=== PATIENT | male | born 2000 | race Asian ===

== ENCOUNTER 2022-04-10 08:50 | Emergency (ER) | payer OTHER, SELFPAY ==
[2022-04-10 08:56] VITALS: BP 131/82; PULSE 61; RESP 18; TEMP 36.3; O2SAT 95; BMI 24.0
--- NOTE | 2022-04-10 09:08 | CRLHL7_ITS ---
For Patients: As a result of the Century Cures Act, medical imaging exams and procedure reports are released immediately into your electronic medical record. You may view this report before your referring provider. If you have questions, please contact your health care provider. INDICATION: Gameskeeper`s thumb. TECHNIQUE: Left thumb, 3 views. COMPARISON: None. FINDINGS: Bones: Alignment is normal. No fractures or bone lesions. Joint spaces: Unremarkable. Soft tissues: Mild soft tissue swelling. IMPRESSION: No acute or significant findings. If there is clinical concern for tear of the ulnar collateral ligament, consider MRI. Dictated by Dave Daniels MD @ 04/10/2022 1:08:46 PM (Electronically Signed)
[2022-04-10] MEDS: IBUPROFEN 200 MG TABLET 600 MG PO (09:19)
--- NOTE | 2022-04-10 09:49 | ED_ITS ---
HPI - Extremity Injury (Upper) General Date Seen: 04/10/22 Chief Complaint: Extremity Pain/Injury, Upper Stated Complaint: Broken left thumb Time Seen by Provider: 04/10/22 08:58 Source: patient Mode of arrival: ambulatory Limitations: no limitations History of Present Illness HPI narrative: Patient is a 22-year-old gentleman who was doing karate yesterday and suffered a gamekeeper/skier thumb injury. To his left thumb. He is tender on the medial side of his thumb in the web space, and presents here for evaluation. He did take some ibuprofen yesterday along with some icing of this area has previously injured it. But has not previously broken it denies any numbness tingling or weakness. 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 complaint: injury to: left and finger Other injuries: none Hand dominance: Right Place: school Severity: moderate Relieving factors: none Exacerbating factors: movement of extremity Context: direct blow and sports-related injury Associated symptoms: denies other symptoms Related Data Home Medications Medication Instructions Recorded Confirmed digoxin 250 mcg (0.25 mg) tablet 250 mcg PO QDAY 01/31/22 01/31/22 furosemide 20 mg tablet 10 mg PO QAM 01/31/22 01/31/22 montelukast 10 mg tablet 10 mg PO QDAY 01/31/22 01/31/22 omeprazole 20 mg capsule,delayed 20 mg PO QDAY 01/31/22 01/31/22 release sildenafil 25 mg tablet 20 mg PO TID 01/31/22 01/31/22 spironolactone 25 mg tablet 25 mg PO QDAY 01/31/22 01/31/22 Previous Rx's Medication Instructions Recorded sertraline 50 mg tablet 150 mg PO QDAY #270 tabs 01/31/22 Allergies Allergy/AdvReac Type Severity Reaction Status Date / Time No Known Allergies Allergy Unknown Unverified 01/31/22 14:52 Review of Systems Status of ROS: Reports: 6 or more systems reviewed and unremarkable except as noted in History and below [facility] Medical History Atypical pneumonia Laceration of skin of forehead Muscle hemorrhage Sprain Traumatic hematoma of right hand Social History Narrative: adopted- age 18, [place] Smoking Status: Never smoker service: No Exam Narrative: Exam Narrative: Examination of the left thumb shows tenderness on the medial side between the 1st interspace. Opening up of this or pincher sericulturist exacerbates his discomfort, he has full motion of his IP flexion, cap refill normal sensation normal, no bruising but swelling is noted. No rotational deformity, the remainder of the hand is normal, wrist has full range of motion Const: Vital Signs, click to edit/add: Vital Signs - 24 hr 04/10/22 08:56 Temperature 97.4 F L Pulse Rate [Right Pulse Oximeter] 61 Respiratory Rate 18 Blood Pressure [Le ft Upper Arm] 131/82 Pulse Oximetry 95 Oxygen Delivery Me thod Room Air Documenting provider has reviewed patient's vital signs: yes Course Vital Signs Vital signs: Initial Vital Signs Temperature 97.4 F L 04/10/22 08:56 Temperature Source Temporal Artery Scan 04/10/22 08:56 Pulse Rate 61 04/10/22 08:56 Respiratory Rate 18 04/10/22 08:56 Blood Pressure 131/82 04/10/22 08:56 Blood Pressure Mean 98 04/10/22 08:56 Blood Pressure Position Sitting 04/10/22 08:56 Pulse Oximetry 95 04/10/22 08:56 Oxygen Delivery Method 04/10/22 08:56 Vital Signs Temperature 97.4 F L 04/10/22 08:56 Pulse Rate 61 04/10/22 08:56 Respiratory Rate 18 04/10/22 08:56 Blood Pressure 131/82 04/10/22 08:56 Pulse Oximetry 95 04/10/22 08:56 Oxygen Delivery Method 04/10/22 08:56 Temperature 97.4 F L 04/10/22 08:56 Pulse Rate 61 04/10/22 08:56 Respiratory Rate 18 04/10/22 08:56 Blood Pressure 131/82 04/10/22 08:56 Pulse Oximetry 95 04/10/22 08:56 Oxygen Delivery Method 04/10/22 08:56 MDM - Extremity Injury (Upper) MDM Narrative Medical decision making narrative: Patient is seen and assessed, clinically this is gamekeeper's thumb, but x-ray will be done to rule out any obvious fracture. Differential Diagnosis Differential diagnosis: Likely sprain and strain of wrist, fracture of wrist, finger sprain, dislocation of finger, Colles' fracture, fracture of hand and dislocation of shoulder Medical Records Attestation: I reviewed the patient's medical records. Imaging Data Thumb x-ray: Attestation: I have reviewed the pertinent imaging results. My impression: My review of the x-ray shows no acute findings. Discharge Plan Discharge Clinical Impression: Gamekeeper's thumb of left hand Patient Disposition: Home, Self-Care Condition: Stable Instructions: Skier's Thumb (ED) Additional Instructions: Wear splint always, you will have to hold off on any striking action with ronaldo, involving her left hand. Splint may come off to clean herself but then right back on for sleeping in any activity, follow up with Orthopedics, within the next 10 days, Tylenol or ibuprofen for the discomfort. Follow up appointment scheduled on 04/18 with an 8:20am arrival time. [facility] [address] [place] [id number] Prescriptions: No Action furosemide 20 mg tablet 10 mg PO QAM montelukast 10 mg tablet 10 mg PO QDAY omeprazole 20 mg capsule,delayed release(DR/EC) 20 mg PO QDAY spironolactone 25 mg tablet 25 mg PO QDAY digoxin 250 mcg (0.25 mg) tablet 250 mcg PO QDAY sildenafil 25 mg tablet 20 mg PO TID Rx Instructions: administer 30 minutes to 4 hours before activity sertraline 50 mg tablet 150 mg PO QDAY Qty: 270 3RF Follow Up/Referrals: Magda Winchester MD [Primary Care Provider] - Stand Alone Forms: [employer] Info Instructions
--- OUTSIDE RECORDS SUMMARY | 2022-04-10 09:50 | XMS_ITS | Clinical Summary ---
:2000 Author Organization [facility] [place] [address] Care Team Providers Name Role Phone Cordell Juarez MD Unavailable [facility] Primary Care Provider Unavailable Allergies No known active allergies Medications Medication Sig Dispensed Refills Start Date End Date Status lisinopril (PRINIVIL; Take 1 tablet by 0 07/23/2014 Active ZESTRIL) 10 mg tablet mouth once daily. loratadine (CLARITIN) Take 1 tablet by 0 10/14/2015 Active 10 mg tablet mouth once daily. spironolactone Take 0.5 tablets 0 12/07/2015 Active (ALDACTONE) 25 mg by mouth once tablet daily. Cardiology fills Dr. Cordell Juarez [facility] digoxin (LANOXIN) 250 Take 1 tablet by 0 01/17/2016 Active mcg tablet mouth once daily. warfarin (COUMADIN) 5 Half a pill daily 90 tablet 1 08/29/2016 Active mg tabletIndications: on Saturday and Anticoagulation goal of Saturday. Full pill INR 2.0 to 2.5 by mouth all other days. metoprolol tartrate 1.5 tab BID 0 10/10/2016 Active (LOPRESSOR) 25 mg tablet furosemide (LASIX) 20 Take 20 mg by 0 10/10/2016 Active mg tablet mouth once daily. sildenafil, Take 1 tablet by 90 tablet 11 06/27/2017 Active antihypertensive, mouth 3 times (REVATIO) 20 mg tablet daily for Pulmonary Hypertension. Never use with Nitro, Terazosin or Doxazosin. montelukast (SINGULAIR) TAKE ONE TABLET 30 tablet 0 08/28/2018 Active 10 mg BY MOUTH ONE TIME tabletIndications: DAILY AT BEDTIME Seasonal allergic rhinitis due to pollen traZODone (DESYREL) 50 Take 1 tablet by 5 10/14/2018 Active mg tablet mouth at bedtime. fluvoxaMINE 25 mg Take 1 tablet by 1 11/18/2018 Active tablet mouth once daily. 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 Cordell Juarez, reaming machine tender [facility]otaxy Encounters Date Type Specialty Care Team Description 02/14/2022 Telemedicine Manju Grimm DIRECTOR STAFFING Zia led Appointment 01/11/2022 Telemedicine Catarina Zacarias PA [facility] (No vitals taken ) 01/09/2022 Travel from Last 3 Months Immunizations Name Administration Dates Next Due DTaP 01/03/2005, 02/16/2003, 01/22/2002, 11/27/2001, 10/16/2001 HIB-HepB (Comvax) 11/27/2001, 10/16/2001 Hepatitis A (Peds) 11/18/2014, 02/01/2014 Hepatitis B (Peds) 02/16/2003, 11/27/2001, 10/16/2001 Human Papilloma Virus Vaccine 11/18/2014, 04/23/2014, 2013 Inactivated Polio Vaccine 01/03/2005, 01/22/2002, 11/27/2001 , 10/16/2001 Influenza A (H1N1), Inactivated (Age 1206/15/2009, 04/11/2009 >=3 Years) Influenza, IIV3 (Age >=3 years) 03/18/2009 Influenza, IIV4 05/29/2017, 08/07/2016, 07/29/2015 MMR 01/03/2005, 02/16/2003, 10/16/2001 Meningococcal Vaccine (Menactra) 12/04/2011 Pneumococcal conj 7-Valent (Prevnar 7) 01/01/2007, 2, 11/27/2001, 10/16/2001 Tdap 12/04/2011 Varicella Vaccine 12/16/2008, 10/16/2001 Social History Tobacco Use Types Packs/Day Years Used Date Never Smoker Smokeless Tobacco: Never Used Tobacco Cessation: Counseling Given: Yes Alcohol Use Standard Drinks/Week Comments No 0 (1 standard drink = 0.6 oz pure alcoho l) Sex Assigned at Date Recorded Not on file Obstetrics History Last Filed Vital Signs Vital Sign Reading Time Taken Comments Blood Pressure 97/62 11/24/2018 8:16 AM CDT tower Pulse 51 11/24/2018 8:16 AM CDT Temperature 36.3 ??C (97.3 ??F) 11/24/2018 8:16 AM CDT Respiratory Rate 16 02/20/2015 5:18 PM CDT Oxygen Saturation 94% 11/24/2018 8:16 AM CDT Inhaled Oxygen Concentration - - Weight 62.6 kg (138 lb) 11/24/2018 8:16 AM CDT Height 162.6 cm (5' 4) 11/24/2018 8:16 AM CDT Body Mass Index 23.69 11/24/2018 8:16 AM CDT Plan of Treatment Health Maintenance Due Date Last Done Comments BMI (ht and wt on same day) for 11/25/2019 11/24/2018 age 18+ COVID-19 vaccine series (3 - 11/27/2021 10/02/2021, 021 Booster for Tavon series) Tetanus booster 12/03/2021 12/04/2011 Influenza for age 9-49 02/15/2022 05/29/2017, 08/07/2016, 07/29/2015, Additional history exists Depression screening for age 12+ 10/10/2022 10/10/2021, , 01/21/2019, Additional history exists Tdap Completed 12/04/2011 HPV series for age 9-26 Completed 11/18/2014, 04/23/2014, 02/01/2014 Hepatitis C screening for age Completed 11/24/2018 18-79 Results Not on filefrom Last 3 Months Insurance Payer Benefit Plan / Subscriber ID Effective Dates Phone Addre ss Type Group PREFERRED ONE PREFERRED ONE [id number] 2021-Prese [address] [address] [place] [address] [facility] SH[facility]ED [id number] 2020-Presen [address] [address] [place] [address] Bear Bills Personal/Family Father [id number] (Home) [place] [address] Care Teams Signalman Relationship Specialty Start Date End Date Ana Soria PCP - General 05/20/17 Cordell Juarez MD Cardiology Cardiology - Pediatric 12/07/15
--- OUTSIDE RECORDS SUMMARY | 2022-04-10 09:51 | XMS_ITS | Encounter Summary ---
:2000 Author Organization [place] Address [address] 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) Chest pain, unspecified type Single ventricle with heterotaxia syndrome Cordell Juarez MD Procedures Cardiopulmonary Stress Test - Adult [address] [facility] [place], [place] [address] Referral ID Status Reason Start Date Expiration Date Visits Requ ested Visits Authorized [id number] Closed 02/06/2022 02/06/2023 1 1 Reason for Visit CV Testing (Routine) - Closed Specialty Diagnoses / Procedures Referred By Contact Refer red To Contact Diagnoses 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) Chest pain, unspecified type Single ventricle with heterotaxia syndrome Cordell Juarez MD Procedures Cardiopulmonary Stress Test - Adult [address] [place], [place] [address] Referral ID Status Reason Start Date Expiration Date Visits Requ ested Visits Authorized [id number] Closed 02/06/2022 02/06/2023 1 1 Encounter Details Date Type Department Care Team Description 04/03/2022 Hospital Encounter [facility] Cordell Juarez , 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; Imani D-TGA (dextro-transposition of great art eries); [facility] [address] [place] pain, unspecified type; [facility] Single ventricle with heterotaxia syndro me [address] [place] [id number] [phone] Social History Tobacco Use Types Packs/Day Years Used Date Smoking Tobacco: Never Smokeless Tobacco: Never Comments: none at home Alcohol Use Standard Drinks/Week Comments No 0 (1 standard drink = 0.6 oz pure alcoho l) Sex Assigned at Date Recorded Male 03/09/2019 1:21 PM CDT COVID-19 Exposure Response Date Recorded In the last 10 days, have you been in contact No / Unsure 04/03/2022 12:01 PM CDT with someone who was confirmed or suspected to have Coronavirus/COVID-19? documented as of this encounter Last Filed Vital Signs Vital Sign Reading Time Taken Comments Blood Pressure - - Pulse - - Temperature - - Respiratory Rate - - Oxygen Saturation - - Inhaled Oxygen Concentration - - Weight 74 kg (163 lb 2.3 oz) 04/03/2022 2:20 PM CDT Height 163.3 cm (5' 4.29) 04/03/2022 2:20 PM CDT Body Mass Index 27.75 04/03/2022 2:20 PM CDT documented in this encounter Medications at Time of Discharge Medication Sig Dispensed Refills Start Date End Date amoxicillin (AMOXIL) 500 Take 4 capsules 20 capsule 3 2018 MG capsuleIndications: (2,000 mg) by mouth S/P Fontan procedure as needed (one hour prior to dental cleanings) digoxin (LANOXIN) 250 MCG Take 1 tablet (250 90 tablet 3 tabletIndications: SVT mcg) by mouth daily (supraventricular tachycardia) (H) furosemide (LASIX) 20 MG Take 0.5 tablets (10 45 tablet 3 1 tabletIndications: S/P mg) by mouth daily Fontan procedure montelukast (SINGULAIR) Take 1 tablet (10 mg) 90 tablet 3 1 10 MG tabletIndications: by mouth daily S/P Fontan procedure, Hypoplastic left heart syndrome, Palpitations omeprazole (PRILOSEC) 20 Take 1 capsule ([address] capsuleIndications: mg) by mouth daily Chest pain, unspecified type sertraline (ZOLOFT) 25 MG TAKE 1 TABLET (25 MG) 60 tablet 0 05/25/2020 tabletIndications: BY MOUTH DAILY IF Moderate episode of TOLERATING MEDICINE recurrent major AFTER 2 WEEKS, CAN depressive disorder (H) INCREASE TO 2 TABLETS (50 MG) DAILY sildenafil (REVATIO) 20 Take 1 tablet (20 mg) 90 tablet 11 0 09/28/2021 MG tabletIndications: by mouth three times Single ventricle with daily for pulmonary heterotaxia syndrome hypertension. Never use with nitroglycerin, terazosin or doxazosin. spironolactone Take 1 tablet (25 mg) 90 tablet 3 03/17/2021 (ALDACTONE) 25 MG by mouth daily tabletIndications: Hypoplastic left heart syndrome traZODone (DESYREL) 50 MG TAKE ONE TABLET BY 0 tablet MOUTH ONE TIME DAILY AT BEDTIME documented as of this encounter Plan of Treatment Upcoming Encounters Date Type Specialty Care Team Description 07/27/2022 Ancillary Procedure Cardiology Cordell Juarez MD [address] [place] [address] [address] (Wo rk) 07/27/2022 Office Visit Cardiology Cordell Juarez MD [address] [place], [place] [id number] (Wo rk) documented as of this encounter Procedures Procedure Name Priority Date/Time Associated Comments Diagnosis CARDIOPULMONARY STRESS Routine 04/03/2022 2:21 Double-outlet r ight Results for this TEST - ADULT PM CDT ventricle with procedure are in ventricular septal the resul ts defect section. D-TGA (dextro-transpositi on of great arteries) Chest pain, unspecified type Single ventricle with heterotaxia syndrome documented in this encounter Results CARDIOPULMONARY STRESS TEST - ADULT (04/03/2022 2:21 PM CDT) Component Value Ref Test Analysis Performed Pathologis t Range Method Time At Signature Target HR 198 Baseline BP 128/82 mmHg Baseline HR 60 bpm Rest BP 125/82 mmHg Rest 65 bpm Last Stress BP 171/72 mmHg Max HR 173 Max Predicted HR 87 % Exercise duration (min) 13 min Exercise duration (sec) 0 sec Estimated workload 9.1 METS Angina Index 0 RPE 17 PREDICTED VO2MAX 42.4 Max 29,583 CARPULSTRPH1 3 mins [id number] 0 sec CARPULSTRPH1 87 bpm CARPULBPPH1 133/83 mmHg CARPULSTRPH1 95 % SpO2 CARPULSTRPH2 6 mins [id number] 0 sec CARPULSTRPH2 112 bpm CARPULBPPH2 143/77 mmHg CARPULSTRPH2 93 % SpO2 CARPULSTRPH3 9 mins [id number] 0 sec CARPULSTRPH3 130 bpm CARPULBPPH3 161/82 mmHg CARPULSTRPH3 91 % SpO2 CARPULSTRPH4 12 mins [id number] 0 sec CARPULSTRPH4 167 bpm CARPULBPPH4 171/72 mmHg CARPULSTRPH4 91 % SpO2 CARPULSTRPH5 13 mins [id number] 0 sec CARPULSTRPH5 173 bpm CARPULSTRPH5 90 % SpO2 CARPULSTRPB1 1 mins [id number] 0 sec CARPULSTRPHB1 154 bpm CARPULBPPHB1 110/61 mmHg CARPULSTRPHB1 90 % SpO2 CARPULSTRPHB2 3 mins [id number] 0 sec CARPULSTRPHB2 102 bpm CARPULBPPHB2 159/108 mmHg CARPULSTRPHB2 93 % SpO2 CARPULSTRPHB3 5 mins [id number] 0 sec CARPULSTRPHB3 108 bpm CARPULBPPHB3 139/98 mmHg CARPULSTRPHB3 92 % SpO2 Max 31.92 ml/kg/m in Predicted 42.40 ml/kg/m in Percent 75 % RER 1.12 VE/VCO2 Whiteside 28.33 CARPULANEROBICTHRES 31.20 ml/kg/m in CARPULANAEROBICTHRESPERDICTED 74.0 % Actual SVC (L) 3.23 Predicted SVC (L) 4.66 Percent SVC (L) 69 % Actual FVC (L) 3.31 Predicted FVC (L) 4.66 Percent FVC (L) 71 % Actual FVC (L) 2.65 Predicted FVC (L) 3.94 Percent FVC (L) 67 % Actual FEV 1.0/FVC % 80.0 Predicted FEV 1.0/ FVC % 83.5 Percent FEV 1.0 FVC% 96 % Rest 4.30 ml/kg/m in Max 31.92 ml/kg/m in Rest 1.20 Rest 284.00 ml/min Max 2,896.0 ml/min 0 Rest 0.90 Max 1.12 Rest 5.00 ml/beat Max 13.70 ml/beat Rest 11.10 l/min Max 89.50 l/min Rest 512.00 ml Max 1,957.0 ml 0 Rest 22.00 br/min Max 46.00 br/min Rest 88.00 Max 4.00 Rest 35.00 Max 34.00 Rest 39.00 Max 31.00 Max 28.33 Rest 114.00 Max 115.00 Rest 31.00 Max 34.00 Rest 96.00 % Max 90.00 % Anatomical Region Laterality Modality Other Specimen (Source) Anatomical Location Collection Method / Collectio n Time Received Time / Laterality Volume Narrative 04/04/2022 8:32 AM CDT ?A cardiopulmonary stress test was performed following a Raul ramp protocol with the patient exercising for 13 minutes and 0 seconds under the supervision of Dr. Panda. ??Blood p ressure and heart rate demonstrated a normal response to exercise. ?The stress electrocardiogram was non-diagnostic due to ST changes as a result of digitalis. ?The patient's exercise capacity is mildly impaired. ?A prior study was conducted on 09/26/2021. This study has changes noted with the prior study. This represents an 8% increase in functional capacity. The baseline spirometry revealed a moder ately restrictive lung defect. The patient's oxygen saturation remained bet ween 90-96% throughout testing. A pulmonary limitation cannot be ruled out due to a drop in oxygen saturation, low breathing reserve, and a naerobic threshold was achieved but was a high percentage of the VO2 max . The patient did not have any symptoms during exercise and the test wa s terminated at the patient's request secondary to leg fatigue. Stress Findings A cardiopulmonary stress test was perfor med following a Raul ramp protocol with the patient exercising for 13 minutes and 0 seconds under the supervision of Dr. Panda. Blood pressure and heart rate de monstrated a normal response to exercise . The patient's exercise capacity is mildly impaired. The test was stopped due to patient request and leg fatigue. No symptoms were reported by the patient during the stress test. Functional capacity re sponse is Class I: >75%. The patient experienced no angina during the test. ECG Baseline electrocardiogram demonstrates sinus rhythm, nonspecific ST-T abnormalities and incomplete right bundle branch block. The stress electrocardiogram was non-divya gnostic. The stress electrocardiogram was non-diagnostic due to ST changes as a result of digitalis. Arrhythmias during stress: Occasional PVCs. There were no arrhythmias during recovery. Cardiopulmonary Prior study A prior study was conducted on 09/26/2021 . This study has changes noted with the prior study. This represents an 8% increase in functional capacity. Cordell Juarez MD CV CARDIAC SERVICES ORDERABL ES documented in this encounter Visit Diagnoses Diagnosis 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 Transposition of great vessels, double o utlet right ventricle D-TGA (dextro-transposition of great art eries) Complete transposition of great vessels Chest pain, unspecified type Single ventricle with heterotaxia syndro me Other specified congenital anomalies documented in this encounter Additional Health Concerns Assessment Noted Time PHQ-9 Depression Total Score: 10 04/01/2019 9:14 AM CD T documented as of this encounter Care Teams Human Resources Analyst Relationship Specialty Start Date End Date Magda Winchester, PCP - General Family Medicine Magnus Zayas, Assigned PCP 11/20/[address] [place] [address] [address] [place] [address] documented as of this encounter
--- OUTSIDE RECORDS SUMMARY | 2022-04-10 09:51 | XMS_ITS | Encounter Summary ---
:2000 Author Organization [place] Address [address] [place] [address]. [place] [address] Care Team Providers Name Role Phone Magnus Zayas DO Unavailable Magda Winchester MD Primary Care Provider Encounter Details Date Type Department Care Team Description 11/01/2021 Lab [facility] Lab Tachyc ardia with heart rate 100-120 beats per minute; [place] D-TGA (dextro-transposition of great arteries); 9 [facility] Chest pain, unspecified type 1st Floor [place], [place] [phone] Social History Tobacco Use Types Packs/Day Years Used Date Smoking Tobacco: Never Smokeless Tobacco: Never Comments: none at home Alcohol Use Standard Drinks/Week Comments No 0 (1 standard drink = 0.6 oz pure alcoho l) Sex Assigned at Date Recorded Male 03/09/2019 1:21 PM CDT COVID-19 Exposure Response Date Recorded In the last 10 days, have you been in contact with No / Unsu re 11/01/2021 4:24 PM CDT someone who was confirmed or suspected to have Coronavirus/COVID-19? documented as of this encounter Plan of Treatment Upcoming Encounters Date Type Specialty Care Team Description 07/27/2022 Ancillary Procedure Cardiology Cordell Juarez MD [address] [place], [place] [address] (Wo rk) 07/27/2022 Office Visit Cardiology Cordell Juarez MD [address] [place], [place] [address] (Wo rk) documented as of this encounter Procedures Procedure Name Priority Date/Time Associated Diagnosis Comme nts DIGOXIN LEVEL Routine 11/01/2021 4:31 PM Tachycardia with hear t Results for this CDT rate 100-120 beats per proce dure are in minute the results D-TGA section. (dextro-transposition of great arterie s) Chest pain, unspecified type documented in this encounter Results Digoxin level (11/01/2021 4:31 PM CDT) athologist Signature Digoxin 1.6 ug/L 11/01/2021 8:31 [facility] PM CDT Comment: Therapeutic Range: Adults: 0.5-2.0 ug/L The reference range for infants (less th an 3 mo) is thought to be 3.0-4.0 ug/L; infants tolerate more digoxin because they have more binding sites and an increased metabolic rate. Specimen Anatomical Collection Method / Collection Time Recei dipesh Time (Source) Location / Volume Laterality Blood STRUCTURE OF LEFT Venipuncture / 11/01/2021 4:31 11/01 4:31 UPPER LIMB / Unknown PM CDT PM CDT Unknown Cordell Juarez MD LAB - BLOOD ORDERABLES Performing Organization Address City/State/ZIP Code Phon [place] [address] Lab [address] [facility] [address] Building, Room 3-580 documented in this encounter Visit Diagnoses Diagnosis Tachycardia with heart rate 100-120 beat s per minute D-TGA (dextro-transposition of great art eries) Complete transposition of great vessels Chest pain, unspecified type documented in this encounter Additional Health Concerns Assessment Noted Time PHQ-9 Depression Total Score: 10 04/01/2019 9:14 AM CD T documented as of this encounter Care Teams Inseamer Relationship Specialty Start Date End Date Magda Winchester, PCP - General Family Medicine Magnus Zayas, Assigned PCP 11/20/[address] [place] [address] [address] [place] [address] documented as of this encounter
--- OUTSIDE RECORDS SUMMARY | 2022-04-10 09:51 | XMS_ITS | Clinical Summary ---
:2000 Author Organization [place] Address [facility] [place] [address] Care Team Providers Name Role Phone Magnus Zayas DO Unavailable Magda Winchester MD Primary Care Provider Allergies Active Allergy Reactions Severity Noted Date Comments Seasonal Allergies 01/17/2016 Itchy eye s, runny nose, hives when around tall gra sses Medications Medication Sig Dispensed Refills Start Date End Date Status amoxicillin (AMOXIL) Take 4 capsules 20 capsule 3 04/01/2019 Active 500 MG (2,000 mg) by capsuleIndications: mouth as needed S/P Fontan procedure (one hour prior to dental cleanings) sertraline (ZOLOFT) 25 TAKE 1 TABLET (25 60 tablet 0 0 Active MG tabletIndications: MG) BY MOUTH Moderate episode of DAILY IF recurrent major TOLERATING depressive disorder MEDICINE AFTER 2 (H) WEEKS, CAN INCREASE TO 2 TABLETS (50 MG) DAILY spironolactone Take 1 tablet (25 90 tablet 3 03/17/2021 Active (ALDACTONE) 25 MG mg) by mouth tabletIndications: daily Hypoplastic left heart syndrome montelukast Take 1 tablet (10 90 tablet 3 03/17/2021 Active (SINGULAIR) 10 MG mg) by mouth tabletIndications: S/P daily Fontan procedure, Hypoplastic left heart syndrome, Palpitations furosemide (LASIX) 20 Take 0.5 tablets 45 tablet 3 03/17/2021 Active MG tabletIndications: (10 mg) by mouth S/P Fontan procedure daily traZODone (DESYREL) 50 TAKE ONE TABLET 0 08/01/2021 Active MG tablet BY MOUTH ONE TIME DAILY AT BEDTIME omeprazole (PRILOSEC) Take 1 capsule 90 capsule 3 09/28/[address] (20 mg) by mouth capsuleIndications: daily Chest pain, unspecified type sildenafil (REVATIO) Take 1 tablet (20 90 tablet 11 09/28/2021 Active 20 MG mg) by mouth tabletIndications: three times daily 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 Never use with nitroglycerin, terazosin or doxazosin. digoxin (LANOXIN) 250 Take 1 tablet 90 tablet 3 11/02/2021 Active MCG tabletIndications: (250 mcg) by SVT (supraventricular mouth daily tachycardia) (H) Active Problems Problem Noted Date Depressed 10/01/2018 Bilateral groin pain 09/01/2018 Psoas hematoma, right, secondary to anticoagulant ther apy 08/30/2018 Atrial tachycardia 01/18/2016 Tachycardia 08/05/2014 Fever 08/05/2014 Tachycardia with heart rate 100-120 beats per minute 0 08/05/2014 Overview: Diagnosis updated by automated process. Provider to review and confirm. Colitis 12/06/2010 Attention deficit hyperactivity disorder (ADHD) 2007 Overview: Problem list name updated by automated p rocess. 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 Provider to review Congenital anomalies of spleen Overview: Polysplenia Resolved Problems Problem Noted Date Resolved Date Esophageal reflux 02/04/2007 Encounters Date Type Specialty Care Team Description 04/03/2022 Hospital Encounter Cardiology Cordell Juarez Double-ou tlet right ventricle with ventricular septal defect; MD [place] D-TGA (dextro-t ransposition of great arteries); Chest pain, uns pecified type; Single ventricl e with heterotaxia syndrome 04/03/2022 Travel 03/13/2022 Telephone Pediatric Cardiology Cordell Juarez Prior A [facility] Aldo Barajas MD Medication (Sildenafil - n ew insurance, timothy ed) 02/07/2022 Telephone Pediatric Cardiology Cordell Juarez MD 02/06/2022 Office Visit Cardiology Cordell Juarez Double-outlet r ight ventricle with ventricular septal defect; MD [place] D-TGA (dextro-t ransposition of great arteries); Chest pain, uns pecified type; Single ventricl e with heterotaxia syndrome 02/06/2022 Travel 01/30/2022 Travel from Last 3 Months Immunizations Name Administration Dates Next Due Comvax (HIB/HepB) 11/27/2001, 10/16/2001 DTAP (<7y) 01/03/2005, 02/16/2003, 01/22/2002, 11/27/2001, 10/16/2001 HepB 02/22/2003 Influenza (H1N1) 06/15/2009, 04/11/2009 Influenza (IIV3) PF 06/07/2005, 04/27/2002, 03/23/2002 MMR 01/03/2005, 02/16/2003, 10/16/2001 Pneumococcal (PCV 7) 01/22/2002, 11/27/2001, 10/16/2001 Poliovirus, inactivated (IPV) 01/03/2005, 01/22/2002, 2001, 10/16/2001 Varicella 12/16/2008, 10/16/2001 Family History Patient is adopted Medical History Relation Comments Unknown/Adopted Other 1 child adopted from [place] at 10mo of age Unknown/Adopted Other 2 Unknown/Adopted Other 3 Relation Status Comments Other 1 Other 2 Other 3 Social History Tobacco Use Types Packs/Day Years [...] was confirmed or suspected to have Coronavirus/COVID-19? Last Filed Vital Signs Vital Sign Reading Time Taken Comments Blood Pressure 126/79 02/06/2022 3:28 PM CDT Pulse 83 02/06/2022 3:28 PM CDT Temperature 36.1 ??C (96.9 ??F) 01/11/2020 12:17 AM CDT Respiratory Rate 18 02/17/2020 12:34 PM CDT Oxygen Saturation 94% 02/06/2022 3:28 PM CDT Inhaled Oxygen Concentration - - Weight 74 kg (163 lb 2.3 oz) 04/03/2022 2:20 PM CDT Height 163.3 cm (5' 4.29) 04/03/2022 2:20 PM CDT Body Mass Index 27.75 04/03/2022 2:20 PM CDT Plan of Treatment Upcoming Encounters Date Type Specialty Care Team Description 07/27/2022 Ancillary Procedure Cardiology Cordell Juarez MD [address] [place], [place] [phone] (Wo rk) 07/27/2022 Office Visit Cardiology Cordell Juarez MD [address] [place], [place] [address] (Wo rk) Health Maintenance Due Date Last Done Comments ANNUAL REVIEW OF HM ORDERS 2000 DEPRESSION ACTION PLAN 2000 Pneumococcal Vaccine: 01/30/2006 01/01/2007, 01/01/2007, Pediatrics (0 to 5 Years) 01/22/2002, Additional and At-Risk Patients (6 to history exists 64 Years) (1 - PCV) YEARLY PREVENTIVE VISIT 12/07/2011 12/06/2010, 01/03/2005 HEPATITIS C SCREENING 01/30/2018 PHQ-9 10/01/2019 04/01/2019 COVID-19 Vaccine (3 - 11/27/2021 10/02/2021, 09/23/2020 Booster for Tavon series) DTAP/TDAP/TD IMMUNIZATION 12/03/2021 12/04/2011, 01/03/2005 , (7 - Td or Tdap) 02/16/2003, Additional history exists INFLUENZA VACCINE (#1) 2022 02/22/2021, 04/01/2019, 04/22/2018, Additional history exists ADVANCE CARE PLANNING 10/03/2023 10/02/2018 HEPATITIS B IMMUNIZATION Completed 02/22/2003, 02/16/2003, 11/27/2001, Additional history exists IPV IMMUNIZATION Completed 01/03/2005, 01/22/2002, 11/27/2001, Additional history exists MENINGITIS IMMUNIZATION Aged Out 12/04/2011 No longe r eligible based on patient 's age to complete this topic HPV IMMUNIZATION Completed 11/18/2014, 04/23/2014, 02/01/2014 HIV SCREENING Completed 12/22/2019 Procedures Procedure Name Priority Date/Time Associated Comments Diagnosis CARDIOPULMONARY STRESS Routine 04/03/2022 2:21 Double-outlet r ight Results for this TEST - ADULT PM CDT ventricle with procedure are in ventricular septal the resul ts defect section. D-TGA (dextro-transpositi on of great arteries) Chest pain, unspecified type Single ventricle with heterotaxia syndrome from Last 3 Months Results CARDIOPULMONARY STRESS TEST - ADULT (04/03/2022 [...] VO2MAX 42.4 Max 29,583 CARPULSTRPH1 3 mins [id number] 0 sec CARPULSTRPH1 87 bpm CARPULBPPH1 133/83 mmHg CARPULSTRPH1 95 % SpO2 CARPULSTRPH2 6 mins [id number] 0 sec CARPULSTRPH2 112 bpm CARPULBPPH2 143/77 mmHg CARPULSTRPH2 93 % SpO2 CARPULSTRPH3 9 mins [id number] 0 sec CARPULSTRPH3 130 bpm CARPULBPPH3 161/82 mmHg CARPULSTRPH3 91 % SpO2 CARPULSTRPH4 12 mins [id number] 0 sec CARPULSTRPH4 167 bpm CARPULBPPH4 171/72 mmHg CARPULSTRPH4 91 % SpO2 CARPULSTRPH5 13 mins [id number] 0 sec CARPULSTRPH5 173 bpm CARPULSTRPH5 90 % SpO2 CARPULSTRPB1 1 mins [id number] 0 sec CARPULSTRPHB1 154 bpm CARPULBPPHB1 110/61 mmHg CARPULSTRPHB1 90 % SpO2 CARPULSTRPHB2 3 mins [id number] 0 sec CARPULSTRPHB2 102 bpm CARPULBPPHB2 159/108 mmHg CARPULSTRPHB2 93 % SpO2 CARPULSTRPHB3 5 mins [id number] 0 sec CARPULSTRPHB3 108 bpm CARPULBPPHB3 139/98 mmHg CARPULSTRPHB3 92 % SpO2 Max 31.92 ml/kg/m in Predicted 42.40 ml/kg/m in Percent 75 % RER 1.12 VE/VCO2 [place] 28.33 CARPULANEROBICTHRES 31.20 ml/kg/m in CARPULANAEROBICTHRESPERDICTED 74.0 [...] Juarez MD CV CARDIAC SERVICES ORDERABL ES from Last 3 Months Insurance Payer Benefit Plan / Subscriber ID Effective Dates Phone Addre ss Type Group [employer] [facility] [employer] [id number] 2020-Present [address] [address] [place] [address] Jude Bills Personal/Family Self [id number] (Home) [place] [id number] Jude Bills Behavioral Self [id number] ([address]) [place] [address] Advance Directives For more information, please contact: [phone] Latest Code Status on File Code Status Date Activated Date Inactivated Comments Full Code 12/29/2019 4:23 AM 12/29/2019 10:36 AM All basic a nd advanced life-sustaining interventions are performed as marquita ropriate Question Answer Comments Code status determined by: Discussion with patient/ legal de cision maker Code Status History Code Status Date Activated Date Inactivated Comments Full Code 12/28/2019 9:54 AM 12/29/2019 4:23 AM All basic an d advanced life-sustaining interventions are performed as marquita ropriate Question Answer Comments Code status determined by: Unable to determine; FULL CODE un til documents or legal decision maker available Full Code 12/26/2019 9:20 PM 12/28/2019 9:54 AM All basic an d advanced life-sustaining interventions ar e performed as appropriate Question Answer Comments Code status determined by: Unable to determine; FULL CODE un til documents or legal decision maker available Full Code 12/25/2019 6:53 PM 12/26/2019 9:20 PM All basic an d advanced life-sustaining interventions ar e performed as appropriate Question Answer Comments Code status determined by: Unable to determine; FULL CODE un til documents or legal decision maker available Full Code 12/24/2019 9:37 PM 12/25/2019 6:53 PM All basic and advanced life-sustaining interventions ar e performed as appropriate Question Answer Comments Code status determined by: Unable to determine; FULL CODE un til documents or legal decision maker available Care Teams Electronics Processor Relationship Specialty Start Date End Date Magda Winchester, PCP - General Family Medicine Magnus Zayas, Assigned PCP 11/20/[address] [place] [address]
--- OUTSIDE RECORDS SUMMARY | 2022-04-10 09:51 | XMS_ITS | Encounter Summary ---
:2000 Author Organization [place] Address [facility] [place] [address] Care Team Providers Name Role Phone Magnus Zayas DO Unavailable [phone] Magda Winchester MD Primary Care Provider Encounter Details Date Type Department Care Team Description 02/07/2022 Telephone [facility] Pediatric LarryCordell blum MD Specialty Clinic [address] [facility] [place] [address] [address] [place] [address] [phone] Social History Tobacco Use Types Packs/Day Years [...] in contact with No / Unsu re 02/06/2022 3:18 PM CDT someone who was confirmed or suspected to have Coronavirus/COVID-19? documented as of this encounter Miscellaneous Notes Telephone Encounter - Florinda Robb CMA - 02/07/2022 5:23 PM CDT LVM for pt to callback to schedule appointments documented in this encounter Plan of Treatment Upcoming Encounters Date Type Specialty Care Team Description 07/27/2022 Ancillary Procedure Cardiology Cordell Juarez MD [address] [facility] [place] [address] (Wo rk) 07/27/2022 Office Visit Cardiology Cordell Juarez MD [address] [facility] [place], [place] [address] (Wo rk) documented as of this encounter Visit Diagnoses Not on filedocumented in this encounter Additional Health Concerns Assessment Noted Time PHQ-9 Depression Total Score: 10 04/01/2019 9:14 AM CD T documented as of this encounter Care Teams Senior Insight Manager International Relationship Specialty Start Date End Date Magda Winchester, PCP - General Family Medicine Magnus Zayas, DO Assigned PCP 11/20/[address] [place] [address] [address] [place], [place] [address] documented as of this encounter
--- OUTSIDE RECORDS SUMMARY | 2022-04-10 09:51 | XMS_ITS | Encounter Summary ---
:2000 Author Organization [place] Address [address] [facility] [place] [address] Care Team Providers Name Role Phone Magnus Zayas DO Unavailable [phone] Magda Winchester MD Primary Care Provider Encounter Details Date Type Department Care Team Description 04/03/2022 Travel Social History Tobacco Use Types Packs/Day Years [...] Ancillary Procedure Cardiology Cordell Juarez MD [address] [facility] [address] [place], [place] [address] (Wo rk) 07/27/2022 Office Visit Cardiology Cordell Juarez MD [address] [place], [place] [address] (Wo rk) documented as of this encounter Visit Diagnoses Not on filedocumented in this encounter Additional Health Concerns Assessment Noted Time PHQ-9 Depression Total Score: 10 04/01/2019 9:14 AM CD T documented as of this encounter Care Teams Senior Living Sales Counselor Relationship Specialty Start Date End Date Magda Winchester, PCP - General Family Medicine Magnus Zayas, DO Assigned PCP 11/20/[address] [place] [address] [address] [place], [place] [phone] documented as of this encounter
--- OUTSIDE RECORDS SUMMARY | 2022-04-10 09:51 | XMS_ITS | Encounter Summary ---
:2000 Author Organization [place] Address [facility] [place] [address] Care Team Providers Name Role Phone Magnus Zayas DO Unavailable [phone] Magda Winchester MD Primary Care Provider Encounter Details Date Type Department Care Team Description 11/06/2021 Telephone [facility] Heart LarryShlomo MD Clinic [address] [address] [place] [phone] Social History Tobacco Use Types Packs/Day Years [...] in contact with No / Unsu re 11/09/2021 3:44 PM CDT someone who was confirmed or suspected to have Coronavirus/COVID-19? documented as of this encounter Miscellaneous Notes Telephone Encounter - Marj Shen - 11/06/2021 3:15 PM CDT Opened in error. documented in this encounter Plan of Treatment Upcoming Encounters Date Type Specialty Care Team Description 07/27/2022 Ancillary Procedure Cardiology Cordell Juarez MD [address] [facility] [address] [place], [place] [address] (Wo rk) 07/27/2022 Office Visit Cardiology Cordell Juarez MD [address] [place], [place] [address] (Wo rk) documented as of this encounter Visit Diagnoses Not on filedocumented in this encounter Additional Health Concerns Assessment Noted Time PHQ-9 Depression Total Score: 10 04/01/2019 9:14 AM CD T documented as of this encounter Care Teams Diesel Retrofit Designer Relationship Specialty Start Date End Date Magda Winchester, PCP - General Family Medicine Magnus Zayas, DO Assigned PCP 11/20/[address] [place] [address] [address] [place], [place] [address] documented as of this encounter
--- OUTSIDE RECORDS SUMMARY | 2022-04-10 09:51 | XMS_ITS | Encounter Summary ---
:2000 Author Organization [place] Address [address] [facility] [place] [address] Care Team Providers Name Role Phone Magnus Zayas DO Unavailable [phone] Magda Winchester MD Primary Care Provider Encounter Details Date Type Department Care Team Description 11/01/2021 Travel Social History Tobacco Use Types Packs/Day [...] Ancillary Procedure Cardiology Cordell Juarez MD [address] [facility] [address] [place], [place] [address] (Wo rk) 07/27/2022 Office Visit Cardiology Cordell Juarez MD [address] [place], [place] [address] (Wo rk) documented as of this encounter Visit Diagnoses Not on filedocumented in this encounter Additional Health Concerns Assessment Noted Time PHQ-9 Depression Total Score: 10 04/01/2019 9:14 AM CD T documented as of this encounter Care Teams Flexo Press Operator Relationship Specialty Start Date End Date Magda Winchester, PCP - General Family Medicine Magnus Zayas, DO Assigned PCP 11/20/[address] [place] [address] 284 [place], [place] [phone] documented as of this encounter
--- OUTSIDE RECORDS SUMMARY | 2022-04-10 09:51 | XMS_ITS | Encounter Summary ---
:2000 Author Organization [place] Address [address] [facility] [place] 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) Chest pain, unspecified type Single ventricle with heterotaxia syndrome Cordell Juarez MD Procedures MR Abdomen w Contrast [address] [place], [place] [id number] [place], [place] [address] Referral ID Status Reason Start Date Expiration Date Visits Requ ested Visits Authorized [id number] Closed 09/28/2021 09/28/2022 1 1 Encounter Details Date Type Department Care Team Description 11/01/2021 [facility] Cordell Juarez Doub le-outlet right ventricle with ventricular septal defect; Procedure Imaging Center MRI D-TGA (dextro-transposition of great art eries); [address] Chest pain, unspecified type ; [address] [address] Single ventricle with heterotaxia syndro me [place], [place] [id number] [place] [address] [phone] [address] (Work) [phone] Social History Tobacco Use Types Packs/Day Years [...] 07/27/2022 Ancillary Procedure Cardiology Cordell Juarez MD [facility] [place] [address] (Wo rk) 07/27/2022 Office Visit Cardiology Cordell Juarez MD [facility] [place] [address] (Wo rk) documented as of this encounter Procedures Procedure Name Priority Date/Time Associated Diagnosis Comme nts MR ABDOMEN W Routine 11/01/2021 5:19 PM Double-outlet right Re sults for this CONTRAST CDT ventricle with procedure are in ventricular septal the resul ts defect section. 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 Noncirrhotic liver morphology. No foc al hepatic lesion. 2. Heterotaxy with polysplenia. 3. Cholelithiasis without cholecystitis. I have personally reviewed the examinati on and initial interpretation and I agree with the findings. YAEL CASAS MD Narrative 11/02/2021 9:19 AM CDT MRCP Without and With Contrast CLINICAL HISTORY: Double-outlet right ve ntricle with ventricular septal defect; D-TGA (dextro-transpositi on of great arteries); Chest pain, unspecified type; Single ventricle with heterotaxia syndrome DATE: 11/01/2021 5:19 PM TECHNIQUE: Images were acquired with and without i ntravenous contrast through the abdomen. The following MR images wer e acquired: TrueFISP, multiplanar T2 weighted, axial T1 in/out of phase, axial fat-saturated T1, diffusion-weighted. Multiplanar T1-w eighted images with fat saturation were before contrast administ ration and at multiple time points following the administration of i ntravenous contrast. ??Contrast dose: 6 ML Gadavist Comparison study: Abdomen and pelvis CT from 09/05/2018. FINDINGS: Biliary Tree: No intra- or extrahepatic biliary ductal dilatation. Pancreas: Intrinsic T1 signal of the souza creas is preserved. No main pancreatic duct dilatation. Liver: Liver measures 16 cm craniocaudal ly. The left hepatic lobe extends to the left side of the abdomen. No hepatic steatosis or iron deposition. Noncirrhotic liver morpholog y. No suspicious focal lesion. Arterially enhancing focus within the he patic segment 6 (series 14 image 40), without enhancement on delaye d phase and no diffusion restriction likely representing arteriov enous shunt. Gallbladder: Cholelithiasis (series 3 im age 23) without cholecystitis. Spleen: Polysplenia, largest measures 9. 1 cm craniocaudally. No focal lesion. Kidneys: No focal renal mass or hydronep hrosis. Adrenal glands: No adrenal nodule or mas s. Bowel: Within normal limits. Lymph nodes: No lymphadenopathy. Blood vessels: Unremarkable. Lung bases: Clear. Described cardiac and great vessel congenital anomalies are evaluated on this study. Bones: No suspicious lesion. Susceptibil ity artifacts of sternal wire. Mesentery and abdominal wall: Unremarkab le. Ascites: None. Procedure Note Yael Casas - 11/02/2021Formattin g of this note might be different from the original. MRCP Without and With Contrast CLINICAL HISTORY: Double-outlet right ve ntricle with ventricular septal defect; D-TGA (dextro-transpositi on of great arteries); Chest pain, unspecified type; Single ventricle with heterotaxia syndrome DATE: 11/01/2021 5:19 PM TECHNIQUE: Images were acquired with and without i ntravenous contrast through the abdomen. The following MR images wer e acquired: TrueFISP, multiplanar T2 weighted, axial T1 in/out of phase, axial fat-saturated T1, diffusion-weighted. Multiplanar T1-w eighted images with fat saturation were before contrast administ ration and at multiple time points following the administration of i ntravenous contrast. Contrast dose: 6 ML Gadavist Comparison study: Abdomen and pelvis CT from 09/05/2018. FINDINGS: Biliary Tree: No intra- or extrahepatic biliary ductal dilatation. Pancreas: Intrinsic T1 signal of the souza creas is preserved. No main pancreatic duct dilatation. Liver: Liver measures 16 cm craniocaudal ly. The left hepatic lobe extends to the left side of the abdomen. No hepatic steatosis or iron deposition. Noncirrhotic liver morpholog y. No suspicious focal lesion. Arterially enhancing focus within the he patic segment 6 (series 14 image 40), without enhancement on delaye d phase and no diffusion restriction likely representing arteriov enous shunt. Gallbladder: Cholelithiasis (series 3 im age 23) without cholecystitis. Spleen: Polysplenia, largest measures 9. 1 cm craniocaudally. No focal lesion. Kidneys: No focal renal mass or hydronep hrosis. Adrenal glands: No adrenal nodule or mas s. Bowel: Within normal limits. Lymph nodes: No lymphadenopathy. Blood vessels: Unremarkable. Lung bases: Clear. Described cardiac and great vessel congenital anomalies are evaluated on this study. Bones: No suspicious lesion. Susceptibil ity artifacts of sternal wire. Mesentery and abdominal wall: Unremarkab le. Ascites: None. IMPRESSION: Hypoplastic left heart statu s post completed Fontan procedure: 1. Noncirrhotic liver morphology. No foc al hepatic lesion. 2. Heterotaxy with polysplenia. 3. Cholelithiasis without cholecystitis. I have personally reviewed the examinati on and initial interpretation and I agree with the findings. YAEL CASAS MD Cordell Juarez MD IMG MRI ORDERABLES documented in this encounter Visit Diagnoses Diagnosis 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 Transposition of great vessels, double o utlet right ventricle D-TGA (dextro-transposition of great art eries) Complete transposition of great vessels Chest pain, unspecified type Single ventricle with heterotaxia syndro me Other specified congenital anomalies documented in this encounter Administered Medications Inactive Administered Medications - up to 3 most recent administrations Medication Order MAR Action Action Date Dose Rate Site gadobutrol (GADAVIST) injection 7.5 Given 11/01/2021 5:03 PM CDT 6 mLs mL 7.5 mL, Intravenous, ONCE, On Sat11/01/21 at 1700, For 1 dose, Supplied by, and administered by MRI. documented in this encounter Additional Health Concerns Assessment Noted Time PHQ-9 Depression Total Score: 10 04/01/2019 9:14 AM CD T documented as of this encounter Care Teams Clinical Registered Nurse Relationship Specialty Start Date End Date Magda Winchester, PCP - General Family Medicine Magnus Zayas, Assigned PCP 11/20/[address] [place] [address] [address] [place] [address] documented as of this encounter
--- OUTSIDE RECORDS SUMMARY | 2022-04-10 09:51 | XMS_ITS | Encounter Summary ---
:2000 Author Organization [place] Address [address] 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) Chest pain, unspecified type Single ventricle with heterotaxia syndrome Cordell Juarez MD Procedures Echo Congenital Adult [facility] ECHO XTHORACIC,NEHEMIAS ANOM,COMPLETE [facility] ECHO CONGENITAL W/CONTRAST [facility] ECHO CONGENITAL W/O CONTRAST [facility] DOPPLER ECHO PULSED, COMPLETE [facility] DOPPLER ECHO COLOR FLOW VELOCITY MAP [address] [facility] [address] [facility] STATISTIC IV PUSH SINGL E INITIAL SUBSTANCE UT DOPPLER ECHO PULSED, COMPLETE UT DOPPLER ECHO COLOR FLOW VELOCITY MAP UT ECHO XTHORACIC,NEHEMIAS ANOM,COMPLETE UT ECHO CONGENITAL W/O CONTRAST HC DOPPLER ECHO PULSED, [place] [address] HC DOPPLER ECHO COLOR FLOW V ELOCITY MAP HC STATISTIC IV PUSH SINGLE INITIAL SUBSTANCE HC ECHO CONGENITAL ANOM W/CONTRAST HC ECHO CONGENITAL ANOM W/O CONTRAST Referral ID Status Reason Start Date Expiration Date Visits V isits Requested Authorized [id number] Pending 02/06/2022 02/06/2023 1 1 Review V Testing (Routine) - Closed Specialty Diagnoses / Procedures Referred By Contact Refer red To Contact Diagnoses 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) Chest pain, unspecified type Single ventricle with heterotaxia syndrome Cordell Juarez MD Procedures Cardiopulmonary Stress Test - Adult [facility]0 [place] [address] Referral ID Status Reason Start Date Expiration Date Visits Requ ested Visits Authorized [id number] Closed 02/06/2022 02/06/2023 1 1 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 Juarez in 6 months with an ECHO and EKG prior Reason for Visit Reason Comments Follow Up 21 year old male with 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) Chest pain, unspecified type Single ventricle with heterotaxia syndrome Cordell Juarez MD [address] [facility] [address] [place] [address] Referral ID Status Reason Start Date Expiration Date Visits V isits Requested Authorized [id number] Pending 09/28/2021 09/28/2022 1 1 Review Encounter Details Date Type Department Care Team Description 02/06/2022 Office Visit [facility] Cordell Juarez Doub le-outlet right ventricle with ventricular septal defect; Heart Clinic D-TGA (dextro-transposition of great art eries); [address] [place] [address] [address] [facility] Chest pain, unspecified type ; [place], [place] [address] [place] [address] [place], [place] [phone] (Wo rk) Social History Tobacco Use Types Packs/Day Years [...] Pulse 83 02/06/2022 3:28 PM CDT Temperature - - Respiratory Rate - - Oxygen Saturation 94% 02/06/2022 3:28 PM CDT Inhaled Oxygen Concentration - - Weight 70.1 kg (154 lb 9.6 oz) 02/06/2022 3:28 PM CDT Height 166.4 cm (5' 5.51) 02/06/2022 3:28 PM CDT Body Mass Index 25.33 02/06/2022 3:28 PM CDT documented in this encounter Patient Instructions Patient InstructionsBarb Worley RN - 02/06/2022 3:00 PM CDT You were seen today in the Adult Congenital and Cardiovascular Genetics Clinic at the [facility]. Cardiology Providers you saw during your visit: Cordell Juarez MD Diagnosis: d- TGA Results: Cordell Juarez MD reviewed the results of your cardiac MRI/MRA and labs testing today in clinic. Recommendations: Continue to eat a heart healthy, low salt diet. Continue to get 20-30 minutes of aerobic activity, 4-5 days per week. Examples of aerobic activity include walking, running, swimming, cycling, etc. Continue to observe good oral hygiene, with regular dental visits. Complete a cardiopulmonary stress test SBE prophylaxis: Yes__X__ No____ Lifelong Bacterial Endocarditis Prophylaxis: YES____ NO____ If YES is checked, follow the recommendations outlined below: Take antibiotic(s) prior to recommended dental procedures and procedures on the respiratory tract orwith infected skin, muscle or bones. SBE prophylaxis is not needed for routine GI and procedures (ie. Colonoscopy or vaginal delivery) Observe good oral hygiene daily, as advised by your dentist. Get regular professional dental care. Keep cuts clean. Infections should be treated promptly. Symptoms of Infective Endocarditis could include: fever lasting more than 4-5 days or a recurrent fever that initially resolves but returns within 1-2 days) Exercise restrictions: Yes__X__ No____ If yes, list restrictions: Must be allowed to rest if fatigued or SOB Work restrictions: Yes____ No_X___ If yes, list restrictions: FASTING CHOLESTEROL was checked in the last 5 years YES_X__ NO___ (2019) Continue to eat a heart healthy, low salt diet. ____ Fasting lipid panel order today ____ No changes in medications ____ I recommend the following changes in your cholesterol medications.: ____ Please follow up for cholesterol screening at your primary care physician Follow-up: Follow up with Dr. Juarez in 6 months with and ECHO and EKG prior. If you have questions or concerns please contact us at: Barb Worley, MPH, RN, BSN Florinda Robb (Scheduling) Nurse Night Club Manager Clinic Bookkeeping Clerk Adult Congenital and CV Genetics Adult Congenital and CV Genetic [facility] (P) [phone] (P) [phone] [email or web address] (F) [phone] For after hours urgent needs, call [phone] and ask to speak to the Adult Congenital Physician workers compensation analyst. Mention Job Code 0401. For emergencies call 911. [facility] Heart [facility] Mail Code [id number] [address] [place] [address] documented in this encounter Nursing Notes Pipe Benoit - 02/06/2022 3:00 PM CDT Chief Complaint Patient presents with ??? Follow Up 21 year old male with history of double outlet right ventricle, left ventricular hypoplasia, d-transposition of the great vessels and pulmonary stenosis, s/p Fontan. Vitals were taken and medications reconciled. Pipe Benoit, EMT 3:31 PM documented in this encounter Plan of Treatment Upcoming Encounters Date Type Specialty Care Team Description 07/27/2022 Ancillary Procedure Cardiology Cordell Juarez MD [facility] [address] (Wo lucio) 07/27/2022 Office Visit Cardiology Cordell Juarez MD [address] [facility] [place], [place] [address] (Wo rk) Scheduled Orders Name Type Priority Associated Diagnoses Order S chedule Echo Congenital Echocardiography Routine Double-outlet right E xpected: Adult ventricle with 08/09/2022 ventricular septal (Approxim ate), defect Expires: D-TGA 02/06/2023 (dextro-transposition of great arterie s) Chest pain, unspecified type Single ventricle with heterotaxia syndrome Scheduled Referrals Name Type Priority Associated Diagnoses Order S chedule Follow-Up with Referral Routine: Next Double-outlet right Expec julia: Cardiology ADULT available opening ventricle with 07/19 CONGENITAL AND CV ventricular septal (Mona roximate), GENETICS defect Expires: D-TGA 02/06/2023 (dextro-transpositio n of great arter ies) Chest pain, unspecified type Single ventricle with heterotaxia syndrome documented as of this encounter Results CARDIOPULMONARY STRESS TEST - [...] VO2MAX 42.4 Max 29,583 CARPULSTRPH1 3 mins [id number] 0 sec CARPULSTRPH1 87 bpm CARPULBPPH1 133/83 mmHg CARPULSTRPH1 95 % SpO2 CARPULSTRPH2 6 mins [id number] 0 sec CARPULSTRPH2 112 bpm CARPULBPPH2 143/77 mmHg CARPULSTRPH2 93 % SpO2 CARPULSTRPH3 9 mins [id number] 0 sec CARPULSTRPH3 130 bpm CARPULBPPH3 161/82 mmHg CARPULSTRPH3 91 % SpO2 CARPULSTRPH4 12 mins [id number] 0 sec CARPULSTRPH4 167 bpm CARPULBPPH4 171/72 mmHg CARPULSTRPH4 91 % SpO2 CARPULSTRPH5 13 mins [id number] 0 sec CARPULSTRPH5 173 bpm CARPULSTRPH5 90 % SpO2 CARPULSTRPB1 1 mins [id number] 0 sec CARPULSTRPHB1 154 bpm CARPULBPPHB1 110/61 mmHg CARPULSTRPHB1 90 % SpO2 CARPULSTRPHB2 3 mins [id number] 0 sec CARPULSTRPHB2 102 bpm CARPULBPPHB2 159/108 mmHg CARPULSTRPHB2 93 % SpO2 CARPULSTRPHB3 5 mins [id number] 0 sec CARPULSTRPHB3 108 bpm CARPULBPPHB3 139/98 mmHg CARPULSTRPHB3 92 % SpO2 Max 31.92 ml/kg/m in Predicted 42.40 ml/kg/m in Percent 75 % RER 1.12 VE/VCO2 [place] 28.33 CARPULANEROBICTHRES 31.20 ml/kg/m in CARPULANAEROBICTHRESPERDICTED 74.0 [...] heterotaxia syndro me Other specified congenital anomalies Double-outlet right ventricle with ventr icular septal [...] documented as of this encounter Care Teams Agriculture Laborer Relationship Specialty Start Date End Date Magda Winchester, PCP - General Family Medicine Magnus Zayas, DO Assigned PCP 11/20/[address] [place] [address] [address] [place] [address] documented as of this encounter
--- OUTSIDE RECORDS SUMMARY | 2022-04-10 09:51 | XMS_ITS | Encounter Summary ---
:2000 Author Organization [place] Address [address] [place] [address] Care Team Providers Name Role Phone Magnus Zayas DO Unavailable [phone] Magda Winchester MD Primary Care Provider Encounter Details Date Type Department Care Team Description 11/09/2021 Travel Social History Tobacco Use Types Packs/Day [...] Ancillary Procedure Cardiology Cordell Juarez MD [address] [facility] [address] [place], [place] [id number] (Wo rk) 07/27/2022 Office Visit Cardiology Cordell Juarez MD [address] [address] [place], [place] [address] (Wo rk) documented as of this encounter Visit Diagnoses Not on filedocumented in this encounter Additional Health Concerns Assessment Noted Time PHQ-9 Depression Total Score: 10 04/01/2019 9:14 AM CD T documented as of this encounter Care Teams Natural Gas Basis Trader Relationship Specialty Start Date End Date Magda Winchester, PCP - General Family Medicine Magnus Zayas, DO Assigned PCP 11/20/[address] [place] [address] [address] [place], [place] [address] documented as of this encounter
--- OUTSIDE RECORDS SUMMARY | 2022-04-10 09:51 | XMS_ITS | Encounter Summary ---
:2000 Author Organization [place] Address [address] [facility] 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) Chest pain, unspecified type Single ventricle with heterotaxia syndrome Cordell Juarez MD Procedures MRI Cardiac w/contrast and flow [address] [facility] [place], [place] [address] Referral ID Status Reason Start Date Expiration Date Visits Requ ested Visits Authorized [id number] Closed 09/28/2021 09/28/2022 1 1 Reason for Visit Diagnostic Imaging MRI (Routine) - Closed Specialty Diagnoses / Procedures Referred By Contact Refer red To Contact Diagnoses 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) Chest pain, unspecified type Single ventricle with heterotaxia syndrome Cordell Juarez MD Procedures MRI Cardiac w/contrast and flow [address] [address] [place], [place] [address] Referral ID Status Reason Start Date Expiration Date Visits Requ ested Visits Authorized [id number] Closed 09/28/2021 09/28/2022 1 1 Encounter Details Date Type Department Care Team Description 11/10/2021 Hospital Encounter [facility] Cordell Juarez , 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 documented as of this encounter Medications at Time of Discharge [...] 07/27/2022 Ancillary Procedure Cardiology Cordell Juarez MD [address] [place] [id number] (Wo rk) 07/27/2022 Office Visit Cardiology Cordell Juarez MD [address] [place] [address] [address] (Wo rk) documented as of this encounter Procedures Procedure Name Priority Date/Time Associated Diagnosis Comme nts MR CARDIAC W Routine 11/10/2021 11:53 AM Double-outlet right R esults for this CONTRAST W FLOW CDT ventricle with procedure are in QUANT ventricular septal the resul ts defect section. D-TGA (dextro-transpositio n of great arter ies) Chest pain, unspecified type Single ventricle with heterotaxia syndrome documented in this encounter Results MRI Cardiac w/contrast and flow (11/10/2021 11:53 AM CDT) Anatomical Region Laterality Modality Cardio, SUBRAD MR BODY, UMP MR CHEST Mag netic Resonance Specimen (Source) Anatomical Collection Method Collection Time Re ceived Time Location / / Volume Laterality 11/10/2021 10:59 AM CDT Narrative 11/10/2021 1:26 PM CDT ? [facility] ? CMR Report ??MRN: ?[id number] ?Name: ? RENÉ, LUKE L ?: ?2000-0 8-16 ?Scan Date: ?? 2021-11-10 10:59:57 ? Electronically signed by Patrizia Panda 13:26:22 SUMMARY Clinical history: 21-year-old man with d ouble outlet right ventricle and d-TGA. Post Fortino and extracardiac Fontan operations. Post device closure o f Fontan fenestration. Comparison CMR: May 2019 SITUS: Solitus CAVAE: Bilateral SVC with each connected to the pulmonary artery via a Fortino anastomosis. IVC is connected to the right pulmonary artery through a extracardiac Fontan. Susceptibility artifact seen from previous device closure of Fontan fenestration. PULMONARY VEINS: Two right and two left pulmonary veins drain into the left atrium unobstructed. ATRIA: Large interatrial communication. The atrial sizes are normal. ATRIOVENTRICULAR CONNECTION: Concordant. There is mild tricuspid and trivial mitral regurgitation VENTRICLES: D-loop ventricles with levoc ardia. A large basal and anterior interventricular communication is present with septal flattening mid an d distally. The right ventricle is mildly hypertrophied and mildly dilated with normal systolic function. T he left ventricular function is normal. VENTRICULOARTERIAL CONNECTION: No aortic regurgitation. AORTA AND PULMONARY ARTERY: ??d-transpos ition of the great arteries with a right-sided aortic arch is demonstrated with mirror image cervical branching pattern. No evidence of patent ductus arteriosus, coarctation, or aortopulmonary collatera l arteries. ??The branch pulmonary arteries are patent. CONCLUSIONS: 1. Double outlet right ventricle with tr ansposition of the great arteries (d-TGA). 2. Widely patent Fortino and Fontan anasto dyan. 3. Normal biventricular function. No significant changes when compared to study from May 2019. CORE EXAM MEASUREMENTS -------- ?VOLUMETRIC ANALYSIS ? . . ? LV ?? Refer ence ?? RV ?? Reference ?? +-----+ +------+ +- -----+ + EDV ml ? 61 ??(126-2 08) ??112 ??(127-227) ? ml/m^2 ? 37 ??(68-10 3) ? 68 ??(68-114) ?? ESV ml ? 25 ??(35-80 ) ? 45 ??(38-98) ? ml/m^2 ? 15 ??(19-41 ) ? 27 ??(21-50) ?? CO ?? L/min ? 1.99 ? 3.62 ? L/min/m^2 1.20 ? 2.19 ? SV ?? ml ? 37 ??(81-1 37) ? 67 ??(74-143) ? ml/m^2 ? 22 ??(44-68 ) ? 41 ??(40-72) ?? EF ?? % ? 60 ??(57-7 4) ? 60 ??(48-74) ?? '-----+ +------+ +- -----+ ' ?CARDIAC OUTPUT HR: ??54 BPM SCAN INFO GENERAL -------- ?CONTRAST AGENT ?TYPE: ??Gadavist ?GD CONCENTRATION: ??0.5 M ?VOLUME ADMINISTERED: ??7.5 m l ?DOSAGE: ??0.06 mmol/kg ?VITALS ?HEIGHT: ??64.00 in ?HEIGHT: ??162.56 cm ?WEIGHT: ??134.00 lbs ?WEIGHT: ??60.78 kgs ?BSA: ??1.65 m^2 ?PULSE SEQUENCES ?SSFP cine, 2D LGE segmented, 2D LGE single-shot, 3D LGE, HASTE morphology, Bright-blood SSFP ?morphology ?SETUP ?REFERRING PHYSICIAN: ??CORDELL JUAREZ ?ATTENDING PHYSICIAN: ??CORDELL JUAREZ BILLING -------- ?CPT Codes ?ICD10 Codes ?Q20.1, Q20.3, R07.9, Q20.4 Report generated by gil Tena of [employer] Procedure Note Patrizia Panda MD - 11/10/2021Klaus toney of this note might be different from the original. [facility] CMR Report Name: JUDE BILLS : 2000 Scan Date: 2021-11-10 10:59:57 Electronically signed by Wesasha Patrizia H 13:26:22 SUMMARY Clinical history: 21-year-old man with d ouble outlet right ventricle and d-TGA. Post Fortino and extracardiac Fontan operations. Post device closure o f Fontan fenestration. Comparison CMR: May 2019 SITUS: Solitus CAVAE: Bilateral SVC with each connected to the pulmonary artery via a Fortino anastomosis. IVC is connected to the right pulmonary artery through a extracardiac Fontan. Susceptibility artifact seen from previous device closure of Fontan fenestration. PULMONARY VEINS: Two right and two left pulmonary veins drain into the left atrium unobstructed. ATRIA: Large interatrial communication. The atrial sizes are normal. ATRIOVENTRICULAR CONNECTION: Concordant. There is mild tricuspid and trivial mitral regurgitation VENTRICLES: D-loop ventricles with levoc ardia.A large basal and anterior interventricular communication is present with septal flattening mid an d distally. The right ventricle is mildly hypertrophied and mildly dilated with normal systolic function. T he left ventricular function is normal. VENTRICULOARTERIAL CONNECTION: No aortic regurgitation. AORTA AND PULMONARY ARTERY: d-transposit ion of the great arteries with a right- sided aortic arch is demonstrated with mirror image cervical branching pattern. No evidence of patent ductus arteriosus, coarctation, or aortopulmonary collatera l arteries. The branch pulmonary arteries are patent. CONCLUSIONS: 1. Double outlet right ventricle with tr ansposition of the great arteries (d-TGA). 2. Widely patent Fortino and Fontan anasto dyan. 3. Normal biventricular function. No significant changes when compared to study from May 2019. CORE EXAM MEASUREMENTS -------- VOLUMETRIC ANALYSIS ------- . . LV Reference RV Reference +-----+ +------+ +- -----+ + EDV ml 61 (126-208) 112 (127 -227) ml/m^2 37 (68-103) 68 (68-11 4) ESV ml 25 (35-80) 45 (38-98) ml/m^2 15 (19-41) 27 (21-50) CO L/min 1.99 3.62 L/min/m^2 1.20 2.19 SV ml 37 (81-137) 67 (74-143 ) ml/m^2 22 (44-68) 41 (40-72) EF % 60 (57-74) 60 (48-74) '-----+ +------+ +- -----+ ' CARDIAC OUTPUT HR: 54 BPM SCAN INFO GENERAL -------- CONTRAST AGENT ------- TYPE: Gadavist GD CONCENTRATION: 0.5 M VOLUME ADMINISTERED: 7.5 ml DOSAGE: 0.06 mmol/kg VITALS ------- HEIGHT: 64.00 in HEIGHT: 162.56 cm WEIGHT: 134.00 lbs WEIGHT: 60.78 kgs BSA: 1.65 m^2 PULSE SEQUENCES ------- SSFP cine, 2D LGE segmented, 2D LGE sin gle-shot, 3D LGE, HASTE morphology, Bright-blood SSFP morphology SETUP ------- REFERRING PHYSICIAN: CORDELL JUAREZ ATTENDING PHYSICIAN: CORDLEL SANCHEZ -------- CPT Codes ICD10 Codes Q20.1, Q20.3, R07.9, Q20.4 Report generated by gil Tena of [facility] [employer] Cordell Juarez MD IMG MRI ORDERABLES documented [...] Date Dose Rate Site gadobutrol (GADAVIST) injection Given 11/10/2021 11:55 AM CDT 7. 5 mLs 7.5 mL 7.5 mL, Intravenous, ONCE, On Sat11/10/21 at 1200, For 1 dose documented in this encounter Additional Health Concerns Assessment Noted Time PHQ-9 Depression Total Score: 10 04/01/2019 9:14 AM CD T documented as of this encounter Care Teams Counter Manager Relationship Specialty Start Date End Date Magda Winchester, PCP - General Family Medicine Magnus Zayas, DO Assigned PCP 11/20/[address] [place] [id number] documented as of this encounter
--- OUTSIDE RECORDS SUMMARY | 2022-04-10 09:51 | XMS_ITS | Encounter Summary ---
:2000 Author Organization [place] Address [address] [facility] 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) Chest pain, unspecified type Single ventricle with heterotaxia syndrome Cordell Juarez MD Procedures Leadless smoke room operator 3 to 7 Days ZZHC EXT ECG > 48HR TO 21 DAY RCRD W/CONECT INTL RCRD ZZC EXT ECG > 48HR TO 21 DAY REVIEW AND INTERPRETATN FL EXT ECG > 48HR TO 21 DAY RCRD W/CONECT INTL RCRD [address] [facility] [address] [place] EXT ECG > 48HR TO 21 DAY REVIEW AND INTERPRETATN HC EXT ECG > 48HR TO 21 DAY RCRD W/[place] [address] Referral ID Status Reason Start Date Expiration Date Visits V isits Requested Authorized [id number] Pending 09/28/2021 09/28/2022 1 1 Review Encounter Details Date Type Department Care Team Description 10/02/2021 Ancillary [facility] [place] Cordell Juarez Doub le-outlet right ventricle with ventricular septal defect; Procedure [facility] DUPREE DAldoTGA (dextro-transposition of great art eries); [address] [place] pain, unspecified type; [place] [address] Single ventricle with heterotaxia [place] [address] [place] [phone] Social History Tobacco Use Types Packs/Day Years [...] in contact with No / Unsu re 10/02/2021 1:23 PM CDT someone who was confirmed or suspected to have Coronavirus/COVID-19? documented as of this encounter Plan of Treatment Upcoming Encounters Date Type Specialty Care Team Description 07/27/2022 Ancillary Procedure Cardiology Cordell Juarez MD [facility] [address] [address] (Wo rk) 07/27/2022 Office Visit Cardiology Cordell Juarez MD [address] [place] [phone] (Wo rk) documented as of this encounter Procedures Procedure Name Priority Date/Time Associated Diagnosis Comme nts LEADLESS SUPERVISOR LINE DEPARTMENT Routine 10/02/2021 2:37 PM Double-outlet right APPLICATION AND CDT ventricle with INTERPRETATION 3 TO 7 DAY ventricular sep osvaldo defect D-TGA (dextro-transposition of great arterie s) Chest pain, unspecified type Single ventricle with heterotaxia syndrome documented in this encounter Results LEADLESS SUPERVISOR LINE DEPARTMENT APPLICATION AND INTERPRETATION 3 TO 7 DAY (10/02/2021 2:37 PM CDT) Anatomical Region Laterality Modality Other Specimen (Source) Anatomical Location Collection Method / Collectio n Time Received Time / Laterality Volume Narrative This result has an attachment that is no t available. Cordell Juarez MD CV CARDIAC SERVICES ORDERABL [...] documented as of this encounter Care Teams Corner Trimmer Operator Relationship Specialty Start Date End Date Magda Winchester, PCP - General Family Medicine Magnus Zayas, Assigned PCP 11/20/[address] [place] [address] [address] [place] [address] documented as of this encounter
--- OUTSIDE RECORDS SUMMARY | 2022-04-10 09:51 | XMS_ITS | Encounter Summary ---
:2000 Author Organization [place] Address [address] [facility] [address] Care Team Providers Name Role Phone Magnus Zayas DO Unavailable [phone] Magda Winchseter MD Primary Care Provider Encounter Details Date Type Department Care Team Description 10/02/2021 Travel Social History Tobacco Use Types Packs/Day [...] Ancillary Procedure Cardiology Cordell Juarez MD [address] [facility] [address] [place], [place] [phone] (Wo rk) 07/27/2022 Office Visit Cardiology Cordell Juarez MD [address] [place] [address] [place], [place] [phone] (Wo rk) documented as of this encounter Visit Diagnoses Not on filedocumented in this encounter Additional Health Concerns Assessment Noted Time PHQ-9 Depression Total Score: 10 04/01/2019 9:14 AM CD T documented as of this encounter Care Teams Parts Counter Sales Person Relationship Specialty Start Date End Date Magda Winchester, PCP - General Family Medicine Magnus Zayas, DO Assigned PCP 11/20/[address] [place] [address] [address] [place], [place] [phone] documented as of this encounter
--- OUTSIDE RECORDS SUMMARY | 2022-04-10 09:51 | XMS_ITS | Encounter Summary ---
:2000 Author Organization [place] Address [address] [facility] [place] [address] Care Team Providers Name Role Phone Magnus Zayas DO Unavailable [phone] Magda Winchester MD Primary Care Provider Encounter Details Date Type Department Care Team Description 01/30/2022 Travel Social History Tobacco Use Types Packs/Day [...] in contact with No / Unsu re 01/30/2022 8:32 AM CDT someone who was confirmed or suspected to have Coronavirus/COVID-19? documented as of this encounter Plan of Treatment Upcoming Encounters Date Type Specialty Care Team Description 07/27/2022 Ancillary Procedure Cardiology Cordell Juarez MD [address] [facility] [address] [place], [place] [address] (Wo rk) 07/27/2022 Office Visit Cardiology Cordell Juarez MD [address] [place] [address] [place], [place] [phone] (Wo rk) documented as of this encounter Visit Diagnoses Not on filedocumented in this encounter Additional Health Concerns Assessment Noted Time PHQ-9 Depression Total Score: 10 04/01/2019 9:14 AM CD T documented as of this encounter Care Teams Finance Accounting Internship Relationship Specialty Start Date End Date Magda Winchester, PCP - General Family Medicine Magnus Zayas, DO Assigned PCP 11/20/[address] [place] [address] [address] [place], [place] [phone] documented as of this encounter
--- OUTSIDE RECORDS SUMMARY | 2022-04-10 09:51 | XMS_ITS | Encounter Summary ---
:2000 Author Organization [facility] Address [address] 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) Chest pain, unspecified type Single ventricle with heterotaxia syndrome Cordell Herrera MD Procedures Leadless food processor 3 to 7 Days ZZHC EXT ECG > 48HR TO 21 DAY RCRD W/CONECT INTL RCRD ZZC EXT ECG > 48HR TO 21 DAY REVIEW AND INTERPRETATN NE EXT ECG > 48HR TO 21 DAY RCRD W/CONECT INTL RCRD [address] [facility] [address] NE EXT ECG > 48HR TO 21 DAY REVIEW AND INTERPRETATN HC EXT ECG > 48HR TO 21 DAY RCRD W/[place] [address] Referral ID Status Reason Start Date Expiration Date Visits V isits Requested Authorized [id number] Pending 09/28/2021 09/28/2022 1 1 Review Diagnostic Imaging MRI (Routine) - Closed Specialty Diagnoses / Procedures Referred By Contact Refer red To Contact Diagnoses 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) Chest pain, unspecified type Single ventricle with heterotaxia syndrome Cordell Herrera MD Procedures MR Abdomen w Contrast [address] [place] [id number] Referral ID Status Reason Start Date Expiration Date Visits Requ ested Visits Authorized [id number] Closed 09/28/2021 09/28/2022 1 1 Diagnostic Imaging MRI (Routine) - Closed Specialty Diagnoses / Procedures Referred By Contact Refer red To Contact Diagnoses 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) Chest pain, unspecified type Single ventricle with heterotaxia syndrome Cordell Herrera MD Procedures MRA Chest with Contrast [address] [place] [address] 4 Referral ID Status Reason Start Date Expiration Date Visits Requ ested Visits Authorized [id number] Closed 09/28/2021 09/28/2022 1 1 Diagnostic Imaging MRI (Routine) - Closed Specialty Diagnoses / Procedures Referred By Contact Refer red To Contact Diagnoses 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) Chest pain, unspecified type Single ventricle with heterotaxia syndrome Cordell Herrera MD Procedures MRI Cardiac w/contrast and flow [address] [address] Referral ID Status Reason Start Date Expiration Date Visits Requ ested Visits Authorized [id number] Closed 09/28/2021 09/28/2022 1 1 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 Herrera once cardiac MRI /MRA, abdominal MRI and 1 week zio complete. Reason for Visit Reason Comments Follow Up Return Congenital Heart- 21 year old male with history of double outlet right ventricle, left ventri cular hypoplasia, d-transposition of the great vessels and pulmonary stenos is, s/p Fontan. Encounter Details Date Type Department Care Team Description 09/26/2021 Office Visit [facility] Cordell Herrera Doub le-outlet right ventricle with ventricular septal defect; Heart Clinic DAldoTGA (dextro-transposition of great art eries); [address] [place], [place] [address] Chest pain, unspecified type ; [place], [place] [address] [place] [address] [place], [place] [phone] (Wo rk) Social History Tobacco Use Types Packs/Day Years Used Date Smoking Tobacco: Never Smokeless Tobacco: Never Comments: none at home Alcohol Use Standard Drinks/Week Comments No 0 (1 standard drink = 0.6 oz pure alcoho l) Sex Assigned at Date Recorded Male 03/09/2019 1:21 PM CDT COVID-19 Exposure Response Date Recorded In the last 10 days, have you been in contact Unable to asse ss 10/11/2021 2:58 PM CDT with someone who was confirmed or suspected to have Coronavirus/COVID-19? documented as of this encounter Last Filed Vital Signs Vital Sign Reading Time Taken Comments Blood Pressure 95/61 09/26/2021 2:17 PM CDT Pulse 74 09/26/2021 2:17 PM CDT Temperature - - Respiratory Rate - - Oxygen Saturation 92% 09/26/2021 2:17 PM CDT Inhaled Oxygen Concentration - - Weight 60.9 kg (134 lb 3.2 oz) 09/26/2021 2:17 PM CDT Height 163.5 cm (5' 4.37) 09/26/2021 2:17 PM CDT Body Mass Index 22.77 09/26/2021 2:17 PM CDT documented in this encounter Patient Instructions Patient InstructionsBarb Worley RN - 09/28/2021 10:35 AM CDT You were seen today in the Adult Congenital and Cardiovascular Genetics Clinic at the [facility]. Cardiology Providers you saw during your visit: Cordell Herrera MD Diagnosis: [facility] Results: Cordell Herrera MD reviewed the results of your CPX, ECHO and labs testing today in clinic. Recommendations: Continue to eat a heart healthy, low salt diet. Continue to get 20-30 minutes of aerobic activity, 4-5 days per week. Examples of aerobic activity include walking, running, swimming, cycling, etc. Continue to observe good oral hygiene, with regular dental visits. Refilled sildenafil and omeprazole Follow up with your wheel shop supervisor, once complete we will send out a zio monitor for you to wear for 1 week SBE prophylaxis: Yes__X__ No____ Lifelong Bacterial Endocarditis [...] screening at your primary care physician Follow-up: We will reach out to schedule a cardiac and abdominal MRI/MRA, and a follow up appointment with Dr. Herrera in about 6 months. If you have questions or concerns please contact us at: Barb Worley, MPH, RN, BSN Florinda Robb (Scheduling) Nurse [facility] Homogenizer Operator Adult Congenital and CV Genetics Adult Congenital and CV Genetic [facility] Heart [facility] (P) [phone] (P) [phone] [email or web address] (F) [phone] For after hours urgent needs, call [phone] and ask to speak to the Adult Congenital Physician process control technician. Mention Job Code 0401. For emergencies call 911. [facility] Mail Code [id number] [place] [phone] documented in this encounter Progress Notes Cordell Herrera MD - 09/26/2021 2:30 PM CDT Adult Congenital Cardiology Visit Patient: Jude Merritt Date of : 2000 Age: [age] year old Date of Visit: Sep 26, 2021 PCP: Magda Winchester MD Dear Dr. Zayas, I had the pleasure of seeing your patient, Jude Merritt, in the [facility] clinic at the [facility] on Sep 26, 2021. 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 He underwent a central shunt, followed by a Fortino procedure and [facility]. He had catheter closure of his Fontan fenestration at the [facility] in January 2007. Jude has a history of atrial atrial tachycardia that improved onmetoprolol but subsequently developed fatigue and exercise intolerance that improved with weaning off of metoprolol. He has intermittent chest pain, that may be ectopy or non cardiac pain, and history of LE edema that is improved on low dose diuretic, as well as exercise intolerance that improved on low dose lasix, sildenafil and omeprazole. He is not on any anticoagulation due to multiple episodes of bleeding (most recently severe psoas hemorrhage in 2019). Jude sees the dentist regularly and uses antibiotic prophylaxis for SBE. Jude was last seen in clinic on 03/10/21 at which time he was doing quite well. He reports that sincethat time he has had a change in his general symptoms. Over the past few months, he reports an increase in fatigue which has led to decrease in exercise tolerance. In addition, he has had increased symptoms of depression and was started on Zoloft, which has been up-titraed from 25 to 100 mg. He had COVID-19 approximately 2 months ago, but reports that his symptoms were very tolerable. He also notes that he ran out of his prescription for sildenafil around that time as well and thus has not been taking this medication. He reports compliance with the remainder of his regimen, including digoxin, furose mide, and spironolactone. He otherwise denies any chest pain, shortness of breath, clubbing/blue tinge of his digits, ankle edema, sustained arrhythmias, abdominal distension, diarrhea or episodes of bleeding. 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 He plans to pursue prerequisites for an RN degree this spring/summer. He is no longer with his girlfriend. 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 Seen in ED June 2019 with influenza Admitted December 2019 with herpes stomatitis There have been no significant illnesses, injuries, or hospitalizations reported since he last clinic visit. He has a current medication list which includes the following prescription(s): digoxin, furosemide, montelukast, sertraline, spironolactone, trazodone, amoxicillin, omeprazole, and sildenafil. Heis allergic to seasonal allergies. Current Outpatient Medications Medication ??? digoxin (LANOXIN) 250 MCG tablet ??? furosemide (LASIX) 20 MG tablet ??? montelukast (SINGULAIR) 10 MG tablet ??? sertraline (ZOLOFT) 25 MG tablet ??? spironolactone (ALDACTONE) 25 MG tablet ??? traZODone (DESYREL) 50 MG tablet ??? amoxicillin (AMOXIL) 500 MG capsule ??? omeprazole (PRILOSEC) [address] capsule ??? sildenafil (REVATIO) 20 MG tablet No current facility-administered medications for this visit. Family History: Unknown, as Jude is adopted. Social history: Denies tobacco use, alcohol, or recreational drug use. 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 Living with parents at present. Review of Systems: A comprehensive review of systems was performed and is negative, except as noted in the HPI and PMH Physical exam: His height is 1.635 m (5' 4.37) and weight is 60.9 kg (134 lb 3.2 oz). His blood pressure is 95/61 and his pulse is 74. His oxygen saturation is 92%. His body mass index is 22.77 kg/m??. His body surface area is 1.66 meters squared. Jude is a well appearing man in no distress. There is no central or peripheral cyanosis. Pupils are equal and sclera are not jaundiced. There is no conjunctival injection or discharge. Lungs are clear to ausculation bilaterally with no wheezes, rales or rhonchi. There is no increased work of breathing. On auscultation, heart sounds are regular with normal S1 and a single S2. There Is a Grade 2 FAIZAN at the LUSB. Abdomen is soft and non-tender without masses or hepatomegaly. . Skin is without rashes, lesions, or significant bruising. Extremities are warm and well-perfused with no cyanosis, clubbing or edema. Peripheral pulses are normal and there is < 2 sec capillary refill. Patient is alert and oriented and moves all extremities equally with normal tone. 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 Previous device closure of Fontan fenestration. The Fontan fenestration device is in good position. There is laminar phasic color flow in the Fortino and Fontan shunt. The right ventricular function is qualitatively mildly depressed. Single plane right ventricular EF 43%. Upper mild tricuspid valve insufficiency.There is no diastolic runoff in the abdominal aorta. No pericardial effusion. Technical information: A complete two dimensional, spectral and color Doppler transthoracic echocardiogram is performed. The study quality is fair. Images are obtained from parasternal, apical, subcostal and suprasternal notch views. Prior echocardiogram available for comparison. ECG tracing shows regular rhythm. Segmental Anatomy: There is normal atrial arrangement. Absent left atrioventricular connection. Systemic and pulmonary veins: There is laminar phasic color flow in the Fortino shunt. Patient has undergone Fontan operation. The Fontan connection is widely patent with phasic laminar flow. Post device closure of Fontan fenestration. The Fontan fenestration device is in good position. Color flow demonstrates flow from two pulmonary veins entering the left atrium. Atria and atrial septum: The right and left atria are normal in size. No thrombus is visualized in the left atrium. No thrombus is visualized in the right atrium. There is laminar flow across the atrial level communication. Post atrial septectomy. Atrioventricular valves: The tricuspid valve is normal in appearance and motion. Upper mild (1-2+) tricuspid valve insufficiency. The mitral valve has normal structure, size, insertion and function. Ventricles and Ventricular Septum: Double outlet right ventricle. There is mild right ventricular enlargement. The right ventricular function is qualitatively mildly depressed. Single plane right ventricular EF 43 %. There is a large anterior malalignment ventricular septal defect. Outflow tracts: Complete transposition of the great arteries (D-TGA). The systemic outflow tract is unobstructed. Tricuspid aortic valve with normal appearance and motion. There is no aortic valve insufficiency. There is no aortic valve stenosis. Great arteries: There is unobstructed flow in both branch pulmonary arteries. There is unobstructed antegrade flow in the ascending, transverse arch, descending thoracic and abdominal aorta. There is no diastolic runoff in the abdominal aorta. Coronaries: The coronary arteries are not evaluated. Effusions, catheters, cannulas and leads: No pericardial effusion. Doppler Measurements & Calculations MV E max dhruv: 53.3 cm/sec Ao V2 max: 86.3 cm/sec MV A max dhruv: 31.8 cm/sec Ao max P.0 mmHg MV E/A: 1.7 LV V1 max: 63.0 cm/sec LV V1 max P.6 mmHg LV dP/dt: 699.0 mmHg/s asc Ao max dhruv: 72.2 cm/sec desc Ao max dhruv: 94.5 cm/sec asc Ao max P.1 mmHg desc Ao max P.6 mmHg CPX Results: 12:37 on a Raul Ramp Protocol. Peak VO2 29.5 (69% of predicted). RER 1.05 VE/VCO2 28.82 Mildly impaired HR and BP response. Mild restrictive lung defect. Overall cardiac limitation to exercise with % predicted VO2 decreased from 84% in 2020 Likely multifactorial - recent covid, off sildenafil. No other studies performed in clinic today. Reviewed prior Holter Monitor from 08/2020 showing rare PACs and PVCs with sinus rate variability from 35-155 bpm. Reviewed prior echocardiogram performed 08/2020 showing: Double outlet right ventricle, transposition of the great arteries (d-TGA) and a large anterior malalignment ventricular septal defect after fenestrated Fontan operation. Previous device closure of Fontan fenestration. The Fontan fenestration device is in good position. There is laminar phasic color flow in the Fortino and Fontan shunt. The right ventricle has normal contractility. Upper mild tricuspid valve insufficiency.There is no diastolic runoff in the abdominal aorta. No pericardial effusion. Impression: Jude is a 21 year old yo male s/p Fontan for heterotaxy, DORV, d-TGA, pulmonary stenosis and LV hypoplasia. He had device occlusion of his fenestration and has been bothered the last several years by palpitations and chest pain. He is currently more symptomatic than he has in the past but this may be as a result of his recent discontinuation of sildenafil and/or recent COVID infection. His echocardiogram was also significant for a right ventricular EF decrease to 43%. His labs showed normal hepatic and renal function, with no hypoproteinemia. He has good heart rate variability on Holter monitor, and acceptable exercise tolerance, although decreased from 2 years ago. Given his past hemorrhagic event s and colitis, he remains off warfarin and aspirin. Will continue to hold off on prophylactic anticoagulation at this time. ?? Recommendations: 1) Proceed with Cardiac/Liver MRI if possible. If unable to schedule in a reasonable amount of time will consider CT. Possible need to proceed with cardiac catheterization pending results. Further follow-up pending results of this study. 2) Restart sildenafil - consider reecho/restress after starting. 3) COVID Booster vaccination 4) No medication changes today Thank you for the opportunity to participate in Jude's care. Please do not hesitate to call with questions or concerns. Patient was seen and examined with the attending physician, Dr. Herrera, who is in agreement with the assessment and plan. Lynn Diaz MD Maternal Medicine Fellow 09/26/2021 4:18 PM I, Cordell Herrera MD, saw this patient with the fellow and agree with the findings and plan of care as documented in this note.I have reviewed this patient's history, examined the patient and reviewed relevant laboratory findings and diagnostic testing. I have discussed the plan of care with the patient at the time of this visit. A total of 30 minutes were spent in personal review of testing as noted above, review of documented history and interval events in chart, face to face visit with discussion of findings and plan, and documentation. Cordell Herrera M.D. Plating Stripper of Pediatrics Pediatric and Adult Congenital Cardiology [facility] Pediatric Cardiology Office [phone] Adult Congenital Cardiology Triage and Scheduling [phone] CC: Jude Merritt documented in this encounter Nursing Notes Km Lopez - 09/26/2021 2:30 PM CDT Chief Complaint Patient presents with ??? 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 Vitals were taken and medications reconciled. JEFFREY Meier 2:22 PM documented in this encounter Plan of Treatment Upcoming Encounters Date Type Specialty Care Team Description 07/27/2022 Ancillary Procedure Cardiology Cordell Herrera MD [address] [address] [place] [address] (Wo rk) 07/27/2022 Office Visit Cardiology Cordell Herrera MD [address] [address] [place] [address] (Wo rk) Scheduled Referrals Name Type Priority Associated Diagnoses Order S chedule Follow-Up with Referral Routine: Next Double-outlet right Expec julia: Cardiology ADULT available opening ventricle with 01/16 CONGENITAL AND CV ventricular septal (Mona roximate), GENETICS defect Expires: D-TGA 09/28/2022 (dextro-transpositio n of great arter ies) Chest pain, unspecified type Single ventricle with heterotaxia syndrome documented as of this encounter Procedures Procedure Name Priority Date/Time Associated Comments Diagnosis CBC WITH PLATELETS AND Routine 09/26/2021 10:25 Double-outlet right Results for this DIFFERENTIAL AM CDT ventricle with procedure are in ventricular septal the resul ts defect section. D-TGA (dextro-transpositi on of great arteries) IGG Routine 09/26/2021 10:25 Double-outlet right Resu lts for this AM CDT ventricle with procedure are in ventricular septal the resul ts defect section. D-TGA (dextro-transpositi on of great arteries) CBC WITH PLATELETS & Routine 09/26/2021 10:25 Double-outlet ri ght Results for this DIFFERENTIAL AM CDT ventricle with procedure are in ventricular septal the resul ts defect section. D-TGA (dextro-transpositi on of great arteries) TSH WITH FREE T4 Routine 09/26/2021 10:25 Double-outlet right Results for this REFLEX AM CDT ventricle with procedure are in ventricular septal the resul ts defect section. D-TGA (dextro-transpositi on of great arteries) T4 FREE Routine 09/26/2021 10:25 Double-outlet right Resu lts for this AM CDT ventricle with procedure are in ventricular septal the resul ts defect section. D-TGA (dextro-transpositi on of great arteries) INR Routine 09/26/2021 10:25 Double-outlet right Resu lts for this AM CDT ventricle with procedure are in ventricular septal the resul ts defect section. D-TGA (dextro-transpositi on of great arteries) COMPREHENSIVE Routine 09/26/2021 10:25 Double-outlet right Res ults for this METABOLIC PANEL AM CDT ventricle with procedure are in ventricular septal the resul ts defect section. D-TGA (dextro-transpositi on of great arteries) documented in this encounter Results MRA Chest with Contrast (11/10/2021 12:46 PM CDT) Anatomical Region Laterality Modality Chest, SUBRAD IR PROCEDURE, UMP MR MRA, RAD MR Magnetic Resonance Specimen (Source) Anatomical Collection Method Collection Time Re ceived Time Location / / Volume Laterality 11/10/2021 10:59 AM CDT Narrative 11/10/2021 1:26 PM CDT ? [facility] ? CMR Report ??MRN: ?[id number] ?Name: ? RENÉ, JUDE L ?: ?1999-0 8-16 ?Scan Date: ?? 2021-11-10 10:59:57 ? [...] Bright-blood SSFP ?morphology ?SETUP ?REFERRING PHYSICIAN: ??CORDELL HERRERA ?ATTENDING PHYSICIAN: ??CORDELL SANCHEZ -------- ?CPT Codes ?ICD10 Codes ?Q20.1, Q20.3, R07.9, Q20.4 Report generated by gil Tena of [employer] Procedure Note Patrizia Panda MD - 11/10/2021Klaus toney of this note might be different from the original. [facility] CMR Report Name: JUDE MERRITT : 2000 Scan Date: 2021-11-10 10:59:57 Electronically signed by Patrizia Panda 13:26:22 SUMMARY [...] SSFP morphology SETUP ------- REFERRING PHYSICIAN: CORDELL HERRERA ATTENDING PHYSICIAN: CORDELL HERRERA BILLING -------- CPT Codes ICD10 Codes Q20.1, Q20.3, R07.9, Q20.4 Report generated by gil Tena of [employer] Cordell Herrera MD IMG MRI ORDERABLES MRI Cardiac w/contrast and flow (11/10/2021 11:53 AM CDT) Anatomical Region Laterality Modality Cardio, SUBRAD MR BODY, UMP MR CHEST Mag netic Resonance Specimen (Source) Anatomical Collection Method Collection Time Re ceived Time Location / / Volume Laterality 11/10/2021 10:59 AM CDT Narrative 11/10/2021 1:26 PM CDT ? [facility] ? CMR Report ??MRN: ?[id number] ?Name: ? JUDE MERRITT ?: ?1999-0 8-16 ?Scan Date: ?? 2021-11-10 10:59:57 ? [...] Bright-blood SSFP ?morphology ?SETUP ?REFERRING PHYSICIAN: ??CORDELL HERRERA ?ATTENDING PHYSICIAN: ??CORDELL HERRERA BILLING -------- ?CPT Codes ?ICD10 Codes ?Q20.1, Q20.3, R07.9, Q20.4 Report generated by gil Tena of [employer] Procedure Note Patrizia Panda MD - 11/10/2021Formattin g of this note might be different from the original. [facility] CMR Report Name: JUDE MERRITT : 2000 Scan Date: 2021-11-10 10:59:57 Electronically signed by Patrizia Panda 13:26:22 SUMMARY [...] SSFP morphology SETUP ------- REFERRING PHYSICIAN: CORDELL HERRERA ATTENDING PHYSICIAN: CORDELL SANCHEZ -------- CPT Codes ICD10 Codes Q20.1, Q20.3, R07.9, Q20.4 Report generated by gil Tena of [employer] Cordell Herrera MD IMG MRI ORDERABLES MR Abdomen w Contrast (11/01/2021 5:19 PM [...] and I agree with the findings. YAEL LEMUS MD Narrative 11/02/2021 9:19 AM CDT MRCP [...] Unremarkab le. Ascites: None. Procedure Note Yael Lemus - 11/02/2021Formattin g of this note might [...] and I agree with the findings. 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 Cordell Herrera MD CV CARDIAC SERVICES ORDERABL ES T4 free (09/26/2021 10:25 AM CDT) P athologist Signature Free T4 1.09 0.76 - 1.46 09/26/2021 [facility] ng/dL 11:33 AM CDT Specimen Anatomical Collection Method / Collection Time Recei dipesh Time (Source) Location / Volume Laterality Blood STRUCTURE OF RIGHT Venipuncture / 09/26/2021 10:25 05/2022 UPPER LIMB / Unknown AM CDT 10:44 AM CDT Unknown Cordell Herrera MD LAB - BLOOD ORDERABLES Performing Organization Address City/State/ZIP Code Phon e Number [facility] [place] [address] Lab [address] [facility] [address] Building, Room 3-580 (ABNORMAL) CBC with platelets and differential (09/26/2021 10:25 AM CDT) [facility] gist Method Time Signature WBC Count 5.4 4.0 - 09/26/2021 [facility] 11.0 11:03 AM CDT 10e3/uL RBC Count 6.14 (H) 4.40 - 09/26/2021 [facility] 5.90 11:03 AM CDT 10e6/uL Hemoglobin 17.6 13.3 - 09/26/2021 [facility] 17.7 g/dL 11:03 AM CDT Hematocrit 52.0 40.0 - 09/26/2021 [facility] 53.0 % 11:03 AM CDT MCV 85 78 - 100 09/26/2021 [facility] fL 11:03 AM CDT MCH 28.7 26.5 - 09/26/2021 [facility] 33.0 pg 11:03 AM CDT MCHC 33.8 31.5 - 09/26/2021 [facility] 36.5 g/dL 11:03 AM CDT RDW 13.2 10.0 - 09/26/2021 [facility] 15.0 % 11:03 AM CDT Platelet Count 177 150 - 450 09/26/2021 [facility] 10e3/uL 11:03 AM CDT % Neutrophils 55 % 09/26/2021 [facility] 11:03 AM CDT % Lymphocytes 31 % 09/26/2021 [facility] 11:03 AM CDT % Monocytes 11 % 09/26/2021 [facility] 11:03 AM CDT % Eosinophils 2 % 09/26/2021 [facility] 11:03 AM CDT % Basophils 1 % 09/26/2021 [facility] 11:03 AM CDT % Immature 0 % 09/26/2021 [facility] Granulocytes 11:03 AM CDT NRBCs per 100 0 <1 /100 09/26/2021 [facility] WBC 11:03 AM CDT Absolute 3.0 1.6 - 8.3 09/26/2021 [facility] Neutrophils 10e3/uL 11:03 AM CDT Absolute 1.7 0.8 - 5.3 09/26/2021 [facility] Lymphocytes 10e3/uL 11:03 AM CDT Absolute 0.6 0.0 - 1.3 09/26/2021 [facility] Monocytes 10e3/uL 11:03 AM CDT Absolute 0.1 0.0 - 0.7 09/26/2021 [facility] Eosinophils 10e3/uL 11:03 AM CDT Absolute 0.0 0.0 - 0.2 09/26/2021 [facility] Basophils 10e3/uL 11:03 AM CDT Absolute 0.0 <=0.4 09/26/2021 [facility] Immature 10e3/uL 11:03 AM CDT Granulocytes Absolute NRBCs 0.0 10e3/uL 09/26/2021 [facility] 11:03 AM CDT Specimen Anatomical Collection Method / Collection Time Recei dipesh Time (Source) Location / Volume Laterality Blood STRUCTURE OF RIGHT Venipuncture / 09/26/2021 10:25 05/2022 UPPER LIMB / Unknown AM CDT 10:42 AM CDT Unknown Cordell Herrera MD LAB - BLOOD ORDERABLES Performing Organization Address City/State/ZIP Code Ph[place] [address] [phone] Lab [facility], Room 3-580 (ABNORMAL) TSH with free T4 reflex (09/26/2021 10:25 AM CDT) P athologist Signature TSH 5.17 (H) 0.40 - 4.00 09/26/2021 [facility] mU/L 11:20 AM CDT Specimen Anatomical Collection Method / Collection Time Recei dipesh Time (Source) Location / Volume Laterality Blood STRUCTURE OF RIGHT Venipuncture / 09/26/2021 10:25 05/2022 UPPER LIMB / Unknown AM CDT 10:44 AM CDT Unknown Cordell Herrera MD LAB - BLOOD ORDERABLES Performing Organization Address [facility]/ZIP Code Ph[place] [address] Lab [address] [facility], Room 3-580 (ABNORMAL) Comprehensive metabolic panel (09/26/2021 10:25 AM CDT) Patholo gist Method Time Signature Sodium 140 133 - 144 09/26/2021 [facility] mmol/L 11:13 AM CDT Potassium 3.5 3.4 - 5.3 09/26/2021 [facility] mmol/L 11:13 AM CDT Chloride 108 94 - 109 09/26/2021 [facility] mmol/L 11:13 AM CDT Carbon Dioxide 25 20 - 32 09/26/2021 [facility] (CO2) mmol/L 11:13 AM CDT Anion Gap 7 3 - 14 09/26/2021 [facility] mmol/L 11:13 AM CDT Urea Nitrogen 21 7 - 30 09/26/2021 [facility] mg/dL 11:13 AM CDT Creatinine 0.84 0.66 - 09/26/2021 [facility] 1.25 mg/dL 11:13 AM CDT Calcium 9.8 8.5 - 10.1 09/26/2021 [facility] mg/dL 11:13 AM CDT Glucose 92 70 - 99 09/26/2021 [facility] mg/dL 11:13 AM CDT Alkaline 67 40 - 150 09/26/2021 [facility] Phosphatase U/L 11:13 AM CDT AST 19 0 - 45 U/L 09/26/2021 [facility] 11:13 AM CDT ALT 25 0 - 70 U/L 09/26/2021 [facility] 11:13 AM CDT Protein Total 8.6 6.8 - 8.8 09/26/2021 [facility] g/dL 11:13 AM CDT Albumin 4.8 3.4 - 5.0 09/26/2021 [facility] g/dL 11:13 AM CDT Bilirubin Total 1.5 (H) 0.2 - 1.3 09/26/2021 [facility] mg/dL 11:13 AM CDT GFR Estimate >90 >60 09/26/2021 [facility] mL/min/1.7 11:13 AM CDT 3m2 Comment: Effective June 06, 2021 eGF Rcr in adults is calculated using the 2020 CKD-EPI creatinine equation which includ es age and gender (Kristin et al., NEJM, DOI: 10.1056/AYLDxb9965897) Specimen Anatomical Collection Method / Collection Time Recei dipesh Time (Source) Location / Volume Laterality Blood STRUCTURE OF RIGHT Venipuncture / 09/26/2021 10:25 05/2022 UPPER LIMB / Unknown AM CDT 10:44 AM CDT Unknown Cordlel Herrera MD LAB - BLOOD ORDERABLES Performing Organization Address City/State/ZIP Code [place] [address] Lab 500 [facility] [address] Building, Room 3-580 INR (09/26/2021 10:25 AM CDT) P athologist Signature INR 1.13 0.85 - 1.15 09/26/2021 [facility] 11:01 AM CDT Specimen Anatomical Collection Method / Collection Time Recei dipesh Time (Source) Location / Volume Laterality Blood STRUCTURE OF RIGHT Venipuncture / 09/26/2021 10:25 05/2022 UPPER LIMB / Unknown AM CDT 10:42 AM CDT Unknown Cordell Herrera MD LAB - BLOOD ORDERABLES Performing Organization Address City/State/ZIP Code Phon e Number [facility] [place] [address] [phone] Lab 500 [facility] Unit [facility], Room 3-580 IgG (09/26/2021 10:25 AM CDT) P athologist Signature Immunoglobulin G 1,425 610 - 09/26/2021 [facility] 1,616 12:46 PM CDT CORE/PROT/END mg/dL O Specimen Anatomical Collection Method / Collection Time Recei dipesh Time (Source) Location / Volume Laterality Blood STRUCTURE OF RIGHT Venipuncture / 09/26/2021 10:25 05/2022 UPPER LIMB / Unknown AM CDT 10:43 AM CDT Unknown Cordell Herrera MD LAB - BLOOD ORDERABLES Performing Organization Address City/State/ZIP Code Phon e Number [facility] CORE/PROT/ENDO [facility] [place] [address] Core/Prot/Endo [address] [facility], Room 3-580 documented in this encounter Visit [...] documented as of this encounter Care Teams Virtual Assistant For Advertisers Relationship Specialty Start Date End Date Magda Winchester, PCP - General Family Medicine Magnus Zayas, DO Assigned PCP 11/20/[address] [place] [address] [address] [place] [address] documented as of this encounter
--- OUTSIDE RECORDS SUMMARY | 2022-04-10 09:51 | XMS_ITS | Encounter Summary ---
:2000 Author Organization [place] Address [address] [facility] [place] [address] Care Team Providers Name Role Phone Magnus Zayas DO Unavailable [phone] Magda Winchester MD Primary Care Provider Encounter Details Date Type Department Care Team Description 09/26/2021 Travel Social History Tobacco Use Types Packs/Day [...] in contact with No / Unsu re 09/26/2021 9:54 AM CDT someone who was confirmed or suspected to have Coronavirus/COVID-19? documented as of this encounter Plan of Treatment Upcoming Encounters Date Type Specialty Care Team Description 07/27/2022 Ancillary Procedure Cardiology Cordell Juarez MD [address] [facility] [address] [place], [place] [address] (Wo rk) 07/27/2022 Office Visit Cardiology Cordell Juarez MD [address] [place], [place] [address] (Wo rk) documented as of this encounter Visit Diagnoses Not on filedocumented in this encounter Additional Health Concerns Assessment Noted Time PHQ-9 Depression Total Score: 10 04/01/2019 9:14 AM CD T documented as of this encounter Care Teams Stack Supervisor Relationship Specialty Start Date End Date Magda Winchester, PCP - General Family Medicine Magnus Zayas, DO Assigned PCP 11/20/[address] [place] [address] 284 [place], [place] [address] documented as of this encounter
--- OUTSIDE RECORDS SUMMARY | 2022-04-10 09:51 | XMS_ITS | Encounter Summary ---
:2000 Author Organization [place] Address [address] [place] [address] Care Team Providers Name Role Phone Magnus Zayas DO Unavailable [phone] Magda Winchester MD Primary Care Provider Encounter Details Date Type Department Care Team Description 10/11/2021 Travel Social History Tobacco Use Types Packs/Day [...] Ancillary Procedure Cardiology Cordell Juarez MD [address] [facility] [address] [place], [place] [address] (Wo rk) 07/27/2022 Office Visit Cardiology Cordell Juarez MD [address] [place], [place] [address] (Wo rk) documented as of this encounter Visit Diagnoses Not on filedocumented in this encounter Additional Health Concerns Assessment Noted Time PHQ-9 Depression Total Score: 10 04/01/2019 9:14 AM CD T documented as of this encounter Care Teams Rn Informatics Relationship Specialty Start Date End Date Magda Winchester, PCP - General Family Medicine Magnus Zayas, DO Assigned PCP 11/20/[address] [place] [address] 284 [place], [place] [address] documented as of this encounter
--- OUTSIDE RECORDS SUMMARY | 2022-04-10 09:51 | XMS_ITS | Encounter Summary ---
:2000 Author Organization [place] Address [address] [facility] [place] [address] Care Team Providers Name Role Phone Magnus Zayas DO Unavailable [phone] Magda Winchester MD Primary Care Provider Encounter Details Date Type Department Care Team Description 09/28/2021 Travel Social History Tobacco Use Types Packs/Day [...] Procedure Cardiology Cordell Juarez MD [address] [facility] [address] [place], [place] [address] (Wo rk) 07/27/2022 Office Visit Cardiology Cordell Juarez MD [address] [place], [place] [address] (Wo rk) documented as of this encounter Visit Diagnoses Not on filedocumented in this encounter Additional Health Concerns Assessment Noted Time PHQ-9 Depression Total Score: 10 04/01/2019 9:14 AM CD T documented as of this encounter Care Teams Brake Lining Curer Relationship Specialty Start Date End Date Magda Winchester, PCP - General Family Medicine Magnus Zayas, DO Assigned PCP 11/20/[address] [place] [address] 284 [place], [place] [address] documented as of this encounter
--- OUTSIDE RECORDS SUMMARY | 2022-04-10 09:51 | XMS_ITS | Encounter Summary ---
:2000 Author Organization [place] Address [address] [place] [address] Care Team Providers Name Role Phone Magnus Zayas DO Unavailable [phone] Magda Winchester MD Primary Care Provider Encounter Details Date Type Department Care Team Description 02/06/2022 Travel Social History Tobacco Use Types Packs/Day [...] Ancillary Procedure Cardiology Cordell Juarez MD [address] [facility] [address] [place], [place] [address] (Wo rk) 07/27/2022 Office Visit Cardiology Cordell Juarez MD [address] [place], [place] [address] (Wo rk) documented as of this encounter Visit Diagnoses Not on filedocumented in this encounter Additional Health Concerns Assessment Noted Time PHQ-9 Depression Total Score: 10 04/01/2019 9:14 AM CD T documented as of this encounter Care Teams Bottle Packer Relationship Specialty Start Date End Date Magda Winchester, PCP - General Family Medicine Magnus Zayas, DO Assigned PCP 11/20/[address] [place] [address] 284 [place], [place] [address] documented as of this encounter
--- OUTSIDE RECORDS SUMMARY | 2022-04-10 09:51 | XMS_ITS | Encounter Summary ---
:2000 Author Organization [place] Address [address] [facility] 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) Chest pain, unspecified type Single ventricle with heterotaxia syndrome Cordell Juarez MD Procedures MRA Chest with Contrast [address] [facility] [place], [place] [address] Referral ID Status Reason Start Date Expiration Date Visits Requ ested Visits Authorized [id number] Closed 09/28/2021 09/28/2022 1 1 Reason for Visit Diagnostic Imaging MRI (Routine) - Closed Specialty Diagnoses / Procedures Referred By Contact Refer red To Contact Diagnoses 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) Chest pain, unspecified type Single ventricle with heterotaxia syndrome Cordell Juarez MD Procedures MRA Chest with Contrast [address] [place], [place] [address] Referral ID Status Reason Start Date Expiration Date Visits Requ ested Visits Authorized [id number] Closed 09/28/2021 09/28/2022 1 1 Encounter Details Date Type Department Care Team Description 11/10/2021 Hospital Encounter [facility] Cordell Juarez , 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; [facility] Imaging D-TGA (dextro-transposition of great art eries); [address] Chest pain, unspecified type ; [place], [place] [address] [place] [address] [place], [place] [phone] [address] Social History Tobacco Use Types Packs/Day Years [...] 07/27/2022 Ancillary Procedure Cardiology Cordell Juarez MD [facility] [address] [address] (Wo rk) 07/27/2022 Office Visit Cardiology Cordell Juarez MD [facility] [place] [address] (Wo rk) documented as of this encounter Procedures Procedure Name Priority Date/Time Associated Diagnosis Comme nts MRA CHEST W Routine 11/10/2021 12:46 PM Double-outlet right R esults for this CONTRAST CDT ventricle with procedure are in ventricular septal the resul ts defect section. D-TGA (dextro-transpositio n of great arter ies) Chest pain, unspecified type Single ventricle with heterotaxia syndrome documented in this encounter Results MRA Chest with Contrast (11/10/2021 12:46 PM CDT) Anatomical Region Laterality Modality Chest, SUBRAD IR PROCEDURE, UMP MR MRA, RAD MR Magnetic Resonance Specimen (Source) Anatomical Collection Method Collection Time Re ceived Time Location / / Volume Laterality 11/10/2021 10:59 AM CDT Narrative 11/10/2021 1:26 PM CDT ? [place] [facility] ? CMR Report ??MRN: ?[id number] ?Name: ? RENÉ, JUDE L ?: ?2000-0 8-16 ?Scan Date: ?? [...] ?REFERRING PHYSICIAN: ??CORDELL JUAREZ ?ATTENDING PHYSICIAN: ??CORDELL SANCHEZ -------- ?CPT Codes ?ICD10 Codes ?Q20.1, Q20.3, R07.9, Q20.4 Report generated by gil Tena of [employer] Procedure Note Patrizia Panda MD - 11/10/2021Klaus toney of this note might be different from the original. [facility] CMR Report Name: JUDE BILLS : 2000 [...] ------- REFERRING PHYSICIAN: CORDELL JUAREZ ATTENDING PHYSICIAN: CORDELL JUAREZ BILLING -------- CPT Codes ICD10 Codes Q20.1, Q20.3, R07.9, Q20.4 Report generated by gil Tena of [facility] [employer] Cordell Juarez MD IMG MRI ORDERABLES documented [...] documented as of this encounter Care Teams Manager Contact Relationship Specialty Start Date End Date Magda Winchester, PCP - General Family Medicine Magnus Zayas, Assigned PCP 11/20/[address] [place] [address] documented as of this encounter
--- OUTSIDE RECORDS SUMMARY | 2022-04-10 09:51 | XMS_ITS | Encounter Summary ---
:2000 Author Organization [place] Address [facility] [place] [address] Care Team Providers Name Role Phone Magnus Zayas DO Unavailable [phone] Magda Winchester MD Primary Care Provider Reason for Visit Reason Onset Date Comments Prior Auth - Medication 10/20/2021 Sildenafil Citra te 20 MG - APPROVED Encounter Details Date Type Department Care Team Description 10/20/2021 Telephone [facility] Cordell Juarez Prio r Auth - Pediatric Specialty Medication (Sild[facility]afil Clinic [address] Citrate 20 MG - [address] [facility] [address] APPROVED/) [address] [place] [address] [phone] Social History Tobacco Use Types Packs/Day Years [...] this encounter Miscellaneous Notes Telephone Encounter - Dorothea Amaral - 10/31/2021 7:14 AM CDT Images from the original note were not included. 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 Telephone Encounter - Dorothea Amaral - 10/26/2021 2:49 PM CDT Insurance requesting more information. Form faxed. Telephone Encounter - Dorothea Amaral - 10/25/2021 9:37 AM CDT Images from the original note were not included. Central Prior Authorization Team PA Initiation Medication: Sildenafil Citrate 20 MG Tab Ajan Insurance [employer]: [employer] - Pharmacy Filling the Rx: [id number] [place] [address] Filling Pharmacy Filling Pharmacy Start Date: 10/25/2021 Telephone Encounter - Mahesh Sanford CMA - 10/20/2021 1:21 PM CDT Fixed the P.A and listed the medication. Let me know if you see it Mahesh Bustos Telephone Encounter - Mahesh Sanford CMA - 10/20/2021 1:15 PM CDT Telephone Encounter - Mahesh Sanford CMA - 10/20/2021 11:20 AM CDT Prior Authorization Retail Medication Request Medication/Dose: ICD code (if different than what is on RX): Previously Tried and Failed: Rationale: [facility] Pharmacy Information (if different than what is on RX) Name: [facility] documented in this encounter Plan of Treatment Upcoming Encounters Date Type Specialty Care Team Description 07/27/2022 Ancillary Procedure Cardiology Cordell Juarez MD [facility] [place] [address] (Wo rk) 07/27/2022 Office Visit Cardiology Cordell Juarez MD [address] [facility] [address] [place], [place] [address] (Wo rk) documented as of this encounter Visit Diagnoses Not on filedocumented in this encounter Additional Health Concerns Assessment Noted Time PHQ-9 Depression Total Score: 10 04/01/2019 9:14 AM CD T documented as of this encounter Care Teams Service And Repair Supervisor Relationship Specialty Start Date End Date Magda Winchester, PCP - General Family Medicine Magnus Zayas, DO Assigned PCP 11/20/[address] [place] [address] 284 [place] [address] documented as of this encounter
--- OUTSIDE RECORDS SUMMARY | 2022-04-10 09:51 | XMS_ITS | Encounter Summary ---
:2000 Author Organization [place] Address [address] [facility] [place] [address] Care Team Providers Name Role Phone Magnus Zayas DO Unavailable [phone] Magda Winchester MD Primary Care Provider Reason for Visit Reason Comments Medication Refill Digoxin Oral Tablet 250 MCG Encounter Details Date Type Department Care Team Description 10/03/2021 Refill [facility] LarryShlomo MD Medication Refill Clinic [address] [facility] (Digoxin Oral Tablet [address] [facility] [address] 250 MCG) [place], [place] [address] [phone] Social History Tobacco Use Types Packs/Day Years [...] this encounter Miscellaneous Notes Telephone Encounter - Deyanira Garcia RN - 10/05/2021 9:01 AM CDT Digoxin Oral Tablet 250 MCG Last Written Prescription Date: 04/26/2021 Last Fill Quantity: 90, # refills: 0 Last Office Visit : 09/26/2021 Future Office visit: None Routing refill request to provider for review/approval because: Over due Digoxin labs Last done Aug 2019 Refer to clinic for review Recent Labs Lab Test 08/19/19 1025 DIGOXIN 1.1 Deyanira Garcia RN Central Triage Red Flags/Med Refills documented in this encounter Plan of Treatment Upcoming Encounters Date Type Specialty Care Team Description 07/27/2022 Ancillary Procedure Cardiology Cordell Juarez MD [address] [place] [place], [place] [address] (Wo rk) 07/27/2022 Office Visit Cardiology Cordell Juarez MD [address] [place], [place] [address] (Wo rk) documented as of this encounter Visit Diagnoses Diagnosis SVT (supraventricular tachycardia) (H) Other specified cardiac dysrhythmias documented in this encounter Additional Health Concerns Assessment Noted Time PHQ-9 Depression Total Score: 10 04/01/2019 9:14 AM CD T documented as of this encounter Care Teams Armament Mechanic Relationship Specialty Start Date End Date Magda Winchester, PCP - General Family Medicine Magnus Zayas, DO Assigned PCP 11/20/[address] [place] [address] 284 [place] [address] documented as of this encounter
--- OUTSIDE RECORDS SUMMARY | 2022-04-10 09:51 | XMS_ITS | Encounter Summary ---
:2000 Author Organization [place] Address [facility] [place] [address] Care Team Providers Name Role Phone Magnus Zayas DO Unavailable [phone] Magda [place] MD Primary Care Provider Reason for Visit Reason Onset Date Comments Prior Auth - Medication 03/13/2022 Sildenafil - new insurance, denied Encounter Details Date Type Department Care Team Description 03/13/2022 Telephone [facility] Cordell Juarez Prio r Auth - Pediatric Specialty MD Medication (Sild[facility]afil [facility] [address] - new insurance, [address] [facility] [address] denied) [address] [place] [address] [phone] Social History Tobacco Use Types Packs/Day Years Used Date Smoking Tobacco: Never Smokeless Tobacco: Never Comments: none at home Alcohol Use Standard Drinks/Week Comments No 0 (1 standard drink = 0.6 oz pure alcoho l) Sex Assigned at Date Recorded Male 03/09/2019 1:21 PM CDT documented as of this encounter Miscellaneous Notes Telephone Encounter - Artemio Jordan - 03/15/2022 9:03 AM CDT Images from the original note were not included. PRIOR AUTHORIZATION DENIED Medication: Sildenafil - new insurance, denied Denial Date: 03/13/2022 Denial Rational:Insurance's coverage criteria requires that the patient have a diagnosis of pulmonary arterial hypertension Appeal Information: Telephone Encounter - Artemio Jordan - 03/13/2022 1:20 PM CDT Images from the original note were not included. PA Initiation Medication: Sildenafil - new insurance Insurance Company: [employer] - Start Date: 03/13/2022 documented in this encounter Plan of Treatment Upcoming Encounters Date Type Specialty Care Team Description 07/27/2022 Ancillary Procedure Cardiology Cordell Juarez MD [facility] [address] [address] (Wo rk) 07/27/2022 Office Visit Cardiology Cordell Juarez MD [facility] [address] [address] (Wo rk) documented as of this encounter Visit Diagnoses Not on filedocumented in this encounter Additional Health Concerns Assessment Noted Time PHQ-9 Depression Total Score: 10 04/01/2019 9:14 AM CD T documented as of this encounter Care Teams Founding Partner Relationship Specialty Start Date End Date Magda [place], PCP - General Family Medicine Magnus Zayas, DO Assigned PCP 11/20/[address] [place] [address] [address] [place], [place] [id number] documented as of this encounter
--- OUTSIDE RECORDS SUMMARY | 2022-04-10 09:51 | XMS_ITS | Encounter Summary ---
:2000 Author Organization [place] Address [facility] [place] [address] Care Team Providers Name Role Phone Magnus Zayas DO Unavailable [phone] Magda [place] MD Primary Care Provider Encounter Details Date Type Department Care Team Description 10/09/2021 Orders Only [facility] Heart [place], Tach ycardia with heart rate 100-120 beats per minute (Primary Dx); Clinic Marie Day RN D-TGA (dextro-transposition of great arteries); [address] [place] [address] Chest [place], [place] [address] Social History Tobacco Use Types Packs/Day Years [...] Ancillary Procedure Cardiology Cordell Juarez MD [address] [place] [address] (Wo rk) 07/27/2022 Office Visit Cardiology Cordell Juarez MD [address] [place] [address] (Wo rk) documented as of this encounter Results Digoxin level (11/01/2021 4:31 [...] City/State/ZIP Code Phon e Number [place] [address] [facility], Room 3-580 documented in this encounter Visit Diagnoses Diagnosis Tachycardia with heart rate 100-120 beat s per minute - Primary D-TGA (dextro-transposition of great art eries) Complete transposition of great vessels Chest pain, unspecified type documented in this encounter Additional Health Concerns Assessment Noted Time PHQ-9 Depression Total Score: 10 04/01/2019 9:14 AM CD T documented as of this encounter Care Teams Supervisor Partial Denture Department Relationship Specialty Start Date End Date Magda [place], PCP - General Family Medicine Magnus Zayas, DO Assigned PCP 11/20/[address] [place] [address] [address] [place] [address] documented as of this encounter
--- OUTSIDE RECORDS SUMMARY | 2022-04-10 09:51 | XMS_ITS | Encounter Summary ---
:2000 Author Organization [place] Address [address] [facility] [place] [address] Care Team Providers Name Role Phone Magnus Zayas DO Unavailable [phone] Magda [place] MD Primary Care Provider Encounter Details Date Type Department Care Team Description 11/10/2021 Travel Social History Tobacco Use Types Packs/Day [...] Ancillary Procedure Cardiology Cordell Juarez MD [address] [facility] [address] [place], [place] [address] (Wo rk) 07/27/2022 Office Visit Cardiology Cordell Juarez MD [address] [place], [place] [address] (Wo rk) documented as of this encounter Visit Diagnoses Not on filedocumented in this encounter Additional Health Concerns Assessment Noted Time PHQ-9 Depression Total Score: 10 04/01/2019 9:14 AM CD T documented as of this encounter Care Teams Rectifier Operator Relationship Specialty Start Date End Date Magda [place], PCP - General Family Medicine Magnus Zayas, DO Assigned PCP 11/20/[address] [place] [address] 284 [place], [place] [phone] documented as of this encounter
--- OUTSIDE RECORDS SUMMARY | 2022-04-10 09:52 | XMS_ITS | Encounter Summary ---
:2000 Author Organization [place] Address [address] [facility] [place] [address] Care Team Providers Name Role Phone Magnus Zayas DO Primary Care Provider Magnus Zayas DO Unavailable [phone] Reason for Visit Reason Comments Medication Refill Encounter Details Date Type Department Care Team Description 04/25/[address] [facility] Heart Larry, Shlomo Barajas MD Medication Refill Clinic [address] [facility] [place] [address] [place], [place] [phone] (Wo rk) [address] [phone] Social History Tobacco Use Types Packs/Day Years Used Date Smoking Tobacco: Never Smokeless Tobacco: Never Comments: none at home Alcohol Use Standard Drinks/Week Comments No 0 (1 standard drink = 0.6 oz pure alcoho l) Sex Assigned at Date Recorded Male 03/09/2019 1:21 PM CDT documented as of this encounter Miscellaneous Notes Telephone Encounter - Gayathri Wells RN - 04/26/2021 11:24 AM CST Last Clinic Visit: 03/10/21 [place]: NONE CARD FYI 90 DAY RF SENT OVER 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 documented in this encounter Plan of Treatment Upcoming Encounters Date Type Specialty Care Team Description 07/27/2022 Ancillary Procedure Cardiology Cordell Juarez MD [address] [place], [place] [address] (Wo rk) 07/27/2022 Office Visit Cardiology Cordell Juarez MD [address] [facility] [address] [place], [place] [address] (Wo rk) documented as of this encounter Visit Diagnoses Diagnosis SVT (supraventricular tachycardia) (H) Other specified cardiac dysrhythmias documented in this encounter Additional Health Concerns Assessment Noted Time PHQ-9 Depression Total Score: 10 04/01/2019 9:14 AM CD T documented as of this encounter Care Teams 6Th Grade Teacher Relationship Specialty Start Date End Date Magnus Zayas, PCP - General Student in organized 02/23/20 09/17/[address] education/training program [address] [place] [id number] Magnus Zayas, Assigned PCP 11/20/[address] [place] [address] documented as of this encounter
--- OUTSIDE RECORDS SUMMARY | 2022-04-10 09:52 | XMS_ITS | Encounter Summary ---
:2000 Author Organization [place] Address [facility] [place] [address] Care Team Providers Name Role Phone Magnus Zayas DO Primary Care Provider [phone] LogCeleste milan MD Unavailable Reason for Visit Reason Comments Medication Refill omeprazole (PRILOSEC) [address] capsule Encounter Details Date Type Department Care Team Description 11/13/[address] [facility] Heart Shlomo Juarez MD Medication Refill Clinic [address] [place] [address] (omeprazole (PRILOSEC) [address] [facility] [address] capsule) [place] [address] [phone] Social History Tobacco Use Types Packs/Day Years Used Date Smoking Tobacco: Never Smokeless Tobacco: Never Comments: none at home Alcohol Use Standard Drinks/Week Comments No 0 (1 standard drink = 0.6 oz pure alcoho l) Sex Assigned at Date Recorded Male 03/09/2019 1:21 PM CDT documented as of this encounter Plan of Treatment Upcoming Encounters Date Type Specialty Care Team Description 07/27/2022 Ancillary Procedure Cardiology Cordell Juarez MD [address] [facility] [address] [place] [address] (Wo rk) 07/27/2022 Office Visit Cardiology LarryCordell MD [address] [facility] [address] [place] [address] (Wo rk) documented as of this encounter Visit Diagnoses Diagnosis Chest pain, unspecified type documented in this encounter Additional Health Concerns Assessment Noted Time PHQ-9 Depression Total Score: 10 04/01/2019 9:14 AM CD T documented as of this encounter Care Teams Edge Grinder Relationship Specialty Start Date End Date Magnus Zayas, ORI - General Student in organized 02/23/20 09/17/[address] education/training program [address] [place], [place] [address] Celeste Scales MD Assigned PCP 11/10/20 11/19/[address] [place] [phone] documented as of this encounter
--- OUTSIDE RECORDS SUMMARY | 2022-04-10 09:52 | XMS_ITS | Encounter Summary ---
:2000 Author Organization [place] Address [address] [facility] [place] [address] Care Team Providers Name Role Phone Magnus Zayas DO Primary Care Provider Magnus Zayas DO Unavailable [phone] Reason for Visit Reason Comments Medication Refill Metoprolol Succinate ER Oral Tablet Extended Release 24 Hour 25 MG Encounter Details Date Type Department Care Team Description 03/20/2021 Refill [facility] Heart LarryShlomo MD Medication Refill Clinic [address] [place] [address] (Metoprolol Succinate [address] [facility] [address] [place] [address] Release 24 Hour 25 MG) [address] [phone] Social History Tobacco Use Types Packs/Day Years Used Date Smoking Tobacco: Never Smokeless Tobacco: Never Comments: none at home Alcohol Use Standard Drinks/Week Comments No 0 (1 standard drink = 0.6 oz pure alcoho l) Sex Assigned at Date Recorded Male 03/09/2019 1:21 PM CDT COVID-19 Exposure Response Date Recorded In the last month, have you been in contact with No / Unsure 03/10/2021 3:01 PM CDT someone who was confirmed or suspected to have Coronavirus / COVID-19? documented as of this encounter Miscellaneous Notes Telephone Encounter - Deyanira Garcia RN - 03/21/2021 12:05 PM CDT Metoprolol Succinate ER Oral Tablet Extended Release 24 Hour 25 MG Last Written Prescription Date: ? Last Fill Quantity: ?, # refills: ? Last Office Visit : 03/10/2021 Future Office visit: None Routing refill request to provider for review/approval because: Drug not active on patient's medication list Deyanira Garcia RN Central Triage Red Flags/Med Refills documented in this encounter Plan of Treatment Upcoming Encounters Date Type Specialty Care Team Description 07/27/2022 Ancillary Procedure Cardiology Cordell Juarez MD [address] [place], [place] [address] (Wo rk) 07/27/2022 Office Visit Cardiology Cordell Juarez MD [address] [place], [place] [address] (Wo rk) documented as of this encounter Visit Diagnoses Not on filedocumented in this encounter Additional Health Concerns Assessment Noted Time PHQ-9 Depression Total Score: 10 04/01/2019 9:14 AM CD T documented as of this encounter Care Teams Nurse Prn Relationship Specialty Start Date End Date Magnus Zayas, PCP - General Student in organized 02/23/20 09/17/[address] [place] [address] education/training program [address] [place], [place] [phone] Magnus Zayas, Assigned PCP 11/20/[address] [place] [address] [address] [place], [place] [phone] documented as of this encounter
--- OUTSIDE RECORDS SUMMARY | 2022-04-10 09:52 | XMS_ITS | Encounter Summary ---
:2000 Author Organization [facility] Address [address] [facility] 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) Cordell Juarez MD Procedures Cardiopulmonary Stress Test - Adult [address] [facility] [address] [place], [place] [address] 4 Referral ID Status Reason Start Date Expiration Date Visits Requ ested Visits Authorized [id number] Closed 03/10/2021 03/10/2022 1 1 V Testing (Routine) - Closed Specialty Diagnoses / Procedures Referred By Contact Refer red To Contact Diagnoses 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) Cordell Juarez MD Procedures Echo Congenital Adult [facility] ECHO XTHORACIC,NEHEMIAS ANOM,COMPLETE [facility] ECHO CONGENITAL W/CONTRAST ZZ[facility] ECHO CONGENITAL W/O CONTRAST [facility] DOPPLER ECHO PULSED, COMPLETE ZZ[facility] DOPPLER ECHO COLOR FLOW VELOCITY MAP [address] [facility] [address] ZZ[facility] STATISTIC IV PUSH SINGL E INITIAL SUBSTANCE [place] DOPPLER ECHO PULSED, COMPLETE [place] DOPPLER ECHO COLOR FLOW VELOCITY MAP [place] ECHO XTHORACIC,NEHEMIAS ANOM,COMPLETE [place] ECHO CONGENITAL W/O CONTRAST HC DOPPLER ECHO PULSED, [place] [address] HC DOPPLER ECHO COLOR FLOW V ELOCITY MAP HC STATISTIC IV PUSH SINGLE INITIAL SUBSTANCE HC ECHO CONGENITAL ANOM W/CONTRAST HC ECHO CONGENITAL ANOM W/O CONTRAST Referral ID Status Reason Start Date Expiration Date Visits Requ ested Visits Authorized [id number] Closed 03/10/2021 03/10/2022 1 1 Specialty Diagnoses / Procedures Referred By Contact Refer red To Contact Cordell Juarez M D [address] [place] [address] [address] [place], [place] [address] Referral ID Status Reason Start Date Expiration Date Visits Requ ested Visits Authorized Reason for Visit Reason Comments Follow Up 21 year old male with 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 Encounter Details Date Type Department Care Team Description 03/10/2021 Office Visit [facility] Cordell Juarez D-TG A (dextro- transposition of great arteries) (Primary Dx); Heart Clinic 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 [address] [facility] [address] [place], [place] [address] [place], [place] [phone] (Wo rk) Social History Tobacco Use Types [...] / COVID-19? documented as of this encounter Last Filed Vital Signs Vital Sign Reading Time Taken Comments Blood Pressure 119/73 03/10/2021 3:24 PM CDT Pulse 57 03/10/2021 3:24 PM CDT Temperature - - Respiratory Rate - - Oxygen Saturation 94% 03/10/2021 3:24 PM CDT Inhaled Oxygen Concentration - - Weight 64 kg (141 lb) 03/10/2021 3:24 PM CDT Mesured w ith shoes Height - - Body Mass Index 23.98 09/09/2020 9:31 AM CDT documented in this encounter Patient Instructions Patient InstructionsChuyita Wren RN - 03/10/2021 3:30 PM CDT You were seen today in the Adult Congenital and Cardiovascular Genetics Clinic at the [facility]. Cardiology Providers you saw during your visit: Cordell Juarez MD Diagnosis: DORV Results: Cordell Juarez MD reviewed the results of your EKG testing today in clinic. Recommendations: 1. Continue to eat a heart healthy, low salt diet. 2. Continue to get 20-30 minutes of aerobic activity, 4-5 days per week. Examples of aerobic activity include walking, running, swimming, cycling, etc. 3. Continue to observe good oral hygiene, with regular dental visits. 4. No changes today. SBE prophylaxis: Yes_X___ No____ Lifelong Bacterial Endocarditis Prophylaxis: YES__X__ NO____ If YES is checked, follow the recommendations outlined below: 1. Take antibiotic(s) prior to recommended dental procedures and procedures on the respiratory tractor with infected skin, muscle or bones. SBE prophylaxis is not needed for routine GI and procedures (ie. Colonoscopy or vaginal delivery) 2. Observe good oral hygiene daily, as advised by your dentist. Get regular professional dental care. 3. Keep cuts clean. 4. Infections should be treated promptly. 5. Symptoms of Infective Endocarditis could include: fever lasting more than 4-5 days or a recurrentfever that initially resolves but returns within 1-2 [...] with Dr. Juarez in 6 months with echo, CPX, and labs prior. If you have questions or concerns please contact us at: Chuyita Wren, MSN, RN, CNL Florinda Robb (Scheduling) Nurse Web Portal Developer Clinic Recreation Technician Adult Congenital and CV Genetics Adult Congenital and CV Genetic [facility] (P) [phone] (P) [phone] [email or web address] (F) [phone] For after hours urgent needs, call [phone] and ask to speak to the Adult Congenital Physician information systems technician. Mention Job Code 0401. For emergencies call 911. [facility] Mail Code [id number] [place] [id number] documented in this encounter Progress Notes Cordell Juarez MD - 03/10/2021 3:30 PM CDT Adult Congenital Cardiology Visit Patient: Jude Bills Date of : 2000 Age: [age] year old Date of Visit: Mar 10, 2021 PCP: Magnus Zayas, Dear Dr. Zayas, I had the pleasure of seeing your patient, Jude Bills, in the [facility] clinic at the [facility] on Mar 10, 2021. 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 He underwent a central shunt, followed by a Fortino procedure and [facility] [place]. He had catheter closure of his Fontan fenestration at the [facility] in January 2007. Jude has a history [...] on low dose lasix, sildenafil and omeprazole. ?? Jude was last seen in our clinic on 09/09/20 at which time he was doing quite well, and we made no changes to his medication regimen. Today, he returns for a routine follow-up, and continues to do quitewell. He is staying active with martial arts training four times each week. He occasionally has to take short breaks when training, but is overall doing well. 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 He has otherwisebeen feeling well and denies any ankle edema, SOB, sustained arrhythmias, abdominal distension, diarrhea or episodes of bleeding. He does continue to have rare, short episodes of palpitations that lasta few seconds. He is not on any anticoagulation due to multiple episodes of bleeding (most recently severe psoas hemorrhage in 2019). Jude sees the dentist regularly and uses antibiotic prophylaxis forSBE. Past medical history: Jude's other medical issues [...] medication list which includes the following prescription(s): amoxicillin, digoxin,furosemide, montelukast, omeprazole, sertraline, sildenafil, and spironolactone. Heis allergic to seasonal allergies. Current Outpatient Medications Medication ??? amoxicillin (AMOXIL) 500 MG capsule ??? digoxin (LANOXIN) 250 MCG tablet ??? furosemide (LASIX) 20 MG tablet ??? montelukast (SINGULAIR) 10 MG tablet ??? omeprazole (PRILOSEC) [address] capsule ??? sertraline (ZOLOFT) 25 MG tablet ??? sildenafil (REVATIO) 20 MG tablet ??? spironolactone (ALDACTONE) 25 MG tablet No current facility-administered medications for this visit. Family History: Unknown, as Jude is adopted. Social history: Denies tobacco use, alcohol, or recreational drug use. Is currently enrolled in nursing school. Working as MA at [employer]. Review of Systems: A comprehensive review of systems was performed and is negative, except as noted in the HPI and PMH Physical exam: His weight is 64 kg (141 lb). His blood pressure is 119/73 and his pulse is 57. His oxygen saturation is 94%. His body mass index is 23.98 kg/m??. His body surface area is 1.7 meters squared. Jude is a well appearing [...] moves all extremities equally with normal tone. 12 Lead EKG performed and personally reviewed in clinic: Shows sinus bradycardia with RVH, right axis deviation, incomplete RBBB. No other studies performed in clinic today. [...] pericardial effusion. Impression: Jude is a 21 yo male s/p Fontan for heterotaxy, DORV, d-TGA, pulmonary stenosis and LV hypoplasia. He had device occlusion of his fenestration and has been bothered the last several years by palpitations and chest pain. He is currently asymptomatic from cardiac stand point and last set of labs showed normal hepatic and renal function, with no hypoproteinemia. He has good heart rate variability on Holter monitor, and acceptable exercise tolerance. Given hemorrhagic events, the warfarin given for riskof thomboembolism has been stopped. He also had colitis with aspirin. Will continue to hold off on prophylactic anticoagulation at this time. ?? Recommendations: 1) Follow-up in 6 months with CPX, Echo, and Labs 2) No medication changes today Thank you for the opportunity to participate in Jude's care. Please do not hesitate to call with questions or concerns. Patient was seen and examined with the attending physician, Dr. Juarez, who is in agreement with the assessment and plan. Isidoro Hanson MD Physical Meteorologist I, Cordell Juarez MD, saw this patient with the fellow and agree with the findings and plan of care as documented in this note.I have reviewed this patient's history, examined the patient and reviewed relevant laboratory findings and diagnostic testing. I have discussed the plan of care with the patient at the time of this visit. Cordell Juarez M.D. Reinforcing Bar Setter of Pediatrics Pediatric and Adult Congenital Cardiology [facility] Pediatric Cardiology Office [phone] Adult Congenital Cardiology Triage and Scheduling [phone] CC: Jude Marquis René SHOP CLERK documented in this encounter Nursing Notes Carmelo Lee - 03/10/2021 3:30 PM CDT Chief Complaint Patient presents with ??? Follow Up 21 year old male with history of double outlet right ventricle, left ventricular hypoplasia, d-transposition of the great vessels and pulmonary stenosis, s/p Fontan. Vitals were taken, medications reconciled, and EKG was performed. Carmelo Lee, EMT 3:33 PM Chuyita Wren RN - 03/10/2021 3:30 PM CDT Cardiac Testing: Patient given instructions regarding CPX and echocardiogram . Discussed purpose, preparation, procedure and when to expect results reported back to the patient. Patient demonstrated understanding of this information and agreed to call with further questions or concerns. Diet: Patient instructed regarding a heart healthy diet, including discussion of reduced fat and sodium intake. Patient demonstrated understanding of this information and agreed to call with further questions or concerns. Labs: Patient was given results of the laboratory testing obtained today. Patient was instructed to return for the next laboratory testing in 6 months. Patient demonstrated understanding of this information and agreed to call with further questions or concerns. Med Reconcile: Reviewed and verified all current medications with the patient. The updated medication list was printed and given to the patient. Return Appointment: Patient given instructions regarding scheduling next clinic visit. Patient demonstrated understanding of this information and agreed to call with further questions or concerns. Patient stated he understood all health information given and agreed to call with further questions or concerns. Chuyita Wren, MSN, RN, CNL Cardiology Web Portal Developer [facility] [phone] documented in this encounter Plan of Treatment Upcoming Encounters Date Type Specialty Care Team Description 07/27/2022 Ancillary Procedure Cardiology Cordell Juarez MD [address] [place] [address] (Wo rk) 07/27/2022 Office Visit Cardiology Cordell Juarez MD [address] [place] [address] (Wo rk) Scheduled Referrals Name Type Priority Associated Diagnoses Order S chedule Adult Congenital and Referral Routine: Next Double-outlet right Expected: CV Genetics Clinic available opening ventricle with ventricular septal (Approxim ate), defect Expires: D-TGA 03/10/2022 (dextro-transpositio n of great arteries) documented as of this encounter Procedures Procedure Name Priority Date/Time Associated Diagnosis Comme nts EKG 12-LEAD, Routine 03/10/2021 3:26 PM D-TGA Results f or this TRACING ONLY CDT (dextro-transpositio procedu re are in n of great arteries) the res ults section. documented in this encounter Results ECHO CONGENITAL ADULT (TTE) (09/26/2021 1:14 PM CDT) Anatomical Region Laterality Modality Echocardiography Specimen (Source) Anatomical Collection Method Collection Time Re ceived Time Location / / Volume Laterality 09/26/2021 12:26 PM CDT Narrative 09/26/2021 1:22 PM CDT [id number]^JAVIER^CORDELL^RYAN ? Study ID: [id number] ?[facility] ?[facility] ?[address] ?[place] [address] ? Pediatric Echocardiogram Name: RENÉJUDE Study Date: 09/26/2021 12:26 PM ? Patient Location: [facility] ? Age: 21 yrs : 2000 ? BP: 121/60 mmHg Gender: Male ?HR: 61 Patient Class: Outpatient ? Height: 163 cm Ordering Provider: CORDELL JUAREZ ?Weight: 62 kg Referring Provider: CORDELL JUAREZ ? BSA: 1.7 m2 Performed By: Fanta Silvestre Report approved by: Vinay Louis Reason For Study: Double-outlet right ve ntricle with ventricular septal defect, D- ##### CONCLUSIONS ##### Double outlet right ventricle, transposi tion of the great arteries (d-TGA) and a large anterior malalignment ventricula r septal defect after fenestrated Fontan operation. Previous device closur e of Fontan fenestration. The Fontan fenestration device is in goo d position. There is laminar phasic color flow in the Fortino and Fontan shunt . The right ventricular function is qualitatively mildly depressed. Single p kaur right ventricular EF 43%. Upper mild tricuspid valve insufficiency.There is no diastolic runoff in the abdominal aorta. No pericardial effusion . Technical information: A complete two dimensional, spectral and color Doppler transthoracic echocardiogram is performed. The study q uality is fair. Images are obtained from parasternal, apical, subcostal and suprasternal notch views. Prior echocardiogram available for comparison. ECG tracing shows regular rhythm. Segmental Anatomy: There is normal atrial arrangement. Abse nt left atrioventricular connection. Systemic and pulmonary veins: There is laminar phasic color flow in th e Fortino shunt. Patient has undergone Fontan operation. The Fontan connection is widely patent with phasic laminar flow. Post device closure of Fontan fene stration. The Fontan fenestration device is in good position. Color flow d emonstrates flow from two pulmonary veins entering the left atrium. Atria and atrial septum: The right and left atria are normal in s ize. No thrombus is visualized in the left atrium. No thrombus is visualized i n the right atrium. There is laminar flow across the atrial level communicati on. Post atrial septectomy. Atrioventricular valves: The tricuspid valve is normal in appeara nce and motion. Upper mild (1-2+) tricuspid valve insufficiency. The payal l valve has normal structure, size, insertion and function. Ventricles and Ventricular Septum: Double outlet right ventricle. There is mild right ventricular enlargement. The right ventricular function is qualit atively mildly depressed. Single plane right ventricular EF 43 %. There is a la rge anterior malalignment ventricular septal defect. Outflow tracts: Complete transposition of the great chidi gavino (D-TGA). The systemic outflow tract is unobstructed. Tricuspid aortic valve with normal appearance and motion. There is no aortic valve insuffi ciency. There is no aortic valve stenosis. Great arteries: There is unobstructed flow in both branc h pulmonary arteries. There is unobstructed antegrade flow in the ascen ding, transverse arch, descending thoracic and abdominal aorta. There is n o diastolic runoff in the abdominal aorta. Coronaries: The coronary arteries are not evaluated. Effusions, catheters, cannulas and leads : No pericardial effusion. Doppler Measurements & Calculations MV E max dhruv: 53.3 cm/sec ? Ao V2 max: 86.3 cm/sec MV A max dhruv: 31.8 cm/sec ? Ao max P.0 mmHg MV E/A: 1.7 LV V1 max: 63.0 cm/sec LV V1 max P.6 mmHg LV dP/dt: 699.0 mmHg/s asc Ao max dhruv: 72.2 cm/sec ? desc Ao max dhruv: 94.5 cm/sec asc Ao max P.1 mmHg ? desc Ao max P.6 mmHg Report approved by: Vinay Louis 09/26/2021 01:22 PM Procedure Note Vilma Solano MBBS - 09/26/2021For matting of this note might be different from the original. [id number]^JAVIER^CORDELL^RYAN Study ID: [id number] [facility] [address] [address] Pediatric Echocardiogram Name: JUDE BILLS Study Date: 09/26/2021 12:26 PM Patient [facility] Age: 21 yrs : 2000 BP: 121/60 mmHg Gender: Male HR: 61 Patient Class: Outpatient Height: 163 cm Ordering Provider: CORDELL JUAREZ ght: 62 kg Referring Provider: CORDELL JUAREZ A: 1.7 m2 Performed By: Fanta Silvestre Report approved by: Vinay Louis Reason For Study: Double-outlet right ve ntricle with ventricular septal defect, D- ##### CONCLUSIONS ##### Double outlet right ventricle, transposi tion of the great arteries (d-TGA) and a large anterior malalignment ventricula r septal defect after fenestrated Fontan operation. Previous device closur e of Fontan fenestration. The Fontan fenestration device is in goo d position. There is laminar phasic color flow in the Fortino and Fontan shunt . The right ventricular function is qualitatively mildly depressed. Single p kaur right ventricular EF 43%. Upper mild tricuspid valve insufficiency.There is no diastolic runoff in the abdominal aorta. No pericardial effusion . Technical information: A complete two dimensional, spectral and color Doppler transthoracic echocardiogram is performed. The study q uality is fair. Images are obtained from parasternal, apical, subcostal and suprasternal notch views. Prior echocardiogram available for comparison. ECG tracing shows regular rhythm. Segmental Anatomy: There is normal atrial arrangement. Abse nt left atrioventricular connection. Systemic and pulmonary veins: There is laminar phasic color flow in th e Fortino shunt. Patient has undergone Fontan operation. The Fontan connection is widely patent with phasic laminar flow. Post device closure of Fontan fene stration. The Fontan fenestration device is in good position. Color flow d emonstrates flow from two pulmonary veins entering the left atrium. Atria and atrial septum: The right and left atria are normal in s ize. No thrombus is visualized in the left atrium. No thrombus is visualized i n the right atrium. There is laminar flow across the atrial level communicati on. Post atrial septectomy. Atrioventricular valves: The tricuspid valve is normal in appeara nce and motion. Upper mild (1-2+) tricuspid valve insufficiency. The payal l valve has normal structure, size, insertion and function. Ventricles and Ventricular Septum: Double outlet right ventricle. There is mild right ventricular enlargement. The right ventricular function is qualit atively mildly depressed. Single plane right ventricular EF 43 %. There is a la rge anterior malalignment ventricular septal defect. Outflow tracts: Complete transposition of the great chidi gavino (D-TGA). The systemic outflow tract is unobstructed. Tricuspid aortic valve with normal appearance and motion. There is no aortic valve insuffi ciency. There is no aortic valve stenosis. Great arteries: There is unobstructed flow in both branc h pulmonary arteries. There is unobstructed antegrade flow in the ascen ding, transverse arch, descending thoracic and abdominal aorta. There is n o diastolic runoff in the abdominal aorta. Coronaries: The coronary arteries are not evaluated. Effusions, catheters, cannulas and leads : No pericardial effusion. Doppler Measurements & Calculations MV E max dhruv: 53.3 cm/sec Ao V2 max: 86. 3 cm/sec MV A max dhruv: 31.8 cm/sec Ao max P.0 mmHg MV E/A: 1.7 LV V1 max: 63.0 cm/sec LV V1 max P.6 mmHg LV dP/dt: 699.0 mmHg/s asc Ao max dhruv: 72.2 cm/sec desc Ao max dhruv: 94.5 cm/sec asc Ao max P.1 mmHg desc Ao max P.6 mmHg Report approved by: Vinay Louis 09/26/2021 01:22 PM Cordell Juarez MD CV ECHO ORDERABLES CARDIOPULMONARY STRESS TEST - ADULT (09/26/2021 11:34 AM CDT) Component Value Ref Test Analysis Performed Pathologis t Range Method Time At Signature Target HR 199 Baseline BP 120/86 mmHg Baseline HR 56 bpm Rest BP 116/78 mmHg Rest 72 bpm Last Stress BP 139/69 mmHg Max HR 162 Max Predicted HR 81 % Exercise duration (min) 12 min Exercise duration (sec) 37 sec Estimated workload 8.4 METS PREDICTED VO2MAX 42.7 Max 22,518 CARPULSTRPH1 3 mins [id number] 0 sec CARPULSTRPH1 83 bpm CARPULBPPH1 125/85 mmHg CARPULSTRPH1 95 % SpO2 CARPULSTRPH2 6 mins [id number] 0 sec CARPULSTRPH2 96 bpm CARPULBPPH2 130/80 mmHg CARPULSTRPH2 94 % SpO2 CARPULSTRPH3 9 mins [id number] 0 sec CARPULSTRPH3 120 bpm CARPULBPPH3 130/77 mmHg CARPULSTRPH3 94 % SpO2 CARPULSTRPH4 12 mins [id number] 0 sec CARPULSTRPH4 135 bpm CARPULBPPH4 122/75 mmHg CARPULSTRPH4 94 % SpO2 CARPULSTRPH5 12 mins [id number] 37 sec CARPULSTRPH5 162 bpm CARPULBPPH5 139/69 mmHg CARPULSTRPH5 93 % SpO2 CARPULSTRPB1 1 mins [id number] 0 sec CARPULSTRPHB1 139 bpm CARPULBPPHB1 125/69 mmHg CARPULSTRPHB1 93 % SpO2 CARPULSTRPHB2 3 mins [id number] 0 sec CARPULSTRPHB2 124 bpm CARPULBPPHB2 120/72 mmHg CARPULSTRPHB2 94 % SpO2 CARPULSTRPHB3 5 mins [id number] 0 sec CARPULSTRPHB3 97 bpm CARPULBPPHB3 118/80 mmHg CARPULSTRPHB3 96 % SpO2 Max 29.50 ml/kg/m in Predicted 42.70 ml/kg/m in Percent 69 % RER 1.05 VE/VCO2 [place] 28.82 CARPULANEROBICTHRES 23.60 ml/kg/m in CARPULANAEROBICTHRESPERDICTED 55.0 % Actual SVC (L) 3.35 Predicted SVC (L) 4.67 Percent SVC (L) 72 % Actual FVC (L) 3.43 Predicted FVC (L) 4.67 Percent FVC (L) 73 % Actual FVC (L) 2.90 Predicted FVC (L) 3.96 Percent FVC (L) 73 % Actual FEV 1.0/FVC % 84.6 Predicted FEV 1.0/ FVC % 83.7 Percent FEV 1.0 FVC% 101 % Rest 4.40 ml/kg/m in Max 29.50 ml/kg/m in Rest 1.30 Rest 218.00 ml/min Max 1,973.0 ml/min 0 Rest 0.79 Max 1.05 Rest 4.00 ml/beat Max 11.30 ml/beat Rest 9.90 l/min Max 59.20 l/min Rest 535.00 ml Max 1,498.0 ml 0 Rest 18.00 br/min Max 40.00 br/min Rest 90.30 Max 42.00 Rest 36.00 Max 32.00 Rest 45.00 Max 30.00 Max 28.82 Rest 107.00 Max 108.00 Rest 30.00 Max 37.00 Rest 97.00 % Max 93.00 % Anatomical Region Laterality Modality Other Specimen (Source) Anatomical Location Collection Method / Collectio n Time Received Time / Laterality Volume Narrative 09/30/2021 8:52 AM CDT ?A cardiopulmonary stress test was performed following a Raul ramp protocol with the patient exercising for 12 minutes and 37 seconds under the supervision of Dr. Panda. ??Blood p ressure demonstrated a blunted response to exercise. ??Heart rate demon strated a blunted response to exercise. ?The stress electrocardiogram was non-diagnostic due to ST changes as a result of digitalis. ?The patient's exercise capacity is moderately impaired. ?Anaerobic??Threshold: Anaerobic threshold was achieved at 55% of the predicted. ?Cardiopulmonary??Ventilatory: Ventilatory findings suggests mildly restrictive lung defect. Limitation to exercise suggestive of a c ardiac limitation to exercise. Cardiac limit suggestive due to attenuat ed heart rate, blood pressure, peak VO2 max and a submaximal effort. A ventilatory limitation cannot be ruled out due to baseline abnormal ben metry, elevated breathing reserve and greater than 3% decrease in oxygen s aturation. Stress Findings A cardiopulmonary stress test was perfor med following a Raul ramp protocol with the patient exercising for 12 minutes and 37 seconds under the supervision of Dr. Panda. Blood pressure demonstrated a b lunted response to exercise. Heart rate demonstrated a blunted response to exercise. The patient's exercise capacity is moderately impaired. The test was stopped due to leg fatigue and chest pressure. S ymptoms resolved during recovery. The pa sotero reported chest discomfort during the stress test. Functional capacity response is Class II: 50-74%. ECG Baseline electrocardiogram demonstrates sinus bradycardia and incomplete right bundle branch block and ST abnormality due to digoxin. The stress electrocardiogram was non-diagnostic. The stress electroc ardiogram was non-diagnostic due to ST c hanges as a result of digitalis. Arrhythmias during stress: Occasional PACs. Occasional PVCs. Arrhythmias during recovery: Occasional PVCs. Cardiopulmonary Ventilatory Ventilatory findings suggests mildly res trictive lung defect. Cardiopulmonary Anaerobic threshold Anaerobic threshold was achieved at 55% of the predicted. Cordell Juarez MD CV CARDIAC SERVICES ORDERABL ES IgG (09/26/2021 10:25 AM CDT) P athologist Signature Immunoglobulin G 1,425 610 - 09/26/2021 SPECIALTY 1,616 12:46 PM CDT CORE/PROT/END mg/dL O Specimen Anatomical Collection Method / Collection Time Recei dipesh Time (Source) Location / Volume Laterality Blood STRUCTURE OF RIGHT Venipuncture / 09/26/2021 10:25 05/2022 UPPER LIMB / Unknown AM CDT 10:43 AM CDT Unknown Cordell Juarez MD LAB - BLOOD ORDERABLES Performing Organization Address City/State/ZIP Code Phon e Number [facility] CORE/PROT/ENDO [facility] [place] [address] Core/Prot/Endo [address] [facility] [address] Building, Room 3-580 INR (09/26/2021 10:25 AM CDT) P athologist Signature INR 1.13 0.85 - 1.15 09/26/2021 [facility] 11:01 AM CDT Specimen Anatomical Collection Method / Collection Time Recei dipesh Time (Source) Location / Volume Laterality Blood STRUCTURE OF RIGHT Venipuncture / 09/26/2021 10:25 05/2022 UPPER LIMB / Unknown AM CDT 10:42 AM CDT Unknown Cordlel Juarez MD LAB - BLOOD ORDERABLES Performing Organization Address City/State/ZIP Code Phon e Number [facility] [place] [address] Lab 500 [facility], Room 3-580 (ABNORMAL) Comprehensive metabolic panel (09/26/2021 [...] es age and gender (Kristin et al., [place], DOI: 10.1056/[id number]) Specimen Anatomical Collection Method / Collection Time Recei dipesh Time (Source) Location / Volume Laterality Blood STRUCTURE OF RIGHT Venipuncture / 09/26/2021 10:25 05/2022 UPPER LIMB / Unknown AM CDT 10:44 AM CDT Unknown Cordell Juarez MD LAB - BLOOD ORDERABLES Performing Organization Address City/State/ZIP Code [place] [address] Lab 500 [facility] [address] [facility], Room 3-580 (ABNORMAL) TSH with free T4 reflex (09/26/2021 10:25 AM CDT) P athologist Signature TSH 5.17 (H) 0.40 - 4.00 09/26/2021 [facility] mU/L 11:20 AM CDT Specimen Anatomical Collection Method / Collection Time Recei dipesh Time (Source) Location / Volume Laterality Blood STRUCTURE OF RIGHT Venipuncture / 09/26/2021 10:25 05/2022 UPPER LIMB / Unknown AM CDT 10:44 AM CDT Unknown Cordell Juarez MD LAB - BLOOD ORDERABLES Performing Organization Address City/State/ZIP Code Phon [place] [address] Lab 500 [facility] [address] Building, Room 3-580 EKG 12-lead, tracing only (Same Day) (03/10/2021 3:26 PM CDT) Component Value Ref Range Test Analysis Performed Pathologis t Method Time At Signature Systolic Blood mmHg RADIOLOGY Pressure RESULTS Diastolic Blood mmHg RADIOLOGY Pressure RESULTS Ventricular Rate 54 BPM RADIOLOGY RESULTS Atrial Rate 54 BPM RADIOLOGY RESULTS [place] Interval 172 ms RADIOLOGY RESULTS QRS Duration 100 ms RADIOLOGY RESULTS QT 390 ms RADIOLOGY RESULTS QTc 369 ms RADIOLOGY RESULTS P [place] 10 degrees RADIOLOGY RESULTS R AXIS 268 degrees RADIOLOGY RESULTS T [place] 97 degrees RADIOLOGY RESULTS Interpretation Sinus bradycardia RADIOLO GY ECG Right superior axis deviation RESULTS Incomplete right bundle branch block Right ventricular hypertrophy with repolarization abnormalit y T wave abnormality, consider lateral ischemia Abnormal ECG When compared with ECG of 09-SEP-2020 09:37, No significant change was found Confirmed by MD MELLISA, GM ([id number]) on 03/13/2021 2:50:08 PM Specimen Anatomical Collection Method Collection Time Receive d Time (Source) Location / / Volume Laterality 03/10/2021 3:26 PM 2:50 CDT PM CDT Cordell Juarez MD ECG ORDERABLES Performing Organization Address City/State/ZIP Code Phon e Number RADIOLOGY RESULTS documented in this encounter Visit Diagnoses Diagnosis 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 Transposition of great vessels, double o utlet right ventricle 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 Transposition of great vessels, double o utlet right ventricle 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 Transposition of great vessels, double o utlet right ventricle D-TGA (dextro-transposition of great art eries) Complete transposition of great vessels documented in this encounter Additional Health Concerns Assessment Noted Time PHQ-9 Depression Total Score: 10 04/01/2019 9:14 AM CD T documented as of this encounter Care Teams Nuclear Plant Equipment Operator Relationship Specialty Start Date End Date Magnus Zayas, PCP - General Student in organized 02/23/20 09/17/[address] education/training program [address] [place] [address] Magnus Zayas, Assigned PCP 11/20/[address] [place] [address] documented as of this encounter
--- OUTSIDE RECORDS SUMMARY | 2022-04-10 09:52 | XMS_ITS | Encounter Summary ---
:2000 Author Organization [place] Address [address] [place] [address] Care Team Providers Name Role Phone Magnus Zayas DO Unavailable [phone] Magda Winchester MD Primary Care Provider [...] DOPPLER ECHO COLOR FLOW VELOCITY MAP [facility] [facility] [address] [facility] STATISTIC IV PUSH SINGL E INITIAL SUBSTANCE [place] DOPPLER ECHO PULSED, COMPLETE [place] DOPPLER ECHO COLOR FLOW VELOCITY MAP [place] ECHO XTHORACIC,NEHEMIAS ANOM,COMPLETE [place] ECHO CONGENITAL W/O CONTRAST HC DOPPLER ECHO PULSED, [place] [address] HC DOPPLER ECHO COLOR FLOW V ELOCITY MAP HC STATISTIC IV PUSH SINGLE INITIAL SUBSTANCE HC ECHO CONGENITAL ANOM W/CONTRAST HC ECHO CONGENITAL ANOM W/O CONTRAST Referral ID Status Reason Start Date Expiration Date Visits Requ ested Visits Authorized [id number] Closed 03/10/2021 03/10/2022 1 1 Encounter Details Date Type Department Care Team Description 09/26/2021 Ancillary [facility] Cordell Juarez Doub le-outlet right ventricle with ventricular septal defect; Procedure [facility] Marie DUPREE D-TGA (dextro-transposition of great art eries) [address] [place] [address] Social History Tobacco Use Types Packs/Day [...] 07/27/2022 Ancillary Procedure Cardiology Cordell Juarez MD [facility] [address] [address] (Wo rk) 07/27/2022 Office Visit Cardiology Cordell Juarez MD [facility] [address] [address] (Wo rk) documented as of this encounter Procedures Procedure Name Priority Date/Time Associated Diagnosis Comme nts ECHO CONGENITAL Routine 09/26/2021 1:14 PM Double-outlet right Results for this ADULT (TTE) CDT ventricle with procedure are in ventricular septal the resul ts defect section. D-TGA (dextro-transpositio n of great arteries) documented in this encounter Results ECHO CONGENITAL ADULT (TTE) (09/26/2021 1:14 PM CDT) Anatomical Region Laterality Modality Echocardiography Specimen (Source) Anatomical Collection Method Collection Time Re ceived Time Location / / Volume Laterality 09/26/2021 12:26 PM CDT Narrative 09/26/2021 1:22 PM CDT [id number]^JAVIER^CORDELL^RYAN ? Study ID: [id number] ?[facility] ?[facility] ?[address] ?[place] [address] ? Pediatric Echocardiogram Name: JUDE BILLS Study Date: 09/26/2021 12:26 PM ? Patient [...] note might be different from the original. 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
--- OUTSIDE RECORDS SUMMARY | 2022-04-10 09:52 | XMS_ITS | Encounter Summary ---
:2000 Author Organization [place] Address [facility] [place] [address] Care Team Providers Name Role Phone Magnus Zayas DO Primary Care Provider [phone] Magnus Zayas DO Unavailable [phone] Encounter Details Date Type Department Care Team Description 09/09/2020 Travel Social History Tobacco Use Types Packs/Day [...] been in contact with No / Unsure 09/09/2020 8:58 AM CDT someone who was confirmed or suspected to have Coronavirus / COVID-19? documented as of this encounter Plan of Treatment Upcoming Encounters Date Type Specialty Care Team Description 07/27/2022 Ancillary Procedure Cardiology Cordell Juarez MD [facility] [address] [place] [address] (Wo rk) 07/27/2022 Office Visit Cardiology Cordell Juarez MD [address] [place] [address] (Wo rk) documented as of this encounter Visit Diagnoses Not on filedocumented in this encounter Additional Health Concerns Assessment Noted Time PHQ-9 Depression Total Score: 10 04/01/2019 9:14 AM CD T documented as of this encounter Care Teams Assistant Professor Of Nursing Relationship Specialty Start Date End Date Magnus Zayas, PCP - General Student in organized 02/23/20 09/17/[address] education/training program 284 [place], [place] [address] Magnus Zayas, Assigned PCP 02/28/2004/[address] [place] [address] documented as of this encounter
--- OUTSIDE RECORDS SUMMARY | 2022-04-10 09:52 | XMS_ITS | Encounter Summary ---
:2000 Author Organization [place] Address [address] [facility] [place] [address] Care Team Providers Name Role Phone Magnus Zayas DO Primary Care Provider [phone] Jordon Zayasothy Jostin CENTENO Unavailable [phone] Encounter Details Date Type Department Care Team Description 09/09/[address] [facility] Lab Double -outlet right [place] ventricle with ventricular [address] septal defect 1st Floor [place], [place] [phone] Social History Tobacco Use [...] Care Team Description 07/27/2022 Ancillary Procedure Cardiology Larry, Cordell Barajas MD [address] [facility] [address] [place] [address] (Wo rk) 07/27/2022 Office Visit Cardiology Larry, Cordell skelton MD [address] [facility] [address] [place], [place] [address] (Wo rk) documented as of this encounter Procedures Procedure Name Priority Date/Time Associated Comments Diagnosis IGG Routine 09/09/2020 11:08 Double-outlet right Resu lts for this AM CDT ventricle with procedure are in ventricular septal the resul ts defect section. CBC WITH PLATELETS & Routine 09/09/2020 11:08 Double-outlet ri ght Results for this DIFFERENTIAL AM CDT ventricle with procedure are in ventricular septal the resul ts defect section. TSH WITH FREE T4 Routine 09/09/2020 11:08 Double-outlet right Results for this REFLEX AM CDT ventricle with procedure are in ventricular septal the resul ts defect section. COMPREHENSIVE Routine 09/09/2020 11:08 Double-outlet right Res ults for this METABOLIC PANEL AM CDT ventricle with procedure are in ventricular septal the resul ts defect section. documented in this encounter Results Comprehensive metabolic panel (09/09/2020 11:08 AM CDT) P athologist Signature Sodium 140 133 - 144 09/09/2020 [facility] mmol/L 11:46 AM CDT [facility] Potassium 3.8 3.4 - 5.3 09/09/2020 [facility] mmol/L 11:46 AM CDT [facility] Chloride 108 94 - 109 09/09/2020 [facility] mmol/L 11:46 AM CDT [facility] Carbon Dioxide 28 20 - 32 09/09/2020 [facility] mmol/L 11:46 AM CDT [facility] Anion Gap 4 3 - 14 09/09/2020 [facility] mmol/L 11:46 AM CDT [facility] Glucose 96 70 - 99 09/09/2020 [facility] mg/dL 11:46 AM CDT [facility] Urea Nitrogen 19 7 - 30 09/09/2020 [facility] mg/dL 11:46 AM CDT [facility] Creatinine 0.96 0.66 - 09/09/2020 [facility] 1.25 mg/dL 11:46 AM [facility] GFR Estimate >90 >60 09/09/2020 [facility] mL/min/{1. 11:46 AM [facility] 73_m2} [facility] Comment: Non GFR Calc Starting 06/03/2018, serum creatinine ba sed estimated GFR (eGFR) will be calculated using the Chronic Kidney Dise [facility] Epidemiology Collaboration (CKD-EPI) equation. GFR Estimate If >90 >60 mL/min/{1.73_m2} 09/09/2020 11 :46 AM [facility] Black [facility] Comment: GFR Calc Starting 06/03/2018, serum creatinine ba sed estimated GFR (eGFR) will be calculated using the Chronic Kidney Dise [facility] Epidemiology Collaboration (CKD-EPI) equation. Calcium 9.6 8.5 - 10.1 mg/dL 09/09/2020 11:46 AM [facility] Bilirubin Total 1.1 0.2 - 1.3 mg/dL 09/09/2020 11:46 A M [facility] Albumin 4.6 3.4 - 5.0 g/dL 09/09/2020 11:46 AM [facility] Protein Total 8.2 6.8 - 8.8 g/dL 09/09/2020 11:46 AM [facility] Alkaline Phosphatase 72 40 - 150 U/L 09/09/2020 11:46 AM [facility] ALT 25 0 - 70 U/L 09/09/2020 11:46 AM [facility] AST 15 0 - 45 U/L 09/09/2020 11:46 AM [facility] Specimen Anatomical Collection Method Collection Time Receive d Time (Source) Location / / Volume Laterality Blood specimen 09/09/2020 11:08 1 (specimen) AM CDT 11:11 AM CDT Cordell Juarez MD LAB - BLOOD ORDERABLES Performing Organization Address City/State/ZIP Code Phon e Number [place] [phone] [facility] CBC with platelets differential (09/09/2020 11:08 AM [facility]) [facility] Method Time Signature WBC 5.3 4.0 - 09/09/2020 [facility] 11.0 11:15 AM [place] 10e9/L [facility] RBC Count 5.64 4.4 - 5.9 09/09/2020 [facility] 10e12/L 11:15 AM [facility] Hemoglobin 16.3 13.3 - 09/09/2020 [facility] 17.7 g/dL 11:15 AM [facility] Hematocrit 49.8 40.0 - 09/09/2020 [facility] 53.0 % 11:15 AM [facility] MCV 88 78 - 100 09/09/[address] [facility] 11:15 AM [facility] MCH 28.9 26.5 - 09/09/2020 [facility] 33.0 pg 11:15 AM [facility] MCHC 32.7 31.5 - 09/09/2020 [facility] 36.5 g/dL 11:15 AM [facility] RDW 12.5 10.0 - 09/09/2020 [facility] 15.0 % 11:15 AM [facility] Platelet Count 175 150 - 450 09/09/2020 [facility] 10e9/L 11:15 AM [facility] Diff Method Automated 09/09/2020 [facility] 11:15 AM [facility] % Neutrophils 66.6 % 09/09/2020 [facility] 11:15 [facility] [place] % Lymphocytes 23.4 % 09/09/2020 [facility] 11:15 [facility] % Monocytes 8.6 % 09/09/2020 [facility] 11:15 AM [facility] % Eosinophils 0.8 % 09/09/2020 [facility] 11:15 [facility] [place] % Basophils 0.6 % 09/09/2020 [facility] 11:15 AM [facility] % Immature 0.0 % 09/09/2020 [facility] Granulocytes 11:15 AM [facility] Nucleated RBCs 0 0 /100 09/09/2020 [facility] 11:15 AM [facility] Absolute 3.5 1.6 - 8.3 09/09/2020 [facility] Neutrophil 10e9/L 11:15 AM [facility] Absolute 1.2 0.8 - 5.3 09/09/2020 [facility] Lymphocytes 10e9/L 11:15 AM [facility] Absolute 0.5 0.0 - 1.3 09/09/2020 [facility] Monocytes 10e9/L 11:15 AM [facility] Absolute 0.0 0.0 - 0.7 09/09/2020 [facility] Eosinophils 10e9/L 11:15 AM [facility] Absolute 0.0 0.0 - 0.2 09/09/2020 [facility] Basophils 10e9/L 11:15 AM [facility] Abs Immature 0.0 0 - 0.4 09/09/2020 [facility] Granulocytes 10e9/L 11:15 AM [facility] Absolute 0.0 09/09/2020 [facility] Nucleated RBC 11:15 AM [facility] Specimen Anatomical Collection Method Collection Time Receive d Time (Source) Location / / Volume Laterality Blood specimen 09/09/2020 11:08 (specimen) AM CDT 11:11 AM CDT Cordell Juarez MD LAB - BLOOD ORDERABLES Performing Organization Address City/State/ZIP Code Phon e Number [address] [address] [facility] TSH with free T4 reflex (09/09/2020 11:08 AM CDT) P athologist Signature TSH 2.83 0.40 - 4.00 09/09/2020 [facility] mU/L 11:46 AM T [facility] Specimen Anatomical Collection Method Collection Time Receive d Time (Source) Location / / Volume Laterality Blood specimen 09/09/2020 11:08 1 (specimen) AM CDT 11:11 AM CDT Cordell Juarez MD LAB - BLOOD ORDERABLES Performing Organization Address City/State/ZIP Code Phon e Number [facility] [address] [place] [address] [facility] IgG (09/09/2020 11:08 AM CDT) P athologist Signature IGG 1,437 610 1616 09/12/2020 [facility] mg/dL 9:24 AM CDT [facility] Specimen Anatomical Collection Method Collection Time Receive d Time (Source) Location / / Volume Laterality Blood specimen 09/09/2020 11:08 1 (specimen) AM CDT 11:11 AM CDT Cordell Juarez MD LAB - BLOOD ORDERABLES Performing Organization Address City/[facility]/ZIP Code Phon e Number [facility] [address] [place] [id number] [place] [address] documented in this encounter Visit Diagnoses Diagnosis 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
--- OUTSIDE RECORDS SUMMARY | 2022-04-10 09:52 | XMS_ITS | Encounter Summary ---
:2000 Author Organization [place] Address [facility] [place] [address] Care Team Providers Name Role Phone Magnus Zayas DO Primary Care Provider [phone] Magnus Zayas DO Unavailable [phone] Magda Winchester MD Primary Care Provider Reason for Visit Reason Comments Medication Refill Encounter Details Date Type Department Care Team Description 03/14/2021 Refill [facility] Cordell Juarez MD Medication Refill Pediatric Specialty [facility] [address] [address] [facility] E [place] [facility] [address] [place] [address] Social History Tobacco Use Types Packs/Day Years [...] Ancillary Procedure Cardiology Cordell Juarez MD [address] [facility] [address] [place], [place] [address] (Wo rk) 07/27/2022 Office Visit Cardiology Cordell Juarez MD [address] [place], [place] [address] (Wo rk) documented as of this encounter Visit Diagnoses Diagnosis 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 Other postprocedural status Palpitations Tachycardia Tachycardia, unspecified documented in this encounter Additional Health Concerns Assessment Noted Time PHQ-9 Depression Total Score: 10 04/01/2019 9:14 AM CD T documented as of this encounter Care Teams Cycle Director Relationship Specialty Start Date End Date Magnus Zayas, PCP - General Student in organized 02/23/20 09/17/[address] education/training program [address] [place], [place] [address] Magda Winchester PCP - General Family Medicine 09/18/21 MD [place] Magnus aZyas, Assigned PCP 11/20/[address] [place] [address] documented as of this encounter
--- OUTSIDE RECORDS SUMMARY | 2022-04-10 09:52 | XMS_ITS | Encounter Summary ---
:2000 Author Organization [place] Address [facility] [place] [address] Care Team Providers Name Role Phone Magnus Zayas DO Primary Care Provider [phone] Magnus Zayas DO Unavailable [phone] Encounter Details Date Type Department Care Team Description 03/10/2021 Travel Social History Tobacco Use Types Packs/Day [...] 07/27/2022 Ancillary Procedure Cardiology Cordell Juarez MD [facility] [address] [place] [address] (Wo rk) 07/27/2022 Office Visit Cardiology Cordell Juarez MD [address] [place] [address] (Wo rk) documented as of this encounter Visit Diagnoses Not on filedocumented in this encounter Additional Health Concerns Assessment Noted Time PHQ-9 Depression Total Score: 10 04/01/2019 9:14 AM CD T documented as of this encounter Care Teams Guest Experience Captain Relationship Specialty Start Date End Date Magnus Zayas, PCP - General Student in organized 02/23/20 09/17/[address] education/training program [address] [place], [place] [phone] Magnus Zayas, Assigned PCP 11/20/[address] [place], [place] [address] documented as of this encounter
--- OUTSIDE RECORDS SUMMARY | 2022-04-10 09:52 | XMS_ITS | Encounter Summary ---
:2000 Author Organization [place] Address [address] [facility] 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) Cordell Juarez MD Procedures Cardiopulmonary Stress Test - Adult [address] [place] [id number] Referral ID Status Reason Start Date Expiration Date Visits Requ ested Visits Authorized [id number] Closed 03/10/2021 03/10/2022 1 1 Reason for Visit CV Testing (Routine) - Closed Specialty Diagnoses / Procedures Referred By Contact Refer red To Contact Diagnoses 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) Cordell Juarez MD Procedures Cardiopulmonary Stress Test - Adult [address] [place] [address] 4 Referral ID Status Reason Start Date Expiration Date Visits Requ ested Visits Authorized [id number] Closed 03/10/2021 03/10/2022 1 1 Encounter Details Date Type Department Care Team Description 09/26/2021 Hospital Encounter [facility] Larry, Cordell Barajas , 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; Imani D-TGA (dextro-transposition of great art eries) [place] [id number] [facility] [address] [place] [address] [phone] Social History Tobacco Use Types Packs/Day Years [...] Sign Reading Time Taken Comments Blood Pressure 120/86 09/26/2021 11:34 AM CDT Pulse - - Temperature - - Respiratory Rate - - Oxygen Saturation - - Inhaled Oxygen Concentration - - Weight 62 kg (136 lb 11 oz) 09/26/2021 11:34 AM CDT Height 163.3 cm (5' 4.29) 09/26/2021 11:34 AM CDT Body Mass Index 23.25 09/26/2021 11:34 AM CDT documented in this encounter Medications at Time of Discharge Medication Sig Dispensed Refills Start Date End Date amoxicillin (AMOXIL) 500 Take 4 capsules 20 capsule 3 2018 MG capsuleIndications: (2,000 mg) by mouth S/P Fontan procedure as needed (one hour prior to dental cleanings) furosemide (LASIX) 20 MG Take 0.5 tablets (10 45 tablet 3 1 tabletIndications: S/P mg) by mouth daily Fontan procedure montelukast (SINGULAIR) Take 1 tablet (10 90 tablet 3 03/17 10 MG tabletIndications: mg) by mouth daily S/P Fontan procedure, Hypoplastic left heart syndrome, Palpitations omeprazole (PRILOSEC) 20 Take 1 capsule ([address] mg) by mouth daily capsuleIndications: Chest pain, unspecified type sertraline (ZOLOFT) 25 TAKE 1 TABLET (25 60 tablet 0 2019 MG tabletIndications: MG) BY MOUTH DAILY Moderate episode of IF TOLERATING recurrent major MEDICINE AFTER 2 depressive disorder (H) WEEKS, CAN INCREASE TO 2 TABLETS (50 MG) DAILY sildenafil (REVATIO) 20 Take 1 tablet (20 90 tablet 11 09/28 MG tabletIndications: mg) by mouth three 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 Never use with nitroglycerin, terazosin or doxazosin. spironolactone Take 1 tablet (25 90 tablet 3 03/17/2021 (ALDACTONE) 25 MG mg) by mouth daily tabletIndications: Hypoplastic left heart syndrome traZODone (DESYREL) 50 TAKE ONE TABLET BY 0 08/01 MG tablet MOUTH ONE TIME DAILY AT BEDTIME digoxin (LANOXIN) 250 Take 1 tablet (250 90 tablet 0 202010/05/2021 MCG tabletIndications: mcg) by mouth daily SVT (supraventricular tachycardia) (H) omeprazole (PRILOSEC) 20 TAKE ONE CAPSULE BY 90 capsule 3 09/28/[address] MOUTH ONE TIME DAILY capsuleIndications: Chest pain, unspecified type sildenafil (REVATIO) 20 Take 1 tablet (20 90 tablet 11 11/1909/28/2021 MG tabletIndications: mg) by mouth three 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 Never use with nitroglycerin, terazosin or doxazosin. documented as of this encounter Plan of Treatment Upcoming Encounters Date Type Specialty Care Team Description 07/27/2022 Ancillary Procedure Cardiology Larry, Cordell Barajas MD [address] [address] (Wo rk) 07/27/2022 Office Visit Cardiology Larry, Cordell skelton MD 2450 [facility] [place] [address] (Wo rk) documented as of this encounter Procedures Procedure Name Priority Date/Time Associated Comments Diagnosis CARDIOPULMONARY STRESS Routine 09/26/2021 11:34 Double-outlet right Results for this TEST - ADULT AM CDT ventricle with procedure are in ventricular septal the resul ts defect section. D-TGA (dextro-transpositi on of great arteries) documented in this encounter Results CARDIOPULMONARY STRESS TEST - ADULT (09/26/2021 11:34 [...] VO2MAX 42.7 Max 22,518 CARPULSTRPH1 3 mins [id number] 0 sec CARPULSTRPH1 83 bpm CARPULBPPH1 125/85 mmHg CARPULSTRPH1 95 % SpO2 CARPULSTRPH2 6 mins [id number] 0 sec CARPULSTRPH2 96 bpm CARPULBPPH2 130/80 mmHg CARPULSTRPH2 94 % SpO2 CARPULSTRPH3 9 mins [id number] 0 sec CARPULSTRPH3 120 bpm CARPULBPPH3 130/77 mmHg CARPULSTRPH3 94 % SpO2 CARPULSTRPH4 12 mins [id number] 0 sec CARPULSTRPH4 135 bpm CARPULBPPH4 122/75 mmHg CARPULSTRPH4 94 % SpO2 CARPULSTRPH5 12 mins [id number] 37 sec CARPULSTRPH5 162 bpm CARPULBPPH5 139/69 mmHg CARPULSTRPH5 93 % SpO2 CARPULSTRPB1 1 mins [id number] 0 sec CARPULSTRPHB1 139 bpm CARPULBPPHB1 125/69 mmHg CARPULSTRPHB1 93 % SpO2 CARPULSTRPHB2 3 mins [id number] 0 sec CARPULSTRPHB2 124 bpm CARPULBPPHB2 120/72 mmHg CARPULSTRPHB2 94 % SpO2 CARPULSTRPHB3 5 mins [id number] 0 sec CARPULSTRPHB3 97 bpm CARPULBPPHB3 118/80 mmHg CARPULSTRPHB3 96 % SpO2 Max 29.50 ml/kg/m in Predicted 42.70 ml/kg/m in Percent 69 % RER 1.05 VE/VCO2 [place] 28.82 CARPULANEROBICTHRES 23.60 ml/kg/m in CARPULANAEROBICTHRESPERDICTED 55.0 [...] documented as of this encounter Care Teams Drawer Maker Relationship Specialty Start Date End Date Magda Winchester, PCP - General Family Medicine Magnus Zayas, Assigned PCP 11/20/[address] [place] [address] [address] [place] [address] documented as of this encounter
--- OUTSIDE RECORDS SUMMARY | 2022-04-10 09:52 | XMS_ITS | Encounter Summary ---
:2000 Author Organization [place] Address 2450 [facility] [place] [address] Care Team Providers Name Role Phone Magnus Zayas DO Unavailable [phone] Magda Winchester MD Primary Care Provider Encounter Details Date Type Department Care Team Description 09/23/2021 Travel Social History Tobacco Use Types Packs/Day [...] been in contact with No / Unsure 09/23/2021 12:39 PM CDT someone who was confirmed or suspected to have Coronavirus / COVID-19? documented as of this encounter Plan of Treatment Upcoming Encounters Date Type Specialty Care Team Description 07/27/2022 Ancillary Procedure Cardiology Cordell Juarez MD 2450 [facility]556 [place], [place] [address] (Wo rk) 07/27/2022 Office Visit Cardiology Cordell Juarez MD [address] [place] [address] (Wo rk) documented as of this encounter Visit Diagnoses Not on filedocumented in this encounter Additional Health Concerns Assessment Noted Time PHQ-9 Depression Total Score: 10 04/01/2019 9:14 AM CD T documented as of this encounter Care Teams Textile Machine Mechanic Relationship Specialty Start Date End Date Magda Winchester, PCP - General Family Medicine Magnus Zayas, DO Assigned PCP 11/20/[address] [place] [address] 284 [place], [place] [address] documented as of this encounter
--- OUTSIDE RECORDS SUMMARY | 2022-04-10 09:52 | XMS_ITS | Encounter Summary ---
:2000 Author Organization [place] Address [facility] [place] [address] Care Team Providers Name Role Phone Magnus Zayas DO Primary Care Provider Magnus Zayas DO Unavailable [phone] Reason for Visit Reason Comments Medication Refill Encounter Details Date Type Department Care Team Description 01/03/2021 Refill [facility] Cordell Juarez MD Medication Refill [facility] [address] [place] [address] [place] [address] Explorer Clinic [address] [place] [address] [place] [address] Social History Tobacco Use Types Packs/Day Years [...] Ancillary Procedure Cardiology Cordell Juarez MD [address] [place] [address] (Wo rk) 07/27/2022 Office Visit Cardiology Larry, Cordell skelton MD [address] [place] [address] (Wo rk) documented as of this encounter Visit Diagnoses Diagnosis SVT (supraventricular tachycardia) (H) Other specified cardiac dysrhythmias documented in this encounter Additional Health Concerns Assessment Noted Time PHQ-9 Depression Total Score: 10 04/01/2019 9:14 AM CD T documented as of this encounter Care Teams Supervisor Painting Department Relationship Specialty Start Date End Date Magnus Zayas, PCP - General Student in organized 02/23/20 09/17/[address] education/training program 284 [place], [place] [address] Magnus Zayas, Assigned PCP 11/20/[address] [place] [address] documented as of this encounter
--- OUTSIDE RECORDS SUMMARY | 2022-04-10 09:52 | XMS_ITS | Encounter Summary ---
:2000 Author Organization [place] Address [facility] [place] [address] Care Team Providers Name Role Phone Magnus Zayas DO Primary Care Provider Magnus Zayas DO Unavailable [phone] Encounter Details Date Type Department Care Team Description 05/06/2021 Telephone [facility] Pediatric Larry Cordell MD Specialty Clinic [address] [address] [facility] [address] [address] [place] [address] [phone] Social History Tobacco Use Types Packs/Day Years Used Date Smoking Tobacco: Never Smokeless Tobacco: Never Comments: none at home Alcohol Use Standard Drinks/Week Comments No 0 (1 standard drink = 0.6 oz pure alcoho l) Sex Assigned at Date Recorded Male 03/09/2019 1:21 PM CDT documented as of this encounter Miscellaneous Notes Telephone Encounter - Florinda Robb CMA - 05/06/2021 9:45 AM CST LVM for patient to schedule appointment follow up with testing. STANCE WELDING MACHINE OPERATOR documented in this encounter Plan of Treatment Upcoming Encounters Date Type Specialty Care Team Description 07/27/2022 Ancillary Procedure Cardiology Cordell Juarez MD [address] [place] [address] [place] [address] (Wo rk) 07/27/2022 Office Visit Cardiology Cordell Juarez MD 2450 [facility] [address] [place] [address] (Wo rk) documented as of this encounter Visit Diagnoses Not on filedocumented in this encounter Additional Health Concerns Assessment Noted Time PHQ-9 Depression Total Score: 10 04/01/2019 9:14 AM CD T documented as of this encounter Care Teams Tube Worker Relationship Specialty Start Date End Date Magnus Zayas, PCP - General Student in organized 02/23/20 09/17/[address] education/training program [address] [place] [address] Magnus Zayas, Assigned PCP 11/20/[address] [address] documented as of this encounter
--- OUTSIDE RECORDS SUMMARY | 2022-04-10 09:52 | XMS_ITS | Encounter Summary ---
:2000 Author Organization [place] Address [facility] [place] [address] Care Team Providers Name Role Phone Magnus Zayas DO Primary Care Provider Magnus Zayas DO Unavailable Reason for Visit CV Testing (Routine) - Closed Specialty Diagnoses / Procedures Referred By Contact Refer red To Contact Diagnoses Palpitations Cordell Juarez MD Procedures Holter Monitor 48 hour Adult Pediatric ZZC AMB BP MONITORING W/SW >=24 HR, RECORD/SCAN/INTRP/RPT ZZ[facility] HOLTER RECORDING 24 HRS ZZHC HOLTER SCAN 24 HRS AK HOLTER RECORDING 24 HRS AK HOLTER SCAN 24 HRS 2450 [facility] MB[address] [place] AMB BP MONITORING W/SW >= 24 HR, RECORD/SCAN/INTRP/RPT HOLTER RECORDING 24 HRS HC HOLTER SCAN 24 HRS, [place] [address] Referral ID Status Reason Start Date Expiration Date Visits Requ ested Visits Authorized [id number] Closed 09/09/2020 09/09/2021 1 1 Encounter Details Date Type Department Care Team Description 09/09/2020 Ancillary Procedure [facility] Cordell Juarez, Palpitations Heart Clinic Marie DUPREE [address] [facility] 2450 [facility] [address] [facility] [place] [address] [phone] (Wo rk) Social History Tobacco Use Types [...] 07/27/2022 Ancillary Procedure Cardiology Cordell Juarez MD [address] [place] [id number] (Wo rk) 07/27/2022 Office Visit Cardiology Cordell Juarez MD [address] [place] [phone] (Wo rk) documented as of this encounter Procedures Procedure Name Priority Date/Time Associated Diagnosis Comme nts HOLTER MONITOR 48 HOUR Routine 09/09/2020 10:58 Palpitations R esults for this APPLICATION SCAN AM CDT procedure a re in ANALYSIS AND PROVIDER the re sults INTERPRETATION section. documented in this encounter Results HOLTER MONITOR 48 HOUR APPLICATION SCAN ANALYSIS AND PROVIDER INTERPRETATION (09/09/2020 10:58 AM CDT) Anatomical Region Laterality Modality Other Specimen (Source) Anatomical Collection Method Collection Time Re ceived Time Location / / Volume Laterality 09/09/2020 10:56 AM CDT Cordell Juarez MD CV CARDIAC SERVICES ORDERABL ES documented in this encounter Visit Diagnoses Diagnosis Palpitations documented in this encounter Additional Health Concerns Assessment Noted Time PHQ-9 Depression Total Score: 10 04/01/2019 9:14 AM CD T documented as of this encounter Care Teams Coffee Taster Relationship Specialty Start Date End Date Magnus Zayas, PCP - General Student in organized 02/23/20 09/17/[address] education/training program 284 [place], [place] [address] Magnus Zayas, Assigned PCP 02/28/2004/[address] [place], [place] [address] documented as of this encounter
--- OUTSIDE RECORDS SUMMARY | 2022-04-10 09:52 | XMS_ITS | Encounter Summary ---
:2000 Author Organization [place] Address [facility] [place] [address] Care Team Providers Name Role Phone Magnus Zayas DO Primary Care Provider [phone] Magnus Zayas DO Unavailable [phone] Encounter Details Date Type Department Care Team Description 11/23/2020 Telephone [facility] Cordell Lee MD Pediatric Specialty Clinic [address] [place] [address] 2450 [place] [address] [facility] [place] [phone] Social History Tobacco Use Types Packs/Day Years Used Date Smoking Tobacco: Never Smokeless Tobacco: Never Comments: none at home Alcohol Use Standard Drinks/Week Comments No 0 (1 standard drink = 0.6 oz pure alcoho l) Sex Assigned at Date Recorded Male 03/09/2019 1:21 PM CDT documented as of this encounter Miscellaneous Notes Telephone Encounter - Arthur Limon RN - 11/25/2020 1:28 PM CDT Call placed to Jude to 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 He think thathe just needs Dr Juarez to sign his form saying that it is ok. Provided fax number to patient, discussed that I will review with Dr Juarez and call if we have further questions. Jude states that he understands information provided. 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 Dr. Juarez does not have anything available until March. Patient is seen at [facility] with Dr. Juarez, unsure if patient will need to call that office. Please call patient back at [phone]. documented in this encounter Plan of Treatment Upcoming Encounters Date Type Specialty Care Team Description 07/27/2022 Ancillary Procedure Cardiology Cordell Juarez MD 2450 [facility]556 [place] [address] (Wo rk) 07/27/2022 Office Visit Cardiology Cordell Juarez MD 2450 [facility]556 [place] [address] (Wo rk) documented as of this encounter Visit Diagnoses Not on filedocumented in this encounter Additional Health Concerns Assessment Noted Time PHQ-9 Depression Total Score: 10 04/01/2019 9:14 AM CD T documented as of this encounter Care Teams Open Source Developer Relationship Specialty Start Date End Date Magnus Zayas, PCP - General Student in organized 02/23/20 09/17/[address] education/training program 284 [place], [place] [address] Magnus Zayas, Assigned PCP 11/20/[address] [place] [address] documented as of this encounter
--- OUTSIDE RECORDS SUMMARY | 2022-04-10 09:53 | XMS_ITS | Encounter Summary ---
:2000 Author Organization [place] Address [address] [place] [address]. [place] [address] Care Team Providers Name Role Phone Clinic, [facility] Primary Care Provider [phone] Encounter Details Date Type Department Care Team Description 12/30/2019 Orders [facility] Lorena Reed SVT ([facility] Explorer etcher electrolytic mariluz rodriguez) (H) Specialty Clinic [address] [place] [address] [address] [place] [address] Social History Tobacco Use Types Packs/Day Years Used Date Smoking Tobacco: Never Smokeless Tobacco: Never Comments: none at home Alcohol Use Standard Drinks/Week Comments No 0 (1 standard drink = 0.6 oz pure alcoho l) Sex Assigned at Date Recorded Male 03/09/2019 1:21 PM CDT COVID-19 Exposure Response Date Recorded In the last month, have you been in contact with Yes 12/18/2019 8:50 PM CDT someone who was confirmed or suspected to have Coronavirus / COVID-19? documented as of this encounter Plan of Treatment Upcoming Encounters Date Type Specialty Care Team Description 07/27/2022 Ancillary Procedure Cardiology Larry, Cordell Barajas MD [address] [place], [place] [address] [place] [address] (Wo rk) 07/27/2022 Office Visit Cardiology Larry, Cordell skelton MD 2450 [facility] [place] [address] (Wo rk) documented as of this encounter Visit Diagnoses Diagnosis SVT (supraventricular tachycardia) (H) Other specified cardiac dysrhythmias documented in this encounter Additional Health Concerns Assessment Noted Time PHQ-9 Depression Total Score: 10 04/01/2019 9:14 AM CD T documented as of this encounter Care Teams Linseed Oil Refiner Relationship Specialty Start Date End Date Clinic, [facility] PCP - General 06/25/19 02/22/20 [address] [place] [address] documented as of this encounter
--- OUTSIDE RECORDS SUMMARY | 2022-04-10 09:53 | XMS_ITS | Encounter Summary ---
:2000 Author Organization [place] Address [address] [place] [address] Care Team Providers Name Role Phone Magnus Zayas DO Primary Care Provider [phone] Magnus Zayas DO Unavailable [phone] Reason for Visit Reason Onset Date Comments Refill Request 04/04/2020 sertraline (ZOLOFT) 25 MG tablet Encounter Details Date Type Department Care Team Description 04/04/2020 Refill [facility] LogCeleste milan MD Refill Request Internal Medicine [address] [place] [address] (sertr timmy (ZOLOFT) [address] [place] MG tablet) [address] [place] [address] (Wo rk) [address] [phone] Social History Tobacco Use Types Packs/Day Years Used Date Smoking Tobacco: Never Smokeless Tobacco: Never Comments: none at home Alcohol Use Standard Drinks/Week Comments No 0 (1 standard drink = 0.6 oz pure alcoho l) Sex Assigned at Date Recorded Male 03/09/2019 1:21 PM CDT COVID-19 Exposure Response Date Recorded In the last month, have you been in contact with No / Unsure 03/17/2020 1:38 PM CDT someone who was confirmed or suspected to have Coronavirus / COVID-19? documented as of this encounter Miscellaneous Notes Telephone Encounter - Pastora Limon RN - 04/05/2020 2:50 PM CDT sertraline (ZOLOFT) 25 MG tablet Last Written Prescription Date: 02/23/20 Last Fill Quantity: 60, # refills: 1 Last Office Visit : 02/23/20 Future Office visit: None RTC in 4-6 weeks to eval effectiveness and side effect Scheduling has been notified to contact the pt for appointment. Routing refill request to provider for review/approval because: phq9. documented in this encounter Plan of Treatment Upcoming Encounters Date Type Specialty Care Team Description 07/27/2022 Ancillary Procedure Cardiology Cordell Juarez MD [address] [facility] [address] [place], [place] [address] (Wo rk) 07/27/2022 Office Visit Cardiology Cordell Juarez MD [address] [place] [address] [place], [place] [address] (Wo rk) documented as of this encounter Visit Diagnoses Diagnosis Moderate episode of recurrent major depr essive disorder (H) documented in this encounter Additional Health Concerns Assessment Noted Time PHQ-9 Depression Total Score: 10 04/01/2019 9:14 AM CD T documented as of this encounter Care Teams Conveyor Worker Relationship Specialty Start Date End Date Magnus Zayas, PCP - General Student in organized 02/23/20 09/17/[address] education/training program 284 [place], [place] [address] Magnus Zayas, Assigned PCP 02/28/2004/[address] [place], [place] [address] documented as of this encounter
--- OUTSIDE RECORDS SUMMARY | 2022-04-10 09:53 | XMS_ITS | Encounter Summary ---
:2000 Author Organization [place] Address [facility]. [address] Care Team Providers Name Role Phone Magnus Zayas DO Primary Care Provider [phone] Magnus Zayas DO Unavailable [phone] Celeste Scales MD Unavailable Magnus Zayas DO Unavailable [phone] Magda Winchester MD Primary Care Provider Encounter Details Date Type Department Care Team Description 03/03/2020 Telephone [facility] Cordell Juarez MD [address] [place] [address] [place] [phone] Social History Tobacco Use Types Packs/Day [...] been in contact with No / Unsure 03/02/2020 10:17 AM CDT someone who was confirmed or suspected to have Coronavirus / COVID-19? documented as of this encounter Miscellaneous Notes Telephone Encounter - ChapitoPolly Vinay - 03/03/2020 9:10 AM CDT Spoke to: Left barry Roque Relayed: Needing to schedule stress test Scheduled on: TBD Polly Uriarte Procedural Coordinator Pediatric Cardiology documented in this encounter Plan of Treatment Upcoming Encounters Date Type Specialty Care Team Description 07/27/2022 Ancillary Procedure Cardiology Cordell Juarez MD 2450 [facility] [address] [place] [address] (Wo rk) 07/27/2022 Office Visit Cardiology Cordell Juarez MD [address] [place] [address] (Wo rk) documented as of this encounter Visit Diagnoses Not on filedocumented in this encounter Additional Health Concerns Assessment Noted Time PHQ-9 Depression Total Score: 10 04/01/2019 9:14 AM CD T documented as of this encounter Care Teams Igniter Capper Relationship Specialty Start Date End Date Magnus Zayas, PCP - General Student in organized 02/23/20 09/17/[address] education/training program 284 [place], [place] [address] Magda Winchester PCP - General Family Medicine 09/18/21 MD [place] Magnus Zayas, Assigned PCP 02/28/2004/[address] [place], [place] [address] Celeste Scales MD Assigned PCP 11/10/20 11/19/[address] [address] Magnus Zayas, Assigned PCP 11/20/20 DO [address] [facility] 284 [place] [address] documented as of this encounter
--- OUTSIDE RECORDS SUMMARY | 2022-04-10 09:53 | XMS_ITS | Encounter Summary ---
:2000 Author Organization [facility] Address [address] [place] [address]. [place] [address] Care Team Providers Name Role Phone Magnus Zayas DO Primary Care Provider [phone] Magnus Zayas DO Unavailable [phone] Reason for Visit CV Testing (Routine) - Closed Specialty Diagnoses / Procedures Referred By Contact Refer red To Contact Diagnoses S/P Fontan procedure Bradycardia Cordell Juarez MD Procedures Holter Monitor 48 hour Adult Pediatric C AMB BP MONITORING W/SW >=24 HR, RECORD/SCAN/INTRP/RPT HC HOLTER RECORDING 24 HRS HC HOLTER SCAN [address] [place] [address] 2648 4 Referral ID Status Reason Start Date Expiration Date Visits Requ ested Visits Authorized [id number] Closed 03/02/2020 03/02/2021 1 1 Encounter Details Date Type Department Care Team Description 03/02/2020 Ancillary [facility] Cordell Juarez, S/P Fontan procedure; Procedure [facility] [address] [place] [address] [facility] [address] 12th [address] [place] [address] [place], [place] (Work) [address] [phone] Social History Tobacco Use Types Packs/Day Years [...] 07/27/2022 Ancillary Procedure Cardiology Cordell Juarez MD [facility] [address] [address] (Wo rk) 07/27/2022 Office Visit Cardiology Cordell Juarez MD [facility] [place] [address] [address] (Wo rk) documented as of this encounter Procedures Procedure Name Priority Date/Time Associated Diagnosis Comme nts HOLTER MONITOR 48 HOUR Routine 03/02/2020 11:00 AM S/P F ontan procedure APPLICATION SCAN ANALYSIS CDT Bradycardia AND PROVIDER INTERPRETATION documented in this encounter Results HOLTER MONITOR 48 HOUR APPLICATION SCAN ANALYSIS AND PROVIDER INTERPRETATION (03/02/2020 11:00 AM CDT) Anatomical Region Laterality Modality Cardiac Electrophysi ology Specimen (Source) Anatomical Collection Method Collection Time Re ceived Time Location / / Volume Laterality 03/02/2020 10:55 AM CDT Cordell Juarez MD CV CARDIAC SERVICES ORDERABL ES documented in this encounter Visit Diagnoses Diagnosis S/P Fontan procedure Other postprocedural status Bradycardia Other specified cardiac dysrhythmias documented in this encounter Additional Health Concerns Assessment Noted Time PHQ-9 Depression Total Score: 10 04/01/2019 9:14 AM CD T documented as of this encounter Care Teams Couples Therapist Relationship Specialty Start Date End Date Magnus Zayas, PCP - General Student in organized 02/23/20 09/17/21 DO health care [address] [place] [address] education/training program [address] [place], [place] [id number] Magnus Zayas, Assigned PCP 02/28/2004/[address] [place], [place] [address] documented as of this encounter
--- OUTSIDE RECORDS SUMMARY | 2022-04-10 09:53 | XMS_ITS | Encounter Summary ---
:2000 Author Organization [address] [place] [address] Care Team Providers Name Role Phone Arcadio, Ana Collins Primary Care Provider [phone] Magnus Zayas DO Primary Care Provider [phone] aMgnus Zayas DO Unavailable [phone] Reason for Visit Reason Comments RECHECK S/P Fontan procedure Encounter Details Date Type Department Care Team Description 01/13/2020 Office Visit [facility] Cordell Juarez Brad ycardia (Primary Dx); Pediatric Specialty S/P Fontan procedure Clinic [address] [facility] [address] [place] [id number] [phone] Social History Tobacco Use Types Packs/Day Years [...] Sign Reading Time Taken Comments Blood Pressure 107/72 01/13/2020 1:55 PM CDT Pulse 68 01/13/2020 1:55 PM CDT Temperature - - Respiratory Rate 22 01/13/2020 1:55 PM CDT Oxygen Saturation 92% 01/13/2020 1:55 PM CDT Inhaled Oxygen Concentration - - Weight 61.5 kg (135 lb 9.3 oz) 01/13/2020 1:55 PM CDT Height 163.6 cm (5' 4.41) 01/13/2020 1:55 PM CDT Body Mass Index 22.98 01/13/2020 1:55 PM CDT documented in this encounter Patient Instructions Patient InstructionsCordell Juarez MD - 01/13/2020 2:00 PM CDT You were seen today in the Pediatric Cardiology Clinic Cardiology Providers you saw during your visit: Sterling Juarez Chief Complaint: chest pressure, fatigue and loose stools Poor appetite Results: Stable exam, holter pending Recommendations: REduce metoprolol Xl to 1/2 tab daily Stop laxative Improve intake both water and calories Recommended regular daylight work hours. SBE prophylaxis: Yes_X___ No____ Exercise restrictions: Yes___ No_X___ If yes list restrictions: Increase gradually Work restrictions: Yes_x__ No____ If yes list restrictions: Daytime shifts Follow-up: February 16 as scheduled Need to establish primary care Thank you for your visit today. If you have questions about today's visit, please call [facility] at [phone] or [facility] Nurse Line [phone] For after hours urgent needs call [phone] and ask to speak to the Pediatric Cardiology Physician origination specialist. For emergencies call [phone]. documented in this encounter Progress Notes Cordell Juarez MD - 01/13/2020 2:00 PM CDT Pediatric Cardiology Visit Patient: Jude Bills Date of : 2000 Age: 19 yo Date of Visit: Jan 13, 2020 PCP: Stephen Sauceda Dear Dr. Sauceda, I had the pleasure of seeing your patient, Jude Bills, in the Pediatric Cardiology Clinic at [facility] on Jan 13, 2020. 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 He had catheter closure of his Fontan fenestration at the [facility] in January 2007. Jude has had some episodes of atrial tachycardia that improved on metoprolol. He has also been treated for chest pain, LE edema, and exercise intolerance that improved on low dose lasix, sildenafil and omeprazole. Jude was seen in the ED in June of this year for influenza. 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 He is here today for a scheduled follow up visit. Jude is feeling better. 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 He is not yet exercising much and reports that he feels very fatigued and like he has a very slow heart rate. No edema, SOB, sustained arrhythmias, abdominal distension, diarrhea or episodes of bleeding. He is eating and drinking better. He is not on any anticoagulation due to multiple episodes of bleeding (most recently severe psoas hemorrhage in 2018). Jude reports that he is still covered by hisparents insurance and has access to his medications. Jude sees the dentist regulal and uses antibiotic prophylaxis for SBE. 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 Last seen in Ed June 2019 with influenza SH:Jude is attending [employer] and living in an apartment with a roommate. 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 Prescription Medications as of 01/13/2020 Rx Number Disp Refills Start End Last Dispensed Date Next Fill Date Owning Pharmacy acetaminophen (TYLENOL) 500 MG tablet Sig: Take 500 mg by mouth every 8 hours as needed for mild pain Class: Historical Route: Oral amoxicillin (AMOXIL) 500 MG capsule 20 capsule 3 04/01/2019 [facility] [address] [place] [address] Sig: Take 4 capsules (2,000 mg) by mouth as needed (one hour prior to dental cleanings) Class: E-Prescribe Route: Oral digoxin (DIGOX) 250 MCG tablet 90 tablet 3 12/31/2019 [facility] [address] [place] [address] N.E. Sig: Take 1 tablet (250 mcg) by mouth daily Class: E-Prescribe Route: Oral furosemide (LASIX) 20 MG tablet 90 tablet 3 04/01/2019 [facility] [address] [place] [address] Sig: Take 1 tablet (20 mg) by mouth daily Class: E-Prescribe Route: Oral metoprolol succinate ER (TOPROL-XL) 25 MG 24 hr tablet 30 tablet 11 03/24/2019 [facility] [address] [place] [address] Sig: TAKE ONE TABLET BY MOUTH ONE TIME DAILY Class: E-Prescribe montelukast (SINGULAIR) 10 MG tablet 08/28/2018 Sig: Take 10 mg by mouth At Bedtime Class: Historical Route: Oral omeprazole (PRILOSEC) [address] capsule 90 capsule 3 11/04/2019 [facility] [address] [place] [address] Sig: Take 1 capsule (20 mg) by mouth daily Class: E-Prescribe Route: Oral polyethylene glycol (MIRALAX) 17 GM/SCOOP powder 510 g 0 01/11/2020 02/10/2020 Sig: Take 17 g (1 capful) by mouth daily Class: Local Print Route: Oral sildenafil (REVATIO) 20 MG tablet 90 tablet 11 11/20/2019 [facility] [address] [place] [address] N.E. Sig: Take 1 tablet (20 mg) by mouth three times daily for pulmonary hypertension. Never use with nitroglycerin, terazosin or doxazosin. Class: E-Prescribe spironolactone (ALDACTONE) 25 MG tablet 30 tablet 0 12/29/2019 [facility] [place] - [address] [facility] N.E. Sig: TAKE ONE TABLET BY MOUTH ONE TIME DAILY Class: E-Prescribe valACYclovir (VALTREX) 1000 mg tablet 8 tablet 0 12/28/2019 01/01/2020 [place], [place] - [address] Sig: Take 1 tablet (1,000 mg) by mouth every 12 hours for 4 days Class: E-Prescribe Route: Oral Taking 20 mg lasix daily FH: Luke is adopted. No FH known. PE: His height is 1.636 m (5' 4.41) and weight is 61.5 kg (135 lb 9.3 oz). His blood pressure is 107/72 and his pulse is 68. His respiration is 22 and oxygen saturation is 92%. His body mass index is 22.98 kg/m??. His body surface area is 1.67 meters squared. In general, he is a very well-appearing young man with no central or peripheral cyanosis. Head and neck examination is unremarkable. Pupils are reactive and sclera are not jaundiced. There is no conjunctival injection or discharge. Mucous membranes are pink and moist. Dentition appears healthy.. Neck is supple. Lungs are clear to auscultationbilaterally. He has a well-healed midline sternotomy scar with a normal S1 and a single S2. He has a grade 2/6 systolic ejection murmur at the left upper sternal border, and no rubs, gallops or diastolic murmurs. Abdominal examination is benign with no hepatosplenomegaly or masses. Radial and femoral pulses are normal and LE extremities are warm and well perfused with no edema and good capillary refill. He is oriented and responsive. He moves all extremities equally with normal tone. Echo Jun 2019: Double outlet right ventricle, transposition of the great arteries (d-TGA) and a large anterior malalignment ventricular septal defect after fenestrated Fontan operation. Previous device closure of Fontan fenestration. The Fontan fenestration device is in good position. There is laminar phasic color flow in the Fortino shunt. The right ventricle has normal contractility. Upper mild tricuspid valve insufficiency. There is unobstructed flow in both branch pulmonary arteries. There is no diastolic runoff in the abdominal aorta. No pericardial effusion. No significant change from last echocardiogram. MRI 05/2019: Double outlet right ventricle, transposition of the great arteries (d-TGA) and a large anterior malalignment ventricular septal defect after fenestrated Fontan operation. Previous device closure of Fontan fenestration. The Fontan fenestration device is in good position. There is laminar phasic color flow in the Fortino shunt. The right ventricle has normal contractility. Upper mild tricuspid valve insufficiency. There is unobstructed flow in both branch pulmonary arteries. There is no diastolic runoff in the abdominal aorta. No pericardial effusion. No significant change from last echocardiogram. 5 day zio patch monitor January 2019 with average HR 67 bpm, range 36-167 rare isolated ectopy. Transient ventricular trigeminy. 12 lead ECG today: sinus rhythm at 60 bpm. Mild IVCD. RVH with lateral T wave inversion. No significant changes from prior ECG's Cath Data 01/2016: Fontan pressures 14 mean, PAP 14 mean LV EDP 10 CI 3.1 L/min/m2. CXR 04/28, no acute changes. Fractured inferior sternal wire. Labs: Component Value Date HGB 17.0 08/19/2019 Lab Results Component Value Date HCT 53.4 08/19/2019 Lab Results Component Value Date MCV 90 08/19/2019 Lab Results Component Value Date MCH 28.6 08/19/2019 Last Comprehensive Metabolic Panel: Sodium Date Value Ref Range Status 01/11/2020 138 133 - 144 mmol/L Final Potassium Date Value Ref Range Status 01/11/2020 4.0 3.4 - 5.3 mmol/L Final Comment: Specimen slightly hemolyzed, potassium may be falsely elevated Chloride Date Value Ref Range Status 01/11/2020 108 98 - 110 mmol/L Final Carbon Dioxide Date Value Ref Range Status 01/11/2020 26 20 - 32 mmol/L Final Anion Gap Date Value Ref Range Status 01/11/2020 4 3 - 14 mmol/L Final Glucose Date Value Ref Range Status 01/11/2020 103 (H) 70 - 99 mg/dL Final Urea Nitrogen Date Value Ref Range Status 01/11/2020 18 7 - 30 mg/dL Final Creatinine Date Value Ref Range Status 01/11/2020 0.94 0.50 - 1.00 mg/dL Final GFR Estimate Date Value Ref Range Status 01/11/2020 >90 >60 mL/min/[1.73_m2] Final Comment: Non GFR Calc Starting 06/03/2018, serum creatinine based estimated GFR (eGFR) will be calculated using the Chronic Kidney Disease Epidemiology Collaboration (CKD-EPI) equation. Calcium Date Value Ref Range Status 01/11/2020 9.0 8.5 - 10.1 mg/dL Final Impression and Plan: Jude is an 19yo male s/p Fontan for heterotaxy, DORV, d-TGA, pulmonary stenosis and LV hypoplasia. He had device occlusion of his fenestration and has been bothered the last several years by palpitations and chest pain. He was most recently hospitalized for primary HSV stomatitis and was very ill. He improved on acyclovir. He is currently bradycardic and fatigued. Not on any anticoagulation. Echo stable. Recommendations: Decrease metoprolol XL to 12.5 mg daily Increase activity as tolerated. Holter monitor on lower dose metoprolol, will check back in after Holter results available Follow up February as planned. Sincerely Cordell Juarez M.D. Field Hauler of Pediatrics Pediatric and Adult Congenital Cardiology [facility] Pediatric Cardiology Office [phone] Adult Congenital Cardiology Triage and Scheduling [phone] documented in this encounter Nursing Notes Kim Summers MA - 01/13/2020 2:00 PM CDT Informant- Jude is accompanied by self Reason for Visit- S/P Fontan procedure Vitals signs- BP 107/72 Pulse 68 Resp 22 Ht 1.636 m (5' 4.41) Wt 61.5 kg (135 lb 9.3 oz) SpO2 92% BMI22.98 kg/m?? There are concerns about the child's exposure to violence in the home: No Face to Face time: 5 minutes Kim Summers MA documented in this encounter Plan of Treatment Upcoming Encounters Date Type Specialty Care Team Description 07/27/2022 Ancillary Procedure Cardiology Cordell Juarez MD [address] [place] [address] (Wo rk) 07/27/2022 Office Visit Cardiology LarryCordell MD [address] [place] [address] (Wo rk) documented as of this encounter Visit Diagnoses Diagnosis Bradycardia - Primary Other specified cardiac dysrhythmias S/P Fontan procedure Other postprocedural status documented in this encounter Additional Health Concerns Assessment Noted Time PHQ-9 Depression Total Score: 10 04/01/2019 9:14 AM CD T documented as of this encounter Care Teams Embossing Press Operator Apprentice Relationship Specialty Start Date End Date Clinic, [facility] PCP - General 06/25/19 02/22/[address] [place] [address] Magnus Zayas, PCP - General Student in organized 02/23/20 09/17/[address] education/[place] [address] program Magnus Zayas, Assigned PCP 02/28/2004/[address] [place] [address] documented as of this encounter
--- OUTSIDE RECORDS SUMMARY | 2022-04-10 09:53 | XMS_ITS | Encounter Summary ---
:2000 Author Organization [facility] Address [facility] [place] [address] Care Team Providers Name Role Phone Magnus Zayas DO Primary Care Provider [phone] Magnus Zayas DO Unavailable [phone] Encounter Details Date Type Department Care Team Description 03/02/2020 Travel Social History Tobacco Use Types Packs/Day [...] 07/27/2022 Ancillary Procedure Cardiology Cordell Juarez MD [facility] [address] [place], [place] [address] (Wo rk) 07/27/2022 Office Visit Cardiology Cordell Juarez MD [address] [place] [address] (Wo rk) documented as of this encounter Visit Diagnoses Not on filedocumented in this encounter Additional Health Concerns Assessment Noted Time PHQ-9 Depression Total Score: 10 04/01/2019 9:14 AM CD T documented as of this encounter Care Teams Paper Twister Relationship Specialty Start Date End Date Magnus Zayas, PCP - General Student in organized 02/23/20 09/17/[address] education/training program [address] [place], [place] [address] Magnus Zayas, Assigned PCP 02/28/2004/[address] [place] [address] documented as of this encounter
--- OUTSIDE RECORDS SUMMARY | 2022-04-10 09:53 | XMS_ITS | Encounter Summary ---
:2000 Author Organization [facility] Address [address] [facility] [place] [address] Care Team Providers Name Role Phone Clinic, [facility] Primary Care Provider [phone] Reason for Referral CV Testing (Routine) - Closed Specialty Diagnoses / Procedures Referred By Contact Refer red To Contact Diagnoses Chest pain Randa Umanzor MD Procedures Holter Monitor 48 hour Adult/Peds C AMB BP MONITORING W/SW >=24 HR, RECORD/SCAN/INTRP/RPT HC HOLTER RECORDING 24 HRS HC HOLTER SCAN 24 HRS [address] [address] Referral ID Status Reason Start Date Expiration Date Visits Requ ested Visits Authorized [id number] Closed 01/11/2020 01/10/2021 1 1 Reason for Visit CV Testing (Routine) - Closed Specialty Diagnoses / Procedures Referred By Contact Refer red To Contact Diagnoses Chest pain Randa Umanzor MD Procedures Holter Monitor 48 hour Adult/Peds C AMB BP MONITORING W/SW >=24 HR, RECORD/SCAN/INTRP/RPT HC HOLTER RECORDING 24 HRS HC HOLTER SCAN 24 HRS 2450 [facility] [address] [place] [address] 4 Referral ID Status Reason Start Date Expiration Date Visits Requ ested Visits Authorized [id number] Closed 01/11/2020 01/10/2021 1 1 Encounter Details Date Type Department Care Team Description [facility]/11[facility]2020 [facility] Sav[facility] [address] [facility] [address] [place] [address] [place], [place] [phone] (Wo rk) [address] [phone] Social History Tobacco Use Types Packs/Day Years Used Date Smoking Tobacco: Never Smokeless Tobacco: Never Comments: none at home Alcohol Use Standard Drinks/Week Comments No 0 (1 standard drink = 0.6 oz pure alcoho l) Sex Assigned at Date Recorded Male 03/09/2019 1:21 PM CDT COVID-19 Exposure Response Date Recorded In the last month, have you been in contact with No / Unsure 01/11/2020 12:08 AM CDT someone who was confirmed or suspected to have Coronavirus / COVID-19? documented as of this encounter Medications at Time of Discharge Medication Sig Dispensed Refills Start Date End Date amoxicillin (AMOXIL) 500 Take 4 capsules 20 capsule 3 2018 MG capsuleIndications: (2,000 mg) by mouth S/P Fontan procedure as needed (one hour prior to dental cleanings) polyethylene glycol Take 17 g (1 510 g 0 01/11/2020 (MIRALAX) 17 GM/SCOOP capful) by mouth powder daily acetaminophen (TYLENOL) Take 500 mg by 0 02/17/2020 500 MG tablet mouth every 8 hours as needed for mild pain digoxin (DIGOX) 250 MCG Take 1 tablet (250 90 tablet 3 12/1501/10/2021 tabletIndications: SVT mcg) by mouth daily (supraventricular tachycardia) (H) furosemide (LASIX) 20 MG Take 1 tablet (20 90 tablet 3 03/1702/17/2020 tabletIndications: S/P mg) by mouth daily Fontan procedure metoprolol succinate ER TAKE ONE TABLET BY 30 tablet 11 10/0 01/2019 02/17/2020 (TOPROL-XL) 25 MG 24 hr MOUTH ONE TIME tabletIndications: DAILY Tachycardia montelukast (SINGULAIR) Take 10 mg by mouth 0 02/17/2020 10 MG tablet At Bedtime omeprazole (PRILOSEC) 20 Take 1 capsule (20 90 capsule 3 11/18/[address] capsuleIndications: mg) by mouth daily Chest pain, unspecified type sildenafil (REVATIO) 20 Take 1 tablet (20 90 tablet 11 11/1909/28/2021 MG tabletIndications: mg) by mouth three 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 Never use with nitroglycerin, terazosin or doxazosin. spironolactone TAKE ONE TABLET BY 30 tablet 0 12/29/2019 (ALDACTONE) 25 MG MOUTH ONE TIME tabletIndications: DAILY Hypoplastic left heart syndrome valACYclovir (VALTREX) Take 1 tablet 8 tablet 0 12/28/2019 02/17/2020 1000 mg (1,000 mg) by mouth tabletIndications: Herpes every 12 hours for Simplex Infection 4 days documented as of this encounter Plan of Treatment Upcoming Encounters Date Type Specialty Care Team Description 07/27/2022 Ancillary Procedure Cardiology Cordell Juarez MD [facility] [address] [place] [address] (Wo rk) 07/27/2022 Office Visit Cardiology Cordell Juarez MD [address] [facility] [address] [address] [place] [address] (Wo rk) documented as of this encounter Procedures Procedure Name Priority Date/Time Associated Diagnosis Comme [facility] HOLTER MONITOR 48 HOUR Routine 01/11/2020 9:26 AM Chest pain APPLICATION SCAN ANALYSIS CDT AND PROVIDER INTERPRETATION documented in this encounter Results HOLTER MONITOR 48 HOUR APPLICATION SCAN ANALYSIS AND PROVIDER INTERPRETATION (01/11/2020 9:26 AM CDT) Anatomical Region Laterality Modality Other Specimen (Source) Anatomical Collection Method Collection Time Re ceived Time Location / / Volume Laterality 01/11/2020 2:46 AM CDT Randa Umanzor MD CV CARDIAC SERVICES ORDERABL ES documented in this encounter Visit Diagnoses Diagnosis Chest pain Chest pain, unspecified documented in this encounter Additional Health Concerns Assessment Noted Time PHQ-9 Depression Total Score: 10 04/01/2019 9:14 AM CD T documented as of this encounter Care Teams County Or City Auditor Relationship Specialty Start Date End Date Clinic, [facility] PCP - General 06/25/19 02/22/20 [address] [place] [address] documented as of this encounter
--- OUTSIDE RECORDS SUMMARY | 2022-04-10 09:53 | XMS_ITS | Encounter Summary ---
:2000 Author Organization [facility] Address [address] [place] [address] Care Team Providers Name Role Phone [facility] Primary Care Provider [phone] Reason for Visit Reason Comments Chest Pain Abdominal Pain Encounter Details Date Type Department Care Team Description 01/11/2020 Emergency [facility] Randa Umanzor Ch est pain (Primary Dx); [facility] Emergency AMD Abdominal pain, generalized Department [address] [place] [address] [place], [place] [phone] (Wo rk) Social History Tobacco Use Types [...] Sign Reading Time Taken Comments Blood Pressure 112/79 01/11/2020 2:15 AM CDT Pulse 48 01/11/2020 2:15 AM CDT Temperature 36.1 ??C (96.9 ??F) 01/11/2020 12:17 AM CDT Respiratory Rate 21 01/11/2020 2:15 AM CDT Oxygen Saturation 95% 01/11/2020 2:15 AM CDT Inhaled Oxygen Concentration - - Weight 62.7 kg (138 lb 3.7 oz) 01/11/2020 12:17 AM CDT Height - - Body Mass Index 23.73 12/19/2019 1:28 AM CDT documented in this encounter Discharge Instructions Discharge InstructionsRanda Umanzor MD - 01/11/2020 2:00 PM CDT Emergency Department Discharge Information for Jude Roque was seen in the [facility] Emergency Department today for chest and abdominal pain by Dr. Shweta Prescott and Dr. Umanzor. We recommend that you keep the Holter monitoring on for the next 48 hours. Continue all your daily activities and medications as usual. . For fever or pain, Jude can have: Acetaminophen (Tylenol) every 4 to 6 hours as needed (up to 5 doses in 24 hours). Your dose is: 2 regular strength tabs (650 mg) (43.2+ kg/96+ lb) Please return to the ED if your chest pain does not reduce or resolve in the next day or two. Please follow up with your founder, Dr. Cordell Juarez, on 01/13/2020 as scheduled. Please keep your appointment to follow up with Pediatric Cardiology ([phone] - this number works for most pediatric specialties)- 01/13/2020 Medication side effect information: All medicines may cause side effects. However, most people have no side effects or only have minor side effects. People can be allergic to any medicine. Signs of an allergic reaction include rash, difficulty breathing or swallowing, wheezing, or unexplained swelling. If he has difficulty breathing or swallowing, call 911 or go right to the Emergency Department. For rash or other concerns, call his doctor. If you have questions about side effects, please ask our staff. If you have questions about side effects or allergic reactions after you go home, ask your doctor or a pharmacist. Some possible side effects of the medicines we are recommending for Lu are: Acetaminophen (Tylenol, for fever or pain) - Upset stomach or vomiting - Talk to your doctor if you have liver disease Polyethylene glycol (Miralax, for constipation) - Diarrhea - this may happen if you take too much Miralax. If you get diarrhea, try using a smaller amount or using it less often - Flatulence (gas) - Stomach cramps - Talk to your doctor before using Miralax if you have kidney disease AttachmentsThe following attachments cannot be sent through Care Everywhere. Chest Pain, Uncertain Cause (South African)Event Monitor, Using an (South African)documented in this encounter Medications at Time of [...] TAKE ONE TABLET BY 30 tablet 11 01/201902/17/2020 (TOPROL-XL) 25 MG 24 hr MOUTH ONE [...] 4 days documented as of this encounter ED Notes Deyanira Alcocer RN - 01/11/2020 12:12 AM CDT Pt w/ hx of HLHS, seen by our cardiology. Has been having chest pain and abdominal pain starting today. States that his chest pain is slow and on left side of chest. Rates chest pain 710. Also states that he has been having diarrhea. Randa Umanzor MD - 01/11/2020 12:08 AM CDT History Chief Complaint Patient presents with ??? Chest Pain ??? 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 Per patient he was in his normal state of health when he started noticing slow onset 7/10, constant, pressing, dull chest pain radiating to the belly. He denies any shortness of breath or chest injury. He alsocomplains of a generalized belly pain which was of sudden onset is sharp and pressure-like and is nonradiating. It improved a bit when he had a loose stool earlier today. At baseline, he does not necessarily stool every day. He states that the chest pain and the belly pain are associated with generalized weakness. For his pain he took Tylenol at about 8 PM without relief. He is being followed by pediatric cardiology, and states that he is on furosemide, digoxin, lisinopril, Spironolactone, omeprazole which he has been taking regularly and last doses of which were this morning. He denies any recent travel, covert exposures and lives at his girlfriend's house with his girlfriend and her dad. PMHx: Past Medical History: Diagnosis Date ??? 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 Congenital anomalies of spleen Polysplenia ??? Esophageal reflux ??? 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 C CORRECT MALROTATION OF BOWEL 03/2006 ??? C REPR BY MODIFIED FONTAN fenestrated fontan ??? EP ABLATION CHILD N/A 01/18/2016 Procedure: EP ABLATION CHILD; Surgeon: Marion Figueroa MD; Location: [facility] OR ??? EP STUDY CHILD N/A 01/18/2016 Procedure: EP STUDY CHILD; Surgeon: Marion Figueroa MD; Location[facility] OR ? ? HC CIRCUMCISION SURGICAL NON-DEV >28 DAYS AGE 2004 ??? HEART CATH CHILD N/A 01/18/2016 Procedure: HEART CATH CHILD; Surgeon: Akash Graves MD; Location: [facility] OR These were reviewed with the patient/family. MEDICATIONS were reviewed and are as follows: No current facility-administered medications for this encounter. Current Outpatient Medications Medication ??? acetaminophen (TYLENOL) 500 MG tablet ??? digoxin (DIGOX) 250 MCG tablet ??? furosemide (LASIX) 20 MG tablet ??? metoprolol succinate ER (TOPROL-XL) 25 MG 24 hr tablet ??? omeprazole (PRILOSEC) [address] capsule ??? polyethylene glycol (MIRALAX) 17 GM/SCOOP powder ??? sildenafil (REVATIO) 20 MG tablet ??? spironolactone (ALDACTONE) 25 MG tablet ??? amoxicillin (AMOXIL) 500 MG capsule ??? montelukast (SINGULAIR) 10 MG tablet ??? valACYclovir (VALTREX) 1000 mg tablet ALLERGIES: Seasonal allergies IMMUNIZATIONS: UTD by report. SOCIAL HISTORY: Jude lives with girlfriend and girlfriend's dad. I have reviewed the Medications, Allergies, Past Medical and Surgical History, and Social History inthe Epic system. Review of Systems Please see HPI for pertinent positives and negatives. All other systems reviewed and found to be negative. Physical Exam BP: 124/77 Pulse: 56 Heart Rate: 57 Temp: 96.9 ??F (36.1 ??C) Resp: 18 Weight: 62.7 kg (138 lb 3.7 oz) SpO2: 97 % GENERAL: Active, alert, in mild distress and pain, later comfortable appearing, watching a movie. SKIN: Clear. No significant rash, abnormal pigmentation or lesions, well healed vertical chest wall scar. HEAD: Normocephalic EYES: Pupils equal, round, reactive, Extraocular muscles intact. Normal conjunctivae. NOSE: Normal without discharge. MOUTH/THROAT: Clear. No oral lesions. NECK: Supple, no masses. No thyromegaly. LYMPH NODES: No adenopathy LUNGS: Clear. No rales, rhonchi, wheezing or retractions HEART: Mild bradycardia, Regular rhythm. Normal S1, single S2. Normal pulses. ABDOMEN: Soft, minimal diffuse tenderness, no guarding, not distended, no masses or hepatosplenomegaly. Bowel sounds normal. NEUROLOGIC: No focal findings. Cranial nerves grossly intact. EXTREMITIES: Full range of motion,warm, well perfused. ED Course Procedures Results for orders placed or performed during the hospital encounter of 01/11/20 (from the past 24 hour(s)) EKG 12 lead Result Value Ref Range Interpretation ECG Click View Image link to view waveform and result CBC with platelets differential Result Value Ref Range WBC 5.1 4.0 - 11.0 10e9/L RBC Count 5.45 4.4 - 5.9 10e12/L Hemoglobin 15.6 13.3 - 17.7 g/dL Hematocrit 47.3 40.0 - 53.0 % MCV 87 78 - 100 fl MCH 28.6 26.5 - 33.0 pg MCHC 33.0 31.5 - 36.5 g/dL RDW 14.8 10.0 - 15.0 % Platelet Count 213 150 - 450 10e9/L Diff Method Automated Method % Neutrophils 58.1 % % Lymphocytes 28.8 % % Monocytes 10.5 % % Eosinophils 1.8 % % Basophils 0.6 % % Immature Granulocytes 0.2 % Nucleated RBCs 0 0 /100 Absolute Neutrophil 3.0 1.6 - 8.3 10e9/L Absolute Lymphocytes 1.5 0.8 - 5.3 10e9/L Absolute Monocytes 0.5 0.0 - 1.3 10e9/L Absolute Eosinophils 0.1 0.0 - 0.7 10e9/L Absolute Basophils 0.0 0.0 - 0.2 10e9/L Abs Immature Granulocytes 0.0 0 - 0.4 10e9/L Absolute Nucleated RBC 0.0 Basic metabolic panel Result Value Ref Range Sodium 138 133 - 144 mmol/L Potassium 4.0 3.4 - 5.3 mmol/L Chloride 108 98 - 110 mmol/L Carbon Dioxide 26 20 - 32 mmol/L Anion Gap 4 3 - 14 mmol/L Glucose 103 (H) 70 - 99 mg/dL Urea Nitrogen 18 7 - 30 mg/dL Creatinine 0.94 0.50 - 1.00 mg/dL GFR Estimate >90 >60 mL/min/[1.73_m2] GFR Estimate If Black >90 >60 mL/min/[1.73_m2] Calcium 9.0 8.5 - 10.1 mg/dL BNP Result Value Ref Range N-Terminal Pro BNP Inpatient 90 0 - 450 pg/mL D dimer quantitative Result Value Ref Range D Dimer 0.5 0.0 - 0.50 ug/ml FEU Troponin POCT Result Value Ref Range Troponin I 0.00 0.00 - 0.08 ug/L Medications acetaminophen (TYLENOL) tablet 650 mg (650 mg Oral Given 01/11/20 0128) Old chart from [facility] reviewed, supported history as above. Labs reviewed and within normal limits. EKG with no significant changes from previous EKG's Patient was attended to immediately upon arrival and assessed for immediate life-threatening conditions. A consult was requested and obtained from Pediatric Tape Control Skin Or Spar Mill Operator, who agreed with the assessment and plan as documented. Critical care time: None Luke was noted to be in moderate pain on admission to the ED. During the interview, his monitor was showing what appeared to be some mild ST elevations so we obtained a stat EKG. Comparison with his previous EKG shows no acute changes at this point as compared to his previous EKGs. He does have an abnormal heart anatomy. We will obtain a [id number] troponin, BNP, CBC, BMP, d-dimer for initial assessment. Will also obtain a chest and abdominal XR. Troponin was noted to be negative at 0.00. BNP, d-dimer and BMP within normal limits as well. CXR was reviewed, showed no acute changes or pathologies. AXR with moderate amount of stool noted. Due to persistent pain, he received PO Tylenol 650 mg with mild improvement. Pediatric hide house supervisor was paged and on discussion with the staff, they recommended 48 hours of Holter monitoring and follow up with Jude's primary founder, Dr. Juarez this week. Jude stated that he already has an appointment scheduled for this Saturday01/13/2020. For his moderate constipation, we will discharge him with miralax for a bowel regime. 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 On initial assessment and physical exam Jude definitely appeared in discomfort and pain. Acute coronary syndrome, costochondritis and pulmonary embolism were initially on the differential. ACS, PE labs were obtained, reviewed and were noted to be within normal limits. His abdominal pain is generalized and could be referred from his chest pain, due to a mild viral e nteritis given his loose stool, or due to constipation (with overflow causing the loose stool) givenhis moderate stool burden on AXR and history of infrequent stools at baseline. After discussion withthe pediatric cardiology team Jude was discharged home with recommendations of earlier follow up. Plan: - Discharge home - 48 hours of Holter monitoring - Pain control with Tylenol - Follow up with Dr. Cordell Juarez this week on Saturday01/13/2020 - Trial of Miralax daily 1 capful (17g) daily to maintain a good bowel regimen. - Instructions to return to the ED if pain does not reduce or resolve in the next 24 hours I have reviewed the nursing notes. I have reviewed the findings, diagnosis, plan and need for follow up with the patient. New Prescriptions POLYETHYLENE GLYCOL (MIRALAX) 17 GM/SCOOP POWDER Take 17 g (1 capful) by mouth daily Final diagnoses: Chest pain Abdominal pain, generalized Patient's clinical symptoms, history and physical findings were discussed with Dr. Umanzor. Shweta Prescott MD Pediatric Resident. -2 [facility] This data was collected with the resident physician working in the Emergency Department. I saw and evaluated the patient and repeated the norton portions of the history and physical exam. The plan of carehas been discussed with the patient and family by me or by the resident under my supervision. I haveread and edited the entire note. Randa Umanzor MD 01/11/2020 [facility] EM[facility]Y [facility] Randa Umanzor MD 01/11/20 0230 documented in this encounter Plan of Treatment Upcoming Encounters Date Type Specialty Care Team Description 07/27/2022 Ancillary Procedure Cardiology Cordell Juarez MD [address] [facility] [id number] [place] [address] (Wo rk) 07/27/2022 Office Visit Cardiology Cordell Juarez MD [address] [place] [address] (Wo rk) documented as of this encounter Procedures Procedure Name Priority Date/Time Associated Comments Diagnosis XR CHEST 2 VIEWS STAT 01/11/2020 1:21 AM Resul ts for this CDT procedure are i n the results section. XR ABDOMEN 2 VIEWS STAT 01/11/2020 1:21 AM Res ults for this CDT procedure are i n the results section. TROPONIN POCT Routine 01/11/2020 12:52 Results fo r this AM CDT procedure are i n the results section. CBC WITH PLATELETS & STAT 01/11/2020 12:45 Res ults for this DIFFERENTIAL AM CDT procedure are i n the results section. NT PROBNP INPATIENT STAT 01/11/2020 12:45 Resu lts for this AM CDT procedure are i n the results section. D DIMER QUANTITATIVE STAT 01/11/2020 12:45 Res ults for this AM CDT procedure are i n the results section. BASIC METABOLIC PANEL STAT 01/11/2020 12:45 Re sults for this AM CDT procedure are i n the results section. EKG 12-LEAD, TRACING STAT 01/11/2020 12:36 Res ults for this ONLY AM CDT procedure are i n the results section. documented in this encounter Results XR Chest 2 Views (01/11/2020 1:21 AM CDT) Anatomical Region Laterality Modality Chest Computed Radiography Specimen (Source) Anatomical Location Collection Method / Collectio n Time Received Time / Laterality Volume Impressions 01/11/2020 6:38 AM CDT Impression: Stable postsurgical changes of the chest . No acute cardiopulmonary disease. I have personally reviewed the examinati on and initial interpretation and I agree with the findings. SALEEM ENG MD Narrative 01/11/2020 6:38 AM CDT XR CHEST 2 VW, 01/11/2020 1:21 AM. Comparison: December 23, 2019 radiograph, MRI 05/25/2018 History: chest pain with h/o Hypoplastic left heart syndrome. Technique: PA and lateral chest radiogra phs Findings: Serial postsurgical changes of the chest . Cardiomediastinal silhouette is within normal limits. Pulmonary vascu lature is distinct. No acute airspace opacities. No pleural effusion. No pneumothorax. No acute intra-abdominal abnormalities. Procedure Note Saleem Eng MD - 01/11/2020Form atting of this note might be different from the original. XR CHEST 2 VW, 01/11/2020 1:21 AM. Comparison: December 23, 2019 radiograph, MRI 05/25/2018 History: chest pain with h/o Hypoplastic left heart syndrome. Technique: PA and lateral chest radiogra phs Findings: Serial postsurgical changes of the chest . Cardiomediastinal silhouette is within normal limits. Pulmonary vascu lature is distinct. No acute airspace opacities. No pleural effusion. No pneumothorax. No acute intra-abdominal abnormalities. Impression: Stable postsurgical changes of the chest . No acute cardiopulmonary disease. I have personally reviewed the examinati on and initial interpretation and I agree with the findings. SALEEM ENG MD Shweta Prescott MD [facility] DIAGNOSTIC IMAGING ORDER BHAVESH XR Abdomen 2 Views (01/11/2020 1:21 AM CDT) Anatomical Region Laterality Modality Abdomen/Pelvis Computed Radiography Specimen (Source) Anatomical Location Collection Method / Collectio n Time Received Time / Laterality Volume Impressions 01/11/2020 6:37 AM CDT IMPRESSION: Nonobstructive bowel gas pattern. Modera te volume of stool in the colon. I have personally reviewed the examinati on and initial interpretation and I agree with the findings. SALEEM ENG MD Narrative 01/11/2020 6:37 AM CDT EXAMINATION: ??XR ABDOMEN 2 VW 01/11/2020 1:21 AM COMPARISON: None. HISTORY: abdominal pain TECHNIQUE: Upright and supine radiograph s of the abdomen FINDINGS: Nonobstructive bowel gas pattern. No pne umatosis. No portal venous gas. Moderate amount stool in the colon. No abnormal radiodensities. No suspicious osseous lesions. Partially visualized surgical changes of the chest. Lung bases are clear. No f ree air. Procedure Note Saleem Eng MD - 01/11/2020Form atting of this note might be different from the original. EXAMINATION: XR ABDOMEN 2 VW 01/11/2020 1 :21 AM COMPARISON: None. HISTORY: abdominal pain TECHNIQUE: Upright and supine radiograph s of the abdomen FINDINGS: Nonobstructive bowel gas pattern. No pne umatosis. No portal venous gas. Moderate amount stool in the colon. No abnormal radiodensities. No suspicious osseous lesions. Partially visualized surgical changes of the chest. Lung bases are clear. No f ree air. IMPRESSION: Nonobstructive bowel gas pattern. Modera te volume of stool in the colon. I have personally reviewed the examinati on and initial interpretation and I agree with the findings. SALEEM ENG MD Shweta Prescott MD [facility] DIAGNOSTIC IMAGING ORDER BHAVESH Troponin POCT (01/11/2020 12:52 AM CDT) P athologist Signature Troponin I 0.00 0.00 - 0.08 01/11/2020 POINT OF CARE ug/L 1:04 AM CDT TEST, HANDHELD METER Specimen Anatomical Collection Method Collection Time Receive d Time (Source) Location / / Volume Laterality 01/11/2020 12:52 01/11/2020 1:04 AM CDT AM CDT Provider Unknown LAB - ENTER/EDIT POCT Performing Organization Address City/State/ZIP Code Phon e Number [facility] POINT OF CARE TEST, HANDHELD METER POINT OF CARE TEST, HANDHELD METER D dimer quantitative (01/11/2020 12:45 AM CDT) athologist Signature D Dimer 0.5 0.0 - 0.50 01/11/2020 U OF M AMPLATZ ug/ml FEU 1:22 AM CDT [facility] Comment: This D-dimer assay is intended for use i n conjunction with a clinical pretest probability assessment model to exclude pulmonary embolism (PE) and deep venous thrombosis (DVT) in outpatients s uspected of PE or DVT. The cut-off value is 0.5 ug/mL FEU. Specimen Anatomical Collection Method Collection Time Receive d Time (Source) Location / / Volume Laterality Blood specimen 01/11/2020 12:45 0 1:00 (specimen) AM CDT AM CDT Shweta Prescott MD LAB - BLOOD ORDERABLES Performing Organization Address City/[facility]/ZIP Code Phon e Number [facility] OF [facility] BNP (01/11/2020 12:45 AM CDT) athologist Signature N-Terminal Pro 90 0 - 450 01/11/2020 [facility] BNP Inpatient pg/mL 1:33 AM CDT [facility] Comment: Reference range shown and results flagge d as abnormal are suggested inpatient cut points for confirming diagnosis if C HF in an acute setting. Establishing a baseline value for each individual john ent is useful for follow-up. An inpatient or emergency department NT-pro PBNP <300 pg/mL effectively rules out acute CHF, with 99% negative predictive value. The outpatient non-acute reference range for ruling out CHF is: 0-125 pg/mL (age 18 to less than 75) 0-450 pg/mL (age 75 yrs and older) Specimen Anatomical Collection Method Collection Time Receive d Time (Source) Location / / Volume Laterality Blood specimen 01/11/2020 12:45 07/27/202 0 1:00 (specimen) AM CDT AM T Shweta Prescott MD LAB - BLOOD ORDERABLES Performing Organization Address City/State/ZIP Code Phon e Number [facility] [place] [facility] OF [facility] (ABNORMAL) Basic metabolic panel (01/11/2020 12:45 AM CDT) P athologist Signature Sodium 138 133 - 144 01/11/2020 [place] mmol/L 1:25 AM [facility] Potassium 4.0 3.4 - 5.3 01/11/2020 [facility] mmol/L 1:33 AM [facility] Comment: Specimen slightly hemolyzed, po tassium may be falsely elevated Chloride 108 98 - 110 mmol/L 01/11/2020 1:25 AM [facility] Carbon Dioxide 26 20 - 32 mmol/L 01/11/2020 1:25 AM [facility] Anion Gap 4 3 - 14 mmol/L 01/11/2020 1:25 AM [facility] Glucose 103 (H) 70 - 99 mg/dL 01/11/2020 1:25 AM [facility] Urea Nitrogen 18 7 - 30 mg/dL 01/11/2020 1:25 AM [facility] Creatinine 0.94 0.50 - 1.00 mg/dL 01/11/2020 1:[address] [facility] GFR Estimate >90 >60 01/11/2020 1:25 AM [facility] mL/min/{1.73_m2} [facility] Comment: Non GFR Calc Starting 06/03/2018, serum creatinine ba sed estimated GFR (eGFR) will be calculated using the Chronic Kidney Dise [facility] Epidemiology Collaboration (CKD-EPI) equation. GFR Estimate If >90 >60 mL/min/{1.73_m2} 01/11/2020 1: 25 AM [facility] Comment: GFR Calc Starting 06/03/2018, serum creatinine ba sed estimated GFR (eGFR) will be calculated using the Chronic Kidney Dise [facility] Epidemiology Collaboration (CKD-EPI) equation. Calcium 9.0 8.5 - 10.1 mg/dL 01/11/2020 1:[address] [facility] Specimen Anatomical Collection Method Collection Time Receive d Time (Source) Location / / Volume Laterality Blood specimen 01/11/2020 12:45 0 1:00 (specimen) AM CDT AM CDT Shweta Prescott MD LAB - BLOOD ORDERABLES Performing Organization Address City/State/ZIP Code Phon e Number M [facility] [address] [place] [address] [facility] [address] [place] [address], [place] [phone] U OF M [facility] CBC with platelets differential (01/11/2020 12:45 AM CDT) [facility] Method Time Signature WBC 5.1 4.0 - 01/11/2020 [facility] 11.0 1:07 AM CDT [facility] 10e9/L [facility] RBC Count 5.45 4.4 - 5.9 01/11/2020 [facility] 10e12/L 1:07 AM CDT [facility] Hemoglobin 15.6 13.3 - 01/11/2020 [facility] 17.7 g/dL 1:07 AM CDT [facility] Hematocrit 47.3 40.0 - 01/11/2020 [facility] 53.0 % 1:07 AM CDT [facility] MCV 87 78 - 100 01/11/2020 [facility] 1:07 AM CDT [facility] MCH 28.6 26.5 - 01/11/2020 [facility] 33.0 pg 1:07 AM CDT [facility] MCHC 33.0 31.5 - 01/11/2020 [facility] 36.5 g/dL 1:07 AM CDT [facility] RDW 14.8 10.0 - 01/11/2020 [facility] 15.0 % 1:07 AM CDT [facility] Platelet Count 213 150 - 450 01/11/2020 [facility] 10e9/L 1:07 AM CDT [facility] Diff Method Automated 01/11/2020 [facility] Method 1:07 AM CDT [facility] % Neutrophils 58.1 % 01/11/2020 [facility] 1:07 AM CDT [facility] % Lymphocytes 28.8 % 01/11/2020 [facility] 1:07 AM CDT [facility] % Monocytes 10.5 % 01/11/2020 [facility] 1:07 AM CDT [facility] % Eosinophils 1.8 % 01/11/2020 [facility] 1:07 AM CDT [facility] % Basophils 0.6 % 01/11/2020 [facility] 1:07 AM CDT [facility] % Immature 0.2 % 01/11/2020 [facility] Granulocytes 1:07 AM CDT [facility] Nucleated RBCs 0 0 /100 01/11/2020 [facility] 1:07 AM CDT [facility] Absolute 3.0 1.6 - 8.3 01/11/2020 [facility] Neutrophil 10e9/L 1:07 AM CDT [facility] Absolute 1.5 0.8 - 5.3 01/11/2020 [facility] Lymphocytes 10e9/L 1:07 AM CDT [facility] Absolute 0.5 0.0 - 1.3 01/11/2020 [facility] Monocytes 10e9/L 1:07 AM CDT [facility] Absolute 0.1 0.0 - 0.7 01/11/2020 [facility] Eosinophils 10e9/L 1:07 AM CDT [facility] Absolute 0.0 0.0 - 0.2 01/11/2020 [facility] Basophils 10e9/L 1:07 AM CDT [facility] Abs Immature 0.0 0 - 0.4 01/11/2020 [facility] Granulocytes 10e9/L 1:07 AM CDT [facility] Absolute 0.0 01/11/2020 [facility] Nucleated RBC 1:07 AM CDT [facility] Specimen Anatomical Collection Method Collection Time Receive d Time (Source) Location / / Volume Laterality Blood specimen 01/11/2020 12:45 0 1:00 (specimen) AM CDT AM CDT Shweta Prescott MD LAB - BLOOD ORDERABLES Performing Organization Address City/State/ZIP Code Phon e Number [facility] [address] [place] [address] [facility] EKG 12 lead (01/11/2020 12:36 AM CDT) [facility] gist Method Time Signature Interpretation ECG Click View RADIOLOGY Image link RESULTS to view waveform and result Specimen (Source) Anatomical Collection Method Collection Time Re ceived Time Location / / Volume Laterality 01/11/2020 12:36 AM CDT Shweta Prescott MD ECG ORDERABLES Performing Organization Address City/State/ZIP Code Phon e Number RADIOLOGY RESULTS documented in this encounter Visit Diagnoses Diagnosis Chest pain - Primary Chest pain, unspecified Abdominal pain, generalized documented in this encounter Administered Medications Inactive Administered Medications - up to 3 most recent administrations Medication Order MAR Action Action Date Dose Rate Site acetaminophen (TYLENOL) tablet 650 Given 01/11/2020 1:28 AM CDT 650 mg mg 650 mg, Oral, ONCE, On Sat01/11/20 at 0126, For 1 dose, Maximum acetaminophen dose from all sources = 75 mg/kg/day not to exceed 4 grams/day. documented in this encounter Active and Recently Administered Medications Times are shown in CDT. Scheduled Medication Order 01/09/2020 01/10/2020 01/11/2020 acetaminophen (TYLENOL) tablet 650 mg (COMPLETED) 0128 (Given - Provider: Ruthy Caballero RN) 650 mg, Oral, ONCE, Sat01/11/20 at 0126, For 1 dose, Maximum acetaminophen dose from all sources = 75 mg/kg/day not to exceed 4 grams/day. documented in this encounter Additional Health Concerns Assessment Noted Time PHQ-9 Depression Total Score: 10 04/01/2019 9:14 AM CD T documented as of this encounter Care Teams Asbestos Textile Supervisor Relationship Specialty Start Date End Date [facility], [facility] PCP - General 06/25/19 02/22/[address] [place] [id number] documented as of this encounter
--- OUTSIDE RECORDS SUMMARY | 2022-04-10 09:53 | XMS_ITS | Encounter Summary ---
:2000 Author Organization [place] Address [address] [facility] [address] Care Team Providers Name Role Phone Magnus Zayas DO Primary Care Provider [phone] Magnus Zayas DO Unavailable [phone] Reason for Referral CV Testing (Routine) - Closed Specialty Diagnoses / Procedures Referred By Contact Refer red To Contact Cardiology Diagnoses S/P Fontan procedure Cordell Juarez MD Cardiac Services Procedures Stress Test - Peds DOPPLER ECHO COLOR FLOW VELOCITY MAP ECHO HEART XTHORACIC, STRESS/REST HC CARDIAC STRESS TST,COMPLETE C CARDIAC STRESS TST,DR SUPERV ONLY HC CARDIAC STRESS TEST, TRACING ONLY [address] [id number] [address] [facility] C CARDIAC STRESS TST,INTERP/[place] [address] [place] [address] Phone: Referral ID Status Reason Start Date Expiration Date Visits Requ ested Visits Authorized [id number] Closed 03/11/2020 02/16/2021 1 1 Reason for Visit CV Testing (Routine) - Closed Specialty Diagnoses / Procedures Referred By Contact Refer red To Contact Cardiology Diagnoses S/P Fontan procedure Cordell Juarez MD Cardiac Services Procedures Stress Test - Peds HC DOPPLER ECHO COLOR FLOW VELOCITY MAP HC ECHO HEART XTHORACIC, STRESS/REST HC CARDIAC STRESS TST,COMPLETE C CARDIAC STRESS TST,DR SUPERV ONLY HC CARDIAC STRESS TEST, TRACING ONLY [address] [facility] [id number] [address] [facility] C CARDIAC STRESS TST,INTERP/[place] [address] [place] [address] Phone: Referral ID Status Reason Start Date Expiration Date Visits Requ ested Visits Authorized [id number] Closed 03/11/2020 02/16/2021 1 1 Encounter Details Date Type Department Care Team Description 03/17/[address] [facility] Cordell Juarez , S/P [facility] procedure [place] [address] [facility] [address] [place] [address] [place] [address] [place], [place] [phone] (Work) [phone] Social History Tobacco Use Types Packs/Day Years [...] (one hour prior to dental cleanings) digoxin (DIGOX) 250 MCG Take 1 tablet (250 90 tablet 3 12/1501/10/2021 tabletIndications: SVT mcg) by mouth daily (supraventricular tachycardia) (H) furosemide (LASIX) 20 MG Take 0.5 tablets (10 45 tablet 3 0 02/17/2020 03/16/2021 tabletIndications: S/P mg) by mouth daily Fontan procedure metoprolol succinate ER Take 0.5 tablets 45 tablet 3 201909/09/2020 (TOPROL-XL) 25 MG 24 hr (12.5 mg) by mouth tabletIndications: daily Tachycardia montelukast (SINGULAIR) Take 1 tablet (10 90 tablet 3 02/1603/17/2021 10 MG tabletIndications: mg) by mouth daily S/P Fontan procedure, Hypoplastic left heart syndrome, Palpitations omeprazole (PRILOSEC) 20 Take 1 capsule (20 90 capsule 3 11/18/[address] mg) by mouth daily capsuleIndications: Chest pain, unspecified type sertraline (ZOLOFT) 25 Take 1 tablet (25 60 tablet 1 201904/05/2020 MG tabletIndications: mg) by mouth daily Moderate episode of If tolerating recurrent major medicine after 2 depressive disorder (H) weeks, can increase to 2 tablets (50 mg) daily sildenafil (REVATIO) 20 Take 1 tablet (20 90 tablet 11 11/1909/28/2021 MG tabletIndications: mg) by mouth three 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 Never use with nitroglycerin, terazosin or doxazosin. spironolactone Take 1 tablet (25 90 tablet 3 02/17/2020 (ALDACTONE) 25 MG mg) by mouth daily tabletIndications: Hypoplastic left heart syndrome documented as of this encounter Plan of Treatment Upcoming Encounters Date Type Specialty Care Team Description 07/27/2022 Ancillary Procedure Cardiology Cordell Juarez MD [address] [phone] (Arleen valdes) 07/27/2022 Office Visit Cardiology Cordell Juarez MD [address] [place], [place] [phone] (Wo rk) documented as of this encounter Procedures Procedure Name Priority Date/Time Associated Comments Diagnosis CARDIOLPUMONARY STRESS Routine 03/17/2020 2:54 S/P Fontan Re sults for this TEST - PEDIATRIC PM CDT procedure procedure a re in the results section. PFT GENERAL LAB TESTING Routine 03/17/2020 1:46 R esults for this PM CDT procedure are i n the results section. 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 Reason for Study: Routine surveillance Procedure: Modality: Up-right bike/Tread mill Protocol: ?? Work rate: The patient was exercised according to t he above protocol while breathing through a mouthpiece with a nose clip in place. Kpygcx-ak-jydcfr measurements of respiratory rate, VE, VO 2, VCO2, were made at rest, at zero load, during exercise and into kermit very. From these variables The respiratory Quotient, oxygen pulse, and ventilatory equivalents were calculated. Heart rate, rhythm and oxyge n saturations were continuously monitored with intermittent sphygmomanom etry. 12-lead ECGs were obtained at rest and every minute during exercise and into recovery. RESULTS AEROBIC CAPACITY ?? BASELINE SPIROMETRY Measured Predicted ? % Predicted ??Measured Predicted % Predicted Exercise time ??10:44 ?? MVV (L/min) 123 141 87% Work (W) 174 222 78% FEV1 (L) 3.03 3.5 ? ?86% VO2 (L/min) 2.33 2.77 84% FVC (L) 3.3 4. 03 81% VO2 (mL/kg/min) 36.4 43.3 84% IC (L) 2.3 2 3.26 71% VAT (L/min) 1.62 ?? FEV1/FVC (%) 92 88 N /A VAT/%predicted peak VO2 71% 30-50% ? CARDIOVASCULAR RESPONSE ?HR Recov cindy Baseline Peak Exercise Predicted % Pred icted Chronotropic Index (1 min) (5 min) Heart rate (bpm) 59 173 198 88% 82% -21 -70 Systolic pressure (mmHg) ??118 158 N/A N /A ? Diastolic pressure (mmHg) 72 80 N/A N/A ? O2 saturation 97 94 N/A N/A ? O2 pulse (mL/beat) 6 14 14 100% ? ECG Abnormalities None significant, isol ated PVCs. ? PULMONARY RESPONSE ? Peak Exercise Predicted % Predicted ?? Peak VE (L/min) 81.4 141 (123 measured) 57.7% VE/VCO2 [place] 31 Peak VT (L) 1.93 N/A N/A Minimum VE/VCO2 28 Peak RR (min -1) 42 N/A N/A VE/VCO2 @ AT 29 Breathing [place] 34% using measured MVV >30% N/A RER 1.14 Effort Excellent Perceived Exertion 8/10 Symptoms Exertional dyspnea Reason for Termination Exertional dyspne a Ectopy Arrhythmia Isolated PVCs one coup let ST Segment Changes None significant Additional Studies None CONCLUSION: Exercise Capacity: Normal. The peak VO2 achieved was Normal. Anaerobic threshold was detected with Good confide nce and was 71%as a percent of predicted peak VO2. Cardiovascular Response: The patient's d ominant rhythm during exercise was sinus. The resting heart rate was normal and the peak heart rate achieved during exercise was Normal as a percent of predicted. Heart rate recovery was normal. The blood pressure at rest w as Normal and there was a Normalblood pressure response to exercis e. There are no concerning ST segment changes or arrhythmia during exe rcise or recovery. The HR/V02 relationship was Normal. ??These finding s are consistent with A normal cardiovascular response to exercise. Respiratory Response: Baseline spirometr y was Significant for borderline low inspiratory capacity and forced rivera l capacity suggesting some restrictive physiology. Baseline maximal flow-volume loops were Normal. The patient's respiratory rate, oxygen s aturations and tidal volumes were normal at rest. Oxygen saturations remai dontae Almost normalthroughout exercise. There was a normal increase in tidal volumes during exercise and peak tidal volumes did not approach insp iratory capacity. Breathing reserve was normal Summary: Normal aerobic capacity with el evated anaerobic threshold. The cardiovascular response was normal.. The respiratory response to exercise was normal with the exception of Mild re strictive physiology which is ?? Expected from multiple cardiac surgeries . Akash Kathleen MD, FACC, [facility] [place] engineering professor, Pediatric Cardiolog y Director, Pediatric Cardiac Catheterisat ion Pager: [phone] [email or web address] Cordell Juarez MD CV CARDIAC SERVICES ORDERABL ES PFT General Lab Testing - scheduling order (03/17/2020 1:46 PM CDT) P athologist Signature FVC-Pred 4.03 L [facility] FVC-Pre 3.29 L [facility] FVC-%Pred-Pre 81 % [facility] FEV1-Pre 3.03 L [facility] FEV1-%Pred-Pre 86 % [facility] [id number] 88 % [facility] [id number] 92 % [facility] FEFMax-Pred 8.74 L/sec [facility] FEFMax-Pre 6.34 L/sec [facility] FEFMax-%Pred-Pr 72 % [facility] e [id number] 4.10 L/sec [facility] [id number] 3.63 L/sec [facility] [id number]-P 88 % [facility] re ExpTime-Pre 1.49 sec [facility] FIFMax-Pre 2.26 L/sec [facility] MVV-Pred 170 L/min [facility] MVV-Pre 123 L/min [facility] MVV-%Pred-Pre 72 % [facility] VC-Pred 4.82 L [facility] VC-Pre 3.41 L [facility] VC-%Pred-Pre 70 % [facility] IC-Pred 3.26 L [facility] IC-Pre 2.32 L [facility] IC-%Pred-Pre 71 % [facility] ERV-Pred 1.56 L [facility] ERV-Pre 1.08 L [facility] ERV-%Pred-Pre 69 % [facility] [id number] 85 % [facility] [id number] 92 % [facility] [id number] 73 % [facility] [id number] 89 % [facility] Specimen (Source) Anatomical Collection Method Collection Time Re ceived Time Location / / Volume Laterality 03/17/2020 1:46 PM CDT Narrative [facility] - 03/18/2020 12:17 PM CDT FVC is borderline low, FEV1 is normal, while FEV1/FVC ratio is normal. ??The reduction in FVC is technical, not real, as patient unable to sustain exhalation requisite duration. IMPRESSION: Probably within normal limit s but cannot exclude restrictive process. ____M.D. ?This interpretation has been electro nically signed: ??Barry Pena 03/18/2020 ??12:15:58 PM? Cordell Juarez MD PFT ORDERABLES Performing Organization Address City/State/ZIP Code Phon e Number [facility] documented in this encounter Visit Diagnoses Diagnosis S/P Fontan procedure Other postprocedural status documented in this encounter Additional Health Concerns Assessment Noted Time PHQ-9 Depression Total Score: 10 04/01/2019 9:14 AM CD T documented as of this encounter Care Teams Vp Global Relationship Specialty Start Date End Date Magnus Zayas, PCP - General Student in organized 02/23/20 09/17/[address] education/training program [address] [place] [address] Magnus Zayas, Assigned PCP 02/28/2004/06 DO [address] [facility] [address] [place] [address] documented as of this encounter
--- OUTSIDE RECORDS SUMMARY | 2022-04-10 09:53 | XMS_ITS | Encounter Summary ---
:2000 Author Organization [place] Address [address] [place] [address]. [place] [address] Care Team Providers Name Role Phone [facility], [facility] Primary Care Provider [phone] Encounter Details Date Type Department Care Team Description 01/11/2020 Travel Social History Tobacco Use Types Packs/Day [...] 07/27/2022 Ancillary Procedure Cardiology Cordell Juarez MD [facility] [place], [place] [address] (Arleen valdes) 07/27/2022 Office Visit Cardiology Cordell Juarez MD [facility] [address] [place], [place] [address] (Wo rk) documented as of this encounter Visit Diagnoses Not on filedocumented in this encounter Additional Health Concerns Assessment Noted Time PHQ-9 Depression Total Score: 10 04/01/2019 9:14 AM CD T documented as of this encounter Care Teams Urban Designer Relationship Specialty Start Date End Date [facility], [facility] PCP - General 06/25/19 02/22/20 [address] [id number] documented as of this encounter
--- OUTSIDE RECORDS SUMMARY | 2022-04-10 09:53 | XMS_ITS | Encounter Summary ---
:2000 Author Organization [place] Address [address] [place] [address] Care Team Providers Name Role Phone Magnus Zayas DO Primary Care Provider Magnus Zayas DO Unavailable [phone] Encounter Details Date Type Department Care Team Description 03/01/2020 Telephone [facility] Primary Care Magnus Zayas, Clinic DO [address] [place], [place] [phone] [place] [address] (Wo rk) Social History Tobacco Use Types [...] been in contact with No / Unsure 02/17/2020 12:18 PM CDT someone who was confirmed or suspected to have Coronavirus / COVID-19? documented as of this encounter Miscellaneous Notes Telephone Encounter - Lachelle Lares - 03/01/2020 1:10 PM CDT Left message to schedule 4 week follow up appointment with Dr. Zayas. Left message to schedule a nurse visit with clinic hours. AVS sent via my chart Lachelle Lares CMA at 1:11 PM on 03/01/2020. documented in this encounter Plan of Treatment Upcoming Encounters Date Type Specialty Care Team Description 07/27/2022 Ancillary Procedure Cardiology Cordell Juarez MD [address] [place], [place] [address] (Wo rk) 07/27/2022 Office Visit Cardiology Cordell Juarez MD [address] [place], [place] [address] (Wo rk) documented as of this encounter Visit Diagnoses Not on filedocumented in this encounter Additional Health Concerns Assessment Noted Time PHQ-9 Depression Total Score: 10 04/01/2019 9:14 AM CD T documented as of this encounter Care Teams Food And Beverage Order Clerk Relationship Specialty Start Date End Date Magnus Zayas, PCP - General Student in organized 02/23/20 09/17/[address] education/training program [address] [place] [address] Magnus Zayas, Assigned PCP 02/28/2004/[address] [place] [address] documented as of this encounter
--- OUTSIDE RECORDS SUMMARY | 2022-04-10 09:53 | XMS_ITS | Encounter Summary ---
:2000 Author Organization [facility] Address [address] [place] [address] Care Team Providers Name Role Phone Magnus Zayas DO Primary Care Provider [phone] Magnus Zayas DO Unavailable [phone] Reason for Visit CV Testing (Routine) - Closed Specialty Diagnoses / Procedures Referred By Contact Refer red To Contact Cardiology Diagnoses S/P Fontan procedure [facility] Cv Cardiac Svc Rscc Procedures Echo Congenital Adult HC ECHO XTHORACIC,NEHEMIAS ANOM,COMPLETE HC ECHO CONGENITAL W/CONTRAST HC ECHO CONGENITAL W/O CONTRAST HC DOPPLER ECHO PULSED, COMPLETE HC DOPPLER ECHO COLOR FLOW VELOCITY MAP 9 [facility] [id number] [place] [address] HC STATISTIC IV [place] [address] [address] [place] [address] Phone: Fax: Referral ID Status Reason Start Date Expiration Date Visits Requ ested Visits Authorized [id number] Closed 01/21/2019 01/21/2020 1 1 Encounter Details Date Type Department Care Team Description 09/09/2020 Ancillary [facility] Cordell Juarez, S/P Fontan Procedure [facility] Marie DUPREE procedure 909 [facility] [address] [place], [place] [address] [place] [phone] Social History Tobacco Use Types Packs/Day Years [...] 07/27/2022 Ancillary Procedure Cardiology Cordell Juarez MD [address] [place] [id number] (Wo rk) 07/27/2022 Office Visit Cardiology Cordell Juarez MD [address] [place] [address] (Wo rk) documented as of this encounter Procedures Procedure Name Priority Date/Time Associated Comments Diagnosis ECHO CONGENITAL Routine 09/09/2020 9:22 AM S/P Fontan Result s for this ADULT (TTE) CDT procedure procedure are i n the results section. documented in this encounter Results ECHO CONGENITAL ADULT (TTE) (09/09/2020 9:22 AM CDT) Anatomical Region Laterality Modality Echocardiography Specimen (Source) Anatomical Collection Method Collection Time Re ceived Time Location / / Volume Laterality 09/09/2020 9:02 AM CDT Narrative 09/09/2020 9:38 AM CDT [id number]^JAVIER^CORDELL^RYAN ? Study ID: [id number] ?[facility] ?[facility] ?[address] ?[place] [address] ? Pediatric Echocardiogram Name: JUDE BILLS L Study Date: 09/09/2020 09:02 AM ?Patient Location: [facility] ?Age: 20 yrs : 2000 ?BP: 117/72 mmHg Gender: Male Patient Class: Outpatient ?Height: 162 cm Ordering Provider: CORDELL JUAREZ ? 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 Previous device closur e of Fontan fenestration. The Fontan fenestration device is in goo d position. There is laminar phasic color flow in the Fortino and Fontan shunt . The right ventricle has normal contractility. Upper mild tricuspid valv e insufficiency.There is no diastolic runoff in the abdominal aorta. No perica rdial effusion. No significant change from last echocard iogram. Technical information: A complete two dimensional, MMODE, spect ral and color Doppler transthoracic echocardiogram is performed. The study q uality is fair. Images are obtained from parasternal, apical, subcostal and suprasternal notch views. Prior echocardiogram available for comparison. No ECG tracing available. Segmental Anatomy: There is normal atrial arrangement. Abse nt left atrioventricular connection. Systemic and pulmonary veins: There is laminar phasic color flow in th e Fortino shunt. Patient has undergone Fontan operation. The Fontan connection is widely patent with phasic laminar flow. Post device closure of Fontan fene stration. The Fontan fenestration device is in good position. Color flow d emonstrates flow from at least one pulmonary vein entering the left atrium. Atria and atrial [...] ventricle. There is mild right ventricular enlargement. Normal right ventricular systolic functi on. There is a large anterior malalignment ventricular [...] cannulas and leads : No pericardial effusion. MMode/2D Measurements & Calculations IVC diam: 1.9 cm Time Measurements LVET: 0.32 sec Doppler Measurements & Calculations MV E max dhruv: 64.5 cm/sec ? MV dec slope: 184.0 cm/sec2 MV A max dhruv: 25.2 cm/sec ? MV dec time: 0.35 sec MV E/A: 2.6 Ao V2 max: 99.0 cm/sec ?LV dP/dt: 1010 mmHg/s Ao max P.9 mmHg TV E max dhruv: 73.2 cm/sec ? LV Tei Index: 0.49 TV A max dhruv: 26.2 cm/sec asc Ao max dhruv: 77.1 cm/sec ? desc Ao max dhruv: 98.5 cm/sec asc Ao max P.4 mmHg ? desc Ao max P.9 mmHg MV Close to Open: 0.48 sec Report approved by: Abi Zaldivar MD on 09/09/2020 09:38 AM Procedure Note Abi Zaldivar MD - 09/09/2020Fo rmatting of this note might be different from the original. 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 Previous device closur e of Fontan fenestration. The Fontan fenestration device is in goo d position. There is laminar phasic color flow in the Fortino and Fontan shunt . The right ventricle has normal contractility. Upper mild tricuspid valv e insufficiency.There is no diastolic runoff in the abdominal aorta. No perica rdial effusion. No significant change from last echocard iogram. Technical information: A complete two dimensional, MMODE, spect ral and color Doppler transthoracic echocardiogram is performed. The study q uality is fair. Images are obtained from parasternal, apical, subcostal and suprasternal notch views. Prior echocardiogram available for comparison. No ECG tracing available. Segmental Anatomy: There is normal atrial arrangement. Abse nt left atrioventricular connection. Systemic and pulmonary veins: There is laminar phasic color flow in th e Fortino shunt. Patient has undergone Fontan operation. The Fontan connection is widely patent with phasic laminar flow. Post device closure of Fontan fene stration. The Fontan fenestration device is in good position. Color flow d emonstrates flow from at least one pulmonary vein entering the left atrium. Atria and atrial [...] ventricle. There is mild right ventricular enlargement. Normal right ventricular systolic functi on. There is a large anterior malalignment ventricular [...] cannulas and leads : No pericardial effusion. MMode/2D Measurements & Calculations IVC diam: 1.9 cm Time Measurements LVET: 0.32 sec Doppler Measurements & Calculations MV E max dhruv: 64.5 cm/sec MV dec slope: 184.0 cm/sec2 MV A max dhruv: 25.2 cm/sec MV dec time: 0 .35 sec MV E/A: 2.6 Ao V2 max: 99.0 cm/sec LV dP/dt: 1010 mm Hg/s Ao max P.9 mmHg TV E max dhruv: 73.2 cm/sec LV Tei Index: 0.49 TV A max dhruv: 26.2 cm/sec asc Ao max dhruv: 77.1 cm/sec desc Ao max dhruv: 98.5 cm/sec asc Ao max P.4 mmHg desc Ao max P.9 mmHg MV Close to Open: 0.48 sec Report approved by: Abi Zaldivar MD on 09/09/2020 09:38 AM Cordell Juarez MD CV ECHO ORDERABLES documented in this encounter Visit Diagnoses Diagnosis S/P Fontan procedure Other postprocedural status documented in this encounter Additional Health Concerns Assessment Noted Time PHQ-9 Depression Total Score: 10 04/01/2019 9:14 AM CD T documented as of this encounter Care Teams Manufacturers Agent Relationship Specialty Start Date End Date Magnus Zayas, PCP - General Student in organized 02/23/20 09/17/[address] education/training program [address] [place] [address] Magnus Zayas, Assigned PCP 02/28/2004/[address] [place] [address] documented as of this encounter
--- OUTSIDE RECORDS SUMMARY | 2022-04-10 09:53 | XMS_ITS | Encounter Summary ---
:2000 Author Organization [facility] Address [address] [place] [address] Care Team Providers Name Role Phone Magnus Zayas DO Primary Care Provider [phone] Reason for Visit Reason Comments Establish Care Pt is lookng for new PCP. Encounter Details Date Type Department Care Team Description 02/23/2020 [facility] Visit [facility] Magnus Zayas episode of recurrent major depressive disorder (H) (Primary Dx); Care Clinic DO Jostin Encounter for immunization 909 [facility] [address] [facility] [address] [facility] [address] [place] [address] [phone] Social History Tobacco Use Types Packs/Day Years [...] / COVID-19? documented as of this encounter Progress Notes Marquez Magnus Jostin, DO - 02/23/2020 12:50 PM CDT Images from the original note were not included. Resident video visit documentation This patient is being evaluated via a billable video visit as an alternative to an in-person visit. The patient has been notified of following: This video visit will be conducted via a call between you and your physician/provider. We have found that certain health care needs can be provided without the need for an in-person physical exam. This service lets us provide the care you need with a video conversation. If a prescription is necessarywe can send it directly to your pharmacy. If lab work is needed we can place an order for that and you can then stop by our lab to have the test done at a later time. If during the course of the call the physician/provider feels a video visit is not appropriate, you will not be charged for this service. Patient has given verbal consent for the virtual video visit? Yes Did patient initiate this virtual visit? Yes Person spoken to: (patient name and anyone else listening in--family member, career development associate, interpreter translator, etc.) Jude Bills This was a synchronous virtual visit Location of patient: (specify: home, office, health care facility) home Location of physician resident: (specify: in clinic, in home office): home Location of teaching physician: (specify: in clinic, in home office): clinic Department name: Medicine Mode of communication: Video Conference via (specify: AmericanWell, Doxrafita) Doximity Time video initiated: 12:56 Time video ended: 1:17 Total length of video visit: 21 mins Staffed with: Dr. 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 ) Patient wishes to establish with an adult PCP, since he has followed only with peds subspecialists until now. He has no concerns today. He lives with his girlfriend, recently moved in with her. 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 He does not smoke cigarrettes, vape, drink alcohol or use illicit drugs. Heeats a healthy diet. He is not currently sexually active with his girlfriend. He drives and wears a seatbelt. Does not ride a bike. Wears a mask in public. He does note that he has been depressed in the past and has been hospitalized to a [facility] in the past. The most recent hospitalization was two years ago for suicidal ideation. He is not suicidal now, but he does endorse symptoms of depression. He gets very poor sleep and has trouble falling asleep due to racing thoughts. He has poor appetite and east 1-2 meals per day and has lost weight recently. He enjoys video games, but does have loss of interest in other things that used to bring him nneka. Denies fever, chills, chest pain, SOB, abdominal pain, dysuria. PMHx: Past Medical History: Diagnosis Date ??? 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 Congenital anomalies of spleen Polysplenia ??? Esophageal reflux ??? 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 [...] Surgeon: Akash Graves MD; Location: [facility] FamHx: Family History Adopted: Yes Problem Relation Age of Onset ??? Unknown/Adopted Other child adopted from [facility] at 10mo of age ??? Unknown/Adopted Other ??? Unknown/Adopted Other Allergies: Allergies Allergen Reactions ??? Seasonal Allergies Itchy eyes, runny nose, hives when around tall grasses Meds: Current Outpatient Medications: ??? amoxicillin (AMOXIL) 500 MG capsule, Take 4 capsules (2,000 mg) by mouth as needed (one hour prior to dental cleanings), Disp: 20 capsule, Rfl: 3 ??? digoxin (DIGOX) 250 MCG tablet, Take 1 tablet (250 mcg) by mouth daily, Disp: 90 tablet, Rfl: 3 ??? furosemide (LASIX) 20 MG tablet, Take 0.5 tablets (10 mg) by mouth daily, Disp: 45 tablet, Rfl: 3 ??? metoprolol succinate ER (TOPROL-XL) 25 MG 24 hr tablet, Take 0.5 tablets (12.5 mg) by mouth daily, Disp: 45 tablet, Rfl: 3 ??? montelukast (SINGULAIR) 10 MG tablet, Take 1 tablet (10 mg) by mouth daily, Disp: 90 tablet, Rfl: 3 ??? omeprazole (PRILOSEC) [address] capsule, Take 1 capsule (20 mg) by mouth daily, Disp: 90 capsule,Rfl: 3 ??? sertraline (ZOLOFT) 25 MG tablet, Take 1 tablet (25 mg) by mouth daily If tolerating medicine after 2 weeks, can increase to 2 tablets (50 mg) daily, Disp: 60 tablet, Rfl: 1 ??? sildenafil (REVATIO) 20 MG tablet, Take 1 tablet (20 mg) by mouth three times daily for pulmonary hypertension. Never use with nitroglycerin, terazosin or doxazosin., Disp: 90 tablet, Rfl: 11 ??? spironolactone (ALDACTONE) 25 MG tablet, Take 1 tablet (25 mg) by mouth daily, Disp: 90 tablet, Rfl: 3 SocHx: Social History Socioeconomic History ??? Marital status: Single Spouse name: Not on file ??? Number of children: Not on file ??? Years of education: Not on file ??? Highest education level: Not on file Occupational History ??? Not on file Social Needs ??? Financial resource strain: Not on file ??? Food insecurity Worry: Not on file Inability: Not on file ??? Transportation needs Medical: Not on file Non-medical: Not on file Tobacco Use ??? Smoking status: Never Smoker ??? Smokeless tobacco: Never Used ??? Tobacco comment: none at home Substance and Sexual Activity ??? Alcohol use: No ??? Drug use: No ??? Sexual activity: Never Lifestyle ??? Physical activity Days per week: Not on file Minutes per session: Not on file ??? Stress: Not on file Relationships ??? Social connections Talks on phone: Not on file Gets together: Not on file Attends cheondoism service: Not on file Active member of club or organization: Not on file Attends meetings of clubs or organizations: Not on file Relationship status: Not on file ??? Intimate partner violence Fear of current or ex partner: Not on file Emotionally abused: Not on file Physically abused: Not on file Forced sexual activity: Not on file Other Topics Concern ??? Not on file Social History Narrative 12/23/19: Born in [place]. Abandoned around 8 months of age and lived in orphanage. [facility] to [facility] for repair of cardiac disease around age 2 and has been here ever since. Lives with girlfriend, girlfriend's father and his partner as it is closer to school. They have a cat but no bites or scratches and does not change litter. 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 No recreational drug use including IV drug use. Never sexually active. Spends most of his time at home or at work. No significant outdoor activities. Problem, Medication and Allergy Lists were reviewed and are current. Patient is a new patient to this clinic and so I reviewed/updated the Past Medical History, the Family History and the Social History. Review of Systems: ROS I have personally reviewed and updated the complete ROS on the day of the visit. Physical Exam: There were no vitals taken for this visit. There is no height or weight on file to calculate BMI. Vitals were reviewed Gen: Well-appearing, alert, NAD HEENT: NCAT, EOMI CV: Appears well-perfused Pulm: Normal respiratory effort Skin: No suspicious lesions or rashes visible Ext: FROM in b/l UE Psych: Normal mood and affect, logical thought processes Results: Admission on 01/11/2020, Discharged on 01/11/2020 Component Date Value Ref Range Status ??? Interpretation ECG 01/11/2020 Click View Image link to view waveform and result Final ??? WBC 01/11/2020 5.1 4.0 - 11.0 10e9/L Final ??? RBC Count 01/11/2020 5.45 4.4 - 5.9 10e12/L Final ??? Hemoglobin 01/11/2020 15.6 13.3 - 17.7 g/dL Final ??? Hematocrit 01/11/2020 47.3 40.0 - 53.0 % Final ??? MCV 01/11/2020 87 78 - 100 fl Final ??? MCH 01/11/2020 28.6 26.5 - 33.0 pg Final ??? MCHC 01/11/2020 33.0 31.5 - 36.5 g/dL Final ??? RDW 01/11/2020 14.8 10.0 - 15.0 % Final ??? Platelet Count 01/11/2020 213 150 - 450 10e9/L Final ??? Diff Method 01/11/2020 Automated Method Final ??? % Neutrophils 01/11/2020 58.1 % Final ??? % Lymphocytes 01/11/2020 28.8 % Final ??? % Monocytes 01/11/2020 10.5 % Final ??? % Eosinophils 01/11/2020 1.8 % Final ??? % Basophils 01/11/2020 0.6 % Final ??? % Immature Granulocytes 01/11/2020 0.2 % Final ??? Nucleated RBCs 01/11/2020 0 0 /100 Final ??? Absolute Neutrophil 01/11/2020 3.0 1.6 - 8.3 10e9/L Final ??? Absolute Lymphocytes 01/11/2020 1.5 0.8 - 5.3 10e9/L Final ??? Absolute Monocytes 01/11/2020 0.5 0.0 - 1.3 10e9/L Final ??? Absolute Eosinophils 01/11/2020 0.1 0.0 - 0.7 10e9/L Final ??? Absolute Basophils 01/11/2020 0.0 0.0 - 0.2 10e9/L Final ??? Abs Immature Granulocytes 01/11/2020 0.0 0 - 0.4 10e9/L Final ??? Absolute Nucleated RBC 01/11/2020 0.0 Final ??? Sodium 01/11/2020 138 133 - 144 mmol/L Final ??? Potassium 01/11/2020 4.0 3.4 - 5.3 mmol/L Final Specimen slightly hemolyzed, potassium may be falsely elevated ??? Chloride 01/11/2020 108 98 - 110 mmol/L Final ??? Carbon Dioxide 01/11/2020 26 20 - 32 mmol/L Final ??? Anion Gap 01/11/2020 4 3 - 14 mmol/L Final ??? Glucose 01/11/2020 103* 70 - 99 mg/dL Final ??? Urea Nitrogen 01/11/2020 18 7 - 30 mg/dL Final ??? Creatinine 01/11/2020 0.94 0.50 - 1.00 mg/dL Final ? ? GFR Estimate 01/11/2020 >90 >60 mL/min/[1.73_m2] Final Comment: Non GFR Calc Starting 06/03/2018, serum creatinine based estimated GFR (eGFR) will be calculated using the Chronic Kidney Disease Epidemiology Collaboration (CKD-EPI) equation. ? ? GFR Estimate If Black 01/11/2020 >90 >60 mL/min/[1.73_m2] Final Comment: GFR Calc Starting 06/03/2018, serum creatinine based estimated GFR (eGFR) will be calculated using the Chronic Kidney Disease Epidemiology Collaboration (CKD-EPI) equation. ??? Calcium 01/11/2020 9.0 8.5 - 10.1 mg/dL Final ??? N-Terminal Pro BNP Inpatient 01/11/2020 90 0 - 450 pg/mL Final Comment: Reference range shown and results flagged as abnormal are suggested inpatient cut points for confirming diagnosis if CHF in an acute setting. Establishing a baseline value for each individual patient is useful for follow-up. An inpatient or emergency department NT-proPBNP <300 pg/mL effectively rules out acute CHF, with 99% negative predictive value. The outpatient non-acute reference range for ruling out CHF is: 0-125 pg/mL (age 18 to less than 75) 0-450 pg/mL (age 75 yrs and older) ??? D Dimer 01/11/2020 0.5 0.0 - 0.50 ug/ml FEU Final Comment: This D-dimer assay is intended for use in conjunction with a clinical pretest probability assessment model to exclude pulmonary embolism (PE) and deep venous thrombosis (DVT) in outpatients suspected of PE or DVT. The cut-off value is 0.5 ug/mL FEU. ??? Troponin I 01/11/2020 0.00 0.00 - 0.08 ug/L Final Lab Results Component Value Date WBC 5.1 01/11/2020 HGB 15.6 01/11/2020 HCT 47.3 01/11/2020 PLT 213 01/11/2020 NA 138 01/11/2020 POTASSIUM 4.0 01/11/2020 CHLORIDE 108 01/11/2020 CO2 26 01/11/2020 BUN 18 01/11/2020 CR 0.94 01/11/2020 GLC 103 (H) 01/11/2020 SED 5 01/07/2013 DD 0.5 01/11/2020 NTBNPI 90 01/11/2020 NTBNP 121 03/13/2017 TROPONIN 0.00 01/11/2020 TROPI <0.015 12/24/2019 AST 27 12/18/2019 ALT 23 12/18/2019 ALKPHOS 67 12/18/2019 BILITOTAL 2.7 (H) 12/18/2019 INR 1.38 (H) 08/30/2018 Assessment and Plan Jude was seen today for establish care. Diagnoses and all orders for this visit: Moderate episode of recurrent major depressive disorder (H) He meets criteria for major depression. No active suicidal ideation or plan. Patient declined therapy referral for CBT but is interested in selective serotonin reuptake inhibitor. He tried Lexepro in the past but gave up after a couple weeks given lack of effect. He was counseled on the GI, sexual andfatigue side effects for Zoloft and encouraged to continue through mild SEs for at least several weeks and was also advised to uptitrate if he tolerates after 2 weeks. - sertraline (ZOLOFT) 25 MG tablet; Take 1 tablet (25 mg) by mouth daily If tolerating medicine after 2 weeks, can increase to 2 tablets (50 mg) daily - RTC in 4-6 weeks to eval effectiveness and side effects Preventive Care - needs HPV series - Needs TDaP - Needs Flu vaccine - Will schedule RN visit for the above, he might be able to get these on the day he schedules his EPappt. Options for treatment and follow-up care were reviewed with the patient. Jude Bills engaged in the decision making process and verbalized understanding of the options discussed and agreed with the final plan. Magnus Zayas DO Feb 23, 2020 Plan of care discussed with Dr. Scales. I personally reviewed the pertinent medical history and results. I discussed the patient???s diagnosis and treatment plan with the resident and the resident relayed our joint plan to the patient in synchrony. I agree with the information as documented with the following exceptions: none. Celeste Scales MD Internal Medicine documented in this encounter Nursing Notes Sofya Wen LPN - 02/23/2020 12:50 PM CDT Chief Complaint Patient presents with ??? Establish Care Pt is lookng for new PCP. Video Visit Technology for this patient: AmWell not working, patient has smart device, please try DoxTaodangpu Video with patient Sofya Wen LPN at 12:20 PM on 02/23/2020. documented in this encounter Plan of Treatment Upcoming Encounters Date Type Specialty Care Team Description 07/27/2022 Ancillary Procedure Cardiology Cordell Juarez MD [address] [place] [address] (Wo lucio) 07/27/2022 Office Visit Cardiology Cordell Juarez MD [address] [place] [address] (Wo lucio) documented as of this encounter Visit Diagnoses Diagnosis Moderate episode of recurrent major depr essive disorder (H) - Primary Encounter for immunization Need for other specified prophylactic va ccination against single bacterial disease documented in this encounter Additional Health Concerns Assessment Noted Time PHQ-9 Depression Total Score: 10 04/01/2019 9:14 AM CD T documented as of this encounter Care Teams Shipping Team Leader Relationship Specialty Start Date End Date Magnus Zayas, PCP - General Student in organized 02/23/20 09/17/[address] education/training program [address] [place] [address] documented as of this encounter
--- OUTSIDE RECORDS SUMMARY | 2022-04-10 09:53 | XMS_ITS | Encounter Summary ---
:2000 Author Organization [place] Address [address] [place] [address] Care Team Providers Name Role Phone [facility], [facility] Primary Care Provider [phone] Reason for Referral CV Testing (Routine) - Closed Specialty Diagnoses / Procedures Referred By Contact Refer red To Contact Cardiology Diagnoses S/P Fontan procedure Cordell Juarez MD Cardiac Services Procedures Stress Test - Peds DOPPLER ECHO COLOR FLOW VELOCITY MAP ECHO HEART XTHORACIC, STRESS/REST HC CARDIAC STRESS TST,COMPLETE C CARDIAC STRESS TST,DR SUPERV ONLY CARDIAC STRESS TEST, TRACING ONLY [address] [address] [address] [facility] C CARDIAC STRESS TST,INTERP/[place] [address] [place] [address] Phone: Referral ID Status Reason Start Date Expiration Date Visits Requ ested Visits Authorized [id number] Closed 03/11/2020 02/16/2021 1 1 Reason for Visit Reason Comments RECHECK S/P Fontan procedure Encounter Details Date Type Department Care Team Description 02/17/2020 Office Visit [facility] Cordell Juarez, S/P Fontan procedure (Primary Dx); Pediatric Specialty Tachycardia; Clinic [address] Hypoplastic left heart syndr ome; [address] [address] Palpitations; [address] [place], [place] [address] [phone] Social History Tobacco Use Types Packs/Day Years [...] Sign Reading Time Taken Comments Blood Pressure 116/78 02/17/2020 12:34 PM CDT Pulse 55 02/17/2020 12:34 PM CDT Temperature - - Respiratory Rate 18 02/17/2020 12:34 PM CDT Oxygen Saturation 97% 02/17/2020 12:34 PM CDT Inhaled Oxygen Concentration - - Weight 63.3 kg (139 lb 8.8 oz) 02/17/2020 12:34 PM CDT Height 163.6 cm (5' 4.41) 02/17/2020 12:34 PM CDT Body Mass Index 23.65 02/17/2020 12:34 PM CDT documented in this encounter Patient Instructions Patient InstructionsLohrCordell MD - 02/17/2020 12:30 PM CDT You were seen today in the Pediatric Cardiology Clinic Cardiology Providers you saw during your visit: Cordell Juarez MD Chief Complaint: Bradycardia and Fatigue Results: Better on 12.5 mg metoprolol XL, no palpitations Recommendations: Stop metoprolol 02/17 Set up CPX ([phone] [facility]) , Holter [address] Jamison ([facility] nurses) SBE prophylaxis: Yes_X__ No____ Exercise restrictions: Yes___ No__X__ If yes list restrictions: Rest if tired Work restrictions: Yes___ No___X_ If yes list restrictions: Does better with day and evenign shifts Follow-up: Dr. Jamison after testing Dr. Juarez 6 months (June 2020) with ECG and echo [facility] [phone] Thank you for your visit today. If you have questions about today's visit, please call [facility] at [phone] or [facility] Nurse Line [phone] For after hours urgent needs call [phone] and ask to speak to the Pediatric Cardiology Physician marketing assistant retail division. For emergencies call [phone]. documented in this encounter Progress Notes Cordell Juarez MD - 02/17/2020 12:30 PM CDT Pediatric Cardiology Visit Patient: Jude Bills Date of : 2000 Age: 19 yo Date of Visit: Feb 17, 2020 PCP: Stephen Sauceda Dear Dr. Sauceda, I had the pleasure of seeing your patient, Jude Bills, in the Pediatric Cardiology Clinic at [facility] on Feb 17, 2020. 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 He had catheter closure of his Fontan fenestration at the [facility] in January 2007. Jude has a history of atrial atrial tachycardia that improved on metoprolol. Lately he has had fatigue and exercise intolerance that has improved with weaning off of metoprolol. He has intermittent chest pain, that may ne ectopy or non cardiac pain. LEedema that is improved on low dose diuretic.Exercise intolerance that improved on low dose lasix, sildenafil and omeprazole. Jude was seen in the ED in June of this year for influenza. He was stable from a cardiovascular standpoint. He was admitted in December with primary herpes stomatis. He has recovered well. Jude is living in [place] and looking for a job. He would like to go back to school and finish nursing classes. He exercises as possible and is aware of restrictions on heavy weight lifting. He has been feeling well with no ankle edema, SOB, sustained arrhythmias, abdominal distension, diarrhea or episodes of bleeding. He is not on any anticoagulation due to multiple episodes of bleeding (most recently severe psoashemorrhage in 2019). Jude reports that he is still covered by his parents insurance and has access to his medications. Jude sees the dentist regularly and uses antibiotic prophylaxis for SBE. 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 Last seen in Ed June 2019 with influenza Admitted December 2019 with herpes stomatitis SH: Family in [place]. Living with girlfriends family in [place]. 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 Denies EtoH, smoking, drug use. Prescription Medications as of 02/17/2020 Rx Number Disp Refills Start End Last Dispensed Date Next Fill Date Owning Pharmacy furosemide (LASIX) 20 MG tablet 45 tablet 3 02/17/2020 [facility] [address] [place] [address] N.E. Sig: Take 0.5 tablets (10 mg) by mouth daily Class: E-Prescribe Route: Oral metoprolol succinate ER (TOPROL-XL) 25 MG 24 hr tablet 45 tablet 3 02/17/2020 [facility] [address] [place] [address] N.E. Sig: Take 0.5 tablets (12.5 mg) by mouth daily Class: E-Prescribe Route: Oral montelukast (SINGULAIR) 10 MG tablet 90 tablet 3 02/17/2020 [facility] [address] [place] [address] N.E. Sig: Take 1 tablet (10 mg) by mouth daily Class: E-Prescribe Route: Oral spironolactone (ALDACTONE) 25 MG tablet 90 tablet 3 02/17/2020 [facility] #[address] [place], [place] [id number] [facility] N.. Sig: Take 1 tablet (25 mg) by mouth daily Class: E-Prescribe Route: Oral amoxicillin (AMOXIL) 500 MG capsule 20 capsule 3 04/01/2019 [facility] #[address] [place] [address] 3 Sig: Take 4 capsules (2,000 mg) by mouth as needed (one hour prior to dental cleanings) Class: E-Prescribe Route: Oral digoxin (DIGOX) 250 MCG tablet 90 tablet 3 12/31/2019 [facility] #[id number] - [place] [id number] [facility].. Sig: Take 1 tablet (250 mcg) by mouth daily Class: E-Prescribe Route: Oral omeprazole (PRILOSEC) [address] capsule 90 capsule 3 11/04/2019 [facility] [address] [place] [address] 3 Sig: Take 1 capsule (20 mg) by mouth daily Class: E-Prescribe Route: Oral sildenafil (REVATIO) 20 MG tablet 90 tablet 11 11/20/2019 [facility] #1598 - [place] [id number] [facility] N. Sig: Take 1 tablet (20 mg) by mouth three times daily for pulmonary hypertension. Never use with nitroglycerin, terazosin or doxazosin. Class: E-Prescribe Taking 20 mg lasix daily FH: Lumarina is adopted. No FH known. PE: His height is 1.636 m (5' 4.41) and weight is 63.3 kg (139 lb 8.8 oz). His blood pressure is 116/78 and his pulse is 55. His respiration is 18 and oxygen saturation is 97%. His body mass index is 23.65 kg/m??. His body surface area is 1.7 meters squared. In general, he is a very well-appearing young man with no central or peripheral cyanosis. Head and neck examination is unremarkable. Pupils arereactive and sclera are not jaundiced. There is no conjunctival injection or discharge. Mucous membranes are pink and moist. Dentition appears healthy.. Neck is supple. Lungs are clear to auscultation bilaterally. He has a well-healed midline sternotomy scar with a normal S1 and a single S2. He has a g rade 2/6 systolic ejection murmur at the left upper sternal border, and no rubs, gallops or diastolic murmurs. Abdominal examination is benign with no hepatosplenomegaly or masses. Radial and femoral pulses are normal and LE extremities are warm and well perfused with no edema and good capillary refill. He is oriented and responsive. He moves all extremities equally with normal tone. Recent Results (from the past 4320 hour(s)) Echo Pediatric Congenital (TTE) Narrative [id number]^ALFONSO^JALEN Study ID: [id number] [place] [address] Pediatric Echocardiogram __ Name: JUDE BILLS Study Date: 12/24/2019 09:36 AM Patient Location: URU6 Age: 19 yrs : 2000 BP: 116/73 mmHg Gender: Male HR: 58 Patient Class: Inpatient Height: 64 in Ordering Provider: JALEN HAMILTON Weight: 147 lb BSA: 1.7 m2 Performed By: Cordell Ly RCCS Report approved by: Jayme Swan MD Reason For Study: Congenital Abnormalities __ ------CONCLUSIONS------ Double outlet right ventricle, transposition of the [...] effusion. No significant change from last echocardiogram. __ Technical information: A complete two dimensional, MMODE, spectral and color Doppler transthoracic echocardiogram is [...] good position. Color flow demonstrates flow from at least one pulmonary vein [...] right ventricular function is qualitatively mildly depressed. There is a large anterior malalignment ventricular [...] catheters, cannulas and leads: No pericardial effusion. MMode/2D Measurements & Calculations LVMI(BSA): 26.1 grams/m2 LVMI(Height): 12.2 RWT(MM): 0.43 Doppler Measurements & Calculations MV E max dhruv: 118.0 cm/sec Ao V2 max: 107.6 cm/sec MV A max dhruv: 55.3 cm/sec Ao max P.6 mmHg MV E/A: 2.1 LV V1 max: 74.4 cm/sec TR max dhruv: 491.7 cm/sec LV V1 max P.2 mmHg TR max P.7 mmHg asc Ao max dhruv: 66.6 cm/sec desc Ao max dhruv: 101.7 cm/sec asc Ao max P.8 mmHg desc Ao max P.1 mmHg [place] Z-Scores (Measurements & Calculations) Measurement NameValue Z-ScorePredictedNormal Range IVSd(MM) 0.63 cm -2.2 0.95 0.67 - 1.23 LVIDd(MM) 3.1 cm -5.2 5.0 4.2 - 5.7 LVIDs(MM) 1.8 cm -4.0 3.2 2.5 - 3.9 LVPWd(MM) 0.66 cm -1.9 0.89 0.65 - 1.13 LV mass(C)d(MM) 45.7 grams-6.3 158.3 107.4 - 233.4 FS(MM) 40.9 % 1.5 34.9 28.6 - 42.6 Report approved by: Janee Serna 12/24/2019 11:01 AM MRI 05/2019: Double outlet right ventricle, transposition [...] 12 lead ECG today: sinus rhythm at 58 bpm. Mild IVCD. RVH with lateral T wave inversion. No significant changes from prior ECG's Cath Data 01/2016: Fontan pressures 14 mean, PAP 14 mean LV EDP 10 CI 3.1 L/min/m2. Last Comprehensive Metabolic Panel: Sodium Date Value [...] 01/11/2020 9.0 8.5 - 10.1 mg/dL Final Liver Function Studies - Recent Labs Lab Test 08/19/19 1025 PROTTOTAL 8.0 ALBUMIN 4.4 BILITOTAL 1.0 ALKPHOS 83 AST 20 ALT 27 Digoxin level 08/19/19 : 1.1 Impression and Plan: Jude is a 20 yo male s/p Fontan for heterotaxy, DORV, d-TGA, pulmonary stenosis and LV hypoplasia. He had device occlusion of his fenestration and has been bothered the last several years by palpitations and chest pain. He is currently asymptomatic from cardiac stand point and last set of labs showed normal hepatic and renal function, with no hypoproteinemia. Given hemorrhagic events, the warfarin given for risk of thomboembolism is been held. Will hold off on prophylactic anticoagulation at this time. He has been fatigued with lower heart rates. Feeling better on reduced metoprolol and would like to try being off for a while. Recommendations: Stop metoprolol CPX 48 hour Holter or zio patch to be placed about 2 weeks off of meds. Follow up Dr. Jamison in EP clinic 2-[address] Juarez Jun 2020 with echo, ECG and labs Call if new concerns. Sincerely Cordell Juarez M.D. Residential Specialist of Pediatrics Pediatric and Adult Congenital Cardiology [facility] Pediatric Cardiology Office [phone] Adult Congenital Cardiology Triage and Scheduling [phone] documented in this encounter Nursing Notes Kim Summers MA - 02/17/2020 12:30 PM CDT Informant- Luke is accompanied by self Reason for Visit- S/P Fontan procedure Vitals signs- BP 116/78 Pulse 55 Resp 18 Ht 1.636 m (5' 4.41) Wt 63.3 kg (139 lb 8.8 oz) SpO2 97% BMI23.65 kg/m?? There are concerns about the child's exposure to violence in the home: No Face to Face time: 5 minutes Kim Summers MA documented in this encounter Plan of Treatment Upcoming Encounters Date Type Specialty Care Team Description 07/27/2022 Ancillary Procedure Cardiology Cordell Juarez MD [facility] [place] [address] (Wo rk) 07/27/2022 Office Visit Cardiology Cordell Juarez MD [address] [facility] [address] [place] [address] (Arleen valdes) documented as of this encounter Procedures Procedure Name Priority Date/Time Associated Diagnosis Comme [facility] ELECTROCARDIOGRAM Routine 02/17/2020 S/P Fontan procedu re Results for this REPORT, SUBSEQUENT - ED proc edure are in ONLY the results section. documented in this encounter [...] (kg) 63.90 Reading Akash Mancilla MD Fell Sterling Randle MD INTRODUCTION The patient is [...] mouthpiece with a nose clip in place. [id number] measurements of respiratory rate, VE, VO 2, [...] (L/min) 81.4 141 (123 measured) 57.7% VE/VCO2 [place] 31 Peak VT (L) 1.93 N/A N/A Minimum VE/VCO2 28 Peak RR (min -1) 42 N/A N/A VE/VCO2 @ AT 29 Breathing [place] 34% using measured MVV >30% N/A RER [...] multiple cardiac surgeries . Akash Kathleen MD, [facility] anthropology professor, Pediatric Cardiolog y Director, Pediatric Cardiac Catheterisat ion Pager: [phone] [email or web address] Cordell Juarez MD CV CARDIAC SERVICES ORDERABL ES ELECTROCARDIOGRAM REPORT (02/17/2020) Specimen (Source) Anatomical Location Collection Method / Collectio n Time Received Time / Laterality Volume 02/17/2020 Narrative This result has an attachment that is no t available. Cordell Juarez MD PROCEDURES documented in this encounter Visit Diagnoses Diagnosis S/P Fontan procedure - Primary Other postprocedural status Tachycardia Tachycardia, unspecified Hypoplastic left heart syndrome Palpitations Bradycardia Other specified cardiac dysrhythmias S/P Fontan procedure Other postprocedural status documented in this encounter Additional Health Concerns Assessment Noted Time PHQ-9 Depression Total Score: 10 04/01/2019 9:14 AM CD T documented as of this encounter Care Teams Toe Puller Relationship Specialty Start Date End Date [facility], [facility] PCP - General 06/25/19 02/22/[address] [place] [address] documented as of this encounter
--- OUTSIDE RECORDS SUMMARY | 2022-04-10 09:53 | XMS_ITS | Encounter Summary ---
:2000 Author Organization [place] Address [facility] [place] [address] Care Team Providers Name Role Phone [facility] Primary Care Provider [phone] Reason for Visit Reason Comments Medication Refill Encounter Details Date Type Department Care Team Description 12/29/2019 Refill [facility] Cordell Juarez MD Medication Refill Pediatric Specialty [address] [place], [place] [address] [place] [address] [place] [address] Social History Tobacco Use [...] Ancillary Procedure Cardiology Cordell Juarez MD [address] [place] [address] (Wo rk) 07/27/2022 Office Visit Cardiology Cordell Juarez MD [address] [place] [address] (Wo rk) documented as of this encounter 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 Additional Health Concerns Assessment Noted Time PHQ-9 Depression Total Score: 10 04/01/2019 9:14 AM CD T documented as of this encounter Care Teams Rolloff Truck Driver Relationship Specialty Start Date End Date Clinic, [facility] PCP - General 06/25/19 02/22/20 [address] [place] [address] documented as of this encounter
--- OUTSIDE RECORDS SUMMARY | 2022-04-10 09:53 | XMS_ITS | Encounter Summary ---
:2000 Author Organization [place] Address [facility] [place] [address] Care Team Providers Name Role Phone Magnus Zayas DO Primary Care Provider [phone] Magnus Zayas DO Unavailable [phone] Encounter Details Date Type Department Care Team Description 03/17/2020 Travel Social History Tobacco Use Types Packs/Day [...] 07/27/2022 Ancillary Procedure Cardiology Cordell Juarez MD [facility] [address] [place], [place] [address] (Wo rk) 07/27/2022 Office Visit Cardiology Cordell Juarez MD [address] [place] [address] (Wo rk) documented as of this encounter Visit Diagnoses Not on filedocumented in this encounter Additional Health Concerns Assessment Noted Time PHQ-9 Depression Total Score: 10 04/01/2019 9:14 AM CD T documented as of this encounter Care Teams Carriage Operator Relationship Specialty Start Date End Date Magnus Zayas, PCP - General Student in organized 02/23/20 09/17/[address] education/training program [address] [place], [place] [id number] Magnus Zayas, Assigned PCP 02/28/2004/[address] [place] [address] documented as of this encounter
--- OUTSIDE RECORDS SUMMARY | 2022-04-10 09:53 | XMS_ITS | Encounter Summary ---
:2000 Author Organization [place] Address [address] [place] [address]. [place] [address] Care Team Providers Name Role Phone [facility], [facility] Primary Care Provider [phone] Encounter Details Date Type Department Care Team Description 02/17/2020 Travel Social History Tobacco Use Types Packs/Day [...] Ancillary Procedure Cardiology Cordell Juarez MD [facility] [address] [place], [place] [address] (Arleen valdes) 07/27/2022 Office Visit Cardiology Cordell Juarez MD [facility] [address] [place], [place] [address] (Wo rk) documented as of this encounter Visit Diagnoses Not on filedocumented in this encounter Additional Health Concerns Assessment Noted Time PHQ-9 Depression Total Score: 10 04/01/2019 9:14 AM CD T documented as of this encounter Care Teams Director Community Organization Relationship Specialty Start Date End Date [facility], [facility] PCP - General 06/25/19 02/22/20 [address] [id number] documented as of this encounter
--- OUTSIDE RECORDS SUMMARY | 2022-04-10 09:53 | XMS_ITS | Encounter Summary ---
:2000 Author Organization [place] Address [facility] [place] [address] Care Team Providers Name Role Phone Magnus Zayas DO Primary Care Provider Magnus Zayas DO Unavailable [phone] Reason for Referral CV Testing (Routine) - Closed Specialty Diagnoses / Procedures Referred By Contact Refer red To Contact Diagnoses Palpitations Cordell Juarez MD Procedures Holter Monitor 48 hour Adult Pediatric ZZC AMB BP MONITORING W/SW >=24 HR, RECORD/SCAN/INTRP/RPT ZZ[facility] HOLTER RECORDING 24 HRS ZZHC HOLTER SCAN 24 HRS OK HOLTER RECORDING 24 HRS OK HOLTER SCAN 24 HRS 2450 [facility] [id number] [place] AMB BP MONITORING W/SW >= 24 HR, RECORD/SCAN/INTRP/RPT HOLTER RECORDING 24 HRS HC HOLTER SCAN 24 HRS, [place] [address] Referral ID Status Reason Start Date Expiration Date Visits Requ ested Visits Authorized [id number] Closed 09/09/2020 09/09/2021 1 1 Specialty Diagnoses / Procedures Referred By Contact Refer red To Contact Cordell Juarez M D [facility] [address] [place], [place] [address] Referral ID Status Reason Start Date Expiration Date Visits Requ ested Visits Authorized Reason for Visit Reason Comments Follow Up 19 year old male with 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 (Primary Dx); Heart Clinic Palpitations [id number] [place], [place] OQ[address] [place], [place] [phone] (Wo rk) Social History Tobacco Use Types [...] Sign Reading Time Taken Comments Blood Pressure 100/68 09/09/2020 9:31 AM CDT Pulse 65 09/09/2020 9:31 AM CDT Temperature - - Respiratory Rate - - Oxygen Saturation 95% 09/09/2020 9:31 AM CDT Inhaled Oxygen Concentration - - Weight 64 kg (141 lb) 09/09/2020 9:31 AM CDT Height 163.3 cm (5' 4.3) 09/09/2020 9:31 AM CDT Body Mass Index 23.98 09/09/2020 9:31 AM CDT documented in this encounter Patient Instructions Patient InstructionsJohnson, Arthur, RN - 09/09/2020 10:00 AM CDT You were seen today in the Adult Congenital and Cardiovascular Genetics Clinic at the [facility]. Cardiology Providers you saw during your visit: Dr Cordell Juarez Diagnosis: Hypoplastic left heart syndrome Results: The results of your echo and EKG were reviewed with you in clinic today Recommendations: 1. Continue to eat a heart healthy, low salt diet. 2. Continue to get 20-30 minutes of aerobic activity, 4-5 days per week. Examples of aerobic activity include walking, running, swimming, cycling, etc. 3. Continue to observe good oral hygiene, with regular dental visits. 4. We will have labs drawn today 5. We will place a 48 hours holter monitor 6. Ok to stop taking your Metoprolol 7. You may visit https://CyberSponse.gov/covid19/vaccine/connector/ to sign up for the vaccine connector to see when and where you can get the vaccine or visit My Chart to set up an appointment as well. SBE prophylaxis: Yes__x__ No____ Lifelong Bacterial Endocarditis Prophylaxis: YES____ NO____ [...] but returns within 1-2 days) Exercise restrictions: Yes____ No__x__ If yes, list restrictions: Must be allowed to rest if fatigued or SOB Work restrictions: Yes____ No__x__ If yes, list restrictions: FASTING CHOLESTEROL was checked in the last 5 years YES_x__ NO___ 2019 Continue to eat a heart healthy, low salt diet. ____ Fasting lipid panel order today ____ No changes in medications ____ I recommend the following changes in your cholesterol medications.: ____ Please follow up for cholesterol screening at your primary care physician Follow-up: Follow up with Dr Juarez in 6 months. We will call you with the results of your labs and holter monitor. For after hours urgent needs, call [phone] and ask to speak to the Adult Congenital Physician vp production. Mention Job Code 0401. For emergencies call 911. For any scheduling needs, please call Florinda Robb Procedure Photoengraving Finisher, at [phone] Thank you for your visit today! If you have questions or concerns about today's visit, please call me. Arthur Limon RN, BSN Cardiology Test Driller [facility] [phone] [place] [address] Mail Code 2121CK [place] [address] documented in this encounter Progress Notes Cordell Juarez MD - 09/09/2020 10:00 AM CDT Adult Congenital Cardiology Visit Patient: Jude Bills Date of : 2000 Age: 19 yo Date of Visit: Sep 09, 2020 PCP: Stephen Sauceda Dear Dr. Sauceda, I had the pleasure of seeing your patient, Jude Bills, in the [facility] clinic at [facility] on Sep 09, 2020. 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 He underwent a central shunt, followed by a Fortino procedure and completion of a Fontan procedure at the [facility] in [place]. He had catheter closure of his Fontan fenestration at the [facility] in January 2007.Jude has a history of atrial atrial tachycardia that improved on metoprolol. Lately he has had fatigue and exercise intolerance that has improved with weaning off of metoprolol. He has intermittent chest pain, that may be ectopy or non cardiac pain. Hx of LE edema that is improved on low dose diuretic. Exercise intolerance that improved on low dose lasix, sildenafil and omeprazole. Jude is living in [place] and looking for a job. He would like to go back to school and finish nursing classes. He is working out in a weight room, no martial arts. No change in exercise tolerance. He is aware of restrictions on heavy weight lifting. He has been feeling well with no ankle edema, SOB, s ustained arrhythmias, abdominal distension, diarrhea or episodes of bleeding. He does have rare short episodes of palpitations that last a few seconds when is active. He is not on any anticoagulation due to multiple episodes of bleeding (most recently severe psoas hemorrhage in 2019). 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 Living with girlfriends family in [place]. 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 Denies EtoH, smoking, drug use. Prescription Medications as of 09/09/2020 Rx Number Disp Refills Start End Last Dispensed Date Next Fill Date Owning Pharmacy amoxicillin (AMOXIL) 500 MG capsule 20 capsule 3 04/01/2019 [id number] 3 Sig: Take 4 capsules (2,000 mg) by mouth as needed (one hour prior to dental cleanings) Class: E-Prescribe Route: Oral digoxin (DIGOX) 250 MCG tablet 90 tablet 3 12/31/2019 [facility] [address] [place] [address] [facility] N[address] Sig: Take 1 tablet (250 mcg) by mouth daily Class: E-Prescribe Route: Oral furosemide (LASIX) 20 MG tablet 45 tablet 3 02/17/2020 [facility] [address] [place] [id number] [place] [address] N.E. Sig: Take 0.5 tablets (10 mg) by mouth daily Class: E-Prescribe Route: Oral metoprolol succinate ER (TOPROL-XL) 25 MG 24 hr tablet 45 tablet 3 02/17/2020 [facility] [address] [place] [address] [facility] Sig: Take 0.5 tablets (12.5 mg) by mouth daily Class: E-Prescribe Route: Oral montelukast (SINGULAIR) 10 MG tablet 90 tablet 3 02/17/2020 [facility][id number] - [place], [facility] [address] [facility] Sig: Take 1 tablet (10 mg) by mouth daily Class: E-Prescribe Route: Oral omeprazole (PRILOSEC) [address] capsule 90 capsule 3 11/04/2019 [facility][id number] - [place], [facility] [facility] 3 Sig: Take 1 capsule (20 mg) by mouth daily Class: E-Prescribe Route: Oral sertraline (ZOLOFT) 25 MG tablet 60 tablet 0 05/25/2020 [facility][id number] - [place], [facility] [address] [facility] [address] Sig: TAKE 1 TABLET (25 MG) BY MOUTH DAILY IF TOLERATING MEDICINE AFTER 2 WEEKS, CAN INCREASE TO 2 TABLETS (50 MG) DAILY Class: E-Prescribe Notes to Pharmacy: Patient must have follow-up appointment with Dr. Zayas before further refillscan be given. sildenafil (REVATIO) 20 MG tablet 90 tablet 11 11/20/2019 [facility][id number] - [place], [facility] [address] [facility] N[address]E[facility] Sig: Take 1 tablet (20 mg) by mouth three times daily for pulmonary hypertension. Never use with nitroglycerin, terazosin or doxazosin. Class: E-Prescribe spironolactone (ALDACTONE) 25 MG tablet 90 tablet 3 02/17/2020 [facility][id number] - [place], [facility] [address] [facility] N[address]E. Sig: Take 1 tablet (25 mg) by mouth daily Class: E-Prescribe Route: Oral Taking 20 mg lasix daily FH: Lumarina is adopted. No FH known. PE: His height is 1.633 m (5' 4.3) and weight is 64 kg (141 lb). His blood pressure is 100/68 and his pulse is 65. His oxygen saturation is 95%. His body mass index is 23.98 kg/m??. [...] no rubs, gallops or diastolic murmurs. Abdominal examinationis benign with no hepatosplenomegaly or masses. Radial and femoral pulses are normal and LE extremities are warm and well perfused with no edema and good capillary refill. He is oriented and responsive. He moves all extremities equally with normal tone. MRI 05/2019: Double outlet right ventricle, transposition [...] 36-167 rare isolated ectopy. Transient ventricular trigeminy. Holter 2019 Average HR 68 (range 32-144) rare PAC's and PVC's. 12 lead ECG today: sinus rhythm at 46 bpm. Mild IVCD. RVH with lateral T wave inversion. No significant changes from prior ECG's Cath Data 01/2016: Fontan pressures 14 mean, PAP 14 mean LV EDP 10 CI 3.1 L/min/m2. Results for orders placed or performed in visit on 09/09/20 IgG Status: None Result Value Ref Range IGG 1,437 610 - 1,616 mg/dL TSH with free T4 reflex Status: None Result Value Ref Range TSH 2.83 0.40 - 4.00 mU/L CBC with platelets differential Status: None Result Value Ref Range WBC 5.3 4.0 - 11.0 10e9/L RBC Count 5.64 4.4 - 5.9 10e12/L Hemoglobin 16.3 13.3 - 17.7 g/dL Hematocrit 49.8 40.0 - 53.0 % MCV 88 78 - 100 fl MCH 28.9 26.5 - 33.0 pg MCHC 32.7 31.5 - 36.5 g/dL RDW 12.5 10.0 - 15.0 % Platelet Count 175 150 - 450 10e9/L Diff Method Automated Method % Neutrophils 66.6 % % Lymphocytes 23.4 % % Monocytes 8.6 % % Eosinophils 0.8 % % Basophils 0.6 % % Immature Granulocytes 0.0 % Nucleated RBCs 0 0 /100 Absolute Neutrophil 3.5 1.6 - 8.3 10e9/L Absolute Lymphocytes 1.2 0.8 - 5.3 10e9/L Absolute Monocytes 0.5 0.0 - 1.3 10e9/L Absolute Eosinophils 0.0 0.0 - 0.7 10e9/L Absolute Basophils 0.0 0.0 - 0.2 10e9/L Abs Immature Granulocytes 0.0 0 - 0.4 10e9/L Absolute Nucleated RBC 0.0 Comprehensive metabolic panel Status: None Result Value Ref Range Sodium 140 133 - 144 mmol/L Potassium 3.8 3.4 - 5.3 mmol/L Chloride 108 94 - 109 mmol/L Carbon Dioxide 28 20 - 32 mmol/L Anion Gap 4 3 - 14 mmol/L Glucose 96 70 - 99 mg/dL Urea Nitrogen 19 7 - 30 mg/dL Creatinine 0.96 0.66 - 1.25 mg/dL GFR Estimate >90 >60 mL/min/[1.73_m2] GFR Estimate If Black >90 >60 mL/min/[1.73_m2] Calcium 9.6 8.5 - 10.1 mg/dL Bilirubin Total 1.1 0.2 - 1.3 mg/dL Albumin 4.6 3.4 - 5.0 g/dL Protein Total 8.2 6.8 - 8.8 g/dL Alkaline Phosphatase 72 40 - 150 U/L ALT 25 0 - 70 U/L AST 15 0 - 45 U/L Results for orders placed or performed in visit on 09/09/20 EKG 12-lead, tracing only (Same Day) Status: None Result Value Ref Range Interpretation ECG Click View Image link to view waveform and result Results for orders placed or performed in visit on 09/09/20 Echo Congenital Adult Status: None [facility] [id number]^JAVIER^CORDELL^RYAN Study ID: [id number] [facility]'[address] [place] [address] Pediatric Echocardiogram Name: JUDE BILLS Study Date: 09/09/2020 09:02 AM Patient Location: [facility] Age: 20 yrs : 2000 BP: 117/72 mmHg Gender: Male Patient Class: Outpatient Height: 162 cm Ordering Provider: CORDELL JUAREZ Weight: 64 kg Referring Provider: CORDELL JUAREZ BSA: 1.7 m2 Performed By: Kiel Lucero RDCS [...] effusion. No significant change from last echocardiogram. Technical information: A complete two dimensional, MMODE, [...] right ventricular enlargement. Normal right ventricular systolic function. There is a large anterior malalignment ventricular [...] max dhruv: 25.2 cm/sec MV dec time: 0.35 sec MV E/A: 2.6 Ao V2 max: 99.0 cm/sec LV dP/dt: 1010 mmHg/s Ao max P.9 mmHg TV E max dhruv: 73.2 cm/sec LV Tei Index: 0.49 TV A max dhruv: 26.2 cm/sec asc Ao max dhruv: 77.1 cm/sec desc Ao max dhruv: 98.5 cm/sec asc Ao max P.4 mmHg desc Ao max P.9 mmHg MV Close to Open: 0.48 sec Report approved by: Janee Luna 09/09/2020 09:38 AM Impression and Plan: Jude is a 20 [...] for risk of thomboembolism is been held. He had colitis with aspirin. Will hold off on prophylactic anticoagulation at this time. He has been fatigued with lower heart rates. Feeling better off metoprolol Recommendations: Stop metoprolol 48 hour Holter or zio patch to be placed about 2 weeks off of meds. Follow up 6 months with ECG Sincerely Cordell Juarez M.D. Data Security Consultant of Pediatrics Pediatric and Adult Congenital Cardiology [facility] Pediatric Cardiology Office [phone] Adult Congenital Cardiology Triage and Scheduling [phone] Answers for HPI/ROS submitted by the patient on 09/06/2020 General Symptoms: No Skin Symptoms: No HENT Symptoms: No EYE SYMPTOMS: No HEART SYMPTOMS: Yes LUNG SYMPTOMS: No INTESTINAL SYMPTOMS: No URINARY SYMPTOMS: No REPRODUCTIVE SYMPTOMS: No SKELETAL SYMPTOMS: No BLOOD SYMPTOMS: No NERVOUS SYSTEM SYMPTOMS: No MENTAL HEALTH SYMPTOMS: Yes Chest pain or pressure: Yes Fast or irregular heartbeat: Yes Pain in legs with walking: No Trouble breathing while lying down: No Fingers or toes appear blue: No High blood pressure: No Low blood pressure: No Fainting: No Murmurs: Yes Pacemaker: No Varicose veins: No Edema or swelling: No Wake up at night with shortness of breath: No Light-headedness: No Exercise intolerance: Yes Nervous or Anxious: Yes Depression: Yes Trouble sleeping: Yes Trouble thinking or concentrating: Yes Mood changes: Yes Panic attacks: No documented in this encounter Nursing Notes Jos Cabezas - 09/09/2020 10:00 AM CDT Chief Complaint Patient presents with ??? 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 Vitals were taken and medications where reconciled. EKG was performed JEFFREY Juarez 9:42 AM Arthur Limon RN - 09/09/2020 10:00 AM CDT Cardiac Monitors: Patient was instructed regarding the indication, function, care and prompt return of a holter monitor. The monitor was placed on the patient with instructions regarding care of the skin electrodes and monitor, as well as documentation in the patient diary. Patient demonstrated understanding of this information and agreed to call with further questions or concerns. Labs: Patient was instructed to return for the next laboratory testing today . Patient demonstrated understanding of this information and agreed to call with further questions or concerns. Med Reconcile: Reviewed and verified all current medications with the patient. The updated medication list was printed and given to the patient. Medication Change: Stop Metoprolol. Patient was educated regarding prescribed medication change, including discussion of the indication, administration, side effects, and when to report to MD preforms laminator. Patient demonstrated understanding of this information and agreed to call with further questions or concerns. Patient stated he understood all health information given and agreed to call with further questions or concerns. Arthur Limon RN translator and interpreter Test Driller [phone] documented in this encounter Plan of Treatment Upcoming Encounters Date Type Specialty Care Team Description 07/27/2022 Ancillary Procedure Cardiology Cordell Juarez MD [address] [facility] [place] [address] (Wo rk) 07/27/2022 Office Visit Cardiology JavierCordell blum MD [facility] [address] [address] (Wo rk) Scheduled Referrals Name Type Priority Associated Diagnoses Order S chedule Adult Congenital and CV Referral Routine Double-outlet rig ht Expected: 03/12/2021 Genetics Clinic ventricle with (Approxima te), ventricular septal Expires: 09/09/2021 defect documented as of this encounter Procedures Procedure Name Priority Date/Time Associated Diagnosis Comme nts EKG 12-LEAD, Routine 09/09/2020 9:37 AM Double-outlet right Re sults for this TRACING ONLY CDT ventricle with procedure are in ventricular septal the resul ts defect section. documented in this encounter Results IgG (09/09/2020 11:08 AM CDT) athologist Signature IGG 1,437 610 - 1,616 09/12/2020 [facility] mg/dL 9:24 AM CDT [facility] Specimen Anatomical Collection Method Collection Time Receive d Time (Source) Location / / Volume Laterality Blood specimen 09/09/2020 11:08 1 (specimen) AM CDT 11:11 AM CDT Cordell Juarez MD LAB - BLOOD ORDERABLES Performing Organization Address City/State/ZIP Code Phon e Number [facility] [address] [place] [address] [facility] TSH with free T4 reflex (09/09/2020 11:08 AM CDT) athologist Signature TSH 2.83 0.40 - 4.00 09/09/2020 [facility] mU/L 11:46 AM CDT [facility] Specimen Anatomical Collection Method Collection Time Receive d Time (Source) Location / / Volume Laterality Blood specimen 09/09/2020 11:08 1 (specimen) AM CDT 11:11 AM CDT Cordell Juarez MD LAB - BLOOD ORDERABLES Performing Organization Address City/State/ZIP Code Phon e Number [address] [address] [facility] CBC with platelets differential (09/09/2020 11:[address] [facility]) [facility] Method Time Signature WBC 5.3 4.0 - 09/09/2020 [facility] 11.0 11:15 AM [place] 10e9/L [facility] RBC Count 5.64 4.4 - 5.9 09/09/2020 [facility] 10e12/L 11:15 AM [facility] Hemoglobin 16.3 13.3 - 09/09/2020 [facility] 17.7 g/dL 11:15 AM [facility] Hematocrit 49.8 40.0 - 09/09/2020 [facility] 53.0 % 11:15 AM [facility] MCV 88 78 - 100 09/09/2020 [facility] 11:15 AM [facility] MCH 28.9 26.5 - 09/09/2020 [facility] 33.0 pg 11:15 AM [facility] MCHC 32.7 31.5 - 09/09/2020 [facility] 36.5 g/dL 11:15 AM [facility] RDW 12.5 10.0 - 09/09/2020 [facility] 15.0 % 11:15 AM [facility] Platelet Count 175 150 - 450 09/09/2020 [facility] 10e9/L 11:15 AM [facility] Diff Method Automated 09/09/2020 [facility] 11:15 AM [facility] % Neutrophils 66.6 % 09/09/2020 [facility] 11:15 [facility] % Lymphocytes 23.4 % 09/09/2020 [facility] 11:15 [facility] % Monocytes 8.6 % 09/09/2020 [facility] 11:15 [facility] % Eosinophils 0.8 % 09/09/2020 [facility] 11:15 [facility] % Basophils 0.6 % 09/09/2020 [facility] 11:15 [facility] % Immature 0.0 % 09/09/2020 [facility] Granulocytes 11:15 AM [facility] Nucleated RBCs 0 0 /100 09/09/2020 [facility] 11:15 AM [facility] Absolute 3.5 1.6 - 8.3 09/09/2020 [facility] Neutrophil 10e9/L 11:15 AM [facility] Absolute 1.2 0.8 - 5.3 09/09/2020 [facility] Lymphocytes 10e9/L 11:15 AM [facility] Absolute 0.5 0.0 - 1.3 09/09/2020 [facility] Monocytes 10e9/L 11:15 AM [facility] Absolute 0.0 0.0 - 0.7 09/09/2020 [facility] Eosinophils 10e9/L 11:15 AM [facility] Absolute 0.0 0.0 - 0.2 09/09/2020 [facility] Basophils 10e9/L 11:15 AM [facility] Abs Immature 0.0 0 - 0.4 09/09/2020 [facility] Granulocytes 10e9/L 11:15 AM [facility] Absolute 0.0 09/09/2020 [facility] Nucleated RBC 11:15 AM [facility] Specimen Anatomical Collection Method Collection Time Receive d Time (Source) Location / / Volume Laterality Blood specimen 09/09/2020 11:08 (specimen) AM CDT 11:11 AM CDT Cordell Juarez MD LAB - BLOOD ORDERABLES Performing Organization Address City/State/ZIP Code Phon e Number [address] [address] [facility] Comprehensive metabolic panel (09/09/2020 11:08 AM CDT) P athologist Signature Sodium 140 133 - 144 09/09/2020 [facility] mmol/L 11:46 AM [facility] Potassium 3.8 3.4 - 5.3 09/09/2020 [facility] mmol/L 11:46 AM [facility] Chloride 108 94 - 109 09/09/2020 [facility] mmol/L 11:46 AM [facility] Carbon Dioxide 28 20 - 32 09/09/2020 [facility] mmol/L 11:46 AM [facility] Anion Gap 4 3 - 14 09/09/2020 [facility] mmol/L 11:46 AM [facility] Glucose 96 70 - 99 09/09/2020 [facility] mg/dL 11:46 AM [facility] Urea Nitrogen 19 7 - 30 09/09/2020 [facility] mg/dL 11:46 AM [facility] Creatinine 0.96 0.66 - 09/09/2020 [facility] 1.25 mg/dL 11:46 AM [facility] GFR Estimate >90 >60 09/09/2020 [facility] mL/min/{1. 11:46 AM [facility] 73_m2} [facility] Comment: Non GFR Calc Starting 06/03/2018, serum creatinine ba sed estimated GFR (eGFR) will be calculated using the Chronic Kidney Dise [facility] Epidemiology Collaboration (CKD-EPI) equation. GFR Estimate If >90 >60 mL/min/{1.73_m2} 09/09/2020 11 :46 AM [place] [facility] Black [facility] Comment: GFR Calc Starting 06/03/2018, serum creatinine ba sed estimated GFR (eGFR) will be calculated using the Chronic Kidney Dise [facility] Epidemiology Collaboration (CKD-EPI) equation. Calcium 9.6 8.5 - 10.1 mg/dL 09/09/2020 11:46 AM [facility] Bilirubin Total 1.1 0.2 - 1.3 mg/dL 09/09/2020 11:46 A M [facility] Albumin 4.6 3.4 - 5.0 g/dL 09/09/2020 11:46 AM [facility] Protein Total 8.2 6.8 - 8.8 g/dL 09/09/2020 11:46 AM U [facility] Alkaline Phosphatase 72 40 - 150 U/L 09/09/2020 11:46 AM [facility] ALT 25 0 - 70 U/L 09/09/2020 11:46 AM [facility] Y OF CDT [facility] AST 15 0 - 45 U/L 09/09/2020 11:46 AM [facility] Y OF CDT [facility] Specimen Anatomical Collection Method Collection Time Receive d Time (Source) Location / / Volume Laterality Blood specimen 09/09/2020 11:08 1 (specimen) AM CDT 11:11 AM CDT Cordell Juarez MD LAB - BLOOD ORDERABLES Performing Organization Address City/State/ZIP Code Phon e Number [address] [address] [facility] HOLTER MONITOR 48 HOUR APPLICATION SCAN ANALYSIS AND PROVIDER INTERPRETATION (09/09/2020 10:58 AM CDT) Anatomical Region Laterality Modality Other Specimen (Source) Anatomical Collection Method Collection Time Re ceived Time Location / / Volume Laterality 09/09/2020 10:56 AM CDT Cordell Juarez MD CV CARDIAC SERVICES ORDERABL ES EKG 12-lead, tracing only (Same Day) (09/09/2020 9:37 AM CDT) [facility] gist Method Time Signature Interpretation ECG Click View RADIOLOGY Image link RESULTS to view waveform and result Specimen (Source) Anatomical Collection Method Collection Time Re ceived Time Location / / Volume Laterality 09/09/2020 9:37 AM CDT Cordell Juarez MD ECG ORDERABLES Performing Organization Address City/[facility]/ZIP Code Phon e Number RADIOLOGY RESULTS documented in this encounter Visit Diagnoses Diagnosis 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 - Primary Transposition of great vessels, double o utlet right ventricle Palpitations documented in this encounter Additional Health Concerns Assessment Noted Time PHQ-9 Depression Total Score: 10 04/01/2019 9:14 AM CD T documented as of this encounter Care Teams Marketing Editor Relationship Specialty Start Date End Date Magnus Zayas, PCP - General Student in organized 02/23/20 09/17/[address] education/training program [address] [place] [address] Magnus Zayas, Assigned PCP 02/28/2004/[address] [address] documented as of this encounter
--- OUTSIDE RECORDS SUMMARY | 2022-04-10 09:53 | XMS_ITS | Encounter Summary ---
:2000 Author Organization [place] Address [address] [facility] [place] [address] Care Team Providers Name Role Phone Magnus Zayas DO Primary Care Provider [phone] Magnus Zayas DO Unavailable [phone] Reason for Referral CV Testing (Routine) - Closed Specialty Diagnoses / Procedures Referred By Contact Refer red To Contact Diagnoses S/P Fontan procedure Bradycardia Cordell Juarez MD Procedures Holter Monitor 48 hour Adult Pediatric C AMB BP MONITORING W/SW >=24 HR, RECORD/SCAN/INTRP/RPT HC HOLTER RECORDING 24 HRS HC HOLTER SCAN 24 HRS [address] [id number] [place], [place] [address] Referral ID Status Reason Start Date Expiration Date Visits Requ ested Visits Authorized [id number] Closed 03/02/2020 03/02/2021 1 1 Reason for Visit Reason Comments Allied Health Visit Nurse only Holter Monitor CV Testing (Routine) - Closed Specialty Diagnoses / Procedures Referred By Contact Refer red To Contact Diagnoses S/P Fontan procedure Bradycardia Cordell Juarez MD Procedures Holter Monitor 48 hour Adult Pediatric C AMB BP MONITORING W/SW >=24 HR, RECORD/SCAN/INTRP/RPT HC HOLTER RECORDING 24 HRS HC HOLTER SCAN [address] HRS [address] [address] Referral ID Status Reason Start Date Expiration Date Visits Requ ested Visits Authorized [id number] Closed 02/17/2020 02/16/2021 1 1 Encounter Details Date Type Department Care Team Description 03/02/2020 [facility] [place] Nurse, Ox-Peds Allied [facility] Visit Health/Nurse Explorer Pediatric Cordell Juarez MD [address] [address] (Nurse only Holter Visit Specialty Clinic Mon... Explorer Clinic [facility] [address] [place] [address] Social History Tobacco Use Types Packs/Day [...] / COVID-19? documented as of this encounter Patient Instructions Patient InstructionsQiana Christensen LPN - 03/02/2020 10:30 AM CDT DATE: 03/02/20 PATIENT NAME / MRN: Jude Bills [id number] MONITOR NUMBER: [id number] PEDIATRIC HOLTER MONITOR PRODUCT RESPONSIBILITY AND FINANCIAL AGREEMENT To the Parent/Guardian of Jude Cho Negar: Your provider, Dr. Juarez, has ordered a Holter Monitor for you to wear for 48 hours. A staff member of the Pediatric Cardiology Department will instruct you on the proper use and care of the Holter monitor, and explain its functions. For questions or concerns regarding the device, please contact the [facility]'s EKG Lab at or [phone] Saturday through Saturday between the hours of 7:00AM and 4:30PM. Please note that this monitor is very sensitive to humidity/moisture and MUST NOT GET WET. Please use caution when in the bathroom to avoid accidentally dropping the device in water. This monitor must be returned in good working order to the Pediatric Explorer Clinic or the [facility]'s EKG Lab / Pediatric Cardiovascular Imaging Department either in person or by mail NO LATER THAN 03/07/20. If this monitor has not been mailed or returned in person by this date, you will be responsible for the cost of replacing the monitor. The current cost of replacement is $1,980.00. ACCEPTANCE OF RESPONSIBILITY I understand the above instructions and agree to be financially responsible for the cost of this monitor if it is lost or damaged beyond normal wear and tear or otherwise not returned in good working order by the date specified above. 03/02/20, 10:59 AM SIGNATURE PRINTED NAME RELATIONSHIP TO PATIENT SIGNATURE WITNESSED BY: Clinic Staff PRINTED NAME, CREDENTIAL(S) and INITIALS documented in this encounter Plan of Treatment Upcoming Encounters Date Type Specialty Care Team Description 07/27/2022 Ancillary Procedure Cardiology Cordell Juarez MD [address] [place], [place] [phone] (Wo rk) 07/27/2022 Office Visit Cardiology Cordell Juarez MD [address] [place], [place] [address] (Wo rk) documented as of this encounter Results HOLTER MONITOR 48 HOUR [...] documented as of this encounter Care Teams Photographic Specialist Relationship Specialty Start Date End Date Magnus Zayas, PCP - General Student in organized 02/23/20 09/17/[address] education/training program [address] [place] [address] Magnus Zayas, Assigned PCP 02/28/2004/[address] [place] [address] documented as of this encounter
--- OUTSIDE RECORDS SUMMARY | 2022-04-10 09:53 | XMS_ITS | Encounter Summary ---
:2000 Author Organization [place] Address [address] [place] [address] Care Team Providers Name Role Phone Magnus Zayas DO Primary Care Provider Magnus Zayas DO Unavailable [phone] Celeste Scales MD Unavailable Magnus Zayas DO Unavailable [phone] Magda Winchester MD Primary Care Provider Reason for Visit Reason Onset Date Comments Medication Refill sertraline (ZOLOFT) 25 MG Appointment 05/25/2020 Encounter Details Date Type Department Care Team Description 05/22/2020 Telephone [facility] Primary Care Vinay Scales MD Medication Refill Clinic [address] [place] [address] (sertraline (ZOLOFT) 25 9 [facility] 4TH [place] MG ); Appointment 4th [place] [address] Social History Tobacco Use Types Packs/Day Years Used Date Smoking Tobacco: Never Smokeless Tobacco: Never Comments: none at home Alcohol Use Standard Drinks/Week Comments No 0 (1 standard drink = 0.6 oz pure alcoho l) Sex Assigned at Date Recorded Male 03/09/2019 1:21 PM CDT documented as of this encounter Miscellaneous Notes Telephone Encounter - Betsy Shearer - 05/25/2020 10:56 AM CST Call to help patient make a follow up visit with Dr. Zayas, who has openings on 06/28/20 return slot or virtual 07/12/20. ??At last visit with PCP in Feb 2020, patient was asked to RTC in 4-6 weeks, but no appt has been made yet. CS TECHNICAL OFFICER Telephone Encounter - Gayathri Wells RN - 05/24/2020 5:27 PM CST sertraline (ZOLOFT) 25 MG Last Written Prescription Date: 04/06/20 Last Fill Quantity: 60 , # refills: 1 Last Office Visit : 04/06/20 Future Office visit: NONE Routing refill request to provider for review/approval because: 30 DAY RF PENDING OVER DUE PHQ9 (REPEAT) CS TECHNICAL OFFICER documented in this encounter Plan of Treatment Upcoming Encounters Date Type Specialty Care Team Description 07/27/2022 Ancillary Procedure Cardiology Cordell Juarez MD [address] [place] [address] (Wo rk) 07/27/2022 Office Visit Cardiology Cordell Juarez MD [address] [place], [place] [address] (Wo rk) documented as of this encounter Visit Diagnoses Diagnosis Moderate episode of recurrent major depr essive disorder (H) documented in this encounter Additional Health Concerns Assessment Noted Time PHQ-9 Depression Total Score: 10 04/01/2019 9:14 AM CD T documented as of this encounter Care Teams Atomic Physics Teacher Relationship Specialty Start Date End Date Magnus Zayas, PCP - General Student in [facility] 02/23/20 09/17/21 [facility] care [address] [place] [address] education/training program [address] [place], [place] [address] Magda Winchester PCP - General Family Medicine 09/18/21 MD [place] Magnus Zayas, Assigned PCP 02/28/2004/[address] [place] [address] Celeste Scales MD Assigned PCP 11/10/20 11/19/[address] [place] [address] Magnus Zayas, Assigned PCP 11/20/[address] [address] documented as of this encounter
--- OUTSIDE RECORDS SUMMARY | 2022-04-10 09:53 | XMS_ITS | Encounter Summary ---
:2000 Author Organization [place] Address [address] [place] [address]. [place] [address] Care Team Providers Name Role Phone Clinic, [facility] Primary Care Provider [phone] Encounter Details Date Type Department Care Team Description 12/31/[address] [facility] Lorena Reed SVT ([facility] Explorer traffic administrator mariluz rodriguez) (H) Specialty Clinic [address] [place] [address] [address] [place] [address] Social History Tobacco Use Types [...] Ancillary Procedure Cardiology Larry, Cordell Barajas MD [address] [place], [place] [address] [place] [address] (Wo rk) 07/27/2022 Office Visit Cardiology Larry, Cordell skelton MD 2450 [facility] [place] [address] (Wo rk) documented as of this encounter Visit Diagnoses Diagnosis SVT (supraventricular tachycardia) (H) Other specified cardiac dysrhythmias documented in this encounter Additional Health Concerns Assessment Noted Time PHQ-9 Depression Total Score: 10 04/01/2019 9:14 AM CD T documented as of this encounter Care Teams Fulfillment Associate Relationship Specialty Start Date End Date Clinic, [facility] PCP - General 06/25/19 02/22/20 1400 [place] [address] documented as of this encounter
--- OUTSIDE RECORDS SUMMARY | 2022-04-10 09:53 | XMS_ITS | Encounter Summary ---
:2000 Author Organization [place] Address [facility] [place] [address] Care Team Providers Name Role Phone Magnus Zayas DO Primary Care Provider [phone] Magnus Zayas DO Unavailable [phone] Encounter Details Date Type Department Care Team Description 07/06/2020 Travel Social History Tobacco Use Types Packs/Day [...] been in contact with No / Unsure 07/06/2020 1:14 PM ASTR[employer] SPECIALIST someone who was confirmed or suspected to have Coronavirus / COVID-19? documented as of this encounter Plan of Treatment Upcoming Encounters Date Type Specialty Care Team Description 07/27/2022 Ancillary Procedure Cardiology Cordell Juarez MD [address] [place] [address] [address] [place] [address] (Wo rk) 07/27/2022 Office Visit Cardiology Cordell Juarez MD [address] [place] [address] [address] [place] [address] (Wo rk) documented as of this encounter Visit Diagnoses Not on filedocumented in this encounter Additional Health Concerns Assessment Noted Time PHQ-9 Depression Total Score: 10 04/01/2019 9:14 AM CD T documented as of this encounter Care Teams Hot Baller Relationship Specialty Start Date End Date Magnus Zayas, PCP - General Student in organized 02/23/20 09/17/[address] education/training program [address] [place], [place] [address] Magnus Zayas, Assigned PCP 02/28/2004/[address] [place] [address] documented as of this encounter
--- OUTSIDE RECORDS SUMMARY | 2022-04-10 09:54 | XMS_ITS | Encounter Summary ---
:2000 Author Organization [place] Address [address] [place] [address] Care Team Providers Name Role Phone [facility] Primary Care Provider [phone] Reason for Visit Reason Comments Medication Refill Encounter Details Date Type Department Care Team Description 10/16/2019 Refill [facility] Cordell Juarez MD Medication Refill Explorer Pediatric [address] [facility] [address] Specialty Clinic [place], [place] [id number] [place] [address] [place] [address] Social History Tobacco Use Types [...] Ancillary Procedure Cardiology Cordell Juarez MD [address] [place] [address] (Wo rk) 07/27/2022 Office Visit Cardiology Larry, Cordell skelton MD [address] [place] [address] (Wo rk) documented as of this encounter 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
--- OUTSIDE RECORDS SUMMARY | 2022-04-10 09:54 | XMS_ITS | Encounter Summary ---
:2000 Author Organization [place] [address] [facility] [place] [address] Care Team Providers Name Role Phone [facility] Primary Care Provider [phone] Encounter Details Date Type Department Care Team Description 06/29/2019 Telephone [facility] Pediatric Larry Cordell MD Specialty Clinic [address] [address] [address] [facility] [place] [address] [facility] [place] [address] [phone] Social History Tobacco Use Types Packs/Day Years Used Date Smoking Tobacco: Never Smokeless Tobacco: Never Comments: none at home Alcohol Use Standard Drinks/Week Comments No 0 (1 standard drink = 0.6 oz pure alcoho l) Sex Assigned at Date Recorded Male 03/09/2019 1:21 PM CDT documented as of this encounter Miscellaneous Notes Telephone Encounter - Florinda Robb CMA - 07/01/2019 2:09 PM CST 2nd attempt to reach out to patient to move appointments. No answer, left VM. GER OF LEARNING Telephone Encounter - Florinda Robb CMA - 06/29/2019 11:59 AM CST Left VM for patient to switch appointment to 07/23 to better coordinate care in Adult congenital clinic with Dr. Juarez. GER OF LEARNING documented in this encounter Plan of Treatment Upcoming Encounters Date Type Specialty Care Team Description 07/27/2022 Ancillary Procedure Cardiology Cordell Juarez MD [address] [place] [address] (Wo rk) 07/27/2022 Office Visit Cardiology Cordell Juarez MD [address] [place] [address] (Wo rk) documented as of this encounter Visit Diagnoses Not on filedocumented in this encounter Additional Health Concerns Assessment Noted Time PHQ-9 Depression Total Score: 10 04/01/2019 9:14 AM CD T documented as of this encounter Care Teams Chemical Production Machine Operator Relationship Specialty Start Date End Date [facility], [facility] PCP - General 06/25/19 02/22/[address] [place] [address] documented as of this encounter
--- OUTSIDE RECORDS SUMMARY | 2022-04-10 09:54 | XMS_ITS | Encounter Summary ---
:2000 Author Organization [place] Address [facility]0 [facility] [place] [address] Care Team Providers Name Role Phone Clinic, [facility] Primary Care Provider [phone] Reason for Visit Reason Onset Date Comments Refill Request 11/04/2019 Encounter Details Date Type Department Care Team Description 11/04/2019 Refill [facility] Explorer Cordell Juarez MD Refill Request Pediatric Specialty Clinic [address] [place] [address] [address] [address] [facility] [place] [phone] Social History Tobacco Use Types Packs/Day [...] 07/27/2022 Ancillary Procedure Cardiology Cordell Juarez MD [address] [place] [phone] (Wo rk) 07/27/2022 Office Visit Cardiology Larry, Cordell skelton MD [address] [facility] [place] [address] (Wo rk) documented as of this encounter Visit Diagnoses Diagnosis Chest pain, unspecified type 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
--- OUTSIDE RECORDS SUMMARY | 2022-04-10 09:54 | XMS_ITS | Encounter Summary ---
:2000 Author Organization [place] Address [facility] [place] [address] Care Team Providers Name Role Phone [facility], [facility] Primary Care Provider [phone] Reason for Visit Reason Onset Date Comments Refill Request 11/05/2019 Refill Request 11/20/2019 Encounter Details Date Type Department Care Team Description 11/05/2019 Refill [facility] Clifford Malhotra RN Refill Request; Refill Pediatric Specialty [phone] Request [facility] [address] [facility] [address] [place] [address] Social History Tobacco Use Types Packs/Day Years Used Date Smoking Tobacco: Never Smokeless Tobacco: Never Comments: none at home Alcohol Use Standard Drinks/Week Comments No 0 (1 standard drink = 0.6 oz pure alcoho l) Sex Assigned at Date Recorded Male 03/09/2019 1:21 PM CDT documented as of this encounter Miscellaneous Notes Telephone Encounter - Clifford Malhotra RN - 11/05/2019 10:40 AM CDT Call received from pharmacy stating Sildenafil may only be filled by [facility] mail order pharmacy. Placed call to mom and she will check on local pharmacies that may be able to fill Rx. Mom will call back with instructions. 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
--- OUTSIDE RECORDS SUMMARY | 2022-04-10 09:54 | XMS_ITS | Encounter Summary ---
:2000 Author Organization [place] Address [address] [place] [address] Care Team Providers Name Role Phone [facility] Primary Care Provider [phone] Encounter Details Date Type Department Care Team Description 08/19/2019 Travel Social History Tobacco Use Types Packs/Day [...] 07/27/2022 Ancillary Procedure Cardiology Cordell Juarez MD [address] [place] [address] (Wo rk) 07/27/2022 Office Visit Cardiology Cordell Juarez MD [address] [place], [place] [address] [place] [address] (Wo rk) documented as of this encounter Visit Diagnoses Not on filedocumented in this encounter Additional Health Concerns Assessment Noted Time PHQ-9 Depression Total Score: 10 04/01/2019 9:14 AM CD T documented as of this encounter Care Teams Compounding Scaler Relationship Specialty Start Date End Date Clinic, [facility] PCP - General 06/25/19 02/22/20 1400 [place] [address] documented as of this encounter
--- OUTSIDE RECORDS SUMMARY | 2022-04-10 09:54 | XMS_ITS | Encounter Summary ---
:2000 Author Organization [place] Address [address] [place] [address]. [place] [address] Care Team Providers Name Role Phone [facility] Primary Care Provider [phone] Encounter Details Date Type Department Care Team Description 06/25/2019 Travel Social History Tobacco Use Types Packs/Day [...] 07/27/2022 Ancillary Procedure Cardiology Cordell Juarez MD [address] [place] [address] (Wo rk) 07/27/2022 Office Visit Cardiology Cordell Juarez MD [address] [place], [place] [address] [place] [address] (Wo rk) documented as of this encounter Visit Diagnoses Not on filedocumented in this encounter Additional Health Concerns Assessment Noted Time PHQ-9 Depression Total Score: 10 04/01/2019 9:14 AM CD T documented as of this encounter Care Teams Patient Office Rep Relationship Specialty Start Date End Date Clinic, [facility] PCP - General 06/25/19 02/22/20 1400 [place] [address] documented as of this encounter
--- OUTSIDE RECORDS SUMMARY | 2022-04-10 09:54 | XMS_ITS | Encounter Summary ---
:2000 Author Organization [facility] Address [address] [place] [address]. [place] [address] Care Team Providers Name Role Phone [facility] Primary [facility] Provider [phone] Reason for Visit Reason Comments Fever Auth/Cert Specialty Diagnoses / Procedures Referred By Contact Refer red To Contact Pediatrics Diagnoses Viral illness Fever Ur Unit [address] [place] [address] A VE LARY KAMARA [phone] Phone: Referral ID Status Reason Start Date Expiration Date Visits Requ ested Visits Authorized [id number] 1 1 Encounter Details Date Type Department Care Team Description 12/18/2019 - [facility] Kiersten Cortes MD [address] [place] [address] [address] [place], [place] [id number] HSV (herpes simplex virus) infection (Pr imary Dx); 12/29/2019 Encounter [facility] Pediatric Christel Gibson MD [address] [place] [phone] Viral illness; Medical Surgical Hyperbiliru binemia; Unit 6 Thrombocytopenia (H); [address] [place] [address] Exposure to S ARS-associated coronavirus; AVE Dental infection LARY KAMARA [id number] Social History Tobacco Use Types Packs/Day Years [...] Sign Reading Time Taken Comments Blood Pressure 112/67 12/29/2019 3:05 AM CDT Pulse 68 12/28/2019 7:45 PM CDT Temperature 36.7 ??C (98.1 ??F) 12/29/2019 3:05 AM CDT Respiratory Rate 16 12/29/2019 3:05 AM CDT Oxygen Saturation 96% 12/29/2019 3:05 AM CDT Inhaled Oxygen Concentration - - Weight 64.5 kg (142 lb 3.2 oz) 12/28/2019 12:11 AM CDT Height 162.6 cm (5' 4) 12/19/2019 1:28 AM CDT Body Mass Index 24.41 12/19/2019 1:28 AM CDT documented in this encounter Discharge Summaries Daysi Fregoso MD - 12/29/2019 4:44 AM CDT [facility], [facility] Discharge Summary - Medicine & Pediatrics Date of Admission: 12/18/2019 Date of Discharge: 12/29/2019 Discharging Provider: Dr. 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 Follow-up with your primary hotel reservation agent, Dr. Juarez, on February 16 as planned. 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 The following problems were addressed during his hospitalization: Jude was admitted after fevers/chills, malaise, sore throat lasting for 2 days prior to admission. Workup in the hospital revealed primary HSV on throat swab with negative serology. Dental examination revealed pericoronitis of the molars. He was started on IV acyclovir for 7 days and transitioned to valacyclovir once able to take po to finish a 10 day course of antivirals. His pericoronitis was treated with IV unasyn initially and was able to transition to PO ampicillin as his throat pain diminishedand he was able to tolerate PO. Infectious workup was otherwise negative. Pain was controlled with Tylenol, Ibuprofen, Toradol, and Oxycodone throughout admission and he was able to wean off of his pain management plan well over the course of his antibiotic and antiviral treatment. His chest x-ray imaging was reassuring against infectious focus and cardiac labs including BNP were reassuring throughout admission. He continued on his CV medications and tolerated well. He initially had a mild thrombocytopenia to 109 on early admission but his PLT count rebounded appropriately signifying bone marrow recovery from infection associated suppression. He received MIVF to offset renotoxic effects of IV acyclovir and was transitioned to an IV/PO titrate as able, eventually with full transition to PO which he tolerated well. His mother who was present at time during his admission brought up a number of psychosocial concernsthroughout admission. He has a history of MDD and there were concerns of medication nonadherence in the outpatient setting. Mom has brought up concerns about Jude's ability to manage his own healthcareincluding medication management. Mom has considered pursuing guardianship in the past.??He was admitted to [facility] for a month after his breakup where he met his current girlfriend who is 16 yrs old. At this time he is living with his girlfriend and her father in [place] and expressed his desire franck discharged to their home. Social work was consulted but since he is 19 yrs, he is legally able tomake his own decisions. Jude was discharged in stable condition on 12/29/2019 prior to planned wisdom tooth removal. After surgery he reports he will be picked up by his girlfriend's father and continue to live with them. Consultations This Hospital Stay PEDS INFECTIOUS DISEASES IP CONSULT PEDS DENTISTRY IP CONSULT SOCIAL WORK IP CONSULT DENTISTRY ADULT IP CONSULT MEDICATION HISTORY IP PHARMACY CONSULT PHARMACY/NUTRITION TO START AND MANAGE TPN Code Status Full Code The patient was discussed with Dr. Daysi Blackwell MD Pediatric Cardiology Service [facility] Physician Attestation I, Daysi Fregoso, saw and evaluated this patient prior to discharge. I discussed the patient with the resident/fellow and agree with plan of care as documented in the note. I personally reviewed vital signs, medications, labs and imaging. I personally spent 35 minutes on discharge activities. Daysi Fregoso MD Date of Service (when I saw the patient): 12/29/19 Physical Exam Vital Signs: Temp: 98.1 ??F (36.7 ??C) Temp src: Oral BP: 112/67 Pulse: 68 Heart Rate: 55 Resp: 16 SpO2: 96 % O2 Device: None (Room air) Weight: 142 lbs 3.15 oz GENERAL:??Sleeping??in bed.??Rouses with exam.??No acute distress. Answering questions appropriately. SKIN:??Warm, dry. No rash. HEAD: Normocephalic EYES: Normal conjunctivae. MOUTH/THROAT:??Clear, without lesions.??No exudates. NECK: Supple, no masses. No asymmetry.?? LUNGS: Clear.??No crackles or wheezing HEART: Regular rhythm. Normal S1. Single S2. Grade 2-3 systolic ejeection murmur heard best at left upper sternal border. Pulses palpable and appropriate.??No peripheral edema. ABDOMEN:??Soft, non tender, not distended,??no masses or hepatosplenomegaly.?? NEUROLOGIC: No focal findings. Cranial nerves grossly intact.?? EXTREMITIES:??No deformities. Primary Care Physician [facility] Discharge Orders Reason for your hospital stay Treatment for HSV pharyngitis. Activity Your activity upon discharge: activity as tolerated Follow Up and recommended labs and tests Follow-up with your primary care provider in 3-5 days. Follow-up with your primary hotel reservation agent, Dr. Juarez, on February 16 as planned. Diet Follow this diet upon discharge: Orders Placed This Encounter Snacks/Supplements Adult: Boost Breeze; Between Meals Peds Diet Age 9-18 yrs Significant Results and Procedures Results for orders placed or performed during the hospital encounter of 12/18/19 XR Chest Port 1 View Narrative Exam: XR CHEST PORT 1 VW, 12/18/2019 10:31 PM Indication: cough, fever and dyspnea Comparison: 06/25/2019 Findings: Portable radiograph of the chest. Postsurgical chest. Unchanged stent along the right heart border. Cardiac silhouette is not enlarged. Right-sided aortic arch. No focal airspace opacities. No pneumothorax. No pleural effusion. Visualized upper abdomen is unremarkable. No acute osseous abnormalities. Impression Impression: No focal airspace opacities. I have personally reviewed the examination and initial interpretation and I agree with the findings. SALEEM MICHAUD MD CT Soft Tissue Neck w Contrast Narrative CT SOFT TISSUE NECK W CONTRAST 12/23/2019 12:22 AM History: Abscess of pharynx; concern for periapical abscess or deep space abscess of the neck Comparison: None available Technique: Following intravenous administration of nonionic iodinated contrast medium, thin section helical CT images were obtained from the skull base down to the level of the aortic arch. Axial, coronal and sagittal reformations were performed with 2-3 mm slice thickness reconstruction. Images were reviewed in soft tissue, lung and bone windows. Contrast: 100ml's ISO 370 Findings: Evaluation of the mucosal space demonstrates no evident abnormality in the nasopharynx, oropharynx, hypopharynx or the glottis. Bilateral palatine tonsils are slightly enlarged. The tongue base appears normal. The major salivary glands appear unremarkable. The thyroid gland appears normal. Enlarged left cervical lymph nodes, the most prominent of which is a level 2 node measuring 2.2 x 1.1 cm (series 3, image 54).. The fascial spaces in the neck are intact bilaterally. The major vascular structures in the neck appear unremarkable. Evaluation of the osseous structures demonstrate no worrisome lytic or sclerotic lesion. No overt spinal canal or neuroforaminal stenosis. The visualized paranasal sinuses are clear. The mastoid air cells are clear. The visualized lung apices are clear. Mild subcutaneous soft tissue edema within the posterior neck. Impression Impression: 1. No focal fluid collection or findings to suggest abscess in the deep neck spaces. Slightly enlarged bilateral palatine tonsils. No evidence of periapical abscess. 2. Prominent and enlarged left cervical lymph nodes, likely reactive in the setting of presumed dental infection. I have personally reviewed the examination and initial interpretation and I agree with the findings. ERIK CUMMINGS MD XR Chest Port 1 View Narrative Exam: XR CHEST PORT 1 VW, 12/23/2019 11:43 AM Indication: Cardiac pt, assess for effusion. Comparison: 12/18/2019, 06/25/2019. Findings: A single portable AP view of the chest was obtained. Postsurgical changes related to history of hypoplastic left heart. The cardiac silhouette is unchanged. Trace amount of pleural fluid. No focal airspace consolidation. Impression Impression: Trace amount of pleural fluid. I have personally reviewed the examination and initial interpretation and I agree with the findings. ELINA CASTELLANOS MD Echo Pediatric Congenital (TTE) Narrative [id number]^ALFONSO^YOSVANY Study ID: [id number] [facility] [address] [address] Pediatric Echocardiogram __ Name: JUDE MERRITT Study Date: 12/24/2019 09:36 AM Patient Location: URU6 Age: 19 yrs : 2000 BP: 116/73 mmHg Gender: Male HR: 58 Patient Class: Inpatient Height: 64 in Ordering Provider: YOSVANY HAMILTON Weight: 147 lb BSA: 1.7 m2 [...] P.8 mmHg desc Ao max P.1 mmHg [place] Z-Scores (Measurements & Calculations) Measurement NameValue Z-ScorePredictedNormal [...] approved by: Janee Serna 12/24/2019 11:01 AM Discharge Medications Current Discharge Medication List START taking these medications Details valACYclovir (VALTREX) 1000 mg tablet Take 1 tablet (1,000 mg) by mouth every 12 hours for 4 days Qty: 8 tablet, Refills: 0 Associated Diagnoses: HSV (herpes simplex virus) infection CONTINUE these medications which have NOT CHANGED Details acetaminophen (TYLENOL) 500 MG tablet Take 500 mg by mouth every 8 hours as needed for mild pain DIGOX 250 MCG tablet TAKE ONE TABLET BY MOUTH ONE TIME DAILY Qty: 30 tablet, Refills: 10 Associated Diagnoses: SVT (supraventricular tachycardia) (H) furosemide (LASIX) 20 MG tablet Take 1 tablet (20 mg) by mouth daily Qty: 90 tablet, Refills: 3 Associated Diagnoses: S/P Fontan procedure metoprolol succinate ER (TOPROL-XL) 25 MG 24 hr tablet TAKE ONE TABLET BY MOUTH ONE TIME DAILY Qty: 30 tablet, Refills: 11 Associated Diagnoses: Tachycardia montelukast (SINGULAIR) 10 MG tablet Take 10 mg by mouth At Bedtime omeprazole (PRILOSEC) [address] capsule Take 1 capsule (20 mg) by mouth daily Qty: 90 capsule, Refills: 3 Associated Diagnoses: Chest pain, unspecified type sildenafil (REVATIO) 20 MG tablet Take 1 tablet (20 mg) by mouth three times daily for pulmonary hypertension. Never use with nitroglycerin, terazosin or doxazosin. Qty: 90 tablet, Refills: 11 Associated Diagnoses: Single ventricle with heterotaxia syndrome spironolactone (ALDACTONE) 25 MG tablet TAKE ONE TABLET BY MOUTH ONE TIME DAILY Qty: 30 tablet, Refills: 1 Associated Diagnoses: Hypoplastic left heart syndrome amoxicillin (AMOXIL) 500 MG capsule Take 4 capsules (2,000 mg) by mouth as needed (one hour prior todental cleanings) Qty: 20 capsule, Refills: 3 Associated Diagnoses: S/P Fontan procedure Allergies Allergies Allergen Reactions ??? Seasonal Allergies Itchy eyes, runny nose, hives when around tall grasses documented in this encounter Medications at Time of Discharge Medication Sig Dispensed Refills Start Date End Date amoxicillin (AMOXIL) 500 Take 4 capsules 20 capsule 3 2018 MG capsuleIndications: (2,000 mg) by mouth S/P Fontan procedure as needed (one hour prior to dental cleanings) acetaminophen (TYLENOL) Take 500 mg by mouth 0 02/17/2020 500 MG tablet every 8 hours as needed for mild pain DIGOX 250 MCG TAKE ONE TABLET BY 30 tablet 10 12/18/2018 tabletIndications: SVT MOUTH ONE TIME DAILY (supraventricular tachycardia) (H) furosemide (LASIX) 20 MG Take 1 tablet (20 90 tablet 3 03/1702/17/2020 tabletIndications: S/P mg) by mouth daily Fontan procedure metoprolol succinate ER TAKE ONE TABLET BY 30 tablet 11 01/201902/17/2020 (TOPROL-XL) 25 MG 24 hr MOUTH ONE TIME DAILY tabletIndications: Tachycardia montelukast (SINGULAIR) Take 10 mg by mouth 0 02/17/2020 10 MG tablet At Bedtime omeprazole (PRILOSEC) 20 Take 1 capsule (20 90 capsule 3 11/18/[address] mg) by mouth daily capsuleIndications: Chest pain, unspecified type sildenafil (REVATIO) 20 Take 1 tablet (20 90 tablet 11 11/1909/28/2021 MG tabletIndications: mg) by mouth three 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 Never use with nitroglycerin, terazosin or doxazosin. valACYclovir (VALTREX) Take 1 tablet (1,000 8 tablet 0 02/17/2020 1000 mg mg) by mouth every tabletIndications: 12 hours for 4 days Herpes Simplex Infection documented as of this encounter Progress Notes Maddie Teague RN - 12/29/2019 7:25 AM CDT Patient discharged and out the door at 0720. Car transfer to dental clinic for wisdom teeth removal. Maddie Teague RN - 12/29/2019 6:51 AM CDT [id number]. VSS, afebrile and no pain noted. Good urine output. Went over discharge paperwork with patient around 0600, patient verbally understands discharge and signed paper was returned to chart. PIVdiscontinued. Patient will be taken by arranged car to dental clinic for wisdom teeth removal [id number]. Magda Ferreira RN - 12/28/2019 2:53 PM CDT Brief Mental Health Orderly Progress Note Admission Date/Time: 12/18/2019 Attending MD: Christel Gibson MD Data Chart reviewed, discussed with interdisciplinary team. Patient was admitted for: Viral illness Hyperbilirubinemia Thrombocytopenia (H) Exposure to SARS-associated coronavirus. Concerns with insurance coverage for discharge needs: None. Transportation at Discharge: Van, wheelchair accessible Assessment Received referral to set up transport to [place] for dental procedure. Wheelchair van set through [facility] [employer] ([phone]) for 0730 on 12/28. Plan Anticipated Discharge Date: 12/28 Anticipated Discharge Plan: To dental clinic. Magda Ferreira RN Daysi Fregoso MD - 12/28/2019 8:38 AM CDT [facility] Progress Note - Pediatric Cardiology Service Date of Admission: 12/18/2019 Assessment & Plan ?? 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 Both likely contributing to jaw and throat pain. Transitioned from IV acyclovir to PO ValACYclovir, and continuing PO amoxacillin. Extractionplanned for tomorrow 12/28, plan is to discharge prior to his appointment. ?? Overall doing much better, pain is decreased and better energy. 12/29/2019 tooth extraction planned. ?? Changes 12/27: - Changing from IV acyclovir to PO valacyclovir - Plan to discontinue IV fluids given much improved PO intake - Plan for wisdom tooth removal tomorrow 12/28 ?? ID #HSV pharyngitis #pericorinitis? - PO valacyclovir (previously IV acyclovir 5mg/kg IV q8hrs) for total 10 days antiviral therapy (ending 12/31) - Amoxicillin 500mg q8hrs??to cover dental infection -??ID following, appreciate recs?? - aerobic throat culture 12/22??heavy growth normal rachel?? - repeat aerobic and anaerobic cultures drawn 12/22??NGTD - ehrlichia anaplasma PCR not detected - HIV nonreactive,??negative Strep??PCR,??negative??COVID??PCR x 2,??negative??mono screening??and??negative??RVP.? #Throat Pain -??PRN tylenol - PRN ibuprofen - ketorolac 30mg q6hrs prn moderate pain ?? # dispo planning Jude is 19yo and would like to discharge to his girlfriends (16yo) house where he has been living. His mom want to talk to SW today. Before discharge tomorrow morning we will confirm he is safe to discharge to his girlfriends house. Mom was interested in getting legal custody as she feels he doesn't have capacity to make decisions but he is 19 yrs old and legally capable of making his decisions. -Will touch base with social work ??FEN/GI # poor PO intake # GERD # polyspenia # malrotation s/p [place] procedure # hypokalemia-resolved - Continue to monitor I/Os and diurese as needed - Goal K > 3 ?? CV #??hypoplastic left heart,??double outlet right ventricle,??transposition of the great arteries (d-TGA),??s/p??Fontan??palliation # heterotaxy, polysplenia # pulmonary hypertension #??intermittent ectopic??atrial tachycardia ?? - CXR normal (12/17) - BNP 114 (12/17) - Improved baseline heart rates - digoxin 250 mcg AM - furosemide 20 mg AM - metoprolol succinate ER 25 mg AM - sildenafil 20 mg TID - spironolactone 25 mg AM - followed by Dr. Juarez ?? HEME # thrombocytopenia Platelet count improved to 161.? PSYCHOSOCIAL #hx Major Depressive Disorder #concerns for ability to discharge safely Per care everywhere review, patient had been following with an outpatient psychologist for management of MDD symptoms. Mom has brought up concerns about Lumarina's ability to manage his own healthcare including medication management. Mom has considered pursuing guardianship in the past.??He was admitted to [facility] for a month after his breakup where he met his current girlfriend who is 15 yrs old. ??He is intermittently non compliant.? Lines:??PIV 12/17 DVT Prophylaxis:??Low Risk/Ambulatory with no VTE prophylaxis indicated Villela Catheter:??not present Code Status:??Full Code? Disposition Plan ?? Expected discharge: tomorrow prior to oral surgery as long as PO intake is maintained and he remainsafebrile and clinically stable. Will touch base with Social Work prior to discharge to discuss discharge destination. Entered: Amanda Blackwell MD 12/28/2019, 8:38 AM The patient's care was discussed with the Attending Physician, Dr. Daysi Fregoso. Catarina Moran MD PGY-1 Internal Medicine & Pediatrics Pager Pediatric Cardiology Service [facility] Physician Attestation I, Daysi Fregoso MD, saw this patient with the resident and agree with the resident/fellow's findings and plan of care as documented in the note. I personally reviewed vital signs, medications, labs and imaging. Daysi Fregoso MD Date of Service (when I saw the patient): 12/28/19 Interval History No acute events overnight. Nursing notes reviewed. Afebrile. Stooling. Good urine output. Denies pain, not taking any PRN pain meds and has had good PO intake. Tolerating PO amoxacillin. Data reviewed today: I reviewed all medications, new labs and imaging results over the last 24 hours. Physical Exam Vital Signs: Temp: 96.5 ??F (35.8 ??C)(RN notified) Temp src: Axillary BP: 109/59 Pulse: 51 Heart Rate: 50 Resp: 16 SpO2: 96 % O2 Device: None (Room air) Weight: 142 lbs 3.15 oz GENERAL:??Sleeping??in bed.??Rouses with exam.??No acute distress. Answering questions appropriately. SKIN:??Warm, dry. No rash. HEAD: Normocephalic EYES: Normal conjunctivae. NOSE: Normal without discharge. MOUTH/THROAT:??Mildly hyperemic oropharynx, improving.??No exudates. NECK: Supple, no masses. No asymmetry.?? LUNGS: Clear. No crackles or wheezing HEART: Regular rhythm. Normal S1/S2. Grade 3 systolic murmur heard best at left upper sternal border. Pulses palpable and appropriate.??No peripheral edema. ABDOMEN:??Soft, non tender, not distended,??no masses or hepatosplenomegaly.??Hypoactive bowel??sounds.?? NEUROLOGIC: No focal findings. Cranial nerves grossly intact.?? EXTREMITIES: No deformities. Daysi Fregoso MD - 12/27/2019 12:54 PM CDT [facility] Progress Note - Pediatric Cardiology Service Date of Admission: 12/18/2019 Assessment & Plan ?? 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 Both likely contributing to jaw and throat pain. Started IV acyclovir and Unasyn 12/23/19. ?? Overall doing much better, pain is decreased and better energy. 12/29/2019 tooth extraction planned. ?? Changes 12/26: - extra 10 mg lasix due to fluid up - switched to amoxicillin from unasyn ?? ID #HSV pharyngitis #pericorinitis? - IV acyclovir 5mg/kg IV q8hrs; plan to transition to valacyclovir PO on discharge to complete 10 days total of antiviral therapy - Amoxicillin 500mg q8hrs??to cover dental infection - BMP q48hrs, next 12/27 -??ID following, appreciate recs?? - aerobic throat culture 12/22??heavy growth normal rachel?? - repeat aerobic and anaerobic cultures drawn 12/22??NGTD - ehrlichia anaplasma PCR not detected - HIV nonreactive,??negative Strep??PCR,??negative??COVID??PCR x 2,??negative??mono screening??and??negative??RVP.? 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 - Continue maintenance fluids of D5 normal saline + 20KCl at 100ml/hr - Continue to monitor I/Os and diurese as needed - Goal K > 3 ?? CV #??hypoplastic left heart,??double outlet right ventricle,??transposition of the great arteries (d-TGA),??s/p??Fontan??palliation # heterotaxy, polysplenia # pulmonary hypertension #??intermittent ectopic??atrial tachycardia ?? - CXR normal (12/17) - BNP 114 (12/17) -Sinus vick earlier to 40's which has improved. - digoxin 250 mcg AM - furosemide 20 mg AM - metoprolol succinate ER 25 mg AM - sildenafil 20 mg TID - spironolactone 25 mg AM - followed by Dr. Juarez ?? HEME # thrombocytopenia Platelet count improved to 161.? PSYCHOSOCIAL #hx Major Depressive Disorder #concerns for ability to discharge safely Per care everywhere review, patient had been following with an outpatient psychologist for management of MDD symptoms. Mom has brought up concerns about Lumarina's ability to manage his own healthcare including medication management. Mom has considered pursuing guardianship in the past.??[facility] [facility] for a month after his breakup where he met his current girlfriend who is 15 yrs old. ??He is intermittently non compliant.? Lines:??PIV 12/17 DVT Prophylaxis:??Low Risk/Ambulatory with no VTE prophylaxis indicated Villela Catheter:??not present Code Status:??Full Code? Disposition Plan ?? Expected discharge: 2-3 days, recommended to??discharge to home??once??afebrile, maintains adequate PO intake, pain well controlled on oral pain regimen, plan for PO antiviral and antibiotic treatment in place Entered: Yosvany Hamilton MD 12/27/2019, 12:54 PM The patient's care was discussed with the Attending Physician, Dr. Daysi Fregoso. Yosvany Hamilton MD Pediatric Cardiology Service [facility] Attending Attestation I, Daysi Fregoso MD, saw this patient and have reviewed this patient's history, examined the patient and reviewed relevant laboratory findings and diagnostic testing. I agree with the findings and recommendations as presented in this note. I have discussed the plan of care with the residents and nurse practitioner, nurse, and patient and family members who are present at the time of the visit. I have reviewed and edited this note. Daysi Fregoso M.D. Pediatric Cardiology [facility] Pediatric Cardiology Office [phone]\ 12/27/2019 Interval History No acute events overnight. Nursing notes reviewed. Throat pain improved, this morning rates 5/10. Good PO intake yesterday of almost 1400mL. Afebrile and HDS. Data reviewed today: I reviewed all medications, new labs and imaging results over the last 24 hours. Physical Exam Vital Signs: Temp: 97.9 ??F (36.6 ??C) Temp src: Axillary BP: 121/70 Pulse: 56 Heart Rate: (!) 45 Resp: 16 SpO2: 97 % O2 Device: None (Room air) Weight: 144 lbs 9.95 oz GENERAL:??Sleeping??in bed.??Rouses with exam.??No acute distress. Answering questions appropriately. SKIN:??Warm, dry. No significant rash, abnormal pigmentation or lesions HEAD: Normocephalic EYES: Pupils equal, round. Normal conjunctivae. NOSE: Normal without discharge. MOUTH/THROAT:??Mildly hyperemic oropharynx, improving.?? NECK: Supple, no masses. No asymmetry.?? LUNGS: Clear. No rales, rhonchi, wheezing or retractions HEART: Regular rhythm. Normal S1/S2. Grade 3 systolic murmur heard best at left upper sternal border. Pulses palpable and appropriate.??No peripheral edema. ABDOMEN:??Soft, non tender, not distended,??no masses or hepatosplenomegaly.??Hypoactive bowel??sounds.?? NEUROLOGIC: No focal findings. Cranial nerves grossly intact.?? EXTREMITIES: No deformities. Daysi Fregoso MD - 12/26/2019 8:16 AM CDT [facility] Progress Note - Pediatric Cardiology Service Date of Admission: 12/18/2019 Assessment & Plan ?? 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 Both likely contributing to jaw and throatpain. Started IV acyclovir and Unasyn 12/23/19. Overall doing much better, pain is decreased and better energy. 12/29/2019 tooth extraction planned. ?? Changes 12/25: - extra 10 mg lasix due to fluid up - changed tylenol and ibuprofen to PRN - if good PO continues consider switch to amoxicillin from current IV unasyn ID #HSV pharyngitis #pericorinitis ?? - IV acyclovir 5mg/kg IV q8hrs; plan to transition to valacyclovir PO on discharge to complete 10 days total of antiviral therapy - Ampicillin-sulbactam 3g q6hrs to cover dental infection - BMP, CRP q48hrs, next 12/25 -??ID following, appreciate recs?? - aerobic throat culture 12/22 heavy growth normal rachel?? - repeat aerobic and anaerobic cultures drawn 12/22 NGTD - ehrlichia anaplasma PCR pending - HIV nonreactive, negative Strep PCR, negative COVID PCR x 2, negative mono screening??and negativeRVP.?? 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 - Continue maintenance fluids of D5 normal saline + 20KCl at 100ml/hr - Continue to monitor I/Os and diurese as needed - Goal K > 3 ?? CV # hypoplastic left heart,??double outlet right ventricle,??transposition of the great arteries (d-TGA),??s/p??Fontan??palliation # heterotaxy, polysplenia # pulmonary hypertension #??intermittent ectopic??atrial tachycardia ?? - CXR normal (12/17) - BNP 114 (12/17) -Sinus bradycardia to 40's while sleeping and elevated BP. - digoxin 250 mcg AM - furosemide 20 mg AM - metoprolol succinate ER 25 mg AM - sildenafil 20 mg TID - spironolactone 25 mg AM - followed by Dr. Juarez ?? HEME # thrombocytopenia Platelet count improved to 161. ?? PSYCHOSOCIAL #hx Major Depressive Disorder #concerns for ability to discharge safely Per care everywhere review, patient had been following with an outpatient psychologist for management of MDD symptoms. Mom has brought up concerns about Lumarina's ability to manage his own healthcare including medication management. Mom has considered pursuing guardianship in the past. He was admitted [facility] for a month after his breakup where he met his current girlfriend who is 15 yrs old. ??He is intermittently non compliant. ?? Lines:??PIV 12/17 DVT Prophylaxis:??Low Risk/Ambulatory with no VTE prophylaxis indicated Villela Catheter:??not present Code Status:??Full Code? Disposition Plan ?? Expected discharge: 2-3 days, recommended to??discharge to home??once afebrile, maintains adequate PO intake, social work plan for safe discharge in place, ??and pain well controlled on oral pain regimen Entered: Amanda Blackwell MD 12/26/2019, 8:16 AM The patient's care was discussed with the Attending Physician, Dr. Fregoso. Amanda Blackwell MD Pediatric Cardiology Service [facility] Attending Attestation I, Daysi Fregoso MD, saw this patient and have reviewed this patient's history, examined the patient and reviewed relevant laboratory findings and diagnostic testing. I agree with the findings and recommendations as presented in this note. I have discussed the plan of care with the residents and nurse practitioner, nurse, and patient and family members who are present at the time of the visit. I have reviewed and edited this note. Daysi Fregoso M.D. Pediatric Cardiology [facility] Pediatric Cardiology Office [phone] 12/26/2019 Interval History No acute events overnight. Nursing notes reviewed. PO intake appears to be improving. Remains afebrile. Voiding and stooling appropriately. Pain improving. Data reviewed today: I reviewed all medications, new labs and imaging results over the last 24 hours. Physical Exam Vital Signs: Temp: 97.8 ??F (36.6 ??C) Temp src: Axillary BP: (!) 135/94 Pulse: (!) 44 Heart Rate: 64 Resp: 20 SpO2: 97 % O2 Device: None (Room air) Weight: 146 lbs 9.69 oz GENERAL:??Sleeping??in bed.??Rouses with exam.??No acute distress. SKIN:??Warm, dry. No significant rash, abnormal pigmentation or lesions HEAD: Normocephalic EYES: Pupils equal, round. Normal conjunctivae. NOSE: Normal without discharge. MOUTH/THROAT:??Mildly hyperemic oropharynx, improving.?? NECK: Supple, no masses. Tender/sore to palpation??bilaterally. No asymmetry.?? LUNGS: Clear. No rales, rhonchi, wheezing or retractions HEART: Regular rhythm. Normal S1/S2. Grade 3 systolic murmur heard best at left upper sternal border. Pulses palpable and appropriate.??No peripheral edema. ABDOMEN:??Soft, non tender, not distended,??no masses or hepatosplenomegaly.??Bowel sounds present. NEUROLOGIC: No focal findings. Cranial nerves grossly intact.?? EXTREMITIES: No deformities. 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 He has remained hemodynamically stable through hospitalization with no further fevers but continues to have poor PO intake and significant pain. His labs today are improved, including down trending CRP and normalized platelets. HSV-1 PCR is positive and serology is negative, consistent with primary infection, which likely accounts for more severe symptoms. Possible he has more lesions such as in esophagus which may account for difficulty swallowing. - Continue IV acyclovir 5mg/kg q8h for now with IV hydration. Once able to take PO, would switch to valacyclovir 1g BID to complete 7-10d for primary HSV infection. - Continue amp-sulbactam for dental infection. Can switch to amoxicillin 500 mg TID when able to take PO. - Quantiferon negative. Should be able to be screened with this if future concern for TB exposure for medical employment or group living. - Counseled history of natural history of HSV, routes of transmission and possibility of intermittent or suppressive therapy in the future should he develop recurrent outbreaks - From ID perspective, no objection to discharge when able to maintain hydration and take meds by mouth Recommendations discussed with patient and his mother at bedside. ID will sign off. Please call with additional questions. I spent 15 minutes bedside and on the inpatient unit today providing consultative care for this patient, >50% spent in counseling/coordination of care, and formulation of the treatment plan. Celi Rodriguez MD, PhD Pediatric Infectious Diseases Attending Pager: [phone] Interval History Pain improving and able to take some liquids but not ready to try solids. Planning for dental extraction on Saturday. No fevers. Ibuprofen and tylenol for pain. Physical Exam BP 131/82 Pulse 67 Temp 96.8 ??F (36 ??C) (Axillary) Resp 18 Ht 1.626 m (5' 4) Wt 66 kg (145 lb 8.1 oz) SpO2 96% BMI 24.98 kg/m?? GENERAL: sitting up in bed, listening but doesn't say much while mother in room. SKIN: Clear. No significant rash, abnormal pigmentation or lesions HEAD: Normocephalic EYES: Sclerae and conjunctivae clear. MOUTH: No lip lesions. LUNGS: Breathing comfortably on room air. HEART: extremities well perfused NEUROLOGIC: No focal findings. EXTREMITIES: Full range of motion, no deformities Data K 3.5 Microbiology Quantiferon negative HIV combo negative HSV 1/2 IgG negative ?? Blood 12/18/19 NGTD 12/23/19 Aerobic and anaerobic cultures NGTD Throat culture 12/22/19 normal respiratory rachel ?? Rapid strep and strep PCR 12/18/19 negative ?? CMV IgG positive and IgM negative EBV IgG positive and IgM negative Oral HSV PCR 12/22/19 positive for HSV1 ?? RPP 12/20/19 negative ?? Imaging No new imaging for past 24h ?? Radha Correa, CHIEF QUALITY OFFICER - 12/25/2019 12:51 PM CDT Social Work Progress Note December 25, 2019 Data Management Associate met with Jude and his mother, Jude declined to speak with SW but agreed for SW to speak with his mother, Jaimie, in the room, so it's not behind my back. Management Associate then put in blue tooth earplugs.Mother describes patient as having the following conditions: Borderline Personality Disorder IQ of 80 which is low to average Jaimie describes Jude as a very engaging, wanting to please people, but often jumps from job to job, lies to people that he was kicked out of his parents house (he wasn't), and relies on others to keep him compliant on required medications, we only get called when he is in the hospital or something is terrible wrong. Jude currently lives with his 16 year old girlfriend at her father's house. It wasn't until this admission that Jaimie contacted girlfriend's father to explain he was not kicked out of house. Jaimie is considering obtaining guardianship, and has tried in the past. Management Associate and Jaimie discussed the idea of vulnerable adult and whether he meets that criteria or not. If his behavior is harm to self, she may possibly have a case. Also discussed fdc living. 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 Assessment Jude was disengaged from conversation, at times putting blanket over his head. Jaimie has attempted to gain guardianship but has not pushed, nor did she reach out to family that housed patient until this admission. Plan Follow and support patient and family Radha LAI, [facility] [phone] pager Asiya Costa MD - 12/25/2019 10:23 AM CDTSummary: Evaluation of infection associated with 3rd molars OMFS Brief Note Saw patient today in dental clinic to assess pain and infection associated with teeth #1, 16, 17 and32. Plan is to extract teeth in [facility]FS Clinic with LA and nitrous on Saturday12/29/19 at 8:00 AM. Patient does not need to be NPO and will need transportation to appointment. Asiya Moreno DDS FS PGY 1 Daysi Fregoso MD - 12/25/2019 9:09 AM CDT [facility] [place] Progress Note - Pediatric Cardiology Service Date of Admission: 12/18/2019 Assessment & Plan ?? 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 Both likely contributing to jaw and throatpain. Started IV acyclovir and Unasyn 12/23/19. Dental extraction today. ?? ID #HSV pharyngitis #pericorinitis ?? - IV acyclovir 5mg/kg IV q8hrs; plan to transition to valacyclovir PO on discharge to complete 10 days total of antiviral therapy - Ampicillin-sulbactam 3g q6hrs to cover dental infection - to dentistry clinic today for dental surgery - BMP, CRP q48hrs, next 12/25 -??ID following, appreciate recs?? - aerobic throat culture 12/22 heavy growth normal rachel?? - repeat aerobic and anaerobic cultures drawn 12/22 NGTD - ehrlichia anaplasma PCR pending - HIV nonreactive, negative Strep PCR, negative COVID PCR x 2, negative mono screening??and negativeRVP.?? 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 - Continue maintenance fluids of D5 normal saline + 20KCl at 100ml/hr - Continue to monitor I/Os and diurese as needed ?? CV # hypoplastic left heart,??double outlet right ventricle,??transposition of the great arteries (d-TGA),??s/p??Fontan??palliation # heterotaxy, polysplenia # pulmonary hypertension #??intermittent ectopic??atrial tachycardia ?? - CXR normal (12/17) - BNP 114 (12/17) - digoxin 250 mcg AM - furosemide 20 mg AM - metoprolol succinate ER 25 mg AM - sildenafil 20 mg TID - spironolactone 25 mg AM - followed by Dr. Juarez ?? HEME # thrombocytopenia Platelet count improved to 161. ?? PSYCHOSOCIAL #hx Major Depressive Disorder #concerns for ability to discharge safely Per care everywhere review, patient had been following with an outpatient psychologist for management of MDD symptoms. Mom has brought up concerns about Jude's ability to manage his own healthcare including medication management. Mom has considered pursuing guardianship in the past. [facility] where he met his current girlfriend who is 15 yrs old. ??He is intermittently non compliant. - Social work to see today. ?? Lines:??PIV 12/17 DVT Prophylaxis:??Low Risk/Ambulatory with no VTE prophylaxis indicated Villela Catheter:??not present Code Status:??Full Code? Disposition Plan ?? Expected discharge:??3-5 days, recommended to??discharge to home??once completes dental work-up, afebrile, maintains adequate PO intake, social work sees pt,?and pain well controlled on oral pain regimen Entered: Yosvany Hamilton MD 12/25/2019, 9:09 AM The patient's care was discussed with the Attending Physician, Dr. Fregoso. Yosvany Hamilton MD Pediatric Cardiology Service [facility] Attending Attestation I, Daysi Fregoso MD, saw this patient and have reviewed this patient's history, examined the patient and reviewed relevant laboratory findings and diagnostic testing. I agree with the findings and recommendations as presented in this note. I have discussed the plan of care with the residents and nurse practitioner, nurse, and patient and family members who are present at the time of the visit. I have reviewed and edited this note. Daysi Fregoso M.D. Pediatric Cardiology [facility] Pediatric Cardiology Office [phone] 12/25/2019 Interval History Some increased throat pain overnight. Received 1 dose toradol and one dose morphine this morning with some relief. No other concerns. Data reviewed today: I reviewed all medications, new labs and imaging results over the last 24 hours. Physical Exam Vital Signs: Temp: 98 ??F (36.7 ??C) Temp src: Oral BP: 126/83 Heart Rate: 52 Resp: 17 SpO2: 94 % Z3Hnccsp: None (Room air) Weight: 145 lbs 8.06 oz GENERAL:??Sleeping??in bed.??Arouses and answers and engages appropriately.??Responds to questions. SKIN:??Warm, dry. No significant rash, abnormal pigmentation or lesions HEAD: Normocephalic EYES: Pupils equal, round. Normal conjunctivae. NOSE: Normal without discharge. MOUTH/THROAT:??Mildly hyperemic oropharynx.?? NECK: Supple, no masses. No adenopathy. Tender/sore to palpation??bilaterally. No asymmetry.?? LUNGS: Clear??with diminished sounds bilaterally. No rales, rhonchi, wheezing or retractions HEART: Regular rhythm. Normal S1/S2. Grade 3 systolic murmur heard best at left upper sternal border. No gallops or rubs appreciated.??Pulses palpable and appropriate.??No peripheral edema. ABDOMEN:??Soft, non tender, not distended,??no masses or hepatosplenomegaly.??Bowel sounds present. NEUROLOGIC: No focal findings. Cranial nerves grossly intact.?? EXTREMITIES: Full range of motion, no deformities?? Data Potassium 3.5 Dulce Oneill RN - 12/25/2019 8:38 AM CDT Pt transferred with EMS transport at 08 for dental appointment at clinic on [address]. Report given to EMS. No parents at bedside, pt signed for transfer. Mom informed by phone via RN. MD Yosvany Hamilton informed of transfer. Plan for pt to come back to hospital room [id number] after appointment. 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 He has remained hemodynamically stable through hospitalization with no further fevers but continues to have poor PO intake and significant pain. His labs today are improved, including down trending CRP and normalized platelets. HSV-1 PCR is positive and serology is negative, consistent with primary infection, which likely accounts for more severe symptoms. Possible he has more lesions such as in esophagus which may account for difficulty swallowing. - Continue IV acyclovir 5mg/kg q8h for now with IV hydration. Once able to take PO, would switch to valacyclovir 1g BID to complete 7-10d for primary HSV infection. - Would recommend all meds and hydration given IV for now given ongoing pain with swallowing. - Continue amp-sulbactam for dental infection. Can switch to amoxicillin when able to take PO. - Awaiting Quantiferon. If positive, would offer LTBI treatment to reduce risk of developing active TB in the future. Recommendations discussed with primary cardiology team and patient at bedside. I spent 25 minutes bedside and on the inpatient unit today providing consultative care for this patient, >50% spent in counseling/coordination of care, and formulation of the treatment plan. Celi Rodriguez MD, PhD Pediatric Infectious Diseases Attending Pager: [phone] Interval History Continued severe mouth pain and now pain going down mid-chest/esophagus with swallowing. Unable to tolerate any PO, including liquid or pills for potassium replacement. No fevers. More alert today. Hadpanorex x-rays and planning for extraction. No stool. Physical Exam Temp: 98 ??F (36.7 ??C) Temp src: Axillary BP: 126/77 Pulse: 67 Heart Rate: 64 Resp: 18 SpO2: 91 % O2 Device: None (Room air) Vitals: 12/18/192 12/19/19 0128 12/22/19 1400 Weight: 67.6 kg (149 lb 0.5 oz) 66.2 kg (145 lb 15.1 oz) 66.9 kg (147 lb 7.8 oz) Vital Signs with Ranges Temp: [98 ??F (36.7 ??C)-99.5 ??F (37.5 ??C)] 98 ??F (36.7 ??C) Pulse: [67-71] 67 Heart Rate: [59-73] 64 Resp: [16-27] 18 BP: (115-141)/(73-97) 126/77 SpO2: [91 %-98 %] 91 % I/O last 3 completed shifts: In: [P.O.:180; I.V.:9.] Out: 2049 [Urine:2049] GENERAL: More interactive, sitting up in chair SKIN: Clear. No significant rash, abnormal pigmentation or lesions HEAD: Normocephalic EYES: Sclerae and conjunctivae clear. LUNGS: Clear. No rales, rhonchi, wheezing or retractions HEART: Regular rhythm. Normal S1/S2. No murmurs. Normal pulses. Well-healed midline surgical scar. ABDOMEN: Soft, non-tender, not distended NEUROLOGIC: No focal findings. EXTREMITIES: Full range of motion, no deformities Medications ??? dextrose 5% and 0.9% NaCl with potassium chloride 20 mEq 100 mL/hr (12/24/19 1715) ??? acetaminophen 500 mg Oral Q6H ??? acyclovir (ZOVIRAX) IV 5 mg/kg Intravenous Q8H ??? [Held by provider] amoxicillin 500 mg Oral TID ??? ampicillin-sulbactam (UNASYN) IV 3 g Intravenous Q6H ? ? chlorhexidine 15 mL Swish & Spit BID ??? digoxin 250 mcg Oral Daily ??? furosemide 20 mg Oral Daily ??? ibuprofen 400 mg Oral Q6H ??? metoprolol succinate ER 25 mg Oral Daily ??? montelukast 10 mg Oral QAM ??? omeprazole 20 mg Oral Daily ??? potassium chloride 20 mEq Oral Once ??? potassium chloride 10 mEq Intravenous Once ??? sildenafil 20 mg Oral TID ??? sodium chloride 100 mL Intravenous Once ??? spironolactone 25 mg Oral Daily Data 06/21/2017 13:42 06/25/2019 12:21 12/18/2019 22:03 12/22/2019 09:24 12/24/2019 06:15 CRP Inflammation <2.9 8.4 (H) 36.0 (H) 107.0 (H) 48.3 (H) 12/24/2019 06:15 WBC 6.4 Hemoglobin 14.3 Hematocrit 43.0 Platelet Count 161 RBC Count 5.03 MCV 86 MCH 28.4 MCHC 33.3 RDW 12.5 12/24/2019 06:15 Sodium 140 Potassium 3.2 (L) Chloride 108 Carbon Dioxide 27 Urea Nitrogen 11 Creatinine 0.82 GFR Estimate >90 GFR Estimate If Black >90 Calcium 8.1 (L) Anion Gap 5 Microbiology HIV combo negative HSV 1/2 IgG negative ?? Blood 12/18/19 NGTD 12/23/19 Aerobic and anaerobic cultures NGTD Throat culture 12/22/19 normal respiratory rachel ?? Rapid strep and strep PCR 12/18/19 negative ?? CMV IgG positive and IgM negative EBV IgG positive and IgM negative Oral HSV PCR 12/22/19 positive for HSV1 ?? RPP 12/20/19 negative ?? Imaging 12/23/19 CXR Trace amount of pleural fluid. No new infiltrates on my independent review. 12/23/19 CT neck 1. No focal fluid collection or findings to suggest abscess in the deep neck spaces. Slightly enlarged bilateral palatine tonsils. No evidence of periapical abscess. 2. Prominent and enlarged left cervical lymph nodes, likely reactive in the setting of presumed dental infection. ?? Kaylynn Murillo RN - 12/24/2019 4:30 PM CDT Patient unable to swallow Potassium, I was able to successfully administer 4ml before the patient pulled away and refused the remaining dose. [place] Team notified. Daysi Fregoso MD - 12/24/2019 8:45 AM CDT [facility] [place] Progress Note - Pediatric Cardiology Service Date of Admission: 12/18/2019 ?? Assessment & Plan ?? 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 Both likely contributing to jaw and throatpain. Started IV acyclovir and Unasyn yesterday. Pain and PO intake improving along with down trending CRP and ?? ID #HSV pharyngitis #pericorinitis - IV acyclovir 5mg/kg IV q8hrs; plan to transition to valacyclovir PO on discharge to complete 7 days total of antiviral therapy - Ampicillin-sulbactam 3g q6hrs to cover dental infection - dentistry consulted, dental xray today in dentistry clinic - BMP, CRP q48hrs -??ID following, appreciate recs - aerobic throat culture 12/22 heavy growth normal rachel - repeat aerobic and anaerobic cultures drawn 12/22 NGTD - ehrlichia anaplasma PCR pending - HIV nonreactive, negative Strep PCR, negative COVID PCR x 2, negative mono screening??and negativeRVP.?? 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 CV # hypoplastic left heart,??double outlet right ventricle,??transposition of the great arteries (d-TGA),?s/p??Fontan??palliation # heterotaxy, polysplenia # pulmonary hypertension #??intermittent ectopic??atrial tachycardia - TTE today to assess function (unchanged from last echocardiogram). - CXR normal (12/17) - BNP 114 (12/17) - digoxin 250 mcg AM - furosemide 20 mg AM - metoprolol succinate ER 25 mg AM - sildenafil 20 mg TID - spironolactone 25 mg AM - followed by Dr. Juarez ?? HEME # thrombocytopenia Platelet count improved to 161. ?? PSYCHOSOCIAL #hx Major Depressive Disorder #concerns for ability to discharge safely Per care everywhere review, patient had been following with an outpatient psychologist for management of MDD symptoms. Mom has brought up concerns about Lumarina's ability to manage his own healthcare including medication management. Mom has considered pursuing guardianship in the past. [facility] where he met his current girlfriend who is 15 yrs old. He is intermittently non compliant. Social work to see today. ?? Lines:??PIV 12/17 DVT Prophylaxis:??Low Risk/Ambulatory with no VTE prophylaxis indicated Villela Catheter:??not present Code Status:??Full Code ?? Disposition Plan Expected discharge: 2 - 3 days, recommended to discharge to home??once completes dental work-up, afebrile, maintains adequate PO intake, social work sees pt, and pain well controlled on oral pain regimen Entered: Yosvany Hamilton MD 12/24/2019, 8:45 AM The patient's care was discussed with the Attending Physician, Dr. Fregoso. Yosvany Hamilton MD Pediatric Cardiology Service [facility] Attending Attestation I, Daysi Fregoso MD, saw this patient and have reviewed this patient's history, examined the patient and reviewed relevant laboratory findings and diagnostic testing. I agree with the findings and recommendations as presented in this note. I have discussed the plan of care with the residents and nurse practitioner, nurse, and patient and family members who are present at the time of the visit. I have reviewed and edited this note. Daysi Fregoso M.D. Pediatric Cardiology [facility] Pediatric Cardiology Office [phone] 12/24/2019 Interval History Overnight one episode of chest pain coinciding with first dose of Unasyn. Exam unremarkable, ECG andtroponin reassuring. Pain resolved with tylenol and benadryl. Throat pain no longer rated as 10/10, more like 6-7/10. Data reviewed today: I reviewed all medications, new labs and imaging results over the last 24 hours. Physical Exam Vital Signs: Temp: 98.3 ??F (36.8 ??C) Temp src: Axillary BP: 116/73 Pulse: 67 Heart Rate: 64 Resp: 20 SpO2: 93 % O2 Device: None (Room air) Weight: 147 lbs 7.8 oz GENERAL:??Sleeping??in bed.??Arouses and answers and engages appropriately.??Responds to questions. SKIN:??Warm, dry. No significant rash, abnormal pigmentation or lesions HEAD: Normocephalic EYES: Pupils equal, round. Normal conjunctivae. NOSE: Normal without discharge. MOUTH/THROAT:??Mildly hyperemic oropharynx.?? NECK: Supple, no masses. No adenopathy. Tender/sore to palpation??bilaterally. No asymmetry.?? LUNGS: Clear??with diminished sounds bilaterally. No rales, rhonchi, wheezing or retractions HEART: Regular rhythm. Normal S1/S2. Grade 3 systolic murmur heard best at left upper sternal border. No gallops or rubs appreciated.??Pulses palpable and appropriate.??No peripheral edema. ABDOMEN:??Soft, non tender, not distended,??no masses or hepatosplenomegaly.??Bowel sounds hyperactive but present. NEUROLOGIC: No focal findings. Cranial nerves grossly intact. No nuchal rigidity with passive neck flexion. EXTREMITIES: Full range of motion, no deformities?? Data Recent Labs Lab 12/24/19 0615 12/24/19 0049 12/22/19 0924 12/18/19 2203 WBC 6.4 -- 9.7 10.7 HGB 14.3 -- 14.1 15.8 MCV 86 -- 88 87 PLT 161 -- 105* 114* NA 140 -- 139 138 POTASSIUM 3.2* -- 3.3* 3.8 CHLORIDE 108 -- 107 105 CO2 27 -- 25 26 BUN 11 -- 14 15 CR 0.82 -- 0.81 0.96 ANIONGAP 5 -- 7 7 GOYO 8.1* -- 8.1* 8.6 GLC 117* -- 75 77 ALBUMIN -- -- -- 4.0 PROTTOTAL -- -- -- 7.8 BILITOTAL -- -- -- 2.7* ALKPHOS -- -- -- 67 ALT -- -- -- 23 AST -- -- -- 27 TROPI -- <0.015 <0.015 -- CRP 48.3 from 107 on 12/[address] - 12/24/2019 8:24 AM CDT CLINICAL NUTRITION SERVICES - PEDIATRIC ASSESSMENT NOTE REASON FOR ASSESSMENT Jude Merritt is a 19 year old male seen by the dietitian for LOS. Medical history pertinent for [facility]HS s/p palliation. ANTHROPOMETRICS 12/19/19 Height/Length: 162.6 cm, 2.4%tile, -1.98 z score (12/19/19) Weight: 66.2 kg, 34.5%tile, -0.40 z score BMI: 25.32 kg/m^2, 72.6%tile, 0.60 z score Dosing Weight: 66.2 kg Comments: Has likely reached peak height; length near 3%tile for the past 2 years. Weight trending near 25%tile; has gained 1.5 kg since August. NUTRITION HISTORY Unable to reach patient/family by phone to discuss current diet. Per EMR, has been consuming mostly ice cream and jello during admission. Note today says PO intake improving. Information obtained from EMR. Factors affecting nutrition intake include:decreased appetite, pain and swallowing difficulties CURRENT NUTRITION ORDERS Diet: Peds 9-18 yrs CURRENT NUTRITION SUPPORT Pt not currently on nutrition support. 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 Would suspect he is at risk due to decreased intake. NUTRITION DIAGNOSIS: Predicted suboptimal energy intake related to decreased appetite as evidenced by reliant on PO intake to meet estimated nutrition needs. INTERVENTIONS Nutrition Prescription Will receive assessed nutrition needs to support weight stabilization during hospitalization. Implementation: Nutritional Supplements: Consider nutritional supplements if PO intake does not increase. Collaboration and Referral of Nutrition Care: See recommendations regarding nutritional plan of carebelow. Goals 1. Will maintain weight during hospital admission. 2. Will receive 100% estimated calorie and protein needs during hospitalization. FOLLOW UP/MONITORING Energy Intake-calorie intake Food and Beverage intake-PO intake Anthropometric measurements-weight RECOMMENDATIONS 1. Continue to encourage PO intake as tolerated. 2. Recommend nutritional supplement such as Boost Plus or Boost Breeze to supplement PO intake if appetite does not continue to improve. 3. If unable to consume adequate nutrition PO and nutrition support desired, suggest Nutren 1.5 at 53 mL/hr x 12-24 hrs to provide 640-1280 mL, 950-1900 kcal, 44-87 g pro, meeting 50-100% estimated needs. Maddie Han, PhD, RD, LD Coverage for Jennifer Gallo RD, LD Pager: [phone] Frida Hammond - 12/23/2019 3:19 PM CDTSummary: spiritual care visit [facility] ([facility] Peds Unit 6 REFERRAL SOURCE: admission request Initial visit with Jude & his mom. Jude was sitting up in his chair, appeared tired, and participated in conversation only through nods. Family's main concern at this time is getting to the bottomof things so they can fix it. Family is Yazidi by background and shared that prayers are always appreciated. Otherwise, no spiritual needs or support needs identified. PLAN: No planned follow-up, though chaplains remain available as requested. 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 He has remained hemodynamically stable through hospitalization with no further fevers but continues to have poor PO intake and significant pain. We now have several possible explanations for symptoms. His HSV-1 PCR is positive. His degree of illness seems more compatible with a primary infection, though he reported as history of cold sores to me previously. He also has pericoronitis and will be receiving panorex imaging tomorrow to inform planfor possible extraction. - Given inability to take PO due to pain, would start IV acyclovir 5mg/kg q8h. - Agree with amoxicillin as recommended by dental for pericoronitis. Ok to convert to ampicillin if unable to take due to odynophagia - Although patient reports history of cold sores, degree of illness could be more compatible with primary infection. Added on serologies to clarify prior immune status. - Given his history of residence in [place] when young child and history of BCG, would recommend LTBI screening with Quantiferon. If positive, would offer LTBI treatment to reduce risk of developing active TB in the future. I reviewed this with mother and she confirmed that he received BCG and never received any LTBI treatment. 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 - Please repeat CBC and BMP in morning to follow while on IV acyclovir and to follow trend of platelets, which had been decreasing Recommendations discussed with primary cardiology team and mother and patient at bedside. I spent 35 minutes bedside and on the inpatient unit today providing consultative care for this patient, >50% spent in counseling/coordination of care, and formulation of the treatment plan. Celi Rodriguez MD, PhD Pediatric Infectious Diseases Attending Pager: [phone] Interval History Continued severe mouth pain. No fevers. More sleepy than usual per mother. Slept 10h overnight, which is more than usual. Not taking PO food or meds due to oral pain. 1 stool today. Good urine output. Physical Exam Temp: 99.4 ??F (37.4 ??C) Temp src: Oral BP: 116/71 Pulse: 66 Heart Rate: 64 Resp: 20 SpO2: 97 % O2 Device: None (Room air) Vitals: 12/18/19 2052 12/19/19 0128 12/22/19 1400 Weight: 67.6 kg (149 lb 0.5 oz) 66.2 kg (145 lb 15.1 oz) 66.9 kg (147 lb 7.8 oz) Vital Signs with Ranges Temp: [96.8 ??F (36 ??C)-99.4 ??F (37.4 ??C)] 99.4 ??F (37.4 ??C) Pulse: [66] 66 Heart Rate: [61-68] 64 Resp: [16-22] 20 BP: (116-132)/(71-88) 116/71 SpO2: [96 %-98 %] 97 % I/O last 3 completed shifts: In: 1136.25 [I.V.:1136.25] Out: 1874 [Urine:1874] GENERAL: Less interactive, blankets pulled up over head in chair SKIN: Clear. No significant rash, abnormal pigmentation or lesions HEAD: Normocephalic EYES: Sclerae and conjunctivae clear. MOUTH/THROAT: No new lesions. 3rd molars still very tender to palpation. Mild soft tissue swelling over both cheeks. NECK: Still supple and able to fully flex neck. LYMPH NODES: Small palpable lymph nodes. LUNGS: Clear. No rales, rhonchi, wheezing or retractions HEART: Regular rhythm. Normal S1/S2. No murmurs. Normal pulses. Well-healed midline surgical scar. ABDOMEN: Soft, non-tender, not distended NEUROLOGIC: No focal findings. EXTREMITIES: Full range of motion, no deformities Medications ??? dextrose 5% and 0.9% NaCl with potassium chloride 20 mEq 100 mL/hr at 12/23/19 1631 ??? acetaminophen 500 mg Oral Q6H ??? acyclovir (ZOVIRAX) IV 5 mg/kg Intravenous Q8H ??? amoxicillin 500 mg Oral TID ? ? chlorhexidine 15 mL Swish & Spit BID ??? digoxin 250 mcg Oral Daily ??? furosemide 20 mg Oral Daily ??? ibuprofen 400 mg Oral Q6H ??? metoprolol succinate ER 25 mg Oral Daily ??? montelukast 10 mg Oral QAM ??? omeprazole 20 mg Oral Daily ??? sildenafil 20 mg Oral TID ??? sodium chloride 100 mL Intravenous Once ??? spironolactone 25 mg Oral Daily Data Microbiology HIV combo negative ?? Blood 12/18/19 NGTD 12/23/19 Aerobic and anaerobic cultures NGTD Throat culture 12/22/19 normal respiratory rachel ?? Rapid strep and strep PCR 12/18/19 negative ?? CMV IgG positive and IgM negative EBV IgG positive and IgM negative Oral HSV PCR 12/22/19 positive for HSV1 ?? RPP 12/20/19 negative ?? Imaging 12/23/19 CXR Trace amount of pleural fluid. No new infiltrates on my independent review. 12/23/19 CT neck 1. No focal fluid collection or findings to suggest abscess in the deep neck spaces. Slightly enlarged bilateral palatine tonsils. No evidence of periapical abscess. 2. Prominent and enlarged left cervical lymph nodes, likely reactive in the setting of presumed dental infection. ?? Elvi Lino MSW - 12/23/2019 12:06 PM CDT SW Note: SW talked with RN around 11a in regards SW consult placed. RN reports that pt's mother (currently at bedside) has expressed concerns for his wellbeing, medication management and his living situation. SW did a chart review. Given that the pt is 19, SW relayed that he ultimately has choice in his care, living situations etc. RN shared that mother of pt would like him to have more support in his life (personal case management social worker etc.). SW planed to check-in with pt this afternoon in hopes to gather more information and better understand pt's situation and offer supports, if necesisary.SW called room, pt was sleeping and mother answered phone. Mother was happy to hear SW will follow-up with pt and said tomorrow works best, in person rather than over the phone. SW will be out tomorrow and Saturday but has communicated this consult to covering SW. Social work will continue to assess needs and provide ongoing psychosocial support and access to resources. *Will amend note after meeting with pt. Elvi Lino Barrel Scraper Pager: [phone] Daysi Fregoso MD - 12/23/2019 10:43 AM CDT [facility] [place] Progress Note - Pediatric Cardiology Service Date of Admission: 12/18/2019 Assessment & Plan ?? 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 ??Work-up thus far unremarkable for cause offever/pharyngitis, including strep, COVID, mono screening??and RVP. Continued throat/jaw pain and poor PO intake of unclear etiology. ID #pharyngitis?? Cause still unclear. Continued decreased PO intake and lethargy/sleepiness over past few days is concerning. Neck CT without signs of localized abscess but suggestive of infection of some kind with left sided adenopathy. - dentistry consulted, to examine today and dental xray tomorrow in dentistry clinic - ID following, appreciate recs - aerobic throat culture 12/22 pending - repeat aerobic and anaerobic cultures drawn 12/22 pending - ehrlichia anaplasma PCR pending - HIV nonreactive - COVID 19 PCR negative x 2 - RVP negative 12/19 - negative CMV and EBV IgM levels; + IgG levels 12/19 - Rapid strep and strep PCR done 12/17 negative; aerobic throat culture 12/22 pending - Blood culture 12/18 NGTD - CXR normal (12/17) - Mononucleosis screen negative 12/18 -??alternating??acetaminophen 500 mg Q6hr??and??ibuprofen??400 mg Q6hr??to receive pain meds q3hr?FEN/GI # poor PO intake # GERD # polyspenia # 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 Is + 4L for his stay due to IVF. May be fluid overloaded and benefit from diuresis. -Chest xray; consider 1 time dose 10mg lasix PO if he appears fluid overloaded - omeprazole 20 mg AM - regular diet CV # hypoplastic left heart, double outlet right ventricle, transposition of the great arteries (d-TGA), s/p??Fontan palliation # heterotaxy, polysplenia # pulmonary hypertension # intermittent ectopic atrial tachycardia - CXR normal (12/17) - BNP 114 (12/17) - digoxin 250 mcg AM - furosemide 20 mg AM; consider prn dosing as above for concerns of fluid overload - metoprolol succinate ER 25 mg AM - sildenafil 20 mg TID - spironolactone 25 mg AM - followed by Dr. Juarez HEME # thrombocytopenia Repeat plt count 105 from 114. Continue to monitor. ?? PSYCHOSOCIAL #hx Major Depressive Disorder #concerns for ability to discharge safely Per care everywhere review, patient had been following with an outpatient psychologist for management of MDD symptoms. Mom has brought up concerns about Luke's ability to manage his own healthcare including medication management. Mom has considered pursuing guardianship in the past. He was admitted [facility] for a month after his breakup where he met his current girlfriend who is 15 yrs old. He is intermittently non compliant. Will consult social work Lines:??PIV 12/17 DVT Prophylaxis:??Low Risk/Ambulatory with no VTE prophylaxis indicated Villela Catheter:??not present Code Status:??Full Code Disposition Plan Expected discharge: 2 - 3 days, recommended to discharge to home??once afebrile, maintains adequate PO intake, social work sees pt, and pain well controlled on oral pain regimen Entered: Yosvany Hamilton MD 12/23/2019, 10:43 AM The patient's care was discussed with the Attending Physician, Dr. Fregoso. Yosvany Hamilton MD Pediatric Cardiology Service [facility] Attending Attestation I, Daysi Fregoso MD, saw this patient and have reviewed this patient's history, examined the patient and reviewed relevant laboratory findings and diagnostic testing. I agree with the findings and recommendations as presented in this note. I have discussed the plan of care with the residents and nurse practitioner, nurse, and patient and family members who are present at the time of the visit. I have reviewed and edited this note. Daysi Fregoso M.D. Pediatric Cardiology [facility] Pediatric Cardiology Office [phone] 12/23/2019 Interval History No acute events overnight. Patient underwent CT neck with contrast around 2am, with no findings concerning for abscess. Very poor PO intake that has been consistently poor throughout hospitalization. Also sleeping a lot, with very little energy. Mom here during morning rounds and expresses concern about Luke's ability to care for himself including taking his medications. He does not have a guardian, but apparently this was considered during a previous inpatient psychiatric hospitalization last year. Data reviewed today: I reviewed all medications, new labs and imaging results over the last 24 hours. Physical Exam Vital Signs: Temp: 96.8 ??F (36 ??C) Temp src: Axillary BP: 116/74 Pulse: 66 Heart Rate: 61 Resp: 22SpO2: 97 % O2 Device: None (Room air) Weight: 147 lbs 7.8 oz GENERAL: Sleeping in bed. Arouses and answers and engages appropriately. Responds to questions. SKIN:??Warm, dry. No significant rash, abnormal pigmentation or lesions HEAD: Normocephalic EYES: Pupils equal, round. Normal conjunctivae. NOSE: Normal without discharge. MOUTH/THROAT:??Mildly hyperemic oropharynx.?? NECK: Supple, no masses. No adenopathy. Tender/sore to palpation??bilaterally. No asymmetry.?? LUNGS: Clear??with diminished sounds bilaterally. No rales, rhonchi, wheezing or retractions HEART: Regular rhythm. Normal S1/S2. Grade 3 systolic murmur heard best at left upper sternal border. No gallops or rubs appreciated.??Pulses palpable and appropriate.??No peripheral edema. ABDOMEN:??Soft, non tender, not distended,??no masses or hepatosplenomegaly.??Bowel sounds normal. NEUROLOGIC: No focal findings. Cranial nerves grossly intact. No nuchal rigidity with passive neck flexion. EXTREMITIES: Full range of motion, no deformities?? Data Last Comprehensive Metabolic Panel: Sodium Date Value Ref Range Status 12/22/2019 139 133 - 144 mmol/L Final Potassium Date Value Ref Range Status 12/22/2019 3.3 (L) 3.4 - 5.3 mmol/L Final Chloride Date Value Ref Range Status 12/22/2019 107 98 - 110 mmol/L Final Carbon Dioxide Date Value Ref Range Status 12/22/2019 25 20 - 32 mmol/L Final Anion Gap Date Value Ref Range Status 12/22/2019 7 3 - 14 mmol/L Final Glucose Date Value Ref Range Status 12/22/2019 75 70 - 99 mg/dL Final Urea Nitrogen Date Value Ref Range Status 12/22/2019 14 7 - 30 mg/dL Final Creatinine Date Value Ref Range Status 12/22/2019 0.81 0.50 - 1.00 mg/dL Final GFR Estimate Date Value Ref Range Status 12/22/2019 >90 >60 mL/min/[1.73_m2] Final Comment: Non GFR Calc Starting 06/03/2018, serum creatinine based estimated GFR (eGFR) will be calculated using the Chronic Kidney Disease Epidemiology Collaboration (CKD-EPI) equation. Calcium Date Value Ref Range Status 12/22/2019 8.1 (L) 8.5 - 10.1 mg/dL Final CBC RESULTS: Recent Labs Lab Test 12/22/19 0924 WBC 9.7 RBC 4.88 HGB 14.1 HCT 42.7 MCV 88 MCH 28.9 MCHC 33.0 RDW 12.9 PLT 105* CRP 107; N-terminal Pro BNP 299; Troponin I <0.015 Throat culture 12/21: pending Blood cultures 12/18 aerobic: NGTD 12/22 aerobic and anaerobic: pending HIV nonreactive CT Neck with contrast 12/17/19: Impression: 1. No focal fluid collection or findings to suggest abscess in the deep neck spaces. Slightly enlarged bilateral palatine tonsils. No evidence of periapical abscess. 2. Prominent and enlarged left cervical lymph nodes, likely reactive in the setting of presumed dental infection. Patrizia Marino RN - 12/23/2019 9:19 AM CDT Page to [place] resident, Yosvany Hamilton, that pt is having intermittent dips to 87-88% while sleeping.Per mom, this is not baseline, pt normally is >93%. No other vital changes at this time. Daysi Fregoso MD - 12/22/2019 8:49 AM CDT [facility], [place] Progress Note - Pediatric Cardiology Service Assessment & Plan ?? 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 Continued throat/jaw pain and poor PO intake warrant further work-up and iv fluids. ?? ID # fever/pharyngitis, elevated CRP - COVID 19 PCR negative x 2 - RVP negative 12/19 - negative CMV and EBV IgM levels; + IgG levels 12/19 - Rapid strep and strep PCR done 12/17 negative - Blood culture NGTD - CXR normal (12/17) - Mononucleosis screen negative 12/18 - alternating acetaminophen 500 mg Q6hr and ibuprofen 400 mg Q6hr to receive pain meds q3hr?? - repeat CBC with differential, CRP, BMP, BNP, troponin - consult ID, appreciate recs - consult dentistry, appreciate recs - consider bacterial throat culture ?? HEME # thrombocytopenia - Labs as above ?? CV # hypoplastic left heart, double outlet right ventricle, transposition of the great arteries (d-TGA), s/p Fontan palliation # heterotaxy, polysplenia # pulmonary hypertension # intermittent ectopic atrial tachycardia - CXR normal (12/17) - BNP 114 (12/17) - digoxin 250 mcg AM - furosemide 20 mg AM - metoprolol succinate ER 25 mg AM - sildenafil 20 mg TID - spironolactone 25 mg AM - followed by primary hotel reservation agent Dr. Juarez - labs as above ?? 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 Lines:??PIV 12/17 DVT Prophylaxis:??Low Risk/Ambulatory with no VTE prophylaxis indicated Villela Catheter:??not present Code Status:??Full Code ? Disposition Plan ?? Expected discharge:??3-5 days, recommended to??home??once afebrile, maintains adequate PO intake andpain well controlled on oral pain regimen.?? Entered: Yosvany Hamilton MD 12/22/2019, 8:49 AM The patient's care was discussed with the Attending Physician, Dr. Fregoso. Yosvany Hamilton MD Pediatric Cardiology Service [facility] Attending Attestation I, Daysi Fregoso MD, saw this patient and have reviewed this patient's history, examined the patient and reviewed relevant laboratory findings and diagnostic testing. I agree with the findings and recommendations as presented in this note. I have discussed the plan of care with the residents and nurse practitioner, nurse, and patient and family members who are present at the time of the visit. I have reviewed and edited this note. Daysi Fregoso M.D. Pediatric Cardiology [facility] Pediatric Cardiology Office [phone] 12/22/2019 Interval History Jude continues to have significant throat pain, which is impacting his ability to drink. States he also is having some jaw pain bilaterally near his wisdom teeth, which has been bothering him for months. He states he had been planning to get his wisdom teeth removed, but the COVID-19 pandemic had put those plans on hold. Data reviewed today: I reviewed all medications, new labs and imaging results over the last 24 hours. Physical Exam Vital Signs: Temp: 98.2 ??F (36.8 ??C) Temp src: Axillary BP: 120/74 Pulse: 61 Heart Rate: 74 Resp: 16 SpO2: 95 % O2 Device: None (Room air) Weight: 145 lbs 15.11 oz GENERAL: Sleeping in bed. Intermittently arousable and answers in monosyllables. Responds to questions. SKIN:??Warm, dry. No significant rash, abnormal pigmentation or lesions HEAD: Normocephalic EYES: Pupils equal, round. Normal conjunctivae. NOSE: Normal without discharge. MOUTH/THROAT:??Mildly hyperemic oropharynx and lower third molar teeth NECK: Supple, no masses. No adenopathy. Able to flex is neck. Not rigid. No asymmetry. LUNGS: Clear with diminished sounds bilaterally. No rales, rhonchi, wheezing or retractions HEART: Regular rhythm. Normal S1/S2. Grade 3 systolic murmur heard best at left upper sternal border. No gallops or rubs appreciated.??Pulses palpable and appropriate.??No peripheral edema. ABDOMEN:??Soft, non tender, not distended,??no masses or hepatosplenomegaly.??Bowel sounds normal. NEUROLOGIC: No focal findings. Cranial nerves grossly intact. Normal strength and tone EXTREMITIES: Full range of motion, no deformities?? Yosvany Hamilton MD - 12/21/2019 8:56 AM CDT [facility] [place] Progress Note - Pediatric Cardiology Service Date of Admission: 12/18/2019 Assessment & Plan Jude Merritt is a??19 year old??with history of hypoplastic left heart s/p palliation (modified Fontan), malrotation s/p [place] procedure, polysplenia??and GERD??presenting with 2 days of fever/chills, malaise and sore throat with known COVID 19 exposure. Work-up thus far unremarkable for cause of fever /pharyngitis, including strep, COVID, mono screening and RVP. Possible discharge pending adequate POintake, tolerating activity and good pain control. ?? ID # fever/pharyngitis - COVID 19 PCR negative x 1; still considered high risk and needs repeat 72hrs later - RVP negative 12/19 - negative CMV and EBV IgM levels; + IgG levels 12/19 - Rapid strep and strep PCR done 12/17 negative - Blood culture NGTD - CXR normal (12/17) - Mononucleosis screen negative 12/18 - alternating acetaminophen 500 mg Q6hr and ibuprofen 400 mg Q6hr to receive pain meds q3hr - appreciate ID recs ?? HEME # thrombocytopenia CBC is notable for platelets of 114 (12/17). ?? 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 Juarez ?? 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 Lines: PIV 7/3 DVT Prophylaxis: Low Risk/Ambulatory with no VTE prophylaxis indicated Villela Catheter: not present Code Status: Full Code Disposition Plan Expected discharge: 0 - 1 days, recommended to home once afebrile, maintains adequate PO intake and pain well controlled on oral pain regimen. Entered: Yosvany Hamilton MD 12/21/2019, 8:57 AM The patient's care was discussed with the Attending Physician, Dr. Fregoso. Yosvany Hamilton MD Pediatric Cardiology Service [facility] [place] Interval History No acute events overnight. Still reporting throat pain consistent throat pain, as well as chest and belly pain that comes and goes. Discussed with ID yesterday, who recommended RVP, EBV and CMV serologies. Additional history obtained yesterday includes pt has pet exposure to 1 cat, but no other animal exposures, recent travel or significant time spent outside in nature areas. Data reviewed today: I reviewed all medications, new labs and imaging results over the last 24 hours. Physical Exam Vital Signs: Temp: 98.5 ??F (36.9 ??C) Temp src: Oral BP: 124/70 Pulse: 72 Heart Rate: 80 Resp: (!) 34 SpO2: 92 % O2 Device: None (Room air) Weight: 145 lbs 15.11 oz GENERAL: Alert but sleepy in bed. Responds to questions. SKIN:??Warm, dry. No significant rash, abnormal pigmentation or lesions HEAD: Normocephalic EYES: Pupils equal, round. Normal conjunctivae. NOSE: Normal without discharge. MOUTH/THROAT:??Hyperemic oropharynx.??No oral lesions. NECK: Supple, no masses. No adenopathy. Tender/sore to palpation bilaterally. No asymmetry. LUNGS: Clear with diminished sounds bilaterally. No rales, rhonchi, wheezing or retractions HEART: Regular rhythm. Normal S1/S2. Grade 3 systolic murmur heard best at left upper sternal border. No gallops or rubs appreciated.??Pulses palpable and appropriate.??No peripheral edema. ABDOMEN:??Soft, non tender, not distended,??no masses or hepatosplenomegaly.??Bowel sounds normal. NEUROLOGIC: No focal findings. Cranial nerves grossly intact. Normal strength and tone EXTREMITIES: Full range of motion, no deformities?? Christel Gibson MD - 12/20/2019 12:06 PM CDT [facility] [place] Progress Note - Pediatric Cardiology Service Date of Admission: 12/18/2019 Assessment & Plan Jude Merritt is a 19 year old??with history of hypoplastic left heart s/p repair (modified Fontan),malrotation s/p [place] procedure, polysplenia??and GERD presenting with 2 days of fever/chills, malaise and sore throat with known COVID 19 exposure. Work-up thus far unremarkable for cause of fever/pharyngitis, including strep, COVID and [place] screening. ?? ID # fever/pharyngitis - COVID 19 PCR negative x 1; still considered high risk and needs repeat 72hrs later - Rapid strep and strep PCR done 12/17 negative - Blood culture NGTD - CXR normal (12/17) - Mononucleosis screen negative 12/18 - acetaminophen 500 mg Q8hr - ibuprofen 200 mg Q4hr - appreciate ID recs - will order strep culture, RVP, and CMV/EBV testing HEME # thrombocytopenia CBC is notable for platelets of 114 (12/17). He does not have a history of thrombocytopenia vs viral suppression ?? 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 Juarez ?? 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 Entered: Yosvany Hamilton MD 12/20/2019, 12:06 PM The patient's care was discussed with the Attending Physician, Dr. Gibson. Yosvany Hamilton MD Pediatric Cardiology Service [facility] Attending Attestation I, Christel Gibson MD, saw this patient and have reviewed this patient's history, examined the patientand reviewed relevant laboratory findings and diagnostic testing. I agree with the findings and recommendations as presented in this note. I have discussed the plan of care with the residents and nurse practitioner, nurse, and patient and family members who are present at the time of the visit. I havereviewed and edited this note. Christel Gibson M.D. Assitant Professor of Pediatrics Pediatric Cardiology [facility] Pediatric Cardiology Office [phone] Interval History Pt continues to report significant throat pain, 10/10. Able to take in some PO despite this. Headache is much improved, and only feels it with movement. Data reviewed today: I reviewed all medications, new labs and imaging results over the last 24 hours. Physical Exam Vital Signs: Temp: 98.9 ??F (37.2 ??C) Temp src: Oral BP: 118/69 Heart Rate: 58 Resp: 20 SpO2: 96 % O2 Device: None (Room air) Weight: 145 lbs 15.11 oz GENERAL: Alert but sleepy in bed. Responds to questions. SKIN: Warm, dry. No significant rash, abnormal pigmentation or lesions HEAD: Normocephalic EYES: Pupils equal, round. Extraocular muscles intact. Normal conjunctivae. NOSE: Normal without discharge. MOUTH/THROAT: Moderately injected pharynx. No oral lesions. NECK: Supple, no masses. No adenopathy. Tender/sore to palpation. LUNGS: Clear. No rales, rhonchi, wheezing or retractions HEART: Regular rhythm. Normal S1/S2. Grade 3 systolic murmur heard best at left upper sternal border. No gallops or rubs appreciated. 3+ pulses in upper and lower extremities. No peripheral edema. ABDOMEN: Soft, non tender, not distended, no masses or hepatosplenomegaly. Bowel sounds normal. NEUROLOGIC: No focal findings. Cranial nerves grossly intact. Normal strength and tone EXTREMITIES: Full range of motion, no deformities ?? Data CK 54 Patrizia Marino RN - 12/19/2019 3:40 AM CDT FYI page to Catarina Bah, overnight cross cover resident, that patient's HR dipping below 55 while sleeping. No other changes at this time, other VSS. Order changed, HR can be 50-120. Continue to monitor. documented in this encounter H&P Notes Christel Gibson MD - 12/19/2019 1:32 AM CDT [facility] [place] History and Physical Pediatric Cardiology Date of Admission: 12/18/2019 Assessment & Plan Jude Merritt is a 19 year old with history of hypoplastic left heart s/p repair (modified Fontan), malrotation s/p [place] procedure, polysplenia and GERD presenting with 2 days of fever/chills, malaise and sore throat. ID # fever His main concern seems to be his fever/chills and sore throat. His pharynx is very red and his tonsils are 2-3 with puss. His presentation is most concerning for tonsillitis/pharyngitis. Procal 0.09 and CRP 36, is consistent with a viral rather than bacterial etiology. Known COVID19 contact at work along with his other symptoms also make his presentation suspicious for COVID19. - acetaminophen 500 mg Q8hr PRN - ibuprofen 200 mg Q4hr PRN - consider monospot - consider repeat strep - COVID PCR pending - blood culture pending - CXR normal (12/17) - Rapid strep negative (12/17) HEME # thrombocytopenia CBC is notable for platelets of 114 (12/17). He does not have a history of thrombocytopenia. Could be explained by viral infection. 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 I agree with the findings and recommendations as presented in this note. I have discussed the plan of care with the residents and nurse practitioner, nurse, and patient and family members who are present at the time of the visit. I havereviewed and edited this note. Christel Gibson M.D. Assitant Professor of Pediatrics Pediatric Cardiology [facility] Pediatric Cardiology Office [phone] Chief Complaint Malaise Sore throat Fever/chills History of Present Illness Jude Merritt is a 19 year old male with a history of HLHS s/p repair who presents with 2 days of fever/chills, sore throat, cough, headache, muscle aches and known COVID exposure. On the morning of 12/16 Jude began having chills, diaphoresis, sore throat, headache, abdominal pain, and muscle aches. He also reports sharp pains in his legs, back and chest lasting from seconds to an hour. He says he has similar chest pain intermittently at baseline, and it does not seem to be happening more frequently since onset of new symptoms. One episode, on the left side of his chest lasted 1 hour. At home he has a temperature 101.4 which was responsive to ibuprofen. 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 No sick contacts at home. He has not had palpitations, rashes, vomiting, diarrhea, SOB or dyspnea on exertion, pain on inspiration or dysuria. He does not smoke. Past Medical History I have reviewed this patient's medical history and updated it with pertinent information if needed. Past Medical History: Diagnosis Date ??? 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 Congenital anomalies of spleen Polysplenia ??? Esophageal reflux ??? 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 Betzaida Negron this past winter for influenza B Past Surgical History I have reviewed this patient's surgical history and updated it with pertinent information if needed. Past Surgical History: Procedure Laterality Date ??? [...] Surgeon: Akash Graves MD; Location: [facility] OR Immunization History Immunization Status: up to date and documented Prior to Admission Medications Prior to Admission Medications Prescriptions Last Dose Informant Patient Reported? Taking? DIGOX 250 MCG tablet 12/18/2019 at 0800 No Yes Sig: TAKE ONE TABLET BY MOUTH ONE TIME DAILY Escitalopram Oxalate (LEXAPRO PO) Yes No Sig: Take 10 mg by mouth daily acetaminophen (TYLENOL) 500 MG tablet 12/18/2019 at 0800 Yes Yes Sig: Take 500 mg by mouth every 8 hours as needed for mild pain amoxicillin (AMOXIL) 500 MG capsule No No Sig: Take 4 capsules (2,000 mg) by mouth as needed (one hour prior to dental cleanings) furosemide (LASIX) 20 MG tablet 12/18/2019 at 0800 No Yes Sig: Take 1 tablet (20 mg) by mouth daily metoprolol succinate ER (TOPROL-XL) 25 MG 24 hr tablet 12/18/2019 at 0800 No Yes Sig: TAKE ONE TABLET BY MOUTH ONE TIME DAILY montelukast (SINGULAIR) 10 MG tablet 12/18/2019 at 0800 Yes Yes Sig: Take 10 mg by mouth At Bedtime omeprazole (PRILOSEC) [address] capsule 12/18/2019 at 0800 No Yes Sig: Take 1 capsule (20 mg) by mouth daily sildenafil (REVATIO) 20 MG tablet 12/18/2019 at 0800 No Yes Sig: Take 1 tablet (20 mg) by mouth three times daily for pulmonary hypertension. Never use with nitroglycerin, terazosin or doxazosin. spironolactone (ALDACTONE) 25 MG tablet 12/18/2019 at 0800 No Yes Sig: TAKE ONE TABLET BY MOUTH ONE TIME DAILY traZODone (DESYREL) 50 MG tablet Yes No Sig: Take 50 mg by mouth At Bedtime Facility-Administered Medications: None Allergies Allergies Allergen Reactions ??? Seasonal Allergies Itchy eyes, runny nose, hives when around tall grasses Social History I have updated and reviewed the following Social History Narrative: Pediatric History Patient Parents ??? Jaimie Merritt (Mother) ??? Bear Merritt (Father) Other Topics Concern ??? Not on file Social History Narrative ??? Not on file Lives with girlfriend and her dad. Mom- Jaimie Merritt, . Jude gave the team permission to talk with his mom about his medical history and current admission. Family History Family history reviewed with patient and is noncontributory. Review of Systems ROS: 10 point ROS neg other than the symptoms noted above in the HPI. Physical Exam Temp: 98.2 ??F (36.8 ??C) Temp src: Oral BP: 112/75 Pulse: 60 Heart Rate: 58 Resp: 22 SpO2: 97 % O2 Device: None (Room air) Vital Signs with Ranges Temp: [98.2 ??F (36.8 ??C)-98.7 ??F (37.1 ??C)] 98.2 ??F (36.8 ??C) Pulse: [60-80] 60 Heart Rate: [58-78] 58 Resp: [20-24] 22 BP: (98-120)/(64-80) 112/75 SpO2: [96 %-97 %] 97 % 145 lbs 15.11 oz GENERAL: Active, alert, in no acute distress. Appears well. SKIN: Warm, dry. No significant rash, abnormal pigmentation or lesions HEAD: Normocephalic EYES: Pupils equal, round. Extraocular muscles intact. Normal conjunctivae. NOSE: Normal without discharge. MOUTH/THROAT: Moderately injected pharynx, hypertrophic tonsils 2-3 with exudates bilaterally. No oral lesions. NECK: Supple, no masses. No adenopathy. Tender/sore to palpation. LUNGS: Clear. No rales, rhonchi, wheezing or retractions HEART: Regular rhythm. Normal S1/S2. Grade 3 systolic murmur heard best at left upper sternal boarder. No gallops or rubs appreciated. 3+ pulses in upper and lower extremities. No peripheral edema. ABDOMEN: Mild tenderness in left lower quadrant. Soft, not distended, no masses or hepatosplenomegaly. Bowel sounds normal. NEUROLOGIC: No focal findings. Cranial nerves grossly intact. Normal strength and tone EXTREMITIES: Full range of motion, no deformities Data Results for orders placed or performed during the hospital encounter of 12/18/19 (from the past 24 hour(s)) Group A Streptococcus PCR Throat Swab Specimen: Throat Result Value Ref Range Specimen Description Throat Strep Group A PCR Not Detected NDET^Not Detected Rapid strep group A screen POCT Result Value Ref Range Rapid Strep A Screen neg neg Internal QC OK Yes Comprehensive metabolic panel Result Value Ref Range Sodium 138 133 - 144 mmol/L Potassium 3.8 3.4 - 5.3 mmol/L Chloride 105 98 - 110 mmol/L Carbon Dioxide 26 20 - 32 mmol/L Anion Gap 7 3 - 14 mmol/L Glucose 77 70 - 99 mg/dL Urea Nitrogen 15 7 - 30 mg/dL Creatinine 0.96 0.50 - 1.00 mg/dL GFR Estimate >90 >60 mL/min/[1.73_m2] GFR Estimate If Black >90 >60 mL/min/[1.73_m2] Calcium 8.6 8.5 - 10.1 mg/dL Bilirubin Total 2.7 (H) 0.2 - 1.3 mg/dL Albumin 4.0 3.4 - 5.0 g/dL Protein Total 7.8 6.8 - 8.8 g/dL Alkaline Phosphatase 67 65 - 260 U/L ALT 23 0 - 50 U/L AST 27 0 - 35 U/L Lactic acid whole blood Result Value Ref Range Lactic Acid 0.6 (L) 0.7 - 2.0 mmol/L Nt probnp inpatient (BNP) Result Value Ref Range N-Terminal Pro BNP Inpatient 168 0 - 450 pg/mL CRP inflammation Result Value Ref Range CRP Inflammation 36.0 (H) 0.0 - 8.0 mg/L Procalcitonin Result Value Ref Range Procalcitonin 0.09 ng/ml CBC with platelets differential Result Value Ref Range WBC 10.7 4.0 - 11.0 10e9/L RBC Count 5.37 4.4 - 5.9 10e12/L Hemoglobin 15.8 13.3 - 17.7 g/dL Hematocrit 46.5 40.0 - 53.0 % MCV 87 78 - 100 fl MCH 29.4 26.5 - 33.0 pg MCHC 34.0 31.5 - 36.5 g/dL RDW 12.9 10.0 - 15.0 % Platelet Count 114 (L) 150 - 450 10e9/L Diff Method Automated Method % Neutrophils 70.8 % % Lymphocytes 18.0 % % Monocytes 10.7 % % Eosinophils 0.2 % % Basophils 0.1 % % Immature Granulocytes 0.2 % Nucleated RBCs 0 0 /100 Absolute Neutrophil 7.6 1.6 - 8.3 10e9/L Absolute Lymphocytes 1.9 0.8 - 5.3 10e9/L Absolute Monocytes 1.2 0.0 - 1.3 10e9/L Absolute Eosinophils 0.0 0.0 - 0.7 10e9/L Absolute Basophils 0.0 0.0 - 0.2 10e9/L Abs Immature Granulocytes 0.0 0 - 0.4 10e9/L Absolute Nucleated RBC 0.0 XR Chest Port 1 View Impression Impression: No focal airspace opacities. documented in this encounter Consult Notes Herberth Apodaca MD - 12/23/2019 2:08 PM CDTAssociated Order(s): DENTISTRY ADULT IP CONSULT Dental Service Consultation Jude Merritt Date of : 2000 Age: [age] year old Date of Admission: 12/18/2019 Reason for consult: I was asked by Amanda Blackwell MD to evaluate this patient for oral infection. Assessment and Plan: Assessment: [place] teeth are partially erupted with caries on the occlusal #17 and #32. The teeth are not cavitated. Pericoronitis #17, 32 with purulent discharge. Plan: 1.Recommend starting Chlorhexidine Gluconate oral rinse 0.12% two times per day, continue amoxicillin 500mg three times per day. 2.Patient is scheduled for a panoramic radiograph for definitive diagnosis at [facility] Adult dental clinic on 12/24/2019 at 11:30 am. Coordinated transport with hospital nursing staff and dental clinic staff. Chief Complaint: my wisdom teeth are infected History obtained from the patient and patient's mother History of Present Illness: This patient is a 19 year old male admitted to the hospital with fever/chills, malaise and sore throat. History of hypoplastic left heart s/p repair. Patient's mom reports history of wisdom teeth infections with no definitive treatment over the last two years. Past Medical History: See H&P Past Medical History: Diagnosis Date ??? 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 Congenital anomalies of spleen Polysplenia ??? Esophageal reflux ??? 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 [...] HC CIRCUMCISION SURGICAL NON-DEV >28 DAYS AGE 2005 ??? HEART CATH CHILD N/A 01/18/2016 Procedure: HEART CATH CHILD; Surgeon: Akash Graves MD; Location: [facility] Social History: Social History Tobacco Use ??? Smoking status: Never Smoker ??? Smokeless tobacco: Never Used ??? Tobacco comment: none at home Substance Use Topics ??? Alcohol use: No Family History: Family History Adopted: Yes Problem Relation Age of Onset ??? Unknown/Adopted Other child adopted from [place] at 10mo of age ??? Unknown/Adopted Other ??? Unknown/Adopted Other Immunizations: Immunization History Administered Date(s) Administered ??? Comvax (HIB/HepB) 10/16/2001, 11/27/2001 ? ? DTAP (<7y) 10/16/2001, 11/27/2001, 01/22/2002, 02/16/2003, 01/03/2005 ??? HepB 02/22/2003 ??? Influenza (H1N1) 04/11/2009, 06/15/2009 ??? Influenza (IIV3) PF 03/23/2002, 04/27/2002, 06/07/2005 ??? MMR 10/16/2001, 02/16/2003, 01/03/2005 ??? Pneumococcal (PCV 7) 10/16/2001, 11/27/2001, 01/22/2002 ??? Poliovirus, inactivated (IPV) 10/16/2001, 11/27/2001, 01/22/2002, 01/03/2005 ??? Varicella 10/16/2001, 12/16/2008 Allergies: Allergies Allergen Reactions ??? Seasonal Allergies Itchy eyes, runny nose, hives when around tall grasses Medications: Current Facility-Administered Medications Ordered in Epic Medication Dose Route Frequency Last Rate Last Dose ??? acetaminophen (TYLENOL) solution 500 mg 500 mg Oral Q6H 500 mg at 12/23/19 0305 ??? benzocaine 20% (HURRICAINE/TOPEX) 20 % spray 0.5-1 mL 1-2 spray Mouth/Throat Q3H PRN 0.5 mL at 12/22/19 1013 ??? benzocaine-menthol (CEPACOL) 15-3.6 MG lozenge 1 lozenge 1 lozenge Buccal Q1H PRN 1 lozenge at 12/19/19 1957 ??? digoxin (LANOXIN) tablet 250 mcg 250 mcg Oral Daily 250 mcg at 12/23/19 0850 ??? diphenhydrAMINE (BENADRYL) solution 25 mg 25 mg Oral Q6H PRN 25 mg at 12/23/19 0203 ??? furosemide (LASIX) tablet 20 mg 20 mg Oral Daily 20 mg at 12/23/19 0850 ??? ibuprofen (ADVIL/MOTRIN) suspension 400 mg 400 mg Oral Q6H 400 mg at 12/23/19 0613 ? ? magic mouthwash suspension (diphenhydramine, lidocaine, aluminum-magnesium & simethicone) 10mL Swish & Swallow Q6H PRN 10 mL at 12/19/19 1436 ??? metoprolol succinate ER (TOPROL-XL) 24 hr tablet 25 mg 25 mg Oral Daily 25 mg at 12/23/19 0850 ??? montelukast (SINGULAIR) tablet 10 mg 10 mg Oral QAM 10 mg at 12/23/19 0850 ??? omeprazole (priLOSEC) CR capsule 20 mg 20 mg Oral Daily 20 mg at 12/22/19 0845 ??? ondansetron (ZOFRAN) tablet 4 mg 4 mg Oral Q6H PRN 4 mg at 12/23/19 0048 ??? sildenafil (REVATIO) tablet 20 mg 20 mg Oral TID 20 mg at 12/23/19 1418 ??? sodium chloride 0.9% infusion 100 mL Intravenous Once ??? sodium chloride 0.9% infusion Intravenous Continuous 50 mL/hr at 12/23/19 0142 1,000 mL at 12/23/19 0142 ??? spironolactone (ALDACTONE) tablet 25 mg 25 mg Oral Daily 25 mg at 12/23/19 0851 No current [facility]-ordered outpatient medications on file. Review of Systems: The 10 point Review of Systems is negative other than noted in the HPI Physical Exam: Vitals were reviewed Temp: 98.4 ??F (36.9 ??C) Temp src: Oral BP: 127/84 Pulse: 66 Heart Rate: 62 Resp: 22 SpO2: 96 % O2 Device: None (Room air) Head and neck exam: No visible extraoral swelling or discoloration. No trismus. Inferior border of the mandible palpable and symmetrical billaterally. Tender to palpation. Intraoral exam: Pericoronitus #17, 32. #17 and #32 are partially erupted. Purulent discharge and odor from gingiva #17 and #32. Data: Radiographs pending visit to dental clinic for panoramic. The patient was discussed with: Delfin Apodaca DMD PGY1 Pager: [phone] Associated attestation - Delfin Redman DDS - 12/23/2019 6:04 PM CDT Attestation: I, Delfin Redman DDS, discussed the patient with the resident immediately after the consultation on December 23, 2019, and agree with the resident???s assessment and plan of care. I was immediately available to the patient should the need have arisen. [place] findings: The patient appears to have pericornitis on his mandibular 3rd molars. Antibiotics andCHX rinse should help to improve the condition of the pericoronal gingival tissues. The patient is scheduled to have a dental orthopantomogram in the Hospital Dental clinic December 23. After the pa norex, we will decide which 3rd molars require extraction and then make a referral to our Oral Maxillofacial Surgery Team. 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 He has remained hemodynamically stable through hospitalization with no further fevers but continues to have poor PO intake and significant pain. On exam, he has most significant focal pain over his mandibular 3rd molars, suggesting a dental infection as most likely source of constitutional symptoms and mouth pain. He had been planning for extraction but had not been done yet in the setting of COVID. He has tested negative by RVP, making diagnoses like enterovirus, adenovirus and mycoplasma much less likely. He also has documented immunity to both CMV and EBV, making these less likely causes. HSV possible but not typical-appearing lesions. Both his rapid strep and strep PCR were negative but there are other bacterial causes of pharyngitis, particularly in teenagers, which may be missed on dedicated molecular testing for GAS. Thus, I would re commend testing with a throat culture to look for other organisms such as Arcanobacterium and group C and G streps. Given the constellation of fevers and pleuritic chest pain, I also considered the possibility of Lemierre syndrome caused by Fusobacterium necrophorum. However, his CXR was clear and I would have expected more neck pain, ongoing fevers, and more ill appearance. Nevertheless, he has not had anaerobic blood cultures. Finally, I would also consider acute HIV in the Ddx for acute pharyngitis. In addition to typical causes for pharyngitis, also consider potential systemic diseases that could cause fevers. Of particular not this time of year would be tick-borne infections. Specifically anaplasma would fit the best, as it can cause thrombocytopenias. - Agree with dental consult and imaging to look for abscess - Additional swabs obtained for HSV due to history of cold sores and throat culture for non-GAS bacterial causes of pharyngitis such as Arcanobacterium haemolyticum - HIV combo added on - Anaplasma PCR send with new thrombocytopenia but lower suspicion based on lack of outdoor exposures. - Please collect additional set of blood cultures including anaerobic culture (ordered for you) - Ok to hold off on empiric antibiotics for now as clinically stable and no clear infectious source identified I spent 60 minutes bedside and on the inpatient unit today providing consultative care for this patient, >50% spent in counseling/coordination of care, and formulation of the treatment plan. Celi Rodriguez MD, PhD Pediatric Infectious Diseases Attending Pager: [phone] Reason for Consult Reason for consult: I was asked by Dr. Blackwell to evaluate this patient for flu-like illness and mouth pain without etiology. Primary Care Physician [facility] Chief Complaint Fevers, oral pain History is obtained from the patient History of Present Illness Jude Merritt is a 19 year old male who was admitted on 12/17 with fevers at home, pharyngitis, left-sided pleuritic chest pain, headaches and myalgias. He felt entirely well on 12/16. On the morning of 12/17 Jude woke up with a sore throat.. Through the day he developed headache, chest pain, myalgias and fevers up to 101.4 at home. Chest pain is worse with deep breathing. He was most concerned about the throat pain and fevers to came to the ED for evaluation. On initial exam, he was afebrile but had erythematous orophyrynx and exudates. CRP 36 and procal 0.09. Initially testing was negative including strep, RPP, EBV and CMV serologies and COVID. Blood cultures were collected and negative to date. Since admission, he has not had further fevers. His headaches come and go. His throat/mouth pain is about the same. It is limiting his ability to take PO. He is receiving acetaminphen, iburprofen and oxycodone. He has not had palpitations, rashes, vomiting, diarrhea, dyspnea, or dysuria. Social history and risk factors reviewed. 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 No sick contacts at home. Take amoxicillin prophylaxis with dental work but last exam ~ 6 months ago. No recreational drug use. Is not sexually active. Has history of cold sores. Past Medical History I have reviewed this patient's medical history and updated it with pertinent information if needed. Past Medical History: Diagnosis Date ??? 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 Congenital anomalies of spleen Polysplenia ??? Esophageal reflux ??? 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 Past Surgical History: Procedure Laterality Date ??? [...] Surgeon: Akash Graves MD; Location[facility] Immunization History Immunization Status: up to date and documented Prior to Admission Medications Prior to Admission Medications Prescriptions Last Dose Informant Patient Reported? Taking? DIGOX 250 MCG tablet 12/18/2019 at 0800 No Yes Sig: TAKE ONE TABLET BY MOUTH ONE TIME DAILY Escitalopram Oxalate (LEXAPRO PO) Yes No Sig: Take 10 mg by mouth daily acetaminophen (TYLENOL) 500 MG tablet 12/18/2019 at 0800 Yes Yes Sig: Take 500 mg by mouth every 8 hours as needed for mild pain amoxicillin (AMOXIL) 500 MG capsule No No Sig: Take 4 capsules (2,000 mg) by mouth as needed (one hour prior to dental cleanings) furosemide (LASIX) 20 MG tablet 12/18/2019 at 0800 No Yes Sig: Take 1 tablet (20 mg) by mouth daily metoprolol succinate ER (TOPROL-XL) 25 MG 24 hr tablet 12/18/2019 at 0800 No Yes Sig: TAKE ONE TABLET BY MOUTH ONE TIME DAILY montelukast (SINGULAIR) 10 MG tablet 12/18/2019 at 0800 Yes Yes Sig: Take 10 mg by mouth At Bedtime omeprazole (PRILOSEC) [address] capsule 12/18/2019 at 0800 No Yes Sig: Take 1 capsule (20 mg) by mouth daily sildenafil (REVATIO) 20 MG tablet 12/18/2019 at 0800 No Yes Sig: Take 1 tablet (20 mg) by mouth three times daily for pulmonary hypertension. Never use with nitroglycerin, terazosin or doxazosin. spironolactone (ALDACTONE) 25 MG tablet 12/18/2019 at 0800 No Yes Sig: TAKE ONE TABLET BY MOUTH ONE TIME DAILY traZODone (DESYREL) 50 MG tablet Yes No Sig: Take 50 mg by mouth At Bedtime Facility-Administered Medications: None Allergies Allergies Allergen Reactions ??? Seasonal Allergies Itchy eyes, runny nose, hives when around tall grasses Social History I have updated and reviewed the following Social History Narrative: Pediatric History Patient Parents ??? Jaimie Merritt (Mother) ??? RenéBera mcginnis (Father) Other Topics Concern ??? Not on file Social History Narrative 12/22/19: Born in [place] and lived there until about 10 months. Came to [facility] to [facility] for repair of cardiac disease and has been here ever since. Lives with girlfriend, girlfriend's fatherand his partner as it is closer to school. They have a cat but no bites or scratches and does not change litter. 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 No recreational drug use including IV drug use. Never sexually active. Spends most of his time at home or at work. No significant outdoor activities. Family History I have reviewed this patient's family history and updated it with pertinent information if needed. Family History Adopted: Yes Problem Relation Age of Onset ??? Unknown/Adopted Other child adopted from [place] at 10mo of age ??? Unknown/Adopted Other ??? Unknown/Adopted Other Review of Systems The 10 point Review of Systems is negative other than noted in the HPI or here. Physical Exam Temp: 98 ??F (36.7 ??C) Temp src: Oral BP: 132/88 Pulse: 66 Heart Rate: 67 Resp: 18 SpO2: 97 % O2 Device: None (Room air) Vital Signs with Ranges Temp: [97.9 ??F (36.6 ??C)-99 ??F (37.2 ??C)] 98 ??F (36.7 ??C) Pulse: [57-66] 66 Heart Rate: [63-74] 67 Resp: [16-22] 18 BP: (113-132)/(66-88) 132/88 SpO2: [94 %-97 %] 97 % 147 lbs 7.8 oz GENERAL: Active, alert, in no acute distress. SKIN: Clear. No significant rash, abnormal pigmentation or lesions HEAD: Normocephalic EYES: Pupils equal, round, reactive, Extraocular muscles intact. Normal conjunctivae. EARS: External ears normal. NOSE: Epistaxis in right nostril. MOUTH/THROAT: Frothy secretions in posterior oropharynx. There is a few mm white erosion on left soft palate. Partially erupted mandibular molars are both quite tender to palpation bilaterally. Tongue and anterior gingiva appear normal. Faint erythema over cheeks. NECK: Supple, no masses. Mildly tender at angle of the jaw on both sides. LYMPH NODES: No adenopathy LUNGS: Clear. No rales, rhonchi, wheezing or retractions HEART: Regular rhythm. Normal S1/S2. No murmurs. Normal pulses. Well-healed midline surgical scar. ABDOMEN: Soft, non-tender, not distended, no masses or hepatosplenomegaly. Bowel sounds normal. Well-healed chest tube scars and RUQ Scar. NEUROLOGIC: No focal findings. Cranial nerves grossly intact: DTR's normal. Normal strength and tone BACK: Spine is straight, no scoliosis. EXTREMITIES: Full range of motion, no deformities Data 12/22/2019 09:24 Sodium 139 Potassium 3.3 (L) Chloride 107 Carbon Dioxide 25 Urea Nitrogen 14 Creatinine 0.81 GFR Estimate >90 GFR Estimate If Black >90 Calcium 8.1 (L) 12/18/2019 22:03 Bilirubin Total 2.7 (H) Alkaline Phosphatase 67 ALT 23 AST 27 Ref. Range 12/18/2019 22:03 12/22/2019 09:24 CRP Inflammation Latest Ref Range: 0.0 - 8.0 mg/L 36.0 (H) 107.0 (H) 12/18/2019 22:03 12/22/2019 09:24 WBC 10.7 9.7 08/19/2019 10:25 12/18/2019 22:03 12/22/2019 09:24 Platelet Count 190 114 (L) 105 (L) Microbiology Blood 12/18/19 NGTD Rapid strep and strep PCR 12/18/19 negative CMV IgG positive and IgM negative EBV IgG positive and IgM negative RPP 12/20/19 negative Imaging 12/18/19 CXR No focal airspace opacities. documented in this encounter ED Notes Ruthy Caballero RN - 12/18/2019 11:39 PM CDT ED PEDS HANDOFF PATIENT NAME: Jude Merritt DATE OF : 2000 AGE: [age] year old S (Situation) ED Chief Complaint: Fever ED Final Diagnosis: Final diagnoses: None Isolation Precautions: Other: Special [id number] Suspected Infection: Not Applicable Superintendent Maintenance Needed?: No B (Background) Pertinent Past Medical History: Past Medical History: Diagnosis Date ??? 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 Congenital anomalies of spleen Polysplenia ??? Esophageal reflux ??? 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 Seasonal Allergies Itchy eyes, runny nose, hives when around tall grasses A (Assessment) Vital Signs: Vitals: 12/18/19 2052 12/18/19 2100 12/18/19 2200 12/18/19 2300 BP: 120/73 113/64 98/78 117/80 Pulse: 80 69 74 Resp: 20 21 24 20 Temp: 98.7 ??F (37.1 ??C) TempSrc: Tympanic SpO2: 97% 96% 97% 96% Weight: 67.6 kg (149 lb 0.5 oz) Current Pain Level: 0-10 Pain Scale: 0 Medication Administration: ED Medication Administration from 12/18/20192044 to 12/18/2019 2339 Date/Time Order Dose Route Action Action by 12/18/2019 2336 sodium chloride 0.9% infusion Intravenous Rate/Dose Verify Ruthy Caballero, RN 12/18/20192212 sodium chloride 0.9% infusion Intravenous New Bag Ruthy Caballero, RN Interventions: PIV: 20g Right Arm PIV Drains: NA Oxygen Needs: RA Respiratory Settings: O2 Device: None (Room air) Falls risk: No Skin Integrity: Intact Tasks Pending: Signed and Held Orders None R (Recommendations) Family Present: No Other Considerations: na Questions Please Call: Treatment Team: Attending Provider: Guille Cortes MD; Resident: Jose Meade MD; Registered Nurse: Ruthy Caballero RN Ready for Conference Call: Yes Ruthy Caballero RN - 12/18/2019 8:51 PM CDT Patient with heart history presents with 1 day of pharyngitis, fever, cough and fatigue. 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 Guille Cortes MD - 12/18/2019 8:45 PM CDT History Chief Complaint Patient presents with ??? 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 Symptoms began 2-3 days ago and worsened this morning.When patient awoke early this morning he had a fever to 101F. He took tylenol and went back to sleep. The next time he checked his temperature was around 8 hours later at which time his temperature was 101.4F. Endorses chills, weakness, malaise, dyspnea with exertion, mild headache, sore throat, nausea, diffuse abdominal pain and reducedappetite. He also endorses a brief sharp right-sided chest pain earlier today, although this is something that he has intermittently and does not seem to have had more frequently with onset of his acute symptoms. He denies emesis, pleuritic chest pain, rashes, diarrhea, joint pain or swelling. 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 No sick contacts at home. 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 He does endorse wearing appropriate PPE while working. PMHx: Past Medical History: Diagnosis Date ??? 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 Congenital anomalies of spleen Polysplenia ??? Esophageal reflux ??? 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 [...] MEDICATIONS were reviewed and are as follows: Current Facility-Administered Medications Medication ??? acetaminophen (TYLENOL) tablet 500 mg ??? digoxin (LANOXIN) tablet 250 mcg ??? furosemide (LASIX) tablet 20 mg ??? metoprolol succinate ER (TOPROL-XL) 24 hr tablet 25 mg ??? montelukast (SINGULAIR) tablet 10 mg ??? omeprazole (priLOSEC) CR capsule 20 mg ??? sildenafil (REVATIO) tablet 20 mg ??? sodium chloride 0.9% infusion ??? spironolactone (ALDACTONE) tablet 25 mg ??? traZODone (DESYREL) tablet 150 mg Not taking trazodone or escitalopram, per patient report. ALLERGIES: Seasonal allergies IMMUNIZATIONS: Up to date per [facility]. SOCIAL HISTORY: Jude lives with his girlfriend and her father, as well as his girlfriend's father's girlfriend (who is an EMT). He works as in . I have reviewed the Medications, Allergies, Past Medical and Surgical History, and Social History inthe [employer] system. Review of Systems Please see HPI for pertinent positives and negatives. All other systems reviewed and found to be negative. Physical Exam BP: 120/73 Pulse: 80 Heart Rate: 78 Temp: 98.7 ??F (37.1 ??C) Resp: 20 Height: 162.6 cm (5' 4) Weight: 67.6 kg (149 lb 0.5 oz) SpO2: 97 % Physical Exam Appearance: Alert and appropriate, well developed, moderately uncomfortable, diaphoretic, ill-appearing HEENT: Head: Normocephalic and atraumatic. Eyes: PERRL, EOM grossly intact, conjunctivae and scleraeclear. Ears: Tympanic membranes clear bilaterally, without inflammation or effusion. Nose: Nares clear with no active discharge. Mouth/Throat: No oral lesions, pharynx mildly injected with no significant tonsillar hypertrophy, exudates are noted on tonsils. Neck: Supple, no masses, no meningismus. Nontender anterior cervical lymphadenopathy bilaterally. Chest: Tenderness to palpation over right costal border in the region along the mid-clavicular line. Pulmonary: No increased work of breathing. Good air entry, clear to auscultation bilaterally, with no rales, rhonchi, or wheezing. Cardiovascular: Regular rate and rhythm, normal S1 and S2, 2/6 systolic murmur throughout precordium. Normal symmetric peripheral pulses and capillary refill ~3 seconds. Abdominal: Normal bowel sounds, soft, tender to palpation diffusely, although maximally over RLQ. Nondistended, with no masses and no hepatosplenomegaly. Neurologic: Alert and oriented, cranial nerves II-XII grossly intact, moving all extremities equallywith grossly normal coordination. Extremities/Back: No deformity, no CVA tenderness. No extremity edema Skin: No significant rashes, ecchymoses, or lacerations. Genitourinary: Normal male external genitalia, chele 5, with no masses, tenderness, or edema. Rectal: Deferred ED Course ED Course as of Dec 18 0506 Fri Dec 18, 2019 2139 EKG 12 lead Sat Dec 19, 2019 0500 Symptomatic COVID-19 Virus (Coronavirus) by PCR Procedures Results for orders placed or performed during the hospital encounter of 12/18/19 (from the past 24 hour(s)) Group A Streptococcus PCR Throat Swab Specimen: Throat Result Value Ref Range Specimen Description Throat Strep Group A PCR Not Detected NDET^Not Detected Rapid strep group A screen POCT Result Value Ref Range Rapid Strep A Screen neg neg Internal QC OK Yes Comprehensive metabolic panel Result Value Ref Range Sodium 138 133 - 144 mmol/L Potassium 3.8 3.4 - 5.3 mmol/L Chloride 105 98 - 110 mmol/L Carbon Dioxide 26 20 - 32 mmol/L Anion Gap 7 3 - 14 mmol/L Glucose 77 70 - 99 mg/dL Urea Nitrogen 15 7 - 30 mg/dL Creatinine 0.96 0.50 - 1.00 mg/dL GFR Estimate >90 >60 mL/min/[1.73_m2] GFR Estimate If Black >90 >60 mL/min/[1.73_m2] Calcium 8.6 8.5 - 10.1 mg/dL Bilirubin Total 2.7 (H) 0.2 - 1.3 mg/dL Albumin 4.0 3.4 - 5.0 g/dL Protein Total 7.8 6.8 - 8.8 g/dL Alkaline Phosphatase 67 65 - 260 U/L ALT 23 0 - 50 U/L AST 27 0 - 35 U/L Lactic acid whole blood Result Value Ref Range Lactic Acid 0.6 (L) 0.7 - 2.0 mmol/L Nt probnp inpatient (BNP) Result Value Ref Range N-Terminal Pro BNP Inpatient 168 0 - 450 pg/mL CRP inflammation Result Value Ref Range CRP Inflammation 36.0 (H) 0.0 - 8.0 mg/L Procalcitonin Result Value Ref Range Procalcitonin 0.09 ng/ml CBC with platelets differential Result Value Ref Range WBC 10.7 4.0 - 11.0 10e9/L RBC Count 5.37 4.4 - 5.9 10e12/L Hemoglobin 15.8 13.3 - 17.7 g/dL Hematocrit 46.5 40.0 - 53.0 % MCV 87 78 - 100 fl MCH 29.4 26.5 - 33.0 pg MCHC 34.0 31.5 - 36.5 g/dL RDW 12.9 10.0 - 15.0 % Platelet Count 114 (L) 150 - 450 10e9/L Diff Method Automated Method % Neutrophils 70.8 % % Lymphocytes 18.0 % % Monocytes 10.7 % % Eosinophils 0.2 % % Basophils 0.1 % % Immature Granulocytes 0.2 % Nucleated RBCs 0 0 /100 Absolute Neutrophil 7.6 1.6 - 8.3 10e9/L Absolute Lymphocytes 1.9 0.8 - 5.3 10e9/L Absolute Monocytes 1.2 0.0 - 1.3 10e9/L Absolute Eosinophils 0.0 0.0 - 0.7 10e9/L Absolute Basophils 0.0 0.0 - 0.2 10e9/L Abs Immature Granulocytes 0.0 0 - 0.4 10e9/L Absolute Nucleated RBC 0.0 Blood culture Specimen: Blood Right Arm Result Value Ref Range Specimen Description Blood Right Arm Special Requests Received in aerobic bottle only Culture Micro No growth after 4 hours XR Chest Port 1 View Impression Impression: No focal airspace opacities. Medications sodium chloride 0.9% infusion ( Intravenous ED Infusing on Admission/transfer 12/19/19 0046) acetaminophen (TYLENOL) tablet 500 mg (500 mg Oral Given 12/19/19 0129) digoxin (LANOXIN) tablet 250 mcg (has no administration in time range) furosemide (LASIX) tablet 20 mg (has no administration in time range) metoprolol succinate ER (TOPROL-XL) 24 hr tablet 25 mg (has no administration in time range) omeprazole (priLOSEC) CR capsule 20 mg (has no administration in time range) sildenafil (REVATIO) tablet 20 mg (has no administration in time range) spironolactone (ALDACTONE) tablet 25 mg (has no administration in time range) montelukast (SINGULAIR) tablet 10 mg (has no administration in time range) traZODone (DESYREL) tablet 150 mg (150 mg Oral Given 12/19/19 0206) Old chart from Epic reviewed. Patient was attended to immediately upon arrival and assessed for immediate life-threatening conditions. Rapid strept and COVID swab obtained. Rapid strep returning negative. Additional workup including CMP, CBC/diff, CRP, procalcitonin, lactate, BNP, blood culture and chest XR obtained. EKG obtained and compared to most recent study (08/19/19) and noted to be largely unchanged. Workup significant for elevated CRP, hyperbilirubinemia, thrombocytopenia. Patient started on maintenance IV fluids. Patient reassessed and less diaphoretic, though still uncomfortable and endorsing weakness and general malaise. Case and recommendation for admission discussed with pediatric cardiology, who were amenable. Patient was admitted to pediatric cardiology service. Critical care time: none Assessments & Plan (with Medical Decision Making) I have reviewed the nursing notes. Patient with complex past medical history presenting with evaluation most concerning for a viral infection. Patient does have occupational exposure risk for COVID and is a more high-risk patient given his repaired critical congenital heart disease. Viral infection could be further supported by marrow suppression resulting in thrombocytopenia. There is lower suspicion for bacterial infection at this time with no focal signs on examination, negative CXR and normal procalcitonin. No evidence of heart failure with normal CXR and negative BNP. Patient's hyperbilirubinemia is more difficult to attribute to viral infection with normal transaminases and no evidence of hemolysis. On presentation patient was moderately ill-appearing and is at higher risk for acute decompensation with respiratory infection. This, accompanied by dehydration due to nausea and reduced PO intake requiring IV fluids, qualifies him for inpatient admission for continued monitoring and further workup as needed. I have reviewed the findings, diagnosis, plan and recommendation for admission with the patient. Patient will be admitted to the pediatric cardiology subspecialty service. Jose Meade MD PL-2, Pediatrics [facility] Pager: [phone] Current Discharge Medication List Final diagnoses: Viral illness 12/18/2019 [facility] EMERGENCY DEPARTMENT This data was collected with the resident physician working in the Emergency Department. I saw and evaluated the patient and repeated the [place] portions of the history and physical exam. The plan of carehas been discussed with the patient and family by me or by the resident under my supervision. I haveread and edited the entire note. MD Sophia Salgado Pablo Ureta, MD 12/19/192014 documented in this encounter Miscellaneous Notes Plan of Care - Lin Griffith RN - 12/28/2019 3:30 PM CDT Working with dental clinic and career development manager and orange team to coordinate dental surgery tomorrow. 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 Girlfriend's dad will pick him up after procedure. Acyclovir changed to oral from IV. IV saline locked. Plan of Care - Massiel Gonzales RN - 12/28/2019 6:57 AM CDT VSS. Afebrile. Denies pain. Patient awake most of night playing video games. Patient had good PO intake- fluids TKO'd. No family at bedside. Will continue to monitor and notify team of any changes. Plan of Care - Rajan rOta RN - 12/27/2019 11:29 PM CDT 3751-4691. Afebrile. VSS. Denies pain. Lung sounds clear. Good PO intake. No urine output or BM thisshift. PIV dressing reinforced. Walked 5 laps in hallway. Will continue to monitor and notify team of changes. Plan of Care - Tylor Altman RN - 12/27/2019 6:17 PM CDT AF. VSS. LSC. No pain. No nausea. Voiding well after extra lasix dose given in the AM. Stool x1. Eating minimally. Only drank 8oz of vitamin water, declining ordered boost after education. Up and walking the halls. Hourly rounding done. Continue POC. Plan of Care - Massiel Gonzales RN - 12/27/2019 6:23 AM CDT 6963-4760: VSS. Afebrile. Denies pain. No pain meds given. Patient drank 24 oz of vitamin water on eves. Good UOP. BM x1. Will continue to monitor and notify team of any changes. Plan of Care - Tammy Johansen RN - 12/26/2019 6:22 PM CDT 8251-1420: Jude was in good spirits, talking to girlfriend on phone and playing video games. Denied any pain. Fair PO intake. IVFs and IV antibiotics continued. Plan of Care - Dulce Oneill RN - 12/26/2019 2:56 PM CDT Afebrile. Pain 5-10/10. Encouraged pain medications. Ibu x1. Tyl x1. Fair PO intake. Extra lasix dose given x1. Updated mom on pt's clinical status via phone. Continuing to monitor. Plan of Care - Massiel Gonzales RN - 12/26/2019 6:40 AM CDT VSS. Afebrile. Patient denied pain overnight and declined pain meds. Patient HR in the low 40s whileasleep. MD notified. Patient up to bathroom x2. BM x1. No family at bedside. Will continue to monitor and notify team of any changes. Provider Notification - Massiel Gonzales RN - 12/26/2019 2:37 AM CDT 12/26/19 0200 Vitals Pulse (!) 42 Heart Rate/Source Monitor [facility] team notified of HRs in the low 40s, with occasional dips to 39. Patient asleep and well perfused. Will continue to monitor and notify team of any changes. Plan of Care - Violet Ren RN - 12/25/2019 11:33 PM CDT Bradycardic this evening while resting and playing on his phone to 42-43 HR. Self resolved to low 50s. Other VS stable. Not interested in eating. Attempted PO soft foods, only took bites of food. Has been slightly better at drinking this evening. Attempted a milkshake this evening, pt was only able tohave a few sips. Voiding. IV on full maintenance. No family present at this time. Plan of Care - Dulce Oneill RN - 12/25/2019 2:09 PM CDT Denying pain throughout shift. Ibu x2, Tyl x1. Pt taking sips of fluids. [facility] and back to room at 1000. Continuing continuous IVMFs. Social work consulted with mom and pt. Refusing food at this time. Continuing to monitor. Plan of Care - Elizabeth Pichardo RN - 12/25/2019 7:44 AM CDT VSS, afebrile, LS clear on RA. Pain rated 10/10 throughout night, slept between cares. PRN Toradol x1, PRN morphine x1. Denies difficulty swallowing or trouble breathing. Pt refused PO meds and PO intake. Good UOP, BM x1. Remains on IVF and IV antibiotics. No parent at bedside, mother called unit for update. Plan for dental visit and tooth extraction this morning on [place]. Plan of Care - Kaylynn Murillo RN - 12/24/2019 10:10 PM CDT Afebrile this shift, Patient c/o throat pain 10/10 but has been refusing Tyelnol/ Ibuprofen. Patienthas poor PO intake. Good UOP and 2-3 stools today. Patient is lethargic this shift. PIV infusing 100ml/hr. Potassium is 3.2, team is aware, patient unable to take any oral potassium. Patient will have a dental appt 12/25/19 possible extraction. Continue to monitor, family is not at bedside. Safety rounding completed. Continue to monitor per POC Plan of Care - Scarlet Huynh RN - 12/24/2019 5:24 PM CDT Transport arranged with [facility] coming to supervisor opening and picking patient at 0830 for dental/maxillofacial clinic appointment scheduled at 0900. Appointment at [facility] 7th floor. Plan of Care - Marizol Guerrero RN - 12/24/2019 4:01 PM CDT Jude seemed to be doing a little better this afternoon and a little less uncomfortable with talking and swallowing. He was talking much more than previously and up playing video games. He Still reportsa 10/10 for throat pain especially with swallowing. Very resistant to drink or swallow any PO other than a small amount of ice cream and water for meds. Had an Echo today and was able to go to his dental visit today. Once he came back we tried to get his supplemental potassium down but he was unable to do the powder form, he refused saying it was too awful, we then looked at giving the pill form but it was much too large for him to swallow and per pharmacy not ok to break in half. Pharmacy is going to send up the liquid form which Jude has agreed to try to take. Mom was here for rounds we will continue to monitor. Plan of Care - Chuyita Bella RN - 12/24/2019 5:54 AM CDT 9960-9133: Pt continues to have throat pain 10/10, difficulty swallowing (at times refusing po meds d/t pain), and c/o shocking in his back (not baseline per pt). Sternal chest pain x 1 hour (see MD notification), resolved now. Tmax 99.7 on evening shift (had not taken tylenol/ibuprofen from [id number]). Net negative 800 yesterday, urine concentrated, IVF at 100mL/hour. Pt did tolerate ice cream at 0100. Occasional brief O2 dips as low as 85% when sleeping, self resolve, otherwise sats 92-96% on RA. Plan to continue with antibiotics/acyclovir, monitor closely. Addendum: Throat pain 6/10 this am before 0600 tylenol, stating it still hurts, but is starting to feel better. Provider Notification - Chuyita Bella RN - 12/23/2019 11:[address] Catarina Bah notified pt c/o nausea and really bad chest pain (sternal) sudden onset. Pt had been feeling pretty well, was up to the bathroom, went back to bed, then 20 minutes later felt like he had to throw up and had chest pain/tightness when breathing. HR 63-72, BP 130s-140s/90s, sats mid 90s%on RA, rating pain 10/10. Zofran given followed by benadryl and tylenol. Episode lasted from 1608-3762. 12 lead EKG and troponin done. MD in to assess pt. Pt resting and feeling better by 0045. Plan of Care - Patrizia Marino RN - 12/23/2019 5:03 PM CDT [id number]: Tmax 99.4F. Frequent naps, rating throat and headache pain 10/10 when awake. Refusing to take ibuprofen/tylenol, MDs aware. Refusing other non-pharm pain management. Agreed warm water salinerinses x2. IV toradol x1 with no pain improvement. Intermittent desats to upper 80s while asleep in AM, see note. Chest xray x1. Oral lasix x1. Per mom, patient is more weak and lethargic today. Urine increasingly clear throughout shift. Plan for dental appointment tomorrow AM. Continue to monitor. Plan of Care - Chuyita Bella RN - 12/23/2019 6:31 AM CDT Pt continues to have head/teeth/throat pain 6-10/10, unsure if scheduled tylenol and ibuprofen help (meds switched to liquid d/t pills being too difficult to swallow) but pt did sleep between cares. Face (primarily cheeks) still swollen (R>L). CT overnight for difficulty swallowing. Stated back felt like it was being shocked a little since before CT, itchy rash noted on back after CT- improved with benadryl, zofran x1 for nausea after CT. IV at 50/hr, alicia urine, loose stools. Mom at bedside. Continue to monitor closely. Provider Notification - Chuyita Bella RN - 12/23/2019 1:[address] Catarina Bah notified pt stating he feels like his back is being shocked a little since sometime before his CT. Itchy rash noted on pt's back after CT. Benadryl given. Plan of Care - Joe Kaur RN - 12/22/2019 10:39 PM CDT Patient tolerated cares well throughout shift. VSS. Afebrile. Lung sounds are clear. Voiding well and stools recorded. Pt states that he is in too much pain to eat or drink. Rating pain 10/10 but no signs of discomfort. Pt not meeting intake goal of 200mL/4hrs so IV/PO titrate running at 50mL and tolerating well. No family present at bedside. Mom calls for updates. Will continue to monitor and update MD with changes. Plan of Care - Marizol Guerrero RN - 12/22/2019 2:49 PM CDT Pt continues to complain of throat pain and discomfort with swallowing, denies any trouble breathing. Encouraging throat spray and cold PO for comfort. Seems to help short term. Decreased PIV to encourage thirst. Seems to notice more discomfort in his wisdom teeth area this was a concern prior to covid-19. Mom called for updates and awaiting visit from dental team to held determine plan. Plan of Care - Tylor Stern RN - 12/22/2019 6:37 AM CDT AVSS. Lung sounds clear. C/o of pain in throat as 10/10. Oxy given 1x with poor results. Minimal fluid intake. Only jello to eat. Otherwise patient had no other concerns. Covid swab came back negative.No family present overnight. Continue to monitor. Plan of Care - Kaylynn Murillo RN - 12/21/2019 7:00 PM CDT Afebrile this shift, VSS, Patient c/o pain 10/10 throat pain uncontrolled with Tylenol and Ibu, doesnot want to do the Magic Mouthwash, Cepacol or the Throat spray. Poor PO intake. IVMF titrate down to 50ml hr, Intake goal is 200 over 4 hrs. Family not at bedside, Mom like to be called for rounds and has concerns about patient discharge. Team is aware. Saftey rounding completed. Continue to monitor per POC. Plan of Care - Nalini Lacey RN - 12/21/2019 2:57 PM CDT See provider notifications regarding increased RR and difficulty breathing. Stable on RA. BP's slightly elevated this shift. Consistent 10/10 throat pain with pain in back on inspiration and intermittent [place]. No interest in PO intake. Good UOP. MIVF running. Mom at the bedside for a couple hours this shift. Will continue to monitor and follow POC. Provider Notification - Nalini Lacey RN - 12/21/2019 11:57 AM CDT [facility] team resident notified of pt report of difficulty breathing. LS slightly diminished on L side. Pt sitting up in bed. O2 sat 93% on RA. MD to bedside to assess pt. Will continue to monitor and follow POC. Provider Notification - Nalini Lacey RN - 12/21/2019 7:55 AM CDT 12/21/19 0746 Vitals Resp (!) 34 Activity During Vital Signs Calm Oxygen Therapy SpO2 92 % O2 Device None (Room air) [facility] team resident notified of RR and lower SpO2 on RA. MD to bedside to assess. Plan of Care - Catarina Elam RN - 12/21/2019 5:17 AM CDT Patient AVSS overnight. Reporting 10/10 pain in throat, especially with swallowing and speaking. Scheduled pain meds given, PRN benzocaine spray and other interventions refused. O2 sats maintained on room air. [facility] cares. Mother would like to be called for rounds today. Plan of Care - Kaylynn Murillo RN - 12/20/2019 10:12 PM CDT Afebrile this shift, Scheduled tylenol and Ibuprofen given, patient c/o sore throat 10/10 pain, willnot use the Magic Mouthwash, Cepacol and throat spray. Patient had poor diet tonight, intake less than 25%. Good UOP and 2 BM this shift. Safety rounding completed. Family not at bedside. Continue to monitor per POC. Plan of Care - Nalini Lacey RN - 12/20/2019 2:43 PM CDT RR in 20's. Stable on RA. VSS. Continues to rate pain 10/10 in throat and intermittent headaches. Ptalso reports chest pain which he says has been intermittent since admission. Pt has been sleeping all day, waking for cares and then falling back to sleep. No interest in PO. Had one popsicle and ice cream. Good UOP. No family at bedside, mother updated via phone call. Awaiting CMV, EBV, and RVP results. Will continue to monitor and follow POC. Plan of Care - Catarina Elam RN - 12/20/2019 5:53 AM CDT Patient AVSS overnight. Reporting throat pain 10/10. Throat spray and scheduled medications administered, further interventions declined. NS bolus at start of shift. Patient slept between cares. HR in the mid 40s at times when in deep sleep, MD aware; patient warm, well perfused. No parent at bedside. Plan of Care - Iasbel Corea RN - 12/19/2019 10:42 PM CDT Tmax 99.6, RR 22, sating high 90's on RA. Pt rating headache 2-6/10 and sore throat consistently 10/10 without relief. Tylenol, ibuprofen, PRN benadryl, and throat lozenge given for pain control. No appetite, low PO intake, NS bolus given at start of shift. Pt is voiding, urine is alicia. IVMF continued at 100 ml/hr. Pt reports being dizzy while sitting/standing, instructed to call for assistance before getting out of bed. No hives observed this shift. Pt slept majority of shift but was easily aroused and cooperative. Trazodone held d/t benadryl administration. Pt's mom updated over the phone. Will continue to monitor. Provider Notification - Nalini Lacey RN - 12/19/2019 2:58 PM CDT [facility] team resident notified of photosensitivity and persistent 10/10 headache. Continue to monitor. Provider Notification - Nalini Lacey RN - 12/19/2019 2:16 PM CDT 12/19/19 1411 Oxygen Therapy SpO2 (!) 86 % O2 Device None (Room air) [facility] team notified of desat while asleep. O2 sats in high 90's awake. Team notified of low UOP anddark alicia color. Team also notified of persistent 10/10 headache. Plan of Care - Nalini Lacey RN - 12/19/2019 2:03 PM CDT Desat to 86% while asleep. Mid-90's while awake. Tmax 99.4. AOVSS. Consistently reporting 10/10 painin head and throat. Also reports photosensitivity. Team aware. Please see provider note regarding hives. Magic mouthwash x1. Scheduled ibuprofen and tylenol added. Tylenol x1. Benadryl x1. Lumarina is veryweak and has been sleeping for most of the day. Fair PO intake. Low UOP, alicia urine. Team aware. Bolus x1. MIVF running @ 100ml/hr. No stool. COVID negative. Mom present at bedside. Will continue to monitor and follow POC. Provider Notification - Nalini Lacey RN - 12/19/2019 2:02 PM CDT [facility] team resident notified of pt report of hives. Pt has one spot on R shoulder. Will continue tomonitor for spread. Plan of Care - Patrizia Marino RN - 12/19/2019 5:18 AM CDT Patient admitted to floor at 0100. Experiencing chills, afebrile. C/o intermittent sharp pain throughout body, including abdomen and throat. Tyl x1, ibuprofen x1. Cool feet with good pulses and cap refill on admission, warmer at 0400. Intermittent low HRs to 48, MDs aware. Intermittent dry cough. C/o hard to breathe at 0630, O2 sats WDL. Minimal PO intake, void x1. Continue to monitor. Pharmacy-Admission Medication History - Bhumi Hoff RPH - 12/18/2019 2:23 PM CDT Admission medication history interview status for the 12/18/2019 admission is complete. See [facility] admission navigator for allergy information, pharmacy, prior to admission medications and immunization status. Medication history interview sources: patient Changes made to [employer] medication list (reason) Added: none Deleted: escitalopram, trazodone prn Changed: none Additional medication history information (including reliability of information, actions taken by pharmacist): -Patient reports no longer taking escitalopram daily or trazodone at bedtime prn. Prior to Admission medications Medication Sig Last Dose Taking? Auth Provider acetaminophen (TYLENOL) 500 MG tablet Take 500 mg by mouth every 8 hours as needed for mild pain 12/18/2019 at 0800 Yes Unknown, Entered By History DIGOX 250 MCG tablet TAKE ONE TABLET BY MOUTH ONE TIME DAILY 12/18/2019 at 0800 Yes Cordell Juarez MD furosemide (LASIX) 20 MG tablet Take 1 tablet (20 mg) by mouth daily 12/18/2019 at 0800 Yes Cordell Juarez MD metoprolol succinate ER (TOPROL-XL) 25 MG 24 hr tablet TAKE ONE TABLET BY MOUTH ONE TIME DAILY 12/18/2019 at 0800 Yes Cordell Juarez MD montelukast (SINGULAIR) 10 MG tablet Take 10 mg by mouth At Bedtime 12/18/2019 at 0800 Yes Unknown, Entered By History omeprazole (PRILOSEC) [address] capsule Take 1 capsule (20 mg) by mouth daily 12/18/2019 at 0800 Yes Cordell Juarez MD sildenafil (REVATIO) 20 MG tablet Take 1 tablet (20 mg) by mouth three times daily for pulmonary hypertension. Never use with nitroglycerin, terazosin or doxazosin. 12/18/2019 at 0800 Yes Cordell Juarez MD spironolactone (ALDACTONE) 25 MG tablet TAKE ONE TABLET BY MOUTH ONE TIME DAILY 12/18/2019 at 0800 YesCordell Juarez MD amoxicillin (AMOXIL) 500 MG capsule Take 4 capsules (2,000 mg) by mouth as needed (one hour prior todental cleanings) Cordell Juarez MD Medication history completed by: Bhumi Hoff RPH documented in this encounter Plan of Treatment Upcoming Encounters Date Type Specialty Care Team Description 07/27/2022 Ancillary Procedure Cardiology Cordell Juarez MD [address] [address] (Wo rk) 07/27/2022 Office Visit Cardiology Cordell Juarez MD [id number] [place] [address] (Wo rk) Pending Results Name Type Priority Associated Diagnoses Date/Ti me Herpes Simplex Virus 1 and Lab Routine Viral illness 12/24/2019 8:00 AM CDT 2 IgG documented as of this encounter Procedures Procedure Name Priority Date/Time Associated Comments Diagnosis BASIC METABOLIC PANEL Timed 12/28/2019 5:58 AM Viral illness Results for this CDT procedure are i n the results section. CRP INFLAMMATION Routine 12/26/2019 7:18 AM Viral illness Resu lts for this CDT procedure are i n the results section. BASIC METABOLIC PANEL Timed 12/26/2019 7:18 AM Viral illness Results for this CDT procedure are i n the results section. POTASSIUM Routine 12/25/2019 8:33 AM Viral illness Results for this CDT procedure are i n the results section. ECHO PEDIATRIC Routine 12/24/2019 9:57 AM Results for this CONGENITAL CDT procedure are i n the results section. HERPES SIMPLEX VIRUS Routine 12/24/2019 8:00 AM Viral illness TYPE 1 AND 2 IGG CDT HERPES SIMPLEX VIRUS Routine 12/24/2019 6:15 AM Viral illness Results for this TYPE 1 AND 2 IGG CDT procedure a re in the results section. QUANTIFERON TB GOLD Routine 12/24/2019 6:15 AM Viral illness R esults for this PLUS CDT procedure are i n the results section. CRP INFLAMMATION Routine 12/24/2019 6:15 AM Viral illness Resu lts for this CDT procedure are i n the results section. BASIC METABOLIC PANEL Routine 12/24/2019 6:15 AM Viral illness Results for this CDT procedure are i n the results section. CBC WITH PLATELETS Routine 12/24/2019 6:15 AM Viral illness Re sults for this CDT procedure are i n the results section. TROPONIN I STAT 12/24/2019 12:49 Viral illness Results fo r this AM CDT procedure are i n the results section. EKG 12-LEAD, TRACING STAT 12/23/2019 11:49 Res ults for this ONLY PM CDT procedure are i n the results section. EKG 12 LEAD - Routine 12/23/2019 11:49 Results fo r this PEDIATRIC PM CDT procedure are i n the results section. XR CHEST PORT 1 VIEW Routine 12/23/2019 11:33 Res ults for this AM CDT procedure are i n the results section. BLOOD CULTURE Routine 12/23/2019 7:05 AM Viral illness Results for this CDT procedure are i n the results section. BLOOD CULTURE Routine 12/23/2019 1:40 AM Viral illness Results for this CDT procedure are i n the results section. CT SOFT TISSUE NECK W Routine 12/23/2019 12:22 Re sults for this CONTRAST AM CDT procedure are i n the results section. HERPES SIMPLEX VIRUS Routine 12/22/2019 2:00 PM Viral illness Results for this 1&2 PCR CDT procedure are i n the results section. THROAT CULTURE AEROBIC Routine 12/22/2019 2:00 PM Viral illnes s Results for this BACTERIAL CDT procedure are i n the results section. HIV ANTIGEN ANTIBODY Routine 12/22/2019 9:24 AM Viral illness Results for this COMBO CDT procedure are i n the results section. EHRLICHIA ANAPLASMA SP Routine 12/22/2019 9:24 AM Viral illnes s Results for this BY PCR CDT procedure are i n the results section. CBC WITH PLATELETS & Routine 12/22/2019 9:24 AM Viral illness Results for this DIFFERENTIAL CDT procedure are i n the results section. TROPONIN I Routine 12/22/2019 9:24 AM Viral illness Results for this CDT procedure are i n the results section. NT PROBNP INPATIENT Routine 12/22/2019 9:24 AM Viral illness R esults for this CDT procedure are i n the results section. CRP INFLAMMATION Routine 12/22/2019 9:24 AM Viral illness Resu lts for this CDT procedure are i n the results section. BASIC METABOLIC PANEL Routine 12/22/2019 9:24 AM Viral illness Results for this CDT procedure are i n the results section. SARS-COV-2 (COVID-19) Routine 12/21/2019 11:50 Viral illness R esults for this VIRUS RT-PCR PM CDT procedure are i n the results section. COVID-19 VIRUS Routine 12/21/2019 11:50 Viral illness Results for this (CORONAVIRUS) BY PCR PM CDT procedu re are in the results section. RESPIRATORY PANEL PCR Routine 12/20/2019 12:00 Viral illness R esults for this PM CDT procedure are i n the results section. EBV CAPSID ANTIBODY Routine 12/20/2019 11:32 Viral illness Res ults for this IGM AM CDT procedure are i n the results section. EBV CAPSID ANTIBODY Routine 12/20/2019 11:32 Viral illness Res ults for this IGG AM CDT procedure are i n the results section. CMV ANTIBODY IGM Routine 12/20/2019 11:32 Viral illness Result s for this AM CDT procedure are i n the results section. CMV ANTIBODY IGG Routine 12/20/2019 11:32 Viral illness Result s for this AM CDT procedure are i n the results section. CK TOTAL Routine 12/20/2019 8:49 AM Viral illness Results for this CDT procedure are i n the results section. MONONUCLEOSIS SCREEN Timed 12/19/2019 10:49 Viral illness Re sults for this AM CDT procedure are i n the results section. XR CHEST PORT 1 VIEW STAT 12/18/2019 10:31 Res ults for this PM CDT procedure are i n the results section. PROCALCITONIN STAT 12/18/2019 10:03 Results fo r this PM CDT procedure are i n the results section. CBC WITH PLATELETS & STAT 12/18/2019 10:03 Res ults for this DIFFERENTIAL PM CDT procedure are i n the results section. NT PROBNP INPATIENT STAT 12/18/2019 10:03 Resu lts for this PM CDT procedure are i n the results section. LACTIC ACID WHOLE STAT 12/18/2019 10:03 Result s for this BLOOD PM CDT procedure are i n the results section. CRP INFLAMMATION STAT 12/18/2019 10:03 Results for this PM CDT procedure are i n the results section. COMPREHENSIVE STAT 12/18/2019 10:03 Results fo r this METABOLIC PANEL PM CDT procedure ar e in the results section. BLOOD CULTURE STAT 12/18/2019 10:03 Viral illness Results f or this PM CDT procedure are i n the results section. RAPID STREP GROUP A STAT 12/18/2019 9:51 PM Re sults for this SCREEN POCT CDT procedure are i n the results section. COVID-19 VIRUS STAT 12/18/2019 9:43 PM Viral illness Result s for this (CORONAVIRUS) BY PCR CDT procedu re are in the results section. GROUP A STREPTOCOCCUS STAT 12/18/2019 9:43 PM Results for this PCR THROAT SWAB CDT procedure ar e in the results section. documented in this encounter Results Basic metabolic panel (12/28/2019 5:58 AM CDT) P athologist Signature Sodium 139 133 - 144 12/28/2019 [facility] [place] mmol/L 6:09 AM T [facility] Potassium 3.4 3.4 - 5.3 12/28/2019 [facility] [place] mmol/L 6:09 AM T [facility] Chloride 106 98 - 110 12/28/2019 [facility] [place] mmol/L 6:09 AM T [facility] Carbon Dioxide 26 20 - 32 12/28/2019 [facility] mmol/L 6:14 AM T [facility] Anion Gap 7 3 - 14 12/28/2019 [facility] mmol/L 6:14 AM T [facility] Glucose 93 70 - 99 12/28/2019 [facility] mg/dL 6:14 AM T [facility] Urea Nitrogen 11 7 - 30 12/28/2019 [facility] mg/dL 6:14 AM [facility] Creatinine 0.83 0.50 - 12/28/2019 [place] 1.00 mg/dL 6:14 AM [facility] GFR Estimate >90 >60 12/28/2019 [place] mL/min/{1. 6:14 AM [facility] 73_m2} HOSPITAL Comment: Non GFR Calc Starting 06/03/2018, serum creatinine ba sed estimated GFR (eGFR) will be calculated using the Chronic Kidney Dise [facility] Epidemiology Collaboration (CKD-EPI) equation. GFR Estimate If >90 >60 mL/min/{1.73_m2} 12/28/2019 6: 14 AM [facility] Comment: GFR Calc Starting 06/03/2018, serum creatinine ba sed estimated GFR (eGFR) will be calculated using the Chronic Kidney Dise [facility] Epidemiology Collaboration (CKD-EPI) equation. Calcium 8.6 8.5 - 10.1 mg/dL 12/28/2019 6:14 AM [facility] Specimen Anatomical Collection Method Collection Time Receive d Time (Source) Location / / Volume Laterality Blood specimen 12/28/2019 5:58 AM 020 5:59 (specimen) CDT AM CDT Amanda Blackwell MD LAB - BLOOD ORDERABLES Performing Organization Address City/State/ZIP Code Phon e Number M [facility] [address] [place] [address] [phone] HOSPITAL U OF M [facility] [address] [place] [address], U [phone] (ABNORMAL) Basic metabolic panel (12/26/2019 7:18 AM CDT) P athologist Signature Sodium 141 133 - 144 12/26/2019 U OF M mmol/L 7:36 AM CDT [facility] Potassium 3.3 (L) 3.4 - 5.3 12/26/2019 [facility] OF M mmol/L 7:36 AM T [facility] Chloride 110 98 - 110 12/26/2019 U OF M mmol/L 7:36 AM T [facility] Carbon Dioxide 27 20 - 32 12/26/2019 U OF M mmol/L 7:42 AM [facility] Anion Gap 4 3 - 14 12/26/2019 [facility] OF M mmol/L 7:42 AM [facility] Glucose 92 70 - 99 12/26/2019 [facility] M mg/dL 7:42 AM [facility] Urea Nitrogen 8 7 - 30 12/26/2019 U OF M mg/dL 7:42 AM [facility] Creatinine 0.95 0.50 - 12/26/2019 U OF M 1.00 mg/dL 7:42 AM [facility] GFR Estimate >90 >60 12/26/2019 U OF M mL/min/{1. 7:42 AM [facility] 73_m2} [facility] Comment: Non GFR Calc Starting 06/03/2018, serum creatinine ba sed estimated GFR (eGFR) will be calculated using the Chronic Kidney Dise [facility] Epidemiology Collaboration (CKD-EPI) equation. GFR Estimate If >90 >60 mL/min/{1.73_m2} 12/26/2019 7: 42 AM U OF [facility] Black [facility] Comment: GFR Calc Starting 06/03/2018, serum creatinine ba sed estimated GFR (eGFR) will be calculated using the Chronic Kidney Dise [facility] Epidemiology Collaboration (CKD-EPI) equation. Calcium 8.3 (L) 8.5 - 10.1 mg/dL 12/26/2019 7:42 AM CDT U OF [facility] Specimen Anatomical Collection Method Collection Time Receive d Time (Source) Location / / Volume Laterality Blood specimen 12/26/2019 7:18 AM 020 7:19 (specimen) CDT AM CDT Amanda Blackwell MD LAB - BLOOD ORDERABLES Performing Organization Address City/State/ZIP Code Phon e Number U OF [facility] U OF [facility] (ABNORMAL) CRP inflammation (12/26/2019 7:18 AM CDT) [facility] gist Method Time Signature CRP Inflammation 13.3 (H) 0.0 - 8.0 12/26/2019 U OF M mg/L 7:42 AM T [facility] Specimen Anatomical Collection Method Collection Time Receive d Time (Source) Location / / Volume Laterality Blood specimen 12/26/2019 7:18 AM 020 7:19 (specimen) CDT AM CDT Yosvany Hamilton MD LAB - BLOOD ORDERABLES Performing Organization Address City/State/ZIP Code Phon e Number U OF [facility] U OF [facility] Potassium (12/25/2019 8:33 AM CDT) athologist Signature Potassium 3.5 3.4 - 5.3 12/25/2019 U OF [facility] mmol/L 8:55 AM CDT [facility] Specimen Anatomical Collection Method Collection Time Receive d Time (Source) Location / / Volume Laterality Blood specimen 12/25/2019 8:33 AM 020 8:34 (specimen) CDT AM CDT Yosvany Hamilton MD LAB - BLOOD ORDERABLES Performing Organization Address City/State/ZIP Code Phon e Number U OF [facility] U OF [facility] ECHO PEDIATRIC CONGENITAL (12/24/2019 9:57 AM CDT) Anatomical Region Laterality Modality Echocardiography Specimen (Source) Anatomical Collection Method Collection Time Re ceived Time Location / / Volume Laterality 12/24/2019 9:36 AM CDT Narrative 12/24/2019 11:01 AM CDT [id number]^ALFONSO^YOSVANY ? Study ID: [id number] ?[facility] ?[facility] ?[address] ?[place] [address] ? Pediatric Echocardiogram __ Name: RENÉJUDE Study Date: 12/24/2019 09:36 AM ?Patient Location: URU6 ?Age: 19 yrs : 2000 ?BP: 116/73 mmHg Gender: Male ? HR: 58 Patient Class: Inpatient ? Height: 64 in Ordering Provider: YOSVANY HAMILTON ? Weight: 147 lb ? 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 Previous device closur e of Fontan fenestration. The Fontan fenestration device is in goo d position. There is laminar phasic color flow in the Fortino shunt. The right ventricle has normal contractility. Upper mild tricuspid valve insufficiency . There is unobstructed flow in both branch pulmonary arteries. There is no d iastolic runoff in the abdominal aorta. No pericardial effusion. No significant change from last echocard iogram. __ Technical information: A complete two dimensional, [...] ventricular function is qualit atively mildly depressed. There is a large anterior [...] MMode/2D Measurements & Calculations LVMI(BSA): 26.1 grams/m2 ?LVMI(Height): 12.2 RWT(MM): 0.43 Doppler Measurements & Calculations MV E max dhruv: 118.0 cm/sec ? Ao V2 max: 107.6 cm/sec MV A max dhruv: 55.3 cm/sec ?Ao max P.6 mmHg MV E/A: 2.1 LV V1 max: 74.4 cm/sec ? TR max dhruv: 491.7 cm/sec LV V1 max P.2 mmHg ? TR max P.7 mmHg asc Ao max dhruv: 66.6 cm/sec ? desc Ao max dhruv: 101.7 cm/sec asc Ao max P.8 mmHg ? desc Ao max P.1 mmHg [place] Z-Scores (Measurements & Calculat ions) Measurement NameValue ? Z-ScorePredi ctedNormal Range IVSd(MM) ?0.63 cm ?? -2.2 ?? 0 .95 ? 0.67 - 1.23 LVIDd(MM) ? 3.1 cm ?-5.2 ?? 5 .0 ?4.2 - 5.7 LVIDs(MM) ? 1.8 cm ?-4.0 ?? 3 .2 ?2.5 - 3.9 LVPWd(MM) ? 0.66 cm ?? -1.9 ?? 0. 89 ? 0.65 - 1.13 LV mass(C)d(MM) 45.7 grams-6.3 ?? 158.3 ?107.4 - 233.4 FS(MM) ?40.9 % ?1.5 ?34.9 ? 28.6 - 42.6 Report approved by: Janee Stapleton 12/24/2019 11:01 AM Procedure Note Kofi Swan MD - 12/23 [id number]^ALFONSO^YOSVANY Study ID: [id number] 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 Previous device closur e of Fontan fenestration. The Fontan fenestration device is in goo d position. There is laminar phasic color flow in the Fortino shunt. The right ventricle has normal contractility. Upper mild tricuspid valve insufficiency . There is unobstructed flow in both branch pulmonary arteries. There is no d iastolic runoff in the abdominal aorta. No pericardial effusion. No significant change from last echocard iogram. __ Technical information: A complete two dimensional, [...] ventricular function is qualit atively mildly depressed. There is a large anterior [...] Measurements & Calculations LVMI(BSA): 26.1 grams/m2 LVMI(Height): 1 2.2 RWT(MM): 0.43 Doppler Measurements & Calculations MV E max dhruv: 118.0 cm/sec Ao V2 max: 10 7.6 cm/sec MV A max dhruv: 55.3 cm/sec Ao max P.6 mmHg MV E/A: 2.1 LV V1 max: 74.4 cm/sec TR max dhruv: 491.7 cm/sec LV V1 max P.2 mmHg TR max P.7 m mHg asc Ao max dhruv: 66.6 cm/sec desc Ao max dhruv: 101.7 cm/sec asc Ao max P.8 mmHg desc Ao max P.1 mmHg [place] Z-Scores (Measurements & Calculat ions) Measurement NameValue Z-ScorePredictedNo rmal Range IVSd(MM) 0.63 cm -2.2 0.95 0.67 - 1.23 LVIDd(MM) 3.1 cm -5.2 5.0 4.2 - 5.7 LVIDs(MM) 1.8 cm -4.0 3.2 2.5 - 3.9 LVPWd(MM) 0.66 cm -1.9 0.89 0.65 - 1.13 LV mass(C)d(MM) 45.7 grams-6.3 158.3 107 .4 - 233.4 FS(MM) 40.9 % 1.5 34.9 28.6 - 42.6 Report approved by: Janee Stapleton 12/24/2019 11:01 AM Yosvany Hamilton MD CV PEDS ECHO ORDERABLES CBC with platelets (12/24/2019 6:15 AM CDT) P athologist Signature WBC 6.4 4.0 - 11.0 12/24/2019 [facility] 10e9/L 6:41 AM CDT [facility] RBC Count 5.03 4.4 - 5.9 12/24/2019 [facility] 10e12/L 6:41 AM CDT [facility] Hemoglobin 14.3 13.3 - 12/24/2019 [facility] 17.7 g/dL 6:41 AM CDT [facility] Hematocrit 43.0 40.0 - 12/24/2019 [facility] 53.0 % 6:41 AM CDT [facility] MCV 86 78 - 100 12/24/2019 [facility] fl 6:41 AM CDT [facility] MCH 28.4 26.5 - 12/24/2019 [facility] 33.0 pg 6:41 AM CDT [facility] MCHC 33.3 31.5 - 12/24/2019 [facility] 36.5 g/dL 6:41 AM CDT [facility] RDW 12.5 10.0 - 12/24/2019 [facility] 15.0 % 6:41 AM CDT [facility] Platelet Count 161 150 - 450 12/24/2019 [facility] 10e9/L 7:18 AM CDT [facility] Specimen Anatomical Collection Method Collection Time Receive d Time (Source) Location / / Volume Laterality Blood specimen 12/24/2019 6:15 AM 020 6:16 (specimen) CDT AM CDT Celi Rodriguez MD LAB - BLOOD ORDERABLES Performing Organization Address City/[facility]/ZIP Code Phon e Number [facility] [address] [place] [address] [facility] Herpes Simplex Virus 1 and 2 IgG (12/24/2019 6:15 AM CDT) P athologist Signature Herpes Simplex 0.7 0.0 - 0.8 12/24/2019 INFECTIOUS Virus Type 1 AI 1:05 PM CDT DISEASES IgG [facility] Comment: No HSV-1 IgG antibodies detected. Antibody index (AI) values reflect quali tative changes in antibody concentration that cannot be directly as sociated with clinical condition or disease state. Herpes Simplex <0.2 0.0 - 0.8 AI 12/24/2019 1:05 PM CDT INFECTIOUS DISEASES Virus Type 2 IgG [facility] Comment: No HSV-2 IgG antibodies detected. Antibody index (AI) values reflect quali tative changes in antibody concentration that cannot be directly as sociated with clinical condition or disease state. Specimen Anatomical Collection Method Collection Time Receive d Time (Source) Location / / Volume Laterality Blood specimen 12/24/2019 6:15 AM 020 6:16 (specimen) CDT AM CDT Amanda Blackwell MD LAB - BLOOD ORDERABLES Performing Organization Address City/State/ZIP Code Phon e Number INFECTIOUS DISEASES [address] [place] [address] DIAGNOSTIC LABORATORY, [facility] INFECTIOUS DISEASES [address] [place] [address], A DI[facility]STIC LAB[facility]ATORY (ABNORMAL) CRP inflammation (12/24/2019 6:15 AM CDT) Patholo gist Method Time Signature CRP Inflammation 48.3 (H) 0.0 - 8.0 12/24/2019 U OF M mg/L 7:15 AM CDT [facility] Specimen Anatomical Collection Method Collection Time Receive d Time (Source) Location / / Volume Laterality Blood specimen 12/24/2019 6:15 AM 020 6:16 (specimen) CDT AM CDT Celi Rodriguez MD LAB - BLOOD ORDERABLES Performing Organization Address City/State/ZIP Code Phon e Number [place] [facility] U OF M [facility] (ABNORMAL) Basic metabolic panel (12/24/2019 6:15 AM CDT) P athologist Signature Sodium 140 133 - 144 12/24/2019 U OF M mmol/L 7:10 AM [facility] Potassium 3.2 (L) 3.4 - 5.3 12/24/2019 [facility] M mmol/L 7:10 AM [facility] Chloride 108 98 - 110 12/24/2019 [facility] M mmol/L 7:10 AM [facility] Carbon Dioxide 27 20 - 32 12/24/2019 [facility] M mmol/L 7:15 AM [facility] Anion Gap 5 3 - 14 12/24/2019 [facility] M mmol/L 7:15 AM [facility] Glucose 117 (H) 70 - 99 12/24/2019 [facility] M mg/dL 7:15 AM [facility] Urea Nitrogen 11 7 - 30 12/24/2019 [facility] M mg/dL 7:15 AM [facility] Creatinine 0.82 0.50 - 12/24/2019 U OF M 1.00 mg/dL 7:15 AM [facility] GFR Estimate >90 >60 12/24/2019 U OF M mL/min/{1. 7:[address] [facility] 73_m2} [facility] Comment: Non GFR Calc Starting 06/03/2018, serum creatinine ba sed estimated GFR (eGFR) will be calculated using the Chronic Kidney Dise [facility] Epidemiology Collaboration (CKD-EPI) equation. GFR Estimate If >90 >60 mL/min/{1.73_m2} 12/24/2019 7: [address] [facility] Black [facility] Comment: GFR Calc Starting 06/03/2018, serum creatinine ba sed estimated GFR (eGFR) will be calculated using the Chronic Kidney Dise ase Epidemiology Collaboration (CKD-EPI) equation. Calcium 8.1 (L) 8.5 - 10.1 mg/dL 12/24/2019 7:15 AM CDT [facility] Specimen Anatomical Collection Method Collection Time Receive d Time (Source) Location / / Volume Laterality Blood specimen 12/24/2019 6:15 AM 020 6:16 (specimen) CDT AM CDT Celi Rodriguez MD LAB - BLOOD ORDERABLES Performing Organization Address City/[facility]/ZIP Code Phon e Number U [facility] Quantiferon TB Gold Plus (12/24/2019 6:15 AM CDT) Analysis Performed At Patho logist Time Signature Quantiferon-TB Negative NEG^Negati 12/25/2019 [facility]ITY Gold Plus ve 12:54 PM CDT [facility] Comment: No interferon gamma response to M.tuberc ulosis antigens was detected. Infection with M.tuberculosis is unlikel y, however a single negative result does not exclude infection. In patients at high risk for infection, a second test should be considered in accordance with the 2017 ATS/IDSA/CDC Clinical Practice Guidelines for Diagnosis of Tuberculosis in Adults and Children [Lewinsohn DM et al.Clin.Infect.Dis. 2017 64(2):111-115]. TB1 Ag minus Nil 0.06 IU/mL 12/25/2019 12:54 PM CDT [facility] TB2 Ag minus Nil 0.03 IU/mL 12/25/2019 12:54 PM CDT [facility] Mitogen minus Nil >10.00 IU/mL 12/25/2019 12:54 PM CD T [facility] Nil Result 0.10 IU/mL 12/25/2019 12:54 PM CDT [facility] Specimen Anatomical Collection Method Collection Time Receive d Time (Source) Location / / Volume Laterality Plasma specimen 12/24/2019 6:15 AM 2019 6:16 (specimen) CDT AM CDT Celi Rodriguez MD LAB - MICRO GENERAL ORDERABL ES Performing Organization Address City/State/ZIP Code Phon e Number [facility] [address] [place], [place] [id number] [place] [address] Troponin I (12/24/2019 12:49 AM CDT) athologist Signature Troponin I ES <0.015 0.000 - 12/24/[address] [facility] 0.045 ug/L 1:24 AM CDT [facility] Comment: The 99th percentile for upper reference range is 0.045 ug/L. ??Troponin values in the range of 0.045 - 0.120 ug/L may b e associated with risks of adverse clinical events. Specimen Anatomical Collection Method Collection Time Receive d Time (Source) Location / / Volume Laterality Blood specimen 12/24/2019 12:49 0 (specimen) AM CDT 12:50 AM CDT Catarina Moran MD LAB - BLOOD ORDERABLES Performing Organization Address City/State/ZIP Code Phon e Number U OF [facility] U OF M [facility] EKG 12 lead (12/23/2019 11:49 PM CDT) [facility] gist Method Time Signature Interpretation ECG Click View RADIOLOGY Image link RESULTS to view waveform and result Specimen (Source) Anatomical Collection Method Collection Time Re ceived Time Location / / Volume Laterality 12/23/2019 11:49 PM CDT Jose Meade MD ECG ORDERABLES Performing Organization Address City/[facility]/ZIP Code Phon e Number RADIOLOGY RESULTS EKG 12 lead - pediatric (12/23/2019 11:49 PM CDT) [facility] gist Method Time Signature Interpretation ECG Click View RADIOLOGY Image link RESULTS to view waveform and result Specimen (Source) Anatomical Collection Method Collection Time Re ceived Time Location / / Volume Laterality 12/23/2019 11:49 PM CDT Catarina Moran MD ECG ORDERABLES Performing Organization Address City/State/ZIP Code Phon e Number RADIOLOGY RESULTS XR Chest Port 1 View (12/23/2019 11:33 AM CDT) Anatomical Region Laterality Modality Chest Computed Radiography Specimen (Source) Anatomical Location Collection Method / Collectio n Time Received Time / Laterality Volume Impressions 12/23/2019 12:03 PM CDT Impression: Trace amount of pleural fluid. I have personally reviewed the examinati on and initial interpretation and I agree with the findings. ELINA CASTELLANOS MD Narrative 12/23/2019 12:03 PM CDT Exam: XR CHEST PORT 1 VW, 12/23/2019 11:43 AM Indication: Cardiac pt, assess for effus ion. Comparison: 12/18/2019, 06/25/2019. Findings: A single portable AP view of the chest w as obtained. 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 The cardiac silhouette is unchanged. Trace amount of pleural fluid. No focal airspace consolidation. Procedure Note Elina Castellanos MD - 12/23/2019Forma tting of this note might be different from the original. Exam: XR CHEST PORT 1 VW, 12/23/2019 11:43 AM Indication: Cardiac pt, assess for effus ion. Comparison: 12/18/2019, 06/25/2019. Findings: A single portable AP view of the chest w as obtained. 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 The cardiac silhouette is unchanged. Trace amount of pleural fluid. No focal airspace consolidation. Impression: Trace amount of pleural fluid. I have personally reviewed the examinati on and initial interpretation and I agree with the findings. ELINA CASTELLANOS MD Amanda Blackwell MD IMG DIAGNOSTIC IMAGING ORDER BHAVESH Blood culture (12/23/2019 7:05 AM CDT) [facility] Method Time Signature Specimen Blood Left INFECTIOUS Description Arm DISEASES DIAGNOSTIC LABORATORY Special Received in 12/23/2019 INFECTIOUS Requests anaerobic 9:04 AM CDT DISEASES bottle only DIAGNOSTIC LABORATORY Culture Micro No growth 12/29/2019 INFECTIOUS 4:14 AM CDT DISEASES DIAGNOSTIC LABORATORY Specimen Anatomical Collection Method Collection Time Receive d Time (Source) Location / / Volume Laterality Blood specimen 12/23/2019 7:05 AM 020 7:06 (specimen) CDT AM CDT Comment: Left Arm Christel Gibson MD LAB - MICRO GENERAL ORDERABL ES Performing Organization Address City/State/ZIP Code Phon e Number INFECTIOUS DISEASES [address] [place] [address] DIAGNOSTIC LABORATORY, [facility] INFECTIOUS DISEASES [address] [place] [address], [place] [facility] Blood culture (12/23/2019 1:40 AM CDT) [facility] Method Time Signature Specimen Blood Right INFECTIOUS Description Hand DISEASES DIAGNOSTIC LABORATORY Special Received in 12/23/2019 INFECTIOUS Requests aerobic 6:25 AM CDT DISEASES bottle only DIAGNOSTIC LABORATORY Culture Micro No growth 12/29/2019 INFECTIOUS 4:14 AM CDT DISEASES DIAGNOSTIC LABORATORY Specimen Anatomical Collection Method Collection Time Receive d Time (Source) Location / / Volume Laterality Blood specimen BLOOD SPECIMEN / 12/23/2019 1:40 AM 01/2020 2:02 (specimen) Unknown CDT AM CDT Comment: Right Hand Christel Gibson MD LAB - MICRO GENERAL ORDERABL ES Performing Organization Address City/State/ZIP Code Phon e Number INFECTIOUS DISEASES [address] [place] [address] DIAGNOSTIC LABORATORY, [facility] INFECTIOUS DISEASES [address] [place] [address], [place] DI[facility]STIC [facility]AT[facility] CT Soft Tissue Neck w Contrast (12/23/2019 12:22 AM CDT) Anatomical Region Laterality Modality Neck, SUBRAD CT NEURO, SUBRAD CT NEURO, UMP CT NEURO, Computed Tomography RAD CT Specimen (Source) Anatomical Location Collection Method / Collectio n Time Received Time / Laterality Volume Impressions 12/23/2019 8:09 AM CDT Impression: 1. No focal fluid collection or findings to suggest abscess in the deep neck spaces. Slightly enlarged bila teral palatine tonsils. No evidence of periapical abscess. 2. Prominent and enlarged left cervical lymph nodes, likely reactive in the setting of presumed dental infect ion. I have personally reviewed the examinati on and initial interpretation and I agree with the findings. ERIK CUMMINGS MD Narrative 12/23/2019 8:[address] SOFT TISSUE NECK W CONTRAST 12/23/2019 12:22 AM History: ??Abscess of pharynx; concern f or periapical abscess or deep space abscess of the neck ?? Comparison: ??None available Technique: Following intravenous adminis tration of nonionic iodinated contrast medium, thin section helical CT images were obtained from the skull base down to the level of the aort ic arch. ??Axial, coronal and sagittal reformations were performed wit h 2-3 mm slice thickness reconstruction. Images were reviewed in soft tissue, lung and bone windows. Contrast: 100ml's ISO 370 Findings: Evaluation of the mucosal space demonstr ates no evident abnormality in the nasopharynx, oropharynx, hypopharynx or the glottis. Bilateral palatine tonsils are slightly enlarged. The tongue base appears normal. The major salivary glands appear unremarkable. The thyroid gland appears normal. Enlarged left cervical lymph nodes, the most prominent of which is a level 2 node measuring 2.2 x 1.1 cm (ser ies 3, image 54).. The fascial spaces in the neck are intact bilaterall y. The major vascular structures in the neck appear unremarkab le. Evaluation of the osseous structures dem onstrate no worrisome lytic or sclerotic lesion. No overt spinal canal or neuroforaminal stenosis. The visualized paranasal sinuses are brian ar. The mastoid air cells are clear. The visualized lung apices are clear. Mild subcutaneous soft tissue edema with in the posterior neck. Procedure Note Erik Cummings MD - 12/23/2019Formatt ing of this note might be different from the original. CT SOFT TISSUE NECK W CONTRAST 12/23/2019 12:22 AM History: Abscess of pharynx; concern for periapical abscess or deep space abscess of the neck Comparison: None available Technique: Following intravenous adminis tration of nonionic iodinated contrast medium, thin section helical CT images were obtained from the skull base down to the level of the aort ic arch. Axial, coronal and sagittal reformations were performed wit h 2-3 mm slice thickness reconstruction. Images were reviewed in soft tissue, lung and bone windows. Contrast: 100ml's ISO 370 Findings: Evaluation of the mucosal space demonstr ates no evident abnormality in the nasopharynx, oropharynx, hypopharynx or the glottis. Bilateral palatine tonsils are slightly enlarged. The tongue base appears normal. The major salivary glands appear unremarkable. The thyroid gland appears normal. Enlarged left cervical lymph nodes, the most prominent of which is a level 2 node measuring 2.2 x 1.1 cm (ser ies 3, image 54).. The fascial spaces in the neck are intact bilaterall y. The major vascular structures in the neck appear unremarkab le. Evaluation of the osseous structures dem onstrate no worrisome lytic or sclerotic lesion. No overt spinal canal or neuroforaminal stenosis. The visualized paranasal sinuses are brian ar. The mastoid air cells are clear. The visualized lung apices are clear. Mild subcutaneous soft tissue edema with in the posterior neck. Impression: 1. No focal fluid collection or findings to suggest abscess in the deep neck spaces. Slightly enlarged bila teral palatine tonsils. No evidence of periapical abscess. 2. Prominent and enlarged left cervical lymph nodes, likely reactive in the setting of presumed dental infect ion. I have personally reviewed the examinati on and initial interpretation and I agree with the findings. ERIK CUMMINGS MD Yosvany Hamilton MD IMG CT ORDERABLES (ABNORMAL) HSV 1 and 2 DNA by PCR (12/22/2019 2:00 PM CDT) [facility] Method Time Signature HSV Specimen Oral 12/22/2019 [facility] 2:35 PM CDT [facility] HSV Type 1 Positive (A) NEG^Negat 12/23/2019 INFECTIOUS PCR colleen 2:38 PM CDT [facility] HSV Type 2 Negative NEG^Negat 12/23/2019 INFECTIOUS PCR colleen 2:38 PM CDT [facility] Comment: ??The qualitative Herpes simplex virus DNA assay is a real-time polymerase chain reaction (PCR) utilizing analyte s pecific reagents manufactured by [email or web address]. ??Analyte Specific Reagent s (ASRs) are used in many laboratory tests necessary for standard medical car e and generally do not require FDA approval. ??This test was developed and its perfo rmance characteristics determined by the [facility] [employer]. ??It has not been cleared or approved by the [place] Food and D rug Administration. Specimen Anatomical Collection Method Collection Time Receive d Time (Source) Location / / Volume Laterality Oral cavity 12/22/2019 2:00 PM 0 2:35 specimen CDT PM CDT (specimen) Celi Rodriguez MD LAB - MICRO GENERAL ORDERABL ES Performing Organization Address City/State/ZIP Code Phon e Number INFECTIOUS DISEASES [address] [place] [address] DIAGNOSTIC LABORATORY, [place] [id number] [place] [address] [place] [address] INFECTIOUS DISEASES [address] [place] [address], A [facility] Throat Culture Aerobic Bacterial (12/22/2019 2:00 PM CDT) [facility] Method Time Signature Specimen Throat INFECTIOUS Description [facility] Special Specimen 12/22/2019 INFECTIOUS Requests collected in 5:42 PM CDT [facility] DIAGNOSTIC transport LABORATORY (white cap) Culture Micro Heavy growth 12/24/2019 INFECTIOUS Normal rachel 9:35 AM CDT [facility] Specimen Anatomical Collection Method Collection Time Receive d Time (Source) Location / / Volume Laterality Specimen from 12/22/2019 2:00 PM 12/22/19 20 2:32 throat CDT PM CDT (specimen) Yosvany Hamilton MD LAB - MICRO GENERAL ORDERABL ES Performing Organization Address City/[facility]/ZIP Code Phon e Number INFECTIOUS DISEASES [address] [place] [address] DIAGNOSTIC LABORATORY, [facility] INFECTIOUS DISEASES [address] [place] [address], A [facility]IC LAB[facility]ATORY HIV Antigen Antibody Combo (12/22/2019 9:24 AM CDT) [facility] Method Time Signature HIV Antigen Nonreactive NR^Nonrea 12/23/2019 [facility] Antibody ctive 9:30 AM CDT [place] [facility] Comment: HIV-1 p24 Ag & HIV-1/HIV-2 Ab N ot Detected Specimen Anatomical Collection Method Collection Time Receive d Time (Source) Location / / Volume Laterality 12/22/2019 9:24 AM 0 9:25 CDT AM CDT Yosvany Hamilton MD LAB - BLOOD ORDERABLES Performing Organization Address City/State/ZIP Code Phon e Number [address] [address] [facility] Ehrlichia Anaplasma Sp by PCR (12/22/2019 9:24 AM CDT) Component Value Ref Test Analysis Performed At [facility] Range Method Time Signature Anaplasma Not Detected 12/26/2019 [facility] M phagocytophilum 9:57 AM CDT [facility] Ehrlichia Not Detected 12/26/2019 U OF M chaffeensis 9:57 AM CDT [facility] Ehrlichia Not Detected 12/26/2019 U OF M ewingii/canis 9:57 AM CDT [facility] Ehrlichia Not Detected 12/26/2019 [facility] M muris-like 9:57 AM CDT [facility] Comment: (Note) INTERPRETIVE INFORMATION: ??Ehrlichia an d Anaplasma Species by PCR ?? A negative result does not rule out the presence of PCR inhibitors in the patient specimen or te st-specific nucleic acid in concentrations below the level o f detection by this assay. Test developed and characteristics deter mined by [employer]. See Compliance Statement B : [employer]/CS Performed by [employer], [address] [facility] [place] [address] [email or web address], Dominik Ovalle MD, Lab. Director Specimen Anatomical Collection Method Collection Time Receive d Time (Source) Location / / Volume Laterality 12/22/2019 9:24 AM 0 9:25 CDT AM CDT Yosvany Hamilton MD LAB - BLOOD ORDERABLES Performing Organization Address City/State/ZIP Code Phon e Number [place] [facility] U OF M [facility] (ABNORMAL) Basic metabolic panel (12/22/2019 9:24 AM CDT) athologist Signature Sodium 139 133 - 144 12/22/2019 U OF M mmol/L 9:37 AM T [facility] Potassium 3.3 (L) 3.4 - 5.3 12/22/2019 [facility] M mmol/L 9:37 AM [facility] Chloride 107 98 - 110 12/22/2019 [facility] M mmol/L 9:37 AM [facility] Carbon Dioxide 25 20 - 32 12/22/2019 U OF M mmol/L 9:43 AM [facility] Anion Gap 7 3 - 14 12/22/2019 [facility] M mmol/L 9:43 AM [facility] Glucose 75 70 - 99 12/22/2019 U OF M mg/dL 9:43 AM [facility] Urea Nitrogen 14 7 - 30 12/22/2019 [facility] M mg/dL 9:43 AM [facility] Creatinine 0.81 0.50 - 12/22/2019 U OF M 1.00 mg/dL 9:43 AM [facility] GFR Estimate >90 >60 12/22/2019 U OF M mL/min/{1. 9:[address] [facility] 73_m2} [facility] Comment: Non GFR Calc Starting 06/03/2018, serum creatinine ba sed estimated GFR (eGFR) will be calculated using the Chronic Kidney Dise ase Epidemiology Collaboration (CKD-EPI) equation. GFR Estimate If >90 >60 mL/min/{1.73_m2} 12/22/2019 9: 43 AM U OF [facility] Black [facility] Comment: GFR Calc Starting 06/03/2018, serum creatinine ba sed estimated GFR (eGFR) will be calculated using the Chronic Kidney Dise ase Epidemiology Collaboration (CKD-EPI) equation. Calcium 8.1 (L) 8.5 - 10.1 mg/dL 12/22/2019 9:43 AM CDT U [facility] Specimen Anatomical Collection Method Collection Time Receive d Time (Source) Location / / Volume Laterality Blood specimen 12/22/2019 9:24 AM 020 9:25 (specimen) CDT AM CDT Yosvany Hamilton MD LAB - BLOOD ORDERABLES Performing Organization Address City/[facility] Phon e Number U OF [facility] U OF [facility] Nt probnp inpatient (12/22/2019 9:24 AM CDT) athologist Signature N-Terminal Pro 299 0 - 450 12/22/2019 [facility] BNP Inpatient pg/mL 9:46 AM T [facility] Comment: Reference range shown and results [...] Location / / Volume Laterality Blood specimen 12/22/2019 9:24 AM 020 9:25 (specimen) CDT AM CDT Yosvany Hamilton MD LAB - BLOOD ORDERABLES Performing Organization Address City/[facility] Phon e Number U [facility] U [facility] Troponin I (12/22/2019 9:24 AM CDT) athologist Signature Troponin I ES <0.015 0.000 - 12/22/[address] [facility] 0.045 ug/L 9:46 AM CDT [facility] Comment: The 99th percentile for upper reference range is 0.045 ug/L. ??Troponin values in the range of 0.045 - 0.120 ug/L may b e associated with risks of adverse clinical events. Specimen Anatomical Collection Method Collection Time Receive d Time (Source) Location / / Volume Laterality Blood specimen 12/22/2019 9:24 AM 020 9:25 (specimen) CDT AM CDT Yosvany Hamilton MD LAB - BLOOD ORDERABLES Performing Organization Address City/[facility]/ZIP Code Phon e Number U OF [facility] U [facility] (ABNORMAL) CRP inflammation (12/22/2019 9:24 AM CDT) [facility] Method Time Signature CRP Inflammation 107.0 (H) 0.0 - 8.0 12/22/2019 U OF M mg/L 9:45 AM CDT [facility] Specimen Anatomical Collection Method Collection Time Receive d Time (Source) Location / / Volume Laterality Blood specimen 12/22/2019 9:24 AM 020 9:25 (specimen) CDT AM CDT Yosvany Hamilton MD LAB - BLOOD ORDERABLES Performing Organization Address City/[facility]/ZIP Code Phon e Number U OF [facility] U [facility] (ABNORMAL) CBC with platelets differential (12/22/2019 9:24 AM CDT) [facility] Method Time Signature WBC 9.7 4.0 - 12/22/2019 [facility] 11.0 9:59 AM CDT [facility] 10e9/L [facility] RBC Count 4.88 4.4 - 5.9 12/22/2019 [facility] OF 10e12/L 9:59 AM CDT [facility] Hemoglobin 14.1 13.3 - 12/22/2019 [facility] 17.7 g/dL 9:59 AM CDT [facility] Hematocrit 42.7 40.0 - 12/22/2019 [place] [facility] 53.0 % 9:59 AM CDT [facility] MCV 88 78 - 100 12/22/2019 [place] [facility] fl 9:59 AM CDT [facility] MCH 28.9 26.5 - 12/22/2019 [facility] 33.0 pg 9:59 AM CDT [facility] MCHC 33.0 31.5 - 12/22/2019 [facility] 36.5 g/dL 9:59 AM CDT [facility] RDW 12.9 10.0 - 12/22/2019 [facility] 15.0 % 9:59 AM CDT [facility] Platelet Count 105 (L) 150 - 450 12/22/2019 [facility] 10e9/L 9:59 AM CDT [facility] Diff Method Automated 12/22/2019 [facility] Method 9:59 AM T [facility] % Neutrophils 75.4 % 12/22/2019 [facility] 9:59 AM T [facility] % Lymphocytes 9.2 % 12/22/2019 [facility] 9:59 AM T [facility] % Monocytes 13.1 % 12/22/2019 [facility] 9:59 AM T [facility] % Eosinophils 1.6 % 12/22/2019 [facility] 9:59 AM T [facility] % Basophils 0.3 % 12/22/2019 [facility] 9:59 AM T [facility] % Immature 0.4 % 12/22/2019 [facility] Granulocytes 9:59 AM T [facility] Nucleated RBCs 0 0 /100 12/22/2019 [facility] 9:59 AM [facility] Absolute 7.3 1.6 - 8.3 12/22/2019 [facility] Neutrophil 10e9/L 9:59 AM CDT [facility] Absolute 0.9 0.8 - 5.3 12/22/2019 [facility] Lymphocytes 10e9/L 9:59 AM CDT [facility] Absolute 1.3 0.0 - 1.3 12/22/2019 [facility] Monocytes 10e9/L 9:59 AM T [facility] Absolute 0.2 0.0 - 0.7 12/22/2019 [facility] Eosinophils 10e9/L 9:59 AM T [facility] Absolute 0.0 0.0 - 0.2 12/22/2019 [facility] Basophils 10e9/L 9:59 AM T [facility] Abs Immature 0.0 0 - 0.4 12/22/2019 [facility] Granulocytes 10e9/L 9:59 AM CDT [facility] Absolute 0.0 12/22/2019 [facility] Nucleated RBC 9:59 AM CDT [facility] Specimen Anatomical Collection Method Collection Time Receive d Time (Source) Location / / Volume Laterality Blood specimen 12/22/2019 9:24 AM 020 9:25 (specimen) CDT AM CDT Yosvany Hamilton MD LAB - BLOOD ORDERABLES Performing Organization Address City/State/ZIP Code Phon e Number [facility] [address] [place] [address] [facility] SARS-CoV-2 COVID-19 Virus (Coronavirus) RT-PCR Nasopharyngeal (12/21/2019 11:50 PM CDT) [facility] Method Time Signature SARS-CoV-2 Nasopharyngeal 12/22/2019 [facility] OF Virus 2:32 AM CDT [facility]AMP[facility] SARS-CoV-2 NEGATIVE 12/22/2019 [facility] PCR Result 2:32 AM CDT [facility] Comment: SARS-CoV2 (COVID-19) RNA not de tected, presumed negative. SARS-CoV-2 PCR Testing was performed using the Xpert Xpress SARS-CoV-2 Assay on the Nixon-Xpert 12/22/2019 2:32 AM [facility] [employer]. Addition al information about this Emergency Use Authorization (EUA) [facility] assay can be found via the Lab Guide. [facility] Comment: This test should be ordered for the dete ction of SARS-CoV-2 in individuals who meet SARS-CoV-2 clinical and/or epidemi ological criteria. Test performance is unknown in asymptomatic patients. This test is for in vitro diagnostic use under the FDA EUA for laboratories certified under CLIA to perform high com plexity testing. This test has not been FDA cleared or approved. A negative result does not rule out the presence of PCR inhibitors in the specimen or target RNA in concentration below the limit of detection for the assay. The possibility of a false negati ve should be considered if the patient's recent exposure or clinical pr esentation suggests COVID-19. This test was validated by the [facility] Infectious Diseases Diagnostic Laboratory. This laboratory i s certified under the Clinical Laboratory Improvement Amendments of 198 8 (CLIA-88) as qualified to perform high complexity laboratory testing. Specimen (Source) Anatomical Collection Method Collection Time Re ceived Time Location / / Volume Laterality Specimen from 12/21/2019 11:50 12/22/2019 nasopharyngeal PM CDT 12:11 AM CDT structure (specimen) Catarina Moran MD LAB - MICRO GENERAL ORDERABL ES Performing Organization Address City/[facility]/ZIP Code Phon e Number [facility] [address] [place] [address] [facility] Symptomatic COVID-19 Virus (Coronavirus) by PCR (12/21/2019 11:50 PM CDT) Component Value Ref Test Analysis Performed At [facility] Range Method Time Signature COVID-19 Nasopharyngeal 12/22/2019 [facility] Virus PCR to 12:11 AM [place] [facility] - CDT [facility] COVID-19 Test received-See 12/22/2019 INFECTIOUS Virus PCR to reflex to IDDL 1:22 AM CDT [facility] - test SARS CoV2 DIAGNOSTIC Result (COVID-19) Virus LABORATORY RT-PCR Specimen (Source) Anatomical Collection Method Collection Time Re ceived Time Location / / Volume Laterality Specimen from 12/21/2019 11:50 12/22/2019 nasopharyngeal PM CDT 12:11 AM CDT structure (specimen) Catarina Moran MD LAB - MICRO GENERAL ORDERABL ES Performing Organization Address City/[facility] Code Phon e Number INFECTIOUS DISEASES [address] [place] [address] DIAGNOSTIC LABORATORY, [address] [place] [address] INFECTIOUS DISEASES [address] [place] [address], A DIAGNOSTIC LABORATORY Respiratory Panel PCR - FINANCIAL RECORDING CLERK Swab (12/20/2019 12:00 PM CDT) [facility] Method Time Signature Adenovirus Not Detected NDET^Not 12/20/2019 INFECTIOUS Detected 6:38 PM CDT [facility] Coronavirus Not Detected NDET^Not 12/20/2019 INFECTIOUS Detected 6:38 PM CDT [facility] Comment: This test detects Coronavirus 229E, HKU1 , NL63, and OC43 but does not distinguish between them. It does not de tect MERS ( Respiratory Syndrome), SARS (Severe Acute Respirator y Syndrome) or 2019-nCoV (2019 Novel) Coronavirus. Human Metapneumovirus Not Detected NDET^Not 12/20/2019 6:38 INFECTIOUS Detected PM CDT [facility] Human Not Detected NDET^Not 12/20/2019 6:38 INFECTIOUS Rhinovirus/Enteroviru Detected PM CDT [facility] s [facility]IC LABORATORY Influenza A Not Detected NDET^Not 12/20/2019 6:38 INFECTIOU S Detected PM CDT [facility] Influenza A, H1 Not Detected NDET^Not 12/20/2019 6:38 INFEC TIOUS Detected PM CDT [facility] Influenza A 2009 H1N1 Not Detected NDET^Not 12/20/2019 6:38 INFECTIOUS Detected PM CDT [facility] Influenza A, H3 Not Detected NDET^Not 12/20/2019 6:38 INFEC TIOUS Detected PM CDT [facility] Influenza B Not Detected NDET^Not 12/20/2019 6:38 INFECTIOU S Detected PM CDT [facility] Parainfluenza Virus 1 Not Detected NDET^Not 12/20/2019 6:38 INFECTIOUS Detected PM CDT [facility] Parainfluenza Virus 2 Not Detected NDET^Not 12/20/2019 6:38 INFECTIOUS Detected PM CDT [facility] Parainfluenza Virus 3 Not Detected NDET^Not 12/20/2019 6:38 INFECTIOUS Detected PM CDT [facility] Parainfluenza Virus 4 Not Detected NDET^Not 12/20/2019 6:38 INFECTIOUS Detected PM CDT [facility] Respiratory Syncytial Not Detected NDET^Not 12/20/2019 6:38 INFECTIOUS Virus A Detected PM CDT [facility] Respiratory Syncytial Not Detected NDET^Not 12/20/2019 6:38 INFECTIOUS Virus B Detected PM CDT [facility] Chlamydia pneumoniae Not Detected NDET^Not 12/20/2019 6:38 INFECTIOUS Detected PM CDT [facility] Mycoplasma pneumoniae Not Detected NDET^Not 12/20/2019 6:38 INFECTIOUS Detected PM CDT [facility] Respiratory Virus See comment 12/20/2019 6:38 INFE CTIOUS Comment below PM CDT [facility] Comment: The ePlex Respiratory Viral Panel is a q ualitative nucleic acid, multiplex, in vitro diagnostic test for the simultane ous detection and identification of multiple respiratory viral and bacterial nucleic acids in nasopharyngeal swabs collected in viral transport media from individuals exhibiting signs and symptoms of respiratory infection. The test detects Adenovirus, Coronavirus , Human Metapneumovirus, Human Rhinovirus/Enterovirus, Influenza A (H1, H3, 2009 H1N1), Influenza B, Respiratory Syncytial Virus A, Respirato ry Syncytial Virus B, Parainfluenza Virus (1, 2, 3, 4), Chlamydia pneumoniae and Mycoplasma pneumoniae. The assay has received FDA approval for the testing of nasopharyngeal (FINANCIAL RECORDING CLERK) swabs only. This test has been verified and is performed by the Infectious Diseases Diagnostic Laboratory at [facility]. This test is used for clinical purposes and should not be rega rded as investigational or for research. This laboratory is certified under the C linical Laboratory Improvement Amendments of 1988 (CLIA-88) as qualifie d to perform high complexity clinical laboratory testing. Specimen (Source) Anatomical Collection Method Collection Time Re ceived Time Location / / Volume Laterality Nasopharyngeal swab 12/20/2019 12:00 07/10/2019 (specimen) PM CDT 12:35 PM CDT Yosvany Hamilton MD LAB - MICRO GENERAL ORDERABL ES Performing Organization Address City/State/ZIP Code Phon e Number INFECTIOUS DISEASES [address] [place] [address] DIAGNOSTIC LABORATORY, [facility] INFECTIOUS DISEASES [address] [place] [address], A DIAGNOSTIC LABORATORY CMV antibody IgM (12/20/2019 11:32 AM CDT) athologist Signature CMV Antibody <0.2 0.0 - 0.8 12/21/2019 INFECTIOUS IgM AI 11:19 AM CDT [facility] Comment: Negative Results from any one IgM assay should no t be used as a sole determinant of a current or recent infection. Because an IgM test can yield false positive results and low-level IgM antibody may p ersist for more than 12 months post infection, reliance on a single test res ult could be misleading. Acute infection is best diagnosed by dem onstrating the conversion of IgG from negative to positive. If an acute infect ion is suspected, consider obtaining a new specimen and submit for both IgG an d IgM testing in two or more weeks. Antibody index (AI) values reflect quali tative changes in antibody concentration that cannot be directly as sociated with clinical condition or disease state. Specimen Anatomical Collection Method Collection Time Receive d Time (Source) Location / / Volume Laterality Blood specimen 12/20/2019 11:32 0 (specimen) AM CDT 11:33 AM CDT Yosvany Hamilton MD LAB - BLOOD ORDERABLES Performing Organization Address City/[facility] Phon e Number INFECTIOUS DISEASES [address] [place] [address] DIAGNOSTIC LABORATORY, [facility] INFECTIOUS DISEASES [address] [place] [address], A DIAGNOSTIC LABORATORY (ABNORMAL) CMV Antibody IgG (12/20/2019 11:32 AM CDT) Analysis Performed At Patho logist Time Signature CMV Antibody >8.0 (H) 0.0 - 0.8 12/21/2019 INFECTIOUS IgG AI 11:19 AM CDT [facility] Comment: Positive Antibody index (AI) values reflect quali tative changes in antibody concentration that cannot be directly as sociated with clinical condition or disease state. Specimen Anatomical Collection Method Collection Time Receive d Time (Source) Location / / Volume Laterality Blood specimen 12/20/2019 11:32 0 (specimen) AM CDT 11:33 AM CDT Yosvany Hamilton MD LAB - BLOOD ORDERABLES Performing Organization Address [place] [facility] Phon e Number INFECTIOUS DISEASES [address] [place] [address] DIAGNOSTIC LABORATORY, [facility] INFECTIOUS DISEASES [address] [place] [address], A DIAGNOSTIC LABORATORY (ABNORMAL) EBV Capsid Antibody IgG (12/20/2019 11:32 AM CDT) Analysis Performed At Patho logist Time Signature EBV Capsid >8.0 (H) 0.0 - 0.8 12/21/2019 INFECTIOUS Antibody IgG AI 11:19 AM CDT DISEASES DIAGNOSTIC LABORATORY Comment: Positive, suggests recent or past exposu re Antibody index (AI) values reflect quali tative changes in antibody concentration that cannot be directly as sociated with clinical condition or disease state. Specimen Anatomical Collection Method Collection Time Receive d Time (Source) Location / / Volume Laterality Blood specimen 12/20/2019 11:32 0 (specimen) AM CDT 11:33 AM CDT Yosvany Hamilton MD LAB - BLOOD ORDERABLES Performing Organization Address City/[facility] Phon e Number INFECTIOUS DISEASES [address] [place] [address] DIAGNOSTIC LABORATORY, [facility] INFECTIOUS DISEASES [address] [place] [address], A DIAGNOSTIC LABORATORY EBV Capsid Antibody IgM (12/20/2019 11:32 AM CDT) athologist Signature EBV Capsid 0.8 0.0 - 0.8 12/21/2019 INFECTIOUS Antibody IgM AI 11:19 AM CDT DISEASES DIAGNOSTIC LABORATORY Comment: No detectable antibody. Antibody index (AI) values reflect quali tative changes in antibody concentration that cannot be directly as sociated with clinical condition or disease state. Specimen Anatomical Collection Method Collection Time Receive d Time (Source) Location / / Volume Laterality Blood specimen 12/20/2019 11:32 0 (specimen) AM CDT 11:33 AM CDT Yosvany Hamilton MD LAB - BLOOD ORDERABLES Performing Organization Address City/[facility]/ZIP [facility] Phon e Number INFECTIOUS DISEASES [address] [place] [address] DIAGNOSTIC LABORATORY, [facility] INFECTIOUS DISEASES [address] [place] [id number], A DIAGNOSTIC LABORATORY CK total (12/20/2019 8:49 AM CDT) athologist Signature CK Total 54 30 - 300 12/20/2019 [facility] U/L 9:13 AM CDT [facility] Specimen Anatomical Collection Method Collection Time Receive d Time (Source) Location / / Volume Laterality Blood specimen 12/20/2019 8:49 AM 020 8:50 (specimen) CDT AM CDT Yosvany Hamilton MD LAB - BLOOD ORDERABLES Performing Organization Address City/[facility]/ZIP Code Phon e Number [facility] Mononucleosis screen (12/19/2019 10:49 AM CDT) [facility] Time Signature Mononucleosis Negative NEG^Negat 12/19/2019 [facility] 11:11 AM CDT [facility] Specimen Anatomical Collection Method Collection Time Receive d Time (Source) Location / / Volume Laterality Blood specimen 12/19/2019 10:49 0 (specimen) AM CDT 10:50 AM CDT Amanda Blackwell MD LAB - BLOOD ORDERABLES Performing Organization Address City/State/ZIP Code Phon e Number [facility] [address] [place] [address] [facility] XR Chest Port 1 View (12/18/2019 10:31 PM CDT) Anatomical Region Laterality Modality Chest Computed Radiography Specimen (Source) Anatomical Location Collection Method / Collectio n Time Received Time / Laterality Volume Impressions 12/19/2019 6:38 AM CDT Impression: No focal airspace opacities. I have personally reviewed the examinati on and initial interpretation and I agree with the findings. SALEEM MICHAUD MD Narrative 12/19/2019 6:38 AM CDT Exam: XR CHEST PORT 1 VW, 12/18/2019 10:31 PM Indication: cough, fever and dyspnea Comparison: 06/25/2019 Findings: Portable radiograph of the chest. Postsu rgical chest. Unchanged stent along the right heart border. Cardiac si lhouette is not enlarged. Right-sided aortic arch. No focal airspa ce opacities. No pneumothorax. No pleural effusion. Visualized upper ab domen is unremarkable. No acute osseous abnormalities. Procedure Note Saleem Michaud MD - 12/19/2019Form atting of this note might be different from the original. Exam: XR CHEST PORT 1 VW, 12/18/2019 10:31 PM Indication: cough, fever and dyspnea Comparison: 06/25/2019 Findings: Portable radiograph of the chest. Postsu rgical chest. Unchanged stent along the right heart border. Cardiac si lhouette is not enlarged. Right-sided aortic arch. No focal airspa ce opacities. No pneumothorax. No pleural effusion. Visualized upper ab domen is unremarkable. No acute osseous abnormalities. Impression: No focal airspace opacities. I have personally reviewed the examinati on and initial interpretation and I agree with the findings. SALEEM MICHAUD MD Jose Meade MD IMG DIAGNOSTIC IMAGING ORDER BHAVESH Blood culture (12/18/2019 10:03 PM CDT) [facility] Method Time Signature Specimen Blood Right INFECTIOUS Description Arm DISEASES DIAGNOSTIC LABORATORY Special Received in 12/19/2019 INFECTIOUS Requests aerobic 2:58 AM CDT DISEASES bottle only DIAGNOSTIC LABORATORY Culture Micro No growth 12/25/2019 INFECTIOUS 3:56 AM CDT DISEASES DIAGNOSTIC LABORATORY Specimen Anatomical Collection Method Collection Time Receive d Time (Source) Location / / Volume Laterality Blood specimen 12/18/2019 10:03 0 (specimen) PM CDT 10:25 PM CDT Comment: Right Arm Jose Meade MD LAB - MICRO GENERAL ORDERABL ES Performing Organization Address City/State/ZIP Code Phon e Number INFECTIOUS DISEASES [address] [place] [address] DIAGNOSTIC LABORATORY, [facility] INFECTIOUS DISEASES [address] [place] [address], [place] A DIAGNOSTIC LABORATORY (ABNORMAL) CBC with platelets differential (12/18/2019 10:03 PM CDT) [facility] gist Method Time Signature WBC 10.7 4.0 - 12/18/2019 [facility] 11.0 10:36 PM [facility] 10e9/L CDT [facility] RBC Count 5.37 4.4 - 5.9 12/18/2019 [facility] 10e12/L 10:36 PM [facility] CDT [facility] Hemoglobin 15.8 13.3 - 12/18/2019 [facility] 17.7 g/dL 10:36 PM [facility] Hematocrit 46.5 40.0 - 12/18/2019 [facility] 53.0 % 10:36 PM [facility] MCV 87 78 - 100 12/18/2019 [facility] fl 10:36 PM [facility] MCH 29.4 26.5 - 12/18/2019 [facility] 33.0 pg 10:36 PM [facility] MCHC 34.0 31.5 - 12/18/2019 [facility] 36.5 g/dL 10:36 PM [facility] RDW 12.9 10.0 - 12/18/2019 [facility] 15.0 % 10:36 PM [facility] Platelet Count 114 (L) 150 - 450 12/18/2019 [facility] 10e9/L 10:36 PM [facility] Diff Method Automated 12/18/2019 [facility] Method 10:36 PM [facility] % Neutrophils 70.8 % 12/18/2019 [facility] 10:36 PM [facility] % Lymphocytes 18.0 % 12/18/2019 [facility] 10:36 PM [facility] % Monocytes 10.7 % 12/18/2019 [facility] 10:36 PM [facility] CDT [facility] % Eosinophils 0.2 % 12/18/2019 [facility] 10:36 PM [facility] CDT [facility] % Basophils 0.1 % 12/18/2019 [facility] 10:36 PM [facility] % Immature 0.2 % 12/18/2019 [facility] Granulocytes 10:36 PM [facility] Nucleated RBCs 0 0 /100 12/18/2019 [facility] 10:36 PM [facility] Absolute 7.6 1.6 - 8.3 12/18/2019 [facility] Neutrophil 10e9/L 10:36 PM [facility] Absolute 1.9 0.8 - 5.3 12/18/2019 [facility] Lymphocytes 10e9/L 10:36 PM [facility] Absolute 1.2 0.0 - 1.3 12/18/2019 [facility] Monocytes 10e9/L 10:36 PM [facility] Absolute 0.0 0.0 - 0.7 12/18/2019 [facility] Eosinophils 10e9/L 10:36 PM [facility] Absolute 0.0 0.0 - 0.2 12/18/2019 [facility] Basophils 10e9/L 10:36 PM [facility] Abs Immature 0.0 0 - 0.4 12/18/2019 [facility] Granulocytes 10e9/L 10:36 PM [facility] Absolute 0.0 12/18/2019 [facility] Nucleated RBC 10:36 PM [facility] Specimen Anatomical Collection Method Collection Time Receive d Time (Source) Location / / Volume Laterality Blood specimen 12/18/2019 10:03 0 (specimen) PM CDT 10:23 PM CDT Jose Meade MD LAB - BLOOD ORDERABLES Performing Organization Address City/State/ZIP Code Phon e Number [facility] [address] [place] [address] [facility] Procalcitonin (12/18/2019 10:03 PM CDT) P athologist Signature Procalcitonin 0.09 ng/ml 12/18/2019 [facility] 11:31 PM CDT [facility] Comment: 0.05-0.24 ng/ml Low risk of systemic syd terial infection. Local bacterial infection possible. ??Recommendation: As sess other clinical features of infection. Discourage antibiotics unless strong clinical suspicion for serious infection. Specimen Anatomical Collection Method Collection Time Receive d Time (Source) Location / / Volume Laterality Blood specimen 12/18/2019 10:03 0 (specimen) PM CDT 10:23 PM CDT Jose Meade MD LAB - BLOOD ORDERABLES Performing Organization Address City/[facility]/ZIP Code Phon e Number [address] (ABNORMAL) CRP inflammation (12/18/2019 10:03 PM CDT) Patholo gist Method Time Signature CRP Inflammation 36.0 (H) 0.0 - 8.0 12/18/2019 [place] [facility] mg/L 11:00 PM CDT [facility] Specimen Anatomical Collection Method Collection Time Receive d Time (Source) Location / / Volume Laterality Blood specimen 12/18/2019 10: 0 (specimen) PM CDT 10:23 PM CDT Jose Meade MD LAB - BLOOD ORDERABLES Performing Organization Address City/[facility]/ZIP Code Phon e Number [address] Nt probnp inpatient (BNP) (12/18/2019 10:03 PM CDT) P athologist Signature N-Terminal Pro 168 0 - 450 12/18/2019 [facility] BNP Inpatient pg/mL 11:00 PM CDT [facility] Comment: Reference range shown and results [...] Location / / Volume Laterality Blood specimen 12/18/2019 10:03 0 (specimen) PM CDT 10:23 PM CDT Jose Meade MD LAB - BLOOD ORDERABLES Performing Organization Address City/[facility]/ZIP Code Phon e Number [address] [address] [facility] (ABNORMAL) Lactic acid whole blood (12/18/2019 10:03 PM CDT) P athologist Signature Lactic Acid 0.6 (L) 0.7 - 2.0 12/18/2019 [facility] mmol/L 10:30 PM CDT [facility] Specimen Anatomical Collection Method Collection Time Receive d Time (Source) Location / / Volume Laterality Blood specimen 12/18/2019 10:03 0 (specimen) PM CDT 10:23 PM CDT Jose Meade MD LAB - BLOOD ORDERABLES Performing Organization Address City/[facility] Code Phon e Number [address] [address] [facility] (ABNORMAL) Comprehensive metabolic panel (12/18/2019 10:03 PM CDT) athologist Signature Sodium 138 133 - 144 12/18/2019 [facility] mmol/L 11:00 PM [facility] Potassium 3.8 3.4 - 5.3 12/18/2019 [facility] mmol/L 11:00 PM [facility] Comment: Specimen slightly hemolyzed, po tassium may be falsely elevated Chloride 105 98 - 110 mmol/L 12/18/2019 11:00 PM [facility] Carbon Dioxide 26 20 - 32 mmol/L 12/18/2019 11:00 PM [facility] Anion Gap 7 3 - 14 mmol/L 12/18/2019 11:00 PM [facility] Glucose 77 70 - 99 mg/dL 12/18/2019 11:00 PM [facility] Urea Nitrogen 15 7 - 30 mg/dL 12/18/2019 11:00 PM [facility] Creatinine 0.96 0.50 - 1.00 mg/dL 12/18/2019 11:00 PM [facility] GFR Estimate >90 >60 12/18/2019 11:00 PM [facility] [place] mL/min/{1.73_m2} [facility] R [facility] Comment: Non GFR Calc Starting 06/03/2018, serum creatinine ba sed estimated GFR (eGFR) will be calculated using the Chronic Kidney Dise ase Epidemiology Collaboration (CKD-EPI) equation. GFR Estimate If >90 >60 mL/min/{1.73_m2} 12/18/2019 11 :00 PM [facility] Black [facility] Comment: GFR Calc Starting 06/03/2018, serum creatinine ba sed estimated GFR (eGFR) will be calculated using the Chronic Kidney Dise ase Epidemiology Collaboration (CKD-EPI) equation. Calcium 8.6 8.5 - 10.1 12/18/2019 11:00 PM [facility] [place] mg/dL [facility] Bilirubin Total 2.7 (H) 0.2 - 1.3 12/18/2019 11:00 PM [facility] [place] mg/dL [facility] Albumin 4.0 3.4 - 5.0 g/dL 12/18/2019 11:00 PM [facility] Protein Total 7.8 6.8 - 8.8 g/dL 12/18/2019 11:00 PM [facility] Alkaline Phosphatase 67 65 - 260 U/L 12/18/2019 11:00 PM [facility] ALT 23 0 - 50 U/L 12/18/2019 11:00 PM [facility] AST 27 0 - 35 U/L 12/18/2019 11:00 PM [facility] Comment: Specimen is hemolyzed which can falsely elevate AST. Analysis of a non-hemolyzed specimen may result in a l ower value. Specimen Anatomical Collection Method Collection Time Receive d Time (Source) Location / / Volume Laterality Blood specimen 12/18/2019 10:03 0 (specimen) PM CDT 10:23 PM CDT Jose Meade MD LAB - BLOOD ORDERABLES Performing Organization Address City/State/ZIP Code Phon e Number [facility] [address] [place] [address] [facility] Rapid strep group A screen POCT (12/18/2019 9:51 PM CDT) P athologist Signature Rapid Strep A neg neg Screen Internal QC OK Yes Specimen (Source) Anatomical Collection Method Collection Time Re ceived Time Location / / Volume Laterality Specimen from 12/18/2019 9:51 PM throat (specimen) CDT Jose Meade MD LAB - ENTER/EDIT POCT Group A Streptococcus PCR Throat Swab (12/18/2019 9:43 PM CDT) [facility] ubitus Method Time Signature Specimen Throat 12/18/2019 [facility] Description 9:51 PM CDT [facility] Strep Group A Not Detected NDET^Not 12/19/2019 [facility] F PCR Detected 12:27 AM [facility] Comment: Group A Streptococcus DNA is not detecte d. FDA approved assay performed using [employer] GeneXpert real-time PCR. Specimen Anatomical Collection Method Collection Time Receive d Time (Source) Location / / Volume Laterality Specimen from 12/18/2019 9:43 PM 12/18/19 20 throat CDT 10:01 PM CDT (specimen) Guille Cortes MD LAB - MICRO GENERAL ORDERABL ES Performing Organization Address City/State/ZIP Code Phon e Number [facility] [address] [place] [address] [facility] Symptomatic COVID-19 Virus (Coronavirus) by PCR (12/18/2019 9:43 PM CDT) [facility] ubitus Method Time Signature COVID-19 Nasopharyngeal 12/18/2019 [facility] Virus PCR to 10:00 PM [facility] - CDT [facility] COVID-19 Not Detected 12/19/2019 [facility] Virus PCR to 3:40 PM CDT [facility] GENOMICS Result CENTER LABORATORY Comment: Collection of multiple specimens from th e same patient may be necessary to detect the virus. The possibility of a f alse negative should be considered if the patient's recent exposure or clinica l presentation suggests 2019 nCOV infection and diagnostic tests for other causes of illness are negative. Repeat testing may be considered in this setting. Viral RNA was extracted via a validated method and subsequently underwent single step reverse transcriptase-real t isaiah polymerase chain reaction using primers to the CDC specified N1,N2 gene targets of CoV2 and human [employer] as an internal control. A negative result does not rule out the presence of real-time PCR inhibitors in the specimen or COVID-19 RNA in cristiane ntrations below the limit of detection of the assay. The possibility of a fals e negative should be considered if the patients recent exposure or clinical pr esentation suggests COVID-19. Additional testing or repeat testing req uires consultation with the laboratory. Nasopharyngeal specimen is the preferred choice for swab-based SARS CoV2 testing. When collection of a nasopharyn geal swab is not possible the following are acceptable alternatives: an oropharyngeal (OP) specimen collected by a healthcare professional, or a nasal mid-turbinate (NMT) swab collected by a healthcare professional or by onsite self-collection (using a flocked tapered swab), or an anterior nares specimen collected by a healthcare profe ssional or by onsite self-collection (using a round foam swab). (Centers for Disease Control) Testing performed by [facility], Room 1-210, [address] [place] [address]. T his test was developed and its performance characteristics determined b y the [facility]. It has not been cleared or appr speedy by the FDA. The laboratory is regulated under the Cl inical Laboratory Improvement Amendments of 1988 (CLIA-88) as qualifie d to perform high-complexity testing. This test is used for clinical purposes. It should not be regarded as investigational or for research. Specimen (Source) Anatomical Collection Method Collection Time Re ceived Time Location / / Volume Laterality Specimen from 12/18/2019 9:43 12/18/2019 nasopharyngeal PM CDT 9:57 PM CDT structure (specimen) Jose Meade MD LAB - MICRO GENERAL ORDERABL ES Performing Organization Address City/State/ZIP Code Phon e Number [address] [address] [facility] Room: 1-[address] documented in this encounter Visit Diagnoses Diagnosis HSV (herpes simplex virus) infection - P rimary Herpes simplex without mention of compli cation Viral illness Unspecified viral infection, in conditio ns classified elsewhere and of unspecified site Hyperbilirubinemia Disorders of bilirubin excretion Thrombocytopenia (H) Thrombocytopenia, unspecified Exposure to SARS-associated coronavirus Dental infection Acute apical periodontitis of pulpal sky gin Fever Fever, unspecified documented in this encounter Administered Medications Inactive Administered Medications - up to 3 most recent administrations Medication Order MAR Action Action Date Dose Rate Site 0.9% sodium chloride BOLUS New Bag 12/19/2019 3:49 PM CDT 662 mLs Intravenous, 662 mL (10 mL/kg ? 66.2 kg), ONCE, On 12/19/19 at 1515, For 1 dose 0.9% sodium chloride BOLUS New Bag 12/20/2019 12:15 AM CDT 662 mLs Intravenous, 662 mL (10 mL/kg ? 66.2 kg), ONCE, On 12/20/19 at 0015, For 1 dose acetaminophen (TYLENOL) solution 500 mg Given 12/26/2019 12:20 AM CDT 500 mg 500 mg, Oral, EVERY 6 HOURS, First dose on Sat12/23/19 at 0300, Maximum acetaminophen dose from all sources= 75 mg/kg/day not to exceed 4 grams/day. Given 12/25/2019 7:25 PM CDT 500 mg Given 12/25/2019 12:35 PM CDT 500 mg acetaminophen (TYLENOL) solution 500 mg Given 12/26/2019 12:35 PM CDT 500 mg 500 mg, Oral, EVERY 6 HOURS PRN, mild pain, fever, Starting on 12/26/19 at 0945, Maximum acetaminophen dose from all sources= 75 mg/kg/day not to exceed 4 grams/day. acetaminophen (TYLENOL) tablet 500 mg Given 12/19/2019 1:29 AM CDT 500 mg 500 mg, Oral, EVERY 8 HOURS PRN, mild pain, Starting on 12/19/19 at 0052, Maximum acetaminophen dose from all sources = 75 mg/kg/day not to exceed 4 gram acetaminophen (TYLENOL) tablet 500 mg Given 12/21/2019 7:57 AM CDT 500 mg 500 mg, Oral, EVERY 8 HOURS, First dose (after last modification) on 12/19/19 at 1600, Maximum acetaminophen dose from all sources = 75 mg/kg/day not to exceed 4 gram Given 12/20/2019 11:59 PM CDT 500 mg Given 12/20/2019 3:55 PM CDT 500 mg acetaminophen (TYLENOL) tablet 500 mg Given 12/22/2019 8:12 PM CDT 500 mg 500 mg, Oral, EVERY 6 HOURS, First dose (after last modification) on Sat12/21/19 at 1400, Maximum acetaminophen dose from all sources = 75 mg/kg/day not to exceed 4 gram Given 12/22/2019 2:37 PM CDT 500 mg Given 12/22/2019 8:44 AM CDT 500 mg acyclovir (ZOVIRAX) 350 mg in D5W New Bag 12/28/2019 6:37 AM C DT 350 mg 100 mL/hr 100 mL intermittent infusion Routine, 350 mg (rounded from 334.5 mg = 5 mg/kg ? 66.9 kg), Intravenous, EVERY 8 HOURS, First dose on Sat12/23/19 at 1530, Irritant., Indications: Herpes Simplex Infection New Bag 12/27/2019 10:38 PM CDT 350 mg 100 mL/hr New Bag 12/27/2019 2:22 PM CDT 350 mg 100 mL/hr amoxicillin (AMOXIL) capsule 500 mg Given 12/29/2019 5:49 AM CDT 500 mg Routine, 500 mg, Oral, EVERY 8 HOURS SCHEDULED, First dose on Sat12/27/19 at 1400, Indications: Abscess Given 12/28/2019 10:33 PM CDT 500 mg Given 12/28/2019 2:38 PM CDT 500 mg ampicillin-sulbactam (UNASYN) 3 g vial to New Bag 12/27/2019 11:20 AM CDT 3 g attach to NS 100 mL bag Routine, 3 g, Intravenous, EVERY 6 HOURS, First dose on Sat12/23/19 at 2130, Indications: Skin and Soft Tissue Infection New Bag 12/27/2019 6:12 AM CDT 3 g New Bag 12/27/2019 12:39 AM CDT 3 g benzocaine 20% (HURRICAINE/TOPEX) 20 % Given 12/22/2019 10:13 AM CDT 0.5 mLs spray 0.5-1 mL 0.5-1 mL (1-2 spray), Mouth/Throat, EVERY 3 HOURS PRN, moderate pain, Starting on 12/20/19 at 0000 Given 12/20/2019 2:45 AM CDT 1 mL benzocaine-menthol (CEPACOL) 15-3.6 MG Given 12/19/2019 7:57 PM CDT 1 lozenge lozenge 1 lozenge 1 lozenge, Buccal, EVERY 1 HOUR PRN, sore throat, Starting on 12/19/19 at 1804 chlorhexidine (PERIDEX) 0.12 % solution 15 mL Given 12/28/2019 7:46 PM CDT 15 mLs 15 mL, Swish & Spit, 2 TIMES DAILY, First dose on Sat12/23/19 at 2000 Given 12/28/2019 8:22 AM CDT 15 mLs Given 12/27/2019 8:30 PM CDT 15 mLs dextrose 5% and 0.9% NaCl with Rate/Dose Change 12/28/2019 4:08 AM CDT 10 mL/hr potassium chloride 20 mEq infusion at 100 mL/hr, Intravenous, CONTINUOUS, 0-300mL per hour, PO + IV goal is 400 mL Q4, Starting on Sat12/23/19 at 1545, Until Sat12/28/19 at 1244 Rate/Dose Change 12/28/2019 1:46 AM CDT 100 mL/hr Rate/Dose Change 12/27/2019 11:00 PM CDT 10 mL/hr digoxin (LANOXIN) tablet 250 mcg Given 12/28/2019 8:23 AM CDT 250 mcg 250 mcg, Oral, DAILY, First dose on Sat12/19/19 at 0800 Given 12/27/2019 7:36 AM CDT 250 mcg Given 12/26/2019 7:59 AM CDT 250 mcg diphenhydrAMINE (BENADRYL) solution 25 m g Given 12/23/2019 11:52 PM CDT 25 mg 25 mg, Oral, EVERY 6 HOURS PRN, itching, Starting on 12/19/19 at 1452 Given 12/23/2019 2:03 AM CDT 25 mg Given 12/19/2019 11:25 PM CDT 25 mg furosemide (LASIX) half-tab 10 mg Given 12/23/2019 1:23 PM CDT 10 mg 10 mg, Oral, ONCE, On Sat12/23/19 at 1215, For 1 dose furosemide (LASIX) half-tab 10 mg Given 12/24/2019 3:55 PM CDT 10 mg 10 mg, Oral, ONCE, On Suze 12/24/19 at 1530, For 1 dose furosemide (LASIX) half-tab 10 mg Given 12/26/2019 10:04 AM CDT 10 mg 10 mg, Oral, ONCE, On 12/26/19 at 0945, For 1 dose furosemide (LASIX) half-tab 10 mg Given 12/27/2019 12:10 PM CDT 10 mg 10 mg, Oral, ONCE, On 12/27/19 at 1130, For 1 dose furosemide (LASIX) tablet 20 mg Given 12/28/2019 8:22 AM CDT 20 mg 20 mg, Oral, DAILY, First dose on 12/19/19 at 0800 Given 12/27/2019 7:36 AM CDT 20 mg Given 12/26/2019 7:59 AM CDT 20 mg ibuprofen (ADVIL/MOTRIN) suspension 400 mg Given 12/26/2019 7:59 AM CDT 400 mg 400 mg, Oral, EVERY 6 HOURS, First dose on 12/23/19 at 0030, Shake well. Do not give within 6 hours of ketorolac dose Recommended for infants age 6 months and older. Given 12/25/2019 10:27 PM CDT 400 mg Given 12/25/2019 3:21 PM CDT 400 mg ibuprofen (ADVIL/MOTRIN) suspension 400 mg 400 mg, Oral, EVERY 6 HOURS PRN, moderate pain, Do NOT given within 6 hours of ketorolac doses, Starting on 12/26/19 at 1501, Shake well. Do not give within 6 hours of ketorolac dose Recommended for infants age 6 months and older. ibuprofen (ADVIL/MOTRIN) tablet 200 mg Given 12/19/2019 6:30 AM CDT 200 mg 200 mg, Oral, EVERY 4 HOURS PRN, moderate pain, Starting on 12/19/19 at 0549 ibuprofen (ADVIL/MOTRIN) tablet 200 mg Given 12/21/2019 6:03 AM CDT 200 mg 200 mg, Oral, EVERY 4 HOURS, First dose (after last modification) on 12/19/19 at 1030 Given 12/21/2019 2:32 AM CDT 200 mg Given 12/20/2019 10:05 PM CDT 200 mg ibuprofen (ADVIL/MOTRIN) tablet 400 mg Given 12/22/2019 5:24 PM CDT 400 mg 400 mg, Oral, EVERY 6 HOURS, First dose (after last modification) on Sat12/21/19 at 1100 Given 12/22/2019 10:55 AM CDT 400 mg Given 12/22/2019 5:00 AM CDT 400 mg iopamidol (ISOVUE-370) solution 100 mL Given 12/23/2019 12:08 AM CDT 100 mLs 100 mL, Intravenous, ONCE, On Sat12/23/19 at 0015, For 1 dose ketorolac (TORADOL) injection 30 mg Given 12/23/2019 1:22 PM CDT 30 mg 30 mg, Intravenous, Administer over 5 Minutes, ONCE, On Sat12/23/19 at 1300, For 1 dose, Can cause pain on injection. If ordered intravenously (IV) : administer through a running maintenance fluid over 1 minute followed by a flush. If patient complains of pain on injection, may dilute 15-30 mg in 5 mL and push over 1 to 2 minutes. ketorolac (TORADOL) injection 30 mg Given 12/25/2019 1:31 AM CDT 30 mg 30 mg, Intravenous, Administer over 5 Minutes, EVERY 6 HOURS PRN, moderate pain, Starting on Sat12/25/19 at 0047, For 5 days, Do not give within 6 hours of ibuprofen dose Can cause pain on injection. If ordered intravenously (IV) : administer through a running maintenance fluid over 1 minute followed by a flush. If patient complains of pain on injection, may dilute 15-30 mg in 5 mL and push over 1 to 2 minutes. magic mouthwash suspension (diphenhydramine, Given 09/2019 2:36 PM CDT 10 mLs lidocaine, aluminum-magnesium & simethic one) 10 mL, Swish & Swallow, EVERY 6 HOURS PRN, mouth sores, Starting on 12/19/19 at 1239 metoprolol succinate ER (TOPROL-XL) 24 hr Given 12/28/2019 8:23 AM CDT 25 mg tablet 25 mg 25 mg, Oral, DAILY, First dose on 12/19/19 at 0800, DO NOT CRUSH. Tablet may be split in half along score line. Given 12/27/2019 7:36 AM CDT 25 mg Given 12/26/2019 7:59 AM CDT 25 mg montelukast (SINGULAIR) tablet 10 mg Given 12/28/2019 8:22 AM CDT 10 mg 10 mg, Oral, EVERY MORNING, First dose (after last modification) on 12/19/19 at 0800 Given 12/27/2019 7:37 AM CDT 10 mg Given 12/26/2019 7:59 AM CDT 10 mg morphine (PF) injection 2 mg Given 12/25/2019 6:57 AM CDT 2 mg 2 mg, Intravenous, ONCE, On Sat12/25/19 at 0630, For 1 dose, For ordered IV doses 0.1-15 mg give IV Push undiluted over 4-5 minutes. omeprazole (priLOSEC) CR capsule 20 mg Given 12/28/2019 8:23 AM CDT 20 mg 20 mg, Oral, DAILY, First dose on 12/19/19 at 0800 Given 12/27/2019 7:36 AM CDT 20 mg Given 12/26/2019 7:59 AM CDT 20 mg ondansetron (ZOFRAN) tablet 4 mg Given 12/23/2019 11:15 PM CDT 4 mg 4 mg, Oral, EVERY 6 HOURS PRN, nausea, vomiting, Starting on Sat12/23/19 at 0040 Given 12/23/2019 12:48 AM CDT 4 mg oxyCODONE (ROXICODONE) solution 5 mg Given 12/21/2019 10:56 PM CDT 5 mg 5 mg, Oral, ONCE PRN, moderate to severe pain, Starting on Sat12/19/19 at 1501, For 1 dose potassium chloride (KLOR-CON) Packet 20 mEq Given 12/24/2019 10:42 AM CDT 20 mEq 20 mEq, Oral, ONCE, On Suze 12/24/19 at 0915, For 1 dose, Dissolve packet contents in 4-8 ounces of cold water or juice. sildenafil (REVATIO) tablet 20 mg Given 12/19/2019 7:47 AM CDT 20 mg 20 mg, Oral, DAILY, First dose on 12/19/19 at 0800, If new prescription for the treatment of PH, insurance prior authorization is required before discharge. sildenafil (REVATIO) tablet 20 mg Given 12/28/2019 7:46 PM CDT 20 mg 20 mg, Oral, 3 TIMES DAILY, First dose (after last modification) on 12/19/19 at 1400, If new prescription for the treatment of PH, insurance prior authorization is required before discharge. Given 12/28/2019 2:38 PM CDT 20 mg Given 12/28/2019 8:23 AM CDT 20 mg sodium chloride 0.9% infusion Rate/Dose Verify 12/22/2019 8:00 AM CDT 50 mL/hr at 100 mL/hr, Intravenous, CONTINUOUS, Starting on Sat12/18/19 at 2158, Until Sat12/22/19 at 1155 New Bag 12/22/2019 5:03 AM CDT 50 mL/hr Rate/Dose Change 12/21/2019 4:06 PM CDT 50 mL/hr 50 mL/hr sodium chloride 0.9% infusion New Bag 12/23/2019 1:42 AM CDT 1,000 mLs 50 mL/hr at 100 mL/hr, Intravenous, CONTINUOUS, Starting on Sat12/22/19 at 1200, Until Sat12/23/19 at 1541 Rate/Dose Change 12/22/2019 4:44 PM CDT 50 mL/hr Rate/Dose Change 12/22/2019 2:39 PM CDT 5 mL/hr spironolactone (ALDACTONE) tablet 25 mg Given 12/28/2019 8:23 AM CDT 25 mg 25 mg, Oral, DAILY, First dose on Sat12/19/19 at 0800 Given 12/27/2019 7:36 AM CDT 25 mg Given 12/26/2019 7:59 AM CDT 25 mg traZODone (DESYREL) tablet 150 mg Given 12/19/2019 2:06 AM CDT 150 mg 150 mg, Oral, AT BEDTIME, First dose on Sat12/19/19 at 0200 valACYclovir (VALTREX) tablet 1,000 mg Given 12/28/2019 7:46 PM CDT 1,000 mg Routine, 1,000 mg, Oral, EVERY 12 HOURS SCHEDULED, First dose on Sat12/28/19 at 1030, Do NOT Crush., Indications: Herpes Simplex Infection Given 12/28/2019 10:53 AM CDT 1,000 mg documented in this encounter Active and Recently Administered Medications Times are shown in CDT. Scheduled Medication Order 12/27/2019 12/28/2019 12/29/2019 acyclovir (ZOVIRAX) 350 mg in D5W 100 mL intermittent infusion (CANCELED) 0736 (New Bag - Provider: Tylor Altman RN)1422 (New Bag - Provider: Tylor Altman RN)2238 (New Bag - Provider: Rajan Orta, BRIELLE) 0637 (New Bag - Provider: Massiel Gonzales, BRIELLE) Routine, 350 mg (rounded from 334.5 mg = 5 mg/kg ? 66.9 kg), Intravenous, EVERY 8 HOURS, First dose on Sat12/23/19 at 1530, Irritant., Indications: Herpes Simplex Infection amoxicillin (AMOXIL) capsule 500 mg 1422 (Given - Prov ider: Tylor Altman RN)2238 (Given - Provider: Rajan Orta, BRIELLE) 0555 (Given - Provider: Massiel Gonzales, BRIELLE)1438 (Given - Provider: Lin Griffith, RN)2233 (Given - Provider: Rosalind Clark, BRIELLE) 0549 (Given - Provider: Maddie Teague, BRIELLE) Routine, 500 mg, Oral, EVERY 8 HOURS HUBER EDULED, First dose on Sat12/27/19 at 1400, Indications: Abscess ampicillin-sulbactam (UNASYN) 3 g vial to attach to NS 100 mL bag (CANCELED) 0039 (New Bag - Provider: Massiel Gonzales, BRIELLE)0612 (New Bag - Provider: Massiel Gonzales, BRIELLE)1120 (New Bag - Provider: Tylor Altman RN) Routine, 3 g, Intravenous, EVERY 6 HOURS , First dose on Sat12/23/19 at 2130, Indications: Skin and Soft Tissue Infection chlorhexidine (PERIDEX) 0.12 % solution 15 mL 0736 (Gi eliot - Provider: Tylor Altman RN)2030 (Given - Provider: Rajan Orta, BRIELLE) 0822 (Given - Provider: Lin Griffith, BRIELLE)1946 (Given - Provider: Eulalia Mensah, BRIELLE) 0800 (Canceled Entry - Provider: Orders Generic Provider - Comment: Automatically canceled at discontinue of medication order) 15 mL, Swish & Spit, 2 TIMES DAILY, First dose on Sat12/23/19 at 2000 digoxin (LANOXIN) tablet 250 mcg 0736 (Given - Provider: Melody an Anupama, RN) 0823 (Given - Provider: Lin Griffith RN) 0800 (Canceled Entry - Provider: Orders Generic Provider - Comment: Automatically canceled at discontinue of medication order) 250 mcg, Oral, DAILY, First dose on 12/19/19 at 0800 furosemide (LASIX) half-tab 10 mg (COMPLETED) 1210 (Gi eliot - Provider: Tylor Altman RN) 10 mg, Oral, ONCE, 12/27/19 at 1130, For 1 dose furosemide (LASIX) tablet 20 mg 0736 (Given - Provider: Marcie Altman RN) 0822 (Given - Provider: Lin Griffith RN) 0800 (Canceled Entry - Provider: Orders Generic Provider - Comment: Automatically canceled at discontinue of medication order) 20 mg, Oral, DAILY, First dose on 12/19/19 at 0800 metoprolol succinate ER (TOPROL-XL) 24 hr tablet 25 mg 0736 (Given - Provider: Tylor Altman RN) 08 (Given - Provider: Lin Griffith RN) 08 (Canceled Entry - Provider: Orders Generic Provider - Comment: Automatically canceled at discontinue of medication order) 25 mg, Oral, DAILY, First dose on 12/19/19 at 0800, DO NOT CRUSH. Tablet may be split in half along score line. montelukast (SINGULAIR) tablet 10 mg 0737 (Given - Provider: Tylor Altman RN) 0822 (Given - Provider: Lin Griffith RN) 0800 (Canceled Entry - Provider: Orders Generic Provider - Comment: Automatically canceled at discontinue of medication order) 10 mg, Oral, EVERY MORNING, First dose ( after last modification) on 12/19/19 at 0800 omeprazole (priLOSEC) CR capsule 20 mg 0736 (Given - Provide r: Tylor Altman RN) 0823 (Given - Provider: Lin Griffith RN) 0800 (Canceled Entry - Provider: Orders Generic Provider - Comment: Automatically canceled at discontinue of medication order) 20 mg, Oral, DAILY, First dose on 12/19/19 at 0800 sildenafil (REVATIO) tablet 20 mg 0736 (Given - Provid er: Tylor Altman RN)1422 (Given - Provider: Tylor Altman RN)2030 (Given - Provider: Rajan Orta RN) 0823 (Given - Provider: Lin Griffith, BRIELLE)1438 (Given - Provider: Lin Griffith RN)1946 (Given - Provider: Eulalia Mensah, RN) 0800 (Canceled Entry - Provider: Orders Generic Provider - Comment: Automatically canceled at discontinue of medication order) 20 mg, Oral, 3 TIMES DAILY, First dose ( after last modification) on 12/19/19 at 1400, If new prescription for the treatment of PH, insurance prior authorization is required before discharge. sodium chloride 0.9% infusion at 100 mL/hr, Intravenous, ONCE, 1 dose, Sat12/23/19 at 0015 spironolactone (ALDACTONE) tablet 25 mg 0736 (Given - Provid er: Tylor Altman RN) 0823 (Given - Provider: Lin Griffith RN) 0800 (Canceled Entry - Provider: Orders Generic Provider - Comment: Automatically canceled at discontinue of medication order) 25 mg, Oral, DAILY, First dose on 12/19/19 at 0800 valACYclovir (VALTREX) tablet 1,000 mg 1 053 (Given - Provider: Lin Griffith RN)1946 (Given - Provider: Eulalia Mensah RN) 0800 (Canceled Entry - Provider: Orders Generic Provider - Comment: Automatically canceled at discontinue of medication order) Routine, 1,000 mg, Oral, EVERY 12 HOURS SCHEDULED, First dose on 12/28/19 at 1030, Do NOT Crush., Indications: Herpes Simplex Infection Continuous Medication Order 12/27/2019 12/28/2019 12/29/2019 dextrose 5% and 0.9% NaCl with potassium chloride 20 m Eq infusion (CANCELED) 0202 (Rate/Dose Change - Provider: Massiel Gonzales RN)0612 (Paused - Provider: Massiel Gonzales, BRIELLE)1422 (New Bag - Provider: Tylor Altman RN)2230 (Rate/Dose Verify - Provider: Massiel Gonzales RN)2300 (Rate/Dose Change - Provider: Massiel Gonzales, BRIELLE) 0146 (Rate/Dose Change - Provider: Massiel Gonzales RN)0408 (Rate/Dose Change - Provider: Massiel Gonzales RN)1100 (Stopped - Provider: Lin Griffith RN) at 100 mL/hr, Intravenous, CONTINUOUS, 0 -300mL per hour, PO + IV goal is 400 mL Q4, Starting 12/23/19 at 1545, Until 12/28/19 at 1244 PRN Medication Order 12/27/2019 12/28/2019 12/29/2019 acetaminophen (TYLENOL) solution 500 mg 500 mg, Oral, EVERY 6 HOURS PRN, mild pa in, fever, Starting 12/26/19 at 0945, Maximum acetaminophen dose from all sources= 75 mg/kg/day not to exceed 4 grams/day. benzocaine 20% (HURRICAINE/TOPEX) 20 % spray 0.5-1 mL 0.5-1 mL (1-2 spray), Mouth/Throat, EVER Y 3 HOURS PRN, moderate pain, Starting 12/20/19 at 0000 benzocaine-menthol (CEPACOL) 15-3.6 MG lozenge 1 lozenge 1 lozenge, Buccal, EVERY 1 HOUR PRN, sore throat, Starting Sat at 1804 diphenhydrAMINE (BENADRYL) solution 25 mg 25 mg, Oral, EVERY 6 HOURS PRN, itching, Starting 12/19/19 at 1452 ibuprofen (ADVIL/MOTRIN) suspension 400 mg 400 mg, Oral, EVERY 6 HOURS PRN, moderat e pain, Do NOT given within 6 hours of ketorolac doses, Starting 12/26/19 at 1501, Shake well. Do not give within 6 hours of ketorolac dose Recommended for infants age 6 months and older. ketorolac (TORADOL) injection 30 mg 30 mg, Intravenous, Administer over 5 Mi nutes, EVERY 6 HOURS PRN, moderate pain, Starting 12/25/19 at 0047, For 5 days, Do not give within 6 hours of ibuprofen dose Can cause pain on injection. If or dered intravenously (IV) : administer th rough a running maintenance fluid over 1 minute followed by a flush. If patient complains of pain on injection, may dilute 15-30 mg in 5 mL and push over 1 to 2 minutes. magic mouthwash suspension (diphenhydram ine, lidocaine, aluminum-magnesium & simethicone) 10 mL, Swish & Swallow, EVERY 6 HOURS MD N, mouth sores, Starting 12/19/19 at 1239 ondansetron (ZOFRAN) tablet 4 mg 4 mg, Oral, EVERY 6 HOURS PRN, nausea, vomiting, Starting 12/23/19 at 0040 documented in this encounter Additional Health Concerns Infection Onset Date Last Indicated Resolved Time Rule Out COVID-19 12/18/2019 12/18/2019 12/19/2019 3:4 2 PM CDT Rule Out COVID-19 12/21/2019 12/21/2019 12/22/2019 2:3 2 AM CDT Assessment Noted Time PHQ-9 Depression Total Score: 10 04/01/2019 9:14 AM CD T documented as of this encounter Care Teams Tube Splicer Relationship Specialty Start Date End Date Clinic, [facility] PCP - General 06/25/19 02/22/[address] [place] [id number] documented as of this encounter
--- OUTSIDE RECORDS SUMMARY | 2022-04-10 09:54 | XMS_ITS | Encounter Summary ---
:2000 Author Organization [place] Address [address] [facility] [place] [address] Care Team Providers Name Role Phone [facility] Primary Care Provider [phone] Encounter Details Date Type Department Care Team Description 08/19/2019 Hospital Encounter [facility] Cordell Juarez , S/P [facility] Laboratory procedure [address] [place], [place] YT[id number] [place], [place] [phone] [id number] Social History Tobacco Use Types Packs/Day Years Used Date Smoking Tobacco: Never Smokeless Tobacco: Never Comments: none at home Alcohol Use Standard Drinks/Week Comments No 0 (1 standard drink = 0.6 oz pure alcoho l) Sex Assigned at Date Recorded Male 03/09/2019 1:21 PM CDT documented as of this encounter Medications at Time of Discharge Medication Sig Dispensed Refills Start Date End Date amoxicillin (AMOXIL) 500 Take 4 capsules 20 capsule 3 2018 MG capsuleIndications: (2,000 mg) by mouth S/P Fontan procedure as needed (one hour prior to dental cleanings) acetaminophen (TYLENOL) Take 500 mg by 0 02/17/2020 500 MG tablet mouth every 8 hours as needed for mild pain DIGOX 250 MCG TAKE ONE TABLET BY 30 tablet 10 12/18/2018 tabletIndications: SVT MOUTH ONE TIME (supraventricular DAILY tachycardia) (H) Escitalopram Oxalate Take 10 mg by mouth 0 12/26/2019 (LEXAPRO PO) daily furosemide (LASIX) 20 MG Take 1 tablet [...] 20 Take 1 capsule (20 90 capsule 1 09/201811/04/[address] capsuleIndications: mg) by mouth daily Chest pain, unspecified TAKE 1 CAPSULE BY type MOUTH TWICE DAILY FOR ONE WEEK THEN ONCE DAILY sildenafil (REVATIO) 20 Take 1 tablet (20 90 tablet 11 06/2111/04/2019 MG tabletIndications: mg) by mouth three 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 Never use with nitroglycerin, terazosin or doxazosin. spironolactone TAKE ONE TABLET BY 30 tablet 10 10/15/2018 (ALDACTONE) 25 MG MOUTH ONE TIME tabletIndications: DAILY Hypoplastic left heart syndrome traZODone (DESYREL) 50 MG Take 50 mg by mouth 0 12/26/2019 tablet At Bedtime documented as of this encounter Plan of Treatment Upcoming Encounters Date Type Specialty Care Team Description 07/27/2022 Ancillary Procedure Cardiology Cordell Juarez MD [address] [place] [address] [address] (Wo rk) 07/27/2022 Office Visit Cardiology Cordell Juarez MD [address] [place] [place], [place] [id number] (Wo rk) documented as of this encounter Procedures Procedure Name Priority Date/Time Associated Comments Diagnosis CBC WITH PLATELETS & Routine 08/19/2019 10:25 S/P Fontan Res ults for this DIFFERENTIAL AM COMBAT SYSTEMS OPERATOR procedure procedure are i n the results section. DIGOXIN LEVEL Routine 08/19/2019 10:25 S/P Fontan Results fo r this AM COMBAT SYSTEMS OPERATOR procedure procedure are i n the results section. COMPREHENSIVE Routine 08/19/2019 10:25 S/P Fontan Results fo r this METABOLIC PANEL AM COMBAT SYSTEMS OPERATOR procedure procedure ar e in the results section. documented in this encounter Results Digoxin level (08/19/2019 10:25 AM COMBAT SYSTEMS OPERATOR) athologist Signature Digoxin Level 1.1 0.5 - 2.0 08/19/2019 [place] ug/L 11:39 AM [facility] Specimen Anatomical Collection Method Collection Time Receive d Time (Source) Location / / Volume Laterality Blood specimen 08/19/2019 10:25 0 (specimen) AM COMBAT SYSTEMS OPERATOR 10:41 AM COMBAT SYSTEMS OPERATOR Cordell Juarez MD LAB - BLOOD ORDERABLES Performing Organization Address City/State/ZIP Code Phon e Number M [facility] [address] [place] [address] [phone] [facility] [address] [place] [address], [place] [phone] (ABNORMAL) CBC with platelets differential (08/19/2019 10:25 AM COMBAT SYSTEMS OPERATOR) [facility] Method Time Signature WBC 5.5 4.0 - 08/19/2019 NOV[place] 11.0 10:45 AM [facility] 10e9/L [facility] RBC Count 5.94 (H) 4.4 - 5.9 08/19/2019 [place] 10e12/L 10:45 AM [facility] Hemoglobin 17.0 13.3 - 08/19/2019 [place] 17.7 g/dL 10:45 AM [facility] Hematocrit 53.4 (H) 40.0 - 08/19/2019 [place] 53.0 % 10:45 AM [facility] MCV 90 78 - 100 08/19/2019 [place] fl 10:45 AM [facility] MCH 28.6 26.5 - 08/19/2019 [facility] 33.0 pg 10:45 AM [facility] MCHC 31.8 31.5 - 08/19/2019 [facility] 36.5 g/dL 10:45 AM [facility] RDW 13.2 10.0 - 08/19/2019 [facility] 15.0 % 10:45 AM [facility] Platelet Count 190 150 - 450 08/19/2019 [facility] 10e9/L 10:45 AM [facility] Diff Method Automated 08/19/2019 [facility] Method 10:45 AM [facility] % Neutrophils 71.2 % 08/19/2019 [facility] 10:45 AM [facility] % Lymphocytes 18.9 % 08/19/2019 [facility] 10:45 AM [facility] % Monocytes 8.3 % 08/19/2019 [facility] 10:45 AM [facility] % Eosinophils 0.9 % 08/19/2019 [facility] 10:45 AM [facility] % Basophils 0.5 % 08/19/2019 [facility] 10:45 AM [facility] % Immature 0.2 % 08/19/2019 [facility] Granulocytes 10:45 AM [facility] Nucleated RBCs 0 0 /100 08/19/2019 [facility] 10:45 AM [facility] Absolute 3.9 1.6 - 8.3 08/19/2019 [facility] Neutrophil 10e9/L 10:45 AM [facility] Absolute 1.0 0.8 - 5.3 08/19/2019 [facility] Lymphocytes 10e9/L 10:45 AM [facility] Absolute 0.5 0.0 - 1.3 08/19/2019 [facility] Monocytes 10e9/L 10:45 AM [facility] Absolute 0.1 0.0 - 0.7 08/19/2019 [facility] Eosinophils 10e9/L 10:45 AM [facility] Absolute 0.0 0.0 - 0.2 08/19/2019 [facility] Basophils 10e9/L 10:45 AM [facility] Abs Immature 0.0 0 - 0.4 08/19/2019 [facility] Granulocytes 10e9/L 10:45 AM [facility] Absolute 0.0 08/19/2019 [facility] Nucleated RBC 10:45 AM [facility] Specimen Anatomical Collection Method Collection Time Receive d Time (Source) Location / / Volume Laterality Blood specimen 08/19/2019 10:25 0 (specimen) AM COMBAT SYSTEMS OPERATOR 10:41 AM COMBAT SYSTEMS OPERATOR Cordell Juarez MD LAB - BLOOD ORDERABLES Performing Organization Address City/State/ZIP Code Phon e Number M [facility] [address] [place], [place] [address] [facility] [address] [phone] Comprehensive metabolic panel (08/19/2019 10:25 AM COMBAT SYSTEMS OPERATOR) athologist Signature Sodium 139 133 - 144 08/19/2019 [place] mmol/L 10:54 AM [facility] Potassium 3.8 3.4 - 5.3 08/19/2019 [place] mmol/L 10:54 AM [facility] Chloride 107 98 - 110 08/19/2019 [place] mmol/L 10:54 AM [facility] Carbon Dioxide 29 20 - 32 08/19/2019 [place] mmol/L 11:03 AM [facility] Anion Gap 3 3 - 14 08/19/2019 [place] mmol/L 11:03 AM [facility] Glucose 97 70 - 99 08/19/2019 [place] mg/dL 11:03 AM [facility] Urea Nitrogen 23 7 - 30 08/19/2019 [place] mg/dL 11:03 AM [facility] Creatinine 1.00 0.50 - 08/19/2019 [place] 1.00 mg/dL 11:03 AM [facility] GFR Estimate >90 >60 08/19/2019 [place] mL/min/{1. 11:03 AM [facility] [id number]} HOSPITAL Comment: Non GFR Calc Starting 06/03/2018, serum creatinine ba sed estimated GFR (eGFR) will be calculated using the Chronic Kidney Dise [facility] Epidemiology Collaboration (CKD-EPI) equation. GFR Estimate If >90 >60 mL/min/{1.73_m2} 08/19/2019 11 :03 AM [facility] Comment: GFR Calc Starting 06/03/2018, serum creatinine ba sed estimated GFR (eGFR) will be calculated using the Chronic Kidney Dise [facility] Epidemiology Collaboration (CKD-EPI) equation. Calcium 9.3 8.5 - 10.1 mg/dL 08/19/2019 11:03 AM [facility] Bilirubin Total 1.0 0.2 - 1.3 mg/dL 08/19/2019 11:04 A M [facility] Albumin 4.4 3.4 - 5.0 g/dL 08/19/2019 11:04 AM [facility] Protein Total 8.0 6.8 - 8.8 g/dL 08/19/2019 11:04 AM [facility] Alkaline Phosphatase 83 65 - 260 U/L 08/19/2019 11:04 AM [facility] ALT 27 0 - 50 U/L 08/19/2019 11:04 AM [facility] AST 20 0 - 35 U/L 08/19/2019 11:04 AM [facility] Specimen Anatomical Collection Method Collection Time Receive d Time (Source) Location / / Volume Laterality Blood specimen 08/19/2019 10:25 0 (specimen) AM COMBAT SYSTEMS OPERATOR 10:41 AM COMBAT SYSTEMS OPERATOR Cordell Juarez MD LAB - BLOOD ORDERABLES Performing Organization Address City/State/ZIP Code Phon e Number M [facility] [address] [place] [address] [facility] [address] [phone] documented in this encounter Visit Diagnoses Diagnosis S/P Fontan procedure Other postprocedural status documented in this encounter Additional Health Concerns Assessment Noted Time PHQ-9 Depression Total Score: 10 04/01/2019 9:14 AM CD T documented as of this encounter Care Teams Rim Fire Priming Tool Setter Relationship Specialty Start Date End Date Clinic, [facility] PCP - General 06/25/19 02/22/[address] [place] [id number] documented as of this encounter
--- OUTSIDE RECORDS SUMMARY | 2022-04-10 09:54 | XMS_ITS | Encounter Summary ---
:2000 Author Organization [place] Address [address] [place] [address]. [place] [address] Care Team Providers Name Role Phone [facility], [facility] Primary Care Provider [phone] Encounter Details Date Type Department Care Team Description 12/18/2019 Travel Social History Tobacco Use Types Packs/Day [...] 07/27/2022 Ancillary Procedure Cardiology Cordell Juarez MD [facility] [phone] (Arleen valdes) 07/27/2022 Office Visit Cardiology Cordell Juarez MD [address] [place], [place] [phone] (Wo rk) documented as of this encounter Visit Diagnoses Not on filedocumented in this encounter Additional Health Concerns Infection Onset Date Last Indicated Resolved Time Rule Out COVID-19 12/18/2019 12/18/2019 12/19/2019 3:4 2 PM CDT Assessment Noted Time PHQ-9 Depression Total Score: 10 04/01/2019 9:14 AM CD T documented as of this encounter Care Teams Flooring Installer Relationship Specialty Start Date End Date [place], [place] PCP - General 06/25/19 02/22/[address] [place] [id number] documented as of this encounter
--- OUTSIDE RECORDS SUMMARY | 2022-04-10 09:54 | XMS_ITS | Encounter Summary ---
:2000 Author Organization [place] [address] [facility] [place] [address] Care Team Providers Name Role Phone Clinic, [facility] Primary Care Provider [phone] Reason for Visit Reason Comments RECHECK S/P Fontan procedure Encounter Details Date Type Department Care Team Description 08/19/2019 Office Visit [facility] Cordell Juarez, S/P Fontan procedure Pediatric Specialty MD (Primary Dx) Clinic [address] [facility] [address] [place] [id number] [phone] Social History Tobacco Use Types Packs/Day Years Used Date Smoking Tobacco: Never Smokeless Tobacco: Never Comments: none at home Alcohol Use Standard Drinks/Week Comments No 0 (1 standard drink = 0.6 oz pure alcoho l) Sex Assigned at Date Recorded Male 03/09/2019 1:21 PM CDT documented as of this encounter Last Filed Vital Signs Vital Sign Reading Time Taken Comments Blood Pressure 111/72 08/19/2019 9:10 AM [facility] Pulse 71 08/19/2019 9:10 AM [facility] Temperature - - Respiratory Rate 18 08/19/2019 9:10 AM [facility] Oxygen Saturation 96% 08/19/2019 10:08 AM [facility] Inhaled Oxygen Concentration - - Weight 64.7 kg (142 lb 10.2 oz) 08/19/2019 9:10 AM [facility] Height 163.9 cm (5' 4.53) 08/19/2019 9:10 AM [facility] Body Mass Index 24.08 08/19/2019 9:10 AM [facility] documented in this encounter Patient Instructions Patient InstructionsCordell Juarez MD - 08/19/2019 9:00 AM CST You were seen today in the Pediatric Cardiology Clinic Cardiology Providers you saw during your visit: Cordell Juarez MD Chief Complaint: S/P Fontan Results: Stable ECG - Some wheezing and cough Recommendations: See primary if wheezing/cough worsens Let me know if you bring any mucous or chunks up Continue taking furosemide 20 mg once daily Spironolactone 25 mg once daily Digoxin 250 mcg once daily Metoprolol XL 25 mg daily Sildenafil 20 mg - prescribed 3 times a day must take at least twice daily Get regular aerobic exercise, avif breathholding with weight lifting (lower weight, more reps) Labs today SBE prophylaxis: Yes__X__ No____ Amox 2 grams one hour prior to dental cleaning Exercise restrictions: Yes___ No__X__ If yes list restrictions: Rest if tired, avoid heavy weight lifting Work restrictions: Yes___ No__X__ If yes list restrictions: Follow-up: 4 months with echocardiogram Can be seen in Adult congenital clinic at [facility] [phone] or regular Saturday clinic Thank you for your visit today. If you have questions about today's visit, please call [facility] at [phone] or [facility] Nurse Line [phone] For after hours urgent needs call [phone] and ask to speak to the Pediatric Cardiology Physician superintendent nonselling. For emergencies call [phone]. [facility] documented in this encounter Progress Notes Cordell Juarez MD - 08/19/2019 9:00 AM CST Pediatric Cardiology Visit Patient: Jude SKINNERN: [id number] Date of : 2000 Age: 19 yo Date of Visit: Aug 19, 2019 PCP: Stephen Sauceda Dear Dr. Sauceda, I had the pleasure of seeing your patient, Jude Bills, in the Pediatric Cardiology Clinic at [facility] on Aug 19, 2019. 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 He underwent a central shunt, followed by a Fortino procedure and completion of a Fontan procedure at the [facility] in preparation room manager. He had catheter closure of his Fontan fenestration at the [facility] in January 2007. Jude has had some episodes of atrial tachycardia that improved on metoprolol. He has also been treated for chest pain, LE edema, and exercise intolerance that improved on low dose lasix, sildenafil and omeprazole. Jude was seen in the ED in June of this year for influenza. He was stable from a cardiovascular standpoint. He is here today for a scheduled follow up visit. Jude is feeling much better. 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 He exercises as possible and is aware of restrictions on heavy weight lifting. He has been feeling well with noankle edema, SOB, sustained arrhythmias, abdominal distension, diarrhea or episodes of bleeding. He is not on any anticoagulation due to multiple episodes of bleeding (most recently severe psoas hemorrhage in 2019). He lives in an apartment with a friend. Jude reports that he is still covered by his parents insurance and has access to his medications. Jude sees the dentist regulalry and uses antibiotic prophylaxis for SBE. PMH: [...] June 2019 with influenza SH:Jude is attending [employer] and living in an apartment with a roommate. Planning on goingto [employer] or nursing school. Prescription Medications as of 08/19/2019 Rx Number Disp Refills Start End Last Dispensed Date Next Fill Date Owning Pharmacy acetaminophen (TYLENOL) 500 MG tablet Sig: Take 500 mg by mouth every 8 hours as needed for mild pain Class: Historical Route: Oral amoxicillin (AMOXIL) 500 MG capsule 20 capsule 3 04/01/2019 [facility] [address] [place] [address] 3 Sig: Take 4 capsules (2,000 mg) by mouth as needed (one hour prior to dental cleanings) Class: E-Prescribe Route: Oral DIGOX 250 MCG tablet 30 tablet 10 12/18/2018 [facility] [address] [place] [address] Sig: TAKE ONE TABLET BY MOUTH ONE TIME DAILY Class: E-Prescribe Escitalopram Oxalate (LEXAPRO PO) Sig: Take 10 mg by mouth daily Class: Historical Route: Oral furosemide (LASIX) 20 MG tablet 90 tablet 3 04/01/2019 [facility] [address] [place] [address] Sig: Take 1 tablet (20 mg) by mouth daily Class: E-Prescribe Route: Oral metoprolol succinate ER (TOPROL-XL) 25 MG 24 hr tablet 30 tablet 11 03/24/2019 [facility] [address] [place] [address] 3 Sig: TAKE ONE TABLET BY MOUTH ONE TIME DAILY Class: E-Prescribe montelukast (SINGULAIR) 10 MG tablet 08/28/2018 Sig: Take 10 mg by mouth At Bedtime Class: Historical Route: Oral omeprazole (PRILOSEC) [address] capsule 90 capsule 1 12/18/2018 [facility] [address] [place] [address] 3 Sig: Take 1 capsule (20 mg) by mouth daily TAKE 1 CAPSULE BY MOUTH TWICE DAILY FOR ONE WEEK THEN ONCE DAILY Class: E-Prescribe Route: Oral sildenafil (REVATIO) 20 MG tablet 90 tablet 11 06/21/2017 [facility] [address] [place] [address] 3 Sig: Take 1 tablet (20 mg) by mouth three times daily for pulmonary hypertension. Never use with nitroglycerin, terazosin or doxazosin. Class: E-Prescribe spironolactone (ALDACTONE) 25 MG tablet 30 tablet 10 10/15/2018 [facility] [address] [place] [address] 3 Sig: TAKE ONE TABLET BY MOUTH ONE TIME DAILY Class: E-Prescribe traZODone (DESYREL) 50 MG tablet Sig: Take 50 mg by mouth At Bedtime Class: Historical Route: Oral Taking 20 mg lasix daily FH: Jude is adopted. No FH known. PE: His height is 1.639 m (5' 4.53) and weight is 64.7 kg (142 lb 10.2 oz). His blood pressure is 111/72 and his pulse is 71. His respiration is 18 and oxygen saturation is 92%. His body mass index is24.08 kg/m??. His body surface area is 1.72 meters squared. In general, he is a [...] with no hepatosplenomegaly or masses. Radial and femoralpulses are normal and LE extremities are warm [...] acute changes. Fractured inferior sternal wire. Labs: Lab Results Component Value Date WBC 5.5 08/19/2019 Lab Results Component Value Date RBC 5.94 08/19/2019 Lab Results Component Value Date HGB 17.0 08/19/2019 Lab Results Component Value Date HCT 53.4 08/19/2019 Lab Results Component Value Date MCV 90 08/19/2019 Lab Results Component Value Date MCH 28.6 08/19/2019 Lab Results Component Value Date MCHC 31.8 08/19/2019 Lab Results Component Value Date RDW 13.2 08/19/2019 Lab Results Component Value Date PLT 190 08/19/2019 Last Comprehensive Metabolic Panel: Sodium Date Value Ref Range Status 08/19/2019 139 133 - 144 mmol/L Final Potassium Date Value Ref Range Status 08/19/2019 3.8 3.4 - 5.3 mmol/L Final Chloride Date Value Ref Range Status 08/19/2019 107 98 - 110 mmol/L Final Carbon Dioxide Date Value Ref Range Status 08/19/2019 29 20 - 32 mmol/L Final Anion Gap Date Value Ref Range Status 08/19/2019 3 3 - 14 mmol/L Final Glucose Date Value Ref Range Status 08/19/2019 97 70 - 99 mg/dL Final Urea Nitrogen Date Value Ref Range Status 08/19/2019 23 7 - 30 mg/dL Final Creatinine Date Value Ref Range Status 08/19/2019 1.00 0.50 - 1.00 mg/dL Final GFR Estimate Date Value Ref Range Status 08/19/2019 >90 >60 mL/min/[1.73_m2] Final Comment: Non GFR Calc Starting 06/03/2018, serum creatinine based estimated GFR (eGFR) will be calculated using the Chronic Kidney Disease Epidemiology Collaboration (CKD-EPI) equation. Calcium Date Value Ref Range Status 08/19/2019 9.3 8.5 - 10.1 mg/dL Final Liver Function Studies - Recent Labs Lab Test 08/19/19 1025 PROTTOTAL 8.0 ALBUMIN 4.4 BILITOTAL 1.0 ALKPHOS 83 AST 20 ALT 27 Digoxin level 08/19/19 : 1.1 Impression and Plan: Jude is an [age]yo male s/p Fontan for heterotaxy, DORV, d-TGA, pulmonary stenosis and LV hypoplasia. He had device occlusion of his fenestration and has been bothered the last several years by palpitations and chest pain. He is currently asymptomatic from cardiac stand point and last set of labs showednormal hepatic and renal function, with no hypoproteinemia. Given his recent hemorrhagic event, the warfarin given for risk of thomboembolism is been held. Will hold off on prophylactic anticoagulationat this time. Recommendations: 1.No warfarin 2. Metoprolol XR 25 mg daily 3. Continue Sildenafil 20 mg tid 4. Continue lasix 20 mg daily and digoxin 5. Continue omeprazole for gastritis/pain 6. To ER if sustained arrhythmias, syncope, or new symptoms. 7. Antibiotics for SBE prophylaxis 8. F/U 6 months wit echocardiogram and rhythm monitoring. 9. No exercise restrictions. Avoid heavy weight lifting and valsalva. Stop and rest when fatigued. 10. Drink plenty of non caffeinated fluids. 11. Please call if questions or concerns. 12. I reviewed testing , medications, exercise and well being recommendations with Jude at this visit. He should continue to see a primary care provider regularly Sincerely Cordell Juarez M.D. Nursing Student of Pediatrics Pediatric and Adult Congenital Cardiology [facility] Pediatric Cardiology Office [phone] Adult Congenital Cardiology Triage and Scheduling [phone] CC: Jude Negar documented in this encounter Nursing Notes Kim Summers MA - 08/19/2019 9:00 AM CST Informant- Jude is accompanied by self Reason for Visit- S/P Fontan procedure Vitals signs- BP 111/72 Pulse 71 Resp 18 Ht 1.639 m (5' 4.53) Wt 64.7 kg (142 lb 10.2 oz) SpO2 92% BMI 24.08 kg/m?? There are concerns about the child's exposure to violence in the home: No Face to Face time: 5 minutes Kim Summers MA [facility] documented in this encounter Plan of Treatment Upcoming Encounters Date Type Specialty Care Team Description 07/27/2022 Ancillary Procedure Cardiology Cordell Juarez MD [address] [place], [place] [id number] (Wo rk) 07/27/2022 Office Visit Cardiology Cordell Juarez MD [address] [facility] [address] [place], [place] [id number] (Wo rk) documented as of this encounter Procedures Procedure Name Priority Date/Time Associated Diagnosis Comme [facility] ELECTROCARDIOGRAM Routine 08/19/2019 S/P Fontan procedu re Results for this REPORT, SUBSEQUENT - ED proc edure are in ONLY the results section. documented in this encounter Results Comprehensive metabolic panel (08/19/2019 10:25 AM [facility]) athologist Signature Sodium 139 133 - 144 08/19/2019 [facility] mmol/L 10:54 AM [facility] Potassium 3.8 3.4 - 5.3 08/19/2019 [facility] mmol/L 10:54 AM [facility] Chloride 107 98 - 110 08/19/2019 [facility] mmol/L 10:54 AM [facility] Carbon Dioxide 29 20 - 32 08/19/2019 [facility] mmol/L 11:03 AM [facility] Anion Gap 3 3 - 14 08/19/2019 [facility] mmol/L 11:03 AM [facility] Glucose 97 70 - 99 08/19/2019 [facility] mg/dL 11:03 AM [facility] Urea Nitrogen 23 7 - 30 08/19/2019 [facility] mg/dL 11:03 AM [facility] Creatinine 1.00 0.50 - 08/19/2019 [facility] 1.00 mg/dL 11:03 AM [facility] GFR Estimate >90 >60 08/19/2019 [facility] mL/min/{1. 11:03 AM [facility] 73_m2} HOSPITAL Comment: Non GFR Calc Starting 06/03/2018, serum creatinine ba sed estimated GFR (eGFR) will be calculated using the [facility] Kid[facility] Dise [facility] Epidemiology Collaboration (CKD-EPI) equation. GFR Estimate If >90 >60 mL/min/{1.73_m2} 08/19/2019 11 :03 AM [facility] Comment: GFR Calc Starting 06/03/2018, serum creatinine ba sed estimated GFR (eGFR) will be calculated using the Chronic Kidney Dise [facility] Epidemiology Collaboration (CKD-EPI) equation. Calcium 9.3 8.5 - 10.1 mg/dL 08/19/2019 11:03 AM [facility] Bilirubin Total 1.0 0.2 - 1.3 mg/dL 08/19/2019 11:04 A M [facility] Albumin 4.4 3.4 - 5.0 g/dL 08/19/2019 11:04 AM [facility] Protein Total 8.0 6.8 - 8.8 g/dL 08/19/2019 11:04 AM F [facility] Alkaline Phosphatase 83 65 - 260 U/L 08/19/2019 11:04 AM [facility] ALT 27 0 - 50 U/L 08/19/2019 11:04 AM [facility] AST 20 0 - 35 U/L 08/19/2019 11:04 AM [facility] Specimen Anatomical Collection Method Collection Time Receive d Time (Source) Location / / Volume Laterality Blood specimen 08/19/2019 10:25 0 (specimen) AM [facility] 10:41 AM [facility] Cordell Juarez MD LAB - BLOOD ORDERABLES Performing Organization Address City/State/ZIP Code Phon e Number M [facility] [address] [place], [place] [address] [facility] [address] [address] [phone] (ABNORMAL) CBC with platelets differential (08/19/2019 10:25 AM [facility]) [facility] gist Method Time Signature WBC 5.5 4.0 - 08/19/2019 [facility] 11.0 10:45 AM [facility] 10e9/L [facility] RBC Count 5.94 (H) 4.4 - 5.9 08/19/2019 [facility] 10e12/L 10:45 AM [facility] Hemoglobin 17.0 13.3 - 08/19/2019 [facility] 17.7 g/dL 10:45 AM [facility] Hematocrit 53.4 (H) 40.0 - 08/19/2019 [facility] 53.0 % 10:45 AM [facility] MCV 90 78 - 100 08/19/2019 [facility] fl 10:45 AM [facility] MCH 28.6 26.5 - 08/19/2019 [facility] 33.0 pg 10:45 AM [facility] MCHC 31.8 31.5 - 08/19/2019 [facility] 36.5 g/dL 10:45 AM [facility] RDW 13.2 10.0 - 08/19/2019 [facility] 15.0 % 10:45 AM [facility] Platelet Count 190 150 - 450 08/19/2019 [facility] 10e9/L 10:45 AM [facility] Diff Method Automated 08/19/2019 [facility] Method 10:45 AM [facility] % Neutrophils 71.2 % 08/19/2019 [facility] 10:45 AM [facility] % Lymphocytes 18.9 % 08/19/2019 [facility] 10:45 AM [facility] % Monocytes 8.3 % 08/19/2019 [facility] 10:45 AM [facility] % Eosinophils 0.9 % 08/19/2019 [facility] 10:45 AM [facility] % Basophils 0.5 % 08/19/2019 [facility] 10:45 AM [facility] % Immature 0.2 % 08/19/2019 [facility] Granulocytes 10:45 AM [facility] Nucleated RBCs 0 0 /100 08/19/2019 [facility] 10:45 AM [facility] Absolute 3.9 1.6 - 8.3 08/19/2019 [facility] Neutrophil 10e9/L 10:45 AM [facility] Absolute 1.0 0.8 - 5.3 08/19/2019 [facility] Lymphocytes 10e9/L 10:45 AM [facility] Absolute 0.5 0.0 - 1.3 08/19/2019 [facility] Monocytes 10e9/L 10:45 AM [facility] Absolute 0.1 0.0 - 0.7 08/19/2019 [facility] Eosinophils 10e9/L 10:45 AM [facility] Absolute 0.0 0.0 - 0.2 08/19/2019 [facility] Basophils 10e9/L 10:45 AM [facility] Abs Immature 0.0 0 - 0.4 08/19/2019 [facility] Granulocytes 10e9/L 10:45 AM [facility] Absolute 0.0 08/19/2019 [facility] Nucleated RBC 10:45 AM [facility] Specimen Anatomical Collection Method Collection Time Receive d Time (Source) Location / / Volume Laterality Blood specimen 08/19/2019 10:25 0 (specimen) AM [facility] 10:41 AM [facility] Cordell Juarez MD LAB - BLOOD ORDERABLES Performing Organization Address City/State/ZIP Code Phon e Number [facility] [address] [place], [place] [address] [facility] [address] [phone] Digoxin level (08/19/2019 10:25 AM [facility]) P athologist Signature Digoxin Level 1.1 0.5 - 2.0 08/19/2019 [place] ug/L 11:39 AM [facility] Specimen Anatomical Collection Method Collection Time Receive d Time (Source) Location / / Volume Laterality Blood specimen 08/19/2019 10:25 0 (specimen) AM [facility] 10:41 AM [facility] Cordell Juarez MD LAB - BLOOD ORDERABLES Performing Organization Address City/State/ZIP Code Phon e Number M [facility] [address] [place] [address] [phone] [facility] [address] [place] [address], [place] [phone] ELECTROCARDIOGRAM REPORT (08/19/2019) Narrative This result has an attachment that is no t available. Cordell Juarez MD PROCEDURES documented in this encounter Visit Diagnoses Diagnosis S/P Fontan procedure - Primary Other postprocedural status documented in this encounter Additional Health Concerns Assessment Noted Time PHQ-9 Depression Total Score: 10 04/01/2019 9:14 AM CD T documented as of this encounter Care Teams Peace Officer Relationship Specialty Start Date End Date Clinic, [facility] PCP - General 06/25/19 02/22/20 [address] [place] [address] documented as of this encounter
--- OUTSIDE RECORDS SUMMARY | 2022-04-10 09:55 | XMS_ITS | Encounter Summary ---
:2000 Author Organization [place] Address [address] [place] [address] Care Team Providers Name Role Phone Stephen Sauceda Primary Care Provider Encounter Details Date Type Department Care Team Description 12/17/2018 Travel Social History Tobacco Use Types Packs/Day [...] 07/27/2022 Ancillary Procedure Cardiology Cordell Juarez MD [address] [place] [id number] (Wo rk) 07/27/2022 Office Visit Cardiology Cordell Juarez MD [address] [place] [phone] (Wo rk) documented as of this encounter Visit Diagnoses Not on filedocumented in this encounter Care Teams Digital Associate Relationship Specialty Start Date End Date Komal, Stephen J PCP - General Pediatrics 03/06/17 06/24/19 [facility] [address] [place] [address] documented as of this encounter
--- OUTSIDE RECORDS SUMMARY | 2022-04-10 09:55 | XMS_ITS | Encounter Summary ---
:2000 Author Organization [place] Address [address] [place] [address]. [place] [address] Care Team Providers Name Role Phone Komal, Stephen Grant Primary Care Provider Encounter Details Date Type Department Care Team Description 06/22/2019 Telephone [facility] Explorer Tylor Motnes De Oca gre instructor Specialty Clinic [address] [place], [place] [id number] [phone] Social History Tobacco Use Types Packs/Day Years Used Date Smoking Tobacco: Never Smokeless Tobacco: Never Comments: none at home Alcohol Use Standard Drinks/Week Comments No 0 (1 standard drink = 0.6 oz pure alcoho l) Sex Assigned at Date Recorded Male 03/09/2019 1:21 PM CDT documented as of this encounter Miscellaneous Notes Telephone Encounter - Kirsten Montes De Oca RN - 06/22/2019 2:26 PM CST A message was received from Jude Etienne's mom, that he had been diagnosed with influenza at the end of May and was continuing to have on going concerns. A call was made to Jude and a message was left with call back information. [facility] documented in this encounter Plan of Treatment Upcoming Encounters Date Type Specialty Care Team Description 07/27/2022 Ancillary Procedure Cardiology Cordell Juarez MD [address] [facility] [address] [place] [address] (Wo rk) 07/27/2022 Office Visit Cardiology Cordell Juarez MD [address] [facility] [address] [place] [address] (Wo rk) documented as of this encounter Visit Diagnoses Not on filedocumented in this encounter Additional Health Concerns Assessment Noted Time PHQ-9 Depression Total Score: 10 04/01/2019 9:14 AM CD T documented as of this encounter Care Teams Marketing Engineer Relationship Specialty Start Date End Date Stephen Sauceda PCP - General Pediatrics 03/06/17 06/24/[address] [address] documented as of this encounter
--- OUTSIDE RECORDS SUMMARY | 2022-04-10 09:55 | XMS_ITS | Encounter Summary ---
:2000 Author Organization [place] Address [facility] [place] [address] Care Team Providers Name Role Phone Stephen Sauceda Primary Care Provider Reason for Referral Diagnostic Imaging MRI (Routine) - Closed Specialty Diagnoses / Procedures Referred By Contact Refer red To Contact Radiology. Diagnoses S/P Fontan procedure Cordell Juarez MD Ur Mri Procedures MRI Cardiac w/contrast and flow 2450 [facility] [employer] [address] [place], [place] [id number] 4 [place] [address] Phone: Referral ID Status Reason Start Date Expiration Date Visits Requ ested Visits Authorized [id number] Closed 04/01/2019 03/31/2020 1 1 [employer] Reason for Visit Diagnostic Imaging MRI (Routine) - Closed Specialty Diagnoses / Procedures Referred By Contact Refer red To Contact Radiology. Diagnoses S/P Fontan procedure Cordell Juarez MD Ur Mri Procedures MRI Cardiac w/contrast and flow [address] [employer] [address] [place], [place] [id number] 4 [place] [address] Phone: Referral ID Status Reason Start Date Expiration Date Visits Requ ested Visits Authorized [id number] Closed 04/01/2019 03/31/2020 1 1 Encounter Details Date Type Department Care Team Description 05/25/2019 Hospital Encounter [facility] Larry, Cordell Barajas , S/P Fontan [facility] Imaging MD procedure [address] [place] [id number] [phone] Social History Tobacco Use Types Packs/Day Years [...] Procedure Cardiology Cordell Juarez MD 2450 [facility] [place], [place] [address] (Wo rk) 07/27/2022 Office Visit Cardiology Cordell Juarez MD [address] [place], [place] [address] (Wo rk) documented as of this encounter Procedures Procedure Name Priority Date/Time Associated Diagnosis Comme nts MR CARDIAC W Routine 05/25/2019 2:06 PM S/P Fontan procedure R esults for this CONTRAST W FLOW PROGRAMMER BUSINESS procedure ar e in QUANT the results section. documented in this encounter Results MRI Cardiac w/contrast and flow (05/25/2019 2:06 PM PROGRAMMER [employer]) Anatomical Region Laterality Modality Cardio, SUBRAD MR BODY, UMP MR CHEST Mag netic Resonance Specimen (Source) Anatomical Location Collection Method / Collectio n Time Received Time / Laterality Volume Impressions 05/25/2019 3:33 PM PROGRAMMER BUSINESS IMPRESSION: 1. 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 2. Widely patent Fortino and Fontan anasto dyan. 3. Normal biventricular function. SALEEM ENG MD Narrative 05/25/2019 3:33 PM PROGRAMMER BUSINESS MRA CHEST WITH CONTRAST, MR CARDIAC W CONTRAST W FLOW QUANT ?? 05/25/2019 2:05 PM COMPARISON: ??06/24/2013 HISTORY: Congenital heart disease, known , (treated, repaired, or palliated), follow up; S/P Fontan proced ure. 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 He had catheter closure of hi s Fontan fenestration in January 2007. TECHNIQUE: MRI of the Heart: Using a 1.5-Jeannie MRI scanner, the following sequences were obtained of the heart: Sh ort axis, four chamber, left ventricular two and three chamber, and r ight ventricular two and three chamber TrueFISP images. In addition, Tr ueFISP images were obtained of the RVOT, pulmonary artery, and the aort a. Twist angiogram performed during contrast administration. Intraven ous administration of 6.2ml iv Gadavist was unremarkable. Phase contras t of the aorta, IVC, left SVC, right SVC, right pulmonary artery, and l eft pulmonary artery was performed. Three-dimensional reconstruct ions and functional analysis performed on an independent workstation. FINDINGS: SITUS: There is a normal spleen in the l eft upper quadrant. There is situs solitus in the chest, as demonstra ujlia by a normal airway pulmonary artery relationship bilaterall y. CAVAE: Bilateral SVC without a bridging vein. Each SVC is connected to the pulmonary artery via a Fortino anastom osis. IVC is connected to the right pulmonary artery through a extraca rdiac Fontan. PULMONARY VEINS: Two right and two left pulmonary veins drain into the left atrium unobstructed. ATRIA: Large interatrial communication. The atrial sizes are normal. ATRIOVENTRICULAR CONNECTION: Concordant. There is mild tricuspid regurgitation. VENTRICLES: D-loop ventricles with levoc ardia. Large interventricular communication. Right ventricular hypertr ophy is unchanged. VENTRICULOARTERIAL CONNECTION: No aortic regurgitation. AORTA AND SUPRA-AORTIC VESSELS: A right- sided aortic arch is demonstrated with mirror image cervical branching pattern. No evidence of patent ductus arteriosus, coarctation , or aortopulmonary collateral arteries. Single coronary artery origin. PULMONARY ARTERY: The pulmonary artery a re patent. QUANTITATIVE MEASUREMENTS: Weight: 64 kg. Height: 163 cm. BSA: 1.68 m^2. HR: 62bpm. BIVENTRICULAR VOLUME RESULTS ? ED volume: ?234.25 ml ? ED volume index: ?139.36 ml/m2 ? ED volume/HT: ? 144.10 ml/m ? ES volume: ?126.44 ml ? ES volume index: ?75.22 ml/m2 ? Stroke volume: ?107.82 ml ? Stroke volume index: ??64.14 ml/m2 ? Cardiac output: ? 6.74 l/min ? Cardiac output index: 4.01 l/(m2*min) ? Ejection fraction: ?46.03 % ?? Aorta: ??4.6 L/min Right pulmonary artery: 1.7 L/m Left pulmonary artery: 1.7 L/m IVC: 2.4 L/m Right SVC: 0.7 mL/m Left SVC: 0.5 mL/m Procedure Note Saleem Eng MD - 05/25/2019Form atting of this note might be different from the original. MRA CHEST WITH CONTRAST, MR CARDIAC W CO NTRAST W FLOW QUANT 05/25/2019 2:05 PM COMPARISON: 06/24/2013 HISTORY: Congenital heart disease, known , (treated, repaired, or palliated), follow up; S/P Fontan proced ure. 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 He had catheter closure of hi s Fontan fenestration in January 2007. TECHNIQUE: MRI of the Heart: Using a 1.5-Jeannie MRI scanner, the following sequences were obtained of the heart: Sh ort axis, four chamber, left ventricular two and three chamber, and r ight ventricular two and three chamber TrueFISP images. In addition, Tr ueFISP images were obtained of the RVOT, pulmonary artery, and the aort a. Twist angiogram performed during contrast administration. Intraven ous administration of 6.2ml iv Gadavist was unremarkable. Phase contras t of the aorta, IVC, left SVC, right SVC, right pulmonary artery, and l eft pulmonary artery was performed. Three-dimensional reconstruct ions and functional analysis performed on an independent workstation. FINDINGS: SITUS: There is a normal spleen in the l eft upper quadrant. There is situs solitus in the chest, as demonstra julia by a normal airway pulmonary artery relationship bilaterall y. CAVAE: Bilateral SVC without a bridging vein. Each SVC is connected to the pulmonary artery via a Fortino anastom osis. IVC is connected to the right pulmonary artery through a extraca rdiac Fontan. PULMONARY VEINS: Two right and two left pulmonary veins drain into the left atrium unobstructed. ATRIA: Large interatrial communication. The atrial sizes are normal. ATRIOVENTRICULAR CONNECTION: Concordant. There is mild tricuspid regurgitation. VENTRICLES: D-loop ventricles with levoc ardia. Large interventricular communication. Right ventricular hypertr ophy is unchanged. VENTRICULOARTERIAL CONNECTION: No aortic regurgitation. AORTA AND SUPRA-AORTIC VESSELS: A right- sided aortic arch is demonstrated with mirror image cervical branching pattern. No evidence of patent ductus arteriosus, coarctation , or aortopulmonary collateral arteries. Single coronary artery origin. PULMONARY ARTERY: The pulmonary artery a re patent. QUANTITATIVE MEASUREMENTS: Weight: 64 kg. Height: 163 cm. BSA: 1.68 m^2. HR: 62bpm. BIVENTRICULAR VOLUME RESULTS ED volume: 234.25 ml ED volume index: 139.36 ml/m2 ED volume/HT: 144.10 ml/m ES volume: 126.44 ml ES volume index: 75.22 ml/m2 Stroke volume: 107.82 ml Stroke volume index: 64.14 ml/m2 Cardiac output: 6.74 l/min Cardiac output index: 4.01 l/(m2*min) Ejection fraction: 46.03 % Aorta: 4.6 L/min Right pulmonary artery: 1.7 L/m Left pulmonary artery: 1.7 L/m IVC: 2.4 L/m Right SVC: 0.7 mL/m Left SVC: 0.5 mL/m IMPRESSION: 1. 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 2. Widely patent Fortino and Fontan anasto dyan. 3. Normal biventricular function. SALEEM ENG MD Cordell Juarez MD IMG MRI ORDERABLES documented in this encounter Visit Diagnoses Diagnosis S/P Fontan procedure Other postprocedural status documented in this encounter Administered Medications Inactive Administered Medications - up to 3 most recent administrations Medication Order MAR Action Action Date Dose Rate Site gadobutrol (GADAVIST) injection Given 05/25/2019 12:42 PM PROGRAMMER BUSINESS 6. 2 mLs 7.5 mL 7.5 mL, Intravenous, ONCE, On 05/25/19 at 1245, For 1 dose documented in this encounter Additional Health Concerns Assessment Noted Time PHQ-9 Depression Total Score: 10 04/01/2019 9:14 AM CD T documented as of this encounter Care Teams Utility Sales Representative Relationship Specialty Start Date End Date Stephen Sauceda PCP - General Pediatrics 03/06/17 06/24/[address] [address] documented as of this encounter
--- OUTSIDE RECORDS SUMMARY | 2022-04-10 09:55 | XMS_ITS | Encounter Summary ---
:2000 Author Organization [place] Address 2450 [facility] [place] [address] Care Team Providers Name Role Phone Stephen Sauceda Primary Care Provider Reason for Visit Reason Onset Date Comments reschedule appointment 11/17/2018 Encounter Details Date Type Department Care Team Description 11/17/2018 Telephone [facility] Cordell Juarez resc hedule appointment [facility] 2450 [facility] [address] [place] [address] [facility] [address] [place] [address] [place] [address] [place] [address] Social History Tobacco Use Types [...] Procedure Cardiology Cordell Juarez MD 2450 [facility]556 [place] [address] (Wo rk) 07/27/2022 Office Visit Cardiology Cordell Juarez MD 5350 [facility] [address] [place] [address] (Wo rk) documented as of this encounter Visit Diagnoses Not on filedocumented in this encounter Care Teams Health Services Coordinator Relationship Specialty Start Date End Date Stephen Sauceda PCP - General Pediatrics 03/06/17 06/24/19 [facility] [address] [place] [address] documented as of this encounter
--- OUTSIDE RECORDS SUMMARY | 2022-04-10 09:55 | XMS_ITS | Encounter Summary ---
:2000 Author Organization [place] Address 2450 [facility] [place] [address] Care Team Providers Name Role Phone Stephen Sauceda Primary Care Provider [facility] [place] Primary Care Provider [phone] Magnus Zayas DO Primary Care Provider [phone] Magnus Zayas DO Unavailable [phone] Reason for Visit Reason Onset Date Comments attempt to schedule appointment 01/13/2019 Encounter Details Date Type Department Care Team Description 01/13/2019 Telephone [facility] Cordell Juarez atte mpt to schedule [facility] appointment [facility]ty Clinic 2450 [facility] 2450 [facility] [facility] [address] [place] [address] [facility] [place] [address] Social History Tobacco Use Types [...] Procedure Cardiology Cordell Juarez MD [address] [place], [place] [phone] (Wo rk) 07/27/2022 Office Visit Cardiology Cordell Juarez MD [address] [place], [place] [address] (Wo rk) documented as of this encounter Visit Diagnoses Not on filedocumented in this encounter Additional Health Concerns Infection Onset Date Last Indicated Resolved Time Rule Out COVID-19 12/18/2019 12/18/2019 12/19/2019 3:4 2 PM CDT Rule Out COVID-19 12/21/2019 12/21/2019 12/22/2019 2:3 2 AM CDT documented as of this encounter Care Teams Survey Data Technician Relationship Specialty Start Date End Date Stephen Sauceda PCP - General Pediatrics 03/06/17 06/24/19 [facility] [address] [place] [address] [facility] PCP - General 06/25/19 02/22/[address] [place] [address] Magnus Zayas, PCP - General Student in organized 02/23/20 09/17/[address] education/training program [address] [place] [id number] Magnus Zayas, Assigned PCP 02/28/2004/[address] [place], [place] [address] documented as of this encounter
--- OUTSIDE RECORDS SUMMARY | 2022-04-10 09:55 | XMS_ITS | Encounter Summary ---
:2000 Author Organization [address] [place] [address] Care Team Providers Name Role Phone KomalStephen white Rudy Primary Care Provider Reason for Visit Reason Onset Date Comments Appointment 01/19/2019 Encounter Details Date Type Department Care Team Description 01/19/2019 Telephone [facility] Pediatric Cordell Juarez MD Appointment Specialty Clinic [address] [address] [address] [facility] [place] [address] [facility] [place] [address] [phone] Social History Tobacco Use Types Packs/Day Years Used Date Smoking Tobacco: Never Smokeless Tobacco: Never Comments: none at home Alcohol Use Standard Drinks/Week Comments No 0 (1 standard drink = 0.6 oz pure alcoho l) Sex Assigned at Date Recorded Male 03/09/2019 1:21 PM CDT documented as of this encounter Miscellaneous Notes Telephone Encounter - Lamonte Jimenez - 01/19/2019 2:15 PM CDT Mom called, inquiring about transferring patient to [facility] from [facility] with Dr. Cordell Juarez. documented in this encounter Plan of Treatment Upcoming Encounters Date Type Specialty Care Team Description 07/27/2022 Ancillary Procedure Cardiology Cordell Juarez MD 2450 [facility] [place] [address] (Wo rk) 07/27/2022 Office Visit Cardiology Cordell Juarez MD [address] [place] [address] (Wo rk) documented as of this encounter Visit Diagnoses Not on filedocumented in this encounter Care Teams Remedial Teacher Relationship Specialty Start Date End Date Stephen Sauceda PCP - General Pediatrics 03/06/17 06/24/19 [facility] [address] [place] [address] documented as of this encounter
--- OUTSIDE RECORDS SUMMARY | 2022-04-10 09:55 | XMS_ITS | Encounter Summary ---
:2000 Author Organization [place] Address [address] [place] [address] Care Team Providers Name Role Phone Stephen Sauceda Primary Care Provider Encounter Details Date Type Department Care Team Description 04/01/2019 Travel Social History Tobacco Use Types Packs/Day [...] 07/27/2022 Ancillary Procedure Cardiology Cordell Juarez MD [address] [place] [phone] (Wo rk) 07/27/2022 Office Visit Cardiology Cordell Juarez MD [address] [place] [phone] (Wo rk) documented as of this encounter Visit Diagnoses Not on filedocumented in this encounter Additional Health Concerns Assessment Noted Time PHQ-9 Depression Total Score: 10 04/01/2019 9:14 AM CD T documented as of this encounter Care Teams Psychiatric Aide Relationship Specialty Start Date End Date Stephen Sauceda PCP - General Pediatrics 03/06/17 06/24/[address] [facility] [address] [place] [address] documented as of this encounter
--- OUTSIDE RECORDS SUMMARY | 2022-04-10 09:55 | XMS_ITS | Encounter Summary ---
:2000 Author Organization [place] Address [facility] [place] [address] Care Team Providers Name Role Phone Stephen Sauceda Primary Care Provider Reason for Visit Reason Comments Medication Refill Encounter Details Date Type Department Care Team Description 12/29/2018 [address]ill [facility] Specialty Care [address] Juarez MD Medication Refill Center [address] [place] [address] [place] [address] [address] [place] [address] [phone] Social History Tobacco Use Types Packs/Day Years [...] Procedure Cardiology Cordell Juarez MD [address] [facility] [place] [address] (Wo rk) 07/27/2022 Office Visit Cardiology Cordell Juarez MD [address] [employer] [employer] [address] [place] [address] (Wo rk) documented as of this encounter 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 Care Teams Auto Repair Shop Manager Relationship Specialty Start Date End Date Stephen Sauceda PCP - General Pediatrics 03/06/17 06/24/19 [facility] [address] [place] [address] documented as of this encounter
--- OUTSIDE RECORDS SUMMARY | 2022-04-10 09:55 | XMS_ITS | Encounter Summary ---
:2000 Author Organization [place] Address [address] [place] [address] Care Team Providers Name Role Phone Stephen Sauceda Primary Care Provider Encounter Details Date Type Department Care Team Description 03/21/2019 Travel Social History Tobacco Use Types Packs/Day [...] 07/27/2022 Ancillary Procedure Cardiology Cordell Juarez MD [address] [place] [address] (Wo rk) 07/27/2022 Office Visit Cardiology Cordell Juarez MD [address] [place] [phone] (Wo rk) documented as of this encounter Visit Diagnoses Not on filedocumented in this encounter Care Teams Meat Hostess Relationship Specialty Start Date End Date Komal, Stephen J PCP - General Pediatrics 03/06/17 06/24/19 [facility] [address] [place] [address] documented as of this encounter
--- OUTSIDE RECORDS SUMMARY | 2022-04-10 09:55 | XMS_ITS | Encounter Summary ---
:2000 Author Organization [place] Address [address] [facility] [place] [address] Care Team Providers Name Role Phone KomalStephen Primary Care Provider Reason for Referral (Routine) - Closed Specialty Diagnoses / Procedures Referred By Contact Refer red To Contact Cardiology Diagnoses S/P Fontan procedure Cordell Juarez MD Rh Cardiac Services Procedures Echo Pediatric Congenital (TTE) HC ECHO XTHORACIC,NEHEMIAS ANOM,COMPLETE C ECHO CONGENTIAL F/U LIMITED HC ECHO CONGENTIAL F/U LIMITED W/O CONTRAST HC DOPPLER ECHO PULSED, COMPLETE HC DOPPLER ECHO PULSED, F/U OR LIMITED [address] [facility] [address] HC DOPPLER ECHO [place] [address] [place] [address] Phone: Referral ID Status Reason Start Date Expiration Date Visits Requ ested Visits Authorized [id number] Closed 04/01/2019 03/31/2020 1 1 Reason for Visit (Routine) - Closed Specialty Diagnoses / Procedures Referred By Contact Refer red To Contact Cardiology Diagnoses S/P Fontan procedure Cordell Juarez MD Rh Cardiac Services Procedures Echo Pediatric Congenital (TTE) HC ECHO XTHORACIC,NEHEMIAS ANOM,COMPLETE C ECHO CONGENTIAL F/U LIMITED HC ECHO CONGENTIAL F/U LIMITED W/O CONTRAST HC DOPPLER ECHO PULSED, COMPLETE HC DOPPLER ECHO PULSED, F/U OR LIMITED [address] HC DOPPLER ECHO [place] [address] [place] [address] Phone: Referral ID Status Reason Start Date Expiration Date Visits Requ ested Visits Authorized [id number] Closed 04/01/2019 03/31/2020 1 1 Encounter Details Date Type Department Care Team Description 04/01/2019 Hospital Encounter [facility] Cordell Juarez , S/P [facility] procedure Heart Care [address] [facility] [address] [facility] [place] [address] [facility] [phone] Social History Tobacco Use Types Packs/Day Years [...] Ancillary Procedure Cardiology Cordell Juarez MD [address] [address] (Wo rk) 07/27/2022 Office Visit Cardiology Cordell Juarez MD [address] [place], [place] [id number] (Wo rk) documented as of this encounter Procedures Procedure Name Priority Date/Time Associated Comments Diagnosis ECHO PEDIATRIC Routine 04/01/2019 10:29 AM S/P Fontan Result s for this CONGENITAL CDT procedure procedure are i n the results section. documented in this encounter Results ECHO PEDIATRIC CONGENITAL (04/01/2019 10:29 AM CDT) Anatomical Region Laterality Modality Echocardiography Specimen (Source) Anatomical Collection Method Collection Time Re ceived Time Location / / Volume Laterality 04/01/2019 10:13 AM CDT Narrative 04/01/2019 11:02 AM CDT [id number]^JAVIER^CORDELL^RYAN ?Study ID: [id number] ?[facility] ?[facility] ?[address] ?[place] [address] ? Pediatric Echocardiogram __ Name: JUDE BILLS Study Date: 04/01/2019 10:13 AM ? Patient Location: [facility] ? Age: 19 yrs : 2000 ? BP: 108/70 mmHg Gender: Male Patient Class: Outpatient ? Height: 163 cm Ordering Provider: CORDELL JUAREZ ?Weight: 63 kg Referring Provider: CORDELL JUAREZ ? BSA: 1.7 m2 Performed By: Lucina Vanegas Report approved by: Vinay Carroll Reason For Study: S/P Fontan procedure __ ------CONCLUSIONS------ Double outlet right ventricle, transposi [...] for comparison. ECG tracing shows regular rhythm. ECG tracing shows sinus bradycardia at 54 bp m. Segmental Anatomy: There is normal atrial arrangement. Abse nt left atrioventricular connection. Systemic and pulmonary veins: There is laminar phasic color flow in th e Fortino shunt. Patient has undergone Fontan operation. The Fontan connection is widely patent with phasic laminar flow. Post device closure of Fontan fene stration. The Fontan fenestration device is in good position. Atria and atrial septum: The right and [...] No pericardial effusion. Doppler Measurements & Calculations LV dP/dt: 866.0 mmHg/s desc Ao max dhruv: 90.8 cm/sec desc Ao max P.3 mmHg Report approved by: Vinay Carroll 04/01/2019 11:02 AM Procedure Note Gayathri Ayala MD - 04/01/2019Forma tting of this note might be different from the original. [id number]^JAVIER^CORDELL^RYAN Study ID: [id number] [address] [place] [address] Pediatric Echocardiogram __ Name: JUDE BILLS Study Date: 04/01/2019 10:13 AM Patient Location: [facility] Age: 19 yrs : 2000 BP: 108/70 mmHg Gender: Male Patient Class: Outpatient Height: 163 cm Ordering Provider: CORDELL JUAREZ Weight: 6 3 kg Referring Provider: CORDELL JUAREZ BS A: 1.7 m2 Performed By: Lucina Vanegas Report approved by: Vinay Carroll Reason For Study: S/P Fontan procedure __ ------CONCLUSIONS------ Double outlet right ventricle, transposi [...] for comparison. ECG tracing shows regular rhythm. ECG tracing shows sinus bradycardia at 54 bp m. Segmental Anatomy: There is normal atrial arrangement. Abse nt left atrioventricular connection. Systemic and pulmonary veins: There is laminar phasic color flow in th e Fortino shunt. Patient has undergone Fontan operation. The Fontan connection is widely patent with phasic laminar flow. Post device closure of Fontan fene stration. The Fontan fenestration device is in good position. Atria and atrial septum: The right and [...] No pericardial effusion. Doppler Measurements & Calculations LV dP/dt: 866.0 mmHg/s desc Ao max dhruv: 90.8 cm/sec desc Ao max P.3 mmHg Report approved by: Vinay Carroll 04/01/2019 11:02 AM Cordell Juarez MD CV PEDS ECHO ORDERABLES documented in this encounter Visit Diagnoses Diagnosis S/P Fontan procedure Other postprocedural status documented in this encounter Additional Health Concerns Assessment Noted Time PHQ-9 Depression Total Score: 10 04/01/2019 9:14 AM CD T documented as of this encounter Care Teams Senior Office Assistant Relationship Specialty Start Date End Date Stephen Sauceda PCP - General Pediatrics 03/06/17 06/24/[address] [address] documented as of this encounter
--- OUTSIDE RECORDS SUMMARY | 2022-04-10 09:55 | XMS_ITS | Encounter Summary ---
:2000 Author Organization [place] Address [address] [facility] [place] [address] Care Team Providers Name Role Phone Stephen Sauceda Primary Care Provider Reason for Referral Diagnostic Imaging MRI (Routine) - Closed Specialty Diagnoses / Procedures Referred By Contact Refer red To Contact Radiology. Diagnoses S/P Fontan procedure Cordell Juarez MD Ur Mri Procedures MRA Chest with Contrast [address] [place], [place] [id number] 4 [place] [address] Phone: Referral ID Status Reason Start Date Expiration Date Visits Requ ested Visits Authorized [id number] Closed 05/25/2019 05/24/2020 1 1 FILLER Reason for Visit Diagnostic Imaging MRI (Routine) - Closed Specialty Diagnoses / Procedures Referred By Contact Refer red To Contact Radiology. Diagnoses S/P Fontan procedure Cordell Juarez MD Ur Mri Procedures MRA Chest with Contrast [address] [facility] [place], [place] [address] [place] [address] Phone: Referral ID Status Reason Start Date Expiration Date Visits Requ ested Visits Authorized [id number] Closed 05/25/2019 05/24/2020 1 1 Encounter Details Date Type Department Care Team Description 05/25/2019 [facility] Cordell Barajas , S/P Fontan [facility] Imaging MD procedure [address] [place] [address] [phone] Social History Tobacco Use Types Packs/Day Years [...] At Bedtime documented as of this encounter Miscellaneous Notes Result Encounter Note - Cordell Juarez MD - 05/25/2019 11:59 PM PIE FILLER REviewed with Jude and his mother during ER visit No concerns. Follow up as scheduled. FILLER documented in this encounter Plan of Treatment Upcoming Encounters Date Type Specialty Care Team Description 07/27/2022 Ancillary Procedure Cardiology Cordell Juarez MD [facility] [place] [address] ( rk) 07/27/2022 Office Visit Cardiology Cordell Juarez MD [address] [facility] [place] [address] (Arleen rk) documented as of this encounter Procedures Procedure Name Priority Date/Time Associated Diagnosis Comme nts MRA CHEST W Routine 05/25/2019 2:05 PM S/P Fontan procedure R esults for this CONTRAST PIE FILLER procedure are i n the results section. documented in this encounter Results MRA Chest with Contrast (05/25/2019 2:05 PM PIE FILLER) Anatomical Region Laterality Modality Chest, SUBRAD IR PROCEDURE, UMP MR MRA, RAD MR Magnetic Resonance Specimen (Source) Anatomical Location Collection Method / Collectio n Time Received Time / Laterality Volume Impressions 05/25/2019 3:33 PM PIE FILLER IMPRESSION: 1. 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 2. Widely patent Fortino and Fontan anasto dyan. 3. Normal biventricular function. SALEEM ENG MD Narrative 05/25/2019 3:33 PM PIE FILLER MRA CHEST WITH CONTRAST, MR CARDIAC W [...] completion of a Fontan procedure at the [facility] in early childhood education specialist. He had catheter closure of hi s [...] completion of a Fontan procedure at the [facility] in early childhood education specialist. He had catheter closure of hi s [...] documented as of this encounter Care Teams Coal Crusher Operator Relationship Specialty Start Date End Date Stephen Sauceda PCP - General Pediatrics 03/06/17 06/24/[address] [address] documented as of this encounter
--- OUTSIDE RECORDS SUMMARY | 2022-04-10 09:55 | XMS_ITS | Encounter Summary ---
:2000 Author Organization [place] Address [address] [facility] [place] [address] Care Team Providers Name Role Phone Stephen Sauceda Primary Care Provider Reason for Visit Reason Comments Medication Refill Encounter Details Date Type Department Care Team Description 10/13/2018 Refill [facility] Cordell Juarez MD Medication Refill [facility] [address] [place], [place] [address]E [address] Specialty Clinic [place], [place] [address] [place] [address] [facility] [address] [place] [address] [place] [address] Social History Tobacco Use Types Packs/Day Years Used Date Smoking Tobacco: Never Smokeless Tobacco: Never Comments: none at home Alcohol Use Standard Drinks/Week Comments No 0 (1 standard drink = 0.6 oz pure alcoho l) Sex Assigned at Date Recorded Male 03/09/2019 1:21 PM CDT documented as of this encounter Miscellaneous Notes Telephone Encounter - Lorena Reed RN - 10/15/2018 1:33 PM CDT Reviewed chart and refilled medications. Sent message to scheduling to get patient scheduled in November documented in this encounter Plan of Treatment Upcoming Encounters Date Type Specialty Care Team Description 07/27/2022 Ancillary Procedure Cardiology Cordell Juarez MD [address] [facility] [place] [address] (Wo rk) 07/27/2022 Office Visit Cardiology Cordell Juarez MD [address] [facility] [place] [address] (Wo rk) documented as of this encounter Visit Diagnoses Diagnosis Hypoplastic left heart syndrome Tachycardia Tachycardia, unspecified documented in this encounter Care Teams Host/Hostess Ground Relationship Specialty Start Date End Date Stephen Sauceda PCP - General Pediatrics 03/06/17 06/24/19 [facility] [address] [place] [address] documented as of this encounter
--- OUTSIDE RECORDS SUMMARY | 2022-04-10 09:55 | XMS_ITS | Encounter Summary ---
:2000 Author Organization [place] Address [address] [place] [address]. [place] [address] Care Team Providers Name Role Phone Stephen Sauceda Primary Care Provider Reason for Visit CV Testing (Routine) - Closed Specialty Diagnoses / Procedures Referred By Contact Refer red To Contact Diagnoses S/P Fontan procedure Cordell Juarez MD Procedures Zio Patch Holter Adult Pediatric Greater than 48 hrs HC EXT ECG > 48HR TO 21 DAY RCRD W/CONECT INTL RCRD C EXT ECG > 48HR TO 21 DAY REVIEW AND INTERPRETATN [address] [place] [address] Referral ID Status Reason Start Date Expiration Date Visits Requ ested Visits Authorized [id number] Closed 10/10/2018 10/10/2019 1 1 Encounter Details Date Type Department Care Team Description 11/18/2018 Ancillary [facility] Cordell Juarez S/Kalia Fontan Procedure [facility] MD procedure Specialty Clinic [address] [place] [address] [facility] [place], [place] 12th Floor [address] 2450 [facility] [phone] [place], [place] (Work) [address] [phone] Social History Tobacco Use Types Packs/Day Years [...] Ancillary Procedure Cardiology Cordell Juarez MD [address] [facility] [address] [place] [address] (Wo rk) 07/27/2022 Office Visit Cardiology Cordell Juarez MD [address] [facility]6 [place] [address] (Wo rk) documented as of this encounter Procedures Procedure Name Priority Date/Time Associated Diagnosis Comme nts LEADLESS EMERGENCY DISPATCH OPERATOR 3 TO 7 DAYS Routine 01/26/2019 S/P Font an procedure documented in this encounter Results Zio Patch Holter Adult Pediatric Greater than 48 hrs (01/26/2019) Anatomical Region Laterality Modality Cardiac Electrophysi ology Specimen (Source) Anatomical Location Collection Method / Collectio n Time Received Time / Laterality Volume Narrative This result has an attachment that is no t available. Cordell Juarez MD CV CARDIAC SERVICES ORDERABL ES documented in this encounter Visit Diagnoses Diagnosis S/P Fontan procedure Other postprocedural status documented in this encounter Care Teams Family Support Specialist Relationship Specialty Start Date End Date Stephen Sauceda PCP - General Pediatrics 03/06/17 06/24/19 [facility] [address] [place] [address] documented as of this encounter
--- OUTSIDE RECORDS SUMMARY | 2022-04-10 09:55 | XMS_ITS | Encounter Summary ---
:2000 Author Organization [place] Address [facility] [place] [address] Care Team Providers Name Role Phone Komal, Stephen Grant Primary Care Provider Encounter Details Date Type Department Care Team Description 01/20/2019 Ancillary Procedure [facility] Spec, Nurse Only [facility] [address]th [address] [place] [address] Social History Tobacco Use Types Packs/Day Years Used Date Smoking Tobacco: Never Smokeless Tobacco: Never Comments: none at home Alcohol Use Standard Drinks/Week Comments No 0 (1 standard drink = 0.6 oz pure alcoho l) Sex Assigned at Date Recorded Male 03/09/2019 1:21 PM CDT documented as of this encounter Patient Instructions Patient InstructionsIrish Keys CMA - 01/20/2019 8:30 AM CDT Person(s) Involved in Teaching Parent/patient Motivation Level Asks Questions Yes Eager to Learn Yes Cooperative Yes Receptive (willing/able to accept information) Yes Any cultural factors/rastafari beliefs that may influence understanding or compliance? No Teaching Concerns Addressed Reviewed diary and proper care of monitor with parent(s)/guardian(s) and patient. Family instructed to return monitor via atomic spectroscopist/mailbox after 7 day(s) . For questions or problems, call [employer] with number provided 07/01. Comments Patient will send monitor back via atomic spectroscopist/mailbox. Instructional Materials Used/Given 7 day(s) Zio Patch Holter Monitor Time Spent With Patient 15 minutes Teaching Completed By Irish Keys CMA documented in this encounter Plan of Treatment Upcoming Encounters Date Type Specialty Care Team Description 07/27/2022 Ancillary Procedure Cardiology Cordell Juarez MD [address] [place] [address] [place] [address] (Wo rk) 07/27/2022 Office Visit Cardiology Cordell Juarez MD [address] [facility] [place] [address] (Wo rk) Pending Results Name Type Priority Associated Diagnoses Date/Ti ak Zio Patch Holter Cardiac Services STAT Atrial arrhythmia 12:21 PM Adult Pediatric CDT Greater than 48 hrs documented as of this encounter Visit Diagnoses Not on filedocumented in this encounter Care Teams Manager Packaging Relationship Specialty Start Date End Date Stephen Sauceda PCP - General Pediatrics 03/06/17 06/24/19 [facility] [address] [place] [address] documented as of this encounter
--- OUTSIDE RECORDS SUMMARY | 2022-04-10 09:55 | XMS_ITS | Encounter Summary ---
:2000 Author Organization [place] Address [facility] [place] [address] Care Team Providers Name Role Phone KomalStephen mejia Rudy Primary Care Provider Reason for Visit Reason Comments Medication Refill Encounter Details Date Type Department Care Team Description 12/14/2018 Refill [facility] Cordell Juarez MD Medication Refill [facility] [address] [place] [address] [address] Specialty Clinic [place], [place] [address] [place] [address] [facility] [address] [place] [address] [place] [address] Social History Tobacco Use Types Packs/Day Years Used Date Smoking Tobacco: Never Smokeless Tobacco: Never Comments: none at home Alcohol Use Standard Drinks/Week Comments No 0 (1 standard drink = 0.6 oz pure alcoho l) Sex Assigned at Date Recorded Male 03/09/2019 1:21 PM CDT documented as of this encounter Miscellaneous Notes Telephone Encounter - Kaylynn Galvan RN - 12/17/2018 10:19 AM CDT Patient not seen in this clinic. documented in this encounter Plan of Treatment Upcoming Encounters Date Type Specialty Care Team Description 07/27/2022 Ancillary Procedure Cardiology Cordell Juarez MD [address] [address] (Wo rk) 07/27/2022 Office Visit Cardiology Cordell Juarez MD [address] [place] [address] [place], [place] [address] (Wo rk) documented as of this encounter Visit Diagnoses Diagnosis Chest pain, unspecified type SVT (supraventricular tachycardia) (H) Other specified cardiac dysrhythmias documented in this encounter Care Teams Manual Writer Relationship Specialty Start Date End Date Stephen Sauceda PCP - General Pediatrics 03/06/17 06/24/19 [facility] [address] [place] [address] documented as of this encounter
--- OUTSIDE RECORDS SUMMARY | 2022-04-10 09:55 | XMS_ITS | Encounter Summary ---
:2000 Author Organization [place] Address [address] [place] [address] Care Team Providers Name Role Phone Stephen Sauceda Primary Care Provider Encounter Details Date Type Department Care Team Description 11/18/2018 Travel Social History Tobacco Use Types Packs/Day [...] 07/27/2022 Ancillary Procedure Cardiology Cordell Juarez MD [address] [place] [address] (Wo rk) 07/27/2022 Office Visit Cardiology Cordell Juarez MD [address] [place] [id number] (Wo rk) documented as of this encounter Visit Diagnoses Not on filedocumented in this encounter Care Teams Dental Professional Relationship Specialty Start Date End Date Komal, Stephen J PCP - General Pediatrics 03/06/17 06/24/19 [facility] [address] [place] [address] documented as of this encounter
--- OUTSIDE RECORDS SUMMARY | 2022-04-10 09:55 | XMS_ITS | Encounter Summary ---
:2000 Author Organization [place] Address [address] [facility] [place] [address] Care Team Providers Name Role Phone Stephen Sauceda Primary Care Provider Reason for Visit Reason Comments Medication Refill Encounter Details Date Type Department Care Team Description 03/23/2019 Refill [facility] Cordell Juarez MD Medication Refill [facility] [address] [facility] [address] Specialty Clinic [place], [place] [address] [place] [address] [place] [address] Social History Tobacco Use Types [...] Ancillary Procedure Cardiology Cordell Juarez MD [address] [facility] [place] [address] (Wo rk) 07/27/2022 Office Visit Cardiology Cordell Juarez MD [address] [place] [address] (Wo rk) documented as of this encounter Visit Diagnoses Diagnosis Tachycardia Tachycardia, unspecified documented in this encounter Care Teams Cad Design Engineer Relationship Specialty Start Date End Date Stephen Sauceda PCP - General Pediatrics 03/06/17 06/24/19 [facility] [address] [place] [address] documented as of this encounter
--- OUTSIDE RECORDS SUMMARY | 2022-04-10 09:55 | XMS_ITS | Encounter Summary ---
:2000 Author Organization [place] Address [facility] [place] [address] Care Team Providers Name Role Phone Stephen Sauceda Primary Care Provider Reason for Visit Reason Comments Consult clotting abnormalities Encounter Details Date Type Department Care Team Description 12/17/2018 Office Visit [facility] Halina Yoder Nontraum atic psoas hematoma (Primary Dx); [facility] Pediatric MD Marisabel S/P Fontan procedure [facility] [address] [place] [address] [place] [address] Social History Tobacco Use Types [...] Pressure - - Pulse - - Temperature 36.6 ??C (97.9 ??F) 12/17/2018 8:55 AM CDT Respiratory Rate 18 12/17/2018 8:55 AM CDT Oxygen Saturation - - Inhaled Oxygen Concentration - - Weight 62.5 kg (137 lb 12.6 oz) 12/17/2018 8:55 AM CDT Height 162.5 cm (5' 3.98) 12/17/2018 8:55 AM CDT Body Mass Index 23.67 12/17/2018 8:55 AM CDT Body Mass Index Percentile 65.33 % 12/17/2018 8:55 AM CD T Growth Chart: [facility] (Boys, 2-20 Years) documented in this encounter Patient Instructions Patient InstructionsHalina Yoder MD - 12/17/2018 9:00 AM CDT Follow up after lab testing in January following completion of antibiotics documented in this encounter Progress Notes Halina Yoder MD - 01/06/2019 10:12 AM CDT Service Date: 12/17/2018 December 17, 2018 [place] [address] RE: Jude Bills : [address] Juarez: Thank you for your referral of Jude Bills for consultation regarding his possible coagulopathy. As you recall, Jude has a very complex past medical history. 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 He originally had a central shunt performed followed by a Fortino and a Fontan. His Fontan fenestration was closed in 2006. He has had atrial tachycardia as wellas symptoms of Fontan dysfunction. He developed significant pain in his thigh which worsened to the point he could not walk and was diagnosed as having a right psoas hematoma in 08/2018. He has been off his warfarin since then. He is not having any symptoms and is not on any blood thinners. He still complains of nosebleeds which only last a couple minutes and some gum bleeding. He is currently not lifting heavy weights as the concern was that the psoas muscle may be torn and caused the hematoma. He was originally evaluated at the age of around [age] years of age when he developed rebleeding with acircumcision. He was given vitamin K and things improved. He also had some bleeding and fluid under his scalp when he was approximately 4 years of age. 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 PAST MEDICAL HISTORY: As noted above. Jude is adopted. As noted, he is status post Fontan. The fenestration has been closed and despite his arrhythmias he does not have a pacemaker. 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 REVIEW OF SYSTEMS: Danielle takes a lot of medications. Per mom, he needs a ZIO- Patch because his heart is bugging him. He currently has an infection in his arm and is on 2 antibiotics. The thought was a cellulitis developed around an insect bite. No tick was noted, but they question another type of bug bite. He did get 1 dose of IV Rocephin and is currently on doxycycline and cephalexin. He takes numerous antihistamines with allergies to grass, pollen, and ragweed. His diet is decent. He does not drink enough water. He is on Prilosec for reflux. He has occasional headaches. He does not have any protein-losing enteropathy. His weight gain is static. SOCIAL HISTORY: Jude has finished the 12th grade. He is hoping to go to [employer]. FAMILY HISTORY: Unknown as Jude is adopted. MEDICATIONS: Current Outpatient Medications Medication ??? acetaminophen (TYLENOL) 500 MG tablet ??? Escitalopram Oxalate (LEXAPRO PO) ??? metoprolol succinate ER (TOPROL-XL) 25 MG 24 hr tablet ??? montelukast (SINGULAIR) 10 MG tablet ??? sildenafil (REVATIO) 20 MG tablet ??? spironolactone (ALDACTONE) 25 MG tablet ??? traZODone (DESYREL) 50 MG tablet ??? DIGOX 250 MCG tablet ??? furosemide (LASIX) 20 MG tablet ??? omeprazole (PRILOSEC) [address] jules No current facility-administered medications for this visit. PHYSICAL EXAMINATION: VITAL SIGNS: Vitals: Temp 97.9 ??F (36.6 ??C) (Oral) Resp 18 Ht 1.625 m (5' 3.98) Wt 62.5 kg (137 lb 12.6 oz) BMI 23.67 kg/m?? BMI= Body mass index is 23.67 kg/m??. Jude was well muscled, well-developed and well-nourished. He was cooperative with the exam. HEENT was unremarkable. He had no significant adenopathy. His chest was clear without crackles or wheezes. He had a well-healed sternotomy scar. He had a normal S1 and S2 with a systolic ejection murmur at the left upper sternal border. His pulses were full in all extremities. He had no edema and good capillary refill. His abdomen was soft and nontender with no hepatosplenomegaly, no mass, normal bowel sounds, no tenderness. Musculoskeletal exam was unremarkable with the exception of a resolving cellulitis in the left forearm. The extent of the erythema is much less than it was 2 nights ago. There is some slightly violaceous discoloration at the center of the otherwise mildly erythematous plaque. There is no limitation to range of motion and there is minimal pain with palpation. The remainder of his musculoskeletal exam is unremarkable. A/P Jude certainly could have coagulopathy from a number of etiologies. However, trying to study him in the midst of an acute infection is not likely to be helpful as elevated or diminished factor levels could be identified relative to the infection and/or the double antibiotics. He is planning on being back to clinic sometime in January and we will put in labs for future draw. He will subsequently see meon 03/11/2019. If there are other questions or concerns in the interim, please do not hesitate to call or contact me. Sincerely, MD HALINA Fernandez MD MT: CARTER Name: JUDE BILLS Account: [id number] : 2000 Service Date: 12/17/2018 Document: [id number] documented in this encounter Nursing Notes Court Bell LPN - 12/17/2018 9:00 AM CDT Chief Complaint Patient presents with ??? Consult clotting abnormalities Vitals: 12/17/18 0855 Resp: 18 Temp: 97.9 ??F (36.6 ??C) TempSrc: Oral Weight: 137 lb 12.6 oz (62.5 kg) Height: 5' 3.98 (162.5 cm) Court Bell LPN December 17, 2018 documented in this encounter Plan of Treatment Upcoming Encounters Date Type Specialty Care Team Description 07/27/2022 Ancillary Procedure Cardiology Cordell Juarez MD [address] [facility] [address] [place] [address] (Wo rk) 07/27/2022 Office Visit Cardiology Cordell Juarez MD [address] [place] [address] (Wo rk) documented as of this encounter Visit Diagnoses Diagnosis Nontraumatic psoas hematoma - Primary Nontraumatic hematoma of soft tissue S/P Fontan procedure Other postprocedural status documented in this encounter Care Teams Last Turner Relationship Specialty Start Date End Date Stephen Sauceda PCP - General Pediatrics 03/06/17 06/24/19 [facility] [address] [place] [address] documented as of this encounter
--- OUTSIDE RECORDS SUMMARY | 2022-04-10 09:55 | XMS_ITS | Encounter Summary ---
:2000 Author Organization [place] Address [address] [place] [id number] Care Team Providers Name Role Phone Stephen Sauceda Primary Care Provider Encounter Details Date Type Department Care Team Description 03/23/2019 Travel Social History Tobacco Use Types Packs/Day [...] 07/27/2022 Ancillary Procedure Cardiology Cordell Juarez MD [address] [place] [id number] (Wo rk) 07/27/2022 Office Visit Cardiology Cordell Juarez MD [address] [place] [phone] (Wo rk) documented as of this encounter Visit Diagnoses Not on filedocumented in this encounter Care Teams Optimization Manager Relationship Specialty Start Date End Date Komal, Stephen J PCP - General Pediatrics 03/06/17 06/24/19 [facility] [address] [place] [address] documented as of this encounter
--- OUTSIDE RECORDS SUMMARY | 2022-04-10 09:55 | XMS_ITS | Encounter Summary ---
:2000 Author Organization [place] Address [address] [place] [address] Care Team Providers Name Role Phone Komal, Stephen Grant Primary Care Provider Encounter Details Date Type Department Care Team Description 03/23/2019 Orders Only [facility] S/P Fontan procedure; [facility] Atrial tachycardia (H) [address] [place] [address] Social History Tobacco Use Types Packs/Day Years Used Date Smoking Tobacco: Never Smokeless Tobacco: Never Comments: none at home Alcohol Use Standard Drinks/Week Comments No 0 (1 standard drink = 0.6 oz pure alcoho l) Sex Assigned at Date Recorded Male 03/09/2019 1:21 PM CDT documented as of this encounter Miscellaneous Notes Addendum Note - Jennifer Wood - 03/23/2019 3:00 PM CDT Addended by: JENNIFER WOOD on: 03/23/2019 03:02 PM Modules accepted: Orders documented in this encounter Plan of Treatment Upcoming Encounters Date Type Specialty Care Team Description 07/27/2022 Ancillary Procedure Cardiology Larry, Cordell Barajas MD [address] [facility] [address] [place] [address] (Wo rk) 07/27/2022 Office Visit Cardiology Larry, Cordell skelton MD [address] [place] [address] (Wo rk) documented as of this encounter Procedures Procedure Name Priority Date/Time Associated Comments Diagnosis UA MACROSCOPIC WITH Routine 03/23/2019 2:50 PM Atrial tachycar divya Results for this REFLEX TO MICRO CDT (H) procedure ar e in the results section. CBC WITH PLATELETS & Routine 03/23/2019 2:47 PM S/P Fontan R esults for this DIFFERENTIAL CDT procedure procedure are i n the results section. COMPREHENSIVE Routine 03/23/2019 2:47 PM S/P Fontan Results for this METABOLIC PANEL CDT procedure procedure ar e in the results section. documented in this encounter Results UA reflex to Microscopic (03/23/2019 2:50 PM CDT) [facility] Method Time Signature Color Urine Yellow 03/23/2019 [facility] 3:46 PM CDT [facility] [place] Appearance Urine Clear 03/23/2019 [facility] 3:46 PM [facility]T [facility] [place] Glucose Urine Negative NEG^Negat 03/23/2019 [facility] colleen mg/dL 3:46 PM CDT [facility] [place] Bilirubin Urine Negative NEG^Negat 03/23/2019 [facility] colleen 3:46 PM CDT [facility] [place] Ketones Urine Negative NEG^Negat 03/23/2019 [facility] colleen mg/dL 3:46 PM CDT [facility] [place] Specific [place] 1.025 1.003 - 03/23/2019 [facility] Urine 1.035 3:46 PM CDT [facility] [place] Blood Urine Negative NEG^Negat 03/23/2019 [facility] colleen 3:46 PM CDT [facility] [place] pH Urine 6.0 5.0 - 7.0 03/23/2019 [facility] pH 3:46 PM CDT [facility] [place] Protein Albumin Negative NEG^Negat 03/23/2019 [facility] Urine colleen mg/dL 3:46 PM CDT [facility] [place] Urobilinogen 0.2 0.2 - 1.0 03/23/2019 [place] Urine EU/dL 3:46 PM CDT [facility] Nitrite Urine Negative NEG^Negat 03/23/2019 [facility] colleen 3:46 PM CDT [facility] Leukocyte Negative NEG^Negat 03/23/2019 [facility] Esterase Urine colleen 3:46 PM CDT [facility] Source Midstream 03/23/2019 [facility] Urine 3:07 PM CDT [facility] Specimen (Source) Anatomical Collection Method Collection Time Re ceived Time Location / / Volume Laterality Examination of 03/23/2019 2:50 03/23/2019 3:07 midstream urine PM CDT PM CDT specimen (procedure) Cordell Juarez MD LAB - URINE ORDERABLES Performing Organization Address City/State/ZIP Code Phon e Number [facility] [id number] [place] [address] Comprehensive metabolic panel (03/23/2019 2:47 PM CDT) P athologist Signature Sodium 139 133 - 144 03/24/2019 [facility] mmol/L 12:49 PM CDT [facility] Potassium 4.2 3.4 - 5.3 03/24/2019 [place] mmol/L 12:49 PM CDT [facility] Chloride 106 98 - 110 03/24/2019 [place] mmol/L 12:49 PM CDT [facility] Carbon Dioxide 29 20 - 32 03/24/2019 [facility] mmol/L 12:55 PM CDT [facility] Anion Gap 4 3 - 14 03/24/2019 [place] mmol/L 12:55 PM CDT [facility] Glucose 75 70 - 99 03/24/2019 [place] mg/dL 12:55 PM CDT [facility] Urea Nitrogen 26 7 - 30 03/24/2019 [place] mg/dL 12:55 PM CDT [facility] Creatinine 0.88 0.50 - 03/24/2019 [facility] 1.00 mg/dL 12:55 PM CDT [facility] GFR Estimate >90 >60 03/24/2019 [place] mL/min/{1. 12:55 PM CDT [facility] 73_m2} [facility] Comment: Non GFR Calc Starting 06/03/2018, serum creatinine ba sed estimated GFR (eGFR) will be calculated using the Chronic Kidney Dise [facility] Epidemiology Collaboration (CKD-EPI) equation. GFR Estimate If >90 >60 mL/min/{1.73_m2} 03/24/2019 12 :55 PM [facility] Black [facility] Comment: GFR Calc Starting 06/03/2018, serum creatinine ba sed estimated GFR (eGFR) will be calculated using the Chronic Kidney Dise [facility] Epidemiology Collaboration (CKD-EPI) equation. Calcium 9.2 8.5 - 10.1 03/24/2019 12:55 PM [facility] mg/dL [facility] Bilirubin Total 1.1 0.2 - 1.3 mg/dL 03/24/2019 12:57 P M [facility] Albumin 4.7 3.4 - 5.0 g/dL 03/24/2019 12:57 PM [facility] Protein Total 7.9 6.8 - 8.8 g/dL 03/24/2019 12:57 PM [facility] Alkaline Phosphatase 77 65 - 260 U/L 03/24/2019 12:57 PM [facility] ALT 30 0 - 50 U/L 03/24/2019 12:57 PM [facility] AST 23 0 - 35 U/L 03/24/2019 12:57 PM [facility] Specimen Anatomical Collection Method Collection Time Receive d Time (Source) Location / / Volume Laterality Blood specimen 03/23/2019 2:47 PM 019 2:50 (specimen) CDT PM CDT Cordell Juarez MD LAB - BLOOD ORDERABLES Performing Organization Address City/State/ZIP Code Phon e Number [facility] [address] [place] [address] CBC with platelets differential (03/23/2019 2:47 PM CDT) [facility] Method Time Signature WBC 6.2 4.0 - 03/23/2019 [place] 11.0 3:08 PM T [facility] 10e9/L [place] RBC Count 5.89 4.4 - 5.9 03/23/2019 [place] 10e12/L 3:08 PM CDT [facility] [place] Hemoglobin 17.2 13.3 - 03/23/2019 [facility] 17.7 g/dL 3:08 PM CDT [facility] [place] Hematocrit 49.7 40.0 - 03/23/2019 [facility] 53.0 % 3:08 PM CDT [facility] [place] MCV 84 78 - 100 03/23/2019 [facility] fl 3:08 PM CDT [facility] [place] MCH 29.2 26.5 - 03/23/2019 [facility] 33.0 pg 3:08 PM CDT [facility] [place] MCHC 34.6 31.5 - 03/23/2019 [facility] 36.5 g/dL 3:08 PM CDT [facility] [place] RDW 13.3 10.0 - 03/23/2019 [facility] 15.0 % 3:08 PM CDT [facility] [place] Platelet Count 178 150 - 450 03/23/2019 [facility] 10e9/L 3:08 PM CDT [facility] [place] % Neutrophils 69.6 % 03/23/2019 [facility] 3:08 PM CDT [facility] [place] % Lymphocytes 19.2 % 03/23/2019 [facility] 3:08 PM CDT [facility] [place] % Monocytes 9.8 % 03/23/2019 [facility] 3:08 PM CDT [facility] [place] % Eosinophils 1.1 % 03/23/2019 [facility] 3:08 PM CDT [facility] [place] % Basophils 0.3 % 03/23/2019 [facility] 3:08 PM CDT [facility] [place] Absolute 4.3 1.6 - 8.3 03/23/2019 [facility] Neutrophil 10e9/L 3:08 PM CDT [facility] [place] Absolute 1.2 0.8 - 5.3 03/23/2019 [facility] Lymphocytes 10e9/L 3:08 PM CDT [facility] [place] Absolute 0.6 0.0 - 1.3 03/23/2019 [facility] Monocytes 10e9/L 3:08 PM CDT [facility] [place] Absolute 0.1 0.0 - 0.7 03/23/2019 [facility] Eosinophils 10e9/L 3:08 PM CDT [facility] [place] Absolute 0.0 0.0 - 0.2 03/23/2019 [facility] Basophils 10e9/L 3:08 PM CDT [facility] [place] Diff Method Automated 03/23/2019 [facility] Method 3:08 PM CDT [facility] Specimen Anatomical Collection Method Collection Time Receive d Time (Source) Location / / Volume Laterality Blood specimen 03/23/2019 2:47 PM 019 2:50 (specimen) CDT PM CDT Cordell Juarez MD LAB - BLOOD ORDERABLES Performing Organization Address City/State/ZIP Code Phon e Number [facility] [id number] [place] [address] documented in this encounter Visit Diagnoses Diagnosis S/P Fontan procedure Other postprocedural status Atrial tachycardia (H) Other specified cardiac dysrhythmias documented in this encounter Care Teams Associate Media Director Relationship Specialty Start Date End Date Stephen Sauceda PCP - General Pediatrics 03/06/17 06/24/19 [facility] [address] [place] [address] documented as of this encounter
--- OUTSIDE RECORDS SUMMARY | 2022-04-10 09:55 | XMS_ITS | Encounter Summary ---
:2000 Author Organization [place] Address [address] [place] [address] Care Team Providers Name Role Phone Stephen Sauceda Primary Care Provider Reason for Referral CV Testing (Routine) - Closed Specialty Diagnoses / Procedures Referred By Contact Refer red To Contact Cardiology Diagnoses S/P Fontan procedure [facility] C[facility] Rh Cv Cardiac Svc Rscc Procedures Echo Congenital Adult HC ECHO XTHORACIC,NEHEMIAS ANOM,COMPLETE HC ECHO CONGENITAL W/CONTRAST HC ECHO CONGENITAL W/O CONTRAST HC DOPPLER ECHO PULSED, COMPLETE HC DOPPLER ECHO COLOR FLOW VELOCITY MAP [address] [place] [id number] [place] [address] HC STATISTIC IV PUSH SINGLE [place] [address] [address] [place] [address] Phone: Fax: Referral ID Status Reason Start Date Expiration Date Visits Requ ested Visits Authorized [id number] Closed 01/21/2019 01/21/2020 1 1 (Routine) - Closed Specialty Diagnoses / Procedures Referred By Contact Refer red To Contact Diagnoses S/P Fontan procedure [facility] [address] [place], [place] [phone] Referral ID Status Reason Start Date Expiration Date Visits Requ ested Visits Authorized [id number] Closed 01/21/2019 01/21/2020 1 1 Reason for Visit Reason Comments Orders Encounter Details Date Type Department Care Team Description 01/21/2019 Care Coordination [facility] Arthur Snyder RN Orders [facility] [place] [address] [place] [address] Social History Tobacco Use Types [...] 07/27/2022 Ancillary Procedure Cardiology Cordell Juarez MD [facility] [place] [address] [place] [address] [address] (Wo rk) 07/27/2022 Office Visit Cardiology Cordell Juarez MD [address] [place] [address] [address] (Wo rk) Scheduled Referrals Name Type Priority Associated Diagnoses Order S chedule Adult Congenital and CV Referral Routine S/P Fontan proced ure Expected: 02/21/2019 [facility]etics Clinic (Approximate ), Expires: 2019 documented as of this encounter Results ECHO CONGENITAL ADULT (TTE) (09/09/2020 9:22 AM CDT) Anatomical Region Laterality Modality Echocardiography Specimen (Source) Anatomical Collection Method Collection Time Re ceived Time Location / / Volume Laterality 09/09/2020 9:02 AM CDT Narrative 09/09/2020 9:38 AM CDT [id number]^JAVIER^CORDELL^RYAN ? Study ID: [id number] ?[facility] ?[facility] ?[address] ?[place] [address] ? Pediatric Echocardiogram Name: JUDE BILLS Study Date: 09/09/2020 09:02 AM ?Patient Location: [...] note might be different from the original. [id number]^JAVIER^CORDELL^RYAN Study ID: [id number] [facility] [place] [address] Pediatric Echocardiogram Name: RENÉCHRISJAMIE Marquis Study Date: 09/09/2020 09:02 AM Patient Location: [facility] Age: 20 yrs : 2000 BP: 117/72 mmHg Gender: Male Patient Class: Outpatient Height: 162 cm Ordering Provider: CORDELL JUAREZ ght: 64 kg Referring Provider: CORDELL JUAREZ BS A: 1.7 m2 Performed By: Kiel Lucero, LUKE Report approved by: Abi Zaldivar MD Reason [...] AM Cordell Juarez MD CV ECHO ORDERABLES CBC with platelets differential (03/23/2019 2:47 PM CDT) [employer] Method Time Signature WBC 6.2 4.0 - 03/23/2019 [facility] 11.0 3:08 PM CDT [facility] 10e9/L [place] RBC Count 5.89 4.4 - 5.9 03/23/2019 [facility] 10e12/L 3:08 PM CDT [facility] [place] Hemoglobin 17.2 13.3 - 03/23/2019 [facility] 17.7 g/dL 3:08 PM CDT [facility] [place] Hematocrit 49.7 40.0 - 03/23/2019 [facility] 53.0 % 3:08 PM CDT [facility] [place] MCV 84 78 - 100 03/23/2019 [facility] fl 3:08 PM CDT [facility] [place] MCH 29.2 26.5 - 03/23/2019 [facility] 33.0 pg 3:08 PM CDT [facility] [place] MCHC 34.6 31.5 - 03/23/2019 [facility] 36.5 g/dL 3:08 PM CDT [facility] [place] RDW 13.3 10.0 - 03/23/2019 [facility] 15.0 % 3:08 PM CDT [facility] [place] Platelet Count 178 150 - 450 03/23/2019 [facility] 10e9/L 3:08 PM CDT [facility] % Neutrophils 69.6 % 03/23/2019 [facility] 3:08 PM CDT [facility] [place] % Lymphocytes 19.2 % 03/23/2019 [facility] 3:08 PM CDT [facility] [place] % Monocytes 9.8 % 03/23/2019 [facility] 3:08 PM CDT [facility] [place] % Eosinophils 1.1 % 03/23/2019 [facility] 3:08 PM CDT [facility] [place] % Basophils 0.3 % 03/23/2019 [facility] 3:08 PM CDT [facility] [place] Absolute 4.3 1.6 - 8.3 03/23/2019 [facility] Neutrophil 10e9/L 3:08 PM CDT [facility] [place] Absolute 1.2 0.8 - 5.3 03/23/2019 [facility] Lymphocytes 10e9/L 3:08 PM CDT [facility] [place] Absolute 0.6 0.0 - 1.3 03/23/2019 [facility] Monocytes 10e9/L 3:08 PM CDT [facility] [place] Absolute 0.1 0.0 - 0.7 03/23/2019 [facility] Eosinophils 10e9/L 3:08 PM CDT [facility] [place] Absolute 0.0 0.0 - 0.2 03/23/2019 [facility] Basophils 10e9/L 3:08 PM CDT [facility] [place] Diff Method Automated 03/23/2019 [facility] Method 3:08 PM CDT [facility] [place] Specimen Anatomical Collection Method Collection Time Receive d Time (Source) Location / / Volume Laterality Blood specimen 03/23/2019 2:47 PM 019 2:50 (specimen) CDT PM CDT Cordell Juarez MD LAB - BLOOD ORDERABLES Performing Organization Address City/State/ZIP Code Phon e Number [facility] [address] [place] [address] Comprehensive metabolic panel (03/23/2019 2:47 PM CDT) athologist Signature Sodium 139 133 - 144 03/24/2019 [facility] mmol/L 12:49 PM CDT [facility] Potassium 4.2 3.4 - 5.3 03/24/2019 [place] mmol/L 12:49 PM CDT [facility] Chloride 106 98 - 110 03/24/2019 [facility] mmol/L 12:49 PM CDT [facility] Carbon Dioxide 29 20 - 32 03/24/2019 [place] mmol/L 12:55 PM CDT [facility] Anion Gap 4 3 - 14 03/24/2019 [facility] mmol/L 12:55 PM CDT [facility] Glucose 75 70 - 99 03/24/2019 [place] mg/dL 12:55 PM CDT [facility] Urea Nitrogen 26 7 - 30 03/24/2019 [place] mg/dL 12:55 PM CDT [facility] Creatinine 0.88 0.50 - 03/24/2019 [facility] 1.00 mg/dL 12:[address] [facility] GFR Estimate >90 >60 03/24/2019 [facility] mL/min/{1. 12:55 PM CDT CLINICS 73_m2} [facility] Comment: Non GFR Calc Starting 06/03/2018, serum creatinine ba sed estimated GFR (eGFR) will be calculated using the Chronic Kidney Dise ase Epidemiology Collaboration (CKD-EPI) equation. GFR Estimate If >90 >60 mL/min/{1.73_m2} 03/24/2019 12 :55 PM [facility] Black T [facility] Comment: GFR Calc Starting 06/03/2018, serum creatinine ba sed estimated GFR (eGFR) will be calculated using the Chronic Kidney Dise ase Epidemiology Collaboration (CKD-EPI) equation. Calcium 9.2 8.5 - 10.1 03/24/2019 12:55 PM [facility] mg/dL T [facility] Bilirubin Total 1.1 0.2 - 1.3 mg/dL 03/24/2019 12:57 [facility] Albumin 4.7 3.4 - 5.0 g/dL 03/24/2019 12:57 PM [facility] Protein Total 7.9 6.8 - 8.8 g/dL 03/24/2019 12:57 PM [facility] Alkaline Phosphatase 77 65 - 260 U/L 03/24/2019 12:57 [address] [facility] ALT 30 0 - 50 U/L 03/24/2019 12:57 [address] [facility] AST 23 0 - 35 U/L 03/24/2019 12:[address] [facility] Specimen Anatomical Collection Method Collection Time Receive d Time (Source) Location / / Volume Laterality Blood specimen 03/23/2019 2:47 PM 019 2:50 (specimen) CDT PM CDT Cordell Juarez MD LAB - BLOOD ORDERABLES Performing Organization Address City/State/ZIP Code Phon e Number [facility] [address] [place] [address] documented in this encounter Visit Diagnoses Diagnosis S/P Fontan procedure - Primary Other postprocedural status S/P Fontan procedure Other postprocedural status documented in this encounter Care Teams Rubber Mixer Relationship Specialty Start Date End Date Stephen Sauceda PCP - General Pediatrics 03/06/17 06/24/19 [facility] [address] [place] [address] documented as of this encounter
--- OUTSIDE RECORDS SUMMARY | 2022-04-10 09:55 | XMS_ITS | Encounter Summary ---
:2000 Author Organization [place] Address [facility] [place] [address] Care Team Providers Name Role Phone KomalStephen Primary Care Provider [facility] Primary Care Provider [phone] Magnus Zayas DO Primary Care Provider [phone] Magnus Zayas DO Unavailable [phone] Celeste Scales MD Unavailable Magnus Zayas DO Unavailable Magda Winchester MD Primary Care Provider Reason for Visit Reason Onset Date Comments Refill Request 03/02/2019 Encounter Details Date Type Department Care Team Description 03/02/2019 Refill [facility] Pediatric Larry Cordell MD Refill Request Specialty Clinic [facility] [address] [facility] MB556 [address] [facility] [address] [address] [address] [place] [address] [phone] Social History Tobacco Use Types Packs/Day Years [...] Ancillary Procedure Cardiology Cordell Juarez MD [address] [facility]6 [place], [place] [address] (Wo rk) 07/27/2022 Office Visit Cardiology Cordell Juarez MD [address] [facility] [place], [place] [address] (Wo rk) documented as of this encounter Visit Diagnoses Not on filedocumented in this encounter Additional Health Concerns Infection Onset Date Last Indicated Resolved Time Rule Out COVID-19 12/18/2019 12/18/2019 12/19/2019 3:4 2 PM CDT Rule Out COVID-19 12/21/2019 12/21/2019 12/22/2019 2:3 2 AM CDT documented as of this encounter Care Teams Bleach Mixer Relationship Specialty Start Date End Date Stephen Sauceda PCP - General Pediatrics 03/06/17 06/24/19 [facility] [address] [place] [address] [facility] PCP - General 06/25/19 02/22/20 [address] [place] [address] Magnus Zayas, PCP - General Student in [facility] 02/23/20 09/17/[address] education/training program [address] [place] [address] Magda Winchester PCP - General Family Medicine 09/18/21 MD [place] Magnus Zayas, Assigned PCP 02/28/2004/[address] [address] Celeste Scales MD Assigned PCP 11/10/20 11/19/[address] [id number] Magnus Zayas, Assigned PCP 11/20/[address] [place] [phone] documented as of this encounter
--- OUTSIDE RECORDS SUMMARY | 2022-04-10 09:55 | XMS_ITS | Encounter Summary ---
:2000 Author Organization [place] Address [address] [place] [address] Care Team Providers Name Role Phone Stephen Sauceda Primary Care Provider Encounter Details Date Type Department Care Team Description 05/25/2019 Travel Social History Tobacco Use Types Packs/Day [...] 07/27/2022 Ancillary Procedure Cardiology Cordell Juarez MD [address] [place] [address] (Wo rk) 07/27/2022 Office Visit Cardiology Cordell Juarez MD [address] [place] [phone] (Wo rk) documented as of this encounter Visit Diagnoses Not on filedocumented in this encounter Additional Health Concerns Assessment Noted Time PHQ-9 Depression Total Score: 10 04/01/2019 9:14 AM CD T documented as of this encounter Care Teams Enrichment Assistant Relationship Specialty Start Date End Date Stephen Sauceda PCP - General Pediatrics 03/06/17 06/24/19 [facility] [address] [place] [address] documented as of this encounter
--- OUTSIDE RECORDS SUMMARY | 2022-04-10 09:55 | XMS_ITS | Encounter Summary ---
:2000 Author Organization [place] Address [address] [facility] [place] [address] Care Team Providers Name Role Phone KomalStephen Primary Care Provider [facility] Primary Care Provider [phone] Magnus Zayas DO Primary Care Provider [phone] Magnus Zayas DO Unavailable [phone] Celeste Scales MD Unavailable Magnus Zayas DO Unavailable [phone] Magda Winchester MD Primary Care Provider Reason for Referral (Routine) [...] DOPPLER ECHO PULSED, F/U OR LIMITED [address] [facility] MB[address] HC DOPPLER ECHO COLOR [place] [address] [place] [address] Phone: Referral ID Status Reason Start Date Expiration Date Visits Requ ested Visits Authorized [id number] Closed 04/01/2019 03/31/2020 1 1 Encounter Details Date Type Department Care Team Description 04/01/2019 Orders Only [facility] Cordell Juarez, S/P Fontan procedure Pediatric Specialty (Primary Dx) Clinic [address] [address] [address] [place], [place] [address] [phone] Social History Tobacco Use Types Packs/Day Years [...] 07/27/2022 Ancillary Procedure Cardiology Cordell Juarez MD [address] [place] [address] (Wo rk) 07/27/2022 Office Visit Cardiology Cordell Juarez MD [address] [place] [address] (Wo rk) documented as of this encounter Results ECHO PEDIATRIC CONGENITAL (04/01/2019 10:29 AM CDT) Anatomical Region Laterality Modality Echocardiography Specimen (Source) Anatomical Collection Method Collection Time Re ceived Time Location / / Volume Laterality 04/01/2019 10:13 AM CDT Narrative 04/01/2019 11:02 AM CDT [id number]^JAVIER^AYLIN ?Study ID: [id number] ?[facility] ?[facility] ?[address] ?[place] [address] ? Pediatric Echocardiogram __ Name: JUDE BILLS [...] note might be different from the original. [id number]^JAVIER^CORDELL^RYAN Study ID: [id number] [facility] [place] [id number] Pediatric Echocardiogram __ Name: JUDE BILLS Study Date: 04/01/2019 10:13 AM Patient Location: [facility] Age: 19 yrs : 2000 BP: 108/70 mmHg Gender: Male Patient Class: Outpatient Height: 163 cm Ordering Provider: CORDELL JUAREZ Weight: 6 3 kg Referring Provider: CORDELL JUAREZ A: 1.7 m2 Performed By: Lucina Vanegas [...] documented as of this encounter Care Teams Patients Transporter Relationship Specialty Start Date End Date Stehpen Sauceda PCP - General Pediatrics 03/06/17 06/24/[address] [address] [facility] PCP - General 06/25/19 02/22/[address] [place] [address] Magnus Zayas, PCP - General Student in [facility] [facility] 02/23/20 09/17/[address] education/training program [address] [place] [address] Magda Winchester PCP - General Family Medicine 09/18/21 MD [place] Magnus Zayas, Assigned PCP 02/28/2004/[address] [place], [place] [address] Celeste Scales MD Assigned PCP 11/10/20 11/19/[address] [place] [phone] Magnus Zayas, Assigned PCP 11/20/20 DO [address] [facility] 284 [place], [place] [phone] documented as of this encounter
--- OUTSIDE RECORDS SUMMARY | 2022-04-10 09:55 | XMS_ITS | Encounter Summary ---
:2000 Author Organization [place] Address [facility] [place] [address] Care Team Providers Name Role Phone KomalStephen Primary Care Provider [facility] Primary Care Provider Magnus Zayas DO Primary Care Provider [phone] Magnus Zayas DO Unavailable [phone] Celeste Scales MD Unavailable Magnus Zayas DO Unavailable [phone] Magda Winchester MD Primary Care Provider Reason for Visit Reason Comments Medication Refill Encounter Details Date Type Department Care Team Description 02/24/[address] [facility] [address] Juarez MD Medication Refill Center [facility] WT704 [address] [place] [address] [address] [place] [address] [phone] Social History Tobacco Use Types Packs/Day Years [...] Cordell Juarez MD [address] [place], [place] [address] (Wo rk) 07/27/2022 Office Visit Cardiology Cordell Juarez MD [address] [place], [place] [address] (Wo rk) documented as of this encounter 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 Additional Health Concerns Infection Onset Date Last Indicated Resolved Time Rule Out COVID-19 12/18/2019 12/18/2019 12/19/2019 3:4 2 PM CDT Rule Out COVID-19 12/21/2019 12/21/2019 12/22/2019 2:3 2 AM CDT documented as of this encounter Care Teams Field Insurance Sales Manager Relationship Specialty Start Date End Date Stephen Sauceda PCP - General Pediatrics 03/06/17 06/24/19 [facility] [address] [place] [address] [facility] PCP - General 06/25/19 02/22/[address] [place] [address] Magnus Zayas, PCP - General Student in [facility] [employer] [facility] 02/23/20 09/17/[address] education/training program [address] [place] [address] Magda Winchester PCP - General Family Medicine 09/18/21 MD [place] Magnus Zayas, Assigned PCP 02/28/2004/06 DO [address] [facility] [address] [place] [address] Celeste Scales MD Assigned PCP 11/10/20 11/19/[address] [address] Magnus Zayas, Assigned PCP 11/20/[address] DO [address] [phone] documented as of this encounter
--- OUTSIDE RECORDS SUMMARY | 2022-04-10 09:55 | XMS_ITS | Encounter Summary ---
:2000 Author Organization [facility] Address [address] [place] [address]. [place] [address] Care Team Providers Name Role Phone Stephen Sauceda Primary Care Provider Reason for Referral Diagnostic Imaging MRI (Routine) - Closed Specialty Diagnoses / Procedures Referred By Contact Refer red To Contact Radiology. Diagnoses S/P Fontan procedure Cordell Juarez MD Ur Mri Procedures MRI Cardiac w/contrast and flow [address] [place] [address] [address] [place] [address] Phone: Referral ID Status Reason Start Date Expiration Date Visits Requ ested Visits Authorized [id number] Closed 04/01/2019 03/31/2020 1 1 Reason for Visit Reason Comments RECHECK S/P Fontan procedure (Routine) - Closed Specialty Diagnoses / Procedures Referred By Contact Refer red To Contact Diagnoses S/P Fontan procedure [facility] [address] [place], [place] [phone] Referral ID Status Reason Start Date Expiration Date Visits Requ ested Visits Authorized [id number] Closed 01/21/2019 01/21/2020 1 1 Encounter Details Date Type Department Care Team Description 04/01/2019 Office Visit Cordell Smith, S/P Fontan procedure; Pediatric Specialty Hypoplastic left heart syndrome Clinic [address] [place] [address] [phone] Social History Tobacco Use Types Packs/Day Years Used Date Smoking Tobacco: Never Smokeless Tobacco: Never Comments: none at home Alcohol Use Standard Drinks/Week Comments No 0 (1 standard drink = 0.6 oz pure alcoho l) Sex Assigned at Date Recorded Male 03/09/2019 1:21 PM CDT documented as of this encounter Last Filed Vital Signs Vital Sign Reading Time Taken Comments Blood Pressure 108/70 04/01/2019 9:18 AM CDT Pulse 70 04/01/2019 9:18 AM CDT Temperature - - Respiratory Rate 18 04/01/2019 9:18 AM CDT Oxygen Saturation 98% 04/01/2019 11:41 AM CDT Inhaled Oxygen Concentration - - Weight 62.6 kg (138 lb 0.1 oz) 04/01/2019 9:18 AM CDT Height 163.6 cm (5' 4.41) 04/01/2019 9:18 AM CDT Body Mass Index 23.39 04/01/2019 9:18 AM CDT documented in this encounter Patient Instructions Patient InstructionsLohrCordell MD - 04/01/2019 10:30 AM CDT You were seen today in the Pediatric Cardiology Clinic Cardiology Providers you saw during your visit: Cordell Juarez MD Chief Complaint: heterotaxy, S/P Fontan. Feeling more fatigued Results: Echo stable with good ventricular function and mild leakage of the AV valves. Normal ECG and 5 day zio patch holter Recommendations: Continue regular exercise Influenza vaccine (getting today at work) Continue cardiac medications - Lasix 20 mg daily Spironolactone 25 mg daily Digoxin 250 mcg daily Metoprolol XL 25 mg daily Sildenafil 20 mg three times daily (2 is better than none) Other meds Please discuss with primary physician Tomas; - continue once daily, discuss with Dr. Sauceda or new physician Trazadone - wean off do not discontinue suddenly Lexipro - Per primary or prescribing physician OK to stay of warfarin SBE prophylaxis: Yes__X__ No____ Amoxicillin 4 pills (2 grams) one hour pruior to dental cleanings Exercise restrictions: Yes_X__ No____ If yes list restrictions: no heavy lifting (must be able to breathe and talk through lifting). Rest when needed Work restrictions: Yes_X__ No____ If yes list restrictions: Access to fluids, no heavy lifting (mustbe able to breathe and talk through lifting). Rest when needed Follow-up: Please schedule cardiac MRI/MRA - [phone] [facility] 4 months with BP and sat check to review MRI Call if any concerns: Dr Juarez's office [phone] Hospital [phone] [facility] marketing education teacher Clinic [phone] Find dentist Find new primary physician IF local- try Jack - Rui Mike Thank you for your visit today. If you have questions about today's visit, please call [facility] clinic at [phone] or [facility] Nurse Line [phone] For after hours urgent needs call [phone] and ask to speak to the Pediatric Cardiology Physician marketing education teacher. For emergencies call [phone]. documented in this encounter Progress Notes Cordell Juarez MD - 04/01/2019 10:30 AM CDT Pediatric Cardiology Visit - Incomplete Patient: Jude Bills Date of : 2000 Age: 16 years 7 months Date of Visit: Apr 01, 2019 PCP: Stephen Sauceda Dear Dr. Sauceda, I had the pleasure of seeing your patient, Jude Bills, in the Pediatric Cardiology Clinic at [facility] on Apr 01, 2019. 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 He had catheter closure of his Fontan fenestration at the [facility] in January 2007. Jude has had some episodes of atrial tachycardia that improved on metoprolol. He has also been treated for chest pain, swelling, and exercise intolerance that improved on low dose lasix, sildenafil and omeprazole. Jude was hospitalized in August of this year was diagnosed with a right psoas hematoma. He was admitted from 08/30 through 09/05/18. HWarfarin was stopped at this visit and heme eval obtained. Lab testinghas not been completed. Jude reports that this has completely resolved. He has not restarted warfarin. In the interim since his last visit Jude has been hospitalized twice for depression. He has moved out of his parents home and his living with a friend. 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 Jude reports that he is still covered by his parents insurance and has access to his medications. He is [planning to transition to a new primary physician, but still sees Dr. Sauceda. He is not cu rrently seeing his other mental health providers. Jude reports reports that the episodes of chest pain and palpitations have been better as he feels occasional chest pain and it seems related to reflux. He also states that his exercise tolerance had been much better prior to the myohematoma, getting almost back to baseline. Currently not very active due to pain and recommended rest. No syncope, no fevers, vomiting, diarrhea, abdominal swelling. 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 Jude is currently in 12th grade and he has an IEP. Planning on going to EMT school after. Prescription Medications as of 04/01/2019 Rx Number Disp Refills Start End Last Dispensed Date Next Fill Date Owning Pharmacy acetaminophen (TYLENOL) 500 MG tablet Sig: Take 500 mg by mouth every 8 hours as needed for mild pain Class: Historical Route: Oral DIGOX 250 MCG tablet 30 tablet 10 12/18/2018 [facility] [address] [place] [address] Sig: TAKE ONE TABLET BY MOUTH ONE TIME DAILY Class: E-Prescribe Escitalopram Oxalate (LEXAPRO PO) Sig: Take 10 mg by mouth daily Class: Historical Route: Oral furosemide (LASIX) 20 MG tablet 15 tablet 0 12/30/2018 [facility] [address] [place] [address] Sig: Take one-half tablet by mouth once daily. Class: E-Prescribe metoprolol succinate ER (TOPROL-XL) 25 MG 24 hr tablet 30 tablet 11 03/24/2019 [facility] [address] [place] [address] Sig: TAKE ONE TABLET BY MOUTH ONE TIME DAILY Class: E-Prescribe montelukast (SINGULAIR) 10 MG tablet 08/28/2018 Sig: Take 10 mg by mouth At Bedtime Class: Historical Route: Oral omeprazole (PRILOSEC) [address] capsule 90 capsule 1 12/18/2018 [facility] [address] [place] [address] Sig: Take 1 capsule (20 mg) by mouth daily TAKE 1 CAPSULE BY MOUTH TWICE DAILY FOR ONE WEEK THEN ONCE DAILY Class: E-Prescribe Route: Oral sildenafil (REVATIO) 20 MG tablet 90 tablet 11 06/21/2017 [facility] [address] [place] [address] Sig: Take 1 tablet (20 mg) by mouth three times daily for pulmonary hypertension. Never use with nitroglycerin, terazosin or doxazosin. Class: E-Prescribe spironolactone (ALDACTONE) 25 MG tablet 30 tablet 10 10/15/2018 [facility] [address] [place] [address] 3 Sig: TAKE ONE TABLET BY MOUTH ONE TIME DAILY Class: E-Prescribe traZODone (DESYREL) 50 MG tablet Sig: Take 50 mg by mouth At Bedtime Class: Historical Route: Oral Taking 20 mg lasix daily FH/SH: Jude and his family live in [place]. His mother is a nurse at [employer]. They are planning lots of travel this summer. He will be starting his senior year next fall. PE: His height is 1.636 m (5' 4.41) and weight is 62.6 kg (138 lb 0.1 oz). His blood pressure is 108/70 and his pulse is 70. His respiration is 18 and oxygen saturation is 93%. His body mass index is 23.39 kg/m??. His body surface area is 1.69 meters squared. In general, he is a very well-appearing young man with no central or peripheral cyanosis. Head and neck examination is unremarkable. Pupils are reactive and sclera are not jaundiced. There is no conjunctival injection or discharge. Mucous membranes are tachy but pink. Neck is supple, some lymphadeopathy. Lungs are clear to auscultation bilaterally. He has a well- healed midline sternotomy scar with a normal S1 and a single S2. He has a grade 2/6 systolic ejection murmur at the left upper sternal border, and no rubs, gallops or diastolic murmurs. Abdominal examination is benign with no hepatosplenomegaly or masses. Radial and femoral pulses are normal and extremities are warm and well perfused with trace edema and good capillary refill, there is greenish/yellowish discoloration over right groin area. Climbs examination table using his right leg. He is oriented and responsive. He moves all extremities equally with normal tone. Zio 06/24/17 - NSR with average HR 65 (35-166). Rare single ectopic beats. No block or tachyarrhythmias. Zio 12 lead ECG today: sinus bradycardia at 55 bpm. RVH with lateral T wave inversion. No significant changes from prior. Labs: Cath Data 01/2016: Fontan pressures 14 mean, PAP 14 mean LV EDP 10 CI 3.1 L/min/m2. CXR 04/28, no acute changes. Fractured inferior sternal wire. Labs: 08/30/18 with alb 4.1, BUN 19 Impression and Plan: Jude is an 18yo male s/p Fontan for heterotaxy, DORV, d-TGA, [...] risk of thomboembolism is been held. He gets colitis with aspirin. We will review with hematology to evaluate anticoagulation therapy. Recommendations: 1.Continue holding warfarin 2. Metoprolol XR 25 mg daily 3. Continue Sildenafil 20 mg tid 4. Continue lasix, digoxin 5. Continue omeprazole for gastritis/pain 6. To ER if sustained arrhythmias, syncope, or new symptoms. 7. Antibiotics for SBE prophylaxis 8. F/U in November with labs, echocardiogram and rhythm monitoring. 9. No exercise restrictions. Stop and rest when fatigued. Drink plenty of non caffeinated fluids. Keep physical therapy appointment 10. Refer to hematology for evaluation for clotting abnormalities off of warfarin. 11. Will get Zio-patch Holter once back to baseline activity level. Sincerely, Sterling Rivers MD Pediatric Seamer [facility] Jude has been on anticoagulation with warfarin for intermittent atrial tachycardia. He has had several clinical bleeding episodes throughout his life. At this time we will hold warfarin and ask hematology to evaluate him for clotting abnormality and overall risk with anticoagulation. We will also place a one week zio monitor when he is back to normal activity. He is overall feeling much better today. I, Cordell Juarez MD, saw this patient with the fellow and agree with the findings and plan of care as documented in this note.I have reviewed this patient's history, examined the patient and reviewed relevant laboratory findings and diagnostic testing. I have discussed the plan of care with the patient and family members who are present at the time of this visit. Cordell Juarez M.D. Equipment Superintendent of Pediatrics Pediatric and Adult Congenital Cardiology [facility] Pediatric Cardiology Office [phone] Adult Congenital Cardiology Triage and Scheduling [phone] EING TORCH OPERATOR documented in this encounter Nursing Notes Kim Summers MA - 04/01/2019 10:30 AM CDT Informant- Jude is accompanied by self Reason for Visit- S/P Fontan procedure Vitals signs- BP 108/70 Pulse 70 Resp 18 Ht 1.636 m (5' 4.41) Wt 62.6 kg (138 lb 0.1 oz) SpO2 93% BMI23.39 kg/m?? There are concerns about the child's exposure to violence in the home: No Face to Face time: 5 minutes Kim Summers MA documented in this encounter Plan of Treatment Upcoming Encounters Date Type Specialty Care Team Description 07/27/2022 Ancillary Procedure Cardiology Cordell Juarez MD [address] [facility] [address] [place] [address] (Wo rk) 07/27/2022 Office Visit Cardiology Cordell Juarez MD [address] [place], [place] [id number] (Wo rk) documented as of this encounter Procedures Procedure Name Priority Date/Time Associated Diagnosis Comme nts RUST ELECTROCARDIOGRAM Routine 04/01/2019 S/P Fontan procedu re Results for this REPORT, SUBSEQUENT - ED proc edure are in ONLY the results section. documented in this encounter Results MRI Cardiac w/contrast and flow (05/25/2019 2:06 PM SINGEING TORCH OPERATOR) Anatomical Region Laterality Modality Cardio, SUBRAD MR BODY, UMP MR CHEST Mag netic Resonance Specimen (Source) Anatomical Location Collection Method / Collectio n Time Received Time / Laterality Volume Impressions 05/25/2019 3:33 PM SINGEING TORCH OPERATOR IMPRESSION: 1. 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 2. Widely patent Fortino and Fontan anasto dyan. 3. Normal biventricular function. 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 He had catheter closure of hi s [...] MD Cordell Juarez MD IMG MRI ORDERABLES ELECTROCARDIOGRAM REPORT (04/01/2019) Narrative This result has an attachment that is no t available. Cordell Juarez MD PROCEDURES documented in this encounter Visit Diagnoses Diagnosis S/P Fontan procedure Other postprocedural status 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 Other postprocedural status documented in this encounter Additional Health Concerns Assessment Noted Time PHQ-9 Depression Total Score: 10 04/01/2019 9:14 AM CD T documented as of this encounter Care Teams Refinery Operator Helper Cracking Unit Relationship Specialty Start Date End Date Stephen Sauceda PCP - General Pediatrics 03/06/17 06/24/19 [facility] [address] [place] [address] documented as of this encounter
--- OUTSIDE RECORDS SUMMARY | 2022-04-10 09:55 | XMS_ITS | Encounter Summary ---
:2000 Author Organization [facility] Address On license of [facility] [place] [address] Care Team Providers Name Role Phone Stephen Sauceda Primary Care Provider Reason for Visit Reason Comments Medication Refill Encounter Details Date Type Department Care Team Description 01/29/2019 Refill [facility] Cordell Juarez MD Medication Refill Explorer Pediatric On license of [facility] [address] [facility] [place], [place] [address] [place] [address] [place] [address] Social History Tobacco Use Types [...] Ancillary Procedure Cardiology Cordell Juarez MD [address] [facility] [place] [address] (Wo rk) 07/27/2022 Office Visit Cardiology Cordell Juarez MD [address] [place] [address] (Wo rk) documented as of this encounter Visit Diagnoses Diagnosis Tachycardia Tachycardia, unspecified documented in this encounter Care Teams Patient Care Technician Instructor Relationship Specialty Start Date End Date Stephen Sauceda PCP - General Pediatrics 03/06/17 06/24/19 [facility] [address] [place] [address] documented as of this encounter
--- OUTSIDE RECORDS SUMMARY | 2022-04-10 09:55 | XMS_ITS | Encounter Summary ---
:2000 Author Organization [place] Address [facility] [place] [address] Care Team Providers Name Role Phone Clinic, [facility] Primary Care Provider [phone] Reason for Visit Reason Comments Flu Symptoms Encounter Details Date Type Department Care Team Description 06/25/2019 Emergency [facility] Camille Bunch MD Influenza Emergency Department [address] [place] [id number] [place] [phone] Social History Tobacco Use Types Packs/Day Years Used Date Smoking Tobacco: Never Smokeless Tobacco: Never Comments: none at home Alcohol Use Standard Drinks/Week Comments No 0 (1 standard drink = 0.6 oz pure alcoho l) Sex Assigned at Date Recorded Male 03/09/2019 1:21 PM CDT documented as of this encounter Last Filed Vital Signs Vital Sign Reading Time Taken Comments Blood Pressure 121/70 06/25/2019 3:44 PM MANAGER INTERNAL Pulse - - Temperature 36.6 ??C (97.9 ??F) 06/25/2019 3:44 PM MANAGER INTERNAL Respiratory Rate 14 06/25/2019 3:44 PM MANAGER INTERNAL Oxygen Saturation 97% 06/25/2019 3:44 PM MANAGER INTERNAL Inhaled Oxygen Concentration - - Weight 64.4 kg (141 lb 15.6 oz) 06/25/2019 11:02 AM MANAGER INTERNAL Height - - Body Mass Index 24.06 04/01/2019 9:18 AM CDT documented in this encounter Discharge Instructions Discharge InstructionsMicky Aguilar MD - 06/25/2019 3:28 PM CST Discharge Information: Emergency Department Jude saw Dr. Aguilar and Dr. Bunch for flu symptoms (influenza). Home Care Make sure he gets plenty to drink. Medicines For fever or pain, Jude can have: Acetaminophen (Tylenol) every 4 to 6 hours as needed (up to 5 doses in 24 hours). His dose is: 2 regular strength tabs (650 mg) (43.2+ kg/96+ lb) Or Ibuprofen (Advil, Motrin) every 6 hours as needed. His dose is: 2 regular strength tabs (400 mg) (40-60 kg/88-132 lb) If necessary, it is safe to give both Tylenol and ibuprofen, as long as you are careful not to give Tylenol more than every 4 hours or ibuprofen more than every 6 hours. Note: If your Tylenol came with a dropper marked with 0.4 and 0.8 ml, call us ([phone]) or check with your doctor about the correct dose. These doses are based on your child???s weight. If you have a prescription for these medicines, the dose may be a little different. Either dose is safe. If you have questions, ask a doctor or pharmacist. When to get help Please return to the Emergency Department or contact his regular doctor if he: feels much worse has trouble breathing appears blue or pale won???t drink can???t keep down liquids goes more than 8 hours without urinating (peeing) has a dry mouth has severe pain is much more irritable or sleepier than usual gets a stiff neck Call if you have any other concerns. In 2 to 3 days, if he is not feeling better, please make an appointment with his primary care provider. Medication side effect information: All medicines may [...] of the medicines we are recommending for Jude are: Acetaminophen (Tylenol, for fever or pain) - Upset stomach or vomiting - Talk to your doctor if you have liver disease Ibuprofen (Motrin, Advil. For fever or pain.) - Upset stomach or vomiting - [facility] use may cause bleeding in the stomach or intestines. See his doctor if he has black or bloody vomit or stool (poop). GER INTERNAL documented in this encounter Medications at Time [...] At Bedtime documented as of this encounter Consult Notes Cordell Herrera MD - 06/25/2019 3:24 PM CST [facility] Consult Note Pediatric cardiology was asked by the ER attending Dr. Bunch to consult on this patient for chest pain associated with sore throat and URI symptoms. 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 Jude has had some episodes of atrial tachycardia that improved on metoprolol. He has also been treated for chest pain, swelling, and exercise intolerance that improved on low dose lasix, sildenafil and omeprazole. He presents today on Day 12 of illness with cough, congestion, sore throat and left sided chest painworsening with inspiration. By report he was diagnosed with influenza B on 06/17, about 5 days into URI symptoms. He was given tamiflu but did not take it. He did have the influenza vaccine. He was started on steroids and felt better for a day or two, but has had worsening symptoms. He has not taken histemp but has had heat waves , worsening left sided chest pain, and sore throat making oral intake difficult. He lives alone and drove himself to parents house today . He is afebrile and has normal VS and saturations in ER. Able to tolerate po. Labs reassuring with neg troponin and baseline echo. Blood culture pending. Mild elevation of WBC. CXR clear with no pneumonia. Impression: Influenza B infection in patient with single ventricle heart disease. No evidence of bacterial suprainfection at present Echo (06/23/2019): No change from prior. Stable function, no vegetation, no new valve leakage. Recommendations: 1. Ok to Discharge home. Jude has agreed to go home and stay with his parents who can monitor him 2. Rest, tylenol. Intermittent ibuprofen OK if needed for discomfort 3. Plenty of fluids, honey or dextromethoraphan for cough (use cautiously with T3) 4. Recommend off work until symptoms improve 5. Taper steroids as per prior to evaluation 6. EBV testing added to labs. 5. Return to ER if worsening respiratory symptoms, high fever, new concerns. Discussed with ER resident, Dr. Aguilar History of Present Illness: Jude presents today on Day 12 of illness with cough, congestion, sore throat and left sided chest pain worsening with inspiration. By report he was diagnosed with influenza B on 06/17, about 5 days into URI symptoms. He was given tamiflu but did not take it. He did have the influenza vaccine. He was started on steroids and felt better for a day or two, but has had worsening symptoms. He has not taken his temp but has had heat waves , worsening left sided chest pain, and sore throat making oral intake difficult. He lives alone and drove himself to parents house today . No orthopnea, edema, LOC. Cannot describe sputum produced. PMH: Past Medical History: Diagnosis Date ??? 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 Congenital anomalies of spleen Polysplenia ??? Esophageal reflux ??? 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 I agree with the findings and recommendations as presented in this note. I have discussed the plan of care with the ER service and patient and family members who are present at the time of the visit.. Cordell Herrera M.D. Brush Holder Inspector of Pediatrics Pediatric and Adult Congenital Cardiology [facility] Pediatric Cardiology Office [phone] Adult Congenital Cardiology Triage and Scheduling [phone] Review of Systems: ROS: 10 point ROS neg other than the symptoms noted above in the HPI. Medications: I have reviewed this patient's current medications ??? sodium chloride ??? sodium chloride (PF) 3 mL Intracatheter Q8H sodium chloride (PF) Physical Exam: Vital Ranges Hemodynamics Temp: [97.4 ??F (36.3 ??C)] 97.4 ??F (36.3 ??C) Heart Rate: [65] 65 Resp: [13-18] 13 BP: (122)/(68) 122/68 SpO2: [93 %-99 %] 99 % Vitals: 06/25/19 1102 Weight: 64.4 kg (141 lb 15.6 oz) Weight change: No intake/output data recorded. General - Tired but comfortable and conversant HEENT - bilat conjunctival injection, MM moist, small bilateral lymphadenopathy of neck Cardiac - RRR with 2/6 SM, no DM, no gallop or rub Respiratory - Good BS bilaterally upper airway congestion, no increased WOB Abdominal - Soft, NT Ext / Skin - No rashes or lesions Neuro - A and O Labs Recent Labs Lab 06/25/19 1221 NA 140 POTASSIUM 3.5 CHLORIDE 106 CO2 27 BUN 23 CR 0.76 GOYO 8.8 Recent Labs Lab 06/25/19 1221 ALBUMIN 4.1 No lab results found in last 7 days. Recent Labs Lab 06/25/19 1221 HGB 16.9 PLT 197 Recent Labs Lab 06/25/19 1221 WBC 11.4* CRP 8.4* Recent Labs Lab 06/25/19 1221 CULT No growth after 1 hour ABGNo results for input(s): PH, PCO2, PO2, HCO3 in the last 168 hours. VBGNo results for input(s): PHV, PCO2V, PO2V, HCO3V in the last 168 hours. GER INTERNAL documented in this encounter ED Notes Kirsten Patel RN - 06/25/2019 11:00 AM CST [facility] pt has been sick for about 12 days. He was diagnosed with flu on 06/17 and started tamiflu. He isstill having difficulty breathing and chest pain. He is on prednisone and tylenol #3 in addition to normal cardiac meds. Dariusz Diaz MD - 06/25/2019 10:51 AM CST History Chief Complaint Patient presents with ??? Flu Symptoms HPI History obtained from patient and mother Jude is a 19 year old male with history of HLHS s/p fontan who presents at 11:04 AM with persistent symptoms from influenza including worsening difficulty breathing, chest pain and throat pain for the past several days. Started having fatigue, cough, congestion and body aches at the end of May. Seen in the [facility] ED on 06/16/19 and diagnosed with influenza B. Was prescribed tamiflu, but did not take any of it. Since then has not really improved. Earlier this week having significant sore throat and difficulty breathing. Also having pain in the center of his chest that he describes as heartpain. Was seen again in the [facility] ED on Friday 06/23. Was given a solumedrol dose pack and tylen ol 3 to use for pain. Since then has continued to have the same symptoms. Some improvement in pain when uses the tylenol 3. No vomiting or diarrhea. Has not been checking temperatures, but has been having heat flashes that he thinks might be fevers. Drinking ok. PMHx: Past Medical History: Diagnosis Date ??? 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 Congenital anomalies of spleen Polysplenia ??? Esophageal reflux ??? 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 [...] as follows: Current Facility-Administered Medications Medication ??? sodium chloride 0.9 % infusion ??? sodium chloride (PF) 0.9% PF flush 0.2-5 mL ??? sodium chloride (PF) 0.9% PF flush 3 mL Current Outpatient Medications Medication ??? acetaminophen (TYLENOL) 500 MG tablet ??? amoxicillin (AMOXIL) 500 MG capsule ??? DIGOX 250 MCG tablet ??? Escitalopram Oxalate (LEXAPRO PO) ??? furosemide (LASIX) 20 MG tablet ??? metoprolol succinate ER (TOPROL-XL) 25 MG 24 hr tablet ??? montelukast (SINGULAIR) 10 MG tablet ??? omeprazole (PRILOSEC) [address] capsule ??? sildenafil (REVATIO) 20 MG tablet ??? spironolactone (ALDACTONE) 25 MG tablet ??? traZODone (DESYREL) 50 MG tablet ALLERGIES: Seasonal allergies IMMUNIZATIONS: UTD by report. SOCIAL HISTORY: Jude lives with on his own. 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 I have reviewed the Medications, Allergies, Past Medical and Surgical History, and Social History inthe [employer] system. Review of Systems Please see HPI for pertinent positives and negatives. All other systems reviewed and found to be negative. Physical Exam BP: 122/68 Heart Rate: 65 Temp: 97.4 ??F (36.3 ??C) Resp: 18 Weight: 64.4 kg (141 lb 15.6 oz) SpO2: 93 % Physical Exam Appearance: Alert and appropriate, well developed, nontoxic, with moist mucous membranes. HEENT: Head: Normocephalic and atraumatic. Eyes: PERRL, EOM grossly intact, conjunctivae and scleraeclear. Ears: Tympanic membranes clear bilaterally, without inflammation or effusion. Nose: Nares congested, no active drainage. Mouth/Throat: No oral lesions, pharynx erythematous, tonsils 2+ with minimal exudate. Neck: Supple, no masses, no meningismus. No significant cervical lymphadenopathy. Pulmonary: No grunting, flaring, retractions or stridor. Good air entry, coarse throughout, no focalcrackles or wheeze. Cardiovascular: Regular rate and rhythm, normal S1 and single S2, with no murmurs. Normal symmetric peripheral pulses and brisk cap refill. Abdominal: Soft, nontender, nondistended, with no masses and no hepatosplenomegaly. Neurologic: Alert and oriented, cranial nerves II-XII grossly intact, moving all extremities equallywith grossly normal coordination and normal gait. Extremities/Back: No deformity. Skin: No significant rashes, ecchymoses, or lacerations. Genitourinary: Deferred Rectal: Deferred ED Course Procedures Results for orders placed or performed during the hospital encounter of 06/25/19 (from the past 24 hour(s)) CBC with platelets differential Result Value Ref Range WBC 11.4 (H) 4.0 - 11.0 10e9/L RBC Count 5.65 4.4 - 5.9 10e12/L Hemoglobin 16.9 13.3 - 17.7 g/dL Hematocrit 50.1 40.0 - 53.0 % MCV 89 78 - 100 fl MCH 29.9 26.5 - 33.0 pg MCHC 33.7 31.5 - 36.5 g/dL RDW 13.1 10.0 - 15.0 % Platelet Count 197 150 - 450 10e9/L Diff Method Automated Method % Neutrophils 76.1 % % Lymphocytes 10.2 % % Monocytes 13.1 % % Eosinophils 0.3 % % Basophils 0.1 % % Immature Granulocytes 0.2 % Nucleated RBCs 0 0 /100 Absolute Neutrophil 8.7 (H) 1.6 - 8.3 10e9/L Absolute Lymphocytes 1.2 0.8 - 5.3 10e9/L Absolute Monocytes 1.5 (H) 0.0 - 1.3 10e9/L Absolute Eosinophils 0.0 0.0 - 0.7 10e9/L Absolute Basophils 0.0 0.0 - 0.2 10e9/L Abs Immature Granulocytes 0.0 0 - 0.4 10e9/L Absolute Nucleated RBC 0.0 CRP inflammation Result Value Ref Range CRP Inflammation 8.4 (H) 0.0 - 8.0 mg/L Comprehensive metabolic panel Result Value Ref Range Sodium 140 133 - 144 mmol/L Potassium 3.5 3.4 - 5.3 mmol/L Chloride 106 98 - 110 mmol/L Carbon Dioxide 27 20 - 32 mmol/L Anion Gap 7 3 - 14 mmol/L Glucose 84 70 - 99 mg/dL Urea Nitrogen 23 7 - 30 mg/dL Creatinine 0.76 0.50 - 1.00 mg/dL GFR Estimate >90 >60 mL/min/[1.73_m2] GFR Estimate If Black >90 >60 mL/min/[1.73_m2] Calcium 8.8 8.5 - 10.1 mg/dL Bilirubin Total 1.5 (H) 0.2 - 1.3 mg/dL Albumin 4.1 3.4 - 5.0 g/dL Protein Total 7.7 6.8 - 8.8 g/dL Alkaline Phosphatase 66 65 - 260 U/L ALT 26 0 - 50 U/L AST 14 0 - 35 U/L BNP Result Value Ref Range N-Terminal Pro BNP Inpatient 75 0 - 450 pg/mL Blood culture Result Value Ref Range Specimen Description Blood Venous blood Special Requests Received in aerobic bottle only Culture Micro PENDING RSV rapid antigen Result Value Ref Range RSV Rapid Antigen Spec Type Nasopharyngeal RSV Rapid Antigen Result Negative NEG^Negative Troponin I Result Value Ref Range Troponin I ES <0.015 0.000 - 0.045 ug/L Medications sodium chloride (PF) 0.9% PF flush 0.2-5 mL (has no administration in time range) sodium chloride (PF) 0.9% PF flush 3 mL (has no administration in time range) sodium chloride 0.9 % infusion (has no administration in time range) cefTRIAXone (ROCEPHIN) 1 g vial to attach to NS 100 mL bag for ADULTS or NS 50 mL bag for PEDS (1 g Intravenous New Bag 06/25/19 1225) Labs reviewed and reveled no significant abnormalities. Imaging reviewed and revealed no focal pneumonia. A consult was requested and obtained from peds cardiology, who evaluated the patient in the ED and agreed with the assessment and plan as documented. History obtained from family. Critical care time: none Assessments & Plan (with Medical Decision Making) 19yo male with hx of HLHS s/p Fontan with recent diagnosis of influenza B on 06/16. Continues to have significant symptoms of cough, sore throat, difficulty breathing and possible fevers. I have reviewed the nursing notes. Given recent flu diagnosis, high risk for secondary bacterial pneumonia. CXR obtained which showed no focal consolidation. No pulmonary edema or effusion. Strep and RSV negative. EBV sent. Lab work including CBC, CMP, CRP, troponin and BNP overall reassuring. Mildly elevated WBC and CRP. Blood culture sent. Given high risk of bacterial infection with polysplenia, did give ceftriaxone x1. Seen by cardiology in the ED and echo done today. Echo reasurring and cardiology thought most likely viral. Ok with discharge home. With strict return precautions. Normally lives alone, but will be discharging to stay with mom who can help with supportive management at home. - Continue tylenol as needed for pain and fever. Has had issues with ibuprofen in the past causing GI irritation, but would be ok to use for a few doses as needed in the next couple of days. - Follow up with PCP in clinic if not improving in the next 1-2 days - Return if continued fevers, not able to drink, worsening difficulty breathing, goes longer than 8 hours without urine. I have reviewed the findings, diagnosis, plan and need for follow up with the patient. New Prescriptions No medications on file Final diagnoses: Influenza Patient was seen and discussed with Dr. Bunch, attending physician. Micky Aguilar MD Pediatrics resident PGY3 06/25/2019 [facility] EM[facility] This data collected with the Resident working in the Emergency Department. Patient was seen and evaluated by myself and I repeated the history and physical exam with the patient. The plan of care was discussed with them. The [place]on portions of the note including the entire assessment and plan reflect my d ocumentation. Dariusz Sheppard MD 06/26/19 1133 GER INTERNAL documented in this encounter Plan of Treatment Upcoming Encounters Date Type Specialty Care Team Description 07/27/2022 Ancillary Procedure Cardiology Larry, Cordell Barajas MD [address] [facility] [place] [id number] (Wo rk) 07/27/2022 Office Visit Cardiology Larry, Cordell skelton MD [address] [facility] [place] [address] (Wo rk) documented as of this encounter Procedures Procedure Name Priority Date/Time Associated Comments Diagnosis ECHO PEDIATRIC STAT 06/25/2019 2:30 PM Results for this COMPLETE MANAGER INTERNAL procedure are i n the results section. EBV CAPSID ANTIBODY Routine 06/25/2019 12:21 Influenza Resu lts for this IGM PM MANAGER INTERNAL procedure are i n the results section. EBV CAPSID ANTIBODY Routine 06/25/2019 12:21 Influenza Resu lts for this IGG PM MANAGER INTERNAL procedure are i n the results section. EBV DNA PCR Routine 06/25/2019 12:21 Influenza Results for this QUANTITATIVE WHOLE PM MANAGER INTERNAL procedure are in BLOOD the results section. CBC WITH PLATELETS & STAT 06/25/2019 12:21 Res ults for this DIFFERENTIAL PM MANAGER INTERNAL procedure are i n the results section. TROPONIN I Routine 06/25/2019 12:21 Results for this PM MANAGER INTERNAL procedure are i n the results section. RESPIRATORY SYNCYTIAL STAT 06/25/2019 12:21 Re sults for this VIRUS RSV ANTIGEN PM MANAGER INTERNAL procedure are in the results section. NT PROBNP INPATIENT STAT 06/25/2019 12:21 Resu lts for this PM MANAGER INTERNAL procedure are i n the results section. CRP INFLAMMATION STAT 06/25/2019 12:21 Results for this PM MANAGER INTERNAL procedure are i n the results section. COMPREHENSIVE STAT 06/25/2019 12:21 Results fo r this METABOLIC PANEL PM MANAGER INTERNAL procedure ar e in the results section. BLOOD CULTURE STAT 06/25/2019 12:21 Influenza Results fo r this PM MANAGER INTERNAL procedure are i n the results section. XR CHEST 2 VIEWS STAT 06/25/2019 12:12 Results for this PM MANAGER INTERNAL procedure are i n the results section. documented in this encounter Results ECHO PEDIATRIC COMPLETE (06/25/2019 2:30 PM MANAGER INTERNAL) Anatomical Region Laterality Modality Echocardiography Specimen (Source) Anatomical Collection Method Collection Time Re ceived Time Location / / Volume Laterality 06/25/2019 2:04 PM MANAGER INTERNAL Narrative 06/25/2019 2:50 PM MANAGER INTERNAL [id number]^MUHAR^MICKY ?Study ID: [id number] ?[facility] ?[facility] ?[address] ?[place] [address] ? Pediatric Echocardiogram __ Name: JUDE MERRITT L Study Date: 06/25/2019 02:04 PM ? Patient Location: [facility] ? Age: 19 yrs : 2000 Gender: Male Patient Class: Emergency ?Height: 164 cm Ordering Provider: MICKY AGUILAR ? Weight: 64 kg Referring Provider: CORDELL HERRERA ? BSA: 1.7 m2 Performed By: Lucina Vanegas Report approved by: Abi Zaldivar MD Reason For Study: Other, Please Specify in Comments __ ------CONCLUSIONS------ Double outlet right ventricle, transposi [...] effusion. Doppler Measurements & Calculations LV dP/dt: 1069 mmHg/s Report approved by: Abi Zaldivar MD on 06/25/2019 02:50 PM Procedure Note Abi Zaldivar MD - 06/25/2019Fo rmatting of this note might be different from the original. [id number]^LAUREN^MICKY Study ID: [id number] [facility]'s [address] [place] [address] Pediatric Echocardiogram __ Name: JUDE MERRITT Study Date: 06/25/2019 02:04 PM [facility] Age: 19 yrs : 2000 Gender: Male Patient Class: Emergency Height: 164 cm Ordering Provider: MICKY AGUILAR ht: 64 kg Referring Provider: CORDELL HERRERA A: 1.7 m2 Performed By: Lucina Vanegas Report approved by: Abi Zaldivar MD Reason For Study: Other, Please Specify in Comments __ ------CONCLUSIONS------ Double outlet right ventricle, transposi [...] effusion. Doppler Measurements & Calculations LV dP/dt: 1069 mmHg/s Report approved by: Abi Zaldivar MD on 06/25/2019 02:50 PM Micky Aguilar MD CV PEDS ECHO ORDERABLES (ABNORMAL) EBV Capsid Antibody IgM (06/25/2019 12:21 PM MANAGER INTERNAL) P athologist Signature EBV Capsid 1.0 (H) 0.0 - 0.8 06/26/2019 [facility] Antibody IgM AI 2:31 PM MANAGER INTERNAL [facility] Comment: Equivocal, please recollect. Antibody index (AI) values reflect quali tative changes in antibody concentration that cannot be directly as sociated with clinical condition or disease state. Specimen Anatomical Collection Method Collection Time Receive d Time (Source) Location / / Volume Laterality 06/25/2019 12:21 06/25/2019 PM MANAGER INTERNAL 12:39 PM MANAGER INTERNAL Dariusz Bunch MD LAB - BLOOD ORDERABLES Performing Organization Address City/[facility]/ZIP Code Phon e Number [address] (ABNORMAL) EBV Capsid Antibody IgG (06/25/2019 12:21 PM MANAGER INTERNAL) Analysis Performed At Path logist Time Signature EBV Capsid >8.0 (H) 0.0 - 0.8 06/26/2019 [facility] Antibody IgG AI 2:31 PM MANAGER INTERNAL [facility] Comment: Positive, suggests recent or past exposu re Antibody index (AI) values reflect quali tative changes in antibody concentration that cannot be directly as sociated with clinical condition or disease state. Specimen Anatomical Collection Method Collection Time Receive d Time (Source) Location / / Volume Laterality 06/25/2019 12:21 06/25/2019 PM MANAGER INTERNAL 12:39 PM MANAGER INTERNAL Dariusz Bunch MD LAB - BLOOD ORDERABLES Performing Organization Address City/[facility] Code Phon e Number [address] EBV DNA PCR Quantitative Whole Blood (06/25/2019 12:21 PM MANAGER INTERNAL) [facility] Method Time Signature EBV DNA EBV DNA Not EBVNEG^EBV 06/29/2019 INFECTIOUS Copies/mL Detected DNA Not 3:03 PM MANAGER INTERNAL DISEASES Detected DIAGNOSTIC {Copies}/mL LABORATORY EBV DNA Log Not Calculated <2.7 06/29/2019 INFECTIOUS of Copies {Log_copies 3:03 PM MANAGER INTERNAL DISEASES }/mL DIAGNOSTIC LABORATORY Comment: The Real-Time quantitative EBV assay was developed and its performance characteristics determined by the Infect ious Diseases Diagnostic Laboratory at the [facility] in [place], [place]. ??The primers and probes are Analyte Specific Reagents (ASRs) manufactured ??by [employer]. ASRs are used in many laboratory tests n ecessary for standard medical care and generally do not require U.S. Food and Drug Administration approval. ??The FDA has determined that such clearance or a pproval is not necessary. ??This test is used for clinical purposes. ??It shou ld not be regarded as investigational or research. This laboratory is certified under the C linical Laboratory Improvement Amendments of 1988 (CLIA-88) as qualifie d to perform high complexity clinical laboratory testing. The quantitative range of this assay is 500-22,500,00 copies/mL (2.7-7.4 log copies/mL). ??A negative result does not rule out the presence of PCR inhibitors in the patient specimen or EB V DNA nucleic acid in concentrations below the level of detection of the assa y. ??Inhibition may also lead to underestimation of viral quantitation. Specimen Anatomical Collection Method Collection Time Receive d Time (Source) Location / / Volume Laterality 06/25/2019 12:21 06/25/2019 PM MANAGER INTERNAL 12:37 PM MANAGER INTERNAL Micky Aguilar MD LAB - BLOOD ORDERABLES Performing Organization Address City/[facility]/ZIP Code Phon e Number INFECTIOUS DISEASES [address] [place] [address] DIAGNOSTIC LABORATORY, [facility] INFECTIOUS DISEASES [address] [place] [address], A DIAGNOSTIC LABORATORY Troponin I (06/25/2019 12:21 PM MANAGER INTERNAL) P athologist Signature Troponin I ES <0.015 0.000 - 06/25/2019 [facility] 0.045 ug/L 1:35 PM MANAGER INTERNAL [facility] Comment: The 99th percentile for upper reference range is 0.045 ug/L. ??Troponin values in the range of 0.045 - 0.120 ug/L may b e associated with risks of adverse clinical events. Specimen Anatomical Collection Method Collection Time Receive d Time (Source) Location / / Volume Laterality 06/25/2019 12:21 06/25/2019 PM MANAGER INTERNAL 12:37 PM MANAGER INTERNAL Micky Aguilar MD LAB - BLOOD ORDERABLES Performing Organization Address City/State/ZIP Code Phon e Number [facility] [address] [place] [address] [facility] RSV rapid antigen (06/25/2019 12:21 PM MANAGER INTERNAL) Patholo gist Method Time Signature RSV Rapid Nasopharyngeal 06/25/2019 [facility] Antigen Spec 1:01 PM MANAGER INTERNAL [facility] RSV Rapid Negative NEG^Negat 06/25/2019 [facility] colleen 1:31 PM MANAGER INTERNAL [facility] Result [facility] Comment: Test results must be correlated with cli nical data. If necessary, results should be confirmed by a molecular assay or viral culture. Specimen (Source) Anatomical Collection Method Collection Time Re ceived Time Location / / Volume Laterality Specimen from 06/25/2019 12:21 06/25/2019 nasopharyngeal PM MANAGER INTERNAL 1:01 PM MANAGER INTERNAL structure (specimen) Micky Aguilar MD LAB - MICRO GENERAL ORDERABL ES Performing Organization Address City/State/ZIP Code Phon e Number [facility] [address] [place] [address] [facility] Blood culture (06/25/2019 12:21 PM MANAGER INTERNAL) [facility] gist Method Time Signature Specimen Blood Venous INFECTIOUS Description blood DISEASES DIAGNOSTIC LABORATORY Special Received in 06/25/2019 INFECTIOUS Requests aerobic 1:05 PM MANAGER INTERNAL DISEASES bottle only DIAGNOSTIC LABORATORY Culture Micro No growth 07/01/2019 INFECTIOUS 5:27 AM MANAGER INTERNAL DISEASES DIAGNOSTIC LABORATORY Specimen Anatomical Collection Method Collection Time Receive d Time (Source) Location / / Volume Laterality Blood specimen VENOUS BLOOD / 06/25/2019 12:21 020 (specimen) Unknown PM MANAGER INTERNAL 12:36 PM MANAGER INTERNAL Comment: Venous blood Micky Aguilar MD LAB - MICRO GENERAL ORDERABL ES Performing Organization Address City/State/ZIP Code Phon e Number INFECTIOUS DISEASES [address] [place] [address] DIAGNOSTIC LABORATORY, [facility] INFECTIOUS DISEASES [address] [place] [address], A DIAGNOSTIC LABORATORY BNP (06/25/2019 12:21 PM MANAGER INTERNAL) athologist Signature N-Terminal Pro 75 0 - 450 06/25/2019 [facility] [facility] BNP Inpatient pg/mL 1:03 PM MANAGER INTERNAL [facility] Comment: Reference range shown and results [...] Location / / Volume Laterality Blood specimen 06/25/2019 12:21 0 (specimen) PM MANAGER INTERNAL 12:37 PM MANAGER INTERNAL Micky Aguilar MD LAB - BLOOD ORDERABLES Performing Organization Address City/State/ZIP Code Phon e Number [facility] [address] [place] [address] [facility] [address] [place] [address], [place] [phone] (ABNORMAL) Comprehensive metabolic panel (06/25/2019 12:21 PM MANAGER INTERNAL) athologist Signature Sodium 140 133 - 144 06/25/2019 [facility] mmol/L 12:54 PM [facility] Potassium 3.5 3.4 - 5.3 06/25/2019 [facility] mmol/L 12:54 PM [facility] Chloride 106 98 - 110 06/25/2019 [place] [facility] mmol/L 12:54 PM [facility] Carbon Dioxide 27 20 - 32 06/25/2019 [facility] mmol/L 1:03 PM [facility] Anion Gap 7 3 - 14 06/25/2019 [facility] [facility] mmol/L 1:03 PM [facility] Glucose 84 70 - 99 06/25/2019 [facility] mg/dL 1:03 PM [facility] Urea Nitrogen 23 7 - 30 06/25/2019 [facility] mg/dL 1:03 PM [facility] Creatinine 0.76 0.50 - 06/25/2019 [facility] 1.00 mg/dL 1:03 PM [facility] GFR Estimate >90 >60 06/25/2019 [facility] mL/min/{1. 1:03 PM [facility] 73_m2} [facility] Comment: Non GFR Calc Starting 06/03/2018, serum creatinine ba sed estimated GFR (eGFR) will be calculated using the Chronic Kidney Dise ase Epidemiology Collaboration (CKD-EPI) equation. GFR Estimate If >90 >60 mL/min/{1.73_m2} 06/25/2019 1: 03 PM [facility] Comment: GFR Calc Starting 06/03/2018, serum creatinine ba sed estimated GFR (eGFR) will be calculated using the Chronic Kidney Dise ase Epidemiology Collaboration (CKD-EPI) equation. Calcium 8.8 8.5 - 10.1 06/25/2019 1:03 PM [facility] mg/dL [facility] Bilirubin Total 1.5 (H) 0.2 - 1.3 mg/dL 06/25/2019 1:03 PM [facility] Albumin 4.1 3.4 - 5.0 g/dL 06/25/2019 1:03 PM [facility] Protein Total 7.7 6.8 - 8.8 g/dL 06/25/2019 1:03 PM [facility] Alkaline Phosphatase 66 65 - 260 U/L 06/25/2019 1:03 PM [facility] ALT 26 0 - 50 U/L 06/25/2019 1:03 PM [facility] AST 14 0 - 35 U/L 06/25/2019 1:03 PM [facility] Specimen Anatomical Collection Method Collection Time Receive d Time (Source) Location / / Volume Laterality Blood specimen 06/25/2019 12:21 0 (specimen) PM MANAGER INTERNAL 12:37 PM MANAGER INTERNAL Micky Aguilar MD LAB - BLOOD ORDERABLES Performing Organization Address City/State/ZIP Code Phon e Number [facility] [address] [place] [id number] [place] [address] [address] [place] [address], [place] [phone] (ABNORMAL) CRP inflammation (06/25/2019 12:21 PM MANAGER INTERNAL) [facility] gist Method Time Signature CRP Inflammation 8.4 (H) 0.0 - 8.0 06/25/2019 [facility] mg/L 1:03 PM MANAGER INTERNAL [facility] Specimen Anatomical Collection Method Collection Time Receive d Time (Source) Location / / Volume Laterality Blood specimen 06/25/2019 12:21 0 (specimen) PM MANAGER INTERNAL 12:37 PM MANAGER INTERNAL Micky Aguilar MD LAB - BLOOD ORDERABLES Performing Organization Address City/State/ZIP Code Phon e Number [facility] [address] [place] [address] [phone] [facility] [address] [place] [address], [place] [phone] (ABNORMAL) CBC with platelets differential (06/25/2019 12:21 PM MANAGER INTERNAL) [facility] gist Method Time Signature WBC 11.4 (H) 4.0 - 06/25/2019 [facility] 11.0 12:45 PM [facility] 10e9/L [facility] RBC Count 5.65 4.4 - 5.9 06/25/2019 [facility] 10e12/L 12:45 PM [facility] Hemoglobin 16.9 13.3 - 06/25/2019 [facility] 17.7 g/dL 12:45 PM [facility] Hematocrit 50.1 40.0 - 06/25/2019 [facility] 53.0 % 12:45 PM [facility] MCV 89 78 - 100 06/25/2019 [facility] fl 12:45 PM [facility] MCH 29.9 26.5 - 06/25/2019 [facility] 33.0 pg 12:45 PM [facility] MCHC 33.7 31.5 - 06/25/2019 [facility] 36.5 g/dL 12:45 PM [facility] RDW 13.1 10.0 - 06/25/2019 [facility] 15.0 % 12:45 PM [facility] Platelet Count 197 150 - 450 06/25/2019 [facility] 10e9/L 12:45 PM [facility] Diff Method Automated 06/25/2019 [facility] Method 12:45 PM [facility] % Neutrophils 76.1 % 06/25/2019 [facility] 12:45 PM [facility] % Lymphocytes 10.2 % 06/25/2019 [facility] 12:45 PM [facility] % Monocytes 13.1 % 06/25/2019 [facility] 12:45 PM [facility] % Eosinophils 0.3 % 06/25/2019 [facility] 12:45 PM [facility] % Basophils 0.1 % 06/25/2019 [facility] 12:45 PM [facility] % Immature 0.2 % 06/25/2019 [facility] Granulocytes 12:45 PM [facility] Nucleated RBCs 0 0 /100 06/25/2019 [facility] 12:45 PM [facility] Absolute 8.7 (H) 1.6 - 8.3 06/25/2019 [facility] Neutrophil 10e9/L 12:45 PM [facility] Absolute 1.2 0.8 - 5.3 06/25/2019 [facility] Lymphocytes 10e9/L 12:45 PM [facility] Absolute 1.5 (H) 0.0 - 1.3 06/25/2019 [facility] Monocytes 10e9/L 12:45 PM [facility] Absolute 0.0 0.0 - 0.7 06/25/2019 [facility] Eosinophils 10e9/L 12:45 PM [facility] Absolute 0.0 0.0 - 0.2 06/25/2019 [facility] Basophils 10e9/L 12:45 PM [facility] Abs Immature 0.0 0 - 0.4 06/25/2019 [facility] Granulocytes 10e9/L 12:45 PM [facility] Absolute 0.0 06/25/2019 [facility] Nucleated RBC 12:45 PM [facility] Specimen Anatomical Collection Method Collection Time Receive d Time (Source) Location / / Volume Laterality Blood specimen 06/25/2019 12:21 0 (specimen) PM MANAGER INTERNAL 12:37 PM MANAGER INTERNAL Micky Aguilar MD LAB - BLOOD ORDERABLES Performing Organization Address City/State/ZIP Code Phon e Number [facility] [address] [place] [address] [facility] XR Chest 2 Views (06/25/2019 12:12 PM MANAGER INTERNAL) Anatomical Region Laterality Modality Chest Computed Radiography Specimen (Source) Anatomical Location Collection Method / Collectio n Time Received Time / Laterality Volume Impressions 06/25/2019 2:01 PM MANAGER INTERNAL IMPRESSION: No focal pneumonia. GENO CASTELLANOS MD Narrative 06/25/2019 2:01 PM MANAGER INTERNAL XR CHEST 2 VW ??06/25/2019 12:12 PM ?? HISTORY: difficulty breathing, fevers, h x of [facility] w/Fontan, recent diagnosis of flu B COMPARISON: 04/28/2018 FINDINGS: PA and lateral views of the chest. Stabl e postoperative findings. The cardiac silhouette size is normal. There is no significant pleural effusion or pneumothorax. Pulmonary vasc ulature is mildly prominent and unchanged from the comparison examin ation. There are no new focal pulmonary opacities. Procedure Note Geno Castellanos MD - 06/25/2019Forma tting of this note might be different from the original. XR CHEST 2 VW 06/25/2019 12:12 PM HISTORY: difficulty breathing, fevers, h x of [facility]HS w/Fontan, recent diagnosis of flu B COMPARISON: 04/28/2018 FINDINGS: PA and lateral views of the chest. Stabl e postoperative findings. The cardiac silhouette size is normal. There is no significant pleural effusion or pneumothorax. Pulmonary vasc ulature is mildly prominent and unchanged from the comparison examin ation. There are no new focal pulmonary opacities. IMPRESSION: No focal pneumonia. GENO CASTELLANOS MD Micky Aguilar MD IMG DIAGNOSTIC IMAGING ORDER BHAVESH documented in this encounter Visit Diagnoses Diagnosis Influenza Influenza with other respiratory manifes tations documented in this encounter Administered Medications Inactive Administered Medications - up to 3 most recent administrations Medication Order MAR Action Action Date Dose Rate Site cefTRIAXone (ROCEPHIN) 1 g vial to New Bag 06/25/2019 12:25 PM MANAGER INTERNAL 1 g attach to NS 100 mL bag for ADULTS or NS 50 mL bag for PEDS STAT, 1 g, Intravenous, ONCE, On Suze 06/25/19 at 1156, For 1 dose, NOT for use in neonates receiving IV calcium products., Indications: Community Acquired Pneumonia sodium chloride (PF) 0.9% PF flush 0.2-5 mL 0.2-5 mL, Intracatheter, EVERY 1 MIN PRN, line flush, post meds or blood draw, Starting on Suze 06/25/19 at 1153, for miah pheral IV line flush post IV meds. 0.2-3 mL post IV meds. 0.2-5 mL post blood draw. Volume is depe ndent on catheter size. sodium chloride (PF) 0.9% PF flush 3 mL 3 mL, Intracatheter, EVERY 8 HOURS, Firs t dose on Suze 06/25/19 at 1156, And Q1H PRN, to lock peripheral IV dormant line. documented in this encounter Active and Recently Administered Medications Times are shown in MANAGER INTERNAL. Scheduled Medication Order 06/23/2019 06/24/2019 06/25/2019 cefTRIAXone (ROCEPHIN) 1 g vial to attac h to NS 100 mL bag for ADULTS or NS 50 mL bag for PEDS (COMPLETED) 1225 (New Ba g - Provider: Tracy Odom, RN)1533 (Stopped - Provider: Tracy Odom, BRIELLE) STAT, 1 g, Intravenous, ONCE, Suze 06/25/19 at 1156, For 1 dose, NOT for use in neonates receiving IV calcium products., Indications: Community Acquired Pneumonia sodium chloride (PF) 0.9% PF flush 3 mL 1156 (Canceled Entry - Provider: Orders Generic Provider - Comment: Automatically canceled at discontinue of medication order) 3 mL, Intracatheter, EVERY 8 HOURS, Firs t dose on Suze 06/25/19 at 1156, And Q1H PRN, to lock peripheral IV dormant line. PRN Medication Order 06/23/2019 06/24/2019 06/25/2019 sodium chloride (PF) 0.9% PF flush 0.2-5 mL 0.2-5 mL, Intracatheter, EVERY 1 MIN PRN , line flush, post meds or blood draw, Starting Suze 06/25/19 at 1153, for peripheral IV line flush post IV meds. 0.2-3 mL post IV meds. 0.2-5 mL post blood draw. Volume is dependent on catheter size. documented in this encounter Additional Health Concerns Assessment Noted Time PHQ-9 Depression Total Score: 10 04/01/2019 9:14 AM CD T documented as of this encounter Care Teams Furnace Process Plant Operator Relationship Specialty Start Date End Date [facility] PCP - General 06/25/19 02/22/20 [address] [place] [address] documented as of this encounter
--- OUTSIDE RECORDS SUMMARY | 2022-04-10 09:56 | XMS_ITS | Encounter Summary ---
:2000 Author Organization [place] Address [facility] [place] [address] Care Team Providers Name Role Phone KomalStephen mejia Rudy Primary Care Provider Reason for Visit Reason Onset Date Comments MH/CD Inpatient 10/01/2018 Encounter Details Date Type Department Care Team Description 10/01/2018 Telephone [facility] Generic, Behavioral MH/ CD Inpatient Behavioral Health In chava Estrada MD [address] [place] [phone] Social History Tobacco Use Types Packs/Day Years Used Date Smoking Tobacco: Never Smokeless Tobacco: Never Comments: none at home Alcohol Use Standard Drinks/Week Comments No 0 (1 standard drink = 0.6 oz pure alcoho l) Sex Assigned at Date Recorded Male 03/09/2019 1:21 PM CDT documented as of this encounter Miscellaneous Notes Telephone Encounter - Kylie Toribio - 10/01/2018 11:05 AM CDT S: There is no availability on 3C. Per ED MD, acute care in pt is appropriate. Pt is 18 and appropriate for 4A, Young adult unit. Parents are agreeable with this. A: Needing hospitalization for safety and stabilization. R: Admit to 4A / accepted by Vol Approved by Frances Mendoza, blas 10:30 AM - ED texted and called 10:40 AM Telephone Encounter - Ana Mcarthur - 10/01/2018 3:56 AM CDT S: 18 y/o male presented to the [facility] ED with SI. Report by Shona (CHENG). B: Hx depression, ADHD, congenital anomalies of intestine and spleen, atrial tachycardia, hypoplastic left heart syndrome. Hot Packer reported some cognitive issues but noted they are not significant. Ptreported being depressed for several years. Pt meets with a therapist but did not disclose his depression. Depression increased two weeks ago and was started on Lexapro at that time. Last night, pt posted suicidal messages on [employer] that were reported to his mother. Pt unable to contract for safety at home and said he has a plan of stabbing himself or poisoning by carbon monoxide. Denies aggression, HI, hallucinations, delusions or substance abuse. Stressors relating to his medical issues and not b eing able to participate in sports because of it. CHENG intermediate designer recommends admission to subacute. A: Voluntary Medically cleared. Pt is followed through [facility] for cardiac issues and is on a med regimen. R: Pt placed on waitlist. CHENG notified. documented in this encounter Plan of Treatment Upcoming Encounters Date Type Specialty Care Team Description 07/27/2022 Ancillary Procedure Cardiology Cordell Juarez MD [address] [place], [place] [address] [place] [address] (Arleen valdes) 07/27/2022 Office Visit Cardiology Cordell Juarez MD [address] [facility] [address] [place] [address] (Arleen valdes) documented as of this encounter Visit Diagnoses Not on filedocumented in this encounter Care Teams Preparer Samples And Repairs Relationship Specialty Start Date End Date Stephen Sauceda PCP - General Pediatrics 03/06/17 06/24/[address] [address] documented as of this encounter
--- OUTSIDE RECORDS SUMMARY | 2022-04-10 09:56 | XMS_ITS | Encounter Summary ---
:2000 Author Organization [place] Address [facility] [place] [address] Care Team Providers Name Role Phone Stephen Sauceda Primary Care Provider Reason for Visit Reason Onset Date Comments Call Back 10/01/2018 regarding pt update for inpatient Encounter Details Date Type Department Care Team Description 10/01/2018 Telephone [facility] Cordell Juarez, Call Back (regarding [facility] pt update for [facility] [address] [place] [address] inpatient ) [address] [place], [place] [id number] [facility] [address] [place] [address] [facility] [place] [address] Social History Tobacco Use Types Packs/Day Years Used Date Smoking Tobacco: Never Smokeless Tobacco: Never Comments: none at home Alcohol Use Standard Drinks/Week Comments No 0 (1 standard drink = 0.6 oz pure alcoho l) Sex Assigned at Date Recorded Male 03/09/2019 1:21 PM CDT documented as of this encounter Miscellaneous Notes Telephone Encounter - Lorena Reed RN - 10/01/2018 10:21 AM CDT Mom states patient was brought to behavioral unit to get medications adjusted. No discharge timelineyet they are thinking 3-5 days for intake process then will work towards discharge. Mom advised to let us know if she need anything. She states she understands and agrees with plan HIRAL Manzano, RN Telephone Encounter - Kyung Luong - 10/01/2018 9:52 AM CDT Callers Name: Jaimie Dia Relationship to Patient: Mother Best time of day to call: any Is it ok to leave a detailed voicemail on this number: yes Reason for Call: Mom would like to talk Sara for pt update ,pt is currently in hospital . Thank you. documented in this encounter Plan of Treatment Upcoming Encounters Date Type Specialty Care Team Description 07/27/2022 Ancillary Procedure Cardiology Cordell Juarez MD [address] [address] (Wo rk) 07/27/2022 Office Visit Cardiology Cordell Juarez MD [facility] [place] [id number] [place] [address] (Wo rk) documented as of this encounter Visit Diagnoses Not on filedocumented in this encounter Care Teams Scrap Shear Operator Relationship Specialty Start Date End Date Stephen Sauceda PCP - General Pediatrics 03/06/17 06/24/19 [facility] [address] [place] [address] documented as of this encounter
--- OUTSIDE RECORDS SUMMARY | 2022-04-10 09:56 | XMS_ITS | Encounter Summary ---
:2000 Author Organization [place] Address [address] [place] [address] Care Team Providers Name Role Phone Stephen Sauceda Primary Care Provider Encounter Details Date Type Department Care Team Description 09/30/2018 Travel Social History Tobacco Use Types Packs/Day [...] 07/27/2022 Ancillary Procedure Cardiology Cordell Juarez MD [address] [place] [id number] (Wo rk) 07/27/2022 Office Visit Cardiology Cordell Juarez MD [address] [place] [phone] (Wo rk) documented as of this encounter Visit Diagnoses Not on filedocumented in this encounter Care Teams Crop Consultant Relationship Specialty Start Date End Date Komal, Stephen J PCP - General Pediatrics 03/06/17 06/24/19 [facility] [address] [place] [address] documented as of this encounter
--- OUTSIDE RECORDS SUMMARY | 2022-04-10 09:56 | XMS_ITS | Encounter Summary ---
:2000 Author Organization [place] Address [facility] [place] [address] Care Team Providers Name Role Phone Stephen Sauceda Primary Care Provider Encounter Details Date Type Department Care Team Description 08/26/2018 Telephone [facility] Explorer Nurse, [facility] Ped s Cardiology [facility] [address] [facility] [address] [place], [place] [id number] [phone] Social History Tobacco Use Types Packs/Day Years Used Date Smoking Tobacco: Never Comments: none at home Alcohol Use Standard Drinks/Week Comments No 0 (1 standard drink = 0.6 oz pure alcoho l) Sex Assigned at Date Recorded Male 03/09/2019 1:21 PM CDT documented as of this encounter Miscellaneous Notes Telephone Encounter - Cordell Juarez MD - 08/26/2018 2:48 PM CDT Kirsten Montes De Oca received call this am regarding a muscle and retroperitoneal hemorrhage (small amt ofblood in retroperitoneal gutters was Dr. Carlin's recollection) that was continuing to cause pain.Discussed with Jude's primary treating physician, Dr. Lionel Carlin. CT scans sat and Saturday were stable. He was unsure about hemoglobin, but said he would double check and call me if concerns. Recommended discontinuing coumadin for a few days until symptoms stabilize, and then rechecking hemoglobin (thurs). If Improved pain would restart coumadin over the weekend and recheck hemoglobin 48 hours postor if new symptoms. If increasing symptoms or any instability, CV symptoms, please reimage and recheck CBC. Updated mother. She reported that he is having some pain with BM today. If persistent, especially ifwithout constipation counseled her to seek reevaluation for Luke. Cordell Juarez M.D. [facility] Pediatric[facility] Pediatric and Adult Congenital Cardiology [facility] Pediatric Cardiology Office [phone] Adult Congenital Cardiology Triage and Scheduling [phone] documented in this encounter Plan of Treatment Upcoming Encounters Date Type Specialty Care Team Description 07/27/2022 Ancillary Procedure Cardiology Cordell Juarez MD [address] [facility] [place] [address] (Wo rk) 07/27/2022 Office Visit Cardiology Cordell Juarez [facility] [facility] [place] [address] (Wo rk) documented as of this encounter Visit Diagnoses Not on filedocumented in this encounter Care Teams Inclusion Paraeducator Relationship Specialty Start Date End Date Stephen Sauceda PCP - General Pediatrics 03/06/17 06/24/19 [facility] [address] [place] [address] documented as of this encounter
--- OUTSIDE RECORDS SUMMARY | 2022-04-10 09:56 | XMS_ITS | Encounter Summary ---
:2000 Author Organization [place] Address [address] [facility] [place] [address] Care Team Providers Name Role Phone Stephen Sauceda Primary Care Provider Reason for Referral Rehab Therapy Physical Therapy - Closed Specialty Diagnoses / Procedures Referred By Contact Refer red To Contact Diagnoses Hematoma of right psoas region to anticoagulant therapy, initial encounter Physical deconditioning Yasmin Garcia APRN CNP [address] [facility] [address] [place], [place] [address] Referral ID Status Reason Start Date Expiration Date Visits Requ ested Visits Authorized [id number] Closed 09/08/2018 09/08/2019 1 1 Reason for Visit Reason Comments Consult New PACCT patient Encounter Details Date Type Department Care Team Description 09/08/2018 Office Visit [facility] Yasmin Diallo Drug-induc ed constipation (Primary Dx); Pediatric JONATHAN Dias CNP Hematoma of right psoas region to antico agulant therapy, initial encounter; Specialty Clinic [address] [place] [address] Physical deconditioning; [address] Bilateral groin pain; Floor [place], [place] Hypoplastic [place] [id number] [phone] Social History Tobacco Use Types Packs/Day Years Used Date Smoking Tobacco: Never Comments: none at home Alcohol Use Standard Drinks/Week Comments No 0 (1 standard drink = 0.6 oz pure alcoho l) Sex Assigned at Date Recorded Male 03/09/2019 1:21 PM CDT documented as of this encounter Last Filed Vital Signs Vital Sign Reading Time Taken Comments Blood Pressure 109/56 09/08/2018 1:25 PM CDT Pulse 63 09/08/2018 1:25 PM CDT Temperature - - Respiratory Rate - - Oxygen Saturation - - Inhaled Oxygen Concentration - - Weight 63.8 kg (140 lb 10.5 oz) 09/08/2018 1:25 PM CDT Height 163.2 cm (5' 4.25) 09/08/2018 1:25 PM CDT Body Mass Index 23.95 09/08/2018 1:25 PM CDT Body Mass Index Percentile 69.94 % 09/08/2018 1:25 PM CD T Growth Chart: [facility] (Boys, 2-20 Years) documented in this encounter Progress Notes Yasmin Garcia APRN SENIOR HEALTH EDUCATOR - 09/08/2018 1:30 PM CDT Images from the original note were not included. Pain and Advanced/Complex Care Team (PACCT) Out[facility], Follow-up Visit Jude Bills Age: [age] year old Date of : 2000 Date: 09/08/2018 Primary care provider: Stephen Sauceda Chief Complaint/Visit Diagnosis: Drug-induced constipation Hematoma of right psoas region to anticoagulant therapy, initial encounter Congenital anomaly of fixation of intestine Physical deconditioning Bilateral groin pain Reason and/or Goals of Clinic Visit: pain follow up, medication adjustments Jude Bills was accompanied by his mother, and I spent a total of 75 minutes [id number] with them during today???s office visit. Over 50% of this time was spent counseling the patient and/or coordinating care regarding pain management. The following is a summary of my conversation with Christi; additional information was obtained from a review of relevant medical records. This is his firstPACCT clinic visit. He was last seen on 09/05/2018 while inpatient. SUBJECTIVE ASSESSMENT Interim History Since he was discharged from the hospital, Jude reports that his pain has been ok. However he has not been getting up and moving much since that time, spending most of the time in his room. He is eating some, not drinking much unless his mom forces him to. He has not had a BM since he was in the hospital. No nausea or vomiting. Fluid intake so far today: powerade (20 oz). Reports that he is unsure when he last urinated. When he last voided, it did not appear overtly concentrated. No dysuria, hematuria, incontinence or urgency. He has not yet returned to school. Jude does not report any new complaints of pain. 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 He was admitted to the hospital 09/01- for Current Pain Assessment Onset: Early August 2018 Provocation/Palliation: sitting, walking Region/Radiation: lower abdomen and groin region Severity Did not rate his pain today, pain is not currently limiting mobility He states that he is able to function with little to no limitation when the pain is 3 out of 10. Timing/frequency/duration: onset ~ 1 month, constant, improving Gastrointestinal Symptoms Bowel Pattern: Frequency: no BM since hospital discharge 09/05/18 Consistency: prior to this, loose Alna Stool Chart Rating: (in hospital) Type 6: Fluffy pieces with ragged edges, a mushy stool Nausea: Pattern: none Past Medical/Social & Family History Reviewed in the EMR; no significant changes were made. Review of Systems A comprehensive review of systems was performed, and was negative other than what was described in the interim history. OBJECTIVE ASSESSMENT Medications The analgesic medication regimen for Jude Bills consists of the following: SIMPLE ANALGESIA - acetaminophen 500 mg po Q4h - taking as prescribed? Yes, as prescribed. They attempted to space this overnight and he woke in significant pain OPIOID THERAPY - morphine ER 15 mg in the morning, 30 mg in the evening. - taking as prescribed? Yes, as prescribed. Tapered today from 30 mg po BID - morphine 7.5 mg po Q4h PRN - taking as prescribed? Yes, PRN. has not needed. ADJUVANT ANALGESIA - diazepam 0.5 mg po Q6h PRN - taking as prescribed? Yes, PRN. Taking at bedtime routinely; took a dose today prior to travel forappointment. SIDE EFFECT MEDICATIONS Nausea/Vomiting: n/a Constipation: miralax 17 gm po once daily, senna 1 tab po twice daily The [place] Prescription Monitoring Program Database has not been reviewed. Physical Examination Vitals: Blood pressure 109/56, pulse 63, height 1.632 m (5' 4.25), weight 63.8 kg (140 lb 10.5 oz). General: Alert, awake, NAD. Sitting up in chair HEENT: NC/AT, No masses, lesions, tenderness or abnormalities; PERRL, EOMI. Sclera non-icteric, non-injected. Conjunctivae pink without discharge. External ears normal. Nares without discharge. Mucous membranes sticky. Oropharynx clear. Normal dentition. Neck supple, with full ROM. No cervical LAD. Cardiovascular: RRR, Physiologic S1/S2, No m/g/r. Respiratory: CTAB, No increased WOB, No inter- or sub-costal retractions. Gastrointestinal: Abdomen soft, nontender, non-distended. Healing bruises over right lower abdomen, just above and medial to iliac crest Normoactive BS. No organomegaly or masses felt. Genitourinary: Scrotal edema subjectively less than exam on Saturday, groin and scrotum nontender withexam. Faint healing hematoma right groin Extremities: No deformity. Capillary refill <2 seconds. Trace LE edema, non-pitting Skin: Good skin turgor. No suspicious bruises, lesions or rashes. Psych/Neuro: Alert & oriented to person, place, time and situation. Cranial nerves II-XI grosslyintact. Strength 5/5 in all extremities. Mentation and affect appropriate. OVERALL ASSESSMENT Jude Bills is a 18 year old male with complex congenital heart disease and psoas hematoma thoughtto be secondary to anticoagulant therapy with associated pain localized to abdomen, groin and perineal region. Pain is improving and his hematomas appear to be improving based on clinical exam. Activity continues to be limited by pain as well as motivation and he remains physically deconditioned. He is drinking in small amounts without nausea; minimal po intake volume by report and decreased urine output are concerning for dehydration, though urinary retention secondary to hematomas and/or medications remains in the differential. He continues to have trouble with constipation related to medicationsas well as inactivity. RECOMMENDATIONS/PLAN, COUNSELING & COORDINATION PSOAS HEMATOMA WITH ASSOCIATED PAIN - continue current regimen of scheduled acetaminophen, MS Contin (continue taper as tolerated) withas needed valium or morphine for breakthrough pain OPIOID TOLERANCE RELATED TO ACUTE PAIN MANAGEMENT - Extended-release morphine (MS Contin) taper: - Step 1 (done today): 15 mg in am, 30 mg at bedtime for at least 2 days. After this, if pain remains reasonably controlled, move to the next step. - Step 2: 15 mg twice daily for at least 2 days. After this, if pain remains reasonably controlled,move to the next step. - Step 3: 15 mg at bedtime only for at least 2 days. After this, if pain remains reasonably controlled, discontinue MS Contin - Continue to have an additional 7.5 mg available Q4h PRN for breakthrough pain or if withdrawal symptoms occur with taper. - Typical symptoms of opioid withdrawal include, but are not limited to: anxiety, agitation, restlessness, myalgias, sweating, yawning, abdominal cramping, watery eyes, runny nose, dilated pupils, nausea/vomting, diarrhea, fever/chills, increased heart rate, tremors, and goosebumps. Treatment is PRN o pioid. If this occurs, he should contact his primary team CONSTIPATION, OPIOID-INDUCED - increased miralax to twice daily, ordered suppository PRN for no stool - Continue the following bowel regimen while on opioids: Mush: polyethylene glycol 3350, 17 g by mouth twice daily. May decrease to once daily if loose stools Push: Senna, 1 tablet by mouth twice daily. May decrease to once daily if loose stools Uncorking: Dulcolax suppository if no stool in 24 hours. PHYSICAL DECONDITIONING - Encouraged ambulation, progressive increases in activity - Outpatient PT external referral ordered; they plan to go to PT in [place] URINARY RETENTION VS. DEHYDRATION - Luke drank 2 cups of water (~400 ml total) during my visit. I encouraged him to continue to drink fluids this afternoon and to stay in the area. If he is unable to void, I recommended that he seek care in the ED for evaluation (?bladder scan, fluids, etc.) Follow-Up: With Dr. Juarez on Saturday and with me in 2 weeks. If he is doing well with taper, you can cancel the appointment and I will see him 4 weeks from today Attestation: I spent a total of 75 minutes [id number] with Elizabethmarina Cho Negar during today???s office visit. Over 50% of this time was spent counseling the patient and/or coordinating care regarding pain management. Please see above note for further details. Thank you for allowing me to continue to participate in the care of this nice young man! Yasmin Garcia NP Pediatric Pain & Advanced/Complex Care Team (PACCT) [facility] Copy to patient: JOSEPH BILLS ROBERT [id number] [facility] [address] [facility] [phone] documented in this encounter Nursing Notes Patrizia Vásquez LPN - 09/08/2018 1:30 PM CDT [id number] Chief Complaint Patient presents with ??? Consult New PACCT patient Initial BP 109/56 (BP Location: Right arm, Patient Position: Chair, Cuff Size: Adult Regular) Pulse 63 Ht 5' 4.25 (163.2 cm) Wt 140 lb 10.5 oz (63.8 kg) BMI 23.95 kg/m?? Estimated body mass index is 23.95 kg/m?? as calculated from the following: Height as of this encounter: 5' 4.25 (163.2 cm). Weight as of this encounter: 140 lb 10.5 oz (63.8 kg). Medication Reconciliation: complete documented in this encounter Plan of Treatment Upcoming Encounters Date Type Specialty Care Team Description 07/27/2022 Ancillary Procedure Cardiology Cordell Juarez MD [address] [place] [address] (Wo rk) 07/27/2022 Office Visit Cardiology Cordell Juarez MD [address] [place] [address] (Wo rk) Scheduled Referrals Name Type Priority Associated Diagnoses Order S chedule PHYSICAL THERAPY Referral Routine Hematoma of right psoas 1 Occurrences starting REFERRAL region to anticoagulant 08/16 until therapy, initial 09/09/2019 encounter Physical deconditioning documented as of this encounter Visit Diagnoses Diagnosis Drug-induced constipation - Primary Other constipation Hematoma of right psoas region to antico agulant therapy, initial encounter Physical deconditioning Debility, unspecified Bilateral groin pain Abdominal pain, unspecified site Hypoplastic left heart syndrome documented in this encounter Care Teams Head Of Transport Logistics Relationship Specialty Start Date End Date Stephen Sauceda PCP - General Pediatrics 03/06/17 06/24/19 [facility] [address] [place] [address] documented as of this encounter
--- OUTSIDE RECORDS SUMMARY | 2022-04-10 09:56 | XMS_ITS | Encounter Summary ---
:2000 Author Organization [place] Address [facility] [place] [address] Care Team Providers Name Role Phone Stephen Sauceda Primary Care Provider Encounter Details Date Type Department Care Team Description 08/30/2018 Travel Social History Tobacco Use Types Packs/Day [...] Ancillary Procedure Cardiology Cordell Juarez MD [address] [place] [phone] (Wo rk) 07/27/2022 Office Visit Cardiology Cordell Juarez MD [address] [place] [phone] (Wo rk) documented as of this encounter Visit Diagnoses Not on filedocumented in this encounter Care Teams Chief Scientist Relationship Specialty Start Date End Date Stephen Sauceda PCP - General Pediatrics 03/06/17 06/24/19 [facility] [address] [place] [address] documented as of this encounter
--- OUTSIDE RECORDS SUMMARY | 2022-04-10 09:56 | XMS_ITS | Encounter Summary ---
:2000 Author Organization [facility] Address [address] [place] [id number] Care Team Providers Name Role Phone Stephen Sauceda Primary Care Provider Reason for Referral Rehab Therapy Physical Therapy - Closed Specialty Diagnoses / Procedures Referred By Contact Refer red To Contact Diagnoses Hematoma of right psoas region to anticoagulant therapy, initial encounter [facility] [address] [facility] [address] [place], [place] [address] [address] Referral ID Status Reason Start Date Expiration Date Visits Requ ested Visits Authorized [id number] Closed 09/04/2018 09/04/2019 1 1 Reason for Visit Reason Comments Abdominal Pain Auth/Cert Specialty Diagnoses / Procedures Referred By Contact Refer red To Contact Pediatrics Diagnoses Psoas hematoma, left, secondary to anticoagulant therapy, subsequent encounter Psoas hematoma, right, secondary to anticoagulant therapy [facility] [address] [place], [place] [address] [phone] Phone: Referral ID Status Reason Start Date Expiration Date Visits Requ ested Visits Authorized [id number] 1 1 Encounter Details Date Type Department Care Team Description 08/30/2018 - [facility] Guero Wynn MD [address] [facility] [address] [place] [address] Drug-induced constipation (Primary Dx); 09/05/2018 Encounter [facility] Pediatric Abi Zaldivra MD [address] [place] [address] Psoas hematoma, left, secondary to antic oagulant therapy, subsequent encounter; Medical Surgical Hematoma of right psoas region to anticoagulant therapy, initial encounter; Unit 6 skilled nursing (current) use of a nticoagulants [address] [place] [address] Social History Tobacco Use Types Packs/Day Years Used Date Smoking Tobacco: Never Comments: none at home Alcohol Use Standard Drinks/Week Comments No 0 (1 standard drink = 0.6 oz pure alcoho l) Sex Assigned at Date Recorded Male 03/09/2019 1:21 PM CDT documented as of this encounter Last Filed Vital Signs Vital Sign Reading Time Taken Comments Blood Pressure 127/73 09/05/2018 11:34 AM CDT Pulse 54 09/05/2018 9:00 AM CDT Temperature 36.8 ??C (98.3 ??F) 09/05/2018 11:34 AM CDT Respiratory Rate 24 09/05/2018 11:34 AM CDT Oxygen Saturation 98% 09/05/2018 11:34 AM CDT Inhaled Oxygen Concentration - - Weight 63.8 kg (140 lb 10.5 oz) 09/05/2018 4:00 AM CDT Height 162 cm (5' 3.78) 08/30/2018 6:00 PM CDT Body Mass Index 24.31 08/30/2018 6:00 PM CDT Body Mass Index Percentile 73.27 % 09/05/2018 4:00 AM CD T Growth Chart: CDC (Boys, 2-20 Years) documented in this encounter Discharge Summaries Roland Wells MD - 09/05/2018 3:54 PM CDT [facility] Discharge Summary Pediatric Cardiology Date of Admission: 08/30/2018 Date of Discharge: 09/05/2018 Discharging Provider: Dr. 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 He had catheter closure of his Fontan fenestration at the [facility] in January 2007. 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 He presented on 08/30 with worsening abdominal pain. His pain first startedas side pain on 08/20. It was thought at that time to be musculoskeletal in nature. On 08/21 he was seen at [facility] for worsening pain at which point he underwent a CT scan that showed a hematoma of his R psoas muscle. On 08/25 he returned to the hospital for increasing pain and a repeat CT at that time showed interval expansion of the hematoma within the psoas muscle. Dr. Juarez was consulted at that time and she recommended stopping his Warfarin to prevent further bleeding. At that time, his INR was 2.4 and his Hgb was 16. Since 08/25 his pain has continued to worsen and has spread more to his abdomen and pelvis. On the morning of admission, he felt that his stomach was more full and diffusely painful and he was unable to walk due to the pain. He also noticed that he was having some pain with urination. ?? He notes that the pain is worse with deep breathing and coughing. Even at rest he has some degree ofpain. He has been taking 1 dose of narco daily as well as tylenol but this has only been minimally affective. On the morning of admission he was no longer able to eat or drink. He denied vomiting, hematemesis, blood in his stool or urine. While in the ED at admission he additionally noticed some bruising and swelling of his scrotum which is new. He has no other rashes or discoloration. He denies any recent trauma or injuries. He has not participated in any contact sports recently. He denies any chest pain, recent fevers, or cold symptoms. He has had bleeding problems in the past with warfarin but that has mostly just been large hematomas to his extremities associated with mild traumas. This has not occurred in quite a few years. He has been otherwise well recently. He is followed by Dr. Juarez of cardiology. Hospital Course Right-sided Psoas Hematoma: Luke's hematoma was likely secondary to chronic warfarin therapy, which was discontinued on 08/25 due to concern for worsening hematoma. On admission, he had imaging and examfindings concerning for ongoing bleeding including worsening pain, scrotal bruising and CT findings of new retroperitoneal blood as well as interval growth of the hematoma. His hemoglobin and clinical picture were closely monitored. He remained hemodynamically stable and did not have any infectious symptoms concerning for secondary abscess. Surgery was consulted and determined no intervention was warranted. His pain was initially managed with morphine, which was transitioned to PO oxycodone on 08/31. Due to extreme headache and altered mental status on 09/01 his oxycodone was discontinued and switched to oral morphine. On 09/03 he was switched to MS contin BID which was well tolerated. His pain was additionally treated with scheduled tylenol and PRN diazepam. He is discharged home with this as well as a tapering schedule to follow. He will follow up in the [facility] clinic early next week. He continued on all of his home cardiovascular medications including digoxin 250 mcg, lasix 20 mg, metoprolol 25 mg, sildenafil 20 mg, and aldactone 25 mg. His warfarin was held and not restarted at time of discharge. He also continued on his home singulair and omeprazole. Neuro: On the morning of 09/01 he started complaining of severe headache, mental status alteration and unsteadiness on his feet. Due to concern for intracranial bleed he underwent a stat head CT. This was negative for any intracranial pathology. His symptoms were thought to be due to an adverse reaction to oxycodone plus zofran. His oxycodone was stopped and fluids were given with resolution of his symptoms. This problem did not recur during his hospitalization. GI: He developed significant opioid-induced constipation. He was managed with frequent Miralax and BID senna and was able to stool on 09/03. This bowel regimen was continued through discharge. : His scrotal hematoma and swelling continued to progress throughout his admission. This is a known consequence of retroperitoneal bleeds of this type. Urology was consulted who recommended scrotal elevation, compression shorts and a jock strap to help with pain and swelling. No interventions are recommended and this should resolve within the following weeks to 1 month. Significant Results and Procedures CT abdomen/pelvis (08/30): IMPRESSION: 1. 5 cm right iliacus intramuscular hematoma. 2. Small amount of retroperitoneal blood in the right lower quadrant. 3. Decreased hepatic attenuation, most commonly seen in the setting of hepatic steatosis. Several enhancing lesions scattered throughout the liver favor small venous malformations (liver hemangiomas). Comparison with prior studies to confirm stability would be useful. 4. Polysplenia. Hgb 08/31- 13.9 Hgb 09/01- 14.1 Immunization History Immunization Status: up to date and documented Pending Results None Primary Care Physician Stephen Sauceda Physical Exam Vital Signs with Ranges Temp: [97.8 ??F (36.6 ??C)-98.2 ??F (36.8 ??C)] 97.9 ??F (36.6 ??C) Pulse: [53] 53 Heart Rate: [51-63] 51 Resp: [11-20] 16 BP: (114-123)/(52-82) 114/66 SpO2: [95 %-98 %] 98 % I/O last 3 completed shifts: In: 1555.25 [P.O.:1210; I.V.:345.25] Out: 1100 [Urine:1100] GENERAL: Active, alert, in no acute distress. SKIN: Clear. No significant rash, abnormal pigmentation or lesions. Well healed surgical scars HEAD: Normocephalic EYES: Pupils equal, round, reactive, Extraocular muscles intact. Normal conjunctivae. NOSE: Normal without discharge. MOUTH/THROAT: Clear. No oral lesions. Teeth without obvious abnormalities. NECK: Supple, no masses. No thyromegaly. LYMPH NODES: No adenopathy LUNGS: Clear. No rales, rhonchi, wheezing or retractions HEART: Regular rhythm. Normal S1, single S2. I/ systolic flow murmur best appreciated on RLSB. Normal pulses. ABDOMEN: Soft, diffusely tender to palpation, not distended, no masses or hepatosplenomegaly. Bowel sounds normal. : stable scrotal edema NEUROLOGIC: No focal findings. Cranial nerves grossly intact: normal strength and tone. EXTREMITIES: Full range of motion, no deformities Time Spent on this Encounter I, Kevin Carrillo, personally saw the patient today and spent greater than 30 minutes discharging this patient. Discharge Disposition Discharged to: home Condition at discharge: Stable Consultations This Hospital Stay MEDICATION HISTORY IP PHARMACY CONSULT Discharge Orders Physical Therapy Referral Reason for your hospital stay Jude was admitted for pain control following a psoas hematoma with extension to his inguinal regionand scrotum. Follow Up and recommended labs and tests Follow up with PACCT in clinic within 1 week. Follow up with PCP within 2 weeks of discharge. Follow up with Dr. Juarez at next scheduled appointment time. Activity Your activity upon discharge: activity as tolerated and no driving for as long as you are taking opioids. When to contact your care team Call your primary doctor if you have any of the following: increased pain, inability to urinate, nostool x1 day. Discharge Instructions Continue to elevate scrotum while laying down. During the day use compression underwear or a jock strap to help alleviate pain and swelling. Full Code Diet Follow this diet upon discharge: Orders Placed This Encounter Peds Diet Age 9-18 yrs Continue to drink PLENTY of fluids Discharge Medications Current Discharge Medication List START taking these medications Details diazepam (VALIUM) 1 MG/ML solution Take 0.5-1 mLs (0.5-1 mg) by mouth every 6 hours as needed for muscle spasms or pain Qty: 14 mL, Refills: 0 Associated Diagnoses: Hematoma of right psoas region to anticoagulant therapy, initial encounter morphine (MS CONTIN) 15 MG CR tablet Take 2 tablets (30 mg) by mouth every 12 hours Step 1: 15 mg bymouth in the morning, 30 mg po in the evening for at least two days (longer if needing more than 2 PRNs in 24 hours), then Step 2: 15 mg by mouth twice daily for at least two days, then Step 3: 15 mg at bedtime for at least two days, then Stop extended-release morphine, continue as needed morphine only Qty: 32 tablet, Refills: 0 Associated Diagnoses: Hematoma of right psoas region to anticoagulant therapy, initial encounter morphine (MSIR) 15 MG IR tablet Take 0.5 tablets (7.5 mg) by mouth every 4 hours as needed for moderate to severe pain or breakthrough pain Qty: 15 tablet, Refills: 0 Associated Diagnoses: Hematoma of right psoas region to anticoagulant therapy, initial encounter polyethylene glycol (MIRALAX/GLYCOLAX) packet Take 17 g by mouth every 2 hours as needed for constipation Qty: 1000 g, Refills: 1 Associated Diagnoses: Drug-induced constipation sennosides (SENOKOT) 8.6 MG tablet Take 1 tablet by mouth 2 times daily Qty: 30 tablet, Refills: 0 Associated Diagnoses: Drug-induced constipation CONTINUE these medications which have CHANGED Details acetaminophen (TYLENOL) 500 MG tablet Take 1 tablet (500 mg) by mouth every 4 hours Qty: 60 tablet, Refills: 1 Associated Diagnoses: Hematoma of right psoas region to anticoagulant therapy, initial encounter CONTINUE these medications which have NOT CHANGED Details digoxin (LANOXIN) 250 MCG tablet Take 1 tablet (250 mcg) by mouth daily Qty: 30 tablet, Refills: 11 Associated Diagnoses: SVT (supraventricular tachycardia) (H) furosemide (LASIX) 20 MG tablet Take 0.5 tablets (10 mg) by mouth daily Qty: 15 tablet, Refills: 2 Associated Diagnoses: Hypoplastic left heart syndrome metoprolol succinate ER (TOPROL-XL) 25 MG 24 hr tablet TAKE ONE TABLET BY MOUTH ONE TIME DAILY Qty: 30 tablet, Refills: 2 Associated Diagnoses: Tachycardia montelukast (SINGULAIR) 10 MG tablet Take 10 mg by mouth At Bedtime omeprazole (PRILOSEC) 20 MG CR capsule Take 1 capsule twice daily for one week then once daily Qty: 90 capsule, Refills: 3 Associated Diagnoses: Chest pain, unspecified type sildenafil (REVATIO) 20 MG tablet Take 1 tablet (20 mg) by mouth three times daily for pulmonary hypertension. Never use with nitroglycerin, terazosin or doxazosin. Qty: 90 tablet, Refills: 11 Associated Diagnoses: Single ventricle with heterotaxia syndrome spironolactone (ALDACTONE) 25 MG tablet Take 1 tablet (25 mg) by mouth daily Qty: 30 tablet, Refills: 11 Associated Diagnoses: Hypoplastic left heart syndrome STOP taking these medications HYDROcodone-acetaminophen (NORCO) 5-325 MG tablet Comments: Reason for Stopping: warfarin (COUMADIN) 5 MG tablet Comments: Reason for Stopping: Allergies Allergies Allergen Reactions ??? Motrin [Ibuprofen] ??? Seasonal Allergies Itchy eyes, runny nose, hives when around tall grasses Data Results for orders placed or performed during the hospital encounter of 08/30/18 CT Abdomen Pelvis w Contrast Value Radiologist flags Hematomas (Urgent) Narrative EXAMINATION: CT ABDOMEN PELVIS W CONTRAST, 08/30/2018 2:22 PM TECHNIQUE: CT images from the lung bases through the symphysis pubis were obtained with contrast. CONTRAST DOSE: 100 ml Isovue 300 COMPARISON: CT 01/04/2016, radiograph 04/24/2018 HISTORY: CT scans 08/21, 08/25 @ OSH expanding hematoma w abdominal pain, history of being on warfarin FINDINGS: Partially seen postsurgical changes of cardiac surgery. Minimal amount of right middle lobe scarring or atelectasis. The liver is diffusely decreased in attenuation. There are several small enhancing lesions seen scattered throughout the liver. For example, in the periphery of the left hepatic lobe on series 2, image 27 there is a 6 mm lesion, and there are at least 3 lesions in the periphery of the right hepatic lobe, largest measuring 7 mm on image 24. Findings suggesting polysplenia, with at least 3 separate appearing spleen in the left upper quadrant. The pancreas is normal in appearance. Both adrenal glands and kidneys are normal. There is malrotation. The colon, including the cecum, is located in the left abdomen, with small bowel loops in the right abdomen. There are no abnormally dilated or thickened loops of small bowel or colon. There is asymmetric enlargement of the right iliac is muscle, with an ill-defined intramuscular lesion demonstrating some increased attenuation measuring approximately 3 x 2.5 cm on series 2, image 64. There is a second smaller area of hemorrhage in the right iliac is muscle on image 72, which may be in contiguity with the more superiorly located hemorrhage. On coronal imaging, this entire area measures approximately 5 cm. Additionally, there is fluid in the right lower quadrant, which appears retroperitoneal, and demonstrates mildly elevated Hounsfield units of 29. This can be best seen on coronal series 4, image 14. There are no concerning bone findings. The L5 vertebral body is narrower than adjacent lumbar vertebral bodies, however no acute fracture is suspected. Impression IMPRESSION: 1. 5 cm right iliacus intramuscular hematoma. 2. Small amount of retroperitoneal blood in the right lower quadrant. 3. Decreased hepatic attenuation, most commonly seen in the setting of hepatic steatosis. Several enhancing lesions scattered throughout the liver favor small venous malformations (liver hemangiomas). Comparison with prior studies to confirm stability would be useful. 4. Polysplenia. [Urgent Result: Hematomas] Finding was identified on 08/30/2018 2:[address] Lancaster was contacted by Dr. Ontiveros at 08/30/2018 2:31 PM and verbalized understanding of the urgent finding. I have personally reviewed the examination and initial interpretation and I agree with the findings. ELINA CASTELLANOS MD Head CT w/o contrast Narrative Head CT without contrast09/01/2018 11:58 AM History: Ped, headache, neuro deficit or signs of incr ICP. Comparison: none Technique: Axial images through the brain obtained without intravenous contrast, reviewed in bone, brain, and subdural windows. Findings: There is no evidence of intracranial hemorrhage. There is no mass-effect or midline shift. The ventricles do not appear enlarged out of proportion to the cerebral sulci. Hypoplastic right frontal sinus. Rest of the visualized portions of the paranasal sinuses and mastoid air cells are unremarkable on bone windows. Impression Impression: No acute intracranial pathology. I have personally reviewed the examination and initial interpretation and I agree with the findings. LEONILA VEGA MD Physician Attestation: I, Roland Wells, saw this patient with the fellow/resident and agree with the findings and plan ofcare as documented in this note. I have reviewed this patient's history, examined the patient and reviewed the vital signs, lab results, imaging and other diagnostic testing. I have discussed the plan of care with the patient and/or thier family and agree with the findings and recommendations outlined above. Roland Wells MD Regulatory Compliance Specialist of Pediatrics Pediatric Cardiology [facility] Date of Service (when I saw the patient): 09/05/18 documented in this encounter Medications at Time of Discharge Medication Sig Dispensed Refills Start Date End Date acetaminophen (TYLENOL) Take 1 tablet (500 60 tablet 1 08/1610/01/2018 500 MG mg) by mouth every 4 tabletIndications: hours Hematoma of right psoas region to anticoagulant therapy, initial encounter diazepam (VALIUM) 1 Take 0.5-1 mLs (0.5-1 14 mL 0 09/0410/01/2018 MG/ML mg) by mouth every 6 solutionIndications: hours as needed for Hematoma of right psoas muscle spasms or pain region to anticoagulant therapy, initial encounter digoxin (LANOXIN) 250 Take 1 tablet (250 30 tablet 11 201712/14/2018 MCG tabletIndications: mcg) by mouth daily SVT (supraventricular tachycardia) (H) furosemide (LASIX) 20 Take 0.5 tablets (10 15 tablet 2 08/201809/17/2018 MG tabletIndications: mg) by mouth daily Hypoplastic left heart syndrome metoprolol succinate ER TAKE ONE TABLET BY 30 tablet 2 08/201810/13/2018 (TOPROL-XL) 25 MG 24 hr MOUTH ONE TIME DAILY tabletIndications: Tachycardia montelukast (SINGULAIR) Take 10 mg by mouth 0 02/17/2020 10 MG tablet At Bedtime morphine (MS CONTIN) 15 Take 2 tablets (30 mg) by [facility] every 12 hours Step 1: 15 mg by mouth in the morning, 30 mg po in the evening for at least two days (longer if needing more than 2 PRNs in 24 hours), then 32 tablet 0 09/04/2018 09/08/2018 MG CR Step 2: 15 mg by mouth twice daily for at least two days, then tabletIndications: Step 3: 15 mg at bedtime for at least two days, t hen Hematoma of right psoas Stop extended-release morph ine, continue as needed morphine only region to anticoagulant therapy, initial encounter morphine (MSIR) 15 MG Take 0.5 tablets (7.5 15 tablet 0 10/01/2018 IR tabletIndications: mg) by mouth every 4 Hematoma of right psoas hours as needed for region to anticoagulant moderate to severe therapy, initial pain or breakthrough encounter pain omeprazole (PRILOSEC) Take 1 capsule twice 90 capsule 3 07/1909/09/2018 20 MG CR daily for one week capsuleIndications: then once daily Chest pain, unspecified type polyethylene glycol Take 17 g by mouth 1000 g 1 09/06/19 19 09/08/2018 (MIRALAX/GLYCOLAX) daily packetIndications: Drug-induced constipation sennosides (SENOKOT) Take 1 tablet by 30 tablet 0 9 10/01/2018 8.6 MG mouth 2 times daily tabletIndications: Drug-induced constipation sildenafil (REVATIO) 20 Take 1 tablet (20 mg) 90 tablet 11 0 06/21/2017 11/04/2019 MG tabletIndications: by mouth three times Single ventricle with daily for pulmonary heterotaxia syndrome hypertension. Never use with nitroglycerin, terazosin or doxazosin. spironolactone Take 1 tablet (25 mg) 30 tablet 11 09/25/2017 10/13/2018 (ALDACTONE) 25 MG by mouth daily tabletIndications: Hypoplastic left heart syndrome documented as of this encounter Progress Notes Jennifer Gallo RD - 09/05/2018 1:30 PM CDT Clinical Nutrition Services - brief note Chart review per LOS. Per discussion with team/RN, plans for discharge today. If remains in-patient and nutrition concerns arise, please consult ANDREWS. Jennifer Gallo RD, LD Pager: [phone] Kevin Carrillo MD - 09/04/2018 2:08 PM CDT [facility] Pediatric Cardiology Progress Note Date of Service (when I saw the patient): 09/04/2018 Assessment & Plan Jude Bills is a 18 year old male with a history of DORV, left ventricular hypoplasia, d-transposition and pulmonary stenosis s/p Fontan, Fortino and most recently closure of his Fortino fenestration in 2006 as well as heterotaxy syndrome, malrotation s/p repair, ADHD and depression who presented 08/30 with worsening pain in the setting of a R sided psoas hematoma. This is likely due to chronic warfarintherapy, although the hematoma has evolved since stopping warfarin (08/25). He does have imaging and exam findings concerning for ongoing bleeding including worsening pain, scrotal bruising and CT findings of new retroperitoneal blood as well as interval extension of the hematoma. He has no infectious symptoms concerning for secondary abscess. At this point, no intervention is warranted as he is otherwise hemodynamically stable. He requires inpatient admission for pain control, and monitoring for signs of rapid bleeding. ?? PLAN: CV -Continue home Digoxin 250 mcg -Continue home lasix 10 mg -Continue home metoprolol 25 mg -Continue home Sildenafil 20 mg -Continue home Aldactone 25 mg -HOLD home warfarin (stopped 08/25) ?? PULM -Continue home singulair ?? HEME - Surgery consulted- no plan for intervention at this time - appreciate further recommendations ?? NEURO #Leg, back and scrotal pain- no more localized to abdomen but continues to rate pain at an 8/10 -Tylenol 500 mg Q4H -MS Contin 30 mg Q12H -Diazepam 0.5-1 mg PO q6 PRN -PACCT consulted, appreciate further recommendations -PT consulted -Urology consulted -Recommend scrotal elevation, jock strap and tight underwear to help with scrotal pain and swelling ?? FEN/GI -Continue home omeprazole -Miralax 17 g with every drink (4-5x/day) -Senna BID -Regular diet ?? Access: PIV -saline locked Dispo: Pending adequate pain control likely 1-3 days Patient was discussed with attending physician, Dr. Priscilla Carrillo MD PGY-3 Pager: [phone] Interval History Pain improved yesterday after stooling. Continues to rate pain as a 4/10 in his abdomen. His area ofgreatest concern at this point is his scrotum with complaints of worsening edema and pain. He does feel like the change to MS contin is working but does feel a little loopy this AM. He continues to have some issues with difficult urination but is able to empty his bladder. Physical Exam Temp: 98 ??F (36.7 ??C) Temp src: Axillary BP: 116/66 Pulse: 62 Heart Rate: 60 Resp: 16 SpO2: 99 % O2 Device: None (Room air) Vitals: 09/02/18 0925 09/03/18 0654 09/04/18 1000 Weight: 65 kg (143 lb 4.8 oz) 63.6 kg (140 lb 3.4 oz) 63.3 kg (139 lb 8.8 oz) Vital Signs with Ranges Temp: [97 ??F (36.1 ??C)-98.7 ??F (37.1 ??C)] 98 ??F (36.7 ??C) Pulse: [62-68] 62 Heart Rate: [60-70] 60 Resp: [14-20] 16 BP: (95-124)/(59-75) 116/66 SpO2: [95 %-99 %] 99 % I/O last 3 completed shifts: In: 1430 [P.O.:1430] Out: 1250 [Urine:1250] GENERAL: Active, alert, in no acute distress. SKIN: Clear. No significant rash, abnormal pigmentation or lesions HEENT: Normocephalic. EOMI. Normal conjunctiva, Normal external ears, No oral lesions. Moist mucous membranes. LUNGS: Clear. No rales, rhonchi, wheezing or retractions HEART: Regular rhythm. Normal S1/S2. Grade 2/6 systolic ejection murmur best appreciated at LUSB. Normal pulses. ABDOMEN: Soft, Tender to palpation in periumbilical region. No masses appreciated. Well healed midline surgical scar. : Scrotal erythema and increased swelling from last exam- approximately baseball sized EXTREMITIES: Full range of motion, no deformities Medications ??? sodium chloride Stopped (08/31/18 1245) ??? acetaminophen 500 mg Oral Q4H ??? digoxin 250 mcg Oral Daily ??? furosemide 10 mg Oral Daily ??? metoprolol succinate ER 25 mg Oral Daily ??? montelukast 10 mg Oral At Bedtime ??? morphine 30 mg Oral Q12H HUBER ??? omeprazole 20 mg Oral QAM AC ??? sennosides 8.6 mg Oral BID ??? sildenafil 20 mg Oral TID ??? sodium chloride (PF) 3 mL Intracatheter Q8H ??? spironolactone 25 mg Oral Daily Data No results found for this or any previous visit (from the past 24 hour(s)). Associated attestation - Roland Wells MD - 10/16/2018 2:48 AM CDT Physician Attestation: I, Roland Wells, saw this patient with the fellow/resident and agree with the findings and plan ofcare as documented in this note. I have reviewed this patient's history, examined the patient and reviewed the vital signs, lab results, imaging and other diagnostic testing. I have discussed the plan of care with the patient and/or thier family and agree with the findings and recommendations outlined above. Roland Wells MD Regulatory Compliance Specialist of Pediatrics Pediatric Cardiology [facility] Date of Service (when I saw the patient): 09/04/18 Yasmin Garcia, JONATHAN MARRIAGE AND FAMILY COUNSELOR - 09/04/2018 8:21 AM CDT Images from the original note were not included. Pediatric Pain & Advanced/Complex Care Team (PACCT) Pain Management Daily Progress Note Jude Bills Age: [age] year old Date of : 2000 Date: 09/04/2018 Primary care provider: Stephen Sauceda ASSESSMENT, DIAGNOSIS & RECOMMENDATIONS Assessment Jude Bills is a 18 year old male with a history of complex congenital heart disease and psoas hematoma thought to be related to anticoagulant therapy. Headache is overall much improved. Continues toreport difficulty initiating urine stream and occasional inability to void, though less urgency and able to empty bladder. 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 Recommendations - continue to assess tolerance of activity, comfort measures which are effective - agree with urology consultation to see if they can offer additional suggestions to reduce scrotal swelling and discomfort - discussed planning for school with mom, including discussing administration of controlled substances (specifically morphine) at school. They will likely need a letter for additional school acomodations upon discharge - suggested morphine taper as below - follow up with Dr. Rolon or myself next week in clinic, this has been requested - if he discharges, primary cardiology team or PCP should be his first point of contact for increased symptoms. Our team can be available to medical team via pager for questions ?? Pain: NON-PHARMACOLOGICAL INTERVENTIONS - Age-appropriate distraction - Parental involvement - Allow choices where permitted, positioning, rapport builiding - Cognitive: auditory stimuli (e.g. tablets), control, controlled breathing, distraction, imagery, hypnosis (by trained provider only), modeling, relaxation, prepare for coping techniques and/or teaching procedures, relaxation - Biophysical: environmental modification, holding, touching, massage, heat or cold application - Distraction: music, TV, video games, guided imagery, deep breathing, conversation Other considerations: Older patients may or may not want caregiver presence. Establish rapport to increase cooperation. Allow to watch procedure, if requested ?? SIMPLE ANALGESIA - acetaminophen 500 mg scheduled Q4h - NSAIDs contraindicated ?? OPIOID THERAPY - Continue morphine ER (MS Contin) 30 mg po BID, please prescribe 15 mg tablets on discharge to allow for tapering. He should be given specific instructions not to stop this medication abruptly. - If pain improves as healing occurs or if he experiences increased sleepiness during the daytime following doses, would taper extended-release morphine as follows: Step 1: 15 mg by mouth in the morning, 30 mg po in the evening for at least two days (longer if needing more than 2 PRNs in 24 hours), then Step 2: 15 mg by mouth twice daily for at least two days, then Step 3: 15 mg at bedtime for at least two days, then Stop extended-release morphine, continue as needed morphine only - Continue to have an additional 7.5 [...] occurs, he should contact his primary team ?? ADJUVANT ANALGESIA - if urinary catheterization is needed, please use topical lidocaine gel for comfort with placement - diazepam 0.5-1 mg po Q6h PRN (use lower dose during the daytime due to mild sedation with initialdose) while inpatient, prescribe 0.5 mg po Q6h PRN on discharge ?? SIDE-EFFECT MANAGEMENT Constipation: continue scheduled miralax + senna Pruritus: not currently problematic. Note that opioid-induced pruritus is NOT a histamine-mediated reaction, therefore antihistamines (such as diphenhydramine/Benadryl??) are generally ineffective in resolving this symptom. Urinary retention: opioid rotation as above. Consider methylnaltrexone 8 mg subcutaneous x1 for urinary retention Nausea: consider prochlorperazine as an alternative to ondansetron due to headache as known adverse effect to ondansetron ?? The above recommendations are based on the WHO Guidelines for the Pharmacological Treatment of Persisting Pain in Children with Medical Illnesses: (1) using a two-step strategy, (2) dosing at regular intervals, (3) using the appropriate route of administration, and (4) adapting treatment to the individ ual child (available at: http://apps.who.int/iris/bitstream/06779/38014/1/9789241548120_Guidelines.pdf). Thank you for the opportunity to participate in the care of this patient and family. Please contact the Pain and Advanced/Complex Care Team (PACCT) with any emergent needs via text pageto the PACCT general pager ([phone], answered 8-4:30 Saturday to Saturday). After hours and on weekends/holidays, please refer to [facility] or [place] on-call. The above assessment and plan was discussed with the care team. A total of 35 minutes were spent [id number] or in the coordination care of Jude Bills. Greater than 50% of my time on the unit was spent counseling the patient and/or coordinating care. Yasmin Garcia NP Pain and Advanced/Complex Care Team (PACCT) [facility] Pager: SUBJECTIVE: Interim History Improved pain with changes yesterday, mom reports that he does seem a little more high today. [employer] work with PT. Monitoring tolerance of increased activity today, possible discharge later today vs. tomorrow OBJECTIVE: Last 24 hours VITALS: Reviewed; all vital signs were within normal limits for age. INS/OUTS: Taking PO? yes Bowel movements? no (Last documented bowel movement: prior to admission) PAIN (NR scale): 4-6/10 (reports 1-3 is manageable) Current Medications I have reviewed this patient's medication profile and medications during this hospitalization. Medications related to this consult are as follows: PRN use: morphine x1 yesterday morning, diazepam x1 last night Medications related to Pain Management (From now, onward) Start Dose/Rate Route Frequency Ordered Stop 09/03/181999 morphine (MS CONTIN) 12 hr tablet 30 mg 30 mg Oral EVERY 12 HOURS SCHEDULED 09/03/18 1407 09/03/18 1130 polyethylene glycol (MIRALAX/GLYCOLAX) Packet 17 g 17 g Oral EVERY 2 HOURS PRN 09/03/18 1118 09/02/181999 sennosides (SENOKOT) tablet 8.6 mg 8.6 mg Oral 2 TIMES DAILY 09/02/18191109/02/18 194 acetaminophen (TYLENOL) tablet 500 mg 500 mg Oral EVERY 4 HOURS 09/02/18191109/02/18 1507 diazepam (VALIUM) solution 0.5-1 mg 0.5-1 mg Oral EVERY 6 HOURS PRN 09/02/18 1507 09/01/18 1241 morphine (MSIR) IR half-tab 7.5 mg 7.5 mg Oral EVERY 4 HOURS PRN 09/01/18 1243 Review of Systems A comprehensive review of systems was performed, and was negative other than what was described above. Physical Examination General: Alert, awake, NAD. Sitting up in chair HEENT: NC/AT, No masses, lesions, tenderness or abnormalities; PERRL, EOMI. Sclera non-icteric, non-injected. Conjunctivae pink without discharge. External ears normal. Nares without discharge. MMM. Oropharynx clear. Normal dentition. Neck supple, with full ROM. No cervical LAD. Cardiovascular: RRR, Physiologic S1/S2, No m/g/r. Respiratory: CTAB, No increased WOB, No inter- or sub-costal retractions. Gastrointestinal: Abdomen soft, mildly tender, non-distended. Normoactive BS. No organomegaly or masses felt. Genitourinary: Scrotal edema assessed with cardiology resident, scrotum and right groin tender to light palpation, extending medially to uppermost portion of right leg Extremities: No deformity. Capillary refill <2 seconds. No peripheral edema. Skin: No suspicious bruises, lesions or rashes. Psych/Neuro: Alert & oriented to person, place, time and situation. Cranial nerves II-XI grosslyintact. Strength 5/5 in all extremities. Mentation and affect slightly drowsy but responds appropriately to questions. Laboratory/Imaging/Pathology No results found for this or any previous visit (from the past 24 hour(s)). Yasmin Garcia APRN CNP - 09/03/2018 5:04 PM CDT Images from the original note were not included. Pediatric Pain & Advanced/Complex Care Team (PACCT) Pain Management Daily Progress Note Jude Bills Age: [age] year old Date of : 2000 Date: 09/03/2018 Primary care provider: Stephen Sauceda ASSESSMENT, DIAGNOSIS & RECOMMENDATIONS Assessment Jude Bills is a 18 year old male with a history of complex congenital heart disease and psoas hematoma thought to be related to anticoagulant therapy. Headache is now resolved. Continues to report difficulty initiating urine stream, though less urgency and able to empty bladder. Mental status much i mproved, pain improving. 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 Recommendations - change to MS Contin as below; goal to improve variability in analgesia ?? Pain: NON-PHARMACOLOGICAL INTERVENTIONS - Age-appropriate distraction - Parental involvement - Allow choices where permitted, positioning, rapport builiding - Cognitive: auditory stimuli (e.g. tablets), control, controlled breathing, distraction, imagery, hypnosis (by trained provider only), modeling, relaxation, prepare for coping techniques and/or teaching procedures, relaxation - Biophysical: environmental modification, holding, touching, massage, heat or cold application - Distraction: music, TV, video games, guided imagery, deep breathing, conversation Other considerations: Older patients may or may not want caregiver presence. Establish rapport to increase cooperation. Allow to watch procedure, if requested ?? SIMPLE ANALGESIA - acetaminophen 500 mg scheduled Q4h - NSAIDs contraindicated ?? OPIOID THERAPY - beginning at 2000 tonight, discontinue scheduled IR morphine and start morphine ER (MS Contin) 30mg po BID - Continue to have an additional 7.5 mg available Q4h PRN for breakthrough pain. Note: 15 mg of oralmorphine is roughly equivalent to 10 mg of oxycodone - if frequent PRN use AND patient continues to have baseline mental status, may increase scheduled morphine to 15 mg po Q4h - if increased somnolence/sedation with above dose, offer patient 7.5 mg po Q4h (1/2 tab) OR 10 mg po Q6h (solution only - he did not want this upon discussion today)) ?? ADJUVANT ANALGESIA - if urinary catheterization is needed, please use topical lidocaine gel for comfort with placement - diazepam 0.5-1 mg po Q6h PRN (use lower dose during the daytime due to mild sedation with initialdose) ?? SIDE-EFFECT MANAGEMENT Constipation: continue scheduled miralax + senna Pruritus: not currently problematic. Note that opioid-induced pruritus is NOT a histamine-mediated reaction, therefore antihistamines (such as diphenhydramine/Benadryl??) are generally ineffective in resolving this symptom. Urinary retention: opioid rotation as above. Consider methylnaltrexone 8 mg subcutaneous x1 for urinary retention Nausea: consider prochlorperazine as an alternative to ondansetron due to headache as known adverse effect to ondansetron ?? The above recommendations are based on the WHO Guidelines for the Pharmacological Treatment of Persisting Pain in Children with Medical Illnesses: (1) using a two-step strategy, (2) dosing at regular intervals, (3) using the appropriate route of administration, and (4) adapting treatment to the individ ual child (available at: http://apps.who.int/iris/bitstream/38043/53412/1/9789241548120_Guidelines.pdf). Thank you for the opportunity to participate in the care of this patient and family. Please contact the Pain and Advanced/Complex Care Team (PACCT) with any emergent needs via text pageto the PACCT general pager ([phone], answered 8-4:30 Saturday to Saturday). After hours and on weekends/holidays, please refer to [facility] or [place] on-call. The above assessment and plan was discussed with the care team. A total of 35 minutes were spent [id number] or in the coordination care of Jude Bills. Greater than 50% of my time on the unit was spent counseling the patient and/or coordinating care. Yasmin Garcia NP Pain and Advanced/Complex Care Team (PACCT) [facility] Pager: SUBJECTIVE: Interim History Pain improving overall, increased abdominal pain (vs. Leg/penis/groin) this morning now improved post bowel movement. Headache not present today. OBJECTIVE: Last 24 hours VITALS: Reviewed; all vital signs were within normal limits for age. INS/OUTS: Taking PO? yes Bowel movements? no (Last documented bowel movement: prior to admission) PAIN (NR scale): 4/10 (reports 1-3 is manageable) Current Medications I have reviewed this patient's medication profile and medications during this hospitalization. Medications related to this consult are as follows (with PRN use indicated from 08:00 yesterday morning to08:00 this morning): Medications related to Pain Management (From now, onward) Start Dose/Rate Route Frequency Ordered Stop 09/03/181999 morphine (MS CONTIN) 12 hr tablet 30 mg 30 mg Oral EVERY 12 HOURS SCHEDULED 09/03/18 1407 09/03/18 1130 polyethylene glycol (MIRALAX/GLYCOLAX) Packet 17 g 17 g Oral EVERY 2 HOURS PRN 09/03/18 1118 09/02/181999 sennosides (SENOKOT) tablet 8.6 mg 8.6 mg Oral 2 TIMES DAILY 09/02/18191109/02/18 194 acetaminophen (TYLENOL) tablet 500 mg 500 mg Oral EVERY 4 HOURS 09/02/18191109/02/18 1507 diazepam (VALIUM) solution 0.5-1 mg 0.5-1 mg Oral EVERY 6 HOURS PRN 09/02/18 1507 09/01/18 1241 morphine (MSIR) IR half-tab 7.5 mg 7.5 mg Oral EVERY 4 HOURS PRN 09/01/18 1243 Review of Systems A comprehensive review of systems was performed, and was negative other than what was described above. Physical Examination General: Alert, awake, NAD. Sitting up in chair HEENT: NC/AT, No masses, lesions, tenderness or abnormalities; PERRL, EOMI. Sclera non-icteric, non-injected. Conjunctivae pink without discharge. External ears normal. Nares without discharge. MMM. Oropharynx clear. Normal dentition. Neck supple, with full ROM. No cervical LAD. Cardiovascular: RRR, Physiologic S1/S2, No m/g/r. Respiratory: CTAB, No increased WOB, No inter- or sub-costal retractions. Gastrointestinal: Abdomen soft, mildly tender, non-distended. Normoactive BS. No organomegaly or masses felt. Genitourinary: Deferred at patient's request Extremities: No deformity. Capillary refill <2 seconds. No peripheral edema. Skin: No suspicious bruises, lesions or rashes. Psych/Neuro: Alert & oriented to person, place, time and situation. Cranial nerves II-XI grosslyintact. Strength 5/5 in all extremities. Mentation and affect normal. Laboratory/Imaging/Pathology No results found for this or any previous visit (from the past 24 hour(s)). Celeste Palacios - 09/03/2018 11:00 AM CDT SPIRITUAL HEALTH SERVICES Progress Note [facility] ([facility] [place] 6th floor REFERRAL SOURCE: Follow-up visit based on previous folder hand's surgical visit. On this visit, met with pt and his Mom, introduced myself as the unit folder hand. Pt and Mom were bothpleasant, shared that their bushing and broach operator had been up to see them and that they had no currents need of spiritual health. Advised family how to request a SH visit if needs change. PLAN: Mixed Signal Design Engineer remains available per pt/family/staff request. Rev. Celeste Alex MDiv. 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 This is likely due to chronic warfarintherapy, although the hematoma has evolved since stopping warfarin (08/25). He does have imaging and exam findings concerning for ongoing bleeding including worsening pain, scrotal bruising and CT findings of new retroperitoneal blood as well as interval extension of the hematoma. He has no infectious symptoms concerning for secondary abscess. At this point, no intervention is warranted as he is otherwise hemodynamically stable. He requires inpatient admission for pain control, and monitoring for signs of rapid bleeding. ?? PLAN: CV -Continue home Digoxin 250 mcg -Continue home lasix 10 mg -Continue home metoprolol 25 mg -Continue home Sildenafil 20 mg -Continue home Aldactone 25 mg -HOLD home warfarin (stopped 08/25) ?? PULM -Continue home singulair ?? HEME - Hgb uptrended today- recheck if clinically indicated - Surgery consulted- no plan for intervention at this time - appreciate further recommendations ?? NEURO #Leg, back and scrotal pain- no more localized to abdomen but continues to rate pain at an 8/10 -Tylenol 500 mg Q4H -Morphine 15 mg PO q6H+ q4HPRN -Diazepam 0.5-1 mg PO q6 PRN -PACCT consulted, appreciate further recommendations -PT consulted ?? FEN/GI -Continue home omeprazole -Miralax 17 g with every drink (4-5x/day) -Senna BID -Regular diet ?? Access: PIV -saline locked Dispo: Pending adequate pain control likely 1-3 days Patient was discussed with attending physician, Dr. Priscilla Carrillo MD PGY-3 Pager: [phone] Interval History Pain stable overnight with available medications. He continues to rate his pain at around an 8/10 but now localizes it more to his mid abdomen. He started having some shakiness in the evening and requested a bolus of fluids- 500 ml was given. He required 2 PRNs of morphine and 1 PRN of diazepam. He continues to have complaints of difficulty with urination but is able to empty his bladder based on bladder scan. Scrotal swelling seems stable. He continues to have no stool output despite increased bowel regimen. His vitals are stable within parameters. He continues to eat and drink well. Physical Exam Temp: 97.6 ??F (36.4 ??C) Temp src: Oral BP: 116/74 Pulse: 62 Heart Rate: 54 Resp: 16 SpO2: 97 % O2 Device: None (Room air) Vitals: 09/01/18 0600 09/02/18 0925 09/03/18 0654 Weight: 64.8 kg (142 lb 13.7 oz) 65 kg (143 lb 4.8 oz) 63.6 kg (140 lb 3.4 oz) Vital Signs with Ranges Temp: [97.6 ??F (36.4 ??C)-98.2 ??F (36.8 ??C)] 97.6 ??F (36.4 ??C) Pulse: [62] 62 Heart Rate: [45-71] 54 Resp: [16-20] 16 BP: (110-130)/(56-77) 116/74 SpO2: [97 %-99 %] 97 % I/O last 3 completed shifts: In: 3086 [P.O.:2580; I.V.:6; IV Piggyback:500] Out: 3620 [Urine:3620] GENERAL: Active, alert, in no acute distress. SKIN: Clear. No significant rash, abnormal pigmentation or lesions HEENT: Normocephalic. EOMI. Normal conjunctiva, Normal external ears, No oral lesions. Moist mucous membranes. LUNGS: Clear. No rales, rhonchi, wheezing or retractions HEART: Regular rhythm. Normal S1/S2. Grade 2/6 systolic ejection murmur best appreciated at LUSB. Normal pulses. ABDOMEN: Soft, Tender to palpation in periumbilical region. No masses appreciated. Well healed midline surgical scar. EXTREMITIES: Full range of motion, no deformities Medications ??? sodium chloride Stopped (08/31/18 1245) ??? acetaminophen 500 mg Oral Q4H ??? digoxin 250 mcg Oral Daily ??? furosemide 10 mg Oral Daily ??? metoprolol succinate ER 25 mg Oral Daily ??? montelukast 10 mg Oral At Bedtime ??? morphine 15 mg Oral Q6H ??? omeprazole 20 mg Oral QAM AC ??? polyethylene glycol 17 g Oral TID ??? sennosides 8.6 mg Oral BID ??? sildenafil 20 mg Oral TID ??? sodium chloride (PF) 3 mL Intracatheter Q8H ??? spironolactone 25 mg Oral Daily Data No results found for this or any previous visit (from the past 24 hour(s)). Associated attestation - Roland Wells MD - 10/16/2018 2:48 AM CDT Physician Attestation: I, Roland Wells, saw this patient with the fellow/resident and agree with the findings and plan ofcare as documented in this note. I have reviewed this patient's history, examined the patient and reviewed the vital signs, lab results, imaging and other diagnostic testing. I have discussed the plan of care with the patient and/or thier family and agree with the findings and recommendations outlined above. Roland Wells MD Regulatory Compliance Specialist of Pediatrics Pediatric Cardiology [facility] Date of Service (when I saw the patient): 09/03/18 Yasmin Garcia APRN [facility] - 09/02/2018 4:06 PM CDT Images from the original note were not included. Pediatric Pain & Advanced/Complex Care Team (PACCT) Pain Management Daily Progress Note Jude Bills Age: [age] year old Date of : 2000 Date: 09/02/2018 Primary care provider: Stephen Sauceda ASSESSMENT, DIAGNOSIS & RECOMMENDATIONS Assessment Jude Bills is a 18 year old male with a history of complex congenital heart disease and psoas hematoma thought to be related to anticoagulant therapy. Headache is overall much improved. Mental status much improved, pain slightly increased today as compared with yesterday. 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 Recommendations - adjust morphine and diazepam as below ?? Pain: NON-PHARMACOLOGICAL INTERVENTIONS - Age-appropriate distraction - Parental involvement - Allow choices where permitted, positioning, rapport builiding - Cognitive: auditory stimuli (e.g. tablets), control, controlled breathing, distraction, imagery, hypnosis (by trained provider only), modeling, relaxation, prepare for coping techniques and/or teaching procedures, relaxation - Biophysical: environmental modification, holding, touching, massage, heat or cold application - Distraction: music, TV, video games, guided imagery, deep breathing, conversation Other considerations: Older patients may or may not want caregiver presence. Establish rapport to increase cooperation. Allow to watch procedure, if requested ?? SIMPLE ANALGESIA - acetaminophen 500 mg scheduled Q4h - NSAIDs contraindicated ?? OPIOID THERAPY - increase morphine to 15 mg po q6h scheduled (time with acetaminophen to minimize disturbing him).Continue to have an additional 7.5 mg available Q4h PRN for breakthrough pain. Note: 15 mg of oral morphine is roughly equivalent to 10 mg of oxycodone - if frequent PRN use AND patient continues to have baseline mental status, may increase scheduled morphine to 15 mg po Q4h - if increased somnolence/sedation with above dose, offer patient 7.5 mg po Q4h (1/2 tab) OR 10 mg po Q6h (solution only - he did not want this upon discussion today)) ?? ADJUVANT ANALGESIA - discontinue gabapentin - if urinary catheterization is needed, please use topical lidocaine gel for comfort with placement - diazepam 0.5-1 mg po Q6h PRN (use lower dose during the daytime due to mild sedation with initialdose) ?? SIDE-EFFECT MANAGEMENT Constipation: continue scheduled miralax + senna Pruritus: not currently problematic. Note that opioid-induced pruritus is NOT a histamine-mediated reaction, therefore antihistamines (such as diphenhydramine/Benadryl??) are generally ineffective in resolving this symptom. Urinary retention: opioid rotation as above. Consider methylnaltrexone 8 mg subcutaneous x1 for urinary retention Nausea: consider prochlorperazine as an alternative to ondansetron due to headache as known adverse effect to ondansetron ?? The above recommendations are based on the WHO Guidelines for the Pharmacological Treatment of Persisting Pain in Children with Medical Illnesses: (1) using a two-step strategy, (2) dosing at regular intervals, (3) using the appropriate route of administration, and (4) adapting treatment to the individ ual child (available at: http://apps.who.int/iris/ojtream/44581/07225/[email or web address]_Guidelines.pdf). Thank you for the opportunity to participate in the care of this patient and family. Please contact the Pain and Advanced/Complex Care Team (PACCT) with any emergent needs via text pageto the PACCT general pager ([phone], answered 8-4:30 Saturday to Saturday). After hours and on weekends/holidays, please refer to [facility] or [place] on-call. The above assessment and plan was discussed with the care team. A total of 35 minutes were spent [id number] or in the coordination care of Jude Bills. Greater than 50% of my time on the unit was spent counseling the patient and/or coordinating care. Yasmin Garcia NP Pain and Advanced/Complex Care Team (PACCT) [facility] Pager: SUBJECTIVE: Interim History Mental status much improved today. He does not remember much of yesterday morning, including meetingthis write. Pain stable overnight, increased today and he is requesting PRNs ahead of planned changeto Q6h frequency. Mild frontal headache upon waking, now resolved. Up and ambulating. Working towards discharge to home in the coming days OBJECTIVE: Last 24 hours VITALS: Reviewed; all vital signs were within normal limits for age. INS/OUTS: Taking PO? yes Bowel movements? no (Last documented bowel movement: prior to admission) PAIN (NR scale): 7/10 (reports 1-3 is manageable) Current Medications I have reviewed this patient's medication profile and medications during this hospitalization. Medications related to this consult are as follows (with PRN use indicated from 08:00 yesterday morning to08:00 this morning): Medications related to Pain Management (From now, onward) Start Dose/Rate Route Frequency Ordered Stop 09/02/181999 polyethylene glycol (MIRALAX/GLYCOLAX) Packet 17 g 17 g Oral 2 TIMES DAILY 09/02/18 1037 09/02/18 1600 morphine (MSIR) IR half-tab 15 mg 15 mg Oral EVERY 6 HOURS 09/02/18 1456 09/02/18 1541 acetaminophen (TYLENOL) tablet 650 mg 650 mg Oral EVERY 6 HOURS 09/02/18 1301 09/02/18 1507 diazepam (VALIUM) solution 0.5-1 mg 0.5-1 mg Oral EVERY 6 HOURS PRN 09/02/18 1507 09/02/18 1045 sennosides (SENOKOT) tablet 8.6 mg 8.6 mg Oral DAILY 09/02/18 1037 09/01/18 1241 morphine (MSIR) IR half-tab 7.5 mg 7.5 mg Oral EVERY 4 HOURS PRN 09/01/18 1243 Review of Systems A comprehensive review of systems was performed, and was negative other than what was described above. Physical Examination General: Alert, awake, NAD. Sitting up in chair HEENT: NC/AT, No masses, lesions, tenderness or abnormalities; PERRL, EOMI. Sclera non-icteric, non-injected. Conjunctivae pink without discharge. External ears normal. Nares without discharge. MMM. Oropharynx clear. Normal dentition. Neck supple, with full ROM. No cervical LAD. Cardiovascular: RRR, Physiologic S1/S2, No m/g/r. Respiratory: CTAB, No increased WOB, No inter- or sub-costal retractions. Gastrointestinal: Abdomen soft, mildly tender, non-distended. Normoactive BS. No organomegaly or masses felt. Genitourinary: Deferred at patient's request Extremities: No deformity. Capillary refill <2 seconds. No peripheral edema. Skin: No suspicious bruises, lesions or rashes. Psych/Neuro: Alert & oriented to person, place, time and situation. Cranial nerves II-XI grosslyintact. Strength 5/5 in all extremities. Mentation and affect normal. Laboratory/Imaging/Pathology No results found for this or any previous visit (from the past 24 hour(s)). 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 This is likely due to chronic warfarintherapy, although the hematoma has evolved since stopping warfarin (08/25). He does have imaging and exam findings concerning for ongoing bleeding including worsening pain, scrotal bruising and CT findings of new retroperitoneal blood as well as interval extension of the hematoma. He has no infectious symptoms concerning for secondary abscess. At this point, no intervention is warranted as he is otherwise hemodynamically stable. He requires inpatient admission for pain control, and monitoring for signs of rapid bleeding. ?? PLAN: CV -Continue home Digoxin 250 mcg -Continue home lasix 10 mg -Continue home metoprolol 25 mg -Continue home Sildenafil 20 mg -Continue home Aldactone 25 mg -HOLD home warfarin (stopped 08/25) ?? PULM -Continue home singulair ?? HEME - Hgb uptrended today- recheck if clinically indicated - Surgery consulted- no plan for intervention at this time - appreciate further recommendations ?? NEURO #Leg, back and scrotal pain #Altered mental status, headache, unsteadiness- likely reaction to oxycodone as head CT was negative. Rotated to morphine and will hold off on further oxycodone administration -Tylenol 500 mg Q4H -Morphine 7.5 mg PO q6H+ q4HPRN -Diazepam 1 mg PO q6 PRN -PACCT consulted, appreciate further recommendations -PT consulted ?? FEN/GI -Continue home omeprazole -Increase miralax to BID -Daily senna -Regular diet ?? Access: PIV -saline locked Dispo: Pending adequate pain control likely 1-3 days Patient was discussed with attending physician, Dr. Priscilla Carrillo MD PGY-3 Pager: [phone] Interval History Pain stable overnight. Able to tolerate spacing of pain medications to q6H overnight. Required two doses of valium for muscle spasm/pain. Continues to have difficulty with urination but denies pain. Heis having adequate urine output and is tolerating PO. Physical Exam Temp: 97.4 ??F (36.3 ??C) Temp src: Oral BP: 121/62 Pulse: 67 Heart Rate: 65 Resp: 20 SpO2: 97 % O2 Device: None (Room air) Vitals: 08/30/18 1800 08/31/18 0410 09/01/18 0600 Weight: 62.7 kg (138 lb 3.7 oz) 64 kg (141 lb 1.5 oz) 64.8 kg (142 lb 13.7 oz) Vital Signs with Ranges Temp: [97.4 ??F (36.3 ??C)-98.2 ??F (36.8 ??C)] 97.4 ??F (36.3 ??C) Pulse: [53-101] 67 Heart Rate: [65-86] 65 Resp: [12-20] 20 BP: (108-128)/(60-68) 121/62 SpO2: [90 %-97 %] 97 % I/O last 3 completed shifts: In: 2720 [P.O.:1720; IV Piggyback:1000] Out: 2700 [Urine:2700] GENERAL: Active, alert, in no acute distress. SKIN: Clear. No significant rash, abnormal pigmentation or lesions HEENT: Normocephalic. EOMI. Normal conjunctiva, Normal external ears, No oral lesions. Moist mucous membranes. LUNGS: Clear. No rales, rhonchi, wheezing or retractions HEART: Regular rhythm. Normal S1/S2. Grade 2/6 systolic ejection murmur best appreciated at LUSB. Normal pulses. ABDOMEN: Soft, Tender to palpation in periumbilical region. No masses appreciated. Well healed midline surgical scar. EXTREMITIES: Full range of motion, no deformities Medications ??? sodium chloride Stopped (08/31/18 1245) ??? acetaminophen 500 mg Oral Q4H ??? digoxin 250 mcg Oral Daily ??? furosemide 10 mg Oral Daily ??? gabapentin 300 mg Oral TID ??? metoprolol succinate ER 25 mg Oral Daily ??? montelukast 10 mg Oral At Bedtime ??? morphine 7.5 mg Oral Q4H ??? omeprazole 20 mg Oral QAM AC ??? polyethylene glycol 17 g Oral Daily ??? sildenafil 20 mg Oral TID ??? sodium chloride (PF) 3 mL Intracatheter Q8H ??? spironolactone 25 mg Oral Daily Data Results for orders placed or performed during the hospital encounter of 08/30/18 (from the past 24 hour(s)) UA with Microscopic reflex to Culture Result Value Ref Range Color Urine Yellow Appearance Urine Clear Glucose Urine Negative NEG^Negative mg/dL Bilirubin Urine Negative NEG^Negative Ketones Urine Negative NEG^Negative mg/dL Specific [place] Urine 1.016 1.003 - 1.035 Blood Urine Negative NEG^Negative pH Urine 5.5 5.0 - 7.0 pH Protein Albumin Urine Negative NEG^Negative mg/dL Urobilinogen mg/dL Normal 0.0 - 2.0 mg/dL Nitrite Urine Negative NEG^Negative Leukocyte Esterase Urine Negative NEG^Negative Source Midstream Urine WBC Urine 1 0 - 5 /HPF RBC Urine 0 0 - 2 /HPF Mucous Urine Present (A) NEG^Negative /LPF Associated attestation - Roland Wells MD - 10/16/2018 2:47 AM CDT Physician Attestation: I, Roland Wells, saw this patient with the fellow/resident and agree with the findings and plan ofcare as documented in this note. I have reviewed this patient's history, examined the patient and reviewed the vital signs, lab results, imaging and other diagnostic testing. I have discussed the plan of care with the patient and/or thier family and agree with the findings and recommendations outlined above. Roland Wells MD Regulatory Compliance Specialist of Pediatrics Pediatric Cardiology [facility] Date of Service (when I saw the patient): 09/02/18 Randy Carreno MD - 09/01/2018 8:09 AM CDT Pediatric Surgery Progress Note September 01, 2018 No acute events overnight. Reported increased scrotal pain and headache (since resolved). BP 107/58 Pulse 62 Temp 98.1 ??F (36.7 ??C) (Oral) Resp 18 Ht 1.62 m (5' 3.78) Wt 64.8 kg(142 lb 13.7 oz) SpO2 98% BMI 24.69 kg/m?? Awaken from sleep, in NAD Breathing comfortably on RA Unchanged neuro exam Abdomen soft, ND, TTP throughout without rebound tenderness or voluntary guarding Unchanged purple ecchymosis at base of penis and midline posterior scrotum. I/O last 3 completed shifts: In: 1330 [P.O.:1330] Out: 2100 [Urine:2100] Hgb 14.1 from 13.9 18 year old male with right psoas muscle hematoma - Continue to monitor. No new recommendations per surgery. - Recommend PT consultation if not completed Cristina Anderson MD PGY-2, General Surgery [phone] Hemoglobin stable. Surgery will sign off. Please call with additional questions or concerns. Clifford Vo, PGY6 ---- Attending Attestation: September 01, 2018 Jude Bills was seen and examined with team. I agree with note and plan as discussed. Studies reviewed. Impression/Plan: Doing OK. Making steady progress. Family updated and comfortable with plan as discussed with team. No surgical intervention at this time. Will allow primary team to closely monitor and notify us as needed. If symptoms worsen may warrant further imaging and consideration of IR drainage. 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 This is likely due to chronic warfarintherapy, although the hematoma has evolved since stopping warfarin (08/25). He does have imaging and exam findings concerning for ongoing bleeding including worsening pain, scrotal bruising and CT findings of new retroperitoneal blood as well as interval extension of the hematoma. He has no infectious symptoms concerning for secondary abscess. At this point, no intervention is warranted as he is otherwise hemodynamically stable. He requires inpatient admission for pain control, and monitoring for signs of rapid bleeding. ?? PLAN: CV -Continue home Digoxin 250 mcg -Continue home lasix 10 mg -Continue home metoprolol 25 mg -Continue home Sildenafil 20 mg -Continue home Aldactone 25 mg -HOLD home warfarin (stopped 08/25) ?? PULM -Continue home singulair ?? HEME - Hgb uptrended today- recheck if clinically indicated - Surgery consulted- no plan for intervention at this time - appreciate further recommendations ?? NEURO #Leg, back and scrotal pain #Altered mental status, headache, unsteadiness- likely reaction to oxycodone as head CT was negative. Rotated to morphine and will hold off on further oxycodone administration -Tylenol 650 mg Q6H -Morphine 7.5 mg PO q4H+ q4HPRN -Diazepam 1 mg PO q6 PRN -Gabapentin 300 mg BID- HOLD -PACCT consulted, appreciate further recommendations -PT consulted ?? FEN/GI -Continue home omeprazole -Continue home Miralax -Regular diet ?? Access: PIV -saline locked Dispo: Pending adequate pain control likely 1-3 days Patient was discussed with attending physician, Dr. Priscilla Carrillo MD PGY-3 Pager: [phone] Interval History Increased pain throughout the day yesterday despite scheduling oxycodone and starting gabapentin. Required PRN of morphine as well this morning for breakthrough thigh pain. Later this AM he had a severe headache, unsteadyness of his gait and some confusion concerning for stroke vs epidural bleed vs SAH. A head CT was obtained and was normal. Per PACCT his pain regimen was switched from oxycodone to morphine to try and prevent any opioid related side effects. He additionally has complaints of nausea and received a dose of zofran this morning. He continues to have adequate PO intake with good urine output. He has not had any stool since admission. Physical Exam Temp: 98.1 ??F (36.7 ??C) Temp src: Oral BP: 107/58 Pulse: 62 Heart Rate: 60 Resp: 18 SpO2: 98 % O2 Device: None (Room air) Vitals: 08/30/18 1800 08/31/18 0410 09/01/18 0600 Weight: 62.7 kg (138 lb 3.7 oz) 64 kg (141 lb 1.5 oz) 64.8 kg (142 lb 13.7 oz) Vital Signs with Ranges Temp: [97.5 ??F (36.4 ??C)-98.3 ??F (36.8 ??C)] 98.1 ??F (36.7 ??C) Pulse: [61-68] 62 Heart Rate: [51-61] 60 Resp: [16-22] 18 BP: (102-123)/(42-86) 107/58 SpO2: [96 %-98 %] 98 % I/O last 3 completed shifts: In: 1330 [P.O.:1330] Out: 2100 [Urine:2100] GENERAL: Active, alert, in no acute distress. SKIN: Clear. No significant rash, abnormal pigmentation or lesions HEENT: Normocephalic. EOMI. Normal conjunctiva, Normal external ears, No oral lesions. Moist mucous membranes. NECK: Supple, no masses. No thyromegaly. LYMPH NODES: No adenopathy LUNGS: Clear. No rales, rhonchi, wheezing or retractions HEART: Regular rhythm. Normal S1/S2. Grade 2/6 systolic ejection murmur best appreciated at LUSB. Normal pulses. ABDOMEN: Soft, diffusely tender to light palpation. No masses appreciated. Well healed midline surgical scar. NEUROLOGIC: Speech fluent, alert and oriented fully. Right sided leg weakness but strength and sensation otherwise equal and symmetric. BACK: Spine is straight, no scoliosis. No CVA tenderness EXTREMITIES: Full range of motion, no deformities Medications ??? sodium chloride Stopped (08/31/18 1245) ??? acetaminophen 500 mg Oral Q4H ??? digoxin 250 mcg Oral Daily ??? furosemide 10 mg Oral Daily ??? gabapentin 300 mg Oral BID Followed by ??? [START ON 09/02/2018] gabapentin 300 mg Oral TID ??? metoprolol succinate ER 25 mg Oral Daily ??? montelukast 10 mg Oral At Bedtime ??? omeprazole 20 mg Oral QAM AC ??? oxyCODONE 10 mg Oral Q4H ??? polyethylene glycol 17 g Oral Daily ??? sildenafil 20 mg Oral TID ??? sodium chloride (PF) 3 mL Intracatheter Q8H ??? spironolactone 25 mg Oral Daily Data Results for orders placed or performed during the hospital encounter of 08/30/18 (from the past 24 hour(s)) Hemoglobin Result Value Ref Range Hemoglobin 14.1 13.3 - 17.7 g/dL Results for orders placed or performed during the hospital encounter of 08/30/18 CT Abdomen Pelvis w Contrast Result Value Ref Range Radiologist flags Hematomas (Urgent) Narrative EXAMINATION: CT ABDOMEN PELVIS W CONTRAST, 08/30/2018 2:22 PM TECHNIQUE: CT images from the lung bases through the symphysis pubis were obtained with contrast. CONTRAST DOSE: 100 ml Isovue 300 COMPARISON: CT 01/04/2016, radiograph 04/24/2018 HISTORY: CT scans 08/21, 08/25 @ OSH expanding hematoma w abdominal pain, history of being on warfarin FINDINGS: Partially seen postsurgical changes of cardiac surgery. Minimal amount of right middle lobe scarring or atelectasis. The liver is diffusely decreased in attenuation. There are several small enhancing lesions seen scattered throughout the liver. For example, in the periphery of the left hepatic lobe on series 2, image 27 there is a 6 mm lesion, and there are at least 3 lesions in the periphery of the right hepatic lobe, largest measuring 7 mm on image 24. Findings suggesting polysplenia, with at least 3 separate appearing spleen in the left upper quadrant. The pancreas is normal in appearance. Both adrenal glands and kidneys are normal. There is malrotation. The colon, including the cecum, is located in the left abdomen, with small bowel loops in the right abdomen. There are no abnormally dilated or thickened loops of small bowel or colon. There is asymmetric enlargement of the right iliac is muscle, with an ill-defined intramuscular lesion demonstrating some increased attenuation measuring approximately 3 x 2.5 cm on series 2, image 64. There is a second smaller area of hemorrhage in the right iliac is muscle on image 72, which may be in contiguity with the more superiorly located hemorrhage. On coronal imaging, this entire area measures approximately 5 cm. Additionally, there is fluid in the right lower quadrant, which appears retroperitoneal, and demonstrates mildly elevated Hounsfield units of 29. This can be best seen on coronal series 4, image 14. There are no concerning bone findings. The L5 vertebral body is narrower than adjacent lumbar vertebral bodies, however no acute fracture is suspected. Impression IMPRESSION: 1. 5 cm right iliacus intramuscular hematoma. 2. Small amount of retroperitoneal blood in the right lower quadrant. 3. Decreased hepatic attenuation, most commonly seen in the setting of hepatic steatosis. Several enhancing lesions scattered throughout the liver favor small venous malformations (liver hemangiomas). Comparison with prior studies to confirm stability would be useful. 4. Polysplenia. [Urgent Result: Hematomas] Finding was identified on 08/30/2018 2:[address] Lancaster was contacted by Dr. Ontiveros at 08/30/2018 2:31 PM and verbalized understanding of the urgent finding. I have personally reviewed the examination and initial interpretation and I agree with the findings. ELINA CASTELLANOS MD Head CT w/o contrast Narrative Head CT without contrast09/01/2018 11:58 AM History: Ped, headache, neuro deficit or signs of incr ICP. Comparison: none Technique: Axial images through the brain obtained without intravenous contrast, reviewed in bone, brain, and subdural windows. Findings: There is no evidence of intracranial hemorrhage. There is no mass-effect or midline shift. The ventricles do not appear enlarged out of proportion to the cerebral sulci. Hypoplastic right frontal sinus. Rest of the visualized portions of the paranasal sinuses and mastoid air cells are unremarkable on bone windows. Impression Impression: No acute intracranial pathology. CBC with platelets differential Result Value Ref Range WBC 5.9 4.0 - 11.0 10e9/L RBC Count 5.04 4.4 - 5.9 10e12/L Hemoglobin 14.5 13.3 - 17.7 g/dL Hematocrit 44.0 40.0 - 53.0 % MCV 87 78 - 100 fl MCH 28.8 26.5 - 33.0 pg MCHC 33.0 31.5 - 36.5 g/dL RDW 13.2 10.0 - 15.0 % Platelet Count 188 150 - 450 10e9/L Diff Method Automated Method % Neutrophils 74.1 % % Lymphocytes 16.8 % % Monocytes 7.4 % % Eosinophils 1.2 % % Basophils 0.3 % % Immature Granulocytes 0.2 % Nucleated RBCs 0 0 /100 Absolute Neutrophil 4.4 1.6 - 8.3 10e9/L Absolute Lymphocytes 1.0 0.8 - 5.3 10e9/L Absolute Monocytes 0.4 0.0 - 1.3 10e9/L Absolute Eosinophils 0.1 0.0 - 0.7 10e9/L Absolute Basophils 0.0 0.0 - 0.2 10e9/L Abs Immature Granulocytes 0.0 0 - 0.4 10e9/L Absolute Nucleated RBC 0.0 Comprehensive metabolic panel Result Value Ref Range Sodium 140 133 - 144 mmol/L Potassium 3.8 3.4 - 5.3 mmol/L Chloride 106 98 - 110 mmol/L Carbon Dioxide 26 20 - 32 mmol/L Anion Gap 8 3 - 14 mmol/L Glucose 88 70 - 99 mg/dL Urea Nitrogen 19 7 - 21 mg/dL Creatinine 0.82 0.50 - 1.00 mg/dL GFR Estimate >90 >60 mL/min/[1.73_m2] GFR Estimate If Black >90 >60 mL/min/[1.73_m2] Calcium 9.0 (L) 9.1 - 10.3 mg/dL Bilirubin Total 1.8 (H) 0.2 - 1.3 mg/dL Albumin 4.1 3.4 - 5.0 g/dL Protein Total 7.9 6.8 - 8.8 g/dL Alkaline Phosphatase 97 65 - 260 U/L ALT 25 0 - 50 U/L AST 22 0 - 35 U/L Lipase Result Value Ref Range Lipase 128 0 - 194 U/L UA with Microscopic reflex to Culture Result Value Ref Range Color Urine Light Yellow Appearance Urine Clear Glucose Urine Negative NEG^Negative mg/dL Bilirubin Urine Negative NEG^Negative Ketones Urine Negative NEG^Negative mg/dL Specific [place] Urine 1.029 1.003 - 1.035 Blood Urine Negative NEG^Negative pH Urine 6.5 5.0 - 7.0 pH Protein Albumin Urine Negative NEG^Negative mg/dL Urobilinogen mg/dL Normal 0.0 - 2.0 mg/dL Nitrite Urine Negative NEG^Negative Leukocyte Esterase Urine Negative NEG^Negative Source Midstream Urine WBC Urine 0 0 - 5 /HPF RBC Urine 1 0 - 2 /HPF Fibrinogen activity Result Value Ref Range Fibrinogen 414 200 - 420 mg/dL Partial thromboplastin time Result Value Ref Range PTT 43 (H) 22 - 37 sec INR Result Value Ref Range INR 1.38 (H) 0.86 - 1.14 Creatinine POCT Result Value Ref Range Creatinine 0.9 0.50 - 1.00 mg/dL GFR Estimate >90 >60 mL/min/[1.73_m2] GFR Estimate If Black >90 >60 mL/min/[1.73_m2] Hemoglobin Result Value Ref Range Hemoglobin 13.9 13.3 - 17.7 g/dL Hemoglobin Result Value Ref Range Hemoglobin 14.1 13.3 - 17.7 g/dL ISTAT INR POCT Result Value Ref Range ISTAT INR 1.5 (H) 0.86 - 1.14 ISTAT gases elec ica gluc eliot POCT Result Value Ref Range Ph Venous 7.38 7.32 - 7.43 pH PCO2 Venous 45 40 - 50 mm Hg PO2 Venous 28 25 - 47 mm Hg Bicarbonate Venous 26 21 - 28 mmol/L O2 Sat Venous 51 % Sodium 142 133 - 144 mmol/L Potassium 3.8 3.4 - 5.3 mmol/L Glucose 92 70 - 99 mg/dL Calcium Ionized 4.9 4.4 - 5.2 mg/dL Hemoglobin 15.0 13.3 - 17.7 g/dL Hematocrit - POCT 44 40.0 - 53.0 %PCV ABO/Rh type and screen Result Value Ref Range ABO AB RH(D) Pos Antibody Screen Neg Test Valid Only At [facility] Specimen Expires 09/02/2018 Associated attestation - Roland Wells MD - 10/16/2018 2:45 AM CDT Physician Attestation: I, Roland Wells, saw this patient with the fellow/resident and agree with the findings and plan ofcare as documented in this note. I have reviewed this patient's history, examined the patient and reviewed the vital signs, lab results, imaging and other diagnostic testing. I have discussed the plan of care with the patient and/or thier family and agree with the findings and recommendations outlined above. Roland Wells MD Regulatory Compliance Specialist of Pediatrics Pediatric Cardiology [facility] Date of Service (when I saw the patient): 09/01/18 Patricia Kruse - 08/31/2018 1:41 PM CDT 08/31/18 1341 Values Beliefs and Spiritual Care C: Community: In support of your spiritual health, is there someone we may contact for you? (identify all that apply) ([facility] 08/31) Visit Information Visit Made By Staff Mixed Signal Design Engineer Type of Visit On-call Visited Patient;Family Interventions Basic Spiritual Interventions Mixed Signal Design Engineer introduction/orientation to Spiritual Health Services;Reflective conversation;Prayer Advanced Assessments/Interventions Presenting Concerns/Issues Spiritual/congregation/emotional support SPIRITUAL HEALTH SERVICES SPIRITUAL ASSESSMENT Progress Note [facility] ([facility] [place]) Peds6 ON-CALL VISIT PRIMARY FOCUS: ??? Support for coping ILLNESS CIRCUMSTANCES: Reviewed documentation. Visit due to pt request for folder hand support on admission. Reflective conversation shared with Jude and his parents (Jaimie and Bear) which integrated elements of illness, family narratives, and amelie. ??? Context of Serious Illness/Symptom(s) - Mom shared - Jude missed the last week of school, had been hoping to feel better over the weekend and now we are here Jude noted his abdominal pain and GI bleed. ??? Resources for Support - Jude's parents are here with him today. Jude also mentioned his [employer] bushing and broach operator that has visited, offered one-to-one support for him and also for the family. DISTRESS: ??? Emotional/Spiritual/Existential Distress - I am looking forward to graduating and getting busy with life Jude stated, noting that it is hard to be here instead. He also asked for prayers for Elina, a friend with some similar health challenges who 3 weeks ago. ??? Cheondoism Distress - ??? Social/Cultural/Economic Distress - being away from school so close to high school graduation SPIRITUAL/JAIN COPING: ??? Church/Amelie - [employer] ??? Spiritual Practice(s) - Jude welcomed prayers and noted his appreciation of his bushing and broach operator's support ??? Emotional/Relational/Existential Connections - Not Discussed GOALS OF CARE: ??? Goals of Care - Jude noted that when the bleeding stops he can go home ??? Meaning/Sense-Making - Jude is working to make sense of his friend's and his own mortality. He may be open to, and benefit from further processing and exploration of his feelings around this event. PLAN: I have informed the unit folder hand of care provided. The family is aware of how to reach [facility] through their nurse, and may be open to further support. 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 This is likely due to chronic warfarin therapy, although the hematoma has evolved since stopping warfarin (08/25). He does have imaging andexam findings concerning for ongoing bleeding including worsening pain, scrotal bruising and CT findings of new retro peritoneal blood as well as interval growth of the hematoma. He has no infectious symptoms concerning for secondary abscess. At this point, no intervention is warranted as he is otherwise hemodynamically stable. He requires inpatient admission for pain control, and monitoring for signs of rapid bleeding. ?? PLAN: CV -Continue home Digoxin 250 mcg -Continue home lasix 10 mg -Continue home metoprolol 25 mg -Continue home Sildenafil 20 mg -Continue home Aldactone 25 mg -HOLD home warfarin (stopped 08/25) ?? PULM -Continue home singulair ?? HEME - AM Hgb - Surgery consulted- no plan for intervention at this time - appreciate further recommendations ?? NEURO -Tylenol 650 mg Q6H -Oxycodone 10mg q4h PRN -If pain is inadequately controlled, will consider adding gabapentin for nerve pain ?? FEN/GI -Continue home omeprazole -Continue home Miralax -Regular diet ?? Access: PIV -saline locked Dispo: Pending adequate pain control likely 1-3 days Patient was discussed with attending physician, Dr. Zaldivar. Jennifer Saba MD Pediatrics, PGY-1 Pager: [phone] Physician Attestation I, Abi Zaldivar, saw this patient with the resident and agree with the resident/fellow's findings and plan of care as documented in the note. I personally reviewed vital signs, medications, labs and imaging. Abi Zaldivar MD Date of Service (when I saw the patient): 08/31/18 Interval History Overnight, pain has been fairly well controlled on tylenol and PRN morphine x2 although he continuesto have 10/10 pain intermittently. Afebrile. Stable vital signs, no concerns for rapid blood loss. Parents at bedside. Physical Exam Temp: 98 ??F (36.7 ??C) Temp src: Oral BP: 123/76 Pulse: 53 Heart Rate: 56 Resp: 20 SpO2: 98 % O2 Device: None (Room air) Vitals: 08/30/18 1245 08/30/18 1800 08/31/18 0410 Weight: 66.2 kg (145 lb 15.1 oz) 62.7 kg (138 lb 3.7 oz) 64 kg (141 lb 1.5 oz) Vital Signs with Ranges Temp: [97.8 ??F (36.6 ??C)-98.4 ??F (36.9 ??C)] 98 ??F (36.7 ??C) Pulse: [53-58] 53 Heart Rate: [52-68] 56 Resp: [11-20] 20 BP: (114-125)/(52-82) 123/76 SpO2: [95 %-98 %] 98 % I/O last 3 completed shifts: In: 1185.25 [P.O.:840; I.V.:345.25] Out: 250 [Urine:250] GENERAL: Active, alert, in no acute distress. SKIN: Clear. No significant rash, abnormal pigmentation or lesions HEENT: Normocephalic. EOMI. Normal conjunctiva, Normal external ears, No oral lesions. Moist mucous membranes. NECK: Supple, no masses. No thyromegaly. LYMPH NODES: No adenopathy LUNGS: Clear. No rales, rhonchi, wheezing or retractions HEART: Regular rhythm. Normal S1/S2. Grade 2/6 systolic ejection murmur best appreciated at LUSB. Normal pulses. ABDOMEN: Soft, diffusely tender to light palpation. No masses appreciated. Well healed midline surgical scar. NEUROLOGIC: No focal findings. BACK: Spine is straight, no scoliosis. No CVA tenderness EXTREMITIES: Full range of motion, no deformities Medications ??? sodium chloride 10 mL/hr at 08/30/18 2205 ??? acetaminophen 650 mg Oral Q6H ??? digoxin 250 mcg Oral Daily ??? furosemide 10 mg Oral Daily ??? metoprolol succinate ER 25 mg Oral Daily ??? montelukast 10 mg Oral At Bedtime ??? omeprazole 20 mg Oral QAM AC ??? sildenafil 20 mg Oral TID ??? sodium chloride (PF) 3 mL Intracatheter Q8H ??? spironolactone 25 mg Oral Daily Data 05/14/2018 13:58 08/30/2018 13:33 08/30/2018 13:33 08/31/2018 07:21 Hemoglobin 17.2 15.0 14.5 13.9 08/30/2018 13:33 INR 1.38 (H) ISTAT INR 1.5 (H) PTT 43 (H) Fibrinogen 414 08/30/2018 13:33 Sodium 140 Potassium 3.8 Chloride 106 Carbon Dioxide 26 Urea Nitrogen 19 Creatinine 0.82 Calcium 9.0 (L) Anion Gap 8 Albumin 4.1 Protein Total 7.9 Bilirubin Total 1.8 (H) Alkaline Phosphatase 97 ALT 25 AST [address] abdomen/pelvis (08/30): IMPRESSION: 1. 5 cm right iliacus intramuscular hematoma. 2. Small amount of retroperitoneal blood in the right lower quadrant. 3. Decreased hepatic attenuation, most commonly seen in the setting of hepatic steatosis. Several enhancing lesions scattered throughout the liver favor small venous malformations (liver hemangiomas). Comparison with prior studies to confirm stability would be useful. 4. Polysplenia. Randy Carreno MD - 08/31/2018 7:30 AM CDT Pediatric Surgery Progress Note August 31, 2018 No acute events overnight. Continues to have right hip/pelvic pain. New small area of ecchymosis at base of scrotum. No difficulty urinating or tenderness in scrotum. BP 120/86 Pulse 68 Temp 97.5 ??F (36.4 ??C) (Oral) Resp 22 Ht 1.62 m (5' 3.78) Wt 64 kg (141 lb 1.5 oz) SpO2 98% BMI 24.39 kg/m?? Awake, in NAD Breathing comfortably on RA 5/5 strength with flexion/extension at hips, knees, ankles bilaterally; sensory intact in BLE Abdomen soft, ND, TTP throughout without rebound tenderness or voluntary guarding Purple ecchymosis at base of penis and midline posterior scrotum. I/O last 3 completed shifts: In: 1555.25 [P.O.:1210; I.V.:345.25] Out: 1100 [Urine:1100] No new labs/imaging. 18 year old male with right psoas muscle hematoma - Recommend PT consultation - May consider MRI sometime this week to reevaluate hematoma Cristina Anderson MD PGY-2, General Surgery [phone] ---- Attending Attestation: August 31, 2018 Jude Bills was seen and examined with team. I agree with note and plan as discussed. Studies reviewed. Impression/Plan: Doing OK. Making steady progress. Family updated and comfortable with plan as discussed with team. No surgical intervention at this time. Will closely monitor. 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 This is likely due to chronic warfarin therapy, although the hematoma has evolved since stopping warfarin 6 days ago. He has no infectious symptoms concerning for secondary abscess. He does have imaging and exam findings concerning for ongoing bleeding including worsening pain, scrotal bruising and CT findings of new retro peritoneal blood as well as interval growth of the hematoma. At this point, no intervention is warranted as he is otherwise hemodynamically stable. He has no signs of rapid blood loss. He requires inpatient admission for pain control, and monitoring for signs of rapid bleeding. PLAN: CV -Continue home Digoxin 250 mcg -Continue home lasix 10 mg -Continue home metoprolol 25 mg -Continue home Sildenafil 20 mg -Continue home Aldactone 25 mg -HOLD home warfarin PULM -Continue home singulair HEME - AM Hgb - Surgery consulted- no plan for intervention at this time - appreciate further recommendations NEURO -Tylenol 650 mg Q6H -Morphine 2-4 mg IV Q4H PRN FEN/GI -Continue home omeprazole -Continue home Miralax -Regular diet -NS IV 75 mL/hr Access: PIV Dispo: Pending adequate pain control likely 1-3 days Kevin Carrillo MD PGY-3 Pager: [phone] Physician Attestation I, Abi Zaldivar, saw this patient with the resident and agree with the resident/fellow's findings and plan of care as documented in the note. I personally reviewed vital signs, medications, labs and imaging. Abi Zaldivar MD Date of Service (when I saw the patient): 08/30/18 Primary Care Physician Stephen Sauceda Chief Complaint Pain History is obtained from the patient and the patient's parent(s) History of Present Illness Jude Bills is a 18 year old male with a history of double outlet right ventricle, left ventricular hypoplasia, d-transposition of the great vessels and pulmonary stenosis. 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 He had catheter closure of his Fontan fenestration at the [facility] in January 2007. 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 He presents today with worsening abdominal pain. His pain first started asside pain on 08/20. It was thought at that time to be musculoskeletal in nature. [facility] he underwent a CT scan that showed a hematoma of his R psoas muscle. On 08/25 he returned to the hospital for increasing pain and a repeat CT at that time showed interval expansion of the hematoma within the psoas muscle. Dr. Juarez was consulted at at time and she recommended stopping his Warfarin to prevent further bleeding. At that time, his INRwas 2.4 and his Hgb was 16. Since 08/25 his pain has continued to worsen and has spread more to his abdomen and pelvis. This morning, he felt that his stomach was more full and diffusely painful and he was unable to walk due to the pain. He also noticed that he was having some pain with urination. He notes that the pain is worse with deep breathing and coughing. Even at rest he has some degree ofpain. He has been taking 1 dose of narco daily as well as tylenol but this has only been minimally affective. Since today he has not been able to eat or drink. He has not had any vomiting, or hematemesis. He last stooled yesterday and denies any blood in his stool. He has no blood in his urine. While in the ED today he has noticed some bruising and swelling of his scrotum which is new. He has no other rashes or discoloration. He denies any recent trauma or injuries. He has not participated in any contact sports recently. He denies any chest pain, recent fevers, or cold symptoms. He has had bleedingproblems in the past with warfarin but that has mostly just been large hematomas to his extremities associated with mild traumas. This has not occurred in quite a few years. He has been otherwise well recently. He is followed by Dr. Juarez of cardiology. ED Course: He was complaining initially of 10/10 pain and inability to walk. His pain improved after4 mg of morphine. Initial labs including hemoglobin and INR were relatively unremarkable other than a 2g drop in his hemoglobin since last seen here in April. He underwent a repeat CT scan which wassignificant for a 5 cm right illiacus intramuscular hematoma with a small amount of retroperitoneal blood in the right lower quadrant which was not previously appreciated. Past Medical History Past medical history reviewed with no previously diagnosed medical problems. Past Surgical History I have reviewed this [...] Prescriptions Last Dose Informant Patient Reported? Taking? digoxin (LANOXIN) 250 MCG tablet No No Sig: Take 1 tablet (250 mcg) by mouth daily furosemide (LASIX) 20 MG tablet No No Sig: Take 0.5 tablets (10 mg) by mouth daily metoprolol succinate ER (TOPROL-XL) 25 MG 24 hr tablet No No Sig: TAKE ONE TABLET BY MOUTH ONE TIME DAILY montelukast (SINGULAIR) 10 MG tablet Yes Yes Sig: Take 10 mg by mouth At Bedtime omeprazole (PRILOSEC) 20 MG CR capsule No No Sig: Take 1 capsule twice daily for one week then once daily polyethylene glycol (MIRALAX/GLYCOLAX) packet No No Sig: Take 17 g by mouth daily Goal is to achieve one soft bowel movement per day. Can increase or decrease dose as needed. sildenafil (REVATIO) 20 MG tablet No No Sig: Take 1 tablet (20 mg) by mouth three times daily for pulmonary hypertension. Never use with nitroglycerin, terazosin or doxazosin. sildenafil (REVATIO) 20 MG tablet No No Sig: TAKE ONE TABLET BY MOUTH THREE TIMES DAILY. NEVER USE WITH NITROGLYCERIN, TERAZOSIN OR DOXAZOSIN. FOLLOW UP W/JAVIER NEEDED spironolactone (ALDACTONE) 25 MG tablet No No Sig: Take 1 tablet (25 mg) by mouth daily warfarin (COUMADIN) 5 MG tablet Yes No Sig: Take 1 tablet (5mg) every day except Saturday and Saturday. Take 1/2 tablet (2.5 mg) every Saturday and Saturday warfarin (COUMADIN) 5 MG tablet No No Sig: Take 1 tablet (5 mg) by mouth on Sat, Sat, Sat, Sat, Sun. Take 1/2 tablet (2.5 mg) on , . Facility-Administered Medications: None Allergies Allergies Allergen Reactions ??? Motrin [Ibuprofen] ??? Seasonal Allergies Itchy eyes, runny nose, hives when around tall grasses Social History He lives at home with his parents and older sibling. He is a senior in [employer]. Family History Family history reviewed with patient and is noncontributory. Review of Systems The 10 point Review of Systems is negative other than noted in the HPI or here. Physical Exam Temp: 98.2 ??F (36.8 ??C) Temp src: Tympanic BP: 118/71 Pulse: 58 Heart Rate: 58 Resp: 20 SpO2: 95 %O2 Device: None (Room air) Vital Signs with Ranges Temp: [98.2 ??F (36.8 ??C)-98.4 ??F (36.9 ??C)] 98.2 ??F (36.8 ??C) Pulse: [58] 58 Heart Rate: [58-68] 58 Resp: [16-20] 20 BP: (114-125)/(60-71) 118/71 SpO2: [95 %-98 %] 95 % 145 lbs 15.11 oz GENERAL: Active, alert, in no acute distress. SKIN: Clear. No significant rash, abnormal pigmentation or lesions HEAD: Normocephalic EYES: Pupils equal, round, reactive, Extraocular muscles intact. Normal conjunctivae. EARS: Normal canals. Tympanic membranes are normal; mosley and translucent. NOSE: Normal without discharge. MOUTH/THROAT: Clear. No oral lesions. Teeth without obvious abnormalities. NECK: Supple, no masses. No thyromegaly. LYMPH NODES: No adenopathy LUNGS: Clear. No rales, rhonchi, wheezing or retractions HEART: Regular rhythm. Normal S1/S2. Grade 2/6 systolic ejection murmur best appreciated at LUSB. Normal pulses. ABDOMEN: Soft, diffusely tender to light palpation. No masses appreciated. Well healed midline surgical scar. NEUROLOGIC: No focal findings. BACK: Spine is straight, no scoliosis. No CVA tenderness EXTREMITIES: Full range of motion, no deformities -M: Normal male external genitalia. Chele stage 2, both testes descended. Area of ecchymoses around midline of right side of scrotal sac. Data Results for orders placed or performed during the hospital encounter of 08/30/18 (from the past 24 hour(s)) ISTAT INR POCT Result Value Ref Range ISTAT INR 1.5 (H) 0.86 - 1.14 CBC with platelets differential Result Value Ref Range WBC 5.9 4.0 - 11.0 10e9/L RBC Count 5.04 4.4 - 5.9 10e12/L Hemoglobin 14.5 13.3 - 17.7 g/dL Hematocrit 44.0 40.0 - 53.0 % MCV 87 78 - 100 fl MCH 28.8 26.5 - 33.0 pg MCHC 33.0 31.5 - 36.5 g/dL RDW 13.2 10.0 - 15.0 % Platelet Count 188 150 - 450 10e9/L Diff Method Automated Method % Neutrophils 74.1 % % Lymphocytes 16.8 % % Monocytes 7.4 % % Eosinophils 1.2 % % Basophils 0.3 % % Immature Granulocytes 0.2 % Nucleated RBCs 0 0 /100 Absolute Neutrophil 4.4 1.6 - 8.3 10e9/L Absolute Lymphocytes 1.0 0.8 - 5.3 10e9/L Absolute Monocytes 0.4 0.0 - 1.3 10e9/L Absolute Eosinophils 0.1 0.0 - 0.7 10e9/L Absolute Basophils 0.0 0.0 - 0.2 10e9/L Abs Immature Granulocytes 0.0 0 - 0.4 10e9/L Absolute Nucleated RBC 0.0 Comprehensive metabolic panel Result Value Ref Range Sodium 140 133 - 144 mmol/L Potassium 3.8 3.4 - 5.3 mmol/L Chloride 106 98 - 110 mmol/L Carbon Dioxide 26 20 - 32 mmol/L Anion Gap 8 3 - 14 mmol/L Glucose 88 70 - 99 mg/dL Urea Nitrogen 19 7 - 21 mg/dL Creatinine 0.82 0.50 - 1.00 mg/dL GFR Estimate >90 >60 mL/min/[1.73_m2] GFR Estimate If Black >90 >60 mL/min/[1.73_m2] Calcium 9.0 (L) 9.1 - 10.3 mg/dL Bilirubin Total 1.8 (H) 0.2 - 1.3 mg/dL Albumin 4.1 3.4 - 5.0 g/dL Protein Total 7.9 6.8 - 8.8 g/dL Alkaline Phosphatase 97 65 - 260 U/L ALT 25 0 - 50 U/L AST 22 0 - 35 U/L Lipase Result Value Ref Range Lipase 128 0 - 194 U/L Fibrinogen activity Result Value Ref Range Fibrinogen 414 200 - 420 mg/dL ABO/Rh type and screen Result Value Ref Range ABO AB RH(D) Pos Antibody Screen Neg Test Valid Only At [facility] Specimen Expires 09/02/2018 Partial thromboplastin time Result Value Ref Range PTT 43 (H) 22 - 37 sec INR Result Value Ref Range INR 1.38 (H) 0.86 - 1.14 Creatinine POCT Result Value Ref Range Creatinine 0.9 0.50 - 1.00 mg/dL GFR Estimate >90 >60 mL/min/[1.73_m2] GFR Estimate If Black >90 >60 mL/min/[1.73_m2] ISTAT gases elec ica gluc eliot POCT Result Value Ref Range Ph Venous 7.38 7.32 - 7.43 pH PCO2 Venous 45 40 - 50 mm Hg PO2 Venous 28 25 - 47 mm Hg Bicarbonate Venous 26 21 - 28 mmol/L O2 Sat Venous 51 % Sodium 142 133 - 144 mmol/L Potassium 3.8 3.4 - 5.3 mmol/L Glucose 92 70 - 99 mg/dL Calcium Ionized 4.9 4.4 - 5.2 mg/dL Hemoglobin 15.0 13.3 - 17.7 g/dL Hematocrit - POCT 44 40.0 - 53.0 %PCV CT Abdomen Pelvis w Contrast Result Value Ref Range Radiologist flags Hematomas (Urgent) Narrative EXAMINATION: CT ABDOMEN PELVIS W CONTRAST, 08/30/2018 2:22 PM TECHNIQUE: CT images from the lung bases through the symphysis pubis were obtained with contrast. CONTRAST DOSE: 100 ml Isovue 300 COMPARISON: CT 01/04/2016, radiograph 04/24/2018 HISTORY: CT scans 08/21, 08/25 @ [facility]SH expanding hematoma w abdominal pain, history of being on warfarin FINDINGS: Partially seen postsurgical changes of cardiac surgery. Minimal amount of right middle lobe scarring or atelectasis. The liver is diffusely decreased in attenuation. There are several small enhancing lesions seen scattered throughout the liver. For example, in the periphery of the left hepatic lobe on series 2, image 27 there is a 6 mm lesion, and there are at least 3 lesions in the periphery of the right hepatic lobe, largest measuring 7 mm on image 24. Findings suggesting polysplenia, with at least 3 separate appearing spleen in the left upper quadrant. The pancreas is normal in appearance. Both adrenal glands and kidneys are normal. There is malrotation. The colon, including the cecum, is located in the left abdomen, with small bowel loops in the right abdomen. There are no abnormally dilated or thickened loops of small bowel or colon. There is asymmetric enlargement of the right iliac is muscle, with an ill-defined intramuscular lesion demonstrating some increased attenuation measuring approximately 3 x 2.5 cm on series 2, image 64. There is a second smaller area of hemorrhage in the right iliac is muscle on image 72, which may be in contiguity with the more superiorly located hemorrhage. On coronal imaging, this entire area measures approximately 5 cm. Additionally, there is fluid in the right lower quadrant, which appears retroperitoneal, and demonstrates mildly elevated Hounsfield units of 29. This can be best seen on coronal series 4, image 14. There are no concerning bone findings. The L5 vertebral body is narrower than adjacent lumbar vertebral bodies, however no acute fracture is suspected. Impression IMPRESSION: 1. 5 cm right iliacus intramuscular hematoma. 2. Small amount of retroperitoneal blood in the right lower quadrant. 3. Decreased hepatic attenuation, most commonly seen in the setting of hepatic steatosis. Several enhancing lesions scattered throughout the liver favor small venous malformations (liver hemangiomas). Comparison with prior studies to confirm stability would be useful. 4. Polysplenia. [Urgent Result: Hematomas] Finding was identified on 08/30/2018 2:[address] Lancaster was contacted by Dr. Ontiveros at 08/30/2018 2:31 PM and verbalized understanding of the urgent finding. I have personally reviewed the examination and initial interpretation and I agree with the findings. ELINA CASTELLANOS MD UA with Microscopic reflex to Culture Result Value Ref Range Color Urine Light Yellow Appearance Urine Clear Glucose Urine Negative NEG^Negative mg/dL Bilirubin Urine Negative NEG^Negative Ketones Urine Negative NEG^Negative mg/dL Specific [place] Urine 1.029 1.003 - 1.035 Blood Urine Negative NEG^Negative pH Urine 6.5 5.0 - 7.0 pH Protein Albumin Urine Negative NEG^Negative mg/dL Urobilinogen mg/dL Normal 0.0 - 2.0 mg/dL Nitrite Urine Negative NEG^Negative Leukocyte Esterase Urine Negative NEG^Negative Source Midstream Urine WBC Urine 0 0 - 5 /HPF RBC Urine 1 0 - 2 /HPF documented in this encounter Consult Notes Yasmin Garcia APRN MARRIAGE AND FAMILY COUNSELOR - 09/01/2018 10:58 AM CDTAssociated Order(s): PEDS PACCT (PAIN AND ADVANCED/COMPLEX CARE TEAM) IP CONSULT Images from the original note were not included. Pediatric Pain & Advanced/Complex Care Team (PACCT) Initial Consultation, Pain Management Jude Bills Age: [age] year old Date of : 2000 Date: 09/01/2018 Primary care provider: Stephen Sauceda Reason for consult: On the request of Dr. Carrillo from the peds cardiology service, we were consulted for assessment and recommendations regarding pain management. The following is a summary of my conversation with Jude Bills and his parents, with recommendations based on this conversation and information obtained from a review of relevant medical records. ASSESSMENT, DIAGNOSIS & RECOMMENDATIONS Assessment Jude Bills is a 18 year old male with a history of complex congenital heart disease and psoas hematoma thought to be related to anticoagulant therapy. Sudden increase in headache today accompanied by confusion in the context of recent warfarin therapy concerning for bleed vs. medication-related as adverse effects vs. dehydration. Urinary retention may be related to medications vs. 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 (2) psoas hematoma, evolving after stopping warfarin therapy; involves abdomen, testicles, penis, upper leg (3) pain related to above (4) headache, frontal with associated photophobia; likely medication-related Recommendations - hold oxycodone for now pending head CT - upon return from CT, would start po morphine in place of oxycodone (see dosing below) due to suspicion for opioid-related adverse effects - recommend addition of muscle relaxant for pain related to hematomas and ?secondary muscle spasm (see below) Pain: NON-PHARMACOLOGICAL INTERVENTIONS - Age-appropriate distraction - Parental involvement - Allow choices where permitted, positioning, rapport builiding - Cognitive: auditory stimuli (e.g. tablets), control, controlled breathing, distraction, imagery, hypnosis (by trained provider only), modeling, relaxation, prepare for coping techniques and/or teaching procedures, relaxation - Biophysical: environmental modification, holding, touching, massage, heat or cold application - Distraction: music, TV, video games, guided imagery, deep breathing, conversation Other considerations: Older patients may or may not want caregiver presence. Establish rapport to increase cooperation. Allow to watch procedure, if requested SIMPLE ANALGESIA - acetaminophen 500 mg scheduled Q4h - NSAIDs contraindicated OPIOID THERAPY - discontinue oxycodone and start morphine 7.5 mg (1/2 tab) po q4h scheduled (time with acetaminophen to minimize disturbing him). Have an additional 7.5 mg available Q4h PRN for breakthrough pain. This is comparatively a lower dose than his oxycodone, however the goal is to anticipatorily manage hispain and to minimize large flares while limiting adverse effects - if frequent PRN use AND patient returns to his prior mental status, may increase scheduled morphine to 15 mg po Q8h ADJUVANT ANALGESIA - hold gabapentin for now. Discontinue tonight prior to 2000 dose if he continues to have altered mental status - if urinary catheterization is needed, please use topical lidocaine gel for comfort with placement - consider addition of a muscle relaxant: diazepam 1-2 mg po Q6h PRN (low dose due to AMS, may be increased to 2-4 mg if this improves) vs methocarbamol 1,000 mg po 4x daily PRN (preference per primary team) SIDE-EFFECT MANAGEMENT Constipation: continue scheduled miralax. Consider addition of senna if no BM in 24 hours Pruritus: not currently problematic. Note that opioid-induced pruritus is NOT a histamine-mediated reaction, therefore antihistamines (such as diphenhydramine/Benadryl??) are generally ineffective in resolving this symptom. Urinary retention: opioid rotation as above. Consider methylnaltrexone 8 mg subcutaneous x1 for urinary retention Nausea/Vomiting: not currently problematic Nausea: consider prochlorperazine as an alternative to ondansetron due to headache as known adverse effect to ondansetron The above recommendations are based on the WHO Guidelines for the Pharmacological Treatment of Persisting Pain in Children with Medical Illnesses: (1) using a two-step strategy, (2) dosing at regular intervals, (3) using the appropriate route of administration, and (4) adapting treatment to the individ ual child (available at: http://apps.who.int/iris/bitstream/78113/51165/1/9789241548120_Guidelines.pdf). Thank you for the opportunity to participate in the care of this patient and family. Please contact the Pain and Advanced/Complex Care Team (PACCT) with any emergent needs via text page to the PACCT general pager ([phone], answered 8-4:30 Saturday to Saturday). After hours and on weekends/holidays, please refer to the [facility] or [place] on-call schedule. The above assessment and plan was discussed with the care team. A total of 90 minutes were spent [id number] or in the coordination care of Jude Bills. Greater than 50% of my time on the unit was spent counseling the patient and/or coordinating care. Yasmin Garcia NP Pain and Advanced/Complex Care Team (PACCT) [facility] Pager: SUBJECTIVE: History of the Present Illness Jude Bills is a 18 year old male with a history of complex congenital heart disease (DORV, left ventricular hypoplasia, D-TGA, pulmonary stenosis; s/p serial corrective surgeries in [employer] maintenance [employer],most recently post Fontan closure 01/2007), heterotaxy, intestinal malrotation s/p repair, depressionand ADHD with a right-sided psoas hematoma thought to be due to chronic warfarin therapy. This morning, he developed severe frontal headache, coupled with dizziness and difficulty ambulatingas well as confusion. A STAT head CT was ordered. Additionally, he reports the urge to void but is unable to initiate a stream. Bladder scan revealed 300 mls. SUBJECTIVE: Past/Family/Social History Past Medical History Past Medical History: Diagnosis Date ??? 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 Congenital anomalies of spleen Polysplenia ??? Esophageal reflux ??? 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 [...] Surgeon: Akash Graves MD; Location: [facility] Family History Family History Adopted: Yes Problem Relation Age of Onset ??? Unknown/Adopted Other child adopted from [place] at 10mo of age ??? Unknown/Adopted Other ??? Unknown/Adopted Other Social History Adopted from [place] as an . Lives with parents and older sibling OBJECTIVE ASSESSMENTS: Last 24 hours VITALS: Reviewed; all vital signs were within normal limits for age INS/OUTS: Taking PO? yes Bowel movements? none since admission PAIN (NR scale): 9/10, localized to head Current Medications I have reviewed this patient's medication profile and medications during this hospitalization. Medications related to this consult are as follows (with PRN use indicated from 08:00 yesterday morning to08:00 this morning): Medications related to Pain Management (From now, onward) Start Dose/Rate Route Frequency Ordered Stop 09/02/181999 gabapentin (NEURONTIN) capsule 300 mg 300 mg Oral 3 TIMES DAILY 09/01/18 1243 09/01/18 124 morphine (MSIR) IR half-tab 7.5 mg 7.5 mg Oral EVERY 4 HOURS 09/01/18 1243 09/01/18 1245 gabapentin (NEURONTIN) capsule 300 mg 300 mg Oral HOLD 09/01/18 1243 09/02/18 1244 09/01/18 124 diazepam (VALIUM) half-tab 1 mg 1 mg Oral EVERY 6 HOURS PRN 09/01/18 1243 09/01/18 1241 morphine (MSIR) IR half-tab 7.5 mg 7.5 mg Oral EVERY 4 HOURS PRN 09/01/18 1243 08/31/18 2330 acetaminophen (TYLENOL) tablet 500 mg 500 mg Oral EVERY 4 HOURS 08/31/18 2140 08/31/18 1315 polyethylene glycol (MIRALAX/GLYCOLAX) Packet 17 g 17 g Oral DAILY 08/31/18 1313 Review of Systems A comprehensive review of systems was performed, and was negative other than what was described above. Physical Examination General: Alert, awake, mild distress, holding head HEENT: NC/AT, No masses, lesions, tenderness or abnormalities, PERRL, EOMI. Sclera non-icteric, non-injected. Conjunctivae pink without discharge. External ears normal. Nares without discharge, MMM. Neck supple, with full ROM. No cervical LAD. Cardiovascular: RRR, Physiologic S1/S2, Respiratory: CTAB, No increased WOB, No inter- or sub-costal retractions. Gastrointestinal: Abdomen soft, non-tender, non-distended. Normoactive BS. No organomegaly or massesfelt. Genitourinary: Deferred exam of hematomas due to urgent CT Extremities: WWP. Capillary refill <2 seconds. No peripheral edema. Skin: No suspicious bruises, lesions or rashes. Psych/Neuro: Oriented to person, place, time and situation though making comments that are out of context. Laboratory/Imaging/Pathology Results for orders placed or performed during the hospital encounter of 08/30/18 (from the past 24 hour(s)) Hemoglobin Result Value Ref Range Hemoglobin 14.1 13.3 - 17.7 g/dL Imaging reviewed, head CT pending. CT of abdomen/pelvis from earlier in admission read is as follows: 1. 5 cm right iliacus intramuscular hematoma. 2. Small amount of retroperitoneal blood in the right lower quadrant. 3. Decreased hepatic attenuation, most commonly seen in the setting of hepatic steatosis. Several enhancing lesions scattered throughout the liver favor small venous malformations (liver hemangiomas). Comparison with prior studies to confirm stability would be useful. 4. Polysplenia Randy Carreno MD - 08/30/2018 5:22 PM CDT [facility] Surgery Consultation Jude Bills Age: [age] year old Date of : 2000 Date of Admission: 08/30/2018 Date of Consult: 08/30/18 Reason for consult: Spontaneous psoas muscle hematoma Requesting service: ED; requesting provider: Dr. Lancaster Assessment and Plan: Assessment: 18 year old male with history of HLHS s/p reconstruction, chronically anticoagulated on warfarin presents with psoas muscle hematoma associated with new genital ecchymosis and normal Hgb. Plan: - No emergent surgical intervention indicated. - Agree with holding warfarin and observing for worsening symptoms/active bleeding - Surgery will follow along Discussed with staff, Dr. Wai Anderson MD PGY-2, General Surgery [phone] Chief Complaint: Admitting Diagnosis: 1. Psoas hematoma, left, secondary to anticoagulant therapy, subsequent encounter History of Present Illness: Jude Bills is a 18 year old male with history of HLHS s/p reconstruction on chronic warfarin, congenital intestinal fixation s/p Bossman procedure, recurrent spontaneous soft tissue hematomas, who presents to [facility] with complaint of psoas hematoma. He reports last Saturday having soreness in the right upper thigh that gradually worsened over the next several days. He tried Tylenol, ice, and tramadol with minimal improvement. The pain appeared worsened with movement of the right leg and was associated with difficulty flexing or extending the right hip. Last Saturday he presented to his local emergency department where a right psoas musclehematoma was identified on CT. This is the first time he's had a deep tissue hematoma. At that time he had an INR of 2.4 and his mother began to hold his warfarin. He returned to [facility] on Saturday for a follow-up CT scan and labs which showed improvement in hemoglobin from 14-16 with stable hematoma. For the remainder of the week he was on self prescribed bedrest until Saturday when he began to ambulate. This morning he began having steady increase in his pain associated with chills, new patchy scrotal ecchymoses, and pain with urinating or passing stool but otherwise remained afebrile. His last bowel movement was yesterday and was normal in appearance without blood or melena. Evaluation at [facility] showed some increase in size of right psoas muscle hematoma as wellas a small quantity of free fluid in the right lower quadrant. His INR was 1.38 and his hemoglobin was stable and within normal limits. Past Medical History: Past Medical History: Diagnosis Date ??? 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 Congenital anomalies of spleen Polysplenia ??? Esophageal reflux ??? 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 [...] Use ??? Smoking status: Never Smoker ??? Tobacco comment: none at home Substance Use Topics ??? Alcohol use: No Family History: Family History Adopted: Yes Problem Relation Age of Onset ??? Unknown/Adopted Other child adopted from [place] at 10mo of age ??? Unknown/Adopted Other ??? Unknown/Adopted Other Allergies: Allergies Allergen Reactions ??? Motrin [Ibuprofen] ??? Seasonal Allergies Itchy eyes, runny nose, hives when around tall grasses Medications: Current Facility-Administered Medications Medication ??? acetaminophen (TYLENOL) tablet 650 mg ??? [START ON 08/31/2018] digoxin (LANOXIN) tablet 250 mcg ??? [START ON 08/31/2018] furosemide (LASIX) half-tab 10 mg ??? [START ON 08/31/2018] metoprolol succinate ER (TOPROL-XL) 24 hr tablet 25 mg ??? montelukast (SINGULAIR) tablet 10 mg ??? morphine (PF) injection 2-4 mg ??? naloxone (NARCAN) injection 0.1-0.4 mg ??? [START ON 08/31/2018] omeprazole (priLOSEC) CR capsule 20 mg ??? sildenafil (REVATIO) tablet 20 mg ??? sodium chloride (PF) 0.9% PF flush 0.2-5 mL ??? sodium chloride (PF) 0.9% PF flush 3 mL ??? sodium chloride 0.9% infusion ??? [START ON 08/31/2018] spironolactone (ALDACTONE) half-tab 25 mg Review of Systems: 10 system ROS performed and negative except per HPI Physical Exam: All vitals have been reviewed Temp: [98 ??F (36.7 ??C)-98.4 ??F (36.9 ??C)] 98 ??F (36.7 ??C) Pulse: [58] 58 Heart Rate: [52-68] 52 Resp: [11-20] 16 BP: (114-125)/(60-82) 120/76 SpO2: [95 %-98 %] 95 % Intake/Output Summary (Last 24 hours) at 08/30/2018 2222 Last data filed at 08/30/2018 1908 Gross per 24 hour Intake 863.75 ml Output 250 ml Net 613.75 ml Physical Examination: Vital Signs: BP 120/76 Pulse 58 Temp 98 ??F (36.7 ??C) (Oral) Resp 16 Ht 1.62 m (5' 3.78) Wt 62.7 kg (138 lb 3.7 oz) SpO2 95% BMI 23.89 kg/m?? Constitutional: awake, alert, cooperative, no apparent distress, and appears stated age Eyes: pupils equal, round and reactive to light and extra-ocular muscles intact ENT: normocepalic, without obvious abnormality Neck: supple, symmetrical, trachea midline Back: symmetric, no curvature and no costal vertebral tenderness Lungs: No increased work of breathing, good air exchange, clear to auscultation bilaterally, no crackles or wheezing Cardiovascular: normal S1 and S2 and no murmur noted; peripheral pulses 2+ bilaterally Abdomen: scars noted hypogastric transverse from chest tubes and RLQ transverse, firm, mildly distended, tenderness noted diffusely without rebound tenderness or voluntary guarding and hernia absent Chest / Breast: Median sternotomy scar; symmetric chest wall Genitounirinary: phallus meatus circumcised, right and left testis normal; patches of ecchymosis on right hemiscrotum and base of penis Musculoskeletal: full range of motion noted Neurologic: Mental Status Exam: Level of Alertness: awake Orientation: person, place, time Cranial Nerves: cranial nerves II-XII are grossly intact Sensory: Sensory intact Neuropsychiatric: General: normal, calm and normal eye contact Affect: normal and pleasant Skin: Bruising limited to genitals Data: All laboratory data reviewed Labs/Imaging/Other: Results for orders placed or performed during the hospital encounter of 08/30/18 (from the past 24 hour(s)) ISTAT INR POCT Result Value Ref Range ISTAT INR 1.5 (H) 0.86 - 1.14 CBC with platelets differential Result Value Ref Range WBC 5.9 4.0 - 11.0 10e9/L RBC Count 5.04 4.4 - 5.9 10e12/L Hemoglobin 14.5 13.3 - 17.7 g/dL Hematocrit 44.0 40.0 - 53.0 % MCV 87 78 - 100 fl MCH 28.8 26.5 - 33.0 pg MCHC 33.0 31.5 - 36.5 g/dL RDW 13.2 10.0 - 15.0 % Platelet Count 188 150 - 450 10e9/L Diff Method Automated Method % Neutrophils 74.1 % % Lymphocytes 16.8 % % Monocytes 7.4 % % Eosinophils 1.2 % % Basophils 0.3 % % Immature Granulocytes 0.2 % Nucleated RBCs 0 0 /100 Absolute Neutrophil 4.4 1.6 - 8.3 10e9/L Absolute Lymphocytes 1.0 0.8 - 5.3 10e9/L Absolute Monocytes 0.4 0.0 - 1.3 10e9/L Absolute Eosinophils 0.1 0.0 - 0.7 10e9/L Absolute Basophils 0.0 0.0 - 0.2 10e9/L Abs Immature Granulocytes 0.0 0 - 0.4 10e9/L Absolute Nucleated RBC 0.0 Comprehensive metabolic panel Result Value Ref Range Sodium 140 133 - 144 mmol/L Potassium 3.8 3.4 - 5.3 mmol/L Chloride 106 98 - 110 mmol/L Carbon Dioxide 26 20 - 32 mmol/L Anion Gap 8 3 - 14 mmol/L Glucose 88 70 - 99 mg/dL Urea Nitrogen 19 7 - 21 mg/dL Creatinine 0.82 0.50 - 1.00 mg/dL GFR Estimate >90 >60 mL/min/[1.73_m2] GFR Estimate If Black >90 >60 mL/min/[1.73_m2] Calcium 9.0 (L) 9.1 - 10.3 mg/dL Bilirubin Total 1.8 (H) 0.2 - 1.3 mg/dL Albumin 4.1 3.4 - 5.0 g/dL Protein Total 7.9 6.8 - 8.8 g/dL Alkaline Phosphatase 97 65 - 260 U/L ALT 25 0 - 50 U/L AST 22 0 - 35 U/L Lipase Result Value Ref Range Lipase 128 0 - 194 U/L Fibrinogen activity Result Value Ref Range Fibrinogen 414 200 - 420 mg/dL ABO/Rh type and screen Result Value Ref Range ABO AB RH(D) Pos Antibody Screen Neg Test Valid Only At [facility] Specimen Expires 09/02/2018 Partial thromboplastin time Result Value Ref Range PTT 43 (H) 22 - 37 sec INR Result Value Ref Range INR 1.38 (H) 0.86 - 1.14 Creatinine POCT Result Value Ref Range Creatinine 0.9 0.50 - 1.00 mg/dL GFR Estimate >90 >60 mL/min/[1.73_m2] GFR Estimate If Black >90 >60 mL/min/[1.73_m2] ISTAT gases elec ica gluc eliot POCT Result Value Ref Range Ph Venous 7.38 7.32 - 7.43 pH PCO2 Venous 45 40 - 50 mm Hg PO2 Venous 28 25 - 47 mm Hg Bicarbonate Venous 26 21 - 28 mmol/L O2 Sat Venous 51 % Sodium 142 133 - 144 mmol/L Potassium 3.8 3.4 - 5.3 mmol/L Glucose 92 70 - 99 mg/dL Calcium Ionized 4.9 4.4 - 5.2 mg/dL Hemoglobin 15.0 13.3 - 17.7 g/dL Hematocrit - POCT 44 40.0 - 53.0 %PC[address] Abdomen Pelvis w Contrast Result Value Ref Range Radiologist flags Hematomas (Urgent) Narrative EXAMINATION: CT ABDOMEN PELVIS W CONTRAST, 08/30/2018 2:22 PM TECHNIQUE: CT images from the lung bases through the symphysis pubis were obtained with contrast. CONTRAST DOSE: 100 ml Isovue 300 COMPARISON: CT 01/04/2016, radiograph 04/24/2018 HISTORY: CT scans 08/21, 08/25 @ [facility]SH expanding hematoma w abdominal pain, history of being on warfarin FINDINGS: Partially seen postsurgical changes of cardiac surgery. Minimal amount of right middle lobe scarring or atelectasis. The liver is diffusely decreased in attenuation. There are several small enhancing lesions seen scattered throughout the liver. For example, in the periphery of the left hepatic lobe on series 2, image 27 there is a 6 mm lesion, and there are at least 3 lesions in the periphery of the right hepatic lobe, largest measuring 7 mm on image 24. Findings suggesting polysplenia, with at least 3 separate appearing spleen in the left upper quadrant. The pancreas is normal in appearance. Both adrenal glands and kidneys are normal. There is malrotation. The colon, including the cecum, is located in the left abdomen, with small bowel loops in the right abdomen. There are no abnormally dilated or thickened loops of small bowel or colon. There is asymmetric enlargement of the right iliac is muscle, with an ill-defined intramuscular lesion demonstrating some increased attenuation measuring approximately 3 x 2.5 cm on series 2, image 64. There is a second smaller area of hemorrhage in the right iliac is muscle on image 72, which may be in contiguity with the more superiorly located hemorrhage. On coronal imaging, this entire area measures approximately 5 cm. Additionally, there is fluid in the right lower quadrant, which appears retroperitoneal, and demonstrates mildly elevated Hounsfield units of 29. This can be best seen on coronal series 4, image 14. There are no concerning bone findings. The L5 vertebral body is narrower than adjacent lumbar vertebral bodies, however no acute fracture is suspected. Impression IMPRESSION: 1. 5 cm right iliacus intramuscular hematoma. 2. Small amount of retroperitoneal blood in the right lower quadrant. 3. Decreased hepatic attenuation, most commonly seen in the setting of hepatic steatosis. Several enhancing lesions scattered throughout the liver favor small venous malformations (liver hemangiomas). Comparison with prior studies to confirm stability would be useful. 4. Polysplenia. [Urgent Result: Hematomas] Finding was identified on 08/30/2018 2:[address] Lancaster was contacted by Dr. Ontiveros at 08/30/2018 2:31 PM and verbalized understanding of the urgent finding. I have personally reviewed the examination and initial interpretation and I agree with the findings. ELINA CASTELLANOS MD UA with Microscopic reflex to Culture Result Value Ref Range Color Urine Light Yellow Appearance Urine Clear Glucose Urine Negative NEG^Negative mg/dL Bilirubin Urine Negative NEG^Negative Ketones Urine Negative NEG^Negative mg/dL Specific [place] Urine 1.029 1.003 - 1.035 Blood Urine Negative NEG^Negative pH Urine 6.5 5.0 - 7.0 pH Protein Albumin Urine Negative NEG^Negative mg/dL Urobilinogen mg/dL Normal 0.0 - 2.0 mg/dL Nitrite Urine Negative NEG^Negative Leukocyte Esterase Urine Negative NEG^Negative Source Midstream Urine WBC Urine 0 0 - 5 /HPF RBC Urine 1 0 - 2 /HPF ----- Attending Attestation: August 30, 2018 Jude Bills was seen and examined with team. I agree with note and plan as discussed. Studies reviewed. Impression/Plan: Doing OK. Making steady progress. Family updated and comfortable with plan as discussed with team. No surgical intervention at this time. Will closely monitor. Randy Carreno MD, PhD Division of Pediatric Surgery, [facility] [phone] documented in this encounter ED Notes Kirsten Patel RN - 08/30/2018 3:59 PM CDT During the administration of the ordered medication, morphine the potential side effects were discussed with the patient/guardian. Kirsten Patel RN - 08/30/2018 12:47 PM CDT Patient followed by cristi, diagnosed with R hip flexor/abdomen hematoma [facility] one week ago. Pain is worse now and extends to pelvis. Guero Wynn MD - 08/30/2018 12:38 PM CDT History Chief Complaint Patient presents with ??? 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 The pain started on 08/20 and they initially thought it was due to muscle aches. The pain continued to worsen, so they brought him to [facility] on 08/21 CT scan at that time showed an abdominal hematoma in the psoas muscle. He went back into the hospital on 08/[address] scan. At this time Dr. Juarez was consulted and recommendedhe stop his Warfarin. At that time his INR was 2.4 and his Hbg was 16. Since then, his abdominal pain has continued to worsen. He reports his stomach feels more full and the pain has spread to his back. This morning he was unable to walk due to the pain and he reports it is a 10/10. He did not eat today due to the pain. He denies recent trauma or injury to his abdomen. No recent chest pain, dizziness, headache, nausea, vomiting or skin rash. He is followed by Dr. Juarez [facility]. He is in the process of transitioning to adult pediatric care. No recent travel, immunizations are UTD. PMHx: Past Medical History: Diagnosis Date ??? Congenital anomalies of intestinal fixation s/p [place] procedure 03/2006 ??? Congenital anomalies of spleen Polysplenia ??? Esophageal reflux ??? 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 [...] (LANOXIN) tablet 250 mcg ??? furosemide (LASIX) half-tab 10 mg ??? gabapentin (NEURONTIN) capsule 300 mg Followed by ??? [START ON 09/02/2018] gabapentin (NEURONTIN) capsule 300 mg ??? metoprolol succinate ER (TOPROL-XL) 24 hr tablet 25 mg ??? montelukast (SINGULAIR) tablet 10 mg ??? naloxone (NARCAN) injection 0.1-0.4 mg ??? omeprazole (priLOSEC) CR capsule 20 mg ??? ondansetron (ZOFRAN-ODT) ODT tab 4 mg ??? oxyCODONE (ROXICODONE) tablet 10 mg ??? oxyCODONE (ROXICODONE) tablet 5 mg ??? polyethylene glycol (MIRALAX/GLYCOLAX) Packet 17 g ??? sildenafil (REVATIO) tablet 20 mg ??? sodium chloride (PF) 0.9% PF flush 0.2-5 mL ??? sodium chloride (PF) 0.9% PF flush 3 mL ??? sodium chloride 0.9% infusion ??? spironolactone (ALDACTONE) half-tab 25 mg ALLERGIES: Motrin [ibuprofen] and Seasonal allergies IMMUNIZATIONS: UTD by report. SOCIAL HISTORY: Jude lives with mom, dad and older sister. He is senior in high school. I have reviewed the Medications, Allergies, Past Medical and Surgical History, and Social History inthe Epic system. Review of Systems Please see HPI for pertinent positives and negatives. All other systems reviewed and found to be negative. Physical Exam BP: 125/69 Pulse: 58 Heart Rate: 68 Temp: 98.4 ??F (36.9 ??C) Resp: 16 Height: 162 cm (5' 3.78) Weight: 66.2 kg (145 lb 15.1 oz) SpO2: 98 % Physical Exam Appearance: Lying in bed in distress. He is unable to walk and has difficulty sitting up or moving. Appears well hydrated and non-toxic. HEENT: Head: Normocephalic and atraumatic. Eyes: PERRL, EOM grossly intact, conjunctivae and scleraeclear. Ears: Tympanic membranes clear bilaterally, without inflammation or effusion. Nose: Nares clear with no active discharge. Mouth/Throat: No oral lesions, pharynx clear with no erythema or exudate. Neck: Supple, no masses, no meningismus. No significant cervical lymphadenopathy. Pulmonary: No grunting, flaring, retractions or stridor. Good air entry, clear to auscultation bilaterally, with no rales, rhonchi, or wheezing. Cardiovascular: Regular rate and rhythm, normal S1 and S2, with no murmurs. Normal symmetric peripheral pulses and brisk cap refill. Abdominal: Distension of the epigastric area, tenderness to light palpation. Decreased bowel sounds.Guarding present. Neurologic: Alert and oriented, cranial nerves II-XII grossly intact, unable to walk to assess gait due to pain. Extremities/Back: No deformity, tender to palpation on right lower back. Skin: No significant rashes, ecchymoses, or lacerations. Genitourinary: Normal circumcised male external genitalia, chele V. No pain with palpation of his testes. Deep red/purple markings on the base of the shaft of the penis and on his right testicle. Thiswas not present when he first arrived. Non-tender, no swelling. ED Course Procedures - Given morphine 4mg x2 for pain management - Labs obtained: normal, see below - CT scan with contrast: see report below, concerning - Cardiology consulted - General surgery consulted Results for orders placed or performed during the hospital encounter of 08/30/18 (from the past 24 hour(s)) Hemoglobin Result Value Ref Range Hemoglobin 14.1 13.3 - 17.7 g/dL Medications sodium chloride (PF) 0.9% PF flush 0.2-5 mL (not administered) sodium chloride (PF) 0.9% PF flush 3 mL (3 mLs Intracatheter Given 09/01/18 0334) sodium chloride 0.9% infusion ( Intravenous Stopped 08/31/18 1245) digoxin (LANOXIN) tablet 250 mcg (250 mcg Oral Given 09/01/1839) furosemide (LASIX) half-tab 10 mg (10 mg Oral Given 09/01/18 0739) metoprolol succinate ER (TOPROL-XL) 24 hr tablet 25 mg (25 mg Oral Given 09/01/18739) montelukast (SINGULAIR) tablet 10 mg (10 mg Oral Given 08/31/182019) omeprazole (priLOSEC) CR capsule 20 mg (20 mg Oral Given 09/01/1840) sildenafil (REVATIO) tablet 20 mg (20 mg Oral Given 09/01/18738) spironolactone (ALDACTONE) half-tab 25 mg (25 mg Oral Given 09/01/1839) naloxone (NARCAN) injection 0.1-0.4 mg (not administered) polyethylene glycol (MIRALAX/GLYCOLAX) Packet 17 g (17 g Oral Given 09/01/1840) gabapentin (NEURONTIN) capsule 300 mg (300 mg Oral Given 08/31/18 1725) Followed by gabapentin (NEURONTIN) capsule 300 mg (300 mg Oral Given 09/01/1840) Followed by gabapentin (NEURONTIN) capsule 300 mg (not administered) oxyCODONE (ROXICODONE) tablet 10 mg (10 mg Oral Given 09/01/18 0735) acetaminophen (TYLENOL) tablet 500 mg (500 mg Oral Given 09/01/18 0735) ondansetron (ZOFRAN-ODT) ODT tab 4 mg (4 mg Oral Given 09/01/18 0735) oxyCODONE (ROXICODONE) tablet 5 mg (not administered) morphine (PF) injection 4 mg (4 mg Intravenous Given 08/30/18 1348) iopamidol (ISOVUE-300) IV solution 61% 100 mL (100 mLs Intravenous Given 08/30/18 1414) sodium chloride 0.9 % bag 500mL for CT scan flush use (65 mLs Intravenous Given 08/30/18 1415) morphine (PF) injection 4 mg (4 mg Intravenous Given 08/30/18 1600) CT Scan 3/16/19 IMPRESSION: 1. 5 cm right iliacus intramuscular hematoma. 2. Small amount of retroperitoneal blood in the right lower quadrant. 3. Decreased hepatic attenuation, most commonly seen in the setting of hepatic steatosis. Several enhancing lesions scattered throughout the liver favor small venous malformations (liver hemangiomas). Comparison with prior studies to confirm stability would be useful. 4. Polysplenia. Old chart from [facility], Care Everywhere, and Patient's copy of records/results reviewed, supported history as above. Labs reviewed and were reassuring . 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 His Warfarin has been held for 5 day now per the recommendation of cardiology. His INR is subtherapeutic but he does not have a mechanical valve. There is no trauma history, therefore this is likely a spontaneous hematoma. Surgery and cardiology were consulted in the ED. He was admitted for further management. I have reviewed the nursing notes. I have reviewed the findings, diagnosis, plan and need for follow up with the patient. Medication List There are no discharge medications for this visit. Final diagnoses: Psoas hematoma, left, secondary to anticoagulant therapy, subsequent encounter 08/30/2018 [facility] EMERGENCY DEPARTMENT Armida Lancaster MD [facility] Pediatrics [facility]-2 p: [phone] This data was collected by the resident working in the Emergency Department. I have read and I agreewith the resident's note. The patient was seen and evaluated by myself and I repeated the history and norton physical exam components. I have discussed with the resident the plan, management options, and diagnosis as documented in their note. The plan of care was also discussed with the family and nurses. The norton portions of the note including the entire assessment and plan reflect my documentation. Yao Alberto. Guero Wynn MD 09/01/18 0839 documented in this encounter Miscellaneous Notes Plan of Care - Rachelle Franco, PT - 09/05/2018 4:52 PM CDT Physical Therapy Discharge Summary Reason for therapy discharge: Discharged to home with outpatient therapy. Progress towards therapy goal(s). See goals on Care Plan in [facility] electronic health record for goal details. Goals met Therapy recommendation(s): Continued therapy is recommended. Rationale/Recommendations: gait mechanics and strength. Plan of Care - Delicia Ontiveros RN - 09/05/2018 2:41 PM CDT Jude has been alert and oriented today. He is afebrile and his vital signs are stable. Pain rated asa 6-7/10. He reports the location as lower abdominal and worsens with coughing or straining. He declined additional PRN medications this shift. Jude's lung sounds are clear and equal; his heart rate and rhythm are regular, murmur heard on auscultation. His abdomen is soft and mildly tender on the right side; guarding noticed. He is voiding. No stool this shift; miralax held for reported loose stools yesterday. He has a good appetite and is tolerating his regular diet. PIV placed for CT scan this afternoon. Plan to discharge to home after preliminary results back. Jude's mom has been present at his bedside throughout the day, is attentive to his needs and actively involved in his plan of care. Continue to monitor and contact [facility] with changes or concerns. Pharmacy - Discharge Medication Reconciliation and Education - Henry Singh RP - 09/05/2018 2:31 PMCDT Discharge medication review for this patient completed. Pharmacist provided medication teaching for discharge with a focus on new medications/dose changes. The discharge medication list was reviewed with Jude and Jaimie and the following points were discussed, as applicable: Name, description, purpose,dose/strength, duration of medications, special storage requirements, common side effects, food/medications to avoid, action to be taken if dose is missed, when to call MD, safe disposal of unused medications and how to obtain refills. They were engaged during teaching and verbalized understanding. Only had MS Contin, morphine, Valium, APAP, Senna, and Miralax medications in hand during teach due to all other medications available through home supply. The following medications were discussed: Current Discharge Medication List START taking these medications Details diazepam (VALIUM) 1 MG/ML solution Take 0.5-1 mLs (0.5-1 mg) by mouth every 6 hours as needed for muscle spasms or pain Qty: 14 mL, Refills: 0 Associated Diagnoses: Hematoma of right psoas region to anticoagulant therapy, initial encounter morphine (MS CONTIN) 15 MG CR tablet Take 2 tablets (30 mg) by mouth every 12 hours Step 1: 15 mg bymouth in the morning, 30 mg po in the evening for at least two days (longer if needing more than 2 PRNs in 24 hours), then Step 2: 15 mg by mouth twice daily for at least two days, then Step 3: 15 mg at bedtime for at least two days, then Stop extended-release morphine, continue as needed morphine only Qty: 32 tablet, Refills: 0 Associated Diagnoses: Hematoma of right psoas region to anticoagulant therapy, initial encounter morphine (MSIR) 15 MG IR tablet Take 0.5 tablets (7.5 mg) by mouth every 4 hours as needed for moderate to severe pain or breakthrough pain Qty: 15 tablet, Refills: 0 Associated Diagnoses: Hematoma of right psoas region to anticoagulant therapy, initial encounter polyethylene glycol (MIRALAX/GLYCOLAX) packet Take 17 g by mouth daily Qty: 1000 g, Refills: 1 Comments: Dose update - No rx sent Associated Diagnoses: Drug-induced constipation sennosides (SENOKOT) 8.6 MG tablet Take 1 tablet by mouth 2 times daily Qty: 30 tablet, Refills: 0 Associated Diagnoses: Drug-induced constipation CONTINUE these medications which have CHANGED Details acetaminophen (TYLENOL) 500 MG tablet Take 1 tablet (500 mg) by mouth every 4 hours Qty: 60 tablet, Refills: 1 Associated Diagnoses: Hematoma of right psoas region to anticoagulant therapy, initial encounter CONTINUE these medications which have NOT CHANGED Details digoxin (LANOXIN) 250 MCG tablet Take 1 tablet (250 mcg) by mouth daily Qty: 30 tablet, Refills: 11 Associated Diagnoses: SVT (supraventricular tachycardia) (H) furosemide (LASIX) 20 MG tablet Take 0.5 tablets (10 mg) by mouth daily Qty: 15 tablet, Refills: 2 Associated Diagnoses: Hypoplastic left heart syndrome metoprolol succinate ER (TOPROL-XL) 25 MG 24 hr tablet TAKE ONE TABLET BY MOUTH ONE TIME DAILY Qty: 30 tablet, Refills: 2 Associated Diagnoses: Tachycardia montelukast (SINGULAIR) 10 MG tablet Take 10 mg by mouth At Bedtime omeprazole (PRILOSEC) 20 MG CR capsule Take 1 capsule twice daily for one week then once daily Qty: 90 capsule, Refills: 3 Associated Diagnoses: Chest pain, unspecified type sildenafil (REVATIO) 20 MG tablet Take 1 tablet (20 mg) by mouth three times daily for pulmonary hypertension. Never use with nitroglycerin, terazosin or doxazosin. Qty: 90 tablet, Refills: 11 Associated Diagnoses: Single ventricle with heterotaxia syndrome spironolactone (ALDACTONE) 25 MG tablet Take 1 tablet (25 mg) by mouth daily Qty: 30 tablet, Refills: 11 Associated Diagnoses: Hypoplastic left heart syndrome STOP taking these medications HYDROcodone-acetaminophen (NORCO) 5-325 MG tablet Comments: Reason for Stopping: warfarin (COUMADIN) 5 MG tablet Comments: Reason for Stopping: I spent approximately 30 minutes in patient's room doing discharge medication teaching. Henry Singh, PharmD Pediatric Discharge Pharmacist [phone] Plan of Care - Tylor Stern RN - 09/05/2018 6:10 AM CDT AVSS. Pain in groin and abdomen rated at 5. No PRN given. Reported hot flash after ms contin. Resolved within the hour. 1x loose stool. Good UO. Mother at bedside. Continue to monitor and update MD with any changes. Plan of Care - Ruba Burton RN - 09/04/2018 5:23 PM CDT VSS. Rating pain 4-7 in abdomen and/or head, but declining use of PRN pain meds until 1830. Gave valium x1 at this time. Encouraging more hydrating beverages and increased PO. Stooled x2 this afternoon. Hematoma size/color unchanged. Mom at bedside and attentive to pt needs. Plan of Care - Rachelle Franco, PT - 09/04/2018 11:44 AM CDT [employer] Analyst PT Patient plan for discharge: Home with OP PT Current status: Patient educated on plan moving forward in regards to PT - plan for patient to attend outpatient PT to progress strength and gait mechanics to allow patient to return to weight lifting and gymnastics with PT progressing patient appropriately. Session focused on progressing patients gait mechanics without use of FWW - will not need FWW upon discharge to home. Patient also participated in LE strengthening exercises with minimal pain reported in abdomen. Barriers to return to prior living situation: none. Recommendations for discharge: Home with OP PT Rationale for recommendations: Will continue to follow during IP stay to allow for continued progression of gait mechanics and strength. Entered by: Rachelle Franco 09/04/2018 11:44 AM Plan of Care - Dulce Oneill RN - 09/04/2018 5:50 AM CDT VSS, afebrile. Pain in abdomen, groin and right side of stomach managed with scheduled Tyl reporting5-6/10 pain. No PRNs given. Pt given lotion for itchiness. Neurologically intact. Voiding. No stools. Hematoma unchanged throughout shift. Mom at bedside. Continuing to monitor. Plan of Care - Ruba Burton RN - 09/03/2018 5:01 PM CDT VSS. Pain 4-6/10 mainly in abdomen, but also in groin. No PRNS given today. Plan to start MS contin this evening and use valium for breakthrough pain if needed. Up walking in halls x3 today. Increased miralax frequency and had large stool x1. Plan to keep up with BID miralax administration. Mom at bedside and attentive to pt needs. Continue to monitor. Plan of Care - Dulce Oneill RN - 09/03/2018 5:12 AM CDT Managed pt pain with scheduled Tyl and Morphine. Rated pain 5-8/10. Hematoma marked and unchanged. Swelling in scrotum. Voiding well. Low HR 40-50s. Slightly elevated BP. No stool. Sips of sprite. Neurologically intact. Mom at bedside. Continuing to monitor. Provider Notification - Dulce Oneill RN - 09/03/2018 2:35 AM CDT 09/03/18 0200 Vitals Heart Rate (!) 45 Heart Rate/Source Monitor Provider notified of frequent bradycardia to the 40s. Cap refills in LEs 2 secs, UEs 3 secs. No interventions at this time. Provider Notification - Dulce Oneill RN - 09/03/2018 1:05 AM CDT 09/03/18 0000 Vitals Heart Rate 54 Heart Rate/Source Auscultated Rhythm Regularity Apical pulse regular BP 121/65 Provider notified of low HR and high BP. No interventions at this time. Plan of Care - Tresa Gutierres RN - 09/02/2018 11:30 PM CDT [id number] Pt's VSS. Pt having complaints of pain, given scheduled Tylenol & Morphine and 1 PRN dose of Valium. Pt continues to have hesitancy and discomfort with voiding. NS bolus given. Bladder scan post void was 58ml. Mom at bedside and updated on POC. Hourly rounding completed. Plan of Care - Magda Westbrook RN - 09/02/2018 2:37 PM CDT Pt rated lower abdominal pain moderate to severe, morphine and tylenol given. Good PO intake. Ambulated in fish x2. A&O x4. No signs of bleeding noted. Mother present at bedside and reviewed POC. Hourly rounding completed. Plan of Care - Tamara Cohen, PT - 09/02/2018 2:14 PM CDT PT Unit 6: Jude was seen by PT for initial evaluation and treatment was initiated. Facilitated gait training with 2WW for improving pain and gait pattern. Pt tolerated well ambulating a full lap aroundthe unit. Instructed pt to ambulate 4x/day. Will follow 3x/week to improve mobility as necessary. [employer] Log[employer] Analyst PT Patient plan for discharge: TBD Current status: Safe and Independent with mobility, 2WW with ambulation for comfort Barriers to return to prior living situation: Medical POC Recommendations for discharge: Home with assist Rationale for recommendations: Independent with mobility Entered by: Tamara Cohen 09/02/2018 2:16 PM aTmara Cohen, PT, DPT [phone] Plan of Care - Maddie Eugene RN - 09/02/2018 6:34 AM CDT AVSS. Patient continues to rate groin pain 8/10. Patient appears to be sleeping well before being woken up to ask about pain/meds. Tyl/morphine given q4-6 hours (RN spaced a bit while sleeping). Scrotal edema appears unchanged from last shift. Patient reports difficulty urinating (has to sit on toiletfor awhile before he can urinate). Taking PO, good UOP. Mother at bedside. Plan of Care - Zelda Rhoades RN - 09/01/2018 5:24 PM CDT AVSS, afebrile. Pt having increase in pain, meds adjusted, 1 dose of PRN valium given, 1 dose of PRNmorphine given. Head CT ordered for change in mental status- negative. Bruising to groin increasing,pt reports it's difficult to urinate but not painful. Continue to monitor. Plan of Care - Lucina Eugene, PT - 09/01/2018 11:41 AM CDT PT: PT orders received. Per discussion with team still trying to control pain and complete further work-up. PT will hold evaluation today and initiate tomorrow as needed. Plan of Care - Tylor Stern RN - 09/01/2018 6:11 AM CDT AVSS. Lung sounds clear. No nausea. Pain in right and left upper thighs reported. Scheduled oxy and tylenol given with good results. Pt sat up in chairand rotated his position in bed to help alleviate pain. PRN morphine 4mg give at 0600 for breakthrough pain in right thigh. Pt c/o nausea. Nothing in or ders for nausea. MD notified. Mother and father at bedside.Continue to monitor and update MD with any changes. Plan of Care - Melissa Pastrana RN - 08/31/2018 10:06 PM CDT VSS afebrile. Pain 5-8/10. POing well. Voiding. No stool. New hematomas noted, see previous notes. Parents at bedside and updated on POC. Provider Notification - Melissa Pastrana RN - 08/31/2018 5:52 PM CDT Jennifer Saba MD notified of patient visibly upset in pain and new onset headache. Have exhausted all pharmacological options for pain control. Continue to monitor. Provider Notification - Melissa Pastrana RN - 08/31/2018 4:46 PM CDT Jennifer Saba MD notified of patient having increase pain in testicles despite having oxycodone. Atbedside to assess. New hematoma noted on testicle. Marked with marker. Penile hematoma unchanged. New hematoma also noted on R groin. Gabapentin ordered PRN. Continue to monitor. Plan of Care - Arthur Alvarez RN - 08/31/2018 1:55 PM CDT AVSS. LS clear. Sating well on RA. C/o pain 1-03/26, PRN morphine x1, order changed to PRN oxy. GoodPO, good UO. No stool, scheduled miralax. Mom and Dad at bedside. Plan of Care - Tylor Stern RN - 08/31/2018 5:32 AM CDT AVSS. HR dipped to upper 40s briefly but returned to 50's while sleeping. Pt reported pain in hips and back rated at 4-5. Morphine given 1x 4mg. Pain then reported in rt thigh at a 10. MD notified. Tylenol given early and pt has been sleeping since. Hematoma on scrotum marked. Moderate UO. Parents at bedside. Continue to monitor and update MD with any changes. Plan of Care - Melissa Pastrana RN - 08/30/2018 10:39 PM CDT Admitted to around 1830. VSS afebrile. Pain 0-5/10, controlled on scheduled tylenol and PRN morphine x1. POing well. Voiding. Hematoma on scrotum. Belly is slightly more firm, MDs aware. Mom and dadat bedside and updated on POC. Pharmacy-Admission Medication History - Asiya Bautista - 08/30/2018 5:47 PM CDT Admission medication history interview status for the 08/30/2018 admission is complete. See [facility] admission navigator for allergy information, pharmacy, prior to admission medications and immunization status. Medication history interview sources: Patient, Mother, Care Everywhere ([facility]), Office Visit Note 07/21/18 Changes made to UROLOGY PHYSICIAN ASSISTANT medication list (reason) Added: [place], Tylenol Deleted: Miralax powder: take 17 g by mouth daily Changed: None Patient Medication Preference Patient prefers medications come as pills Patient Medication Schedule Preference The patient does not have a preferred timing for medications, our standard may be used Patient Supplied Medications The patient does not have any home medications approved for use while inpatient Additional medication history information (including reliability of information, actions taken by pharmacist): -Patient/mother were good historians. -Allergy of Ibuprofen listed as a precaution because patient is on Warfarin; not true allergy. -Patient only took his morning sildenafil dose today, needs afternoon and evening doses. -Warfarin doses have been held since last Saturday08/24/18. -INR monitored by [facility]. Has been stable on this dose. -Was prescribed [place] last Saturday (08/23/18) and has been taking approx. 1 tablet per day for pain. -Taking Tylenol Extra Strength around 3 times daily for pain control as well (not exceeding 4 g per day with [place] tablets) Prior to Admission medications Medication Sig Last Dose Taking? Auth Provider acetaminophen (TYLENOL) 500 MG tablet Take 500 mg by mouth every 8 hours as needed for pain 08/30/2018 at Unknown time Yes Unknown, Entered By History digoxin (LANOXIN) 250 MCG tablet Take 1 tablet (250 mcg) by mouth daily 08/30/2018 at AM Yes Cordell Juarez MD furosemide (LASIX) 20 MG tablet Take 0.5 tablets (10 mg) by mouth daily 08/30/2018 at AM Yes Cordell Juarez MD HYDROcodone-acetaminophen (NORCO) 5-325 MG tablet Take 1 tablet by mouth every 6 hours as needed forsevere pain 08/29/2018 at Unknown time Yes Unknown, Entered By History metoprolol succinate ER (TOPROL-XL) 25 MG 24 hr tablet TAKE ONE TABLET BY MOUTH ONE TIME DAILY 08/30/2018 at AM Yes Cordell Juarez MD montelukast (SINGULAIR) 10 MG tablet Take 10 mg by mouth At Bedtime 08/29/2018 at PM Yes Unknown, Entered By History omeprazole (PRILOSEC) 20 MG CR capsule Take 1 capsule twice daily for one week then once daily 08/30/2018 at AM Yes Cordell Juarez MD sildenafil (REVATIO) 20 MG tablet Take 1 tablet (20 mg) by mouth three times daily for pulmonary hypertension. Never use with nitroglycerin, terazosin or doxazosin. 08/30/2018 at AM Yes Cordell Juarez MD spironolactone (ALDACTONE) 25 MG tablet Take 1 tablet (25 mg) by mouth daily 08/30/2018 at AM Yes Cordell Juarez MD warfarin (COUMADIN) 5 MG tablet Take 1 tablet (5 mg) by mouth on Sat, Sat, Sat, Sat, Sun. Take 1/2 tablet (2.5 mg) on , . 08/24/2018 Cordell Juarez MD Medication history completed by: DANIEL Christianson Associated attestation - Tracy Knowles RPH - 08/31/2018 5:07 PM CDT In supervising the student, I have reviewed and verified the student's documentation and found it franck correct and complete. Tracy Steineck, PharmD documented in this encounter Plan of Treatment Upcoming Encounters Date Type Specialty Care Team Description 07/27/2022 Ancillary Procedure Cardiology Cordell Juarez MD [address] [facility] [id number] [place], [place] [id number] (Wo rk) 07/27/2022 Office Visit Cardiology Cordell Juarez MD [address] [facility] [address] [place], [place] [phone] (Wo rk) Scheduled Referrals Name Type Priority Associated Diagnoses Order S chedule Physical Therapy Referral Routine Hematoma of right psoas 1 Occurrences starting Referral region to anticoagulant 08/16 until therapy, initial 09/05/2019 encounter documented as of this encounter Procedures Procedure Name Priority Date/Time Associated Diagnosis Comme nts CT ABDOMEN PELVIS W STAT 09/05/2018 3:13 Resul ts for this CONTRAST PM CDT procedure are i n the results section. HEMOGLOBIN STAT 09/05/2018 1:30 Drug-induced Results for this PM CDT constipation procedure are i n the results section. CREATININE STAT 09/05/2018 1:30 Drug-induced Results for this PM CDT constipation procedure are i n the results section. ROUTINE UA WITH Routine 09/01/2018 1:30 Psoas hematoma, left, Results for this MICROSCOPIC REFLEX TO PM CDT secondary to proced ure are in CULTURE anticoagulant the results therapy, subsequent section. encounter CT HEAD W/O CONTRAST STAT 09/01/2018 11:58 Res ults for this AM CDT procedure are i n the results section. HEMOGLOBIN Routine 09/01/2018 7:11 Psoas hematoma, left, Res ults for this AM CDT secondary to procedure are i n anticoagulant the results therapy, subsequent section. encounter HEMOGLOBIN Routine 08/31/2018 7:21 Psoas hematoma, left, Res ults for this AM CDT secondary to procedure are i n anticoagulant the results therapy, subsequent section. encounter ROUTINE UA WITH STAT 08/30/2018 2:40 Results f or this MICROSCOPIC REFLEX TO PM CDT proced ure are in CULTURE the results section. CT ABDOMEN PELVIS W STAT 08/30/2018 2:22 Resul ts for this CONTRAST PM CDT procedure are i n the results section. CBC WITH PLATELETS & STAT 08/30/2018 1:33 Resu lts for this DIFFERENTIAL PM CDT procedure are i n the results section. ISTAT GASES Routine 08/30/2018 1:33 Results for this ELECTROLYTES ICA PM CDT procedure a re in GLUCOSE VENOUS POCT the resu lts section. INR STAT 08/30/2018 1:33 Results for this PM CDT procedure are i n the results section. PARTIAL THROMBOPLASTIN STAT 08/30/2018 1:33 Re sults for this TIME PM CDT procedure are i n the results section. LIPASE STAT 08/30/2018 1:33 Results for this PM CDT procedure are i n the results section. FIBRINOGEN ACTIVITY STAT 08/30/2018 1:33 Resul ts for this PM CDT procedure are i n the results section. ISTAT CREATININE POCT Routine 08/30/2018 1:33 Res ults for this PM CDT procedure are i n the results section. COMPREHENSIVE STAT 08/30/2018 1:33 Results for this METABOLIC PANEL PM CDT procedure ar e in the results section. ABO/RH TYPE AND SCREEN STAT 08/30/2018 1:33 Re sults for this PM CDT procedure are i n the results section. ISTAT INR POCT Routine 08/30/2018 1:32 Results fo r this PM CDT procedure are i n the results section. documented in this encounter Results CT Abdomen Pelvis w Contrast (09/05/2018 3:13 PM CDT) Anatomical Region Laterality Modality Abdomen/Pelvis, SUBRAD CT BODY, UMP CT ABDOMEN PELVIS, Computed Tomography RAD CT Specimen (Source) Anatomical Location Collection Method / Collectio n Time Received Time / Laterality Volume Impressions 09/05/2018 3:43 PM CDT IMPRESSION: 1. Resolving previously noted right catrina cus/retroperitoneal hemorrhage. No new abnormality appreciat ed to explain patient's acute symptoms. 2. Postoperative changes of Fontan proce dure with findings suggestive of chronic hepatic congestion. 3. Heterotaxy with malrotation and polys plenia. TAMMI CORTEZ MD Narrative 09/05/2018 3:43 PM CDT EXAMINATION: CT ABDOMEN PELVIS W CONTRAST ??09/05/2018 3:13 PM ?? CLINICAL HISTORY: Abd pain, unspecified; history of RP bleed, abdominal pain COMPARISON: 08/30/2018 PROCEDURE COMMENTS: CT of the abdomen wa s performed with 98ml isovue 300 intravenous contrast. FINDINGS: Lower thorax: Operative changes of Fonta n procedure. Heart is normal in size without pleural effusion. Right- sided aortic arch noted. There is linear atelectasis without consolidat ion. Abdomen and pelvis: Heterogeneous appear ance of the liver parenchyma with redemonstration of hyperenhancing f ocus in the right hepatic lobe on image 27 of series 2, similar in size and appearance. The left enhancing focus is partially visualized on image 28. No new suspicious lesion is appreciated. Vasculature is pa tent and there is no hepatic dilatation. Adrenal glands, kidneys, souza creas, and gallbladder are normal in appearance. Polysplenia again noted. Malrotation with moderate stool in the c olon. No abnormal bowel wall thickening or inflammatory change. Vascu lature is patent. Decreased conspicuity of previously noted hematoma within the right iliacus. Stranding within the infrarenal retroper itoneal fat is also less pronounced. No new retroperitoneal abnor mality. Trace free fluid has decreased from the prior. Osseous structures: Stable. L5 vertebral body remains mildly narrowed and there is spinal canal stenosis. No s uspicious lesion. Procedure Note Tammi Cortez MD - 09/05/2018Fo rmatting of this note might be different from the original. EXAMINATION: CT ABDOMEN PELVIS W CONTRAS T 09/05/2018 3:13 PM CLINICAL HISTORY: Abd pain, unspecified; history of RP bleed, abdominal pain COMPARISON: 08/30/2018 PROCEDURE COMMENTS: CT of the abdomen wa s performed with 98ml isovue 300 intravenous contrast. FINDINGS: Lower thorax: Operative changes of Fonta n procedure. Heart is normal in size without pleural effusion. Right- sided aortic arch noted. There is linear atelectasis without consolidat ion. Abdomen and pelvis: Heterogeneous appear ance of the liver parenchyma with redemonstration of hyperenhancing f ocus in the right hepatic lobe on image 27 of series 2, similar in size and appearance. The left enhancing focus is partially visualized on image 28. No new suspicious lesion is appreciated. Vasculature is pa tent and there is no hepatic dilatation. Adrenal glands, kidneys, souza creas, and gallbladder are normal in appearance. Polysplenia again noted. Malrotation with moderate stool in the c olon. No abnormal bowel wall thickening or inflammatory change. Vascu lature is patent. Decreased conspicuity of previously noted hematoma within the right iliacus. Stranding within the infrarenal retroper itoneal fat is also less pronounced. No new retroperitoneal abnor mality. Trace free fluid has decreased from the prior. Osseous structures: Stable. L5 vertebral body remains mildly narrowed and there is spinal canal stenosis. No s uspicious lesion. IMPRESSION: 1. Resolving previously noted right catrina cus/retroperitoneal hemorrhage. No new abnormality appreciat ed to explain patient's acute symptoms. 2. Postoperative changes of Fontan proce dure with findings suggestive of chronic hepatic congestion. 3. Heterotaxy with malrotation and polys plenia. TAMMI CORTEZ MD Chuyita Slater APRN, CNP IMG CT ORDERABLES Creatinine (09/05/2018 1:30 PM CDT) athologist Signature Creatinine 0.90 0.50 - 1.00 09/05/2018 [facility] mg/dL 1:58 PM CDT [facility] GFR Estimate >90 >60 09/05/2018 [facility] mL/min/{1.7 1:58 PM CDT [facility] 3_m2} [facility] Comment: Non GFR Calc Starting 06/03/2018, serum creatinine ba sed estimated GFR (eGFR) will be calculated using the Chronic Kidney Dise [facility] Epidemiology Collaboration (CKD-EPI) equation. GFR Estimate If >90 >60 mL/min/{1.73_m2} 09/05/2018 1: 58 PM [facility] Black [facility] Comment: GFR Calc Starting 06/03/2018, serum creatinine ba sed estimated GFR (eGFR) will be calculated using the Chronic Kidney Dise [facility] Epidemiology Collaboration (CKD-EPI) equation. Specimen Anatomical Collection Method Collection Time Receive d Time (Source) Location / / Volume Laterality Blood specimen 09/05/2018 1:30 PM 019 1:37 (specimen) CDT PM CDT Chuyita Crabtree Manish Slater APRN, CNP LAB - BLOOD ORDERAB LES Performing Organization Address City/State/ZIP Code Phon e Number [facility] [address] [place] [address] [facility] Hemoglobin (09/05/2018 1:30 PM CDT) athologist Signature Hemoglobin 14.6 13.3 - 17.7 09/05/2018 [facility] g/dL 1:43 PM CDT [facility] Specimen Anatomical Collection Method Collection Time Receive d Time (Source) Location / / Volume Laterality Blood specimen 09/05/2018 1:30 PM 019 1:37 (specimen) CDT PM CDT Chuyita Hammond Entinger [employer] LAB - BLOOD ORDERAB LES Performing Organization Address City/State/ZIP Code Phon e Number [facility] [address] [place] [address] [facility] (ABNORMAL) UA with Microscopic reflex to Culture (09/01/2018 1:30 PM CDT) [facility] gist Method Time Signature Color Urine Yellow 09/01/2018 [facility] 1:56 PM CDT [facility] Appearance Urine Clear 09/01/2018 [facility] F 1:56 PM CDT [facility] Glucose Urine Negative NEG^Negat 09/01/2018 [facility] colleen mg/dL 1:56 PM CDT [facility] Bilirubin Urine Negative NEG^Negat 09/01/2018 [facility] colleen 1:56 PM CDT [facility] Ketones Urine Negative NEG^Negat 09/01/2018 [facility] colleen mg/dL 1:56 PM CDT [facility] Specific [place] 1.016 1.003 - 09/01/2018 [facility] F Urine 1.035 1:56 PM CDT [facility] Blood Urine Negative NEG^Negat 09/01/2018 [facility] colleen 1:56 PM CDT [facility] pH Urine 5.5 5.0 - 7.0 09/01/2018 [facility] pH 1:56 PM CDT [facility] Protein Albumin Negative NEG^Negat 09/01/2018 [facility] Urine colleen mg/dL 1:56 PM CDT [facility] Urobilinogen Normal 0.0 - 2.0 09/01/2018 [facility] mg/dL mg/dL 1:56 PM CDT [facility] Nitrite Urine Negative NEG^Negat 09/01/2018 [facility] colleen 1:56 PM CDT [facility] Leukocyte Negative NEG^Negat 09/01/2018 [facility] Esterase Urine colleen 1:56 PM CDT [facility] Source Midstream 09/01/2018 [facility] Urine 1:39 PM CDT [facility] WBC Urine 1 0 - 5 09/01/2018 [facility] 1:56 PM CDT [facility] RBC Urine 0 0 - 2 09/01/2018 [facility] /HPF 1:56 PM CDT [facility] Mucous Urine Present (A) NEG^Negat 09/01/2018 [facility] colleen /LPF 1:56 PM CDT [facility] Specimen (Source) Anatomical Collection Method Collection Time Re ceived Time Location / / Volume Laterality Examination of MID-STREAM URINE 09/01/2018 1:30 2018 1:39 midstream urine SPECIMEN / PM CDT PM CDT specimen Unknown (procedure) Kevin Carrillo MD LAB - URINE ORDERABLES Performing Organization Address City/State/ZIP Code Phon e Number [facility] [address] [place] [address] [facility] Head CT w/o contrast (09/01/2018 11:58 AM CDT) Anatomical Region Laterality Modality Head, SUBRAD CT NEURO, SUBRAD CT NEURO, UMP CT NEURO, Computed Tomography RAD CT Specimen (Source) Anatomical Location Collection Method / Collectio n Time Received Time / Laterality Volume Impressions 09/01/2018 12:51 PM CDT Impression: ??No acute intracranial pathology. I have personally reviewed the examinati on and initial interpretation and I agree with the findings. LEONILA VEGA MD Narrative 09/01/2018 12:[address] without contrast09/01/2018 11:58 AM History: Ped, headache, neuro deficit or signs of incr ICP. Comparison: none Technique: Axial images through the brai n obtained without intravenous contrast, reviewed in bone, brain, and s ubdural windows. Findings: There is no evidence of intrac ranial hemorrhage. There is no mass-effect or midline shift. The ventri cles do not appear enlarged out of proportion to the cerebral sulci. Hypoplastic right frontal sinus. Rest of the visualized portions of the paranasal sinuses and mastoid air ce lls are unremarkable on bone windows. Procedure Note Leonila Vega MD - 09/01/2018Form atting of this note might be different from the original. Head CT without contrast09/01/2018 11:58 AM History: Ped, headache, neuro deficit or signs of incr ICP. Comparison: none Technique: Axial images through the brai n obtained without intravenous contrast, reviewed in bone, brain, and s ubdural windows. Findings: There is no evidence of intrac ranial hemorrhage. There is no mass-effect or midline shift. The ventri cles do not appear enlarged out of proportion to the cerebral sulci. Hypoplastic right frontal sinus. Rest of the visualized portions of the paranasal sinuses and mastoid air ce lls are unremarkable on bone windows. Impression: No acute intracranial pathol ogy. I have personally reviewed the examinati on and initial interpretation and I agree with the findings. LEONILA VEGA MD Kevin Carrillo MD IMG CT ORDERABLES Hemoglobin (09/01/2018 7:11 AM CDT) athologist Signature Hemoglobin 14.1 13.3 - 17.7 09/01/2018 [facility] g/dL 7:20 AM CDT [facility] Specimen Anatomical Collection Method Collection Time Receive d Time (Source) Location / / Volume Laterality Blood specimen 09/01/2018 7:11 AM 019 7:13 (specimen) CDT AM CDT Jennifer Saba MD LAB - BLOOD ORDERABLES Performing Organization Address City/[facility]/ZIP Code Phon e Number [address] Hemoglobin (08/31/2018 7:21 AM CDT) athologist Signature Hemoglobin 13.9 13.3 - 17.7 08/31/2018 [facility] g/dL 7:38 AM CDT [facility] Specimen Anatomical Collection Method Collection Time Receive d Time (Source) Location / / Volume Laterality Blood specimen 08/31/2018 7:21 AM 019 7:22 (specimen) CDT AM CDT Kevin Carrillo MD LAB - BLOOD ORDERABLES Performing Organization Address City/[facility]/ZIP Code Phon e Number [address] UA with Microscopic reflex to Culture (08/30/2018 2:40 PM CDT) Patholo gist Method Time Signature Color Urine Light Yellow 08/30/2018 [facility] 2:49 PM CDT [facility] Appearance Urine Clear 08/30/2018 [facility] F 2:49 PM T [facility] Glucose Urine Negative NEG^Negat 08/30/2018 [facility] colleen mg/dL 2:49 PM T [facility] Bilirubin Urine Negative NEG^Negat 08/30/2018 [facility] colleen 2:49 PM T [facility] Ketones Urine Negative NEG^Negat 08/30/2018 [facility] colleen mg/dL 2:49 PM T [facility] Specific [place] 1.029 1.003 - 08/30/2018 [facility] F Urine 1.035 2:49 PM T [facility] Blood Urine Negative NEG^Negat 08/30/2018 [facility] colleen 2:49 PM T [facility] pH Urine 6.5 5.0 - 7.0 08/30/2018 [facility] pH 2:49 PM T [facility] Protein Albumin Negative NEG^Negat 08/30/2018 [facility] Urine colleen mg/dL 2:49 PM T [facility] Urobilinogen Normal 0.0 - 2.0 08/30/2018 [facility] mg/dL mg/dL 2:49 PM T [facility] Nitrite Urine Negative NEG^Negat 08/30/2018 [facility] colleen 2:49 PM T [facility] Leukocyte Negative NEG^Negat 08/30/2018 [facility] Esterase Urine colleen 2:49 PM T [facility] Source Midstream 08/30/2018 [facility] Urine 2:45 PM T [facility] WBC Urine 0 0 - 5 08/30/2018 [facility] /HPF 2:49 PM T [facility] RBC Urine 1 0 - 2 08/30/2018 [facility] /HPF 2:49 PM T [facility] Specimen (Source) Anatomical Collection Method Collection Time Re ceived Time Location / / Volume Laterality Examination of MID-STREAM URINE 08/30/2018 2:40 2018 2:45 midstream urine SPECIMEN / PM CDT PM CDT specimen Unknown (procedure) Armida Lancaster MD LAB - URINE ORDERABLES Performing Organization Address City/State/ZIP Code Phon e Number [facility] [address] [place] [address] [facility] (ABNORMAL) CT Abdomen Pelvis w Contrast (08/30/2018 2:22 PM CDT) [facility] gist Method Time Signature Radiologist Hematomas RADIOLOGY flags (Urgent) RESULTS Anatomical Region Laterality Modality Abdomen/Pelvis, SUBRAD CT BODY, UMP CT ABDOMEN PELVIS, Computed Tomography RAD CT Specimen (Source) Anatomical Location Collection Method / Collectio n Time Received Time / Laterality Volume Impressions 08/30/2018 4:11 PM CDT IMPRESSION: 1. 5 cm right iliacus intramuscular ward carson. 2. Small amount of retroperitoneal blood in the right lower quadrant. 3. Decreased hepatic attenuation, most c ommonly seen in the setting of hepatic steatosis. Several enhancing les ions scattered throughout the liver favor small venous malformations ( liver hemangiomas). Comparison with prior studies to confirm stability would be useful. 4. Polysplenia. [Urgent Result: Hematomas] Finding was identified on 08/30/2018 2:[address] Lancaster was contacted by Dr. Ontiveros at 08/30/2018 2:31 PM and verbalized understanding of the urgent f inding. I have personally reviewed the examinati on and initial interpretation and I agree with the findings. ELINA CASTELLANOS MD Narrative 08/30/2018 4:11 PM CDT EXAMINATION: CT ABDOMEN PELVIS W CONTRAST, 08/30/2018 2:22 PM TECHNIQUE: CT images from the lung bases through the symphysis pubis were obtained ??with contrast. CONTRAST DOSE: 100 ml Isovue 300 COMPARISON: CT 01/04/2016, radiograph 04/24/2018 HISTORY: CT scans 08/21, 08/25 @ [facility] expand ing hematoma w abdominal pain, history of being on warfarin FINDINGS: Partially seen postsurgical changes of c ardiac surgery. Minimal amount of right middle lobe scarring or atelect asis. The liver is diffusely decreased in atte nuation. There are several small enhancing lesions seen scattered t hroughout the liver. For example, in the periphery of the left he patic lobe on series 2, image 27 there is a 6 mm lesion, and there are at least 3 lesions in the periphery of the right hepatic lobe, lar gest measuring 7 mm on image 24. Findings suggesting polysplenia, wit h at least 3 separate appearing spleen in the left upper quadr ant. The pancreas is normal in appearance. Both adrenal glands and kidn eys are normal. There is malrotation. The colon, includi ng the cecum, is located in the left abdomen, with small bowel loops in the right abdomen. There are no abnormally dilated or thickened l oops of small bowel or colon. There is asymmetric enlargement of the r ight iliac is muscle, with an ill-defined intramuscular lesion demonst rating some increased attenuation measuring approximately 3 x 2.5 cm on series 2, image 64. There is a second smaller area of hemorr grant in the right iliac is muscle on image 72, which may be in cont iguity with the more superiorly located hemorrhage. On pereira l imaging, this entire area measures approximately 5 cm. Additionall y, there is fluid in the right lower quadrant, which appears retroperit rose, and demonstrates mildly elevated Hounsfield units of 29. This ca n be best seen on coronal series 4, image 14. There are no concerning bone findings. T he L5 vertebral body is narrower than adjacent lumbar vertebral bodies, however no acute fracture is suspected. Procedure Note Elina Castellanos MD - 08/30/2018Forma tting of this note might be different from the original. EXAMINATION: CT ABDOMEN PELVIS W CONTRAS T, 08/30/2018 2:22 PM TECHNIQUE: CT images from the lung bases through the symphysis pubis were obtained with contrast. CONTRAST DO SE: 100 ml Isovue 300 COMPARISON: CT 01/04/2016, radiograph 04/24/2018 HISTORY: CT scans 08/21, 08/25 @ [facility]SH expand ing hematoma w abdominal pain, history of being on warfarin FINDINGS: Partially seen postsurgical changes of c ardiac surgery. Minimal amount of right middle lobe scarring or atelect asis. The liver is diffusely decreased in atte nuation. There are several small enhancing lesions seen scattered t hroughout the liver. For example, in the periphery of the left he patic lobe on series 2, image 27 there is a 6 mm lesion, and there are at least 3 lesions in the periphery of the right hepatic lobe, lar gest measuring 7 mm on image 24. Findings suggesting polysplenia, wit h at least 3 separate appearing spleen in the left upper quadr ant. The pancreas is normal in appearance. Both adrenal glands and kidn eys are normal. There is malrotation. The colon, includi ng the cecum, is located in the left abdomen, with small bowel loops in the right abdomen. There are no abnormally dilated or thickened l oops of small bowel or colon. There is asymmetric enlargement of the r ight iliac is muscle, with an ill-defined intramuscular lesion demonst rating some increased attenuation measuring approximately 3 x 2.5 cm on series 2, image 64. There is a second smaller area of hemorr grant in the right iliac is muscle on image 72, which may be in cont iguity with the more superiorly located hemorrhage. On pereira l imaging, this entire area measures approximately 5 cm. Additionall y, there is fluid in the right lower quadrant, which appears retroperit rose, and demonstrates mildly elevated Hounsfield units of 29. This ca n be best seen on coronal series 4, image 14. There are no concerning bone findings. T he L5 vertebral body is narrower than adjacent lumbar vertebral bodies, however no acute fracture is suspected. IMPRESSION: 1. 5 cm right iliacus intramuscular ward carson. 2. Small amount of retroperitoneal blood in the right lower quadrant. 3. Decreased hepatic attenuation, most c ommonly seen in the setting of hepatic steatosis. Several enhancing les ions scattered throughout the liver favor small venous malformations ( liver hemangiomas). Comparison with prior studies to confirm stability would be useful. 4. Polysplenia. [Urgent Result: Hematomas] Finding was identified on 08/30/2018 2:[address] Lancaster was contacted by Dr. Ontiveros at 08/30/2018 2:31 PM and verbalized understanding of the urgent f inding. I have personally reviewed the examinati on and initial interpretation and I agree with the findings. ELINA CASTELLANOS MD Armida Lancaster MD IMG CT ORDERABLES ISTAT gases elec ica gluc eliot POCT (08/30/2018 1:33 PM CDT) P athologist Signature Ph Venous 7.38 7.32 - 08/30/2018 POINT OF CARE 7.43 pH 1:41 PM CDT TEST, HANDHELD METER PCO2 Venous 45 40 - 50 mm 08/30/2018 POINT OF CARE Hg 1:41 PM CDT TEST, HANDHELD METER PO2 Venous 28 25 - 47 mm 08/30/2018 POINT OF CARE Hg 1:41 PM CDT TEST, HANDHELD METER Bicarbonate 26 21 - 28 08/30/2018 POINT OF CARE Venous mmol/L 1:41 PM CDT TEST, HANDHELD METER O2 Sat Venous 51 % 08/30/2018 POINT OF CARE 1:41 PM CDT TEST, HANDHELD METER Sodium 142 133 - 144 08/30/2018 POINT OF CARE mmol/L 1:41 PM CDT TEST, HANDHELD METER Potassium 3.8 3.4 - 5.3 08/30/2018 POINT OF CARE mmol/L 1:41 PM CDT TEST, HANDHELD METER Glucose 92 70 - 99 08/30/2018 POINT OF CARE mg/dL 1:41 PM CDT TEST, HANDHELD METER Calcium Ionized 4.9 4.4 - 5.2 08/30/2018 POINT OF CARE mg/dL 1:41 PM CDT TEST, HANDHELD METER Hemoglobin 15.0 13.3 - 08/30/2018 POINT OF CARE 17.7 g/dL 1:41 PM CDT TEST, HANDHELD METER Hematocrit - 44 40.0 - 08/30/2018 POINT OF CARE POCT 53.0 %PCV 1:41 PM CDT TEST, HANDHELD METER Specimen Anatomical Collection Method Collection Time Receive d Time (Source) Location / / Volume Laterality 08/30/2018 1:33 PM 9 1:41 CDT PM CDT Guero Wynn MD [facility] POCT Performing Organization Address City/State/ZIP Code Phon e Number FV POINT OF CARE TEST, HANDHELD METER POINT OF CARE TEST, HANDHELD METER Creatinine POCT (08/30/2018 1:33 PM CDT) P athologist Signature Creatinine 0.9 0.50 - 08/30/2018 POINT OF CARE 1.00 mg/dL 1:39 PM CDT TEST, HANDHELD METER GFR Estimate >90 >60 08/30/2018 POINT OF CARE mL/min/{1. 1:39 PM CDT TEST, HANDHELD 73_m2} METER GFR Estimate If >90 >60 08/30/2018 POINT OF CARE Black mL/min/{1. 1:39 PM CDT TEST, HANDHELD 73_m2} METER Specimen Anatomical Collection Method Collection Time Receive d Time (Source) Location / / Volume Laterality 08/30/2018 1:33 PM 9 1:39 CDT PM CDT Guero Wynn MD LAB - [facility] POCT Performing Organization Address City/State/ZIP Code Phon e Number FV POINT OF CARE TEST, HANDHELD METER POINT OF CARE TEST, HANDHELD METER (ABNORMAL) INR (08/30/2018 1:33 PM CDT) P athologist Signature INR 1.38 (H) 0.86 - 1.14 08/30/2018 [facility] 2:02 PM CDT [facility] Specimen Anatomical Collection Method Collection Time Receive d Time (Source) Location / / Volume Laterality Blood specimen 08/30/2018 1:33 PM 019 1:45 (specimen) CDT PM CDT Armida Lancaster MD LAB - BLOOD ORDERABLES Performing Organization Address City/[facility]/ZIP Code Phon e Number [address] [address] [facility] (ABNORMAL) Partial thromboplastin time (08/30/2018 1:33 PM CDT) P athologist Signature PTT 43 (H) 22 - 37 sec 08/30/2018 [facility] 2:02 PM CDT [facility] Specimen Anatomical Collection Method Collection Time Receive d Time (Source) Location / / Volume Laterality Blood specimen 08/30/2018 1:33 PM 019 1:45 (specimen) CDT PM CDT Armida Lancaster MD LAB - BLOOD ORDERABLES Performing Organization Address City/[facility]/ZIP [facility] Phon e Number [address] [phone] [facility] ABO/Rh type and screen (08/30/2018 1:33 PM CDT) Patholo gist Method Time Signature ABO AB 08/30/2018 [facility] 2:12 PM CDT [facility] RH(D) Pos [facility] Antibody Neg 08/30/2018 [facility] Screen 2:40 PM CDT [facility] Test Valid [facility] 08/30/2018 [facility] 1:59 PM CDT [facility] [facility] Specimen 09/02/2018 08/30/2018 [facility] Expires 1:59 PM CDT [facility] Specimen Anatomical Collection Method Collection Time Receive d Time (Source) Location / / Volume Laterality Blood specimen 08/30/2018 1:33 PM 019 1:45 (specimen) CDT PM CDT Armida Lancaster MD LAB - BLOOD BANK TEST ORDER Performing Organization Address City/[facility]/ZIP Code Phon e Number [address] [address] [facility] Fibrinogen activity (08/30/2018 1:33 PM CDT) athologist Signature Fibrinogen 414 200 - 420 08/30/2018 [facility] mg/dL 2:02 PM CDT [facility] Specimen Anatomical Collection Method Collection Time Receive d Time (Source) Location / / Volume Laterality Blood specimen 08/30/2018 1:33 PM 019 1:45 (specimen) CDT PM CDT Armida Lancaster MD LAB - BLOOD ORDERABLES Performing Organization Address City/[facility]/ZIP Code Phon e Number [address] [phone] [facility] Lipase (08/30/2018 1:33 PM CDT) athologist Signature Lipase 128 0 - 194 U/L 08/30/2018 [facility] 2:11 PM CDT [facility] Specimen Anatomical Collection Method Collection Time Receive d Time (Source) Location / / Volume Laterality Blood specimen 08/30/2018 1:33 PM 019 1:45 (specimen) CDT PM CDT Armida Lancaster MD LAB - BLOOD ORDERABLES Performing Organization Address City/[facility]/ZIP Code Phon e Number [address] [phone] [facility] (ABNORMAL) Comprehensive metabolic panel (08/30/2018 1:33 PM CDT) athologist Signature Sodium 140 133 - 144 08/30/2018 [facility] mmol/L 2:02 PM CDT [facility] Potassium 3.8 3.4 - 5.3 08/30/2018 [facility] mmol/L 2:02 PM CDT [facility] Chloride 106 98 - 110 08/30/2018 [facility] mmol/L 2:02 PM [facility] Carbon Dioxide 26 20 - 32 08/30/2018 [facility] mmol/L 2:08 PM [facility] Anion Gap 8 3 - 14 08/30/2018 [facility] mmol/L 2:08 PM [facility] Glucose 88 70 - 99 08/30/2018 [facility] mg/dL 2:08 PM [facility] Urea Nitrogen 19 7 - 21 08/30/2018 [facility] mg/dL 2:08 PM [facility] Creatinine 0.82 0.50 - 08/30/2018 [facility] 1.00 mg/dL 2:08 PM [facility] GFR Estimate >90 >60 08/30/2018 [facility] mL/min/{1. 2:08 PM [facility] 73_m2} [facility] Comment: Non GFR Calc Starting 06/03/2018, serum creatinine ba sed estimated GFR (eGFR) will be calculated using the Chronic Kidney Dise [facility] Epidemiology Collaboration (CKD-EPI) equation. GFR Estimate If >90 >60 mL/min/{1.73_m2} 08/30/2018 2: 08 PM [facility] Black [facility] Comment: GFR Calc Starting 06/03/2018, serum creatinine ba sed estimated GFR (eGFR) will be calculated using the Chronic Kidney Dise [facility] Epidemiology Collaboration (CKD-EPI) equation. Calcium 9.0 (L) 9.1 - 10.3 08/30/2018 2:08 PM [facility] mg/dL [facility] Bilirubin Total 1.8 (H) 0.2 - 1.3 08/30/2018 2:11 PM [facility] [place] mg/dL [facility] Albumin 4.1 3.4 - 5.0 g/dL 08/30/2018 2:11 PM [facility] Protein Total 7.9 6.8 - 8.8 g/dL 08/30/2018 2:11 PM [facility] Alkaline Phosphatase 97 65 - 260 U/L 08/30/2018 2:11 PM [facility] ALT 25 0 - 50 U/L 08/30/2018 2:11 PM [facility] AST 22 0 - 35 U/L 08/30/2018 2:11 PM [facility] Specimen Anatomical Collection Method Collection Time Receive d Time (Source) Location / / Volume Laterality Blood specimen 08/30/2018 1:33 PM 019 1:45 (specimen) CDT PM CDT Armida Lancaster MD LAB - BLOOD ORDERABLES Performing Organization Address City/State/ZIP Code Phon e Number [facility] [address] [place] [address] [facility] CBC with platelets differential (08/30/2018 1:33 PM CDT) [facility] gist Method Time Signature WBC 5.9 4.0 - 08/30/2018 [facility] 11.0 1:55 PM CDT [facility] 10e9/L [facility] RBC Count 5.04 4.4 - 5.9 08/30/2018 [facility] 10e12/L 1:55 PM T [facility] Hemoglobin 14.5 13.3 - 08/30/2018 [facility] 17.7 g/dL 1:55 PM CDT [facility] Hematocrit 44.0 40.0 - 08/30/2018 [facility] 53.0 % 1:55 PM CDT [facility] MCV 87 78 - 100 08/30/2018 [facility] fl 1:55 PM CDT [facility] MCH 28.8 26.5 - 08/30/2018 [facility] 33.0 pg 1:55 PM T [facility] MCHC 33.0 31.5 - 08/30/2018 [facility] 36.5 g/dL 1:55 PM CDT [facility] RDW 13.2 10.0 - 08/30/2018 [facility] 15.0 % 1:55 PM T [facility] Platelet Count 188 150 - 450 08/30/2018 [facility] 10e9/L 1:55 PM T [facility] Diff Method Automated 08/30/2018 [facility] Method 1:55 PM T [facility] % Neutrophils 74.1 % 08/30/2018 [facility] 1:55 PM CDT [facility] % Lymphocytes 16.8 % 08/30/2018 [facility] 1:55 PM CDT [facility] % Monocytes 7.4 % 08/30/2018 [facility] 1:55 PM CDT [facility] % Eosinophils 1.2 % 08/30/2018 [facility] 1:55 PM CDT [facility] % Basophils 0.3 % 08/30/2018 [facility] 1:55 PM CDT [facility] % Immature 0.2 % 08/30/2018 [facility] Granulocytes 1:55 PM CDT [facility] Nucleated RBCs 0 0 /100 08/30/2018 [facility] 1:55 PM CDT [facility] Absolute 4.4 1.6 - 8.3 08/30/2018 [facility] Neutrophil 10e9/L 1:55 PM CDT [facility] Absolute 1.0 0.8 - 5.3 08/30/2018 [facility] Lymphocytes 10e9/L 1:55 PM CDT [facility] Absolute 0.4 0.0 - 1.3 08/30/2018 [facility] Monocytes 10e9/L 1:55 PM CDT [facility] Absolute 0.1 0.0 - 0.7 08/30/2018 [facility] Eosinophils 10e9/L 1:55 PM CDT [facility] Absolute 0.0 0.0 - 0.2 08/30/2018 [facility] Basophils 10e9/L 1:55 PM CDT [facility] Abs Immature 0.0 0 - 0.4 08/30/2018 [facility] Granulocytes 10e9/L 1:55 PM CDT [facility] Absolute 0.0 08/30/2018 [facility] Nucleated RBC 1:55 PM CDT [facility] Specimen Anatomical Collection Method Collection Time Receive d Time (Source) Location / / Volume Laterality Blood specimen 08/30/2018 1:33 PM 019 1:45 (specimen) CDT PM CDT Armida Lancaster MD LAB - BLOOD ORDERABLES Performing Organization Address City/State/ZIP Code Phon e Number [facility] [address] [place] [address] [facility] (ABNORMAL) ISTAT INR POCT (08/30/2018 1:32 PM CDT) P athologist Signature ISTAT INR 1.5 (H) 0.86 - 1.14 08/30/2018 POINT OF CARE 1:40 PM CDT TEST, HANDHELD METER Comment: This test is intended for monitoring Cou madin therapy. ??Results are not accurate in patients with prolonged INR due to factor deficiency. Specimen Anatomical Collection Method Collection Time Receive d Time (Source) Location / / Volume Laterality 08/30/2018 1:32 PM 9 1:40 CDT PM CDT Guero Wynn MD [facility] POCT Performing Organization Address City/State/ZIP Code Phon e Number FV POINT OF CARE TEST, HANDHELD METER POINT OF CARE TEST, HANDHELD METER documented in this encounter Visit Diagnoses Diagnosis Drug-induced constipation - Primary Other constipation Psoas hematoma, left, secondary to antic oagulant therapy, subsequent encounter Hematoma of right psoas region to antico agulant therapy, initial encounter 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 Long-term (current) use of anticoagulant s Psoas hematoma, right, secondary to anti coagulant therapy Contusion of unspecified site documented in this encounter Administered Medications Inactive Administered Medications - up to 3 most recent administrations Medication Order MAR Action Action Date Dose Rate Site 0.9% sodium chloride BOLUS New Bag 09/01/2018 1:26 PM CDT 1,000 mLs Intravenous, 1,000 mL, ONCE, On Sat09/01/18 at 1300, For 1 dose 0.9% sodium chloride BOLUS New Bag 09/02/2018 8:04 PM CDT 500 mLs Intravenous, 500 mL, ONCE, On Tu09/02/18 at 1915, For 1 dose acetaminophen (TYLENOL) tablet 500 mg Given 09/02/2018 9:41 AM CDT 500 mg 500 mg, Oral, EVERY 4 HOURS, First dose (after last modification) on 08/31/18 at 2330, Fever (temp greater than 38.0C, 100.4F). If pain is not improved after 15 minutes, consider giving ibuprofen or other non-acetaminophen containing analgesic (if ordered) or call provider. Maximum acetaminophen dose from all sources = 75 mg/kg/day not to exceed 4 gram Given 09/02/2018 6:18 AM CDT 500 mg Given 09/02/2018 12:46 AM CDT 500 mg acetaminophen (TYLENOL) tablet 500 mg Given 09/05/2018 4:33 PM CDT 500 mg 500 mg, Oral, EVERY 4 HOURS, First dose (after last modification) on Sat09/02/18 at 1945, Fever (temp greater than 38.0C, 100.4F). If pain is not improved after 15 minutes, consider giving ibuprofen or other non-acetaminophen containing analgesic (if ordered) or call provider. Maximum acetaminophen dose from all sources = 75 mg/kg/day not to exceed 4 gram Given 09/05/2018 12:00 PM CDT 500 mg Given 09/05/2018 8:58 AM CDT 500 mg acetaminophen (TYLENOL) tablet 650 mg Given 08/31/2018 4:39 PM CDT 650 mg 650 mg, Oral, EVERY 6 HOURS, First dose on Sat08/30/18 at 1800, Fever (temp greater than 38.0C, 100.4F). If pain is not improved after 15 minutes, consider giving ibuprofen or other non-acetaminophen containing analgesic (if ordered) or call provider. Maximum acetaminophen dose from all sources = 75 mg/kg/day not to exceed 4 grams/day. Given 08/31/2018 10:50 AM CDT 650 mg Given 08/31/2018 4:54 AM CDT 650 mg acetaminophen (TYLENOL) tablet 650 mg Given 09/02/2018 3:43 PM CDT 650 mg 650 mg, Oral, EVERY 6 HOURS, First dose (after last modification) on Sat09/02/18 at 1545, Fever (temp greater than 38.0C, 100.4F). If pain is not improved after 15 minutes, consider giving ibuprofen or other non-acetaminophen containing analgesic (if ordered) or call provider. Maximum acetaminophen dose from all sources = 75 mg/kg/day not to exceed 4 grams/day. dextrose 5% and 0.9% NaCl Rate/Dose Verify 08/30/2018 3:18 PM CDT 100 mL/hr infusion at 100 mL/hr, Intravenous, CONTINUOUS, Starting on Sat08/30/18 at 1326, Until Sat08/30/18 at 2147 New Bag 08/30/2018 1:56 PM CDT 100 mL/hr diazepam (VALIUM) half-tab 1 mg Given 09/01/2018 9:19 PM CDT 1 mg 1 mg, Oral, EVERY 6 HOURS PRN, other, muscle spasm, Starting on 09/01/18 at 1242 Given 09/01/2018 1:37 PM CDT 1 mg diazepam (VALIUM) solution 0.5-1 mg Given 09/04/2018 6:39 PM CDT 0.5 mg 0.5-1 mg, Oral, EVERY 6 HOURS PRN, muscle spasms, Starting on Tu09/02/18 at 1507 Given 09/03/2018 10:09 PM CDT 0.5 mg Given 09/02/2018 11:25 PM CDT 0.5 mg digoxin (LANOXIN) tablet 250 mcg Given 09/05/2018 8:59 AM CDT 250 mcg 250 mcg, Oral, DAILY, First dose on Sat08/31/18 at 0800 Given 09/04/2018 8:07 AM CDT 250 mcg Given 09/03/2018 8:13 AM CDT 250 mcg emollient (VANICREAM) cream Topical, EVERY 6 HOURS PRN, other, itchiness, Starting on Suze 09/04/18 at 1214, Apply to skin furosemide (LASIX) half-tab 10 mg Given 09/05/2018 8:58 AM CDT 10 mg 10 mg, Oral, DAILY, First dose on 08/31/18 at 0800 Given 09/04/2018 8:07 AM CDT 10 mg Given 09/03/2018 8:13 AM CDT 10 mg gabapentin (NEURONTIN) capsule 300 mg Given 08/31/2018 5:25 PM CDT 300 mg 300 mg, Oral, ONCE, On 08/31/18 at 1700, For 1 dose gabapentin (NEURONTIN) capsule 300 mg Given 09/01/2018 7:40 AM CDT 300 mg 300 mg, Oral, 2 TIMES DAILY, First dose on Sat09/01/18 at 0800, For 2 doses iopamidol (ISOVUE-300) IV solution 61% 100 Given 08/30/2018 2:14 PM CDT 100 mLs mL 100 mL, Intravenous, ONCE, On 08/30/18 at 1357, For 1 dose, Supplied and administered by Radiology. iopamidol (ISOVUE-300) IV solution 61% 1 00 mL Given 09/05/2018 3:02 PM CDT 98 mLs 100 mL, Intravenous, ONCE, On Sat09/05/18 at 1445, For 1 dose, Supplied and administered by Radiology. metoprolol succinate ER (TOPROL-XL) 24 hr Given 09/05/2018 8:58 AM CDT 25 mg tablet 25 mg 25 mg, Oral, DAILY, First dose on Sat08/31/18 at 0800, DO NOT CRUSH. Tablet may be split in half along score line. Given 09/04/2018 8:06 AM CDT 25 mg Given 09/03/2018 8:13 AM CDT 25 mg montelukast (SINGULAIR) tablet 10 mg Given 09/04/2018 8:18 PM CDT 10 mg 10 mg, Oral, AT BEDTIME, First dose on Sat08/31/18 at 2000 Given 09/03/2018 8:15 PM CDT 10 mg Given 09/02/2018 8:01 PM CDT 10 mg morphine (MS CONTIN) 12 hr tablet 30 mg Given 09/05/2018 8:59 AM CDT 30 mg 30 mg, Oral, EVERY 12 HOURS SCHEDULED, First dose on Sat09/03/18 at 2000, DO NOT CRUSH. Given 09/04/2018 7:39 PM CDT 30 mg Given 09/04/2018 8:07 AM CDT 30 mg morphine (MSIR) IR half-tab 15 mg Given 09/03/2018 3:57 PM CDT 15 mg 15 mg, Oral, EVERY 6 HOURS, First dose (after last modification) on Sat09/02/18 at 1600, For 5 doses Given 09/03/2018 10:01 AM CDT 15 mg Given 09/03/2018 3:49 AM CDT 15 mg morphine (MSIR) IR half-tab 7.5 mg Given 09/02/2018 9:41 AM CDT 7.5 mg 7.5 mg, Oral, EVERY 4 HOURS, First dose on Sat09/01/18 at 1245 Given 09/02/2018 6:18 AM CDT 7.5 mg Given 09/02/2018 12:46 AM CDT 7.5 mg morphine (MSIR) IR half-tab 7.5 mg Given 09/03/2018 7:02 AM CDT 7.5 mg 7.5 mg, Oral, EVERY 4 HOURS PRN, moderate to severe pain, breakthrough pain, Starting on Sat09/01/18 at 1241 Given 09/02/2018 6:33 PM CDT 7.5 mg Given 09/02/2018 11:42 AM CDT 7.5 mg morphine (PF) injection 2-4 mg Given 08/31/2018 7:41 AM CDT 4 mg 2-4 mg, Intravenous, EVERY 4 HOURS PRN, moderate to severe pain, Starting on 08/30/18 at 1757, For ordered IV doses 0.1-15 mg give IV Push undiluted over 4-5 minutes. Given 08/31/2018 3:27 AM CDT 2 mg Given 08/31/2018 3:10 AM CDT 2 mg morphine (PF) injection 2-4 mg Given 09/01/2018 6:35 AM CDT 4 mg 2-4 mg, Intravenous, EVERY 4 HOURS PRN, moderate to severe pain, breakthrough pain, Starting on 08/31/18 at 1815, For ordered IV doses 0.1-15 mg give IV Push undiluted over 4-5 minutes. Given 08/31/2018 7:51 PM CDT 2 mg morphine (PF) injection 4 mg Given 08/30/2018 1:48 PM CDT 4 mg 4 mg, Intravenous, ONCE, On 08/30/18 at 1321, For 1 dose, use for Severe Pain ONLY For ordered IV doses 0.1-15 mg give IV Push undiluted over 4-5 minutes. morphine (PF) injection 4 mg Given 08/30/2018 4:00 PM CDT 4 mg 4 mg, Intravenous, ONCE, On 08/30/18 at 1557, For 1 dose, use for Severe Pain ONLY For ordered IV doses 0.1-15 mg give IV Push undiluted over 4-5 minutes. naloxone (NARCAN) injection 0.1-0.4 mg 0.1-0.4 mg, Intravenous, EVERY 2 MIN PRN , opioid reversal, Starting on 08/30/18 at 1759, For respiratory rate LESS than or EQUAL to 8. Partial reversal dose: 0.1 mg titrated q 2 minutes for Analgesia Si de Effects Monitoring Sedation Level of 3 (frequently drowsy, arousable, drifts to sleep during conversation).Full reversal dose: 0.4 mg bolus for Analgesia Side Effects Monitori ng Sedation Level of 4 (somnolent, minimal or no response to st imulation). For ordered IV doses 0.1-2mg give IVP. Give each 0.4mg over 15 second s in emergency situations. For non-emergent situations further dilute in 9mL of NS to facilitate t itration of response. omeprazole (priLOSEC) CR capsule 20 mg Given 09/05/2018 8:58 AM CDT 20 mg 20 mg, Oral, EVERY MORNING BEFORE BREAKFAST, First dose on 08/31/18 at 0730 Given 09/04/2018 8:06 AM CDT 20 mg Given 09/03/2018 8:13 AM CDT 20 mg ondansetron (ZOFRAN-ODT) ODT tab 4 mg Given 09/01/2018 9:19 PM CDT 4 mg 4 mg, Oral, EVERY 6 HOURS PRN, nausea, vomiting, Starting on 09/01/18 at 0707, With dry hands, peel back foil backing and gently remove tablet; do not push oral disintegrating tablet through foil backing; administer immediately on tongue and oral disintegrating tablet dissolves in seconds; then swallow with saliva; liquid not required. Given 09/01/2018 7:35 AM CDT 4 mg oxyCODONE (ROXICODONE) tablet 10 mg Given 08/31/2018 3:30 PM CDT 10 mg 10 mg, Oral, EVERY 4 HOURS PRN, moderate to severe pain, Starting on 08/31/18 at 1312 oxyCODONE (ROXICODONE) tablet 10 mg Given 09/01/2018 7:35 AM CDT 10 mg 10 mg, Oral, EVERY 4 HOURS, First dose (after last modification) on 08/31/18 at 1930 Given 09/01/2018 3:30 AM CDT 10 mg Given 08/31/2018 11:24 PM CDT 10 mg polyethylene glycol (MIRALAX/GLYCOLAX) Packet Given 09/03/19 8:18 AM CDT 17 g 17 g 17 g, Oral, DAILY, First dose on 08/31/18 at 1315, 1 Packet = 17 grams. Mixed prescribed dose in 8 ounces of water. Follow with 8 oz. of water. Given 09/01/2018 7:40 AM CDT 17 g Given 08/31/2018 1:41 PM CDT 17 g polyethylene glycol (MIRALAX/GLYCOLAX) Packet Given 09/04/19 8:13 AM CDT 17 g 17 g 17 g, Oral, 3 TIMES DAILY, First dose (after last modification) on Sat09/03/18 at 0800, 1 Packet = 17 grams. Mixed prescribed dose in 8 ounces of water. Follow with 8 oz. of water. polyethylene glycol (MIRALAX/GLYCOLAX) Packet Given 09/03/19 8:00 PM CDT 17 g 17 g 17 g, Oral, ONCE, On Sat09/02/18 at 1915, For 1 dose, 1 Packet = 17 grams. Mixed prescribed dose in 8 ounces of water. Follow with 8 oz. of water. polyethylene glycol (MIRALAX/GLYCOLAX) Packet Given 12:23 PM CDT 17 g 17 g 17 g, Oral, EVERY 2 HOURS PRN, constipation, Starting on Sat09/03/18 at 1130, Until passes stool. 1 Packet = 17 grams. Mixed prescribed dose in 8 ounces of water. Follow with 8 oz. of water. Given 09/04/2018 8:06 AM CDT 17 g Given 09/03/2018 8:15 PM CDT 17 g sennosides (SENOKOT) tablet 8.6 mg Given 09/02/2018 11:41 AM CDT 8.6 mg 8.6 mg, Oral, DAILY, First dose on Sat09/02/18 at 1045 sennosides (SENOKOT) tablet 8.6 mg Given 09/05/2018 8:58 AM CDT 8.6 mg 8.6 mg, Oral, 2 TIMES DAILY, First dose (after last modification) on Sat09/02/18 at 2000 Given 09/04/2018 8:18 PM CDT 8.6 mg Given 09/04/2018 8:06 AM CDT 8.6 mg sildenafil (REVATIO) tablet 20 mg Given 09/05/2018 2:15 PM CDT 20 mg 20 mg, Oral, 3 TIMES DAILY, First dose on Sat08/30/18 at 2000, If new prescription for the treatment of PH, insurance prior authorization is required before discharge. Given 09/05/2018 8:58 AM CDT 20 mg Given 09/04/2018 8:18 PM CDT 20 mg sodium chloride (PF) 0.9% PF flush 0.2-5 mL Given 09/05/2018 1:41 PM CDT 5 mLs 0.2-5 mL, Intracatheter, EVERY 5 MIN PRN, line flush, post meds or blood draw, Starting on 08/30/18 at 1312, for peripheral IV line flush post IV meds. 0.2-3 mL post IV meds. 0.2-5 mL post blood draw. Volume is dependent on catheter size. sodium chloride (PF) 0.9% PF flush 3 mL Given 09/04/2018 12:09 PM CDT 3 mLs 3 mL, Intracatheter, EVERY 8 HOURS, First dose on 08/30/18 at 1321, And Q1H PRN, to lock peripheral IV dormant line. Given by Other 09/04/2018 8:07 AM CDT 3 mLs Given 09/03/2018 8:16 PM CDT 3 mLs sodium chloride 0.9 % bag 500mL for CT scan Given 08/30/2018 2:15 PM CDT 65 mLs flush use Intravenous, 500 mL, ONCE, On Sat08/30/18 at 1357, For 1 dose, This entry is for use by Radiology to intermittently used as a flush in patients receiving a CT scan. sodium chloride 0.9 % bag 500mL for CT scan Given 09/05/2018 3:02 PM CDT 65 mLs flush use Intravenous, 500 mL, ONCE, On Sat09/05/18 at 1445, For 1 dose, This entry is for use by Radiology to intermittently used as a flush in patients receiving a CT scan. sodium chloride 0.9% infusion Rate/Dose Change 08/30/2018 10:05 PM CDT 10 mL/hr at 0-10 mL/hr, Intravenous, CONTINUOUS, Saline lock, Starting on 08/30/18 at 1800, Until Sat09/05/18 at 1852 New Bag 08/30/2018 6:40 PM CDT 75 mL/hr spironolactone (ALDACTONE) half-tab 25 m g Given 09/05/2018 8:58 AM CDT 25 mg 25 mg, Oral, DAILY, First dose on 08/31/18 at 0800 Given 09/04/2018 8:06 AM CDT 25 mg Given 09/03/2018 8:13 AM CDT 25 mg documented in this encounter Active and Recently Administered Medications Times are shown in CDT. Scheduled Medication Order 09/03/2018 09/04/2018 09/05/2018 acetaminophen (TYLENOL) tablet 500 mg 0010 (Given - Pr ovider: Dulce Oniell RN)0349 (Given - Provider: Dulce Oneill RN)0813 (Given - Provider: Ruba Burton RN)1155 (Given - Provider: Ruba Burton RN)1557 (Given - Provider: Ruba Burton RN) 0428 (Given - Provider: Dulce little RN)0806 (Given - Provider: Ruba Burton RN)1208 (Given - Provider: Ruba Burton RN)1606 (Given - Provider: Ruba Burton RN)2018 (Given - Provider: Jennifer Dia RN) 0011 (Given - Provider: Tylor Stern RN)0403 (Given - Provider: Tylor Stern RN)0858 (Given - Provider: Delicia Ontiveros, BRIELLE)1200 (Given - Provider: Delicia Ontiveros RN)1633 (Given - Provider: Sigrid Sales RN) 500 mg, Oral, EVERY 4 HOURS, First dose on Sat09/02/18 at 1945, Fever (temp greater than 38.0C, 100.4F). If pain is not improved after 15 minutes, consider giving ibuprofen or other non-acetaminophen co 2014 (Given - Provider: Tylor Stern RN)235 (Given - Provider: Dulce Oneill RN) ntaining analgesic (if ordered) or call provider. Maximum acetaminophen dose from all sources = 75 mg/kg/day not to exceed 4 gram digoxin (LANOXIN) tablet 250 mcg 0813 (Given - Provider: Cha Burton RN) 0807 (Given - Provider: Ruba Burton RN) 0859 (Given - Provider: Delicia Ontiveros RN) 250 mcg, Oral, DAILY, First dose on 08/31/18 at 0800 furosemide (LASIX) half-tab 10 mg 0813 (Given - Provider: Pablito Burton RN) 0807 (Given - Provider: Ruba Burton RN) 0858 (Given - Provider: Delicia Ontiveros RN) 10 mg, Oral, DAILY, First dose on 08/31/18 at 0800 iopamidol (ISOVUE-300) IV solution 61% 100 mL (COMPLETED) 1502 (Given - Provider: Spenser Harris) 100 mL, Intravenous, ONCE, On Sat 9 at 1445, For 1 dose, Supplied and administered by Radiology. metoprolol succinate ER (TOPROL-XL) 24 hr tablet 25 mg 08 (Given - Provider: Ruba Burton RN) 08 (Given - Provider: Ruba Burton RN) 0858 (Given - Provider: Delicia Ontiveros, BRIELLE) 25 mg, Oral, DAILY, First dose on Sat at 0800, DO NOT CRUSH. Tablet may be split in half along score line. montelukast (SINGULAIR) tablet 10 mg 2014 (Given - Pro vider: Tylor Stern RN) 2017 (Given - Provider: Jennifer Dia RN) 10 mg, Oral, AT BEDTIME, First dose on Sat08/31/18 at 2000 morphine (MS CONTIN) 12 hr tablet 30 mg 2014 (Given - Provider: Tylor Stern RN) 806 (Given - Provider: Camille Figueroa)1938 (Given - Provider: Tylor Stern RN) 0859 (Given - Provider: Delicia Ontiveros RN) 30 mg, Oral, EVERY 12 HOURS SCHEDULED, F irst dose on Sat09/03/18 at 2000, DO NOT CRUSH. morphine (MSIR) IR half-tab 15 mg (COMPLETED) 0349 (Gi eliot - Provider: Dulce Oneill RN)1001 (Given - Provider: Ruba Burton RN)1557 (Given - Provider: Ruba Burton RN) 15 mg, Oral, EVERY 6 HOURS, First dose on Sat09/02/18 at 1600, F or 5 doses omeprazole (priLOSEC) CR capsule 20 mg 08 (Given - P rovider: Ruba Burton RN) 08 (Given - Provider: Ruba Burton RN) 0858 (Given - Provider: Delicia Ontiveros RN) 20 mg, Oral, EVERY MORNING BEFORE BREAKFAST, First dose on S 08/31/18 at 0730 polyethylene glycol (MIRALAX/GLYCOLAX) Packet 17 g (CA NCELED) 0813 (Given - Provider: Ruba Burton RN) 17 g, Oral, 3 TIMES DAILY, First dose on Sat09/03/18 at 0800, 1 Packet = 17 grams. Mixed prescribed dose in 8 ounces of water. Follow with 8 oz. of water. sennosides (SENOKOT) tablet 8.6 mg 0812 (Given - Provi trena: Ruba Burton RN)2014 (Given - Provider: Tylor Stern RN) 0806 (Given - Provider: Ruba Burton RN)2017 (Given - Provider: Jennifer Dia RN) 0858 (Given - Provider: Delicia Ontiveros RN) 8.6 mg, Oral, 2 TIMES DAILY, First dose on Sat09/02/18 at 2000 sildenafil (REVATIO) tablet 20 mg 0812 (Given - Provid er: Ruba Burton RN)1414 (Given - Provider: Ruba Burton RN)2014 (Given - Provider: Tylor Stern RN) 0806 (Given - Provider: Camille Figueroa N)1435 (Given - Provider: Ruba Burton RN)2017 (Given - Provider: Jennifer Dia RN) 0858 (Given - Provider: Delicia Ontiveros, BRIELLE)141 (Given - Provider: Delicia Ontiveros RN) 20 mg, Oral, 3 TIMES DAILY, First dose o n 08/30/18 at 2000, If new prescription for the treatment of PH, insurance prior authorization is required before discharge. sodium chloride (PF) 0.9% PF flush 3 mL 0629 (Not Give n - Provider: Dulce Oneill RN - Reason: Other)1414 (Given - Provider: Ruba Burton RN)2015 (Given - Provider: Tylor Stern RN) 0807 (Given by Other - Provider: Ruba Burton RN)120 (Given - Provider: Ruba Burton RN)2022 (Not Given - Provider: Jennifer Dia RN - Reason: Loss of IV access) 0734 (Not Given - Provider: Delicia Ontiveros RN - Reason: Loss of IV access)1133 (Not Given - Provider: Delicia Ontiveros RN - Reason: Loss of IV access) 3 mL, Intracatheter, EVERY 8 HOURS, Firs t dose on 08/30/18 at 1321, And Q1H PRN, to lock peripheral IV dormant line. sodium chloride 0.9 % bag 500mL for CT scan flush use (COMPLETED ) 1502 (Given - Provider: Spenser Harris) Intravenous, 500 mL, ONCE, On Sat 9 at 1445, For 1 dose, This entry is for use by Radiology to intermittently used as a flush in patients receiving a CT scan. spironolactone (ALDACTONE) half-tab 25 mg 0813 (Given - Provider: Ruba Burton RN) 0806 (Given - Provider: Ruba Burton RN) 0858 (Given - Provider: Delicia Ontiveros RN) 25 mg, Oral, DAILY, First dose on Sat08/31/18 at 0800 Continuous Medication Order 09/03/2018 09/04/2018 09/05/2018 sodium chloride 0.9% infusion at 0-10 mL/hr, Intravenous, CONTINUOUS, Saline lock, Starting 08/30/18 at 1800, Until Sat09/05/18 at 1852 PRN Medication Order 09/03/2018 09/04/2018 09/05/2018 diazepam (VALIUM) solution 0.5-1 mg 2209 (Given - Provider: Tylor Stern RN) 1839 (Given - Provider: Ruba Burton RN - Comment: Wasted with Melita Bob RN) 0.5-1 mg, Oral, EVERY 6 HOURS PRN, Starting 09/02/18 at 1 507, muscle spasms emollient (VANICREAM) cream Topical, EVERY 6 HOURS PRN, other, itchi ness, Starting Suze 09/04/18 at 1214, Apply to skin morphine (MSIR) IR half-tab 7.5 mg 0702 (Given - Provi trena: Dulce Oneill RN) 7.5 mg, Oral, EVERY 4 HOURS PRN, Startin g 09/01/18 at 1241, moderate to severe pain, breakthrough pain naloxone (NARCAN) injection 0.1-0.4 mg 0.1-0.4 mg, Intravenous, EVERY 2 MIN PRN , opioid reversal, Starting 08/30/18 at 1759, For respiratory rate LESS than or EQUAL to 8. Partial reversal dose: 0.1 mg titrated q 2 minutes for Analgesia Si de Effects Monitoring Sedation Level of 3 (frequently drowsy, arousable, drifts to sleep during conversation).Full reversal dose: 0.4 mg bolus for Analgesia Side Effects Monitoring Sedation Level of 4 ( somnolent, minimal or no response to sti mulation). For ordered IV doses 0.1-2mg give IVP. Give each 0.4mg over 15 seconds in emergency situations. For non- emergent situations further dilute in 9mL of NS to facilitate titration of response. ondansetron (ZOFRAN-ODT) ODT tab 4 mg 4 mg, Oral, EVERY 6 HOURS PRN, nausea, v omiting, Starting 09/01/18 at 0707, With dry hands, peel back foil backing and gently remove tablet; do not push oral disintegrating tablet through foil backin g; administer immediately on tongue and oral disintegrating tablet dissolves in seconds; then swallow with saliva; liquid not required. polyethylene glycol (MIRALAX/GLYCOLAX) Packet 17 g 115 5 (Given - Provider: Ruba Burton RN)2015 (Given - Provider: Tylor Stern RN) 0806 (Given - Provider: Ruba Burton RN)1223 (Given - Provider: Ruba Burton RN) 17 g, Oral, EVERY 2 HOURS PRN, constipat ion, Starting 09/03/18 at 1130, Until passes stool. 1 Packet = 17 grams. Mixed prescribed dose in 8 ounces of water. Follow with 8 oz. of water. sodium chloride (PF) 0.9% PF flush 0.2-5 mL 1341 (Given - Provider: Mary Cornejo RN - Comment: piv needed for ct) 0.2-5 mL, Intracatheter, EVERY 5 MIN PRN , line flush, post meds or blood draw, Starting 08/30/18 at 1312, for peripheral IV line flush post IV meds. 0.2-3 mL post IV meds. 0.2-5 mL post blood draw. Volume is dependent on catheter size. documented in this encounter Care Teams Soap Maker Relationship Specialty Start Date End Date Stephen Sauceda PCP - General Pediatrics 03/06/17 06/24/[address] [id number] documented as of this encounter
--- OUTSIDE RECORDS SUMMARY | 2022-04-10 09:56 | XMS_ITS | Encounter Summary ---
:2000 Author Organization [place] Address [address] [facility] [place] [address] Care Team Providers Name Role Phone Stephen Sauceda Primary Care Provider Reason for Referral (Routine) Specialty Diagnoses / Procedures Referred By Contact Refer red To Contact Elvis Leong MD [address] [facility] [address] [place], [place] [address] Referral ID Status Reason Start Date Expiration Date Visits Requ ested Visits Authorized Reason for Visit Reason Comments Depression pt increasing ly depressed i n last 2 weeks after revent hospitalization for heart issues. started le xapro 2 weeks ago pt today sent texts to friends Auth/Cert Specialty Diagnoses / Procedures Referred By Contact Refer red To Contact Behavioral Health Diagnoses Depression with suicidal ideation Depressed [facility] [address] [place] [address] Phone: Referral ID Status Reason Start Date Expiration Date Visits Requ ested Visits Authorized [id number] 1 1 Encounter Details Date Type Department Care Team Description 09/30/2018 - Hospital Encounter [facility] Shaheed Meyer MD [address] [place] [address] [place] [id number] Severe episode of recurrent major depres sive disorder, without psychotic features (H) (Primary Dx); 10/03/2018 Clinic Young Adult Yo Sanchez MD [address] [place] [address] Depression with suicidal ideation Inpatient Mental Elvis Leong MD [id number] [place] [address] [facility] [address] [place] [address] Social History Tobacco Use Types [...] Sign Reading Time Taken Comments Blood Pressure 115/57 10/03/2018 9:47 AM CDT Pulse 61 10/03/2018 9:47 AM CDT Temperature 35.7 ??C (96.2 ??F) 10/03/2018 9:00 AM CDT Respiratory Rate 16 10/01/2018 2:00 PM CDT Oxygen Saturation 94% 10/03/2018 9:00 AM CDT Inhaled Oxygen Concentration - - Weight 60.5 kg (133 lb 6.1 oz) 10/02/2018 11:10 AM CDT Height - - Body Mass Index 22.72 09/10/2018 12:01 PM CDT Body Mass Index Percentile 55.74 % 10/02/2018 11:10 AM C DT Growth Chart: CDC (Boys, 2-20 Years) documented in this encounter Discharge Summaries Elvis Leong MD - 10/03/2018 1:01 PM CDT Psychiatric Discharge Summary Jude Bills Age: [age] year old Date of : 2000 Date of Admission: 09/30/2018 Date of Discharge: 10/03/2018 1:01 PM Admitting Physician: Elvis Leong MD Discharge Physician: Elvis Leong MD Event Leading to Hospitalization: Jude Bills is an 18 year old male with a complex medical history significant for multiple congenital conditions (involving heart, lung, spleen, intestine), currently on escitalopram (10 mg daily, started 2 weeks ago) and trazodone (50 mg daily) and multiple cardiovascular medications (see hospitalist note) who presents for suicidal ideation. ?? Patient has had a history of unspecified depressive symptoms over the course of two years. 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 ?? Approximately 2 days ago, the patient's girlfriend broke up with him. That same day, he didn't have a good time at his occupational therapy appointment. At that point, he felt at his worst, with feelings of hopelessness, guilt, and cloudy thoughts. He subsequently posted on [employer] ([employer]) that he messes up all the time, and that he is done with it. He was considering possibly committing suicide by stabbing himself in the heart or carbon monoxide poisoning. When he was walking in the emergency department, he had visions of stabbing himself with some scissors nearby. He denies any recentalcohol or substance use. ?? While the patient still endorses the feelings of hopeless and guilt, he feels much improved from when he was in the emergency department. He currently denies any suicidal ideation, visual hallucinations, or auditory hallucinations. Patient states that he currently feels safe, and that he would feel safe if he went back home. He feels comfortable opening up to his parents and his occupational therapist. He last saw a therapist for his psychological symptoms 1-2 months ago, but he did not have good rapport with that provider. He is open for referral to other treatment programs or therapists. ?? Jude notes that the last time he felt down was last hal, where he felt irritable and exploded. At the time, he felt that people talking to him made him irritated. The last time he had suicidal ideation was last year, where he had a pair of scissors with the intention to stab himself, but he did not follow through with this. ?? Patient is currently in High School, studying economics, [place], mathematics, aid, and physical education. 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 His [employer] test is on 11/14/18, and he also has an upcoming citizenship test (patient was adopted from [place] at age 3). He expresses concern that his hospitalizations and appointments will interfere with his school. ?? Spoke to patient's parents. Father Bear says that the patient will start regular therapy in October. Was better during visit last night. Not opposed to discharge tomorrow. Mother Jaimie says that therapy will be every two weeks but she will look at increasing it to weekly. Agreeable with option of day program for more intense therapy. Okay with him coming home tomorrow and feels he would be safe. See Admission note for additional details. DIagnoses: MDD, recurrent, moderate Labs: Lab Results Component Value Date NA 139 10/02/2018 Lab Results Component Value Date CHLORIDE 105 10/02/2018 Lab Results Component Value Date BUN 19 10/02/2018 Lab Results Component Value Date POTASSIUM 3.8 10/02/2018 Lab Results Component Value Date CO2 28 10/02/2018 Lab Results Component Value Date CR 0.88 10/02/2018 Lab Results Component Value Date WBC 5.2 10/02/2018 HGB 16.4 10/02/2018 HCT 49.0 10/02/2018 MCV 87 10/02/2018 PLT 174 10/02/2018 Lab Results Component Value Date AST 17 10/02/2018 ALT 22 10/02/2018 ALKPHOS 87 10/02/2018 BILITOTAL 1.3 10/02/2018 BILICONJ 0.0 04/28/2005 Lab Results Component Value Date TSH 2.27 10/02/2018 Consults: Consultation during this admission received from internal medicine: A/P: # Congenital heart abnormalities s/p Fontan procedure, DORV, d-TGA # Pulmonary stenosis # LV Hypoplasia 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 Resumed on admission at appropriate frequency/doses. VSS. - Please notify IM if patient experiencing palpitations, syncope or chest pain ?? Hx of R psoas hematoma. Holding coumadin. - Should follow up with hematology outpatient, as previously instructed, for future AC management ?? Depression, SI. Management per primary team, psychiatry. Hospital Course: Jude Bills was admitted to Station 4[facility] with attending Elvis Leong MD as a voluntary patient. Thepatient was placed under status 15 (15 minute checks) to ensure patient safety. CBC, BMP and utox obtained. All outpatient medications were continued. Jude Bills did participate in groups and was visible in the milieu. The patient's symptoms of depression improved. Jude Bills was released to home. At the time of discharge Jude Bills was determined to not be a danger to himself or others. At the current time of discharge, the patient does not meet criteria for involuntary hospitalization. On the day of discharge, the patient reports that they do not have suicidal or homicidal ideation and would never hurt themselves or others. Steps taken to minimize risk include: assessing patient???s behavior and thought process daily during hospital stay, discharging patient with adequate plan for follow up for mental and physical health and discussing safety plan of returning to the hospital should the patient ever have thoughts of harming themselves or others. Therefore, based on all available evidence including the factors cited above, the patient does not appearto be at imminent risk for self-harm, and is appropriate for outpatient level of care. Discharge Medications: Discharge Medication List as of 10/03/2018 12:44 PM CONTINUE these medications which have NOT CHANGED Details acetaminophen (TYLENOL) 500 MG tablet Take 500 mg by mouth every 8 hours as needed for mild pain, Historical digoxin (LANOXIN) 250 MCG tablet Take 1 tablet (250 mcg) by mouth daily, Disp-30 tablet, R-11, E-Prescribe Escitalopram Oxalate (LEXAPRO PO) Take 10 mg by mouth daily , Historical furosemide (LASIX) 20 MG tablet Take 0.5 tablets (10 mg) by mouth daily, Disp-15 tablet, R-1, E-Prescribe metoprolol succinate ER (TOPROL-XL) 25 MG 24 hr tablet TAKE ONE TABLET BY MOUTH ONE TIME DAILY , Disp-30 tablet, R-2, E-Prescribe montelukast (SINGULAIR) 10 MG tablet Take 10 mg by mouth At Bedtime, Historical omeprazole (PRILOSEC) [address] capsule TAKE 1 CAPSULE BY MOUTH TWICE DAILY FOR ONE WEEK THEN ONCE DAILY, Disp-30 capsule, R-2, E-Prescribe sildenafil (REVATIO) 20 MG tablet Take 1 tablet (20 mg) by mouth three times daily for pulmonary hypertension. Never use with nitroglycerin, terazosin or doxazosin., Disp-90 tablet, R-11, E-Prescribe spironolactone (ALDACTONE) 25 MG tablet Take 1 tablet (25 mg) by mouth daily, Disp-30 tablet, R-11, E-Prescribe traZODone (DESYREL) 50 MG tablet Take 50 mg by mouth At Bedtime, Historical Psychiatric Examination: The patient was not seen on the day of discharge. Discharge Plan: Continue medications as above. Health Care Follow-up Appointments: Individual Therapy: Date/Time: October 06@11:00am Provider: ZACARIAS Winslow (Bridging Therapist) Address: [address] [address] ?? Date/Time: October 27@ 9:00am Provider: ZACARIAS Daigle Address: [address] [address] ?? Medication Management: Date/Time: October 06@09:15am Provider: Dr. Sauceda Address: [address] [address] ?? Day Treatment Referral: [facility] [address] [place] [phone] ? Attend all scheduled appointments with your outpatient providers. Call at least 24 hours in advance if you need to reschedule an appointment to ensure continued access to your outpatient providers. Major Treatments, Procedures and Findings: You were provided with: a psychiatric assessment, assessed for medical stability, medication evaluation and/or management, group therapy and milieu management ?? Symptoms to Report: feeling more aggressive, increased confusion, losing more sleep, mood getting worse or thoughts of suicide ?? Early warning signs can include: increased depression or anxiety sleep disturbances increased thoughts or behaviors of suicide or self-harm increased unusual thinking, such as paranoia or hearing voices ?? Safety and Wellness: Take all medicines as directed. Make no changes unless your doctor suggests them. Follow treatment recommendations. Refrain from alcohol and non-prescribed drugs. If there is a concern for safety, call 911. ?? Resources: Crisis Intervention: 874.460.8570 or 804-975-2408 (TTY: 651.735.7860). Call anytime for help. National [place] on Mental Illness (www.[place].ruddy.org): 408.534.2562 or 291-039-3489. [place] Association for Children's Mental Health (www.macmh.org): 362.730.2018. Suicide Awareness Voices of Education (SAVE) (www.save.org): 461-222-BZSW (4056) National Suicide Prevention Line (www.mentalhealthmn.org): 618-404-XCMM (2200) [place] [address] for immediate support and crisis intervention Crisis text line: Text [place] to 360173. Free, confidential, 07/01. Crisis Intervention: 155.162.1681 or 285-716-5721. Call anytime for help. Mobile Crisis Response currently serves adults 07/01, . ? The treatment team has appreciated the opportunity to work with you. If you have any questions or concerns our unit number is [phone] You may be receiving a follow-up phone call within the next three days from a bilingual inside sales representative from behavioral health. Attestation: The patient was seen and evaluated by me. I spent less than 30 minutes on discharge day activities. Elvis Leong MD documented in this encounter Discharge Instructions Discharge InstructionsTeena Estrada LMFT - 10/03/2018 10:33 AM CDT Behavioral Discharge Planning and Instructions Summary: You were admitted on 09/30/2018 due to Depression and Suicidal Ideations. You were treated by Dr. Elvis Easley MD and discharged on 10/03/2018 from Station 4A to Home Principal Diagnosis: Depression with suicidal ideation Health Care Follow-up Appointments: Individual Therapy: Date/Time: October 06@11:00am Provider: ZACARIAS Winslow (Bridging Therapist) Address: [address] [address] Date/Time: October 27@ 9:00am Provider: ZACARIAS Daigle Address: [address] [address] Medication Management: Date/Time: October 06@09:15am Provider: Dr. Sauceda Address: [address] [address] Day Treatment Referral: [facility] [address] [place] [address] Attend all scheduled appointments with your outpatient providers. Call at least 24 hours in advance if you need to reschedule an appointment to ensure continued access to your outpatient providers. Major Treatments, Procedures and Findings: You were provided with: a psychiatric assessment, assessed for medical stability, medication evaluation and/or management, group therapy and milieu management Symptoms to Report: feeling more aggressive, increased confusion, losing more sleep, mood getting worse or thoughts of suicide Early warning signs can include: increased depression or anxiety sleep disturbances increased thoughts or behaviors of suicide or self-harm increased unusual thinking, such as paranoia or hearing voices Safety and Wellness: Take all medicines as directed. Make no changes unless your doctor suggests them. Follow treatment recommendations. Refrain from alcohol and non-prescribed drugs. If there is a concern for safety, call 441. Resources: Crisis Intervention: 505.723.2787 or 286-378-0934 (TTY: 327.332.1187). Call anytime for help. National [place] on Mental Illness (www.mn.ruddy.org): 715.524.8886 or 610-787-8368. [place] Association for Children's Mental Health (www.mac.org): 855.621.4760. Suicide Awareness Voices of Education (SAVE) (www.save.org): 476-619-LZIV (8138) National Suicide Prevention Line (www.mentalhealthmn.org): 257-663-BPVD (3228) [place] [address] for immediate support and crisis intervention Crisis text line: Text [place] to 717120. Free, confidential, 07/01. Crisis Intervention: 520.825.9619 or 568-781-1370. Call anytime for help. Mobile Crisis Response currently serves adults 07/01, . The treatment team has appreciated the opportunity to work with you. If you have any questions or concerns our unit number is [phone] You may be receiving a follow-up phone call within the next three days from a bilingual inside sales representative from behavioral health. documented in this encounter Medications at Time of Discharge Medication Sig Dispensed Refills Start Date End Date acetaminophen (TYLENOL) Take 500 mg by 0 02/17/2020 500 MG tablet mouth every 8 hours as needed for mild pain digoxin (LANOXIN) 250 MCG Take 1 tablet (250 30 tablet 11 12/14/2018 tabletIndications: SVT mcg) by mouth daily (supraventricular tachycardia) (H) Escitalopram Oxalate Take 10 mg by mouth 0 12/26/2019 (LEXAPRO PO) daily furosemide (LASIX) 20 MG Take 0.5 tablets 15 tablet 1 09/1912/29/2018 tabletIndications: (10 mg) by mouth Hypoplastic left heart daily syndrome metoprolol succinate ER TAKE ONE TABLET BY 30 tablet 2 08/201810/13/2018 (TOPROL-XL) 25 MG 24 hr MOUTH ONE TIME tabletIndications: DAILY Tachycardia montelukast (SINGULAIR) Take 10 mg by mouth 0 02/17/2020 10 MG tablet At Bedtime omeprazole (PRILOSEC) 20 TAKE 1 CAPSULE BY 30 capsule 2 08/1612/14/[address] capsuleIndications: MOUTH TWICE DAILY Chest pain, unspecified FOR ONE WEEK THEN type ONCE DAILY sildenafil (REVATIO) 20 Take 1 tablet (20 90 tablet 11 06/2111/04/2019 MG tabletIndications: mg) by mouth three 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 Never use with nitroglycerin, terazosin or doxazosin. spironolactone Take 1 tablet (25 30 tablet 11 09/25/2017 (ALDACTONE) 25 MG mg) by mouth daily tabletIndications: Hypoplastic left heart syndrome traZODone (DESYREL) 50 MG Take 50 mg by mouth 0 12/26/2019 tablet At Bedtime documented as of this encounter Progress Notes Tamara Tyson RN - 10/02/2018 11:13 PM CDT Pt met with a ict help desk technician this evening. Trash Hauler called to inform RN that pt mentioned nursing home through the visit that he has had 5 deaths in his life recently. Several have been relatives due to medical conditions and he also lost someone close to his age who also due to a medical condition. Trash Hauler states that pt was somewhat shut down about these events, but believes that pt could benefit from further grief education. Castro Stubbs - 10/02/2018 10:47 PM CDT Pt was visible in the milieu. Denied mental health symptoms. Full-range affect. Mood was calm throughout. Patient reported having a positive visit with family. 10/02/18 2200 Behavioral Health Hallucinations denies / not responding to hallucinations Thinking intact Orientation person: oriented;place: oriented Memory baseline memory Insight admits / accepts Judgement intact Eye Contact at examiner Affect full range affect Mood mood is calm Physical Appearance/Attire attire appropriate to age and situation Hygiene well groomed Suicidality other (see comments) (denies) 1. Wish to be No 2. Non-Specific Active Suicidal Thoughts No Self Injury other (see comment) (denies) Elopement (none observed) Activity other (see comment) (visible in milieu) Speech clear;coherent Medication Sensitivity no stated side effects;no observed side effects Psychomotor / Gait balanced;steady Activities of Daily Living Hygiene/Grooming independent Oral Hygiene independent Dress independent Room Organization independent ammy English - 10/02/2018 5:36 PM CDT [facility] [place] [place] VISIT REFERRAL SOURCE: patient/family request at admission for disbursing officer support Brief visit with pt Jude who shared that he wasn't sure what he wanted to discuss, but several themes emerged: ?? The frustration over his long-term (since ) illness which impacts his daily life. ?? The illness has recently progressed/changed to where he cannot work out, one of his solid coping mechanisms ?? Other coping mechanisms include playing video games like Call of Duty, listening to music (anything,KTIS, bad rap music, pop, etc), and talking about it...I'm trying to get better at that. ?? He endorsed a good support network, including his manager social services/social work case manager ?? Danilo eventually mentioned that he's been having doubts about nely, specifically whether God is real or not ?? He noted that part of his stressors recently has been that people in my life keep dying. He noted that several grandparents have recently, as well as a friend his age who of medical illlness/complications. Based on some of this content, interventions I provided included normalization, different nely perspectives on doubt/anger (book of Psabhavin, God's solidarity with our anger/sadness,etc.), and some brief education about grief and trauma. I also followed up with his nurse specifically about the grief component, as I had not seen that listed in the consult and may merit further psychosocial ed if times allows on unit. PLAN: SHS remains available to Jude for the duration of hospitalization. Tammy Gillespie MDiv, [facility] Staff Trash Hauler Pager [phone] Teena Estrada LMFT - 10/02/2018 2:47 PM CDT Initial Psychosocial Assessment I have reviewed the chart, met with the patient, and developed Care Plan. Patient Legal (Hospital) Status: Voluntary Presenting Problem: Per Patient: Health stuff in general. I had a recent breakup Per ED: Jude Bills is a 18 year old male with PMH notable for depression, congenital intestine/splenic deformities, who presents to the ED with depressed mood. Patient posted on [employer] that he was going to kill himself, which prompted a call to his mother by someone who saw the post. Patient hasbeen seeing a therapist but has minimally been helping. Patient states he would not be safe at home,has plan of stabbing himself or CO poisoning. Lexapro was started by his PCP 2 weeks ago, has not seen a psychiatrist. Mental health history: This is patient's first hospitalization for mental health. Pt reported he hadthoughts of harming himself last summer by stabbing himself with scissors. Pt also noted he tried tosuffocate himself in the ED. He stated, I tried to not breathe. Pt has a history of depression and anxiety. He reported his current symptoms are increased suicidal thoughts and visions, low motivation and energy. According to pt he currently see's someone for Occupational Therapy for his depression. He doesn't currently see a therapist and denies past mental health treatment. Chemical use history: Pt denies. Family Description (Constellation, Family Psychiatric History): Pt was adopted at age [age]. He doesn't know his family. Pt grew up in [place] and then moved around.He has 2 sisters and 1 brother ages 22,18,13. Significant Life Events (Illness, Abuse, Trauma, ): Patient reports medical trauma's/ past surgeries. Living Situation: He currently resides in [place], [place]. He lives with her parents older sister (22) and brother (13). Educational Background: Pt is currently in High School. He attends [employer]. 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 Private insurance. Legal Issues: Patient denies Ethnic/Cultural Issues: [place] Islander Spiritual Orientation: None identified Service History: N/A Current Treatment Providers are: Stephen [email or web address] Manju-Occupational Therapist Social Service Assessment/Social Functioning/Plan: Patient has been admitted for psychiatric stabilization. Patient will have psychiatric assessment and medication management by the psychiatrist. Medications will be reviewed and adjusted per MD as indicated. The treatment team will continue to assess and stabilize the patient's mental health symptoms with the use of medications and therapeutic programming. Hospital staff will provide a safe environment and a therapeutic milieu. Staff will continue to assess patient as needed. Patient will participate in unit groups and activities. Patient will receive individual and group support on the unit. CTC will do individual inpatient treatment planning and after care planning. CTC will discuss options for increasing community supports with the patient. CTC will coordinate with outpatient providers and will place referrals to ensure appropriate follow up care is in place. Patient would benefit from: Medication management and Individual therapy. Teena Estrada LMFT - 10/02/2018 2:45 PM CDT The patient specific goals include: Patient will participate in unit programming Patient will identify triggers and positive coping skills Patient will take medications as prescribed by physician both for mental health and medical Patient coached to work on coping packet The patient identified the following reasons for hospitalization: Suicidal thoughts and visions Increased depression The patient identified the following goals for discharge: Suicidal thoughts/vision be more manageable. Decrease in Depression Lalo Ngo - 10/02/2018 2:10 PM CDT Pt was somewhat present in the milieu Pt did not attend groups Pt was occasionally present in the milieu but kept to self. Pt did spend time socializing with his roommate and appeared to be in an upbeat mood. Pt exercised frequently during the day. Pt had a full range affect and denied all mental health symptoms Gonsalo May - 10/01/2018 10:02 PM CDT 10/01/182199 Therapeutic Recreation Type of Intervention structured groups Activity game Response Participates, initiates socially appropriate Hours 1 Pt actively participated in a structured Therapeutic Recreation group with a focus on leisure participation, stress reduction, and social engagement via a group game. Pt remained focused and engaged throughout full duration of group. Pt shared with group a recreational interest they enjoy during the spring. Showed progress in session goals. Pt mood was calm and quiet, but was appropriate with interactions. Jarred Sweeney - 10/01/2018 9:50 PM CDT Pt took part in all group activities during the shift. He reported that he feels happy, denies suicidal ideations, self-injurious thoughts ,depression, rates his anxiety at five, and mood at six out often. Patient stated that he became depressed prior to admission because of his medical conditions. Overall, patient appears calm, pleasant, socially appropriate his room-mate and others, displays bright affect, and accepts redirections. He visit with his father during visiting hour. 10/01/182137 Behavioral Health Hallucinations denies / not responding to hallucinations Thinking distractable Orientation person: oriented;place: oriented Memory baseline memory Insight admits / accepts Judgement impaired Eye Contact at examiner Affect full range affect Mood mood is calm Physical Appearance/Attire appears stated age Hygiene well groomed Suicidality other (see comments) (Pt Denies) 1. Wish to be No 2. Non-Specific Active Suicidal Thoughts No Self Injury other (see comment) (Pt denies) Elopement (No concerning behaviors reported or observed) Activity other (see comment) (Participates) Speech clear;coherent Medication Sensitivity no stated side effects;no observed side effects Psychomotor / Gait balanced;steady Coping/Psychosocial Verbalized Emotional State acceptance;happiness;anxiety Safety Suicidality Status 15 Assault status 15 Elopement status 15 Activities of Daily Living Hygiene/Grooming independent Oral Hygiene independent Dress independent;scrubs (behavioral health) Room Organization independent Activity Activity Assistance Provided independent Dulce Farooq OT - 10/01/2018 2:31 PM CDT Pt has not attended scheduled occupational therapy sessions. Encourage attendance and participation. Pt will be given self-assessment form, and OT staff will explain the purpose of including them in their treatment plan and offer options for meeting their needs. Lalo Ngo - 10/01/2018 2:14 PM CDT Images from the original note were not included. 10/01/18 1413 Patient Belongings Did you bring any home meds/supplements to the hospital? No Patient Belongings remains with patient;locker Patient Belongings Remaining with Patient clothing Patient Belongings Put in Hospital Secure Location (Security or Locker, etc.) clothing;shoes Belongings Search Yes Clothing Search Yes Second Staff Jasper F No Items Sent to Security Items Remaining With Patient: underwear Items Placed in Pt Bin: sweatshirt, t-shirt, jeans, shoes, socks A Admission: I am responsible for any personal items that are not sent to the safe or pharmacy. [facility] is not responsible for loss, theft or damage of any property in my possession. Signature: Date: Time: Staff Signature: Date: Time: 2nd Staff person, if patient is unable/unwilling to sign: Signature: Date: Time: Discharge: [facility] has returned all of my personal belongings: Signature: Date: Time: Staff Signature: Date: Time: documented in this encounter H&P Notes Elvis Leong MD - 10/02/2018 8:[address] [facility], [place] Psychiatric History and Physical Admission date: 09/30/2018 Chief Complaint: Suicidal Ideation I was down, and felt I was messing up all the time and wanted to be done with it HPI: Jude Bills is an 18 year old male with a complex medical history significant for multiple congenital conditions (involving heart, lung, spleen, intestine), currently on escitalopram (10 mg daily, started 2 weeks ago) and trazodone (50 mg daily) and multiple cardiovascular medications (see hospitalist note) who presents for suicidal ideation. Patient has had a history of unspecified depressive symptoms over the course of two years. 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 Approximately 2 days ago, the patient's girlfriend broke up with him. That same day, he didn't have a good time at his occupational therapy appointment. At that point, he felt at his worst, with feelings of hopelessness, guilt, and cloudy thoughts. He subsequently posted on [employer] ([employer]) that he messes up all the time, and that he is done with it. He was considering possibly committing suicide by stabbing himself in the heart or carbon monoxide poisoning. When he was walking in the emergency department, he had visions of stabbing himself with some scissors nearby. He denies any recentalcohol or substance use. While the patient still endorses the feelings of hopeless and guilt, he feels much improved from when he was in the emergency department. He currently denies any suicidal ideation, visual hallucinations, or auditory hallucinations. Patient states that he currently feels safe, and that he would feel safe if he went back home. He feels comfortable opening up to his parents and his occupational therapist. He last saw a therapist for his psychological symptoms 1-2 months ago, but he did not have good rapport with that provider. He is open for referral to other treatment programs or therapists. Jude notes that the last time he felt down was last , where he felt irritable and exploded. At the time, he felt that people talking to him made him irritated. The last time he had suicidal ideation was last year, where he had a pair of scissors with the intention to stab himself, but he did not follow through with this. Patient is currently in High School, studying economics, Tuvaluan, mathematics, aid, and physical education. 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 His [employer] test is on 11/14/18, and he also has an upcoming citizenship test (patient was adopted from [place] at age 3). He expresses concern that his hospitalizations and appointments will interfere with his school. Spoke to patient's parents. Father Bear says that the patient will start regular therapy in October. Was better during visit last night. Not opposed to discharge tomorrow. Mother Jaimie says that therapy will be every two weeks but she will look at increasing it to weekly. Agreeable with option of day program for more intense therapy. Okay with him coming home tomorrow and feels he would be safe. Past Psychiatric History: Per mother, patient has had a history of depressive symptoms that worsened over the last 6 months. Mother believes this may be related to an illness in the fall and a recent hospitalization for cardiacissues (08/30/18 - 09/05/18). He had two sessions of individual psychotherapy with ZACARIAS Winslow between 04/10/18 and 09/30/18 at [facility], where the diagnosis was Adjustment Disorder with mixed depressive and anxious symptoms and social anxiety disorder. However, during both sessions the patient did not disclose any suici clifford ideation. Patient is open to other therapy options. Substance Use and History: Patient denies any alcohol or substance use. Past Medical History: PAST MEDICAL HISTORY: Past Medical History: Diagnosis Date ??? 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 Congenital anomalies of spleen Polysplenia ??? Esophageal reflux ??? 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 [...] Akash Graves MD; Location: [facility] OR Family History: FAMILY HISTORY: Family History Adopted: Yes Problem Relation Age of Onset ??? Unknown/Adopted Other child adopted from [place] at 10mo of age ??? Unknown/Adopted Other ??? Unknown/Adopted Other Social History: Please see the full psychosocial profile from the clinical cold rolling coordinator. SOCIAL HISTORY: Social History Tobacco Use ??? Smoking status: Never Smoker ??? Smokeless tobacco: Never Used ??? Tobacco comment: none at home Substance Use Topics ??? Alcohol use: No Physical ROS: The 10-point review of systems was negative except as noted in HPI. 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 acetaminophen (TYLENOL) 500 MG tablet Take 500 mg by mouth every 8 hours as needed for mild pain09/30/2018 at Unknown time ??? digoxin (LANOXIN) 250 MCG tablet Take 1 tablet (250 mcg) by mouth daily 30 tablet 11 10/01/2018 at Unknown time ??? Escitalopram Oxalate (LEXAPRO PO) Take 10 mg by mouth daily 10/01/2018 at Unknown time ??? furosemide (LASIX) 20 MG tablet Take 0.5 tablets (10 mg) by mouth daily 15 tablet 1 10/01/2018 atUnknown time ??? metoprolol succinate ER (TOPROL-XL) 25 MG 24 hr tablet TAKE ONE TABLET BY MOUTH ONE TIME DAILY 30 tablet 2 10/01/2018 at Unknown time ??? montelukast (SINGULAIR) 10 MG tablet Take 10 mg by mouth At Bedtime Past Week at am ??? omeprazole (PRILOSEC) [address] capsule TAKE 1 CAPSULE BY MOUTH TWICE DAILY FOR ONE WEEK THEN ONCE DAILY (Patient taking differently: Take 20 mg by mouth daily TAKE 1 CAPSULE BY MOUTH TWICE DAILY FOR ONE WEEK THEN ONCE DAILY) 30 capsule 2 09/30/2018 at Unknown time ??? sildenafil (REVATIO) 20 MG tablet Take 1 tablet (20 mg) by mouth three times daily for pulmonaryhypertension. Never use with nitroglycerin, terazosin or doxazosin. 90 tablet 11 10/01/2018 at Unknown time ??? spironolactone (ALDACTONE) 25 MG tablet Take 1 tablet (25 mg) by mouth daily 30 tablet 11 10/01/2018 at Unknown time ??? traZODone (DESYREL) 50 MG tablet Take 50 mg by mouth At Bedtime 09/29/2018 Allergies: Allergies Allergen Reactions ??? Motrin [Ibuprofen] ??? Seasonal Allergies Itchy eyes, runny nose, hives when around tall grasses Labs: Recent Results (from the past 48 hour(s)) Drug abuse screen 6 urine (chem dep) Collection Time: 09/30/18 8:53 PM Result Value Ref Range Amphetamine Qual Urine Negative NEG^Negative Barbiturates Qual Urine Negative NEG^Negative Benzodiazepine Qual Urine Negative NEG^Negative Cannabinoids Qual Urine Negative NEG^Negative Cocaine Qual Urine Negative NEG^Negative Ethanol Qual Urine Negative NEG^Negative Opiates Qualitative Urine Negative NEG^Negative CBC with platelets differential Collection Time: 10/02/18 7:41 AM Result Value Ref Range WBC 5.2 4.0 - 11.0 10e9/L RBC Count 5.62 4.4 - 5.9 10e12/L Hemoglobin 16.4 13.3 - 17.7 g/dL Hematocrit 49.0 40.0 - 53.0 % MCV 87 78 - 100 fl MCH 29.2 26.5 - 33.0 pg MCHC 33.5 31.5 - 36.5 g/dL RDW 13.0 10.0 - 15.0 % Platelet Count 174 150 - 450 10e9/L Diff Method Automated Method % Neutrophils 52.8 % % Lymphocytes 32.3 % % Monocytes 12.2 % % Eosinophils 1.9 % % Basophils 0.6 % % Immature Granulocytes 0.2 % Nucleated RBCs 0 0 /100 Absolute Neutrophil 2.7 1.6 - 8.3 10e9/L Absolute Lymphocytes 1.7 0.8 - 5.3 10e9/L Absolute Monocytes 0.6 0.0 - 1.3 10e9/L Absolute Eosinophils 0.1 0.0 - 0.7 10e9/L Absolute Basophils 0.0 0.0 - 0.2 10e9/L Abs Immature Granulocytes 0.0 0 - 0.4 10e9/L Absolute Nucleated RBC 0.0 Comprehensive metabolic panel Collection Time: 10/02/18 7:41 AM Result Value Ref Range Sodium 139 133 - 144 mmol/L Potassium 3.8 3.4 - 5.3 mmol/L Chloride 105 98 - 110 mmol/L Carbon Dioxide 28 20 - 32 mmol/L Anion Gap 6 3 - 14 mmol/L Glucose 105 (H) 70 - 99 mg/dL Urea Nitrogen 19 7 - 21 mg/dL Creatinine 0.88 0.50 - 1.00 mg/dL GFR Estimate >90 >60 mL/min/[1.73_m2] GFR Estimate If Black >90 >60 mL/min/[1.73_m2] Calcium 9.1 9.1 - 10.3 mg/dL Bilirubin Total 1.3 0.2 - 1.3 mg/dL Albumin 4.5 3.4 - 5.0 g/dL Protein Total 7.9 6.8 - 8.8 g/dL Alkaline Phosphatase 87 65 - 260 U/L ALT 22 0 - 50 U/L AST 17 0 - 35 U/L Lipid panel Collection Time: 10/02/18 7:41 AM Result Value Ref Range Cholesterol 116 <170 mg/dL Triglycerides 103 (H) <90 mg/dL HDL Cholesterol 42 (L) >45 mg/dL LDL Cholesterol Calculated 53 <110 mg/dL Non HDL Cholesterol 74 <120 mg/dL TSH with free T4 reflex and/or T3 as indicated Collection Time: 10/02/18 7:41 AM Result Value Ref Range TSH 2.27 0.40 - 4.00 mU/L Physical and Psychiatric Examination: BP 132/69 Pulse 68 Temp 95.9 ??F (35.5 ??C) (Tympanic) Resp 16 Wt 61 kg (134 lb 7.7 oz) SpO2 94% BMI 22.90 kg/m?? Weight is 134 lbs 7.69 oz Body mass index is 22.9 kg/m??. Physical Exam: I have reviewed the physical exam as documented by by the medical team and agree with findings and assessment and have no additional findings to add at this time. Mental Status Exam: Appearance: awake, alert, adequately groomed, dressed in hospital scrubs and appeared as age stated Attitude: cooperative Eye Contact: good Mood: depressed Affect: mood congruent, intensity somewhat blunted, labile, full range and reactive Speech: clear, coherent Language: fluent and intact in Tu[place] Psychomotor, Gait, Musculoskeletal: no evidence of tardive dyskinesia, dystonia, or tics Thought Process: logical and goal oriented Associations: no loose associations Thought Content: no evidence of suicidal ideation or homicidal ideation, no evidence of psychotic thought, no auditory hallucinations present and no visual hallucinations present Insight: fair Judgement: fair Oriented to: time, person, and place Attention Span and Concentration: fair Recent and Remote Memory: fair Fund of Knowledge: low-normal Admission Diagnoses: Depression with suicidal ideation Assessment & Plan: 1) Potential discharge tomorrow (10/03) 2) Discussed care with hospitalist, current medication regimen is appropriate 3) Maintain CATTERY OPERATOR escitalopram 10 mg Qday 4) Schedule outpatient group therapy for young adults - patient will receive call after discharge 5) Follow up with primary care & specialists (hematology consult with Dr. Yoder) as previouslyscheduled Disposition Plan Reason for ongoing admission: Care coordination and outpatient follow up Discharge location: home with family Discharge Medications: not ordered Follow-up Appointments: not scheduled Legal Status: voluntary, in process of parent guardianship Entered by: Maico Tobar on 10/02/2018 at 8:55 AM documented in this encounter Consult Notes Radha Weber PA-C - 10/01/2018 2:54 PM CDTAssociated Order(s): INTERNAL MEDICINE ADULT IP CONSULT FOR BEH YOUNG ADULT ON 4A Brief Medicine Note Internal medicine consulted due to pt with complex medical history. 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 He is s /p multiple heart procedures in childhood which he apparently tolerated well. 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 More recently he was diagnosed with a R psoas hematoma for which he has been holding warfarin for. He was recently admitted for this 08/30-09/05/18. He was most recently seen by pediatric cardiology 09/10/18 at which point no changes to his medication regimen were made. He is currently admitted to [facility] station 4A due to depression with suicidal ideation. Discussed consult with Dr. Leong. There are no acute medical questions or concerns at this time, and patient is stable on the floor. Will hold off on consult for now. Chart reviewed and assessment outlined as below. If medical questions or concerns do arise while patient is on the floor, please do not hesitate to contact IM as we would be happy to assist. Today's vital signs, medications, and nursing notes were reviewed. BP 123/71 Pulse 69 Temp 98.6 ??F (37 ??C) (Tympanic) Resp 16 Wt 59 kg (130 lb) SpO2 93% BMI 22.14 kg/m?? A/P: # Congenital heart abnormalities s/p Fontan procedure, DORV, d-TGA # Pulmonary stenosis # LV Hypoplasia 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 Resumed on admission at appropriate frequency/doses. VSS. - Please notify IM if patient experiencing palpitations, syncope or chest pain Hx of R psoas hematoma. Holding coumadin. - Should follow up with hematology outpatient, as previously instructed, for future AC management Depression, SI. Management per primary team, psychiatry. Radha Weber PA-C Hospitalist Service Pager [phone] documented in this encounter ED Notes Gerald Chatman MD - 10/01/2018 9:13 AM CDT Sign out Provider: Mitch Sign out Plan: Patient was seen and evaluated on earlier shift. There was a plan to admit him to thesubacute unit. No beds available on the unit. Reassessment: No events overnight or on the shift. Mental health intake contacted me and I am informed that there will not be any subacute beds today. We discussed the possibility of admission to the young adult unit. This was also discussed with the patient's parents and we are all in agreement with admission to that unit. Disposition: Continue to hold in the ED until a bed is available. Likely admission to the adult unit. Gerald Chatman MD 10/01/18 0914 Lillie Hull RN - 10/01/2018 5:51 AM CDT ED to Behavioral Floor Handoff SITUATION Jude Bills is a 18 year old male who speaks Tuvaluan and lives in a home with family members The patient arrived in the ED by private car from home with a complaint of Depression (pt increasing ly depressed in last 2 weeks after revent hospitalization for heart issues. started lexapro 2 weeks ago pttoday sent texts to friends ) .The patient's current symptoms started/worsened 2 week(s) ago and during this time the symptoms have increased. In the ED, pt was diagnosed with Final diagnoses: Depression with suicidal ideation Initial vitals were: BP: 110/59 Pulse: 65 Temp: 98.7 ??F (37.1 ??C) Resp: 16 Weight: 59 kg (130 lb) SpO2: 97 % -------- Is the patient diabetic? No If yes, last blood glucose? -- If yes, was this treated in the ED? -- -------- Is the patient inebriated (ETOH) No or Impaired on other substances? No MSSA done? No Last MSSA score: -- Were withdrawal symptoms treated? N/A Does the patient have a seizure history? No. If yes, date of most recent seizure-- -------- Is the patient patient experiencing suicidal ideation? Yes plan to stab self or CO poisoning Homicidal ideation? denies current or recent homicidal ideation or behaviors. Self-injurious behavior/urges? denies current or recent self injurious behavior or ideation. ------ Was pt aggressive in the ED No Was a code called No Is the pt now cooperative? Yes ------- Meds given in ED: Medications - No data to display Family present during ED course? Yes Family currently present? No BACKGROUND Does the patient have a cognitive impairment or developmental disability? No Allergies: Allergies Allergen Reactions ??? Motrin [Ibuprofen] ??? Seasonal Allergies Itchy eyes, runny nose, hives when around tall grasses . Social demographics are Social History Socioeconomic History ??? Marital status: Single Spouse name: None ??? Number of children: None ??? Years of education: None ??? Highest education level: None Occupational History ??? None Social Needs ??? Financial resource strain: None ??? Food insecurity: Worry: None Inability: None ??? Transportation needs: Medical: None Non-medical: None Tobacco Use ??? Smoking status: Never Smoker ??? Smokeless tobacco: Never Used ??? Tobacco comment: none at home Substance and Sexual Activity ??? Alcohol use: No ??? Drug use: No ??? Sexual activity: Never Lifestyle ??? Physical activity: Days per week: None Minutes per session: None ??? Stress: None Relationships ??? Social connections: Talks on phone: None Gets together: None Attends sabianism service: None Active member of club or organization: None Attends meetings of clubs or organizations: None Relationship status: None ??? Intimate partner violence: Fear of current or ex partner: None Emotionally abused: None Physically abused: None Forced sexual activity: None Other Topics Concern ??? None Social History Narrative ??? None ASSESSMENT Labs results Labs Ordered and Resulted from Time of ED Arrival Up to the Time of Departure from the ED DRUG ABUSE SCREEN 6 CHEM DEP URINE ([facility]) Imaging Studies: No results found for this or any previous visit (from the past 24 hour(s)). Most recent vital signs BP 110/59 Pulse 65 Temp 98.7 ??F (37.1 ??C) (Oral) Resp 16 Wt 59 kg (130 lb) SpO2 97% BMI 22.14 kg/m?? Abnormal labs/tests/findings requiring intervention:--- Pain control: pt had none Nausea control: pt had none RECOMMENDATION Are any infection precautions needed (MRSA, VRE, etc.)? No If yes, what infection? -- --- Does the patient have mobility issues? independently. If yes, what device does the pt use? --- --- Is patient on 72 hour hold or commitment? No If on 72 hour hold, have hold and rights been given to patient? N/A Are admitting orders written if after 10 p.m. ?N/A Tasks needing to be completed:--- Latonia Hull, RN [phone] [facility] Marisabel Hills RN - 09/30/2018 10:30 PM CDT Mother is here with Pt, will be in room or in WR. Jean Claude Meyer MD - 09/30/2018 8:15 PM CDT History Chief Complaint Patient presents with ??? Depression pt increasing ly depressed in last 2 weeks after revent hospitalization for heart issues. started lexapro 2 weeks ago pt today sent texts to friends HPI Jude Bills is a 18 year old male with PMH notable for depression, congenital intestine/splenic deformities, who presents to the ED with depressed mood. Patient posted on [employer] that he was going to kill himself, which prompted a call to his mother by someone who saw the post. Patient has been seeing a therapist but has minimally been helping. Patient states he would not be safe at home, has planof stabbing himself or CO poisoning. Lexapro was started by his PCP 2 weeks ago, has not seen a psychiatrist. I have reviewed the Medications, Allergies, Past Medical and Surgical History, and Social History inthe Epic system. Review of Systems A complete review of systems was performed with pertinent positives and negatives noted in the HPI, and all other systems negative. Physical Exam BP: 110/59 Pulse: 65 Temp: 98.7 ??F (37.1 ??C) Resp: 16 Weight: 59 kg (130 lb) SpO2: 97 % Physical Exam General: No acute distress. Appears stated age. HENT: MMM, no oropharyngeal lesions Eyes: PERRL, normal sclerae Cardio: Regular rate, extremities well perfused Resp: Normal work of breathing, normal respiratory rate Neuro: alert and fully oriented. CN II-XII grossly intact. Grossly normal strength and sensation in all extremities. MSK: no deformities. Integumentary/Skin: no rash visualized, normal color Psych: flat affect, calm behavior in the ED. Active SI. Denies HI. No hallucinations. Thought process linear. Insight fair. ED Course Procedures Critical Care time: none Labs Ordered and Resulted from Time of ED Arrival Up to the Time of Departure from the ED DRUG ABUSE SCREEN 6 CHEM DEP URINE ([facility]) Assessments & Plan (with Medical Decision Making) Patient presenting with depression and suicidal ideation. Vitals in the ED wnl. DEC assessment completed with freelance director recommending admission. Patient with suicidal ideation with plan and not able to contract for safety. See separate DEC note for details on the assessment. The complete clinical picture is most consistent with depression with suicidal ideation. After counseling on the diagnosis, work-up, and treatment plan, the patient was admitted to behavioral health. Final diagnoses: Depression with suicidal ideation -- Jean Claude Meyer MD Emergency Medicine I have reviewed the nursing notes. I have reviewed the findings, diagnosis, plan and need for follow up with the patient. Current Discharge Medication List 09/30/2018 [facility], [place], EMERGENCY DEPARTMENT Jean Claude Meyer MD 10/01/18 0713 documented in this encounter Miscellaneous Notes Plan of Care - Dulce Farooq OT - 10/03/2018 1:01 PM CDT OT General Care Plan Pt attended 1 out of 3 OT groups offered. Pt participated in occupational therapy clinic. Pt required frequent encouragement and cues to identify goal- directed task. Pt demonstrated good focus, planning, and problem solving. Flat affect with minimal social interaction with peers. Plan of Care - Javi Herrera RN - 10/03/2018 11:35 AM CDT Discharge note Pt discharged to home at 1pm with follow up appointments to Individual Therapy and Medication Management, and a Day Treatment referral. All belongings returned to pt, including locker contents; no items sent to security. No discharge medications; pt will continue with home medications. Pt denies any MH sx at this time, including SI, SIB, hallucinations, anxiety and depression. Pt reports coping skills: talking to family and friends and playing video games. Pt is bright and mentioned wanting to work at [employer] in nursing or EMT. Pt was picked up by Mother. Plan of Care - Teena Estrada LMFT - 10/02/2018 2:39 PM CDT BEHAVIORAL TEAM DISCUSSION Participants: 4A Provider: Dr. Elvis Leong MD; 4A RN's: Frances Cheatham RN; 4A CTC's: Rica Estrada, (CTC). Progress: Continuing to Assess . Continued Stay Criteria/Rationale: New Patient. Medical/Physical: Deferred (see medical notes). Precautions: Behavioral Orders Procedures Code 1 - Restrict to Unit Routine Programming As clinically indicated Status 15 Every 15 minutes. Suicide precautions Patients on Suicide Precautions should have a Combination Diet ordered that includes a Diet selection(s) AND a Behavioral Tray selection for Safe Tray - with utensils, or Safe Tray - NO utensils Plan: CTC will meet with pt to complete psychosocial. CTC will plan and coordinate disposition and aftercare planning. The following services will be provided to the patient; psychiatric assessment, medication management, therapeutic milieu, individual and group support, art therapy, and skills/OT groups. Rationale for change in precautions or plan: No Change. Associated attestation - Elvis Leong MD - 10/03/2018 6:19 AM CDT I have reviewed and agree with the plan of care as written above. Plan of Care - Dulce Farooq OT - 10/02/2018 2:09 PM CDT Initial OT Note Pt attended 1 out of 3 OT groups offered. Pt quietly participated in a structured occupational therapy group with a focus on strength exploration and self-reflection for about 35 minutes (no charge). Pt demonstrated active listening and declined to share thoughts with the group. At times pt appeared di stracted; however, pt independently completed task. Provider Notification - Frances Cheatham RN - 10/02/2018 12:04 PM CDT Pt visible in milieu, yet reluctant to attend art group; given morning medications with prompting and discussion on being assertive, asking for things; accepting of orientation/reminders of unit guidelines and schedule/importance of participating even if he chooses individualized work, encouragement to complete personal care plan and given information on what to expect today; placed spiritual consultfor pt to have 1:1 emotional support, pt completes assignment on assertiveness and able to identify strengths, values and own skills that support his self worth; declines breakfast, but states he doesn't eat in am normally. Pt continues to deny any physical pain, SOB or heart palpitations and agrees to inform staff if have concerns. 10/02/18 1110 Vital Signs Temp 97.3 ??F (36.3 ??C) Temp src Tympanic Pulse 65 Pulse/Heart Rate Source Apical Sitting Orthostatic BP Sitting Orthostatic BP 128/67 Sitting Orthostatic Pulse 61 bpm Standing Orthostatic BP Standing Orthostatic BP 125/74 Standing Orthostatic Pulse 58 bpm Pain/Comfort Patient Currently in Pain denies Height and Weight Weight 60.5 kg (133 lb 6.1 oz) Plan of Care - Frances Cheatham RN - 10/01/2018 2:51 PM CDT RNADMIT/ Patient arrived to 10/01/2018 at 1400 . Patient expression is Appropriate/mood-congruent. Patient appears Appropriate to situation and is cooperative and pleasant. EPIC listed admitting DX: Depression with suicidal ideation [F32.9, R45.851 18 year old male voluntary admit to Young adult unit for depression and suicidal ideation and plan to stab self or carbon monoxide poisoning; unable to contract for safety at home. Hx of depression,ADHD and congenital anomalies of intestine and spleen, atrial tachycardia and hypoplastic left heartsyndrome; pt reports stressors relating to medical issues and inability to participate in sports; [facility]. Vital signs reviewed related to admission. BP 123/71 Pulse 69 Temp 98.6 ??F (37 ??C) (Tympanic) Resp 16 Wt 59 kg (130 lb) SpO2 93% BMI 22.14 kg/m?? . Patient denies pain. Pt endorses passive SI thoughts in general, I am not sure what to do, I cannot believe I am here inthe hospital Patient stated REASON for Admission : I have been depressed and now anxious. Pt denies any previous suicide attempts, no hallucinations, no family history of suicide; Patient stated GOALS for Discharge: to feel better and more worthy. Denies any chemical use, drug screen negative. Safety: S15 and suicide precautions. Illness Management Recovery model: Objectives Patient will identify reason(s) for hospitalization from their perspective. Patient will identify a minimum of three goals for discharge. Patient will identify a minimum of three triggers that may increase their symptoms. Patient will identify a minimum of three coping skills they can do to stay well. Patient will identify their support system to demonstrate readiness for discharge. Illness Management & Recovery will assist patient to develop relapse prevention as patient identifies triggers for relapse. patient identifies a general wellness strategy. patient identifies the warning signs that they are in danger of relapse. patient identifies someone they count on to get feedback . patient identifies ways to take action when in danger of relapse. patient identifies way to cope with stress or other symptoms. patient participates in self-reflection. 15 min checks initiated. Brief orientation to unit provided. PROVIDER: Daniel Nursing will continue to monitor. Pharmacy-Admission Medication History - Petty Guzman [facility] - 10/01/2018 1:31 PM CDT Admission Medication History status for the 09/30/2018 admission is complete. See [facility] admission navigator for Prior to Admission medications. Medication history sources: Patient, Sure Scripts, Care Everywhere, Chart Review Medication history source reliability: Good Medication adherence: Good Changes made to [employer] medication list (reason) Added: None Deleted: Bisacodyl supp, diazepam, morphine IR, morphine ER, Miralax, and Sennosides Changed: Omeprazole 20 mg bid--> daily Additional medication history information (including reliability of information, actions taken by pharmacist): -Pt recently tapered off narcotics, valium, and constipation medications after recent hospitalization. Time spent in this activity: 25 minutes Medication history completed by: Petty Guzman Prior to Admission medications Medication Sig Last Dose Taking? Auth Provider acetaminophen (TYLENOL) 500 MG tablet Take 500 mg by mouth every 8 hours as needed for mild pain 09/30/2018 at Unknown time Yes Unknown, Entered By History digoxin (LANOXIN) 250 MCG tablet Take 1 tablet (250 mcg) by mouth daily 10/01/2018 at Unknown time Yes Cordell Juarez MD Escitalopram Oxalate (LEXAPRO PO) Take 10 mg by mouth daily 10/01/2018 at Unknown time Yes Reported, Patient furosemide (LASIX) 20 MG tablet Take 0.5 tablets (10 mg) by mouth daily 10/01/2018 at Unknown time Yes Cordell Juarez MD metoprolol succinate ER (TOPROL-XL) 25 MG 24 hr tablet TAKE ONE TABLET BY MOUTH ONE TIME DAILY 10/01/2018 at Unknown time Yes Cordell Juarez MD montelukast (SINGULAIR) 10 MG tablet Take 10 mg by mouth At Bedtime Past Week at am Yes Unknown, Entered By History omeprazole (PRILOSEC) [address] capsule TAKE 1 CAPSULE BY MOUTH TWICE DAILY FOR ONE WEEK THEN ONCE DAILY Patient taking differently: Take 20 mg by mouth daily TAKE 1 CAPSULE BY MOUTH TWICE DAILY FOR ONE WEEK THEN ONCE DAILY 09/30/2018 at Unknown time Yes Cordell Juarez MD sildenafil (REVATIO) 20 MG tablet Take 1 tablet (20 mg) by mouth three times daily for pulmonary hypertension. Never use with nitroglycerin, terazosin or doxazosin. 10/01/2018 at Unknown time Yes Cordell Juarez MD spironolactone (ALDACTONE) 25 MG tablet Take 1 tablet (25 mg) by mouth daily 10/01/2018 at Unknown time Yes Cordell Juarez MD traZODone (DESYREL) 50 MG tablet Take 50 mg by mouth At Bedtime 09/29/2018 Yes Reported, Patient documented in this encounter Plan of Treatment Upcoming Encounters Date Type Specialty Care Team Description 07/27/2022 Ancillary Procedure Cardiology Cordell Juarez MD [id number] [place], [place] [id number] (Wo rk) 07/27/2022 Office Visit Cardiology Cordell Juarez MD [id number] [place], [place] [phone] (Wo rk) Scheduled Referrals Name Type Priority Associated Diagnoses Order S chedule BEHAVIORAL HEALTH Referral Routine Severe episode of Order ed: 10/02/2018 OUTPATIENT PROGRAM recurrent major depressive disorder, without psychotic features (H) documented as of this encounter Procedures Procedure Name Priority Date/Time Associated Comments Diagnosis CBC WITH PLATELETS & Routine 10/02/2018 7:41 AM Depression wit h Results for this DIFFERENTIAL CDT suicidal ideation procedure are in the results section. TSH WITH FREE T4 Routine 10/02/2018 7:41 AM Depression with Re sults for this REFLEX CDT suicidal ideation procedure are in the results section. LIPID PROFILE Routine 10/02/2018 7:41 AM Depression with Resul ts for this CDT suicidal ideation procedure are in the results section. COMPREHENSIVE Routine 10/02/2018 7:41 AM Depression with Resul ts for this METABOLIC PANEL CDT suicidal ideation procedu re are in the results section. DRUG ABUSE SCREEN 6 STAT 09/30/2018 8:53 PM Re sults for this CHEM DEP URINE ([facility]) CDT proced ure are in the results section. documented in this encounter Results TSH with free T4 reflex and/or T3 as indicated (10/02/2018 7:41 AM CDT) P athologist Signature TSH 2.27 0.40 - 4.00 10/02/2018 [facility] mU/L 8:34 AM CDT [facility] Specimen Anatomical Collection Method Collection Time Receive d Time (Source) Location / / Volume Laterality Blood specimen 10/02/2018 7:41 AM 019 8:05 (specimen) CDT AM CDT Yo Sanchez MD LAB - BLOOD ORDERABLES Performing Organization Address City/[facility]/ZIP Code Phon e Number [address] [address] [facility] (ABNORMAL) Lipid panel (10/02/2018 7:41 AM CDT) P athologist Signature Cholesterol 116 <170 mg/dL 10/02/2018 [facility] 8:26 AM CDT [facility] Triglycerides 103 (H) <90 mg/dL 10/02/2018 [facility] 8:26 AM CDT [facility] Comment: Borderline high: ??90-129 mg/dl High: ?>129 mg/dl HDL Cholesterol 42 (L) >45 mg/dL 10/02/2018 8:26 AM C DT [facility] Comment: Low: ? <40 mg/dl Borderline low: ?? 40-45 mg/dl LDL Cholesterol 53 <110 mg/dL 10/02/2018 8:26 AM CDT [facility] Non HDL Cholesterol 74 <120 mg/dL 10/02/2018 8:26 AM CDT [facility] Specimen Anatomical Collection Method Collection Time Receive d Time (Source) Location / / Volume Laterality Blood specimen 10/02/2018 7:41 AM 019 8:05 (specimen) CDT AM CDT Yo Sanchez MD LAB - BLOOD ORDERABLES Performing Organization Address City/[facility]/ZIP Code Phon e Number [address] [address] [facility] (ABNORMAL) Comprehensive metabolic panel (10/02/2018 7:41 AM CDT) Analysis Performed At Patho logist Time Signature Sodium 139 133 - 144 10/02/2018 [facility] mmol/L 8:17 AM CDT [facility] Potassium 3.8 3.4 - 5.3 10/02/2018 [facility] mmol/L 8:17 AM CDT [facility] Chloride 105 98 - 110 10/02/2018 [facility] mmol/L 8:17 AM CDT [facility] Carbon Dioxide 28 20 - 32 10/02/2018 [facility] mmol/L 8:25 AM [facility] Anion Gap 6 3 - 14 10/02/2018 [facility] mmol/L 8:25 AM [facility] Glucose 105 (H) 70 - 99 10/02/2018 [facility] mg/dL 8:25 AM [facility] Urea Nitrogen 19 7 - 21 10/02/2018 [facility] mg/dL 8:25 AM [facility] Creatinine 0.88 0.50 - 10/02/2018 [facility] 1.00 mg/dL 8:25 AM [facility] GFR Estimate >90 >60 10/02/2018 [facility] mL/min/{1. 8:25 AM [facility] 73_m2} [facility] Comment: Non GFR Calc Starting 06/03/2018, serum creatinine ba sed estimated GFR (eGFR) will be calculated using the Chronic Kidney Dise [facility] Epidemiology Collaboration (CKD-EPI) equation. GFR Estimate If >90 >60 mL/min/{1.73_m2} 10/02/2018 8: 25 AM [facility] Comment: GFR Calc Starting 06/03/2018, serum creatinine ba sed estimated GFR (eGFR) will be calculated using the Chronic Kidney Dise [facility] Epidemiology Collaboration (CKD-EPI) equation. Calcium 9.1 9.1 - 10.3 mg/dL 10/02/2018 8:25 AM [facility] Bilirubin Total 1.3 0.2 - 1.3 mg/dL 10/02/2018 8:26 AM [facility] Albumin 4.5 3.4 - 5.0 g/dL 10/02/2018 8:26 AM [facility] Protein Total 7.9 6.8 - 8.8 g/dL 10/02/2018 8:26 AM [facility] Alkaline Phosphatase 87 65 - 260 U/L 10/02/2018 8:26 AM [facility] ALT 22 0 - 50 U/L 10/02/2018 8:26 AM [facility] AST 17 0 - 35 U/L 10/02/2018 8:26 AM [facility] Specimen Anatomical Collection Method Collection Time Receive d Time (Source) Location / / Volume Laterality Blood specimen 10/02/2018 7:41 AM 019 8:05 (specimen) CDT AM CDT Yo Crispin Sanchez MD LAB - BLOOD ORDERABLES Performing Organization Address City/State/ZIP Code Phon e Number [facility] [address] [place] [address] [facility] CBC with platelets differential (10/02/2018 7:41 AM CDT) [facility] Method Time Signature WBC 5.2 4.0 - 10/02/2018 [facility] 11.0 8:15 AM CDT [facility] 10e9/L [facility] RBC Count 5.62 4.4 - 5.9 10/02/2018 [facility] 10e12/L 8:15 AM CDT [facility] Hemoglobin 16.4 13.3 - 10/02/2018 [facility] 17.7 g/dL 8:15 AM CDT [facility] Hematocrit 49.0 40.0 - 10/02/2018 [facility] 53.0 % 8:15 AM CDT [facility] MCV 87 78 - 100 10/02/2018 [facility] fl 8:15 AM CDT [facility] MCH 29.2 26.5 - 10/02/2018 [facility] 33.0 pg 8:15 AM CDT [facility] MCHC 33.5 31.5 - 10/02/2018 [facility] 36.5 g/dL 8:15 AM CDT [facility] RDW 13.0 10.0 - 10/02/2018 [facility] 15.0 % 8:15 AM CDT [facility] Platelet Count 174 150 - 450 10/02/2018 [facility] 10e9/L 8:15 AM CDT [facility] Diff Method Automated 10/02/2018 [facility] Method 8:15 AM CDT [facility] % Neutrophils 52.8 % 10/02/2018 [facility] 8:15 AM CDT [facility] % Lymphocytes 32.3 % 10/02/2018 [facility] 8:15 AM CDT [facility] % Monocytes 12.2 % 10/02/2018 [facility] 8:15 AM CDT [facility] % Eosinophils 1.9 % 10/02/2018 [facility] 8:15 AM CDT [facility] % Basophils 0.6 % 10/02/2018 [facility] 8:15 AM CDT [facility] % Immature 0.2 % 10/02/2018 [facility] Granulocytes 8:15 AM CDT [facility] Nucleated RBCs 0 0 /100 10/02/2018 [facility] 8:15 AM CDT [facility] Absolute 2.7 1.6 - 8.3 10/02/2018 [facility] Neutrophil 10e9/L 8:15 AM CDT [facility] Absolute 1.7 0.8 - 5.3 10/02/2018 [facility] Lymphocytes 10e9/L 8:15 AM CDT [facility] Absolute 0.6 0.0 - 1.3 10/02/2018 [facility] Monocytes 10e9/L 8:15 AM CDT [facility] Absolute 0.1 0.0 - 0.7 10/02/2018 [facility] Eosinophils 10e9/L 8:15 AM CDT [facility] Absolute 0.0 0.0 - 0.2 10/02/2018 [facility] Basophils 10e9/L 8:15 AM CDT [facility] Abs Immature 0.0 0 - 0.4 10/02/2018 [facility] Granulocytes 10e9/L 8:15 AM CDT [facility] Absolute 0.0 10/02/2018 [facility] Nucleated RBC 8:15 AM T [facility] Specimen Anatomical Collection Method Collection Time Receive d Time (Source) Location / / Volume Laterality Blood specimen 10/02/2018 7:41 AM 019 8:05 (specimen) CDT AM CDT Yo Crispin Sanchez MD LAB - BLOOD ORDERABLES Performing Organization Address City/State/ZIP Code Phon e Number [facility] [address] [place], [place] [id number] [place] [address] Drug abuse screen 6 urine (chem dep) (09/30/2018 8:53 PM CDT) [facility] Method Time Signature Amphetamine Qual Negative NEG^Negat 09/30/2018 [facility] O F Urine colleen 9:39 PM CDT [facility] Comment: Cutoff for a negative amphetami ne is 500 ng/mL or less. Barbiturates Qual Negative NEG^Negative 09/30/2018 9:38 PM [facility] Urine [facility] Comment: Cutoff for a negative barbitura te is 200 ng/mL or less. Benzodiazepine Qual Negative NEG^Negative 09/30/2018 9:38 P M [facility] Urine [facility] Comment: Cutoff for a negative benzodiaz epine is 200 ng/mL or less. Cannabinoids Qual Negative NEG^Negative 09/30/2018 9:39 PM [facility] Urine [facility] Comment: Cutoff for a negative cannabino id is 50 ng/mL or less. Cocaine Qual Urine Negative NEG^Negative 09/30/2018 9:39 PM [facility] Comment: Cutoff for a negative cocaine i s 300 ng/mL or less. Ethanol Qual Urine Negative NEG^Negative 09/30/2018 9:38 PM [facility] Comment: Cutoff for a negative urine eth anol is 0.05 g/dL or less Opiates Qualitative Negative NEG^Negative 09/30/2018 9:39 P M [facility] Comment: Cutoff for a negative opiate is 300 ng/mL or less. Specimen Anatomical Collection Method Collection Time Receive d Time (Source) Location / / Volume Laterality Urine specimen URINE SPECIMEN / 09/30/2018 8:53 PM 9:20 (specimen) Unknown CDT PM CDT Jean Claude Meyer MD LAB - URINE ORDERABLES Performing Organization Address City/State/ZIP Code Phon e Number [facility] [address] [place] [address] [facility] documented in this encounter Visit Diagnoses Diagnosis Severe episode of recurrent major depres sive disorder, without psychotic features (H) - Primary Depression with suicidal ideation Depressed Depressive disorder, not elsewhere class ified documented in this encounter Administered Medications Inactive Administered Medications - up to 3 most recent administrations Medication Order MAR Action Action Date Dose Rate Site digoxin (LANOXIN) tablet 250 mcg Given 10/01/2018 12:59 PM CDT 250 mcg 250 mcg, Oral, ONCE, On Sat10/01/18 at 1211, For 1 dose digoxin (LANOXIN) tablet 250 mcg Given 10/03/2018 8:59 AM CDT 250 mcg 250 mcg, Oral, DAILY, First dose on Sat10/02/18 at 0800 Given 10/02/2018 11:11 AM CDT 250 mcg escitalopram (LEXAPRO) tablet 10 mg Given 10/01/2018 1:00 PM CDT 10 mg 10 mg, Oral, ONCE, On Sat10/01/18 at 1211, For 1 dose escitalopram (LEXAPRO) tablet 10 mg Given 10/03/2018 8:59 AM CDT 10 mg 10 mg, Oral, DAILY, First dose on Sat10/02/18 at 0800 Given 10/02/2018 11:12 AM CDT 10 mg furosemide (LASIX) half-tab 10 mg Given 10/01/2018 1:01 PM CDT 10 mg 10 mg, Oral, ONCE, On Sat10/01/18 at 1211, For 1 dose furosemide (LASIX) half-tab 10 mg Given 10/03/2018 8:59 AM CDT 10 mg 10 mg, Oral, DAILY, First dose on Sat10/02/18 at 0800 Given 10/02/2018 11:13 AM CDT 10 mg metoprolol succinate ER (TOPROL-XL) 24 hr Given 10/01/2018 1:01 PM CDT 25 mg tablet 25 mg 25 mg, Oral, ONCE, On Sat10/01/18 at 1211, For 1 dose, DO NOT CRUSH. Tablet may be split in half along score line. metoprolol succinate ER (TOPROL-XL) 24 hr Given 10/03/2018 8:59 AM CDT 25 mg tablet 25 mg 25 mg, Oral, DAILY, First dose on Sat10/02/18 at 0800, DO NOT CRUSH. Tablet may be split in half along score line. Given 10/02/2018 11:12 AM CDT 25 mg montelukast (SINGULAIR) tablet 10 mg Given 10/02/2018 8:47 PM CDT 10 mg 10 mg, Oral, AT BEDTIME, First dose on Sat10/02/18 at 2200 OLANZapine (zyPREXA) injection 10 mg 10 mg, Intramuscular, EVERY 2 HOURS PRN, agitation, associated with psychosis or nuvia, Starting on Sat10/01/18 at 1422, Not to exceed 30 mg in 24 hours. Consider lower dose if sedation or hypotension. Dissolve the co ntents of the 10 mg vial using 2.1 mL of Sterile Water for Injection to provide a solution containing 5 mg/mL of olanzapine. Withdraw the ordere d dose from vial. Use immediately (within 1 hour) after reconstitution. Discard any unused portion . OLANZapine (zyPREXA) tablet 5-10 mg 5-10 mg, Oral, EVERY 2 HOURS PRN, agitat ion, associated with psychosis or nuvia, Starting on Sat10/01/18 at 1422, Conside r lower dose if sedation or hypotension. Not to exceed 30 mg in 24 hours. Combined IM and PO do ses may significantly increase the risk of orthostatic hypotension at 30 mg per day or higher. omeprazole (priLOSEC) CR capsule 20 mg Given 10/03/2018 8:59 AM CDT 20 mg 20 mg, Oral, DAILY, First dose on Sat10/02/18 at 0800 Given 10/02/2018 11:12 AM CDT 20 mg sildenafil (REVATIO) tablet 20 mg Given 10/01/2018 1:00 PM CDT 20 mg 20 mg, Oral, ONCE, On Sat10/01/18 at 1211, For 1 dose, Avoid taking with a fatty meal. sildenafil (REVATIO) tablet 20 mg Given 10/03/2018 8:59 AM CDT 20 mg 20 mg, Oral, 3 TIMES DAILY, First dose on Sat10/01/18 at 1445, If new prescription for the treatment of PH, insurance prior authorization is required before discharge. Given 10/02/2018 8:47 PM CDT 20 mg Given 10/02/2018 3:19 PM CDT 20 mg spironolactone (ALDACTONE) tablet 25 mg Given 10/01/2018 12:59 PM CDT 25 mg 25 mg, Oral, ONCE, On Sat10/01/18 at 1211, For 1 dose spironolactone (ALDACTONE) tablet 25 mg Given 10/03/2018 8:59 AM CDT 25 mg 25 mg, Oral, DAILY, First dose on Sat10/02/18 at 0800 Given 10/02/2018 11:12 AM CDT 25 mg traZODone (DESYREL) tablet 50 mg Given 10/02/2018 8:47 PM CDT 50 mg 50 mg, Oral, AT BEDTIME, First dose on Sat10/01/18 at 2200 Given 10/01/2018 10:20 PM CDT 50 mg documented in this encounter Active and Recently Administered Medications Times are shown in CDT. Scheduled Medication Order 10/01/2018 10/02/2018 10/03/2018 digoxin (LANOXIN) tablet 250 mcg (COMPLETED) 1259 (Giv en - Provider: Jarred Munoz RN) 250 mcg, Oral, ONCE, Sat10/01/18 at 1211, For 1 dose digoxin (LANOXIN) tablet 250 mcg 1111 (Given - P rovider: Frances Cheatham RN) 0859 (Given - Provider: Javi Herrera RN) 250 mcg, Oral, DAILY, First dose on Suze 10/02/18 at 0800 escitalopram (LEXAPRO) tablet 10 mg (COMPLETED) 1300 ( Given - Provider: Jarred Munoz RN) 10 mg, Oral, ONCE, Sat10/01/18 at 1211, For 1 dose escitalopram (LEXAPRO) tablet 10 mg 1112 (Given - Provider: Frances Cheatham RN) 0859 (Given - Provider: Javi Herrera RN) 10 mg, Oral, DAILY, First dose on Suze 10/02/18 at 0800 furosemide (LASIX) half-tab 10 mg (COMPLETED) 1301 (Gi eliot - Provider: Jarred Munoz RN) 10 mg, Oral, ONCE, Sat10/01/18 at 1211, For 1 dose furosemide (LASIX) half-tab 10 mg 1113 (Given - Provider: Frances Cheatham RN) 0859 (Given - Provider: Javi Herrera RN) 10 mg, Oral, DAILY, First dose on Suze 10/02/18 at 0800 metoprolol succinate ER (TOPROL-XL) 24 hr tablet 25 mg (COMPLETED) 1301 (Given - Provider: Jarred Munoz RN) 25 mg, Oral, ONCE, Sat10/01/18 at 1211, For 1 dose, DO NOT CRUSH. Tablet may be split in half along score line. metoprolol succinate ER (TOPROL-XL) 24 hr tablet 25 mg 1112 (Given - Provider: Frances Cheatham RN) 0859 (Given - Provider: Camille Hanson) 25 mg, Oral, DAILY, First dose on Suze at 0800, DO NOT CRUSH. Tablet may be split in half along score line. montelukast (SINGULAIR) tablet 10 mg 204 7 (Given - Provider: Tamara Tyson, BRIELLE)2200 (Canceled Entry - Provider: Tamara Tyson RN) 10 mg, Oral, AT BEDTIME, First dose on Sat10/02/18 at 2200 omeprazole (priLOSEC) CR capsule 20 mg 1 112 (Given - Provider: Frances Cheatham RN) 0859 (Given - Provider: Camille Hanson) 20 mg, Oral, DAILY, First dose on Sat10/02/18 at 0800 sildenafil (REVATIO) tablet 20 mg (COMPLETED) 1300 (Gi eliot - Provider: Jarred Munoz RN) 20 mg, Oral, ONCE, Sat10/01/18 at 1211, For 1 dose, Avoid taking with a fatty meal. sildenafil (REVATIO) tablet 20 mg 1432 (Not Given - Pr ovider: Trent Bridges RN - Reason: Contraindicated - Comment: given in the ED)2220 (Given - Provider: Sherie Restrepo RN) 1112 (Given - Provider: Camille Wheat)1519 (Given - Provider: Frances Cheatham RN)2047 (Given - Provider: Tamara Tyson RN) 0859 (Given - Provider: Javi Herrera RN)1400 (Canceled Entry - Provider: Orders Generic Provider - Comment: Automatically canceled at discontinue of medication order) 20 mg, Oral, 3 TIMES DAILY, First dose o n Sat10/01/18 at 1445, If new prescription for the treatment of PH, insurance prior authorization is required before discharge. spironolactone (ALDACTONE) tablet 25 mg (COMPLETED) 12 59 (Given - Provider: Jarred Munoz RN) 25 mg, Oral, ONCE, Sat10/01/18 at 1211, For 1 dose spironolactone (ALDACTONE) tablet 25 mg 1112 (Given - Provider: Frances Cheatham RN) 0859 (Given - Provider: Camille Hanson) 25 mg, Oral, DAILY, First dose on Suze 10/02/18 at 0800 traZODone (DESYREL) tablet 50 mg 2220 (Given - Provide r: Sherie Olmeod RN) 2046 (Given - Provider: Tamara Tyson RN )2200 (Canceled Entry - Provider: Tamara Tyson RN) 50 mg, Oral, AT BEDTIME, First dose on Sat10/01/18 at 2200 PRN Medication Order 10/01/2018 10/02/2018 10/03/2018 acetaminophen (TYLENOL) tablet 500 mg 500 mg, Oral, EVERY 8 HOURS PRN, mild pa in, Starting Sat10/01/18 at 1417, Maximum acetaminophen dose from all sources = 75 mg/kg/day not to exceed 4 gram alum & mag hydroxide-simethicone (MYLANTA ES/MAALOX ES) suspensi on 30 mL 30 mL, Oral, EVERY 4 HOURS PRN, indigest ion, Starting Sat10/01/18 at 1422, Shake well. bisacodyl (DULCOLAX) Suppository 10 mg 10 mg, Rectal, DAILY PRN, constipation, Starting Sat10/01/18 at 1422 hydrOXYzine (ATARAX) tablet 25 mg 25 mg, Oral, EVERY 4 HOURS PRN, anxiety, Starting Sat10/01/18 at 1419 magnesium hydroxide (MILK OF MAGNESIA) suspension 30 mL 30 mL, Oral, AT BEDTIME PRN, constipatio n, Starting Sat10/01/18 at 1422, Shake well. OLANZapine (zyPREXA) injection 10 mg(Linked Group 1) 10 mg, Intramuscular, EVERY 2 HOURS PRN, agitation, associated with psychosis or nuvia, Starting Sat10/01/18 at 1422, Not to exceed 30 mg in 24 hours. Consider lower dose if sedation or hypotension. Dis solve the contents of the 10 mg vial usi ng 2.1 mL of Sterile Water for Injection to provide a solution containing 5 mg/mL of olanzapine. Withdraw the ordered dose from vial. Use immediately (within 1 ho ur) after reconstitution. Discard any unused portion. OLANZapine (zyPREXA) tablet 5-10 mg(Linked Group 1) 5-10 mg, Oral, EVERY 2 HOURS PRN, agitat ion, associated with psychosis or nuvia, Starting Sat10/01/18 at 1422, Consider lower dose if sedation or hypotension. Not to exceed 30 mg in 24 hours. Combined I M and PO doses may significantly increas e the risk of orthostatic hypotension at 30 mg per day or higher. Linked Groups Order Group 1: OLANZapine (zyPREXA) tablet 5-10 mgJump to med 5-10 mg, Oral, EVERY 2 HOURS PRN, agitat ion, associated with psychosis or nuvia, Starting Sat10/01/18 at 1422
Consider lower dose if sedation or hypotension. Not to exceed 30 mg in 24 hours.&am p;nbsp;Combined IM and PO doses may sign ificantly increase the risk of orthostatic hypotension at 30 mg per day or higher.
Or OLANZapine (zyPREXA) injection 10 mgJump to med 10 mg, Intramuscular, EVERY 2 HOURS PRN, agitation, associated with psychosis or nuvia, Starting Sat10/01/18 at 1422
Not to exceed 30 mg in 24 hours. Consider lower dose if s edation or hypotension. Dissolve th e contents of the 10 mg vial using 2.1 mL of Sterile Water for Injection to provide a solution containing 5 mg/mL of olanzapine. Withdraw the ordered dose fro m vial. Use immediately (within 1 hour) after reconstitution. Discard any unused portion.
documented in this encounter Care Teams Diagnostic Technologist Relationship Specialty Start Date End Date Stephen Sauceda PCP - General Pediatrics 03/06/17 06/24/19 [facility] [address] [place] [address] documented as of this encounter
--- OUTSIDE RECORDS SUMMARY | 2022-04-10 09:56 | XMS_ITS | Encounter Summary ---
:2000 Author Organization [place] Address [facility] [place] [address] Care Team Providers Name Role Phone Stephen Sauceda Primary Care Provider Encounter Details Date Type Department Care Team Description 08/26/2018 Telephone [facility] Explorer Tylor Montes De Oca RN [facility] [address] [place], [place] [id number] [phone] Social History Tobacco Use Types Packs/Day Years Used Date Smoking Tobacco: Never Comments: none at home Alcohol Use Standard Drinks/Week Comments No 0 (1 standard drink = 0.6 oz pure alcoho l) Sex Assigned at Date Recorded Male 03/09/2019 1:21 PM CDT documented as of this encounter Miscellaneous Notes Telephone Encounter - Kirsten Montes De Oca RN - 08/26/2018 9:15 AM CDT Jaimie called to state Jude has a significant hematoma in his hip flexor muscle and it extends into his abdomen, This started last , Jude was seen in the emergency room on Saturday and Saturday in [place]. They are treating him with rest and pain medications. Jude was seen in follow up yesterday with Dr. Lionel Rubalcava out of [place]. A CT was completed andCarol was provided it I unchanged from Saturday CT. Dr. Juarez notified, she will contact Dr. Rubalcava and recommends frequent imaging and holding coumadinuntil this hematoma is resolved. Jaimie updated and will hold coumadin and await a callback from keno writer / runner or Dr Juarez for additional plan. Jaimie did state her 24 year old daughter remains at home with Jude, and he will have family with him during recovery. documented in this encounter Plan of Treatment Upcoming Encounters Date Type Specialty Care Team Description 07/27/2022 Ancillary Procedure Cardiology Cordell Juarez MD [address] [facility] [place] [address] (Wo rk) 07/27/2022 Office Visit Cardiology Cordell Juarez MD [address] [facility] [address] [place] [address] (Wo rk) documented as of this encounter Visit Diagnoses Not on filedocumented in this encounter Care Teams Sterilizer Machine Operator Relationship Specialty Start Date End Date Stephen Sauceda PCP - General Pediatrics 03/06/17 06/24/19 [facility] [address] [place] [address] documented as of this encounter
--- OUTSIDE RECORDS SUMMARY | 2022-04-10 09:56 | XMS_ITS | Encounter Summary ---
:2000 Author Organization [place] Address [address] [facility] [place] [address] Care Team Providers Name Role Phone KomalStehpen Primary Care Provider Reason for Visit Reason Onset Date Comments Prior Auth - Medication 09/08/2018 Morphine sulfate er 15mg Encounter Details Date Type Department Care Team Description 09/08/2018 Telephone [facility] [place] Prior Auth - Medication [facility] [facility] ([place] [address] 15mg) [phone] [place] [address] Social History Tobacco Use Types Packs/Day [...] Ancillary Procedure Cardiology Cordell Juarez MD [address] [place] [address] (Wo rk) 07/27/2022 Office Visit Cardiology Cordell Juarez MD [address] [facility] [place] [address] (Wo rk) documented as of this encounter Visit Diagnoses Not on filedocumented in this encounter Care Teams Commercial Fisher Relationship Specialty Start Date End Date Stephen Sauceda PCP - General Pediatrics 03/06/17 06/24/19 [facility] [address] [place] [address] documented as of this encounter
--- OUTSIDE RECORDS SUMMARY | 2022-04-10 09:56 | XMS_ITS | Encounter Summary ---
:2000 Author Organization [place] Address [facility] [place] [address] Care Team Providers Name Role Phone Stephen Sauceda Primary Care Provider Encounter Details Date Type Department Care Team Description 09/08/2018 Travel Social History Tobacco Use Types Packs/Day [...] 07/27/2022 Ancillary Procedure Cardiology Cordell Juarez MD [address] [place] [address] (Wo rk) 07/27/2022 Office Visit Cardiology Cordell Juarez MD [address] [place] [id number] (Wo rk) documented as of this encounter Visit Diagnoses Not on filedocumented in this encounter Care Teams Barrel Reamer Relationship Specialty Start Date End Date Stephen Sauceda PCP - General Pediatrics 03/06/17 06/24/19 [facility] [address] [place] [address] documented as of this encounter
--- OUTSIDE RECORDS SUMMARY | 2022-04-10 09:56 | XMS_ITS | Encounter Summary ---
:2000 Author Organization [place] Address [address] [facility] [place] [address] Care Team Providers Name Role Phone Stephen [...] 48HR TO 21 DAY REVIEW AND INTERPRETATN [facility]0 [facility] [place], [place] [address] Referral ID Status Reason Start Date Expiration Date Visits Requ ested Visits Authorized [id number] Closed 10/10/2018 10/10/2019 1 1 Consultation - Closed Specialty Diagnoses / Procedures Referred By Contact Refer red To Contact Diagnoses S/P Fontan procedure Cordell Juarez MD [address] [facility] [address] [place], [place] [address] Referral ID Status Reason Start Date Expiration Date Visits Requ ested Visits Authorized [id number] Closed 09/10/2018 09/10/2019 1 1 Reason for Visit Reason Comments RECHECK Atrial tachycardia Encounter Details Date Type Department Care Team Description 09/10/2018 Office Visit [facility] Cordell Juarez, S/P Fontan procedure Pediatric Specialty MD (Primary Dx) [address] [facility] [place] [id number] [phone] Social History Tobacco Use Types Packs/Day Years Used Date Smoking Tobacco: Never Comments: none at home Alcohol Use Standard Drinks/Week Comments No 0 (1 standard drink = 0.6 oz pure alcoho l) Sex Assigned at Date Recorded Male 03/09/2019 1:21 PM CDT documented as of this encounter Last Filed Vital Signs Vital Sign Reading Time Taken Comments Blood Pressure 105/48 09/10/2018 12:01 PM CDT Pulse 70 09/10/2018 12:01 PM CDT Temperature - - Respiratory Rate 24 09/10/2018 12:01 PM CDT Oxygen Saturation 96% 09/10/2018 12:01 PM CDT Inhaled Oxygen Concentration - - Weight 63.8 kg (140 lb 10.5 oz) 09/10/2018 12:01 PM CDT Height 163.2 cm (5' 4.25) 09/10/2018 12:01 PM CDT Body Mass Index 23.95 09/10/2018 12:01 PM CDT Body Mass Index Percentile 69.90 % 09/10/2018 12:01 PM CDT Growth Chart: CDC (Boys, 2-20 Years) documented in this encounter Patient Instructions Patient InstructionsLohr, Cordell Barajas MD - 09/10/2018 12:30 PM CDT You were seen today in the Pediatric Cardiology Clinic Cardiology Providers you saw during your visit: Cordell Juarez MD Chief Complaint: S/p fontan with heterotaxy - recent illiopsoas hematoma while on coumadin Results: DOing better , no cardiac complaints, weaning off pain meds. Will start PT shortly Recommendations: One week zio patch Holter when back to normal activities- call [facility] to send out when ready - [phone] Schedule hematology consult with Dr. Yoder for eval for multiple bleeding episodes. Future anticoagulation plan. SBE prophylaxis: Yes_X__ No____ Exercise restrictions: Yes__X_ No____ If yes list restrictions: No exertion for a minimum of 2 weeksand then resume gradually with guidance from PT. No heavy weight lifting. No driving while on pain medications. Work restrictions: Yes___ No____ If yes list restrictions: Follow-up: December with labs echo and ECG. Thank you for your visit today. If you have questions about today's visit, please call [facility] at [phone] or [facility] Nurse Line [phone] For after hours urgent needs call [phone] and ask to speak to the Pediatric Cardiology Physician occupational therapist per diem. For emergencies call [phone]. documented in this encounter Progress Notes Cordell Juarez MD - 09/10/2018 12:30 PM CDT Pediatric Cardiology Visit Patient: Jude Bills Date of : 2000 Age: 16 years 7 months Date of Visit: Sep 10, 2018 PCP: Ana Li [place] Dear Dr. Winchester, I had the pleasure of seeing your patient, Jude Bills, in the Pediatric Cardiology Clinic at [facility] on Sep 10, 2018. 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 He underwent a central shunt, followed by a Fortino procedure and completion of a Fontan procedure at the [facility] in [place] public defender. He had catheter closure of his Fontan fenestration at the [facility] in January 2007. Jude has had some episodes of atrial tachycardiathat improved on metoprolol. His recent chest pain, swelling, and exercise intolerance improved on lasix, sildenafil and omeprazole. He was diagnosed with a right psoas hematoma for which he has been holding his warfarin. He was admitted from 08/30 through 09/05/18. Currently, he and his mother report his pain has been improving and that they have been weaning his pain medication. He will go back to school tomorrow. Jude reports that the episodes of chest pain and palpitations have been better as he feels occasional chest pain and it seems related to reflux. He also states that his exercise tolerance had been muchbetter prior to the myohematoma, getting almost back [...] has an IEP. Planning on going to [employer] school after. Prescription Medications as of 09/11/2018 Rx Number Disp Refills Start End Last Dispensed Date Next Fill Date Owning Pharmacy acetaminophen (TYLENOL) 500 MG tablet 60 tablet 1 09/04/2018 [facility] [address] Sig: Take 1 tablet (500 mg) by mouth every 4 hours Class: E-Prescribe Route: Oral bisacodyl (DULCOLAX) 10 MG suppository 6 suppository 0 09/08/2018 [facility] [address] [place] [address] 3 Sig: Place 1 suppository (10 mg) rectally daily as needed for constipation Class: E-Prescribe Route: Rectal diazepam (VALIUM) 1 MG/ML solution 14 mL 0 09/04/2018 [facility] [address] Sig: Take 0.5-1 mLs (0.5-1 mg) by mouth every 6 hours as needed for muscle spasms or pain Class: Local Print Route: Oral digoxin (LANOXIN) 250 MCG tablet 30 tablet 11 11/30/2017 [facility] [address] [place] [address] 3 Sig: Take 1 tablet (250 mcg) by mouth daily Class: E-Prescribe Route: Oral furosemide (LASIX) 20 MG tablet 15 tablet 2 06/19/2018 [facility] [address] [place] [address] 3 Sig: Take 0.5 tablets (10 mg) by mouth daily Class: E-Prescribe Route: Oral metoprolol succinate ER (TOPROL-XL) 25 MG 24 hr tablet 30 tablet 2 06/19/2018 [facility] [address] [place] [address] 3 Sig: TAKE ONE TABLET BY MOUTH ONE TIME DAILY Class: E-Prescribe montelukast (SINGULAIR) 10 MG tablet 08/28/2018 Sig: Take 10 mg by mouth At Bedtime Class: Historical Route: Oral morphine (MS CONTIN) 15 MG CR tablet 28 tablet 0 09/11/2018 [facility] [address] [place] [address] 3 Sig: Take 1 tablet (15 mg) by mouth every 12 hours As tolerated, decrease to15 mg at bedtime for atleast two days, then stop extended-release morphine, continuing as needed morphine only Class: Local Print Earliest Fill Date: 09/11/2018 Route: Oral morphine (MSIR) 15 MG IR tablet 15 tablet 0 09/04/2018 [facility] [address] Sig: Take 0.5 tablets (7.5 mg) by mouth every 4 hours as needed for moderate to severe pain or breakthrough pain Class: Local Print Earliest Fill Date: 09/04/2018 Route: Oral omeprazole (PRILOSEC) [address] capsule 30 capsule 2 09/09/2018 [facility] [address] [place] [address] 3 Sig: TAKE 1 CAPSULE BY MOUTH TWICE DAILY FOR ONE WEEK THEN ONCE DAILY Class: E-Prescribe polyethylene glycol (MIRALAX/GLYCOLAX) packet 1000 g 1 09/08/2018 [facility] [address] [place] [address] Sig: Take 17 g by mouth 2 times daily Hold morning dose if liquid bowel movements Class: E-Prescribe Route: Oral sennosides (SENOKOT) 8.6 MG tablet 30 tablet 0 09/04/2018 [facility] [address] Sig: Take 1 tablet by mouth 2 times daily Class: E-Prescribe Route: Oral sildenafil (REVATIO) 20 MG tablet 90 tablet 11 06/21/2017 [facility] [address] 3 Sig: Take 1 tablet (20 mg) by mouth three times daily for pulmonary hypertension. Never use with nitroglycerin, terazosin or doxazosin. Class: E-Prescribe spironolactone (ALDACTONE) 25 MG tablet 30 tablet 11 09/25/2017 [facility] [address] 3 Sig: Take 1 tablet (25 mg) by mouth daily Class: E-Prescribe Route: Oral Taking 20 mg lasix daily FH/SH: Jude and his family live in [place]. His mother is a nurse at [employer]. They are planning lots of travel this summer. He will be starting his senior year next fall. His height is 1.632 m (5' 4.25) and weight is 63.8 kg (140 lb 10.5 oz). His blood pressure is 105/48 and his pulse is 70. His respiration is 24 and oxygen saturation is 96%. His body mass index is 23.95 kg/m??. His body surface area is 1.7 meters squared. In general, he is a very well-appearing youngman with no central or peripheral cyanosis. Head [...] border, and no rubs, gallops or diastolic murmurs.Abdominal examination is benign with no hepatosplenomegaly or masses. Radial and femoral pulses are normal and extremities are warm and well perfused with trace edema and good capillary refill, there is greenish/yellowish discoloration over right groin area. Climbs examination table using his right leg. He is oriented and responsive. He moves all extremities equally with normal tone. Zio 03/13/17- Atrial tach at 167 bpm. Symptoms were with PAC's or sinus rhythm. Discussed with EP (Henry) she recommended continue anticoagulation with warfarin and continue to monitor. Repeat EP study if worsening symptoms. Zio 06/24/17 - NSR with average HR 65 (35-166). Rare single ectopic beats. No block or tachyarrhythmias. Labs: Cath Data 01/2016: Fontan pressures 14 [...] activity level. Sincerely, Sterling Rivers MD Pediatric In Store Marketing Representative [facility] Jude has been on anticoagulation with warfarin [...] time of this visit. Cordell Juarez M.D. Preparole Counseling Aide of Pediatrics Pediatric and Adult Congenital Cardiology [facility] Pediatric Cardiology Office [phone] Adult Congenital Cardiology Triage and Scheduling [phone] documented in this encounter Nursing Notes Kim Summers MA - 09/10/2018 12:30 PM CDT Informant- Jude is accompanied by both parents Reason for Visit- blood in scrotum from hematoma Vitals signs- BP 105/48 Pulse 70 Resp 24 Ht 1.632 m (5' 4.25) Wt 63.8 kg (140 lb 10.5 oz) SpO2 96% BMI 23.95 kg/m?? There are concerns about the child's exposure to violence in the home: No Face to Face time: 5 minutes Kim Summers MA documented in this encounter Plan of Treatment Upcoming Encounters Date Type Specialty Care Team Description 07/27/2022 Ancillary Procedure Cardiology Cordell Juarez MD [address] [place] [address] (Wo rk) 07/27/2022 Office Visit Cardiology Cordell Juarez MD [address] [place] [address] (Wo rk) Scheduled Referrals Name Type Priority Associated Diagnoses Order S chedule ONC/HEME PEDS REFERRAL Referral Routine S/P Fontan procedu re Ordered: 09/10/2018 documented as of this encounter Results Zio Patch Holter Adult [...] status documented in this encounter Care Teams Baccarat Dealer Relationship Specialty Start Date End Date Stephen Sauceda PCP - General Pediatrics 03/06/17 06/24/19 [facility] [address] [place] [address] documented as of this encounter
--- OUTSIDE RECORDS SUMMARY | 2022-04-10 09:56 | XMS_ITS | Encounter Summary ---
:2000 Author Organization [place] Address [facility] [place] [address] Care Team Providers Name Role Phone Stephen Sauceda Primary Care Provider Reason for Visit Reason Comments Medication Refill Encounter Details Date Type Department Care Team Description 08/22/2018 Refill [facility] Cordell Juarez MD Medication Refill Explorer Pediatric [facility] [address] [place] [address] [place] [address] [place] [address] Social History Tobacco Use Types [...] Ancillary Procedure Cardiology Cordell Juarez MD [address] [facility] [place] [address] (Wo rk) 07/27/2022 Office Visit Cardiology LarryCordell MD [address] [facility] [place] [address] (Wo rk) documented as of this encounter Visit Diagnoses Diagnosis Chest pain, unspecified type documented in this encounter Care Teams Credit Associate Relationship Specialty Start Date End Date Stephen Sauceda PCP - General Pediatrics 03/06/17 06/24/19 [facility] [address] [place] [address] documented as of this encounter
--- OUTSIDE RECORDS SUMMARY | 2022-04-10 09:56 | XMS_ITS | Encounter Summary ---
:2000 Author Organization [place] Address [address] [facility] [place] [address] Care Team Providers Name Role Phone KomalStephen Primary Care Provider Reason for Visit Reason Onset Date Comments Prior Auth - Medication 09/05/2018 [facility] 15MG E R Encounter Details Date Type Department Care Team Description 09/05/2018 Telephone [facility] Abi Zaldivar Prior Auth - 2451 YAMILET Bush MD Medication ([place] [address] [address] 15MG ER) [phone] [place], [place] [id number] (Wo rk) Social History Tobacco Use Types [...] Ancillary Procedure Cardiology Larry, Cordell Barajas MD [address] [place], [place] [id number] (Wo rk) 07/27/2022 Office Visit Cardiology Cordell Juarez MD [address] [place] [address] (Wo rk) documented as of this encounter Visit Diagnoses Not on filedocumented in this encounter Care Teams Bridge Welder Relationship Specialty Start Date End Date Stephen Sauceda PCP - General Pediatrics 03/06/17 06/24/19 [facility] [address] [place] [address] documented as of this encounter
--- OUTSIDE RECORDS SUMMARY | 2022-04-10 09:56 | XMS_ITS | Encounter Summary ---
:2000 Author Organization [place] Address [facility] [place] [address] Care Team Providers Name Role Phone Stephen Sauceda Primary Care Provider Reason for Visit Reason Comments Medication Refill Encounter Details Date Type Department Care Team Description 09/09/2018 Refill [facility] Cordell Juarez MD Medication Refill Explorer Pediatric [facility] [address] [facility] [address] [place] [address] [place] [address] [place] [address] Social History Tobacco Use Types [...] Ancillary Procedure Cardiology Cordell Juarez MD [address] [facility] [place] [address] (Wo rk) 07/27/2022 Office Visit Cardiology LarryCordell MD [address] [facility] [place] [address] (Wo rk) documented as of this encounter Visit Diagnoses Diagnosis Chest pain, unspecified type documented in this encounter Care Teams Butcher Or Smallgoods Maker Relationship Specialty Start Date End Date Stephen Sauceda PCP - General Pediatrics 03/06/17 06/24/19 [facility] [address] [place] [address] documented as of this encounter
--- OUTSIDE RECORDS SUMMARY | 2022-04-10 09:56 | XMS_ITS | Encounter Summary ---
:2000 Author Organization [place] Address [facility] [place] [address] Care Team Providers Name Role Phone Stephen Sauceda Primary Care Provider Reason for Visit Reason Comments Consult blood in scrotum from hemato ma Encounter Details Date Type Department Care Team Description 09/10/2018 [facility] Pediatric Specialty MD (Primary Dx) Clinic [address] [facility] [address] [place] [address] [phone] Social History Tobacco Use Types Packs/Day Years Used Date Smoking Tobacco: Never Comments: none at home Alcohol Use Standard Drinks/Week Comments No 0 (1 standard drink = 0.6 oz pure alcoho l) Sex Assigned at Date Recorded Male 03/09/2019 1:21 PM CDT documented as of this encounter Last Filed Vital Signs Vital Sign Reading Time Taken Comments Blood Pressure 105/48 09/10/2018 11:59 AM CDT Pulse 70 09/10/2018 11:59 AM CDT Temperature - - Respiratory Rate - - Oxygen Saturation - - Inhaled Oxygen Concentration - - Weight 63.8 kg (140 lb 10.5 oz) 09/10/2018 11:59 AM CDT Height 163.2 cm (5' 4.25) 09/10/2018 11:59 AM CDT Body Mass Index 23.95 09/10/2018 11:59 AM CDT Body Mass Index Percentile 69.90 % 09/10/2018 11:59 AM CDT Growth Chart: [facility] (Boys, 2-20 Years) documented in this encounter Progress Notes Faby Bell MD - 09/10/2018 12:10 PM CDT Stephen Sauceda [facility] [address] [facility] [address] RE: Jude Bills : 2000 [place] Date of visit: September 10, [address] Sauceda: I had the pleasure of seeing your patient, Jude, today through the [facility] in urology consultation, requested by Dr. Cordell Juarez, for the question of scrotal pain. Please see below the details of this visit and my impression and plans discussed with thefamily. CC: scrotal pain HPI: Jude Bills is a 18 year old child whom I was asked to see in consultation by Dr. Juarez for the above. He was recently hospitalized on 08/30/18 for a hematoma around his right psoas muscle noted after weight-lifting. This bleeding extended down into his penoscrotal region. He was having dysuria as well as difficulty with finding scrotal comfort, hence, Dr. Juarez suggested a concurrent urology visit with his planned cardiology visit today. Since his hospitalization, his dysuria has resolved. The scrotal pain has also gone away. He still has ongoing right lower quadrant pain, but only with standing up and moving around. He's now wearing compression shorts to help manage his pain. PMH: Past Medical History: Diagnosis Date ??? 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 Congenital anomalies of spleen Polysplenia ??? Esophageal reflux ??? 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 [...] Surgeon: Akash Graves MD; Location: [facility] OR Meds, allergies, family history, social history reviewed per intake form and confirmed in our EMR. ROS: Negative on a 12-point scale. All other pertinent positives mentioned in the HPI. PE: Blood pressure 105/48, pulse 70, height 1.632 m (5' 4.25), weight 63.8 kg (140 lb 10.5 oz). Body mass index is 23.95 kg/m??. General: Well-appearing child, in no apparent distress. HEENT: Normocephalic, normal facies Resp: Symmetric chest wall movement, no audible respirations Abd: Soft, non-tender, non-distended, no palpable masses, scars consistent with previous surgeries, RLQ superficial ecchymosis still present and tender Genitalia: Circumcised phallus, no adhesions, no ecchymosis, scrotum symmetric with both testis downand no specific tenderness, no masses, no ecchymosis Spine: Straight, no palpable sacral defects Neuromuscular: Muscles symmetrically bulked/developed Ext: Full range of motion Skin: Warm, well-perfused Impression: History of penoscrotal tracking of hematoma causing scrotal pain and dysuria, which is now improving with time. Plan: No reason for urology intervention or concern at this point. Thank you very much for allowing me the opportunity to participate in this nice family's care with you. Sincerely, Faby Bell MD Pediatric Urology, [facility] Office phone documented in this encounter Nursing Notes Kim Summers MA - 09/10/2018 12:10 PM CDT Informant- Jude is accompanied by both parents Reason for Visit- blood in scrotum from hematoma Vitals signs- BP 105/48 Pulse 70 Ht 1.632 m (5' 4.25) Wt 63.8 kg (140 lb 10.5 oz) BMI 23.95 kg/m?? There are concerns about the child's exposure to violence in the home: No Face to Face time: 5 minutes Kim Summers MA documented in this encounter Plan of Treatment Upcoming Encounters Date Type Specialty Care Team Description 07/27/2022 Ancillary Procedure Cardiology Cordell Juarez MD [address] [place] [address] (Wo rk) 07/27/2022 Office Visit Cardiology Cordell Juarez MD [address] [address] (Wo rk) documented as of this encounter Visit Diagnoses Diagnosis Bilateral groin pain - Primary Abdominal pain, unspecified site documented in this encounter Care Teams Call Center Manager Relationship Specialty Start Date End Date Stephen Sauceda PCP - General Pediatrics 03/06/17 06/24/19 [facility] [address] [place] [address] documented as of this encounter
--- OUTSIDE RECORDS SUMMARY | 2022-04-10 09:56 | XMS_ITS | Encounter Summary ---
:2000 Author Organization [place] Address [facility] [place] [address] Care Team Providers Name Role Phone KomalStephen Primary Care Provider [facility] Primary Care Provider [phone] Magnus Zayas DO Primary Care Provider [phone] Magnus Zayas DO Unavailable [phone] Celeste Scales MD Unavailable Magnus Zayas DO Unavailable [phone] Magda Winchester MD Primary Care Provider Reason for Visit Reason Onset Date Comments Outpatient 10/02/2018 4A to IOP [facility] Encounter Details Date Type Department Care Team Description 10/02/2018 Telephone [facility] Fawn Meyer, Behavioral Outpatient (4A to Behavioral Health MD AUDIE Estrada) Intake [address] [place] [address] Social History Tobacco Use Types Packs/Day Years Used Date Smoking Tobacco: Never Smokeless Tobacco: Never Comments: none at home Alcohol Use Standard Drinks/Week Comments No 0 (1 standard drink = 0.6 oz pure alcoho l) Sex Assigned at Date Recorded Male 03/09/2019 1:21 PM CDT documented as of this encounter Miscellaneous Notes Telephone Encounter - AlicjaleighLilly - 10/02/2018 1:48 PM CDT S-Pt is referred by Dr Leong from to [facility] B-Intake admit note: Hx depression, ADHD, congenital anomalies of intestine and spleen, atrial tachycardia, hypoplastic left heart syndrome. Coal Briquette Machine Operator reported some cognitive issues but noted they are not significant. Pt reported being depressed for several years. Pt meets with a therapist but did notdisclose his depression. Depression increased two weeks ago and was started on Lexapro at that time.Last night, pt posted suicidal messages on [employer] that were reported to his mother. Pt unable to contract for safety at home and said he has a plan of stabbing himself or poisoning by carbon monoxide. Denies aggression, HI, hallucinations, delusions or substance abuse. Stressors relating to his medical issues and not being able to participate in sports because of it. DEC funeral service licensee recommends admission to subacute. They are full so pt went to [facility]. A-BX ins. R-Ref made to IOP documented in this encounter Plan of Treatment Upcoming Encounters Date Type Specialty Care Team Description 07/27/2022 Ancillary Procedure Cardiology Cordell Juarez MD [address] [place] [address] (Arleen valdes) 07/27/2022 Office Visit Cardiology Cordell Juarez MD [address] [place] [address] (Arleen valdes) documented as of this encounter Visit Diagnoses Not on filedocumented in this encounter Additional Health Concerns Infection Onset Date Last Indicated Resolved Time Rule Out COVID-19 12/18/2019 12/18/2019 12/19/2019 3:4 2 PM CDT Rule Out COVID-19 12/21/2019 12/21/2019 12/22/2019 2:3 2 AM CDT documented as of this encounter Care Teams Agronomy Technician Relationship Specialty Start Date End Date Stephen Sauceda PCP - General Pediatrics 03/06/17 06/24/[address] [address] Clinic, [facility] PCP - General 06/25/19 02/22/20 [address] [place] [address] Magnus Zayas, PCP - General Student in [facility] 02/23/20 09/17/[address] education/training program [address] [place] [address] Magda Winchester PCP - General Family Medicine 09/18/21 MD Sahara Magnus Zayas, Assigned PCP 02/28/2004/[address] [id number] Celeste Scales MD Assigned PCP 11/10/20 11/19/[address] [place] [id number] Magnus Zayas, Assigned PCP 11/20/[address] [address] documented as of this encounter
--- OUTSIDE RECORDS SUMMARY | 2022-04-10 09:56 | XMS_ITS | Encounter Summary ---
:2000 Author Organization [place] Address [facility] [place] [address] Care Team Providers Name Role Phone KomalStephen Primary Care Provider [facility] Primary Care Provider Magnus Zayas DO Primary Care Provider [phone] Magnus Zayas DO Unavailable [phone] Celeste Scales MD Unavailable Magnus Zayas DO Unavailable [phone] Magda Winchester MD Primary Care Provider Reason for Visit Reason Comments Medication Refill Encounter Details Date Type Department Care Team Description 07/02/2018 Refill [facility] Specialty Care [address] Juarez MD Medication Refill Center [facility]0 [facility] [address] [address] [place] [address] [address] [place] [address] [phone] Social History Tobacco Use Types Packs/Day Years [...] Juarez MD [address] [place], [place] [address] (Wo rk) 07/27/2022 Office Visit Cardiology Cordell Juarez MD [address] [place], [place] [address] (Wo rk) documented as of this encounter 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 documented in this encounter Additional Health Concerns Infection Onset Date Last Indicated Resolved Time Rule Out COVID-19 12/18/2019 12/18/2019 12/19/2019 3:4 2 PM CDT Rule Out COVID-19 12/21/2019 12/21/2019 12/22/2019 2:3 2 AM CDT documented as of this encounter Care Teams Information Management Manager Relationship Specialty Start Date End Date Stephen Sauceda PCP - General Pediatrics 03/06/17 06/24/19 [facility] [address] [place] [address] [facility] PCP - General 06/25/19 02/22/[address] [place] [address] Magnus Zayas, PCP - General Student in organized 02/23/20 09/17/[address] education/training program [address] [place] [address] Magda Winchester PCP - General Family Medicine 09/18/21 MD Sahara Magnus Zayas, Assigned PCP 02/28/2004/[address] [address] Celeste Scales MD Assigned PCP 11/10/20 11/19/[address] [address] Magnus Zayas, Assigned PCP 11/20/[address] [id number] documented as of this encounter
--- OUTSIDE RECORDS SUMMARY | 2022-04-10 09:56 | XMS_ITS | Encounter Summary ---
:2000 Author Organization [place] Address [address] [place] [address]. [place] [address] Care Team Providers Name Role Phone Stephen Sauceda Primary Care Provider Reason for Visit Reason Comments Medication Refill Encounter Details Date Type Department Care Team Description 09/17/2018 Refill [facility] Specialty Care [address] Juarez MD Medication Refill Center [address] [place] [address] [place] [address] [address] [place] [address] [phone] Social History Tobacco Use Types Packs/Day Years [...] 07/27/2022 Ancillary Procedure Cardiology Cordell Juarez MD [address] [place], [place] [address] [place] [address] (Wo rk) 07/27/2022 Office Visit Cardiology Larry, Cordell skelton MD [address] [place] [address] (Wo rk) documented as of this encounter 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 Care Teams Assembler Installer General Relationship Specialty Start Date End Date Stephen Sauceda PCP - General Pediatrics 03/06/17 06/24/19 [facility] [address] [place] [address] documented as of this encounter
--- OUTSIDE RECORDS SUMMARY | 2022-04-10 09:57 | XMS_ITS | Encounter Summary ---
:2000 Author Organization [place] Address [facility]0 [facility] [place] [address] Care Team Providers Name Role Phone Stephen Sauceda Rudy Primary Care Provider Encounter Details Date Type Department Care Team Description 04/30/2018 Orders Only [facility] Cordell Juarez Atri [facility] (H) (Primary Dx) [address] [address] [place], [place] [phone] [address] (Wo rk) Social History Tobacco Use Types [...] Procedure Cardiology Cordell Juarez MD [facility]0 [facility] [place] [address] (Wo rk) 07/27/2022 Office Visit Cardiology Cordell Juarez MD [address] [address] (Wo rk) documented as of this encounter Procedures Procedure Name Priority Date/Time Associated Diagnosis Comme nts JAIDEN POWELL VIRUS Routine 04/30/2018 2:23 PM Atrial tachycard ia Results for this ANTIBODY IGG ACCESSORIES REPAIRER (H) procedure are i n the results section. CBC WITH PLATELETS & Routine 04/30/2018 2:23 PM Atrial tachyca rdia Results for this DIFFERENTIAL ACCESSORIES REPAIRER (H) procedure are i n the results section. documented in this encounter Results (ABNORMAL) Jaiden Powell Virus Antibody IgG (04/30/2018 2:23 PM ACCESSORIES REPAIRER) [facility] Time Signature EBV Capsid >8.0 (H) 0.0 - 0.8 05/01/2018 [facility] IgG AI 9:38 AM [facility] Comment: Positive, suggests recent or past exposu re Antibody index (AI) values reflect quali tative changes in antibody concentration that cannot be directly as sociated with clinical condition or disease state. EBV Nuclear Antigen >8.0 (H) 0.0 - 0.8 AI 05/01/2018 9:38 A [facility] ([facility]) Antibody IgG [facility] Comment: Positive, suggests convalescent phase or past exposure Antibody index (AI) values reflect quali tative changes in antibody concentration that cannot be directly as sociated with clinical condition or disease state. EBV Antibody to <0.2 0.0 - 0.8 AI 05/01/2018 9:38 AM T [facility] Early Antigen IgG [facility] Comment: No detectable antibody. Antibody index (AI) values reflect quali tative changes in antibody concentration that cannot be directly as sociated with clinical condition or disease state. Specimen Anatomical Collection Method Collection Time Receive d Time (Source) Location / / Volume Laterality Blood specimen 04/30/2018 2:23 PM 018 2:24 (specimen) ACCESSORIES REPAIRER PM ACCESSORIES REPAIRER Cordell Juarez MD LAB - BLOOD ORDERABLES Performing Organization Address City/State/ZIP Code Phon e Number [facility] [address] [place] [address] [place] (ABNORMAL) CBC with platelets and differential (04/30/2018 2:23 PM [facility]) [facility] gist Method Time Signature WBC 6.5 4.0 - 04/30/2018 [facility] 11.0 2:27 PM [facility] 10e9/L [facility] RBC Count 6.21 (H) 4.4 - 5.9 04/30/2018 [facility] 10e12/L 2:27 PM [facility] Hemoglobin 18.0 (H) 13.3 - 04/30/2018 [facility] 17.7 g/dL 2:27 PM [facility] Hematocrit 54.3 (H) 40.0 - 04/30/2018 [facility] 53.0 % 2:27 PM [facility] MCV 87 78 - 100 04/30/2018 [facility] fl 2:27 PM [facility] MCH 29.0 26.5 - 04/30/2018 [facility] 33.0 pg 2:27 PM [facility] MCHC 33.1 31.5 - 04/30/2018 [facility] 36.5 g/dL 2:27 PM [facility] RDW 13.1 10.0 - 04/30/2018 [facility] 15.0 % 2:27 PM [facility] Platelet Count 201 150 - 450 04/30/2018 [facility] 10e9/L 2:27 PM [facility] Diff Method Automated 04/30/2018 [facility] Method 2:27 PM [facility] % Neutrophils 67.2 % 04/30/2018 [facility] 2:27 PM [facility] % Lymphocytes 20.5 % 04/30/2018 [facility] 2:27 PM [facility] % Monocytes 10.4 % 04/30/2018 [facility] 2:27 PM [facility] % Eosinophils 1.1 % 04/30/2018 [facility] 2:27 PM [facility] % Basophils 0.5 % 04/30/2018 [facility] 2:27 PM [facility] % Immature 0.3 % 04/30/2018 [facility] Granulocytes 2:27 PM [facility] Nucleated RBCs 0 0 /100 04/30/2018 [facility] 2:27 PM [facility] Absolute 4.4 1.6 - 8.3 04/30/2018 [facility] Neutrophil 10e9/L 2:27 PM [facility] Absolute 1.3 0.8 - 5.3 04/30/2018 [place] Lymphocytes 10e9/L 2:27 PM [facility] Absolute 0.7 0.0 - 1.3 04/30/2018 [facility] Monocytes 10e9/L 2:27 PM [facility] Absolute 0.1 0.0 - 0.7 04/30/2018 [facility] Eosinophils 10e9/L 2:27 PM [facility] Absolute 0.0 0.0 - 0.2 04/30/2018 [place] Basophils 10e9/L 2:27 PM [facility] Abs Immature 0.0 0 - 0.4 04/30/2018 [place] Granulocytes 10e9/L 2:27 PM [facility] Absolute 0.0 04/30/2018 [place] Nucleated RBC 2:27 PM [facility] Specimen Anatomical Collection Method Collection Time Receive d Time (Source) Location / / Volume Laterality Blood specimen 04/30/2018 2:23 PM 018 2:24 (specimen) ACCESSORIES REPAIRER PM ACCESSORIES REPAIRER Cordell Juarez MD LAB - BLOOD ORDERABLES Performing Organization Address City/State/ZIP Code Phon e Number [place] [address] [address] [phone] documented in this encounter Visit Diagnoses Diagnosis Atrial tachycardia (H) - Primary Other specified cardiac dysrhythmias documented in this encounter Care Teams Gear Tester Relationship Specialty Start Date End Date Stephen Sauceda PCP - General Pediatrics 03/06/17 06/24/19 [facility] [address] [place] [address] documented as of this encounter
--- OUTSIDE RECORDS SUMMARY | 2022-04-10 09:57 | XMS_ITS | Encounter Summary ---
:2000 Author Organization [place] Address [facility] [place] [address] Care Team Providers Name Role Phone KomalStephen mejia Rudy Primary Care Provider Encounter Details Date Type Department Care Team Description 08/26/2017 Orders Only [facility] Cordell Juarez Atri al tachycardia (H) (Primary Dx); Pediatric Specialty Tachycardia Clinic [address] [facility] [place] [id number] [phone] Social History Tobacco Use Types Packs/Day Years [...] Procedure Cardiology Cordell Juarez MD [address] [facility] [address] [place] [address] (Wo rk) 07/27/2022 Office Visit Cardiology Cordell Juarez MD [address] [facility] [place] [address] (Wo rk) documented as of this encounter Procedures Procedure Name Priority Date/Time Associated Diagnosis Comme nts INR Routine 08/17/2017 Atrial tachycard ia (H) Results for this Tachycardia procedure are i n the results section . documented in this encounter Results INR (08/17/2017) P athologist Signature INR 2.0 Specimen (Source) Anatomical Location Collection Method / Collectio n Time Received Time / Laterality Volume Blood specimen 08/17/2017 (specimen) Narrative This result has an attachment that is no t available. Cordell Juarez MD LAB - BLOOD ORDERABLES documented in this encounter Visit Diagnoses Diagnosis Atrial tachycardia (H) - Primary Other specified cardiac dysrhythmias Tachycardia Tachycardia, unspecified documented in this encounter Care Teams Agile Qa Tester Relationship Specialty Start Date End Date Stephen Sauceda PCP - General Pediatrics 03/06/17 06/24/19 [facility] [address] [place] [address] documented as of this encounter
--- OUTSIDE RECORDS SUMMARY | 2022-04-10 09:57 | XMS_ITS | Encounter Summary ---
:2000 Author Organization [place] Address [facility] [place] [address] Care Team Providers Name Role Phone KomalStephen Primary Care Provider Encounter Details Date Type Department Care Team Description 01/15/2018 Orders Only [facility] Cordell Juarez Hypo plastic left Pediatric Specialty MD heart syndrome Clinic [address] (Primary Dx) [address] [facility] [place] [id number] [phone] Social History Tobacco Use Types Packs/Day Years [...] 07/27/2022 Ancillary Procedure Cardiology Cordell Juarez MD [address] [place], [place] [address] [place] [address] (Wo rk) 07/27/2022 Office Visit Cardiology LarryCordell MD [address] [place] [address] (Wo rk) documented as of this encounter 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 Care Teams Yard Manager Relationship Specialty Start Date End Date Stephen Sauceda PCP - General Pediatrics 03/06/17 06/24/19 [facility] [address] [place] [address] documented as of this encounter
--- OUTSIDE RECORDS SUMMARY | 2022-04-10 09:57 | XMS_ITS | Encounter Summary ---
:2000 Author Organization [place] Address [address] [facility] [place] [address] Care Team Providers Name Role Phone Stephen Sauceda Primary Care Provider Reason for Visit Reason Comments Medication Refill Encounter Details Date Type Department Care Team Description 08/01/2017 Refill [facility] Cordell Juarez MD Medication Refill Explorer Pediatric [facility] [address] [place] [address] [place] [address] [place] [address] Social History Tobacco Use Types [...] Ancillary Procedure Cardiology Cordell Juarez MD [address] [facility] [place] [address] (Wo rk) 07/27/2022 Office Visit Cardiology LarryCordell MD [address] [facility] [place] [address] (Wo rk) documented as of this encounter 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 Care Teams Mini Baccarat Dealer Relationship Specialty Start Date End Date Stephen Sauceda PCP - General Pediatrics 03/06/17 06/24/19 [facility] [address] [place] [address] documented as of this encounter
--- OUTSIDE RECORDS SUMMARY | 2022-04-10 09:57 | XMS_ITS | Encounter Summary ---
:2000 Author Organization [place] Address [address] [place] [address]. [place] [address] Care Team Providers Name Role Phone KomalStephen mejia Rudy Primary Care Provider Encounter Details Date Type Department Care Team Description 01/14/2018 [facility] Cordell Juarez MD [facility] [address] [place] [id number] [address] [facility] [address] [place] [address] Social History Tobacco Use [...] 07/27/2022 Ancillary Procedure Cardiology Cordell Juarez MD [address] [place] [id number] (Wo rk) 07/27/2022 Office Visit Cardiology Cord[facility] Juarez [facility] [address] [facility] [place] [address] (Wo rk) documented as of this encounter Visit Diagnoses Not on filedocumented in this encounter Care Teams Economics Consultant Relationship Specialty Start Date End Date Stephen Sauceda PCP - General Pediatrics 03/06/17 06/24/19 [facility] [address] [place] [address] documented as of this encounter
--- OUTSIDE RECORDS SUMMARY | 2022-04-10 09:57 | XMS_ITS | Encounter Summary ---
:2000 Author Organization [place] Address [address] [place] [address] Care Team Providers Name Role Phone Stephen Sauceda Primary Care Provider Reason for Visit Reason Comments Chest Pain Encounter Details Date Type Department Care Team Description 04/28/2018 Emergency [facility] Olimpia Umanzor Tachycardia; Emergency Department MD Tacho Atypical chest pain [address] [place] [address] [address] [place] [address] (Wo rk) Social History Tobacco Use Types Packs/Day Years Used Date Smoking Tobacco: Never Comments: none at home Alcohol Use Standard Drinks/Week Comments No 0 (1 standard drink = 0.6 oz pure alcoho l) Sex Assigned at Date Recorded Male 03/09/2019 1:21 PM CDT documented as of this encounter Last Filed Vital Signs Vital Sign Reading Time Taken Comments Blood Pressure 124/79 04/28/2018 6:21 PM COMMUNITY HE[facility] PROGRAM COORDINATOR Pulse 97 04/28/2018 2:07 PM COMMUNITY HEALTH PROGRAM COORDINATOR Temperature 36.8 ??C (98.2 ??F) 04/28/2018 6:21 PM COMMUNITY HEALTH PROGRAM COORDINATOR Respiratory Rate 16 04/28/2018 6:21 PM COMMUNITY HEALTH PROGRAM COORDINATOR Oxygen Saturation 96% 04/28/2018 6:21 PM COMMUNITY HEALTH PROGRAM COORDINATOR Inhaled Oxygen Concentration - - Weight 63.5 kg (139 lb 15.9 oz) 04/28/2018 2:07 PM COMMUNITY HEALTH PROGRAM COORDINATOR Height - - Body Mass Index 24.05 10/30/2017 2:25 PM CDT Body Mass Index Percentile 73.07 % 04/28/2018 2:07 PM CS T Growth Chart: FORMER[facility] NAMED [facility] (Boys, 2-20 Years) documented in this encounter Discharge Instructions Discharge InstructionsRudy Taylor MD - 04/28/2018 5:59 PM CST Images from the original note were not included. Emergency Department Discharge Information for Jude Roque was seen in the [facility] Emergency Department today for chest pain by Dr. Taylor and Dr. Agrawal. We recommend that you take your medications and follow-up with Dr. Juarez as scheduled. For fever or pain, Jude can have: ??? Acetaminophen (Tylenol) every 8 hours as needed (up to 5 doses in 24 hours). His dose is: 2 extra strength tabs (1000 mg) (67+ kg/138+ lb) Or ??? Ibuprofen (Advil, Motrin) every 6 hours as [...] with 0.4 and 0.8 ml, call us ([phone]) or check with your doctor about the correct dose. These doses are based on your child???s weight. If you have a prescription for these medicines, the dose may be a little different. Either dose is safe. If you have questions, ask a doctor or pharmacist. Please return to the ED or contact his primary physician if he becomes much more ill, if he has trouble breathing, he appears blue or pale, he won???t drink, he has severe pain, or if you have any other concerns. Uncertain Causes of Chest Pain Chest pain can happen for a number of reasons. Sometimes the cause can't be determined. If your??condition does not seem serious, and your pain does not appear to be coming from your heart, your healthcare provider may recommend watching it closely. Sometimes the signs of a serious problem take more time to appear. Many problems not related to your heart can cause chest pain. These include: ?? Musculoskeletal. Costochondritis is an inflammation of the tissues around the ribs that can occurfrom trauma or overuse injuries, or a strain of the muscles of the chest wall ?? Respiratory. Pneumonia, collapsed lung (pneumothorax), or inflammation of the lining of the chestand lungs (pleurisy) ?? Gastrointestinal. Esophageal reflux, heartburn, ulcers, or gallbladder disease ?? Anxiety and panic disorders ?? Nerve compression and inflammation ?? Rare miscellaneous problems such as aortic aneurysm (a swelling of the large artery coming out ofthe heart) or pulmonary embolism (a blood clot in the lungs) Home care After your visit, follow these recommendations: ?? Rest today and avoid strenuous activity. ?? Take any prescribed medicine as directed. ?? Be aware of any recurrent chest pain and notice any changes Follow-up care Follow up with your healthcare provider if you do not start to feel better within 24 hours, or as advised. When to seek medical advice Call your healthcare provider right away if any of the following occur: ?? Cough with dark colored sputum (phlegm) or blood ?? Fever of 100.4??F??(38??C) or higher, or as directed by your healthcare provider ?? Swelling, pain or redness in one leg Date Last Reviewed: 10/15/2017 ?? [id number] [employer]. [address] [place] [address]. All rights reserved. This information is not intended as a substitute for professional medical care. Always follow your healthcare professional's instructions. [facility] HEALTH PROGRAM COORDINATOR documented in this encounter Medications at Time of Discharge Medication Sig Dispensed Refills Start Date End Date digoxin (LANOXIN) 250 MCG Take 1 tablet (250 30 tablet 11 12/14/2018 tabletIndications: SVT mcg) by mouth daily (supraventricular tachycardia) (H) furosemide (LASIX) 20 MG Take 0.5 tablets 45 tablet 3 05/2906/09/2018 tabletIndications: (10 mg) by mouth Hypoplastic left heart daily syndrome metoprolol (TOPROL-XL) 25 Take 1 tablet (25 90 tablet 3 06/09/2018 MG 24 hr mg) by mouth daily tabletIndications: Tachycardia Montelukast Sodium 0 2018 (SINGULAIR PO) omeprazole (PRILOSEC) 20 Take 1 capsule 90 capsule 3 018 09/09/2018 MG CR capsuleIndications: twice daily for one Chest pain, unspecified week then once type daily order for DMEIndications: Equipment being ordered: Oxy gen, cannula, and supplies for administration. 1 Device 0 01/15/2018 08/30/2018 Hypoplastic left heart Please supply a small [email or web address] concentrator. syndrome Patient to receive 2L Oxygen PRN by nasal cannula for family trip to [place]. sildenafil (REVATIO) 20 Take 1 tablet (20 90 tablet 11 06/2111/04/2019 MG tabletIndications: mg) by mouth three 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 Never use with nitroglycerin, terazosin or doxazosin. spironolactone Take 1 tablet (25 30 tablet 11 09/25/2017 (ALDACTONE) 25 MG mg) by mouth daily tabletIndications: Hypoplastic left heart syndrome warfarin (COUMADIN) 5 MG Take 5 mg daily 90 tablet 3 201708/22/2018 tabletIndications: Chest M/W/F/sat/sun. 2.5 pain, unspecified type mg tues/thurs warfarin (COUMADIN) 5 MG Take 1 tablet (5mg) 30 tablet 0 08/30/2018 tabletIndications: every day except Hypoplastic left heart Saturday and syndrome Saturday. 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 His heart rate is normal currently in ED with highest noted to be around 110 bpm. His oxygen saturations are normal. His D-dimer and Troponin are negative. His INR is a little lower than his goal range (2-2.5). He was given his doses of medication in the ED. His chest pain did resolve at about 3 hours and he was discharged home from the ED with planned follow-up with Dr. Juarez on Saturday05/01/2018. Recommendations: 1. Follow-up with Dr. Juarez on 05/01 - already scheduled appointment 2. Advised not to skip medications and remain hydrated 3. If any dizziness, fainting or tachycardia he was advised he would need to be re-evaluated 4. CK-MB was pending at time of discharge from ED Discussed with Dr. Ugarte. Fabienne Navarrete DO Pediatric Autopsy Assistant 04/28/2018 6:38 PM Pager: [phone] Attending Attestation: Attestation: This patient has been seen and evaluated by me, Marisabel Ugarte MD. Discussed with the resident and agree with the findings and plan in this note. I have reviewed today's vital signs, medications, labs and imaging. 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 He underwent a central shunt, followed by a Fortino procedure and completion of a Fontan procedure at the [facility] in [place]. He had catheter closure of his Fontan fenestration at the [facility] in January 2007. Cardiology was consulted in the ED for concern of chest pain. Jude is seen by Dr. Cordell Juarez who hasevaluated him for chest pain in the past including Holter and ZioPatch. He also has a history of GERD. Jude states that he was in class today and felt a left sided, stabbing/ throbbing chest pain that was 4-5/10 and he also felt warm. This did occurred 30 minutes or so after lunch at 12:30 pm. He wentto the nurse's office and was found to by tachycardic to 120's with sats in the 92-93%. He was placed on oxygen and since the chest pain did not resolve he came to the ED. In the ED he was placed on 5Lof oxygen. He denies fever, cough, runny nose, shortness of breath, palpitations, diarrhea, vomiting, abdominal pain, vision changes, dizziness, near syncope or syncope. He only endorses the warm feeling prior to the chest pain and some flushing. Of note, he did not take any of his medications today. In the ED labs were obtained including CMP, Troponin, CBC, INR, PTT, D-dimer. Of his labs, INR was 1.58 and PTT was 42. CXR, EKG and Echo also obtained. EKG was unchanged as was Echo (see studies/imaging). PMH: Past Medical History: Diagnosis Date ??? 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 Congenital anomalies of spleen Polysplenia ??? Esophageal reflux ??? 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 Adopted: Yes ??? Unknown/Adopted Other child [place] 10mo of age ??? Unknown/Adopted Other ??? Unknown/Adopted Other Social History: Social History Social History ??? Marital status: Single Spouse name: N/A ??? Number of children: N/A ??? Years of education: N/A Occupational History ??? Not on file. Social History Main Topics ??? Smoking status: Never Smoker ??? Smokeless tobacco: Not on file Comment: none at home ??? Alcohol use No ??? Drug use: No ??? Sexual activity: No Other Topics Concern ??? Not on file Social History Narrative No strenuous workout routines or sports trauma Review of Systems: Pertinent positive Review of Systems in the history Medications: I have reviewed this patient's current medications Physical Exam: Vital Ranges Hemodynamics Temp: [98.2 ??F (36.8 ??C)-99 ??F (37.2 ??C)] 98.2 ??F (36.8 ??C) Pulse: [97] 97 Heart Rate: [65-92] 65 Resp: [9-16] 16 BP: (106-143)/(56-83) 124/79 SpO2: [93 %-98 %] 96 % BP - Mean: [81-103] 81 Vitals: 04/28/18 1407 Weight: 63.5 kg (139 lb 15.9 oz) Weight change: General - Well appearing teen age male, NAD HEENT - NCAT, MMM, Pupils equal and round Cardiac - RRR, normal S1 and single S2, grade 2/6 systolic ejection murmur at the LUSB, and no rubs,gallops or diastolic murmurs. 2+ pulses throughout. Normal cap refill Respiratory - CTAB, no increased work of breathing Abdominal - Soft, NTND, no organomegaly Ext / Skin - Warm and well perfused Neuro - Alert and oriented Labs/Imaging/Studies Echo (04/28/18): Double outlet right ventricle, transposition of the great arteries (d-TGA) and a large anterior malalignment ventricular septal defect after fenestrated Fontan operation. Previousdevice closure of Fontan fenestration. The Fontan fenestration device is in good position. There is laminar phasic color flow in the Fortino shunt. The right ventricle has normal contractility. Upper mild tricuspid valve insufficiency. No pericardial effusion. There is no evidence of intracardiac thrombus. No significant change from last Echocardiogram. EKG 04/28/18: Sinus rhythm, Right axis deviation, Incomplete RBBB , plus right ventricular hypertrophy Nonspecific T wave abnormality. Normal intervals and QTc. Unchanged from prior EKG CXR 04/28/18: PA and lateral radiographs of the chest. Sternotomy wires present withfracture of the most inferior wire. Calcified Fontan along the right heart border, unchanged from prior. Trachea is midline. Cardiac silhouette is within normal limits. Prominent pulmonary vasculature similar to prior. No new focal pulmonary consolidations. No significant pleural effusion or pneumothorax. Recent Labs Lab 04/28/18 1424 NA 140 POTASSIUM 4.0 CHLORIDE 106 CO2 27 BUN 17 CR 0.86 GOYO 9.0* Recent Labs Lab 04/28/18 1424 ALBUMIN 4.2 No lab results found in last 7 days. Recent Labs Lab 04/28/18 1424 HGB 16.8 PLT 182 PTT 42* INR 1.58* Recent Labs Lab 04/28/18 1424 WBC 7.6 No lab results found in last 7 days. ABGNo results for input(s): PH, PCO2, PO2, HCO3 in the last 168 hours. VBGNo results for input(s): PHV, PCO2V, PO2V, HCO3V in the last 168 hours. UNITY HEALTH PROGRAM COORDINATOR documented in this encounter ED Notes Krystal Wolfe RN - 04/28/2018 2:04 PM CST Pt has cardiac HX and c/o sudden onset chest pain. 911 called. Placed IV and O2 per NC and transportto ED UNITY HEALTH PROGRAM COORDINATOR Randa Umanzor MD - 04/28/2018 2:02 PM CST History Chief Complaint Patient presents with ??? Chest Pain HPI History obtained from family, patient Jude is an 18 year old young man with double outlet right ventricle, left ventricular hypoplasia, d-transposition of the great vessels and pulmonary stenosis. He underwent a central shunt, followed by a Fortino procedure and completion of a Fontan procedure at the [facility] in [place]. He had c atheter closure of his Fontan fenestration at the [facility] in January 2007 who presents at 2:07 PM with ongoing chest pain. Of note, he has had a history of atypical chest pain over the past several month with unremarkable holter and ziopatch. Does get occasional episodes of chest pain with last episode being last (today is Saturday). Usually tries to triage this at home. Had otherwise stable vital signs last time with normal HR, BP, and the pain went away on its own then. Today, he woke up late and missed his metoprolol dose. Went to class and ate lunch at 12:30. Within 20-30 minutes while in class, he developed left-sided, throbbing, sharp chest pain that was 4-5/10. Non-pleuritic. Non-remitting. Not reproduceable to touch. No recent trauma to chest wall. Went to nurse, found to by tachycardic to 120's with sats in the 92-93%. Chest pain was not remitting. Brought to the ED. No fevers, but over the past week has felt more flushed occasionally. No shortness of breath, nausea, vomiting, diarrhea, constipation. Has been fatigued. No pronounced edema, though mother notes that his arms looked puffier than usual yesterday. When asked in private, no reports of recreational drug use, marijuana, adderall. No dysuria. Reports that he has been taking his meds as usual, except missed his medications this morning including metoprolol and coumadin due to being late for school. PMHx: Past Medical History: Diagnosis Date ??? 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 Congenital anomalies of spleen Polysplenia ??? Esophageal reflux ??? 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 [...] facility-administered medications for this encounter. Current Outpatient Prescriptions Medication ??? digoxin (LANOXIN) 250 MCG tablet ??? furosemide (LASIX) 20 MG tablet ??? metoprolol (TOPROL-XL) 25 MG 24 hr tablet ??? Montelukast Sodium (SINGULAIR PO) ??? omeprazole (PRILOSEC) 20 MG CR capsule ??? order for DME ??? sildenafil (REVATIO) 20 MG tablet ??? spironolactone (ALDACTONE) 25 MG tablet ??? warfarin (COUMADIN) 5 MG tablet ??? warfarin (COUMADIN) 5 MG tablet ALLERGIES: Motrin [ibuprofen] and Seasonal allergies IMMUNIZATIONS: UTD by report. SOCIAL HISTORY: Jude lives with FAMILY. He attends high school and takes college classes as well. I have reviewed the Medications, Allergies, Past Medical and Surgical History, and Social History inthe [employer] system. Review of Systems Please see HPI for pertinent positives and negatives. All other systems reviewed and found to be negative. Physical Exam BP: 131/83 Pulse: 97 Heart Rate: 80 Temp: 99 ??F (37.2 ??C) Resp: 14 Weight: 63.5 kg (139 lb 15.9 oz) SpO2: 96 % Physical Exam Appearance: Alert and appropriate, well developed, nontoxic, with moist mucous membranes. HEENT: Head: Normocephalic and atraumatic. Eyes: PERRL, EOM grossly intact, conjunctivae and sclerae clear. Ears: Tympanic membranes clear bilaterally, without inflammation or effusion. Nose: Nares clear with no active discharge. Mouth/Throat: No oral lesions, pharynx clear with no erythema or exudate. Neck: Supple, no masses, no meningismus. No significant cervical lymphadenopathy. Pulmonary: No grunting, flaring, retractions or stridor. Good air entry, clear to auscultation bilaterally, with no rales, rhonchi, or wheezing. Cardiovascular: Sternotomy scar. Regular rate and rhythm, single S2, with no murmurs. Normal symmetric peripheral pulses and brisk cap refill. No pitting edema. Abdominal: Normal bowel sounds, soft, nontender, nondistended, with no masses and no hepatosplenomegaly. Neurologic: Alert and oriented, cranial nerves II-XII grossly intact, moving all extremities equallywith grossly normal coordination and normal gait. Extremities/Back: No deformity, no CVA tenderness. Skin: No significant rashes, ecchymoses, or lacerations. Genitourinary: Deferred Rectal: Deferred ED Course ED Course Procedures Results for orders placed or performed during the hospital encounter of 04/28/18 (from the past 24 hour(s)) EKG 12 lead Result Value Ref Range Interpretation ECG Click View Image link to view waveform and result Troponin POCT Result Value Ref Range Troponin I 0.01 0.00 - 0.08 ug/L CBC with platelets differential Result Value Ref Range WBC 7.6 4.0 - 11.0 10e9/L RBC Count 5.70 4.4 - 5.9 10e12/L Hemoglobin 16.8 13.3 - 17.7 g/dL Hematocrit 49.3 40.0 - 53.0 % MCV 87 78 - 100 fl MCH 29.5 26.5 - 33.0 pg MCHC 34.1 31.5 - 36.5 g/dL RDW 12.9 10.0 - 15.0 % Platelet Count 182 150 - 450 10e9/L Diff Method Automated Method % Neutrophils 75.6 % % Lymphocytes 16.9 % % Monocytes 6.0 % % Eosinophils 0.9 % % Basophils 0.3 % % Immature Granulocytes 0.3 % Nucleated RBCs 0 0 /100 Absolute Neutrophil 5.8 1.6 - 8.3 10e9/L Absolute Lymphocytes 1.3 0.8 - 5.3 10e9/L Absolute Monocytes 0.5 0.0 - 1.3 10e9/L Absolute Eosinophils 0.1 0.0 - 0.7 10e9/L Absolute Basophils 0.0 0.0 - 0.2 10e9/L Abs Immature Granulocytes 0.0 0 - 0.4 10e9/L Absolute Nucleated RBC 0.0 Troponin I Result Value Ref Range Troponin I ES <0.015 0.000 - 0.045 ug/L INR Result Value Ref Range INR 1.58 (H) 0.86 - 1.14 Partial thromboplastin time Result Value Ref Range PTT 42 (H) 22 - 37 sec Comprehensive metabolic panel Result Value Ref Range Sodium 140 133 - 144 mmol/L Potassium 4.0 3.4 - 5.3 mmol/L Chloride 106 98 - 110 mmol/L Carbon Dioxide 27 20 - 32 mmol/L Anion Gap 7 3 - 14 mmol/L Glucose 108 (H) 70 - 99 mg/dL Urea Nitrogen 17 7 - 21 mg/dL Creatinine 0.86 0.50 - 1.00 mg/dL GFR Estimate >90 >60 mL/min/1.7m2 GFR Estimate If Black >90 >60 mL/min/1.7m2 Calcium 9.0 (L) 9.1 - 10.3 mg/dL Bilirubin Total 0.8 0.2 - 1.3 mg/dL Albumin 4.2 3.4 - 5.0 g/dL Protein Total 7.8 6.8 - 8.8 g/dL Alkaline Phosphatase 110 65 - 260 U/L ALT 30 0 - 50 U/L AST 36 (H) 0 - 35 U/L Nt probnp inpatient Result Value Ref Range N-Terminal Pro BNP Inpatient 55 0 - 450 pg/mL D dimer quantitative Result Value Ref Range D Dimer 0.3 0.0 - 0.50 ug/ml FEU XR Chest 2 Views Narrative Exam: XR CHEST 2 VW, 04/28/2018 3:18 PM Indication: chest pain; Comparison: 03/06/2017 Findings: PA and lateral radiographs of the chest. Sternotomy wires present with fracture of the most inferior wire. Calcified Fontan along the right heart border, unchanged from prior. Trachea is midline. Cardiac silhouette is within normal limits. Prominent pulmonary vasculature similar to prior. No new focal pulmonary consolidations. No significant pleural effusion or pneumothorax. Impression Impression: Stable postoperative chest. No acute pulmonary disease. I have personally reviewed the examination and initial interpretation and I agree with the findings. TAMMI CORTEZ MD Echo Pediatric Complete* Narrative [id number] [facility] [id number]^JODIE^RANDA^Tacho Study ID: [id number] [facility] [place] [address] Pediatric Echocardiogram __ Name: JUDE MERRITT Study Date: 04/28/2018 04:18 PM Patient Location: [facility] Age: 18 yrs : 2000 BP: 129/59 mmHg Gender: Male Patient Class: Emergency Height: 163 cm Ordering Provider: RANDA UMANZOR Weight: 64 kg BSA: 1.7 m2 Performed By: Santy Crawford RDCS Report approved by: Artemio Silva MD Reason For Study: CP, Chest Pressure, Chest Tightness __ ------CONCLUSIONS------ Double outlet right ventricle, transposition of the great arteries (d-TGA) and a large anterior malalignment ventricular septal defect after fenestrated Fontan operation. Previous device closure of Fontan fenestration. The Fontan fenestration device is in good position. There is laminar phasic color flow in the Fortino shunt. The right ventricle has normal contractility. Upper mild tricuspid valve insufficiency. No pericardial effusion. There is no evidence of intracardiac thrombus. No significant change from last echocardiogram. __ Technical information: A complete two dimensional, MMODE, spectral and color Doppler transthoracic echocardiogram is performed. The study quality is fair. Images are obtained from parasternal, apical, subcostal and suprasternal notch views. Prior echocardiogram available for comparison. ECG tracing shows regular rhythm. ECG tracing shows sinus bradycardia at 54 bpm. Segmental Anatomy: There is normal atrial arrangement. [...] insufficiency. There is no aortic valve stenosis. There is unobstructed antegrade flow in the ascending, transverse arch, descending thoracic and abdominal aorta. Coronaries: The coronary arteries are not evaluated. Effusions, catheters, cannulas and leads: No pericardial effusion. Doppler Measurements & Calculations LV dP/dt: 1398 mmHg/s Report approved by: Janee Carolina 04/28/2018 05:27 PM Medications lidocaine (viscous) (XYLOCAINE) 2 % 15 mL, alum & mag hydroxide-simethicone (MYLANTA ES/MAALOX ES) 15 mL GI Cocktail (30 mLs Oral Given 04/28/18 155) digoxin (LANOXIN) tablet 250 mcg (250 mcg Oral Given 04/28/181658) furosemide (LASIX) half-tab 10 mg (10 mg Oral Given 04/28/181657) metoprolol succinate (TOPROL-XL) 24 hr tablet 25 mg (25 mg Oral Given 04/28/181657) sildenafil (REVATIO) tablet 20 mg (20 mg Oral Given 04/28/181656) spironolactone (ALDACTONE) tablet 25 mg (25 mg Oral Given 04/28/181656) acetaminophen (TYLENOL) tablet 500 mg (500 mg Oral Given 04/28/181655) EKG Interpretation: Interpreted by Rudy Taylor Time reviewed:1450 Symptoms at time of EKG: None Rhythm: Normal sinus Rate: Normal [place]: Right [place] Deviation Ectopy: None Conduction: Normal ST Segments/ T Waves: No ST-T wave changes and No acute ischemic changes Q Waves: None Comparison to prior: Unchanged Clinical Impression: no acute changes IV access obtained. CMP unremarkable. CBC unremarkable. EKG unchanged. Troponin negative. INR subtherapeutic at 1.58. D-dimer negative. BNP normal. CXR without mediastinal widening or consolidation. 1630 - given home digoxin, sildenafil, spironolactone, metoprolol 1640 - chest pain remitted about 3-4 hours after initiation. 1645 - GI cocktail given 1700 - ECHO normal. Discussed with cardiology, who evaluated him in the ED, performed an Echo, and agreed with the impression and plan as documented. Chart reviewed, supported history as above. Critical care time: none Assessments & Plan (with Medical Decision Making) Jude is a 18 year old boy with double outlet right ventricle, left ventricular hypoplasia, d-transposition of the great vessels and pulmonary stenosis. He underwent a central shunt, followed by a Glennprocedure and completion of a Fontan procedure at the [facility] in [place]. 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 Vital signs notable for tachycardia with sats in the low 90's on presentation. Differential was initially concerning for ACS (normal EKG, negative troponin and CK-MB), pulmonary embolism (d-dimer low),reflux (pain remitted before GI cocktail), tachycardia mediated chest pressure in setting of missingmedications, musculoskeletal chest pain (not reproducible to touch, no trauma). Pain remitted on itsown. Tachycardia slowly improved from 120's -> 80's here though baseline is in the 50's-60's. ECHO unchanged from prior. Given the resolution of the pain with otherwise stable vital signs, determined to be atypical chest pain, possibly with some contribution from tachycardia related to missing medications. -- Discharged with instructions to take medications -- Follow-up with Dr. Juarez on Saturday. I have seen the patient and discussed plan of care with Dr. Agrawal (Attending Physician). Rudy Taylor MD Medicine-Pediatrics, PGY4 I have reviewed the nursing notes. I have reviewed the findings, diagnosis, plan and need for follow up with the patient. Discharge Medication List as of 04/28/2018 6:07 PM Final diagnoses: Tachycardia Atypical chest pain This data was collected with the resident physician working in the Emergency Department. I saw and evaluated the patient and repeated the norton portions of the history and physical exam. The plan of carehas been discussed with the patient and family by me or by the resident under my supervision. I haveread and edited the entire note. I signed out his care to Dr. Agrawal at 15:30 with cardiology consultation pending. Randa Umanzor MD 04/28/2018 [facility] EMERGENCY DEPARTMENT Randa Umanzor MD 04/29/18 1611 Randa Umanzor MD 04/29/18 1612 Randa Umanzor MD 04/29/18 1619 [facility] PROGRAM COORDINATOR documented in this encounter Plan of Treatment Upcoming Encounters Date Type Specialty Care Team Description 07/27/2022 Ancillary Procedure Cardiology Cordell Juarez MD [address] [place], [place] [address] (Wo rk) 07/27/2022 Office Visit Cardiology Cordell Juarez MD [address] [place], [place] [address] (Wo rk) Pending Results Name Type Priority Associated Diagnoses Date/Ti me EKG 12 lead EKG STAT 04/28/2018 2:15 PM COMMUNITY HEALTH PROGRAM COORDINATOR documented as of this encounter Procedures Procedure Name Priority Date/Time Associated Comments Diagnosis ECHO PEDIATRIC COMPLETE STAT 04/28/2018 5:27 R esults for this PM COMMUNITY HEALTH PROGRAM COORDINATOR procedure are i n the results section. XR CHEST 2 VIEWS STAT 04/28/2018 3:18 Results for this PM COMMUNITY HEALTH PROGRAM COORDINATOR procedure are i n the results section. CREATINE KINASE Routine 04/28/2018 2:24 Tachycardia Results f or this ISOENZYMES PM COMMUNITY HEALTH PROGRAM COORDINATOR procedure are i n the results section. CBC WITH PLATELETS & STAT 04/28/2018 2:24 Resu lts for this DIFFERENTIAL PM COMMUNITY HEALTH PROGRAM COORDINATOR procedure are i n the results section. TROPONIN I STAT 04/28/2018 2:24 Results for this PM COMMUNITY HEALTH PROGRAM COORDINATOR procedure are i n the results section. INR STAT 04/28/2018 2:24 Results for this PM COMMUNITY HEALTH PROGRAM COORDINATOR procedure are i n the results section. PARTIAL THROMBOPLASTIN STAT 04/28/2018 2:24 Re sults for this TIME PM COMMUNITY HEALTH PROGRAM COORDINATOR procedure are i n the results section. NT PROBNP INPATIENT Routine 04/28/2018 2:24 Resul ts for this PM COMMUNITY HEALTH PROGRAM COORDINATOR procedure are i n the results section. D DIMER QUANTITATIVE Routine 04/28/2018 2:24 Resu lts for this PM COMMUNITY HEALTH PROGRAM COORDINATOR procedure are i n the results section. COMPREHENSIVE METABOLIC STAT 04/28/2018 2:24 R esults for this PANEL PM COMMUNITY HEALTH PROGRAM COORDINATOR procedure are i n the results section. TROPONIN POCT Routine 04/28/2018 2:21 Results for this PM COMMUNITY HEALTH PROGRAM COORDINATOR procedure are i n the results section. EKG 12-LEAD, TRACING STAT 04/28/2018 2:15 ONLY PM COMMUNITY HEALTH PROGRAM COORDINATOR documented in this encounter Results Echo Pediatric Complete* (04/28/2018 5:27 PM COMMUNITY HEALTH PROGRAM COORDINATOR) Anatomical Region Laterality Modality Echocardiography Specimen (Source) Anatomical Collection Method Collection Time Re ceived Time Location / / Volume Laterality 04/28/2018 4:18 PM COMMUNITY HEALTH PROGRAM COORDINATOR Narrative 04/28/2018 5:27 PM COMMUNITY HEALTH PROGRAM COORDINATOR [id number] [facility] [id number]^JODIE^RANDA^Tacho ?Study ID: [id number] ?[facility] ?[facility] ?[address] ?[place] [address] ? Pediatric Echocardiogram __ Name: JUDE MERRITT Study Date: 04/28/2018 04:18 PM ? Patient Location: [facility] ? Age: 18 yrs : 2000 ? BP: 129/59 mmHg Gender: Male Patient Class: Emergency ?Height: 163 cm Ordering Provider: RANDA UMANZOR ? 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 Upper mild tricuspid valve insufficiency . No pericardial effusion. There is no evidence of intracardiac thr ombus. No significant change from last echocardiogram. __ [...] ciency. There is no aortic valve stenosis. There is unobstructed antegrad e flow in the ascending, transverse arch, descending thoracic and abdominal aorta. Coronaries: The coronary arteries are not evaluated. Effusions, catheters, cannulas and leads : No pericardial effusion. Doppler Measurements & Calculations LV dP/dt: 1398 mmHg/s Report approved by: Janee Carolina 04/17 05:27 PM Procedure Note Artemio Silva MD - 04/28/2018 [id number] [facility] [id number]^JODIE^RANDA^A Study ID: [id number] [address] [address] Pediatric Echocardiogram __ Name: JUDE MERRITT Study Date: 04/28/2018 04:18 PM Patient Location: [facility] Age: 18 yrs : 2000 BP: 129/59 mmHg Gender: Male Patient Class: Emergency Height: 163 cm Ordering Provider: RANDA UMANZOR Weight: 64 kg BSA: 1.7 m2 Performed By: Santy Crawford KARTHIK Report approved by: Artemio Silva MD Reason For Study: CP, Chest Pressure, Ch est Tightness __ ------CONCLUSIONS------ Double outlet right ventricle, transposi [...] contractility. Upper mild tricuspid valve insufficiency . No pericardial effusion. There is no evidence of intracardiac thr ombus. No significant change from last echocardiogram. __ [...] ciency. There is no aortic valve stenosis. There is unobstructed antegrad e flow in the ascending, transverse arch, descending thoracic and abdominal aorta. Coronaries: The coronary arteries are not evaluated. Effusions, catheters, cannulas and leads : No pericardial effusion. Doppler Measurements & Calculations LV dP/dt: 1398 mmHg/s Report approved by: Janee Carolina 04/17 05:27 PM Randa Umanzor MD CV PEDS ECHO ORDERABLES XR Chest 2 Views (04/28/2018 3:18 PM COMMUNITY HEALTH PROGRAM COORDINATOR) Anatomical Region Laterality Modality Chest Radio Fluoroscopy Specimen (Source) Anatomical Location Collection Method / Collectio n Time Received Time / Laterality Volume Impressions 04/28/2018 3:47 PM COMMUNITY HEALTH PROGRAM COORDINATOR Impression: Stable postoperative chest. No acute pulmonary disease. I have personally reviewed the examinati on and initial interpretation and I agree with the findings. TAMMI CORTEZ MD Narrative 04/28/2018 3:47 PM COMMUNITY HEALTH PROGRAM COORDINATOR Exam: XR CHEST 2 VW, 04/28/2018 3:18 PM Indication: chest pain; Comparison: 03/06/2017 Findings: PA and lateral radiographs of the chest. Sternotomy wires present with fracture of the most inferior wire. Calc ified Fontan along the right heart border, unchanged from prior. Trac hea is midline. Cardiac silhouette is within normal limits. Prom inent pulmonary vasculature similar to prior. No new focal pulmonary consolidations. No significant pleural effusion or pneumoth orax. Procedure Note Tammi Cortez MD - 04/28/2018Fo rmatting of this note might be different from the original. Exam: XR CHEST 2 VW, 04/28/2018 3:18 PM Indication: chest pain; Comparison: 03/06/2017 Findings: PA and lateral radiographs of the chest. Sternotomy wires present with fracture of the most inferior wire. Calc ified Fontan along the right heart border, unchanged from prior. Trac hea is midline. Cardiac silhouette is within normal limits. Prom inent pulmonary vasculature similar to prior. No new focal pulmonary consolidations. No significant pleural effusion or pneumoth orax. Impression: Stable postoperative chest. No acute pulmonary disease. I have personally reviewed the examinati on and initial interpretation and I agree with the findings. TAMMI CORTEZ MD Randa Umanzor MD IMG DIAGNOSTIC IMAGING ORDER BHAVESH D dimer quantitative (04/28/2018 2:24 PM COMMUNITY HEALTH PROGRAM COORDINATOR) P athologist Signature D Dimer 0.3 0.0 - 0.50 04/28/2018 [facility] ug/ml FEU 4:49 PM [facility] Comment: This D-dimer assay is intended for use i n conjunction with a clinical pretest probability assessment model to exclude pulmonary embolism (PE) and deep venous thrombosis (DVT) in outpatients s uspected of PE or DVT. The cut-off value is 0.5 ug/mL FEU. Specimen Anatomical Collection Method Collection Time Receive d Time (Source) Location / / Volume Laterality 04/28/2018 2:24 PM 8 2:29 COMM[facility]ITY HEALTH PROGRAM COORDINATOR PM COMMUNITY HEALTH PROGRAM COORDINATOR Randa Umanzor MD LAB - BLOOD ORDERABLES Performing Organization Address City/State/ZIP Code Phon e Number [facility] [address] [place] [address] [facility] Creatine Kinase Isoenzymes (04/28/2018 2:24 PM COMMUNITY HEALTH PROGRAM COORDINATOR) athologist Signature CK Total 165 20 - 200 05/01/2018 [facility] U/L 8:45 PM [facility] Comment: (Note) REFERENCE INTERVAL: CK Total Access complete set of age- and/or gende r-specific reference intervals for this test in the [facility] Test Directory ([employer]). CK-MM 100 96 - 100 % 05/01/2018 8:45 PM COMMUNITY HEALTH PROGRAM COORDINATOR [facility] Comment: (Note) Sample is moderately hemolyzed. Hemolysi s may affect results. CK-MB 0 0 - 4 % 05/01/2018 8:[address] COMMUNITY HEALTH PROGRAM COORDINATOR [facility] CK-BB 0 0 - 0 % 05/01/2018 8:45 PM COMMUNITY HEALTH PROGRAM COORDINATOR [facility] CK Macro Type I 0 0 - 0 % 05/01/2018 8:[address] [facility] CK Macro Type II 0 0 - 0 % 05/01/2018 8:45 PM COMMUNITY HEALTH PROGRAM COORDINATOR [facility] Comment: (Note) Performed by [email or web address], [address] [place] [address] [email or web address], Dominik Ovalle MD, Lab. Director Specimen Anatomical Collection Method Collection Time Receive d Time (Source) Location / / Volume Laterality 04/28/2018 2:24 PM 8 2:29 COMMUNITY HEALTH PROGRAM COORDINATOR PM COMMUNITY HEALTH PROGRAM COORDINATOR Randa Umanzor MD LAB - BLOOD ORDERABLES Performing Organization Address City/State/ZIP Code Phon e Number [facility] [address] [place] [address] [facility] Nt probnp inpatient (04/28/2018 2:24 PM COMMUNITY HEALTH PROGRAM COORDINATOR) athologist Signature N-Terminal Pro 55 0 - 450 04/28/2018 SELMA BNP Inpatient pg/mL 4:14 PM [facility] Comment: Reference range shown and results flagge [...] Time (Source) Location / / Volume Laterality 04/28/2018 2:24 PM 8 2:29 COMMUNITY HEALTH PROGRAM COORDINATOR PM COMMUNITY HEALTH PROGRAM COORDINATOR Randa Umanzor MD LAB - BLOOD ORDERABLES Performing Organization Address City/[facility]/ZIP Code Phon e Number [facility] [address] [place] [address] [facility] [address] [place] [address], [facility] [phone] (ABNORMAL) Comprehensive metabolic panel (04/28/2018 2:24 PM COMMUNITY HEALTH PROGRAM COORDINATOR) athologist Signature Sodium 140 133 - 144 04/28/2018 [facility] mmol/L 2:53 PM [facility] Potassium 4.0 3.4 - 5.3 04/28/2018 [facility] mmol/L 3:05 PM [facility] Comment: Specimen slightly hemolyzed, po tassium may be falsely elevated Chloride 106 98 - 110 mmol/L 04/28/2018 2:53 PM [facility] Carbon Dioxide 27 20 - 32 mmol/L 04/28/2018 2:53 PM [facility] Anion Gap 7 3 - 14 mmol/L 04/28/2018 2:53 PM [facility] Glucose 108 (H) 70 - 99 mg/dL 04/28/2018 2:53 PM [facility] Urea Nitrogen 17 7 - 21 mg/dL 04/28/2018 2:53 PM [facility] Creatinine 0.86 0.50 - 1.00 mg/dL 04/28/2018 2:53 PM [facility] GFR Estimate >90 >60 mL/min/1.7m2 04/28/2018 2:53 PM [facility] Comment: Non GFR Calc GFR Estimate If >90 >60 mL/min/1.7m2 04/28/2018 2:53 P M [facility] Black [facility] Comment: GFR Calc Calcium 9.0 (L) 9.1 - 10.3 04/28/2018 2:53 PM [facility] mg/dL [facility] Bilirubin Total 0.8 0.2 - 1.3 04/28/2018 3:05 PM [facility] [place] mg/dL [facility] Albumin 4.2 3.4 - 5.0 g/dL 04/28/2018 2:53 PM [facility] Protein Total 7.8 6.8 - 8.8 g/dL 04/28/2018 3:05 PM [facility] Alkaline Phosphatase 110 65 - 260 U/L 04/28/2018 3:05 PM [facility] ALT 30 0 - 50 U/L 04/28/2018 2:53 PM [facility] AST 36 (H) 0 - 35 U/L 04/28/2018 3:05 PM [facility] Comment: Specimen is hemolyzed which can falsely elevate AST. Analysis of a non-hemolyzed specimen may result in a l ower value. Specimen Anatomical Collection Method Collection Time Receive d Time (Source) Location / / Volume Laterality Blood specimen 04/28/2018 2:24 PM 018 2:29 (specimen) COMMUNITY HEALTH PROGRAM COORDINATOR PM COMMUNITY HEALTH PROGRAM COORDINATOR Randa Umanzor MD LAB - BLOOD ORDERABLES Performing Organization Address City/State/ZIP Code Phon e Number [address] (ABNORMAL) Partial thromboplastin time (04/28/2018 2:24 PM COMMUNITY HEALTH PROGRAM COORDINATOR) P athologist Signature PTT 42 (H) 22 - 37 sec 04/28/2018 [facility] 2:45 PM COMMUNITY HEALTH PROGRAM COORDINATOR [facility] Specimen Anatomical Collection Method Collection Time Receive d Time (Source) Location / / Volume Laterality Blood specimen 04/28/2018 2:24 PM 018 2:29 (specimen) COMMUNITY HEALTH PROGRAM COORDINATOR PM COMMUNITY HEALTH PROGRAM COORDINATOR Randa Umanzor MD LAB - BLOOD ORDERABLES Performing Organization Address City/[facility]/ZIP Code Phon e Number [address] (ABNORMAL) INR (04/28/2018 2:24 PM COMMUNITY HEALTH PROGRAM COORDINATOR) P athologist Signature INR 1.58 (H) 0.86 - 1.14 04/28/2018 [facility] 2:45 PM [facility] Specimen Anatomical Collection Method Collection Time Receive d Time (Source) Location / / Volume Laterality Blood specimen 04/28/2018 2:24 PM 018 2:29 (specimen) COMMUNITY HEALTH PROGRAM COORDINATOR PM COMMUNITY HEALTH PROGRAM COORDINATOR Randa Umanzor MD LAB - BLOOD ORDERABLES Performing Organization Address City/[facility]/ZIP Code Phon e Number [address] Troponin I (04/28/2018 2:24 PM COMMUNITY HEALTH PROGRAM COORDINATOR) P athologist Signature Troponin I ES <0.015 0.000 - 04/28/2018 [facility] 0.045 ug/L 3:05 PM [facility] Comment: The 99th percentile for upper reference range is 0.045 ug/L. ??Troponin values in the range of 0.045 - 0.120 ug/L may b e associated with risks of adverse clinical events. Specimen Anatomical Collection Method Collection Time Receive d Time (Source) Location / / Volume Laterality Blood specimen 04/28/2018 2:24 PM 018 2:29 (specimen) COMMUNITY HEALTH PROGRAM COORDINATOR PM COMMUNITY HEALTH PROGRAM COORDINATOR Randa Umanzor MD LAB - BLOOD ORDERABLES Performing Organization Address City/State/ZIP Code Phon e Number [facility] [address] [place] [address] [facility] CBC with platelets differential (04/28/2018 2:24 PM COMMUNITY HEALTH PROGRAM COORDINATOR) [facility] gist Method Time Signature WBC 7.6 4.0 - 04/28/2018 [facility] 11.0 2:33 PM [facility] 10e9/L [facility] RBC Count 5.70 4.4 - 5.9 04/28/2018 [facility] 10e12/L 2:33 PM [facility] Hemoglobin 16.8 13.3 - 04/28/2018 [facility] 17.7 g/dL 2:33 PM [facility] Hematocrit 49.3 40.0 - 04/28/2018 [facility] 53.0 % 2:33 PM [facility] MCV 87 78 - 100 04/28/2018 [facility] fl 2:33 PM [facility] MCH 29.5 26.5 - 04/28/2018 [facility] 33.0 pg 2:33 PM [facility] MCHC 34.1 31.5 - 04/28/2018 [facility] 36.5 g/dL 2:33 PM [facility] RDW 12.9 10.0 - 04/28/2018 [facility] 15.0 % 2:33 PM [facility] Platelet Count 182 150 - 450 04/28/2018 [facility] 10e9/L 2:33 PM [facility] Diff Method Automated 04/28/2018 [facility] Method 2:33 PM [facility] % Neutrophils 75.6 % 04/28/2018 [facility] 2:33 PM [facility] % Lymphocytes 16.9 % 04/28/2018 [facility] 2:33 PM [facility] % Monocytes 6.0 % 04/28/2018 [facility] 2:33 PM [facility] % Eosinophils 0.9 % 04/28/2018 [facility] 2:33 PM [facility] % Basophils 0.3 % 04/28/2018 [facility] 2:33 PM [facility] % Immature 0.3 % 04/28/2018 [facility] Granulocytes 2:33 PM [facility] Nucleated RBCs 0 0 /100 04/28/2018 [facility] 2:33 PM [facility] Absolute 5.8 1.6 - 8.3 04/28/2018 [facility] Neutrophil 10e9/L 2:33 PM [facility] Absolute 1.3 0.8 - 5.3 04/28/2018 [facility] Lymphocytes 10e9/L 2:33 PM [facility] Absolute 0.5 0.0 - 1.3 04/28/2018 [facility] Monocytes 10e9/L 2:33 PM [facility] Absolute 0.1 0.0 - 0.7 04/28/2018 [facility] Eosinophils 10e9/L 2:33 PM [facility] Absolute 0.0 0.0 - 0.2 04/28/2018 [facility] Basophils 10e9/L 2:33 PM [facility] Abs Immature 0.0 0 - 0.4 04/28/2018 [facility] Granulocytes 10e9/L 2:33 PM [facility] Absolute 0.0 04/28/2018 [facility] Nucleated RBC 2:33 PM [facility] Specimen Anatomical Collection Method Collection Time Receive d Time (Source) Location / / Volume Laterality Blood specimen 04/28/2018 2:24 PM 018 2:29 (specimen) COMMUNITY HEALTH PROGRAM COORDINATOR PM COMMUNITY HEALTH PROGRAM COORDINATOR Randa Umanzor MD LAB - BLOOD ORDERABLES Performing Organization Address City/[facility]/ZIP Code Phon e Number [facility] [address] [place] [address] [facility] Troponin POCT (04/28/2018 2:21 PM COMMUNITY HEALTH PROGRAM COORDINATOR) P athologist Signature Troponin I 0.01 0.00 - 0.08 04/28/2018 POINT OF CARE ug/L 2:43 PM COMMUNITY HEALTH PROGRAM COORDINATOR TEST, HANDHELD METER Specimen Anatomical Collection Method Collection Time Receive d Time (Source) Location / / Volume Laterality 04/28/2018 2:21 PM 8 2:43 COMMUNITY HEALTH PROGRAM COORDINATOR PM COMMUNITY HEALTH PROGRAM COORDINATOR Provider Unknown LAB - ENTER/EDIT POCT Performing Organization Address City/[facility]/ZIP Code Phon e Number [facility] POINT OF CARE TEST, HANDHELD METER POINT OF CARE TEST, HANDHELD METER documented in this encounter Visit Diagnoses Diagnosis Tachycardia Tachycardia, unspecified Atypical chest pain Other chest pain documented in this encounter Administered Medications Inactive Administered Medications - up to 3 most recent administrations Medication Order MAR Action Action Date Dose Rate Site acetaminophen (TYLENOL) tablet 500 Given 04/28/2018 4:56 PM COMMUNITY HEALTH PROGRAM COORDINATOR 500 mg mg 500 mg, Oral, ONCE, On Sat04/28/18 at 1629, For 1 dose, Maximum acetaminophen dose from all sources = 75 mg/kg/day not to exceed 4 gram digoxin (LANOXIN) tablet 250 mcg Given 04/28/2018 4:59 PM COMMUNITY HEALTH PROGRAM COORDINATOR 250 mcg 250 mcg, Oral, ONCE, On Sat04/28/18 at 1619, For 1 dose furosemide (LASIX) half-tab 10 mg Given 04/28/2018 4:58 PM COMMUNITY HEALTH PROGRAM COORDINATOR 10 mg 10 mg, Oral, ONCE, On Sat04/28/18 at 1619, For 1 dose lidocaine (viscous) (XYLOCAINE) 2 % 15 mL, Given 04/28/2018 3:55 PM COMMUNITY HEALTH PROGRAM COORDINATOR 30 mLs alum & mag hydroxide-simethicone (MYLANTA ES/MAALOX ES) 15 mL GI Cocktail 30 mL, Oral, ONCE, On Sat04/28/18 at 1542, For 1 dose metoprolol succinate (TOPROL-XL) 24 hr tablet Given 4:58 PM COMMUNITY HEALTH PROGRAM COORDINATOR 25 mg 25 mg 25 mg, Oral, ONCE, On Sat04/28/18 at 1619, For 1 dose, DO NOT CRUSH. Tablet may be split in half along score line. sildenafil (REVATIO) tablet 20 mg Given 04/28/2018 4:57 PM COMMUNITY HEALTH PROGRAM COORDINATOR 20 mg 20 mg, Oral, ONCE, On Sat04/28/18 at 1619, For 1 dose, Avoid taking with a fatty meal. spironolactone (ALDACTONE) tablet 25 mg Given 04/28/2018 4:57 PM COMMUNITY HEALTH PROGRAM COORDINATOR 25 mg 25 mg, Oral, ONCE, On Sat04/28/18 at 1619, For 1 dose documented in this encounter Active and Recently Administered Medications Times are shown in COMMUNITY HEALTH PROGRAM COORDINATOR. Scheduled Medication Order 04/26/2018 04/27/2018 04/28/2018 acetaminophen (TYLENOL) tablet 500 mg (COMPLETED) 4228 (Given - Provider: Shona Perry RN) 500 mg, Oral, ONCE, 04/28/18 at 1629 , For 1 dose, Maximum acetaminophen dose from all sources = 75 mg/kg/day not to exceed 4 gram digoxin (LANOXIN) tablet 250 mcg (COMPLETED) 1658 (Given - Provider: Shona Perry RN) 250 mcg, Oral, ONCE, 04/28/18 at 1619, For 1 dose furosemide (LASIX) half-tab 10 mg (COMPLETED) 1657 (Given - Provider: Shona Perry RN) 10 mg, Oral, ONCE, 04/28/18 at 1619, For 1 dose lidocaine (viscous) (XYLOCAINE) 2 % 15 m L, alum & mag hydroxide-simethicone (MYLANTA ES/MAALOX ES) 15 mL GI Cocktail (COMPLETED) 1554 (Given - Provider: Shona Perry RN) 30 mL, Oral, ONCE, 04/28/18 at 1542, For 1 dose metoprolol succinate (TOPROL-XL) 24 hr tablet 25 mg (COMPLETED) 1657 (Given - Provider: Shona Perry RN) 25 mg, Oral, ONCE, Sat04/28/18 at 1619, For 1 dose, DO NOT CRUSH. Tablet may be split in half along score line. sildenafil (REVATIO) tablet 20 mg (COMPLETED) 1656 (Given - Provider: Shona Perry RN) 20 mg, Oral, ONCE, 04/28/18 at 1619, For 1 dose, Avoid taking with a fatty meal. spironolactone (ALDACTONE) tablet 25 mg (COMPLETED) 1656 (Given - Provider: Shona Perry RN) 25 mg, Oral, ONCE, Sat04/28/18 at 1619, For 1 dose documented in this encounter Care Teams Coating Mixer Tender Relationship Specialty Start Date End Date Stephen Sauceda PCP - General Pediatrics 03/06/17 06/24/19 [facility] [address] [place] [address] documented as of this encounter
--- OUTSIDE RECORDS SUMMARY | 2022-04-10 09:57 | XMS_ITS | Encounter Summary ---
:2000 Author Organization [place] Address [address] [facility] [place] [address] Care Team Providers Name Role Phone Stephen Sauceda Primary Care Provider Reason for Visit Reason Comments Chest Pain Abdominal Pain Encounter Details Date Type Department Care Team Description 05/14/2018 Emergency [facility] Guille Cortes Abdomin al pain, generalized; [facility] Emergency MD Jaclyn Atypical chest pain; Department [address] [place] [address] Constipation, unspecified co nstipation type [address] [facility] [address] [place] [address] [place], [place] [phone] (Wo rk) Social History Tobacco Use Types Packs/Day Years Used Date Smoking Tobacco: Never Comments: none at home Alcohol Use Standard Drinks/Week Comments No 0 (1 standard drink = 0.6 oz pure alcoho l) Sex Assigned at Date Recorded Male 03/09/2019 1:21 PM CDT documented as of this encounter Last Filed Vital Signs Vital Sign Reading Time Taken Comments Blood Pressure 110/67 05/14/2018 3:26 PM ANNEALING TORCH OPERATOR Pulse 50 05/14/2018 3:26 PM ANNEALING TORCH OPERATOR Temperature 36.5 ??C (97.7 ??F) 05/14/2018 3:26 PM ANNEALING TORCH OPERATOR Respiratory Rate 18 05/14/2018 3:26 PM ANNEALING TORCH OPERATOR Oxygen Saturation 97% 05/14/2018 3:26 PM ANNEALING TORCH OPERATOR Inhaled Oxygen Concentration - - Weight 61.7 kg (136 lb 0.4 oz) 05/14/2018 12:31 PM ANNEALING TORCH OPERATOR Height - - Body Mass Index 23.22 04/30/2018 12:26 PM ANNEALING TORCH OPERATOR Body Mass Index Percentile 64.57 % 05/14/2018 12:[address] Growth Chart: [facility] (Boys, 2-20 Years) documented in this encounter Discharge Instructions Discharge InstructionsStephen Vargas MD - 05/14/2018 3:10 PM ANNEALING TORCH OPERATOR Discharge Information: Emergency Department Jude saw Dr. Vargas and Dr. Guardado for abdominal pain and chest pain. It is unclear what the etiology of his pain is, however we do not think there is an issue with his heart based on his normal troponin, BNP, and EKG. His abdominal X-ray showed a moderate amount of stool throughout his colon, so his abdominal pain may be due to constipation. Please drink fluids as much as possible so that you do not become dehydrated. Home care ??? Mix 1 packet or capful of Miralax powder into 6-8 ounces of any liquid. Take one time a day. This will make the stool (poop) softer and easier to pass. ??? If it does not help: o Increase the Miralax to 2 capfuls in 12-16 ounces of liquid. Take one time a day OR o Increase the Miralax to 1 capful in 6-8 ounces of liquid. Take two times a day. ??? Give more or less Miralax as needed until your child has 1 to 2 soft stools per day. Medicines For pain, Jude can have: ??? Acetaminophen (Tylenol) every 4 to 6 hours as needed (up to 5 doses in 24 hours). His dose is: 2regular strength tabs (650 mg) (43.2+ kg/96+ lb) When to get help Please return to the Emergency Room or contact his regular doctor if he: ??? feels much worse ??? won???t drink ??? can???t keep down liquids ??? goes more than 8 hours without urinating (peeing) ??? has a dry mouth ??? has severe pain Call if you have any other concerns. In 3 to 5 days, if he is not feeling better, [...] of the medicines we are recommending for Lumarina are: Acetaminophen (Tylenol, for fever or pain) [...] using Miralax if you have kidney disease ALING TORCH OPERATOR documented in this encounter Medications at Time [...] Hypoplastic left heart Please supply a small Kabooza e portable tank concentrator. syndrome Patient to receive 2L Oxygen PRN by nasal cannula for family trip to [place]. polyethylene glycol Take 17 g by mouth 30 packet 3 05/14/20 18 08/30/2018 (MIRALAX/GLYCOLAX) packet daily Goal is to achieve one soft bowel movement per day. Can increase or decrease dose as needed. sildenafil (REVATIO) 20 Take 1 tablet (20 [...] Chest M/W/F/sat/sun. 2.5 pain, unspecified type mg / warfarin (COUMADIN) 5 MG Take 1 tablet (5mg) 30 tablet 0 08/30/2018 tabletIndications: every day except Hypoplastic left heart Saturday and syndrome Saturday. Take 1/2 tablet (2.5 mg) every Saturday and Saturday documented as of this encounter ED Notes Shona Perry RN - 05/14/2018 12:33 PM CST Pt was diagnosed with Tripp 2 weeks ago. Since then pt has had chest and abdominal pain. Pt is followed by cardiology, and was referred to come to ED for further evaluation and treatment. ALING TORCH OPERATOR Guille Cortes MD - 05/14/2018 12:24 PM CST History Chief Complaint Patient presents with ??? Chest Pain ??? 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 Ongoing chest pain which is sharp and lasts from seconds to minutes, happens several times per day. Localizes to left side of chest, as well as, left subcostal area. Was seen for similar episodes of pain here 04/28, at that time he was having some tachycardia as well. He had troponin, BNP WNL. CXR was unremarkable and echo was unchanged from previous. He was subsequently seen by Dr. Juarez in clinic on04/30. At that time he had EBV titers drawn secondary to fatigue which were positive. Ziopatch was placed after that visit and was since sent in, results not back yet. At that time he was having heart rate irregularity however he denies palpitations now. They note that at these other visits and with spot checks at home his sats have been around 93% which is a bit low for him (normal mid 90s 95-98). He has had abdominal pain intermittently in the past, however in the past two weeks it has been moreconsistent. He has a history of colitis and abdominal pain, at the beginning of the year he was started on prilosec and over the course of the year his abdominal pain improved. Now he is having sharp in termittent abdominal pain which was initially more generalized a few weeks ago and has since migrated to be more left lower quadrant and lateral. He rates the pain at a 4-5. This morning he was at school when the pain came on, he tried to lie down but the pain did not resolve and so he came here for evaluation. He is not sure when his last stool was, maybe yesterday or the day prior. He reports that his stools are generally hard, but not painful and he does not strain. Last Saturday he went to an outside ED and at that time CMP and CBC were done and reportedly unremarkable. He was given morphine for the pain. Last night they saw his PCP for the pain and his abdomen was felt to be soft, no furtherevaluation was done. He has been taking tylenol which helps both types of pain some. No medicine changes, he reports he has been taking them as prescribed. No vomiting or diarrhea. No fevers, lethargy, dizziness, vision changes, palpitations, lower extremity swelling, syncope, exercise intolerance or shortness of breath with stairs/mild activity. PMHx: Past Medical History: Diagnosis Date ??? 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 Congenital anomalies of spleen Polysplenia ??? Esophageal reflux ??? 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 [...] Current Facility-Administered Medications Medication ??? sodium chloride (PF) 0.9% PF flush 0.2-5 mL ??? sodium chloride (PF) 0.9% PF flush 3 mL Current Outpatient Prescriptions Medication ??? polyethylene glycol (MIRALAX/GLYCOLAX) packet ??? digoxin (LANOXIN) 250 MCG tablet ??? [...] ALLERGIES: Motrin [ibuprofen] and Seasonal allergies IMMUNIZATIONS: MAD by report. SOCIAL HISTORY: Jude lives with his family in [place]. He is in 11th grade. I have reviewed the Medications, Allergies, Past Medical and Surgical History, and Social History inthe Epic system. Review of Systems Please see HPI for pertinent positives and negatives. All other systems reviewed and found to be negative. Physical Exam BP: 118/68 Pulse: 63 Temp: 97.6 ??F (36.4 ??C) Resp: 20 Weight: 61.7 kg (136 lb 0.4 oz) SpO2: 94 % Physical Exam Appearance: Alert and appropriate, [...] bilaterally, with no rales, rhonchi, or wheezing. No tenderness to palpation of chest wall. Cardiovascular: Bradycardic (baseline) and regular rhythm, grade 2 systolic murmur. Normal symmetricperipheral pulses and brisk cap refill. Abdominal: Normal bowel sounds, soft, nontender, nondistended, with no masses and no hepatosplenomegaly. No rigidity or guarding. Neurologic: Alert and oriented, cranial nerves II-XII grossly intact, moving all extremities equallywith grossly normal coordination and normal gait. Extremities/Back: No deformity, no CVA tenderness. Skin: No significant rashes, ecchymoses, or lacerations. Genitourinary: Normal male external genitalia, chele V, with no masses, tenderness, or edema. ED Course ED Course Patient was attended to immediately upon arrival and assessed for immediate life-threatening conditions. Well appearing and well perfused. No red flags on history. EKG obtained, some artifact but overall appears similar to most recent two weeks ago. Cardiology, Dr. Sow, consulted. Plan made to check CBCd, CMP, BNP, troponin as well as obtain AXR. Dr. Sow came to evaluate, at that time abdominal pain was more upper left quadrant. AXR obtained - notable for moderate stool burden in colon, otherwise normal appearing. CMP remarkable only for slightly elevated BUN. CBCd, BNP and troponin unremarkable. Discussed results with Dr. Sow and family. Reassured mother and patient that the pain does not appear to be cardiac in etiology. Procedures Results for orders placed or performed during the hospital encounter of 05/14/18 (from the past 24 hour(s)) EKG 12 lead Result Value Ref Range Interpretation ECG Click View Image link to view waveform and result XR Abdomen 1 View Narrative XR ABDOMEN 1 VW 05/14/2018 1:54 PM HISTORY: Left lower quadrant abdominal pain, hard stools every few days; COMPARISON: 03/10/2010 FINDINGS: 2 supine views of the abdomen and pelvis. There is a moderate amount of colonic stool. Bowel gas pattern is nonobstructive. There is no abnormal calcification or evidence of organomegaly. The lung bases are clear. The visualized bones are normal. Impression IMPRESSION: Moderate colonic stool. GENO CASTELLANOS MD CBC with platelets differential Result Value Ref Range WBC 5.3 4.0 - 11.0 10e9/L RBC Count 5.85 4.4 - 5.9 10e12/L Hemoglobin 17.2 13.3 - 17.7 g/dL Hematocrit 50.4 40.0 - 53.0 % MCV 86 78 - 100 fl MCH 29.4 26.5 - 33.0 pg MCHC 34.1 31.5 - 36.5 g/dL RDW 12.7 10.0 - 15.0 % Platelet Count 170 150 - 450 10e9/L Diff Method Automated Method % Neutrophils 63.5 % % Lymphocytes 25.2 % % Monocytes 9.8 % % Eosinophils 0.9 % % Basophils 0.4 % % Immature Granulocytes 0.2 % Nucleated RBCs 0 0 /100 Absolute Neutrophil 3.4 1.6 - 8.3 10e9/L Absolute Lymphocytes 1.3 [...] Potassium 4.0 3.4 - 5.3 mmol/L Chloride 103 98 - 110 mmol/L Carbon Dioxide 29 20 - 32 mmol/L Anion Gap 6 3 - 14 mmol/L Glucose 82 70 - 99 mg/dL Urea Nitrogen 24 (H) 7 - 21 mg/dL Creatinine 0.91 0.50 - 1.00 mg/dL GFR Estimate >90 >60 mL/min/1.7m2 GFR Estimate If Black >90 >60 mL/min/1.7m2 Calcium 9.4 9.1 - 10.3 mg/dL Bilirubin Total 1.1 0.2 - 1.3 mg/dL Albumin 4.6 3.4 - 5.0 g/dL Protein Total 8.2 6.8 - 8.8 g/dL Alkaline Phosphatase 109 65 - 260 U/L ALT 36 0 - 50 U/L AST 27 0 - 35 U/L Troponin I Result Value Ref Range Troponin I ES <0.015 0.000 - 0.045 ug/L NT proBNP inpatient and ED Result Value Ref Range N-Terminal Pro BNP Inpatient 39 0 - 450 pg/mL Medications sodium chloride (PF) 0.9% PF flush 0.2-5 mL (not administered) sodium chloride (PF) 0.9% PF flush 3 mL (not administered) Critical care time: none Assessments & Plan (with Medical Decision Making) I have reviewed the nursing notes. 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 Troponin, BNP and EKG reassuring against cardiac etiology. His vital signs have remained at baseline for him and he is satting in the mid 90s here. Low concern for other seriouspathology like pulmonary embolism. Pain is not reproducible by palpation. His abdominal pain is concerning for constipation in the setting of shifting abdominal pain, unclear stooling history, and AXR with moderate stool burden. Abdominal exam is overall benign and reassuring against serious pathologylike obstruction. No history of diarrhea or fevers to suggest an infectious etiology or recurrence of colitis. His fatigue and pain may be related to EBV which he tested positive for 2 weeks ago, his fatigue seems to be improving which is reassuring. - Discharge to home - Encourage fluids as much as possible - Prescribed miralax and discussed proper use - Recommended to follow up with PCP or here if worsening symptoms or if there are any concerns I have reviewed the findings, diagnosis, plan and need for follow up with the patient. Discharge Medication List as of 05/14/2018 3:15 PM START taking these medications Details polyethylene glycol (MIRALAX/GLYCOLAX) packet Take 17 g by mouth daily Goal is to achieve one soft bowel movement per day. Can increase or decrease dose as needed., Disp-30 packet, R-3, Local Print Final diagnoses: Abdominal pain, generalized Atypical chest pain Constipation, unspecified constipation type 05/14/2018 [facility] EMERGENCY DEPARTMENT This data was collected [...] note. MD Sophia Salgado Pablo Ureta, MD 05/15/18 1410 ALING TORCH OPERATOR documented in this encounter Plan of Treatment Upcoming Encounters Date Type Specialty Care Team Description 07/27/2022 Ancillary Procedure Cardiology Cordell Juarez MD [facility] [address] [place] [address] (Wo rk) 07/27/2022 Office Visit Cardiology Cordell Juarez MD [facility] [address] [place] [address] (Wo rk) Pending Results Name Type Priority Associated Diagnoses Date/Ti me EKG 12 lead EKG STAT 05/14/2018 12:5 3 PM ANNEALING TORCH OPERATOR documented as of this encounter Procedures Procedure Name Priority Date/Time Associated Comments Diagnosis CBC WITH PLATELETS & STAT 05/14/2018 1:58 PM R esults for this DIFFERENTIAL ANNEALING TORCH OPERATOR procedure are i n the results section. TROPONIN I STAT 05/14/2018 1:58 PM Abdominal pain, Result s for this ANNEALING TORCH OPERATOR generalized procedure are i n the results section. NT PROBNP INPATIENT STAT 05/14/2018 1:58 PM Abdominal pain, Results for this ANNEALING TORCH OPERATOR generalized procedure are i n the results section. COMPREHENSIVE STAT 05/14/2018 1:58 PM Abdominal pain, Resul ts for this METABOLIC PANEL ANNEALING TORCH OPERATOR generalized procedure ar e in the results section. XR ABDOMEN 1 VIEW STAT 05/14/2018 1:54 PM Resu lts for this ANNEALING TORCH OPERATOR procedure are i n the results section. EKG 12-LEAD, TRACING STAT 05/14/2018 12:53 ONLY PM ANNEALING TORCH OPERATOR documented in this encounter Results NT proBNP inpatient and ED (05/14/2018 1:58 PM ANNEALING TORCH OPERATOR) athologist Signature N-Terminal Pro 39 0 - 450 05/14/2018 [facility] BNP Inpatient pg/mL 2:55 PM ANNEALING TORCH OPERATOR [facility] Comment: Reference range shown and [...] Location / / Volume Laterality Blood specimen 05/14/2018 1:58 PM 018 2:27 (specimen) ANNEALING TORCH OPERATOR PM ANNEALING TORCH OPERATOR Stephen Vargas MD LAB - BLOOD ORDERABLES Performing Organization Address City/State/ZIP Code Phon e Number [facility] [address] [place] [address] [facility] Troponin I (05/14/2018 1:58 PM ANNEALING TORCH OPERATOR) athologist Signature Troponin I ES <0.015 0.000 - 05/14/2018 [facility] 0.045 ug/L 2:55 PM ANNEALING TORCH OPERATOR [facility] Comment: The 99th percentile for upper reference range is 0.045 ug/L. ??Troponin values in the range of 0.045 - 0.120 ug/L may b e associated with risks of adverse clinical events. Specimen Anatomical Collection Method Collection Time Receive d Time (Source) Location / / Volume Laterality Blood specimen 05/14/2018 1:58 PM 018 2:27 (specimen) ANNEALING TORCH OPERATOR PM ANNEALING TORCH OPERATOR Stephen Vargas MD LAB - BLOOD ORDERABLES Performing Organization Address City/State/ZIP Code Phon e Number [facility] [address] [place] [address] [facility] (ABNORMAL) Comprehensive metabolic panel (05/14/2018 1:58 PM ANNEALING TORCH OPERATOR) P athologist Signature Sodium 138 133 - 144 05/14/2018 [facility] mmol/L 2:52 PM [facility] Potassium 4.0 3.4 - 5.3 05/14/2018 [facility] mmol/L 2:52 PM [facility] Chloride 103 98 - 110 05/14/2018 [facility] mmol/L 2:52 PM [facility] Carbon Dioxide 29 20 - 32 05/14/2018 [facility] mmol/L 2:52 PM [facility] Anion Gap 6 3 - 14 05/14/2018 [facility] mmol/L 2:52 PM [facility] Glucose 82 70 - 99 05/14/2018 [facility] mg/dL 2:52 PM [facility] Urea Nitrogen 24 (H) 7 - 21 05/14/2018 [facility] mg/dL 2:52 PM [facility] Creatinine 0.91 0.50 - 05/14/2018 [facility] 1.00 mg/dL 2:52 PM [facility] GFR Estimate >90 >60 05/14/2018 [facility] mL/min/1.7 2:[address] Comment: Non GFR Calc GFR Estimate If >90 >60 mL/min/1.7m2 05/14/2018 2:52 P M [facility] Comment: GFR Calc Calcium 9.4 9.1 - 10.3 mg/dL 05/14/2018 2:52 PM [facility] Bilirubin Total 1.1 0.2 - 1.3 mg/dL 05/14/2018 2:52 PM [facility] Albumin 4.6 3.4 - 5.0 g/dL 05/14/2018 2:52 PM [facility] Protein Total 8.2 6.8 - 8.8 g/dL 05/14/2018 2:52 PM [facility] Alkaline Phosphatase 109 65 - 260 U/L 05/14/2018 2:55 PM [facility] ALT 36 0 - 50 U/L 05/14/2018 2:52 PM [facility] AST 27 0 - 35 U/L 05/14/2018 2:52 PM [facility] Specimen Anatomical Collection Method Collection Time Receive d Time (Source) Location / / Volume Laterality Blood specimen 05/14/2018 1:58 PM 018 2:27 (specimen) ANNEALING TORCH OPERATOR PM ANNEALING TORCH OPERATOR Stephen Vargas MD LAB - BLOOD ORDERABLES Performing Organization Address City/State/ZIP Code Phon e Number [facility] [address] [place] [address] [facility] CBC with platelets differential (05/14/2018 1:58 PM ANNEALING TORCH OPERATOR) [facility] gist Method Time Signature WBC 5.3 4.0 - 05/14/2018 [facility] 11.0 2:36 PM [facility] 10e9/L [facility] RBC Count 5.85 4.4 - 5.9 05/14/2018 [facility] 10e12/L 2:36 PM [facility] Hemoglobin 17.2 13.3 - 05/14/2018 [facility] 17.7 g/dL 2:36 PM [facility] Hematocrit 50.4 40.0 - 05/14/2018 [facility] 53.0 % 2:36 PM [facility] MCV 86 78 - 100 05/14/2018 [facility] fl 2:36 PM [facility] MCH 29.4 26.5 - 05/14/2018 [facility] 33.0 pg 2:36 PM [facility] MCHC 34.1 31.5 - 05/14/2018 [facility] 36.5 g/dL 2:36 PM [facility] RDW 12.7 10.0 - 05/14/2018 [facility] 15.0 % 2:36 PM [facility] Platelet Count 170 150 - 450 05/14/2018 [facility] 10e9/L 2:36 PM [facility] Diff Method Automated 05/14/2018 [facility] Method 2:36 PM [facility] % Neutrophils 63.5 % 05/14/2018 [facility] 2:36 PM [facility] % Lymphocytes 25.2 % 05/14/2018 [facility] 2:36 PM [facility] % Monocytes 9.8 % 05/14/2018 [facility] 2:36 PM [facility] % Eosinophils 0.9 % 05/14/2018 [facility] 2:36 PM [facility] % Basophils 0.4 % 05/14/2018 [facility] 2:36 PM [facility] % Immature 0.2 % 05/14/2018 [facility] Granulocytes 2:36 PM [facility] Nucleated RBCs 0 0 /100 05/14/2018 [facility] 2:36 PM [facility] Absolute 3.4 1.6 - 8.3 05/14/2018 [facility] Neutrophil 10e9/L 2:36 PM [facility] Absolute 1.3 0.8 - 5.3 05/14/2018 [facility] Lymphocytes 10e9/L 2:36 PM [facility] Absolute 0.5 0.0 - 1.3 05/14/2018 [facility] Monocytes 10e9/L 2:36 PM [facility] Absolute 0.1 0.0 - 0.7 05/14/2018 [facility] Eosinophils 10e9/L 2:36 PM [facility] Absolute 0.0 0.0 - 0.2 05/14/2018 [facility] Basophils 10e9/L 2:36 PM [facility] Abs Immature 0.0 0 - 0.4 05/14/2018 [facility] Granulocytes 10e9/L 2:36 PM [facility] Absolute 0.0 05/14/2018 [facility] Nucleated RBC 2:36 PM [facility] Specimen Anatomical Collection Method Collection Time Receive d Time (Source) Location / / Volume Laterality Blood specimen 05/14/2018 1:58 PM 018 2:27 (specimen) ANNEALING TORCH OPERATOR PM ANNEALING TORCH OPERATOR Stephen Vargas MD LAB - BLOOD ORDERABLES Performing Organization Address City/State/ZIP Code Phon e Number [facility] [address] [place] [address] [facility] XR Abdomen 1 View (05/14/2018 1:54 PM ANNEALING TORCH OPERATOR) Anatomical Region Laterality Modality Abdomen/Pelvis Computed Radiography Specimen (Source) Anatomical Location Collection Method / Collectio n Time Received Time / Laterality Volume Impressions 05/14/2018 2:01 PM ANNEALING TORCH OPERATOR IMPRESSION: Moderate colonic stool. GENO CASTELLANOS MD Narrative 05/14/2018 2:01 PM ANNEALING TORCH OPERATOR XR ABDOMEN 1 VW ??05/14/2018 1:54 PM ?? HISTORY: Left lower quadrant abdominal p ain, hard stools every few days; COMPARISON: 03/10/2010 FINDINGS: 2 supine views of the abdomen and pelvis . There is a moderate amount of colonic stool. Bowel gas pattern is n onobstructive. There is no abnormal calcification or evidence of or ganomegaly. The lung bases are clear. The visualized bones are normal. Procedure Note Geno Castellanos MD - 05/14/2018Forma tting of this note might be different from the original. XR ABDOMEN 1 VW 05/14/2018 1:54 PM HISTORY: Left lower quadrant abdominal p ain, hard stools every few days; COMPARISON: 03/10/2010 FINDINGS: 2 supine views of the abdomen and pelvis . There is a moderate amount of colonic stool. Bowel gas pattern is n onobstructive. There is no abnormal calcification or evidence of or ganomegaly. The lung bases are clear. The visualized bones are normal. IMPRESSION: Moderate colonic stool. GENO CASTELLANOS MD Stephen Vargas MD IMG DIAGNOSTIC IMAGING ORDER BHAVESH documented in this encounter Visit Diagnoses Diagnosis Abdominal pain, generalized Atypical chest pain Other chest pain Constipation, unspecified constipation t ype documented in this encounter Administered Medications Inactive Administered Medications - up to 3 most recent administrations Medication Order MAR Action Action Date Dose Rate Site sodium chloride (PF) 0.9% PF flush 0.2-5 mL 0.2-5 mL, Intracatheter, EVERY 5 MIN PRN, line flush, post meds or blood draw, Starting on Sat05/14/18 at 1339, for pe ripheral IV line flush post IV meds. 0.2-3 mL post IV meds. 0.2-5 mL post blood evangelist w. Volume is dependent on catheter size. sodium chloride (PF) 0.9% PF flush 3 mL 3 mL, Intracatheter, EVERY 8 HOURS, First dose on Sat05/14/18 at 1342, And Q1H PRN, to lock peripheral IV dormant line. documented in this encounter Active and Recently Administered Medications Times are shown in ANNEALING TORCH OPERATOR. Scheduled Medication Order 05/12/2018 05/13/2018 05/14/2018 sodium chloride (PF) 0.9% PF flush 3 mL 1342 (Canceled Entry - Provider: Orders Generic Provider - Comment: Automatically canceled at discontinue of medication order) 3 mL, Intracatheter, EVERY 8 HOURS, Firs t dose on Sat05/14/18 at 1342, And Q1H PRN, to lock peripheral IV dormant line. PRN Medication Order 05/12/2018 05/13/2018 05/14/2018 sodium chloride (PF) 0.9% PF flush 0.2-5 mL 0.2-5 mL, Intracatheter, EVERY 5 MIN PRN , line flush, post meds or blood draw, Starting Sat05/14/18 at 1339, for peripheral IV line flush post IV meds. 0.2-3 mL post IV meds. 0.2-5 mL post blood draw. Volume is dependent on catheter size. documented in this encounter Care Teams Engine Inspector Relationship Specialty Start Date End Date Stephen Sauceda PCP - General Pediatrics 03/06/17 06/24/19 [facility] [address] [place] [address] documented as of this encounter
--- OUTSIDE RECORDS SUMMARY | 2022-04-10 09:57 | XMS_ITS | Encounter Summary ---
:2000 Author Organization [place] Address [facility] [place] [address] Care Team Providers Name Role Phone Komal, Stephen Grant Primary Care Provider Reason for Visit Reason Comments RECHECK Hypoplastic left heart synd claritza Encounter Details Date Type Department Care Team Description 04/30/2018 Office Visit [facility] Cordell Juarez Atri al tachycardia Pediatric Specialty (H) (Primary Dx) Clinic [address] [place] [id number] [phone] Social History Tobacco Use Types Packs/Day Years Used Date Smoking Tobacco: Never Comments: none at home Alcohol Use Standard Drinks/Week Comments No 0 (1 standard drink = 0.6 oz pure alcoho l) Sex Assigned at Date Recorded Male 03/09/2019 1:21 PM CDT documented as of this encounter Last Filed Vital Signs Vital Sign Reading Time Taken Comments Blood Pressure 110/66 04/30/2018 12:26 PM OUTPATIENT PHYSICAL THERAPIST ASSISTANT Pulse 72 04/30/2018 12:26 PM OUTPATIENT PHYSICAL THERAPIST ASSISTANT Temperature - - Respiratory Rate 20 04/30/2018 12:26 PM OUTPATIENT PHYSICAL THERAPIST ASSISTANT Oxygen Saturation 95% 04/30/2018 12:26 PM OUTPATIENT PHYSICAL THERAPIST ASSISTANT Inhaled Oxygen Concentration - - Weight 62.7 kg (138 lb 3.7 oz) 04/30/2018 12:26 PM OUTPATIENT PHYSICAL THERAPIST ASSISTANT Height 163 cm (5' 4.17) 04/30/2018 12:26 PM OUTPATIENT PHYSICAL THERAPIST ASSISTANT Body Mass Index 23.6 04/30/2018 12:26 PM OUTPATIENT PHYSICAL THERAPIST ASSISTANT Body Mass Index Percentile 68.81 % 04/30/2018 12:[address] Growth Chart: CDC (Boys, 2-20 Years) documented in this encounter Progress Notes Cordell Juarez MD - 04/30/2018 12:30 PM CST Pediatric Cardiology Visit Patient: Jude Bills Date of : 2000 Age: 16 years 7 months Date of Visit: Apr 30, 2018 PCP: Ana Li [place] Dear Dr. Winchester, I had the pleasure of seeing your patient, Jude Bills, in the Pediatric Cardiology Clinic at the [facility] on Apr 30, 2018. 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 He underwent a central shunt, followed by a Fortino procedure and completion of a Fontan procedure at the [facility] in early childhood assistant. He had catheter closure of his Fontan fenestration at the [facility] in January 2007. Jude has had some episodes of atrial tachycardia that improvedon metoprolol. His recent chest pain, swelling, and exercise intolerance improved on lasix, sildenafil and omeprazole. Recently he has been bothered by ongoing episodes of chest pain and palpitations. He is here today with a one week history of Fatigue, headaches, poor appetite and intermittent abdominal pain. Seen in [facility] ER Saturday with acute chest pain and tachycardia (had not taken am metoprolol)after 4-5 days of increased fatigue, headaches, puffiness, poor appetite. No syncope, prior sustained tachycardia. Intermittent stabbing throbbing chest pain. Overall he continues to feel really poorly. No fevers, vomiting, diarrhea, abdominal swelling. 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 Jude is currently in 12th grade and he has an IEP. He is not active in any sports right now. Prescription Medications as of 04/30/2018 digoxin (LANOXIN) 250 MCG tablet Take 1 tablet (250 mcg) by mouth daily furosemide (LASIX) 20 MG tablet Take 0.5 tablets (10 mg) by mouth daily metoprolol (TOPROL-XL) 25 MG 24 hr tablet Take 1 tablet (25 mg) by mouth daily Montelukast Sodium (SINGULAIR PO) omeprazole (PRILOSEC) 20 MG CR capsule Take 1 capsule twice daily for one week then once daily order for DME Equipment being ordered: Oxygen, cannula, and supplies for administration. Please supply a small [employer] concentrator. Patient to receive 2L Oxygen PRN by nasal cannula for family trip to [place]. sildenafil (REVATIO) 20 MG tablet Take 1 tablet (20 mg) by mouth three times daily for pulmonary hypertension. Never use with nitroglycerin, terazosin or doxazosin. spironolactone (ALDACTONE) 25 MG tablet Take 1 tablet (25 mg) by mouth daily warfarin (COUMADIN) 5 MG tablet Take 5 mg daily ///sat/sun. 2.5 mg / warfarin (COUMADIN) 5 MG tablet Take 1 tablet (5mg) every day except Saturday and Saturday. Take 1/2 tablet (2.5 mg) every Saturday and Saturday Taking 20 mg lasix daily FH/SH: Jude and his family live in [place]. His mother is a nurse at [employer]. They are planning lots of travel this summer. He will be starting his senior year next fall. His height is 1.63 m (5' 4.17) and weight is 62.7 kg (138 lb 3.7 oz). His blood pressure is 110/66 and his pulse is 72. His respiration is 20 and oxygen saturation is 95%. His body mass index is 23.6 kg/(m^2). His body surface area is 1.68 meters squared. In general, he is a [...] perfused with trace edema and good capillary refill. He is tired and clearly not feeling well, but oriented and responsive. He moves all extremities equally withnormal tone. A 12-lead ECG was obtained today which revealed sinus rhythm at a rate of 60 beats per minute, left axis deviation, RVH with strain pattern and interventricular conduction delay, and flattened/ inverted T waves in lateral leads. Overall, this is unchanged from prior ECG's. Zio 03/13/17- Atrial tach at 167 bpm. Symptoms were with PAC's or sinus rhythm. Discussed with EP (Henry) she recommended continue anticoagulation with warfarin and continue to monitor. Repeat EP study if worsening symptoms. Zio 06/24/17 - NSR with average HR 65 (35-166). Rare single ectopic beats. No block or tachyarrhythmias. An echocardiogram performed in the ER 04/28 was unchanged from prior echos. Double outlet right ventricle, transposition of the [...] thrombus. No significant change from last echocardiogram. Labs: Cath Data 01/2016: Fontan pressures 14 mean, PAP 14 mean LV EDP 10 CI 3.1 L/min/m2. CXR 04/28, no acute changes. Fractured inferior sternal wire. Labs: Increased HgB, 18.0, Normal IgG CMP normal 04/28 with alb 4.2, BUN 24 EBV nuc ag- positive, capsid ag- likely prior EBV infection. Impression and Plan: Jude is an 18yo male s/p fenestrated fontan for heterotaxy, DORV, d-TGA, pulmonary stenosis and LV hypoplasia. He had device occlusion of his fenestration and has been bothered the last several years by palpitations and chest pain. He imrpoved initially on his current medical regimen. Has had approximately one week of worsening symptoms including fatigue, headaches, abdominal pain without fever. 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 Possible viral syndrome, no evidence of acute heart failure. Dehydrated- poor po intake. Recommendations: Continued rest, improve hydration, continue current medications, will place zio patch recorder and consider repeat heart catheterization if no improvement with time and hydration. 1.Continue anticoagulation with coumadin for goal INR 2-2.5 2. Metoprolol XR 25 mg daily 3. Continue Sildenafil 20 mg tid - will try and obtain preauthorization for tadalafil 4. Continue lasix, digoxin 5. Continue omeprazole for gastritis/pain 6. To ER if sustained arrhythmias, syncope, or new symptoms. 7. Antibiotics for SBE prophylaxis 8. F/U 4-6 months with labs. 9. No exercise restrictions. Stop and rest when fatigued. Drink plenty of non caffeinated fluids. Sincerely, Cordell Juarez M.D. Infection Preventionist of Pediatrics Pediatric and Adult Congenital Cardiology [facility] Pediatric Cardiology Office [phone] Adult Congenital Cardiology Triage and Scheduling [phone] Addendum: zio patch Holter placed: Average HR 69 (41-144) rare ectopy, howevr 2 ventricular triplets. WOuld repeat in 4-6 months or if worsening symptoms. JLL ATIENT PHYSICAL THERAPIST ASSISTANT documented in this encounter Procedure Notes Cordell Juarez MD - 04/30/2018 12:30 PM CST Pediatric Cardiology Visit NOT yet UPDATED Patient: Jude Bills Date of : 2000 Age: 16 years 7 months Date of Visit: Apr 30, 2018 PCP: Ana Li [place] Dear Dr. Winchester, I had the pleasure of seeing your patient, Jude Bills, in the Pediatric Cardiology Clinic at the [facility] on Apr 30, 2018. Jude is a 18 year old young man who was born with double outlet right ventricle, left ventricular hypoplasia, d-transposition of the great vessels and pulmonary steno sis. He underwent a central shunt, followed by a Fortino procedure and completion of a Fontan procedure at the [facility] in early childhood assistant. He had catheter closure of his Fontan fenestration at the [facility] in January 2007. Jude is here today for a follow up visit after evaluation for ongoing episodes of chest pain and irregular heart rate. His last visit to the ED was 06/21. Since that time he has started both prilosec and sildenafil 20 mg tid and he reports improvement in the episodes. He does not feel dizzy or have visual changes or headache. No syncope, no exercise intolerance, no ankle swelling, no abdominal pain. Palpitations improved. Jude feels like he does have improved exercise tolerance. Jude has had repeated rhythm monitoring, he has a slow baseline HR with salvos of atrial tachycardia. He is on low dose metoprolol. I did discuss this with Dr. López with EP who requested we restart him on warfarin- we tried ASA again and it was not well tolerated. 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 Jude is currently in 11th grade and he has an IEP. He plays baseball, but is no longer playing basketball. 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 Prescription Medications as of 05/27/2018 Rx Number Disp Refills Start End Last Dispensed Date Next Fill Date Owning Pharmacy digoxin (LANOXIN) 250 MCG tablet 30 tablet 11 11/30/2017 [facility] [address] [place] [address] 3 Sig: Take 1 tablet (250 mcg) by mouth daily Class: E-Prescribe Route: Oral furosemide (LASIX) 20 MG tablet 45 tablet 3 05/29/2017 [facility] [address] [place] [address] 3 Sig: Take 0.5 tablets (10 mg) by mouth daily Class: E-Prescribe Route: Oral metoprolol (TOPROL-XL) 25 MG 24 hr tablet 90 tablet 3 05/29/2017 [facility] [address] [place] [address] 3 Sig: Take 1 tablet (25 mg) by mouth daily Class: E-Prescribe Route: Oral Montelukast Sodium (SINGULAIR PO) Class: Historical Route: Oral omeprazole (PRILOSEC) 20 MG CR capsule 90 capsule 3 08/14/2017 [facility] [address] [place] [address] 3 Sig: Take 1 capsule twice daily for one week then once daily Class: E-Prescribe order for DME 1 Device 0 01/15/2018 Sig: Equipment being ordered: Oxygen, cannula, and supplies for administration. Please supply a small [employer] portable tank concentrator. Patient to receive 2L Oxygen PRN by nasal cannula for family trip to [place]. Class: Local Print polyethylene glycol (MIRALAX/GLYCOLAX) packet 30 packet 3 05/14/2018 Sig: Take 17 g by mouth daily Goal is to achieve one soft bowel movement per day. Can increase or decrease dose as needed. Class: Local Print Route: Oral sildenafil (REVATIO) 20 MG tablet 90 tablet 11 06/21/2017 [facility] [address] [place] [address] 3 Sig: Take 1 tablet (20 mg) by mouth three times daily for pulmonary hypertension. Never use with nitroglycerin, terazosin or doxazosin. Class: E-Prescribe spironolactone (ALDACTONE) 25 MG tablet 30 tablet 11 09/25/2017 [facility] [address] [place] [address] 3 Sig: Take 1 tablet (25 mg) by mouth daily Class: E-Prescribe Route: Oral warfarin (COUMADIN) 5 MG tablet 90 tablet 3 08/14/2017 [facility] [address] [place] [address] 3 Sig: Take 5 mg daily M///sat/sun. 2.5 mg / Class: E-Prescribe warfarin (COUMADIN) 5 MG tablet 30 tablet 01/20/2016 [facility] [address] Sig: Take 1 tablet (5mg) every day except Saturday and Saturday. Take 1/2 tablet (2.5 mg) every Saturday and Saturday Class: Historical FH/SH: Luke and his family live in [place]. His mother is a nurse at [employer]. They are planning lots of travel this summer. He will be starting his senior year next fall. His height is 1.63 m (5' 4.17) and weight is 62.7 kg (138 lb 3.7 oz). His blood pressure is 110/66 and his pulse is 72. His respiration is 20 and oxygen saturation is 95%. His body mass index is 23.6 kg/m??. His body surface area is 1.68 meters squared. In general, he is a very well-appearing young man with no central or peripheral cyanosis. Head and neck examination is unremarkable. Pupils are reactive and sclera are not jaundiced. There is no conjunctival injection or discharge. Mucous membranes are moist and pink. Lungs are clear to auscultation bilaterally. He [...] warm and well perfused with no edema or clubbing and good capillary refill. He is alert and oriented and moves all extremities equally with normal tone. A 12-lead ECG was obtained today which revealed sinus bradycardia at a rate of 55 beats per minute, left axis deviation, RVH with strain pattern and interventricular conduction delay, and flattened/ inverted T waves in lateral leads. Overall, this is unchanged from prior ECG's. o 03/13/17- Atrial tach at 167 bpm. Symptoms were with PAC's or sinus rhythm. Discussed with EP (Henry) she recommended continue anticoagulation with warfarin and continue to monitor. Repeat EP study if worsening symptoms. Zio 06/24/17 - NSR with average HR 65 (35-166). Rare single ectopic beats. No block or tachyarrhythmias. An echocardiogram performed today was unchanged from prior echos. Double outlet right ventricle, transposition of the great arteries (D-TGA) and a large anterior malalignment ventricular septal defect status after Fontan operation. Previous device closure of Fontan fenestration. The Fontan fenestration device is in good position. There is laminar phasic color flow in the Fortino shunt. The right ventricle has qualitatively mildly depressed contractility. Upper mild tricuspid valve insufficiency. No pericardial Effusion. No change rom last echocardiogram.. Labs: Cath Data 01/2016: Fontan pressures 14 mean, PAP 14 mean LV EDP 10 CI 3.1 L/min/m2. Impression and Plan: Jude is a 18 yo male s/p fenestrated fontan for heterotaxy, DORV, d-TGA, pulmonary stenosis and LV hypoplasia. He had device occlusion of his fenestration and has been bothered the last several years by palpitations and chest pain. He is imrpoved on his current medical regimen. Recommendations: 1.Continue anticoagulation with coumadin for goal INR 2-2.5 2. Metoprolol XR 25 mg daily 3. Continue Sildenafil 20 mg tid - will try and obtain preauthorization for tadalafil 4. Continue lasix, digoxin 5. Continue omeprazole for gastritis/pain 6. To ER if sustained arrhythmias, syncope, or new symptoms. 7. Antibiotics for SBE prophylaxis 8. Labs today INcrease fluid intake Zio patch monitor COnsuder cath if no improvement 9. No exercise restrictions. Stop and rest when fatigued. Drink plenty of non caffeinated fluids. Sincerely, Cordell Juarez M.D. Infection Preventionist of Pediatrics Pediatric and Adult Congenital Cardiology [facility] Pediatric Cardiology Office [phone] Adult Congenital Cardiology Triage and Scheduling [phone] ATIENT PHYSICAL THERAPIST ASSISTANT documented in this encounter Nursing Notes Kim Summers MA - 04/30/2018 12:30 PM CST Informant- Jude is accompanied by mother Reason for Visit- Hypoplastic left heart syndrome Vitals signs- BP 110/66 Pulse 72 Resp 20 Ht 1.63 m (5' 4.17) Wt 62.7 kg (138 lb 3.7 oz) SpO2 95% BMI 23.6 kg/m2 There are concerns about the child's exposure to violence in the home: No Face to Face time: 5 minutes Kim Summers MA ATIENT PHYSICAL THERAPIST ASSISTANT documented in this encounter Plan of Treatment Upcoming Encounters Date Type Specialty Care Team Description 07/27/2022 Ancillary Procedure Cardiology Cordell Juarez MD [id number] [place], [place] [address] (Wo rk) 07/27/2022 Office Visit Cardiology Cordell Juarez MD [address] [facility] [place], [place] [id number] (Wo rk) documented as of this encounter Procedures Procedure Name Priority Date/Time Associated Diagnosis [facility]me [facility]ts [facility] Routine 04/30/2018 Atrial tachycardia Results for this REPORT, SUBSEQUENT - ED (H) proc edure are in ONLY the results section. documented in this encounter Results IgG (04/30/2018 2:23 PM OUTPATIENT PHYSICAL THERAPIST ASSISTANT) P athologist Signature IGG 1,518 675 - 1,620 05/01/2018 [facility] mg/dL 9:37 AM [facility] Specimen Anatomical Collection Method Collection Time Receive d Time (Source) Location / / Volume Laterality Blood specimen 04/30/2018 2:23 PM 018 2:24 (specimen) OUTPATIENT PHYSICAL THERAPIST ASSISTANT PM OUTPATIENT PHYSICAL THERAPIST ASSISTANT Cordell Juarez MD LAB - BLOOD ORDERABLES Performing Organization Address City/State/ZIP Code Phon e Number [facility] [address] [place] [address] [facility] ELECTROCARDIOGRAM REPORT (04/30/2018) Specimen (Source) Anatomical Location Collection Method / Collectio n Time Received Time / Laterality Volume 04/30/2018 Narrative This result has an attachment that is no t available. Cordell Juarez MD PROCEDURES documented in this encounter Visit Diagnoses Diagnosis Atrial tachycardia (H) - Primary Other specified cardiac dysrhythmias documented in this encounter Care Teams Gear Nicker Relationship Specialty Start Date End Date Stephen Sauceda PCP - General Pediatrics 03/06/17 06/24/19 [facility] [address] [place] [address] documented as of this encounter
--- OUTSIDE RECORDS SUMMARY | 2022-04-10 09:57 | XMS_ITS | Encounter Summary ---
:2000 Author Organization [place] Address [facility] [place] [address] Care Team Providers Name Role Phone KomalStephen Primary Care Provider Encounter Details Date Type Department Care Team Description 01/14/2018 Orders Only [facility] Cordell Juarez Hypo plastic left Pediatric Specialty MD heart syndrome Clinic [address] (Primary Dx) [address] [facility] [place] [id number] [phone] Social History Tobacco Use Types Packs/Day Years [...] 07/27/2022 Ancillary Procedure Cardiology Cordell Juarez MD [address] [place] [id number] [place] [address] (Wo rk) 07/27/2022 Office Visit Cardiology LarryCordell MD [address] [place] [address] (Wo rk) documented as of this encounter 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 Care Teams Budget Controller Relationship Specialty Start Date End Date Stephen Sauceda PCP - General Pediatrics 03/06/17 06/24/19 [facility] [address] [place] [address] documented as of this encounter
--- OUTSIDE RECORDS SUMMARY | 2022-04-10 09:57 | XMS_ITS | Encounter Summary ---
:2000 Author Organization [place] Address [facility] [place] [address] Care Team Providers Name Role Phone Stephen Sauceda Primary Care Provider Reason for Visit Reason Onset Date Comments Refill Request 09/25/2017 Encounter Details Date Type Department Care Team Description 09/25/2017 Refill [facility] Cordell Juarez MD Refill Request Pediatric Specialty Clinic [address] [place] [address] [id number] [facility] [place] [phone] Social History Tobacco Use Types Packs/Day [...] 07/27/2022 Ancillary Procedure Cardiology Cordell Juarez MD [address] [place] [id number] (Wo rk) 07/27/2022 Office Visit Cardiology LarryCordell blum MD [address] [place] [address] (Wo rk) documented as of this encounter 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 Care Teams Bioinformaticist Relationship Specialty Start Date End Date Stephen Sauceda PCP - General Pediatrics 03/06/17 06/24/19 [facility] [address] [place] [address] documented as of this encounter
--- OUTSIDE RECORDS SUMMARY | 2022-04-10 09:57 | XMS_ITS | Encounter Summary ---
:2000 Author Organization [place] Address [address] [place] [address] Care Team Providers Name Role Phone KomalStephen Primary Care Provider Reason for Referral - Closed Specialty Diagnoses / Procedures Referred By Contact Refer red To Contact Cardiology Diagnoses Hypoplastic left heart syndrome Tachycardia Cordell Juarez MD Zz Rh Echocardiography Procedures Echo pediatric congenital [facility] [address] [place], [place] [address] [place] [address] Phone: Referral ID Status Reason Start Date Expiration Date Visits Requ ested Visits Authorized [id number] Closed 10/30/2017 10/30/2018 1 1 Reason for Visit Reason Comments RECHECK Hypoplastic left heart syndr ome Encounter Details Date Type Department Care Team Description 10/30/2017 Office Visit [facility] Cordell Juarez, Emi plastic left heart syndrome (Primary Dx); Pediatric Specialty Tachycardia; Clinic [place] 2450 [facility] SVT (supraventricular tachyc ardia) (H) [address] [place] [address] [phone] Social History Tobacco Use Types Packs/Day Years Used Date Smoking Tobacco: Never Comments: none at home Alcohol Use Standard Drinks/Week Comments No 0 (1 standard drink = 0.6 oz pure alcoho l) Sex Assigned at Date Recorded Male 03/09/2019 1:21 PM CDT documented as of this encounter Last Filed Vital Signs Vital Sign Reading Time Taken Comments Blood Pressure 137/74 10/30/2017 2:31 PM CDT right leg Pulse 62 10/30/2017 2:25 PM CDT Temperature - - Respiratory Rate 18 10/30/2017 2:25 PM CDT Oxygen Saturation 95% 10/30/2017 2:25 PM CDT Inhaled Oxygen Concentration - - Weight 58 kg (127 lb 13.9 oz) 10/30/2017 2:25 PM CDT Height 162.5 cm (5' 3.98) 10/30/2017 2:25 PM CDT Body Mass Index 21.96 10/30/2017 2:25 PM CDT Body Mass Index Percentile 53.44 % 10/30/2017 2:25 PM CD T Growth Chart: CDC (Boys, 2-20 Years) documented in this encounter Progress Notes Cordell Juarez MD - 10/30/2017 2:15 PM CDT Pediatric Cardiology Visit Patient: Jude Bills Date of : 2000 Age: 16 years 7 months Date of Visit: October 30, 2017 PCP: Ana Li [place] Dear Dr. Winchester, I had the pleasure of seeing your patient, Jude Bills, in the Pediatric Cardiology Clinic at the [facility] on October 30, 2017. 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 He underwent a central shunt, followed by a Fortino procedure and completion of a Fontan procedure at the [facility] in regional education manager. He had catheter closure of his Fontan fenestration at the [facility] in January 2007. Jude is here today [...] no longer playing basketball. 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 Prescription Medications as of 10/30/2017 digoxin (LANOXIN) 250 MCG tablet Take 1 tablet (250 mcg) by mouth daily furosemide (LASIX) 20 MG tablet Take 0.5 tablets (10 mg) by mouth daily metoprolol (TOPROL-XL) 25 MG 24 hr tablet Take 1 tablet (25 mg) by mouth daily Montelukast Sodium (SINGULAIR PO) omeprazole (PRILOSEC) 20 MG CR capsule Take 1 capsule twice daily for one week then once daily sildenafil (REVATIO) 20 MG tablet Take 1 tablet (20 mg) by mouth three times daily for pulmonary hypertension. Never use with nitroglycerin, terazosin or doxazosin. spironolactone (ALDACTONE) 25 MG tablet Take 1 tablet (25 mg) by mouth daily warfarin (COUMADIN) 5 MG tablet Take 1 tablet (5mg) every day except Saturday and Saturday. Take 1/2 tablet (2.5 mg) every Saturday and Saturday warfarin (COUMADIN) 5 MG tablet Take 5 mg daily ///sat/sun. 2.5 mg tues/thurs FH/SH: Jude and his family live in [place]. His mother is a nurse at [employer]. They are planning lots of travel this summer. He will be starting his senior year next fall. His height is 1.625 m (5' 3.98) and weight is 58 kg (127 lb 13.9 oz). His blood pressure is 137/74 and his pulse is 62. His respiration is 18 and oxygen saturation is 95%. His body mass index is 21.96kg/(m^2). His body surface area is 1.62 meters squared. In general, he is a [...] grade 2/6 systolic ejection murmur at the leftupper sternal border, and no rubs, gallops or diastolic murmurs. Abdominal examination is benign with no hepatosplenomegaly or masses. Radial and femoral pulses are normal and extremities are warm and well perfused with no edema or clubbing and good capillary refill. He is alert and oriented and movesall extremities equally with normal tone. A 12-lead [...] L/min/m2. Impression and Plan: Jude is a 17yo male s/p fenestrated fontan for heterotaxy, DORV, d-TGA, pulmonary stenosis and LV hypoplasia. He had device occlusion of his fenestration and has been bothered the last several years bypalpitations and chest pain. He is imrpoved on [...] non caffeinated fluids. Sincerely, Cordell Juarez M.D. [employer] Radio Operator of Pediatrics Pediatric and Adult Congenital Cardiology [facility] Pediatric Cardiology Office [phone] Adult Congenital Cardiology Triage and Scheduling [phone] documented in this encounter Nursing Notes Kim Summers MA - 10/30/2017 2:15 PM CDT Informant- Jude is accompanied by mother Reason for Visit- Hypoplastic left heart syndrome Vitals signs- BP 105/65 Pulse 62 Resp 18 Ht 1.625 m (5' 3.98) Wt 58 kg (127 lb 13.9 oz) SpO2 95% BMI 21.96 kg/m2 There are concerns about the child's exposure to violence in the home: No Face to Face time: 5 minutes Kim Summers MA documented in this encounter Plan of Treatment Upcoming Encounters Date Type Specialty Care Team Description 07/27/2022 Ancillary Procedure Cardiology Cordell Juarez MD [address] [place] [address] (Wo rk) 07/27/2022 Office Visit Cardiology Cordell Juarez MD [address] [place] [address] (Wo rk) documented as of this encounter Procedures Procedure Name Priority Date/Time Associated Diagnosis Comme nts ZZHC ELECTROCARDIOGRAM Routine 10/30/2017 Hypoplastic left R esults for this REPORT, SUBSEQUENT - ED heart sy ndrome procedure are in ONLY Tachycardia the results section. documented in this encounter Results Echo pediatric congenital (10/30/2017 3:11 PM CDT) Anatomical Region Laterality Modality Echocardiography Specimen (Source) Anatomical Collection Method Collection Time Re ceived Time Location / / Volume Laterality 10/30/2017 2:34 PM CDT Narrative 10/30/2017 5:06 PM CDT [id number]^JAVIER^CORDELL^RYAN ?Study ID: [id number] ?[facility] ?[facility] ?[address] ?[place] [address] ? Pediatric Echocardiogram __ Name: JUDE BILLS Study Date: 10/30/2017 02:34 PM ? Patient Location: [facility] ? Age: 17 yrs : 2000 ? BP: 105/65 mmHg Gender: Male Patient Class: Outpatient ? Height: 64 in Ordering Provider: CORDELL JUAREZ ?Weight: 128 lb Referring Provider: CORDELL JUAREZ ? BSA: 1.6 m2 Performed By: Amanda Crawford RDCS Report approved by: Jayme moseley MD Reason For Study: , Hypoplastic left hea rt syndrome, Tachycardia __ CONCLUSIONS Double outlet right ventricle, transposi tion of the great arteries (D-TGA) and a large anterior malalignment ventricula r septal defect status status post fenestrated Fontan operation. Previous d evice closure of Fontan fenestration. The Fontan fenestration device is in goo d position. There is laminar phasic color flow in the Fortino shunt. The right ventricle has qualitatively mildly depressed contractility. Upper mild tric uspid valve insufficiency. No pericardial effusion. There is [...] No pericardial effusion. Doppler Measurements & Calculations Ao V2 max: 87.9 cm/sec ?LV dP/dt: 1515 mmHg/s Ao max P.1 mmHg desc Ao max dhruv: 96.4 cm/sec desc Ao max P.7 mmHg Report approved by: Jayme moseley MDon 10/30/2017 05:06 PM Procedure Note Kofi Swan MD - 10/30 [id number] [facility] [id number]^JAVIER^CORDELL^RYAN Study ID: [id number] [facility] [place] [address] Pediatric Echocardiogram __ Name: JUDE BILLS Study Date: 10/30/2017 02:34 PM Patient Location: [facility] Age: 17 yrs : 2000 BP: 105/65 mmHg Gender: Male Patient Class: Outpatient Height: 64 in Ordering Provider: CORDELL JUAREZ Weight: 1 28 lb Referring Provider: CORDELL JUAREZ BS A: 1.6 m2 Performed By: Amanda Crawford RDCS Report approved by: Jayme moseley MD Reason For Study: , Hypoplastic left hea rt syndrome, Tachycardia __ CONCLUSIONS Double outlet right ventricle, transposi tion of the great arteries (D-TGA) and a large anterior malalignment ventricula r septal defect status status post fenestrated Fontan operation. Previous d evice closure of Fontan fenestration. The Fontan fenestration device is in goo d position. There is laminar phasic color flow in the Fortino shunt. The right ventricle has qualitatively mildly depressed contractility. Upper mild tric uspid valve insufficiency. No pericardial effusion. There is [...] No pericardial effusion. Doppler Measurements & Calculations Ao V2 max: 87.9 cm/sec LV dP/dt: 1515 mm Hg/s Ao max P.1 mmHg desc Ao max dhruv: 96.4 cm/sec desc Ao max P.7 mmHg Report approved by: Janee Stapleton 10/30/2017 05:06 PM Cordell Juarez MD CV PEDS ECHO ORDERABLES ELECTROCARDIOGRAM REPORT (10/30/2017) Specimen (Source) Anatomical Location Collection Method / Collectio n Time Received Time / Laterality Volume 10/30/2017 Narrative This result has an attachment that is no t available. Cordell Juarez MD PROCEDURES documented in this encounter Visit Diagnoses Diagnosis Hypoplastic left heart syndrome - Primar y Tachycardia Tachycardia, unspecified SVT (supraventricular tachycardia) (H) Other specified cardiac dysrhythmias Hypoplastic left heart syndrome Tachycardia Tachycardia, unspecified documented in this encounter Care Teams Buckram Sewer Relationship Specialty Start Date End Date Stephen Sauceda PCP - General Pediatrics 03/06/17 06/24/19 [facility] [address] [place] [address] documented as of this encounter
--- OUTSIDE RECORDS SUMMARY | 2022-04-10 09:57 | XMS_ITS | Encounter Summary ---
:2000 Author Organization [address] [place] [address] Care Team Providers Name Role Phone Stephen Sauceda Primary Care Provider Reason for Visit Reason Onset Date Comments Results 05/19/2018 Encounter Details Date Type Department Care Team Description 05/19/2018 Telephone [facility] Pediatric Cordell Juarez MD Results Specialty Clinic [address] [facility] [place] [address] [facility] [address] [phone] Social History Tobacco Use Types Packs/Day Years Used Date Smoking Tobacco: Never Comments: none at home Alcohol Use Standard Drinks/Week Comments No 0 (1 standard drink = 0.6 oz pure alcoho l) Sex Assigned at Date Recorded Male 03/09/2019 1:21 PM CDT documented as of this encounter Miscellaneous Notes Telephone Encounter - Cordell Juarez MD - 05/19/2018 5:00 PM CST Called with results of zio. Normal heart rate range and no sustained arrhythmias noted. Sinus rhythmwith chest pain. Asked for return call with update on progress. Cordell Juarez M.D. Therapeutic Recreation Director of Pediatrics Pediatric and Adult Congenital Cardiology [facility] Pediatric Cardiology Office [phone] Adult Congenital Cardiology Triage and Scheduling [phone] [employer] documented in this encounter Plan of Treatment Upcoming Encounters Date Type Specialty Care Team Description 07/27/2022 Ancillary Procedure Cardiology Cordell Juarez MD [address] [place], [place] [address] (Wo rk) 07/27/2022 Office Visit Cardiology Cordell Juarez MD [address] [facility] [place], [place] [address] (Wo rk) documented as of this encounter Visit Diagnoses Not on filedocumented in this encounter Care Teams Lmft Relationship Specialty Start Date End Date Stephen Sauceda PCP - General Pediatrics 03/06/17 06/24/19 [facility] [address] [place] [address] documented as of this encounter
--- OUTSIDE RECORDS SUMMARY | 2022-04-10 09:57 | XMS_ITS | Encounter Summary ---
:2000 Author Organization [place] Address [address] [place] [address]. [place] [address] Care Team Providers Name Role Phone Komal, Stephen Grant Primary Care Provider Encounter Details Date Type Department Care Team Description 05/02/2018 [facility] Only [facility] Cordell Juarez Atri al tachycardia Pediatric Specialty MD (H) Clinic [address] [facility] [place] [address] [phone] Social History Tobacco Use Types Packs/Day Years [...] 07/27/2022 Ancillary Procedure Cardiology Cordell Juarez MD [address] [place], [place] [id number] [place] [address] (Wo rk) 07/27/2022 Office Visit Cardiology Cordell Juarez MD [address] [place] [address] (Wo rk) documented as of this encounter Procedures Procedure Name Priority Date/Time Associated Diagnosis Comme nts BETA HEMOLYTIC STREP Routine 04/30/2018 Atrial tachycardia ( H) Results for this GROUP A CULTURE procedure ar e in the results section . documented in this encounter Results Beta strep group A culture (04/30/2018) P athologist Signature Beta Strep absent Specimen (Source) Anatomical Location Collection Method / Collectio n Time Received Time / Laterality Volume Specimen from 04/30/2018 throat (specimen) Narrative This result has an attachment that is no t available. Cordell Juarez MD LAB - MICRO GENERAL ORDERABL ES documented in this encounter Visit Diagnoses Diagnosis Atrial tachycardia (H) Other specified cardiac dysrhythmias documented in this encounter Care Teams Maintainer Central Office Relationship Specialty Start Date End Date Stephen Sauceda PCP - General Pediatrics 03/06/17 06/24/19 [facility] [address] [place] [address] documented as of this encounter
--- OUTSIDE RECORDS SUMMARY | 2022-04-10 09:57 | XMS_ITS | Encounter Summary ---
:2000 Author Organization [place] Address [facility] [place] [address] Care Team Providers Name Role Phone Komal, Stephen Grant Primary Care Provider Encounter Details Date Type Department Care Team Description 04/30/2018 Orders Only [facility] Maxx Figueroa V Atrial t achycardia (H) Pediatric Specialty Clinic [place] [address] [facility] [address] [place] [address] Social History Tobacco Use Types [...] Procedure Cardiology Cordell Juarez MD [facility] [address] [id number] (Wo lucio) 07/27/2022 Office Visit Cardiology Cordell Juarez MD [address] [id number] (Arleen valdes) documented as of this encounter Procedures Procedure Name Priority Date/Time Associated Diagnosis Comme nts IGG Routine 04/30/2018 2:23 PM Atrial tachycardia (H) Results for this CLINICAL TRIALS ASSISTANT procedure are i n the results section. documented in this encounter Results IgG (04/30/2018 2:23 PM CLINICAL TRIALS ASSISTANT) P athologist Signature IGG 1,355 411 - 1,650 05/01/2018 [facility] mg/dL 9:37 AM [facility] Specimen Anatomical Collection Method Collection Time Receive d Time (Source) Location / / Volume Laterality Blood specimen 04/30/2018 2:23 PM 018 2:24 (specimen) CLINICAL TRIALS ASSISTANT PM CLINICAL TRIALS ASSISTANT Cordell Juarez MD LAB - BLOOD ORDERABLES Performing Organization Address City/State/ZIP Code Phon e Number [facility] [address] documented in this encounter Visit Diagnoses Diagnosis Atrial tachycardia (H) Other specified cardiac dysrhythmias documented in this encounter Care Teams Packaging Line Operator Relationship Specialty Start Date End Date Stephen Sauceda PCP - General Pediatrics 03/06/17 06/24/19 [facility] [address] [place] [address] documented as of this encounter
--- OUTSIDE RECORDS SUMMARY | 2022-04-10 09:57 | XMS_ITS | Encounter Summary ---
:2000 Author Organization [place] Address [address] [place] [address]. [place] [address] Care Team Providers Name Role Phone Stephen Sauceda Primary Care Provider Reason for Referral - Closed Specialty Diagnoses / Procedures Referred By Contact Refer red To Contact Cardiology Diagnoses Chest pain, unspecified type Zzrh Cardiac Test cc Zzrh Cardiac Test [facility] Procedures Zio Patch Holter [address] [place] [address] [place] [phone] Fax: Referral ID Status Reason Start Date Expiration Date Visits Requ ested Visits Authorized [id number] Closed 04/30/2018 04/30/2019 1 1 HT RADIO OFFICER Encounter Details Date Type Department Care Team Description 04/30/2018 Orders Only [facility] Cordell Juarez, Chest pain, Center unspecified type [address] [place] [address] [facility] ( Primary Dx) [address] [place] [address] [phone] (Wo rk) Social History Tobacco Use Types [...] Ancillary Procedure Cardiology Cordell Juarez MD [address] [place] [address] (Wo rk) 07/27/2022 Office Visit Cardiology Cordell Juarez MD [address] [place] [address] (Wo rk) documented as of this encounter Results Zio Patch Holter (04/30/2018) Narrative [facility] - 04/30/[address] [address] 04/30/2018 Patient: ??Jude Bills Chart: [id number] : ??2000 Age: ??18 year old Sex: ??male Procedure: ??ZioPatch Monitor. Buffet Runner performing hook-up: ??Charles Matt Cordell Juarez MD CV CARDIAC SERVICES ORDERABL ES Performing Organization Address City/State/ZIP Code Phon e Number [facility] documented in this encounter Visit Diagnoses Diagnosis Chest pain, unspecified type Chest pain, unspecified type - Primary documented in this encounter Care Teams Polysomnographer Relationship Specialty Start Date End Date Stephen Sauceda PCP - General Pediatrics 03/06/17 06/24/19 [facility] [address] [place] [address] documented as of this encounter
--- OUTSIDE RECORDS SUMMARY | 2022-04-10 09:57 | XMS_ITS | Encounter Summary ---
:2000 Author Organization [place] Address [address] [place] [address] Care Team Providers Name Role Phone Stephen Sauceda Primary Care Provider Reason for Referral - Closed Specialty Diagnoses / Procedures Referred By Contact Refer red To Contact Cardiology Diagnoses Hypoplastic left heart syndrome Tachycardia Cordell Juarez MD Zz Rh Echocardiography Procedures Echo pediatric congenital [address] [place], [place] [address] [place] [address] Phone: Referral ID Status Reason Start Date Expiration Date Visits Requ ested Visits Authorized [id number] Closed 10/30/2017 10/30/2018 1 1 Reason for Visit - Closed Specialty Diagnoses / Procedures Referred By Contact Refer red To Contact Cardiology Diagnoses Hypoplastic left heart syndrome Tachycardia Cordell Juarez MD Zz Rh Echocardiography Procedures Echo pediatric congenital [address] [facility] [address] [place], [place] [address] [place] [address] Phone: Referral ID Status Reason Start Date Expiration Date Visits Requ ested Visits Authorized [id number] Closed 10/30/2017 10/30/2018 1 1 Encounter Details Date Type Department Care Team Description 10/30/2017 Hospital Encounter Fawn Weissr, Cordell Barajas, Hypoplastic left heart syndrome; Cardiopulmonary Tachycardia [address] [place], [place] [address] [place], [place] [phone] [address] Social History Tobacco Use Types Packs/Day Years [...] mcg) by mouth daily (supraventricular tachycardia) (H) digoxin (LANOXIN) 250 MCG Take 1 tablet (250 30 tablet 11 11/30/2017 tabletIndications: SVT mcg) by mouth daily (supraventricular [...] pain, unspecified week then once type daily sildenafil (REVATIO) 20 Take 1 tablet [...] Chest M/W/F/sat/sun. 2.5 pain, unspecified type mg /th warfarin (COUMADIN) 5 MG Take 1 tablet (5mg) 30 tablet 0 08/30/2018 tabletIndications: every day except Hypoplastic left heart Saturday and syndrome Saturday. Take 1/2 tablet (2.5 mg) every Saturday and Saturday documented as of this encounter Plan of Treatment Upcoming Encounters Date Type Specialty Care Team Description 07/27/2022 Ancillary Procedure Cardiology Cordell Juarez MD [address] [place] [address] (Wo rk) 07/27/2022 Office Visit Cardiology Cordell Juarez MD [address] [facility] [place], [place] [address] ( rk) documented as of this encounter Procedures Procedure Name Priority Date/Time Associated Diagnosis Comme [facility] ECHO PEDIATRIC Routine 10/30/2017 3:11 PM Hypoplastic left Res ults for this CONGENITAL CDT heart syndrome procedure are in Tachycardia the results section. documented in this encounter Results Echo pediatric congenital (10/30/2017 3:11 PM CDT) Anatomical Region Laterality Modality Echocardiography Specimen (Source) Anatomical Collection Method Collection Time Re ceived Time Location / / Volume Laterality 10/30/2017 2:34 PM CDT Narrative 10/30/2017 5:06 PM CDT [id number]^JAVIER^CORDELL^RYAN ?Study ID: [id number] ?[facility] ?[facility] ?[address] ?[place] [address] ? Pediatric Echocardiogram __ Name: JUDE BILLS Study Date: 10/30/2017 02:34 PM ? Patient Location: [facility] ? Age: 17 yrs : 2000 ? [...] approved by: Janee Stapleton 10/30/2017 05:06 PM Procedure Note Kofi Swan MD - 10/30 [id number] [facility] [id number]^JAVIER^CORDELL^RYAN Study ID: [id number] [facility]'[address] [place] [address] Pediatric Echocardiogram __ Name: JUDE BILLS Study Date: 10/30/2017 02:34 PM Patient Location: [facility] Age: 17 yrs : 2000 BP: 105/65 [...] unspecified documented in this encounter Care Teams Cardiac Surgeon Relationship Specialty Start Date End Date Stephen Sauceda PCP - General Pediatrics 03/06/17 06/24/19 [facility] [address] [place] [address] documented as of this encounter
--- OUTSIDE RECORDS SUMMARY | 2022-04-10 09:57 | XMS_ITS | Encounter Summary ---
:2000 Author Organization [place] Address [address] [place] [address]. [place] [address] Care Team Providers Name Role Phone Stephen Sauceda Primary Care Provider Reason for Visit Reason Comments Medication Refill Encounter Details Date Type Department Care Team Description 06/09/[address] [facility] [address] Juarez MD Medication Refill Center [address] [place] [address] [place] [address] [address] [place] [address] [phone] Social History Tobacco Use Types Packs/Day Years [...] 07/27/2022 Ancillary Procedure Cardiology Cordell Juarez MD [address] [place], [place] [id number] [place] [address] (Wo rk) 07/27/2022 Office Visit Cardiology Larry, Cordell skelton MD [address] [place] [address] (Wo rk) documented as of this encounter Visit Diagnoses Diagnosis Tachycardia Tachycardia, unspecified Hypoplastic left heart syndrome documented in this encounter Care Teams Storekeeper Steward Relationship Specialty Start Date End Date Stephen Sauceda PCP - General Pediatrics 03/06/17 06/24/[address] [facility] [address] [place] [address] documented as of this encounter
--- OUTSIDE RECORDS SUMMARY | 2022-04-10 09:57 | XMS_ITS | Encounter Summary ---
:2000 Author Organization [place] Address [address] [place] [address]. [place] [address] Care Team Providers Name Role Phone Stephen Sauceda Primary Care Provider Reason for Visit Reason Onset Date Comments Clinic Care Coordination - Follow-up 05/02/2018 Encounter Details Date Type Department Care Team Description 05/02/2018 [facility] [place] [facility] Pediatric Specialty MD Coordination - Clinic [address] Follow-up [address] [place] [address] [phone] Social History Tobacco Use Types Packs/Day Years Used Date Smoking Tobacco: Never Comments: none at home Alcohol Use Standard Drinks/Week Comments No 0 (1 standard drink = 0.6 oz pure alcoho l) Sex Assigned at Date Recorded Male 03/09/2019 1:21 PM CDT documented as of this encounter Miscellaneous Notes Telephone Encounter - Teresa Roth RN - 05/02/2018 11:53 AM CST Spoke to Jude's mom this morning and let her know that Jude tested positive for mono. Dr. Juarez recommends plenty of rest and fluids, as his labs reflect that he is dehydrated at this time. Dr. Juarez also shared that he should not participate in contact sports for around 6 weeks or at least until he starts to feel better. In addition, Mom should contact his PCP to let them know of his positive EBV results. Mom was also instructed to follow up with Jude's PCP if he experiences any high fevers, as this could indicate a possible secondary infection. Teresa Roth RN on 05/02/2018 at 11:56 AM CONTENT WRITER documented in this encounter Plan of Treatment Upcoming Encounters Date Type Specialty Care Team Description 07/27/2022 Ancillary Procedure Cardiology Cordell Juarez MD [address] [facility] [place] [address] (Wo rk) 07/27/2022 Office Visit Cardiology Cordell Juarez MD [address] [facility] [place] [address] (Wo rk) documented as of this encounter Visit Diagnoses Not on filedocumented in this encounter Care Teams Incident Response Manager Relationship Specialty Start Date End Date Stephen Sauceda PCP - General Pediatrics 03/06/17 06/24/19 [facility] [address] [place] [address] documented as of this encounter
--- OUTSIDE RECORDS SUMMARY | 2022-04-10 09:57 | XMS_ITS | Encounter Summary ---
:2000 Author Organization [place] Address [address] [place] [address]. [place] [address] Care Team Providers Name Role Phone KomalStephen mejia Rudy Primary Care Provider Reason for Visit Reason Onset Date Comments Refill Request 06/21/2017 Prior Auth - Medication 06/21/2017 Encounter Details Date Type Department Care Team Description 06/21/2017 Refill [facility] Cordell Juarez MD Refill Request; Prior [facility] [address] [place] [address] Aut h - Medication Specialty Clinic [address] [place] [address] [facility] [address] [place] [address] [facility] [place] [address] Social History Tobacco Use Types Packs/Day Years Used Date Smoking Tobacco: Never Comments: none at home Alcohol Use Standard Drinks/Week Comments No 0 (1 standard drink = 0.6 oz pure alcoho l) Sex Assigned at Date Recorded Male 03/09/2019 1:21 PM CDT documented as of this encounter Miscellaneous Notes Telephone Encounter - Kirsten Montes De Oca RN - 06/21/2017 3:44 PM CST Prior Authorization Retail Medication Request Medication/DoseSildenafil 20mg tablet: three times daily Diagnosis and ICD code: Hypoplastic Left Heart, pulm hypertension syndrome New/Renewal/Insurance Change PA: Renewal Previously Tried and Failed Therapies: Insurance ID (if provided): Insurance Phone (if provided): Any additional info from fax request: If you received a fax notification from an outside Pharmacy: [id number] - [place], [place] - [address] [address] (Phone) Pharmacy Name: Pharmacy #: Pharmacy Fax: O REPAIRER DOMESTIC documented in this encounter Plan of Treatment Upcoming Encounters Date Type Specialty Care Team Description 07/27/2022 Ancillary Procedure Cardiology Cordell Juarez MD [facility] [address] [address] (Wo rk) 07/27/2022 Office Visit Cardiology Cordell Juarez MD [facility] [address] [address] (Wo rk) documented as of this encounter 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
--- OUTSIDE RECORDS SUMMARY | 2022-04-10 09:57 | XMS_ITS | Encounter Summary ---
:2000 Author Organization [place] Address [address] [place] [address] Care Team Providers Name Role Phone Komal, Stephen Grant Primary Care Provider Reason for Visit Reason Onset Date Comments Prior Auth - Medication 06/21/2017 sildenafil (PEPE WILMA) 20 MG tablet - APPROVED Encounter Details Date Type Department Care Team Description 06/21/2017 Telephone [facility] Cordell Juarez Prio r Auth - [facility] MD Medication (sildenafil Specialty Clinic [facility] (REVATIO) 20 MG tablet 2450 [facility] [address] - APPROVED) [facility] [id number] [place] [address] [place] [address] Social History Tobacco Use Types Packs/Day Years Used Date Smoking Tobacco: Never Comments: none at home Alcohol Use Standard Drinks/Week Comments No 0 (1 standard drink = 0.6 oz pure alcoho l) Sex Assigned at Date Recorded Male 03/09/2019 1:21 PM CDT documented as of this encounter Miscellaneous Notes Telephone Encounter - Deyanira Gonsalves - 06/25/2017 11:18 AM CST Images from the original note were not included. Per plan: This medication is only available through mail order at [facility] [place], [place] - [address] and is the only way a prior authorization was able to be completed. I will message nurse to have script sent to pharmacy. Prior Authorization Approval Via Phone Authorization Effective Date: 05/26/2017 Authorization Expiration Date: 06/24/2020 Medication: sildenafil (REVATIO) 20 MG tablet - APPROVED Approved Dose/Quantity: Reference #: Insurance Company: [employer] - Expected CoPay: CoPay Card Available: Foundation Assistance Needed: Which Pharmacy is filling the prescription (Not needed for infusion/clinic administered): [facility] [place] [phone] Pharmacy Notified: Yes Patient Notified: NING OPERATOR Telephone Encounter - Betsy Tyler - 06/21/2017 4:41 PM CST Images from the original note were not included. Central Prior Authorization Team RX CALLS: NING OPERATOR documented in this encounter Plan of Treatment Upcoming Encounters Date Type Specialty Care Team Description 07/27/2022 Ancillary Procedure Cardiology Cordell Juarez MD [address] [facility] [address] [place] [address] (Wo rk) 07/27/2022 Office Visit Cardiology Cordell Juarez MD [address] [place], [place] [address] (Wo rk) documented as of this encounter Visit Diagnoses Not on filedocumented in this encounter Care Teams Fitness Trainer Relationship Specialty Start Date End Date Stephen Sauceda PCP - General Pediatrics 03/06/17 06/24/19 [facility] [address] [place] [address] (work) documented as of this encounter
--- OUTSIDE RECORDS SUMMARY | 2022-04-10 09:57 | XMS_ITS | Encounter Summary ---
:2000 Author Organization [place] Address [address] [place] [address] Care Team Providers Name Role Phone Stephen Sauceda Primary Care Provider Reason for Referral - Closed Specialty Diagnoses / Procedures Referred By Contact Refer red To Contact Cardiology Diagnoses Chest pain, unspecified type Zzrh Cardiac Test Rscc Zzrh Cardiac Test Rs[facility] Procedures Zio Patch Holter [address] [facility] [address] [address] [address] [place] [phone] Fax: Referral ID Status Reason Start Date Expiration Date Visits Requ ested Visits Authorized [id number] Closed 04/30/2018 04/30/2019 1 1 URER IN COMPUTER SCIENCE Reason for Visit - Closed Specialty Diagnoses / Procedures Referred By Contact Refer red To Contact Cardiology Diagnoses Chest pain, unspecified type Zzrh Cardiac Test Rscc Zzrh Cardiac Test Rs[facility] Procedures Zio Patch Holter [address] [address] [address] [place] [phone] Fax: Referral ID Status Reason Start Date Expiration Date Visits Requ ested Visits Authorized [id number] Closed 04/30/2018 04/30/2019 1 1 Encounter Details Date Type Department Care Team Description 04/30/2018 Hospital Encounter [facility], Cordell Barajas, Chest pain, Care Center unspecified type [address] [address] [phone] Social History Tobacco Use Types Packs/Day Years [...] Hypoplastic left heart Please supply a small [employer] Safety Step portable tank concentrator. syndrome Patient to receive 2L Oxygen PRN by nasal cannula for family trip to [place]. sildenafil (REVATIO) 20 Take 1 tablet (20 [...] and Saturday documented as of this encounter Progress Notes Charles Matt - 04/30/2018 3:10 PM CST Placed a 14 day Pediatric Zio Patch Monitor. URER IN COMPUTER SCIENCE documented in this encounter Plan of Treatment Upcoming Encounters Date Type Specialty Care Team Description 07/27/2022 Ancillary Procedure Cardiology Cordell Juarez MD [address]50 [facility] [address] [place], [place] [address] (Wo rk) 07/27/2022 Office Visit Cardiology Cordell Juarez MD [address] [place], [place] [address] (Wo rk) documented as of this encounter Procedures Procedure Name Priority Date/Time Associated Diagnosis Comme nts ZIO PATCH HOLTER Routine 04/30/2018 Chest pain, unspecified Results for this type procedure are i n the results section . documented in this encounter Results Zio Patch Holter (04/30/2018) Narrative [facility] - 04/30/2018 [facility] [address] [facility] 140 [facility] [address] 04/30/2018 Patient: ??Jude Bills Chart: [id number] : ??2000 Age: ??18 year old Sex: ??male Procedure: ??ZioPatch Monitor. Wedding Photographer performing hook-up: ??Charles Matt Cordell Juarez MD CV CARDIAC SERVICES ORDERABL ES Performing Organization Address City/State/ZIP Code Phon e Number [facility] documented in this encounter Visit Diagnoses Diagnosis Chest pain, unspecified type documented in this encounter Care Teams Hide Buffer Relationship Specialty Start Date End Date Stephen Sauceda PCP - General Pediatrics 03/06/17 06/24/[address] [address] documented as of this encounter
--- OUTSIDE RECORDS SUMMARY | 2022-04-10 09:57 | XMS_ITS | Encounter Summary ---
:2000 Author Organization [place] Address [address] [facility] [place] [address] Care Team Providers Name Role Phone KomalStephen Primary Care Provider Reason for Referral - Closed Specialty Diagnoses / Procedures Referred By Contact Refer red To Contact Cardiology Diagnoses Chest pain, unspecified type Cordell Juarez MD Zzrh Cardiac Test [facility] Procedures Zio Patch Holter 2450 [facility] [address] [address] [address] [place] [address] Phone: Fax: Referral ID Status Reason Start Date Expiration Date Visits Requ ested Visits Authorized [id number] Closed 09/15/2017 09/15/2018 1 1 LAY OUT WORKER Reason for Visit Reason Comments RECHECK Tachycardia Encounter Details Date Type Department Care Team Description 08/14/2017 Office Visit [facility] Cordell Juarez Ches t pain, Pediatric Specialty unspecified type Clinic [place] [address] [facility] (Primary Dx) [address] [facility] [address] [place] [phone] Social History Tobacco Use Types Packs/Day Years Used Date Smoking Tobacco: Never Comments: none at home Alcohol Use Standard Drinks/Week Comments No 0 (1 standard drink = 0.6 oz pure alcoho l) Sex Assigned at Date Recorded Male 03/09/2019 1:21 PM CDT documented as of this encounter Last Filed Vital Signs Vital Sign Reading Time Taken Comments Blood Pressure 103/61 08/14/2017 9:08 AM DIE LAY OUT WORKER Pulse 66 08/14/2017 9:08 AM DIE LAY OUT WORKER Temperature - - Respiratory Rate 18 08/14/2017 9:08 AM DIE LAY OUT WORKER Oxygen Saturation 95% 08/14/2017 9:08 AM DIE LAY OUT WORKER Inhaled Oxygen Concentration - - Weight 58.8 kg (129 lb 10.1 oz) 08/14/2017 9:08 AM DIE LAY OUT WORKER Height 163.1 cm (5' 4.21) 08/14/2017 9:08 AM DIE LAY OUT WORKER Body Mass Index 22.1 08/14/2017 9:08 AM DIE LAY OUT WORKER Body Mass Index Percentile 57.09 % 08/14/2017 9:08 AM CS T Growth Chart: [facility] (Boys, 2-20 Years) documented in this encounter Patient Instructions Patient InstructionsLohr, Cordell Barajas MD - 08/14/2017 9:15 AM CST You were seen today in the Pediatric Cardiology Clinic at [facility] Cardiology Providers you saw during your visit: Cordell Juarez MD Diagnosis: Fontan, chest pain, atrial tachycardia Results: No arrhtyhmias on zio, feeling better on sildenafil. Recommendations: Stop aspirin Stop lisinopril Continue sildenafil 20 mg three times daily Restart warfarin 5 mg 5 days per week, 2.5 mg twice weekly, goal INR 2-2.5, Can either have PMD manage or referral to medication monitoring clinic clinic Prilosec 20 mg twice daily for one week than once daily for three months then reevaluate. SBE prophylaxis: Yes__x__ No____ Exercise restrictions: Yes___ No_x___ If yes list restrictions: Work restrictions: Yes___ No____ If yes list restrictions: Follow-up: 3 months with echo, ECG and one week zio prior. Thank you for your visit today. If you have questions about today's visit, please call our clinic [phone] For after hours urgent needs call [phone] and ask to speak to the Pediatric Cardiology Physician line maintainer section. For emergencies call 911. LAY OUT WORKER documented in this encounter Progress Notes Cordell Juarez MD - 08/14/2017 9:15 AM CST Pediatric Cardiology Visit Patient: Jude Bills Date of : 2000 Age: 16 years 7 months Date of Visit: Aug 14, 2017 PCP: Ana Li [place] Dear Dr. Winchester, I had the pleasure of seeing your patient, Jude Bills, in the Pediatric Cardiology Clinic at the [facility] on Aug 14, 2017. 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 He underwent a central shunt, followed by a Fortino procedure and completion of a Fontan procedure at the [facility] in puppet [place]. He had catheter closure of his Fontan fenestration at the [facility] in January 2007. Jude is here today for a follow up visit after evaluation for ongoing episodes of chest pain and irregular heart rate. His last visit to the ED was 06/21. Since that time he has started sildenafil 20 mg tid and he reports improvement in the episodes. He does not feeldizzy or have visual changes or headache. No syncope, no exercise intolerance, ankle swelling comes and goes but overall improved, no abdominal pain. Jude has had repeated rhythm monitoring, he has a slow baseline HR with salvos of atrial tachycardia. He is on low dose metoprolol. I did discuss this with Dr. López with EP who would like him back on anticoagulation with continued monitoring. If his symptoms worsen she would consider a repeat EP study. 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 Jude is currently in 11th grade and he has an IEP. He plays baseball, but is no longer playing basketball. 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 Prescription Medications as of 10/03/2017 digoxin (LANOXIN) 250 MCG tablet Take 1 [...] 5 mg daily ///sat/sun. 2.5 mg / No longer takes omeprazole FH/SH: Jude and his family live in [place]. His mother is a nurse at [employer]. His height is 1.631 m (5' 4.21) and weight is 58.8 kg (129 lb 10.1 oz). His blood pressure is 103/61 and his pulse is 66. His respiration is 18 and oxygen saturation is 95%. His body mass index is 22.1 kg/(m^2). His body surface area is 1.63 meters squared. In general, he is a [...] pulses are normal and extremities are warm andwell perfused with no edema or clubbing and good capillary refill. He is alert and oriented and moves all extremities equally with normal tone. A 12-lead ECG was obtained today which revealed sinus bradycardia at a rate of 38 beats per minute, left axis deviation, RVH with strain pattern and interventricular conduction delay, and flattened/ inverted T waves in lateral leads. Overall, this is unchanged from prior ECG's. A 48 Hour Holter was done August 2016 on 25 mg Metoprolol XL twice daily Average HR was 56 bpm ([id number]) 779 PVC's (< 1% = rare), no couplets or sustained arrhythmias. 1 PAC. Holter WNL. Todd 03/13- Atrial tach at 167 bpm. Symptoms were with PAC's or sinus rhythm. Discussed with EP (Henry) she recommended continue anticoagulation with warfarin and continue to monitor. Repeat EP studyif worsening symptoms. His last echocardiogram performed on 05/29/17 was unchanged from prior echos. Double outlet [...] No significant change from last Echocardiogram. EKG in June had HR 0f 62 bpm. Labs: Cath Data 01/2016: Fontan pressures 14 mean, PAP 14 mean LV EDP 10 CI 3.1 L/min/m2. Impression and Plan: Jude is a 17yo male s/p fontan - fenestration closed with amplatzer. He has been having episodes chest pain/palpitations with only finding baseline bradycardia with salvos of atrial tachycardia. No CHFor other hemodynamic findings. Recommendations: 1.Stop aspirin, Restart anticoagulation with coumadin for goal INR 2-2.5 2. Metoprolol XR 25 mg daily (can decrease to 1/2 tab if lightheaded) 3. Hold lisinipril, continue Sildenafil 20 mg tid 4. Dig level OK in ER 5. To ER if sustained arrhythmias, syncope, or new symptoms. 6. F/U 2 months post starting sildenafil for recheck with repeat one week zio. Sincerely, Cordell Juarez M.D. Personal Shopper of Pediatrics Division of Pediatric Cardiology [facility] documented in this encounter Nursing Notes Kim Summers MA - 08/14/2017 9:15 AM CST Informant- Jude is accompanied by mother Reason for Visit- Tachycardia Vitals signs- BP 103/61 Pulse 66 Resp 18 Ht 1.631 m (5' 4.21) Wt 58.8 kg (129 lb 10.1 oz) SpO2 95% BMI 22.1 kg/m2 There are concerns about the child's exposure to violence in the home: No Face to Face time: 5 minutes Kim Summers MA LAY OUT WORKER documented in this encounter Plan of Treatment Upcoming Encounters Date Type Specialty Care Team Description 07/27/2022 Ancillary Procedure Cardiology Cordell Juarez MD [address] [place] [address] (Arleen valdes) 07/27/2022 Office Visit Cardiology Cordell Juarez MD [facility] [address] [address] (Arleen valdes) documented as of this encounter Results Zio Patch Holter (09/16/2017) Narrative [facility] - 09/16/[address] [facility] [address] [place] [address] 09/16/2017 Patient: ??Jude Rajansif Chart: [id number] : ??2000 Age: ??17 year old Sex: ??male Procedure: ??ZioPatch Monitor. Classifications Officer Cc/Cm performing hook-up: ??Charles Matt Cordell Juarez MD CV CARDIAC SERVICES ORDERABL ES Performing Organization Address City/State/ZIP Code Phon e Number [facility] documented in this encounter Visit Diagnoses Diagnosis Chest pain, unspecified type - Primary Chest pain, unspecified type documented in this encounter Care Teams Electrical Engineering Drafting Officer Relationship Specialty Start Date End Date Stephen Sauceda PCP - General Pediatrics 03/06/17 06/24/[address] [address] documented as of this encounter
--- OUTSIDE RECORDS SUMMARY | 2022-04-10 09:57 | XMS_ITS | Encounter Summary ---
:2000 Author Organization [place] Address 2450 [facility] [place] [address] Care Team Providers Name Role Phone Stephen Sauceda Primary Care Provider Reason for Referral - Closed Specialty Diagnoses / Procedures Referred By Contact Refer red To Contact Cardiology Diagnoses Chest pain, unspecified type Cordell Juarez MD Zzrh Cardiac Test Rs[facility] Procedures Zio Patch Holter [address] [address] [place], [place] [address] [address] [place] [address] Phone: Fax: Referral ID Status Reason Start Date Expiration Date Visits Requ ested Visits Authorized [id number] Closed 09/15/2017 09/15/2018 1 1 Reason for Visit - Closed Specialty Diagnoses / Procedures Referred By Contact Refer red To Contact Cardiology Diagnoses Chest pain, unspecified type Cordell Juarez MD Zzrh Cardiac Test Rs[facility] Procedures Zio Patch Holter [address] [facility] [address] [address] [address] [place] [address] Phone: Fax: Referral ID Status Reason Start Date Expiration Date Visits Requ ested Visits Authorized [id number] Closed 09/15/2017 09/15/2018 1 1 Encounter Details Date Type Department Care Team Description 09/16/2017 Hospital Encounter [facility], Cordell Barajas, Chest pain, Care Center unspecified type [address] [facility] [place] [address] [phone] Social History Tobacco Use Types Packs/Day Years [...] spironolactone TAKE ONE TABLET BY 30 tablet 1 08/01/2017 (ALDACTONE) 25 MG MOUTH ONE TIME tabletIndications: DAILY Hypoplastic left heart syndrome spironolactone Take 1 tablet by 30 tablet 2 03/22/201709/15 (ALDACTONE) 25 MG mouth daily. tabletIndications: Hypoplastic left heart syndrome warfarin (COUMADIN) [...] this encounter Progress Notes Charles Matt - 09/16/2017 3:13 PM CDT Placed a 7 day Zio Patch Monitor. documented in this encounter Plan of Treatment Upcoming Encounters Date Type Specialty Care Team Description 07/27/2022 Ancillary Procedure Cardiology Cordell Juarez MD 2450 [facility] [address] [place] [address] (Wo rk) 07/27/2022 Office Visit Cardiology Cordell Juarez MD [address]50 [facility] [address] [place] [address] (Wo rk) documented as of this encounter Procedures Procedure Name Priority Date/Time Associated Diagnosis Comme nts ZIO PATCH HOLTER Routine 09/16/2017 Chest pain, unspecified Results for this type procedure are i n the results section . documented in this encounter Results Zio Patch Holter (09/16/2017) Narrative [facility] - 09/16/2017 [facility] [address] [facility] 140 [facility] [address] 09/16/2017 Patient: ??Jude Bills Chart: [id number] : ??2000 Age: ??17 year old Sex: ??male Procedure: ??ZioPatch Monitor. Brand Sales Manager performing hook-up: ??Charles Matt Cordell Juarez MD CV CARDIAC SERVICES ORDERABL ES Performing Organization Address City/State/ZIP Code Phon e Number [facility] documented in this encounter Visit Diagnoses Diagnosis Chest pain, unspecified type documented in this encounter Care Teams Feed Project Engineer Relationship Specialty Start Date End Date Stephen Sauceda PCP - General Pediatrics 03/06/17 06/24/[address] [address] documented as of this encounter
--- OUTSIDE RECORDS SUMMARY | 2022-04-10 09:57 | XMS_ITS | Encounter Summary ---
:2000 Author Organization [place] Address [address] [facility] [place] [address] Care Team Providers Name Role Phone Komal Stephen Grant Primary Care Provider Encounter Details Date Type Department Care Team Description 04/30/2018 Hospital Encounter [facility] LarryCordell MD [facility] [address] [facility] [address] [facility] [place] [id number] [phone] Social History Tobacco Use Types Packs/Day Years [...] 08/30/2018 Hypoplastic left heart Please supply a Loom Decor concentrator. syndrome Patient to receive 2L Oxygen PRN by nasal cannula for family trip to [place]. sildenafil (REVATIO) 20 Take 1 tablet (20 [...] 07/27/2022 Ancillary Procedure Cardiology Cordell Juarez MD [address] [place] [address] (Wo rk) 07/27/2022 Office Visit Cardiology Cordell Juarez MD [address] [place] [address] (Wo rk) documented as of this encounter Visit Diagnoses Not on filedocumented in this encounter Care Teams Inspection Machine Tender Relationship Specialty Start Date End Date Stephen Sauceda PCP - General Pediatrics 03/06/17 06/24/19 [facility] [address] [place] [address] documented as of this encounter
--- OUTSIDE RECORDS SUMMARY | 2022-04-10 09:58 | XMS_ITS | Encounter Summary ---
:2000 Author Organization [place] Address [address] [facility] [place] [address] Care Team Providers Name Role Phone Stephen Sauceda Primary Care Provider Reason for Visit Reason Comments RECHECK Tachycardia, chest pain Encounter Details Date Type Department Care Team Description 03/13/[address] [facility] Cordell Juarez Tach ycardia (Primary Pediatric Specialty MD Dx) Clinic [address] [place] [address] [phone] Social History Tobacco Use Types Packs/Day Years Used Date Smoking Tobacco: Never Comments: none at home Alcohol Use Standard Drinks/Week Comments No 0 (1 standard drink = 0.6 oz pure alcoho l) Sex Assigned at Date Recorded Male 03/09/2019 1:21 PM CDT documented as of this encounter Last Filed Vital Signs Vital Sign Reading Time Taken Comments Blood Pressure 108/68 03/13/2017 9:15 AM CDT Pulse 59 03/13/2017 9:15 AM CDT Temperature - - Respiratory Rate 20 03/13/2017 9:15 AM CDT Oxygen Saturation 97% 03/13/2017 9:15 AM CDT Inhaled Oxygen Concentration - - Weight 57.3 kg (126 lb 5.2 oz) 03/13/2017 9:15 AM CDT Height 163 cm (5' 4.17) 03/13/2017 9:15 AM CDT Body Mass Index 21.57 03/13/2017 9:15 AM CDT Body Mass Index Percentile 53.85 % 03/13/2017 9:15 AM CD T Growth Chart: [facility] (Boys, 2-20 Years) documented in this encounter Progress Notes Cordell Juarez MD - 03/13/2017 9:15 AM CDT Pediatric Cardiology Visit Patient: Jude Bills Date of : 2000 Age: 16 years 7 months Date of Visit: Mar 13, 2017 PCP: Ana Li [place] Dear Dr. Winchester, I had the pleasure of seeing your patient, Jude Bills, in the Pediatric Cardiology Clinic at the [facility] on Mar 13, 2017. 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 He underwent a central shunt, followed by a Fortino procedure and completion of a Fontan procedure at the [facility] in [place]. He had catheter closure of his Fontan fenestration at the [facility] in January 2007. Jude is here today for a follow up visit after an episode of severe chest pain two weeks ago. An ECG in his PMD's office was at his baseline at that time. I last saw Jude in clinic in August 2015 for palpitations. Evaluation at that time included lab work, echo, ECG and a Holter which were reassuring and he had been feeling well until about three weeks ago when he had an episode of severe chest pain at school that was accompanied by the sensation of lowheart rate. It lasted about three hours and resolved spontaneously. He was transported by timber estimator to the ER and evaluated in the ER with stable HR and saturations. Blood work was reassuring and his Holtermonitor is not yet available at the time of this visit. He has been feeling better since that visit but continues to have frequent palpitations accompained by slight dizziness and chest discomfort. No LOC, SOB, exercise intolerance. NO fevers, chills, other sympots. Jude had an EP study done on 01/18/16after he had noted having severe episodes of fatigue at least monthly for the previous 6 months. TheEP study demonstrated normal AV node function with dual AV node physiology and no inducible AVNRT, but he did have a nonspecific atrial tachycardia that terminated spontaneously with a ventricular electrogram after Isuprel was turned off. He was started on metoprolol at that time, which he has continued. He did have an episode of rapid heart rate (into the mid 200's ) that was short and self terminated on a Holter in December 2015. He had non in May 2016. He reports being compliant with his medications including metoprolol. 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 Jude is currently in 11th grade and he has an IEP. He does not participate in any regular exercise. He plays baseball, but is no longer playing basketball. 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 He continues on his coumadin, and gets INR's checked in [place] with a goal range of 2-2.5. Prescription Medications as of 03/13/2017 spironolactone (ALDACTONE) 25 MG tablet Take 1 tablet by mouth daily. lisinopril (PRINIVIL/ZESTRIL) 10 MG tablet Take 1 tablet (10 mg) by mouth daily digoxin (LANOXIN) 250 MCG tablet Take 1 tablet (250 mcg) by mouth daily Montelukast Sodium (SINGULAIR PO) metoprolol (LOPRESSOR) 25 MG tablet Take 1.5 tablets (37.5 mg) by mouth 2 times daily furosemide (LASIX) 20 MG tablet Take 0.5 tablets (10 mg) by mouth daily warfarin (COUMADIN) 5 MG tablet Take 1 tablet (5mg) every day except Saturday and Saturday. Take 1/2 tablet (2.5 mg) every Saturday and Saturday No longer takes omeprazole FH/SH: Jude and his family live in [place]. His mother is a nurse at [employer]. His height is 1.63 m (5' 4.17) and weight is 57.3 kg (126 lb 5.2 oz). His blood pressure is 108/68 and his pulse is 59. His respiration is 20 and oxygen saturation is 97%. His body mass index is 21.57kg/(m^2). His body surface area is 1.61 meters squared. Growth percentiles are 35th% for weight and 5% for height. In general, he is a very well-appearing [...] revealed sinus bradycardia at a rate of 51 beats per minute, left axis deviation, RVH with strain pattern and interventricular conduction delay, and flattened/ inverted T waves in lateral leads. Overall, this is unchanged from prior ECG's. A 48-hour Holter was performed from 09/10/2016 demonstrated an average heart rate of 52 bpm (range 34to 92 bpm), 2 isolated ventricular ectopic beats, and 3 supraventricular ectopic beats. There was 1 pause lasting 2 seconds. The dominant rhythm was sinus with abnormal circadian and physiologic variation. Standard ECG intervals appeared grossly within normal range, except for an abnormal QRS with an abnormal QRS-T angle. A 12 day zio patch recorder was obtained in May 2016 on 25 mg Metoprolol XL twice daily. Jude's average HR was 63 bpm (range 35-143) He had sinus rhythm with symptoms at rates of 172-115 with isolated PVC's and PAC's that were rare. No sustained arrhythmias. A 48 Hour Holter was done August 2016 on 25 mg Metoprolol XL twice daily Average HR was 56 bpm [phone] PVC's (< 1% = rare), no couplets or sustained arrhythmias. 1 PAC. Holter WNL. His last echocardiogram performed on 09/10/16 was unchanged from prior echos. Double outlet right ventricle, transposition of the great arteries (D-TGA) and a large anterior malalignment ventricular septal defect status post Fontan operation. Status post device closure of Fontan fenestration. No fenestration is seen. There is laminar phasic color flow in the Fortino shunt. The right ventricular function has qualitatively mildly depressed contractility. Upper mild tricuspid valve insufficiency. There is laminar flow across the atrial level communication. No pericardial effusion. Labs: CBC RESULTS: Recent Labs Lab Test 08/31/16 1037 WBC 4.7 RBC 5.80* HGB 16.9* HCT 49.6* MCV 86 MCH 29.1 MCHC 34.1 RDW 13.1 PLT 217 Last Basic Metabolic Panel: Lab Results Component Value Date NA 139 08/31/2016 Lab Results Component Value Date POTASSIUM 5.7 08/31/2016 Lab Results Component Value Date CHLORIDE 110 08/31/2016 Lab Results Component Value Date GOYO 8.9 08/31/2016 Lab Results Component Value Date CO2 23 08/31/2016 Lab Results Component Value Date BUN 20 08/31/2016 Lab Results Component Value Date CR 0.68 08/31/2016 Lab Results Component Value Date GLC 91 08/31/2016 Liver Function Studies - Recent Labs Lab Test 08/31/16 1037 PROTTOTAL 7.8 ALBUMIN 4.4 BILITOTAL 1.0 ALKPHOS 182 AST Unsatisfactory specimen - hemolyzed NOTIFIED MACK MEJIARN AT 1111 ON 08.31.16 BY 2651 ALT 31 CRP < 2.9 NT pro BNP 61 Cath Data 01/2016: Fontan pressures 14 mean, PAP 14 mean LV EDP 10 CI 3.1 L/min/m2. Impression and Plan: Jude is a 17yo male s/p fontan - fenestration closed with amplatzer. He has been having episodes of chest pain/palpitations for three weeks. New leg injury with severe hematoma. Recommendations: 1. Continue current medications except for coumadin 2. Ziopatch 1 week 3. Follow up to be determined post ziopatch Sincerely, Cordell Juarez M.D. [facility] Division of Pediatric Cardiology [facility] Addendum: Jude wore a ziopatch from 03/13/17 to 03/23/2017. IT showed an average HR of 62 bpm and a range frm 34bpm to 169 bpm. He had one danica of rapid rate that was aberrantly conducted PAC's or PVC' and was only 5 beats at 10 am on 03/22 that was not marked as symptomatic. . He had a longer episode of atrial tachycardia at 10:08am the same daywith aberrant p wave axis and ST segment changes. Diary events were associated with sinus rhythm. 04/10/17 JLL documented in this encounter Nursing Notes Kim Summers MA - 03/13/2017 9:15 AM CDT Informant- Jude is accompanied by mother Reason for Visit- Tachycardia, chest pain Vitals signs- BP 108/68 Pulse 59 Resp 20 Ht 1.63 m (5' 4.17) Wt 57.3 kg (126 lb 5.2 oz) SpO2 97% BMI 21.57 kg/m2 There are concerns about the child's exposure to violence in the home: No Face to Face time: 5 minutes Kim Summers MA documented in this encounter Plan of Treatment Upcoming Encounters Date Type Specialty Care Team Description 07/27/2022 Ancillary Procedure Cardiology Cordell Juarez MD [address] [place] [address] (Arleen valdes) 07/27/2022 Office Visit Cardiology Cordell Juarez MD [address] [place] [address] (Wo lucio) documented as of this encounter Procedures Procedure Name Priority Date/Time Associated Diagnosis Comme nts [facility] ELECTROCARDIOGRAM REPORT, Routine 03/13/2017 Tachycardi a SUBSEQUENT - ED ONLY documented in this encounter Results Antithrombin III (03/13/2017 11:24 AM CDT) [facility] Time Signature Antithrombin III 116 85 - 135 % 03/14/2017 [facility] Chromogenic 10:51 AM CDT [facility] Specimen Anatomical Collection Method Collection Time Receive d Time (Source) Location / / Volume Laterality Blood specimen 03/13/2017 11:24 7 (specimen) AM CDT 12:16 PM CDT Cordell Juarez MD LAB - BLOOD ORDERABLES Performing Organization Address City/State/ZIP Code Phon e Number [facility] [address] [place] [address] [facility] TSH (03/13/2017 11:24 AM CDT) P athologist Signature TSH 3.44 0.40 - 4.00 03/13/2017 [facility] mU/L 12:46 PM CDT [facility] Specimen Anatomical Collection Method Collection Time Receive d Time (Source) Location / / Volume Laterality Blood specimen 03/13/2017 11:24 7 (specimen) AM CDT 12:16 PM CDT Cordell Juarez MD LAB - BLOOD ORDERABLES Performing Organization Address City/State/ZIP Code Phon e Number [facility] [address] [address] [place] [phone] N terminal pro BNP outpatient (03/13/2017 11:24 AM CDT) athologist Signature N-Terminal Pro 121 0 - 240 03/13/2017 [place] Bnp pg/mL 12:46 PM T [facility] Comment: Reference range shown and results flagge d as abnormal are for the outpatient, non acute settings. Establishing a basel ine value for each individual patient is useful for follow-up. Suggested inpatient cut points for confi rming diagnosis of CHF in an acute setting are: >450 pg/mL (age 18 to less than 50) >900 pg/mL (age 50 to less than 75) >1800 pg/mL (75 yrs and older) An inpatient or emergency department NT- proPBNP <300 pg/mL effectively rules out acute CHF, with 99% negative predict colleen value. Specimen Anatomical Collection Method Collection Time Receive d Time (Source) Location / / Volume Laterality Blood specimen 03/13/2017 11:24 7 (specimen) AM CDT 12:16 PM CDT Cordell Juarez MD LAB - BLOOD ORDERABLES Performing Organization Address City/State/ZIP Code Phon e Number M [facility] [address] [place], [place] [address] [facility] [address] [place], [place] [address] [facility] [phone] (ABNORMAL) Comprehensive metabolic panel (03/13/2017 11:24 AM CDT) P athologist Signature Sodium 137 133 - 144 03/13/2017 [place] mmol/L 12:39 PM [facility] Potassium 4.6 3.4 - 5.3 03/13/2017 [place] mmol/L 12:39 PM [facility] Chloride 103 98 - 110 03/13/2017 [place] mmol/L 12:39 PM [facility] Carbon Dioxide 28 20 - 32 03/13/2017 [place] mmol/L 12:39 PM [facility] Anion Gap 6 3 - 14 03/13/2017 [place] mmol/L 12:39 PM [facility] Glucose 83 70 - 99 03/13/2017 [place] mg/dL 12:39 PM [facility] Urea Nitrogen 21 7 - 21 03/13/2017 [place] mg/dL 12:39 PM [facility] Creatinine 0.93 0.50 - 03/13/2017 [place] 1.00 mg/dL 12:39 PM [facility] GFR Estimate >90 >60 03/13/2017 [place] mL/min/1.7 12:[address] Comment: Non GFR Calc GFR Estimate If >90 >60 mL/min/1.7m2 03/13/2017 12:39 PM [facility] Comment: GFR Calc Calcium 9.7 9.1 - 10.3 03/13/2017 12:39 PM [facility] mg/dL [facility] Bilirubin Total 1.4 (H) 0.2 - 1.3 mg/dL 03/13/2017 12:39 P M [facility] Albumin 4.6 3.4 - 5.0 g/dL 03/13/2017 12:39 PM [facility] Protein Total 8.1 6.8 - 8.8 g/dL 03/13/2017 12:39 PM [facility] Alkaline Phosphatase 123 65 - 260 U/L 03/13/2017 12:39 PM [facility] ALT 24 0 - 50 U/L 03/13/2017 12:39 PM [facility] AST 19 0 - 35 U/L 03/13/2017 12:39 PM [facility] Specimen Anatomical Collection Method Collection Time Receive d Time (Source) Location / / Volume Laterality Blood specimen 03/13/2017 11:24 7 (specimen) AM CDT 12:16 PM CDT Cordell Juarez MD LAB - BLOOD ORDERABLES Performing Organization Address City/State/ZIP Code Phon e Number [place] [address] [address] [facility] [place] [address] [phone] (ABNORMAL) CBC with platelets differential (03/13/2017 11:24 AM CDT) [facility] Method Time Signature WBC 4.6 4.0 - 03/13/2017 [facility] 11.0 12:20 PM [facility] 10e9/L [facility] RBC Count 5.65 (H) 3.7 - 5.3 03/13/2017 [facility] 10e12/L 12:20 PM [facility] Hemoglobin 16.3 (H) 11.7 - 03/13/2017 [facility] 15.7 g/dL 12:20 PM [facility] Hematocrit 49.2 (H) 35.0 - 03/13/2017 [facility] 47.0 % 12:20 PM [facility] MCV 87 77 - 100 03/13/2017 [facility] fl 12:20 PM [facility] MCH 28.8 26.5 - 03/13/2017 [facility] 33.0 pg 12:20 PM [facility] MCHC 33.1 31.5 - 03/13/2017 [facility] 36.5 g/dL 12:20 PM [facility] RDW 13.2 10.0 - 03/13/2017 [facility] 15.0 % 12:20 PM [facility] Platelet Count 206 150 - 450 03/13/2017 [facility] 10e9/L 12:20 PM [facility] Diff Method Automated 03/13/2017 [facility] Method 12:20 PM [facility] % Neutrophils 54.1 % 03/13/2017 [facility] 12:20 PM [facility] % Lymphocytes 32.0 % 03/13/2017 [facility] 12:20 PM [facility] % Monocytes 10.2 % 03/13/2017 [facility] 12:20 PM [facility] % Eosinophils 2.6 % 03/13/2017 [facility] 12:20 PM [facility] % Basophils 0.9 % 03/13/2017 [facility] 12:20 PM [facility] % Immature 0.2 % 03/13/2017 [facility] Granulocytes 12:20 PM [facility] Nucleated RBCs 0 0 /100 03/13/2017 [facility] 12:20 PM [facility] Absolute 2.5 1.3 - 7.0 03/13/2017 [facility] Neutrophil 10e9/L 12:20 PM [facility] Absolute 1.5 1.0 - 5.8 03/13/2017 [facility] Lymphocytes 10e9/L 12:20 PM [facility] Absolute 0.5 0.0 - 1.3 03/13/2017 [facility] Monocytes 10e9/L 12:20 PM [facility] Absolute 0.1 0.0 - 0.7 03/13/2017 [facility] Eosinophils 10e9/L 12:20 PM [facility] Absolute 0.0 0.0 - 0.2 03/13/2017 [facility] Basophils 10e9/L 12:20 PM [facility] Abs Immature 0.0 0 - 0.4 03/13/2017 [facility] Granulocytes 10e9/L 12:20 PM [facility] Absolute 0.0 03/13/2017 [facility] Nucleated RBC 12:20 PM [facility] Specimen Anatomical Collection Method Collection Time Receive d Time (Source) Location / / Volume Laterality Blood specimen 03/13/2017 11:24 09/27/201 7 (specimen) AM CDT 12:16 PM CDT Cordell Juarez MD LAB - BLOOD ORDERABLES Performing Organization Address City/State/ZIP Code Phon e Number M [facility] [address] [place], [place] [address] [facility] [address] [place], [place] [address] [facility] [phone] Echo pediatric congenital (03/13/2017 9:39 AM CDT) Anatomical Region Laterality Modality Echocardiography Specimen (Source) Anatomical Collection Method Collection Time Re ceived Time Location / / Volume Laterality 03/13/2017 9:26 AM CDT Narrative 03/13/2017 10:39 AM CDT [id number]^JAVIER^CORDELL^RYAN ?Study ID: [id number] ?[facility] ?[facility] ?[address] ?[place] [address] ? Pediatric Echocardiogram __ Name: JUDE BILLS Study Date: 03/13/2017 09:26 AM ? Patient Location: [facility] ? Age: 17 yrs : 2000 ? BP: 108/68 mmHg Gender: Male Patient Class: Outpatient ? Height: 163 cm Ordering Provider: CORDELL JUAREZ ?Weight: 57 kg Referring Provider: CORDELL JUAREZ ? BSA: 1.6 m2 Performed By: Lucina Vanegas Report approved by: Vinay Carroll Reason For Study: , Tachycardia, unspeci fied __ CONCLUSIONS Double outlet right ventricle, transposi tion of the great arteries (D-TGA) and a large anterior malalignment ventricula r septal defect status post Fontan operation. Status post device closure of Fontan fenestration. No fenestration is seen. There is laminar phasic color f low in the Fortino shunt. The right ventricular function has qualitatively m ildly depressed contractility. Upper mild tricuspid valve insufficiency. Ther e is laminar flow across the atrial level communication. No pericardial effu tin. __ Technical information: A complete two dimensional, MMODE, spect ral and color Doppler transthoracic echocardiogram is performed. The study q uality is fair. Images are obtained from parasternal, apical, subcostal and suprasternal notch views. Prior echocardiogram available for comparison. ECG tracing shows regular rhythm. ECG tracing shows sinus bradycardia at 50 bp m. Segmental Anatomy: There is normal atrial arrangement. Abse nt left atrioventricular connection. Systemic and pulmonary veins: There is laminar phasic color flow in th e Fortino shunt. Patient has undergone Fontan operation. The Fontan connection is widely patent with phasic laminar flow. Post device closure of Fontan fene stration. Atria and atrial septum: The right and left atria are normal in s ize. There is laminar flow across the atrial level communication. Post atrial septectomy. Atrioventricular valves: The tricuspid valve is normal in appeara nce and motion. Upper mild (1-2+) tricuspid valve insufficiency. The payal l valve has normal structure, size, insertion and function. Ventricles and Ventricular Septum: Double outlet right ventricle. There is mild right ventricular enlargement. The right ventricular function is qualit atively mild to moderately depressed. There is a large anterior malalignment v entricular septal defect. Outflow tracts: Complete transposition of the great chidi gavino (D-TGA). The systemic outflow tract is unobstructed. Tricuspid aortic valve with normal appearance and motion. There is no aortic valve insuffi ciency. There is no aortic valve stenosis. There is unobstructed antegrad e flow in the ascending, transverse arch, descending thoracic and abdominal aorta. Coronaries: The coronary arteries are not well visua lized. Effusions, catheters, cannulas and leads : No pericardial effusion. Doppler Measurements & Calculations MV E max dhruv: 56.3 cm/sec ?LV dP/dt: 866.0 mmHg/s MV A max dhruv: 37.0 cm/sec MV E/A: 1.5 PA V2 max: 62.2 cm/sec ? RV V1 max: 46.4 cm/sec PA max P.5 mmHg ?RV V1 max P.86 mmHg desc Ao max dhruv: 99.1 cm/sec desc Ao max P.9 mmHg Report approved by: Vinay Carroll 03/13/2017 10:39 AM Procedure Note Gayathri Ayala MD - 03/13/2017Forma tting of this note might be different from the original. [id number] [facility] [id number]^JAVIER^CORDELL^RYAN Study ID: [id number] [facility] [place] [address] Pediatric Echocardiogram __ Name: JUDE BILLS Study Date: 03/13/2017 09:26 AM Patient Location: [facility] Age: 17 yrs : 2000 BP: 108/68 mmHg Gender: Male Patient Class: Outpatient Height: 163 cm Ordering Provider: CORDELL JUAREZ Weight: 5 7 kg Referring Provider: CORDELL JUAREZ BS A: 1.6 m2 Performed By: Lucina Vanegas Report approved by: Vinay Carroll Reason For Study: , Tachycardia, unspeci fied __ CONCLUSIONS Double outlet right ventricle, transposi tion of the great arteries (D-TGA) and a large anterior malalignment ventricula r septal defect status post Fontan operation. Status post device closure of Fontan fenestration. No fenestration is seen. There is laminar phasic color f low in the Fortino shunt. The right ventricular function has qualitatively m ildly depressed contractility. Upper mild tricuspid valve insufficiency. Ther e is laminar flow across the atrial level communication. No pericardial effu tin. __ Technical information: A complete two dimensional, MMODE, spect ral and color Doppler transthoracic echocardiogram is performed. The study q uality is fair. Images are obtained from parasternal, apical, subcostal and suprasternal notch views. Prior echocardiogram available for comparison. ECG tracing shows regular rhythm. ECG tracing shows sinus bradycardia at 50 bp m. Segmental Anatomy: There is normal atrial arrangement. Abse nt left atrioventricular connection. Systemic and pulmonary veins: There is laminar phasic color flow in th e Fortino shunt. Patient has undergone Fontan operation. The Fontan connection is widely patent with phasic laminar flow. Post device closure of Fontan fene stration. Atria and atrial septum: The right and left atria are normal in s ize. There is laminar flow across the atrial level communication. Post atrial septectomy. Atrioventricular valves: The tricuspid valve is normal in appeara nce and motion. Upper mild (1-2+) tricuspid valve insufficiency. The payal l valve has normal structure, size, insertion and function. Ventricles and Ventricular Septum: Double outlet right ventricle. There is mild right ventricular enlargement. The right ventricular function is qualit atively mild to moderately depressed. There is a large anterior malalignment v entricular septal defect. Outflow tracts: Complete transposition of the great chidi gavino (D-TGA). The systemic outflow tract is unobstructed. Tricuspid aortic valve with normal appearance and motion. There is no aortic valve insuffi ciency. There is no aortic valve stenosis. There is unobstructed antegrad e flow in the ascending, transverse arch, descending thoracic and abdominal aorta. Coronaries: The coronary arteries are not well visua lized. Effusions, catheters, cannulas and leads : No pericardial effusion. Doppler Measurements & Calculations MV E max dhruv: 56.3 cm/sec LV dP/dt: 866. 0 mmHg/s MV A max dhruv: 37.0 cm/sec MV E/A: 1.5 PA V2 max: 62.2 cm/sec RV V1 max: 46.4 c m/sec PA max P.5 mmHg RV V1 max P.86 m mHg desc Ao max dhruv: 99.1 cm/sec desc Ao max P.9 mmHg Report approved by: Vinay Carroll 03/13/2017 10:39 AM Cordell Juarez MD CV PEDS ECHO ORDERABLES Zio Patch Holter (03/13/2017) Narrative [facility] - 03/13/2017 [facility] [id number] [address] 03/13/2017 Patient: ??Jude Bills Chart: [id number] : ??2000 Age: ??17 year old Sex: ??male Procedure: ??ZioPatch Monitor. [employer] Affixer performing hook-up: ??Charles Matt Cordell Juarez MD CV CARDIAC SERVICES ORDERABL ES Performing Organization Address City/State/ZIP Code Phon e Number [facility] ELECTROCARDIOGRAM REPORT (03/13/2017) Narrative This result has an attachment that is no t available. Cordell Juarez MD PROCEDURES documented in this encounter Visit Diagnoses Diagnosis Tachycardia - Primary Tachycardia, unspecified Tachycardia Tachycardia, unspecified Tachycardia Tachycardia, unspecified documented in this encounter Care Teams Beater Engineer Relationship Specialty Start Date End Date Stephen Sauceda PCP - General Pediatrics 03/06/17 06/24/19 [facility] [address] [place] [address] documented as of this encounter
--- OUTSIDE RECORDS SUMMARY | 2022-04-10 09:58 | XMS_ITS | Encounter Summary ---
:2000 Author Organization [place] Address [address] [facility] [place] [address] Care Team Providers Name Role Phone Stephen Sauceda Primary Care Provider Reason for Visit (Routine) - Closed Specialty Diagnoses / Procedures Referred By Contact Refer red To Contact Cardiology Procedures Zz Rh Echocardiography [facility] CONGENITAL [address] [place], [place] [address] Phone: Referral ID Status Reason Start Date Expiration Date Visits Requ ested Visits Authorized [id number] Closed 03/13/2017 03/13/2018 1 1 Encounter Details Date Type Department Care Team Description 03/13/2017 Hospital Encounter [facility] Cordell Juarez MD Tachycardia Cardiopulmonary [address] [facility] [address] [place] [address] [phone] Social History Tobacco Use Types Packs/Day Years [...] (LASIX) 20 MG Take 0.5 tablets (10 30 tablet 3 0 09/06/2016 05/28/2017 tabletIndications: mg) by mouth daily Hypoplastic left heart syndrome lisinopril Take 1 tablet (10 90 tablet 3 03/12/2017 018 (PRINIVIL/ZESTRIL) 10 MG mg) by mouth daily tabletIndications: Hypoplastic left heart syndrome metoprolol (LOPRESSOR) 25 Take 1.5 tablets 90 tablet 11 08/1605/29/2017 MG tabletIndications: (37.5 mg) by mouth 2 Hypoplastic left heart times daily syndrome Montelukast Sodium 0 2018 (SINGULAIR PO) spironolactone Take 1 tablet by 30 tablet 2 03/12/201703/17 (ALDACTONE) 25 MG mouth daily. tabletIndications: Hypoplastic left heart syndrome warfarin (COUMADIN) 5 MG Take 1 tablet (5mg) 30 tablet 0 08/30/2018 tabletIndications: every day except Hypoplastic left heart Saturday and syndrome Saturday. Take 1/2 tablet (2.5 mg) every Saturday and Saturday documented as of this encounter Plan of Treatment Upcoming Encounters Date Type Specialty Care Team Description 07/27/2022 Ancillary Procedure Cardiology Coredll Juarez MD [facility] YAMILET MARINELLI [address] [address] (Wo rk) 07/27/2022 Office Visit Cardiology Cordell Juarez MD [address] [facility] [place] [address] [place], [place] [address] (Wo rk) documented as of this encounter Procedures Procedure Name Priority Date/Time Associated Diagnosis Comme nts ECHO PEDIATRIC Routine 03/13/2017 9:39 AM Tachycardia Results for this CONGENITAL CDT procedure are i n the results section. documented in this encounter Results Echo pediatric congenital (03/13/2017 9:39 AM CDT) Anatomical Region Laterality Modality Echocardiography Specimen (Source) Anatomical Collection Method Collection Time Re ceived Time Location / / Volume Laterality 03/13/2017 9:26 AM CDT Narrative 03/13/2017 10:39 AM CDT [id number]^JAVIER^CORDELL^RYAN ?Study ID: [id number] ?[facility] ?[facility] ?[address] ?[place] [address] ? Pediatric Echocardiogram __ Name: JUDE BILLS Study Date: 03/13/2017 09:26 AM ? Patient Location: [facility] ? Age: 17 yrs : 2000 [...] note might be different from the original. [id number] [facility] [id number]^JAVIER^CORDELL^RYAN Study ID: [id number] [address] [address] Pediatric Echocardiogram __ Name: JUDE BILLS Study Date: 03/13/2017 09:26 AM Patient Location: [facility] Age: 17 yrs : 2000 BP: [...] unspecified documented in this encounter Care Teams Crystalizer Tender Relationship Specialty Start Date End Date Stephen Sauceda PCP - General Pediatrics 03/06/17 06/24/19 [facility] [address] [place] [address] documented as of this encounter
--- OUTSIDE RECORDS SUMMARY | 2022-04-10 09:58 | XMS_ITS | Encounter Summary ---
:2000 Author Organization [place] Address [address] [facility] [place] [address] Care Team Providers Name Role Phone Komal Stephen Grant Primary Care Provider Encounter Details Date Type Department Care Team Description 03/13/2017 Hospital Encounter [facility] LarryCordell MD [facility] Laboratory [address] [facility] [address] [facility] [address] [place] [address] [phone] Social History Tobacco Use Types Packs/Day Years [...] Ancillary Procedure Cardiology Cordell Juarez MD [address] [id number] ( rk) 07/27/2022 Office Visit Cardiology Cordell Juarez MD [address] [facility] [place], [place] [address] (Arleen rk) documented as of this encounter Procedures Procedure Name Priority Date/Time Associated Comments Diagnosis CBC WITH PLATELETS & Routine 03/13/2017 11:24 Tachycardia Res ults for this DIFFERENTIAL AM CDT procedure are i n the results section. TSH Routine 03/13/2017 11:24 Tachycardia Results for this AM CDT procedure are i n the results section. N TERMINAL PRO BNP Routine 03/13/2017 11:24 Tachycardia Resul ts for this OUTPATIENT AM CDT procedure are i n the results section. COMPREHENSIVE Routine 03/13/2017 11:24 Tachycardia Results fo r this METABOLIC PANEL AM CDT procedure ar e in the results section. ANTITHROMBIN III Routine 03/13/2017 11:24 Tachycardia Results for this AM CDT procedure are i n the results section. documented in this encounter Results Antithrombin III (03/13/2017 11:24 AM CDT) Analysis Performed At Patho logist Time Signature Antithrombin III 116 85 - 135 % 03/[facility] Specimen Anatomical Collection Method Collection Time Receive d Time (Source) Location / / Volume Laterality Blood specimen 03/13/2017 11:24 7 (specimen) AM CDT 12:16 PM CDT Cordell Juarez MD LAB - BLOOD ORDERABLES Performing Organization Address City/State/ZIP Code Phon e Number [facility] [address] [place] [address] [facility] TSH (03/13/2017 11:24 AM CDT) athologist Signature TSH 3.44 0.40 - 4.00 03/13/2017 [facility] mU/L 12:46 PM T [facility] Specimen Anatomical Collection Method Collection Time Receive d Time (Source) Location / / Volume Laterality Blood specimen 03/13/2017 11:24 7 (specimen) AM CDT 12:16 PM CDT Cordell Juarez MD LAB - BLOOD ORDERABLES Performing Organization Address City/State/ZIP Code Phon e Number [facility] [address] [address] [facility] [address] [phone] N terminal pro BNP outpatient (03/13/2017 11:24 AM CDT) athologist Signature N-Terminal Pro 121 0 - 240 03/13/2017 [place] Bnp pg/mL 12:46 PM T [facility] Comment: Reference range shown and [...] Address City/State/ZIP Code Phon e Number [facility] [address] [address] [facility] [address] [place] [address] [facility] [phone] (ABNORMAL) Comprehensive metabolic panel (03/13/2017 11:24 AM CDT) athologist Signature Sodium 137 133 - 144 03/13/2017 [place] mmol/L 12:39 PM [facility] Potassium 4.6 3.4 - 5.3 03/13/2017 [place] mmol/L 12:39 PM [facility] Chloride 103 98 - 110 03/13/2017 [place] mmol/L 12:39 PM [facility] Carbon Dioxide 28 20 - 32 03/13/2017 [place] mmol/L 12:39 PM [facility] Anion Gap 6 3 - 14 03/13/2017 [place] mmol/L 12:39 PM [facility] Glucose 83 70 - 99 03/13/2017 [place] mg/dL 12:39 PM [facility] Urea Nitrogen 21 7 - 21 03/13/2017 [place] mg/dL 12:39 PM [facility] Creatinine 0.93 0.50 - 03/13/2017 [facility] 1.00 mg/dL 12:39 PM [facility] GFR Estimate >90 >60 03/13/2017 [place] mL/min/1.7 12:[address] Comment: Non GFR Calc GFR Estimate If >90 >60 mL/min/1.7m2 03/13/2017 12:39 PM [facility] Comment: GFR Calc Calcium 9.7 9.1 - 10.3 03/13/2017 12:39 PM [facility] mg/dL [facility] Bilirubin Total 1.4 (H) 0.2 - 1.3 mg/dL 03/13/2017 12:39 P M [facility] Albumin 4.6 3.4 - 5.0 g/dL 03/13/2017 12:39 PM [facility] Protein Total 8.1 6.8 - 8.8 g/dL 03/13/2017 12:[address] [facility] Alkaline Phosphatase 123 65 - 260 U/L 03/13/2017 12:39 PM [facility] ALT 24 0 - 50 U/L 03/13/2017 12:39 PM [facility] AST 19 0 - 35 U/L 03/13/2017 12:39 PM [facility] Specimen Anatomical Collection Method Collection Time Receive d Time (Source) Location / / Volume Laterality Blood specimen 03/13/2017 11:24 7 (specimen) AM CDT 12:16 PM CDT Cordell Juarez MD LAB - BLOOD ORDERABLES Performing Organization Address City/State/ZIP Code Phon e Number [place] [address] [address] [facility] [place] [address] [phone] (ABNORMAL) CBC with platelets differential (03/13/2017 11:24 AM CDT) [facility] Method Time Signature WBC 4.6 4.0 - 03/13/2017 [facility] 11.0 12:20 PM [facility] 10e9/L [facility] RBC Count 5.65 (H) 3.7 - 5.3 03/13/2017 [place] 10e12/L 12:20 PM [facility] Hemoglobin 16.3 (H) 11.7 - 03/13/2017 [facility] 15.7 g/dL 12:20 PM [facility] Hematocrit 49.2 (H) 35.0 - 03/13/2017 [place] 47.0 % 12:20 PM [facility] MCV 87 77 - 100 03/13/2017 [facility] fl 12:20 PM [facility] MCH 28.8 26.5 - 03/13/2017 [facility] 33.0 pg 12:20 PM [facility] MCHC 33.1 31.5 - 03/13/2017 [facility] 36.5 g/dL 12:20 PM [facility] RDW 13.2 10.0 - 03/13/2017 [facility] 15.0 % 12:20 PM [facility] Platelet Count 206 150 - 450 03/13/2017 [facility] 10e9/L 12:20 PM [facility] Diff Method Automated 03/13/2017 [facility] Method 12:20 PM [facility] % Neutrophils 54.1 % 03/13/2017 [facility] 12:20 PM [facility] % Lymphocytes 32.0 % 03/13/2017 [facility] 12:20 [facility] % Monocytes 10.2 % 03/13/2017 [facility] 12:20 PM [facility] % Eosinophils 2.6 % 03/13/2017 [facility] 12:20 PM [facility] % Basophils 0.9 % 03/13/2017 [facility] 12:20 PM [facility] % Immature 0.2 % 03/13/2017 [facility] Granulocytes 12:20 PM [facility] Nucleated RBCs 0 0 /100 03/13/2017 [facility] 12:20 PM [facility] Absolute 2.5 1.3 - 7.0 03/13/2017 [facility] Neutrophil 10e9/L 12:20 PM [facility] Absolute 1.5 1.0 - 5.8 03/13/2017 [facility] Lymphocytes 10e9/L 12:20 PM [facility] Absolute 0.5 0.0 - 1.3 03/13/2017 [facility] Monocytes 10e9/L 12:20 PM [facility] Absolute 0.1 0.0 - 0.7 03/13/2017 [facility] Eosinophils 10e9/L 12:20 [facility] Absolute 0.0 0.0 - 0.2 03/13/2017 [facility] Basophils 10e9/L 12:20 PM [facility] Abs Immature 0.0 0 - 0.4 03/13/2017 [facility] Granulocytes 10e9/L 12:20 PM [facility] Absolute 0.0 03/13/2017 [place] Nucleated RBC 12:20 PM [facility] Specimen Anatomical Collection Method Collection Time Receive d Time (Source) Location / / Volume Laterality Blood specimen 03/13/2017 11:24 7 (specimen) AM CDT 12:16 PM CDT Cordell Juarez MD LAB - BLOOD ORDERABLES Performing Organization Address City/State/ZIP Code Phon e Number [facility] [address] [address] [place] [address] [phone] documented in this encounter Visit Diagnoses Diagnosis Tachycardia Tachycardia, unspecified documented in this encounter Care Teams Warehouse Record Clerk Relationship Specialty Start Date End Date Stephen Sauceda PCP - General Pediatrics 03/06/17 06/24/19 [facility] [address] [place] [address] documented as of this encounter
--- OUTSIDE RECORDS SUMMARY | 2022-04-10 09:58 | XMS_ITS | Encounter Summary ---
:2000 Author Organization [place] Address [address] [facility] [place] [address] Care Team Providers Name Role Phone Stephen Sauceda Primary Care Provider Reason for Visit Reason Comments Medication Refill Encounter Details Date Type Department Care Team Description 03/12/2017 Refill [facility] Cordell Juarez MD Medication Refill Explorer Pediatric [facility] [facility] [address] [place] [address] [place] [address] [place] [address] Social History Tobacco Use Types [...] Procedure Cardiology Cordell Juarez MD [address] [facility] [place] [address] (Wo rk) 07/27/2022 Office Visit Cardiology LarryCordell MD [address] [facility] [place] [address] (Wo rk) documented as of this encounter 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
--- OUTSIDE RECORDS SUMMARY | 2022-04-10 09:58 | XMS_ITS | Encounter Summary ---
:2000 Author Organization [place] Address [facility] [place] [address] Care Team Providers Name Role Phone Stephen Sauceda Primary Care Provider Reason for Visit Reason Onset Date Comments Clinic Care Coordination - Initial 03/06/2017 Encounter Details Date Type Department Care Team Description 03/06/2017 Telephone [facility] Kirsten Montes De Oca, [facility] Care Coordination Explorer smoke inspector - Initial Specialty Clinic [address] [place] [address] Expl[facility] Clinic [address] [place] [address] Social History Tobacco Use Types Packs/Day Years Used Date Smoking Tobacco: Never Comments: none at home Alcohol Use Standard Drinks/Week Comments No 0 (1 standard drink = 0.6 oz pure alcoho l) Sex Assigned at Date Recorded Male 03/09/2019 1:21 PM CDT documented as of this encounter Miscellaneous Notes Addendum Note - Yair Espinosa RN - 03/07/2017 9:05 AM CDT Addended by: YAIR ESPINOSA on: 03/07/2017 09:05 AM Modules accepted: Orders Telephone Encounter - Kirsten Montes De Oca RN - 03/06/2017 2:28 PM CDT A call was received from Jude Etienne's mother regarding Jude. Jude called her from school and advised Mom that he was experiencing chest pain and PVC. Per Mom, Jude experience this previously about a week ago, lasting 3-4 hours. Mom reports Jude's heart rate in nurses office today (at school) is 68, where he normally runs in the 40s. Jude stated to her it was pain as previous episode exhibited. Lesley was enroute to school to pick Jude up and bring to the emergency department. Mom stated she felt Jude was ok but wanted him to be checked out. Chuyita Abdi MD updated as well as Erika Sow MD. documented in this encounter Plan of Treatment Upcoming Encounters Date Type Specialty Care Team Description 07/27/2022 Ancillary Procedure Cardiology Cordell Juarez MD [address] [facility] [place] [address] (Wo rk) 07/27/2022 Office Visit Cardiology Cordell Juarez MD [address] [facility] [address] [place] [address] (Wo rk) documented as of this encounter Visit Diagnoses Diagnosis Palpitations - Primary Chest pain Chest pain, unspecified documented in this encounter Care Teams Muskrat Trapper Relationship Specialty Start Date End Date Stephen Sauceda PCP - General Pediatrics 03/06/17 06/24/19 [facility] [address] [place] [address] documented as of this encounter
--- OUTSIDE RECORDS SUMMARY | 2022-04-10 09:58 | XMS_ITS | Encounter Summary ---
:2000 Author Organization [place] Address [address] [facility] [place] [address] Care Team Providers Name Role Phone Stephen Sauceda Rudy Primary Care Provider Reason for Visit Reason Comments RECHECK here for Zio Results and f/u for chest pain Encounter Details Date Type Department Care Team Description 05/29/2017 Office Visit [facility] Cordell Juarez, Tach ycardia (Primary Dx); Pediatric Specialty Single ventricle with heterotaxia syndro [facility] [address] [place] [address] [address] [place] [address] [phone] Social History Tobacco Use Types Packs/Day Years Used Date Smoking Tobacco: Never Comments: none at home Alcohol Use Standard Drinks/Week Comments No 0 (1 standard drink = 0.6 oz pure alcoho l) Sex Assigned at Date Recorded Male 03/09/2019 1:21 PM CDT documented as of this encounter Last Filed Vital Signs Vital Sign Reading Time Taken Comments Blood Pressure 93/54 05/29/2017 10:04 AM MANAGER [facility] Pulse 54 05/29/2017 10:04 AM MANAGER [facility]ATORY Temperature - - Respiratory Rate 24 05/29/2017 10:04 AM MANAGER REGULATORY Oxygen Saturation 93% 05/29/2017 10:04 AM MANAGER REGULATORY Inhaled Oxygen Concentration - - Weight 57.9 kg (127 lb 10.3 oz) 05/29/2017 10:04 AM MANAGER REGULATORY Height 162.7 cm (5' 4.06) 05/29/2017 10:04 AM MANAGER REGULATORY Body Mass Index 21.87 05/29/2017 10:04 AM MANAGER REGULATORY Body Mass Index Percentile 55.95 % 05/29/2017 10:04 AM MANAGER REGULATORY Growth Chart: [facility] (Boys, 2-20 Years) documented in this encounter Progress Notes Cordell Juarez MD - 05/29/2017 10:00 AM CST Pediatric Cardiology Visit Patient: Jude Bills Date of : 2000 Age: 16 years 7 months Date of Visit: May 29, 2017 PCP: Ana Li [place] Dear Dr. Winchester, I had the pleasure of seeing your patient, Jude Bills, in the Pediatric Cardiology Clinic at the [facility] on May 29, 2017. 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 He underwent a central shunt, followed by a Fortino procedure and completion of a Fontan procedure at the [facility] in [place]. He had catheter closure of his Fontan fenestration at the [facility] in January 2007. Jdue is here today for a follow up visit after evaluation for ongoing episodes of chest pain and irregular heart rate. We stopped his coumadin at his last visit dueto a calf injury with hematoma. SInce his last visit Jude has had fecurrent chest pain and a feelingof irregular rhythm. He was evaluated in the [place] ER and stable VS and ECG which showed a HR of about 58 bpm. He reports feeling well today with persistent chest pain, primarily sharp and radiating to the back at rest. It is often accompanied by a slow heart rate. He does not feel dizzy or have visual changes or headache. No syncope, no exercise intolerance, ankle swelling comes and goes but overall improved, no abdominal pain. Jude has hadrepeated rhythm monitoring, he has a slow baseline HR with salvos of atrial tachycardia. He is on low dose metoprolol. I did discuss this with Dr. López with EP who would like him back on anticoagulation with continued monitoring. If his symptoms worsen she would consider a repeat EP study. Jude had an episode of Severe chest pain in February 2017 that promted an evaluation. Echo at thattime was at baseline, labs were Jude had an EP study done on 01/18/16 after he had noted having severeepisodes of fatigue at least monthly for the previous 6 months. The EP study demonstrated normal AV node function with [...] to colitis that was exacerbated by aspirin, but is not currently an issue. Jude is currently in 11th grade and he has an IEP. He does not participate in any regular exercise. He plays baseball, but is no longer playing basketball. 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 He is now off his Coumadin, was on previously with a goal range of 2-2.5. Prescription Medications as of 05/29/2017 furosemide (LASIX) 20 MG tablet Take 0.5 tablets (10 mg) by mouth daily spironolactone (ALDACTONE) 25 MG tablet Take 1 tablet by mouth daily. lisinopril (PRINIVIL/ZESTRIL) 10 MG tablet Take 1 tablet (10 mg) by mouth daily digoxin (LANOXIN) 250 MCG tablet Take 1 tablet (250 mcg) by mouth daily Montelukast Sodium (SINGULAIR PO) metoprolol (LOPRESSOR) 25 MG tablet Take 1.5 tablets (37.5 mg) by mouth 2 times daily spironolactone (ALDACTONE) 25 MG tablet Take 1 tablet (25 mg) by mouth daily warfarin (COUMADIN) 5 MG tablet Take 1 tablet (5mg) every day except Saturday and Saturday. Take 1/2 tablet (2.5 mg) every Saturday and Saturday No longer takes omeprazole FH/SH: Jude and his family live in [place]. His mother is a nurse at [employer]. His height is 1.627 m (5' 4.06) and weight is 57.9 kg (127 lb 10.3 oz). His blood pressure is 93/54and his pulse is 54. His respiration is 24 and oxygen saturation is 93%. His body mass index is 21.87 kg/(m^2). His body surface area is 1.62 meters squared. Growth percentiles are 35th% for weight and5% for height. In general, he is a very well-appearing young man with no central or peripheral cyanosis. Head and neck examination is unremarkable. Pupils are reactive and sclera are not jaundiced. There is no conjunctival injection or discharge. Mucous membranes are moist and pink. Lungs are clear toauscultation bilaterally. He has a well-healed midline sternotomy scar with a normal S1 and a singleS2. He has a grade 2/6 systolic ejection murmur at the left upper sternal border, and no rubs, gallops or diastolic murmurs. Abdominal examination is benign with no hepatosplenomegaly or masses. Radialand femoral pulses are normal and extremities are [...] twice daily Average HR was 56 bpm ([id number]) 779 PVC's (< 1% = rare), no couplets or sustained arrhythmias. 1 PAC. Holter JAMES. Todd 03/13- Atrial tach at 167 bpm. [...] tachycardia. No CHFor other hemodynamic findings. Recommendations: 1. Restart anticoagulation- will trial ASA 81 mg and check verify now for platelet activity in 2-3 weeks 2. Change metoprolol 25 mg bid to metoprolol XR 25 mg daily 3. Trial of sildenafil 20 mg tid - will need preauthorization. 4. Check dig level with verify now testing 5. To ER if sustained arrhythmias, syncope, or new symptoms. 6. F/U 2 months post starting sildenafil for recheck with repeat one week zio. Sincerely, Cordell Juarez M.D. [facility] Steward/Stewardess of Pediatrics Division of Pediatric Cardiology [facility] Addendum: Jude wore a ziopatch from 03/13/17 [...] were associated with sinus rhythm. 04/10/17 [facility] documented in this encounter Nursing Notes Delicia Izaguirre RN - 05/29/2017 10:00 AM CST Informant- Jude is accompanied by mother Reason for Visit- Here for f/u for Zio holter and chest pain, echo today Vitals signs- BP 93/54 (BP Location: Right arm) Pulse 54 Resp 24 Ht 1.627 m (5' 4.06) Wt 57.9 kg (127 lb 10.3 oz) SpO2 93% BMI 21.87 kg/m2 There are concerns about the child's exposure to violence in the home: No Face to Face time: 10 minutes Delicia Izaguirre RN [facility] documented in this encounter Plan of Treatment Upcoming Encounters Date Type Specialty Care Team Description 07/27/2022 Ancillary Procedure Cardiology Cordell Juarez MD [address] [facility] [address] [place], [place] [id number] (Wo rk) 07/27/2022 Office Visit Cardiology Cordell Juarez MD [address] [facility] [address] [place], [place] [address] (Wo rk) documented as of this encounter Procedures Procedure Name Priority Date/Time Associated Diagnosis Comme [facility] ELECTROCARDIOGRAM Routine 05/29/2017 Tachycardia Resul ts for this REPORT, SUBSEQUENT - ED proc edure are in ONLY the results section. documented in this encounter Results Echo pediatric congenital (05/29/2017 10:38 AM MANAGER REGULATORY) Anatomical Region Laterality Modality Echocardiography Specimen (Source) Anatomical Collection Method Collection Time Re ceived Time Location / / Volume Laterality 05/29/2017 10:10 AM MANAGER REGULATORY Narrative 05/29/2017 12:11 PM MANAGER REGULATORY [id number]^JAVIER^CORDELL^RYAN ?Study ID: [id number] ?[facility] ?[facility] ?[address] ?[place], [place] [address] ? Pediatric Echocardiogram __ Name: JUDE BILLS Study Date: 05/29/2017 10:10 AM ? Patient Location: [facility] ? Age: 17 yrs : 2000 ? BP: 93/54 mmHg Gender: Male Patient Class: Outpatient ? Height: 163 cm Ordering Provider: CORDELL JUAREZ ?Weight: 58 kg Referring Provider: CORDELL JUAREZ ? BSA: 1.6 m2 Performed By: Amanda Crawford RDCS Report approved by: Artemio Silva MD Reason For Study: , Tachycardia __ CONCLUSIONS Double outlet right ventricle, transposi tion of the great arteries (D-TGA) and a large anterior malalignment ventricula r septal defect status after Fontan operation. Previous device closure of Fo ntan fenestration. The Fontan fenestration device is in good position. There is laminar phasic color flow in the Fortino shunt. The right ventricle has qualitatively mildly depressed contractility. Upper mild tricuspid valv e insufficiency. No pericardial effusion. There is no [...] rhythm. ECG tracing shows sinus bradycardia at 43 bp m. Segmental Anatomy: There is normal [...] cannulas and leads : No pericardial effusion. desc Ao max dhruv: 119.0 cm/sec desc Ao max P.7 mmHg Report approved by: Janee Carolina 05/17 12:11 PM Procedure Note Artemio Silva MD - 05/29/2017 [id number] [facility] [id number]^JAVIER^CORDELL^RYAN Study ID: [id number] [facility] [address] [address] Pediatric Echocardiogram __ Name: JUDE BILLS Study Date: 05/29/2017 10:10 AM Patient Location: [facility] Age: 17 yrs : 2000 BP: 93/54 mmHg Gender: Male Patient Class: Outpatient Height: 163 cm Ordering Provider: CORDELL JUAREZ Weight: 5 8 kg Referring Provider: CORDELL JUAREZ A: 1.6 m2 Performed By: Amanda Crawford RDCS Report approved by: Artemio Silva MD Reason For Study: , Tachycardia __ CONCLUSIONS Double outlet right ventricle, transposi tion of the great arteries (D-TGA) and a large anterior malalignment ventricula r septal defect status after Fontan operation. Previous device closure of Fo ntan fenestration. The Fontan fenestration device is in good position. There is laminar phasic color flow in the Fortino shunt. The right ventricle has qualitatively mildly depressed contractility. Upper mild tricuspid valv e insufficiency. No pericardial effusion. There is no [...] rhythm. ECG tracing shows sinus bradycardia at 43 bp m. Segmental Anatomy: There is normal [...] cannulas and leads : No pericardial effusion. desc Ao max dhruv: 119.0 cm/sec desc Ao max P.7 mmHg Report approved by: Janee Carolina 05/17 12:11 PM Cordell Juarez MD CV PEDS ECHO ORDERABLES ELECTROCARDIOGRAM REPORT (05/29/2017) Narrative This result has an attachment that is no t available. Cordell Juarez MD PROCEDURES documented in this encounter Visit Diagnoses Diagnosis Tachycardia - Primary Tachycardia, unspecified Single ventricle with heterotaxia syndro me Other specified congenital anomalies Tachycardia Tachycardia, unspecified documented in this encounter Care Teams Manager Heart Relationship Specialty Start Date End Date Stephen Sauceda PCP - General Pediatrics 03/06/17 06/24/19 [facility] [address] [place] [address] documented as of this encounter
--- OUTSIDE RECORDS SUMMARY | 2022-04-10 09:58 | XMS_ITS | Encounter Summary ---
:2000 Author Organization [place] Address [address] [facility] [place] [address] Care Team Providers Name Role Phone Unavailable Primary Care Provider Unavailable Reason for Visit (Routine) - Closed Specialty Diagnoses / Procedures Referred By Contact Refer red To Contact Cardiology Procedures [facility] Echo Lab [facility]ATR[facility] CONGENITAL [address] [facility] [place] [phone] Referral ID Status Reason Start Date Expiration Date Visits Requ ested Visits Authorized [id number] Closed 09/06/2016 09/06/2017 1 1 Encounter Details Date Type Department Care Team Description 09/06/2016 Hospital Encounter [facility] Echo/EKG Javier, Cordell Barajas, Hypoplastic left heart syndr ome; [address] MD Tachycardia with heart rate 100-120 beat s per minute [place] [id number] [address] [place] [address] Social History Tobacco Use Types Packs/Day Years Used Date Smoking Tobacco: Never Comments: none at home Alcohol Use Standard Drinks/Week Comments No 0 (1 standard drink = 0.6 oz pure alcoho l) Sex Assigned at Date Recorded Male 03/09/2019 1:21 PM CDT documented as of this encounter Medications at Time of Discharge Medication Sig Dispensed Refills Start Date End Date dexmethylphenidate (FOCALIN Take 15 mg by 0 03/13/2017 XR) 15 MG 24 hr mouth daily capsuleIndications: Reported on Hypoplastic left heart 09/14/2016 syndrome digoxin (LANOXIN) 250 MCG Take 1 tablet (250 30 tablet 11 03/12/2017 tabletIndications: SVT mcg) by mouth (supraventricular daily tachycardia) (H) furosemide (LASIX) 20 MG Take 0.5 tablets 30 tablet 3 09/0605/28/2017 tabletIndications: (10 mg) by mouth Hypoplastic left heart daily syndrome lisinopril Take 1 tablet (10 90 tablet 3 02/28/2016 017 (PRINIVIL,ZESTRIL) 10 MG mg) by mouth daily tabletIndications: Hypoplastic left heart syndrome Loratadine (CLARITIN PO) Take 10 mg by 0 03/06/2017 mouth daily Reported on 09/14/2016 metoprolol (LOPRESSOR) 25 Take 1.5 tablets 90 tablet 08/1605/29/2017 MG tabletIndications: (37.5 mg) by mouth Hypoplastic left heart 2 times daily syndrome spironolactone (ALDACTONE) Take 1 tablet (25 45 tablet 3 03/12/2017 25 MG tabletIndications: mg) by mouth daily Hypoplastic left heart syndrome warfarin (COUMADIN) 5 MG Take 1 tablet 30 tablet 0 01/20/20 16 08/30/2018 tabletIndications: (5mg) every day Hypoplastic left heart except Saturday and Saturday. Take 1/2 tablet (2.5 mg) every Saturday and Saturday documented as of this encounter Plan of Treatment Upcoming Encounters Date Type Specialty Care Team Description 07/27/2022 Ancillary Procedure Cardiology Cordell Juarez MD [address] [place], [place] [id number] (Wo rk) 07/27/2022 Office Visit Cardiology Cordell Juarez MD [address] [place], [place] [phone] (Arleen valdes) documented as of this encounter Procedures Procedure Name Priority Date/Time Associated Diagnosis Comme nts ECHO PEDIATRIC Routine 09/06/2016 3:41 PM Hypoplastic left Res ults for this CONGENITAL CDT heart syndrome procedure are in Tachycardia with the results heart rate 100-120 section. beats per minute documented in this encounter Results Echo Pediatric Congenital (09/06/2016 3:41 PM CDT) Anatomical Region Laterality Modality Echocardiography Specimen (Source) Anatomical Collection Method Collection Time Re ceived Time Location / / Volume Laterality 09/06/2016 3:19 PM CDT Narrative 09/07/2016 12:26 AM CDT [id number]^JAVIER^CORDELL^RYAN ?Study ID: [id number] ?[facility] ?[facility] ?[address] ?[place] [address] ? Pediatric Echocardiogram __ Name: JUDE BILLS Study Date: 09/06/2016 03:19 PM ?Patient Location: [facility] ?Age: 16 yrs : 2000 ?BP: 119/62 mmHg Gender: Male ? HR: 50 Patient Class: Outpatient ?Height: 38.5 in Ordering Provider: CORDELL JUAREZ ? Weight: 130 lb Referring Provider: CORDELL JUAREZ ?BSA: 1.1 m2 Performed By: Delicia Hernandez RDCS Report approved by: Jayme moseley MD Reason For Study: , Hypoplastic left hea rt syndrome, Tachycardia, unspecified __ CONCLUSIONS Double outlet right ventricle, transposi [...] Post device closure of Fontan fene stration. Color flow demonstrates flow from at least one pulmonary vein enterin g the left atrium. Atria and atrial septum: [...] Measurements & Calculations MV E max dhruv: 75.0 cm/sec ? Ao V2 max: 55.3 cm/sec MV A max dhruv: 37.0 cm/sec ? Ao max P.2 mmHg MV E/A: 2.0 asc Ao max dhruv: 83.4 cm/sec ? desc Ao max dhruv: 120.7 cm/sec asc Ao max P.8 mmHg ? desc Ao max P.8 mmHg Report approved by: Janee Stapleton 09/07/2016 12:26 AM Procedure Note Kofi Swan MD - 09/07 [id number] [facility] [id number]^JAVIER^CORDELL^RYAN Study ID: [id number] [facility] [address] Pediatric Echocardiogram __ Name: JUDE BILLS Marquis Study Date: 09/06/2016 03:19 PM Patient Location: [facility] Age: 16 yrs : 2000 BP: 119/62 mmHg Gender: Male HR: 50 Patient Class: Outpatient Height: 38.5 i n Ordering Provider: CORDELL JUAREZ Weight: 1 30 lb Referring Provider: CORDELL JUAREZ BS A: 1.1 m2 Performed By: Delicia Hernandez RDCS Report approved by: Jayme moseley MD Reason For Study: , Hypoplastic left hea rt syndrome, Tachycardia, unspecified __ CONCLUSIONS Double outlet right ventricle, transposi [...] Post device closure of Fontan fene stration. Color flow demonstrates flow from at least one pulmonary vein enterin g the left atrium. Atria and atrial septum: [...] Measurements & Calculations MV E max dhruv: 75.0 cm/sec Ao V2 max: 55. 3 cm/sec MV A max dhruv: 37.0 cm/sec Ao max P.2 mmHg MV E/A: 2.0 asc Ao max dhruv: 83.4 cm/sec desc Ao max dhruv: 120.7 cm/sec asc Ao max P.8 mmHg desc Ao max P.8 mmHg Report approved by: Janee Stapleton 09/07/2016 12:26 AM Cordell Juarez MD CV PEDS ECHO ORDERABLES documented in this encounter Visit Diagnoses Diagnosis Hypoplastic left heart syndrome Tachycardia with heart rate 100-120 beat s per minute documented in this encounter
--- OUTSIDE RECORDS SUMMARY | 2022-04-10 09:58 | XMS_ITS | Encounter Summary ---
:2000 Author Organization [facility] Address [address] [facility] [place] [address] Care Team Providers Name Role Phone Unavailable Primary Care Provider Unavailable Reason for Visit Reason Comments Shortness of Breath Chest Pain Encounter Details Date Type Department Care Team Description 08/31/2016 Emergency [facility] SophiaGuille menendez Heart p alpitations; [facility] Emergency MD Jaclyn History of corrected congenital malforma tion of heart Department [address] [facility] [address] [facility] [address] [place] [address] [place], [place] [phone] (Wo rk) Social History Tobacco Use Types Packs/Day Years Used Date Smoking Tobacco: Never Comments: none at home Alcohol Use Standard Drinks/Week Comments No 0 (1 standard drink = 0.6 oz pure alcoho l) Sex Assigned at Date Recorded Male 03/09/2019 1:21 PM CDT documented as of this encounter Last Filed Vital Signs Vital Sign Reading Time Taken Comments Blood Pressure 110/57 08/31/2016 12:30 PM CDT Pulse 57 08/31/2016 12:22 PM CDT Temperature 36.6 ??C (97.8 ??F) 08/31/2016 12:22 PM CDT Respiratory Rate 11 08/31/2016 12:30 PM CDT Oxygen Saturation 96% 08/31/2016 12:30 PM CDT Inhaled Oxygen Concentration - - Weight 58.4 kg (128 lb 12 oz) 08/31/2016 10:31 AM CDT Height - - Body Mass Index 22.31 05/23/2016 2:27 PM 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 (Boys, 2-20 Years) documented in this encounter Discharge Instructions Discharge InstructionsMelony Harkins MD - 08/31/2016 12:12 PM CDT Emergency Department Discharge Information for Jude Roque was seen in the [facility] Emergency Department today for heart palpitations by Dr. Cortes and Dr. Harkins. You had a chest x ray, EKG (heart tracing), and labs that were normal. You had a holter monitor placed for 48 hours. If Jude has discomfort from fever or other pain, he can have: Acetaminophen (Tylenol) every 4-6 hours as needed (no more than 5 doses per day). His dose is: 20 ml (640 mg) of the infant???s or children???s liquid OR 2 regular strength tabs (650 mg) (43.2+ kg/96+ lb) NOTE: If your acetaminophen (Tylenol) came with a dropper marked with 0.4 and 0.8 ml, call us ([phone]) or check with your doctor about the dose before using it. Please make an appointment to follow up with [facility] (phone: ). Please call in 1-2 days to set up an appointment (they will help you determine how soon you need to get in) Medication side effect information: All medicines may [...] your doctor if you have liver disease documented in this encounter Medications at Time of Discharge Medication Sig Dispensed Refills Start Date End Date dexmethylphenidate (FOCALIN Take 15 mg by 0 03/13/2017 XR) 15 MG 24 hr mouth daily capsuleIndications: Reported on Hypoplastic left heart 09/14/2016 syndrome digoxin (LANOXIN) 250 MCG Take 1 tablet (250 30 tablet 11 03/12/2017 tabletIndications: SVT mcg) by mouth (supraventricular daily tachycardia) (H) lisinopril Take 1 tablet (10 90 tablet 3 02/28/2016 017 (PRINIVIL,ZESTRIL) 10 MG mg) by mouth daily tabletIndications: Hypoplastic left heart syndrome Loratadine (CLARITIN PO) Take 10 mg by 0 03/06/2017 mouth daily Reported on 09/14/2016 metoprolol (LOPRESSOR) 25 Take 1 tablet (25 60 tablet 11 09/06/2016 MG tabletIndications: mg) by mouth 2 Hypoplastic left heart times daily syndrome spironolactone (ALDACTONE) Take 0.5 tablets 45 tablet 3 09/06/2016 25 MG tabletIndications: (12.5 mg) by mouth Hypoplastic left heart daily syndrome warfarin (COUMADIN) 5 MG Take 1 tablet 30 tablet 0 01/20/20 16 08/30/2018 tabletIndications: (5mg) every day Hypoplastic left heart except Saturday and Saturday. 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 He had catheter closure of his Fontan fenestration at the [facility] in January 2007. Jude had an EP study done on [...] He was started on metoprolol at that time. He now presents with complaints of palpitations and intermittent chest pain. Echo (11/23/15): Double outlet right ventricle. There is a large anterior malalignment ventricular septal defect. Complete transposition of the great arteries (D- TGA). Patient has undergone Fontan operation. There is laminar phasic color flow in the Fortino shunt. The right ventricular function is qualita tively mild to moderately depressed. Mild (1+) tricuspid valve insufficiency. Post stenting of Fontan fenestration. No fenestration is seen. EKG (11/22/16): Sinus bradycardia, right axis deviation. Holter (11/30/15): Narrow complex tachycardia, consistent with atrial tachycardia. Recommendations: 1. Has new palpitations similar to previous episodes of atrial tachycardia, please place a holter monitor to further assess for any arrhythmias. 2. Follow up with Dr. Juarez/Henry in/2 weeks with echo. 3. Notify cardiology if any further changes or concerns. 4. Continue current medication regimen. Saw Bardales DO Pediatric Airworthiness Inspector Chief Complaint: Palpitations for 20 mins on the day of this visit. 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 He had catheter closure of his Fontan fenestration at the [facility] in January 2007. Jude had an EP study done on 01/18/16 after he had noted having severe episodes of fatigue at least monthly for the previous 6 months. The EP study demonstrated normal AV node function with dual AV node physiology and noinducible AVNRT, but he did have a nonspecific atrial tachycardia that terminated spontaneously witha ventricular electrogram after Isuprel was turned off. He was started on metoprolol at that time. Since then has done well with intermittent episodes of chest pain for which he recently saw Dr. Juarez in May for which an unremarkable Zio patch was placed. On the day of this visit, he experienced an episode of palpitations which began in class. It lasted 20 minutes and was associated with some mild dizziness. He otherwise felt well. During this time he felt like he was having minor substernal chest pain which did not radiate and was pulsatile in nature. He was evaluated by his school nurse and was noted to have saturations transiently in the 70s which resolved prior to arrival in the ED. PMH: Past Medical History Diagnosis Date ??? 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 Congenital anomalies of spleen Polysplenia ??? Esophageal reflux ??? 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 C repr by modified fontan fenestrated fontan ??? 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 ? Hc circumcision surgical non-dev >28 days age 2004 ??? Heart cath child N/A 01/18/2016 Procedure: HEART CATH CHILD; Surgeon: Akash Graves MD; [facility] ??? Ep study child N/A 01/18/2016 Procedure: EP STUDY CHILD; Surgeon: Marion Figueroa MD; [facility] ??? Ep ablation child N/A 01/18/2016 Procedure: EP ABLATION CHILD; Surgeon: Marion Figueroa MD; [facility] OR Family History: Family History Problem Relation Age of Onset ??? Adopted: Yes ??? Unknown/Adopted child adopted from [place] at 10mo of age ??? Unknown/Adopted ??? Unknown/Adopted Social History: Social History Social History ??? [...] ??? Not on file Social History Narrative Attending Attestation: Attestation: This patient has been seen and evaluated by me, Marisabel Ugarte MD. Discussed with the resident and agree with the findings and plan in this note. I have reviewed today's vital signs, medications, labs and imaging. Marisabel Ugarte MD, PhD Jude has been on metoprolol for atria tachycardia. He continues to have 30 minute episodes of tachycardia with chest pain that are self-resolved. On exam today he has sinus bradycardia and is not asymptomatic with sats in the low 90s. Holter placed; follow-up with Dr. Juarez/Henry in 2 weeks. Review of Systems: Review of systems per HPI, all other systems reviewed and negative x 12. Medications: Physical Exam: Vital Ranges Hemodynamics Temp: [98.2 ??F (36.8 ??C)] 98.2 ??F (36.8 ??C) Pulse: [51] 51 Heart Rate: [47-51] 47 Resp: [11-17] 17 BP: (116-123)/(64-81) 116/64 SpO2: [97 %-100 %] 97 % BP - Mean: [80-91] 80 Vitals: 08/31/16 1031 Weight: 128 lb 12 oz (58.4 kg) Weight change: General - In bed, NAD, comfortable HEENT - NCAT, MMM, No JVD Cardiac - Single S1, single S2, RRR, bradycardic, no murmur Respiratory - CTAB/L, No W/R/R Abdominal - Soft, NTND, +BS, Liver nonpalpable Ext / Skin - No C/C/E, Good CR Neuro - Moves all extremities Labs Recent Labs Lab 08/31/16 1037 NA 139 POTASSIUM 5.7* CHLORIDE 110 CO2 23 BUN 20 CR 0.68 GOYO 8.9* Recent Labs Lab 08/31/16 1037 ALBUMIN 4.4 Recent Labs Lab 08/31/16 1044 08/31/16 1042 LACT 1.2 1.2 Recent Labs Lab 08/31/16 1037 HGB 16.9* PLT 217 PTT 59* INR 2.66* Recent Labs Lab 08/31/16 1037 WBC 4.7 CRP <2.9 No lab results found in last 7 days. ABGNo results for input(s): PH, PCO2, PO2, HCO3 in the last 168 hours. VBG Recent Labs Lab 08/31/16 1044 08/31/16 1042 PHV 7.34 7.35 PCO2V 49 47 PO2V 34 30 HCO3V 26 26 documented in this encounter ED Notes Tonya Mejia RN - 08/31/2016 10:44 AM CDT Mom out of town phone number is [phone]. Dad is on his way to the ER. Pt arrived with a [employer] [facility] school Tonya Mejia RN - 08/31/2016 10:34 AM CDT Pt had some shortness of breath, chest pain, chest pressure today around 0800. Pt had a episode likethis yesterday also but it went away. Pt has no cold symptoms. At school pt's oxygen sats were in the 70s%. On arrival pt is having no shortness of breath, no pain. Guille Cortes MD - 08/31/2016 10:22 AM CDT History Chief Complaint Patient presents with ??? Shortness of Breath ??? Chest Pain HPI History obtained from patient Jude is a 16 year old boy with history of left heart hypoplasia s/p Fontan with closure of fenestration of who presents at 10:28 AM with chest palpitations, shortness of breath at around 8 AM. He was at school around 8 am when he noted chest palpitations and shortness of breath. He went to the nurses office and was noted to have oxygen saturation in 70s. He was placed on oxygen by first responders. When EMS, arrived he was sating mid 90s off oxygen and did not require oxygen in transit. Jude states he has been having these episodes for past several months and was seen by Dr. Juarez on 05/23/16. He hadEP showing nonspecific atrial tachycardia and was started on metoprolol which he has continued on. He has had no recent illnesses, fevers, or cough. He averages two episodes of palpitations per week usually at rest. He did have any episode of palpitations yesterday which resolved without intervention.Today's episode if different because it was associated with shortness of breath. He denies any drug use. PMHx: Past Medical History Diagnosis Date ??? 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 Congenital anomalies of spleen Polysplenia ??? Esophageal reflux ??? 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 C repr by modified fontan fenestrated fontan ??? 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 ? Hc circumcision surgical non-dev >28 days age 2004 ??? Heart cath child N/A 01/18/2016 Procedure: HEART CATH CHILD; Surgeon: Akash Graves MD; [facility] ??? Ep study child N/A 01/18/2016 Procedure: EP STUDY CHILD; Surgeon: Marion Figueroa MD; [facility] ??? Ep ablation child N/A 01/18/2016 Procedure: EP ABLATION CHILD; Surgeon: Marion Figueroa MD; [facility] These were reviewed with the patient/family. MEDICATIONS were reviewed and are as follows: No current facility-administered medications for this encounter. Current Outpatient Prescriptions Medication ??? spironolactone (ALDACTONE) 25 MG tablet ??? digoxin (LANOXIN) 250 MCG tablet ??? metoprolol (LOPRESSOR) 25 MG tablet ??? lisinopril (PRINIVIL,ZESTRIL) 10 MG tablet ??? warfarin (COUMADIN) 5 MG tablet ??? dexmethylphenidate (FOCALIN XR) 15 MG 24 hr capsule ??? Loratadine (CLARITIN PO) ALLERGIES: Motrin [ibuprofen] and Seasonal allergies IMMUNIZATIONS: UTD by report. SOCIAL HISTORY: Jude lives with mother and father. He does attend school. I have reviewed the Medications, Allergies, Past Medical and Surgical History, and Social History inthe [employer] system. Review of Systems Please see HPI for pertinent positives and negatives. All other systems reviewed and found to be negative. Physical Exam BP: 123/76 Pulse: 51 Temp: 98.2 ??F (36.8 ??C) Weight: 58.4 kg (128 lb 12 oz) SpO2: 98 % Physical Exam Appearance: Alert and appropriate, well developed, talking without difficulty nontoxic, with moist mucous membranes. HEENT: Head: [...] with no rales, rhonchi, or wheezing. Cardiovascular: Heart rate 50 with regular rhythm, normal S1 and S2, with no murmurs. Normal symmetric peripheral pulses and brisk cap refill. Abdominal: Normal bowel sounds, soft, nontender, nondistended, with no masses and no hepatosplenomegaly. Neurologic: Alert and oriented, cranial nerves II-XII grossly intact, moving all extremities equallywith normal gait. Extremities/Back: No deformity Skin: No significant rashes, ecchymoses, or lacerations. Genitourinary: Deferred Rectal: Deferred ED Course ED Course - Patient assessed immediately, mentating well, no respiratory distress, vital signs notable for HR 50. Normal oxygen saturations - History obtained and chart reviewed (info included above) - EKG obtained-- no change from previous - Labs obtained and notable for hemolyzed specimen with K 5.7 - CXR-- no infiltrate or changes from previous - Cardiology consulted and reviewed data - Recommended holter monitor and follow up with Dr. Juarez. Procedures Results for orders placed or performed during the hospital encounter of 08/31/16 (from the past 24 hour(s)) EKG 12-lead, complete Result Value Ref Range Interpretation ECG Click View Image link to view waveform and result Troponin POCT Result Value Ref Range Troponin I 0.00 0.00 - 0.10 ug/L Comprehensive metabolic panel Result Value Ref Range Sodium 139 133 - 144 mmol/L Potassium 5.7 (H) 3.4 - 5.3 mmol/L Chloride 110 98 - 110 mmol/L Carbon Dioxide 23 20 - 32 mmol/L Anion Gap 6 3 - 14 mmol/L Glucose 91 70 - 99 mg/dL Urea Nitrogen 20 7 - 21 mg/dL Creatinine 0.68 0.50 - 1.00 mg/dL GFR Estimate >90 Non GFR Calc >60 mL/min/1.7m2 GFR Estimate If Black >90 GFR Calc >60 mL/min/1.7m2 Calcium 8.9 (L) 9.1 - 10.3 mg/dL Bilirubin Total 1.0 0.2 - 1.3 mg/dL Albumin 4.4 3.4 - 5.0 g/dL Protein Total 7.8 6.8 - 8.8 g/dL Alkaline Phosphatase 182 65 - 260 U/L ALT 31 0 - 50 U/L AST 0 - 35 U/L Unsatisfactory specimen - hemolyzed NOTIFIED TONYA MEJIA RN AT 1111 ON 08.31.16 BY 1080 INR Result Value Ref Range INR 2.66 (H) 0.86 - 1.14 PTT Result Value Ref Range PTT 59 (H) 22 - 37 sec BNP Result Value Ref Range N-Terminal Pro BNP Inpatient 61 0 - 240 pg/mL CBC with platelets differential Result Value Ref Range WBC 4.7 4.0 - 11.0 10e9/L RBC Count 5.80 (H) 3.7 - 5.3 10e12/L Hemoglobin 16.9 (H) 11.7 - 15.7 g/dL Hematocrit 49.6 (H) 35.0 - 47.0 % MCV 86 77 - 100 fl MCH 29.1 26.5 - 33.0 pg MCHC 34.1 31.5 - 36.5 g/dL RDW 13.1 10.0 - 15.0 % Platelet Count 217 150 - 450 10e9/L Diff Method Automated Method % Neutrophils 63.2 % % Lymphocytes 23.3 % % Monocytes 11.0 % % Eosinophils 2.1 % % Basophils 0.4 % % Immature Granulocytes 0.0 % Nucleated RBCs 0 0 /100 Absolute Neutrophil 3.0 1.3 - 7.0 10e9/L Absolute Lymphocytes 1.1 1.0 - 5.8 10e9/L Absolute Monocytes 0.5 0.0 - 1.3 10e9/L Absolute Eosinophils 0.1 0.0 - 0.7 10e9/L Absolute Basophils 0.0 0.0 - 0.2 10e9/L Abs Immature Granulocytes 0.0 0 - 0.4 10e9/L Absolute Nucleated RBC 0.0 CRP inflammation Result Value Ref Range CRP Inflammation <2.9 0.0 - 8.0 mg/L ISTAT gases lactate eliot POCT Result Value Ref Range Ph Venous 7.35 7.32 - 7.43 pH PCO2 Venous 47 40 - 50 mm Hg PO2 Venous 30 25 - 47 mm Hg Bicarbonate Venous 26 21 - 28 mmol/L O2 Sat Venous 54 % Lactic Acid 1.2 0.7 - 2.1 mmol/L ISTAT gases lactate eliot POCT Result Value Ref Range Ph Venous 7.34 7.32 - 7.43 pH PCO2 Venous 49 40 - 50 mm Hg PO2 Venous 34 25 - 47 mm Hg Bicarbonate Venous 26 21 - 28 mmol/L O2 Sat Venous 61 % Lactic Acid 1.2 0.7 - 2.1 mmol/L XR Chest 2 Views Narrative XR CHEST 2 VW 08/31/2016 11:11 AM HISTORY: Chest pain and palpitations COMPARISON: 08/05/2014 FINDINGS: PA and lateral views of the chest. The cardiac silhouette size is stable. There are stable postsurgical findings, including Fortino and Fontan procedures. Enlarged SVC and pulmonary vessels appear similar in size to the comparison examination. There is no significant pleural effusion or pneumothorax. The bones are normal. Impression IMPRESSION: Stable postoperative chest. GENO CASTELLANOS MD Medications - No data to display Critical care time: none Assessments & Plan (with Medical Decision Making) Jude is a 16 year old boy with history of left heart hypoplasia s/p Fontan with closure of fenestration who presents at 10:28 AM with chest palpitations and shortness of breath. Work up including EKG, chest x-ray, electrolytes, BNP, troponin, and CBC were unremarkable. Differential for his palpitations includes arrhythmia given increased risk s/p Fontan or bradycardia related to metoprolol. After discussion with pediatric cardiology team, given he is well appearing without arrhythmia or hypoxemia, he will discharge to home with holter monitor for 48 hours. Plan - Discharge to home - Holter monitor X 48 hours - Follow up with Dr. Juarez after holter monitor - Return sooner or call cardiology patient care secretary if repeat palpitations, shortness of breath, lightheadedness, lethargy, chest pain, or any other concerns. I have reviewed the nursing notes. I have reviewed the findings, diagnosis, plan and need for follow up with the patient. New Prescriptions No medications on file Final diagnoses: None Patient seen and discussed with Dr. Cortes. Melony Harkins MD, PL-3 08/31/2016 [facility] This data was collected [...] note. MD Sophia Salgado Pablo Ureta, MD 09/01/16 0725 documented in this encounter Plan of Treatment Upcoming Encounters Date Type Specialty Care Team Description 07/27/2022 Ancillary Procedure Cardiology Cordell Juarez MD [address] [facility] [address] [place] [address] (Wo lucio) 07/27/2022 Office Visit Cardiology Cordell Juarez MD [address] [facility] [address] [place] [address] (Wo lucio) documented as of this encounter Procedures Procedure Name Priority Date/Time Associated Comments Diagnosis HOLTER MONITOR SET UP STAT 09/10/2016 12:15 Re sults for this 48 HOUR - PEDIATRIC PM CDT procedur e are in the results section. XR CHEST 2 VIEWS STAT 08/31/2016 11:11 Results for this AM CDT procedure are i n the results section. ISTAT GASES LACTATE Routine 08/31/2016 10:44 Resu lts for this VENOUS POCT AM CDT procedure are i n the results section. ISTAT GASES LACTATE Routine 08/31/2016 10:42 Resu lts for this VENOUS POCT AM CDT procedure are i n the results section. CBC WITH PLATELETS & STAT 08/31/2016 10:37 Res ults for this DIFFERENTIAL AM CDT procedure are i n the results section. INR STAT 08/31/2016 10:37 Results for this AM CDT procedure are i n the results section. PARTIAL THROMBOPLASTIN STAT 08/31/2016 10:37 R esults for this TIME AM CDT procedure are i n the results section. NT PROBNP INPATIENT STAT 08/31/2016 10:37 Resu lts for this AM CDT procedure are i n the results section. CRP INFLAMMATION STAT 08/31/2016 10:37 Results for this AM CDT procedure are i n the results section. COMPREHENSIVE METABOLIC STAT 08/31/2016 10:37 Results for this PANEL AM CDT procedure are i n the results section. TROPONIN POCT Routine 08/31/2016 10:34 Results fo r this AM CDT procedure are i n the results section. EKG 12-LEAD, TRACING STAT 08/31/2016 9:32 AM R esults for this ONLY CDT procedure are i n the results section. documented in this encounter Results Holter set up 48 hrs pediatric (09/10/2016 12:15 PM CDT) Impressions [place] - 09/10/2016 12:15 PM CDT HOLTER MONITOR FINAL INTERPRETATION ?? Pt with single ventricle s/p Fontan on m etoprolol XL 25 mg twice daily. The dominant rhythm during recording was an atrial rhythm, with expected circadian and physiologic variation. There was bradycardia with rare PVC's and a single PAC. There were no conduction anomalies noted . Standard ECG intervals appear grossly wi thin normal range This is a normal Holter given clinical s cenario. Electronically interpreted and signed by Codrell Juarez MD on September 10, 2016 at 9:51 PM Narrative [facility] - 09/10/2016 12:15 PM CDT [facility] [address] [place] [id number] 08/31/2016 Patient: ??Jude Cho [facility] Chart: [id number] : ??2000 Age: ??16 year old Sex: ??male Procedure: ??Holter Monitor Placed: ken saldivar see scanned document for result once interpretation is completed. Holter monitor ??placed on 08/31/2016 at 1215 pm and can be removed on 09/02/2016 at 1215pm Digital Associate Media Director performing hook-up: ??Nadira VinayBere Shaniquacasandragil HOLTER MONITOR PRELIMINARY DATA A 48 hour Holter monitor study was perfo rmed with 3 channels available for interpretation. ??The quality of tracing is acceptable with minimal baseline artifact. ??The Holter was placed 08/31/16 and was removed 09/02/16 with a total analysis time of 48 hours and 00 minutes. During the recording period, the heart r ate ranged between 34 - 103 bpm, with an average heart rate of 56 ??bpm. Arrhythmias: Total ventricular ectopic beats = 779 (V E burden = <1%) with 779 isolated ventricular ectopic beats, 0 couplets and 0 runs. Total supraventricular ectopic beats = 1 (SVE burden = <1%) with 1 isolated supraventricular ectopic beats, 0 couplets and 0 runs. There were 0 pauses greater than 2.0 sec onds. Patient Diary / Symptom Correlation: No diary was returned with the monitor. Entered and electronically signed by Shagufta Mahajan on September 07, 2016 at 9:06 AM [facility] Diagnostics - EKG Lab Melony Harkins MD CV CARDIAC SERVICES ORDERABL ES Performing Organization Address City/State/ZIP Code Phon e Number [facility] XR Chest 2 Views (08/31/2016 11:11 AM CDT) Anatomical Region Laterality Modality Chest Computed Radiography Specimen (Source) Anatomical Location Collection Method / Collectio n Time Received Time / Laterality Volume Impressions 08/31/2016 11:22 AM CDT IMPRESSION: Stable postoperative chest. GENO CASTELLANOS MD Narrative 08/31/2016 11:22 AM CDT XR CHEST 2 VW ??08/31/2016 11:11 AM ?? HISTORY: Chest pain and palpitations COMPARISON: 08/05/2014 FINDINGS: PA and lateral views of the ch est. The cardiac silhouette size is stable. There are stable postsur gical findings, including Fortino and Fontan procedures. Enlarged SV C and pulmonary vessels appear similar in size to the comparison examin ation. There is no significant pleural effusion or pneumothorax. The panchito zack are normal. Procedure Note Geno Castellanos MD - 08/31/2016Forma tting of this note might be different from the original. XR CHEST 2 VW 08/31/2016 11:11 AM HISTORY: Chest pain and palpitations COMPARISON: 08/05/2014 FINDINGS: PA and lateral views of the ch est. The cardiac silhouette size is stable. There are stable postsur gical findings, including Fortino and Fontan procedures. Enlarged SV C and pulmonary vessels appear similar in size to the comparison examin ation. There is no significant pleural effusion or pneumothorax. The panchito zack are normal. IMPRESSION: Stable postoperative chest. GENO CASTELLANOS MD Melony Harkins MD IMG DIAGNOSTIC IMAGING ORDER BHAVESH ISTAT gases lactate eliot POCT (08/31/2016 10:44 AM CDT) P athologist Signature Ph Venous 7.34 7.32 - POINT OF CARE 7.43 pH TEST, HANDHELD METER PCO2 Venous 49 40 - 50 mm POINT OF CARE Hg TEST, HANDHELD METER PO2 Venous 34 25 - 47 mm POINT OF CARE Hg TEST, HANDHELD METER Bicarbonate 26 21 - 28 POINT OF CARE Venous mmol/L TEST, HANDHELD METER O2 Sat Venous 61 % POINT OF CARE TEST, HANDHELD METER Lactic Acid 1.2 0.7 - 2.1 POINT OF CARE mmol/L TEST, HANDHELD METER Specimen Anatomical Collection Method Collection Time Receive d Time (Source) Location / / Volume Laterality 08/31/2016 10:44 08/31/2016 AM CDT 10:50 AM CDT Guille PLUMMER POCT Performing Organization Address City/State/ZIP Code Phon e Number FV POINT OF CARE TEST, HANDHELD METER POINT OF CARE TEST, HANDHELD METER ISTAT gases lactate eliot POCT (08/31/2016 10:42 AM CDT) P athologist Signature Ph Venous 7.35 7.32 - POINT OF CARE 7.43 pH TEST, HANDHELD METER PCO2 Venous 47 40 - 50 mm POINT OF CARE Hg TEST, HANDHELD METER PO2 Venous 30 25 - 47 mm POINT OF CARE Hg TEST, HANDHELD METER Bicarbonate 26 21 - 28 POINT OF CARE Venous mmol/L TEST, HANDHELD METER O2 Sat Venous 54 % POINT OF CARE TEST, HANDHELD METER Lactic Acid 1.2 0.7 - 2.1 POINT OF CARE mmol/L TEST, HANDHELD METER Specimen Anatomical Collection Method Collection Time Receive d Time (Source) Location / / Volume Laterality 08/31/2016 10:42 08/31/2016 AM CDT 10:46 AM CDT Guille Cortes MD LAB - BEAKER POCT Performing Organization Address City/[facility]/ZIP Code Phon e Number FV POINT OF CARE TEST, HANDHELD METER POINT OF CARE TEST, HANDHELD METER CRP inflammation (08/31/2016 10:37 AM CDT) Analysis Performed At Patho logist Time Signature CRP Inflammation <2.9 0.0 - 8.0 [facility] mg/L [facility] Specimen Anatomical Collection Method Collection Time Receive d Time (Source) Location / / Volume Laterality Blood specimen 08/31/2016 10:37 7 (specimen) AM CDT 10:45 AM CDT Melony Harkins MD LAB - BLOOD ORDERABLES Performing Organization Address City/[facility]/ZIP Code Phon e Number [facility] [address] [place] [address] [facility] (ABNORMAL) CBC with platelets differential (08/31/2016 10:37 AM CDT) Patholo gist Method Time Signature WBC 4.7 4.0 - [facility] 11.0 [facility] 10e9/L [facility] RBC Count 5.80 (H) 3.7 - 5.3 [facility] 10e12/L [facility] Hemoglobin 16.9 (H) 11.7 - [facility] 15.7 g/dL [facility] Hematocrit 49.6 (H) 35.0 - [facility] 47.0 % [facility] MCV 86 77 - 100 [facility] fl [facility] MCH 29.1 26.5 - [facility] 33.0 pg [facility] MCHC 34.1 31.5 - [facility] 36.5 g/dL [facility] RDW 13.1 10.0 - [facility] 15.0 % [facility] Platelet Count 217 150 - 450 [place] 10e9/L [facility] Diff Method Automated [facility] Method [facility] % Neutrophils 63.2 % [facility] % Lymphocytes 23.3 % [facility] % Monocytes 11.0 % [facility] % Eosinophils 2.1 % [facility] % Basophils 0.4 % [facility] % Immature 0.0 % [facility] Granulocytes [facility] Nucleated RBCs 0 0 /100 [facility] Absolute 3.0 1.3 - 7.0 [facility] Neutrophil 10e9/L [facility] Absolute 1.1 1.0 - 5.8 [facility] Lymphocytes 10e9/L [facility] Absolute 0.5 0.0 - 1.3 [facility] Monocytes 10e9/L [facility] Absolute 0.1 0.0 - 0.7 [facility] Eosinophils 10e9/L [facility] Absolute 0.0 0.0 - 0.2 [facility] Basophils 10e9/L [facility] Abs Immature 0.0 0 - 0.4 [facility] Granulocytes 10e9/L [facility] Absolute 0.0 [facility] Nucleated RBC [facility] Specimen Anatomical Collection Method Collection Time Receive d Time (Source) Location / / Volume Laterality Blood specimen 08/31/2016 10:37 7 (specimen) AM CDT 10:45 AM CDT Melony Harkins MD LAB - BLOOD ORDERABLES Performing Organization Address City/State/ZIP Code Phon e Number [facility] [address] [place] [address] [facility] BNP (08/31/2016 10:37 AM CDT) P athologist Signature N-Terminal Pro 61 0 - 240 [facility] BNP Inpatient pg/mL [facility] Specimen Anatomical Collection Method Collection Time Receive d Time (Source) Location / / Volume Laterality Blood specimen 08/31/2016 10:37 7 (specimen) AM CDT 10:45 AM CDT Melony Harkins MD LAB - BLOOD ORDERABLES Performing Organization Address City/[facility]/ZIP Code Phon e Number [address] [address] [facility] (ABNORMAL) PTT (08/31/2016 10:37 AM CDT) P athologist Signature PTT 59 (H) 22 - 37 sec [facility] Specimen Anatomical Collection Method Collection Time Receive d Time (Source) Location / / Volume Laterality Blood specimen 08/31/2016 10:37 7 (specimen) AM CDT 10:45 AM CDT Melony Harkins MD LAB - BLOOD ORDERABLES Performing Organization Address City/[facility]/ZIP Code Phon e Number [address] [address] [facility] (ABNORMAL) INR (08/31/2016 10:37 AM CDT) P athologist Signature INR 2.66 (H) 0.86 - 1.14 [facility] Specimen Anatomical Collection Method Collection Time Receive d Time (Source) Location / / Volume Laterality Blood specimen 08/31/2016 10:37 7 (specimen) AM CDT 10:45 AM CDT Melony Harkins MD LAB - BLOOD ORDERABLES Performing Organization Address City/[facility]/ZIP Code Phon e Number [address] [address] [facility] (ABNORMAL) Comprehensive metabolic panel (08/31/2016 10:37 AM CDT) P athologist Signature Sodium 139 133 - 144 [facility] mmol/L [facility] Potassium 5.7 (H) 3.4 - 5.3 [facility] mmol/L [facility] Comment: Specimen moderately hemolyzed, Potassium may be falsely elevated NOTIFIED TONYA MEJIA RN AT 1111 ON BY 5298 Chloride 110 98 - 110 mmol/L [facility] Carbon Dioxide 23 20 - 32 mmol/L [facility] Anion Gap 6 3 - 14 mmol/L [facility] Glucose 91 70 - 99 mg/dL [facility] Urea Nitrogen 20 7 - 21 mg/dL [facility] Creatinine 0.68 0.50 - 1.00 [facility] mg/dL [facility] GFR Estimate >90 >60 [facility] Non GFR Calc mL/min/1.7m2 [facility] GFR Estimate If Black >90 >60 [facility] GFR Calc mL/min/1.7m2 [facility] Calcium 8.9 (L) 9.1 - 10.3 [facility] mg/dL [facility] Bilirubin Total 1.0 0.2 - 1.3 mg/dL [facility] Albumin 4.4 3.4 - 5.0 g/dL [facility] Protein Total 7.8 6.8 - 8.8 g/dL [facility] Alkaline Phosphatase 182 65 - 260 U/L [facility] ALT 31 0 - 50 U/L [facility] AST Unsatisfactory specimen - hemolyzed 0 - 35 U/L [facility] NOTIFIED TONYA MEJIARN AT 1111 ON 08.31.16 BY 1991 [facility] Specimen Anatomical Collection Method Collection Time Receive d Time (Source) Location / / Volume Laterality Blood specimen 08/31/2016 10:37 7 (specimen) AM CDT 10:45 AM CDT Melony Harkins MD LAB - BLOOD ORDERABLES Performing Organization Address City/[facility]/ZIP Code Phon e Number [facility] [address] [place] [address] [facility] Troponin POCT (08/31/2016 10:34 AM CDT) P athologist Signature Troponin I 0.00 0.00 - 0.10 POINT OF CARE ug/L TEST, HANDHELD METER Specimen Anatomical Collection Method Collection Time Receive d Time (Source) Location / / Volume Laterality 08/31/2016 10:34 08/31/2016 AM CDT 10:46 AM CDT Provider Unknown LAB - ENTER/EDIT POCT Performing Organization Address City/State/ZIP Code Phon e Number [facility] POINT OF CARE TEST, HANDHELD METER POINT OF CARE TEST, HANDHELD METER EKG 12-lead, complete (08/31/2016 9:32 AM CDT) [facility] Method Time Signature Interpretation ECG Click View RADIOLOGY Image link RESULTS to view waveform and result Specimen (Source) Anatomical Collection Method Collection Time Re ceived Time Location / / Volume Laterality 08/31/2016 9:32 AM CDT Guille Cortes MD ECG ORDERABLES Performing Organization Address City/State/ZIP Code Phon e Number RADIOLOGY RESULTS documented in this encounter Visit Diagnoses Diagnosis Heart palpitations Palpitations History of corrected congenital malforma tion of heart Personal history of (corrected) congenit al malformations of heart and circulatory system documented in this encounter Active and Recently Administered Medications
--- OUTSIDE RECORDS SUMMARY | 2022-04-10 09:58 | XMS_ITS | Encounter Summary ---
:2000 Author Organization [place] Address [address] [facility] [place] [address] Care Team Providers Name Role Phone Stephen Sauceda Primary Care Provider Reason for Visit Reason Comments Medication Refill Encounter Details Date Type Department Care Team Description 03/21/[address] [facility] Cordell Juarez MD Medication Refill Explorer Pediatric [facility] [address] [place] [address] [place] [address] [place] [address] Social History Tobacco Use Types [...] Ancillary Procedure Cardiology Cordell Juarez MD [address] [facility] [place] [address] (Wo rk) 07/27/2022 Office Visit Cardiology LarryCordell MD [address] [facility] [place] [address] (Wo rk) documented as of this encounter 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
--- OUTSIDE RECORDS SUMMARY | 2022-04-10 09:58 | XMS_ITS | Encounter Summary ---
:2000 Author Organization [place] Address [address] [facility] [place] [address] Care Team Providers Name Role Phone Stephen Sauceda Primary Care Provider Reason for Visit (Routine) - Closed Specialty Diagnoses / Procedures Referred By Contact Refer red To Contact Cardiology Diagnoses coming from [facility] Cardiac Test [facility] Procedures ZIOPATCH MONITOR [address] [place], [place] [address] Phone: Fax: Referral ID Status Reason Start Date Expiration Date Visits Requ ested Visits Authorized [id number] Closed 03/13/2017 03/13/2018 1 1 Encounter Details Date Type Department Care Team Description 03/13/2017 Hospital Encounter [facility] Specialty Care Rudy Juarez MD [facility] [address] [facility] [address] [address] [place] [address] [place], [place] [phone] (Wo rk) [address] [phone] Social History Tobacco Use Types Packs/Day Years [...] this encounter Progress Notes Charles Matt - 03/13/2017 12:02 PM CDT Placed a 14 day Zio Patch Monitor. documented in this encounter Plan of Treatment Upcoming Encounters Date Type Specialty Care Team Description 07/27/2022 Ancillary Procedure Cardiology Cordell Juarez MD [address] [place] [address] (Wo rk) 07/27/2022 Office Visit Cardiology Cordell Juarez MD [address] [place] [address] (Wo rk) documented as of this encounter Procedures Procedure Name Priority Date/Time Associated Diagnosis Comme nts ZIO PATCH HOLTER Routine 03/13/2017 Tachycardia Results for this procedure are in the resu lts section. documented in this encounter Results Zio Patch Holter (03/13/2017) Narrative RADIANT - 03/13/2017 [facility] [address] [facility] [address] 03/13/2017 Patient: ??Jude Bills Chart: [id number] : ??2000 Age: ??17 year old Sex: ??male Procedure: ??ZioPatch Monitor. Race Car Driver performing hook-up: ??Charles Matt Cordell Juarez MD CV CARDIAC SERVICES ORDERABL ES Performing Organization Address City/State/[facility] Code Phon e Number RADIANT documented in this encounter Visit Diagnoses Diagnosis Tachycardia Tachycardia, unspecified documented in this encounter Care Teams Telephone Clerk Relationship Specialty Start Date End Date Stephen Sauceda PCP - General Pediatrics 03/06/17 06/24/19 [facility] [address] [place] [address] documented as of this encounter
--- OUTSIDE RECORDS SUMMARY | 2022-04-10 09:58 | XMS_ITS | Encounter Summary ---
:2000 Author Organization [place] [address] [place] [address] Care Team Providers Name Role Phone KomalStephen white Rudy Primary Care Provider Reason for Visit Reason Onset Date Comments Refill Request 03/27/2017 Encounter Details Date Type Department Care Team Description 03/27/2017 Refill [facility] Pediatric Larry Cordell MD Refill Request Specialty Clinic [address] [facility] [place] [address] [facility] [address] [phone] Social History Tobacco Use Types Packs/Day Years Used Date Smoking Tobacco: Never Comments: none at home Alcohol Use Standard Drinks/Week Comments No 0 (1 standard drink = 0.6 oz pure alcoho l) Sex Assigned at Date Recorded Male 03/09/2019 1:21 PM CDT documented as of this encounter Miscellaneous Notes Telephone Encounter - Delicia Izaugirre RN - 03/27/2017 3:38 PM CDT Spoke with mom and stated there were no refills left at pharmacy. Called [facility] in [place] and both prescriptions were not received by the pharmacy. New prescription sent. 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
--- OUTSIDE RECORDS SUMMARY | 2022-04-10 09:58 | XMS_ITS | Encounter Summary ---
:2000 Author Organization [place] Address [address] [place] [address] Care Team Providers Name Role Phone Unavailable Primary Care Provider Unavailable Reason for Visit Reason Comments RECHECK follow up from ED visit for tachycardia Encounter Details Date Type Department Care Team Description 09/06/[address] [facility] Cordell Juarez, Hypo plastic left heart syndrome (Primary Dx); [facility] Pediatric MD Tachycardia with heart rate 100-120 beat s per minute [facility] [address] [facility] [address] [place] [id number] [place] [address] [place] [address] Social History Tobacco Use Types Packs/Day Years Used Date Smoking Tobacco: Never Comments: none at home Alcohol Use Standard Drinks/Week Comments No 0 (1 standard drink = 0.6 oz pure alcoho l) Sex Assigned at Date Recorded Male 03/09/2019 1:21 PM CDT documented as of this encounter Last Filed Vital Signs Vital Sign Reading Time Taken Comments Blood Pressure 119/62 09/06/2016 3:00 PM CDT Pulse 56 09/06/2016 3:00 PM CDT Temperature 36.9 ??C (98.5 ??F) 09/06/2016 3:00 PM CDT Respiratory Rate 30 09/06/2016 3:00 PM CDT Oxygen Saturation 95% 09/06/2016 3:00 PM CDT Inhaled Oxygen Concentration - - Weight 59.1 kg (130 lb 4.7 oz) 09/06/2016 3:00 PM CDT Height 161.5 cm (5' 3.58) 09/06/2016 3:00 PM CDT Body Mass Index 22.66 09/06/2016 3:00 PM CDT Body Mass Index Percentile 70.75 % 09/06/2016 3:00 PM CD T Growth Chart: [facility] (Boys, 2-20 Years) documented in this encounter Patient Instructions Patient InstructionsCourt Bell LPN - 09/06/2016 3:00 PM CDT [facility] [address] [place] [phone] Cardiology Clinic Cardiology Office RN Clinical Pharmacy TechnicianKirsten (Bre) Pediatric Call Center/Scheduling After Hours and Emergency Contact Number * Ask for the pediatrician/medical doctor train station server Prescription Renewals The pharmacy must fax requests to * Please allow 3-4 days for prescriptions to be authorized Please follow up with Dr. Figueroa-we will call with date and time documented in this encounter Progress Notes Cordell Juarez MD - 09/06/2016 3:00 PM CDT Pediatric Cardiology Visit Patient: Jude Bills Date of : 2000 Age: 16 years 7 months Date of Visit: Sep 06, 2016 PCP: Ana Li [place] Dear Dr. Winchester, I had the pleasure of seeing your patient, Jude Bills, in the Pediatric Cardiology Clinic at the [facility] on Sep 06, 2016. 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 He underwent a central shunt, followed by a Fortino procedure and completion of a Fontan procedure at the [facility] in dairy equipment [place]. He had catheter closure of his Fontan fenestration at the [facility] in January 2007. I last saw Jude in clinic in May of 2016 for chest pain. Evaluation at that time included lab work and a Holter which were reassuring and he had been feeling well until about one week ago when hehad an episode of palpitations at school acoompanied by transient desaturations. He was transported by meter reader to the ER and evaluated in the ER with stable HR and saturations. Blood work was reassuring and his Holter monitor is not yet available at the time of this visit. He has been feeling better since that visit but continues to have frequent palpitations accompained by slight dizziness and chest discomfort. No LOC, SOB, exercise intolerance. NO fevers, chills, other sympots. VIral symptoms have been going around the household. Jude had an EP study done on [...] continued. He did have an episode of rapidheart rate (into the mid 200's ) that was short and self terminated on a Holter in December 2015. He hadnon in May 2016. He reports being compliant [...] no longer playing basketball. 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 He continues on his coumadin, and gets INR's checked in [place] with a goal range of 2-2.5. Prescription Medications as of 09/16/2016 spironolactone (ALDACTONE) 25 MG tablet Take 1 tablet (25 mg) by mouth daily metoprolol (LOPRESSOR) 25 MG tablet Take 1.5 tablets (37.5 mg) by mouth 2 times daily furosemide (LASIX) 20 MG tablet Take 0.5 tablets (10 mg) by mouth daily digoxin (LANOXIN) 250 MCG tablet Take 1 tablet (250 mcg) by mouth daily lisinopril (PRINIVIL,ZESTRIL) 10 MG tablet Take 1 tablet (10 mg) by mouth daily warfarin (COUMADIN) 5 MG tablet Take 1 tablet (5mg) every day except Saturday and Saturday. Take 1/2 tablet (2.5 mg) every Saturday and Saturday dexmethylphenidate (FOCALIN XR) 15 MG 24 hr capsule Take 15 mg by mouth daily Reported on 09/14/2016 Loratadine (CLARITIN PO) Take 10 mg by mouth daily Reported on 09/14/2016 No longer takes omeprazole FH/SH: Jude and his family live in [place]. His mother is a nurse at [employer]. His height is 5' 3.58 (161.5 cm) and weight is 130 lb 4.7 oz (59.1 kg). His oral temperature is 98.5 ??F (36.9 ??C). His blood pressure is 119/62 and his pulse is 56. His respiration is 30 and oxygen saturation is 95%. His body mass index is 22.66 kg/(m^2). His body surface area is 1.63 meters squared. Growth percentiles are 35th% for weight and 5% for height. In general, he is a very well-appearingyoung man with no central or peripheral cyanosis. [...] a grade 2/6 systolic ejection murmur at theleft upper sternal border, and no rubs, gallops or diastolic murmurs. Abdominal examination is benign with no hepatosplenomegaly or masses. Radial and femoral pulses are normal and extremities are warmand well perfused with no edema or clubbing and good capillary refill. He is alert and oriented and moves all extremities equally with normal tone. A 12-lead ECG was obtained today which revealed sinus bradycardia at a rate of 47 beats per minute, left axis deviation, RVH with strain pattern and interventricular conduction delay, and flattened/ inverted T waves in lateral leads. Overall, this is unchanged from prior ECG's. A 48-hour Holter was performed from 01/19/16 to 01/21/16 demonstrated an average heart rate of 52 bpm (range 34 to 92 bpm), 2 isolated ventricular ectopic beats, and 3 supraventricular ectopic beats. Therewas 1 pause lasting 2 seconds. The dominant rhythm was sinus with abnormal circadian and physiologicvariation. Standard ECG intervals appeared grossly within normal [...] twice daily Average HR was 56 bpm ([id number]) 779 PVC's (< 1% = rare), no [...] L/min/m2. Impression and Plan: Jude is a 16 yo male s/p fontan - fenestration closed with amplatzer. He has been having episodes ofpalpitations with a prolonged episode possible associated with desaturation one week ago. He was stable on arrival to ER with no arrhythmias documented on follow up Holter. Lab work and Echo are stablewith no evidence of decreased cardiac function or heart failure on testing or clinical examination. I have recommended a trial of increased metoprolol to 37.5 mg twice daily, with follow up with EP in the next 1-2 weeks. We will continue his diuretics where they are for now and reevaluate medications afer his EP visit. Recommendations: 1. Increase metoprolol XL to 37.5 mg twice daily 2. Continue LAsix 10 mg daily and Aldactone 12.5 mg daily 3. Follow up with Dr. Figueroa after completion of Ziopatch 4. Consider longer term monitoring with ziopatch if symptoms persist. Sincerely, Cordell Juarez M.D. Air Conditioning Supervisor of Pediatrics Division of Pediatric Cardiology [facility] documented in this encounter Nursing Notes Court Bell LPN - 09/06/2016 3:00 PM CDT Chief Complaint Patient presents with ??? RECHECK follow up from ED visit for tachycardia BP 119/62 (BP Location: Right arm) Pulse 56 Temp 98.5 ??F (36.9 ??C) (Oral) Resp 30 Ht 5' 3.58 (161.5 cm) Wt 130 lb 4.7 oz (59.1 kg) SpO2 95% BMI 22.66 kg/m2 Court Bell LPN documented in this encounter Plan of Treatment Upcoming Encounters Date Type Specialty Care Team Description 07/27/2022 Ancillary Procedure Cardiology Cordell Juarez MD [address] [place], [place] [phone] (Wo rk) 07/27/2022 Office Visit Cardiology Cordell Juarez MD [address] [place], [place] [phone] (Wo rk) documented as of this encounter Procedures Procedure Name Priority Date/Time Associated Diagnosis Comme nts EKG 12 LEAD - Routine 09/06/2016 3:43 PM Hypoplastic left Resu lts for this PEDIATRIC CDT heart syndrome procedure are in Tachycardia with the results heart rate 100-120 section. beats per minute documented in this encounter Results EKG 12 lead - pediatric (09/06/2016 3:43 PM CDT) [facility] Method Time Signature Interpretation ECG Click View RADIOLOGY Image link RESULTS to view waveform and result Specimen (Source) Anatomical Collection Method Collection Time Re ceived Time Location / / Volume Laterality 09/06/2016 3:43 PM CDT Cordell Juarez MD ECG ORDERABLES Performing Organization Address City/State/ZIP Code Phon e Number RADIOLOGY RESULTS Echo Pediatric Congenital (09/06/2016 3:41 PM CDT) Anatomical Region Laterality Modality Echocardiography Specimen (Source) Anatomical Collection Method Collection Time Re ceived Time Location / / Volume Laterality 09/06/2016 3:19 PM CDT Narrative 09/07/2016 12:26 AM CDT [id number]^JAVIER^CORDELL^RYAN ?Study ID: [id number] ?[facility] ?[facility] ?[address] ?[place] [address] ? Pediatric Echocardiogram __ Name: JUDE BILLS L Study Date: 09/06/2016 03:19 PM ?Patient Location: [facility] ?Age: 16 yrs : 2000 ?BP: 119/62 mmHg Gender: Male ? HR: 50 Patient Class: Outpatient ?Height: 38.5 in Ordering Provider: COREDLL JUAREZ ? Weight: 130 lb Referring Provider: [...] Procedure Note Kofi Swan MD - 09/07 [id number]^JAVIER^CORDELL^RYAN Study ID: [id number] [place] [address] Pediatric Echocardiogram __ Name: RENÉ JUDE Marquis Study Date: 09/06/2016 03:19 PM Patient Location: [facility] Age: 16 yrs : 2000 BP: 119/62 mmHg Gender: Male HR: 50 Patient Class: Outpatient Height: 38.5 i n Ordering Provider: CORDELL JUAREZ Weight: 1 30 lb Referring Provider: CORDELL JUAREZ A: 1.1 m2 Performed By: Delicia Hernandez [...] Upper mild (1-2+) tricuspid valve insufficiency. The paayl l valve has normal structure, size, insertion [...] left heart syndrome - Primar y Tachycardia with heart rate 100-120 beat s per minute Hypoplastic left heart syndrome Tachycardia with heart rate 100-120 beat s per minute documented in this encounter
--- OUTSIDE RECORDS SUMMARY | 2022-04-10 09:58 | XMS_ITS | Encounter Summary ---
:2000 Author Organization [place] Address Critical access hospital0 [facility] [place] [address] Care Team Providers Name Role Phone Stephen Sauceda Primary Care Provider Reason for Visit Reason Comments Chest Pain Encounter Details Date Type Department Care Team Description 03/06/2017 Emergency [facility] Arelis Collier Che st pain, unspecified type; [facility] Emergency MD Hypoplastic left heart syndrome Department Critical access hospital0 [facility] [address] [place] [address] [phone] (Wo rk) Social History Tobacco Use Types Packs/Day Years Used Date Smoking Tobacco: Never Comments: none at home Alcohol Use Standard Drinks/Week Comments No 0 (1 standard drink = 0.6 oz pure alcoho l) Sex Assigned at Date Recorded Male 03/09/2019 1:21 PM CDT documented as of this encounter Last Filed Vital Signs Vital Sign Reading Time Taken Comments Blood Pressure 107/58 03/06/2017 5:50 PM CDT Pulse 51 03/06/2017 4:05 PM CDT Temperature 36.6 ??C (97.9 ??F) 03/06/2017 5:50 PM CDT Respiratory Rate 17 03/06/2017 5:50 PM CDT Oxygen Saturation 96% 03/06/2017 5:50 PM CDT Inhaled Oxygen Concentration - - Weight 58.2 kg (128 lb 4.9 oz) 03/06/2017 4:05 PM CDT Height - - Body Mass Index 22.31 09/14/2016 11:22 AM CDT Body Mass Index Percentile 63.31 % 03/06/2017 4:05 PM CD T Growth Chart: [facility] (Boys, 2-20 Years) documented in this encounter Discharge Instructions Discharge InstructionsGerald Escamilla MD - 03/06/2017 5:41 PM CDT You were seen today for chest pain. The EKG was unchanged and the chest xray did not show a pneumonia Cardiology would like you to have a heart monitor called a Wallaceo patch. They would like you to follow up with them in clinic in a week to get this. documented in this encounter Medications at Time [...] Hypoplastic left heart 2 times daily syndrome Montelukast Sodium 0 2018 (SINGULAIR PO) spironolactone (ALDACTONE) Take 1 tablet (25 45 [...] encounter ED Notes Shona Perry RN - 03/06/2017 4:10 PM CDT Pt reports having 2 episodes of chest pain today. First episode of chest was at 1pm while in class. Episode lasted 20 min. Second episode was in route to ED and lasted 5-10 minutes. Pt is currently denying pain in triage. Arelis Collier MD - 03/06/2017 4:03 PM CDT History Chief Complaint Patient presents with ??? Chest Pain HPI History obtained from family, mother and patient Jude is a 17 year old male who presents at 4:12 PM with chest pain. He has a PMH significant for hypoplastic left heart s/p Fontan. He comes in with sharp/stabbing, 5/10, L sided chest pain which radiates to the back and is not associated with any symptoms. He had an episode of this pain which lasted about 20 minutes while at school, followed by a 10 minute episode while in the car. He had a similar episode which lasted 3 hours last week while at school, and afterward was noted to be diaphoretic by his mother. Prior to that, he was worked up for identical symptoms in august of this year. He denies any other symptoms including recent fever, illness, N/V, cough, weakness, muscle cramping, edema. Denies palpitations occurring during the chest pain. He is currently pain free. PMHx: Past Medical History: Diagnosis Date ??? 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 Congenital anomalies of spleen Polysplenia ??? Esophageal reflux ??? 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 [...] this encounter. Current Outpatient Prescriptions Medication ??? Montelukast Sodium (SINGULAIR PO) ??? spironolactone (ALDACTONE) 25 MG tablet ??? metoprolol (LOPRESSOR) 25 MG tablet ??? furosemide (LASIX) 20 MG tablet ??? digoxin (LANOXIN) 250 MCG tablet ??? lisinopril (PRINIVIL,ZESTRIL) 10 MG tablet ??? warfarin (COUMADIN) 5 MG tablet ??? dexmethylphenidate (FOCALIN XR) 15 MG 24 hr capsule ALLERGIES: Motrin [ibuprofen] and Seasonal allergies IMMUNIZATIONS: UTD by report. SOCIAL HISTORY: Jude lives with his mother. He does attend school. I have reviewed the Medications, Allergies, Past Medical and Surgical History, and Social History inthe Epic system. Review of Systems Please see HPI for pertinent positives and negatives. All other systems reviewed and found to be negative. Physical Exam BP: 117/69 Pulse: 51 Heart Rate: 52 Temp: 97.4 ??F (36.3 ??C) Resp: 20 Weight: 58.2 kg (128 lb 4.9 oz) SpO2: 98 % Physical Exam Appearance: [...] with no rales, rhonchi, or wheezing. Cardiovascular: Bradycardic, continuous murmur noted, S1 and S2 present. Good peripheral pulses Abdominal: Normal bowel sounds, soft, nontender, nondistended, [...] or performed during the hospital encounter of 03/06/17 (from the past 24 hour(s)) EKG 12 lead - pediatric Result Value Ref Range Interpretation ECG Click View Image link to view waveform and result XR Chest 2 Views Narrative HISTORY: Chest pain, prior Fontan COMPARISON: 08/31/2016. FINDINGS: 2 views of the chest at 1642 hours. Heart and pulmonary vasculature appear stable and within normal limits. Calcified conduit is present along the right heart border, unchanged. There is no acute pulmonary opacity, pneumothorax, or pleural effusion. Included bones and upper abdomen are unremarkable. Sternal wires are present, the most inferior sternal wire is fractured as seen previously. Impression IMPRESSION: Stable heart size. No focal pulmonary opacity. DEMETRIO LIN MD Medications - No data to display Old chart from [facility] reviewed, supported history as above. Critical care time: none Assessments & Plan (with Medical Decision Making) Chest pain: W/ hx of hypoplastic L heart. Differential wide and includes ACS, heart failure, thrombosis, infection. Patient overall very well appearing, low concern for more serious acute etiology at this time. EKG unchanged from previous. CXR without PNA. Discussed with engraver tire mold, plan for outpatient follow up with zeopatch, to which patient and mother are amenable Plan: - EKG, CXR - Zeopatch outpatient I have reviewed the nursing notes. I have reviewed the findings, diagnosis, plan and need for follow up with the patient. New Prescriptions No medications on file Final diagnoses: Chest pain, unspecified type 03/06/2017 [facility] EMERGENCY [facility]PART[facility] Patient data was collected by the resident. Patient was seen and evaluated by me. I repeated the history and physical exam of the patient. I have discussed with the resident the diagnosis, management options, and plan as documented in the Resident Note. The norton portions of the note including the entire assessment and plan reflect my documentation. Arelis Collier MD Pediatric Emergency Medicine Attending Physician Arelis Collier MD 03/06/174 documented in this encounter Plan of Treatment Upcoming Encounters Date Type Specialty Care Team Description 07/27/2022 Ancillary Procedure Cardiology Cordell Juarez MD [address] [facility] [place] [address] (Wo rk) 07/27/2022 Office Visit Cardiology Cordell Juarez MD [address] [facility] [address] [place] [address] (Wo rk) documented as of this encounter Procedures Procedure Name Priority Date/Time Associated Diagnosis Comme nts XR CHEST 2 VIEWS STAT 03/06/2017 4:27 PM Resul ts for this CDT procedure are i n the results section. EKG 12 LEAD - STAT 03/06/2017 3:47 PM Results for this PEDIATRIC CDT procedure are i n the results section. documented in this encounter Results XR Chest 2 Views (03/06/2017 4:27 PM CDT) Anatomical Region Laterality Modality Chest Radio Fluoroscopy Specimen (Source) Anatomical Location Collection Method / Collectio n Time Received Time / Laterality Volume Impressions 03/06/2017 4:31 PM CDT IMPRESSION: Stable heart size. No focal pulmonary opacity. DEMETRIO LIN MD Narrative 03/06/2017 4:31 PM CDT HISTORY: Chest pain, prior Fontan COMPARISON: 08/31/2016. FINDINGS: 2 views of the chest at 1642 h ours. Heart and pulmonary vasculature appear stable and within nor mal limits. Calcified conduit is present along the right heart border, unchanged. There is no acute pulmonary opacity, pneumothorax, or pleu ral effusion. Included bones and upper abdomen are unremarkable. Ster nal wires are present, the most inferior sternal wire is fractured as seen previously. Procedure Note Demetrio Lin MD - 03/06/2017Formattin g of this note might be different from the original. HISTORY: Chest pain, prior Fontan COMPARISON: 08/31/2016. FINDINGS: 2 views of the chest at 1642 h ours. Heart and pulmonary vasculature appear stable and within nor mal limits. Calcified conduit is present along the right heart border, unchanged. There is no acute pulmonary opacity, pneumothorax, or pleu ral effusion. Included bones and upper abdomen are unremarkable. Ster nal wires are present, the most inferior sternal wire is fractured as seen previously. IMPRESSION: Stable heart size. No focal pulmonary opacity. DEMETRIO LIN MD Arelis Collier MD IMG DIAGNOSTIC IMAGING ORDER BHAVESH EKG 12 lead - pediatric (03/06/2017 3:47 PM CDT) [facility] gist Method Time Signature Interpretation ECG Click View RADIOLOGY Image link RESULTS to view waveform and result Specimen (Source) Anatomical Collection Method Collection Time Re ceived Time Location / / Volume Laterality 03/06/2017 3:47 PM CDT Arelis Collier MD ECG ORDERABLES Performing Organization Address City/State/ZIP Code Phon e Number RADIOLOGY RESULTS documented in this encounter Visit Diagnoses Diagnosis Chest pain, unspecified type Hypoplastic left heart syndrome documented in this encounter Care Teams Geospatial Imagery Intelligence Analyst Relationship Specialty Start Date End Date Stephen Sauceda PCP - General Pediatrics 03/06/17 06/24/19 [facility] [address] [place], [place] [id number] documented as of this encounter
--- OUTSIDE RECORDS SUMMARY | 2022-04-10 09:58 | XMS_ITS | Encounter Summary ---
:2000 Author Organization [place] Address [address] [place] [address]. [place] [address] Care Team Providers Name Role Phone Unavailable Primary Care Provider Unavailable Reason for Visit Reason Onset Date Comments Refill Request 08/01/2016 Encounter Details Date Type Department Care Team Description 08/01/2016 Refill [facility] Cordell Juarez MD Refill Request Pediatric Specialty Clinic [address] [place] [address] [address] [facility] [phone] Social History Tobacco Use Types Packs/Day [...] Ancillary Procedure Cardiology Cordell Juarez MD [address] [place] [phone] (Wo rk) 07/27/2022 Office Visit Cardiology Larry, Cordell skelton MD [address] [place] [address] (Wo rk) documented as of this encounter 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
--- OUTSIDE RECORDS SUMMARY | 2022-04-10 09:58 | XMS_ITS | Encounter Summary ---
:2000 Author Organization [place] Address [address] [place] [address] Care Team Providers Name Role Phone Stephen Sauceda Primary Care Provider Reason for Visit Reason Comments Medication Refill Encounter Details Date Type Department Care Team Description 03/23/[address] [facility] Cordell Juarez MD Medication Refill [facility] [address] [place] [address] [place] [address] [place] [address] Social History Tobacco Use Types [...] Ancillary Procedure Cardiology Cordell Juarez MD [address] [facility] [place] [address] (Wo rk) 07/27/2022 Office Visit Cardiology LarryCordell MD [address] [place] [facility] [place] [address] (Wo rk) documented as of this encounter 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 Care Teams Freight Brake Operator Relationship Specialty Start Date End Date Stephen Sauceda PCP - General Pediatrics 03/06/17 06/24/19 [facility] [address] [place] [address] documented as of this encounter
--- OUTSIDE RECORDS SUMMARY | 2022-04-10 09:58 | XMS_ITS | Encounter Summary ---
:2000 Author Organization [place] Address [facility] [place] [address] Care Team Providers Name Role Phone Stephne Sauceda Primary Care Provider Reason for Visit Reason Comments Medication Refill Encounter Details Date Type Department Care Team Description 05/28/2017 Refill [facility] Cordell Juarez MD Medication Refill Explorer Pediatric [facility] [address] [place] [address] [place] [address] [place] [address] Social History Tobacco Use Types [...] Ancillary Procedure Cardiology Cordell Juarez MD [address] [facility] [place] [address] (Wo rk) 07/27/2022 Office Visit Cardiology LarryCordell MD [address] [facility] [place] [address] (Wo rk) documented as of this encounter 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 Care Teams Repair Clerk Relationship Specialty Start Date End Date Stephen Sauceda PCP - General Pediatrics 03/06/17 06/24/19 [facility] [address] [place] [address] documented as of this encounter
--- OUTSIDE RECORDS SUMMARY | 2022-04-10 09:58 | XMS_ITS | Encounter Summary ---
:2000 Author Organization [place] Address [address] [facility] [address] Care Team Providers Name Role Phone Unavailable Primary Care Provider Unavailable Encounter Details Date Type Department Care Team Description 05/23/[address] [facility] LarryCordell MD [facility] [address] [facility] [address] [place] [address] [phone] Social History Tobacco Use Types Packs/Day Years [...] daily syndrome spironolactone (ALDACTONE) Take 0.5 tablets 30 tablet 3 01/201608/01/2016 25 MG tabletIndications: (12.5 mg) by mouth [...] Ancillary Procedure Cardiology Cordell Juarez MD [address] [facility] [place] [address] (Arleen valdes) 07/27/2022 Office Visit Cardiology Cordell Juarez MD [address] [place] [address] (Arleen valdes) documented as of this encounter Visit Diagnoses Not on filedocumented in this encounter
--- OUTSIDE RECORDS SUMMARY | 2022-04-10 09:58 | XMS_ITS | Encounter Summary ---
:2000 Author Organization [place] Address [address] [facility] [place] [address] Care Team Providers Name Role Phone Stephen Sauceda Primary Care Provider Reason for Visit Reason Comments Chest Pain Encounter Details Date Type Department Care Team Description 06/21/2017 Emergency [facility] Delfin Agrawal chest pain; Emergency Department MD Bernard Atrial arrhythmia 2450 [place] [address] Social History Tobacco Use Types Packs/Day Years Used Date Smoking Tobacco: Never Comments: none at home Alcohol Use Standard Drinks/Week Comments No 0 (1 standard drink = 0.6 oz pure alcoho l) Sex Assigned at Date Recorded Male 03/09/2019 1:21 PM CDT documented as of this encounter Last Filed Vital Signs Vital Sign Reading Time Taken Comments Blood Pressure 122/66 06/21/2017 2:45 PM DEPOSIT CLERK Pulse 61 06/21/2017 1:25 PM DEPOSIT CLERK Temperature 36 ??C (96.8 ??F) 06/21/2017 1:25 PM DEPOSIT CLERK Respiratory Rate 25 06/21/2017 2:45 PM DEPOSIT CLERK Oxygen Saturation 97% 06/21/2017 2:45 PM DEPOSIT CLERK Inhaled Oxygen Concentration - - Weight 61.1 kg (134 lb 11.2 oz) 06/21/2017 1:25 PM DEPOSIT CLERK Height - - Body Mass Index 23.08 05/29/2017 10:04 AM DEPOSIT CLERK Body Mass Index Percentile 69.42 % 06/21/2017 1:25 PM CS T Growth Chart: [facility] (Boys, 2-20 Years) documented in this encounter Medications at Time of Discharge Medication Sig Dispensed Refills Start Date End Date aspirin (ASPIRIN 81) 81 Take 1 tablet (81 90 tablet 3 05/2908/14/2017 MG chewable mg) by mouth daily tabletIndications: Tachycardia digoxin (LANOXIN) 250 MCG Take 1 tablet (250 30 tablet 11 11/30/2017 tabletIndications: SVT mcg) by mouth daily (supraventricular tachycardia) (H) furosemide (LASIX) 20 MG Take 0.5 tablets (10 45 tablet 3 1 07/30/2016 06/09/2018 tabletIndications: mg) by mouth daily Hypoplastic left heart syndrome lisinopril Take 1 tablet (10 90 tablet 3 03/12/2017 018 (PRINIVIL/ZESTRIL) 10 MG mg) by mouth daily tabletIndications: Hypoplastic left heart syndrome metoprolol (TOPROL-XL) 25 Take 1 tablet (25 90 tablet 3 06/09/2018 MG 24 hr mg) by mouth daily tabletIndications: Tachycardia Montelukast Sodium 0 2018 (SINGULAIR PO) spironolactone Take 1 tablet (25 30 tablet 2 03/27/2017 (ALDACTONE) 25 MG mg) by mouth daily tabletIndications: Hypoplastic left heart syndrome spironolactone Take 1 tablet by 30 tablet 2 03/22/201709/15 (ALDACTONE) 25 MG mouth daily. tabletIndications: Hypoplastic left heart syndrome warfarin (COUMADIN) 5 MG Take 1 tablet (5mg) 30 tablet 0 08/30/2018 tabletIndications: every day except Hypoplastic left heart Saturday and syndrome Saturday. Take 1/2 tablet (2.5 mg) every Saturday and Saturday documented as of this encounter Consult Notes Akash Graves MD - 06/21/2017 2:57 PM CST Images from the original note were not included. 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 He presents to the emergency room today with chest pain for 90 minutes at school. Denies dizziness syncope respiratory distress or palpitations. Per discussion with primary casino change attendant there has been concern for atrial arrhythmias.I have been asked to consult on him by the pediatric ED team including Dr Chung. An EKG was done at admission to the emergency room which showed normal sinus rhythm with a long OR interval and no evidence of atrial arrhythmias. Troponin and B-type natriuretic peptide were within normal limits for his physiology. His chest pain had stopped prior to the arrival to the emergency room. He remains on metoprolol XL and digoxin for his atrial arrhythmias. Recommendations: 1. We will get basic metabolic panel and digoxin level and check platelet function for aspirin efficacy. 2. It is reassuring to see a normal EKG and troponin. 3. We will place a zio patch heart rhythm monitor on him for a week. 4. If metabolic panel is normal will send him home with outpatient follow-up with primary casino change attendant. 5. I discussed his care with the primary casino change attendant Dr. juarez and histotechnologist Dr. Osiris Kathleen MD, [facility] professor of pathology, Pediatric interventional cardiology Director, Pediatric cardiac catheterisation [facility]. Pager: [phone] [email or web address] PMH: Past Medical History: Diagnosis Date ??? 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 Congenital anomalies of spleen Polysplenia ??? Esophageal reflux ??? 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 [...] Graves MD; Location: [facility] OR Family History: Family History Problem Relation Age of Onset ??? Adopted: Yes ??? Unknown/Adopted Other child adopted from [place] at 10mo of age ??? Unknown/Adopted Other [...] ??? Not on file Social History Narrative Review of Systems: Review of systems per HPI, all other systems reviewed and negative x 12. Medications: ??? sodium chloride (PF) 3 mL Intracatheter Q8H ??? lidocaine sodium chloride (PF) Physical Exam: Vital Ranges Hemodynamics Temp: [96.8 ??F (36 ??C)] 96.8 ??F (36 ??C) Pulse: [61] 61 Heart Rate: [64] 64 Resp: [16-18] 18 BP: (113-127)/(57-65) 113/65 SpO2: [96 %-97 %] 97 % BP - Mean: [80] 80 Vitals: 06/21/17 1325 Weight: 61.1 kg (134 lb 11.2 oz) Weight change: General - comfortable In bed, NAD, comfortable HEENT - NCAT, MMM Cardiac - +S1, S2, RRR, grade 2/6 ejection systolic murmur Respiratory - CTAB/L, No W/R/R Abdominal - Soft, NTND, +BS, Liver palpable at 2 cm below the right costal margin Ext / Skin - No C/C/E, Good CR Neuro - Moves all extremities Labs No lab results found in last 7 days. No lab results found in last 7 days. No lab results found in last 7 days. No lab results found in last 7 days. Invalid input(s): XA Recent Labs Lab 06/21/17 1342 CRP <2.9 No lab results found in last 7 days. ABGNo results for input(s): PH, PCO2, PO2, HCO3 in the last 168 hours. VBGNo results for input(s): PHV, PCO2V, PO2V, HCO3V in the last 168 hours. SIT CLERK documented in this encounter ED Notes Krystal Wolfe RN - 06/21/2017 1:26 PM CST C/o intermittent chest pain x months. Today pt has had 1 hour of chest pain that is constant. GCS 15 SIT CLERK Delfin Agrawal MD - 06/21/2017 1:19 PM CST History Chief Complaint Patient presents with ??? 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 Patient reports thatwhile sitting in school this afternoon he had sudden onset of substernal left-sided chest pain. Patient describes it as a sharp stinging sensation. It does not radiate into his back neck or jaw. Patient denies any associated symptoms of diaphoresis, nausea, vomiting, dizziness or shortness of breath. Patient reports his pain lasted for approximately 1 hour. He notes that his pain was on a scale of 1-10 5 out of 10. Did not take anything for his pain at home. Shortly prior to evaluation patient reports his pain spontaneously subsided. Patient has otherwise been feeling well over the past couple dayswithout any significant fever, chills, headache, fatigue, swelling of the lower extremities, abdominal pain or any dyspnea on exertion. 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 Patient reports that hehas been compliant with his medications. Denies any illicit drug use. No other further concerns fromfamily at this time. Patient is currently just on aspirin and is no longer taking Coumadin. PMHx: Past Medical History: Diagnosis Date ??? 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 Congenital anomalies of spleen Polysplenia ??? Esophageal reflux ??? 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 [...] ??? sodium chloride (PF) 0.9% PF flush 1-5 mL ??? sodium chloride (PF) 0.9% PF flush 3 mL ??? lidocaine 1 % Current Outpatient Prescriptions Medication ??? sildenafil (REVATIO) 20 MG tablet ??? furosemide (LASIX) 20 MG tablet ??? metoprolol (TOPROL-XL) 25 MG 24 hr tablet ??? aspirin (ASPIRIN 81) 81 MG chewable tablet ??? [DISCONTINUED] sildenafil (REVATIO) 20 MG tablet ??? spironolactone (ALDACTONE) 25 MG tablet ??? spironolactone (ALDACTONE) 25 MG tablet ??? lisinopril (PRINIVIL/ZESTRIL) 10 MG tablet ??? digoxin (LANOXIN) 250 MCG tablet ??? Montelukast Sodium (SINGULAIR PO) ??? warfarin (COUMADIN) 5 MG tablet ALLERGIES: Motrin [ibuprofen] and Seasonal allergies IMMUNIZATIONS: Up to date by report. SOCIAL HISTORY: Jude lives with Mother and father. He does attend high school. I have reviewed the Medications, Allergies, Past Medical and Surgical History, and Social History inthe Epic system. Review of Systems Please see HPI for pertinent positives and negatives. All other systems reviewed and found to be negative. Physical Exam BP: 127/57 Pulse: 61 Heart Rate: 64 Temp: 96.8 ??F (36 ??C) Resp: 16 Weight: 61.1 kg (134 lb 11.2 oz) SpO2: 96 % Physical Exam Appearance: [...] Skin: No significant rashes, ecchymoses, or lacerations. ED Course ED Course Procedures Results for orders placed or performed during the hospital encounter of 06/21/17 (from the past 24 hour(s)) EKG 12 lead - pediatric Result Value Ref Range Interpretation ECG Click View Image link to view waveform and result Platelet Function ASA Result Value Ref Range Platelet Function ASA Canceled, Test credited ARU Digoxin level Result Value Ref Range Digoxin Level 0.7 0.5 - 2.0 ug/L CRP inflammation Result Value Ref Range CRP Inflammation <2.9 0.0 - 8.0 mg/L Troponin I Result Value Ref Range Troponin I ES 0.045 0.000 - 0.045 ug/L Nt probnp inpatient Result Value Ref Range N-Terminal Pro BNP Inpatient 395 (H) 0 - 240 pg/mL Troponin POCT Result Value Ref Range Troponin I 0.03 0.00 - 0.10 ug/L EKG Interpretation: Interpreted by Lino Hager Time reviewed:1357 Symptoms at time of EKG: None Rhythm: Normal sinus Rate: Normal [place]: Right [place] Deviation Ectopy: None Conduction: Left bundle branch block (complete) ST Segments/ T Waves: No ST-T wave changes and No acute ischemic changes Q Waves: None Comparison to prior: Unchanged from previous on Clinical Impression: Unchanged from previous EKG Medications - No data to display Old chart from [facility] reviewed, supported history as above. Labs reviewed and normal. History obtained from family. Critical care time: none Assessments & Plan (with Medical Decision Making) Assessment: Chest Pain without evidence of myocardial injury. 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 Patient reports that while sitting in school this afternoon he had sudden onset of substernal left-sided chest pain. Shortly prior to evaluation patient reports his pain spontaneously subsided. Patient has otherwise been feeling wellover the past couple days. Upon initial evaluation here the patient is hemodynamically stable with normal vital signs. He is afebrile. Patient is oxygenating in the upper 90s with a normal respiratory r ate. On physical exam the patient has an obvious midline scar that is well- healed. Patient has good strong peripheral pulses. No evidence of significant peripheral edema. Good distal capillary refill was noted. Patient otherwise appears well and is not in any acute distress. Spoke with the pediatric ca rdiology early in the case who came down and saw the patient. Lab tests were ordered and did not reveal any concerning signs. EKG was obtained and is largely unchanged from previous studies. Given the patient has no significant respiratory findings and no obvious signs of trauma I do not feel the patient requires any chest x-ray or additional advanced imaging at this time. Cardiology believes that these chest pain episodes likely represent atrial tachycardia and the patient is experiencing palpitations. Cardiology recommended Holter monitor for 1 week and follow-up with primary casino change attendant. I discussed the findings and plan with family and patient. They are amenable to this plan. Plan: Patient will be discharged home in stable condition with a cardiac rhythm monitor for 1 week. Reviewed with patient and family reasons to return to the emergency department including persistent chest pain, worsening shortness of breath, new onset peripheral edema, uncontrolled fever or any otherconcerning findings. I have reviewed the nursing notes. I have reviewed the findings, diagnosis, plan and need for followup with the patient. Final diagnoses: Atypical chest pain Lino Hager [facility] Emergency Medicine Resident 06/21/2017 [facility] EMERGENCY DEPARTMENT Patient data was collected by the resident. Patient was seen and evaluated by me. I repeated the history and physical exam of the patient. I have discussed with the resident the diagnosis, management options, and plan as documented in the Resident Note. The [place] portions of the note including the entire assessment and plan reflect my documentation. Delfin Agrawal M.D. Delfin Agrawal MD 06/21/17 191 SIT CLERK documented in this encounter Plan of Treatment Upcoming Encounters Date Type Specialty Care Team Description 07/27/2022 Ancillary Procedure Cardiology Cordell Juarez MD [address] [facility] [address] [place] [address] (Wo rk) 07/27/2022 Office Visit Cardiology Cordell Juarez [facility] [address] [facility] [address] [place] [address] (Wo rk) Pending Results Name Type Priority Associated Diagnoses Date/Ti me EKG 12 lead - EKG STAT 06/21/2017 1:3 3 PM pediatric DEPOSIT CLERK Zio Patch Holter Cardiac Services STAT Atrial arrhythmia 12:21 PM Adult Pediatric CDT Greater than 48 hrs Scheduled Orders Name Type Priority Associated Diagnoses Order S chedule Zio Patch Holter Cardiac Services STAT Atrial arrhythmia On e time imaging for Adult Pediatric 1 Occurrence s Greater than 48 hrs starting 05/18/2018 until 8 documented as of this encounter Procedures Procedure Name Priority Date/Time Associated Comments Diagnosis TROPONIN POCT Routine 06/21/2017 1:46 PM Results for this DEPOSIT CLERK procedure are i n the results section. PLATELET FUNCTION ASA STAT 06/21/2017 1:42 PM Atypical ches t pain Results for this DEPOSIT CLERK procedure are i n the results section. TROPONIN I STAT 06/21/2017 1:42 PM Results f or this DEPOSIT CLERK procedure are i n the results section. NT PROBNP INPATIENT Routine 06/21/2017 1:42 PM Re sults for this DEPOSIT CLERK procedure are i n the results section. DIGOXIN LEVEL STAT 06/21/2017 1:42 PM Results for this DEPOSIT CLERK procedure are i n the results section. CRP INFLAMMATION STAT 06/21/2017 1:42 PM Resul ts for this DEPOSIT CLERK procedure are i n the results section. EKG 12 LEAD - STAT 06/21/2017 1:33 PM PEDIATRIC DEPOSIT CLERK HOLTER MONITOR 06/21/2017 12:00 CARDIAC - HIM SCAN AM DEPOSIT CLERK documented in this encounter Results Troponin POCT (06/21/2017 1:46 PM DEPOSIT CLERK) athologist Signature Troponin I 0.03 0.00 - 0.10 06/21/2017 POINT OF CARE ug/L 2:00 PM DEPOSIT CLERK TEST, HANDHELD METER Specimen Anatomical Collection Method Collection Time Receive d Time (Source) Location / / Volume Laterality 06/21/2017 1:46 PM 8 2:00 DEPOSIT CLERK PM DEPOSIT CLERK Delfin Agrawal MD LAB - ENTER/EDIT POCT Performing Organization Address City/State/ZIP Code Phon e Number [facility] POINT OF CARE TEST, HANDHELD METER POINT OF CARE TEST, HANDHELD METER (ABNORMAL) Nt probnp inpatient (06/21/2017 1:42 PM DEPOSIT CLERK) P athologist Signature N-Terminal Pro 395 (H) 0 - 240 06/21/2017 [place] BNP Inpatient pg/mL 2:42 PM DEPOSIT CLERK [facility] Comment: Reference range shown and [...] Time (Source) Location / / Volume Laterality 06/21/2017 1:42 PM 8 2:11 DEPOSIT CLERK PM DEPOSIT CLERK Lino Hager MD LAB - BLOOD ORDERABLES Performing Organization Address City/State/ZIP Code Phon e Number [facility] [address] [place] [address] [facility] [address] [facility] [place] [address], [facility] [phone] Troponin I (06/21/2017 1:42 PM DEPOSIT CLERK) P athologist Signature Troponin I ES 0.045 0.000 - 06/21/2017 [facility] 0.045 ug/L 2:41 PM DEPOSIT CLERK [facility] Comment: The 99th percentile for upper reference range is 0.045 ug/L. ??Troponin values in the range of 0.045 - 0.120 ug/L may b e associated with risks of adverse clinical events. Specimen Anatomical Collection Method Collection Time Receive d Time (Source) Location / / Volume Laterality Blood specimen 06/21/2017 1:42 PM 018 2:11 (specimen) DEPOSIT CLERK PM DEPOSIT CLERK Lino Hager MD LAB - BLOOD ORDERABLES Performing Organization Address City/[facility]/ZIP Code Phon e Number [place] [id number] [place] [address] [facility] CRP inflammation (06/21/2017 1:42 PM DEPOSIT CLERK) Analysis Performed At Patho logist Time Signature CRP Inflammation <2.9 0.0 - 8.0 06/21/2017 [place] F mg/L 2:40 PM DEPOSIT CLERK [facility] Specimen Anatomical Collection Method Collection Time Receive d Time (Source) Location / / Volume Laterality Blood specimen 06/21/2017 1:42 PM 018 2:11 (specimen) DEPOSIT CLERK PM DEPOSIT CLERK Lino Hager MD LAB - BLOOD ORDERABLES Performing Organization Address City/State/ZIP Code Phon e Number [address] [address] [facility] Digoxin level (06/21/2017 1:42 PM DEPOSIT CLERK) P athologist Signature Digoxin Level 0.7 0.5 - 2.0 06/21/2017 [facility] ug/L 2:52 PM [facility] Specimen Anatomical Collection Method Collection Time Receive d Time (Source) Location / / Volume Laterality Blood specimen 06/21/2017 1:42 PM 018 2:11 (specimen) DEPOSIT CLERK PM DEPOSIT CLERK Lino Hager MD LAB - BLOOD ORDERABLES Performing Organization Address City/State/ZIP Code Phon e Number [address] [address] [facility] Platelet Function ASA (06/21/2017 1:42 PM DEPOSIT CLERK) Patholo gist Method Time Signature Platelet Canceled, ARU 06/21/2017 [facility] Function ASA Test 3:06 PM DEPOSIT CLERK [facility] Comment: Unsatisfactory specimen - collected in w tom container NOTIFIED KIRAN WHITLEYRN AT 1505 ON 06.21.17 BY 4878 Specimen Anatomical Collection Method Collection Time Receive d Time (Source) Location / / Volume Laterality Blood specimen 06/21/2017 1:42 PM 018 2:11 (specimen) DEPOSIT CLERK PM DEPOSIT CLERK Lino Hager MD LAB - BLOOD ORDERABLES Performing Organization Address City/[facility]/ZIP Code Phon e Number [address] [address] [facility] HOLTER MONITOR CARDIAC - HIM SCAN (06/21/2017 12:00 AM DEPOSIT CLERK) Specimen (Source) Anatomical Location Collection Method / Collectio n Time Received Time / Laterality Volume 06/21/2017 Narrative This result has an attachment that is no t available. Provider Scan ECG ORDERABLES documented in this encounter Visit Diagnoses Diagnosis Atypical chest pain Other chest pain Atrial arrhythmia Cardiac dysrhythmia, unspecified documented in this encounter Administered Medications Inactive Administered Medications - up to 3 most recent administrations Medication Order MAR Action Action Date Dose Rate Site sodium chloride (PF) 0.9% PF flush 1-5 m L 1-5 mL, Intracatheter, EVERY 1 HOUR PRN, line flush, p ost meds or blood draw, Starting on Sat06/21/17 at 1329, for miah pheral IV line flush post IV meds. 1-3 mL post IV meds. 1-5 mL post blood draw. Volume is depend ent on catheter size. sodium chloride (PF) 0.9% PF flush 3 mL 3 mL, Intracatheter, EVERY 8 HOURS, Firs t dose on Sat06/21/17 at 1331, And Q1H PRN, to lock peripheral IV dormant line. documented in this encounter Active and Recently Administered Medications Times are shown in DEPOSIT CLERK. Scheduled Medication Order 06/19/2017 06/20/2017 06/21/2017 sodium chloride (PF) 0.9% PF flush 3 mL 1331 (Canceled Entry - Provider: Orders Generic Provider - Comment: Automatically canceled at discontinue of medication order) 3 mL, Intracatheter, EVERY 8 HOURS, Firs t dose on Sat06/21/17 at 1331, And Q1H PRN, to lock peripheral IV dormant line. PRN Medication Order 06/19/2017 06/20/2017 06/21/2017 sodium chloride (PF) 0.9% PF flush 1-5 mL 1-5 mL, Intracatheter, EVERY 1 HOUR PRN, line flush, post meds or blood draw, Starting Sat06/21/17 at 1329, for peripheral IV line flush post IV meds. 1-3 mL post IV meds. 1-5 mL post blood draw. Volume is dependent on catheter size. documented in this encounter Care Teams Graphite Pan Drier Tender Relationship Specialty Start Date End Date Stephen Sauceda PCP - General Pediatrics 03/06/17 06/24/19 [facility] [address] [place] [address] documented as of this encounter
--- OUTSIDE RECORDS SUMMARY | 2022-04-10 09:58 | XMS_ITS | Encounter Summary ---
:2000 Author Organization [place] Address [facility] [place] [address] Care Team Providers Name Role Phone KomalStephen Primary Care Provider Reason for Visit Reason Onset Date Comments Refill Request 03/12/2017 Encounter Details Date Type Department Care Team Description 03/12/2017 Refill [facility] Pediatric Cordell Juarez MD Refill Request Specialty Clinic [address] [place] [address] [facility] [place] [address] [phone] Social History Tobacco Use Types Packs/Day Years [...] Ancillary Procedure Cardiology Cordell Juarez MD [address] [place] [address] (Wo rk) 07/27/2022 Office Visit Cardiology Larry, Cordell skelton MD [address] [place] [address] (Wo rk) documented as of this encounter Visit Diagnoses Diagnosis 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 SVT (supraventricular tachycardia) (H) Other specified cardiac dysrhythmias documented in this encounter Care Teams Pattern Assembler Relationship Specialty Start Date End Date Stephen Sauceda PCP - General Pediatrics 03/06/17 06/24/19 [facility] [address] [place] [address] documented as of this encounter
--- OUTSIDE RECORDS SUMMARY | 2022-04-10 09:58 | XMS_ITS | Encounter Summary ---
:2000 Author Organization [place] Address [address] [facility] [place] [address] Care Team Providers Name Role Phone Stephen Sauceda Primary Care Provider Reason for Visit (Routine) - Closed Specialty Diagnoses / Procedures Referred By Contact Refer red To Contact Cardiology Diagnoses echo at [address] [place] [address], [facility] Zz Rh Echocardiography Procedures [facility] PEDIATRIC CONGENITAL [address] [place], [place] [address] Phone: Referral ID Status Reason Start Date Expiration Date Visits Requ ested Visits Authorized [id number] Closed 05/29/2017 05/29/2018 1 1 Encounter Details Date Type Department Care Team Description 05/29/2017 [facility] Tachycardia Cardiopulmonary [address] [facility] [address] [place] [address] [phone] Social History Tobacco Use Types Packs/Day Years [...] Tachycardia Montelukast Sodium 0 2018 (SINGULAIR PO) sildenafil (REVATIO) 20 Take 1 tablet (20 90 tablet 11 05/2906/21/2017 MG tabletIndications: mg) by mouth three Single [...] Care Team Description 07/27/2022 Ancillary Procedure Cardiology Javier, Cordell Barajas MD [address] [address] [place] [address] (Wo rk) 07/27/2022 Office Visit Cardiology Cordell Juarez MD [address] [place] [address] (Wo rk) documented as of this encounter Procedures Procedure Name Priority Date/Time Associated Diagnosis Comme nts ECHO PEDIATRIC Routine 05/29/2017 10:38 Tachycardia Results f or this CONGENITAL AM COUNTING MACHINE OPERATOR procedure are i n the results section. documented in this encounter Results Echo pediatric congenital (05/29/2017 10:38 AM COUNTING MACHINE OPERATOR) Anatomical Region Laterality Modality Echocardiography Specimen (Source) Anatomical Collection Method Collection Time Re ceived Time Location / / Volume Laterality 05/29/2017 10:10 AM COUNTING MACHINE OPERATOR Narrative 05/29/2017 12:11 PM COUNTING MACHINE OPERATOR [id number]^JAVIER^CORDELL^RYAN ?Study ID: [id number] ?[facility] ?[facility] ?[address] ?[place] [address] ? Pediatric Echocardiogram __ Name: JUDE BILLS Study Date: 05/29/2017 10:10 AM ? Patient Location: [facility] ? Age: 17 yrs : 2000 [...] Procedure Note Artemio Silva MD - 05/29/2017 [id number] [facility] [id number]^JAVIER^CORDELL^RYAN Study ID: [id number] [address] [place] [address] Pediatric Echocardiogram __ Name: JUDE BILLS Study Date: 05/29/2017 10:10 AM Patient Location: [facility] Age: 17 yrs : 2000 BP: 93/54 mmHg Gender: Male Patient Class: Outpatient Height: 163 cm Ordering Provider: CORDELL JUAREZ Weight: 5 8 kg Referring Provider: CORDELL JUAREZ BS A: [...] unspecified documented in this encounter Care Teams Aquatics Director Relationship Specialty Start Date End Date Stephen Sauceda PCP - General Pediatrics 03/06/17 06/24/19 [facility] [address] [place] [address] documented as of this encounter
--- OUTSIDE RECORDS SUMMARY | 2022-04-10 09:58 | XMS_ITS | Encounter Summary ---
:2000 Author Organization [place] Address [address] [place] [address] Care Team Providers Name Role Phone Unavailable Primary Care Provider Unavailable Reason for Visit Reason Comments Heart Problem Tachycardia Encounter Details Date Type Department Care Team Description 09/14/2016 Office Visit [facility] Marion Figueroa Atrial tachycardia (H) (Primary Dx); Health Pediatric MD Andra Sick sinus syndrome (H) Specialty Clinic [address] [place] [address] [place], [place] [phone] (Wo rk) [address] [phone] Social History Tobacco Use Types Packs/Day Years Used Date Smoking Tobacco: Never Comments: none at home Alcohol Use Standard Drinks/Week Comments No 0 (1 standard drink = 0.6 oz pure alcoho l) Sex Assigned at Date Recorded Male 03/09/2019 1:21 PM CDT documented as of this encounter Last Filed Vital Signs Vital Sign Reading Time Taken Comments Blood Pressure 103/62 09/14/2016 11:22 AM CDT Pulse 50 09/14/2016 11:22 AM CDT Temperature - - Respiratory Rate 22 09/14/2016 11:22 AM CDT Oxygen Saturation 96% 09/14/2016 11:22 AM CDT Inhaled Oxygen Concentration - - Weight 59.1 kg (130 lb 4.7 oz) 09/14/2016 11:22 AM CDT Height 161.5 cm (5' 3.58) 09/14/2016 11:22 AM CDT Body Mass Index 22.66 09/14/2016 11:22 AM CDT Body Mass Index Percentile 70.60 % 09/14/2016 11:22 AM C DT Growth Chart: [facility] (Boys, 2-20 Years) documented in this encounter Patient Instructions Patient InstructionsJulio Hu CMA - 09/14/2016 11:30 AM CDT [facility] Pediatric [facility]ty [facility] [place] [facility] [phone] Nu Hernandez RN Station Engineer: [phone] After Hours Emergency: [phone]. Ask for the on-call doctor for the specialty you are calling for be paged. Prescription Renewals: Your pharmacy must fax requests to [phone]. Please allow 2-3 days for prescriptions to be authorized. If your physician has ordered an x-ray or MRI, you may schedule this test by calling [facility] Radiologyin [place] at [phone]. documented in this encounter Progress Notes Marion Figueroa MD - 09/14/2016 11:30 AM CDT Your patient, Jude Bills, was seen in the Pediatric Electrophysiology/Cardiology at the [facility] on Sep 14, 2016. As you know, Jude is now 16 year old and was referred for evaluation of sick sinus syndrome in the face of Fontan physiology. 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 He had catheter closure of his Fontan fenestration at the [facility] in January 2007. Jude was last seen in clinic in 2014 and is here with his mother today due to concerns of fatigue and some LE swelling that is intermittent. Jude and his mother also feel that he is more fatigued with more variable exercise tolerance than he has had inthe past. There is no syncope. He has been compliant with his medications. He denies any use of alcohol or drugs. Jude's complaints surround a weird feeling of a racing heart beat. During his Holter in August2016 he had several sensations of a fast heart beat but the recorded max HR = 103 BPM. Jude has otherwise remained asymptomatic from a hemodynamic and cardiovascular standpoint. A 10 point review of systems was performed and was essentially noncontributory. Family history is noncontributory. Social history reveals that he lives at home with parents. Allergies: Allergies Allergen Reactions ??? Motrin [Ibuprofen] ??? Seasonal Allergies Itchy eyes, runny nose, hives when around tall grasses Immunizations are up to date as per mom. Medications: Current Outpatient Prescriptions Medication Sig Dispense Refill ??? spironolactone (ALDACTONE) 25 MG tablet Take 1 tablet (25 mg) by mouth daily 45 tablet 3 ??? metoprolol (LOPRESSOR) 25 MG tablet Take 1.5 tablets (37.5 mg) by mouth 2 times daily 90 tablet 11 ??? furosemide (LASIX) 20 MG tablet Take 0.5 tablets (10 mg) by mouth daily 30 tablet 3 ??? digoxin (LANOXIN) 250 MCG tablet Take 1 tablet (250 mcg) by mouth daily 30 tablet 11 ??? lisinopril (PRINIVIL,ZESTRIL) 10 MG tablet Take 1 tablet (10 mg) by mouth daily 90 tablet 3 ??? warfarin (COUMADIN) 5 MG tablet Take 1 tablet (5mg) every day except Saturday and Saturday. Take 1/2 tablet (2.5 mg) every Saturday and Saturday 30 tablet ??? dexmethylphenidate (FOCALIN XR) 15 MG 24 hr capsule Take 15 mg by mouth daily Reported on 09/14/2016 ??? Loratadine (CLARITIN PO) Take 10 mg by mouth daily Reported on 09/14/2016 General: Patient's height is 161.5 cm, 4 %ile based on CDC 2-20 Years ubsiinz-wdz-vld data using vitals from 09/14/2016.. Weight is 59.1 kg (actual weight), 34 %ile based on CDC 2-20 Years sxyiyr-tmy-zez data using vitals from 09/14/2016.. BP 103/62 (BP Location: Right arm, Patient Position: Chair, Cuff Size: Adult Regular) Pulse 50 Resp 22 Ht 5' 3.58 (161.5 cm) Wt 130 lb 4.7 oz (59.1 kg) SpO2 96% BMI 22.66 kg/m2 On physical examination he was an alert and appropriate patient, generally in no apparent distress. Luke's HEENT exam was unremarkable. Patient's neck revealed no JVD, and no masses. Chest revealed no deformities. Lungs were clear to auscultation. Cardiovascular exam revealed a normo-active precordiumwith no palpable thrill. There a normal S1 with a physiologically splitting S2, no S3, S4, gallops, clicks, rubs or murmurs were noted. Abdomen was soft with no hepatosplenomegaly. Extremities revealed2+ bilateral pulses without delay. Neurologically he is grossly normal. There are no skin-related lesions. An ECG obtained at the time of clinic visit revealed a sinus rhythm with normal conduction intervals. There was NSR with no evidence of preexcitation @ HR = 43 BPM. The QTC was 358 msec. RI = 170 msec Holter 09/10/2016 48 hour: SR with HR = 34 - 103 BPM, average HR = 56 BPM. There were 779 PVCs amd 1 PAC. There were no sustained arrhythmias or pauses. Diagnoses: 1. Heterotaxy Syndrome 2. 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 Hx of malrotation - S/P Bossman's procedure 4. Hx of ADHD 5. Hx of colitis (? Etiology) - not an issue currently 6. SSS - Holter 08/2016 average HR = 56 BPM with max HR = 103 BPM; there were 779 PVCs - S/P EPS with no inducible SVT, documenting abnormal SNRTs The clinical ramifications of SSS and associated Fontan physiology were extensively discussed. I suggested clinical and symptomatic F/U. I agree with Dr Juarez's assessment and plan. I am pleased that Jude is doing reasonably well from a hemodynamic and cardiovascular standpoint, otherwise. I plan on following him clinically. Recommendations: 1. No activity restrictions or dietary recommendations were made at this clinic visit. 2. SBE prophylaxis is not indicated in this patient. 3. There were no changes made with regards to his medications 4. Followup Pediatric Cardiology Clinic appointment was recommended with Dr Juarez 5. Followup primary health care was also suggested. Thank you very much for allowing me to participate in this patient's health care. Should there be any questions or concerns regarding his diagnosis or treatment, please don't hesitate to contact me. A minimum of 45 minutes was spent with the patient of which 40 minutes was spent counseling and educating the family with regards to the clinical picture and test results as noted in diagnosis(es). Marion Figueroa MD, MS, GARCIA Director, Pediatric Cardiac Electrophysiology Pediatric Cardiology & Critical Care Medicine [facility]'[address] [place] [facility] [address] FAX [phone] CC JOSELIN ROJAS Copy to patient JOSEPH BILLS ROBERT [address] [address] [facility] [phone] documented in this encounter Nursing Notes Julio Hu CMA - 09/14/2016 11:30 AM CDT Chief Complaint Patient presents with ??? Heart Problem Tachycardia Initial BP 103/62 (BP Location: Right arm, Patient Position: Chair, Cuff Size: Adult Regular) Pulse 50 Resp 22 Ht 5' 3.58 (161.5 cm) Wt 130 lb 4.7 oz (59.1 kg) SpO2 96% BMI 22.66 kg/m2 Estimated body mass index is 22.66 kg/(m^2) as calculated from the following: Height as of this encounter: 5' 3.58 (161.5 cm). Weight as of this encounter: 130 lb 4.7 oz (59.1 kg). Medication Reconciliation: complete documented in this encounter Plan of Treatment Upcoming Encounters Date Type Specialty Care Team Description 07/27/2022 Ancillary Procedure Cardiology Cordell Juarez MD [address] [place] [address] (Wo rk) 07/27/2022 Office Visit Cardiology Cordell Juarez MD [address] [place] [address] (Wo rk) documented as of this encounter Procedures Procedure Name Priority Date/Time Associated Diagnosis Comme nts EKG 12-LEAD Routine 09/14/2016 10:32 AM Atrial tachycardia Re sults for this COMPLETE W/READ - CDT (H) procedure are in CLINICS the results section. documented in this encounter Results EKG 12-lead complete w/read - Clinics (09/14/2016 10:32 AM CDT) [facility] gist Method Time Signature Interpretation ECG Click View RADIOLOGY Image link RESULTS to view waveform and result Specimen (Source) Anatomical Collection Method Collection Time Re ceived Time Location / / Volume Laterality 09/14/2016 10:32 AM CDT Marion Figueroa MD ECG ORDERABLES Performing Organization Address City/State/ZIP Code Phon e Number RADIOLOGY RESULTS documented in this encounter Visit Diagnoses Diagnosis Atrial tachycardia (H) - Primary Other specified cardiac dysrhythmias Sick sinus syndrome (H) Sinoatrial node dysfunction documented in this encounter
--- OUTSIDE RECORDS SUMMARY | 2022-04-10 09:59 | XMS_ITS | Encounter Summary ---
:2000 Author Organization [place] Address [facility] [place] [address] Care Team Providers Name Role Phone Unavailable Primary Care Provider Unavailable Reason for Visit Reason Comments RECHECK Here for holter Encounter Details Date Type Department Care Team Description 11/11/2015 Office Visit [facility] Larry, Cordell Barajas, Tach ycardia with Pediatric Specialty MD heart rate 100-[address] AV beats per minute [address] (Primary Dx) [address] [place] [phone] Social History Tobacco Use Types Packs/Day Years Used Date Smoking Tobacco: Never Comments: none at home Alcohol Use Standard Drinks/Week Comments Not Asked 0 (1 standard drink = 0.6 oz pure alcoho l) Sex Assigned at Date Recorded Male 03/09/2019 1:21 PM CDT documented as of this encounter Progress Notes Delicia Izaguirre RN - 11/11/2015 11:29 AM CDT Patient here for 24 hour holter documented in this encounter Nursing Notes Court Martin - 11/11/2015 1:04 PM CDT Informed mom that Luke's labs that were done at the [facility] on 11/09/15 looked good,according to Dr. Juarez. Delicia Izaguirre RN - 11/11/2015 11:25 AM CDT Patients mom came in today to strip picker a holter monitor for Luke. Mom is a RN and works at clinic in [place]. Mom was given instructions on how to place holter. and stated she feels comfortable placing holter on patient this weekend. Mom stated that she will bring back on Saturday. Delicia Izaguirre RN documented in this encounter Plan of Treatment Upcoming Encounters Date Type Specialty Care Team Description 07/27/2022 Ancillary Procedure Cardiology Cordell Juarez MD [address] [place] [address] (Arleen valdes) 07/27/2022 Office Visit Cardiology Cordell Juarez MD [address] [place] [address] (Arleen valdes) documented as of this encounter Procedures Procedure Name Priority Date/Time Associated Diagnosis Comme nts HOLTER RECORDING 24 HRS Routine 11/12/2015 Tachycardia wi th heart rate 100-120 beats per minute documented in this encounter Results HOLTER RECORDING 24 HRS (11/12/2015) Specimen (Source) Anatomical Location Collection Method / Collectio n Time Received Time / Laterality Volume 11/12/2015 Narrative This result has an attachment that is no t available. Cordell Juarez MD PROCEDURES documented in this encounter Visit Diagnoses Diagnosis Tachycardia with heart rate 100-120 beat s per minute - Primary documented in this encounter
--- OUTSIDE RECORDS SUMMARY | 2022-04-10 09:59 | XMS_ITS | Encounter Summary ---
:2000 Author Organization [place] Address [address] [facility] [place] [address] Care Team Providers Name Role Phone Unavailable Primary Care Provider Unavailable Reason for Visit (Routine) - Closed Specialty Diagnoses / Procedures Referred By Contact Refer red To Contact Cardiology Diagnoses [address] JUAREZ. Zzrh Cardiac Test [facility] Procedures ZIOPATCH MONITOR [address] [place], [place] [address] Phone: Fax: Referral ID Status Reason Start Date Expiration Date Visits Requ ested Visits Authorized [id number] Closed 05/23/2016 05/23/2017 1 1 Encounter Details Date Type Department Care Team Description 05/23/2016 Hospital Encounter [place] [facility] Cordell Juarez [facility] (supraventricular [address] [facility] tachyca rdia) (H) Drive [address] [place] [address] [id number] Social History Tobacco Use Types Packs/Day Years [...] documented as of this encounter Progress Notes Cassandra Meyer RT - 05/23/2016 1:47 PM CST Zio patch attached. All questions answered. USION SPECIALIST documented in this encounter Plan of Treatment Upcoming Encounters Date Type Specialty Care Team Description 07/27/2022 Ancillary Procedure Cardiology LarryCordell MD [address] [facility] [place] [address] (Wo rk) 07/27/2022 Office Visit Cardiology Cordell Juarez MD [address] [facility] [place] [address] (Wo rk) documented as of this encounter Procedures Procedure Name Priority Date/Time Associated Diagnosis Comme nts ZIO PATCH HOLTER Routine 05/23/2016 1:49 PM SVT Resul ts for this INCLUSION SPECIALIST (supraventricular procedure are in tachycardia) (H) the results section. documented in this encounter Results Zio Patch Holter (05/23/2016 1:49 PM INCLUSION SPECIALIST) Narrative RADIANT - 05/23/2016 1:49 PM INCLUSION SPECIALIST [address] [address] 05/23/2016 Patient: ??Jude Rajansif Chart: [id number] : ??2000 Age: ??16 year old Sex: ??male Procedure: ??ZioPatch Monitor. Mobile Qa Tester performing hook-up: ??Cassandra Meyer Cordell Juarez MD CV CARDIAC SERVICES ORDERABL ES Performing Organization Address City/State/ZIP Code Phon e Number RADIANT documented in this encounter Visit Diagnoses Diagnosis SVT (supraventricular tachycardia) (H) Other specified cardiac dysrhythmias documented in this encounter
--- OUTSIDE RECORDS SUMMARY | 2022-04-10 09:59 | XMS_ITS | Encounter Summary ---
:2000 Author Organization [place] Address [address] [facility] [place] [address] Care Team Providers Name Role Phone Unavailable Primary Care Provider Unavailable Reason for Visit Reason Comments Heart Problem Hospital follow up Encounter Details Date Type Department Care Team Description 02/03/2016 Office Visit [facility] Marion Figueroa trial node [facility] Pediatric CMD dysfunction (H) Special[facility] [address] [facility] [address] [place] [address] [facility] [address] [place] [address] [address] [address] [address] [facility] [place] [address] Social History Tobacco Use Types Packs/Day Years Used Date Smoking Tobacco: Never Comments: none at home Alcohol Use Standard Drinks/Week Comments No 0 (1 standard drink = 0.6 oz pure alcoho l) Sex Assigned at Date Recorded Male 03/09/2019 1:21 PM CDT documented as of this encounter Last Filed Vital Signs Vital Sign Reading Time Taken Comments Blood Pressure 102/54 02/03/2016 12:30 PM CDT Pulse 36 02/03/2016 12:30 PM CDT Temperature - - Respiratory Rate 16 02/03/2016 12:30 PM CDT Oxygen Saturation 99% 02/03/2016 12:30 PM CDT Inhaled Oxygen Concentration - - Weight 56.3 kg (124 lb 1.9 oz) 02/03/2016 12:30 PM CDT Height 161 cm (5' 3.39) 02/03/2016 12:30 PM CDT Body Mass Index 21.72 02/03/2016 12:30 PM CDT Body Mass Index Percentile 65.36 % 02/03/2016 12:30 PM C DT Growth Chart: [facility] (Boys, 2-20 Years) documented in this encounter Patient Instructions Patient InstructionsQiana Christensen LPN - 02/03/2016 12:00 PM CDT PEDS CARDIOLOGY [facility] 12th Floor, [facility] [address] [facility] [address] Cardiology Clinic Cardiology Office RN Supervisor Bakery SanitationKirsten (Bre) Pediatric Call Center/Scheduling After Hours and Emergency Contact Number * Ask for the home energy inspector weighing station operator Prescription Renewals The pharmacy must fax requests to * Please allow 3-4 days for prescriptions to be authorized documented in this encounter Progress Notes Marion Figueroa MD - 02/03/2016 12:30 PM CDT Your patient, Jude Bills, was seen in the Pediatric Electrophysiology/Cardiology at the [facility] on Feb 03, 2016. 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 He had catheter closure of his Fontan fenestration at the [facility] in January 2007. Jude was last seen in clinic in 2014 and is here with his mother today due to concerns of increased fatigue and some LE swelling that is intermittent. Jude and his mother also feel that he is more fatigued with more variable exercise tolerance than he has had in the past. He has had some recent injuries, including a broken tailbone that may be contributing to this. Jude denies increased chest pain or palpitations. No syncope. He has been compliant with his medications. He denies any use of alcohol or drugs. Jude has otherwise remained asymptomatic from a hemodynamic and cardiovascular standpoint. A 10 point review of systems was performed and was essentially noncontributory. Family history is noncontributory. Social history reveals that he lives at home with parents. Allergies: Allergies Allergen Reactions ??? Seasonal Allergies Itchy eyes, runny nose, hives when around tall grasses Immunizations are up to date as per mom. Medications: Current Outpatient Prescriptions Medication Sig Dispense Refill ??? metoprolol (LOPRESSOR) 25 MG tablet Take 1 tablet (25 mg) by mouth 2 times daily 60 tablet 1 ??? warfarin (COUMADIN) 5 MG tablet Take 1 tablet (5mg) every day except Saturday and Saturday. Take 1/2 tablet (2.5 mg) every Saturday and Saturday 30 tablet ??? digoxin (LANOXIN) 250 MCG tablet Take 1 tablet (250 mcg) by mouth daily 30 tablet 1 ??? spironolactone (ALDACTONE) 25 MG tablet Take 0.5 tablets (12.5 mg) by mouth daily 30 tablet 3 ??? lisinopril (PRINIVIL,ZESTRIL) 10 MG tablet Take 1 tablet (10 mg) by mouth daily 90 tablet 10 ??? dexmethylphenidate (FOCALIN XR) 15 MG 24 hr capsule Take 15 mg by mouth daily ??? Loratadine (CLARITIN PO) Take 10 mg by mouth daily General: Patient's height is 161 cm, 5%ile based on CDC 2-20 Years [id number] data using vitalsfrom 02/03/2016.. Weight is 56.3 kg, 32%ile based on CDC 2-20 Years [id number] data using vitals from 02/03/2016.. BP 102/54 mmHg Pulse 36 Resp 16 Ht 1.61 m (5' 3.39) Wt 56.3 kg (124 lb 1.9 oz) BMI 21.72 kg/m2 SpO2 99% On physical examination he was an alert and appropriate patient, generally in no apparent distress. Jude's HEENT exam was unremarkable. Patient's neck revealed [...] no evidence of preexcitation @ HR = 42 BPM. The QTC was 352 msec. AR = 164 msec Diagnoses: 1. Heterotaxy Syndrome 2. 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 Hx of malrotation - S/P [place]'s procedure 4. Hx of ADHD 5. Hx of colitis (? Etiology) - not an issue currently 6. SSS - holter today pending - no hx of syncope - - S/P EPS with no inducible SVT, documenting abnormal SNRTs The clinical evaluations and meanings of cardiac cath were reviewed and discussed. Holter results are pending and I will re-consider pacing therapy should Jude develop more symptoms. I am pleased that Jude is doing reasonably well from a hemodynamic and cardiovascular standpoint. I plan on following him clinically. Recommendations: [...] Electrophysiology Pediatric Cardiology & Critical Care Medicine [facility] [address] [facility] [address] [facility] [address] FAX [phone] CC JOSELIN ROJAS Copy to patient JAIMIE BILLS ROBERT [address] [facility] [phone] documented in this encounter Nursing Notes Qiana Christensen LPN - 02/03/2016 12:00 PM CDT Chief Complaint Patient presents with ??? Heart Problem Hospital follow up BP 102/54 mmHg Pulse 36 Resp 16 Ht 5' 3.39 (161 cm) Wt 124 lb 1.9 oz (56.3 kg) BMI 21.72 kg/m2 SpO2 99% Qiana Christensen LPN documented in this encounter Plan of Treatment Upcoming Encounters Date Type Specialty Care Team Description 07/27/2022 Ancillary Procedure Cardiology Cordell Juarez MD [facility] [place], [place] [id number] (Wo rk) 07/27/2022 Office Visit Cardiology Cordell Juarez MD [address] [place], [place] [address] (Wo rk) documented as of this encounter Visit Diagnoses Diagnosis Sinoatrial node dysfunction (H) - Primar y Sinoatrial node dysfunction documented in this encounter
--- OUTSIDE RECORDS SUMMARY | 2022-04-10 09:59 | XMS_ITS | Encounter Summary ---
:2000 Author Organization [place] Address [address] [place] [address] Care Team Providers Name Role Phone Unavailable Primary Care Provider Unavailable Encounter Details Date Type Department Care Team Description 01/10/2016 Telephone UR PHYS Loly Wilkerson [facility] [address] [facility] [address] [place] [address] [place], [place] [address] [phone] Social History Tobacco Use Types Packs/Day Years Used Date Smoking Tobacco: Never Comments: none at home Alcohol Use Standard Drinks/Week Comments Not Asked 0 (1 standard drink = 0.6 oz pure alcoho l) Sex Assigned at Date Recorded Male 03/09/2019 1:21 PM CDT documented as of this encounter Miscellaneous Notes Telephone Encounter - Loly Jasso PA - 01/10/2016 7:50 AM CDT Plan for cath on 01/17; Hold Coumadin x 3 days (last dose January 13). No bridging. Hold Lisinopril x 2 days (last dose January 14). Plan to do EPS study only. Mom returned message on 01/16. Clarified arrival time and NPO instructions. Jude has been holding coumadin since Thursday 12/14. He will hold his lisinopril today and take his digoxin with a sip of water inthe AM. He is scheduled for his H&P today at 2pm. Mom verbalized understanding and had no further questions. documented in this encounter Plan of Treatment Upcoming Encounters Date Type Specialty Care Team Description 07/27/2022 Ancillary Procedure Cardiology Cordell Juarez MD [address] [place], [place] [id number] (Wo lucio) 07/27/2022 Office Visit Cardiology Cordell Juarez MD [address] [place] [address] (Arleen valdes) documented as of this encounter Visit Diagnoses Not on filedocumented in this encounter
--- OUTSIDE RECORDS SUMMARY | 2022-04-10 09:59 | XMS_ITS | Encounter Summary ---
:2000 Author Organization [place] Address [facility] [place] [address] Care Team Providers Name Role Phone Unavailable Primary Care Provider Unavailable Encounter Details Date Type Department Care Team Description 05/23/2016 Orders Only [facility] Cordell Juarez SVT (supraventricular Pediatric Specialty tachycardia) (H) Clinic [address] (Primary Dx) [address] [facility] [place] [id number] [phone] Social History Tobacco Use Types Packs/Day Years [...] 07/27/2022 Ancillary Procedure Cardiology Cordell Juarez MD [address] [place], [place] [id number] [place] [address] (Wo rk) 07/27/2022 Office Visit Cardiology Cordell Juarez MD [address] [facility] [address] [place] [address] (Wo rk) documented as of this encounter Results Zio Patch Holter (05/23/2016 1:49 PM ERP IMPLEMENTATION CONSULTANT) Narrative RADIANT - 05/23/2016 1:49 PM ERP IMPLEMENTATION CONSULTANT [facility] [address] [facility] [address] [facility] [phone] 05/23/2016 Patient: ??[facility] Chart: [id number] : ??2000 Age: ??16 year old Sex: ??male Procedure: ??ZioPatch Monitor. Staffing Rn performing hook-up: ??Cassandra Meyer Cordell Juarez MD CV CARDIAC SERVICES ORDERABL ES Performing Organization Address City/State/ZIP Code Phon e Number RADIANT documented in this encounter Visit Diagnoses Diagnosis SVT (supraventricular tachycardia) (H) - Primary Other specified cardiac dysrhythmias SVT (supraventricular tachycardia) (H) Other specified cardiac dysrhythmias documented in this encounter
--- OUTSIDE RECORDS SUMMARY | 2022-04-10 09:59 | XMS_ITS | Encounter Summary ---
:2000 Author Organization [place] Address [address] [place] [address] Care Team Providers Name Role Phone Unavailable Primary Care Provider Unavailable Reason for Visit (Routine) - Closed Specialty Diagnoses / Procedures Referred By Contact Refer red To Contact Radiology / Radiology. Diagnoses EPIC ORDER [facility] Scan Procedures CT CHEST W [address] [place] [phone] Phone: Referral ID Status Reason Start Date Expiration Date Visits Requ ested Visits Authorized [id number] Closed 12/28/2015 12/27/2016 1 1 Encounter Details Date Type Department Care Team Description 01/04/2016 Hospital Encounter [facility] Cordell Juarez S/P Herbert [facility] Imaging procedure [address] [place] [address] [address] [place] [address] [phone] Social History Tobacco Use Types Packs/Day Years [...] digoxin (LANOXIN) 250 MCG Take 1 tablet 30 tablet 1 016 03/05/2016 tabletIndications: SVT (250 mcg) by (supraventricular mouth daily tachycardia) (H) lisinopril Take 1 tablet (10 90 tablet 10 02/23/2015 016 (PRINIVIL,ZESTRIL) 10 MG mg) by mouth tabletIndications: daily Hypoplastic left heart syndrome Loratadine (CLARITIN PO) Take 10 mg by 0 03/06/2017 mouth daily Reported on 09/14/2016 metoprolol (LOPRESSOR) 25 Take 1 tablet (25 60 tablet 1 10/201503/05/2016 MG tabletIndications: mg) by mouth 2 Hypoplastic left heart times daily syndrome omeprazole (PRILOSEC) 20 MG Take 1 capsule 90 capsule 3 02/201301/17/2016 capsuleIndications: History (20 mg) by mouth of gastritis daily spironolactone (ALDACTONE) Take 0.5 tablets 30 tablet 3 01/201608/01/2016 25 MG tabletIndications: (12.5 mg) by Hypoplastic left heart mouth daily syndrome warfarin (COUMADIN) 2 MG Take one tablet 90 tablet 0 201401/20/2016 tabletIndications: S/P every Saturday, Fontan procedure Saturday, Saturday warfarin (COUMADIN) 2.5 MG 2.5 mg every 0 016 01/20/2016 tabletIndications: S/P Saturday and Fontan procedure Saturday warfarin (COUMADIN) 4 MG Take one tablet 90 tablet 0 201401/20/2016 tabletIndications: on Saturday, Hypoplastic left heart , syndrome Saturday, and Saturday warfarin (COUMADIN) 5 MG Take 5mg every 0 016 01/20/2016 tabletIndications: day except Hypoplastic left heart Saturday and syndrome saturday warfarin (COUMADIN) 5 MG Take 1 tablet 30 tablet 0 01/20/20 16 08/30/2018 tabletIndications: (5mg) every day Hypoplastic left heart except Saturday and Saturday. Take 1/2 tablet (2.5 mg) every Saturday and Saturday documented as of this encounter Progress Notes Zee Stack CCLS - 01/04/2016 3:40 PM CDT 01/04/16 1537 Child Life Location Radiology Intervention Family Support;Preparation;Procedure Support;Sibling Support (CT Angiogram Chest Contrast) Preparation Comment Patient is familiar with CT and MRI's. Patient betty well with pokes/IV's and prefers no jtip. Patient did well for CT and was teary after the contrast because of how it made him feel. Provided water & crackers and patient slowly recovered to self. Family Support Comment Parents accompanied patient. Family lives [place]. Patient chose dad, Bear, to be present today. Sibling Support Comment (Patient has three natural born brothers and sisters. He is the only one adopted. ) Growth and Development Comment Appears age appropriate. Polite and well mannered. Anxiety Appropriate Outcomes/Follow Up Continue to Follow/Support documented in this encounter Plan of Treatment Upcoming Encounters Date Type Specialty Care Team Description 07/27/2022 Ancillary Procedure Cardiology Cordell Juarez MD [address] [facility] [address] [place] [address] (Wo lucio) 07/27/2022 Office Visit Cardiology Cordell Juarez MD [address] [place] [address] (Wo lucio) documented as of this encounter Procedures Procedure Name Priority Date/Time Associated Diagnosis Comme nts CTA CHEST WITH Routine 01/04/2016 2:54 PM S/P Fontan procedure Results for this CONTRAST CDT procedure are i n the results section. documented in this encounter Results CT Chest Angio w/o & w Contrast (01/04/2016 2:54 PM CDT) Anatomical Region Laterality Modality Chest, SUBRAD IR PROCEDURE, UMP CT CTA C omputed Tomography Specimen (Source) Anatomical Location Collection Method / Collectio n Time Received Time / Laterality Volume Impressions 01/05/2016 12:16 PM CDT IMPRESSION: 1. Double outlet right ventricle, left v entricular hypoplasia, transposition of the great arteries, and pulmonary stenosis. 2. Status bilateral Fortino and Fontan tin stomoses with subsequent Fontan fenestration device occlusion. 3. Single coronary artery common trunk. 4. Liver congestion likely of cardiac or igin. 5. Right-sided aortic arch with left-masoud ed ductus arteriosus. I have personally reviewed the examinati on and initial interpretation and I agree with the findings. SALEEM ENG MD Narrative 01/05/2016 12:16 PM CDT CTA ANGIOGRAM CHEST CONTRAST ??01/04/2016 2:54 PM COMPARISON: ??MR cardiac 05/24/2014 HISTORY: Double outlet right ventricle, left ventricular hypoplasia, transposition of great arteries, and pul monary stenosis status post central shunt, followed by Fortino procedu re and completion Fontan in mba intern. Amplatzer occluder clos ure of Fontan fenestration in 2006. TECHNIQUE: Cardiac triggered FLASH CT an giogram of the chest performed after 98ml's isovue 370 via ??a right si de peripheral IV. Scans at 25sec and 90sec. 3-D reconstructions per formed by the reader on an independent workstation. FINDINGS: SITUS: There is a normal spleen in the l eft upper quadrant. There is situs solitus in the chest, as demonstra julia by a normal airway pulmonary artery relationship. CAVAE: Right-sided inferior vena cava dr hector via extracardiac Fontan conduit into the branch pulmonary arteri es. Fontan fenestration into the left atrium is occluded by an Amplat z device. Bilateral right and left superior vena cavae drain into thei r respective branch pulmonary arteries via bilateral Fortino anastomosis . There is no bridging vein. PULMONARY VEINS: Two right and two left pulmonary veins drain into the left atrium unobstructed. ATRIA: Large intra-atrial communication. The atrial sizes are normal. ATRIOVENTRICULAR CONNECTION: Concordant. VENTRICLES: ??Hypoplasia of the left eliot tricle. Right ventricular enlargement. Large interventricular comm unication. D- loop ventricles with levocardia. VENTRICULOARTERIAL CONNECTION: Discordan t. The aorta arises from the right ventricle. AORTA AND SUPRA-AORTIC VESSELS: Right-si ded aortic arch with a left-sided ductus arteriosus bump. Mirro r image cervical branching pattern. No patent ductus arteriosus, co arctation, or aortopulmonary collateral arteries. Single coronary art cindy common trunk. PULMONARY ARTERY: Branch pulmonary arter ies are patent with normal branching pattern. UPPER ABDOMEN: The liver demonstrates pe riportal edema. BONES: Sternotomy. No acute osseous abno rmality. Procedure Note Saleem Eng MD - 01/05/2016Form atting of this note might be different from the original. CTA ANGIOGRAM CHEST CONTRAST 01/04/2016 2 :54 PM COMPARISON: MR cardiac 05/24/2014 HISTORY: Double outlet right ventricle, left ventricular hypoplasia, transposition of great arteries, and pul monary stenosis status post central shunt, followed by Fortino procedu re and completion Fontan in mba intern. Amplatzer occluder clos ure of Fontan fenestration in 2006. TECHNIQUE: Cardiac triggered FLASH CT an giogram of the chest performed after 98ml's isovue 370 via a right side peripheral IV. Scans at 25sec and 90sec. 3-D reconstructions per formed by the reader on an independent workstation. FINDINGS: SITUS: There is a normal spleen in the l eft upper quadrant. There is situs solitus in the chest, as demonstra julia by a normal airway pulmonary artery relationship. CAVAE: Right-sided inferior vena cava dr hector via extracardiac Fontan conduit into the branch pulmonary arteri es. Fontan fenestration into the left atrium is occluded by an Amplat z device. Bilateral right and left superior vena cavae drain into thei r respective branch pulmonary arteries via bilateral Fortino anastomosis . There is no bridging vein. PULMONARY VEINS: Two right and two left pulmonary veins drain into the left atrium unobstructed. ATRIA: Large intra-atrial communication. The atrial sizes are normal. ATRIOVENTRICULAR CONNECTION: Concordant. VENTRICLES: Hypoplasia of the left ventr icle. Right ventricular enlargement. Large interventricular comm unication. D- loop ventricles with levocardia. VENTRICULOARTERIAL CONNECTION: Discordan t. The aorta arises from the right ventricle. AORTA AND SUPRA-AORTIC VESSELS: Right-si ded aortic arch with a left-sided ductus arteriosus bump. Mirro r image cervical branching pattern. No patent ductus arteriosus, co arctation, or aortopulmonary collateral arteries. Single coronary art cindy common trunk. PULMONARY ARTERY: Branch pulmonary arter ies are patent with normal branching pattern. UPPER ABDOMEN: The liver demonstrates pe riportal edema. BONES: Sternotomy. No acute osseous abno rmality. IMPRESSION: 1. Double outlet right ventricle, left v entricular hypoplasia, transposition of the great arteries, and pulmonary stenosis. 2. Status bilateral Fortino and Fontan tin stomoses with subsequent Fontan fenestration device occlusion. 3. Single coronary artery common trunk. 4. Liver congestion likely of cardiac or igin. 5. Right-sided aortic arch with left-masoud ed ductus arteriosus. I have personally reviewed the examinati on and initial interpretation and I agree with the findings. SALEEM ENG MD Cordell Juarez MD IMG CT ORDERABLES documented in this encounter Visit Diagnoses Diagnosis S/P Fontan procedure Other postprocedural status documented in this encounter Administered Medications Inactive Administered Medications - up to 3 most recent administrations Medication Order MAR Action Action Date Dose Rate Site iopamidol (ISOVUE-370) 76% Given 01/04/2016 2:37 PM CDT 98 mLs solution 100 mL 100 mL, Intravenous, ONCE, On Sat01/04/16 at 1445, For 1 dose sodium chloride 0.9 % for CT scan flush dose Given 2:39 PM CDT 70 mLs 50 mL As instructed, 50 mL, ONCE, On Sat01/04/16 at 1445, For 1 dose documented in this encounter
--- OUTSIDE RECORDS SUMMARY | 2022-04-10 09:59 | XMS_ITS | Encounter Summary ---
:2000 Author Organization [facility] Address [address] [place] [address] Care Team Providers Name Role Phone Unavailable Primary Care Provider Unavailable Reason for Visit Auth/Cert Specialty Diagnoses / Procedures Referred By Contact Refer red To Contact Surgery Diagnoses Double Outleft Right Ventricle, Left Ventricle Hypoplastic Ur Periop Procedures HEART CATH CHILD EP STUDY CHILD EP ABLATION CHILD [address] [facility] [place] [phone] Phone: Fax: Referral ID Status Reason Start Date Expiration Date Visits Requ ested Visits Authorized [id number] 1 1 Encounter Details Date Type Department Care Team Description 01/18/2016 Surgery [facility] Hiremat Right/Left Heart Cath [facility] PeriOp Services Hellen, Procedure, [address]E Bustos [place] [address] [place] [address] AVE Ablation [phone] [place] [address] [id number] (Wo rk) Surgery Details Date/Time Status Location OR Service Patient Case Case Traum a Class Class Type Case? 01/18/16 7:30 Posted UR OR UR OR 19 Cardiology Same Day AM EP Study Surgery Panel 1 Procedure [facility] Anes Op Region Wound Class Commen ts Right/Left Heart Cath N/A General Heart Rig ht/Left Heart Cath Procedure, Procedure, Electrophysiology Study E lectrophysiology Study and Ablation and Ablation Panel 2 Procedure [facility] Anes Op Region Wound Class Commen ts CARDIAC ELECTROPHYSIOLOGY STUDY, PEDIATRIC N/A General Hear t CARDIAC ELECTROPHYSIOLOGY STUDY, WITH N/A General Heart ABLATION, PEDIATRIC Surgeon Surgeon Role Service Panel kAash Graves MD Primary Cardiology 1 Chari Kimball MD Primary Cardiology 2 documented in this encounter Social History Tobacco Use Types Packs/Day Years Used Date Smoking Tobacco: Never Comments: none at home Alcohol Use Standard Drinks/Week Comments No 0 (1 standard drink = 0.6 oz pure alcoho l) Sex Assigned at Date Recorded Male 03/09/2019 1:21 PM CDT documented as of this encounter Last Filed Vital Signs Vital Sign Reading Time Taken Comments Blood Pressure 97/54 01/18/2016 1:45 PM CDT Pulse - - Temperature 36.5 ??C (97.7 ??F) 01/18/2016 1:15 PM CDT Respiratory Rate 16 01/18/2016 1:45 PM CDT Oxygen Saturation 100% 01/18/2016 1:45 PM CDT Inhaled Oxygen Concentration - - Weight 55.5 kg (122 lb 5.7 oz) 01/18/2016 6:50 AM CDT Height 160.7 cm (5' 3.25) 01/18/2016 6:50 AM CDT Body Mass Index 21.58 01/18/2016 6:50 AM CDT Body Mass Index Percentile 64.07 % 01/20/2016 6:36 AM CD T Growth Chart: [facility] (Boys, 2-20 Years) documented in this encounter Discharge Summaries Marisabel Ugarte MD - 01/20/2016 2:24 PM CDT [facility], [place] Discharge Summary Pediatric Cardiology Date of Admission: 01/18/2016 Date of Discharge: 01/20/2016 2:14 PM Discharging Provider: Tammy Salvador MD (resident), Marisabel Ugarte MD (attending) Date of Service (when I saw the patient): 01/20/2016 Discharge Diagnoses Patient Active Problem List Diagnosis ??? Hypoplastic left heart syndrome ??? Congenital anomaly of fixation of intestine ??? Congenital anomalies of spleen ??? Attention deficit hyperactivity disorder (ADHD) ??? Colitis ??? Tachycardia ??? Fever ??? Tachycardia with heart rate 100-120 beats per minute ??? 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 He underwent a central shunt, followed by a Fortino procedure and completion of a Fontan procedure at the [facility] in ambulance assistant. He had catheter closure of his Fontan fenestration at the [facility] in January 2007. He has been followed annually and has been doing quite well, however this past spring has developed decreasing exercise tolerance as well as intermittent LLE swelling. He had a Holter in November 2015 which revelead two minutes of supraventricular tachycardia. He had a cath on 01/17 during which an atrial tachycardia was induced. After the cath the decision was made to start him on Metoprolol and admit him for 48hrs monitoring due to his baseline low heart rate at40-50. Hospital Course Jude Bills was admitted on 01/18/2016. The following problems were addressed during his hospitalization: CV: Sinus bradycardia, with intermittent atrial tachycardia: On admission, Jude was started on metoprolol 25 mg BID. He was kept on telemetry while inpatient. His heart rate was noted to drop as low as 34 while resting, with normal BP and good perfusion, and he was continued on the metoprolol. No arrhythmia or tachycardia was noted on telemetry. He had a Holter monitor placed on hospital day, to stay in place for a total of 48 hrs and to be mailed in. His coumadin was restarted per home dosing after hiscath and PE-study. Fontan circulation: Jude's home medications, incl spironolactone, lisinopril and digoxin were continued during this admission. Resp: Room air, no issue. Loratadin for allergies per home regimen. FEN/GI: Regular diet, no concerns. Heme: Coumadin per above. He takes 5 mg M, T, Th, F, Garcia and 2.5 mg W, Sa. Significant Results and Procedures Please see scanned results from EP study. Immunization History Immunization Status: up to date and documented Pending Results None Primary Care Physician Magda Winchester Physical Exam Vital Signs with Ranges Temp: [97.3 ??F (36.3 ??C)-98.1 ??F (36.7 ??C)] 98.1 ??F (36.7 ??C) Heart Rate: [34-56] 49 Resp: [16-20] 16 BP: (101-110)/(48-62) 102/52 mmHg SpO2: [94 %-98 %] 98 % I/O last 3 completed shifts: In: 1026 [P.O.:1020; I.V.:6] Out: 775 [Urine:775] General: Alert and awake, no distress. Pleasant and interactive. HEENT: NC. EOMI. MMM. Heart: RRR, bradycardic, normal S1, single loud S2, no murmur. Lungs: Clear bilaterally. Abdomen: Soft, non tender, non distended. Skin: clear, no rash. Groin incision c/d. Time Spent on This Encounter I, Tammy Salvador, personally saw the patient today and spent less than or equal to 30 minutes discharging this patient. Attestation: This patient has been seen and evaluated by me, Marisabel Ugarte MD. Discussed with the resident and agree with the findings and plan in this note. I have reviewed today's vital signs, medications, labs and imaging. Marisabel Ugarte MD, PhD Discharge Disposition Discharged to home Condition at discharge: Stable Consultations This Hospital Stay None Discharge Orders Reason for your hospital stay Jude was admitted for monitoring after starting metoprolol. His heart rate was low but he did well and had no symptoms. He will go home with a Holter Monitor for another 48 hrs. Activity Your activity upon discharge: activity as tolerated Follow Up and recommended labs and tests Follow-up with Dr Kimball in 10 days. Full Code Diet Follow this diet upon discharge: regular Discharge Medications Discharge Medication List as of 01/20/2016 1:48 PM START taking these medications Details metoprolol (LOPRESSOR) 25 MG tablet Take 1 tablet (25 mg) by mouth 2 times daily, Disp-60 tablet, R-1, Fax CONTINUE these medications which have CHANGED Details warfarin (COUMADIN) 5 MG tablet Take 1 tablet (5mg) every day except Saturday and Saturday. Take 1/2 tablet (2.5 mg) every Saturday and Saturday, Disp-30 tablet, Historical CONTINUE these medications which have NOT CHANGED Details digoxin (LANOXIN) 250 MCG tablet Take 1 tablet (250 mcg) by mouth daily, Disp-30 tablet, R-1, E-Prescribe spironolactone (ALDACTONE) 25 MG tablet Take 0.5 tablets (12.5 mg) by mouth daily, Disp-30 tablet, R-3, E-Prescribe lisinopril (PRINIVIL,ZESTRIL) 10 MG tablet Take 1 tablet (10 mg) by mouth daily, Disp-90 tablet, R-10, E-Prescribe dexmethylphenidate (FOCALIN XR) 15 MG 24 hr capsule Take 15 mg by mouth daily, Historical Loratadine (CLARITIN PO) Take 10 mg by mouth daily , Historical Allergies Allergies Allergen Reactions ??? Seasonal Allergies Itchy eyes, runny nose, hives when around tall grasses Data Last INR 01/19 1.22 (warfarin restarted 01/17, had been on hold from 01/14 prior to EP-study)/ documented in this encounter Medications at Time of Discharge Medication Sig Dispensed Refills Start Date End Date dexmethylphenidate (FOCALIN Take 15 mg by 0 03/13/2017 XR) 15 MG 24 hr mouth daily capsuleIndications: Reported on Hypoplastic left heart 09/14/2016 syndrome digoxin (LANOXIN) 250 MCG Take 1 tablet (250 30 tablet 1 03/05/2016 tabletIndications: SVT mcg) by mouth (supraventricular daily tachycardia) (H) lisinopril Take 1 tablet (10 90 tablet 10 02/23/2015 016 (PRINIVIL,ZESTRIL) 10 MG mg) by mouth daily [...] documented as of this encounter Progress Notes Marisabel Ugarte MD - 01/19/2016 2:00 PM CDT [facility], [place] Pediatric Cardiology Progress Note Date of Service (when I saw the patient): 01/19/2016 Assessment and Plan Jude Bills is a 15 year old male with a hx of double outlet right ventricle, left ventricular hypoplasia, d-transposition of the great vessels and pulmonary stenosis, now with non-fenestrated Fontancirculation, who is being admitted after a cardiac cath and EP study. He has had recent problems with decrased exercise tolerance. Holter EKG done in November 2015 showed 2 min of atrial tachycardia. Atrial tachycardia was induced during the EP study today and it was thought that he would benefit from starting Metoprolol. He is being admitted for monitoring for 48 hrs after starting Metoprolol. He is bradycardic, to as low as 36 overnight but has good perfusion and now symptoms. Holter EKG was set up today. FEN: ?? - Regular diet as tolerated. CV: S/p cath and EP-study. Atrial tachycardia induced. Bradycardic overnight, as low as mid-30's butwith good perfusion. - Continue Metoprolol 25 mg BID, per Dr Kimball's recommendation. - Continue home meds, including lisinopril, digoxin, spironolactone. - On telemetry. Holter EKG starting today and to continue for 48 hrs. - Daily EKG Resp: RA - Pulse ox with routine vitals. Pain: - Tylenol PRN Neuro: ADHD. - Hold ADHD medications - does not usually take them in the summer. Heme: - Coumadin per home regimen. 2.5mg W/Sat. 5mg all other days. ?? - INR. Goal 2-2.5, indication atrial arrythmia. Dispo: Likely home tomorrow. Tammy Salvador MD, PL-3 Attestation: This patient has been seen and evaluated by me, Marisabel Ugarte MD. Discussed with the resident and agree with the findings and plan in this note. I have reviewed today's vital signs, medications, labs and imaging. Marisabel Ugarte MD, PhD Interval History No concerns from patient or family overnight. Had bradycardia to 36 beats/hr, but good perfusion andBPs wnl. Physical Exam Temp: 97.9 ??F (36.6 ??C) Temp src: Oral BP: 103/51 mmHg Heart Rate: 44 Resp: 20 SpO2: 95 % O2 Device: None (Room air) Oxygen Delivery: 1 LPM Filed Vitals: 01/18/16 0650 01/19/16 0655 Weight: 55.5 kg (122 lb 5.7 oz) 56 kg (123 lb 7.3 oz) Vital Signs with Ranges Temp: [97 ??F (36.1 ??C)-98.1 ??F (36.7 ??C)] 97.9 ??F (36.6 ??C) Heart Rate: [36-63] 44 Resp: [11-20] 20 BP: (93-109)/(46-57) 103/51 mmHg SpO2: [87 %-99 %] 95 % I/O last 3 completed shifts: In: 1729.75 [P.O.:1038; I.V.:691.75] Out: 1560 [Urine:1500; Blood:60] General: In bed, awake and alert, answer questions appropriately. HR on monitor fluctuating beteeen 36 and 48. HEENT: Normocephalic. PERRLA. No nasal congestion. MMM. Heart: RRR, normal S1, single, loud S2, no murmur. Normal peripheral pulses, warm feet. Lungs: Clear breath sounds bilaterally. Abdomen: Soft, non tender, non distended. Groin incision c/d. Medications ??? warfarin 5 mg Oral ONCE at 18:00 ??? metoprolol 25 mg Oral BID ??? lisinopril 10 mg Oral Daily ??? sodium chloride (PF) 3 mL Intracatheter Q8H ??? spironolactone 25 mg Oral Daily ??? digoxin 250 mcg Oral Daily ??? loratadine 10 mg Oral Daily Data All data reviewed. Pastora Santoyo RN - 01/18/2016 10:49 PM CDT 1L NC removed per SANDOR Arnold, resident. Will continue to monitor. Tamara Sampson [facility] - 01/18/2016 10:29 AM CDT 01/18/16 1023 Child Life Location Surgery (heart cath , Ep study, Ep ablation) Preparation Comment This report writer introduced self and role to pt/family in waiting area. It was identified pt has had a lot of preparation, talk/discussion and asked if there were thoughts/concerns. He said no, didn't want fo review but did indicate he refers no numbing agent for IV start. Family Support Comment Parents are present. Pt often let mother speak for him and he indicated that he liked it like that. Father indicated pt is a lot like me anxious. He would need a valium before going to OR. They were told to talk with anesthesia and the information would be relayed to the preop RN. (See note) Growth and Development Comment appears age appropriate but not formally assessed Anxiety Appropriate Techniques Used to [place]/Comfort/Calm family presence;medication;other (see comments) (pt benefits from hearing reassurances or information in reassuring manner) Special Interests has his phone for distraction as needed Outcomes/Follow Up Provided Materials D/I: Pt may appear calm when first met or hearing information but is prone to anxiety. For example, when asked if he played the [employer] Go he said no, it was weird. Then stated, too many people from it. When asked to explain, he said You can get kidnapped. His dad said he didn't think so and pt retorted, Yeah, well, look it up on the internet. This report writer commented that the internet is not totally reliable for accurate information. Dad stated there were more stories on the internet than information. Pt appeared disgusted and withdrew from the conversation. A/P: Pt benefits from hearing accurate information, from reliable or trusted resources. Information presented with reassurances of support or positive outcomes following will provide pt the most support. Aleyda Howe MD - 01/18/2016 9:39 AM CDT [facility] Pre cath progress note Jude Bills 15 year old 2000 [id number] Magda Winchester HPI: Jude Bills is a 15 year old old child with DORV, d-TGA, hypoplastic LV s/p bidirectional Fortino and extracardiac Fontan, with device closure of Fontan fenestration here for a cardiac catheterization, full hemodynamic and angiographic assessment and possible balloon dilation/stent placement, possible collateral closure today. The anticipated cath site was inspected, and there is no evidence of infection. Patient was examined and consented. Risks and benefits of procedure were explained in detail and allquestions were answered. Ok to proceed with procedure at this time. EP study to follow cath procedure to evaluate for SVT on recent Xiopatch. Soo Srivastava MD Fellow, Cardiology Pager: [phone] [facility] documented in this encounter H&P Notes Marisabel Ugarte MD - 01/18/2016 1:24 PM CDT [facility] History and Physical Pediatric Cardiology Date of Admission: 01/18/2016 Date of Service (when I saw the patient): 01/18/2016 Assessment and Plan Jude Bills is a 15 year old male with a hx of double outlet right ventricle, left ventricular hypoplasia, d-transposition of the great vessels and pulmonary stenosis, now with non-fenestrated Fontancirculation, who is being admitted after a cardiac cath and EP study. He has had recent problems with decrased exercise tolerance. Holter EKG done in November 2015 showed 2 min of atrial tachycardia. Atrial tachycardia was induced during the EP study today and it was thought that he would benefit from starting Metoprolol. Jude requires admission for monitoring while starting Metoprolol due to his sick sinus syndrome. He has a basic heart rate as los as high 30's and needs close monitoring in the hospital. FEN: - Regular diet as tolerated. CV: S/p cath and EP-study. Atrial tachycardia. - Start metoprolol tonight, 25 mg once daily in evening - Restart home meds, including lisinopril, digoxin, spironolactone. - On telemetry. - EKG today, Holter to be placed at noon tomorrow. Resp: RA - Pulse ox with routine vitals. Pain - tylenol PRN Neuro: ADHD. - Hold ADHD medications - does not usually take them in the summer. Heme - restart home coumadin tonight. 2.5mg W/Sat. 5mg every other day. - continue to monitor INR. Goal 2-2.5 Dispo: Likely home after 48 hrs monitoring. [facility] Attestation: This patient has been seen and evaluated by me, Marisabel Ugarte MD. Discussed with the resident and agree with the findings and plan in this note. I have reviewed today's vital signs, medications, labs and imaging. Marisabel Ugarte MD, PhD Primary Care Physician Magda Winchester Chief Complaint Tachycardia, decreased exercise tolerance. History of Present Illness Jude Bills is a 15 year old male complex cyanotic heart disease, including double outlet right ventricle, left ventricular hypoplasia, d-transposition of the great vessels and pulmonary stenosis. Heunderwent a central shunt, followed by a Fortino procedure and completion of a Fontan procedure at [facility] [address] in ambulance assistant. He had catheter closure of his Fontan fenestration at the [facility] in January 2007. He has been followed annually and has been doing quite well, however this spring has developed decreasing exercise tolerance as well as intermittent LLE swelling. He had a Holter in November 2015 which revelead two minutes of supraventricular tachycardia. He had a cath today during which an atrial tachycardia was induced. After the cath the decision was made to start him on Metoprolol and admit him for 48hrs monitoring. Jude's cardiac medications at home include warfarin, lisinopril, digoxin and spironolactone. He takes focalin for ADHD. Past Medical History I have reviewed this patient's medical history and updated it with pertinent information if needed. Past Medical History Diagnosis Date ??? 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 Esophageal reflux ??? Congenital anomalies of spleen Polysplenia Past Surgical History I have reviewed this patient's surgical history and updated it with pertinent information if needed. Past Surgical History Procedure Laterality Date ??? C repr by modified fontan fenestrated fontan ??? 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 ? Hc circumcision surgical non-dev >28 days age 2004 Immunization History Immunization Status: up to date and documented Prior to Admission Medications Prior to Admission Medications Prescriptions Last Dose Informant Patient Reported? Taking? Loratadine (CLARITIN PO) Yes Yes Sig: Take 10 mg by mouth daily dexmethylphenidate (FOCALIN XR) 15 MG 24 hr capsule Yes Yes Sig: Take 15 mg by mouth daily digoxin (LANOXIN) 250 MCG tablet 01/17/2016 at Unknown time No Yes Sig: Take 1 tablet (250 mcg) by mouth daily lisinopril (PRINIVIL,ZESTRIL) 10 MG tablet 01/16/2016 No Yes Sig: Take 1 tablet (10 mg) by mouth daily spironolactone (ALDACTONE) 25 MG tablet 01/17/2016 at Unknown time No Yes Sig: Take 0.5 tablets (12.5 mg) by mouth daily warfarin (COUMADIN) 2 MG tablet 01/15/2016 No Yes Sig: Take one tablet every Saturday, Saturday, Saturday Patient taking differently: Take 2.5 mg by mouth 2.5 mg every Saturday and Saturday warfarin (COUMADIN) 4 MG tablet 01/15/2016 No Yes Sig: Take one tablet on Saturday, , Saturday, and Saturday Patient taking differently: 5 mg Takes 5mg per day except Saturday and saturday Facility-Administered Medications: None Allergies Allergies Allergen Reactions ??? Seasonal Allergies Itchy eyes, runny nose, hives when around tall grasses Social History I have updated and reviewed the following Social History Narrative: Social History Social History Narrative Jude lives at home with parents, was adopted as an . Family History I have reviewed this patient's family history and updated it with pertinent information if needed. Family History Problem Relation Age of Onset ??? Adopted: Yes ??? Unknown/Adopted child adopted from [place] at 10mo of age ??? Unknown/Adopted ??? Unknown/Adopted Review of Systems CONSTITUTIONAL: negative for fevers, fatigue and weight loss HEENT: negative for nasal congestion and sore throat RESPIRATORY: negative for cough CARDIOVASCULAR: negative for chest pain, dyspnea, palpitations GASTROINTESTINAL: negative for nausea, vomiting, diarrhea and abdominal pain NEUROLOGICAL: negative for headaches and dizziness BEHAVIOR/PSYCH: negative for depressed mood, fatigue and anxiety Physical Exam Temp: 97 ??F (36.1 ??C) Temp src: Axillary BP: 100/53 mmHg Heart Rate: 60 Resp: 16 SpO2: 100 % O2 Device: None (Room air) Oxygen Delivery: 1 LPM Vital Signs with Ranges Temp: [96.8 ??F (36 ??C)-97.5 ??F (36.4 ??C)] 97 ??F (36.1 ??C) Heart Rate: [49-67] 60 Resp: [12-20] 16 BP: (100-117)/(53-89) 100/53 mmHg SpO2: [98 %-100 %] 100 % 122 lbs 5.68 oz GENERAL: Active, alert, in no acute distress. Quiet but answers questions appropriately. SKIN: Clear. No significant rash, abnormal pigmentation or lesions. HEAD: Normocephalic. EYES: Normal conjunctivae. NOSE: Normal without discharge. MOUTH/THROAT: Clear. No oral lesions. Teeth without obvious abnormalities. LUNGS: Clear. No rales, rhonchi, wheezing or retractions. HEART: Large vertical scar over the sternum. Regular rhythm. Normal S1/S2. 2/6 mid systolic murmur. Normal pulses. ABDOMEN: Soft, non-tender. Bowel sounds normal. NEUROLOGIC: No focal findings. Cranial nerves grossly intact. Normal strength and tone. EXTREMITIES: Full range of motion, no deformities. Cap refill 2+ Data Results for orders placed or performed during the hospital encounter of 01/18/16 (from the past 24 hour(s)) EKG 12 lead - pediatric Result Value Ref Range Interpretation ECG Click View Image link to view waveform and result ABO/Rh type and screen Result Value Ref Range Units Ordered 2 ABO AB RH(D) Pos Antibody Screen Neg Test Valid Only At [facility] Specimen Expires 01/21/2016 Crossmatch Red Blood Cells INR Result Value Ref Range INR 1.38 (H) 0.86 - 1.14 Blood component Result Value Ref Range Unit Number [id number] Blood Component Type Red Blood Cells Leukocyte Reduced Division Number 00 Status of Unit No longer available 01/18/2016 1250 Blood Product Code [id number] Unit Status RET Blood component Result Value Ref Range Unit Number [id number] Blood Component Type Red Blood Cells Leukocyte Reduced Division Number 00 Status of Unit No longer available 01/18/2016 1250 Blood Product Code [id number] Unit Status RET Digoxin level Result Value Ref Range Digoxin Level 1.6 0.5 - 2.0 ug/L Arterial Panel Result Value Ref Range pH Arterial 7.30 (L) 7.35 - 7.45 pH pCO2 Arterial 52 (H) 35 - 45 mm Hg pO2 Arterial 80 80 - 105 mm Hg Bicarbonate Arterial 25 21 - 28 mmol/L Base Deficit Art 1.3 mmol/L FIO2 21.0 Sodium 139 133 - 143 mmol/L Potassium 3.9 3.4 - 5.3 mmol/L Hemoglobin 14.8 11.7 - 15.7 g/dL Glucose 118 (H) 70 - 99 mg/dL Calcium Ionized Whole Blood 5.0 4.4 - 5.2 mg/dL Chloride whole blood Result Value Ref Range Chloride 106 96 - 110 mmol/L Lactic acid whole blood Result Value Ref Range Lactic Acid 1.2 0.7 - 2.1 mmol/L Oxyhemoglobin Result Value Ref Range Oxyhemoglobin Arterial 93 92 - 100 % Arterial Panel Result Value Ref Range pH Arterial 7.31 (L) 7.35 - 7.45 pH pCO2 Arterial 49 (H) 35 - 45 mm Hg pO2 Arterial 68 (L) 80 - 105 mm Hg Bicarbonate Arterial 24 21 - 28 mmol/L Base Deficit Art 2.0 mmol/L FIO2 21.0 Sodium 139 133 - 143 mmol/L Potassium 3.9 3.4 - 5.3 mmol/L Hemoglobin 14.6 11.7 - 15.7 g/dL Glucose 124 (H) 70 - 99 mg/dL Calcium Ionized Whole Blood 5.0 4.4 - 5.2 mg/dL Chloride whole blood Result Value Ref Range Chloride 106 96 - 110 mmol/L Lactic acid whole blood Result Value Ref Range Lactic Acid 1.2 0.7 - 2.1 mmol/L Oxyhemoglobin Result Value Ref Range Oxyhemoglobin Arterial 90 (L) 92 - 100 % Activated clotting time POCT Result Value Ref Range Activated Clot Time 242 (H) 105 - 167 sec Activated clotting time POCT Result Value Ref Range Activated Clot Time 238 (H) 105 - 167 sec Activated clotting time POCT Result Value Ref Range Activated Clot Time 207 (H) 105 - 167 sec EKG 12 lead - pediatric Result Value Ref Range Interpretation ECG Click View Image link to view waveform and result ABO/Rh type and screen - PCU collect line draw Result Value Ref Range ABO Canceled, Test credited RH(D) Canceled, Test credited Antibody Screen Canceled, Test credited Test Valid Only At Not done Specimen Expires 01/21/2016 Blood Bank Comment Duplicate request documented in this encounter Nursing Notes Diana Wheeler RN - 01/18/2016 3:20 PM CDT Telephone report and transfer of care to Pastora Almeida RN Will transfer to room 6143 just after 1530 Diana Wheeler RN - 01/18/2016 2:40 PM CDT Pressure assistive device removed, site had scant ammt of dried blood and negligible moist drainage,bandaid applied, Tray of food pending, pt relaxing watching amovie, Diana Wheeler RN - 01/18/2016 2:15 PM CDT Pressure device is completely deflated, will remove with adhesive remover at the 4 hour unique which will be 2:45PM Diana Wheeler RN - 01/18/2016 1:[address] Eubanks updated that pt is awake, taking oral liquids, BP is 89/51 mean 67, pulse is 44-[address] aware that pt had 209ml IV intake for procedure, No orders received, anesthesia sign out requested. Waiting for room to be ready. Blue Leather Sorter is releading air from right groin safeguard pressure assistive device, groin site has small ammt of blood under devicen no swelling around site nor oozing Great peripheral pulses. Delicia Ashley RN - 01/18/2016 1:32 PM CDT Transfer of care given to Diana Wheeler RN documented in this encounter Miscellaneous Notes Plan of Care - Faith Weinstein RN - 01/20/2016 2:08 PM CDT Problem: Goal Outcome Summary Goal: Goal Outcome Summary Outcome: Adequate for Discharge Date Met: 01/20/16 Afebrile, HR 40's awake. Per MD, ok to give Metoprolol. Other VSS. Groin site C/D/I. C/o headache. PRN Tylenol x1 with adequate relief. Discharged to home at 2pm with mom and dad. Pharmacy - Discharge Medication Reconciliation and Education - Kg Dominguez [facility] - 01/20/2016 11:31 AM CDT Discharge medication review for this patient completed. Pharmacist provided medication teaching for discharge with a focus on new medications/dose changes. The discharge medication list was reviewed with Mom, Dad & Luke and the following points were discussed, as applicable: Name, description, purpose, dose/strength, strategies for giving medications to children, common side effects, food/medications to avoid, when to call MD and how to obtain refills. Mom was engaged during teaching and verbalized understanding. Updated Warfarin on medlist since family only takes as 5 mg tablets. Verified home dose of Aldactone as 12.5 mg daily. All medications were in hand during teaching. Medication(s) left with family in patient room per RN request. The following medications were discussed: Current Discharge Medication List START taking these medications Details metoprolol (LOPRESSOR) 25 MG tablet Take 1 tablet (25 mg) by mouth 2 times daily Qty: 60 tablet, Refills: 1 Associated Diagnoses: Hypoplastic left heart syndrome CONTINUE these medications which have CHANGED Details warfarin (COUMADIN) 5 MG tablet Take 1 tablet (5mg) every day except Saturday and Saturday. Take 1/2 tablet (2.5 mg) every Saturday and Saturday Qty: 30 tablet Associated Diagnoses: Hypoplastic left heart syndrome CONTINUE these medications which have NOT CHANGED Details digoxin (LANOXIN) 250 MCG tablet Take 1 tablet (250 mcg) by mouth daily Qty: 30 tablet, Refills: 1 Associated Diagnoses: SVT (supraventricular tachycardia) (H) spironolactone (ALDACTONE) 25 MG tablet Take 0.5 tablets (12.5 mg) by mouth daily Qty: 30 tablet, Refills: 3 Associated Diagnoses: Hypoplastic left heart syndrome lisinopril (PRINIVIL,ZESTRIL) 10 MG tablet Take 1 tablet (10 mg) by mouth daily Qty: 90 tablet, Refills: 10 Associated Diagnoses: Hypoplastic left heart syndrome dexmethylphenidate (FOCALIN XR) 15 MG 24 hr capsule Take 15 mg by mouth daily Associated Diagnoses: Hypoplastic left heart syndrome Loratadine (CLARITIN PO) Take 10 mg by mouth daily I spent approximately 15 minutes in patient's room doing discharge medication teaching. Plan of Care - Catarina Santiago RN - 01/20/2016 7:47 AM CDT Problem: Goal Outcome Summary Goal: Goal Outcome Summary Outcome: No Change Jude was afebrile overnight and denied pain. Continued to be bradycardic (see provider notification)with lowest HR overnight = 34. No desats overnight. Continued holter monitoring. Lab scheduled this morning. Plan is to discharge today. Parents are at bedside. Provider Notification - Catarina Santiago RN - 01/20/2016 4:06 AM CDT 01/20/16 0300 Vitals Heart Rate 34 Heart Rate/Source Monitor Assessed patient. Warm, cap refill fine, pulses good. Notified team. Dr. Arnold returned the call. Will continue to monitor. Plan of Care - Gayathri Burleson RN - 01/19/2016 9:31 PM CDT Problem: Goal Outcome Summary Goal: Goal Outcome Summary Outcome: No Change VSS, afebrile pt remains bradycardic. Pt complained of quick sharp pain in chest at 1530. Pt stated he had this pain before and quickly subsided. [place] team aware and came to assess. Metoprolol given,double checked with orange team before admin. Good intake/output. Mom and dad at bedside. Hourly rounding completed; continue to monitor. Plan of Care - Dalila Stephens RN - 01/19/2016 1:14 PM CDT Problem: Individualization Goal: Patient Preferences Outcome: No Change Bradycardic as low as 42 today. Other VSS, no complaints of pain, on room air with good oxygen saturations. Metoprolol given per Dr. Kimball's recommendation. Holter monitor placed a noon. Good intake and urine output. Mom at bedside participating in cares. Will continue to monitor and assess. Utilization Review - Luba Merchant MD - 01/19/2016 12:11 PM CDT Admission Status; Secondary Review Determination Under the authority of the Utilization Management Committee, the utilization review process indicated a secondary review on the above patient. The review outcome is based on review of the medical records, discussions with staff, and applying clinical experience noted on the date of the review. (X) Inpatient Status Appropriate - This patient's medical care is consistent with medical managementfor inpatient care and reasonable inpatient medical practice. () Observation Status Appropriate - This patient does not meet hospital inpatient criteria and is placed in observation status. If this patient's primary payer is Medicare and was admitted as an inpatient, Condition Code 44 should be used and patient status changed to observation. () Admission Status NOT Appropriate - This patient's medical care is not consistent with medical management for Inpatient or Observation Status. 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 He has had recent problems with decrased exercise tolerance. Holter EKG done in November 2015 showed 2 min of atrial tachycardia. Atrial tachycardia was induced during the EP study today and it was thought that he would benefit from starting Metoprolol. He is being admitted for monitoring for 48 hrs after starting Metoprolol, with a Holter. FOR THIS ADMISSION: FEN: - Regular diet as tolerated. CV: S/p cath and EP-study. Atrial tachycardia. - Start metoprolol tonight, 25 mg once daily in evening - Restart home meds, including lisinopril, digoxin, spironolactone. - On telemetry. - EKG today, Holter to be placed at noon tomorrow. Resp: RA - Pulse ox with routine vitals. Pain - tylenol PRN Neuro: ADHD. - Hold ADHD medications - does not usually take them in the summer. Heme - restart home coumadin tonight. 2.5mg W/Sat. 5mg every other day. - continue to monitor INR. Goal 2-2.5 Pt is a 15yo male with complicated PMH including DORV and single vent with already attempted outpatient workup and now with arrhythmia induced in EP study. Jude requires admission for continuous monitoring while starting Metoprolol due to his sick sinus syndrome. He has a basic heart rate as los as high 30's and needs continuous monitoring given risk of sudden cardiac event, requiring 2 midnight stayfor titration of po medications. The information on this document is developed by the utilization review team in order for the business office to ensure compliance. This only denotes the appropriateness of proper admission status and does not reflect the quality of care rendered. The definitions of Inpatient Status and Observation Status used in making the determination above are those provided in the CMS Coverage Manual, Chapter 1 and Chapter 6, section 70.4. Sincerely, Luba Merchant MD Panel Sewer, Utilization Review/ Case Management [facility] Admission Status; Secondary Review Determination jose [phone] office [phone] Plan of Care - Catarina Santiago RN - 01/19/2016 5:13 AM CDT Problem: Goal Outcome Summary Goal: Goal Outcome Summary Outcome: No Change Jude was afebrile overnight. He did have periods of desats to 87-89% with quick recovery. He also had HR dips as low as 36 (see notification note). Plan is for a holter monitor today. Parents are at bedside and are attentive to patient. Provider Notification - Catarina Santiago RN - 01/19/2016 3:13 AM CDT 01/19/16 0245 Vitals Heart Rate 37 Assessed patient. Cap refill and pulses good. Notified team. Dr. Arnold came to assess. Will continue to monitor. Plan of Care - Pastora Santoyo RN - 01/18/2016 10:33 PM CDT Problem: Goal Outcome Summary Goal: Goal Outcome Summary Outcome: No Change Pt arrived to floor shortly after 1530. Afebrile. Bradycardic: 50-60's. Pt having desats to high-80's lasting a few seconds and then self resolving. Team was present when desats occurred during eveningrounds. 1L nc applied and pt satting in mid-90's. LS clear. No c/o pain. Good intake. Good UOP. No changes to R groin; no bleeding or hematomas noted. Metoprolol started this evening; orange team awaremed was given even though his HR was in the 50's-60's. Plan for Holtier monitor tomorrow. Parents atbedside and participating in cares. Hourly rounding completed. Brief Op Note - Chari Kimball MD - 01/18/2016 11:02 AM CDT [facility] [place] BRIEF POST-PROCEDURE NOTE Pre-procedure diagnosis 1. DORV, d-TGA, hypoplastic left ventricle, s/p bidirectional Fortino and extracardiac Fontan, s/p device closure of Fontan fenestration 2. SVT on Ziopatch Post-procedure diagnosis same Procedure 1. Electrophysiology study Staff Dr Kimball Parking Lot Manager(s) Natalia Conner Anesthesia general anesthesia via LMA Access 7F RFV, 5F RFA Specimens None IV contrast 0 mL Heparinized Yes Blood loss 3 mL Complications None Preliminary findings: ?? Long RP atrial tachycardia was induced with Isuprel and baseline HR 120 with double stimulation at 400/220/220 ?? Cycle length of tachycardia was 283 ms with 1:1 conduction RP 157 ms, GA 125 ms. ?? Tachycardia spontaneously terminated with ventricular electrogram Plan: 1. Transfer to PACU 2. Admit to 6th floor after bedrest complete in PACU due to single ventricle physiology and needs franck monitored on telemetry while being started on Metoprolol therapy 3. Start Metoprolol 25 mg PO QD from tonight 4. EKG today 5. Holter monitor to be started tomorrow afternoon. Soo Sriavstava MD Pediatric Cardiology [facility] This patient has been seen and evaluated by me, CHARI KIMBALL MD, GARCIA, MS. I have reviewed today's vital signs, accessed lines & tubes, medications, labs and imaging results. The patient's clinical picture, laboratory results, and tests were reviewed with the team and a treatment plan was formulated according to the assessments and plans as noted above. The plan for the dayand the near future was discussed with the house staff team or resident(s) and I agree with the findings and plan in this note. About 35 minutes of time was spent with the family and available caregivers to discuss the plan for the day and the future. Op Note - Chari Kimball MD - 01/18/2016 9:52 AM CDT PEDIATRIC CARDIAC ELECTROPHYSIOLOGY [address] [place] [address] ELECTROPHYSIOLOGY PROCEDURE NOTE Name: Jude Bills Date of : 2000 Date of Procedure: 01/18/2016 Attending: Chari Kimball MD Parking Lot Manager: Natalia Jasso Fellow: Aleyda Vann MD Referring: Cordell Juarez MD INTRODUCTION/HISTORY: Jude Bills is a 15 year old male with DORV, d-TGA, hypoplastic left ventricle s/p bidirectional Fortino and Fontan now with intermittent exercise intolerance and recent Xiopatch findings of SVT with possible aberrancy. In the past 6 months the patient reports: Jude Bills has experienced Fatigue every At least once per month. The Fatigue is the most severe/unpleasant. Treatment for these symptoms have included Self resolving. Jude Bills does not feel that their rhythm problem has interfered with how well they are able to work, go to school or play. Family history is noncontributory. Social history reveals that the patient lives at home with parents. Allergies: Allergies Allergen Reactions ??? Seasonal Allergies Itchy eyes, runny nose, hives when around tall grasses Immunizations are up to date as per mom. Medications: Current Facility-Administered Medications Medication ??? dexmedetomidine (PRECEDEX) 4 mcg/mL in NaCl 0.9 % 50 mL infusion Facility-Administered Medications Ordered in Other Encounters Medication ??? glycopyrrolate (ROBINUL) injection ??? propofol (DIPRIVAN) injection 10 mg/mL vial ??? lactated ringers infusion ??? midazolam (VERSED) injection ??? propofol (DIPRIVAN) infusion ??? heparin (porcine) injection ??? lidocaine injection 2% (MDV) ??? lactated ringers infusion Temp: 97.5 ??F (36.4 ??C) Temp src: Oral BP: 117/89 mmHg Pulse: 49 Heart Rate: 49 Resp: 20 SpO2: 98 % (Room Air) Weight: 55 kg In general, he is a very well-appearing young man with no central or peripheral cyanosis. Head and neck examination is unremarkable. Pupils are reactive and sclera are not jaundiced.?? There is no conjunctival injection or discharge.?? Mucous membranes are moist and pink.?? Lungs are clear to auscultation bilaterally. He [...] moves all extremities equally with normal tone. PROCEDURE: The patient was transported to the electrophysiology laboratory by Anesthesia. The procedure was performed under monitored anesthesia care. The catheter insertion sites were prepped and draped in sterile fashion. Local anesthesia was achieved with 1% lidocaine/bupivicaine (50%/50% mixture). Hemostaticsheaths were placed percutaneously into vasculature utilizing the Seldinger technique. Electrode catheters were positioned using fluoroscopic guidance as follows: DIAGNOSTIC CATHETER #ELECTRODES INSERTION SITE VASCULAR SITE 6 F steerable 4 R femoral vein Fontan conduit Arterial line R femoral artery At the end of the procedure, all electrode catheters and introducers were removed. Hemostasis was achieved with direct digital pressure, and the insertion sites were bandaged. NON-ANTIARRHYTHMIC MEDICATIONS GIVEN DURING STUDY: As per anesthesia records. FLUIDS GIVEN DURING STUDY: As per anesthesia. COMPLICATIONS: None FINDINGS: SPONTANEOUS DATA (in ms. baseline): Rhythm Sinus @ 68 BPM QRS morphology Wide QRS axis Abnormal Cycle length 894 GA interval 149 QRS duration 114 QT interval 279 AH interval - HV interval - Comments: Sinus rhythm at baseline with normal AV node conduction ANTEGRADE CONDUCTION (in ms, baseline): Pacing site HRA Paced CL's 600 - 290 APBCL Not present AVNWBCL 290 Comments: Antegrade conduction was not decremental. Ventricular pre-excitation was not present. ANTEGRADE CONDUCTION (in ms on Isuprel): Pacing site HRA Paced CL's 400 - 230 APBCL - AVNWBCL 240 Comments: Antegrade conduction was not decremental. Ventricular pre-excitation was not present. Long RP atrial tachycardia was induced with Isuprel. ANTEGRADE REFRACTORY PERIODS (in ms, baseline): Pacing site HRA HRA Drive CL 600 400 AVN FRP - - AVN ERP - 290 AVN ERP (fast) 310 (QD=025 ms) - AVN ERP (slow) < 290 (UG=926 ms) - AP ERP Not present Not present AERP 270 270 Comments: Infranodal block was not observed. There was evidence of dual AVN physiology, antegradely at paced cycle length of 600. There was no inducible tachycardia. ANTEGRADE REFRACTORY PERIODS (in ms on Isuprel): Pacing site HRA Drive CL 400 AVN FRP - AVN ERP <240 AVN ERP (fast) Not present AVN ERP (slow) Not present AP ERP Not present AERP 240 Comments: Infranodal block was not observed. There was no evidence of dual AVN physiology, antegradely while on Isuprel. RETROGRADE CONDUCTION (baseline): Comments: This was not evaluated due to Fontan physiology. RETROGRADE REFRACTORY PERIODS (baseline): Comments: This was not evaluated due to Fontan physiology. RETROGRADE REFRACTORY PERIODS (baseline, on Isuprel) Comments: This was not evaluated due to Fontan physiology. SNRT (sinus node recovery time): Sinus cycle length Paced cycle length PPI Corrected SNRT 717 181 6919 153 222 410 6958 135 652 420 3159 192 299 654 1809 111 443 948 7627 106 692 795 3033 362 027 571 2334 1192 534 993 2550 1212 SVT Long RP atrial tachycardia was induced with Isuprel and baseline HR 120 with double stimulation at 400/220/220. Cycle length of tachycardia was 283 ms with 1:1 conduction RP 157 ms, GA 125 ms. Tachycardia spontaneously terminated with ventricular electrogram MAPPING PROCEDURE Limited mapping was performed with a quadripolar 6 Fr steerable catheter. TRANSSEPTAL A transseptal procedure was not performed. ABLATION PROCEDURE There was no ablation performed. Tachyarrythmias observed during EP study: Long RP atrial tachycardia=Ectopic atrial tachycardia Imaging systems used: No mapping Target Counter Indications for Ablation: Not performed Approach to Target: NA Targeted Substrate:NA Target Location ID:NA Methods to localize Target: NA Ablation Attempted? No: Not clinical tachycardia Outcome of targeted substrate: NA Conclusions: 1. Double outlet right ventricle, left ventricular hypoplasia, d-TGA and pulmonary atresia. 2. Bidirectional Fortino and extracardiac Fontan 3. Device closure of Fontan fenestration 4. - s/p EPS 01/18/2016 for non sustained atrial tachycardia documented by Ziopatch Recordings. - Normal AV node function with dual AV node physiology at baseline and no inducible AVNRT on and off Isuprel. - Non specific atrial tachycardia induced at cycle length 283 and with atrial double extra stimulation (400/220/220) with spontaneous termination with ventricular electrogram once Isuprel was turned off. Recommendations: 1. Transfer to PACU and adm to 6th floor for overnight observation for monitoring while Metoprolol started. 2. F/U with Dr. Kimball in clinic 7-10 days 3. ECG prior to discharge 4. Recommend starting low dose Metoprolol. Electronically signed [January 18, 2016 at 9:52 AM] by: Chari Kimball M.D., MS, GARCIA Associate Clinical Professor of Pediatrics Pediatric Cardiology and Pediatric Critical Care Medicine Director of Pediatric Cardiac Electrophysiology Billing codes: Diagnostic study 60060 Comprehensive EP study 89621 Isuprel administration 84810 Atrial pacing 88914 Induction of arrhythmia by pacing 81621 Tachycardia mapping This patient has been seen and evaluated by me, CHARI KIMBALL MD, GARCIA, MS. I have reviewed today's vital signs, accessed lines & tubes, medications, labs and imaging results. The patient's clinical picture, laboratory results, and tests were reviewed with the team and a treatment plan was formulated according to the assessments and plans as noted above. The plan for the dayand the near future was discussed with the house staff team or resident(s) and I agree with the findings and plan in this note. About 35 minutes of time was spent with the family and available caregivers to discuss the plan for the day and the future. Brief Op Note - Aleyda Howe MD - 01/18/2016 9:42 AM CDT [facility] BRIEF POST-PROCEDURE NOTE Pre Cath CRISP score 3 Risk Category 2 Pre-procedure diagnosis DORV, d-TGA, hypoplastic LV s/p bidirectional Fortino and extracardiac Fontan,s/p device closure of Fontan fenestration Post-procedure diagnosis same Procedure 1. right and retrograde left heart cath 2. angiography Staff Dr. Kathleen Parking Lot Manager(s) Natalia Conner Anesthesia general anesthesia via LMA Access 7F RFV, 5F RFA Specimens None IV contrast 114 mL Heparinized Yes Blood loss 3 mL Complications None Preliminary findings: ?? Fontan pressures mildly elevated 15 ?? Wedge pressures 9-10, high normal ?? Wedge pressures equal to RVEDP excluding restrictive atrial level communication, pulmonary vein stenosis or AV valve stenosis ?? RVEDP normal Plan: EP study to follow cath procedure Soo Srivastava MD Pediatric Cardiology [facility] documented in this encounter Plan of Treatment Upcoming Encounters Date Type Specialty Care Team Description 07/27/2022 Ancillary Procedure Cardiology Cordell Juarez MD [facility] [address] [address] (Wo rk) 07/27/2022 Office Visit [facility]iology [facility] [address] [id number] (Wo rk) documented as of this encounter Procedures Procedure Name Priority Date/Time Associated Comments Diagnosis INR Routine 01/20/2016 7:56 Results for this AM CDT procedure are i n the results section. INR Routine 01/19/2016 3:29 Results for this PM CDT procedure are i n the results section. HOLTER MONITOR SET UP 48 Routine 01/19/2016 12:00 Results for this HOUR - PEDIATRIC PM CDT procedure a re in the results section. EKG 12 LEAD - PEDIATRIC Routine 01/19/2016 10:27 Results for this AM CDT procedure are i n the results section. ABO/RH TYPE AND SCREEN STAT 01/18/2016 12:47 R esults for this PM CDT procedure are i n the results section. EKG 12 LEAD - PEDIATRIC Routine 01/18/2016 11:56 Results for this AM CDT procedure are i n the results section. PEDS EP STUDY/ABLATION Routine 01/18/2016 10:54 R esults for this AM CDT procedure are i n the results section. ACTIVATED CLOTTING TIME Routine 01/18/2016 10:43 Results for this POCT AM CDT procedure are i n the results section. ACTIVATED CLOTTING TIME Routine 01/18/2016 9:34 R esults for this POCT AM CDT procedure are i n the results section. PEDS HEART CATH Routine 01/18/2016 9:30 Results f or this AM CDT procedure are i n the results section. ACTIVATED CLOTTING TIME Routine 01/18/2016 9:08 R esults for this POCT AM CDT procedure are i n the results section. ARTERIAL PANEL Routine 01/18/2016 8:46 Results fo r this AM CDT procedure are i n the results section. OXYHEMOGLOBIN, ARTERIAL Routine 01/18/2016 8:46 R esults for this AM CDT procedure are i n the results section. LACTIC ACID WHOLE BLOOD Routine 01/18/2016 8:46 R esults for this AM CDT procedure are i n the results section. CHLORIDE WHOLE BLOOD Routine 01/18/2016 8:46 Resu lts for this AM CDT procedure are i n the results section. ARTERIAL PANEL Routine 01/18/2016 8:36 Results fo r this AM CDT procedure are i n the results section. OXYHEMOGLOBIN, ARTERIAL Routine 01/18/2016 8:36 R esults for this AM CDT procedure are i n the results section. LACTIC ACID WHOLE BLOOD Routine 01/18/2016 8:36 R esults for this AM CDT procedure are i n the results section. CHLORIDE WHOLE BLOOD Routine 01/18/2016 8:36 Resu lts for this AM CDT procedure are i n the results section. DIGOXIN LEVEL STAT 01/18/2016 7:36 Results for this AM CDT procedure are i n the results section. CARDIAC ELECTROPHYSIOLOGY 01/18/2016 7:30 Double Outle ft STUDY, WITH ABLATION, AM CDT Right Ventricle, PEDIATRIC Left Ventricle Hypoplastic CARDIAC ELECTROPHYSIOLOGY 01/18/2016 7:30 Double Outle ft STUDY, PEDIATRIC AM CDT Right Ventricle, Left Ventricle Hypoplastic CATHETERIZATION, CARDIAC, 01/18/2016 7:30 Double Outle ft CHILD AM CDT Right Ventricle, Left Ventricle Hypoplastic BLOOD COMPONENT Routine 01/18/2016 7:30 Results f or this AM CDT procedure are i n the results section. BLOOD COMPONENT Routine 01/18/2016 7:30 Results f or this AM CDT procedure are i n the results section. INR STAT 01/18/2016 7:30 Results for this AM CDT procedure are i n the results section. ABO/RH TYPE AND SCREEN STAT 01/18/2016 7:30 Re sults for this AM CDT procedure are i n the results section. EKG 12 LEAD - PEDIATRIC Routine 01/18/2016 7:18 R esults for this AM CDT procedure are i n the results section. documented in this encounter Results (ABNORMAL) INR (01/20/2016 7:56 AM CDT) P athologist Signature INR 1.22 (H) 0.86 - 1.14 U [facility] Specimen Anatomical Collection Method Collection Time Receive d Time (Source) Location / / Volume Laterality Blood specimen 01/20/2016 7:56 AM 016 7:57 (specimen) CDT AM CDT Kirsten Carter MD LAB - BLOOD ORDERABLES Performing Organization Address City/State/ZIP Code Phon e Number U OF [facility] U OF [facility] (ABNORMAL) INR (01/19/2016 3:29 PM CDT) P athologist Signature INR 1.23 (H) 0.86 - 1.14 U [facility] Specimen Anatomical Collection Method Collection Time Receive d Time (Source) Location / / Volume Laterality Blood specimen 01/19/2016 3:29 PM 016 3:30 (specimen) CDT PM CDT Tammy Salvador MD LAB - BLOOD ORDERABLES Performing Organization Address City/State/ZIP Code Phon e Number U OF [facility] U OF M [facility] (ABNORMAL) Holter set up 48 hrs pediatric (01/19/2016 12:00 PM CDT) [place] [facility] - 01/19/2016 12:00 PM CDT [facility] [address] [place], [place] [address] [place] [id number] 01/19/2016 Patient: ??Jude Cho [facility] Chart: [id number] : ??2000 Age: ??15 year old Sex: ??male Procedure: ??Event Monitor Placed:holter placed on pt on 01/19/2016 at 1200 and can be removed on 01/21/2016 a t 1200. Please see scanned document for result once interpr etation is completed. Machine Clothing Replacer performing hook-up: ??Nadira Garcia 02/01/2016 at 12:31PM I left a voicemail on [phone] ([employer] [facility]'s phone#) to give the EKG lab a phone call back regarding the holter that has not been returned. Lilo Mahajan, MS ____ 02/03/16 at 15:00... The holter monitor was returned to the [facility]. HOLTER MONITOR PRELIMINARY DATA A 48 hour Holter monitor study was perfo rmed with 3 channels available for interpretation. ??The qual ity of tracing is acceptable with minimal baseline artifac t. ??The Holter was placed 01/19/2016 and was removed 01/21/2016 wi th a total analysis time of 48 hours and 0 minutes. During the recording period, the heart r ate ranged between 34 - 92 bpm, with an average heart rate of 52 ??bpm. Arrhythmias: Total ventricular ectopic beats = 2 (VE burden = <1%) with 2 isolated ventricular ectopic beats, 0 co uplets and 0 runs. Total supraventricular ectopic beats = 3 (SVE burden = <1%) with 3 isolated supraventricular ectopic beat s, 0 couplets and 0 runs. There were 1 pauses (2.0 seconds.) Patient Diary / Symptom Correlation: No symptom diary was returned. Entered and electronically signed by Shagufta Mahajan on February 03, 2016 at 3:56 PM [facility] Diagnostics - EKG Lab HOLTER MONITOR FINAL INTERPRETATION ?? The dominant rhythm during recording was sinus rhythm, with abnormal circadian and physiologic varia tion. There were no conduction anomalies noted . Standard ECG intervals appear grossly wi thin normal range, except for an abnormal QRS with an abnormal QRS - T angle. This is an abnormal Holter, consistent w ith sinus node disease. Electronically interpreted and signed by Chari Kimball MD on February 13, 2016 at 7:19 AM Tammy Salvador MD [facility] Performing Organization Address City/State/ZIP Code Phon e Number [facility] EKG 12 lead - pediatric (01/19/2016 10:27 AM CDT) [facility] Method Time Signature Interpretation ECG Click View RADIOLOGY Image link RESULTS to view waveform and result Specimen (Source) Anatomical Collection Method Collection Time Re ceived Time Location / / Volume Laterality 01/19/2016 10:27 AM CDT Tammy Salvador MD ECG ORDERABLES Performing Organization Address City/State/ZIP Code Phon e Number RADIOLOGY RESULTS ABO/Rh type and screen - PCU collect line draw (01/18/2016 12:47 PM CDT) [facility] Method Time Signature ABO Canceled, [facility] Test credited [facility] RH(D) Canceled, [facility] Test credited [facility] Antibody Canceled, [facility] Screen Test credited [facility] Test Valid Not done [facility] Only At [facility] Specimen 01/21/2016 [facility] Expires [facility] Blood Bank Duplicate [facility] Comment request [facility] Specimen Anatomical Collection Method Collection Time Receive d Time (Source) Location / / Volume Laterality Blood specimen 01/18/2016 12:47 6 (specimen) PM CDT 12:52 PM CDT Aleyda Vann MD LAB - BLOOD BANK TEST ORDER Performing Organization Address City/[facility]/ZIP [facility] Phon e Number [facility] [address] [place] [address] [facility] EKG 12 lead - pediatric (01/18/2016 11:56 AM CDT) Patholo gist Method Time Signature Interpretation ECG Click View RADIOLOGY Image link RESULTS to view waveform and result Specimen (Source) Anatomical Collection Method Collection Time Re ceived Time Location / / Volume Laterality 01/18/2016 11:56 AM CDT Loly SILVER ECG ORDERABLES Performing Organization Address City/[facility]/ZIP [facility] Phon e Number RADIOLOGY RESULTS Peds EP Study/Ablation (01/18/2016 10:54 AM CDT) Specimen (Source) Anatomical Location Collection Method / Collectio n Time Received Time / Laterality Volume Narrative RADIANT - 01/25/2016 12:12 PM CDT The results/report for this Cardiology exam is scanned in to [employer] and can be found under the Media Tab in the Maria Luisa t Review activity. Marisabel Ugarte MD CV ELECTROPHYSIOLOGY ORDERAB LES Performing Organization Address City/[facility]/ZIP Code Phon e Number [facility] (ABNORMAL) Activated clotting time POCT (01/18/2016 10:43 AM CDT) P athologist Signature Activated Clot 207 (H) 105 - 167 POINT OF CARE Time sec TEST, HANDHELD METER Specimen Anatomical Collection Method Collection Time Receive d Time (Source) Location / / Volume Laterality 01/18/2016 10:43 01/18/2016 AM CDT 11:00 AM CDT Akash Macedo MD LAB - ENTER/EDIT PO CT Performing Organization Address City/[facility] Phon e Number FV POINT OF CARE TEST, HANDHELD METER POINT OF CARE TEST, HANDHELD METER (ABNORMAL) Activated clotting time POCT (01/18/2016 9:34 AM CDT) P athologist Signature Activated Clot 238 (H) 105 - 167 POINT OF CARE Time sec TEST, HANDHELD METER Specimen Anatomical Collection Method Collection Time Receive d Time (Source) Location / / Volume Laterality 01/18/2016 9:34 AM 6 9:55 CDT AM CDT Akash Macedo MD LAB - ENTER/EDIT PO CT Performing Organization Address City/[facility] Phon e Number FV POINT OF CARE TEST, HANDHELD METER POINT OF CARE TEST, HANDHELD METER Peds heart cath (01/18/2016 9:30 AM CDT) Specimen (Source) Anatomical Location Collection Method / Collectio n Time Received Time / Laterality Volume Narrative RADIANT - 01/25/2016 12:12 PM CDT The results/report for this Cardiology exam is scanned in to [employer] and can be found under the Media Tab in the [facility] Review activity. Marisabel Ugarte MD CV CARDIAC CATH ORDERABLES Performing Organization Address City/[facility] Phon e Number [facility] (ABNORMAL) Activated clotting time POCT (01/18/2016 9:08 AM CDT) P athologist Signature Activated Clot 242 (H) 105 - 167 POINT OF CARE Time sec TEST, HANDHELD METER Specimen Anatomical Collection Method Collection Time Receive d Time (Source) Location / / Volume Laterality 01/18/2016 9:08 AM 6 9:15 CDT AM CDT Akash Macedo MD LAB - ENTER/EDIT PO CT Performing Organization Address City/[facility] Phon e Number FV POINT OF CARE TEST, HANDHELD METER POINT OF CARE TEST, HANDHELD METER (ABNORMAL) Oxyhemoglobin (01/18/2016 8:46 AM CDT) [facility] Method Time Signature Oxyhemoglobin 90 (L) 92 - 100 % POINT OF CARE Arterial TEST, BLOOD GAS/WHOLE BLOOD Specimen Anatomical Collection Method Collection Time Receive d Time (Source) Location / / Volume Laterality 01/18/2016 8:46 AM 6 CDT 12:40 PM CDT Akash Macedo MD LAB - BLOOD ORDERAB LES Performing Organization Address City/[facility] Phon e Number FV POINT OF CARE TEST, BLD GAS/WHOLE BLD POINT OF CARE TEST, BLOOD GAS/WHOLE BLOOD Lactic acid whole blood (01/18/2016 8:46 AM CDT) P athologist Signature Lactic Acid 1.2 0.7 - 2.1 POINT OF CARE mmol/L TEST, BLOOD GAS/WHOLE BLOOD Specimen Anatomical Collection Method Collection Time Receive d Time (Source) Location / / Volume Laterality 01/18/2016 8:46 AM 6 CDT 12:40 PM CDT Akash Macedo MD LAB - BLOOD ORDERAB LES Performing Organization Address [facility] Phon e Number FV POINT OF CARE TEST, BLD GAS/WHOLE BLD POINT OF CARE TEST, BLOOD GAS/WHOLE BLOOD Chloride whole blood (01/18/2016 8:46 AM CDT) P athologist Signature Chloride 106 96 - 110 POINT OF CARE mmol/L TEST, BLOOD GAS/WHOLE BLOOD Specimen Anatomical Collection Method Collection Time Receive d Time (Source) Location / / Volume Laterality 01/18/2016 8:46 AM 6 CDT 12:40 PM CDT Akash Macedo MD LAB - BLOOD ORDERAB LES Performing Organization Address City/[facility] Phon e Number FV POINT OF CARE TEST, BLD GAS/WHOLE BLD POINT OF CARE TEST, BLOOD GAS/WHOLE BLOOD (ABNORMAL) Arterial Panel (01/18/2016 8:46 AM CDT) [facility] gist Method Time Signature pH Arterial 7.31 (L) 7.35 - POINT OF CARE 7.45 pH TEST, BLOOD GAS/WHOLE BLOOD pCO2 Arterial 49 (H) 35 - 45 mm POINT OF CARE Hg TEST, BLOOD GAS/WHOLE BLOOD pO2 Arterial 68 (L) 80 - 105 POINT OF CARE mm Hg TEST, BLOOD GAS/WHOLE BLOOD Bicarbonate 24 21 - 28 POINT OF CARE Arterial mmol/L TEST, BLOOD GAS/WHOLE BLOOD Base Deficit Art 2.0 mmol/L POINT OF CARE TEST, BLOOD GAS/WHOLE BLOOD Comment: Reference range: -9.0 to 1.8 FIO2 21.0 POINT OF CARE TEST, BLOOD GAS/WHOLE BLOOD Sodium 139 133 - 143 mmol/L POINT OF CARE TEST, BLOOD GAS/WHOLE BLOOD Potassium 3.9 3.4 - 5.3 mmol/L POINT OF CARE TEST, BLOOD GAS/WHOLE BLOOD Hemoglobin 14.6 11.7 - 15.7 g/dL POINT OF CAR E TEST, BLOOD GAS/WHOLE BLOOD Glucose 124 (H) 70 - 99 mg/dL POINT OF CARE TE ST, BLOOD GAS/WHOLE BLOOD Calcium Ionized Whole Blood 5.0 4.4 - 5.2 mg/dL POINT OF CARE TEST, BLOOD GAS/WHOLE BLOOD Specimen Anatomical Collection Method Collection Time Receive d Time (Source) Location / / Volume Laterality 01/18/2016 8:46 AM 6 CDT 12:40 PM CDT Akash Macedo MD LAB - BLOOD ORDERAB LES Performing Organization Address City/State/ZIP Code Phon e Number FV POINT OF CARE TEST, BLD GAS/WHOLE BLD POINT OF CARE TEST, BLOOD GAS/WHOLE BLOOD Oxyhemoglobin (01/18/2016 8:36 AM CDT) Analysis Performed At Patho logist Time Signature Oxyhemoglobin 93 92 - 100 % POINT OF CARE Arterial TEST, BLOOD GAS/WHOLE BLOOD Specimen Anatomical Collection Method Collection Time Receive d Time (Source) Location / / Volume Laterality 01/18/2016 8:36 AM 6 CDT 12:40 PM CDT Akash Macedo MD LAB - BLOOD ORDERAB LES Performing Organization Address City/State/ZIP Code Phon e Number FV POINT OF CARE TEST, BLD GAS/WHOLE BLD POINT OF CARE TEST, BLOOD GAS/WHOLE BLOOD Lactic acid whole blood (01/18/2016 8:36 AM CDT) P athologist Signature Lactic Acid 1.2 0.7 - 2.1 POINT OF CARE mmol/L TEST, BLOOD GAS/WHOLE BLOOD Specimen Anatomical Collection Method Collection Time Receive d Time (Source) Location / / Volume Laterality 01/18/2016 8:36 AM 08/03/201 6 CDT 12:40 PM CDT Akash Macedo MD LAB - BLOOD ORDERAB LES Performing Organization Address City/State/ZIP Code Phon e Number FV POINT OF CARE TEST, BLD GAS/WHOLE BLD POINT OF CARE TEST, BLOOD GAS/WHOLE BLOOD Chloride whole blood (01/18/2016 8:36 AM CDT) P athologist Signature Chloride 106 96 - 110 POINT OF CARE mmol/L TEST, BLOOD GAS/WHOLE BLOOD Specimen Anatomical Collection Method Collection Time Receive d Time (Source) Location / / Volume Laterality 01/18/2016 8:36 AM 6 CDT 12:40 PM CDT Akash Macedo MD LAB - BLOOD ORDERAB LES Performing Organization Address City/State/ZIP Code Phon e Number FV POINT OF CARE TEST, BLD GAS/WHOLE BLD POINT OF CARE TEST, BLOOD GAS/WHOLE BLOOD (ABNORMAL) Arterial Panel (01/18/2016 8:36 AM CDT) [facility] Method Time Signature pH Arterial 7.30 (L) 7.35 - POINT OF CARE 7.45 pH TEST, BLOOD GAS/WHOLE BLOOD pCO2 Arterial 52 (H) 35 - 45 mm POINT OF CARE Hg TEST, BLOOD GAS/WHOLE BLOOD pO2 Arterial 80 80 - 105 POINT OF CARE mm Hg TEST, BLOOD GAS/WHOLE BLOOD Bicarbonate 25 21 - 28 POINT OF CARE Arterial mmol/L TEST, BLOOD GAS/WHOLE BLOOD Base Deficit Art 1.3 mmol/L POINT OF CARE TEST, BLOOD GAS/WHOLE BLOOD Comment: Reference range: -9.0 to 1.8 FIO2 21.0 POINT OF CARE TEST, BLOOD GAS/WHOLE BLOOD Sodium 139 133 - 143 mmol/L POINT OF CARE TEST, BLOOD GAS/WHOLE BLOOD Potassium 3.9 3.4 - 5.3 mmol/L POINT OF CARE TEST, BLOOD GAS/WHOLE BLOOD Hemoglobin 14.8 11.7 - 15.7 g/dL POINT OF CAR E TEST, BLOOD GAS/WHOLE BLOOD Glucose 118 (H) 70 - 99 mg/dL POINT OF CARE TE ST, BLOOD GAS/WHOLE BLOOD Calcium Ionized Whole Blood 5.0 4.4 - 5.2 mg/dL POINT OF CARE TEST, BLOOD GAS/WHOLE BLOOD Specimen Anatomical Collection Method Collection Time Receive d Time (Source) Location / / Volume Laterality 01/18/2016 8:36 AM 6 CDT 12:40 PM CDT Akash Macedo MD LAB - BLOOD ORDERAB LES Performing Organization Address City/[facility]/ZIP Code Phon e Number FV POINT OF CARE TEST, BLD GAS/WHOLE BLD POINT OF CARE TEST, BLOOD GAS/WHOLE BLOOD Digoxin level (01/18/2016 7:36 AM CDT) P athologist Signature Digoxin Level 1.6 0.5 - 2.0 [facility]/L [facility] Specimen Anatomical Collection Method Collection Time Receive d Time (Source) Location / / Volume Laterality Blood specimen 01/18/2016 7:36 AM 016 7:48 (specimen) CDT AM CDT Akash Macedo MD LAB - BLOOD ORDERAB LES Performing Organization Address City/[facility] Phon e Number [address] [address] [place] BANK Blood component (01/18/2016 7:30 AM CDT) [facility] Method Time Signature Unit Number [id number] [facility] Blood Red Blood [facility] Component Cells [facility] Type Leukocyte [facility] BANK Division 00 [facility] Status of No longer [facility] Unit available [facility] 01/18/2016 [facility] [place] 1250 BANK Blood Product [id number] [facility] Unit Status RET [facility] Specimen Anatomical Collection Method Collection Time Receive d Time (Source) Location / / Volume Laterality 01/18/2016 7:30 AM 6 7:42 CDT AM CDT Akash Macedo MD LABORATORY Performing Organization Address City/[facility] Code Phon e Number [address] [address] [facility]ST BANK Blood component (01/18/2016 7:30 AM CDT) Patholo gist Method Time Signature Unit Number [id number] [facility] Blood Red Blood [facility] Component Cells [place] [facility] Type Leukocyte [facility] Reduced BANK Division 00 [facility] Number [facility] Status of No longer [facility] Unit available [facility] 01/18/2016 [facility] [place] 1250 BANK Blood Product [id number] [facility] Code [facility] Unit Status RET [facility] Specimen Anatomical Collection Method Collection Time Receive d Time (Source) Location / / Volume Laterality 01/18/2016 7:30 AM 6 7:42 CDT AM CDT Akash Macedo MD LABORATORY Performing Organization Address City/State/ZIP Code Phon e Number [address] [address] [facility] (ABNORMAL) INR (01/18/2016 7:30 AM CDT) P athologist Signature INR 1.38 (H) 0.86 - 1.14 [facility] Specimen Anatomical Collection Method Collection Time Receive d Time (Source) Location / / Volume Laterality Blood specimen 01/18/2016 7:30 AM 016 8:05 (specimen) CDT AM CDT Akash Macedo MD LAB - BLOOD ORDERAB LES Performing Organization Address City/[facility] Code Phon e Number [address] [address] [facility] ABO/Rh type and screen (01/18/2016 7:30 AM CDT) Patholo gist Method Time Signature Units Ordered 2 [facility] ABO AB [facility] RH(D[facility] Pos [facility] Antibody Neg [facility] Screen [facility] Test Valid [facility] B[facility] w Hospital Specimen 01/21/2016 [facility] Expires [facility] Crossmatch Red Blood [facility] Cells [facility] Specimen Anatomical Collection Method Collection Time Receive d Time (Source) Location / / Volume Laterality Blood specimen 01/18/2016 7:30 AM 016 7:42 (specimen) CDT AM CDT Akash Macedo MD LAB - BLOOD BANK TE ST ORDER Performing Organization Address City/State/ZIP Code Phon e Number [facility] [address] [place] [address] [facility] EKG 12 lead - pediatric (01/18/2016 7:18 AM CDT) [facility] gist Method Time Signature Interpretation ECG Click View RADIOLOGY Image link RESULTS to view waveform and result Specimen (Source) Anatomical Collection Method Collection Time Re ceived Time Location / / Volume Laterality 01/18/2016 7:18 AM CDT Aleyda Vann MD ECG ORDERABLES Performing Organization Address City/State/ZIP Code Phon e Number RADIOLOGY RESULTS documented in this encounter Visit Diagnoses Not on filedocumented in this encounter Administered Medications Inactive Administered Medications - up to 3 most recent administrations Medication Order MAR Action Action Date Dose Rate Site iodixanol (VISIPAQUE Given 01/18/2016 10:49 116 mLs Operative 320) injection AM CDT Site/Surgical S ite PRN, Starting on Sat01/18/16 at 1049, Intra-procedure documented in this encounter Active and Recently Administered Medications Times are shown in CDT. Scheduled Medication Order 01/18/2016 01/19/2016 01/20/2016 digoxin (LANOXIN) tablet 250 mcg (CANCELED) 0802 (Given - Provider: Dalila Stephens RN) 08 (Given - Provider: Faith Weinstein RN) 250 mcg, Oral, DAILY, First dose on Sat01/19/16 at 0800 lisinopril (PRINIVIL,ZESTRIL) tablet 10 mg (CANCELED) 1706 (Given - Provider: Pastora Santoyo RN) 08 (Given - Provider: Dalila Stephens RN) 08 ( Given - Provider: Faith Weinstein, BRIELLE) 10 mg, Oral, DAILY, First dose on Sat01/18/16 at 1600 loratadine (CLARITIN) tablet 10 mg (CANCELED) 08 (Given - Provider: Dalila Stephens RN) 0805 (Given - Provider: Faith Weinstein RN) 10 mg, Oral, DAILY, First dose on Sat01/19/16 at 0800 metoprolol (LOPRESSOR) tablet 25 mg (CANCELED) 1956 (Sangita iven - Provider: Pastora Santoyo RN - Comment: HR 63) 25 mg, Oral, 2 TIMES DAILY, First dose o n Sat01/18/16 at 2000, For Adults, Hold if HR less than 60 bpm. Hold 01/19/16 AM dose until cardio reassess metoprolol (LOPRESSOR) tablet 25 mg 0930 (Given - Provider: Dalila Stephens RN)2009 (Given - Provider: Gayathri Burleson RN) 0920 (Not Given - Provider: Faith Weinstein RN - Reason: Order parameters not met)1018 (Given - Provider: Faith Weinstein RN - Comment: Per MD, ok to give even if HR below 60) 25 mg, Oral, 2 TIMES DAILY, First dose o n Sat01/19/16 at 0830, For Adults, Hold if HR less than 60 bpm. Hold 01/19/16 AM dose until cardio reassess sodium chloride (PF) 0.9% PF flush 3 mL (CANCELED) 160 7 (Given - Provider: Pastora Santoyo RN)2334 (Given - Provider: Catarina Santiago RN) 0806 (Given - Provider: Dalila Stephens RN)1534 (Given - Provider: Gayathri Burleson RN) 0011 (Given - Provider: Catarina Santiago RN)0806 (Given - Provider: Faith Weinstein RN) 3 mL, Intracatheter, EVERY 8 HOURS, Firs t dose on Sat01/18/16 at 1600, And Q1H PRN, to lock peripheral IV dormant line. spironolactone (ALDACTONE) tablet 25 mg (CANCELED) 0802 (Given - Provider: Dalila Stephens RN) 0806 (Given - Provider: Faith Weinstein RN) 25 mg, Oral, DAILY, First dose on Sat01/19/16 at 0800 warfarin (COUMADIN) tablet 2.5 mg (COMPLETED) 1822 (Gi eliot - Provider: Pastora Santoyo RN) 2.5 mg, Oral, ONCE AT 6PM, Sat01/18/16 at 1800, For 1 dose warfarin (COUMADIN) tablet 5 mg (COMPLETED) 1801 (Given - Provider: Gayathri M Sarah Beth, RN) 5 mg, Oral, ONCE AT 6PM, Suze 01/19/16 at 1800, For 1 dose Continuous Medication Order 01/18/2016 01/19/2016 01/20/2016 dexmedetomidine (PRECEDEX) 4 mcg/mL in NaCl 0.9 % 50 m L infusion (CANCELED) 1040 (New Bag - Provider: Lelia Cuellar APRN [employer]ENE[employer] CLIPPER HELPER)1120 (Stopped - Provider: Lelia Cuellar APRN CRNA) 0.2 mcg/kg/hr ? 55.5 kg (2.775 mL/hr, rounded to 2.78 mL/hr), at 2.78 mL/hr, Intravenous, CONTINUOUS, Starting Sat01/18/16 at 0730 PRN Medication Order 01/18/2016 01/19/2016 01/20/2016 acetaminophen (TYLENOL) chewable tablet 640 mg (CANCELED) 1018 (Given - Provider: Faith Weinstein RN) 640 mg (rounded from 649.35 mg = 11.7 mg /kg ? 55.5 kg), Oral, EVERY 4 HOURS PRN, mild pain, fever, Starting Sat01/18/16 at 1145, Fever (temp greater than 38.0C, 100.4F). Max: 5 doses of acetaminophen co ntaining products in 24 hours. If pain i s not improved after 15 minutes, consider giving ibuprofen or other non-acetaminophen containing analgesic (if ordered) or call provider. Maximum acetaminophen do se from all sources= 75 mg/kg/day not to exceed 4 grams/day., Cardiac Post-procedure iodixanol (VISIPAQUE 320) injection (CANCELED) 1049 (G iven - Provider: Akash Macedo MD) PRN, Starting Sat01/18/16 at 1049, Intra-procedure documented in this encounter
--- OUTSIDE RECORDS SUMMARY | 2022-04-10 09:59 | XMS_ITS | Encounter Summary ---
:2000 Author Organization [place] Address [facility] [place] [address] Care Team Providers Name Role Phone Stephen Sauceda Rudy Primary Care Provider Encounter Details Date Type Department Care Team Description 02/03/2016 Orders Only [facility] Raul Patten, Hypoplasti c left heart syndrome; Pediatric Specialty Serina Mclean RN Tachyc ardia; Clinic [place] SVT (supraventricular tachyc ardia) (H) [address] [facility] [address] [place] [address] Social History Tobacco Use Types [...] 07/27/2022 Ancillary Procedure Cardiology Cordell Juarez MD [address] [place] [id number] (Wo rk) 07/27/2022 Office Visit Cardiology Cordell Juarez MD [address] [place] [address] [place] [address] (Wo rk) documented as of this encounter 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
--- OUTSIDE RECORDS SUMMARY | 2022-04-10 09:59 | XMS_ITS | Encounter Summary ---
:2000 Author Organization [place] Address [facility] [place] [address] Care Team Providers Name Role Phone Unavailable Primary Care Provider Unavailable Encounter Details Date Type Department Care Team Description 11/09/2015 Orders Only [facility] Cordell Juarez Hypo plastic left Pediatric Specialty MD heart syndrome Clinic [address] (Primary Dx) [address] [facility] [place] [id number] [phone] Social History Tobacco Use Types Packs/Day Years [...] 07/27/2022 Ancillary Procedure Cardiology Cordell Juarez MD [address] [place] [address] [address] [place] [address] (Wo rk) 07/27/2022 Office Visit Cardiology Cordell Juarez MD [address] [place] [address] [id number] [place] [address] (Wo rk) documented as of this encounter 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
--- OUTSIDE RECORDS SUMMARY | 2022-04-10 09:59 | XMS_ITS | Encounter Summary ---
:2000 Author Organization [place] Address [address] [place] [address]. [place] [address] Care Team Providers Name Role Phone Unavailable Primary Care Provider Unavailable Reason for Referral - Closed Specialty Diagnoses / Procedures Referred By Contact Refer red To Contact Diagnoses Heterotaxy Hypoplastic left heart syndrome Cordell Herrera MD Procedures Ziopatch Holter Monitor - Peds [address] [place] [address] Referral ID Status Reason Start Date Expiration Date Visits Requ ested Visits Authorized [id number] Closed 11/23/2015 11/22/2016 1 1 Reason for Visit Reason Comments RECHECK Hypoplastic left heart syndr ome Encounter Details Date Type Department Care Team Description 11/23/2015 Office Visit [facility] Cordell Herrera, Emi plastic left heart syndrome (Primary Dx); Pediatric Specialty Heterotaxy Clinic [address] [facility] [address] [place] [id number] [phone] Social History Tobacco Use Types Packs/Day Years Used Date Smoking Tobacco: Never Comments: none at home Alcohol Use Standard Drinks/Week Comments Not Asked 0 (1 standard drink = 0.6 oz pure alcoho l) Sex Assigned at Date Recorded Male 03/09/2019 1:21 PM CDT documented as of this encounter Last Filed Vital Signs Vital Sign Reading Time Taken Comments Blood Pressure 111/68 11/23/2015 9:58 AM CDT right arm Pulse 64 11/23/2015 9:58 AM CDT Temperature - - Respiratory Rate 20 11/23/2015 9:58 AM CDT Oxygen Saturation 95% 11/23/2015 9:58 AM CDT Inhaled Oxygen Concentration - - Weight 54.6 kg (120 lb 5.9 oz) 11/23/2015 9:58 AM CDT Height 161.5 cm (5' 3.58) 11/23/2015 9:58 AM CDT Body Mass Index 20.93 11/23/2015 9:58 AM CDT Body Mass Index Percentile 57.41 % 11/23/2015 9:58 AM CD T Growth Chart: [facility] (Boys, 2-20 Years) documented in this encounter Patient Instructions Patient InstructionsLohr, Cordell Barajas MD - 11/23/2015 11:35 AM CDT You were seen today in the Pediatric Cardiology Clinic at [facility] Cardiology Providers you saw during your visit: Cordell Herrera MD Diagnosis: Heterotaxy, single ventricle s/p fontan Results: Mildly reduced ventricular function - prelim read, stable on echo. Mild av valve regurg. Recommendations: Start aldactone 12.5 mg daily Repeat labs in 2 weeks 14 day zio patch Possible Heart cath +/- repeat MRI/MRA late summer SBE prophylaxis: Yes_x___ No____ Exercise restrictions: Yes_X__ No___ If yes list restrictions: No contact sports Work restrictions: Yes___ No____ If yes list restrictions: Follow-up: 6 months with repeat labs and exam Thank you for your visit today. If you have questions about today's visit, please call our clinic [phone] For after hours urgent needs call [phone] and ask to speak to the Pediatric Cardiology Physician oracle wms consultant. For emergencies call [phone]. documented in this encounter Progress Notes Cordell Herrera MD - 12/13/2015 11:28 PM CDT Pediatric Cardiology Visit Patient: Jude Merritt Date of : 2000 Age: 15 y 10 m Date of Visit: Nov 23, 2015 PCP: Ana Florentino [place] Dear Dr. Reed, I had the pleasure of seeing your patient, Jude Merritt, in the Pediatric Cardiology Clinic at [facility] in [place] on Nov 23, 2015. 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 He underwent a central shunt, followed by a Fortino procedure and completion of a Fontan procedure at the [facility] in [place]. He had catheter closure of his Fontan fenestration at the [facility] in January 2007. Jude was last seen [...] any use of alcohol or drugs. 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 Jude will be entering the 10th grade and is doing well. He has an IEP. He participates in baseball, but is no longer playing basketball. 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 He continues on his coumadin, and gets INR's checked in [place] with a goal range of 2-2.5. Current Outpatient Prescriptions Medication ??? spironolactone (ALDACTONE) 25 MG tablet ??? warfarin (COUMADIN) 2 MG tablet ??? warfarin (COUMADIN) 4 MG tablet ??? lisinopril (PRINIVIL,ZESTRIL) 10 MG tablet ??? dexmethylphenidate (FOCALIN XR) 15 MG 24 hr capsule ??? omeprazole (PRILOSEC) 20 MG capsule ??? Loratadine (CLARITIN PO) No current facility-administered medications for this visit. No longer takes omeprazole FH/SH: Jude and his family live in [place]. His mother is a nurse at [employer]. His height is 1.615 m (5' 3.58) and weight is 54.6 kg (120 lb 5.9 oz). His blood pressure is 111/68and his pulse is 64. His respiration is 20 and oxygen saturation is 95%. His body mass index is 20.93 kg/(m^2). His body surface area is 1.57 meters squared. Growth percentiles are 16th% for weight and7% for height. In general, he is a [...] 12-lead ECG was obtained today which revealed normal sinus rhythm at a rate of 63 beats per minute, RVH with strain pattern and interventricular conduction delay, left axis deviation, and flattened/ inverted T waves in lateral leads. Overall, this is unchanged from prior ECG's. Holter had an average HR pf 72 bpm (range 39-156) 6 VE 3 SVE Double outlet right ventricle. There is a large anterior malalignment ventricular septal defect. Complete transposition of the great arteries (D- TGA). Patient has undergone Fontan operation. There is laminar phasic color flow in the Fortino shunt. The right ventricular function is qualitatively mild to moderately depressed. Mild (1+) tricuspid valve insufficiency. Post stenting of Fontan fenestration. No fenestration is seen. Impression and Plan: 15 yo s/p fontan - fenestration closed with amplatzer. Intermittent LE swelling, reduced exercise tolerance. Labs reassuring. 1. Aldactone 12.5 mg daily 2 Labs in 2 weeks 3. Zio patch today 4.Set up heart cath for early January Cordell Bingham M.D. Bottler of Pediatrics Division of Pediatric Cardiology [facility] documented in this encounter Nursing Notes Kim Summers MA - 11/23/2015 10:00 AM CDT Informant- Luke is accompanied by mother Reason for Visit- Hypoplastic left heart syndrome Vitals signs- BP 111/68 mmHg Pulse 64 Resp 20 Ht 1.615 m (5' 3.58) Wt 54.6 kg (120 lb 5.9 oz) BMI 20.93kg/m2 SpO2 95% Face to Face time: 5 minutes Kim Summers MA documented in this encounter Plan of Treatment Upcoming Encounters Date Type Specialty Care Team Description 07/27/2022 Ancillary Procedure Cardiology Cordell Herrera MD [address] [place] [id number] (Arleen valdes) 07/27/2022 Office Visit Cardiology Cordell Herrera MD Replaced by [facility] [address] [place], [place] [id number] (Arleen valdes) documented as of this encounter Results Ziopatch Holter Monitor - Peds (11/30/2015) Narrative Kirsten Segura - 11/30/2015 HOLTER MONITOR ??MAILED [facility] [address] [place] [phone] DATE : ??November 24, 2015 [employer] [employer] FORMER : Jennifer Tyler CMA DEVICE DETAILS: [id number] Cordell Herrera MD CV CARDIAC SERVICES ORDERABL ES Echo pediatric complete (11/23/2015 10:41 AM CDT) Anatomical Region Laterality Modality Echocardiography Specimen (Source) Anatomical Collection Method Collection Time Re ceived Time Location / / Volume Laterality 11/23/2015 10:07 AM CDT Narrative 11/23/2015 11:56 AM CDT Interpretation Summary ? Study ID: [id number] ? [facility] ?Echocardiography Laboratory ?[address] ? [place] [address] ?P ediatric Echocardiogram Name: JUDE MERRITT Study Date: 11/23/2015 10:07 AM ? Patient Location: [facility] ? Age: 15 yrs : 2000 ? BP: 111/68 mmHg Gender: Male ?HR: 49 Patient Class: Outpatient ? Height: 161 cm Ordering Provider: CORDELL HERRERA ?Weight: 55 kg Referring Provider: CORDELL HERRERA ? BSA: 1.6 m2 Performed By: Amanda Crawford RDCS Report approved by: Artemio Silva MD Reason For Study: , Hypoplastic left hea rt syndrome CONCLUSIONS Double outlet right ventricle. There is a large anterior malalignment ventricular septal defect. Complete farfan sposition of the great arteries (D- TGA). Patient has undergone Fontan opera tion. There is laminar phasic color flow in the Fortino shunt. The right ventr icular function is qualitatively mild to moderately depressed. Mild (1+) tricu spid valve insufficiency. Post stenting of Fontan fenestration. No fene stration is seen. Technical information: A complete two dimensional, MMODE, spect ral and color Doppler transthoracic echocardiogram is performed. The study q uality is good. Images are obtained from parasternal, apical, subcostal and suprasternal notch views. Prior echocardiogram available for comparison. ECG tracing shows regular rhythm. ECG tracing shows sinus bradycardia at 4 9 bpm. Segmental Anatomy: There is normal atrial arrangement. Abse nt left atrioventricular connection. Systemic and pulmonary veins: There is laminar phasic color flow in th e Fortino shunt. Patient has undergone Fontan operation. The Fontan connection is widely patent with phasic laminar flow. Post stenting of Fontan fenestrati on. Color flow demonstrates flow from two right and two left pulmonary veins e ntering the left atrium. Atria and atrial septum: The right and left atria are normal in s ize. There is laminar flow across the atrial level communication. Post atrial septectomy. Atrioventricular valves: The tricuspid valve is normal in appeara nce and motion. Mild (1+) tricuspid valve insufficiency. The mitral valve black s normal structure, size, insertion and function. Ventricles and Ventricular Septum: Double outlet right ventricle. There is mid to moderate right ventricular enlargement. The right ventricular funct ion is qualitatively mild to moderately depressed. There is a large a nterior malalignment ventricular septal defect. Outflow tracts: Complete transposition of the great chidi gavino (D-TGA). The systemic outflow tract is unobstructed. Tricuspid aortic valve with normal appearance and motion. There is unobstructed antegrade flow in the ascending, transverse arch, descending thoracic and abdominal aorta. Coronaries: The coronary arteries are not evaluated. Effusions, catheters, cannulas and leads : No pericardial effusion. Doppler Measurements & Calculations Ao V2 max: 79.7 cm/sec ?LV V1 max: 54.6 cm/sec Ao max P.5 mmHg ? LV V1 max P.2 mmHg ?LV dP/dt: 1208 mmHg/s LPA max dhruv: 45.5 cm/sec LPA max P.83 mmHg desc Ao max dhruv: 97.9 cm/sec desc Ao max P.8 mmHg Report approved by: Artemio Silva MDon 01/2016 11:56 AM Procedure Note Artemio Silva MD - 11/23/2015 Interpretation Summary Study ID: [id number] [facility] Echocardiography Laboratory [address] [place] [address] Pediatric Echocardiogram Name: JUDE MERRITT Mar[place] Study Date: 11/23/2015 10:07 AM Patient Location: [facility] Age: 15 yrs : 2000 BP: 111/68 mmHg Gender: Male HR: 49 Patient Class: Outpatient Height: 161 cm Ordering Provider: CORDELL HERRERA Weight: 5 5 kg Referring Provider: CORDELL HERRERA BS A: 1.6 m2 Performed By: Amanda Crawford RDCS Report approved by: Artemio Silva MD Reason For Study: , Hypoplastic left hea rt syndrome CONCLUSIONS Double outlet right ventricle. There is a large anterior malalignment ventricular septal defect. Complete farfan sposition of the great arteries (D- TGA). Patient has undergone Fontan opera tion. There is laminar phasic color flow in the Fortino shunt. The right ventr icular function is qualitatively mild to moderately depressed. Mild (1+) tricu spid valve insufficiency. Post stenting of Fontan fenestration. No fene stration is seen. Technical information: A complete two dimensional, MMODE, spect ral and color Doppler transthoracic echocardiogram is performed. The study q uality is good. Images are obtained from parasternal, apical, subcostal and suprasternal notch views. Prior echocardiogram available for comparison. ECG tracing shows regular rhythm. ECG tracing shows sinus bradycardia at 4 9 bpm. Segmental Anatomy: There is normal atrial arrangement. Abse nt left atrioventricular connection. Systemic and pulmonary veins: There is laminar phasic color flow in th e Fortino shunt. Patient has undergone Fontan operation. The Fontan connection is widely patent with phasic laminar flow. Post stenting of Fontan fenestrati on. Color flow demonstrates flow from two right and two left pulmonary veins e ntering the left atrium. Atria and atrial septum: The right and left atria are normal in s ize. There is laminar flow across the atrial level communication. Post atrial septectomy. Atrioventricular valves: The tricuspid valve is normal in appeara nce and motion. Mild (1+) tricuspid valve insufficiency. The mitral valve black s normal structure, size, insertion and function. Ventricles and Ventricular Septum: Double outlet right ventricle. There is mid to moderate right ventricular enlargement. The right ventricular funct ion is qualitatively mild to moderately depressed. There is a large a nterior malalignment ventricular septal defect. Outflow tracts: Complete transposition of the great chidi gavino (D-TGA). The systemic outflow tract is unobstructed. Tricuspid aortic valve with normal appearance and motion. There is unobstructed antegrade flow in the ascending, transverse arch, descending thoracic and abdominal aorta. Coronaries: The coronary arteries are not evaluated. Effusions, catheters, cannulas and leads : No pericardial effusion. Doppler Measurements & Calculations Ao V2 max: 79.7 cm/sec LV V1 max: 54.6 c m/sec Ao max P.5 mmHg LV V1 max P.2 mm Hg LV dP/dt: 1208 mmHg/s LPA max dhruv: 45.5 cm/sec LPA max P.83 mmHg desc Ao max dhruv: 97.9 cm/sec desc Ao max P.8 mmHg Report approved by: Janee Carolina 01/2016 11:56 AM Cordell Herrera MD CV PEDS ECHO ORDERABLES documented in this encounter Visit Diagnoses Diagnosis Hypoplastic left heart syndrome - Primar y Heterotaxy Other specified congenital anomalies Hypoplastic left heart syndrome Heterotaxy Other specified congenital anomalies Hypoplastic left heart syndrome documented in this encounter
--- OUTSIDE RECORDS SUMMARY | 2022-04-10 09:59 | XMS_ITS | Encounter Summary ---
:2000 Author Organization [place] Address [address] [facility] [place] [address] Care Team Providers Name Role Phone Unavailable Primary Care Provider Unavailable Reason for Visit (Routine) - Closed Specialty Diagnoses / Procedures Referred By Contact Refer red To Contact Cardiology Diagnoses hypoplastic left heart Zz Rh Echocardiography Procedures [facility] [address] [place], [place] [address] Phone: Referral ID Status Reason Start Date Expiration Date Visits Requ ested Visits Authorized [id number] Closed 11/15/2015 11/14/2016 1 1 Encounter Details Date Type Department Care Team Description 11/23/2015 Hospital Encounter [place] Cordell Ng, Hypoplastic left Cardiopulmonary MD heart syndrome [address] [place] [facility] [address] [place], [place] [phone] [place], [place] [phone] [address] Social History Tobacco Use Types Packs/Day Years [...] Reported on Hypoplastic left heart 09/14/2016 syndrome lisinopril Take 1 tablet (10 90 tablet 10 02/23/2015 016 (PRINIVIL,ZESTRIL) 10 MG mg) by mouth tabletIndications: daily Hypoplastic left heart syndrome Loratadine (CLARITIN PO) Take 10 mg by 0 03/06/2017 mouth daily Reported on 09/14/2016 omeprazole (PRILOSEC) 20 MG Take 1 capsule 90 capsule 3 02/201301/17/2016 capsuleIndications: History (20 mg) by mouth of gastritis daily spironolactone (ALDACTONE) Take 0.5 tablets 30 tablet 3 01/201608/01/2016 25 MG tabletIndications: (12.5 mg) by Hypoplastic left heart mouth daily syndrome warfarin (COUMADIN) 2 MG Take one tablet 90 tablet 0 201401/20/2016 tabletIndications: S/P every Saturday, Fontan procedure Saturday, Saturday warfarin (COUMADIN) 4 MG Take one tablet 90 tablet 0 201401/20/2016 tabletIndications: on Saturday, Hypoplastic left heart , syndrome Saturday, and Saturday documented as of this encounter Plan of Treatment Upcoming Encounters Date Type Specialty Care Team Description 07/27/2022 Ancillary Procedure Cardiology Cordell Juarez MD [address] [place] [address] [id number] (Wo rk) 07/27/2022 Office Visit Cardiology Cordell Juarez MD [address] [facility] [place] [address] [place], [place] [phone] (Wo rk) documented as of this encounter Procedures Procedure Name Priority Date/Time Associated Diagnosis Comme nts ECHO PEDIATRIC Routine 11/23/2015 10:41 AM Hypoplastic left Re sults for this COMPLETE CDT heart syndrome procedure are in the results section. documented in this encounter Results Echo pediatric complete (11/23/2015 10:41 AM CDT) Anatomical Region Laterality Modality Echocardiography Specimen (Source) Anatomical Collection Method Collection Time Re ceived Time Location / / Volume Laterality 11/23/2015 10:07 AM CDT Narrative 11/23/2015 11:56 AM CDT Interpretation Summary ? Study ID: [id number] ? [facility] ?Echocardiography Laboratory ?[address] [place] [address] ? [place] [address] ?P ediatric Echocardiogram Name: JUDE BILLS Study Date: 11/23/2015 10:07 AM ? Patient Location: [facility] ? Age: 15 yrs : 2000 ? BP: 111/68 mmHg Gender: Male ?HR: 49 Patient Class: Outpatient ? Height: 161 cm Ordering Provider: CORDELL JUAREZ ?Weight: 55 kg Referring Provider: CORDELL JUAREZ ? BSA: [...] approved by: Janee Carolina 01/2016 11:56 AM Procedure Note Artemio Silva MD - 11/23/2015 Interpretation Summary Study ID: [id number] [facility] Echocardiography Laboratory [address] [facility]. [place] [address] Pediatric Echocardiogram Name: JUDE BILLS Study Date: 11/23/2015 10:07 AM Patient Location: [facility] Age: 15 yrs : 2000 BP: 111/68 mmHg Gender: Male HR: 49 Patient Class: Outpatient Height: 161 cm Ordering Provider: CORDELL JUAREZ Weight: 5 5 kg Referring Provider: CORDELL JUAREZ BS A: [...] by: Janee Carolina 01/2016 11:56 AM Cordell Juarez MD CV PEDS ECHO ORDERABLES documented in this encounter 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
--- OUTSIDE RECORDS SUMMARY | 2022-04-10 09:59 | XMS_ITS | Encounter Summary ---
:2000 Author Organization [place] Address [address] [place] [address]. [place] [address] Care Team Providers Name Role Phone Unavailable Primary Care Provider Unavailable Encounter Details Date Type Department Care Team Description 11/24/2015 Orders Only [facility] Jennifer Tyler, KIMO Hete rotaxy; Pediatric Specialty Hypoplas tic left heart syndrome Clinic [place] [address] [facility] [address] [place] [address] Social History Tobacco Use Types [...] Cordell Juarez MD [facility] [address] [phone] (Wo rk) 07/27/2022 Office Visit Cardiology Cordell Juarez MD [address] [facility] [place], [place] [phone] (Arleen rk) documented as of this encounter Procedures Procedure Name Priority Date/Time Associated Diagnosis Comme nts ZIO PATCH PEDS Routine 11/30/2015 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 documented in this encounter Results Ziopatch Holter Monitor - Peds (11/30/2015) Narrative Kirsten Segura - 11/30/2015 HOLTER MONITOR ??MAILED [facility] [address] [place] [phone] DATE : ??November 24, 2015 CARTOGRAPHIC DRAFTER : Jennifer Tyler CMA DEVICE DETAILS: [id number] Cordell Juarez MD CV CARDIAC SERVICES ORDERABL ES documented in this encounter Visit Diagnoses Diagnosis Heterotaxy Other specified congenital anomalies Hypoplastic left heart syndrome documented in this encounter
--- OUTSIDE RECORDS SUMMARY | 2022-04-10 09:59 | XMS_ITS | Encounter Summary ---
:2000 Author Organization [place] Address [address] [place] [address]. [place] [address] Care Team Providers Name Role Phone Unavailable Primary Care Provider Unavailable Reason for Visit Auth/Cert Specialty Diagnoses / Procedures Referred By Contact Refer red To Contact Surgery Diagnoses Double Outleft Right Ventricle, Left Ventricle Hypoplastic Ur Periop Procedures HEART CATH CHILD EP STUDY CHILD EP ABLATION CHILD [address] [place] [phone] Phone: Fax: Referral ID Status Reason Start Date Expiration Date Visits Requ ested Visits Authorized [id number] 1 1 Encounter Details Date Type Department Care Team Description 01/18/2016 Anesthesia Event [facility] Esme Dacosta MD [address] [facility] [address] [place], [place] [address] PeriOp Services Lelia Cuellar APRN [place] [id number] [place] [address] [place] [phone] Anesthesia Record Procedure Summary Procedure Name Responsible Anesthesia Start Anesthesia Stop Anesthesiologist Time Time Right/Left Heart Cath Esme Dacosta, MD 01/18/16 0747 1120 Procedure, Electrophysiology Study and Ablation (Heart) Events Date Time Event Comment 01/18/2016 0747 An Start 0747 An Start Data 0747 Present 0759 An Induction 0818 An LMA 0818 AN START SEVO 0820 AN INCISION 0859 Present 0959 an unique now Internal pacing performed by proceduralist 1004 Quick Note Isuprel initiate d by proceduralist 1052 AN END SEVO 1105 LMA Removed 1114 an stop data 1120 An Stop Electronically s igned by Lelia Cuellar on January 18, 2016 1 1:28 AM Name Total midazolam 1mg/mL 2 mg lidocaine 2% 60 mg propofol (DIPRIVAN) injection 10 mg/mL vial 130 mg ondansetron 2mg/mL 4 mg glycopyrrolate 0.2mg/mL 0.2 mg propofol infusion (mcg/kg/min) 471.75 mg HEParin 1000 unit/mL 5,000 Units No abx ordered pre-op 1 each dexmedetomidine (PRECEDEX) 4 mcg/mL in NaCl 0.9 % 50 m L infusion 25.9 mcg LR 100 mL LR 208.75 mL Agents Name O2 Air Exp Sevoflurane O2 Delivery Device Ins Sevoflurane Blood No blood administrations on file. Lines, Drains, and Airways Type Details Placement Removal Peripheral IV 05/24/14; 0927; 22 G; 05/24/14 0927 by 01/18/16 1947 by Left; Upper forearm; Katalina Marcial, BRIELLE García, Benjamin I, Chlorhexidine; None RN (pt declined jtip); Tolerated well; mri Peripheral IV 01/04/16; 1435; 20 G, 01/04/16 1435 by 01/20/16 1405 by 1 inch; Right; Upper Kaitlyn Lind RN Wifler, Thuy, RN forearm; Chlorhexidine; None; Tolerated well; CT Venous Sheath 01/18/16; 0825; 7 Fr; 01/18/16 0825 by 01/18/16 1048 by Femoral; Right; Kylie Donald, Kylie Rosario Chaudhuri; 01/18/16; RN 1048 Arterial Sheath 01/18/16; 0828; 5 Fr; 01/18/16 0828 by 01/18/16 1048 by Femoral; Right; Kylie Elias RN Longman, Ju lie A, Hiremath; 01/18/16; RN 1048 Right Groin Interventional #2; 01/18/16; 1112; 01/18/16 1112 by 03/05/17 0000 by Procedure Access 03/05/17 Delicia Ashley Milla, Wes ley, RN RN documented in this encounter Social History Tobacco Use Types Packs/Day Years Used Date Smoking Tobacco: Never Comments: none at home Alcohol Use Standard Drinks/Week Comments No 0 (1 standard drink = 0.6 oz pure alcoho l) Sex Assigned at Date Recorded Male 03/09/2019 1:21 PM CDT documented as of this encounter OR Notes Anesthesia Postprocedure Evaluation - Esme Eubanks MD - 01/18/2016 1:40 PM CDT Patient: Luke L Negar HEART CATH CHILD (N/A Heart) EP STUDY CHILD (N/A Heart) EP ABLATION CHILD (N/A Heart) Additional InformationProcedure(s): Right/Left Heart Cath Procedure, Electrophysiology Study and Ablation Diagnosis:Double Outleft Right Ventricle, Left Ventricle Hypoplastic Diagnosis Additional Information: No value filed. Anesthesia Type: General, Other Note: Anesthesia Post Evaluation Patient location during evaluation: PACU Patient participation: Able to fully participate in evaluation Level of consciousness: awake and alert Pain management: adequate Airway patency: patent Cardiovascular status: hemodynamically stable Respiratory status: spontaneous ventilation Hydration status: euvolemic PONV: nonePONV Prophylaxis: PONV prophylaxis did not use combination therapy - reason unspecified Anesthetic complications: None Last vitals: Filed Vitals: 01/18/16 1245 01/18/16 1300 01/18/16 1315 BP: 93/48 92/51 92/50 Temp: Resp: 14 16 14 SpO2: 99% 98% 99% Electronically Signed By: Esme Eubanks MD January 18, 2016 1:40 PM Anesthesia Preprocedure Evaluation - Esme Eubanks MD - 01/18/2016 6:59 AM CDT Anesthesia Evaluation Anesthesia Plan History & Physical Review History and physical reviewed and following examination; no interval change. ASA Status: 3 . NPO Status: > 6 hours Plan for General and Other with Intravenous induction. Maintenance will be TIVA. PONV prophylaxis: Ondansetron and Dexamethasone Dexmedetomidine, Propofol Postoperative Care Postoperative pain management: IV analgesics. Consents Anesthetic plan, risks, benefits and alternatives discussed with: Parent (Mother and/or Father) and Patient.. ANESTHESIA PREOP EVALUATION Procedure: R/L cardiac catheterization HPI: HLHS, s/p Fontan Patient recently presented with fatigue, chest discomfort and lower extremity swelling. PMHx/PSHx/ROS: Past Medical History Diagnosis Date ??? 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 Esophageal reflux ??? Congenital anomalies of spleen Polysplenia Past Surgical History Procedure Laterality Date ??? C repr by modified fontan fenestrated fontan ??? 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 ? 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 Seasonal Allergies Itchy eyes, runny nose, hives when around tall grasses Meds: Prescriptions prior to admission Medication Sig Dispense Refill Last Dose ??? digoxin (LANOXIN) 250 MCG tablet Take 1 tablet (250 mcg) by mouth daily 30 tablet 1 ??? spironolactone (ALDACTONE) 25 MG tablet Take 0.5 tablets (12.5 mg) by mouth daily 30 tablet 3 ??? warfarin (COUMADIN) 2 MG tablet Take one tablet every Saturday, Saturday, Saturday (Patient taking differently: Take 2.5 mg by mouth 2.5 mg every Saturday and Saturday) 90 tablet 0 ??? warfarin (COUMADIN) 4 MG tablet Take one tablet on Saturday, , Saturday, and Saturday (Patient taking differently: 5 mg Takes 5mg per day except Saturday and saturday) 90 tablet 0 ??? lisinopril (PRINIVIL,ZESTRIL) 10 MG tablet Take 1 tablet (10 mg) by mouth daily 90 tablet 10 Taking ??? dexmethylphenidate (FOCALIN XR) 15 MG 24 hr capsule Take 15 mg by mouth daily Taking ??? Loratadine (CLARITIN PO) Take 10 mg by mouth daily Taking No current outpatient prescriptions on file. Physical Exam: VS: T 97.5, P Data Unavailable, BP 117/89, R 20, SpO2 98%. Weight 555.5 kg Airway: feasible Dentition: noted Heart: rrr Lungs: ctab NPO Status: ok BMP: Recent Labs Lab Test 03/09/15 1620 NA 139 POTASSIUM 4.2 CHLORIDE 105 CO2 27 BUN 17 CR 0.67 GLC 86 GOYO 9.8 LFTs: Recent Labs Lab Test 03/09/15 1620 PROTTOTAL 8.0 ALBUMIN 4.7 BILITOTAL 1.2 ALKPHOS 372 AST 25 ALT 25 CBC: Recent Labs Lab Test 03/09/15 1620 WBC 5.1 RBC 5.79* HGB 16.8* HCT 48.4* MCV 84 MCH 29.0 MCHC 34.7 RDW 14.0 PLT 230 Coags: Recent Labs Lab Test 08/15/15 05/15/10 1056 INR 1.4 < > 1.07 PTT -- -- 38* FIBR -- -- 291 < > = values in this interval not displayed. Double outlet right ventricle. There is a large anterior malalignment ventricular septal defect. Complete transposition of the great arteries (D- TGA). Patient has undergone Fontan operation. There is laminar phasic color flow in the Fortino shunt. The right ventricular function is qualitatively mild to moderately depressed. Mild (1+) tricuspid valve insufficiency. Post stenting of Fontan fenestration. No fenestration is seen. ? Technical information: A complete two dimensional, MMODE, spectral and color Doppler transthoracic echocardiogram is performed. The study quality is good. Images are obtained from parasternal, apical, subcostal and suprasternal notch views. Prior echocardiogram available for comparison. ECG tracing shows regular rhythm. ECG tracing shows sinus bradycardia at 49 bpm. ?? Segmental Anatomy: There is normal atrial arrangement. Absent left atrioventricular connection. ?? Systemic and pulmonary veins: There is laminar phasic color flow in the Fortino shunt. Patient has undergone Fontan operation. The Fontan connection is widely patent with phasic laminar flow. Post stenting of Fontan fenestration. Color flow demonstrates flow from two right and two left pulmonary veins entering the left atrium. ?? Atria and atrial septum: The right and left atria are normal in size. There is laminar flow across the atrial level communication. Post atrial septectomy. Atrioventricular valves: The tricuspid valve is normal in appearance and motion. Mild (1+) tricuspid valve insufficiency. The mitral valve has normal structure, size, insertion and function. ?? Ventricles and Ventricular Septum: Double outlet right ventricle. There is mid to moderate right ventricular enlargement. The right ventricular function is qualitatively mild to moderately depressed. There is a large anterior malalignment ventricular septal defect. ?? Outflow tracts: Complete transposition of the great arteries (D-TGA). The systemic outflow tract is unobstructed. Tricuspid aortic valve with normal appearance and motion. There is unobstructed antegrade flow in the ascending, transverse arch, descending thoracic and abdominal aorta. ?? Coronaries: The coronary arteries are not evaluated. ?? Effusions, catheters, cannulas and leads: No pericardial effusion. ?? Doppler Measurements & Calculations Ao V2 max: 79.7 cm/sec ?LV V1 max: 54.6 cm/sec Ao max P.5 mmHg ? LV V1 max P.2 mmHg ?LV dP/dt: 1208 mmHg/s LPA max dhruv: 45.5 cm/sec LPA max P.83 mmHg desc Ao max dhruv: 97.9 cm/sec desc Ao max P.8 mmHg ?? FINDINGS: ? SITUS: There is a normal spleen in the left upper quadrant. There is situs solitus in the chest, as demonstrated by a normal airway pulmonary artery relationship. ?? CAVAE: Right-sided inferior vena cava drains via extracardiac Fontan conduit into the branch pulmonary arteries. Fontan fenestration into the left atrium is occluded by an Amplatz device. Bilateral right and left superior vena cavae drain into their respective branch pulmonary arteries via bilateral Fortino anastomosis. There is no bridging vein. ?? PULMONARY VEINS: Two right and two left pulmonary veins drain into the left atrium unobstructed. ?? ATRIA: Large intra-atrial communication. The atrial sizes are normal. ? ATRIOVENTRICULAR CONNECTION: Concordant. ? VENTRICLES:?? Hypoplasia of the left ventricle. Right ventricular enlargement. Large interventricular communication. D- loop ventricles with levocardia. ?? VENTRICULOARTERIAL CONNECTION: Discordant. The aorta arises from the right ventricle. ?? AORTA AND SUPRA-AORTIC VESSELS: Right-sided aortic arch with a left-sided ductus arteriosus bump. Mirror image cervical branching pattern. No patent ductus arteriosus, coarctation, or aortopulmonary collateral arteries. Single coronary artery common trunk. ?? PULMONARY ARTERY: Branch pulmonary arteries are patent with normal branching pattern. ?? UPPER ABDOMEN: The liver demonstrates periportal edema. ?? BONES: Sternotomy. No acute osseous abnormality. ? IMPRESSION: ?? 1. Double outlet right ventricle, left ventricular hypoplasia, transposition of the great arteries, and pulmonary stenosis. 2. Status bilateral Fortino and Fontan anastomoses with subsequent Fontan fenestration device occlusion. 3. Single coronary artery common trunk. 4. Liver congestion likely of cardiac origin. 5. Right-sided aortic arch with left-sided ductus arteriosus. ?? I have personally reviewed the examination and initial interpretation and I agree with the findings. ?? SALEEM MICHAUD MD Assessment/Plan: - ASA 3 - GA with anvik airway and standard ASA monitors, IV induction, TIVA with Dexmedetomidine and Propofol - PIVx2 - Antibiotics per surgery - PONV prophylaxis - Blood products available, possible administration discussed with patient - Relevant risks, benefits, alternatives and the anesthetic plan were discussed with patient/family or family pharmaceutical representative. All questions were answered and there was agreement to proceed. Esme Eubanks MD Staff Anesthesiologist [phone] 01/18/2016 7:00 AM documented in this encounter Miscellaneous Notes Anesthesia Care Transfer Note - Lelia Cuellar APRN CRNA - 01/18/2016 11:28 AM CDT Patient: Jude Marquis Negar HEART CATH CHILD (N/A Heart) EP STUDY CHILD (N/A Heart) EP ABLATION CHILD (N/A Heart) Additional InformationProcedure(s): Right/Left Heart Cath Procedure, Electrophysiology Study and Ablation Diagnosis: Double Outleft Right Ventricle, Left Ventricle Hypoplastic Diagnosis Additional Information: No value filed. Anesthesia Type: General, Other Note: Airway :Nasal Cannula Patient transferred to:PACU Comments: VSS. Sleeping and comfortable. Moving all extremities. Satisfactory anesthetic recovery. Electronically Signed By: Lelia Cuellar APRN CRNA January 18, 2016 11:28 AM documented in this encounter Plan of Treatment Upcoming Encounters Date Type Specialty Care Team Description 07/27/2022 Ancillary Procedure [facility] [place], [place] [address] (Wo rk) 07/27/2022 Office Visit Cardiology [facility] [address] [address] (Wo rk) documented as of this encounter Visit Diagnoses Not on filedocumented in this encounter Administered Medications Inactive Administered Medications - up to 3 most recent administrations Medication Order MAR Action Action Date Dose Rate Site dexmedetomidine (PRECEDEX) New Bag 01/18/2016 10:40 0.7 mcg/kg/hr 9.71 mL/hr 4 mcg/mL in NaCl 0.9 % 50 AM CDT mL infusion 0.2 mcg/kg/hr ? 55.5 kg (2.775 mL/hr, rounded to 2.78 mL/hr), Intravenous, CONTINUOUS, Starting on Sat01/18/16 at 0730 glycopyrrolate (ROBINUL) injection Given 01/18/2016 8:06 AM CDT 0.2 mg Intravenous, PRN, Starting on Sat01/18/16 at 0806, Anesthesia Intra-op heparin (porcine) injection Given 01/18/2016 8:31 AM CDT 5,000 Units PRN, line flush, Starting on Sat01/18/16 at 0831, Anesthesia Intra-op lactated ringers infusion New Bag 01/18/2016 7:47 AM CDT Intravenous, CONTINUOUS PRN, Anesthesia Intra-op, Starting on Sat01/18/16 at 0747, Until Sat01/18/16 at 1128 lactated ringers infusion New Bag 01/18/2016 8:33 AM CDT 75 mL/hr Intravenous, CONTINUOUS PRN, Anesthesia Intra-op, Starting on Sat01/18/16 at 0833, Until Sat01/18/16 at 1128 lidocaine injection 2% (MDV) Given 01/18/2016 8:17 AM CDT 60 mg Intravenous, PRN, Starting on Sat01/18/16 at 0817, Anesthesia Intra-op midazolam (VERSED) injection Given 01/18/2016 7:45 AM CDT 2 mg Intravenous, PRN, anxiety, Starting on Sat01/18/16 at 0745, Anesthesia Intra-op No abx ordered pre-op Given 01/18/2016 7:47 AM CDT 1 each PRN, Starting on Sat01/18/16 at 0747, Until Sat01/18/16 at 1128, Anesthesia Intra-op ondansetron (ZOFRAN) injection Given 01/18/2016 10:51 AM CDT 4 mg Intravenous, PRN, nausea, vomiting, Administer over 2-5 Minutes, Starting on Sat01/18/16 at 1051, Anesthesia Intra-op propofol (DIPRIVAN) infusion Rate/Dose 01/18/2016 8:36 25 mcg/kg/min 8.3 mL/hr Intravenous, CONTINUOUS PRN, Change AM CDT Starting on Sat01/18/16 at 0756, Anesthesia Intra-op Rate/Dose Change 01/18/2016 8:26 AM CDT 50 mcg/kg/min 16.7 mL/hr Rate/Dose Change 01/18/2016 8:24 AM CDT 100 mcg/kg/min 33.3 mL/hr propofol (DIPRIVAN) injection 10 mg/mL v ial Given 01/18/2016 9:39 AM CDT 30 mg Intravenous, PRN, Starting on Sat01/18/16 at 0757, Anesthesia Intra-op Given 01/18/2016 8:17 AM CDT 60 mg Given 01/18/2016 7:59 AM CDT 20 mg documented in this encounter
--- OUTSIDE RECORDS SUMMARY | 2022-04-10 09:59 | XMS_ITS | Encounter Summary ---
:2000 Author Organization [place] Address [address] [place] [address] Care Team Providers Name Role Phone Unavailable Primary Care Provider Unavailable Encounter Details Date Type Department Care Team Description 03/05/2016 Orders Only [facility] PHYS STANDARD Cordell Juarez SVT (supraventricular tachyc ardia) (H) (Primary Dx); [facility] Hypoplastic left heart syndrome Building [address] [place], [place] [address] [address] [place], [place] [address]. , [facility]. [address] [place] [phone] [phone] Social History Tobacco Use Types Packs/Day Years [...] Ancillary Procedure Cardiology Cordell Juarez MD [address] [facility] [place] [address] (Wo rk) 07/27/2022 Office Visit Cardiology Larry, Cordell skelton MD [address] [facility] [address] [place] [address] (Wo rk) documented as of this encounter Visit Diagnoses Diagnosis SVT (supraventricular tachycardia) (H) - Primary Other specified cardiac dysrhythmias Hypoplastic left heart syndrome documented in this encounter
--- OUTSIDE RECORDS SUMMARY | 2022-04-10 09:59 | XMS_ITS | Encounter Summary ---
:2000 Author Organization [place] Address [address] [facility] [place] [address] Care Team Providers Name Role Phone Unavailable Primary Care Provider Unavailable Reason for Referral - Closed Specialty Diagnoses / Procedures Referred By Contact Refer red To Contact Diagnoses SVT (supraventricular tachycardia) (H) Cordell Juarez MD Procedures EKG 12 Lead - Pediatric [address] [place], [place] [id number] [place], [place] [address] Referral ID Status Reason Start Date Expiration Date Visits Requ ested Visits Authorized [id number] Closed 12/23/2015 12/22/2016 1 1 Encounter Details Date Type Department Care Team Description 12/23/2015 Orders Only [facility] PHYS STANDARD Cordell Juarez SVT (supraventricular [address] [facility] tachycardia) (H) [place], [place] [address] [facility] (Prima ry Dx) [id number] [facility] [phone] [place], [place] [id number] (Wo rk) Social History Tobacco Use Types [...] 07/27/2022 Ancillary Procedure Cardiology Cordell Juarez MD [address] [facility] [address] [place], [place] [id number] (Wo rk) 07/27/2022 Office Visit Cardiology Cordell Juarez MD [address] [facility] [address] [place], [place] [address] (Wo rk) documented as of this encounter Visit Diagnoses Diagnosis SVT (supraventricular tachycardia) (H) - Primary Other specified cardiac dysrhythmias documented in this encounter
--- OUTSIDE RECORDS SUMMARY | 2022-04-10 09:59 | XMS_ITS | Encounter Summary ---
:2000 Author Organization [place] Address [facility] [place] [address] Care Team Providers Name Role Phone Unavailable Primary Care Provider Unavailable Encounter Details Date Type Department Care Team Description 01/13/2016 Orders Only [facility] Cordell Juarez, Emi plastic left heart syndrome (Primary Dx); [facility] [address] [place] [id number] [place] [id number] [phone] Social History Tobacco Use Types Packs/Day Years [...] 07/27/2022 Ancillary Procedure Cardiology Cordell Juarez MD [address] [place] [address] [address] [place] [address] (Wo rk) 07/27/2022 Office Visit Cardiology Cordell Juarez MD [address] [place] [address] [address] [place] [address] (Wo rk) documented as of this encounter Visit Diagnoses Diagnosis Hypoplastic left heart syndrome - Primar y Tachycardia Tachycardia, unspecified documented in this encounter
--- OUTSIDE RECORDS SUMMARY | 2022-04-10 09:59 | XMS_ITS | Encounter Summary ---
:2000 Author Organization [place] Address [address] [place] [address]. [place] [address] Care Team Providers Name Role Phone Unavailable Primary Care Provider Unavailable Reason for Visit Reason Comments RECHECK SVT (supraventricular tachyc ardia) Encounter Details Date Type Department Care Team Description 05/23/2016 Office Visit [facility] Larry, Cordell Barajas, Tach ycardia with heart rate 100-120 beats per minute (Primary Dx); Pediatric Specialty MD Palpitations; Clinic [address] HYPOPLASTIC LEFT HEART SYND [address] [place] [address] [phone] Social History Tobacco Use Types Packs/Day Years Used Date Smoking Tobacco: Never Comments: none at home Alcohol Use Standard Drinks/Week Comments No 0 (1 standard drink = 0.6 oz pure alcoho l) Sex Assigned at Date Recorded Male 03/09/2019 1:21 PM CDT documented as of this encounter Last Filed Vital Signs Vital Sign Reading Time Taken Comments Blood Pressure 99/52 05/23/2016 2:27 PM [employer]AR[employer]ING S[employer]OTHER Pulse 68 05/23/2016 2:27 PM [employer]OTHER Temperature - - Respiratory Rate 20 05/23/2016 2:27 PM [employer]OTHER Oxygen Saturation 93% 05/23/2016 2:27 PM [employer]OTHER Inhaled Oxygen Concentration - - Weight 58.3 kg (128 lb 8.5 oz) 05/23/2016 2:27 PM [employer]AR[employer] LINING SMOOTHER Height 161.8 cm (5' 3.7) 05/23/2016 2:27 PM [employer]OTHER Body Mass Index 22.27 05/23/2016 2:27 PM QUARTER LINING SMOOTHER Body Mass Index Percentile 68.94 % 05/23/2016 2:27 PM CS T Growth Chart: [facility] (Boys, 2-20 Years) documented in this encounter Progress Notes Cordell Juarez MD - 05/23/2016 5:59 PM CST Pediatric Cardiology Visit Patient: Jude Bills Date of : 2000 Age: 15 y 10 m Date of Visit: May 23, 2016 PCP: Ana Florentino [place] Dear Dr. Reed, I had the pleasure of seeing your patient, Jude Bills, in the Pediatric Cardiology Clinic at [facility] in [place] on May 23, 2016. 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 He underwent a central shunt, followed by a Fortino procedure and completion of a Fontan procedure at the [facility] in protohistorian. He had catheter closure of his Fontan fenestration at the [facility] in January 2007. I last saw Jude in clinic in November 2015 and is here with his mother today due to concerns of chest pain. He began having episodes of sharp, pounding chest pain in his left chest intermittently in January. These episodes usually lasted approximately 1 minute and sometimes occurred multiple times a day as frequently as every couple days since January. These episodes usually occurred at rest and self-resolved. This morning in class, he began having the same sharp, pounding chest pain, but it persisted on and off for 1 hour and was associated with the sensation of a slow heart rate. He texted his mother and she picked him up from school and brought him to the clinic. He denies any dizzi ness, nausea, headache, or loss of consciousness, and the chest pain resolved after approximately 1 hour. He has some rhinorrhea, but denies any other associated symptoms, including no fever, chills, or cough. Jude had an EP study done on [...] that time, which he has continued. He reports being compliant with his medications. 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 Jude is currently in10th grade and he has an IEP. He does not participate in any regular exercise. participates in baseball, but is no longer playing basketball. 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 He continues on his coumadin, and gets INR's checked in [place] with a goal range of 2-2.5. Current Outpatient Prescriptions Medication ??? digoxin (LANOXIN) 250 MCG tablet ??? metoprolol (LOPRESSOR) 25 MG tablet ??? lisinopril (PRINIVIL,ZESTRIL) 10 MG tablet ??? warfarin (COUMADIN) 5 MG tablet ??? spironolactone (ALDACTONE) 25 MG tablet ??? dexmethylphenidate (FOCALIN XR) 15 MG 24 hr capsule ??? Loratadine (CLARITIN PO) No current facility-administered medications for this visit. No longer takes omeprazole FH/SH: Jude and his family live in [place]. His mother is a nurse at [employer]. His height is 1.618 m (5' 3.7) and weight is 58.3 kg (128 lb 8.5 oz). His blood pressure is 99/52 and his pulse is 68. His respiration is 20 and oxygen saturation is 93%. His body mass index is 22.27 kg/(m^2). His body surface area is 1.62 meters squared. Growth percentiles are 35th% for weight and 5% for height. In general, he is a very well-appearing young man with no central or peripheral cyanosis. Head and neck examination is unremarkable. Pupils are reactive and sclera are not jaundiced. Thereis no conjunctival injection or discharge. Mucous membranes are moist and pink. Lungs are clear to auscultation bilaterally. He has a well-healed midline sternotomy scar with a normal S1 and a single S2. He has a grade 2/6 systolic ejection murmur at the left upper sternal border, and no rubs, gallopsor diastolic murmurs. Abdominal examination is benign with [...] abnormal QRS with an abnormal QRS-T angle. His last echocardiogram performed on 11/23/15 demonstrated: Double outlet right ventricle. There is a large anterior malalignment ventricular septal defect. Complete transposition of the great arteries (D- TGA). Patient has undergone Fontan operation. There is laminar phasic color flow in the Fortino shunt.The right ventricular function is qualitatively mild to moderately depressed. Mild (1+) tricuspid valve insufficiency. Post stenting of Fontan fenestration. No fenestration is seen. 05/23/2016 16:15 Sodium 137 Potassium 4.2 Chloride 104 Carbon Dioxide 28 Urea Nitrogen 22 (H) Creatinine 0.89 Calcium 8.7 (L) Anion Gap 5 Magnesium 2.3 Phosphorus 4.1 Albumin 4.6 Protein Total 8.3 Bilirubin Total 0.9 Alkaline Phosphatase 162 ALT 29 AST 22 N-Terminal Pro Bnp 75 TSH 2.59 Glucose 76 WBC 6.1 Hemoglobin 15.8 (H) Hematocrit 47.3 (H) Platelet Count 203 Impression and Plan: Jude is a 16 yo male s/p fontan - fenestration closed with amplatzer. He has been having episodes ofsharp chest pain intermittently with a prolonged episode today, which may be due to an arrhythmia, such as the atrial tachycardia noted on the EP study, vs bradycardia from the metoprolol. His lab workis reassuring. Recommendations: 1. Labs obtained, as above 2. Continue Aldactone 12.5 mg daily 3. Zio patch placed in clinic today 4. Follow up with Dr. Figueroa after completion of Ziopatch Sincerely, Kavitha Mann M.D. Pediatric Geosciences Associate Professor I have reviewed the clinical history, examined the patient, reviewed the relevant diagnostic studies, and discussed our findings and recommendations with Jude and his mother. I have reviewed and editedthis note. Cordell Juarez M.D. Student Loan Counselor of Pediatrics Division of Pediatric Cardiology [facility] [employer]OTHER documented in this encounter Nursing Notes Kim Summers MA - 05/23/2016 2:31 PM CST Informant- Jude is accompanied by mother Reason for Visit- SVT (supraventricular tachycardia) Vitals signs- BP 99/52 mmHg Pulse 68 Resp 20 Ht 1.618 m (5' 3.7) Wt 58.3 kg (128 lb 8.5 oz) BMI 22.27 kg/m2 SpO2 93% Face to Face time: 5 minutes Kim Summers MA [employer]OTHER documented in this encounter Plan of Treatment Upcoming Encounters Date Type Specialty Care Team Description 07/27/2022 Ancillary Procedure [facility]iology [facility] [address] [place], [place] [address] (Arleen valdes) 07/27/2022 Office Visit Cardiology Cordell Juarez MD [address] [place], [place] [id number] (Arleen valdes) Scheduled Orders Name Type Priority Associated Diagnoses Order S chedule Echo pediatric Echocardiography Routine Tachycardia with Order ed: congenital heart rate 100-120 6 beats per minute documented as of this encounter Procedures Procedure Name Priority Date/Time Associated Comments Diagnosis ZZHC ELECTROCARDIOGRAM Routine 05/28/2016 Tachycardia with REPORT, SUBSEQUENT - ED heart rate 100-12 0 ONLY beats per minute CBC WITH PLATELETS & Routine 05/23/2016 4:15 Palpitations Resu lts for this DIFFERENTIAL PM [employer]OTHER procedure are i n the results section. TSH WITH FREE T4 REFLEX Routine 05/23/2016 4:15 Palpitations R esults for this PM [employer]OTHER procedure are i n the results section. PHOSPHORUS Routine 05/23/2016 4:15 Palpitations Results for this PM [employer]MOOTHER procedure are i n the results section. N TERMINAL PRO BNP Routine 05/23/2016 4:15 Palpitations Result s for this OUTPATIENT PM [employer]OTHER procedure are i n the results section. MAGNESIUM Routine 05/23/2016 4:15 Palpitations Results for this PM [employer]OTHER procedure are i n the results section. COMPREHENSIVE METABOLIC Routine 05/23/2016 4:15 Palpitations R esults for this PANEL PM QUAR[employer] LINING SMOOTHER procedure are i n the results section. documented in this encounter Results ELECTROCARDIOGRAM REPORT (05/28/2016) Narrative This result has an attachment that is no t available. Cordell Juarez MD PROCEDURES TSH with free T4 reflex (05/23/2016 4:15 PM QUARTER LINING SMOOTHER) athologist Signature TSH 2.59 0.40 - 4.00 [facility] Specimen Anatomical Collection Method Collection Time Receive d Time (Source) Location / / Volume Laterality Blood specimen 05/23/2016 4:15 PM 016 4:18 (specimen) QU[employer] SMOOTHER PM QU[employer]ING SMOOTHER Kavitha Mann MD LAB - BLOOD ORDERABLES Performing Organization Address City/State/ZIP Code Phon e Number M [facility] [address], [place] [address] [facility] [address] [place] [address] [phone] BNP-N terminal pro (05/23/2016 4:15 PM QUARTER LINING SMOOTHER) athologist Signature N-Terminal Pro 75 0 - 240 [place] Bnp pg/mL [facility] Specimen Anatomical Collection Method Collection Time Receive d Time (Source) Location / / Volume Laterality Blood specimen 05/23/2016 4:15 PM 016 4:18 (specimen) QUARTER LINING SMOOTHER PM QUARTER LINING SMOOTHER Kavitha Mann MD LAB - BLOOD ORDERABLES Performing Organization Address City/[facility] [address]/ZIP Code Phon e Number M [facility] [address], [place] [address] [facility] [address] [place], [place] [address], [facility] [phone] Phosphorus (05/23/2016 4:15 PM QUARTER LINING SMOOTHER) P athologist Signature Phosphorus 4.1 2.8 - 4.6 [facility] mg/dL [facility] Specimen Anatomical Collection Method Collection Time Receive d Time (Source) Location / / Volume Laterality Blood specimen 05/23/2016 4:15 PM 016 4:18 (specimen) QUARTER LINING SMOOTHER PM QUARTER LINING SMOOTHER Kavitha Mann MD LAB - BLOOD ORDERABLES Performing Organization Address City/[facility] [address]/ZIP Code Phon e Number [facility] [address], [place] [address] [facility] [address] [place], [place] [address], [facility] [phone] Magnesium (05/23/2016 4:15 PM QUARTER LINING SMOOTHER) P athologist Signature Magnesium 2.3 1.6 - 2.3 [facility] mg/dL [facility] Specimen Anatomical Collection Method Collection Time Receive d Time (Source) Location / / Volume Laterality Blood specimen 05/23/2016 4:15 PM 016 4:18 (specimen) QUARTER LINING SMOOTHER PM QUARTER LINING SMOOTHER Kavitha Mann MD LAB - BLOOD ORDERABLES Performing Organization Address City/[facility] [address]/ZIP [facility] Phon e Number M [facility] [address], [place] [address] [facility] [address] [place], [place] [address], [facility] [phone] (ABNORMAL) CBC with platelets and differential (05/23/2016 4:15 PM QUARTER LINING SMOOTHER) [facility] gist Method Time Signature WBC 6.1 4.0 - [place] 11.[address] RBC Count 5.46 (H) 3.7 - 5.3 [place] [id number] Hemoglobin 15.8 (H) 11.7 - [place] 15.7 g/dL [facility] Hematocrit 47.3 (H) 35.0 - [place] 47.0 % [facility] MCV 87 77 - 100 [facility] MCH 28.9 26.5 - [place] 33.0 pg [facility] MCHC 33.4 31.5 - [place] 36.5 g/dL [facility] RDW 13.1 10.0 - [place] 15.0 % [facility] Platelet Count 203 150 - [address] Diff Method Automated [facility] % Neutrophils 64.2 % [facility] % Lymphocytes 20.5 % [facility] % Monocytes 12.3 % [facility] % Eosinophils 2.1 % [facility] % Basophils 0.7 % [facility] % Immature 0.2 % [place] Granulocytes [facility] Nucleated RBCs 0 0 /100 [facility] Absolute 3.9 1.3 - 7.[address] [place] Neutrophil [address] [place] [address] Absolute 1.3 1.0 - 5.8 [place] Lymphocytes [address] [place] [address] Absolute 0.8 0.0 - 1.3 [place] Monocytes [address] [place] [address] Absolute 0.1 0.0 - 0.7 [place] Eosinophils [address] [place] [address] Absolute 0.0 0.0 - 0.2 [place] Basophils [address] [place] [address] Abs Immature 0.0 0 - 0.4 [place] Granulocytes [address] [place] [address] Absolute 0.0 [place] Nucleated RBC [facility] Specimen Anatomical Collection Method Collection Time Receive d Time (Source) Location / / Volume Laterality Blood specimen 05/23/2016 4:15 PM 016 4:18 (specimen) QUARTER LINING SMOOTHER PM QUAR[employer]ING SMOOTHER Kavitha Mann MD LAB - BLOOD ORDERABLES Performing Organization Address City/State/ZIP Code Phon e Number [facility] [address], [place] [address] [facility] [address] [place], [place] [address] [place] [address] (ABNORMAL) Comprehensive metabolic panel (BMP + Alb, Alk Phos, ALT, AST, Total. Bili, TP) (05/23/2016 4:15 PM QUARTER LINING SMOOTHER) [employer] Method Time Signature Sodium 137 133 - 144 [place] mmol/L [facility] Potassium 4.2 3.4 - 5.3 [place] mmol/L [facility] Chloride 104 98 - 110 [place] mmol/L [facility] Carbon Dioxide 28 20 - 32 [place] mmol/L [facility] Anion Gap 5 3 - 14 [place] mmol/L [facility] Glucose 76 70 - 99 [place] mg/dL [facility] Urea Nitrogen 22 (H) 7 - 21 [place] mg/dL [facility] Creatinine 0.89 0.50 - [place] 1.00 [facility] mg/dL [facility] GFR Estimate >90 >60 [place] Non GFR Calc mL/min/1. [address] GFR Estimate If >90 >60 [place] Black GFR Calc mL/min/1. RIDG ES 7m2 [facility] Calcium 8.7 (L) 9.1 - [place] 10.3 [facility] mg/dL [facility] Bilirubin Total 0.9 0.2 - 1.3 [place] mg/dL [facility] Albumin 4.6 3.4 - 5.0 [place] g/dL [facility] Protein Total 8.3 6.8 - 8.8 [place] g/dL [facility] Alkaline 162 65 - 260 [place] Phosphatase U/L [facility] ALT 29 0 - 50 [place] U/L [facility] AST 22 0 - 35 [place] U/L [facility] Specimen Anatomical Collection Method Collection Time Receive d Time (Source) Location / / Volume Laterality Blood specimen 05/23/2016 4:15 PM 016 4:18 (specimen) QUARTER LINING SMOOTHER PM QUARTER [employer]ING SMOOTHER Kavitha Mann MD LAB - BLOOD ORDERABLES Performing Organization Address City/State/ZIP Code Phon e Number [facility] [address], [place] [address] [facility] [address] [phone] documented in this encounter Visit Diagnoses Diagnosis Tachycardia with heart rate 100-120 beat s per minute - Primary Palpitations 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
--- OUTSIDE RECORDS SUMMARY | 2022-04-10 09:59 | XMS_ITS | Encounter Summary ---
:2000 Author Organization [place] Address [address] [place] [address]. [place] [address] Care Team Providers Name Role Phone Unavailable Primary Care Provider Unavailable Encounter Details Date Type Department Care Team Description 12/27/2015 Orders Only [facility] Cordell Juarez, S/P Fontan procedure [facility] Marie DUPREE (Primary Dx) [address] [place] [address] [place] [id number] [place], [place] [phone] (Wo rk) Social History Tobacco Use Types [...] 07/27/2022 Ancillary Procedure Cardiology Cordell Juarez MD [address] [place] [id number] (Wo rk) 07/27/2022 Office Visit Cardiology Cordell Juarez MD [address] [place] [address] [place] [address] (Wo rk) documented as of this encounter Results CT Chest Angio w/o [...] Fortino procedu re and completion Fontan in electric gas appliances demonstrator. Amplatzer occluder clos ure of Fontan fenestration [...] Fortino procedu re and completion Fontan in electric gas appliances demonstrator. Amplatzer occluder clos ure of Fontan fenestration [...]
--- OUTSIDE RECORDS SUMMARY | 2022-04-10 09:59 | XMS_ITS | Encounter Summary ---
:2000 Author Organization [facility] Address [address] [place] [address]. [place] [address] Care Team Providers Name Role Phone Unavailable Primary Care Provider Unavailable Reason for Visit Auth/Cert Specialty Diagnoses / Procedures Referred By Contact Refer red To Contact Surgery Diagnoses Double Outleft Right Ventricle, Left Ventricle Hypoplastic Ur Periop Procedures HEART CATH CHILD EP STUDY CHILD EP ABLATION CHILD [address] [place], [place] [address]LARY King [phone] Phone: Fax: Referral ID Status Reason Start Date Expiration Date Visits Requ ested Visits Authorized [id number] 1 1 Encounter Details Date Type Department Care Team Description 01/18/2016 - Hospital Encounter [facility] Akash Blackman MD [address] [place] [address] [phone] Hypoplastic left heart syndrome (Primary Dx); 01/20/2016 [facility] Pediatric Marisabel Ugarte MD [address] [place] [address] [phone] S/P Fontan procedure; Medical Surgical HYPOPLASTIC LEFT HEART SYND Unit [address] [place] [address] [place] [id number] Social History Tobacco Use Types Packs/Day Years Used Date Smoking Tobacco: Never Comments: none at home Alcohol Use Standard Drinks/Week Comments No 0 (1 standard drink = 0.6 oz pure alcoho l) Sex Assigned at Date Recorded Male 03/09/2019 1:21 PM CDT documented as of this encounter Last Filed Vital Signs Vital Sign Reading Time Taken Comments Blood Pressure 102/52 01/20/2016 12:44 PM CDT Pulse - - Temperature 36.7 ??C (98.1 ??F) 01/20/2016 12:44 PM CDT Respiratory Rate 16 01/20/2016 12:44 PM CDT Oxygen Saturation 98% 01/20/2016 12:44 PM CDT Inhaled Oxygen Concentration - - Weight 55.7 kg (122 lb 12.7 oz) 01/20/2016 6:36 AM CDT Height 160.7 cm (5' 3.25) 01/18/2016 6:50 AM CDT Body Mass Index 21.58 01/18/2016 6:50 AM CDT Body Mass Index Percentile 64.07 % 01/20/2016 6:36 AM CD T Growth Chart: [facility] (Boys, 2-20 Years) documented in this encounter Discharge Summaries Marisabel Ugarte MD - 01/20/2016 2:24 PM CDT [facility] Discharge Summary Pediatric Cardiology Date of Admission: [...] a Fontan procedure at the [facility] in outpatient coder. He had catheter closure of his Fontan fenestration at the [facility] in January 2007. He has been [...] Ugarte MD - 01/19/2016 2:00 PM CDT [facility] Pediatric Cardiology Progress Note Date of Service [...] resident. Will continue to monitor. Tamara Sampson CCLS - 01/18/2016 10:29 AM CDT 01/18/16 1023 Child Life Location Surgery (heart cath , Ep study, Ep ablation) Preparation Comment This investment underwriter introduced self and role to pt/family in [...] formally assessed Anxiety Appropriate Techniques Used to [place]/Comfort/Calm family presence;medication;other (see comments) (pt benefits from hearing reassurances or information in reassuring manner) Special Interests has his phone for distraction as needed Outcomes/Follow Up Provided Materials D/I: Pt may appear calm when first met or hearing information but is prone to anxiety. For example, when asked if he played the PoBia he said no, it was weird. Then stated, too many people from it. When asked to explain, he said You can get kidnapped. His dad said he didn't think so and pt retorted, Yeah, well, look it up on the internet. This investment underwriter commented that the internet is not totally [...] Howe MD - 01/18/2016 9:39 AM CDT [facility] Pre cath progress note Jude Bills 15 year old 2000 [id number] Magda Winchester HPI: Jude Bills is a [...] Xiopatch. Soo Srivastava MD Fellow, Cardiology Pager: [phone] [facility] documented in this encounter H&P Notes Marisabel Ugarte MD - 01/18/2016 1:24 PM CDT [facility] [place] History and Physical Pediatric Cardiology Date of [...] and completion of a Fontan procedure at [facility] in outpatient coder. He had catheter closure of his Fontan fenestration at the [facility] in January 2007. He has [...] Fortino now with Fenestrated Fontan Done at [place] ??? 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 Esophageal reflux ??? Congenital [...] History Narrative: Social History Social History Narrative Luke lives at home with parents, was adopted as an . Family History I have reviewed this patient's family history and updated it with pertinent information if needed. Family History Problem Relation Age of Onset ??? Adopted: Yes ??? Unknown/Adopted child adopted from [place] at 10mo of age ??? Unknown/Adopted ??? [...] Antibody Screen Neg Test Valid Only At [facility] Specimen Expires 01/21/2016 Crossmatch Red Blood Cells INR Result Value Ref Range INR 1.38 (H) 0.86 - 1.14 Blood component Result Value Ref Range Unit Number [id number] Blood Component Type Red Blood Cells Leukocyte Reduced Division Number 00 Status of Unit No longer available 01/18/2016 1250 Blood Product Code [id number] Unit Status RET Blood component Result Value Ref Range Unit Number [id number] Blood Component Type Red Blood Cells Leukocyte Reduced Division Number 00 Status of Unit No longer available 01/18/2016 1250 Blood Product Code [id number] Unit Status RET Digoxin level Result Value [...] requested. Waiting for room to be ready. Scalp Specialist is releading air from right groin safeguard [...] Medication Reconciliation and Education - Kg Dominguez [facility] - 01/20/2016 11:31 AM CDT Discharge medication review for this patient completed. Pharmacist provided medication teaching for discharge with a focus on new medications/dose changes. The discharge medication list was reviewed with Mom, Dad & Jude and the following points were discussed, as [...] Goal: Goal Outcome Summary Outcome: No Change Luke was afebrile overnight and denied pain. Continued [...] had this pain before and quickly subsided. [place] team aware and came to assess. Metoprolol [...] 6, section 70.4. Sincerely, Luba Merchant MD Air Intelligence Specialist, Utilization Review/ Case Management [facility] Services Admission Status; Secondary Review Determination [facility] [phone] office [phone] Plan of Care - Catarina Santiago RN [...] Kimball MD - 01/18/2016 11:02 AM CDT [facility] [place] BRIEF POST-PROCEDURE NOTE Pre-procedure diagnosis 1. DORV, d-TGA, hypoplastic left ventricle, s/p bidirectional Fortino and extracardiac Fontan, s/p device closure of Fontan fenestration 2. SVT on Ziopatch Post-procedure diagnosis same Procedure 1. Electrophysiology study Staff Dr Kimball Office Services Associate(s) Natalia Conner Anesthesia general anesthesia via LMA Access 7F RFV, 5F RFA Specimens None IV contrast 0 mL Heparinized Yes Blood loss 3 mL Complications None Preliminary findings: ?? Long RP atrial tachycardia was induced with Isuprel and baseline HR 120 with double stimulation at 400/220/220 ?? Cycle length of tachycardia was 283 ms with 1:1 conduction RP 157 ms, WI 125 ms. ?? Tachycardia spontaneously terminated with ventricular electrogram Plan: 1. Transfer to PACU 2. Admit to 6th floor after bedrest complete in PACU due to single ventricle physiology and needs franck monitored on telemetry while being started on Metoprolol therapy 3. Start Metoprolol 25 mg PO QD from tonight 4. EKG today 5. Holter monitor to be started tomorrow afternoon. Soo Srivastava MD Pediatric Cardiology [facility] This patient has been seen and evaluated [...] 01/18/2016 9:52 AM CDT PEDIATRIC CARDIAC ELECTROPHYSIOLOGY [address] [place] [phone] ELECTROPHYSIOLOGY PROCEDURE NOTE Name: Jude Bills Date of : 2000 Date of Procedure: 01/18/2016 Attending: Chari Kimball MD Office Services Associate: Natalia Jasso Fellow: Aleyda Vann MD Referring: Cordell Juarez MD INTRODUCTION/HISTORY: Jude Blils is a 15 year old male with [...] Wide QRS axis Abnormal Cycle length 894 WI interval 149 QRS duration 114 QT interval [...] ERP - 290 AVN ERP (fast) 310 (SF=833 ms) - AVN ERP (slow) < 290 (QT=035 ms) - AP ERP Not present Not [...] length Paced cycle length PPI Corrected SNRT 704 011 3045 153 316 943 5469 135 612 697 2262 192 840 280 4539 111 505 646 7493 106 118 123 9626 362 777 582 0731 1192 116 612 4191 1212 SVT Long RP atrial tachycardia was induced with Isuprel and baseline HR 120 with double stimulation at 400/220/220. Cycle length of tachycardia was 283 ms with 1:1 conduction RP 157 ms, WI 125 ms. Tachycardia spontaneously terminated with ventricular [...] Pediatric Cardiac Electrophysiology Billing codes: Diagnostic study 35530 Comprehensive EP study 64197 Isuprel administration 46702 Atrial pacing 40283 Induction of arrhythmia by pacing 46950 Tachycardia mapping This patient has been seen [...] Howe MD - 01/18/2016 9:42 AM CDT [facility] BRIEF POST-PROCEDURE NOTE Pre Cath CRISP score 3 Risk Category 2 Pre-procedure diagnosis DORV, d-TGA, hypoplastic LV s/p bidirectional Fortino and extracardiac Fontan,s/p device closure of Fontan fenestration Post-procedure diagnosis same Procedure 1. right and retrograde left heart cath 2. angiography Staff Dr. Kathleen Office Services Associate(s) Natalia Conner Anesthesia general anesthesia via LMA [...] cath procedure Soo Srivastava MD Pediatric Cardiology [facility] documented in this encounter Plan of Treatment Upcoming Encounters Date Type Specialty Care Team Description 07/27/2022 Ancillary Procedure Cardiology Cordell Juarez MD [address] [place], [place] [phone] (Wo rk) 07/27/2022 Office Visit Cardiology Cordell Juarez MD [address] [place] [address] (Wo rk) documented as of this encounter [...] INR 1.22 (H) 0.86 - 1.14 U [facility] Specimen Anatomical Collection Method Collection Time Receive d Time (Source) Location / / Volume Laterality Blood specimen 01/20/2016 7:56 AM 016 7:57 (specimen) CDT AM CDT Kirsten Carter MD LAB - BLOOD ORDERABLES Performing Organization Address City/State/ZIP Code Phon e Number U OF [facility] (ABNORMAL) INR (01/19/2016 3:29 PM CDT) P athologist Signature INR 1.23 (H) 0.86 - 1.14 U [facility] Specimen Anatomical Collection Method Collection Time Receive d Time (Source) Location / / Volume Laterality Blood specimen 01/19/2016 3:29 PM 016 3:30 (specimen) CDT PM CDT Tammy Salvador MD LAB - BLOOD ORDERABLES Performing Organization Address City/[facility]/ZIP Code Phon e Number [facility] (ABNORMAL) Holter set up 48 hrs pediatric (01/19/2016 12:00 PM CDT) Narrative [facility] - 01/19/2016 12:[address] [facility] PEDIATRIC MEDICAL SURGICAL UNIT 6 [phone] [facility] [phone] 01/19/2016 Patient: ??Jude Bills Chart: [id number] : ??2000 Age: ??15 year old Sex: ??male Procedure: ??Event Monitor Placed:holter placed on pt on 01/19/2016 at 1200 and can be removed on 01/21/2016 a t 1200. Please see scanned document for result once interpr etation is completed. Protective Clothing Issuer performing hook-up: ??Nadira Garcia 02/01/2016 at 12:31PM I left a voicemail on [phone] (Thought[employer] sangita's phone#) to give the EKG lab a phone call back regarding the holter that has not been returned. Lilo Mahajan, MS ____ 02/03/16 at 15:00... The holter monitor was returned to the [facility]. HOLTER MONITOR PRELIMINARY DATA A 48 [...] on February 03, 2016 at 3:56 PM [facility] Diagnostics - EKG Lab HOLTER [...] AM Tammy Salvador MD CV CARDIAC SERVICES ORDMigel THOMPSON Performing Organization Address City/State/ZIP Code Phon e Number [facility] EKG 12 lead - pediatric (01/19/2016 10:27 AM CDT) [facility] meQuilibrium Method Time Signature Interpretation ECG Click View RADIOLOGY Image link RESULTS to view waveform and result Specimen (Source) Anatomical Collection Method Collection Time Re ceived Time Location / / Volume Laterality 01/19/2016 10:27 AM CDT Tammy Salvador MD ECG ORDERABLES Performing Organization Address City/State/ZIP Code Phon e Number RADIOLOGY RESULTS ABO/Rh type and screen - PCU collect line draw (01/18/2016 12:47 PM CDT) [facility] Method Time Signature ABO Canceled, [facility] Test credited [facility] RH(D) Canceled, [facility] Test credited [facility] Antibody Canceled, [facility] Screen Test credited [facility] T[facility] Test Valid Not done [facility] Only At [facility] Specimen 01/21/2016 [facility] Expires [facility] Blood Bank Duplicate [facility] Comment request [facility] Specimen Anatomical Collection Method Collection Time Receive d Time (Source) Location / / Volume Laterality Blood specimen 01/18/2016 12:47 6 (specimen) PM CDT 12:52 PM CDT Aleyda Vann MD LAB - BLOOD BANK TEST ORDER Performing Organization Address City/State/ZIP Code Phon e Number [facility] [address] [place] [address] [facility] [place] [place] EKG 12 lead - pediatric (01/18/2016 11:56 AM CDT) Patholo gist Method Time Signature Interpretation ECG Click View RADIOLOGY Image link RESULTS to view waveform and result Specimen (Source) Anatomical Collection Method Collection Time Re ceived Time Location / / Volume Laterality 01/18/2016 11:56 AM CDT Loly [facility] ECG ORDERABLES Performing Organization Address City/State/ZIP Code Phon e Number RADIOLOGY RESULTS Peds EP Study/Ablation (01/18/2016 10:54 AM CDT) Specimen (Source) Anatomical Location Collection Method / Collectio n Time Received Time / Laterality Volume Narrative [facility] - 01/25/2016 12:12 PM CDT The results/report for this Cardiology exam is scanned in to [employer] [facility] renal and can be found under the Media Tab in the [facility] Review activity. Marisabel Ugarte MD CV ELECTROPHYSIOLOGY ORDERAB LES Performing Organization Address City/State/ZIP Code Phon e Number [facility] (ABNORMAL) Activated [...] - ENTER/EDIT PO CT Performing Organization Address City/State/ZIP Code Phon e [...] - ENTER/EDIT PO CT Performing Organization Address [facility] Phon e Number FV POINT OF CARE TEST, HANDHELD METER POINT OF CARE TEST, HANDHELD METER Peds heart cath (01/18/2016 9:30 AM CDT) Specimen (Source) Anatomical Location Collection Method / Collectio n Time Received Time / Laterality Volume Narrative [facility] - 01/25/2016 12:12 PM CDT The results/report for this Cardiology exam is scanned in to [employer] [facility] and can be found under the Media Tab in the [employer] Review activity. Marisabel Ugarte MD CV CARDIAC CATH ORDERABLES Performing Organization Address [facility] Phon e Number [facility] (ABNORMAL) Activated clotting [...] - ENTER/EDIT PO CT Performing Organization Address [facility] Phon e Number FV POINT OF CARE TEST, HANDHELD METER POINT OF CARE TEST, HANDHELD METER (ABNORMAL) Oxyhemoglobin (01/18/2016 8:46 AM CDT) [facility] Method Time Signature Oxyhemoglobin 90 (L) 92 - 100 % POINT OF CARE Arterial TEST, BLOOD GAS/WHOLE BLOOD Specimen Anatomical Collection Method Collection Time Receive d Time (Source) Location / / Volume Laterality 01/18/2016 8:46 AM 6 CDT 12:40 PM CDT Akash Macedo MD LAB - BLOOD ORDERAB LES Performing Organization Address [facility] Phon e Number FV POINT OF CARE TEST, BLD GAS/WHOLE BLD POINT OF CARE TEST, BLOOD GAS/WHOLE BLOOD Lactic acid whole blood (01/18/2016 8:46 AM CDT) athologist Signature Lactic Acid 1.2 0.7 - [...] Chloride whole blood (01/18/2016 8:46 AM CDT) athologist Signature Chloride 106 96 - 110 [...] (ABNORMAL) Arterial Panel (01/18/2016 8:46 AM CDT) [facility] Method Time Signature pH Arterial 7.31 (L) [...] (ABNORMAL) Arterial Panel (01/18/2016 8:36 AM CDT) Patholo gist Method Time Signature pH Arterial 7.30 [...] Signature Digoxin Level 1.6 0.5 - 2.0 [facility] ug/L [facility] Specimen Anatomical Collection Method Collection Time Receive d Time (Source) Location / / Volume Laterality Blood specimen 01/18/2016 7:36 AM 016 7:48 (specimen) CDT AM CDT Akash Macedo MD LAB - BLOOD ORDERAB LES Performing Organization Address City/[facility]/ZIP Code Phon e Number [address] [address] [facility] [place] [place] Blood component (01/18/2016 7:30 AM CDT) [facility] Method Time Signature Unit Number [id number] [facility] Blood Red Blood [facility] Component Cells [facility] Reduced BANK Division 00 [facility] Number [facility] Status of No longer [facility] Unit available [facility] 01/18/2016 [facility] 1250 BANK Blood Product [id number] [facility] Unit Status RET [facility] Specimen Anatomical Collection Method Collection Time Receive d Time (Source) Location / / Volume Laterality 01/18/2016 7:30 AM 6 7:42 CDT AM CDT Akash Macedo MD LABORATORY Performing Organization Address City/[facility]/ZIP Code Phon e Number [address] [address] [facility] [place] Blood component (01/18/2016 7:30 AM CDT) WellGenolo gist Method Time Signature Unit Number [id number] [facility] Blood Red Blood [facility] Component Cells [facility] Leukocyte [place] [facility] Reduced BANK Division 00 [facility] Number [facility] Status of No longer [facility] Unit available [facility] 01/18/2016 [facility] 1250 BANK Blood Product [id number] [facility] Unit Status RET [facility] Specimen Anatomical Collection Method Collection Time Receive d Time (Source) Location / / Volume Laterality 01/18/2016 7:30 AM 6 7:42 CDT AM CDT Akash Macedo MD LABORATORY Performing Organization Address City/State/ZIP Code Phon e Number [address] [address] [facility] [place] [place] (ABNORMAL) INR (01/18/2016 7:30 AM CDT) P athologist Signature INR 1.38 (H) 0.86 - 1.14 [facility] Specimen Anatomical Collection Method Collection Time Receive d Time (Source) Location / / Volume Laterality Blood specimen 01/18/2016 7:30 AM 016 8:05 (specimen) CDT AM CDT Akash Macedo MD LAB - BLOOD ORDERAB LES Performing Organization Address City/[facility]/ZIP Code Phon e Number [address] [address] [facility] [place] [place] ABO/Rh type and screen (01/18/2016 7:30 AM CDT) [facility] meQuilibrium Method Time Signature Units Ordered 2 [facility] ABO AB [facility] RH(D) Pos [facility] Antibody Neg [facility] Screen [facility] Test Valid [facility] w Hospital Specimen 01/21/2016 [facility] Expires [facility] Crossmatch Red Blood [facility] Specimen Anatomical Collection Method Collection Time Receive d Time (Source) Location / / Volume Laterality Blood specimen 01/18/2016 7:30 AM 016 7:42 (specimen) CDT AM CDT Akash Macedo MD LAB - BLOOD BANK TE ST ORDER Performing Organization Address City/[facility]/ZIP Code Phon e Number [address] [address] [facility] [place] [place] EKG 12 lead - pediatric (01/18/2016 7:18 AM CDT) [facility] meQuilibrium Method Time Signature Interpretation ECG Click View RADIOLOGY Image link RESULTS to view waveform and result Specimen (Source) Anatomical Collection Method Collection Time Re ceived Time Location / / Volume Laterality 01/18/2016 7:18 AM CDT Aleyda Vann MD ECG ORDERABLES Performing Organization Address City/State/ZIP Code Phon e Number RADIOLOGY RESULTS documented in this encounter Visit Diagnoses Diagnosis HYPOPLASTIC LEFT HEART SYND - Primary 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 Other postprocedural status Atrial tachycardia (H) Other specified cardiac dysrhythmias documented in this encounter Administered Medications Inactive Administered Medications - up to 3 most recent administrations Medication Order MAR Action Action Date Dose Rate Site acetaminophen (TYLENOL) chewable Given 01/20/2016 10:18 AM CDT 6 40 mg tablet 640 mg 640 mg (rounded from 649.35 mg = 11.7 mg/kg ? 55.5 kg), Oral, EVERY 4 HOURS PRN, mild pain, fever, Starting on Sat01/18/16 at 1145, Fever (temp greater than 38.0C, 100.4F). Max: 5 doses of acetaminophen containing products in 24 hours. If pain is not improved after 15 minutes, consider giving ibuprofen or other non-acetaminophen containing analgesic (if ordered) or call provider. Maximum acetaminophen dose from all sources= 75 mg/kg/day not to exceed 4 grams/day., Cardiac Post-procedure digoxin (LANOXIN) tablet 250 mcg Given 01/20/2016 8:06 AM CDT 250 mcg 250 mcg, Oral, DAILY, First dose on Sat01/19/16 at 0800 Given 01/19/2016 8:02 AM CDT 250 mcg lisinopril (PRINIVIL,ZESTRIL) tablet 10 mg Given 01/20/2016 8:06 AM CDT 10 mg 10 mg, Oral, DAILY, First dose on Sat01/18/16 at 1600 Given 01/19/2016 8:02 AM CDT 10 mg Given 01/18/2016 5:06 PM CDT 10 mg loratadine (CLARITIN) tablet 10 mg Given 01/20/2016 8:05 AM CDT 10 mg 10 mg, Oral, DAILY, First dose on Sat01/19/16 at 0800 Given 01/19/2016 8:02 AM CDT 10 mg metoprolol (LOPRESSOR) tablet 25 mg Given 01/18/2016 7:57 PM CDT 25 mg 25 mg, Oral, 2 TIMES DAILY, First dose on 8/3/16 at 2000, For Adults, Hold if HR less than 60 bpm. Hold 01/19/16 AM dose until cardio reassess metoprolol (LOPRESSOR) tablet 25 mg Given 01/20/2016 10:18 AM CDT 25 mg 25 mg, Oral, 2 TIMES DAILY, First dose (after last modification) on [facility] 01/19/16 at 0830, For Adults, Hold if HR less than 60 bpm. Hold 01/19/16 AM dose until cardio reassess Given 01/19/2016 8:10 PM CDT 25 mg Given 01/19/2016 9:30 AM CDT 25 mg sodium chloride (PF) 0.9% PF flush 3 mL Given 01/20/2016 8:06 AM CDT 3 mLs 3 mL, Intracatheter, EVERY 8 HOURS, First dose on Sat01/18/16 at 1600, And Q1H PRN, to lock peripheral IV dormant line. Given 01/20/2016 12:11 AM CDT 3 mLs Given 01/19/2016 3:34 PM CDT 3 mLs spironolactone (ALDACTONE) tablet 25 mg Given 01/20/2016 8:06 AM CDT 25 mg 25 mg, Oral, DAILY, First dose (after last modification) on [facility] 01/19/16 at 0800 Given 01/19/2016 8:02 AM CDT 25 mg warfarin (COUMADIN) tablet 2.5 mg Given 01/18/2016 6:23 PM CDT 2.5 mg 2.5 mg, Oral, ONCE AT 6PM, On Sat01/18/16 at 1800, For 1 dose warfarin (COUMADIN) tablet 5 mg Given 01/19/2016 6:02 PM CDT 5 mg 5 mg, Oral, ONCE AT 6PM, On [facility] 01/19/16 at 1800, For 1 dose documented in this encounter Active and Recently Administered Medications Times are shown in CDT. Scheduled Medication Order 01/18/2016 01/19/2016 01/20/2016 digoxin (LANOXIN) tablet 250 mcg (CANCELED) 0802 (Given - Provider: Dalila Stephens RN) 08 (Given - Provider: Faith Weinstein RN) 250 mcg, Oral, DAILY, First dose on [facility] 01/19/16 at 0800 lisinopril (PRINIVIL,ZESTRIL) tablet 10 mg (CANCELED) 1706 (Given - Provider: Pastora Santoyo RN) 0802 (Given - Provider: Dalila Stephens RN) 08 ( Given - Provider: Faith Weinstein RN) 10 mg, Oral, DAILY, First dose on Sat01/18/16 at 1600 loratadine (CLARITIN) tablet 10 mg (CANCELED) 08 (Given - Provider: Dalila Stephens RN) 08 (Given - Provider: Faith Weinstein RN) 10 mg, Oral, DAILY, First dose on Sat01/19/16 at 0800 metoprolol (LOPRESSOR) tablet 25 mg (CANCELED) 1956 (G iven - Provider: Pastora Santoyo RN - [...] Provider: Faith Weinstein RN - Comment: Per , ok to give even if HR below 60) 25 mg, Oral, 2 TIMES DAILY, First dose o n Sat01/19/16 at 0830, For Adults, Hold if HR less than 60 bpm. Hold 01/19/16 AM dose until cardio reassess sodium chloride (PF) 0.9% PF flush 3 mL (CANCELED) 160 7 (Given - Provider: Pastora Santoyo RN)2334 (Given - Provider: Catarina Santiago, BRIELLE) 0806 (Given - Provider: Dalila Stephens RN)1534 (Given - Provider: Gayathri Burleson RN) 0011 (Given - Provider: Catarina Santiago RN)0806 (Given - Provider: Faith Weinstein RN) 3 mL, Intracatheter, EVERY 8 HOURS, Firs t dose on Sat01/18/16 at 1600, And Q1H PRN, to lock peripheral IV dormant line. spironolactone (ALDACTONE) tablet 25 mg (CANCELED) 08 (Given - Provider: Dalila Stephens RN) 08 (Given - Provider: Faith Weinstein RN) 25 mg, Oral, DAILY, First dose on Suze 01/19/16 at 0800 warfarin (COUMADIN) tablet 2.5 mg (COMPLETED) 182 (Gi eliot - Provider: Pastora Santoyo RN) 2.5 mg, Oral, ONCE AT 6PM, 01/18/16 at 1800, For 1 dose warfarin (COUMADIN) tablet 5 mg (COMPLETED) 180 (Given - Provider: Gayathri Burleson, BRIELLE) 5 mg, Oral, ONCE AT 6PM, Suze 01/19/16 at 1800, For 1 dose Continuous Medication Order 01/18/2016 01/19/2016 01/20/2016 dexmedetomidine (PRECEDEX) 4 mcg/mL in NaCl 0.9 % 50 m L infusion (CANCELED) 1040 (New Bag - Provider: Lelia Cuellar APRN CULLET CRUSHER)1120 (Stopped - Provider: Lelia Cuellar APRN CULLET CRUSHER) 0.2 mcg/kg/hr ? 55.5 kg (2.775 mL/hr, [...] - Provider: Akash Macedo MD) PRN, Starting 01/18/16 at 1049, Intra-procedure documented in this encounter
--- OUTSIDE RECORDS SUMMARY | 2022-04-10 09:59 | XMS_ITS | Encounter Summary ---
:2000 Author Organization [facility] Address [address] [place] [address]. [place] [address] Care Team Providers Name Role Phone Unavailable Primary Care Provider Unavailable Reason for Visit Reason Onset Date Comments Refill Request 02/28/2016 Encounter Details Date Type Department Care Team Description 02/28/2016 Refill [facility] Pediatric Cordell Juarez MD Refill Request Specialty Clinic [place] [id number] [facility] [place] [address] [facility] [address] [phone] Social History Tobacco Use Types Packs/Day Years [...] 07/27/2022 Ancillary Procedure Cardiology Cordell Juarez MD [address] [place], [place] [id number] [place] [address] (Wo rk) 07/27/2022 Office Visit Cardiology Larry, Cordell skelton MD [address] [place] [address] (Wo rk) documented as of this encounter Visit Diagnoses Diagnosis 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
--- OUTSIDE RECORDS SUMMARY | 2022-04-10 10:00 | XMS_ITS | Encounter Summary ---
:2000 Author Organization [place] Address [address] [facility] [place] [address] Care Team Providers Name Role Phone Unavailable Primary Care Provider Unavailable Encounter Details Date Type Department Care Team Description 05/14/2014 Orders Only [facility] Cordell Juarez, [facility] Peds HEART SYND (Primary Electrocardiology [address] [facility] Dx) [address] [place] [id number] [phone] (Wo rk) Social History Tobacco Use Types [...] 07/27/2022 Ancillary Procedure Cardiology Cordell Juarez MD [facility] [address] [place] [address] (Wo rk) 07/27/2022 Office Visit Cardiology Cordell Juarez MD [facility] [address] [place] [address] (Wo rk) documented as of this encounter Procedures Procedure Name Priority Date/Time Associated Diagnosis Comme nts EKG 12 LEAD - Routine 04/15/2014 12:17 PM Results for this PEDIATRIC CDT procedure are i n the results section. 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
--- OUTSIDE RECORDS SUMMARY | 2022-04-10 10:00 | XMS_ITS | Encounter Summary ---
:2000 Author Organization [address] [place] [address] Care Team Providers Name Role Phone Unavailable Primary Care Provider Unavailable Reason for Visit Reason Onset Date Comments Symptoms 07/30/2013 still having respira tory symptoms Encounter Details Date Type Department Care Team Description 07/30/2013 Telephone [facility] Cordell Juarez Symp toms (still having Pediatric Specialty MD respiratory symptoms) Clinic [address] [facility] [address] [place] [address] [phone] Social History Tobacco Use Types Packs/Day Years Used Date Smoking Tobacco: Never Comments: none at home Alcohol Use Standard Drinks/Week Comments Not Asked 0 (1 standard drink = 0.6 oz pure alcoho l) Sex Assigned at Date Recorded Male 03/09/2019 1:21 PM CDT documented as of this encounter Miscellaneous Notes Telephone Encounter - Court Martin - 07/30/2013 10:47 AM CST Jude's mom, Jaimie, called with concerns about Jude still having respiratory symptoms. She said that he is winded easily, some nasal congestion and non productive coughs. She was thinking they may need to be seen but wasn't sure which way to go. The pcp, local hospital or [facility] wondering what Dr. Juarez thinks. I contacted Dr. Juarez and she gave mom a call and told her to get an appointment for him at their primary clinic. L SUPERINTENDENT documented in this encounter Plan of Treatment Upcoming Encounters Date Type Specialty Care Team Description 07/27/2022 Ancillary Procedure [facility]iology Cordell Juarez [facility] [address] [facility] [address] [place] [address] (Wo rk) 07/27/2022 Office Visit Cardiology Cordell Juarez MD [address] [place] [address] (Wo rk) documented as of this encounter Visit Diagnoses Not on filedocumented in this encounter
--- OUTSIDE RECORDS SUMMARY | 2022-04-10 10:00 | XMS_ITS | Encounter Summary ---
:2000 Author Organization [address] [place] [address] Care Team Providers Name Role Phone Unavailable Primary Care Provider Unavailable Encounter Details Date Type Department Care Team Description 04/15/2014 Telephone [facility] Pediatric Cordell Juarez MD Specialty Clinic [address] [facility] [place] [address] [facility] [place] [address] [phone] Social History Tobacco Use Types Packs/Day Years Used Date Smoking Tobacco: Never Comments: none at home Alcohol Use Standard Drinks/Week Comments Not Asked 0 (1 standard drink = 0.6 oz pure alcoho l) Sex Assigned at Date Recorded Male 03/09/2019 1:21 PM CDT documented as of this encounter Miscellaneous Notes Telephone Encounter - Kim Summers MA - 04/15/2014 10:[address] Juarez I received a call from Dad, (Bear Bills), at 10am stating that Jude is having complications. Judeis very nervous. They are on their way to [place]. Dad wanted you to know. Thanks documented in this encounter Plan of Treatment Upcoming Encounters Date Type Specialty Care Team Description 07/27/2022 Ancillary Procedure Cardiology Cordell Juarez MD [address] [place] [address] (Wo rk) 07/27/2022 Office Visit Cardiology Cordell Juarez MD [address] [place] [address] (Wo rk) documented as of this encounter Visit Diagnoses Not on filedocumented in this encounter
--- OUTSIDE RECORDS SUMMARY | 2022-04-10 10:00 | XMS_ITS | Encounter Summary ---
:2000 Author Organization [place] Address [address] [place] [address]. [place] [address] Care Team Providers Name Role Phone Unavailable Primary Care Provider Unavailable Reason for Visit (Routine) - Closed Specialty Diagnoses / Procedures Referred By Contact Refer red To Contact Radiology / Radiology. Diagnoses EPIC ORDER Sched with mom Jaimie [phone] Ur Mri Procedures MR CHEST W ANGIOGRAM [address] [place] [phone] Phone: Referral ID Status Reason Start Date Expiration Date Visits Requ ested Visits Authorized [id number] Closed 05/12/2014 05/12/2015 1 1 Encounter Details Date Type Department Care Team Description 05/24/2014 Hospital Encounter [facility] Cordell Juarez , Atypical chest pain; [facility] Imaging Single ventricle, heterotaxia syndrome [facility] [address] [place] [id number] Social History Tobacco Use Types Packs/Day Years [...] Take 1 tablet (10 90 tablet 10 05/18/2013 015 (PRINIVIL,ZESTRIL) 10 MG mg) by mouth tabletIndications: daily Hypoplastic left heart syndrome Loratadine (CLARITIN PO) Take 10 mg by 0 03/06/2017 mouth daily Reported on 09/14/2016 omeprazole (PRILOSEC) 20 MG Take 1 capsule 90 capsule 3 02/201301/17/2016 capsuleIndications: History (20 mg) by mouth of gastritis daily warfarin (COUMADIN) 2 MG Take one tablet 90 tablet 0 201307/23/2014 tabletIndications: S/P every Saturday, Fontan procedure Saturday, Saturday and Saturday. warfarin (COUMADIN) 4 MG Take one tablet 90 tablet 2 201107/23/2014 tabletIndications: on Saturday and Hypoplastic left heart syndrome documented as of this encounter Plan of Treatment Upcoming Encounters Date Type Specialty Care Team Description 07/27/2022 Ancillary Procedure Cardiology Cordell Juarez MD [address] [place] [address] (Wo rk) 07/27/2022 Office Visit Cardiology Cordell Juarez MD [address] [place], [place] [address] [address] (Wo rk) documented as of this encounter Procedures Procedure Name Priority Date/Time Associated Diagnosis Comme nts MRA CHEST W Routine 05/24/2014 10:[address] pain Results for this CONTRAST STRIPPER LATEX Single ventricle, procedure are in heterotaxia syndrome the res ults section. documented in this encounter Results MRA Chest w Contrast Angiogram (05/24/2014 10:53 AM STRIPPER LATEX) Anatomical Region Laterality Modality Chest, SUBRAD IR PROCEDURE, UMP MR MRA M agnetic Resonance Specimen (Source) Anatomical Location Collection Method / Collectio n Time Received Time / Laterality Volume Impressions 05/24/2014 4:40 PM STRIPPER LATEX IMPRESSION: 1. 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 2. Normal systemic right ventricular siz e and systolic function. 3. The Fontan and bilateral Fortino anasto dyan appear widely patent. Co-read with Dr. 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 TECHNIQUE: Using a 1.5-Jeannie MRI scanner , the following sequences were obtained of the heart: Black blood T2 black lacy images were obtained in 3 orthogonal planes. TrueFISP multiplanar localizers were obtained. TrueFISP multiplanar cine images were ob tained in short axis, four chamber, left ventricular two and three chamber, and right ventricular outflow tract planes. Precontrast and po stcontrast dynamic MR angiographic images (TWIST) were obtaine d in an oblique sagittal plane. Intravenous administration of con trast was unremarkable. ECG gated, respiratory navigated 3D TrueFISP high-resolution images of the chest is obtained in the oblique sagitta l plane. Flow quantification was obtained at the level of the aortic valve, inferior vena cava, superior vena cava, right pulmonary chidi ry, and left pulmonary artery. Late gadolinium myocardial imaging was p erformed. 3D reconstruction and volumetric postprocessing was perfor med by flour distributor on an independent workstation. FINDINGS: SITUS: There is a normal spleen in the l eft upper quadrant. There is situs solitus in the chest, as demonstra julia by a normal airway pulmonary artery relationship bilaterall y. CAVAE/PULMONARY ARTERY: Single right-masoud ed inferior vena cava drains unobstructed via an extracardiac Fontan conduit to the branch pulmonary arteries. Bilateral right and left superior vena cava drain unobstructed to the branch pulmonary art eries via bilateral bidirectional Fortino anastomoses. PULMONARY VEINS: Two right and two left pulmonary veins drain into the left atrium unobstructed. ATRIA: Large interatrial communication. The atrial sizes are normal. ATRIOVENTRICULAR CONNECTION: Concordant. Separate mitral and tricuspid valves without evidence of significant r egurgitation or stenosis. VENTRICLES: D-loop ventricles with levoc ardia. Mild hypoplasia of the left ventricle with mildly depressed sys tolic function. The right ventricle is of normal size with good ve ntricular systolic function. There is right ventricular hypertrophy. Large interventricular communication. No myocardial hyperenhanc ement identified on early or delayed post gadolinium imaging. VENTRICULOARTERIAL CONNECTION: Discordan t. Trileaflet aortic valve without regurgitation or stenosis. The a jagdeep arises from the right ventricle. AORTA AND SUPRA-AORTIC VESSELS: A right- sided aortic arch is demonstrated with mirror image cervical branching pattern. No evidence of patent ductus arteriosus, coarctation , or aortopulmonary collateral arteries. The coronary arteries are not well visualized in this study. QUANTITATIVE MEASUREMENTS: Weight: 50 kg. Height: 155 cm. BSA: 1.47 m^2. HR: 70 bpm. LEFT VENTRICULAR VOLUME RESULTS ? ED volume: ?55.19 ml ? ED volume index: ?37.66 ml/m2 ? ED volume/HT: ? 35.62 ml/m ? ES volume: ?31.40 ml ? ES volume index: ?21.43 ml/m2 ? Stroke volume: ?23.79 ml ? Stroke volume index: ??16.24 ml/m2 ? Cardiac output: ? 1.66 l/min ? Cardiac output index: 1.13 l/(m2*min) ? Ejection fraction: ?43.10 % ? LV mass ED: ? 35.24 g ? LV mass ED index: ? 24.05 g/m2 ? LV mass ED/HT: ?22.74 g/m ? LV mass ES: ? 37.02 g ? LV mass ES index: ? 25.26 g/m2 ? RIGHT VENTRICULAR VOLUME RESULTS ? ED volume: ?113.80 ml ? ED volume index: ?77.67 ml/m2 ? ED volume/HT: ? 73.45 ml/m ? ES volume: ?47.76 ml ? ES volume index: ?32.60 ml/m2 ? Stroke volume: ?66.04 ml ? Stroke volume index: ??45.07 ml/m2 ? Cardiac output: ? 4.61 l/min ? Cardiac output index: 3.14 l/(m2*min) ? Ejection fraction: ?58.03 % ? Aortic flow quantification: 4.78 L/min Inferior vena cava flow quantification: 2.26 L/min Right Superior vena cava flow quantifica tion: 0.13 L/min Left Superior vena cava flow quantificat ion: 0.13 L/min Right pulmonary artery flow quantificati on: 0.4 L/min Left pulmonary artery flow quantificatio n: 0.4 L/min Caval and Pulmonary artery flow measurem ents do not equate as expected so these results are of questional accur acy. Procedure Note Max Eng MD - 05/24/2014Form atting of this note might be different from the original. 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 TECHNIQUE: Using a 1.5-Jeannie MRI scanner , the following sequences were obtained of the heart: Black blood T2 black lacy images were obtained in 3 orthogonal planes. TrueFISP multiplanar localizers were obtained. TrueFISP multiplanar cine images were ob tained in short axis, four chamber, left ventricular two and three chamber, and right ventricular outflow tract planes. Precontrast and po stcontrast dynamic MR angiographic images (TWIST) were obtaine d in an oblique sagittal plane. Intravenous administration of con trast was unremarkable. ECG gated, respiratory navigated 3D TrueFISP high-resolution images of the chest is obtained in the oblique sagitta l plane. Flow quantification was obtained at the level of the aortic valve, inferior vena cava, superior vena cava, right pulmonary chidi ry, and left pulmonary artery. Late gadolinium myocardial imaging was p erformed. 3D reconstruction and volumetric postprocessing was perfor med by flour distributor on an independent workstation. FINDINGS: SITUS: There is a normal spleen in the l eft upper quadrant. There is situs solitus in the chest, as demonstra julia by a normal airway pulmonary artery relationship bilaterall y. CAVAE/PULMONARY ARTERY: Single right-masoud ed inferior vena cava drains unobstructed via an extracardiac Fontan conduit to the branch pulmonary arteries. Bilateral right and left superior vena cava drain unobstructed to the branch pulmonary art eries via bilateral bidirectional Fortino anastomoses. PULMONARY VEINS: Two right and two left pulmonary veins drain into the left atrium unobstructed. ATRIA: Large interatrial communication. The atrial sizes are normal. ATRIOVENTRICULAR CONNECTION: Concordant. Separate mitral and tricuspid valves without evidence of significant r egurgitation or stenosis. VENTRICLES: D-loop ventricles with levoc ardia. Mild hypoplasia of the left ventricle with mildly depressed sys tolic function. The right ventricle is of normal size with good ve ntricular systolic function. There is right ventricular hypertrophy. Large interventricular communication. No myocardial hyperenhanc ement identified on early or delayed post gadolinium imaging. VENTRICULOARTERIAL CONNECTION: Discordan t. Trileaflet aortic valve without regurgitation or stenosis. The a jagdeep arises from the right ventricle. AORTA AND SUPRA-AORTIC VESSELS: A right- sided aortic arch is demonstrated with mirror image cervical branching pattern. No evidence of patent ductus arteriosus, coarctation , or aortopulmonary collateral arteries. The coronary arteries are not well visualized in this study. QUANTITATIVE MEASUREMENTS: Weight: 50 kg. Height: 155 cm. BSA: 1.47 m^2. HR: 70 bpm. LEFT VENTRICULAR VOLUME RESULTS ED volume: 55.19 ml ED volume index: 37.66 ml/m2 ED volume/HT: 35.62 ml/m ES volume: 31.40 ml ES volume index: 21.43 ml/m2 Stroke volume: 23.79 ml Stroke volume index: 16.24 ml/m2 Cardiac output: 1.66 l/min Cardiac output index: 1.13 l/(m2*min) Ejection fraction: 43.10 % LV mass ED: 35.24 g LV mass ED index: 24.05 g/m2 LV mass ED/HT: 22.74 g/m LV mass ES: 37.02 g LV mass ES index: 25.26 g/m2 RIGHT VENTRICULAR VOLUME RESULTS ED volume: 113.80 ml ED volume index: 77.67 ml/m2 ED volume/HT: 73.45 ml/m ES volume: 47.76 ml ES volume index: 32.60 ml/m2 Stroke volume: 66.04 ml Stroke volume index: 45.07 ml/m2 Cardiac output: 4.61 l/min Cardiac output index: 3.14 l/(m2*min) Ejection fraction: 58.03 % Aortic flow quantification: 4.78 L/min Inferior vena cava flow quantification: 2.26 L/min Right Superior vena cava flow quantifica tion: 0.13 L/min Left Superior vena cava flow quantificat ion: 0.13 L/min Right pulmonary artery flow quantificati on: 0.4 L/min Left pulmonary artery flow quantificatio n: 0.4 L/min Caval and Pulmonary artery flow measurem ents do not equate as expected so these results are of questional accur acy. IMPRESSION IMPRESSION: 1. 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 2. Normal systemic right ventricular siz e and systolic function. 3. The Fontan and bilateral Fortino anasto dyan appear widely patent. Co-read with Dr. Constantine ENG MD Cordell Juarez MD IMG MRI ORDERABLES documented in this encounter Visit Diagnoses Diagnosis Atypical chest pain Other chest pain Single ventricle, heterotaxia syndrome Other specified congenital anomalies documented in this encounter
--- OUTSIDE RECORDS SUMMARY | 2022-04-10 10:00 | XMS_ITS | Encounter Summary ---
:2000 Author Organization [place] Address [facility] [place] [address] Care Team Providers Name Role Phone Unavailable Primary Care Provider Unavailable Reason for Visit Reason Comments RECHECK follow up dizziness and SOB Encounter Details Date Type Department Care Team Description 08/12/2013 Office Visit [facility] Cordell Juarez, [facility] PLASTIC LEFT Pediatric Specialty HEART SYND (Primary Clinic [address]) [address] [place] [address] [phone] Social History Tobacco Use Types Packs/Day Years Used Date Smoking Tobacco: Never Comments: none at home Alcohol Use Standard Drinks/Week Comments Not Asked 0 (1 standard drink = 0.6 oz pure alcoho l) Sex Assigned at Date Recorded Male 03/09/2019 1:21 PM CDT documented as of this encounter Last Filed Vital Signs Vital Sign Reading Time Taken Comments Blood Pressure 106/63 08/12/2013 2:56 PM MANAGER TRANSIT Pulse 74 08/12/2013 2:53 PM MANAGER TRANSIT Temperature - - Respiratory Rate 20 08/12/2013 2:53 PM MANAGER TRANSIT Oxygen Saturation 98% 08/12/2013 2:53 PM MANAGER TRANSIT Inhaled Oxygen Concentration - - Weight 41.2 kg (90 lb 13.3 oz) 08/12/2013 2:53 PM MANAGER TRANSIT Height 149.5 cm (4' 10.86) 08/12/2013 2:53 PM MANAGER TRANSIT Body Mass Index 18.43 08/12/2013 2:53 PM MANAGER TRANSIT Body Mass Index Percentile 43.94 % 08/12/2013 2:53 PM CS T Growth Chart: [facility] (Boys, 2-20 Years) documented in this encounter Progress Notes Cordell Juarez MD - 08/12/2013 5:08 PM CST Pediatric Cardiology Visit Patient: Jude Bills Date of : 2000 Age: 13 y 6 m Date of Visit: Aug 12, 2013 PCP: Deng Wallace MD Dear Deng Mata MD: I had the pleasure of seeing your patient, Jude Bills, in the Pediatric Cardiology Clinic at [facility] in [place] on Aug 12, 2013. 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 [facility] was last seen in clinic in December 2012 and is here with his mother and father for early followup due to a recent pneumonia. Jude developed itching, and hives on June 23 followed by swelling of his hands and face. Evaluation in our [facility] revealed a RML infiltrate and he was thought to have mycoplasma pneumonia. He was treated with azithromycin but had persistent cough and wh eezing after treatment. Reevaluation by his PMD on 07/30/13 was notable for slight left shift in his WBC count and he was given a 10 day course of Cefdinir which is complete today and Xopinex nebs and an albuterol inhaler. Jude reports that he is feeling better with more energy. He continues to cough and still has occasional green sputum but it is rare.He is no longer using the inhaler or nebs. He hascontinued with normal activities and is gradually regaining normal energy levels. The hives have resolved and he is continuing on claritin. He has had no fevers, chest pain, irregular heart beat, syncope or edema. He denies diarrhea or an upset stomach. He does have noisy breathing and snoring that is not new. His appetite is good. 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 Jude is back on his coumadin after hiatus last year. Jude is in the 8th grade at a new school in [place] and is doing well. He participates in basketball. He continues on his coumadin, and gets INR's checked in [place] with a goal range of 2-2.5. Current Outpatient Prescriptions Medication ??? dexmethylphenidate (FOCALIN XR) 15 MG 24 hr capsule ??? warfarin (COUMADIN) 2 MG tablet ??? omeprazole (PRILOSEC) 20 MG capsule ??? lisinopril (PRINIVIL,ZESTRIL) 10 MG tablet ??? Loratadine (CLARITIN PO) ??? warfarin (COUMADIN) 4 MG tablet FH/SH: Jude and his family Live in [place]. His mother is a nurse at [employer]. His height is 1.495 m (4' 10.86) and weight is 41.2 kg (90 lb 13.3 oz). His blood pressure is 106/63 and his pulse is 74. His respiration is 20 and oxygen saturation is 98%. His body mass index is 18.43 kg/(m^2). His body surface area is 1.31 meters squared. Growth percentiles are 19% for weight and 11% for height. In general, he is a very well-appearing young man with no central or peripheral cyanosis. Head and neck examination is unremarkable. He has upper airway noise (nasal) but his lungs are clear to auscultation bilaterally. He has a well-healed midline sternotomy scar with a normal S1 and asingle S2. He has a grade 2-3 systolic ejection murmur at the left upper sternal border, and no rubs, gallops or diastolic murmurs. Abdominal examination is benign with no hepatosplenomegaly or masses.Femoral pulses are normal and extremities are warm and well perfused with no edema or clubbing and good capillary refill. A 12-lead ECG was obtained today which revealed normal sinus rhythm at a rate of 77 beats per minute, intervals are within normal limits. There is right axis deviation and right ventricular hypertrophy. Overall this is unchanged from prior ECG's. An echocardiogram was performed today revealed good function of his single ventricle with mild AV valve regurgitation. DP:dT was 1212. There was normal low velocity flow in the Fontan and no fenestration was seen. No pericardial effusion was noted. Overall there was not a significant change from prior echocardiograms. Labs: done 07/30/13 in [place] Cr 0.5 alb 4.7 bili 1.4 AST 48 ALT 25 WBC 4.9 HGB 15.8 plt 230 neut70.9 ESR 12 INR 2 IMP: 13yo male with DORV, DTGA, LV hypoplasia s/p fenestrated Fontan Fenestration occluded with [facility] device 2006 Heterotaxy with malrotation Bleeding disorder Colitis ADHD Resolving Pneumonia Snoring Recommendations: Continue current meds Gradually increase activity Use nebs/inhaler prn F/U with pulm if persistent symptoms ENT eval for snoring/upper airway No exercise restrictions - rest when fatigued Regular dental cleanings- with SBE prophylaxis RTC 6 months or prn new concerns Sincerely, Cordell Juarez M.D. Golf Technician of Pediatrics Division of Pediatric Cardiology [facility] GER TRANSIT documented in this encounter Nursing Notes 08/12/2013 2:45 PM CST >> Kim Summers MA Wed Aug 12, 2013 2:59 PM Informant- Jude is accomanplied by mother Reason for Visit- Follow up dizziness and SOB Vitals signs- BP 106/63 Pulse 74 Resp 20 Ht 1.495 m (4' 10.86) Wt 41.2 kg (90 lb 13.3 oz) BMI 18.43 kg/m2 SpO2 98% Face to Face time: 5 minutes Kim Summers MA Student documented in this encounter Plan of Treatment Upcoming Encounters Date Type Specialty Care Team Description 07/27/2022 Ancillary Procedure Cardiology Cordell Juarez MD [facility] [address] [address] (Wo rk) 07/27/2022 Office Visit Cardiology Larry, Cordell skelton MD [address] [place] [address] (Wo rk) documented as of this encounter Procedures Procedure Name Priority Date/Time Associated Diagnosis Comme [facility] ELECTROCARDIOGRAM REPORT, Routine 08/13/2013 HYPOPLASTI C LEFT HEART SUBSEQUENT - ED ONLY SYND documented in this encounter Results ELECTROCARDIOGRAM REPORT (08/13/2013) Narrative This result has an attachment that is no t available. 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
--- OUTSIDE RECORDS SUMMARY | 2022-04-10 10:00 | XMS_ITS | Encounter Summary ---
:2000 Author Organization [place] Address [address] [facility] [place] [address] Care Team Providers Name Role Phone Unavailable Primary Care Provider Unavailable Reason for Visit Reason Onset Date Comments Fever 08/04/2014 Encounter Details Date Type Department Care Team Description 08/04/2014 Telephone [facility] Explorer Kathy Wells, Fever Pediatric Specialty Clinic [place] [id number] [address] [facility] [place] [address] [phone] Social History Tobacco Use Types Packs/Day Years Used Date Smoking Tobacco: Never Comments: none at home Alcohol Use Standard Drinks/Week Comments Not Asked 0 (1 standard drink = 0.6 oz pure alcoho l) Sex Assigned at Date Recorded Male 03/09/2019 1:21 PM CDT documented as of this encounter Miscellaneous Notes Telephone Encounter - Roland Wells MD - 08/04/2014 11:18 PM CST Mom called regarding fever to 103.5. Gave 1 g acetaminophen. Temp > 102 1 hour after. Is curled up in a ball, c/o headache and nasal congestion x 1 day. Denies chest pain, SOB, dizziness or palpitations. No sick contacts. IZs UTD, including influenza. Mom concerned about influenza. Is bringing him in for evaluation. Discussed with Drs. Ayala and Sophia regarding ED admission and possible observation admission. Roland Wells MD, A Fellow, Pediatric Cardiology [facility] documented in this encounter Plan of Treatment Upcoming Encounters Date Type Specialty Care Team Description 07/27/2022 Ancillary Procedure Cardiology Cordell Juarez MD [address] [facility] [place] [address] (Wo rk) 07/27/2022 Office Visit Cardiology Cordell Juarez MD [address] [facility] [address] [place] [address] (Wo rk) documented as of this encounter Visit Diagnoses Not on filedocumented in this encounter
--- OUTSIDE RECORDS SUMMARY | 2022-04-10 10:00 | XMS_ITS | Encounter Summary ---
:2000 Author Organization [place] Address [facility]0 [facility] [place] [address] Care Team Providers Name Role Phone Unavailable Primary Care Provider Unavailable Reason for Visit (Routine) - Closed Specialty Diagnoses / Procedures Referred By Contact Refer red To Contact Cardiology Diagnoses [address] Zz Rh Echocardiography Procedures [facility]ATR[facility] CONGENITAL [address] [place], [place] [address] Phone: Referral ID Status Reason Start Date Expiration Date Visits Requ ested Visits Authorized [id number] Closed 03/08/2015 03/07/2016 1 1 Encounter Details Date Type Department Care Team Description 03/09/2015 Hospital Encounter [facility] Cordell Ng, Hypoplastic left Cardiopulmonary MD heart syndrome [address] [facility] [address] [place], [place] [phone] [place], [place] [phone] Social History Tobacco Use Types Packs/Day Years [...] Saturday, Fontan procedure Saturday, Saturday warfarin (COUMADIN) 2 MG Take one tablet 90 tablet 0 201403/10/2015 tabletIndications: S/P every Saturday, Fontan procedure Saturday, Saturday, Saturday warfarin (COUMADIN) 4 MG Take one tablet 90 tablet 0 201401/20/2016 tabletIndications: on Saturday, Hypoplastic left heart , syndrome Saturday, and Saturday warfarin (COUMADIN) 4 MG Take one tablet 90 tablet 0 201403/10/2015 tabletIndications: on Saturday, Hypoplastic left heart and syndrome Saturday documented as of this encounter Plan of Treatment Upcoming Encounters Date Type Specialty Care Team Description 07/27/2022 Ancillary Procedure Cardiology Cordell Juarez MD [address] [place], [place] [phone] (Wo rk) 07/27/2022 Office Visit Cardiology Cordell Juarez MD [address] [place] [address] (Wo rk) documented as of this encounter Procedures Procedure Name Priority Date/Time Associated Diagnosis Comme nts ECHO PEDIATRIC Routine 03/09/2015 2:48 PM Hypoplastic left Res ults for this CONGENITAL CDT heart syndrome procedure are in the results section. documented in this encounter Results Echo pediatric congenital (03/09/2015 2:48 PM CDT) Anatomical Region Laterality Modality Echocardiography Specimen (Source) Anatomical Location Collection Method / Collectio n Time Received Time / Laterality Volume Narrative 03/11/2015 8:36 AM CDT PEDIATRIC ECHOCARDIOGRAM [facility] ? Age: 801/31/2000 ??Wt: 112 lb ??Ht: 62.5 c m ?BSA:1.5 m2 ?BP: ?? Xcelera ?? Kitchen Helper: raquel INDICATION: Double outlet right ventricl e, transposition, left ventricular hypoplasia, Fontan A cardiac ultrasound study based on an e xam which included: M-Mode ??2-D ??Doppler ??Color Flow CONCLUSION: ?? Double outlet right ventricle with trans position and left ventricular hypoplasia after Fontan procedure. ??Ove rall ventricular function is good. ?? There is 1+ tricuspid regurgitation. ?? M-Mode Report Left Atrium ? mm Aortic Root ?mm LV end Diastolic ??28 ?? mm LV end Systolic ?? 22 ??mm Shortening Fraction ? 21.1% Intravent Septum ??6.9 ??mm LV Post Wall ?? 5.5 mm ?? 1. No ECG is recorded. 2. Normal left atrial dimension. 3. Normal left ventricular dimension and contractility. 2-Dimensional Report Recordings are performed from parasterna l, apical, subcostal and suprasternal notch windows. There is a d ouble outlet right ventricle with tansposed great arteries. ??Aortic, mitr al, and tricuspid valve motions are normal. The systemic venous return was d emonstrated and is normal. A Fontan baffle is visualized. Left atrial size is normal. Right atrial size is normal. Right ventricular size and co ntractility is normal. The left ventricle is somewhat smaller than the r ight. ??There is a large ventricular septal defect. There is no e vidence of pericardial effusion. ?? Not Evaluated Coronary sinus, arch situs and coronary artery origins. ?? Doppler Report Color flow and spectral Doppler are util ized. There is no mitral valve regurgitation. There is 1+ tricuspid reg urgitation. ??Normal flows are recorded in the right ventricular outflo w tract, ascending aorta (0.8 m/sec) and in the descending thoracic (1 .0 m/sec) and abdominal aorta. There is no evidence of a xnyr-kt-jxpec shunt at atrial or great artery levels. There is a edkt-je-zeifu shunt a cross the large ventricular septal defect. ?? Not Evaluated Pulmonary venous return Artemio Silva MD-Pager [phone] Cordell Juarez MD CV PEDS ECHO ORDERABLES documented in this encounter 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
--- OUTSIDE RECORDS SUMMARY | 2022-04-10 10:00 | XMS_ITS | Encounter Summary ---
:2000 Author Organization [place] Address [facility] [place] [address] Care Team Providers Name Role Phone Unavailable Primary Care Provider Unavailable Reason for Visit (Routine) - Closed Specialty Diagnoses / Procedures Referred By Contact Refer red To Contact Cardiology Diagnoses Pending sale to [facility] [phone] [facility] order Larry to supervise José Rojo Electrocard Procedures CARDIAC STRESS TEST [address] [place] [phone] Phone: Fax: Referral ID Status Reason Start Date Expiration Date Visits Requ ested Visits Authorized [id number] Closed 05/20/2014 05/20/2015 1 1 Encounter Details Date Type Department Care Team Description 05/28/2014 Hospital Encounter [facility] Cordell Juarez, Atypical chest pain; Hospital Peds Single ventricle, heterotaxia syndrome Electrocardiology [address] [place] [phone] Social History Tobacco Use Types Packs/Day [...] Procedure Cardiology Cordell Juarez MD [address] [facility] [address] [place] [address] (Wo rk) 07/27/2022 Office Visit Cardiology [facility]ell Juarez [facility] [address] [facility] [address] [place] [address] (Wo rk) documented as of this encounter Procedures Procedure Name Priority Date/Time Associated Diagnosis Comme nts DESATURATION TEST - HIM 05/28/2014 12:00 AM SCAN FOAM RUBBER MOLDER documented in this encounter Results DESATURATION TEST - HIM SCAN (05/28/2014 12:00 AM FOAM RUBBER MOLDER) Specimen (Source) Anatomical Location Collection Method / Collectio n Time Received Time / Laterality Volume 05/28/2014 Narrative This result has an attachment that is no t available. Provider Scan PFT ORDERABLES documented in this encounter Visit Diagnoses Diagnosis Atypical chest pain Other chest pain Single ventricle, heterotaxia syndrome Other specified congenital anomalies documented in this encounter
--- OUTSIDE RECORDS SUMMARY | 2022-04-10 10:00 | XMS_ITS | Encounter Summary ---
:2000 Author Organization [facility] Address [address] [place] [address]. [place] [address] Care Team Providers Name Role Phone Unavailable Primary Care Provider Unavailable Reason for Visit Reason Comments RECHECK pt here for a follow up on h ypoplastic left heart Encounter Details Date Type Department Care Team Description 03/09/2015 Office Visit [facility] Cordell Juarez, Hypo plastic left heart syndrome (Primary Dx); Pediatric Specialty MD S/P Fontan procedure; Clinic [address] HYPOPLASTIC LEFT HEART SYND [address] [place] [id number] [phone] Social History Tobacco Use Types Packs/Day Years Used Date Smoking Tobacco: Never Comments: none at home Alcohol Use Standard Drinks/Week Comments Not Asked 0 (1 standard drink = 0.6 oz pure alcoho l) Sex Assigned at Date Recorded Male 03/09/2019 1:21 PM CDT documented as of this encounter Last Filed Vital Signs Vital Sign Reading Time Taken Comments Blood Pressure 114/64 03/09/2015 2:12 PM CDT RA Pulse 83 03/09/2015 2:12 PM CDT Temperature - - Respiratory Rate 28 03/09/2015 2:12 PM CDT Oxygen Saturation 96% 03/09/2015 2:12 PM CDT Inhaled Oxygen Concentration - - Weight 51.1 kg (112 lb 11.2 oz) 03/09/2015 2:12 PM CDT Height 159.3 cm (5' 2.7) 03/09/2015 2:12 PM CDT Body Mass Index 20.16 03/09/2015 2:12 PM CDT Body Mass Index Percentile 53.78 % 03/09/2015 2:12 PM CD T Growth Chart: [facility] (Boys, 2-20 Years) documented in this encounter Patient Instructions Patient InstructionsSuKavitha jasmine MD - 03/09/2015 4:00 PM CDT You were seen today in the Pediatric Cardiology Clinic at [facility] Cardiology Providers you saw during your visit: Cordell Juarez MD and Kavitha Mann MD Diagnosis: DORV with LV hypoplasia and d-TGA, PS; heterotaxy S/P Fontan with fensestration closed with Amplatzer device Results: Good function and mild AV valve regurgitation on echo (No change) . Normal sinus rhythm at 63 bpm on EKG. Borderline high BP 114/64 today on 10 mg lisinopril. Recommendations: Labs drawn including INR, CMP, CBC with diff, AT3, and IgG No change in meds Continue coumadin Goal INR 2-2.5 BP checks with clinic visits. RTC 6 months and will have Holter placed at that time SBE prophylaxis: Yes__X_ No____ Exercise restrictions: Yes_X__ No__ If yes list restrictions: Must have access and be encouraged to drink fluids in warm weather and while exercising. Must rest if short of breath, fatigued, or heart racing, may then resume play. Avoid activity at high altitude and activities involving significant exertion. Avoid contact sports. Work restrictions: Yes___ No_X_ If yes list restrictions: Follow-up: 6 months with Holter Thank you for your visit today. If you have questions about today's visit, please call our clinic [phone] For after hours urgent needs call [phone] and ask to speak to the Pediatric Cardiology Physician navigation teacher. For emergencies call [phone]. documented in this encounter Progress Notes LarryCordell MD - 03/09/2015 1:15 PM CDT Pediatric Cardiology Visit Patient: Jude Bills Date of : 2000 Age: 13 y 6 m Date of Visit: Mar 09, 2015 PCP: Deng Wallace MD Dear Deng Mata MD: I had the pleasure of seeing your patient, Jude Bills, in the Pediatric Cardiology Clinic at [facility] in [place] on Mar 09, 2015. 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 He underwent a central shunt, followed by a Fortino procedure and completion of a Fontan procedure at the [facility] in healthcare corporate account director. [facility] Jude was last seen in clinic in July 2013 and is here with his mother, father, an d brother for routine follow-up. Since his last visit, Jude was hospitalized on 08/05/14 for fever and tachycardia. He had a chest x-ray that was unremarkable for any focal infiltrates or changes in cardiac size. An ECG was also unchanged from previously. He was admitted and monitored overnight on telemetry and noted to be in sinus rhythm throughout his hospital stay. He was diagnosed with likely viral illness due to his sore throat and conjunctivitis, and his rapid Strep and Influenza testing were negative. Due to a subtherapeutic INR, his Warfarin regimen was changed from 4 mg twice weekly with 2 mg 5 days weekly to 4 mg 3 days aweek and 2 mg 4 days a week. In October 2014, he was hit in the right eye by a bat during baseball and developed a hyphema, which was treated with eyedrops. He hit his head while playing football on concrete a few weeks ago, but did not lose consciousness and had a head CT done, which was normal. He had rhinorrhea and a cough earlier this month, which has resolved. He had an episode of sharp pain in his upper chest approximately 1.5 weeks ago, which began when he was standing in math class. The pain continued for 3 hours, and during this time period, he went to physical education, where he ran a coupleof laps and did some push-ups. He also went home on the school bus, and when he reached home, the tabitha n had resolved. He notes that the pain was slightly worse with running, but he did not stop because of the pain. He denies any other episodes of chest pain. He has had a good activity level and denies any irregular heart beat, syncope, edema, or fevers. He denies diarrhea or an upset stomach. He does have noisy breathing and snoring that is not new. His appetite is good. 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 Jude is currently on Coumadin, but often fails to take it. Jude is in the 9th grade and is doing well. He has an IEP. He participates in baseball and basketball. He continues on his coumadin, and gets INR's checked in [place] with a goal range of 2-2.5. Current Outpatient Prescriptions Medication ??? lisinopril (PRINIVIL,ZESTRIL) 10 MG tablet ??? warfarin (COUMADIN) 4 MG tablet ??? warfarin (COUMADIN) 2 MG tablet ??? dexmethylphenidate (FOCALIN XR) 15 MG 24 hr capsule ??? Loratadine (CLARITIN PO) ??? omeprazole (PRILOSEC) 20 MG capsule No current facility-administered medications for this visit. FH/SH: Jude and his family live in [place]. His mother is a nurse at [employer]. His height is 1.593 m (5' 2.7) and weight is 51.12 kg (112 lb 11.2 oz). His blood pressure is 114/64 and his pulse is 83. His respiration is 28 and oxygen saturation is 96%. His body mass index is 20.14 kg/(m^2). His body surface area is 1.50 meters squared. Growth percentiles are 27th% for weight and 8% for height. In general, he is a [...] Overall, this is unchanged from prior ECG's. An echocardiogram was performed today revealed good function of his single ventricle with mild AV valve regurgitation. DP:dT was 909. There was normal low velocity flow in the Fontan and no fenestration was seen. No pericardial effusion was noted. Overall there was not a significant change from prior e chocardiograms. Final report: Double outlet right ventricle with transposition and left ventricular hypoplasia afterFontan procedure. Overall ventricular function is good. There is 1+ tricuspid regurgitation. Labs (03/09/15): CMP- lytes normal, BUN 17, creatine 0.67, albumin 4.7 Hgb 16.8, WBC 5.1, Plt 230 INR 1.62 IgG 1210 Antithrombin III 109 In summary, Jude is a 15 year old male with double outlet right ventricle, d- transposition of the great arteries, and LV hypoplasia s/p fenestrated Fontan, which was occluded with an Amplatzer device in 2006, heterotaxy with malrotation, bleeding disorder and colitis that is exacerbated by aspirin, ADHD, and snoring. He has been doing well clinically with good exercise tolerance and no respiratory distress, diarrhea, or edema. His episode of chest pain was unlikely to be cardiac in etiology due to his ability to proceed with physical activities, including running and push-ups, after the pain had started, and resolution of the pain without any intervention. He did not have any palpitations, dizziness, lightheadedness, or syncope associated with the pain. We ordered routine laboratory work to evaluate him for protein losing enteropathy, as listed above, due to his history of Fontan procedure. The lab work was all within normal limits, with the exception of the INR being subtherapeutic, so we contacted his mother and advised her to increase his Coumadin regimen so that he is now taking 4 mg four times a week and 2 mg 3 times a week. He should also have a repeat INR in 2 weeks and then monthly when in goal range. Thank you for the opportunity to participate in Jude's care. I recommend that he continue regular dental cleanings with SBE prophylaxis. I asked to see Jude back in 6 months with a repeat echocardiogram and 24 hour Holter. He will continue his current medications with the above noted increase in Coumadin dose. He must have access to and be encouraged to drink fluids in warm weather and while exercising. He should avoid activity at high altitudes. He must rest if he becomes short of breath, fatigued,or feels like his heart is racing. After this resolves, he may resume play. He should avoid contact sports while on coumadin and highly competitive sports given his single ventricle. THis was discussedwith Jude and his family at length. Thank you for the opportunity to participate in Jude's care. Please do not hesitate to call with questions or concerns. Sincerely, Kavitha Mann M.D. Pediatric Jacquard Card Cutter I have reviewed the clinical history, examined the patient, reviewed the relevant diagnostic studies, and discussed our findings and recommendations with Jude and his parents. I have reviewed and edited this note. Cordell Juarez M.D. Applications Support Specialist of Pediatrics Division of Pediatric Cardiology [facility] documented in this encounter Nursing Notes Melissa Kathleen CNA - 03/09/2015 2:14 PM CDT Informant- Jude is accompanied by both parents Reason for Visit- Pt here for a follow up on hypoplastic left heart Vitals signs- BP 114/64 mmHg Pulse 83 Resp 28 Ht 1.593 m (5' 2.7) Wt 51.12 kg (112 lb 11.2 oz) BMI 20.14 kg/m2 SpO2 96% Face to Face time: 5 min Melissa Kathleen MA documented in this encounter Plan of Treatment Upcoming Encounters Date Type Specialty Care Team Description 07/27/2022 Ancillary Procedure Cardiology Cordell Juarez MD [address] [id number] (Wo rk) 07/27/2022 Office Visit Cardiology Cordell Juarez MD [address] [address] (Wo rk) documented as of this encounter Procedures Procedure Name Priority Date/Time Associated Comments Diagnosis [facility] ELECTROCARDIOGRAM Routine 03/10/2015 Hypoplastic left REPORT, SUBSEQUENT - ED heart syndrome ONLY INR Routine 03/09/2015 4:20 Hypoplastic left Results for this PM CDT heart syndrome procedure are in the results section. documented in this encounter Results ELECTROCARDIOGRAM REPORT (03/10/2015) Narrative This result has an attachment that is no t available. Cordell Juarez MD PROCEDURES IgG (03/09/2015 4:20 PM CDT) athologist Signature IGG 1,210 695 - 1,[address] [facility] mg/dL [facility] Specimen Anatomical Collection Method Collection Time Receive d Time (Source) Location / / Volume Laterality Blood specimen 03/09/2015 4:20 PM 015 4:35 (specimen) CDT PM CDT Kavitha Mann MD LAB - BLOOD ORDERABLES Performing Organization Address City/State/ZIP Code Phon e Number [facility] [address] [place] [address] [facility] (ABNORMAL) CBC with platelets differential (03/09/2015 4:20 PM CDT) [facility] gist Method Time Signature WBC 5.1 4.0 - [place] 11.0 [place] 10e9/L [facility] RBC Count 5.79 (H) 3.7 - 5.3 [facility] 10e12/L [facility] Hemoglobin 16.8 (H) 11.7 - [facility] 15.7 g/dL [facility] Hematocrit 48.4 (H) 35.0 - [facility] 47.0 % [facility] MCV 84 77 - 100 [facility] fl [facility] MCH 29.0 26.5 - [facility] 33.0 pg [facility] MCHC 34.7 31.5 - [facility] 36.5 g/dL [facility] RDW 14.0 10.0 - [facility] 15.0 % [facility] Platelet Count 230 150 - 450 [place] [id number] [place] [address] Diff Method Automated [facility] Method [facility] % Neutrophils 60.7 % [facility] % Lymphocytes 26.8 % [facility] % Monocytes 10.1 % [facility] % Eosinophils 1.8 % [facility] % Basophils 0.4 % [facility] % Immature 0.2 % [facility] Granulocytes [facility] Absolute 3.1 1.3 - 7.0 [facility] Neutrophil 10e9[facility] Absolute 1.4 1.0 - 5.8 [facility] Lymphocytes [address] [place] [address] Absolute 0.5 0.0 - 1.3 [facility] Monocytes [address] [place] [address] Absolute 0.1 0.0 - 0.7 [facility] Eosinophils [address] [place] [address] Absolute 0.0 0.0 - 0.2 [facility] Basophils [address] [place] [address] Abs Immature 0.0 0 - 0.4 [facility] Granulocytes [address] [place] [address] Specimen Anatomical Collection Method Collection Time Receive d Time (Source) Location / / Volume Laterality Blood specimen 03/09/2015 4:20 PM 015 4:35 (specimen) CDT PM CDT Kavitha Mann MD LAB - BLOOD ORDERABLES Performing Organization Address City/State/ZIP Code Phon e Number [facility] [address] [place], [place] [address] [facility] [address] [place], [place] [address] [place] [address] Antithrombin III (03/09/2015 4:20 PM CDT) Analysis Performed At Patho logist Time Signature Antithrombin III 109 85 - 135 % [facility] Specimen Anatomical Collection Method Collection Time Receive d Time (Source) Location / / Volume Laterality Blood specimen 03/09/2015 4:20 PM 015 4:35 (specimen) CDT PM CDT Kavitha Mann MD LAB - BLOOD ORDERABLES Performing Organization Address City/State/ZIP Code Phon e Number [facility] [address] [place] [address] [facility] (ABNORMAL) INR (03/09/2015 4:20 PM CDT) P athologist Signature INR 1.62 (H) 0.86 - 1.14 [facility] Specimen Anatomical Collection Method Collection Time Receive d Time (Source) Location / / Volume Laterality Blood specimen 03/09/2015 4:20 PM 015 4:40 (specimen) CDT PM CDT Kavitha Mann MD LAB - BLOOD ORDERABLES Performing Organization Address City/State/[facility] Phon e Number [facility] [address] [place] [address] [phone] Comprehensive metabolic panel (BMP + Alb, Alk Phos, ALT, AST, Total. Bili, TP) (03/09/2015 4:20 PM CDT) Patholo gist Method Time Signature Sodium 139 133 - 143 [facility] mmol/L [facility] Potassium 4.2 3.4 - 5.3 [facility] mmol/L [facility] Chloride 105 98 - 110 [facility] mmol/L [facility] Carbon Dioxide 27 20 - 32 [facility] mmol/L [facility] Anion Gap 7 3 - 14 [facility] mmol/L [facility] Glucose 86 70 - 99 [facility] mg/dL [facility] Urea Nitrogen 17 7 - 21 [facility] mg/dL [facility] Creatinine 0.67 0.50 - [facility] 1.00 [facility] mg/dL [facility] GFR Estimate GFR not calculated, patient <16 years old. mL/min/1. [facility] Non GFR Calc 7m2 [facility] GFR Estimate If GFR not calculated, patient <16 years old. mL/min/1. [facility] Black GFR Calc 7m2 [facility] Calcium 9.8 9.1 - [facility] 10.3 [facility] mg/dL [facility] Bilirubin Total 1.2 0.2 - 1.3 [facility] mg/dL [facility] Albumin 4.7 3.4 - 5.0 [facility] g/dL [facility] Protein Total 8.0 6.8 - 8.8 [facility] g/dL [facility] Alkaline 372 130 - 530 [facility] Phosphatase U/L [facility] ALT 25 0 - 50 [facility] U/L [facility] AST 25 0 - 35 [facility] U/L [facility] Specimen Anatomical Collection Method Collection Time Receive d Time (Source) Location / / Volume Laterality Blood specimen 03/09/2015 4:20 PM 015 4:35 (specimen) CDT PM CDT Kavitha Mann MD LAB - BLOOD ORDERABLES Performing Organization Address City/State/ZIP Code Phon e Number [place] [address] [place] [address] [facility] [address] [phone] Echo pediatric congenital (03/09/2015 2:48 PM CDT) Anatomical Region Laterality Modality Echocardiography Specimen (Source) Anatomical Location Collection Method / Collectio n Time Received Time / Laterality Volume Narrative 03/11/2015 8:36 AM CDT PEDIATRIC ECHOCARDIOGRAM [facility] ? Age: 801/31/2000 ??Wt: 112 lb ??Ht: 62.5 c m ?BSA:1.5 m2 ?BP: ?? [employer] ?? Weigh And Charge Worker: raquel INDICATION: Double outlet right ventricl e, [...] aorta. There is no evidence of a [id number] shunt at atrial or great artery levels. There is a wyec-rj-[id number] shunt a cross the large ventricular septal defect. ?? 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
--- OUTSIDE RECORDS SUMMARY | 2022-04-10 10:00 | XMS_ITS | Encounter Summary ---
:2000 Author Organization [place] Address [facility] [place] [address] Care Team Providers Name Role Phone Unavailable Primary Care Provider Unavailable Encounter Details Date Type Department Care Team Description 08/12/2013 Results Only [facility] Rudy Juarez MD Hospital Results [address] [place], [place] [id number] (Wo rk) Social History Tobacco Use Types [...] 07/27/2022 Ancillary Procedure Cardiology Cordell Juarez MD [address] [place] [address] [phone] (Wo rk) 07/27/2022 Office Visit Cardiology Cordell Juarez MD [address] [place] [address] [phone] (Wo rk) documented as of this encounter Procedures Procedure Name Priority Date/Time Associated Diagnosis Comme nts ECHO PEDIATRIC 08/12/2013 3:26 PM Results for this COMPLETE PSYCHOLOGICAL SCIENCE PROFESSOR procedure are i n the results section. documented in this encounter Results Echo pediatric complete (08/12/2013 3:26 PM PSYCHOLOGICAL SCIENCE PROFESSOR) Anatomical Region Laterality Modality Echocardiography Specimen (Source) Anatomical Collection Method Collection Time Re ceived Time Location / / Volume Laterality 08/12/2013 3:26 PM PSYCHOLOGICAL SCIENCE PROFESSOR Narrative 08/13/2013 1:08 PM PSYCHOLOGICAL SCIENCE PROFESSOR PEDIATRIC ECHOCARDIOGRAM [facility] ? ?Echocardiogram Lab ? Age: ??1 ? Wt: ??41.2 kg ?Ht: ??149.5 cm ??BSA: ?? 1331 m2 ? BP: ??106/63 ? [employer] ? Silvering Applicator: ??kbINDICATION: ??DORV A cardiac ultrasound study based on an e xam which included: M-Mode ? 2-D ?Doppler ? Color FlowCONCLUSION: ??Double outlet ri ght ventricle with d-malposition of the great arteries, LV hypoplasia and heterotaxy syndrome after Fortino and Fontan anastomo sis. The branch pulmonary arteries are not well visualized on this study. The ventricular systolic function is normal. No residual fenestration is identified in the Fontan pathway. There is prolapse of the tricuspid valve with 1-2+ tricuspid regurgitation. No pericar dial effusion. M-Mode Report 1. ECG shows normal sinus rhythm at a ra te of 62 bpm. 2-Dimensional Report Recordings are performed from parasterna l, apical, subcostal and suprasternal notch windows. Technically challenging study due to poor acoustic windows. Patient with known his tory of double outlet right ventricle with d-malposition of the grea t arteries, hypoplastic of the left ventricle, after Fortino and Font an procedure, heterotaxy syndrome. ??Aortic and mitral valve sawyer ons are normal. There is prolapse of the anterior leaflet of the tricuspid valve. The inferior and superior vena cava both have unobstr ucted flow. The Fortino anastomosis and the Fontan channel are n ot well visualized on this study. Large inter atrial communication. No residual fenestration is identified in the Fontan pathway. Left a trial size is normal. Right atrial size is normal. Good right ventri cular systolic function. There is hypoplasia of the left ventricl e. Large perimembranous ventricular septal defect. There is no e vidence of pericardial effusion. The visualized segment of the aorta appear patent. ?? Not Evaluated Coronary sinus, aortic arch situs and co ronary arteries. Doppler Report Color flow and spectral Doppler are util ized. 1-2+ tricuspid regurgitation with Dp:Dt of 1212 mmHg/se c. No mitral regurgitation. Normal flows are recorded in the right a nd left ventricular outflow tracts to the ascending aorta. Normal fl ows are recorded in the proximal descending thoracic aorta (1 m/ sec) and in the abdominal aorta. Large unobstructed atrial septal defect with left to right shunt. Large perimembranous ventricular septal defect with unobstructed outflow from the left ventr icle to the aorta. ?? Artemio Silva MD-Pager [phone] Gayathri Ayala MD-Pager [phone] Jorge Link MD-Pager [phone] or Cordell Juarez MD-Pager [phone] Jayson Bailey MD-Pager [phone] Vilma Rucker MD-Pager [phone] Constantine Herrera MD-Pager # [phone] Temo Mccord MD - Pager ?? Procedure Note Constantine Herrera MD - 08/13/2013Forma tting of this note might be different from the original. PEDIATRIC ECHOCARDIOGRAM [facility] E chocardiogram Lab Age: [birth year] Wt: 41.2 kg Ht: 149.5 cm BS A: 1331 m2 BP: 106/63 [employer] Silvering Applicator: kbINDICATION: DORV A cardiac ultrasound study based on an e xam which included: M-Mode 2-D Doppler Color FlowCONCLUSION: Double outlet righ t ventricle with d-malposition of the great arteries, LV hypoplasia and heterotaxy syndrome after Fortino and Fontan anastomo sis. The branch pulmonary arteries are not well visualized on this study. The ventricular systolic function is normal. No residual fenestration is identified in the Fontan pathway. There is prolapse of the tricuspid valve with 1-2+ tricuspid regurgitation. No pericar dial effusion. M-Mode Report 1. ECG shows normal sinus rhythm at a ra te of 62 bpm. 2-Dimensional Report Recordings are performed from parasterna l, apical, subcostal and suprasternal notch windows. Technically challenging study due to poor acoustic windows. Patient with known his tory of double outlet right ventricle with d-malposition of the grea t arteries, hypoplastic of the left ventricle, after Fortino and Font an procedure, heterotaxy syndrome. Aortic and mitral valve motion s are normal. There is prolapse of the anterior leaflet of the tricuspid valve. The inferior and superior vena cava both have unobstr ucted flow. The Fortino anastomosis and the Fontan channel are n ot well visualized on this study. Large inter atrial communication. No residual fenestration is identified in the Fontan pathway. Left a trial size is normal. Right atrial size is normal. Good right ventri cular systolic function. There is hypoplasia of the left ventricl e. Large perimembranous ventricular septal defect. There is no e vidence of pericardial effusion. The visualized segment of the aorta appear patent. Not Evaluated Coronary sinus, aortic arch situs and co ronary arteries. Doppler Report Color flow and spectral Doppler are util ized. 1-2+ tricuspid regurgitation with Dp:Dt of 1212 mmHg/se c. No mitral regurgitation. Normal flows are recorded in the right a nd left ventricular outflow tracts to the ascending aorta. Normal fl ows are recorded in the proximal descending thoracic aorta (1 m/ sec) and in the abdominal aorta. Large unobstructed atrial septal defect with left to right shunt. Large perimembranous ventricular septal defect with unobstructed outflow from the left ventr icle to the aorta. Artemio Silva MD-Pager [phone] Gayathri Ayala MD-Pager [phone] Jorge Link MD-Pager [phone] or Cordell Juarez MD-Pager [phone] Jayson Bailey MD-Pager [phone] Vilma Rucker MD-Pager [phone] Constantine Herrera MD-Pager # [phone] Temo Mccord MD - Pager Cordell Juarez MD CV PEDS ECHO ORDERABLES documented in this encounter Visit Diagnoses Not on filedocumented in this encounter
--- OUTSIDE RECORDS SUMMARY | 2022-04-10 10:00 | XMS_ITS | Encounter Summary ---
:2000 Author Organization [place] Address [address] [place] [address] Care Team Providers Name Role Phone Unavailable Primary Care Provider Unavailable Encounter Details Date Type Department Care Team Description 09/16/2014 Telephone [facility] Explorer Constantine Pandey rd, MD Pediatric Specialty Clinic [facility] [address] [address] [address] [facility] [address] [address] [facility] [place], [place] [address] [phone] Social History Tobacco Use Types Packs/Day Years Used Date Smoking Tobacco: Never Comments: none at home Alcohol Use Standard Drinks/Week Comments Not Asked 0 (1 standard drink = 0.6 oz pure alcoho l) Sex Assigned at Date Recorded Male 03/09/2019 1:21 PM CDT documented as of this encounter Miscellaneous Notes Telephone Encounter - Constantine Herrera MD - 09/16/2014 5:51 PM CDT Received a telephone from Jude's mother noting an elevated heart rate. He was at baseball practice and was made to run up and down the field until he could go no further. He then went to a friend's house and later called home complaining of fast heart rates. Mother made him come home and notes that his heart rates at home are 105-110 and BP 95/63, but that he otherwise seemed well. She does not thinkhe is well hydrated, so we discussed pushing oral hydration and watching him at home. She agreed to come here to the ER if he had any concerning symptoms or his heart rate did not improve with hydration. documented in this encounter Plan of Treatment Upcoming Encounters Date Type Specialty Care Team Description 07/27/2022 Ancillary Procedure Cardiology Cordell Juarez MD [address] [place], [place] [id number] (Wo rk) 07/27/2022 Office Visit Cardiology Cordell Juarez MD [address] [place] [address] (Wo rk) documented as of this encounter Visit Diagnoses Not on filedocumented in this encounter
--- OUTSIDE RECORDS SUMMARY | 2022-04-10 10:00 | XMS_ITS | Encounter Summary ---
:2000 Author Organization [place] Address [address] [place] [address]. [place] [address] Care Team Providers Name Role Phone Unavailable Primary Care Provider Unavailable Encounter Details Date Type Department Care Team Description 08/16/2015 Orders Only [facility] Cordell Juarez Tach ycardia (Primary Pediatric Specialty Dx) Clinic [address] [address] [address] [place] [id number] [phone] Social History Tobacco Use Types Packs/Day Years [...] 07/27/2022 Ancillary Procedure Cardiology Cordell Juarez MD [address] [place], [place] [id number] [place] [address] (Wo rk) 07/27/2022 Office Visit Cardiology Cordell Juarez MD [address] [place], [place] [address] [place] [address] (Wo rk) documented as of this encounter Procedures Procedure Name Priority Date/Time Associated Diagnosis Comme nts INR Routine 08/15/2015 Tachycardia Results for thi s procedure are in the resu lts section. documented in this encounter Results INR (08/15/2015) P athologist Signature PT 16.8 Seconds MISYS INR 1.4 MISYS Specimen (Source) Anatomical Location Collection Method / Collectio n Time Received Time / Laterality Volume Blood specimen 08/15/2015 (specimen) Narrative This result has an attachment that is no t available. Cordell Juarez MD LAB - BLOOD ORDERABLES Performing Organization Address City/State/ZIP Code Phon e Number MISYS documented in this encounter Visit Diagnoses Diagnosis Tachycardia - Primary Tachycardia, unspecified documented in this encounter
--- OUTSIDE RECORDS SUMMARY | 2022-04-10 10:00 | XMS_ITS | Encounter Summary ---
:2000 Author Organization [address] [place] [address] Care Team Providers Name Role Phone Unavailable Primary Care Provider Unavailable Reason for Visit Reason Onset Date Comments Refill Request 04/16/2014 Encounter Details Date Type Department Care Team Description 04/16/2014 Refill [facility] Pediatric Larry Cordell MD Refill Request Specialty Clinic [address] [place] [address] [facility] [place] [address] [phone] Social History Tobacco Use Types Packs/Day Years Used Date Smoking Tobacco: Never Comments: none at home Alcohol Use Standard Drinks/Week Comments Not Asked 0 (1 standard drink = 0.6 oz pure alcoho l) Sex Assigned at Date Recorded Male 03/09/2019 1:21 PM CDT documented as of this encounter Miscellaneous Notes Telephone Encounter - Delicia Izaguirre RN - 04/16/2014 9:26 AM CDT Jude needs a refill! Delicia Baum documented in this encounter Plan of Treatment Upcoming Encounters Date Type Specialty Care Team Description 07/27/2022 Ancillary Procedure Cardiology Cordell Juarez MD [address] [place], [place] [address] (Wo rk) 07/27/2022 Office Visit Cardiology Cordell Juarez MD [address] [place], [place] [address] (Wo rk) documented as of this encounter Visit Diagnoses Diagnosis S/P Fontan procedure Other postprocedural status documented in this encounter
--- OUTSIDE RECORDS SUMMARY | 2022-04-10 10:00 | XMS_ITS | Encounter Summary ---
:2000 Author Organization [place] Address [address] [facility] [place] [address] Care Team Providers Name Role Phone Unavailable Primary Care Provider Unavailable Encounter Details Date Type Department Care Team Description 03/09/2015 Hospital Encounter [facility] LarryCordell , Hypoplastic left [facility] heart syndrome [address] [place], [place] [address] [place], [place] [phone] Social History Tobacco Use Types Packs/Day Years [...] 07/27/2022 Ancillary Procedure Cardiology Cordell Juarez MD [address] [place] [phone] (Wo rk) 07/27/2022 Office Visit Cardiology Cordell Juarez MD [address] [place] [address] (Wo rk) documented as of this encounter Procedures Procedure Name Priority Date/Time Associated Comments Diagnosis IGG Routine 03/09/2015 4:20 PM Hypoplastic left Resul ts for this CDT heart syndrome procedure are in the results section. CBC WITH PLATELETS & Routine 03/09/2015 4:20 PM Hypoplastic le ft Results for this DIFFERENTIAL CDT heart syndrome procedure are in the results section. COMPREHENSIVE Routine 03/09/2015 4:20 PM Hypoplastic left Resu lts for this METABOLIC PANEL CDT heart syndrome procedure are in the results section. ANTITHROMBIN III Routine 03/09/2015 4:20 PM Hypoplastic left R esults for this CDT heart syndrome procedure are in the results section. documented in this encounter Results IgG (03/09/2015 4:20 PM CDT) P athologist Signature IGG 1,210 695 - 1,620 [facility] mg/dL [facility] Specimen Anatomical Collection Method Collection Time Receive d Time (Source) Location / / Volume Laterality Blood specimen 03/09/2015 4:20 PM 015 4:35 (specimen) CDT PM CDT Kavitha Mann MD LAB - BLOOD ORDERABLES Performing Organization Address City/State/ZIP Code Phon e Number [facility] [address] [place], [place] [id number] [place] [address] (ABNORMAL) CBC with platelets differential (03/09/2015 4:20 PM CDT) Patholo gist Method Time Signature WBC 5.1 4.0 - [place] 11.0 [facility] 10e9/[facility] RBC Count 5.79 (H) 3.7 - 5.3 [place] 10e12/L [facility] Hemoglobin 16.8 (H) 11.7 - [facility] 15.7 g/dL [facility] Hematocrit 48.4 (H) 35.0 - [facility] 47.0 % [facility] MCV 84 77 - 100 [facility] MCH 29.0 26.5 - [facility] 33.0 pg [facility] MCHC 34.7 31.5 - [place] 36.5 g/dL [facility] RDW 14.0 10.0 - [facility] 15.0 % [facility] Platelet Count 230 150 - 450 [place] 10e9/L [facility] Diff Method Automated [place] Method [facility] % Neutrophils 60.7 % [employer] % Lymphocytes 26.8 % [employer] % Monocytes 10.1 % [employer] % Eosinophils 1.8 % [employer] % Basophils 0.4 % [employer] % Immature 0.2 % [place] Granulocytes [facility] Absolute 3.1 1.3 - 7.0 [place] Neutrophil 10e9/L [facility] Absolute 1.4 1.0 - 5.8 [place] Lymphocytes 10e9/L [facility] Absolute 0.5 0.0 - 1.3 [place] Monocytes 10e9/L [facility] Absolute 0.1 0.0 - 0.7 [place] Eosinophils 10e9/L [facility] Absolute 0.0 0.0 - 0.2 [place] Basophils 10e9/[facility] Abs Immature 0.0 0 - 0.4 [place] Granulocytes [address] Specimen Anatomical Collection Method Collection Time Receive d Time (Source) Location / / Volume Laterality Blood specimen 03/09/2015 4:20 PM 015 4:35 (specimen) CDT PM CDT Kavitha Mann MD LAB - BLOOD ORDERABLES Performing Organization Address City/[facility]/ZIP [facility] Phon e Number [facility] [address] [address] [facility] [address] [phone] Antithrombin III (03/09/2015 4:20 PM CDT) Analysis [facility] Time Signature Antithrombin III 109 85 - 135 % [facility] Chromogenic [facility] Specimen Anatomical Collection Method Collection Time Receive d Time (Source) Location / / Volume Laterality Blood specimen 03/09/2015 4:20 PM 015 4:35 (specimen) CDT PM CDT Kavitha Mann MD LAB - BLOOD ORDERABLES Performing Organization Address City/State/ZIP Code Phon e Number [facility] [address] [place] [address] [facility] Comprehensive metabolic panel (BMP + Alb, Alk Phos, ALT, AST, Total. Bili, TP) (03/09/2015 4:20 PM CDT) Patholo gist Method Time Signature Sodium 139 133 - 143 [place] mmol/L [facility] Potassium 4.2 3.4 - 5.3 [place] mmol/[facility] Chloride 105 98 - 110 [place] mmol/L [facility] Carbon Dioxide 27 20 - 32 [place] mmol/L [facility] Anion Gap 7 3 - 14 [place] mmol/L [facility] Glucose 86 70 - 99 [place] mg/dL [facility] Urea Nitrogen 17 7 - 21 [place] mg/dL [facility] Creatinine 0.67 0.50 - [place] 1.00 [facility] mg/dL [facility] GFR Estimate GFR not calculated, patient <16 years old. mL/min/1. [place] Non GFR Calc 7m2 [facility] GFR Estimate If GFR not calculated, patient <16 years old. mL/min/1. [place] Black GFR Calc 7m2 [facility] Calcium 9.8 9.1 - [place] 10.3 [facility] mg/dL [facility] Bilirubin Total 1.2 0.2 - 1.3 [place] mg/dL [facility] Albumin 4.7 3.4 - 5.0 [place] g/dL [facility] Protein Total 8.0 6.8 - 8.8 [place] g/dL [facility] Alkaline 372 130 - 530 [place] Phosphatase U/L [facility] ALT 25 0 - 50 [place] U/L [facility] AST 25 0 - 35 [place] U/L [facility] Specimen Anatomical Collection Method Collection Time Receive d Time (Source) Location / / Volume Laterality Blood specimen 03/09/2015 4:20 PM 015 4:35 (specimen) CDT PM CDT Kavitha Mann MD LAB - BLOOD ORDERABLES Performing Organization Address City/State/ZIP Code Phon e Number [facility] [address] [place], [place] [address] [facility] [address] [place], [place] [address] [place] [address] documented in this encounter 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
--- OUTSIDE RECORDS SUMMARY | 2022-04-10 10:00 | XMS_ITS | Encounter Summary ---
:2000 Author Organization [facility] Address [address] [place] [address] Care Team Providers Name Role Phone Unavailable Primary Care Provider Unavailable Reason for Visit Reason Comments Fever Auth/Cert - Closed Specialty Diagnoses / Procedures Referred By Contact Refer red To Contact Intensive Care Diagnoses Tachycardia Tachycardia Ur Unit 3 Peds Cv Icu [address] [place] [address] Phone: Referral ID Status Reason Start Date Expiration Date Visits Requ ested Visits Authorized [id number] Closed 08/05/2014 02/01/2015 1 1 Encounter Details Date Type Department Care Team Description 08/05/2014 Emergency [facility] LarryCordell , Fever (Primary Dx); Pediatric Cardiovascular MD Tachycardia; ICU [address] S/P Fontan procedure; [facility] [id number] Hypoplastic left heart syndrome; [place], [place] [address] [place], [place] Tachycardia with 100 - 120 b eats per minute; [phone] [id number] HYPOPLASTIC LEFT HEART SYND [phone] (Wo rk) Social History Tobacco Use Types Packs/Day Years Used Date Smoking Tobacco: Never Comments: none at home Alcohol Use Standard Drinks/Week Comments Not Asked 0 (1 standard drink = 0.6 oz pure alcoho l) Sex Assigned at Date Recorded Male 03/09/2019 1:21 PM CDT documented as of this encounter Last Filed Vital Signs Vital Sign Reading Time Taken Comments Blood Pressure 106/79 08/05/2014 12:00 PM [employer]SEM[employer] RIVETER Pulse 83 08/05/2014 3:00 AM ASSEMBLY RIVETER Temperature 37 ??C (98.6 ??F) 08/05/2014 12:00 PM ASSEMBLY RIVETER Respiratory Rate 18 08/05/2014 12:00 PM ASSEMBL[employer] RIVETER Oxygen Saturation 96% 08/05/2014 12:00 PM ASSEMBLY RIVETER Inhaled Oxygen Concentration - - Weight 48.9 kg (107 lb 12.9 oz) 08/05/2014 12:17 AM ASSEMBLY RIVETER Height - - Body Mass Index - - documented in this encounter Discharge Summaries Cordell Juarez MD - 08/05/2014 4:33 PM CST Images from the original note were not included. 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 He also has heterotaxy, malrotation of intestines, hx of GI bleeding, andADHD. He was admitted with a less than one day history of fever and tachycardia Hospital Course Jude Bills was admitted on 08/05/2014. The following problems were addressed during his hospitalization: Fever and tachycardia: A chest x-ray was obtained and was negative for any focal infiltrates or cardiac changes. An EKG was also unchanged from previously. He was admitted and placed on telemetry. He was noted to be in sinus rhythm throughout his hospital stay. Due to his symptoms of conjunctivitis and sore throat, his fever and tachycardia were attributed to a likely viral process. (Rapid strep and influenza testing were negative). His heart rate trended down during his admission. He was able to drink well and had adequate urine output without IV fluids. Sub therapeutic INR: His INR was noted to be 1.4. His goal is 2.0. His Warfarin regimen was changed to 4mg on , , Saturday; and 2 mg on Sat, Sat, Saturday. He was advised to have an INR re-check two weeks after discharge. Significant Results and Procedures INR 1.46 Immunization History Immunization Status: up to date and documented Pending Results These results will be followed up by Dr. Juarez Unresulted Labs Ordered in the Past 30 Days of this Admission Date and Time Order Name Status Description 08/05/2014 0311 Methicillin Resistant Staph Aureus PCR In process 08/05/2014 0236 Blood culture, one site Preliminary 08/05/2014 0055 Beta strep group A culture Preliminary Primary Care Physician Deng Wallace MD Home clinic: [facility] Physical Exam Vital Signs with Ranges Temp: [98.5 ??F (36.9 ??C)-101.2 ??F (38.4 ??C)] 98.6 ??F (37 ??C) Pulse: [83-102] 83 Heart Rate: [73-102] 95 Resp: [17-29] 18 BP: (106-115)/(66-79) 106/79 mmHg SpO2: [94 %-100 %] 96 % I/O last 3 completed shifts: In: 880 [P.O.:880] Out: 1425 [Urine:1425] GENERAL: Active, alert, in no acute distress. SKIN: Clear. No significant rash, abnormal pigmentation or lesions HEAD: Normocephalic EYES: Sharp optic discs. Pupils equal, round, reactive, Extraocular muscles intact. Normal conjunctivae. NOSE: Normal without discharge. MOUTH/THROAT: Clear. No oral lesions. Teeth without obvious abnormalities. NECK: Supple, no masses. No thyromegaly. LYMPH NODES: No adenopathy LUNGS: Clear. No rales, rhonchi, wheezing or retractions HEART: Regular rhythm. Normal S1/S2. No murmurs. Normal pulses. ABDOMEN: Soft, non-tender, not distended, no masses or hepatosplenomegaly. Bowel sounds normal. NEUROLOGIC: No focal findings. Cranial nerves grossly intact BACK: Spine is straight, no scoliosis. Time Spent on This Encounter I, Cordlel Juarez, personally saw the patient today and spent less than or equal to 30 minutes discharging this patient. Discharge Disposition Discharged to home Condition at discharge: Stable Consultations This Hospital Stay None Discharge Orders Reason for your hospital stay Jude was hospitalized for his high heart rate. This was most likely caused by a fever due to a viralinfection Activity Your activity upon discharge: activity as tolerated Follow Up and recommended labs and tests With Cardiology as previously scheduled Check INR in two weeks Follow-up with PCP within 2 weeks Full Code Diet Follow this diet upon discharge: Regular Discharge Medications Current Discharge Medication List CONTINUE these medications which have CHANGED Details !! warfarin (COUMADIN) 4 MG tablet Take one tablet on Saturday, and Saturday Qty: 90 tablet, Refills: 0 Associated Diagnoses: Hypoplastic left heart syndrome !! warfarin (COUMADIN) 2 MG tablet Take one tablet every Saturday, Saturday, Saturday Qty: 90 tablet, Refills: 0 Associated Diagnoses: S/P Fontan procedure !! - Potential duplicate medications found. Please discuss with provider. CONTINUE these medications which have NOT CHANGED Details dexmethylphenidate (FOCALIN XR) 15 MG 24 hr capsule Take 15 mg by mouth daily Associated Diagnoses: Hypoplastic left heart syndrome omeprazole (PRILOSEC) 20 MG capsule Take 1 capsule (20 mg) by mouth daily Qty: 90 capsule, Refills: 3 Associated Diagnoses: History of gastritis lisinopril (PRINIVIL,ZESTRIL) 10 MG tablet Take 1 tablet (10 mg) by mouth daily Qty: 90 tablet, Refills: 10 Associated Diagnoses: Hypoplastic left heart syndrome Loratadine (CLARITIN PO) Take by mouth. Allergies No Known Allergies Data Results for orders placed during the hospital encounter of 08/05/14 (from the past 24 hour(s)) BETA STREP GROUP A CULTURE Result Value Ref Range Specimen Description Throat Culture Micro Culture negative < 24 hours, reincubate Micro Report Status Pending RAPID STREP GROUP A SCREEN POCT Result Value Ref Range Rapid Strep A Screen Negative neg Internal QC OK Yes INFLUENZA A/B ANTIGEN Result Value Ref Range Influenza A/B Agn Specimen Nasopharyngeal Influenza A Negative NEG Influenza B NEG Value: Negative Test results must be correlated with clinical data. If necessary, results should be confirmed by a molecular assay or viral culture. CBC WITH PLATELETS DIFFERENTIAL Result Value Ref Range WBC 13.4 (*) 4.0 - 11.0 10e9/L RBC Count 5.13 3.7 - 5.3 10e12/L Hemoglobin 14.5 11.7 - 15.7 g/dL Hematocrit 44.0 35.0 - 47.0 % MCV 86 77 - 100 fl MCH 28.3 26.5 - 33.0 pg MCHC 33.0 31.5 - 36.5 g/dL RDW 13.9 10.0 - 15.0 % Platelet Count 156 150 - 450 10e9/L Diff Method Automated Method % Neutrophils 83.6 % Lymphocytes 7.6 % Monocytes 8.2 % Eosinophils 0.2 % Basophils 0.1 % Immature Granulocytes 0.3 Absolute Neutrophil 11.2 (*) 1.3 - 7.0 10e9/L Absolute Lymphocytes 1.0 1.0 - 5.8 10e9/L Absolute Monoctyes 1.1 0.0 - 1.3 10e9/L Absolute Eosinophils 0.0 0.0 - 0.7 10e9/L Absolute Basophils 0.0 0.0 - 0.2 10e9/L Abs Immature Granulocytes 0.0 0 - 0.4 10e9/L CRP INFLAMMATION Result Value Ref Range CRP Inflammation 3.0 0.0 - 8.0 mg/L COMPREHENSIVE METABOLIC PANEL Result Value Ref Range Sodium 134 133 - 143 mmol/L Potassium 3.8 3.4 - 5.3 mmol/L Chloride 106 98 - 110 mmol/L Carbon Dioxide 20 20 - 32 mmol/L Anion Gap 8 3 - 14 mmol/L Glucose 119 (*) 70 - 99 mg/dL Urea Nitrogen 20 7 - 21 mg/dL Creatinine 0.67 0.39 - 0.73 mg/dL GFR Estimate Value: GFR not calculated, patient <16 years old. Non GFR Calc GFR Estimate If Black Value: GFR not calculated, patient <16 years old. GFR Calc Calcium 8.2 (*) 9.1 - 10.3 mg/dL Bilirubin Total 1.1 0.2 - 1.3 mg/dL Albumin 3.9 3.4 - 5.0 g/dL Protein Total 6.8 6.8 - 8.8 g/dL Alkaline Phosphatase 472 130 - 530 U/L ALT 25 0 - 50 U/L AST 25 0 - 35 U/L INR Result Value Ref Range INR 1.46 (*) 0.86 - 1.14 BLOOD CULTURE Result Value Ref Range Specimen Description Blood Right Arm Culture Micro No growth after 7 hours Micro Report Status Pending EKG 12-LEAD, TRACING ONLY Result Value Ref Range Interpretation ECG Click View Image link to view waveform and result XR CHEST 2 VW Narrative: Exam: 2 views of the chest. History: Evaluate for pneumonia. Comparison: MRI from 05/24/2014. Radiographs from 04/15/2014. Findings: The lungs and pleural spaces are clear. Cardiac silhouette is normal in size. Operative changes through the chest, including Alfredo and Fontan procedures with unchanged fractured sternotomy wire. Pulmonary vessels are similar in size. Upper abdomen is normal. No acute osseous abnormality. Impression: Impression: Stable postoperative chest. No acute pulmonary disease. TAMMI CORTEZ MD I have reviewed this patient's history, examined the patient and reviewed relevant laboratory findings and diagnostic testing. I have discussed the plan of care with the patients primary team and patient and family agree with the findings and recommendations outlined above. Cordell Juarez M.D. [facility] Division of Pediatric Cardiology [facility] [employer]BL[employer] RIVETER documented in this encounter Medications at Time [...] syndrome Saturday documented as of this encounter Progress Notes Ana Clemons RN - 08/05/2014 6:21 PM CST Pt A/O, up independently. HR 70-90s, BPs 90-120s/50-60s. Tmax 98.6. Headache improved with tylenol and ice. Denied headache or any c/o pain this afternoon. Tolerating fair PO intake. Voiding adequately. Pt discharged home with parents at 1730. Discharge instructions and medications reviewed with pt and parents. Pt to f/u in clinic 2 weeks after discharge. No c/o pain at discharge, VSS at discharge. Pt met observation goals to discharge. MBLY RIVETER documented in this encounter H&P Notes Gayathri Ayala MD - 08/05/2014 2:23 AM CST Images from the original note were not included. History and Physical Jude Bills Date of : 2000 Age: [age] year old Date of Admission: 08/05/2014 Primary care provider: Deng Wallace Assessment and Plan: Jude is a 14 year old male with double outlet right ventricle, left ventricular hypoplasia, d-transposition of the great vessels and pulmonary stenosis s/p central shunt, Fortino, and Fontan with closureof fenestrations. He also has heterotaxy, malrotation of intestines, hx of GI bleeding, and ADHD. Heis admitted with fever and tachycardia. Tachycardia is primary concern given his afebrile state and his low cardiac reserves given his above history. 1. Cardiac: Preload dependent - Telemetry - Continue lisinopril 10 mg daily - Reassess with Dr. Juarez and pharmacy about AM dose of coumadin given his low INR (goal >2). Has been taking 2 mg MWFSS, 4 mg TR. 2. Respiratory: - Follow-up chest XR to rule-out pneumonia 3. FEN/ GI: - Regular diet - Encourage PO intake - Strict I&O - Continue home omeprazole. 4. Neuro: Discomfort - Tylenol PRN. No ibuprofen secondary to being on coumadin Patient staffed with radio tower technician Roland Caballero. Monik Whitley, PGY3 Chief Complaint: Fever History is obtained from the patient's parent(s) History of Present Illness: This patient is a 14 year old male who presents with headache, fever, and sore throat. He developed a headache 08/03 that was mild. Then 08/04 it worsened; he went to the nurse's office at school. He still went to mandaen in the evening. Currently his headache is 8/10 and in the front-top part of his head. He also developed a fever this evening. Tmax was 103. He has a sore throat and runny nose as well.He's been eating regularly but last urinated after school and not since. He's had no cough, abdominal pain, myalgia, palpitations, light-headed/ dizziness, vomiting, diarrhea, dysuria. His eyes have looked red today. Due to his high fever his mother brought him in to the ED. In the ED he had persistent tachcyardia. His influenza and rapid strep were negative. Chest XR is pending. Past Medical History: Past Medical History Diagnosis Date ??? 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 Esophageal reflux ??? Congenital anomalies of spleen Polysplenia Past Surgical History: Past Surgical History Procedure Laterality Date ??? C repr by modified fontan fenestrated fontan ??? 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 ? Hc circumcision surgical non-dev >28 days age 2004 Social History: Lives with mom, dad, siblings. Attends 8th grade and is active in sports. Family History: Family History Problem Relation Age of Onset ??? Adopted: Yes ??? Unknown/Adopted child adopted from [place] at 10mo of age ??? Unknown/Adopted ??? Unknown/Adopted Immunizations: Immunization History Administered Date(s) Administered ??? Comvax (HIB/HepB) 10/16/2001, 11/27/2001 ? ? DTAP (<7y) 10/16/2001, 11/27/2001, 01/22/2002, 02/16/2003, 01/03/2005 ??? Hepatitis B 02/22/2003 ??? IPV 10/16/2001, 11/27/2001, 01/22/2002, 01/03/2005 ??? Influenza (H1N1) 04/11/2009, 06/15/2009 ??? Influenza (IIV3) 03/23/2002, 04/27/2002, 06/07/2005 ??? MMR 10/16/2001, 02/16/2003, 01/03/2005 ??? Pneumococcal (PCV 7) 10/16/2001, 11/27/2001, 01/22/2002 ??? Varicella 10/16/2001, 12/16/2008 Allergies: No Known Allergies Medications: Prescriptions prior to admission Medication Sig Dispense Refill ??? warfarin (COUMADIN) 4 MG tablet Take one tablet on Saturday and 90 tablet 2 ??? warfarin (COUMADIN) 2 MG tablet Take one tablet every Saturday, Saturday, Saturday and Saturday. 90 tablet 0 ??? dexmethylphenidate (FOCALIN XR) 15 MG 24 hr capsule Take 15 mg by mouth daily ??? omeprazole (PRILOSEC) 20 MG capsule Take 1 capsule (20 mg) by mouth daily 90 capsule 3 ??? lisinopril (PRINIVIL,ZESTRIL) 10 MG tablet Take 1 tablet (10 mg) by mouth daily 90 tablet 10 ??? Loratadine (CLARITIN PO) Take by mouth. Review of Systems: The 10 point Review of Systems is negative other than noted in the HPI Physical Exam: Vitals were reviewed Temp: 101.2 ??F (38.4 ??C) Temp src: Tympanic BP: 110/66 mmHg (R UE) Pulse: 102 Heart Rate: 102 Resp: 20 SpO2: 94 % O2 Device: None (Room air) Constitutional: Awake, alert, cooperative, no apparent distress, and appears stated age. Eyes: Lids and lashes normal, pupils equal, round and reactive to light, extra ocular muscles intact, mildly injected conjunctiva. ENT: Normocephalic, without obvious abnormality, atramatic, external ears and TMs without lesions, oral pharynx with moist mucus membranes, tonsils without erythema or exudates, gums normal and good dentition. Neck: Supple, symmetrical, trachea midline, no adenopathy. Hematologic / Lymphatic: No cervical lymphadenopathy and no supraclavicular lymphadenopathy. Back: No costal vertebral tenderness. Lungs: No increased work of breathing, good air exchange, clear to auscultation bilaterally, no crackles or wheezing. Cardiovascular: Regular rate and rhythm, normal S1 and S2, no S3 or S4, and no murmur noted. Abdomen: Normal bowel sounds, soft, non-distended, non-tender, no masses palpated, no hepatosplenomegally. Musculoskeletal: No redness, warmth, or swelling of the joints. Tone is normal. Neurologic: Awake, alert, oriented to name, place and time. Cranial nerves II- XII are grossly intact. Neuropsychiatric: Normal affect, mood, orientation, memory and insight. Skin: No rashes, erythema, pallor, petechia or purpura. Data: All laboratory and imaging data in the past 24 hours reviewed EKG results performed in ED consistent with previous EKGs Chest xray is pending. MBLY RIVETER documented in this encounter ED Notes Shashi Beavers MD - 08/05/2014 12:25 AM CST History Chief Complaint Patient presents with ??? Fever HPI History obtained from family Jude is a 14 year old male with complex cardiac history, s/p complete repair with Fontan in 2006. Hepresents at 12:22 AM with mother for 1 day of headache and fever. He was in normal state of health until yesterday morning, when he developed a headache at school. He was given tylenol by the school nurse. His temperature was not taken until after mandaen, when mom thought he felt warm. His temperaturewas 103. Tylenol was given, with decrease in his fever to 102. Mom called Cardiology, and she was directed to the ED. No decrease in his oral intake. No cough. No rash, dysuria, emesis, body aches. No known sick contacts. He does endorse a sore throat. PMHx: Past Medical History Diagnosis Date ??? 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 Esophageal reflux ??? Congenital anomalies of spleen Polysplenia Past Surgical History Procedure Laterality Date ??? C repr by modified fontan fenestrated fontan ??? 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 ? Hc circumcision surgical non-dev >28 days age 2004 These were reviewed with the patient/family. MEDICATIONS were reviewed and are as follows: Current Facility-Administered Medications Medication ??? dexmethylphenidate (FOCALIN XR) 24 hr capsule 15 mg ??? lisinopril (PRINIVIL,ZESTRIL) tablet 10 mg ??? omeprazole (priLOSEC) capsule 20 mg ??? acetaminophen (TYLENOL) tablet 650 mg ALLERGIES: Review of patient's allergies indicates no known allergies. IMMUNIZATIONS: UTD by report. SOCIAL HISTORY: Jude lives with parents. He does attend school. I have reviewed the Medications, Allergies, Past Medical and Surgical History, and Social History inthe Epic system. Review of Systems Please see HPI for pertinent positives and negatives. All other systems reviewed and found to be negative. Physical Exam BP: 110/66 mmHg (R UE) Pulse: 102 Heart Rate: 102 Temp: 99.3 ??F (37.4 ??C) Resp: 20 Weight: 48.9 kg (107 lb 12.9 oz) SpO2: 94 % Physical Exam Appearance: Alert and appropriate, well developed, nontoxic, with moist mucous membranes. Laying in bed. HEENT: Head: Normocephalic and atraumatic. Eyes: PERRL, EOM grossly intact, conjunctivae sclera mildly injected. . Ears: Tympanic membranes clear bilaterally, without inflammation or effusion. Nose: Nares clear with no active discharge. Mouth/Throat: No oral lesions, pharynx erythematous with no erythema or exudate. Neck: Supple, no masses, no meningismus. No significant cervical lymphadenopathy. Pulmonary: No grunting, flaring, retractions or stridor. Good air entry, clear to auscultation bilaterally, with no rales, rhonchi, or wheezing. Cardiovascular: Regular rhythm, tachycardic. normal S1 and S2, with no murmurs. Normal symmetric peripheral pulses and brisk cap refill. Abdominal: Normal bowel sounds, soft, nontender, nondistended, with no masses and no hepatosplenomegaly. Neurologic: Alert and oriented, cranial nerves II-XII grossly intact, moving all extremities equallywith grossly normal coordination Extremities/Back: No deformity, no CVA tenderness. Skin: No significant rashes, ecchymoses, or lacerations. Genitourinary: Deferred Rectal: Deferred ED Course Procedures XR Chest 2 Views (Results Pending) Per vice president payment --> No focal airspace opacity Results for orders placed during the hospital encounter of 08/05/14 (from the past 24 hour(s)) RAPID STREP GROUP A SCREEN POCT Result Value Ref Range Rapid Strep A Screen Negative neg Internal QC OK Yes INFLUENZA A/B ANTIGEN Result Value Ref Range Influenza A/B Agn Specimen Nasopharyngeal Influenza A Negative NEG Influenza B NEG Value: Negative Test results must be correlated with clinical data. If necessary, results should be confirmed by a molecular assay or viral culture. CBC WITH PLATELETS DIFFERENTIAL Result Value Ref Range WBC 13.4 (*) 4.0 - 11.0 10e9/L RBC Count 5.13 3.7 - 5.3 10e12/L Hemoglobin 14.5 11.7 - 15.7 g/dL Hematocrit 44.0 35.0 - 47.0 % MCV 86 77 - 100 fl MCH 28.3 26.5 - 33.0 pg MCHC 33.0 31.5 - 36.5 g/dL RDW 13.9 10.0 - 15.0 % Platelet Count 156 150 - 450 10e9/L Diff Method Automated Method % Neutrophils 83.6 % Lymphocytes 7.6 % Monocytes 8.2 % Eosinophils 0.2 % Basophils 0.1 % Immature Granulocytes 0.3 Absolute Neutrophil 11.2 (*) 1.3 - 7.0 10e9/L Absolute Lymphocytes 1.0 1.0 - 5.8 10e9/L Absolute Monoctyes 1.1 0.0 - 1.3 10e9/L Absolute Eosinophils 0.0 0.0 - 0.7 10e9/L Absolute Basophils 0.0 0.0 - 0.2 10e9/L Abs Immature Granulocytes 0.0 0 - 0.4 10e9/L CRP INFLAMMATION Result Value Ref Range CRP Inflammation 3.0 0.0 - 8.0 mg/L COMPREHENSIVE METABOLIC PANEL Result Value Ref Range Sodium 134 133 - 143 mmol/L Potassium 3.8 3.4 - 5.3 mmol/L Chloride 106 98 - 110 mmol/L Carbon Dioxide 20 20 - 32 mmol/L Anion Gap 8 3 - 14 mmol/L Glucose 119 (*) 70 - 99 mg/dL Urea Nitrogen 20 7 - 21 mg/dL Creatinine 0.67 0.39 - 0.73 mg/dL GFR Estimate Value: GFR not calculated, patient <16 years old. Non GFR Calc GFR Estimate If Black Value: GFR not calculated, patient <16 years old. GFR Calc Calcium 8.2 (*) 9.1 - 10.3 mg/dL Bilirubin Total 1.1 0.2 - 1.3 mg/dL Albumin 3.9 3.4 - 5.0 g/dL Protein Total 6.8 6.8 - 8.8 g/dL Alkaline Phosphatase 472 130 - 530 U/L ALT 25 0 - 50 U/L AST 25 0 - 35 U/L INR Result Value Ref Range INR 1.46 (*) 0.86 - 1.14 EKG 12-LEAD, TRACING ONLY Result Value Ref Range Interpretation ECG Click View Image link to view waveform and result Medications dexmethylphenidate (FOCALIN XR) 24 hr capsule 15 mg (not administered) lisinopril (PRINIVIL,ZESTRIL) tablet 10 mg (not administered) omeprazole (priLOSEC) capsule 20 mg (not administered) acetaminophen (TYLENOL) tablet 650 mg (not administered) Old chart reviewed. Patient was attended to immediately upon arrival and assessed for immediate life-threatening conditions. History obtained from family. Critical care time: none Swab sent for rapid strep and flu: Discussed patient with radio tower technician, Dr. Wells. Due to tachycardia, obtained EKG, CRP, CBC, CXR. Due to tachycardia, concern for potential dehydration, admit for observation Assessments & Plan (with Medical Decision Making) Jude is a 14 year old with complex past cardiac history s/p repair here with fever and sore throat of one day duration. Tachycardia on exam is concerning for possible dehydration, a potentially critical situation in Fontan physiology, due to preload dependence. --Admit to Pediatric [place] Team for observation --CRP, CBC, CXR, EKG, INR ordered and pending --No nsaids, due to warfarin therapy --Cardiology team to determine further care I have reviewed the nursing notes. I have reviewed the findings, diagnosis, plan and need for follow up with the patient. Current Discharge Medication List Final diagnoses: Tachycardia 08/04/2014 [facility] EMERGENCY DEPARTMENT Yun Lucio MD PL-2 Pager [phone] This data was collected with the resident physician working in the Emergency Department. I saw and evaluated the patient and repeated the [place] portions of the history and physical exam. The plan of carehas been discussed with the patient and family by me or by the resident under my supervision. I haveread and edited the entire note. - MD Nimesh Vickers Alan Howard, MD 08/05/14 0625 MBLY RIVETER Cynthia Gloria RN - 08/05/2014 12:19 AM CST Pt with fever to 103 at home treated with tylenol that did not decrease fever much. Pt only complaint is a headache. MBLY RIVETER documented in this encounter Miscellaneous Notes Utilization Review - Luba Merchant MD - 08/05/2014 10:59 AM CST Admission Status; Secondary Review Determination Under the authority of the Utilization Management Committee, the utilization review process indicated a secondary review on the above patient. The review outcome is based on review of the medical records, discussions with staff, and applying clinical experience noted on the date of the review. () Inpatient Status Appropriate - This patient's medical care is consistent with medical management for inpatient care and reasonable inpatient medical practice. (X) Observation Status Appropriate - This patient does [...] or Observation Status. 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 He also has heterotaxy, malrotation of intestines, hx of GI bleeding, and ADHD with fever and tachycardia. 08/03 had DEL ROSARIO. Then 08/04 it worsened; he went to the nurse's office at school.He still went to mandaen in the evening. Currently his headache is 8/10 and in the front-top part of his head. He also developed a fever this evening. Tmax was 103. He has a sore throat and runny nose as well. He's been eating regularly but last urinated after school and not since. For this admission: In the ED he had persistent tachcyardia. His influenza and rapid strep were negative. Chest XR is pending. 1. Cardiac: Preload dependent - Telemetry - Continue lisinopril 10 mg daily - Reassess with Dr. Juarez and pharmacy about AM dose of coumadin given his low INR (goal >2). Has been taking 2 mg MWFSS, 4 mg TR. 2. Respiratory: - Follow-up chest XR to rule-out pneumonia 3. FEN/ GI: - Regular diet - Encourage PO intake - Strict I&O - Continue home omeprazole. Pt is a 14 yo male with major congenital heart disease, preload dependant and now with fever and decreased UOP. Given that this patient is preload dependant and a medically fragile cardiac patient, hascardiopulmonary comorbidities with need for continuous monitoring, and Strict I and O???s, patient met criteria for admission for monitoring to see if he would be stable for 24 hours and be eligible for dc or require further inpatient care. Given that patient was not requiring IVF, significant cardiacmedication adjustments, IV meds or antibiotics, level of care does not meet inpatient criteria. Patient meets criteria for observation management. The information on this document is developed [...] 6, section 70.4. Sincerely, Luba Merchant MD Geothermal Operations Engineer, Utilization Review/ Case Management [facility] Admission Status; Secondary Review Determination Office [phone] Deanne [phone] [facility] Plan of Care - Mary Kay Curiel RN - 08/05/2014 7:36 AM CST Problem: Goal Outcome Summary Goal: Goal Outcome Summary Outcome: No Change Admitted at 0300 from ED as U6 overflow- Tmax 99, no c/o headache. Lungs C/E/bilat with mild rhinitis. HR 70-90's- per mom, pt has hx of PVC/PAC's on cardiac stress tests. Per orange team , hold coumadin AM dose and wait for new dosing orders d/t non-therapeutic INR levels. Adequate UOP. Abrasion onR elbow and brace on L wrist d/t basketball injuries. R arm PIV saline locked. Waiting on results ofcultures drawn from ED, mom at bedside. Continue to monitor and notify MD with changes. MBLY RIVETER documented in this encounter Plan of Treatment Upcoming Encounters Date Type Specialty Care Team Description 07/27/2022 Ancillary Procedure Cardiology Cordell Juarez MD [address] [place] [phone] (Wo rk) 07/27/2022 Office Visit Cardiology Cordell Juarez MD [address] [place] [phone] (Wo rk) documented as of this encounter Procedures Procedure Name Priority Date/Time Associated Comments Diagnosis XR CHEST 2 VIEWS STAT 08/05/2014 3:44 AM Resul ts for this ASSEMBLY RIVETER procedure are i n the results section. EKG 12-LEAD, TRACING STAT 08/05/2014 3:15 AM R esults for this ONLY ASSEMBLY RIVETER procedure are i n the results section. MRSA MSSA PCR, NASAL Routine 08/05/2014 3:00 AM Tachycardia R esults for this SWAB ASSEMBLY RIVETER procedure are i n the results section. CBC WITH PLATELETS & STAT 08/05/2014 2:35 AM Tachycardia R esults for this DIFFERENTIAL ASSEMBLY RIVETER procedure are i n the results section. INR STAT 08/05/2014 2:35 AM Tachycardia Results f or this ASSEMBLY RIVETER procedure are i n the results section. CRP INFLAMMATION STAT 08/05/2014 2:35 AM Tachycardia Resul ts for this ASSEMBLY RIVETER procedure are i n the results section. COMPREHENSIVE STAT 08/05/2014 2:35 AM Tachycardia Results for this METABOLIC PANEL ASSEMBLY RIVETER procedure ar e in the results section. BLOOD CULTURE STAT 08/05/2014 2:35 AM Tachycardia Results for this ASSEMBLY RIVETER procedure are i n the results section. INFLUENZA A/B ANTIGEN STAT 08/05/2014 1:02 AM Results for this ASSEMBLY RIVETER procedure are i n the results section. RAPID STREP GROUP A STAT 08/05/2014 12:56 Resu lts for this SCREEN POCT AM ASSEMBLY RIVETER procedure are i n the results section. BETA HEMOLYTIC STREP STAT 08/05/2014 12:15 Tachycardia Res ults for this GROUP A CULTURE AM ASSEMBLY RIVETER procedure ar e in the results section. documented in this encounter Results XR Chest 2 Views (08/05/2014 3:44 AM ASSEMBLY RIVETER) Anatomical Region Laterality Modality Chest Computed Radiography Specimen (Source) Anatomical Location Collection Method / Collectio n Time Received Time / Laterality Volume Impressions 08/05/2014 7:31 AM ASSEMBLY RIVETER Impression: Stable postoperative chest. No acute pulmonary disease. TAMMI CORTEZ MD Narrative 08/05/2014 7:31 AM ASSEMBLY RIVETER Exam: 2 views of the chest. History: Evaluate for pneumonia. Comparison: MRI from 05/24/2014. Radiogra phs from 04/15/2014. Findings: The lungs and pleural spaces a re clear. Cardiac silhouette is normal in size. Operative changes thr ough the chest, including Alfredo and Fontan procedures with unchanged fra ctured sternotomy wire. Pulmonary vessels are similar in size. U pper abdomen is normal. No acute osseous abnormality. Procedure Note Tammi Cortez MD - 08/05/2014Fo rmatting of this note might be different from the original. Exam: 2 views of the chest. History: Evaluate for pneumonia. Comparison: MRI from 05/24/2014. Radiogra phs from 04/15/2014. Findings: The lungs and pleural spaces a re clear. Cardiac silhouette is normal in size. Operative changes thr ough the chest, including Alfredo and Fontan procedures with unchanged fra ctured sternotomy wire. Pulmonary vessels are similar in size. U pper abdomen is normal. No acute osseous abnormality. IMPRESSION Impression: Stable postoperative chest. No acute pulmonary disease. TAMMI CORTEZ MD Monik Garcia MD IMG DIAGNOSTIC IMAGING [facility] EKG 12 lead (08/05/2014 3:15 AM ASSEMBLY RIVETER) [facility] gist Method Time Signature Interpretation ECG Click View RADIOLOGY Image link RESULTS to view waveform and result Specimen (Source) Anatomical Collection Method Collection Time Re ceived Time Location / / Volume Laterality 08/05/2014 3:15 AM ASSEMBLY RIVETER Yun Kim MD ECG ORDERABLES Performing Organization Address City/State/ZIP Code Phon e Number RADIOLOGY RESULTS Methicillin Resistant Staph Aureus PCR (08/05/2014 3:00 AM ASSEMBLY RIVETER) Component Value Ref Test Analysis [facility] Range Method Time Signature Specimen Nares [facility] Methicillin Negative NEG [facility] Resist/Sens S. MRSA Negative: SA Negative ? ?MRSA and Staphylococcus aureus target DNA not [place] [facility] aureus PCR detected, presumed negative for MRSA and SA colonization or the number of [facility] bacteria present may be below the limit of detection for the assay. FDA BANK approved assay performed using [employer] GeneXpert(R) real-ti me PCR. Specimen Anatomical Collection Method Collection Time Receive d Time (Source) Location / / Volume Laterality Swab from nasal 08/05/2014 3:00 AM 2014 3:28 sinus (specimen) ASSEMBLY RIVETER AM ASSEMBLY RIVETER Rachelle Yoder MD LAB - MICRO GENERAL ORDERAB LES Performing Organization Address City/State/ZIP Code Phon e Number [facility] [address] [place] [address] [place] [facility] Blood culture, one site (08/05/2014 2:35 AM ASSEMBLY RIVETER) [facility] Method Time Signature Specimen Blood U OF [facility] Right Arm [email or web address]] Culture Micro No growth [facility] Micro Report [facility] 08/11/2014 [facility] Specimen Anatomical Collection Method Collection Time Receive d Time (Source) Location / / Volume Laterality Blood specimen VENOUS BLOOD / 08/05/2014 2:35 AM 08/05 2:41 (specimen) Unknown ASSEMBLY RIVETER AM ASSEMBLY RIVETER Shashi Beavers MD LAB - MICRO GENERAL ORDERABL ES Performing Organization Address City/State/ZIP Code Phon e Number [facility] [address] [place] [address] [place] [facility] (ABNORMAL) INR (08/05/2014 2:35 AM ASSEMBLY RIVETER) athologist Signature INR 1.46 (H) 0.86 - 1.14 [facility] Specimen Anatomical Collection Method Collection Time Receive d Time (Source) Location / / Volume Laterality Blood specimen 08/05/2014 2:35 AM 015 2:40 (specimen) ASSEMBLY RIVETER AM ASSEMBLY RIVETER Yun Kim MD LAB - BLOOD ORDERA BLES Performing Organization Address City/State/ZIP Code Phon e Number [facility] (ABNORMAL) Comprehensive metabolic panel (08/05/2014 2:35 AM ASSEMBLY RIVETER) athologist Signature Sodium 134 133 - 143 [facility] mmol/L [facility] [[email or web address]] Potassium 3.8 3.4 - 5.3 [facility] mmol/L [facility] [[email or web address]] Chloride 106 98 - 110 [facility] mmol/L [facility] [[email or web address]] Carbon Dioxide 20 20 - 32 [facility] mmol/L [facility] [[email or web address]] Anion Gap 8 3 - 14 [facility] mmol/L [facility] [[email or web address]] Glucose 119 (H) 70 - 99 [facility] mg/dL [facility] [[email or web address]] Comment: Effective 01/13/2014, the reference range for this assay has changed to reflect new instrumentation/methodology. Urea Nitrogen 20 7 - 21 mg/dL [facility] Comment: Effective 01/13/2014, the reference range for this assay has changed to reflect new instrumentation/methodology. Creatinine 0.67 0.39 - 0.73 mg/dL [facility] OF [facility] GFR Estimate GFR not calculated, patient <16 years old. mL/min/1.7m2 [facility] Non GFR Calc [facility] [[email or web address]] GFR Estimate If Black GFR not calculated, patient <16 years old. mL/m in/1.7m2 [facility] GFR Calc [facility] Calcium 8.2 (L) 9.1 - 10.3 mg/dL [facility] Comment: Effective 01/13/2014, the reference range for this assay has changed to reflect new instrumentation/methodology. Bilirubin Total 1.1 0.2 - 1.3 mg/dL U OF [facility] Albumin 3.9 3.4 - 5.0 g/dL [facility] Protein Total 6.8 6.8 - 8.8 g/dL [facility] Alkaline Phosphatase 472 130 - 530 U/L [facility] ALT 25 0 - 50 U/L U OF [facility] AST 25 0 - 35 U/L [facility] Specimen Anatomical Collection Method Collection Time Receive d Time (Source) Location / / Volume Laterality Blood specimen 08/05/2014 2:35 AM 015 2:40 (specimen) ASSEMBLY RIVETER AM ASSEMBLY RIVETER Yun Kim MD LAB - BLOOD ORDERA BLES Performing Organization Address City/State/ZIP Code Phon e Number [facility] CRP inflammation (08/05/2014 2:35 AM ASSEMBLY RIVETER) P athologist Signature CRP Inflammation 3.0 0.0 - 8.0 U OF mg/L [facility] Specimen Anatomical Collection Method Collection Time Receive d Time (Source) Location / / Volume Laterality Blood specimen 08/05/2014 2:35 AM 015 2:40 (specimen) ASSEMBLY RIVETER AM ASSEMBLY RIVETER Yun Kim MD LAB - BLOOD ORDERA BLES Performing Organization Address City/State/ZIP Code Phon e Number [facility] (ABNORMAL) CBC with platelets differential (08/05/2014 2:35 AM ASSEMBLY RIVETER) Patholo gist Method Time Signature WBC 13.4 (H) 4.0 - U OF 11.0 [facility] 10e9/L [facility] [[email or web address]] RBC Count 5.13 3.7 - 5.3 U OF M 10e12/L [facility] Hemoglobin 14.5 11.7 - U OF 15.7 g/dL [facility] Hematocrit 44.0 35.0 - U OF 47.0 % [facility] MCV 86 77 - 100 U OF M fl [facility] MCH 28.3 26.5 - U OF M 33.0 pg [facility] MCHC 33.0 31.5 - U OF M 36.5 g/dL [facility] RDW 13.9 10.0 - U OF M 15.0 % [facility] Platelet Count 156 150 - 450 U OF M 10e9/L [facility] Diff Method Automated U OF M Method [facility] % Neutrophils 83.6 % U OF M [facility] % Lymphocytes 7.6 % [facility] % Monocytes 8.2 % [facility] % Eosinophils 0.2 % [facility] % Basophils 0.1 % [facility] % Immature 0.3 % U OF M Granulocytes [facility] Absolute 11.2 (H) 1.3 - 7.0 U OF M Neutrophil 10e9/L [facility] Absolute 1.0 1.0 - 5.8 U OF M Lymphocytes 10e9/L [facility] Absolute 1.1 0.0 - 1.3 U OF M Monocytes 10e9/L [facility] Absolute 0.0 0.0 - 0.7 U OF M Eosinophils 10e9/L [facility] Absolute 0.0 0.0 - 0.2 U OF M Basophils 10e9/L [facility] Abs Immature 0.0 0 - 0.4 U OF M Granulocytes 10e9/L [facility] Specimen Anatomical Collection Method Collection Time Receive d Time (Source) Location / / Volume Laterality Blood specimen 08/05/2014 2:35 AM 015 2:40 (specimen) ASSEMBLY RIVETER AM ASSEMBLY RIVETER Yun Kim MD LAB - BLOOD ORDERA BLES Performing Organization Address City/State/ZIP Code Phon e Number [facility] Influenza A/B antigen (08/05/2014 1:02 AM ASSEMBLY RIVETER) Component Value Ref Test Analysis [facility] Range Method Time Signature Influenza A/B Nasopharyngeal U OF M Agn Specimen [facility] Influenza A Negative NEG [facility] Influenza B Negative NEG [facility] results must be correlated with clinical data. If ne cessary, results [facility] should be confirmed by a molecular assay or viral culture. [facility] Specimen (Source) Anatomical Collection Method Collection Time Re ceived Time Location / / Volume Laterality Specimen from 08/05/2014 1:02 08/05/2014 nasopharyngeal AM ASSEMBLY RIVETER 1:06 AM ASSEMBLY RIVETER structure (specimen) Yun Kim MD LAB - MICRO GENERA L ORDERABLES Performing Organization Address City/State/ZIP Code Phon e Number [address] [address] [facility] U OF M [facility] Rapid strep group A screen POCT (08/05/2014 12:56 AM ASSEMBLY RIVETER) P athologist Signature Rapid Strep A Negative neg Screen Internal QC OK Yes Specimen (Source) Anatomical Collection Method Collection Time Re ceived Time Location / / Volume Laterality Specimen from 08/05/2014 12:56 throat (specimen) AM ASSEMBLY RIVETER Yun Kim MD LAB - ENTER/EDIT P OCT Beta strep group A culture (08/05/2014 12:15 AM ASSEMBLY RIVETER) Component Value Ref Test Analysis Performed At Patholo gist Range Method Time Signature Specimen Throat [facility] Culture Micro No Beta INFECTIOUS Streptococcus DISEASE isolated DIAGNOSTIC LABORATORY Micro Report FINAL 08/07/2014 INFECTIOUS Status DISEASE DIAG[facility]ST[facility] LAB[facility]ATORY Specimen Anatomical Location / Collection Method Collection Jordon e Received Time (Source) Laterality / Volume Specimen from NASOPHARYNGEAL 08/05/2014 12:15 08/05/19 15 throat STRUCTURE / Unknown AM ASSEMBLY RIVETER 12:57 AM ASSEMBLY RIVETER (specimen) Yun Kim MD LAB - MICRO GENERA L ORDERABLES Performing Organization Address City/State/ZIP Code Phon e Number INFECTIOUS DISEASES [address] [place] [address] DIAGNOSTIC LABORATORY, [facility] INFECTIOUS DISEASE [address] [place] [address], [facility] DIAGNOSTIC LABORATORY documented in this encounter Visit Diagnoses Diagnosis Fever - Primary Fever, unspecified Tachycardia Tachycardia, unspecified S/P Fontan procedure Other postprocedural status Fever Fever, unspecified 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 Tachycardia with 100 - 120 beats per min xochilt Tachycardia Tachycardia, unspecified Tachycardia with 100 - 120 beats per min xochilt documented in this encounter Admitting Diagnoses Diagnosis Tachycardia Tachycardia, unspecified documented in this encounter Administered Medications Inactive Administered Medications - up to 3 most recent administrations Medication Order MAR Action Action Date Dose Rate Site acetaminophen (TYLENOL) tablet 650 Given 08/05/2014 9:36 AM ASSEMBLY RIVETER 650 mg mg 650 mg, Oral, EVERY 4 HOURS PRN, mild pain, fever, Starting on Suze 08/05/14 at 0311, Fever (temp greater than 38.0C, 100.4F). If pain is not improved after 15 minutes, consider giving ibuprofen or other non-acetaminophen containing analgesic (if ordered) or call provider. Maximum acetaminophen dose from all sources = 75 mg/kg/day not to exceed 4 grams/day. dexmethylphenidate (FOCALIN XR) 24 hr capsule Given 9:36 AM ASSEMBLY RIVETER 15 mg 15 mg 15 mg, Oral, DAILY, First dose on Suze 08/05/14 at 0800 lisinopril (PRINIVIL,ZESTRIL) tablet 10 mg Given 08/05/2014 9:36 AM ASSEMBLY RIVETER 10 mg 10 mg, Oral, DAILY, First dose on Suze 08/05/14 at 0800 omeprazole (priLOSEC) capsule 20 mg Given 08/05/2014 9:36 AM ASSEMBLY RIVETER 20 mg 20 mg, Oral, DAILY, First dose on Suze 08/05/14 at 0800 documented in this encounter Active and Recently Administered Medications Times are shown in ASSEMBLY RIVETER. Scheduled Medication Order 08/03/2014 08/04/2014 08/05/2014 dexmethylphenidate (FOCALIN XR) 24 hr capsule 15 mg (CANCELED) 0936 (Given - Provider: Ana Clemons RN) 15 mg, Oral, DAILY, First dose on Suze 08/05/14 at 0800 lisinopril (PRINIVIL,ZESTRIL) tablet 10 mg (CANCELED) 0936 (Given - Provider: Ana Clemons RN) 10 mg, Oral, DAILY, First dose on Suze 08/05/14 at 0800 omeprazole (priLOSEC) capsule 20 mg (CANCELED) 0936 (Given - Provider: Ana Clemons RN) 20 mg, Oral, DAILY, First dose on Suze 08/05/14 at 0800 PRN Medication Order 08/03/2014 08/04/2014 08/05/2014 acetaminophen (TYLENOL) tablet 650 mg (CANCELED) 0936 (Given - Provider: Ana Clemons RN) 650 mg, Oral, EVERY 4 HOURS PRN, mild pa in, fever, Starting Suze 08/05/14 at 0311, Fever (temp greater than 38.0C, 100.4F). If pain is not improved after 15 minutes, consider giving ibuprofen or other non -acetaminophen containing analgesic (if ordered) or call provider. Maximum acetaminophen dose from all sources = 75 mg/kg/day not to exceed 4 grams/day. documented in this encounter
--- OUTSIDE RECORDS SUMMARY | 2022-04-10 10:00 | XMS_ITS | Encounter Summary ---
:2000 Author Organization [address] [place] [address] Care Team Providers Name Role Phone Unavailable Primary Care Provider Unavailable Encounter Details Date Type Department Care Team Description 05/04/2014 Telephone [facility] Pediatric Cordell Juarez MD Specialty Clinic [address] [address] [address] [facility] [place] [address] [facility] [place] [address] [phone] Social History Tobacco Use Types Packs/Day Years Used Date Smoking Tobacco: Never Comments: none at home Alcohol Use Standard Drinks/Week Comments Not Asked 0 (1 standard drink = 0.6 oz pure alcoho l) Sex Assigned at Date Recorded Male 03/09/2019 1:21 PM CDT documented as of this encounter Miscellaneous Notes Telephone Encounter - Kim Summers MA - 05/04/2014 3:57 PM CST Jaimie Gutiérrez called and was wondering about the MRI that you were going to set up for jose. She also stated that her pharmacy will only fill a 30 day supply of luke's (Coumadin) 2 mg tabs, and she waswondering if it would be possible if you could give her another prescription for the 4 mg tablets ofthe (Coumadin) as well. Mom would like a call back on this matter, Thanks. IR SUPERVISOR documented in this encounter Plan of Treatment Upcoming Encounters Date Type Specialty Care Team Description 07/27/2022 Ancillary Procedure Cardiology Cordell Juarez MD [address] [place], [place] [id number] (Wo rk) 07/27/2022 Office Visit Cardiology Cordell Juarez MD [address] [place], [place] [id number] (Wo rk) documented as of this encounter Visit Diagnoses Not on filedocumented in this encounter
--- OUTSIDE RECORDS SUMMARY | 2022-04-10 10:00 | XMS_ITS | Encounter Summary ---
:2000 Author Organization [place] Address [facility] [place] [address] Care Team Providers Name Role Phone Unavailable Primary Care Provider Unavailable Reason for Visit Reason Comments Chest Pain chest pain sharp for 3 days Encounter Details Date Type Department Care Team Description 04/15/2014 Emergency [facility] Randa Umanzor est pain (Primary Dx); [facility] Emergency AMD Hypoplastic left heart syndrome; Department [address] [facility] S/P Fontan procedure [address] [facility] [address] [place] [address] [place], [place] [phone] [facility] [phone] (Wo rk) Social History Tobacco Use Types Packs/Day Years Used Date Smoking Tobacco: Never Comments: none at home Alcohol Use Standard Drinks/Week Comments Not Asked 0 (1 standard drink = 0.6 oz pure alcoho l) Sex Assigned at Date Recorded Male 03/09/2019 1:21 PM CDT documented as of this encounter Last Filed Vital Signs Vital Sign Reading Time Taken Comments Blood Pressure 114/67 04/15/2014 3:00 PM CDT Pulse 94 04/15/2014 11:58 AM CDT Temperature 36.6 ??C (97.8 ??F) 04/15/2014 11:58 AM CDT Respiratory Rate 18 04/15/2014 3:17 PM CDT Oxygen Saturation 96% 04/15/2014 3:00 PM CDT Inhaled Oxygen Concentration - - Weight 47.9 kg (105 lb 9.6 oz) 04/15/2014 11:58 AM CDT Height - - Body Mass Index - - documented in this encounter Discharge Instructions Discharge InstructionsJennifer Govea MD - 04/15/2014 2:56 PM CDT Emergency Department Discharge Information for Jued Roque was seen in the [facility] Department today for chest pain by Dr. Umanzor and Dr. Govea. We recommend that you wear a Holter monitor at home for 48 hours. If Jude has discomfort from fever or other pain, he can have: Acetaminophen (Tylenol) every 4-6 hours as needed (no more than 5 doses per day). His dose is: 20 ml (640 mg) of the ???s or children???s liquid OR 2 regular strength tabs (650 mg) (43.2+ kg/96+ lb) NOTE: If your acetaminophen (Tylenol) came with a dropper marked with 0.4 and 0.8 ml, call us ([phone]) or check with your doctor about the dose before using it. AND/OR Ibuprofen (Advil, Motrin) every 6 hours as needed. His dose is: 1 tab of the 400 mg prescription tabs (40-60 kg/88-132 lbs) These doses are calculated based on your child's weight today, and are rounded to hmbi-dv-ykqmeqo amounts. If you have a prescription for acetaminophen or ibuprofen, the dose may be slightly different.Either dose is safe. If you have questions about dosing, ask a doctor or pharmacist. Please return to the ED or contact his primary physician if he becomes much more ill, if he has severe pain, or if you have any other concerns. Please make an appointment to follow up with cardiology in 14 days. documented in this encounter Medications at Time [...] MG Take one tablet 90 tablet 0 201304/16/2014 tabletIndications: S/P every Saturday, Fontan procedure Saturday, Saturday and Saturday. warfarin (COUMADIN) 4 MG Take one tablet 90 tablet 2 201107/23/2014 tabletIndications: on Saturday and Hypoplastic left heart syndrome documented as of this encounter Consult Notes Marisabel Ugarte MD - 04/15/2014 8:52 PM CDT [facility] Consult Note Pediatric cardiology was asked to consult on this patient for chest pain. 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 He had device closure of his Fontan fenestration in 01/2007 and has continued to do very well from a cardiac standpoint. He presented with a 3-day history of intermittent chest pain. His labs and imaging are reassuring today - pain is likely musculoskeletalin nature. Echo (04/15/2014): Good single ventricle function, low velocity unobstructed flow in Fortino and Fontan. No fontan fenestration seen. No pericardial effusion. EKG (04/15/2014): NSR, RAD, RVH Recommendations: 1. Obtain EKG, CXR, Echo, BNP, and Troponin - CXR normal (no infiltrates, PTX), BNP 44 and trop negative. 2. Labs/imaging are reassuring - normal BNP/Trop, CXR, EKG with NSR, echo without pericardial effusion and with good function. He is stable for discharge to home. Pain is likely musculoskeletal in nature - possibly due to recent viral infection 3. Holter monitor at discharge 4. Follow-up with primary public policy mediator, Dr. Cordell Juarez in 2 weeks. Abi Benz MD Pediatric Behaviorist History of Present Illness: Jude reports a 3 day h/o intermittent chest pain. The pain is sharp, 6/10, and located at the left sterno-costal junction. The pain comes and goes spontaneously and is not improved or exacerbated by anything. He notes mild palpitations with the CP but no SOB, dizziness, lightheadedness. The pain does n ot radiate and is not pleuritic in nature. He had a mild URI with cough and congestion that started 5 days ago and lasted for 2-3 days. He has otherwise been feeling well recently without fever. His father has also had recent URI symptoms. Jude has continued to remain active with no new activities andno chest trauma. The chest pain has begun to scare him and when he experienced an episode while at school this morning, he was brought to the ED by his father. The pain resolved without intervention prior to arrival to the ED. PMH: Past Medical History Diagnosis Date ??? 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 Esophageal reflux ??? Congenital anomalies of spleen Polysplenia Social History: Jude is in the 8th grade and lives in [place], [place]. Attending Attestation: Attestation: This patient has been seen and evaluated by me, Marisabel Ugarte MD. Discussed with the resident and agree with the findings and plan in this note. I have reviewed today's vital signs, medications, labs and imaging. Marisabel Ugarte MD, PhD Review of Systems: No parent available for Review of Systems Medications: I have reviewed this patient's current medications Physical Exam: Vital Ranges Hemodynamics Temp: [97.8 ??F (36.6 ??C)] 97.8 ??F (36.6 ??C) Pulse: [94] 94 Heart Rate: [79-98] 79 Resp: [14-18] 18 BP: (104-122)/(59-85) 114/67 mmHg SpO2: [96 %-100 %] 96 % BP - Mean: [77-105] 80 Location: [-] Filed Vitals: 04/15/14 1158 Weight: 47.9 kg (105 lb 9.6 oz) Weight change: General - Awake, alert, NAD HEENT - NCAT, MMM, no LAD Cardiac - RRR, NL S1, Single S2, 2/6 systolic murmur at LLSB, no rubs Respiratory - CTAB, aeration equal throughout, no WOB Abdominal - NABS, s/nt/nd, no HSM; no reproducible CP Ext / Skin - WWP, no rashes, 2+ pulses in upper and lower extremities Neuro - Grossly intact Labs No results found for this basename: NA, POTASSIUM, CHLORIDE, CO2, BUN, CR, GLUCOSE, GOYO, CALCIUMIONIZ, in the last 168 hours No results found for this basename: MAG, PHOS, ALBUMIN, PREALB, in the last 168 hours No results found for this basename: OXYV, LACT, in the last 168 hours No results found for this basename: HGB, PLT, XA, PTT, INR, in the last 168 hours No results found for this basename: WBC,SED, CRP, in the last 168 hours No results found for this basename: CULT, in the last 168 hours ABGNo results found for this basename: PH, PCO2, PO2, HCO3, in the last 168 hours VBGNo results found for this basename: PHV, PCO2V, PO2V, HCO3V, in the last 168 hours documented in this encounter ED Notes Shante Salcedo RN - 04/15/2014 3:26 PM CDT EDT provided pt. With ordered Holter monitor that was ordered prior to d/c from er. Shante Salcedo RN - 04/15/2014 1:33 PM CDT Tech at the bedside to perform ordered echo. Shante Salcedo RN - 04/15/2014 12:57 PM CDT Pt. Over in Radiology for ordered imaging at this time. Continue to monitor. Shante Salcedo RN - 04/15/2014 12:08 PM CDT Pt. Reported intermittent substernal R and L sided chest discomfort that started on Saturday while sitting in class. Pt. Reports a pain level of 6/10 when chest pain occurs. Pt. Having a hard time describing if anything makes the chest pain better or worse, just refers to it as random. Pt. Referredto three episodes of CP today prior to arrival in ER; pt. Denied shortness of breath, nausea, diaphoresis, lightheadness, dizziness, or anything or co-occurring symptoms with chest pain. Pt. Reported he has been able to run in gym class even when I've had the chest pain Carly Obrien RN - 04/15/2014 11:56 AM CDT chest pain sharp for 3 days Occuring more frequently. Happens at rest. Seen yesterday at [facility] for elbow pain and chest pain. 1.2 INR yesterday Randa Umanzor MD - 04/15/2014 11:55 AM CDT History Chief Complaint Patient presents with ??? Chest Pain chest pain sharp for 3 days HPI History obtained from family Jude is a 14 year old male with a PMH of complex congenital heart disease who presents at 11:55 AM with sharp, intermittent chest pain for three days. He was sitting at the table when the pain started three days ago. The pain occurs multiple times per day and last from a few minutes up to 30 minutes. He rates the pain from 0-6. The pain is located at his left sternum, right costal margin, or left costal margin. Nothing makes the pain better or worse. It is not related with breathing and he does not feel short of breath. Jude is otherwise healthy. He recovered from a mild URI earlier this week with cough and congestion. He has a good appetite and energy level. Jude did hurt his left elbow yesterdayin gym class when he dove for a ball. He was seen in urgent care and placed in a soft cast due to concern for hairline fracture. He will follow- up with orthopedics clinic on Saturday. Parents brought nataliyain for evaluation today because he mentioned he was scared about the chest pain last night. 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 He underwent a central shunt, followed by a Fortino procedure and completion of a Fontan procedure at the [facility] in [place]. He had catheter closure of his Fontan fenestration at the [facility] in January 2007. Most recent echo 08/12/13 revealed good function of his single ventricle with mild AV valve regurgitation. DP:dT was 1212. There was normal low velocity flow in the Fontan and no fenestration was seen. No pericardial effusion was noted. PMHx: Past Medical History Diagnosis Date ??? 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 Esophageal reflux ??? Congenital anomalies of spleen Polysplenia Past Surgical History Procedure Laterality Date ??? C repr by modified fontan fenestrated fontan ??? 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 ? Hc circumcision surgical non-dev >28 days age 2005 These were reviewed with the patient/family. MEDICATIONS were reviewed and are as follows: No current facility-administered medications for this encounter. Current Outpatient Prescriptions Medication ??? warfarin (COUMADIN) 2 MG tablet ??? dexmethylphenidate (FOCALIN XR) 15 MG 24 hr capsule ??? omeprazole (PRILOSEC) 20 MG capsule ??? lisinopril (PRINIVIL,ZESTRIL) 10 MG tablet ??? Loratadine (CLARITIN PO) ??? warfarin (COUMADIN) 4 MG tablet ALLERGIES: Review of patient's allergies indicates no known allergies. IMMUNIZATIONS: UTD by report. SOCIAL HISTORY: Jude lives with his parents and three brothers. He does attend school. I have reviewed the Medications, Allergies, Past Medical and Surgical History, and Social History inthe Coubic system. Review of Systems Please see HPI for pertinent positives and negatives. All other systems reviewed and found to be negative. Physical Exam BP 104/67 Pulse 94 Temp(Src) 97.8 ??F (36.6 ??C) (Tympanic) Resp 18 Wt 47.9 kg (105 lb 9.6 oz) SpO2 99% Physical Exam Appearance: Alert and appropriate, well [...] wheezing. Cardiovascular: Regular rate and rhythm, normal S1, single S2, 2/6 systolic murmur loudest at left upper sternal border. Normal symmetric peripheral pulses and brisk cap refill. No pain to palpation ofchest Abdominal: Normal bowel sounds, soft, nontender, nondistended, with no masses and no hepatosplenomegaly. Neurologic: Alert and oriented, cranial nerves II-XII grossly intact, moving all extremities equallywith grossly normal coordination and normal gait. Extremities/Back: No deformity, no CVA tenderness. Skin: No significant rashes. Well healed vertical chest scar. Left arm wrapped in soft cast, intact distal perfusion. Genitourinary: Deferred Rectal: Deferred ED Course Procedures Results for orders placed during the hospital encounter of 04/15/14 (from the past 24 hour(s)) XR CHEST 2 VW Narrative: XR CHEST 2 VW 04/15/2014 1:03 PM CLINICAL HISTORY: chest pain, COMPARISON: 07/06/2013 FINDINGS: Lung volumes are high. There is no focal lung disease. Pleural spaces are clear. Heart size is normal. Fontan calcification is unchanged. Impression: IMPRESSION: Clear lungs. SALEEM MICHAUD MD NT PROBNP INPATIENT Result Value Range N-Terminal Pro BNP Inpatient 44 0 - 240 pg/mL TROPONIN I Result Value Range Troponin I ES 0.000 - 0.045 ug/L Value: <0.015 The 99th percentile for upper reference range is 0.045 ug/L. Troponin values in the range of 0.045 - 0.120 ug/L may be associated with risks of adverse clinical events. Effective 01/13/2014, the reference range for this assay has changed to reflect new instrumentation/methodology. Medications - No data to display Old chart reviewed. Patient was attended to immediately upon arrival and assessed for immediate life-threatening conditions. EKG reviewed, similar to prior. CXR obtained and reviewed, no pneumonia, pneumothorax, cardiomegaly. 2:45 PM - cardiology evaluated patient the ED. Looked at echocardiogram and EKG, which are unremarkable. Critical care time: none Assessments & Plan (with Medical Decision Making) Jude is a 14 year old male with history of Fontan procedure for double outlet right ventricle, d-transposition, pulmonary stenosis and hypoplastic left ventricle who presents with sharp intermittent chest pain for three days. Cardiology evaluated patient in the ED. EKG, BNP, troponin, and echocardiogram were unremarkable, without evidence of LA, CHF, active arrhythmia or other cardiac abnormality causing chest pain. CXR showed no pneumonia or pneumothorax. Cardiology is comfortable with discharge home with Holter monitor. Family is comfortable with discharge. - Discharge home with Holter monitor for 48 hours - Follow up on Saturday with orthopedics as previously scheduled for left arm - Follow up in two weeks with cardiology. Cardiology will be in touch with family to set up appointment - Return if worse or new concerns in the meantime. I have reviewed the nursing notes. I have reviewed the findings, diagnosis, plan and need for follow up with the patient. New Prescriptions No medications on file Final diagnoses: Chest pain Patient discussed with ED attending, Dr. Umanzor. Jennifer Govea MD, PL-[address] [facility] Pediatric Resident [phone] This data was collected with the resident physician working in the Emergency Department. I saw and evaluated the patient and repeated the norton portions of the history and physical exam. The plan of carehas been discussed with the patient and family by me or by the resident under my supervision. I haveread and edited the entire note. Randa Umanzor MD 04/15/2014 [facility] EM[facility] Randa Umanzor MD 04/15/14 1537 documented in this encounter Plan of Treatment Upcoming Encounters Date Type Specialty Care Team Description 07/27/2022 Ancillary Procedure Cardiology Cordell Juarez MD [address] [facility] [place] [address] (Wo rk) 07/27/2022 Office Visit Cardiology Cordell Juarez MD [address] [facility] [place] [address] (Wo rk) Scheduled Orders Name Type Priority Associated Diagnoses Order S chedule Holter set up and scan EKG STAT One T isaiah for 1 Occurrences - 48 hrs peds starting 04/15 until 04/15/2014 documented as of this encounter Procedures Procedure Name Priority Date/Time Associated Diagnosis Comme nts ECHO PEDIATRIC STAT 04/15/2014 2:18 PM Results for this COMPLETE CDT procedure are i n the results section. TROPONIN I STAT 04/15/2014 1:31 PM Results f or this CDT procedure are i n the results section. NT PROBNP INPATIENT STAT 04/15/2014 1:31 PM Re sults for this CDT procedure are i n the results section. XR CHEST 2 VIEWS STAT 04/15/2014 1:03 PM Resul ts for this CDT procedure are i n the results section. HOLTER MONITOR 04/15/2014 12:00 AM CARDIAC - HIM SCAN CDT documented in this encounter Results Echo pediatric complete (04/15/2014 2:18 PM CDT) Anatomical Region Laterality Modality Echocardiography Specimen (Source) Anatomical Location Collection Method / Collectio n Time Received Time / Laterality Volume Narrative 04/20/2014 5:57 PM SKIN THERAPIST PEDIATRIC ECHOCARDIOGRAM [facility] osvaldo ? Age: 801/31/2000 ??Wt: 47.9 kg ??Ht: ??149 cm ?? BSA: 1.4 m2 ?? BP: 113/73 [employer] ?? 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 Qualitatively normal ventricular functio n and Fontan. ??Patient with a moderately hypoplastic left ventricle. ? ?The baseline anatomy included DORV with D-malposed great arteries. ??There is no pericardial fluid collection. M-Mode Report Left Atrium ? mm Aortic Root ?mm LV end Diastolic ? mm LV end Systolic ? mm Shortening Fraction ? % Intravent Septum ?mm LV Post Wall ?mm ?? 1. ECG shows normal sinus rhythm. 2. Normal left atrial dimension. 3. Normal left ventricular dimension and contractility. 2-Dimensional Report Recordings are performed from parasterna l, apical, subcostal and suprasternal notch windows. Anatomic rel ationships are not normal. There is situs that is solitus. ??It would marquita ear with levocardia. ??There is a double outlet right ventricle with D-mal posed great arteries, status post Fontan. ??There is a large inlet ventric ular septal defect that gives an appearance of double inlet left ventricl e but short axis imaging shows that two separate ventricles are present . ??Aortic, mitral, and tricuspid valve motions are normal. No pulmonary v alve is seen. ??The systemic venous inflows are normal and the Fontan connec tions are only seen with color imaging. ??Only the proximal pulmonary a rtery behind the aorta is seen. ?? Branch pulmonary stenosis is not exclude d. . There is a common atrium. Left atrial size is normal. Right atrial size is normal. Left and right ventricular size and contractility are n ormal. There is no evidence of pericardial effusion. The aortic arch is normal. Not Evaluated Coronary sinus, aortic arc h situs and coronary arteries. Doppler Report Color flow and spectral Doppler are util ized. There is no mitral valve regurgitation. There is trace to mild tr icuspid regurgitation. ?? Ventricular dp/dt is 1070 to 1400 mmHg/s ec. ??Normal flows are recorded in the right ventricular outflow tract to a scending aorta and descending thoracic and abdominal aorta. The aortic valve appears to be competent. ?? SVC and IVC flows are low velocity with a non-obstructed pattern and no flow reversals. ??No great artery level shunt is seen. ??No Fontan fenestration is seen. ??There is obligat e ventricular level mixing. ??There is no evidence of a wlbj-fq-jvpdt shunt at atrial, ventricular or great artery levels. At least one left and one right pulmonary vein is identified draining normally to the left atrium. ?? Not Evaluated Artemio Silva MD-Pager [phone] Gayathri Ayala MD-Pager [phone] Jorge Link MD-Pager [phone] or Cordell Juarez MD-Pager [phone] Jayson Bailey MD-Pager [phone] Vilma Rucker MD-Pager [phone] Constantine Herrera MD-Pager # [phone] Radha Carlson MD-Pager [phone] Temo Mccord MD ? Pager ??[phone] Jennifer Govea MD CV PEDS ECHO ORDERABLES Troponin I (04/15/2014 1:31 PM CDT) [facility] Method Time Signature Troponin I ES <0.015 0.000 - [facility] The 99th percentile for uppe r reference range is 0.045 ug/L. ??Troponin values in 0.045 AMPLATZ the range of 0.045 - 0.120 ug/L may be associated wit h risks of adverse ug/L [facility] clinical events. HOSPITAL Effective 01/13/2014, the re ference range for this assay has changed to reflect new instrumentation/methodology. Specimen Anatomical Collection Method Collection Time Receive d Time (Source) Location / / Volume Laterality Blood specimen 04/15/2014 1:31 PM 014 1:37 (specimen) CDT PM CDT Jennifer Govea MD LAB - BLOOD ORDERABLES Performing Organization Address City/State/ZIP Code Phon e Number [facility] BNP (04/15/2014 1:31 PM CDT) athologist Signature N-Terminal Pro 44 0 - 240 [facility] BNP Inpatient pg/mL [facility] Specimen Anatomical Collection Method Collection Time Receive d Time (Source) Location / / Volume Laterality Blood specimen 04/15/2014 1:31 PM 014 1:37 (specimen) CDT PM CDT Jennifer Govea MD LAB - BLOOD ORDERABLES Performing Organization Address City/[facility]/ZIP Code Phon e Number [facility] XR Chest 2 Views (04/15/2014 1:03 PM CDT) Anatomical Region Laterality Modality Chest Computed Radiography Specimen (Source) Anatomical Location Collection Method / Collectio n Time Received Time / Laterality Volume Impressions 04/15/2014 1:23 PM CDT IMPRESSION: Clear lungs. SALEEM MICHAUD MD Narrative 04/15/2014 1:23 PM CDT XR CHEST 2 VW 04/15/2014 1:03 PM CLINICAL HISTORY: chest pain, COMPARISON: 07/06/2013 FINDINGS: Lung volumes are high. There i s no focal lung disease. Pleural spaces are clear. Heart size is normal. Fontan calcification is unchanged. Procedure Note Saleem Michaud MD - 04/15/2014Form atting of this note might be different from the original. XR CHEST 2 VW 04/15/2014 1:03 PM CLINICAL HISTORY: chest pain, COMPARISON: 07/06/2013 FINDINGS: Lung volumes are high. There i s no focal lung disease. Pleural spaces are clear. Heart size is normal. Fontan calcification is unchanged. IMPRESSION IMPRESSION: Clear lungs. SALEEM MICHAUD MD Jennifer Govea MD IMG DIAGNOSTIC IMAGING [facility] HOLTER MONITOR CARDIAC - HIM SCAN (04/15/2014 12:00 AM CDT) Specimen (Source) Anatomical Location Collection Method / Collectio n Time Received Time / Laterality Volume 04/15/2014 Narrative This result has an attachment that is no t available. Provider Scan ECG ORDERABLES documented in this encounter Visit Diagnoses Diagnosis Chest pain - Primary Chest pain, unspecified 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 Other postprocedural status documented in this encounter
--- OUTSIDE RECORDS SUMMARY | 2022-04-10 10:00 | XMS_ITS | Encounter Summary ---
:2000 Author Organization [place] Address [facility] [place] [address] Care Team Providers Name Role Phone Unavailable Primary Care Provider Unavailable Reason for Visit Reason Onset Date Comments Refill Request 02/22/2015 Encounter Details Date Type Department Care Team Description 02/22/2015 Refill [facility] Pediatric Cordell Juarez MD Refill Request Specialty Clinic [place] [id number] [address] [facility] [place] [address] [facility] [place] [address] [phone] Social History Tobacco Use Types Packs/Day Years [...] 07/27/2022 Ancillary Procedure Cardiology Cordell Juarez MD [address] [place], [place] [address] [place] [address] (Wo rk) 07/27/2022 Office Visit Cardiology Larry, Cordell skelton MD [address] [place] [address] (Wo rk) documented as of this encounter Visit Diagnoses Diagnosis 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
--- OUTSIDE RECORDS SUMMARY | 2022-04-10 10:00 | XMS_ITS | Encounter Summary ---
:2000 Author Organization [address] [place] [address] Care Team Providers Name Role Phone Unavailable Primary Care Provider Unavailable Encounter Details Date Type Department Care Team Description 09/28/2015 Office Visit [facility] Cordell Juarez, Tach ycardia with heart rate 100-120 beats per minute (Primary Dx); Pediatric Specialty HYPOPLASTIC LEFT HEART SYND Clinic [address] [facility] [address] [place] [phone] Social History Tobacco Use Types Packs/Day Years Used Date Smoking Tobacco: Never Comments: none at home Alcohol Use Standard Drinks/Week Comments Not Asked 0 (1 standard drink = 0.6 oz pure alcoho l) Sex Assigned at Date Recorded Male 03/09/2019 1:21 PM CDT documented as of this encounter Progress Notes Cordell Juarez MD - 09/30/2015 9:32 PM CDT P not show up for appointment. 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
--- OUTSIDE RECORDS SUMMARY | 2022-04-10 10:00 | XMS_ITS | Encounter Summary ---
:2000 Author Organization [place] Address [facility] [place] [address] Care Team Providers Name Role Phone Unavailable Primary Care Provider Unavailable Reason for Visit Reason Onset Date Comments Refill Request 07/23/2014 Encounter Details Date Type Department Care Team Description 07/23/2014 Refill [facility] Pediatric Cordell Juarez MD Refill Request Specialty Clinic [place] 240586 [address] [facility] [address] [facility] [place] [address] [phone] Social History Tobacco Use Types Packs/Day Years [...] 07/27/2022 Ancillary Procedure Cardiology Cordell Juarez MD [address] [place], [place] [address] [place] [address] (Wo rk) 07/27/2022 Office Visit Cardiology Larry, Cordell skelton MD [address] [place] [address] (Wo rk) documented as of this encounter Visit Diagnoses Diagnosis 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
--- OUTSIDE RECORDS SUMMARY | 2022-04-10 10:00 | XMS_ITS | Encounter Summary ---
:2000 Author Organization [place] Address [address] [place] [address]. [place] [address] Care Team Providers Name Role Phone Unavailable Primary Care Provider Unavailable Reason for Visit (Routine) - Closed Specialty Diagnoses / Procedures Referred By Contact Refer red To Contact Radiology / Radiology. Diagnoses EPIC ORDER Sched with mom Jaimie [phone] Ur Mri Procedures MR CARDIAC W STRESS AND FLOW [address] [place] [phone] Phone: Referral ID Status Reason Start Date Expiration Date Visits Requ ested Visits Authorized [id number] Closed 05/18/2014 05/18/2015 1 1 Encounter Details Date Type Department Care Team Description 05/24/2014 Hospital Encounter [facility] Cordell Juarez , Atypical chest pain; [facility] Imaging Single ventricle, heterotaxia syndrome [address] [place] [address] [place] [phone] Social History Tobacco Use Types Packs/Day Years [...] Ancillary Procedure Cardiology Cordell Juarez MD [address] [place] [address] [address] (Wo rk) 07/27/2022 Office Visit Cardiology Cordell Juarez MD [address] [place] [address] [address] (Wo rk) documented as of this encounter Procedures Procedure Name Priority Date/Time Associated Diagnosis Comme nts MR CARDIAC W Routine 05/24/2014 10:[address] pain Results for this CONTRAST STRESS AND ATOMIC PROCESS ENGINEER Single ventricle, pro cedure are in FLOW heterotaxia syndrome the res ults section. documented in this encounter Results MRI Cardiac w/contrast & stress & flow (05/24/2014 10:53 AM ATOMIC PROCESS ENGINEER) Anatomical Region Laterality Modality Cardio, SUBRAD MR BODY, UMP MR CHEST Mag [facility] instituteic Resonance Specimen (Source) Anatomical Location Collection Method / Collectio n Time Received Time / Laterality Volume Impressions 05/24/2014 4:40 PM ATOMIC PROCESS ENGINEER IMPRESSION: 1. Double outlet right ventricle, hypopl [...] Constantine ENG MD Narrative 05/24/2014 4:40 PM ATOMIC PROCESS ENGINEER MR CARDIAC W CONTRAST STRESS AND FLOW, MRA CHEST W CONTRAST [id number]/8/2014 10:53 AM COMPARISON: ??None HISTORY: Double outlet [...] and volumetric postprocessing was perfor med by road cutter on an independent workstation. FINDINGS: SITUS: There [...] AND FLOW, M RA CHEST W CONTRAST [id number]/8/2014 10:53 AM COMPARISON: None HISTORY: Double outlet [...] and volumetric postprocessing was perfor med by road cutter on an independent workstation. FINDINGS: SITUS: There [...] MAR Action Action Date Dose Rate Site gadopentetate dimeglumine Given 05/24/2014 11:00 AM ATOMIC PROCESS ENGINEER 15 mLs (MAGNEVIST) IV solution 15 mL 15 mL, Intravenous, ONCE, On Sat05/24/14 at 1100, For 1 dose documented in this encounter
--- OUTSIDE RECORDS SUMMARY | 2022-04-10 10:00 | XMS_ITS | Encounter Summary ---
:2000 Author Organization [place] Address [facility] [place] [address] Care Team Providers Name Role Phone Unavailable Primary Care Provider Unavailable Encounter Details Date Type Department Care Team Description 05/10/2014 Orders Only [facility] Cordell Juarez Atyp icageovanny chest pain (Primary Dx); Pediatric Specialty Heterotaxy; Clinic [address] Single ventricle, heterotaxi a syndrome [address] [place] [phone] Social History Tobacco Use Types Packs/Day Years [...] 07/27/2022 Ancillary Procedure Cardiology Cordell Juarez MD [address] [place] [address] [address] [place] [address] (Wo rk) 07/27/2022 Office Visit Cardiology Larry, Cordell skelton MD [address] [place] [address] (Wo rk) documented as of this encounter Results MRA Chest w Contrast Angiogram (05/24/2014 10:53 AM COMMERCIAL HORTICULTURE INSTRUCTOR) Anatomical Region Laterality Modality Chest, SUBRAD IR PROCEDURE, UMP MR MRA M agnetic Resonance Specimen (Source) Anatomical Location Collection Method / Collectio n Time Received Time / Laterality Volume Impressions 05/24/2014 4:40 PM COMMERCIAL HORTICULTURE INSTRUCTOR IMPRESSION: 1. Double outlet right ventricle, hypopl [...] Constantine ENG MD Narrative 05/24/2014 4:40 PM COMMERCIAL HORTICULTURE INSTRUCTOR MR CARDIAC W CONTRAST STRESS AND FLOW, MRA CHEST W CONTRAST [id number]/8/2014 10:53 AM COMPARISON: ??None HISTORY: Double outlet [...] and volumetric postprocessing was perfor med by lang interpreter on an independent workstation. FINDINGS: SITUS: There [...] AND FLOW, M RA CHEST W CONTRAST [id number]/8/2014 10:53 AM COMPARISON: None HISTORY: Double outlet [...] and volumetric postprocessing was perfor med by lang interpreter on an independent workstation. FINDINGS: SITUS: There [...] Dr. Constantine ENG MD Cordell Juarez MD IM MRI ORDERABLES MRI Cardiac w/contrast & stress & flow (05/24/2014 10:53 AM COMMERCIAL HORTICULTURE INSTRUCTOR) Anatomical Region Laterality Modality Cardio, SUBRAD MR BODY, UMP MR CHEST Mag netic Resonance Specimen (Source) Anatomical Location Collection Method / Collectio n Time Received Time / Laterality Volume Impressions 05/24/2014 4:40 PM COMMERCIAL HORTICULTURE INSTRUCTOR IMPRESSION: 1. Double outlet right ventricle, hypopl [...] Constantine ENG MD Narrative 05/24/2014 4:40 PM COMMERCIAL HORTICULTURE INSTRUCTOR MR CARDIAC W CONTRAST STRESS AND FLOW, MRA CHEST W CONTRAST [id number]/8/2014 10:53 AM COMPARISON: ??None HISTORY: Double outlet [...] and volumetric postprocessing was perfor med by lang interpreter on an independent workstation. FINDINGS: SITUS: There [...] AND FLOW, M RA CHEST W CONTRAST [id number]/8/2014 10:53 AM COMPARISON: None HISTORY: Double outlet [...] and volumetric postprocessing was perfor med by lang interpreter on an independent workstation. 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
--- OUTSIDE RECORDS SUMMARY | 2022-04-10 10:00 | XMS_ITS | Encounter Summary ---
:2000 Author Organization [address] [place] [address] Care Team Providers Name Role Phone Unavailable Primary Care Provider Unavailable Reason for Visit Reason Onset Date Comments Refill Request 09/03/2013 Encounter Details Date Type Department Care Team Description 09/03/[address] [facility] Pediatric Larry Cordell MD Refill Request Specialty Clinic [address] [place] [address] [facility] [place] [address] [phone] Social History Tobacco Use Types Packs/Day Years Used Date Smoking Tobacco: Never Comments: none at home Alcohol Use Standard Drinks/Week Comments Not Asked 0 (1 standard drink = 0.6 oz pure alcoho l) Sex Assigned at Date Recorded Male 03/09/2019 1:21 PM CDT documented as of this encounter Miscellaneous Notes Telephone Encounter - Court Martin - 09/03/2013 10:42 AM CDT The Rx came through from [facility] for 4 mg. The last Rx you wrote for them was for 2 mg taking it Saturday, Saturday, Saturday, and Saturday. Not sure which one you wanted him on. documented in this encounter Plan of Treatment Upcoming Encounters Date Type Specialty Care Team Description 07/27/2022 Ancillary Procedure Cardiology Cordell Juarez MD [address] [facility] [address] [place] [address] (Wo rk) 07/27/2022 Office Visit Cardiology Cordell Juarez MD [address] [facility] [address] [place] [address] (Wo rk) documented as of this encounter Visit Diagnoses Diagnosis S/P Fontan procedure - Primary Other postprocedural status documented in this encounter
--- OUTSIDE RECORDS SUMMARY | 2022-04-10 10:00 | XMS_ITS | Encounter Summary ---
:2000 Author Organization [address] [place] [address] Care Team Providers Name Role Phone Unavailable Primary Care Provider Unavailable Encounter Details Date Type Department Care Team Description 03/03/2015 Telephone [facility] Pediatric Cordell Juarez MD Specialty Clinic [address] [facility] [place] [address] [place] [address] [phone] Social History Tobacco Use Types Packs/Day Years Used Date Smoking Tobacco: Never Comments: none at home Alcohol Use Standard Drinks/Week Comments Not Asked 0 (1 standard drink = 0.6 oz pure alcoho l) Sex Assigned at Date Recorded Male 03/09/2019 1:21 PM CDT documented as of this encounter Miscellaneous Notes Telephone Encounter - Delicia Izaguirre RN - 03/03/2015 12:44 PM CDT Mom called this am and said that Jude has had some chest pain off and on for the last two days. He has not been able to pinpoint if it is his lungs or if it seems like his heart. Mom requesting an appointment with Dr Juarez. Mom stated that she knows to take Jude to the [facility] ER if the pain doesn't go away. Mom stated that Jude was a little anxious and his heart rate was in the 90's yesterday. BP was 130/?. After he sat down and was calmed down, mom said that his BP came down and so did his heart rate. Spoke with Dr Juarez and she asked that we get him in at the next available appt. We had a cancel thisam and so made appointment for Jude to come to see Dr Juarez, next Saturday. Called Jaimie back and scheduled the appointment. Delicia Izaguirre RN documented in this encounter Plan of Treatment Upcoming Encounters Date Type Specialty Care Team Description 07/27/2022 Ancillary Procedure Cardiology Cordell Juarez MD [address] [place] [address] (Arleen valdes) 07/27/2022 Office Visit Cardiology Cordell Juarez MD [address] [place] [address] (Arleen valdes) documented as of this encounter Visit Diagnoses Not on filedocumented in this encounter
--- OUTSIDE RECORDS SUMMARY | 2022-04-10 10:01 | XMS_ITS | Encounter Summary ---
:2000 Author Organization [place] Address [address] [place] [address]. [place] [address] Care Team Providers Name Role Phone Unavailable Primary Care Provider Unavailable Encounter Details Date Type Department Care Team Description 05/15/2012 Orders Only [facility] Cordell Juarez, S/P Fontan procedure Pediatric Specialty (Primary Dx) Clinic [address] [place] [address] [place] [phone] Social History Tobacco Use Types Packs/Day Years [...] Ancillary Procedure Cardiology Cordell Juarez MD [address] [place], [place] [id number] [place] [address] (Wo rk) 07/27/2022 Office Visit Cardiology Cordell Juarez MD [address] [place] [address] [address] [place] [address] (Wo rk) documented as of this encounter Visit Diagnoses Diagnosis S/P Fontan procedure - Primary Other postprocedural status documented in this encounter
--- OUTSIDE RECORDS SUMMARY | 2022-04-10 10:01 | XMS_ITS | Encounter Summary ---
:2000 Author Organization [address] [place] [address] Care Team Providers Name Role Phone Unavailable Primary Care Provider Unavailable Reason for Visit Reason Onset Date Comments Clinic Care Coordination - Follow-up 12/10/2012 Encounter Details Date Type Department Care Team Description 12/10/2012 Telephone [facility] Cordell Juarez, [facility] Pediatric Specialty MD Coordination - Clinic [address] Follow-up [address] [facility] [address] [place] [phone] Social History Tobacco Use Types Packs/Day Years Used Date Smoking Tobacco: Never Comments: none at home Alcohol Use Standard Drinks/Week Comments Not Asked 0 (1 standard drink = 0.6 oz pure alcoho l) Sex Assigned at Date Recorded Male 03/09/2019 1:21 PM CDT documented as of this encounter Miscellaneous Notes Telephone Encounter - Delicia Izaguirre RN - 12/10/2012 4:21 PM CDT Mom called in and said that Jude was at baseball 2 weeks ago and had an episode where he became winded and had a rapid heart rate. Mom was not present at the baseball field. She stated that Jude was upset and so she is calling to get an appointment scheduled with Dr. Juarez as soon as possible. Mom stated that he had a physical today and his BP was 108/69 and heart rate was 81. She said that he is taking 4mg of Coumadin every day except for Saturday and he is on 2 mg of Coumadin. Spoke with Dr. Juarez and she stated that Jude should come and see her on January 07 for a follow up appointment. Appointment scheduled for Jude on that day at 2:45. Delicia Izaguirre RN documented in this encounter Plan of Treatment Upcoming Encounters Date Type Specialty Care Team Description 07/27/2022 Ancillary Procedure Cardiology Cordell Juarez MD [address] [place] [address] (Arleen valdes) 07/27/2022 Office Visit Cardiology Cordell Juarez MD [address] [place] [address] (Arleen valdes) documented as of this encounter Visit Diagnoses Not on filedocumented in this encounter
--- OUTSIDE RECORDS SUMMARY | 2022-04-10 10:01 | XMS_ITS | Encounter Summary ---
:2000 Author Organization [place] Address [address] [place] [address] Care Team Providers Name Role Phone Unavailable Primary Care Provider Unavailable Encounter Details Date Type Department Care Team Description 01/07/2013 Hospital Encounter [facility] LarryCordell blum MD [facility] [address] [facility] [address] [place] [address] [phone] Social History Tobacco Use Types Packs/Day Years Used Date Smoking Tobacco: Never Comments: none at home Alcohol Use Standard Drinks/Week Comments Not Asked 0 (1 standard drink = 0.6 oz pure alcoho l) Sex Assigned at Date Recorded Male 03/09/2019 1:21 PM CDT documented as of this encounter Medications at Time of Discharge Medication Sig Dispensed Refills Start Date End Date balsalazide (COLAZAL) 750 Take 2 capsules 60 capsule 5 01/0607/09/2013 MG capsuleIndications: by mouth daily. Colitis calcium carbonate (TUMS Take 1 tablet by 0 07/09/2013 SMOOTHIES) 750 MG CHEW mouth 2 times daily. [facility] F[facility]ER GUMMIES PO Take 1 tablet by 0 07/24/2013 mouth 2 times daily. dexmethylphenidate (FOCALIN Take 1 capsule by 30 capsule 0 1 08/12/2013 XR) 10 MG 24 hr mouth daily. capsuleIndications: ADHD (attention deficit hyperactivity disorder) lisinopril Take 1 tablet by 90 tablet 10 04/30/2012 05/18/20 13 (PRINIVIL,ZESTRIL) 10 MG mouth daily. tabletIndications: Hypoplastic left heart syndrome Loratadine (CLARITIN PO) Take 10 mg by 0 03/06/2017 mouth daily Reported on 09/14/2016 omeprazole (PRILOSEC) 20 MG Take 1 capsule by 30 capsule 5 0 01/06/2013 05/25/2013 capsuleIndications: History mouth daily. of gastritis warfarin (COUMADIN) 2 MG Take one tablet 90 tablet 4 201105/25/2013 tabletIndications: S/P every Saturday, Fontan procedure Saturday, Saturday and Saturday. warfarin (COUMADIN) 4 MG Take one tablet 90 tablet 2 201107/23/2014 tabletIndications: on Saturday and Hypoplastic left heart syndrome documented as of this encounter Plan of Treatment Upcoming Encounters Date Type Specialty Care Team Description 07/27/2022 Ancillary Procedure Cardiology Cordell Juarez MD [address] [place] [address] (Arleen valdes) 07/27/2022 Office Visit Cardiology Cordell Juarez MD [address] [place] [address] (Arleen rk) documented as of this encounter Visit Diagnoses Not on filedocumented in this encounter
--- OUTSIDE RECORDS SUMMARY | 2022-04-10 10:01 | XMS_ITS | Encounter Summary ---
:2000 Author Organization [place] Address [address] [place] [address]. [place] [address] Care Team Providers Name Role Phone Unavailable Primary Care Provider Unavailable Encounter Details Date Type Department Care Team Description 05/16/2012 Abstract [facility] Cordell Juarez MD HYPOPLASTIC LEFT HEART Pediatric Specialty [address] [place] [address] [place] (Primary Dx) Clinic [place] [address] [address] [place] [address] [place] [address] [place] [address] Social History Tobacco Use Types [...] Ancillary Procedure Cardiology Cordell Juarez MD [address] [place] [address] (Wo rk) 07/27/2022 Office Visit Cardiology Cordell Juarez MD [address] [place] [address] [address] [place] [address] (Wo rk) documented as of this encounter Procedures Procedure Name Priority Date/Time Associated Diagnosis Comme nts CBC WITH PLATELETS & Routine 05/13/2012 HYPOPLASTIC LEFT HEA RT Results for this DIFFERENTIAL SYND procedure are i n the results section. TSH Routine 05/13/2012 HYPOPLASTIC LEFT HEART Resul ts for this SYND procedure are i n the results section. INR Routine 05/13/2012 HYPOPLASTIC LEFT HEART Resul ts for this SYND procedure are i n the results section. COMPREHENSIVE METABOLIC Routine 05/13/2012 HYPOPLASTIC LEFT HEART Results for this PANEL SYND procedure are i n the results section. documented in this encounter Results CBC with platelets differential (05/13/2012) P athologist Signature WBC 6.20 10^9/L [facility] RBC Count 5.37 10^12/L [facility] Hemoglobin 14.7 11.7 - [facility] 15.7 gm/dL Hematocrit 43.5 % [facility] MCV 81 fl [facility] MCH 27 pg [facility] MCHC 34 g/dL [facility] RDW % [facility] Platelet Count 301 150 - 450 [facility] 10^9/L % Neutrophils 62.8 % MISYS % Lymphocytes 26.1 % MIS[facility] % Monocytes 9.5 % MISYS % Eosinophils 1.3 % MISYS % Basophils 0.3 % [facility] Neutrophils 3.89 x10E3/uL [facility] (Absolute) Lymphocyte 1.62 K/uL [facility] Absolute, Flow Monocytes(Absolu 0.59 x10E3/uL [facility] te) Eosinophil Count 0.09 /uL [facility] (Absolute) Other 0.02 % [facility] Comment: basophil absolute Specimen (Source) Anatomical Location Collection Method / Collectio n Time Received Time / Laterality Volume Blood specimen (specimen) Narrative This result has an attachment that is no t available. Cordell Juarez MD LAB - BLOOD ORDERABLES Performing Organization Address City/State/ZIP Code Phon e Number [facility] INR (05/13/2012) P athologist Signature PT Seconds [facility] INR 3.8 [facility] Specimen (Source) Anatomical Location Collection Method / Collectio n Time Received Time / Laterality Volume Blood specimen (specimen) Narrative This result has an attachment that is no t available. Cordell Juarez MD LAB - BLOOD ORDERABLES Performing Organization Address [facility] Phon e Number [facility] Comprehensive metabolic panel (05/13/2012) P athologist Signature Sodium 138 mmol/L [facility] Potassium 4.0 mmol/L [facility] Chloride 102 mmol/L [facility] CO2, TOTAL 25 mmol/L [facility] Anion Gap mmol/L [facility] Glucose 80 60 - 99 [facility] mg/dL Urea Nitrogen 24 mg/dL [facility] Creatinine 0.5 mg/dL [facility] Calcium 10.1 mg/dL [facility] Protein Total 8.3 g/dL [facility] Albumin 5.0 g/dL [facility] Bilirubin Total 0.5 mg/dL [facility] Alkaline 332 U/L [facility] Phosphatase AST 37 U/L [facility] ALT 32 U/L [facility] BNP 107 pg/mL [facility] Specimen (Source) Anatomical Location Collection Method / Collectio n Time Received Time / Laterality Volume Blood specimen (specimen) Narrative This result has an attachment that is no t available. Cordell Juarez MD LAB - BLOOD ORDERABLES Performing Organization Address [facility] Phon e Number [facility] TSH (05/13/2012) P athologist Signature TSH 2.440 mcU/mL [facility] Free T4 Index 1.42 [facility] (T7) Specimen (Source) Anatomical Location Collection Method / Collectio n Time Received Time / Laterality Volume Blood specimen (specimen) Narrative This result has an attachment that is no t available. Cordell Juarez MD LAB - BLOOD ORDERABLES Performing Organization Address [facility] Phon e Number MISYS documented in this encounter Visit Diagnoses Diagnosis 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
--- OUTSIDE RECORDS SUMMARY | 2022-04-10 10:01 | XMS_ITS | Encounter Summary ---
:2000 Author Organization [place] Address Pending sale to [facility] [place] [address] Care Team Providers Name Role Phone Unavailable Primary Care Provider Unavailable Reason for Visit Reason Onset Date Comments Refill Request 05/25/2013 Encounter Details Date Type Department Care Team Description 05/25/2013 Refill [facility] Pediatric Jay Andrews, Refill Request Specialty Clinic [facility] SBA BUSINESS DEVELOPMENT OFFICER DRILLING MANAGER [address] [place] [facility] [address] [place] [address] [place] [address] [phone] Social History Tobacco Use Types Packs/Day Years [...] Juarez MD [address] [facility] [address] [place] [address] (Wo rk) 07/27/2022 Office Visit Cardiology Larry, Cordell skelton MD [address] [place] [address] (Wo rk) documented as of this encounter Visit Diagnoses Diagnosis History of gastritis - Primary Personal history of other diseases of di gestive system documented in this encounter
--- OUTSIDE RECORDS SUMMARY | 2022-04-10 10:01 | XMS_ITS | Encounter Summary ---
:2000 Author Organization [address] [place] [address] Care Team Providers Name Role Phone Unavailable Primary Care Provider Unavailable Encounter Details Date Type Department Care Team Description 05/28/2012 Telephone [facility] Pediatric Larry Cordell MD Specialty Clinic [address] [facility] [place] [address] [facility] [place] [address] [phone] Social History Tobacco Use Types Packs/Day Years Used Date Smoking Tobacco: Never Comments: none at home Alcohol Use Standard Drinks/Week Comments Not Asked 0 (1 standard drink = 0.6 oz pure alcoho l) Sex Assigned at Date Recorded Male 03/09/2019 1:21 PM CDT documented as of this encounter Miscellaneous Notes Telephone Encounter - Delicia Izaguirre RN - 05/28/2012 3:58 PM CAT SCAN TECHNOLOGIST Reji Etienne,, so to recap- INR was 3.8 on 4 mg daily ( on 05/13/12) and now still 3.8 on 4 mg for 5 days and 2 mg for two days per week (on 05/22) . And clearly that???s too high for him given his bleeding(ouch and sorry). How about if we have you give him 2 mg tonight and every sat, sat, sat, and 4 mg on Saturday and . We should check an INR again in 2 weeks on this- sooner if he is bruising or bleeding. 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
--- OUTSIDE RECORDS SUMMARY | 2022-04-10 10:01 | XMS_ITS | Encounter Summary ---
:2000 Author Organization [place] Address [address] [place] [address] Care Team Providers Name Role Phone Unavailable Primary Care Provider Unavailable Reason for Visit Reason Onset Date Comments Anticoagulation 09/06/2011 Encounter Details Date Type Department Care Team Description 09/06/2011 Telephone [facility] Bayron Page , Anticoagulation Anticoagulation Clin ic [facility] [address] [place], [place] [phone] [facility] [phone] [place] [address] [address] [place] [address] (Wo rk) Social History Tobacco Use Types Packs/Day Years Used Date Smoking Tobacco: Never Comments: none at home Alcohol Use Standard Drinks/Week Comments Not Asked 0 (1 standard drink = 0.6 oz pure alcoho l) Sex Assigned at Date Recorded Male 03/09/2019 1:21 PM CDT documented as of this encounter Miscellaneous Notes Telephone Encounter - Bayron Page [facility] - 09/06/2011 1:30 PM CDT Jude is being inactivated from the [facility], Anticoagulation Monitoring Service. Letters have been sent to his home and on 08/15 I spoke with Jaimie and she said that Jude would have an INR done the week of 08/20. We have not seen any INRs And Jaimie has not contacted us. This note will be routed to Dr Cordell Juarez documented in this encounter Plan of Treatment Upcoming Encounters Date Type Specialty Care Team Description 07/27/2022 Ancillary Procedure Cardiology Cordell Juarez MD [address] [facility] [address] [place], [place] [address] (Wo rk) 07/27/2022 Office Visit Cardiology Cordell Juarez MD [address] [facility] [address] [place], [place] [address] (Wo rk) documented as of this encounter Visit Diagnoses Not on filedocumented in this encounter
--- OUTSIDE RECORDS SUMMARY | 2022-04-10 10:01 | XMS_ITS | Encounter Summary ---
:2000 Author Organization [place] Address [address] [facility] [place] [address] Care Team Providers Name Role Phone Unavailable Primary Care Provider Unavailable Reason for Referral Specialty Diagnoses / Procedures Referred By Contact Refer red To Contact Cordell Juarez M D [address] [facility] [address] [place], [place] [address] Referral ID Status Reason Start Date Expiration Date Visits Requ ested Visits Authorized Scheduling Instructions ANTICOAGULATION CLINIC COLLABORATIVE PRA CTICE AGREEMENT The following represents a collaborative practice agreement among the physicians of the Clinic and staff of the Anticoagulat ion Clinic Service ([facility]) Physicians shall: 1. Refer patients requiring anticoagulat ion to a specialty service staffed by personnel of Pharmacy Services and super vised by Clinic physicians. 2. Respond to questions and referrals fr pharmacy staff regarding delinquent or difficult patients. 3. Inform the [facility] staff when a new patie nt is to be started on the service in a timely manner including the indication f or warfarin therapy and any variation from the protocol. Anticoagulation service staff shall: 1. Conduct an education program for each patient. 2. Assess each patient for their ability to comply with therapy and their understanding of anticoagulation therapy . 3. Order all doses and dose changes base d on a mutually agreed protocol. 4. Schedule patients for follow-up labor atory and consultation visits. 5. Assess each patient's INR and provide appropriate direction. 6. At each visit, assess each patient fo r his or her risk of adverse or sub-therapeutic effects including at evy the following: Has the patient experienced any bleeding since the last INR Has the patient had any bacterial or vir al infections since the last INR Have any medications been added or maier ed or stopped since the last INR Has the patient had any symptoms of thro mboemboli since the last INR Has the patient had any dietary changes or changes in eating habits since the last INR Has the patient missed any warfarin/coum ferny doses since the last INR Has the patient had a fever since the la st INR Has the patient had unusual diarrhea sin ce the last INR 7. Prepare new prescriptions and authori ze refills for anticoagulants. 8. Serve as a resource to and answer que stions from patients and staff. 9. Identify delinquent patients and init iate appropriate steps to ensure adequate follow-up and monitoring. 10. Refer delinquent patients and other problem situations to a physician for direction. 11. Initiate vitamin K therapy when gary cated. Encounter Details Date Type Department Care Team Description 11/26/[address] [facility] Cordell Juarez Sing le ventricle, Pediatric Specialty heterotaxia syndrome Clinic [address] (Primary Dx) [address] [facility] [place] [phone] [phone] Social History Tobacco Use Types Packs/Day Years [...] Ancillary Procedure Cardiology Cordell Juarez MD [address] [place], [place] [address] [place] [address] (Wo rk) 07/27/2022 Office Visit Cardiology Cordell Juarez MD [address] [facility] [place] [address] (Wo rk) Scheduled Referrals Name Type Priority Associated Diagnoses Order S [facility] CLINIC REFERRAL Referral Routine Single ventricle, Ord ered: 11/26/2011 heterotaxia syndrome documented as of this encounter Procedures Procedure Name Priority Date/Time Associated Diagnosis [facility]me [facility]ts [facility] Routine 11/26/2011 11:29 AM Single ventricl e, MANAGEMENT CDT heterotaxia syndrome documented in this encounter Visit Diagnoses Diagnosis Single ventricle, 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
--- OUTSIDE RECORDS SUMMARY | 2022-04-10 10:01 | XMS_ITS | Encounter Summary ---
:2000 Author Organization [place] Address [address] [place] [address]. [place] [address] Care Team Providers Name Role Phone Unavailable Primary Care Provider Unavailable Encounter Details Date Type Department Care Team Description 04/30/2012 Results Only INTERFACED REPORT Unknown, Doctor, Social History Tobacco Use Types Packs/Day Years [...] Ancillary Procedure Cardiology Cordell Juarez MD [address] [place] [address] (Wo rk) 07/27/2022 Office Visit Cardiology Cordell Juarez MD [facility] [place], [place] [address] (Wo rk) documented as of this encounter Procedures Procedure Name Priority Date/Time Associated Diagnosis Comme nts EKG 12-LEAD, Routine 04/30/2012 11:06 AM Results for this TRACING ONLY CHIEF SECURITY OFFICER procedure are i n the results section. documented in this encounter Results EKG 12-lead, tracing only (04/30/2012 11:06 AM CHIEF SECURITY OFFICER) Component Value Ref Range Test Analysis Performed Pathologis t Method Time At Signature Ventricular Rate 80 BPM RADIOLOGY RESULTS Atrial Rate 80 BPM RADIOLOGY RESULTS OH Interval 136 ms RADIOLOGY RESULTS QRS Duration 82 ms RADIOLOGY RESULTS QT 366 ms RADIOLOGY RESULTS QTc 422 ms RADIOLOGY RESULTS P Jasper 51 degrees RADIOLOGY RESULTS R AXIS -86 degrees RADIOLOGY RESULTS T Jasper 62 degrees RADIOLOGY RESULTS Interpretation * RADIOLOGY ECG Pediatric ECG RESULTS Analysis * Interpretation Sinus rhythm RADIOLOGY ECG RESULTS Interpretation Left axis RADIOLOGY ECG deviation RESULTS Interpretation Right RADIOLOGY ECG ventricular RESULTS hypertrophy with strain pattern Specimen (Source) Anatomical Collection Method Collection Time Re ceived Time Location / / Volume Laterality 04/30/2012 11:06 AM CHIEF SECURITY OFFICER Doctor Unknown MD ECG ORDERABLES Performing Organization Address City/State/ZIP Code Phon e Number RADIOLOGY RESULTS documented in this encounter Visit Diagnoses Not on filedocumented in this encounter
--- OUTSIDE RECORDS SUMMARY | 2022-04-10 10:01 | XMS_ITS | Encounter Summary ---
:2000 Author Organization [place] Address [address] [place] [address]. [place] [address] Care Team Providers Name Role Phone Unavailable Primary Care Provider Unavailable Encounter Details Date Type Department Care Team Description 04/24/2012 Orders Only [facility] Cordell Juarez HYPO PLASTIC LEFT Pediatric Specialty HEART SYND (Primary Clinic [address] Dx) [address] [facility] [place] [id number] [phone] Social History Tobacco Use Types Packs/Day Years [...] 07/27/2022 Ancillary Procedure Cardiology Cordell Juarez MD [address] [place] [address] [address] [place] [address] (Wo rk) 07/27/2022 Office Visit Cardiology Cordell Juarez MD [address] [place] [address] [address] [place] [address] (Wo rk) documented as of this encounter Procedures Procedure Name Priority Date/Time Associated Diagnosis Comme nts INR Routine 04/24/2012 HYPOPLASTIC LEFT HEART Resul ts for this SYND procedure are i n the results section . documented in this encounter Results INR (04/24/2012) P athologist Signature PT Seconds MISYS INR 1.1 MISYS Specimen (Source) Anatomical Location Collection Method / Collectio n Time Received Time / Laterality Volume Blood specimen 04/24/2012 (specimen) Narrative This result has an attachment that is no t available. Cordell Juarez MD LAB - BLOOD ORDERABLES Performing Organization Address City/State/ZIP Code Phon e Number MISYS documented in this encounter Visit Diagnoses Diagnosis 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
--- OUTSIDE RECORDS SUMMARY | 2022-04-10 10:01 | XMS_ITS | Encounter Summary ---
:2000 Author Organization [place] Address [facility]0 [facility] [place] [address] Care Team Providers Name Role Phone Unavailable Primary Care Provider Unavailable Reason for Visit Reason Comments RECHECK Here for follow up for heart check Encounter Details Date Type Department Care Team Description 01/07/[address] [facility] LarryCordell, [facility] PLASTIC LEFT Pediatric Specialty HEART SYND (Primary Clinic [address] Dx) [address] [place] [phone] Social History Tobacco Use Types Packs/Day Years Used Date Smoking Tobacco: Never Comments: none at home Alcohol Use Standard Drinks/Week Comments Not Asked 0 (1 standard drink = 0.6 oz pure alcoho l) Sex Assigned at Date Recorded Male 03/09/2019 1:21 PM CDT documented as of this encounter Last Filed Vital Signs Vital Sign Reading Time Taken Comments Blood Pressure 110/64 01/07/2013 2:35 PM CDT Pulse 95 01/07/2013 2:35 PM CDT Temperature - - Respiratory Rate 20 01/07/2013 2:35 PM CDT Oxygen Saturation 95% 01/07/2013 2:35 PM CDT Inhaled Oxygen Concentration - - Weight 37.3 kg (82 lb 3.7 oz) 01/07/2013 2:35 PM CDT Height 145.3 cm (4' 9.21) 01/07/2013 2:35 PM CDT Body Mass Index 17.67 01/07/2013 2:35 PM CDT Body Mass Index Percentile 37.54 % 01/07/2013 2:35 PM CD T Growth Chart: [facility] (Boys, 2-20 Years) documented in this encounter Patient Instructions Patient InstructionsCordell Juarez MD - 01/07/2013 3:54 PM CDT You were seen today in the Pediatric Cardiology Clinic at [facility] Cardiology Providers you saw during your visit: Cordell Juarez MD Diagnosis: DORV with LV hypoplasia and d-TGA, PS; heterotaxy S/P Fontan with fensestration closed with Amplatzer device Results: Good function and mild AV valve regurgitation on echo (No change) . Normal sinus rhythm at 80 bpm on EKG. Borderline high BP 110/64 today, 107 yesterday on 10 mg lisinopril. Recommendations: Labs drawn including stool alpha 1 antitrypsin No change in meds Continue coumadin Goal INR 2-2.5 BP checks with clinic visits. RTC one year with echo and EKG. SBE prophylaxis: Yes__X_ No____ Exercise restrictions: Yes___ No_X_ If yes list restrictions: Must have access and be encouraged to drink fluids in warm weather and while exercising. Must rest if short of breath, fatigued, or heart racing, may then resume play. Work restrictions: Yes___ No_X_ If yes list restrictions: Follow-up: One year with EKG and Echo Thank you for your visit today. If you have questions about today's visit, please call our clinic [phone] For after hours urgent needs call [phone] and ask to speak to the Pediatric Cardiology Physician industrial technology education teacher. For emergencies call [phone]. documented in this encounter Progress Notes Cordell Juarez MD - 02/25/2013 6:57 AM CDT Pediatric Cardiology Visit Patient: Jude Bills Date of : 2000 Age: 12 year 11 month old Date of Visit: Jan 07, 2013 PCP: Deng Wallace MD Dear Deng Mata MD: I had the pleasure of seeing your patient, Jude Bills, in the Pediatric Cardiology Clinic at [facility] in [place] on Jan 07, 2013. 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 He underwent a central shunt, followed by a Fortino procedure and completion of a Fontan procedure at the [facility] in [place]. He had catheter closure of his Fontan fenestration at the [facility] in January 2007. Jude was last seen in clinic in April of 2012 and is here with his fatherfor a scheduled followup visit. 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 Jude is back on his coumadin after hiatus last year. Jude is entering the 7th grade at [employer] in [place]. He is an active child who played Spring and summer baseball. His father coaches the team and did note twoor three times where Jude was lightheaded or dizzy after extreme effort on hot days. One time it was severe enough that they almost took him to the ER, Jude had SOB with these episodes, but denies LOC, chest pain or irregular heart beat associated with the episodes and recovered with rest and hydration. He has not had any other new cardiac symptoms and is otherwise feeling well. He does occasionally have sharp chest pains not associated with activity, but has had these on and off in the past. He continues on his coumadi n, and gets INR's checked in [place] with a goal range of 2-2.5. He is on lisinopril 10 mg daily.Jude recently Seth Zoe for his colitis and she is considering weaning his medications. He is also on claritin for allergies. . He does not have any shortness of breath, renal abnormalities, clinical bleeding on Coumadin or other findings on review of systems. Other than the issues noted above, hehas been feeling quite well. FH/SH: Jude and his family Live in [place]. His mother is a nurse at [employer]. The kids are all changing schoold this year and have found a small school environment for Jude they think hewill thrive in. Current Outpatient Prescriptions Medication ??? Loratadine (CLARITIN PO) ??? balsalazide (COLAZAL) 750 MG capsule ??? omeprazole (PRILOSEC) 20 MG capsule ??? warfarin (COUMADIN) 2 MG tablet ??? warfarin (COUMADIN) 4 MG tablet ??? calcium carbonate (TUMS SMOOTHIES) 750 MG CHEW ??? lisinopril (PRINIVIL,ZESTRIL) 10 MG tablet ??? dexmethylphenidate (FOCALIN XR) 10 MG 24 hr capsule ??? [employer] FIBER GUMMIES PO His height is 1.453 m (4' 9.21) and weight is 37.3 kg (82 lb 3.7 oz). His blood pressure is 110/64 and his pulse is 95. His respiration is 20 and oxygen saturation is 95%. His body mass index is 17.67kg/(m^2). His body surface area is 1.23 meters squared. Growth percentiles are 14% for weight and 9%for height. In general, he is a very well-appearing young man with no central or peripheral cyanosisand head and neck examination is remarkable for a lower molar with some decay, for which dental workis scheduled. His lungs are clear to auscultation bilaterally. He has a well-healed midline sternotomy scar with a normal S1 and a single S2. He has a grade 2-3 systolic ejection murmur at the left upper sternal border, no rubs, gallops or diastolic murmurs. Abdominal examination is benign with no hepatosplenomegaly or masses. Femoral pulses are normal and extremities are warm and well perfused with no edema or clubbing and good capillary refill. A 12-lead ECG was obtained today which revealed normal sinus rhythm at a rate of 80 beats per minute, intervals are within normal limits. There is a northwest axis and right ventricular hypertrophy. Overall this is unchanged from prior ECG's. An echocardiogram was performed today and was interpreted as follows: Patient after Fontan completion for double outlet right ventricle, hypoplastic left ventricle, d-transposed great vessel and pulmonary stenosis. Had underwent trans catheter closure of the Fontan fenestration in 2006. No fenestration. No shunts seen. Single right ventricular systolic function is low normal. There is mild to moderate AV valve insufficiency with a Dp:Dt of 1212 msec. Fortino flow SVC and IVC flow appears laminar. No aortic insufficiency seen. Overall there was not a significant change from prior echocardiograms which were read as low normal RV function. Labs: Last Basic Metabolic Panel: NA 142 01/07/2013 POTASSIUM 3.9 01/07/2013 CHLORIDE 102 01/07/2013 GOYO 9.1 01/07/2013 CO2 26 01/07/2013 BUN 15 01/07/2013 CR 0.56 01/07/2013 GLC 82 01/07/2013 Alb 4.4 Nterm pro BNP 74 INR 2.25 IGG 1210 GI labs will be reported out by the GI team. CBC RESULTS: Recent Labs Lab Test 01/07/13 1630 WBC 3.7* RBC 5.16 HGB 14.3 HCT 42.8 MCV 83 MCH 27.7 MCHC 33.4 RDW 13.7 PLT 229 In summary, Jude is an almost 13 y/o with a history of a Fontan procedure for double outlet right ventricle, d-transposition, pulmonary stenosis and hypoplastic left ventricle. He has a history of malrotation of the intestine suggestive of a heterotaxy syndrome. His echocardiogram and exam are stable and his cardiac labs look excellent today. He has had two or three symptomatic episodes with strenuous exercise in heat- I discussed the importance of moderation in exercise, good hydration and resting when fatigued , as well as taking frequent breaks today with Jude and his dad, who is his head men's tennis coach. If these episodes persist we may want to consider further evaluation including exercise testing and a repeat Holter monitor. Jude also has blood pressures today at the top normal of our goal range and this will need to be monitored with routine visits during the year. At this time Jude needs no restrictions on his activities but should rest when fatigued and have access to fluids at all times. He should have regular dental cleanings with antibiotic prophylaxis for bacterial endocarditis one hour prior toeach visit twice yearly. We also discussed avoidance of smoking, alcohol and other drug use as he enters middle school. I would like to see Jude back in clinic in one year with an EKG and echocardiogram as well as lab work (CBC with diff, CMP, TFT's, INR, NT pro BNP, IGG, ATIII) at that visit). In the meantime if you , Jude or his parents have any questions or concerns about his health, Please do not hesitate to contact me or schedule an earlier visit. I thank you for allowing me to be a part of Jude's care team. Sincerely, Cordell Juarez M.D. Risk Developer of Pediatrics Division of Pediatric Cardiology [facility] documented in this encounter Nursing Notes 01/07/2013 2:45 PM CDT >> AICHA IZAGUIRRE Wed Jan 07, 2013 2:38 PM Informant- Jude is accomanplied by father Reason for Visit- Here for heart check up Vitals signs- BP 110/64 Pulse 95 Resp 20 Ht 1.453 m (4' 9.21) Wt 37.3 kg (82 lb 3.7 oz) BMI 17.67 kg/m2 SpO2 95% Face to Face time: 10 minutes Aicha Izaguirre RN documented in this encounter Plan of Treatment Upcoming Encounters Date Type Specialty Care Team Description 07/27/2022 Ancillary Procedure Cardiology Cordell Juarez MD [id number] [place] [address] (Wo lucio) 07/27/2022 Office Visit Cardiology Cordell Juarez MD [address] [place], [place] [address] (Wo lucio) documented as of this encounter Procedures Procedure Name Priority Date/Time Associated Diagnosis Comme nts [facility] ELECTROCARDIOGRAM REPORT, Routine 01/08/2013 HYPOPLASTI C LEFT HEART SUBSEQUENT - ED ONLY SYND documented in this encounter Results ELECTROCARDIOGRAM REPORT (01/08/2013) Narrative This result has an attachment that is no t available. 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
--- OUTSIDE RECORDS SUMMARY | 2022-04-10 10:01 | XMS_ITS | Encounter Summary ---
:2000 Author Organization [place] Address [facility] [place] [address] Care Team Providers Name Role Phone Unavailable Primary Care Provider Unavailable Encounter Details Date Type Department Care Team Description 07/22/2013 Orders Only [facility] Juliana Neal, SOB (shortness of Pediatric Specialty CHEMICAL TEST ENGINEER AIRCRAFT ENGINE SPECIALIST breath) (Primary Dx) Clinic [place] [address] [address] [place], [place] [id number] [place] [address] Social History Tobacco Use Types Packs/Day [...] 07/27/2022 Ancillary Procedure Cardiology Cordell Juarez MD [address] [place] [address] [phone] (Wo rk) 07/27/2022 Office Visit Cardiology Cordell Juarez MD [facility] [address] [address] (Wo rk) documented as of this encounter Visit Diagnoses Diagnosis SOB (shortness of breath) - Primary Shortness of breath documented in this encounter
--- OUTSIDE RECORDS SUMMARY | 2022-04-10 10:01 | XMS_ITS | Encounter Summary ---
:2000 Author Organization [place] Address [address] [place] [address] Care Team Providers Name Role Phone KomalStephen Primary Care Provider [facility] Primary Care Provider Magnus Zayas DO Primary Care Provider [phone] Magnus Zayas DO Unavailable [phone] Celeste Scales MD Unavailable Magnus Zayas DO Unavailable [phone] Magda Winchester MD Primary Care Provider Encounter Details Date Type Department Care Team Description 12/11/2012 Abstract [facility] Cordell Juarez MD HYPOPLASTIC LEFT HEART Pediatric Specialty [address] [facility] [place] (Primary Dx) [facility] [place] [address] [address] [place] [address] Social History Tobacco Use Types [...] Ancillary Procedure Cardiology Cordell Juarez MD [address] [place], [place] [phone] (Wo rk) 07/27/2022 Office Visit Cardiology Cordell Juarez MD [address] [place], [place] 4[address]14 (Wo rk) documented as of this encounter Procedures Procedure Name Priority Date/Time Associated Diagnosis Comme nts INR Routine 12/10/2012 HYPOPLASTIC LEFT HEART Resul ts for this SYND procedure are i n the results section . documented in this encounter Results INR (12/10/2012) P athologist Signature PT Seconds MISYS INR 2.1 MISYS Specimen (Source) Anatomical Location Collection Method / Collectio n Time Received Time / Laterality Volume Blood specimen (specimen) Cordell Juarez MD LAB - BLOOD ORDERABLES [...] documented as of this encounter Care Teams Correctional Cook Relationship Specialty Start Date End Date Stephen Sauceda PCP - General Pediatrics 03/06/17 06/24/19 [facility] [address] [place] [address] Ana Ervin Stowell PCP - General 06/25/19 02/22/[address] [place] [address], [place] [address] Magnus Zayas, PCP - General Student in organized 02/23/20 09/17/[address] education/training program [address] [place] [address] [phone] Magda Winchester PCP - General Family Medicine 09/18/21 [facility] Magnus Zayas, Assigned PCP 02/28/2004/[address] 212975 Celeste Scales MD Assigned PCP 11/10/20 11/19/[address] [place] [address] [phone] Magnus Zayas, Assigned PCP 11/20/[address] 388[address] documented as of this encounter
--- OUTSIDE RECORDS SUMMARY | 2022-04-10 10:01 | XMS_ITS | Encounter Summary ---
:2000 Author Organization [place] Address [address] [place] [address]. [place] [address] Care Team Providers Name Role Phone Unavailable Primary Care Provider Unavailable Encounter Details Date Type Department Care Team Description 01/07/2013 Orders Only [facility] Renea Fischer HYPOPLA STIC LEFT HEART SYND; Pediatric Specialty Colitis; [facility] [place] History of gastritis; [address] Hypoplas tic left heart [address] [place] [address] Social History Tobacco Use [...] Ancillary Procedure Cardiology Cordell Juarez MD [address] [place] [address] (Wo rk) 07/27/2022 Office Visit Cardiology Cordell Juarez MD [address] [place] 482407 [place], [place] [id number] (Wo rk) documented as of this encounter Procedures Procedure Name Priority Date/Time Associated Comments Diagnosis IGG Routine 01/07/2013 4:30 HYPOPLASTIC LEFT Results for this PM CDT HEART SYND procedure are i n the results section. CBC WITH PLATELETS & Routine 01/07/2013 4:30 Colitis Results for this DIFFERENTIAL PM CDT History of procedure are i n gastritis the results section. TSH WITH FREE T4 REFLEX Routine 01/07/2013 4:30 HYPOPLASTIC LE FT Results for this PM CDT HEART SYND procedure are i n the results section. TISSUE TRANSGLUTAMINASE Routine 01/07/2013 4:30 Colitis R esults for this MAGDI IGA AND IGG PM CDT procedure ar e in the results section. INR Routine 01/07/2013 4:30 HYPOPLASTIC LEFT Results for this PM CDT HEART SYND procedure are i n the results section. N TERMINAL PRO BNP Routine 01/07/2013 4:30 HYPOPLASTIC LEFT Re sults for this OUTPATIENT PM CDT HEART SYND procedure are i n the results section. IGA Routine 01/07/2013 4:30 Colitis Results for this PM CDT procedure are i n the results section. ERYTHROCYTE Routine 01/07/2013 4:30 Colitis Results for this SEDIMENTATION RATE AUTO PM CDT proc edure are in the results section. CRP INFLAMMATION Routine 01/07/2013 4:30 Colitis Results for this PM CDT procedure are i n the results section. COMPREHENSIVE METABOLIC Routine 01/07/2013 4:30 HYPOPLASTIC LE FT Results for this PANEL PM CDT HEART SYND procedure are i n the results section. ALPHA 1 ANTITRYPSIN Routine 01/06/2013 9:45 HYPOPLASTIC LEFT R esults for this STOOL PM CDT HEART SYND procedure are i n the results section. documented in this encounter Results (ABNORMAL) CBC with platelets differential (01/07/2013 4:30 PM CDT) [facility] Method Time Signature WBC 3.7 (L) 4.0 - [facility] 11.0 [facility] 10e9/L [facility] RBC Count 5.16 3.7 - 5.3 [facility] 10e12/L [facility] Hemoglobin 14.3 11.7 - [facility] 15.7 g/dL [facility] Hematocrit 42.8 35.0 - [facility] 47.0 % [facility] MCV 83 77 - 100 [facility] LAB MCH 27.7 26.5 - [facility] 33.0 pg [facility] MCHC 33.4 31.5 - [facility] 36.5 g/dL [facility] RDW 13.7 10.0 - [facility] 15.0 % [facility] Platelet Count 229 150 - 450 [facility] 10e9[facility] Diff Method Automated [facility] Method [facility] % Neutrophils 53.5 % [facility] % Lymphocytes 41.1 % [facility] % Monocytes 0.5 % [facility] % Eosinophils 4.1 % [facility] % Basophils 0.8 % [facility] % Immature 0.0 % [facility] Granulocytes [facility] Absolute 2.0 1.3 - 7.0 [facility] Neutrophil [address] [place] [address] LAB Absolute 1.5 1.0 - 5.[address] [facility] Lymphocytes [address] LAB Absolute 0.0 0.0 - 1.3 [facility] Monocytes 10e9[facility] Absolute 0.2 0.0 - 0.7 [facility] Eosinophils 10e9/[facility] Absolute 0.0 0.0 - 0.2 [facility] Basophils 10e9[facility] Abs Immature 0.0 0 - 0.4 [facility] Granulocytes [address] [place] [address] LAB Specimen Anatomical Collection Method Collection Time Receive d Time (Source) Location / / Volume Laterality Blood specimen 01/07/2013 4:30 PM 013 4:41 (specimen) CDT PM CDT Seth Andrews APRN OTR TRUCK DRIVER LAB - BLOOD ORDERABLE S Performing Organization Address City/State/ZIP Code Phon e Number M [facility] [address] [place], [place] [address] [facility] CRP inflammation (01/07/2013 4:30 PM CDT) P athologist Signature CRP Inflammation <5.0 0.0 - 8.0 [place] mg/L [facility] Specimen Anatomical Collection Method Collection Time Receive d Time (Source) Location / / Volume Laterality Blood specimen 01/07/2013 4:30 PM 013 4:41 (specimen) CDT PM CDT Seth Andrews APRN OTR TRUCK DRIVER LAB - BLOOD ORDERABLE S Performing Organization Address City/[facility]/ZIP Code Phon e Number [facility] [address], [place] [address] [facility] Erythrocyte sedimentation rate auto (01/07/2013 4:30 PM CDT) athologist Signature Sed Rate 5 0 - 15 mm/h [facility] Specimen Anatomical Collection Method Collection Time Receive d Time (Source) Location / / Volume Laterality Blood specimen 01/07/2013 4:30 PM 013 4:41 (specimen) CDT PM CDT Seth Andrews APRN OTR TRUCK DRIVER LAB - BLOOD ORDERABLE S Performing Organization Address City/[facility]/ZIP Code Phon e Number [facility] [address], [place] [address] [facility] Tissue transglutaminase magdi IgA and IgG (01/07/2013 4:30 PM CDT) [facility] gist Method Time Signature Tissue <1.0 U/mL [facility] Transglutaminase Interpretation: ??Negative [facility] Antibody IgA CAMPUS LABS Tissue 1.5 U/mL [facility] Transglutaminase Magdi [facility] Y IgG CAMPUS LABS Comment: Interpretation: Negative Specimen Anatomical Collection Method Collection Time Receive d Time (Source) Location / / Volume Laterality Blood specimen 01/07/2013 4:30 PM 013 4:41 (specimen) CDT PM CDT Seth Andrews APRN OTR TRUCK DRIVER LAB - BLOOD ORDERABLE S Performing Organization Address City/State/ZIP Code Phon e Number [facility] [address] [place] [address] [facility]IVERSITY CAMP[facility] LABS IgA (01/07/2013 4:30 PM CDT) P athologist Signature IGA 148 70 - 380 [facility]IVERSITY mg/dL CAMPUS LABS Specimen Anatomical Collection Method Collection Time Receive d Time (Source) Location / / Volume Laterality Blood specimen 01/07/2013 4:30 PM 013 4:41 (specimen) CDT PM CDT Seth Namnathaly Andrews APRN OTR TRUCK DRIVER LAB - BLOOD ORDERABLE S Performing Organization Address City/State/ZIP Code Phon e Number [address] [address] [facility]S Comprehensive metabolic panel (01/07/2013 4:30 PM CDT) [facility] Method Time Signature Sodium 142 133 - 143 [place] mmol/L [facility] Potassium 3.9 3.4 - 5.3 [place] mmol/L [facility] Chloride 102 98 - 110 [place] mmol/L [facility] Carbon Dioxide 26 20 - 32 [place] mmol/L [facility] Anion Gap 14 6 - 17 [place] mmol/L [facility] Glucose 82 60 - 99 [place] mg/dL [facility] Urea Nitrogen 15 5 - 24 [facility] mg/dL [facility] Creatinine 0.56 0.39 - [facility] 0.73 [facility] mg/dL [facility] GFR Estimate GFR not mL/min/1. [facility] calculated, 7m2 [facility] patient <16 HOSPITAL LAB years old. GFR Estimate If GFR not mL/min/1. [facility] Black calculated, 7m2 [facility] patient <16 HOSPITAL LAB years old. Calcium 9.1 8.7 - [facility] 10.8 [facility] mg/dL [facility] Bilirubin Total 0.8 0.2 - 1.3 [facility] mg/dL [facility] Albumin 4.4 3.9 - 5.1 [facility] g/dL [facility] Protein Total 7.3 6.8 - 8.8 [facility] g/dL [facility] Alkaline 448 130 - 530 [facility] Phosphatase U/L [facility] ALT 32 0 - 50 [facility] U/L [facility] AST 33 0 - 35 [facility] U/L [facility] Specimen Anatomical Collection Method Collection Time Receive d Time (Source) Location / / Volume Laterality Blood specimen 01/07/2013 4:30 PM 013 4:41 (specimen) CDT PM CDT Cordell Juarez MD LAB - BLOOD ORDERABLES Performing Organization Address City/State/ZIP Code Phon e Number [place] [address], [place] [address] [facility] N terminal pro BNP outpatient (01/07/2013 4:30 PM CDT) athologist [facility] N-Terminal Pro 74 0 - 240 [place] Bnp pg/mL [facility] Specimen Anatomical Collection Method Collection Time Receive d Time (Source) Location / / Volume Laterality Blood specimen 01/07/2013 4:30 PM 013 4:41 (specimen) CDT PM CDT Cordell Juarez MD LAB - BLOOD ORDERABLES Performing Organization Address City/State/ZIP Code Phon e Number [facility] [address], [place] [address] [facility] TSH with free T4 reflex (01/07/2013 4:30 PM CDT) athologist [facility] TSH 1.75 0.4 - 5.0 [facility]/L [facility] Specimen Anatomical Collection Method Collection Time Receive d Time (Source) Location / / Volume Laterality Blood specimen 01/07/2013 4:30 PM 013 4:41 (specimen) CDT PM CDT Cordell Juarez MD LAB - BLOOD ORDERABLES Performing Organization Address City/State/ZIP Code Phon e Number [facility] [address], [place] [address] [facility] IgG (01/07/2013 4:30 PM CDT) athologist Signature IGG 1,210 695 - 1,620 [facility] mg/dL CAMPUS LABS Specimen Anatomical Collection Method Collection Time Receive d Time (Source) Location / / Volume Laterality Blood specimen 01/07/2013 4:30 PM 013 4:41 (specimen) CDT PM CDT Cordell Juarez MD LAB - BLOOD ORDERABLES Performing Organization Address City/State/ZIP Code Phon e Number [facility] [address] [place] [address] [facility]S (ABNORMAL) INR (01/07/2013 4:30 PM CDT) athologist Signature INR 2.25 (H) 0.86 - 1.14 [facility] LAB Specimen Anatomical Collection Method Collection Time Receive d Time (Source) Location / / Volume Laterality Blood specimen 01/07/2013 4:30 PM 013 4:41 (specimen) CDT PM CDT Cordell Juarez MD LAB - BLOOD ORDERABLES Performing Organization Address City/[facility] Phon e Number M [facility] [address], [place] [address] [facility] Alpha 1 antitrypsin stool (01/06/2013 9:45 PM CDT) [facility] Method Time Signature Acuyj-7-Ybous <0.12 [facility] Stool Reference range: 0.00 to 0.62 [facility] Unit: mg/g HOSPITAL LAB (Note) Performed by [employer], [address] [place] [id number] [email or web address], Aden Camejo MD, Lab. Director Specimen Anatomical Collection Method Collection Time Receive d Time (Source) Location / / Volume Laterality Stool specimen 01/06/2013 9:45 PM 013 3:47 (specimen) CDT PM CDT Cordell Juarez MD LAB - STOOLS ORDERABLES Performing Organization Address City/[facility] Code Phon e Number [facility] [address], [place] [address] [facility] documented in this encounter Visit Diagnoses Diagnosis 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 Colitis Other and unspecified noninfectious tesha roenteritis and colitis History of gastritis Personal history of other diseases of di gestive system 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
--- OUTSIDE RECORDS SUMMARY | 2022-04-10 10:01 | XMS_ITS | Encounter Summary ---
:2000 Author Organization [place] Address [facility] [place] [address] Care Team Providers Name Role Phone Unavailable Primary Care Provider Unavailable Encounter Details Date Type Department Care Team Description 01/06/2013 Hospital Encounter [facility] Seth Andrews Co litis; [facility] JONATHAN Petit History of gastritis [address] [employer] [place], [place] [address] [facility] [address] [place] [address] [place], [place] [address] Social History Tobacco Use Types Packs/Day Years [...] 01/0607/09/2013 MG capsuleIndications: by mouth daily. Colitis balsalazide (COLAZAL) 750 Take 2 capsules 60 capsule 3 08/2201/07/2013 MG capsuleIndications: by mouth daily. Crohn's colitis (H) calcium carbonate (TUMS Take 1 tablet by [...] 05/25/2013 capsuleIndications: History mouth daily. of gastritis omeprazole (PRILOSEC) 20 MG Take 1 capsule by 90 capsule 3 1 06/30/2011 01/07/2013 capsuleIndications: mouth daily. Hypoplastic left heart syndrome warfarin (COUMADIN) 2 MG Take one [...] Ancillary Procedure Cardiology Cordell Juarez MD [address] [place], [place] [address]GISELLE MARINELLI [address] [place] [address] (Wo rk) 07/27/2022 Office Visit Cardiology Cordell Juarez MD [address] [facility] [address] [address] (Wo rk) documented as of this encounter Procedures Procedure Name Priority Date/Time Associated Comments Diagnosis EKG 12-LEAD, TRACING Routine 01/07/2013 2:37 PM R esults for this ONLY CDT procedure are i n the results section. OCCULT BLOOD STOOL Routine 01/06/2013 9:45 PM Res ults for this CDT procedure are i n the results section. [place] MISCELLANEOUS Routine 01/06/2013 9:45 PM Res ults for this TEST CDT procedure are i n the results section. documented in this encounter Results EKG 12-lead, tracing only (01/07/2013 2:37 PM CDT) [facility] Method Time Signature Interpretation ECG Click View RADIOLOGY Image link RESULTS to view waveform and result Specimen (Source) Anatomical Collection Method Collection Time Re ceived Time Location / / Volume Laterality 01/07/2013 2:37 PM CDT Doctor Unknown MD ECG ORDERABLES Performing Organization Address City/State/ZIP Code Phon e Number RADIOLOGY RESULTS [place] Miscellaneous Test (01/06/2013 9:45 PM CDT) [facility] Method Time Signature Result SEE NOTE [facility] (Note) [facility] Test name ?Result ?? Units ??RefIntl [facility] Calprotectin, Fecal ? 16 ? ug/g <=50 INTERPRETIVE INFORMATION: Calprotectin, Fecal 50 ug/g or less: Normal 51-120 ug/g: Borderline elevated, test should be re-evaluated in 4-6 weeks. 121 ug/g or greater: Abnormal, suggestive of inflammatory bowel disease (IBD). Performed by [employer], [address] [place] [phone] [email or web address], Aden Camejo MD, Lab. Director Test Name CALPROTECTIN [facility] Send Outs 92,303 [facility] LAB Send Outs Feces [facility] LAB Specimen Anatomical Collection Method Collection Time Receive d Time (Source) Location / / Volume Laterality 01/06/2013 9:45 PM 3 3:56 CDT PM CDT Seth Andrews APRN, CNP LAB - BLOOD ORDERABLE S Performing Organization Address City/State/ZIP Code Phon e Number M [facility] [address] [place], [place] [address] [facility] Occult blood stool (01/06/2013 9:45 PM CDT) P athologist Signature Occult Blood Negative NEG [facility] Specimen Anatomical Collection Method Collection Time Receive d Time (Source) Location / / Volume Laterality 01/06/2013 9:45 PM 3 3:47 CDT PM CDT Seth Andrews APRN, CNP LAB - STOOLS ORDERABL ES Performing Organization Address City/State/ZIP Code Phon e Number M [facility] [address] [place], [place] [address] [facility] documented in this encounter Visit Diagnoses Diagnosis Colitis Other and unspecified noninfectious tesha roenteritis and colitis History of gastritis Personal history of other diseases of di gestive system documented in this encounter
--- OUTSIDE RECORDS SUMMARY | 2022-04-10 10:01 | XMS_ITS | Encounter Summary ---
:2000 Author Organization [place] Address [address] [place] [address]. [place] [address] Care Team Providers Name Role Phone Unavailable Primary Care Provider Unavailable Reason for Visit Reason Comments RECHECK here for echo and ekg for fo llow up for heart check Encounter Details Date Type Department Care Team Description 04/30/2012 Office Visit [facility] Cordell Juarez HYPO PLASTIC LEFT HEART SYND (Primary Dx); Pediatric Specialty Hypoplastic left heart syndrome; Clinic [address] Encounter for long-term (cur rent) use of anticoagulants [address] [facility] [address] [place] [phone] Social History Tobacco Use Types Packs/Day Years Used Date Smoking Tobacco: Never Comments: none at home Alcohol Use Standard Drinks/Week Comments Not Asked 0 (1 standard drink = 0.6 oz pure alcoho l) Sex Assigned at Date Recorded Male 03/09/2019 1:21 PM CDT documented as of this encounter Last Filed Vital Signs Vital Sign Reading Time Taken Comments Blood Pressure 100/65 04/30/2012 11:01 AM right arm RESIDENT SERVICE COORDINATOR Pulse 94 04/30/2012 11:01 AM RESIDENT SERVICE COORDINATOR Temperature - - Respiratory Rate 20 04/30/2012 11:01 AM RESIDENT SERVICE COORDINATOR Oxygen Saturation 97% 04/30/2012 11:01 AM RESIDENT SERVICE COORDINATOR Inhaled Oxygen Concentration - - Weight 33.4 kg (73 lb 10.1 oz) 04/30/2012 11:01 AM RESIDENT SERVICE COORDINATOR Height 139.5 cm (4' 6.92) 04/30/2012 11:01 AM RESIDENT SERVICE COORDINATOR Body Mass Index 17.16 04/30/2012 11:01 AM RESIDENT SERVICE COORDINATOR Body Mass Index Percentile 36.01 % 04/30/2012 11:01 AM RESIDENT SERVICE COORDINATOR Growth Chart: [facility] (Boys, 2-20 Years) documented in this encounter Patient Instructions Patient InstructionsMaxine Sawyer MD - 04/30/2012 12:35 PM CST You were seen today in the Pediatric Cardiology Clinic at [facility] Cardiology Providers you saw during your visit: Cordell Juarez MD, Maxine Sawyer MD, MPH Diagnosis: Hypoplastic left heart syndrome, Colitis, non compliance with medications. Results: Echocardiogram- Mildly depressed single ventricle function (unchanged from before), mild AVvalve regurgitation (unchanged from before) Recommendations: Labs: CBC, CMP, TSH, T4, IgG, NT-Pro BNP, AT III SBE prophylaxis: Yes__X__ No____ Exercise restrictions: Yes___ No__X__ If yes list restrictions: Work restrictions: Yes___ No__X__ If yes list restrictions: Follow-up: In 6 months with an ECG and echocardiogram. May take lisinopril 10mg po qd, coumarin 4 mgpo qd and prilosec at bed time to improve compliance. Thank you for your visit today. If you have questions about today's visit, please call our clinic [phone] For after hours urgent needs call [phone] and ask to speak to the Pediatric Cardiology Physician production engine repairer. For emergencies call [phone]. DENT SERVICE COORDINATOR documented in this encounter Progress Notes Cordell Juarez MD - 05/01/2012 11:18 AM CST Pediatric Cardiology Visit Patient: Jude Bills Date of : 2000 Age: [age] year old 2 month old Date of Visit: Apr 30, 2012 PCP: Deng Wallace MD Dear Deng Mata MD: I had the pleasure of seeing your patient, Jude Bills, in the Pediatric Cardiology Clinic at [facility] in [place] on Apr 30, 2012. 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 He underwent a central shunt, followed by a Fortino procedure and completion of a Fontan procedure at the [facility] inearly childhood. He had catheter closure of his Fontan fenestration at the [facility] in January 2007. Jude was last seen in clinic in November 2010 and is here for a scheduled followup visit. 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 Jude's GI bleeding hasresolved and he has recently been started on Coumadin since aspirin was felt to be contributing to his colitis. Jude has been relatively asymptomatic from a cardiovascular standpoint. He denies any chest pain, irregular heart beat or other concerning cardiovascular symptoms. He has an ongoing evaluation by Dr. Dominga Ngo in Pediatric GI at the [facility] who is currently trying him off dairy products and following closely for blood in his stool. Jude's GI symptoms are primarily cyclical diarrhea and occasional blood-tinged stools associated with abdominal pain. He does not have any shortness of breath, renal abnormalities, clinical bleeding on Coumadin or other findings on review of systems.Other than his GI issues, he has been feeling quite well. His medications are Coumadin 5 mg 4 days a week and 2.5 mg 3 days a week, lisinopril 7.5 mg daily inthe morning, Focalin 10 mg for ADHD, omeprazole, Balsalazide, Pepto Bismol and Benefiber. I have referred him to the [facility] to maintain his INR between 2 to 2.5 and I would like to keep him in this range due to his clinically significant history of bleeding in the past. There is significant concern regarding his compliance with medications. Both parents think that he is not taking the medications including coumadin 50% of the time. When questioned about it Jude it sounds like Jude is overwhelmed with the number of medications he has to take over the course of the day and he wants to feel normal. Jude is currently in 6th grade and is in the honors program. He plays baseball without a problem. His height is 1.395 m (4' 6.92) and weight is 33.4 kg (73 lb 10.1 oz). His blood pressure is 100/65and his pulse is 94. His respiration is 20 and oxygen saturation is 97%. His body mass index is 17.16 kg/(m^2). His body surface area is 1.14 meters squared. Growth percentiles are 10% for weight and 7% for height. In general, he is a very well-appearing young man with no central or peripheral cyanosis and head and neck examination is remarkable for a lower molar with some decay, for which dental work is scheduled. His lungs are clear to auscultation bilaterally. He has a well-healed midline sternotomy scar with a normal S1 and a single S2. He has a grade 2-3 systolic ejection murmur at the left upper sternal border, no rubs, gallops or diastolic murmurs. Abdominal examination is benign with no hepatosplenomegaly or masses. Femoral pulses are normal and extremities are warm and well perfused withno edema or clubbing and good capillary refill. A 12-lead ECG was obtained today which revealed normal sinus rhythm at a rate of 80 beats per minute, intervals are within normal limits. There is left axis deviation and right ventricular hypertrophy.Overall this is unchanged from his ECG of November 2010. An echocardiogram was performed today and was interpreted as mildly reduced RV function and mild AV valve regurgitation with good flow in his Fontan circulation and no outflow tract obstruction. Overall there was not felt to be a significant change from prior echocardiograms which were read as low normal RV function. In summary, Jude is a 12 year old 2 month old with a history of a Fontan procedure for double outletright ventricle, d-transposition, pulmonary stenosis and hypoplastic left ventricle. He is doing well from a cardiovascular standpoint with no significant cardiovascular symptoms and good exercise ryan ance at this time. He remains very active. He has significant GI issues, including colitis and some GI bleeding. At this time I think it is unlikely that his cardiovascular status is contributing to his colitis, but at the time of one of his GI evaluations, I would like to get an abdominal ultrasound with mesenteric artery Doppler flows. These are abnormal in Fontan patients but may provide some clues to his GI circulation. I would like to get some lab tests this week on Jude which includes CBC, CMP, IgG, AT III, NT-Pro BNP and thyroid function tests. I will follow up on the results of these labs. I would like to see Jude back in clinic in 6 months for a brief re-evaluation with no tests at that time. Given his poor compliance with medication intake, I would like to change his coumarin to 4 mg po at bed time everyday, and lisinopril 10 mg po at bedtime. I also changed his prilosec to 20 mg po at bed time since he is not taking it frequently and he and his family thought this might improve compliance. I would like to see Jude back in the clinic in 6 months with an ECG and an echocardiogram at that time. I thank you for the opportunity to follow Jude with you. I hope will not hesitate to contact me if you have any questions or concerns about his cardiovascular status or my recommendations today. I look forward to seeing him back in 6 months with an ECG and echocardiogram. Sincerely, Maxine Sawyer M.D., M.P.H. Fellow, Pediatric Cardiology I have reviewed the clinical history, examined the patient, reviewed the relevant diagnostic studies, and discussed our findings and recommendations with the patient and/or family. I have reviewed and edited this note. Cordell Juarez M.D. [place] Inspector of Pediatrics Division of Pediatric Cardiology [facility] DENT SERVICE COORDINATOR documented in this encounter Nursing Notes 04/30/2012 11:00 AM CST >> DELICIA IZAGIURRE Wed Apr 30, 2012 11:04 AM Informant- Jude is accomanplied by father Reason for Visit- Here for echo and ekg and follow up for heart care Vitals signs- BP 100/65 Pulse 94 Resp 20 Ht 1.395 m (4' 6.92) Wt 33.4 kg (73 lb 10.1 oz) BMI 17.16 kg/m2 SpO2 97% Face to Face time: 5 minutes Delicia Izaguirre RN documented in this encounter Plan of Treatment Upcoming Encounters Date Type Specialty Care Team Description 07/27/2022 Ancillary Procedure Cardiology Cordell Juarez MD [address] [place] [address] (Wo rk) 07/27/2022 Office Visit Cardiology Cordell Juarez MD [address] [place], [place] [address] (Wo rk) documented as of this encounter Procedures Procedure Name Priority Date/Time Associated Comments Diagnosis ECHO PEDIATRIC COMPLETE Routine 04/30/2012 11:36 Results for this AM RESIDENT SERVICE COORDINATOR procedure are i n the results section. [facility] ELECTROCARDIOGRAM Routine 04/30/2012 HYPOPLASTIC LEFT REPORT, SUBSEQUENT - ED HEART SYND ONLY documented in this encounter Results Echo pediatric complete (04/30/2012 11:36 AM RESIDENT SERVICE COORDINATOR) Anatomical Region Laterality Modality Echocardiography Specimen (Source) Anatomical Collection Method Collection Time Re ceived Time Location / / Volume Laterality 04/30/2012 11:36 AM RESIDENT SERVICE COORDINATOR Impressions 05/01/2012 12:48 PM RESIDENT SERVICE COORDINATOR PEDIATRIC ECHOCARDIOGRAM ?? [facility] ? ?Echocardiogram Lab ? Age: 801/31/2000 ?Wt: ??33 .4 kg ?Ht: 139 cm ? BSA: 1.1 m2 ? BP: ??100/65 ? [employer] ? Crew Director: ??kb INDICATION: Fontan with device closed (fenestration) A cardiac ultrasound study based on an e xam which included: M-Mode ?2-D ? Doppler ? Color Flow CONCLUSION: ?Large anteri or muscular ventricular septal defect with some degree of hypoplasia of the left ventricular cavity. ?? There is no evidence of obstruction thro ugh the Fontan anastomosis. ?? Right ventricular function is at least m ildly diminished with 2+ tricuspid regurgitation, unchanged from the previous studies. ?? M-Mode Report ?Left Atrium ? mm ?Aortic Root ?mm ?LV end Diastolic ? mm ?LV end Systolic ? mm ?? Shortening Fraction ? % ?Intravent Septum ?mm ?LV Post Wall ?mm ? 1. ??ECG shows normal sinus rhythm with a rate of 85. ?? 2-Dimensional Report Recordings are performed from parasterna l, apical, subcostal and suprasternal notch windows. ??Anatomic r elationships are normal. ?? Aortic, mitral, and tricuspid valve sawyer ons are normal. ??A Fontan procedure has been performed. ??The syst emic venous return was demonstrated and is normal. The Fontan t unnel is visualized with no obvious areas of obstruction. ??The jorge a nary sinus is normal. Left atrial size is normal. Right atrial size is normal. ??There is right ventricular hypertrophy. ??Right ventric ular contractility is mildly diminished. ??There is a large anterior muscular ventricular septal defect, and the left ventricle appears s omewhat small. ??There is ahrs-zw-gtgxf ventricular hypertrophy. ? ?There is a large anterior muscular ventricular septal defect. ??Th e ventricular septum appears intact. There is no evidence of pericard ial effusion. The pulmonary artery bifurcation and aortic arch appea r normal. There is a left aortic arch with normal branching patter n. The left and right coronary arteries appear to originate no rmally from their corresponding aortic sinuses. ? Not Evaluated ?? Doppler Report Color flow and spectral Doppler are util ized. There is no mitral regurgitation. There is 2+ tricuspid reg urgitation with a calculated dp/dt of 1010 mmHg/sec. ??Normal flows a re recorded in the right ventricular outflow tract, main pulmonar y artery, left ventricular outflow tract, ascending aorta (0.8 m/se c) and in the descending thoracic (1.0 m/sec) and abdominal aorta . The peak velocity of flow through the inferior vena cava is 0.4 m/ sec with normal phasic variation. ??The peak velocity of flow i nto the left pulmonary artery is 0.6 m/sec. ??There is no evidence of a pusj-ny-htqfk shunt at atrial, ventricular or great artery leve ls. ? Artemio Silva MD-Pager [phone] ?? Gayathri Ayala MD-Pager [phone] ?? Jorge Link MD-Pager [phone] or [phone] Cordell Juarez MD-Pager [phone] ?? Jayson Bailey MD-Pager [phone] Vilma Rucker MD-Pager [phone] Constantine Herrera MD-Pager # [phone] Temo Mccord MD - Pager ??[phone] Cordell Juarez MD CV PEDS ECHO ORDERABLES ELECTROCARDIOGRAM REPORT (04/30/2012) Narrative This result has an attachment that is no t available. Cordell Juarez MD PROCEDURES documented in this encounter Visit Diagnoses Diagnosis HYPOPLASTIC LEFT HEART SYND - Primary Hypoplastic left heart syndrome long-term (current) use of anticoagulant s Long-term (current) use of anticoagulant s documented in this encounter
--- OUTSIDE RECORDS SUMMARY | 2022-04-10 10:01 | XMS_ITS | Encounter Summary ---
:2000 Author Organization [place] Address [facility] [place] [address] Care Team Providers Name Role Phone Unavailable Primary Care Provider Unavailable Encounter Details Date Type Department Care Team Description 02/29/2012 Orders Only [facility] Cordell Juarez Hypo plastic left Pediatric Specialty heart (Primary Dx) Clinic [address] [place] [address] [address] [place] [id number] [phone] Social History Tobacco Use Types Packs/Day Years [...] 07/27/2022 Ancillary Procedure Cardiology Cordell Juarez MD [address] [place], [place] [id number] [place] [address] (Wo rk) 07/27/2022 Office Visit Cardiology Cordell Juarez MD [address] [place], [place] [address] [place] [address] (Wo rk) documented as of this encounter Visit Diagnoses Diagnosis Hypoplastic left heart - Primary Hypoplastic left heart syndrome documented in this encounter
--- OUTSIDE RECORDS SUMMARY | 2022-04-10 10:01 | XMS_ITS | Encounter Summary ---
:2000 Author Organization [place] Address [facility] [place] [address] Care Team Providers Name Role Phone Unavailable Primary Care Provider Unavailable Encounter Details Date Type Department Care Team Description 04/24/2012 Orders Only [facility] Rajan Watkins Pediatric Specialty MD [place] ENCOUNTER--DISREGARD Clinic [place] [address] (Primary Dx) [address] [place] [id number] [phone] Social History Tobacco Use Types Packs/Day Years [...] 07/27/2022 Ancillary Procedure Cardiology Cordell Juarez MD [address] [place] [address] [address] [place] [address] (Wo rk) 07/27/2022 Office Visit Cardiology Cordell Juarez MD [address] [place] [address] [address] [place] [address] (Wo rk) documented as of this encounter Visit Diagnoses Diagnosis ERRONEOUS ENCOUNTER--DISREGARD - Primary documented in this encounter
--- OUTSIDE RECORDS SUMMARY | 2022-04-10 10:01 | XMS_ITS | Encounter Summary ---
:2000 Author Organization [place] Address [address] [place] [address]. [place] [address] Care Team Providers Name Role Phone Unavailable Primary Care Provider Unavailable Encounter Details Date Type Department Care Team Description 02/25/2012 Orders Only [facility] Cordell Juarez Sing le ventricle Pediatric Specialty (Primary Dx) Clinic [address] [facility] [address] [place] [phone] [phone] Social History Tobacco Use Types Packs/Day Years [...] 07/27/2022 Ancillary Procedure Cardiology Cordell Juarez MD [address] [place], [place] [address] [place] [address] (Wo rk) 07/27/2022 Office Visit Cardiology Cordell Juarez MD [address] [place] [address] [place] [address] (Wo rk) documented as of this encounter Visit Diagnoses Diagnosis 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
--- OUTSIDE RECORDS SUMMARY | 2022-04-10 10:01 | XMS_ITS | Encounter Summary ---
:2000 Author Organization [place] Address [facility] [place] [address] Care Team Providers Name Role Phone Unavailable Primary Care Provider Unavailable Encounter Details Date Type Department Care Team Description 05/25/2013 Orders Only [facility] Loly Jasso S/P Brenda an procedure (Primary Dx); [facility] Pediatric NADEEM Rowe History of gastritis [facility] [address] [place] [address] [address] [place] [phone] [phone] (Wo rk) Social History Tobacco Use Types [...] Procedure Cardiology Cordell Juarez MD [address] [facility] [address] [place] [address] (Wo rk) 07/27/2022 Office Visit Cardiology Cordell Juarez, MD [address] [place] [address] (Wo rk) documented as of this encounter Visit Diagnoses Diagnosis S/P Fontan procedure - Primary Other postprocedural status History of gastritis Personal history of other diseases of di gestive system documented in this encounter
--- OUTSIDE RECORDS SUMMARY | 2022-04-10 10:01 | XMS_ITS | Encounter Summary ---
:2000 Author Organization [place] Address [address] [place] [address]. [place] [address] Care Team Providers Name Role Phone Unavailable Primary Care Provider Unavailable Encounter Details Date Type Department Care Team Description 11/27/2012 Orders Only [facility] Cordell Juarez HYPO PLASTIC LEFT Pediatric Specialty HEART SYND (Primary Clinic [address] Dx) [address] [facility] [place] [phone] Social History Tobacco Use Types Packs/Day Years [...] Ancillary Procedure Cardiology Cordell Juarez MD [address] [place] [address] [address] [place] [address] (Wo rk) 07/27/2022 Office Visit Cardiology Cordell Juarez MD [address] [place] [address] [address] [place] [address] (Wo rk) documented as of this encounter Visit Diagnoses Diagnosis 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
--- OUTSIDE RECORDS SUMMARY | 2022-04-10 10:01 | XMS_ITS | Encounter Summary ---
:2000 Author Organization [address] [place] [address] Care Team Providers Name Role Phone Unavailable Primary Care Provider Unavailable Reason for Visit Reason Onset Date Comments Refill Request 02/15/2012 Encounter Details Date Type Department Care Team Description 02/15/2012 Refill [facility] Pediatric Cordell Juarez MD Refill Request Specialty Clinic [address] [place] [address] [facility] [address] [phone] Social History Tobacco Use Types Packs/Day Years Used Date Smoking Tobacco: Never Comments: none at home Alcohol Use Standard Drinks/Week Comments Not Asked 0 (1 standard drink = 0.6 oz pure alcoho l) Sex Assigned at Date Recorded Male 03/09/2019 1:21 PM CDT documented as of this encounter Miscellaneous Notes Telephone Encounter - Court Martin - 02/15/2012 10:54 AM CDT Per email from Dr. Juarez and Meena I called in a Rx to [facility] in [place]. Amoxicillin 500mg capsules with taking 3 one hour prior to dental cleaning, dispensing 12 with 2 refills. I then called ilia let her know that it was called in and she could pickling drum operator. documented in this encounter Plan of Treatment Upcoming Encounters Date Type Specialty Care Team Description 07/27/2022 Ancillary Procedure Cardiology Cordell Juarez MD [address] [facility] [place], [place] [address] (Wo rk) 07/27/2022 Office Visit Cardiology Cordell Juarez MD [address] [place], [place] [address] (Wo rk) documented as of this encounter Visit Diagnoses Not on filedocumented in this encounter
--- OUTSIDE RECORDS SUMMARY | 2022-04-10 10:01 | XMS_ITS | Encounter Summary ---
:2000 Author Organization [place] Address [address] [place] [address]. [place] [address] Care Team Providers Name Role Phone Unavailable Primary Care Provider Unavailable Encounter Details Date Type Department Care Team Description 05/13/2012 Orders Only [facility] Cordell Juarez HYPO PLASTIC LEFT Pediatric Specialty HEART SYND (Primary Clinic [address] Dx) [address] [facility] [place] [phone] Social History Tobacco Use Types Packs/Day Years [...] 07/27/2022 Ancillary Procedure Cardiology Cordell Juarez MD [address] [place] [address] [address] [place] [address] (Wo rk) 07/27/2022 Office Visit Cardiology Cordell Juarez MD [address] [place] [address] [address] [place] [address] (Wo rk) documented as of this encounter Procedures Procedure Name Priority Date/Time Associated Diagnosis Comme nts ANTITHROMBIN III Routine 05/13/2012 3:55 PM HYPOPLASTIC LEFT R esults for this TREE PULLER HEART SYND procedure are i n the results section. documented in this encounter Results Antithrombin III (05/13/2012 3:55 PM TREE PULLER) P athologist Signature Antithrombin MISYS Iii,Activity Anti-Thrombin 116 78 - 131 % MISYS III, Antigenic Specimen (Source) Anatomical Collection Method Collection Time Re ceived Time Location / / Volume Laterality Blood specimen 05/13/2012 3:55 PM (specimen) TREE PULLER Narrative This result has an attachment that is no t available. Cordell Juarez MD LAB - BLOOD ORDERABLES Performing Organization Address City/State/ZIP Code Phon e Number MISYS documented in this encounter Visit Diagnoses Diagnosis 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
--- OUTSIDE RECORDS SUMMARY | 2022-04-10 10:01 | XMS_ITS | Encounter Summary ---
:2000 Author Organization [address] [place] [address] Care Team Providers Name Role Phone Unavailable Primary Care Provider Unavailable Reason for Visit Reason Onset Date Comments Refill Request 05/18/2013 Encounter Details Date Type Department Care Team Description 05/18/2013 Refill [facility] Pediatric Larry , Cordell Barajas MD Refill Request Specialty Clinic [address] [address] [place] [address] [facility] [place] [address] [phone] Social History Tobacco Use Types Packs/Day Years Used Date Smoking Tobacco: Never Comments: none at home Alcohol Use Standard Drinks/Week Comments Not Asked 0 (1 standard drink = 0.6 oz pure alcoho l) Sex Assigned at Date Recorded Male 03/09/2019 1:21 PM CDT documented as of this encounter Miscellaneous Notes Telephone Encounter - Delicia Izaguirre RN - 05/18/2013 1:41 PM METROLOGY TECHNICIAN Cordell Received a refill request from [employer]. Delicia Baum RN OLOGY TECHNICIAN documented in this encounter Plan of Treatment Upcoming Encounters Date Type Specialty Care Team Description 07/27/2022 Ancillary Procedure Cardiology Cordell Juarez MD [address] [place] [address] (Wo rk) 07/27/2022 Office Visit Cardiology Cordell Juarez MD [address] [place] [address] (Wo rk) documented as of this encounter Visit Diagnoses Diagnosis 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
--- OUTSIDE RECORDS SUMMARY | 2022-04-10 10:01 | XMS_ITS | Encounter Summary ---
:2000 Author Organization [place] Address Replaced by [facility] [place] [address] Care Team Providers Name Role Phone Unavailable Primary Care Provider Unavailable Reason for Visit Reason Onset Date Comments Refill Request 05/18/2013 Encounter Details Date Type Department Care Team Description 05/18/2013 Refill [facility] Pediatric Jay Andrews, Refill Request Specialty Clinic [facility] SUPERVISOR FILES KNOCKDOWN WORKER [address] [place] [facility] [address] [place] [address] [place] [address] [phone] Social History Tobacco Use Types Packs/Day Years Used Date Smoking Tobacco: Never Comments: none at home Alcohol Use Standard Drinks/Week Comments Not Asked 0 (1 standard drink = 0.6 oz pure alcoho l) Sex Assigned at Date Recorded Male 03/09/2019 1:21 PM CDT documented as of this encounter Miscellaneous Notes Telephone Encounter - Court Martin - 05/18/2013 2:59 PM CST Spoke with mom to verify they were still continuing on the omeprazole, and she confirmed O ENGINEER documented in this encounter Plan of Treatment Upcoming Encounters Date Type Specialty Care Team Description 07/27/2022 Ancillary Procedure Cardiology Cordell Juarez MD [address] [place], [place] [id number] (Wo rk) 07/27/2022 Office Visit Cardiology Cordell Juarez MD [address] [place], [place] [address] (Wo rk) documented as of this encounter Visit Diagnoses Diagnosis History of gastritis - Primary Personal history of other diseases of di gestive system documented in this encounter
--- OUTSIDE RECORDS SUMMARY | 2022-04-10 10:01 | XMS_ITS | Encounter Summary ---
:2000 Author Organization [place] Address [address] [place] [address]. [place] [address] Care Team Providers Name Role Phone Unavailable Primary Care Provider Unavailable Encounter Details Date Type Department Care Team Description 08/22/2012 Orders Only [facility] Cordell Juarez Croh n's colitis (H) Pediatric Specialty (Primary Dx) Clinic [address] [place] [address] [address] [place] [id number] [phone] Social History Tobacco Use Types Packs/Day Years [...] 07/27/2022 Ancillary Procedure Cardiology Cordell Juarez MD [address] [place], [place] [id number] [place] [address] (Wo rk) 07/27/2022 Office Visit Cardiology Cordell Juarez MD [address] [facility] [address] [place] [address] (Wo rk) documented as of this encounter Visit Diagnoses Diagnosis Crohn's colitis (H) - Primary Regional enteritis of large intestine documented in this encounter
--- OUTSIDE RECORDS SUMMARY | 2022-04-10 10:01 | XMS_ITS | Encounter Summary ---
:2000 Author Organization [place] Address [facility] [place] [address] Care Team Providers Name Role Phone Unavailable Primary Care Provider Unavailable Encounter Details Date Type Department Care Team Description 01/07/2013 Results Only [facility] Rudy Juarez MD Hospital Results [address] [place], [place] [address] (Wo rk) Social History Tobacco Use Types [...] Ancillary Procedure Cardiology Cordell Juarez MD [address] [place] [id number] (Wo rk) 07/27/2022 Office Visit Cardiology Cordell Juarez MD [address] [place] [phone] (Wo rk) documented as of this encounter Procedures Procedure Name Priority Date/Time Associated Diagnosis Comme nts ECHO PEDIATRIC 01/07/2013 3:21 PM Results for this COMPLETE CDT procedure are i n the results section. documented in this encounter Results Echo pediatric complete (01/07/2013 3:21 PM CDT) Anatomical Region Laterality Modality Echocardiography Specimen (Source) Anatomical Collection Method Collection Time Re ceived Time Location / / Volume Laterality 01/07/2013 3:21 PM CDT Narrative 01/08/2013 4:05 PM CDT PEDIATRIC ECHOCARDIOGRAM ?? [facility] ? ?Echocardiogram Lab ? Age: ??1 ? Wt: ? Ht: ? BSA: ?BP: ? Xcelera ? 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 Had undergone initially a centra l shunt followed by Fortino and a Fontan at [facility]. Fontan fenestra tion was closed in 2006. A cardiac ultrasound study based on an e xam which included: M-Mode ?2-D ? Doppler ? Color Flow CONCLUSION: ?Patient afte r Fontan completion for double outlet right ventricle, hypoplastic left ventricle, d-transposed great vessel and pulmonary stenosis. Had underwent trans catheter closure of the Fontan fenestration in 03 01. No fenestration. No shunts seen. Single right ventricular sy stolic function is low normal. There is mild to moderate AV cary ve insufficiency with a Dp:Dt of 1212 msec. Fortino flow SVC and IVC nell w appears laminar. ??No aortic insufficiency seen. ? 2-Dimensional Report Recordings are performed from parasterna l, apical, subcostal and suprasternal notch windows. Patient with a history of double outlet right ventricle, left ventricular hypopl jose f, d-transposed great vessels and pulmonary stenosis. Had unde rgone initially a central shunt followed by Fortino procedure and Fo ntan completion at [facility]. Had underwent Fontan fenestratio n closure in 2006. Single AV valve motion appears to be normal. The s ystemic venous return was demonstrated to the Fontan. No evidence of fenestration seen. Left atrial size is normal. Right atrial size is normal. The right ventricular systolic function is low nor mal. Has hypoplastic left ventricle. Large ventricular septal defe ct is seen. There is no evidence of pericardial effusion. Good s ized branch pulmonary arteries. Aortic arch is unobstructed. ? Doppler Report Color flow and spectral Doppler are util ized. There is mild to moderate AV valve insufficiency seen wit h a Dp:Dt of 1212 msec. No aortic insufficiency. Antegrade aortic f low is 0.6 m/sec. Arch is unobstructed. Descending aortic peak dhruv ocity is 1 m/sec. The SVC flow to the Fortino as well as the Fontan flow to the PA's were well demonstrated with laminar flow at 0.3 m/ sec. Flow across the branch pulmonary arteries were also seen with a peak velocity of 0.4 m/sec. ?? Artemio Silva MD-Pager [phone] ?? aGyathri Ayala MD-Pager [phone] ?? Jorge Link MD-Pager [phone] or Cordell Juarez MD-Pager [phone] ?? Jayson Bailey MD-Pager [phone] Vilma Rucker MD-Pager [phone] Constantine Herrera MD-Pager # [phone] Temo Mccord MD - Pager ?? Procedure Note Aga Rucker MD - 01/08/2013Form atting of this note might be different from the original. 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 Had undergone initially a centra l shunt followed by Fortino and a Fontan at [facility]. Fontan fenestra tion was closed in 2006. A cardiac ultrasound study based on an e xam which included: M-Mode 2-D Doppler Color Flow CONCLUSION: Patient after Rory martinez completion for double outlet right ventricle, hypoplastic left ventricle, d-transposed great vessel and pulmonary stenosis. Had underwent trans catheter closure of the Fontan fenestration in 03 01. No fenestration. No shunts seen. Single right ventricular sy stolic function is low normal. There is mild to moderate AV cary ve insufficiency with a Dp:Dt of 1212 msec. Fortino flow SVC and IVC nell w appears laminar. No aortic insufficiency seen. 2-Dimensional Report Recordings are performed from parasterna l, apical, subcostal and suprasternal notch windows. Patient with a history of double outlet right ventricle, left ventricular hypopl jose f, d-transposed great vessels and pulmonary stenosis. Had unde rgone initially a central shunt followed by Fortino procedure and Fo ntan completion at [facility]. Had underwent Fontan fenestratio n closure in 2006. Single AV valve motion appears to be normal. The s ystemic venous return was demonstrated to the Fontan. No evidence of fenestration seen. Left atrial size is normal. Right atrial size is normal. The right ventricular systolic function is low nor mal. Has hypoplastic left ventricle. Large ventricular septal defe ct is seen. There is no evidence of pericardial effusion. Good s ized branch pulmonary arteries. Aortic arch is unobstructed. Doppler Report Color flow and spectral Doppler are util ized. There is mild to moderate AV valve insufficiency seen wit h a Dp:Dt of 1212 msec. No aortic insufficiency. Antegrade aortic f low is 0.6 m/sec. Arch is unobstructed. Descending aortic peak dhruv ocity is 1 m/sec. The SVC flow to the Fortino as well as the Fontan flow to the PA's were well demonstrated with laminar flow at 0.3 m/ sec. Flow across the branch pulmonary arteries were also seen with a peak velocity of 0.4 m/sec. Artemio Silva MD-Pager [phone] Gayathri Ayala MD-Pager [phone] Jorge Link MD-Pager [phone] or Cordell Juarez MD-Pager [phone] Jayson Bailey MD-Pager [phone] Vilma Rucker MD-Pager [phone] Constantine Herrera MD-Pager # [phone] Temo Mccord MD - Pager [phone] 2 Cordell Juarez MD CV PEDS ECHO ORDERABLES documented in this encounter Visit Diagnoses Not on filedocumented in this encounter
--- OUTSIDE RECORDS SUMMARY | 2022-04-10 10:01 | XMS_ITS | Encounter Summary ---
:2000 Author Organization [place] Address [address] [place] [address]. [place] [address] Care Team Providers Name Role Phone Unavailable Primary Care Provider Unavailable Encounter Details Date Type Department Care Team Description 05/16/2012 Abstract [facility] Cordell Juarez MD HYPOPLASTIC LEFT HEART Pediatric Specialty [address] [place] [address] [place] (Primary Dx) Clinic [place] [address] [address] [place] [address] [place] [address] [place] [address] Social History Tobacco Use Types [...] 07/27/2022 Ancillary Procedure Cardiology Cordell Juarez MD [address] [place] [id number] (Wo rk) 07/27/2022 Office Visit Cardiology Cordell Juarez MD [address] [place] [address] [address] [place] [address] (Wo rk) documented as of this encounter Procedures Procedure Name Priority Date/Time Associated Diagnosis Comme nts IGG Routine 04/30/2012 HYPOPLASTIC LEFT HEART Resul ts for this SYND procedure are i n the results section . documented in this encounter Results IgG (04/30/2012) P athologist Signature IGG 1,290 mg/dL MISYS Specimen (Source) Anatomical Location Collection Method [...]
--- OUTSIDE RECORDS SUMMARY | 2022-04-10 10:01 | XMS_ITS | Encounter Summary ---
:2000 Author Organization [place] Address [address] [place] [address] Care Team Providers Name Role Phone Unavailable Primary Care Provider Unavailable Reason for Visit Reason Comments Consult Hypoplastic left heart syndr ome, previous pneumonia & still having SOB Encounter Details Date Type Department Care Team Description 07/24/2013 Office Visit [facility] Demirel, Mike, SOB ( [facility] [place] breath) (Primary Dx) Specialty Clinic [address] [place], [place] [address] [address], [address]rd Fl[address] [address] [phone] [place], [place] (Fax) [address] Social History Tobacco Use Types Packs/Day Years Used Date Smoking Tobacco: Never Comments: none at home Alcohol Use Standard Drinks/Week Comments Not Asked 0 (1 standard drink = 0.6 oz pure alcoho l) Sex Assigned at Date Recorded Male 03/09/2019 1:21 PM CDT documented as of this encounter Last Filed Vital Signs Vital Sign Reading Time Taken Comments Blood Pressure 111/70 07/24/2013 11:10 AM THERAPEUTIC RADIOLOGIST Pulse 82 07/24/2013 11:10 AM THERAPEUTIC RADIOLOGIST Temperature 36.9 ??C (98.5 ??F) 07/24/2013 11:10 AM THERAPEUTIC RADIOLOGIST Respiratory Rate 20 07/24/2013 11:10 AM THERAPEUTIC RADIOLOGIST Oxygen Saturation 98% 07/24/2013 11:10 AM THERAPEUTIC RADIOLOGIST Inhaled Oxygen Concentration - - Weight 39.9 kg (87 lb 15.4 oz) 07/24/2013 11:10 AM THERAPEUTIC RADIOLOGIST Height 150 cm (4' 11.06) 07/24/2013 11:10 AM THERAPEUTIC RADIOLOGIST Body Mass Index 17.73 07/24/2013 11:10 AM THERAPEUTIC RADIOLOGIST Body Mass Index Percentile 32.60 % 07/24/2013 11:[address] Growth Chart: [facility] (Boys, 2-20 Years) documented in this encounter Patient Instructions Patient InstructionsCecilia Garcia RN - 07/24/2013 11:56 AM CST Follow up in 3 weeks. Please call with any questions or concerns: [phone]. Thanks! APEUTIC RADIOLOGIST documented in this encounter Progress Notes Mike Patrick MD - 07/24/2013 4:48 PM CST Pediatric Pulmonology Initial Visit Note 07/24/2013 Jude Bills : 2000 MR: [id number] Referring Physician: Deng Wallace MD Dear Dr. Wallace: We had the pleasure of seeing Jude today at our pediatric pulmonology clinic for an initial evaluation. He is acompanied by her mother. 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 He underwent a central shunt, followed by a Fortino procedure and completion of a Fontan procedure at the [facility] in [place]. He had catheter closure of his Fontan fenestration at the [facility] in January 2007. According to his adopting mother Jude has no historyof any respiratory disease other recurrent wheezing first few years of life. He presented to the ED 2 weeks ago with mild cough and headache. He was diagnosed with pneumonia based on radiologic findings of RLL opacities. He had mild fever. He was treated with 6-ner-kgioie of azithromycin. His mother states that Jude has developed urticaria at the ER and since has had hives every other day. He was treated claritine with some success. He has still been coughing intermittently. He sleeps well with no nocturnal cough. His mother states that Jude has lost his appetite for few days, but now is eating well. He complains of some fatigue but has been pretty active. His mother reports that Jude has constantsnoring but no apnea noted. Past Medical History: Jude has never been hospitalized for respiratory issues, no [place]. [place] [id number] and was adopted at 2-year-old. His mother states that he had recurrent wheezing in the first 6 months but he has never get sick after that. He had urticaria early in life but not in the last 5-6 years. He had no significant history of recurrent otitides. He has no eczema. He has history of colitis and recurrent bloody diarrhea but currently well controlled under current treatment. He does have h/o reflux and still on PPI. Jude had had episodes of hemorrhagic diathesis but work up was negative per mom. Family History: No information regarding biologic family has gathered. Immunizations : Up to date including seasonal influenza. Medications: Claritine, Balsalazide (5-Aminosalicylic acid derivative), Lisinopril, omeprazole, warfarin, Focalin. Allergies: NKDA Social/Environmental History: He lives with parents and siblings. No smokers at home, multiple dogs,and poultry, there is wall to wall carpeting in bedrooms only, no obvious mold. Review of Systems: Constitutional: No fever. HEENT: Negative for congestion, rhinorrhea, negative for ear pain, no eye redness or discharge or neck pain. Respiratory: Mild dry cough. Cardiovascular: No palpitations, no chest pain. Gastrointestinal: No abdominal pain Genitourinary: Negative. Musculoskeletal: Negative for joint swelling and arthralgias. Skin: Positive for urticarial rash Neurological: No seizures, h/o recent headaches. Hematological: Negative for adenopathy. He has a h/o bruise/bleed easily. Psychiatric/Behavioral: Positive for ADHD, negative for sleep disturbance. Physical Exam: Vital Signs: T 36.9 HR 82 RR 20 BP 111/70, SpO2 98% on RA Weight: 39.9kg (15%), Ht 160cm (11%) He is a quiet and cooperative youngster with no distress or discomfort. Normal Abnormal Head/eyes X Normocephalic / non jaundiced conjunctiva HEENT X Supple, no enlarged lymph nodes were palpated, TM clear, no nasal discharge or congestion Chest/Lung X No chest deformity. Good bilateral air entry, no intercostal retractions, no crackles or wheezing Heart X Normal S1,S2, normal rhythm, 2/6 FAIZAN Abdomen X Soft, non distended, non tender, no hepatosplenomegaly Skin X Facial urticarial mild rashes, midsternal and abdominal well healed scars Lymphatics X Non edematous Extremities X Warm, well-perfused, no clubbing Musculoskeletal X Free ROM, no joint swelling Neuro-Psych X Grossly normal, none focal, good tone Laboratory Data: Spirometry: FVC 2.61L, 86% of predicted, FEV1 2.39L, 88% of predicted, FEV1/FVC 92%, FEF25- 75 2.77L/sec, 88% Interpretation: This is a first time attempt with fair technique. Expiratory phase is ~2 seconds andpeak expiratory flow is not reached. Flow volume curve shows interruptions. Results within normal range but should be assessed with caution due to technically limited study. No previous results to compare. Radiologic Data: CXR from 07/09/13 shows RML opacities suggestive of pneumonic infiltration. Right costofrenic sinus is blunted. LLL dense opacity suggestive of atelectasis. 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 He was recently seen by cardiology in February 2013, and has been found stable. He presents today too clinic with a recent diagnosis of pneumonia 2 weeks ago in the setting of mild fever and cough. He has had recurrent episodes of urticaria in the last 2 weeks. His mother reports malaise and mild exercise intolerance. Jude's lung examination is reassuring, today. We think he may have an atypical pneumonia, most probably due to Mycoplasma pneumonia. M. pneumonia infections are frequently associated with urticarial rash. He already received 4-puu-ctcsxv of azithromycin. We recommended Jude to be seen by allergy&immunology. We also recommended Luke to be seen by cardiology. We requested a follow up in 3 weeks with repeat CXR. We told parents that we will consider further evaluation in case of persistent abnormal radiologic findings. Thank you for allowing us to participate in the care of this pleasant family. Please do not hesitateto contact should any questions or concerns arise. Sincerely, Mike Patrick MD Pediatric Pulmonology [facility] Pager: [phone] Email: [email or web address] APEUTIC RADIOLOGIST documented in this encounter Nursing Notes 07/24/2013 1:10 PM CST >> CECILIA GARCIA RN SatJul 24, 2013 12:18 PM Introduced self and role to patient and parents. Reviewed after visit summary and gave copy to the family. No questions at this time. Gave nurse contact number in case of any future questions. Will continue to follow up as needed. >> Maddie Hermosillo LPN SatJul 24, 2013 11:11 AM Patient presents with: Consult - Hypoplastic left heart syndrome, previous pneumonia & still having SOB Initial BP 111/70 Pulse 82 Temp 98.5 ??F (36.9 ??C) (Oral) Resp 20 Ht 4' 11.06 (150 cm) Wt 87 lb 15.4 oz (39.9 kg) BMI 17.73 kg/m2 SpO2 98% Estimated Body mass index is 17.73 kg/(m^2) ascalculated from the following: Height as of this encounter: 4' 11.055(1.5 m). Weight as of this encounter: 87 lb 15.4 oz(39.9 kg). BP completed using cuff size: small regular documented in this encounter Plan of Treatment Upcoming Encounters Date Type Specialty Care Team Description 07/27/2022 Ancillary Procedure Cardiology Cordell Juarez MD [address] [facility] [place], [place] [id number] (Arleen valdes) 07/27/2022 Office Visit Cardiology Cordell Juarez MD [address] [facility] [address] [place], [place] [address] (Arleen valdes) documented as of this encounter Procedures Procedure Name Priority Date/Time Associated Diagnosis Comme nts PFT GENERAL LAB Routine 07/24/2013 10:47 AM SOB (shortness of Results for this TESTING THERAPEUTIC RADIOLOGIST breath) procedure are i n the results section. documented in this encounter Results Pulmonary function test procedure (07/24/2013 10:47 AM THERAPEUTIC RADIOLOGIST) [facility] Method Time Signature Pulmonary COPATH Function Test Name: ? NegarJude mcginnis ?ID: ?[id number] Doctor: ?Demirel, Mike ?Height: ?150.00 cm ?Age: ?? 13 Tech: ??DAVID, RENETTA ?Weight: ? 39.90 kg ? Sex: ?? Male Date: ?07/24/2013 ? Time: 10:47:49 AM ?? Race: ?<Unspecified> PT ID: ? Doctor ID: Diagnosis: ? f/u pneumonia; hypoplastic left heart sy n Dyspnea: Cough: Wheeze: Post-Test Comments: The results of this test appear to be valid, although the AT S standard for end of test was not met. ??Pre-test SpO2 ??93% ?? Pr e-test HR 76 ??on room air @ rest. ? PRE-BRONCH ? POST-BRONCH ? Evette ? Prd ? %Prd ?Evette ?%Prd ? %Chg SPIROMETRY FVC (L) ?2.61 ?3.03 ? 86 FEV1 (L) ? 2.39 ?2.69 ? 89 FEV1/FVC (%) ? 92 ?85 ?108 FEV1/FEV6 (%) ?92 ?85 ?108 FEF 25-75% ? 2.77 ?3.12 ? 89 FEF Max (L/sec) ?4.16 ?5.74 ? 72 FIVC (L) ? 1.29 FIF Max (L/sec) ?2.19 ?3.74 ? 58 INTERPRETATION: Specimen (Source) Anatomical Collection Method Collection Time Re ceived Time Location / / Volume Laterality 07/24/2013 10:47 AM THERAPEUTIC RADIOLOGIST Juliana Neal VENDING MACHINE COLLECTOR DELIVERY MANAGER PFT ORDERABLES Performing Organization Address City/State/ZIP Code Phon e Number COPATH documented in this encounter Visit Diagnoses Diagnosis SOB (shortness of breath) - Primary Shortness of breath documented in this encounter
--- OUTSIDE RECORDS SUMMARY | 2022-04-10 10:01 | XMS_ITS | Encounter Summary ---
:2000 Author Organization [facility] Address [address] [place] [address] Care Team Providers Name Role Phone Unavailable Primary Care Provider Unavailable Reason for Visit Reason Comments RECHECK Pt here for a follow up on c olitis Encounter Details Date Type Department Care Team Description 01/06/2013 Office Visit [facility] Seth Andrews Colitis (Primary Dx); Pediatric Specialty Tacho Petit [facility] HYPOPLASTIC LEFT HEART SYND; Clinic [address] History of gastritis [address] [place] [id number] [phone] Social History Tobacco Use Types Packs/Day Years Used Date Smoking Tobacco: Never Comments: none at home Alcohol Use Standard Drinks/Week Comments Not Asked 0 (1 standard drink = 0.6 oz pure alcoho l) Sex Assigned at Date Recorded Male 03/09/2019 1:21 PM CDT documented as of this encounter Last Filed Vital Signs Vital Sign Reading Time Taken Comments Blood Pressure 107/73 01/06/2013 12:49 PM CDT Pulse 91 01/06/2013 12:49 PM CDT Temperature - - Respiratory Rate - - Oxygen Saturation - - Inhaled Oxygen Concentration - - Weight 37 kg (81 lb 9.6 oz) 01/06/2013 12:49 PM CDT Height 145 cm (4' 9.1) 01/06/2013 12:49 PM CDT Body Mass Index 17.6 01/06/2013 12:49 PM CDT Body Mass Index Percentile 36.34 % 01/06/2013 12:49 PM C DT Growth Chart: [facility] (Boys, 2-20 Years) documented in this encounter Progress Notes Seth Andrews, ROBERTA - 01/06/2013 12:57 PM CDT Here with Dad CC: Follow up colitis HPI: Jude was previously followed by my former partner, Dr. Dominga Ngo, for a history of hematochezia. He underwent colonoscopy and upper endoscopy in June 2010 which showed mild lymphocytic gastritis and increased lymphocytes with mild architectural changes in the colon. Dr. Ngo mentionedthe possibility of collagenous colitis. She recommended discontinuing his usual aspirin and placing him on mesalamine. Today, Dad reports that Jude has continued to take Balsalazide (Colazal) 1,500 mg per day over the last 2 years. This is a prodrug which converts to mesalamine. He also continues to take Prilosec 20 mgper day in the morning. Since the last visit with Dr. Ngo he has had little or no rectal bleeding. They cannot remember the last time this occurred. Jude says he has a BM every other day or every 2 days which is well formed and small to medium in size. It is not painful. No history of soiling. Hehas umbilical abdominal pain once a day or less which is mild and usually occurs about 2 hours aftereating. It is not related to specific foods. It does not wake him from sleep. It lasts for 5-10 minutes. No nausea, vomiting or dysphagia. He has regurgitation of stomach contents into his throat occasionally after taking his medicines. Otherwise, no regurgitation. Review of records show his last set of labs in April 2012 included a normal TSH and comprehensivemetabolic panel. A complete review of systems reveals Jude has been afebrile. No history of chronic coughing or congestion. No mouth ulcerations. No rashes. No joint pain, erythema or swelling. No dysuria or urinary incontinence. No history of headaches. All other systems negative. PMHX, Family & Social History: Unchanged from last visit with Dr. Ngo. He sees Dr. 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 He had a central shunt, Fortino procedure and Fontan at [facility] followed by catheter closure of Fontan at the [facility]. He was born in [place] and adopted by [employer] when he was 3 years old. Dad notes that Jude is very physically active and has remained very healthy. Immunizations UTD. He has not had any further surgeries or hospitalizations since Dr. Ngo saw him in 2010. He is allergic to Catopril. On physical exam, Jude is a well appearing [place] boy. He is very quiet but appropriate for age. The height was 145 cm (9%ile) and weight 37 kg (14%ile). BMI was 17.6 (36%ile). Examination of HEENT was negative. Sclerae clear, no icterus. Pupils round and reactive to light. The mouth and throat were clear, teeth appeared normal. TMs normal. Neck supple, no lymphadenopathy or masses. The hearthad a regular rhythm. Breath sounds clear and equal to auscultation. No rales, rhonchi or wheeze. Abdomen was soft, nondistended and nontender. There were no masses or organomegaly. The skin was clear,no rashes. Extremities normally formed without clubbing or edema. There was equal strength throughout. Assessment: 12 year old boy with a past history of lymphocytic colitis. This is also called microscopic colitis and I gave Dad a hand out from [employer] about this. It can be self limited but in other cases it can recur. It has been associated with celiac disease so it would be appropriate to screen him for this. I have put in orders to do this when he comes to cardiology clinic tomorrow. We will also check a CRP and ESR. This type of colitis can also be associated with the use of NSAID's which were appropriately discontinued. He is asymptomatic and has been for quite some time. I will discuss his case with my colleagues. In all likelihood, we will take him off the balsalazide and plan to repeat the colonoscopy if his symptoms return. In the meantime, I will have him return stool samples for hemoccult testing and fecal calprotectin. He has been on Prilosec for quite some time and it may no longer be needed. To help us establish whether he should continue it, I recommended that they decrease the dosing to every other day for one month. If he continues to feel well, they can discontinue it. Should he have symptoms such as regurgitation, upper abdominal pain, nausea, we can simply re-start it and consider repeating the upper endoscopy if he didn't respond. I will see him back as needed depending on the outcome of the above plan. Dad has asked me to communicate this information with his via e-mail at [email or web address] I personally reviewed results of laboratory evaluation, imaging studies and past medical records that were available during this outpatient visit. Seth Andrews MS, RN, CPNP Pediatric Nurse Practitioner Pediatric Gastroenterology, Hepatology and Nutrition [facility] [phone] Patient Care Team: Trey Wallace as PCP - General TREY WALLACE documented in this encounter Nursing Notes 01/06/2013 1:00 PM CDT >> HUMERA Beckford Jan 06, 2013 12:56 PM Informant- Jude is accomanplied by father Reason for Visit- Pt here for a follow up on colitis Vitals signs- BP 107/73 Pulse 91 Ht 1.45 m (4' 9.1) Wt 37.014 kg (81 lb 9.6 oz) BMI 17.60 kg/m2 Face to Face time: 5 minutes Melissa Kathleen MA documented in this encounter Plan of Treatment Upcoming Encounters Date Type Specialty Care Team Description 07/27/2022 Ancillary Procedure Cardiology Cordell Juarez MD [address] [facility] [place], [place] [id number] (Arleen valdes) 07/27/2022 Office Visit Cardiology Cordell Juarez MD [address] [facility] [address] [place], [place] [address] (Arleen valdes) documented as of this encounter Visit Diagnoses Diagnosis Colitis - Primary Other and unspecified noninfectious tesha roenteritis and colitis 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
--- OUTSIDE RECORDS SUMMARY | 2022-04-10 10:01 | XMS_ITS | Encounter Summary ---
:2000 Author Organization [facility] Address [address] [place] [address] Care Team Providers Name Role Phone Unavailable Primary Care Provider Unavailable Reason for Visit Reason Onset Date Comments Anticoagulation 12/05/2011 Encounter Details Date Type Department Care Team Description 12/05/2011 Telephone [facility] Bayron Page , Anticoagulation Anticoagulation Clin ic [facility] [address] [place], [place] [phone] [facility] [phone] [place] [address] [address] [place] [address] (Wo rk) Social History Tobacco Use Types Packs/Day Years Used Date Smoking Tobacco: Never Comments: none at home Alcohol Use Standard Drinks/Week Comments Not Asked 0 (1 standard drink = 0.6 oz pure alcoho l) Sex Assigned at Date Recorded Male 03/09/2019 1:21 PM CDT documented as of this encounter Miscellaneous Notes Telephone Encounter - Bayron Page [facility] - 12/05/2011 1:14 PM CDT Current Warfarin Regimen 2.5 mgs (1 @ 2.5 mg) TuWThSaSu <---> 5 mgs (2 @ 2.5 mg) MF Current INR Value 1.30 (Lab from 11/28/11) Desired Lab Goal Range 2.00 - 2.50 Assessment Sub Bleeding Episodes ... No Clotting Episodes ..... No Medication Changes No Diet Changes .............. No Health Changes ......... No New Recommended Warfarin Regimen: 2.5 mgs (1 @ 2.5 mg) TuWThSaSu <---> 5 mgs (2 @ 2.5 mg) MF Next Scheduled labs: 12/20/2011 Results Given To: Spoke with patient's Mom. She said that Luke misses doses Results Given By: Aamir Page RP documented in this encounter Plan of Treatment Upcoming Encounters Date Type Specialty Care Team Description 07/27/2022 Ancillary Procedure Cardiology Cordell Juarez MD [address] [place] [address] (Arleen valdes) 07/27/2022 Office Visit Cardiology Cordell Juarez MD [address] [place], [place] [phone] (Arleen valdes) documented as of this encounter Visit Diagnoses Not on filedocumented in this encounter
--- OUTSIDE RECORDS SUMMARY | 2022-04-10 10:01 | XMS_ITS | Encounter Summary ---
:2000 Author Organization [place] Address [facility] [place] [address] Care Team Providers Name Role Phone Unavailable Primary Care Provider Unavailable Encounter Details Date Type Department Care Team Description 07/24/[address] [facility] Demirel, Mike, Hypopla stic left heart [facility] syndrome (Primary Dx) Specialty Clinic [address] [place], [place] [address] [id number] [phone] [place], [place] (Fax) [phone] Social History Tobacco Use [...] Ancillary Procedure Cardiology Cordell Juarez MD [address] [place] [phone] (Wo rk) 07/27/2022 Office Visit Cardiology Cordell Juarez MD [address] [place], [place] [address] (Wo rk) documented as of this encounter Procedures Procedure Name Priority Date/Time Associated Diagnosis Comme nts HC RESPIRATORY FLOW Routine 07/24/2013 11:34 AM Hypoplastic le ft heart [employer] syndrome HIM PROCEDURE SCAN Routine 07/24/2013 Hypoplastic left heart syndrome documented in this encounter Results PFT Procedure Scan - HIM Procedure Scan (07/24/2013) Narrative This result has an attachment that is no t available. Mike Patrick MD PROCEDURES documented in this encounter 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
--- OUTSIDE RECORDS SUMMARY | 2022-04-10 10:01 | XMS_ITS | Encounter Summary ---
:2000 Author Organization [place] Address [address] [facility] [place] [address] Care Team Providers Name Role Phone Unavailable Primary Care Provider Unavailable Reason for Visit Reason Comments Headache Encounter Details Date Type Department Care Team Description 07/09/2013 Emergency [facility] Camille Bunch MD Hives (Primary Dx) Emergency Department [address] [facility] [address] [place] [id number] [place] [phone] Social History Tobacco Use Types Packs/Day Years Used Date Smoking Tobacco: Never Comments: none at home Alcohol Use Standard Drinks/Week Comments Not Asked 0 (1 standard drink = 0.6 oz pure alcoho l) Sex Assigned at Date Recorded Male 03/09/2019 1:21 PM CDT documented as of this encounter Last Filed Vital Signs Vital Sign Reading Time Taken Comments Blood Pressure 98/54 07/09/2013 3:46 PM TRAY FILLER Pulse 75 07/09/2013 1:20 PM TRAY FILLER Temperature 36.7 ??C (98.1 ??F) 07/09/2013 3:46 PM TRAY FILLER Respiratory Rate 20 07/09/2013 3:46 PM TRAY FILLER Oxygen Saturation 96% 07/09/2013 3:46 PM TRAY FILLER Inhaled Oxygen Concentration - - Weight 39.6 kg (87 lb 4.8 oz) 07/09/2013 1:20 PM TRAY FILLER Height - - Body Mass Index - - documented in this encounter Discharge Instructions Discharge InstructionsRachelle Lama MD - 07/09/2013 3:21 PM CST Emergency Department Discharge Information for Jude Roque was seen in the [facility] Department today for hand swelling by Rachelle Lama MD and Dr. Bunch. We recommend that you give benadryl every 6-8 hours as needed for itching and hives. If the benadrylmakes him sleepy during the day, you can try a dose of Claritin in the morning instead of benadryl. If Jude has discomfort from fever or other pain, he can have: Acetaminophen (Tylenol) every 6 hours as needed. His dose is: 15 ml (480 mg) of the ???s or children???s liquid OR 1 extra strength tab (500 mg) (32.7-43.2kg/72-95 lb) NOTE: If your acetaminophen (Tylenol) came with a dropper marked with 0.4 and 0.8 ml, call us ([phone]) or check with your doctor about the dose before using it. Please return to the ED or contact his primary physician if he becomes much more ill, if he has worsening swelling or trouble breathing or if you have any other concerns. Please make an appointment to follow up with Your Primary Care Provider in 2-3 days if not improving. Home Back SP fr pl RU CH Hives Hives is an itchy red rash that can appear suddenly and move about your body. It goes away in one place and comes back in another. This is usually caused by something that you are allergic to such as: EATING: fruit, shellfish, chocolate, nuts, tomatoes or medicine BREATHING: pollens, animal hair/fur or mold spores Exposure to cold air, sun rays or exercise can sometimes cause an attack. Many times we cannot find a cause. Medicines can be used to reduce itching and swelling. The rash will usually fade over several days, but can sometimes last up to two weeks. Home Care: 1) Do not wear tight clothing and do not take hot baths/showers since heat can make the itching worse. 2) An ice pack (ice cubes in a plastic bag, wrapped in a towel) will reduce local areas of redness and itching. Lanacaine cream or Solarcaine spray (or other product containing benzocaine) will reduce itching. 3) Oral Benadryl (diphenhydramine) is an antihistamine available at drug and grocery stores. Unless a prescription antihistamine was given, Benadryl may be used to reduce itching if large areas of the skin are involved. Use lower doses during the daytime and higher doses at bedtime since the drug may make you sleepy. [NOTE: Do not use Benadryl if you have glaucoma or if you are a man with trouble urinating due to an enlarged prostate.] Claritin (loratadine) is an antihistamine that causes less drowsiness and is a good alternative for daytime use. 4) If you know what you are sensitive to, avoid this substance. Future reactions could be worse thanthis one. Follow Up with your doctor as directed by our staff, if symptoms do not begin to improve in two days. If you have had a severe reaction, or have had several episodes of hives, then ask your doctor about allergy testing to find out what you are allergic to. Get Prompt Medical Attention if any of the following occur: -- Trouble breathing or swallowing -- New or increased swelling in the face, lips, tongue or throat -- Dizziness, weakness or fainting ?? [id number], [place] [address]. All rights reserved. This information is not intended as a substitute for professional medical care. Always follow your healthcare professional's instructions. FILLER documented in this encounter Medications at Time of Discharge Medication Sig Dispensed Refills Start Date End Date azithromycin (ZITHROMAX Two tablets on 6 tablet 0 07/09/19 14 07/24/2013 Z-KAMALJIT) 250 MG tablet the first day, then one tablet daily for the next 4 days [facility] PO Take 1 tablet by 0 07/24/2013 mouth 2 times daily. dexmethylphenidate (FOCALIN Take 1 capsule by 30 capsule 0 1 08/12/2013 XR) 10 MG 24 hr mouth daily. capsuleIndications: ADHD (attention deficit hyperactivity disorder) diphenhydrAMINE (BENADRYL) Take 1 tablet (25 30 tablet 0 08/12/2013 25 MG tablet mg) by mouth every 6 hours as needed for itching lisinopril Take 1 tablet (10 90 tablet 10 05/18/2013 015 (PRINIVIL,ZESTRIL) 10 MG mg) by mouth tabletIndications: daily Hypoplastic left heart syndrome Loratadine (CLARITIN PO) Take 10 mg by 0 03/06/2017 mouth daily Reported on 09/14/2016 omeprazole (PRILOSEC) 20 MG Take 1 capsule 30 capsule 5 02/201307/24/2013 capsuleIndications: History (20 mg) by mouth of gastritis daily omeprazole (PRILOSEC) 20 MG Take 1 capsule 90 capsule 3 02/201301/17/2016 capsuleIndications: History (20 mg) by mouth of gastritis daily warfarin (COUMADIN) 2 MG Take one tablet 90 tablet 0 201209/03/2013 tabletIndications: S/P every Saturday, Fontan procedure Saturday, Saturday and Saturday. warfarin (COUMADIN) 4 MG Take one tablet 90 tablet 2 201107/23/2014 tabletIndications: on Saturday and Hypoplastic left heart syndrome documented as of this encounter ED Notes Dariusz Bunch MD - 07/09/2013 1:30 PM CST History Chief Complaint Patient presents with ??? Headache HPI Jude is a 13 year old with history of complex congenital heart disease who presents with complaints of bilateral hand swelling since this morning and intermittent headache for 4 days. Jude describes the headaches as pulsatile and posterior, 5/10 at the worst and relieved with tylenol. No changes in vision. Mom, who is a nurse has been checking his blood pressure when he has his headaches and has not found his blood pressure to be elevated. Mom observed him to be appearing not himself last night. His temp was 100 deg F, BP 97/60. He seemed improved after Tylenol. This morning, he complained of hand itching, and his mom told him to use some lotion. He did not note the hand swelling until he was onthe school bus. His mom talked to a nurse in the cardiology clinic and was advised to bring Jude here. Jude has not had fever today. He does have some cough and congestion. No SOB, chest pain, dizziness.Mom thinks he looks slightly pale and while in the ED, she notes puffiness around his eyes. No new medications, food or topical exposures. Most recent echo (01/07/13): Patient after Fontan completion for double outlet [...] flow appears laminar. No aortic insufficiency seen. These were reviewed with the patient/family. PMHx: Past Medical History Diagnosis Date ??? 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 Esophageal reflux ??? Congenital anomalies of spleen Polysplenia Past Surgical History Procedure Date ??? C repr by modified fontan fenestrated fontan ??? 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 ? Hc circumcision surgical non-dev >28 days age 2004 MEDICATIONS were reviewed and are as follows: Outpatient Prescriptions Marked as Taking for the 07/09/13 encounter (Hospital Encounter): omeprazole (PRILOSEC) 20 MG capsule Take 1 capsule (20 mg) by mouth daily Disp: 30 capsule Rfl: 5 warfarin (COUMADIN) 2 MG tablet Take one tablet every Saturday, Saturday, Saturday and Saturday. Disp: 90tablet Rfl: 0 lisinopril (PRINIVIL,ZESTRIL) 10 MG tablet Take 1 tablet (10 mg) by mouth daily Disp: 90 tablet Rfl:10 warfarin (COUMADIN) 4 MG tablet Take one tablet on Saturday and Disp: 90 tablet Rfl: 2 dexmethylphenidate (FOCALIN XR) 10 MG 24 hr capsule Take 1 capsule by mouth daily. Disp: 30 capsule Rfl: 0 ALLERGIES: Captopril (hyperactive) IMMUNIZATIONS: UTD by report. Received seasonal influenza. SOCIAL HISTORY: Jude lives with parents and 3 siblings; he does attend school. I have reviewed the Medications, Allergies, Past Medical and Surgical History, and Social History inthe [employer] system. Review of Systems Please see HPI for pertinent positives and negatives. All other systems reviewed and found to be negative. Physical Exam BP: 108/64 mmHg Pulse: 75 Temp: 96.8 ??F (36 ??C) Resp: 20 Weight: 39.6 kg (87 lb 4.8 oz) SpO2: 96 % Physical Exam Appearance: Alert and appropriate, well developed, nontoxic, with moist mucous membranes. HEENT: Head: Normocephalic and atraumatic. Eyes: slight periorbital edema; PERRL, EOM grossly intact, conjunctivae and sclerae clear. Ears: Tympanic membranes clear bilaterally, without inflammation oreffusion. Nose: no active rhinorrhea. Mouth/Throat: No oral lesions or oral swelling, pharynx clear with no erythema or exudate. Neck: Supple, no masses. No significant cervical lymphadenopathy. Pulmonary: No grunting, flaring, retractions or stridor. Good air entry, clear to auscultation bilaterally, with no rales, rhonchi, or wheezing. Cardiovascular: Regular rate and rhythm, 3/6 systolic murmur loudest at the left sternal border. Normal symmetric peripheral pulses and brisk cap refill. Abdominal: Normal bowel sounds, soft, nontender, nondistended, with no masses and no hepatosplenomegaly. Neurologic: Alert and oriented, cranial nerves II-XII grossly intact, moving all extremities equallywith grossly normal coordination and normal gait. Extremities/Back: There is bilateral non-pitting hand swelling Skin: erythematous patches over right wrist and left neck, no ecchymoses, or lacerations. Genitourinary: Normal male external genitalia without swelling Rectal: Deferred ED Course Procedures Results for orders placed during the hospital encounter of 07/09/13 INFLUENZA A/B ANTIGEN Component Value Range Influenza A/B Agn Specimen Nares Influenza A Negative NEG Influenza B Negative NEG ROUTINE UA WITH MICROSCOPIC Component Value Range Color Urine Yellow Appearance Urine Slightly Cloudy Glucose Urine Negative NEG mg/dL Bilirubin Urine Negative NEG Ketones Urine 10 (*) NEG mg/dL Specific [place] Urine 1.028 1.003 - 1.035 Blood Urine Negative NEG pH Urine 5.5 5.0 - 7.0 pH Protein Albumin Urine 10 (*) NEG mg/dL Urobilinogen mg/dL 2.0 0.0 - 2.0 mg/dL Nitrite Urine Negative NEG Leukocyte Esterase Urine Negative NEG Source Midstream Urine WBC Urine 1 0 - 2 /HPF RBC Urine 2 0 - 2 /HPF Mucous Urine Present (*) NEG /LPF EKG 12 LEAD - PEDIATRIC Component Value Range Interpretation ECG Click View Image link to view waveform and result XR CHEST 2 VW Narrative: HISTORY: Congenital heart disease, peripheral edema. Fontan, fenestrations closed by device. COMPARISON: 02/06/2007. FINDINGS: Two-view chest at 1443 hrs. There is opacity in the right lower lobe, with silhouetting of the right hemidiaphragm. There is also dense atelectasis in the anterior right lower lobe on the lateral view. This is new from the prior study. There is a partially calcified conduit along the right side of the heart. Normal heart size, several mediastinal clips, and an occluder device are again noted. Included bones appear intact. No definite pleural fluid. The lowest sternal wire has fractured since the prior study in 2006. Impression: IMPRESSION: 1. Dense opacification in the anterior right lower lobe, and more diffuse opacities in the right lower lobe. This is concerning for a combination of atelectasis and infiltrate, and infection is not excluded. 2. Calcification of the Fontan conduit with mild progression since the prior examination. Consider cardiac echo to evaluate for stenosis, if clinically indicated. DEMETRIO LIN MD The patient was evaluate and found to be clinically stable. EKG and chest x ray were obtained. EKG demonstrated left axis deviation and right ventricular hypertrophy (no significant change from baseline). Chest X ray was notable for right lower lobe opacity. The patient did develop hives during his ED course. He was given a dose of benadryl. His hand swelling improved. Due to his history of complex congenital heart disease, he was discussed with the cardiology service, who saw the patient in the ED and reviewed his EKG and imaging. No further intervention was recommended and it was agreed that the patient was stable for discharge to home. 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 Workup reveals right lower lobe infiltrate. Atypical pneumonia would be the most common in his age group, and mycoplasma can be associated with hives. His hand and periorbital swelling have improved. His presentation is not consistent with Fontan failure, nor is thereevidence of more serious infection or allergic reaction producing airway compromise. Recommended if persistent fever, vomiting, dehydration, difficulty in breathing or any changes or worsening of symptoms needs to come back for further evaluation or else follow up with the PCP in 2-3 days. - Discharge to home - 5 day course of azithromycin - Benadryl q6-8 hours prn for itching; alternatively, can use Claritin if benadryl causes excessive drowsiness. - Follow up with primary care in 2-3 days if not improving - Return to ED if severe swelling, involvement of lips or mouth, or trouble breathing I have reviewed the nursing notes. I have reviewed the findings, diagnosis, plan and need for follow up with the patient. Plan discussed with Dr. Bunch. Rachelle Lama MD, PL2 This data collected with the Resident working in the Emergency Department. Patient was seen and evaluated by myself and I repeated the history and physical exam with the patient. The plan of care was discussed with them. The [place] portions of the note including the entire assessment and plan reflect my d ocumentation. Dr. Bunch New Prescriptions No medications on file Final diagnoses: None 07/09/2013 [facility] EMERGENCY DEPARTMENT Dariusz Bunch MD 07/11/13 1609 FILLER Tonya Sherman RN - 07/09/2013 1:23 PM CST Pt reports headaches for 4 days. This morning awoke with swollen/itchy hands. History of HLHS. Surgically repairs through the Fontan procedure. VSS. Afebrile. Currently no headache. Cardiology advised pt to be seen in ED. Mother at bedside. FILLER documented in this encounter Plan of Treatment Upcoming Encounters Date Type Specialty Care Team Description 07/27/2022 Ancillary Procedure Cardiology Cordell Juarez MD [address] [place] [address] [place], [place] [phone] (Wo rk) 07/27/2022 Office Visit Cardiology Cordell Juarez MD [address] [facility] [address] [place], [place] [phone] (Wo rk) documented as of this encounter Procedures Procedure Name Priority Date/Time Associated Comments Diagnosis EKG 12 LEAD - STAT 07/09/2013 3:34 PM Results for this PEDIATRIC TRAY FILLER procedure are i n the results section. ROUTINE UA WITH STAT 07/09/2013 2:54 PM Result s for this MICROSCOPIC TRAY FILLER procedure are i n the results section. XR CHEST 2 VIEWS STAT 07/09/2013 2:46 PM Resul ts for this TRAY FILLER procedure are i n the results section. INFLUENZA A/B ANTIGEN STAT 07/09/2013 2:28 PM Results for this TRAY FILLER procedure are i n the results section. documented in this encounter Results EKG 12 lead - pediatric (07/09/2013 3:34 PM TRAY FILLER) [facility] Method Time Signature Interpretation ECG Click View RADIOLOGY Image link RESULTS to view waveform and result Specimen (Source) Anatomical Collection Method Collection Time Re ceived Time Location / / Volume Laterality 07/09/2013 3:34 PM TRAY FILLER Rachelle Lama MD ECG ORDERABLES Performing Organization Address City/State/ZIP Code Phon e Number RADIOLOGY RESULTS (ABNORMAL) UA with Microscopic (07/09/2013 2:54 PM TRAY FILLER) Sumpto Method Time Signature Color Urine Yellow [facility] Appearance Urine Slightly [facility] Cloudy [facility] Glucose Urine Negative NEG mg/dL [facility] Bilirubin Urine Negative NEG [facility] Ketones Urine 10 (A) NEG mg/dL [facility] Specific [place] 1.028 1.003 - [facility] Urine 1.035 [facility] Blood Urine Negative NEG [facility] pH Urine 5.5 5.0 - 7.0 [facility] pH [facility] Protein Albumin 10 (A) NEG mg/dL [facility] Urine [facility] Urobilinogen 2.0 0.0 - 2.0 [facility] mg/dL mg/dL [facility] Nitrite Urine Negative NEG [facility] Leukocyte Negative NEG [facility] Esterase Urine [facility] Source Midstream [facility] Urine [facility] WBC Urine 1 0 - 2 [facility] /HPF [facility] RBC Urine 2 0 - 2 [facility] /HPF [facility] Mucous Urine Present (A) NEG /LPF [facility] Specimen Anatomical Collection Method Collection Time Receive d Time (Source) Location / / Volume Laterality Urine specimen URINE SPECIMEN 07/09/2013 2:54 PM 07/09 3:01 (specimen) OBTAINED BY CLEAN TRAY FILLER PM TRAY [facility]ER CATCH PROCEDURE / Unknown Rachelle Lama MD LAB - URINE ORDERABLES Performing Organization Address City/State/ZIP Code Phon e Number [facility] [address] [place] [address] [facility] XR Chest 2 Views (07/09/2013 2:46 PM TRAY FILLER) Anatomical Region Laterality Modality Chest Other Specimen (Source) Anatomical Collection Method Collection Time Re ceived Time Location / / Volume Laterality 07/09/2013 2:46 PM TRAY FILLER Impressions 07/09/2013 3:11 PM TRAY FILLER IMPRESSION: 1. Dense opacification in the anterior r ight lower lobe, and more diffuse opacities in the right lower lob e. This is concerning for a combination of atelectasis and infiltrat e, and infection is not excluded. 2. Calcification of the Fontan conduit w ith mild progression since the prior examination. Consider cardiac echo to evaluate for stenosis, if clinically indicated. DEMETRIO LIN MD Narrative 07/09/2013 3:11 PM TRAY FILLER HISTORY: Congenital heart disease, perip heral edema. Fontan, fenestrations closed by device. COMPARISON: 02/06/2007. FINDINGS: Two-view chest at 1443 hrs. Th ere is opacity in the right lower lobe, with silhouetting of the rig ht hemidiaphragm. There is also dense atelectasis ??in the anterior right lower lobe on the lateral view. This is new from the prior study. There is a partially calcified conduit along the right side o f the heart. Normal heart size, several mediastinal clips, and an occluder device are again noted. Included bones appear intact. No definite pleural fluid. The lowest sternal wire has fractured since the prior study in 2006. Procedure Note Demetrio Lin MD - 07/09/2013Formattin g of this note might be different from the original. HISTORY: Congenital heart disease, perip heral edema. Fontan, fenestrations closed by device. COMPARISON: 02/06/2007. FINDINGS: Two-view chest at 1443 hrs. Th ere is opacity in the right lower lobe, with silhouetting of the rig ht hemidiaphragm. There is also dense atelectasis in the anterior r ight lower lobe on the lateral view. This is new from the prior study. There is a partially calcified conduit along the right side o f the heart. Normal heart size, several mediastinal clips, and an occluder device are again noted. Included bones appear intact. No definite pleural fluid. The lowest sternal wire has fractured since the prior study in 2006. IMPRESSION IMPRESSION: 1. Dense opacification in the anterior r ight lower lobe, and more diffuse opacities in the right lower lob e. This is concerning for a combination of atelectasis and infiltrat e, and infection is not excluded. 2. Calcification of the Fontan conduit w ith mild progression since the prior examination. Consider cardiac echo to evaluate for stenosis, if clinically indicated. DEMETRIO LIN MD Rachelle Lama MD IMG DIAGNOSTIC IMAGING ORDER BHAVESH Influenza A/B antigen (07/09/2013 2:28 PM TRAY FILLER) P athologist Signature Influenza A/B Nares [facility] Agn Specimen [facility] Influenza A Negative NEG [facility] Influenza B Negative NEG [facility] Specimen (Source) Anatomical Location Collection Collection Time Received Time / Laterality Method / Volume Specimen from NASOPHARYNGEAL 07/09/2013 2:28 4 nasopharyngeal STRUCTURE / Unknown PM TRAY FILLER 2:29 P M TRAY FILLER structure (specimen) Dariusz Bunch MD LAB - MICRO GENERAL ORDERABL ES Performing Organization Address City/State/ZIP Code Phon e Number [facility] [address] [place] [address] [facility] documented in this encounter Visit Diagnoses Diagnosis Hives - Primary Urticaria, unspecified documented in this encounter Administered Medications Inactive Administered Medications - up to 3 most recent administrations Medication Order MAR Action Action Date Dose Rate Site diphenhydrAMINE (BENADRYL) capsule Given 07/09/2013 2:46 PM TRAY FILLER 25 mg 25 mg 25 mg (0.631 mg/kg), Oral, ONCE, On Suze 07/09/13 at 1439, For 1 dose documented in this encounter Active and Recently Administered Medications Times are shown in TRAY FILLER. Scheduled Medication Order 07/07/2013 07/08/2013 07/09/2013 diphenhydrAMINE (BENADRYL) capsule 25 mg (COMPLETED) 1446 (Given - Provider: Angela Talbot RN) 25 mg = 0.631 mg/kg, Oral, ONCE, Suze 07/09/13 at 1439, For 1 dose documented in this encounter
--- OUTSIDE RECORDS SUMMARY | 2022-04-10 10:02 | XMS_ITS | Encounter Summary ---
:2000 Author Organization [facility] Address [address] [place] [address] Care Team Providers Name Role Phone Unavailable Primary Care Provider Unavailable Encounter Details Date Type Department Care Team Description 10/02/2010 Office Visit-[facility] INTER[facility] DEPT Unknown, Provider Social History Tobacco Use Types Packs/Day Years Used Date Smoking Tobacco: Never Comments: none at home Alcohol Use Standard Drinks/Week Comments Not Asked 0 (1 standard drink = 0.6 oz pure alcoho l) Sex Assigned at Date Recorded Male 03/09/2019 1:21 PM CDT documented as of this encounter Progress Notes Unknown, Provider - 10/02/2010 2:00 PM CDT Managed Services Consultant: Zoe Morales Status: Amended, Final Encounter: 2010-10-02 14:00:00.000 Type: Rooming Note Informant Parent is informant unless otherwise noted. Reason For Visit Patient is here for blood in stool follow up Do you have any other appointments, tests or procedures within the [facility] system for this same day? No. Pain Eval Current history of pain associated with this visit is as follows: Location: stomach Quality: achy Severity: 4-6 (Pain scale 1-10, with 10 being the worst) Duration: varies Timing: varies Context: none Modifying factors: none Associated signs/symptoms: none . Personal Hx Behavioral history: No tobacco use Amended By: Zoe Morales ; 10/02/2010 2:01 PM TUBE DEPATCHER. Home environment: No secondhand tobacco smoke in home Amended By: Zoe Morales ; 10/02/2010 2:01 PM TUBE DEPATCHER. Vital Signs Position for height measurement: standing Blood pressure taken with: electronic BP machine. Height Percentile: 6` Weight Percentile: 8 BMIL 16 BMI %: 28 . Recorded by Zoe Morales on 02 Oct 2010 01:55 PM BP:113/62, LUE, Sitting, HR: 82 b/min, R Radial, Resp: 20 r/min, Temp: 96.7 F, Oral, Height: 131.4 cm, Weight: 27.5 kg, BMI: 15.9 kg/m2. Immunizations Immunizations are reported as current. Allergies Captopril TABS. Current Meds Med list offered and patient declined. Focalin XR 10 MG Capsule Extended Release 24 Hour;TAKE 1 CAPSULE DAILY.; RPT Digoxin 0.125 MG Tablet;TAKE 1 TABLET DAILY.; Rx Lisinopril 10 MG Tablet;TAKE 1/2 TABLET DAILY.; Rx Omeprazole 20 MG Capsule Delayed Release;TAKE 1 CAPSULE TWICE DAILY.; Rx Amoxicillin 400 MG/5ML Suspension Reconstituted;Take 600mg (7.5ml) twice daily for 14 days; Rx AAA-MED RECONCILE;per mother; RPT. Signature Signed By: Zoe Morales MA; 10/02/2010 2:01 PM TUBE DEPATCHER. Signed By: Zoe Morales MA; 10/02/2010 2:01 PM TUBE DEPATCHER. documented in this encounter Plan of Treatment Upcoming Encounters Date Type Specialty Care Team Description 07/27/2022 Ancillary Procedure Cardiology Cordell Juarez MD [facility] [address] [place] [address] (Wo lucio) 07/27/2022 Office Visit Cardiology Cordell Juarez MD [address] [place] [address] (Arleen valdes) documented as of this encounter Visit Diagnoses Not on filedocumented in this encounter
--- OUTSIDE RECORDS SUMMARY | 2022-04-10 10:02 | XMS_ITS | Encounter Summary ---
:2000 Author Organization [place] Address [facility] [place] [address] Care Team Providers Name Role Phone Unavailable Primary Care Provider Unavailable Encounter Details Date Type Department Care Team Description 12/06/2010 Office Visit-[facility] INTERFACE [facility] DEPT Cordell Juarez MD [address] [place], [place] [address] (Wo rk) Social History Tobacco Use Types Packs/Day Years Used Date Smoking Tobacco: Never Comments: none at home Alcohol Use Standard Drinks/Week Comments Not Asked 0 (1 standard drink = 0.6 oz pure alcoho l) Sex Assigned at Date Recorded Male 03/09/2019 1:21 PM CDT documented as of this encounter Progress Notes Cordell Juarez - 12/06/2010 11:00 AM CDT Technical Marketing Engineer: Cordell Juarez Status: Final - Signature Encounter: 2010-12-06 11:00:00.000 Type: Alia Corona Letter documented in this encounter Plan of Treatment Upcoming Encounters Date Type Specialty Care Team Description 07/27/2022 Ancillary Procedure Cardiology Cordell Juarez MD [address] [place] [address] (Wo rk) 07/27/2022 Office Visit Cardiology LarryCordell blum MD [address] [place] [address] (Wo rk) documented as of this encounter Visit Diagnoses Not on filedocumented in this encounter
--- OUTSIDE RECORDS SUMMARY | 2022-04-10 10:02 | XMS_ITS | Encounter Summary ---
:2000 Author Organization [place] Address [facility] [place] [address] Care Team Providers Name Role Phone Unavailable Primary Care Provider Unavailable Encounter Details Date Type Department Care Team Description 08/21/2010 Orders Only [facility], Ignacio Mares, DIAG NOSIS NOT YET Clinic Meir DUPREE DEFINED (Primary Dx) [address] [place] [phone] Social History Tobacco Use Types Packs/Day Years [...] Ancillary Procedure Cardiology Cordell Juarez MD [address] [place] [address] (Wo rk) 07/27/2022 Office Visit Cardiology Cordell Juarez MD [address] [place] [address] [place] [address] (Wo rk) documented as of this encounter Procedures Procedure Name Priority Date/Time Associated Diagnosis Comme nts VIDEO CAPSULE ENDOSCOPY Routine 08/21/2010 DIAGNOSIS NOT YET DEFINED documented in this encounter Results VIDEO CAPSULE ENDOSCOPY (08/21/2010) Narrative This result has an attachment that is no t available. Ignacio Solo MD PROCEDURES documented in this encounter Visit Diagnoses Diagnosis DIAGNOSIS NOT YET DEFINED - Primary documented in this encounter
--- OUTSIDE RECORDS SUMMARY | 2022-04-10 10:02 | XMS_ITS | Encounter Summary ---
:2000 Author Organization [place] Address [address] [place] [address]. [place] [address] Care Team Providers Name Role Phone Unavailable Primary Care Provider Unavailable Reason for Visit Reason Onset Date Comments Anticoagulation 07/05/2011 Encounter Details Date Type Department Care Team Description 07/05/2011 Telephone [facility] Bayron Page , Anticoagulation Anticoagulation Clin ic [facility] [address] [place], [place] [phone] [facility] [phone] [place] [address] [address] [place] [address] (Wo rk) Social History Tobacco Use Types Packs/Day Years Used Date Smoking Tobacco: Never Comments: none at home Alcohol Use Standard Drinks/Week Comments Not Asked 0 (1 standard drink = 0.6 oz pure alcoho l) Sex Assigned at Date Recorded Male 03/09/2019 1:21 PM CDT documented as of this encounter Miscellaneous Notes Telephone Encounter - Bayron Page [facility] - 07/05/2011 11:07 AM CST Current Warfarin Regimen 5mgs Mon.Fri 2.5mgs all other days Current INR Value 2.20 Desired Lab Goal Range 2.00 - 2.50 Assessment Ther Bleeding Episodes ... No Clotting Episodes ..... No Medication Changes No Diet Changes .............. No Health Changes ......... No New Recommended Warfarin Regimen: 2.5 mgs (1 @ 2.5 mg) [id number] <---> 5 mgs (2 @ 2.5 mg) MF Next Scheduled labs: 07/18/2011 Results Given To: Spoke with patient's Mom Results Given By: Aamir Page RPH ON [place] documented in this encounter Plan of Treatment Upcoming Encounters Date Type Specialty Care Team Description 07/27/2022 Ancillary Procedure Cardiology Cordell Juarez MD [address] [place], [place] [phone] (Wo rk) 07/27/2022 Office Visit Cardiology Cordell Juarez MD [address] [place], [place] [address] (Wo rk) documented as of this encounter Visit Diagnoses Not on filedocumented in this encounter
--- OUTSIDE RECORDS SUMMARY | 2022-04-10 10:02 | XMS_ITS | Encounter Summary ---
:2000 Author Organization [place] Address [facility] [place] [address] Care Team Providers Name Role Phone Unavailable Primary Care Provider Unavailable Reason for Visit Reason Comments Well Child 10 year phys. Needs form com pleted for camp. Encounter Details Date Type Department Care Team Description 12/06/2010 Office Visit [facility] Ignacio Solo Rout ine or child health check (Primary Dx); Clinic [place] ATTN DEFICIT W HYPERACT; [address] Colitis; [place], [place] HYPOPLASTIC LEFT [place], [place] [phone] Social History Tobacco Use Types Packs/Day Years Used Date Smoking Tobacco: Never Comments: none at home Alcohol Use Standard Drinks/Week Comments Not Asked 0 (1 standard drink = 0.6 oz pure alcoho l) Sex Assigned at Date Recorded Male 03/09/2019 1:21 PM CDT documented as of this encounter Last Filed Vital Signs Vital Sign Reading Time Taken Comments Blood Pressure 112/78 12/06/2010 9:19 AM CDT Pulse - - Temperature 37.1 ??C (98.7 ??F) 12/06/2010 9:19 AM CDT Respiratory Rate - - Oxygen Saturation - - Inhaled Oxygen Concentration - - Weight 27.2 kg (60 lb 0.5 oz) 12/06/2010 9:19 AM CDT Height 132.1 cm (4' 4) 12/06/2010 9:19 AM CDT Body Mass Index 15.61 12/06/2010 9:19 AM CDT Body Mass Index Percentile 20.81 % 12/06/2010 9:19 AM CD T Growth Chart: CDC (Boys, 2-20 Years) documented in this encounter Progress Notes Janelle Maine - 12/06/2010 9:21 AM CDT Jude Bills is a 10 year old male here for a routine health maintenance visit, accompanied by his father. QUESTIONS/CONCERNS: Note: Doing well lately. Still with some occ bloody stools. Followed by Dr. Ngo closely. Going to see Dr. Juarez today for f/u. Going to heart camp, form to be filled out ADHD- taking focalin daily. Helpful. Sleeps very well. School went better this year academically. Bullied earlier in year but better now after intervention. Pt says he was picked on about everything. FAMILY/ SOCIAL HISTORY Child lives with: mother, father, brother and 2 sisters Recent family changes/social stressors: none noted Family History: No changes since last physical Language(s) spoken at home: Albanian ENVIRONMENTAL RISK ASSESSMENT Is your child around anyone who smokes? NO Booster seat/ seat belt? YES Bike/ sport helmet? NO (Recommended) TB exposure? NO Pets in the home? YES 1 dog Guns/firearms in the home? YES, Trigger locks present? YES Water source: well water CHICKEN POX HISTORY: Previously vaccinated with 2 doses of Varivax DEVELOPMENTAL/BEHAVIORAL SCREENING FORM: Form not indicated at this visit. VISION no concerns HEARING no concerns REQUIRED VITAL SIGNS COMPLETED: yes BP 112/78 Temp(Src) 98.7 ??F (37.1 ??C) (Oral) Ht 4' 4 (1.321 m) Wt 60 lb 0.5 oz (27.23 kg) BMI 15.61 kg/m2 5.89% of growth percentile based on fpbikon-igz-ixi. 5.71% of growth percentile based on mdrfrf-tcn-ojl. 20.61% of growth percentile based on BMI-for-age. 88.2% systolic and 94.7% diastolic of BP percentile by age, sex, and height. Staff signature: [place] Carrasco LPN HEALTH HISTORY SINCE LAST VISIT Endoscopy/colonoscopy Immunization History Administered Date(s) Administered ??? Comvax (HIB/HepB) 10/16/2001, 11/27/2001 ? ? DTAP (<7y) 10/16/2001, 11/27/2001, 01/22/2002, 02/16/2003, 01/03/2005 ??? Hepatitis B 02/22/2003 ??? IPV 10/16/2001, 11/27/2001, 01/22/2002, 01/03/2005 ??? Influenza 03/23/2002, 04/27/2002, 06/07/2005 ??? Influenza (H1N1) 04/11/2009, 06/15/2009 ??? MMR 10/16/2001, 02/16/2003, 01/03/2005 ??? Pneumococcal (PCV 7) 10/16/2001, 11/27/2001, 01/22/2002 ??? Varicella 10/16/2001, 12/16/2008 Allergies Allergen Reactions ??? Captopril Per Mom, makes him very hyper, drug used for cardiac problem (has had 3 open heart surgeries. DAILY ACTIVITIES NUTRITION: picky eater, junk food SLEEP No concerns, sleeps well through night ELIMINATION Normal urination and some blood in stools sometimes EXERCISE/ RECREATION: Age appropriate activities, loves playing baseball ACTIVITIES: none TV/ MEDIA: < 2 hours/ day EDUCATION Concerns: doing better See above note MENTAL HEALTH Concerns: no VISION: For details see above, normal HEARING: For details see above, normal ROS GENERAL: See health history, nutrition and daily activities SKIN: No rash, hives or significant lesions HEENT: Hearing/vision: see above. No eye redness/discharge, nasal congestion, sneezing, snoring RESP: No cough, wheezing, SOB CV: No cyanosis, palpitations, syncope GI: See nutrition and elimination : See elimination MS: No swelling, arthralgia, weakness, gait problem NEURO: No headaches PSYCH: See development and behavior, or mental health EXAM GENERAL: Active, alert, in no acute distress. [...] No rales, rhonchi, wheezing or retractions HEART: 2/6 murmur, reg rhythm. ABDOMEN: Soft, non-tender, not distended, no masses or hepatosplenomegaly. Bowel sounds normal. NEUROLOGIC: No focal findings. Cranial nerves grossly intact: DTR's normal. Normal gait, strength and tone BACK: Spine is straight, no scoliosis. EXTREMITIES: Full range of motion, no deformitiesGU-M: Normal male external genitalia. Kg stage 1, both testes descended, no hernia. ANTICIPATORY GUIDANCE The following topics were discussed: SOCIAL/ FAMILY: Praise for positive activities Encourage reading Limit / supervise TV/ media Limits and consequences Friends Conflict resolution NUTRITION: Healthy snacks Family meals Balanced diet HEALTH/ SAFETY: Physical activity Regular dental care Sleep issues Bike/sport helmets ASSESSMENT 1. Well child with normal growth and development 2. Cardiac hx 3. Colitis 4. ADHD PLAN Immunizations Reviewed, up to date [facility] Referrals/Ongoing Specialty care: Ongoing Specialty care by cardiology and GI Dental visit recommended: Yes RTC: 11 year rx for focalin xr given. Discussed wt and appetite. No other SE. Doing well with current dose. 3 rx given Form completed for [place]. Discussed f/u with specialists for heart disease and colitis documented in this encounter Nursing Notes 12/06/2010 9:15 AM CDT >> MAINE CARRASCO Wed Dec 06, 2010 9:23 AM Patient presents with: Well Child - 10 year phys. Needs form completed for camp. initial BP 112/78 Temp(Src) 98.7 ??F (37.1 ??C) (Oral) Ht 4' 4 (1.321 m) Wt 60 lb 0.5 oz (27.23 kg) BMI 15.61 kg/m2 Estimated Body mass index is 15.61 kg/(m^2) as calculated from the following: Height as of this encounter: 4' 4(1.321 m). Weight as of this encounter: 60 lb 0.5 oz(27.23 kg).. bp completed using cuff size pediatric documented in this encounter Plan of Treatment Upcoming Encounters Date Type Specialty Care Team Description 07/27/2022 Ancillary Procedure Cardiology Cordell Juarez MD [address] [place], [place] [address] (Wo rk) 07/27/2022 Office Visit Cardiology Cordell Juarez MD [address] [place], [place] [address] (Wo rk) documented as of this encounter Visit Diagnoses Diagnosis Routine or child health check - P [place] ATTN DEFICIT W HYPERACT Attention deficit disorder with hyperact ivity Colitis Other and unspecified noninfectious tesha roenteritis and colitis 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
--- OUTSIDE RECORDS SUMMARY | 2022-04-10 10:02 | XMS_ITS | Encounter Summary ---
:2000 Author Organization [place] Address [address] 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 She reports that Jude's symptoms are mostly unchanged. She has learned that Jude has been bullied at school since last fall and she feels the symptoms began around the same time. She wonders if stress could be a factor. Electronically signed by:Pily Viera RN Nov 07 2010 12:50PM COMMUNITY SERVICE DIRECTOR documented in this encounter Plan of Treatment Upcoming Encounters Date Type Specialty Care Team Description 07/27/2022 Ancillary Procedure Cardiology Larry, Cordell Barajas MD [address] [place] [address] (Wo rk) 07/27/2022 Office Visit Cardiology Larry, Cordell skelton MD [address] [place] [address] (Wo rk) documented as of this encounter Visit Diagnoses Not on filedocumented in this encounter
--- OUTSIDE RECORDS SUMMARY | 2022-04-10 10:02 | XMS_ITS | Encounter Summary ---
:2000 Author Organization [place] Address [facility] [place] [address] Care Team Providers Name Role Phone Unavailable Primary Care Provider Unavailable Reason for Referral Specialty Diagnoses / Procedures Referred By Contact Refer red To Contact Ignacio Solo M D [address] [place] [address] Referral ID Status Reason Start Date Expiration Date Visits Requ ested Visits Authorized Encounter Details Date Type Department Care Team Description 07/26/2010 Orders Only [facility] Ignacio Solo DIAG NOSIS NOT YET Clinic Meir DUPREE DEFINED (Primary Dx) [address] [place] [address] [place] [phone] Social History Tobacco Use Types Packs/Day Years [...] Ancillary Procedure Cardiology Cordell Juarez MD [address] [facility] [address] [place], [place] [address] (Wo rk) 07/27/2022 Office Visit Cardiology Cordell Juarez MD [address] [place], [place] [address] (Wo rk) documented as of this encounter Procedures Procedure Name Priority Date/Time Associated Diagnosis Comme nts PEDIATRIC CARDIOLOGY EVAL Routine 07/26/2010 DIAGNOSIS NOT Y ET DEFINED SEAFOOD PREPARER REFERRAL documented in this encounter Results CARDIOLOGY EVAL PEDS REFERRAL (07/26/2010) Narrative This result has an attachment that is no t available. Ignacio Solo MD REFERRAL documented in this encounter Visit Diagnoses Diagnosis DIAGNOSIS NOT YET DEFINED - Primary documented in this encounter
--- OUTSIDE RECORDS SUMMARY | 2022-04-10 10:02 | XMS_ITS | Encounter Summary ---
:2000 Author Organization [place] Address [address] [place] [address] Care Team Providers Name Role Phone Unavailable Primary Care Provider Unavailable Encounter Details Date Type Department Care Team Description 01/30/2011 Orders Only [facility] Ot er and unspecified coagulation defects; [facility] Encounter for long-term (cur rent) use of anticoagulants [address] [place] [address] Social History Tobacco Use Types Packs/Day Years [...] Procedure Cardiology Cordell Juarez MD [facility] [place] [address] [phone] (Wo rk) 07/27/2022 Office Visit Cardiology Cordell Juarez MD [address] [place] [id number] [place], [place] [phone] (Arleen valdes) documented as of this encounter Procedures Procedure Name Priority Date/Time Associated Diagnosis Comme nts INR Routine 01/30/2011 3:15 PM Other and unspecified Results for this CDT coagulation defe cts procedure are in Encounter for long-term the results (current) use of section. anticoagulants documented in this encounter Results (ABNORMAL) INR (01/30/2011 3:15 PM CDT) P athologist Signature INR 2.00 (H) 0.86 - 1.14 [facility] Specimen Anatomical Collection Method Collection Time Receive d Time (Source) Location / / Volume Laterality Blood specimen 01/30/2011 3:15 PM 011 3:19 (specimen) CDT PM CDT Jacky Stephenson MD LAB - BLOOD ORDERABLES Performing Organization Address City/State/ZIP Code Phon e Number [facility] [address] [place] [address] [facility] documented in this encounter Visit Diagnoses Diagnosis Other and unspecified coagulation defect s retirement (current) use of anticoagulant s Long-term (current) use of anticoagulant s documented in this encounter
--- OUTSIDE RECORDS SUMMARY | 2022-04-10 10:02 | XMS_ITS | Encounter Summary ---
:2000 Author Organization [place] Address [address] [place] [address]. [place] [address] Care Team Providers Name Role Phone Unavailable Primary Care Provider Unavailable Encounter Details Date Type Department Care Team Description 12/07/2010 Orders Only [facility] Jacky Stephenson Other and unspecified coagulation defects; Clinic [place] MD Jayson Encounte r for long-term (current) use of anticoagulants Laboratory [id number] [place] [phone] Social History Tobacco Use Types Packs/Day [...] Ancillary Procedure Cardiology Cordell Juarez MD [address] [place] [address] (Wo rk) 07/27/2022 Office Visit Cardiology Cordell Juarez MD [facility] [address] [phone] (Wo rk) documented as of this encounter Visit Diagnoses Diagnosis Other and unspecified coagulation defect s correction (current) use of anticoagulant s Long-term (current) use of anticoagulant s documented in this encounter
--- OUTSIDE RECORDS SUMMARY | 2022-04-10 10:02 | XMS_ITS | Encounter Summary ---
:2000 Author Organization [place] Address [address] [place] [address]. [place] [address] Care Team Providers Name Role Phone Unavailable Primary Care Provider Unavailable Encounter Details Date Type Department Care Team Description 12/06/2010 Results Only INTERFACED REPORT Unknown, Doctor, Social [...] 07/27/2022 Ancillary Procedure Cardiology Cordell Juarez MD [address] [place], [place] [address] [place] [address] (Wo rk) 07/27/2022 Office Visit Cardiology Cordell Juarez MD [facility] [address] [place], [place] [phone] (Wo rk) documented as of this encounter Procedures Procedure Name Priority Date/Time Associated Diagnosis Comme nts EKG 12-LEAD, Routine 12/06/2010 10:16 AM Results for this TRACING ONLY CDT procedure are i n the results section. documented in this encounter Results EKG 12-lead, tracing only (12/06/2010 10:16 AM CDT) Component Value Ref Range Test Analysis Performed Pathologis t Method Time At Signature Ventricular Rate 71 BPM RADIOLOGY RESULTS Atrial Rate 71 BPM RADIOLOGY RESULTS MO Interval 132 ms RADIOLOGY RESULTS QRS Duration 82 ms RADIOLOGY RESULTS QT 394 ms RADIOLOGY RESULTS QTc 428 ms RADIOLOGY RESULTS P [place] -8 degrees RADIOLOGY RESULTS R AXIS -90 degrees RADIOLOGY RESULTS T [place] 74 degrees RADIOLOGY RESULTS Interpretation * RADIOLOGY ECG Pediatric ECG RESULTS Analysis * Interpretation Sinus rhythm RADIOLOGY ECG RESULTS Interpretation Left axis RADIOLOGY ECG deviation RESULTS Interpretation Right RADIOLOGY ECG ventricular RESULTS hypertrophy with strain pattern Specimen (Source) Anatomical Collection Method Collection Time Re ceived Time Location / / Volume Laterality 12/06/2010 10:16 AM CDT Doctor Unknown MD ECG ORDERABLES Performing Organization Address City/State/ZIP Code Phon e Number RADIOLOGY RESULTS documented in this encounter Visit Diagnoses Not on filedocumented in this encounter
--- OUTSIDE RECORDS SUMMARY | 2022-04-10 10:02 | XMS_ITS | Encounter Summary ---
:2000 Author Organization [place] Address [address] [place] [address] Care Team Providers Name Role Phone Unavailable Primary Care Provider Unavailable Reason for Visit Reason Onset Date Comments Anticoagulation 05/23/2011 Encounter Details Date Type Department Care Team Description 05/23/2011 Telephone [facility] Madhavi Del Real RN Anticoagulation Anticoagulation Clin [address] [phone] Social History Tobacco Use Types Packs/Day Years Used Date Smoking Tobacco: Never Comments: none at home Alcohol Use Standard Drinks/Week Comments Not Asked 0 (1 standard drink = 0.6 oz pure alcoho l) Sex Assigned at Date Recorded Male 03/09/2019 1:21 PM CDT documented as of this encounter Miscellaneous Notes Telephone Encounter - Madhavi Del Real RN - 05/23/2011 12:03 PM CST Current Warfarin Regimen 2.5 mgs (1 @ 2.5 mg) TuF <---> 5 mgs (2 @ 2.5 mg) MWThSaSu Current INR Value 1.30 done at [facility] Desired Lab Goal Range 2.00 - 2.50 Assessment Sub Bleeding Episodes ... Fell on ice yesterday and has a fist sized hematoma on his murray. He saw his MD Clotting Episodes ..... No Medication Changes Mom reports missed doses Diet Changes .............. No Health Changes ......... Has a colitis flare currently New Recommended Warfarin Regimen: 2.5 mgs (1 @ 2.5 mg) TuF <---> 5 mgs (2 @ 2.5 mg) MWThSaSu (05/23/2011 - 7.5 mg) Minimal dose change in light of hematoma and colitis Next Scheduled labs: 05/29/2011 Results Given To: Spoke with Jaimie colunga Results Given By: MADHAVI DEL REAL RN RUNNER documented in this encounter Plan of Treatment Upcoming Encounters Date Type Specialty Care Team Description 07/27/2022 Ancillary Procedure Cardiology Cordell Juarez MD [address] [facility] [address] [place], [place] [phone] (Arleen valdes) 07/27/2022 Office Visit Cardiology Cordell Juarez MD [address] [facility] [address] [place], [place] [address] (Arleen valdes) documented as of this encounter Visit Diagnoses Not on filedocumented in this encounter
--- OUTSIDE RECORDS SUMMARY | 2022-04-10 10:02 | XMS_ITS | Encounter Summary ---
:2000 Author Organization [place] Address [address] [place] [address]. [place] [address] Care Team Providers Name Role Phone Unavailable Primary Care Provider Unavailable Encounter Details Date Type Department Care Team Description 04/02/2011 Orders Only [facility] Cordell Juarez HYPO PLASTIC LEFT Pediatric Specialty HEART SYND (Primary Clinic [address] Dx) [address] [facility] [place] [phone] Social History Tobacco Use Types Packs/Day Years [...] Ancillary Procedure Cardiology Cordell Juarez MD [address] [place] [address] [address] [place] [address] (Wo rk) 07/27/2022 Office Visit Cardiology Cordell Juarez MD [address] [place] [address] [address] [place] [address] (Wo rk) documented as of this encounter Visit Diagnoses Diagnosis 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
--- OUTSIDE RECORDS SUMMARY | 2022-04-10 10:02 | XMS_ITS | Encounter Summary ---
:2000 Author Organization [place] Address [address] [place] [address]. [place] [address] Care Team Providers Name Role Phone Unavailable Primary Care Provider Unavailable Reason for Visit Reason Onset Date Comments Refill Request 05/18/2011 Encounter Details Date Type Department Care Team Description 05/18/2011 Refill [facility] Pediatric Cordell Juarez MD Refill Request Specialty Clinic [address] [phone] [facility] [place] [address] [facility] [place] [address] [phone] Social History Tobacco Use Types Packs/Day Years [...] 07/27/2022 Ancillary Procedure Cardiology Cordell Juarez MD [address] [place], [place] [address] [place] [address] (Wo rk) 07/27/2022 Office Visit Cardiology Larry, Cordell skelton MD [address] [place] [address] (Wo rk) documented as of this encounter Visit Diagnoses Not on filedocumented in this encounter
--- OUTSIDE RECORDS SUMMARY | 2022-04-10 10:02 | XMS_ITS | Encounter Summary ---
:2000 Author Organization [place] Address [facility] [place] [address] Care Team Providers Name Role Phone Unavailable Primary Care Provider Unavailable Encounter Details Date Type Department Care Team Description 08/21/2010 Hospital Laboratory [facility] Dominga Ngo [facility] MD [facility] GASTRO[facility]OLOGY [address] [facility] [address] [place] [address] [phone] Social History Tobacco Use Types Packs/Day Years [...] 07/27/2022 Ancillary Procedure Cardiology Cordell Juarez MD [address] [place] [address] (Wo rk) 07/27/2022 Office Visit Cardiology Cordell Juarez MD [address] [place] [address], [place] [address] (Wo rk) documented as of this encounter Procedures Procedure Name Priority Date/Time Associated Diagnosis Comme nts SEND OUTS MISC TEST Routine 08/21/2010 5:30 PM Re sults for this DOCTOR OF NATUROPATHIC MEDICINE procedure are i n the results section. documented in this encounter Results Send outs misc test (08/21/2010 5:30 PM DOCTOR OF NATUROPATHIC MEDICINE) Analysis Performed At Patho logist Time Signature Lab Scanned SEND OUTS MISYS Result MISC TEST-Scann ed Specimen (Source) Anatomical Collection Method Collection Time Re ceived Time Location / / Volume Laterality 08/21/2010 5:30 PM DOCTOR OF NATUROPATHIC MEDICINE Dominga Ngo MD LAB - BLOOD ORDERABLES Performing Organization Address City/State/ZIP Code Phon e Number MISYS documented in this encounter Visit Diagnoses Not on filedocumented in this encounter
--- OUTSIDE RECORDS SUMMARY | 2022-04-10 10:02 | XMS_ITS | Encounter Summary ---
:2000 Author Organization [place] Address [address] [place] [address] Care Team Providers Name Role Phone Unavailable Primary Care Provider Unavailable Encounter Details Date Type Department Care Team Description 12/14/2010 Orders Only [facility] Ot er and unspecified coagulation defects; [facility] Encounter for long-term (cur rent) use of anticoagulants [address] [place] [address] Social History Tobacco Use Types [...] Care Team Description 07/27/2022 Ancillary Procedure Cardiology Regi Juarez MD [facility] [place] [address] [phone] (Wo rk) 07/27/2022 Office Visit Cardiology Regi Juarez MD [address] [place] [address] [place], [place] [phone] (Arleen valdes) documented as of this encounter Procedures Procedure Name Priority Date/Time Associated Diagnosis Comme nts INR Routine 12/14/2010 11:08 AM Other and unspecified Results for this CDT coagulation defe cts procedure are in Encounter for long-term the results (current) use of section. anticoagulants documented in this encounter Results (ABNORMAL) INR (12/14/2010 11:08 AM CDT) P athologist Signature INR 3.00 (H) 0.86 - 1.14 [facility] Comment: FAXED TO [facility], DR REGI JUAREZ, [place] T [phone] Specimen Anatomical Collection Method Collection Time Receive d Time (Source) Location / / Volume Laterality Blood specimen 12/14/2010 11:08 1 (specimen) AM CDT 11:09 AM CDT Jacky Stephenson MD LAB - BLOOD ORDERABLES Performing Organization Address City/State/ZIP Code Phon e Number [facility] [address] [place], [place] [phone] [facility] documented in this encounter Visit Diagnoses Diagnosis Other and unspecified coagulation defect s penitentiary (current) use of anticoagulant s Long-term (current) use of anticoagulant s documented in this encounter
--- OUTSIDE RECORDS SUMMARY | 2022-04-10 10:02 | XMS_ITS | Encounter Summary ---
:2000 Author Organization [place] Address [facility] [place] [address] Care Team Providers Name Role Phone Unavailable Primary Care Provider Unavailable Reason for Visit Reason Onset Date Comments Refill Request 08/29/2010 focalin Encounter Details Date Type Department Care Team Description 08/28/2010 MyC Refill [facility] Ignacio Solo Refi ll Request Clinic Meir DUPREE (focalin) [address] [place] [address] [phone] (Wo rk) Social History Tobacco Use Types Packs/Day Years Used Date Smoking Tobacco: Never Comments: none at home Alcohol Use Standard Drinks/Week Comments Not Asked 0 (1 standard drink = 0.6 oz pure alcoho l) Sex Assigned at Date Recorded Male 03/09/2019 1:21 PM CDT documented as of this encounter Miscellaneous Notes Telephone Encounter - Nu Zimmerman - 08/29/2010 10:10 AM CDT Last o/v 05/10/10. Mom is requesting more than 1 month refill if possible. Nu Zimmerman RN Telephone Encounter - Nu Zimmerman Marquis - 08/29/2010 10:03 AM CDT Message from [employer]: Jude Bills would like a refill of the following medications: dexmethylphenidate (FOCALIN XR) 10 MG 24 hr capsule [Ignacio Gauravjuan Roseannetyrell] Preferred pharmacy: [facility] Comment: This message is being sent by Jaimie Bills on behalf of Jude Fisher it possible to get more than 30 day supply at a time for this medication? I am rarely up in [place]. I have to brain picker the paper script from the clinic and walk it across the fish to the pharmacy to wait for it to be filled each month. Please let me know. Thank you,Jaimie (mom) [phone] documented in this encounter Plan of Treatment Upcoming Encounters Date Type Specialty Care Team Description 07/27/2022 Ancillary Procedure Cardiology Cordell Juarez MD [address] [place] [address] (Wo rk) 07/27/2022 Office Visit Cardiology Cordell Juarez MD [address] [place] [address] (Wo rk) documented as of this encounter Visit Diagnoses Diagnosis Attention deficit disorder with hyperact ivity(314.01) - Primary Attention deficit disorder with hyperact ivity documented in this encounter
--- OUTSIDE RECORDS SUMMARY | 2022-04-10 10:02 | XMS_ITS | Encounter Summary ---
:2000 Author Organization [place] Address [address] [place] [address] Care Team Providers Name Role Phone Unavailable Primary Care Provider Unavailable Reason for Visit Reason Onset Date Comments Anticoagulation 03/27/2011 Encounter Details Date Type Department Care Team Description 03/27/[address] [facility] Vanessa Prado Anticoagulation Anticoagulation Clin A, [facility] [address] [place], [place] [phone] Social History Tobacco Use Types Packs/Day Years Used Date Smoking Tobacco: Never Comments: none at home Alcohol Use Standard Drinks/Week Comments Not Asked 0 (1 standard drink = 0.6 oz pure alcoho l) Sex Assigned at Date Recorded Male 03/09/2019 1:21 PM CDT documented as of this encounter Miscellaneous Notes Telephone Encounter - Marisabel Prado, PharmD - 03/27/2011 3:24 PM CDT Current Warfarin Regimen 2.5 mgs (1 @ 2.5 mg) MTuWThFSaSu (03/23 and 03/24 - 5 mg) Current INR Value 1.30 Desired Lab Goal Range 2.00 - 2.50 Assessment Sub Bleeding Episodes ... No Clotting Episodes ..... No Medication Changes Missed dose 03/26 Diet Changes .............. No Health Changes ......... Mom believes there might be some absorption issues due to his colitis. New Recommended Warfarin Regimen: 5 mgs (2 @ 2.5 mg) MTuWThFSaSu Next Scheduled labs: 03/30/2011 Results Given To: Olu with Jaimie Results Given By: Marisabel Prado PHARMD documented in this encounter Plan of Treatment Upcoming Encounters Date Type Specialty Care Team Description 07/27/2022 Ancillary Procedure Cardiology Cordell Juarez MD [address] [facility] [address] [place], [place] [address] (Wo rk) 07/27/2022 Office Visit Cardiology Cordell Juarez MD [address] [facility] [address] [place], [place] [address] (Wo rk) documented as of this encounter Visit Diagnoses Not on filedocumented in this encounter
--- OUTSIDE RECORDS SUMMARY | 2022-04-10 10:02 | XMS_ITS | Encounter Summary ---
:2000 Author Organization [facility] Address [address] [place] [address] Care Team Providers Name Role Phone Unavailable Primary Care Provider Unavailable Encounter Details Date Type Department Care Team Description 07/26/2010 Office Visit-[facility] INTERFACE [facility] DEPT Provider, [facility] Nurs e Social History Tobacco Use Types Packs/Day Years Used Date Smoking Tobacco: Never Comments: none at home Alcohol Use Standard Drinks/Week Comments Not Asked 0 (1 standard drink = 0.6 oz pure alcoho l) Sex Assigned at Date Recorded Male 03/09/2019 1:21 PM CDT documented as of this encounter Progress Notes Provider, [facility] Nurse - 07/26/2010 1:15 PM CST Government Affairs Manager: Delicia Izaguirre Status: Final Encounter: 26 Jul 2010 Type: Rooming Note Informant Parent is informant unless otherwise noted. Reason For Visit Hypoplastic left heart Do you have any other appointments, tests or procedures within the [facility] system for this same day? No. Pain Eval Current history of pain associated with this visit is denied. Vital Signs Position for height measurement: standing Blood pressure taken with: electronic BP machine. Recorded by Delicia Izaguirre on 26 Jul 2010 01:21 PM BP:111/73, RUE, Sitting, HR: 98 b/min, Resp: 20 r/min, Height: 130.4 cm, Weight: 26.5 kg, BMI: 15.6 kg/m2, O2 Sat: 98 (%SpO2). Immunizations Immunizations are reported as current. Allergies Captopril TABS. Current Meds Focalin XR 10 MG Capsule Extended Release 24 Hour;TAKE 1 CAPSULE DAILY.; RPT Digoxin 0.125 MG Tablet;TAKE 1 TABLET DAILY.; Rx Lisinopril 10 MG Tablet;TAKE 1/2 TABLET DAILY.; Rx Asacol 400 MG Tablet Delayed Release;TAKE 2 TABLETS TWICE DAILY; Rx AAA-MED RECONCILE;per mother; RPT. Signature Signed By: Delicia Izaguirre RN; 07/26/2010 1:28 PM [employer]. documented in this encounter Plan of Treatment Upcoming Encounters Date Type Specialty Care Team Description 07/27/2022 Ancillary Procedure Cardiology Cordell Juarez MD [address] [place], [place] [phone] (Arleen valdes) 07/27/2022 Office Visit Cardiology Cordell Juarez MD [address] [place], [place] [phone] (Arleen valdes) documented as of this encounter Visit Diagnoses Not on filedocumented in this encounter
--- OUTSIDE RECORDS SUMMARY | 2022-04-10 10:02 | XMS_ITS | Encounter Summary ---
:2000 Author Organization [place] Address [address] [place] [address] Care Team Providers Name Role Phone Unavailable Primary Care Provider Unavailable Reason for Visit Reason Onset Date Comments Anticoagulation 03/30/2011 Encounter Details Date Type Department Care Team Description 03/30/2011 Telephone [facility] Bayron Page , Anticoagulation Anticoagulation Clin ic [facility] [address] [place], [place] [phone] [facility] [phone] [address] [facility] [address] [place] [address] (Wo rk) Social History Tobacco Use Types Packs/Day Years Used Date Smoking Tobacco: Never Comments: none at home Alcohol Use Standard Drinks/Week Comments Not Asked 0 (1 standard drink = 0.6 oz pure alcoho l) Sex Assigned at Date Recorded Male 03/09/2019 1:21 PM CDT documented as of this encounter Miscellaneous Notes Telephone Encounter - Surendra Dalal - 03/30/2011 10:06 AM CDT Current Warfarin Regimen 5 mgs (2 @ 2.5 mg) MTuWThFSaSu Current INR Value 2.30 Desired Lab Goal Range 2.00 - 2.50 Assessment Ther Bleeding Episodes ... No Clotting Episodes ..... No Medication Changes No Diet Changes .............. No Health Changes ......... No New Recommended Warfarin Regimen: 2.5 mgs (1 @ 2.5 mg) MWF <---> 5 mgs (2 @ 2.5 mg) Torsten Next Scheduled labs: 04/04/2011 Results Given To: Spoke with Jaimie il Results Given By: Surendra Dalal PharmD IV/Aamir Page [facility] documented in this encounter Plan of Treatment Upcoming Encounters Date Type Specialty Care Team Description 07/27/2022 Ancillary Procedure Cardiology [facility]arez [facility] [address] [facility] [address] [address] [place], [place] [address] (Arleen rk) 07/27/2022 Office Visit Cardiology Cordell Juarez MD [address] [facility] [address] [place], [place] [address] (Arleen valdes) documented as of this encounter Visit Diagnoses Not on filedocumented in this encounter
--- OUTSIDE RECORDS SUMMARY | 2022-04-10 10:02 | XMS_ITS | Encounter Summary ---
:2000 Author Organization [facility] Address [address] [place] [address] Care Team Providers Name Role Phone Unavailable Primary Care Provider Unavailable Reason for Visit Reason Onset Date Comments Anticoagulation 05/30/2011 Encounter Details Date Type Department Care Team Description 05/30/2011 Telephone [facility] Madhavi Del Real RN Anticoagulation Anticoagulation Clin [address] [phone] Social History Tobacco Use Types Packs/Day Years Used Date Smoking Tobacco: Never Comments: none at home Alcohol Use Standard Drinks/Week Comments Not Asked 0 (1 standard drink = 0.6 oz pure alcoho l) Sex Assigned at Date Recorded Male 03/09/2019 1:21 PM CDT documented as of this encounter Miscellaneous Notes Telephone Encounter - Madhavi Del Real RN - 05/30/2011 10:10 AM CST Current Warfarin Regimen 2.5 mgs (1 @ 2.5 mg) TuF <---> 5 mgs (2 @ 2.5 mg) MWThSaSu 7.5 mg Sat06/02/11 Current INR Value 3.80 done at [facility] Lab Desired Lab Goal Range 2.00 - 2.50 Assessment Supra Bleeding Episodes ... No Clotting Episodes ..... No Medication Changes No Diet Changes .............. No Health Changes .........Crohns has settled down , Hematoma is resolving New Recommended Warfarin Regimen: 2.5 mgs (1 @ 2.5 mg) TuFSu <---> 5 mgs (2 @ 2.5 mg) MWThSa (05/30/2011 - Hold Warfarin) Next Scheduled labs: 06/05/2011 Results Given To: Spoke with Irineo Etienne Results Given By: MADHAVI DEL REAL RN STANT PROFESSOR OF BIOLOGY documented in this encounter Plan of Treatment Upcoming Encounters Date Type Specialty Care Team Description 07/27/2022 Ancillary Procedure Cardiology Cordell Juarez MD [address] [place] [address] (Wo rk) 07/27/2022 Office Visit Cardiology Cordell Juarez MD [address] [place] [address] (Arleen rk) documented as of this encounter Visit Diagnoses Not on filedocumented in this encounter
--- OUTSIDE RECORDS SUMMARY | 2022-04-10 10:02 | XMS_ITS | Encounter Summary ---
:2000 Author Organization [place] Address [address] [place] [address] Care Team Providers Name Role Phone Unavailable Primary Care Provider Unavailable Reason for Visit Reason Onset Date Comments Anticoagulation 06/07/2011 Encounter Details Date Type Department Care Team Description 06/07/2011 Telephone [facility] Bayron Page , Anticoagulation Anticoagulation Clin ic [facility] [address] [place], [place] [phone] [facility] [phone] [place] [address] [address] [place] [address] (Wo rk) Social History Tobacco Use Types Packs/Day Years Used Date Smoking Tobacco: Never Comments: none at home Alcohol Use Standard Drinks/Week Comments Not Asked 0 (1 standard drink = 0.6 oz pure alcoho l) Sex Assigned at Date Recorded Male 03/09/2019 1:21 PM CDT documented as of this encounter Miscellaneous Notes Telephone Encounter - Bayron Page [facility] - 06/07/2011 11:59 AM CST Current Warfarin Regimen 2.5 mgs (1 @ 2.5 mg) TuFSu <---> 5 mgs (2 @ 2.5 mg) MWThSa (05/30/2011 - Hold Warfarin) Current INR Value 2.30 Desired Lab Goal Range 2.00 - 2.50 Assessment Ther Bleeding Episodes ... No Clotting Episodes ..... No Medication Changes No Diet Changes .............. No Health Changes ......... No New Recommended Warfarin Regimen: 2.5 mgs (1 @ 2.5 mg) TuFSu <---> 5 mgs (2 @ 2.5 mg) MWThSa Next Scheduled labs: 06/20/2011 Results Given To: Spoke with patient's Mom Results Given By: Aamir Page RPH DE TECHNICIAN documented in this encounter Plan of Treatment Upcoming Encounters Date Type Specialty Care Team Description 07/27/2022 Ancillary Procedure Cardiology Cordell Juarez MD [address] [place], [place] [phone] (Wo lucio) 07/27/2022 Office Visit Cardiology Cordell Juarez MD [address] [place], [place] [address] (Wo lucio) documented as of this encounter Visit Diagnoses Not on filedocumented in this encounter
--- OUTSIDE RECORDS SUMMARY | 2022-04-10 10:02 | XMS_ITS | Encounter Summary ---
:2000 Author Organization Early Address [facility]0 [facility] [address] Care Team Providers Name Role Phone Unavailable Primary Care Provider Unavailable Encounter Details Date Type Department Care Team Description 08/21/2010 Historic Results [facility] Dominga Ngo [facility] Pediatric MD [facility] GASTRO[facility]OLOGY [address] [facility] [address] [place] [address] [place], [place] [phone] (Wo rk) [address] [phone] Social History Tobacco Use Types Packs/Day Years [...] Ancillary Procedure Cardiology Cordell Juarez MD [address] [place], [place] [id number] [place], [place] [address] (Wo rk) 07/27/2022 Office Visit Cardiology Cordell Juarez MD [address] [place], [place] [phone] [place] [address] (Wo rk) documented as of this encounter Procedures Procedure Name Priority Date/Time Associated Comments Diagnosis SEND OUTS MISC TEST Routine 08/21/2010 5:30 PM Re sults for this [facility] procedure are i n the results section. CLOSTRIDIUM DIFFICILE Routine 08/21/2010 5:30 PM Results for this TOXIN B [facility] procedure are i n the results section. ALPHA 1 ANTITRYPSIN Routine 08/21/2010 5:30 PM Re sults for this STOOL [facility] procedure are i n the results section. documented in this encounter Results Send outs misc test (08/21/2010 5:30 PM [facility]) [facility] [employer] Method Time Signature Test Name FECAL MISYS CALPROTECTIN Send Outs Feces MISYS Misc Test Specimen Normal Range SEE REPORT MISYS for Send Outs Misc Test Lab Scanned Laboratory MISYS Result Scanned Result [id number] Specimen Anatomical Collection Method Collection Time Receive d Time (Source) Location / / Volume Laterality 08/21/2010 5:30 PM 1 6:21 [facility] PM [facility] Dominga Ngo MD LAB - BLOOD ORDERABLES Performing Organization Address City/[facility] Code Phon e Number MISYS Alpha 1 antitrypsin stool (08/21/2010 5:30 PM [facility] [employer] AR[facility]) P athologist Signature Xpupc-[id number] 0.24 MISYS p Stool Comment: Reference range: 0.00 to 0.62 Unit: mg/g (Note) Performed by [employer], [address] [place] [id number] [email or web address], Chanell Berrios MD, Lab. Director Specimen Anatomical Collection Method Collection Time Receive d Time (Source) Location / / Volume Laterality 08/21/2010 5:30 PM 1 6:21 [facility] PM [facility] Dominga Ngo MD LAB - STOOLS ORDERABLES Performing Organization Address City/[facility]/ZIP Code Phon e Number MISYS Clostridium difficile toxin B PCR (08/21/2010 5:30 PM [facility] [employer]) [facility] gist Method Time Signature Specimen Feces MISYS Description C Diff Toxin B Negative: MISYS PCR Clostridium difficile target DNA sequences NOT detected, presumed Comment: negative for Clostridium difficile toxi n B or the number of bacteria present may be below the limit of detection for the test. FDA approved assay performed using [employer] GeneXpert real-time PCR. A negative result does not exclude actu al disease due to Clostridium difficile and may be due to improper collection, handling and storage of the specimen or the number of organisms in the specimen is below the detection limit of the assay. Specimen Anatomical Collection Method Collection Time Receive d Time (Source) Location / / Volume Laterality 08/21/2010 5:30 PM 1 6:21 [facility] PM [facility] Dominga Griselda Ngo MD LAB - MICRO GENERAL ORDERABL ES Performing Organization Address City/State/ZIP Code Phon e Number MISYS documented in this encounter Visit Diagnoses Not on filedocumented in this encounter
--- OUTSIDE RECORDS SUMMARY | 2022-04-10 10:02 | XMS_ITS | Encounter Summary ---
:2000 Author Organization [place] Address [address] [place] [address] Care Team Providers Name Role Phone Unavailable Primary Care Provider Unavailable Encounter Details Date Type Department Care Team Description 10/02/2010 Office Visit-[facility] DE[facility] Patty Ngo MD [place] [facility] [address] [facility] [address] [place], [place] [phone] (Wo rk) Social History Tobacco Use Types Packs/Day Years Used Date Smoking Tobacco: Never Comments: none at home Alcohol Use Standard Drinks/Week Comments Not Asked 0 (1 standard drink = 0.6 oz pure alcoho l) Sex Assigned at Date Recorded Male 03/09/2019 1:21 PM CDT documented as of this encounter Progress Notes Dominga Ngo - 10/02/2010 2:00 PM CDT [employer] Dominga Status: Final - Signature Encounter: 2010-10-02 14:00:00.000 Type: Peds GI Letter documented in this encounter Plan of Treatment Upcoming Encounters Date Type Specialty Care Team Description 07/27/2022 Ancillary Procedure Cardiology Larry, Cordell Barajas MD [address] [facility] [address] [address] [place] [address] (Wo rk) 07/27/2022 Office Visit Cardiology Cordell Juarez MD [address] [place] [address] (Wo rk) documented as of this encounter Visit Diagnoses Not on filedocumented in this encounter
--- OUTSIDE RECORDS SUMMARY | 2022-04-10 10:02 | XMS_ITS | Encounter Summary ---
:2000 Author Organization [place] Address [facility] [place] [address] Care Team Providers Name Role Phone Unavailable Primary Care Provider Unavailable Encounter Details Date Type Department Care Team Description 10/30/2010 Hospital Laboratory [facility] Cordell Juarez, [facility] Results [facility] [place] [phone] (Wo rk) Social History Tobacco Use Types [...] Ancillary Procedure Cardiology Cordell Juarez MD [address] [place] [phone] (Wo rk) 07/27/2022 Office Visit Cardiology Cordell Juarez MD [address] [place] [phone] (Wo rk) documented as of this encounter Procedures Procedure Name Priority Date/Time Associated Comments Diagnosis CBC WITH PLATELETS & Routine 10/30/2010 1:00 PM R esults for this DIFFERENTIAL CDT procedure are i n the results section. INR Routine 10/30/2010 1:00 PM Results f or this CDT procedure are i n the results section. documented in this encounter Results (ABNORMAL) INR (10/30/2010 1:00 PM CDT) P athologist Signature INR 1.19 (H) 0.86 - 1.14 [facility] Specimen Anatomical Collection Method Collection Time Receive d Time (Source) Location / / Volume Laterality 10/30/2010 1:00 PM 1 1:11 CDT PM CDT Cordell Juarez MD LAB - BLOOD ORDERABLES Performing Organization Address City/State/ZIP Code Phon e Number M [place] [address] [address] [place] [address] [facility] LAB CBC with platelets differential (10/30/2010 1:00 PM CDT) Patholo gist Method Time Signature WBC 5.0 4.0 - [place] 11.0 [facility] 10e9/L [facility] RBC Count 4.72 3.7 - 5.3 [place] 10e12/L [facility] Hemoglobin 13.3 11.7 - [place] 15.7 g/dL [facility] Hematocrit 38.6 35.0 - [facility] 47.0 % [facility] MCV 82 77 - 100 [place] fl [facility] MCH 28.2 26.5 - [place] 33.0 pg [facility] MCHC 34.5 31.5 - [place] 36.5 g/dL [facility] RDW 13.7 10.0 - [facility] 15.0 % [facility] Platelet Count 245 150 - 450 [place] 10e9/L [facility] Diff Method Automated [facility] % Neutrophils 49.0 32 - 64 % [facility] % Lymphocytes 38.4 26 - 50 % [facility] % Monocytes 9.4 0 - 12 % [facility] % Eosinophils 1.4 0 - 6 % [facility] % Basophils 1.8 0 - 2 % [facility] Absolute 2.5 1.3 - 7.0 [place] Neutrophil 10e9/L [facility] Absolute 1.9 1.0 - 5.8 [place] Lymphocytes 10e9/L [facility] Absolute 0.5 0.0 - 1.3 [place] Monocytes 10e9/L [facility] Absolute 0.1 0.0 - 0.7 [place] Eosinophils 10e9/L [facility] Absolute 0.1 0.0 - 0.2 [place] Basophils 10e9/L [facility] Reactive Lymphs Present [facility] RBC Morphology Consistent [place] with [facility] Platelet Normal [facility] Specimen Anatomical Collection Method Collection Time Receive d Time (Source) Location / / Volume Laterality 10/30/2010 1:00 PM 1 1:11 CDT PM CDT Cordell Juarez MD LAB - BLOOD ORDERABLES Performing Organization Address City/State/ZIP Code Phon e Number M [facility] [address] [place] [address] documented in this encounter Visit Diagnoses Not on filedocumented in this encounter
--- OUTSIDE RECORDS SUMMARY | 2022-04-10 10:02 | XMS_ITS | Encounter Summary ---
:2000 Author Organization [place] Address [facility]0 [facility] [place] [address] Care Team Providers Name Role Phone Unavailable Primary Care Provider Unavailable Encounter Details Date Type Department Care Team Description 12/06/[address] [facility] Rudy Juarez MD Hospital Results [address] [place], [place] [phone] (Wo rk) Social History Tobacco Use Types [...] 07/27/2022 Ancillary Procedure Cardiology Cordell Juarez MD [address] [place] [phone] (Wo rk) 07/27/2022 Office Visit Cardiology Cordell Juarez MD [address] [place] [phone] (Wo rk) documented as of this encounter Procedures Procedure Name Priority Date/Time Associated Diagnosis Comme nts ECHO PEDIATRIC Routine 12/06/2010 10:50 AM Result s for this COMPLETE CDT procedure are i n the results section. documented in this encounter Results Echo pediatric complete (12/06/2010 10:50 AM CDT) Anatomical Region Laterality Modality Echocardiography Specimen (Source) Anatomical Collection Method Collection Time Re ceived Time Location / / Volume Laterality 12/06/2010 10:50 AM CDT Impressions 12/07/2010 1:43 PM CDT PEDIATRIC ECHOCARDIOGRAM ?? [facility] ? ?Echocardiogram Lab ? Age: ??1 ? Wt: ? Ht: ? BSA: ?BP: ? Xcelera ? [employer] Handicapper: ??kb INDICATION: ? A cardiac ultrasound study based on an e xam which included: M-Mode ?2-D ? Doppler ? Color Flow CONCLUSION: ?? 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 Mildly depressed right ventricular systolic fun ction. Mild tricuspid regurgitation. Laminar flow visualized i n both the Fortino and Fontan. No residual fenestration seen after liliam ce closure fenestration. ?? TWO-D ECHO: Recordings are performed from parasterna l, apical, subcostal and suprasternal notch windows. 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 He also underwent device closure of a Fo ntan fenestration. ??Aortic and tricuspid valve motions are normal. There is mildly depressed right ventricular function. There is no evidence of pericardial effusion. The pulmonary artery bifurcati on is not well visualized in this study. The aortic arch appears wide ly patent. ? Not Evaluated The coronary arteries were not evaluated . ? Doppler Report Color flow and spectral Doppler are util ized. There is mild tricuspid regurgitation. Normal flows are recorded in the ascending aorta and in the descending thoracic aorta. There is laminar flow visualized in both the Fortino and Fontan. There is no r esidual Fontan fenestration visualized in this study. 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 ?? Artemio Silva MD-Pager [phone] ?? Gayathri Ayala MD-Pager [phone] ?? Jorge Link MD-Pager [phone] or Cordell Juarez MD-Pager [phone] ?? Jayson Bailey MD-Pager [phone] Aga Rucker MD-Pager [phone] 0 Cordell Juarez MD CV PEDS ECHO ORDERABLES documented in this encounter Visit Diagnoses Not on filedocumented in this encounter
--- OUTSIDE RECORDS SUMMARY | 2022-04-10 10:02 | XMS_ITS | Encounter Summary ---
:2000 Author Organization [place] Address [facility]0 [facility] [place] [address] Care Team Providers Name Role Phone Unavailable Primary Care Provider Unavailable Encounter Details Date Type Department Care Team Description 07/26/2010 Office Visit-[facility] Cordell Juarez MD [facility] [address] [place] [address] Specialty Clinic [address] [place] [address] [facility] [address] [place] [address] [place] [address] Social History Tobacco Use Types Packs/Day Years Used Date Smoking Tobacco: Never Comments: none at home Alcohol Use Standard Drinks/Week Comments Not Asked 0 (1 standard drink = 0.6 oz pure alcoho l) Sex Assigned at Date Recorded Male 03/09/2019 1:21 PM CDT documented as of this encounter Progress Notes Cordell Juarez - 07/26/2010 1:15 PM CST Agent Telegrapher: Cordell Juarez Status: Final - Signature Encounter: 2010-07-26 13:15:00.000 Type: Peds Cardiology Letter R PORTABLE BOILER documented in this encounter Plan of Treatment Upcoming Encounters Date Type Specialty Care Team Description 07/27/2022 Ancillary Procedure Cardiology Cordell Juarez MD [address] [place], [place] [address] (Wo rk) 07/27/2022 Office Visit Cardiology Cordell Juarez MD [address] [place], [place] [address] (Wo rk) documented as of this encounter Visit Diagnoses Not on filedocumented in this encounter
--- OUTSIDE RECORDS SUMMARY | 2022-04-10 10:02 | XMS_ITS | Encounter Summary ---
:2000 Author Organization [place] Address [facility] [place] [address] Care Team Providers Name Role Phone Unavailable Primary Care Provider Unavailable Encounter Details Date Type Department Care Team Description 12/06/2010 Hospital Laboratory [facility] Cordell Juarez, [facility] Results [facility] [place] [address] (Wo rk) Social History Tobacco Use Types [...] Ancillary Procedure Cardiology Cordell Juarez MD [address] [place] [phone] (Wo rk) 07/27/2022 Office Visit Cardiology Cordell Juarez MD [address] [place] [address] [phone] (Wo rk) documented as of this encounter Procedures Procedure Name Priority Date/Time Associated Diagnosis Comme nts INR Routine 12/06/2010 12:03 PM Results for this CDT procedure are i n the results section. CBC WITH PLATELETS Routine 12/06/2010 12:03 PM Re sults for this CDT procedure are i n the results section. documented in this encounter Results (ABNORMAL) INR (12/06/2010 12:03 PM CDT) athologist Signature INR 1.47 (H) 0.86 - 1.14 [facility] Specimen Anatomical Collection Method Collection Time Receive d Time (Source) Location / / Volume Laterality 12/06/2010 12:03 12/06/2010 PM CDT 12:04 PM CDT Cordell Juarez MD LAB - BLOOD ORDERABLES Performing Organization Address City/[facility]/ZIP Code Phon e Number M [facility] [address] [place] [address] [facility] CBC with platelets (12/06/2010 12:03 PM CDT) athologist Signature WBC 6.2 4.0 - 11.0 [place] 10e9/L [facility] RBC Count 5.25 3.7 - 5.3 [place] 10e12/L [facility] Hemoglobin 14.4 11.7 - [facility] 15.7 g/dL [facility] Hematocrit 43.1 35.0 - [facility] 47.0 % [facility] MCV 82 77 - 100 [place] fl [facility] MCH 27.4 26.5 - [facility] 33.0 pg [facility] MCHC 33.4 31.5 - [facility] 36.5 g/dL [facility] RDW 13.6 10.0 - [facility] 15.0 % [facility] Platelet Count 282 150 - 450 [place] 10e9L [facility] Specimen Anatomical Collection Method Collection Time Receive d Time (Source) Location / / Volume Laterality 12/06/2010 12:03 12/06/2010 PM CDT 12:04 PM CDT Cordell Juarez MD LAB - BLOOD ORDERABLES Performing Organization Address City/[facility]/ZIP Code Phon e Number M [facility] [address] [place], [place] 5533 [facility] documented in this encounter Visit Diagnoses Not on filedocumented in this encounter
--- OUTSIDE RECORDS SUMMARY | 2022-04-10 10:02 | XMS_ITS | Encounter Summary ---
:2000 Author Organization [place] Address [address] [facility] [place] [address] Care Team Providers Name Role Phone Unavailable Primary Care Provider Unavailable Reason for Referral Specialty Diagnoses / Procedures Referred By Contact Refer red To Contact Cordell Juarez M D [address] [facility] [address] [place], [place] [address] Referral ID Status Reason Start Date Expiration Date Visits Requ ested Visits Authorized Scheduling Instructions ANTICOAGULATION CLINIC COLLABORATIVE PRA CTICE AGREEMENT The following represents a collaborative practice agreement among the physicians of the Clinic and staff of the Anticoagulat ion Clinic Service ([facility]) Physicians shall: 1. Refer patients requiring anticoagulat ion to a specialty service staffed by personnel of Pharmacy Services and super vised by Clinic physicians. 2. Respond to questions and referrals fr pharmacy staff regarding delinquent or difficult patients. 3. Inform the [facility] staff when a new patie nt [...] adverse or sub-therapeutic effects including at evy st the following: Has the patient experienced any [...] Details Date Type Department Care Team Description 02/07/2011 Orders Only [facility] Cordell Juarez for Anticoagulation Clin marisabel Barajas MD long-term (current) [address] [place] [address] use of anticoagulants [place], [place] [address] (Primary Dx) [address] [place], [place] [phone] Social History Tobacco Use Types Packs/Day Years [...] Ancillary Procedure Cardiology Cordell Juarez MD [address] [place] [address] [address] [place] [address] (Wo rk) 07/27/2022 Office Visit Cardiology Cordell Juarez MD [address] [facility] [address] [place] [address] (Wo rk) Scheduled Referrals Name Type Priority Associated Diagnoses Order S chedule INR CLINIC REFERRAL Referral Routine Encounter for long-te rm Ordered: 02/07/2011 (current) use of anticoagulants documented as of this encounter Visit Diagnoses Diagnosis long-term (current) use of anticoagulant s - Primary Long-term (current) use of anticoagulant s documented in this encounter
--- OUTSIDE RECORDS SUMMARY | 2022-04-10 10:02 | XMS_ITS | Encounter Summary ---
:2000 Author Organization [place] Address [address] [place] [address]. [place] [address] Care Team Providers Name Role Phone Unavailable Primary Care Provider Unavailable Reason for Visit Reason Onset Date Comments Anticoagulation 03/23/2011 Encounter Details Date Type Department Care Team Description 03/23/2011 Telephone [facility] Bayron Page , Anticoagulation Anticoagulation Clin ic [facility] [address] [place], [place] [phone] [facility] [phone] [address] [facility] [address] [place] [address] (Wo rk) Social History Tobacco Use Types Packs/Day Years Used Date Smoking Tobacco: Never Comments: none at home Alcohol Use Standard Drinks/Week Comments Not Asked 0 (1 standard drink = 0.6 oz pure alcoho l) Sex Assigned at Date Recorded Male 03/09/2019 1:21 PM CDT documented as of this encounter Miscellaneous Notes Telephone Encounter - Kobe Young - 03/23/2011 12:52 PM CDT Current Warfarin Regimen 2.5 mgs (2?? @ 1 mg) [id number] Current INR Value 1.20 Desired Lab Goal Range 2.00 - 2.50 Assessment Sub Bleeding Episodes ... No Clotting Episodes ..... No Medication Changes - has missed doses of his focalin in the past week Diet Changes .............. No Health Changes ......... No New Recommended Warfarin Regimen: 2.5 mgs (1 @ 2.5 mg) [id number] (03/23/2011 - 5 mg; 03/24/2011 - 5 mg) Next Scheduled labs: 03/27/2011 Results Given To: Patient's motherJaimie Results Given By: Kobe Young PharmD IV documented in this encounter Plan of Treatment Upcoming Encounters Date Type Specialty Care Team Description 07/27/2022 Ancillary Procedure Cardiology Cordell Juarez MD [address] [place] [address] (Wo rk) 07/27/2022 Office Visit Cardiology Cordell Juarez MD [address] [place] [address] (Wo rk) documented as of this encounter Visit Diagnoses Not on filedocumented in this encounter
--- OUTSIDE RECORDS SUMMARY | 2022-04-10 10:02 | XMS_ITS | Encounter Summary ---
:2000 Author Organization [place] Address [address] [place] [address] Care Team Providers Name Role Phone Unavailable Primary Care Provider Unavailable Encounter Details Date Type Department Care Team Description 12/06/2010 Office Visit-[facility] DEPT Unknown, Provider Social History Tobacco Use Types Packs/Day Years Used Date Smoking Tobacco: Never Comments: none at home Alcohol Use Standard Drinks/Week Comments Not Asked 0 (1 standard drink = 0.6 oz pure alcoho l) Sex Assigned at Date Recorded Male 03/09/2019 1:21 PM CDT documented as of this encounter Progress Notes Unknown, Provider - 12/06/2010 11:00 AM CDT Support Staff: Delicia Izaguirre Status: Final Encounter: 2010-12-06 11:00:00.000 Type: Rooming Note Informant Parent is informant unless otherwise noted. Reason For Visit Here for echo and ekg Do you have any other appointments, tests or procedures within the [facility] system for this same day? yes. Pain Eval Current history of pain associated with this visit is denied. Vital Signs Position for height measurement: standing Blood pressure taken with: electronic BP machine. Recorded by Delicia Izaguirre on 06 Dec 2010 10:09 AM BP:107/60, RUE, Sitting, HR: 84 b/min, Resp: 16 r/min, Height: 132 cm, Weight: 27.7 kg, BMI: 15.9 kg/m2, O2 Sat: 97 (%SpO2). Immunizations Immunizations are reported as current. [...] for 14 days; Rx [facility] RECONCILE;per mother; RPT Warfarin Sodium 2 MG Tablet;TAKE 1 TABLET DAILY DIRECTED.; Rx Warfarin Sodium 1 MG Tablet;TAKE DIRECTED.; Rx. Signature Signed By: Delicia Izaguirre RN; 12/06/2010 10:14 AM MACHINE CLERICAL VERIFIER. documented in this encounter Plan of Treatment Upcoming Encounters Date Type Specialty Care Team Description 07/27/2022 Ancillary Procedure Cardiology Cordell Juarez MD [address] [place] [address] (Arleen valdes) 07/27/2022 Office Visit Cardiology Cordell Juarez MD [address] [place] [address] (Arleen valdes) documented as of this encounter Visit Diagnoses Not on filedocumented in this encounter
--- OUTSIDE RECORDS SUMMARY | 2022-04-10 10:02 | XMS_ITS | Encounter Summary ---
:2000 Author Organization [facility] Address [address] [place] [address]. [place] [address] Care Team Providers Name Role Phone Unavailable Primary Care Provider Unavailable Reason for Visit Reason Onset Date Comments Anticoagulation 01/30/2011 Encounter Details Date Type Department Care Team Description 01/30/2011 Telephone [facility] Bayron Page , Anticoagulation Anticoagulation Clin ic [facility] [address] [place], [place] [phone] [facility] [phone] 420 [facility] [address] [place] [address] (Wo rk) Social History Tobacco Use Types Packs/Day Years Used Date Smoking Tobacco: Never Comments: none at home Alcohol Use Standard Drinks/Week Comments Not Asked 0 (1 standard drink = 0.6 oz pure alcoho l) Sex Assigned at Date Recorded Male 03/09/2019 1:21 PM CDT documented as of this encounter Miscellaneous Notes Telephone Encounter - Lillie Estrada - 01/30/2011 4:23 PM CDT Current Warfarin Regimen 2.5 mg daily Current INR Value 2.00 Desired Lab Goal Range INR 2.00-2.50 Assessment Ther Bleeding Episodes ... No Clotting Episodes ..... No Medication Changes No Diet Changes .............. No Health Changes ......... No New Recommended Warfarin Regimen: continue current regimen of 2.5 mg daily Next Scheduled labs: 02/27/2011 Results Given To: Spoke to Jaimie (mom) Results Given By: DANIELLA Rose/Aamir Page [facility] documented in this encounter Plan of Treatment Upcoming Encounters Date Type Specialty Care Team Description 07/27/2022 Ancillary Procedure Cardiology Cordell Juarez MD [address] [facility] [address] [place], [place] [phone] (Wo rk) 07/27/2022 Office Visit Cardiology Cordell Juarez MD [address] [facility] [address] [place], [place] [address]114 (Wo rk) documented as of this encounter Visit Diagnoses Not on filedocumented in this encounter
--- OUTSIDE RECORDS SUMMARY | 2022-04-10 10:02 | XMS_ITS | Encounter Summary ---
:2000 Author Organization [facility] Address [address] [place] [address] Care Team Providers Name Role Phone Unavailable Primary Care Provider Unavailable Encounter Details Date Type Department Care Team Description 05/30/2011 Orders Only [facility] Magda Del Real Hypop lastic left heart syndrome; Anticoagulation Clin ic L, RN Encounter for long-term (cur rent) use of anticoagulants [address] [place] [phone] Social History Tobacco Use Types Packs/Day Years [...] Ancillary Procedure Cardiology Cordell Juarez MD [address] [place] [address] (Wo rk) 07/27/2022 Office Visit Cardiology Cordell Juarez MD [address] [phone] (Arleen valdes) documented as of this encounter Visit Diagnoses 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
--- OUTSIDE RECORDS SUMMARY | 2022-04-10 10:02 | XMS_ITS | Encounter Summary ---
:2000 Author Organization [facility] Address [address] [place] [address] Care Team Providers Name Role Phone Unavailable Primary Care Provider Unavailable Encounter Details Date Type Department Care Team Description 01/22/2011 Orders Only [facility] Magda Del Real, S/ p Fontan procedure Anticoagulation Clin ic RN (Primary Dx) [address] [place] [phone] Social History Tobacco Use Types Packs/Day [...] Ancillary Procedure Cardiology Cordell Juarez MD [address] [place] [phone] (Wo rk) 07/27/2022 Office Visit Cardiology Cordell Juarez MD [facility] [address] [phone] (Arleen valdes) documented as of this encounter Visit Diagnoses Diagnosis S/P Fontan procedure - Primary Other postprocedural status documented in this encounter
--- OUTSIDE RECORDS SUMMARY | 2022-04-10 10:02 | XMS_ITS | Encounter Summary ---
:2000 Author Organization [facility] Address [address] [place] [address] Care Team Providers Name Role Phone Unavailable Primary Care Provider Unavailable Reason for Visit Reason Onset Date Comments Anticoagulation 05/07/2011 Encounter Details Date Type Department Care Team Description 05/07/2011 Telephone [facility] Bayron Page , Anticoagulation Anticoagulation Clin ic [facility] [address] [place], [place] [phone] [facility] [phone] [place] [address] 812 [place] [address] (Wo rk) Social History Tobacco Use Types Packs/Day Years Used Date Smoking Tobacco: Never Comments: none at home Alcohol Use Standard Drinks/Week Comments Not Asked 0 (1 standard drink = 0.6 oz pure alcoho l) Sex Assigned at Date Recorded Male 03/09/2019 1:21 PM CDT documented as of this encounter Miscellaneous Notes Telephone Encounter - Funmi Yates - 05/07/2011 10:31 AM CST Current Warfarin Regimen 2.5 mgs (1 @ 2.5 mg) MWF <---> 5 mgs (2 @ 2.5 mg) TuThSaSu Current INR Value 1.80 Desired Lab Goal Range 2.00 - 2.50 Assessment Sub Bleeding Episodes ... No Clotting Episodes ..... No Medication Changes No Diet Changes .............. No Health Changes ......... No New Recommended Warfarin Regimen: 2.5 mgs (1 @ 2.5 mg) TuF <---> 5 mgs (2 @ 2.5 mg) MWThSaSu Next Scheduled labs: 05/21/2011 Results Given To: Jaimie Results Given By: Funmi Yates PharmD IV/Aamir Page [facility] BUILDER documented in this encounter Plan of Treatment Upcoming Encounters Date Type Specialty Care Team Description 07/27/2022 Ancillary Procedure Cardiology Cordell Juarez MD [address] [place], [place] [address] (Wo lucio) 07/27/2022 Office Visit Cardiology Cordell Juarez MD [address] [place], [place] [phone] (Arleen valdes) documented as of this encounter Visit Diagnoses Not on filedocumented in this encounter
--- OUTSIDE RECORDS SUMMARY | 2022-04-10 10:02 | XMS_ITS | Encounter Summary ---
:2000 Author Organization [facility] Address [address] [place] [address] Care Team Providers Name Role Phone Unavailable Primary Care Provider Unavailable Encounter Details Date Type Department Care Team Description 07/26/2010 Historic Results [facility] Alden Juarez MD Cardiology 2450 [facility] [address] [place] [address] [place], [place] [phone] (Wo rk) Social History Tobacco Use Types [...] Ancillary Procedure Cardiology Cordell Juarez MD [address] [place] [phone] (Wo rk) 07/27/2022 Office Visit Cardiology Cordell Juarez MD [facility] [address] [phone] (Wo rk) documented as of this encounter Procedures Procedure Name Priority Date/Time Associated Comments Diagnosis IGG Routine 07/26/2010 3:40 PM Results f or this HEATING AND BLENDING SUPERVISOR procedure are i n the results section. CBC WITH PLATELETS & Routine 07/26/2010 3:40 PM R esults for this DIFFERENTIAL HEATING AND BLENDING SUPERVISOR procedure are i n the results section. TSH Routine 07/26/2010 3:40 PM Results f or this HEATING AND BLENDING SUPERVISOR procedure are i n the results section. T4 FREE Routine 07/26/2010 3:40 PM Results f or this HEATING AND BLENDING SUPERVISOR procedure are i n the results section. N TERMINAL PRO BNP Routine 07/26/2010 3:40 PM Res ults for this OUTPATIENT HEATING AND BLENDING SUPERVISOR procedure are i n the results section. CRP INFLAMMATION Routine 07/26/2010 3:40 PM Resul ts for this HEATING AND BLENDING SUPERVISOR procedure are i n the results section. COMPREHENSIVE Routine 07/26/2010 3:40 PM Results for this METABOLIC PANEL HEATING AND BLENDING SUPERVISOR procedure ar e in the results section. documented in this encounter Results (ABNORMAL) CBC with platelets differential (07/26/2010 3:40 PM HEATING AND BLENDING SUPERVISOR) athologist Signature MCV 82 77 - 100 [place] fl MCH 27.6 26.5 - [facility] 33.0 pg MCHC 33.9 31.5 - [facility] 36.5 g/dL RDW 13.2 10.0 - [place] 15.0 % WBC 7.2 4.0 - 11.0 [facility] 10e9/L RBC Count 5.10 3.7 - 5.3 [facility] 10e12/L Hemoglobin 14.1 11.7 - [facility] 15.7 g/dL Hematocrit 41.6 35.0 - [facility] 47.0 % % Neutrophils 59.0 32 - 64 % [facility] % Lymphocytes 30.0 26 - 50 % [facility] % Monocytes 9.0 0 - 12 % [facility] % Eosinophils 1.0 0 - 6 % [facility] % Basophils 1.0 0 - 2 % [facility] Platelet Count 116 (L) 150 - 450 [facility] 10e9/L Comment: Platelets clumped Reported result may be falsely decreased . ??Plt estimation is 160 Absolute Neutrophil 4.2 1.3 - 7.0 10e9/L MIS YS Absolute Lymphocytes 2.2 1.0 - 5.8 10e9/L CT SYS Absolute Monocytes 0.6 0.0 - 1.3 10e9/L MISY S Absolute Eosinophils 0.1 0.0 - 0.7 10e9/L CT SYS Absolute Basophils 0.1 0.0 - 0.2 10e9/L MISY S Platelet Estimate Normal [facility] Diff Method Manual Method [facility] RBC Morphology Consistent with reported results [facility] Reactive Lymphs Present [facility] Specimen Anatomical Collection Method Collection Time Receive d Time (Source) Location / / Volume Laterality 07/26/2010 3:40 PM 1 3:29 HEATING AND BLENDING SUPERVISOR PM HEATING AND BLENDING SUPERVISOR Cordell Juarez MD LAB - BLOOD ORDERABLES Performing Organization Address City/State/ZIP Code Phon e Number [facility] (ABNORMAL) Comprehensive metabolic panel (07/26/2010 3:40 PM HEATING AND BLENDING SUPERVISOR) P athologist Signature Sodium 139 133 - 143 [place] mmol/L Potassium 4.5 3.4 - 5.3 [place] mmol/L Chloride 104 98 - 110 [place] mmol/L Carbon Dioxide 25 20 - 32 [place] mmol/L Glucose 84 60 - 99 [place] mg/dL Urea Nitrogen 16 5 - 24 [place] mg/dL Creatinine 0.48 0.39 - 0.73 [facility] mg/dL Comment: New IDMS-traceable calibration beginning 10/16/07 GFR Estimate GFR not calculated, patient <16 mL/min/1.7m2 [facility] years old. GFR Estimate If Black GFR not calculated, patient <16 mL/min/1.7m2 [facility] years old. Calcium 10.2 8.7 - 10.8 mg/dL [facility] AST 41 0 - 50 U/L [facility] Protein Total 8.4 6.8 - 8.8 g/dL [facility] Anion Gap 10 6 - 17 mmol/L [facility] Albumin 5.4 (H) 3.9 - 5.1 g/dL [place] ALT 36 0 - 50 U/L [facility] Alkaline Phosphatase 274 130 - 530 U/L [place] Bilirubin Total 0.5 0.2 - 1.3 mg/dL [facility] Specimen Anatomical Collection Method Collection Time Receive d Time (Source) Location / / Volume Laterality 07/26/2010 3:40 PM 1 3:29 HEATING AND BLENDING SUPERVISOR PM HEATING AND BLENDING SUPERVISOR Cordell Juarez MD LAB - BLOOD ORDERABLES Performing Organization Address City/State/ZIP Code Phon e Number [facility] CRP inflammation (07/26/2010 3:40 PM HEATING AND BLENDING SUPERVISOR) P athologist Signature CRP Inflammation <5.0 0.0 - 8.0 [place] mg/L Specimen Anatomical Collection Method Collection Time Receive d Time (Source) Location / / Volume Laterality 07/26/2010 3:40 PM 1 3:29 HEATING AND BLENDING SUPERVISOR PM HEATING AND BLENDING SUPERVISOR Cordell Juarez MD LAB - BLOOD ORDERABLES Performing Organization Address City/State/ZIP Code Phon e Number [place] T4 free (07/26/2010 3:40 PM HEATING AND BLENDING SUPERVISOR) athologist Signature T4 Free 1.27 0.70 - 1.85 [place] ng/dL Specimen Anatomical Collection Method Collection Time Receive d Time (Source) Location / / Volume Laterality 07/26/2010 3:40 PM 1 3:29 HEATING AND BLENDING SUPERVISOR PM HEATING AND BLENDING SUPERVISOR Cordell Juarez MD LAB - BLOOD ORDERABLES Performing Organization Address City/[facility]/ZIP Code Phon e Number [facility] IgG (07/26/2010 3:40 PM HEATING AND BLENDING SUPERVISOR) athologist Signature IGG 1320 695 - 1620 [place] mg/dL Specimen Anatomical Collection Method Collection Time Receive d Time (Source) Location / / Volume Laterality 07/26/2010 3:40 PM 1 3:29 HEATING AND BLENDING SUPERVISOR PM HEATING AND BLENDING SUPERVISOR Cordell Juarez MD LAB - BLOOD ORDERABLES Performing Organization Address City/[facility]/ZIP Code Phon e Number [facility] N terminal pro BNP outpatient (07/26/2010 3:40 PM HEATING AND BLENDING SUPERVISOR) athologist Signature N-Terminal Pro 73 0 - 240 [facility] Bnp pg/mL Specimen Anatomical Collection Method Collection Time Receive d Time (Source) Location / / Volume Laterality 07/26/2010 3:40 PM 1 3:29 HEATING AND BLENDING SUPERVISOR PM HEATING AND BLENDING SUPERVISOR Cordell Juarez MD LAB - BLOOD ORDERABLES Performing Organization Address City/State/ZIP Code Phon e Number [facility] TSH (07/26/2010 3:40 PM HEATING AND BLENDING SUPERVISOR) athologist Signature TSH 3.91 0.4 - 5.0 [facility] mU/L Specimen Anatomical Collection Method Collection Time Receive d Time (Source) Location / / Volume Laterality 07/26/2010 3:40 PM 1 3:29 HEATING AND BLENDING SUPERVISOR PM HEATING AND BLENDING SUPERVISOR Cordell Juarez MD LAB - BLOOD ORDERABLES Performing Organization Address City/State/ZIP Code Phon e Number [facility] documented in this encounter Visit Diagnoses Not on filedocumented in this encounter
--- OUTSIDE RECORDS SUMMARY | 2022-04-10 10:02 | XMS_ITS | Encounter Summary ---
:2000 Author Organization [facility] Address [address] [place] [address] Care Team Providers Name Role Phone Unavailable Primary Care Provider Unavailable Encounter Details Date Type Department Care Team Description 03/27/2011 Orders Only [facility] and unspecified coagulation defects; [facility] Encounter for long-term (cur rent) use of anticoagulants [address] [place] [address] Social History Tobacco Use Types [...] Ancillary Procedure Cardiology Cordell Juarez MD [facility] [place] [address] [address] (Wo rk) 07/27/2022 Office Visit Cardiology Cordell Juarez MD [address] [place] [address] [place], [place] [phone] (Arleen valdes) documented as of this encounter Procedures Procedure Name Priority Date/Time Associated Diagnosis Comme nts INR Routine 03/27/2011 11:15 AM Other and unspecified Results for this CDT coagulation defe cts procedure are in Encounter for long-term the results (current) use of section. anticoagulants documented in this encounter Results (ABNORMAL) INR (03/27/2011 11:15 AM CDT) P athologist Signature INR 1.30 (H) 0.86 - 1.14 [facility] Specimen Anatomical Collection Method Collection Time Receive d Time (Source) Location / / Volume Laterality Blood specimen 03/27/2011 11:15 1 (specimen) AM CDT 11:20 AM CDT Jacky Stephenson MD LAB - BLOOD ORDERABLES Performing Organization Address City/State/ZIP Code Phon e Number [facility] [address] [place] [address] [facility] documented in this encounter Visit Diagnoses Diagnosis Other and unspecified coagulation defect s [facility] (current) use of anticoagulant s Long-term (current) use of anticoagulant s documented in this encounter
--- OUTSIDE RECORDS SUMMARY | 2022-04-10 10:02 | XMS_ITS | Encounter Summary ---
:2000 Author Organization [facility] Address [address] [place] [address] Care Team Providers Name Role Phone Unavailable Primary Care Provider Unavailable Reason for Visit Reason Onset Date Comments Anticoagulation 05/31/2011 Encounter Details Date Type Department Care Team Description 05/31/2011 Telephone [facility] Magda Del Real, RN Anticoagulation Anticoagulation Clin [address] [phone] Social History Tobacco Use Types Packs/Day Years Used Date Smoking Tobacco: Never Comments: none at home Alcohol Use Standard Drinks/Week Comments Not Asked 0 (1 standard drink = 0.6 oz pure alcoho l) Sex Assigned at Date Recorded Male 03/09/2019 1:21 PM CDT documented as of this encounter Miscellaneous Notes Telephone Encounter - Magda Del Real RN - 05/31/2011 12:59 PM CST Mom Jaimie called to report she had Luke in the ER in [place] last PM. The hematoma on his leg wasgetting larger and he was c/o abdominal and leg pain. The INR in the AM 05/30/11 was 3.8 in the ER in the PM it was 2.9. Instructed mom to continue with the plan put in place in the AM 05/30/11 when wespoke. Warfarin was held last PM 05/30/11 as planned 2.5 mg TuFSu 5 mg all other days of week INR on 06/05/11 Jude is currently in the nurse's office at school with abdominal pain. Mom thinks it may be crohns again MERCE MANAGER documented in this encounter Plan of Treatment Upcoming Encounters Date Type Specialty Care Team Description 07/27/2022 Ancillary Procedure Cardiology Cordell Juarez MD [address] [place] [address] (Wo rk) 07/27/2022 Office Visit Cardiology Cordell Juarez MD [address] [place] [address] (Wo rk) documented as of this encounter Visit Diagnoses Not on filedocumented in this encounter
--- OUTSIDE RECORDS SUMMARY | 2022-04-10 10:02 | XMS_ITS | Encounter Summary ---
:2000 Author Organization [facility] Address [address] [place] [address] Care Team Providers Name Role Phone Unavailable Primary Care Provider Unavailable Reason for Visit Reason Onset Date Comments Anticoagulation 06/21/2011 Encounter Details Date Type Department Care Team Description 06/21/2011 Telephone [facility] Bayron Page , Anticoagulation Anticoagulation Clin ic [facility] [address] [place], [place] [phone] [facility] [phone] [place] [address] 812 [place] [address] (Wo rk) Social History Tobacco Use Types Packs/Day Years Used Date Smoking Tobacco: Never Comments: none at home Alcohol Use Standard Drinks/Week Comments Not Asked 0 (1 standard drink = 0.6 oz pure alcoho l) Sex Assigned at Date Recorded Male 03/09/2019 1:21 PM CDT documented as of this encounter Miscellaneous Notes Telephone Encounter - Bayron Page [facility] - 06/21/2011 10:27 AM CST Current Warfarin Regimen 2.5 mgs (1 @ 2.5 mg) TuFSu <---> 5 mgs (2 @ 2.5 mg) MWThSa Current INR Value 3.70 Desired Lab Goal Range 2.00 - 2.50 Assessment Supra Bleeding Episodes ... No Clotting Episodes ..... No Medication Changes No Diet Changes .............. No Health Changes ......... No New Recommended Warfarin Regimen: 2.5 mgs (1 @ 2.5 mg) TuWThSaSu <---> 5 mgs (2 @ 2.5 mg) MF Next Scheduled labs: 07/04/2011 Results Given To: Spoke with patient's Mom Jaimie. She said that Jude had not been taking his meds correctly recently which could explain his last INRs being not as controlled as they should. Results Given By: aAmir Page RP LE NEEDLE OPERATOR LOCKSTITCH documented in this encounter Plan of Treatment Upcoming Encounters Date Type Specialty Care Team Description 07/27/2022 Ancillary Procedure Cardiology Cordell Juarez MD [address] [facility] [address] [place], [place] [phone] (Arleen valdes) 07/27/2022 Office Visit Cardiology Cordell Juarez MD [address] [place], [place] [phone] (Arleen valdes) documented as of this encounter Visit Diagnoses Not on filedocumented in this encounter
--- OUTSIDE RECORDS SUMMARY | 2022-04-10 10:02 | XMS_ITS | Encounter Summary ---
:2000 Author Organization [facility] Address [address] [place] [address] Care Team Providers Name Role Phone Unavailable Primary Care Provider Unavailable Encounter Details Date Type Department Care Team Description 07/26/2010 Historic Results INTERFACED REPORT Interface, Hetal modi MD Social History Tobacco Use Types Packs/Day Years [...] Ancillary Procedure Cardiology Cordell Juarez MD [address] [place] [phone] (Wo rk) 07/27/2022 Office Visit Cardiology Cordell Juarez MD [address] [place] [phone] (Wo rk) documented as of this encounter Procedures Procedure Name Priority Date/Time Associated Diagnosis Comme nts EKG 12 LEAD Routine 07/26/2010 1:26 PM Results f or this BASKETBALL COACH procedure are i n the results section . documented in this encounter Results EKG 12 LEAD (07/26/2010 1:26 PM BASKETBALL COACH) Component Value Ref Range Test Analysis Performed Pathologis t Method Time At Signature Ventricular Rate 83 BPM RADIOLOGY RESULTS Atrial Rate 83 BPM RADIOLOGY RESULTS ID Interval 138 ms RADIOLOGY RESULTS QRS Duration 76 ms RADIOLOGY RESULTS QT 346 ms RADIOLOGY RESULTS QTc 406 ms RADIOLOGY RESULTS P [place] 65 degrees RADIOLOGY RESULTS R AXIS -81 degrees RADIOLOGY RESULTS T [place] 72 degrees RADIOLOGY RESULTS Interpretation * Pediatric ECG Analysis * RADIOLOGY ECG Sinus rhythm RESULTS Left axis deviation Right ventricular hypertrophy Specimen Anatomical Collection Method Collection Time Receive d Time (Source) Location / / Volume Laterality 07/26/2010 1:26 PM 1 3:30 BASKETBALL COACH PM BASKETBALL COACH Transcripton Interface ECG ORDERABLES Performing Organization Address City/State/ZIP Code Phon e Number RADIOLOGY RESULTS documented in this encounter Visit Diagnoses Not on filedocumented in this encounter
--- OUTSIDE RECORDS SUMMARY | 2022-04-10 10:02 | XMS_ITS | Encounter Summary ---
:2000 Author Organization [facility] Address [address] [place] [address] Care Team Providers Name Role Phone Unavailable Primary Care Provider Unavailable Reason for Visit Reason Comments Anticoagulation Encounter Details Date Type Department Care Team Description 03/23/2011 Allied Health/Nurse [facility] Anticoagulation Visit [address] [phone] Social History Tobacco Use Types Packs/Day Years Used Date Smoking Tobacco: Never Comments: none at home Alcohol Use Standard Drinks/Week Comments Not Asked 0 (1 standard drink = 0.6 oz pure alcoho l) Sex Assigned at Date Recorded Male 03/09/2019 1:21 PM CDT documented as of this encounter Progress Notes Reyna Cummings - 03/23/2011 11:25 AM CDT ANTICOAGULATION FOLLOW-UP CLINIC VISIT Patient Name: Jude Bills Date: 03/23/2011 SUBJECTIVE: Bleeding Signs/Symptoms: None Thromboembolic Signs/Symptoms: None Medication Changes: No Dietary Changes: No Bacterial/Viral Infection: No Missed Coumadin Doses: None Other Concerns: Pt is much more active now that school is in session (physical education sessions, recess). Monitored thru [employer], has INR done here for convenience only. ASSESSMENT/PLAN: See: ANTICOAGULATION Q[facility] flow sheet. CR ANTICOAGULATION CLINIC documented in this encounter Plan of Treatment Upcoming Encounters Date Type Specialty Care Team Description 07/27/2022 Ancillary Procedure Cardiology Cordell Juarez MD [address] [place] [address] (Wo rk) 07/27/2022 Office Visit Cardiology Cordell Juarez MD [address] [facility] [address] [place], [place] [address] (Wo rk) documented as of this encounter Procedures Procedure Name Priority Date/Time Associated Diagnosis Comme nts INR POINT OF CARE Routine 03/23/2011 Encounter for long-term Results for this (current) use of procedure a re in the anticoagulants results secti on. documented in this encounter Results (ABNORMAL) INR point of care (03/23/2011) P athologist Signature INR Point of 1.2 (A) 0.86 - [facility] BILLING Care 1.14 LAB Ignacio Solo MD LAB - BLOOD ORDERABLES Performing Organization Address City/State/ZIP Code Phon e Number [facility] documented in this encounter Visit Diagnoses Diagnosis group home (current) use of anticoagulant s - Primary Long-term (current) use of anticoagulant s documented in this encounter
--- OUTSIDE RECORDS SUMMARY | 2022-04-10 10:03 | XMS_ITS | Encounter Summary ---
:2000 Author Organization [facility] Address [facility] [place] [address] Care Team Providers Name Role Phone Unavailable Primary Care Provider Unavailable Encounter Details Date Type Department Care Team Description 05/15/2010 Office Visit-[facility] Building [facility] 1st Floor, [address] [place] [address] [place] [address] [facility] [place] [address] Social History Tobacco Use Types Packs/Day Years Used Date Smoking Tobacco: Never Comments: none at home Alcohol Use Standard Drinks/Week Comments Not Asked 0 (1 standard drink = 0.6 oz pure alcoho l) Sex Assigned at Date Recorded Male 03/09/2019 1:21 PM CDT documented as of this encounter Progress Notes Rachelle Yoder - 05/15/2010 9:00 AM CST Blueprint Reader: Rachelle Yoder Status: Final - Signature Encounter: 15 May 2010 Type: ONC Letter Division of Hematology, Oncology and Blood and Marrow Transplantation Department of Pediatrics [place] Mail Code 605 [address] [facility] [place] [address] Office: [phone] [facility] First Floor, [address] [place] [address] May 15, 2010 Ignacio Solo M.D. [facility] [address] [place], [facility] [address] [place] [address] RE: Jude Bills : 2000 MARTHA: 05/15/[address] Solo: Jude Bills was seen in the Pediatric Hematology Clinic to reconsult him for new bleeding symptoms. Jude has had problems since February with bits of blood in his stool. Jude also had a very large bruise develop on his left forearm last week prompting referral to myself to reevaluate him since my last evaluation in 2005. Jude is a 10-year-old boy with a very complex medical history. He was adopted at approximately 16 months of age from [place]. 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 A central shunt was placed at 18 months of age followed by bilateral Fortino anastomosis. In 2002, he had an extracardiac Fontan performed at the [facility]. He underwent device occlusion of the Fontan fenestration in January 2007. Jude has been maintained on a series of cardiac medications, including aspirin, since that time. 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 Splenic function is normal, but he underwent a Bossman procedure with in March 2006. Jude had malrotation of the duodenum, jejunum, and large intestine and hadan unremarkable procedure. Jude has noted these bits of blood in his stool since February. He says these look like small dots in the stool all the time. He does have some blood on the tissue paper when he wipes himself after stooling. He notices his stools have started floating and sometimes sinking. He occasionally has abdominal pain which is on either side of the incision to the right of the umbilicus. He cannot characterize the quality, but it seems to last about a half hour at a time. He does not notice any change to thequality of his stools at the time he has the pain, and the pain is not alleviated by anything he canrecall. Jude says it hurts more when he pushes on his stomach when he is having the discomfort. He is not having any reflux, burps, or vomiting. His mother is vigilant for protein- losing enteropathy and has not noticed any associated increase in swelling at the time. In terms of his other bleeding sites, he has not had any bleeding from the nose, gums, or in the urine. He has always bruised somewhat easily, per his mom, and attributable to the aspirin she believes. The concern about his clotting status comes about today as a consequence of a large bruise that developed on the left forearm when he fell against the chalk sorto on a grease board at school. He says he tripped on a chair and fell intothe structure which was bolted to the wall. It developed a scrape and a raised center to a fairly large bruise which they have been watching since last week. He has had no fever, no weight loss, and nochanges in exercise tolerance. Review of Systems: Mom says Jude is slowly gaining weight. There has been no yellowing of the eyes, but there is occasional eyelid edema. He has had no nosebleeds, congestion, or cough. There has been no wheezing. From a cardiac perspective, Jude last saw Dr. Juarez in July of 2009 who felt that he was relatively asymptomatic, growing and developing well, and had an unremarkable metabolic panel, thyroid function panel, and BNP. She did note he should continue to use amoxicillin for antibiotic prophylaxis for endocarditis with dental cleanings but should not have activity restriction. From a GI per spective, the history is noted as above. From a perspective, he has no blood in his urine or urgency to his urinary pattern. There has been no swelling to the joints and no involvement of the jointswith bleeding. He has eczema which waxes and wanes, and he has occasional hives with one occurring behind his left ear last week. From a neurologic and psychiatric perspective, he does not have seizures but does have ADHD and is on Focalin. From an endocrine perspective, Jude has had normal thyroid function panel and has no trouble with diabetes. Past medical history is as outlined above. In terms of his bleeding history, mother describes in November of 2002 following the Fontan he had prominent scalp swelling which was boggy from just over the forehead to the nape of the neck. There was no known history of trauma. CT scans revealed a fluid collection was extracranial, and he was on aspirin at that time. The swelling persisted for approximately ten days, the aspirin was stopped, and the swelling subsided within 48 hours of stopping the aspirin. Jude had circumcision in April 2005 because of fungal foreskin infections. Adhesions were lysed, and he developed bleeding in the PACU which persisted and worsened following discharge. He was given Humate-P with pressure dressing, Gelfoam, and improvement of the bleeding in the emergency room that night. Past family medical history is irrelevant. Jude was adopted in 2002 from [place]. From a social perspective, Jude lives at home with his parents. His mother brings him to clinic today. On physical examination, Jude was well developed and well nourished. Weight was 26.3 kg and height 130 cm. Pulse was 80, respiratory rate was 18, blood pressure was 108/68, and temperature was 97.6. Oxygen saturation was 97% on room air. There was no conjunctival injection and no scleral icterus. Pupils were equal, round, and reactive to light. There was no swelling residual from the left postauricular hive. There was no significant cervical, supraclavicular, axillary, or groin adenopathy. There wasno oozing or bleeding from his nares. There was no oozing or bleeding in his oropharynx, and his teeth were nicely brushed. Chest was clear without crackles or wheezes. Cardiac exam revealed a normal S1 and a single S2. There was a grade 2 over 6 systolic ejection murmur at the left upper sternal border and a 1 to 2 over 6 rumbling at the right lower sternal border which was not appreciated by Dr. Juarez earlier. I am unclear as to the significance, if any. Pulses were easily palpable in all extremities. Toes and fingers were all warm, and there was no clubbing. There was no significant edema with only very minor ridging with his sock ribbing about his ankles. Abdomen was soft and nontender with a well healed abdominal incision. There was no palpable liver edge and no palpable spleen tip. The abdomen was completely without tenderness or masses. Examination of the extremities revealed a 5 to 6 cm bruise over the left supinator forearm. There was a 2 cm fullness at the center and a linear excoriation through the length of that fullness. The bruise was in approximately the four to five day discoloration stage with dissipation of clear borders and a light purple color fading to green. There were some small bruises over the right anterior murray and occasional small scattered bruises on the right arm. Jude's diet, which includes a lot of spicy foods, chips, hot red pepper, and Tabasco, may be contributing enough capsaicin to be interfering with platelet function in addition to the 81 mg of aspirin he takes daily. He does not eat a lot of garlic for its antiplatelet effect and does not eat a lot of seafood for the fish oil antiplatelet effect. He eats a lot of red meat. He likes broccoli, corn, beans, and citrus fruits, so I doubt he has a vitamin K deficient diet. Nevertheless, I am concerned hisstools are now floating and wonder if he has a component of fat malabsorption or if he just has a lot of fat in his diet. I discussed Jude with Dr. Jasper Wayne who did his original Bossman procedure and o utlined his history of dots of blood in his stool, blood on the paper when he wipes, and the pain onthe right side of the umbilicus which seems to come and go. Although he may have some minor adhesions which are causing intermittent discomfort, Dr. Wayne would not do a laparoscopic lysis of adhesions until Jude has evaluation by gastroenterology and very possibly a lower endoscopy. Since Jude also says he occasionally has burning in his stomach and with stooling, I suspect he may have a fissure or hemorrhoid, perhaps exacerbated by the spicy foods that he eats. He clearly does have a very largebruise but is on aspirin and may have additional antiplatelet effects from the capsaicin in the spicy foods he prefers. I doubt he has hepatic dysfunction without a palpable liver, and I doubt he has protein-losing enteropathy without any edema, which would potentially cause loss of clotting factors. Nevertheless, I am doing a panel of screening coagulation tests along with clotting factors and a screen for acquired von Willebrand disease. I am doing platelet closure tests to screen for aspirin effect. I am also checking baseline liver function tests, albumin, and antithrombin to make sure there isno protein-losing enteropathy. I will also be checking a CBC to be sure he is not becoming iron deficient with this blood loss. Should all these be essentially noncontributory in explaining his abdomina l pain and lower abdominal bleeding, Dr. Wayne would suggest Jude be seen by gastroenterology, and the choice of referral would be left up to you and Dr. Juarez. Thank you very much for allowing me to reconsult on Jude. I will apprise you of the results as they become available. If there are any questions or concerns, please do not hesitate to call or contact me. Sincerely, Rachelle Yoder M.D. Industrial Arts Teacher of Pediatrics Division of Hematology, Oncology, and Transplantation NB- Jude's evaluation shows no explaination for bleeding tendency other than aspirin effect on his platelets. I would suggest he be evaluated by a loader machine as per Dr. Wayne's comments noted above. MS:11 cc: Cordell Juarez MD Pediatric Cardiology [facility] 94 Jostin Wayne M.D. Electronically signed by:Rachelle Yoder M.D. May 22 2010 3:03PM RUBBISH COLLECTOR Author Reviewed by:Cordell Juarez M.D. May 24 2010 1:51PM RUBBISH COLLECTOR Reviewed by:Jostin Wayne M.D.,PhD Jun 01 2010 8:14AM RUBBISH COLLECTOR ISH COLLECTOR documented in this encounter Plan of Treatment Upcoming Encounters Date Type Specialty Care Team Description 07/27/2022 Ancillary Procedure Cardiology Cordell Juraez MD [address] [place] [address] (Wo lucio) 07/27/2022 Office Visit Cardiology Cordell Juarez MD [address] [place] [address] (Wo lucio) documented as of this encounter Visit Diagnoses Not on filedocumented in this encounter
--- OUTSIDE RECORDS SUMMARY | 2022-04-10 10:03 | XMS_ITS | Encounter Summary ---
:2000 Author Organization [place] Address [address] [place] [address]. [place] [address] Care Team Providers Name Role Phone Unavailable Primary Care Provider Unavailable Encounter Details Date Type Department Care Team Description 06/27/2010 Hospital Pathology [facility] MD Griselda Results MS GASTROENTEROL OGY [address] [place] [address] (Wo rk) Social History Tobacco Use Types [...] 07/27/2022 Ancillary Procedure Cardiology Cordell Juarez MD [facility] [address] [id number] (Wo rk) 07/27/2022 Office Visit Cardiology Cordell Juarez MD [id number] [place], [place] [address] (Wo rk) documented as of this encounter Procedures Procedure Name Priority Date/Time Associated Diagnosis Comme [facility] SURGICAL PATHOLOGY Routine 06/27/2010 12:00 AM Re sults for this EXAM PHP SOFTWARE ENGINEER procedure are i n the results section. documented in this encounter Results Surgical pathology exam (06/27/2010 12:00 AM PHP SOFTWARE ENGINEER) Component Value Ref Test Analysis Performed At [facility] Range Method Time Signature Copath Report Patient Name: JUDE BILLS MR#: [id number] Specimen #: [id number] Collected: 06/27/2010 Received: 06/27/2010 Reported: 06/30/2010 18:05 Ordering Phy(s): DOMINGA ELDER SPECIMEN(S): A: Duodenal biopsy B: Stomach biopsy C: Esophageal biopsy, distal D: Esophageal biopsy, proximal E: Cecal and ascending colon biopsy F: Colon biopsy, transverse and descending G: Rectosigmoid biopsy FINAL DIAGNOSIS: A. ??Duodenum (biopsy): ? - Within normal limits. B. ??Stomach (biopsy): ? - Antral and transitional mucosa with lymphocytic gas tritis. ? - Chronic inflammation, increased intraepithelial lym phocytes and reactive epithelial changes. ? - No Helicobacter pylori is identified. ? - A rare intraepithelial neutrophil. C. ??Distal esophagus (biopsy): ? - Squamous mucosa, within normal limits. ? - Separate cardia-type mucosa with findings consisten t with lymphocytic gastritis. D. ??Proximal esophagus (biopsy): ? - Squamous mucosa, within normal limits. E. ??Cecum and ascending colon (biopsy): ? - Increased intraepithelial lymphocytes. ? - Focal pneumatosis. F. ??Transverse and descending colon (biopsy): ? - No specific pathologic changes. G. ??Rectosigmoid colon (biopsy): ? - Mild chronic inflammation and reactive epithelial c hanges. COMMENT: Dr. Guardado has also reviewed selected slides from this dana e. I have personally reviewed all specimens and or slides, incl uding the listed special stains, and used them with my medical judgeme nt to determine the final diagnosis. Electronically signed out by: King Lee M.D., [facility] CLINICAL HISTORY: 10-year-old male with hematochezia. GROSS: Seven specimens are received, each labeled with the patient' s name and hospital identification number. A. ?Specimen A is designated duode nal. ??The specimen consists of three martinez/yellow tissue fragments ranging in size from 0. 3 to 0.2 cm in greatest dimension. ??All three fragments are submitted i ntact. B. ?Specimen B is designated stomach. ? ?The specimen consists of three yellow/mosley glistening appearing soft tissue fragme nts ranging in size from 0.3 to 0.2 cm in greatest dimension. ??All thre e fragments are submitted intact. C. ?Specimen C is designated distal esop hagus. ??The specimen consists of two yellow/mosley tissue fragments measuring 0.3 a nd 0.2 cm in greatest dimension. ??Both fragments are submitted intact. D. ?Specimen D is designate d proximal esophagus. ??The specimen consists of two yellow/martinez tissue fragments measuring 0.3 an d 0.2 cm in greatest dimension. ??Both fragments are submitted intact. E. ?Specimen E is designated cecum and a scending colon. ??The specimen consists of four yellow/martinez tissue fragments rangin g in size from 0.3 to 0.2 cm in greatest dimension. ??All four fragmen ts are submitted intact. F. ?Specimen F is designated transverse and descending colon. The specimen consists of four yellow/martinez tissue fragments ra nging in size from 0.3 to 0.2 cm in greatest dimension. ??All four fr agments are submitted intact. G. ?Specimen G is designated rectosigmoid. ?? The specimen consists of four yellow/omsley tissue fragments ranging in siz e from 0.3 to 0.2 cm in greatest dimension. ??All four fragments are valdez bmitted intact. Summary of Sections: A - duodenal. B - stomach. C - distal esophagus. D - proximal esophagus. E - cecum and ascending colon. F - transverse and descending colon. G - rectosigmoid. (NADEEM Mejia/carly 06/27/10) MICROSCOPIC: Microscopic examination is performed. Kati Lee M.D. /nan 06/29/10 TESTING LAB LOCATION: [facility], [address] ?? [id number] COLLECTION SITE: Client: [facility] Location: U3C (B) Specimen (Source) Anatomical Collection Method Collection Time Re ceived Time Location / / Volume Laterality 06/27/2010 06/27/2010 2:51 PM PHP SOFTWARE ENGINEER Dominga Griselda B[facility]OP - [facility] Performing Organization Address City/State/ZIP Code Phon e Number COPATH documented in this encounter Visit Diagnoses Not on filedocumented in this encounter
--- OUTSIDE RECORDS SUMMARY | 2022-04-10 10:03 | XMS_ITS | Encounter Summary ---
:2000 Author Organization [place] Address [facility]0 [facility] [place] [address] Care Team Providers Name Role Phone Unavailable Primary Care Provider Unavailable Encounter Details Date Type Department Care Team Description 05/15/[address] [facility]-Camille Petit MD Hospitalists Critical access hospital0 [place], [place] [address] (Wo rk) Social History Tobacco Use Types [...] 07/27/2022 Ancillary Procedure Cardiology Cordell Juarez MD [address] [place] [address] [address] (Wo rk) 07/27/2022 Office Visit Cardiology Cordell Juarez MD [facility] [place] [address] [address] (Wo rk) documented as of this encounter Procedures Procedure Name Priority Date/Time Associated Diagnosis Comme nts SEND OUTS MISC TEST Routine 05/15/2010 10:56 AM R esults for this BALL WORKER procedure are i n the results section. documented in this encounter Results Send outs misc test (05/15/2010 10:56 AM BALL WORKER) Analysis Performed At Patho logist Time Signature Lab Scanned SEND OUTS MISYS Result MISC TEST-Scann ed Specimen (Source) Anatomical Collection Method Collection Time Re ceived Time Location / / Volume Laterality 05/15/2010 10:56 AM BALL WORKER Rachelle Yoder MD LAB - BLOOD ORDERABLES Performing Organization Address City/State/ZIP Code Phon e Number MISYS documented in this encounter Visit Diagnoses Not on filedocumented in this encounter
--- OUTSIDE RECORDS SUMMARY | 2022-04-10 10:03 | XMS_ITS | Encounter Summary ---
:2000 Author Organization [place] Address [address] [place] [address] Care Team Providers Name Role Phone Unavailable Primary Care Provider Unavailable Reason for Visit Reason Onset Date Comments Refill Request 06/15/2010 Focalin XR Encounter Details Date Type Department Care Team Description 06/15/2010 MyC Refill [facility] Ignacio Solo Refi ll Request Clinic Meir DUPREE (Focalin XR) [address] [place] [address] [phone] (Wo rk) Social History Tobacco Use Types Packs/Day Years Used Date Smoking Tobacco: Never Comments: none at home Alcohol Use Standard Drinks/Week Comments Not Asked 0 (1 standard drink = 0.6 oz pure alcoho l) Sex Assigned at Date Recorded Male 03/09/2019 1:21 PM CDT documented as of this encounter Miscellaneous Notes Telephone Encounter - Christa Blackman - 06/15/2010 5:11 PM CST Notified mom through mychart as well as left her a voicemail. Placed prescription at [facility] for chicken picker. Christa Blackman CMA L FISHERMAN Telephone Encounter - Tory Mann - 06/15/2010 4:21 PM CST Rx authorized, please call. L FISHERMAN Telephone Encounter - Nu Zimmerman - 06/15/2010 4:17 PM CST Last o/v 05/10/10. Please call mom's cell when rx is ready for p/u. Nu Zimmerman RN L FISHERMAN Telephone Encounter - Nu Zimmerman - 06/15/2010 4:14 PM PEARL FISHERMAN Message from [employer]: Jude Bills would like a refill of the following medications: dexmethylphenidate (FOCALIN XR) 10 MG 24 hr capsule [Ignacio Solo] Preferred pharmacy: call when script is ready to chicken picker Comment: This message is being sent by Jaimie Bills on behalf of Jude Trimble call my cell when script is ready: [phone] L FISHERMAN documented in this encounter Plan of Treatment Upcoming Encounters Date Type Specialty Care Team Description 07/27/2022 Ancillary Procedure Cardiology Cordell Juarez MD [address] [place], [place] [address] (Wo rk) 07/27/2022 Office Visit Cardiology Cordell Juarez MD [address] [place], [place] [address] (Wo rk) documented as of this encounter Visit Diagnoses Diagnosis Attention deficit disorder with hyperact ivity(314.01) - Primary Attention deficit disorder with hyperact ivity documented in this encounter
--- OUTSIDE RECORDS SUMMARY | 2022-04-10 10:03 | XMS_ITS | Encounter Summary ---
:2000 Author Organization [place] Address [address] [place] [address] Care Team Providers Name Role Phone Unavailable Primary Care Provider Unavailable Reason for Visit Reason Onset Date Comments Refill Request 07/25/2010 focalin Encounter Details Date Type Department Care Team Description 07/25/2010 Refill [facility] Ignacio Solo MD Refill Request Clinic [place] [address] (focalin) [address] [place] [address] [place], [place] [phone] (Wo rk) [address] [phone] Social History Tobacco Use Types Packs/Day Years Used Date Smoking Tobacco: Never Comments: none at home Alcohol Use Standard Drinks/Week Comments Not Asked 0 (1 standard drink = 0.6 oz pure alcoho l) Sex Assigned at Date Recorded Male 03/09/2019 1:21 PM CDT documented as of this encounter Miscellaneous Notes Telephone Encounter - Sarah Jones - 07/25/2010 11:53 AM CST 07/25/10 Called parents. RX at [facility] to be picked up T OFFICE ADMINISTRATOR Telephone Encounter - Ignacio Solo - 07/25/2010 11:46 AM CST rx done T OFFICE ADMINISTRATOR Telephone Encounter - Nu Zimmerman - 07/25/2010 11:45 AM CST Mom calling for RF of Focalin XR. Current dose is working well. Last o/v 05/10/10. Pt is out of medication. Please call mom when rx is ready for p/u. Fyi, mom states that she requested RF through [employer], but no message seen at this time. Nu Zimmerman RN T OFFICE ADMINISTRATOR documented in this encounter Plan of Treatment Upcoming Encounters Date Type Specialty Care Team Description 07/27/2022 Ancillary Procedure Cardiology Cordell Juarez MD [address] [facility] [address] [place], [place] [phone] (Wo rk) 07/27/2022 Office Visit Cardiology Cordell Juarez MD [address] [facility] [address] [place], [place] [phone] (Arleen valdes) documented as of this encounter Visit Diagnoses Diagnosis Attention deficit disorder with hyperact ivity(314.01) Attention deficit disorder with hyperact ivity documented in this encounter
--- OUTSIDE RECORDS SUMMARY | 2022-04-10 10:03 | XMS_ITS | Encounter Summary ---
:2000 Author Organization [place] Address [facility] [place] [address] Care Team Providers Name Role Phone Unavailable Primary Care Provider Unavailable Encounter Details Date Type Department Care Team Description 06/27/2010 Results Only INTERFACED REPORT Derrick Ngo MD [facility] [address] [facility] [address] [place] [address] (Wo rk) Social History Tobacco [...] Cordell Juarez MD [facility] [address] [address] [address] (Wo rk) 07/27/2022 Office Visit Cardiology Cordell Juarez MD [address] [facility] [place], [place] [address] (Wo rk) documented as of this encounter Procedures Procedure Name Priority Date/Time Associated Comments Diagnosis MR LUMBAR SPINE W/O Routine 06/27/2010 2:57 PM Re sults for this CONTRAST EDGE KITTER procedure are i n the results section. COLONOSCOPY Routine 06/27/2010 1:11 PM Results f or this EDGE KITTER procedure are i n the results section. UPPER GI ENDOSCOPY Routine 06/27/2010 12:44 Resul ts for this PM EDGE KITTER procedure are i n the results section. documented in this encounter Results MRI Lumbar spine w/o contrast (06/27/2010 2:57 PM EDGE KITTER) Anatomical Region Laterality Modality Spine, SUBRAD MR MSK, UMP MR SPINE Other Specimen (Source) Anatomical Collection Method Collection Time Re ceived Time Location / / Volume Laterality 06/27/2010 2:57 PM EDGE KITTER Impressions 06/29/2010 10:55 AM EDGE KITTER Lumbar Spine MRI without contrast History: Spina bifida, evaluate Comparison: None Technique: ??Axial T2 and proton-density weighted, and sagittal T1 and T2-weighted images and coronal T2-weight ed images of the lumbar spine without intravenous contrast. Findings: There are 5 type lumbar vertebra, used f or the purposes of this dictation. ??The tip of the conus medull raman is at L1 . The alignment of the lumbar spine is normal . ?? The b one marrow signal intensity appears normal . On a level by level basis, the findings are as follows: L2-3: There is no focal abnormality. L3-4: There is no focal abnormality. L4-5: There is no focal abnormality. L5-S1: There is no focal abnormality. Impression: No focal abnormalities noted within the lumbar spine. I have personally reviewed the image and initial interpretation and agree with the findings. Dominga Ngo MD G MRI ORDERABLES COLONOSCOPY (06/27/2010 1:11 PM EDGE KITTER) Component Value Ref Test Analysis Performed At [facility] Method Time Signature COLONOSCOPY [facility] RADIOLOGY Endoscopy Department-[facility] RESULTS Patient Name: Jude Bills ? Procedure Date: 06/27/2010 01:11:27 PM ? Date of : 2000 ?Admit Type: Outpatient ? Age: 10 ? Room: OR ? Gender: Male ?Note Status: Finalized ? Attending MD: Dominga Ngo MD ? Procedure: ? Colonoscopy Indications: ? Hematochezia Providers: ? Dominga Ngo MD, Chitra Tadeo MD Referring : ? Medicines: ? General Anesthesia Complications: ? No immediate complications Procedure: ? Pre-Anesthesia Assessment: ? - The risks and benefits of the procedure and the ? sedation options and risks were discussed with the ? patient. All questions were answered and informed ? consent was obtained. ? After obtaining informed consent, the colonoscope was ? passed under direct vision. Throughout the procedure, ? the patie nt's blood pressure, pulse, and oxygen ? saturations were monitored continuously. The colonoscopy ? was performed without difficulty. The patient tolerated ? the procedure well. area in sigmoid colon oozed blood ? after passing scope; no definitive lesion was identified ? and stopped without intervent ion ? Findings: ? Perianal examination was normal. Multiple small patchy angiodysplastic ? lesions with no bleeding were found at the splenic flexure. Biopsies ? were taken with a col d forceps for histology. Lympho-nodular hyperplasia ? suspected with slight nodularity, small umbilicated areas of mucosa. ? Impression: ?- Multiple non-bleeding colonic angiodysplastic lesions. Recommendation: ?- Await pathology results. ? Signed electronically by Dr Ngo Dominga Ngo MD Signed Date: 06/27/2010 02:07:34 PM Number of Addenda: 0 I was physically present for the entire viewing portion of t he exam. Signature of teaching physician B4c/D4c Note initiated on 06/27/2010 01:11:27 PM Chitra Tadeo MD Specimen (Source) Anatomical Collection Method Collection Time Re ceived Time Location / / Volume Laterality 06/27/2010 1:11 PM EDGE KITTER Dominga Ngo MD PROCEDURES Performing Organization Address City/State/ZIP Code Phon e Number RADIOLOGY RESULTS UPPER GI ENDOSCOPY (06/27/2010 12:44 PM EDGE KITTER) Component Value Ref Test Analysis Performed At [facility] Range Method Time Signature Upper GI [facility] RADIOLOGY Endoscopy Endoscopy Department-[facility] RESULTS Patient Name: Jude Bills ? Procedure Date: 06/27/2010 12:44:40 PM ? Date of : 2000 ?Admit Type: Outpatient ? Age: 10 ? Room: OR ? Gender: Male ?Note Status: Finalized ? Attending MD: Dominga Ngo MD ? Procedure: ? Upper GI endoscopy Indications: ? Hematochezia, Failure to thrive Providers: ? Dominga Ngo MD, Chitra Tadeo MD Referring : ? Medicines: ? General Anesthesia Complications: ? No immediate complications Procedure: ? Pre-Anesthesia Assessment: ? - The risks and benefits of the procedure and the ? sedation options and risks were discussed with the ? patient. All questions were answered and informed ? consent was obtained. ? After obtaining informed consent, the endoscope was ? passed under direct vision. Throughout the procedure, ? the patie nt's blood pressure, pulse, and oxygen ? saturations were monitored continuously. The Endoscope ? was introduced through the mouth, and advanced to the ? third part of duodenum. The upper GI endoscopy was ? accomplished without difficulty. The patient tolerated ? the procedure well. ? Findings: ? No gross lesions were noted at the esophageal anastomosis. Biopsies were ? taken with a cold forceps for histology. Multiple medium-sized papules ? (nodules) with no ble eding and stigmata of recent bleeding were found in ? the entire examined stomach -- nodules were lazcano sed with white centers ? and looked umbilicated. Biopsies were taken with a co ld forceps for ? histology. No gross lesions were noted in the entire examined duodenum. ? Biopsies were taken with a cold forceps for histology . ? Impression: ?- No gross lesions in esophagus. ? - Multiple medium-sized papules (nodules) with no ? bleeding and stigmata of recent bleeding were found in ? the stomach. This was biopsie d. ? - No gross lesions in duodenu m. Recommendation: ?- Await pathology results. ? Signed electronically by Dr Ngo Dominga Ngo MD Signed Date: 06/27/2010 02:06:59 PM Number of Addenda: 0 I was physically present for the entire viewing portion of t he exam. Signature of teaching physician B4c/D4c Note initiated on 06/27/2010 12:44:40 PM Chitra Tadeo MD Specimen (Source) Anatomical Collection Method Collection Time Re ceived Time Location / / Volume Laterality 06/27/2010 12:44 PM EDGE KITTER Dominga Ngo MD PROCEDURES Performing Organization Address City/State/ZIP Code Phon e Number RADIOLOGY RESULTS documented in this encounter Visit Diagnoses Not on filedocumented in this encounter
--- OUTSIDE RECORDS SUMMARY | 2022-04-10 10:03 | XMS_ITS | Encounter Summary ---
:2000 Author Organization [place] Address [address] [place] [address] Care Team Providers Name Role Phone Unavailable Primary Care Provider Unavailable Reason for Referral Referral not Required - Closed Specialty Diagnoses / Procedures Referred By Contact Refer red To Contact Diagnoses Congenital anomalies of intestinal fixation Ignacio Solo MD [facility] [address] GASTROENTEROL [place], [place] [id number] [place] [address] [place] [address] Phone: [phone] Referral ID Status Reason Start Date Expiration Date Visits Requ ested Visits Authorized [id number] Closed 05/18/2010 05/18/2010 1 1 PRODUCTION ARTIST Encounter Details Date Type Department Care Team Description 05/18/2010 Orders Only [facility] Ignacio Solo Cong enital anomalies Clinic Meir DUPREE of intestinal fixation [address] (Primary Dx) [place] [id number] [phone] Social History Tobacco Use Types Packs/Day Years Used Date Smoking Tobacco: Never Comments: none at home Alcohol Use Standard Drinks/Week Comments Not Asked 0 (1 standard drink = 0.6 oz pure alcoho l) Sex Assigned at Date Recorded Male 03/09/2019 1:21 PM CDT documented as of this encounter Nursing Notes 05/18/2010 12:00 PM CST >> DINO CURRANELSON [facility] May 18, 2010 9:25 AM Message Jude Bills would like to request a referral. Reason: Blood in Stool Requested provider: Pediatric GI Comment: This message is being sent by Jaimie Bills on behalf of Jude Bills Please send a request for a Pediatric GI referral. Dr. Yoder and Dr. Wayne both felt Jude should be seen by GI. Per [facility] Message sent order for co-sign. documented in this encounter Plan of Treatment Upcoming Encounters Date Type Specialty Care Team Description 07/27/2022 Ancillary Procedure Cardiology Cordell Juarez MD [facility] [address] [id number] (Wo rk) 07/27/2022 Office Visit Cardiology Cordell Juarez MD [address] [place] [id number] [place], [place] [address] (Wo rk) documented as of this encounter Procedures Procedure Name Priority Date/Time Associated Diagnosis Comme [facility] GASTROENTEROLOGY PEDS Routine 10/02/2010 Congenital anoma lies of REFERRAL +/- PROCEDURE intestinal fixatio n documented in this encounter Results GASTROENTEROLOGY PEDS REFERRAL +/- PROCEDURE (10/02/2010) Narrative This result has an attachment that is no t available. Ignacio Solo MD REFERRAL documented in this encounter Visit Diagnoses Diagnosis Congenital anomalies of intestinal fixat ion - Primary documented in this encounter
--- OUTSIDE RECORDS SUMMARY | 2022-04-10 10:03 | XMS_ITS | Encounter Summary ---
:2000 Author Organization [place] Address [facility] [place] [address] Care Team Providers Name Role Phone Unavailable Primary Care Provider Unavailable Reason for Referral Referral not Required - Closed Specialty Diagnoses / Procedures Referred By Contact Refer red To Contact Diagnoses Helioising Ignacio Solo MD [facility] ONCOLOGY/HEMATOLOGY [address] [address] [address] [place] [address] Phone: [phone] Referral ID Status Reason Start Date Expiration Date Visits Requ ested Visits Authorized [id number] Closed 05/10/2010 05/10/2010 1 1 R MACHINE OPERATOR HELPER Reason for Visit Reason Comments Recheck Medication also L lower arm injury Mond ay Encounter Details Date Type Department Care Team Description 05/10/2010 Office Visit [facility] Ignacio Solo BRUI SING (Primary Dx); Clinic Meir DUPREE ADHD (attention deficit hyperactivity di sorder); [address] [place] [id number] Social History Tobacco Use Types Packs/Day Years Used Date Smoking Tobacco: Never Comments: none at home Alcohol Use Standard Drinks/Week Comments Not Asked 0 (1 standard drink = 0.6 oz pure alcoho l) Sex Assigned at Date Recorded Male 03/09/2019 1:21 PM CDT documented as of this encounter Last Filed Vital Signs Vital Sign Reading Time Taken Comments Blood Pressure 104/70 05/10/2010 2:09 PM LINER MACHINE OPERATOR HELPER Pulse - - Temperature 36.6 ??C (97.8 ??F) 05/10/2010 2:09 PM LINER MACHINE OPERATOR HELPER Respiratory Rate - - Oxygen Saturation - - Inhaled Oxygen Concentration - - Weight 26.3 kg (58 lb) 05/10/2010 2:09 PM LINER MACHINE OPERATOR HELPER Height 130.2 cm (4' 3.25) 05/10/2010 2:09 PM LINER MACHINE OPERATOR HELPER Body Mass Index 15.53 05/10/2010 2:09 PM LINER MACHINE OPERATOR HELPER Body Mass Index Percentile 24.19 % 05/10/2010 2:09 PM CS T Growth Chart: [facility] (Boys, 2-20 Years) documented in this encounter Progress Notes Ignacio Solo - 05/23/2010 4:26 PM CST Jude Bills is a 10 year old male here with mom and dad for ADHD f/u. Pt feels he concentrates well with medication. Some appetite suppression but otherwise ok. Usually sleeps well. No other new SE. No recent cardiac issues or SOB Main issue with occ flecks of blood in stool ongoing for a month. Mild intermittent pain. Never severe or limiting activity. No emesis. Also with large bruise on forearm after hitting it on surface. Able to use arm. No limited function. No other excessive bruising or spontaneous bleeding noted No epistaxis or hematemesis No new rash or hives No [place] or dizziness No SOB Gen: no distress, good spirits No pallor MMM, no oral lesions Neck: no adenopathy Lungs CTA bilat with no wheeze or crackle, no retractions CV: 3/6 murmur abd soft ntnd, no mass Ext: well perfused, no deformity Skin: large echymosis l forearm, no other bruise, petechia or purpura A/P excessive bruising Blood in stool Refer to hematology for eval with Dr. Yoder If no etiology determined then will refer to GI No cardiac sx, Call if develops Cont current meds ADHD Cont focalin xr Beneficial to school function, No major SE. Cont current dose. F/u within 6 months R MACHINE OPERATOR HELPER documented in this encounter Nursing Notes 05/10/2010 2:00 PM CST >> RENE HILL SatMay 10, 2010 2:12 PM Patient presents with: Recheck Medication - also L lower arm injury Saturday Initial BP 104/70 Temp(Src) 97.8 ??F (36.6 ??C) (Oral) Ht 4' 3.25 (1.302 m) Wt 58 lb (26.309 kg) Estimated Body mass index is 15.53 kg/(m^2) as calculated from the following: Height as of this encounter: 4' 3.25(1.302 m). Weight as of this encounter: 58 lb(26.309 kg).. BP completed using cuff size: pediatric documented in this encounter Plan of Treatment Upcoming Encounters Date Type Specialty Care Team Description 07/27/2022 Ancillary Procedure Cardiology Cordell Juarez MD [address] [id number] ( lucio) 07/27/2022 Office Visit Cardiology Cordell Juarez MD [address] [place], [place] [address] (Arleen valdes) documented as of this encounter Procedures Procedure Name Priority Date/Time Associated Diagnosis Comme nts ONCOLOGY/HEMATOLOGY ADULT JOURNEYMAN APPRENTICE ELECTRICIANS Routine 05/15/2010 Bruis ing REFERRAL documented in this encounter Results ONC/HEME ADULT REFERRAL (05/15/2010) Narrative This result has an attachment that is no t available. Ignacio Solo MD REFERRAL documented in this encounter Visit Diagnoses Diagnosis Bruising - Primary Contusion of unspecified site ADHD (attention deficit hyperactivity di sorder) Attention deficit disorder with hyperact ivity Blood in stool documented in this encounter
--- OUTSIDE RECORDS SUMMARY | 2022-04-10 10:03 | XMS_ITS | Encounter Summary ---
:2000 Author Organization [place] Address [facility] [place] [address] Care Team Providers Name Role Phone Unavailable Primary Care Provider Unavailable Reason for Visit Reason Onset Date Comments Medication Request 05/02/2010 Focalin Encounter Details Date Type Department Care Team Description 05/02/2010 Telephone [facility] Ignacio Solo, [facility] cation Request Clinic Meir DUPREE (Focalin) [address] [place], [place] [id number] [phone] Social History Tobacco Use Types Packs/Day Years Used Date Smoking Tobacco: Never Comments: none at home Alcohol Use Standard Drinks/Week Comments Not Asked 0 (1 standard drink = 0.6 oz pure alcoho l) Sex Assigned at Date Recorded Male 03/09/2019 1:21 PM CDT documented as of this encounter Miscellaneous Notes Telephone Encounter - Sarah Jones - 05/08/2010 2:24 PM CST 05/08/10 Rx left at waterfront director. Mom has appt 05/10/10 @ 2:[address] Solo. ONNEL COUNSELOR Telephone Encounter - Cheri Jurado - 05/04/2010 8:18 AM CST Left message for mom to return call. Dr. Solo mentioned need for f/u 02/13/10 encounter as well. Needs to be seen within the next month. ONNEL COUNSELOR Telephone Encounter - Tory Mann - 05/03/2010 11:15 AM CST In pt was advised f/u with 6 months according to the note ONNEL COUNSELOR Telephone Encounter - Christa Blackman - 05/02/2010 6:34 PM CST Called mom to notify her of MD's message, she was very upset and stated that she hasn't had to bringhim in for a follow up and hasn't been told that she has to. I asked her if she would like to be transferred to the waterfront director to make an appointment and then we got disconnected. ONNEL COUNSELOR Telephone Encounter - Tory Mann - 05/02/2010 5:45 PM CST Pt has not been seen for ADD f/u since Can not do refill Shouldn't wait till the last moment to request a refill ONNEL COUNSELOR Telephone Encounter - Tracy Tellez - 05/02/2010 4:46 PM CST Mom requesting hard copy refill of Focalin. Zero pills left in current rx. Please call her @ [phone], ok to leave message. Thank you, Tracy Tellez RN/ [facility] ONNEL COUNSELOR documented in this encounter Plan of Treatment Upcoming Encounters Date Type Specialty Care Team Description 07/27/2022 Ancillary Procedure Cardiology Cordell Juarez MD [address] [place] [address] (Wo rk) 07/27/2022 Office Visit Cardiology Cordell Juarez MD [address] [place] [address] (Wo rk) documented as of this encounter Visit Diagnoses Diagnosis Attention deficit disorder with hyperact ivity(314.01) - Primary Attention deficit disorder with hyperact ivity documented in this encounter
--- OUTSIDE RECORDS SUMMARY | 2022-04-10 10:03 | XMS_ITS | Encounter Summary ---
:2000 Author Organization [place] Address [address] [place] [address] Care Team Providers Name Role Phone Unavailable Primary Care Provider Unavailable Encounter Details Date Type Department Care Team Description 05/15/2010 Office Visit-[facility] INTERFACE [facility] DEPT Unknown, Provider Social History Tobacco Use Types Packs/Day Years Used Date Smoking Tobacco: Never Comments: none at home Alcohol Use Standard Drinks/Week Comments Not Asked 0 (1 standard drink = 0.6 oz pure alcoho l) Sex Assigned at Date Recorded Male 03/09/2019 1:21 PM CDT documented as of this encounter Progress Notes Unknown, Provider - 05/15/2010 9:00 AM CST House Carpenter Helper: Katalina Aquino Status: Final Encounter: 15 May 2010 Type: Rooming Note Reason For Visit PIERRE BILLS is a 10 year old male coming to clinic for consultation for bleeding and hematoma on arm. Do you have any other appointments, tests or procedures within the [facility] system for this same day? No. Pain Eval Current history of pain associated with this visit is denied. Personal Hx Home environment: No secondhand tobacco smoke in home. Vital Signs Recorded by Katalina Aqiuno on 15 May 2010 09:44 AM BP:108/68, RUE, Sitting, HR: 80 b/min, Resp: 18 r/min, Temp: 97.6 F, Oral, Height: 130 cm, Weight: 26.3 kg, BMI: 15.6 kg/m2, Pain Scale: 0, O2 Sat: 97 (%SpO2), RA. Allergies Captopril TABS. Current Meds Med list offered and patient declined. Focalin XR 10 MG Capsule Extended Release 24 Hour;TAKE 1 CAPSULE DAILY.; RPT Aspirin 81 MG Tablet Chewable;CHEW AND SWALLOW 1 TABLET DAILY.; RPT Digoxin 0.125 MG Tablet;TAKE 1 TABLET DAILY.; Rx Lisinopril 10 MG Tablet;TAKE 1/2 TABLET DAILY.; Rx AAA-MED RECONCILE;per mother; RPT. Signature Signed By: Katalina Aquino RN; 05/15/2010 9:48 AM SHIPPING SUPPORT. documented in this encounter Plan of Treatment Upcoming Encounters Date Type Specialty Care Team Description 07/27/2022 Ancillary Procedure Cardiology Cordell Juarez MD [address] [place] [address] (Arleen valdes) 07/27/2022 Office Visit Cardiology Cordell Juarez MD [address] [facility] [address] [place] [address] (Arleen valdes) documented as of this encounter Visit Diagnoses Not on filedocumented in this encounter
--- OUTSIDE RECORDS SUMMARY | 2022-04-10 10:03 | XMS_ITS | Encounter Summary ---
:2000 Author Organization [place] Address [address] [facility] [place] [address] Care Team Providers Name Role Phone Unavailable Primary Care Provider Unavailable Encounter Details Date Type Department Care Team Description 05/15/2010 Office Visit-[facility] INTERFACE [facility] DEPT Provider, [facility] Nurs e Social History Tobacco Use Types Packs/Day Years Used Date Smoking Tobacco: Never Comments: none at home Alcohol Use Standard Drinks/Week Comments Not Asked 0 (1 standard drink = 0.6 oz pure alcoho l) Sex Assigned at Date Recorded Male 03/09/2019 1:21 PM CDT documented as of this encounter Progress Notes Provider, [facility] Nurse - 05/15/2010 9:00 AM CST Chief Meteorologist: Kaitlyn Kong Status: Signed Encounter: 15 May 2010 Type: Chart Note Jude's mother called to ask for the results from his appointment with Dr. Yoder on May 15. I send to message to Dr. Yoder by phone and email and asked her to contact her when she has all of his results. Electronically signed by:Kaitlyn Kong May 18 2010 10:04AM TOW MOTOR OPERATOR Author documented in this encounter Plan of Treatment Upcoming Encounters Date Type Specialty Care Team Description 07/27/2022 Ancillary Procedure Cardiology Larry, Cordell Barajas MD [address] [facility] [address] [place] [address] (Wo rk) 07/27/2022 Office Visit Cardiology Larry, Cordell skelton MD [address] [place] [address] (Wo rk) documented as of this encounter Visit Diagnoses Not on filedocumented in this encounter
--- OUTSIDE RECORDS SUMMARY | 2022-04-10 10:03 | XMS_ITS | Encounter Summary ---
:2000 Author Organization [place] Address [address] [place] [address] Care Team Providers Name Role Phone Unavailable Primary Care Provider Unavailable Encounter Details Date Type Department Care Team Description 06/05/2010 Office Visit-[facility] Dominga Ngo Pediatric MD [facility] [place] GASTROENTEROLOGY [address] [facility] [address] [place] [address] [place], [place] [phone] (Wo rk) [id number] [phone] Social History Tobacco Use Types Packs/Day Years Used Date Smoking Tobacco: Never Comments: none at home Alcohol Use Standard Drinks/Week Comments Not Asked 0 (1 standard drink = 0.6 oz pure alcoho l) Sex Assigned at Date Recorded Male 03/09/2019 1:21 PM CDT documented as of this encounter Progress Notes Dominga Ngo - 06/05/2010 10:30 AM CST Donor Services Specialist: Dominga Ngo Status: Final Encounter: 05 Jun 2010 Type: Peds GI Visit Letter June 05, [address] MARIBEL DUPREE,CON: I had the pleasure of seeing your patient, PIERRE BILLS, in the pediatric gastroenterology clinic today for a consultation. PIERRE is a 10 year male with a history of hypoplastic left heart syndrome, pulmonary atresia, duplication of aster cava, polyspenia and midline liver. He complains of blood in the stools since February 2010. The blood is usually in spots and red in color. The consistency of the stools is variable, it is sometimes hard or loose. He passes stools three times every day. He has noticed green colored stools once or twice. He doesn't complain of pain in the abdomen or in his bottom while passing stools. He complains of occassional pain in the abdomen, which is diffuse in nature, not localized to a particular site and mild in nature. He also complains of pain over the incision site on his abdomen. He had no abdominal pains since the past few weeks. He has no symptoms of urgency, fever, nausea or vomiting. He eats well, but often misses lunch, as he has no appetite due to Focalin. He goes to school regularly. ROS A comprehensive review of 10 systems was performed and it was noncontributory other than as noted above. PMHx: PIERRE was born at term after uncomplicated and delivery. He had 3 open heart surgeries in 2001, 2002 and 2003. He also had a surgery for malrotated intestine in 2005. He went to the emergency department for the blood in the stools, in February 2010. He was given Magnesium citrate, but still continues to pass blood. He has a history of ADHD. SHx: PIERRE lives with his mom and dad. Drinks well water and has not been traveling outside of the [place] in the past 6 months. Family Hx: He was adopted at the age of 16 months from [place], so his family history is not available. Allergies Captopril TABS. Current Meds [ Med list offered and patient declined. ][ Med list printed and given to patient. ]. Focalin XR 10 MG Capsule Extended Release 24 Hour;TAKE 1 CAPSULE DAILY.; RPT Aspirin 81 MG Tablet Chewable;CHEW AND SWALLOW 1 TABLET DAILY.; RPT Digoxin 0.125 MG Tablet;TAKE 1 TABLET DAILY.; Rx Lisinopril 10 MG Tablet;TAKE 1/2 TABLET DAILY.; Rx AAA-MED RECONCILE;per mother; RPT. Vital Signs Recorded by Mary Branham on 05 Jun 2010 11:06 AM BP:108/74, RUE, Sitting, HR: 86 b/min, Resp: 20 r/min, Temp: 96.3 F, Height: 129.3 cm, Weight: 25.8 kg, BMI: 15.4 kg/m2. Physical Exam Constitutional: General appearance: Alert, active, and in no acute distress Skin: Pin point rashes are seen on legs. Eyes: Sclera, cornea and conjunctiva are clear. Ears: normal position and external ear. Nose: no discharge or trauma. Throat and oropharynx: mucous membranes moist, no masses, lesions or abnormalities. Hematologic/Lymph: There is no cervical lymphadenopathy. Respiratory: Lungs: clear to auscultation bilaterally. Cardiovascular: Heart: regular rate and rhythm. Gastrointestinal: Abdomen: soft, nontender, nondistended, no organomegaly. Musculoskeletal: Extremities warm well perfused. Nocyanosis, clubbing, or edema. Neuro: Awake, good eye contact. Normal gait. He does have a step-off at the top of the gluteal fold, with underlying fluctuance. This has never been examined previously. It is my impression that PIERRE is a 10 year male with a history of passing blood per rectum. An upperand lower GI endoscope with biopsy will be performed to rule out Inflammatory Bowel Disease in particular. Lumbar spine MRI has also been planned to evaluate for a minor spina bifida or cystic disease. We spent greater than 50% of a 60 min visit on discussion of PIERRE symptoms, past medical history, review of systems, physical exam findings, treatment and follow up plan. Thank you very much for allowing me to participate in his care. Please do not hesitate to call me if you have any further questions. Sincerely, Dominga Ngo MD Health Type Technician Pediatric Gastroenterology, Hepatology and Nutrition Department of Pediatrics, [facility] CC: PCP and Parents of PIERRE BILLS. Signature Signed By: Dominga Ngo MD; 06/13/2010 2:30 PM HEDGE FUND ACCOUNTANT. E FUND ACCOUNTANT documented in this encounter Plan of Treatment Upcoming Encounters Date Type Specialty Care Team Description 07/27/2022 Ancillary Procedure Cardiology LarryCordell MD [address] [facility] [place] [phone] (Wo rk) 07/27/2022 Office Visit Cardiology Larry, Cordell skelton MD [address] [facility] [place] [phone] (Wo rk) documented as of this encounter Visit Diagnoses Not on filedocumented in this encounter
--- OUTSIDE RECORDS SUMMARY | 2022-04-10 10:03 | XMS_ITS | Encounter Summary ---
:2000 Author Organization [place] Address [facility] [address] Care Team Providers Name Role Phone Unavailable Primary Care Provider Unavailable Encounter Details Date Type Department Care Team Description 05/15/2010 Historic Results [facility]Camille Petit MD Hospitalists [facility] [place] [address] (Wo rk) Social History Tobacco [...] Ancillary Procedure Cardiology Cordell Juarez MD [address] [place] [address] [id number] (Wo rk) 07/27/2022 Office Visit Cardiology Cordell Juarez MD [facility] [place] [address] [id number] (Wo rk) documented as of this encounter Procedures Procedure Name Priority Date/Time Associated Comments Diagnosis SEND OUTS MISC TEST Routine 05/15/2010 10:56 Resu lts for this AM WELFARE WORKER procedure are i n the results section. VON WILLEBRAND Routine 05/15/2010 10:56 Results f or this MULTIMERS AM WELFARE WORKER procedure are i n the results section. IGG Routine 05/15/2010 10:56 Results for this AM WELFARE WORKER procedure are i n the results section. CBC WITH PLATELETS & Routine 05/15/2010 10:56 Res ults for this DIFFERENTIAL AM WELFARE WORKER procedure are i n the results section. VON WILLEBRAND ANTIGEN Routine 05/15/2010 10:56 R esults for this AM WELFARE WORKER procedure are i n the results section. THROMBIN TIME Routine 05/15/2010 10:56 Results fo r this AM WELFARE WORKER procedure are i n the results section. RISTOCETIN COFACTOR Routine 05/15/2010 10:56 Resu lts for this AM WELFARE WORKER procedure are i n the results section. RETICULOCYTE COUNT Routine 05/15/2010 10:56 Resul ts for this AM WELFARE WORKER procedure are i n the results section. INR Routine 05/15/2010 10:56 Results for this AM WELFARE WORKER procedure are i n the results section. PLATELET FUNCTION Routine 05/15/2010 10:56 Result s for this CLOSURE WITH REFLEX AM WELFARE WORKER procedur e are in the results section. PLATELET FUNCTION Routine 05/15/2010 10:56 Result s for this CLOSURE ADP AM WELFARE WORKER procedure are i n the results section. PARTIAL THROMBOPLASTIN Routine 05/15/2010 10:56 R esults for this TIME AM WELFARE WORKER procedure are i n the results section. IRON AND IRON BINDING Routine 05/15/2010 10:56 Re sults for this CAPACITY AM WELFARE WORKER procedure are i n the results section. FIBRINOGEN ACTIVITY Routine 05/15/2010 10:56 Resu lts for this AM WELFARE WORKER procedure are i n the results section. FACTOR 9 ASSAY Routine 05/15/2010 10:56 Results f or this AM WELFARE WORKER procedure are i n the results section. FACTOR 8 ASSAY Routine 05/15/2010 10:56 Results f or this AM WELFARE WORKER procedure are i n the results section. FACTOR 7 ASSAY Routine 05/15/2010 10:56 Results f or this AM WELFARE WORKER procedure are i n the results section. FACTOR 5 ASSAY Routine 05/15/2010 10:56 Results f or this AM WELFARE WORKER procedure are i n the results section. FACTOR 2 ASSAY Routine 05/15/2010 10:56 Results f or this AM WELFARE WORKER procedure are i n the results section. FACTOR 13 ANTIGEN Routine 05/15/2010 10:56 Result s for this AM WELFARE WORKER procedure are i n the results section. FACTOR 10 ASSAY Routine 05/15/2010 10:56 Results for this AM WELFARE WORKER procedure are i n the results section. CRP INFLAMMATION Routine 05/15/2010 10:56 Results for this AM WELFARE WORKER procedure are i n the results section. COMPREHENSIVE METABOLIC Routine 05/15/2010 10:56 Results for this PANEL AM WELFARE WORKER procedure are i n the results section. ANTITHROMBIN III Routine 05/15/2010 10:56 Results for this AM WELFARE WORKER procedure are i n the results section. documented in this encounter Results (ABNORMAL) Factor 13 antigen (05/15/2010 10:56 AM WELFARE WORKER) P athologist Signature FACTOR 13 AGN 47 (L) 60 - 130 % MISYS SUBUNIT A Comment: (Note) Mildly decreased Factor 13 level. ??Fact or 13 levels of 3 - 10% have been suggested to be sufficient to preve nt spontaneous hemorrhages. Ref: ??Seminars Thromb Hemost 1996;22(5) :419; however the International Registry did not find stro ng correlation between severity of bleeding and Factor 13 level s. ??Ref: ??Thromb Haemost 2007;97:914. Babs Navarrete M.D. ??[phone] 05/23/2010, 13:49 Specimen Anatomical Collection Method Collection Time Receive d Time (Source) Location / / Volume Laterality 05/15/2010 10:56 05/15/2010 AM WELFARE WORKER 11:01 AM WELFARE WORKER Rachelle Yoder MD LAB - BLOOD ORDERABLES Performing Organization Address City/State/ZIP Code Phon e Number MISYS Antithrombin III (05/15/2010 10:56 AM WELFARE WORKER) P athologist Signature Antithrombin III 115 80 - 120 % MISYS Chromogenic Specimen Anatomical Collection Method Collection Time Receive d Time (Source) Location / / Volume Laterality 05/15/2010 10:56 05/15/2010 AM WELFARE WORKER 11:01 AM WELFARE WORKER Rachelle Yoder MD LAB - BLOOD ORDERABLES Performing Organization Address City/State/ZIP Code Phon e Number MISYS CBC with platelets differential (05/15/2010 10:56 AM WELFARE WORKER) Patholo gist Method Time Signature MCV 82 77 - 100 MISYS fl MCH 28.1 26.5 - MISYS 33.0 pg MCHC 34.2 31.5 - MISYS 36.5 g/dL RDW 13.4 10.0 - MISYS 15.0 % WBC 4.9 4.0 - MISYS 11.0 10e9/L RBC Count 4.81 3.7 - 5.3 MISYS 10e12/L Hemoglobin 13.5 11.7 - MISYS 15.7 g/dL Hematocrit 39.5 35.0 - MISYS 47.0 % % Neutrophils 59 32 - 64 % MISYS % Lymphocytes 28 26 - 50 % MISYS % Monocytes 10 0 - 12 % MISYS % Eosinophils 2 0 - 6 % MISYS % Basophils 1 0 - 2 % MISYS Platelet Count 259 150 - 450 MISYS 10e9/L Absolute 2.9 1.3 - 7.0 MISYS Neutrophil 10e9/L Absolute 1.4 1.0 - 5.8 MISYS Lymphocytes 10e9/L Absolute 0.5 0.0 - 1.3 MISYS Monocytes 10e9/L Absolute 0.1 0.0 - 0.7 MISYS Eosinophils 10e9/L Absolute 0.0 0.0 - 0.2 MISYS Basophils 10e9/L Diff Method Automated MISYS Method Specimen Anatomical Collection Method Collection Time Receive d Time (Source) Location / / Volume Laterality 05/15/2010 10:56 05/15/2010 AM WELFARE WORKER 11:01 AM WELFARE WORKER Rachelle Yoder MD LAB - BLOOD ORDERABLES Performing Organization Address City/State/ZIP Code Phon e Number MISYS Comprehensive metabolic panel (05/15/2010 10:56 AM WELFARE WORKER) athologist Signature Sodium 139 133 - 143 MISYS mmol/L Potassium 3.8 3.4 - 5.3 MISYS mmol/L Chloride 104 98 - 110 MISYS mmol/L Carbon Dioxide 24 20 - 32 MISYS mmol/L Glucose 95 60 - 99 MISYS mg/dL Urea Nitrogen 19 5 - 24 MISYS mg/dL Creatinine 0.54 0.39 - 0.73 MISYS mg/dL Comment: New IDMS-traceable calibration beginning 10/16/07 GFR Estimate GFR not calculated, patient <16 mL/min/1.7m2 MISYS years old. GFR Estimate If Black GFR not calculated, patient <16 mL/min/1.7m2 MISYS years old. Calcium 9.5 8.7 - 10.8 mg/dL MISYS AST 36 0 - 50 U/L MISYS Protein Total 7.9 6.8 - 8.8 g/dL MISYS Anion Gap 12 6 - 17 mmol/L MISYS Albumin 4.7 3.9 - 5.1 g/dL MISYS ALT 22 0 - 50 U/L MISYS Alkaline Phosphatase 240 130 - 530 U/L MISYS Bilirubin Total 0.3 0.2 - 1.3 mg/dL MISYS Specimen Anatomical Collection Method Collection Time Receive d Time (Source) Location / / Volume Laterality 05/15/2010 10:56 05/15/2010 AM WELFARE WORKER 11:01 AM WELFARE WORKER Rachelle Yoder MD LAB - BLOOD ORDERABLES Performing Organization Address City/State/ZIP Code Phon e Number MISYS CRP inflammation (05/15/2010 10:56 AM WELFARE WORKER) P athologist Signature CRP Inflammation <5.0 0.0 - 8.0 MISYS mg/L Specimen Anatomical Collection Method Collection Time Receive d Time (Source) Location / / Volume Laterality 05/15/2010 10:56 05/15/2010 AM WELFARE WORKER 11:01 AM WELFARE WORKER Rachelle Yoder MD LAB - BLOOD ORDERABLES Performing Organization Address City/State/ZIP Code Phon e Number MISYS Factor 10 assay (05/15/2010 10:56 AM WELFARE WORKER) P athologist Signature Factor 10 Assay 70 60 - 140 % MISYS Specimen Anatomical Collection Method Collection Time Receive d Time (Source) Location / / Volume Laterality 05/15/2010 10:56 05/15/2010 AM WELFARE WORKER 11:01 AM WELFARE WORKER Rachelle Yoder MD LAB - BLOOD ORDERABLES Performing Organization Address City/State/ZIP Code Phon e Number MISYS Factor 2 assay (05/15/2010 10:56 AM WELFARE WORKER) P athologist Signature Factor 2 Assay 89 60 - 140 % MISYS Specimen Anatomical Collection Method Collection Time Receive d Time (Source) Location / / Volume Laterality 05/15/2010 10:56 05/15/2010 AM WELFARE WORKER 11:01 AM WELFARE WORKER Rachelle Yoder MD LAB - BLOOD ORDERABLES Performing Organization Address City/State/ZIP Code Phon e Number MISYS Factor 5 assay (05/15/2010 10:56 AM WELFARE WORKER) P athologist Signature Factor 5 Assay 106 60 - 140 % MISYS Specimen Anatomical Collection Method Collection Time Receive d Time (Source) Location / / Volume Laterality 05/15/2010 10:56 05/15/2010 AM WELFARE WORKER 11:01 AM WELFARE WORKER Rachelle Yoder MD LAB - BLOOD ORDERABLES Performing Organization Address City/State/ZIP Code Phon e Number MISYS Factor 7 assay (05/15/2010 10:56 AM WELFARE WORKER) P athologist Signature Factor 7 Assay 68 60 - 140 % MISYS Specimen Anatomical Collection Method Collection Time Receive d Time (Source) Location / / Volume Laterality 05/15/2010 10:56 05/15/2010 AM WELFARE WORKER 11:01 AM WELFARE WORKER Rachelle Yoder MD LAB - BLOOD ORDERABLES Performing Organization Address City/[facility]/ZIP Code Phon e Number MISYS Factor 8 assay (05/15/2010 10:56 AM WELFARE WORKER) P athologist Signature Factor 8 Assay 101 60 - 140 % MISYS Specimen Anatomical Collection Method Collection Time Receive d Time (Source) Location / / Volume Laterality 05/15/2010 10:56 05/15/2010 AM WELFARE WORKER 11:01 AM WELFARE WORKER Rachelle Yoder MD LAB - BLOOD ORDERABLES Performing Organization Address City/State/ZIP Code Phon e Number MISYS Factor 9 assay (05/15/2010 10:56 AM WELFARE WORKER) P athologist Signature Factor 9 Assay 62 60 - 140 % MISYS Specimen Anatomical Collection Method Collection Time Receive d Time (Source) Location / / Volume Laterality 05/15/2010 10:56 05/15/2010 AM WELFARE WORKER 11:01 AM WELFARE WORKER Rachelle Yoder MD LAB - BLOOD ORDERABLES Performing Organization Address City/State/ZIP Code Phon e Number MISYS (ABNORMAL) Iron and iron binding capacity (05/15/2010 10:56 AM WELFARE WORKER) P athologist Signature Iron 33 25 - 140 MISYS ug/dL Iron Binding Cap 359 240 - 430 MISYS ug/dL Iron Saturation 9 (L) 15 - 46 % MISYS Index Specimen Anatomical Collection Method Collection Time Receive d Time (Source) Location / / Volume Laterality 05/15/2010 10:56 05/15/2010 AM WELFARE WORKER 11:01 AM WELFARE WORKER Rachelel Yoder MD LAB - BLOOD ORDERABLES Performing Organization Address City/State/ZIP Code Phon e Number MISYS Fibrinogen activity (05/15/2010 10:56 AM WELFARE WORKER) P athologist Signature Fibrinogen 291 200 - 420 MISYS mg/dL Specimen Anatomical Collection Method Collection Time Receive d Time (Source) Location / / Volume Laterality 05/15/2010 10:56 05/15/2010 AM WELFARE WORKER 11:01 AM WELFARE WORKER Rachelle Yoder MD LAB - BLOOD ORDERABLES Performing Organization Address City/State/ZIP Code Phon e Number MISYS IgG (05/15/2010 10:56 AM WELFARE WORKER) P athologist Signature IGG 963 695 - 1620 MISYS mg/dL Specimen Anatomical Collection Method Collection Time Receive d Time (Source) Location / / Volume Laterality 05/15/2010 10:56 05/15/2010 AM WELFARE WORKER 11:01 AM WELFARE WORKER Rachelle Yoder MD LAB - BLOOD ORDERABLES Performing Organization Address City/[facility]/ZIP Code Phon e Number MISYS (ABNORMAL) Platelet function closure with reflex (05/15/2010 10:56 AM WELFARE WORKER) P athologist Signature PLT Funct >300 (H) <185 sec MISYS COL/EPI Specimen Anatomical Collection Method Collection Time Receive d Time (Source) Location / / Volume Laterality 05/15/2010 10:56 05/15/2010 AM WELFARE WORKER 11:02 AM WELFARE WORKER Rachelle Yoder MD LAB - BLOOD ORDERABLES Performing Organization Address City/State/ZIP Code Phon e Number MISYS Platelet function closure ADP (05/15/2010 10:56 AM WELFARE WORKER) P athologist Signature Platelet 101 <120 sec MISYS Function Closure Time Col/ADP Comment: Typical aspirin effect is characterized by prolonged Col/Epi and normal Col/ADP. Specimen Anatomical Collection Method Collection Time Receive d Time (Source) Location / / Volume Laterality 05/15/2010 10:56 05/15/2010 AM WELFARE WORKER 11:02 AM WELFARE WORKER Rachelle Yoder MD LAB - BLOOD ORDERABLES Performing Organization Address [facility] Phon e Number MISYS Reticulocyte count (05/15/2010 10:56 AM WELFARE WORKER) [facility] gist Method Time Signature % Retic 1.1 0.5 - 2.0 MISYS % Absolute 52.9 25 - 95 MISYS Retic 10e9/L Retic Method Automated MISYS Method Specimen Anatomical Collection Method Collection Time Receive d Time (Source) Location / / Volume Laterality 05/15/2010 10:56 05/15/2010 AM WELFARE WORKER 11:02 AM WELFARE WORKER Rachelle Yoder MD LAB - BLOOD ORDERABLES Performing Organization Address [facility] Phon e Number MISYS Ristocetin cofactor (05/15/2010 10:56 AM WELFARE WORKER) athologist Signature Ristocetin 74 50 - 175 % MISYS Cofactor Comment: (Note) The Von Willebrand factor antigen (VWF:A g), Ristocetin Cofactor activity (VWF:RCo), and Factor 8 levels are within normal limits. The VWF:Ag to F8 ratio is within normal limits. ??The VWF:RCo to VWF:Ag ratio is low normal and is lower than seen with previous testing. Multimer analysis will be sent. ??Final interpretation pending multimer analysis. Nu Srivastava M.D. ??[phone] . 05-16-2010, 13:21 See sendout Miscellaneous test for [facility] Multimer report. ??See VWMULT test for final interpretation. Specimen Anatomical Collection Method Collection Time Receive d Time (Source) Location / / Volume Laterality 05/15/2010 10:56 05/15/2010 AM WELFARE WORKER 11:02 AM WELFARE WORKER Rachelle Yoder MD LAB - BLOOD ORDERABLES Performing Organization Address City/State/ZIP Code Phon e Number MISYS Thrombin time (05/15/2010 10:56 AM WELFARE WORKER) P athologist Signature Thrombin Time 16.4 13.0 - 19.0 MISYS sec Specimen Anatomical Collection Method Collection Time Receive d Time (Source) Location / / Volume Laterality 05/15/2010 10:56 05/15/2010 AM WELFARE WORKER 11:02 AM WELFARE WORKER Rachelle Yoder MD LAB - BLOOD ORDERABLES Performing Organization Address City/State/ZIP Code Phon e Number MISYS Von Willebrand antigen (05/15/2010 10:56 AM WELFARE WORKER) P athologist Signature von Willebrand 103 55 - 160 % MISYS Antigen Specimen Anatomical Collection Method Collection Time Receive d Time (Source) Location / / Volume Laterality 05/15/2010 10:56 05/15/2010 AM WELFARE WORKER 11:02 AM WELFARE WORKER Rachelle Yoder MD LAB - BLOOD ORDERABLES Performing Organization Address City/[facility]/ZIP Code Phon e Number MISYS Von Willebrand multimers (05/15/2010 10:56 AM WELFARE WORKER) P athologist Signature Von Willebrand (Note) MISYS Multimers Comment: FINAL VON WILLEBRAND PANEL COMMENTS: Normal Von Willebrand factor antigen (VW F:Ag), normal Ristocetin Cofactor activity (VWF:RCo), and normal Factor 8 levels. ??The VWF:Ag to F8 ratio is within normal limits. ??T he VWF:RCo to VWF:Ag ratio is low normal ??These levels are similar to previous testing in 2004 and 2005 with the exception of the slightly lower but still within normal limits VWF:RCo level. ??The distribution of plasma von Willebrand factor multimers is normal (see report f rom [facility] [employer]). ??A diagnosis of von Will ebrand disease can neither be confirmed nor excluded on the basis of t his testing. ??A low VWF:Ag to F8 ratio can be seen in some types of vo n Willebrand's disease; however, ??a low ratio by itself is not diagnostic. ??If von Willebrand disease is suspected, recommend testing when the patient is at his usual state of health to obtain baseline values. Nu Srivastava M.D. ??[phone] . 05/29/2010, 16:18 Specimen Anatomical Collection Method Collection Time Receive d Time (Source) Location / / Volume Laterality 05/15/2010 10:56 05/15/2010 AM WELFARE WORKER 11:02 AM WELFARE WORKER Rachelle Yoder MD LAB - BLOOD ORDERABLES Performing Organization Address [facility] Phon e Number MISYS INR (05/15/2010 10:56 AM WELFARE WORKER) P athologist Signature INR 1.07 0.86 - 1.14 MISYS Specimen Anatomical Collection Method Collection Time Receive d Time (Source) Location / / Volume Laterality 05/15/2010 10:56 05/15/2010 AM WELFARE WORKER 11:59 AM WELFARE WORKER Rachelle Yoder MD LAB - BLOOD ORDERABLES Performing Organization Address [facility] Phon e Number MISYS (ABNORMAL) Partial thromboplastin time (05/15/2010 10:56 AM WELFARE WORKER) P athologist Signature PTT 38 (H) 22 - 37 sec MISYS Specimen Anatomical Collection Method Collection Time Receive d Time (Source) Location / / Volume Laterality 05/15/2010 10:56 05/15/2010 AM WELFARE WORKER 11:59 AM WELFARE WORKER Rachelle Yoder MD LAB - BLOOD ORDERABLES Performing Organization Address [facility] Phon e Number MISYS Send outs misc test (05/15/2010 10:56 AM WELFARE WORKER) Patholo gist Method Time Signature Test Name VW MULTIMERS MISYS Send Outs CITRATED MISYS Misc Test PLASMA Specimen Normal Range SEE REPORT MISYS for Send Outs Misc Test Lab Scanned Laboratory MISYS Result Scanned Result [id number] Specimen Anatomical Collection Method Collection Time Receive d Time (Source) Location / / Volume Laterality 05/15/2010 10:56 05/16/2010 4:49 AM WELFARE WORKER PM WELFARE WORKER Rachelle Yoder MD LAB - BLOOD ORDERABLES Performing Organization Address [facility] Phon e Number MISYS documented in this encounter Visit Diagnoses Not on filedocumented in this encounter
--- OUTSIDE RECORDS SUMMARY | 2022-04-10 10:03 | XMS_ITS | Encounter Summary ---
:2000 Author Organization [place] Address [facility] [place] [address] Care Team Providers Name Role Phone Unavailable Primary Care Provider Unavailable Encounter Details Date Type Department Care Team Description 06/05/2010 Office Visit-[facility] INTERFACE [facility] DEPT Nilo Branham, RN [facility] [address] [place] [address] Social History Tobacco Use Types Packs/Day Years Used Date Smoking Tobacco: Never Comments: none at home Alcohol Use Standard Drinks/Week Comments Not Asked 0 (1 standard drink = 0.6 oz pure alcoho l) Sex Assigned at Date Recorded Male 03/09/2019 1:21 PM CDT documented as of this encounter Progress Notes Nilo Branham - 06/05/2010 10:30 AM CST Operations Controller: Nilo Branham Status: Final Encounter: 05 Jun 2010 Type: Rooming Note Informant Parent is informant unless otherwise noted. Reason For Visit Blood in stool Do you have any other appointments, tests or procedures within the [facility] system for this same day? No. Pain Eval Current history of pain associated with this visit is denied. 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 Personal Hx Behavioral history: No tobacco use. Home environment: No secondhand tobacco smoke in home. Vital Signs Position for height measurement: standing Blood pressure taken with: electronic BP machine. Height Percentile: 5 Weight Percentile: 5 BMI %: 15 kg/m2 22% . Recorded by Nilo Branham on 05 Jun 2010 11:06 AM BP:108/74, RUE, Sitting, HR: 86 b/min, Resp: 20 r/min, Temp: 96.3 F, Height: 129.3 cm, Weight: 25.8 kg, BMI: 15.4 kg/m2. Immunizations Immunizations are reported as current. [...] AAA-MED RECONCILE;per mother; RPT. Signature Signed By: Nilo Branham MA; 06/05/2010 11:08 AM OPERATIONS CLERK. ATIONS CLERK documented in this encounter Plan of Treatment Upcoming Encounters Date Type Specialty Care Team Description 07/27/2022 Ancillary Procedure Cardiology Cordell Juarez MD [address] [place] [address] (Arleen valdes) 07/27/2022 Office Visit Cardiology Cordell Juarez MD [address] [place] [address] (Arleen valdes) documented as of this encounter Visit Diagnoses Not on filedocumented in this encounter
--- OUTSIDE RECORDS SUMMARY | 2022-04-10 10:03 | XMS_ITS | Encounter Summary ---
:2000 Author Organization [place] Address [facility] [place] [address] Care Team Providers Name Role Phone Unavailable Primary Care Provider Unavailable Encounter Details Date Type Department Care Team Description 07/26/2010 Results Only [facility] Rudy Juarez MD Hospital Results [address] [place], [place] [id number] (Wo rk) Social History Tobacco Use Types [...] Ancillary Procedure Cardiology Cordell Juarez MD [address] [place] [phone] (Wo rk) 07/27/2022 Office Visit Cardiology Cordell Juarez MD [address] [place] [address] [phone] (Wo rk) documented as of this encounter Procedures Procedure Name Priority Date/Time Associated Diagnosis Comme nts ECHO PEDIATRIC Routine 07/26/2010 2:13 PM Results for this COMPLETE FLAT FOLDING MACHINE OPERATOR procedure are i n the results section. documented in this encounter Results Echo pediatric complete (07/26/2010 2:13 PM FLAT FOLDING MACHINE OPERATOR) Anatomical Region Laterality Modality Echocardiography Specimen (Source) Anatomical Collection Method Collection Time Re ceived Time Location / / Volume Laterality 07/26/2010 2:13 PM FLAT FOLDING MACHINE OPERATOR Impressions 08/25/2010 11:30 AM FLAT FOLDING MACHINE OPERATOR PEDIATRIC ECHOCARDIOGRAM ?? [facility] ? ?Echocardiogram Lab ? Age: ??1 ? Wt: ? Ht: ? BSA: ?BP: ? Xcelera ? Puller Through: ??kh INDICATION: ?? A cardiac ultrasound study based on an e xam which included: M-Mode ?2-D ? Doppler ? Color Flow CONCLUSION: ?? Double outlet right ventricle with a small left ventricular chamber status post Rory martinez anastomosis. Wide open Fontan limbs with no evidence of obstruc tion or leakage. Good systemic ventricular function. No perica rdial effusion is noted. Mild to moderate tricuspid regurgitation. In comparison to the most recent echocardiogram, no significant change is seen. ?? TWO-D ECHO: Recordings are performed from parasterna l, apical, subcostal and suprasternal notch windows. ??Previously identified anatomy of double outlet right ventricle with a hypoplasti c left ventricular chamber status post Fontan anastomosis is once a gain seen. Aortic and tricuspid valve motions are normal. The inferior and superior limbs of the Fontan anastomosis are easily vis ualized and appear widely patent. Left atrial size is normal. Once again left ventricular size is small. It has good contractility. The right ventricular contractility is excellent and there is mild right ventricular enlargement. There is no evidence of per icardial effusion. The aortic arch appears normal. The branch pulmonar y arteries are difficult to image in this study, but the right pulmo nary artery measures 7.8 mm in diameter. ? Not Evaluated Coronary arteries, coronary sinus. ? Doppler Report Color flow and spectral Doppler are util ized. There is no mitral regurgitation. There is mild to moderate tricuspid regurgitation appreciated. Normal flow is recorded in the proximal descending thoracic aorta (1 m/sec) and in the abdo herb aorta (0.8 m/sec). No aortic insufficiency is seen. ??[place] continuous antegrade flow is identified in both limbs of the Fonta n anastomosis. ?? Artemio Silva MD-Pager [phone] ?? Gayathri Ayala MD-Pager [phone] ?? Jorge Link MD-Pager [phone] or Cordell Juarez MD-Pager [phone] ?? Jayson Bailey MD-Pager [phone] Vilma Rucker MD-Pager [phone] Cordell Juarez MD CV PEDS ECHO ORDERABLES documented in this encounter Visit Diagnoses Not on filedocumented in this encounter
--- OUTSIDE RECORDS SUMMARY | 2022-04-10 10:04 | XMS_ITS | Encounter Summary ---
:2000 Author Organization [place] Address [address] [place] [address] Care Team Providers Name Role Phone Unavailable Primary Care Provider Unavailable Reason for Visit Reason Onset Date Comments Refill Request 09/20/2009 Focalin XR Encounter Details Date Type Department Care Team Description 09/20/2009 Refill [facility] Ignacio Solo MD Refill Request ([facility] Clinic [place] [address] XR) [address] [place] [address] [place], [place] [phone] (Wo rk) [address] [phone] Social History Tobacco Use Types Packs/Day Years Used Date Smoking Tobacco: Never Comments: none at home Alcohol Use Standard Drinks/Week Comments Not Asked 0 (1 standard drink = 0.6 oz pure alcoho l) Sex Assigned at Date Recorded Male 03/09/2019 1:21 PM CDT documented as of this encounter Miscellaneous Notes Telephone Encounter - Cheri Jurado - 09/20/2009 9:01 AM CDT rx placed at desk. Mom notified Telephone Encounter - Nu Zimmerman - 09/20/2009 8:25 AM CDT Mom calling for RF of focalin XR. Current dose is working well. Last o/v 06/15/09. Please call mom when rx is ready for p/u at front office associate. Nu Zimmerman RN documented in this encounter Plan of Treatment Upcoming Encounters Date Type Specialty Care Team Description 07/27/2022 Ancillary Procedure Cardiology Cordell Juarez MD [address] [facility] [place], [place] [address] (Wo rk) 07/27/2022 Office Visit Cardiology Cordell Juarez MD [address] [facility] [place], [place] [address] (Wo rk) documented as of this encounter Visit Diagnoses Diagnosis Attention deficit disorder with hyperact ivity(314.01) - Primary Attention deficit disorder with hyperact ivity documented in this encounter
--- OUTSIDE RECORDS SUMMARY | 2022-04-10 10:04 | XMS_ITS | Encounter Summary ---
:2000 Author Organization [place] Address [facility] [place] [address] Care Team Providers Name Role Phone Unavailable Primary Care Provider Unavailable Reason for Visit Reason Onset Date Comments Refill Request 01/25/2009 focalin Encounter Details Date Type Department Care Team Description 01/25/2009 Refill [facility] Ignacio Solo MD Refill Request Clinic [place] [address] (focalin) [address] [place] [address] [place], [place] [phone] (Wo rk) [address] [phone] Social History Tobacco Use Types Packs/Day Years Used Date Smoking Tobacco: Never Comments: none at home Alcohol Use Standard Drinks/Week Comments Not Asked 0 (1 standard drink = 0.6 oz pure alcoho l) Sex Assigned at Date Recorded Male 03/09/2019 1:21 PM CDT documented as of this encounter Miscellaneous Notes Telephone Encounter - Nu Zimmerman - 01/25/2009 12:25 PM CDT Notified mom rx at front office secretary. Nu Zimmerman RN Telephone Encounter - Ignacio Solo - 01/25/2009 12:18 PM CDT Notify mom rx is done Telephone Encounter - Cheri Jurado - 01/25/2009 11:22 AM CDT Mom stopped in requesting fill. I assume she'd like to p/u once ready documented in this encounter Plan of Treatment Upcoming Encounters Date Type Specialty Care Team Description 07/27/2022 Ancillary Procedure Cardiology Cordell Juarez MD [address] [facility] [address] [facility] [address] [place], [place] [address] (Wo rk) 07/27/2022 Office Visit Cardiology Cordell Juarez MD [address] [place], [place] [address] (Wo rk) documented as of this encounter Visit Diagnoses Diagnosis Attention deficit disorder with hyperact ivity(314.01) - Primary Attention deficit disorder with hyperact ivity documented in this encounter
--- OUTSIDE RECORDS SUMMARY | 2022-04-10 10:04 | XMS_ITS | Encounter Summary ---
:2000 Author Organization [place] Address [address] [place] [address] Care Team Providers Name Role Phone Unavailable Primary Care Provider Unavailable Reason for Visit Reason Onset Date Comments Refill Request 10/24/2009 Focalin XR Encounter Details Date Type Department Care Team Description 10/24/2009 MyC Refill [facility] Ignacio López Refi ll Request Clinic [place] DUP[place] (Focalin XR) [address] [place] [address] [phone] (Wo rk) Social History Tobacco Use Types Packs/Day Years Used Date Smoking Tobacco: Never Comments: none at home Alcohol Use Standard Drinks/Week Comments Not Asked 0 (1 standard drink = 0.6 oz pure alcoho l) Sex Assigned at Date Recorded Male 03/09/2019 1:21 PM CDT documented as of this encounter Miscellaneous Notes Telephone Encounter - Cheri Jurado - 10/25/2009 8:31 AM CDT Rx placed at desk. Left message for mom letting her know Telephone Encounter - Nu Zimmerman - 10/25/2009 8:25 AM CDT Last o/v 06/15/09. Please call mom when ready for p/u. Nu Zimmerman RN Telephone Encounter - Nu Zimmerman - 10/25/2009 8:24 AM CD[facility] Bills would like a refill of the following medications: FOCALIN XR 10 MG OR CP24 [IGNACIO LÓPEZ] Preferred pharmacy: [facility] Comment: This message is being sent by Jaimie Bills on behalf of Jude Josephase Call Jaimie - Mom [phone] when the prescription is ready. Needed by at the latest. documented in this encounter Plan of Treatment Upcoming Encounters Date Type Specialty Care Team Description 07/27/2022 Ancillary Procedure Cardiology Cordell Juarez MD [address] [facility] [address] [place] [address] (Wo rk) 07/27/2022 Office Visit Cardiology Cordell Juarez MD [address] [facility] [address] [place] [address] (Wo rk) documented as of this encounter Visit Diagnoses Diagnosis Attention deficit disorder with hyperact ivity(314.01) Attention deficit disorder with hyperact ivity documented in this encounter
--- OUTSIDE RECORDS SUMMARY | 2022-04-10 10:04 | XMS_ITS | Encounter Summary ---
:2000 Author Organization [place] Address [facility] [place] [address] Care Team Providers Name Role Phone Unavailable Primary Care Provider Unavailable Encounter Details Date Type Department Care Team Description 01/12/2009 Office Visit-[facility] Cordell Juarez MD [address] [facility] [place] [address] (Wo rk) Social History Tobacco Use Types Packs/Day Years Used Date Smoking Tobacco: Never Comments: none at home Alcohol Use Standard Drinks/Week Comments Not Asked 0 (1 standard drink = 0.6 oz pure alcoho l) Sex Assigned at Date Recorded Male 03/09/2019 1:21 PM CDT documented as of this encounter Progress Notes Cordell Juarez - 01/12/2009 1:15 PM CDT Tool Hardener: Cordell Juarez Status: Final - Signature Encounter: 12 Jan 2009 Type: [facility] Division of Pediatric Cardiology Department of Pediatrics Pediatric Specialty Clinic - [address], [address] [place] [address] January 12, 2009 Ignacio Solo MD [facility] [address], [address] [place], [place] RE: Jude Bills : 2000 MARTHA: 01/12/2009 Dear Ignacio: I had the pleasure of seeing your patient, Jude Bills, in the Pediatric Cardiology Clinic at the [facility] on January 12, 2009. 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 His other medical issues are bleeding disorder with several episodes of clinically significant bleeding and malrotation associated with hisheterotaxy syndrome. Jude was last seen in our clinic in July 2008 and at that time he was doingwell. He had been started on Focalin for ADHD and had decreased appetite. He had been doing well until the last month or so when he has been complaining of episodes of chest pain that feels like a bee sting over his left chest. He had one of these episodes while at camp and was referred for evaluation. In addition, on further questioning, his mother has noted that he had an episode of chest pain while staying at his aunt's house. In addition to these episodes of localized chest pain, Jude has also been complaining of episodes of dizziness and headaches associated with a feeling of slight nausea andheart pain. Jude has had no decreased exercise tolerance. His mother has not witnessed any of these episodes so has not taken a heart rate or noted any other symptoms. Jude's medications have not changed since his visit in July. They are one baby aspirin daily, digoxin 0.125 mg once daily, Focalin XR 10 mg extended release capsule and lisinopril 10 mg tablets. On physical examination today, Jude initially looks well and is comfortable. He has no central or peripheral cyanosis. He has a well healed midline sternotomy scar. His lungs are clear to auscultation.He has a normally placed apical impulse with a normal S1 and a single S2 and a grade 2 to 3/6 systolic ejection murmur at the left upper sternal border. Abdominal examination is benign with no hepatosplenomegaly or masses. Extremities are without edema or clubbing and pulses are good. Toward the end of our clinic visit, Jude began to complain of a headache and some chest pain. His examination was unchanged at that time with a heart rate of 70. This episode lasted for approximately 20 to 30 minutes and resolved spontaneously. We did do two ECGs while Jude was here in clinic. The first was done after one pm and revealed normal sinus rhythm at a rate of 73 beats per minute with normal intervals. There was a pattern of right ventricular hypertrophy and left axis deviation. An ECG done at 2:45, as the chest pain was resolving,revealed a heart rate of 76 beats per minute, again normal intervals with an unchanged ECG pattern. In summary, Jude is an [age] year old child with a history of heterotaxy, complex congenital heart disease, status post fenestrated Fontan and is now two years status post a fenestration closure. At this time there is no evidence of ongoing ischemia or decreased heart function. However, his symptoms are concerning for possible arrhythmia. At this time we will place a 30 day event recorder so Jude canmonitor his heart rate during symptoms. In the meantime, we will continue observation and his motherwill let me know of any changes in his clinical status. I will followup with Jaimie with the event recorder when those results are available. I thank you for the opportunity to follow Jude with you and I hope that you or Jaimie will not hesitate to contact me if you have any questions or concerns about his cardiovascular status. Sincerely, Cordell Juarez M.D. Architecture Technician Pediatric Cardiology [id number] cc: Jaimie Bills [address] [place] [address] Electronically signed by:Cordell Juarez M.D. Jan 14 2009 9:53AM HOSPICE CASE MANAGER documented in this encounter Plan of Treatment Upcoming Encounters Date Type Specialty Care Team Description 07/27/2022 Ancillary Procedure Cardiology Cordell Juarez MD [address] [facility] [place] [address] (Wo rk) 07/27/2022 Office Visit Cardiology Larry, Cordell skelton MD [address] [facility] [place] [address] (Wo rk) documented as of this encounter Visit Diagnoses Not on filedocumented in this encounter
--- OUTSIDE RECORDS SUMMARY | 2022-04-10 10:04 | XMS_ITS | Encounter Summary ---
:2000 Author Organization [place] Address [address] [place] [address] Care Team Providers Name Role Phone Unavailable Primary Care Provider Unavailable Encounter Details Date Type Department Care Team Description 01/12/2009 Office Visit-[facility] INTERFACE [facility] DEPT Provider, [facility] Nurs e Social History Tobacco Use Types Packs/Day Years Used Date Smoking Tobacco: Never Comments: none at home Alcohol Use Standard Drinks/Week Comments Not Asked 0 (1 standard drink = 0.6 oz pure alcoho l) Sex Assigned at Date Recorded Male 03/09/2019 1:21 PM CDT documented as of this encounter Progress Notes Provider, [facility] Nurse - 01/12/2009 1:15 PM CDT Truck Driving Instructor: Laney Morillo Status: Final Encounter: 12 Jan 2009 Type: Rooming Note Informant Parent is informant unless otherwise noted. Reason For Visit [chest pain ] Do you have any other appointments, tests or procedures within the [facility] system for this same day? No. Pain Eval Current history of pain associated with this visit is denied. Vital Signs Position for height measurement: standing Blood pressure taken with: electronic BP machine. Recorded by Laney Morillo on 12 Jan 2009 01:33 PM BP:87/53, RUE, Sitting, HR: 68 b/min, Resp: 26 r/min, Height: 123 cm, Weight: 23.3 kg, BMI: 15.4 kg/m2, O2 Sat: 100 (%SpO2). Immunizations Immunizations are reported as current. Allergies Captopril TABS. Current Meds Meds List Printed and given to patient. Focalin XR 10 MG Capsule Extended Release 24 Hour;TAKE 1 CAPSULE DAILY.; RPT Aspirin 81 MG Tablet Chewable;CHEW AND SWALLOW 1 TABLET DAILY.; RPT Digoxin 0.125 MG Tablet;TAKE 1 TABLET DAILY.; Rx Lisinopril 10 MG Tablet;TAKE 1/2 TABLET DAILY.; Rx AAA-MED RECONCILE;per mother; RPT. Teaching Flowsheet Teaching not applicable. Signature Signed By: Laney Morillo L.P.N.; 01/12/2009 1:49 PM FLORAL ASSOCIATE. documented in this encounter Plan of Treatment Upcoming Encounters Date Type Specialty Care Team Description 07/27/2022 Ancillary Procedure Cardiology Cordell Juarez MD [address] [facility] [address] [place], [place] [address] (Arleen valdes) 07/27/2022 Office Visit Cardiology Cordell Juarez MD [address] [place], [place] [address] (Arleen valdes) documented as of this encounter Visit Diagnoses Not on filedocumented in this encounter
--- OUTSIDE RECORDS SUMMARY | 2022-04-10 10:04 | XMS_ITS | Encounter Summary ---
:2000 Author Organization [place] Address [facility] [place] [address] Care Team Providers Name Role Phone Unavailable Primary Care Provider Unavailable Reason for Visit Reason Onset Date Comments Refill Request 08/18/2009 Focalin XR Encounter Details Date Type Department Care Team Description 08/18/2009 Refill [facility] Ignacio Solo MD Refill Request ([facility]in [facility] [place] [address] XR) [address] [place] [address] [place], [place] [phone] (Wo rk) [address] [phone] Social History Tobacco Use Types Packs/Day Years Used Date Smoking Tobacco: Never Comments: none at home Alcohol Use Standard Drinks/Week Comments Not Asked 0 (1 standard drink = 0.6 oz pure alcoho l) Sex Assigned at Date Recorded Male 03/09/2019 1:21 PM CDT documented as of this encounter Miscellaneous Notes Telephone Encounter - Cheri Jurado - 08/18/2009 2:35 PM CST Signed by . Left at desk for p/u. Left message for mom letting her know GRINDER Telephone Encounter - Nu Zimmerman - 08/18/2009 1:18 PM CST Mom calling for RF of Focalin XR. Last o/v 06/15/09. Current dose is working well. Please call mom when rx is ready for p/u. Nu Zimmerman RN GRINDER documented in this encounter Plan of Treatment Upcoming Encounters Date Type Specialty Care Team Description 07/27/2022 Ancillary Procedure Cardiology Cordell Juarez MD [address] [facility] [address] [place], [place] [address] (Wo rk) 07/27/2022 Office Visit Cardiology Cordell Juarez MD [address] [facility] [address] [place] [address] (Wo rk) documented as of this encounter Visit Diagnoses Diagnosis Attention deficit disorder with hyperact ivity(314.01) Attention deficit disorder with hyperact ivity documented in this encounter
--- OUTSIDE RECORDS SUMMARY | 2022-04-10 10:04 | XMS_ITS | Encounter Summary ---
:2000 Author Organization [place] Address [address] [place] [address] Care Team Providers Name Role Phone Unavailable Primary Care Provider Unavailable Reason for Visit Reason Onset Date Comments Refill Request 12/16/2008 Encounter Details Date Type Department Care Team Description 12/16/2008 Refill [facility] Ignacio Solo MD Refill Request [place] [address] [facility] [address] [place] [address] [place] [address] [phone] Social History Tobacco Use Types Packs/Day Years Used Date Smoking Tobacco: Never Comments: none at home Alcohol Use Standard Drinks/Week Comments Not Asked 0 (1 standard drink = 0.6 oz pure alcoho l) Sex Assigned at Date Recorded Male 03/09/2019 1:21 PM CDT documented as of this encounter Miscellaneous Notes Telephone Encounter - Ignacio Solo - 12/16/2008 10:01 AM CDT Rx done Telephone Encounter - Marguerite Morrison - 12/16/2008 9:52 AM CDT Mom stopped in wanting rx refill of her child's medication as he will be out and she needs it for this weekend. Please refill and she will cloth picker from the desk officer later today. Marguerite Morrison WHAT JOB TITLES MEAN documented in this encounter Plan of Treatment Upcoming Encounters Date Type Specialty Care Team Description 07/27/2022 Ancillary Procedure Cardiology Cordell Juarez MD [address] [place] [address] (Wo rk) 07/27/2022 Office Visit Cardiology Cordell Juarez MD [address] [place] [address] (Wo rk) documented as of this encounter Visit Diagnoses Diagnosis Attention deficit disorder with hyperact ivity(314.01) - Primary Attention deficit disorder with hyperact ivity documented in this encounter
--- OUTSIDE RECORDS SUMMARY | 2022-04-10 10:04 | XMS_ITS | Encounter Summary ---
:2000 Author Organization [place] Address [address] [place] [address] Care Team Providers Name Role Phone Unavailable Primary Care Provider Unavailable Encounter Details Date Type Department Care Team Description 01/12/2009 Historic Results INTERFACED REPORT Interface, Hetal modi [...] 07/27/2022 Ancillary Procedure Cardiology Cordell Juarez MD [address] [place] [phone] (Wo rk) 07/27/2022 Office Visit Cardiology Cordell Juarez MD [address] [place] [address] [phone] (Wo rk) documented as of this encounter Procedures Procedure Name Priority Date/Time Associated Diagnosis Comme nts EKG 12 LEAD Routine 01/12/2009 1:38 PM Results f or this CDT procedure are i n the results section . documented in this encounter Results EKG 12 LEAD (01/12/2009 1:38 PM CDT) Component Value Ref Range Test Analysis Performed Pathologis t Method Time At Signature Ventricular Rate 73 BPM RADIOLOGY RESULTS Atrial Rate 73 BPM RADIOLOGY RESULTS CA Interval 144 ms RADIOLOGY RESULTS QRS Duration 74 ms RADIOLOGY RESULTS QT 356 ms RADIOLOGY RESULTS QTc 392 ms RADIOLOGY RESULTS P [place] 20 degrees RADIOLOGY RESULTS R AXIS -81 degrees RADIOLOGY RESULTS T [place] 61 degrees RADIOLOGY RESULTS Interpretation * Pediatric ECG Analysis * RADIOLOGY ECG Sinus rhythm RESULTS Left axis deviation Right ventricular hypertrophy with strain pattern No change from baseline Specimen Anatomical Collection Method Collection Time Receive d Time (Source) Location / / Volume Laterality 01/12/2009 1:38 PM 9 7:35 CDT AM CDT Transcripton Interface ECG ORDERABLES Performing Organization Address City/State/ZIP Code Phon e Number RADIOLOGY RESULTS documented in this encounter Visit Diagnoses Not on filedocumented in this encounter
--- OUTSIDE RECORDS SUMMARY | 2022-04-10 10:04 | XMS_ITS | Encounter Summary ---
:2000 Author Organization [place] Address Formerly [facility], [id number] [facility] [place] [address] Care Team Providers Name Role Phone Unavailable Primary Care Provider Unavailable Encounter Details Date Type Department Care Team Description 08/10/[address] [facility] Rudy Juarez MD Hospital Results [address] [place], [place] [address] (Wo rk) Social History Tobacco Use Types [...] Ancillary Procedure Cardiology Cordell Juarez MD [address] [place] [address] [phone] (Wo rk) 07/27/2022 Office Visit Cardiology Cordell Juarez MD [address] [place] [address] [phone] (Wo rk) documented as of this encounter Procedures Procedure Name Priority Date/Time Associated Diagnosis Comme nts HC DOPPLER ECHO Routine 08/10/2009 11:35 AM Resul ts for this COLOR FLOW VELOCITY REDUCING SALON ATTENDANT procedur e are in MAP the results section. documented in this encounter Results DOPPLER COLOR FLOW VELOCITY MAP (08/10/2009 11:35 AM REDUCING SALON ATTENDANT) Anatomical Region Laterality Modality Other Specimen (Source) Anatomical Collection Method Collection Time Re ceived Time Location / / Volume Laterality 08/10/2009 11:35 AM REDUCING SALON ATTENDANT Impressions 08/10/2009 5:18 PM REDUCING SALON ATTENDANT PEDIATRIC ECHOCARDIOGRAM [facility] ? ?Echocardiogram Lab ? Age: ??1 ? Wt: ? Ht: ? BSA: ?BP: ? Xcelera ? Ultrasonographer: ??KBINDICATION: ??DORV A cardiac ultrasound study based on an e xam which included: M-Mode ? 2-D ?Doppler ? 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 Fortino and Fontan anastomo ses have been performed, and an Amplatzer septal occluder device plac ed in an atrial baffle leak. Right ventricular function is mildly dim inished with a calculated ejection fraction of 40% and a dP/dt of 970 mmHg/sec. Since the echocardiogram of 07/28/08, no significan t change. M-Mode Report 1. ??No ECG is recorded. TWO-D ECHO: Recordings are performed from parasterna l, apical, subcostal and suprasternal notch windows. ?Anatomi c relationships are normal. ?? Aortic, mitral, pulmonary and tricuspid valve motions are normal. ??A small Amplatzer septal occluder device i s demonstrated through the atrial baffle. Left atrial size is cricket l. The single plane right ventricular ejection fraction calculated from a subcostal window is 40%. ??There is no evidence of pericardi al effusion. Not Evaluated The systemic venous return, coronary sin us, coronary arteries and pulmonary veins were not evaluated. Doppler Report Color flow and spectral Doppler are util ized. There is no mitral regurgitation. There is 1+ tricuspid reg urgitation. The calculated dP:dt is 970 mmHg/sec. Normal flows are recorded in the left ventricular outflow tract, ascending aor ta and in the descending thoracic and abdominal aorta. There is n o evidence of a [id number] shunt at atrial, ventricular or great ar garret levels. Artemio Silva MD-Pager [phone] Gayathri Ayala MD-Pager [phone] Jorge Link MD-Pager [phone] or Cordell Juarez MD-Pager [phone] Jayson Bailey MD-Pager [phone] Vilma Rucker MD-Pager [phone] Cordell Juarez MD SPECIAL IMAGING STUDIES documented in this encounter Visit Diagnoses Not on filedocumented in this encounter
--- OUTSIDE RECORDS SUMMARY | 2022-04-10 10:04 | XMS_ITS | Encounter Summary ---
:2000 Author Organization [place] Address [address] [place] [address] Care Team Providers Name Role Phone Unavailable Primary Care Provider Unavailable Reason for Visit Reason Comments Recheck Medication Encounter Details Date Type Department Care Team Description 06/15/[address] [facility] Ignacio Solo, Need for Prophylactic Vaccination and Inoculation Against Influenza (Primary Dx); Clinic Meir DUPREE Attention Deficit Disorder with Hyperact ivity [address] [place] [address] [phone] Social History Tobacco Use Types Packs/Day Years Used Date Smoking Tobacco: Never Comments: none at home Alcohol Use Standard Drinks/Week Comments Not Asked 0 (1 standard drink = 0.6 oz pure alcoho l) Sex Assigned at Date Recorded Male 03/09/2019 1:21 PM CDT documented as of this encounter Last Filed Vital Signs Vital Sign Reading Time Taken Comments Blood Pressure 108/64 06/15/2009 4:21 PM SCREEN PRINTING MACHINE LOADER UNLOADER Pulse - - Temperature - - Respiratory Rate - - Oxygen Saturation - - Inhaled Oxygen Concentration - - Weight 25.2 kg (55 lb 8 oz) 06/15/2009 4:21 PM SCREEN PRINTING MACHINE LOADER UNLOADER Height 125.7 cm (4' 1.5) 06/15/2009 4:21 PM SCREEN PRINTING MACHINE LOADER UNLOADER Body Mass Index 15.93 06/15/2009 4:21 PM SCREEN PRINTING MACHINE LOADER UNLOADER Body Mass Index Percentile 41.45 % 06/15/2009 4:21 PM CS T Growth Chart: [facility] (Boys, 2-20 Years) documented in this encounter Progress Notes Ignacio Solo Alexandro - 06/18/2009 10:11 AM CST SUBJECTIVE Jude Bills is a 9 year old male, accompanied by his father and mother for a medication check and ADHD follow up. CURRENT CONCERNS None, doing well with medication. School going ok, no problems with med Past Medical History Diagnosis Date ??? 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 INTESTINAL FIXATION ANOM s/p [place] procedure 03/2006 ??? ESOPHAGEAL REFLUX ??? ANOMALIES OF SPLEEN Polysplenia CURRENT PRESCRIPTIONS Focalin xr 10mg MEDICATION BENEFITS Controlled symptoms: Hyperactivity - motor restlessness, Attention span, Distractability, Finishing tasks, Impulse control, Frustration tolerance, Accepting limits and Peer relations Uncontrolled symptoms: None MEDICATION SIDE EFFECTS Has: appetite suppression Denies: weight loss, insomnia, tics, palpitations, stomach ache, headache, emotional lability, rebound irritability and drowsiness SCHOOL doing better this year. TEACHER FEEDBACK: Better focus SCHOOL SERVICES/MODIFICATIONS has IEP FAMILY/HOME ENVIRONMENT: No changes OBJECTIVE BP 108/64 Ht 4' 1.5 (1.257 m) Wt 55 lb 8 oz (25.175 kg) EXAM: GENERAL: Alert and interactive with good eye contact, answering questions appropriately EYES: Normal extra-ocular movements. Fundoscopic exam normal with sharp optic disks. NECK: Normal thyroid. No significant adenopathy. LUNGS: Clear HEART: Normal rate and rhythm. Normal S1 and S2. No murmurs. ABDOMEN: Soft, nontender, no organomegaly. NEURO: Normal finger to nose without ataxia. No tremor. Normal tone and strength. Normal deep tendonreflexes and downgoing toes. Normal gait and balance. ASSESSMENT ADHD--combined type PLAN Medication: Focalin xr 10mg Regular cardiology f/u Follow-up: Within 6 months EN PRINTING MACHINE LOADER UNLOADER documented in this encounter Nursing Notes 06/15/2009 4:15 PM CST >> CHERI JURADO SatJun 15, 2009 4:38 PM Jude Bills 1. Has the patient received the information for the influenza vaccine? YES 2. Does the patient have any of the following contraindications? Allergy to eggs? No Allergic reaction to previous influenza vaccines? No Any other problems to previous influenza vaccines? No Paralyzed by Guillain-Sussex syndrome? No Currently ? NO Current moderate or severe illness? No Allergy to contact lens solution? No 3. The vaccine has been administered in the usual fashion and the patient was instructed to wait 20 minutes before leaving the building in the event of an allergic reaction: YES Vaccination given by AQ. Recorded by Cheri Jurado >> CHERI JURADO SatJun 15, 2009 4:22 PM Patient presents with: Recheck Medication Initial BP 108/64 Ht 4' 1.5 (1.257 m) Wt 55 lb 8 oz (25.175 kg) Body mass index is 15.93 kg/(m^2).. BP completed using cuff size: pediatric documented in this encounter Plan of Treatment Upcoming Encounters Date Type Specialty Care Team Description 07/27/2022 Ancillary Procedure Cardiology Larry, Cordell Jenn, [facility] [address] [facility] [address] [address] [place], [place] [phone] (Wo rk) 07/27/2022 Office Visit Cardiology Cordell Juarez MD [address] [place], [place] [phone] (Wo rk) documented as of this encounter Visit Diagnoses Diagnosis Need for prophylactic vaccination and in oculation against influenza - Primary Attention deficit disorder with hyperact ivity(314.01) Attention deficit disorder with hyperact ivity documented in this encounter
--- OUTSIDE RECORDS SUMMARY | 2022-04-10 10:04 | XMS_ITS | Encounter Summary ---
:2000 Author Organization [place] Address [address] [place] [address] Care Team Providers Name Role Phone Unavailable Primary Care Provider Unavailable Encounter Details Date Type Department Care Team Description 08/10/2009 Historic Results INTERFACED REPORT Interface, Hetal modi [...] Ancillary Procedure Cardiology Cordell Juarez MD [address] [place] [phone] (Wo rk) 07/27/2022 Office Visit Cardiology Cordell Juarez MD [address] [place] [address] [phone] (Wo rk) documented as of this encounter Procedures Procedure Name Priority Date/Time Associated Diagnosis Comme nts EKG 12 LEAD Routine 08/10/2009 11:24 AM Results for this EXPERIMENTAL FLIGHT TEST MECHANIC procedure are i n the results section . documented in this encounter Results EKG 12 LEAD (08/10/2009 11:24 AM EXPERIMENTAL FLIGHT TEST MECHANIC) Component Value Ref Range Test Analysis Performed Pathologis t Method Time At Signature Ventricular Rate 81 BPM RADIOLOGY RESULTS Atrial Rate 81 BPM RADIOLOGY RESULTS MD Interval 120 ms RADIOLOGY RESULTS QRS Duration 82 ms RADIOLOGY RESULTS QT 348 ms RADIOLOGY RESULTS QTc 404 ms RADIOLOGY RESULTS P [place] 93 degrees RADIOLOGY RESULTS R AXIS -79 degrees RADIOLOGY RESULTS T [place] 68 degrees RADIOLOGY RESULTS Interpretation * Pediatric ECG Analysis * RADIOLOGY ECG Low atrial rhythm RESULTS Left axis deviation Right ventricular hypertrophy with strain pattern Specimen Anatomical Collection Method Collection Time Receive d Time (Source) Location / / Volume Laterality 08/10/2009 11:24 09/08/2009 4:19 AM EXPERIMENTAL FLIGHT TEST MECHANIC PM CDT Transcripton Interface ECG ORDERABLES Performing Organization Address City/State/ZIP Code Phon e Number RADIOLOGY RESULTS documented in this encounter Visit Diagnoses Not on filedocumented in this encounter
--- OUTSIDE RECORDS SUMMARY | 2022-04-10 10:04 | XMS_ITS | Encounter Summary ---
:2000 Author Organization [place] Address [facility] [place] [address] Care Team Providers Name Role Phone Unavailable Primary Care Provider Unavailable Reason for Visit Reason Onset Date Comments Medication Request 02/17/2009 Tamiflu Encounter Details Date Type Department Care Team Description 02/17/2009 Telephone [facility] Ignacio Solo, [facility] Meir DUPREE (Tamiflu) [address] [place], [place] [id number] [phone] Social History Tobacco Use Types Packs/Day Years Used Date Smoking Tobacco: Never Comments: none at home Alcohol Use Standard Drinks/Week Comments Not Asked 0 (1 standard drink = 0.6 oz pure alcoho l) Sex Assigned at Date Recorded Male 03/09/2019 1:21 PM CDT documented as of this encounter Miscellaneous Notes Telephone Encounter - Cheri Jurado - 02/17/2009 4:39 PM CDT Left message for mom letting her know Telephone Encounter - Ignacio Solo - 02/17/2009 3:57 PM CDT Notify mom rx was sent to [facility] pharmacy Telephone Encounter - Cheri Jurado - 02/17/2009 3:52 PM CDT Yes, they do Telephone Encounter - Ignacio Solo - 02/17/2009 3:50 PM CDT Check if pharmacy has liquid tamiflu Telephone Encounter - Nu Zimmerman - 02/17/2009 2:17 PM CDT Mom calling--pt's sibling is symptomatic for H1N1 after exposure [place] the [place]. Pt's other family members are being treated. Dr. Juarez (cardiology) would like pt to have Tamiflu, but was unsure of dosing and would like PCP to order. Please call mom once rx has been approved. Nu Zimmerman RN documented in this encounter Plan of Treatment Upcoming Encounters Date Type Specialty Care Team Description 07/27/2022 Ancillary Procedure Cardiology Cordell Juarez MD [address] [place] [address] (Wo rk) 07/27/2022 Office Visit Cardiology [facility]arez [facility] [address] [facility] [address] [place] [address] (Wo rk) documented as of this encounter Visit Diagnoses Diagnosis Exposure to influenza Contact with or exposure to other viral diseases documented in this encounter
--- OUTSIDE RECORDS SUMMARY | 2022-04-10 10:04 | XMS_ITS | Encounter Summary ---
:2000 Author Organization [place] Address [facility] [place] [address] Care Team Providers Name Role Phone Unavailable Primary Care Provider Unavailable Reason for Visit Reason Onset Date Comments Refill Request 04/07/2009 Focalin XR Encounter Details Date Type Department Care Team Description 04/07/2009 Refill [facility] Ignacio Solo MD Refill Request (Focalin Clinic [place] [address] XR) [address] [place] [address] [place], [place] [phone] (Wo rk) [address] [phone] Social History Tobacco Use Types Packs/Day Years Used Date Smoking Tobacco: Never Comments: none at home Alcohol Use Standard Drinks/Week Comments Not Asked 0 (1 standard drink = 0.6 oz pure alcoho l) Sex Assigned at Date Recorded Male 03/09/2019 1:21 PM CDT documented as of this encounter Miscellaneous Notes Telephone Encounter - Cheri Jurado - 04/07/2009 2:18 PM CDT Rx placed at desk. Mom notified Telephone Encounter - Ignacio Solo - 04/07/2009 12:08 PM CDT Rx done Telephone Encounter - Nu Zimmerman - 04/07/2009 11:48 AM CDT Mom calling for RF of Focalin XR. Last o/v 12/16/08. Current dose is working well. Please call mom when rx is ready for p/u. Nu Zimmerman RN documented in this encounter Plan of Treatment Upcoming Encounters Date Type Specialty Care Team Description 07/27/2022 Ancillary Procedure Cardiology Codrell Juarez MD [address] [place] [address] (Wo rk) 07/27/2022 Office Visit Cardiology Cordell Juarez MD [address] [place] [address] (Wo rk) documented as of this encounter Visit Diagnoses Diagnosis Attention deficit disorder with hyperact ivity(314.01) Attention deficit disorder with hyperact ivity documented in this encounter
--- OUTSIDE RECORDS SUMMARY | 2022-04-10 10:04 | XMS_ITS | Encounter Summary ---
:2000 Author Organization [place] Address [facility] [place] [address] Care Team Providers Name Role Phone Unavailable Primary Care Provider Unavailable Reason for Visit Reason Onset Date Comments Refill Request 12/28/2009 focalin Encounter Details Date Type Department Care Team Description 12/28/2009 Refill [facility] Ignacio Solo MD Refill Request Clinic [place] [address] (focalin) [address] [place] [address] [place], [place] [phone] (Wo rk) [address] [phone] Social History Tobacco Use Types Packs/Day Years Used Date Smoking Tobacco: Never Comments: none at home Alcohol Use Standard Drinks/Week Comments Not Asked 0 (1 standard drink = 0.6 oz pure alcoho l) Sex Assigned at Date Recorded Male 03/09/2019 1:21 PM CDT documented as of this encounter Miscellaneous Notes Telephone Encounter - Cheri Jurado - 12/28/2009 1:02 PM CDT Dad requesting fill, please advise documented in this encounter Plan of Treatment Upcoming Encounters Date Type Specialty Care Team Description 07/27/2022 Ancillary Procedure Cardiology Cordell Juarez MD [address] [place], [place] [address] (Wo rk) 07/27/2022 Office Visit Cardiology Cordell Juarez MD [address] [place], [place] [phone] (Wo rk) documented as of this encounter Visit Diagnoses Diagnosis Attention deficit disorder with hyperact ivity(314.01) - Primary Attention deficit disorder with hyperact ivity documented in this encounter
--- OUTSIDE RECORDS SUMMARY | 2022-04-10 10:04 | XMS_ITS | Encounter Summary ---
:2000 Author Organization [place] Address [address] [place] [address] Care Team Providers Name Role Phone Unavailable Primary Care Provider Unavailable Encounter Details Date Type Department Care Team Description 03/14/2010 Orders Only [facility] Blood Stool Laboratory [address] [place] [address] Social History Tobacco Use [...] Cardiology Cordell Juarez MD [facility] [place] [address] [place], [place] [address] (Wo rk) 07/27/2022 Office Visit Cardiology Cordell Juarez MD [address] [place] [address] [place], [place] [address] (Arleen rk) documented as of this encounter Procedures Procedure Name Priority Date/Time Associated Comments Diagnosis ZZCL FECAL Routine 03/14/2010 7:00 AM Blood Stool Results f or this COLORECTAL CANCER CDT procedure are in [facility] the results section. documented in this encounter Results STOOL TEST BLOOD (03/14/2010 7:00 AM CDT) Analysis Performed At Patho logist Time Signature Occult Blood Negative [facility]G [facility] Scn [facility] Specimen Anatomical Collection Method Collection Time Receive d Time (Source) Location / / Volume Laterality 03/14/2010 7:00 AM 0 8:44 CDT AM CDT Randy Hernandez MD LABORATORY Performing Organization Address City/State/ZIP Code Phon e Number [facility] [address] [place] [address] [facility] documented in this encounter Visit Diagnoses Diagnosis Blood stool Blood in stool documented in this encounter
--- OUTSIDE RECORDS SUMMARY | 2022-04-10 10:04 | XMS_ITS | Encounter Summary ---
:2000 Author Organization [place] Address [facility] [place] [address] Care Team Providers Name Role Phone Unavailable Primary Care Provider Unavailable Reason for Visit Reason Onset Date Comments Refill Request 05/11/2009 Focalin XR 10 mg. Encounter Details Date Type Department Care Team Description 05/11/2009 Refill [facility] Ignacio Solo MD Refill Request (Focalin Clinic [place] [address] XR 10 mg. ) [address] [place] [address] [place], [place] [phone] (Wo rk) [address] [phone] Social History Tobacco Use Types Packs/Day Years Used Date Smoking Tobacco: Never Comments: none at home Alcohol Use Standard Drinks/Week Comments Not Asked 0 (1 standard drink = 0.6 oz pure alcoho l) Sex Assigned at Date Recorded Male 03/09/2019 1:21 PM CDT documented as of this encounter Miscellaneous Notes Telephone Encounter - Cheri Jurado - 05/11/2009 4:26 PM CST Rx placed at desk. Mom notified of need for f/u appt T LINER HELPER Telephone Encounter - Ignacio Solo - 05/11/2009 2:41 PM CST Rx done. Advise to f/u before next refill request T LINER HELPER Telephone Encounter - Yessi Hernandez - 05/11/2009 1:30 PM CST Mom requests refill, current dose is working well. Mom would like to brass pickler rx today. Last o.v. 7.2.09. T LINER HELPER documented in this encounter Plan of Treatment Upcoming Encounters Date Type Specialty Care Team Description 07/27/2022 Ancillary Procedure Cardiology Cordell Juarez MD [address] [place] [address] (Wo rk) 07/27/2022 Office Visit Cardiology Cordell Juarez MD [address] [place] [address] (Wo rk) documented as of this encounter Visit Diagnoses Diagnosis Attention deficit disorder with hyperact ivity(314.01) Attention deficit disorder with hyperact ivity documented in this encounter
--- OUTSIDE RECORDS SUMMARY | 2022-04-10 10:04 | XMS_ITS | Encounter Summary ---
:2000 Author Organization [place] Address [address] [place] [address] Care Team Providers Name Role Phone Unavailable Primary Care Provider Unavailable Encounter Details Date Type Department Care Team Description 04/11/2009 [facility] Health/Nurse Visit Clinic [place] (Primary Dx) [address] [place] [address] Social History Tobacco Use Types [...] 07/27/2022 Ancillary Procedure Cardiology Cordell Juarez MD [facility] [place], [place] [address] (Arleen valdes) 07/27/2022 Office Visit Cardiology Cordell Juarez MD [address] [facility] [address] [place], [place] [address] (Arleen valdes) documented as of this encounter Visit Diagnoses Diagnosis Preventative health care - Primary Routine general medical examination at a health care facility documented in this encounter
--- OUTSIDE RECORDS SUMMARY | 2022-04-10 10:04 | XMS_ITS | Encounter Summary ---
:2000 Author Organization [place] Address [address] [facility] [place] [address] Care Team Providers Name Role Phone Unavailable Primary Care Provider Unavailable Encounter Details Date Type Department Care Team Description 08/10/2009 Historic Results [facility] Alden Juarez MD [facility] [address] [facility] [address] [place] [address] [place], [place] [phone] (Wo rk) Social History Tobacco Use Types [...] Ancillary Procedure Cardiology Cordell Juarez MD [address] [place] [id number] (Wo rk) 07/27/2022 Office Visit Cardiology Cordell Juarez MD [facility] [address] [id number] (Wo rk) documented as of this encounter Procedures Procedure Name Priority Date/Time Associated Comments Diagnosis IGG Routine 08/10/2009 12:25 Results for this PM GLAZE MIXER procedure are i n the results section. CBC WITH PLATELETS & Routine 08/10/2009 12:25 Res ults for this DIFFERENTIAL PM GLAZE MIXER procedure are i n the results section. TSH WITH FREE T4 Routine 08/10/2009 12:25 Results for this REFLEX PM GLAZE MIXER procedure are i n the results section. N TERMINAL PRO BNP Routine 08/10/2009 12:25 Resul ts for this OUTPATIENT PM GLAZE MIXER procedure are i n the results section. COMPREHENSIVE Routine 08/10/2009 12:25 Results fo r this METABOLIC PANEL PM GLAZE MIXER procedure ar e in the results section. ANTITHROMBIN III Routine 08/10/2009 12:25 Results for this PM GLAZE MIXER procedure are i n the results section. documented in this encounter Results Antithrombin III (08/10/2009 12:25 PM GLAZE MIXER) P athologist Signature Antithrombin III 89 80 - 120 % [place] Chromogenic Specimen Anatomical Collection Method Collection Time Receive d Time (Source) Location / / Volume Laterality 08/10/2009 12:25 08/10/2009 PM GLAZE MIXER 12:17 PM GLAZE MIXER Cordell Juarez MD LAB - BLOOD ORDERABLES Performing Organization Address City/State/ZIP Code Phon e Number [place] (ABNORMAL) CBC with platelets differential (08/10/2009 12:25 PM GLAZE MIXER) Patholo gist Method Time Signature MCV 81 70 - 100 [place] fl MCH 27.5 26.5 - [place] 33.0 pg MCHC 33.8 31.5 - [place] 36.5 g/dL RDW 13.1 10.0 - [place] 15.0 % WBC 6.8 5.0 - [place] 14.5 10e9/L RBC Count 4.87 3.7 - 5.3 [place] 10e12/L Hemoglobin 13.4 10.5 - [place] 14.0 g/dL Hematocrit 39.6 31.5 - [place] 43.0 % % Neutrophils 41 32 - 54 % [place] % Lymphocytes 44 27 - 57 % [place] % Monocytes 12 (H) 0 - 10 % [place] % Eosinophils 2 0 - 6 % [place] % Basophils 1 0 - 1 % [place] Platelet Count 268 150 - 450 [place] 10e9/L Absolute 2.8 1.3 - 8.1 [place] Neutrophil 10e9/L Absolute 3.0 1.1 - 8.6 [place] Lymphocytes 10e9/L Absolute 0.8 0.0 - 1.1 [place] Monocytes 10e9/L Absolute 0.2 0.0 - 0.7 [place] Eosinophils 10e9/L Absolute 0.0 0.0 - 0.2 [place] Basophils 10e9/L Diff Method Automated [place] Method Specimen Anatomical Collection Method Collection Time Receive d Time (Source) Location / / Volume Laterality 08/10/2009 12:25 08/10/2009 PM GLAZE MIXER 12:17 PM GLAZE MIXER Cordell Juarez MD LAB - BLOOD ORDERABLES Performing Organization Address City/State/ZIP Code Phon e Number [place] Comprehensive metabolic panel (08/10/2009 12:25 PM GLAZE MIXER) P athologist Signature Sodium 137 133 - 143 [place] mmol/L Potassium 4.0 3.4 - 5.3 [place] mmol/L Chloride 104 98 - 110 [place] mmol/L Carbon Dioxide 25 20 - 32 [place] mmol/L Glucose 99 60 - 99 [place] mg/dL Urea Nitrogen 18 5 - 24 [place] mg/dL Creatinine 0.48 0.39 - 0.73 [place] mg/dL Comment: New IDMS-traceable calibration beginning 10/16/07 GFR Estimate GFR not calculated, patient <16 mL/min/1.7m2 [place] years old. GFR Estimate If Black GFR not calculated, patient <16 mL/min/1.7m2 [place] years old. Calcium 9.3 8.7 - 10.8 mg/dL [place] AST 41 0 - 50 U/L [place] Protein Total 7.5 6.5 - 8.4 g/dL [place] Anion Gap 8 6 - 17 mmol/L [place] Albumin 5.0 3.9 - 5.1 g/dL [place] ALT 16 0 - 50 U/L [place] Alkaline Phosphatase 266 150 - 420 U/L [place] Bilirubin Total 0.5 0.2 - 1.3 mg/dL [place] Specimen Anatomical Collection Method Collection Time Receive d Time (Source) Location / / Volume Laterality 08/10/2009 12:25 08/10/2009 PM GLAZE MIXER 12:17 PM GLAZE MIXER Cordell Juarez MD LAB - BLOOD ORDERABLES Performing Organization Address City/[facility]/ZIP Code Phon e Number [place] IgG (08/10/2009 12:25 PM GLAZE MIXER) P athologist Signature IGG 1010 585 - 1510 [place] mg/dL Specimen Anatomical Collection Method Collection Time Receive d Time (Source) Location / / Volume Laterality 08/10/2009 12:25 08/10/2009 PM GLAZE MIXER 12:17 PM GLAZE MIXER Cordell Juarez MD LAB - BLOOD ORDERABLES Performing Organization Address [facility] Code Phon e Number MIS[place] N terminal pro BNP outpatient (08/10/2009 12:25 PM GLAZE MIXER) athologist Signature N-Terminal Pro 88 0 - 240 [place] Bnp pg/mL Specimen Anatomical Collection Method Collection Time Receive d Time (Source) Location / / Volume Laterality 08/10/2009 12:25 08/10/2009 PM GLAZE MIXER 12:17 PM GLAZE MIXER Cordell Juarez MD LAB - BLOOD ORDERABLES Performing Organization Address [facility] Code Phon e Number [place] TSH with free T4 reflex (08/10/2009 12:25 PM GLAZE MIXER) athologist Signature TSH 4.78 0.4 - 5.0 [place]IS[place] mU/L Specimen Anatomical Collection Method Collection Time Receive d Time (Source) Location / / Volume Laterality 08/10/2009 12:25 08/10/2009 PM GLAZE MIXER 12:17 PM GLAZE MIXER Cordell Juarez MD LAB - BLOOD ORDERABLES Performing Organization Address City/[facility]/ZIP Code Phon e Number MIS[place] documented in this encounter Visit Diagnoses Not on filedocumented in this encounter
--- OUTSIDE RECORDS SUMMARY | 2022-04-10 10:04 | XMS_ITS | Encounter Summary ---
:2000 Author Organization [place] Address [address] [place] [address] Care Team Providers Name Role Phone Unavailable Primary Care Provider Unavailable Reason for Visit Reason Comments Recheck Medication Forms Encounter Details Date Type Department Care Team Description 12/16/2008 Office Visit [facility], Ignacio Mares, VACC INE FOR DISEASE NEC (Primary Dx); [facility] [place] ATTN DEFICIT W HYPERACT [address] [place] [id number] [phone] Social History Tobacco Use Types Packs/Day Years Used Date Smoking Tobacco: Never Comments: none at home Alcohol Use Standard Drinks/Week Comments Not Asked 0 (1 standard drink = 0.6 oz pure alcoho l) Sex Assigned at Date Recorded Male 03/09/2019 1:21 PM CDT documented as of this encounter Last Filed Vital Signs Vital Sign Reading Time Taken Comments Blood Pressure 80/58 12/16/2008 3:26 PM CDT Pulse 100 12/16/2008 3:26 PM CDT Temperature - - Respiratory Rate - - Oxygen Saturation - - Inhaled Oxygen Concentration - - Weight 23.4 kg (51 lb 8 oz) 12/16/2008 3:26 PM CDT Height 122.6 cm (4' 0.25) 12/16/2008 3:26 PM CDT Body Mass Index 15.55 12/16/2008 3:26 PM CDT Body Mass Index Percentile 37.06 % 12/16/2008 3:26 PM CD T Growth Chart: [facility] (Boys, 2-20 Years) documented in this encounter Progress Notes RoseannetyrellIgnacio Alexandro - 12/20/2008 3:59 PM CDT SUBJECTIVE Jude Bills is a 8 year old male, accompanied by his mother for a medication check and ADHD followup. Also needs camp for completed CURRENT CONCERNS None with behavior. Continuing to do well. Switched from soccer to baseball due to size of children Past Medical History Diagnosis Date ??? 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 INTESTINAL FIXATION ANOM s/p [place] procedure 03/2006 ??? ESOPHAGEAL REFLUX ??? ANOMALIES OF SPLEEN Polysplenia CURRENT PRESCRIPTIONS Focalin xr10mg MEDICATION BENEFITS Controlled symptoms: Hyperactivity - motor restlessness, Attention span, Distractability, Impulse control, Frustration tolerance, Accepting limits and Peer relations Uncontrolled symptoms: None MEDICATION SIDE EFFECTS Has: none Denies: appetite suppression, insomnia, tics, palpitations, stomach ache, headache and emotional lability SCHOOL SCHOOL SERVICES/MODIFICATIONS has IEP FAMILY/HOME ENVIRONMENT: Stable and unchanged OBJECTIVE BP 80/58 Pulse 100 Ht 4' 0.25 (1.226 m) Wt 51 lb 8 oz (23.36 kg) EXAM: GENERAL: Alert and interactive with good eye contact, answering questions appropriately EYES: Normal extra-ocular movements. Fundoscopic exam normal with sharp optic disks. NECK: Normal thyroid. No significant adenopathy. LUNGS: Clear *HEART*: Murmur unchanged, RR ABDOMEN: Soft, nontender, no organomegaly. NEURO: Normal finger to nose without ataxia. No tremor. Normal tone and strength. Normal deep tendonreflexes and downgoing toes. Normal gait and balance. 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 Juarez also documented in this encounter Nursing Notes 12/16/2008 3:30 PM CDT >> [facility] Dec 16, 2008 3:26 PM Patient presents with: Recheck Medication Forms Initial BP 80/58 Ht 4' 0.25 (1.226 m) Wt 51 lb 8 oz (23.36 kg) Body mass index is 15.55 kg/(m^2).. BP completed using cuff size: pediatric documented in this encounter Plan of Treatment Upcoming Encounters Date Type Specialty Care Team Description 07/27/2022 Ancillary Procedure Cardiology Cordell Juarez MD [address] [facility] [place], [place] [address] (Arleen valdes) 07/27/2022 Office Visit Cardiology Cordell Juarez MD [address] [place], [place] [address] (Arleen valdes) documented as of this encounter Visit Diagnoses Diagnosis Need for prophylactic vaccination and in oculation against other specified disease - Primary ATTN DEFICIT W HYPERACT Attention deficit disorder with hyperact ivity documented in this encounter
--- OUTSIDE RECORDS SUMMARY | 2022-04-10 10:04 | XMS_ITS | Encounter Summary ---
:2000 Author Organization [place] Address [address] [place] [address] Care Team Providers Name Role Phone Unavailable Primary Care Provider Unavailable Encounter Details Date Type Department Care Team Description 07/28/2008 Historic Results INTERFACED REPORT Interface, Hetal modi [...] 07/27/2022 Ancillary Procedure Cardiology Cordell Juarez MD [address] [place] [phone] (Wo rk) 07/27/2022 Office Visit Cardiology Cordell Juarez MD [address] [place] [phone] (Wo rk) documented as of this encounter Procedures Procedure Name Priority Date/Time Associated Diagnosis Comme nts EKG 12 LEAD Routine 07/28/2008 11:56 AM Results for this JUNIOR SOFTWARE ENGINEER procedure are i n the results section . documented in this encounter Results EKG 12 LEAD (07/28/2008 11:56 AM JUNIOR SOFTWARE ENGINEER) Component Value Ref Range Test Analysis Performed Pathologis t Method Time At Signature Ventricular Rate 74 BPM RADIOLOGY RESULTS Atrial Rate 74 BPM RADIOLOGY RESULTS DE Interval 136 ms RADIOLOGY RESULTS QRS Duration 80 ms RADIOLOGY RESULTS QT 362 ms RADIOLOGY RESULTS QTc 401 ms RADIOLOGY RESULTS P [place] 20 degrees RADIOLOGY RESULTS R AXIS -79 degrees RADIOLOGY RESULTS T [place] 66 degrees RADIOLOGY RESULTS Interpretation * Pediatric ECG Analysis * RADIOLOGY ECG Sinus rhythm RESULTS Left axis deviation Right ventricular hypertrophy with strain pattern Unconfirmed report - interpretation of this ECG is compute r generated - see medical record for final interpretati on Specimen Anatomical Collection Method Collection Time Receive d Time (Source) Location / / Volume Laterality 07/28/2008 11:56 09/02/2008 AM JUNIOR SOFTWARE ENGINEER 10:06 AM CDT Transcripton Interface ECG ORDERABLES Performing Organization Address City/State/ZIP Code Phon e Number RADIOLOGY RESULTS documented in this encounter Visit Diagnoses Not on filedocumented in this encounter
--- OUTSIDE RECORDS SUMMARY | 2022-04-10 10:04 | XMS_ITS | Encounter Summary ---
:2000 Author Organization [place] Address [address] [place] [address] Care Team Providers Name Role Phone Unavailable Primary Care Provider Unavailable Encounter Details Date Type Department Care Team Description 08/10/2009 Office Visit-[facility] INTERFACE [facility] DEPT Provider, [facility] Nurs e Social History Tobacco Use Types Packs/Day Years Used Date Smoking Tobacco: Never Comments: none at home Alcohol Use Standard Drinks/Week Comments Not Asked 0 (1 standard drink = 0.6 oz pure alcoho l) Sex Assigned at Date Recorded Male 03/09/2019 1:21 PM CDT documented as of this encounter Progress Notes Provider, [facility] Nurse - 08/10/2009 11:00 AM CST Medical Staff Services Coordinator: Delicia Izaguirre Status: Final Encounter: 10 Aug 2009 Type: Rooming Note Informant Parent is informant unless otherwise noted. Reason For Visit [f/u for heart check ] Do you have any other appointments, tests or procedures within the [facility] system for this same day? No. Pain Eval Current history of pain associated with this visit is denied. Vital Signs Position for height measurement: standing Blood pressure taken with: electronic BP machine. Recorded by Delicia Izaguirre on 10 Aug 2009 10:52 AM BP:98/64, RUE, Sitting, HR: 106 b/min, Resp: 20 r/min, Height: 126.3 cm, Weight: 55.4 kg, BMI: 34.7 kg/m2, O2 Sat: 96 (%SpO2). Immunizations Immunizations are reported as current. [...] RPT. Signature Signed By: Delicia Izaguirre RN; 08/10/2009 10:57 AM BAR CATCHER. documented in this encounter Plan of Treatment Upcoming Encounters Date Type Specialty Care Team Description 07/27/2022 Ancillary Procedure Cardiology Cordell Juarez MD [address] [facility] [address] [place] [address] (Arleen valdes) 07/27/2022 Office Visit Cardiology Cordell Juarez MD [address] [facility] [address] [place] [address] (Arleen valdes) documented as of this encounter Visit Diagnoses Not on filedocumented in this encounter
--- OUTSIDE RECORDS SUMMARY | 2022-04-10 10:04 | XMS_ITS | Encounter Summary ---
:2000 Author Organization [place] Address [facility] [place] [address] Care Team Providers Name Role Phone Unavailable Primary Care Provider Unavailable Reason for Visit Reason Onset Date Comments Refill Request 07/18/2009 Focalin 10 mg. Encounter Details Date Type Department Care Team Description 07/18/2009 Refill [facility] Ignacio Solo MD Refill Request ([facility] [place] [address] 10 mg. ) [address] [place] [address] [place], [place] [phone] (Wo rk) [phone] [phone] Social History Tobacco Use Types Packs/Day Years Used Date Smoking Tobacco: Never Comments: none at home Alcohol Use Standard Drinks/Week Comments Not Asked 0 (1 standard drink = 0.6 oz pure alcoho l) Sex Assigned at Date Recorded Male 03/09/2019 1:21 PM CDT documented as of this encounter Miscellaneous Notes Telephone Encounter - hCeri Jurado - 07/18/2009 1:56 PM CST Rx palced at desk. Mom notified [employer] Telephone Encounter - Ignacio Solo - 07/18/2009 1:50 PM CST Rx done [employer] Telephone Encounter - Yessi Hernandez - 07/18/2009 1:40 PM CST Mom left note with motel front desk attendant asking for a refill. Last o.v. [id number]. [employer] documented in this encounter Plan of Treatment Upcoming Encounters Date Type Specialty Care Team Description 07/27/2022 Ancillary Procedure Cardiology Cordell Juarez MD [address] [place], [place] [phone] (Wo rk) 07/27/2022 Office Visit Cardiology Cordell Juarez MD [address] [place] [address] (Wo rk) documented as of this encounter Visit Diagnoses Diagnosis Attention deficit disorder with hyperact ivity(314.01) Attention deficit disorder with hyperact ivity documented in this encounter
--- OUTSIDE RECORDS SUMMARY | 2022-04-10 10:04 | XMS_ITS | Encounter Summary ---
:2000 Author Organization [place] Address [facility] [place] [address] Care Team Providers Name Role Phone Unavailable Primary Care Provider Unavailable Reason for Visit Reason Onset Date Comments Patient Request 03/10/2010 overbook request Encounter Details Date Type Department Care Team Description 03/10/2010 Telephone [facility] Ignacio Solo Pati ent Request Clinic [facility] (overbook request) [address] [place], [place] [phone] Social History Tobacco Use Types Packs/Day Years Used Date Smoking Tobacco: Never Comments: none at home Alcohol Use Standard Drinks/Week Comments Not Asked 0 (1 standard drink = 0.6 oz pure alcoho l) Sex Assigned at Date Recorded Male 03/09/2019 1:21 PM CDT documented as of this encounter Miscellaneous Notes Telephone Encounter - Yessi Hernandez - 03/10/2010 9:25 AM CDT appt set for this a.m. documented in this encounter Plan of Treatment Upcoming Encounters Date Type Specialty Care Team Description 07/27/2022 Ancillary Procedure Cardiology Cordell Juarez MD [address] [place], [place] [address] (Wo rk) 07/27/2022 Office Visit Cardiology Cordell Juarez MD [address] [place], [place] [address] (Wo rk) documented as of this encounter Visit Diagnoses Not on filedocumented in this encounter
--- OUTSIDE RECORDS SUMMARY | 2022-04-10 10:04 | XMS_ITS | Encounter Summary ---
:2000 Author Organization [place] Address [address] [place] [address] Care Team Providers Name Role Phone Unavailable Primary Care Provider Unavailable Encounter Details Date Type Department Care Team Description 04/12/2009 E-Visit [facility] Ignacio oSlo, HYPO PLASTIC LEFT HEART SYND; Clinic [facility] DUPREE Exposure to Influenza [address] [place], [place] [phone] Social History Tobacco Use Types Packs/Day Years [...] Ancillary Procedure Cardiology Cordell Juarez MD [address] [place] [phone] (Wo rk) 07/27/2022 Office Visit Cardiology Cordell Juarez MD [address] [place], [place] [phone] (Wo rk) documented as of this encounter Visit Diagnoses Diagnosis 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
--- OUTSIDE RECORDS SUMMARY | 2022-04-10 10:04 | XMS_ITS | Encounter Summary ---
:2000 Author Organization [place] Address [address] [place] [address] Care Team Providers Name Role Phone Unavailable Primary Care Provider Unavailable Encounter Details Date Type Department Care Team Description 03/13/2010 Orders Only [facility] Blood Stool Laboratory [address] [place] [address] Social History Tobacco Use [...] Ancillary Procedure Cardiology Cordell Juarez MD [address] [facility] [place], [place] [phone] (Wo rk) 07/27/2022 Office Visit Cardiology Cordell Juarez MD [address] [place], [place] [phone] (Arleen rk) documented as of this encounter Procedures Procedure Name Priority Date/Time Associated Comments Diagnosis HCL CULTURE, C DIFF Routine 03/13/2010 1:39 PM Blood Stool Re sults for this CDT procedure are i n the results section. HCL CLOSTRIDIUM Routine 03/13/2010 1:38 PM Blood Stool Result s for this DIFFICILE TOXIN B CDT procedure are in the results section. OVA AND PARASITES Routine 03/10/2010 1:39 PM Blood Stool Resu lts for this CDT procedure are i n the results section. CULTURE FOR ENTERIC Routine 03/10/2010 1:38 PM Blood Stool Re sults for this PATHOGENS CDT procedure are i n the results section. documented in this encounter Results C. DIFF. CULTURE (03/13/2010 1:39 PM CDT) PathCrowdlinker Method Time Signature Specimen Feces [facility] LAB C Difficile No Clostridium [facility] Culture difficile [facility] Specimen Anatomical Collection Method Collection Time Receive d Time (Source) Location / / Volume Laterality 03/13/2010 1:39 PM 0 1:44 CDT PM CDT Randy Hernandez MD LABORATORY Performing Organization Address City/[facility] Code Phon e Number [address] LAB [facility] CLOSTRIDIUM DIFFICILE TOXIN B (03/13/2010 1:38 PM CDT) Component Value Ref Test Analysis Performed At [employer] Range Method Time Signature Specimen Feces [facility] LAB C Diff Toxin B Negative: Clostridium diffic ile target DNA sequences NOT detected, presumed [facility] PCR negative for Clostridium di fficile toxin B or the number of bacteria present [facility] may be below the limit of detection for the test. [facility] FDA approved assay performed using [employer] GeneXpert real-t isaiah PCR. A negative result does not exclude actual disease due to Clostridium difficile and may be due to improper collection, handling and storage of the specimen or the number of organisms in the specimen is below the detection limit of the assay. Specimen Anatomical Collection Method Collection Time Receive d Time (Source) Location / / Volume Laterality 03/13/2010 1:38 PM 0 1:43 CDT PM CDT Randy Hernandez MD LABORATORY Performing Organization Address City/[facility]/ZIP Code Phon e Number [address] LAB [facility] OVA AND PARASITES (03/10/2010 1:39 PM CDT) Component Value Ref Test Analysis Performed At [facility] Range Method Time Signature Specimen Feces [facility] LAB Parasite Routine parasitology exam negative [facility] Routine Specimen received in preservative [facility] Micro Report FINAL [facility] Status 03/14/2010 [facility] Specimen Anatomical Collection Method Collection Time Receive d Time (Source) Location / / Volume Laterality 03/10/2010 1:39 PM 0 1:44 CDT PM CDT Randy Hernandez MD LABORATORY Performing Organization Address City/[facility]/ZIP Code Phon e Number [id number] [place] [address] LAB [facility] CULTURE FOR ENTERIC PATHOGENS (03/10/2010 1:38 PM CDT) Component Value Ref Test Analysis Performed At [facility] Method Time Signature Specimen Feces [facility] Shiga-Toxins Shiga toxin 1 NOT detected a nd Shiga toxin 2 NOT detected. ? Test results [place] 1&2 are to be used in conjunction with information available from the [facility] clinical evaluation and other diagnostic procedures. HOSPITAL LAB Culture Micro No Salmonella, [facility] Shigella, [facility] Campylobacter or HOSPITAL LAB E coli 0157 isolated. Micro Report FINAL 03/15/2010 [facility] LAB Specimen Anatomical Collection Method Collection Time Receive d Time (Source) Location / / Volume Laterality 03/10/2010 1:38 PM 0 1:43 CDT PM CDT Randy Hernandez MD LABORATORY Performing Organization Address City/[facility]/ZIP Code Phon e Number M [facility] [address] [place] [address] [facility] LAB [facility] documented in this encounter Visit Diagnoses Diagnosis Blood stool Blood in stool documented in this encounter
--- OUTSIDE RECORDS SUMMARY | 2022-04-10 10:04 | XMS_ITS | Encounter Summary ---
:2000 Author Organization [place] Address [address] [place] [address] Care Team Providers Name Role Phone Unavailable Primary Care Provider Unavailable Reason for Visit Reason Onset Date Comments Refill Request 02/13/2010 Encounter Details Date Type Department Care Team Description 02/13/2010 MyC Refill [facility] Ignacio Solo MD Refill Request [place] [address] [facility] [address] [place] [address] [place] [address] [phone] Social History Tobacco Use Types Packs/Day Years Used Date Smoking Tobacco: Never Comments: none at home Alcohol Use Standard Drinks/Week Comments Not Asked 0 (1 standard drink = 0.6 oz pure alcoho l) Sex Assigned at Date Recorded Male 03/09/2019 1:21 PM CDT documented as of this encounter Miscellaneous Notes Telephone Encounter - Sarah Jones - 02/13/2010 1:56 PM CDT 02/13/10 Called mom, she will pick pack worker form today before 8 pm. Left RX at front end developer designer. Telephone Encounter - Yessi Hernandez - 02/13/2010 9:08 AM CDT Message from [employer]: Jude Bills would like a refill of the following medications: FOCALIN XR 10 MG PO CP24 [Ignacio Gauravjuan Edil] Preferred pharmacy: Please let us know when the script is ready Comment: This message is being sent by Jaimie Bills on behalf of Jude Santos also sent a message regarding this medication. Please call [phone] Aldo Etienne (Mom) when the prescription is ready to pick pack worker. Thank you. documented in this encounter Plan of Treatment Upcoming Encounters Date Type Specialty Care Team Description 07/27/2022 Ancillary Procedure Cardiology Cordell Juarez MD [address] [place] [address] (Wo rk) 07/27/2022 Office Visit Cardiology Cordell Juarez MD [address] [facility] [address] [address] [place], [place] [address] (Wo rk) documented as of this encounter Visit Diagnoses Diagnosis Attention deficit disorder with hyperact ivity(314.01) Attention deficit disorder with hyperact ivity documented in this encounter
--- OUTSIDE RECORDS SUMMARY | 2022-04-10 10:04 | XMS_ITS | Encounter Summary ---
:2000 Author Organization [place] Address [facility] [place] [address] Care Team Providers Name Role Phone Unavailable Primary Care Provider Unavailable Encounter Details Date Type Department Care Team Description 07/28/2008 Office Visit-[facility] DEPT Cordell Juarez MD [address] [facility] [place], [place] [address] (Wo rk) Social History Tobacco Use Types Packs/Day Years Used Date Smoking Tobacco: Never Comments: none at home Alcohol Use Standard Drinks/Week Comments Not Asked 0 (1 standard drink = 0.6 oz pure alcoho l) Sex Assigned at Date Recorded Male 03/09/2019 1:21 PM CDT documented as of this encounter Progress Notes Cordell Juarez - 07/28/2008 12:30 PM CST Manager Wealth Management: Cordell Juarez Status: Final - Signature Encounter: 28 Jul 2008 Type: [facility] Division of Pediatric Cardiology Department of Pediatrics Pediatric [facility]ty Clinic - [address], [address] [place] [address] July 28, 2008 Ignacio Solo MD [facility] [address] [place] [address] RE: Jude Bills : 2000 MARTHA: 07/28/[address] Solo: I had the pleasure of seeing your patient, Jude Bills, in the Pediatric Cardiology Clinic at the [facility] on July 28, 2008. 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 He had significant desaturation with activity so underwent placement of an Amplatz occluder device in the Fontan fenestration in January of 2007. He has done very well since that time.He is here for a six-month follow-up visit. We did laboratory studies in November of 2007 which were normal with no evidence of protein-losing enteropathy. Jude was last seen in clinic six months ago. Since that time he has been doing very well. He has good energy and significantly less cyanosis than previously. He has been started on Focalin for ADHD anddoes have some decreased appetite with that medication. He has had no chest pain, irregular heartbeat or other concerning cardiovascular symptoms. He has no bleeding problems on his aspirin. Jude's medications are lisinopril 2.5 mg once daily, digoxin 0.125 mg once daily, and aspirin 81 mg once daily in addition to his Focalin. He did have a reaction to Captopril. On physical examination today, Jude's weight is 22.2 kg which is up 1.3 kg from his visit last November.His heart rate is 79 beats per minute and regular, his respiratory rate 28 and unlabored, blood pressure 93/59 in his right arm. Oxygen saturation at rest is 98%. In general he is a very well-appearingchild. He has no central or peripheral cyanosis, and his clubbing is beginning to resolve. His face is rounder with good color. He is thin with no evidence of abdominal distension. His lungs are clear to auscultation bilaterally. His cardiovascular examination reveals a well-healed midline sternotomy scar and chest tube scars. 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 He has a normal S1 and a single accentuated S2 with a very soft grade 1 systolic flow murmur at the left lower sternal border. Abdominal examination is benign without hepatosplenomegaly ormasses. Femoral pulses are normal, and extremities are warm and well-perfused. A 12-lead ECG obtained today reveals normal sinus rhythm at a rate of 74 beats per minute. There is left axis deviation and right ventricular hypertrophy by voltage criteria. Intervals are within normal limits. We did do an echocardiogram today which is unchanged from his prior echocardiograms with 1+AV valve regurgitation, good ventricular function, and good flow through the Fontan. There is no evidence of residual shunt at atrial level through the device. In summary, Jude is an twygb-ojyv-knb with a history of d-transposition, double outlet right ventricle, and hypoplastic left ventricle who is status post a fenestrated Fontan procedure at [facility]. His fenestration was closed a year and a half ago using an Amplatzer Septal Occluder device. Since that time he has had no symptoms and improved oxygen saturations. He is doing well at the present time and is stable on his current cardiovascular medicines. At this time we will make no changes. He should continue to receive dental cleanings every six months with antibiotic prophylaxis for bacterial endocarditis. I would like to see Jude back in clinic in six months, at which time we will repeat a CBC with differential, liver function tests including albumin, ATIII and immunoglobulin levels, and coagulation testing. If all is well at that time we will plan on seeing him on a yearly basis. I thank you for the opportunity to follow Jude with you, and I hope that you or his family will not hesitate to contact me if you have any questions or concerns about his cardiovascular status before his next visit in six months. Sincerely, Cordell Juarez M.D. Cafe Lead Pediatric Cardiology JL:lori cc: Parents of Jude Bills [address] [place] [address] Jostin Sal M.D. Pediatric Cardiology [facility] 94 Electronically signed by:Cordell Juarez M.D. Aug 13 2008 10:45AM TAX COMPLIANCE AGENT COMPLIANCE AGENT documented in this encounter Plan of Treatment Upcoming Encounters Date Type Specialty Care Team Description 07/27/2022 Ancillary Procedure Cardiology Cordell Juarez MD [address] [facility] [address] [place] [address] (Wo rk) 07/27/2022 Office Visit Cardiology Cordell Juarez MD [address] [facility] [address] [place] [address] (Wo rk) documented as of this encounter Visit Diagnoses Not on filedocumented in this encounter
--- OUTSIDE RECORDS SUMMARY | 2022-04-10 10:04 | XMS_ITS | Encounter Summary ---
:2000 Author Organization [place] Address [address] [place] [address] Care Team Providers Name Role Phone Unavailable Primary Care Provider Unavailable Reason for Visit Reason Comments Recheck Medication Encounter Details Date Type Department Care Team Description 09/10/2008 Office Visit [facility] Ignacio Solo Atte ntion Deficit Clinic Meir DUPREE Disorder with [address] Hyperactivity ([address]) [place] [id number] Social History Tobacco Use Types Packs/Day Years Used Date Smoking Tobacco: Never Comments: none at home Alcohol Use Standard Drinks/Week Comments Not Asked 0 (1 standard drink = 0.6 oz pure alcoho l) Sex Assigned at Date Recorded Male 03/09/2019 1:21 PM CDT documented as of this encounter Last Filed Vital Signs Vital Sign Reading Time Taken Comments Blood Pressure 96/58 09/10/2008 1:38 PM CDT Pulse - - Temperature 36.4 ??C (97.6 ??F) 09/10/2008 1:38 PM CDT Respiratory Rate - - Oxygen Saturation - - Inhaled Oxygen Concentration - - Weight 23.6 kg (52 lb) 09/10/2008 1:38 PM CDT Height 121.9 cm (4') 09/10/2008 1:38 PM CDT Body Mass Index 15.87 09/10/2008 1:38 PM CDT Body Mass Index Percentile 47.21 % 09/10/2008 1:38 PM CD T Growth Chart: [facility] (Boys, 2-20 Years) documented in this encounter Progress Notes Edil Ignacio K - 09/10/2008 4:27 PM CDT SUBJECTIVE Jude Bills is a 8 year old male, accompanied by his mother for a medication check and ADHD followup. CURRENT CONCERNS None, doing Past Medical History Diagnosis Date ??? 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 INTESTINAL FIXATION ANOM s/p [place] procedure 03/2006 ??? ESOPHAGEAL REFLUX ??? 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 Fundoscopic exam normal with sharp optic disks. NECK: Normal thyroid. No significant adenopathy. LUNGS: Clear *HEART*: RR, murmur and click unchanged ABDOMEN: Soft, nontender, no organomegaly. NEURO: Normal finger to nose without ataxia. No tremor. Normal tone and strength. Normal deep tendonreflexes and downgoing toes. Normal gait and balance. ASSESSMENT ADHD--combined type PLAN Medication: Focalin xr 10mg School modifications: As planned with IEP Follow-up: This summer documented in this encounter Nursing Notes 09/10/2008 1:30 PM CDT >> RENE Peña Sep 10, 2008 1:38 PM Elizabethmarina Marquis Bills presents for f/u meds. Initial BP 96/58 Temp (Src) 97.6 ??F (36.4 ??C) (Oral) Ht 4' (1.219 m) Wt 52 lb (23.587 kg) Body mass index is 15.87 kg/(m^2).. BP completed using cuff size: pediatric documented in this encounter Plan of Treatment Upcoming Encounters Date Type Specialty Care Team Description 07/27/2022 Ancillary Procedure Cardiology Cordell Juarez MD [address] [place], [place] [address] (Wo rk) 07/27/2022 Office Visit Cardiology Cordell Juarez MD [address] [facility] [place], [place] [id number] (Wo rk) documented as of this encounter Visit Diagnoses Diagnosis Attention deficit disorder with hyperact ivity(314.01) - Primary Attention deficit disorder with hyperact ivity documented in this encounter
--- OUTSIDE RECORDS SUMMARY | 2022-04-10 10:04 | XMS_ITS | Encounter Summary ---
:2000 Author Organization [place] Address [facility] [place] [address] Care Team Providers Name Role Phone Unavailable Primary Care Provider Unavailable Encounter Details Date Type Department Care Team Description 08/10/2009 Office Visit-[facility] DEPT Cordell Juarez MD [address] [facility] [place], [place] [address] (Wo rk) Social History Tobacco Use Types Packs/Day Years Used Date Smoking Tobacco: Never Comments: none at home Alcohol Use Standard Drinks/Week Comments Not Asked 0 (1 standard drink = 0.6 oz pure alcoho l) Sex Assigned at Date Recorded Male 03/09/2019 1:21 PM CDT documented as of this encounter Progress Notes Cordell Juarez - 08/10/2009 11:00 AM CST Thread Drawer: Cordell Juarez Status: Final - Signature Encounter: 10 Aug 2009 Type: [facility] Division of Pediatric Cardiology Department of Pediatrics Pediatric Specialty Clinic - [address], [address] [place] [address] August 10, 2009 Ignacio Solo MD [facility] [address] [place] [address] RE: Jude Bills : 2000 MARTHA: 08/10/[address] Solo: I had the pleasure of seeing your patient, Jude Bills, in the Pediatric Cardiology Clinic at the [facility] on August 10, 2009. 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 He underwent a central shunt for Fortino procedure and completion of a Fontan procedure at age [age] at [facility]. He had device closure of his Fontan fenestration in January 2007. I lastsaw him approximately six months ago for an evaluation for intermittent chest pain. His echocardiogram and exam were negative and the chest pain has since resolved. Jude returns today for a regular yearly checkup. His mother's only concern is intermittent loose stools that have not been bad according to Jude. He has had no facial edema, hand or foot swelling or abdominal enlargement. He is active normally although he does get tired sometimes during gym classes and stops to rest. He has had no color c hange, shortness of breath, decreased exercise tolerance, irregular heart beat or other concerning cardiovascular symptoms. Jude's medications are aspirin 81 mg tablets once daily, digoxin 0.125 mg tablet once daily, focalin XR 10 mg once daily and lisinopril one-half of a 10 mg tablet, or 5 mg once daily. On physical examination today, Jude's weight is 25.1 kg, which is at the 50th percentile. His heightis 126.3 cm, which is also at the 50th percentile. His heart rate is 106 beats per minute and regular. Respiratory rate 20 and unlabored. Blood pressure 98/64 in his right arm and 97/53 in his right leg. His oxygen saturation on room air is 95 to 96%. In general, he is quite well appearing and active.He has no facial swelling or central or peripheral cyanosis. His dentition is good. His lungs are clear to auscultation bilaterally. Cardiovascular examination reveals a quiet precordium with a normal S1 and a normal S2, which is single. He has a grade 2/6 systolic ejection murmur best heard at the left upper sternal border. He has no hepatosplenomegaly. Extremities are warm and well perfused with nocyanosis, clubbing or edema. A 12 lead ECG obtained today reveals an atrial rhythm at a rate of 81 beats per minute. Intervals are within normal limits. There is right ventricular hypertrophy noted. An echocardiogram performed today revealed low normal to mildly diminished function of his systemic right ventricle (Estimated EF approx 40%). He has mild tricuspid insufficiency with a Dp:Dt of 970 - 1818 (normal is 1000). There is no significant valve insufficiency. In summary, Jude is a [age] year old child who is relatively asymptomatic from a cardiovascular standpoint and growing and developing well. He has no new cardiovascular symptoms and appears to be tolerating his Fontan fenestration closure well. At this time I would like to draw some labs including a com prehensive metabolic panel, thyroid function studies, a BNP and a CBC and differential. If his laboratory values are normal, I would recommend discontinuing his digoxin at this time. I do not think it is providing significant benefit. We will continue his aspirin and lisinopril at his current doses. I would like to see Jude back in clinic in one year with a repeat echocardiogram and EKG at that visit. In the meantime, he should continue to use amoxicillin for antibiotic prophylaxis for bacterial endocarditis with regular dental cleanings and he should be not restricted from any activities but allowed to stop and rest if he becomes fatigued or short of breath. I thank you for the opportunity to follow Jude with you. I hope you or his parents will not hesitateto contact me if you have any concerns about his cardiovascular status before his next visit. Sincerely, Cordell Juarez M.D. Architect Manager Pediatric Cardiology Addendum: Jude's labs were normal as follows: AT III 82%, IgG 1010, BNP 88, ELectrolytes, creatinine(0.45) and LFT's were normal. Hgb was 13.6 with no suggestion of iron deficiency. Plt count was 268,000. SAMANTHA JL:11 cc: Parents of Jude Bills [address] [place] [address] Electronically signed by:Cordell Juarez M.D. Aug 28 2009 12:56PM ARCHITECTURE PROFESSOR Co-author ITECTURE PROFESSOR documented in this encounter Plan of Treatment Upcoming Encounters Date Type Specialty Care Team Description 07/27/2022 Ancillary Procedure Cardiology Cordell Juarez MD [address] [place] [address] (Wo rk) 07/27/2022 Office Visit Cardiology Cordell Juarez MD [address] [facility] [address] [address] [place] [address] (Wo rk) documented as of this encounter Visit Diagnoses Not on filedocumented in this encounter
--- OUTSIDE RECORDS SUMMARY | 2022-04-10 10:04 | XMS_ITS | Encounter Summary ---
:2000 Author Organization [place] Address [address] [place] [address] Care Team Providers Name Role Phone Unavailable Primary Care Provider Unavailable Reason for Visit Reason Onset Date Comments Refill Request 11/28/2009 Encounter Details Date Type Department Care Team Description 11/28/2009 [facility] MD Refill Request [place] [address] [facility] [address] [place] [address] [place] [address] [phone] Social History Tobacco Use Types Packs/Day Years Used Date Smoking Tobacco: Never Comments: none at home Alcohol Use Standard Drinks/Week Comments Not Asked 0 (1 standard drink = 0.6 oz pure alcoho l) Sex Assigned at Date Recorded Male 03/09/2019 1:21 PM CDT documented as of this encounter Miscellaneous Notes Telephone Encounter - Yessi Hernandez - 11/28/2009 11:53 AM CDT Message from Raimundo: Jude Bills would like a refill of the following medications: DIGOXIN [Patient Reported] LISINOPRIL 5 MG OR TABS [Patient Reported] FOCALIN XR 10 MG PO CP24 [IGNACIO LÓPEZ] Preferred pharmacy: [facility] Comment: This message is being sent by Jaimie Bills on behalf of Jude Cho Melania needs refills on his cardiac meds. I also need to picking table worker a script for his Focalin as he needs this as well. documented in this encounter Plan of Treatment Upcoming Encounters Date Type Specialty Care Team Description 07/27/2022 Ancillary Procedure Cardiology Cordell Juarez MD [address] [facility] [address] [place] [address] (Wo rk) 07/27/2022 Office Visit Cardiology Cordell Juarez MD [address] [facility] [address] [place] [address] (Wo rk) documented as of this encounter Visit Diagnoses Diagnosis Attention deficit disorder with hyperact ivity(314.01) - Primary Attention deficit disorder with hyperact ivity documented in this encounter
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
--- OUTSIDE RECORDS SUMMARY | 2022-04-10 10:04 | XMS_ITS | Encounter Summary ---
:2000 Author Organization [place] Address [address] [place] [address] Care Team Providers Name Role Phone Unavailable [...] Ancillary Procedure Cardiology Cordell Juarez MD [address] [place] [phone] (Wo rk) 07/27/2022 Office Visit Cardiology Cordell Juarez MD [address] [place] [phone] (Wo rk) documented as of this encounter Procedures Procedure Name Priority Date/Time Associated Diagnosis Comme nts EKG 12 LEAD Routine 08/10/2009 11:24 AM Results for this [employer]ER procedure are i n the results section . documented in this encounter Results EKG 12 LEAD (08/10/2009 11:24 AM FACE AND FILL PACKER) Component Value Ref Range Test Analysis Performed Pathologis t Method Time At Signature Ventricular Rate 81 BPM RADIOLOGY RESULTS Atrial Rate 81 BPM RADIOLOGY RESULTS FL Interval 120 ms RADIOLOGY RESULTS QRS Duration 82 ms RADIOLOGY RESULTS QT 348 ms RADIOLOGY RESULTS QTc 404 ms RADIOLOGY RESULTS P [place] 93 degrees RADIOLOGY RESULTS R AXIS -79 degrees RADIOLOGY RESULTS T [place] 68 degrees RADIOLOGY RESULTS Interpretation * Pediatric ECG Analysis * RADIOLOGY ECG Low atrial rhythm RESULTS Left axis deviation Right ventricular hypertrophy with strain pattern Specimen Anatomical Collection Method Collection Time Receive d Time (Source) Location / / Volume Laterality 08/10/2009 11:24 09/08/2009 4:18 AM F[employer]ILL PACKER PM CDT Transcripton Interface ECG ORDERABLES Performing Organization Address City/State/ZIP Code Phon e Number RADIOLOGY RESULTS documented in this encounter Visit Diagnoses Not on filedocumented in this encounter
--- OUTSIDE RECORDS SUMMARY | 2022-04-10 10:04 | XMS_ITS | Encounter Summary ---
:2000 Author Organization [place] Address [facility] [place] [address] Care Team Providers Name Role Phone Unavailable Primary Care Provider Unavailable Reason for Visit Reason Onset Date Comments Refill Request 03/02/2009 Focalin XR 10 mg. Encounter Details Date Type Department Care Team Description 03/02/2009 Refill [facility] Ignacio Solo MD Refill Request ([facility] [place] [address] XR 10 mg. ) [address] [address] [place], [place] [phone] (Wo rk) [address] [phone] Social History Tobacco Use Types Packs/Day Years Used Date Smoking Tobacco: Never Comments: none at home Alcohol Use Standard Drinks/Week Comments Not Asked 0 (1 standard drink = 0.6 oz pure alcoho l) Sex Assigned at Date Recorded Male 03/09/2019 1:21 PM CDT documented as of this encounter Miscellaneous Notes Telephone Encounter - Cheri Jurado - 03/03/2009 3:32 PM CDT Rx placed at desk. Left message for mom letting her know Telephone Encounter - Yessi Hernandez - 03/02/2009 3:00 PM CDT Mom requests refill, current dose is working well. Please call mom to cotton picker. Last o.v. 7.2.09. documented in this encounter Plan of Treatment Upcoming Encounters Date Type Specialty Care Team Description 07/27/2022 Ancillary Procedure [facility]iology [facility]arez [facility] [address] [facility] [address] [place] [address] (Wo rk) 07/27/2022 Office Visit Cardiology Cordell Juarez MD [address] [place] [address] (Wo rk) documented as of this encounter Visit Diagnoses Diagnosis Attention deficit disorder with hyperact ivity(314.01) Attention deficit disorder with hyperact ivity documented in this encounter
--- OUTSIDE RECORDS SUMMARY | 2022-04-10 10:04 | XMS_ITS | Encounter Summary ---
:2000 Author Organization [place] Address [address] [place] [address] Care Team Providers Name Role Phone Unavailable Primary Care Provider Unavailable Reason for Visit Reason Onset Date Comments Refill Request 03/20/2010 Encounter Details Date Type Department Care Team Description 03/20/[address] [facility] Ignacio Solo MD Refill Request [place] [address] [facility] [address] [place] [address] [place] [address] [phone] Social History Tobacco Use Types Packs/Day Years Used Date Smoking Tobacco: Never Comments: none at home Alcohol Use Standard Drinks/Week Comments Not Asked 0 (1 standard drink = 0.6 oz pure alcoho l) Sex Assigned at Date Recorded Male 03/09/2019 1:21 PM CDT documented as of this encounter Miscellaneous Notes Telephone Encounter - Christa Blackman - 03/21/2010 8:30 AM CDT Prescription placed up front for molded goods spot picker, left message for mom. Christa Blackman CMA Telephone Encounter - Yessi Hernandez - 03/20/2010 1:40 PM CDT Message from [email or web address]: Jude Bills would like a refill of the following medications: FOCALIN XR 10 MG PO CP24 [Ignacio Mares Roseannetyrell] Preferred pharmacy: Please call [phone] when ready to molded goods spot picker Comment: This message is being sent by Jaimie Bills on behalf of Jude Gomeslease Call [phone] when the prescription is ready for molded goods spot picker at the clinic.Thank you. documented in this encounter Plan of Treatment Upcoming Encounters Date Type Specialty Care Team Description 07/27/2022 Ancillary Procedure Cardiology Cordell Juarez MD [address] [facility] [address] [place] [address] (Wo rk) 07/27/2022 Office Visit Cardiology Cordell Juarez MD [address] [facility] [address] [address] [place] [address] (Wo rk) documented as of this encounter Visit Diagnoses Diagnosis Attention deficit disorder with hyperact ivity(314.01) - Primary Attention deficit disorder with hyperact ivity documented in this encounter
--- OUTSIDE RECORDS SUMMARY | 2022-04-10 10:04 | XMS_ITS | Encounter Summary ---
:2000 Author Organization [place] Address [facility] [place] [address] Care Team Providers Name Role Phone Unavailable Primary Care Provider Unavailable Reason for Visit Reason Comments Abdominal Pain Patient here has been compla ining of stomach pain for the last 4-5 days. Red and black noticed in stool on Saturday, has had some blood as well, was seen in [facility] for this. Looked like he was close to bowel obstruction, but not obstructed. Still hasn't passed much stool. Encounter Details Date Type Department Care Team Description 03/10/2010 Office Visit [facility] Randy Hernandez, Blo od Stool (Primary [facility] [place] [facility]) [address] [place] [address] [place] [phone] (Wo rk) Social History Tobacco Use Types [...] Pressure - - Pulse - - Temperature 36.8 ??C (98.2 ??F) 03/10/2010 10:01 AM CDT Respiratory Rate - - Oxygen Saturation - - Inhaled Oxygen Concentration - - Weight 25.6 kg (56 lb 8 oz) 03/10/2010 10:01 AM CDT Height 128.9 cm (4' 2.75) 03/10/2010 10:01 AM CDT Body Mass Index 15.42 03/10/2010 10:01 AM CDT Body Mass Index Percentile 23.37 % 03/10/2010 10:01 AM C DT Growth Chart: [facility] (Boys, 2-20 Years) documented in this encounter Progress Notes Randy Hernandez - 03/10/2010 10:21 AM CDT Mucous and blood in stool. Stools not formed. 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 No fevers. No one else with similar symptoms. 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 Had surgery dr guzman 2 - 3 years ago. Hetrotaxy. No medication other than heart meds. Digoxin, liniopril, focalin, baby aspirin. Not playing rough like usual. mag citrate fairly often. Physical Exam: 10 year old well developed, well nourished male in no apparent distress. Tympanic membranes with good landmarks bilaterally. Normal color. Conjunctiva without erythema or mattering. Nares without erythema or drainage. Throat without erythema or exudate. No tonsilar hypertrophy. No lymphadenopathy Lungs clear to auscultation. Abdomen soft, non-distended, non-tender, no hepatosplenomegally. Assessment: Abdominal pain. Discussed with ped surgery and cardiology. Feel it is most likely infectious such as c diff. Plan: Symptomatic treatment reviewed. Lab workup as ordered. Follow-up in clinic if no improvment 24-48 hours. documented in this encounter Nursing Notes 03/10/2010 9:45 AM CDT >> MARGUERITE MORRISON SatMar 10, 2010 10:02 AM Patient presents with: Abdominal Pain - Patient here has been complaining of stomach pain for the last 4-5 days. Red and black noticed in stool on Saturday, has had some blood as well, was seen in [facility] for this. Looked like he was close to bowel obstruction, but not obstructed. Still hasn't passed much stool. Initial Temp(Src) 98.2 ??F (36.8 ??C) (Oral) Ht 4' 2.75 (1.289 m) Wt 56 lb 8 oz (25.628 kg) Estimated Body mass index is 15.42 kg/(m^2) as calculated from the following: Height as of this encounter: 4' 2.75(1.289 m). Weight as of this encounter: 56 lb 8 oz(25.628 kg). BP completed using cuff size: NA (Not Taken). Marguerite Morrison CMA documented in this encounter Plan of Treatment Upcoming Encounters Date Type Specialty Care Team Description 07/27/2022 Ancillary Procedure Cardiology Cordell Juarez MD [address] [facility] [address] [place], [place] [phone] (Wo rk) 07/27/2022 Office Visit Cardiology Cordell Juarez MD [address] [place], [place] [phone] (Wo rk) documented as of this encounter Procedures Procedure Name Priority Date/Time Associated Comments Diagnosis HC X-RAY ABDOMEN AP Routine 03/10/2010 10:30 Blood stool Resu lts for this VIEW (KUB) AM CDT procedure are i n the results section. CL AFF CBC WITH Routine 03/10/2010 10:25 Blood Stool Results for this PLATELETS, DIFF AM CDT procedure ar e in the results section. HCL COMPREHENSIVE Routine 03/10/2010 10:25 Blood Stool Result s for this METABOLIC PANEL AM CDT procedure ar e in the results section. HCL SED RATE (ESR) Routine 03/10/2010 10:25 Blood Stool Resul ts for this AM CDT procedure are i n the results section. documented in this encounter Results X-RAY ABDOMEN 1 VW (03/10/2010 10:30 AM CDT) Anatomical Region Laterality Modality Other Specimen (Source) Anatomical Collection Method Collection Time Re ceived Time Location / / Volume Laterality 03/10/2010 10:30 AM CDT Impressions 03/13/2010 11:02 AM CDT ABDOMEN ONE VIEW ??Mar 10, 2010 10:30 AM HISTORY: Blood in stool. COMPARISON: None. FINDINGS: No evidence of free intraperit rose air. The bowel gas pattern is nonobstructive. IMPRESSION: Nonobstructive gas pattern. Randy Hernandez MD GENERAL IMAGING A.M.A. COMPREHENSIVE MET.PANEL (03/10/2010 10:25 AM CDT) athologist Signature Sodium 140 133 - 143 [place] mmol/L [facility] Potassium 4.1 3.4 - 5.3 [place] mmol/L [facility] Chloride 102 98 - 110 [place] mmol/L [facility] Carbon Dioxide 24 20 - 32 [place] mmol/L [facility] Anion Gap 14 6 - 17 [place] mmol/L [facility] Glucose 91 60 - 99 [place] mg/dL [facility] Urea Nitrogen 14 5 - 24 [place] mg/dL [facility] Creatinine 0.49 0.39 - [place] 0.73 mg/dL [facility] Comment: New IDMS-traceable calibration beginning 10/16/07 GFR Estimate GFR not calculated, mL/min/1.7m2 [facility] patient <16 years old. HOSPITA [facility] GFR Estimate If Black GFR not calculated, mL/min/1.7m2 [facility] patient <16 years old. [facility] Calcium 9.9 8.7 - 10.8 mg/dL [facility] Bilirubin Total 0.3 0.2 - 1.3 mg/dL [facility] Albumin 4.6 3.9 - 5.1 g/dL [facility] Protein Total 8.0 6.8 - 8.8 g/dL [facility] Alkaline Phosphatase 312 130 - 530 U/L [facility] ALT 24 0 - 50 U/L [facility] AST 40 0 - 50 U/L [facility] Specimen Anatomical Collection Method Collection Time Receive d Time (Source) Location / / Volume Laterality 03/10/2010 10:25 03/10/2010 AM CDT 10:30 AM CDT Randy Hernandez MD LABORATORY Performing Organization Address City/State/ZIP Code Phon e Number [facility] [address] [place], [place] [address] [facility] SED RATE, AUTO (03/10/2010 10:25 AM CDT) P athologist Signature Sed Rate 9 0 - 15 mm/h [facility] Specimen Anatomical Collection Method Collection Time Receive d Time (Source) Location / / Volume Laterality 03/10/2010 10:25 03/10/2010 AM CDT 10:30 AM CDT Randy Hernandez MD LABORATORY Performing Organization Address City/State/ZIP Code Phon e Number [facility] [address] [place], [place] [address] [address] [facility] CBC WITH PLATELETS, DIFF (03/10/2010 10:25 AM CDT) Patholo gist Method Time Signature WBC 4.9 4.0 - [place] 11.0 [facility] 10e9/L CLINIC LAB RBC Count 4.88 3.7 - 5.3 [place] 10e12/L [facility] Hemoglobin 13.4 11.7 - [facility] 15.7 g/dL [facility] Hematocrit 39.6 35.0 - [facility] 47.0 % [facility] MCV 81 77 - 100 [facility] MCH 27.5 26.5 - [facility] 33.0 pg [facility] MCHC 33.8 31.5 - [facility] 36.5 g/dL [facility] RDW 13.1 10.0 - [facility] 15.0 % [facility] Platelet Count 308 150 - 450 [place] 10e9/L [facility] Diff Method Automated [facility] % Neutrophils 53 32 - 64 % [facility] % Lymphocytes 32 26 - 50 % [facility] % Monocytes 12 0 - 12 % [facility] % Eosinophils 3 0 - 6 % [facility] % Basophils 0 0 - 2 % [facility] Absolute 2.6 1.3 - 7.0 [place] Neutrophil 10e9/L [facility] Absolute 1.6 1.0 - 5.8 [place] Lymphocytes 10e9/L [facility] Absolute 0.6 0.0 - 1.3 [place] Monocytes 10e9/L [facility] Absolute 0.1 0.0 - 0.7 [place] Eosinophils 10e9/L [facility] Absolute 0.0 0.0 - 0.2 [place] Basophils 10e9/L [facility] Specimen Anatomical Collection Method Collection Time Receive d Time (Source) Location / / Volume Laterality 03/10/2010 10:25 03/10/2010 AM CDT 10:30 AM CDT Randy Hernandez MD LABORATORY Performing Organization Address City/State/ZIP Code Phon e Number [facility] [address] [place], [place] [address] [address] [facility] documented in this encounter Visit Diagnoses Diagnosis Blood stool - Primary Blood in stool documented in this encounter
--- OUTSIDE RECORDS SUMMARY | 2022-04-10 10:04 | XMS_ITS | Encounter Summary ---
:2000 Author Organization [place] Address [address] [place] [address] Care Team Providers Name Role Phone Unavailable Primary Care Provider Unavailable Encounter Details Date Type Department Care Team Description 07/28/2008 Office Visit-[facility] INTERFACE [facility] DEPT Provider, [facility] [[email or web address] Nurs e Social History Tobacco Use Types Packs/Day Years Used Date Smoking Tobacco: Never Comments: none at home Alcohol Use Standard Drinks/Week Comments Not Asked 0 (1 standard drink = 0.6 oz pure alcoho l) Sex Assigned at Date Recorded Male 03/09/2019 1:21 PM CDT documented as of this encounter Progress Notes Provider, [facility] [[email or web address] Nurse - 07/28/2008 12:30 PM CST Impregnator: Delicia Izaguirre Status: Final Encounter: 28 Jul 2008 Type: Rooming Note Informant Parent is informant unless otherwise noted. Reason For Visit F/u for 6 month check with echo. Pain Eval Current history of pain associated with this visit is denied. Vital Signs Position for height measurement: standing Blood pressure taken with: electronic BP machine. Recorded by Delicia Izaguirre on 28 Jul 2008 11:50 AM BP:93/59, RUE, Sitting, HR: 82 b/min, Resp: 28 r/min, Height: 121.6 cm, Weight: 22.2 kg, BMI: 15 kg/m2, O2 Sat: 98 (%SpO2). Immunizations Immunizations are reported as current. Allergies Captopril TABS. Current Meds Digoxin-Tab 0.125 MG TABS;TAKE 1 TABLET DAILY.; RPT Lisinopril 10 MG Tablet;TAKE 1/2 TABLET DAILY.; RPT Focalin XR 10 MG Capsule Extended Release 24 Hour;TAKE 1 CAPSULE DAILY.; RPT Aspirin 81 MG Tablet Chewable;CHEW AND SWALLOW 1 TABLET DAILY.; RPT AAA-MED RECONCILE;per mother; RPT. Teaching Teaching not applicable. Signature Electronically Signed By: Delicia Izaguirre RN; 07/28/2008 11:54 AM NET DEVELOPER CONSULTANT. documented in this encounter Plan of Treatment Upcoming Encounters Date Type Specialty Care Team Description 07/27/2022 Ancillary Procedure Cardiology Cordell Juarez MD [address] [place] [address] (Wo rk) 07/27/2022 Office Visit Cardiology Cordell Juarez MD [address] [place] [address] (Wo rk) documented as of this encounter Visit Diagnoses Not on filedocumented in this encounter
--- OUTSIDE RECORDS SUMMARY | 2022-04-10 10:04 | XMS_ITS | Encounter Summary ---
:2000 Author Organization [place] Address [facility] [place] [address] Care Team Providers Name Role Phone Unavailable Primary Care Provider Unavailable Reason for Visit Reason Comments Edema L sided facial neck edema si nce yesterday, painful to touch Encounter Details Date Type Department Care Team Description 11/11/2008 Office Visit [facility] Y[facility]rell, Ignacio Karim, Clyde itis, Cervical (Primary Dx); [facility] Attention Deficit Disorder with Hyperact ivity [address] [place] [phone] Social History Tobacco Use Types Packs/Day Years [...] - Pulse - - Temperature 36.6 ??C (97.8 ??F) 11/11/2008 10:12 AM CDT Respiratory Rate - - Oxygen Saturation - - Inhaled Oxygen Concentration - - Weight 23.6 kg (52 lb) 11/11/2008 10:12 AM CDT Height - - Body Mass Index - - documented in this encounter Progress Notes Ignacio Solo - 11/14/2008 9:26 PM CDT Jude Bills is a 8 year old male here with parents due to L neck pain. Swelling and a little red underneath L ear. No ear pain. No fevers. Hurts when touched. Able to move neck. Eating/swallowing well. No meds given. Also needing refill on focalin. No side effect changes. Appetite ok. Dose working well Patient Active Problem List Diagnoses Date Noted ??? ATTN DEFICIT W HYPERACT [314.01] 09/07/2007 ??? 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 Eyes: FRANK, no discharge, no erythema ENT: R TM normal and good landmarks, L TM normal and good landmarks. Nose: no nasal discharge or congestion, Mouth: normal, mucous membranes moist Neck exam: mild tenderness, swelling and slight erythema inferior/post angle of jaw. Not mastoid. Lung exam: CTA, no wheezing, crackles or rtx. Heart exam: murmur unchanged, RR. Skin: no other rashes A/P Adenopathy/adenitis Given medical hx will tx due to erythema and tenderess Omnicef x 1 week Strep neg RTC in 2 days for f/u Focalin refill rx given. Working well documented in this encounter Nursing Notes 11/11/2008 10:00 AM CDT >> [facility] November 11, 2008 10:13 AM Jude Bills presents for L sided facial, neck edema. Initial Temp (Src) 97.8 ??F (36.6 ??C) (Oral) Wt 52 lb (23.587 kg) Estimated Body mass index is 15.87 kg/(m^2) as calculated from: Height of 4' 0 (1.219 m) as of 09/10/08 Weight of 52 lb (23.587 kg) as of this encounter. BP completed using cuff size: NA (Not Taken) documented in this encounter Plan of Treatment Upcoming Encounters Date Type Specialty Care Team Description 07/27/2022 Ancillary Procedure Cardiology Cordell Juarez MD [address] [place], [place] [phone] (Wo rk) 07/27/2022 Office Visit Cardiology Cordell Juarez MD [address] [place], [place] [phone] (Wo rk) documented as of this encounter Procedures Procedure Name Priority Date/Time Associated Diagnosis Comme nts HCL STREP GROUP A Routine 11/11/2008 10:41 Adenitis, Cervical Results for this ANTIGEN (RAPID) AM CDT procedure ar e in the results section. HCL BETA STREP Routine 11/11/2008 10:41 Adenitis, Cervi pau Results for this CONFIRM AM CDT Attention Deficit procedure are in Disorder with the results Hyperactivity section. documented in this encounter Results BETA STREP CONFIRM (11/11/2008 10:41 AM CDT) Component Value Ref Test Analysis Performed At [facility] Range Method Time Signature Specimen Throat [facility] Culture Micro No Beta [place] Streptococcus [facility] Report status FINAL 11/13/2008 [facility] Specimen Anatomical Collection Method Collection Time Receive d Time (Source) Location / / Volume Laterality 11/11/2008 10:41 11/11/2008 AM CDT 10:46 AM CDT Ignacio Solo MD LABORATORY Performing Organization Address City/State/ZIP Code Phon e Number [facility] [address] [place], [place] [address] [address] [facility] STREP GROUP A ANTIGEN (RAPID) (11/11/2008 10:41 AM CDT) Component Value Ref Test Analysis Performed At [facility] Range Method Time Signature Specimen Throat [place] Description [facility] Rapid Strep A NEGATIVE: No Group A strepto coccal antigen detected by immunoassay, await [place] Screen culture report. [facility] Report status FINAL 11/11/2008 [facility] Specimen Anatomical Collection Method Collection Time Receive d Time (Source) Location / / Volume Laterality 11/11/2008 10:41 11/11/2008 AM CDT 10:46 AM CDT Ignacio Solo MD LABORATORY Performing Organization Address City/State/ZIP Code Phon e Number [facility] [address], [place] [address] [address] [facility] documented in this encounter Visit Diagnoses Diagnosis Adenitis, cervical - Primary Lymphadenitis, unspecified, except mesen teric Attention deficit disorder with hyperact ivity(314.01) Attention deficit disorder with hyperact ivity documented in this encounter
--- OUTSIDE RECORDS SUMMARY | 2022-04-10 10:05 | XMS_ITS | Encounter Summary ---
:2000 Author Organization [place] Address [facility] [place] [address] Care Team Providers Name Role Phone Unavailable Primary Care Provider Unavailable Reason for Visit Reason Onset Date Comments Patient/info Update 03/15/2008 Encounter Details Date Type Department Care Team Description 03/15/2008 Telephone [facility] Ignacio Solo MD Patient/info Update Clinic [place] [address] [facility] [address] [place] [address] [place], [place] [phone] (Wo rk) [id number] [phone] Social History Tobacco Use Types Packs/Day Years Used Date Smoking Tobacco: Never Comments: none at home Alcohol Use Standard Drinks/Week Comments Not Asked 0 (1 standard drink = 0.6 oz pure alcoho l) Sex Assigned at Date Recorded Male 03/09/2019 1:21 PM CDT documented as of this encounter Miscellaneous Notes Telephone Encounter - Cheri Jurado - 03/15/2008 2:35 PM CDT 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 Telephone Encounter - Ignacio Solo - 03/15/2008 2:25 PM CDT Mom to oyster picker rx Telephone Encounter - Yessi Hernandez - 03/15/2008 10:51 AM CDT Mom calls with an update after speaking with phone banker. Capability Lead said Adderall would be fine.Clonidine would be fine as long as bp is monitored. Yessi Hernandez R.N. documented in this encounter Plan of Treatment Upcoming Encounters Date Type Specialty Care Team Description 07/27/2022 Ancillary Procedure Cardiology Cordell Juarez MD [address] [facility] [address] [place] [address] (Wo rk) 07/27/2022 Office Visit Cardiology Cordell Juarez MD [address] [place] [address] (Wo rk) documented as of this encounter Visit Diagnoses Not on filedocumented in this encounter
--- OUTSIDE RECORDS SUMMARY | 2022-04-10 10:05 | XMS_ITS | Encounter Summary ---
:2000 Author Organization [place] Address [address] [place] [address] Care Team Providers Name Role Phone Unavailable Primary Care Provider Unavailable Reason for Visit Reason Onset Date Comments Patient/info Update 04/15/2008 Encounter Details Date Type Department Care Team Description 04/15/2008 Telephone [facility] Ignacio Solo MD Patient/info Update Clinic [place] [address] [facility] [address] [place] [address] [place], [place] [phone] (Wo rk) [id number] [phone] Social History Tobacco Use Types Packs/Day Years Used Date Smoking Tobacco: Never Comments: none at home Alcohol Use Standard Drinks/Week Comments Not Asked 0 (1 standard drink = 0.6 oz pure alcoho l) Sex Assigned at Date Recorded Male 03/09/2019 1:21 PM CDT documented as of this encounter Miscellaneous Notes Telephone Encounter - Ignacio Solo - 04/15/2008 1:28 PM CDT Mom will come in at 2:30 today Telephone Encounter - Nu Zimmerman - 04/15/2008 9:47 AM CDT Mom calling with an fyi on pt's status. Pt has a petechiae rash on his arms and face. His face is also swollen and he is just not acting right. Mom would like pt to be seen by PCP (no appts available) or cardiology. She has an appt scheduled for tomorrow with cardiology, but cardiology is going tocall her back if pt can be seen today. Mom isn't sure if it may be related to his ADHD meds and should see primary. She noticed that when pt was swithed to adderall his attitude was not good. Mom has switched pt back to focalin. Nu Zimmerman RN documented in this encounter Plan of Treatment Upcoming Encounters Date Type Specialty Care Team Description 07/27/2022 Ancillary Procedure Cardiology Cordell Juarez MD [address] [place], [place] [phone] (Arleen valdes) 07/27/2022 Office Visit Cardiology Cordell Juarez MD [address] [place], [place] [phone] (Arleen valdes) documented as of this encounter Visit Diagnoses Not on filedocumented in this encounter
--- OUTSIDE RECORDS SUMMARY | 2022-04-10 10:05 | XMS_ITS | Encounter Summary ---
:2000 Author Organization [place] Address [facility] [place] [address] Care Team Providers Name Role Phone Unavailable Primary Care Provider Unavailable Reason for Visit Reason Onset Date Comments Refill Request 12/15/2007 Focalin XR 10 mg. ca ps Encounter Details Date Type Department Care Team Description 12/15/2007 Refill [facility] Ignacio Solo MD Refill Request ([facility] [place] [address] XR 10 mg. caps) [address] [place] [address] [place], [place] [phone] (Wo rk) [address] [phone] Social History Tobacco Use Types Packs/Day Years Used Date Smoking Tobacco: Never Comments: none at home Alcohol Use Standard Drinks/Week Comments Not Asked 0 (1 standard drink = 0.6 oz pure alcoho l) Sex Assigned at Date Recorded Male 03/09/2019 1:21 PM CDT documented as of this encounter Miscellaneous Notes Telephone Encounter - Cheri Jurado - 12/15/2007 4:43 PM CDT Rx at frontload driver. Mom notified Telephone Encounter - Ignacio Solo 12/15/2007 4:27 PM CDT Notify mom rx is ready Telephone Encounter - Yessi Hernandez - 12/15/2007 3:52 PM CDT Faxed request received from pharmacy. [employer] [phone]. Yessi Hernandez R.N. documented in this encounter Plan of Treatment Upcoming Encounters Date Type Specialty Care Team Description 07/27/2022 Ancillary Procedure Cardiology Cord[facility] MD [address] [facility] [address] [address] [place] [address] (Wo rk) 07/27/2022 Office Visit Cardiology Cordell Juarez MD [address] [place] [address] (Wo rk) documented as of this encounter Visit Diagnoses Diagnosis Attention deficit disorder with hyperact ivity(314.01) Attention deficit disorder with hyperact ivity documented in this encounter
--- OUTSIDE RECORDS SUMMARY | 2022-04-10 10:05 | XMS_ITS | Encounter Summary ---
:2000 Author Organization [place] Address [address] [place] [address] Care Team Providers Name Role Phone Unavailable Primary Care Provider Unavailable Reason for Visit Reason Onset Date Comments Refill Request 05/04/2008 Focalin XR Encounter Details Date Type Department Care Team Description 05/04/2008 Refill [facility] Ignacio Solo MD Refill Request ([facility] [place] [address] XR) [address] [place] [address] [place], [place] [phone] (Wo rk) [address] [phone] Social History Tobacco Use Types Packs/Day Years Used Date Smoking Tobacco: Never Comments: none at home Alcohol Use Standard Drinks/Week Comments Not Asked 0 (1 standard drink = 0.6 oz pure alcoho l) Sex Assigned at Date Recorded Male 03/09/2019 1:21 PM CDT documented as of this encounter Miscellaneous Notes Telephone Encounter - Cheri Jurado - 05/04/2008 10:42 AM CST Rx left at front services agent. Left message for mom letting her know this E DRIER Telephone Encounter - Ignacio Solo - 05/04/2008 10:35 AM CST Notify mom rx is ready please E DRIER Telephone Encounter - Nu Zimmerman - 05/04/2008 8:44 AM CST Mom calling for RF of Focalin XR. Last o/v 03/12/08. Current dose is working well. Plz call mom when ready for p/u at front services agent. Nu Zimmerman RN E DRIER documented in this encounter Plan of Treatment Upcoming Encounters Date Type Specialty Care Team Description 07/27/2022 Ancillary Procedure Cardiology Cordell Juarez MD [address] [facility] [address] [place] [address] (Wo rk) 07/27/2022 Office Visit Cardiology Cordell Jaurez MD [address] [facility] [address] [place], [place] [phone] (Wo rk) documented as of this encounter Visit Diagnoses Diagnosis Attention deficit disorder with hyperact ivity(314.01) Attention deficit disorder with hyperact ivity documented in this encounter
--- OUTSIDE RECORDS SUMMARY | 2022-04-10 10:05 | XMS_ITS | Encounter Summary ---
:2000 Author Organization [place] Address [facility] [place] [address] Care Team Providers Name Role Phone Unavailable Primary Care Provider Unavailable Encounter Details Date Type Department Care Team Description 07/28/2008 Results Only [facility] Rudy Juarez MD Hospital Results [address] [place], [place] [address] (Wo rk) Social History Tobacco Use Types [...] Ancillary Procedure Cardiology Cordell Juarez MD [address] [place] [phone] (Wo rk) 07/27/2022 Office Visit Cardiology Cordell Juarez MD [address] [place] [phone] (Wo rk) documented as of this encounter Procedures Procedure Name Priority Date/Time Associated Diagnosis Comme nts HC DOPPLER ECHO Routine 07/28/2008 12:32 PM Resul ts for this COLOR FLOW VELOCITY MACHINE CLOTHING REPLACER procedur e are in MAP the results section. documented in this encounter Results DOPPLER COLOR FLOW VELOCITY MAP (07/28/2008 12:32 PM MACHINE CLOTHING REPLACER) Anatomical Region Laterality Modality Other Specimen (Source) Anatomical Collection Method Collection Time Re ceived Time Location / / Volume Laterality 07/28/2008 12:32 PM MACHINE CLOTHING REPLACER Impressions 07/29/2008 4:20 PM MACHINE CLOTHING REPLACER PEDIATRIC ECHOCARDIOGRAM [facility] ? ?Echocardiogram Lab ? Age: ??1 ? W t: ? Ht: ? BSA: ? BP: ? Xcelera ? Dramatic Arts Historian: ??KBINDICATION: Fontan A cardiac ultrasound study based on an e xam which included: M-Mode ? 2-D ? Doppler ? Color FlowCONCLUSION: ??Double outlet ri ght ventricle with VSD status post Fortino and Fontan now status post D device closure of fenestrated Fontan. There is no shunt ac ross the Fontan. There is good single ventricular function. There is 1+ right sided AV valve insufficiency. TWO-D ECHO: Recordings are performed from parasterna l, apical, subcostal and suprasternal notch windows. ??Aortic, mi tral and tricuspid valve motions are normal. There is good single ventricular function. DOPPLER REPORT: Color flow and spectral Doppler are perf ormed. ??There is no atrioventricular valve regurgitation. Th ere is 1+ right sided atrioventricular valve regurgitation wit h a peak velocity of 3.8 m/sec, giving an estimated single ventri brian pressure of 57 mmHg plus right atrial pressure. Dp:Dt was 970. Th ere is laminar flow in the ascending aorta, transverse arch, distal transverse aorta (1.2 m/sec) with a normal abdominal aortic flow sign al of 1.3 m/sec. Laminar flow is seen through the SVC at 0.3-0.4 m/sec and through the Fontan at 0.3 m/sec. There is laminar flow through the RPA is 0.3 m/sec, through the LPA is 0.4 m/sec. There is n o residual shunt from the Fontan to the atrium. There is a large V SD with a left to right shunt. ?? Artemio Silva MD-Pager [phone] Gayathri Ayala MD-Pager [phone] Jorge Link MD-Pager [phone] or Cordell Juarez MD-Pager [phone] Jayson Bailey MD-Pager [phone] Vilma Rucker MD-Pager [phone] Cordell Juarez MD SPECIAL [facility] documented in this encounter Visit Diagnoses Not on filedocumented in this encounter
--- OUTSIDE RECORDS SUMMARY | 2022-04-10 10:05 | XMS_ITS | Encounter Summary ---
:2000 Author Organization [place] Address [address] [place] [address] Care Team Providers Name Role Phone Unavailable Primary Care Provider Unavailable Encounter Details Date Type Department Care Team Description 12/10/2007 Office Visit-[facility] Provider, [facility] Nurse [facility] [address] [place] [address] Social History Tobacco Use Types Packs/Day Years Used Date Smoking Tobacco: Never Comments: none at home Alcohol Use Standard Drinks/Week Comments Not Asked 0 (1 standard drink = 0.6 oz pure alcoho l) Sex Assigned at Date Recorded Male 03/09/2019 1:21 PM CDT documented as of this encounter Progress Notes Provider, [facility] Nurse - 12/10/2007 12:30 PM CDT Meat Cutting Teacher: Delicia Izaguirre Status: Final Encounter: 10 Dec 2007 Type: Peds Nurse Note Informant Parent is informant unless otherwise noted. Allergies Captopril TABS. Current Meds Reviewed current medication list with patient's mother. Vital Signs Position for height measurement: standing. Recorded by Delicia Izaguirre on 10 Dec 2007 11:49 AM BP:106/61, RUE, Sitting, HR: 97 b/min, Resp: 24 r/min, Height: 119 cm, Weight: 20.9 kg, BMI: 14.8 kg/m2, O2 Sat: 96 (%SpO2). Pain Assessment Current history of pain associated with this visit is denied. Immunizations Immunizations are reported as in progress with primary care provider. Teaching Teaching not applicable. Signature Electronically Signed By: Delicia Izaguirre RN; 12/10/2007 11:55 AM STRAP STITCHER. documented in this encounter Plan of Treatment Upcoming Encounters Date Type Specialty Care Team Description 07/27/2022 Ancillary Procedure Cardiology Cordell Juarez MD [address] [facility] [address] [place] [address] (Wo rk) 07/27/2022 Office Visit Cardiology Cordell Juarez MD [address] [facility] [address] [place] [address] (Wo rk) documented as of this encounter Visit Diagnoses Not on filedocumented in this encounter
--- OUTSIDE RECORDS SUMMARY | 2022-04-10 10:05 | XMS_ITS | Encounter Summary ---
:2000 Author Organization [place] Address [address] [place] [address] Care Team Providers Name Role Phone Unavailable Primary Care Provider Unavailable Reason for Visit Reason Comments RECHECK follow up adhd and meds Encounter Details Date Type Department Care Team Description 03/12/2008 Office Visit [facility] Ignacio Solo, ATTN DEFICIT W HYPERACT (Primary Dx); [facility] [address] [id number] [phone] Social History Tobacco Use Types Packs/Day Years Used Date Smoking Tobacco: Never Comments: none at home Alcohol Use Standard Drinks/Week Comments Not Asked 0 (1 standard drink = 0.6 oz pure alcoho l) Sex Assigned at Date Recorded Male 03/09/2019 1:21 PM CDT documented as of this encounter Last Filed Vital Signs Vital Sign Reading Time Taken Comments Blood Pressure 96/58 03/12/2008 9:30 AM CDT Pulse - - Temperature 37 ??C (98.6 ??F) 03/12/2008 9:30 AM CDT Respiratory Rate - - Oxygen Saturation - - Inhaled Oxygen Concentration - - Weight 21.9 kg (48 lb 5 oz) 03/12/2008 9:30 AM CDT Height 120.7 cm (3' 11.5) 03/12/2008 9:30 AM CDT Cvzdhu-nzr-Rzfplf Percentile 38.01 % 03/12/2008 9:30 AM CDT Growth Chart: [facility] (Boys, 2-20 Years) Body Mass Index 15.05 03/12/2008 9:30 AM CDT Body Mass Index Percentile 30.30 % 03/12/2008 9:30 AM CD T Growth Chart: [facility] (Boys, 2-20 Years) documented in this encounter Progress Notes Roseannetyrell Ignacio K - 03/12/2008 9:53 AM CDT Last 3 Encounter Wt Readings: Date Wt 03/12/2008 48 lb 5 oz (21.914 kg) (11%) 11/07/2007 48 lb 8 oz (21.999 kg) (18%) 09/22/2007 47 lb 8 oz (21.546 kg) (16%) Last 3 Encounter BP Readings: Date BP 03/12/2008 96/58 11/07/2007 100/68 09/22/2007 84/52 SUBJECTIVE: Jude is a 8 year old male who is here for follow - up of ADHD. Here with: mother Grade: 2nd current medication: Current outpatient prescriptions Medication Sig ??? ADDERALL XR# 5 MG OR CP24 1 tab po qam x 1 week, then 2 tabs po qam. ??? BABY ASPIRIN OR None Entered ??? FOCALIN XR 10 MG OR CP24 1 capsule sprinkled qam ??? LISINOPRIL 5 MG OR TABS 1/2 tab daily. ??? DIGOXIN 125mcg po qd Recent medication changes? NO Attitudes toward medication: alejandro with medication. Helps with attention. Current non-medication therapy: special assistance at school Patient Active Problem List Diagnoses Date Noted ??? ATTN DEFICIT W HYPERACT [314.01] 09/07/2007 ??? INTESTINAL FIXATION ANOM [751.4] s/p [place] procedure 03/2006 ??? 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 Tobacco Use: Never none at home ??? Alcohol Use: Not on file History Social History Narrative ??? No narrative on file ROS is done and is negative for general/constitutional, eye, ENT, Respiratory, cardiovascular, GI, , Skin, musculoskeletal, neuro except as noted elsewhere. OBJECTIVE: General: Alert, active, cooperative. Behavior observation in exam room:calm, polite, answers questions Eyes: Conjunctivae are clear. No discharge. Ears: External ears and canals are normal. TM's translucent with normal nora landmarks. No erythemaor purulence. Nose: No lesions, no drainage. Oropharynx: Moist membranes, no tonsillar erythema or exudate. Tonsils 2+. Neck: Supple, no significant adenopathy. No thyromegaly. Chest: Easy respirations. Lungs clear to auscultation. Good air movement bilaterally without rales, wheezes, or rhonchi. CV: 3/6 murmur. Normal pulses Abdomen: The abdomen is soft without tenderness, guarding, mass or organomegaly. Bowel sounds are normal. Neuro: Appropriate for age No noted tics or tremors. Skin: Normal color, temperature and turgor. No rashes or suspicious skin lesions noted. Lab: see Epic orders ASSESSMENT: ADHD Comorbidities: academic delays Target symptoms of medication: Hyperactivity - motor restlessness, Attention span, Distractability, Finishing tasks, Frustration tolerance and School failure:improved but will try adderall given other SE which have become more noticeable Hx of hypoplastic L heart syndrome Hx of htn PLAN: Start adderall XR 5mg, then increase by 5mg weekly OK to use adderall per Dr. Juarez Recheck in 2mo. Continue same target behaviors. Appointment time: 30 minutes, over 1/2 in located within [facility] Discussed sleeping difficulties and possible trial of clonidine. Mom reviewed with Dr Juarez who wouldapprove of use if needed with close monitor of BP documented in this encounter Nursing Notes 03/12/2008 9:30 AM CDT >> ADAN VAUGHAN Fri Mar 12, 2008 9:49 AM Patient presents with: RECHECK - follow up on adhd and meds initial BP 96/58 Temp (Src) 98.6 ??F (37 ??C) (Oral) Ht 3' 11.5 (1.207 m) Wt 48 lb 5 oz (21.914 kg) Body mass index is 15.05 kg/(m^2).. bp completed using cuff size pediatric ADAN VAUGHAN LPN documented in this encounter Plan of Treatment Upcoming Encounters Date Type Specialty Care Team Description 07/27/2022 Ancillary Procedure Cardiology Cordell Juarez MD [address] [place] [address] (Wo rk) 07/27/2022 Office Visit Cardiology Cordell Juarez MD [address] [place], [place] [address] (Wo rk) documented as of this encounter Visit Diagnoses Diagnosis ATTN DEFICIT W HYPERACT - Primary Attention deficit disorder with hyperact ivity Sleep disorder Sleep disturbance, unspecified documented in this encounter
--- OUTSIDE RECORDS SUMMARY | 2022-04-10 10:05 | XMS_ITS | Encounter Summary ---
:2000 Author Organization [place] Address [facility] [place] [address] Care Team Providers Name Role Phone Unavailable Primary Care Provider Unavailable Reason for Visit Reason Comments Derm Problem red, itchy rash on lower arm s and legs-since yesterday-worsening/eyes appear swollen per mom Encounter Details Date Type Department Care Team Description 04/15/2008 Office Visit [facility] Ignacio Solo, Phar yngitis (Primary Dx); Clinic Willis Wharf MD Hand Foot and Mouth Disease [address] [place] [address] [phone] Social History Tobacco Use Types Packs/Day Years [...] Pressure - - Pulse - - Temperature 36.7 ??C (98 ??F) 04/15/2008 3:00 PM CDT Respiratory Rate - - Oxygen Saturation - - Inhaled Oxygen Concentration - - Weight 21.8 kg (48 lb) 04/15/2008 3:00 PM CDT Height - - Body Mass Index - - documented in this encounter Progress Notes Mattie Osullivan - 04/15/2008 3:21 PM CDT Addended by: MATTIE OSULLIVAN on: 04/15/2008 3:21:52 PM Modules accepted: Orders Ignacio Solo - 04/15/2008 3:14 PM CDT Jude Bills is a 8 year old male here with his mom due to pharyngitis and rash on hands and feet. Low grade temps. Rash a little itchy on hands and hx of dry skin. Drinking OK. Mom also states pt didn't do well with adderall and switched back to focalin. Was very alejandro and angry, worse than adderall Past Medical History Diagnosis Date ??? 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 INTESTINAL FIXATION ANOM s/p [place] procedure 03/2006 ??? ESOPHAGEAL REFLUX ??? ANOMALIES OF SPLEEN Polysplenia ROS: RESP: no wheeze, cough, increased WOB, SOB GI: no vomiting or diarrhea Temp (Src) 98 ??F (36.7 ??C) (Oral) Wt 48 lb (21.773 kg) General appearance: in no apparent distress. Eyes: FRANK, no discharge, no erythema ENT: R TM normal and good landmarks, L TM normal and good landmarks. Nose: no nasal discharge or congestion, Mouth: few ulcers on post pharynx, mild erythema Neck exam: no adenopathy. Lung exam: CTA, no wheezing, crackles or rtx. Heart exam: S1, S2 normal, no murmur, rub or gallop, regular rate and rhythm. Abdomen: soft, NT, BS - nl. No masses or hepatosplenomegaly. Ext:Normal. Skin: mult well healed scars Dry skin, worse on hands and feet, eyrthematous macules on hands and feet including palms and sole A/P 8yo with likely Hand-foot mouth disease Strep screen done, results pending Supportive care and RTC prn documented in this encounter Nursing Notes 04/15/2008 3:00 PM CDT >> [facility] Apr 15, 2008 2:47 PM Jude Bills presents for a derm problem. Initial Temp (Src) 98 ??F (36.7 ??C) (Oral) Wt 48 lb (21.773 kg) Estimated Body mass index is 14.96 kg/(m^2) as calculated from: Height of 3' 11.5 (1.207 m) as of 03/12/08 Weight of 48 lb (21.773 kg) as of this encounter. BP completed using cuff size: NA (Not Taken) documented in this encounter Plan of Treatment Upcoming Encounters Date Type Specialty Care Team Description 07/27/2022 Ancillary Procedure Cardiology Cordell Juarez MD [address] [address] [place], [place] [phone] (Wo rk) 07/27/2022 Office Visit Cardiology Cordell Juarez MD [address] [place], [place] [phone] (Wo rk) documented as of this encounter Procedures Procedure Name Priority Date/Time Associated Diagnosis Comme nts HCL BETA STREP Routine 04/15/2008 3:17 PM Pharyngitis Results for this CONFIRM CDT procedure are i n the results section. HCL STREP GROUP A Routine 04/15/2008 3:17 PM Pharyngitis Resu lts for this AG (RAPID) CDT procedure are i n the results section. documented in this encounter Results BETA STREP CONFIRM (04/15/2008 3:17 PM CDT) Component Value Ref Test Analysis Performed At [facility] Range Method Time Signature Specimen Throat [facility] LAB Culture Micro No Beta CASSATT Streptococcus [place] isolated CLINIC LAB Report status FINAL 04/17/2008 [facility] Specimen Anatomical Collection Method Collection Time Receive d Time (Source) Location / / Volume Laterality 04/15/2008 3:17 PM 8 3:22 CDT PM CDT Ignacio Solo MD LABORATORY Performing Organization Address City/[facility]/ZIP Code Phon e Number [facility] [address] [place], [place] [address] [address] [facility] STREP GROUP A AG (RAPID) (04/15/2008 3:17 PM CDT) Component Value Ref Test Analysis Performed At [facility] Range Method Time Signature Specimen Throat [facility] Rapid Strep A NEGATIVE: No Group A strepto coccal antigen detected by immunoassay, await CASSATT Screen culture report. [facility] Report status FINAL 04/15/2008 [facility] Specimen Anatomical Collection Method Collection Time Receive d Time (Source) Location / / Volume Laterality 04/15/2008 3:17 PM 8 3:22 CDT PM CDT Ignacio Solo MD LABORATORY Performing Organization Address [facility]/ZIP Code Phon e Number [facility] [address] [place], [place] [address] [address] [facility] documented in this encounter Visit Diagnoses Diagnosis Pharyngitis - Primary Acute pharyngitis Hand foot and mouth disease Hand, foot, and mouth disease documented in this encounter
--- OUTSIDE RECORDS SUMMARY | 2022-04-10 10:05 | XMS_ITS | Encounter Summary ---
:2000 Author Organization [address] [place] [address] Care Team Providers Name Role Phone Unavailable Primary Care Provider Unavailable Reason for Visit Reason Onset Date Comments Refill Request 12/10/2007 DIGOXIN 125MCG Encounter Details Date Type Department Care Team Description 12/10/[address] [facility] Cordell Juarez MD Refill Request (DIGOXIN Clinic [address] 125MCG) [address] [place] [address] [place], [place] [phone] (Wo rk) [address] [phone] Social History Tobacco Use Types Packs/Day Years Used Date Smoking Tobacco: Never Comments: none at home Alcohol Use Standard Drinks/Week Comments Not Asked 0 (1 standard drink = 0.6 oz pure alcoho l) Sex Assigned at Date Recorded Male 03/09/2019 1:21 PM CDT documented as of this encounter Miscellaneous Notes Telephone Encounter - Wendy Wick - 12/10/2007 2:10 PM CDT Last fill 11/06/2007 Last Qty 30 Wendy Wick, Technical Project Coordinator [facility] documented in this encounter Plan of Treatment Upcoming Encounters Date Type Specialty Care Team Description 07/27/2022 Ancillary Procedure Cardiology Cord[facility]arez [facility] [address] [facility] [address] [place], [place] [phone] (Wo rk) 07/27/2022 Office Visit Cardiology Cordell Juarez MD [address] [place], [place] [phone] (Wo rk) documented as of this encounter Visit Diagnoses Not on filedocumented in this encounter
--- OUTSIDE RECORDS SUMMARY | 2022-04-10 10:05 | XMS_ITS | Encounter Summary ---
:2000 Author Organization [place] Address [facility] [place] [address] Care Team Providers Name Role Phone Unavailable Primary Care Provider Unavailable Encounter Details Date Type Department Care Team Description 12/10/2007 Results Only [facility] Rudy Juarez MD Hospital Results [address] [place], [place] [address] (Wo rk) Social History Tobacco Use Types [...] 07/27/2022 Ancillary Procedure Cardiology Cordell Juarez MD [address] [place] [phone] (Wo rk) 07/27/2022 Office Visit Cardiology Cordell Juarez MD [address] [place] [phone] (Wo rk) documented as of this encounter Procedures Procedure Name Priority Date/Time Associated Diagnosis Commnafisa nts ZZHC ECHO Routine 12/10/2007 12:20 PM Results for this XTHORACIC,NEHEMIAS CDT procedure are in ANOM,COMPLETE the results section. documented in this encounter Results ECHO XTHORACIC,NEHEMIAS ANOM,COMPLETE (12/10/2007 12:20 PM CDT) Component Value Ref Test Analysis Performed At [facility] Range Method Time Signature IMAGECAST PEDIATRIC ECHOCARDIOGRAM ?? RA DIOLOGY RESULT [facility] ??Echocardiogram Lab RESULTS ? Age: ??1 ? Wt: ? Ht: ? BSA: ? BP: ? Xcelera ? Leaf Tier: ??KB INDICATION: ?? A cardiac ultrasound study based on an exam which included: M-Mode ?2-D ?Doppler ? Color Flow CONCLUSION: ?? Status post Fontan. Good single ve ntricle systolic function. Fortino flow as well as the Fontan flow marquita ears to be laminar. The Amplatzer ASD device occludes the fenestrati on without any evidence of shunts. 1+ AV valve insufficiency. ? ? TWO-D ECHO: Recordings are performed from parasternal, apical, subcostal and suprasternal notch windows. ??Patient is status post a Fortino followed by Fontan procedure. Good single ventricle systolic function . The AV valve and the semilunar valve motions are normal. Fortino flow appears to be laminar. Branch pulmonary arteries by 2-dimensional vi ews were not well visualized. Amplatzer ASD device seen closing the fenestrated Fontan. Pericardial effusion. ?? DOPPLER REPORT: ?? Color flow and spectral Doppler are performed. ??1+ tricuspi d insufficiency. No aortic insufficiency. No aortic insufficie ncy. Abdominal aortic Doppler is normal. Arch is unobstructed. De scending aortic peak velocity is 1 m/sec. Fortino flow is laminar at 0. 3 m/sec. Fontan flow from the IVC is laminar. There is no evidence of fenestration seen. ?? Artemio Silva MD-Pager [phone] ?? Gayathri Ayala MD-Pager [phone] ?? Jorge Link MD-Pager [phone] or [phone] Cordell Juarez MD-Pager [phone] ?? Jayson Bailey MD-Pager [phone] Vilma Rucker MD-Pager [phone] Specimen (Source) Anatomical Collection Method Collection Time Re ceived Time Location / / Volume Laterality 12/10/2007 12:20 PM CDT Cordell Juarez MD PROCEDURES Performing Organization Address City/State/ZIP Code Phon e Number RADIOLOGY RESULTS documented in this encounter Visit Diagnoses Not on filedocumented in this encounter
--- OUTSIDE RECORDS SUMMARY | 2022-04-10 10:05 | XMS_ITS | Encounter Summary ---
:2000 Author Organization [place] Address [address] [place] [address] Care Team Providers Name Role Phone Unavailable Primary Care Provider Unavailable Reason for Visit Reason Comments Recheck Medication Encounter Details Date Type Department Care Team Description 11/07/[address] [facility] Ignacio Solo Atte ntion Deficit Clinic Meir DUPREE Disorder with [address] Hyperactivity (Primary [address] Dx) [place] [id number] Social History Tobacco Use Types Packs/Day Years Used Date Smoking Tobacco: Never Comments: none at home Alcohol Use Standard Drinks/Week Comments Not Asked 0 (1 standard drink = 0.6 oz pure alcoho l) Sex Assigned at Date Recorded Male 03/09/2019 1:21 PM CDT documented as of this encounter Last Filed Vital Signs Vital Sign Reading Time Taken Comments Blood Pressure 100/68 11/07/2007 10:30 AM CDT Pulse - - Temperature 36.4 ??C (97.5 ??F) 11/07/2007 10:30 AM CDT Respiratory Rate - - Oxygen Saturation - - Inhaled Oxygen Concentration - - Weight 22 kg (48 lb 8 oz) 11/07/2007 10:30 AM CDT Height 118.7 cm (3' 10.75) 11/07/2007 10:30 AM CDT Mxwqsp-rrj-Mmikvw Percentile 56.59 % 11/07/2007 10:30 AM CDT Growth Chart: [facility] (Boys, 2-20 Years) Body Mass Index 15.6 11/07/2007 10:30 AM CDT Body Mass Index Percentile 47.51 % 11/07/2007 10:30 AM C DT Growth Chart: [facility] (Boys, 2-20 Years) documented in this encounter Progress Notes Ignacio Solo - 11/07/2007 11:17 AM CDT SUBJECTIVE: Jude is a 7 year old male who is here for follow - up of ADHD. Here with: mom and dad current medication: Current outpatient prescriptions Medication Sig ??? FOCALIN XR 10 MG OR CP24 1 capsule sprinkled qam ??? LISINOPRIL 5 MG OR TABS 1/2 tab daily. ??? DIGOXIN 125mcg po qd Recent medication changes? NO Attitudes toward medication:helpful. Some misbehaving but not sure if just him or ADHD related Current non-medication therapy: assistance at school Patient Active Problem List Diagnoses Date Noted ??? ATTN DEFICIT W HYPERACT [314.01] 09/07/2007 ??? INTESTINAL FIXATION ANOM [751.4] s/p [place] procedure 03/2006 ??? 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 Tobacco Use: Never none at home ??? Alcohol Use: Not on file History Social History Narrative ??? No narrative on file ROS is done and is negative for general/constitutional, eye, ENT, Respiratory, cardiovascular, GI, , Skin, musculoskeletal, neuro except as noted elsewhere. OBJECTIVE: General: Alert, active, cooperative. Eyes: Conjunctivae are clear. No discharge. Ears: External ears and canals are normal. TM's translucent with normal nora landmarks. No erythemaor purulence. Nose: No lesions, no drainage. Oropharynx: Moist membranes, no tonsillar erythema or exudate. Tonsils 2+. Neck: Supple, no significant adenopathy. No thyromegaly. Chest: Easy respirations. Lungs clear to auscultation. Good air movement bilaterally without rales, wheezes, or rhonchi. CV: Regular rate and rhythm with normal S1 and split S2. No murmur appreciated. Abdomen: The abdomen is soft without tenderness, guarding, mass or organomegaly. Bowel sounds are normal. Neuro: Appropriate for age No noted tics or tremors. Skin: Normal color, temperature and turgor. No rashes or suspicious skin lesions noted. Lab: see Epic orders ASSESSMENT: ADHD Comorbidities: heart disease Target symptoms of medication: Hyperactivity - motor restlessness, Attention span, Distractability, Finishing tasks, Impulse control, Peer relations and School failure:improved PLAN: Current outpatient prescriptions Medication Sig ??? FOCALIN XR 10 MG OR CP24 1 capsule sprinkled qam ??? LISINOPRIL 5 MG OR TABS 1/2 tab daily. ??? DIGOXIN 125mcg po qd Recheck in 3 mo, sooner if we increase the dose to 15mg Appointment time: 15 minutes, over 1/2 in couseling documented in this encounter Nursing Notes 11/07/2007 10:30 AM CDT >> [facility] Fri November 07, 2007 10:38 AM Jude Bills presents for f/u meds. Initial BP 100/68 Temp (Src) 97.5 ??F (36.4 ??C) (Oral) Ht 3' 10.75 (1.187 m) Wt 48 lb 8 oz (21.999 kg) Body mass index is 15.60 kg/(m^2).. BP completed using cuff size: pediatric documented in this encounter Plan of Treatment Upcoming Encounters Date Type Specialty Care Team Description 07/27/2022 Ancillary Procedure Cardiology Larry, Cordell Barajas MD [address] [facility] [address] [place] [address] (Wo rk) 07/27/2022 Office Visit Cardiology LarryCordell MD [address] [place] [address] (Wo rk) documented as of this encounter Visit Diagnoses Diagnosis Attention deficit disorder with hyperact ivity(314.01) - Primary Attention deficit disorder with hyperact ivity documented in this encounter
--- OUTSIDE RECORDS SUMMARY | 2022-04-10 10:05 | XMS_ITS | Encounter Summary ---
:2000 Author Organization [place] Address [address] [place] [address] Care Team Providers Name Role Phone Unavailable Primary Care Provider Unavailable Encounter Details Date Type Department Care Team Description 12/10/2007 Historic Results INTERFACED REPORT Interface, Hetal modi [...] Ancillary Procedure Cardiology Cordell Juarez MD [address] [place] [phone] (Wo rk) 07/27/2022 Office Visit Cardiology Cordell Juarez MD [address] [place] [phone] (Wo rk) documented as of this encounter Procedures Procedure Name Priority Date/Time Associated Diagnosis Comme nts EKG 12 LEAD Routine 12/10/2007 12:25 PM Results for this CDT procedure are i n the results section . documented in this encounter Results EKG 12 LEAD (12/10/2007 12:25 PM CDT) Component Value Ref Range Test Analysis Performed Pathologis t Method Time At Signature Ventricular Rate 79 BPM RADIOLOGY RESULTS Atrial Rate 79 BPM RADIOLOGY RESULTS AL Interval 126 ms RADIOLOGY RESULTS QRS Duration 82 ms RADIOLOGY RESULTS QT 366 ms RADIOLOGY RESULTS QTc 419 ms RADIOLOGY RESULTS P [place] 83 degrees RADIOLOGY RESULTS R AXIS -78 degrees RADIOLOGY RESULTS T [place] 70 degrees RADIOLOGY RESULTS Interpretation * Pediatric ECG Analysis * RADIOLOGY ECG Sinus rhythm RESULTS Left axis deviation Right ventricular hypertrophy Specimen Anatomical Collection Method Collection Time Receive d Time (Source) Location / / Volume Laterality 12/10/2007 12:25 12/11/2007 1:14 PM CDT PM CDT Transcripton Interface ECG ORDERABLES Performing Organization Address City/State/ZIP Code Phon e Number RADIOLOGY RESULTS documented in this encounter Visit Diagnoses Not on filedocumented in this encounter
--- OUTSIDE RECORDS SUMMARY | 2022-04-10 10:05 | XMS_ITS | Encounter Summary ---
:2000 Author Organization [place] Address [address] [facility] [place] [address] Care Team Providers Name Role Phone Unavailable Primary Care Provider Unavailable Encounter Details Date Type Department Care Team Description 01/18/2008 Historic Results [place] [facility] Alden Juarez MD [facility]iology [address] [facility] [address] [place] [address] [place], [place] [address] (Wo rk) Social History Tobacco Use Types [...] 07/27/2022 Ancillary Procedure Cardiology Cordell Juarez MD [address] [place] [phone] (Wo rk) 07/27/2022 Office Visit Cardiology Cordell Juarez MD [facility] [address] [id number] (Wo rk) documented as of this encounter Procedures Procedure Name Priority Date/Time Associated Comments Diagnosis STOOL CULTURE Routine 01/18/2008 7:20 PM Results for this CDT procedure are i n the results section. OVA AND PARASITES Routine 01/18/2008 7:20 PM Resu lts for this (QUEST) CDT procedure are i n the results section. ALPHA 1 ANTITRYPSIN Routine 01/18/2008 7:20 PM Re sults for this STOOL CDT procedure are i n the results section. documented in this encounter Results Alpha 1 antitrypsin stool (01/18/2008 7:20 PM CDT) P athologist Signature Mwxwo-2-Blfuror 0.52 MISYS p Stool Comment: Reference range: 0.00 to 0.62 Unit: mg/g (Note) Performed by [employer], [address] [place] [id number] [email or web address], ??Kofi Stern MD - Lab. Director Specimen Anatomical Collection Method Collection Time Receive d Time (Source) Location / / Volume Laterality 01/18/2008 7:20 PM 8 8:51 CDT AM CDT Cordell Juarez MD LAB - STOOLS ORDERABLES Performing Organization Address City/[facility] Code Phon e Number MISYS Ova and parasites (01/18/2008 7:20 PM CDT) Component Value Ref Test Analysis Performed At [facility] gist Range Method Time Signature Specimen Feces MISYS Description Micro Report FINAL 01/20/2008 MISYS Status Parasite Routine MISYS Routine parasitology exam negative Comment: Specimen received in preservati ve Specimen Anatomical Collection Method Collection Time Receive d Time (Source) Location / / Volume Laterality 01/18/2008 7:20 PM 8 8:51 CDT AM CDT Cordell Juarez MD LAB - MICRO GENERAL ORDERABL ES Performing Organization Address City/[facility]/ZIP Code Phon e Number MISYS Stool culture SSCE (01/18/2008 7:20 PM CDT) Component Value Ref Test Analysis Performed At [facility] gist Range Method Time Signature Specimen Feces MISYS Description Culture Micro No Salmonella, MISYS Shigella, Campylobacter or E coli 0157 isolated. Micro Report FINAL 01/21/2008 MISYS Status Specimen Anatomical Collection Method Collection Time Receive d Time (Source) Location / / Volume Laterality 01/18/2008 7:20 PM 8 8:51 CDT AM CDT Cordell Juarez MD LAB - MICRO GENERAL ORDERABL ES Performing Organization Address City/State/ZIP Code Phon e Number MISYS documented in this encounter Visit Diagnoses Not on filedocumented in this encounter
--- OUTSIDE RECORDS SUMMARY | 2022-04-10 10:05 | XMS_ITS | Encounter Summary ---
:2000 Author Organization [place] Address [address] [facility] [place] [address] Care Team Providers Name Role Phone Unavailable Primary Care Provider Unavailable Encounter Details Date Type Department Care Team Description 12/10/2007 Historic Results [place] [facility] Alden Juarez MD Cardiology [address] [facility] [address] [place] [address] [place], [place] [address] (Wo rk) Social History Tobacco Use Types [...] 07/27/2022 Ancillary Procedure Cardiology Cordell Juarez MD [address] [place] [id number] (Wo rk) 07/27/2022 Office Visit Cardiology Cordell Juarez MD [facility] [address] [id number] (Wo rk) documented as of this encounter Procedures Procedure Name Priority Date/Time Associated Comments Diagnosis IGG Routine 12/10/2007 1:50 PM Results f or this CDT procedure are i n the results section. CBC WITH PLATELETS & Routine 12/10/2007 1:50 PM R esults for this DIFFERENTIAL CDT procedure are i n the results section. COMPREHENSIVE Routine 12/10/2007 1:50 PM Results for this METABOLIC PANEL CDT procedure ar e in the results section. ANTITHROMBIN III Routine 12/10/2007 1:50 PM Resul ts for this CDT procedure are i n the results section. documented in this encounter Results Antithrombin III (12/10/2007 1:50 PM CDT) athologist Signature Antithrombin III 94 80 - 120 % MISYS Chromogenic Specimen Anatomical Collection Method Collection Time Receive d Time (Source) Location / / Volume Laterality 12/10/2007 1:50 PM 8 1:37 CDT PM CDT Cordell Juarez MD LAB - BLOOD ORDERABLES Performing Organization Address City/State/ZIP Code Phon e Number MISYS (ABNORMAL) CBC with platelets differential (12/10/2007 1:50 PM CDT) [facility] gist Method Time Signature MCV 80 70 - 100 MISYS fl MCH 27.2 26.5 - MISYS 33.0 pg MCHC 33.9 31.5 - MISYS 36.5 g/dL RDW 12.9 10.0 - MISYS 15.0 % WBC 5.3 5.0 - MISYS 14.5 10e9/L RBC Count 4.81 3.7 - 5.3 MISYS 10e12/L Hemoglobin 13.1 10.5 - MISYS 14.0 g/dL Hematocrit 38.6 31.5 - MISYS 43.0 % % Neutrophils 56 (H) 32 - 54 % MISYS % Lymphocytes 31 27 - 57 % MISYS % Monocytes 10 0 - 10 % MISYS % Eosinophils 2 0 - 6 % MISYS % Basophils 1 0 - 1 % MISYS Platelet Count 244 150 - 450 MISYS 10e9/L Absolute 3.0 1.3 - 8.1 MISYS Neutrophil 10e9/L Absolute 1.6 1.1 - 8.6 MISYS Lymphocytes 10e9/L Absolute 0.6 0.0 - 1.1 MISYS Monocytes 10e9/L Absolute 0.1 0.0 - 0.7 MISYS Eosinophils 10e9/L Absolute 0.0 0.0 - 0.2 MISYS Basophils 10e9/L Diff Method Automated MISYS Method Specimen Anatomical Collection Method Collection Time Receive d Time (Source) Location / / Volume Laterality 12/10/2007 1:50 PM 8 1:37 CDT PM CDT Cordell Juarez MD LAB - BLOOD ORDERABLES Performing Organization Address City/State/ZIP Code Phon e Number MISYS Comprehensive metabolic panel (12/10/2007 1:50 PM CDT) P athologist Signature Sodium 138 133 - 143 MISYS mmol/L Potassium 3.8 3.4 - 5.3 MISYS mmol/L Chloride 104 98 - 110 MISYS mmol/L Carbon Dioxide 23 20 - 32 MISYS mmol/L Glucose 69 60 - 99 MISYS mg/dL Urea Nitrogen 17 5 - 24 MISYS mg/dL Creatinine 0.46 0.15 - 0.53 MISYS mg/dL Comment: New IDMS-traceable calibration beginning 10/16/07 GFR Estimate GFR not calculated, patient <16 mL/min/1.7m2 MISYS years old. GFR Estimate If Black GFR not calculated, patient <16 mL/min/1.7m2 MISYS years old. Calcium 8.7 8.7 - 10.8 mg/dL MISYS AST 42 0 - 50 U/L MISYS Protein Total 8.3 6.5 - 8.4 g/dL MISYS Comment: As of 07, reference range reflects plasma specimen type. Anion Gap 11 6 - 17 mmol/L MISYS Albumin 4.5 3.3 - 4.6 g/dL MISYS ALT 4 0 - 50 U/L MISYS Alkaline Phosphatase 284 150 - 420 U/L MISYS Bilirubin Total 0.6 0.2 - 1.3 mg/dL MISYS Specimen Anatomical Collection Method Collection Time Receive d Time (Source) Location / / Volume Laterality 12/10/2007 1:50 PM 8 1:37 CDT PM CDT Cordell Juarez MD LAB - BLOOD ORDERABLES Performing Organization Address City/[facility]/ZIP Code Phon e Number MISYS IgG (12/10/2007 1:50 PM CDT) athologist Signature IGG 1110 610 - 1230 MISYS mg/dL Specimen Anatomical Collection Method Collection Time Receive d Time (Source) Location / / Volume Laterality 12/10/2007 1:50 PM 8 1:37 CDT PM CDT Cordell Juarez MD LAB - BLOOD ORDERABLES Performing Organization Address [facility] Phon e Number MISYS documented in this encounter Visit Diagnoses Not on filedocumented in this encounter
--- OUTSIDE RECORDS SUMMARY | 2022-04-10 10:05 | XMS_ITS | Encounter Summary ---
:2000 Author Organization [place] Address [facility] [place] [address] Care Team Providers Name Role Phone Unavailable Primary Care Provider Unavailable Reason for Visit Reason Onset Date Comments Refill Request 02/26/2008 focalin Encounter Details Date Type Department Care Team Description 02/26/2008 Refill [facility] Ignacio Solo MD Refill Request Clinic [place] [address] (focalin) [address] [place] [address] [place], [place] [phone] (Wo rk) [address] [phone] Social History Tobacco Use Types Packs/Day Years Used Date Smoking Tobacco: Never Comments: none at home Alcohol Use Standard Drinks/Week Comments Not Asked 0 (1 standard drink = 0.6 oz pure alcoho l) Sex Assigned at Date Recorded Male 03/09/2019 1:21 PM CDT documented as of this encounter Miscellaneous Notes Telephone Encounter - Cheri Jurado - 03/01/2008 12:56 PM CDT Rx left at front office associate Telephone Encounter - Cheri Jurado - 02/26/2008 4:34 PM CDT Mom requesting refill. Will supervisor opening and picking once ready. Thank you documented in this encounter Plan of Treatment Upcoming Encounters Date Type Specialty Care Team Description 07/27/2022 Ancillary Procedure Cardiology Cordell Juarez MD [address] [facility] [address] [place], [place] [id number] (Wo rk) 07/27/2022 Office Visit Cardiology Cordell Juarez MD [address] [place], [place] [address] (Wo rk) documented as of this encounter Visit Diagnoses Diagnosis Attention deficit disorder with hyperact ivity(314.01) Attention deficit disorder with hyperact ivity documented in this encounter
--- OUTSIDE RECORDS SUMMARY | 2022-04-10 10:05 | XMS_ITS | Encounter Summary ---
:2000 Author Organization [place] Address [facility] [place] [address] Care Team Providers Name Role Phone Unavailable Primary Care Provider Unavailable Reason for Visit Reason Onset Date Comments Refill Request 06/14/2008 focalin Encounter Details Date Type Department Care Team Description 06/14/[address] [facility] Ignacio Solo MD Refill Request Clinic [place] [address] (focalin) [address] [place] [address] [place], [place] [phone] (Wo rk) [address] [phone] Social History Tobacco Use Types Packs/Day Years Used Date Smoking Tobacco: Never Comments: none at home Alcohol Use Standard Drinks/Week Comments Not Asked 0 (1 standard drink = 0.6 oz pure alcoho l) Sex Assigned at Date Recorded Male 03/09/2019 1:21 PM CDT documented as of this encounter Miscellaneous Notes Telephone Encounter - Cheri Jurado - 06/14/2008 1:35 PM CST Rxs left at front desk worker. Mom advised of need for f/u appt HER FINISHER Telephone Encounter - Ignacio Solo - 06/14/2008 1:28 PM CST Rx filled. Please advise to still come back in for wt check and f/u in late Jun or early Jul HER FINISHER Telephone Encounter - Nu Zimmerman - 06/14/2008 11:21 AM CST Mom calling for RF of Focalin. Last o/v 03/12/08. Current dose is working well. Mom would like to geta couple months worth of medication if possible. Plz call when ready for p/u at front desk worker. Nu Zimmerman RN HER FINISHER documented in this encounter Plan of Treatment Upcoming Encounters Date Type Specialty Care Team Description 07/27/2022 Ancillary Procedure Cardiology Cordell Juarez MD [address] [facility] [address] [place], [place] [address] (Wo rk) 07/27/2022 Office Visit Cardiology Cordell Juarez MD [address] [place] [address] (Wo rk) documented as of this encounter Visit Diagnoses Diagnosis Attention deficit disorder with hyperact ivity(314.01) - Primary Attention deficit disorder with hyperact ivity documented in this encounter
--- OUTSIDE RECORDS SUMMARY | 2022-04-10 10:05 | XMS_ITS | Encounter Summary ---
:2000 Author Organization [place] Address [address] [facility] [address] Care Team Providers Name Role Phone Unavailable Primary Care Provider Unavailable Encounter Details Date Type Department Care Team Description 12/10/2007 Office Visit-[facility] DEPT Cordell Juarez MD [address] [facility] [place], [place] [address] (Wo rk) Social History Tobacco Use Types Packs/Day Years Used Date Smoking Tobacco: Never Comments: none at home Alcohol Use Standard Drinks/Week Comments Not Asked 0 (1 standard drink = 0.6 oz pure alcoho l) Sex Assigned at Date Recorded Male 03/09/2019 1:21 PM CDT documented as of this encounter Progress Notes Cordell Juarez - 12/10/2007 12:30 PM CDT Laboratory Animal Facility Supervisor: Cordell Juarez Status: Final - Signature Encounter: 10 Dec 2007 Type: [facility] Division of Pediatric Cardiology Department of Pediatrics Pediatric Specialty Clinic - [address], [address] [place] [address] December 10, 2007 Ignacio Solo M.D. [facility] [address] [facility]. [address] [place] [address] RE: Jude Bills : 2000 MARTHA: 12/10/[address] Solo: I had the pleasure of seeing your patient, Jude Bills, in the Pediatric Cardiology Clinic at [facility] on December 10, 2007. 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 He underwent a central shunt Fortino procedure and finally fenestrated Fontan procedure at [facility] in [place]. In January 2007, he underwent a device closer at his Fontan fenestration by one of my partners, Dr. Jostin Sal at the [facility]. He did well with that procedure and is here for a scheduled followup visit. Jude's mother's only concern is his recent loose stools, abdominal tenseness and decreased appetite. Jude has not had any vomiting or feversassociated with this and no one else in the family has been ill. It has been a very stressful month for Jude's family as Jaimie's father is in hospice with lung cancer. In the interim since his last visit in March 2007, Jude has been started on Focalin stimulant for attention-deficit disorder. He is an active child who has exercise tolerance that is not quite up to that of his peers, but he looks quite pink and has been quite active since his fenestration was closed. He has had no shortness of breath or other cardiovascular symptoms. Jude's current medications are lisinopril 5 mg daily, Digoxin 0.125 mg daily, and Focalin 5-10 mg once daily. They discontinued his aspirin six months after device placement. On physical examination today Jude's weight is 20.9 kg, that represents relatively low weight increase since last March when his weight was 20.5 kg. His height is 119 cm, his heart rate is 97 beats per minute and regular, respiratory rate 24 and unlabored and blood pressure 106/61 in his right arm. O xygen saturation on room air is 96%. General: He is a very well-appearing young man. He has a great hungarian and lots of bumps and bruises. He does have very sensitive skin with mild eczema. His mucus membranes are moist and pink. His lungs are clear to auscultation bilaterally and his cardiovascular examination reveals a well-healed midline sternotomy scar with a normal S1 and normal S2 and no significant murmurs, rubs or gallops. Abdominal examination is benign with no fluid wave, no tenderness or fullness. He does have a well-healed scar from his malrotation surgery. Pulses are normal, extremitiesare warm and well perfused. A 12-lead EKG was obtained today reveals normal sinus rhythm at a rate of 79 beats per minute with normal intervals. There is left axis deviation and right ventricular prominence. I reviewed an echocardiogram that was performed on him today that reveals good ventricular function with mild AV valve insufficiency. He has good low-velocity antegrade flow in his Fontan, however, there is some small low-velocity flow in the inferior vena cava. There no residual shunt at the fenestration seen. Laboratory studies were obtained today and initial results include an albumin of 4.5, normal electrolytes, a hemoglobin of 13.1 gm/dl and a hematocrit of 38.6%. Stool studies including an [id number], ova and parasites, and anti- thrombin 3 and serum IgG are pending. Addendum: IgG and ATIII levels are normal. No stool sample was received. (12/29/[address] [facility]). In summary, Jude is a 7 year old with double outlet right ventricle, hypoplastic left ventricle, heterotaxy syndrome and history of malrotation, who is status post closure of the fenestration in his Fontan. He is fully saturated and doing well at the present time. He does have new onset diarrhea so wewill proceed with ruling out protein-losing enteropathy, although I am reassured by his normal albumin. At this point he can participate in physical activities as tolerated. I would continue to use antibiotic prophylaxis for bacterial endocarditis for him. In addition, given the low velocity flow in his Fontan, I would like him on some form of anticoagulation and we will restart him on aspirin 81 mg per day. His blood pressure is at the upper limits of normal for a child his age and size today and we will continue to follow this, However, it if remains elevated on his six-month recheck, we will plan on increasing his lisinopril. I did notify his mother that the albumin and CBC were normal. I will plan on seeing Jude back in clinic in six months. In the meantime, if you or his parents have any ques tions or concerns about his cardiovascular symptoms, please do not hesitate to contact me. I thank you for the opportunity to follow him with you. Sincerely, Cordell Juarez M.D. Care Trainer Pediatric Cardiology JL:cb }}[address] [place] [address] Jostin Sal M.D. Pediatric Cardiology }}[facility] 94 \* MERGEFORMAT cc: Parents of Jude Bills [address] [place] [address] Jostin Sal M.D. Pediatric Cardiology [facility] 94 Electronically signed by:Cordell Juarez M.D. Dec 29 2007 2:11PM DIP PAINTER documented in this encounter Plan of Treatment Upcoming Encounters Date Type Specialty Care Team Description 07/27/2022 Ancillary Procedure Cardiology Cordell Juarez MD [address] [facility] [address] [place], [place] [address] (Arleen valdes) 07/27/2022 Office Visit Cardiology Cordell Juarez MD [address] [place] [address] (Arleen valdes) documented as of this encounter Visit Diagnoses Not on filedocumented in this encounter
--- OUTSIDE RECORDS SUMMARY | 2022-04-10 10:05 | XMS_ITS | Encounter Summary ---
:2000 Author Organization [place] Address [address] [place] [address] Care Team Providers Name Role Phone KomalStephen Primary Care Provider [facility] Primary Care Provider [phone] Magnus Zayas DO Primary Care Provider [phone] Magnus Zayas DO Unavailable [phone] Celeste Scales MD Unavailable Magnus Zayas DO Unavailable [phone] Magda Winchester MD Primary Care Provider Encounter Details Date Type Department Care Team Description 01/22/2008 [facility] Ignacio Solo MD [place] [address] [facility] [address] [place] [address] [place] [address] [phone] Social History Tobacco Use Types Packs/Day Years [...] Ancillary Procedure Cardiology Cordell Juarez MD [address] [place] [address] (Wo rk) 07/27/2022 Office Visit Cardiology Cordell Juarez MD [address] [place] [address] (Wo rk) documented as of this encounter Visit Diagnoses Not on filedocumented in this encounter Additional Health Concerns Infection Onset Date Last Indicated Resolved Time Rule Out COVID-19 12/18/2019 12/18/2019 12/19/2019 3:4 2 PM CDT Rule Out COVID-19 12/21/2019 12/21/2019 12/22/2019 2:3 2 AM CDT documented as of this encounter Care Teams Survey Research Associate Relationship Specialty Start Date End Date Stephen Sauceda PCP - General Pediatrics 03/06/17 06/24/[address] [address] [facility] PCP - General 06/25/19 02/22/20 [address] [place] [address] Magnus Zayas, PCP - General Student in [facility] 02/23/20 09/17/[address] education/training program [address] [place] [address] Magda Winchester PCP - General Family Medicine 09/18/21 MD [place] Magnus Zayas, Assigned PCP 02/28/2004/06 DO [address] [facility] 284 [place], [place] [address] Celeste Scales MD Assigned PCP 11/10/20 11/19/[address] [address] Magnus Zayas, Assigned PCP 11/20/20 DO [address] [facility] [address] [place], [place] [address] documented as of this encounter
--- OUTSIDE RECORDS SUMMARY | 2022-04-10 10:06 | XMS_ITS | Encounter Summary ---
:2000 Author Organization [place] Address [facility] [place] [address] Care Team Providers Name Role Phone Unavailable Primary Care Provider Unavailable Encounter Details Date Type Department Care Team Description 02/06/2007 [facility] XXX RESIGNED XXX [address] [place] [address] [place], [place] [id number] [place] [address] [place], [place] [phone] (Wo rk) [address] [phone] Social History Tobacco Use Types Packs/Day Years [...] 07/27/2022 Ancillary Procedure Cardiology Cordell Juarez MD [address] [place] [address] [address] [place] [address] (Wo rk) 07/27/2022 Office Visit Cardiology Cordell Juarez MD [address] [facility] [address] [place] [address] (Wo rk) documented as of this encounter Procedures Procedure Name Priority Date/Time Associated Comments Diagnosis HEMOGLOBIN STAT 02/06/2007 8:00 AM Results f or this CDT procedure are i n the results section. CROSSMATCH RED CELLS STAT 02/06/2007 8:00 AM R esults for this CDT procedure are i n the results section. BASIC METABOLIC Routine 02/06/2007 8:00 AM Result s for this PANEL CDT procedure are i n the results section. documented in this encounter Results (ABNORMAL) Hemoglobin (02/06/2007 8:00 AM CDT) athologist Signature Hemoglobin 14.5 (H) 10.5 - 14.0 MISYS g/dL Specimen Anatomical Collection Method Collection Time Receive d Time (Source) Location / / Volume Laterality 02/06/2007 8:00 AM 7 8:04 CDT AM CDT Jostin Sal MD LAB - BLOOD ORDERABLES Performing Organization Address City/State/ZIP Code Phon e Number MISYS Basic metabolic panel (02/06/2007 8:00 AM CDT) [facility] gist Method Time Signature Sodium 142 133 - 143 MISYS mmol/L Potassium 4.2 3.4 - 5.3 MISYS mmol/L Chloride 109 98 - 110 MISYS mmol/L Carbon Dioxide 22 20 - 32 MISYS mmol/L Glucose 82 60 - 99 MISYS mg/dL Urea Nitrogen 17 5 - 24 MISYS mg/dL Creatinine 0.43 0.20 - MISYS 0.70 mg/dL GFR Estimate GFR not mL/min/1. MISYS calculated, 7m2 patient <16 years old. GFR Estimate If GFR not mL/min/1. MISYS Black calculated, 7m2 patient <16 years old. Calcium 9.5 8.7 - MISYS 10.8 mg/dL Anion Gap 11 6 - 17 MISYS mmol/L Specimen Anatomical Collection Method Collection Time Receive d Time (Source) Location / / Volume Laterality 02/06/2007 8:00 AM 7 3:04 CDT PM CDT Jostin Sal MD LAB - BLOOD ORDERABLES Performing Organization Address City/[facility]/ZIP Code Phon e Number MISYS Crossmatch red cells (02/06/2007 8:00 AM CDT) [facility] Method Time Signature ABO AB MISYS RH(D) Pos MISYS Antibody Neg MISYS Screen Blood Red Cells MISYS Component Type Units Ordered 1 MISYS Specimen 02/09/2007 MISYS Expires Unit Number [id number] MISYS Blood Red Blood MISYS Component Cells Type Leukocyte Reduced Status of REL FROM MISYS Unit ALLOC Specimen Anatomical Collection Method Collection Time Receive d Time (Source) Location / / Volume Laterality 02/06/2007 8:00 AM 7 8:04 CDT AM CDT Jostin Sal MD LAB - BLOOD BANK PRODUCT O RDER Performing Organization Address City/[facility] Code Phon e Number MISYS documented in this encounter Visit Diagnoses Not on filedocumented in this encounter
--- OUTSIDE RECORDS SUMMARY | 2022-04-10 10:06 | XMS_ITS | Encounter Summary ---
:2000 Author Organization [place] Address [facility] [place] [address] Care Team Providers Name Role Phone Unavailable Primary Care Provider Unavailable Encounter Details Date Type Department Care Team Description 02/23/2007 Emergency room Evie Troy MD [facility] [address] [place], [place] [address] (Wo rk) Social History Tobacco Use Types Packs/Day Years Used Date Smoking Tobacco: Never Comments: none at home Alcohol Use Standard Drinks/Week Comments Not Asked 0 (1 standard drink = 0.6 oz pure alcoho l) Sex Assigned at Date Recorded Male 03/09/2019 1:21 PM CDT documented as of this encounter Progress Notes Evie Troy - 02/28/2007 3:39 PM CDT FINAL CHIEF COMPLAINT: Left wrist and hand swelling. HISTORY OF PRESENT ILLNESS: The patient is a 7-year-old male who presents to the Emergency Department with his mother complaining of left wrist and hand swelling. She states that the child was reportedly stung by a bee on the left wrist on Saturday. The swelling has persisted. The redness has spread tothe back of his left hand. She denies any fevers. She states that he also fell off his bike on the day prior and may have hurt his left wrist though he did not seem injured after the fall. He has had no vomiting, no shortness of breath and no other complaints. The mother called the beveling and edging machine operator at [facility] and she was told to bring him in for blood tests and a blood culture and antibio tics. PAST MEDICAL HISTORY: He apparently had heart surgery in January of this year for a hypoplastic heart. He has had surgery for malrotation as well. MEDICATIONS: He is on digoxin, enalapril and baby aspirin. ALLERGIES: He has an intolerance to captopril. No known drug allergies. SOCIAL HISTORY: He is here with his mother. FAMILY HISTORY: Noncontributory. REVIEW OF SYSTEMS: As noted in the HPI. All other systems are negative. PHYSICAL EXAMINATION: GENERAL: The patient is alert and appropriate, running around the room, appears well. VITAL SIGNS: Temperature 96.8, pulse 78, respiratory rate 24 and oxygen saturation 98% on room air. HEAD: Normal. LUNGS: Clear to auscultation bilaterally. CARDIAC: Regular rate and rhythm. No murmurs, gallops or rubs. ABDOMEN: Normoactive bowel sounds, nontender, nondistended, soft and no masses. EXTREMITIES: The patient has some swelling and erythema to the left wrist and dorsal aspect of the left hand. There is no lymphangitis or lymphadenopathy. The patient has good distal pulses. Good range of motion. He does have some mild tenderness to palpation of the wrist on the left with good range of motion. Remainder of exam is normal. LABORATORY AND DIAGNOSTICS: CBC was obtained and white count was 5.7 with a normal differential, H&H and platelets were normal. BMP was within normal limits. Blood culture was obtained and was pending. X-rays of the left wrist were obtained; they were negative for fracture. EMERGENCY DEPARTMENT COURSE: An IV was started. The patient was given 500 mg of Ancef IV. He was doing well. He did not want anything for pain while in the Emergency Department. I discharged him home with a prescription for Keflex to take as directed. Tylenol as needed. Follow up with their doctor in2-3 days for reevaluation. Return if vomiting, fever or worse. DIAGNOSIS: Left hand cellulitis and beesting. Electronically signed on 02/28/2007 15:38 by EVIE TROY MD MT: [id number] Name: PIERRE BILLS MRN: [id number] Account: [id number] : 2000 Visit Date: 02/23/2007 Document: [id number] documented in this encounter Plan of Treatment Upcoming Encounters Date Type Specialty Care Team Description 07/27/2022 Ancillary Procedure Cardiology Cordell Juarez MD [address] [place] [address] (Wo rk) 07/27/2022 Office Visit Cardiology Cordell Juarez MD [address] [place] [address] (Wo rk) documented as of this encounter Visit Diagnoses Not on filedocumented in this encounter
--- OUTSIDE RECORDS SUMMARY | 2022-04-10 10:06 | XMS_ITS | Encounter Summary ---
:2000 Author Organization [place] Address [address] [place] [address] Care Team Providers Name Role Phone Unavailable Primary Care Provider Unavailable Encounter Details Date Type Department Care Team Description 03/26/2007 Historic Results INTERFACED REPORT Interface, Hetal modi [...] Ancillary Procedure Cardiology Cordell Juarez MD [address] [place] [phone] (Wo rk) 07/27/2022 Office Visit Cardiology Cordell Juarez MD [address] [place] [phone] (Wo rk) documented as of this encounter Procedures Procedure Name Priority Date/Time Associated Diagnosis Comme nts EKG 12 LEAD Routine 03/26/2007 3:38 PM Results f or this CDT procedure are i n the results section . documented in this encounter Results EKG 12 LEAD (03/26/2007 3:38 PM CDT) Component Value Ref Range Test Analysis Performed Pathologis t Method Time At Signature Ventricular Rate 70 BPM RADIOLOGY RESULTS Atrial Rate 70 BPM RADIOLOGY RESULTS NE Interval 144 ms RADIOLOGY RESULTS QRS Duration 86 ms RADIOLOGY RESULTS QT 378 ms RADIOLOGY RESULTS QTc 408 ms RADIOLOGY RESULTS P Mosby -5 degrees RADIOLOGY RESULTS R AXIS -79 degrees RADIOLOGY RESULTS T Mosby 61 degrees RADIOLOGY RESULTS Interpretation * Pediatric ECG Analysis * RADIOLOGY ECG Sinus rhythm RESULTS Left axis deviation Right ventricular hypertrophy with strain pattern Specimen Anatomical Collection Method Collection Time Receive d Time (Source) Location / / Volume Laterality 03/26/2007 3:38 PM 7 CDT 10:11 AM CDT Transcripton Interface ECG ORDERABLES Performing Organization Address City/State/ZIP Code Phon e Number RADIOLOGY RESULTS documented in this encounter Visit Diagnoses Not on filedocumented in this encounter
--- OUTSIDE RECORDS SUMMARY | 2022-04-10 10:06 | XMS_ITS | Encounter Summary ---
:2000 Author Organization [place] Address [facility] [place] [address] Care Team Providers Name Role Phone Unavailable Primary Care Provider Unavailable Reason for Visit Reason Comments RECHECK filled out forms from school and parents Encounter Details Date Type Department Care Team Description 08/25/2007 Office Visit [facility] Ignacio Solo, ATTN DEFICIT W HYPERACT (Primary Dx); Clinic [place] MD HYPOPLASTIC LEFT HEART SYND [address] [place] [place] [address] [phone] Social History Tobacco Use Types Packs/Day Years Used Date Smoking Tobacco: Never Comments: none at home Alcohol Use Standard Drinks/Week Comments Not Asked 0 (1 standard drink = 0.6 oz pure alcoho l) Sex Assigned at Date Recorded Male 03/09/2019 1:21 PM CDT documented as of this encounter Last Filed Vital Signs Vital Sign Reading Time Taken Comments Blood Pressure 100/68 08/25/2007 4:15 PM CDT Pulse - - Temperature 36.7 ??C (98 ??F) 08/25/2007 4:15 PM CDT Respiratory Rate - - Oxygen Saturation - - Inhaled Oxygen Concentration - - Weight 21.8 kg (48 lb) 08/25/2007 4:15 PM CDT Height 118.1 cm (3' 10.5) 08/25/2007 4:15 PM CDT Ihdtkr-ged-Nfbmyx Percentile 56.73 % 08/25/2007 4:15 PM CDT Growth Chart: [facility] (Boys, 2-20 Years) Body Mass Index 15.61 08/25/2007 4:15 PM CDT Body Mass Index Percentile 49.26 % 08/25/2007 4:15 PM CD T Growth Chart: [facility] (Boys, 2-20 Years) documented in this encounter Progress Notes Ignacio Solo - 09/07/2007 6:49 PM CDT SUBJECTIVE: Jude Bills is a 7 year old male here for evaluation of ADHD. He has been having increasing difficulty with maintaining attention over the past few year both at school and at home. Parents have always noted some easy distractibility, but seems to be worsening. Parents are concerned about Jude 's worsening performance at school. Jude 's inattention has been confirmed at parent teacher conferences. Patients school performance has been poor, there are known associated delays due to his medical hx. + hyperactivity symptoms. There is no history of violence toward other children , adults or animals. Denies history of frequent arguing with adults, lying, history of stealing, purposeful destruction of property, feelings of anger. The patient has a history of difficulty maintaining concentration for long periods of time such as with board games, directions, assignments. hx: hypoplastic left heart. Adopted. Chronic medical health problems. Likely hypoxia due to hxand surgeries. Developmental history: + developmental delays during and toddler years. Medical Hx: No hospitalizations or significant illness; Current outpatient prescriptions Medication Sig ??? FOCALIN XR 5 MG OR CP24 1 tab po qam x 1 week, then 2 tabs po qam ??? LISINOPRIL 5 MG OR TABS 1/2 tab daily. ??? DIGOXIN 125mcg po qd PMHx: hypoplastic left heart, cardiomyopathy Intestinal malabsorption, spleen and intestinal d/o. Dev delay OBJECTIVE: BP 100/68 Temp (Src) 98 (Oral) Ht 3' 10.5 (1.18m) Wt 48 lbs (21.8kg) EXAM: GENERAL APPEARANCE: healthy, alert and no distress EYES: Eyes grossly normal to inspection, fundi benign, FRANK HENT: ear canals and TM's normal and nose and mouth without ulcers or lesions NECK: no adenopathy, no asymmetry, masses, or scars and thyroid normal to palpation RESP: lungs clear to auscultation - no rales, rhonchi or wheezes CV:3/6 syst murmur. No rub or gallop. Well perfused ABDOMEN: soft, nontender, without hepatosplenomegaly or masses and bowel sounds normal MS: extremities normal- no gross deformities noted NEURO: Normal strength and tone, sensory exam grossly normal, mentation intact and speech normal PSYCH: mentation appears normal. and affect normal/bright; easily distractible. ASSESSMENT: ADHD. Significant cardiac hx. PLAN: NICHQ initial assessment forms given to mom for parents and teachers and returned. [place] with +scoring for ADD CONSULT PSYCHIATRY -for neuropsychology testing to evaluate for learning disability done in the past Reviewed case with Dr. Juarez, cardiology, who has cleared him to use stimulants for ADHD with his current cardiac status Focalin XR 5mg x 1 week, then 10mg qam. RTC in 1 mo for recheck Call or RTC if any concerns. If any associated cardiac sx advised to contact Dr. Juarez immediately orED. Reviewed SE potential with medications. Parents aware of risks and will keep a close eye on pt and f/u in 1 mo or sooner if needed. documented in this encounter Nursing Notes 08/25/2007 4:15 PM CDT >> RENETTA ORTIZ 08/25/2007 4:21 pm Jude Bills presents for follow up; filled out forms filled out from parents and teachers. Initial Temp (Src) 98 (Oral) Ht 3' 10.5 (1.18m) Wt 48 lbs (21.8kg) Body mass index is 15.61 kg/(m^2).. BP completed using cuff size: pediatric documented in this encounter Plan of Treatment Upcoming Encounters Date Type Specialty Care Team Description 07/27/2022 Ancillary Procedure Cardiology Cordell Juarez MD [address] [facility] [place] [phone] (Wo rk) 07/27/2022 Office Visit Cardiology Larry, Cordell skelton MD [address] [facility] [place], [place] [phone] (Wo rk) documented as of this encounter Visit Diagnoses Diagnosis Attention deficit disorder with hyperact ivity(314.01) - Primary Attention deficit disorder with hyperact ivity Hypoplastic left heart syndrome documented in this encounter
--- OUTSIDE RECORDS SUMMARY | 2022-04-10 10:06 | XMS_ITS | Encounter Summary ---
:2000 Author Organization [place] Address [address] [place] [address] Care Team Providers Name Role Phone Unavailable Primary Care Provider Unavailable Encounter Details Date Type Department Care Team Description 02/06/2007 Delivery Summary Jostin Winchester (Coding File Clerk) XXX RESIGNED XXX [address] [facility] [place] [address] (Wo rk) Social History Tobacco Use Types Packs/Day Years Used Date Smoking Tobacco: Never Comments: none at home Alcohol Use Standard Drinks/Week Comments Not Asked 0 (1 standard drink = 0.6 oz pure alcoho l) Sex Assigned at Date Recorded Male 03/09/2019 1:21 PM CDT documented as of this encounter Progress Notes Jostin Winchester H - 03/24/2007 1:09 PM CDT FINAL DATE OF DISCHARGE: 02/07/2007 ADMISSION DIAGNOSES: 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 5. Status post bidirectional bilateral Fortino and fenestrated Fontan. 6. Status post central shunt and removal of the central shunt. 7. History of increased cyanosis with exercise. REASON FOR HOSPITALIZATION: In brief, Pierre Bills is a 7-year-old with the above-noted cardiac history who presented to the cath laboratory on 02/06/2007 for left and right heart catheterization as well as possible occlusion of the fenestrated Fontan. In the cath laboratory after obtaining hemodynamic study it was determined safe to have a fenestrated Fontan occluded by device implantation. This wasdone without any complications. HOSPITAL COURSE: PROBLEM #1. Fluids, electrolytes and nutrition: The patient was initially maintained on IV fluids at maintenance. This was weaned as patient's p.o. intake improved. By the time of discharge he was eating ad noah without problems. PROBLEM #2. Cardiovascular: The patient was monitored for a period of 24 hours post catheterizationevaluation and intervention on telemetry. He did not have any major cardiac rhythm anomalies with the exception of slight sinus bradycardia at rest. No intervention was needed for this. The patient also had an EKG done, which showed sinus bradycardia and possible right ventricular hypertrophy. At the time of this dictation there is an echocardiogram that is pending. PROBLEM #3. Respiratory: The patient was extubated in the cath laboratory and was quickly weaned down to room air. At the time of discharge he has no respiratory issues. PROBLEM #4. Hematological/Infectious disease: The patient's access site was evaluated throughout this hospital course. He had a small hematoma on his right groin area. A pressure dressing was applied.The patient at time of discharge does not have any complaints nor any active bleeding at this site. DISPOSITION: Discharge to home. DISCHARGE MEDICATIONS: 1. Digoxin 125 mcg p.o. daily. 2. Enalapril 2.5 mg p.o. b.i.d. 3. Aspirin 81 mg p.o. every other day for 1 week and then patient is to take 81 mg p.o. daily. FOLLOWUP INSTRUCTIONS: 1. Patient is to follow up with his primary gambling box person, Dr. Cordell Juarez in about 6 weeks' time with a repeat echocardiogram. 2. Restrictions: We would like patient to not take any baths for the next 2 days and also not to do any lifting of objects greater or equal to 20 pounds. He should not have any elective dental procedure over the next 6 months. 3. Mom voiced understanding of assessment and plan. Electronically signed on 03/24/2007 13:08 by JOSTIN WINCHESTER MD As dictated by MARCIE GOETZ MD MT: [email or web address] Name: PIERRE BILLS Account: [id number] : 2000 Admit Date: [id number] Discharge Date: 02/07/2007 Document: [id number] cc: Cordell Solo MD documented in this encounter Plan of Treatment Upcoming Encounters Date Type Specialty Care Team Description 07/27/2022 Ancillary Procedure Cardiology Cordell Juarez MD [address] [facility] [address] [place], [place] [phone] (Wo rk) 07/27/2022 Office Visit Cardiology Cordell Juarez MD [address] [facility] [address] [place], [place] [phone] (Wo rk) documented as of this encounter Visit Diagnoses Not on filedocumented in this encounter
--- OUTSIDE RECORDS SUMMARY | 2022-04-10 10:06 | XMS_ITS | Encounter Summary ---
:2000 Author Organization [place] Address [facility] [place] [address] Care Team Providers Name Role Phone Unavailable Primary Care Provider Unavailable Reason for Visit Reason Comments Pharyngitis Sore throat for 10 days. Sym ptoms: hoarseness, hard to swollow, low grade temps. Has been a strep guerrier ier in past. Jose Luis Rivas CMA Encounter Details Date Type Department Care Team Description 07/23/2007 Office Visit [facility] MargaritaLino avila TREP SORE THROAT (Primary Dx); Clinic [facility] Bhupendra Mcginnis MD ACUTE PHARYNGITIS [facility], [address] [place], [place] [address] [address] [facility] [phone] [place], [place] [address] (Wo rk) Social History Tobacco Use Types [...] Pressure - - Pulse - - Temperature 36.4 ??C (97.6 ??F) 07/23/2007 8:45 AM CHILD DEVELOPMENT CONSULTANT Respiratory Rate - - Oxygen Saturation - - Inhaled Oxygen Concentration - - Weight 21.3 kg (46 lb 14.4 oz) 07/23/2007 8:45 AM CHILD DEVELOPMENT CONSULTANT Height 114.3 cm (3' 9) 07/23/2007 8:45 AM CHILD DEVELOPMENT CONSULTANT Lmzazd-sgv-Bpltoh Percentile 73.71 % 07/23/2007 8:45 AM CHILD DEVELOPMENT CONSULTANT Growth Chart: [facility] (Boys, 2-20 Years) Body Mass Index 16.28 07/23/2007 8:45 AM CHILD DEVELOPMENT CONSULTANT Body Mass Index Percentile 65.72 % 07/23/2007 8:45 AM CS T Growth Chart: [facility] (Boys, 2-20 Years) documented in this encounter Progress Notes Lino Avila - 07/23/2007 9:12 AM CST SUBJECTIVE: Jude Bills is a 7 year old male who is here today with: CC:Sore Throat, Cough and Coldand symptoms of no fever and no chills. Serious symptoms include: none applicable. Onset of symptoms was 1 week ago. Course of illness is same. colds exposures. Treatment measures tried include fluids, OTC meds and rest. Past Medical History Diagnosis Date ??? 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 INTESTINAL FIXATION ANOM s/p [place] procedure 03/2006 ??? ESOPHAGEAL REFLUX ??? ANOMALIES OF SPLEEN Polysplenia Current outpatient prescriptions Medication Sig ??? LISINOPRIL 5 MG OR TABS 1/2 tab daily. ??? DIGOXIN 125mcg po qd ??? ASPIRIN 81 MG OR CPEP None Entered OBJECTIVE: Temp (Src) 97.6 (Oral) Ht 3' 9 (1.14m) Wt 46 lbs 14.4 oz (21.3kg) GENERAL: healthy, alert, no distress and cooperative EYES:Lids and Conjunctival normal EAR: CANAL and Left TM is normal: no effusions, no erythema, and normal landmarks, CANAL and Right TM is normal: no effusions, no erythema, and normal landmarks. NOSE: clear rhinorrhea, mucosal erythema and mucosal edema OROPHARYNX:mild erythema and rapid strep done. NECK: supple and small, benign anterior cervical nodes bilaterally LUNGS:normal HEART :regular rate and rhythm and no murmurs, clicks, or gallops STREP GROUP A AG (RAPID): positive ASSESSMENT/PLAN: 034.0 STREP SORE THROAT (primary encounter diagnosis) Note: positive Plan: AMOXICILLIN 400 MG/5ML OR SUSR as directed 462 ACUTE PHARYNGITIS Plan: symptomatic and supportive care. Lino Avila MD [facility] D DEVELOPMENT CONSULTANT documented in this encounter Plan of Treatment Upcoming Encounters Date Type Specialty Care Team Description 07/27/2022 Ancillary Procedure Cardiology Cordell Juarez MD [address] [place], [place] [phone] (Wo rk) 07/27/2022 Office Visit Cardiology Cordell Juarez MD [address] [facility] [address] [place], [place] [phone] (Wo rk) documented as of this encounter Procedures Procedure Name Priority Date/Time Associated Diagnosis Comme nts HCL STREP GROUP A Routine 07/23/2007 9:34 AM Acute Pharyngitis Results for this AG (RAPID) CHILD DEVELOPMENT CONSULTANT procedure are i n the results section. documented in this encounter Results STREP GROUP A AG (RAPID) (07/23/2007 9:34 AM CHILD DEVELOPMENT CONSULTANT) Component Value Ref Test Analysis Performed At [facility] Range Method Time Signature Specimen Throat [facility] Rapid Strep A POSITIVE: Group OCALA Screen A Streptococcal [place] antigen detected [facility] by immunoassay. Report status FINAL 07/23/2007 [facility] Specimen Anatomical Collection Method Collection Time Receive d Time (Source) Location / / Volume Laterality 07/23/2007 9:34 AM 8 9:36 CHILD DEVELOPMENT CONSULTANT AM CHILD DEVELOPMENT CONSULTANT Lino Avila MD LABORATORY Performing Organization Address City/State/ZIP Code Phon e Number [facility] [id number] [place] [address] [facility] documented in this encounter Visit Diagnoses Diagnosis Streptococcal sore throat - Primary Acute pharyngitis documented in this encounter
--- OUTSIDE RECORDS SUMMARY | 2022-04-10 10:06 | XMS_ITS | Encounter Summary ---
:2000 Author Organization [place] Address [address] [place] [address] Care Team Providers Name Role Phone Unavailable Primary Care Provider Unavailable Encounter Details Date Type Department Care Team Description 02/06/2007 Results Only [facility] Unknown, [facility] Results Social History Tobacco Use Types Packs/Day Years [...] Ancillary Procedure Cardiology Cordell Juarez MD [address] [place] [phone] (Wo rk) 07/27/2022 Office Visit Cardiology Cordell Juarez MD [address] [place] [phone] (Wo rk) documented as of this encounter Procedures Procedure Name Priority Date/Time Associated Diagnosis Comme [facility] ZC ECHO Routine 02/06/2007 11:15 AM Results for this HEART,TRANSESOPH-AC CDT procedur e are in Q,INTERP the results section. documented in this encounter Results ECHO HEART,ORLIN-ACQ,INTERP (02/06/2007 11:15 AM CDT) Anatomical Region Laterality Modality Other Specimen (Source) Anatomical Collection Method Collection Time Re ceived Time Location / / Volume Laterality 02/06/2007 11:15 AM CDT Impressions 02/07/2007 9:14 PM CDT PEDIATRIC TRANSESOPHAGEAL ECHOCARDIOGRAM ?? [facility] E chocardiogram Lab ? CONCLUSION: ?? Single ventricle with goo d function. Fenestrated Fontan status post Amplatzer device deployment within the fenestration. Tiny residual shunt within the device at the end of the study. ?? 2-Dimensional Report ?? The probe was inserted by anesthesia to a depth of 30 cm. Long and short axis and four chamber views are ob tained. ??The patient is known to be single ventricle physiology status post fenestrated Fontan. There is good ventricular function. Aort ic, mitral and tricuspid valve motions are normal. ?? Doppler Report Color flow and spectral Doppler are util ized. There is trace tricuspid regurgitation. There is trace mitral regurgitation. There is a small fenestration with flow from t he Fontan into the atria. This measures 3 mm in diameter by color flow. The peak gradient across the fenestration is 1.7 mmHg with a mean gradient of 1 mmHg. During the study an Amplatzer septal occ luder device is deployed in the fenestration. After device deploymen t there is no acceleration of flow within the Fontan. There is a tiny residual shunt within the device. ?? Artemio Silva MD-Pager [phone] ?? Gayathri Ayala MD-Pager [phone] ?? Cordell Juarez MD-[phone] ?? Jayson Bailey MD-Pager [phone] Chip MD Nikolay-Pager [phone] or [phone] Vilma ?? MD Alka-Pager [phone] ?? Provider Unknown SPECIAL IMAGING STUDIES documented in this encounter Visit Diagnoses Not on filedocumented in this encounter
--- OUTSIDE RECORDS SUMMARY | 2022-04-10 10:06 | XMS_ITS | Encounter Summary ---
:2000 Author Organization [place] Address [facility] [place] [address] Care Team Providers Name Role Phone Unavailable Primary Care Provider Unavailable Encounter Details Date Type Department Care Team Description 02/06/2007 Historic Notes INTERFACED REPORT Interface, Transcript on, Social History Tobacco Use Types Packs/Day Years Used Date Smoking Tobacco: Never Comments: none at home Alcohol Use Standard Drinks/Week Comments Not Asked 0 (1 standard drink = 0.6 oz pure alcoho l) Sex Assigned at Date Recorded Male 03/09/2019 1:21 PM CDT documented as of this encounter Progress Notes Interface, Plant Protection Guard - 09/04/2010 10:58 AM CDT Focus: Arrival on 5A, low HR D: Pt. arrived on 5A at 1400. Pt. put onto telemetery. Family familiar to 5A. A: Pt. VS stable, but HR low between 45-66. Groin site D/I, and lower extremity pulses good. Pt. alert and oriented. I: Dr. Tolbert #[id number] paged about the low HR. Pt. continued to be monitored on telemetery. Order received to get 12 lead EKG. P: Cont. to monitor HR and VS. Keep pt. on BR until 1630. Call MD with further concerns r/t bradycardia. [Signature] Author:SANDEEP MILIAN) [Signed 06-Feb-2007 17:48] Interface, Plant Protection Guard - 09/04/2010 10:58 AM CDT Nursing Focus: Post cath D: Pt c/o tenderness at groin puncture site. Area appeared more swollen then when previously assessed. Pedal/post-tibial pulses intact. Per mom, pt has history of hematomas after heart caths. I: Paged recruiting intern on-call, Rachid Starks, to assess site. Suggested pressure dressing be placed, which was done. Pt also recieved PRN dose of tylenol. A: Groin distillation operator helper, but swelling unchanged. P: Watch site closely, offer hot packs for pain, as well as tylenol. [Signature] Author:Bonita Estrada (RN) [Signed 06-Feb-2007 22:30] documented in this encounter Plan of Treatment Upcoming Encounters Date Type Specialty Care Team Description 07/27/2022 Ancillary Procedure Cardiology Cordell Juarez MD [address] [place] [address] (Arleen valdes) 07/27/2022 Office Visit Cardiology Cordell Juarez MD [address] [place] [address] (Arleen valdes) documented as of this encounter Visit Diagnoses Not on filedocumented in this encounter
--- OUTSIDE RECORDS SUMMARY | 2022-04-10 10:06 | XMS_ITS | Encounter Summary ---
:2000 Author Organization [place] Address [facility] [place] [address] Care Team Providers Name Role Phone Unavailable Primary Care Provider Unavailable Encounter Details Date Type Department Care Team Description 02/12/2007 Historic Fur Buyer INTERFACED REPORT Interface, MD Jose Social History Tobacco Use Types Packs/Day Years [...] 07/27/2022 Ancillary Procedure Cardiology Cordell Juarez MD [address] [place] [address] [address] [facility] [place] [address] (Wo rk) 07/27/2022 Office Visit Cardiology Cordell Juarez MD [address] [place], [place] [address] (Wo rk) documented as of this encounter Visit Diagnoses Not on filedocumented in this encounter
--- OUTSIDE RECORDS SUMMARY | 2022-04-10 10:06 | XMS_ITS | Encounter Summary ---
:2000 Author Organization [place] Address [address] [place] [address] Care Team Providers Name Role Phone Unavailable Primary Care Provider Unavailable Reason for Visit Reason Onset Date Comments Patient Request 02/26/2007 Encounter Details Date Type Department Care Team Description 02/26/2007 Telephone [facility] Ignacio Solo MD Patient Request [place] [address] [address] [facility] [id number] [place] [phone] Social History Tobacco Use Types Packs/Day Years Used Date Smoking Tobacco: Never Comments: none at home Alcohol Use Standard Drinks/Week Comments Not Asked 0 (1 standard drink = 0.6 oz pure alcoho l) Sex Assigned at Date Recorded Male 03/09/2019 1:21 PM CDT documented as of this encounter Miscellaneous Notes Telephone Encounter - Randy Hernandez - 02/26/2007 3:29 PM CDT Turns out made up story at school to get attention about cat bite. No cat bite. No advise given. Telephone Encounter - Yessi Hernandez - 02/26/2007 2:31 PM CDT Pt was seen in [facility] ER on Saturday, 9.9.07. He developed cellulitis of L hand d/t bee sting. He received IV antibiotic and was sent home and is currently taking oral Keflex. Today he was bit by a cat on his L thumb and it did break the skin. Per mom, also had heart condition. Please advise regarding tx of cat bite. Yessi Hernandez R.N. documented in this encounter Plan of Treatment Upcoming Encounters Date Type Specialty Care Team Description 07/27/2022 Ancillary Procedure Cardiology Cordell Juarez MD [address] [facility] [address] [place] [address] (Wo rk) 07/27/2022 Office Visit Cardiology Cordell Juarez MD [address] [facility] [address] [place] [address] (Wo rk) documented as of this encounter Visit Diagnoses Not on filedocumented in this encounter
--- OUTSIDE RECORDS SUMMARY | 2022-04-10 10:06 | XMS_ITS | Encounter Summary ---
:2000 Author Organization [place] Address [facility] [place] [address] Care Team Providers Name Role Phone Unavailable Primary Care Provider Unavailable Encounter Details Date Type Department Care Team Description 02/06/2007 Historic Results INTERFACED REPORT Lucina Lovelace [facility] [id number] [place] [address] (Wo rk) Social History Tobacco Use Types [...] Procedure Cardiology Cordell Juarez MD [facility] [address] [address] (Wo rk) 07/27/2022 Office Visit Cardiology Cordell Juarez MD [address] [place], [place] [phone] (Wo rk) documented as of this encounter Procedures Procedure Name Priority Date/Time Associated Diagnosis Comme nts EKG 12 LEAD Routine 02/06/2007 3:01 PM Results f or this CDT procedure are i n the results section . documented in this encounter Results EKG 12 LEAD (02/06/2007 3:01 PM CDT) Component Value Ref Range Test Analysis Performed Pathologis t Method Time At Signature Ventricular Rate 65 BPM RADIOLOGY RESULTS Atrial Rate 65 BPM RADIOLOGY RESULTS ID Interval 150 ms RADIOLOGY RESULTS QRS Duration 82 ms RADIOLOGY RESULTS QT 400 ms RADIOLOGY RESULTS QTc 416 ms RADIOLOGY RESULTS P [place] 34 degrees RADIOLOGY RESULTS R AXIS -71 degrees RADIOLOGY RESULTS T [place] 71 degrees RADIOLOGY RESULTS Interpretation Poor data quality, interpretation may be adv ersely affected RADIOLOGY ECG * Pediatric ECG Analysis * RESULTS Sinus rhythm Left axis deviation Right ventricular hypertrophy T-wave inversion in Lateral leads Specimen Anatomical Collection Method Collection Time Receive d Time (Source) Location / / Volume Laterality 02/06/2007 3:01 PM 7 2:47 CDT PM CDT Lucina Osorio [place] ECG ORDERABLES Performing Organization Address City/State/ZIP Code Phon e Number RADIOLOGY RESULTS documented in this encounter Visit Diagnoses Not on filedocumented in this encounter
--- OUTSIDE RECORDS SUMMARY | 2022-04-10 10:06 | XMS_ITS | Encounter Summary ---
:2000 Author Organization [place] Address [address] [place] [address] Care Team Providers Name Role Phone Unavailable Primary Care Provider Unavailable Encounter Details Date Type Department Care Team Description 02/23/2007 [facility] Results [facility] [address] [place], [place] [address] (Wo rk) Social History [...] 07/27/2022 Ancillary Procedure Cardiology Cordell Juarez MD [address] [place] [id number] (Wo rk) 07/27/2022 Office Visit Cardiology Cordell Juarez MD [facility] [address] [address] [place], [place] [phone] (Wo rk) documented as of this encounter Procedures Procedure Name Priority Date/Time Associated Diagnosis Comme [facility] Z LT X-RAY WRIST Routine 02/23/2007 12:19 PM Re sults for this 3+ VW CDT procedure are i n the results section. documented in this encounter Results LT X-RAY WRIST 3+ VW (02/23/2007 12:19 PM CDT) Anatomical Region Laterality Modality Other Specimen (Source) Anatomical Collection Method Collection Time Re ceived Time Location / / Volume Laterality 02/23/2007 12:19 PM CDT Impressions 02/23/2007 1:28 PM CDT EXAM: ??WRIST G/E 3 VIEWS LEFT* ??Feb 23, 2007 12:19:00 PM HISTORY: ??Trauma. FINDINGS: Negative left wrist. Ralph Gooden MD GENERAL IMAGING documented in this encounter Visit Diagnoses Not on filedocumented in this encounter
--- OUTSIDE RECORDS SUMMARY | 2022-04-10 10:06 | XMS_ITS | Encounter Summary ---
:2000 Author Organization [place] Address [address] [place] [address] Care Team Providers Name Role Phone Unavailable Primary Care Provider Unavailable Reason for Visit Reason Comments Recheck Medication Encounter Details Date Type Department Care Team Description 09/22/2007 Office Visit [facility] Edil, Ignacio Mares, ATTN DEFICIT W [facility] Meir DUPREE HYPERACT (Primary Dx) [address] [place] [address] [phone] Social History Tobacco Use Types Packs/Day Years Used Date Smoking Tobacco: Never Comments: none at home Alcohol Use Standard Drinks/Week Comments Not Asked 0 (1 standard drink = 0.6 oz pure alcoho l) Sex Assigned at Date Recorded Male 03/09/2019 1:21 PM CDT documented as of this encounter Last Filed Vital Signs Vital Sign Reading Time Taken Comments Blood Pressure 84/52 09/22/2007 4:15 PM CDT Pulse - - Temperature 36.7 ??C (98 ??F) 09/22/2007 4:15 PM CDT Respiratory Rate - - Oxygen Saturation - - Inhaled Oxygen Concentration - - Weight 21.5 kg (47 lb 8 oz) 09/22/2007 4:15 PM CDT Height 117.5 cm (3' 10.25) 09/22/2007 4:15 PM CDT Gdbtzq-nxg-Nxtvwo Percentile 56.83 % 09/22/2007 4:15 PM CDT Growth Chart: [facility] (Boys, 2-20 Years) Body Mass Index 15.61 09/22/2007 4:15 PM CDT Body Mass Index Percentile 48.71 % 09/22/2007 4:15 PM CD T Growth Chart: [facility] (Boys, 2-20 Years) documented in this encounter Progress Notes Ignacio Solo - 09/22/2007 4:38 PM CDT Last 3 Wt Readings: Date: Wt: 09/22/2007 47 lbs 8.0 oz (21.546 kg) 08/25/2007 48 lbs (21.773 kg) 07/23/2007 46 lbs 14.4 oz (21.274 kg) SUBJECTIVE: Jude is a 7 year old male who is here for follow - up of ADHD. Here with: mom Current meds: focalin, lisinopril and digoxin Recent medication changes? Noticed improvement Attitudes toward medication: helpful at home and school Current non-medication therapy :Patient Active Problem List Diagnoses Date Noted ??? ATTN DEFICIT W HYPERACT [314.01] 09/07/2007 ??? INTESTINAL FIXATION ANOM [751.4] s/p [place] procedure 03/2006 ??? 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 Tobacco Use: Never none at home ??? Alcohol Use: Not on file History Social History Narrative ??? No narrative on file ROS is done and is negative for general/constitutional, eye, ENT, Respiratory, cardiovascular, GI, , Skin, musculoskeletal, neuro except as noted elsewhere. OBJECTIVE: General: Alert, active, cooperative. Behavior observation in exam room:calm and cooperative Eyes: Conjunctivae are clear. No discharge. Nose: No lesions, no drainage. Oropharynx: Moist [...] Lab: see Epic orders ASSESSMENT: ADHD Comorbidities: ? Delays/special needs at school Target symptoms of medication: Hyperactivity - motor restlessness, Attention span, Distractability, Finishing tasks, Frustration tolerance, Accepting limits and Peer relations:improved PLAN: Current outpatient prescriptions Medication Sig ??? FOCALIN XR 10 MG OR CP24 1 capsule sprinkled qam ??? FOCALIN XR 5 MG OR CP24 1 tab po qam x 1 week, then 2 tabs po qam ??? LISINOPRIL 5 MG OR TABS 1/2 tab daily. ??? DIGOXIN 125mcg po qd Recheck in 2 months, ( no longer than 6 months). Continue same target behaviors. Appointment time: 15 minutes, over 1/2 in couseling Discussed increasing dose to 15mg but will leave for now and consider change if needed documented in this encounter Nursing Notes 09/22/2007 4:15 PM CDT >> RENE HILL 09/22/2007 4:22 pm Jude Bills presents for f/u emds. Initial BP 84/52 Temp (Src) 98 (Oral) Ht 3' 10.25 (1.18m) Wt 47 lbs 8.0 oz (21.5kg) Body massindex is 15.61 kg/(m^2).. BP completed using cuff size: pediatric documented in this encounter Plan of Treatment Upcoming Encounters Date Type Specialty Care Team Description 07/27/2022 Ancillary Procedure Cardiology Cordell Juarez MD [address] [facility] [place], [place] [address] (Wo rk) 07/27/2022 Office Visit Cardiology Cordell Juarez MD [address] [facility] [address] [place], [place] [address] (Wo rk) documented as of this encounter Visit Diagnoses Diagnosis Attention deficit disorder with hyperact ivity(314.01) - Primary Attention deficit disorder with hyperact ivity documented in this encounter
--- OUTSIDE RECORDS SUMMARY | 2022-04-10 10:06 | XMS_ITS | Encounter Summary ---
:2000 Author Organization [place] Address Critical access hospital0 [facility] [place] [address] Care Team Providers Name Role Phone Unavailable Primary Care Provider Unavailable Encounter Details Date Type Department Care Team Description 02/07/2007 Results Only [facility] Magnus Sears MD [facility] XXX RESIGNED XXX Results [address] [facility] [address] [place], [place] [address] (Wo rk) Social History Tobacco Use Types [...] 07/27/2022 Ancillary Procedure Cardiology Cordell Juarez MD [facility] [place] [address] [address] (Wo rk) 07/27/2022 Office Visit Cardiology Cordell Juarez MD [address] [place] [address] [place], [place] [address] (Wo rk) documented as of this encounter Procedures Procedure Name Priority Date/Time Associated Diagnosis Commna[facility] ECHO Routine 02/07/2007 2:10 PM Results f or this XTNEHEMIAS SMITH CDT procedure are in ANOM,COMPLETE the results section. documented in this encounter Results ECHO MAURICIOHORACICALMAG ANOM,COMPLETE (02/07/2007 2:10 PM CDT) Component Value Ref Test Analysis Performed At [facility] Range Method Time Signature IMAGECAST PEDIATRIC ECHOCARDIOGRAM ?? RA DIOLOGY RESULT [facility] ??Echocardiogram Lab RESULTS ? Age: ??1 ? Wt: ? Ht: ? BSA: ? BP: ? Xcelera ? Revenue Accountant: ??BF INDICATION: ?? A cardiac ultrasound study based on an exam which included: M-Mode ?2-D ?Doppler ? Color Flow CONCLUSION: ?? Limited exam. ASD device is in goo d position within the atrial baffle. Patient status post Fontan for sin gle ventricle. No pericardial fluid collection. ?? M-Mode Report ?? 1. ??No ECG is recorded. ?? TWO-D ECHO: A somewhat limited exam is performed. There is a single vent ricle with qualitatively normal ventricular function. There is a n ewly placed Amplatzer ASD device within the lateral tunnel. The d evice is in good position and produces no impingement upon vital stru ctures. There is no abnormal echo density to suggest thrombus or veg etation in association with the device. There is no pericardial flui d collection. No valvular abnormalities detected. ?? DOPPLER REPORT: ?? Color flow and spectral Doppler are performed. ??There is mi ld tricuspid regurgitation. The peak velocity is at least 5 m/s ec. The ventricular Dp:Dt is 1600 mmHg/sec2. No flows can be observe d through the ASD device. Doppler interrogation of the branch pulmonar y arteries, SVC and IVC are not obtained. ?? Artemio Silva MD-Pager [phone] ?? Gayathri Ayala MD-Pager [phone] ?? Jorge Link MD-Pager [phone] or [phone] Cordell Juarez MD-Pager [phone] ?? Jayson Bailey MD-Pager [phone] Vilma Rucker MD-Pager [phone] Specimen (Source) Anatomical Collection Method Collection Time Re ceived Time Location / / Volume Laterality 02/07/2007 2:10 PM CDT Magnus Sears MD PROCEDURES Performing Organization Address City/State/ZIP Code Phon e Number RADIOLOGY RESULTS documented in this encounter Visit Diagnoses Not on filedocumented in this encounter
--- OUTSIDE RECORDS SUMMARY | 2022-04-10 10:06 | XMS_ITS | Encounter Summary ---
:2000 Author Organization [place] Address [address] [place] [address] Care Team Providers Name Role Phone Unavailable Primary Care Provider Unavailable Encounter Details Date Type Department Care Team Description 08/18/2007 Abstract M [facility] Abstract, Provider RENETTA LINDSEY [facility] [place] [address] [place] [address] Social History Tobacco Use Types [...] Ancillary Procedure Cardiology Cordell Juarez MD [address] [facility] [place], [place] [address] (Wo rk) 07/27/2022 Office Visit Cardiology Cordell Juarez MD [address] [facility] [address] [place], [place] [address] (Wo rk) documented as of this encounter Visit Diagnoses Not on filedocumented in this encounter
--- OUTSIDE RECORDS SUMMARY | 2022-04-10 10:06 | XMS_ITS | Encounter Summary ---
:2000 Author Organization [place] Address [address] [place] [address] Care Team Providers Name Role Phone Unavailable Primary Care Provider Unavailable Encounter Details Date Type Department Care Team Description 02/07/2007 Historic Notes INTERFACED REPORT Interface, Transcript onMD Social History Tobacco Use Types Packs/Day Years Used Date Smoking Tobacco: Never Comments: none at home Alcohol Use Standard Drinks/Week Comments Not Asked 0 (1 standard drink = 0.6 oz pure alcoho l) Sex Assigned at Date Recorded Male 03/09/2019 1:21 PM CDT documented as of this encounter Progress Notes Interface, Compliance Manager - 09/04/2010 10:57 AM CDT Nursing note: Pt. status D/I: Pt's HR decreased down into high 50's to mid 60's. Rachid Starks MD notified. Had telecommunications support monitoring and to page nurse if decreased below 55. Pt. has pressure dressing in right groin after hematoma development post procedure. Dressing C/D/I, palpable 2+ pedal pulses. All other VSS. A: Pt. slept through noc. P: continue with POC, notify MD of any changes. [Signature] Author:Steph WhiteRN) [Signed 07-Feb-2007 06:42] Interface, Compliance Manager - 09/04/2010 10:56 AM CDT D/I: Pt to be discharged today if echocardiogram shows good results. Cath site at right groin looks good with no drainage or hematoma noted. Pt complains of some pain at sight when he stood up for a period of time to wash this morning. Dr. guan notified. Per mom, pt's primary corporate lawyer assessed pt this morning and ordered pt to remain on bedrest for 72 hours d/t past history of hematoma. Pt went to echo lab at [address] José Miguel Valera nofied to assess results when they become available. A: Pt awaiting discharge to home after being cleared by cardiology team. P: Give discharge teaching and go through paperwork with family once discharge is verified. [Signature] Author:Magda Lew (RN) [Signed 07-Feb-2007 14:52] documented in this encounter Plan of Treatment Upcoming Encounters Date Type Specialty Care Team Description 07/27/2022 Ancillary Procedure Cardiology Cordell Juarez MD [facility] [address] [place] [address] (Arleen valdes) 07/27/2022 Office Visit Cardiology Cordell Juarez MD [address] [facility] [address] [address] [place] [address] (Arleen valdes) documented as of this encounter Visit Diagnoses Not on filedocumented in this encounter
--- OUTSIDE RECORDS SUMMARY | 2022-04-10 10:06 | XMS_ITS | Encounter Summary ---
:2000 Author Organization [place] Address [facility] [place] [address] Care Team Providers Name Role Phone KomalStephen Primary Care Provider [facility] Primary Care Provider [phone] Magnus Zayas DO Primary Care Provider [phone] Magnus Zayas DO Unavailable [phone] Celeste Scales MD Unavailable Magnus Zayas DO Unavailable [phone] Magda Winchester MD Primary Care Provider Encounter Details Date Type Department Care Team Description 02/07/2007 [facility] Ignacio Solo [facility] DC ORDERS (Primary Clinic Meir DUPREE Dx) [address] [place], [place] [phone] Social History Tobacco Use Types Packs/Day Years [...] Juarez MD [address] [place], [place] [address] (Wo rk) 07/27/2022 Office Visit Cardiology Cordell Juarez MD [address] [place], [place] [address] (Wo rk) documented as of this encounter Visit Diagnoses Diagnosis [facility] DC ORDERS - Primary documented in this encounter Additional Health Concerns Infection Onset Date Last Indicated Resolved Time Rule Out COVID-19 12/18/2019 12/18/2019 12/19/2019 3:4 2 PM CDT Rule Out COVID-19 12/21/2019 12/21/2019 12/22/2019 2:3 2 AM CDT documented as of this encounter Care Teams Photographic Press Screwmaker Relationship Specialty Start Date End Date Stephen Sauceda PCP - General Pediatrics 03/06/17 06/24/19 [facility] [address] [place] [address] [facility] PCP - General 06/25/19 02/22/[address] [place] [address] Magnus Zayas, PCP - General Student in organized 02/23/20 09/17/[address] education/training program [address] [place], [place] [address] Magda Winchester PCP - General Family Medicine 09/18/21 MD [place] Magnus Zayas, Assigned PCP 02/28/2004/06 DO 420 [facility] [address] [place] [address] Celeste Scales MD Assigned PCP 11/10/20 11/19/[address] [address] Magnus Zayas, Assigned PCP 11/20/[address] DO [address] [id number] documented as of this encounter
--- OUTSIDE RECORDS SUMMARY | 2022-04-10 10:06 | XMS_ITS | Encounter Summary ---
:2000 Author Organization [place] Address [address] [place] [address] Care Team Providers Name Role Phone Unavailable Primary Care Provider Unavailable Encounter Details Date Type Department Care Team Description 02/23/2007 Historic Results INTERFACED REPORT Paresh Gooden MD [facility] [address] [place], [place] [address] (Wo rk) Social History [...] Ancillary Procedure Cardiology Cordell Juarez MD [facility] [place] [address] [id number] (Wo rk) 07/27/2022 Office Visit Cardiology Cordell Juarez MD [address] [place] [address] [facility] [place], [place] [phone] (Wo rk) documented as of this encounter Procedures Procedure Name Priority Date/Time Associated Comments Diagnosis HEMOGRAM DIFFERENTIAL STAT 02/23/2007 12:05 Re sults for this AND PLATELET PM CDT procedure are i n the results section. BLOOD CULTURE STAT 02/23/2007 12:05 Results fo r this PM CDT procedure are i n the results section. BASIC METABOLIC PANEL STAT 02/23/2007 12:05 Re sults for this PM CDT procedure are i n the results section. documented in this encounter Results (ABNORMAL) Hemogram differential and platelet (02/23/2007 12:05 PM CDT) [facility] gist Method Time Signature MCV 79 70 - 100 [place] fl MCH 27.3 26.5 - M[facility] 33.0 pg MCHC 34.7 31.5 - MIS[facility] 36.5 g/dL RDW 12.7 10.0 - M[facility] 15.0 % WBC 5.7 5.0 - MIS[facility] 14.5 10e9/L RBC Count 5.13 3.7 - 5.3 [facility] 10e12/L Hemoglobin 14.0 10.5 - MISYS 14.0 g/dL Hematocrit 40.3 31.5 - MISYS 43.0 % % Neutrophils 51 32 - 54 % MISYS % Lymphocytes 30 27 - 57 % MISYS % Monocytes 12 (H) 0 - 10 % MISYS % Eosinophils 6 0 - 6 % MIS[facility] % Basophils 1 0 - 1 % [facility] Platelet Count 251 150 - 450 [place] 10e9/L Absolute 3.0 1.3 - 8.1 [facility] Neutrophil 10e9/L Absolute 1.7 1.1 - 8.6 [facility] Lymphocytes 10e9/L Absolute 0.7 0.0 - 1.1 [facility] Monocytes 10e9/L Absolute 0.3 0.0 - 0.7 [facility] Eosinophils 10e9/L Absolute 0.0 0.0 - 0.2 [facility] Basophils 10e9/L Diff Method Automated [facility] Method Specimen Anatomical Collection Method Collection Time Receive d Time (Source) Location / / Volume Laterality 02/23/2007 12:05 02/23/2007 PM CDT 11:54 AM CDT Ralph Gooden MD LAB - BLOOD ORDERABLES Performing Organization Address City/State/ZIP Code Phon e Number M[facility] Basic metabolic panel (02/23/2007 12:05 PM CDT) [facility] Method Time Signature Sodium 139 133 - 143 [place] mmol/L Potassium 3.9 3.4 - 5.3 [place] mmol/L Chloride 104 98 - 110 [place] mmol/L Carbon Dioxide 25 20 - 32 [place] mmol/L Glucose 75 60 - 99 [place] mg/dL Urea Nitrogen 18 5 - 24 [place] mg/dL Creatinine 0.41 0.20 - [facility] 0.70 mg/dL GFR Estimate GFR not mL/min/1. [facility] calculated, 7m2 patient <16 years old. GFR Estimate If GFR not mL/min/1. [facility] Black calculated, 7m2 patient <16 years old. Calcium 9.2 8.7 - [facility] 10.8 mg/dL Anion Gap 10 6 - 17 [place] mmol/L Specimen Anatomical Collection Method Collection Time Receive d Time (Source) Location / / Volume Laterality 02/23/2007 12:05 02/23/2007 PM CDT 11:54 AM CDT Ralph Gooden MD LAB - BLOOD ORDERABLES Performing Organization Address City/State/ZIP Code Phon e Number [place] Blood culture (02/23/2007 12:05 PM CDT) [facility] Method Time Signature Specimen Right Arm [facility] Description Culture Micro No growth [facility] after 6 days Micro Report FINAL [facility] Status [id number] Specimen Anatomical Collection Method Collection Time Receive d Time (Source) Location / / Volume Laterality 02/23/2007 12:05 02/23/2007 PM CDT 11:54 AM CDT Ralph Gooden MD LAB - MICRO GENERAL ORDERABL ES Performing Organization Address City/State/ZIP Code Phon e Number MIS[place] documented in this encounter Visit Diagnoses Not on filedocumented in this encounter
--- OUTSIDE RECORDS SUMMARY | 2022-04-10 10:06 | XMS_ITS | Encounter Summary ---
:2000 Author Organization [place] Address [facility] [place] [address] Care Team Providers Name Role Phone Unavailable Primary Care Provider Unavailable Encounter Details Date Type Department Care Team Description 03/26/2007 Results Only [facility] Rudy Juarez MD Hospital Results [address] [place], [place] [address] (Wo rk) Social History Tobacco Use Types [...] Ancillary Procedure Cardiology Cordell Juarez MD [address] [place] [phone] (Wo rk) 07/27/2022 Office Visit Cardiology Cordell Juarez MD [address] [place] [phone] (Wo rk) documented as of this encounter Procedures Procedure Name Priority Date/Time Associated Diagnosis Comme nts DOPPLER ECHO Routine 03/26/2007 3:31 PM Result s for this COLOR FLOW VELOCITY CDT procedur e are in MAP the results section. documented in this encounter Results DOPPLER COLOR FLOW VELOCITY MAP (03/26/2007 3:31 PM CDT) Anatomical Region Laterality Modality Other Specimen (Source) Anatomical Collection Method Collection Time Re ceived Time Location / / Volume Laterality 03/26/2007 3:31 PM CDT Impressions 03/26/2007 4:46 PM CDT PEDIATRIC ECHOCARDIOGRAM Mar 26, 2007 4:32 PM [facility] E chocardiogram Lab ?? : 2000 ? Wt: [ ] ? Ht : [ ] ? BSA: [ ] ? BP: [ ] [employer]era ? Open Hearth Laborer: M-Mode, 2-D, D oppler and Color Flow SIGNS AND SYMPTOMS: 6WK F/U CONCLUSION: Status post Fontan. Good sin gle ventricle systolic function.Fortino flow appears to be lamina r from the SVC to the branch pulmonary arteries. Amplatzer ASD device closes the fenestrated Fontan. 2+AV valve insufficiency. No aor tic insufficiency. No pericardial effusion. TWO-D ECHO: Recordings are performed from parasterna l, apical, subcostal and suprasternal notch windows. ??Status pos t Fontan. Good single ventricle systolic function. The AV valve and semi lunar valve motions are normal.Fortino flow appears to be laminar from the SVC to the branch pulmonary arteries. Amplatzer ASD device closes the fenestrated Fontan. 2+AV valve insufficiency. No aor tic insufficiency. No pericardial effusion. DOPPLER REPORT: Color flow and spectral Doppler are perf ormed. ??2+AV valve insufficiency. No aortic insufficiency. No leak through the Amplatzer ASD device closing the fenestrated Fonta n. Dp/Dt is 1066msec. Antegrade flow across the aortic valve i s 0.8 m/sec. Artemio Silva MD ??(Pager [phone]) Gayathri Ayala MD ??(Pager ) Jorge Link MD ??([phone] or ) Cordell Juarez MD ??(Pager [phone]) Jayson Bailey MD ??(Pager [phone]) Aga Rucker MD ??(Pager ) Cordell Juarez MD [facility] documented in this encounter Visit Diagnoses Not on filedocumented in this encounter
--- OUTSIDE RECORDS SUMMARY | 2022-04-10 10:07 | XMS_ITS | Encounter Summary ---
:2000 Author Organization [place] Address [address] [place] [address] Care Team Providers Name Role Phone Unavailable Primary Care Provider Unavailable Encounter Details Date Type Department Care Team Description 12/04/2006 Historic Results INTERFACED REPORT Interface, Hetal modi [...] Ancillary Procedure Cardiology Cordell Juarez MD [address] [place] [phone] (Wo rk) 07/27/2022 Office Visit Cardiology Cordell Juarez MD [address] [place] [address] [phone] (Wo rk) documented as of this encounter Procedures Procedure Name Priority Date/Time Associated Diagnosis Comme nts EKG 12 LEAD Routine 12/04/2006 3:11 PM Results f or this CDT procedure are i n the results section . documented in this encounter Results EKG 12 LEAD (12/04/2006 3:11 PM CDT) Component Value Ref Range Test Analysis Performed Pathologis t Method Time At Signature Ventricular Rate 63 BPM RADIOLOGY RESULTS Atrial Rate 63 BPM RADIOLOGY RESULTS NM Interval 146 ms RADIOLOGY RESULTS QRS Duration 80 ms RADIOLOGY RESULTS QT 384 ms RADIOLOGY RESULTS QTc 392 ms RADIOLOGY RESULTS P [place] 0 degrees RADIOLOGY RESULTS R AXIS -83 degrees RADIOLOGY RESULTS T [place] 56 degrees RADIOLOGY RESULTS Interpretation * Pediatric ECG Analysis * RADIOLOGY ECG Sinus bradycardia RESULTS Left axis deviation Right ventricular hypertrophy with strain pattern Specimen Anatomical Collection Method Collection Time Receive d Time (Source) Location / / Volume Laterality 12/04/2006 3:11 PM 7 8:50 CDT AM CDT Transcripton Interface ECG ORDERABLES Performing Organization Address City/State/ZIP Code Phon e Number RADIOLOGY RESULTS documented in this encounter Visit Diagnoses Not on filedocumented in this encounter
--- OUTSIDE RECORDS SUMMARY | 2022-04-10 10:07 | XMS_ITS | Encounter Summary ---
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) Ignacio Solo MD [address] [place] [address] Referral ID Status Reason Start Date Expiration Date Visits Requ ested Visits Authorized [id number] Closed 12/31/2006 06/16/2011 1 1 Encounter Details Date Type Department Care Team Description 12/31/2006 Orders Only [facility] Ignacio Solo CONG EN HE[facility] ANOMALY Clinic Meir DUPREE NEC (Primary Dx) [address] [place] [phone] Social History Tobacco Use Types Packs/Day Years Used Date Smoking Tobacco: Never Comments: none at home Alcohol Use Standard Drinks/Week Comments Not Asked 0 (1 standard drink = 0.6 oz pure alcoho l) Sex Assigned at Date Recorded Male 03/09/2019 1:21 PM CDT documented as of this encounter Nursing Notes 12/31/2006 12:00 PM CDT >> DINO SIMPSON 12/31/2006 3:59 pm Per [employer] Techn[employer] message pt referred to [facility] - Infectious Disease (Dr. Case) who only sees Infectious Disease patients at [facility]. Order sent for co-sign. This does not consititute a referral for service as pt has open access P1 product which pays at whatever tier level benefit they participate with. 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
--- OUTSIDE RECORDS SUMMARY | 2022-04-10 10:07 | XMS_ITS | Encounter Summary ---
:2000 Author Organization [place] Address [facility] [place] [address] Care Team Providers Name Role Phone Unavailable Primary Care Provider Unavailable Encounter Details Date Type Department Care Team Description 04/03/2006 Discharge Summary Sukhdeep Dodd MD (Waste Disposal Plant Operator) [facility] [address] [place], [place] [address] Social History Tobacco Use Types Packs/Day Years Used Date Smoking Tobacco: Never Comments: none at home Alcohol Use Standard Drinks/Week Comments Not Asked 0 (1 standard drink = 0.6 oz pure alcoho l) Sex Assigned at Date Recorded Male 03/09/2019 1:21 PM CDT documented as of this encounter Progress Notes Jostin Dodd - 04/15/2006 1:40 PM KINDERGARTNER FINAL ADMITTING DIAGNOSIS: Malrotation. DISCHARGE DIAGNOSIS: Malrotation. OPERATIVE PROCEDURES PERFORMED: [place] procedure on 04/03/2006. OPERATIVE SURGEON: Jostin Dodd MD. SERVICE: Admission Pediatric Surgery. BRIEF HISTORY OF PRESENT ILLNESS: The patient is a 6-year-old male who presented with malrotation. 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 Patient has undergone a Fontanprocedure and Ross procedure to correct this anomaly. The patient has a history of intermittent abdominal pain. No vomiting. No nausea. No hematochezia. No weight loss. No fever, chills, night sweats, or other constitutional symptoms. 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 HOSPITAL COURSE: The patient came to the operating room for the elective Bossman's procedure on 04/03/2006. He underwent the procedure without incident. He was transferred to the regular Pediatric Surgery luke 5A postoperatively. The patient had an NG tube and a V[place] catheter that was discontinued postoperative day # 1. The NG tube remained until 04/06/2006. It was in for 4 days postoperatively. The patient began passing flatus, denied nausea, denied vomiting, started a clear liquid diet on 04/06/2006, postoperative day # 4. He was voiding spontaneously, passing flatus. He had no stool. He tolerateda clear liquid diet and was advanced on the on the day of discharge. His incision was clean, dry, and intact. He remained afebrile. Pain was well controlled with morphine initially and then he wasswitched to oral ibuprofen on a scheduled q. 6-hour basis. Events during the hospital included mild bradycardia. During times of sleep the patient's heart rate would go down to the 50s to the 40s. Cardi ology consult was called informally, as the patient was followed by an outside reeler operator for his cardiac history. The patient was on Digoxin 80 mg b.i.d. and Enalapril, which he was taking through his NG tube. The reeler operator's recommendations were to watch the heart rate, not intervene unless theblood pressure dropped or he became otherwise unstable. His medications were continued at the request of the reeler operator at the current dosages, and the patient remained stable. His heart rate was in the mid 90s while awake, and he was otherwise asymptomatic. The patient was discharged from the hospital on 04/07/2006 on Digoxin, Enalapril, and scheduled ibuprofen. He will follow up with Dr. Dodd in the clinic 2 weeks after discharge for a wound check. The patient was tolerating a regular diet, passing flatus, and pain was well controlled at the time of discharge. Electronically signed on 04/15/2006 13:39 by JOSTIN DODD MD As dictated by RENE LAWRENCE MD MT: [email or web address] Name: PIERRE BILLS MRN: [id number] Account: [id number] : 2000 Admit Date: [id number] Discharge Date: 04/07/2006 Document: [id number] ERGARTNER documented in this encounter Plan of Treatment Upcoming Encounters Date Type Specialty Care Team Description 07/27/2022 Ancillary Procedure Cardiology Cordell [facility] [address] [facility] [address] [place] [address] (Wo rk) 07/27/2022 Office Visit Cardiology Cordell Juarez MD [address] [place] [address] (Wo rk) documented as of this encounter Visit Diagnoses Not on filedocumented in this encounter
--- OUTSIDE RECORDS SUMMARY | 2022-04-10 10:07 | XMS_ITS | Encounter Summary ---
:2000 Author Organization [place] Address [address] [place] [address] Care Team Providers Name Role Phone Unavailable Primary Care Provider Unavailable Reason for Visit Reason Comments Fever multiple sibs have strep Hives Abdominal Pain Encounter Details Date Type Department Care Team Description 06/27/2006 Office Visit [facility] Janine De La Torre STREP SORE THROAT (Primary Dx); Clinic Meir Fischer MD FEVER [address] [place] [address] [place] [phone] (Wo rk) Social History Tobacco Use Types Packs/Day Years Used Date Smoking Tobacco: Never Comments: none at home Alcohol Use Standard Drinks/Week Comments Not Asked 0 (1 standard drink = 0.6 oz pure alcoho l) Sex Assigned at Date Recorded Male 03/09/2019 1:21 PM CDT documented as of this encounter Last Filed Vital Signs Vital Sign Reading Time Taken Comments Blood Pressure 90/56 06/27/2006 10:15 AM TOBACCO SAMPLER Pulse - - Temperature 37 ??C (98.6 ??F) 06/27/2006 10:15 AM TOBACCO SAMPLER Respiratory Rate - - Oxygen Saturation - - Inhaled Oxygen Concentration - - Weight 18.4 kg (40 lb 8 oz) 06/27/2006 10:15 AM TOBACCO SAMPLER Height 112.4 cm (3' 8.25) 06/27/2006 10:15 AM TOBACCO SAMPLER Ssrkwg-buz-Cwzymu Percentile 23.09 % 06/27/2006 10:15 AM TOBACCO SAMPLER Growth Chart: CDC (Boys, 2-20 Years) Body Mass Index 14.54 06/27/2006 10:15 AM TOBACCO SAMPLER Body Mass Index Percentile 22.79 % 06/27/2006 10:[address] Growth Chart: CDC (Boys, 2-20 Years) documented in this encounter Progress Notes Janine De La Torre - 06/27/2006 11:36 AM CST SUBJECTIVE: Jude is a 6 year old male with a history of complex cyanotic heart disease who presents with his mother with sore throat, fever, abdominal pain with nausea for 4 days. Fever has been as high as 101 at home. The abdominal pain has been vague, in location. He did recently undergo surgery for malrotationon March, but his problems with hematoma at the surgical site did finally resolve prior to the onset of his current illness. Of note, 2 siblings in the household were diagnosed with strep this week. Mom has also noticed some intermittent hives once 2 weeks ago, then again last night. These resolve quickly with doses of Benadryl at home. They have not been able to come up with a trigger for these. There have been no new lotions, detergents, fabric softeners, or medications recently. He is to take a make a wish trip to [facility] next week. Other symptoms: as above. History negative for: decreased appetite, decreased activity, cough and mattering conjuntivitis. Past Medical History Diagnosis Date ??? 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 INTESTINAL FIXATION ANOM s/p [place] procedure 03/2006 ??? ESOPHAGEAL REFLUX ??? ANOMALIES OF SPLEEN Polysplenia Current Outpatient Rx Name Route Sig Dispense Refill ??? AMOXICILLIN 250 MG/5ML OR SUSR Oral 10 mL by mouth every 12 hrs for 10 days QS 0 ??? VASOTEC 5 MG OR TABS Oral 3/4 tab po bid ??? DIGOXIN POWD Does not apply 1.6ml po bid 0 ??? ASPIRIN 81 MG OR CPEP Oral None Entered Allergies Allergen Reactions ??? Captopril Per Mom, makes him very hyper, drug used for cardiac problem (has had 3 open heart surgeries. ??? [place] Possession OBJECTIVE: BP 90/56 Temp (Src) 98.6 (Oral) Ht 3' 8.25 (1.12m) Wt 40 lbs 8.0 oz (18.4kg) 10.36% of growth percentile based on kuniow-xeo-feb. General: mildly ill appearing, non-toxic, in no apparent distress, well developed and well nourished, in no respiratory distress and acyanotic, alert and cooperative Skin: no suspicious lesions or rashes Head: atraumatic, normocephalic, symmetric Eye: conjunctiva clear bilaterally Neck: supple, few small anterior cervical nodes and posterior cervical nodes ENT: moderate tonsillar erythema, tonsils 2+ in size bilaterally, no tonsillar exudates, no vesiclesnoted in the mouth, no palatal petechiae, TM's pearly hayes, normal light reflex bilateral and oral mucous membranes moist Chest/Lungs: clear to auscultation bilaterally without wheeze or crackles, no retractions and no nasal flaring CV: regular rate and rhythm and no murmurs, rubs, or gallops Abdomen: bowel sounds present, soft, non-tender and non distended, multiple well healed surgical scars present on the the chest and abdomen which are flat and non inflamed Rapid Strep test is positive ASSESSMENT: Strep Phayrngitis PLAN: Per orders. Gargle, use acetaminophen or other OTC analgesic, and take Amoxicillin for the full 10 day course. Call if other family members develop similar symptoms. See prn, return if no improvement or worsening symptoms. CCO SAMPLER documented in this encounter Nursing Notes 06/27/2006 10:15 AM CST >> ONELIA MIRELES 06/27/2006 10:30 am Patient presents with: Fever - multiple sibs have strep Hives Abdominal Pain Initial BP 90/56 Temp (Src) 98.6 (Oral) Ht 3' 8.25 (1.12m) Wt 40 lbs 8.0 oz (18.4kg) Body mass index is 14.54 kg/(m^2). BP completed using cuff size. pediatric. Onelia Mireles LPN documented in this encounter Plan of Treatment Upcoming Encounters Date Type Specialty Care Team Description 07/27/2022 Ancillary Procedure Cardiology Cordell Juarez MD [address] [facility] [place], [place] [address] (Wo rk) 07/27/2022 Office Visit Cardiology Cordell Juarez MD [address] [place], [place] [phone] (Wo rk) documented as of this encounter Procedures Procedure Name Priority Date/Time Associated Diagnosis Comme nts HCL STREP GROUP A Routine 06/27/2006 10:46 AM Fever Res ults for this AG (RAPID) TOBACCO SAMPLER procedure are i n the results section. documented in this encounter Results STREP GROUP A AG (RAPID) (06/27/2006 10:46 AM TOBACCO SAMPLER) Component Value Ref Test Analysis Performed At [facility] Range Method Time Signature Specimen Throat [facility] Rapid Strep A POSITIVE: Group [place] Screen A Streptococcal [facility] antigen detected CLINIC LAB by immunoassay. Report status FINAL [id number] [facility] Specimen Anatomical Collection Method Collection Time Receive d Time (Source) Location / / Volume Laterality 06/27/2006 10:46 06/27/2006 AM TOBACCO SAMPLER 10:47 AM TOBACCO SAMPLER Janine De La Torre MD LABORATORY Performing Organization Address City/State/ZIP Code Phon e Number [facility] [address] [place], [place] [address] [address] [facility] documented in this encounter Visit Diagnoses Diagnosis Streptococcal sore throat - Primary Fever and other physiologic disturbances of temperature regulation documented in this encounter
--- OUTSIDE RECORDS SUMMARY | 2022-04-10 10:07 | XMS_ITS | Encounter Summary ---
:2000 Author Organization [place] Address [address] [place] [address] Care Team Providers Name Role Phone Unavailable Primary Care Provider Unavailable Reason for Visit Reason Comments Pre-Op Exam preop surgerey 02/06/07 Encounter Details Date Type Department Care Team Description 02/04/[address] [facility] Ignacio Solo PREO P EXAM OTHER SPECIFIED (Primary Dx); [facility]OMAL[facility] N[facility]; [address] HYPOPLASTIC [place] [address] [phone] Social History Tobacco Use Types Packs/Day Years Used Date Smoking Tobacco: Never Comments: none at home Alcohol Use Standard Drinks/Week Comments Not Asked 0 (1 standard drink = 0.6 oz pure alcoho l) Sex Assigned at Date Recorded Male 03/09/2019 1:21 PM CDT documented as of this encounter Last Filed Vital Signs Vital Sign Reading Time Taken Comments Blood Pressure 88/50 02/04/2007 8:00 AM CDT Pulse 79 02/04/2007 8:00 AM CDT Temperature 36.6 ??C (97.8 ??F) 02/04/2007 8:00 AM CDT Respiratory Rate - - Oxygen Saturation 93% 02/04/2007 8:00 AM CDT Inhaled Oxygen Concentration - - Weight 19.5 kg (43 lb) 02/04/2007 8:00 AM CDT Height 116.2 cm (3' 9.75) 02/04/2007 8:00 AM CDT Locjat-ihz-Qafczm Percentile 20.18 % 02/04/2007 8:00 AM CDT Growth Chart: [facility] (Boys, 2-20 Years) Body Mass Index 14.44 02/04/2007 8:00 AM CDT Body Mass Index Percentile 19.05 % 02/04/2007 8:00 AM CD T Growth Chart: [facility] (Boys, 2-20 Years) documented in this encounter Progress Notes Dominga Maya - 02/04/2007 8:31 AM CDT Date of exam: 02/04/2007 Date of surgery: 02/06/07 Surgeon: [facility] Facility: [facility] Procedure: heart surgery Expected anesthesia method: General PRESENT HISTORY: Chief complaint: hx of hypoplastic left heart, complex congenital heart disease, now with decreasingoxygen saturations. History of Present Illness: complex congenital heart disease with decreasing oxygen saturations, andsuspected collateral development. Symptom onset: . Current medications: digoxin and vasotec There has not been any use of aspirin in the 7 days prior to surgery. Captopril and [place] leaf FAMILY HISTORY: Not known PAST HISTORY: Recent hx of dental abscesses followed closely by dentist. Has had hx of excessive bruising after surgeries but no other complications. Hx of asthma now resolved for several years. Past history negative for allergies, croup, prior sedation or anesthesia reactions, hepatitis, HIV, chickenpox. No contagious contact or chickenpox, measles, mumps, or Romanian measles exposures. Immunizations are up to date. PAST ILLNESSES/HOSPITALIZATIONS: Hospitalizations: Mult open heart cardiac surgeries PAST SURGERIES: Previous operations: See above REVIEW OF SYSTEMS: Review of systems currently positive for increased fatigue, occasional cyanosis, no syncope, seizures, SOB, or wheeze. Otherwise noncontributory for respiratory, cardiovascular, gastrointestinal, musculoskelatel, and mental/developmental systems. PHYSICAL EXAM: BP 88/50 Pulse 79 Temp (Src) 97.8 (Oral) Ht 3' 9.75 (1.16m) Wt 43 lbs (19.5kg) SaO2 83% Normal exam: GENERAL: Alert, vigorous, is in no acute distress. SKIN: Skin is clear. HEAD: The head is normocephalic. EYES: The eyes are normal. The conjunctivae and cornea normal. Red reflexes are seen bilaterally. EARS: The external auditory canals are clear and the tympanic membranes are normal. NOSE: Clear THROAT: The throat is clear. Gums without erythema or abscess NECK: The neck is supple and thyroid is nonpalpable. LYMPH NODES: There are no palpably enlarged lymph nodes. LUNGS: The lung stratton are clear to auscultation. CV: RR, 1-2/6 FAIZAN with occasional click, no cyanosis ABDOMEN: Abdomen is not distended and not tender. No Hepatosplenomegaly. No masses. GENITALIA: Normal appearance genitalia. No inguinal herniae are present. EXTREMITIES: FROM all joints. NEUROLOGIC: Normal tone throughout. Has normal reflexes for age IMPRESSION: Complex cyanotic congenital heart disease. Acceptable candidate for surgery. Cleared by immunology- Dr. Case To be seen by dentist today for final clearance from dental concerns. Ignacio Solo MD 02/04/2007 [facility], [address] [place] [address]. [address], [place] [address] documented in this encounter Nursing Notes 02/04/2007 8:00 AM CDT >> DOMINGA MAYA 02/04/2007 8:31 am Jude Bills presents for Patient presents with: Pre-Op Exam - preop surgerey 02/06/07 . Initial BP 88/50 Pulse 79 Temp (Src) 97.8 (Oral) Ht 3' 9.75 (1.16m) Wt 43 lbs (19.5kg) SaO2 83% Body mass index is 14.45 kg/(m^2).. BP completed using cuff size: pediatric documented in this encounter Plan of Treatment Upcoming Encounters Date Type Specialty Care Team Description 07/27/2022 Ancillary Procedure Cardiology Larry, Cordell Barajas MD [address] [address] (Wo rk) 07/27/2022 Office Visit Cardiology Larry, Cordell skelton MD [address] [facility] [address] [place] [address] (Wo rk) documented as of this encounter Visit Diagnoses Diagnosis Other specified pre-operative examinatio n - Primary Other specified congenital anomaly of he art(746.89) Other specified congenital anomaly of he art Hypoplastic left heart syndrome documented in this encounter
--- OUTSIDE RECORDS SUMMARY | 2022-04-10 10:07 | XMS_ITS | Encounter Summary ---
:2000 Author Organization [place] Address [address] [place] [address] Care Team Providers Name Role Phone Unavailable Primary Care Provider Unavailable Reason for Visit Reason Onset Date Comments Infection 01/07/2007 Encounter Details Date Type Department Care Team Description 01/07/2007 Telephone [facility] Ignacio Solo MD Infection Bee [address] [facility] [address] [place] [address] [place] [address] [phone] Social History Tobacco Use Types Packs/Day Years Used Date Smoking Tobacco: Never Comments: none at home Alcohol Use Standard Drinks/Week Comments Not Asked 0 (1 standard drink = 0.6 oz pure alcoho l) Sex Assigned at Date Recorded Male 03/09/2019 1:21 PM CDT documented as of this encounter Miscellaneous Notes Telephone Encounter - Ignacio Solo - 01/07/2007 10:21 AM CDT Message left for mother. Mother may call back if any concerns after dentist visit. Telephone Encounter - Lelia Mendoza - 01/07/2007 8:40 AM CDT Mom calling stating pt has hx of hypoplastic L heart and hx of tooth abcess after extractions or losing teeth. Pt had tooth pulled last wk and now is developing abcess. Pt has apt to see dentist for abx today at 9 am. Mom wanting to know if you would like pt to have this cultured prior to starting abx. Mom is at [phone]. Mom states no temp at this time but has red inflamed areas with white heads that are usually pus filled-they have not broke open yet. Routing as high as mom wants this addressed MARIA E.Lelia Mendoza RN documented in this encounter Plan of Treatment Upcoming Encounters Date Type Specialty Care Team Description 07/27/2022 Ancillary Procedure Cardiology Cordell Juarez MD [address] [facility] [address] [place], [place] [id number] (Arleen valdes) 07/27/2022 Office Visit Cardiology Cordell Juarez MD [address] [place], [place] [phone] (Arleen valdes) documented as of this encounter Visit Diagnoses Not on filedocumented in this encounter
--- OUTSIDE RECORDS SUMMARY | 2022-04-10 10:07 | XMS_ITS | Encounter Summary ---
:2000 Author Organization [place] Address [address] [place] [address] Care Team Providers Name Role Phone Unavailable Primary Care Provider Unavailable Encounter Details Date Type Department Care Team Description 02/27/2006 Results Only [facility] Jostin Wayne, [facility] Results MD [facility] [address] [place], [place] [address] Social History Tobacco Use [...] 07/27/2022 Ancillary Procedure Cardiology Cordell Juarez MD [facility] [place] [address] [address] (Wo rk) 07/27/2022 Office Visit Cardiology Cordell Juarez MD [id number] [place], [place] [address] (Arleen rk) documented as of this encounter Procedures Procedure Name Priority Date/Time Associated Diagnosis Comme nts US ABDOMEN Routine 02/27/2006 8:50 AM Results for this LIMITED CDT procedure are i n the results section. documented in this encounter Results SONO ABDOMEN LIMITED (02/27/2006 8:50 AM CDT) Anatomical Region Laterality Modality Other Specimen (Source) Anatomical Collection Method Collection Time Re ceived Time Location / / Volume Laterality 02/27/2006 8:50 AM CDT Impressions 02/27/2006 4:24 PM CDT LIMITED ABDOMINAL ULTRASOUND - 02/27/2006 ?? HISTORY: 6-year-old with hypoplastic rig ht heart syndrome. The scan is done to determine if the patient has a spleen. ?? FINDINGS: There is a somewhat lobulated spleen identified which has three prominent lobulations which appear to connect. The spleen measures approximately 8 cm in length an d is otherwise normal. ?? IMPRESSION: ?? 8 cm in length lobulated spleen identifi ed. Jostin Wayne MD SPECIAL [facility]AG[facility]UD[facility] documented in this encounter Visit Diagnoses Not on filedocumented in this encounter
--- OUTSIDE RECORDS SUMMARY | 2022-04-10 10:07 | XMS_ITS | Encounter Summary ---
:2000 Author Organization [facility] Address [address] [place] [address] Care Team Providers Name Role Phone Unavailable Primary Care Provider Unavailable Encounter Details Date Type Department Care Team Description 02/06/[address] [facility] Trell Tolbert MD [facility] Results Hospitalist Prog chapin [address] [facility] [phone] [place] [address] (Wo rk) Social History Tobacco Use Types [...] 07/27/2022 Ancillary Procedure Cardiology Cordell Juarez MD [address] [place], [place] [phone] (Wo rk) 07/27/2022 Office Visit Cardiology Cordell Juarez MD [address] [id number] (Wo rk) documented as of this encounter Procedures Procedure Name Priority Date/Time Associated Diagnosis Comme nts HC CHEST TWO VIEWS, Routine 02/06/2007 5:14 PM Re sults for this FRONT/LAT CDT procedure are i n the results section. documented in this encounter Results CHEST X-RAY 2 VW (02/06/2007 5:14 PM CDT) Anatomical Region Laterality Modality Other Specimen (Source) Anatomical Collection Method Collection Time Re ceived Time Location / / Volume Laterality 02/06/2007 5:14 PM CDT Impressions 02/07/2007 1:03 PM CDT Examination: ??Plain radiograph of chest , 2 views. Feb 06, 2007 5:14:00 PM Indication: ??Double outlet right ventri brian, complicated by d-transposition of the great vessels, pu lmonary atresia, a hypoplastic mitral valve, a hypoplastic left ventric le and bilateral superior vena cava. ??Surgeries include a central shun t with resection of the atrial septum on August 08, 2001, followed by a bilateral bidirectional Fortino procedure on December 24, 2001, extrac ardiac Fontan procedure Comparison: Upper GI on 01/22/2006. Findings: Midline sternotomy wires, surg ical changes of Fontan, Fortino procedure. The conduit is radiopaque. Ne w Amplatz closure device. Lungs and costophrenic angles are clear. Right-sided aortic arch. Cardiomediastinal silhouette is unchange d. Impression: 1. Clear lungs. 2. Radiopaque vs calcified conduit. Comp arison to a remote study may be helpful. I have personally reviewed the image and initial interpretation and agree with the findings. Trell Tolbert MD GENERAL IMAGING documented in this encounter Visit Diagnoses Not on filedocumented in this encounter
--- OUTSIDE RECORDS SUMMARY | 2022-04-10 10:07 | XMS_ITS | Encounter Summary ---
:2000 Author Organization [place] Address [facility] [place] [address] Care Team Providers Name Role Phone Unavailable Primary Care Provider Unavailable Encounter Details Date Type Department Care Team Description 12/04/2006 Historic Results INTERFACED REPORT Jagdeep Maloney ra, RN [place] [facility] [address] [facility] [place] [address] (Wo rk) Social History Tobacco Use Types [...] Ancillary Procedure Cardiology Cordell Juarez MD [address] [place], [place] [address] (Wo rk) 07/27/2022 Office Visit Cardiology Cordell Juarez MD [address] [place], [place] [address] (Wo rk) documented as of this encounter Procedures Procedure Name Priority Date/Time Associated Diagnosis Comme nts DIGOXIN LEVEL Routine 12/04/2006 4:18 PM Results for this CDT procedure are i n the results section . documented in this encounter Results Digoxin level (12/04/2006 4:18 PM CDT) P athologist Signature Digoxin Level 0.5 0.5 - 2.0 MISYS ug/L Specimen Anatomical Collection Method Collection Time Receive d Time (Source) Location / / Volume Laterality 12/04/2006 4:18 PM 7 4:15 CDT PM CDT Sugey Maloney RN LAB - BLOOD ORDERABLES Performing Organization Address City/State/ZIP Code Phon e Number MISYS documented in this encounter Visit Diagnoses Not on filedocumented in this encounter
--- OUTSIDE RECORDS SUMMARY | 2022-04-10 10:07 | XMS_ITS | Encounter Summary ---
:2000 Author Organization [place] Address [facility]0 [place] [address] Care Team Providers Name Role Phone Unavailable Primary Care Provider Unavailable Encounter Details Date Type Department Care Team Description 01/22/2006 Historic Results [facility]-Camille Petit MD Hospitalists [facility] [place], [place] [phone] (Wo rk) Social History Tobacco Use Types [...] Ancillary Procedure Cardiology Cordell Juarez MD [address] [place] [address] [phone] (Wo rk) 07/27/2022 Office Visit Cardiology Cordell Juarez MD [facility]0 [place] A [address] [phone] (Wo rk) documented as of this encounter Procedures Procedure Name Priority Date/Time Associated Comments Diagnosis PROTEIN S TOTAL ANTIGEN Routine 01/22/2006 10:09 Results for this AM CDT procedure are i n the results section. HEMOGRAM DIFFERENTIAL Routine 01/22/2006 10:09 Re sults for this AND PLATELET AM CDT procedure are i n the results section. BLOOD SMEAR MORPHOLOGY Routine 01/22/2006 10:09 R esults for this AM CDT procedure are i n the results section. VON WILLEBRAND FACTOR Routine 01/22/2006 10:09 Re sults for this MULTIMER AM CDT procedure are i n the results section. VON WILLEBRAND ANTIGEN Routine 01/22/2006 10:09 R esults for this AM CDT procedure are i n the results section. TSH Routine 01/22/2006 10:09 Results for this AM CDT procedure are i n the results section. THROMBIN TIME Routine 01/22/2006 10:09 Results fo r this AM CDT procedure are i n the results section. T4 FREE Routine 01/22/2006 10:09 Results for this AM CDT procedure are i n the results section. RISTOCETIN COFACTOR Routine 01/22/2006 10:09 Resu lts for this AM CDT procedure are i n the results section. INR Routine 01/22/2006 10:09 Results for this AM CDT procedure are i n the results section. PROTEIN S ANTIGEN FREE Routine 01/22/2006 10:09 R esults for this AM CDT procedure are i n the results section. PROTEIN C CHROMOGENIC Routine 01/22/2006 10:09 Re sults for this AM CDT procedure are i n the results section. PLATELET COUNT Routine 01/22/2006 10:09 Results f or this AM CDT procedure are i n the results section. PARTIAL THROMBOPLASTIN Routine 01/22/2006 10:09 R esults for this TIME AM CDT procedure are i n the results section. LUPUS ANTICOAGULANT Routine 01/22/2006 10:09 Resu lts for this PANEL AM CDT procedure are i n the results section. FIBRINOGEN ACTIVITY Routine 01/22/2006 10:09 Resu lts for this AM CDT procedure are i n the results section. FACTOR 9 ASSAY Routine 01/22/2006 10:09 Results f or this AM CDT procedure are i n the results section. FACTOR 8 ASSAY Routine 01/22/2006 10:09 Results f or this AM CDT procedure are i n the results section. FACTOR 7 ASSAY Routine 01/22/2006 10:09 Results f or this AM CDT procedure are i n the results section. FACTOR 5 ASSAY Routine 01/22/2006 10:09 Results f or this AM CDT procedure are i n the results section. FACTOR 2 ASSAY Routine 01/22/2006 10:09 Results f or this AM CDT procedure are i n the results section. FACTOR 12 ASSAY Routine 01/22/2006 10:09 Results for this AM CDT procedure are i n the results section. FACTOR 11 ASSAY Routine 01/22/2006 10:09 Results for this AM CDT procedure are i n the results section. FACTOR 10 ASSAY Routine 01/22/2006 10:09 Results for this AM CDT procedure are i n the results section. COMPREHENSIVE METABOLIC Routine 01/22/2006 10:09 Results for this PANEL AM CDT procedure are i n the results section. ANTITHROMBIN III Routine 01/22/2006 10:09 Results for this AM CDT procedure are i n the results section. HEMATOPATHOLOGY Routine 01/22/2006 12:00 Results for this AM CDT procedure are i n the results section. documented in this encounter Results Antithrombin III (01/22/2006 10:09 AM CDT) P athologist Signature Antithrombin III 101 80 - 120 % MISYS Chromogenic Specimen Anatomical Collection Method Collection Time Receive d Time (Source) Location / / Volume Laterality 01/22/2006 10:09 01/22/2006 AM CDT 10:18 AM CDT Halina Yoder MD LAB - BLOOD ORDERABLES Performing Organization Address City/State/ZIP Code Phon e Number MISYS (ABNORMAL) Comprehensive metabolic panel (01/22/2006 10:09 AM CDT) Patholo gist Method Time Signature Sodium 138 133 - 143 MISYS mmol/L Potassium 3.9 3.4 - 5.3 MISYS mmol/L Chloride 106 98 - 110 [place] mmol/L Carbon Dioxide 22 20 - 32 [place] mmol/L Glucose 86 60 - 110 [place] mg/dL Urea Nitrogen 20 5 - 24 [place]IS[place] mg/dL Creatinine 0.41 0.20 - MISYS 0.70 mg/dL GFR Estimate GFR not mL/min/1. MISYS calculated, 7m2 patient <16 years old. GFR Estimate If GFR not mL/min/1. MISYS Black calculated, 7m2 patient <16 years old. Calcium 9.7 8.7 - MISYS 10.8 mg/dL AST 48 0 - 50 [place]IS[place] U/L Protein Total 8.0 (H) 5.7 - 7.9 MISYS g/dL Anion Gap 11 6 - 17 [place]IS[place] mmol/L Albumin 4.8 (H) 3.3 - 4.6 MIS[place] g/dL ALT 28 0 - 50 [place]IS[place] U/L Alkaline 365 150 - 420 [place] Phosphatase U/L Bilirubin Total 0.5 0.2 - 1.3 [place]IS[place] mg/dL Specimen Anatomical Collection Method Collection Time Receive d Time (Source) Location / / Volume Laterality 01/22/2006 10:09 01/22/2006 AM CDT 10:18 AM CDT Halina Yoder MD LAB - BLOOD ORDERABLES Performing Organization Address City/[facility]/ZIP Code Phon e Number MISYS Factor 10 assay (01/22/2006 10:09 AM CDT) athologist Signature Factor 10 Assay 74 60 - 140 % MISYS Specimen Anatomical Collection Method Collection Time Receive d Time (Source) Location / / Volume Laterality 01/22/2006 10:09 01/22/2006 AM CDT 10:18 AM CDT Halina Yoder MD LAB - BLOOD ORDERABLES Performing Organization Address City/State/ZIP Code Phon e Number MISYS Factor 11 assay (01/22/2006 10:09 AM CDT) athologist Signature Factor 11 Assay 82 60 - 140 % MISYS Specimen Anatomical Collection Method Collection Time Receive d Time (Source) Location / / Volume Laterality 01/22/2006 10:09 01/22/2006 AM CDT 10:18 AM CDT Halina Yoder MD LAB - BLOOD ORDERABLES Performing Organization Address City/State/ZIP Code Phon e Number MISYS (ABNORMAL) Factor 12 assay (01/22/2006 10:09 AM CDT) athologist Signature Factor 12 Assay 36 (L) 60 - 140 % MISYS Specimen Anatomical Collection Method Collection Time Receive d Time (Source) Location / / Volume Laterality 01/22/2006 10:09 01/22/2006 AM CDT 10:18 AM CDT Halina Yoder MD LAB - BLOOD ORDERABLES Performing Organization Address [facility] Code Phon e Number MISYS Factor 2 assay (01/22/2006 10:09 AM CDT) P athologist Signature Factor 2 Assay 80 60 - 140 % MISYS Specimen Anatomical Collection Method Collection Time Receive d Time (Source) Location / / Volume Laterality 01/22/2006 10:09 01/22/2006 AM CDT 10:18 AM CDT Halina Yoder MD LAB - BLOOD ORDERABLES Performing Organization Address [facility] Code Phon e Number MISYS Factor 5 assay (01/22/2006 10:09 AM CDT) P athologist Signature Factor 5 Assay 82 60 - 140 % MISYS Specimen Anatomical Collection Method Collection Time Receive d Time (Source) Location / / Volume Laterality 01/22/2006 10:09 01/22/2006 AM CDT 10:18 AM CDT Halina Yoder MD LAB - BLOOD ORDERABLES Performing Organization Address [facility] Phon e Number MISYS Factor 7 assay (01/22/2006 10:09 AM CDT) P athologist Signature Factor 7 Assay 71 60 - 140 % MISYS Specimen Anatomical Collection Method Collection Time Receive d Time (Source) Location / / Volume Laterality 01/22/2006 10:09 01/22/2006 AM CDT 10:18 AM CDT Halina Yoder MD LAB - BLOOD ORDERABLES Performing Organization Address City/[facility] Code Phon e Number MISYS Factor 8 assay (01/22/2006 10:09 AM CDT) P athologist Signature Factor 8 Assay 121 60 - 140 % MISYS Specimen Anatomical Collection Method Collection Time Receive d Time (Source) Location / / Volume Laterality 01/22/2006 10:09 01/22/2006 AM CDT 10:18 AM CDT Halina Yoder MD LAB - BLOOD ORDERABLES Performing Organization Address City/[facility] Phon e Number MISYS Factor 9 assay (01/22/2006 10:09 AM CDT) P athologist Signature Factor 9 Assay 65 60 - 140 % MISYS Specimen Anatomical Collection Method Collection Time Receive d Time (Source) Location / / Volume Laterality 01/22/2006 10:09 01/22/2006 AM CDT 10:18 AM CDT Halina Yoder MD LAB - BLOOD ORDERABLES Performing Organization Address [facility] Phon e Number MISYS Fibrinogen activity (01/22/2006 10:09 AM CDT) P athologist Signature Fibrinogen 337 200 - 420 MISYS mg/dL Specimen Anatomical Collection Method Collection Time Receive d Time (Source) Location / / Volume Laterality 01/22/2006 10:09 01/22/2006 AM CDT 10:18 AM CDT Halina Yoder MD LAB - BLOOD ORDERABLES Performing Organization Address [facility] Phon e Number MISYS T4 free (01/22/2006 10:09 AM CDT) P athologist Signature T4 Free 1.32 0.70 - 1.85 MISYS ng/dL Specimen Anatomical Collection Method Collection Time Receive d Time (Source) Location / / Volume Laterality 01/22/2006 10:09 01/22/2006 AM CDT 10:19 AM CDT Halina Yoder MD LAB - BLOOD ORDERABLES Performing Organization Address [facility] Phon e Number MISYS INR (01/22/2006 10:09 AM CDT) P athologist Signature INR 1.08 0.86 - 1.14 MISYS Specimen Anatomical Collection Method Collection Time Receive d Time (Source) Location / / Volume Laterality 01/22/2006 10:09 01/22/2006 AM CDT 10:19 AM CDT Halina Yoder MD LAB - BLOOD ORDERABLES Performing Organization Address City/[facility]/ZIP Code Phon e Number MISYS Lupus panel (01/22/2006 10:09 AM CDT) P athologist Signature Lupus Result (Note) MISYS Comment: . APTT'S:. .. ?? Seconds .. . * ? * Reagent.. .. .. .. Stago * ? * Normal... .. 30.1 .. 26.8 * ? * Patient.. .. 36.3 .. 38.1 * ? * 1:2 Mix.. .. N/A .. 31.4 * ? * Reference .. 24-37 .. 22-37 * ? * DILUTE MARK VIPER VENOM TEST: DRVVT Screen Ratio = 1.23 (Normal = <1.2 8) COMMENTS: APTT is prolonged with Organon Teknika, but mixing study shows complete correction. APTT is normal with Aluminum Silicate. ? ?1:2 Mix ??with Aluminum Silicate is not indicated. DRVVT Screen is normal. NEGATIVE TEST; THIS PATIENT DOES NOT HAV E A LUPUS ANTICOAGULANT. 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 Maria Fernanda Posadas M.D. ??[phone] 01-23-06. Specimen Anatomical Collection Method Collection Time Receive d Time (Source) Location / / Volume Laterality 01/22/2006 10:09 01/22/2006 AM CDT 10:19 AM CDT Halina Yoder MD LAB - BLOOD ORDERABLES Performing Organization Address City/State/ZIP Code Phon e Number MISYS Blood smear morphology (01/22/2006 10:09 AM CDT) Patholo gist Method Time Signature Blood Received in MISYS Morphology Special Heme. Smear See Anatomic Path Resulting Specimen Anatomical Collection Method Collection Time Receive d Time (Source) Location / / Volume Laterality 01/22/2006 10:09 01/22/2006 AM CDT 10:19 AM CDT Halina Yoder MD LAB - BLOOD ORDERABLES Performing Organization Address City/State/ZIP Code Phon e Number MISYS Protein C chromogenic (01/22/2006 10:09 AM CDT) athologist Signature Prot C 75 70 - 130 % MISYS Chromogenic Specimen Anatomical Collection Method Collection Time Receive d Time (Source) Location / / Volume Laterality 01/22/2006 10:09 01/22/2006 AM CDT 10:19 AM CDT Halina Yoder MD LAB - BLOOD ORDERABLES Performing Organization Address City/State/[facility] Code Phon e Number MISYS Protein S free (01/22/2006 10:09 AM CDT) athologist Signature Protein S Free 90 70 - 135 % MISYS Specimen Anatomical Collection Method Collection Time Receive d Time (Source) Location / / Volume Laterality 01/22/2006 10:09 01/22/2006 AM CDT 10:19 AM CDT Halina Yoder MD LAB - BLOOD ORDERABLES Performing Organization Address City/[facility]/ZIP Code Phon e Number MISYS Protein S total antigen (01/22/2006 10:09 AM CDT) [facility] Method Time Signature Protein S TEST 75 - 125 MISYS Total VIRGEN CANCELLED, % SEE PROTEIN S FREE Specimen Anatomical Collection Method Collection Time Receive d Time (Source) Location / / Volume Laterality 01/22/2006 10:09 01/22/2006 AM CDT 10:19 AM CDT Halina Yoder MD LAB - BLOOD ORDERABLES Performing Organization Address City/[facility]/ZIP Code Phon e Number MISYS Partial thromboplastin time (01/22/2006 10:09 AM CDT) athologist Signature PTT 37 22 - 37 sec MISYS Specimen Anatomical Collection Method Collection Time Receive d Time (Source) Location / / Volume Laterality 01/22/2006 10:09 01/22/2006 AM CDT 10:19 AM CDT Halina Yoder MD LAB - BLOOD ORDERABLES Performing Organization Address City/[facility]/ZIP Code Phon e Number MISYS Ristocetin cofactor (01/22/2006 10:09 AM CDT) P athologist Signature Ristocetin 113 50 - 175 % MISYS Cofactor Comment: CORRECTED ON 01/24 AT 1015: PRE VIOUSLY REPORTED 101 Specimen Anatomical Collection Method Collection Time Receive d Time (Source) Location / / Volume Laterality 01/22/2006 10:09 01/22/2006 AM CDT 10:19 AM CDT Halina Yoder MD LAB - BLOOD ORDERABLES Performing Organization Address [facility] Phon e Number MISYS TSH (01/22/2006 10:09 AM CDT) athologist Signature TSH 3.37 0.4 - 5.0 MISYS mU/L Specimen Anatomical Collection Method Collection Time Receive d Time (Source) Location / / Volume Laterality 01/22/2006 10:09 01/22/2006 AM CDT 10:19 AM CDT Halina Yoder MD LAB - BLOOD ORDERABLES Performing Organization Address [facility] Code Phon e Number MISYS Thrombin time (01/22/2006 10:09 AM CDT) athologist Signature Thrombin Time 16.6 13.0 - 19.0 MISYS sec Specimen Anatomical Collection Method Collection Time Receive d Time (Source) Location / / Volume Laterality 01/22/2006 10:09 01/22/2006 AM CDT 10:19 AM CDT Halina Yoder MD LAB - BLOOD ORDERABLES Performing Organization Address [facility] Phon e Number MISYS Von Willebrand antigen (01/22/2006 10:09 AM CDT) athologist Signature von Willebrand 122 55 - 160 % MISYS Antigen Specimen Anatomical Collection Method Collection Time Receive d Time (Source) Location / / Volume Laterality 01/22/2006 10:09 01/22/2006 AM CDT 10:19 AM CDT Halina Yoder MD LAB - BLOOD ORDERABLES Performing Organization Address [facility] Phon e Number MISYS Von Willebrand factor multimer (01/22/2006 10:09 AM CDT) athologist Signature Von Willebrand (Note) MISYS Antigen CIEP Comment: VWF:Ag and VWF:RCo levels are normal. Th ere is no laboratory evidence of von Willebrand disease. ??Von Willebr and multimer analysis is not indicated. Maria Fernanda Posadas M.D. ?? [phone] 01-23-06. Test cancelled and credited. Specimen Anatomical Collection Method Collection Time Receive d Time (Source) Location / / Volume Laterality 01/22/2006 10:09 01/22/2006 AM CDT 10:19 AM CDT Halina Yoder MD LAB - BLOOD ORDERABLES Performing Organization Address City/State/ZIP Code Phon e Number MISYS (ABNORMAL) Hemogram differential and platelet (01/22/2006 10:09 AM CDT) athologist Signature MCV 81 70 - 100 fl MISYS MCH 27.3 26.5 - 33.0 MISYS pg MCHC 33.6 32.0 - 36.0 MISYS g/dL RDW 13.1 10.0 - 15.0 MISYS % Comment: Assayed at [facility], [facility] [address] RBC Count 5.70 (H) 3.7 - 5.3 10e12/L MISYS WBC 6.1 5.0 - 14.5 10e9/L MISYS Hemoglobin 15.6 (H) 10.5 - 14.0 g/dL MISYS Hematocrit 46.4 (H) 31.5 - 43.0 % MISYS % Neutrophils 45 (H) 15 - 44 % MISYS % Lymphocytes 42 (L) 45 - 76 % MISYS % Monocytes 10 0 - 10 % MISYS % Eosinophils 2 0 - 6 % MISYS % Basophils 1 0 - 1 % MISYS Absolute Neutrophil 2.9 0.8 - 7.7 10e9/L MIS YS Absolute Lymphocytes 2.5 2.3 - 13.3 10e9/L M ISYS Absolute Monocytes 0.6 0.0 - 1.1 10e9/L MISY S Absolute Eosinophils 0.1 0.0 - 0.7 10e9/L VA SYS Absolute Basophils 0.0 0.0 - 0.2 10e9/L MISY S Diff Method Automated Method MISYS Specimen Anatomical Collection Method Collection Time Receive d Time (Source) Location / / Volume Laterality 01/22/2006 10:09 01/22/2006 AM CDT 10:19 AM CDT Halina Yoder MD LAB - BLOOD ORDERABLES Performing Organization Address [facility] Phon e Number MISYS Platelet count (01/22/2006 10:09 AM CDT) P athologist Signature Platelet Count 381 150 - 450 MISYS 10e9/L Comment: Assayed at [facility], [facility] [address] Specimen Anatomical Collection Method Collection Time Receive d Time (Source) Location / / Volume Laterality 01/22/2006 10:09 01/22/2006 AM CDT 10:24 AM CDT Halina Yoder MD LAB - BLOOD ORDERABLES Performing Organization Address [facility] Code Phon e Number MISYS Hematopathology (01/22/2006 12:00 AM CDT) Component Value Ref Test [facility] Method Time Signature Copath Report CASE: [id number] ^ [facility] Patient Name: JUDE BILLS MR#: [id number] Specimen #: [id number] Collected: 01/22/2006 Received: 01/22/2006 Reported: 01/22/2006 16:29 Ordering Phy(s): HALINA YODER TEST(S): Blood Smear Morphology FINAL DIAGNOSIS: ? Peripheral blood smear: ?Erythrocytosis ? No [place] bodies are seen. 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 ??He is on aspirin, digitalis, and enalapril. ??The reason for the peripheral smear is toevaluate platelet morphology f or [place] bodies. PERIPHERAL BLOOD DATA (Date: January 22) ? Patient Value ?(Reference Ra mcclure 5-9y11m) ? RBC ?5.7 ? x10*12/L ? (3.7-5.3 x 10*12/L) ? Hgb ?15. 6 ? g/dL ? (10.5-14.0 g/dl) ? MCV ?81 ?fL ? (70-100 fl) ? RDW ?13.1 ?% ? (10.0-15.0 %) ? MCHC ?33.6 ? g/dL ?(31.0- 36.0 g/dL) ? WBC ?6.1 ? x10*9/L ? (5.0-14.5 x10* 9/L) ? Plt ? 338 ?x10*9/L ? (150- 450 x10*9/L) Additional blood data: ??INR 1.08; PTT 37s; TT 166s; protein C activity 75; antithrombin activity 101. REPORT: Blood The red bloodcells appear increased in number, normochromic, and normocytic. Poikilocytosis is minimal. Polychromasia is not increased. No [place] bodies are seen on scanning. The platelets appear normal in number and morphology. The leukocytes appear normal in number. DIFFERENTIAL (100 cells): ?(Reference Range >1- 6 years) ? Neutrophils, ? segmented and bands ? 48.0 ? (15-44) ? Lymphocytes ? 39.0 ?(45-76) ? Monocytes ? 11.0 ?(0-10) ? Eosinophils ? 1.0 ? (0-6) ? Basophils ? 1.0 ? (0-1) Occasional reactive lymphocytes are present. Reporting Dry Transfer Man: MARLYS Galarza TESTING LAB LOCATION: [facility], [address] ?? [address] COLLECTION SITE: Client: ??[facility] Location: ??[place] (B) Specimen (Source) Anatomical Collection Method Collection Time Re ceived Time Location / / Volume Laterality 01/22/2006 01/22/2006 4:29 PM CDT Halina Yoder MD LAB - COPATH SPECIAL THAI VAN Performing Organization Address City/State/ZIP Code Phon e Number COPATH documented in this encounter Visit Diagnoses Not on filedocumented in this encounter
--- OUTSIDE RECORDS SUMMARY | 2022-04-10 10:07 | XMS_ITS | Encounter Summary ---
:2000 Author Organization [place] Address [facility]0 [facility] [place] [address] Care Team Providers Name Role Phone Unavailable Primary Care Provider Unavailable Encounter Details Date Type Department Care Team Description 11/20/2006 Results Only [facility] Rudy Juarez MD Hospital Results [address] [place], [place] [address] (Wo rk) Social History Tobacco Use Types [...] Ancillary Procedure Cardiology Cordell Juarez MD [address] [place] [phone] (Wo rk) 07/27/2022 Office Visit Cardiology Cordell Juarez MD [address] [place] [phone] (Wo rk) documented as of this encounter Procedures Procedure Name Priority Date/Time Associated Diagnosis [facility] ECHO Routine 11/20/2006 9:55 AM Results f or this XTHORACICNEHEMIAS CDT procedure are in ANOM,COMPLETE the results section. documented in this encounter Results ECHO XTHORACICNEHEMIAS ANOM,COMPLETE (11/20/2006 9:55 AM CDT) Component Value Ref Test Analysis Performed At [facility] Range Method Time Signature IMAGECAST PEDIATRIC ECHOCARDIOGRAM ?? RA DIOLOGY RESULT [facility] ??Echocardiogram Lab RESULTS ? Age: ??1 ? Wt: ? Ht: ? BSA: ? BP: ? Xcelera ? Bias Binding Folder: ??KB INDICATION: ?? A cardiac ultrasound study based on an exam which included: M-Mode ?2-D ?Doppler ? Color Flow CONCLUSION: ?? Patient status post Fontan procedu re. Ventricular function is qualitatively normal. There is again at most 2+ tricuspid insufficiency. Fontan flows are acceptable. The re was an additional color signal in the left branch pulmonary artery that could represent a residual aorto pulmonary shunt. ?? M-Mode Report ?? 1. ??No ECG is recorded. ?? TWO-D ECHO: Recordings are performed from parasternal, apical, subcostal and suprasternal notch windows. 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 This patient has u ndergone Fontan procedure the IVC baffle is visible. Ventricular func tion is qualitatively normal. The aortic arch appears non-obstructed . Branch pulmonary arteries appear widely patent. ?? DOPPLER REPORT: ?? Color flow and spectral Doppler are performed. ??There is no transmitral flow. ??There is 2+ tricuspid insufficiency. Low velocity continuous flow is observed in the superior vena cava and th e right pulmonary artery. There is some cessation of flow in the lef t pulmonary artery. There is only a very occasional flow rever alexander in the right branch pulmonary artery. The fenestration is never well seen and a gradient was not obtained. ?? Artemio Silva MD-Pager [phone] ?? Gayathri Ayala MD-Pager [phone] ?? Jorge Link MD-Pager [phone] or [phone] Cordell Juarez MD-Pager [phone] ?? Jayson Bailey MD-Pager [phone] Vilma Rucker MD-Pager [phone] Specimen (Source) Anatomical Collection Method Collection Time Re ceived Time Location / / Volume Laterality 11/20/2006 9:55 AM CDT Cordell Juarez MD PROCEDURES Performing Organization Address City/State/ZIP Code Phon e Number RADIOLOGY RESULTS documented in this encounter Visit Diagnoses Not on filedocumented in this encounter
--- OUTSIDE RECORDS SUMMARY | 2022-04-10 10:07 | XMS_ITS | Encounter Summary ---
:2000 Author Organization [place] Address [address] [place] [address] Care Team Providers Name Role Phone Unavailable Primary Care Provider Unavailable Encounter Details Date Type Department Care Team Description 11/20/2006 Historic Results INTERFACED REPORT Interface, Hetal modi [...] Ancillary Procedure Cardiology Cordell Juarez MD [address] [place] [phone] (Wo rk) 07/27/2022 Office Visit Cardiology Cordell Juarez MD [address] [place], [place] [address] [place], [place] [phone] (Wo rk) documented as of this encounter Procedures Procedure Name Priority Date/Time Associated Diagnosis Comme nts EKG 12 LEAD Routine 11/20/2006 9:49 AM Results f or this CDT procedure are i n the results section . documented in this encounter Results EKG 12 LEAD (11/20/2006 9:49 AM CDT) Component Value Ref Range Test Analysis Performed Pathologis t Method Time At Signature Ventricular Rate 69 BPM RADIOLOGY RESULTS Atrial Rate 69 BPM RADIOLOGY RESULTS LA Interval 148 ms RADIOLOGY RESULTS QRS Duration 84 ms RADIOLOGY RESULTS QT 380 ms RADIOLOGY RESULTS QTc 407 ms RADIOLOGY RESULTS P [place] 50 degrees RADIOLOGY RESULTS R AXIS -91 degrees RADIOLOGY RESULTS T [place] 68 degrees RADIOLOGY RESULTS Interpretation * Pediatric ECG Analysis * RADIOLOGY ECG Sinus rhythm with sinus arrhythmia RESULTS Right axis deviation Right ventricular hypertrophy with strain pattern No previous ECGs available Specimen Anatomical Collection Method Collection Time Receive d Time (Source) Location / / Volume Laterality 11/20/2006 9:49 AM 7 CDT 10:55 AM CDT Transcripton Interface ECG ORDERABLES Performing Organization Address City/State/ZIP Code Phon e Number RADIOLOGY RESULTS documented in this encounter Visit Diagnoses Not on filedocumented in this encounter
--- OUTSIDE RECORDS SUMMARY | 2022-04-10 10:07 | XMS_ITS | Encounter Summary ---
:2000 Author Organization [place] Address [facility] [place] [address] Care Team Providers Name Role Phone Unavailable Primary Care Provider Unavailable Encounter Details Date Type Department Care Team Description 04/03/2006 Operative Report Pete Dodd MD (Master [employer]otive Glass Technician) [facility] [address] [place], [place] [address] Social History Tobacco Use Types Packs/Day Years Used Date Smoking Tobacco: Never Comments: none at home Alcohol Use Standard Drinks/Week Comments Not Asked 0 (1 standard drink = 0.6 oz pure alcoho l) Sex Assigned at Date Recorded Male 03/09/2019 1:21 PM CDT documented as of this encounter Progress Notes Jostin Dodd - 04/15/2006 1:39 PM PERIANESTHESIA RN FINAL PREOPERATIVE DIAGNOSIS: Malrotation. POSTOPERATIVE DIAGNOSIS: Malrotation. PROCEDURE: Bossman's procedure for malrotation with inversion appendectomy. STAPH SURGEON: Jostin Dodd MD. RESIDENT SURGEON: Cheri Odell MD. ANESTHESIA: General. PREOPERATIVE NOTE: Pierre is a young male with a congenital cardiac disease and also has a malrotation, now presents for a repair. His parents were apprised of risks, benefits and alternatives to the procedure, they appeared understanding and agreed to proceed. PROCEDURE: With the patient in supine position under general anesthesia, he was prepped and draped in the usual sterile fashion. A supraumbilical transverse incision was created with scalpel. The fascia and muscle layers were divided with electrocautery. Abdomen was entered sharply. Upon entering theabdomen, the Oscar maneuver was performed and the duodenum was mobilized. Hinsdale's bands were taken down with blunt and sharp dissection. The colon was then mobilized and placed in a non-rotational state with the cecum in the left upper quadrant. The mesentery was then broadened along the SMA up to thehead of the pancreas and the small bowel returned to the right hemiabdomen. The mesentery of the appendix was then taken down with electrocautery and inversion appendectomy was accomplished over a lacrimal duct probe. The base of the pancreas was ligated with 2-0 Vicryl and the appendiceal stump was then inverted into the cecum with 3-0 PDS in circumferential fashion. The cecum was then placed in theleft upper quadrant and was irrigated with sterile saline and closed in layers. The fascia reapproxim ated with 2-0 PDS running fashion. The skin was closed with 4-0 Monocryl in a subcuticular fashion. Benzoin and Steri-Strips then applied. All sponge and needle counts were correct at the termination of the operative procedure. Estimated blood loss was less than 5 cc. The patient appeared to tolerate the procedure well. Electronically signed on 04/15/2006 13:38 by JOSTIN DODD MD MT: Name: PIERRE BILLS Account: [id number] : 2000 Procedure Date: 04/03/2006 Document: [id number] cc: Cordell Blackwell MD [facility] Surgery Billing ANESTHESIA RN documented in this encounter Plan of Treatment Upcoming Encounters Date Type Specialty Care Team Description 07/27/2022 Ancillary Procedure Cardiology Cordell Juarez MD [address] [facility] [address] [place] [address] (Wo rk) 07/27/2022 Office Visit Cardiology Cordell Juarez MD [address] [place] [address] (Wo rk) documented as of this encounter Visit Diagnoses Not on filedocumented in this encounter
--- OUTSIDE RECORDS SUMMARY | 2022-04-10 10:07 | XMS_ITS | Encounter Summary ---
:2000 Author Organization [place] Address [address] [place] [address]. [place] [address] Care Team Providers Name Role Phone Unavailable Primary Care Provider Unavailable Encounter Details Date Type Department Care Team Description 01/22/2006 Results Only [facility] Cordell Juarez MD [address] Results [place] [id number] (Wo rk) Social History Tobacco Use Types [...] 07/27/2022 Ancillary Procedure Cardiology Cordell Juarez MD [address] [place] [address] [phone] (Wo rk) 07/27/2022 Office Visit Cardiology Cordell Juarez MD [address] [place] [address] [phone] (Wo rk) documented as of this encounter Procedures Procedure Name Priority Date/Time Associated Diagnosis Comme nts HC UPPER GI & SMALL Routine 01/22/2006 12:11 PM R esults for this INTESTINE CDT procedure are i n the results section. documented in this encounter Results XRAY UPPER GI TRACT + SBS (01/22/2006 12:11 PM CDT) Anatomical Region Laterality Modality Other Specimen (Source) Anatomical Collection Method Collection Time Re ceived Time Location / / Volume Laterality 01/22/2006 12:11 PM CDT Impressions 01/23/2006 6:33 PM CDT Exam: Upper GI and small bowel follow-th rough 01/22/06. Comparison: None. History: Single ventricle. Evaluate for malrotation. Findings: On the crime scene specialist view, there are m idline sternotomy wires. There is a calcified conduit at the right bord er of the heart. 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 The lung bases are clear. The bowel gas pattern is nonobstructive. There is no evidence for free air. The visualized bony structures are normal. An upper GI was performed. The patient d rank approximately 6-7 oz. of barium. On the initial images, the secon d portion of the duodenum was redundant with the third portion coursin g to the left of midline but the fourth portion not ascending to the level of the pylorus. On later images, the position of the duodenum freda nged and it was clear that the duodenum is in the right upper abdomen w ith an abnormal ligament of Treitz. ??The small bowel folds are norm al in appearance. The cecum is also somewhat mobile within the right lo wer quadrant of the abdomen. An esophagram was also performed. Esopha geal motility appears to be normal. The patient did demonstrate one episode of ??gastroesophageal reflux to the mid esophageal level. Impression: 1. Malrotation of the small bowel and so me mobility of the cecum, no obstruction. 2. Gastroesophageal reflux to the mid es ophagus. Fluoroscopy time: 9.7 minutes I have personally reviewed the image and initial interpretation and agree with the findings. Cordell Juarez MD [facility] documented in this encounter Visit Diagnoses Not on filedocumented in this encounter
--- OUTSIDE RECORDS SUMMARY | 2022-04-10 10:08 | XMS_ITS | Encounter Summary ---
:2000 Author Organization [place] Address [facility] [place] [address] Care Team Providers Name Role Phone Unavailable Primary Care Provider Unavailable Reason for Referral Specialty Diagnoses / Procedures Referred By Contact Refer red To Contact Catarina Cottrell MD [facility] [address] [place], [place] [address] Referral ID Status Reason Start Date Expiration Date Visits Requ ested Visits Authorized Encounter Details Date Type Department Care Team Description 03/05/[address] [facility] Catarina Cottrell SIS NOT YET Clinic Meir Pederson MD DEFINED (Primary Dx) [address] [facility] [place], [place] [address] [address] [place], [place] [phone] (Wo rk) Social History Tobacco Use [...] Juarez MD [address] [facility] [place] [address] (Wo rk) 07/27/2022 Office Visit Cardiology Cordell Juarez MD [address] [facility] [address] [place] [address] (Wo rk) documented as of this encounter Procedures Procedure Name Priority Date/Time Associated Diagnosis Comme nts ZZ CONSULT SURGERY Routine 03/05/2005 DIAGNOSIS NOT YET D EFINED documented in this encounter Results CONSULT SURGERY (03/05/2005) Specimen (Source) Anatomical Location Collection Method / Collectio n Time Received Time / Laterality Volume 03/05/2005 Narrative This result has an attachment that is no t available. Catarina Cottrell MD REFERRAL documented in this encounter Visit Diagnoses Diagnosis DIAGNOSIS NOT YET DEFINED - Primary documented in this encounter
--- OUTSIDE RECORDS SUMMARY | 2022-04-10 10:08 | XMS_ITS | Encounter Summary ---
:2000 Author Organization [place] Address [address] [place] [place] [address] Care Team Providers Name Role Phone Unavailable Primary Care Provider Unavailable Encounter Details Date Type Department Care Team Description 09/27/2004 Historic Results [facility]en Juarez MD Cardiology [address] [facility] [address] [place] [address] [place], [place] [address] (Arleen valdes) Social History Tobacco Use Types Packs/Day Years Used Date Smoking Tobacco: Never Assessed Sex Assigned at Date Recorded Male 03/09/2019 1:21 PM CDT documented as of this encounter Plan of Treatment Upcoming Encounters Date Type Specialty Care Team Description 07/27/2022 Ancillary Procedure Cardiology Cordell Juarez MD [facility] [place] [address] [place], [place] [phone] (Arleen rk) 07/27/2022 Office Visit Cardiology Cordell Juarez MD [address] [place], [place] [phone] (Arleen rk) documented as of this encounter Procedures Procedure Name Priority Date/Time Associated Comments Diagnosis HEMOGRAM DIFFERENTIAL Routine 09/27/2004 2:38 PM Results for this AND PLATELET CDT procedure are i n the results section. PLATELET COUNT Routine 09/27/2004 2:38 PM Results for this CDT procedure are i n the results section. COMPREHENSIVE Routine 09/27/2004 2:38 PM Results for this METABOLIC PANEL CDT procedure ar e in the results section. documented in this encounter Results (ABNORMAL) Comprehensive metabolic panel (09/27/2004 2:38 PM CDT) [facility] [employer] Broadcast Method Time Signature Sodium 140 133 - 143 MIS[place] mmol/L Potassium 3.8 3.4 - 5.3 MISYS mmol/L Chloride 103 98 - 110 [place]IS[place] mmol/L Carbon Dioxide 25 20 - 32 MISYS mmol/L Glucose 134 (H) 60 - 110 MISYS mg/dL Urea Nitrogen 23 5 - 24 MISYS mg/dL Creatinine 0.30 0.20 - MISYS 0.70 mg/dL GFR Estimate GFR not mL/min/1. MISYS calculated, 7m2 patient <16 years old. GFR Estimate If GFR not mL/min/1. MISYS Black calculated, 7m2 patient <16 years old. Calcium 9.6 8.7 - MISYS 10.8 mg/dL AST 45 0 - 50 MISYS U/L Protein Total 7.4 5.7 - 7.9 MISYS g/dL Anion Gap 12 6 - 17 MISYS mmol/L Albumin 4.5 3.3 - 4.6 MISYS g/dL ALT 15 0 - 50 MISYS U/L Alkaline 320 150 - 420 MISYS Phosphatase U/L Bilirubin Total 0.5 0.2 - 1.3 MISYS mg/dL Specimen Anatomical Collection Method Collection Time Receive d Time (Source) Location / / Volume Laterality 09/27/2004 2:38 PM 200 5 2:35 CDT PM CDT Cordell Juarez MD LAB - BLOOD ORDERABLES Performing Organization Address City/State/ZIP Code Phon e Number MISYS (ABNORMAL) Hemogram differential and platelet (09/27/2004 2:38 PM CDT) [facility] [employer] Broad[employer] Method Time Signature MCV 79 70 - 100 [place]IS[place] fl MCH 27.4 26.5 - MISYS 33.0 pg MCHC 34.7 32.0 - MISYS 36.0 g/dL RDW 12.0 10.0 - MISYS 15.0 % WBC 9.0 5.0 - MISYS 17.5 10e9/L RBC Count 5.11 3.7 - 5.3 MISYS 10e12/L Hemoglobin 14.0 10.5 - MISYS 14.0 g/dL Hematocrit 40.3 31.5 - MISYS 43.0 % % Neutrophils 69 (H) 15 - 44 % MISYS % Lymphocytes 19 (L) 45 - 76 % MISYS % Monocytes 10 0 - 10 % MISYS % Eosinophils 2 0 - 6 % MISYS % Basophils 0 0 - 1 % MISYS Absolute 6.2 0.8 - 7.7 MISYS Neutrophil 10e9/L Absolute 1.7 (L) 2.3 - MISYS Lymphocytes 13.3 10e9/L Absolute 0.9 0.0 - 1.1 MISYS Monocytes 10e9/L Absolute 0.2 0.0 - 0.7 MISYS Eosinophils 10e9/L Absolute 0.0 0.0 - 0.2 MISYS Basophils 10e9/L Diff Method Automated MISYS Method Specimen Anatomical Collection Method Collection Time Receive d Time (Source) Location / / Volume Laterality 09/27/2004 2:38 PM 5 2:35 CDT PM CDT Cordell Juarez MD LAB - BLOOD ORDERABLES Performing Organization Address City/State/ZIP Code Phon e Number MISYS Platelet count (09/27/2004 2:38 PM CDT) P athologist Signature Platelet Count 251 150 - 450 MIS[place] 10e9/L Specimen Anatomical Collection Method Collection Time Receive d Time (Source) Location / / Volume Laterality 09/27/2004 2:38 PM 5 2:54 CDT PM CDT Cordell Juarez MD LAB - BLOOD ORDERABLES Performing Organization Address City/State/ZIP Code Phon e Number MISYS documented in this encounter Visit Diagnoses Not on filedocumented in this encounter
--- OUTSIDE RECORDS SUMMARY | 2022-04-10 10:08 | XMS_ITS | Encounter Summary ---
:2000 Author Organization [place] Address [address] [place] [address] Care Team Providers Name Role Phone Unavailable Primary Care Provider Unavailable Reason for Visit Reason Comments Imm/Inj Encounter Details Date Type Department Care Team Description 06/07/2005 Allied [facility] Imm/Inj Visit [place] [address] [place] [address] Social History Tobacco Use [...] Cordell Juarez MD [facility] [place] [address] [phone] (Arleen valdes) 07/27/2022 Office Visit Cardiology Cordell Juarez MD [address] [facility] [address] [place], [place] [address] (Arleen valdes) documented as of this encounter Visit Diagnoses Diagnosis Need for prophylactic vaccination and in oculation against influenza - Primary documented in this encounter
--- OUTSIDE RECORDS SUMMARY | 2022-04-10 10:08 | XMS_ITS | Encounter Summary ---
:2000 Author Organization [place] Address [address] [facility] [place] [address] Care Team Providers Name Role Phone Unavailable Primary Care Provider Unavailable Reason for Visit Reason Onset Date Comments Patient Request 05/31/2005 Nasal flu vaccine av ailable? Employee health has extra vaccine Encounter Details Date Type Department Care Team Description 05/31/[address] [facility] Catarina Cottrell Request ([facility] [place] [facility] [place] flu vaccine available? [address] [facility] extra vaccine) [place], [place] [address] [id number] [place] [address] (Wo rk) Social History Tobacco Use Types Packs/Day Years Used Date Smoking Tobacco: Never Comments: none at home Alcohol Use Standard Drinks/Week Comments Not Asked 0 (1 standard drink = 0.6 oz pure alcoho l) Sex Assigned at Date Recorded Male 03/09/2019 1:21 PM CDT documented as of this encounter Miscellaneous Notes Telephone Encounter - Yessi Hernandez - 06/01/2005 1:35 PM CST Mom advised. Yessi Hernandez RN FIC REPORTER Telephone Encounter - Yessi Hernandez - 06/01/2005 1:33 PM CST Paged mom to call clinic. Yessi Hernandez RN FIC REPORTER Telephone Encounter - Catarina Ruiz - 05/31/2005 8:07 PM CST nasal flu vaccine is not available FIC REPORTER Telephone Encounter - Екатерина Lunsford - 05/31/2005 10:35 AM CST Mother calls. Last year,she lived elsewhere and children all were given flu mist vaccine through [facility]. Mom would prefer this be given to her children. Apparently,nasal flu mist was ordered through [facility] services for those who wanted it. Mother says that not many used that option,so there is supply left over. Mom asks if there is anyway we could get some of this supply to vaccinate her son,Jude above;as wellas Gene-11/27/95 and Aliya=00?None of her kids need second vaccination as they had flu mist last year and did well. Mom understands that our clinic only has the flu vaccine shot.Mom asks if getting the Nasal flu would be possible? Please advise.wendy lunsford RN Mom understands PMD will return tomorrow. FIC REPORTER documented in this encounter Plan of Treatment Upcoming Encounters Date Type Specialty Care Team Description 07/27/2022 Ancillary Procedure Cardiology Cordell Juarez MD [address] [place], [place] [phone] (Wo rk) 07/27/2022 Office Visit Cardiology Cordell Juarez MD [address] [place], [place] [address] (Wo rk) documented as of this encounter Visit Diagnoses Not on filedocumented in this encounter
--- OUTSIDE RECORDS SUMMARY | 2022-04-10 10:08 | XMS_ITS | Encounter Summary ---
:2000 Author Organization [place] Address [address] [place] [address] Care Team Providers Name Role Phone Unavailable Primary Care Provider Unavailable Encounter Details Date Type Department Care Team Description 04/25/2005 Telephone [facility] Tara low[place], Catarina Pederson MD [facility] [address] [place] [address] [phone] [place] [address] (Wo rk) Social History Tobacco Use Types Packs/Day Years Used Date Smoking Tobacco: Never Comments: none at home Alcohol Use Standard Drinks/Week Comments Not Asked 0 (1 standard drink = 0.6 oz pure alcoho l) Sex Assigned at Date Recorded Male 03/09/2019 1:21 PM CDT documented as of this encounter Miscellaneous Notes Telephone Encounter - Lorena Pfeiffer - 04/25/2005 10:26 AM CST Talked w/dad , instucted that pt needs to come in for flu injection .Juli Pfeiffer LPN THEATER SPECIALIST documented in this encounter Plan of Treatment Upcoming Encounters Date Type Specialty Care Team Description 07/27/2022 Ancillary Procedure Cardiology Cordell Juarez MD [address] [facility] [address] [place], [place] [address] (Wo rk) 07/27/2022 Office Visit Cardiology Cordell Juarez MD [address] [place], [place] [address] (Wo rk) documented as of this encounter Visit Diagnoses Not on filedocumented in this encounter
--- OUTSIDE RECORDS SUMMARY | 2022-04-10 10:08 | XMS_ITS | Encounter Summary ---
:2000 Author Organization [place] Address [address] [facility] [address] Care Team Providers Name Role Phone Unavailable Primary Care Provider Unavailable Encounter Details Date Type Department Care Team Description 11/07/2005 Historic Results [facility] Alden Juarez MD Cardiology [address] [facility] [address] [place] [address] [place], [place] [address] (Wo rk) Social History Tobacco Use Types [...] Ancillary Procedure Cardiology Cordell Juarez MD [address] [place] [phone] (Wo rk) 07/27/2022 Office Visit Cardiology Cordell Juarez MD [facility] [address] [phone] (Wo rk) documented as of this encounter Procedures Procedure Name Priority Date/Time Associated Comments Diagnosis ALPHA 1 ANTITRYPSIN Routine 11/07/2005 4:10 PM Re sults for this STOOL CDT procedure are i n the results section. COMPREHENSIVE Routine 11/07/2005 2:15 PM Results for this METABOLIC PANEL CDT procedure ar e in the results section. documented in this encounter Results Alpha 1 antitrypsin stool (11/07/2005 4:10 PM CDT) P athologist Signature [id number] 0.16 MISYS p Stool Comment: Reference range: 0.00 to 0.62 Unit: mg/g (Note) The above test was performed at: [facility], [address] [place] [address] ??[id number] ?? [email or web address] Specimen Anatomical Collection Method Collection Time Receive d Time (Source) Location / / Volume Laterality 11/07/2005 4:10 PM 6 8:55 CDT AM CDT Cordell Juarez MD LAB - STOOLS ORDERABLES Performing Organization Address City/State/ZIP Code Phon e Number MISYS (ABNORMAL) Comprehensive metabolic panel (11/07/2005 2:15 PM CDT) [facility] gist Method Time Signature Sodium 140 133 - 143 MISYS mmol/L Potassium 3.4 3.4 - 5.3 MISYS mmol/L Chloride 106 98 - 110 MISYS mmol/L Carbon Dioxide 25 20 - 32 MISYS mmol/L Glucose 89 60 - 110 MISYS mg/dL Urea Nitrogen 15 5 - 24 MISYS mg/dL Creatinine 0.40 0.20 - MISYS 0.70 mg/dL GFR Estimate GFR not mL/min/1. MISYS calculated, 7m2 patient <16 years old. GFR Estimate If GFR not mL/min/1. MISYS Black calculated, 7m2 patient <16 years old. Calcium 8.6 (L) 8.7 - MISYS 10.8 mg/dL AST 44 0 - 50 MISYS U/L Protein Total 7.6 5.7 - 7.9 MISYS g/dL Anion Gap 9 6 - 17 MISYS mmol/L Albumin 4.3 3.3 - 4.6 MISYS g/dL ALT 22 0 - 50 MISYS U/L Alkaline 251 150 - 420 MISYS Phosphatase U/L Bilirubin Total 0.2 0.2 - 1.3 MISYS mg/dL Specimen Anatomical Collection Method Collection Time Receive d Time (Source) Location / / Volume Laterality 11/07/2005 2:15 PM 6 2:02 CDT PM CDT Cordell Juarez MD LAB - BLOOD ORDERABLES Performing Organization Address City/State/ZIP Code Phon e Number MISYS documented in this encounter Visit Diagnoses Not on filedocumented in this encounter
--- OUTSIDE RECORDS SUMMARY | 2022-04-10 10:08 | XMS_ITS | Encounter Summary ---
:2000 Author Organization [place] Address [facility] [place] [address] Care Team Providers Name Role Phone Unavailable Primary Care Provider Unavailable Encounter Details Date Type Department Care Team Description 04/28/2005 Historic Results INTERFACED REPORT Sugey Diaz Social History Tobacco Use Types Packs/Day Years [...] 07/27/2022 Ancillary Procedure Cardiology Cordell Juarez MD [address] [place] [phone] (Wo rk) 07/27/2022 Office Visit Cardiology Cordell Juarez MD [address] [place] [address] [phone] (Wo rk) documented as of this encounter Procedures Procedure Name Priority Date/Time Associated Comments Diagnosis VON WILLEBRAND ANTIGEN Routine 04/28/2005 10:15 R esults for this PM TOOLROOM CHECKER procedure are i n the results section. THROMBIN TIME Routine 04/28/2005 10:15 Results fo r this PM TOOLROOM CHECKER procedure are i n the results section. RISTOCETIN COFACTOR Routine 04/28/2005 10:15 Resu lts for this PM TOOLROOM CHECKER procedure are i n the results section. HEPATIC FUNCTION PANEL STAT 04/28/2005 10:15 R esults for this PM TOOLROOM CHECKER procedure are i n the results section. FACTOR 9 ASSAY STAT 04/28/2005 10:15 Results f or this PM TOOLROOM CHECKER procedure are i n the results section. FACTOR 8 ASSAY STAT 04/28/2005 10:15 Results f or this PM TOOLROOM CHECKER procedure are i n the results section. FACTOR 5 ASSAY STAT 04/28/2005 10:15 Results f or this PM TOOLROOM CHECKER procedure are i n the results section. FACTOR 2 ASSAY STAT 04/28/2005 10:15 Results f or this PM TOOLROOM CHECKER procedure are i n the results section. HEMOGRAM DIFFERENTIAL STAT 04/28/2005 7:53 PM Results for this AND PLATELET TOOLROOM CHECKER procedure are i n the results section. INR STAT 04/28/2005 7:53 PM Results f or this TOOLROOM CHECKER procedure are i n the results section. PARTIAL THROMBOPLASTIN STAT 04/28/2005 7:53 PM Results for this TIME TOOLROOM CHECKER procedure are i n the results section. documented in this encounter Results Factor 2 assay (04/28/2005 10:15 PM TOOLROOM CHECKER) P athologist Signature Factor 2 Assay 104 60 - 140 % MISYS Specimen Anatomical Collection Method Collection Time Receive d Time (Source) Location / / Volume Laterality 04/28/2005 10:15 04/28/2005 PM TOOLROOM CHECKER 10:19 PM TOOLROOM CHECKER Sugey Diaz LAB - BLOOD ORDERABLES Performing Organization Address City/State/ZIP Code Phon e Number MISYS (ABNORMAL) Hepatic panel (04/28/2005 10:15 PM TOOLROOM CHECKER) Analysis Performed At Patho logist Time Signature AST 48 0 - 50 U/L MIS[facility] Protein Total 7.6 5.7 - 7.9 M[facility] g/dL Albumin 4.9 (H) 3.3 - 4.6 [facility] g/dL ALT 39 0 - 50 U/L MISYS Alkaline 288 150 - 420 [facility] Phosphatase U/L Bilirubin 0.0 0.0 - 0.3 [facility] Conjugated mg/dL Bilirubin Delta 0.1 0.0 - 0.4 [facility] mg/dL Bilirubin Total 0.3 0.2 - 1.3 [facility] mg/dL Specimen Anatomical Collection Method Collection Time Receive d Time (Source) Location / / Volume Laterality 04/28/2005 10:15 04/28/2005 PM TOOLROOM CHECKER 10:19 PM TOOLROOM CHECKER Sugey Diaz LAB - BLOOD ORDERABLES Performing Organization Address City/State/ZIP Code Phon e Number MISYS Factor 5 assay (04/28/2005 10:15 PM TOOLROOM CHECKER) P athologist Signature Factor 5 Assay 97 60 - 140 % MIS[facility] Specimen Anatomical Collection Method Collection Time Receive d Time (Source) Location / / Volume Laterality 04/28/2005 10:15 04/28/2005 PM TOOLROOM CHECKER 10:19 PM TOOLROOM CHECKER Sugey Diaz LAB - BLOOD ORDERABLES Performing Organization Address City/[facility]/ZIP Code Phon e Number MISYS Factor 9 assay (04/28/2005 10:15 PM TOOLROOM CHECKER) P athologist Signature Factor 9 Assay 75 60 - 140 % MISYS Specimen Anatomical Collection Method Collection Time Receive d Time (Source) Location / / Volume Laterality 04/28/2005 10:15 04/28/2005 PM TOOLROOM CHECKER 10:19 PM TOOLROOM CHECKER Authorizing Provider Result Elizabeth Diaz LAB - BLOOD ORDERABLES Performing Organization Address City/[facility] Code Phon e Number MISYS Factor 8 assay (04/28/2005 10:15 PM TOOLROOM CHECKER) P athologist Signature Factor 8 Assay 100 60 - 140 % MISYS Specimen Anatomical Collection Method Collection Time Receive d Time (Source) Location / / Volume Laterality 04/28/2005 10:15 04/28/2005 PM TOOLROOM CHECKER 10:19 PM TOOLROOM CHECKER Sugey Diaz LAB - BLOOD ORDERABLES Performing Organization Address City/State/ZIP Code Phon e Number MISYS Thrombin time (04/28/2005 10:15 PM TOOLROOM CHECKER) P athologist Signature Thrombin Time 15.3 13.0 - 19.0 MISYS sec Specimen Anatomical Collection Method Collection Time Receive d Time (Source) Location / / Volume Laterality 04/28/2005 10:15 04/28/2005 PM TOOLROOM CHECKER 10:40 PM TOOLROOM CHECKER Sugey Diaz LAB - BLOOD ORDERABLES Performing Organization Address City/State/ZIP Code Phon e Number MISYS Ristocetin cofactor (04/28/2005 10:15 PM TOOLROOM CHECKER) P athologist Signature Ristocetin 99 60 - 160 % MISYS Cofactor Comment: (Note) VWF:Ag and VWF:RCo levels are normal. Th ere is no laboratory evidence of von Willebrand disease. Maria Fernanda Posadas M.D. ?? [phone] 05/04/2005 Specimen Anatomical Collection Method Collection Time Receive d Time (Source) Location / / Volume Laterality 04/28/2005 10:15 05/03/2005 PM TOOLROOM CHECKER 12:00 PM TOOLROOM CHECKER Sugey Diaz LAB - BLOOD ORDERABLES Performing Organization Address [facility] Phon e Number MISYS Von Willebrand antigen (04/28/2005 10:15 PM TOOLROOM CHECKER) athologist Signature von Willebrand 119 55 - 145 % MISYS Antigen Comment: Analyte Specific Reagents (ASRs) are use d in many laboratory tests necessary for standard medical care and generally do not require FDA approval. ??This test was developed and its performance character istics determined by [facility]. ? ?It has not been cleared or approved by the [place] Food and Drug Administration. Specimen Anatomical Collection Method Collection Time Receive d Time (Source) Location / / Volume Laterality 04/28/2005 10:15 05/03/2005 PM TOOLROOM CHECKER 12:00 PM TOOLROOM CHECKER Sugey Diaz LAB - BLOOD ORDERABLES Performing Organization Address [facility] Phon e Number MISYS (ABNORMAL) Partial thromboplastin time (04/28/2005 7:53 PM TOOLROOM CHECKER) P athologist Signature PTT 39 (H) 22 - 37 sec MISYS Specimen Anatomical Collection Method Collection Time Receive d Time (Source) Location / / Volume Laterality 04/28/2005 7:53 PM 5 7:43 TOOLROOM CHECKER PM TOOLROOM CHECKER Sugey Diaz LAB - BLOOD ORDERABLES Performing Organization Address City/[facility] Phon e Number MISYS (ABNORMAL) Hemogram differential and platelet (04/28/2005 7:53 PM TOOLROOM CHECKER) [facility] gist Method Time Signature MCV 82 70 - 100 MISYS fl MCH 28.2 26.5 - MISYS 33.0 pg MCHC 34.4 32.0 - MISYS 36.0 g/dL RDW 11.7 10.0 - MISYS 15.0 % WBC 9.1 5.0 - MISYS 14.5 10e9/L RBC Count 4.93 3.7 - 5.3 MISYS 10e12/L Hemoglobin 13.9 10.5 - MISYS 14.0 g/dL Hematocrit 40.3 31.5 - MISYS 43.0 % % Neutrophils 58 (H) 15 - 44 % MISYS % Lymphocytes 28 (L) 45 - 76 % MISYS % Monocytes 12 (H) 0 - 10 % MISYS % Eosinophils 2 0 - 6 % MISYS % Basophils 0 0 - 1 % MISYS Platelet Count 289 150 - 450 MISYS 10e9/L Absolute 5.3 0.8 - 7.7 MISYS Neutrophil 10e9/L Absolute 2.5 2.3 - MISYS Lymphocytes 13.3 10e9/L Absolute 1.1 0.0 - 1.1 MISYS Monocytes 10e9/L Absolute 0.2 0.0 - 0.7 MISYS Eosinophils 10e9/L Absolute 0.0 0.0 - 0.2 MISYS Basophils 10e9/L Diff Method Automated MISYS Method Specimen Anatomical Collection Method Collection Time Receive d Time (Source) Location / / Volume Laterality 04/28/2005 7:53 PM 5 7:43 TOOLROOM CHECKER PM TOOLROOM CHECKER Sugey Diaz LAB - BLOOD ORDERABLES Performing Organization Address City/State/ZIP Code Phon e Number MISYS INR (04/28/2005 7:53 PM TOOLROOM CHECKER) P athologist Signature INR 1.06 0.86 - 1.14 MISYS Specimen Anatomical Collection Method Collection Time Receive d Time (Source) Location / / Volume Laterality 04/28/2005 7:53 PM 5 7:43 TOOLROOM CHECKER PM TOOLROOM CHECKER Sugey Daiz LAB - BLOOD ORDERABLES Performing Organization Address City/State/ZIP Code Phon e Number MISYS documented in this encounter Visit Diagnoses Not on filedocumented in this encounter
--- OUTSIDE RECORDS SUMMARY | 2022-04-10 10:08 | XMS_ITS | Encounter Summary ---
:2000 Author Organization [place] Address [address] [facility] [address] Care Team Providers Name Role Phone Unavailable Primary Care Provider Unavailable Encounter Details Date Type Department Care Team Description 04/25/2005 Operative Report Shaji Diane MD (Block Saw Operator) [address] [facility] [address] [place] [address] (Wo rk) Social History Tobacco Use Types Packs/Day Years Used Date Smoking Tobacco: Never Comments: none at home Alcohol Use Standard Drinks/Week Comments Not Asked 0 (1 standard drink = 0.6 oz pure alcoho l) Sex Assigned at Date Recorded Male 03/09/2019 1:21 PM CDT documented as of this encounter Progress Notes Shaji Diane - 04/25/2005 11:59 PM WELLNESS COORDINATOR PREOPERATIVE DIAGNOSES: 1. Phimosis. 2. Single ventricle status post Fontan. POSTOPERATIVE DIAGNOSES: 1. Phimosis. 2. Single ventricle status post Fontan. NAME OF OPERATION: 1. Frenulectomy of penis. 2. Sleeve circumcision. SURGEON: Shaji Diane MD RESIDENT SURGEON: Michael Roberts MD ANESTHESIA: General and local. ESTIMATED BLOOD LOSS: 2 mL. SPECIMENS: Foreskin for disposal. DRAINS: None. COMPLICATIONS: None. OPERATIVE FINDINGS: [id number] phimosis. Adhesions were relieved without incident. 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 Has had more difficulty retracting his foreskin for ( ), and is presenting now for circumcision. Risks and benefits are explained to the patient's mother. Consent was obtained and the questions were answered. He was brought to the operating room and underwent induction of anesthesia per the anesthesia service, had a prep of his genitalia, draped in the usual sterile fashion, had a pudendal nerve block and a ring block placed with 0.25% Marcaine. His phimosis was relieved as well as a frenulectomy performed in a transverse manner with electrocautery. The site for circumcision was marked circumferentially with a marking pen near the edge of his pereira internally and externally. The incisions were then made with the cutting current of the cautery circumferentially and the excess foreskin resected and the sleeve-type manner. The 2 edges of foreskin were then reapproximated with interrupted sutures of #5-0 chromic. Hemostasis confirmed in the operative field and he was washed and dressing of bacitracin applied. He was awoken from anesthesia, taken to recovery in stable condition. All sponge and needle counts were correct x2. SHAJI DIANE MD Dictated by: SHAJI DIANE MD MT: [email or web address] Document: [id number] LCN: [id number] DSC: 04/25/2005 Name: MR#: : Procedure Date: PIERRE BILLS -51 2000 04/25/2005 OPERATIVE REPORT Page 2 of 2 NESS COORDINATOR documented in this encounter Plan of Treatment Upcoming Encounters Date Type Specialty Care Team Description 07/27/2022 Ancillary Procedure Cardiology Cordell Juarez MD [address] [facility] [address] [place] [address] (Wo rk) 07/27/2022 Office Visit Cardiology Cordell Juarez MD [address] [facility] [address] [place] [address] (Wo rk) documented as of this encounter Visit Diagnoses Not on filedocumented in this encounter
--- OUTSIDE RECORDS SUMMARY | 2022-04-10 10:08 | XMS_ITS | Encounter Summary ---
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) Catarina Cottrell MD [facility] [address] [place] [address] [place], [place] [address] [address] [place] [address] Phone: [phone] Referral ID Status Reason Start Date Expiration Date Visits Requ ested Visits Authorized [id number] Closed 08/01/2004 06/16/2005 1 4 ICAL RESIDENT Reason for Visit Reason Comments Suture Removal 3 sutures - back of head Encounter Details Date Type Department Care Team Description [facility]2004 [facility] (Primary Dx); Clinic Meir Pederson MD OPEN WOUND OF SCALP; [address] [facility] ATTEN-DE LEON RG DRESSNG/SUTUR [place] [facility] [place], [place] [address] [address] [place], [place] [phone] (Wo rk) Social History Tobacco Use Types [...] - Inhaled Oxygen Concentration - - Weight 15.9 kg (35 lb) 08/01/2004 2:30 PM SURGICAL RESIDENT Height 99.4 cm (3' 3.13) 08/01/2004 2:30 PM SURGICAL RESIDENT Hkvgzg-rad-Mflgdw Percentile 60.67 % 08/01/2004 2:30 PM SURGICAL RESIDENT Growth Chart: [facility] (Boys, 2-20 Years) Body Mass Index 16.07 08/01/2004 2:30 PM SURGICAL RESIDENT Body Mass Index Percentile 67.90 % 08/01/2004 2:30 PM CS T Growth Chart: [facility] (Boys, 2-20 Years) documented in this encounter Progress Notes Catarina Ruiz - 08/06/2004 5:17 PM CST Jude Bills is a 4 year old male here with mother with concerns regarding suture removal. hit headon coffee table, sutured at [facility] one week ago. NO loc at the time of injury. New patient to clinic. PMH of hypoplastic left heart, s/p fontan. Needs cardioogy follow up in one month and needs new cna ltc. Objective: Ht 3' 3.13 (0.99m) Wt 35 lbs (15.9kg) General: alert, active and cooperative Head: 3 sutures placed right occiput Resp: cta bilateral CV: regular rate and rhythm no murmurs ASSESSMENT: suture removal congential heart disease PLAN: sutures removed without problems referral to cardiology given. ICAL RESIDENT documented in this encounter Nursing Notes 08/01/2004 2:30 PM CST >> NISHANT ZHANG 08/01/2004 2:51 pm Jude Bills presents for suture removal. Jude is accompanied today by his mother, Jaimie. Initial Ht 3' 3.13 (0.99m) Wt 35 lbs (15.9kg) Body Mass Index is 16.07 kg/(m^2). . BP completed using cuff size: NA (Not Taken). Nishant Zhang MA documented in this encounter Plan of Treatment Upcoming Encounters Date Type Specialty Care Team Description 07/27/2022 Ancillary Procedure Cardiology Cordell Juarez MD [id number] [place], [place] [phone] (Wo rk) 07/27/2022 Office Visit Cardiology Cordell Juarez MD [address] [facility] [place], [place] [id number] (Wo rk) documented as of this encounter Procedures Procedure Name Priority Date/Time Associated Diagnosis Comme lei JOE CONSULT CARDIOLOGY Routine 08/10/2009 Other Specified Congenital Anomaly of Heart documented in this encounter Results CONSULT CARDIOLOGY (08/10/2009) Narrative This result has an attachment that is no t available. 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
--- OUTSIDE RECORDS SUMMARY | 2022-04-10 10:08 | XMS_ITS | Encounter Summary ---
:2000 Author Organization [place] Address [facility] access hospital0 [facility] [place] [address] Care Team Providers Name Role Phone Unavailable Primary Care Provider Unavailable Encounter Details Date Type Department Care Team Description 04/28/2005 Emergency room Sugey Moore Social History Tobacco Use Types Packs/Day Years Used Date Smoking Tobacco: Never Comments: none at home Alcohol Use Standard Drinks/Week Comments Not Asked 0 (1 standard drink = 0.6 oz pure alcoho l) Sex Assigned at Date Recorded Male 03/09/2019 1:21 PM CDT documented as of this encounter Progress Notes Interface, Gas Appliance Servicer - 04/28/2005 11:59 PM COMMERCIAL FRONT LOAD OPERATOR PRELIMINARY CHIEF COMPLAINT: Bleeding from circumcision. HISTORY OF PRESENT ILLNESS: Pierre is a 5-year-old [place] male who was circumcised the past Saturday. Since then he continues to bleed and finally parents bring him for evaluation. 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 He is also known to have a double spleen. He did have one spontaneous scalp hematoma. MEDICATIONS: Digoxin and Vasotec. IMMUNIZATIONS: Up-to-date. ALLERGIES: Known to be to captopril. REVIEW OF SYSTEMS: Please see history of present illness and past medical history. GENITOURINARY: Reveals a circumcised male with preputium bleeding mainly on the left side creating blood clots spreading over the patient's pull- ups left thigh. CHEST: Revealing midline scar after open-heart surgery. All other review of systems are unremarkable. FAMILY HISTORY: Unknown. The patient is adopted from [place]. SOCIAL HISTORY: In the household are living mother, father, patient and 3 siblings. There is no smoking and no pets. EPIDEMIOLOGIC HISTORY: The patient attends daycare. There is no recent traveling abroad. PHYSICAL EXAMINATION: VITAL SIGNS: Temperature 98, heart rate 113, respirations 20, oxygen saturation 87% on room air (normal, patient's baseline) and weight is 18.5 kg. GENERAL: Reveals a slender 5-month-old [place] male, cooperating. HEENT: Head is normocephalic. Ears, nose, throat and eyes, no pathological findings. NECK: Supple, no adenopathy or thyromegaly. CHEST: Symmetrical, scar in the midline after multiple after open heart surgery. HEART: Regular sinus rate and rhythm. Systolic murmur grade 2/6. LUNGS: Equal breath sounds, good air exchange. No rales, rhonchi, wheezing or crackles. ABDOMEN: Nopalpable hepatosplenomegaly, masses, tenderness, rebound or guarding. GENITAL: Normal external male genitalia, circumcised. There is bleeding from the preputium freshly circumcised on Saturday. There is a slight swelling and more oozing of the blood on the left side of the preputium from where are spreading blood clots down to the pull-ups and over the left inner thigh. Otherwise, there is no rash, petechia or hematomas. LYMPHATICS: No adenopathy. NEUROLOGIC: Grossly intact. MEDICAL DECISION MAKING PROCESS: The patient did have previous open heart surgeries, but mom statedthat he did receive blood products at that time and as the patient continues to bleed since Saturday the concern is of possibility of Von Willebrand disease or possibly hemophilia. Thus, CBC, differential, PTT, and INR were ordered. Laboratory tests revealed 9100 white cell count, platelets 269,000, hemoglobin 13.9, hematocrit 40.3, neutrophils 58%, lymphocytes 28%, monocytes 12% and eosinophils 2%.Prothrombin time was 10.6 (normal) PTT, however, was elevated 39 (22-37 normal). Once PT and PTT were obtained. Dr. Yoder, Pediatric Hematology-Oncology on-call, was notified, consulted and he recommended to perform clotting factors II, V, VIII and IX levels as well as liver function tests and also to administer Humate 50 units/kg. PEDIATRIC EMERGENCY ROOM COURSE: During the pediatric ER stay, the patient continued to bleed afterHumate-P administration. The circumcision was splashed with sterile normal saline and cleansed from blood clots. Gelfoam was applied with Xeroform and holding tape. Dr. Gleason (pediatric surgeon who performed the circumcision) was consulted and recommended administration of the Gelfoam and dressing of the circumcision. Once dressing was completed the patient was discharged to home. DIAGNOSES: 1. Bleeding from circumcision. 2. Possible von Willebrand disease or possibly and another clotting problem. DISCHARGE INSTRUCTIONS: Apply Gelfoam and Xeroform as instructed. Call Dr. Gleason on 04/29 during the day and consult Dr. Yoder (Pediatric Warehouse Order Puller Oncologist) on phone number . SUGEY MOORE MD MT: TIMA Name: PIERRE BILLS MRN: [id number] Account: [id number] : 2000 Visit Date: 04/28/2005 Document: [id number] ERCIAL FRONT LOAD OPERATOR documented in this encounter Plan of Treatment Upcoming Encounters Date Type Specialty Care Team Description 07/27/2022 Ancillary Procedure Cardiology Cord[facility]arez [facility] [address] [facility] [address] [place] [address] (Wo lucio) 07/27/2022 Office Visit Cardiology Cordell Juarez MD [address] [place] [address] (Arleen valdes) documented as of this encounter Visit Diagnoses Not on filedocumented in this encounter
--- OUTSIDE RECORDS SUMMARY | 2022-04-10 10:08 | XMS_ITS | Encounter Summary ---
:2000 Author Organization [place] Address [facility] [place] [address] Care Team Providers Name Role Phone Unavailable Primary Care Provider Unavailable Reason for Referral Office Workup No CT/MRI (Routine) - Closed Specialty Diagnoses / Procedures Referred By Contact Refer red To Contact Diagnoses Routine or ritual circumcision Catarina Cottrell MD [facility] PEDIATRIC [facility] [address] [place] [address] [address] [place] [address] 1745 [phone] Phone: [phone] Referral ID Status Reason Start Date Expiration Date Visits Requ ested Visits Authorized [id number] Closed 01/03/2005 06/16/2005 1 3 Reason for Visit Reason Comments Physical Encounter Details Date Type Department Care Team Description 01/03/2005 Office Visit [facility] Catarina Kathleen CHILD HEALTH EXAM (Primary Dx); Clinic Meir Pederson MD CONGEN HEART ANOMALY NEC; [address] [facility] ROUTINE CIRCUMCISION [facility] [place], [place] [address] [address] [place], [place] [phone] (Wo rk) Social History Tobacco Use Types Packs/Day Years Used Date Smoking Tobacco: Never Comments: none at home Alcohol Use Standard Drinks/Week Comments Not Asked 0 (1 standard drink = 0.6 oz pure alcoho l) Sex Assigned at Date Recorded Male 03/09/2019 1:21 PM CDT documented as of this encounter Last Filed Vital Signs Vital Sign Reading Time Taken Comments Blood Pressure 94/58 01/03/2005 6:00 PM CDT Pulse 88 01/03/2005 6:00 PM CDT Temperature 36.8 ??C (98.2 ??F) 01/03/2005 6:00 PM CDT Respiratory Rate - - Oxygen Saturation - - Inhaled Oxygen Concentration - - Weight 16.3 kg (36 lb) 01/03/2005 6:00 PM CDT Height 102.9 cm (3' 4.5) 01/03/2005 6:00 PM CDT Ibguei-sma-Tmpcny Percentile 44.99 % 01/03/2005 6:00 PM CDT Growth Chart: CDC (Boys, 2-20 Years) Body Mass Index 15.43 01/03/2005 6:00 PM CDT Body Mass Index Percentile 49.83 % 01/03/2005 6:00 PM CD T Growth Chart: CDC (Boys, 2-20 Years) documented in this encounter Progress Catarina Reid - 01/03/2005 6:30 PM CDT Jude Bills is an 4 year old male here for a routine health maintenance visit, accompanied by his mother and sister. QUESTIONS/CONCERNS: None FAMILY/ SOCIAL HISTORY: Child lives with: mother, father and sister care connector: Home with family member: mother Recent family changes/social stressors: recent move Family History: No changes since last physical and Jude is adopted Language(s) spoken at home: Guatemalan ENVIRONMENTAL RISK ASSESSMENT: Is your child around anyone who smokes? NO Car seat/ booster seat? YES Bike/sport helmet? YES DEVELOPMENTAL/Behavioral Screening form: Form given. VISION: seen by ophtho HEARING: no problems REQUIRED VITAL SIGNS COMPLETED: BP 94/58 Pulse 88 Temp (Src) 98.2 (Oral) Ht 3' 4.5 (1.03m) Wt 36 lbs (16.3kg) 11.51% of growth percentile based on eyykwqg-rcc-ghn. 18.30% of growth percentile based on yxoghm-wwi-aze. 49.88% of growth percentile based on BMI-for-age. HEALTH HISTORY SINCE LAST VISIT: No surgery, major illness or injury since last physical exam Previous Medical History: HYPOPLASTIC LEFT HEART SYND Review of patient's past surgical history indicates: REPR BY MODIFIED FONTAN Comment: fenestrated fontan There is no immunization history on file for this patient. ALLERGIES: Captopril Comment: Per Mom, makes him very hyper, drug used for cardiac problem (has had 3 open heart surgeries. [place] DAILY ACTIVITIES: NUTRITION: good appetite, eats variety of foods and dairy/ calcium: whole milk SLEEP: No concerns, sleeps well through night ELIMINATION: Normal bowel movements, Normal urination, Toilet trained and Starting to toilet train EXERCISE/ RECREATION: Age appropriate activities TV/ MEDIA: 0-2 hrs/day DEVELOPMENT: Screening tool used, reviewed with parent/ guardian: PDQ- Liu: passed, will be doing preschool this year, some delays in learning and concerns about ADHD VISION: For details see above, normal HEARING: For details see above, normal ROS: Review of systems negative for constitutional, HEENT, respiratory, cardiovascular, gastrointestinal,genitourinary, endocrine, neurological, skin, and hematologic issues, other than as above. EXAM: BP 94/58 Pulse 88 Temp (Src) 98.2 (Oral) Ht 3' 4.5 (1.03m) Wt 36 lbs (16.3kg) Exam: GENERAL: Alert, vigorous, in no acute distress. SKIN: Skin is clear of rashes HEAD: The head is normocephalic. EYES: The conjunctivae and cornea normal. Corneal light reflex symmetric. PERRLA. No abnormalities noted on funduscopic exam. EARS: The external auditory canals are clear and the tympanic membranes are normal. NOSE: Clear of drainage. Turbinates normal size and color. THROAT: The throat is clear. No tonsilar hypertrophy. MOUTH: Normal mouth. No obvious dental caries. NECK: The neck is supple and thyroid is non-palpable. LYMPH NODES: There are no palpably enlarged lymph nodes. LUNGS: The lung stratton are clear to auscultation. HEART: The precordium is quiet. Regular rate and rhythm without murmur. S1 and S2 are normal. The femoral pulses are normal. ABDOMEN: . Abdomen is soft. No masses. No hepatosplenomegally. The bowel sounds are normal. GENITALIA: Kg stage I with normal appearing genitalia. No inguinal hernia are present. EXTREMITIES: FROM all joints. EXTREMITIES: clubbing of digits NEUROLOGIC: Normal tone throughout. Normal reflexes for age ANTICIPATORY GUIDANCE: The following topics were discussed: SOCIAL/ FAMILY: Family/ Peer activities Positive discipline Limit / supervise TV-media Kindergarten readiness Outdoor activity/ physical play NUTRITION: Healthy food choices Calcium/ Iron sources HEALTH/ SAFETY: Dental care Sleep issues Street crossing Know name and address ASSESSMENT: Well Child with normal growth & development Patient Active Problem List: HYPOPLASTIC LEFT HEART SYND[746.7] - follow up with cardiology as scheduled. Attention problems- will have another IEP at school this year, if continued concerns, rtc. mom would also like to have Jude circumcised, referred to urology for eval PLAN: Immunizations: Reviewed, see orders in EpicCare. See other orders in EpicCare. Referrals/Ongoing Specialty care: No Dental visit recommended: YES Literature: Age specific RTC: 5 y RHM visit documented in this encounter Nursing Notes 01/03/2005 6:00 PM CDT >> ADAN VAUGHAN 01/03/2005 6:19 pm Jude is an 4 year old male here for a routine health maintenance visit, accompanied by his Parent(s)and mother. There are concerns about he is in special education.ADAN VAUGHAN LPN .. No changes in family history since last physical. No recent social changes/stressors. Recent changes/stressors include moved to a new home, mom is .ADAN VAUGHAN LPN [place] Prescreen: Form not completed at time roomed. 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
--- OUTSIDE RECORDS SUMMARY | 2022-04-10 10:08 | XMS_ITS | Encounter Summary ---
:2000 Author Organization [place] Address [facility] [place] [address] Care Team Providers Name Role Phone Unavailable Primary Care Provider Unavailable Encounter Details Date Type Department Care Team Description 07/25/2004 Historic Magnetic Testing Technician INTERFACED REPORT Camila Moore Social History Tobacco Use Types Packs/Day Years Used Date Smoking Tobacco: Never Assessed Sex Assigned at Date Recorded Male 03/09/2019 1:21 PM CDT documented as of this encounter Progress Notes Interface, Magnetic Testing Technician - 05/23/2011 4:38 AM WATCH ASSEMBLER : [birth year] CHIEF COMPLAINT: Head laceration. HISTORY OF PRESENT ILLNESS: The patient is a 4-year-old [place] male who fell backwards at home, hit his head on the coffee table, sustained a laceration over the scalp in the occipital area. He did not have loss of consciousness, seizures or vomiting, and the parents bring him in for evaluation. PAST MEDICAL HISTORY: Significant for hyperplastic left ventricle, transposition of great arteries, bilateral superior vena cava syndrome, and eczema, and three open heart surgeries. MEDICATIONS: Aspirin 81 mg once a day, Digoxin 0.2 cc twice a day, and Vasotec. ALLERGIES: NKDA. IMMUNIZATIONS: Up to date. REVIEW OF SYSTEMS: Reveals in the occipital area more on the right side, a laceration which is running diagonally, approximately 1 cm long, 4 mm deep, and 3 mm wide. Otherwise the review of systems is significant for multiple scars over the chest and abdomen after the surgeries. FAMILY HISTORY: Unknown. SOCIAL HISTORY: In the household lives mother, father, patient and two siblings. There is no smoking. They have three dogs. EPIDEMIOLOGIC HISTORY: The patient attends school for [employer] and there has been no recent traveling. PHYSICAL EXAMINATION: HEENT; head is normocephalic. Laceration as above diagonally in the right occipital area approximately 1 cm long, approximately 4 mm deep and approximately 3 mm wide, slightly oozing blood. Eyes; pupils are equal, reactive to light. Sclera and conjunctiva are clear. Nostrils are clear and patent. Oral cavity; mucous membranes are moist and clean. Ears have intact tympanic membranes bilaterally. Neck is supple, no adenopathy or thyromegaly. Chest is symmetrical. Heart is regular sinus rate and rhythm, small opening snap at the left lower sternal border, but no murmur is appreciated. Lungs are clear to auscultation. No rales, rhonchi, wheezing or crackles. Abdomen is soft, no hepatosplenomegaly, masses, tenderness, rebound, or guarding. Genitals; normal external male genitalia. Testes are descended. Skin has a midline vertical scar on the chest and several scars scattered over the chest and abdomen, but no rash, petechiae, hematoma. Lymphatics; no adenopathy. Neurological examination is grossly intact. PEDIATRIC EMERGENCY DEPARTMENT COURSE: LET was applied on the scalp and after sufficient anesthesia was obtained, the patient's wound was irrigated with normal saline approximately 100 cc, then washed with Hibiclens, irrigated with 100 cc of normal saline again and the wound was closed with three stitches of 5-0 Ethilon. Bacitracin and pressure dressing were applied with an Jam wrap, and the patient was subsequently discharged to home. DISCHARGE DIAGNOSIS: Laceration to the scalp, closed head trauma. DISCHARGE INSTRUCTIONS: Keep the dressing on for 24 hours, then may wash scalp with baby shampoo. Stitches should be taken out in seven days, and follow head injury instructions. Follow up with primary physician on 08-01-04. [id number] _ KAILEE MOORE MD [place]: Document: [id number] CC: KAILEE MOORE MD [place], [place] Name: MR#: PIERRE BILLS -51 EMERGENCY ROOM ENCOUNTER Page 2 of 2 LCN: RONN DSC: 07/25/2004 [place], [place] Name: MR#: PIERRE BILLS [id number] : Admit Date: Account #: 2000 07/25/2004 [id number] Doctor: KAILEE MOORE MD EMERGENCY ROOM ENCOUNTER Page 1 of 2 H ASSEMBLER documented in this encounter Plan of Treatment Upcoming Encounters Date Type Specialty Care Team Description 07/27/2022 Ancillary Procedure Cardiology Cordell Juarez MD [address] [place] [address] (Wo rk) 07/27/2022 Office Visit Cardiology Cordell Juarez MD [address] [place] [address] (Wo rk) documented as of this encounter Visit Diagnoses Not on filedocumented in this encounter
--- OUTSIDE RECORDS SUMMARY | 2022-04-10 10:08 | XMS_ITS | Encounter Summary ---
:2000 Author Organization [place] Address [address] [place] [address] Care Team Providers Name Role Phone Unavailable Primary Care Provider Unavailable Reason for Visit Reason Comments Ear Problem Encounter Details Date Type Department Care Team Description 09/21/2004 Office Visit [facility] Randy Hernandez, ACU TE URI NOS Clinic Meir DUPREE (Primary Dx) [address] [place] [phone] (Wo rk) Social History Tobacco Use Types Packs/Day Years Used Date Smoking Tobacco: Never Assessed Sex Assigned at Date Recorded Male 03/09/2019 1:21 PM CDT documented as of this encounter Last Filed Vital Signs Vital Sign Reading Time Taken Comments Blood Pressure - - Pulse - - Temperature 36.4 ??C (97.5 ??F) 09/21/2004 4:15 PM CDT Respiratory Rate - - Oxygen Saturation - - Inhaled Oxygen Concentration - - Weight 17.2 kg (38 lb) 09/21/2004 4:15 PM CDT Height - - Body Mass Index - - documented in this encounter Progress Notes Randy Hernandez - 09/21/2004 4:59 PM CDT ear pain starting last night. bilateral. flushed and low grade fever. minimal congestion. history offontan. Jude is here today for symptoms of 1 day duration. Main symptom(s) as described above. Fever tactilefever only. Associated symptoms include no other obvious symptoms. Pertinent negatives include shortness of breath, wheezing, or lethargy.. activity level good. Physical Exam: 4 year old well developed, well nourished male in no apparent distress. Tympanic membranes with good landmarks bilaterally. Normal color. Conjunctiva without erythema or mattering. Nares without erythema or drainage. Throat without erythema or exudate. No tonsilar hypertrophy. No lymphadenopathy Lungs clear to auscultation. Assessment: Early URI and eustachian tube dysfunction Plan: Symptomatic treatment reviewed. Follow-up in clinic if no improvment 24-48 hours. call if any worsening of fevers, activity level. documented in this encounter Nursing Notes 09/21/2004 4:15 PM CDT >> BARRIE CABRERA 09/21/2004 4:31 pm Jude Bills presents for pain in both ears and fever. Mom states that school nurse stated that shesaw fluid in both ears and had temp of 99. Initial Temp (Src) 97.5 (Axillary) Wt 38 lbs (17.2kg) Estimated Body Mass Index is 17.45 kg/(m^2) as calculated from: Height of 3' 3.13 (0.994m) as of 08/01/04 Weight of 38 lbs (17.237 kg) as of this encounter . BP completed using cuff size: NA (Not Taken). Kathie Cabrera LPN documented in this encounter Plan of Treatment Upcoming Encounters Date Type Specialty Care Team Description 07/27/2022 Ancillary Procedure Cardiology Cordell Juarez MD [address] [facility] [address] [place], [place] [address] (Wo rk) 07/27/2022 Office Visit Cardiology Cordell Juarez MD [address] [facility] [address] [place] [address] (Wo rk) documented as of this encounter Visit Diagnoses Diagnosis Acute upper respiratory infections of un specified site - Primary documented in this encounter
--- OUTSIDE RECORDS SUMMARY | 2022-04-10 10:08 | XMS_ITS | Encounter Summary ---
:2000 Author Organization [place] Address [address] [place] [address]. [place] [address] Care Team Providers Name Role Phone Unavailable Primary Care Provider Unavailable Encounter Details Date Type Department Care Team Description 11/07/2005 Results Only [facility] Cordell Juarez MD [address] Results [place] [id number] (Wo rk) Social History Tobacco Use Types [...] Ancillary Procedure Cardiology Cordell Juarez MD [address] [place] [phone] (Wo rk) 07/27/2022 Office Visit Cardiology Cordell Juarez MD [address] [place] [phone] (Wo rk) documented as of this encounter Procedures Procedure Name Priority Date/Time Associated Diagnosis Comme nts HC DOPPLER ECHO Routine 11/07/2005 7:27 AM Result s for this COLOR FLOW VELOCITY CDT procedur e are in MAP the results section. documented in this encounter Results DOPPLER COLOR FLOW VELOCITY MAP (11/07/2005 7:27 AM CDT) Anatomical Region Laterality Modality Other Specimen (Source) Anatomical Collection Method Collection Time Re ceived Time Location / / Volume Laterality 11/07/2005 7:27 AM CDT Impressions 11/13/2005 1:43 PM CDT PEDIATRIC ECHOCARDIOGRAM ?? [facility] ? ?Echocardiogram Lab ? Age: ??1 ? W t: ? Ht: ? BSA: ? BP: ? Xcelera ? Inspector Materials And Processes: ??KB INDICATION: ?? A cardiac ultrasound study based on an e xam which included: M-Mode ?2-D ?Doppler ? Color Flow CONCLUSION: ?? Fenestrated Fo ntan. Ventricular contractility is qualitatively normal. M ild tricuspid insufficiency. Low velocity continuous flow is present in the superior vena cava and right pulmonary artery. The fenestration has a mean gradient of 4 mmHg. ?? M-Mode Report ?? 1. ??No ECG is recorded. ?? TWO-D ECHO: Recordings are performed from parasterna l, apical, subcostal and suprasternal notch windows. There is a l arge ventricular septal defect, with a hypoplastic left ventricl e. The patient has undergone Fontan procedure. Ventricular contractil ity is qualitatively normal. ?? DOPPLER REPORT: ?? Color flow and spectral Doppler are perf ormed. ??There is no mitral regurgitation. ??There is mild (1-2+) tr icuspid insufficiency. Low velocity continuous flow is seen in the superior vena cava and right pulmonary artery. The flow in the left p ulmonary artery was not able to be evaluated on this study. There is right to left atrial level shunt across a fenestration with color j et diameter of 4 mm and a mean gradient of 4 mmHg. ?? Artemio Silva MD-Pager [phone] ?? Gayathri Ayala MD-Pager [phone] ?? Jorge Link MD-Pager [phone] or Cordell Juarez MD-Pager [phone] ?? Jayson Bailey MD-Pager [phone] Aga Rucker MD-Pager Cordell Juarez MD SPECIAL IMAGING STUDIES documented in this encounter Visit Diagnoses Not on filedocumented in this encounter
--- OUTSIDE RECORDS SUMMARY | 2022-04-10 10:20 | XMS_ITS | Encounter Summary ---
:2000 Author Organization [place] Address [address] [facility] 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) Chest pain, unspecified type Single ventricle with heterotaxia syndrome Cordell Juarez MD Procedures Cardiopulmonary Stress Test - Adult [address] [facility] [place], [place] [address] Referral ID Status Reason Start Date Expiration Date Visits Requ ested Visits Authorized [id number] Closed 02/06/2022 02/06/2023 1 1 Reason for Visit CV Testing (Routine) - Closed Specialty Diagnoses / Procedures Referred By Contact Refer red To Contact Diagnoses 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) Chest pain, unspecified type Single ventricle with heterotaxia syndrome Cordell Juarez MD Procedures Cardiopulmonary Stress Test - Adult [address] [place], [place] [address] Referral ID Status Reason Start Date Expiration Date Visits Requ ested Visits Authorized [id number] Closed 02/06/2022 02/06/2023 1 1 Encounter Details Date Type Department Care Team Description 04/03/2022 Hospital Encounter [facility] Cordell Juarez , 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; Imani D-TGA (dextro-transposition of great art eries); [facility] [address] [place] pain, unspecified type; [facility] Single ventricle with heterotaxia syndro me [address] [place] [address] [phone] Social History Tobacco Use Types Packs/Day Years [...] 07/27/2022 Ancillary Procedure Cardiology Cordell Juarez MD [address] [address] (Wo rk) 07/27/2022 Office Visit Cardiology Cordell Juarez MD [address] [place], [place] [id number] (Wo rk) documented as of this encounter [...] VO2MAX 42.4 Max 29,583 CARPULSTRPH1 3 mins [id number] 0 sec CARPULSTRPH1 87 bpm CARPULBPPH1 133/83 mmHg CARPULSTRPH1 95 % SpO2 CARPULSTRPH2 6 mins [id number] 0 sec CARPULSTRPH2 112 bpm CARPULBPPH2 143/77 mmHg CARPULSTRPH2 93 % SpO2 CARPULSTRPH3 9 mins [id number] 0 sec CARPULSTRPH3 130 bpm CARPULBPPH3 161/82 mmHg CARPULSTRPH3 91 % SpO2 CARPULSTRPH4 12 mins [id number] 0 sec CARPULSTRPH4 167 bpm CARPULBPPH4 171/72 mmHg CARPULSTRPH4 91 % SpO2 CARPULSTRPH5 13 mins [id number] 0 sec CARPULSTRPH5 173 bpm CARPULSTRPH5 90 % SpO2 CARPULSTRPB1 1 mins [id number] 0 sec CARPULSTRPHB1 154 bpm CARPULBPPHB1 110/61 mmHg CARPULSTRPHB1 90 % SpO2 CARPULSTRPHB2 3 mins [id number] 0 sec CARPULSTRPHB2 102 bpm CARPULBPPHB2 159/108 mmHg CARPULSTRPHB2 93 % SpO2 CARPULSTRPHB3 5 mins [id number] 0 sec CARPULSTRPHB3 108 bpm CARPULBPPHB3 139/98 mmHg CARPULSTRPHB3 92 % SpO2 Max 31.92 ml/kg/m in Predicted 42.40 ml/kg/m in Percent 75 % RER 1.12 VE/VCO2 [place] 28.33 CARPULANEROBICTHRES 31.20 ml/kg/m in CARPULANAEROBICTHRESPERDICTED 74.0 [...] documented as of this encounter Care Teams Balling Machine Operator Relationship Specialty Start Date End Date Magda Winchester, PCP - General Family Medicine Magnus Zayas, Assigned PCP 11/20/[address] [place] [address] [address] [place] [address] documented as of this encounter
--- OUTSIDE RECORDS SUMMARY | 2022-04-10 10:20 | XMS_ITS | Clinical Summary ---
:2000 Author Organization [facility] [place] [address] Care Team Providers Name Role Phone Cordell Juarez MD Unavailable [facility] Primary Care Provider Unavailable Allergies No known [...] tablet daily. Cardiology fills Dr. Cordell Juarez [facility] digoxin (LANOXIN) 250 Take 1 [...] heart syndrome 07/23/2014 Overview: Dr. Cordell Juarez, actuarial manager A [facility] Heterotaxy Encounters Date Type Specialty Care Team Description 02/14/2022 Telemedicine Manju Grimm EQUIPMENT MANAGER Zia led Appointment 01/11/2022 Telemedicine Catarina Zacarias PA [facility] (No vitals taken ) 01/09/2022 Travel from [...] ss Type Group PREFERRED ONE PREFERRED ONE [id number] 2021-Prese [address] [address] [place] [address] [facility] [email or web address] 2020-Presen [address] [address] [place] [address] Bear Bills Personal/Family Father 1968 [phone] (Home) [place] [address] Care Teams Sausage Stuffer Relationship Specialty Start Date End Date Ana Soria PCP - General 05/20/17 Cordell Juarez MD Cardiology Cardiology - Pediatric 12/07/15
--- OUTSIDE RECORDS SUMMARY | 2022-04-10 10:20 | XMS_ITS | Encounter Summary ---
:2000 Author Organization [place] Address [address] [place] [address] Care Team Providers Name Role Phone Magnus Zayas DO Unavailable [phone] Magda Winchester MD Primary Care Provider [...] Procedure Cardiology Cordell Juarez MD [address] [facility] [address] [place], [place] [address] (Wo rk) 07/27/2022 Office Visit Cardiology Cordell Juarez MD [address] [place], [place] [address] (Wo rk) documented as of this encounter Visit Diagnoses Not on filedocumented in this encounter Additional Health Concerns Assessment Noted Time PHQ-9 Depression Total Score: 10 04/01/2019 9:14 AM CD T documented as of this encounter Care Teams General Teller Relationship Specialty Start Date End Date Magda Winchester, PCP - General Family Medicine Magnus Zayas, DO Assigned PCP 11/20/[address] [place] [address] [address] [place], [place] [address] documented as of this encounter
--- OUTSIDE RECORDS SUMMARY | 2022-04-10 10:20 | XMS_ITS | Encounter Summary ---
:2000 Author Organization [place] Address [facility]0 [facility] [place] [address] Care Team Providers Name Role Phone Magnus Zayas DO Unavailable [phone] Magda Winchester MD Primary Care Provider Encounter Details Date Type Department Care Team Description 02/07/2022 Telephone [facility] LarryCordell blum MD Specialty Clinic [address] [address] [address] [facility] [place] [address] 372 [place] [address] [phone] Social History Tobacco Use Types Packs/Day Years [...] Ancillary Procedure Cardiology Cordell Juarez MD 2450 [facility] [place] [address] (Wo rk) 07/27/2022 Office Visit Cardiology Cordell Juarez MD 2450 [facility] [place], [place] [address] (Wo rk) documented as of this encounter Visit Diagnoses Not on filedocumented in this encounter Additional Health Concerns Assessment Noted Time PHQ-9 Depression Total Score: 10 04/01/2019 9:14 AM CD T documented as of this encounter Care Teams Print Support Specialist Relationship Specialty Start Date End Date Magda Winchester, PCP - General Family Medicine Magnus Zayas, DO Assigned PCP 11/20/[address] [place] [address] 284 [place], [place] [address] documented as of this encounter
--- OUTSIDE RECORDS SUMMARY | 2022-04-10 10:20 | XMS_ITS | Clinical Summary ---
:2000 Author Organization [place] Address [facility] [place] [address] Care Team Providers Name Role Phone Magnus Zayas DO Unavailable [phone] Magda Winchester MD Primary Care Provider Allergies [...] Fortino now with Fenestrated Fontan Done at [place] Congenital anomaly of fixation of intestine Overview: [...] Telephone Pediatric Cardiology Cordell Juarez Prior A [facility] Aldo Barajas MD Medication (Sildenafil - n [...] Ancillary Procedure Cardiology Cordell Juarez MD [address] [place], [place] [address] (Wo rk) 07/27/2022 Office Visit Cardiology Cordell Juarez MD [address] [place], [place] [address] (Wo rk) Health Maintenance Due Date Last [...] VO2MAX 42.4 Max 29,583 CARPULSTRPH1 3 mins [id number] 0 sec CARPULSTRPH1 87 bpm CARPULBPPH1 133/83 mmHg CARPULSTRPH1 95 % SpO2 CARPULSTRPH2 6 mins [id number] 0 sec CARPULSTRPH2 112 bpm CARPULBPPH2 143/77 mmHg CARPULSTRPH2 93 % SpO2 CARPULSTRPH3 9 mins [id number] 0 sec CARPULSTRPH3 130 bpm CARPULBPPH3 161/82 mmHg CARPULSTRPH3 91 % SpO2 CARPULSTRPH4 12 mins [id number] 0 sec CARPULSTRPH4 167 bpm CARPULBPPH4 171/72 mmHg CARPULSTRPH4 91 % SpO2 CARPULSTRPH5 13 mins [id number] 0 sec CARPULSTRPH5 173 bpm CARPULSTRPH5 90 % SpO2 CARPULSTRPB1 1 mins [id number] 0 sec CARPULSTRPHB1 154 bpm CARPULBPPHB1 110/61 mmHg CARPULSTRPHB1 90 % SpO2 CARPULSTRPHB2 3 mins [id number] 0 sec CARPULSTRPHB2 102 bpm CARPULBPPHB2 159/108 mmHg CARPULSTRPHB2 93 % SpO2 CARPULSTRPHB3 5 mins [id number] 0 sec CARPULSTRPHB3 108 bpm CARPULBPPHB3 139/98 mmHg CARPULSTRPHB3 92 % SpO2 Max 31.92 ml/kg/m in Predicted 42.40 ml/kg/m in Percent 75 % RER 1.12 VE/VCO2 [place] 28.33 CARPULANEROBICTHRES 31.20 ml/kg/m in CARPULANAEROBICTHRESPERDICTED 74.0 [...] Addre ss Type Group [facility] [id number] 2020-Present [address] [address] [place] [address] Jude Bills Personal/Family Self [address] (Home) [place] [address] Jude Bills Behavioral Self [address] ([address]) [place] [address] Advance Directives For more information, please contact: [phone] Latest Code Status on File Code Status [...] or legal decision maker available Care Teams Tint Layer Relationship Specialty Start Date End Date Magda Winchester, PCP - General Family Medicine Magnus Zayas, Assigned PCP 11/20/[address] [place] [address]
--- OUTSIDE RECORDS SUMMARY | 2022-04-10 10:20 | XMS_ITS | Encounter Summary ---
:2000 Author Organization [place] Address [address] [facility] [place] [address] Care Team Providers Name Role Phone Magnus Zayas DO Unavailable [phone] Magda Winchester MD Primary Care Provider [...] Juarez MD 2450 [facility] MB[address] [place], [place] [address] (Wo rk) 07/27/2022 Office Visit Cardiology Cordell Juarez MD [address] [place], [place] [address] (Wo rk) documented as of this encounter Visit Diagnoses Not on filedocumented in this encounter Additional Health Concerns Assessment Noted Time PHQ-9 Depression Total Score: 10 04/01/2019 9:14 AM CD T documented as of this encounter Care Teams Fire Crew Specialist Relationship Specialty Start Date End Date Magda Winchester, PCP - General Family Medicine Magnus Zayas, DO Assigned PCP 11/20/[address] [place] [address] 284 [place], [place] [address] documented as of this encounter
--- OUTSIDE RECORDS SUMMARY | 2022-04-10 10:20 | XMS_ITS | Encounter Summary ---
:2000 Author Organization [place] Address [facility] [place] [address] Care Team Providers Name Role Phone Magnus Zayas DO Unavailable [phone] Magda Winchester MD Primary Care Provider Reason for Visit Reason Onset Date Comments Prior Auth - Medication 03/13/2022 Sildenafil - new insurance, denied Encounter Details Date Type Department Care Team Description 03/13/2022 Telephone [facility] Cordell Juarez Prio r Auth - Pediatric Specialty MD Medication (Sild[facility]afil Clinic [address] - new insurance, [address] [facility] [address] denied) [address] [place] [address] [phone] Social History Tobacco Use Types Packs/Day Years [...] Medication: Sildenafil - new insurance Insurance Company: [email or web address] - Start Date: 03/13/2022 documented in this encounter Plan of Treatment Upcoming Encounters Date Type Specialty Care Team Description 07/27/2022 Ancillary Procedure Cardiology Cordell Juarez MD [facility]0 [address] [address] (Wo rk) 07/27/2022 Office Visit Cardiology Cordell Juarez MD [facility] [address] [address] (Wo rk) documented as of this encounter Visit Diagnoses Not on filedocumented in this encounter Additional Health Concerns Assessment Noted Time PHQ-9 Depression Total Score: 10 04/01/2019 9:14 AM CD T documented as of this encounter Care Teams It Systems Administrator Relationship Specialty Start Date End Date Magda Winchester, PCP - General Family Medicine Magnus Zayas, DO Assigned PCP 11/20/[address] [place] [address] 284 [place], [place] [address] documented as of this encounter
--- OUTSIDE RECORDS SUMMARY | 2022-04-10 10:21 | XMS_ITS | Encounter Summary ---
:2000 Author Organization [place] Address 2450 [place] [address] Care Team Providers Name Role Phone Magnus Zayas DO Unavailable [phone] Magda Winchester MD Primary Care Provider [...] Cardiology Cordell Juarez MD [address] [facility] [address] [place], [place] [address] (Wo rk) 07/27/2022 Office Visit Cardiology Cordell Juarez MD [address] [place], [place] [address] (Wo rk) documented as of this encounter Visit Diagnoses Not on filedocumented in this encounter Additional Health Concerns Assessment Noted Time PHQ-9 Depression Total Score: 10 04/01/2019 9:14 AM CD T documented as of this encounter Care Teams Mothers Helper Relationship Specialty Start Date End Date Magda Winchester, PCP - General Family Medicine Magnus Zayas, DO Assigned PCP 11/20/[address] [place] [address] 284 [place], [place] [address] documented as of this encounter
--- OUTSIDE RECORDS SUMMARY | 2022-04-10 10:21 | XMS_ITS | Encounter Summary ---
:2000 Author Organization [place] Address 2450 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) Chest pain, unspecified type Single ventricle with heterotaxia syndrome Cordell Juarez MD Procedures Leadless wastewater project manager 3 to 7 Days ZZHC EXT ECG > 48HR TO 21 DAY RCRD W/CONECT INTL RCRD ZZC EXT ECG > 48HR TO 21 DAY REVIEW AND INTERPRETATN FL EXT ECG > 48HR TO 21 DAY RCRD W/CONECT INTL RCRD 2450 [facility] [address] FL EXT ECG > 48HR TO 21 DAY REVIEW AND INTERPRETATN HC EXT ECG > 48HR TO 21 DAY RCRD W/[place] [address] Referral ID Status Reason Start Date Expiration Date Visits V isits Requested Authorized [id number] Pending 09/28/2021 09/28/2022 1 1 Review Encounter Details Date Type Department Care Team Description 10/02/2021 Ancillary [facility] [place] Cordell Juarez Doub le-outlet right ventricle with ventricular septal defect; Procedure [facility] Marie DUPREE DAldoTGA (dextro-transposition of great art eries); [address] [place] pain, unspecified type; [place] [address] Single ventricle with heterotaxia syndro [address] [place] [phone] Social History Tobacco Use Types Packs/Day Years [...] 07/27/2022 Ancillary Procedure Cardiology Cordell Juarez MD [facility] [address] [address] (Wo rk) 07/27/2022 Office Visit Cardiology Cordell Juarez MD [address] [place] [address] (Wo rk) documented as of this encounter Procedures Procedure Name Priority Date/Time Associated Diagnosis Comme nts LEADLESS SPARES SCHEDULER Routine 10/02/2021 2:37 PM Double-outlet right APPLICATION AND CDT ventricle with INTERPRETATION 3 TO 7 DAY ventricular sep osvaldo defect D-TGA (dextro-transposition of great arterie s) Chest pain, unspecified type Single ventricle with heterotaxia syndrome documented in this encounter Results LEADLESS SPARES SCHEDULER APPLICATION AND INTERPRETATION 3 TO 7 DAY [...] as of this encounter Care Teams Fire Behavior Analyst Relationship Specialty Start Date End Date Magda Winchester, PCP - General Family Medicine Magnus Zayas, Assigned PCP 11/20/[address] [place] [address] 284 [place] [address] documented as of this encounter
--- OUTSIDE RECORDS SUMMARY | 2022-04-10 10:21 | XMS_ITS | Encounter Summary ---
:2000 Author Organization [place] Address 2450 [place] [address] Care Team Providers Name Role Phone Magnus Zayas DO Unavailable [phone] Magda Winchester MD Primary Care Provider [...] Cardiology Cordell Juarez MD [address] [facility] [address] [place], [place] [address] (Wo rk) 07/27/2022 Office Visit Cardiology Cordell Juarez MD [address] [place], [place] [address] (Wo rk) documented as of this encounter Visit Diagnoses Not on filedocumented in this encounter Additional Health Concerns Assessment Noted Time PHQ-9 Depression Total Score: 10 04/01/2019 9:14 AM CD T documented as of this encounter Care Teams Junior Buyer Relationship Specialty Start Date End Date Magda Winchester, PCP - General Family Medicine Magnus Zayas, DO Assigned PCP 11/20/[address] [place] [address] 284 [place], [place] [address] documented as of this encounter
--- OUTSIDE RECORDS SUMMARY | 2022-04-10 10:21 | XMS_ITS | Encounter Summary ---
:2000 Author Organization [place] Address 2450 [facility] [place] [address] Care Team Providers Name Role Phone Magnus Zayas DO Unavailable [phone] Magda Winchester MD Primary Care Provider [...] Juarez MD 2450 [facility] [address] [place], [place] [address] (Wo rk) 07/27/2022 Office Visit Cardiology Cordell Juarez MD [address] [place], [place] [address] (Wo rk) documented as of this encounter Visit Diagnoses Not on filedocumented in this encounter Additional Health Concerns Assessment Noted Time PHQ-9 Depression Total Score: 10 04/01/2019 9:14 AM CD T documented as of this encounter Care Teams Regional Facilities Specialist Relationship Specialty Start Date End Date Magda Winchester, PCP - General Family Medicine Magnus Zayas, DO Assigned PCP 11/20/[address] [place] [address] 284 [place], [place] [address] documented as of this encounter
--- OUTSIDE RECORDS SUMMARY | 2022-04-10 10:21 | XMS_ITS | Encounter Summary ---
:2000 Author Organization [place] Address [address] [facility] [place] [address] Care Team Providers Name Role Phone Magnus Zayas DO Primary Care Provider [phone] Magnus Zayas DO Unavailable [phone] Reason for Visit Reason Comments Medication Refill Metoprolol Succinate ER Oral Tablet Extended Release 24 Hour 25 MG Encounter Details Date Type Department Care Team Description 03/20/2021 Refill [facility] LarryShlomo MD Medication Refill Clinic [address] [place] [address] (Metoprolol Succinate 909 [facility] [address] [place] [address] Release 24 Hour 25 MG) [address] [phone] Social History Tobacco Use Types Packs/Day Years [...] Ancillary Procedure Cardiology Cordell Juarez MD [address] [facility] [place], [place] [address] (Wo rk) 07/27/2022 Office Visit Cardiology Cordell Juarez MD [address] [place], [place] [address] (Wo rk) documented as of this encounter Visit Diagnoses Not on filedocumented in this encounter Additional Health Concerns Assessment Noted Time PHQ-9 Depression Total Score: 10 04/01/2019 9:14 AM CD T documented as of this encounter Care Teams Profile Shaper Operator Relationship Specialty Start Date End Date Magnus Zayas, PCP - General Student in organized 02/23/20 09/17/[address] [place] [address] education/training program 284 [place], [place] [address] Magnus Zayas, Assigned PCP 11/20/[address] [place] [address] 284 [place], [place] [address] documented as of this encounter
--- OUTSIDE RECORDS SUMMARY | 2022-04-10 10:21 | XMS_ITS | Encounter Summary ---
:2000 Author Organization [place] Address 2450 [facility] [place] [address] Care Team Providers Name Role Phone Magnus Zayas DO Unavailable [phone] Magda Winchester MD Primary Care Provider [...] Ancillary Procedure Cardiology Cordell Juarez MD 2450 [facility] [address] [place], [place] [address] (Wo rk) 07/27/2022 Office Visit Cardiology Cordell Juarez MD [address] [place], [place] [address] (Wo rk) documented as of this encounter Visit Diagnoses Not on filedocumented in this encounter Additional Health Concerns Assessment Noted Time PHQ-9 Depression Total Score: 10 04/01/2019 9:14 AM CD T documented as of this encounter Care Teams Rotary Drier Operator Relationship Specialty Start Date End Date Magda Winchester, PCP - General Family Medicine Magnus Zayas, DO Assigned PCP 11/20/[address] [place] [address] 284 [place], [place] [address] documented as of this encounter
--- OUTSIDE RECORDS SUMMARY | 2022-04-10 10:21 | XMS_ITS | Encounter Summary ---
:2000 Author Organization [place] Address 2450 [facility] [place] [address] Care Team Providers Name Role Phone Magnus Zayas DO Unavailable [phone] Magda Winchester MD Primary Care Provider [...] STATISTIC IV PUSH SINGL E INITIAL SUBSTANCE WA DOPPLER ECHO PULSED, COMPLETE WA DOPPLER ECHO COLOR FLOW VELOCITY MAP WA ECHO XTHORACIC,NEHEMIAS ANOM,COMPLETE WA ECHO CONGENITAL W/O CONTRAST HC DOPPLER ECHO PULSED, [place] [address] HC DOPPLER ECHO COLOR FLOW V ELOCITY MAP HC STATISTIC IV PUSH SINGLE INITIAL SUBSTANCE HC ECHO CONGENITAL ANOM W/CONTRAST HC ECHO CONGENITAL ANOM W/O CONTRAST Referral ID Status Reason Start Date Expiration Date Visits V isits Requested Authorized [id number] Pending 02/06/2022 02/06/2023 1 1 Review V Testing (Routine) - Closed Specialty Diagnoses / Procedures Referred By Contact Refer red To Contact Diagnoses 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) Chest pain, unspecified type Single ventricle with heterotaxia syndrome Cordell Juarez MD Procedures Cardiopulmonary Stress Test - Adult [facility] [place] [address] Referral ID Status Reason Start Date Expiration Date Visits Requ ested Visits Authorized [id number] Closed 02/06/2022 02/06/2023 1 1 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) Chest pain, unspecified type Single ventricle with heterotaxia syndrome Cordell Juarez MD [facility] [place] [id number] Referral ID Status Reason Start Date Expiration Date Visits V isits Requested Authorized [id number] Pending 02/06/2022 02/06/2023 1 1 Review Scheduling [...] with heterotaxia syndrome Cordell Juarez MD 2450 [facility] [address] [place] [address] Referral ID Status Reason Start Date Expiration Date Visits V isits Requested Authorized [id number] Pending 09/28/2021 09/28/2022 1 1 Review Encounter Details Date Type Department Care Team Description 02/06/2022 Office Visit [facility] Cordell Juarez Doub le-outlet right ventricle with ventricular septal defect; Heart Clinic D-TGA (dextro-transposition of great art eries); [address] [place] [address] 2450 [facility] Chest pain, unspecified type ; [place], [place] [address] [place] [address] [place], [place] [phone] [address] (Wo rk) Social History Tobacco Use [...] Congenital and Cardiovascular Genetics Clinic at the [facility]. Cardiology Providers you saw during your visit: [...] MPH, RN, BSN Florinda Robb (Scheduling) Nurse Objective C Developer Clinic Roll Builder Adult Congenital and CV Genetics Adult Congenital and CV Genetic [facility] Heart [facility] (P) [phone] (P) [phone] [email or web address] (F) [phone] For after hours urgent needs, call [phone] and ask to speak to the Adult Congenital Physician economic adviser. Mention Job Code 0401. For emergencies call 911. [facility] Heart [facility] Mail Code [id number] 9 [place] [address] documented in this encounter Nursing Notes Pipe [...] Juarez MD [facility] [address] [address] (Wo lucio) 07/27/2022 Office Visit Cardiology Cordell Juarez MD [address]50 [facility] [place], [place] [address] (Wo rk) Scheduled Orders Name Type Priority [...] VO2MAX 42.4 Max 29,583 CARPULSTRPH1 3 mins [id number] 0 sec CARPULSTRPH1 87 bpm CARPULBPPH1 133/83 mmHg CARPULSTRPH1 95 % SpO2 CARPULSTRPH2 6 mins [id number] 0 sec CARPULSTRPH2 112 bpm CARPULBPPH2 143/77 mmHg CARPULSTRPH2 93 % SpO2 CARPULSTRPH3 9 mins [id number] 0 sec CARPULSTRPH3 130 bpm CARPULBPPH3 161/82 mmHg CARPULSTRPH3 91 % SpO2 CARPULSTRPH4 12 mins [id number] 0 sec CARPULSTRPH4 167 bpm CARPULBPPH4 171/72 mmHg CARPULSTRPH4 91 % SpO2 CARPULSTRPH5 13 mins [id number] 0 sec CARPULSTRPH5 173 bpm CARPULSTRPH5 90 % SpO2 CARPULSTRPB1 1 mins [id number] 0 sec CARPULSTRPHB1 154 bpm CARPULBPPHB1 110/61 mmHg CARPULSTRPHB1 90 % SpO2 CARPULSTRPHB2 3 mins [id number] 0 sec CARPULSTRPHB2 102 bpm CARPULBPPHB2 159/108 mmHg CARPULSTRPHB2 93 % SpO2 CARPULSTRPHB3 5 mins [id number] 0 sec CARPULSTRPHB3 108 bpm CARPULBPPHB3 139/98 mmHg CARPULSTRPHB3 92 % SpO2 Max 31.92 ml/kg/m in Predicted 42.40 ml/kg/m in Percent 75 % RER 1.12 VE/VCO2 [place] 28.33 CARPULANEROBICTHRES 31.20 ml/kg/m in CARPULANAEROBICTHRESPERDICTED 74.0 [...] documented as of this encounter Care Teams Signaling Design Engineer Relationship Specialty Start Date End Date Magda Winchester, PCP - General Family Medicine Magnus Zayas, DO Assigned PCP 11/20/[address] [place] [address] 284 [place] [address] documented as of this encounter
--- OUTSIDE RECORDS SUMMARY | 2022-04-10 10:21 | XMS_ITS | Encounter Summary ---
:2000 Author Organization [place] Address [facility] [place] [address] Care Team Providers Name Role Phone Magnus Zayas DO Unavailable [phone] Magda Winchester MD Primary Care Provider Reason for Visit Reason Onset Date Comments Prior Auth - Medication 10/20/2021 Sildenafil Citra te 20 MG - APPROVED Encounter Details Date Type Department Care Team Description 10/20/2021 Telephone [facility] Cordell Juarez Prio r Auth - Pediatric Specialty Medication (Sildenafil Clinic [address] Citrate 20 MG - [address] [facility] [address] APPROVED/) [address] [place] [address] [phone] Social History Tobacco Use Types Packs/Day Years [...] - APPROVED Approved Dose/Quantity: Reference #: Insurance Teqcycle: [employer] - Expected CoPay: CoPay Card Available: [facility] Assistance Needed: Which Pharmacy is filling the prescription (Not needed for infusion/clinic administered): [id number] [place] [address] Pharmacy Notified: Yes Patient Notified: Yes Instructed pharmacy to notify patient when script is ready to sweet pickle maker/ship. Telephone Encounter - Dorothea Amaral - 10/26/2021 2:49 PM CDT Insurance requesting more information. Form faxed. Telephone Encounter - Dorothea Amaral - 10/25/2021 9:37 AM CDT Images from the original note were not included. Central Prior Authorization Team PA Initiation Medication: Sildenafil Citrate 20 MG Tab Ajan Insurance Teqcycle: Smart Patients - Pharmacy Filling the Rx: [id number] [place] [address] Filling Pharmacy Filling Pharmacy Start Date: 10/25/2021 [...] Previously Tried and Failed: Rationale: Insurance Name[facility] [employer] [facility] Pharmacy Information (if different than what is on RX) Name: [facility] documented in this encounter Plan of Treatment Upcoming Encounters Date Type Specialty Care Team Description 07/27/2022 Ancillary Procedure Cardiology Cordell Juarez MD [facility] [place] [address] (Wo rk) 07/27/2022 Office Visit Cardiology Cordell Juarez MD 24[address] [facility] [address] [place], [place] [address] (Wo rk) documented as of this encounter Visit Diagnoses Not on filedocumented in this encounter Additional Health Concerns Assessment Noted Time PHQ-9 Depression Total Score: 10 04/01/2019 9:14 AM CD T documented as of this encounter Care Teams Email Marketing Executive Relationship Specialty Start Date End Date Magda Winchester, PCP - General Family Medicine Magnus Zayas, DO Assigned PCP 11/20/[address] [place] [address] 284 [place] [address] documented as of this encounter
--- OUTSIDE RECORDS SUMMARY | 2022-04-10 10:21 | XMS_ITS | Encounter Summary ---
:2000 Author Organization [place] Address [facility]0 [facility] [place] [address] Care Team Providers Name Role Phone Magnus Zayas DO Primary Care Provider Magnus Zayas DO Unavailable [phone] Encounter Details Date Type Department Care Team Description 05/06/2021 Telephone [facility] Pediatric Larry Cordell MD Specialty Clinic [address] [address] [address] [facility] [place] [address] [address] [place] [address] [phone] Social History Tobacco Use Types Packs/Day Years [...] to schedule appointment follow up with testing. OYMENT SPECIALIST documented in this encounter Plan of Treatment Upcoming Encounters Date Type Specialty Care Team Description 07/27/2022 Ancillary Procedure Cardiology Cordell Juarez MD [address] [address] [place] [address] (Wo rk) 07/27/2022 Office Visit Cardiology Cordell Juarez MD [address] [facility] [address] [place] [address] (Wo rk) documented as of this encounter Visit Diagnoses Not on filedocumented in this encounter Additional Health Concerns Assessment Noted Time PHQ-9 Depression Total Score: 10 04/01/2019 9:14 AM CD T documented as of this encounter Care Teams Financial Legal Assistant Relationship Specialty Start Date End Date Magnus Zayas, PCP - General Student in organized 02/23/20 09/17/[address] education/training program [address] [place] [address] Magnus Zayas, Assigned PCP 11/20/[address] [address] documented as of this encounter
--- OUTSIDE RECORDS SUMMARY | 2022-04-10 10:21 | XMS_ITS | Encounter Summary ---
:2000 Author Organization [place] Address [address] [facility] 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) Chest pain, unspecified type Single ventricle with heterotaxia syndrome Cordell Herrera MD Procedures Leadless application consultant 3 to 7 Days ZZHC EXT ECG > 48HR TO 21 DAY RCRD W/CONECT INTL RCRD ZZC EXT ECG > 48HR TO 21 DAY REVIEW AND INTERPRETATN MD EXT ECG > 48HR TO 21 DAY RCRD W/CONECT INTL RCRD [address] [facility] [address] MD EXT ECG > 48HR TO 21 DAY REVIEW AND INTERPRETATN HC EXT ECG > 48HR TO 21 DAY RCRD W/[place] [address] Referral ID Status Reason Start Date Expiration Date Visits V isits Requested Authorized [id number] Pending 09/28/2021 09/28/2022 1 1 Review Diagnostic Imaging MRI (Routine) - Closed Specialty Diagnoses / Procedures Referred By Contact Refer red To Contact Diagnoses 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) Chest pain, unspecified type Single ventricle with heterotaxia syndrome Cordell Herrera MD Procedures MR Abdomen w Contrast [address] [place] [id number] 4 Referral ID Status Reason Start Date Expiration Date Visits Requ ested Visits Authorized [id number] Closed 09/28/2021 09/28/2022 1 1 Diagnostic Imaging MRI (Routine) - Closed Specialty Diagnoses / Procedures Referred By Contact Refer red To Contact Diagnoses 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) Chest pain, unspecified type Single ventricle with heterotaxia syndrome Cordell Herrera MD Procedures MRA Chest with Contrast [address] [place] [address] 4 Referral ID Status Reason Start Date Expiration Date Visits Requ ested Visits Authorized [id number] Closed 09/28/2021 09/28/2022 1 1 Diagnostic Imaging MRI (Routine) - Closed Specialty Diagnoses / Procedures Referred By Contact Refer red To Contact Diagnoses 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) Chest pain, unspecified type Single ventricle with heterotaxia syndrome Cordell Herrera MD Procedures MRI Cardiac w/contrast and flow [address] [address] 4 Referral ID Status Reason Start Date Expiration Date Visits Requ ested Visits Authorized [id number] Closed 09/28/2021 09/28/2022 1 1 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) Chest pain, unspecified type Single ventricle with heterotaxia syndrome Cordell Herrera MD [address] [place], [place] [address] [address] [place] [address] Referral ID Status Reason Start Date Expiration Date Visits V isits Requested Authorized [id number] Pending 09/28/2021 09/28/2022 1 1 Review Scheduling [...] Department Care Team Description 09/26/2021 Office Visit [facility] Cordell Herrera Doub le-outlet right ventricle with ventricular septal defect; Heart Clinic DAldoTGA (dextro-transposition of great art eries); [address] [place], [place] [address] Chest pain, unspecified type ; [place], [place] [address] [place] [address] [place], [place] [phone] (Wo rk) Social History Tobacco Use Types [...] Congenital and Cardiovascular Genetics Clinic at the [facility]. Cardiology Providers you saw during your [...] sildenafil and omeprazole Follow up with your go cart mechanic, once complete we will send out a [...] MPH, RN, BSN Florinda Robb (Scheduling) Nurse Animal Caregiver Clinic Camera Systems Engineer Adult Congenital and CV Genetics Adult Congenital and CV Genetic [facility] Heart Care [facility] (P) [phone] (P) [phone] [email or web address] (F) [phone] For after hours urgent needs, call [phone] and ask to speak to the Adult Congenital Physician financial analysis consultant. Mention Job Code 0401. For emergencies call 911. [facility] Heart Care [facility] Mail Code [id number] [address] [place] [id number] documented in this encounter Progress Notes Cordell Herrera MD - 09/26/2021 2:30 PM CDT Adult Congenital Cardiology Visit Patient: Jude Merritt Date of : 2000 Age: [age] year old Date of Visit: Sep 26, 2021 PCP: Magda Winchester MD Dear Dr. Zayas, I had the pleasure of seeing your patient, Jude Merritt, in the [facility] clinic at the [facility] on Sep 26, 2021. 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 He underwent a central shunt, followed by a Fortino procedure and [facility] in director of community center. He had catheter closure of his Fontan fenestration at the [facility] in January 2007. 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 He plans to pursue prerequisites for an [...] in nursing school. 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 Living with parents at present. Review of [...] Study Date: 09/26/2021 12:26 PM Patient Location: [facility] Age: 21 yrs : 2000 BP: [...] and plan, and documentation. Cordell Herrera M.D. Pre K Special Education Teacher of Pediatrics Pediatric and Adult Congenital Cardiology [facility] Pediatric Cardiology Office [phone] Adult Congenital Cardiology Triage and Scheduling [phone] CC: Jude Merritt documented in this encounter [...] 07/27/2022 Ancillary Procedure Cardiology Cordell Herrera MD [address] [address] [place] [address] (Wo rk) 07/27/2022 Office Visit Cardiology Cordell Herrera MD [address] [address] [place] [address] (Wo rk) Scheduled Referrals Name Type Priority [...] ? [facility] ? CMR Report ??MRN: ?[id number] ?Name: ? RENÉ, JUDE L ?: ?1999-0 [...] note might be different from the original. [facility] CMR Report Name: JUDE MERRITT : 2000 [...] CDT Narrative 11/10/2021 1:26 PM CDT ? [facility] ? CMR Report ??MRN: ?[id number] ?Name: ? JUDE MERRITT ?: ?1999-0 8-16 [...] note might be different from the original. [facility] CMR Report Name: JUDE MERRITT : 2000 [...] Cordell Herrera MD IMG MRI ORDERABLES LEADLESS SUPERVISOR DRY CELL ASSEMBLY APPLICATION AND INTERPRETATION 3 TO 7 DAY [...] City/State/ZIP Code Phon e Number [facility] [place] [address] Lab [address] [facility] [address] Building, Room 3-580 (ABNORMAL) CBC with platelets and differential (09/26/2021 10:25 AM CDT) [facility] gist Method Time Signature WBC Count 5.4 [...] City/State/ZIP Code Phon [place] [address] Lab 500 [facility], Room 3-580 (ABNORMAL) TSH with free [...] LAB - BLOOD ORDERABLES Performing Organization Address [facility]/ZIP Code Phon [place] [address] Lab 500 [facility], Room 3-580 (ABNORMAL) Comprehensive metabolic panel [...] and gender (Kristin et al., NEJM, DOI: [id number]/[id number]) Specimen Anatomical Collection Method / Collection Time Recei dipesh Time (Source) Location / Volume Laterality Blood STRUCTURE OF RIGHT Venipuncture / 09/26/2021 10:25 05/2022 UPPER LIMB / Unknown AM CDT 10:44 AM CDT Unknown Cordell Herrera MD LAB - BLOOD ORDERABLES Performing Organization Address City/State/ZIP Code Phon [place] [address] Lab [address] [facility] [address] Building, Room 3-580 INR (09/26/2021 [...] City/State/ZIP Code Phon e Number [facility] [place] [address] Lab [address] [facility] Unit [facility], Room 3-580 IgG (09/26/2021 10:25 [...] e Number [facility] C[facility]/PROT/ENDO [facility] [address] Core/Prot/Endo 500 [facility], Room 3-580 documented in this encounter Visit [...] documented as of this encounter Care Teams Fund Director Relationship Specialty Start Date End Date Magda Winchester, PCP - General Family Medicine Magnus Zayas, DO Assigned PCP 11/20/[address] [place] [address] 284 [place] [address] documented as of this encounter
--- OUTSIDE RECORDS SUMMARY | 2022-04-10 10:21 | XMS_ITS | Encounter Summary ---
:2000 Author Organization [place] Address [address] [facility] [place] [address] Care Team Providers Name Role Phone Magnus Zayas DO Unavailable [phone] Magda Winchester MD Primary Care Provider [...] DOPPLER ECHO COLOR FLOW VELOCITY MAP [facility] [facility] [address] ZZHC STATISTIC IV PUSH SINGL E INITIAL SUBSTANCE NM DOPPLER ECHO PULSED, COMPLETE NM DOPPLER ECHO COLOR FLOW VELOCITY MAP NM ECHO XTHORACIC,NEHEMIAS ANOM,COMPLETE NM ECHO CONGENITAL W/O CONTRAST HC DOPPLER ECHO PULSED, [place] [address] HC DOPPLER ECHO COLOR FLOW V ELOCITY MAP HC STATISTIC IV PUSH SINGLE INITIAL SUBSTANCE HC ECHO CONGENITAL ANOM W/CONTRAST HC ECHO CONGENITAL ANOM W/O CONTRAST Referral ID Status Reason Start Date Expiration Date Visits Requ ested Visits Authorized [id number] Closed 03/10/2021 03/10/2022 1 1 Encounter Details Date Type Department Care Team Description 09/26/2021 Ancillary [facility] Cordell Juarez Doub le-outlet right ventricle with ventricular septal defect; Procedure [facility] Marie DUPREE D-TGA (dextro-transposition of great art eries) [address] [place] [address] Social History Tobacco Use Types Packs/Day [...] Procedure Cardiology Cordell Juarez MD [facility] [address] [address] (Wo rk) 07/27/2022 Office Visit Cardiology Cordell Juarez MD [facility] [address] [address] (Wo rk) documented as of this encounter [...] PM CDT Narrative 09/26/2021 1:22 PM CDT [id number]^JAVIER^CORDELL^RYAN ? Study ID: [id number] ?[facility] ?[facility] ?[address] ?[place] [address] ? Pediatric Echocardiogram Name: JUDE BILLS Study [...] note might be different from the original. [id number]^JAVIER^CORDELL^RYAN Study ID: [id number] [place] [address] Pediatric Echocardiogram Name: JUDE BILLS Study Date: [...] documented as of this encounter Care Teams Sample Sewer Relationship Specialty Start Date End Date Magda Winchester, PCP - General Family Medicine Magnus Zayas, Assigned PCP 11/20/[address] [place] [address] 284 [place] [address] documented as of this encounter
--- OUTSIDE RECORDS SUMMARY | 2022-04-10 10:21 | XMS_ITS | Encounter Summary ---
:2000 Author Organization [place] Address [address]50 [place] [address] Care Team Providers Name Role Phone Magnus Zayas DO Unavailable [phone] Magda Winchester MD Primary Care Provider [...] Ancillary Procedure Cardiology Cordell Juarez MD 2450 [facility] [address] [place], [place] [address] (Wo rk) 07/27/2022 Office Visit Cardiology Cordell Juarez MD [address] [place], [place] [address] (Wo rk) documented as of this encounter Visit Diagnoses Not on filedocumented in this encounter Additional Health Concerns Assessment Noted Time PHQ-9 Depression Total Score: 10 04/01/2019 9:14 AM CD T documented as of this encounter Care Teams Rip Machine Operator Relationship Specialty Start Date End Date Magda Winchester, PCP - General Family Medicine Magnus Zayas, DO Assigned PCP 11/20/[address] [place] [address] 284 [place], [place] [address] documented as of this encounter
--- OUTSIDE RECORDS SUMMARY | 2022-04-10 10:21 | XMS_ITS | Encounter Summary ---
:2000 Author Organization [place] Address [address] [facility] 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) Chest pain, unspecified type Single ventricle with heterotaxia syndrome Cordell Juarez MD Procedures MRA Chest with Contrast 2450 [facility] [place], [place] [address] Referral ID Status Reason Start Date Expiration Date Visits Requ ested Visits Authorized [id number] Closed 09/28/2021 09/28/2022 1 1 Reason for Visit Diagnostic Imaging MRI (Routine) - Closed Specialty Diagnoses / Procedures Referred By Contact Refer red To Contact Diagnoses 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) Chest pain, unspecified type Single ventricle with heterotaxia syndrome Cordell Juarez MD Procedures MRA Chest with Contrast [address] [address] [place], [place] [address] Referral ID Status Reason Start Date Expiration Date Visits Requ ested Visits Authorized [id number] Closed 09/28/2021 09/28/2022 1 1 Encounter Details Date Type Department Care Team Description 11/10/2021 Hospital Encounter [facility] Cordell Juarez , 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; [facility] Imaging D-TGA (dextro-transposition of great art eries); [address] Chest pain, unspecified type ; [place], [place] [address] [place] [address] [place], [place] [phone] [address] Social History Tobacco Use Types Packs/Day [...] Procedure Cardiology Cordell Juarez MD [facility] [address] [address] (Wo rk) 07/27/2022 Office Visit Cardiology oCrdell Juarez MD [facility] [place] [address] (Wo rk) documented as of this encounter [...] ? [facility] ? CMR Report ??MRN: ?[id number] ?Name: ? RENÉ, JUDE L ?: ?2000-0 [...] note might be different from the original. [facility] CMR Report Name: JUDE BILLS : 2000 [...] generated by gil Tena of [facility] [employer] Cordell Juarez MD IMG MRI ORDERABLES documented [...] documented as of this encounter Care Teams Retreader Relationship Specialty Start Date End Date Magda Winchester, PCP - General Family Medicine Magnus Zayas, Assigned PCP 11/20/[address] [place] [address] documented as of this encounter
--- OUTSIDE RECORDS SUMMARY | 2022-04-10 10:21 | XMS_ITS | Encounter Summary ---
:2000 Author Organization [place] Address [address] [facility] 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) Chest pain, unspecified type Single ventricle with heterotaxia syndrome Cordell Juarez MD Procedures MRI Cardiac w/contrast and flow 2450 [facility] [place], [place] [address] Referral ID Status Reason Start Date Expiration Date Visits Requ ested Visits Authorized [id number] Closed 09/28/2021 09/28/2022 1 1 Reason for Visit Diagnostic Imaging MRI (Routine) - Closed Specialty Diagnoses / Procedures Referred By Contact Refer red To Contact Diagnoses 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) Chest pain, unspecified type Single ventricle with heterotaxia syndrome Cordell Juarez MD Procedures MRI Cardiac w/contrast and flow [address] [place], [place] [address] Referral ID Status Reason Start Date Expiration Date Visits Requ ested Visits Authorized [id number] Closed 09/28/2021 09/28/2022 1 1 Encounter Details Date Type Department Care Team Description 11/10/2021 Hospital Encounter [facility] Cordell Juarez , 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; [facility] Imaging D-TGA (dextro-transposition of great art eries); [address] Chest pain, unspecified type ; [place], [place] [address] [place] [address] [place], [place] [phone] [address] Social History Tobacco Use Types Packs/Day Years [...] Ancillary Procedure Cardiology Cordell Juarez MD [address] [place] [address] (Wo rk) 07/27/2022 Office Visit Cardiology Cordell Juarez MD [address] [place] [address] [address] (Wo rk) documented as of this encounter [...] ? [facility] ? CMR Report ??MRN: ?[id number] ?Name: ? RENÉ, LUKE L ?: ?2000-0 [...] note might be different from the original. [facility] CMR Report Name: JUDE BILLS [...] REFERRING PHYSICIAN: CORDELL JUAREZ ATTENDING PHYSICIAN: CORDELL SANCHEZ -------- CPT Codes ICD10 Codes Q20.1, Q20.3, R07.9, Q20.4 Report generated by gil Tena of [facility] [employer] ([employer]) Cordell Juarez MD IMG MRI ORDERABLES documented [...] documented as of this encounter Care Teams Deputy Director Relationship Specialty Start Date End Date Magda Winchester, PCP - General Family Medicine Magnus Zayas, DO Assigned PCP 11/20/[address] [place] [address] documented as of this encounter
--- OUTSIDE RECORDS SUMMARY | 2022-04-10 10:21 | XMS_ITS | Encounter Summary ---
:2000 Author Organization [place] Address [address] [facility] 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) Cordell Juarez MD Procedures Cardiopulmonary Stress Test - Adult [address] [place] [id number] 4 Referral ID Status Reason Start Date Expiration Date Visits Requ ested Visits Authorized [id number] Closed 03/10/2021 03/10/2022 1 1 Reason for Visit CV Testing (Routine) - Closed Specialty Diagnoses / Procedures Referred By Contact Refer red To Contact Diagnoses 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) Cordell Juarez MD Procedures Cardiopulmonary Stress Test - Adult [address] [place] [address] 4 Referral ID Status Reason Start Date Expiration Date Visits Requ ested Visits Authorized [id number] Closed 03/10/2021 03/10/2022 1 1 Encounter Details Date Type Department Care Team Description 09/26/2021 Hospital Encounter [facility] Larry, Cordell Barajas , 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; [place] D-TGA (dextro-transposition of great art eries) [place] [address]60 [facility] [address] [address] [place] [address] [phone] Social History Tobacco Use Types Packs/Day Years [...] Ancillary Procedure Cardiology Larry, Cordell Barajas MD [address] [address] (Wo rk) 07/27/2022 Office Visit Cardiology Larry, Cordell skelton MD 2450 [facility]556 [place] [address] (Wo rk) documented as of this encounter [...] VO2MAX 42.7 Max 22,518 CARPULSTRPH1 3 mins [id number] 0 sec CARPULSTRPH1 83 bpm CARPULBPPH1 125/85 mmHg CARPULSTRPH1 95 % SpO2 CARPULSTRPH2 6 mins [id number] 0 sec CARPULSTRPH2 96 bpm CARPULBPPH2 130/80 mmHg CARPULSTRPH2 94 % SpO2 CARPULSTRPH3 9 mins [id number] 0 sec CARPULSTRPH3 120 bpm CARPULBPPH3 130/77 mmHg CARPULSTRPH3 94 % SpO2 CARPULSTRPH4 12 mins [id number] 0 sec CARPULSTRPH4 135 bpm CARPULBPPH4 122/75 mmHg CARPULSTRPH4 94 % SpO2 CARPULSTRPH5 12 mins [id number] 37 sec CARPULSTRPH5 162 bpm CARPULBPPH5 139/69 mmHg CARPULSTRPH5 93 % SpO2 CARPULSTRPB1 1 mins [id number] 0 sec CARPULSTRPHB1 139 bpm CARPULBPPHB1 125/69 mmHg CARPULSTRPHB1 93 % SpO2 CARPULSTRPHB2 3 mins [id number] 0 sec CARPULSTRPHB2 124 bpm CARPULBPPHB2 120/72 mmHg CARPULSTRPHB2 94 % SpO2 CARPULSTRPHB3 5 mins [id number] 0 sec CARPULSTRPHB3 97 bpm CARPULBPPHB3 118/80 mmHg CARPULSTRPHB3 96 % SpO2 Max 29.50 ml/kg/m in Predicted 42.70 ml/kg/m in Percent 69 % RER 1.05 VE/VCO2 [place] 28.82 CARPULANEROBICTHRES 23.60 ml/kg/m in CARPULANAEROBICTHRESPERDICTED 55.0 [...] documented as of this encounter Care Teams Salvage Winder And Inspector Relationship Specialty Start Date End Date Magda Winchester, PCP - General Family Medicine Magnus Zayas, Assigned PCP 11/20/[address] [place] [address] 284 [place] [address] documented as of this encounter
--- OUTSIDE RECORDS SUMMARY | 2022-04-10 10:21 | XMS_ITS | Encounter Summary ---
:2000 Author Organization [place] Address [facility] [place] [address] Care Team Providers Name Role Phone Magnus Zayas DO Primary Care Provider [phone] Magnus Zayas DO Unavailable [phone] Magda Winchester MD Primary Care Provider Reason for Visit Reason Comments Medication Refill Encounter Details Date Type Department Care Team Description 03/14/2021 Refill [facility] Cordell Juarez MD Medication Refill Pediatric Specialty [facility] [address] [address] [facility] E [place] 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 Other postprocedural status Palpitations Tachycardia Tachycardia, unspecified documented in this encounter Additional Health Concerns Assessment Noted Time PHQ-9 Depression Total Score: 10 04/01/2019 9:14 AM CD T documented as of this encounter Care Teams Crime Scene Photographer Relationship Specialty Start Date End Date Magnus Zayas, PCP - General Student in organized 02/23/20 09/17/[address] education/training program [address] [place], [place] [address] Magda Winchester PCP - General Family Medicine 09/18/21 MD aShara Magnus Zayas, Assigned PCP 11/20/[address] [place] [address] documented as of this encounter
--- OUTSIDE RECORDS SUMMARY | 2022-04-10 10:21 | XMS_ITS | Encounter Summary ---
:2000 Author Organization [place] Address 2450 [facility] [place] [address] Care Team Providers Name Role Phone Magnus Zayas DO Primary Care Provider [phone] Magnus Zayas DO Unavailable [phone] Reason for Visit Reason Comments Medication Refill Encounter Details Date Type Department Care Team Description 04/25/2021 Refill [facility] Heart Larry, Shlomo Barajas MD Medication Refill Clinic 2450 [facility]556 9 [place] [address] [place], [place] [phone] (Wo rk) [address] [phone] Social History Tobacco Use Types Packs/Day Years [...] DAY RF SENT OVER DUE DIG. 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 AND MOBILITY TECHNOLOGIST documented in this encounter Plan of Treatment Upcoming Encounters Date Type Specialty Care Team Description 07/27/2022 Ancillary Procedure Cardiology Cordell Juarez MD [address] [place] [place], [place] [address] (Wo rk) 07/27/2022 Office Visit Cardiology Cordell Juarez MD [address]50 [facility] [address] [place], [place] [address] (Wo rk) documented as of this encounter Visit Diagnoses Diagnosis SVT (supraventricular tachycardia) (H) Other specified cardiac dysrhythmias documented in this encounter Additional Health Concerns Assessment Noted Time PHQ-9 Depression Total Score: 10 04/01/2019 9:14 AM CD T documented as of this encounter Care Teams Fruit I Farmworker Relationship Specialty Start Date End Date Magnus Zayas, PCP - General Student in organized 02/23/20 09/17/[address] education/training program [address] [place] [id number] Magnus Zayas, Assigned PCP 11/20/[address] [place] [address] documented as of this encounter
--- OUTSIDE RECORDS SUMMARY | 2022-04-10 10:21 | XMS_ITS | Encounter Summary ---
:2000 Author Organization [place] Address [facility] [place] [address] Care Team Providers Name Role Phone Magnus Zayas DO Unavailable [phone] Magda Winchester MD Primary Care Provider Encounter Details Date Type Department Care Team Description 10/09/2021 Orders Only [facility] Heart [place], Tach ycardia with heart rate 100-120 beats per minute (Primary Dx); Clinic Marie Day RN D-TGA (dextro-transposition of great arteries); [address] [place] [address] Chest [place], [place] [address] Social History Tobacco Use Types [...] Ancillary Procedure Cardiology Cordell Juarez MD [address] [place] [place] [address] (Wo rk) 07/27/2022 Office Visit Cardiology Cordell Juarez MD [address] [place] [address] [place] [address] (Wo rk) documented as of this encounter [...] City/State/ZIP Code Phon [place] [address] Lab 500 [facility], Room 3-580 documented in this encounter Visit Diagnoses Diagnosis Tachycardia with heart rate 100-120 beat s per minute - Primary 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
--- OUTSIDE RECORDS SUMMARY | 2022-04-10 10:21 | XMS_ITS | Encounter Summary ---
:2000 Author Organization [place] Address 2450 [place] [address] Care Team Providers Name Role Phone Magnus Zayas DO Unavailable [phone] Magda Winchester MD Primary Care Provider [...] Ancillary Procedure Cardiology Cordell Juarez MD 2450 [facility] [address] [place], [place] [address] (Wo rk) 07/27/2022 Office Visit Cardiology Cordell Juarez MD [address] [place], [place] [address] (Wo rk) documented as of this encounter Visit Diagnoses Not on filedocumented in this encounter Additional Health Concerns Assessment Noted Time PHQ-9 Depression Total Score: 10 04/01/2019 9:14 AM CD T documented as of this encounter Care Teams Licensed Acupuncturist Relationship Specialty Start Date End Date Magda Winchester, PCP - General Family Medicine Magnus Zayas, DO Assigned PCP 11/20/[address] [place] [address] 284 [place], [place] [address] documented as of this encounter
--- OUTSIDE RECORDS SUMMARY | 2022-04-10 10:21 | XMS_ITS | Encounter Summary ---
:2000 Author Organization [place] Address [address] [place] [address]. [place] [address] Care Team Providers Name Role Phone Magnus Zayas DO Unavailable [phone] Magda Winchester MD Primary Care Provider Encounter Details Date Type Department Care Team Description 11/01/2021 Lab [facility] Lab Tachyc ardia with heart rate 100-120 beats per minute; [place] D-TGA (dextro-transposition of great arteries); 9 [facility] Chest pain, unspecified type 1st Floor [place], [place] [phone] Social History Tobacco Use [...] Ancillary Procedure Cardiology Cordell Juarez MD [address] [place] [address] [place], [place] [address] (Wo rk) 07/27/2022 Office Visit Cardiology Cordell Juarez MD [address] [place] [place], [place] [address] (Wo rk) documented as of this encounter [...] City/State/ZIP Code Phon [place] [address] Lab 500 [facility] [address] Building, Room 3-580 documented in this encounter Visit Diagnoses Diagnosis Tachycardia with heart rate 100-120 beat s per minute 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
--- OUTSIDE RECORDS SUMMARY | 2022-04-10 10:21 | XMS_ITS | Encounter Summary ---
:2000 Author Organization [place] Address 2450 [facility] 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; Procedure Imaging Center MRI D-TGA (dextro-transposition of great art eries); [address] Chest pain, unspecified type ; [address] Single ventricle with heterotaxia syndro me [place], [place] [address] [place] [address] [phone] [address] (Work) [phone] Social History Tobacco Use Types Packs/Day Years [...] 07/27/2022 Ancillary Procedure Cardiology Cordell Juarez MD [facility]0 [place] [address] (Wo rk) 07/27/2022 Office Visit Cardiology Cordell Juarez MD [facility]0 [place] [address] (Wo rk) documented as of this encounter [...] documented as of this encounter Care Teams Interlibrary Loan Services Librarian Relationship Specialty Start Date End Date Magda Winchester, PCP - General Family Medicine Magnus Zayas, Assigned PCP 11/20/[address] [place] [address] 284 [place] [address] documented as of this encounter
--- OUTSIDE RECORDS SUMMARY | 2022-04-10 10:21 | XMS_ITS | Encounter Summary ---
:2000 Author Organization [place] Address 2450 [facility] [place] [address] Care Team Providers Name Role Phone Magnus Zayas DO Unavailable [phone] Magda Winchester MD Primary Care Provider [...] Ancillary Procedure Cardiology Cordell Juarez MD 2450 [facility] [place], [place] [address] (Wo rk) 07/27/2022 Office Visit Cardiology Cordell Juarez MD [address] [place] [address] (Wo rk) documented as of this encounter Visit Diagnoses Not on filedocumented in this encounter Additional Health Concerns Assessment Noted Time PHQ-9 Depression Total Score: 10 04/01/2019 9:14 AM CD T documented as of this encounter Care Teams Journal Entry Audit Clerk Relationship Specialty Start Date End Date Magda Winchester, PCP - General Family Medicine Magnus Zayas, DO Assigned PCP 11/20/[address] [place] [address] 284 [place], [place] [address] documented as of this encounter
--- OUTSIDE RECORDS SUMMARY | 2022-04-10 10:21 | XMS_ITS | Encounter Summary ---
:2000 Author Organization [place] Address 2450 [facility] [place] [address] Care Team Providers Name Role Phone Magnus Zayas DO Unavailable [phone] Magda Winchester MD Primary Care Provider Reason for Visit Reason Comments Medication Refill Digoxin Oral Tablet 250 MCG Encounter Details Date Type Department Care Team Description 10/03/2021 Refill [facility] Heart LarryShlomo MD Medication Refill Clinic 2450 [facility] (Digoxin Oral Tablet 909 [facility] [address] 250 MCG) [place], [place] [address] [phone] Social History Tobacco Use Types Packs/Day Years [...] Ancillary Procedure Cardiology Cordell Juarez MD [address] [place] [place] [address] [place], [place] [address] (Wo rk) 07/27/2022 Office Visit Cardiology Cordell Juarez MD [address] [place], [place] [address] (Wo rk) documented as of this encounter Visit Diagnoses Diagnosis SVT (supraventricular tachycardia) (H) Other specified cardiac dysrhythmias documented in this encounter Additional Health Concerns Assessment Noted Time PHQ-9 Depression Total Score: 10 04/01/2019 9:14 AM CD T documented as of this encounter Care Teams Dance Costume Designer Relationship Specialty Start Date End Date Magda Winchester, PCP - General Family Medicine Magnus Zayas, DO Assigned PCP 11/20/[address] [place] [address] 284 [place] [address] documented as of this encounter
--- OUTSIDE RECORDS SUMMARY | 2022-04-10 10:21 | XMS_ITS | Encounter Summary ---
:2000 Author Organization [place] Address [facility]0 [facility] [place] [address] Care Team Providers Name Role Phone Magnus Zayas DO Unavailable [phone] Magda Winchester MD Primary Care Provider Encounter Details Date Type Department Care Team Description 11/06/2021 Telephone [facility] Heart LarryShlomo MD Clinic [address] [address] [place] [address] [phone] Social History Tobacco Use Types Packs/Day Years [...] Ancillary Procedure Cardiology Cordell Juarez MD [address]50 [facility] [address] [place], [place] [address] (Wo rk) 07/27/2022 Office Visit Cardiology Cordell Juarez MD [address] [place] [address] [place], [place] [address] (Wo rk) documented as of this encounter Visit Diagnoses Not on filedocumented in this encounter Additional Health Concerns Assessment Noted Time PHQ-9 Depression Total Score: 10 04/01/2019 9:14 AM CD T documented as of this encounter Care Teams Core Cleaner Relationship Specialty Start Date End Date Magda Winchester, PCP - General Family Medicine Magnus Zayas, DO Assigned PCP 11/20/[address] [place] [address] [place], [place] [address] documented as of this encounter
--- OUTSIDE RECORDS SUMMARY | 2022-04-10 10:21 | XMS_ITS | Encounter Summary ---
:2000 Author Organization [place] Address 2450 [facility] [place] [address] Care Team Providers Name Role Phone Magnus Zayas DO Unavailable [phone] Magda Winchester MD Primary Care Provider [...] Cordell Juarez MD 2450 [facility] [address] [place], [place] [address] (Wo rk) 07/27/2022 Office Visit Cardiology Cordell Juarez MD [address] [place], [place] [address] (Wo rk) documented as of this encounter Visit Diagnoses Not on filedocumented in this encounter Additional Health Concerns Assessment Noted Time PHQ-9 Depression Total Score: 10 04/01/2019 9:14 AM CD T documented as of this encounter Care Teams Back Hoe Operator Relationship Specialty Start Date End Date Magda Winchester, PCP - General Family Medicine Magnus Zayas, DO Assigned PCP 11/20/[address] [place] [address] 284 [place], [place] [address] documented as of this encounter
--- OUTSIDE RECORDS SUMMARY | 2022-04-10 10:21 | XMS_ITS | Encounter Summary ---
:2000 Author Organization [place] Address 2450 [facility] [place] [address] Care Team Providers Name Role Phone Magnus Zayas DO Unavailable [phone] Magda Winchester MD Primary Care Provider [...] Cardiology Cordell Juarez MD 2450 [facility] [address] [place], [place] [address] (Wo rk) 07/27/2022 Office Visit Cardiology Cordell Juarez MD [address] [place], [place] [address] (Wo rk) documented as of this encounter Visit Diagnoses Not on filedocumented in this encounter Additional Health Concerns Assessment Noted Time PHQ-9 Depression Total Score: 10 04/01/2019 9:14 AM CD T documented as of this encounter Care Teams Consulting Sales Executive Relationship Specialty Start Date End Date Magda Winchester, PCP - General Family Medicine Magnus Zayas, DO Assigned PCP 11/20/[address] [place] [address] 284 [place], [place] [address] documented as of this encounter
--- OUTSIDE RECORDS SUMMARY | 2022-04-10 10:22 | XMS_ITS | Encounter Summary ---
:2000 Author Organization [place] Address 2450 [facility] [place] [address] Care Team Providers Name Role Phone Magnus Zayas DO Primary Care Provider [phone] Magnus Zayas DO Unavailable [phone] Reason for Referral CV Testing (Routine) - Closed Specialty Diagnoses / Procedures Referred By Contact Refer red To Contact Diagnoses S/P Fontan procedure Bradycardia Cordell Juarez MD Procedures Holter Monitor 48 hour Adult Pediatric C AMB BP MONITORING W/SW >=24 HR, RECORD/SCAN/INTRP/RPT HC HOLTER RECORDING 24 HRS HC HOLTER SCAN 24 HRS [address] [place] 57[address]86 [place], [place] [address] Referral ID Status Reason Start Date Expiration Date Visits Requ ested Visits Authorized [id number] Closed 03/02/2020 03/02/2021 1 1 Reason for [...] 24 HRS HC HOLTER SCAN [address] [address] Referral ID Status Reason Start Date Expiration Date Visits Requ ested Visits Authorized [id number] Closed 02/17/2020 02/16/2021 1 1 Encounter Details Date Type Department Care Team Description 03/02/2020 [facility] [place] Nurse, Ox-Peds [facility] Visit Health/Nurse Explorer Pediatric Cordell Juarez MD [address] [address] (Nurse only Holter Visit Specialty Clinic Mon... Explorer Clinic [facility] [address]th [address] [place] [address] Social History Tobacco Use Types Packs/Day [...] 03/02/20 PATIENT NAME / MRN: Jude Bills [id number] MONITOR NUMBER: [id number] PEDIATRIC HOLTER MONITOR PRODUCT [...] concerns regarding the device, please contact the [facility]'s EKG Lab at or Saturday through Saturday between the hours of 7:00AM and 4:30PM. Please note that this monitor is very sensitive to humidity/moisture and MUST NOT GET WET. Please use caution when in the bathroom to avoid accidentally dropping the device in water. This monitor must be returned in good working order to the [facility] or the [facility]'s EKG Lab / Pediatric Cardiovascular Imaging Department [...] Ancillary Procedure Cardiology Cordell Juarez MD [address] [place], [place] [address] (Wo rk) 07/27/2022 Office Visit Cardiology Cordell Juarez MD [address] [place], [place] [address] (Wo rk) documented as of this encounter [...] documented as of this encounter Care Teams Cyber Incident Analyst Relationship Specialty Start Date End Date Magnus Zayas, PCP - General Student in organized 02/23/20 09/17/[address] education/training program [address] [place] [address] Magnus Zayas, Assigned PCP 02/28/2004/[address] [place] [place] [address] documented as of this encounter
--- OUTSIDE RECORDS SUMMARY | 2022-04-10 10:22 | XMS_ITS | Encounter Summary ---
:2000 Author Organization [place] Address [facility] [place] [address] Care Team Providers Name Role Phone Magnus Zayas DO Primary Care Provider Magnus Zayas DO Unavailable [phone] Reason for Referral CV Testing (Routine) - Closed Specialty Diagnoses / Procedures Referred By Contact Refer red To Contact Diagnoses Palpitations Cordell Juarez MD Procedures Holter Monitor 48 hour Adult Pediatric ZZC AMB BP MONITORING W/SW >=24 HR, RECORD/SCAN/INTRP/RPT ZZHC HOLTER RECORDING 24 HRS ZZHC HOLTER SCAN 24 HRS IA HOLTER RECORDING 24 HRS IA HOLTER SCAN 24 HRS 2450 [facility] MB556 [place] AMB BP MONITORING W/SW >= 24 HR, RECORD/SCAN/INTRP/RPT HOLTER RECORDING 24 HRS HC HOLTER SCAN 24 HRS, [place] [address] Referral ID Status Reason Start Date Expiration Date Visits Requ ested Visits Authorized [id number] Closed 09/09/2020 09/09/2021 1 1 Specialty Diagnoses / Procedures Referred By Contact Refer red To Contact Cordell Juarez M D [facility] B[address] [place], [place] [address] Referral ID Status Reason Start Date Expiration Date Visits Requ ested Visits Authorized Reason for Visit Reason Comments Follow Up 19 year old male with 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 Cardiology Providers you saw during your [...] taking your Metoprolol 7. You may visit [email or web address] to sign up for the vaccine connector [...] monitor. For after hours urgent needs, call [phone] and ask to speak to the Adult Congenital Physician family reunification specialist. Mention Job Code 0401. For emergencies call 911. For any scheduling needs, please call Florinda Robb Procedure Slot Machine Department Floorperson, at [phone] Thank you for your visit today! If you have questions or concerns about today's visit, please call me. Arthur Limon RN, BSN Cardiology Insole Beveler [facility] Physicians Heart [phone] [place] [address] Mail Code 2121CK [place] [address] documented in this encounter Progress Notes Cordell Juarez MD - 09/09/2020 10:00 AM CDT Adult Congenital Cardiology Visit Patient: Jude Bills Date of : 2000 Age: 19 yo Date of Visit: Sep 09, 2020 PCP: Stephen Sauceda Dear Dr. Sauceda, I had the pleasure of seeing your patient, Jude Bills, in the [facility] clinic at [facility] on Sep 09, 2020. 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 He underwent a central shunt, followed by a Fortino procedure and completion of a Fontan procedure at the [facility] in [place]. He had catheter closure of his Fontan fenestration at the [facility] in January 2007.Jude has a history of [...] sildenafil and omeprazole. Jude is living in [place] and looking for a job. 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 Living with girlfriends family in [place]. 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 Denies EtoH, smoking, drug use. Prescription Medications as of 09/09/2020 Rx Number Disp Refills Start End Last Dispensed Date Next Fill Date Owning Pharmacy amoxicillin (AMOXIL) 500 MG capsule 20 capsule 3 04/01/2019 [id number] 3 Sig: Take 4 capsules (2,000 mg) by mouth as needed (one hour prior to dental cleanings) Class: E-Prescribe Route: Oral digoxin (DIGOX) 250 MCG tablet 90 tablet 3 12/31/2019 [facility] [address] [place] [address] [facility] N.E. Sig: Take 1 tablet (250 mcg) by mouth daily Class: E-Prescribe Route: Oral furosemide (LASIX) 20 MG tablet 45 tablet 3 02/17/2020 [facility] [address] [place] [id number] [place] [address] N.E. Sig: Take 0.5 tablets (10 mg) by mouth daily Class: E-Prescribe Route: Oral metoprolol succinate ER (TOPROL-XL) 25 MG 24 hr tablet 45 tablet 3 02/17/2020 [facility] #[address] [place] [address] [facility] N.E. Sig: Take 0.5 tablets (12.5 mg) by mouth daily Class: E-Prescribe Route: Oral montelukast (SINGULAIR) 10 MG tablet 90 tablet 3 02/17/2020 [facility] #[id number] - [place], [facility] [address] [facility] N.E. Sig: Take 1 tablet (10 mg) by mouth daily Class: E-Prescribe Route: Oral omeprazole (PRILOSEC) [address] capsule 90 capsule 3 11/04/2019 [facility] #[id number] - [place], [facility] [facility] 3 Sig: Take 1 capsule (20 mg) by mouth daily Class: E-Prescribe Route: Oral sertraline (ZOLOFT) 25 MG tablet 60 tablet 0 05/25/2020 [facility][id number] - [place], [facility] [address] [facility] N.E. Sig: TAKE 1 TABLET (25 MG) BY MOUTH DAILY IF TOLERATING MEDICINE AFTER 2 WEEKS, CAN INCREASE TO 2 TABLETS (50 MG) DAILY Class: E-Prescribe Notes to Pharmacy: Patient must have follow-up appointment with Dr. Zayas before further refillscan be given. sildenafil (REVATIO) 20 MG tablet 90 tablet 11 11/20/2019 [facility][id number] - [place], [facility] [address] [facility] N.E. Sig: Take 1 tablet (20 mg) by mouth three times daily for pulmonary hypertension. Never use with nitroglycerin, terazosin or doxazosin. Class: E-Prescribe spironolactone (ALDACTONE) 25 MG tablet 90 tablet 3 02/17/2020 [facility][id number] - [place], [facility] [address] [facility] N.E. Sig: Take 1 tablet (25 [...] on 09/09/20 Echo Congenital Adult Status: None [facility] [id number] [id number]^JAVIER^CORDELL^RYAN Study ID: [id number] [facility]'[address] [place] [address] Pediatric Echocardiogram Name: JUDE BILLS Study Date: [...] months with ECG Sincerely Cordell Juarez M.D. Deputy Controller of Pediatrics Pediatric and Adult Congenital Cardiology [facility] Pediatric Cardiology Office [phone] Adult Congenital Cardiology Triage and Scheduling [phone] Answers for HPI/ROS submitted by the patient [...] effects, and when to report to MD hardwood flooring specialist. Patient demonstrated understanding of this information and agreed to call with further questions or concerns. Patient stated he understood all health information given and agreed to call with further questions or concerns. Arthur Limon RN pipe washer Insole Beveler [phone] documented in this encounter Plan of Treatment Upcoming Encounters Date Type Specialty Care Team Description 07/27/2022 Ancillary Procedure Cardiology Cordell Juarez MD 2450 [facility] [place] [address] (Wo rk) 07/27/2022 Office Visit Cardiology JavierCordell blum MD [facility] [address] [address] (Wo rk) Scheduled Referrals Name Type Priority [...] Signature IGG 1,437 610 - 1,616 09/12/2020 [facility] mg/dL 9:24 AM CDT [facility] Specimen Anatomical Collection Method Collection Time Receive d Time (Source) Location / / Volume Laterality Blood specimen 09/09/2020 11:08 1 (specimen) AM CDT 11:11 AM CDT Cordell Juarez MD LAB - BLOOD ORDERABLES Performing Organization Address City/State/ZIP Code Phon e Number [facility] [address] [place] [address] [facility] TSH with free T4 reflex (09/09/2020 11:08 AM CDT) athologist Signature TSH 2.83 0.40 - 4.00 09/09/2020 [facility] mU/L 11:46 AM CDT [facility] Specimen Anatomical Collection Method Collection Time Receive d Time (Source) Location / / Volume Laterality Blood specimen 09/09/2020 11:08 1 (specimen) AM CDT 11:11 AM CDT Cordell Juarez MD LAB - BLOOD ORDERABLES Performing Organization Address City/State/ZIP Code Phon e Number [address] [address] [facility] CBC with platelets differential (09/09/2020 11:08 AM [facility]) [facility] Method Time Signature WBC 5.3 4.0 - 09/09/2020 [facility] 11.0 11:15 AM [place] 10e9/L [facility] RBC Count 5.64 4.4 - 5.9 09/09/2020 [facility] OF 10e12/L 11:15 AM [facility] Hemoglobin 16.3 13.3 - 09/09/2020 [facility] OF 17.7 g/dL 11:15 AM [facility] Hematocrit 49.8 40.0 - 09/09/2020 [facility] OF 53.0 % 11:15 AM [facility] MCV 88 78 - 100 09/09/2020 [facility] 11:15 AM [facility] MCH 28.9 26.5 - 09/09/2020 [facility] OF 33.0 pg 11:15 AM [facility] MCHC 32.7 31.5 - 09/09/2020 [facility] OF 36.5 g/dL 11:15 AM [facility] RDW 12.5 10.0 - 09/09/2020 [facility] OF 15.0 % 11:15 AM [facility] Platelet Count 175 150 - 450 09/09/2020 [facility] OF 10e9/L 11:15 AM [facility] Diff Method Automated 09/09/2020 [facility] 11:15 AM [facility] % Neutrophils 66.6 % 09/09/2020 [facility] OF 11:15 [facility] % Lymphocytes 23.4 % 09/09/2020 [facility] 11:15 [facility] % Monocytes 8.6 % 09/09/2020 [facility] 11:15 [facility] % Eosinophils 0.8 % 09/09/2020 [facility] 11:15 [facility] % Basophils 0.6 % 09/09/2020 [facility] OF 11:15 [facility] % Immature 0.0 % 09/09/2020 [facility] OF Granulocytes 11:15 AM [facility] Nucleated RBCs 0 0 /100 09/09/2020 [facility] OF 11:15 AM [facility] Absolute 3.5 1.6 - 8.3 09/09/2020 [facility] OF Neutrophil 10e9/L 11:15 AM [facility] Absolute 1.2 0.8 - 5.3 09/09/2020 [facility] OF Lymphocytes 10e9/L 11:15 AM [facility] Absolute 0.5 0.0 - 1.3 09/09/2020 [facility] OF Monocytes 10e9/L 11:15 AM [facility] Absolute 0.0 0.0 - 0.7 09/09/2020 [facility] OF Eosinophils 10e9/L 11:15 AM [facility] Absolute 0.0 0.0 - 0.2 09/09/2020 [facility] OF Basophils 10e9/L 11:15 AM [facility] Abs Immature 0.0 0 - 0.4 09/09/2020 [facility] OF Granulocytes 10e9/L 11:15 AM [facility] Absolute 0.0 09/09/2020 [facility] OF Nucleated RBC 11:15 AM [facility] Specimen Anatomical Collection Method Collection Time Receive d Time (Source) Location / / Volume Laterality Blood specimen 09/09/2020 11:08 (specimen) AM CDT 11:11 AM CDT Cordell Juarez MD LAB - BLOOD ORDERABLES Performing Organization Address City/State/ZIP Code Phon e Number [address] [address] [facility] Comprehensive metabolic panel (09/09/2020 11:08 AM CDT) P athologist Signature Sodium 140 133 - 144 09/09/2020 [facility] OF mmol/L 11:46 AM [facility] Potassium 3.8 3.4 - 5.3 09/09/2020 [facility] mmol/L 11:46 AM [facility] Chloride 108 94 - 109 09/09/2020 [facility] mmol/L 11:46 AM [facility] Carbon Dioxide 28 20 - 32 09/09/2020 [facility] mmol/L 11:46 AM [facility] Anion Gap 4 3 - 14 09/09/2020 [facility] mmol/L 11:46 AM [facility] Glucose 96 70 - 99 09/09/2020 [facility] mg/dL 11:46 AM [facility] Urea Nitrogen 19 7 - 30 09/09/2020 [facility] mg/dL 11:46 AM [facility] Creatinine 0.96 0.66 - 09/09/2020 [facility] 1.25 mg/dL 11:46 AM [facility] GFR Estimate >90 >60 09/09/2020 [facility] mL/min/{1. 11:46 AM [facility] 73_m2} [facility] Comment: Non GFR Calc Starting 06/03/2018, serum creatinine ba sed estimated GFR (eGFR) will be calculated using the Chronic Kidney Dise [facility] Epidemiology Collaboration (CKD-EPI) equation. GFR Estimate If >90 >60 mL/min/{1.73_m2} 09/09/2020 11 :46 AM SOL[employer] OF [employer] [facility] Comment: GFR Calc Starting 06/03/2018, serum creatinine ba sed estimated GFR (eGFR) will be calculated using the Chronic Kidney Dise [facility] Epidemiology Collaboration (CKD-EPI) equation. Calcium 9.6 8.5 - 10.1 mg/dL 09/09/2020 11:46 AM [facility] Bilirubin Total 1.1 0.2 - 1.3 mg/dL 09/09/2020 11:46 A M [facility] Albumin 4.6 3.4 - 5.0 g/dL 09/09/2020 11:46 AM UNIVE RSITY [facility] Protein Total 8.2 6.8 - 8.8 g/dL 09/09/2020 11:46 AM U NIVERSITY [facility] Alkaline Phosphatase 72 40 - 150 U/L 09/09/2020 11:46 AM [facility] ALT 25 0 - 70 U/L 09/09/2020 11:46 AM UNIVERSIT Y OF CDT [facility] AST 15 0 - 45 U/L 09/09/2020 11:46 AM UNIVERSIT Y OF CDT [facility] Specimen Anatomical Collection Method Collection Time Receive d Time (Source) Location / / Volume Laterality Blood specimen 09/09/2020 11:08 1 (specimen) AM CDT 11:11 AM CDT Cordell Juarez MD LAB - BLOOD ORDERABLES Performing Organization Address City/State/ZIP Code Phon e Number [address] [address] [facility] HOLTER MONITOR 48 HOUR APPLICATION SCAN ANALYSIS AND PROVIDER INTERPRETATION (09/09/2020 10:58 AM CDT) Anatomical Region Laterality Modality Other Specimen (Source) Anatomical Collection Method Collection Time Re ceived Time Location / / Volume Laterality 09/09/2020 10:56 AM CDT Cordell Juarez MD CV CARDIAC SERVICES ORDERABL ES EKG 12-lead, tracing only (Same Day) (09/09/2020 9:37 AM CDT) [facility] gist Method Time Signature Interpretation ECG Click View RADIOLOGY Image link RESULTS to view waveform and result Specimen (Source) Anatomical Collection Method Collection Time Re ceived Time Location / / Volume Laterality 09/09/2020 9:37 AM CDT Cordell Juarez MD ECG ORDERABLES Performing Organization Address City/[facility]/ZIP Code Phon e Number RADIOLOGY RESULTS documented in this encounter Visit Diagnoses Diagnosis 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 - Primary Transposition of great vessels, double o utlet right ventricle Palpitations documented in this encounter Additional Health Concerns Assessment Noted Time PHQ-9 Depression Total Score: 10 04/01/2019 9:14 AM CD T documented as of this encounter Care Teams Animal Damage Control Agent Relationship Specialty Start Date End Date Magnus Zayas, PCP - General Student in organized 02/23/20 09/17/[address] education/training program [address] [place] [address] Magnus Zayas, Assigned PCP 02/28/2004/[address] [address] documented as of this encounter
--- OUTSIDE RECORDS SUMMARY | 2022-04-10 10:22 | XMS_ITS | Encounter Summary ---
:2000 Author Organization [place] Address [address] [place] [address] Care Team Providers Name Role Phone Magnus Zayas DO Primary Care Provider [phone] Magnus Zayas DO Unavailable Reason for Visit Reason Onset Date Comments Refill Request 04/04/2020 sertraline (ZOLOFT) 25 MG tablet Encounter Details Date Type Department Care Team Description 04/04/2020 Refill [facility] Clinic LogCeleste milan MD Refill Request Internal Medicine [address] [place] [address] (sertr timmy (ZOLOFT) [address] MG tablet) [address] [place] [address] (Wo rk) [address] [phone] Social History Tobacco Use Types Packs/Day Years [...] Ancillary Procedure Cardiology Cordell Juarez MD [address] [facility] [address] [place], [place] [address] (Wo rk) 07/27/2022 Office Visit Cardiology Cordell Juarez MD [address] [place], [place] 7[address] (Wo rk) documented as of this encounter Visit Diagnoses Diagnosis Moderate episode of recurrent major depr essive disorder (H) documented in this encounter Additional Health Concerns Assessment Noted Time PHQ-9 Depression Total Score: 10 04/01/2019 9:14 AM CD T documented as of this encounter Care Teams Medical Associate Relationship Specialty Start Date End Date Magnus Zayas, PCP - General Student in organized 02/23/20 09/17/[address] education/training program [address] [place], [place] [address] Magnus Zayas, Assigned PCP 02/28/2004/[address] [place], [place] [address] documented as of this encounter
--- OUTSIDE RECORDS SUMMARY | 2022-04-10 10:22 | XMS_ITS | Encounter Summary ---
:2000 Author Organization [place] Address 2450 [facility] [place] [address] Care Team Providers Name Role Phone Clinic, [facility] Primary Care Provider [phone] Reason for Referral CV Testing (Routine) - Closed Specialty Diagnoses / Procedures Referred By Contact Refer red To Contact Diagnoses Chest pain Randa Umanzor MD Procedures Holter Monitor 48 hour Adult/Peds C AMB BP MONITORING W/SW >=24 HR, RECORD/SCAN/INTRP/RPT HC HOLTER RECORDING 24 HRS HC HOLTER SCAN 24 HRS [address] [address] Referral ID Status Reason Start Date Expiration Date Visits Requ ested Visits Authorized [id number] Closed 01/11/2020 01/10/2021 1 1 Reason for Visit CV Testing (Routine) - Closed Specialty Diagnoses / Procedures Referred By Contact Refer red To Contact Diagnoses Chest pain Randa Umanzor MD Procedures Holter Monitor 48 hour Adult/Peds C AMB BP MONITORING W/SW >=24 HR, RECORD/SCAN/INTRP/RPT HC HOLTER RECORDING 24 HRS HC HOLTER SCAN 24 HRS 2450 [facility] [address] [place] [address] Referral ID Status Reason Start Date Expiration Date Visits Requ ested Visits Authorized [id number] Closed 01/11/2020 01/10/2021 1 1 Encounter Details Date Type Department Care Team Description 01/11/2020 [facility] Chest pain Sav[facility] 2450 [facility] M654 2450 [place] [address] [place], [place] [phone] (Wo rk) [address] [phone] Social History Tobacco Use Types Packs/Day Years [...] Cordell Juarez MD [facility] BR[address] T[address] [place] [address] (Wo rk) 07/27/2022 Office Visit Cardiology Cordell Juarez MD 2450 [facility] [address] [place] [address] (Wo rk) documented as of this encounter Procedures Procedure Name Priority Date/Time Associated Diagnosis Comme [facility] HOLTER MONITOR 48 HOUR Routine 01/11/2020 9:26 [...] documented as of this encounter Care Teams Forge Shop Machine Repairer Relationship Specialty Start Date End Date Clinic, [facility] PCP - General 06/25/19 02/22/20 1400 [place] [address] documented as of this encounter
--- OUTSIDE RECORDS SUMMARY | 2022-04-10 10:22 | XMS_ITS | Encounter Summary ---
:2000 Author Organization [place] Address [address] [place] [address] Care Team Providers Name Role Phone Magnus Zayas DO Primary Care Provider [phone] Magnus Zayas DO Unavailable [phone] Encounter Details Date Type Department Care Team Description 03/01/2020 Telephone [facility] Primary Care Magnus Zayas, Clinic DO [address] Floor 284 [place], [place] [phone] [place] [address] (Wo rk) Social History Tobacco [...] Ancillary Procedure Cardiology Cordell Juarez MD [address] [place], [place] [address] (Wo rk) 07/27/2022 Office Visit Cardiology Cordell Juarez MD [address] [place], [place] [address] (Wo rk) documented as of this encounter Visit Diagnoses Not on filedocumented in this encounter Additional Health Concerns Assessment Noted Time PHQ-9 Depression Total Score: 10 04/01/2019 9:14 AM CD T documented as of this encounter Care Teams Stove Cleaner Relationship Specialty Start Date End Date Magnus Zayas, PCP - General Student in organized 02/23/20 09/17/[address] education/training program 284 [place] [address] Magnus Zayas, Assigned PCP 02/28/2004/[address] [place] [address] documented as of this encounter
--- OUTSIDE RECORDS SUMMARY | 2022-04-10 10:22 | XMS_ITS | Encounter Summary ---
:2000 Author Organization [place] Address [facility] [place] [address] Care Team Providers Name Role Phone Magnus Zayas DO Primary Care Provider [phone] Magnus Zayas DO Unavailable [phone] Encounter Details Date Type Department Care Team [...] 07/27/2022 Ancillary Procedure Cardiology Cordell Juarez MD [facility] [address] [place] [address] (Wo rk) 07/27/2022 Office Visit Cardiology Cordell Juarez MD [address] [place] [address] (Wo rk) documented as of this encounter Visit Diagnoses Not on filedocumented in this encounter Additional Health Concerns Assessment Noted Time PHQ-9 Depression Total Score: 10 04/01/2019 9:14 AM CD T documented as of this encounter Care Teams Flash Ranging Crewmember Relationship Specialty Start Date End Date Magnsu Zayas, PCP - General Student in organized 02/23/20 09/17/[address] education/training program 284 [place], [place] [address] Magnus Zayas, Assigned PCP 11/20/[address] [place], [place] [address] documented as of this encounter
--- OUTSIDE RECORDS SUMMARY | 2022-04-10 10:22 | XMS_ITS | Encounter Summary ---
:2000 Author Organization [place] Address [facility] [place] [address] Care Team Providers Name Role Phone Magnus Zayas DO Primary Care Provider Magnus Zayas DO Unavailable [phone] Encounter Details Date Type Department Care Team Description 11/23/2020 Telephone [facility] Cordell Lee MD Pediatric Specialty [facility] [address] [place] [address] 2450 [place] [address] [facility] [place] [phone] Social History Tobacco Use Types Packs/Day [...] that he understands information provided. Arthur Limon, supplier diversity director RN Community Aide [phone] Telephone Encounter - Cherise Herrera - 11/23/2020 11:[address] [facility] Phone Message May a detailed message be left on voicemail: yes Reason for Call: Patient was calling to schedule an appt to complete physical form for [employer], leaving on 02/06. Dr. Juarez does not have anything available until March. Patient is seen at [facility] with Dr. Juarez, unsure if patient will need to call that office. Please call patient back at [phone]. documented in this encounter Plan of Treatment Upcoming Encounters Date Type Specialty Care Team Description 07/27/2022 Ancillary Procedure Cardiology Cordell Juarez MD 2450 [facility]556 [place] [address] (Wo rk) 07/27/2022 Office Visit Cardiology Cordell Juarez MD [address] [place] [address] (Wo rk) documented as of this encounter Visit Diagnoses Not on filedocumented in this encounter Additional Health Concerns Assessment Noted Time PHQ-9 Depression Total Score: 10 04/01/2019 9:14 AM CD T documented as of this encounter Care Teams Electrician Control Equipment Relationship Specialty Start Date End Date Magnus Zayas, PCP - General Student in organized 02/23/20 09/17/[address] education/training program 284 [place], [place] [address] Magnus Zayas, Assigned PCP 11/20/[address] [place] [address] documented as of this encounter
--- OUTSIDE RECORDS SUMMARY | 2022-04-10 10:22 | XMS_ITS | Encounter Summary ---
:2000 Author Organization [address] [place] [address] Care Team Providers Name Role Phone Arcadio, Ana Groesbeck Primary Care Provider [phone] Magnus Zayas DO Primary Care Provider [phone] Magnus Zayas DO Unavailable [phone] Reason for Visit Reason Comments RECHECK S/P Fontan procedure Encounter Details Date Type Department Care Team Description 01/13/2020 Office Visit [facility] Cordell Juarez Brad ycardia (Primary Dx); Pediatric Specialty S/P Fontan procedure Clinic [address] [facility] [address] [place] [address] [phone] Social History Tobacco Use Types Packs/Day Years [...] visit, please call [facility] at [phone] or [facility] Nurse Line [phone] For after hours urgent needs call [phone] and ask to speak to the Pediatric Cardiology Physician personal secretary. For emergencies call [phone]. documented in this encounter Progress Notes Cordell Juarez MD - 01/13/2020 2:00 PM CDT Pediatric Cardiology Visit Patient: Jude Bills Date of : 2000 Age: 19 yo Date of Visit: Jan 13, 2020 PCP: Stephen Sauceda Dear Dr. Sauceda, I had the pleasure of seeing your patient, Jude Bills, in the Pediatric Cardiology Clinic at [facility] on Jan 13, 2020. 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 He had catheter closure of his Fontan fenestration at the [facility] in January 2007. 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 He is not yet exercising much [...] June 2019 with influenza SH:Jude is attending [employer]mitt[employer] and living in an apartment with a roommate. Planning on goingto [facility] or nursing school. Prescription Medications as of 01/13/2020 Rx Number Disp Refills Start End Last Dispensed Date Next Fill Date Owning Pharmacy acetaminophen (TYLENOL) 500 MG tablet Sig: Take 500 mg by mouth every 8 hours as needed for mild pain Class: Historical Route: Oral amoxicillin (AMOXIL) 500 MG capsule 20 capsule 3 04/01/2019 [facility] [place] [address] Sig: Take 4 capsules (2,000 mg) by mouth as needed (one hour prior to dental cleanings) Class: E-Prescribe Route: Oral digoxin (DIGOX) 250 MCG tablet 90 tablet 3 12/31/2019 [facility] [address] [place] [address] N.E. Sig: Take 1 tablet (250 mcg) by mouth daily Class: E-Prescribe Route: Oral furosemide (LASIX) 20 MG tablet 90 tablet 3 04/01/2019 [facility] [address] [place] [address] Sig: Take 1 tablet (20 mg) by mouth daily Class: E-Prescribe Route: Oral metoprolol succinate ER (TOPROL-XL) 25 MG 24 hr tablet 30 tablet 11 03/24/2019 [facility] [address] [place] [address] Sig: TAKE ONE TABLET BY MOUTH ONE TIME DAILY Class: E-Prescribe montelukast (SINGULAIR) 10 MG tablet 08/28/2018 Sig: Take 10 mg by mouth At Bedtime Class: Historical Route: Oral omeprazole (PRILOSEC) [address] capsule 90 capsule 3 11/04/2019 [facility] [address] [place] [address] Sig: Take 1 capsule (20 mg) by mouth daily Class: E-Prescribe Route: Oral polyethylene glycol (MIRALAX) 17 GM/SCOOP powder 510 g 0 01/11/2020 02/10/2020 Sig: Take 17 g (1 capful) by mouth daily Class: Local Print Route: Oral sildenafil (REVATIO) 20 MG tablet 90 tablet 11 11/20/2019 [facility] [address] [place] [address] N.E. Sig: Take 1 tablet (20 mg) by mouth three times daily for pulmonary hypertension. Never use with nitroglycerin, terazosin or doxazosin. Class: E-Prescribe spironolactone (ALDACTONE) 25 MG tablet 30 tablet 0 12/29/2019 [facility] [place] - [address] [facility] N.E. Sig: TAKE ONE TABLET BY MOUTH ONE TIME DAILY Class: E-Prescribe valACYclovir (VALTREX) 1000 mg tablet 8 tablet 0 12/28/2019 01/01/2020 [place], [place] - [address] Sig: Take 1 tablet (1,000 [...] February as planned. Sincerely Cordell Juarez M.D. Spa Receptionist of Pediatrics Pediatric and Adult Congenital Cardiology [facility] Pediatric Cardiology Office [phone] Adult Congenital Cardiology Triage and Scheduling [phone] documented in this encounter Nursing Notes Kim [...] Ancillary Procedure Cardiology Cordell Juarez MD [address] [place] [address] (Wo rk) 07/27/2022 Office Visit Cardiology LarryCordell MD [address] [place] [address] (Wo rk) documented as of this encounter Visit Diagnoses Diagnosis Bradycardia - Primary Other specified cardiac dysrhythmias S/P Fontan procedure Other postprocedural status documented in this encounter Additional Health Concerns Assessment Noted Time PHQ-9 Depression Total Score: 10 04/01/2019 9:14 AM CD T documented as of this encounter Care Teams Tool Designer Relationship Specialty Start Date End Date Clinic, [facility] PCP - General 06/25/19 02/22/[address] [place] [address] Magnus Zayas, PCP - General Student in organized 02/23/20 09/17/[address] education/[place] [address] program Magnus Zayas, Assigned PCP 02/28/2004/[address] [place] [address] documented as of this encounter
--- OUTSIDE RECORDS SUMMARY | 2022-04-10 10:22 | XMS_ITS | Encounter Summary ---
:2000 Author Organization [place] Address [address] [place] [address]. [place] [address] Care Team Providers Name Role Phone [facility], [facility] Primary Care Provider [phone] Encounter Details Date Type Department Care Team [...] 07/27/2022 Ancillary Procedure Cardiology Cordell Juarez MD [facility] [place], [place] [address] (Arleen valdes) 07/27/2022 Office Visit Cardiology Cordell Juarez MD [facility] [place], [place] [address] (Wo rk) documented as of this encounter Visit Diagnoses Not on filedocumented in this encounter Additional Health Concerns Assessment Noted Time PHQ-9 Depression Total Score: 10 04/01/2019 9:14 AM CD T documented as of this encounter Care Teams Chemistry Lecturer Relationship Specialty Start Date End Date [facility], [facility] PCP - General 06/25/19 02/22/20 [address] [id number] documented as of this encounter
--- OUTSIDE RECORDS SUMMARY | 2022-04-10 10:22 | XMS_ITS | Encounter Summary ---
:2000 Author Organization [place] Address [facility] [place] [address] Care Team Providers Name Role Phone Magnus Zayas DO Primary Care Provider [phone] Magnus Zayas DO Unavailable [phone] Encounter Details Date Type Department Care Team [...] 07/27/2022 Ancillary Procedure Cardiology Cordell Juarez MD [facility] [address] [place], [place] [address] (Wo rk) 07/27/2022 Office Visit Cardiology Cordell Juarez MD [address] [place] [address] (Wo rk) documented as of this encounter Visit Diagnoses Not on filedocumented in this encounter Additional Health Concerns Assessment Noted Time PHQ-9 Depression Total Score: 10 04/01/2019 9:14 AM CD T documented as of this encounter Care Teams Tax Manager Relationship Specialty Start Date End Date Magnus Zayas, PCP - General Student in organized 02/23/20 09/17/[address] education/training program [address] [place], [place] [address] Magnus Zayas, Assigned PCP 02/28/2004/[address] [place] [address] documented as of this encounter
--- OUTSIDE RECORDS SUMMARY | 2022-04-10 10:22 | XMS_ITS | Encounter Summary ---
:2000 Author Organization [place] Address [facility] [place] [address] Care Team Providers Name Role Phone Magnus Zayas DO Primary Care Provider [phone] Magnus Zayas DO Unavailable [phone] Encounter Details Date Type Department Care Team [...] with No / Unsure 07/06/2020 1:14 PM INFORMATION SYSTEMS SECURITY DEVELOPER someone who was confirmed or suspected to have Coronavirus / COVID-19? documented as of this encounter Plan of Treatment Upcoming Encounters Date Type Specialty Care Team Description 07/27/2022 Ancillary Procedure Cardiology Cordell Juarez MD [address] [place] [address] [address] [place] [address] (Wo rk) 07/27/2022 Office Visit Cardiology Cordell Juarez MD [address] [place] [address] [address] [place] [address] (Wo rk) documented as of this encounter Visit Diagnoses Not on filedocumented in this encounter Additional Health Concerns Assessment Noted Time PHQ-9 Depression Total Score: 10 04/01/2019 9:14 AM CD T documented as of this encounter Care Teams Paper Coater Relationship Specialty Start Date End Date Magnus Zayas, PCP - General Student in organized 02/23/20 09/17/[address] education/training program 284 [place], [place] [address] Magnus Zayas, Assigned PCP 02/28/2004/[address] [place] [address] documented as of this encounter
--- OUTSIDE RECORDS SUMMARY | 2022-04-10 10:22 | XMS_ITS | Encounter Summary ---
:2000 Author Organization [place] Address [address] [facility] [place] [address] Care Team Providers Name Role Phone Magnus Zayas DO Primary Care Provider Magnus Zayas DO Unavailable [phone] Reason for Referral CV Testing (Routine) - Closed Specialty Diagnoses / Procedures Referred By Contact Refer red To Contact Diagnoses 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) Cordell Juarez MD Procedures Cardiopulmonary Stress Test - Adult [address] [facility] [address] [place], [place] [address] Referral ID Status Reason Start Date Expiration Date Visits Requ ested Visits Authorized [id number] Closed 03/10/2021 03/10/2022 1 1 V Testing [...] DOPPLER ECHO COLOR FLOW VELOCITY MAP 2450 [facility] [address] ZZHC STATISTIC IV PUSH SINGL E INITIAL SUBSTANCE WI DOPPLER ECHO PULSED, COMPLETE WI DOPPLER ECHO COLOR FLOW VELOCITY MAP WI ECHO XTHORACIC,NEHEMIAS ANOM,COMPLETE WI ECHO CONGENITAL W/O CONTRAST HC DOPPLER ECHO PULSED, [place] [address] HC DOPPLER ECHO COLOR FLOW V ELOCITY MAP HC STATISTIC IV PUSH SINGLE INITIAL SUBSTANCE HC ECHO CONGENITAL ANOM W/CONTRAST HC ECHO CONGENITAL ANOM W/O CONTRAST Referral ID Status Reason Start Date Expiration Date Visits Requ ested Visits Authorized [id number] Closed 03/10/2021 03/10/2022 1 1 Specialty Diagnoses / Procedures Referred By Contact Refer red To Contact Cordell Juarez M D [address] [place] [address] [address] [place], [place] [address] Referral ID Status Reason Start Date Expiration Date Visits Requ ested Visits Authorized Reason for Visit Reason Comments Follow Up 21 year old male with 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 Encounter Details Date Type Department Care Team Description 03/10/2021 Office Visit [facility] Cordell Juarez D-TG A (dextro- transposition of great arteries) (Primary Dx); Heart Clinic 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 [address] [facility] [address] [place], [place] [address] [place], [place] [phone] (Wo rk) Social History Tobacco Use Types [...] Congenital and Cardiovascular Genetics Clinic at the [facility]. Cardiology Providers you saw during your [...] MSN, RN, CNL Florinda Robb (Scheduling) Nurse Mechanics Handyman Clinic Porter Sample Case Adult Congenital and CV Genetics Adult Congenital and CV Genetic [facility] Heart [facility] Heart Care (P) [phone] (P) [phone] [email or web address] (F) [phone] For after hours urgent needs, call [phone] and ask to speak to the Adult Congenital Physician database administration associate. Mention Job Code 0401. For emergencies call 911. [facility] Heart [facility] Mail Code [id number] [id number] documented in this encounter Progress Notes Cordell Juarez MD - 03/10/2021 3:30 PM CDT Adult Congenital Cardiology Visit Patient: Jude Bills Date of : 2000 Age: [age] year old Date of Visit: Mar 10, 2021 PCP: Magnus Zayas, Dear Dr. Zayas, I had the pleasure of seeing your patient, Jude Bills, in the ACHD clinic at the [facility] on Mar 10, 2021. 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 He had catheter closure of his Fontan fenestration at the [facility] in January 2007. 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 Review of Systems: A comprehensive review of [...] the assessment and plan. Isidoro Hanson MD Shuttle Operator I, Cordell Juarez MD, saw this patient with the fellow and agree with the findings and plan of care as documented in this note.I have reviewed this patient's history, examined the patient and reviewed relevant laboratory findings and diagnostic testing. I have discussed the plan of care with the patient at the time of this visit. Cordell Juarez M.D. International Tax Manager of Pediatrics Pediatric and Adult Congenital Cardiology [facility] Pediatric Cardiology Office [phone] Adult Congenital Cardiology Triage and Scheduling [phone] CC: Jude Marquis René YER INSECTICIDE documented in this encounter Nursing Notes Carmelo [...] concerns. Chuyita Wren, MSN, RN, CNL Cardiology Mechanics Handyman [facility] Physicians Heart [phone] documented in this encounter Plan of Treatment Upcoming Encounters Date Type Specialty Care Team Description 07/27/2022 Ancillary Procedure Cardiology Cordell Juarez MD [address] [place] [address] (Wo rk) 07/27/2022 Office Visit Cardiology Cordell Juarez MD [address] [place] [address] (Wo rk) Scheduled Referrals Name Type Priority [...] PM CDT Narrative 09/26/2021 1:22 PM CDT [id number]^JAVIER^CORDELL^RYAN ? Study ID: [id number] ?[facility] ?[facility] ?[address] ?[place] [address] ? Pediatric Echocardiogram Name: RENÉJUDE Study Date: [...] note might be different from the original. [id number]^JAVIER^CORDELL^RYAN Study ID: [id number] [facility] [address] [address] Pediatric Echocardiogram Name: JUDE BILLS Study Date: 09/26/2021 12:26 PM Patient Location: [facility] Age: 21 yrs : 2000 BP: [...] VO2MAX 42.7 Max 22,518 CARPULSTRPH1 3 mins [id number] 0 sec CARPULSTRPH1 83 bpm CARPULBPPH1 125/85 mmHg CARPULSTRPH1 95 % SpO2 CARPULSTRPH2 6 mins [id number] 0 sec CARPULSTRPH2 96 bpm CARPULBPPH2 130/80 mmHg CARPULSTRPH2 94 % SpO2 CARPULSTRPH3 9 mins [id number] 0 sec CARPULSTRPH3 120 bpm CARPULBPPH3 130/77 mmHg CARPULSTRPH3 94 % SpO2 CARPULSTRPH4 12 mins [id number] 0 sec CARPULSTRPH4 135 bpm CARPULBPPH4 122/75 mmHg CARPULSTRPH4 94 % SpO2 CARPULSTRPH5 12 mins [id number] 37 sec CARPULSTRPH5 162 bpm CARPULBPPH5 139/69 mmHg CARPULSTRPH5 93 % SpO2 CARPULSTRPB1 1 mins [id number] 0 sec CARPULSTRPHB1 139 bpm CARPULBPPHB1 125/69 mmHg CARPULSTRPHB1 93 % SpO2 CARPULSTRPHB2 3 mins [id number] 0 sec CARPULSTRPHB2 124 bpm CARPULBPPHB2 120/72 mmHg CARPULSTRPHB2 94 % SpO2 CARPULSTRPHB3 5 mins [id number] 0 sec CARPULSTRPHB3 97 bpm CARPULBPPHB3 118/80 mmHg CARPULSTRPHB3 96 % SpO2 Max 29.50 ml/kg/m in Predicted 42.70 ml/kg/m in Percent 69 % RER 1.05 VE/VCO2 [place] 28.82 CARPULANEROBICTHRES 23.60 ml/kg/m in CARPULANAEROBICTHRESPERDICTED 55.0 [...] e Number [facility] CORE/PROT/ENDO [place] [address] Core/Prot/Endo [address] [facility] [address] Building, Room 3-580 INR (09/26/2021 10:25 AM CDT) P athologist Signature INR 1.13 0.85 - 1.15 09/26/2021 [facility] 11:01 AM CDT Specimen Anatomical Collection Method / Collection Time Recei dipesh Time (Source) Location / Volume Laterality Blood STRUCTURE OF RIGHT Venipuncture / 09/26/2021 10:25 05/2022 UPPER LIMB / Unknown AM CDT 10:42 AM CDT Unknown Cordell Juarez MD LAB - BLOOD ORDERABLES Performing Organization Address City/State/ZIP Code Phon e Number [facility] [place] [address] Lab 500 [facility], Room 3-580 (ABNORMAL) Comprehensive metabolic [...] and gender (Kristin et al., NE, DOI: 10.1056/YZIBrg0953779) Specimen Anatomical Collection Method / Collection Time Recei dipesh Time (Source) Location / Volume Laterality Blood STRUCTURE OF RIGHT Venipuncture / 09/26/2021 10:25 05/2022 UPPER LIMB / Unknown AM CDT 10:44 AM CDT Unknown Cordell Juarez MD LAB - BLOOD ORDERABLES Performing Organization Address City/State/ZIP Code [place] [address] Lab [address] [facility] [address] [facility], Room 3-580 (ABNORMAL) TSH with free T4 [...] City/State/ZIP Code Phon [place] [address] Lab [address] [facility] [address] Building, Room 3-580 EKG 12-lead, tracing only (Same Day) (03/10/2021 3:26 PM CDT) Component Value Ref Range Test Analysis Performed Pathologis t Method Time At Signature Systolic Blood mmHg RADIOLOGY Pressure RESULTS Diastolic Blood mmHg RADIOLOGY Pressure RESULTS Ventricular Rate 54 BPM RADIOLOGY RESULTS Atrial Rate 54 BPM RADIOLOGY RESULTS WI Interval 172 ms RADIOLOGY RESULTS QRS Duration 100 ms RADIOLOGY RESULTS QT 390 ms RADIOLOGY RESULTS QTc 369 ms RADIOLOGY RESULTS P Quinton 10 degrees RADIOLOGY RESULTS R AXIS 268 degrees RADIOLOGY RESULTS T Quinton 97 degrees RADIOLOGY RESULTS Interpretation Sinus bradycardia RADIOLO GY ECG Right superior axis deviation RESULTS Incomplete right bundle branch block Right ventricular hypertrophy with repolarization abnormalit y T wave abnormality, consider lateral ischemia Abnormal ECG When compared with ECG of 09-SEP-2020 09:37, No significant change was found Confirmed by MD MELLISA, GM ([id number]) on 03/13/2021 2:50:08 PM Specimen Anatomical Collection [...] documented as of this encounter Care Teams Stave Bolt Equalizer Relationship Specialty Start Date End Date Magnus Zayas, PCP - General Student in organized 02/23/20 09/17/[address] education/training program 284 [place] [address] Magnus Zayas, Assigned PCP 11/20/[address] [place] [address] documented as of this encounter
--- OUTSIDE RECORDS SUMMARY | 2022-04-10 10:22 | XMS_ITS | Encounter Summary ---
:2000 Author Organization [place] Address [facility]0 [place] [address] Care Team Providers Name Role Phone Magnus Zayas DO Primary Care Provider Magnus Zayas DO Unavailable [phone] Encounter Details Date Type Department Care Team [...] Cardiology Cordell Juarez MD Critical [facility] hospital0 [address] [place], [place] [address] (Wo rk) 07/27/2022 Office Visit Cardiology Cordell Juarez MD [address] [place] [address] (Wo rk) documented as of this encounter Visit Diagnoses Not on filedocumented in this encounter Additional Health Concerns Assessment Noted Time PHQ-9 Depression Total Score: 10 04/01/2019 9:14 AM CD T documented as of this encounter Care Teams Private Branch Exchange Service Advisor Relationship Specialty Start Date End Date Magnus Zayas, PCP - General Student in organized 02/23/20 09/17/[address] education/training program 284 [place], [place] [address] Magnus Zayas, Assigned PCP 02/28/2004/[address] [place] [address] documented as of this encounter
--- OUTSIDE RECORDS SUMMARY | 2022-04-10 10:22 | XMS_ITS | Encounter Summary ---
:2000 Author Organization [place] Address [facility] [place] [address] Care Team Providers Name Role Phone Magnus Zayas DO Primary Care Provider Magnus Zayas DO Unavailable [phone] Reason for Visit CV Testing (Routine) - Closed Specialty Diagnoses / Procedures Referred By Contact Refer red To Contact Diagnoses Palpitations Cordell Juarez MD Procedures Holter Monitor 48 hour Adult Pediatric [facility] AMB BP MONITORING W/SW >=24 HR, RECORD/SCAN/INTRP/RPT [facility] HOLTER RECORDING 24 HRS [facility] HOLTER SCAN 24 HRS WI HOLTER RECORDING 24 HRS WI HOLTER SCAN 24 HRS 2450 [facility] [address] [place] AMB BP MONITORING W/SW >= 24 HR, RECORD/SCAN/INTRP/RPT HOLTER RECORDING 24 HRS HC HOLTER SCAN 24 HRS, [place] [address] Referral ID Status Reason Start Date Expiration Date Visits Requ ested Visits Authorized [id number] Closed 09/09/2020 09/09/2021 1 1 Encounter Details Date Type Department Care Team Description 09/09/2020 Ancillary Procedure [facility] Cordell Juarez, Palpitations Heart Clinic Marie DUPREE 909 [facility] 24[address] [facility] [address] [facility] [place] [address] [phone] (Wo rk) Social History Tobacco Use Types [...] Ancillary Procedure Cardiology Cordell Juarez MD [address] [place] [id number] (Wo rk) 07/27/2022 Office Visit Cardiology Cordell Juarez MD [address] [place] [id number] (Wo rk) documented as of this encounter [...] documented as of this encounter Care Teams Systems Support Engineer Relationship Specialty Start Date End Date Magnus Zayas, PCP - General Student in organized 02/23/20 09/17/[address] education/training program 284 [place], [place] [address] Magnus Zayas, Assigned PCP 02/28/2004/[address] [place], [place] [address] documented as of this encounter
--- OUTSIDE RECORDS SUMMARY | 2022-04-10 10:22 | XMS_ITS | Encounter Summary ---
:2000 Author Organization [place] Address [address] [place] [address]. [place] [address] Care Team Providers Name Role Phone Magnus Zayas DO Primary Care Provider [phone] Magnus Zayas DO Unavailable [phone] Reason for Visit CV Testing (Routine) - Closed Specialty Diagnoses / Procedures Referred By Contact Refer red To Contact Diagnoses S/P Fontan procedure Bradycardia Cordell Juarez MD Procedures Holter Monitor 48 hour Adult Pediatric C AMB BP MONITORING W/SW >=24 HR, RECORD/SCAN/INTRP/RPT HC HOLTER RECORDING 24 HRS HC HOLTER SCAN [address] [place] [address] 7759 4 Referral ID Status Reason Start Date Expiration Date Visits Requ ested Visits Authorized [id number] Closed 03/02/2020 03/02/2021 1 1 Encounter Details Date Type Department Care Team Description 03/02/2020 Ancillary [facility] Cordell Juarez, S/P Fontan procedure; Procedure [facility] [address] [place] [address] [facility] [address] 12th Floor [address] [place] [address] [place], [place] (Work) [address] [phone] Social History Tobacco Use Types Packs/Day Years [...] Cardiology Cordell Juarez MD [facility] [address] 825714 (Wo rk) 07/27/2022 Office Visit Cardiology oCrdell Juarez MD [facility] [place] [address] [address] (Wo rk) documented as of this encounter [...] as of this encounter Care Teams Supervisor Delivery Department Relationship Specialty Start Date End Date Magnus Zayas, PCP - General Student in organized 02/23/20 09/17/21 DO health care [address] [place] [address] education/training program 284 [place], [place] [phone] Magnus Zayas, Assigned PCP 02/28/2004/[address] [place], [place] [address] documented as of this encounter
--- OUTSIDE RECORDS SUMMARY | 2022-04-10 10:22 | XMS_ITS | Encounter Summary ---
:2000 Author Organization [place] Address [facility] [place] [address] Care Team Providers Name Role Phone Magnus Zayas DO Primary Care Provider Magnus Zayas DO Unavailable [phone] Reason for Visit Reason Comments Medication Refill Encounter Details Date Type Department Care Team Description 01/03/2021 Refill [facility] Cordell Juarez MD Medication Refill [facility] [address] [place] [address] [place] [address] [facility] [address] [place] [address] [place] [address] Social History Tobacco Use Types [...] Cordell Juarez MD [address] [place] [address] (Wo rk) 07/27/2022 Office Visit Cardiology Larry, Cordell skelton MD [address] [place] [address] (Wo rk) documented as of this encounter Visit Diagnoses Diagnosis SVT (supraventricular tachycardia) (H) Other specified cardiac dysrhythmias documented in this encounter Additional Health Concerns Assessment Noted Time PHQ-9 Depression Total Score: 10 04/01/2019 9:14 AM CD T documented as of this encounter Care Teams Window Trimmer Apprentice Relationship Specialty Start Date End Date Magnus Zayas, PCP - General Student in organized 02/23/20 09/17/[address] education/training program 284 [place], [place] [address] Magnus Zayas, Assigned PCP 11/20/[address] [place] [address] documented as of this encounter
--- OUTSIDE RECORDS SUMMARY | 2022-04-10 10:22 | XMS_ITS | Encounter Summary ---
:2000 Author Organization [place] Address [address] [place] [address] Care Team Providers Name Role Phone Magnus Zayas DO Primary Care Provider [phone] Reason for Visit Reason Comments Establish Care Pt is lookng for new PCP. Encounter Details Date Type Department Care Team Description 02/23/2020 [facility] Magnus Zayas episode of recurrent major depressive disorder (H) (Primary Dx); Care Clinic DO Jostin Encounter for immunization 909 [facility] [address] [facility] 4th Floor [facility] 284 [place] [address] [phone] Social History Tobacco Use Types Packs/Day Years [...] name and anyone else listening in--family member, director day care center, hammersmith helper, etc.) Jude Bills This was a synchronous [...] completion of a Fontan procedure at the [facility] in 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 ) Patient wishes to establish with an adult PCP, since he has followed only with peds subspecialists until now. He has no concerns today. He lives with his girlfriend, recently moved in with her. 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 He exercises mostly by boxing and some sports, although keeps his exertion level within limitsset by his mash filter cloth changer. He does not smoke cigarrettes, vape, drink [...] Fortino now with Fenestrated Fontan Done at [place] [facility]: Past Surgical History: Procedure Laterality Date [...] Onset ??? Unknown/Adopted Other child [place] from [place] at 10mo of age ??? Unknown/Adopted Other [...] file Gets together: Not on file Attends hoahaoism service: Not on file Active member of [...] file Social History Narrative 12/23/19: Born in [place]. Abandoned around 8 months of age and lived in orphanage. [facility]opted and [facility] to [facility] for repair of cardiac disease around age 2 and has been here ever since. Lives with girlfriend, girlfriend's father and his partner as it is closer to school. They have a cat but no bites or scratches and does not change litter. 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 documented in this encounter Plan of Treatment Upcoming Encounters Date Type Specialty Care Team Description 07/27/2022 Ancillary Procedure Cardiology Cordell Juarez MD [address] [place] [address] (Wo lucio) 07/27/2022 Office Visit Cardiology Cordell Juarez MD [address] [place] [address] (Wo lucio) documented as of this encounter Visit Diagnoses Diagnosis Moderate episode of recurrent major depr essive disorder (H) - Primary Encounter for immunization Need for other specified prophylactic va ccination against single bacterial disease documented in this encounter Additional Health Concerns Assessment Noted Time PHQ-9 Depression Total Score: 10 04/01/2019 9:14 AM CD T documented as of this encounter Care Teams Lithographic Etcher Relationship Specialty Start Date End Date Magnus Zayas, PCP - General Student in organized 02/23/20 09/17/[address] education/training program 284 [place] [address] documented as of this encounter
--- OUTSIDE RECORDS SUMMARY | 2022-04-10 10:22 | XMS_ITS | Encounter Summary ---
:2000 Author Organization [place] Address [facility] [place] [address] Care Team Providers Name Role Phone Magnus Zayas DO Primary Care Provider Magnus Zayas DO Unavailable Encounter Details Date Type Department Care [...] 07/27/2022 Ancillary Procedure Cardiology Cordell Juarez MD [facility] [address] [place] [address] (Wo rk) 07/27/2022 Office Visit Cardiology Cordell Juarez MD [address] [place] [address] (Wo rk) documented as of this encounter Visit Diagnoses Not on filedocumented in this encounter Additional Health Concerns Assessment Noted Time PHQ-9 Depression Total Score: 10 04/01/2019 9:14 AM CD T documented as of this encounter Care Teams Glass Tube Bender Relationship Specialty Start Date End Date Magnus Zayas, PCP - General Student in organized 02/23/20 09/17/[address] education/training program 284 [place], [place] [phone] Magnus Zayas, Assigned PCP 02/28/2004/[address] [place] [address] documented as of this encounter
--- OUTSIDE RECORDS SUMMARY | 2022-04-10 10:22 | XMS_ITS | Encounter Summary ---
:2000 Author Organization [place] Address Pending sale to [facility]0 [facility] [place] [address] Care Team Providers Name Role Phone Magnus Zayas DO Primary Care Provider [phone] LogCeleste milan MD Unavailable Reason for Visit Reason Comments Medication Refill omeprazole (PRILOSEC) [address] capsule Encounter Details Date Type Department Care Team Description 11/13/2020 Refill [facility] Heart Shlomo Juarez MD Medication Refill Clinic [address] [place] [address] (omeprazole (PRILOSEC) 909 [facility] [address] capsule) [place] [address] [phone] Social History Tobacco Use Types Packs/Day Years [...] 07/27/2022 Ancillary Procedure Cardiology Cordell Juarez MD [address] [facility] [address] [place] [address] (Wo rk) 07/27/2022 Office Visit Cardiology LarryCordell MD [address] [facility] [address] [place] [address] (Wo rk) documented as of this encounter Visit Diagnoses Diagnosis Chest pain, unspecified type documented in this encounter Additional Health Concerns Assessment Noted Time PHQ-9 Depression Total Score: 10 04/01/2019 9:14 AM CD T documented as of this encounter Care Teams Telemetry Monitor Relationship Specialty Start Date End Date Magnus Zayas, ORI - General Student in organized 02/23/20 09/17/[address] education/training program 284 [place], [place] [address] Celeste Scales MD Assigned PCP 11/10/20 11/19/[address] [place] [id number] documented as of this encounter
--- OUTSIDE RECORDS SUMMARY | 2022-04-10 10:22 | XMS_ITS | Encounter Summary ---
:2000 Author Organization [place] Address [facility] [place] [address] Care Team Providers Name Role Phone Magnus Zayas DO Primary Care Provider [phone] Magnus Zayas DO Unavailable [phone] Celeste Scales MD Unavailable Magnus Zayas DO Unavailable [phone] Magda [place] MD Primary Care Provider Encounter Details Date Type Department Care Team Description 03/03/2020 Telephone [facility] Cordell Juarez MD [address] [place] [address] [place] [address] [place], [place] [phone] Social History Tobacco Use Types [...] [address] [facility] [address] [place] [address] (Wo rk) 07/27/2022 Office Visit Cardiology Cordell Juarez MD [address] [place] [address] (Wo rk) documented as of this encounter Visit Diagnoses Not on filedocumented in this encounter Additional Health Concerns Assessment Noted Time PHQ-9 Depression Total Score: 10 04/01/2019 9:14 AM CD T documented as of this encounter Care Teams Automatic Data Processing Planner Relationship Specialty Start Date End Date Magnus Zayas, PCP - General Student in organized 02/23/20 09/17/[address] education/training program 284 [place], [place] [address] Magda [place] PCP - General Family Medicine 09/18/21 MD [place] Magnus Zayas, Assigned PCP 02/28/2004/[address] [place], [place] [address] Celeste Scales MD Assigned PCP 11/10/20 11/19/[address] [address] Magnus Zayas, Assigned PCP 11/20/20 DO [address] [facility] 284 [place] [address] documented as of this encounter
--- OUTSIDE RECORDS SUMMARY | 2022-04-10 10:22 | XMS_ITS | Encounter Summary ---
:2000 Author Organization [place] Address [address]50 [facility] 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 1st Floor [place], [place] [phone] Social History Tobacco Use [...] Procedure Cardiology Larry, Cordell Barajas MD 2450 [facility] [address] [place] [address] (Wo rk) 07/27/2022 Office Visit Cardiology Larry, Cordell skelton MD [address] [facility] [address] [address] [place], [place] [address] (Wo rk) documented as of this encounter [...] 09/09/2020 [facility] mmol/L 11:46 AM [facility] Potassium 3.8 3.4 - 5.3 09/09/2020 [facility] mmol/L 11:46 AM CDT [facility] Chloride 108 94 - 109 09/09/2020 [facility] mmol/L 11:46 AM CDT [facility] Carbon Dioxide 28 20 - 32 09/09/2020 [facility] mmol/L 11:46 AM CDT [facility] Anion Gap 4 3 - 14 09/09/2020 [facility] mmol/L 11:46 AM CDT [facility] Glucose 96 70 - 99 09/09/2020 [facility] mg/dL 11:46 AM CDT [facility] Urea Nitrogen 19 7 - 30 09/09/2020 [facility] mg/dL 11:46 AM CDT [facility] Creatinine 0.96 0.66 - 09/09/2020 [facility] 1.25 mg/dL 11:46 AM [facility] GFR Estimate >90 >60 09/09/2020 [facility] mL/min/{1. 11:46 AM [facility] 73_m2} [facility] Comment: Non GFR Calc Starting 06/03/2018, serum creatinine ba sed estimated GFR (eGFR) will be calculated using the Chronic Kidney Dise [facility] Epidemiology Collaboration (CKD-EPI) equation. GFR Estimate If >90 >60 mL/min/{1.73_m2} 09/09/2020 11 :46 AM [facility] Black [facility] Comment: GFR Calc Starting 06/03/2018, serum creatinine ba sed estimated GFR (eGFR) will be calculated using the Chronic Kidney Dise [facility] Epidemiology Collaboration (CKD-EPI) equation. Calcium 9.6 8.5 - 10.1 mg/dL 09/09/2020 11:46 AM [facility] Bilirubin Total 1.1 0.2 - 1.3 mg/dL 09/09/2020 11:46 A M [facility] Albumin 4.6 3.4 - 5.0 g/dL 09/09/2020 11:46 AM [facility] Protein Total 8.2 6.8 - 8.8 g/dL 09/09/2020 11:46 AM [facility] Alkaline Phosphatase 72 40 - 150 U/L 09/09/2020 11:46 AM [facility] ALT 25 0 - 70 U/L 09/09/2020 11:46 AM [facility] AST 15 0 - 45 U/L 09/09/2020 11:46 AM [facility] Specimen Anatomical Collection Method Collection Time Receive d Time (Source) Location / / Volume Laterality Blood specimen 09/09/2020 11:08 1 (specimen) AM CDT 11:11 AM CDT Cordell Juarez MD LAB - BLOOD ORDERABLES Performing Organization Address City/State/ZIP Code Phon e Number [place] [phone] [facility] CBC with platelets differential (09/09/2020 11:08 AM [facility]) [facility] Method Time Signature WBC 5.3 4.0 - 09/09/2020 [facility] 11.0 11:15 AM [place] 10e9/L [facility] RBC Count 5.64 4.4 - 5.9 09/09/2020 [facility] 10e12/L 11:15 AM [facility] Hemoglobin 16.3 13.3 - 09/09/2020 [facility] 17.7 g/dL 11:15 AM [facility] Hematocrit 49.8 40.0 - 09/09/2020 [facility] 53.0 % 11:15 AM [facility] MCV 88 78 - 100 09/09/2020 [facility] 11:15 AM [facility] MCH 28.9 26.5 - 09/09/2020 [facility] 33.0 pg 11:15 AM [facility] MCHC 32.7 31.5 - 09/09/2020 [facility] 36.5 g/dL 11:15 AM [facility] RDW 12.5 10.0 - 09/09/2020 [facility] 15.0 % 11:15 AM [facility] Platelet Count 175 150 - 450 09/09/2020 [facility] 10e9/L 11:15 AM [facility] Diff Method Automated 09/09/2020 [facility] 11:15 AM [facility] % Neutrophils 66.6 % 09/09/2020 [facility] 11:15 [facility] [place] % Lymphocytes 23.4 % 09/09/2020 [facility] 11:15 [facility] % Monocytes 8.6 % 09/09/2020 [facility] 11:15 AM [facility] % Eosinophils 0.8 % 09/09/2020 [facility] 11:15 [facility] [place] % Basophils 0.6 % 09/09/2020 [facility] 11:15 AM [facility] % Immature 0.0 % 09/09/2020 [facility] Granulocytes 11:15 AM [facility] Nucleated RBCs 0 0 /100 09/09/2020 [facility] 11:15 AM [facility] Absolute 3.5 1.6 - 8.3 09/09/2020 [facility] Neutrophil 10e9/L 11:15 AM [facility] Absolute 1.2 0.8 - 5.3 09/09/2020 [facility] Lymphocytes 10e9/L 11:15 AM [facility] Absolute 0.5 0.0 - 1.3 09/09/2020 [facility] Monocytes 10e9/L 11:15 AM [facility] Absolute 0.0 0.0 - 0.7 09/09/2020 [facility] Eosinophils 10e9/L 11:15 AM [facility] Absolute 0.0 0.0 - 0.2 09/09/2020 [facility] Basophils 10e9/L 11:15 AM [facility] Abs Immature 0.0 0 - 0.4 09/09/2020 [facility] Granulocytes 10e9/L 11:15 AM [facility] Absolute 0.0 09/09/2020 [facility] Nucleated RBC 11:15 AM [facility] Specimen Anatomical Collection Method Collection Time Receive d Time (Source) Location / / Volume Laterality Blood specimen 09/09/2020 11:08 (specimen) AM CDT 11:11 AM CDT Cordell Juarez MD LAB - BLOOD ORDERABLES Performing Organization Address City/State/ZIP Code Phon e Number [address] [address] [facility] TSH with free T4 reflex (09/09/2020 11:08 AM CDT) P athologist Signature TSH 2.83 0.40 - 4.00 09/09/2020 [facility] mU/L 11:46 AM T [facility] Specimen Anatomical Collection Method Collection Time Receive d Time (Source) Location / / Volume Laterality Blood specimen 09/09/2020 11:08 1 (specimen) AM CDT 11:11 AM CDT Cordell Juarez MD LAB - BLOOD ORDERABLES Performing Organization Address City/State/ZIP Code Phon e Number [facility] [address] [place] [address] [facility] IgG (09/09/2020 11:08 AM CDT) P athologist Signature IGG [phone] 09/12/2020 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
--- OUTSIDE RECORDS SUMMARY | 2022-04-10 10:22 | XMS_ITS | Encounter Summary ---
:2000 Author Organization [place] Address [address] [place] [address] Care Team Providers Name Role Phone [facility], [facility] Primary Care Provider [phone] Reason for Referral CV Testing (Routine) - Closed Specialty Diagnoses / Procedures Referred By Contact Refer red To Contact Cardiology Diagnoses S/P Fontan procedure Cordell Juarez MD Cardiac Services Procedures Stress Test - Peds DOPPLER ECHO COLOR FLOW VELOCITY MAP ECHO HEART XTHORACIC, STRESS/REST HC CARDIAC STRESS TST,COMPLETE C CARDIAC STRESS TST,DR SUPERV ONLY CARDIAC STRESS TEST, TRACING ONLY [address] [address] [address] [facility] C CARDIAC STRESS TST,INTERP/[place] [address] [place] [address] Phone: Referral ID Status Reason Start Date Expiration Date Visits Requ ested Visits Authorized [id number] Closed 03/11/2020 02/16/2021 1 1 Reason for Visit Reason Comments RECHECK S/P Fontan procedure Encounter Details Date Type Department Care Team Description 02/17/2020 Office Visit [facility] Cordell Juarez, S/P Fontan procedure (Primary Dx); Pediatric Specialty Tachycardia; Clinic [address] Hypoplastic left heart syndr ome; [address] [address] Palpitations; [address] [place], [place] [address] [phone] Social History Tobacco Use Types Packs/Day Years [...] Recommendations: Stop metoprolol 02/17 Set up CPX ([phone] [facility]) , Holter [address] Jamison ([facility] nurses) SBE prophylaxis: Yes_X__ No____ Exercise restrictions: Yes___ No__X__ If yes list restrictions: Rest if tired Work restrictions: Yes___ No___X_ If yes list restrictions: Does better with day and evenign shifts Follow-up: Dr. Jamison after testing Dr. Juarez 6 months (June 2020) with ECG and echo [facility] [phone] Thank you for your visit today. If you have questions about today's visit, please call [facility] at [phone] or [facility] Nurse Line [phone] For after hours urgent needs call [phone] and ask to speak to the Pediatric Cardiology Physician correction lieutenant. For emergencies call [phone]. documented in this encounter Progress Notes Cordell Juarez MD - 02/17/2020 12:30 PM CDT Pediatric Cardiology Visit Patient: Jude Bills Date of : 2000 Age: 19 yo Date of Visit: Feb 17, 2020 PCP: Stephen Sauceda Dear Dr. Sauceda, I had the pleasure of seeing your patient, Jude Bills, in the Pediatric Cardiology Clinic at [facility] on Feb 17, 2020. 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 He underwent a central shunt, followed by a Fortino procedure and completion of a Fontan procedure at the [facility] in early childhood aide classroom. He had catheter closure of his Fontan fenestration at the [facility] in January 2007. Jude has a history [...] has recovered well. Jude is living in [place] and looking for a job. 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 Living with girlfriends family in [place]. 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 Denies EtoH, smoking, drug use. Prescription Medications as of 02/17/2020 Rx Number Disp Refills Start End Last Dispensed Date Next Fill Date Owning Pharmacy furosemide (LASIX) 20 MG tablet 45 tablet 3 02/17/2020 [facility] [address] [place] [address] N.E. Sig: Take 0.5 tablets (10 mg) by mouth daily Class: E-Prescribe Route: Oral metoprolol succinate ER (TOPROL-XL) 25 MG 24 hr tablet 45 tablet 3 02/17/2020 [facility] [address] [place] [address] N.E. Sig: Take 0.5 tablets (12.5 mg) by mouth daily Class: E-Prescribe Route: Oral montelukast (SINGULAIR) 10 MG tablet 90 tablet 3 02/17/2020 [facility] [address] [place] [address] N.E. Sig: Take 1 tablet (10 mg) by mouth daily Class: E-Prescribe Route: Oral spironolactone (ALDACTONE) 25 MG tablet 90 tablet 3 02/17/2020 [facility] [address] [place], [place] [id number] [facility] N.. Sig: Take 1 tablet (25 mg) by mouth daily Class: E-Prescribe Route: Oral amoxicillin (AMOXIL) 500 MG capsule 20 capsule 3 04/01/2019 [facility] [address] [place] [address] 3 Sig: Take 4 capsules (2,000 mg) by mouth as needed (one hour prior to dental cleanings) Class: E-Prescribe Route: Oral digoxin (DIGOX) 250 MCG tablet 90 tablet 3 12/31/2019 [facility] #1598 - [place] [id number] [facility].. Sig: Take 1 tablet (250 mcg) by mouth daily Class: E-Prescribe Route: Oral omeprazole (PRILOSEC) [address] capsule 90 capsule 3 11/04/2019 [facility] [address] [place] [address] 3 Sig: Take 1 capsule (20 mg) by mouth daily Class: E-Prescribe Route: Oral sildenafil (REVATIO) 20 MG tablet 90 tablet 11 11/20/2019 [facility] #1598 - [place] [id number] [facility] N. Sig: Take 1 tablet (20 mg) [...] 4320 hour(s)) Echo Pediatric Congenital (TTE) Narrative [id number]^ALFONSO^JALEN Study ID: [id number] [place] [address] Pediatric Echocardiogram __ Name: JUDE BILLS Study [...] P.8 mmHg desc Ao max P.1 mmHg [place] Z-Scores (Measurements & Calculations) Measurement NameValue Z-ScorePredictedNormal [...] if new concerns. Sincerely Cordell Juarez M.D. Clutch Operator of Pediatrics Pediatric and Adult Congenital Cardiology [facility] Pediatric Cardiology Office [phone] Adult Congenital Cardiology Triage and Scheduling [phone] documented in this encounter Nursing Notes Kim [...] 07/27/2022 Ancillary Procedure Cardiology Cordell Juarez MD [facility] [place] [id number] [place] [address] (Wo rk) 07/27/2022 Office Visit Cardiology Cordell Juarez MD [address] [facility] [address] [place] [address] (Arleen valdes) documented as of this encounter Procedures Procedure Name Priority Date/Time Associated Diagnosis Comme [facility] ELECTROCARDIOGRAM Routine 02/17/2020 S/P Fontan procedu re [...] mouthpiece with a nose clip in place. Togipk-my-fsewoj measurements of respiratory rate, VE, VO 2, [...] (L/min) 81.4 141 (123 measured) 57.7% VE/VCO2 [place] 31 Peak VT (L) 1.93 N/A N/A Minimum VE/VCO2 28 Peak RR (min -1) 42 N/A N/A VE/VCO2 @ AT 29 Breathing [place] 34% using measured MVV >30% N/A RER [...] multiple cardiac surgeries . Akash Kathleen MD, [facility] research associate professor, Pediatric Cardiolog y Director, Pediatric Cardiac Catheterisat ion Pager: [phone] [email or web address] Cordell Juarez MD CV CARDIAC [...] documented as of this encounter Care Teams Laboratory Animal Caretaker Relationship Specialty Start Date End Date [facility], [facility] PCP - General 06/25/19 02/22/[address] [place] [address] documented as of this encounter
--- OUTSIDE RECORDS SUMMARY | 2022-04-10 10:22 | XMS_ITS | Encounter Summary ---
:2000 Author Organization [facility] Address [address] [place] [address] Care Team Providers Name Role Phone Magnus Zayas DO Primary Care Provider Magnus Zayas DO Unavailable [phone] Reason for Visit CV Testing (Routine) - Closed Specialty Diagnoses / Procedures Referred By Contact Refer red To Contact Cardiology Diagnoses S/P Fontan procedure [facility] Cv Cardiac Svc Rscc Procedures Echo Congenital Adult HC ECHO XTHORACIC,NEHEMIAS ANOM,COMPLETE HC ECHO CONGENITAL W/CONTRAST HC ECHO CONGENITAL W/O CONTRAST HC DOPPLER ECHO PULSED, COMPLETE HC DOPPLER ECHO COLOR FLOW VELOCITY MAP 9 [facility] [id number] [place] [address] HC STATISTIC IV PUSH SINGLE [place] [address] [address] [place] [address] Phone: Fax: Referral ID Status Reason Start Date Expiration Date Visits Requ ested Visits Authorized [id number] Closed 01/21/2019 01/21/2020 1 1 Encounter Details Date Type Department Care Team Description 09/09/2020 Ancillary [facility] Cordell Juarez, S/P Fontan Procedure Heart Clinic Marie DUPREE procedure 909 [facility] [address] [place], [place] [address]E [place] [address] [address] [place] [phone] Social History Tobacco Use Types Packs/Day Years [...] Ancillary Procedure Cardiology Cordell Juarez MD [address] [place] [address] (Wo rk) 07/27/2022 Office Visit Cardiology Cordell Juarez MD [address] [place] [address] (Wo rk) documented as of this encounter [...] AM CDT Narrative 09/09/2020 9:38 AM CDT [id number]^JAVIER^CORDELL^RYAN ? Study ID: [id number] ?[facility] ?[facility] ?[address] ?[place] [address] ? Pediatric Echocardiogram Name: JUDE BILLS L [...] note might be different from the original. [id number]^JAVIER^AYLIN Study ID: [id number] [facility]'[address] [address] Pediatric Echocardiogram Name: JUDE BILLS Study Date: 09/09/2020 09:02 AM Patient Location: [facility] Age: 20 yrs : 2000 BP: [...] documented as of this encounter Care Teams Computerized Mill Recorder Relationship Specialty Start Date End Date Magnus Zayas, PCP - General Student in organized 02/23/20 09/17/[address] education/training program 284 [place] [address] Magnus Zayas, Assigned PCP 02/28/2004/[address] [place] [address] documented as of this encounter
--- OUTSIDE RECORDS SUMMARY | 2022-04-10 10:22 | XMS_ITS | Encounter Summary ---
:2000 Author Organization [place] Address [address] [place] [address] Care Team Providers Name Role Phone Magnus Zayas DO Primary Care Provider Magnus Zayas DO Unavailable [phone] Celeste Scales MD Unavailable Magnus Zayas DO Unavailable [phone] Magda Winchester MD Primary Care Provider Reason for Visit Reason Onset Date Comments Medication Refill sertraline (ZOLOFT) 25 MG Appointment 05/25/2020 Encounter Details Date Type Department Care Team Description 05/22/[address] [facility] Primary Care Vinay Scales MD Medication Refill Clinic [address] [place] [address] (sertraline (ZOLOFT) [address] [facility] 4TH FL MG ); Appointment 4th [place] [address] Social History Tobacco Use Types Packs/Day [...] but no appt has been made yet. R AND CUTTER FINGER BUFF MATERIAL Telephone Encounter - Gayathri Wells RN - 05/24/2020 5:27 PM CST sertraline (ZOLOFT) 25 MG Last Written Prescription Date: 04/06/20 Last Fill Quantity: 60 , # refills: 1 Last Office Visit : 04/06/20 Future Office visit: NONE Routing refill request to provider for review/approval because: 30 DAY RF PENDING OVER DUE PHQ9 (REPEAT) R AND CUTTER FINGER BUFF MATERIAL documented in this encounter Plan of Treatment Upcoming Encounters Date Type Specialty Care Team Description 07/27/2022 Ancillary Procedure Cardiology Cordell Juarez MD [address] [place] [address] (Wo rk) 07/27/2022 Office Visit Cardiology Cordell Juarez MD [address] [place] [address] [place], [place] [address] (Wo rk) documented as of this encounter Visit Diagnoses Diagnosis Moderate episode of recurrent major depr essive disorder (H) documented in this encounter Additional Health Concerns Assessment Noted Time PHQ-9 Depression Total Score: 10 04/01/2019 9:14 AM CD T documented as of this encounter Care Teams Automobile Tire Builder Relationship Specialty Start Date End Date Magnus Zayas, PCP - General Student in [facility] 02/23/20 09/17/21 [facility] care [address] [place] [address] education/training program 284 [place], [place] [address] Magda Winchester PCP - General Family Medicine 09/18/21 MD [place] Magnus Zayas, Assigned PCP 02/28/2004/[address] [place] [address] Celeste Scales MD Assigned PCP 11/10/20 11/19/[address] [place] [address] Magnus Zayas, Assigned PCP 11/20/[address] [address] documented as of this encounter
--- OUTSIDE RECORDS SUMMARY | 2022-04-10 10:22 | XMS_ITS | Encounter Summary ---
:2000 Author Organization [facility] Address [address] [facility] [place] [address] Care Team Providers Name Role Phone Magnus Zayas DO Primary Care Provider [phone] Magnus Zayas DO Unavailable [phone] Reason for Referral CV Testing (Routine) - Closed Specialty Diagnoses / Procedures Referred By Contact Refer red To Contact Cardiology Diagnoses S/P Fontan procedure Cordell Juarez MD Cardiac Services Procedures Stress Test - Peds DOPPLER ECHO COLOR FLOW VELOCITY MAP ECHO HEART XTHORACIC, STRESS/REST HC CARDIAC STRESS TST,COMPLETE C CARDIAC STRESS TST,DR SUPERV ONLY HC CARDIAC STRESS TEST, TRACING ONLY [address] [facility] [address] [address] [place] [facility] C CARDIAC STRESS TST,INTERP/[place] [address] [place] [address] Phone: Referral ID Status Reason Start Date Expiration Date Visits Requ ested Visits Authorized [id number] Closed 03/11/2020 02/16/2021 1 1 Reason for [...] HC CARDIAC STRESS TEST, TRACING ONLY [address] [facility] [address] [address] [place] [facility] C CARDIAC STRESS TST,INTERP/[place] [address] [place] [address] Phone: Referral ID Status Reason Start Date Expiration Date Visits Requ ested Visits Authorized [id number] Closed 03/11/2020 02/16/2021 1 1 Encounter Details Date Type Department Care Team Description 03/17/2020 Hospital Encounter [facility] Cordell Juarez , S/P [facility] procedure [place] [address] [facility] [address] [place] [address] [place] [address] [place], [place] [phone] [address] (Work) [phone] Social History Tobacco Use Types Packs/Day Years [...] 07/27/2022 Ancillary Procedure Cardiology Cordell Juarez MD [address] [id number] (Arleen valdes) 07/27/2022 Office Visit Cardiology Cordell Juarez MD [address] [place], [place] [address] (Wo rk) documented as of this encounter [...] mouthpiece with a nose clip in place. Lhzeyh-eh-qzkrnf measurements of respiratory rate, VE, VO 2, [...] (L/min) 81.4 141 (123 measured) 57.7% VE/VCO2 [place] 31 Peak VT (L) 1.93 N/A N/A Minimum VE/VCO2 28 Peak RR (min -1) 42 N/A N/A VE/VCO2 @ AT 29 Breathing [place] 34% using measured MVV >30% N/A RER [...] cardiac surgeries . Akash Kathleen MD, FACC, [facility] civil engineering professor, Pediatric Cardiolog y Director, Pediatric Cardiac Catheterisat ion Pager: [phone] [email or web address] Cordell Juarez MD CV CARDIAC SERVICES ORDERABL ES PFT General Lab Testing - scheduling order (03/17/2020 1:46 PM CDT) P athologist Signature FVC-Pred 4.03 L BREEZE PFT FVC-Pre 3.29 L BREEZE PFT FVC-%Pred-Pre 81 % BREEZE PFT FEV1-Pre 3.03 L BREEZE PFT FEV1-%Pred-Pre 86 % BREEZE PFT [id number] 88 % BREEZE PFT [id number] 92 % BREEZE PFT FEFMax-Pred 8.74 L/sec BREEZE PFT FEFMax-Pre 6.34 L/sec BREEZE PFT FEFMax-%Pred-Pr 72 % BREEZE PFT e [id number] 4.10 L/sec BREEZE PFT [id number] 3.63 L/sec BREEZE PFT SXW2394-%Pred-P 88 % BREEZE PFT re ExpTime-Pre 1.49 [...] BREEZE PFT ERV-%Pred-Pre 69 % BREEZE PFT [id number] 85 % BREEZE PFT [id number] 92 % BREEZE PFT [id number]-Sfnq 73 % BREEZE PFT [id number] 89 % BREEZE PFT Specimen (Source) Anatomical [...] documented as of this encounter Care Teams Presser And Blocker Knitted Goods Relationship Specialty Start Date End Date Magnus Zayas, PCP - General Student in organized 02/23/20 09/17/[address] education/training program 284 [place] [address] Magnus Zayas, Assigned PCP 02/28/2004/06 DO [address] [facility] 284 [place] [address] documented as of this encounter
--- OUTSIDE RECORDS SUMMARY | 2022-04-10 10:23 | XMS_ITS | Encounter Summary ---
:2000 Author Organization [place] Address [address] [place] [address]. [place] [address] Care Team Providers Name Role Phone Clinic, [facility] Primary Care Provider [phone] Encounter Details Date Type Department Care Team Description 12/31/[address] [facility] Lorena Reed SVT (s [facility] Explorer motion picture projectionist apprentice mariluz rodriguez) (H) Specialty Clinic [address] [place] [address] [address] [place] [address] Social History Tobacco Use Types [...] Ancillary Procedure Cardiology Larry, Cordell Barajas MD [address] [place], [place] [address] [place] [address] (Wo rk) 07/27/2022 Office Visit Cardiology Larry, Cordell skelton MD 24[address] [facility] [place] [address] (Wo rk) documented as of this encounter Visit Diagnoses Diagnosis SVT (supraventricular tachycardia) (H) Other specified cardiac dysrhythmias documented in this encounter Additional Health Concerns Assessment Noted Time PHQ-9 Depression Total Score: 10 04/01/2019 9:14 AM CD T documented as of this encounter Care Teams Lock Up Worker Relationship Specialty Start Date End Date Clinic, [facility] PCP - General 06/25/19 02/22/20 [address] [place] [address] documented as of this encounter
--- OUTSIDE RECORDS SUMMARY | 2022-04-10 10:23 | XMS_ITS | Encounter Summary ---
:2000 Author Organization [place] Address [facility] [place] [address] Care Team Providers Name Role Phone [facility] Primary Care Provider [phone] Reason for Visit Reason Comments Medication Refill Encounter Details Date Type Department Care Team Description 12/29/2019 Refill [facility] Cordell Juarez MD Medication Refill Pediatric Specialty [address] [place], [place] [id number] [place] [address] [place] [address] Social History Tobacco Use [...] Ancillary Procedure Cardiology Cordell Juarez MD [address] [place] [address] (Wo rk) 07/27/2022 Office Visit Cardiology Cordell Juarez MD [address] [place] [address] (Wo rk) documented as of this encounter 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 Additional Health Concerns Assessment Noted Time PHQ-9 Depression Total Score: 10 04/01/2019 9:14 AM CD T documented as of this encounter Care Teams Foreign Exchange Dealer Relationship Specialty Start Date End Date Clinic, [facility] PCP - General 06/25/19 02/22/20 [address] [place] [address] documented as of this encounter
--- OUTSIDE RECORDS SUMMARY | 2022-04-10 10:23 | XMS_ITS | Encounter Summary ---
:2000 Author Organization [place] Address [address] [place] [address]. [place] [address] Care Team Providers Name Role Phone Clinic, [facility] Primary Care Provider [phone] Encounter Details Date Type Department Care Team Description 12/30/2019 Orders [facility] Lorena Reed SVT (s [facility] Explorer senior financial reporting accountant mariluz rodriguez) (H) Specialty Clinic [address] [place] [address] [address] [place] [address] Social History Tobacco Use Types [...] Ancillary Procedure Cardiology Larry, Cordell Barajas MD [address] [place], [place] [address] [place] [address] (Wo rk) 07/27/2022 Office Visit Cardiology Larry, Cordell skelton MD [address] [facility] [place] [address] (Wo rk) documented as of this encounter Visit Diagnoses Diagnosis SVT (supraventricular tachycardia) (H) Other specified cardiac dysrhythmias documented in this encounter Additional Health Concerns Assessment Noted Time PHQ-9 Depression Total Score: 10 04/01/2019 9:14 AM CD T documented as of this encounter Care Teams Welt Rander Relationship Specialty Start Date End Date Clinic, [facility] PCP - General 06/25/19 02/22/20 [address] [place] [address] documented as of this encounter
--- OUTSIDE RECORDS SUMMARY | 2022-04-10 10:23 | XMS_ITS | Encounter Summary ---
:2000 Author Organization [place] Address [address] [facility] [place] [address] Care Team Providers Name Role Phone [facility] Primary Care Provider [phone] Encounter Details Date Type Department Care Team Description 08/19/2019 Hospital Encounter [facility] Cordell Juarez , S/P [facility] Laboratory procedure [address] [place] [address] [place], [place] [phone] [address] Social History Tobacco Use Types Packs/Day Years [...] MOUTH ONE TIME (supraventricular DAILY tachycardia) (H) furosemide (LASIX) 20 MG Take 1 tablet (20 90 tablet 3 03/1702/17/2020 tabletIndications: S/P mg) by mouth daily Fontan procedure metoprolol succinate ER TAKE ONE TABLET BY 30 tablet 01/201902/17/2020 (TOPROL-XL) 25 MG 24 hr MOUTH ONE TIME tabletIndications: DAILY Tachycardia montelukast (SINGULAIR) Take 10 mg by mouth 0 02/17/2020 10 MG tablet At Bedtime Escitalopram Oxalate Take 10 mg by mouth 0 12/26/2019 (LEXAPRO PO) daily omeprazole (PRILOSEC) 20 Take 1 capsule (20 [...] 07/27/2022 Ancillary Procedure Cardiology Cordell Juarez MD [address] [place] [address] [address] (Wo rk) 07/27/2022 Office Visit Cardiology Cordell Juarez MD [address] [place] [address] [place], [place] [phone] (Wo rk) documented as of this encounter Procedures Procedure Name Priority Date/Time Associated Comments Diagnosis CBC WITH PLATELETS & Routine 08/19/2019 10:25 S/P Fontan Res ults for this DIFFERENTIAL AM LINUX SERVER ADMINISTRATOR procedure procedure are i n the results section. DIGOXIN LEVEL Routine 08/19/2019 10:25 S/P Fontan Results fo r this AM LINUX SERVER ADMINISTRATOR procedure procedure are i n the results section. COMPREHENSIVE Routine 08/19/2019 10:25 S/P Fontan Results fo r this METABOLIC PANEL AM LINUX SERVER ADMINISTRATOR procedure procedure ar e in the results section. documented in this encounter Results Digoxin level (08/19/2019 10:25 AM LINUX SERVER ADMINISTRATOR) athologist Signature Digoxin Level 1.1 0.5 - 2.0 08/19/2019 [place] ug/L 11:39 AM [facility] Specimen Anatomical Collection Method Collection Time Receive d Time (Source) Location / / Volume Laterality Blood specimen 08/19/2019 10:25 0 (specimen) AM LINUX SERVER ADMINISTRATOR 10:41 AM LINUX SERVER ADMINISTRATOR Cordell Juarez MD LAB - BLOOD ORDERABLES Performing Organization Address City/State/ZIP Code Phon e Number M [facility] [address] [place] [id number] [phone] [facility] [address] [place] [address], U [phone] (ABNORMAL) CBC with platelets differential (08/19/2019 10:25 AM LINUX SERVER ADMINISTRATOR) [facility] Method Time Signature WBC 5.5 4.0 - 08/19/2019 [place] 11.0 10:45 AM [facility] 10e9/L [facility] RBC Count 5.94 (H) 4.4 - 5.9 08/19/2019 [place] 10e12/L 10:45 AM [facility] Hemoglobin 17.0 13.3 - 08/19/2019 [place] 17.7 g/dL 10:45 AM [facility] Hematocrit 53.4 (H) 40.0 - 08/19/2019 [place] 53.0 % 10:45 AM [facility] MCV 90 78 - 100 08/19/2019 [place] fl 10:45 AM [facility] MCH 28.6 26.5 - 08/19/2019 [facility] 33.0 pg 10:45 AM [facility] MCHC 31.8 31.5 - 08/19/2019 [facility] 36.5 g/dL 10:45 AM [facility] RDW 13.2 10.0 - 08/19/2019 [facility] 15.0 % 10:45 AM [facility] Platelet Count 190 150 - 450 08/19/2019 [facility] 10e9/L 10:45 AM [facility] Diff Method Automated 08/19/2019 [facility] Method 10:45 AM [facility] % Neutrophils 71.2 % 08/19/2019 [facility] 10:45 AM [facility] % Lymphocytes 18.9 % 08/19/2019 [facility] 10:45 AM [facility] % Monocytes 8.3 % 08/19/2019 [facility] 10:45 AM [facility] % Eosinophils 0.9 % 08/19/2019 [facility] 10:45 AM [facility] % Basophils 0.5 % 08/19/2019 [facility] 10:45 AM [facility] % Immature 0.2 % 08/19/2019 [facility] Granulocytes 10:45 AM [facility] Nucleated RBCs 0 0 /100 08/19/2019 [facility] 10:45 AM [facility] Absolute 3.9 1.6 - 8.3 08/19/2019 [facility] Neutrophil 10e9/L 10:45 AM [facility] Absolute 1.0 0.8 - 5.3 08/19/2019 [facility] Lymphocytes 10e9/L 10:45 AM [facility] Absolute 0.5 0.0 - 1.3 08/19/2019 [facility] Monocytes 10e9/L 10:45 AM [facility] Absolute 0.1 0.0 - 0.7 08/19/2019 [facility] Eosinophils 10e9/L 10:45 AM [facility] Absolute 0.0 0.0 - 0.2 08/19/2019 [facility] Basophils 10e9/L 10:45 AM [facility] Abs Immature 0.0 0 - 0.4 08/19/2019 [facility] Granulocytes 10e9/L 10:45 AM [facility] Absolute 0.0 08/19/2019 [facility] Nucleated RBC 10:45 AM [facility] Specimen Anatomical Collection Method Collection Time Receive d Time (Source) Location / / Volume Laterality Blood specimen 08/19/2019 10:25 0 (specimen) AM LINUX SERVER ADMINISTRATOR 10:41 AM LINUX SERVER ADMINISTRATOR Cordell Juarez MD LAB - BLOOD ORDERABLES Performing Organization Address City/State/ZIP Code Phon e Number M [facility] [address] [place], [place] [address] [facility] [address] [phone] Comprehensive metabolic panel (08/19/2019 10:25 AM LINUX SERVER ADMINISTRATOR) athologist Signature Sodium 139 133 - 144 08/19/2019 [place] mmol/L 10:54 AM [facility] Potassium 3.8 3.4 - 5.3 08/19/2019 [place] mmol/L 10:54 AM [facility] Chloride 107 98 - 110 08/19/2019 [place] mmol/L 10:54 AM [facility] Carbon Dioxide 29 20 - 32 08/19/2019 [place] mmol/L 11:03 AM [facility] Anion Gap 3 3 - 14 08/19/2019 [place] mmol/L 11:03 AM [facility] Glucose 97 70 - 99 08/19/2019 [place] mg/dL 11:03 AM [facility] Urea Nitrogen 23 7 - 30 08/19/2019 [place] mg/dL 11:03 AM [facility] Creatinine 1.00 0.50 - 08/19/2019 [place] 1.00 mg/dL 11:03 AM [facility] GFR Estimate >90 >60 08/19/2019 [place] mL/min/{1. 11:03 AM [facility] 73_m2} HOSPITAL Comment: Non GFR Calc Starting 06/03/2018, serum creatinine ba sed estimated GFR (eGFR) will be calculated using the Chronic Kidney Dise [facility] Epidemiology Collaboration (CKD-EPI) equation. GFR Estimate If >90 >60 mL/min/{1.73_m2} 08/19/2019 11 :[address] [facility] Comment: GFR Calc Starting 06/03/2018, serum creatinine ba sed estimated GFR (eGFR) will be calculated using the Chronic Kidney Dise [facility] Epidemiology Collaboration (CKD-EPI) equation. Calcium 9.3 8.5 - 10.1 mg/dL 08/19/2019 11:03 AM [facility] Bilirubin Total 1.0 0.2 - 1.3 mg/dL 08/19/2019 11:04 A M [facility] Albumin 4.4 3.4 - 5.0 g/dL 08/19/2019 11:04 AM [place] IE[facility] Protein Total 8.0 6.8 - 8.8 g/dL 08/19/2019 11:04 AM [facility] Alkaline Phosphatase 83 65 - 260 U/L 08/19/2019 11:04 AM [facility] ALT 27 0 - 50 U/L 08/19/2019 11:04 AM [facility] AST 20 0 - 35 U/L 08/19/2019 11:04 AM [facility] Specimen Anatomical Collection Method Collection Time Receive d Time (Source) Location / / Volume Laterality Blood specimen 08/19/2019 10:25 0 (specimen) AM LINUX SERVER ADMINISTRATOR 10:41 AM LINUX SERVER ADMINISTRATOR Cordell Juarez MD LAB - BLOOD ORDERABLES Performing Organization Address City/State/ZIP Code Phon e Number M [facility] [address] [place] [address] [facility] [address] [phone] documented in this encounter Visit Diagnoses Diagnosis S/P Fontan procedure Other postprocedural status documented in this encounter Additional Health Concerns Assessment Noted Time PHQ-9 Depression Total Score: 10 04/01/2019 9:14 AM CD T documented as of this encounter Care Teams Help Desk Support Specialist Relationship Specialty Start Date End Date [facility] P[facility] - General 06/25/19 02/22/[address] [place] [address] documented as of this encounter
--- OUTSIDE RECORDS SUMMARY | 2022-04-10 10:23 | XMS_ITS | Encounter Summary ---
:2000 Author Organization [place] Address [address] [place] [address]. [place] [address] Care Team Providers Name Role Phone [facility], [facility] Primary Care Provider [phone] Encounter Details Date Type Department Care Team [...] Procedure Cardiology Cordell Juarez MD [id number] [place], [place] [address] (Arleen valdes) 07/27/2022 Office Visit Cardiology Cordell Juarez MD [facility] [address] [place], [place] [address] (Wo rk) documented as of this encounter Visit Diagnoses Not on filedocumented in this encounter Additional Health Concerns Assessment Noted Time PHQ-9 Depression Total Score: 10 04/01/2019 9:14 AM CD T documented as of this encounter Care Teams Packaging Machine Supplies Distributor Relationship Specialty Start Date End Date [facility], [facility] PCP - General 06/25/19 02/22/20 [address] [phone] documented as of this encounter
--- OUTSIDE RECORDS SUMMARY | 2022-04-10 10:23 | XMS_ITS | Encounter Summary ---
:2000 Author Organization [place] Address [facility] [place] [address] Care Team Providers Name Role Phone Clinic, [facility] Primary Care Provider [phone] Reason for Visit Reason Onset Date Comments Refill Request 11/04/2019 Encounter Details Date Type Department Care Team Description 11/04/2019 Refill [facility] Explorer Cordell Juarez MD Refill Request [facility] [address] [place] [address] [facility] [place] [phone] Social History Tobacco Use Types Packs/Day [...] 07/27/2022 Ancillary Procedure Cardiology Cordell Juarez MD [address] [place] [phone] (Wo rk) 07/27/2022 Office Visit Cardiology Larry, Cordell skelton MD [address] [facility] [place] [phone] (Wo rk) documented as of this encounter Visit Diagnoses Diagnosis Chest pain, unspecified type 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
--- OUTSIDE RECORDS SUMMARY | 2022-04-10 10:23 | XMS_ITS | Encounter Summary ---
:2000 Author Organization [place] Address [address] [facility] [place] [address] Care Team Providers Name Role Phone [facility] [place] Primary Care Provider [phone] Reason for Visit Reason Comments Chest Pain Abdominal Pain Encounter Details Date Type Department Care Team Description 01/11/2020 Emergency [facility] Randa Umanzor Ch est pain (Primary Dx); [facility] Emergency AMD Abdominal pain, generalized Department [address] [facility] [place] [address] [place], [place] [phone] (Wo rk) Social History Tobacco Use Types [...] for Jude Roque was seen in the [facility] Emergency Department today for chest [...] or two. Please follow up with your pressure welder, Dr. Cordell Juarez, on 01/13/2020 as scheduled. Please keep your appointment to follow up with Pediatric Cardiology ([phone] - this number works for most pediatric [...] through Care Everywhere. Chest Pain, Uncertain Cause (Uzbek)Event Monitor, Using an (Uzbek)documented in this encounter Medications at Time of [...] hr MOUTH ONE TIME tabletIndications: DAILY Tachycardia omeprazole (PRILOSEC) 20 Take 1 capsule (20 [...] TIME tabletIndications: DAILY Hypoplastic left heart syndrome montelukast (SINGULAIR) Take 10 mg by mouth 0 02/17/2020 10 MG tablet At Bedtime valACYclovir (VALTREX) Take 1 tablet 8 tablet [...] Fortino now with Fenestrated Fontan Done at [place] Past Surgical History: Procedure Laterality Date ??? [...] Oral Given 01/11/20 0128) Old chart from [facility] reviewed, supported history as above. Labs reviewed and within normal limits. EKG with no significant changes from previous EKG's Patient was attended to immediately upon arrival and assessed for immediate life-threatening conditions. A consult was requested and obtained from Pediatric Aurist, who agreed with the assessment and plan [...] abnormal heart anatomy. We will obtain a [id number] troponin, BNP, CBC, BMP, d-dimer for initial assessment. Will also obtain a chest and abdominal XR. Troponin was noted to be negative at 0.00. BNP, d-dimer and BMP within normal limits as well. CXR was reviewed, showed no acute changes or pathologies. AXR with moderate amount of stool noted. Due to persistent pain, he received PO Tylenol 650 mg with mild improvement. Pediatric medical housekeeper was paged and on discussion with the staff, they recommended 48 hours of Holter monitoring and follow up with Jude's primary pressure welder, Dr. Juarez this week. Jude stated that he already has an appointment scheduled for this Saturday01/13/2020. For his moderate constipation, we will discharge him with miralax for a bowel regime. 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 Shweta Prescott MD Pediatric Resident. -2 [facility] This data was collected with the resident physician working in the Emergency Department. I saw and evaluated the patient and repeated the norton portions of the history and physical exam. The plan of carehas been discussed with the patient and family by me or by the resident under my supervision. I haveread and edited the entire note. Randa Umanzor MD 01/11/2020 [facility] Randa Umanzor MD 01/11/20 0230 documented in this encounter Plan of Treatment Upcoming Encounters Date Type Specialty Care Team Description 07/27/2022 Ancillary Procedure Cardiology Cordell Juarez MD [address] [facility] [address] [place] [address] (Wo rk) 07/27/2022 Office Visit Cardiology Cordell Juarez MD [address] [facility] [place] [address] [place] [address] (Wo rk) documented as of this encounter [...] findings. SALEEM ENG MD Shweta Prescott MD [facility] DIAGNOSTIC IMAGING ORDER BHAVESH XR Abdomen 2 [...] findings. SALEEM ENG MD Shweta Prescott MD [facility] DIAGNOSTIC IMAGING ORDER BHAVESH Troponin POCT (01/11/2020 [...] M AMPLATZ ug/ml FEU 1:22 AM CDT [facility] Comment: This D-dimer assay is intended [...] LAB - BLOOD ORDERABLES Performing Organization Address City/[facility]/ZIP Code Phon e Number U OF [facility] OF [facility] BNP (01/11/2020 12:45 AM CDT) athologist Signature N-Terminal Pro 90 0 - 450 01/11/2020 [facility] BNP Inpatient pg/mL 1:33 AM CDT [facility] Comment: Reference range shown and results [...] Code Phon e Number [facility] [place] [facility] (ABNORMAL) Basic metabolic panel (01/11/2020 12:45 AM CDT) P athologist Signature Sodium 138 133 - 144 01/11/2020 [place] mmol/L 1:25 AM [facility] Potassium 4.0 3.4 - 5.3 01/11/2020 [facility] mmol/L 1:33 AM [facility] Comment: Specimen slightly hemolyzed, po tassium may be falsely elevated Chloride 108 98 - 110 mmol/L 01/11/2020 1:25 AM [facility] Carbon Dioxide 26 20 - 32 mmol/L 01/11/2020 1:25 AM [facility] Anion Gap 4 3 - 14 mmol/L 01/11/2020 1:25 AM [facility] Glucose 103 (H) 70 - 99 mg/dL 01/11/2020 1:25 AM [facility] Urea Nitrogen 18 7 - 30 mg/dL 01/11/2020 1:25 AM [facility] Creatinine 0.94 0.50 - 1.00 mg/dL 01/11/2020 1:25 AM [facility] GFR Estimate >90 >60 01/11/2020 1:25 AM [facility] mL/min/{1.73_m2} [facility] Comment: Non GFR Calc Starting 06/03/2018, serum creatinine ba sed estimated GFR (eGFR) will be calculated using the Chronic Kidney Dise [facility] Epidemiology Collaboration (CKD-EPI) equation. GFR Estimate If >90 >60 mL/min/{1.73_m2} 01/11/2020 1: 25 AM [facility] Comment: GFR Calc Starting 06/03/2018, serum creatinine ba sed estimated GFR (eGFR) will be calculated using the Chronic Kidney Dise [facility] Epidemiology Collaboration (CKD-EPI) equation. Calcium 9.0 8.5 - 10.1 mg/dL 01/11/2020 1:25 AM CDT [facility] Specimen Anatomical Collection Method Collection Time Receive d Time (Source) Location / / Volume Laterality Blood specimen 01/11/2020 12:45 0 1:00 (specimen) AM CDT AM CDT Shweta Prescott MD LAB - BLOOD ORDERABLES Performing Organization Address City/State/ZIP Code Phon e Number M [facility] [address] [place] [address] [facility] [address] [place] [address], [place] [phone] [facility] CBC with platelets differential (01/11/2020 12:45 AM CDT) [facility] Method Time Signature WBC 5.1 4.0 - 01/11/2020 [facility] 11.0 1:07 AM CDT [facility] 10e9/L [facility] RBC Count 5.45 4.4 - 5.9 01/11/2020 [facility] 10e12/L 1:07 AM CDT [facility] Hemoglobin 15.6 13.3 - 01/11/2020 [facility] 17.7 g/dL 1:07 AM CDT [facility] Hematocrit 47.3 40.0 - 01/11/2020 [facility] 53.0 % 1:07 AM CDT [facility] MCV 87 78 - 100 01/11/2020 [facility] 1:07 AM CDT [facility] MCH 28.6 26.5 - 01/11/2020 [facility] 33.0 pg 1:07 AM CDT [facility] MCHC 33.0 31.5 - 01/11/2020 [facility] 36.5 g/dL 1:07 AM CDT [facility] RDW 14.8 10.0 - 01/11/2020 [facility] 15.0 % 1:07 AM CDT [facility] Platelet Count 213 150 - 450 01/11/2020 [facility] 10e9/L 1:07 AM CDT [facility] Diff Method Automated 01/11/2020 [facility] Method 1:07 AM CDT [facility] % Neutrophils 58.1 % 01/11/2020 [facility] 1:07 AM CDT [facility] % Lymphocytes 28.8 % 01/11/2020 [facility] 1:07 AM CDT [facility] % Monocytes 10.5 % 01/11/2020 [facility] 1:07 AM CDT [facility] % Eosinophils 1.8 % 01/11/2020 [facility] 1:07 AM CDT [facility] % Basophils 0.6 % 01/11/2020 [facility] 1:07 AM CDT [facility] % Immature 0.2 % 01/11/2020 [facility] Granulocytes 1:07 AM CDT [facility] Nucleated RBCs 0 0 /100 01/11/2020 [facility] 1:07 AM CDT [facility] Absolute 3.0 1.6 - 8.3 01/11/2020 [facility] Neutrophil 10e9/L 1:07 AM CDT [facility] Absolute 1.5 0.8 - 5.3 01/11/2020 [facility] Lymphocytes 10e9/L 1:07 AM CDT [facility] Absolute 0.5 0.0 - 1.3 01/11/2020 [facility] Monocytes 10e9/L 1:07 AM CDT [facility] Absolute 0.1 0.0 - 0.7 01/11/2020 [facility] Eosinophils 10e9/L 1:07 AM CDT [facility] Absolute 0.0 0.0 - 0.2 01/11/2020 [facility] Basophils 10e9/L 1:07 AM CDT [facility] Abs Immature 0.0 0 - 0.4 01/11/2020 [facility] Granulocytes 10e9/L 1:07 AM CDT [facility] Absolute 0.0 01/11/2020 [facility] Nucleated RBC 1:07 AM CDT [facility] Specimen Anatomical Collection Method Collection Time Receive d Time (Source) Location / / Volume Laterality Blood specimen 01/11/2020 12:45 0 1:00 (specimen) AM CDT AM CDT Shweta Prescott MD LAB - BLOOD ORDERABLES Performing Organization Address City/State/ZIP Code Phon e Number [facility] [address] [place] [address] [facility] EKG 12 lead (01/11/2020 12:36 AM CDT) [facility] gist Method Time Signature Interpretation ECG [...] Ruthy Caballero RN) 650 mg, Oral, ONCE, On Sat01/11/20 at 01 26, For 1 dose, Maximum acetaminophen dose from all sources = 75 mg/kg/day not to exceed 4 grams/day. documented in this encounter Additional Health Concerns Assessment Noted Time PHQ-9 Depression Total Score: 10 04/01/2019 9:14 AM CD T documented as of this encounter Care Teams Network Support Technician Relationship Specialty Start Date End Date [facility] PCP - General 06/25/19 02/22/[address] [place] [phone] documented as of this encounter
--- OUTSIDE RECORDS SUMMARY | 2022-04-10 10:23 | XMS_ITS | Encounter Summary ---
:2000 Author Organization [facility] Address [address] [place] [address]. [place] [address] Care Team Providers Name Role Phone [facility]io [facility] Primary Care Provider [phone] Reason for Visit Reason Comments Fever Auth/Cert Specialty Diagnoses / Procedures Referred By Contact Refer red To Contact Pediatrics Diagnoses Viral illness Fever Ur Unit [address] [place] [address] A VE LARY KAMARA [phone] Phone: Referral ID Status Reason Start Date Expiration Date Visits Requ ested Visits Authorized [id number] 1 1 Encounter Details Date Type Department Care Team Description 12/18/2019 - [facility] Kiersten Cortes MD [address] [place] [address] [address] [place], [place] [id number] 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 Pediatric Christel Gibson MD [address] [place] [address] [id number] Viral illness; Medical Surgical Hyperbiliru binemia; Unit 6 Thrombocytopenia (H); [address] [place] [address] Exposure to S ARS-associated coronavirus; AVE Dental infection LARY KAMARA [id number] Social History Tobacco Use Types Packs/Day Years [...] Fregoso MD - 12/29/2019 4:44 AM CDT [facility] Discharge Summary - Medicine & Pediatrics Date [...] in 3-5 days. Follow-up with your primary program administrator, Dr. Juarez, on February 16 as planned. 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 At this time he is living with his girlfriend and her father in [place] and expressed his desire franck discharged to [...] Dr. Daysi Blackwell MD Pediatric Cardiology Service [facility] Physician Attestation I, Daysi Fregoso, saw and [...] grossly intact.?? EXTREMITIES:??No deformities. Primary Care Physician [facility] Discharge Orders Reason for your hospital stay Treatment for HSV pharyngitis. Activity Your activity upon discharge: activity as tolerated Follow Up and recommended labs and tests Follow-up with your primary care provider in 3-5 days. Follow-up with your primary program administrator, Dr. Juarez, on February 16 as planned. [...] CASTELLANOS MD Echo Pediatric Congenital (TTE) Narrative [id number]^ALFONSO^YOSVANY Study ID: [id number] [facility]'s [address] [address] Pediatric Echocardiogram __ Name: JUDE MERRITT Study [...] P.8 mmHg desc Ao max P.1 mmHg [place] Z-Scores (Measurements & Calculations) Measurement NameValue Z-ScorePredictedNormal [...] Teague RN - 12/29/2019 6:51 AM CDT 8940-9984. VSS, afebrile and no pain noted. Good urine output. Went over discharge paperwork with patient around 0600, patient verbally understands discharge and signed paper was returned to chart. PIVdiscontinued. Patient will be taken by arranged car to dental clinic for wisdom teeth removal [id number]. Magda Ferreira RN - 12/28/2019 2:53 PM CDT Brief Fine Jewelry Sales Associate Progress Note Admission Date/Time: 12/18/2019 Attending MD: Christel Gibson MD Data Chart reviewed, discussed with interdisciplinary team. Patient was admitted for: Viral illness Hyperbilirubinemia Thrombocytopenia (H) Exposure to SARS-associated coronavirus. Concerns with insurance coverage for discharge needs: None. Transportation at Discharge: Van, wheelchair accessible Assessment Received referral to set up transport to [place] for dental procedure. Wheelchair van set through [employer] ([phone]) for 0730 on 12/28. Plan Anticipated Discharge Date: 12/28 Anticipated Discharge Plan: To dental clinic. Magda Ferreira RN Daysi Fregoso MD - 12/28/2019 8:38 AM CDT [facility] Progress Note - Pediatric Cardiology Service Date of Admission: 12/18/2019 Assessment & Plan ?? 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), malrotation s/p De Lancey procedure, polysplenia??and GERD??presenting with 2 days of [...] # GERD # polyspenia # malrotation s/p De Lancey procedure # hypokalemia-resolved - Continue to monitor [...] guardianship in the past.??He was admitted to [facility] for a month after his breakup where [...] Medicine & Pediatrics Pager Pediatric Cardiology Service [facility] Physician Attestation I, Daysi Fregoso MD, saw [...] Fregoso MD - 12/27/2019 12:54 PM CDT [facility] Progress Note - Pediatric Cardiology Service Date [...] # GERD # polyspenia # malrotation s/p De Lancey procedure # hypokalemia-resolved ?? - Continue maintenance [...] guardianship in the past.??He was admitted to [facility] for a month after his breakup where [...] Fregoso. Yosvany Hamilton MD Pediatric Cardiology Service [facility] Attending Attestation I, Daysi Fregoso MD, saw [...] this note. Daysi Fregoso M.D. Pediatric Cardiology [facility] Pediatric Cardiology Office [phone]\ 12/27/2019 Interval History No acute events overnight. [...] Fregoso MD - 12/26/2019 8:16 AM CDT [facility] Progress Note - Pediatric Cardiology Service Date of Admission: 12/18/2019 Assessment & Plan ?? 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 - Continue maintenance [...] guardianship in the past. He was admitted [facility] for a month after his breakup [...] was discussed with the Attending Physician, Dr. Freogso. Amanda Blackwell MD Pediatric Cardiology Service [facility] Attending Attestation I, Daysi Fregoso MD, saw [...] Daysi Fregoso M.D. Pediatric Cardiology [facility] Pediatric Cardiology Office [phone] 12/26/2019 Interval History No acute events overnight. [...] Rodriguez MD - 12/25/2019 4:46 PM CDT [facility] Infectious Disease Progress Note Date of Service [...] MD, PhD Pediatric Infectious Diseases Attending Pager: [phone] Interval History Pain improving and able to [...] imaging for past 24h ?? Radha Correa, WATER PLANT MAINTENANCE MECHANIC - 12/25/2019 12:51 PM CDT Social Work Progress Note December 25, 2019 Data District Plant Engineer met with Jude and his mother, Jude declined to speak with SW but agreed for SW to speak with his mother, Jaimie, in the room, so it's not behind my back. District Plant Engineer then put in blue tooth earplugs.Mother describes [...] guardianship, and has tried in the past. District Plant Engineer and Jaimie discussed the idea of vulnerable adult and whether he meets that criteria or not. If his behavior is harm to self, she may possibly have a case. Also discussed residential living. 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 Assessment Jude was disengaged from conversation, at times putting blanket over his head. Jaimie has attempted to gain guardianship but has not pushed, nor did she reach out to family that housed patient until this admission. Plan Follow and support patient and family Radha LAI, [facility] [phone] pager Asiya Costa MD - 12/25/2019 10:23 [...] Fregoso MD - 12/25/2019 9:09 AM CDT [facility] Progress Note - Pediatric Cardiology Service Date [...] guardianship in the past. [facility] [...] Fregoso. Yosvany Hamilton MD Pediatric Cardiology Service [facility] Attending Attestation I, Daysi Fregoso MD, saw [...] Daysi Fregoso M.D. Pediatric Cardiology [facility] Pediatric Cardiology Office [phone] 12/25/2019 Interval History Some increased throat pain overnight. Received 1 dose toradol and one dose morphine this morning with some relief. No other concerns. Data reviewed today: I reviewed all medications, new labs and imaging results over the last 24 hours. Physical Exam Vital Signs: Temp: 98 ??F (36.7 ??C) Temp src: Oral BP: 126/83 Heart Rate: 52 Resp: 17 SpO2: 94 % [id number]: None (Room air) Weight: 145 lbs 8.06 [...] 08 for dental appointment at clinic on [place]. Report given to EMS. No parents at bedside, pt signed for transfer. Mom informed by phone via RN. MD Yosvany Hamilton informed of transfer. Plan for pt to come back to hospital room 6144 after appointment. eli Pandya MD - 12/24/2019 6:27 PM CDT [facility] Infectious Disease Progress Note Date of Service [...] MD, PhD Pediatric Infectious Diseases Attending Pager: [phone] Interval History Continued severe mouth pain and [...] pulled away and refused the remaining dose. Fajardo Team notified. Daysi Fregoso MD - 12/24/2019 8:45 AM CDT [facility] Progress Note - Pediatric Cardiology Service Date of Admission: 12/18/2019 ?? Assessment & Plan ?? 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 [facility] where he met his current girlfriend who is 15 yrs old. He is intermittently non compliant. Social work to see today. ?? Lines:??PIV 12/17 DVT Prophylaxis:??Low Risk/Ambulatory with no VTE prophylaxis indicated Vlilela Catheter:??not present Code Status:??Full Code ?? Disposition Plan Expected discharge: 2 - 3 days, recommended to discharge to home??once completes dental work-up, afebrile, maintains adequate PO intake, social work sees pt, and pain well controlled on oral pain regimen Entered: Yosvany Hamilton MD 12/24/2019, 8:45 AM The patient's care was discussed with the Attending Physician, Dr. Fregoso. Yosvany Hamilton MD Pediatric Cardiology Service [facility] Attending Attestation I, Daysi Fregoso MD, saw [...] Daysi Fregoso M.D. Pediatric Cardiology [facility] Pediatric Cardiology Office [phone] 12/24/2019 Interval History Overnight one episode of [...] REE (MSJ) = 1600 x 1.2-1.4 = 5352-5241; 0.9 g/kg pro (ASSEMBLER) Estimated Energy Needs: 30-33 kcal/kg Estimated Protein Needs: 0.9 g/kg Estimated Fluid Needs: 25-30 mL/kg baseline or per MD Micronutrient Needs: ASSEMBLER for age MALNUTRITION % Intake: Unable to [...] Coverage for Jennifer Gallo RD, LD Pager: [phone] Frida Hammond - 12/23/2019 3:19 PM CDTSummary: spiritual care visit SPIRITUAL HEALTH SERVICES [facility] Peds Unit 6 REFERRAL SOURCE: admission request Initial visit with Jude & his mom. Jude was sitting up in his chair, appeared tired, and participated in conversation only through nods. Family's main concern at this time is getting to the bottomof things so they can fix it. Family is Scientologist by background and shared that prayers are always appreciated. Otherwise, no spiritual needs or support needs identified. PLAN: No planned follow-up, though chaplains remain available as requested. Frida Pastrana Staff Electric Accounting Machine Operator Pager [phone] * [facility] remains available 07/01 for emergent requests/referrals, either by having the switchboard page the on-call sheet metal smith or by entering an MARIA E/STAT consult in [facility] (this will also page the on-call sheet metal smith).* Celi Rodriguez MD - 12/23/2019 1:00 PM CDT [facility] Infectious Disease Progress Note Date of Service [...] heart s/p repair (modified Fontan), malrotation s/p De Lancey procedure, polysplenia??and GERD??presenting with 2 days of [...] - Given his history of residence [place] young child and history of [...] MD, PhD Pediatric Infectious Diseases Attending Pager: [phone] Interval History Continued severe mouth pain. No [...] have more support in his life (personal director social service etc.). SW planed to check-in with pt [...] note after meeting with pt. Elvi Lino Geriatric Nurse Practitioner Pager: [phone] Daysi Fregoso MD - 12/23/2019 10:43 AM CDT [facility] Progress Note - Pediatric Cardiology Service Date of Admission: 12/18/2019 Assessment & Plan ?? 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 He was admitted [facility] for a month after his breakup [...] Fregoso. Yosvany Hamilton MD Pediatric Cardiology Service [facility] Attending Attestation I, Daysi Fregoso MD, saw [...] Daysi Fregoso M.D. Pediatric Cardiology [facility] Pediatric Cardiology Office [phone] 12/23/2019 Interval History No acute events overnight. [...] - 12/23/2019 9:19 AM CDT Page to [place] resident, Yosvany Hamilton, that pt is having intermittent dips to 87-88% while sleeping.Per mom, this is not baseline, pt normally is >93%. No other vital changes at this time. Daysi Fregoso MD - 12/22/2019 8:49 AM CDT [facility] Progress Note - Pediatric Cardiology Service Assessment & Plan ?? 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 Juarez - labs as above ?? FEN/GI # GERD # polyspenia # malrotation s/p De Lancey procedure - hold IVF; assess PO intake [...] Fregoso. Yosvany Hamilton MD Pediatric Cardiology Service [facility] Attending Attestation I, Daysi Fregoso MD, saw [...] this note. Daysi Fregoso M.D. Pediatric Cardiology [facility] Pediatric Cardiology Office [phone] 12/22/2019 Interval History Jude continues to have [...] Hamilton MD - 12/21/2019 8:56 AM CDT [facility] Progress Note - Pediatric Cardiology Service Date of Admission: 12/18/2019 Assessment & Plan Jude Merritt is a??19 year old??with history of hypoplastic left heart s/p palliation (modified Fontan), malrotation s/p De Lancey procedure, polysplenia??and GERD??presenting with 2 days of [...] # GERD # polyspenia # malrotation s/p De Lancey procedure - IV/PO titrate with goal 400ml [...] Fregoso. Yosvany Hamilton MD Pediatric Cardiology Service [facility] Interval History No acute events overnight. Still [...] Gibson MD - 12/20/2019 12:06 PM CDT [facility] Progress Note - Pediatric Cardiology Service Date of Admission: 12/18/2019 Assessment & Plan Jude Merritt is a 19 year old??with history of hypoplastic left heart s/p repair (modified Fontan),malrotation s/p Bossman procedure, polysplenia??and GERD presenting with 2 days of fever/chills, malaise and sore throat with known COVID 19 exposure. Work-up thus far unremarkable for cause of fever/pharyngitis, including strep, COVID and [place] screening. ?? ID # fever/pharyngitis - COVID [...] # GERD # polyspenia # malrotation s/p Bosmsan procedure - IVMF NS 100 mL/hr; titrate [...] Gibson. Yosvany Hamilton MD Pediatric Cardiology Service [facility] Attending Attestation I, Christel Gibson MD, [...] M.D. Assitant Professor of Pediatrics Pediatric Cardiology [facility] Pediatric Cardiology Office [phone] Interval History Pt continues to report significant [...] Gibson MD - 12/19/2019 1:32 AM CDT [facility] History and Physical Pediatric Cardiology Date of Admission: 12/18/2019 Assessment & Plan Jude Merritt is a 19 year old with history of hypoplastic left heart s/p repair (modified Fontan), malrotation s/p De Lancey procedure, polysplenia and GERD presenting with 2 [...] AM - regular diet Primary Care Physician [facility] Attending Attestation I, Christel Gibson [...] M.D. Assitant Professor of Pediatrics Pediatric Cardiology [facility] Pediatric Cardiology Office [phone] Chief Complaint Malaise Sore throat Fever/chills History [...] responsive to ibuprofen. 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 Congenital anomalies of spleen Polysplenia ??? Esophageal reflux ??? 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 Betzaida Negron this past [...] for oral infection. Assessment and Plan: Assessment: [place] teeth are partially erupted with caries on the occlusal #17 and #32. The teeth are not cavitated. Pericoronitis #17, 32 with purulent discharge. Plan: 1.Recommend starting Chlorhexidine Gluconate oral rinse 0.12% two times per day, continue amoxicillin 500mg three times per day. 2.Patient is scheduled for a panoramic radiograph for definitive diagnosis at [facility] Adult dental clinic on 12/24/2019 at 11:30 [...] Fortino now with Fenestrated Fontan Done at [facility] Past Surgical History: See H&P Past Surgical [...] Onset ??? Unknown/Adopted Other child adopted from [place] at 10mo of age ??? Unknown/Adopted Other [...] 25 mg at 12/23/19 0851 No current [facility]-ordered outpatient medications on file. Review of Systems: [...] discussed with: Delfin Apodaca DMD PGY1 Pager: Associated attestation - Delfin Redman DDS - [...] CDTAssociated Order(s): PEDS INFECTIOUS DISEASES IP CONSULT [facility] [place] Infectious Disease Consultation ID Problem List: # Pharyngitis # Fevers prior admission with associated headaches, myalgias and pleuritic chest pain # New thrombocytopenia # History of hypoplastic left heart # Heterotaxy and polysplenia Date of Admission: 12/18/2019 Assessment & Plan Jude Merritt is a 19 year old??young man with history of hypoplastic left heart s/p repair (modified Fontan), malrotation s/p De Lancey procedure, polysplenia??and GERD presenting with 2 days [...] MD, PhD Pediatric Infectious Diseases Attending Pager: [phone] Reason for Consult Reason for consult: I was asked by Dr. Blackwell to evaluate this patient for flu-like illness and mouth pain without etiology. Primary Care Physician [facility] Chief Complaint Fevers, oral pain History is [...] risk factors reviewed. 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 Jaimie Merritt (Mother) ??? RenéBear mcginnis (Father) Other Topics Concern ??? Not on file Social History Narrative 12/22/19: Born in [place] and lived there until about 10 months. Came to [facility] to [facility] for repair of cardiac disease and has been here ever since. Lives with girlfriend, girlfriend's fatherand his partner as it is closer to school. They have a cat but no bites or scratches and does not change litter. 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 Unknown/Adopted Other child adopted from [place] at 10mo of age ??? Unknown/Adopted Other [...] Final diagnoses: None Isolation Precautions: Other: Special [id number] Suspected Infection: Not Applicable Multimedia Teacher Needed?: No B (Background) Pertinent Past Medical History: Past Medical History: Diagnosis Date ??? 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 Congenital anomalies of spleen Polysplenia ??? Esophageal reflux ??? 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 Seasonal Allergies [...] cough and fatigue. 800mg Ibuprofen 1 hour BUCKET PUSHER. Guille Cortes MD - 12/18/2019 8:45 PM [...] Most recent ibuprofen dose was 1 hour BUCKET PUSHER (approximately 1930). No sick contacts at home. 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 He does endorse wearing appropriate PPE while working. PMHx: Past Medical History: Diagnosis Date ??? 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 Congenital anomalies of spleen Polysplenia ??? Esophageal reflux ??? 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 [...] Seasonal allergies IMMUNIZATIONS: Up to date per [facility]. SOCIAL HISTORY: uJde lives with his girlfriend and her father, as well as his girlfriend's father's girlfriend (who is an EMT). He works as in . I have reviewed the Medications, Allergies, Past Medical and Surgical History, and Social History inthe [employer] system. Review of Systems Please see HPI [...] admitted to the pediatric cardiology subspecialty service. oJse Meade MD PL-2, Pediatrics [facility] Pager: [phone] Current Discharge Medication List Final diagnoses: Viral illness 12/18/2019 [facility] EM[facility]Y [facility]PART[facility] This data was collected [...] PM CDT Working with dental clinic and medication care manager and orange team to coordinate dental surgery tomorrow. 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 Girlfriend's dad [...] any changes. Plan of Care - Rajan Orta RN - 12/27/2019 11:29 PM CDT 5459-6664. Afebrile. VSS. Denies pain. Lung sounds clear. [...] Gonzales RN - 12/27/2019 6:23 AM CDT 4072-7521: VSS. Afebrile. Denies pain. No pain meds given. Patient drank 24 oz of vitamin water on eves. Good UOP. BM x1. Will continue to monitor and notify team of any changes. Plan of Care - Tammy Johansen RN - 12/26/2019 6:22 PM CDT 7932-7859: Jude was in good spirits, talking to [...] Vitals Pulse (!) 42 Heart Rate/Source Monitor Fajardo team notified of HRs in the low [...] sips of fluids. [facility] and back to room [...] visit and tooth extraction this morning [place]. Plan of Care - Kaylynn Murillo RN [...] 12/24/2019 5:24 PM CDT Transport arranged with [facility] coming to chart picker patient at 0830 for dental/maxillofacial clinic appointment scheduled at 0900. [facility] at [facility] [facility] [place] 7[facility] floor. Plan of Care - Marizol [...] Bella RN - 12/24/2019 5:54 AM CDT [id number]: Pt continues to have throat pain 10/10, difficulty swallowing (at times refusing po meds d/t pain), and c/o shocking in his back (not baseline per pt). Sternal chest pain x 1 hour (see MD notification), resolved now. Tmax 99.7 on evening shift (had not taken tylenol/ibuprofen from 1642-6741). Net negative 800 yesterday, urine concentrated, IVF [...] by benadryl and tylenol. Episode lasted from 5163-2139. 12 lead EKG and troponin done. MD in to assess pt. Pt resting and feeling better by 0045. Plan of Care - Patrizia Marino RN - 12/23/2019 5:03 PM CDT 0030-2733: Tmax 99.4F. Frequent naps, rating throat and [...] Lacey RN - 12/21/2019 11:57 AM CDT [facility] team resident notified of pt report of [...] 92 % O2 Device None (Room air) [facility] team resident notified of RR and lower SpO2 on RA. MD to bedside to assess. Plan of Care - Catarina Elam RN - 12/21/2019 5:17 AM CDT Patient AVSS overnight. Reporting 10/10 pain in throat, especially with swallowing and speaking. Scheduled pain meds given, PRN benzocaine spray and other interventions refused. O2 sats maintained on room air[facility] Mother would like to [...] parent at bedside. Plan of Care - Isabel Corea RN - 12/19/2019 10:42 PM CDT [...] Lacey RN - 12/19/2019 2:58 PM CDT [facility] team resident notified of photosensitivity and persistent 10/10 headache. Continue to monitor. Provider Notification - Nalini Lacey RN - 12/19/2019 2:16 PM CDT 12/19/19 1411 Oxygen Therapy SpO2 (!) 86 % O2 Device None (Room air) [facility] team notified of desat while asleep. O2 [...] Lacey RN - 12/19/2019 2:02 PM CDT [facility] team resident notified of pt report of [...] for the 12/18/2019 admission is complete. See [facility] admission navigator for allergy information, pharmacy, prior to admission medications and immunization status. Medication history interview sources: patient Changes made to [facility] medication list (reason) Added: none Deleted: escitalopram, [...] Procedure Cardiology Cordell Juarez MD [address] [address] (Wo rk) 07/27/2022 Office Visit Cardiology Cordell Juarez MD [address] [place] [address] (Wo rk) Pending Results Name Type Priority [...] OF M AMPLATZ mmol/L 6:09 AM T [facility] Potassium 3.4 3.4 - 5.3 12/28/2019 U OF M [place] mmol/L 6:09 AM T [facility] Chloride 106 98 - 110 12/28/2019 U OF M [place] mmol/L 6:09 AM T [facility] Carbon Dioxide 26 20 - 32 12/28/2019 [facility] mmol/L 6:14 AM T [facility] Anion Gap 7 3 - 14 12/28/2019 [facility] mmol/L 6:14 AM T [facility] Glucose 93 70 - 99 12/28/2019 [facility] mg/dL 6:14 AM T [facility] Urea Nitrogen 11 7 - 30 12/28/2019 [facility] mg/dL 6:14 AM [facility] Creatinine 0.83 0.50 - 12/28/2019 [facility] 1.00 mg/dL 6:14 AM [facility] GFR Estimate >90 >60 12/28/2019 [facility] mL/min/{1. 6:14 AM [facility] 73_m2} [facility]OSP[facility] Comment: Non GFR Calc Starting 06/03/2018, serum creatinine ba sed estimated GFR (eGFR) will be calculated using the Chronic Kidney Dise [facility] Epidemiology Collaboration (CKD-EPI) equation. GFR Estimate If >90 >60 mL/min/{1.73_m2} 12/28/2019 6: 14 AM [facility] Comment: GFR Calc Starting 06/03/2018, serum creatinine ba sed estimated GFR (eGFR) will be calculated using the Chronic Kidney Dise [facility] Epidemiology Collaboration (CKD-EPI) equation. Calcium 8.6 8.5 - 10.1 mg/dL 12/28/2019 6:14 AM [facility] Specimen Anatomical Collection Method Collection Time Receive d Time (Source) Location / / Volume Laterality Blood specimen 12/28/2019 5:58 AM 020 5:59 (specimen) CDT AM CDT Amanda Blackwell MD LAB - BLOOD ORDERABLES Performing Organization Address City/State/ZIP Code Phon e Number M [facility] [address] [place] [address] [phone] HOSPITAL U OF M [facility] [address] [place] [address], U [phone] (ABNORMAL) Basic metabolic panel (12/26/2019 7:18 AM CDT) P athologist Signature Sodium 141 133 - 144 12/26/2019 U OF M mmol/L 7:36 AM CDT [facility] Potassium 3.3 (L) 3.4 - 5.3 12/26/2019 U OF M mmol/L 7:36 AM T [facility] Chloride 110 98 - 110 12/26/2019 U OF M mmol/L 7:36 AM T [facility] Carbon Dioxide 27 20 - 32 12/26/2019 U OF M mmol/L 7:42 AM [facility] Anion Gap 4 3 - 14 12/26/2019 U OF M mmol/L 7:42 AM [facility] Glucose 92 70 - 99 12/26/2019 U OF M mg/dL 7:42 AM [facility] Urea Nitrogen 8 7 - 30 12/26/2019 U OF M mg/dL 7:42 AM [facility] Creatinine 0.95 0.50 - 12/26/2019 U OF M 1.00 mg/dL 7:42 AM [facility] GFR Estimate >90 >60 12/26/2019 U OF M mL/min/{1. 7:42 AM [facility] 73_m2} [facility] Comment: Non GFR Calc Starting 06/03/2018, serum creatinine ba sed estimated GFR (eGFR) will be calculated using the Chronic Kidney Dise [facility] Epidemiology Collaboration (CKD-EPI) equation. GFR Estimate If >90 >60 mL/min/{1.73_m2} 12/26/2019 7: 42 AM U OF [facility] Black [facility] Comment: GFR Calc Starting 06/03/2018, serum creatinine ba sed estimated GFR (eGFR) will be calculated using the Chronic Kidney Dise [facility] Epidemiology Collaboration (CKD-EPI) equation. Calcium 8.3 (L) 8.5 - 10.1 mg/dL 12/26/2019 7:42 AM CDT U OF [facility] Specimen Anatomical Collection Method Collection Time Receive d Time (Source) Location / / Volume Laterality Blood specimen 12/26/2019 7:18 AM 020 7:19 (specimen) CDT AM CDT Amanda Blackwell MD LAB - BLOOD ORDERABLES Performing Organization Address City/State/ZIP Code Phon e Number U OF [facility] U OF [facility] (ABNORMAL) CRP inflammation (12/26/2019 7:18 AM CDT) [facility] gist Method Time Signature CRP Inflammation 13.3 (H) 0.0 - 8.0 12/26/2019 U OF M mg/L 7:42 AM T [facility] Specimen Anatomical Collection Method Collection Time Receive d Time (Source) Location / / Volume Laterality Blood specimen 12/26/2019 7:18 AM 020 7:19 (specimen) CDT AM CDT Yosvany Hamilton MD LAB - BLOOD ORDERABLES Performing Organization Address City/State/ZIP Code Phon e Number U OF [facility] U OF [facility] Potassium (12/25/2019 8:33 AM CDT) athologist Signature Potassium 3.5 3.4 - 5.3 12/25/2019 U OF [facility] mmol/L 8:55 AM CDT [facility] Specimen Anatomical Collection Method Collection Time Receive d Time (Source) Location / / Volume Laterality Blood specimen 12/25/2019 8:33 AM 020 8:34 (specimen) CDT AM CDT Yosvany Hamilton MD LAB - BLOOD ORDERABLES Performing Organization Address City/State/ZIP Code Phon e Number U OF [facility] U OF [facility] ECHO PEDIATRIC CONGENITAL (12/24/2019 9:57 AM CDT) Anatomical Region Laterality Modality Echocardiography Specimen (Source) Anatomical Collection Method Collection Time Re ceived Time Location / / Volume Laterality 12/24/2019 9:36 AM CDT Narrative 12/24/2019 11:01 AM CDT [id number]^ALFONSO^YOSVANY ? Study ID: [id number] ?[facility] ?[facility] ?[address] ?[place] [address] ? Pediatric Echocardiogram __ Name: RENÉJUDE Study [...] mmHg ? desc Ao max P.1 mmHg [place] Z-Scores (Measurements & Calculat ions) Measurement NameValue [...] Procedure Note Kofi Swan MD - 12/23 [id number]^ALFONSO^YOSVANY Study ID: [id number] [facility] [address] [address] Pediatric Echocardiogram __ Name: JUDE MERRITT Study [...] P.8 mmHg desc Ao max P.1 mmHg [place] Z-Scores (Measurements & Calculat ions) Measurement NameValue [...] 12/24/2019 [facility] 10e9/L 6:41 AM CDT [facility] RBC Count 5.03 4.4 - 5.9 12/24/2019 [facility] 10e12/L 6:41 AM CDT [facility] Hemoglobin 14.3 13.3 - 12/24/2019 [facility] 17.7 g/dL 6:41 AM CDT [facility] Hematocrit 43.0 40.0 - 12/24/2019 [facility] 53.0 % 6:41 AM CDT [facility] MCV 86 78 - 100 12/24/2019 [facility] fl 6:41 AM CDT [facility] MCH 28.4 26.5 - 12/24/2019 [facility] 33.0 pg 6:41 AM CDT [facility] MCHC 33.3 31.5 - 12/24/2019 [facility] 36.5 g/dL 6:41 AM CDT [facility] RDW 12.5 10.0 - 12/24/2019 [facility] 15.0 % 6:41 AM CDT [facility] Platelet Count 161 150 - 450 12/24/2019 [facility] 10e9/L 7:18 AM CDT [facility] Specimen Anatomical Collection Method Collection Time Receive d Time (Source) Location / / Volume Laterality Blood specimen 12/24/2019 6:15 AM 020 6:16 (specimen) CDT AM CDT Celi Rodriguez MD LAB - BLOOD ORDERABLES Performing Organization Address City/[facility]/ZIP Code Phon e Number [facility] [address] [place] [address] [facility] Herpes Simplex Virus 1 and 2 IgG [...] Code Phon e Number INFECTIOUS DISEASES [address] [place] [address] DIAGNOSTIC LABORATORY, [facility] INFECTIOUS DISEASES [address] [place] [address], A DIAGNOSTIC LABORATORY (ABNORMAL) CRP inflammation (12/24/2019 6:15 AM CDT) Patholo gist Method Time Signature CRP Inflammation 48.3 (H) 0.0 - 8.0 12/24/2019 U OF M mg/L 7:15 AM CDT [facility] Specimen Anatomical Collection Method Collection Time Receive d Time (Source) Location / / Volume Laterality Blood specimen 12/24/2019 6:15 AM 020 6:16 (specimen) CDT AM CDT Celi Rodriguez MD LAB - BLOOD ORDERABLES Performing Organization Address City/State/ZIP Code Phon e Number U OF [place] [facility] U OF M [facility] (ABNORMAL) Basic metabolic panel (12/24/2019 6:15 AM CDT) P athologist Signature Sodium 140 133 - 144 12/24/2019 U OF M mmol/L 7:10 AM [facility] Potassium 3.2 (L) 3.4 - 5.3 12/24/2019 U OF M mmol/L 7:10 AM [facility] Chloride 108 98 - 110 12/24/2019 U OF M mmol/L 7:10 AM [facility] Carbon Dioxide 27 20 - 32 12/24/2019 U OF M mmol/L 7:15 AM [facility] Anion Gap 5 3 - 14 12/24/2019 U OF M mmol/L 7:15 AM [facility] Glucose 117 (H) 70 - 99 12/24/2019 U OF M mg/dL 7:15 AM [facility] Urea Nitrogen 11 7 - 30 12/24/2019 U OF M mg/dL 7:15 AM [facility] Creatinine 0.82 0.50 - 12/24/2019 U OF M 1.00 mg/dL 7:15 AM [facility] GFR Estimate >90 >60 12/24/2019 U OF M mL/min/{1. 7:15 AM T [facility] 73_m2} [facility] Comment: Non GFR Calc Starting 06/03/2018, serum creatinine ba sed estimated GFR (eGFR) will be calculated using the Chronic Kidney Dise ase Epidemiology Collaboration (CKD-EPI) equation. GFR Estimate If >90 >60 mL/min/{1.73_m2} 12/24/2019 7: 15 AM U OF M [facility] Black [facility] Comment: GFR Calc Starting 06/03/2018, serum creatinine ba sed estimated GFR (eGFR) will be calculated using the Chronic Kidney Dise ase Epidemiology Collaboration (CKD-EPI) equation. Calcium 8.1 (L) 8.5 - 10.1 mg/dL 12/24/2019 7:15 AM CDT [facility] Specimen Anatomical Collection Method Collection Time Receive d Time (Source) Location / / Volume Laterality Blood specimen 12/24/2019 6:15 AM 020 6:16 (specimen) CDT AM CDT Celi Rodriguez MD LAB - BLOOD ORDERABLES Performing Organization Address City/[facility]/ZIP Code Phon e Number U [facility] Quantiferon TB Gold Plus (12/24/2019 6:15 AM CDT) Analysis Performed At Patho logist Time Signature Quantiferon-TB Negative NEG^Negati 12/25/2019 [facility]ITY Gold Plus ve 12:54 PM CDT [facility] Comment: No interferon gamma response to M.tuberc [...] Nil 0.06 IU/mL 12/25/2019 12:54 PM CDT [facility] TB2 Ag minus Nil 0.03 IU/mL 12/25/2019 12:54 PM CDT [facility] Mitogen minus Nil >10.00 IU/mL 12/25/2019 12:54 PM CD T [facility] Nil Result 0.10 IU/mL 12/25/2019 12:54 PM CDT [facility] Specimen Anatomical Collection Method Collection Time Receive d Time (Source) Location / / Volume Laterality Plasma specimen 12/24/2019 6:15 AM 2019 6:16 (specimen) CDT AM CDT Celi Rodriguez MD LAB - MICRO GENERAL ORDERABL ES Performing Organization Address City/State/ZIP Code Phon e Number [facility] [address] [place], [place] [id number] [place] [address] Troponin I (12/24/2019 12:49 AM CDT) athologist Signature Troponin I ES <0.015 0.000 - 12/24/2019 U OF M [facility] 0.045 ug/L 1:24 AM CDT [facility] Comment: The 99th percentile for upper [...] City/State/ZIP Code Phon e Number U OF [facility] U OF M [facility] EKG 12 lead (12/23/2019 11:49 PM CDT) [facility] gist Method Time Signature Interpretation ECG Click View RADIOLOGY Image link RESULTS to view waveform and result Specimen (Source) Anatomical Collection Method Collection Time Re ceived Time Location / / Volume Laterality 12/23/2019 11:49 PM CDT Jose Meade MD ECG ORDERABLES Performing Organization Address City/[facility]/ZIP Code Phon e Number RADIOLOGY RESULTS EKG 12 lead - pediatric (12/23/2019 11:49 PM CDT) [facility] gist Method Time Signature Interpretation [...] BHAVESH Blood culture (12/23/2019 7:05 AM CDT) [employer] Method Time Signature Specimen Blood Left INFECTIOUS [...] Code Phon e Number INFECTIOUS DISEASES [address] [place] [address] DIAGNOSTIC LABORATORY, [facility] INFECTIOUS DISEASES [address] [place] [address], [place] A DIAGNOSTIC LABORATORY Blood culture (12/23/2019 1:40 AM CDT) [employer] Method Time Signature Specimen Blood Right INFECTIOUS [...] Code Phon e Number INFECTIOUS DISEASES [address] [place] [address] DIAGNOSTIC LABORATORY, [facility] INFECTIOUS DISEASES [address] [place] [address], [place] [facility] DI[facility]NOSTIC LAB[facility]ATORY CT Soft Tissue [...] DNA by PCR (12/22/2019 2:00 PM CDT) [facility] Method Time Signature HSV Specimen Oral 12/22/2019 [facility] 2:35 PM CDT [facility] HSV Type 1 Positive (A) NEG^Negat 12/23/2019 INFECTIOUS PCR colleen 2:38 PM CDT DISE[facility]ES DIAGNOSTIC LABORATORY HSV Type 2 Negative NEG^Negat 12/23/2019 INFECTIOUS PCR colleen 2:38 PM CDT [facility] DIAG[facility]STIC LABORATORY Comment: ??The qualitative Herpes simplex virus DNA assay is a real-time polymerase chain reaction (PCR) utilizing analyte s pecific reagents manufactured by [employer]. ??Analyte Specific Reagent s (ASRs) are used in many laboratory tests necessary for standard medical car e and generally do not require FDA approval. ??This test was developed and its perfo rmance characteristics determined by the [facility] [employer]. ??It has not been cleared or approved by the [place] Food and D rug Administration. Specimen Anatomical Collection Method Collection Time Receive d Time (Source) Location / / Volume Laterality Oral cavity 12/22/2019 2:00 PM 0 2:35 specimen CDT PM CDT (specimen) Celi Rodriguez MD LAB - MICRO GENERAL ORDERABL ES Performing Organization Address City/State/ZIP Code Phon e Number INFECTIOUS DISEASES [address] [place] [address] DIAGNOSTIC LABORATORY, [place] [id number] [place], [place] [address] [place] [address] INFECTIOUS DISEASES [address] [place] [address], A DIAGNOSTIC LABORATORY Throat Culture Aerobic Bacterial (12/22/2019 2:00 PM CDT) [facility] Method Time Signature Specimen Throat INFECTIOUS Description [...] MICRO GENERAL ORDERABL ES Performing Organization Address City/[facility]/ZIP Code Phon e Number INFECTIOUS DISEASES [address] [place] [address] DIAGNOSTIC LABORATORY, [facility] INFECTIOUS DISEASES [address] [place] [address], A DIAGNOSTIC LABORATORY HIV Antigen Antibody Combo (12/22/2019 9:24 AM CDT) [facility] [employer] Method Time Signature HIV Antigen Nonreactive NR^Nonrea 12/23/2019 [facility] Antibody ctive 9:30 AM CDT [facility] Comment: HIV-1 p24 Ag & HIV-1/HIV-2 Ab N ot Detected Specimen Anatomical Collection Method Collection Time Receive d Time (Source) Location / / Volume Laterality 12/22/2019 9:24 AM 0 9:25 CDT AM CDT Yosvany Hamilton MD LAB - BLOOD ORDERABLES Performing Organization Address City/State/ZIP Code Phon e Number [address] [address] [facility] Ehrlichia Anaplasma Sp by PCR (12/22/2019 9:24 AM CDT) Component Value Ref Test Analysis Performed At [facility] [employer] Range Method Time Signature Anaplasma Not Detected 12/26/2019 U OF M phagocytophilum 9:57 AM CDT [facility] Ehrlichia Not Detected 12/26/2019 U OF M chaffeensis 9:57 AM CDT [facility] Ehrlichia Not Detected 12/26/2019 U OF M ewingii/canis 9:57 AM CDT [facility] Ehrlichia Not Detected 12/26/2019 U OF M muris-like 9:57 AM CDT [facility] Comment: (Note) INTERPRETIVE INFORMATION: ??Ehrlichia an d Anaplasma Species by PCR ?? A negative result does not rule out the presence of PCR inhibitors in the patient specimen or te st-specific nucleic acid in concentrations below the level o f detection by this assay. Test developed and characteristics deter mined by [employer]. See Compliance Statement B : [employer]/CS Performed by [employer], [address] [place] [address] [email or web address], Dominik Ovalle MD, Lab. Director Specimen Anatomical Collection Method Collection Time Receive d Time (Source) Location / / Volume Laterality 12/22/2019 9:24 AM 0 9:25 CDT AM CDT Yosvany Hamilton MD LAB - BLOOD ORDERABLES Performing Organization Address City/State/ZIP Code Phon e Number U OF [place] [facility] U OF M [facility] (ABNORMAL) Basic metabolic panel (12/22/2019 9:24 AM CDT) athologist Signature Sodium 139 133 - 144 12/22/2019 U OF M mmol/L 9:37 AM T [facility] Potassium 3.3 (L) 3.4 - 5.3 12/22/2019 U OF M mmol/L 9:37 AM [facility] Chloride 107 98 - 110 12/22/2019 U OF M mmol/L 9:37 AM [facility] Carbon Dioxide 25 20 - 32 12/22/2019 U OF M mmol/L 9:43 AM [facility] Anion Gap 7 3 - 14 12/22/2019 U OF M mmol/L 9:43 AM [facility] Glucose 75 70 - 99 12/22/2019 U OF M mg/dL 9:43 AM [facility] Urea Nitrogen 14 7 - 30 12/22/2019 U OF M mg/dL 9:43 AM [facility] Creatinine 0.81 0.50 - 12/22/2019 U OF M 1.00 mg/dL 9:43 AM [facility] GFR Estimate >90 >60 12/22/2019 U OF M mL/min/{1. 9:43 AM T [facility] 73_m2} [facility] Comment: Non GFR Calc Starting 06/03/2018, serum creatinine ba sed estimated GFR (eGFR) will be calculated using the Chronic Kidney Dise ase Epidemiology Collaboration (CKD-EPI) equation. GFR Estimate If >90 >60 mL/min/{1.73_m2} 12/22/2019 9: 43 AM U OF [facility] Black [facility] Comment: GFR Calc Starting 06/03/2018, serum creatinine ba sed estimated GFR (eGFR) will be calculated using the Chronic Kidney Dise ase Epidemiology Collaboration (CKD-EPI) equation. Calcium 8.1 (L) 8.5 - 10.1 mg/dL 12/22/2019 9:43 AM CDT U [facility] Specimen Anatomical Collection Method Collection Time Receive d Time (Source) Location / / Volume Laterality Blood specimen 12/22/2019 9:24 AM 020 9:25 (specimen) CDT AM CDT Yosvany Hamilton MD LAB - BLOOD ORDERABLES Performing Organization Address City/[facility] Phon e Number U OF [facility] U OF [facility] Nt probnp inpatient (12/22/2019 9:24 AM CDT) athologist Signature N-Terminal Pro 299 0 - 450 12/22/2019 [facility] BNP Inpatient pg/mL 9:46 AM T [facility] Comment: Reference range shown and results [...] LAB - BLOOD ORDERABLES Performing Organization Address City/[facility] Phon e Number U [facility] U [facility] Troponin I (12/22/2019 9:24 AM CDT) athologist Signature Troponin I ES <0.015 0.000 - 12/22/2019 U OF M [facility] 0.045 ug/L 9:46 AM CDT [facility] Comment: The 99th percentile for upper [...] LAB - BLOOD ORDERABLES Performing Organization Address City/[facility]/ZIP Code Phon e Number [facility] U [facility] (ABNORMAL) CRP inflammation (12/22/2019 9:24 AM CDT) [facility] [employer] Method Time Signature CRP Inflammation 107.0 (H) 0.0 - 8.0 12/22/2019 U OF M mg/L 9:45 AM CDT [facility] Specimen Anatomical Collection Method Collection Time Receive d Time (Source) Location / / Volume Laterality Blood specimen 12/22/2019 9:24 AM 020 9:25 (specimen) CDT AM CDT Yosvany Hamilton MD LAB - BLOOD ORDERABLES Performing Organization Address City/[facility]/ZIP Code Phon e Number [facility] U [facility] (ABNORMAL) CBC with platelets differential (12/22/2019 9:24 AM CDT) [facility] Method Time Signature WBC 9.7 4.0 - 12/22/2019 [facility] 11.0 9:59 AM CDT [facility] 10e9/L [facility] RBC Count 4.88 4.4 - 5.9 12/22/2019 [facility] OF 10e12/L 9:59 AM CDT [facility] Hemoglobin 14.1 13.3 - 12/22/2019 [facility] OF 17.7 g/dL 9:59 AM CDT [facility] Hematocrit 42.7 40.0 - 12/22/2019 [facility] 53.0 % 9:59 AM CDT [facility] MCV 88 78 - 100 12/22/2019 [facility] fl 9:59 AM CDT [facility] MCH 28.9 26.5 - 12/22/2019 [facility] OF 33.0 pg 9:59 AM CDT [facility] MCHC 33.0 31.5 - 12/22/2019 [facility] OF 36.5 g/dL 9:59 AM CDT [facility] RDW 12.9 10.0 - 12/22/2019 [facility] OF 15.0 % 9:59 AM CDT [facility] Platelet Count 105 (L) 150 - 450 12/22/2019 [facility] OF 10e9/L 9:59 AM CDT [facility] Diff Method Automated 12/22/2019 [facility] OF Method 9:59 AM T [facility] % Neutrophils 75.4 % 12/22/2019 [facility] OF 9:59 AM T [facility] % Lymphocytes 9.2 % 12/22/2019 [facility] 9:59 AM T [facility] % Monocytes 13.1 % 12/22/2019 [facility] OF 9:59 AM T [facility] % Eosinophils 1.6 % 12/22/2019 [facility] OF 9:59 AM T [facility] % Basophils 0.3 % 12/22/2019 [facility] OF 9:59 AM T [facility] % Immature 0.4 % 12/22/2019 [facility] OF Granulocytes 9:59 AM T [facility] Nucleated RBCs 0 0 /100 12/22/2019 [facility] OF 9:59 AM [facility] Absolute 7.3 1.6 - 8.3 12/22/2019 [facility] OF Neutrophil 10e9/L 9:59 AM CDT [facility] Absolute 0.9 0.8 - 5.3 12/22/2019 [facility] Lymphocytes 10e9/L 9:59 AM CDT [facility] Absolute 1.3 0.0 - 1.3 12/22/2019 [facility] Monocytes 10e9/L 9:59 AM T [facility] Absolute 0.2 0.0 - 0.7 12/22/2019 [facility] Eosinophils 10e9/L 9:59 AM T [facility] Absolute 0.0 0.0 - 0.2 12/22/2019 [facility] OF Basophils 10e9/L 9:59 AM T [facility] Abs Immature 0.0 0 - 0.4 12/22/2019 [facility] Granulocytes 10e9/L 9:59 AM CDT [facility] Absolute 0.0 12/22/2019 [facility] Nucleated RBC 9:59 AM CDT [facility] Specimen Anatomical Collection Method Collection Time Receive d Time (Source) Location / / Volume Laterality Blood specimen 12/22/2019 9:24 AM 020 9:25 (specimen) CDT AM CDT Yosvany Hamilton MD LAB - BLOOD ORDERABLES Performing Organization Address City/State/ZIP Code Phon e Number [facility] [address] [place] [address] [facility] SARS-CoV-2 COVID-19 Virus (Coronavirus) RT-PCR Nasopharyngeal (12/21/2019 11:50 PM CDT) [facility] Method Time Signature SARS-CoV-2 Nasopharyngeal 12/22/2019 [facility] Virus 2:32 AM CDT [facility] Source CAMPUS SARS-CoV-2 NEGATIVE 12/22/2019 [facility] PCR Result 2:32 AM CDT [facility] Comment: SARS-CoV2 (COVID-19) RNA not de tected, presumed negative. SARS-CoV-2 PCR Testing was performed using the Xpert Xpress SARS-CoV-2 Assay on the Scientific Revenue-Xpert 12/22/2019 2:32 AM [facility] [employer]. Addition al information about this Emergency Use Authorization (E[facility]) [facility] assay can be found via the Lab Guide. [place] Comment: This test should be ordered for [...] COVID-19. This test was validated by the [facility] Infectious Diseases Diagnostic Laboratory. This laboratory i [...] MICRO GENERAL ORDERABL ES Performing Organization Address City/[facility]/ZIP Code Phon e Number [facility] [address] [place] [address] [facility] Symptomatic COVID-19 Virus (Coronavirus) by PCR (12/21/2019 11:50 PM CDT) Component Value Ref Test Analysis Performed At [employer] Method Time Signature COVID-19 Nasopharyngeal 12/22/2019 [facility] Virus PCR to 12:11 AM [facility] MEDICAL U [facility] - CDT [facility] COVID-19 Test received-See 12/22/2019 INFECTIOUS Virus PCR to reflex to IDDL 1:22 AM CDT DISEASES U [facility] - test SARS CoV2 DIAGNOSTIC Result (COVID-19) Virus LABORATORY RT-PCR Specimen (Source) Anatomical Collection Method Collection Time Re ceived Time Location / / Volume Laterality Specimen from 12/21/2019 11:50 12/22/2019 nasopharyngeal PM CDT 12:11 AM CDT structure (specimen) Catarina Moran MD LAB - MICRO GENERAL ORDERABL ES Performing Organization Address City/[facility] Code Phon e Number INFECTIOUS DISEASES [address] [place] [address] DIAGNOSTIC LABORATORY, [address] [place] [address] INFECTIOUS DISEASES [address] [place] [address], A DIAGNOSTIC LABORATORY Respiratory Panel PCR - RUBBER GRINDER Swab (12/20/2019 12:00 PM CDT) [employer] Method Time Signature Adenovirus Not Detected NDET^Not [...] FDA approval for the testing of nasopharyngeal (RUBBER GRINDER) swabs only. This test has been verified and is performed by the Infectious Diseases Diagnostic Laboratory at [facility]. This test is used for clinical purposes [...] Code Phon e Number INFECTIOUS DISEASES [address] [place] [address] DIAGNOSTIC LABORATORY, [facility] INFECTIOUS DISEASES [address] [place] [address], A DIAGNOSTIC LABORATORY CMV antibody IgM (12/20/2019 [...] LAB - BLOOD ORDERABLES Performing Organization Address City/[facility] Phon e Number INFECTIOUS DISEASES [address] [place] [address] DIAGNOSTIC LABORATORY, [facility] INFECTIOUS DISEASES [address] [place] [address], A DIAGNOSTIC LABORATORY (ABNORMAL) CMV Antibody IgG [...] LAB - BLOOD ORDERABLES Performing Organization Address [facility] Phon e Number INFECTIOUS DISEASES [address] [place] [address] DIAGNOSTIC LABORATORY, [facility] INFECTIOUS DISEASES [address] [place] [address], A DIAGNOSTIC LABORATORY (ABNORMAL) EBV Capsid Antibody [...] LAB - BLOOD ORDERABLES Performing Organization Address City/[facility] Phon e Number INFECTIOUS DISEASES [address] [place] [address] DIAGNOSTIC LABORATORY, [facility] INFECTIOUS DISEASES [address] [place] [address], A DIAGNOSTIC LABORATORY EBV Capsid Antibody IgM [...] LAB - BLOOD ORDERABLES Performing Organization Address City/[facility]/ZIP [facility] Phon e Number INFECTIOUS DISEASES [address] [place] [address] DIAGNOSTIC LABORATORY, [facility] INFECTIOUS DISEASES [address] [place] [address], A DIAGNOSTIC LABORATORY CK total (12/20/2019 8:49 AM CDT) athologist Signature CK Total 54 30 - 300 12/20/2019 [facility]L 9:13 AM CDT [facility] Specimen Anatomical Collection Method Collection Time Receive d Time (Source) Location / / Volume Laterality Blood specimen 12/20/2019 8:49 AM 020 8:50 (specimen) CDT AM CDT Yosvany Hamilton MD LAB - BLOOD ORDERABLES Performing Organization Address City/[facility]/ZIP Code Phon e Number [facility] Mononucleosis screen (12/19/2019 10:49 AM CDT) [facility] Method Time Signature Mononucleosis Negative NEG^Negat 12/19/2019 [facility] colleen 11:11 AM CDT [facility] Specimen Anatomical Collection Method Collection Time Receive d Time (Source) Location / / Volume Laterality Blood specimen 12/19/2019 10:49 0 (specimen) AM CDT 10:50 AM CDT Amanda Blackwell MD LAB - BLOOD ORDERABLES Performing Organization Address City/State/ZIP Code Phon e Number [facility] [address] [place] [address] [facility] XR Chest Port 1 View (12/18/2019 10:31 [...] BHAVESH Blood culture (12/18/2019 10:03 PM CDT) [facility] Method Time Signature Specimen Blood Right INFECTIOUS [...] Code Phon e Number INFECTIOUS DISEASES [address] [place] [address] DIAGNOSTIC LABORATORY, [facility] INFECTIOUS DISEASES [address] [place] [address], [place] DIAGNOSTIC LABORATORY (ABNORMAL) CBC with platelets differential (12/18/2019 10:03 PM CDT) [facility] gist Method Time Signature WBC 10.7 4.0 - 12/18/2019 [facility] 11.0 10:36 PM [facility] 10e9/L CDT [facility] RBC Count 5.37 4.4 - 5.9 12/18/2019 [facility] 10e12/L 10:36 PM [facility] CDT [facility] Hemoglobin 15.8 13.3 - 12/18/2019 [facility] 17.7 g/dL 10:36 PM AR [facility]ICAL CDT [facility] Hematocrit 46.5 40.0 - 12/18/2019 [facility] 53.0 % 10:36 PM [facility] CDT [facility] MCV 87 78 - 100 12/18/2019 [facility] fl 10:36 PM [facility] CDT [facility] MCH 29.4 26.5 - 12/18/2019 [facility] 33.0 pg 10:36 PM AR MEDICAL CDT [facility] MCHC 34.0 31.5 - 12/18/2019 [facility] 36.5 g/dL 10:36 PM AR MEDICAL CDT [facility] RDW 12.9 10.0 - 12/18/2019 [facility] 15.0 % 10:36 PM AR MEDICAL CDT [facility] Platelet Count 114 (L) 150 - 450 12/18/2019 [facility] 10e9/L 10:36 PM AR MEDICAL CDT [facility] Diff Method Automated 12/18/2019 [facility] Method 10:36 PM AR MEDICAL CDT [facility] % Neutrophils 70.8 % 12/18/2019 [facility]ITY 10:36 PM [facility] CDT [facility] % Lymphocytes 18.0 % 12/18/2019 [facility] 10:36 PM AR MEDICAL CDT [facility] % Monocytes 10.7 % 12/18/2019 [facility] 10:36 PM [facility] CDT [facility] % Eosinophils 0.2 % 12/18/2019 [facility] 10:36 PM [facility] CDT [facility] % Basophils 0.1 % 12/18/2019 [facility] 10:36 PM [facility] % Immature 0.2 % 12/18/2019 [facility] Granulocytes 10:36 PM [facility] Nucleated RBCs 0 0 /100 12/18/2019 [facility] 10:36 PM [facility] Absolute 7.6 1.6 - 8.3 12/18/2019 [facility] Neutrophil 10e9/L 10:36 PM [facility] Absolute 1.9 0.8 - 5.3 12/18/2019 [facility] Lymphocytes 10e9/L 10:36 PM [facility] Absolute 1.2 0.0 - 1.3 12/18/2019 [facility] Monocytes 10e9/L 10:36 PM [facility] Absolute 0.0 0.0 - 0.7 12/18/2019 [facility] Eosinophils 10e9/L 10:36 PM [facility] Absolute 0.0 0.0 - 0.2 12/18/2019 [facility] Basophils 10e9/L 10:36 PM [facility] Abs Immature 0.0 0 - 0.4 12/18/2019 [facility] Granulocytes 10e9/L 10:36 PM [facility] Absolute 0.0 12/18/2019 [facility] Nucleated RBC 10:36 PM [facility] Specimen Anatomical Collection Method Collection Time Receive d Time (Source) Location / / Volume Laterality Blood specimen 12/18/2019 10:03 0 (specimen) PM CDT 10:23 PM CDT Jose Meade MD LAB - BLOOD ORDERABLES Performing Organization Address City/State/ZIP Code Phon e Number [facility] [address] [place] [address] [facility] Procalcitonin (12/18/2019 10:03 PM CDT) P athologist Signature Procalcitonin 0.09 ng/ml 12/18/2019 UN[facility]ITY 11:31 PM CDT [facility] Comment: 0.05-0.24 ng/ml Low risk of systemic syd terial infection. Local bacterial infection possible. ??Recommendation: As sess other clinical features of infection. Discourage antibiotics unless strong clinical suspicion for serious infection. Specimen Anatomical Collection Method Collection Time Receive d Time (Source) Location / / Volume Laterality Blood specimen 12/18/2019 10:03 0 (specimen) PM CDT 10:23 PM CDT Jose eMade MD LAB - BLOOD ORDERABLES Performing Organization Address City/[facility]/ZIP Code Phon e Number [address] (ABNORMAL) CRP inflammation (12/18/2019 10:03 PM CDT) Patholo gist Method Time Signature CRP Inflammation 36.0 (H) 0.0 - 8.0 12/18/2019 [place] [facility] mg/L 11:00 PM CDT [facility] Specimen Anatomical Collection Method Collection Time Receive d Time (Source) Location / / Volume Laterality Blood specimen 12/18/2019 10: 0 (specimen) PM CDT 10:23 PM CDT Jose Meade MD LAB - BLOOD ORDERABLES Performing Organization Address City/[facility]/ZIP Code Phon e Number [address] Nt probnp inpatient (BNP) (12/18/2019 10:03 PM CDT) P athologist Signature N-Terminal Pro 168 0 - 450 12/18/2019 [facility] BNP Inpatient pg/mL 11:00 PM CDT [facility] Comment: Reference range shown and results [...] LAB - BLOOD ORDERABLES Performing Organization Address City/[facility]/ZIP Code Phon e Number [address] [address] [facility] (ABNORMAL) Lactic acid whole blood (12/18/2019 10:03 PM CDT) P athologist Signature Lactic Acid 0.6 (L) 0.7 - 2.0 12/18/2019 UN[facility]ITY mmol/L 10:30 PM CDT [facility] Specimen Anatomical Collection Method Collection Time Receive d Time (Source) Location / / Volume Laterality Blood specimen 12/18/2019 10:03 0 (specimen) PM CDT 10:23 PM CDT Jose Meade MD LAB - BLOOD ORDERABLES Performing Organization Address City/[facility] Code Phon e Number [address] [address] [facility] (ABNORMAL) Comprehensive metabolic panel (12/18/2019 10:03 PM CDT) athologist Signature Sodium 138 133 - 144 12/18/2019 [facility] mmol/L 11:00 PM [facility] Potassium 3.8 3.4 - 5.3 12/18/2019 [facility] mmol/L 11:00 PM [facility] Comment: Specimen slightly hemolyzed, po tassium may be falsely elevated Chloride 105 98 - 110 mmol/L 12/18/2019 11:00 PM [facility] Carbon Dioxide 26 20 - 32 mmol/L 12/18/2019 11:00 PM [facility] Anion Gap 7 3 - 14 mmol/L 12/18/2019 11:00 PM [facility] Glucose 77 70 - 99 mg/dL 12/18/2019 11:00 PM [facility] Urea Nitrogen 15 7 - 30 mg/dL 12/18/2019 11:00 PM [facility] Creatinine 0.96 0.50 - 1.00 mg/dL 12/18/2019 11:00 PM [facility] GFR Estimate >90 >60 12/18/2019 11:00 PM [facility] [place] mL/min/{1.73_m2} [facility] Comment: Non GFR Calc Starting 06/03/2018, serum creatinine ba sed estimated GFR (eGFR) will be calculated using the Chronic Kidney Dise ase Epidemiology Collaboration (CKD-EPI) equation. GFR Estimate If >90 >60 mL/min/{1.73_m2} 12/18/2019 11 :00 PM [facility] Black [facility] Comment: GFR Calc Starting 06/03/2018, serum creatinine ba sed estimated GFR (eGFR) will be calculated using the Chronic Kidney Dise ase Epidemiology Collaboration (CKD-EPI) equation. Calcium 8.6 8.5 - 10.1 12/18/2019 11:00 PM [facility] [place] mg/dL [facility] Bilirubin Total 2.7 (H) 0.2 - 1.3 12/18/2019 11:00 PM [facility] [place] mg/dL [facility] Albumin 4.0 3.4 - 5.0 g/dL 12/18/2019 11:00 PM [facility] Protein Total 7.8 6.8 - 8.8 g/dL 12/18/2019 11:00 PM [facility] Alkaline Phosphatase 67 65 - 260 U/L 12/18/2019 11:00 PM [facility] ALT 23 0 - 50 U/L 12/18/2019 11:00 PM [facility] AST 27 0 - 35 U/L 12/18/2019 11:00 PM [facility] Comment: Specimen is hemolyzed which can [...] Code Phon e Number [facility] [address] [place] [address] [facility] Rapid strep group A screen POCT (12/18/2019 9:51 PM CDT) P athologist Signature Rapid Strep A neg neg Screen Internal QC OK Yes Specimen (Source) Anatomical Collection Method Collection Time Re ceived Time Location / / Volume Laterality Specimen from 12/18/2019 9:51 PM throat (specimen) CDT Jose Meade MD LAB - ENTER/EDIT POCT Group A Streptococcus PCR Throat Swab (12/18/2019 9:43 PM CDT) [facility] [employer] Method Time Signature Specimen Throat 12/18/2019 [facility] Description 9:51 PM CDT [facility] Strep Group A Not Detected NDET^Not 12/19/2019 [facility] O F PCR Detected 12:27 AM [facility] Comment: Group A Streptococcus DNA is not detecte d. FDA approved assay performed using MDdat[employer] id GeneXpert real-time PCR. Specimen Anatomical Collection Method Collection Time Receive d Time (Source) Location / / Volume Laterality Specimen from 12/18/2019 9:43 PM 12/18/19 20 throat CDT 10:01 PM CDT (specimen) Guille Cortes MD LAB - MICRO GENERAL ORDERABL ES Performing Organization Address City/State/ZIP Code Phon e Number [facility] [address] [place] [address] [facility] U OF [facility] Symptomatic COVID-19 Virus (Coronavirus) by PCR (12/18/2019 9:43 PM CDT) [facility] [employer] Method Time Signature COVID-19 Nasopharyngeal 12/18/2019 [facility] Virus PCR to 10:00 PM [facility] - CDT [facility] [place] Source BANK COVID-19 Not Detected 12/19/2019 [facility] Virus PCR to 3:40 PM CDT [facility] GENOMICS Result CENTER LABORATORY Comment: Collection of [...] N1,N2 gene targets of CoV2 and human [employer] as an internal control. A negative result [...] (Centers for Disease Control) Testing performed by [facility], Room 1-210, [address] [place] [address]. T his test was developed and its performance characteristics determined b y the [facility]. It has not been cleared or [...] Organization Address City/State/ZIP Code Phon e Number [address] [address] [facility]ENTER LABORATORY Room: 1-[address] documented in this encounter Visit Diagnoses [...] Tylor Altman RN) 10 mg, Oral, ONCE, On 12/27/19 at [...] 20 mg 0736 (Given - Provide r: yTlor Altman RN) 0823 (Given - Provider: Lin [...] Griffith RN)1946 (Given - Provider: Eulalia Mensah, BRIELLE) 0800 [...] RN)2300 (Rate/Dose Change - Provider: Massiel Gonzales, RN) 0146 (Rate/Dose Change - Provider: Massiel Gonzales RN)0408 (Rate/Dose Change - Provider: Massiel Gonzales, RN)1100 (Stopped - Provider: Lin Griffith RN) at 100 mL/hr, Intravenous, CONTINUOUS, 0 -300mL per hour, PO + IV goal is 400 mL Q4, Starting on Sat12/23/19 at 1545, Until 12/28/19 at 1244 PRN Medication Order 12/27/2019 12/28/2019 12/29/2019 acetaminophen (TYLENOL) solution 500 mg 500 mg, Oral, EVERY 6 HOURS PRN, mild pa in, fever, Starting on 12/26/19 at 0945, Maximum acetaminophen dose from all sources= 75 mg/kg/day not to exceed 4 grams/day. benzocaine 20% (HURRICAINE/TOPEX) 20 % spray 0.5-1 mL 0.5-1 mL (1-2 spray), Mouth/Throat, EVER Y 3 HOURS PRN, moderate pain, Starting on 12/20/19 at 0000 benzocaine-menthol (CEPACOL) 15-3.6 MG lozenge 1 lozenge 1 lozenge, Buccal, EVERY 1 HOUR PRN, sor e throat, Starting on 12/19/19 at 1804 diphenhydrAMINE (BENADRYL) solution 25 mg 25 mg, Oral, EVERY 6 HOURS PRN, itching, Starting on 12/19/19 at 1452 ibuprofen (ADVIL/MOTRIN) suspension 400 [...] mL, Swish & Swallow, EVERY 6 HOURS AK N, mouth sores, Starting on 12/19/19 at 1239 ondansetron (ZOFRAN) tablet 4 mg 4 mg, Oral, EVERY 6 HOURS PRN, nausea, vomiting, Start ing on Sat12/23/19 at 0040 documented in this encounter Additional Health Concerns Infection Onset Date Last Indicated Resolved Time Rule Out COVID-19 12/18/2019 12/18/2019 12/19/2019 3:4 2 PM CDT Rule Out COVID-19 12/21/2019 12/21/2019 12/22/2019 2:3 2 AM CDT Assessment Noted Time PHQ-9 Depression Total Score: 10 04/01/2019 9:14 AM CD T documented as of this encounter Care Teams Used Car Sales Manager Relationship Specialty Start Date End Date [facility] P[facility] - General 06/25/19 02/22/[address] [place] [phone] documented as of this encounter
--- OUTSIDE RECORDS SUMMARY | 2022-04-10 10:23 | XMS_ITS | Encounter Summary ---
:2000 Author Organization [place] Address [address] [place] [address]. [place] [address] Care Team Providers Name Role Phone [facility], [facility] Primary Care Provider [phone] Encounter Details Date Type Department Care Team [...] 07/27/2022 Ancillary Procedure Cardiology Cordell Juarez MD [facility] [address] [address] [id number] (Arleen valdes) 07/27/2022 Office Visit Cardiology Cordell Juarez MD [address] [place], [place] [address] (Wo rk) documented as of this encounter Visit Diagnoses Not on filedocumented in this encounter Additional Health Concerns Infection Onset Date Last Indicated Resolved Time Rule Out COVID-19 12/18/2019 12/18/2019 12/19/2019 3:4 2 PM CDT Assessment Noted Time PHQ-9 Depression Total Score: 10 04/01/2019 9:14 AM CD T documented as of this encounter Care Teams Market News Reporter Relationship Specialty Start Date End Date Arcadio, Ana [place] PCP - General 06/25/19 02/22/[address] [place] [phone] documented as of this encounter
--- OUTSIDE RECORDS SUMMARY | 2022-04-10 10:23 | XMS_ITS | Encounter Summary ---
:2000 Author Organization [place] Address [facility] [place] [address] Care Team Providers Name Role Phone [facility], [facility] Primary Care Provider [phone] Reason for Visit Reason Onset Date Comments Refill Request 11/05/2019 Refill Request 11/20/2019 Encounter Details Date Type Department Care Team Description 11/05/2019 Refill [facility] Clifford Malhotra RN Refill Request; Refill Pediatric Specialty [phone] Request [facility] [address] [place] [address] Social History Tobacco Use Types [...] Ancillary Procedure Cardiology Cordell Juarez MD [address] [place] [address] (Wo rk) 07/27/2022 Office Visit Cardiology Cordell Juarez MD [address] [place] [address] (Wo rk) documented as of this encounter 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
--- OUTSIDE RECORDS SUMMARY | 2022-04-10 10:23 | XMS_ITS | Encounter Summary ---
:2000 Author Organization [place] Address [address] [place] [address] Care Team Providers Name Role Phone [facility] Primary Care Provider Reason for Visit Reason Comments Medication Refill Encounter Details Date Type Department Care Team Description 10/16/2019 Refill [facility] Cordell Juarez MD Medication Refill Explorer Pediatric [address] Specialty Clinic [place], [place] [address] [place] [address] [place] [address] Social History Tobacco Use Types [...] Ancillary Procedure Cardiology Cordell Juarez MD [address] [place] [address] (Wo rk) 07/27/2022 Office Visit Cardiology Larry, Cordell skelton MD [address] [place] [address] (Wo rk) documented as of this encounter 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
--- OUTSIDE RECORDS SUMMARY | 2022-04-10 10:24 | XMS_ITS | Encounter Summary ---
:2000 Author Organization [place] Address [address] [place] [phone] Care Team Providers Name Role Phone Stephen [...] 07/27/2022 Ancillary Procedure Cardiology Cordell Juarez MD [address] [place] [phone] (Wo rk) 07/27/2022 Office Visit Cardiology Cordell Juarez MD [address] [place] [phone] (Wo rk) documented as of this encounter Visit Diagnoses Not on filedocumented in this encounter Additional Health Concerns Assessment Noted Time PHQ-9 Depression Total Score: 10 04/01/2019 9:14 AM CD T documented as of this encounter Care Teams Video Systems Engineer Relationship Specialty Start Date End Date Stephen Sauceda PCP - General Pediatrics 03/06/17 06/24/19 [facility] [address] [place] [address] documented as of this encounter
--- OUTSIDE RECORDS SUMMARY | 2022-04-10 10:24 | XMS_ITS | Encounter Summary ---
:2000 Author Organization [place] Address [address] [place] [address] Care Team Providers Name Role Phone Stephen [...] Ancillary Procedure Cardiology Cordell Juarez MD [address] [place] [phone] (Wo rk) 07/27/2022 Office Visit Cardiology Cordell Juarez MD [address] [place] [phone] (Wo rk) documented as of this encounter Visit Diagnoses Not on filedocumented in this encounter Care Teams Retail Asset Protection Specialist Relationship Specialty Start Date End Date Komal, Stephen J PCP - General Pediatrics 03/06/17 06/24/19 [facility] [address] [place] [address] documented as of this encounter
--- OUTSIDE RECORDS SUMMARY | 2022-04-10 10:24 | XMS_ITS | Encounter Summary ---
:2000 Author Organization [place] Address [facility] [place] [address] Care Team Providers Name Role Phone KomalStephen Primary Care Provider [facility] Primary Care Provider Magnus Zayas DO Primary Care Provider [phone] Magnus Zayas DO Unavailable [phone] Celeste Scales MD Unavailable Magnus Zayas DO Unavailable [phone] Magda Winchester MD Primary Care Provider Reason for Visit Reason Comments Medication Refill Encounter Details Date Type Department Care Team Description 02/24/2019 Refill [facility] Specialty Care [address] Juarez MD Medication Refill Center [facility] [address] [address] [place] [address] [address] [place] [address] [phone] Social History Tobacco Use Types Packs/Day Years [...] Juarez MD [address] [place], [place] [address] (Wo rk) 07/27/2022 Office Visit Cardiology Cordell Juarez MD [address] [place], [place] [phone] (Wo rk) documented as of this encounter 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 Additional Health Concerns Infection Onset Date Last Indicated Resolved Time Rule Out COVID-19 12/18/2019 12/18/2019 12/19/2019 3:4 2 PM CDT Rule Out COVID-19 12/21/2019 12/21/2019 12/22/2019 2:3 2 AM CDT documented as of this encounter Care Teams Job Press Feeder Relationship Specialty Start Date End Date Stephen Sauceda PCP - General Pediatrics 03/06/17 06/24/19 [facility] [address] [place] [address] [facility] PCP - General 06/25/19 02/22/[address] [place] [address] Magnus Zayas, PCP - General Student in [facility] 02/23/20 09/17/[address] education/training program [address] [place] [address] Magda Winchester PCP - General Family Medicine 09/18/21 [facility] Magnus Zayas, Assigned PCP 02/28/2004/06 DO 420 [facility] [address] [place] [address] Celeste Scales MD Assigned PCP 11/10/20 11/19/[address] [address] Magnus Zayas, Assigned PCP 11/20/[address] DO [address] [id number] documented as of this encounter
--- OUTSIDE RECORDS SUMMARY | 2022-04-10 10:24 | XMS_ITS | Encounter Summary ---
:2000 Author Organization [place] Address [address] [place] [address]. [place] [address] Care Team Providers Name Role Phone Komal, Stephen Grant Primary Care Provider Encounter Details Date Type Department Care Team Description 06/22/2019 Telephone [facility] Tylor Montes De Oca imaging services director Specialty Clinic [address] [place], [place] [phone] Social History Tobacco Use Types Packs/Day [...] message was left with call back information. NCE STAFF INSPECTOR documented in this encounter Plan of Treatment Upcoming Encounters Date Type Specialty Care Team Description 07/27/2022 Ancillary Procedure Cardiology Cordell Juarez MD [address] [facility] [address] [place] [address] (Wo rk) 07/27/2022 Office Visit Cardiology Cordell Juarez MD [address] [facility] [address] [place] [address] (Wo rk) documented as of this encounter Visit Diagnoses Not on filedocumented in this encounter Additional Health Concerns Assessment Noted Time PHQ-9 Depression Total Score: 10 04/01/2019 9:14 AM CD T documented as of this encounter Care Teams Forging Roll Operator Relationship Specialty Start Date End Date Stephen Sauceda PCP - General Pediatrics 03/06/17 06/24/[address] [address] documented as of this encounter
--- OUTSIDE RECORDS SUMMARY | 2022-04-10 10:24 | XMS_ITS | Encounter Summary ---
:2000 Author Organization [place] [id number] [facility] [place] [address] Care Team Providers Name Role Phone [facility] Primary Care Provider Encounter Details Date Type Department Care Team Description 06/29/2019 Telephone [facility] Pediatric Larry Cordell MD Specialty Clinic [address] [address] [address] [place] [address] [place] [address] [phone] Social History Tobacco Use Types Packs/Day Years [...] to move appointments. No answer, left VM. TH EDITOR Telephone Encounter - Florinda Robb CMA - 06/29/2019 11:59 AM CST Left VM for patient to switch appointment to 07/23 to better coordinate care in Adult congenital clinic with Dr. Juarez. TH EDITOR documented in this encounter Plan of Treatment Upcoming Encounters Date Type Specialty Care Team Description 07/27/2022 Ancillary Procedure Cardiology Cordell Juarez MD [address] [place] [address] (Wo rk) 07/27/2022 Office Visit Cardiology Cordell Juarez MD [address] [place] [address] (Wo rk) documented as of this encounter Visit Diagnoses Not on filedocumented in this encounter Additional Health Concerns Assessment Noted Time PHQ-9 Depression Total Score: 10 04/01/2019 9:14 AM CD T documented as of this encounter Care Teams Brand Ambassadors Promotional Sales Relationship Specialty Start Date End Date [facility] PCP - General 06/25/19 02/22/[address] [place] [address] documented as of this encounter
--- OUTSIDE RECORDS SUMMARY | 2022-04-10 10:24 | XMS_ITS | Encounter Summary ---
:2000 Author Organization [place] Address [address] [place] [address] Care Team Providers Name Role Phone Komal, Stephen Grant Primary Care Provider Encounter Details Date Type Department Care Team Description 03/23/2019 Orders Only [facility] S/P Fontan procedure; [facility] Atrial tachycardia (H) [address] [place] [address] Social History Tobacco Use [...] Procedure Cardiology Larry, Cordell Barajas MD [address] [facility] [address] [place] [address] (Wo rk) 07/27/2022 Office Visit Cardiology Larry, Cordell skelton MD [address] [place] [address] [place] [address] (Wo rk) documented as of this encounter [...] reflex to Microscopic (03/23/2019 2:50 PM CDT) [facility] Method Time Signature Color Urine Yellow 03/23/2019 [facility] 3:46 PM CDT [facility] Appearance Urine Clear 03/23/2019 [facility] 3:46 PM CDT [facility] Glucose Urine Negative NEG^Negat 03/23/2019 [facility] colleen mg/dL 3:46 PM CDT [facility] Bilirubin Urine Negative NEG^Negat 03/23/2019 [facility] colleen 3:46 PM CDT [facility] Ketones Urine Negative NEG^Negat 03/23/2019 [facility] colleen mg/dL 3:46 PM CDT [facility] Specific [place] 1.025 1.003 - 03/23/2019 [facility] Urine 1.035 3:46 PM CDT [facility] Blood Urine Negative NEG^Negat 03/23/2019 [facility] colleen 3:46 PM CDT [facility] pH Urine 6.0 5.0 - 7.0 03/23/2019 [facility] pH 3:46 PM CDT [facility] Protein Albumin Negative NEG^Negat 03/23/2019 [facility] Urine colleen mg/dL 3:46 PM CDT [facility] Urobilinogen 0.2 0.2 - 1.0 03/23/2019 [facility] Urine EU/dL 3:46 PM CDT [facility] Nitrite Urine Negative NEG^Negat 03/23/2019 [facility] colleen 3:46 PM CDT [facility] Leukocyte Negative NEG^Negat 03/23/2019 [facility] Esterase Urine colleen 3:46 PM CDT [facility] Source Midstream 03/23/2019 [facility] Urine 3:07 PM CDT [facility] Specimen (Source) Anatomical Collection Method Collection Time Re ceived Time Location / / Volume Laterality Examination of 03/23/2019 2:50 03/23/2019 3:07 midstream urine PM CDT PM CDT specimen (procedure) Cordell Juarez MD LAB - URINE ORDERABLES Performing Organization Address City/State/ZIP Code Phon e Number [facility] [id number] [place] [address] Comprehensive metabolic panel (03/23/2019 2:47 PM CDT) P athologist Signature Sodium 139 133 - 144 03/24/2019 [place] mmol/L 12:49 PM CDT [facility] Potassium 4.2 3.4 - 5.3 03/24/2019 [place] mmol/L 12:49 PM CDT [facility] Chloride 106 98 - 110 03/24/2019 [facility] mmol/L 12:49 PM CDT [facility] Carbon Dioxide 29 20 - 32 03/24/2019 [facility] mmol/L 12:55 PM CDT [facility] Anion Gap 4 3 - 14 03/24/2019 [place] mmol/L 12:55 PM CDT [facility] Glucose 75 70 - 99 03/24/2019 [place] mg/dL 12:55 PM CDT [facility] Urea Nitrogen 26 7 - 30 03/24/2019 [place] mg/dL 12:55 PM CDT [facility] Creatinine 0.88 0.50 - 03/24/2019 [place] 1.00 mg/dL 12:55 PM CDT [facility] GFR Estimate >90 >60 03/24/2019 [place] mL/min/{1. 12:55 PM CDT CLINICS 73_m2} [facility] Comment: Non GFR Calc Starting 06/03/2018, serum creatinine ba sed estimated GFR (eGFR) will be calculated using the Chronic Kidney Dise [facility] Epidemiology Collaboration (CKD-EPI) equation. GFR Estimate If >90 >60 mL/min/{1.73_m2} 03/24/2019 12 :55 PM [facility] Comment: GFR Calc Starting 06/03/2018, serum creatinine ba sed estimated GFR (eGFR) will be calculated using the Chronic Kidney Dise [facility] Epidemiology Collaboration (CKD-EPI) equation. Calcium 9.2 8.5 - 10.1 03/24/2019 12:55 PM [facility] mg/dL [facility] Bilirubin Total 1.1 0.2 - 1.3 mg/dL 03/24/2019 12:57 P M [facility] Albumin 4.7 3.4 - 5.0 g/dL 03/24/2019 12:57 PM [facility] Protein Total 7.9 6.8 - 8.8 g/dL 03/24/2019 12:57 PM [facility] Alkaline Phosphatase 77 65 - 260 U/L 03/24/2019 12:57 PM [facility] ALT 30 0 - 50 U/L 03/24/2019 12:57 PM [facility] AST 23 0 - 35 U/L 03/24/2019 12:57 PM [facility] Specimen Anatomical Collection Method Collection Time Receive d Time (Source) Location / / Volume Laterality Blood specimen 03/23/2019 2:47 PM 019 2:50 (specimen) CDT PM CDT Cordell Juarez MD LAB - BLOOD ORDERABLES Performing Organization Address City/State/ZIP Code Phon e Number [facility] [address] [place] [address] CBC with platelets differential (03/23/2019 2:47 PM CDT) [facility] Method Time Signature WBC 6.2 4.0 - 03/23/2019 [place] 11.0 3:08 PM T [facility] 10e9/L [facility] RBC Count 5.89 4.4 - 5.9 03/23/2019 [place] 10e12/L 3:08 PM CDT [facility] Hemoglobin 17.2 13.3 - 03/23/2019 [facility] 17.7 g/dL 3:08 PM CDT [facility] Hematocrit 49.7 40.0 - 03/23/2019 [facility] 53.0 % 3:08 PM CDT [facility] MCV 84 78 - 100 03/23/2019 [place] fl 3:08 PM CDT [facility] MCH 29.2 26.5 - 03/23/2019 [facility] 33.0 pg 3:08 PM CDT [facility] MCHC 34.6 31.5 - 03/23/2019 [facility] 36.5 g/dL 3:08 PM CDT [facility] RDW 13.3 10.0 - 03/23/2019 [place] 15.0 % 3:08 PM CDT [facility] Platelet Count 178 150 - 450 03/23/2019 [facility] 10e9/L 3:08 PM CDT [facility] % Neutrophils 69.6 % 03/23/2019 [facility] 3:08 PM CDT [facility] % Lymphocytes 19.2 % 03/23/2019 [facility] 3:08 PM CDT [facility] % Monocytes 9.8 % 03/23/2019 [facility] 3:08 PM CDT [facility] % Eosinophils 1.1 % 03/23/2019 [facility] 3:08 PM CDT [facility] % Basophils 0.3 % 03/23/2019 [facility] 3:08 PM CDT [facility] Absolute 4.3 1.6 - 8.3 03/23/2019 [place] Neutrophil 10e9/L 3:08 PM CDT [facility] Absolute 1.2 0.8 - 5.3 03/23/2019 [facility] Lymphocytes 10e9/L 3:08 PM CDT [facility] Absolute 0.6 0.0 - 1.3 03/23/2019 [facility] Monocytes 10e9/L 3:08 PM CDT [facility] Absolute 0.1 0.0 - 0.7 03/23/2019 [facility] Eosinophils 10e9/L 3:08 PM CDT [facility] Absolute 0.0 0.0 - 0.2 03/23/2019 [place] Basophils 10e9/L 3:08 PM CDT [facility] Diff Method Automated 03/23/2019 [place] Method 3:08 PM CDT [facility] Specimen Anatomical Collection Method Collection Time Receive d Time (Source) Location / / Volume Laterality Blood specimen 03/23/2019 2:47 PM 019 2:50 (specimen) CDT PM CDT Cordell Juarez MD LAB - BLOOD ORDERABLES Performing Organization Address City/State/ZIP Code Phon e Number [facility] [address] [place] [address] documented in this encounter Visit Diagnoses Diagnosis S/P Fontan procedure Other postprocedural status Atrial tachycardia (H) Other specified cardiac dysrhythmias documented in this encounter Care Teams Balance Truer Relationship Specialty Start Date End Date Stephen Sauceda PCP - General Pediatrics 03/06/17 06/24/19 [facility] [address] [place] [address] documented as of this encounter
--- OUTSIDE RECORDS SUMMARY | 2022-04-10 10:24 | XMS_ITS | Encounter Summary ---
:2000 Author Organization [place] Address [address] [place] [address] Care Team Providers Name Role Phone Stephen [...] 07/27/2022 Ancillary Procedure Cardiology Cordell Juarez MD [address] [place] [phone] (Wo rk) 07/27/2022 Office Visit Cardiology Cordell Juarez MD [address] [place] [phone] (Wo rk) documented as of this encounter Visit Diagnoses Not on filedocumented in this encounter Additional Health Concerns Assessment Noted Time PHQ-9 Depression Total Score: 10 04/01/2019 9:14 AM CD T documented as of this encounter Care Teams Underliner Relationship Specialty Start Date End Date Stephen Sauceda PCP - General Pediatrics 03/06/17 06/24/19 [facility] [address] [place] [address] documented as of this encounter
--- OUTSIDE RECORDS SUMMARY | 2022-04-10 10:24 | XMS_ITS | Encounter Summary ---
:2000 Author Organization [place] Address [address] [place] [address] Care Team Providers Name Role Phone Stephen [...] Ancillary Procedure Cardiology Cordell Juarez MD [address] [place] [address] (Wo rk) 07/27/2022 Office Visit Cardiology Cordell Juarez MD [address] [place] [phone] (Wo rk) documented as of this encounter Visit Diagnoses Not on filedocumented in this encounter Care Teams Refinery Operator Assistant Relationship Specialty Start Date End Date Komal, Stephen J PCP - General Pediatrics 03/06/17 06/24/19 [facility] [address] [place] [address] documented as of this encounter
--- OUTSIDE RECORDS SUMMARY | 2022-04-10 10:24 | XMS_ITS | Encounter Summary ---
:2000 Author Organization [place] [address] [place] [address] Care Team Providers Name Role Phone Clinic, [facility] Primary Care Provider [phone] Reason for Visit Reason Comments RECHECK S/P Fontan procedure Encounter Details Date Type Department Care Team Description 08/19/2019 Office Visit [facility] Cordell Juarez, S/P Fontan procedure Pediatric Specialty MD (Primary Dx) Clinic [address] [facility] [address] [address] [place] [address] [phone] Social History Tobacco Use Types Packs/Day Years [...] Comments Blood Pressure 111/72 08/19/2019 9:10 AM AWNING FRAME MAKER Pulse 71 08/19/2019 9:10 AM AWNING FRAME MAKER Temperature - - Respiratory Rate 18 08/19/2019 9:10 AM AWNING FRAME MAKER Oxygen Saturation 96% 08/19/2019 10:08 AM AWNING FRAME MAKER Inhaled Oxygen Concentration - - Weight 64.7 kg (142 lb 10.2 oz) 08/19/2019 9:10 AM AWNING FRAME MAKER Height 163.9 cm (5' 4.53) 08/19/2019 9:10 AM AWNING FRAME MAKER Body Mass Index 24.08 08/19/2019 9:10 AM AWNING FRAME MAKER documented in this encounter Patient Instructions Patient [...] be seen in Adult congenital clinic at [facility] [phone] or regular Saturday clinic Thank you for your visit today. If you have questions about today's visit, please call [facility] at [phone] or [facility] Nurse Line [phone] For after hours urgent needs call [phone] and ask to speak to the Pediatric Cardiology Physician systems integration manager. For emergencies call [phone] NG FRAME MAKER documented in this encounter Progress Notes Cordell Juarez MD - 08/19/2019 9:00 AM CST Pediatric Cardiology Visit Patient: Jude SKINNERN: [id number] Date of : 2000 Age: 19 yo Date of Visit: Aug 19, 2019 PCP: Stephen Sauceda Dear Dr. Sauceda, I had the pleasure of seeing your patient, Jude Bills, in the Pediatric Cardiology Clinic at [facility] on Aug 19, 2019. 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 He had catheter closure of his Fontan fenestration at the [facility] in January 2007. Jude has had some [...] much better. 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 He exercises as possible and is aware [...] June 2019 with influenza SH:Jude is attending [employer] and living in an apartment with a roommate. Planning on goingto [facility] or nursing school. Prescription Medications as of 08/19/2019 Rx Number Disp Refills Start End Last Dispensed Date Next Fill Date Owning Pharmacy acetaminophen (TYLENOL) 500 MG tablet Sig: Take 500 mg by mouth every 8 hours as needed for mild pain Class: Historical Route: Oral amoxicillin (AMOXIL) 500 MG capsule 20 capsule 3 04/01/2019 [facility] [address] [place] [address] 3 Sig: Take 4 capsules (2,000 mg) by mouth as needed (one hour prior to dental cleanings) Class: E-Prescribe Route: Oral DIGOX 250 MCG tablet 30 tablet 10 12/18/2018 [facility] [address] [place] [address] Sig: TAKE ONE TABLET BY MOUTH ONE TIME DAILY Class: E-Prescribe Escitalopram Oxalate (LEXAPRO PO) Sig: Take 10 mg by mouth daily Class: Historical Route: Oral furosemide (LASIX) 20 MG tablet 90 tablet 3 04/01/2019 [facility] [address] [place] [address] Sig: Take 1 tablet (20 mg) by mouth daily Class: E-Prescribe Route: Oral metoprolol succinate ER (TOPROL-XL) 25 MG 24 hr tablet 30 tablet 11 03/24/2019 [facility] [address] [place] [address] 3 Sig: TAKE ONE TABLET BY MOUTH ONE TIME DAILY Class: E-Prescribe montelukast (SINGULAIR) 10 MG tablet 08/28/2018 Sig: Take 10 mg by mouth At Bedtime Class: Historical Route: Oral omeprazole (PRILOSEC) [address] capsule 90 capsule 1 12/18/2018 [facility] [address] [place] [address] 3 Sig: Take 1 capsule (20 mg) by mouth daily TAKE 1 CAPSULE BY MOUTH TWICE DAILY FOR ONE WEEK THEN ONCE DAILY Class: E-Prescribe Route: Oral sildenafil (REVATIO) 20 MG tablet 90 tablet 11 06/21/2017 [facility] [address] [place] [address] 3 Sig: Take 1 tablet (20 mg) by mouth three times daily for pulmonary hypertension. Never use with nitroglycerin, terazosin or doxazosin. Class: E-Prescribe spironolactone (ALDACTONE) 25 MG tablet 30 tablet 10 10/15/2018 [facility] [address] [place] [address] 3 Sig: TAKE ONE TABLET BY MOUTH [...] care provider regularly Sincerely Cordell Juarez M.D. Factory Assembler of Pediatrics Pediatric and Adult Congenital Cardiology [facility] Pediatric Cardiology Office [phone] Adult Congenital Cardiology Triage and Scheduling [phone] CC: Jude Negar documented in this encounter [...] Face time: 5 minutes Kim Summers MA NG FRAME MAKER documented in this encounter Plan of Treatment Upcoming Encounters Date Type Specialty Care Team Description 07/27/2022 Ancillary Procedure Cardiology Cordell Juarez MD [address] [place], [place] [id number] (Wo rk) 07/27/2022 Office Visit Cardiology Cordell Juarez MD [address] [facility] [address] [place], [place] [id number] (Wo rk) documented as of this encounter Procedures Procedure Name Priority Date/Time Associated Diagnosis Comme [facility] ELECTROCARDIOGRAM Routine 08/19/2019 S/P Fontan procedu re Results for this REPORT, SUBSEQUENT - ED proc edure are in ONLY the results section. documented in this encounter Results Comprehensive metabolic panel (08/19/2019 10:25 AM AWNING FRAME MAKER) athologist Signature Sodium 139 133 - 144 08/19/2019 [facility] mmol/L 10:54 AM [facility] Potassium 3.8 3.4 - 5.3 08/19/2019 [facility] mmol/L 10:54 AM [facility] Chloride 107 98 - 110 08/19/2019 [facility] mmol/L 10:54 AM [facility] Carbon Dioxide 29 20 - 32 08/19/2019 [facility] mmol/L 11:03 AM [facility] Anion Gap 3 3 - 14 08/19/2019 [facility] mmol/L 11:03 AM [facility] Glucose 97 70 - 99 08/19/2019 [facility] mg/dL 11:03 AM [facility] Urea Nitrogen 23 7 - 30 08/19/2019 [facility] mg/dL 11:03 AM [facility] Creatinine 1.00 0.50 - 08/19/2019 [facility] 1.00 mg/dL 11:03 AM [facility] GFR Estimate >90 >60 08/19/2019 [facility] mL/min/{1. 11:03 AM [facility] 73_m2} HOSPITAL Comment: Non GFR Calc Starting 06/03/2018, serum creatinine ba sed estimated GFR (eGFR) will be calculated using the Chronic Kidney Dise [facility] Epidemiology Collaboration (CKD-EPI) equation. GFR Estimate If >90 >60 mL/min/{1.73_m2} 08/19/2019 11 :03 AM [facility] Comment: GFR Calc Starting 06/03/2018, serum creatinine ba sed estimated GFR (eGFR) will be calculated using the Chronic Kidney Dise [facility] Epidemiology Collaboration (CKD-EPI) equation. Calcium 9.3 8.5 - 10.1 mg/dL 08/19/2019 11:03 AM [facility] Bilirubin Total 1.0 0.2 - 1.3 mg/dL 08/19/2019 11:04 A [facility] Albumin 4.4 3.4 - 5.0 g/dL 08/19/2019 11:04 AM [facility] Protein Total 8.0 6.8 - 8.8 g/dL 08/19/2019 11:04 AM [facility] Alkaline Phosphatase 83 65 - 260 U/L 08/19/2019 11:04 AM [facility] ALT 27 0 - 50 U/L 08/19/2019 11:04 AM [facility] AST 20 0 - 35 U/L 08/19/2019 11:04 AM [facility] Specimen Anatomical Collection Method Collection Time Receive d Time (Source) Location / / Volume Laterality Blood specimen 08/19/2019 10:25 0 (specimen) AM AWNING FRAME MAKER 10:41 AM AWNING FRAME MAKER Cordell Juarez MD LAB - BLOOD ORDERABLES Performing Organization Address City/State/ZIP Code Phon e Number M [facility] [address] [place], [place] [address] [facility] [address] [place] [address] [facility] [phone] (ABNORMAL) CBC with platelets differential (08/19/2019 10:25 AM [facility]) [facility] gist Method Time Signature WBC 5.5 4.0 - 08/19/2019 [facility] 11.0 10:45 AM [facility] 10e9/L [facility] RBC Count 5.94 (H) 4.4 - 5.9 08/19/2019 [facility] 10e12/L 10:45 AM [facility] Hemoglobin 17.0 13.3 - 08/19/2019 [facility] 17.7 g/dL 10:45 AM [facility] Hematocrit 53.4 (H) 40.0 - 08/19/2019 [facility] 53.0 % 10:45 AM [facility] MCV 90 78 - 100 08/19/2019 [facility] fl 10:45 AM [facility] MCH 28.6 26.5 - 08/19/2019 [facility] 33.0 pg 10:45 AM [facility] MCHC 31.8 31.5 - 08/19/2019 [facility] 36.5 g/dL 10:45 AM [facility] RDW 13.2 10.0 - 08/19/2019 [facility] 15.0 % 10:45 AM [facility] Platelet Count 190 150 - 450 08/19/2019 [facility] 10e9/L 10:45 AM [facility] Diff Method Automated 08/19/2019 [facility] Method 10:45 AM [facility] % Neutrophils 71.2 % 08/19/2019 [facility] 10:45 AM [facility] % Lymphocytes 18.9 % 08/19/2019 [facility] 10:45 AM [facility] % Monocytes 8.3 % 08/19/2019 [facility] 10:45 AM [facility] % Eosinophils 0.9 % 08/19/2019 [facility] 10:45 AM [facility] % Basophils 0.5 % 08/19/2019 [facility] 10:45 AM [facility] % Immature 0.2 % 08/19/2019 [facility] Granulocytes 10:45 AM [facility] Nucleated RBCs 0 0 /100 08/19/2019 [facility] 10:45 AM [facility] Absolute 3.9 1.6 - 8.3 08/19/2019 [facility] Neutrophil 10e9/L 10:45 AM [facility] Absolute 1.0 0.8 - 5.3 08/19/2019 [facility] Lymphocytes 10e9/L 10:45 AM [facility] Absolute 0.5 0.0 - 1.3 08/19/2019 [facility] Monocytes 10e9/L 10:45 AM [facility] Absolute 0.1 0.0 - 0.7 08/19/2019 [facility] Eosinophils 10e9/L 10:45 AM [facility] Absolute 0.0 0.0 - 0.2 08/19/2019 [place] Basophils 10e9/L 10:45 AM [facility] Abs Immature 0.0 0 - 0.4 08/19/2019 [facility] Granulocytes 10e9/L 10:45 AM [facility] Absolute 0.0 08/19/2019 [place] Nucleated RBC 10:45 AM [facility] Specimen Anatomical Collection Method Collection Time Receive d Time (Source) Location / / Volume Laterality Blood specimen 08/19/2019 10:25 0 (specimen) AM AWNING FRAME MAKER 10:41 AM AWNING FRAME MAKER Cordell Juarez MD LAB - BLOOD ORDERABLES Performing Organization Address City/State/ZIP Code Phon e Number M [facility] [address], [place] [address] [facility] [address] [phone] Digoxin level (08/19/2019 10:25 AM AWNING FRAME MAKER) P athologist Signature Digoxin Level 1.1 0.5 - 2.0 08/19/2019 [place] ug/L 11:39 AM [facility] Specimen Anatomical Collection Method Collection Time Receive d Time (Source) Location / / Volume Laterality Blood specimen 08/19/2019 10:25 0 (specimen) AM AWNING FRAME MAKER 10:41 AM AWNING FRAME MAKER Cordell Juarez MD LAB - BLOOD ORDERABLES Performing Organization Address City/State/ZIP Code Phon e Number M [facility] [address] [place] [address] [phone] [facility] [address] [place] [address], [place] [phone] ELECTROCARDIOGRAM REPORT (08/19/2019) Narrative This result has an attachment that is no t available. Cordell Juarez MD PROCEDURES documented in this encounter Visit Diagnoses Diagnosis S/P Fontan procedure - Primary Other postprocedural status documented in this encounter Additional Health Concerns Assessment Noted Time PHQ-9 Depression Total Score: 10 04/01/2019 9:14 AM CD T documented as of this encounter Care Teams Business Enterprise Officer Relationship Specialty Start Date End Date Clinic, [facility] PCP - General 06/25/19 02/22/20 [address] [place] [address] documented as of this encounter
--- OUTSIDE RECORDS SUMMARY | 2022-04-10 10:24 | XMS_ITS | Encounter Summary ---
:2000 Author Organization [place] Address [address] [facility] [place] [address] Care Team Providers Name Role Phone Stephen Sauceda Primary Care Provider Reason for Referral Diagnostic Imaging MRI (Routine) - Closed Specialty Diagnoses / Procedures Referred By Contact Refer red To Contact Radiology. Diagnoses S/P Fontan procedure Cordell Juarez MD Ur Mri Procedures MRA Chest with Contrast [address] [place], [place] [id number] 4 [place] [address] Phone: Referral ID Status Reason Start Date Expiration Date Visits Requ ested Visits Authorized [id number] Closed 05/25/2019 05/24/2020 1 1 KER OUT Reason for Visit Diagnostic Imaging MRI (Routine) - Closed Specialty Diagnoses / Procedures Referred By Contact Refer red To Contact Radiology. Diagnoses S/P Fontan procedure Cordell Juarez MD Ur Mri Procedures MRA Chest with Contrast [address] [address] Count includes the [facility] [place], [place] [address] [address] [place] [address] Phone: Referral ID Status Reason Start Date Expiration Date Visits Requ ested Visits Authorized [id number] Closed 05/25/2019 05/24/2020 1 1 Encounter Details Date Type Department Care Team Description 05/25/2019 [facility], Cordell Bowiene , S/P Fontan [facility] Imaging MD procedure [address] [place] [address] [phone] Social History Tobacco Use Types Packs/Day Years [...] Cordell Juarez MD - 05/25/2019 11:59 PM KNOCKER OUT REviewed with Jude and his mother during ER visit No concerns. Follow up as scheduled. KER OUT documented in this encounter Plan of Treatment Upcoming Encounters Date Type Specialty Care Team Description 07/27/2022 Ancillary Procedure Cardiology Cordell Juarez MD Count includes the [facility] [place] [address] ( rk) 07/27/2022 Office Visit Cardiology Cordell Juarez MD [address] [facility] [place] [address] (Arleen rk) documented as of this encounter Procedures Procedure Name Priority Date/Time Associated Diagnosis Comme nts MRA CHEST W Routine 05/25/2019 2:05 PM S/P Fontan procedure R esults for this CONTRAST KNOCKER OUT procedure are i n the results section. documented in this encounter Results MRA Chest with Contrast (05/25/2019 2:05 PM KNOCKER OUT) Anatomical Region Laterality Modality Chest, SUBRAD IR PROCEDURE, UMP MR MRA, RAD MR Magnetic Resonance Specimen (Source) Anatomical Location Collection Method / Collectio n Time Received Time / Laterality Volume Impressions 05/25/2019 3:33 PM KNOCKER OUT IMPRESSION: 1. 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 2. Widely patent Fortino and Fontan anasto dyan. 3. Normal biventricular function. 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 He had catheter closure of hi s [...] documented as of this encounter Care Teams Dehydrogenation Operator Head Relationship Specialty Start Date End Date Stephen Sauceda PCP - General Pediatrics 03/06/17 06/24/[address] [address] documented as of this encounter
--- OUTSIDE RECORDS SUMMARY | 2022-04-10 10:24 | XMS_ITS | Encounter Summary ---
:2000 Author Organization [place] Address [address] [place] [address]. [place] [address] Care Team Providers Name Role Phone [facility] [place] Primary Care Provider [phone] Encounter Details Date Type Department Care Team [...] Ancillary Procedure Cardiology Cordell Juarez MD [address] [place] [address] (Wo rk) 07/27/2022 Office Visit Cardiology Cordell Juarez MD [address] [place], [place] [address] [place] [address] (Wo rk) documented as of this encounter Visit Diagnoses Not on filedocumented in this encounter Additional Health Concerns Assessment Noted Time PHQ-9 Depression Total Score: 10 04/01/2019 9:14 AM CD T documented as of this encounter Care Teams Funeral Service Manager Relationship Specialty Start Date End Date Clinic, [facility] [place] PCP - General 06/25/19 02/22/20 [address] [place] [address] documented as of this encounter
--- OUTSIDE RECORDS SUMMARY | 2022-04-10 10:24 | XMS_ITS | Encounter Summary ---
:2000 Author Organization [place] Address [address] [place] [address]. [place] [address] Care Team Providers Name Role Phone tSephen Sauceda Primary Care Provider Reason for Referral Diagnostic Imaging MRI (Routine) - Closed Specialty Diagnoses / Procedures Referred By Contact Refer red To Contact Radiology. Diagnoses S/P Fontan procedure Cordell Juarez MD Ur Mri Procedures MRI Cardiac w/contrast and flow [address] [place] [address] [address] [place] [address] Phone: Referral ID Status Reason Start Date Expiration Date Visits Requ ested Visits Authorized [id number] Closed 04/01/2019 03/31/2020 1 1 Reason for Visit Reason Comments RECHECK S/P Fontan procedure (Routine) - Closed Specialty Diagnoses / Procedures Referred By Contact Refer red To Contact Diagnoses S/P Fontan procedure [facility] [address] [place], [place] [phone] Referral ID Status Reason Start Date Expiration Date Visits Requ ested Visits Authorized [id number] Closed 01/21/2019 01/21/2020 1 1 Encounter Details Date Type Department Care Team Description 04/01/2019 Office Visit Cordell Smith, S/P Fontan procedure; Pediatric Specialty Hypoplastic left heart syndrome Clinic [address] [address] [place] [address] [phone] Social History Tobacco Use Types Packs/Day Years [...] needed Follow-up: Please schedule cardiac MRI/MRA - [facility] 4 months with BP and sat check to review MRI Call if any concerns: Dr Juarez's office [phone] Hospital [phone] Environmental Manager sales promotion representative Clinic [phone] Find dentist Find new primary physician IF local- try Jack - Rui Mike Thank you for your visit today. If you have questions about today's visit, please call [facility] clinic at [phone] or [facility] Nurse Line [phone] For after hours urgent needs call [phone] and ask to speak to the Pediatric Cardiology Physician sales promotion representative. For emergencies call [phone]. documented in this encounter Progress Notes Cordell Juarez MD - 04/01/2019 10:30 AM CDT Pediatric Cardiology Visit - Incomplete Patient: Jude Bills Date of : 2000 Age: 16 years 7 months Date of Visit: Apr 01, 2019 PCP: Stephen Sauceda Dear Dr. Sauceda, I had the pleasure of seeing your patient, Jude Bills, in the Pediatric Cardiology Clinic at [facility] on Apr 01, 2019. 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 He underwent a central shunt, followed by a Fortino procedure and completion of a Fontan procedure at the [facility] in aeronautical drafter. He had catheter closure of his Fontan fenestration at the [facility] in January 2007. Jude has had [...] living with a friend. 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 Jude reports that he is still covered [...] 250 MCG tablet 30 tablet 10 12/18/2018 [facility] [address] [place] [address] Sig: TAKE ONE TABLET BY MOUTH ONE TIME DAILY Class: E-Prescribe Escitalopram Oxalate (LEXAPRO PO) Sig: Take 10 mg by mouth daily Class: Historical Route: Oral furosemide (LASIX) 20 MG tablet 15 tablet 0 12/30/2018 [facility] [address] [place] [address] Sig: Take one-half tablet by mouth once daily. Class: E-Prescribe metoprolol succinate ER (TOPROL-XL) 25 MG 24 hr tablet 30 tablet 11 03/24/2019 [facility] [address] [place] [address] Sig: TAKE ONE TABLET BY MOUTH ONE TIME DAILY Class: E-Prescribe montelukast (SINGULAIR) 10 MG tablet 08/28/2018 Sig: Take 10 mg by mouth At Bedtime Class: Historical Route: Oral omeprazole (PRILOSEC) [address] capsule 90 capsule 1 12/18/2018 [facility] [address] [place] [address] Sig: Take 1 capsule (20 mg) by mouth daily TAKE 1 CAPSULE BY MOUTH TWICE DAILY FOR ONE WEEK THEN ONCE DAILY Class: E-Prescribe Route: Oral sildenafil (REVATIO) 20 MG tablet 90 tablet 11 06/21/2017 [facility] [address] [place] [address] Sig: Take 1 tablet (20 mg) by mouth three times daily for pulmonary hypertension. Never use with nitroglycerin, terazosin or doxazosin. Class: E-Prescribe spironolactone (ALDACTONE) 25 MG tablet 30 tablet 10 10/15/2018 [facility] [address] [place] [address] 3 Sig: TAKE ONE TABLET BY MOUTH ONE TIME DAILY Class: E-Prescribe traZODone (DESYREL) 50 MG tablet Sig: Take 50 mg by mouth At Bedtime Class: Historical Route: Oral Taking 20 mg lasix daily FH/SH: Jude and his family live in [place]. His mother is a nurse at [employer]. They are planning lots of [...] activity level. Sincerely, Sterling Rivers MD Pediatric Psychologist Industrial Organizational [facility] Jude has been on anticoagulation with [...] time of this visit. Cordell Juarez M.D. Child Care Attendant School of Pediatrics Pediatric and Adult Congenital Cardiology [facility] Pediatric Cardiology Office [phone] Adult Congenital Cardiology Triage and Scheduling [phone] [facility] documented in this encounter Nursing Notes Kim [...] Ancillary Procedure Cardiology Cordell Juarez MD [address] [place] [address] (Wo rk) 07/27/2022 Office Visit Cardiology Cordell Juarez MD [address] [place], [place] [address] (Wo rk) documented as of this encounter Procedures Procedure Name Priority Date/Time Associated Diagnosis Comme nts [facility] ELECTROCARDIOGRAM Routine 04/01/2019 S/P Fontan procedu re Results for this REPORT, SUBSEQUENT - ED proc edure are in ONLY the results section. documented in this encounter Results MRI Cardiac w/contrast and flow (05/25/2019 2:06 PM INSPECTOR [employer]LET [employer]UGS) Anatomical Region Laterality Modality Cardio, SUBRAD MR BODY, UMP MR CHEST Mag netic Resonance Specimen (Source) Anatomical Location Collection Method / Collectio n Time Received Time / Laterality Volume Impressions 05/25/2019 3:33 PM INS[employer]OR [employer]UGS IMPRESSION: 1. 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 2. Widely patent Fortino and Fontan anasto dyan. 3. Normal biventricular function. 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 He had catheter closure of hi s [...] documented as of this encounter Care Teams Solid Die Cutter Relationship Specialty Start Date End Date Stephen Sauceda PCP - General Pediatrics 03/06/17 06/24/19 [facility] [address] [place] [address] documented as of this encounter
--- OUTSIDE RECORDS SUMMARY | 2022-04-10 10:24 | XMS_ITS | Encounter Summary ---
:2000 Author Organization [place] Address [address] [place] [address] Care Team Providers Name Role Phone Stephen [...] HC DOPPLER ECHO COLOR FLOW VELOCITY MAP [address] [place] [id number] [place] [address] HC STATISTIC IV [place]USH [place] [address] [address] [place] [address] Phone: Fax: Referral ID Status Reason Start Date Expiration Date Visits Requ ested Visits Authorized [id number] Closed 01/21/2019 01/21/2020 1 1 (Routine) - Closed Specialty Diagnoses / Procedures Referred By Contact Refer red To Contact Diagnoses S/P Fontan procedure [facility] [address] [place], [place] [phone] Referral ID Status Reason Start Date Expiration Date Visits Requ ested Visits Authorized [id number] Closed 01/21/2019 01/21/2020 1 1 Reason for Visit Reason Comments Orders Encounter Details Date Type Department Care Team Description 01/21/[address] [facility] Arthur Snyder RN Orders Clinic [facility] [address] [place] [address] Social History Tobacco Use Types [...] Juarez MD [facility] [id number] (Wo rk) 07/27/2022 Office Visit Cardiology Cordell Juarez MD [address] [address] (Wo rk) Scheduled Referrals Name Type Priority [...] AM CDT Narrative 09/09/2020 9:38 AM CDT [id number]^JAVIER^CORDELL^RYAN ? Study ID: [id number] ?[facility] ?[facility] ?[address] ?[place] [address] ? Pediatric Echocardiogram Name: JUDE BILLS Study [...] note might be different from the original. [id number]^JAVIER^CORDELL^RYAN Study ID: [id number] [facility] [place] [address] Pediatric Echocardiogram Name: RENÉCHRISJAMIE Marquis Study Date: [...] with platelets differential (03/23/2019 2:47 PM CDT) [facility] Method Time Signature WBC 6.2 4.0 - 03/23/2019 [facility] 11.0 3:08 PM CDT CLIN[facility] 10e9/L [place] RBC Count 5.89 4.4 - 5.9 03/23/2019 [facility] 10e12/L 3:08 PM CDT [facility] [place] Hemoglobin 17.2 13.3 - 03/23/2019 [facility] 17.7 g/dL 3:08 PM CDT [facility] [place] Hematocrit 49.7 40.0 - 03/23/2019 [facility] 53.0 % 3:08 PM CDT [facility] [place] MCV 84 78 - 100 03/23/2019 [facility] fl 3:08 PM CDT [facility] [place] MCH 29.2 26.5 - 03/23/2019 [facility] 33.0 pg 3:08 PM CDT [facility] [place] MCHC 34.6 31.5 - 03/23/2019 [facility] 36.5 g/dL 3:08 PM CDT [facility] [place] RDW 13.3 10.0 - 03/23/2019 [facility] 15.0 % 3:08 PM CDT [facility] [place] Platelet Count 178 150 - 450 03/23/2019 [facility] 10e9/L 3:08 PM CDT [facility] % Neutrophils 69.6 % 03/23/2019 [facility] 3:08 PM CDT [facility] [place] % Lymphocytes 19.2 % 03/23/2019 [facility] 3:08 PM CDT [facility] [place] % Monocytes 9.8 % 03/23/2019 [facility] 3:08 PM CDT [facility] [place] % Eosinophils 1.1 % 03/23/2019 [facility] 3:08 PM CDT [facility] [place] % Basophils 0.3 % 03/23/2019 [facility] 3:08 PM CDT [facility] [place] Absolute 4.3 1.6 - 8.3 03/23/2019 [facility] Neutrophil 10e9/L 3:08 PM CDT [facility] [place] Absolute 1.2 0.8 - 5.3 03/23/2019 [facility] Lymphocytes 10e9/L 3:08 PM CDT [facility] [place] Absolute 0.6 0.0 - 1.3 03/23/2019 [facility] Monocytes 10e9/L 3:08 PM CDT [facility] [place] Absolute 0.1 0.0 - 0.7 03/23/2019 [facility] Eosinophils 10e9/L 3:08 PM CDT [facility] [place] Absolute 0.0 0.0 - 0.2 03/23/2019 [facility] Basophils 10e9/L 3:08 PM CDT [facility] [place] Diff Method Automated 03/23/2019 [facility] Method 3:08 PM CDT [facility] [place] Specimen Anatomical Collection Method Collection Time Receive d Time (Source) Location / / Volume Laterality Blood specimen 03/23/2019 2:47 PM 019 2:50 (specimen) CDT PM CDT Cordell Juarez MD LAB - BLOOD ORDERABLES Performing Organization Address City/State/ZIP Code Phon e Number [facility] [address] [place] [address] Comprehensive metabolic panel (03/23/2019 2:47 PM CDT) athologist Signature Sodium 139 133 - 144 03/24/2019 [facility] mmol/L 12:49 PM CDT [facility] Potassium 4.2 3.4 - 5.3 03/24/2019 [facility] mmol/L 12:49 PM CDT [facility] Chloride 106 98 - 110 03/24/2019 [facility] mmol/L 12:49 PM CDT [facility] Carbon Dioxide 29 20 - 32 03/24/2019 [place] mmol/L 12:55 PM CDT [facility] Anion Gap 4 3 - 14 03/24/2019 [facility] mmol/L 12:55 PM CDT [facility] Glucose 75 70 - 99 03/24/2019 [facility] mg/dL 12:55 PM CDT [facility] Urea Nitrogen 26 7 - 30 03/24/2019 [facility] mg/dL 12:55 PM CDT [facility] Creatinine 0.88 0.50 - 03/24/2019 [facility] 1.00 mg/dL 12:55 PM CDT CLINICS [facility] GFR Estimate >90 >60 03/24/2019 [facility] mL/min/{1. 12:55 PM CDT CLINICS 73_m2} [facility] Comment: Non GFR Calc Starting 06/03/2018, serum creatinine ba sed estimated GFR (eGFR) will be calculated using the Chronic Kidney Dise ase Epidemiology Collaboration (CKD-EPI) equation. GFR Estimate If >90 >60 mL/min/{1.73_m2} 03/24/2019 12 :55 PM [facility] Black T [facility] Comment: GFR Calc Starting 06/03/2018, serum creatinine ba sed estimated GFR (eGFR) will be calculated using the Chronic Kidney Dise ase Epidemiology Collaboration (CKD-EPI) equation. Calcium 9.2 8.5 - 10.1 03/24/2019 12:55 PM [facility] mg/dL T [facility] Bilirubin Total 1.1 0.2 - 1.3 mg/dL 03/24/2019 12:57 P [facility] Albumin 4.7 3.4 - 5.0 g/dL 03/24/2019 12:57 PM [facility] Protein Total 7.9 6.8 - 8.8 g/dL 03/24/2019 12:57 PM [facility] Alkaline Phosphatase 77 65 - 260 U/L 03/24/2019 12:57 PM [facility] ALT 30 0 - 50 U/L 03/24/2019 12:57 PM [facility] AST 23 0 - 35 U/L 03/24/2019 12:57 PM [facility] Specimen Anatomical Collection Method Collection Time Receive d Time (Source) Location / / Volume Laterality Blood specimen 03/23/2019 2:47 PM 019 2:50 (specimen) CDT PM CDT Cordell Juarez MD LAB - BLOOD ORDERABLES Performing Organization Address City/State/ZIP Code Phon e Number [facility] [place] [place] [address] [place] [address] documented in this encounter Visit Diagnoses Diagnosis S/P Fontan procedure - Primary Other postprocedural status S/P Fontan procedure Other postprocedural status documented in this encounter Care Teams Tv News Director Relationship Specialty Start Date End Date Stephen Sauceda PCP - General Pediatrics 03/06/17 06/24/19 [facility] [address] [place] [address] documented as of this encounter
--- OUTSIDE RECORDS SUMMARY | 2022-04-10 10:24 | XMS_ITS | Encounter Summary ---
:2000 Author Organization [place] Address [address] [place] [address] Care Team Providers Name Role Phone KomalStephen Primary Care Provider [facility] Primary Care Provider [phone] Magnus Zayas DO Primary Care Provider [phone] Magnus Zayas DO Unavailable [phone] Celeste Scales MD Unavailable Magnus Zayas DO Unavailable [phone] Magda Winchester MD Primary Care Provider Reason [...] DOPPLER ECHO PULSED, F/U OR LIMITED [address] [facility] [address] [address] HC DOPPLER ECHO [place] [address] [place] [address] Phone: Referral ID Status Reason Start Date Expiration Date Visits Requ ested Visits Authorized [id number] Closed 04/01/2019 03/31/2020 1 1 Encounter Details Date Type Department Care Team Description 04/01/[address] [facility] Cordell Juarez, S/P Fontan procedure Pediatric Specialty (Primary Dx) Clinic [address] [address] [address] [place], [place] [address] [phone] Social History Tobacco Use Types Packs/Day Years [...] 07/27/2022 Ancillary Procedure Cardiology Cordell Juarez MD [address] [place] [address] (Wo rk) 07/27/2022 Office Visit Cardiology Cordell Juarez MD [address] [place] [address] (Wo rk) documented as of this encounter Results ECHO PEDIATRIC CONGENITAL (04/01/2019 10:29 AM CDT) Anatomical Region Laterality Modality Echocardiography Specimen (Source) Anatomical Collection Method Collection Time Re ceived Time Location / / Volume Laterality 04/01/2019 10:13 AM CDT Narrative 04/01/2019 11:02 AM CDT [id number]^JAVIER^AYLIN ?Study ID: [id number] ?[facility] ?[facility] ?[address] ?[place] [address] ? Pediatric Echocardiogram __ Name: JUDE BILLS [...] note might be different from the original. [id number]^JAVIER^CORDELL^RYAN Study ID: [id number] [facility] [place] [id number] Pediatric Echocardiogram __ Name: JUDE BILLS Study [...] documented as of this encounter Care Teams Stoneworker Relationship Specialty Start Date End Date Stephen Sauecda PCP - General Pediatrics 03/06/17 06/24/[address] [address] [facility] PCP - General 06/25/19 02/22/[address] [place] [address] Magnus Zayas, PCP - General Student in [facility] 02/23/20 09/17/[address] education/training program [address] [place] [address] [id number] Magda Winchester PCP - General Family Medicine 09/18/21 MD [facility] Magnus Zayas, Assigned PCP 02/28/2004/[address] [place], [place] [address] Celeste Scales MD Assigned PCP 11/10/20 11/19/[address] [place] [address] Magnus Zayas, Assigned PCP 11/20/20 DO [address] [facility] [address] [place], [place] [address] documented as of this encounter
--- OUTSIDE RECORDS SUMMARY | 2022-04-10 10:24 | XMS_ITS | Encounter Summary ---
:2000 Author Organization [place] Address [facility] [place] [address] Care Team Providers Name Role Phone Komal, Stephen Grant Primary Care Provider Encounter Details Date Type Department Care Team Description 01/20/2019 Ancillary Procedure [facility] Spec, Nurse Only Explorer Pediatric Med Specialty Clinic Explorer [facility] [address]th [address] [place] [address] Social History Tobacco Use Types Packs/Day [...] (willing/able to accept information) Yes Any cultural factors/buddhist beliefs that may influence understanding or compliance? No Teaching Concerns Addressed Reviewed diary and proper care of monitor with parent(s)/guardian(s) and patient. Family instructed to return monitor via set builder/mailbox after 7 day(s) . For questions or problems, call [employer] with number provided 07/01. Comments Patient will send monitor back via set builder/mailbox. Instructional Materials Used/Given 7 day(s) Zio Patch Holter Monitor Time Spent With Patient 15 minutes Teaching Completed By Irish Keys CMA documented in this encounter Plan of Treatment Upcoming Encounters Date Type Specialty Care Team Description 07/27/2022 Ancillary Procedure Cardiology Cordell Juarez MD [address] [employer] [place] [id number] [place] [address] (Wo rk) 07/27/2022 Office Visit Cardiology Cordell Juarez MD [address] [employer] [facility] [place] [address] (Wo rk) Pending Results Name Type Priority Associated Diagnoses Date/Ti ky Zio Patch Holter Cardiac Services STAT Atrial arrhythmia 12:21 PM Adult Pediatric CDT Greater than 48 hrs documented as of this encounter Visit Diagnoses Not on filedocumented in this encounter Care Teams School Boat Driver Relationship Specialty Start Date End Date Stephen Sauceda PCP - General Pediatrics 03/06/17 06/24/19 [facility] [address] [place] [address] documented as of this encounter
--- OUTSIDE RECORDS SUMMARY | 2022-04-10 10:24 | XMS_ITS | Encounter Summary ---
:2000 Author Organization [place] Address [address] [place] [address] Care Team Providers Name Role Phone [facility] Primary Care Provider [phone] Encounter Details Date Type Department Care Team [...] Ancillary Procedure Cardiology Cordell Juarez MD [address] [place] [address] (Wo rk) 07/27/2022 Office Visit Cardiology Cordell Juarez MD [address] [place], [place] [address] [place] [address] (Wo rk) documented as of this encounter Visit Diagnoses Not on filedocumented in this encounter Additional Health Concerns Assessment Noted Time PHQ-9 Depression Total Score: 10 04/01/2019 9:14 AM CD T documented as of this encounter Care Teams Orthopedic Surgeon Relationship Specialty Start Date End Date [facility], [facility] [place] PCP - General 06/25/19 02/22/20 [address] [place] [address] documented as of this encounter
--- OUTSIDE RECORDS SUMMARY | 2022-04-10 10:24 | XMS_ITS | Encounter Summary ---
:2000 Author Organization [place] Address [facility] [place] [address] Care Team Providers Name Role Phone KomalStephen Primary Care Provider [facility] Primary Care Provider Magnus Zayas DO Primary Care Provider Magnus Zayas DO Unavailable [phone] Celeste Scales MD Unavailable Magnus Zayas DO Unavailable [phone] Magda Winchester MD Primary Care Provider Reason for Visit Reason Onset Date Comments Refill Request 03/02/2019 Encounter Details Date Type Department Care Team Description 03/02/[address] [facility] Pediatric Larry Cordell MD Refill Request Specialty Clinic [facility] [address] [facility] [address] [address] [facility] [address] [address] [address] [place] [address] [phone] Social History Tobacco Use Types Packs/Day Years [...] Ancillary Procedure Cardiology Cordell Juarez MD [address] [facility]6 [place], [place] [address] (Wo rk) 07/27/2022 Office Visit Cardiology Cordell Juarez MD [address] [facility]6 [place], [place] 745084 (Wo rk) documented as of this encounter Visit Diagnoses Not on filedocumented in this encounter Additional Health Concerns Infection Onset Date Last Indicated Resolved Time Rule Out COVID-19 12/18/2019 12/18/2019 12/19/2019 3:4 2 PM CDT Rule Out COVID-19 12/21/2019 12/21/2019 12/22/2019 2:3 2 AM CDT documented as of this encounter Care Teams El Teacher Relationship Specialty Start Date End Date Stephen Sauceda PCP - General Pediatrics 03/06/17 06/24/19 [facility] [address] [place] [address] [facility] PCP - General 06/25/19 02/22/20 [address] [place] [address] Magnus Zayas, PCP - General Student in [facility] 02/23/20 09/17/[address] education/training program [address] [place] [address] Magda Winchester PCP - General Family Medicine 09/18/21 MD [place] Magnus Zayas, Assigned PCP 02/28/2004/[address] [address] Celeste Scales MD Assigned PCP 11/10/20 11/19/[address] [id number] Magnus Zayas, Assigned PCP 11/20/[address] [place] [phone] documented as of this encounter
--- OUTSIDE RECORDS SUMMARY | 2022-04-10 10:24 | XMS_ITS | Encounter Summary ---
:2000 Author Organization [address] [place] [address] Care Team Providers Name Role Phone KomalStephen white Rudy Primary Care Provider Reason for Visit Reason Onset Date Comments Appointment 01/19/2019 Encounter Details Date Type Department Care Team Description 01/19/2019 Telephone [facility] Pediatric Cordell Juarez MD Appointment Specialty Clinic [address] [address] [address] [facility] [place] [address] [facility] [place] [address] [phone] Social History Tobacco Use Types Packs/Day Years [...] Mom called, inquiring about transferring patient to [facility] from [facility] with Dr. Cordell Juarez. documented in this encounter Plan of Treatment Upcoming Encounters Date Type Specialty Care Team Description 07/27/2022 Ancillary Procedure Cardiology Cordell Juarez MD [address] [facility] [address] [place] [address] (Wo rk) 07/27/2022 Office Visit Cardiology Cordell Juarez MD [address] [place] [address] (Wo rk) documented as of this encounter Visit Diagnoses Not on filedocumented in this encounter Care Teams Medical Voucher Clerk Relationship Specialty Start Date End Date Stephen Sauceda PCP - General Pediatrics 03/06/17 06/24/19 [facility] [address] [place] [address] documented as of this encounter
--- OUTSIDE RECORDS SUMMARY | 2022-04-10 10:24 | XMS_ITS | Encounter Summary ---
:2000 Author Organization [place] Address [facility]0 [facility] [place] [address] Care Team Providers Name Role Phone Stephen Sauceda Primary Care Provider Reason for Referral Diagnostic Imaging MRI (Routine) - Closed Specialty Diagnoses / Procedures Referred By Contact Refer red To Contact Radiology. Diagnoses S/P Fontan procedure Cordell Juarez MD Ur Mri Procedures MRI Cardiac w/contrast and flow [facility] [facility] [address] [place], [place] [address] 4 [place] [address] Phone: Referral ID Status Reason Start Date Expiration Date Visits Requ ested Visits Authorized [id number] Closed 04/01/2019 03/31/2020 1 1 DE SALES DIRECTOR Reason for Visit Diagnostic Imaging MRI (Routine) - Closed Specialty Diagnoses / Procedures Referred By Contact Refer red To Contact Radiology. Diagnoses S/P Fontan procedure Cordell Juarez MD Ur Mri Procedures MRI Cardiac w/contrast and flow [address] [place], [place] [address] 4 [place] [address] Phone: Referral ID Status Reason Start Date Expiration Date Visits Requ ested Visits Authorized [id number] Closed 04/01/2019 03/31/2020 1 1 Encounter Details Date Type Department Care Team Description 05/25/2019 Hospital Encounter [facility] Larry, Cordell Barajas , S/P Fontan [facility] Imaging MD procedure [address] [place] [address] [phone] Social History Tobacco Use Types Packs/Day Years [...] Cordell Juarez MD [address] [facility]556 [place], [place] [address] (Wo rk) 07/27/2022 Office Visit Cardiology Cordell Juarez MD [address] [place], [place] [address] (Wo rk) documented as of this encounter Procedures Procedure Name Priority Date/Time Associated Diagnosis Comme nts MR CARDIAC W Routine 05/25/2019 2:06 PM S/P Fontan procedure R esults for this CONTRAST W FLOW INSIDE SALES DIRECTOR procedure ar e in QUANT the results section. documented in this encounter Results MRI Cardiac w/contrast and flow (05/25/2019 2:06 PM INSIDE SALES DIRECTOR) Anatomical Region Laterality Modality Cardio, SUBRAD MR BODY, UMP MR CHEST Mag netic Resonance Specimen (Source) Anatomical Location Collection Method / Collectio n Time Received Time / Laterality Volume Impressions 05/25/2019 3:33 PM INSIDE SALES DIRECTOR IMPRESSION: 1. 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 2. Widely patent Fortino and Fontan anasto dyan. 3. Normal biventricular function. 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 He had catheter closure of hi s [...] gadobutrol (GADAVIST) injection Given 05/25/2019 12:42 PM INSIDE SALES DIRECTOR 6. 2 mLs 7.5 mL 7.5 mL, Intravenous, ONCE, On 05/25/19 at 1245, For 1 dose documented in this encounter Additional Health Concerns Assessment Noted Time PHQ-9 Depression Total Score: 10 04/01/2019 9:14 AM CD T documented as of this encounter Care Teams Electronics Detail Draftsperson Relationship Specialty Start Date End Date Stephen Sauceda PCP - General Pediatrics 03/06/17 06/24/[address] [address] documented as of this encounter
--- OUTSIDE RECORDS SUMMARY | 2022-04-10 10:24 | XMS_ITS | Encounter Summary ---
:2000 Author Organization [place] Address [facility] [place] [address] Care Team Providers Name Role Phone Clinic, [facility] Primary Care Provider [phone] Reason for Visit Reason Comments Flu Symptoms Encounter Details Date Type Department Care Team Description 06/25/2019 Emergency [facility] Camille Bunch MD Influenza Emergency Department [address] [place] [address] [place] [phone] Social History Tobacco Use Types Packs/Day Years [...] Comments Blood Pressure 121/70 06/25/2019 3:44 PM SENIOR MICROSOFT NET DEVELOPER Pulse - - Temperature 36.6 ??C (97.9 ??F) 06/25/2019 3:44 PM SENIOR MICROSOFT NET DEVELOPER Respiratory Rate 14 06/25/2019 3:44 PM SENIOR MICROSOFT NET DEVELOPER Oxygen Saturation 97% 06/25/2019 3:44 PM SENIOR MICROSOFT NET DEVELOPER Inhaled Oxygen Concentration - - Weight 64.4 kg (141 lb 15.6 oz) 06/25/2019 11:02 AM SENIOR MICROSOFT NET DEVELOPER Height - - Body Mass Index 24.06 [...] with 0.4 and 0.8 ml, call us ([phone]) or check with your doctor about the [...] pain.) - Upset stomach or vomiting - skilled nursing use may cause bleeding in the stomach or intestines. See his doctor if he has black or bloody vomit or stool (poop). 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 Jude has had some [...] [place] now with Fenestrated Fontan Done at [facility] Family History: Adopted, FH unknown Social History: [...] time of the visit.. Cordell Herrera M.D. Secondary School Teacher Librarian of Pediatrics Pediatric and Adult Congenital Cardiology [facility] Pediatric Cardiology Office [phone] Adult Congenital Cardiology Triage and Scheduling [phone] Review of Systems: ROS: 10 point ROS [...] PO2V, HCO3V in the last 168 hours. OR MICROSOFT NET DEVELOPER documented in this encounter ED Notes Kirsten [...] the end of May. Seen in the [facility] ED on 06/16/19 and diagnosed with influenza B. Was prescribed tamiflu, but did not take any of it. Since then has not really improved. Earlier this week having significant sore throat and difficulty breathing. Also having pain in the center of his chest that he describes as heartpain. Was seen again in the [facility] ED on Friday 06/23. Was given a [...] [place] now with Fenestrated Fontan Done at [facility] Past Surgical History: Procedure Laterality Date ??? [...] on his own. He works in a [employer] facility. I have reviewed the Medications, Allergies, Past Medical and Surgical History, and Social History inthe [facility] system. Review of Systems Please see HPI [...] Micky Aguilar MD Pediatrics resident PGY3 06/25/2019 [facility] EMERGENCY DEPARTMENT This data collected with the Resident working in the Emergency Department. Patient was seen and evaluated by myself and I repeated the history and physical exam with the patient. The plan of care was discussed with them. The norton portions of the note including the entire assessment and plan reflect my d ocumentation. Dariusz Sheppard MD 06/26/19 1133 OR MICROSOFT NET DEVELOPER documented in this encounter Plan of Treatment Upcoming Encounters Date Type Specialty Care Team Description 07/27/2022 Ancillary Procedure Cardiology Larry, Cordell Barajas MD [address] [facility] [place] [id number] (Wo rk) 07/27/2022 Office Visit Cardiology Larry, Cordell skleton MD [address] [facility] [place] [address] (Wo rk) documented as of this encounter Procedures Procedure Name Priority Date/Time Associated Comments Diagnosis ECHO PEDIATRIC STAT 06/25/2019 2:30 PM Results for this COMPLETE SENIOR MICROSOFT NET DEVELOPER procedure are i n the results section. EBV CAPSID ANTIBODY Routine 06/25/2019 12:21 Influenza Resu lts for this IGM PM SENIOR MI[employer]OSOFT NET DEVELOPER procedure are i n the results section. EBV CAPSID ANTIBODY Routine 06/25/2019 12:21 Influenza Resu lts for this IGG PM SENIOR MICROSOFT NET DEVELOPER procedure are i n the results section. EBV DNA PCR Routine 06/25/2019 12:21 Influenza Results for this QUANTITATIVE WHOLE PM SENIOR MICROSOFT NET DEVELOPER procedure are in BLOOD the results section. CBC WITH PLATELETS & STAT 06/25/2019 12:21 Res ults for this DIFFERENTIAL PM SENIOR MICROSOFT NET DEVELOPER procedure are i n the results section. TROPONIN I Routine 06/25/2019 12:21 Results for this PM SENIOR MICROSOFT NET DEVELOPER procedure are i n the results section. RESPIRATORY SYNCYTIAL STAT 06/25/2019 12:21 Re sults for this VIRUS RSV ANTIGEN PM SENIOR MICROSOFT NET DEVELOPER procedure are in the results section. NT PROBNP INPATIENT STAT 06/25/2019 12:21 Resu lts for this PM SENIOR MICROSOFT NET DEVELOPER procedure are i n the results section. CRP INFLAMMATION STAT 06/25/2019 12:21 Results for this PM SENIOR MICROSOFT NET DEVELOPER procedure are i n the results section. COMPREHENSIVE STAT 06/25/2019 12:21 Results fo r this METABOLIC PANEL PM SENIOR MICROSOFT NET DEVELOPER procedure ar e in the results section. BLOOD CULTURE STAT 06/25/2019 12:21 Influenza Results fo r this PM SENIOR MI[employer]OSO[employer] NET DEVELOPER procedure are i n the results section. XR CHEST 2 VIEWS STAT 06/25/2019 12:12 Results for this PM SENIOR MICROSOFT NET DEVELOPER procedure are i n the results section. documented in this encounter Results ECHO PEDIATRIC COMPLETE (06/25/2019 2:30 PM SENIOR MICROSOFT NET DEVELOPER) Anatomical Region Laterality Modality Echocardiography Specimen (Source) Anatomical Collection Method Collection Time Re ceived Time Location / / Volume Laterality 06/25/2019 2:04 PM SENIOR MICROSOFT NET DEVELOPER Narrative 06/25/2019 2:50 PM SENIOR MICROSOFT NET DEVELOPER [id number]^MUHAR^MICKY ?Study ID: [id number] ?[facility] ?[facility] ?[address] ?[place] [address] ? Pediatric Echocardiogram __ Name: JUDE MERRITT [...] note might be different from the original. [id number]^LAUREN^MICKY Study ID: [id number] [facility]'s [address] [place] [address] Pediatric Echocardiogram __ Name: JUDE MERRITT Study Date: 06/25/2019 02:04 PM [facility] Age[facility] 19 y[facility] : 2000 Gender: Male [...] EBV Capsid Antibody IgM (06/25/2019 12:21 PM SENIOR MICROSOFT NET DEVELOPER) P athologist Signature EBV Capsid 1.0 (H) 0.0 - 0.8 06/26/2019 [facility] Antibody IgM AI 2:31 PM SENIOR MICROSOFT NET DEVELOPER [facility] Comment: Equivocal, please recollect. Antibody index (AI) values reflect quali tative changes in antibody concentration that cannot be directly as sociated with clinical condition or disease state. Specimen Anatomical Collection Method Collection Time Receive d Time (Source) Location / / Volume Laterality 06/25/2019 12:21 06/25/2019 PM SENIOR MICROSOFT NET DEVELOPER 12:39 PM SENIOR MICROSOFT NET DEVELOPER Dariusz Bunch MD LAB - BLOOD ORDERABLES Performing Organization Address City/[facility]/ZIP Code Phon e Number [address] (ABNORMAL) EBV Capsid Antibody IgG (06/25/2019 12:21 PM SENIOR MICROSOFT NET DEVELOPER) Analysis Performed At Path logist Time Signature EBV Capsid >8.0 (H) 0.0 - 0.8 06/26/2019 [facility] Antibody IgG AI 2:31 PM SENIOR MICROSOFT NET DEVELOPER [facility] Comment: Positive, suggests recent or past exposu re Antibody index (AI) values reflect quali tative changes in antibody concentration that cannot be directly as sociated with clinical condition or disease state. Specimen Anatomical Collection Method Collection Time Receive d Time (Source) Location / / Volume Laterality 06/25/2019 12:21 06/25/2019 PM SENIOR MICROSOFT NET DEVELOPER 12:39 PM SENIOR MICROSOFT NET DEVELOPER Dariusz Bunch MD LAB - BLOOD ORDERABLES Performing Organization Address City/[facility] Code Phon e Number [address] EBV DNA PCR Quantitative Whole Blood (06/25/2019 12:21 PM SENIOR MICROSOFT NET DEVELOPER) [facility] gist Method Time Signature EBV DNA EBV DNA Not EBVNEG^EBV 06/29/2019 INFECTIOUS Copies/mL Detected DNA Not 3:03 PM SENIOR MICROSOFT NET DEVELOPER DISEASES Detected DIAGNOSTIC {Copies}/mL LABORATORY EBV DNA Log Not Calculated <2.7 06/29/2019 INFECTIOUS of Copies {Log_copies 3:03 PM SENIOR MICROSOFT NET DEVELOPER DISEASES }/mL DIAGNOSTIC LABORATORY Comment: The Real-Time quantitative EBV assay was developed and its performance characteristics determined by the Infect ious Diseases Diagnostic Laboratory at the [facility] in [place], [place]. ??The primers and probes are Analyte [...] / Volume Laterality 06/25/2019 12:21 06/25/2019 PM SENIOR MICROSOFT NET DEVELOPER 12:37 PM SENIOR MICROSOFT NET DEVELOPER Micky Aguilar MD LAB - BLOOD ORDERABLES Performing Organization Address City/[facility]/ZIP Code Phon e Number INFECTIOUS DISEASES [address] [place] [address] DIAGNOSTIC LABORATORY, [facility] INFECTIOUS DISEASES [address] [place] [address], A DIAGNOSTIC LABORATORY Troponin I (06/25/2019 12:21 PM SENIOR MICROSOFT NET DEVELOPER) P athologist Signature Troponin I ES <0.015 0.000 - 06/25/2019 [facility] 0.045 ug/L 1:35 PM SENIOR MICROSOFT NET DEVELOPER [facility] Comment: The 99th percentile for upper reference range is 0.045 ug/L. ??Troponin values in the range of 0.045 - 0.120 ug/L may b e associated with risks of adverse clinical events. Specimen Anatomical Collection Method Collection Time Receive d Time (Source) Location / / Volume Laterality 06/25/2019 12:21 06/25/2019 PM SENIOR MICROSOFT NET DEVELOPER 12:37 PM SENIOR MICROSOFT NET DEVELOPER Micky Aguilar MD LAB - BLOOD ORDERABLES Performing Organization Address City/State/ZIP Code Phon e Number [facility] [address] [place] [address] [facility] RSV rapid antigen (06/25/2019 12:21 PM SENIOR MICROSOFT NET DEVELOPER) Patholo gist Method Time Signature RSV Rapid Nasopharyngeal 06/25/2019 [facility] Antigen Spec 1:01 PM SENIOR MICROSOFT NET DEVELOPER [facility] RSV Rapid Negative NEG^Negat 06/25/2019 [facility]en 1:31 PM SENIOR MICROSOFT NET DEVELOPER [facility] Result [facility] Comment: Test results must be correlated with cli nical data. If necessary, results should be confirmed by a molecular assay or viral culture. Specimen (Source) Anatomical Collection Method Collection Time Re ceived Time Location / / Volume Laterality Specimen from 06/25/2019 12:21 06/25/2019 nasopharyngeal PM SENIOR MICROSOFT NET DEVELOPER 1:01 PM SENIOR MICROSOFT NET DEVELOPER structure (specimen) Micky Aguilar MD LAB - MICRO GENERAL ORDERABL ES Performing Organization Address City/State/ZIP Code Phon e Number [facility] [address] [place] [address] [facility] Blood culture (06/25/2019 12:21 PM SENIOR MICROSOFT NET DEVELOPER) [facility] gist Method Time Signature Specimen Blood Venous INFECTIOUS Description blood DISEASES DIAGNOSTIC LABORATORY Special Received in 06/25/2019 INFECTIOUS Requests aerobic 1:05 PM SENIOR MICROSOFT NET DEVELOPER DISEASES bottle only DIAGNOSTIC LABORATORY Culture Micro No growth 07/01/2019 INFECTIOUS 5:27 AM SENIOR MICROSOFT NET DEVELOPER DISEASES DIAGNOSTIC LABORATORY Specimen Anatomical Collection Method Collection Time Receive d Time (Source) Location / / Volume Laterality Blood specimen VENOUS BLOOD / 06/25/2019 12:21 020 (specimen) Unknown PM SENIOR MICROSOFT NET DEVELOPER 12:36 PM SENIOR MICROSOFT NET DEVELOPER Comment: Venous blood Micky Aguilar MD LAB - MICRO GENERAL ORDERABL ES Performing Organization Address City/State/ZIP Code Phon e Number INFECTIOUS DISEASES [address] [place] [address] DIAGNOSTIC LABORATORY, [facility] INFECTIOUS DISEASES [address] [place] [address], A DIAGNOSTIC LABORATORY BNP (06/25/2019 12:21 PM SENIOR MICROSOFT NET DEVELOPER) athologist Signature N-Terminal Pro 75 0 - 450 06/25/2019 [place] BNP Inpatient pg/mL 1:03 PM SENIOR MICROSOFT NET DEVELOPER [facility] Comment: Reference range shown and [...] Blood specimen 06/25/2019 12:21 0 (specimen) PM SENIOR MICROSOFT NET DEVELOPER 12:37 PM SENIOR MICROSOFT NET DEVELOPER Micky Aguilar MD LAB - BLOOD ORDERABLES Performing Organization Address City/State/ZIP Code Phon e Number M [facility] [address] [place] [address] [facility] [address] [place] [address], [place] [phone] (ABNORMAL) Comprehensive metabolic panel (06/25/2019 12:21 PM SENIOR MICROSOFT NET DEVELOPER) athologist Signature Sodium 140 133 - 144 06/25/2019 [facility] mmol/L 12:54 PM [facility] Potassium 3.5 3.4 - 5.3 06/25/2019 [facility] mmol/L 12:54 PM [facility] Chloride 106 98 - 110 06/25/2019 [facility] [facility] mmol/L 12:54 PM [facility] Carbon Dioxide 27 20 - 32 06/25/2019 [place] mmol/L 1:03 PM [facility] Anion Gap 7 3 - 14 06/25/2019 [place] mmol/L 1:03 PM [facility] Glucose 84 70 - 99 06/25/2019 [place] mg/dL 1:03 PM [facility] Urea Nitrogen 23 7 - 30 06/25/2019 [place] mg/dL 1:03 PM [facility] Creatinine 0.76 0.50 - 06/25/2019 [place] 1.00 mg/dL 1:03 PM [facility] GFR Estimate >90 >60 06/25/2019 [place] mL/min/{1. 1:03 PM [facility] 73_m2} [facility] Comment: Non GFR Calc Starting 06/03/2018, serum creatinine ba sed estimated GFR (eGFR) will be calculated using the Chronic Kidney Dise ase Epidemiology Collaboration (CKD-EPI) equation. GFR Estimate If >90 >60 mL/min/{1.73_m2} 06/25/2019 1: [address] [facility] Comment: GFR Calc Starting 06/03/2018, serum creatinine ba sed estimated GFR (eGFR) will be calculated using the Chronic Kidney Dise ase Epidemiology Collaboration (CKD-EPI) equation. Calcium 8.8 8.5 - 10.1 06/25/2019 1:03 PM [facility] mg/dL [facility] Bilirubin Total 1.5 (H) 0.2 - 1.3 mg/dL 06/25/2019 1:03 PM [facility] Albumin 4.1 3.4 - 5.0 g/dL 06/25/2019 1:03 PM [facility] Protein Total 7.7 6.8 - 8.8 g/dL 06/25/2019 1:03 PM [facility] Alkaline Phosphatase 66 65 - 260 U/L 06/25/2019 1:03 PM [facility] ALT 26 0 - 50 U/L 06/25/2019 1:03 PM [facility] AST 14 0 - 35 U/L 06/25/2019 1:03 PM [facility] Specimen Anatomical Collection Method Collection Time Receive d Time (Source) Location / / Volume Laterality Blood specimen 06/25/2019 12:21 0 (specimen) PM SENIOR MICROSOFT NET DEVELOPER 12:37 PM SENIOR MICROSOFT NET DEVELOPER Micky Aguilar MD LAB - BLOOD ORDERABLES Performing Organization Address City/State/ZIP Code Phon e Number M [facility] [address] [facility] [place] [id number] [place] [address] [address] [place] [address], U [phone] (ABNORMAL) CRP inflammation (06/25/2019 12:21 PM SENIOR MICROSOFT NET DEVELOPER) [facility] gist Method Time Signature CRP Inflammation 8.4 (H) 0.0 - 8.0 06/25/2019 [place] mg/L 1:03 PM SENIOR MICROSOFT NET DEVELOPER [facility] Specimen Anatomical Collection Method Collection Time Receive d Time (Source) Location / / Volume Laterality Blood specimen 06/25/2019 12:21 0 (specimen) PM SENIOR MICROSOFT NET DEVELOPER 12:37 PM SENIOR MICROSOFT NET DEVELOPER Micky Aguilar MD LAB - BLOOD ORDERABLES Performing Organization Address City/State/ZIP Code Phon e Number M [facility] [address] [place] [address] [phone] [facility] [address] [place] [address], [place] [phone] (ABNORMAL) CBC with platelets differential (06/25/2019 12:21 PM SENIOR MICROSOFT NET DEVELOPER) [facility] gist Method Time Signature WBC 11.4 (H) 4.0 - 06/25/2019 [facility] 11.0 12:45 PM [facility] 10e9/L [facility] RBC Count 5.65 4.4 - 5.9 06/25/2019 [facility] 10e12/L 12:45 PM [facility] Hemoglobin 16.9 13.3 - 06/25/2019 [facility] 17.7 g/dL 12:45 PM [facility] Hematocrit 50.1 40.0 - 06/25/2019 [facility] 53.0 % 12:45 PM [facility] MCV 89 78 - 100 06/25/2019 [facility] fl 12:45 PM [facility] MCH 29.9 26.5 - 06/25/2019 [facility] 33.0 pg 12:45 PM [facility] MCHC 33.7 31.5 - 06/25/2019 [facility] 36.5 g/dL 12:45 PM [facility] RDW 13.1 10.0 - 06/25/2019 [facility] 15.0 % 12:45 PM [facility] Platelet Count 197 150 - 450 06/25/2019 [facility] 10e9/L 12:45 PM [facility] Diff Method Automated 06/25/2019 [facility] Method 12:45 PM [facility] % Neutrophils 76.1 % 06/25/2019 [facility] 12:45 PM [facility] % Lymphocytes 10.2 % 06/25/2019 [facility] 12:45 PM [facility] % Monocytes 13.1 % 06/25/2019 [facility] 12:45 PM [facility] % Eosinophils 0.3 % 06/25/2019 [facility] 12:45 PM [facility] % Basophils 0.1 % 06/25/2019 [facility] 12:45 PM [facility] % Immature 0.2 % 06/25/2019 [facility] Granulocytes 12:45 PM [facility] Nucleated RBCs 0 0 /100 06/25/2019 [facility] 12:45 PM [facility] Absolute 8.7 (H) 1.6 - 8.3 06/25/2019 [facility] Neutrophil 10e9/L 12:45 PM [facility] Absolute 1.2 0.8 - 5.3 06/25/2019 [facility] Lymphocytes 10e9/L 12:45 PM [facility] Absolute 1.5 (H) 0.0 - 1.3 06/25/2019 [facility] Monocytes 10e9/L 12:45 PM [facility] Absolute 0.0 0.0 - 0.7 06/25/2019 [facility] Eosinophils 10e9/L 12:45 PM [facility] Absolute 0.0 0.0 - 0.2 06/25/2019 [facility] Basophils 10e9/L 12:45 PM [facility] Abs Immature 0.0 0 - 0.4 06/25/2019 [facility] Granulocytes 10e9/L 12:45 PM [facility] Absolute 0.0 06/25/2019 [facility] Nucleated RBC 12:45 PM [facility] Specimen Anatomical Collection Method Collection Time Receive d Time (Source) Location / / Volume Laterality Blood specimen 06/25/2019 12:21 0 (specimen) PM SENIOR MICROSOFT NET DEVELOPER 12:37 PM SENIOR MICROSOFT NET DEVELOPER Micky Aguilar MD LAB - BLOOD ORDERABLES Performing Organization Address City/State/ZIP Code Phon e Number [facility] [address] [place] [address] [facility] XR Chest 2 Views (06/25/2019 12:12 PM SENIOR MICROSOFT NET DEVELOPER) Anatomical Region Laterality Modality Chest Computed Radiography Specimen (Source) Anatomical Location Collection Method / Collectio n Time Received Time / Laterality Volume Impressions 06/25/2019 2:01 PM SENIOR MICROSOFT NET DEVELOPER IMPRESSION: No focal pneumonia. GENO CASTELLANOS MD Narrative 06/25/2019 2:01 PM SENIOR MICROSOFT NET DEVELOPER XR CHEST 2 VW ??06/25/2019 12:12 PM [...] vial to New Bag 06/25/2019 12:25 PM SENIOR MICROSOFT NET DEVELOPER 1 g attach to NS 100 mL [...] Recently Administered Medications Times are shown in SENIOR MICROSOFT NET DEVELOPER. Scheduled Medication Order 06/23/2019 06/24/2019 06/25/2019 [id number] [...] documented as of this encounter Care Teams Salesperson New Cars Relationship Specialty Start Date End Date [facility], [facility] PCP - General 06/25/19 02/22/20 [address] [place] [address] documented as of this encounter
--- OUTSIDE RECORDS SUMMARY | 2022-04-10 10:24 | XMS_ITS | Encounter Summary ---
:2000 Author Organization [place] Address [address] [place] [address] Care Team Providers Name Role Phone KomalStephen [...] DOPPLER ECHO PULSED, F/U OR LIMITED [address] [facility] [id number] HC DOPPLER ECHO [place] [address] [place] [address] Phone: Referral ID Status Reason Start Date Expiration Date Visits Requ ested Visits Authorized [id number] Closed 04/01/2019 03/31/2020 1 1 Reason for [...] DOPPLER ECHO PULSED, F/U OR LIMITED [id number] HC DOPPLER ECHO [place] [address] [place] [address] Phone: Referral ID Status Reason Start Date Expiration Date Visits Requ ested Visits Authorized [id number] Closed 04/01/2019 03/31/2020 1 1 Encounter Details Date Type Department Care Team Description 04/01/2019 Hospital Encounter [facility] Cordell Juarez , S/P [facility] procedure Heart Care [address] [facility] [address] [facility] [place] [address] [facility] [phone] Social History Tobacco Use Types Packs/Day Years [...] MCG TAKE ONE TABLET BY 30 tablet 12/18/2018 tabletIndications: SVT MOUTH ONE TIME (supraventricular [...] Ancillary Procedure Cardiology Cordell Juarez MD [address] [place] [address] (Wo rk) 07/27/2022 Office Visit Cardiology Cordell Juarez MD [address] [place], [place] [address] (Wo rk) documented as of this encounter [...] AM CDT Narrative 04/01/2019 11:02 AM CDT [id number]^JAVIER^CORDELL^RYAN ?Study ID: [id number] ?[facility] ?[facility] ?[address] ?[place] [address] ? Pediatric Echocardiogram __ Name: JUDE BILLS [...] Carroll 04/01/2019 11:02 AM Procedure Note Gayathri Aayla MD - 04/01/2019Forma tting of this note might be different from the original. [id number]^JAVIER^CORDELL^RYAN Study ID: [id number] [address] [place] [address] Pediatric Echocardiogram __ Name: JUDE BILLS Study [...] documented as of this encounter Care Teams Experimental Flight Test Mechanic Relationship Specialty Start Date End Date Stephen Sauceda PCP - General Pediatrics 03/06/17 06/24/[address] [address] documented as of this encounter
--- OUTSIDE RECORDS SUMMARY | 2022-04-10 10:24 | XMS_ITS | Encounter Summary ---
:2000 Author Organization [place] Address [facility] [place] [address] Care Team Providers Name Role Phone Stephen Sauceda Primary Care Provider Reason for Visit Reason Comments Medication Refill Encounter Details Date Type Department Care Team Description 01/29/2019 Refill [facility] Cordell Juarez MD Medication Refill Explorer Pediatric [facility] [address] [facility] [place], [place] [address] [place] [address] [place] [address] Social History Tobacco Use Types [...] Ancillary Procedure Cardiology Cordell Juarez MD [address] [facility] [place] [address] (Wo rk) 07/27/2022 Office Visit Cardiology Cordell Juarez MD [address] [place] [address] (Wo rk) documented as of this encounter Visit Diagnoses Diagnosis Tachycardia Tachycardia, unspecified documented in this encounter Care Teams Motor Tune Up Specialist Relationship Specialty Start Date End Date Stephen Sauceda PCP - General Pediatrics 03/06/17 06/24/19 [facility] [address] [place] [address] documented as of this encounter
--- OUTSIDE RECORDS SUMMARY | 2022-04-10 10:24 | XMS_ITS | Encounter Summary ---
:2000 Author Organization [place] Address [address] [facility] [place] [place] [address] Care Team Providers Name Role Phone Stephen Sauceda Primary Care Provider Reason for Visit Reason Comments Medication Refill Encounter Details Date Type Department Care Team Description 03/23/2019 Refill [facility] Cordell Juarez MD Medication Refill [facility] [address] [facility] [address] Specialty Clinic [place], [place] [address] [place] [address] [place] [address] Social History Tobacco Use Types [...] Ancillary Procedure Cardiology Cordell Juarez MD [address] [facility] [place] [address] (Wo rk) 07/27/2022 Office Visit Cardiology Cordell Juarez MD [address] [place] [address] (Wo rk) documented as of this encounter Visit Diagnoses Diagnosis Tachycardia Tachycardia, unspecified documented in this encounter Care Teams Campaign Worker Relationship Specialty Start Date End Date Stephen Sauceda PCP - General Pediatrics 03/06/17 06/24/19 [facility] [address] [place] [address] documented as of this encounter
--- OUTSIDE RECORDS SUMMARY | 2022-04-10 10:25 | XMS_ITS | Encounter Summary ---
:2000 Author Organization [place] Address [address] [place] [address] Care Team Providers Name Role Phone Stephen [...] Ancillary Procedure Cardiology Cordell Juarez MD [address] [place] [phone] (Wo rk) 07/27/2022 Office Visit Cardiology Cordell Juarez MD [address] [place] [address] [id number] (Wo rk) documented as of this encounter Visit Diagnoses Not on filedocumented in this encounter Care Teams Regional Sales Consultant Relationship Specialty Start Date End Date Komal, Stephen J PCP - General Pediatrics 03/06/17 06/24/19 [facility] [address] [place] [address] documented as of this encounter
--- OUTSIDE RECORDS SUMMARY | 2022-04-10 10:25 | XMS_ITS | Encounter Summary ---
:2000 Author Organization [place] Address [address] [place] [address] Care Team Providers Name Role Phone Stephen [...] Ancillary Procedure Cardiology Cordell Juarez MD [address] [place] [id number] (Wo rk) 07/27/2022 Office Visit Cardiology Cordell Juarez MD [address] [place] [address] [phone] (Wo rk) documented as of this encounter Visit Diagnoses Not on filedocumented in this encounter Care Teams First Helper Relationship Specialty Start Date End Date Komal, Stephen J PCP - General Pediatrics 03/06/17 06/24/19 [facility] [address] [place] [address] documented as of this encounter
--- OUTSIDE RECORDS SUMMARY | 2022-04-10 10:25 | XMS_ITS | Encounter Summary ---
:2000 Author Organization [place] Address [address] [place] [address]. [place] [address] Care Team Providers Name Role Phone Stephen [...] 48HR TO 21 DAY REVIEW AND INTERPRETATN [address] [place] [id number] 4 Referral ID Status Reason Start Date Expiration Date Visits Requ ested Visits Authorized [id number] Closed 10/10/2018 10/10/2019 1 1 Encounter Details Date Type Department Care Team Description 11/18/2018 Ancillary [facility] Cordell Juarez S/Kalia Fontan Procedure Explorer Pediatric MD procedure Specialty Clinic [address] [place] [address] [facility] [place], [place] 12th Floor [address] 2450 [facility] [phone] [place], [place] (Work) [address] [phone] Social History Tobacco Use Types Packs/Day Years [...] Ancillary Procedure Cardiology Cordell Juarez MD [address] [facility] [address] [place] [address] (Wo rk) 07/27/2022 Office Visit Cardiology Cordell Juarez MD [address] [facility] [address] [facility] [place] [address] (Wo rk) documented as of this encounter Procedures Procedure Name Priority Date/Time Associated Diagnosis Comme nts LEADLESS COSMETOLOGIST 3 TO 7 DAYS Routine 01/26/2019 S/P [...] status documented in this encounter Care Teams Painter Tumbling Barrel Relationship Specialty Start Date End Date Stephen Sauceda PCP - General Pediatrics 03/06/17 06/24/19 [facility] [address] [place] [address] documented as of this encounter
--- OUTSIDE RECORDS SUMMARY | 2022-04-10 10:25 | XMS_ITS | Encounter Summary ---
:2000 Author Organization [place] Address [facility] [address] Care Team Providers Name Role Phone KomalStephen mejia Rudy Primary Care Provider Reason for Visit Reason Comments Medication Refill Encounter Details Date Type Department Care Team Description 12/14/[address] [facility] Cordell Juarez MD Medication Refill [facility] [address] [place] [address] [address] Specialty Clinic [place], [place] [id number] [place] [address] Explorer Clinic [address] [place] [address] [place] [address] Social History Tobacco Use Types [...] Ancillary Procedure Cardiology Cordell Juarez MD [address] [address] (Wo rk) 07/27/2022 Office Visit Cardiology Cordell Juarez MD [address] [place] [address] [place], [place] [phone] (Wo rk) documented as of this encounter Visit Diagnoses Diagnosis Chest pain, unspecified type SVT (supraventricular tachycardia) (H) Other specified cardiac dysrhythmias documented in this encounter Care Teams Quiller Tender Relationship Specialty Start Date End Date Stephen Sauceda PCP - General Pediatrics 03/06/17 06/24/19 [facility] [address] [place] [address] documented as of this encounter
--- OUTSIDE RECORDS SUMMARY | 2022-04-10 10:25 | XMS_ITS | Encounter Summary ---
:2000 Author Organization [place] Address [facility] [facility] [place] [address] Care Team Providers Name Role Phone Stephen Sauceda Primary Care Provider Reason for Visit Reason Comments Medication Refill Encounter Details Date Type Department Care Team Description 12/29/2018 Refill [facility] [address] Juarez MD Medication Refill Center [address] [place] [address] [place] [address] [address] [place] [address] [phone] Social History Tobacco Use Types Packs/Day Years [...] Cardiology Cordell Juarez MD [address] [facility] [place] [address] (Wo rk) 07/27/2022 Office Visit Cardiology Cordell Juarez MD [address] [place] [address] [place] [address] (Wo rk) documented as of this encounter 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
--- OUTSIDE RECORDS SUMMARY | 2022-04-10 10:25 | XMS_ITS | Encounter Summary ---
:2000 Author Organization [facility] Address [address] [place] [address] Care Team Providers Name Role Phone Stephen Sauceda Primary Care Provider Reason for Referral (Routine) Specialty Diagnoses / Procedures Referred By Contact Refer red To Contact Elvis Leong MD [address] [facility] [address] [place], [place] [address] Referral ID Status Reason Start Date [...] suicidal ideation Depressed Ur [facility] Adult [facility] [address] [address] [place] [address] Phone: Referral ID Status Reason Start Date Expiration Date Visits Requ ested Visits Authorized [id number] 1 1 Encounter Details Date Type Department Care Team Description 09/30/2018 - Hospital Encounter [facility] Shaheed Meyer MD [address] [place] [address] [place] [id number] Severe episode of recurrent major depres sive disorder, without psychotic features (H) (Primary Dx); 10/03/2018 Clinic Young Adult Yo Sanchez MD [address] [place] [address] Depression with suicidal ideation Inpatient Mental Elvis Leong MD [id number] [place] [address] [facility] [address] [place] [address] Social History Tobacco Use Types [...] Elvis Leong MD Event Leading to Hospitalization: uJde Bills is an 18 year old male [...] and cloudy thoughts. He subsequently posted on [employer] ([employer]) that he messes up all the time, [...] is currently in High School, studying economics, Libyan, mathematics, aid, and physical education. He takes courses at [employer] in nursing. He has short and long-term plans forhis life, including taking numerical control machine tool operator courses and becoming a nurse. His COMBATANT DIVER OFFICER test is on 11/14/18, and he also has an upcoming citizenship test (patient was adopted from [place] at age 3). He expresses concern that [...] d-TGA # Pulmonary stenosis # LV Hypoplasia CALENDAR CONTROL CLERK BLOOD BANK managed on metoprolol XR 25 mg daily, [...] 06@11:00am Provider: ZACARIAS Winslow (Bridging Therapist) Address: [address] [address] ?? Date/Time: October 27@ 9:00am Provider: ZACARIAS Daigle Address: [address] [address] ?? Medication Management: Date/Time: October 06@09:15am Provider: Dr. Sauceda Address: [address] [address] ?? Day Treatment Referral: [facility] [address] [place] [phone] ? Attend all scheduled appointments with your [...] safety, call 911. ?? Resources: Crisis Intervention: 489.894.7994 or [phone] (TTY: 234.911.7544). Call anytime for help. National [place] on Mental Illness (www.[place].ruddy.org): 594.836.9687 or 356-237-8513. [place] Association for Children's Mental Health (www.macmh.org): 757.969.5760. Suicide Awareness Voices of Education (SAVE) (www.save.org): 491-484-WCFX (6132) National Suicide Prevention Line (www.mentalhealthmn.org): 108-710-WSNL (8478) [place] [address] for immediate support and crisis intervention Crisis text line: Text [place] to 773868. Free, confidential, 07/01. Crisis Intervention: 307.182.8037 or 192-355-6024. Call anytime for help. Mobile Crisis Response currently serves adults 07/01, . ? The treatment team has appreciated the opportunity to work with you. If you have any questions or concerns our unit number is [phone] You may be receiving a follow-up phone call within the next three days from a front desk representative from behavioral health. Attestation: The patient [...] Ideations. You were treated by Dr. Elvis Easely MD and discharged on 10/03/2018 from Station 4A to Home Principal Diagnosis: Depression with suicidal ideation Health Care Follow-up Appointments: Individual Therapy: Date/Time: October 06@11:00am Provider: ZACARIAS Winslow (Bridging Therapist) Address: [address] [address] Date/Time: October 27@ 9:00am Provider: ZACARIAS Daigle Address: [address] [address] Medication Management: Date/Time: October 06@09:15am Provider: Dr. Sauceda Address: [address] [address] Day Treatment Referral: [facility] Adult [facility] [address] [place] [address] Attend all scheduled appointments with your outpatient [...] there is a concern for safety, call [phone]. Resources: Crisis Intervention: 423.176.5410 or 359-920-5418 (TTY: 668.244.3293). Call anytime for help. National [place] on Mental Illness (www.[place].ruddy.org): 998.781.1004 or 027-887-2542. [place] Association for Children's Mental Health (www.mac.org): 294.812.8411. Suicide Awareness Voices of Education (SAVE) (www.save.org): 280-720-KXDB (5819) National Suicide Prevention Line (www.mentalhealthmn.org): 371-094-VWYL (9696) [place] 4 [place] [address] for immediate support and crisis intervention Crisis text line: Text [place] to 335867. Free, confidential, 07/01. Crisis Intervention: 262.425.9203 or 786-893-0538. Call anytime for help. Mobile Crisis Response currently serves adults 07/01, . The treatment team has appreciated the opportunity to work with you. If you have any questions or concerns our unit number is [phone] You may be receiving a follow-up phone call within the next three days from a front desk representative from behavioral health. documented in this encounter Medications at Time of Discharge Medication Sig Dispensed Refills Start Date End Date acetaminophen (TYLENOL) Take 500 mg by 0 02/17/2020 500 MG tablet mouth every 8 hours as needed for mild pain montelukast (SINGULAIR) Take 10 mg by mouth 0 02/17/2020 10 MG tablet At Bedtime digoxin (LANOXIN) 250 MCG Take 1 tablet [...] TIME tabletIndications: DAILY Tachycardia omeprazole (PRILOSEC) 20 TAKE 1 CAPSULE BY [...] 11:13 PM CDT Pt met with a volunteer recruiter this evening. Tree Topper called to inform RN that pt mentioned senior care through the visit that he has had 5 deaths in his life recently. Several have been relatives due to medical conditions and he also lost someone close to his age who also due to a medical condition. Tree Topper states that pt was somewhat shut down [...] 10/02/2018 5:36 PM CDT [facility] ([facility]) 4BW ON-CALL VISIT REFERRAL SOURCE: patient/family request at admission for entry level support Brief visit with pt Jude who [...] endorsed a good support network, including his social worker health services/clinical case manager ?? Danilo eventually mentioned that [...] the duration of hospitalization. Tammy Gillespie MDiv, [facility] Staff [employer] Pager [phone] Teena Estrada LMFT - 10/02/2018 2:47 PM [...] ED with depressed mood. Patient posted on [employer] that he was going to kill himself, [...] know his family. Pt grew up in [place] and then moved around.He has 2 sisters and 1 brother ages 22,18,13. Significant Life Events (Illness, Abuse, Trauma, ): Patient reports medical trauma's/ past surgeries. Living Situation: He currently resides in [place], [place]. He lives with her parents older sister (22) and brother (13). Educational Background: Pt is currently in High School. He attends [employer]. He is currently a senior and taking classes at the [employer] for Nursing/EMT. 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 Private insurance. Legal Issues: Patient denies Ethnic/Cultural Issues: Malagasy-Stateless Spiritual Orientation: None identified Service History: N/A Current Treatment Providers are: Stephen [email or web address] Manju-Occupational Therapist Social Service Assessment/Social Functioning/Plan: Patient [...] not sent to the safe or pharmacy. [facility] is not responsible for loss, theft or damage of any property in my possession. Signature: Date: Time: Staff Signature: Date: Time: 2nd Staff person, if patient is unable/unwilling to sign: Signature: Date: Time: Discharge: [facility] has returned all of my personal belongings: Signature: Date: Time: Staff Signature: Date: Time: documented in this encounter H&P Notes Elvis Leong MD - 10/02/2018 8:54 AM CDT [facility] History and Physical Admission date: 09/30/2018 [...] and cloudy thoughts. He subsequently posted on [employer] ([employer]) that he messes up all the time, [...] is currently in High School, studying economics, Libyan, mathematics, aid, and physical education. He takes courses at [employer] in nursing. He has short and long-term plans forhis life, including taking numerical control machine tool operator courses and becoming a nurse. His COMBATANT DIVER OFFICER test is on 11/14/18, and he also has an upcoming citizenship test (patient was adopted from [place] at age 3). He expresses concern that [...] ZACARIAS Winslow between 04/10/18 and 09/30/18 at [facility], where the diagnosis was Adjustment Disorder [...] ??? 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 Congenital anomalies of spleen Polysplenia ??? Esophageal reflux ??? 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 Unknown/Adopted Other child adopted from [place] at 10mo of age ??? Unknown/Adopted Other ??? Unknown/Adopted Other Social History: Please see the full psychosocial profile from the clinical scalp treatment specialist. SOCIAL HISTORY: Social History Tobacco Use ??? Smoking status: Never Smoker ??? Smokeless tobacco: Never Used ??? Tobacco comment: none at home Substance Use Topics ??? Alcohol use: No Physical ROS: The 10-point review of systems was negative except as noted in HPI. CALENDAR CONTROL CLERK BLOOD BANK Medications: Medications Prior to Admission Medication Sig [...] clear, coherent Language: fluent and intact in Libyan Psychomotor, Gait, Musculoskeletal: no evidence of tardive [...] current medication regimen is appropriate 3) Maintain CALENDAR CONTROL CLERK BLOOD BANK escitalopram 10 mg Qday 4) Schedule outpatient [...] were made. He is currently admitted to [facility] station 4A due to depression with [...] d-TGA # Pulmonary stenosis # LV Hypoplasia CALENDAR CONTROL CLERK BLOOD BANK managed on metoprolol XR 25 mg daily, [...] psychiatry. Radha Weber PA-C Hospitalist Service Pager [phone] documented in this encounter ED Notes Gerald [...] a 18 year old male who speaks Libyan and lives in a home with family [...] on phone: None Gets together: None Attends congregational service: None Active member of club or [...] DRUG ABUSE SCREEN 6 CHEM DEP URINE ([facility]) Imaging Studies: No results found for [...] needing to be completed:--- Latonia Hull, RN [phone] [facility] Marisabel Hills RN - 09/30/2018 10:30 PM [...] ED with depressed mood. Patient posted on [employer] that he was going to kill himself, [...] DRUG ABUSE SCREEN 6 CHEM DEP URINE ([facility]) Assessments & Plan (with Medical Decision Making) Patient presenting with depression and suicidal ideation. Vitals in the ED wnl. DEC assessment completed with labor operator recommending admission. Patient with suicidal ideation with [...] the patient. Current Discharge Medication List 09/30/2018 [facility], [place], EMERGENCY DEPARTMENT Jean Claude Meyer MD 10/01/18 [...] bright and mentioned wanting to work at [employer] in nursing or EMT. Pt was picked [...] participate in sports; [facility]. Vital signs reviewed related [...] monitor. Pharmacy-Admission Medication History - Petty Guzman [facility] - 10/01/2018 1:31 PM CDT Admission Medication History status for the 09/30/2018 admission is complete. See [facility] admission navigator for Prior to Admission medications. Medication history sources: Patient, Sure Scripts, Care Everywhere, Chart Review Medication history source reliability: Good Medication adherence: Good Changes made to CALENDAR CONTROL CLERK BLOOD BANK medication list (reason) Added: None Deleted: Bisacodyl [...] 07/27/2022 Ancillary Procedure Cardiology Cordell Juarez MD [address] [place], [place] [address] (Wo rk) 07/27/2022 Office Visit Cardiology Cordell Juarez MD [address] [place], [place] [phone] (Wo rk) Scheduled Referrals Name Type Priority [...] Re sults for this CHEM DEP URINE ([facility]) CDT proced ure are in the results section. documented in this encounter Results TSH with free T4 reflex and/or T3 as indicated (10/02/2018 7:41 AM CDT) P athologist Signature TSH 2.27 0.40 - 4.00 10/02/2018 [facility] mU/L 8:34 AM CDT [facility] Specimen Anatomical Collection Method Collection Time Receive d Time (Source) Location / / Volume Laterality Blood specimen 10/02/2018 7:41 AM 019 8:05 (specimen) CDT AM CDT Yo Sanchez MD LAB - BLOOD ORDERABLES Performing Organization Address City/[facility]/ZIP Code Phon e Number [address] [address] [facility] (ABNORMAL) Lipid panel (10/02/2018 7:41 AM CDT) P athologist Signature Cholesterol 116 <170 mg/dL 10/02/2018 [facility] 8:26 AM CDT [facility] Triglycerides 103 (H) <90 mg/dL 10/02/2018 [facility] 8:26 AM CDT [facility] Comment: Borderline high: ??90-129 mg/dl High: ?>129 mg/dl HDL Cholesterol 42 (L) >45 mg/dL 10/02/2018 8:26 AM C DT [facility] Comment: Low: ? <40 mg/dl Borderline low: ?? 40-45 mg/dl LDL Cholesterol 53 <110 mg/dL 10/02/2018 8:26 AM CDT [facility] Non HDL Cholesterol 74 <120 mg/dL 10/02/2018 8:26 AM CDT [facility] Specimen Anatomical Collection Method Collection Time Receive d Time (Source) Location / / Volume Laterality Blood specimen 10/02/2018 7:41 AM 019 8:05 (specimen) CDT AM CDT Yo Sanchez MD LAB - BLOOD ORDERABLES Performing Organization Address City/[facility]/ZIP Code Phon e Number [address] [address] [facility] (ABNORMAL) Comprehensive metabolic panel (10/02/2018 7:41 AM CDT) Analysis Performed At Patho logist Time Signature Sodium 139 133 - 144 10/02/2018 [facility] mmol/L 8:17 AM CDT [facility] Potassium 3.8 3.4 - 5.3 10/02/2018 [facility] mmol/L 8:17 AM CDT [facility] Chloride 105 98 - 110 10/02/2018 [facility] mmol/L 8:17 AM CDT [facility] Carbon Dioxide 28 20 - 32 10/02/2018 [facility] mmol/L 8:25 AM [facility] Anion Gap 6 3 - 14 10/02/2018 [facility] mmol/L 8:25 AM [facility] Glucose 105 (H) 70 - 99 10/02/2018 [facility] mg/dL 8:25 AM [facility] Urea Nitrogen 19 7 - 21 10/02/2018 [facility] mg/dL 8:25 AM [facility] Creatinine 0.88 0.50 - 10/02/2018 [facility] 1.00 mg/dL 8:25 AM [facility] GFR Estimate >90 >60 10/02/2018 [facility] mL/min/{1. 8:25 AM [facility] 73_m2} [facility] Comment: Non GFR Calc Starting 06/03/2018, serum creatinine ba sed estimated GFR (eGFR) will be calculated using the Chronic Kidney Dise [facility] Epidemiology Collaboration (CKD-EPI) equation. GFR Estimate If >90 >60 mL/min/{1.73_m2} 10/02/2018 8: 25 AM [facility] Comment: GFR Calc Starting 06/03/2018, serum creatinine ba sed estimated GFR (eGFR) will be calculated using the Chronic Kidney Dise [facility] Epidemiology Collaboration (CKD-EPI) equation. Calcium 9.1 9.1 - 10.3 mg/dL 10/02/2018 8:25 AM [facility] Bilirubin Total 1.3 0.2 - 1.3 mg/dL 10/02/2018 8:26 AM [facility] Albumin 4.5 3.4 - 5.0 g/dL 10/02/2018 8:26 AM [facility] Protein Total 7.9 6.8 - 8.8 g/dL 10/02/2018 8:26 AM [facility] Alkaline Phosphatase 87 65 - 260 U/L 10/02/2018 8:26 AM [facility] ALT 22 0 - 50 U/L 10/02/2018 8:26 AM [facility] AST 17 0 - 35 U/L 10/02/2018 8:26 AM [facility] Specimen Anatomical Collection Method Collection Time Receive d Time (Source) Location / / Volume Laterality Blood specimen 10/02/2018 7:41 AM 019 8:05 (specimen) CDT AM CDT Yo Crispin Sacnhez MD LAB - BLOOD ORDERABLES Performing Organization Address City/State/ZIP Code Phon e Number [facility] [address] [place] [address] [facility] CBC with platelets differential (10/02/2018 7:41 AM CDT) [facility] Method Time Signature WBC 5.2 4.0 - 10/02/2018 [facility] 11.0 8:15 AM CDT [facility] 10e9/L [facility] RBC Count 5.62 4.4 - 5.9 10/02/2018 [facility] 10e12/L 8:15 AM CDT [facility] Hemoglobin 16.4 13.3 - 10/02/2018 [facility] 17.7 g/dL 8:15 AM CDT [facility] Hematocrit 49.0 40.0 - 10/02/2018 [facility] 53.0 % 8:15 AM CDT [facility] MCV 87 78 - 100 10/02/2018 [facility] fl 8:15 AM CDT [facility] MCH 29.2 26.5 - 10/02/2018 [facility] 33.0 pg 8:15 AM CDT [facility] MCHC 33.5 31.5 - 10/02/2018 [facility] 36.5 g/dL 8:15 AM CDT [facility] RDW 13.0 10.0 - 10/02/2018 [facility] 15.0 % 8:15 AM CDT [facility] Platelet Count 174 150 - 450 10/02/2018 [facility] 10e9/L 8:15 AM CDT [facility] Diff Method Automated 10/02/2018 [facility] Method 8:15 AM CDT [facility] % Neutrophils 52.8 % 10/02/2018 [facility] 8:15 AM CDT [facility] % Lymphocytes 32.3 % 10/02/2018 [facility] 8:15 AM CDT [facility] % Monocytes 12.2 % 10/02/2018 [facility] 8:15 AM CDT [facility] % Eosinophils 1.9 % 10/02/2018 [facility] 8:15 AM CDT [facility] % Basophils 0.6 % 10/02/2018 [facility] 8:15 AM CDT [facility] % Immature 0.2 % 10/02/2018 [facility] Granulocytes 8:15 AM CDT [facility] Nucleated RBCs 0 0 /100 10/02/2018 [facility] 8:15 AM CDT [facility] Absolute 2.7 1.6 - 8.3 10/02/2018 [facility] Neutrophil 10e9/L 8:15 AM CDT [facility] Absolute 1.7 0.8 - 5.3 10/02/2018 [facility] Lymphocytes 10e9/L 8:15 AM CDT [facility] Absolute 0.6 0.0 - 1.3 10/02/2018 [facility] Monocytes 10e9/L 8:15 AM CDT [facility] Absolute 0.1 0.0 - 0.7 10/02/2018 [facility] Eosinophils 10e9/L 8:15 AM CDT [facility] Absolute 0.0 0.0 - 0.2 10/02/2018 [facility] Basophils 10e9/L 8:15 AM CDT [facility] Abs Immature 0.0 0 - 0.4 10/02/2018 [facility] Granulocytes 10e9/L 8:15 AM CDT [facility] Absolute 0.0 10/02/2018 [facility] Nucleated RBC 8:15 AM T [facility] Specimen Anatomical Collection Method Collection Time Receive d Time (Source) Location / / Volume Laterality Blood specimen 10/02/2018 7:41 AM 019 8:05 (specimen) CDT AM CDT Yo Crispin Sanchez MD LAB - BLOOD ORDERABLES Performing Organization Address City/State/ZIP Code Phon e Number [facility] [address] [place], [place] [phone] [place] [address] Drug abuse screen 6 urine (chem dep) (09/30/2018 8:53 PM CDT) [facility] Method Time Signature Amphetamine Qual Negative NEG^Negat 09/30/2018 [facility] F Urine colleen 9:39 PM CDT [facility] Comment: Cutoff for a negative amphetami ne is 500 ng/mL or less. Barbiturates Qual Negative NEG^Negative 09/30/2018 9:38 PM [facility] Urine [facility] Comment: Cutoff for a negative barbitura te is 200 ng/mL or less. Benzodiazepine Qual Negative NEG^Negative 09/30/2018 9:38 P M [facility] Urine [facility] Comment: Cutoff for a negative benzodiaz epine is 200 ng/mL or less. Cannabinoids Qual Negative NEG^Negative 09/30/2018 9:39 PM [facility] Urine [facility] Comment: Cutoff for a negative cannabino id is 50 ng/mL or less. Cocaine Qual Urine Negative NEG^Negative 09/30/2018 9:39 PM [facility] Comment: Cutoff for a negative cocaine i s 300 ng/mL or less. Ethanol Qual Urine Negative NEG^Negative 09/30/2018 9:38 PM [facility] Comment: Cutoff for a negative urine eth anol is 0.05 g/dL or less Opiates Qualitative Negative NEG^Negative 09/30/2018 9:39 P M [facility] Comment: Cutoff for a negative opiate is 300 ng/mL or less. Specimen Anatomical Collection Method Collection Time Receive d Time (Source) Location / / Volume Laterality Urine specimen URINE SPECIMEN / 09/30/2018 8:53 PM 9:20 (specimen) Unknown CDT PM CDT Jean Claude Meyer MD LAB - URINE ORDERABLES Performing Organization Address City/State/ZIP Code Phon e Number [facility] [address] [place] [address] [facility] documented in this encounter Visit Diagnoses Diagnosis [...] mg 2220 (Given - Provide r: Sherie Olmedo RN) 2046 (Given - Provider: Tamara Tyson [...] portion.
documented in this encounter Care Teams Roll Contour Grinder Relationship Specialty Start Date End Date Stephen Sauceda PCP - General Pediatrics 03/06/17 06/24/19 [facility] [address] [place] [address] documented as of this encounter
--- OUTSIDE RECORDS SUMMARY | 2022-04-10 10:25 | XMS_ITS | Encounter Summary ---
:2000 Author Organization [place] Address [facility] [place] [address] Care Team Providers Name Role Phone KomalStephen mejia Rudy Primary Care Provider Reason for Visit Reason Onset Date Comments MH/CD Inpatient 10/01/2018 Encounter Details Date Type Department Care Team Description 10/01/2018 Telephone [facility] Generic, Behavioral MH/ CD Inpatient Behavioral Health In chava Estrada MD [address] [place] [phone] Social History Tobacco Use Types Packs/Day Years [...] S: 18 y/o male presented to the [facility] ED with SI. Report by Shona (CHENG). B: Hx depression, ADHD, congenital anomalies of intestine and spleen, atrial tachycardia, hypoplastic left heart syndrome. Applied Statistician reported some cognitive issues but noted they are not significant. Ptreported being depressed for several years. Pt meets with a therapist but did not disclose his depression. Depression increased two weeks ago and was started on Lexapro at that time. Last night, pt posted suicidal messages on [employer] that were reported to his mother. Pt unable to contract for safety at home and said he has a plan of stabbing himself or poisoning by carbon monoxide. Denies aggression, HI, hallucinations, delusions or substance abuse. Stressors relating to his medical issues and not b eing able to participate in sports because of it. CHENG composing room machinist recommends admission to subacute. A: Voluntary Medically cleared. Pt is followed through [facility] for cardiac issues and is on a med regimen. R: Pt placed on waitlist. CHENG notified. documented in this encounter Plan of Treatment Upcoming Encounters Date Type Specialty Care Team Description 07/27/2022 Ancillary Procedure Cardiology Cordell Juarez MD [address] [place], [place] [address] [place] [address] (Arleen valdes) 07/27/2022 Office Visit Cardiology Cordell Juarez MD 2450 [facility] [address] [place] [address] (Arleen valdes) documented as of this encounter Visit Diagnoses Not on filedocumented in this encounter Care Teams Research Manager Relationship Specialty Start Date End Date Stephen Sauceda PCP - General Pediatrics 03/06/17 06/24/[address] [address] documented as of this encounter
--- OUTSIDE RECORDS SUMMARY | 2022-04-10 10:25 | XMS_ITS | Encounter Summary ---
:2000 Author Organization [place] Address 2450 [facility] [place] [address] Care Team Providers Name Role Phone KomalStephen Primary Care Provider Reason for Visit Reason Onset Date Comments Prior Auth - Medication 09/08/2018 Morphine sulfate er 15mg Encounter Details Date Type Department Care Team Description 09/08/2018 Telephone [facility] [place] Prior Auth - Medication [facility] ([place] [phone] 15mg) [phone] [place] [address] Social History Tobacco Use Types [...] Ancillary Procedure Cardiology Cordell Juarez MD [address] [place] [address] (Wo rk) 07/27/2022 Office Visit Cardiology Cordell Juarez MD [address] [facility] [place] [address] (Wo rk) documented as of this encounter Visit Diagnoses Not on filedocumented in this encounter Care Teams Bundle Person Relationship Specialty Start Date End Date Stephen Sauceda PCP - General Pediatrics 03/06/17 06/24/19 [facility] [address] [place] [address] documented as of this encounter
--- OUTSIDE RECORDS SUMMARY | 2022-04-10 10:25 | XMS_ITS | Encounter Summary ---
:2000 Author Organization [place] Address [facility] [place] [address] Care Team Providers Name Role Phone Stephen Sauceda Primary Care Provider Reason for Visit Reason Comments Consult blood in scrotum from hemato ma Encounter Details Date Type Department Care Team Description 09/10/2018 [facility] Pediatric Specialty MD (Primary Dx) Clinic [address] [facility] [address] [place] [address] [phone] Social History Tobacco Use Types Packs/Day Years [...] % 09/10/2018 11:59 AM CDT Growth Chart: [facility] (Boys, 2-20 Years) documented in this encounter Progress Notes Faby Bell MD - 09/10/2018 12:10 PM CDT Stephen Sauceda [facility] [address] [facility] [address] RE: Jude Bills : 2000 [place] Date of visit: September 10, [address] Sauceda: I had the pleasure of seeing your patient, Jude, today through the [facility] in urology consultation, requested by Dr. Cordell [...] ??? 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 Congenital anomalies of spleen Polysplenia ??? Esophageal reflux ??? 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 Sincerely, Faby Bell MD Pediatric Urology, [facility] Office phone documented in this encounter Nursing [...] Ancillary Procedure Cardiology Cordell Juarez MD [id number] [place] [address] (Wo rk) 07/27/2022 Office Visit Cardiology Cordell Juarez MD [address] [address] (Wo rk) documented as of this encounter Visit Diagnoses Diagnosis Bilateral groin pain - Primary Abdominal pain, unspecified site documented in this encounter Care Teams Cancer Program Consultant Relationship Specialty Start Date End Date Stephen Sauceda PCP - General Pediatrics 03/06/17 06/24/19 [facility] 1999 [place] [address] documented as of this encounter
--- OUTSIDE RECORDS SUMMARY | 2022-04-10 10:25 | XMS_ITS | Encounter Summary ---
:2000 Author Organization [place] Address [facility] [place] [address] Care Team Providers Name Role Phone Stephen [...] Ancillary Procedure Cardiology Cordell Juarez MD [address] [place] [address] (Wo rk) 07/27/2022 Office Visit Cardiology Cordell Juarez MD [address] [place] [phone] (Wo rk) documented as of this encounter Visit Diagnoses Not on filedocumented in this encounter Care Teams Desktop Publishing Associate Relationship Specialty Start Date End Date Stephen Sauceda PCP - General Pediatrics 03/06/17 06/24/19 [facility] [address] [place] [address] documented as of this encounter
--- OUTSIDE RECORDS SUMMARY | 2022-04-10 10:25 | XMS_ITS | Encounter Summary ---
:2000 Author Organization [place] Address [address]50 [place] [address] Care Team Providers Name Role Phone Stephen [...] 48HR TO 21 DAY REVIEW AND INTERPRETATN [facility]0 [facility] [place], [place] [address] Referral ID Status Reason Start Date Expiration Date Visits Requ ested Visits Authorized [id number] Closed 10/10/2018 10/10/2019 1 1 Consultation - Closed Specialty Diagnoses / Procedures Referred By Contact Refer red To Contact Diagnoses S/P Fontan procedure Cordell Juarez MD [address] [facility] [address] [place], [place] [address] Referral ID Status Reason Start Date Expiration Date Visits Requ ested Visits Authorized [id number] Closed 09/10/2018 09/10/2019 1 1 Reason for Visit Reason Comments RECHECK Atrial tachycardia Encounter Details Date Type Department Care Team Description 09/10/2018 Office Visit [facility] Cordell Juarez, S/P Fontan procedure Pediatric Specialty MD (Primary Dx) [address] [facility] [address] [place] [phone] Social History Tobacco Use Types Packs/Day Years [...] Holter when back to normal activities- call [facility] to send out when ready - [phone] Schedule hematology consult with Dr. Yoder for [...] have questions about today's visit, please call [facility] at [phone] or [facility] Nurse Line [phone] For after hours urgent needs call [phone] and ask to speak to the Pediatric Cardiology Physician information systems specialist. For emergencies call 161. documented in this encounter Progress Notes Cordell Juarez MD - 09/10/2018 12:30 PM CDT Pediatric Cardiology Visit Patient: Jude Bills Date of : 2000 Age: 16 years 7 months Date of Visit: Sep 10, 2018 PCP: Ana Li [place] Dear Dr. [place], I had the pleasure of seeing your patient, Jude Bills, in the Pediatric Cardiology Clinic at [facility] on Sep 10, 2018. 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 He underwent a central shunt, followed by a Fortino procedure and completion of a Fontan procedure at the [facility] in utilization supervisor. He had catheter closure of his Fontan fenestration at the [facility] in January 2007. Jude has had some [...] has an IEP. Planning on going to [employer] school after. Prescription Medications as of 09/11/2018 Rx Number Disp Refills Start End Last Dispensed Date Next Fill Date Owning Pharmacy acetaminophen (TYLENOL) 500 MG tablet 60 tablet 1 09/04/[address] [facility] [address] Sig: Take 1 tablet (500 mg) by mouth every 4 hours Class: E-Prescribe Route: Oral bisacodyl (DULCOLAX) 10 MG suppository 6 suppository 0 09/08/2018 [facility] [place] [address] 3 Sig: Place 1 suppository (10 mg) rectally daily as needed for constipation Class: E-Prescribe Route: Rectal diazepam (VALIUM) 1 MG/ML solution 14 mL 0 09/04/[address] [facility] [address] Sig: Take 0.5-1 mLs (0.5-1 mg) by mouth every 6 hours as needed for muscle spasms or pain Class: Local Print Route: Oral digoxin (LANOXIN) 250 MCG tablet 30 tablet 11 11/30/2017 [facility] [place] [address] 3 Sig: Take 1 tablet (250 mcg) by mouth daily Class: E-Prescribe Route: Oral furosemide (LASIX) 20 MG tablet 15 tablet 2 06/19/2018 [facility] [place] [address] 3 Sig: Take 0.5 tablets (10 mg) by mouth daily Class: E-Prescribe Route: Oral metoprolol succinate ER (TOPROL-XL) 25 MG 24 hr tablet 30 tablet 2 06/19/2018 [facility] [place] [address] 3 Sig: TAKE ONE TABLET BY MOUTH ONE TIME DAILY Class: E-Prescribe montelukast (SINGULAIR) 10 MG tablet 08/28/2018 Sig: Take 10 mg by mouth At Bedtime Class: Historical Route: Oral morphine (MS CONTIN) 15 MG CR tablet 28 tablet 0 09/11/2018 [facility] [place] [address] 3 Sig: Take 1 tablet (15 mg) by mouth every 12 hours As tolerated, decrease to15 mg at bedtime for atleast two days, then stop extended-release morphine, continuing as needed morphine only Class: Local Print Earliest Fill Date: 09/11/2018 Route: Oral morphine (MSIR) 15 MG IR tablet 15 tablet 0 09/04/2018 [facility] [address] Sig: Take 0.5 tablets (7.5 mg) by mouth every 4 hours as needed for moderate to severe pain or breakthrough pain Class: Local Print Earliest Fill Date: 09/04/2018 Route: Oral omeprazole (PRILOSEC) [address] capsule 30 capsule 2 09/09/2018 [facility] [address] [place] [address] 3 Sig: TAKE 1 CAPSULE BY MOUTH TWICE DAILY FOR ONE WEEK THEN ONCE DAILY Class: E-Prescribe polyethylene glycol (MIRALAX/GLYCOLAX) packet 1000 g 1 09/08/2018 [facility] [address] [place] [address] Sig: Take 17 g by mouth 2 times daily Hold morning dose if liquid bowel movements Class: E-Prescribe Route: Oral sennosides (SENOKOT) 8.6 MG tablet 30 tablet 0 09/04/2018 [facility] [address] Sig: Take 1 tablet by mouth 2 times daily Class: E-Prescribe Route: Oral sildenafil (REVATIO) 20 MG tablet 90 tablet 11 06/21/2017 [facility] 3 Sig: Take 1 tablet (20 mg) by mouth three times daily for pulmonary hypertension. Never use with nitroglycerin, terazosin or doxazosin. Class: E-Prescribe spironolactone (ALDACTONE) 25 MG tablet 30 tablet 11 09/25/2017 [facility] 3 Sig: Take 1 tablet (25 mg) by mouth daily Class: E-Prescribe Route: Oral Taking 20 mg lasix daily FH/SH: Jude and his family live in [place]. His mother is a nurse at [employer]. They are planning lots of travel [...] activity level. Sincerely, Sterling Rivers MD Pediatric Cable [facility] Jude has been on anticoagulation with warfarin [...] time of this visit. Cordell Juarez M.D. [facility] Pediatric[facility] Pediatric and Adult Congenital Cardiology [facility] Pediatric Cardiology Office [phone] Adult Congenital Cardiology Triage and Scheduling [phone] documented in this encounter Nursing Notes Kim [...] 07/27/2022 Ancillary Procedure Cardiology Cordell Juarez MD [address] [place] [address] (Wo rk) 07/27/2022 Office Visit Cardiology Cordell Juarez MD [address] [place] [address] (Wo rk) Scheduled Referrals Name Type Priority [...] status documented in this encounter Care Teams Resolution Analyst Relationship Specialty Start Date End Date Stephen Sauceda PCP - General Pediatrics 03/06/17 06/24/19 [facility] [address] [place] [address] documented as of this encounter
--- OUTSIDE RECORDS SUMMARY | 2022-04-10 10:25 | XMS_ITS | Encounter Summary ---
:2000 Author Organization [place] Address [address] [facility] [place] [address] Care Team Providers Name Role Phone KomalStephen Primary Care Provider Reason for Visit Reason Onset Date Comments Prior Auth - Medication 09/05/2018 [place] [facility] 15MG E R Encounter Details Date Type Department Care Team Description 09/05/2018 Telephone [facility] Abi Zaldivar Prior Auth - 245[address] YAMILE[address] Bush MD Medication ([place] [address] [address] 15MG ER) [phone] [place], [place] [address] (Wo rk) Social History Tobacco Use Types [...] Ancillary Procedure Cardiology Larry, Cordell Barajas MD [address] [place], [place] [id number] (Wo rk) 07/27/2022 Office Visit Cardiology Cordell Juarez MD [address] [place] [address] (Wo rk) documented as of this encounter Visit Diagnoses Not on filedocumented in this encounter Care Teams Stem Teacher Relationship Specialty Start Date End Date Stephen Sauceda PCP - General Pediatrics 03/06/17 06/24/19 [facility] [address] [place] [address] documented as of this encounter
--- OUTSIDE RECORDS SUMMARY | 2022-04-10 10:25 | XMS_ITS | Encounter Summary ---
:2000 Author Organization [place] Address [address] [place] [address]. [place] [address] Care Team Providers Name Role Phone Stephen Sauceda Primary Care Provider Reason for Visit Reason Comments Medication Refill Encounter Details Date Type Department Care Team Description 09/17/[address] [facility] Specialty [address] Juarez MD Medication Refill Center [address] [place] [address] [place] [address] [address] [place] [address] [phone] Social History Tobacco Use Types Packs/Day Years [...] 07/27/2022 Ancillary Procedure Cardiology Cordell Juarez MD [address] [place] [address] [place] [address] (Wo rk) 07/27/2022 Office Visit Cardiology Larry, Cordell skelton MD [address] [place] [address] (Wo rk) documented as of this encounter 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 Care Teams Airline Hostess Relationship Specialty Start Date End Date Stephen Sauceda PCP - General Pediatrics 03/06/17 06/24/19 [facility] [address] [place] [address] documented as of this encounter
--- OUTSIDE RECORDS SUMMARY | 2022-04-10 10:25 | XMS_ITS | Encounter Summary ---
:2000 Author Organization [place] Address [facility]0 [facility] [place] [address] Care Team Providers Name Role Phone Stephen Sauceda Primary Care Provider Reason for Visit Reason Comments Consult clotting abnormalities Encounter Details Date Type Department Care Team Description 12/17/2018 Office Visit [facility] Halina Yoder Nontraum atic psoas hematoma (Primary Dx); Cezar Pediatric MD Marisabel S/P Fontan procedure Specialty Clinic [address] [place] [address] [place] [address] Social History Tobacco Use Types [...] 12/17/2018 8:55 AM CD T Growth Chart: [facility] (Boys, 2-20 Years) documented in this encounter Patient Instructions Patient InstructionsHalina Yoder MD - 12/17/2018 9:00 AM CDT Follow up after lab testing in January following completion of antibiotics documented in this encounter Progress Notes Halina Yoder MD - 01/06/2019 10:12 AM CDT Service Date: 12/17/2018 December 17, 2018 [place] [address] RE: Jude Bills : [address] [...] grade. He is hoping to go to [employer] school. FAMILY HISTORY: Unknown as Jude is [...] MD MT: CARTER Name: JUDE BILLS Account: [id number] : 2000 Service Date: 12/17/2018 Document: [id number] documented in this encounter Nursing Notes Court [...] Cordell Juarez MD 2450 [facility] [address] [place] [address] (Wo rk) 07/27/2022 Office Visit Cardiology Cordell Juarez MD [address] [place] [address] (Wo rk) documented as of this encounter Visit Diagnoses Diagnosis Nontraumatic psoas hematoma - Primary Nontraumatic hematoma of soft tissue S/P Fontan procedure Other postprocedural status documented in this encounter Care Teams Parts Classifier Relationship Specialty Start Date End Date Stephen Sauceda PCP - General Pediatrics 03/06/17 06/24/19 [facility] [address] [place] [address] documented as of this encounter
--- OUTSIDE RECORDS SUMMARY | 2022-04-10 10:25 | XMS_ITS | Encounter Summary ---
:2000 Author Organization [place] Address [facility] [place] [address] Care Team Providers Name Role Phone KomalStephen Primary Care Provider [facility] Primary Care Provider [phone] Magnus Zayas DO Primary Care Provider [phone] Magnus Zayas DO Unavailable [phone] Celeste Scales MD Unavailable Magnus Zayas DO Unavailable [phone] Magda Winchester MD Primary Care Provider Reason for Visit Reason Onset Date Comments Outpatient 10/02/2018 4A to IOP CABRERA Encounter Details Date Type Department Care Team Description 10/02/2018 Telephone [facility] Fawn Meyer, Behavioral Outpatient (4A to Behavioral Health MD AUDIE Estrada) Intake [address] [place] [address] Social History Tobacco Use Types [...] is referred by Dr Leong from to [facility] B-Intake admit note: Hx depression, ADHD, congenital anomalies of intestine and spleen, atrial tachycardia, hypoplastic left heart syndrome. Senior Analyst reported some cognitive issues but noted they are not significant. Pt reported being depressed for several years. Pt meets with a therapist but did notdisclose his depression. Depression increased two weeks ago and was started on Lexapro at that time.Last night, pt posted suicidal messages on [employer] that were reported to his mother. Pt unable to contract for safety at home and said he has a plan of stabbing himself or poisoning by carbon monoxide. Denies aggression, HI, hallucinations, delusions or substance abuse. Stressors relating to his medical issues and not being able to participate in sports because of it. DEC airplane flight attendant supervisor recommends admission to subacute. They are full so pt went to [facility]. A-BX ins. R-Ref made to IOP documented in this encounter Plan of Treatment Upcoming Encounters Date Type Specialty Care Team Description 07/27/2022 Ancillary Procedure Cardiology Cordell Juarez MD [address] [place] [address] (Arleen valdes) 07/27/2022 Office Visit Cardiology Cordell Juarez MD [address] [place] [address] (Arleen valdes) documented as of this encounter Visit Diagnoses Not on filedocumented in this encounter Additional Health Concerns Infection Onset Date Last Indicated Resolved Time Rule Out COVID-19 12/18/2019 12/18/2019 12/19/2019 3:4 2 PM CDT Rule Out COVID-19 12/21/2019 12/21/2019 12/22/2019 2:3 2 AM CDT documented as of this encounter Care Teams Skylights Assembler Relationship Specialty Start Date End Date Stephen Sauceda PCP - General Pediatrics 03/06/17 06/24/[address] [address] Clinic, [facility] Er PCP - General 06/25/19 02/22/20 [address] [place] [address] Magnus Zayas, PCP - General Student in [facility] 02/23/20 09/17/[address] education/training program [address] [place] [id number] Magda Winchester PCP - General Family Medicine 09/18/21 MD [place] Magnus Zayas, Assigned PCP 02/28/2004/[address] 777065 Celeste Scales MD Assigned PCP 11/10/20 11/19/[address] [place] [id number] Magnus Zayas, Assigned PCP 11/20/[address] [address] documented as of this encounter
--- OUTSIDE RECORDS SUMMARY | 2022-04-10 10:25 | XMS_ITS | Encounter Summary ---
:2000 Author Organization [place] Address [address] [facility] [place] [address] Care Team Providers Name Role Phone Stephen Sauceda Primary Care Provider Reason for Referral Rehab Therapy Physical Therapy - Closed Specialty Diagnoses / Procedures Referred By Contact Refer red To Contact Diagnoses Hematoma of right psoas region to anticoagulant therapy, initial encounter Physical deconditioning Yasmin Garcia APRN CNP [address] [facility] [address] [place], [place] [address] Referral ID Status Reason Start Date Expiration Date Visits Requ ested Visits Authorized [id number] Closed 09/08/2018 09/08/2019 1 1 Reason for Visit Reason Comments Consult New PACCT patient Encounter Details Date Type Department Care Team Description 09/08/2018 Office Visit [facility] Yasmin Diallo Drug-induc ed constipation (Primary Dx); Pediatric JONATHAN Dias CNP Hematoma of right psoas region to antico agulant therapy, initial encounter; Specialty Clinic [address] [place] [address] Physical deconditioning; [address] Bilateral groin pain; Floor [place], [place] Hypoplastic [place] [address] [phone] Social History Tobacco Use Types Packs/Day Years [...] 09/08/2018 1:25 PM CD T Growth Chart: [facility] (Boys, 2-20 Years) documented in this encounter Progress Notes Yasmin Garcia APRN DOOR TECHNICIAN - 09/08/2018 1:30 PM CDT Images from [...] I spent a total of 75 minutes iodp-yz-ulmq with them during today???s office visit. 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 DEHYDRATION - Luke drank [...] I spent a total of 75 minutes erec-be-tode with Elizabethmarina Cho Negar during today???s office visit. Over 50% of this time was spent counseling the patient and/or coordinating care regarding pain management. Please see above note for further details. Thank you for allowing me to continue to participate in the care of this nice young man! Yasmin Garcia NP Pediatric Pain & Advanced/Complex Care Team (PACCT) [facility] Copy to patient: JOSEPH BILLS ROBERT [id number] COUNT INCLUDES THE [facility] [address] [facility] [phone] documented in this encounter Nursing Notes Patrizia Vásquez LPN - 09/08/2018 1:30 PM CDT [facility][id number] Chief Complaint Patient presents with ??? Consult [...] Ancillary Procedure Cardiology Cordell Juarez MD [address] [place] [address] (Wo rk) 07/27/2022 Office Visit Cardiology Cordell Juarez MD [address] [place] [address] (Wo rk) Scheduled Referrals Name Type Priority [...] syndrome documented in this encounter Care Teams Pigment Pumper Relationship Specialty Start Date End Date Stephen Sauceda PCP - General Pediatrics 03/06/17 06/24/19 [facility] [address] [place] [address] documented as of this encounter
--- OUTSIDE RECORDS SUMMARY | 2022-04-10 10:25 | XMS_ITS | Encounter Summary ---
:2000 Author Organization [place] Address [address] [place] [address] Care Team Providers Name Role Phone Stephen Sauceda Primary Care Provider [facility] [place] Primary Care Provider [phone] Magnus Zayas DO Primary Care Provider [phone] Magnus Zayas DO Unavailable [phone] Reason for Visit Reason Onset Date Comments attempt to schedule appointment 01/13/2019 Encounter Details Date Type Department Care Team Description 01/13/2019 Telephone [facility] Cordell Juarez atte mpt to schedule [facility] Pediatric MD appointment Specialty Clinic 24[address] [facility] 2450 [facility] [facility] [address] [place] [address] [place] [address] Social History Tobacco Use Types [...] Juarez MD [address] [place], [place] [address] (Wo rk) 07/27/2022 Office Visit Cardiology Cordell Juarez MD [address] [place], [place] [address] (Wo rk) documented as of this encounter Visit Diagnoses Not on filedocumented in this encounter Additional Health Concerns Infection Onset Date Last Indicated Resolved Time Rule Out COVID-19 12/18/2019 12/18/2019 12/19/2019 3:4 2 PM CDT Rule Out COVID-19 12/21/2019 12/21/2019 12/22/2019 2:3 2 AM CDT documented as of this encounter Care Teams Washroom Attendant Relationship Specialty Start Date End Date Stephen Sauceda PCP - General Pediatrics 03/06/17 06/24/19 [facility] 2000 [place] [address] [facility] PCP - General 06/25/19 02/22/[address] [place] [address] Magnus Zayas, PCP - General Student in organized 02/23/20 09/17/[address] education/training program [address] [place] [id number] Magnus Zayas, Assigned PCP 02/28/2004/[address] [place], [place] [address] documented as of this encounter
--- OUTSIDE RECORDS SUMMARY | 2022-04-10 10:25 | XMS_ITS | Encounter Summary ---
:2000 Author Organization [place] Address [facility] [place] [address] Care Team Providers Name Role Phone Stephen Sauceda Primary Care Provider Reason for Visit Reason Comments Medication Refill Encounter Details Date Type Department Care Team Description 09/09/2018 Refill [facility] Cordell Juarez MD Medication Refill [facility] [address] [place] [address] [place] [address] [place] [address] Social History Tobacco Use Types [...] Ancillary Procedure Cardiology Cordell Juarez MD 2450 [facility]556 [place] [address] (Wo rk) 07/27/2022 Office Visit Cardiology LarryCordell MD [address] [facility] [place] [address] (Wo rk) documented as of this encounter Visit Diagnoses Diagnosis Chest pain, unspecified type documented in this encounter Care Teams Potato Chip Packaging Machine Operator Relationship Specialty Start Date End Date Stephen Sauceda PCP - General Pediatrics 03/06/17 06/24/[address] [facility] [address] [place] [address] documented as of this encounter
--- OUTSIDE RECORDS SUMMARY | 2022-04-10 10:25 | XMS_ITS | Encounter Summary ---
:2000 Author Organization [place] Address 2450 [facility] [place] [address] Care Team Providers Name Role Phone Stephen Sauceda Primary Care Provider Reason for Visit Reason Comments Medication Refill Encounter Details Date Type Department Care Team Description 10/13/2018 Refill [facility] Cordell Juarez MD Medication Refill [facility] [address] [place], [place] [address] [address] Specialty Clinic [place], [place] [address] [place] [address] [facility] [address] [place] [address] [place] [address] Social History Tobacco Use Types [...] MD [address] [facility]556 [place] [address] (Wo rk) 07/27/2022 Office Visit Cardiology Cordell Juarez MD [address] [facility] [place] [address] (Wo rk) documented as of this encounter Visit Diagnoses Diagnosis Hypoplastic left heart syndrome Tachycardia Tachycardia, unspecified documented in this encounter Care Teams Dry Wall Nailer Relationship Specialty Start Date End Date Stephen Sauceda PCP - General Pediatrics 03/06/17 06/24/19 [facility] 1999 [place] [address] documented as of this encounter
--- OUTSIDE RECORDS SUMMARY | 2022-04-10 10:25 | XMS_ITS | Encounter Summary ---
:2000 Author Organization [place] Address [address] [place] [address] Care Team Providers Name Role Phone Stephen Sauceda Primary Care Provider Reason for Visit Reason Onset Date Comments reschedule appointment 11/17/2018 Encounter Details Date Type Department Care Team Description 11/17/2018 Telephone [facility] Cordell Juarez resc hedule appointment [facility] MD Specialty Clinic 2450 [facility] [address] [place] [address] [facility] [address] [place] [address] [place] [address] [place] [address] Social History Tobacco Use Types [...] Cardiology Cordell Juarez MD 2450 [facility]556 [place] [address] (Wo rk) 07/27/2022 Office Visit Cardiology Cordell Juarez MD [facility] [facility] [address] [place] [address] (Wo rk) documented as of this encounter Visit Diagnoses Not on filedocumented in this encounter Care Teams Pillowcase Maker Relationship Specialty Start Date End Date Stephen Sauceda PCP - General Pediatrics 03/06/17 06/24/19 [facility] 1999 [place] [address] documented as of this encounter
--- OUTSIDE RECORDS SUMMARY | 2022-04-10 10:25 | XMS_ITS | Encounter Summary ---
:2000 Author Organization [place] Address [address] [place] [address] Care Team Providers Name Role Phone Stephen [...] Ancillary Procedure Cardiology Cordell Juarez MD [address] [place] [address] (Wo rk) 07/27/2022 Office Visit Cardiology Cordell Juarez MD [address] [place] [address] (Wo rk) documented as of this encounter Visit Diagnoses Not on filedocumented in this encounter Care Teams Grid Inspector Relationship Specialty Start Date End Date Komal, Stephen J PCP - General Pediatrics 03/06/17 06/24/19 [facility] 1999 [place] [address] documented as of this encounter
--- OUTSIDE RECORDS SUMMARY | 2022-04-10 10:25 | XMS_ITS | Encounter Summary ---
:2000 Author Organization [place] Address [facility] [place] [address] Care Team Providers Name Role Phone Stephen Sauceda Primary Care Provider Reason for Visit Reason Onset Date Comments Call Back 10/01/2018 regarding pt update for inpatient Encounter Details Date Type Department Care Team Description 10/01/[address] [facility] Cordell Juarez, Call Back (regarding [facility] MD pt update for Specialty Clinic [address] [place] [address] inpatient ) [address] [place], [place] [id number] [facility] [address] [place] [address] [facility] [place] [address] Social History Tobacco Use Types [...] - 10/01/2018 9:52 AM CDT Callers Name: aJimie Dia Relationship to Patient: Mother Best time [...] Procedure Cardiology Cordell Juarez MD [address] [address] (Wo rk) 07/27/2022 Office Visit Cardiology Cordell Juraez MD [facility] [place] [address] [place] [address] (Wo rk) documented as of this encounter Visit Diagnoses Not on filedocumented in this encounter Care Teams Transfer And Pumphouse Operator Chief Relationship Specialty Start Date End Date Stephen Sauceda PCP - General Pediatrics 03/06/17 06/24/19 [facility] 1999 [place] [address] documented as of this encounter
--- OUTSIDE RECORDS SUMMARY | 2022-04-10 10:26 | XMS_ITS | Encounter Summary ---
:2000 Author Organization [place] Address [address] [place] [address]. [place] [address] Care Team Providers Name Role Phone Stephen Sauceda Primary Care Provider Reason for Visit Reason Comments Medication Refill Encounter Details Date Type Department Care Team Description 06/09/2018 Refill [facility] Specialty Care [address] Juarez MD Medication Refill Center [address] [place] [address] [place] [address] [address] [place] [address] [phone] Social History Tobacco Use Types Packs/Day Years [...] Ancillary Procedure Cardiology Cordell Juarez MD [address] [place], [place] [address] [place] [address] (Wo rk) 07/27/2022 Office Visit Cardiology Larry, Cordell skelton MD [address] [place] [address] (Wo rk) documented as of this encounter Visit Diagnoses Diagnosis Tachycardia Tachycardia, unspecified 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
--- OUTSIDE RECORDS SUMMARY | 2022-04-10 10:26 | XMS_ITS | Encounter Summary ---
:2000 Author Organization [place] Address [facility] [place] [address] Care Team Providers Name Role Phone Komal, Stephen Grant Primary Care Provider Reason for Visit Reason Comments RECHECK Hypoplastic left heart synd claritza Encounter Details Date Type Department Care Team Description 04/30/2018 Office Visit [facility] Cordell Juarez Atri al tachycardia Pediatric Specialty (H) (Primary Dx) Clinic [address] [place] [address] [phone] Social History Tobacco Use Types Packs/Day Years Used Date Smoking Tobacco: Never Comments: none at home Alcohol Use Standard Drinks/Week Comments No 0 (1 standard drink = 0.6 oz pure alcoho l) Sex Assigned at Date Recorded Male 03/09/2019 1:21 PM CDT documented as of this encounter Last Filed Vital Signs Vital Sign Reading Time Taken Comments Blood Pressure 110/66 04/30/2018 12:26 PM PHYSICAL THERAPY ASSISTANT INSTRUCTOR Pulse 72 04/30/2018 12:26 PM PHYSICAL THERAPY ASSISTANT INSTRUCTOR Temperature - - Respiratory Rate 20 04/30/2018 12:26 PM PHYSICAL THERAPY ASSISTANT INSTRUCTOR Oxygen Saturation 95% 04/30/2018 12:26 PM PHYSICAL THERAPY ASSISTANT INSTRUCTOR Inhaled Oxygen Concentration - - Weight 62.7 kg (138 lb 3.7 oz) 04/30/2018 12:26 PM PHYSICAL THERAPY ASSISTANT INSTRUCTOR Height 163 cm (5' 4.17) 04/30/2018 12:26 PM PHYSICAL THERAPY ASSISTANT INSTRUCTOR Body Mass Index 23.6 04/30/2018 12:26 PM PHYSICAL THERAPY ASSISTANT INSTRUCTOR Body Mass Index Percentile 68.81 % 04/30/2018 [...] in the Pediatric Cardiology Clinic at the [facility] on Apr 30, 2018. 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 He underwent a central shunt, followed by a Fortino procedure and completion of a Fontan procedure at the [facility] in early childhood educator aide. He had catheter closure of his Fontan fenestration at the [facility] in January 2007. Jude has had some episodes of atrial tachycardia that improvedon metoprolol. His recent chest pain, swelling, and exercise intolerance improved on lasix, sildenafil and omeprazole. Recently he has been bothered by ongoing episodes of chest pain and palpitations. He is here today with a one week history of Fatigue, headaches, poor appetite and intermittent abdominal pain. Seen in [facility] ER Saturday with acute chest pain and [...] supplies for administration. Please supply a small [employer] concentrator. Patient to receive 2L Oxygen PRN by nasal cannula for family trip to [place]. sildenafil (REVATIO) 20 MG tablet Take 1 [...] FH/SH: Jude and his family live in [place]. His mother is a nurse at [employer]. They are planning lots of travel this [...] non caffeinated fluids. Sincerely, Cordell Juarez M.D. Biomedical Specialist of Pediatrics Pediatric and Adult Congenital Cardiology [facility] Pediatric Cardiology Office [phone] Adult Congenital Cardiology Triage and Scheduling [phone] Addendum: zio patch Holter placed: Average HR 69 (41-144) rare ectopy, howevr 2 ventricular triplets. WOuld repeat in 4-6 months or if worsening symptoms. JLL ICAL THERAPY ASSISTANT INSTRUCTOR documented in this encounter Procedure Notes Cordell Juarez MD - 04/30/2018 12:30 PM CST Pediatric Cardiology Visit NOT yet UPDATED Patient: Jude Bills Date of : 2000 Age: 16 years 7 months Date of Visit: Apr 30, 2018 PCP: Ana Li [place] Dear Dr. Winchester, I had the pleasure of seeing your patient, Jude Bills, in the Pediatric Cardiology Clinic at the [facility] on Apr 30, 2018. Jude is a 18 year old young man who was born with double outlet right ventricle, left ventricular hypoplasia, d-transposition of the great vessels and pulmonary steno sis. He underwent a central shunt, followed by a Fortino procedure and completion of a Fontan procedure at the [facility] in early childhood educator aide. He had catheter closure of his Fontan fenestration at the [facility] in January 2007. Jude is here today [...] no longer playing basketball. 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 Prescription Medications as of 05/27/2018 Rx Number Disp Refills Start End Last Dispensed Date Next Fill Date Owning Pharmacy digoxin (LANOXIN) 250 MCG tablet 30 tablet 11 11/30/2017 [facility] [address] [place] [address] 3 Sig: Take 1 tablet (250 mcg) by mouth daily Class: E-Prescribe Route: Oral furosemide (LASIX) 20 MG tablet 45 tablet 3 05/29/2017 [facility] [address] [place] [address] 3 Sig: Take 0.5 tablets (10 mg) by mouth daily Class: E-Prescribe Route: Oral metoprolol (TOPROL-XL) 25 MG 24 hr tablet 90 tablet 3 05/29/2017 [facility] [address] [place] [address] 3 Sig: Take 1 tablet (25 mg) by mouth daily Class: E-Prescribe Route: Oral Montelukast Sodium (SINGULAIR PO) Class: Historical Route: Oral omeprazole (PRILOSEC) 20 MG CR capsule 90 capsule 3 08/14/2017 [facility] [address] [place] [address] 3 Sig: Take 1 capsule twice daily for one week then once daily Class: E-Prescribe order for DME 1 Device 0 01/15/2018 Sig: Equipment being ordered: Oxygen, cannula, and supplies for administration. Please supply a small [employer] portable tank concentrator. Patient to receive 2L Oxygen PRN by nasal cannula for family trip to [place]. Class: Local Print polyethylene glycol (MIRALAX/GLYCOLAX) packet 30 packet 3 05/14/2018 Sig: Take 17 g by mouth daily Goal is to achieve one soft bowel movement per day. Can increase or decrease dose as needed. Class: Local Print Route: Oral sildenafil (REVATIO) 20 MG tablet 90 tablet 11 06/21/2017 [facility] [address] [place] [address] 3 Sig: Take 1 tablet (20 mg) by mouth three times daily for pulmonary hypertension. Never use with nitroglycerin, terazosin or doxazosin. Class: E-Prescribe spironolactone (ALDACTONE) 25 MG tablet 30 tablet 11 09/25/2017 [facility] [address] [place] [address] 3 Sig: Take 1 tablet (25 mg) by mouth daily Class: E-Prescribe Route: Oral warfarin (COUMADIN) 5 MG tablet 90 tablet 3 08/14/2017 [facility] [address] [place] [address] 3 Sig: Take 5 mg daily M///sat/sun. 2.5 mg / Class: E-Prescribe warfarin (COUMADIN) 5 MG tablet 30 tablet 01/20/[address] [facility] [address] Sig: Take 1 tablet (5mg) every day except Saturday and Saturday. Take 1/2 tablet (2.5 mg) every Saturday and Saturday Class: Historical FH/SH: Luke and his family live in [place]. His mother is a nurse at [employer]. They are planning lots of travel this [...] non caffeinated fluids. Sincerely, Cordell Juarez M.D. Biomedical Specialist of Pediatrics Pediatric and Adult Congenital Cardiology [facility] Pediatric Cardiology Office [phone] Adult Congenital Cardiology Triage and Scheduling [phone] ICAL THERAPY ASSISTANT INSTRUCTOR documented in this encounter Nursing Notes Kim [...] Face time: 5 minutes Kim Summers MA ICAL THERAPY ASSISTANT INSTRUCTOR documented in this encounter Plan of Treatment Upcoming Encounters Date Type Specialty Care Team Description 07/27/2022 Ancillary Procedure Cardiology Cordell Juarez MD [address] [address] [place], [place] [address] (Wo rk) 07/27/2022 Office Visit Cardiology Cordell Juarez MD [address] [facility] [place], [place] [address] (Wo rk) documented as of this encounter Procedures Procedure Name Priority Date/Time Associated Diagnosis Comme nts [facility] Routine 04/30/2018 Atrial tachycardia Results for this REPORT, SUBSEQUENT - ED (H) proc edure are in ONLY the results section. documented in this encounter Results IgG (04/30/2018 2:23 PM PHYSICAL THERAPY ASSISTANT INSTRUCTOR) P athologist Signature IGG 1,631 305 - 1,620 05/01/2018 [facility] mg/dL 9:37 AM [facility] Specimen Anatomical Collection Method Collection Time Receive d Time (Source) Location / / Volume Laterality Blood specimen 04/30/2018 2:23 PM 018 2:24 (specimen) PHYSICAL THERAPY ASSISTANT INSTRUCTOR PM PHYSICAL THERAPY ASSISTANT INSTRUCTOR Cordell Juarez MD LAB - BLOOD ORDERABLES Performing Organization Address City/State/ZIP Code Phon e Number [facility] [address] [place] [address] [facility] ELECTROCARDIOGRAM REPORT (04/30/2018) Specimen (Source) Anatomical Location Collection Method / Collectio n Time Received Time / Laterality Volume 04/30/2018 Narrative This result has an attachment that is no t available. Cordell Juarez MD PROCEDURES documented in this encounter Visit Diagnoses Diagnosis Atrial tachycardia (H) - Primary Other specified cardiac dysrhythmias documented in this encounter Care Teams Chicken Catcher Relationship Specialty Start Date End Date Stephen Sauceda PCP - General Pediatrics 03/06/17 06/24/19 [facility] [address] [place] [address] documented as of this encounter
--- OUTSIDE RECORDS SUMMARY | 2022-04-10 10:26 | XMS_ITS | Encounter Summary ---
:2000 Author Organization [place] Address [address] [facility] [place] [address] Care Team Providers Name Role Phone Stephen Sauceda Primary Care Provider Reason for Visit Reason Comments Chest Pain Abdominal Pain Encounter Details Date Type Department Care Team Description 05/14/2018 Emergency [facility] Guille Cortes Abdomin al pain, generalized; [facility] Emergency MD Jaclyn Atypical chest pain; Department [address] [place] [address] Constipation, unspecified co nstipation type [address] [facility] [address] [place] [address] [place], [place] [phone] (Wo rk) Social History Tobacco Use Types [...] Comments Blood Pressure 110/67 05/14/2018 3:26 PM TILE LAYER SUPERVISOR Pulse 50 05/14/2018 3:26 PM TILE LAYER SUPERVISOR Temperature 36.5 ??C (97.7 ??F) 05/14/2018 3:26 PM TILE LAYER SUPERVISOR Respiratory Rate 18 05/14/2018 3:26 PM TILE LAYER SUPERVISOR Oxygen Saturation 97% 05/14/2018 3:26 PM TILE LAYER SUPERVISOR Inhaled Oxygen Concentration - - Weight 61.7 kg (136 lb 0.4 oz) 05/14/2018 12:31 PM TILE LAYER SUPERVISOR Height - - Body Mass Index 23.22 04/30/2018 12:26 PM TILE LAYER SUPERVISOR Body Mass Index Percentile 64.57 % 05/14/2018 12:[address] Growth Chart: [facility] (Boys, 2-20 Years) documented in this encounter Discharge Instructions Discharge InstructionsStephen Vargas MD - 05/14/2018 3:10 PM TILE LAYER SUPERVISOR Discharge Information: Emergency Department Jude saw Dr. [...] using Miralax if you have kidney disease LAYER SUPERVISOR documented in this encounter Medications at Time [...] Hypoplastic left heart Please supply a small [employer] e portable tank concentrator. syndrome Patient to receive 2L Oxygen PRN by nasal cannula for family trip to [place]. polyethylene glycol Take 17 g by mouth [...] 12:33 PM CST Pt was diagnosed with Ada 2 weeks ago. Since then pt has had chest and abdominal pain. Pt is followed by cardiology, and was referred to come to ED for further evaluation and treatment. LAYER SUPERVISOR Guille Cortes MD - 05/14/2018 12:24 PM [...] ??? 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 Congenital anomalies of spleen Polysplenia ??? Esophageal reflux ??? 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 [...] ALLERGIES: Motrin [ibuprofen] and Seasonal allergies IMMUNIZATIONS: MDD by report. SOCIAL HISTORY: Jude lives with his family in [place]. He is in 11th grade. I have [...] chest pain Constipation, unspecified constipation type 05/14/[address] [facility] EMERGENCY DEPARTMENT This data was collected with [...] Sophia Salgado Pablo Ureta, MD 05/15/18 1410 LAYER SUPERVISOR documented in this encounter Plan of Treatment Upcoming Encounters Date Type Specialty Care Team Description 07/27/2022 Ancillary Procedure Cardiology Cordell Juarez MD Critical access hospital0 [facility] [address] [place] [address] (Wo rk) 07/27/2022 Office Visit Cardiology Cordell Juarez MD Critical access hospital0 [facility] [address] [place] [address] (Wo rk) Pending Results Name Type Priority Associated Diagnoses Date/Ti me EKG 12 lead EKG STAT 05/14/2018 12:5 3 PM TILE LAYER SUPERVISOR documented as of this encounter Procedures Procedure Name Priority Date/Time Associated Comments Diagnosis CBC WITH PLATELETS & STAT 05/14/2018 1:58 PM R esults for this DIFFERENTIAL TILE LAYER SUPERVISOR procedure are i n the results section. TROPONIN I STAT 05/14/2018 1:58 PM Abdominal pain, Result s for this TILE LAYER SUPERVISOR generalized procedure are i n the results section. NT PROBNP INPATIENT STAT 05/14/2018 1:58 PM Abdominal pain, Results for this TILE LAYER SUPERVISOR generalized procedure are i n the results section. COMPREHENSIVE STAT 05/14/2018 1:58 PM Abdominal pain, Resul ts for this METABOLIC PANEL TILE LAYER SUPERVISOR generalized procedure ar e in the results section. XR ABDOMEN 1 VIEW STAT 05/14/2018 1:54 PM Resu lts for this TILE LAYER SUPERVISOR procedure are i n the results section. EKG 12-LEAD, TRACING STAT 05/14/2018 12:53 ONLY PM TILE LAYER SUPERVISOR documented in this encounter Results NT proBNP inpatient and ED (05/14/2018 1:58 PM TILE LAYER SUPERVISOR) athologist Signature N-Terminal Pro 39 0 - 450 05/14/2018 [facility] BNP Inpatient pg/mL 2:55 PM TILE LAYER SUPERVISOR [facility] Comment: Reference range shown and results [...] specimen 05/14/2018 1:58 PM 018 2:27 (specimen) TILE LAYER SUPERVISOR PM TILE LAYER SUPERVISOR Stephen Vargas MD LAB - BLOOD ORDERABLES Performing Organization Address City/State/ZIP Code Phon e Number [facility] [address] [place] [address] [facility] Troponin I (05/14/2018 1:58 PM TILE LAYER SUPERVISOR) athologist Signature Troponin I ES <0.015 0.000 - 05/14/2018 [facility] 0.045 ug/L 2:55 PM TILE LAYER SUPERVISOR [facility] Comment: The 99th percentile for upper reference range is 0.045 ug/L. ??Troponin values in the range of 0.045 - 0.120 ug/L may b e associated with risks of adverse clinical events. Specimen Anatomical Collection Method Collection Time Receive d Time (Source) Location / / Volume Laterality Blood specimen 05/14/2018 1:58 PM 018 2:27 (specimen) TILE LAYER SUPERVISOR PM TILE LAYER SUPERVISOR Stephen Vargas MD LAB - BLOOD ORDERABLES Performing Organization Address City/State/ZIP Code Phon e Number [facility] [address] [place] [address] [facility] [place]NORMAL[place] Comprehensive metabolic panel (05/14/2018 1:58 PM TILE LAYER SUPERVISOR) P athologist Signature Sodium 138 133 - 144 05/14/2018 [facility] mmol/L 2:52 PM [facility] Potassium 4.0 3.4 - 5.3 05/14/2018 [facility] mmol/L 2:52 PM [facility] Chloride 103 98 - 110 05/14/2018 [facility] mmol/L 2:52 PM [facility] Carbon Dioxide 29 20 - 32 05/14/2018 [facility] mmol/L 2:52 PM [facility] Anion Gap 6 3 - 14 05/14/2018 [facility] mmol/L 2:52 PM [facility] Glucose 82 70 - 99 05/14/2018 [facility] mg/dL 2:52 PM [facility] Urea Nitrogen 24 (H) 7 - 21 05/14/2018 [facility] mg/dL 2:52 PM [facility] Creatinine 0.91 0.50 - 05/14/2018 [facility] 1.00 mg/dL 2:52 PM [facility] GFR Estimate >90 >60 05/14/2018 [facility] mL/min/1.7 2:[address] Comment: Non GFR Calc GFR Estimate If >90 >60 mL/min/1.7m2 05/14/2018 2:52 P M [facility] Black [facility] Comment: GFR Calc Calcium 9.4 9.1 - 10.3 mg/dL 05/14/2018 2:52 PM [facility] Bilirubin Total 1.1 0.2 - 1.3 mg/dL 05/14/2018 2:52 PM [facility] Albumin 4.6 3.4 - 5.0 g/dL 05/14/2018 2:52 PM [facility] Protein Total 8.2 6.8 - 8.8 g/dL 05/14/2018 2:52 PM [facility] Alkaline Phosphatase 109 65 - 260 U/L 05/14/2018 2:55 PM [facility] ALT 36 0 - 50 U/L 05/14/2018 2:52 PM [facility] AST 27 0 - 35 U/L 05/14/2018 2:52 PM [facility] Specimen Anatomical Collection Method Collection Time Receive d Time (Source) Location / / Volume Laterality Blood specimen 05/14/2018 1:58 PM 018 2:27 (specimen) TILE LAYER SUPERVISOR PM TILE LAYER SUPERVISOR Stephen Vargas MD LAB - BLOOD ORDERABLES Performing Organization Address City/State/ZIP Code Phon e Number [facility] [address] [place] [address] [facility] CBC with platelets differential (05/14/2018 1:58 PM TILE LAYER SUPERVISOR) [facility] gist Method Time Signature WBC 5.3 4.0 - 05/14/2018 [facility] 11.0 2:36 PM [facility] 10e9/L [facility] RBC Count 5.85 4.4 - 5.9 05/14/2018 [facility] 10e12/L 2:36 PM [facility] Hemoglobin 17.2 13.3 - 05/14/2018 [facility] 17.7 g/dL 2:36 PM [facility] Hematocrit 50.4 40.0 - 05/14/2018 [facility] 53.0 % 2:36 PM [facility] MCV 86 78 - 100 05/14/2018 [facility] fl 2:36 PM [facility] MCH 29.4 26.5 - 05/14/2018 [facility] 33.0 pg 2:36 PM [facility] MCHC 34.1 31.5 - 05/14/2018 [facility] 36.5 g/dL 2:36 PM [facility] RDW 12.7 10.0 - 05/14/2018 [facility] 15.0 % 2:36 PM [facility] Platelet Count 170 150 - 450 05/14/2018 [facility] 10e9/L 2:36 PM [facility] Diff Method Automated 05/14/2018 [facility] Method 2:36 PM [facility] % Neutrophils 63.5 % 05/14/2018 [facility] 2:36 PM [facility] % Lymphocytes 25.2 % 05/14/2018 [facility] 2:36 PM [facility] % Monocytes 9.8 % 05/14/2018 [facility] 2:36 PM [facility] % Eosinophils 0.9 % 05/14/2018 [facility] 2:36 PM [facility] % Basophils 0.4 % 05/14/2018 [facility] 2:36 PM [facility] % Immature 0.2 % 05/14/2018 [facility] Granulocytes 2:36 PM [facility] Nucleated RBCs 0 0 /100 05/14/2018 [facility] 2:36 PM [facility] Absolute 3.4 1.6 - 8.3 05/14/2018 [facility] Neutrophil 10e9/L 2:36 PM [facility] Absolute 1.3 0.8 - 5.3 05/14/2018 [facility] Lymphocytes 10e9/L 2:36 PM [facility] Absolute 0.5 0.0 - 1.3 05/14/2018 [facility] Monocytes 10e9/L 2:36 PM [facility] Absolute 0.1 0.0 - 0.7 05/14/2018 [facility] Eosinophils 10e9/L 2:36 PM [facility] Absolute 0.0 0.0 - 0.2 05/14/2018 [facility] Basophils 10e9/L 2:36 PM [facility] Abs Immature 0.0 0 - 0.4 05/14/2018 [facility] Granulocytes 10e9/L 2:36 PM [facility] Absolute 0.0 05/14/2018 [facility] Nucleated RBC 2:36 PM [facility] Specimen Anatomical Collection Method Collection Time Receive d Time (Source) Location / / Volume Laterality Blood specimen 05/14/2018 1:58 PM 018 2:27 (specimen) TILE LAYER SUPERVISOR PM TILE LAYER SUPERVISOR Stephen Vargas MD LAB - BLOOD ORDERABLES Performing Organization Address City/State/ZIP Code Phon e Number [facility] [address] [place] [address] [facility] [place]R Abdomen 1 View (05/14/2018 1:54 PM TILE LAYER SUPERVISOR) Anatomical Region Laterality Modality Abdomen/Pelvis Computed Radiography Specimen (Source) Anatomical Location Collection Method / Collectio n Time Received Time / Laterality Volume Impressions 05/14/2018 2:01 PM TILE LAYER SUPERVISOR IMPRESSION: Moderate colonic stool. GENO CASTELLANOS MD Narrative 05/14/2018 2:01 PM TILE LAYER SUPERVISOR XR ABDOMEN 1 VW ??05/14/2018 1:54 PM [...] are normal. IMPRESSION: Moderate colonic stool. GENO CASTELALNOS MD Stephen Vargas MD IMG DIAGNOSTIC IMAGING [...] Recently Administered Medications Times are shown in TILE LAYER SUPERVISOR. Scheduled Medication Order 05/12/2018 05/13/2018 05/14/2018 sodium [...] size. documented in this encounter Care Teams Probation Agent Relationship Specialty Start Date End Date Stephen Sauceda PCP - General Pediatrics 03/06/17 06/24/19 [facility] [address] [place] [address] documented as of this encounter
--- OUTSIDE RECORDS SUMMARY | 2022-04-10 10:26 | XMS_ITS | Encounter Summary ---
:2000 Author Organization [address] [place] [address] Care Team Providers Name Role Phone Stephen Sauceda Primary Care Provider Reason for Visit Reason Onset Date Comments Results 05/19/2018 Encounter Details Date Type Department Care Team Description 05/19/2018 Telephone [facility] Pediatric Cordell Juarez MD Results Specialty Clinic [address] [address] [address] [facility] [place] [address] [facility] [place] [address] [phone] Social History Tobacco Use Types Packs/Day Years [...] with update on progress. Cordell Juarez M.D. Inspector Of Weights And Measures of Pediatrics Pediatric and Adult Congenital Cardiology [facility] Pediatric Cardiology Office [phone] Adult Congenital Cardiology Triage and Scheduling [phone] DCAST CHECKER documented in this encounter Plan of Treatment Upcoming Encounters Date Type Specialty Care Team Description 07/27/2022 Ancillary Procedure Cardiology Cordell Juarez MD [id number] [place], [place] [phone] (Wo rk) 07/27/2022 Office Visit Cardiology Cordell Juarez MD [address] [facility] [place], [place] [address] (Wo rk) documented as of this encounter Visit Diagnoses Not on filedocumented in this encounter Care Teams Cornice Upholsterer Relationship Specialty Start Date End Date Stephen Sauceda PCP - General Pediatrics 03/06/17 06/24/19 [facility] [address] [place] [address] documented as of this encounter
--- OUTSIDE RECORDS SUMMARY | 2022-04-10 10:26 | XMS_ITS | Encounter Summary ---
:2000 Author Organization [place] Address [address] [place] [address]. [place] [address] Care Team Providers Name Role Phone KomalStephen mejia Rudy Primary Care Provider Encounter Details Date Type Department Care Team Description 01/14/2018 [facility] Cordell Juarez MD Pediatric Specialty Clinic [address] [place] [address] [address] [facility] [address] [place] [address] Social History Tobacco Use [...] 07/27/2022 Ancillary Procedure Cardiology Cordell Juarez MD [address] [place] [id number] (Wo rk) 07/27/2022 Office Visit Cardiology Cordell Juarez MD [address] [facility] [address] [place] [address] (Wo rk) documented as of this encounter Visit Diagnoses Not on filedocumented in this encounter Care Teams Hazardous Waste Material Technician Relationship Specialty Start Date End Date Stephen Sauceda PCP - General Pediatrics 03/06/17 06/24/19 [facility] [address] [place] [address] documented as of this encounter
--- OUTSIDE RECORDS SUMMARY | 2022-04-10 10:26 | XMS_ITS | Encounter Summary ---
:2000 Author Organization [facility] Address [address] [place] [address] Care Team Providers Name Role Phone Stephen Sauceda Primary Care Provider Reason for Referral Rehab Therapy Physical Therapy - Closed Specialty Diagnoses / Procedures Referred By Contact Refer red To Contact Diagnoses Hematoma of right psoas region to anticoagulant therapy, initial encounter [facility] [address] [place], [place] [address] [address] Referral ID Status Reason Start Date Expiration Date Visits Requ ested Visits Authorized [id number] Closed 09/04/2018 09/04/2019 1 1 Reason for Visit Reason Comments Abdominal Pain Auth/Cert Specialty Diagnoses / Procedures Referred By Contact Refer red To Contact Pediatrics Diagnoses Psoas hematoma, left, secondary to anticoagulant therapy, subsequent encounter Psoas hematoma, right, secondary to anticoagulant therapy [facility] [address] [place], [place] [address] [address] Phone: Referral ID Status Reason Start Date Expiration Date Visits Requ ested Visits Authorized [id number] 1 1 Encounter Details Date Type Department Care Team Description 08/30/2018 - [facility] Guero Wynn MD [address] [facility] [address] [place] [address] Drug-induced constipation (Primary Dx); 09/05/2018 Encounter [facility] Pediatric Abi Zaldivar MD [address] [place] [address] Psoas hematoma, left, secondary to antic oagulant therapy, subsequent encounter; Medical Surgical Hematoma of right psoas region to anticoagulant therapy, initial encounter; Unit 6 penitentiary (current) use of a nticoagulants [address] [place] [address] Social History Tobacco Use Types [...] 09/05/2018 3:54 PM CDT [facility] Discharge Summary Pediatric Cardiology Date of Admission: [...] a Fontan procedure at the [facility] [place]. He had catheter closure of his Fontan fenestration at the [facility] in January 2007. 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 He presented on 08/30 with worsening abdominal pain. His pain first startedas side pain on 08/20. It was thought at that time to be musculoskeletal in nature. On 08/21 he was seen at [facility] for worsening pain at which point he [...] and recommendations outlined above. Roland Wells MD Food And Nutrition Supervisor of Pediatrics Pediatric Cardiology [facility] Date of Service (when I saw the patient): 09/05/18 documented in this encounter Medications at Time of Discharge Medication Sig Dispensed Refills Start Date End Date montelukast (SINGULAIR) Take 10 mg by mouth 0 02/17/2020 10 MG tablet At Bedtime acetaminophen (TYLENOL) Take 1 tablet (500 60 [...] hr MOUTH ONE TIME DAILY tabletIndications: Tachycardia morphine (MS CONTIN) 15 Take 2 tablets (30 mg) by [facility] every 12 hours Step 1: 15 mg [...] consult ANDREWS. Jennifer Gallo RD, LD Pager: [phone] Kevin Carrillo MD - 09/04/2018 2:08 PM CDT [facility] Pediatric Cardiology Progress Note Date of Service [...] physician, Dr. Priscilla Carrillo MD PGY-3 Pager: [phone] Interval History Pain improved yesterday after stooling. [...] and recommendations outlined above. Roland Wells MD Food And Nutrition Supervisor of Pediatrics Pediatric Cardiology [facility] Date of Service (when I saw the patient): 09/04/18 Yasmin Garcia, JONATHAN HEDGE FUND ACCOUNTANT - 09/04/2018 8:21 AM CDT Images from [...] to the individ ual child (available at: http://apps.who.int/iris/[email or web address]). Thank you for the opportunity to participate in the care of this patient and family. Please contact the Pain and Advanced/Complex Care Team (PACCT) with any emergent needs via text pageto the PACCT general pager ([phone], answered 8-4:30 Saturday to Saturday). After hours and on weekends/holidays, please refer to [facility] or [facility] on-call. The above assessment and plan was discussed with the care team. A total of 35 minutes were spent [id number] or in the coordination care of Jude Bills. Greater than 50% of my time on the unit was spent counseling the patient and/or coordinating care. Yasmin Garcia NP Pain and Advanced/Complex Care Team (PACCT) [facility] Pager: SUBJECTIVE: Interim History Improved pain with [...] to the individ ual child (available at: http://apps.who.int/iris/[email or web address]). Thank you for the opportunity to participate in the care of this patient and family. Please contact the Pain and Advanced/Complex Care Team (PACCT) with any emergent needs via text pageto the PACCT general pager ([phone], answered 8-4:30 Saturday to Saturday). After hours and on weekends/holidays, please refer to [facility] or [facility] on-call. The above assessment and plan was discussed with the care team. A total of 35 minutes were spent [id number] or in the coordination care of Jude Bills. Greater than 50% of my time on the unit was spent counseling the patient and/or coordinating care. Yasmin Garcia NP Pain and Advanced/Complex Care Team (PACCT) [facility] Pager: SUBJECTIVE: Interim History Pain improving overall, [...] AM CDT SPIRITUAL HEALTH SERVICES Progress Note [facility] ([facility]), [facility] 6th floor REFERRAL SOURCE: Follow-up visit based on previous stencil maker's surgical visit. On this visit, met with pt and his Mom, introduced myself as the unit stencil maker. Pt and Mom were bothpleasant, shared that their mechanical expert had been up to see them and that they had no currents need of spiritual health. Advised family how to request a SH visit if needs change. PLAN: Research Program Manager remains available per pt/family/staff request. Rev. Celeste Alex MDiv. [facility] Staff Research Program Manager Pager [phone] ANAT Kevin Carrillo MD - 09/03/2018 7:24 AM CDT [facility] Pediatric Cardiology Progress Note Date of Service [...] physician, Dr. Priscilla Carrillo MD PGY-3 Pager: [phone] Interval History Pain stable overnight with available [...] and recommendations outlined above. Roland Wells MD Food And Nutrition Supervisor of Pediatrics Pediatric Cardiology [facility] Date of Service (when I saw the patient): 09/03/18 Yasmin Garcia APRN [facility] - 09/02/2018 4:06 PM CDT Images from [...] to the individ ual child (available at: http://apps.who.int/iris/[email or web address]). Thank you for the opportunity to participate in the care of this patient and family. Please contact the Pain and Advanced/Complex Care Team (PACCT) with any emergent needs via text pageto the PACCT general pager ([phone], answered 8-4:30 Saturday to Saturday). After hours and on weekends/holidays, please refer to [facility] or [facility] on-call. The above assessment and plan was discussed with the care team. A total of 35 minutes were spent [id number] or in the coordination care of Jude Bills. Greater than 50% of my time on the unit was spent counseling the patient and/or coordinating care. Yasmin Garcia NP Pain and Advanced/Complex Care Team (PACCT) [facility] Pager: SUBJECTIVE: Interim History Mental status much [...] 09/02/2018 7:29 AM CDT [facility] Pediatric Cardiology Progress Note Date of Service [...] physician, Dr. Priscilla Carrillo MD PGY-3 Pager: [phone] Interval History Pain stable overnight. Able to [...] NEG^Negative Ketones Urine Negative NEG^Negative mg/dL Specific [place] Urine 1.016 1.003 - 1.035 Blood Urine [...] and recommendations outlined above. Roland Wells MD Food And Nutrition Supervisor of Pediatrics Pediatric Cardiology [facility] Date of Service (when I saw the [...] Carreno MD, PhD Division of Pediatric Surgery, [facility] pgr [phone] Kevin Carrillo MD - 09/01/2018 7:56 AM CDT [facility] Pediatric Cardiology Progress Note Date of Service [...] physician, Dr. Priscilla Carrillo MD PGY-3 Pager: [phone] Interval History Increased pain throughout the day [...] NEG^Negative Ketones Urine Negative NEG^Negative mg/dL Specific [place] Urine 1.029 1.003 - 1.035 Blood Urine [...] Antibody Screen Neg Test Valid Only At [facility] Specimen Expires 09/02/2018 Associated attestation [...] and recommendations outlined above. Roland Wells MD Food And Nutrition Supervisor of Pediatrics Pediatric Cardiology [facility] Date of Service (when I saw the patient): 09/01/18 Patricia Kruse - 08/31/2018 1:41 PM CDT 08/31/18 1341 Values Beliefs and Spiritual Care C: Community: In support of your spiritual health, is there someone we may contact for you? (identify all that apply) ([facility] 08/31) Visit Information Visit Made By Staff Research Program Manager Type of Visit On-call Visited Patient;Family Interventions Basic Spiritual Interventions Research Program Manager introduction/orientation to Spiritual Health Services;Reflective conversation;Prayer Advanced Assessments/Interventions Presenting Concerns/Issues Spiritual/sikh/emotional support SPIRITUAL HEALTH SERVICES SPIRITUAL ASSESSMENT Progress Note [facility] ([facility]) Peds6 ON-CALL VISIT PRIMARY FOCUS: ??? Support for coping ILLNESS CIRCUMSTANCES: Reviewed documentation. Visit due to pt request for stencil maker support on admission. Reflective conversation shared with [...] with him today. Jude also mentioned his tenriism mechanical expert that has visited, offered one-to-one support for him and also for the family. DISTRESS: ??? Emotional/Spiritual/Existential Distress - I am looking forward to graduating and getting busy with life Jude stated, noting that it is hard to be here instead. He also asked for prayers for Elina, a friend with some similar health challenges who 3 weeks ago. ??? Jainism Distress - ??? Social/Cultural/Economic Distress - being away from school so close to high school graduation SPIRITUAL/TAOIST COPING: ??? Latter Day/Amelie - Religious ??? Spiritual Practice(s) - Jude welcomed prayers and noted his appreciation of his mechanical expert's support ??? Emotional/Relational/Existential Connections - Not Discussed [...] event. PLAN: I have informed the unit stencil maker of care provided. The family is aware of how to reach [facility]S through their nurse, and may be open to further support. 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 Jennifer Saba MD Pediatrics, PGY-1 Pager: [phone] Physician Attestation I, Abi Zaldivar, saw this [...] Carreno MD, PhD Division of Pediatric Surgery, [facility] [phone] documented in this encounter H&P Notes Abi Zaldivar MD - 08/30/2018 4:55 PM CDT [facility] History and Physical Pediatric Cardiology Date of Admission: 08/30/2018 Assessment & Plan Jude Bills is a 18 year old male with a history of DORV, left ventricular hypoplasia, d-transposition and pulmonary stenosis s/p Fortino, Fontan and most recently closure of his Fontan fenestration [id number] as well as heterotaxy syndrome, malrotation s/p [...] 1-3 days Kevin Carrillo MD PGY-3 Pager: [phone] Physician Attestation I, Abi Zaldivar, saw this [...] a Fontan procedure at the [facility] [place]. He had catheter closure of his Fontan fenestration at the [facility] in January 2007. 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 He presents today with worsening abdominal pain. His pain first started asside pain on 08/20. It was thought at that time to be musculoskeletal in nature. [facility] which [facility] he [...] older sibling. 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 Family History Family history reviewed with patient [...] Antibody Screen Neg Test Valid Only At [facility] Specimen Expires 09/02/2018 Partial thromboplastin time Result [...] NEG^Negative Ketones Urine Negative NEG^Negative mg/dL Specific [place] Urine 1.029 1.003 - 1.035 Blood Urine [...] this encounter Consult Notes Yasmin Garcia APRN HEDGE FUND ACCOUNTANT - 09/01/2018 10:58 AM CDTAssociated Order(s): PEDS [...] to the individ ual child (available at: [email or web address].who.int/iris/[email or web address]). Thank you for the opportunity to participate in the care of this patient and family. Please contact the Pain and Advanced/Complex Care Team (PACCT) with any emergent needs via text page to the PACCT general pager ([phone], answered 8-4:30 Saturday to Saturday). After hours and on weekends/holidays, please refer to the [facility] or [facility] on-call schedule. The above assessment and plan was discussed with the care team. A total of 90 minutes were spent [id number] or in the coordination care of Jude Bills. Greater than 50% of my time on the unit was spent counseling the patient and/or coordinating care. Yasmin Garcia NP Pain and Advanced/Complex Care Team (PACCT) [facility] Pager: SUBJECTIVE: History of the Present Illness Jude Bills is a 18 year old male with a history of complex congenital heart disease (DORV, left ventricular hypoplasia, D-TGA, pulmonary stenosis; s/p serial corrective surgeries in [place],most recently post Fontan closure 01/2007), heterotaxy, intestinal [...] Fortino now with Fenestrated Fontan Done at [place] Past Surgical History Past Surgical History: Procedure [...] Onset ??? Unknown/Adopted Other child adopted from [place] at 10mo of age ??? Unknown/Adopted Other ??? Unknown/Adopted Other Social History Adopted from [place] as an . Lives with parents and [...] Carreno MD - 08/30/2018 5:22 PM CDT [facility] Surgery Consultation Jude Bills Age: [age] year [...] spontaneous soft tissue hematomas, who presents to [facility] with complaint of psoas hematoma. [...] to hold his warfarin. He returned to [facility] on Saturday for a follow-up CT scan [...] appearance without blood or melena. Evaluation at [facility] showed some increase in size of right [...] Fortino now with Fenestrated Fontan Done at [facility] Past Surgical History: Past Surgical History: Procedure [...] Onset ??? Unknown/Adopted Other child adopted from [place] at 10mo of age ??? Unknown/Adopted Other [...] Antibody Screen Neg Test Valid Only At [facility] Specimen Expires 09/02/2018 Partial thromboplastin time Result [...] NEG^Negative Ketones Urine Negative NEG^Negative mg/dL Specific [place] Urine 1.029 1.003 - 1.035 Blood Urine [...] Carreno MD, PhD Division of Pediatric Surgery, [facility] [phone] documented in this encounter ED Notes Kirsten Patel RN - 08/30/2018 3:59 PM CDT During the administration of the ordered medication, morphine the potential side effects were discussed with the patient/guardian. Kirsten Patel RN - 08/30/2018 12:47 PM CDT Patient followed by cristi, diagnosed with R hip flexor/abdomen hematoma in [place] ER one week ago. Pain is worse [...] to worsen, so they brought him to [facility] on 08/21 CT scan at that time [...] He is followed by Dr. Ju[facility]. He is in the process of transitioning to adult pediatric care. No recent travel, immunizations are UTD. PMHx: Past Medical History: Diagnosis Date ??? 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 Congenital anomalies of spleen Polysplenia ??? Esophageal reflux ??? 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 [...] be useful. 4. Polysplenia. Old chart from [facility], Care Everywhere, and Patient's copy of [...] secondary to anticoagulant therapy, subsequent encounter 08/30/2018 [facility] Armida Lancaster MD [facility] Pediatrics PL-2 p: [phone] This data was collected by the resident [...] encounter Miscellaneous Notes Plan of Care - aRchelle Franco, PT - 09/05/2018 4:52 PM CDT Physical Therapy Discharge Summary Reason for therapy discharge: Discharged to home with outpatient therapy. Progress towards therapy goal(s). See goals on Care Plan in [facility] electronic health record for goal details. [...] of care. Continue to monitor and contact [facility] Team with changes or concerns. Pharmacy - [...] teaching. Henry Singh, PharmD Pediatric Discharge Pharmacist [phone] Plan of Care - Tylor Stern RN [...] Franco, PT - 09/04/2018 11:44 AM CDT Salon Manager PT Patient plan for discharge: Home with [...] Gutierres RN - 09/02/2018 11:30 PM CDT [id number] Pt's VSS. Pt having complaints of pain, [...] follow 3x/week to improve mobility as necessary. Salon Manager PT Patient plan for discharge: TBD Current status: Safe and Independent with mobility, 2WW with ambulation for comfort Barriers to return to prior living situation: Medical POC Recommendations for discharge: Home with assist Rationale for recommendations: Independent with mobility Entered by: Tamara Cohen 09/02/2018 2:16 PM Tamara Cohen, PT, DPT [phone] Plan of Care - Maddie Eugene RN [...] for the 08/30/2018 admission is complete. See [facility] admission navigator for allergy information, pharmacy, prior to admission medications and immunization status. Medication history interview sources: Patient, Mother, Care Everywhere ([facility]), Office Visit Note 07/21/18 Changes made to [employer] medication list (reason) Added: [place], Tylenol Deleted: Miralax powder: take 17 g [...] held since last Saturday08/24/18. -INR monitored by [facility]. Has been stable on this dose. -Was prescribed [place] last Saturday (08/23/18) and has been taking approx. 1 tablet per day for pain. -Taking Tylenol Extra Strength around 3 times daily for pain control as well (not exceeding 4 g per day with [place] tablets) Prior to Admission medications Medication Sig [...] Ancillary Procedure Cardiology Cordell Juarez MD [address] [facility] [address] [place], [place] [address] (Wo rk) 07/27/2022 Office Visit Cardiology Cordell Juarez MD [address] [facility] [address] [place], [place] [address] (Wo rk) Scheduled Referrals Name Type Priority [...] 09/05/2018 [facility] mg/dL 1:58 PM CDT [facility] GFR Estimate >90 >60 09/05/2018 [facility] mL/min/{1.7 1:58 PM CDT [facility] 3_m2} [facility] Comment: Non GFR Calc Starting 06/03/2018, serum creatinine ba sed estimated GFR (eGFR) will be calculated using the Chronic Kidney Dise [facility] Epidemiology Collaboration (CKD-EPI) equation. GFR Estimate If >90 >60 mL/min/{1.73_m2} 09/05/2018 1: 58 PM [facility] Black [facility] Comment: GFR Calc Starting 06/03/2018, serum creatinine ba sed estimated GFR (eGFR) will be calculated using the Chronic Kidney Dise [facility] Epidemiology Collaboration (CKD-EPI) equation. Specimen Anatomical Collection Method Collection Time Receive d Time (Source) Location / / Volume Laterality Blood specimen 09/05/2018 1:30 PM 019 1:37 (specimen) CDT PM CDT Chuyita Crabtree Manish Slater APRN, CNP LAB - BLOOD ORDERAB LES Performing Organization Address City/State/ZIP Code Phon e Number [facility] [address] [place] [address] [facility] Hemoglobin (09/05/2018 1:30 PM CDT) athologist Signature Hemoglobin 14.6 13.3 - 17.7 09/05/2018 [facility] g/dL 1:43 PM CDT [facility] Specimen Anatomical Collection Method Collection Time Receive d Time (Source) Location / / Volume Laterality Blood specimen 09/05/2018 1:30 PM 019 1:37 (specimen) CDT PM CDT Chuyita Hammond Entinger EQUINE BREEDER HEDGE FUND ACCOUNTANT LAB - BLOOD ORDERAB LES Performing Organization Address City/State/ZIP Code Phon e Number [facility] [address] [place] [address] [facility] (ABNORMAL) UA with Microscopic reflex to Culture (09/01/2018 1:30 PM CDT) [facility] gist Method Time Signature Color Urine Yellow 09/01/2018 [facility] 1:56 PM CDT [facility] Appearance Urine Clear 09/01/2018 [facility] F 1:56 PM CDT [facility] Glucose Urine Negative NEG^Negat 09/01/2018 [facility] colleen mg/dL 1:56 PM CDT [facility] Bilirubin Urine Negative NEG^Negat 09/01/2018 [facility] colleen 1:56 PM CDT [facility] Ketones Urine Negative NEG^Negat 09/01/2018 [facility] colleen mg/dL 1:56 PM CDT [facility] Specific [place] 1.016 1.003 - 09/01/2018 [facility] F Urine 1.035 1:56 PM CDT [facility] Blood Urine Negative NEG^Negat 09/01/2018 [facility] colleen 1:56 PM CDT [facility] pH Urine 5.5 5.0 - 7.0 09/01/2018 [facility] pH 1:56 PM CDT [facility] Protein Albumin Negative NEG^Negat 09/01/2018 [facility] Urine colleen mg/dL 1:56 PM CDT [facility] Urobilinogen Normal 0.0 - 2.0 09/01/2018 [facility] mg/dL mg/dL 1:56 PM CDT [facility] Nitrite Urine Negative NEG^Negat 09/01/2018 [facility] colleen 1:56 PM CDT [facility] Leukocyte Negative NEG^Negat 09/01/2018 [facility] Esterase Urine colleen 1:56 PM CDT [facility] Source Midstream 09/01/2018 [facility] Urine 1:39 PM CDT [facility] WBC Urine 1 0 - 5 09/01/2018 [facility] 1:56 PM CDT [facility] RBC Urine 0 0 - 2 09/01/2018 [facility] /HPF 1:56 PM CDT [facility] Mucous Urine Present (A) NEG^Negat 09/01/2018 [facility] colleen /LPF 1:56 PM CDT [facility] Specimen (Source) Anatomical Collection Method Collection Time Re ceived Time Location / / Volume Laterality Examination of MID-STREAM URINE 09/01/2018 1:30 2018 1:39 midstream urine SPECIMEN / PM CDT PM CDT specimen Unknown (procedure) Kevin Carrillo MD LAB - URINE ORDERABLES Performing Organization Address City/State/ZIP Code Phon e Number [facility] [address] [place] [address] [facility] Head CT w/o contrast (09/01/2018 11:58 AM [...] 09/01/2018 [facility] g/dL 7:20 AM CDT [facility] Specimen Anatomical Collection Method Collection Time Receive d Time (Source) Location / / Volume Laterality Blood specimen 09/01/2018 7:11 AM 019 7:13 (specimen) CDT AM CDT Jennifer Saba MD LAB - BLOOD ORDERABLES Performing Organization Address City/[facility]/ZIP Code Phon e Number [address] Hemoglobin (08/31/2018 7:21 AM CDT) athologist Signature Hemoglobin 13.9 13.3 - 17.7 08/31/2018 [facility] g/dL 7:38 AM CDT [facility] Specimen Anatomical Collection Method Collection Time Receive d Time (Source) Location / / Volume Laterality Blood specimen 08/31/2018 7:21 AM 019 7:22 (specimen) CDT AM CDT Kevin Carrillo MD LAB - BLOOD ORDERABLES Performing Organization Address City/[facility]/ZIP Code Phon e Number [address] UA with Microscopic reflex to Culture (08/30/2018 2:40 PM CDT) Patholo gist Method Time Signature Color Urine Light Yellow 08/30/2018 [facility] 2:49 PM CDT [facility] Appearance Urine Clear 08/30/2018 [facility] F 2:49 PM T [facility] Glucose Urine Negative NEG^Negat 08/30/2018 [facility] colleen mg/dL 2:49 PM T [facility] Bilirubin Urine Negative NEG^Negat 08/30/2018 [facility] colleen 2:49 PM T [facility] Ketones Urine Negative NEG^Negat 08/30/2018 [facility] colleen mg/dL 2:49 PM T [facility] Specific [place] 1.029 1.003 - 08/30/2018 [facility] O F Urine 1.035 2:49 PM T [facility] Blood Urine Negative NEG^Negat 08/30/2018 [facility] colleen 2:49 PM T [facility] pH Urine 6.5 5.0 - 7.0 08/30/2018 [facility] pH 2:49 PM T [facility] Protein Albumin Negative NEG^Negat 08/30/2018 [facility] Urine colleen mg/dL 2:49 PM T [facility] Urobilinogen Normal 0.0 - 2.0 08/30/2018 [facility] mg/dL mg/dL 2:49 PM T [facility] Nitrite Urine Negative NEG^Negat 08/30/2018 [facility] colleen 2:49 PM T [facility] Leukocyte Negative NEG^Negat 08/30/2018 [facility] Esterase Urine colleen 2:49 PM T [facility] Source Midstream 08/30/2018 [facility] Urine 2:45 PM T [facility] WBC Urine 0 0 - 5 08/30/2018 [facility] /HPF 2:49 PM T [facility] RBC Urine 1 0 - 2 08/30/2018 [facility] /HPF 2:49 PM T [facility] Specimen (Source) Anatomical Collection Method Collection Time Re ceived Time Location / / Volume Laterality Examination of MID-STREAM URINE 08/30/2018 2:40 2018 2:45 midstream urine SPECIMEN / PM CDT PM CDT specimen Unknown (procedure) Armida Lancaster MD LAB - URINE ORDERABLES Performing Organization Address City/State/ZIP Code Phon e Number [facility] [address] [place] [address] [facility] (ABNORMAL) CT Abdomen Pelvis w Contrast (08/30/2018 2:22 PM CDT) [facility] gist Method Time Signature Radiologist Hematomas RADIOLOGY [...] 1:41 CDT PM CDT Guero Wynn MD [facility] POCT Performing Organization Address City/State/ZIP Code Phon [...] 1.14 08/30/2018 [facility] 2:02 PM CDT [facility] Specimen Anatomical Collection Method Collection Time Receive d Time (Source) Location / / Volume Laterality Blood specimen 08/30/2018 1:33 PM 019 1:45 (specimen) CDT PM CDT Armida Lancaster MD LAB - BLOOD ORDERABLES Performing Organization Address City/[facility]/ZIP Code Phon e Number [address] [address] [facility] (ABNORMAL) Partial thromboplastin time (08/30/2018 1:33 PM CDT) P athologist Signature PTT 43 (H) 22 - 37 sec 08/30/2018 [facility] 2:02 PM CDT [facility] Specimen Anatomical Collection Method Collection Time Receive d Time (Source) Location / / Volume Laterality Blood specimen 08/30/2018 1:33 PM 019 1:45 (specimen) CDT PM CDT Armida Lancaster MD LAB - BLOOD ORDERABLES Performing Organization Address City/[facility]/ZIP [facility] Phon e Number [address] [address] [facility] ABO/Rh type and screen (08/30/2018 1:33 PM CDT) Patholo gist Method Time Signature ABO AB 08/30/2018 [facility] 2:12 PM CDT [facility] RH(D) Pos [facility] Antibody Neg 08/30/2018 [facility] Screen 2:40 PM CDT [facility] Test Valid [facility] 08/30/2018 [facility] 1:59 PM CDT [facility] Specimen 09/02/2018 08/30/2018 [facility] Expires 1:59 PM CDT [facility] Specimen Anatomical Collection Method Collection Time Receive d Time (Source) Location / / Volume Laterality Blood specimen 08/30/2018 1:33 PM 019 1:45 (specimen) CDT PM CDT Armida Lancaster MD LAB - BLOOD BANK TEST ORDER Performing Organization Address City/[facility]/ZIP Code Phon e Number [address] [address] [facility] Fibrinogen activity (08/30/2018 1:33 PM CDT) athologist Signature Fibrinogen 414 200 - 420 08/30/2018 [place] mg/dL 2:02 PM CDT [facility] Specimen Anatomical Collection Method Collection Time Receive d Time (Source) Location / / Volume Laterality Blood specimen 08/30/2018 1:33 PM 019 1:45 (specimen) CDT PM CDT Armida Lancaster MD LAB - BLOOD ORDERABLES Performing Organization Address City/[facility]/ZIP Code Phon e Number [address] [address] [facility] Lipase (08/30/2018 1:33 PM CDT) athologist Signature Lipase 128 0 - 194 U/L 08/30/2018 [facility] 2:[address] [facility] Specimen Anatomical Collection Method Collection Time Receive d Time (Source) Location / / Volume Laterality Blood specimen 08/30/2018 1:33 PM 019 1:45 (specimen) CDT PM CDT Armida Lancaster MD LAB - BLOOD ORDERABLES Performing Organization Address City/[facility]/ZIP Code Phon e Number [address] [address] [facility] (ABNORMAL) Comprehensive metabolic panel (08/30/2018 1:33 PM CDT) athologist Signature Sodium 140 133 - 144 08/30/2018 [facility] mmol/L 2:02 PM CDT [facility] Potassium 3.8 3.4 - 5.3 08/30/2018 [facility] mmol/L 2:02 PM CDT [facility] Chloride 106 98 - 110 08/30/2018 [facility] mmol/L 2:02 PM [facility] Carbon Dioxide 26 20 - 32 08/30/2018 [facility] mmol/L 2:08 PM [facility] Anion Gap 8 3 - 14 08/30/2018 [facility] mmol/L 2:08 PM [facility] Glucose 88 70 - 99 08/30/2018 [facility] mg/dL 2:08 PM [facility] Urea Nitrogen 19 7 - 21 08/30/2018 [facility] mg/dL 2:08 PM [facility] Creatinine 0.82 0.50 - 08/30/2018 [facility] 1.00 mg/dL 2:08 PM [facility] GFR Estimate >90 >60 08/30/2018 [place] mL/min/{1. 2:08 PM [facility] 73_m2} [facility] Comment: Non GFR Calc Starting 06/03/2018, serum creatinine ba sed estimated GFR (eGFR) will be calculated using the Chronic Kidney Dise [facility] Epidemiology Collaboration (CKD-EPI) equation. GFR Estimate If >90 >60 mL/min/{1.73_m2} 08/30/2018 2: 08 PM [facility] Black [facility] Comment: GFR Calc Starting 06/03/2018, serum creatinine ba sed estimated GFR (eGFR) will be calculated using the Chronic Kidney Dise [facility] Epidemiology Collaboration (CKD-EPI) equation. Calcium 9.0 (L) 9.1 - 10.3 08/30/2018 2:08 PM [facility] mg/dL [facility] Bilirubin Total 1.8 (H) 0.2 - 1.3 08/30/2018 2:11 PM [facility] [place] mg/dL [facility] Albumin 4.1 3.4 - 5.0 g/dL 08/30/2018 2:11 PM [facility] Protein Total 7.9 6.8 - 8.8 g/dL 08/30/2018 2:11 PM [facility] Alkaline Phosphatase 97 65 - 260 U/L 08/30/2018 2:11 PM [facility] ALT 25 0 - 50 U/L 08/30/2018 2:11 PM [facility] AST 22 0 - 35 U/L 08/30/2018 2:11 PM [facility] Specimen Anatomical Collection Method Collection Time Receive d Time (Source) Location / / Volume Laterality Blood specimen 08/30/2018 1:33 PM 019 1:45 (specimen) CDT PM CDT Armida Lancaster MD LAB - BLOOD ORDERABLES Performing Organization Address City/State/ZIP Code Phon e Number [facility] [address] [place] [address] [facility] CBC with platelets differential (08/30/2018 1:33 PM CDT) [facility] gist Method Time Signature WBC 5.9 4.0 - 08/30/2018 [facility] 11.0 1:55 PM CDT [facility] 10e9/L [facility] RBC Count 5.04 4.4 - 5.9 08/30/2018 [facility] 10e12/L 1:55 PM T [facility] Hemoglobin 14.5 13.3 - 08/30/2018 [facility] 17.7 g/dL 1:55 PM CDT [facility] Hematocrit 44.0 40.0 - 08/30/2018 [facility] 53.0 % 1:55 PM CDT [facility] MCV 87 78 - 100 08/30/2018 [facility] fl 1:55 PM CDT [facility] MCH 28.8 26.5 - 08/30/2018 [facility] 33.0 pg 1:55 PM T [facility] MCHC 33.0 31.5 - 08/30/2018 [facility] 36.5 g/dL 1:55 PM CDT [facility] RDW 13.2 10.0 - 08/30/2018 [facility] 15.0 % 1:55 PM T [facility] Platelet Count 188 150 - 450 08/30/2018 [facility] 10e9/L 1:55 PM T [facility] Diff Method Automated 08/30/2018 [facility] Method 1:55 PM T [facility] % Neutrophils 74.1 % 08/30/2018 [facility] 1:55 PM CDT [facility] % Lymphocytes 16.8 % 08/30/2018 [facility] 1:55 PM CDT [facility] % Monocytes 7.4 % 08/30/2018 [facility] 1:55 PM CDT [facility] % Eosinophils 1.2 % 08/30/2018 [facility] 1:55 PM CDT [facility] % Basophils 0.3 % 08/30/2018 [facility] 1:55 PM CDT [facility] % Immature 0.2 % 08/30/2018 [facility] Granulocytes 1:55 PM CDT [facility] Nucleated RBCs 0 0 /100 08/30/2018 [facility] 1:55 PM CDT [facility] Absolute 4.4 1.6 - 8.3 08/30/2018 [facility] Neutrophil 10e9/L 1:55 PM CDT [facility] Absolute 1.0 0.8 - 5.3 08/30/2018 [facility] Lymphocytes 10e9/L 1:55 PM CDT [facility] Absolute 0.4 0.0 - 1.3 08/30/2018 [facility] Monocytes 10e9/L 1:55 PM CDT [facility] Absolute 0.1 0.0 - 0.7 08/30/2018 [facility] Eosinophils 10e9/L 1:55 PM CDT [facility] Absolute 0.0 0.0 - 0.2 08/30/2018 [facility] Basophils 10e9/L 1:55 PM CDT [facility] Abs Immature 0.0 0 - 0.4 08/30/2018 [facility] Granulocytes 10e9/L 1:55 PM CDT [facility] Absolute 0.0 08/30/2018 [facility] Nucleated RBC 1:55 PM CDT [facility] Specimen Anatomical Collection Method Collection Time Receive d Time (Source) Location / / Volume Laterality Blood specimen 08/30/2018 1:33 PM 019 1:45 (specimen) CDT PM CDT Armida Lancaster MD LAB - BLOOD ORDERABLES Performing Organization Address City/State/ZIP Code Phon e Number [facility] [address] [place] [address] [facility] (ABNORMAL) ISTAT INR POCT (08/30/2018 1:32 PM [...] 1:40 CDT PM CDT Guero Wynn MD [facility] POCT Performing Organization Address City/State/ZIP Code Phon e Number [facility] POINT OF CARE TEST, HANDHELD METER POINT OF CARE TEST, HANDHELD METER documented in this encounter Visit Diagnoses Diagnosis Drug-induced constipation - Primary Other constipation Psoas hematoma, left, secondary to antic oagulant therapy, subsequent encounter Hematoma of right psoas region to antico agulant therapy, initial 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 documented in this encounter Care Teams Slab Lifting Supervisor Relationship Specialty Start Date End Date Stephen Sauceda PCP - General Pediatrics 03/06/17 06/24/[address] [address] documented as of this encounter
--- OUTSIDE RECORDS SUMMARY | 2022-04-10 10:26 | XMS_ITS | Encounter Summary ---
:2000 Author Organization [place] Address [facility]0 [facility] [place] [address] Care Team Providers Name Role Phone Stephen Sauceda Rudy Primary Care Provider Encounter Details Date Type Department Care Team Description 04/30/2018 Orders Only [facility] Cordell Juarez Atri [facility] (H) (Primary Dx) [address] [id number] [place], [place] [phone] (Wo rk) Social History Tobacco Use Types [...] Procedure Cardiology Cordell Juarez MD [facility]0 [facility] [place] [address] (Wo rk) 07/27/2022 Office Visit Cardiology Cordell Juarez MD [address] [address] (Wo rk) documented as of this encounter Procedures Procedure Name Priority Date/Time Associated Diagnosis Comme nts JAIDEN POWELL VIRUS Routine 04/30/2018 2:23 PM Atrial tachycard ia Results for this ANTIBODY IGG MUNICIPAL BOND TRADER (H) procedure are i n the results section. CBC WITH PLATELETS & Routine 04/30/2018 2:23 PM Atrial tachyca rdia Results for this DIFFERENTIAL MUNICIPAL BOND TRADER (H) procedure are i n the results section. documented in this encounter Results (ABNORMAL) Jaiden Powell Virus Antibody IgG (04/30/2018 2:23 PM MUNICIPAL BOND TRADER) Analysis Performed At [facility] Time Signature EBV Capsid >8.0 (H) 0.0 - 0.8 05/01/2018 [facility] IgG AI 9:38 AM [facility] Comment: Positive, suggests recent or past exposu re Antibody index (AI) values reflect quali tative changes in antibody concentration that cannot be directly as sociated with clinical condition or disease state. EBV Nuclear Antigen >8.0 (H) 0.0 - 0.8 AI 05/01/2018 9:38 A M [facility] ([facility]) Antibody IgG [facility] Comment: Positive, suggests convalescent phase or past exposure Antibody index (AI) values reflect quali tative changes in antibody concentration that cannot be directly as sociated with clinical condition or disease state. EBV Antibody to <0.2 0.0 - 0.8 AI 05/01/2018 9:38 AM T [facility] Early Antigen IgG [facility] Comment: No detectable antibody. Antibody index (AI) values reflect quali tative changes in antibody concentration that cannot be directly as sociated with clinical condition or disease state. Specimen Anatomical Collection Method Collection Time Receive d Time (Source) Location / / Volume Laterality Blood specimen 04/30/2018 2:23 PM 018 2:24 (specimen) MUNICIPAL BOND TRADER PM MUNICIPAL BOND TRADER Cordell Juarez MD LAB - BLOOD ORDERABLES Performing Organization Address City/State/ZIP Code Phon e Number [facility] [address] [place] [address] [place] (ABNORMAL) CBC with platelets and differential (04/30/2018 2:23 PM [facility]) [facility] gist Method Time Signature WBC 6.5 4.0 - 04/30/2018 [facility] 11.0 2:27 PM [facility] 10e9/L [facility] RBC Count 6.21 (H) 4.4 - 5.9 04/30/2018 [facility] 10e12/L 2:27 PM [facility] Hemoglobin 18.0 (H) 13.3 - 04/30/2018 [facility] 17.7 g/dL 2:27 PM [facility] Hematocrit 54.3 (H) 40.0 - 04/30/2018 [facility] 53.0 % 2:27 PM [facility] MCV 87 78 - 100 04/30/2018 [facility] fl 2:27 PM [facility] MCH 29.0 26.5 - 04/30/2018 [facility] 33.0 pg 2:27 PM [facility] MCHC 33.1 31.5 - 04/30/2018 [facility] 36.5 g/dL 2:27 PM [facility] RDW 13.1 10.0 - 04/30/2018 [facility] 15.0 % 2:27 PM [facility] Platelet Count 201 150 - 450 04/30/2018 [facility] 10e9/L 2:27 PM [facility] Diff Method Automated 04/30/2018 [facility] Method 2:27 PM [facility] % Neutrophils 67.2 % 04/30/2018 [facility] 2:27 PM [facility] % Lymphocytes 20.5 % 04/30/2018 [facility] 2:27 PM [facility] % Monocytes 10.4 % 04/30/2018 [facility] 2:27 PM [facility] % Eosinophils 1.1 % 04/30/2018 [facility] 2:27 PM [facility] % Basophils 0.5 % 04/30/2018 [facility] 2:27 PM [facility] % Immature 0.3 % 04/30/2018 [facility] Granulocytes 2:27 PM [facility] Nucleated RBCs 0 0 /100 04/30/2018 [facility] 2:27 PM [facility] Absolute 4.4 1.6 - 8.3 04/30/2018 [facility] Neutrophil 10e9/L 2:27 PM [facility] Absolute 1.3 0.8 - 5.3 04/30/2018 [facility] Lymphocytes 10e9/L 2:27 PM [facility] Absolute 0.7 0.0 - 1.3 04/30/2018 [facility] Monocytes 10e9/L 2:27 PM [facility] Absolute 0.1 0.0 - 0.7 04/30/2018 [facility] Eosinophils 10e9/L 2:27 PM [facility] Absolute 0.0 0.0 - 0.2 04/30/2018 [facility] Basophils 10e9/L 2:27 PM [facility] Abs Immature 0.0 0 - 0.4 04/30/2018 [facility] Granulocytes 10e9/L 2:27 PM [facility] Absolute 0.0 04/30/2018 [facility] Nucleated RBC 2:27 PM [facility] Specimen Anatomical Collection Method Collection Time Receive d Time (Source) Location / / Volume Laterality Blood specimen 04/30/2018 2:23 PM 018 2:24 (specimen) MUNICIPAL BOND TRADER PM MUNICIPAL BOND TRADER Cordell Juarez MD LAB - BLOOD ORDERABLES Performing Organization Address City/State/ZIP Code Phon e Number [place] [address] [address] [phone] documented in this encounter Visit Diagnoses Diagnosis Atrial tachycardia (H) - Primary Other specified cardiac dysrhythmias documented in this encounter Care Teams Supervisor In Charge Relationship Specialty Start Date End Date Stephen Sauceda PCP - General Pediatrics 03/06/17 06/24/19 [facility] [address] [place] [address] documented as of this encounter
--- OUTSIDE RECORDS SUMMARY | 2022-04-10 10:26 | XMS_ITS | Encounter Summary ---
:2000 Author Organization [place] Address [facility] [place] [address] Care Team Providers Name Role Phone KomalStephen Primary Care Provider Encounter Details Date Type Department Care Team Description 01/15/2018 Orders Only [facility] Cordell Juarez Hypo plastic left Pediatric Specialty MD heart syndrome Clinic [address] (Primary Dx) [address] [facility] [place] [id number] [phone] Social History Tobacco Use Types Packs/Day Years [...] Ancillary Procedure Cardiology Cordell Juarez MD [address] [place], [place] [id number] [place] [address] (Wo rk) 07/27/2022 Office Visit Cardiology LarryCordell MD [address] [place] [address] (Wo rk) documented as of this encounter 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
--- OUTSIDE RECORDS SUMMARY | 2022-04-10 10:26 | XMS_ITS | Encounter Summary ---
:2000 Author Organization [place] Address [address] [place] [address]. [place] [address] Care Team Providers Name Role Phone Komal, Stephen Grant Primary Care Provider Encounter Details Date Type Department Care Team Description 05/02/2018 [facility] Only [facility] Cordell Juarez Atri al tachycardia Pediatric Specialty MD (H) Clinic [address] [facility] [place] [id number] [phone] Social History Tobacco Use Types Packs/Day Years [...] 07/27/2022 Ancillary Procedure Cardiology Cordell Juarez MD [address] [place], [place] [address] [place] [address] (Wo rk) 07/27/2022 Office Visit Cardiology Cordell Juarez MD [address] [place] [address] (Wo rk) documented as of this encounter [...] dysrhythmias documented in this encounter Care Teams Local Owner Operator Truck Driver Relationship Specialty Start Date End Date Stephen Sauceda PCP - General Pediatrics 03/06/17 06/24/19 [facility] [address] [place] [address] documented as of this encounter
--- OUTSIDE RECORDS SUMMARY | 2022-04-10 10:26 | XMS_ITS | Encounter Summary ---
:2000 Author Organization [place] Address [facility] [address] Care Team Providers Name Role Phone KomalStephen Primary Care Provider [facility] Primary Care Provider [phone] Magnus Zayas DO Primary Care Provider [phone] Magnus Zayas DO Unavailable [phone] Celeste Scales MD Unavailable Mangus Zayas DO Unavailable [phone] Magda Winchester MD Primary Care Provider Reason for Visit Reason Comments Medication Refill Encounter Details Date Type Department Care Team Description 07/02/2018 Refill [facility] Specialty [address] Juarez MD Medication Refill Center [facility] [address] [address] [place] [address] [address] [place] [address] [phone] Social History Tobacco Use Types Packs/Day Years [...] Juarez MD [address] [place], [place] [address] (Wo rk) 07/27/2022 Office Visit Cardiology Cordell Juarez MD [address] [place], [place] [address] (Wo rk) documented as of this encounter 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 documented in this encounter Additional Health Concerns Infection Onset Date Last Indicated Resolved Time Rule Out COVID-19 12/18/2019 12/18/2019 12/19/2019 3:4 2 PM CDT Rule Out COVID-19 12/21/2019 12/21/2019 12/22/2019 2:3 2 AM CDT documented as of this encounter Care Teams [employer] Profession[employer] Relationship Specialty Start Date End Date Stephen Sauceda PCP - General Pediatrics 03/06/17 06/24/19 [facility] [address] [place] [address] [facility] PCP - General 06/25/19 02/22/[address] [place] [address] Magnus Zayas, PCP - General Student in organized 02/23/20 09/17/[address] education/training program [address] [place] [address] Magda Winchester PCP - General Family Medicine 09/18/21 MD [place] Magnus Zayas, Assigned PCP 02/28/2004/06 [address] [address] Celeste Scales MD Assigned PCP 11/10/20 11/19/[address] [address] Magnus Zayas, Assigned PCP 11/20/[address] DO [address] [id number] documented as of this encounter
--- OUTSIDE RECORDS SUMMARY | 2022-04-10 10:26 | XMS_ITS | Encounter Summary ---
:2000 Author Organization [place] Address [facility] [place] [address] Care Team Providers Name Role Phone Komal, Stephen Grant Primary Care Provider Encounter Details Date Type Department Care Team Description 04/30/2018 Orders Only [facility] Maxx Figueroa V Atrial t achycardia (H) [facility] [address] [facility] [address] [place] [address] Social History Tobacco Use Types [...] Cordell Juarez MD [facility] [address] [phone] (Wo lucio) 07/27/2022 Office Visit Cardiology Cordell Juarez MD [address] [phone] (Arleen valdes) documented as of this encounter Procedures Procedure Name Priority Date/Time Associated Diagnosis Comme nts IGG Routine 04/30/2018 2:23 PM Atrial tachycardia (H) Results for this GAS DISTRIBUTION SUPERVISOR procedure are i n the results section. documented in this encounter Results IgG (04/30/2018 2:23 PM GAS DISTRIBUTION SUPERVISOR) P athologist Signature IGG 1,558 356 - 1,949 05/01/2018 [facility] mg/dL 9:37 AM [facility] Specimen Anatomical Collection Method Collection Time Receive d Time (Source) Location / / Volume Laterality Blood specimen 04/30/2018 2:23 PM 018 2:24 (specimen) GAS DISTRIBUTION SUPERVISOR PM GAS DISTRIBUTION SUPERVISOR Cordell Juarez MD LAB - BLOOD ORDERABLES Performing Organization Address City/State/ZIP Code Phon e Number [facility] [address] documented in this encounter Visit Diagnoses Diagnosis Atrial tachycardia (H) Other specified cardiac dysrhythmias documented in this encounter Care Teams Hotel Receptionist Relationship Specialty Start Date End Date Stephen Sauceda PCP - General Pediatrics 03/06/17 06/24/19 [facility] [address] [place] [address] documented as of this encounter
--- OUTSIDE RECORDS SUMMARY | 2022-04-10 10:26 | XMS_ITS | Encounter Summary ---
:2000 Author Organization [place] Address [address] [place] [address]. [place] [address] Care Team Providers Name Role Phone Stephen Sauceda Primary Care Provider Reason for Referral - Closed Specialty Diagnoses / Procedures Referred By Contact Refer red To Contact Cardiology Diagnoses Chest pain, unspecified type Zzrh Cardiac Test cc Zzrh Cardiac Test [facility] Procedures Zio Patch Holter [address] [place] [phone] Fax: Referral ID Status Reason Start Date Expiration Date Visits Requ ested Visits Authorized [id number] Closed 04/30/2018 04/30/2019 1 1 ER MILL ROLLER Encounter Details Date Type Department Care Team Description 04/30/2018 Orders Only [facility] Cordell Juarez, Chest pain, Center unspecified type [address] [facility] ( Primary Dx) [address] [place] [address] [phone] (Wo rk) Social History Tobacco Use Types [...] Ancillary Procedure Cardiology Cordell Juarez MD [address] [place] [address] (Wo rk) 07/27/2022 Office Visit Cardiology Cordell Juarez MD [address] [place] [address] (Wo rk) documented as of this encounter Results Zio Patch Holter (04/30/2018) Narrative [facility] - 04/30/[address] [address] 04/30/2018 Patient: ??Jude Bills Chart: [id number] : ??2000 Age: ??18 year old Sex: ??male Procedure: ??ZioPatch Monitor. Benefits Representative performing hook-up: ??Charles Matt Cordell Juarez MD CV CARDIAC SERVICES ORDERABL ES Performing Organization Address City/State/ZIP Code Phon e Number [facility] documented in this encounter Visit Diagnoses Diagnosis Chest pain, unspecified type Chest pain, unspecified type - Primary documented in this encounter Care Teams Field Marketing Lead Relationship Specialty Start Date End Date Stephen Sauceda PCP - General Pediatrics 03/06/17 06/24/19 [facility] [address] [place] [address] documented as of this encounter
--- OUTSIDE RECORDS SUMMARY | 2022-04-10 10:26 | XMS_ITS | Encounter Summary ---
:2000 Author Organization [place] Address [address] [place] [address]. [place] [address] Care Team Providers Name Role Phone Stephen Sauceda Primary Care Provider Reason for Visit Reason Onset Date Comments Clinic Care Coordination - Follow-up 05/02/2018 Encounter Details Date Type Department Care Team Description 05/02/[facility] Pediatric Specialty MD Coordination - Clinic [address] Follow-up [address] [place] [address] [phone] Social History Tobacco Use Types Packs/Day Years [...] Roth RN on 05/02/2018 at 11:56 AM WARE LEAD documented in this encounter Plan of Treatment Upcoming Encounters Date Type Specialty Care Team Description 07/27/2022 Ancillary Procedure Cardiology Cordell Juarez MD [address] [facility] [place] [address] (Wo rk) 07/27/2022 Office Visit Cardiology Cordell Juarez MD [address] [facility] [place] [address] (Wo rk) documented as of this encounter Visit Diagnoses Not on filedocumented in this encounter Care Teams Narrow Gauge Operator Relationship Specialty Start Date End Date Stephen Sauceda PCP - General Pediatrics 03/06/17 06/24/19 [facility] [address] [place] [address] documented as of this encounter
--- OUTSIDE RECORDS SUMMARY | 2022-04-10 10:26 | XMS_ITS | Encounter Summary ---
:2000 Author Organization [place] Address [address] [facility] [place] [address] Care Team Providers Name Role Phone Komal Stephen Grant Primary Care Provider Encounter Details Date Type Department Care Team Description 04/30/2018 Hospital Encounter [facility] LarryCordell MD [facility] [address] [facility] [address] [facility] [place] [address] [phone] Social History Tobacco Use Types Packs/Day Years [...] 08/30/2018 Hypoplastic left heart Please supply a Rawporter concentrator. syndrome Patient to receive 2L Oxygen PRN by nasal cannula for family trip to [place]. sildenafil (REVATIO) 20 Take 1 tablet (20 [...] 07/27/2022 Ancillary Procedure Cardiology Cordell Juarez MD [address] [place] [address] (Wo rk) 07/27/2022 Office Visit Cardiology Cordell Juarez MD [address] [place] [address] (Wo rk) documented as of this encounter Visit Diagnoses Not on filedocumented in this encounter Care Teams Legal Transcriber Relationship Specialty Start Date End Date Stephen Sauceda PCP - General Pediatrics 03/06/17 06/24/19 [facility] [address] [place] [address] documented as of this encounter
--- OUTSIDE RECORDS SUMMARY | 2022-04-10 10:26 | XMS_ITS | Encounter Summary ---
:2000 Author Organization [place] Address [facility] [place] [address] Care Team Providers Name Role Phone Stephen [...] Ancillary Procedure Cardiology Cordell Juarez MD [address] [place] [address] (Wo rk) 07/27/2022 Office Visit Cardiology Cordell Juarez MD [address] [place] [phone] (Wo rk) documented as of this encounter Visit Diagnoses Not on filedocumented in this encounter Care Teams Jacquard Plate Maker Relationship Specialty Start Date End Date Stephen Sauceda PCP - General Pediatrics 03/06/17 06/24/19 [facility] [address] [place] [address] documented as of this encounter
--- OUTSIDE RECORDS SUMMARY | 2022-04-10 10:26 | XMS_ITS | Encounter Summary ---
:2000 Author Organization [place] Address [facility] [place] [address] Care Team Providers Name Role Phone Stephen Sauceda Primary Care Provider Reason for Visit Reason Comments Medication Refill Encounter Details Date Type Department Care Team Description 08/22/2018 Refill [facility] [place] [facility] Cordell Juarez MD Medication Refill Explorer Pediatric [facility] [address] [place] [address] [place] [address] [place] [address] Social History Tobacco Use Types [...] Ancillary Procedure Cardiology Cordell Juarez MD [address] [facility] [place] [address] (Wo rk) 07/27/2022 Office Visit Cardiology LarryCordell MD [address] [facility] [place] [address] (Wo rk) documented as of this encounter Visit Diagnoses Diagnosis Chest pain, unspecified type documented in this encounter Care Teams Risk Advisor Relationship Specialty Start Date End Date Stephen Sacueda PCP - General Pediatrics 03/06/17 06/24/19 [facility] [address] [place] [address] documented as of this encounter
--- OUTSIDE RECORDS SUMMARY | 2022-04-10 10:26 | XMS_ITS | Encounter Summary ---
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 Reason for Visit - Closed Specialty Diagnoses / Procedures Referred By Contact Refer red To Contact Cardiology Diagnoses Chest pain, unspecified type Zzrh Cardiac Test [facility] Zzrh Cardiac Test [facility] Procedures Zio Patch Holter [address] [place] [phone] Fax: Referral ID Status Reason Start Date Expiration Date Visits Requ ested Visits Authorized [id number] Closed 04/30/2018 04/30/2019 1 1 Encounter Details Date Type Department Care Team Description 04/30/2018 Hospital Encounter [facility] Larry, Cordell Barajas, Chest pain, Care Center unspecified type [address] [address] [phone] Social History Tobacco Use Types Packs/Day Years [...] Hypoplastic left heart Please supply a small Pocketbook portable tank concentrator. syndrome Patient to receive [...] a 14 day Pediatric Zio Patch Monitor. 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 documented in this encounter Results Zio Patch Holter (04/30/2018) Narrative [facility] - 04/30/2018 [facility] [address] [facility] [address] [facility] [address] 04/30/2018 Patient: ??Jude Bills Chart: [id number] : ??2000 Age: ??18 year old Sex: ??male Procedure: ??ZioPatch Monitor. Closet Organizer performing hook-up: ??Charles Matt Cordell Juarez MD CV CARDIAC SERVICES ORDERABL ES Performing Organization Address City/State/ZIP Code Phon e Number [facility] documented in this encounter Visit Diagnoses Diagnosis Chest pain, unspecified type documented in this encounter Care Teams Competitive Athlete Relationship Specialty Start Date End Date Stephen Sauceda PCP - General Pediatrics 03/06/17 06/24/[address] [address] documented as of this encounter
--- OUTSIDE RECORDS SUMMARY | 2022-04-10 10:26 | XMS_ITS | Encounter Summary ---
:2000 Author Organization [place] Address [facility] [place] [address] Care Team Providers Name Role Phone KomalStephen Primary Care Provider Encounter Details Date Type Department Care Team Description 01/14/2018 Orders Only [facility] Cordell Juarez Hypo plastic left Pediatric Specialty MD heart syndrome Clinic [address] (Primary Dx) [address] [facility] [place] [id number] [phone] Social History Tobacco Use Types Packs/Day Years [...] 07/27/2022 Ancillary Procedure Cardiology Cordell Juarez MD [address] [place], [place] [address] [place] [address] (Wo rk) 07/27/2022 Office Visit Cardiology LarryCordell MD [address] [place] [address] (Wo rk) documented as of this encounter 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
--- OUTSIDE RECORDS SUMMARY | 2022-04-10 10:26 | XMS_ITS | Encounter Summary ---
:2000 Author Organization [place] Address [address] [place] [address] Care Team Providers Name Role Phone Stephen Sauceda Primary Care Provider Reason for Visit Reason Comments Chest Pain Encounter Details Date Type Department Care Team Description 04/28/2018 Emergency [facility] Olimpia Umanzor Tachycardia; Emergency Department MD Tacho Atypical chest pain [address] [place] [address] [address] [place] [address] (Wo rk) Social History Tobacco [...] Comments Blood Pressure 124/79 04/28/2018 6:21 PM BRANCH OPERATION EVALUATION MANAGER Pulse 97 04/28/2018 2:07 PM BRANCH OPERATION EVALUATION MANAGER Temperature 36.8 ??C (98.2 ??F) 04/28/2018 6:21 PM BRANCH OPERATION EVALUATION MANAGER Respiratory Rate 16 04/28/2018 6:21 PM BRANCH OPERATION EVALUATION MANAGER Oxygen Saturation 96% 04/28/2018 6:21 PM BRANCH OPERATION EVALUATION MANAGER Inhaled Oxygen Concentration - - Weight 63.5 kg (139 lb 15.9 oz) 04/28/2018 2:07 PM BRANCH OPERATION EVALUATION MANAGER Height - - Body Mass Index 24.05 10/30/2017 2:25 PM CDT Body Mass Index Percentile 73.07 % 04/28/2018 2:07 PM CS T Growth Chart: [facility] (Boys, 2-20 Years) documented in this encounter Discharge Instructions Discharge InstructionsRudy Taylor MD - 04/28/2018 5:59 PM CST Images from the original note were not included. Emergency Department Discharge Information for Jude Roque was seen in the [facility] Emergency Department today for chest pain [...] with 0.4 and 0.8 ml, call us ([phone]) or check with your doctor about the [...] one leg Date Last Reviewed: 10/15/2017 ?? [phone] [employer]. [address] [place] [address]. All rights reserved. This information is not intended as a substitute for professional medical care. Always follow your healthcare professional's instructions. CH OPERATION EVALUATION MANAGER documented in this encounter Medications at Time [...] Hypoplastic left heart Please supply a small [place] concentrator. syndrome Patient to receive 2L Oxygen PRN by nasal cannula for family trip to [place]. sildenafil (REVATIO) 20 Take 1 tablet (20 [...] Ugarte MD - 04/28/2018 3:30 PM CST [facility] Consult Note Pediatric [...] with Dr. Ugarte. Fabienne Navarrete DO Pediatric Superintendent Stevedoring 04/28/2018 6:38 PM Pager: [phone] Attending Attestation: Attestation: This patient has been [...] completion of a Fontan procedure at the [facility] in early childhood educator aide. He had catheter closure of his Fontan fenestration at the [facility] in January 2007. Cardiology was consulted in [...] [place] now with Fenestrated Fontan Done at [facility] Family History: Family History Problem Relation Age of Onset ??? Adopted: Yes ??? Unknown/Adopted Other child adopted from [place] at 10mo of age ??? Unknown/Adopted Other [...] PO2V, HCO3V in the last 168 hours. CH OPERATION EVALUATION MANAGER documented in this encounter ED Notes Krystal Wolfe RN - 04/28/2018 2:04 PM CST Pt has cardiac HX and c/o sudden onset chest pain. 911 called. 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 He had c atheter closure of his Fontan fenestration at the [facility] in January 2007 who presents at 2:07 [...] ??? 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 Congenital anomalies of spleen Polysplenia ??? Esophageal reflux ??? 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 [...] and Surgical History, and Social History inthe [employer] system. 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 He had catheter closure of his Fontan fenestration at the [facility] in January 2007 who presents at 2:07 [...] pending. Randa Umanzor MD 04/28/[address] [facility] EMERGENCY DEPARTMENT Randa Umanzor MD 04/29/18 1611 Randa Umanzor MD 04/29/18 1612 Randa Umanzor MD 04/29/18 1619 CH OPERATION EVALUATION MANAGER documented in this encounter Plan of Treatment Upcoming Encounters Date Type Specialty Care Team Description 07/27/2022 Ancillary Procedure Cardiology Cordell Juarez MD [address] [place], [place] [phone] (Wo rk) 07/27/2022 Office Visit Cardiology Cordell Juarez MD [address] [place], [place] [phone] (Wo rk) Pending Results Name Type Priority Associated Diagnoses Date/Ti me EKG 12 lead EKG STAT 04/28/2018 2:15 PM BRANCH OPERATION EVALUATION MANAGER documented as of this encounter Procedures Procedure Name Priority Date/Time Associated Comments Diagnosis ECHO PEDIATRIC COMPLETE STAT 04/28/2018 5:27 R esults for this PM BRANCH OPERATION EVALUATION MANAGER procedure are i n the results section. XR CHEST 2 VIEWS STAT 04/28/2018 3:18 Results for this PM BRANCH OPERATION EVALUATION MANAGER procedure are i n the results section. CREATINE KINASE Routine 04/28/2018 2:24 Tachycardia Results f or this ISOENZYMES PM BRANCH OPERATION EVALUATION MANAGER procedure are i n the results section. CBC WITH PLATELETS & STAT 04/28/2018 2:24 Resu lts for this DIFFERENTIAL PM BRANCH OPERATION EVALUATION MANAGER procedure are i n the results section. TROPONIN I STAT 04/28/2018 2:24 Results for this PM BRANCH OPERATION EVALUATION MANAGER procedure are i n the results section. INR STAT 04/28/2018 2:24 Results for this PM BRANCH OPERATION EVALUATION MANAGER procedure are i n the results section. PARTIAL THROMBOPLASTIN STAT 04/28/2018 2:24 Re sults for this TIME PM BRANCH OPERATION EVALUATION MANAGER procedure are i n the results section. NT PROBNP INPATIENT Routine 04/28/2018 2:24 Resul ts for this PM BRANCH OPERATION EVALUATION MANAGER procedure are i n the results section. D DIMER QUANTITATIVE Routine 04/28/2018 2:24 Resu lts for this PM BRANCH OPERATION EVALUATION MANAGER procedure are i n the results section. COMPREHENSIVE METABOLIC STAT 04/28/2018 2:24 R esults for this PANEL PM BRANCH OPERATION EVALUATION MANAGER procedure are i n the results section. TROPONIN POCT Routine 04/28/2018 2:21 Results for this PM BRANCH OPERATION EVALUATION MANAGER procedure are i n the results section. EKG 12-LEAD, TRACING STAT 04/28/2018 2:15 ONLY PM BRANCH OPERATION EVALUATION MANAGER documented in this encounter Results Echo Pediatric Complete* (04/28/2018 5:27 PM BRANCH OPERATION EVALUATION MANAGER) Anatomical Region Laterality Modality Echocardiography Specimen (Source) Anatomical Collection Method Collection Time Re ceived Time Location / / Volume Laterality 04/28/2018 4:18 PM BRANCH OPERATION EVALUATION MANAGER Narrative 04/28/2018 5:27 PM BRANCH OPERATION EVALUATION MANAGER [id number] [facility] [id number]^JODIE^RANDA^Tacho ?Study ID: [id number] ?[facility] ?[facility] ?[address] ?[place] [address] ? Pediatric Echocardiogram __ Name: JUDE MERRITT [...] Procedure Note Artemio Silva MD - 04/28/2018 [id number] [id number]^JODIE^RANDA^A Study ID: [id number] [address] [address] Pediatric Echocardiogram __ Name: JUDE MERRITT Study [...] XR Chest 2 Views (04/28/2018 3:18 PM BRANCH OPERATION EVALUATION MANAGER) Anatomical Region Laterality Modality Chest Radio Fluoroscopy Specimen (Source) Anatomical Location Collection Method / Collectio n Time Received Time / Laterality Volume Impressions 04/28/2018 3:47 PM BRANCH OPERATION EVALUATION MANAGER Impression: Stable postoperative chest. No acute pulmonary disease. I have personally reviewed the examinati on and initial interpretation and I agree with the findings. TAMMI CORTEZ MD Narrative 04/28/2018 3:47 PM BRANCH OPERATION EVALUATION MANAGER Exam: XR CHEST 2 VW, 04/28/2018 3:18 [...] BHAVESH D dimer quantitative (04/28/2018 2:24 PM BRANCH OPERATION EVALUATION MANAGER) P athologist Signature D Dimer 0.3 0.0 - 0.50 04/28/2018 [facility] ug/ml FEU 4:49 PM [facility] Comment: This D-dimer assay is intended [...] Volume Laterality 04/28/2018 2:24 PM 8 2:29 BRANCH OPERATION EVALUATION MANAGER PM BRANCH OPERATION EVALUATION MANAGER Randa Umanzor MD LAB - BLOOD ORDERABLES Performing Organization Address City/State/ZIP Code Phon e Number [facility] [address] [place] [address] [facility] Creatine Kinase Isoenzymes (04/28/2018 2:24 PM BRANCH OPERATION EVALUATION MANAGER) athologist Signature CK Total 165 20 - 200 05/01/2018 [facility] U/L 8:45 PM [facility] Comment: (Note) REFERENCE INTERVAL: CK Total Access complete set of age- and/or gende r-specific reference intervals for this test in the [facility] Test Directory ([facility]). CK-MM 100 96 - 100 % 05/01/2018 8:45 PM BRANCH OPERATION EVALUATION MANAGER [facility] Comment: (Note) Sample is moderately hemolyzed. Hemolysi s may affect results. CK-MB 0 0 - 4 % 05/01/2018 8:45 PM BRANCH OPERATION EVALUATION MANAGER [facility] CK-BB 0 0 - 0 % 05/01/2018 8:45 PM BRANCH OPERATION EVALUATION MANAGER [facility] CK Macro Type I 0 0 - 0 % 05/01/2018 8:[address] [facility] CK Macro Type II 0 0 - 0 % 05/01/2018 8:45 PM BRANCH OPERATION EVALUATION MANAGER [facility] Comment: (Note) Performed by [facility], [address] [place] [address] [email or web address], Dominik Ovalle MD, Lab. Director Specimen Anatomical Collection Method Collection Time Receive d Time (Source) Location / / Volume Laterality 04/28/2018 2:24 PM 8 2:29 BRANCH OPERATION EVALUATION MANAGER PM BRANCH OPERATION EVALUATION MANAGER Randa Umanzor MD LAB - BLOOD ORDERABLES Performing Organization Address City/State/ZIP Code Phon e Number [facility] [address] [place] [address] [facility] Nt probnp inpatient (04/28/2018 2:24 PM BRANCH OPERATION EVALUATION MANAGER) athologist Signature N-Terminal Pro 55 0 - 450 04/28/2018 [place] BNP Inpatient pg/mL 4:14 PM [facility] Comment: Reference range shown and results [...] Volume Laterality 04/28/2018 2:24 PM 8 2:29 BRANCH OPERATION EVALUATION MANAGER PM BRANCH OPERATION EVALUATION MANAGER Randa Umanzor MD LAB - BLOOD ORDERABLES Performing Organization Address City/[facility]/ZIP Code Phon e Number [facility] [address] [place] [address] [facility] [address] [place] [address], [facility] [phone] (ABNORMAL) Comprehensive metabolic panel (04/28/2018 2:24 PM BRANCH OPERATION EVALUATION MANAGER) athologist Signature Sodium 140 133 - 144 04/28/2018 [facility] mmol/L 2:53 PM [facility] Potassium 4.0 3.4 - 5.3 04/28/2018 [facility] mmol/L 3:05 PM [facility] Comment: Specimen slightly hemolyzed, po tassium may be falsely elevated Chloride 106 98 - 110 mmol/L 04/28/2018 2:53 PM [facility] Carbon Dioxide 27 20 - 32 mmol/L 04/28/2018 2:53 PM U [facility] Anion Gap 7 3 - 14 mmol/L 04/28/2018 2:53 PM [facility] Glucose 108 (H) 70 - 99 mg/dL 04/28/2018 2:53 PM [facility] Urea Nitrogen 17 7 - 21 mg/dL 04/28/2018 2:53 PM [facility] Creatinine 0.86 0.50 - 1.00 mg/dL 04/28/2018 2:53 PM UN [facility] GFR Estimate >90 >60 mL/min/1.7m2 04/28/2018 2:53 PM U [facility] Comment: Non GFR Calc GFR Estimate If >90 >60 mL/min/1.7m2 04/28/2018 2:53 P M [facility] Black [facility] Comment: GFR Calc Calcium 9.0 (L) 9.1 - 10.3 04/28/2018 2:53 PM [facility] mg/dL [facility] Bilirubin Total 0.8 0.2 - 1.3 04/28/2018 3:05 PM [facility] [place] mg/dL [facility] Albumin 4.2 3.4 - 5.0 g/dL 04/28/2018 2:53 PM [facility] Protein Total 7.8 6.8 - 8.8 g/dL 04/28/2018 3:05 PM UN [facility] Alkaline Phosphatase 110 65 - 260 U/L 04/28/2018 3:05 PM [facility] ALT 30 0 - 50 U/L 04/28/2018 2:53 PM [facility] AST 36 (H) 0 - 35 U/L 04/28/2018 3:05 PM [facility] Comment: Specimen is hemolyzed which can falsely elevate AST. Analysis of a non-hemolyzed specimen may result in a l ower value. Specimen Anatomical Collection Method Collection Time Receive d Time (Source) Location / / Volume Laterality Blood specimen 04/28/2018 2:24 PM 018 2:29 (specimen) BRANCH OPERATION EVALUATION MANAGER PM BRANCH OPERATION EVALUATION MANAGER Randa Umanzor MD LAB - BLOOD ORDERABLES Performing Organization Address City/State/ZIP Code Phon e Number [address] (ABNORMAL) Partial thromboplastin time (04/28/2018 2:24 PM BRANCH OPERATION EVALUATION MANAGER) P athologist Signature PTT 42 (H) 22 - 37 sec 04/28/2018 [facility] 2:45 PM BRANCH OPERATION EVALUATION MANAGER [facility] Specimen Anatomical Collection Method Collection Time Receive d Time (Source) Location / / Volume Laterality Blood specimen 04/28/2018 2:24 PM 018 2:29 (specimen) BRANCH OPERATION EVALUATION MANAGER PM BRANCH OPERATION EVALUATION MANAGER Randa Umanzor MD LAB - BLOOD ORDERABLES Performing Organization Address City/[facility]/ZIP Code Phon e Number [address] (ABNORMAL) INR (04/28/2018 2:24 PM BRANCH OPERATION EVALUATION MANAGER) P athologist Signature INR 1.58 (H) 0.86 - 1.14 04/28/2018 [facility] 2:45 PM [facility] Specimen Anatomical Collection Method Collection Time Receive d Time (Source) Location / / Volume Laterality Blood specimen 04/28/2018 2:24 PM 018 2:29 (specimen) BRANCH OPERATION EVALUATION MANAGER PM BRANCH OPERATION EVALUATION MANAGER Randa Umanzor MD LAB - BLOOD ORDERABLES Performing Organization Address City/[facility]/ZIP Code Phon e Number [address] Troponin I (04/28/2018 2:24 PM BRANCH OPERATION EVALUATION MANAGER) P athologist Signature Troponin I ES <0.015 0.000 - 04/28/2018 [facility] 0.045 ug/L 3:05 PM [facility] Comment: The 99th percentile for upper reference range is 0.045 ug/L. ??Troponin values in the range of 0.045 - 0.120 ug/L may b e associated with risks of adverse clinical events. Specimen Anatomical Collection Method Collection Time Receive d Time (Source) Location / / Volume Laterality Blood specimen 04/28/2018 2:24 PM 018 2:29 (specimen) BRANCH OPERATION EVALUATION MANAGER PM BRANCH OPERATION EVALUATION MANAGER Randa Umanzor MD LAB - BLOOD ORDERABLES Performing Organization Address City/State/ZIP Code Phon e Number [facility] [address] [place] [address] [facility] CBC with platelets differential (04/28/2018 2:24 PM BRANCH OPERATION EVALUATION MANAGER) [facility] gist Method Time Signature WBC 7.6 4.0 - 04/28/2018 [facility] 11.0 2:33 PM [facility] 10e9/L [facility] RBC Count 5.70 4.4 - 5.9 04/28/2018 [facility] 10e12/L 2:33 PM [facility] Hemoglobin 16.8 13.3 - 04/28/2018 [facility] 17.7 g/dL 2:33 PM [facility] Hematocrit 49.3 40.0 - 04/28/2018 [facility] 53.0 % 2:33 PM [facility] MCV 87 78 - 100 04/28/2018 [facility] fl 2:33 PM [facility] MCH 29.5 26.5 - 04/28/2018 [facility] 33.0 pg 2:33 PM [facility] MCHC 34.1 31.5 - 04/28/2018 [facility] 36.5 g/dL 2:33 PM [facility] RDW 12.9 10.0 - 04/28/2018 [facility] 15.0 % 2:33 PM [facility] Platelet Count 182 150 - 450 04/28/2018 [facility] 10e9/L 2:33 PM [facility] Diff Method Automated 04/28/2018 [facility] Method 2:33 PM [facility] % Neutrophils 75.6 % 04/28/2018 [facility] 2:33 PM [facility] % Lymphocytes 16.9 % 04/28/2018 [facility] 2:33 PM [facility] % Monocytes 6.0 % 04/28/2018 [facility] 2:33 PM [facility] % Eosinophils 0.9 % 04/28/2018 [facility] 2:33 PM [facility] % Basophils 0.3 % 04/28/2018 [facility] 2:33 PM [facility] % Immature 0.3 % 04/28/2018 [facility] Granulocytes 2:33 PM [facility] Nucleated RBCs 0 0 /100 04/28/2018 [facility] 2:33 PM [facility] Absolute 5.8 1.6 - 8.3 04/28/2018 [facility] Neutrophil 10e9/L 2:33 PM [facility] Absolute 1.3 0.8 - 5.3 04/28/2018 [facility] Lymphocytes 10e9/L 2:33 PM [facility] Absolute 0.5 0.0 - 1.3 04/28/2018 [facility] Monocytes 10e9/L 2:33 PM [facility] Absolute 0.1 0.0 - 0.7 04/28/2018 [facility] Eosinophils 10e9/L 2:33 PM [facility] Absolute 0.0 0.0 - 0.2 04/28/2018 [facility] Basophils 10e9/L 2:33 PM [facility] Abs Immature 0.0 0 - 0.4 04/28/2018 [facility] Granulocytes 10e9/L 2:33 PM [facility] Absolute 0.0 04/28/2018 [facility] Nucleated RBC 2:33 PM [facility] Specimen Anatomical Collection Method Collection Time Receive d Time (Source) Location / / Volume Laterality Blood specimen 04/28/2018 2:24 PM 018 2:29 (specimen) BRANCH OPERATION EVALUATION MANAGER PM BRANCH OPERATION EVALUATION MANAGER Randa Umanzor MD LAB - BLOOD ORDERABLES Performing Organization Address City/[facility]/ZIP Code Phon e Number [facility] [address] [place] [address] [facility] Troponin POCT (04/28/2018 2:21 PM BRANCH OPERATION EVALUATION MANAGER) P athologist Signature Troponin I 0.01 0.00 - 0.08 04/28/2018 POINT OF CARE ug/L 2:43 PM BRANCH OPERATION EVALUATION MANAGER TEST, HANDHELD METER Specimen Anatomical Collection Method Collection Time Receive d Time (Source) Location / / Volume Laterality 04/28/2018 2:21 PM 8 2:43 BRANCH OPERATION EVALUATION MANAGER PM BRANCH OPERATION EVALUATION MANAGER Provider Unknown LAB - ENTER/EDIT POCT Performing Organization Address City/[facility]/ZIP Code Phon e Number [facility] [...] (TYLENOL) tablet 500 Given 04/28/2018 4:56 PM BRANCH OPERATION EVALUATION MANAGER 500 mg mg 500 mg, Oral, ONCE, On Sat04/28/18 at 1629, For 1 dose, Maximum acetaminophen dose from all sources = 75 mg/kg/day not to exceed 4 gram digoxin (LANOXIN) tablet 250 mcg Given 04/28/2018 4:59 PM BRANCH OPERATION EVALUATION MANAGER 250 mcg 250 mcg, Oral, ONCE, On Sat04/28/18 at 1619, For 1 dose furosemide (LASIX) half-tab 10 mg Given 04/28/2018 4:58 PM BRANCH OPERATION EVALUATION MANAGER 10 mg 10 mg, Oral, ONCE, On Sat04/28/18 at 1619, For 1 dose lidocaine (viscous) (XYLOCAINE) 2 % 15 mL, Given 04/28/2018 3:55 PM BRANCH OPERATION EVALUATION MANAGER 30 mLs alum & mag hydroxide-simethicone (MYLANTA ES/MAALOX ES) 15 mL GI Cocktail 30 mL, Oral, ONCE, On Sat04/28/18 at 1542, For 1 dose metoprolol succinate (TOPROL-XL) 24 hr tablet Given 4:58 PM BRANCH OPERATION EVALUATION MANAGER 25 mg 25 mg 25 mg, Oral, ONCE, On Sat04/28/18 at 1619, For 1 dose, DO NOT CRUSH. Tablet may be split in half along score line. sildenafil (REVATIO) tablet 20 mg Given 04/28/2018 4:57 PM BRANCH OPERATION EVALUATION MANAGER 20 mg 20 mg, Oral, ONCE, On Sat04/28/18 at 1619, For 1 dose, Avoid taking with a fatty meal. spironolactone (ALDACTONE) tablet 25 mg Given 04/28/2018 4:57 PM BRANCH OPERATION EVALUATION MANAGER 25 mg 25 mg, Oral, ONCE, On Sat04/28/18 at 1619, For 1 dose documented in this encounter Active and Recently Administered Medications Times are shown in BRANCH OPERATION EVALUATION MANAGER. Scheduled Medication Order 04/26/2018 04/27/2018 04/28/2018 acetaminophen (TYLENOL) tablet 500 mg (COMPLETED) 9862 (Given - Provider: Shona Perry RN) 500 [...] dose documented in this encounter Care Teams Reception Specialist Relationship Specialty Start Date End Date Stephen Sauceda PCP - General Pediatrics 03/06/17 06/24/19 [facility] [address] [place] [address] documented as of this encounter
--- OUTSIDE RECORDS SUMMARY | 2022-04-10 10:26 | XMS_ITS | Encounter Summary ---
:2000 Author Organization [place] Address [facility]0 [facility] [place] [address] Care Team Providers Name Role Phone Stephen Sauceda Primary Care Provider Encounter Details Date Type Department Care Team Description 08/26/2018 Telephone [facility] Explorer Nurse, [facility] Ped s Cardiology [facility] [address] [facility] [address] [place], [place] [phone] Social History Tobacco Use Types Packs/Day [...] seek reevaluation for Luke. Cordell Juarez M.D. Choke Reamer of Pediatrics Pediatric and Adult Congenital Cardiology [facility] Pediatric Cardiology Office [phone] Adult Congenital Cardiology Triage and Scheduling [phone] documented in this encounter Plan of Treatment Upcoming Encounters Date Type Specialty Care Team Description 07/27/2022 Ancillary Procedure Cardiology Cordell Juarez MD [address] [facility] [place] [address] (Wo rk) 07/27/2022 Office Visit Cardiology Cordell Juarez MD [address] [facility] [place] [address] (Wo rk) documented as of this encounter Visit Diagnoses Not on filedocumented in this encounter Care Teams Rn Ed Relationship Specialty Start Date End Date Stephen Sauceda PCP - General Pediatrics 03/06/17 06/24/19 [facility] [address] [place] [address] documented as of this encounter
--- OUTSIDE RECORDS SUMMARY | 2022-04-10 10:26 | XMS_ITS | Encounter Summary ---
:2000 Author Organization [place] Address [facility] [place] [address] Care Team Providers Name Role Phone Stephen Sauceda Primary Care Provider Encounter Details Date Type Department Care Team Description 08/26/2018 Telephone [facility] Explorer Tylor Montes De Oca RN Pediatric Specialty Clinic [address] [place], [place] [phone] Social History Tobacco Use Types Packs/Day [...] emergency room on Saturday and Saturday in [place]. They are treating him with rest and pain medications. Jude was seen in follow up yesterday with Dr. Lionel Rubalcava out of [place]. A CT was completed andCarol was provided it I unchanged from Saturday CT. Dr. Juarez notified, she will contact Dr. Rubalcava and recommends frequent imaging and holding coumadinuntil this hematoma is resolved. Jaimie updated and will hold coumadin and await a callback from production underwriter or Dr Juarez for additional plan. Jaimie did state her 24 year old daughter remains at home with Jude, and he will have family with him during recovery. documented in this encounter Plan of Treatment Upcoming Encounters Date Type Specialty Care Team Description 07/27/2022 Ancillary Procedure Cardiology Cordell Juarez MD 98[address] [facility] [place] [address] (Wo rk) 07/27/2022 Office Visit Cardiology Cordell Juarez MD 0880 [facility] MB556 [place] [address] (Wo rk) documented as of this encounter Visit Diagnoses Not on filedocumented in this encounter Care Teams Hospitality Internship Relationship Specialty Start Date End Date Stephen Sauceda PCP - General Pediatrics 03/06/17 06/24/19 [facility] 1999 [place] [address] documented as of this encounter
--- OUTSIDE RECORDS SUMMARY | 2022-04-10 10:27 | XMS_ITS | Encounter Summary ---
:2000 Author Organization [place] [address] [facility] [place] [address] Care Team Providers Name Role Phone KomalStephen white Rudy Primary Care Provider Reason for Visit Reason Onset Date Comments Refill Request 03/27/2017 Encounter Details Date Type Department Care Team Description 03/27/2017 Refill [facility] Pediatric Larry Cordell MD Refill Request Specialty Clinic [address] [address] [address] [facility] [place] [address] [facility] [place] [address] [phone] Social History Tobacco Use Types Packs/Day Years Used Date Smoking Tobacco: Never Comments: none at home Alcohol Use Standard Drinks/Week Comments No 0 (1 standard drink = 0.6 oz pure alcoho l) Sex Assigned at Date Recorded Male 03/09/2019 1:21 PM CDT documented as of this encounter Miscellaneous Notes Telephone Encounter - Delicia Izaguirre RN - 03/27/2017 3:38 PM CDT Spoke with mom and stated there were no refills left at pharmacy. Called [facility] in [place] and both prescriptions were not received by the pharmacy. New prescription sent. 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
--- OUTSIDE RECORDS SUMMARY | 2022-04-10 10:27 | XMS_ITS | Encounter Summary ---
:2000 Author Organization [place] Address [address] [place] [address]. [place] [address] Care Team Providers Name Role Phone KomalStephen mejia Rudy Primary Care Provider Reason for Visit Reason Onset Date Comments Refill Request 06/21/2017 Prior Auth - Medication 06/21/2017 Encounter Details Date Type Department Care Team Description 06/21/[address] [facility] Cordell Juarez MD Refill Request; Prior Explorer Pediatric [address] [place] [address] Aut h - Medication Specialty Clinic [address] [place] [address] Explorer [facility] [address] [place] [address] [facility] [place] [address] Social History Tobacco Use Types [...] a fax notification from an outside Pharmacy: [id number] - [place], [place] - [address] [address] (Phone) Pharmacy Name: Pharmacy #: Pharmacy Fax: S MARKET LEADER documented in this encounter Plan of Treatment Upcoming Encounters Date Type Specialty Care Team Description 07/27/2022 Ancillary Procedure Cardiology Cordell Juarez MD [facility] [address] [address] (Wo rk) 07/27/2022 Office Visit Cardiology Cordell Juarez MD [facility] [address] [address] (Wo rk) documented as of this encounter 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
--- OUTSIDE RECORDS SUMMARY | 2022-04-10 10:27 | XMS_ITS | Encounter Summary ---
:2000 Author Organization [place] Address 2450 [facility] [place] [address] Care Team Providers Name Role Phone Stephen Sauceda Primary Care Provider Reason for Referral - Closed Specialty Diagnoses / Procedures Referred By Contact Refer red To Contact Cardiology Diagnoses Chest pain, unspecified type Cordell Juarez MD Zzrh Cardiac Test Rscc Procedures Zio Patch Holter [address] JG[address] [place], [place] [address] [address] [place] [address] Phone: Fax: Referral ID Status Reason Start Date Expiration Date Visits Requ ested Visits Authorized [id number] Closed 09/15/2017 09/15/2018 1 1 Reason for Visit - Closed Specialty Diagnoses / Procedures Referred By Contact Refer red To Contact Cardiology Diagnoses Chest pain, unspecified type Cordell Juarez MD Zzrh Cardiac Test Rscc Procedures Zio Patch Holter 2450 [facility] VM[facility] [address] [place] [address] 4 [address] [place] [address] Phone: Fax: Referral ID Status Reason Start Date Expiration Date Visits Requ ested Visits Authorized [id number] Closed 09/15/2017 09/15/2018 1 1 Encounter Details Date Type Department Care Team Description 09/16/2017 Hospital Encounter [facility] Larry, Cordell Barajas, Chest pain, Care Center unspecified type [address] [facility] [place] [address] [phone] Social History Tobacco Use Types Packs/Day Years [...] 2450 [facility] MB[address] [place] [address] (Wo rk) 07/27/2022 Office Visit Cardiology Cordell Juarez MD 2450 [facility] [address] [place] [address] (Wo rk) documented as of this encounter Procedures Procedure Name Priority Date/Time Associated Diagnosis Comme nts ZIO PATCH HOLTER Routine 09/16/2017 Chest pain, unspecified Results for this type procedure are i n the results section . documented in this encounter Results Zio Patch Holter (09/16/2017) Narrative RADIANT - 09/16/2017 [facility] [address] [facility] 140 [facility] [address] 09/16/2017 Patient: ??Jude Bills Chart: [id number] : ??2000 Age: ??17 year old Sex: ??male Procedure: ??ZioPatch Monitor. Aeronautical Inspector performing hook-up: ??Charles Matt Cordell Juarez MD CV CARDIAC SERVICES ORDERABL ES Performing Organization Address City/State/ZIP Code Phon e Number RADIANT documented in this encounter Visit Diagnoses Diagnosis Chest pain, unspecified type documented in this encounter Care Teams Slasher Operator Relationship Specialty Start Date End Date Stephen Sauceda PCP - General Pediatrics 03/06/17 06/24/[address] [address] documented as of this encounter
--- OUTSIDE RECORDS SUMMARY | 2022-04-10 10:27 | XMS_ITS | Encounter Summary ---
:2000 Author Organization [place] Address 2450 [facility] [place] [address] Care Team Providers Name Role Phone Stephen Sauceda Primary Care Provider Reason for Visit Reason Comments Medication Refill Encounter Details Date Type Department Care Team Description 03/21/2017 Refill [facility] Cordell Juarez MD Medication Refill Explorer Pediatric [facility] [address] [place] [address] [place] [address] [place] [address] Social History Tobacco Use Types [...] Ancillary Procedure Cardiology Cordell Juarez MD 2450 [facility] [place] [address] (Wo rk) 07/27/2022 Office Visit Cardiology LarryCordell MD 2977 [facility] [place] [address] (Wo rk) documented as of this encounter 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
--- OUTSIDE RECORDS SUMMARY | 2022-04-10 10:27 | XMS_ITS | Encounter Summary ---
:2000 Author Organization [place] Address 2450 [facility] [place] [address] Care Team Providers Name Role Phone Stephen Sauceda Primary Care Provider Reason for Visit Reason Comments Medication Refill Encounter Details Date Type Department Care Team Description 03/23/2017 Refill [facility] Cordell Juarez MD Medication Refill Explorer Pediatric [facility] [address] [place] [address] [place] [address] [place] [address] Social History Tobacco Use Types [...] Ancillary Procedure Cardiology Cordell Juarez MD 2450 [facility]556 [place] [address] (Wo rk) 07/27/2022 Office Visit Cardiology LarryCordell MD 9672 [facility] [place] [address] (Wo rk) documented as of this encounter 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
--- OUTSIDE RECORDS SUMMARY | 2022-04-10 10:27 | XMS_ITS | Encounter Summary ---
:2000 Author Organization [place] Address [facility] [place] [address] Care Team Providers Name Role Phone Stephen Sauceda Primary Care Provider Reason for Visit Reason Comments Medication Refill Encounter Details Date Type Department Care Team Description 05/28/2017 Refill [facility] Cordell Juarez MD Medication Refill Explorer Pediatric [facility] [address] [place] [address] [place] [address] [place] [address] Social History Tobacco Use Types [...] Ancillary Procedure Cardiology Cordell Juarez MD [address] 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
--- OUTSIDE RECORDS SUMMARY | 2022-04-10 10:27 | XMS_ITS | Encounter Summary ---
:2000 Author Organization [place] Address [address] [facility] [place] [address] Care Team Providers Name Role Phone Stephen Sauceda Primary Care Provider Reason for Referral - Closed Specialty Diagnoses / Procedures Referred By Contact Refer red To Contact Cardiology Diagnoses Hypoplastic left heart syndrome Tachycardia Cordell Juarez MD Zz Rh Echocardiography Procedures Echo pediatric congenital [address] [address] [address] [place], [place] [address] [place] [address] Phone: Referral ID Status Reason Start Date Expiration Date Visits Requ ested Visits Authorized [id number] Closed 10/30/2017 10/30/2018 1 1 Reason for Visit - Closed Specialty Diagnoses / Procedures Referred By Contact Refer red To Contact Cardiology Diagnoses Hypoplastic left heart syndrome Tachycardia Cordell Juarez MD Zz Rh Echocardiography Procedures Echo pediatric congenital 2450 [facility] MB[address] [place], [place] [address] [place] [address] Phone: Referral ID Status Reason Start Date Expiration Date Visits Requ ested Visits Authorized [id number] Closed 10/30/2017 10/30/2018 1 1 Encounter Details Date Type Department Care Team Description 10/30/2017 Hospital Encounter Fawn Weissr, Cordell Barajas, Hypoplastic left heart syndrome; Cardiopulmonary Tachycardia [address] [place], [place] [address] [place], [place] [phone] [address] Social History Tobacco Use Types Packs/Day Years [...] Ancillary Procedure Cardiology Cordell Juarez MD [address] [place] [address] (Wo rk) 07/27/2022 Office Visit Cardiology Cordell Juarez MD 2450 [facility]556 [place], [place] [address] ( rk) documented as of this encounter Procedures Procedure Name Priority Date/Time Associated Diagnosis Comme [facility] ECHO PEDIATRIC Routine 10/30/2017 3:11 PM [...] PM CDT Narrative 10/30/2017 5:06 PM CDT [id number]^JAVIER^CORDELL^RYAN ?Study ID: [id number] ?[facility] ?[facility] ?[address] ?[place] [address] ? Pediatric Echocardiogram __ Name: JUDE BILLS [...] Procedure Note Kofi Swan MD - 10/30 [id number] [facility] [id number]^JAVIER^CORDELL^RYAN Study ID: [id number] [facility]'[address] [place] [address] Pediatric Echocardiogram __ Name: JUDE BILLS Study Date: 10/30/2017 02:34 PM Patient Location: [facility] Age: 17 yrs [...] unspecified documented in this encounter Care Teams Diabetes Physician Relationship Specialty Start Date End Date Stephen Sauceda PCP - General Pediatrics 03/06/17 06/24/19 [facility] [address] [place] [address] documented as of this encounter
--- OUTSIDE RECORDS SUMMARY | 2022-04-10 10:27 | XMS_ITS | Encounter Summary ---
:2000 Author Organization [place] Address [facility] [place] [address] Care Team Providers Name Role Phone Stephen Sauceda Primary Care Provider Reason for Visit Reason Onset Date Comments Clinic Care Coordination - Initial 03/06/2017 Encounter Details Date Type Department Care Team Description 03/06/[address] [facility] Kirsten Montes De Oca, [facility] Care Coordination Explorer crew dispatcher - Initial Specialty Clinic [address] [place] [address] Expl[address] [place] [address] Social History Tobacco Use Types Packs/Day [...] Cardiology Cordell Juarez MD 2450 [facility]556 [place] [address] (Wo rk) 07/27/2022 Office Visit Cardiology Cordell Juarez MD 2450 [facility] MB[address] [place] [address] (Wo rk) documented as of this encounter Visit Diagnoses Diagnosis Palpitations - Primary Chest pain Chest pain, unspecified documented in this encounter Care Teams Senior Dynamics Crm Developer Relationship Specialty Start Date End Date Stephen Sauceda PCP - General Pediatrics 03/06/17 06/24/19 [facility] 1999 [place] [address] documented as of this encounter
--- OUTSIDE RECORDS SUMMARY | 2022-04-10 10:27 | XMS_ITS | Encounter Summary ---
:2000 Author Organization [place] Address [facility] [place] [address] Care Team Providers Name Role Phone KomalStephen Primary Care Provider Reason for Visit Reason Onset Date Comments Refill Request 03/12/2017 Encounter Details Date Type Department Care Team Description 03/12/2017 Refill [facility] Pediatric Cordell Juarez MD Refill Request Specialty Clinic [address] [facility] [place] [address] [facility] [place] [address] [phone] Social History Tobacco Use Types Packs/Day Years [...] Ancillary Procedure Cardiology Cordell Juarez MD [address] [place] [address] (Wo rk) 07/27/2022 Office Visit Cardiology Larry, Cordell skelton MD [address] [place] [address] (Wo rk) documented as of this encounter Visit Diagnoses Diagnosis 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 SVT (supraventricular tachycardia) (H) Other specified cardiac dysrhythmias documented in this encounter Care Teams Curve Saw Operator Relationship Specialty Start Date End Date Stephen Sauceda PCP - General Pediatrics 03/06/17 06/24/19 [facility] 1999 [place] [address] documented as of this encounter
--- OUTSIDE RECORDS SUMMARY | 2022-04-10 10:27 | XMS_ITS | Encounter Summary ---
:2000 Author Organization [place] Address 2450 [place] [address] Care Team Providers Name Role Phone Stephen Sauceda Primary Care Provider Reason for Visit (Routine) - Closed Specialty Diagnoses / Procedures Referred By Contact Refer red To Contact Cardiology Diagnoses coming from [facility] Cardiac Test [facility] Procedures ZIOPATCH MONITOR [address] [facility] [address] [place], [place] [address] Phone: Fax: Referral ID Status Reason Start Date Expiration Date Visits Requ ested Visits Authorized [id number] Closed 03/13/2017 03/13/2018 1 1 Encounter Details Date Type Department Care Team Description 03/13/2017 Hospital Encounter [facility] Specialty Care Rudy Juarez MD [facility] 2450 [facility] [address] [place] [facility] [address] [place] [address] [place], [place] [phone] (Wo rk) [address] [phone] Social History Tobacco Use Types Packs/Day Years [...] 07/27/2022 Ancillary Procedure Cardiology Cordell Juarez MD [address] [place] [address] (Wo rk) 07/27/2022 Office Visit Cardiology Cordell Juarez MD [address] [place] [address] (Wo rk) documented as of this encounter Procedures Procedure Name Priority Date/Time Associated Diagnosis Comme nts ZIO PATCH HOLTER Routine 03/13/2017 Tachycardia Results for this procedure are in the resu lts section. documented in this encounter Results Zio Patch Holter (03/13/2017) Narrative RADIANT - 03/13/2017 [facility] [address] [place] [facility] [address] [facility] [address] 03/13/2017 Patient: ??Jude Bills Chart: [id number] : ??2000 Age: ??17 year old Sex: ??male Procedure: ??ZioPatch Monitor. Accountant Tax performing hook-up: ??Charles Matt Cordell Juarez MD CV CARDIAC SERVICES ORDERABL ES Performing Organization Address City/State/[facility] Code Phon e Number RADIANT documented in this encounter Visit Diagnoses Diagnosis Tachycardia Tachycardia, unspecified documented in this encounter Care Teams Inletter Relationship Specialty Start Date End Date Stephen Sauceda PCP - General Pediatrics 03/06/17 06/24/19 [facility] 1999 [place] [address] documented as of this encounter
--- OUTSIDE RECORDS SUMMARY | 2022-04-10 10:27 | XMS_ITS | Encounter Summary ---
:2000 Author Organization [place] Address 2450 [facility] [place] [address] Care Team Providers Name Role Phone Stephen Sauceda Primary Care Provider Reason for Visit Reason Comments Medication Refill Encounter Details Date Type Department Care Team Description 08/01/2017 Refill [facility] Cordell Juarez MD Medication Refill Explorer Pediatric [facility] [address] [place] [address] [place] [address] [place] [address] Social History Tobacco Use Types [...] Ancillary Procedure Cardiology Cordell Juarez MD 2450 [facility] [place] [address] (Wo rk) 07/27/2022 Office Visit Cardiology LarryCordell MD 7080 [facility] [place] [address] (Wo rk) documented as of this encounter 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
--- OUTSIDE RECORDS SUMMARY | 2022-04-10 10:27 | XMS_ITS | Encounter Summary ---
:2000 Author Organization [place] Address [address] [facility] [place] [address] Care Team Providers Name Role Phone Stephen Sauceda Primary Care Provider Reason for Visit Reason Comments RECHECK Tachycardia, chest pain Encounter Details Date Type Department Care Team Description 03/13/2017 Office Visit [facility] Cordell Juarez Tach ycardia (Primary Pediatric Specialty MD Dx) Clinic [address] [place] [address] [phone] Social History Tobacco Use Types Packs/Day Years [...] 03/13/2017 9:15 AM CD T Growth Chart: [facility] (Boys, 2-20 Years) documented in this encounter Progress Notes Cordell Juarez MD - 03/13/2017 9:15 AM CDT Pediatric Cardiology Visit Patient: Jude Bills Date of : 2000 Age: 16 years 7 months Date of Visit: Mar 13, 2017 PCP: Ana Li [place] Dear Dr. Winchester, I had the pleasure of seeing your patient, Jude Bills, in the Pediatric Cardiology Clinic at the [facility] on Mar 13, 2017. 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 He underwent a central shunt, followed by a Fortino procedure and completion of a Fontan procedure at the [facility] in [place]. He had catheter closure of his Fontan fenestration at the [facility] in January 2007. Jude is here today [...] and resolved spontaneously. He was transported by gas line repairer to the ER and evaluated in the [...] no longer playing basketball. 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 He continues on his coumadin, and gets INR's checked in [place] with a goal range of 2-2.5. Prescription [...] FH/SH: Jude and his family live in [place]. His mother is a nurse at [employer]. His height is 1.63 m (5' 4.17) [...] twice daily Average HR was 56 bpm (-693) 779 PVC's (< 1% = rare), no [...] determined post ziopatch Sincerely, Cordell Juarez M.D. Veterinary Manager of Pediatrics Division of Pediatric Cardiology [facility] Addendum: Jude wore a ziopatch from 03/13/17 [...] Ancillary Procedure Cardiology Cordell Juarez MD [address] [place] [address] (Arleen valdes) 07/27/2022 Office Visit Cardiology Cordell Juarez MD [address] [place] [address] (Wo lucio) documented as of this encounter Procedures Procedure Name Priority Date/Time Associated Diagnosis Comme nts [facility] ELECTROCARDIOGRAM REPORT, Routine 03/13/2017 Tachycardi a SUBSEQUENT - ED ONLY documented in this encounter Results Antithrombin III (03/13/2017 11:24 AM CDT) Analysis Performed At [facility] Time Signature Antithrombin III 116 85 - 135 % 03/14/2017 [facility] Chromogenic 10:51 AM CDT [facility] Specimen Anatomical Collection Method Collection Time Receive d Time (Source) Location / / Volume Laterality Blood specimen 03/13/2017 11:24 7 (specimen) AM CDT 12:16 PM CDT Cordell Juarez MD LAB - BLOOD ORDERABLES Performing Organization Address City/State/ZIP Code Phon e Number [facility] [address] [place] [address] [facility] TSH (03/13/2017 11:24 AM CDT) P athologist Signature TSH 3.44 0.40 - 4.00 03/13/2017 [facility] mU/L 12:46 PM CDT [facility] Specimen Anatomical Collection Method Collection Time Receive d Time (Source) Location / / Volume Laterality Blood specimen 03/13/2017 11:24 7 (specimen) AM CDT 12:16 PM CDT Cordell Juarez MD LAB - BLOOD ORDERABLES Performing Organization Address City/State/ZIP Code Phon e Number [facility] [address] [address] [place] [phone] N terminal pro BNP outpatient (03/13/2017 11:24 AM CDT) athologist Signature N-Terminal Pro 121 0 - 240 03/13/2017 [place] Bnp pg/mL 12:46 PM T [facility] Comment: Reference range shown and results [...] Address City/State/ZIP Code Phon e Number M [facility] [address] [place], [place] [address] [facility] [address] [place], [place] [address] [facility] [phone] (ABNORMAL) Comprehensive metabolic panel (03/13/2017 11:24 AM CDT) P athologist Signature Sodium 137 133 - 144 03/13/2017 [place] mmol/L 12:39 PM [facility] Potassium 4.6 3.4 - 5.3 03/13/2017 [place] mmol/L 12:39 PM [facility] Chloride 103 98 - 110 03/13/2017 [place] mmol/L 12:39 PM [facility] Carbon Dioxide 28 20 - 32 03/13/2017 [place] mmol/L 12:39 PM [facility] Anion Gap 6 3 - 14 03/13/2017 [place] mmol/L 12:39 PM [facility] Glucose 83 70 - 99 03/13/2017 [place] mg/dL 12:39 PM [facility] Urea Nitrogen 21 7 - 21 03/13/2017 [place] mg/dL 12:39 PM [facility] Creatinine 0.93 0.50 - 03/13/2017 [place] 1.00 mg/dL 12:39 PM [facility] GFR Estimate >90 >60 03/13/2017 [place] mL/min/1.7 12:[address] Comment: Non GFR Calc GFR Estimate If >90 >60 mL/min/1.7m2 03/13/2017 12:39 PM [facility] Comment: GFR Calc Calcium 9.7 9.1 - 10.3 03/13/2017 12:39 PM [facility] mg/dL [facility] Bilirubin Total 1.4 (H) 0.2 - 1.3 mg/dL 03/13/2017 12:[address] [facility] Albumin 4.6 3.4 - 5.0 g/dL 03/13/2017 12:39 PM [facility] Protein Total 8.1 6.8 - 8.8 g/dL 03/13/2017 12:39 PM [facility] Alkaline Phosphatase 123 65 - 260 U/L 03/13/2017 12:[address] [facility] ALT 24 0 - 50 U/L 03/13/2017 12:[address] [facility] AST 19 0 - 35 U/L 03/13/2017 12:[address] [facility] Specimen Anatomical Collection Method Collection Time Receive d Time (Source) Location / / Volume Laterality Blood specimen 03/13/2017 11:24 7 (specimen) AM CDT 12:16 PM CDT Cordell Juarez MD LAB - BLOOD ORDERABLES Performing Organization Address City/State/ZIP Code Phon e Number [address] [place] [address] [address] [facility] [place] [address] [phone] (ABNORMAL) CBC with platelets differential (03/13/2017 11:24 AM CDT) [facility] Method Time Signature WBC 4.6 4.0 - 03/13/2017 [facility] 11.0 12:20 PM [facility] 10e9/L [facility] RBC Count 5.65 (H) 3.7 - 5.3 03/13/2017 [facility] 10e12/L 12:20 PM [facility] Hemoglobin 16.3 (H) 11.7 - 03/13/2017 [facility] 15.7 g/dL 12:20 PM [facility] Hematocrit 49.2 (H) 35.0 - 03/13/2017 [facility] 47.0 % 12:20 PM [facility] MCV 87 77 - 100 03/13/2017 [facility] fl 12:20 PM [facility] MCH 28.8 26.5 - 03/13/2017 [facility] 33.0 pg 12:20 PM [facility] MCHC 33.1 31.5 - 03/13/2017 [facility] 36.5 g/dL 12:20 PM [facility] RDW 13.2 10.0 - 03/13/2017 [facility] 15.0 % 12:20 PM [facility] Platelet Count 206 150 - 450 03/13/2017 [facility] 10e9/L 12:20 PM [facility] Diff Method Automated 03/13/2017 [facility] Method 12:20 PM [facility] % Neutrophils 54.1 % 03/13/2017 [facility] 12:20 PM [facility] % Lymphocytes 32.0 % 03/13/2017 [facility] 12:20 PM [facility] % Monocytes 10.2 % 03/13/2017 [facility] 12:20 PM [facility] % Eosinophils 2.6 % 03/13/2017 [facility] 12:20 PM [facility] % Basophils 0.9 % 03/13/2017 [facility] 12:20 PM [facility] % Immature 0.2 % 03/13/2017 [facility] Granulocytes 12:20 PM [facility] Nucleated RBCs 0 0 /100 03/13/2017 [facility] 12:20 PM [facility] Absolute 2.5 1.3 - 7.0 03/13/2017 [facility] Neutrophil 10e9/L 12:20 PM [facility] Absolute 1.5 1.0 - 5.8 03/13/2017 [facility] Lymphocytes 10e9/L 12:20 PM [facility] Absolute 0.5 0.0 - 1.3 03/13/2017 [facility] Monocytes 10e9/L 12:20 PM [facility] Absolute 0.1 0.0 - 0.7 03/13/2017 [facility] Eosinophils 10e9/L 12:20 PM [facility] Absolute 0.0 0.0 - 0.2 03/13/2017 [facility] Basophils 10e9/L 12:20 PM [facility] Abs Immature 0.0 0 - 0.4 03/13/2017 [facility] Granulocytes 10e9/L 12:20 PM [facility] Absolute 0.0 03/13/2017 [facility] Nucleated RBC 12:20 PM [facility] Specimen Anatomical Collection Method Collection Time Receive d Time (Source) Location / / Volume Laterality Blood specimen 03/13/2017 11:24 09/27/201 7 (specimen) AM CDT 12:16 PM CDT Cordell Juarez MD LAB - BLOOD ORDERABLES Performing Organization Address City/State/ZIP Code Phon e Number [facility] [address] [place], [place] [address] [facility] [address] [place], [place] [address] [facility] [phone] Echo pediatric congenital (03/13/2017 9:39 AM CDT) Anatomical Region Laterality Modality Echocardiography Specimen (Source) Anatomical Collection Method Collection Time Re ceived Time Location / / Volume Laterality 03/13/2017 9:26 AM CDT Narrative 03/13/2017 10:39 AM CDT [id number]^JAVIER^CORDELL^RYAN ?Study ID: [id number] ?[facility] ?[facility] ?[address] ?[place] [address] ? Pediatric Echocardiogram __ Name: JUDE BILLS [...] note might be different from the original. [id number] [facility] [id number]^JAVIER^CORDELL^RYAN Study ID: [id number] [facility] [place] [address] Pediatric Echocardiogram __ Name: JUDE BILLS Study Date: 03/13/2017 09:26 AM Patient Location: [facility] Age: 17 yrs : 2000 BP: [...] Patch Holter (03/13/2017) Narrative RADIANT - 03/13/2017 [facility] [address] [address] 03/13/2017 Patient: ??Jude Bills Chart: [id number] : ??2000 Age: ??17 year old Sex: ??male Procedure: ??ZioPatch Monitor. Client Services Account Manager performing hook-up: ??Charles Matt Cordell Juarez [...] unspecified documented in this encounter Care Teams Workers Compensation Defense Attorney Relationship Specialty Start Date End Date Stephen Sauceda PCP - General Pediatrics 03/06/17 06/24/19 [facility] [address] [place] [address] documented as of this encounter
--- OUTSIDE RECORDS SUMMARY | 2022-04-10 10:27 | XMS_ITS | Encounter Summary ---
:2000 Author Organization [place] Address [address] [facility] [place] [address] Care Team Providers Name Role Phone Stephen Sauceda Primary Care Provider Reason for Visit Reason Comments Chest Pain Encounter Details Date Type Department Care Team Description 06/21/2017 Emergency [facility] Delfin Agrawal chest pain; Emergency Department MD Bernard Atrial arrhythmia [address] [place] [address] Social History Tobacco Use Types [...] Comments Blood Pressure 122/66 06/21/2017 2:45 PM LICENSED EMBALMER Pulse 61 06/21/2017 1:25 PM LICENSED EMBALMER Temperature 36 ??C (96.8 ??F) 06/21/2017 1:25 PM LICENSED EMBALMER Respiratory Rate 25 06/21/2017 2:45 PM LICENSED EMBALMER Oxygen Saturation 97% 06/21/2017 2:45 PM LICENSED EMBALMER Inhaled Oxygen Concentration - - Weight 61.1 kg (134 lb 11.2 oz) 06/21/2017 1:25 PM LICENSED EMBALMER Height - - Body Mass Index 23.08 05/29/2017 10:04 AM LICENSED EMBALMER Body Mass Index Percentile 69.42 % 06/21/2017 1:25 PM CS T Growth Chart: [facility] (Boys, 2-20 Years) documented in this encounter [...] from the original note were not included. [facility] Consult Note Assessment and [...] distress or palpitations. Per discussion with primary health promotion coordinator there has been concern for atrial arrhythmias.I have been asked to consult on him by the pediatric ED team including Dr Chung. An EKG was done at admission to the emergency room which showed normal sinus rhythm with a long NE interval and no evidence of atrial arrhythmias. [...] him home with outpatient follow-up with primary health promotion coordinator. 5. I discussed his care with the primary health promotion coordinator Dr. juarez and examiner of currency Dr. Osiris Kathleen MD, [facility] biostatistics professor, Pediatric interventional cardiology Director, Pediatric cardiac catheterisation [facility]. Pager: [phone] [email or web address]: Past Medical History: Diagnosis Date ??? 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 Congenital anomalies of spleen Polysplenia ??? Esophageal reflux ??? 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 [...] Yes ??? Unknown/Adopted Other child adopted from [place] at 10mo of age ??? Unknown/Adopted Other [...] PO2V, HCO3V in the last 168 hours. NSED EMBALMER documented in this encounter ED Notes Krystal Wolfe RN - 06/21/2017 1:26 PM CST C/o intermittent chest pain x months. Today pt has had 1 hour of chest pain that is constant. GCS 15 NSED EMBALMER Delfin Agrawal MD - 06/21/2017 1:19 PM [...] Fortino now with Fenestrated Fontan Done at [place] Past Surgical History: Procedure Laterality Date ??? [...] EKG: None Rhythm: Normal sinus Rate: Normal Chatham: Right Chatham Deviation Ectopy: None Conduction: Left bundle branch block (complete) ST Segments/ T Waves: No ST-T wave changes and No acute ischemic changes Q Waves: None Comparison to prior: Unchanged from previous on Clinical Impression: Unchanged from previous EKG Medications - No data to display Old chart from [facility] reviewed, supported history as above. Labs [...] for 1 week and follow-up with primary health promotion coordinator. I discussed the findings and plan with [...] Final diagnoses: Atypical chest pain Lino Hager [facility] Emergency Medicine Resident 06/21/2017 [facility] EMERGENCY DEPARTMENT Patient data was collected by [...] Agrawal M.D. Delfin Agrawal MD 06/21/17 191 NSED EMBALMER documented in this encounter Plan of Treatment Upcoming Encounters Date Type Specialty Care Team Description 07/27/2022 Ancillary Procedure Cardiology Cordell Juarez MD [address] [facility] [address] [place] [address] (Wo rk) 07/27/2022 Office Visit Cardiology Cordell Juarez MD [address] [facility] [address] [place] [address] (Wo rk) Pending Results Name Type Priority Associated Diagnoses Date/Ti me EKG 12 lead - EKG STAT 06/21/2017 1:3 3 PM pediatric LICENSED EMBALMER Zio Patch Holter Cardiac Services STAT Atrial [...] Routine 06/21/2017 1:46 PM Results for this LICENSED EMBALMER procedure are i n the results section. PLATELET FUNCTION ASA STAT 06/21/2017 1:42 PM Atypical ches t pain Results for this LICENSED EMBALMER procedure are i n the results section. TROPONIN I STAT 06/21/2017 1:42 PM Results f or this LICENSED EMBALMER procedure are i n the results section. NT PROBNP INPATIENT Routine 06/21/2017 1:42 PM Re sults for this LICENSED EMBALMER procedure are i n the results section. DIGOXIN LEVEL STAT 06/21/2017 1:42 PM Results for this LICENSED EMBALMER procedure are i n the results section. CRP INFLAMMATION STAT 06/21/2017 1:42 PM Resul ts for this LICENSED EMBALMER procedure are i n the results section. EKG 12 LEAD - STAT 06/21/2017 1:33 PM PEDIATRIC LICENSED EMBALMER HOLTER MONITOR 06/21/2017 12:00 CARDIAC - HIM SCAN AM LICENSED EMBALMER documented in this encounter Results Troponin POCT (06/21/2017 1:46 PM LICENSED EMBALMER) athologist Signature Troponin I 0.03 0.00 - 0.10 06/21/2017 POINT OF CARE ug/L 2:00 PM LICENSED EMBALMER TEST, HANDHELD METER Specimen Anatomical Collection Method Collection Time Receive d Time (Source) Location / / Volume Laterality 06/21/2017 1:46 PM 8 2:00 LICENSED EMBALMER PM LICENSED EMBALMER Delfin Agrawal MD LAB - ENTER/EDIT POCT Performing Organization Address City/State/ZIP Code Phon e Number [facility] POINT OF CARE TEST, HANDHELD METER POINT OF CARE TEST, HANDHELD METER (ABNORMAL) Nt probnp inpatient (06/21/2017 1:42 PM LICENSED EMBALMER) P athologist Signature N-Terminal Pro 395 (H) 0 - 240 06/21/2017 [place] BNP Inpatient pg/mL 2:42 PM LICENSED EMBALMER [facility] Comment: Reference range shown and results [...] Volume Laterality 06/21/2017 1:42 PM 8 2:11 LICENSED EMBALMER PM LICENSED EMBALMER Lino Hager MD LAB - BLOOD ORDERABLES Performing Organization Address City/State/ZIP Code Phon e Number [facility] [address] [place] [address] [phone] [facility] [address] [place] [place] [address], [facility] [phone] Troponin I (06/21/2017 1:42 PM LICENSED EMBALMER) P athologist Signature Troponin I ES 0.045 0.000 - 06/21/2017 [facility] 0.045 ug/L 2:41 PM LICENSED EMBALMER [facility] Comment: The 99th percentile for upper reference range is 0.045 ug/L. ??Troponin values in the range of 0.045 - 0.120 ug/L may b e associated with risks of adverse clinical events. Specimen Anatomical Collection Method Collection Time Receive d Time (Source) Location / / Volume Laterality Blood specimen 06/21/2017 1:42 PM 018 2:11 (specimen) LICENSED EMBALMER PM LICENSED EMBALMER Lino Hager MD LAB - BLOOD ORDERABLES Performing Organization Address City/[facility]/ZIP Code Phon e Number [place] [address] [place] [address] [facility] CRP inflammation (06/21/2017 1:42 PM LICENSED EMBALMER) Analysis Performed At Patho logist Time Signature CRP Inflammation <2.9 0.0 - 8.0 06/21/2017 [place] O F mg/L 2:40 PM LICENSED EMBALMER [facility] Specimen Anatomical Collection Method Collection Time Receive d Time (Source) Location / / Volume Laterality Blood specimen 06/21/2017 1:42 PM 018 2:11 (specimen) LICENSED EMBALMER PM LICENSED EMBALMER Lino Hager MD LAB - BLOOD ORDERABLES Performing Organization Address City/State/ZIP Code Phon e Number [address] [address] [facility] Digoxin level (06/21/2017 1:42 PM LICENSED EMBALMER) P athologist Signature Digoxin Level 0.7 0.5 - 2.0 06/21/2017 [facility] ug/L 2:52 PM [facility] Specimen Anatomical Collection Method Collection Time Receive d Time (Source) Location / / Volume Laterality Blood specimen 06/21/2017 1:42 PM 018 2:11 (specimen) LICENSED EMBALMER PM LICENSED EMBALMER Lino Hager MD LAB - BLOOD ORDERABLES Performing Organization Address City/State/ZIP Code Phon e Number [address] [address] [facility] Platelet Function ASA (06/21/2017 1:42 PM LICENSED EMBALMER) Patholo gist Method Time Signature Platelet Canceled, ARU 06/21/2017 [facility] Function ASA Test 3:06 PM LICENSED EMBALMER [facility] Comment: Unsatisfactory specimen - collected in w tom container NOTIFIED KIRAN WHITLEYRN AT 1505 ON 06.21.17 BY 2080 Specimen Anatomical Collection Method Collection Time Receive d Time (Source) Location / / Volume Laterality Blood specimen 06/21/2017 1:42 PM 018 2:11 (specimen) LICENSED EMBALMER PM LICENSED EMBALMER Lino Hager MD LAB - BLOOD ORDERABLES Performing Organization Address City/[facility]/ZIP Code Phon e Number [address] [address] [facility] HOLTER MONITOR CARDIAC - HIM SCAN (06/21/2017 12:00 AM LICENSED EMBALMER) Specimen (Source) Anatomical Location Collection Method / [...] Recently Administered Medications Times are shown in LICENSED EMBALMER. Scheduled Medication Order 06/19/2017 06/20/2017 06/21/2017 sodium [...] size. documented in this encounter Care Teams Extrusion Process Operator Relationship Specialty Start Date End Date Stephen Sauceda PCP - General Pediatrics 03/06/17 06/24/19 [facility] [address] [place] [address] documented as of this encounter
--- OUTSIDE RECORDS SUMMARY | 2022-04-10 10:27 | XMS_ITS | Encounter Summary ---
:2000 Author Organization [place] Address [address] [place] [address] Care Team Providers Name Role Phone Stephen Sauceda Primary Care Provider Reason for Visit (Routine) - Closed Specialty Diagnoses / Procedures Referred By Contact Refer red To Contact Cardiology Diagnoses echo at [address] [place] [address], [facility] Zz Rh Echocardiography Procedures [facility] PEDIATRIC CONGENITAL [address] [place], [place] [address] Phone: Referral ID Status Reason Start Date Expiration Date Visits Requ ested Visits Authorized [id number] Closed 05/29/2017 05/29/2018 1 1 Encounter Details Date Type Department Care Team Description 05/29/2017 [facility] Tachycardia Cardiopulmonary [address] [facility] [address] [place] [address] [phone] Social History Tobacco Use Types Packs/Day Years [...] Ancillary Procedure Cardiology Javier, Cordell Barajas MD [address] [address] [place] [address] (Wo rk) 07/27/2022 Office Visit Cardiology Cordell Juarez MD [address] [place] [address] (Wo rk) documented as of this encounter Procedures Procedure Name Priority Date/Time Associated Diagnosis Comme nts ECHO PEDIATRIC Routine 05/29/2017 10:38 Tachycardia Results f or this CONGENITAL AM DOCUMENT CONTROL CLERK procedure are i n the results section. documented in this encounter Results Echo pediatric congenital (05/29/2017 10:38 AM DOCUMENT CONTROL CLERK) Anatomical Region Laterality Modality Echocardiography Specimen (Source) Anatomical Collection Method Collection Time Re ceived Time Location / / Volume Laterality 05/29/2017 10:10 AM DOCUMENT CONTROL CLERK Narrative 05/29/2017 12:11 PM DOCUMENT CONTROL CLERK [id number]^JAVIER^CORDELL^RYAN ?Study ID: [id number] ?[facility] ?[facility] ?[address] ?[place] [address] ? Pediatric Echocardiogram __ Name: JUDE BILLS Study Date: 05/29/2017 10:10 AM ? Patient Location: [facility] ? Age: 17 yrs : 2000 [...] Procedure Note Artemio Silva MD - 05/29/2017 [id number] [facility] [id number]^JAVIER^CORDELL^RYAN Study ID: [id number] [address] [place] [address] Pediatric Echocardiogram __ Name: JUDE BILLS Study Date: 05/29/2017 10:10 AM Patient Location: [facility] Age: 17 yrs : 2000 BP: [...] unspecified documented in this encounter Care Teams Benefits Manager Relationship Specialty Start Date End Date Stephen Sauceda PCP - General Pediatrics 03/06/17 06/24/19 [facility] [address] [place] [address] documented as of this encounter
--- OUTSIDE RECORDS SUMMARY | 2022-04-10 10:27 | XMS_ITS | Encounter Summary ---
:2000 Author Organization [place] Address 2450 [facility] [place] [address] Care Team Providers Name Role Phone Komal Stephen Grant Primary Care Provider Encounter Details Date Type Department Care Team Description 03/13/[address] [facility] LarryCordell MD [facility] 2450 [facility] [address] [facility] MB[address] [place] [address] [phone] Social History Tobacco Use Types Packs/Day Years [...] Ancillary Procedure Cardiology Cordell Juarez MD [address] [phone] ( rk) 07/27/2022 Office Visit Cardiology Cordell Juarez MD 4730 [facility] [place], [place] [address] (Arleen rk) documented as of this encounter [...] III 116 85 - 135 % [facility] Specimen Anatomical Collection Method Collection Time Receive d Time (Source) Location / / Volume Laterality Blood specimen 03/13/2017 11:24 7 (specimen) AM CDT 12:16 PM CDT Cordell Juarez MD LAB - BLOOD ORDERABLES Performing Organization Address City/State/ZIP Code Phon e Number [facility] [address] [place] [address] [facility] TSH (03/13/2017 11:24 AM CDT) athologist Signature TSH 3.44 0.40 - 4.00 03/13/2017 [facility] mU/L 12:46 PM T [facility] Specimen Anatomical Collection Method Collection Time Receive d Time (Source) Location / / Volume Laterality Blood specimen 03/13/2017 11:24 7 (specimen) AM CDT 12:16 PM CDT Cordell Juarez MD LAB - BLOOD ORDERABLES Performing Organization Address City/State/ZIP Code Phon e Number [facility] [address] [place] [address] [facility] [address] [phone] N terminal pro BNP outpatient (03/13/2017 11:24 AM CDT) athologist Signature N-Terminal Pro 121 0 - 240 03/13/2017 [place] Bnp pg/mL 12:46 PM T [facility] Comment: Reference range shown and results flagge [...] Address City/State/ZIP Code Phon e Number M [facility] [address] [address] [facility] [address] [address] [facility] [phone] (ABNORMAL) Comprehensive metabolic panel (03/13/2017 11:24 AM CDT) athologist Signature Sodium 137 133 - 144 03/13/2017 [place] mmol/L 12:39 PM [facility] Potassium 4.6 3.4 - 5.3 03/13/2017 [place] mmol/L 12:39 PM [facility] Chloride 103 98 - 110 03/13/2017 [place] mmol/L 12:39 PM [facility] Carbon Dioxide 28 20 - 32 03/13/2017 [place] mmol/L 12:39 PM [facility] Anion Gap 6 3 - 14 03/13/2017 [place] mmol/L 12:39 PM [facility] Glucose 83 70 - 99 03/13/2017 [place] mg/dL 12:39 PM [facility] Urea Nitrogen 21 7 - 21 03/13/2017 [place] mg/dL 12:39 PM [facility] Creatinine 0.93 0.50 - 03/13/2017 [facility] 1.00 mg/dL 12:39 PM [facility] GFR Estimate >90 >60 03/13/2017 [place] mL/min/1.7 12:[address] Comment: Non GFR Calc GFR Estimate If >90 >60 mL/min/1.7m2 03/13/2017 12:39 PM [facility] Comment: GFR Calc Calcium 9.7 9.1 - 10.3 03/13/2017 12:39 PM [facility] mg/dL [facility] Bilirubin Total 1.4 (H) 0.2 - 1.3 mg/dL 03/13/2017 12:39 P M [facility] Albumin 4.6 3.4 - 5.0 g/dL 03/13/2017 12:39 PM [facility] Protein Total 8.1 6.8 - 8.8 g/dL 03/13/2017 12:39 PM [facility] Alkaline Phosphatase 123 65 - 260 U/L 03/13/2017 12:39 PM [facility] ALT 24 0 - 50 U/L 03/13/2017 12:39 PM [facility] AST 19 0 - 35 U/L 03/13/2017 12:39 PM [facility] Specimen Anatomical Collection Method Collection Time Receive d Time (Source) Location / / Volume Laterality Blood specimen 03/13/2017 11:24 7 (specimen) AM CDT 12:16 PM CDT Cordell Juarez MD LAB - BLOOD ORDERABLES Performing Organization Address City/State/ZIP Code Phon e Number [place] [address] [address] [facility] [place] [address] [phone] (ABNORMAL) CBC with platelets differential (03/13/2017 11:24 AM CDT) [facility] Method Time Signature WBC 4.6 4.0 - 03/13/2017 [facility] 11.0 12:20 PM [facility] 10e9/L [facility] RBC Count 5.65 (H) 3.7 - 5.3 03/13/2017 [place] 10e12/L 12:20 PM [facility] Hemoglobin 16.3 (H) 11.7 - 03/13/2017 [facility] 15.7 g/dL 12:20 PM [facility] Hematocrit 49.2 (H) 35.0 - 03/13/2017 [place] 47.0 % 12:20 PM [facility] MCV 87 77 - 100 03/13/2017 [facility] fl 12:20 PM [facility] MCH 28.8 26.5 - 03/13/2017 [facility] 33.0 pg 12:20 PM [facility] MCHC 33.1 31.5 - 03/13/2017 [facility] 36.5 g/dL 12:20 PM [facility] RDW 13.2 10.0 - 03/13/2017 [facility] 15.0 % 12:20 PM [facility] Platelet Count 206 150 - 450 03/13/2017 [facility] 10e9/L 12:20 PM [facility] Diff Method Automated 03/13/2017 [facility] Method 12:20 PM [facility] % Neutrophils 54.1 % 03/13/2017 [facility] 12:20 PM [facility] % Lymphocytes 32.0 % 03/13/2017 [facility] 12:20 [facility] % Monocytes 10.2 % 03/13/2017 [facility] 12:20 PM [facility] % Eosinophils 2.6 % 03/13/2017 [facility] 12:20 PM [facility] % Basophils 0.9 % 03/13/2017 [facility] 12:20 PM [facility] % Immature 0.2 % 03/13/2017 [facility] Granulocytes 12:20 PM [facility] Nucleated RBCs 0 0 /100 03/13/2017 [facility] 12:20 PM [facility] Absolute 2.5 1.3 - 7.0 03/13/2017 [facility] Neutrophil 10e9/L 12:20 PM [facility] Absolute 1.5 1.0 - 5.8 03/13/2017 [facility] Lymphocytes 10e9/L 12:20 PM [facility] Absolute 0.5 0.0 - 1.3 03/13/2017 [facility] Monocytes 10e9/L 12:20 PM [facility] Absolute 0.1 0.0 - 0.7 03/13/2017 [facility] Eosinophils 10e9/L 12:20 [facility] Absolute 0.0 0.0 - 0.2 03/13/2017 [facility] Basophils 10e9/L 12:20 PM [facility] Abs Immature 0.0 0 - 0.4 03/13/2017 [facility] Granulocytes 10e9/L 12:20 PM [facility] Absolute 0.0 03/13/2017 [place] Nucleated RBC 12:20 PM [facility] Specimen Anatomical Collection Method Collection Time Receive d Time (Source) Location / / Volume Laterality Blood specimen 03/13/2017 11:24 7 (specimen) AM CDT 12:16 PM CDT Cordell Juarez MD LAB - BLOOD ORDERABLES Performing Organization Address City/State/ZIP Code Phon e Number [facility] [address] [address] [place] [address] [phone] documented in this encounter Visit Diagnoses Diagnosis Tachycardia Tachycardia, unspecified documented in this encounter Care Teams Fire Coordinator Relationship Specialty Start Date End Date Stephen Sauceda PCP - General Pediatrics 03/06/17 06/24/19 [facility] [address] [place] [address] documented as of this encounter
--- OUTSIDE RECORDS SUMMARY | 2022-04-10 10:27 | XMS_ITS | Encounter Summary ---
:2000 Author Organization [place] Address [address] [place] [address] Care Team Providers Name Role Phone Unavailable Primary Care Provider Unavailable Reason for Visit Reason Comments Heart Problem Tachycardia Encounter Details Date Type Department Care Team Description 09/14/2016 Office Visit [facility] Marion Figueroa Atrial tachycardia (H) (Primary Dx); Health Pediatric MD Andra Sick sinus syndrome (H) Specialty Clinic [address] [place] [address] [place], [place] [phone] (Wo rk) [address] [phone] Social History Tobacco Use Types Packs/Day Years [...] 09/14/2016 11:22 AM C DT Growth Chart: [facility] (Boys, 2-20 Years) documented in this encounter Patient Instructions Patient InstructionsJulio Hu CMA - 09/14/2016 11:30 AM CDT [facility] [place] [place] [facility] [phone] Nu Hernandez RN Quality Associate: [phone] After Hours Emergency: [phone]. Ask for the on-call doctor for the specialty you are calling for be paged. Prescription Renewals: Your pharmacy must fax requests to [phone]. Please allow 2-3 days for prescriptions to be authorized. If your physician has ordered an x-ray or MRI, you may schedule this test by calling [facility] Radiologyin [place] at [phone]. documented in this encounter Progress Notes Marion Figueroa MD - 09/14/2016 11:30 AM CDT Your patient, Jude Bills, was seen in the Pediatric Electrophysiology/Cardiology at the [facility] on Sep 14, 2016. [...] of a Fontan procedure at the [facility] in damper fitter. He had catheter closure of his Fontan fenestration at the [facility] in January 2007. Jude was last [...] 4 %ile based on CDC 2-20 Years xrqwzon-hgy-roa data using vitals from 09/14/2016.. Weight is 59.1 kg (actual weight), 34 %ile based on CDC 2-20 Years ckqkpa-vsf-ahv data using vitals from 09/14/2016.. BP 103/62 [...] 43 BPM. The QTC was 358 msec. MS = 170 msec Holter 09/10/2016 48 hour: SR with HR = 34 - 103 BPM, average HR = 56 BPM. There were 779 PVCs amd 1 PAC. There were no sustained arrhythmias or pauses. Diagnoses: 1. Heterotaxy Syndrome 2. 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 [...] Electrophysiology Pediatric Cardiology & Critical Care Medicine [facility] 555 [facility] [address] FAX [phone] CC JOSELIN ROJAS Copy to patient JOSEPH BILLS ROB[place] [address] [address] [facility] [address] documented in this encounter Nursing Notes Julio [...] Ancillary Procedure Cardiology Cordell Juarez MD [address] [place] [address] (Wo rk) 07/27/2022 Office Visit Cardiology Cordell Juarez MD [address] [place] [address] (Wo rk) documented as of this encounter Procedures Procedure Name Priority Date/Time Associated Diagnosis Comme nts EKG 12-LEAD Routine 09/14/2016 10:32 AM Atrial tachycardia Re sults for this COMPLETE W/READ - CDT (H) procedure are in CLINICS the results section. documented in this encounter Results EKG 12-lead complete w/read - Clinics (09/14/2016 10:32 AM CDT) [facility] gist Method Time Signature Interpretation ECG Click [...]
--- OUTSIDE RECORDS SUMMARY | 2022-04-10 10:27 | XMS_ITS | Encounter Summary ---
:2000 Author Organization [place] Address 2450 [facility] [place] [address] Care Team Providers Name Role Phone Stephen Sauceda Rudy Primary Care Provider Reason for Visit Reason Comments RECHECK here for Zio Results and f/u for chest pain Encounter Details Date Type Department Care Team Description 05/29/2017 Office Visit [facility] Cordell Juarez, Tach ycardia (Primary Dx); Pediatric Specialty Single ventricle with heterotaxia syndro [facility] [address] [place] [address] [address] [facility] [address] [place] [address] [phone] Social History Tobacco Use Types Packs/Day Years Used Date Smoking Tobacco: Never Comments: none at home Alcohol Use Standard Drinks/Week Comments No 0 (1 standard drink = 0.6 oz pure alcoho l) Sex Assigned at Date Recorded Male 03/09/2019 1:21 PM CDT documented as of this encounter Last Filed Vital Signs Vital Sign Reading Time Taken Comments Blood Pressure 93/54 05/29/2017 10:04 AM PICTURE ENLARGER Pulse 54 05/29/2017 10:04 AM PICTURE ENLARGER Temperature - - Respiratory Rate 24 05/29/2017 10:04 AM PICTURE ENLARGER Oxygen Saturation 93% 05/29/2017 10:04 AM PICTURE ENLARGER Inhaled Oxygen Concentration - - Weight 57.9 kg (127 lb 10.3 oz) 05/29/2017 10:04 AM PICTURE ENLARGER Height 162.7 cm (5' 4.06) 05/29/2017 10:04 AM PICTURE ENLARGER Body Mass Index 21.87 05/29/2017 10:04 AM PICTURE ENLARGER Body Mass Index Percentile 55.95 % 05/29/2017 10:04 AM PICTURE ENLARGER Growth Chart: [facility] (Boys, 2-20 Years) documented in this encounter Progress Notes Cordell Juarez MD - 05/29/2017 10:00 AM CST Pediatric Cardiology Visit Patient: Jude Bills Date of : 2000 Age: 16 years 7 months Date of Visit: May 29, 2017 PCP: Ana Li [place] Dear Dr. Winchester, I had the pleasure of seeing your patient, Jude Bills, in the Pediatric Cardiology Clinic at the [facility] on May 29, 2017. 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 He underwent a central shunt, followed by a Fortino procedure and completion of a Fontan procedure at the [facility] in scaffold [place]. He had catheter closure of his Fontan fenestration at the [facility] in January 2007. Jude is here today for a follow up visit after evaluation for ongoing episodes of chest pain and irregular heart rate. We stopped his coumadin at his last visit dueto a calf injury with hematoma. SInce his last visit Jude has had fecurrent chest pain and a feelingof irregular rhythm. He was evaluated in the [place] ER and stable VS and ECG which [...] no longer playing basketball. 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 He is now off his [...] FH/SH: Jude and his family live in [place]. His mother is a nurse at [employer]. His height is 1.627 m (5' 4.06) [...] twice daily Average HR was 56 bpm ([id number]) 779 PVC's (< 1% = rare), no [...] with repeat one week zio. Sincerely, Cordell uJarez M.D. [employer] Tester of Pediatrics Division of Pediatric Cardiology [facility] Addendum: Jude wore a ziopatch from [...] were associated with sinus rhythm. 04/10/17 JLL URE ENLARGER documented in this encounter Nursing Notes Delicia [...] Face time: 10 minutes Delicia Izaguirre RN URE ENLARGER documented in this encounter Plan of Treatment Upcoming Encounters Date Type Specialty Care Team Description 07/27/2022 Ancillary Procedure Cardiology Cordell Juarez MD 2450 [facility] [address] [place], [place] [phone] (Wo rk) 07/27/2022 Office Visit Cardiology Cordell Juarez MD 2450 [facility] [address] [place], [place] [address] (Wo rk) documented as of this encounter Procedures Procedure Name Priority Date/Time Associated Diagnosis Comme [facility] ELECTROCARDIOGRAM Routine 05/29/2017 Tachycardia Resul ts for this REPORT, SUBSEQUENT - ED proc edure are in ONLY the results section. documented in this encounter Results Echo pediatric congenital (05/29/2017 10:38 AM PICTURE ENLARGER) Anatomical Region Laterality Modality Echocardiography Specimen (Source) Anatomical Collection Method Collection Time Re ceived Time Location / / Volume Laterality 05/29/2017 10:10 AM PICTURE ENLARGER Narrative 05/29/2017 12:11 PM PICTURE ENLARGER [id number]^JAVIER^CORDELL^RYAN ?Study ID: [id number] ?[facility] ?[facility] ?[address] ?[place], [place] [address] ? Pediatric Echocardiogram __ Name: JUDE BILLS [...] Procedure Note Artemio Silva MD - 05/29/2017 [id number] [facility] [id number]^JAVIER^CORDELL^RYAN Study ID: [id number] [facility] [address] [address] Pediatric Echocardiogram __ Name: JUDE BILLS Study Date: 05/29/2017 10:10 AM Patient Location: [facility] [...] unspecified documented in this encounter Care Teams Automobile Racer Relationship Specialty Start Date End Date Stephen Sauceda PCP - General Pediatrics 03/06/17 06/24/19 [facility] [address] [place] [address] documented as of this encounter
--- OUTSIDE RECORDS SUMMARY | 2022-04-10 10:27 | XMS_ITS | Encounter Summary ---
:2000 Author Organization [place] Address [facility] [place] [address] Care Team Providers Name Role Phone Stephen Sauceda Primary Care Provider Reason for Visit Reason Comments Chest Pain Encounter Details Date Type Department Care Team Description 03/06/2017 Emergency [facility] Arelis [place] Che st pain, unspecified type; [facility] Emergency MD Hypoplastic left heart syndrome Department [facility] [address] [place] [address] [phone] (Wo rk) Social History Tobacco Use Types [...] 03/06/2017 4:05 PM CD T Growth Chart: [facility] (Boys, 2-20 Years) documented in this encounter [...] Fortino now with Fenestrated Fontan Done at [place] Past Surgical History: Procedure Laterality Date ??? [...] No data to display Old chart from [facility] reviewed, supported history as above. Critical care time: none Assessments & Plan (with Medical Decision Making) Chest pain: W/ hx of hypoplastic L heart. Differential wide and includes ACS, heart failure, thrombosis, infection. Patient overall very well appearing, low concern for more serious acute etiology at this time. EKG unchanged from previous. CXR without PNA. Discussed with pump house operator, plan for outpatient follow up with zeopatch, to which patient and mother are amenable Plan: - EKG, CXR - Zeopatch outpatient I have reviewed the nursing notes. I have reviewed the findings, diagnosis, plan and need for follow up with the patient. New Prescriptions No medications on file Final diagnoses: Chest pain, unspecified type 03/06/2017 [facility] EMERGENCY DEPARTMENT Patient data was collected [...] Emergency Medicine Attending Physician Arelis [place] MD 03/06/173 documented in this encounter Plan of Treatment Upcoming Encounters Date Type Specialty Care Team Description 07/27/2022 Ancillary Procedure Cardiology Cordell Juarez MD [address] [facility] [place] [address] (Wo rk) 07/27/2022 Office Visit Cardiology Cordell Juarez MD 2450 [facility] [place] [address] (Wo rk) documented as of this encounter [...] lead - pediatric (03/06/2017 3:47 PM CDT) [facility] gist Method Time Signature Interpretation ECG [...] syndrome documented in this encounter Care Teams Bowling Teacher Relationship Specialty Start Date End Date Stephen Sauceda PCP - General Pediatrics 03/06/17 06/24/19 [facility] [address] [place], [place] [address] documented as of this encounter
--- OUTSIDE RECORDS SUMMARY | 2022-04-10 10:27 | XMS_ITS | Encounter Summary ---
:2000 Author Organization [place] Address [facility] [place] [address] Care Team Providers Name Role Phone Stephen Sauceda Primary Care Provider Reason for Visit Reason Onset Date Comments Refill Request 09/25/2017 Encounter Details Date Type Department Care Team Description 09/25/2017 Refill [facility] Cordell Juarez MD Refill Request Pediatric Specialty Clinic [address] [place] [address] [address] [facility] [place] [phone] Social History Tobacco Use Types Packs/Day [...] Ancillary Procedure Cardiology Cordell Juarez MD [address] [place] [address] (Wo rk) 07/27/2022 Office Visit Cardiology LarryCordell blum MD [address] [place] [address] (Wo rk) documented as of this encounter 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 Care Teams Socket Welder Helper Relationship Specialty Start Date End Date Stephen Sauceda PCP - General Pediatrics 03/06/17 06/24/19 [facility] [address] [place] [address] documented as of this encounter
--- OUTSIDE RECORDS SUMMARY | 2022-04-10 10:27 | XMS_ITS | Encounter Summary ---
:2000 Author Organization [place] Address [address] [facility] [place] [address] Care Team Providers Name Role Phone Stephen Sauceda Primary Care Provider Reason for Visit (Routine) - Closed Specialty Diagnoses / Procedures Referred By Contact Refer red To Contact Cardiology Procedures Zz Rh Echocardiography [facility] [address] [place], [place] [address] Phone: Referral ID Status Reason Start Date Expiration Date Visits Requ ested Visits Authorized [id number] Closed 03/13/2017 03/13/2018 1 1 Encounter Details Date Type Department Care Team Description 03/13/2017 Hospital Encounter [facility] Cordell Juarez MD Tachycardia Cardiopulmonary [address] [facility] [address] [place] [address] [phone] Social History Tobacco Use Types Packs/Day Years [...] 07/27/2022 Ancillary Procedure Cardiology Cordell Juarez MD [facility] YAMILET [address] [address] (Wo rk) 07/27/2022 Office Visit Cardiology Cordell Juarez MD [facility] [facility] [address] [place], [place] [address] (Wo rk) documented as of this encounter [...] AM CDT Narrative 03/13/2017 10:39 AM CDT [id number]^JAVIER^CORDELL^RYAN ?Study ID: [id number] ?[facility] ?[facility] ?[address] ?[place] [address] ? Pediatric Echocardiogram __ Name: JUDE BILLS Study Date: 03/13/2017 09:26 AM ? [facility] ? Age: 17 yrs : 2000 ? [...] note might be different from the original. [id number] [facility] [id number]^JAVIER^CORDELL^RYAN Study ID: [id number] [address] [address] Pediatric Echocardiogram __ Name: JUDE BILLS Study Date: 03/13/2017 09:26 AM Patient Location: [facility] Age: 17 yrs : 2000 BP: 108/68 [...] unspecified documented in this encounter Care Teams Social Problems Specialist Relationship Specialty Start Date End Date Stephen Sauceda PCP - General Pediatrics 03/06/17 06/24/[address] [facility] [address] [place] [address] documented as of this encounter
--- OUTSIDE RECORDS SUMMARY | 2022-04-10 10:27 | XMS_ITS | Encounter Summary ---
:2000 Author Organization [place] Address 2450 [facility] [place] [address] Care Team Providers Name Role Phone Stephen Sauceda Primary Care Provider Reason for Visit Reason Comments Medication Refill Encounter Details Date Type Department Care Team Description 03/12/2017 Refill [facility] Cordell Juarez MD Medication Refill [facility] [address] [place] [address] [place] [address] [place] [address] Social History Tobacco Use Types [...] Ancillary Procedure Cardiology Cordell Juarez MD 2450 [facility] [place] [address] (Wo rk) 07/27/2022 Office Visit Cardiology LarryCordell MD [address] [facility] [place] [address] (Wo rk) documented as of this encounter 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 Care Teams Director Digital Sales Relationship Specialty Start Date End Date Stephen Sauceda PCP - General Pediatrics 03/06/17 06/24/19 [facility] [address] [place] [address] documented as of this encounter
--- OUTSIDE RECORDS SUMMARY | 2022-04-10 10:27 | XMS_ITS | Encounter Summary ---
:2000 Author Organization [place] Address [address] [facility] [address] Care Team Providers Name Role Phone KomalStephen Primary Care Provider Reason for Referral - Closed Specialty Diagnoses / Procedures Referred By Contact Refer red To Contact Cardiology Diagnoses Chest pain, unspecified type Cordell Juarez MD Zzrh Cardiac Test [facility] Procedures Zio Patch Holter [address] [facility] YB767 [address] [address] [address] [place] [address] Phone: Fax: Referral ID Status Reason Start Date Expiration Date Visits Requ ested Visits Authorized [id number] Closed 09/15/2017 09/15/2018 1 1 BLAST CARVER Reason for Visit Reason Comments RECHECK Tachycardia Encounter Details Date Type Department Care Team Description 08/14/[address] [facility] Cordell Juarez Ches t pain, Pediatric Specialty unspecified type Clinic [place] [address] [facility] (Primary Dx) [address] [facility] [address] [place] [id number] [phone] Social History Tobacco Use Types Packs/Day Years Used Date Smoking Tobacco: Never Comments: none at home Alcohol Use Standard Drinks/Week Comments No 0 (1 standard drink = 0.6 oz pure alcoho l) Sex Assigned at Date Recorded Male 03/09/2019 1:21 PM CDT documented as of this encounter Last Filed Vital Signs Vital Sign Reading Time Taken Comments Blood Pressure 103/61 08/14/2017 9:08 AM SANDBLAST CARVER Pulse 66 08/14/2017 9:08 AM SANDBLAST CARVER Temperature - - Respiratory Rate 18 08/14/2017 9:08 AM SANDBLAST CARVER Oxygen Saturation 95% 08/14/2017 9:08 AM SANDBLAST CARVER Inhaled Oxygen Concentration - - Weight 58.8 kg (129 lb 10.1 oz) 08/14/2017 9:08 AM SANDBLAST CARVER Height 163.1 cm (5' 4.21) 08/14/2017 9:08 AM SANDBLAST CARVER Body Mass Index 22.1 08/14/2017 9:08 AM SANDBLAST CARVER Body Mass Index Percentile 57.09 % 08/14/2017 9:08 AM CS T Growth Chart: [facility] (Boys, 2-20 Years) documented in this encounter Patient Instructions Patient InstructionsLohr, Cordell Barajas MD - 08/14/2017 9:15 AM CST You were seen today in the Pediatric Cardiology Clinic at [facility] Cardiology [...] about today's visit, please call our clinic [phone] For after hours urgent needs call [phone] and ask to speak to the Pediatric Cardiology Physician affirmative action officer. For emergencies call 911. BLAST CARVER documented in this encounter Progress Notes Cordell Juarez MD - 08/14/2017 9:15 AM CST Pediatric Cardiology Visit Patient: Jude Bills Date of : 2000 Age: 16 years 7 months Date of Visit: Aug 14, 2017 PCP: Ana Li [place] Dear Dr. Winchester, I had the pleasure of seeing your patient, Jude Bills, in the Pediatric Cardiology Clinic at the [facility] on Aug 14, 2017. 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 He underwent a central shunt, followed by a Fortino procedure and completion of a Fontan procedure at the [facility] in data services developer. He had catheter closure of his Fontan fenestration at the [facility] in January 2007. Jude is here [...] no longer playing basketball. 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 Prescription Medications as of 10/03/2017 digoxin [...] FH/SH: Jude and his family live in [place]. His mother is a nurse at [employer]. His height is 1.631 m (5' 4.21) [...] twice daily Average HR was 56 bpm ([id number]) 779 PVC's (< 1% = rare), no [...] one week zio. Sincerely, Cordell Juarez M.D. Data Entry Processor of Pediatrics Division of Pediatric Cardiology [facility] documented in this encounter Nursing Notes Kim uSmmers MA - 08/14/2017 9:15 AM CST Informant- Jude is accompanied by mother Reason for Visit- Tachycardia Vitals signs- BP 103/61 Pulse 66 Resp 18 Ht 1.631 m (5' 4.21) Wt 58.8 kg (129 lb 10.1 oz) SpO2 95% BMI 22.1 kg/m2 There are concerns about the child's exposure to violence in the home: No Face to Face time: 5 minutes Kim Summers MA BLAST CARVER documented in this encounter Plan of Treatment Upcoming Encounters Date Type Specialty Care Team Description 07/27/2022 Ancillary Procedure Cardiology Cordell Juarez MD [address] [place] [id number] (Arleen valdes) 07/27/2022 Office Visit Cardiology Cordell Juarez MD [facility] [address] [address] (Arleen valdes) documented as of this encounter Results Zio Patch Holter (09/16/2017) Narrative RADIANT - 09/16/2017 [facility] [address] [place] [phone] 09/16/2017 Patient: ??Jude Rajansif Chart: [id number] : ??2000 Age: ??17 year old Sex: ??male Procedure: ??ZioPatch Monitor. Supplier Specialist performing hook-up: ??Charles Matt Cordell Juarez MD CV CARDIAC SERVICES ORDERABL ES Performing Organization Address City/State/ZIP Code Phon e Number RADIANT documented in this encounter Visit Diagnoses Diagnosis Chest pain, unspecified type - Primary Chest pain, unspecified type documented in this encounter Care Teams Spoon Maker Relationship Specialty Start Date End Date Stephen Sauceda PCP - General Pediatrics 03/06/17 06/24/[address] [address] documented as of this encounter
--- OUTSIDE RECORDS SUMMARY | 2022-04-10 10:27 | XMS_ITS | Encounter Summary ---
:2000 Author Organization [place] Address [address] [facility] [place] [address] Care Team Providers Name Role Phone Komal, Stephen Grant Primary Care Provider Reason for Visit Reason Onset Date Comments Prior Auth - Medication 06/21/2017 sildenafil (PEPE WILMA) 20 MG tablet - APPROVED Encounter Details Date Type Department Care Team Description 06/21/2017 Telephone [facility] Cordell Juarez Prio r Auth - [facility] Pediatric MD Medication (sildenafil Specialty Clinic [facility] (REVATIO) 20 MG tablet [address] [facility] MB556 - APPROVED) Explorer [id number] [place] [address] [place] [address] Social History Tobacco Use Types [...] is only available through mail order at [facility] [place], [place] - [address] and is the only way a prior authorization was able to be completed. I will message nurse to have script sent to pharmacy. Prior Authorization Approval Via Phone Authorization Effective Date: 05/26/2017 Authorization Expiration Date: 06/24/2020 Medication: sildenafil (REVATIO) 20 MG tablet - APPROVED Approved Dose/Quantity: Reference #: Insurance Company: [employer] - Expected CoPay: CoPay Card Available: Foundation Assistance Needed: Which Pharmacy is filling the prescription (Not needed for infusion/clinic administered): [facility] [place] [id number] Pharmacy Notified: Yes Patient Notified: EL DEVELOPER Telephone Encounter - Betsy Tyler - 06/21/2017 4:41 PM CST Images from the original note were not included. Central Prior Authorization Team RX CALLS: EL DEVELOPER documented in this encounter Plan of Treatment Upcoming Encounters Date Type Specialty Care Team Description 07/27/2022 Ancillary Procedure Cardiology Cordell Juarez MD [address] [facility] [address] [place] [address] (Wo rk) 07/27/2022 Office Visit Cardiology Cordell Juarez MD [address] [place], [place] [id number] (Wo rk) documented as of this encounter Visit Diagnoses Not on filedocumented in this encounter Care Teams Restrooms Or Lounges Maid Relationship Specialty Start Date End Date Stephen Sauceda PCP - General Pediatrics 03/06/17 06/24/19 [facility] [address] [place] [address] (work) documented as of this encounter
--- OUTSIDE RECORDS SUMMARY | 2022-04-10 10:27 | XMS_ITS | Encounter Summary ---
:2000 Author Organization [place] Address [facility] [place] [address] Care Team Providers Name Role Phone KomalStephen mejia Rudy Primary Care Provider Encounter Details Date Type Department Care Team Description 08/26/2017 Orders Only [facility] Cordell Juarez Atri al tachycardia (H) (Primary Dx); Pediatric Specialty Tachycardia Clinic [address] [facility] [address] [place] [id number] [phone] Social History Tobacco Use Types Packs/Day Years [...] Ancillary Procedure Cardiology Cordell Juarez MD [address] [facility] [address] [place] [address] (Wo rk) 07/27/2022 Office Visit Cardiology Cordell Juarez MD [address] [facility] [place] [address] (Wo rk) documented as of this encounter [...] unspecified documented in this encounter Care Teams Home Restoration Service Cleaner Relationship Specialty Start Date End Date Stephen Sauceda PCP - General Pediatrics 03/06/17 06/24/19 [facility] [address] [place] [address] documented as of this encounter
--- OUTSIDE RECORDS SUMMARY | 2022-04-10 10:27 | XMS_ITS | Encounter Summary ---
:2000 Author Organization [place] Address [address] [place] [address] Care Team Providers Name Role Phone KomalStephen Primary Care Provider Reason for Referral - Closed Specialty Diagnoses / Procedures Referred By Contact Refer red To Contact Cardiology Diagnoses Hypoplastic left heart syndrome Tachycardia Cordell Juarez MD Zz Rh Echocardiography Procedures Echo pediatric congenital [address] [facility] [address] [place], [place] [address] [place] [address] Phone: Referral ID Status Reason Start Date Expiration Date Visits Requ ested Visits Authorized [id number] Closed 10/30/2017 10/30/2018 1 1 Reason for Visit Reason Comments RECHECK Hypoplastic left heart syndr ome Encounter Details Date Type Department Care Team Description 10/30/2017 Office Visit [facility] Cordell Juarez, mEi plastic left heart syndrome (Primary Dx); Pediatric Specialty Tachycardia; Clinic [place] [address] [facility] SVT (supraventricular tachyc ardia) (H) [address] [place] [phone] Social History Tobacco Use Types Packs/Day Years [...] Visit: October 30, 2017 PCP: Ana Li [place] Dear Dr. Winchester, I had the pleasure of seeing your patient, Jude Bills, in the Pediatric Cardiology Clinic at the [facility] on October 30, 2017. 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 He underwent a central shunt, followed by a Fortino procedure and completion of a Fontan procedure at the [facility] in leather drier. He had catheter closure of his Fontan fenestration at the [facility] in January 2007. Jude is here [...] no longer playing basketball. 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 Prescription Medications as of 10/30/2017 [...] FH/SH: Jude and his family live in [place]. His mother is a nurse at [employer] [...] non caffeinated fluids. Sincerely, Cordell Juarez M.D. Change Consultant of Pediatrics Pediatric and Adult Congenital Cardiology [facility] Pediatric Cardiology Office [phone] Adult Congenital Cardiology Triage and Scheduling [phone] documented in this encounter Nursing Notes Kim [...] 07/27/2022 Ancillary Procedure Cardiology Cordell Juarez MD [address] [place] [address] (Wo rk) 07/27/2022 Office Visit Cardiology Cordell Juarez MD [address] [place] [address] (Wo rk) documented as of this encounter [...] PM CDT Narrative 10/30/2017 5:06 PM CDT [id number]^JAVIER^CORDELL^RYAN ?Study ID: [id number] ?[facility] ?[facility] ?[address] ?[place] [address] ? Pediatric Echocardiogram __ Name: JUDE BILLS Study Date: 10/30/2017 02:34 PM ? Patient Location: [facility] ? Age: 17 yrs : 2000 [...] Procedure Note Kofi Swan MD - 10/30 [id number] [facility] [id number]^JAVIER^CORDELL^RYAN Study ID: [id number] [place] [address] Pediatric Echocardiogram __ Name: JUDE BILLS Study Date: 10/30/2017 02:34 PM Patient Location: [facility] Age: 17 yrs : 2000 BP: [...] unspecified documented in this encounter Care Teams Associate Property Manager Relationship Specialty Start Date End Date Stephen Sauceda PCP - General Pediatrics 03/06/17 06/24/19 [facility] [address] [place] [address] documented as of this encounter
--- OUTSIDE RECORDS SUMMARY | 2022-04-10 10:28 | XMS_ITS | Encounter Summary ---
:2000 Author Organization [place] Address [address] [place] [address]. [place] [address] Care Team Providers Name Role Phone Unavailable Primary Care Provider Unavailable Reason for Visit Reason Onset Date Comments Refill Request 02/28/2016 Encounter Details Date Type Department Care Team Description 02/28/2016 Refill [facility] Pediatric Cordell Juarez MD Refill Request Specialty Clinic [id number] [facility] [place] [address] [place] [address] [phone] Social History Tobacco Use Types Packs/Day Years [...] Ancillary Procedure Cardiology Cordell Juarez MD [address] [place], [place] [address] [place] [address] (Wo rk) 07/27/2022 Office Visit Cardiology Larry, Cordell skelton MD [address] [place] [address] (Wo rk) documented as of this encounter Visit Diagnoses Diagnosis 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
--- OUTSIDE RECORDS SUMMARY | 2022-04-10 10:28 | XMS_ITS | Encounter Summary ---
:2000 Author Organization [facility] Address [address] [place] [address]. [place] [address] Care Team Providers Name Role Phone Unavailable Primary Care Provider Unavailable Reason for Visit Auth/Cert Specialty Diagnoses / Procedures Referred By Contact Refer red To Contact Surgery Diagnoses Double Outleft Right Ventricle, Left Ventricle Hypoplastic Ur Periop Procedures HEART CATH CHILD EP STUDY CHILD EP ABLATION CHILD [address] [place], [place] [address]LARY King [address]4 450 Phone: Fax: Referral ID Status Reason Start Date Expiration Date Visits Requ ested Visits Authorized [id number] 1 1 Encounter Details Date Type Department Care Team Description 01/18/2016 - Hospital Encounter [facility] Akash Blackman MD [address] [place] [address] [id number] Hypoplastic left heart syndrome (Primary Dx); 01/20/2016 [facility] Pediatric Marisabel Ugarte MD [address] [place] [id number] S/P Fontan procedure; Medical Surgical HYPOPLASTIC LEFT HEART SYND Unit [address] [place] [address] [place] [id number] Social History Tobacco Use Types Packs/Day Years [...] 01/20/2016 6:36 AM CD T Growth Chart: [facility] (Boys, 2-20 Years) documented in this encounter Discharge Summaries Marisabel Ugarte MD - 01/20/2016 2:24 PM CDT [facility] [place] Discharge Summary Pediatric Cardiology Date of Admission: [...] 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 He had catheter closure of his Fontan fenestration at the [facility] in January 2007. He has [...] Ugarte MD - 01/19/2016 2:00 PM CDT [facility] [place] Pediatric Cardiology Progress Note Date of Service [...] Ep study, Ep ablation) Preparation Comment This conventional underwriter introduced self and role to pt/family [...] formally assessed Anxiety Appropriate Techniques Used to [place]/Comfort/Calm family presence;medication;other (see comments) (pt benefits from hearing reassurances or information in reassuring manner) Special Interests has his phone for distraction as needed Outcomes/Follow Up Provided Materials D/I: Pt may appear calm when first met or hearing information but is prone to anxiety. For example, when asked if he played the [employer] Loyalty he said no, it was weird. Then stated, too many people from it. When asked to explain, he said You can get kidnapped. His dad said he didn't think so and pt retorted, Yeah, well, look it up on the internet. This conventional underwriter commented that the internet is not [...] Howe MD - 01/18/2016 9:39 AM CDT [facility] Pre cath progress note Jude Bills 15 year old 2000 [id number] Magda Winchester HPI: Jude Bills is a [...] Xiopatch. 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 He had catheter closure of his Fontan fenestration at the [facility] in January 2007. He has been followed [...] Fortino now with Fenestrated Fontan Done at [place] ??? Congenital anomalies of intestinal fixation s/p [...] Adopted: Yes ??? Unknown/Adopted child adopted from [place] at 10mo of age ??? Unknown/Adopted ??? [...] Antibody Screen Neg Test Valid Only At [facility] Specimen Expires 01/21/2016 Crossmatch Red Blood Cells INR Result Value Ref Range INR 1.38 (H) 0.86 - 1.14 Blood component Result Value Ref Range Unit Number [id number] Blood Component Type Red Blood Cells Leukocyte Reduced Division Number 00 Status of Unit No longer available 01/18/2016 1250 Blood Product Code [id number] Unit Status RET Blood component Result Value Ref Range Unit Number [id number] Blood Component Type Red Blood Cells Leukocyte Reduced Division Number 00 Status of Unit No longer available 01/18/2016 1250 Blood Product Code [id number] Unit Status RET Digoxin level Result Value [...] requested. Waiting for room to be ready. Slip Operator is releading air from right groin safeguard [...] Medication Reconciliation and Education - [facility] - 01/20/2016 11:31 AM CDT Discharge medication [...] in patient's room doing discharge medication teaching. Electronically signed by [facility] at 01/20/2016 11:32 AM CDT Plan of Care - Catarina Santiago RN [...] had this pain before and quickly subsided. [place] team aware and came to assess. Metoprolol [...] 6, section 70.4. Sincerely, Luba Merchant MD Sales Person, Utilization Review/ Case Management [facility] Services Admission Status; Secondary Review Determination [facility] [phone] office [phone] Plan of Care - Catarina Santiago RN [...] Kimball MD - 01/18/2016 11:02 AM CDT [facility] BRIEF POST-PROCEDURE NOTE Pre-procedure diagnosis 1. DORV, d-TGA, hypoplastic left ventricle, s/p bidirectional Fortino and extracardiac Fontan, s/p device closure of Fontan fenestration 2. SVT on Ziopatch Post-procedure diagnosis same Procedure 1. Electrophysiology study Staff Dr Kimball Skin Tanner(s) Naatlia Conner Anesthesia general anesthesia via LMA Access 7F RFV, 5F RFA Specimens None IV contrast 0 mL Heparinized Yes Blood loss 3 mL Complications None Preliminary findings: ?? Long RP atrial tachycardia was induced with Isuprel and baseline HR 120 with double stimulation at 400/220/220 ?? Cycle length of tachycardia was 283 ms with 1:1 conduction RP 157 ms, NE 125 ms. ?? Tachycardia spontaneously terminated with [...] afternoon. Soo Srivastava MD Pediatric Cardiology [place] [facility] This patient has been seen and evaluated [...] 01/18/2016 9:52 AM CDT PEDIATRIC CARDIAC ELECTROPHYSIOLOGY [address] [place] [address] ELECTROPHYSIOLOGY PROCEDURE NOTE Name: Jude Bills Date of : 2000 Date of Procedure: 01/18/2016 Attending: Chari Kimball MD Skin Tanner: Natalia Jasso Fellow: Aleyda Vann MD Referring: [...] Wide QRS axis Abnormal Cycle length 894 NE interval 149 QRS duration 114 QT interval [...] ERP - 290 AVN ERP (fast) 310 (WI=571 ms) - AVN ERP (slow) < 290 (RB=450 ms) - AP ERP Not present Not [...] length Paced cycle length PPI Corrected SNRT 851 902 8868 153 310 119 3266 135 614 496 1957 192 071 992 1573 111 889 272 7500 106 084 452 3831 362 046 747 8246 1192 911 292 0168 1212 SVT Long RP atrial tachycardia was induced with Isuprel and baseline HR 120 with double stimulation at 400/220/220. Cycle length of tachycardia was 283 ms with 1:1 conduction RP 157 ms, NE 125 ms. Tachycardia spontaneously terminated with ventricular [...] Pediatric Cardiac Electrophysiology Billing codes: Diagnostic study 72953 Comprehensive EP study 10901 Isuprel administration 08852 Atrial pacing 06630 Induction of arrhythmia by pacing 11686 Tachycardia mapping This patient has been seen [...] Howe MD - 01/18/2016 9:42 AM CDT [facility] BRIEF POST-PROCEDURE NOTE Pre Cath CRISP score 3 Risk Category 2 Pre-procedure diagnosis DORV, d-TGA, hypoplastic LV s/p bidirectional Fortino and extracardiac Fontan,s/p device closure of Fontan fenestration Post-procedure diagnosis same Procedure 1. right and retrograde left heart cath 2. angiography Staff Dr. Kathleen Skin Tanner(s) Natalia Conner Anesthesia general anesthesia via LMA [...] cath procedure Soo Srivastava MD Pediatric Cardiology [facility] documented in this encounter Plan of Treatment Upcoming Encounters Date Type Specialty Care Team Description 07/27/2022 Ancillary Procedure Cardiology Cordell Juarez MD [address] [place], [place] [phone] (Wo rk) 07/27/2022 Office Visit Cardiology Cordell Juarez MD [address] [place] [address] (Wo rk) documented as of this encounter [...] (H) 0.86 - 1.14 U [facility] Specimen Anatomical Collection Method Collection Time Receive d Time (Source) Location / / Volume Laterality Blood specimen 01/20/2016 7:56 AM 016 7:57 (specimen) CDT AM CDT Kirsten Carter MD LAB - BLOOD ORDERABLES Performing Organization Address City/State/ZIP Code Phon e Number [facility] (ABNORMAL) INR (01/19/2016 3:29 PM CDT) P athologist Signature INR 1.23 (H) 0.86 - 1.14 U [facility] Specimen Anatomical Collection Method Collection Time Receive d Time (Source) Location / / Volume Laterality Blood specimen 01/19/2016 3:29 PM 016 3:30 (specimen) CDT PM CDT Tammy Salvador MD LAB - BLOOD ORDERABLES Performing Organization Address City/[facility]/ZIP Code Phon e Number [facility] (ABNORMAL) Holter set up 48 hrs pediatric (01/19/2016 12:00 PM CDT) Narrative RADIANT - 01/19/2016 12:00 PM CDT [facility]AT[facility]IC [facility]ICAL SURGICAL UNIT [phone] [facility] [phone] 01/19/2016 Patient: ??Jude Bills Chart: [id number] : ??2000 Age: ??15 year old Sex: ??male Procedure: ??Event Monitor Placed:holter placed on pt on 01/19/2016 at 1200 and can be removed on 01/21/2016 a t 1200. Please see scanned document for result once interpr etation is completed. Government Operations Consultant performing hook-up: ??Nadira Garcia 02/01/2016 at 12:31PM I left a voicemail on [phone] (Character Booster sangita's phone#) to give the EKG lab [...] on February 03, 2016 at 3:56 PM [facility] Diagnostics - EKG Lab HOLTER [...] lead - pediatric (01/19/2016 10:27 AM CDT) [facility] [employer] Method Time Signature Interpretation ECG Click View RADIOLOGY Image link RESULTS to view waveform and result Specimen (Source) Anatomical Collection Method Collection Time Re ceived Time Location / / Volume Laterality 01/19/2016 10:27 AM CDT Tammy Salvador MD ECG ORDERABLES Performing Organization Address City/State/ZIP Code Phon e Number RADIOLOGY RESULTS ABO/Rh type and screen - PCU collect line draw (01/18/2016 12:47 PM CDT) [employer] Method Time Signature ABO Canceled, [facility] Test credited [facility] RH(D) Canceled, [facility] Test credited [facility] Antibody Canceled, [facility] Screen Test credited [facility] [place] [facility] Test Valid Not done [facility] Only At [facility] Specimen 01/21/2016 [facility] Expires [facility] Blood Bank Duplicate [facility] Comment request [facility] Specimen Anatomical Collection Method Collection Time Receive d Time (Source) Location / / Volume Laterality Blood specimen 01/18/2016 12:47 6 (specimen) PM CDT 12:52 PM CDT Aleyda Vann MD LAB - BLOOD BANK TEST ORDER Performing Organization Address City/State/ZIP Code Phon e Number [facility] [address] [place] [address] [facility] EKG 12 lead - pediatric (01/18/2016 11:56 [...] this Cardiology exam is scanned in to [employer] and can be found under the Media Tab in the [facility] Review activity. Marisabel Ugarte MD CV ELECTROPHYSIOLOGY [...] - ENTER/EDIT PO CT Performing Organization Address [facility] Phon e Number FV POINT OF CARE TEST, HANDHELD METER POINT OF CARE TEST, HANDHELD METER Peds heart cath (01/18/2016 9:30 AM CDT) Specimen (Source) Anatomical Location Collection Method / Collectio n Time Received Time / Laterality Volume Narrative RADIANT - 01/25/2016 12:12 PM CDT The results/report for this Cardiology exam is scanned in to [employer] and can be found under the Media Tab in the [employer] Review activity. Marisabel Ugarte MD CV CARDIAC CATH ORDERABLES Performing Organization Address [facility] Phon e Number [facility] (ABNORMAL) Activated [...] - ENTER/EDIT PO CT Performing Organization Address [facility] Phon e Number FV POINT OF CARE TEST, HANDHELD METER POINT OF CARE TEST, HANDHELD METER (ABNORMAL) Oxyhemoglobin (01/18/2016 8:46 AM CDT) [facility] Method Time Signature Oxyhemoglobin 90 (L) 92 - 100 % POINT OF CARE Arterial TEST, BLOOD GAS/WHOLE BLOOD Specimen Anatomical Collection Method Collection Time Receive d Time (Source) Location / / Volume Laterality 01/18/2016 8:46 AM 6 CDT 12:40 PM CDT Akash Macedo MD LAB - BLOOD ORDERAB LES Performing Organization Address [facility] Phon e Number FV POINT OF [...] (ABNORMAL) Arterial Panel (01/18/2016 8:46 AM CDT) [facility] Method Time Signature pH Arterial 7.31 (L) [...] 1.6 0.5 - 2.0 [facility] ug/L [facility] Specimen Anatomical Collection Method Collection Time Receive d Time (Source) Location / / Volume Laterality Blood specimen 01/18/2016 7:36 AM 016 7:48 (specimen) CDT AM CDT Akash Macedo MD LAB - BLOOD ORDERAB LES Performing Organization Address City/[facility]/ZIP Code Phon e Number [address] [address] [facility] Blood component (01/18/2016 7:30 AM CDT) [facility] [employer] [employer] Method Time Signature Unit Number [id number] [facility] BANK Blood Red Blood [facility] Component Cells [facility] Reduced BANK Division 00 [facility] Number [facility] Status of No longer [facility] Unit available [facility] 01/18/2016 [facility] 1250 BANK Blood Product [id number] [facility] BANK Unit Status RET [facility] B[facility] Specimen Anatomical Collection Method Collection Time Receive d Time (Source) Location / / Volume Laterality 01/18/2016 7:30 AM 6 7:42 CDT AM CDT Akash Macedo MD LABORATORY Performing Organization Address City/[facility]/ZIP Code Phon e Number [address] [address] [facility] Blood component (01/18/2016 7:30 AM CDT) [employer] [facility] Method Time Signature Unit Number [id number] [facility] Blood Red Blood [facility] Component Cells [facility] Leukocyte [facility] Reduced BANK Division 00 [facility] Number [facility] Status of No longer [facility] Unit available [facility] 01/18/2016 [facility] 1250 BANK Blood Product [id number] [place] [facility] BANK Unit Status RET [facility] Specimen Anatomical Collection Method Collection Time Receive d Time (Source) Location / / Volume Laterality 01/18/2016 7:30 AM 6 7:42 CDT AM CDT Akash Macedo MD LABORATORY Performing Organization Address City/State/ZIP Code Phon e Number [address] [address] [facility] (ABNORMAL) INR (01/18/2016 7:30 AM CDT) P athologist Signature INR 1.38 (H) 0.86 - 1.14 [facility] Specimen Anatomical Collection Method Collection Time Receive d Time (Source) Location / / Volume Laterality Blood specimen 01/18/2016 7:30 AM 016 8:05 (specimen) CDT AM CDT Akash Macedo MD LAB - BLOOD ORDERAB LES Performing Organization Address City/[facility]/ZIP Code Phon e Number [address] [address] [facility] ABO/Rh type and screen (01/18/2016 7:30 AM CDT) [facility] [employer] Method Time Signature Units Ordered 2 [facility] ABO AB [facility] RH(D) Pos [facility] Antibody Neg [facility] Screen [facility] Test Valid [facility] B[facility] w Hospital Specimen 01/21/2016 [place] [facility] Expires [facility] Crossmatch Red Blood [facility] Specimen Anatomical Collection Method Collection Time Receive d Time (Source) Location / / Volume Laterality Blood specimen 01/18/2016 7:30 AM 016 7:42 (specimen) CDT AM CDT Akash Macedo MD LAB - BLOOD BANK TE ST ORDER Performing Organization Address City/[facility]/ZIP Code Phon e Number [address] [address] [facility] EKG 12 lead - pediatric (01/18/2016 7:18 AM CDT) [facility] [employer] Method Time Signature Interpretation ECG Click View [...] DAILY, First dose (after last modification) on [facility] 01/19/16 at 0830, For Adults, Hold [...] DAILY, First dose (after last modification) on [facility] 01/19/16 at 0800 Given 01/19/2016 8:02 AM CDT 25 mg warfarin (COUMADIN) tablet 2.5 mg Given 01/18/2016 6:23 PM CDT 2.5 mg 2.5 mg, Oral, ONCE AT 6PM, On Sat01/18/16 at 1800, For 1 dose warfarin (COUMADIN) tablet 5 mg Given 01/19/2016 6:02 PM CDT 5 mg 5 mg, Oral, ONCE AT 6PM, On [facility] 01/19/16 at 1800, For 1 dose documented in this encounter Active and Recently Administered Medications Times are shown in CDT. Scheduled Medication Order 01/18/2016 01/19/2016 01/20/2016 digoxin (LANOXIN) tablet 250 mcg (CANCELED) 0802 (Given - Provider: Dalila Stephens RN) 08 (Given - Provider: Faith Weinstein RN) 250 mcg, Oral, DAILY, First dose on [facility] 01/19/16 at 0800 lisinopril (PRINIVIL,ZESTRIL) tablet [...] (New Bag - Provider: Lelia Cuellar APRN TRAFFIC WORKER)1120 (Stopped - Provider: Lelia Cuellar APRN TRAFFIC WORKER) 0.2 mcg/kg/hr ? 55.5 kg (2.775 mL/hr, [...]
--- OUTSIDE RECORDS SUMMARY | 2022-04-10 10:28 | XMS_ITS | Encounter Summary ---
:2000 Author Organization [place] Address [address] [facility] [place] [address] Care Team Providers Name Role Phone Unavailable Primary Care Provider Unavailable Reason for Visit Reason Comments Shortness of Breath Chest Pain Encounter Details Date Type Department Care Team Description 08/31/2016 Emergency [facility] SophiaGuille menendez Heart p alpitations; [facility] Emergency MD Jaclyn History of corrected congenital malforma tion of heart Department [address] [facility] [address] [facility] [place] [address] [place], [place] [phone] (Wo rk) Social History Tobacco Use Types [...] Body Mass Index 22.31 05/23/2016 2:27 PM BARGE HAND Body Mass Index Percentile 67.31 % 08/31/2016 10:31 AM C DT Growth Chart: [facility] (Boys, 2-20 Years) documented in this encounter Discharge Instructions Discharge InstructionsMelony Harkins MD - 08/31/2016 12:12 PM CDT Emergency Department Discharge Information for Jude Roque was seen in the [facility] Emergency Department today for heart palpitations by [...] with 0.4 and 0.8 ml, call us ([phone]) or check with your doctor about the [...] Ugarte MD - 08/31/2016 11:36 AM CDT [facility] Consult Note Assessment and Plan: Jude is a 16 year old 7 month old with complex cyanotic heart disease, including double outlet rightventricle, left ventricular hypoplasia, 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 He had catheter closure of his Fontan fenestration at the [facility] in January 2007. Jude had an EP [...] current medication regimen. Saw Bardales DO Pediatric Bag Machine Adjuster Chief Complaint: Palpitations for 20 mins on the day of this visit. 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 He underwent a central shunt, followed by a Fortino procedure and completion of a Fontan procedure at the [facility] in saw straightener. He had catheter closure of his Fontan fenestration at the [facility] in January 2007. Jude had an EP [...] ??? 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 Congenital anomalies of spleen Polysplenia ??? Esophageal reflux ??? 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 [...] Mom out of town phone number is [phone]. Dad is on his way to the ER. Pt arrived with a [facility] [employer] Tonya Mejia RN - 08/31/2016 10:34 [...] Fortino now with Fenestrated Fontan Done at [place] Past Surgical History Procedure Laterality Date ??? [...] and Surgical History, and Social History inthe Escom system. Review of Systems Please see HPI [...] MEJIA RN AT 1111 ON 08.31.16 BY 6828 INR Result Value Ref Range INR 2.66 [...] monitor - Return sooner or call cardiology residential care officer if repeat palpitations, shortness of breath, lightheadedness, lethargy, chest pain, or any other concerns. I have reviewed the nursing notes. I have reviewed the findings, diagnosis, plan and need for follow up with the patient. New Prescriptions No medications on file Final diagnoses: None Patient seen and discussed with Dr. Cortes. Melony Harkins MD, PL-3 08/31/2016 [facility] EMERGENCY DEPARTMENT This data was collected with [...] Procedure Cardiology Cordell Juarez MD [address] [facility] [address] [place] [address] (Wo lucio) 07/27/2022 Office Visit Cardiology Cordell Juarez MD [address] [facility] [address] [place] [address] (Wo lucio) documented as of this encounter [...] hrs pediatric (09/10/2016 12:15 PM CDT) Impressions ONANCOCK - 09/10/2016 12:15 PM CDT HOLTER MONITOR [...] s cenario. Electronically interpreted and signed by Cordell Juarez MD on September 10, 2016 at 9:51 PM Narrative RADIANT - 09/10/2016 12:15 PM CDT [facility] EMERGENCY DEPARTMENT [address] [place] [address] 08/31/2016 Patient: ??Jude Cho [facility] Chart: [id number] : ??2000 Age: ??16 year old Sex: ??male Procedure: ??Holter Monitor Placed: ken saldivar see scanned document for result once interpretation is completed. Holter monitor ??placed on 08/31/2016 at 1215 pm and can be removed on 09/02/2016 at 1215pm Dog Licenser performing hook-up: ??Nadira VinayBere Shaniquacasandragil HOLTER MONITOR [...] on September 07, 2016 at 9:06 AM [facility] Diagnostics - EKG Lab Melony [...] LAB - BEAKER POCT Performing Organization Address City/[facility]/ZIP Code Phon e Number FV POINT OF CARE TEST, HANDHELD METER POINT OF CARE TEST, HANDHELD METER CRP inflammation (08/31/2016 10:37 AM CDT) Analysis Performed At Patho logist Time Signature CRP Inflammation <2.9 0.0 - 8.0 [facility] mg/L [facility] Specimen Anatomical Collection Method Collection Time Receive d Time (Source) Location / / Volume Laterality Blood specimen 08/31/2016 10:37 7 (specimen) AM CDT 10:45 AM CDT Melony Harkins MD LAB - BLOOD ORDERABLES Performing Organization Address City/[facility]/ZIP Code Phon e Number [facility] [address] [place] [address] [facility] (ABNORMAL) CBC with platelets differential (08/31/2016 10:37 AM CDT) Patholo gist Method Time Signature WBC 4.7 4.0 - [facility] 11.0 [facility] 10e9/L [facility] RBC Count 5.80 (H) 3.7 - 5.3 [facility] 10e12/L [facility] Hemoglobin 16.9 (H) 11.7 - [facility] 15.7 g/dL [facility] Hematocrit 49.6 (H) 35.0 - [facility] 47.0 % [facility] MCV 86 77 - 100 [facility] fl [facility] MCH 29.1 26.5 - [facility] 33.0 pg [facility] MCHC 34.1 31.5 - [facility] 36.5 g/dL [facility] RDW 13.1 10.0 - [facility] 15.0 % [facility] Platelet Count 217 150 - 450 [place] OF 10e9/L [facility] Diff Method Automated [facility] Method [facility] % Neutrophils 63.2 % [facility] % Lymphocytes 23.3 % [facility] % Monocytes 11.0 % [facility] % Eosinophils 2.1 % [facility] % Basophils 0.4 % [facility] % Immature 0.0 % [facility] Granulocytes [facility] Nucleated RBCs 0 0 /100 [facility] Absolute 3.0 1.3 - 7.0 [facility] Neutrophil 10e9/L [facility] Absolute 1.1 1.0 - 5.8 [facility] Lymphocytes 10e9/L [facility] Absolute 0.5 0.0 - 1.3 [facility] Monocytes 10e9/L [facility] Absolute 0.1 0.0 - 0.7 [facility] Eosinophils 10e9/L [facility] Absolute 0.0 0.0 - 0.2 [facility] Basophils 10e9/L [facility] Abs Immature 0.0 0 - 0.4 [facility] Granulocytes 10e9/L [facility] Absolute 0.0 [facility] Nucleated RBC [facility] Specimen Anatomical Collection Method Collection Time Receive d Time (Source) Location / / Volume Laterality Blood specimen 08/31/2016 10:37 7 (specimen) AM CDT 10:45 AM CDT Melony Harkins MD LAB - BLOOD ORDERABLES Performing Organization Address City/State/ZIP Code Phon e Number [facility] [address] [place] [address] [facility] BNP (08/31/2016 10:37 AM CDT) P athologist Signature N-Terminal Pro 61 0 - 240 [facility] BNP Inpatient pg/mL [facility] Specimen Anatomical Collection Method Collection Time Receive d Time (Source) Location / / Volume Laterality Blood specimen 08/31/2016 10:37 7 (specimen) AM CDT 10:45 AM CDT Melony Harkins MD LAB - BLOOD ORDERABLES Performing Organization Address City/[facility]/ZIP Code Phon e Number [address] [address] [facility] (ABNORMAL) PTT (08/31/2016 10:37 AM CDT) P athologist Signature PTT 59 (H) 22 - 37 sec [facility] Specimen Anatomical Collection Method Collection Time Receive d Time (Source) Location / / Volume Laterality Blood specimen 08/31/2016 10:37 7 (specimen) AM CDT 10:45 AM CDT Melony Harkins MD LAB - BLOOD ORDERABLES Performing Organization Address City/[facility]/ZIP Code Phon e Number [address] [address] [facility] (ABNORMAL) INR (08/31/2016 10:37 AM CDT) P athologist Signature INR 2.66 (H) 0.86 - 1.14 [facility] Specimen Anatomical Collection Method Collection Time Receive d Time (Source) Location / / Volume Laterality Blood specimen 08/31/2016 10:37 7 (specimen) AM CDT 10:45 AM CDT Melony Harkins MD LAB - BLOOD ORDERABLES Performing Organization Address City/[facility]/ZIP Code Phon e Number [address] [address] [facility] (ABNORMAL) Comprehensive metabolic panel (08/31/2016 10:37 AM CDT) P athologist Signature Sodium 139 133 - 144 [facility] mmol/L [facility] Potassium 5.7 (H) 3.4 - 5.3 [facility] mmol/L [facility] Comment: Specimen moderately hemolyzed, Potassium may be falsely elevated NOTIFIED TONYA MEJIA RN AT 1111 ON BY 2745 Chloride 110 98 - 110 mmol/L [facility] Carbon Dioxide 23 20 - 32 mmol/L [facility] Anion Gap 6 3 - 14 mmol/L [facility] Glucose 91 70 - 99 mg/dL [facility] Urea Nitrogen 20 7 - 21 mg/dL [facility] Creatinine 0.68 0.50 - 1.00 [facility] mg/dL [facility] GFR Estimate >90 >60 [facility] Non GFR Calc mL/min/1.7m2 [facility] GFR Estimate If Black >90 >60 [facility] GFR Calc mL/min/1.7m2 [facility] Calcium 8.9 (L) 9.1 - 10.3 [facility] mg/dL [facility] Bilirubin Total 1.0 0.2 - 1.3 mg/dL [facility] Albumin 4.4 3.4 - 5.0 g/dL [facility] N [facility] Protein Total 7.8 6.8 - 8.8 g/dL [facility] Alkaline Phosphatase 182 65 - 260 U/L [facility] ALT 31 0 - 50 U/L [facility] AST Unsatisfactory specimen - hemolyzed 0 - 35 U/L [facility] NOTIFIED TONYA MEJIARN AT 1111 ON 08.31.16 BY 9501 [facility] Specimen Anatomical Collection Method Collection Time Receive d Time (Source) Location / / Volume Laterality Blood specimen 08/31/2016 10:37 7 (specimen) AM CDT 10:45 AM CDT Melony Harkins MD LAB - BLOOD ORDERABLES Performing Organization Address City/[facility]/ZIP Code Phon e Number [facility] [address] [place] [address] [facility] Troponin POCT (08/31/2016 10:34 AM CDT) P [...] EKG 12-lead, complete (08/31/2016 9:32 AM CDT) [facility] Method Time Signature Interpretation ECG Click [...]
--- OUTSIDE RECORDS SUMMARY | 2022-04-10 10:28 | XMS_ITS | Encounter Summary ---
:2000 Author Organization [place] Address [address] [place] [address]. [place] [address] Care Team Providers Name Role Phone Unavailable Primary Care Provider Unavailable Reason for Visit Reason Onset Date Comments Refill Request 08/01/2016 Encounter Details Date Type Department Care Team Description 08/01/2016 Refill [facility] Explorer Cordell Juarez MD Refill Request Pediatric Specialty Clinic [address] [place] [address] [address] [facility] [place] [phone] Social History Tobacco Use Types Packs/Day [...] Ancillary Procedure Cardiology Cordell Juarez MD [address] [place] [address] (Wo rk) 07/27/2022 Office Visit Cardiology Larry, Cordell skelton MD [address] [place] [address] (Wo rk) documented as of this encounter 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
--- OUTSIDE RECORDS SUMMARY | 2022-04-10 10:28 | XMS_ITS | Encounter Summary ---
:2000 Author Organization [place] Address [address] [facility] [place] [address] Care Team Providers Name Role Phone Unavailable Primary Care Provider Unavailable Encounter Details Date Type Department Care Team Description 05/23/2016 Hospital Encounter [facility] LarryCodrell MD [facility] [address] [facility] [address] [place] [address] [phone] Social History Tobacco Use Types Packs/Day Years [...] Procedure Cardiology Cordell Juarez MD [address] [facility] [place] [address] (Arleen valeds) 07/27/2022 Office Visit Cardiology Cordell Juarez MD [address] [place] [address] (Arleen valdes) documented as of this encounter Visit Diagnoses Not on filedocumented in this encounter
--- OUTSIDE RECORDS SUMMARY | 2022-04-10 10:28 | XMS_ITS | Encounter Summary ---
:2000 Author Organization [place] Address [address] [facility] [place] [address] Care Team Providers Name Role Phone Unavailable Primary Care Provider Unavailable Reason for Visit (Routine) - Closed Specialty Diagnoses / Procedures Referred By Contact Refer red To Contact Cardiology Diagnoses [address] JUAREZ. Zzrh Cardiac Test [facility] Procedures ZIOPATCH MONITOR [address] [place], [place] [address] Phone: Fax: Referral ID Status Reason Start Date Expiration Date Visits Requ ested Visits Authorized [id number] Closed 05/23/2016 05/23/2017 1 1 Encounter Details Date Type Department Care Team Description 05/23/2016 Hospital Encounter [facility] Cordell Juarez [facility] (supraventricular [id number] [facility] tachyca rdia) (H) Drive [address] [place] [address] [id number] Social History Tobacco Use Types Packs/Day Years [...] CST Zio patch attached. All questions answered. CRIPTIONIST documented in this encounter Plan of Treatment Upcoming Encounters Date Type Specialty Care Team Description 07/27/2022 Ancillary Procedure Cardiology LarryCordell MD [address] [facility] [place] [address] (Wo rk) 07/27/2022 Office Visit Cardiology Cordell Juarez MD [address] [facility] [place] [address] (Wo rk) documented as of this encounter Procedures Procedure Name Priority Date/Time Associated Diagnosis Comme nts ZIO PATCH HOLTER Routine 05/23/2016 1:49 PM SVT Resul ts for this PRESCRIPTIONIST (supraventricular procedure are in tachycardia) (H) the results section. documented in this encounter Results Zio Patch Holter (05/23/2016 1:49 PM PRESCRIPTIONIST) Narrative RADIANT - 05/23/2016 1:49 PM PRESCRIPTIONIST [address] [address] 05/23/2016 Patient: ??Jude Rajansif Chart: [id number] : ??2000 Age: ??16 year old Sex: ??male Procedure: ??ZioPatch Monitor. Money Laundering Investigator performing hook-up: ??Cassandra Meyer Cordell Juarez MD CV CARDIAC SERVICES ORDERABL ES Performing Organization Address City/State/ZIP Code Phon e Number RADIANT documented in this encounter Visit Diagnoses Diagnosis SVT (supraventricular tachycardia) (H) Other specified cardiac dysrhythmias documented in this encounter
--- OUTSIDE RECORDS SUMMARY | 2022-04-10 10:28 | XMS_ITS | Encounter Summary ---
:2000 Author Organization [place] Address [address] [facility] [place] [address] Care Team Providers Name Role Phone Unavailable Primary Care Provider Unavailable Reason for Visit Reason Comments RECHECK follow up from ED visit for tachycardia Encounter Details Date Type Department Care Team Description 09/06/2016 Office Visit [facility] Cordell Juarez, Hypo plastic left heart syndrome (Primary Dx); Explorer Pediatric MD Tachycardia with heart rate 100-120 beat s per minute Specialty Clinic [address] [facility] [address] [facility] [address] [facility] [address] [place] [id number] [place] [address] [place] [address] Social History Tobacco Use Types [...] 09/06/2016 3:00 PM CD T Growth Chart: [facility][NOTE 3] (Boys, 2-20 Years) documented in this encounter Patient Instructions Patient InstructionsCourt Bell LPN - 09/06/2016 3:00 PM CDT [facility] CARDIOLOGY [facility] [address] [place] [address] Cardiology Clinic Cardiology Office RN Stitch Bonding Machine Drawer InKirsten (Bre) Pediatric Call Center/Scheduling After Hours and Emergency Contact Number * Ask for the field rep bonding machine setter Prescription Renewals The pharmacy must fax requests [...] in the Pediatric Cardiology Clinic at the [facility] on Sep 06, 2016. 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 He underwent a central shunt, followed by a Fortino procedure and completion of a Fontan procedure at the [facility] in x ray equipment mechanic. He had catheter closure of his Fontan fenestration at the [facility] in January 2007. I last saw Jude in clinic in May of 2016 for chest pain. Evaluation at that time included lab work and a Holter which were reassuring and he had been feeling well until about one week ago when hehad an episode of palpitations at school acoompanied by transient desaturations. He was transported by brake repairer railroad to the ER and evaluated in the [...] no longer playing basketball. 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 He continues on his coumadin, and gets INR's checked in [place] with a goal range of 2-2.5. Prescription [...] FH/SH: Jude and his family live in [place]. His mother is a nurse at [employer]. His height is 5' 3.58 (161.5 cm) [...] twice daily Average HR was 56 bpm ([id number]) 779 PVC's (< 1% = rare), no [...] if symptoms persist. Sincerely, Cordell Juarez M.D. Motion Picture Actor of Pediatrics Division of Pediatric Cardiology [facility] documented in this encounter Nursing Notes Court [...] Ancillary Procedure Cardiology Cordell Juarez MD [address] [place], [place] [phone] (Wo rk) 07/27/2022 Office Visit Cardiology Cordell Juarez MD [address] [place], [place] [address] (Wo rk) documented as of this encounter Procedures Procedure Name Priority Date/Time Associated Diagnosis Comme nts EKG 12 LEAD - Routine 09/06/2016 3:43 PM Hypoplastic left Resu lts for this PEDIATRIC CDT heart syndrome procedure are in Tachycardia with the results heart rate 100-120 section. beats per minute documented in this encounter Results EKG 12 lead - pediatric (09/06/2016 3:43 PM CDT) [facility] gist Method Time Signature Interpretation ECG Click [...] PM CDT Narrative 09/07/2016 12:26 AM CDT [id number]^JAVIER^CORDELL^RYAN ?Study ID: [id number] ?[facility] ?[facility] ?[address] ?[place] [address] ? Pediatric Echocardiogram __ Name: JUDE BILLS [...] Procedure Note Kofi Swan MD - 09/07 [id number]^JAVIER^CORDELL^RYAN Study ID: [id number] [place] [address] Pediatric Echocardiogram __ Name: RENÉ JUDE Marquis Study Date: 09/06/2016 03:19 PM Patient Location: [facility] Age: 16 yrs : 2000 BP: 119/62 mmHg Gender: Male HR: 50 Patient Class: Outpatient Height: 38.5 i n Ordering Provider: CORDELL JUAREZ Weight: 1 30 lb Referring Provider: CORDELL JUAREZ A: 1.1 m2 Performed By: Delicia Henrandez RDCS Report approved by: Jayme moseley MD [...]
--- OUTSIDE RECORDS SUMMARY | 2022-04-10 10:28 | XMS_ITS | Encounter Summary ---
:2000 Author Organization [place] Address [facility] [place] [address] Care Team Providers Name Role Phone Unavailable Primary Care Provider Unavailable Encounter Details Date Type Department Care Team Description 05/23/2016 Orders Only [facility] Cordell Juarez SVT (supraventricular Pediatric Specialty tachycardia) (H) Clinic [address] (Primary Dx) [address] [facility] [place] [id number] [phone] Social History Tobacco Use Types Packs/Day Years [...] 07/27/2022 Ancillary Procedure Cardiology Cordell Juarez MD [address] [place], [place] [address] [place] [address] (Wo rk) 07/27/2022 Office Visit Cardiology Cordell Juarez MD [address] [facility] [address] [place] [address] (Wo rk) documented as of this encounter Results Zio Patch Holter (05/23/2016 1:49 PM SPRING ENCASER) Narrative RADIANT - 05/23/2016 1:49 PM SPRING ENCASER [facility] [address] [facility] [address] [facility] [phone] 05/23/2016 Patient: ??Jude Cho [facility] Chart: [id number] : ??2000 Age: ??16 year old Sex: ??male Procedure: ??ZioPatch Monitor. Live Study Manager performing hook-up: ??Cassandra Meyer Cordell Juarez MD CV CARDIAC SERVICES ORDERABL ES Performing Organization Address City/State/ZIP Code Phon e Number RADIANT documented in this encounter Visit Diagnoses Diagnosis SVT (supraventricular tachycardia) (H) - Primary Other specified cardiac dysrhythmias SVT (supraventricular tachycardia) (H) Other specified cardiac dysrhythmias documented in this encounter
--- OUTSIDE RECORDS SUMMARY | 2022-04-10 10:28 | XMS_ITS | Encounter Summary ---
:2000 Author Organization [place] Address [address] [place] [address] Care Team Providers Name Role Phone Unavailable Primary Care Provider Unavailable Encounter Details Date Type Department Care Team Description 03/05/2016 Orders Only [facility]ANDARD Cordell Juarez SVT (supraventricular tachyc ardia) (H) (Primary Dx); [employer] Hypoplastic left heart syndrome Building [address] [place], [place] [address] [address] [place], [place] [address]e. , [facility]. [address] [place] [address] [phone] Social History Tobacco Use Types Packs/Day Years [...] Ancillary Procedure Cardiology Cordell Juarez MD [address] [facility] [place] [address] (Wo rk) 07/27/2022 Office Visit Cardiology Larry, Cordell skelton MD [address] [facility] [address] [place] [address] (Wo rk) documented as of this encounter Visit Diagnoses Diagnosis SVT (supraventricular tachycardia) (H) - Primary Other specified cardiac dysrhythmias Hypoplastic left heart syndrome documented in this encounter
--- OUTSIDE RECORDS SUMMARY | 2022-04-10 10:28 | XMS_ITS | Encounter Summary ---
:2000 Author Organization [place] Address [address] [place] [address]. [place] [address] Care Team Providers Name Role Phone Unavailable Primary Care Provider Unavailable Reason for Visit Reason Comments RECHECK SVT (supraventricular tachyc ardia) Encounter Details Date Type Department Care Team Description 05/23/2016 Office Visit [facility] Larry, Cordell Barajas, Tach ycardia with heart rate 100-120 beats per minute (Primary Dx); Pediatric Specialty MD Palpitations; Clinic [address] HYPOPLASTIC LEFT HEART SYND [address] [place] [address] [phone] Social History Tobacco Use Types Packs/Day Years Used Date Smoking Tobacco: Never Comments: none at home Alcohol Use Standard Drinks/Week Comments No 0 (1 standard drink = 0.6 oz pure alcoho l) Sex Assigned at Date Recorded Male 03/09/2019 1:21 PM CDT documented as of this encounter Last Filed Vital Signs Vital Sign Reading Time Taken Comments Blood Pressure 99/52 05/23/2016 2:27 PM CARAMEL CUTTER MACHINE Pulse 68 05/23/2016 2:27 PM [employer]AMEL C[employer]TER MACHINE Temperature - - Respiratory Rate 20 05/23/2016 2:27 PM CARAMEL CUTTER MACHINE Oxygen Saturation 93% 05/23/2016 2:27 PM [employer]AMEL CUTTER MACHINE Inhaled Oxygen Concentration - - Weight 58.3 kg (128 lb 8.5 oz) 05/23/2016 2:27 PM CARAMEL CUTTER MACHINE Height 161.8 cm (5' 3.7) 05/23/2016 2:27 PM CARAMEL CUTTER MACHINE Body Mass Index 22.27 05/23/2016 2:27 PM CARAMEL CUTTER MACHINE Body Mass Index Percentile 68.94 % 05/23/2016 2:27 PM CS T Growth Chart: [facility] (Boys, 2-20 Years) documented [...] Bills, in the Pediatric Cardiology Clinic at [facility] in [place] on May 23, 2016. 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 He had catheter closure of his Fontan fenestration at the [facility] in January 2007. I last saw Jude [...] no longer playing basketball. 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 He continues on his coumadin, and gets INR's checked in [place] with a goal range of 2-2.5. Current [...] FH/SH: Jude and his family live in [place]. His mother is a nurse at [employer]. His height is 1.618 m (5' 3.7) [...] of [place] Sincerely, Kavitha Mann M.D. Pediatric Filling Station Laborer I have reviewed the clinical history, examined the patient, reviewed the relevant diagnostic studies, and discussed our findings and recommendations with Jude and his mother. I have reviewed and editedthis note. Cordell Juarez M.D. Vest Front Presser of Pediatrics Division of Pediatric Cardiology [facility] MEL CUTTER MACHINE documented in this encounter Nursing Notes Kim Summers MA - 05/23/2016 2:31 PM CST Informant- Jude is accompanied by mother Reason for Visit- SVT (supraventricular tachycardia) Vitals signs- BP 99/52 mmHg Pulse 68 Resp 20 Ht 1.618 m (5' 3.7) Wt 58.3 kg (128 lb 8.5 oz) BMI 22.27 kg/m2 SpO2 93% Face to Face time: 5 minutes Kim Summers MA MEL CUTTER MACHINE documented in this encounter Plan of Treatment Upcoming Encounters Date Type Specialty Care Team Description 07/27/2022 Ancillary Procedure Cardiology Cordell Juarez MD [address] [facility] [address] [place], [place] [address] (Arleen valdes) 07/27/2022 Office Visit Cardiology Cordell Juarez MD [address] [place], [place] [address] (Arleen valdes) Scheduled Orders Name Type Priority [...] Palpitations Resu lts for this DIFFERENTIAL PM CARAMEL CUTTER MACHINE procedure are i n the results section. TSH WITH FREE T4 REFLEX Routine 05/23/2016 4:15 Palpitations R esults for this PM [employer]EL C[employer]TER MACHINE procedure are i n the results section. PHOSPHORUS Routine 05/23/2016 4:15 Palpitations Results for this PM [employer]EL C[employer]TER MACHINE procedure are i n the results section. N TERMINAL PRO BNP Routine 05/23/2016 4:15 Palpitations Result s for this OUTPATIENT PM [employer]EL CUTTER MACHINE procedure are i n the results section. MAGNESIUM Routine 05/23/2016 4:15 Palpitations Results for this PM [employer]EL CUTTER MACHINE procedure are i n the results section. COMPREHENSIVE METABOLIC Routine 05/23/2016 4:15 Palpitations R esults for this PANEL PM CAR[employer]EL CUTTER MACHINE procedure are i n the results section. documented in this encounter Results ELECTROCARDIOGRAM REPORT (05/28/2016) Narrative This result has an attachment that is no t available. Cordell Juarez MD PROCEDURES TSH with free T4 reflex (05/23/2016 4:15 PM CARAMEL CUTTER MACHINE) athologist Signature TSH 2.59 0.40 - 4.00 [facility] mU/L HOSPITAL Specimen Anatomical Collection Method Collection Time Receive d Time (Source) Location / / Volume Laterality Blood specimen 05/23/2016 4:15 PM 016 4:18 (specimen) CARAMEL CUTTER MACHINE PM CARAMEL CUTTER MACHINE Kavitha Mann MD LAB - BLOOD ORDERABLES Performing Organization Address City/State/ZIP Code Phon e Number M [facility] [address], [place] [address] [facility] [address] [place] [address] [phone] BNP-N terminal pro (05/23/2016 4:15 PM CARAMEL CUTTER MACHINE) athologist Signature N-Terminal Pro 75 0 - 240 [place] Bnp pg/mL [facility] Specimen Anatomical Collection Method Collection Time Receive d Time (Source) Location / / Volume Laterality Blood specimen 05/23/2016 4:15 PM 016 4:18 (specimen) CARAMEL CUTTER MACHINE PM CARAMEL CUTTER MACHINE Kavitha Mann MD LAB - BLOOD ORDERABLES Performing Organization Address City/[facility]/ZIP Code Phon e Number M [facility] [address], [place] [address] [facility] [address] [place], [place] [address], [facility] [phone] Phosphorus (05/23/2016 4:15 PM CARAMEL CUTTER MACHINE) P athologist Signature Phosphorus 4.1 2.8 - 4.6 [facility] mg/dL [facility] Specimen Anatomical Collection Method Collection Time Receive d Time (Source) Location / / Volume Laterality Blood specimen 05/23/2016 4:15 PM 016 4:18 (specimen) CARAMEL CUTTER MACHINE PM CARAMEL CUTTER MACHINE Kavitha Mann MD LAB - BLOOD ORDERABLES Performing Organization Address City/[facility]/ZIP Code Phon e Number [facility] [address], [place] [address] [facility] [address] [place], [place] [address], [facility] [phone] Magnesium (05/23/2016 4:15 PM CARAMEL CUTTER MACHINE) P athologist Signature Magnesium 2.3 1.6 - 2.3 [facility] mg/dL [facility] Specimen Anatomical Collection Method Collection Time Receive d Time (Source) Location / / Volume Laterality Blood specimen 05/23/2016 4:15 PM 016 4:18 (specimen) CARAMEL CUTTER MACHINE PM CARAMEL CUTTER MACHINE Kavitha Mann MD LAB - BLOOD ORDERABLES Performing Organization Address City/[facility]/ZIP [facility] Phon e Number M [facility] [address], [place] [address] [facility] [address] [place], [place] [address] [address], [facility] [phone] (ABNORMAL) CBC with platelets and differential (05/23/2016 4:15 PM CARAMEL CUTTER MACHINE) [facility] gist Method Time Signature WBC 6.1 4.0 - [place] 11.[address] RBC Count 5.46 (H) 3.7 - 5.3 [place] [id number] Hemoglobin 15.8 (H) 11.7 - [place] 15.7 g/dL [facility] Hematocrit 47.3 (H) 35.0 - [place] 47.0 % [facility] MCV 87 77 - 100 [facility] MCH 28.9 26.5 - [place] 33.0 pg [facility] MCHC 33.4 31.5 - [place] 36.5 g/dL [facility] RDW 13.1 10.0 - [place] 15.0 % [facility] Platelet Count 203 150 - [address] Diff Method Automated [facility] % Neutrophils 64.2 % [facility] % Lymphocytes 20.5 % [facility] % Monocytes 12.3 % [facility] % Eosinophils 2.1 % [facility] % Basophils 0.7 % [facility] % Immature 0.2 % [place] Granulocytes [facility] Nucleated RBCs 0 0 /100 [facility] Absolute 3.9 1.3 - 7.[address] [place] Neutrophil [address] [place] [address] Absolute 1.3 1.0 - 5.8 [place] Lymphocytes [address] [place] [address] Absolute 0.8 0.0 - 1.3 [place] Monocytes [address] [place] [address] Absolute 0.1 0.0 - 0.7 [place] Eosinophils [address] [place] [address] Absolute 0.0 0.0 - 0.2 [place] Basophils [address] [place] [address] Abs Immature 0.0 0 - 0.4 [place] Granulocytes [address] [place] [address] Absolute 0.0 [place] Nucleated RBC [facility] Specimen Anatomical Collection Method Collection Time Receive d Time (Source) Location / / Volume Laterality Blood specimen 05/23/2016 4:15 PM 016 4:18 (specimen) CARAMEL CUTTER MACHINE PM CARAMEL CUTTER MACHINE Kavitha Mann MD LAB - BLOOD ORDERABLES Performing Organization Address City/State/ZIP Code Phon e Number M [facility] [address], [place] [address] [facility] [address] [place], [place] [address] [place] [address] (ABNORMAL) Comprehensive metabolic panel (BMP + Alb, Alk Phos, ALT, AST, Total. Bili, TP) (05/23/2016 4:15 PM CARAMEL CUTTER MACHINE) [facility] Method Time Signature Sodium 137 133 - 144 [place] mmol/L [facility] Potassium 4.2 3.4 - 5.3 [place] mmol/L [facility] Chloride 104 98 - 110 [place] mmol/L [facility] Carbon Dioxide 28 20 - 32 [place] mmol/L [facility] Anion Gap 5 3 - 14 [place] mmol/L [facility] Glucose 76 70 - 99 [place] mg/dL [facility] Urea Nitrogen 22 (H) 7 - 21 [place] mg/dL [facility] Creatinine 0.89 0.50 - [place] 1.00 [facility] mg/dL [facility] GFR Estimate >90 >60 [place] Non GFR Calc mL/min/1. [address] GFR Estimate If >90 >60 [place] Black GFR Calc mL/min/1. RIDG ES 7m2 [facility] Calcium 8.7 (L) 9.1 - [place] 10.3 [facility] mg/dL [facility] Bilirubin Total 0.9 0.2 - 1.3 [place] mg/dL [facility] Albumin 4.6 3.4 - 5.0 [place] g/dL [facility] Protein Total 8.3 6.8 - 8.8 [place] g/dL [facility] Alkaline 162 65 - 260 [place] Phosphatase U/L [facility] ALT 29 0 - 50 [place] U/L [facility] AST 22 0 - 35 [place] U/L [facility] Specimen Anatomical Collection Method Collection Time Receive d Time (Source) Location / / Volume Laterality Blood specimen 05/23/2016 4:15 PM 016 4:18 (specimen) CARAMEL CUTTER MACHINE PM CARAMEL CUTTER MACHINE Kavitha Mann MD LAB - BLOOD ORDERABLES Performing Organization Address City/State/ZIP Code Phon e Number [facility] [address], [place] [address] [facility] [address] [address] [phone] documented in this encounter Visit Diagnoses Diagnosis Tachycardia with heart rate 100-120 beat s per minute - Primary Palpitations 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
--- OUTSIDE RECORDS SUMMARY | 2022-04-10 10:28 | XMS_ITS | Encounter Summary ---
:2000 Author Organization [place] Address [address] [facility] [place] [address] Care Team Providers Name Role Phone Unavailable Primary Care Provider Unavailable Reason for Visit Reason Comments Heart Problem Hospital follow up Encounter Details Date Type Department Care Team Description 02/03/2016 Office Visit [facility] Marion Figueroa trial node Explorer Pediatric CMD dysfunction (H) Specialty Clinic [address] [facility] (Primary Dx) [address] [place] [address] [facility] [address] [place] [address] [address] [address] [address] [facility] [place] [address] Social History Tobacco Use Types [...] 02/03/2016 12:30 PM C DT Growth Chart: [facility] (Boys, 2-20 Years) documented in this encounter Patient Instructions Patient InstructionsQiana Christensen LPN - 02/03/2016 12:00 PM CDT PEDS CARDIOLOGY [facility] 12th Floor, [facility] [address] [facility] [address] Cardiology Clinic Cardiology Office RN Substation Design DraftspersonKirsten (Bre) Pediatric Call Center/Scheduling After Hours and Emergency Contact Number * Ask for the chief of pediatric urology prisoner classification interviewer Prescription Renewals The pharmacy must fax requests to * Please allow 3-4 days for prescriptions to be authorized documented in this encounter Progress Notes Marion Figueroa MD - 02/03/2016 12:30 PM CDT Your patient, Jude Bills, was seen in the Pediatric Electrophysiology/Cardiology at the [facility] on Feb 03, 2016. 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 He had catheter closure of his Fontan fenestration at the [facility] in January 2007. Jude was last [...] cm, 5%ile based on CDC 2-20 Years [id number] data using vitalsfrom 02/03/2016.. Weight is 56.3 kg, 32%ile based on CDC 2-20 Years [id number] data using vitals from 02/03/2016.. BP 102/54 [...] 42 BPM. The QTC was 352 msec. IN = 164 msec Diagnoses: 1. Heterotaxy Syndrome 2. DORV, left ventricular hypoplasia, d-transposition of the great vessels & PS - S/P central shunt & resection of atrial septum 07/2001 ([facility]) - S/P bilat Bidir Fortino 12/2001 ([facility]) - S/P Fenestrated Fontan (03/2002) - S/P fenestration closure Jan 2007 = 4mm Amplatzer device - S/P cath [id number]: SVEDP = 10, Fontan 14 mmHg 3. Hx of malrotation - S/P [place]'s procedure 4. Hx of ADHD 5. Hx [...] Electrophysiology Pediatric Cardiology & Critical Care Medicine [facility] [address] [facility] [address] [facility] [address] FAX [phone] CC JOSELIN ROJAS Copy to patient JAIMIE BILLS ROBERT [address] [facility] [address] documented in this encounter Nursing Notes Qiana [...] Procedure Cardiology Cordell Juarez MD [facility] [place], [place] [phone] (Wo rk) 07/27/2022 Office Visit Cardiology Cordell Juarez MD [address] [place], [place] [phone] (Wo rk) documented as of this encounter Visit Diagnoses Diagnosis Sinoatrial node dysfunction (H) - Primar y Sinoatrial node dysfunction documented in this encounter
--- OUTSIDE RECORDS SUMMARY | 2022-04-10 10:28 | XMS_ITS | Encounter Summary ---
:2000 Author Organization [place] Address [facility] [place] [address] Care Team Providers Name Role Phone Stephen Sauceda Rudy Primary Care Provider Encounter Details Date Type Department Care Team Description 02/03/2016 Orders Only [facility] Raul Patten, Hypoplasti c left heart syndrome; Pediatric Specialty Serina Mclean RN Tachyc ardia; Clinic [place] SVT (supraventricular tachyc ardia) (H) [address] [facility] [address] [place] [address] Social History Tobacco Use Types [...] Ancillary Procedure Cardiology Cordell Juarez MD [address] [place] [phone] (Wo rk) 07/27/2022 Office Visit Cardiology Cordell Juarez MD [address] [place] [address] [place] [address] (Wo rk) documented as of this encounter Visit Diagnoses Diagnosis Hypoplastic left heart syndrome Tachycardia Tachycardia, unspecified SVT (supraventricular tachycardia) (H) Other specified cardiac dysrhythmias documented in this encounter Care Teams Supervisor Phosphoric Acid Relationship Specialty Start Date End Date Stephen Sauceda PCP - General Pediatrics 03/06/17 06/24/19 [facility] [address] [place] [address] documented as of this encounter
--- OUTSIDE RECORDS SUMMARY | 2022-04-10 10:28 | XMS_ITS | Encounter Summary ---
:2000 Author Organization [facility] Address [address] [place] [address] Care Team Providers Name Role Phone Unavailable Primary Care Provider Unavailable Reason for Visit Auth/Cert Specialty Diagnoses / Procedures Referred By Contact Refer red To Contact Surgery Diagnoses Double Outleft Right Ventricle, Left Ventricle Hypoplastic Ur Periop Procedures HEART CATH CHILD EP STUDY CHILD EP ABLATION CHILD [address] [place] [address] Phone: Fax: Referral ID Status Reason Start Date Expiration Date Visits Requ ested Visits Authorized [id number] 1 1 Encounter Details Date Type Department Care Team Description 01/18/2016 Surgery [facility] Hiremat Right/Left Heart Cath [facility] PeriOp Services Hellen, Procedure, [address] Bustos MD Electrophysiology [place] [address] [place] [address] AVE Ablation [phone] [place] [phone] (Wo rk) Surgery Details Date/Time Status Location [...] ABLATION, PEDIATRIC Surgeon Surgeon Role Service Panel Akash Graves MD Primary Cardiology 1 Chari Kimball [...] 01/20/2016 6:36 AM CD T Growth Chart: [facility] (Boys, 2-20 Years) documented in this encounter Discharge Summaries Marisabel Ugarte MD - 01/20/2016 2:24 PM CDT [facility] Discharge Summary Pediatric Cardiology Date of Admission: [...] completion of a Fontan procedure at the [facility] in [place]. He had catheter closure of his Fontan fenestration at the [facility] in January 2007. He has been [...] Ugarte MD - 01/19/2016 2:00 PM CDT [facility] Pediatric Cardiology Progress Note Date of Service [...] resident. Will continue to monitor. Tamara Sampson [facility] - 01/18/2016 10:29 AM CDT 01/18/16 1023 Child Life Location Surgery (heart cath , Ep study, Ep ablation) Preparation Comment This commercial real estate underwriter introduced self and role to pt/family [...] formally assessed Anxiety Appropriate Techniques Used to [place]/Comfort/Calm family presence;medication;other (see comments) (pt benefits from hearing reassurances or information in reassuring manner) Special Interests has his phone for distraction as needed Outcomes/Follow Up Provided Materials D/I: Pt may appear calm when first met or hearing information but is prone to anxiety. For example, when asked if he played the PoByban Go he said no, it was weird. Then stated, too many people from it. When asked to explain, he said You can get kidnapped. His dad said he didn't think so and pt retorted, Yeah, well, look it up on the internet. This commercial real estate underwriter commented that the internet is not [...] Howe MD - 01/18/2016 9:39 AM CDT [facility] Pre cath progress note Jude Bills 15 year old 2000 [id number] Magda Winchester HPI: Jude Bills is a [...] Xiopatch. Soo Srivastava MD Fellow, Cardiology Pager: [phone] [facility] documented in this encounter H&P Notes Marisabel Ugarte MD - 01/18/2016 1:24 PM CDT [facility] History and Physical Pediatric Cardiology Date of [...] and completion of a Fontan procedure at [facility] in [place]. He had catheter closure of his Fontan fenestration at the [facility] in January 2007. He has been followed [...] Fortino now with Fenestrated Fontan Done at [place] ??? 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 Esophageal reflux ??? Congenital [...] Adopted: Yes ??? Unknown/Adopted child adopted from [place] at 10mo of age ??? Unknown/Adopted ??? [...] Antibody Screen Neg Test Valid Only At [facility] Specimen Expires 01/21/2016 Crossmatch Red Blood Cells INR Result Value Ref Range INR 1.38 (H) 0.86 - 1.14 Blood component Result Value Ref Range Unit Number [id number] Blood Component Type Red Blood Cells Leukocyte Reduced Division Number 00 Status of Unit No longer available 01/18/2016 1250 Blood Product Code [id number] Unit Status RET Blood component Result Value Ref Range Unit Number [id number] Blood Component Type Red Blood Cells Leukocyte Reduced Division Number 00 Status of Unit No longer available 01/18/2016 1250 Blood Product Code [id number] Unit Status RET Digoxin level Result Value [...] requested. Waiting for room to be ready. Filter Screen Cleaner is releading air from right groin safeguard [...] Medication Reconciliation and Education - Kg Dominguez [facility] - 01/20/2016 11:31 AM [...] had this pain before and quickly subsided. [place] team aware and came to assess. Metoprolol [...] 6, section 70.4. Sincerely, Luba Merchant MD Store Sales Manager, Utilization Review/ Case Management [facility] Services Admission Status; Secondary Review Determination jose [phone] office [phone] Plan of Care - Catarina Santiago RN [...] Kimball MD - 01/18/2016 11:02 AM CDT [facility] [place] BRIEF POST-PROCEDURE NOTE Pre-procedure diagnosis 1. DORV, d-TGA, hypoplastic left ventricle, s/p bidirectional Fortino and extracardiac Fontan, s/p device closure of Fontan fenestration 2. SVT on Ziopatch Post-procedure diagnosis same Procedure 1. Electrophysiology study Staff Dr Kimball First Sampler(s) Natalia Conner Anesthesia general anesthesia via LMA Access 7F RFV, 5F RFA Specimens None IV contrast 0 mL Heparinized Yes Blood loss 3 mL Complications None Preliminary findings: ?? Long RP atrial tachycardia was induced with Isuprel and baseline HR 120 with double stimulation at 400/220/220 ?? Cycle length of tachycardia was 283 ms with 1:1 conduction RP 157 ms, WY 125 ms. ?? Tachycardia spontaneously terminated with [...] tomorrow afternoon. Soo Srivastava MD Pediatric Cardiology [facility] This patient has been seen and evaluated [...] 01/18/2016 9:52 AM CDT PEDIATRIC CARDIAC ELECTROPHYSIOLOGY [address] [place] [address] ELECTROPHYSIOLOGY PROCEDURE NOTE Name: Jude Bills Date of : 2000 Date of Procedure: 01/18/2016 Attending: Chari Kimball MD First Sampler: Natalia Jasso Fellow: Aleyda Vann MD Referring: [...] Wide QRS axis Abnormal Cycle length 894 WY interval 149 QRS duration 114 QT interval [...] ERP - 290 AVN ERP (fast) 310 (NW=777 ms) - AVN ERP (slow) < 290 (BF=345 ms) - AP ERP Not present Not [...] length Paced cycle length PPI Corrected SNRT 792 226 1212 153 904 433 1584 135 703 402 5625 192 776 052 8343 111 354 743 8168 106 320 168 2790 362 849 716 6776 1192 297 472 7286 1212 SVT Long RP atrial tachycardia was induced with Isuprel and baseline HR 120 with double stimulation at 400/220/220. Cycle length of tachycardia was 283 ms with 1:1 conduction RP 157 ms, WY 125 ms. Tachycardia spontaneously terminated with ventricular [...] Pediatric Cardiac Electrophysiology Billing codes: Diagnostic study 37683 Comprehensive EP study 74470 Isuprel administration 66770 Atrial pacing 50714 Induction of arrhythmia by pacing 33453 Tachycardia mapping This patient has been seen [...] Howe MD - 01/18/2016 9:42 AM CDT [facility] BRIEF POST-PROCEDURE NOTE Pre Cath CRISP score 3 Risk Category 2 Pre-procedure diagnosis DORV, d-TGA, hypoplastic LV s/p bidirectional Fortino and extracardiac Fontan,s/p device closure of Fontan fenestration Post-procedure diagnosis same Procedure 1. right and retrograde left heart cath 2. angiography Staff Dr. Kathleen First Sampler(s) Natalia Conner Anesthesia general anesthesia via LMA [...] cath procedure Soo Srivastava MD Pediatric Cardiology [facility] documented in this encounter Plan of Treatment Upcoming Encounters Date Type Specialty Care Team Description 07/27/2022 Ancillary Procedure Cardiology Cordell Juarez MD [facility] [address] [address] (Wo rk) 07/27/2022 Office Visit Cardiology Cord[facility] [address] [id number] (Wo rk) documented as of this encounter [...] INR 1.22 (H) 0.86 - 1.14 U [facility] Specimen Anatomical Collection Method Collection Time Receive d Time (Source) Location / / Volume Laterality Blood specimen 01/20/2016 7:56 AM 016 7:57 (specimen) CDT AM CDT Kirsten Carter MD LAB - BLOOD ORDERABLES Performing Organization Address City/State/ZIP Code Phon e Number [facility] (ABNORMAL) INR (01/19/2016 3:29 PM CDT) P athologist Signature INR 1.23 (H) 0.86 - 1.14 U [facility] Specimen Anatomical Collection Method Collection Time Receive d Time (Source) Location / / Volume Laterality Blood specimen 01/19/2016 3:29 PM 016 3:30 (specimen) CDT PM CDT Tammy Salvador MD LAB - BLOOD ORDERABLES Performing Organization Address City/State/ZIP Code Phon e Number [facility] (ABNORMAL) Holter set up 48 hrs pediatric (01/19/2016 12:00 PM CDT) [place] RADIANT - 01/19/2016 12:00 PM CDT [facility] [address] [place], [place] [address] [place] [address] 01/19/2016 Patient: ??Jude Cho [facility]3] Chart: [id number] : ??2000 Age: ??15 year old Sex: ??male Procedure: ??Event Monitor Placed:holter placed on pt on 01/19/2016 at 1200 and can be removed on 01/21/2016 a t 1200. Please see scanned document for result once interpr etation is completed. Hide Tanner performing hook-up: ??Nadira Garcia 02/01/2016 at 12:31PM I left a voicemail on [phone] ([employer] er's phone#) to give the EKG lab [...] on February 03, 2016 at 3:[address] [facility] '[facility] Diagnostics - EKG [...] lead - pediatric (01/19/2016 10:27 AM CDT) [facility] TwoF Method Time Signature Interpretation ECG Click View RADIOLOGY Image link RESULTS to view waveform and result Specimen (Source) Anatomical Collection Method Collection Time Re ceived Time Location / / Volume Laterality 01/19/2016 10:27 AM CDT Tammy Salvador MD ECG ORDERABLES Performing Organization Address City/State/ZIP Code Phon e Number RADIOLOGY RESULTS ABO/Rh type and screen - PCU collect line draw (01/18/2016 12:47 PM CDT) [facility] TwoF Method Time Signature ABO Canceled, [facility] OF Test credited [facility] RH(D) Canceled, [facility] OF Test credited [facility] Antibody Canceled, [facility] OF Screen Test credited [facility] Test Valid Not done [facility] OF Only At [facility] Specimen 01/21/2016 [facility] OF Expires [facility] Blood Bank Duplicate [facility]ITY OF Comment request [facility] Specimen Anatomical Collection Method Collection Time Receive d Time (Source) Location / / Volume Laterality Blood specimen 01/18/2016 12:47 6 (specimen) PM CDT 12:52 PM CDT Aleyda Vann MD LAB - BLOOD BANK TEST ORDER Performing Organization Address City/[facility]/ZIP [facility] Phon e Number [facility] [address] [place] [address] [facility] EKG 12 lead - pediatric (01/18/2016 11:56 AM CDT) Patholo gist Method Time Signature Interpretation ECG Click View RADIOLOGY Image link RESULTS to view waveform and result Specimen (Source) Anatomical Collection Method Collection Time Re ceived Time Location / / Volume Laterality 01/18/2016 11:56 AM CDT Loly SILVER ECG ORDERABLES Performing Organization Address City/[facility]/ZIP [facility] Phon e Number RADIOLOGY RESULTS Peds EP Study/Ablation (01/18/2016 10:54 AM CDT) Specimen (Source) Anatomical Location Collection Method / Collectio n Time Received Time / Laterality Volume Narrative RADIANT - 01/25/2016 12:12 PM CDT The results/report for this Cardiology exam is scanned in to bigtincan and can be found under the Media Tab in the Maria Luisa t Review activity. Marisabel Ugarte MD CV ELECTROPHYSIOLOGY ORDERAB LES Performing Organization Address City/[facility]/ZIP Code Phon e Number [facility] (ABNORMAL) Activated [...] - ENTER/EDIT PO CT Performing Organization Address City/[facility] Phon e Number FV POINT OF CARE [...] - ENTER/EDIT PO CT Performing Organization Address City/[facility] Phon e Number FV POINT OF CARE TEST, HANDHELD METER POINT OF CARE TEST, HANDHELD METER Peds heart cath (01/18/2016 9:30 AM CDT) Specimen (Source) Anatomical Location Collection Method / Collectio n Time Received Time / Laterality Volume Narrative RADIANT - 01/25/2016 12:12 PM CDT The results/report for this Cardiology exam is scanned in to bigtincan and can be found under the Media Tab in the [facility] Review activity. Marisabel Ugarte MD CV CARDIAC CATH ORDERABLES Performing Organization Address City/[facility] Phon e Number [facility] (ABNORMAL) Activated clotting [...] - ENTER/EDIT PO CT Performing Organization Address City/[facility] Phon e Number FV POINT OF CARE TEST, HANDHELD METER POINT OF CARE TEST, HANDHELD METER (ABNORMAL) Oxyhemoglobin (01/18/2016 8:46 AM CDT) [facility] gist Method Time Signature Oxyhemoglobin 90 (L) 92 - 100 % POINT OF CARE Arterial TEST, BLOOD GAS/WHOLE BLOOD Specimen Anatomical Collection Method Collection Time Receive d Time (Source) Location / / Volume Laterality 01/18/2016 8:46 AM 6 CDT 12:40 PM CDT Akash Macedo MD LAB - BLOOD ORDERAB LES Performing Organization Address City/[facility] Phon e Number FV POINT OF CARE [...] - BLOOD ORDERAB LES Performing Organization Address [facility] Phon e Number FV POINT OF CARE [...] - BLOOD ORDERAB LES Performing Organization Address City/[facility] Phon e Number FV POINT OF CARE TEST, BLD GAS/WHOLE BLD POINT OF CARE TEST, BLOOD GAS/WHOLE BLOOD (ABNORMAL) Arterial Panel (01/18/2016 8:46 AM CDT) [facility] gist Method Time Signature pH Arterial 7.31 [...] Arterial Panel (01/18/2016 8:36 AM CDT) [facility] Method Time Signature pH Arterial 7.30 [...] - BLOOD ORDERAB LES Performing Organization Address City/[facility]/ZIP Code Phon e Number FV POINT OF CARE TEST, BLD GAS/WHOLE BLD POINT OF CARE TEST, BLOOD GAS/WHOLE BLOOD Digoxin level (01/18/2016 7:36 AM CDT) P athologist Signature Digoxin Level 1.6 0.5 - 2.0 [facility]/L [facility] Specimen Anatomical Collection Method Collection Time Receive d Time (Source) Location / / Volume Laterality Blood specimen 01/18/2016 7:36 AM 016 7:48 (specimen) CDT AM CDT Akash Macedo MD LAB - BLOOD ORDERAB LES Performing Organization Address City/[facility] Phon e Number [address] [address] [place] BANK Blood component (01/18/2016 7:30 AM CDT) [facility] Method Time Signature Unit Number [id number] [facility] Blood Red Blood [facility]ITY OF Component Cells [facility] Type Leukocyte [facility] BANK Division 00 [facility] OF [facility]ANK Status of No longer [facility] OF Unit available [facility] 01/18/2016 CENTER [place] 1250 BANK Blood Product [id number] [facility] OF [facility] Unit Status RET [facility] Specimen Anatomical Collection Method Collection Time Receive d Time (Source) Location / / Volume Laterality 01/18/2016 7:30 AM 6 7:42 CDT AM CDT Akash Macedo MD LABORATORY Performing Organization Address City/[facility] Code Phon e Number [address] [address] WEST BANK Blood component (01/18/2016 7:30 AM CDT) Patholo gist Method Time Signature Unit Number [id number] [facility] Blood Red Blood [facility] Component Cells [place] [facility] Type Leukocyte [facility]ST Reduced BANK Division 00 [facility] OF Number [facility] Status of No longer [facility] OF Unit available [facility] 01/18/2016 CENTER DEBB[place] 1250 BANK Blood Product [id number] [facility] OF Code [facility] Unit Status RET [facility] Specimen Anatomical Collection Method Collection Time Receive d Time (Source) Location / / Volume Laterality 01/18/2016 7:30 AM 6 7:42 CDT AM CDT Akash Macedo MD LABORATORY Performing Organization Address City/State/ZIP Code Phon e Number [address] [address] [facility] ([facility]NORMAL[facility] INR (01/18/2016 7:30 AM CDT) P athologist Signature INR 1.38 (H) 0.86 - 1.14 [facility] Specimen Anatomical Collection Method Collection Time Receive d Time (Source) Location / / Volume Laterality Blood specimen 01/18/2016 7:30 AM 016 8:05 (specimen) CDT AM CDT Akash Macedo MD LAB - BLOOD ORDERAB LES Performing Organization Address City/[facility] Code Phon e Number [address] [address] [facility] ABO/Rh type and screen (01/18/2016 7:30 AM CDT) Patholo gist Method Time Signature Units Ordered 2 [facility] ABO AB [facility] RH(D) Pos [facility] Antibody Neg UNIV[facility]ITY OF Screen [facility] Test Valid [facility] BANK w Hospital Specimen 01/21/2016 [facility]ITY OF Expires [facility] Crossmatch Red Blood [facility]IV[facility]ITY OF Cells [facility] Specimen Anatomical Collection Method Collection Time Receive d Time (Source) Location / / Volume Laterality Blood specimen 01/18/2016 7:30 AM 016 7:42 (specimen) CDT AM CDT Akash Maecdo MD LAB - BLOOD BANK TE ST ORDER Performing Organization Address City/State/ZIP Code Phon e Number [facility] [address] [place] [address] [facility] EKG 12 lead - pediatric (01/18/2016 7:18 AM CDT) [facility] gist Method Time Signature Interpretation ECG [...] (New Bag - Provider: Lelia Cuellar APRN ELECTROPHONIC ENGINEER)1120 (Stopped - Provider: Lelia Cuellar APRN CRNA) [...]
--- OUTSIDE RECORDS SUMMARY | 2022-04-10 10:28 | XMS_ITS | Encounter Summary ---
:2000 Author Organization [place] Address [address] [facility] [place] [address] Care Team Providers Name Role Phone Unavailable Primary Care Provider Unavailable Reason for Visit (Routine) - Closed Specialty Diagnoses / Procedures Referred By Contact Refer red To Contact Cardiology Procedures Zz Ur Peds Echo Lab [facility] PEDIATRIC CONGENITAL [address] [facility] [place] [address] Referral ID Status Reason Start Date Expiration Date Visits Requ ested Visits Authorized [id number] Closed 09/06/2016 09/06/2017 1 1 Encounter Details Date Type Department Care Team Description 09/06/2016 Hospital Encounter [facility] Echo/EKG Javier, Cordell Barajas, Hypoplastic left heart syndr ome; [address] MD Tachycardia with heart rate 100-120 beat s per minute [place] [phone] [address] [place] [address] Social History Tobacco Use Types Packs/Day Years [...] 07/27/2022 Ancillary Procedure Cardiology Cordell Juarez MD [address] [place], [place] [address] (Wo rk) 07/27/2022 Office Visit Cardiology Cordell Juarez MD [address] [place], [place] [address] (Arleen valdes) documented as of this encounter [...] PM CDT Narrative 09/07/2016 12:26 AM CDT [id number]^JAVIER^CORDELL^RYAN ?Study ID: [id number] ?[facility] ?[facility] ?[address] ?[place] [address] ? Pediatric Echocardiogram __ Name: JUDE BILLS [...] Procedure Note Kofi Swan MD - 09/07 [id number] [facility] [id number]^JAVIER^CORDELL^RYAN Study ID: [id number] [facility] [place] [address] Pediatric Echocardiogram __ Name: JUDE BILLS Marquis [...]
--- OUTSIDE RECORDS SUMMARY | 2022-04-10 10:29 | XMS_ITS | Encounter Summary ---
:2000 Author Organization [place] Address [address] [facility] [place] [address] Care Team Providers Name Role Phone Unavailable Primary Care Provider Unavailable Encounter Details Date Type Department Care Team Description 09/16/2014 Telephone [facility] Explorer Constantine Pandey rd, MD Pediatric Specialty Clinic [facility] [address] [address] [address] [facility] [address] [address] [facility] [place], [place] [address] [phone] Social History Tobacco Use Types Packs/Day Years [...] Ancillary Procedure Cardiology Cordell Juarez MD [address] [place], [place] [address] (Wo rk) 07/27/2022 Office Visit Cardiology Cordell Juarez MD [address] [place] [address] (Wo rk) documented as of this encounter Visit Diagnoses Not on filedocumented in this encounter
--- OUTSIDE RECORDS SUMMARY | 2022-04-10 10:29 | XMS_ITS | Encounter Summary ---
:2000 Author Organization [place] Address [facility] [place] [address] Care Team Providers Name Role Phone Unavailable Primary Care Provider Unavailable Encounter Details Date Type Department Care Team Description 01/13/2016 Orders Only [facility] Cordell Juarez, Emi plastic left heart syndrome (Primary Dx); Pediatric Specialty Tachycardia Clinic [address] [place] [address] [address] [place] [id number] [phone] Social History Tobacco Use Types Packs/Day Years [...] 07/27/2022 Ancillary Procedure Cardiology Cordell Juarez MD [address] [place] [address] [address] [place] [address] (Wo rk) 07/27/2022 Office Visit Cardiology Cordell Juarez MD [address] [place] [address] [address] [place] [address] (Wo rk) documented as of this encounter Visit Diagnoses Diagnosis Hypoplastic left heart syndrome - Primar y Tachycardia Tachycardia, unspecified documented in this encounter
--- OUTSIDE RECORDS SUMMARY | 2022-04-10 10:29 | XMS_ITS | Encounter Summary ---
:2000 Author Organization [place] Address [address] [place] [address]. [place] [address] Care Team Providers Name Role Phone Unavailable Primary Care Provider Unavailable Reason for Visit Reason Comments RECHECK pt here for a follow up on h ypoplastic left heart Encounter Details Date Type Department Care Team Description 03/09/2015 Office Visit [facility] Cordell Juarez, Hypo plastic left heart syndrome (Primary Dx); Pediatric Specialty MD S/P Fontan procedure; Clinic [address] HYPOPLASTIC LEFT HEART SYND [address] [address] [place] [address] [phone] Social History Tobacco Use Types Packs/Day Years [...] 03/09/2015 2:12 PM CD T Growth Chart: [facility] [place] 2] (Boys, 2-20 Years) documented in this encounter Patient Instructions Patient InstructionsSuKavitha jasmine MD - 03/09/2015 4:00 PM CDT You were seen today in the Pediatric Cardiology Clinic at [facility] Cardiology Providers [...] about today's visit, please call our clinic [phone] For after hours urgent needs call [phone] and ask to speak to the Pediatric Cardiology Physician acquisition specialist. For emergencies call [phone]. documented in this encounter Progress Notes LarryCordell MD - 03/09/2015 1:15 PM CDT Pediatric Cardiology Visit Patient: Jude Bills Date of : 2000 Age: 13 y 6 m Date of Visit: Mar 09, 2015 PCP: Deng Wallace MD Dear Deng Mata MD: I had the pleasure of seeing your patient, Jude Bills, in the Pediatric Cardiology Clinic at [facility] in [place] on Mar 09, 2015. 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 He underwent a central shunt, followed by a Fortino procedure and completion of a Fontan procedure at the [facility] in early childhood assistant. [facility]. [facility] [...] his coumadin, and gets INR's checked in [place] with a goal range of 2-2.5. Current Outpatient Prescriptions Medication ??? lisinopril (PRINIVIL,ZESTRIL) 10 MG tablet ??? warfarin (COUMADIN) 4 MG tablet ??? warfarin (COUMADIN) 2 MG tablet ??? dexmethylphenidate (FOCALIN XR) 15 MG 24 hr capsule ??? Loratadine (CLARITIN PO) ??? omeprazole (PRILOSEC) 20 MG capsule No current facility-administered medications for this visit. FH/SH: Jude and his family live in [place]. His mother is a nurse at [employer]. His height is 1.593 m (5' 2.7) [...] or concerns. Sincerely, Kavitha Mann M.D. Pediatric Figure Skater I have reviewed the clinical history, examined the patient, reviewed the relevant diagnostic studies, and discussed our findings and recommendations with Jude and his parents. I have reviewed and edited this note. Cordell Juarez M.D. Control Room Helper of Pediatrics Division of Pediatric Cardiology [facility] documented in this encounter Nursing Notes Melissa [...] Ancillary Procedure Cardiology Cordell Juarez MD [address] [id number] (Wo rk) 07/27/2022 Office Visit Cardiology Cordell Juarez MD [address] [address] (Wo rk) documented as of [...] athologist Signature IGG 1,210 695 - 1,620 [facility] mg/dL [facility] Specimen Anatomical Collection Method Collection Time Receive d Time (Source) Location / / Volume Laterality Blood specimen 03/09/2015 4:20 PM 015 4:35 (specimen) CDT PM CDT Kavitha Mann MD LAB - BLOOD ORDERABLES Performing Organization Address City/State/ZIP Code Phon e Number [facility] [address] [place] [address] [facility] (ABNORMAL) CBC with platelets differential (03/09/2015 4:20 PM CDT) [facility] gist Method Time Signature WBC 5.1 4.0 - [place] 11.0 [place] 10e9/L [facility] RBC Count 5.79 (H) 3.7 - 5.3 [place] 10e12/L [facility] Hemoglobin 16.8 (H) 11.7 - [place] 15.7 g/dL [facility] Hematocrit 48.4 (H) 35.0 - [place] 47.0 % [facility] MCV 84 77 - 100 [place] fl [facility] MCH 29.0 26.5 - [place] 33.0 pg [facility] MCHC 34.7 31.5 - [place] 36.5 g/dL [facility] RDW 14.0 10.0 - [place] 15.0 % [facility] Platelet Count 230 150 - 450 [place] [id number] [place] [address] Diff Method Automated [place] Method [facility] % Neutrophils 60.7 % [facility] % Lymphocytes 26.8 % [facility] % Monocytes 10.1 % [facility] % Eosinophils 1.8 % [facility] % Basophils 0.4 % [facility] % Immature 0.2 % [place] Granulocytes [facility] Absolute 3.1 1.3 - 7.0 [place] Neutrophil 10e9[facility] Absolute 1.4 1.0 - 5.8 [place] Lymphocytes [address] [place] [address] Absolute 0.5 0.0 - 1.3 [place] Monocytes [address] [place] [address] Absolute 0.1 0.0 - 0.7 [place] Eosinophils [address] [place] [address] Absolute 0.0 0.0 - 0.2 [place] Basophils [address] [place] [address] Abs Immature 0.0 0 - 0.4 [place] Granulocytes [address] [place] [address] Specimen Anatomical Collection Method Collection Time Receive d Time (Source) Location / / Volume Laterality Blood specimen 03/09/2015 4:20 PM 015 4:35 (specimen) CDT PM CDT Kavitha Mann MD LAB - BLOOD ORDERABLES Performing Organization Address City/State/ZIP Code Phon e Number M [facility] [address] [place], [place] [address] [facility] [address] [place], [place] [address] [place] [address] Antithrombin III (03/09/2015 4:20 PM CDT) Analysis Performed At Patho logist Time Signature Antithrombin III 109 85 - 135 % [facility] Chromogenic [facility] Specimen Anatomical Collection Method Collection Time Receive d Time (Source) Location / / Volume Laterality Blood specimen 03/09/2015 4:20 PM 015 4:35 (specimen) CDT PM CDT Kavitha Mann MD LAB - BLOOD ORDERABLES Performing Organization Address City/State/ZIP Code Phon e Number [facility] [address] [place] [address] [facility] (ABNORMAL) INR (03/09/2015 4:20 PM CDT) P athologist Signature INR 1.62 (H) 0.86 - 1.14 [facility] Specimen Anatomical Collection Method Collection Time Receive d Time (Source) Location / / Volume Laterality Blood specimen 03/09/2015 4:20 PM 015 4:40 (specimen) CDT PM CDT Kavitha Mann MD LAB - BLOOD ORDERABLES Performing Organization Address City/State/[facility] Phon e Number [facility] [address] [place] [address] [phone] Comprehensive metabolic panel (BMP + Alb, Alk Phos, ALT, AST, Total. Bili, TP) (03/09/2015 4:20 PM CDT) Patholo gist Method Time Signature Sodium 139 133 - 143 [place] mmol/L [facility] Potassium 4.2 3.4 - 5.3 [place] mmol/L [facility] Chloride 105 98 - 110 [place] mmol/L [facility] Carbon Dioxide 27 20 - 32 [place] mmol/L [facility] Anion Gap 7 3 - 14 [place] mmol/L [facility] Glucose 86 70 - 99 [place] mg/dL [facility] Urea Nitrogen 17 7 - 21 [place] mg/dL [facility] Creatinine 0.67 0.50 - [place] 1.00 [facility] mg/dL [facility] GFR Estimate GFR not calculated, patient <16 years old. mL/min/1. [place] Non GFR Calc 7m2 [facility] GFR Estimate If GFR not calculated, patient <16 years old. mL/min/1. [place] Black GFR Calc 7m2 [facility] Calcium 9.8 9.1 - [place] 10.3 [facility] mg/dL [facility] Bilirubin Total 1.2 0.2 - 1.3 [place] mg/dL [facility] Albumin 4.7 3.4 - 5.0 [place] g/dL [facility] Protein Total 8.0 6.8 - 8.8 [place] g/dL [facility] Alkaline 372 130 - 530 [place] Phosphatase U/L [facility] ALT 25 0 - 50 [place] U/L [facility] AST 25 0 - 35 [place] U/L [facility] Specimen Anatomical Collection Method Collection Time Receive d Time (Source) Location / / Volume Laterality Blood specimen 03/09/2015 4:20 PM 015 4:35 (specimen) CDT PM CDT Kavitha Mann MD LAB - BLOOD ORDERABLES Performing Organization Address City/State/ZIP Code Phon e Number [place] [address] [address] [place] [address] [facility] [address] [phone] Echo pediatric congenital (03/09/2015 2:48 PM CDT) Anatomical Region Laterality Modality Echocardiography Specimen (Source) Anatomical Location Collection Method / Collectio n Time Received Time / Laterality Volume Narrative 03/11/2015 8:36 AM CDT PEDIATRIC ECHOCARDIOGRAM [facility] ? Age: 801/31/2000 ??Wt: 112 lb ??Ht: 62.5 c m ?BSA:1.5 m2 ?BP: ?? [employer] ?? Bus Transportation Manager: raquel INDICATION: Double outlet right ventricl e, [...] aorta. There is no evidence of a jyyc-gy-ymbss shunt at atrial or great artery levels. There is a sdsm-rl-khzla shunt a cross the large ventricular septal defect. ?? Not Evaluated Pulmonary venous return Artemio Silva MD-Pager [phone] Cordell Juarez MD CV PEDS ECHO ORDERABLES documented in this encounter Visit Diagnoses Diagnosis HYPOPLASTIC LEFT HEART SYND - Primary 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 Other postprocedural status Hypoplastic left heart syndrome documented in this encounter
--- OUTSIDE RECORDS SUMMARY | 2022-04-10 10:29 | XMS_ITS | Encounter Summary ---
:2000 Author Organization [place] Address [facility] [place] [address] Care Team Providers Name Role Phone Unavailable Primary Care Provider Unavailable Reason for Visit (Routine) - Closed Specialty Diagnoses / Procedures Referred By Contact Refer red To Contact Cardiology Diagnoses [facility] [phone] [facility] order Larry to supervise José Rojo Electrocard Procedures CARDIAC STRESS TEST [address] [place] [phone] Phone: Fax: Referral ID Status Reason Start Date Expiration Date Visits Requ ested Visits Authorized [id number] Closed 05/20/2014 05/20/2015 1 1 Encounter Details Date Type Department Care Team Description 05/28/2014 Hospital Encounter [facility] Cordell Juarez, Atypical chest pain; Hospital Peds Single ventricle, heterotaxia syndrome Electrocardiology [address] [place] [phone] Social History Tobacco Use Types Packs/Day [...] Cardiology Cordell Juarez MD 2450 [facility] [address] [place] [address] (Wo rk) 07/27/2022 Office Visit Cardiology Cordell Juarez MD [facility]50 [facility] [address] [place] [address] (Wo rk) documented as of this encounter Procedures Procedure Name Priority Date/Time Associated Diagnosis Comme nts DESATURATION TEST - HIM 05/28/2014 12:00 AM SCAN MEDICAL LAB TECHNICIAN documented in this encounter Results DESATURATION TEST - HIM SCAN (05/28/2014 12:00 AM MEDICAL LAB TECHNICIAN) Specimen (Source) Anatomical Location Collection Method / Collectio n Time Received Time / Laterality Volume 05/28/2014 Narrative This result has an attachment that is no t available. Provider Scan PFT ORDERABLES documented in this encounter Visit Diagnoses Diagnosis Atypical chest pain Other chest pain Single ventricle, heterotaxia syndrome Other specified congenital anomalies documented in this encounter
--- OUTSIDE RECORDS SUMMARY | 2022-04-10 10:29 | XMS_ITS | Encounter Summary ---
:2000 Author Organization [place] Address [address] [place] [address]. [place] [address] Care Team Providers Name Role Phone Unavailable Primary Care Provider Unavailable Encounter Details Date Type Department Care Team Description 12/27/2015 Orders Only [facility] Cordell Juarez, S/P Fontan procedure [facility] Marie DUPREE (Primary Dx) [address] [place] [address] [place] [address] [place], [place] [phone] (Wo rk) Social History Tobacco Use Types [...] Ancillary Procedure Cardiology Cordell Juarez MD [address] [place] [phone] (Wo rk) 07/27/2022 Office Visit Cardiology Cordell Juarez MD [address] [place] [address] [place] [address] (Wo rk) documented as of this encounter [...] Fortino procedu re and completion 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 Amplatzer occluder clos ure of Fontan fenestration [...]
--- OUTSIDE RECORDS SUMMARY | 2022-04-10 10:29 | XMS_ITS | Encounter Summary ---
:2000 Author Organization [place] Address [address] [place] [address] Care Team Providers Name Role Phone Unavailable Primary Care Provider Unavailable Encounter Details Date Type Department Care Team Description 03/09/2015 Hospital Encounter [facility] LarryCordell , Hypoplastic left [place] [facility] heart syndrome [address] [place], [place] [address] [place], [place] [phone] [id number] Social History Tobacco Use Types Packs/Day Years [...] Ancillary Procedure Cardiology Cordell Juarez MD [address] [place] [id number] (Wo rk) 07/27/2022 Office Visit Cardiology Cordell Juarez MD [address] [place] [phone] (Wo rk) documented as of this encounter [...] athologist Signature IGG 1,210 695 - 1,620 [facility] mg/dL [facility] Specimen Anatomical Collection Method Collection Time Receive d Time (Source) Location / / Volume Laterality Blood specimen 03/09/2015 4:20 PM 015 4:35 (specimen) CDT PM CDT Kavitha Mann MD LAB - BLOOD ORDERABLES Performing Organization Address City/State/ZIP Code Phon e Number [facility] [address] [place], [place] [address] [place] [address] (ABNORMAL) CBC with platelets differential (03/09/2015 4:20 PM CDT) Patholo gist Method Time Signature WBC 5.1 4.0 - [place] 11.0 [facility] 10e9/[facility] RBC Count 5.79 (H) 3.7 - 5.3 [place] 10e12/L [facility] Hemoglobin 16.8 (H) 11.7 - [facility] 15.7 g/dL [facility] Hematocrit 48.4 (H) 35.0 - [facility] 47.0 % [facility] MCV 84 77 - 100 [facility] MCH 29.0 26.5 - [facility] 33.0 pg [facility] MCHC 34.7 31.5 - [place] 36.5 g/dL [facility] RDW 14.0 10.0 - [facility] 15.0 % [facility] Platelet Count 230 150 - 450 [place] 10e9/L [facility] Diff Method Automated [place] Method [facility] % Neutrophils 60.7 % [facility] % Lymphocytes 26.8 % [facility] % Monocytes 10.1 % [facility] % Eosinophils 1.8 % [facility] % Basophils 0.4 % [facility] % Immature 0.2 % [place] Granulocytes [facility] Absolute 3.1 1.3 - 7.0 [place] Neutrophil 10e9/L [facility] Absolute 1.4 1.0 - 5.8 [place] Lymphocytes 10e9/L [facility] Absolute 0.5 0.0 - 1.3 [place] Monocytes 10e9/L [facility] Absolute 0.1 0.0 - 0.7 [place] Eosinophils 10e9/L [facility] Absolute 0.0 0.0 - 0.2 [place] Basophils 10e9/[facility] Abs Immature 0.0 0 - 0.4 [place] Granulocytes [address] Specimen Anatomical Collection Method Collection Time Receive d Time (Source) Location / / Volume Laterality Blood specimen 03/09/2015 4:20 PM 015 4:35 (specimen) CDT PM CDT Kavitha Mann MD LAB - BLOOD ORDERABLES Performing Organization Address City/[facility]/ZIP [facility] Phon e Number [facility] [address] [place] [address] [facility] [address] [phone] Antithrombin III (03/09/2015 4:20 PM CDT) [facility] Time Signature Antithrombin III 109 85 - 135 % [facility] Chromogenic [facility] Specimen Anatomical Collection Method Collection Time Receive d Time (Source) Location / / Volume Laterality Blood specimen 03/09/2015 4:20 PM 015 4:35 (specimen) CDT PM CDT Kavitha Mann MD LAB - BLOOD ORDERABLES Performing Organization Address City/State/ZIP Code Phon e Number [facility] [address] [place] [address] [facility] Comprehensive metabolic panel (BMP + Alb, Alk Phos, ALT, AST, Total. Bili, TP) (03/09/2015 4:20 PM CDT) Patholo gist Method Time Signature Sodium 139 133 - 143 [place] mmol/L [facility] Potassium 4.2 3.4 - 5.3 [place] mmol/[facility] Chloride 105 98 - 110 [place] mmol/L [facility] Carbon Dioxide 27 20 - 32 [place] mmol/L [facility] Anion Gap 7 3 - 14 [place] mmol/L [facility] Glucose 86 70 - 99 [place] mg/dL [facility] Urea Nitrogen 17 7 - 21 [place] mg/dL [facility] Creatinine 0.67 0.50 - [place] 1.00 [facility] mg/dL [facility] GFR Estimate GFR not calculated, patient <16 years old. mL/min/1. [place] Non GFR Calc 7m2 [facility] GFR Estimate If GFR not calculated, patient <16 years old. mL/min/1. [place] Black GFR Calc 7m2 [facility] Calcium 9.8 9.1 - [place] 10.3 [facility] mg/dL [facility] Bilirubin Total 1.2 0.2 - 1.3 [place] mg/dL [facility] Albumin 4.7 3.4 - 5.0 [place] g/dL [facility] Protein Total 8.0 6.8 - 8.8 [place] g/dL [facility] Alkaline 372 130 - 530 [place] Phosphatase U/L [facility] ALT 25 0 - 50 [place] U/L [facility] AST 25 0 - 35 [place] U/L [facility] Specimen Anatomical Collection Method Collection Time Receive d Time (Source) Location / / Volume Laterality Blood specimen 03/09/2015 4:20 PM 015 4:35 (specimen) CDT PM CDT Kavitha Mann MD LAB - BLOOD ORDERABLES Performing Organization Address City/State/ZIP Code Phon e Number M [facility] [address] [place], [place] [address] [facility] [address] [place], [place] [address] [place] [address] documented in this encounter 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
--- OUTSIDE RECORDS SUMMARY | 2022-04-10 10:29 | XMS_ITS | Encounter Summary ---
:2000 Author Organization [place] Address [facility] [place] [address] Care Team Providers Name Role Phone Unavailable Primary Care Provider Unavailable Reason for Visit Reason Onset Date Comments Refill Request 02/22/2015 Encounter Details Date Type Department Care Team Description 02/22/2015 Refill [facility] Pediatric Cordell Juarez MD Refill Request Specialty Clinic [place] [id number] [address] [facility] [place] [address] [facility] [place] [address] [phone] Social History Tobacco Use Types Packs/Day Years [...] Ancillary Procedure Cardiology Cordell Juarez MD [address] [place], [place] [address] [place] [address] (Wo rk) 07/27/2022 Office Visit Cardiology Larry, Cordell skelton MD [address] [place] [address] (Wo rk) documented as of this encounter Visit Diagnoses Diagnosis 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
--- OUTSIDE RECORDS SUMMARY | 2022-04-10 10:29 | XMS_ITS | Encounter Summary ---
:2000 Author Organization [place] Address [address] [facility] [place] [address] Care Team Providers Name Role Phone Unavailable Primary Care Provider Unavailable Reason for Visit Reason Onset Date Comments Fever 08/04/2014 Encounter Details Date Type Department Care Team Description 08/04/2014 Telephone [facility] Explorer Kathy Wells, Fever Pediatric Specialty Clinic [place] [id number] [address] [facility] [place] [phone] Social History Tobacco Use Types Packs/Day Years [...] Roland Wells MD, A Fellow, Pediatric Cardiology [employer] PROFESSION[employer] documented in this encounter Plan of Treatment Upcoming Encounters Date Type Specialty Care Team Description 07/27/2022 Ancillary Procedure Cardiology Cordell Juarez MD 2450 [facility] [place] [address] (Wo rk) 07/27/2022 Office Visit Cardiology Cordell Juarez MD 2450 [facility] [address] [place] [address] (Wo rk) documented as of this encounter Visit Diagnoses Not on filedocumented in this encounter
--- OUTSIDE RECORDS SUMMARY | 2022-04-10 10:29 | XMS_ITS | Encounter Summary ---
:2000 Author Organization [place] Address [address] [facility] [place] [address] Care Team Providers Name Role Phone Unavailable Primary Care Provider Unavailable Reason for Visit (Routine) - Closed Specialty Diagnoses / Procedures Referred By Contact Refer red To Contact Cardiology Diagnoses hypoplastic left heart Zz Rh Echocardiography Procedures [facility] [address] [place], [place] [address] Phone: Referral ID Status Reason Start Date Expiration Date Visits Requ ested Visits Authorized [id number] Closed 11/15/2015 11/14/2016 1 1 Encounter Details Date Type Department Care Team Description 11/23/2015 Hospital Encounter [place] Cordell Ng, Hypoplastic left Cardiopulmonary MD heart syndrome [address] [facility] [address] [place], [place] [address] [place], [place] [phone] [address] Social History Tobacco Use Types Packs/Day Years [...] Ancillary Procedure Cardiology Cordell Juarez MD [address] [place] [address] [address] [address] (Wo rk) 07/27/2022 Office Visit Cardiology Cordell Juarez [facility] [address] [facility] [address] [place], [place] [phone] (Wo rk) documented as of this encounter [...] AM CDT Interpretation Summary ? Study ID: [id number] ? [facility] ?Echocardiography Laboratory ?[address] ? [place] [address] ?P ediatric Echocardiogram Name: JUDE BILLS Study [...] MD - 11/23/2015 Interpretation Summary Study ID: [id number] [facility] Echocardiography Laboratory [address] [facility]. [place] [address] Pediatric Echocardiogram Name: JUDE BILLS Study Date: 11/23/2015 10:07 AM Patient Location: [facility] Age: 15 yrs : 2000 BP: [...]
--- OUTSIDE RECORDS SUMMARY | 2022-04-10 10:29 | XMS_ITS | Encounter Summary ---
:2000 Author Organization [place] Address [facility] [place] [address] Care Team Providers Name Role Phone Unavailable Primary Care Provider Unavailable Reason for Visit Reason Comments RECHECK Here for holter Encounter Details Date Type Department Care Team Description 11/11/2015 Office Visit [facility] Larry, Cordell Barajas, Tach ycardia with Pediatric Specialty MD heart rate 100-[address] AV beats per minute [address] [address] (Primary Dx) [address] [place] [address] [phone] Social History Tobacco Use Types Packs/Day Years [...] Luke's labs that were done at the [facility] on 11/09/15 looked good,according to Dr. Juarez. Delicia Izaguirre RN - 11/11/2015 11:25 AM CDT Patients mom came in today to pepper picker a holter monitor for Luke. Mom is a RN and works at clinic in [place]. Mom was given instructions on how to place holter. and stated she feels comfortable placing holter on patient this weekend. Mom stated that she will bring back on Saturday. Delicia Izaguirre RN documented in this encounter Plan of Treatment Upcoming Encounters Date Type Specialty Care Team Description 07/27/2022 Ancillary Procedure Cardiology Cordell Juarez MD [address] [place] [address] (Arleen valdes) 07/27/2022 Office Visit Cardiology Cordell Juarez MD [address] [place] [address] (Arleen valdes) documented as of this encounter [...]
--- OUTSIDE RECORDS SUMMARY | 2022-04-10 10:29 | XMS_ITS | Encounter Summary ---
:2000 Author Organization [place] Address [facility] [place] [address] Care Team Providers Name Role Phone Unavailable Primary Care Provider Unavailable Reason for Visit (Routine) - Closed Specialty Diagnoses / Procedures Referred By Contact Refer red To Contact Cardiology Diagnoses [address] Zz Rh Echocardiography Procedures [facility] PEDIATRIC CONGENITAL [address] [place], [place] [address] Phone: Referral ID Status Reason Start Date Expiration Date Visits Requ ested Visits Authorized [id number] Closed 03/08/2015 03/07/2016 1 1 Encounter Details Date Type Department Care Team Description 03/09/2015 Hospital Encounter [place] Cordell Ng, Hypoplastic left Cardiopulmonary MD heart syndrome [address] [facility] [address] [place], [place] [phone] [place], [place] [phone] Social History Tobacco Use Types Packs/Day Years [...] 07/27/2022 Ancillary Procedure Cardiology Cordell Juarez MD [address] [place], [place] [address] (Wo rk) 07/27/2022 Office Visit Cardiology Cordell Juarez MD [address] [place] [address] (Wo rk) documented as of this encounter [...] Narrative 03/11/2015 8:36 AM CDT PEDIATRIC ECHOCARDIOGRAM [facility] ? Age: 801/31/2000 ??Wt: 112 lb ??Ht: 62.5 c m ?BSA:1.5 m2 ?BP: ?? Xcelera ?? Steam Shovel Operator: raquel INDICATION: Double outlet right ventricl e, [...] aorta. There is no evidence of a wjly-ue-ndbpo shunt at atrial or great artery levels. There is a tkua-ru-ynllr shunt a cross the large ventricular septal defect. ?? Not Evaluated Pulmonary venous return Artemio Silva MD-Pager [phone] Cordell Juarez MD CV PEDS ECHO ORDERABLES documented in this encounter 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
--- OUTSIDE RECORDS SUMMARY | 2022-04-10 10:29 | XMS_ITS | Encounter Summary ---
:2000 Author Organization [place] Address [address] [place] [address]. [place] [address] Care Team Providers Name Role Phone Unavailable Primary Care Provider Unavailable Encounter Details Date Type Department Care Team Description 08/16/2015 Orders Only [facility] Cordell Juarez Tach ycardia (Primary Pediatric Specialty Dx) Clinic [address] [address] [address] [place] [phone] Social History Tobacco Use Types Packs/Day Years [...] Ancillary Procedure Cardiology Cordell Juarez MD [address] [place], [place] [id number] [place] [address] (Wo rk) 07/27/2022 Office Visit Cardiology Cordell Juarez MD [address] [place], [place] [id number] [place] [address] (Wo rk) documented as of this encounter [...]
--- OUTSIDE RECORDS SUMMARY | 2022-04-10 10:29 | XMS_ITS | Encounter Summary ---
:2000 Author Organization [place] Address [facility] [place] [address] Care Team Providers Name Role Phone Unavailable Primary Care Provider Unavailable Reason for Visit Reason Onset Date Comments Refill Request 07/23/2014 Encounter Details Date Type Department Care Team Description 07/23/2014 Refill [facility] Pediatric Cordell Juarez MD Refill Request Specialty Clinic [place] [id number] [facility] [place] [address] [facility] [address] [phone] Social History Tobacco Use Types Packs/Day Years [...] Ancillary Procedure Cardiology Cordell Juarez MD [address] [place], [place] [address] [place] [address] (Wo rk) 07/27/2022 Office Visit Cardiology Larry, Cordell skelton MD [address] [place] [address] (Wo rk) documented as of this encounter Visit Diagnoses Diagnosis 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
--- OUTSIDE RECORDS SUMMARY | 2022-04-10 10:29 | XMS_ITS | Encounter Summary ---
:2000 Author Organization [place] Address [address] [facility] [place] [address] Care Team Providers Name Role Phone Unavailable Primary Care Provider Unavailable Reason for Referral - Closed Specialty Diagnoses / Procedures Referred By Contact Refer red To Contact Diagnoses SVT (supraventricular tachycardia) (H) Cordell Juarez MD Procedures EKG 12 Lead - Pediatric [address] [place], [place] [id number] [place], [place] [address] Referral ID Status Reason Start Date Expiration Date Visits Requ ested Visits Authorized [id number] Closed 12/23/2015 12/22/2016 1 1 Encounter Details Date Type Department Care Team Description 12/23/2015 Orders Only [facility] Cordell Juarez SVT (supraventricular [address] [facility] tachycardia) (H) [place], [place] [address] [facility] (Prima ry Dx) [phone] [facility] [phone] [place], [place] [phone] (Wo rk) Social History Tobacco Use Types [...] 07/27/2022 Ancillary Procedure Cardiology Cordell Juarez MD [address] [facility] [address] [place], [place] [address] (Wo rk) 07/27/2022 Office Visit Cardiology Cordell Juarez MD [address] [facility] [address] [place], [place] [phone] (Wo rk) documented as of this encounter Visit Diagnoses Diagnosis SVT (supraventricular tachycardia) (H) - Primary Other specified cardiac dysrhythmias documented in this encounter
--- OUTSIDE RECORDS SUMMARY | 2022-04-10 10:29 | XMS_ITS | Encounter Summary ---
:2000 Author Organization [place] Address [address] [place] [address]. [place] [address] Care Team Providers Name Role Phone Unavailable Primary Care Provider Unavailable Reason for Visit Auth/Cert Specialty Diagnoses / Procedures Referred By Contact Refer red To Contact Surgery Diagnoses Double Outleft Right Ventricle, Left Ventricle Hypoplastic Ur Periop Procedures HEART CATH CHILD EP STUDY CHILD EP ABLATION CHILD [address] [place] [phone] Phone: Fax: Referral ID Status Reason Start Date Expiration Date Visits Requ ested Visits Authorized [id number] 1 1 Encounter Details Date Type Department Care Team Description 01/18/2016 Anesthesia Event [facility] Esme Dacosta MD [address] [facility] [address] [place], [place] [phone] PeriOp Services Lelia Cuellar APRN [place] [id number] [place] [address] [place] [phone] Anesthesia Record Procedure Summary Procedure Name [...] Fortino now with Fenestrated Fontan Done at [place] ??? 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 Esophageal reflux ??? Congenital anomalies of spleen Polysplenia Past Surgical History Procedure Laterality Date ??? C repr by modified fontan fenestrated fontan ??? 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 ? 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 All questions were answered and there was agreement to proceed. Esme Eubanks MD Staff Anesthesiologist [phone] 01/18/2016 7:00 AM documented in this encounter [...] 07/27/2022 Ancillary Procedure Cardiology [facility] [address] [facility] [place], [place] [address] (Wo rk) 07/27/2022 Office Visit Cardiology [facility] [address] [address] (Wo rk) documented as of this encounter [...]
--- OUTSIDE RECORDS SUMMARY | 2022-04-10 10:29 | XMS_ITS | Encounter Summary ---
:2000 Author Organization [address] [place] [address] Care Team Providers Name Role Phone Unavailable Primary Care Provider Unavailable Encounter Details Date Type Department Care Team Description 03/03/2015 Telephone [facility] Pediatric Cordell Juarez MD Specialty Clinic [address] [address] [facility] [place] [address] [place] [address] [phone] Social History Tobacco Use Types Packs/Day Years [...] Cordell Juarez MD [address] [place] [address] (Arleen valdes) 07/27/2022 Office Visit Cardiology Cordell Juarez MD [address] [place] [address] (Arleen valdes) documented as of this encounter Visit Diagnoses Not on filedocumented in this encounter
--- OUTSIDE RECORDS SUMMARY | 2022-04-10 10:29 | XMS_ITS | Encounter Summary ---
:2000 Author Organization [place] Address [address] [place] [address]. [place] [address] Care Team Providers Name Role Phone Unavailable Primary Care Provider Unavailable Encounter Details Date Type Department Care Team Description 11/24/2015 Orders Only [facility] Jennifer Tyler, KIMO Hete rotaxy; Pediatric Specialty Hypoplas tic left heart syndrome Clinic [place] [address] [facility] [address] [place] [address] Social History Tobacco Use Types [...] Ancillary Procedure Cardiology Cordell Juarez MD [facility] [address] [address] (Wo rk) 07/27/2022 Office Visit Cardiology Cordell Juarez MD [address] [facility] [place], [place] [id number] (Arleen rk) documented as of this encounter Procedures Procedure Name Priority Date/Time Associated Diagnosis Comme nts ZIO PATCH PEDS Routine 11/30/2015 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
--- OUTSIDE RECORDS SUMMARY | 2022-04-10 10:29 | XMS_ITS | Encounter Summary ---
:2000 Author Organization [place] Address [address] [place] [address] Care Team Providers Name Role Phone Unavailable Primary Care Provider Unavailable Reason for Visit Reason Comments Fever Auth/Cert - Closed Specialty Diagnoses / Procedures Referred By Contact Refer red To Contact Intensive Care Diagnoses Tachycardia Tachycardia Ur Unit 3 Peds Cv Icu [address] [place] [address] Phone: Referral ID Status Reason Start Date Expiration Date Visits Requ ested Visits Authorized [id number] Closed 08/05/2014 02/01/2015 1 1 Encounter Details Date Type Department Care Team Description 08/05/[address] [facility] LarryCordell , Fever (Primary Dx); Pediatric Cardiovascular MD Tachycardia; ICU [address] S/P Fontan procedure; [facility] [address] Hypoplastic left heart syndrome; [place], [place] [address] [place] Tachycardia with 100 - 120 b eats per minute; [phone] [id number] HYPOPLASTIC LEFT HEART SYND [phone] (Wo rk) Social History Tobacco Use Types [...] Comments Blood Pressure 106/79 08/05/2014 12:00 PM SECOND OPERATOR Pulse 83 08/05/2014 3:00 AM SECOND OPERATOR Temperature 37 ??C (98.6 ??F) 08/05/2014 12:00 PM SECOND OPERATOR Respiratory Rate 18 08/05/2014 12:00 PM SECOND OPERATOR Oxygen Saturation 96% 08/05/2014 12:00 PM SECOND OPERATOR Inhaled Oxygen Concentration - - Weight 48.9 kg (107 lb 12.9 oz) 08/05/2014 12:17 AM SECOND OPERATOR Height - - Body Mass Index - [...] Care Physician Deng Wallace MD Home clinic: [facility] Physical Exam Vital Signs with Ranges Temp: [...] scoliosis. Time Spent on This Encounter I, Cordell Juarez, personally saw the patient today and [...] and recommendations outlined above. Cordell Juarez M.D. [facility] Division of Pediatric Cardiology [facility] ND OPERATOR documented in this encounter Medications at [...] discharge. Pt met observation goals to discharge. ND OPERATOR documented in this encounter H&P Notes Gayathri [...] to being on coumadin Patient staffed with sr. manager corporate communications Roland Caballero. Monik Whitley, PGY3 Chief Complaint: Fever History is obtained from the patient's parent(s) History of Present Illness: This patient is a 14 year old male who presents with headache, fever, and sore throat. He developed a headache 08/03 that was mild. Then 08/04 it worsened; he went to the nurse's office at school. He still went to hinduism in the evening. Currently his headache is [...] Fortino now with Fenestrated Fontan Done at [place] ??? 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 Esophageal reflux ??? Congenital [...] with previous EKGs Chest xray is pending. ND OPERATOR documented in this encounter ED Notes Shashi [...] His temperature was not taken until after hinduism, when mom thought he felt warm. His [...] Fortino now with Fenestrated Fontan Done at [place] ??? 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 Esophageal reflux ??? Congenital [...] XR Chest 2 Views (Results Pending) Per residential nurse --> No focal airspace opacity Results for [...] rapid strep and flu: Discussed patient with sr. manager corporate communications, Dr. Wells. Due to tachycardia, obtained EKG, [...] due to preload dependence. --Admit to Pediatric [place] Team for observation --CRP, CBC, CXR, EKG, INR ordered and pending --No nsaids, due to warfarin therapy --Cardiology team to determine further care I have reviewed the nursing notes. I have reviewed the findings, diagnosis, plan and need for follow up with the patient. Current Discharge Medication List Final diagnoses: Tachycardia 08/04/2014 [facility] EMERGENCY DEPARTMENT Yun Lucio MD PL-2 Pager [phone] This data was collected with the resident [...] Nimesh Vickers Alan Howard, MD 08/05/14 0625 ND OPERATOR Cynthia Gloria RN - 08/05/2014 12:19 AM CST Pt with fever to 103 at home treated with tylenol that did not decrease fever much. Pt only complaint is a headache. ND OPERATOR documented in this encounter Miscellaneous Notes Utilization [...] nurse's office at school.He still went to hinduism in the evening. Currently his headache is [...] 6, section 70.4. Sincerely, Luba Merchant MD Sap Bpc Architect, Utilization Review/ Case Management [facility] Admission Status; Secondary Review Determination Office [phone] Deanne [phone] [facility] - Mary Kay Curiel [...] to monitor and notify MD with changes. ND OPERATOR documented in this encounter Plan of Treatment Upcoming Encounters Date Type Specialty Care Team Description 07/27/2022 Ancillary Procedure Cardiology Cordell Juarez MD [address] [place] [phone] (Wo rk) 07/27/2022 Office Visit Cardiology Cordell Juarez MD [address] [place] [phone] (Wo rk) documented as of this encounter Procedures Procedure Name Priority Date/Time Associated Comments Diagnosis XR CHEST 2 VIEWS STAT 08/05/2014 3:44 AM Resul ts for this SECOND OPERATOR procedure are i n the results section. EKG 12-LEAD, TRACING STAT 08/05/2014 3:15 AM R esults for this ONLY SECOND OPERATOR procedure are i n the results section. MRSA MSSA PCR, NASAL Routine 08/05/2014 3:00 AM Tachycardia R esults for this SWAB SECOND OPERATOR procedure are i n the results section. CBC WITH PLATELETS & STAT 08/05/2014 2:35 AM Tachycardia R esults for this DIFFERENTIAL SECOND OPERATOR procedure are i n the results section. INR STAT 08/05/2014 2:35 AM Tachycardia Results f or this SECOND OPERATOR procedure are i n the results section. CRP INFLAMMATION STAT 08/05/2014 2:35 AM Tachycardia Resul ts for this SECOND OPERATOR procedure are i n the results section. COMPREHENSIVE STAT 08/05/2014 2:35 AM Tachycardia Results for this METABOLIC PANEL SECOND OPERATOR procedure ar e in the results section. BLOOD CULTURE STAT 08/05/2014 2:35 AM Tachycardia Results for this SECOND OPERATOR procedure are i n the results section. INFLUENZA A/B ANTIGEN STAT 08/05/2014 1:02 AM Results for this SECOND OPERATOR procedure are i n the results section. RAPID STREP GROUP A STAT 08/05/2014 12:56 Resu lts for this SCREEN POCT AM SECOND OPERATOR procedure are i n the results section. BETA HEMOLYTIC STREP STAT 08/05/2014 12:15 Tachycardia Res ults for this GROUP A CULTURE AM SECOND OPERATOR procedure ar e in the results section. documented in this encounter Results XR Chest 2 Views (08/05/2014 3:44 AM SECOND OPERATOR) Anatomical Region Laterality Modality Chest Computed Radiography Specimen (Source) Anatomical Location Collection Method / Collectio n Time Received Time / Laterality Volume Impressions 08/05/2014 7:31 AM SECOND OPERATOR Impression: Stable postoperative chest. No acute pulmonary disease. TAMMI CORTEZ MD Narrative 08/05/2014 7:31 AM SECOND OPERATOR Exam: 2 views of the chest. History: [...] Monik Garcia MD IMG DIAGNOSTIC IMAGING [facility] EKG 12 lead (08/05/2014 3:15 AM SECOND OPERATOR) [facility] gist Method Time Signature Interpretation ECG Click View RADIOLOGY Image link RESULTS to view waveform and result Specimen (Source) Anatomical Collection Method Collection Time Re ceived Time Location / / Volume Laterality 08/05/2014 3:15 AM SECOND OPERATOR Yun Kim MD ECG ORDERABLES Performing Organization Address City/State/ZIP Code Phon e Number RADIOLOGY RESULTS Methicillin Resistant Staph Aureus PCR (08/05/2014 3:00 AM SECOND OPERATOR) Component Value Ref Test Analysis Performed At [facility] Range Method Time Signature Specimen Nares [facility] Methicillin Negative NEG [facility] Resist/Sens S. MRSA Negative: SA Negative ? ?MRSA and Staphylococcus aureus target DNA not [place] MEDICAL aureus PCR detected, presumed negative for MRSA and SA colonization or the number of [facility] bacteria present may be below the limit of detection for the assay. FDA BANK approved assay performed using [employer] GeneXpert(R) real-ti me PCR. Specimen Anatomical Collection Method Collection Time Receive d Time (Source) Location / / Volume Laterality Swab from nasal 08/05/2014 3:00 AM 2014 3:28 sinus (specimen) SECOND OPERATOR AM SECOND OPERATOR Rachelle Yoder MD LAB - MICRO GENERAL ORDERAB LES Performing Organization Address City/State/ZIP Code Phon e Number [facility] [address] [place] [address] [facility] Blood culture, one site (08/05/2014 2:35 AM SECOND OPERATOR) [facility] Method Time Signature Specimen Blood U OF [facility] Right Arm [facility] Culture Micro No growth [facility] Micro Report FINAL [facility] 08/11/2014 [facility] Specimen Anatomical Collection Method Collection Time Receive d Time (Source) Location / / Volume Laterality Blood specimen VENOUS BLOOD / 08/05/2014 2:35 AM 08/05 2:41 (specimen) Unknown SECOND OPERATOR AM SECOND OPERATOR Shashi Beavers MD LAB - MICRO GENERAL ORDERABL ES Performing Organization Address City/State/ZIP Code Phon e Number [facility] [address] [place] [address] [facility] (ABNORMAL) INR (08/05/2014 2:35 AM SECOND OPERATOR) athologist Signature INR 1.46 (H) 0.86 - 1.14 [facility] Specimen Anatomical Collection Method Collection Time Receive d Time (Source) Location / / Volume Laterality Blood specimen 08/05/2014 2:35 AM 015 2:40 (specimen) SECOND OPERATOR AM SECOND OPERATOR Yun Kim MD LAB - BLOOD ORDERA BLES Performing Organization Address City/State/ZIP Code Phon e Number [facility] (ABNORMAL) Comprehensive metabolic panel (08/05/2014 2:35 AM SECOND OPERATOR) athologist Signature Sodium 134 133 - [address] [facility] mmol/L [facility] Potassium 3.8 3.4 - 5.[address] [facility] mmol/L [facility] Chloride 106 98 - [address] [facility] mmol/L [facility] Carbon Dioxide 20 20 - [address] [facility] mmol/L [facility] Anion Gap 8 3 - [address] [facility] mmol/L [facility] Glucose 119 (H) 70 - [address] [facility] mg/dL [facility] Comment: Effective 01/13/2014, the reference range for this assay has changed to reflect new instrumentation/methodology. Urea Nitrogen 20 7 - 21 mg/dL [facility] Comment: Effective 01/13/2014, the reference range for this assay has changed to reflect new instrumentation/methodology. Creatinine 0.67 0.39 - 0.73 mg/dL [facility] GFR Estimate GFR not calculated, patient <16 years old. mL/min/1.7m2 [facility] Non GFR Calc [facility] GFR Estimate If Black GFR not calculated, patient <16 years old. mL/m in/1.7m2 [facility] GFR Calc [facility] Calcium 8.2 (L) 9.1 - 10.3 mg/dL [facility] Comment: Effective 01/13/2014, the reference range for this assay has changed to reflect new instrumentation/methodology. Bilirubin Total 1.1 0.2 - 1.3 mg/dL U OF [facility] Albumin 3.9 3.4 - 5.0 g/dL [facility] Protein Total 6.8 6.8 - 8.8 g/dL [facility] Alkaline Phosphatase 472 130 - 530 U/L [facility] ALT 25 0 - 50 U/L [facility] AST 25 0 - 35 U/L [facility] Specimen Anatomical Collection Method Collection Time Receive d Time (Source) Location / / Volume Laterality Blood specimen 08/05/2014 2:35 AM 015 2:40 (specimen) SECOND OPERATOR AM SECOND OPERATOR Yun Kim MD LAB - BLOOD ORDERA BLES Performing Organization Address City/State/ZIP Code Phon e Number [facility] CRP inflammation (08/05/2014 2:35 AM SECOND OPERATOR) P athologist Signature CRP Inflammation 3.0 0.0 - 8.0 U OF mg/L [facility] Specimen Anatomical Collection Method Collection Time Receive d Time (Source) Location / / Volume Laterality Blood specimen 08/05/2014 2:35 AM 015 2:40 (specimen) SECOND OPERATOR AM SECOND OPERATOR Yun Kim MD LAB - BLOOD ORDERA BLES Performing Organization Address City/State/ZIP Code Phon e Number [facility] (ABNORMAL) CBC with platelets differential (08/05/2014 2:35 AM SECOND OPERATOR) Patholo gist Method Time Signature WBC 13.4 (H) 4.0 - U OF 11.0 [facility] 10e9/L [facility] RBC Count 5.13 3.7 - 5.3 U OF M 10e12/L [facility] Hemoglobin 14.5 11.7 - U OF 15.7 g/dL [facility] Hematocrit 44.0 35.0 - U OF 47.0 % [facility] MCV 86 77 - 100 U OF M fl [facility] MCH 28.3 26.5 - U OF M 33.0 pg [facility] MCHC 33.0 31.5 - U OF M 36.5 g/dL [facility] RDW 13.9 10.0 - U OF M 15.0 % [facility] Platelet Count 156 150 - 450 U OF M 10e9/L [facility] Diff Method Automated U OF M Method [facility] % Neutrophils 83.6 % U OF M [facility] % Lymphocytes 7.6 % [facility] % Monocytes 8.2 % [facility] % Eosinophils 0.2 % [facility] % Basophils 0.1 % [facility] % Immature 0.3 % U OF M Granulocytes [facility] Absolute 11.2 (H) 1.3 - 7.0 U OF M Neutrophil 10e9/L [facility] Absolute 1.0 1.0 - 5.8 U OF M Lymphocytes 10e9/L [facility] Absolute 1.1 0.0 - 1.3 U OF M Monocytes 10e9/L [facility] Absolute 0.0 0.0 - 0.7 U OF M Eosinophils 10e9/L [facility] Absolute 0.0 0.0 - 0.2 U OF M Basophils 10e9/L [facility] Abs Immature 0.0 0 - 0.4 U OF M Granulocytes 10e9/L [facility] Specimen Anatomical Collection Method Collection Time Receive d Time (Source) Location / / Volume Laterality Blood specimen 08/05/2014 2:35 AM 015 2:40 (specimen) SECOND OPERATOR AM SECOND OPERATOR Yun Kim MD LAB - BLOOD ORDERA BLES Performing Organization Address City/State/ZIP Code Phon e Number [facility] Influenza A/B antigen (08/05/2014 1:02 AM SECOND OPERATOR) Component Value Ref Test Analysis Performed At [facility] Range Method Time Signature Influenza A/B Nasopharyngeal U OF M Agn Specimen [facility] Influenza A Negative NEG [facility] Influenza B Negative NEG [facility] results must be correlated with clinical data. If ne cessary, results [place] MEDICAL should be confirmed by a molecular assay or viral culture. [facility] Specimen (Source) Anatomical Collection Method Collection Time Re ceived Time Location / / Volume Laterality Specimen from 08/05/2014 1:02 08/05/2014 nasopharyngeal AM SECOND OPERATOR 1:06 AM SECOND OPERATOR structure (specimen) Yun Kim MD LAB - MICRO GENERA L ORDERABLES Performing Organization Address City/State/ZIP Code Phon e Number [address] [address] [facility] U OF M [facility] Rapid strep group A screen POCT (08/05/2014 12:56 AM SECOND OPERATOR) P athologist Signature Rapid Strep A Negative neg Screen Internal QC OK Yes Specimen (Source) Anatomical Collection Method Collection Time Re ceived Time Location / / Volume Laterality Specimen from 08/05/2014 12:56 throat (specimen) AM SECOND OPERATOR Yun Kim MD LAB - ENTER/EDIT P OCT Beta strep group A culture (08/05/2014 12:15 AM SECOND OPERATOR) Component Value Ref Test Analysis Performed At Patholo gist Range Method Time Signature Specimen Throat [facility] Culture Micro No Beta INFECTIOUS Streptococcus DISEASE isolated DIAGNOSTIC LABORATORY Micro Report FINAL 08/07/2014 INFECTIOUS Status DISEASE DIAGNOSTIC LABORATORY Specimen Anatomical Location / Collection Method Collection Jordon e Received Time (Source) Laterality / Volume Specimen from NASOPHARYNGEAL 08/05/2014 12:15 08/05/19 15 throat STRUCTURE / Unknown AM SECOND OPERATOR 12:57 AM SECOND OPERATOR (specimen) Yun Kim MD LAB - MICRO GENERA L ORDERABLES Performing Organization Address City/State/ZIP Code Phon e Number INFECTIOUS DISEASES [address] [place] [address] DIAGNOSTIC LABORATORY, [facility] INFECTIOUS DISEASE [address] [place] [address], [facility] DIAGNOSTIC LABORATORY documented in [...] (TYLENOL) tablet 650 Given 08/05/2014 9:36 AM SECOND OPERATOR 650 mg mg 650 mg, Oral, EVERY [...] XR) 24 hr capsule Given 9:36 AM SECOND OPERATOR 15 mg 15 mg 15 mg, Oral, DAILY, First dose on Suze 08/05/14 at 0800 lisinopril (PRINIVIL,ZESTRIL) tablet 10 mg Given 08/05/2014 9:36 AM SECOND OPERATOR 10 mg 10 mg, Oral, DAILY, First dose on Suze 08/05/14 at 0800 omeprazole (priLOSEC) capsule 20 mg Given 08/05/2014 9:36 AM SECOND OPERATOR 20 mg 20 mg, Oral, DAILY, First dose on Suze 08/05/14 at 0800 documented in this encounter Active and Recently Administered Medications Times are shown in SECOND OPERATOR. Scheduled Medication Order 08/03/2014 08/04/2014 08/05/2014 dexmethylphenidate [...]
--- OUTSIDE RECORDS SUMMARY | 2022-04-10 10:29 | XMS_ITS | Encounter Summary ---
:2000 Author Organization [address] [place] [address] Care Team Providers Name Role Phone Unavailable Primary Care Provider Unavailable Encounter Details Date Type Department Care Team Description 09/28/2015 Office Visit [facility] Cordell Juarez, Tach ycardia with heart rate 100-120 beats per minute (Primary Dx); Pediatric Specialty HYPOPLASTIC LEFT HEART SYND Clinic [address] [facility] [address] [address] [place] [phone] Social History Tobacco Use Types Packs/Day Years [...] 07/27/2022 Ancillary Procedure Cardiology Cordell Juarez MD [address] [place], [place] [phone] (Wo rk) 07/27/2022 Office Visit Cardiology Cordell Juarez MD [address] [place], [place] [address] (Wo rk) documented as of this encounter Visit Diagnoses Diagnosis Tachycardia with heart rate 100-120 beat s per minute - Primary 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
--- OUTSIDE RECORDS SUMMARY | 2022-04-10 10:29 | XMS_ITS | Encounter Summary ---
:2000 Author Organization [place] Address [address] [place] [address]. [place] [address] Care Team Providers Name Role Phone Unavailable Primary Care Provider Unavailable Reason for Visit (Routine) - Closed Specialty Diagnoses / Procedures Referred By Contact Refer red To Contact Radiology / Radiology. Diagnoses EPIC ORDER Sched with mom Jaimie [phone] Ur Mri Procedures MR CHEST W ANGIOGRAM [address] [place] [phone] Phone: Referral ID Status Reason Start Date Expiration Date Visits Requ ested Visits Authorized [id number] Closed 05/12/2014 05/12/2015 1 1 Encounter Details Date Type Department Care Team Description 05/24/[address] [facility] Cordell Juarez , Atypical chest pain; [facility] Imaging Single ventricle, heterotaxia syndrome [facility] [address] [place] [id number] Social History Tobacco Use Types Packs/Day Years [...] Ancillary Procedure Cardiology Cordell Juarez MD [address] [place] [phone] (Wo rk) 07/27/2022 Office Visit Cardiology Cordell Juarez MD [address] [place], [place] [address] [employer] [address] [address] (Wo rk) documented as of this encounter Procedures Procedure Name Priority Date/Time Associated Diagnosis Comme nts MRA CHEST W Routine 05/24/2014 10:[address] pain Results for this CONTRAST PROJECT ECONOMIST Single ventricle, procedure are in heterotaxia syndrome the res ults section. documented in this encounter Results MRA Chest w Contrast Angiogram (05/24/2014 10:53 AM PROJECT ECONOMIST) Anatomical Region Laterality Modality Chest, SUBRAD IR PROCEDURE, UMP MR MRA M agnetic Resonance Specimen (Source) Anatomical Location Collection Method / Collectio n Time Received Time / Laterality Volume Impressions 05/24/2014 4:40 PM PROJECT ECONOMIST IMPRESSION: 1. Double outlet right ventricle, hypopl [...] Constantine ENG MD Narrative 05/24/2014 4:40 PM PROJECT ECONOMIST MR CARDIAC W CONTRAST STRESS AND FLOW, MRA CHEST W CONTRAST [id number]/8/2014 10:53 AM COMPARISON: ??None HISTORY: Double outlet [...] and volumetric postprocessing was perfor med by flooring installer on an independent workstation. FINDINGS: SITUS: There [...] AND FLOW, M RA CHEST W CONTRAST [id number]/8/2014 10:53 AM COMPARISON: None HISTORY: Double outlet [...] and volumetric postprocessing was perfor med by flooring installer on an independent workstation. FINDINGS: SITUS: There [...]
--- OUTSIDE RECORDS SUMMARY | 2022-04-10 10:29 | XMS_ITS | Encounter Summary ---
:2000 Author Organization [place] Address [address] [place] [address]. [place] [address] Care Team Providers Name Role Phone Unavailable Primary Care Provider Unavailable Reason for Referral - Closed Specialty Diagnoses / Procedures Referred By Contact Refer red To Contact Diagnoses Heterotaxy Hypoplastic left heart syndrome Cordell Herrera MD Procedures Ziopatch Holter Monitor - Peds [address] [place] [address]45 4 Referral ID Status Reason Start Date Expiration Date Visits Requ ested Visits Authorized [id number] Closed 11/23/2015 11/22/2016 1 1 Reason for Visit Reason Comments RECHECK Hypoplastic left heart syndr ome Encounter Details Date Type Department Care Team Description 11/23/2015 Office Visit [facility] Cordell Herrera, Emi plastic left heart syndrome (Primary Dx); Pediatric Specialty [facility] Clinic [address] [facility] [place] [id number] [phone] Social History Tobacco Use Types Packs/Day Years [...] 11/23/2015 9:58 AM CD T Growth Chart: [facility] (Boys, 2-20 Years) documented in this encounter Patient Instructions Patient InstructionsLohr, Cordell Barajas MD - 11/23/2015 11:35 AM CDT You were seen today in the Pediatric Cardiology Clinic at [facility] Cardiology [...] about today's visit, please call our clinic [phone] For after hours urgent needs call [phone] and ask to speak to the Pediatric Cardiology Physician operations administrative assistant. For emergencies call [phone]. documented in this encounter Progress Notes Cordell Herrera MD - 12/13/2015 11:28 PM CDT Pediatric Cardiology Visit Patient: Jude Merritt Date of : 2000 Age: 15 y 10 m Date of Visit: Nov 23, 2015 PCP: Ana Florentino [place] Dear Dr. Reed, I had the pleasure of seeing your patient, Jude Merritt, in the Pediatric Cardiology Clinic at [facility] in [place] on Nov 23, 2015. 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 He underwent a central shunt, followed by a Fortino procedure and completion of a Fontan procedure at the [facility] in equine pharmacology technician. He had catheter closure of his Fontan fenestration at the [facility] in January 2007. Jude [...] no longer playing basketball. 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 He continues on his coumadin, and gets INR's checked in [place] with a goal range of 2-2.5. Current [...] FH/SH: Jude and his family live in [place]. His mother is a nurse at [employer]. His height is 1.615 m (5' 3.58) [...] cath for early January Cordell Bingham M.D. Laundry Agent of Pediatrics Division of Pediatric Cardiology [facility] documented in this encounter Nursing Notes Kim [...] 07/27/2022 Ancillary Procedure Cardiology Cordell Herrera MD [address] [place] [id number] (Arleen valdes) 07/27/2022 Office Visit Cardiology Cordell Herrera MD [facility] [address] [place], [place] [phone] (Arleen valdes) documented as of this encounter Results Ziopatch Holter Monitor - Peds (11/30/2015) Narrative Kirsten Segura - 11/30/2015 HOLTER MONITOR ??MAILED [facility] [address] [place] [id number] DATE : ??November 24, 2015 CYBER CRIME INVESTIGATOR : Jennifer Tyler CMA DEVICE DETAILS: [id number] Cordell Herrera MD CV CARDIAC SERVICES ORDERABL ES Echo pediatric complete (11/23/2015 10:41 AM CDT) Anatomical Region Laterality Modality Echocardiography Specimen (Source) Anatomical Collection Method Collection Time Re ceived Time Location / / Volume Laterality 11/23/2015 10:07 AM CDT Narrative 11/23/2015 11:56 AM CDT Interpretation Summary ? Study ID: [id number] ? [facility] ?Echocardiography Laboratory ?[address] ? [place] [address] ?P ediatric Echocardiogram Name: JUDE MERRITT Study [...] MD - 11/23/2015 Interpretation Summary Study ID: [id number] [facility] Echocardiography Laboratory [address] [place] [address] Pediatric Echocardiogram Name: JUDE MERRITT Marquis Study Date: 11/23/2015 10:07 AM Patient Location: [facility] Age: 15 yrs : 2000 BP: [...]
--- OUTSIDE RECORDS SUMMARY | 2022-04-10 10:29 | XMS_ITS | Encounter Summary ---
:2000 Author Organization [place] Address [address] [place] [address] Care Team Providers Name Role Phone Unavailable Primary Care Provider Unavailable Reason for Visit (Routine) - Closed Specialty Diagnoses / Procedures Referred By Contact Refer red To Contact Radiology / Radiology. Diagnoses EPIC ORDER Kyung Ur Ct Scan Procedures CT CHEST W [address] [place] [phone] Phone: Referral ID Status Reason Start Date Expiration Date Visits Requ ested Visits Authorized [id number] Closed 12/28/2015 12/27/2016 1 1 Encounter Details Date Type Department Care Team Description 01/04/2016 Hospital Encounter [facility] Cordell Juarez S/P Herbert [facility] Imaging procedure [address] [place] [address] [address] [place] [address] [phone] Social History Tobacco Use Types Packs/Day Years [...] Comment Parents accompanied patient. Family lives in [place] [facility] [place] for work. Patient chose dad, [...] [address] [facility] [address] [place] [address] (Wo lucio) 07/27/2022 Office Visit Cardiology Cordell Juarez MD [address] [place] [address] (Wo lucio) documented as of this encounter [...] Fortino procedu re and completion Fontan in early childhood teacher assistant. Amplatzer occluder clos ure of Fontan fenestration [...] Fortino procedu re and completion Fontan in early childhood teacher assistant. Amplatzer occluder clos ure of Fontan fenestration [...]
--- OUTSIDE RECORDS SUMMARY | 2022-04-10 10:29 | XMS_ITS | Encounter Summary ---
:2000 Author Organization [place] Address [facility] [place] [address] Care Team Providers Name Role Phone Unavailable Primary Care Provider Unavailable Encounter Details Date Type Department Care Team Description 11/09/2015 Orders Only [facility] Cordell Juarez Hypo plastic left Pediatric Specialty MD heart syndrome Clinic [address] (Primary Dx) [address] [facility] [place] [phone] Social History Tobacco Use Types Packs/Day Years [...] Ancillary Procedure Cardiology Cordell Juarez MD [address] [place] [address] [address] [place] [address] (Wo rk) 07/27/2022 Office Visit Cardiology Cordell Juarez MD [address] [place] [address] [address] [place] [address] (Wo rk) documented as of this encounter 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
--- OUTSIDE RECORDS SUMMARY | 2022-04-10 10:29 | XMS_ITS | Encounter Summary ---
:2000 Author Organization [place] Address [address] [place] [address] Care Team Providers Name Role Phone Unavailable Primary Care Provider Unavailable Encounter Details Date Type Department Care Team Description 01/10/2016 Telephone UR PHYS Loly Wilkerson [facility] [facility] Building [address] [facility] [address] [place] [address] [place], [place] [phone] Social History Tobacco Use Types Packs/Day Years [...] Cordell Juarez MD [address] [place], [place] [address] (Wo lucio) 07/27/2022 Office Visit Cardiology Cordell Juarez MD [address] [place] [address] (Arleen valdes) documented as of this encounter Visit Diagnoses Not on filedocumented in this encounter
--- OUTSIDE RECORDS SUMMARY | 2022-04-10 10:30 | XMS_ITS | Encounter Summary ---
:2000 Author Organization [place] Address [address] [place] [address] Care Team Providers Name Role Phone Unavailable Primary Care Provider Unavailable Reason for Visit Reason Comments RECHECK Pt here for a follow up on c olitis Encounter Details Date Type Department Care Team Description 01/06/2013 Office Visit [facility] Seth Andrews Colitis (Primary Dx); Pediatric Specialty Tacho Petit MACHINE WIPER HYPOPLASTIC LEFT HEART SYND; Clinic [address] History of gastritis [address] [place] [address] [phone] Social History Tobacco Use Types Packs/Day Years [...] 01/06/2013 12:49 PM C DT Growth Chart: [facility] [...] central shunt, Fortino procedure and Fontan at [facility] followed by catheter closure of Fontan at the [facility]. He was born in [place] and adopted by [employer] when he was 3 years old. Dad notes that Jude is very physically active and has remained very healthy. Immunizations UTD. He has not had any further surgeries or hospitalizations since Dr. Ngo saw him in 2010. He is allergic to Catopril. On physical exam, Jude is a well appearing [place] boy. He is very quiet but appropriate [...] this information with his via e-mail at [email or web address] I personally reviewed results of laboratory evaluation, imaging studies and past medical records that were available during this outpatient visit. Seth Andrews MS, RN, CPNP Pediatric Nurse Practitioner Pediatric Gastroenterology, Hepatology and Nutrition [facility] [phone] Patient Care Team: Trey Wallace as PCP [...] 07/27/2022 Ancillary Procedure Cardiology Cordell Juarez MD [address] [facility]6 [place], [place] [address] (Arleen valdes) 07/27/2022 Office Visit Cardiology Cordell Juarez MD [address] [facility] [address] [place], [place] [address] (Arleen valdes) documented as of this encounter Visit Diagnoses Diagnosis Colitis - Primary Other and unspecified noninfectious tesha roenteritis and colitis 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
--- OUTSIDE RECORDS SUMMARY | 2022-04-10 10:30 | XMS_ITS | Encounter Summary ---
:2000 Author Organization [place] Address [facility] [place] [address] Care Team Providers Name Role Phone Unavailable Primary Care Provider Unavailable Reason for Visit Reason Comments RECHECK follow up dizziness and SOB Encounter Details Date Type Department Care Team Description 08/12/2013 Office Visit [facility] Cordell Juarez, [facility] PLASTIC LEFT Pediatric Specialty HEART SYND (Primary Clinic [address] Dx) [address] [place] [address] [phone] Social History Tobacco Use Types Packs/Day Years [...] Comments Blood Pressure 106/63 08/12/2013 2:56 PM MEDICAL TRANSCRIPTION EDITOR Pulse 74 08/12/2013 2:53 PM MEDICAL TRANSCRIPTION EDITOR Temperature - - Respiratory Rate 20 08/12/2013 2:53 PM MEDICAL TRANSCRIPTION EDITOR Oxygen Saturation 98% 08/12/2013 2:53 PM MEDICAL TRANSCRIPTION EDITOR Inhaled Oxygen Concentration - - Weight 41.2 kg (90 lb 13.3 oz) 08/12/2013 2:53 PM MEDICAL TRANSCRIPTION EDITOR Height 149.5 cm (4' 10.86) 08/12/2013 2:53 PM MEDICAL TRANSCRIPTION EDITOR Body Mass Index 18.43 08/12/2013 2:53 PM MEDICAL TRANSCRIPTION EDITOR Body Mass Index Percentile 43.94 % 08/12/2013 2:53 PM CS T Growth Chart: [facility] (Boys, 2-20 Years) documented in [...] Bills, in the Pediatric Cardiology Clinic at [facility] in [place] on Aug 12, 2013. 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 He [facility] Jude was last seen in [...] 8th grade at a new school in [place] and is doing well. He participates in basketball. He continues on his coumadin, and gets INR's checked in [place] with a goal range of 2-2.5. Current Outpatient Prescriptions Medication ??? dexmethylphenidate (FOCALIN XR) 15 MG 24 hr capsule ??? warfarin (COUMADIN) 2 MG tablet ??? omeprazole (PRILOSEC) 20 MG capsule ??? lisinopril (PRINIVIL,ZESTRIL) 10 MG tablet ??? Loratadine (CLARITIN PO) ??? warfarin (COUMADIN) 4 MG tablet FH/SH: Jude and his family Live in [place]. His mother is a nurse at [employer]. His height is 1.495 m (4' 10.86) [...] from prior echocardiograms. Labs: done 07/30/13 in [place] Cr 0.5 alb 4.7 bili 1.4 AST [...] prn new concerns Sincerely, Cordell Juarez M.D. Bead Forming Machine Set Up Operator of Pediatrics Division of Pediatric Cardiology [facility] CAL TRANSCRIPTION EDITOR documented in this encounter Nursing Notes 08/12/2013 [...] Ancillary Procedure Cardiology Cordell Juarez MD [facility] [address] [address] (Wo rk) 07/27/2022 Office Visit Cardiology Larry, Cordell skelton MD [address] [place] [address] (Wo rk) documented as of this encounter Procedures Procedure Name Priority Date/Time Associated Diagnosis Comme [facility] ELECTROCARDIOGRAM REPORT, Routine 08/13/2013 HYPOPLASTI C [...]
--- OUTSIDE RECORDS SUMMARY | 2022-04-10 10:30 | XMS_ITS | Encounter Summary ---
:2000 Author Organization [address] [place] [address] Care Team Providers Name Role Phone Unavailable Primary Care Provider Unavailable Reason for Visit Reason Onset Date Comments Refill Request 05/18/2013 Encounter Details Date Type Department Care Team Description 05/18/2013 Refill [facility] Pediatric [place] , Cordell Barajas MD Refill Request Specialty Clinic [address] [place] [address] [facility] [place] [address] [phone] Social History Tobacco Use Types Packs/Day Years Used Date Smoking Tobacco: Never Comments: none at home Alcohol Use Standard Drinks/Week Comments Not Asked 0 (1 standard drink = 0.6 oz pure alcoho l) Sex Assigned at Date Recorded Male 03/09/2019 1:21 PM CDT documented as of this encounter Miscellaneous Notes Telephone Encounter - Delicia Izaguirre RN - 05/18/2013 1:41 PM HEAD WOOD GRINDER Cordell Received a refill request from [employer]. Delicia Baum RN WOOD GRINDER documented in this encounter Plan of Treatment Upcoming Encounters Date Type Specialty Care Team Description 07/27/2022 Ancillary Procedure Cardiology Cordell Juarez MD [address] [place] [address] (Wo rk) 07/27/2022 Office Visit Cardiology Cordell Juarez MD [address] [place] [address] (Wo rk) documented as of this encounter Visit Diagnoses Diagnosis 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
--- OUTSIDE RECORDS SUMMARY | 2022-04-10 10:30 | XMS_ITS | Encounter Summary ---
:2000 Author Organization [place] Address [facility] [place] [address] Care Team Providers Name Role Phone Unavailable Primary Care Provider Unavailable Encounter Details Date Type Department Care Team Description 08/12/2013 Results Only [facility] Rudy Juarez MD Hospital Results [address] [place], [place] [address] (Wo rk) Social History Tobacco Use Types [...] 07/27/2022 Ancillary Procedure Cardiology Cordell Juarez MD [address] [place] [phone] (Wo rk) 07/27/2022 Office Visit Cardiology Cordell Juarez MD [address] [place] [phone] (Wo rk) documented as of this encounter Procedures Procedure Name Priority Date/Time Associated Diagnosis Comme nts ECHO PEDIATRIC 08/12/2013 3:26 PM Results for this COMPLETE ADVERTISING DIRECTOR procedure are i n the results section. documented in this encounter Results Echo pediatric complete (08/12/2013 3:26 PM ADVERTISING DIRECTOR) Anatomical Region Laterality Modality Echocardiography Specimen (Source) Anatomical Collection Method Collection Time Re ceived Time Location / / Volume Laterality 08/12/2013 3:26 PM ADVERTISING DIRECTOR Narrative 08/13/2013 1:08 PM ADVERTISING DIRECTOR PEDIATRIC ECHOCARDIOGRAM [facility] ? ?Echocardiogram Lab ? Age: ??1 ? Wt: ??41.2 kg ?Ht: ??149.5 cm ??BSA: ?? 1331 m2 ? BP: ??106/63 ? [employer] ? Brand Marketing Intern: ??kbINDICATION: ??DORV A cardiac ultrasound study based [...] to the aorta. ?? Artemio Silva MD-Pager [phone] Gayathri Ayala MD-Pager [phone] Jorge Link MD-Pager [phone] or Cordell Juarez MD-Pager [phone] Jayson Bailey MD-Pager [phone] Vilma Rucker MD-Pager [phone] Constantine Herrera MD-Pager # [phone] Temo Mccord MD - Pager ?? Procedure Note Constantine Herrera MD - 08/13/2013Forma tting of this note might be different from the original. PEDIATRIC ECHOCARDIOGRAM [facility] E chocardiogram Lab Age: [birth year] Wt: 41.2 kg Ht: 149.5 cm BS A: 1331 m2 BP: 106/63 [employer] Brand Marketing Intern: kbINDICATION: DORV A cardiac ultrasound study based [...] icle to the aorta. Artemio Silva MD-Pager [phone] Gayathri Ayala MD-Pager [phone] Jorge Link MD-Pager [phone] or Cordell Juarez MD-Pager [phone] Jayson Bailey MD-Pager [phone] Vilma Rucker MD-Pager [phone] Constantine Herrera MD-Pager # [phone] Temo Mccord MD - Pager Cordell Juarez MD CV PEDS ECHO ORDERABLES documented in this encounter Visit Diagnoses Not on filedocumented in this encounter
--- OUTSIDE RECORDS SUMMARY | 2022-04-10 10:30 | XMS_ITS | Encounter Summary ---
:2000 Author Organization [place] Address [facility] [place] [address] Care Team Providers Name Role Phone Unavailable Primary Care Provider Unavailable Encounter Details Date Type Department Care Team Description 01/07/2013 Results Only [facility] Rudy Juarez MD Hospital Results [address] [place], [place] [address] (Wo rk) Social History Tobacco Use Types [...] Ancillary Procedure Cardiology Cordell Juarez MD [address] [place] [address] (Wo rk) 07/27/2022 Office Visit Cardiology Cordell Juarez MD [address] [place] [phone] (Wo rk) documented as of this encounter [...] 01/08/2013 4:05 PM CDT PEDIATRIC ECHOCARDIOGRAM ?? [facility] ? ?Echocardiogram Lab ? Age: ??1 ? Wt: ? Ht: ? BSA: ?BP: ? [employer] ? Cafeteria Monitor: ??kb INDICATION: ??Patient w ith double outlet right ventricle with left ventricular hypoplas ia, d-transposed great vessel. Had undergone initially a centra l shunt followed by Fortino and a Fontan at [facility]. Fontan fenestra tion was closed in 2006. [...] Fortino procedure and Fo ntan completion at [facility]. Had underwent Fontan fenestratio n closure in [...] of 0.4 m/sec. ?? Artemio Silva MD-Pager [phone] ?? Gayathri Ayala MD-Pager [phone] ?? Jorge Link MD-Pager [phone] or Cordell Juarez MD-Pager [phone] ?? Jayson Bailey MD-Pager [phone] Vilma Rucker MD-Pager [phone] Constantine Herrera MD-Pager # [phone] Temo Mccord MD - Pager ??[phone] Procedure Note Aga Rucker MD - 01/08/2013Form atting of this note might be different from the original. PEDIATRIC ECHOCARDIOGRAM [facility] E chocardiogram Lab Age: 801/31/00 Wt: Ht: BSA: BP: [employer] Cafeteria Monitor: raquel INDICATION: Patient with double outlet right ventricle with left ventricular hypoplas ia, d-transposed great vessel. Had undergone initially a centra l shunt followed by Fortino and a Fontan at [facility]. Fontan fenestra tion was closed in 2006. [...] Fortino procedure and Fo ntan completion at [facility]. Had underwent Fontan fenestratio n closure in [...] velocity of 0.4 m/sec. Artemio Silva MD-Pager [phone] Gayathri Ayala MD-Pager [phone] Jorge Link MD-Pager [phone] or Cordell Juarez MD-Pager [phone] Jayson Bailey MD-Pager [phone] Vilma Rucker MD-Pager [phone] Constantine Herrera MD-Pager # [phone] Temo Mccord MD - Pager [phone] Cordell Juarez MD CV PEDS ECHO ORDERABLES documented in this encounter Visit Diagnoses Not on filedocumented in this encounter
--- OUTSIDE RECORDS SUMMARY | 2022-04-10 10:30 | XMS_ITS | Encounter Summary ---
:2000 Author Organization [address] [place] [address] Care Team Providers Name Role Phone Unavailable Primary Care Provider Unavailable Encounter Details Date Type Department Care Team Description 05/04/2014 Telephone [facility] Pediatric Cordell Juarez MD Specialty Clinic [address] [facility] [place] [address] [facility] [place] [address] [phone] Social History Tobacco Use Types Packs/Day Years [...] a call back on this matter, Thanks. TATISTICS PROFESSOR documented in this encounter Plan of Treatment Upcoming Encounters Date Type Specialty Care Team Description 07/27/2022 Ancillary Procedure Cardiology Cordell Juarez MD [address] [place], [place] [address] (Wo rk) 07/27/2022 Office Visit Cardiology Cordell Juarez MD [address] [place], [place] [address] (Wo rk) documented as of this encounter Visit Diagnoses Not on filedocumented in this encounter
--- OUTSIDE RECORDS SUMMARY | 2022-04-10 10:30 | XMS_ITS | Encounter Summary ---
:2000 Author Organization [place] Address [facility]0 [place] [address] Care Team Providers Name Role Phone Unavailable Primary Care Provider Unavailable Encounter Details Date Type Department Care Team Description 07/22/2013 Orders Only [facility] Juliana Neal, SOB (shortness of Pediatric Specialty PRACTICE LEAD ECOLOGY TEACHER breath) (Primary Dx) Clinic [place] [address] [address] [address] [place], [place] [id number] [place] [address] Social History Tobacco Use Types Packs/Day [...] Ancillary Procedure Cardiology Cordell Juarez MD [address] [place] [phone] (Wo rk) 07/27/2022 Office Visit Cardiology Cordell Juarez MD Critical access hospital0 [address] [address] (Wo rk) documented as of this encounter Visit Diagnoses Diagnosis SOB (shortness of breath) - Primary Shortness of breath documented in this encounter
--- OUTSIDE RECORDS SUMMARY | 2022-04-10 10:30 | XMS_ITS | Encounter Summary ---
:2000 Author Organization [place] Address [facility] [place] [address] Care Team Providers Name Role Phone Unavailable Primary Care Provider Unavailable Reason for Visit Reason Comments Chest Pain chest pain sharp for 3 days Encounter Details Date Type Department Care Team Description 04/15/2014 Emergency [facility] Randa Umanzor est pain (Primary Dx); [facility] Emergency AMD Hypoplastic left heart syndrome; Department [address] [facility] S/P Fontan procedure [address] [facility] [address] [place] [address] [place], [place] [phone] [facility] [phone] (Wo rk) Social History Tobacco Use Types [...] for Jude Roque was seen in the [facility] Emergency Department today for chest pain [...] with 0.4 and 0.8 ml, call us ([phone]) or check with your doctor about the dose before using it. AND/OR Ibuprofen (Advil, Motrin) every 6 hours as needed. His dose is: 1 tab of the 400 mg prescription tabs (40-60 kg/88-132 lbs) These doses are calculated based on your child's weight today, and are rounded to awfb-ct-dzuxojy amounts. If you have a prescription for [...] Ugarte MD - 04/15/2014 8:52 PM CDT [facility] Consult Note Pediatric cardiology was asked to consult on this patient for chest pain. 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 He had device closure of his Fontan [...] monitor at discharge 4. Follow-up with primary atmospheric physicist, Dr. Cordell Juarez in 2 weeks. Abi Benz MD Pediatric Rn Shift Mgr History of Present Illness: Jude reports a [...] Fortino now with Fenestrated Fontan Done at [place] ??? 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 Esophageal reflux ??? Congenital anomalies of spleen Polysplenia Social History: Jude is in the 8th grade and lives in [place], [place]. Attending Attestation: Attestation: This patient has [...] frequently. Happens at rest. [facility]. 1.2 [...] at the [facility] in asbestos abatement technician. He had catheter closure of his Fontan fenestration at the [facility] in January 2007. Most recent echo 08/12/13 [...] Fortino now with Fenestrated Fontan Done at [place] ??? Congenital anomalies of intestinal fixation s/p [...] and Surgical History, and Social History inthe [employer] system. Review of Systems Please see HPI [...] and echocardiogram were unremarkable, without evidence of CA, CHF, active arrhythmia or other cardiac abnormality [...] attending, Dr. Umanzor. Jennifer Govea MD, PL-3 [facility] Pediatric Resident [phone] This data was collected with the resident physician working in the Emergency Department. I saw and evaluated the patient and repeated the norton portions of the history and physical exam. The plan of carehas been discussed with the patient and family by me or by the resident under my supervision. I haveread and edited the entire note. Randa Umanzor MD 04/15/2014 [facility] EMERGENCY DEPARTMENT Randa Umanzor MD 04/15/14 1537 documented in this encounter Plan of Treatment Upcoming Encounters Date Type Specialty Care Team Description 07/27/2022 Ancillary Procedure Cardiology Cordell Juarez MD [address] [facility] [place] [address] (Wo rk) 07/27/2022 Office Visit Cardiology Cordell Juarez MD [address] [facility] [place] [address] (Wo rk) Scheduled Orders Name Type Priority [...] / Laterality Volume Narrative 04/20/2014 5:57 PM GRAPHIC DESIGN INTERN PEDIATRIC ECHOCARDIOGRAM [facility] osvaldo ? Age: 801/31/2000 ??Wt: 47.9 kg ??Ht: ??149 cm ?? BSA: 1.4 m2 ?? BP: 113/73 [employer] ?? Database Programmer Analyst: ??mr INDICATION: Heterotaxy, Fontan, DORV, D- malposed, [...] mixing. ??There is no evidence of a cqwb-sk-qngyn shunt at atrial, ventricular or great artery levels. At least one left and one right pulmonary vein is identified draining normally to the left atrium. ?? Not Evaluated Artemio Silva MD-Pager [phone] Gayathri Ayala MD-Pager [phone] Jorge Link MD-Pager [phone] or Cordell Juarez MD-Pager [phone] Jayson Bailey MD-Pager [phone] Vilma Rucker MD-Pager [phone] Constantine Herrera MD-Pager # [phone] Radha Carlson MD-Pager [phone] Temo Mccord MD ? Pager ??[phone] Jennifer Govea MD CV PEDS ECHO ORDERABLES Troponin I (04/15/2014 1:31 PM CDT) [facility] Method Time Signature Troponin I ES <0.015 0.000 - U OF M The 99th percentile for uppe r reference range is 0.045 ug/L. ??Troponin values in 0.045 AMPLATZ the range of 0.045 - 0.120 ug/L may be associated wit h risks of adverse ug/L [facility] clinical events. HOSPITAL Effective 01/13/2014, the re ference range for this assay has changed to reflect new instrumentation/methodology. Specimen Anatomical Collection Method Collection Time Receive d Time (Source) Location / / Volume Laterality Blood specimen 04/15/2014 1:31 PM 014 1:37 (specimen) CDT PM CDT Jennifer Govea MD LAB - BLOOD ORDERABLES Performing Organization Address City/State/ZIP Code Phon e Number [facility] OF [facility] OF [facility] BNP (04/15/2014 1:31 PM CDT) athologist Signature N-Terminal Pro 44 0 - 240 U OF M [facility] BNP Inpatient pg/mL [facility] Specimen Anatomical Collection Method Collection Time Receive d Time (Source) Location / / Volume Laterality Blood specimen 04/15/2014 1:31 PM 014 1:37 (specimen) CDT PM CDT Jennifer Govea MD LAB - BLOOD ORDERABLES Performing Organization Address City/[facility]/ZIP Code Phon e Number [facility] OF [facility] U OF M [facility] XR Chest 2 Views (04/15/2014 1:03 PM [...] MD Jennifer Govea MD IMG DIAGNOSTIC IMAGING [facility] HOLTER MONITOR CARDIAC - HIM SCAN (04/15/2014 [...]
--- OUTSIDE RECORDS SUMMARY | 2022-04-10 10:30 | XMS_ITS | Encounter Summary ---
:2000 Author Organization [place] Address [address] [facility] [place] [address] Care Team Providers Name Role Phone KomalStephen Primary Care Provider [facility] Primary Care Provider [phone] Magnus Zayas DO Primary Care Provider Magnus Zayas DO Unavailable [phone] Celeste Scales MD Unavailable Magnus Zayas DO Unavailable [phone] Magda Winchester MD Primary Care Provider Encounter Details Date Type Department Care Team Description 12/11/2012 Abstract [facility] Cordell Juarez MD HYPOPLASTIC LEFT HEART Pediatric Specialty [address] [facility] [place] (Primary Dx) [facility] [place] [address] [address] [place] [address] Social History Tobacco Use Types [...] Ancillary Procedure Cardiology Cordell Juarez MD [address] [place], [place] [address] (Wo rk) 07/27/2022 Office Visit Cardiology Cordell Juarze MD [address] [place], [place] [address] (Wo rk) documented as of this encounter [...] documented as of this encounter Care Teams Special Effects Specialist Relationship Specialty Start Date End Date Stephen Sauceda PCP - General Pediatrics 03/06/17 06/24/19 [facility] [address] [place] [address] Ana Ervin Birmingham PCP - General 06/25/19 02/22/[address] [place] [address], [place] [address] Maguns Zayas, PCP - General Student in organized 02/23/20 09/17/[address] education/training program [address] [place] [id number] Magda Winchester PCP - General Family Medicine 09/18/21 [facility] Magnus Zayas, Assigned PCP 02/28/2004/[address] [address] Celeste Scales MD Assigned PCP 11/10/20 11/19/[address] [place] [id number] Magnus Zayas, Assigned PCP 11/20/[address] [id number] documented as of this encounter
--- OUTSIDE RECORDS SUMMARY | 2022-04-10 10:30 | XMS_ITS | Encounter Summary ---
:2000 Author Organization [place] Address [address] [facility] [place] [address] Care Team Providers Name Role Phone Unavailable Primary Care Provider Unavailable Reason for Visit Reason Comments Headache Encounter Details Date Type Department Care Team Description 07/09/2013 Emergency [facility] Camille Bunch MD Hives (Primary Dx) Emergency Department [address] [facility] [address] [place] [address] [place] [address] [phone] Social History Tobacco Use Types Packs/Day Years [...] Comments Blood Pressure 98/54 07/09/2013 3:46 PM DIRECTOR CALL Pulse 75 07/09/2013 1:20 PM DIRECTOR CALL Temperature 36.7 ??C (98.1 ??F) 07/09/2013 3:46 PM DIRECTOR CALL Respiratory Rate 20 07/09/2013 3:46 PM DIRECTOR CALL Oxygen Saturation 96% 07/09/2013 3:46 PM DIRECTOR CALL Inhaled Oxygen Concentration - - Weight 39.6 kg (87 lb 4.8 oz) 07/09/2013 1:20 PM DIRECTOR CALL Height - - Body Mass Index - - documented in this encounter Discharge Instructions Discharge InstructionsRachelle Lama MD - 07/09/2013 3:21 PM CST Emergency Department Discharge Information for Jude Roque was seen in the [facility] Emergency Department today for hand [...] with 0.4 and 0.8 ml, call us ([phone]) or check with your doctor about the [...] throat -- Dizziness, weakness or fainting ?? [phone], [place] [address]. All rights reserved. This information is not intended as a substitute for professional medical care. Always follow your healthcare professional's instructions. CTOR CALL documented in this encounter Medications at Time [...] Fortino now with Fenestrated Fontan Done at [place] ??? Congenital anomalies of intestinal fixation s/p [...] and Surgical History, and Social History inthe [employer] system. Review of Systems Please see HPI [...] Ketones Urine 10 (*) NEG mg/dL Specific [place] Urine 1.028 1.003 - 1.035 Blood Urine [...] medications on file Final diagnoses: None 07/09/2013 [facility] EMERGENCY DEPARTMENT Dariusz Bunch MD 07/11/13 1609 CTOR CALL Tonya Sherman RN - 07/09/2013 1:23 PM CST Pt reports headaches for 4 days. This morning awoke with swollen/itchy hands. History of [facility]. Surgically repairs through the Fontan procedure. VSS. Afebrile. Currently no headache. Cardiology advised pt to be seen in ED. Mother at bedside. CTOR CALL documented in this encounter Plan of Treatment Upcoming Encounters Date Type Specialty Care Team Description 07/27/2022 Ancillary Procedure Cardiology Cordell Juarez MD [address] [place], [place] [address] (Wo rk) 07/27/2022 Office Visit Cardiology Cordell Juarez MD [address] [facility] [address] [place], [place] [address] (Wo rk) documented as of this encounter Procedures Procedure Name Priority Date/Time Associated Comments Diagnosis EKG 12 LEAD - STAT 07/09/2013 3:34 PM Results for this PEDIATRIC DIRECTOR CALL procedure are i n the results section. ROUTINE UA WITH STAT 07/09/2013 2:54 PM Result s for this MICROSCOPIC DIRECTOR CALL procedure are i n the results section. XR CHEST 2 VIEWS STAT 07/09/2013 2:46 PM Resul ts for this DIRECTOR CALL procedure are i n the results section. INFLUENZA A/B ANTIGEN STAT 07/09/2013 2:28 PM Results for this DIRECTOR CALL procedure are i n the results section. documented in this encounter Results EKG 12 lead - pediatric (07/09/2013 3:34 PM DIRECTOR CALL) [facility] Method Time Signature Interpretation ECG Click View RADIOLOGY Image link RESULTS to view waveform and result Specimen (Source) Anatomical Collection Method Collection Time Re ceived Time Location / / Volume Laterality 07/09/2013 3:34 PM DIRECTOR CALL Rachelle Lama MD ECG ORDERABLES Performing Organization Address City/State/ZIP Code Phon e Number RADIOLOGY RESULTS (ABNORMAL) UA with Microscopic (07/09/2013 2:54 PM DIRECTOR CALL) [employer] Method Time Signature Color Urine Yellow [facility] Appearance Urine Slightly [facility] Cloudy [facility] Glucose Urine Negative NEG mg/dL [facility] Bilirubin Urine Negative NEG [facility] Ketones Urine 10 (A) NEG mg/dL [facility] Specific [place] 1.028 1.003 - [facility] Urine 1.035 [facility] Blood Urine Negative NEG [facility] pH Urine 5.5 5.0 - 7.0 [facility] pH [facility] Protein Albumin 10 (A) NEG mg/dL [facility] Urine [facility] Urobilinogen 2.0 0.0 - 2.0 [facility] mg/dL mg/dL [facility] Nitrite Urine Negative NEG [facility] Leukocyte Negative NEG [facility] Esterase Urine [facility] Source Midstream [facility] Urine [facility] WBC Urine 1 0 - 2 [facility] /HPF [facility] RBC Urine 2 0 - 2 [facility] /HPF [facility] Mucous Urine Present (A) NEG /LPF [facility] Specimen Anatomical Collection Method Collection Time Receive d Time (Source) Location / / Volume Laterality Urine specimen URINE SPECIMEN 07/09/2013 2:54 PM 07/09 3:01 (specimen) OBTAINED BY CLEAN DIRECTOR CALL PM DIRECTOR CALL CATCH PROCEDURE / Unknown Rachelle Lama MD LAB - URINE ORDERABLES Performing Organization Address City/State/ZIP Code Phon e Number [facility] [address] [place] [address] [facility] XR Chest 2 Views (07/09/2013 2:46 PM DIRECTOR CALL) Anatomical Region Laterality Modality Chest Other Specimen (Source) Anatomical Collection Method Collection Time Re ceived Time Location / / Volume Laterality 07/09/2013 2:46 PM DIRECTOR CALL Impressions 07/09/2013 3:11 PM DIRECTOR CALL IMPRESSION: 1. Dense opacification in the anterior [...] DEMETRIO LIN MD Narrative 07/09/2013 3:11 PM DIRECTOR CALL HISTORY: Congenital heart disease, perip heral edema. [...] BHAVESH Influenza A/B antigen (07/09/2013 2:28 PM DIRECTOR CALL) P athologist Signature Influenza A/B Nares [facility] Agn Specimen [facility] Influenza A Negative NEG [facility] Influenza B Negative NEG [facility] Specimen (Source) Anatomical Location Collection Collection Time Received Time / Laterality Method / Volume Specimen from NASOPHARYNGEAL 07/09/2013 2:28 4 nasopharyngeal STRUCTURE / Unknown PM DIRECTOR CALL 2:29 P M DIRECTOR CALL structure (specimen) Dariusz Bunch MD LAB - MICRO GENERAL ORDERABL ES Performing Organization Address City/State/ZIP Code Phon e Number [facility] [address] [place] [address] [facility] documented in this encounter Visit Diagnoses Diagnosis Hives - Primary Urticaria, unspecified documented in this encounter Administered Medications Inactive Administered Medications - up to 3 most recent administrations Medication Order MAR Action Action Date Dose Rate Site diphenhydrAMINE (BENADRYL) capsule Given 07/09/2013 2:46 PM DIRECTOR CALL 25 mg 25 mg 25 mg (0.631 mg/kg), Oral, ONCE, On Suze 07/09/13 at 1439, For 1 dose documented in this encounter Active and Recently Administered Medications Times are shown in DIRECTOR CALL. Scheduled Medication Order 07/07/2013 07/08/2013 07/09/2013 diphenhydrAMINE (BENADRYL) capsule 25 mg (COMPLETED) 1446 (Given - Provider: Angela Talbot RN) 25 mg = 0.631 mg/kg, Oral, ONCE, Suze 07/09/13 at 1439, For 1 dose documented in this encounter
--- OUTSIDE RECORDS SUMMARY | 2022-04-10 10:30 | XMS_ITS | Encounter Summary ---
:2000 Author Organization [address] [place] [address] Care Team Providers Name Role Phone Unavailable Primary Care Provider Unavailable Reason for Visit Reason Onset Date Comments Symptoms 07/30/2013 still having respira tory symptoms Encounter Details Date Type Department Care Team Description 07/30/2013 Telephone [facility] Cordell Juarez Symp toms (still having Pediatric Specialty MD respiratory symptoms) Clinic [address] [facility] [address] [place] [address] [phone] Social History Tobacco Use Types Packs/Day Years [...] to go. The pcp, local hospital or [facility] wondering what Dr. Juarez thinks. I contacted Dr. Juarez and she gave mom a call and told her to get an appointment for him at their primary clinic. NICS SYSTEMS TECHNICIAN documented in this encounter Plan of Treatment Upcoming Encounters Date Type Specialty Care Team Description 07/27/2022 Ancillary Procedure Cardiology Cordell Juarez MD [address] [facility] [address] [place] [address] (Wo rk) 07/27/2022 Office Visit Cardiology Cordell Juarez MD [address] [place] [address] (Wo rk) documented as of this encounter Visit Diagnoses Not on filedocumented in this encounter
--- OUTSIDE RECORDS SUMMARY | 2022-04-10 10:30 | XMS_ITS | Encounter Summary ---
:2000 Author Organization [place] Address [address] [facility] [place] [address] Care Team Providers Name Role Phone Unavailable Primary Care Provider Unavailable Encounter Details Date Type Department Care Team Description 01/07/2013 Hospital Encounter [facility] LarryCordell blum MD [facility] [address] [facility] [address] [place] [address] [phone] Social History Tobacco Use Types Packs/Day Years [...] 07/27/2022 Ancillary Procedure Cardiology Cordell Juarez MD [address] [place] [address] (Arleen valdes) 07/27/2022 Office Visit Cardiology Cordell Juarez MD [address] [place] [address] (Arleen rk) documented as of this encounter Visit Diagnoses Not on filedocumented in this encounter
--- OUTSIDE RECORDS SUMMARY | 2022-04-10 10:30 | XMS_ITS | Encounter Summary ---
:2000 Author Organization [place] Address [address] [place] [address]. [place] [address] Care Team Providers Name Role Phone Unavailable Primary Care Provider Unavailable Encounter Details Date Type Department Care Team Description 01/07/2013 Orders Only [facility] Renea Fischer HYPOPLA STIC LEFT HEART SYND; Pediatric Specialty Colitis; [facility] [place] History of gastritis; [address] Hypoplas tic left heart [address] [place] [address] Social History Tobacco Use Types [...] Ancillary Procedure Cardiology Cordell Juarez MD [address] [place] [address] (Wo rk) 07/27/2022 Office Visit Cardiology Cordell Juarez MD [address] [place], [place] [id number] (Wo rk) documented as of this encounter [...] with platelets differential (01/07/2013 4:30 PM CDT) [facility] Method Time Signature WBC 3.7 (L) 4.0 - [facility] 11.0 [facility] 10e9/L [facility] RBC Count 5.16 3.7 - 5.3 [place] 10e12/L [facility] Hemoglobin 14.3 11.7 - [place] 15.7 g/dL [facility] Hematocrit 42.8 35.0 - [place] 47.0 % [facility] MCV 83 77 - 100 [facility] MCH 27.7 26.5 - [facility] 33.0 pg [facility] MCHC 33.4 31.5 - [place] 36.5 g/dL [facility] RDW 13.7 10.0 - [place] 15.0 % [facility] Platelet Count 229 150 - 450 [place] 10e9[facility] Diff Method Automated [place] Method [facility] % Neutrophils 53.5 % [facility] % Lymphocytes 41.1 % [facility] % Monocytes 0.5 % [facility] % Eosinophils 4.1 % [facility] % Basophils 0.8 % [facility] % Immature 0.0 % [place] Granulocytes [facility] Absolute 2.0 1.3 - 7.0 [place] Neutrophil [address] [place] [address] LAB Absolute 1.5 1.0 - 5.[address] [place] Lymphocytes [address] LAB Absolute 0.0 0.0 - 1.3 [place] Monocytes 10e9[facility] Absolute 0.2 0.0 - 0.7 [place] Eosinophils 10e9/[facility] Absolute 0.0 0.0 - 0.2 [place] Basophils 10e9[facility] Abs Immature 0.0 0 - 0.4 [place] Granulocytes [address] [place] [address] LAB Specimen Anatomical Collection Method Collection Time Receive d Time (Source) Location / / Volume Laterality Blood specimen 01/07/2013 4:30 PM 013 4:41 (specimen) CDT PM CDT Seth Andrews APRN MANAGER CRITICAL CARE UNIT LAB - BLOOD ORDERABLE S Performing Organization Address City/State/ZIP Code Phon e Number M [facility] [address], [place] [address] [facility] CRP inflammation (01/07/2013 4:30 PM CDT) P athologist Signature CRP Inflammation <5.0 0.0 - 8.0 [place] mg/L [facility] Specimen Anatomical Collection Method Collection Time Receive d Time (Source) Location / / Volume Laterality Blood specimen 01/07/2013 4:30 PM 013 4:41 (specimen) CDT PM CDT Seth Andrews APRN MANAGER CRITICAL CARE UNIT LAB - BLOOD ORDERABLE S Performing Organization Address City/[facility]/ZIP Code Phon e Number [facility] [address], [place] [address] [facility] Erythrocyte sedimentation rate auto (01/07/2013 4:30 PM CDT) athologist Signature Sed Rate 5 0 - 15 mm/h [facility] Specimen Anatomical Collection Method Collection Time Receive d Time (Source) Location / / Volume Laterality Blood specimen 01/07/2013 4:30 PM 013 4:41 (specimen) CDT PM CDT Seth Andrews APRN MANAGER CRITICAL CARE UNIT LAB - BLOOD ORDERABLE S Performing Organization Address City/[facility]/ZIP Code Phon e Number [facility] [address], [place] [address] [facility] Tissue transglutaminase magdi IgA and IgG (01/07/2013 4:30 PM CDT) [facility] gist Method Time Signature Tissue <1.0 U/mL [facility] Transglutaminase Interpretation: ??Negative UNIVERSITY Antibody IgA CAMPUS LABS Tissue 1.5 U/mL [facility] Transglutaminase Magdi UNIVERSIT Y IgG CAMPUS LABS Comment: Interpretation: Negative Specimen Anatomical Collection Method Collection Time Receive d Time (Source) Location / / Volume Laterality Blood specimen 01/07/2013 4:30 PM 013 4:41 (specimen) CDT PM CDT Seth Andrews APRN MANAGER CRITICAL CARE UNIT LAB - BLOOD ORDERABLE S Performing Organization Address City/State/ZIP Code Phon e Number [facility] [address] [place] [address] [facility] UNIVERSITY CAMP[facility] LABS IgA (01/07/2013 4:30 PM CDT) P athologist Signature IGA 148 70 - 380 [facility] UNIVERSITY mg/dL CAMPUS LABS Specimen Anatomical Collection Method Collection Time Receive d Time (Source) Location / / Volume Laterality Blood specimen 01/07/2013 4:30 PM 013 4:41 (specimen) CDT PM CDT Seth Namnathaly Andrews APRN MANAGER CRITICAL CARE UNIT LAB - BLOOD ORDERABLE S Performing Organization Address City/State/ZIP Code Phon e Number [address] [address] [facility] Comprehensive metabolic panel (01/07/2013 4:30 PM CDT) [facility] Method Time Signature Sodium 142 133 - 143 [place] mmol/L [facility] Potassium 3.9 3.4 - 5.3 [place] mmol/L [facility] Chloride 102 98 - 110 [place] mmol/L [facility] Carbon Dioxide 26 20 - 32 [place] mmol/L [facility] Anion Gap 14 6 - 17 [place] mmol/L [facility] Glucose 82 60 - 99 [place] mg/dL [facility] Urea Nitrogen 15 5 - 24 [place] mg/dL [facility] Creatinine 0.56 0.39 - [place] 0.73 [facility] mg/dL [facility] GFR Estimate GFR not mL/min/1. [facility] calculated, 7m2 [facility] patient <16 HOSPITAL LAB years old. GFR Estimate If GFR not mL/min/1. [facility] Black calculated, 7m2 [facility] patient <16 HOSPITAL LAB years old. Calcium 9.1 8.7 - [facility] 10.8 [facility] mg/dL [facility] Bilirubin Total 0.8 0.2 - 1.3 [place] mg/dL [facility] Albumin 4.4 3.9 - 5.1 [place] g/dL [facility] Protein Total 7.3 6.8 - 8.8 [place] g/dL [facility] Alkaline 448 130 - 530 [place] Phosphatase U/L [facility] ALT 32 0 - 50 [place] U/L [facility] AST 33 0 - 35 [place] U/L [facility] Specimen Anatomical Collection Method Collection Time Receive d Time (Source) Location / / Volume Laterality Blood specimen 01/07/2013 4:30 PM 013 4:41 (specimen) CDT PM CDT Cordell Juarez MD LAB - BLOOD ORDERABLES Performing Organization Address City/State/ZIP Code Phon e Number [address], [place] [address] [facility] N terminal pro BNP outpatient (01/07/2013 4:30 PM CDT) athologist [facility] N-Terminal Pro 74 0 - 240 [place] Bnp pg/mL [facility] Specimen Anatomical Collection Method Collection Time Receive d Time (Source) Location / / Volume Laterality Blood specimen 01/07/2013 4:30 PM 013 4:41 (specimen) CDT PM CDT Cordell Juarez MD LAB - BLOOD ORDERABLES Performing Organization Address City/State/ZIP Code Phon e Number [facility] [address], [place] [address] [facility] TSH with free T4 reflex (01/07/2013 4:30 PM CDT) athologist [facility] TSH 1.75 0.4 - 5.0 [facility]/L [facility] Specimen Anatomical Collection Method Collection Time Receive d Time (Source) Location / / Volume Laterality Blood specimen 01/07/2013 4:30 PM 013 4:41 (specimen) CDT PM CDT Cordell Juarez MD LAB - BLOOD ORDERABLES Performing Organization Address City/State/ZIP Code Phon e Number [facility] [address], [place] [address] [facility] IgG (01/07/2013 4:30 PM CDT) athologist Signature IGG 1,210 695 - 1,620 [facility] mg/dL CAMPUS LABS Specimen Anatomical Collection Method Collection Time Receive d Time (Source) Location / / Volume Laterality Blood specimen 01/07/2013 4:30 PM 013 4:41 (specimen) CDT PM CDT Cordell Juarez MD LAB - BLOOD ORDERABLES Performing Organization Address City/State/ZIP Code Phon e Number [facility] [address] [place] [address] [facility]S (ABNORMAL) INR (01/07/2013 4:30 PM CDT) athologist Signature INR 2.25 (H) 0.86 - 1.14 [facility] Specimen Anatomical Collection Method Collection Time Receive d Time (Source) Location / / Volume Laterality Blood specimen 01/07/2013 4:30 PM 013 4:41 (specimen) CDT PM CDT Cordell Juarez MD LAB - BLOOD ORDERABLES Performing Organization Address City/[facility] Phon e Number [facility] [address], [place] [address] [facility] Alpha 1 antitrypsin stool (01/06/2013 9:45 PM CDT) [facility] Method Time Signature Rktvo-8-Xmica <0.12 [facility] Stool Reference range: 0.00 to 0.62 [facility] Unit: mg/g HOSPITAL LAB (Note) Performed by [employer], [address] [place] [id number] [email or web address], Aden Camejo MD, Lab. Director Specimen Anatomical Collection Method Collection Time Receive d Time (Source) Location / / Volume Laterality Stool specimen 01/06/2013 9:45 PM 013 3:47 (specimen) CDT PM CDT Cordell Juarez MD LAB - STOOLS ORDERABLES Performing Organization Address City/[facility] Code Phon e Number [facility] [address], [place] [address] [facility] documented in this encounter Visit Diagnoses Diagnosis 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 Colitis Other and unspecified noninfectious tesha roenteritis and colitis History of gastritis Personal history of other diseases of di gestive system 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
--- OUTSIDE RECORDS SUMMARY | 2022-04-10 10:30 | XMS_ITS | Encounter Summary ---
:2000 Author Organization [place] Address [facility] [place] [address] Care Team Providers Name Role Phone Unavailable Primary Care Provider Unavailable Reason for Visit Reason Onset Date Comments Refill Request 05/18/2013 Encounter Details Date Type Department Care Team Description 05/18/2013 Refill [facility] Pediatric Jay Andrews, Refill Request Specialty Clinic [facility] COLLECTOR OF [employer]INTING AGENT [address] [place] [facility] [address] [place] [address] [place] [address] [phone] Social History Tobacco Use Types Packs/Day Years [...] continuing on the omeprazole, and she confirmed CT [facility] documented in this encounter Plan of Treatment Upcoming Encounters Date Type Specialty Care Team Description 07/27/2022 Ancillary Procedure Cardiology Cordell Juarez MD [address] [place], [place] [address] (Wo rk) 07/27/2022 Office Visit Cardiology Cordell Juarez MD [address] [place], [place] [address] (Wo rk) documented as of this encounter Visit Diagnoses Diagnosis History of gastritis - Primary Personal history of other diseases of di gestive system documented in this encounter
--- OUTSIDE RECORDS SUMMARY | 2022-04-10 10:30 | XMS_ITS | Encounter Summary ---
:2000 Author Organization [place] Address [facility] [place] [address] Care Team Providers Name Role Phone Unavailable Primary Care Provider Unavailable Encounter Details Date Type Department Care Team Description 07/24/2013 Orders Only [facility] Demirel, Mike, Hypopla stic left heart [facility] MD syndrome (Primary Dx) Specialty Clinic [address] [place], [place] [address] [address], 3rd Flr [address] [phone] [place], [place] (Fax) [address] Social History Tobacco Use [...] Ancillary Procedure Cardiology Cordell Juarez MD [address] [place] [phone] (Wo rk) 07/27/2022 Office Visit Cardiology Cordell Juarez MD [address] [place], [place] [address] (Wo rk) documented as of this encounter Procedures Procedure Name Priority Date/Time Associated Diagnosis Comme nts HC RESPIRATORY FLOW Routine 07/24/2013 11:34 AM Hypoplastic le ft heart VOLUME LOOP BLACK LEATHER BUFFER syndrome HIM PROCEDURE SCAN Routine 07/24/2013 Hypoplastic left heart syndrome documented in this encounter Results PFT Procedure Scan - HIM Procedure Scan (07/24/2013) Narrative This result has an attachment that is no t available. Mike Patrick MD PROCEDURES documented in this encounter 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
--- OUTSIDE RECORDS SUMMARY | 2022-04-10 10:30 | XMS_ITS | Encounter Summary ---
:2000 Author Organization [address] [place] [address] Care Team Providers Name Role Phone Unavailable Primary Care Provider Unavailable Encounter Details Date Type Department Care Team Description 04/15/2014 Telephone [facility] Pediatric Cordell Juarez MD Specialty Clinic [address] [facility] [place] [address] [facility] [place] [address] [phone] Social History Tobacco Use Types Packs/Day Years [...] Cordell Juarez MD [address] [place] [address] (Wo rk) 07/27/2022 Office Visit Cardiology Cordell Juarez MD [address] [place] [address] (Wo rk) documented as of this encounter Visit Diagnoses Not on filedocumented in this encounter
--- OUTSIDE RECORDS SUMMARY | 2022-04-10 10:30 | XMS_ITS | Encounter Summary ---
:2000 Author Organization [address] [place] [address] Care Team Providers Name Role Phone Unavailable Primary Care Provider Unavailable Reason for Visit Reason Onset Date Comments Refill Request 09/03/2013 Encounter Details Date Type Department Care Team Description 09/03/2013 Refill [facility] Pediatric Larry Cordell MD Refill Request Specialty Clinic [address] [address] [place] [address] [place] [place] [address] [phone] Social History Tobacco Use Types Packs/Day Years [...] AM CDT The Rx came through from [employer] for 4 mg. The last Rx you wrote for them was for 2 mg taking it Saturday, Saturday, Saturday, and Saturday. Not sure which one you wanted him on. documented in this encounter Plan of Treatment Upcoming Encounters Date Type Specialty Care Team Description 07/27/2022 Ancillary Procedure Cardiology Cordell Juarez MD [address] [facility] [address] [place] [address] (Wo rk) 07/27/2022 Office Visit Cardiology Cordell Juarez MD [address] [facility] [address] [place] [address] (Wo rk) documented as of this encounter Visit Diagnoses Diagnosis S/P Fontan procedure - Primary Other postprocedural status documented in this encounter
--- OUTSIDE RECORDS SUMMARY | 2022-04-10 10:30 | XMS_ITS | Encounter Summary ---
:2000 Author Organization [place] Address [facility] [place] [address] Care Team Providers Name Role Phone Unavailable Primary Care Provider Unavailable Encounter Details Date Type Department Care Team Description 05/10/2014 Orders Only [facility] Cordell Juarez Atyp icageovanny chest pain (Primary Dx); Pediatric Specialty Heterotaxy; Clinic [address] Single ventricle, heterotaxi a syndrome [address] [place] [address] [phone] Social History Tobacco Use Types Packs/Day Years [...] Ancillary Procedure Cardiology Cordell Juarez MD [address] [place] [address] [address] [place] [address] (Wo rk) 07/27/2022 Office Visit Cardiology Larry, Cordell skelton MD [address] [place] [address] (Wo rk) documented as of this encounter Results MRA Chest w Contrast Angiogram (05/24/2014 10:53 AM PERIODONTIST) Anatomical Region Laterality Modality Chest, SUBRAD IR PROCEDURE, UMP MR MRA M agnetic Resonance Specimen (Source) Anatomical Location Collection Method / Collectio n Time Received Time / Laterality Volume Impressions 05/24/2014 4:40 PM PERIODONTIST IMPRESSION: 1. Double outlet right ventricle, hypopl [...] Constantine ENG MD Narrative 05/24/2014 4:40 PM PERIODONTIST MR CARDIAC W CONTRAST STRESS AND FLOW, MRA CHEST W CONTRAST [id number]/8/2014 10:53 AM COMPARISON: ??None HISTORY: Double outlet [...] and volumetric postprocessing was perfor med by application infrastructure engineer on an independent workstation. FINDINGS: SITUS: There [...] AND FLOW, M RA CHEST W CONTRAST [id number]/8/2014 10:53 AM COMPARISON: None HISTORY: Double outlet [...] and volumetric postprocessing was perfor med by application infrastructure engineer on an independent workstation. FINDINGS: SITUS: There [...] & stress & flow (05/24/2014 10:53 AM PERIODONTIST) Anatomical Region Laterality Modality Cardio, SUBRAD MR BODY, UMP MR CHEST Mag netic Resonance Specimen (Source) Anatomical Location Collection Method / Collectio n Time Received Time / Laterality Volume Impressions 05/24/2014 4:40 PM PERIODONTIST IMPRESSION: 1. Double outlet right ventricle, hypopl [...] Constantine ENG MD Narrative 05/24/2014 4:40 PM PERIODONTIST MR CARDIAC W CONTRAST STRESS AND FLOW, MRA CHEST W CONTRAST [id number]/8/2014 10:53 AM COMPARISON: ??None HISTORY: Double outlet [...] and volumetric postprocessing was perfor med by application infrastructure engineer on an independent workstation. FINDINGS: SITUS: There [...] AND FLOW, M RA CHEST W CONTRAST [id number]/8/2014 10:53 AM COMPARISON: None HISTORY: Double outlet [...] and volumetric postprocessing was perfor med by application infrastructure engineer on an independent workstation. FINDINGS: SITUS: There [...]
--- OUTSIDE RECORDS SUMMARY | 2022-04-10 10:30 | XMS_ITS | Encounter Summary ---
:2000 Author Organization [place] Address [facility] [place] [address] Care Team Providers Name Role Phone Unavailable Primary Care Provider Unavailable Reason for Visit Reason Onset Date Comments Refill Request 05/25/2013 Encounter Details Date Type Department Care Team Description 05/25/2013 Refill [facility] Pediatric Jay Andrews, Refill Request Specialty Clinic [facility] INSTRUCTIONAL SYSTEMS SPECIALIST CTO [address] [place] [facility] [address] [place] [address] [place] [address] [phone] Social History Tobacco Use Types Packs/Day Years [...] Cardiology Cordell Juarez MD [address] [facility] [address] [place] [address] (Wo rk) 07/27/2022 Office Visit Cardiology Larry, Cordell skelton MD [address] [place] [address] (Wo rk) documented as of this encounter Visit Diagnoses Diagnosis History of gastritis - Primary Personal history of other diseases of di gestive system documented in this encounter
--- OUTSIDE RECORDS SUMMARY | 2022-04-10 10:30 | XMS_ITS | Encounter Summary ---
:2000 Author Organization [place] Address [address] [place] [address]. [place] [address] Care Team Providers Name Role Phone Unavailable Primary Care Provider Unavailable Reason for Visit (Routine) - Closed Specialty Diagnoses / Procedures Referred By Contact Refer red To Contact Radiology / Radiology. Diagnoses EPIC ORDER Sched with mom Jaimie [phone] Ur Mri Procedures MR CARDIAC W STRESS AND FLOW [address] [place] [phone] Phone: Referral ID Status Reason Start Date Expiration Date Visits Requ ested Visits Authorized [id number] Closed 05/18/2014 05/18/2015 1 1 Encounter Details Date Type Department Care Team Description 05/24/2014 Hospital Encounter [facility] Cordell Juarez , Atypical chest pain; [facility] Imaging Single ventricle, heterotaxia syndrome [address] [place] [address] [place] [id number] Social History Tobacco Use Types Packs/Day Years [...] 07/27/2022 Ancillary Procedure Cardiology Cordell Juarez MD [address] [place] [address] [address] (Wo rk) 07/27/2022 Office Visit Cardiology Cordell Juarez MD [address] [place] [address] [facility] [address] [address] (Wo rk) documented as of this encounter Procedures Procedure Name Priority Date/Time Associated Diagnosis Comme nts MR CARDIAC W Routine 05/24/2014 10:[address] pain Results for this CONTRAST STRESS AND BUTTON SPINDLER Single ventricle, pro cedure are in FLOW heterotaxia syndrome the res ults section. documented in this encounter Results MRI Cardiac w/contrast & stress & flow (05/24/2014 10:53 AM BUTTON SPINDLER) Anatomical Region Laterality Modality Cardio, SUBRAD MR BODY, UMP MR CHEST Mag [facility] Res[facility] Specimen (Source) Anatomical Location Collection Method / Collectio n Time Received Time / Laterality Volume Impressions 05/24/2014 4:40 PM BUTTON SPINDLER IMPRESSION: 1. Double outlet right ventricle, hypopl [...] Constantine ENG MD Narrative 05/24/2014 4:40 PM BUTTON SPINDLER MR CARDIAC W CONTRAST STRESS AND FLOW, MRA CHEST W CONTRAST [id number]/8/2014 10:53 AM COMPARISON: ??None HISTORY: Double outlet [...] and volumetric postprocessing was perfor med by dollyman on an independent workstation. FINDINGS: SITUS: There [...] AND FLOW, M RA CHEST W CONTRAST [id number]/8/2014 10:53 AM COMPARISON: None HISTORY: Double outlet [...] and volumetric postprocessing was perfor med by dollyman on an independent workstation. FINDINGS: SITUS: There [...] Site gadopentetate dimeglumine Given 05/24/2014 11:00 AM BUTTON SPINDLER 15 mLs (MAGNEVIST) IV solution 15 mL 15 mL, Intravenous, ONCE, On Sat05/24/14 at 1100, For 1 dose documented in this encounter
--- OUTSIDE RECORDS SUMMARY | 2022-04-10 10:30 | XMS_ITS | Encounter Summary ---
:2000 Author Organization [place] Address [address] [facility] [place] [address] Care Team Providers Name Role Phone Unavailable Primary Care Provider Unavailable Encounter Details Date Type Department Care Team Description 05/14/2014 Orders Only [facility] Cordell Juarez, [facility] Peds HEART SYND (Primary Electrocardiology [address] [facility] Dx) [address] [place] [address] [phone] (Wo rk) Social History Tobacco Use Types [...] 07/27/2022 Ancillary Procedure Cardiology Cordell Juarez MD [facility] [address] [place] [address] (Wo rk) 07/27/2022 Office Visit Cardiology Cordell Juarez MD [facility] [address] [place] [address] (Wo rk) documented as of this encounter Procedures Procedure Name Priority Date/Time Associated Diagnosis Comme nts EKG 12 LEAD - Routine 04/15/2014 12:17 PM Results for this PEDIATRIC CDT procedure are i n the results section. documented in this encounter Results EKG 12 lead, complete - pediatric (04/15/2014 12:17 PM CDT) [facility] gist Method Time Signature Interpretation ECG Click [...]
--- OUTSIDE RECORDS SUMMARY | 2022-04-10 10:30 | XMS_ITS | Encounter Summary ---
:2000 Author Organization [address] [place] [address] Care Team Providers Name Role Phone Unavailable Primary Care Provider Unavailable Reason for Visit Reason Onset Date Comments Refill Request 04/16/2014 Encounter Details Date Type Department Care Team Description 04/16/2014 Refill [facility] Pediatric Larry Cordell MD Refill Request Specialty Clinic [address] [place] [address] [facility] [place] [address] [phone] Social History Tobacco Use Types Packs/Day Years [...] Cordell Juarez MD [address] [place], [place] [address] (Wo rk) 07/27/2022 Office Visit Cardiology Cordell Juarez MD [address] [place], [place] [address] (Wo rk) documented as of this encounter Visit Diagnoses Diagnosis S/P Fontan procedure Other postprocedural status documented in this encounter
--- OUTSIDE RECORDS SUMMARY | 2022-04-10 10:30 | XMS_ITS | Encounter Summary ---
:2000 Author Organization [place] Address [facility] [place] [address] Care Team Providers Name Role Phone Unavailable Primary Care Provider Unavailable Encounter Details Date Type Department Care Team Description 01/06/[address] [facility] Seth Andrews Co litis; [facility] JONATHAN Petit History of gastritis [address] DATA WAREHOUSE MANAGER [place], [place] [address] [facility] [place] [address] [address] [address] [place], [place] [address] Social History Tobacco Use Types Packs/Day Years [...] 07/27/2022 Ancillary Procedure Cardiology Cordell Juarez MD [address] [place], [place] [address]GISELLE MAR[address]LLI [address] [place] [address] (Wo rk) 07/27/2022 Office Visit Cardiology [facility] [address] [facility] [address] [address] (Wo rk) documented as of this encounter [...] 12-lead, tracing only (01/07/2013 2:37 PM CDT) [facility] Method Time Signature Interpretation ECG Click View RADIOLOGY Image link RESULTS to view waveform and result Specimen (Source) Anatomical Collection Method Collection Time Re ceived Time Location / / Volume Laterality 01/07/2013 2:37 PM CDT Doctor Unknown MD ECG ORDERABLES Performing Organization Address City/State/ZIP Code Phon e Number RADIOLOGY RESULTS [facility] Miscellaneous Test (01/06/2013 9:45 PM CDT) [facility] Method Time Signature Result SEE NOTE [facility] (Note) [facility] Test name ?Result ?? Units ??RefIntl [facility] Calprotectin, Fecal ? 16 ? ug/g <=50 INTERPRETIVE INFORMATION: Calprotectin, Fecal 50 ug/g or less: Normal 51-120 ug/g: Borderline elevated, test should be re-evaluated in 4-6 weeks. 121 ug/g or greater: Abnormal, suggestive of inflammatory bowel disease (IBD). Performed by [employer], [address] [place] [address] [email or web address], Aden Camejo MD, Lab. Director Test Name CALPROTECTIN [facility] Send Outs [phone],303 [facility] Send Outs [facility] Specimen Anatomical Collection Method Collection Time Receive d Time (Source) Location / / Volume Laterality 01/06/2013 9:45 PM 3 3:56 CDT PM CDT Seth Andrews APRN, CNP LAB - BLOOD ORDERABLE S Performing Organization Address City/State/ZIP Code Phon e Number [facility] [address] [place], [place] [address] [facility] Occult blood stool (01/06/2013 9:45 PM CDT) P athologist Signature Occult Blood Negative NEG [facility] Specimen Anatomical Collection Method Collection Time Receive d Time (Source) Location / / Volume Laterality 01/06/2013 9:45 PM 3 3:47 CDT PM CDT Seth Andrews APRN, CNP LAB - STOOLS ORDERABL ES Performing Organization Address City/State/ZIP Code Phon e Number [facility] [address] [place], [place] [address] [facility] documented in this encounter Visit Diagnoses Diagnosis Colitis Other and unspecified noninfectious tesha roenteritis and colitis History of gastritis Personal history of other diseases of di gestive system documented in this encounter
--- OUTSIDE RECORDS SUMMARY | 2022-04-10 10:30 | XMS_ITS | Encounter Summary ---
:2000 Author Organization [place] Address [facility] [place] [address] Care Team Providers Name Role Phone Unavailable Primary Care Provider Unavailable Encounter Details Date Type Department Care Team Description 05/25/2013 Orders Only [facility] Loly Jasso S/P Brenda an procedure (Primary Dx); [facility] Pediatric NADEEM Rowe History of gastritis [facility] [address] [place] [address] [place] [address] [phone] (Wo rk) Social History Tobacco Use Types [...] MD [address] [facility] [address] [place] [address] (Wo rk) 07/27/2022 Office Visit Cardiology Cordell Juarez, MD [address] [facility] [address] [place] [address] (Wo rk) documented as of this encounter Visit Diagnoses Diagnosis S/P Fontan procedure - Primary Other postprocedural status History of gastritis Personal history of other diseases of di gestive system documented in this encounter
--- OUTSIDE RECORDS SUMMARY | 2022-04-10 10:30 | XMS_ITS | Encounter Summary ---
:2000 Author Organization [place] Address [address] [place] [address] Care Team Providers Name Role Phone Unavailable Primary Care Provider Unavailable Reason for Visit Reason Comments Consult Hypoplastic left heart syndr ome, previous pneumonia & still having SOB Encounter Details Date Type Department Care Team Description 07/24/2013 Office Visit [facility] Demirel, Mike, SOB ( [facility] breath) (Primary Dx) Specialty Clinic [address] [place], [place] [address] [address], 3rd Flr [address] [phone] [place], [place] (Fax) [phone] Social History Tobacco Use [...] Comments Blood Pressure 111/70 07/24/2013 11:10 AM PHYSICAL METEOROLOGIST Pulse 82 07/24/2013 11:10 AM PHYSICAL METEOROLOGIST Temperature 36.9 ??C (98.5 ??F) 07/24/2013 11:10 AM PHYSICAL METEOROLOGIST Respiratory Rate 20 07/24/2013 11:10 AM PHYSICAL METEOROLOGIST Oxygen Saturation 98% 07/24/2013 11:10 AM PHYSICAL METEOROLOGIST Inhaled Oxygen Concentration - - Weight 39.9 kg (87 lb 15.4 oz) 07/24/2013 11:10 AM PHYSICAL METEOROLOGIST Height 150 cm (4' 11.06) 07/24/2013 11:10 AM PHYSICAL METEOROLOGIST Body Mass Index 17.73 07/24/2013 11:10 AM PHYSICAL METEOROLOGIST Body Mass Index Percentile 32.60 % 07/24/2013 11:[address] Growth Chart: [facility] (Boys, 2-20 Years) documented in this encounter Patient Instructions Patient InstructionsCecilia Garcia RN - 07/24/2013 11:56 AM CST Follow up in 3 weeks. Please call with any questions or concerns: [phone]. Thanks! ICAL METEOROLOGIST documented in this encounter Progress Notes Mike Patrick MD - 07/24/2013 4:48 PM CST Pediatric Pulmonology Initial Visit Note 07/24/2013 Jude Bills : 2000 MR: [id number] Referring Physician: Deng Wallace MD Dear Dr. 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 He had catheter closure of his Fontan fenestration at the [facility] in January 2007. According to his adopting mother Jude has no historyof any respiratory disease other recurrent wheezing first few years of life. He presented to the ED 2 weeks ago with mild cough and headache. He was diagnosed with pneumonia based on radiologic findings of RLL opacities. He had mild fever. He was treated with 8-obf-atiars of azithromycin. His mother states that Jude [...] [place] 26[place]hkm[age][place]vyy and was adopted at 2-year-old. His mother [...] associated with urticarial rash. He already received 8-eep-jkcdvr of azithromycin. We recommended Jude to be [...] arise. Sincerely, Mike Patrick MD Pediatric Pulmonology [facility] Pager: [phone] Email: [email or web address] ICAL METEOROLOGIST documented in this encounter Nursing Notes 07/24/2013 [...] 07/27/2022 Ancillary Procedure Cardiology Cordell Juarez MD [address] [facility] [place], [place] [id number] (Arleen valdes) 07/27/2022 Office Visit Cardiology Cordell Juarez MD [address] [facility] [address] [place], [place] [address] (Arleen valdes) documented as of this encounter Procedures Procedure Name Priority Date/Time Associated Diagnosis Comme nts PFT GENERAL LAB Routine 07/24/2013 10:47 AM SOB (shortness of Results for this TESTING PHYSICAL METEOROLOGIST breath) procedure are i n the results section. documented in this encounter Results Pulmonary function test procedure (07/24/2013 10:47 AM PHYSICAL METEOROLOGIST) [facility] Method Time Signature Pulmonary COPATH Function Test Name: ? NegarJude mcginnis ?ID: ?[id number] Doctor: ?Demirel, Mike ?Height: ?150.00 cm ?Age: [...] / / Volume Laterality 07/24/2013 10:47 AM PHYSICAL METEOROLOGIST Juliana Neal VISUAL DESIGNER SKIN CARE INSTRUCTOR PFT ORDERABLES Performing Organization Address City/State/ZIP Code Phon e Number COPATH documented in this encounter Visit Diagnoses Diagnosis SOB (shortness of breath) - Primary Shortness of breath documented in this encounter
--- OUTSIDE RECORDS SUMMARY | 2022-04-10 10:30 | XMS_ITS | Encounter Summary ---
:2000 Author Organization [place] Address [facility] [place] [address] Care Team Providers Name Role Phone Unavailable Primary Care Provider Unavailable Reason for Visit Reason Comments RECHECK Here for follow up for heart check Encounter Details Date Type Department Care Team Description 01/07/2013 Office Visit [facility] LarryCordell, [facility] PLASTIC LEFT Pediatric Specialty HEART SYND (Primary Clinic [address] Dx) [address] [place] [phone] Social History Tobacco Use Types Packs/Day Years [...] 01/07/2013 2:35 PM CD T Growth Chart: [facility] (Boys, 2-20 Years) documented in this encounter Patient Instructions Patient InstructionsCordell Juarez MD - 01/07/2013 3:54 PM CDT You were seen today in the Pediatric Cardiology Clinic at [facility] Cardiology Providers you [...] about today's visit, please call our clinic [phone] For after hours urgent needs call [phone] and ask to speak to the Pediatric Cardiology Physician electronic transaction implementer. For emergencies call [phone]. documented in this encounter Progress Notes Cordell Juarez MD - 02/25/2013 6:57 AM CDT Pediatric Cardiology Visit Patient: Jude Bills Date of : 2000 Age: 12 year 11 month old Date of Visit: Jan 07, 2013 PCP: Deng Wallace MD Dear Deng Mata MD: I had the pleasure of seeing your patient, Jude Bills, in the Pediatric Cardiology Clinic at [facility] in [place] on Jan 07, 2013. 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 He underwent a central shunt, followed by a Fortino procedure and completion of a Fontan procedure at the [facility] in cardiology tech. He had catheter closure of his Fontan fenestration at the [facility] in January 2007. Jude was [...] Jude is entering the 7th grade at [employer] in [place]. He is an active child who played [...] coumadi n, and gets INR's checked in [place] with a goal range of 2-2.5. He [...] FH/SH: Jude and his family Live in [place]. His mother is a nurse at [employer]. The kids are all changing schoold this [...] Jude and his dad, who is his project manager/team coach. If these episodes persist we may [...] Jude's care team. Sincerely, Cordell Juarez M.D. Rn Employee Health of Pediatrics Division of Pediatric Cardiology [facility] documented in this encounter Nursing Notes 01/07/2013 [...] Ancillary Procedure Cardiology Cordell Juarez MD [address] [place] [address] (Wo lucio) 07/27/2022 Office Visit Cardiology Cordell Juarez MD [address] [place], [place] [address] (Wo lucio) documented as of this encounter Procedures Procedure Name Priority Date/Time Associated Diagnosis Comme nts [facility] ELECTROCARDIOGRAM REPORT, Routine 01/08/2013 HYPOPLASTI C LEFT [...]
--- OUTSIDE RECORDS SUMMARY | 2022-04-10 10:31 | XMS_ITS | Encounter Summary ---
:2000 Author Organization [address] [place] [address] Care Team Providers Name Role Phone Unavailable Primary Care Provider Unavailable Reason for Visit Reason Onset Date Comments Clinic Care Coordination - Follow-up 12/10/2012 Encounter Details Date Type Department Care Team Description 12/10/2012 Telephone [facility] Cordell Juarez, [facility] Pediatric Specialty MD Coordination - Clinic [address] Follow-up [address] [facility] [address] [place] [phone] Social History Tobacco Use Types Packs/Day Years [...] Cordell Juarez MD [address] [place] [address] (Arleen valdes) 07/27/2022 Office Visit Cardiology Cordell Juarez MD [address] [place] [address] (Arleen valdes) documented as of this encounter Visit Diagnoses Not on filedocumented in this encounter
--- OUTSIDE RECORDS SUMMARY | 2022-04-10 10:31 | XMS_ITS | Encounter Summary ---
:2000 Author Organization [place] Address [address] [place] [address]. [place] [address] Care Team Providers Name Role Phone Unavailable Primary Care Provider Unavailable Reason for Visit Reason Comments RECHECK here for echo and ekg for fo llow up for heart check Encounter Details Date Type Department Care Team Description 04/30/2012 Office Visit [facility] Cordlel Juarez HYPO PLASTIC LEFT HEART SYND (Primary Dx); Pediatric Specialty Hypoplastic left heart syndrome; Clinic [address] Encounter for long-term (cur rent) use of anticoagulants [address] [facility] [address] [place] [address] Social History Tobacco Use Types Packs/Day [...] Pressure 100/65 04/30/2012 11:01 AM right arm CURATOR Pulse 94 04/30/2012 11:01 AM CURATOR Temperature - - Respiratory Rate 20 04/30/2012 11:01 AM CURATOR Oxygen Saturation 97% 04/30/2012 11:01 AM CURATOR Inhaled Oxygen Concentration - - Weight 33.4 kg (73 lb 10.1 oz) 04/30/2012 11:01 AM CURATOR Height 139.5 cm (4' 6.92) 04/30/2012 11:01 AM CURATOR Body Mass Index 17.16 04/30/2012 11:01 AM CURATOR Body Mass Index Percentile 36.01 % 04/30/2012 11:01 AM CURATOR Growth Chart: [facility] (Boys, 2-20 Years) documented in this encounter Patient Instructions Patient InstructionsMaxine Sawyer MD - 04/30/2012 12:35 PM CST You were seen today in the Pediatric Cardiology Clinic at [facility] Cardiology [...] about today's visit, please call our clinic [phone] For after hours urgent needs call [phone] and ask to speak to the Pediatric Cardiology Physician tongue and groove machine operator. For emergencies call [phone]. TOR documented in this encounter Progress Notes Cordell Juarez MD - 05/01/2012 11:18 AM CST Pediatric Cardiology Visit Patient: Jude Bills Date of : 2000 Age: [age] year old 2 month old Date of Visit: Apr 30, 2012 PCP: Deng Wallace MD Dear Deng Mata MD: I had the pleasure of seeing your patient, Jdue Bills, in the Pediatric Cardiology Clinic at [facility] in [place] on Apr 30, 2012. 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 He underwent a central shunt, followed by a Fortino procedure and completion of a Fontan procedure at the [facility] inearly childhood. He had catheter closure of his Fontan fenestration at the [facility] in January 2007. Jude was last seen [...] Dominga Ngo in Pediatric GI at the [facility] who is currently trying him off dairy [...] no significant cardiovascular symptoms and good exercise rayn ance at this time. He remains very [...] and edited this note. Cordell Juarez M.D. Educational Psychology Teacher of Pediatrics Division of Pediatric Cardiology [facility] TOR documented in this encounter Nursing Notes 04/30/2012 11:00 AM CST >> DELICIA IZAGUIRRE Wed Apr 30, 2012 11:04 AM Informant- [...] 07/27/2022 Ancillary Procedure Cardiology Cordell Juarez MD [address] [place] [address] (Wo rk) 07/27/2022 Office Visit Cardiology Cordell Juarez MD [address] [facility] [address] [place], [place] [address] (Wo rk) documented as of this encounter Procedures Procedure Name Priority Date/Time Associated Comments Diagnosis ECHO PEDIATRIC COMPLETE Routine 04/30/2012 11:36 Results for this AM CURATOR procedure are i n the results section. [facility] ELECTROCARDIOGRAM Routine 04/30/2012 HYPOPLASTIC LEFT REPORT, SUBSEQUENT - ED HEART SYND ONLY documented in this encounter Results Echo pediatric complete (04/30/2012 11:36 AM CURATOR) Anatomical Region Laterality Modality Echocardiography Specimen (Source) Anatomical Collection Method Collection Time Re ceived Time Location / / Volume Laterality 04/30/2012 11:36 AM CURATOR Impressions 05/01/2012 12:48 PM CURATOR PEDIATRIC ECHOCARDIOGRAM ?? [facility] ? ?Echocardiogram Lab ? Age: 801/31/2000 ?Wt: ??33 .4 kg ?Ht: 139 cm ? BSA: 1.1 m2 ? BP: ??100/65 ? [employer] ? Lamp Tester And Inspector: ??kb INDICATION: Fontan with device closed (fenestration) [...] ventricle appears s omewhat small. ??There is utgf-cg-lhjpt ventricular hypertrophy. ? ?There is a large [...] m/sec. ??There is no evidence of a yqpb-og-yuznx shunt at atrial, ventricular or great artery leve ls. ? Artemio Silva MD-Pager [phone] ?? Gayathri Ayala MD-Pager [phone] ?? Jorge Link MD-Pager [phone] or [phone] Cordell Juarez MD-Pager [phone] ?? Jayson Bailey MD-Pager [phone] Vilma Rucker MD-Pager [phone] Constantine Herrera MD-Pager # [phone] Temo Mccord MD - Pager ?? Cordell Juarez MD CV PEDS ECHO ORDERABLES ELECTROCARDIOGRAM REPORT (04/30/2012) Narrative This result has an attachment that is no t available. Cordell Juarez MD PROCEDURES documented in this encounter Visit Diagnoses Diagnosis HYPOPLASTIC LEFT HEART SYND - Primary Hypoplastic left heart syndrome [facility] (current) use of anticoagulant s Long-term (current) use of anticoagulant s documented in this encounter
--- OUTSIDE RECORDS SUMMARY | 2022-04-10 10:31 | XMS_ITS | Encounter Summary ---
:2000 Author Organization [place] Address [address] [place] [address] Care Team Providers Name Role Phone Unavailable Primary Care Provider Unavailable Reason for Visit Reason Onset Date Comments Anticoagulation 05/30/2011 Encounter Details Date Type Department Care Team Description 05/30/[address] [facility] Madhavi Del Real RN Anticoagulation Anticoagulation Clin [address] [phone] Social History Tobacco Use Types Packs/Day [...] Sat06/02/11 Current INR Value 3.[address] [facility] Lab Desired Lab Goal Range 2.00 - [...] Results Given By: MADHAVI DEL REAL RN MEDICAL SURGICAL documented in this encounter Plan of Treatment Upcoming Encounters Date Type Specialty Care Team Description 07/27/2022 Ancillary Procedure Cardiology Cordell Juarez MD [address] [place] [address] (Wo rk) 07/27/2022 Office Visit Cardiology Cordell Juarez MD [address] [place] [address] (Arleen rk) documented as of this encounter Visit Diagnoses Not on filedocumented in this encounter
--- OUTSIDE RECORDS SUMMARY | 2022-04-10 10:31 | XMS_ITS | Encounter Summary ---
:2000 Author Organization [place] Address [address] [place] [address] Care Team Providers Name Role Phone Unavailable Primary Care Provider Unavailable Reason for Visit Reason Onset Date Comments Anticoagulation 06/07/2011 Encounter Details Date Type Department Care Team Description 06/07/2011 Telephone [facility] Bayron Page , Anticoagulation Anticoagulation Clin ic [facility] [address] [place], [place] [phone] [facility] [phone] [place] [address] [address] [place] [address] (Wo rk) Social History Tobacco Use Types Packs/Day Years Used Date Smoking Tobacco: Never Comments: none at home Alcohol Use Standard Drinks/Week Comments Not Asked 0 (1 standard drink = 0.6 oz pure alcoho l) Sex Assigned at Date Recorded Male 03/09/2019 1:21 PM CDT documented as of this encounter Miscellaneous Notes Telephone Encounter - Bayron Page [facility] - 06/07/2011 11:59 AM CST Current Warfarin [...] Mom Results Given By: Aamir Page RPH TESTER documented in this encounter Plan of Treatment Upcoming Encounters Date Type Specialty Care Team Description 07/27/2022 Ancillary Procedure Cardiology Cordell Juarez MD [address] [place], [place] [address] (Wo lucio) 07/27/2022 Office Visit Cardiology Cordlel Juarez MD [address] [place], [place] [address] (Wo lucio) documented as of this encounter Visit Diagnoses Not on filedocumented in this encounter
--- OUTSIDE RECORDS SUMMARY | 2022-04-10 10:31 | XMS_ITS | Encounter Summary ---
:2000 Author Organization [place] Address [address] [place] [address] Care Team Providers Name Role Phone Unavailable Primary Care Provider Unavailable Reason for Visit Reason Onset Date Comments Anticoagulation 12/05/2011 Encounter Details Date Type Department Care Team Description 12/05/2011 Telephone [facility] Bayron Page , Anticoagulation Anticoagulation Clin ic [facility] [address] [place], [place] [phone] [facility] [phone] [place] [address] 812 [place] [address] (Wo rk) Social History Tobacco Use Types Packs/Day Years Used Date Smoking Tobacco: Never Comments: none at home Alcohol Use Standard Drinks/Week Comments Not Asked 0 (1 standard drink = 0.6 oz pure alcoho l) Sex Assigned at Date Recorded Male 03/09/2019 1:21 PM CDT documented as of this encounter Miscellaneous Notes Telephone Encounter - Bayron Page [facility] - 12/05/2011 1:14 PM CDT Current Warfarin [...] Cordell Juarez MD [address] [place] [address] (Arleen valdes) 07/27/2022 Office Visit Cardiology Cordell Juarez MD [address] [place], [place] [address] (Arleen valdes) documented as of this encounter Visit Diagnoses Not on filedocumented in this encounter
--- OUTSIDE RECORDS SUMMARY | 2022-04-10 10:31 | XMS_ITS | Encounter Summary ---
:2000 Author Organization [place] Address [address] [place] [address]. [place] [address] Care Team Providers Name Role Phone Unavailable Primary Care Provider Unavailable Encounter Details Date Type Department Care Team Description 05/13/2012 Orders Only [facility] Cordell Juarez HYPO PLASTIC LEFT Pediatric Specialty HEART SYND (Primary Clinic [address] Dx) [address] [facility] [place] [phone] Social History Tobacco Use Types Packs/Day Years [...] Ancillary Procedure Cardiology Cordell Juarez MD [address] [place] [address] [address] [place] [address] (Wo rk) 07/27/2022 Office Visit Cardiology Cordell Juarez MD [address] [place] [address] [facility] [address] [place] [address] (Wo rk) documented as of this encounter Procedures Procedure Name Priority Date/Time Associated Diagnosis Comme nts ANTITHROMBIN III Routine 05/13/2012 3:55 PM HYPOPLASTIC LEFT R esults for this [facility] HEART SYND procedure are i n the results section. documented in this encounter Results Antithrombin III (05/13/2012 3:55 PM [facility]) P athologist Signature Antithrombin MISYS Iii,Activity Anti-Thrombin 116 78 - 131 % MISYS III, Antigenic Specimen (Source) Anatomical Collection Method Collection Time Re ceived Time Location / / Volume Laterality Blood specimen 05/13/2012 3:55 PM (specimen) [facility] Narrative This result has an attachment that is no t available. Cordell Juarez MD LAB - BLOOD ORDERABLES Performing Organization Address City/State/ZIP Code Phon e Number MISYS documented in this encounter Visit Diagnoses Diagnosis 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
--- OUTSIDE RECORDS SUMMARY | 2022-04-10 10:31 | XMS_ITS | Encounter Summary ---
:2000 Author Organization [place] Address [address] [place] [address]. [place] [address] Care Team Providers Name Role Phone Unavailable Primary Care Provider Unavailable Encounter Details Date Type Department Care Team Description 04/24/[address] [facility] Cordell Juarez HYPO PLASTIC LEFT Pediatric Specialty HEART SYND (Primary Clinic [address] Dx) [address] [facility] [place] [phone] Social History Tobacco Use Types Packs/Day Years [...] Ancillary Procedure Cardiology Cordell Juarez MD [address] [place] [address] [address] [place] [address] (Wo rk) 07/27/2022 Office Visit Cardiology Cordell Juarez MD [address] [place] [address] [address] [place] [address] (Wo rk) documented as of this encounter [...]
--- OUTSIDE RECORDS SUMMARY | 2022-04-10 10:31 | XMS_ITS | Encounter Summary ---
:2000 Author Organization [place] Address Critical access hospital0 [facility] [place] [address] Care Team Providers Name Role Phone Unavailable Primary Care Provider Unavailable Encounter Details Date Type Department Care Team Description 04/24/2012 Orders Only [facility] Rajan Watkins Pediatric Specialty MD Prince ENCOUNTER--DISREGARD [facility] [place] [address] (Primary Dx) [address] [place] [phone] Social History Tobacco Use Types Packs/Day Years [...] Ancillary Procedure Cardiology Cordell Juarez MD [address] [place] [address] [address] [place] [address] (Wo rk) 07/27/2022 Office Visit Cardiology Cordell Juarez MD [address] [place] [address] [address] [place] [address] (Wo rk) documented as of this encounter Visit Diagnoses Diagnosis ERRONEOUS ENCOUNTER--DISREGARD - Primary documented in this encounter
--- OUTSIDE RECORDS SUMMARY | 2022-04-10 10:31 | XMS_ITS | Encounter Summary ---
:2000 Author Organization [place] Address [address] [place] [address] Care Team Providers Name Role Phone Unavailable Primary Care Provider Unavailable Reason for Visit Reason Onset Date Comments Anticoagulation 09/06/2011 Encounter Details Date Type Department Care Team Description 09/06/2011 Telephone [facility] Bayron Page , Anticoagulation Anticoagulation Clin ic [facility] [address] [place], [place] [phone] [facility] [phone] [place] [address] 812 [place] [address] (Wo rk) Social History Tobacco Use Types Packs/Day Years Used Date Smoking Tobacco: Never Comments: none at home Alcohol Use Standard Drinks/Week Comments Not Asked 0 (1 standard drink = 0.6 oz pure alcoho l) Sex Assigned at Date Recorded Male 03/09/2019 1:21 PM CDT documented as of this encounter Miscellaneous Notes Telephone Encounter - Bayron Page [facility] - 09/06/2011 1:30 PM CDT Jude is being inactivated from the [facility], Anticoagulation Monitoring Service. Letters have been [...] Ancillary Procedure Cardiology Cordell Juarez MD [address] [facility] [address] [place], [place] [address] (Wo rk) 07/27/2022 Office Visit Cardiology Cordell Juarez MD [address] [facility] [address] [place], [place] [address] (Wo rk) documented as of this encounter Visit Diagnoses Not on filedocumented in this encounter
--- OUTSIDE RECORDS SUMMARY | 2022-04-10 10:31 | XMS_ITS | Encounter Summary ---
:2000 Author Organization [place] Address [address] [place] [address]. [place] [address] Care Team Providers Name Role Phone Unavailable Primary Care Provider Unavailable Reason for Visit Reason Onset Date Comments Refill Request 05/18/2011 Encounter Details Date Type Department Care Team Description 05/18/2011 Refill [facility] Pediatric Cordell Juarez MD Refill Request Specialty Clinic [place] [id number] [address] [facility] [place] [address] [place] [address] [phone] Social History Tobacco Use Types Packs/Day Years [...] 07/27/2022 Ancillary Procedure Cardiology Cordell Juarez MD [address] [place], [place] [address] [place] [address] (Wo rk) 07/27/2022 Office Visit Cardiology Larry, Cordell skelton MD [address] [place] [address] (Wo rk) documented as of this encounter Visit Diagnoses Not on filedocumented in this encounter
--- OUTSIDE RECORDS SUMMARY | 2022-04-10 10:31 | XMS_ITS | Encounter Summary ---
:2000 Author Organization [place] Address [address] [place] [address]. [place] [address] Care Team Providers Name Role Phone Unavailable Primary Care Provider Unavailable Encounter Details Date Type Department Care Team Description 05/16/2012 Abstract [facility] Cordell Juarez MD HYPOPLASTIC LEFT HEART Pediatric Specialty [address] [place] [address] [place] (Primary Dx) Clinic [place] [address] [address] [place] [address] [place] [address] [place] [address] Social History Tobacco Use Types [...] 07/27/2022 Ancillary Procedure Cardiology Cordell Juarez MD [address] [place] [address] (Wo rk) 07/27/2022 Office Visit Cardiology Cordell Juarez MD [address] [place] [address] [address] [place] [address] (Wo rk) documented as of this encounter [...]
--- OUTSIDE RECORDS SUMMARY | 2022-04-10 10:31 | XMS_ITS | Encounter Summary ---
:2000 Author Organization [place] Address [address] [place] [address]. [place] [address] Care Team Providers Name Role Phone Unavailable Primary Care Provider Unavailable Encounter Details Date Type Department Care Team Description 02/25/2012 Orders Only [facility] Cordell Juarez Sing le ventricle Pediatric Specialty (Primary Dx) Clinic [address] 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
--- OUTSIDE RECORDS SUMMARY | 2022-04-10 10:31 | XMS_ITS | Encounter Summary ---
:2000 Author Organization [place] Address [address] [place] [address]. [place] [address] Care Team Providers Name Role Phone Unavailable Primary Care Provider Unavailable Encounter Details Date Type Department Care Team Description 05/16/2012 Abstract [facility] Cordell Juarez MD HYPOPLASTIC LEFT HEART Pediatric Specialty [address] [place] [address] [place] (Primary Dx) Clinic [place] [address] [address] [place] [address] [place] [address] [place] [address] Social History Tobacco Use Types [...] Ancillary Procedure Cardiology Cordell Juarez MD [address] [place] [address] (Wo rk) 07/27/2022 Office Visit Cardiology Cordell Juarez MD [address] [place] [address] [address] [place] [address] (Wo rk) documented as of this encounter [...] BLOOD ORDERABLES Performing Organization Address [facility] Phon e Number MISYS Comprehensive metabolic panel [...] BLOOD ORDERABLES Performing Organization Address [facility] Phon e Number MISYS TSH (05/13/2012) P athologist Signature TSH 2.440 mcU/mL MISYS Free T4 Index 1.42 MISYS (T7) Specimen (Source) Anatomical Location Collection Method / Collectio n Time Received Time / Laterality Volume Blood specimen (specimen) Narrative This result has an attachment that is no t available. 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
--- OUTSIDE RECORDS SUMMARY | 2022-04-10 10:31 | XMS_ITS | Encounter Summary ---
:2000 Author Organization [place] Address [address] [place] [address] Care Team Providers Name Role Phone Unavailable Primary Care Provider Unavailable Reason for Visit Reason Onset Date Comments Anticoagulation 03/30/2011 Encounter Details Date Type Department Care Team Description 03/30/2011 Telephone [facility] Bayron Page , Anticoagulation Anticoagulation Clin ic [facility] [address] [place], [place] [phone] [facility] [phone] [address] [facility] [address] [place] [address] (Wo rk) Social History Tobacco [...] 04/04/2011 Results Given To: Spoke with Jaimie li Results Given By: Surendra Dalal PharmD IV/Aamir Page [facility] documented in this encounter Plan of Treatment Upcoming Encounters Date Type Specialty Care Team Description 07/27/2022 Ancillary Procedure Cardiology Cord[facility]arez MD [address] [facility] [address] [address] [place], [place] [address] (Arleen rk) 07/27/2022 Office Visit Cardiology Cordell Juarez MD [address] [facility] [address] [place], [place] [address] (Arleen valdes) documented as of this encounter Visit Diagnoses Not on filedocumented in this encounter
--- OUTSIDE RECORDS SUMMARY | 2022-04-10 10:31 | XMS_ITS | Encounter Summary ---
:2000 Author Organization [place] Address [address] [place] [address] Care Team Providers Name Role Phone Unavailable Primary Care Provider Unavailable Encounter Details Date Type Department Care Team Description 05/30/2011 Orders Only [facility] Magda Del Real Hypop lastic left heart syndrome; Anticoagulation Clin ic L, RN Encounter for long-term (cur rent) use of anticoagulants [address] [place] [address] Social History Tobacco Use Types [...] Ancillary Procedure Cardiology Cordell Juarez MD [address] [place] [address] (Wo rk) 07/27/2022 Office Visit Cardiology Cordell Juarez MD [address] [phone] (Arleen valdes) documented as of this encounter Visit Diagnoses Diagnosis Hypoplastic left heart syndrome residential (current) use of anticoagulant s Long-term (current) use of anticoagulant s documented in this encounter
--- OUTSIDE RECORDS SUMMARY | 2022-04-10 10:31 | XMS_ITS | Encounter Summary ---
:2000 Author Organization [address] [place] [address] Care Team Providers Name Role Phone Unavailable Primary Care Provider Unavailable Reason for Visit Reason Onset Date Comments Refill Request 02/15/2012 Encounter Details Date Type Department Care Team Description 02/15/2012 Refill [facility] Pediatric Cordell Juarez MD Refill Request Specialty Clinic [address] [place] [address] [facility] [address] [phone] Social History Tobacco Use Types Packs/Day Years [...] Meena I called in a Rx to [facility] in [place]. Amoxicillin 500mg capsules with taking 3 one hour prior to dental cleaning, dispensing 12 with 2 refills. I then called ilia let her know that it was called in and she could order picker/assembler. documented in this encounter Plan of Treatment Upcoming Encounters Date Type Specialty Care Team Description 07/27/2022 Ancillary Procedure Cardiology Cordell Juarez MD 24[address] [facility] [place], [place] [address]67[address] (Wo rk) 07/27/2022 Office Visit Cardiology Cordell Juarez MD [address] [place], [place] [address] (Wo rk) documented as of this encounter Visit Diagnoses Not on filedocumented in this encounter
--- OUTSIDE RECORDS SUMMARY | 2022-04-10 10:31 | XMS_ITS | Encounter Summary ---
:2000 Author Organization [place] Address [address] [place] [address] Care Team Providers Name Role Phone Unavailable Primary Care Provider Unavailable Reason for Visit Reason Onset Date Comments Anticoagulation 05/31/2011 Encounter Details Date Type Department Care Team Description 05/31/2011 Telephone [facility] Magda Del Real, RN Anticoagulation Anticoagulation Clin [address] [place] [phone] Social History Tobacco Use Types Packs/Day [...] she had Luke in the ER in [place] last PM. The hematoma on his leg [...] Mom thinks it may be crohns again ITE TECHNICIAN documented in this encounter Plan of Treatment Upcoming Encounters Date Type Specialty Care Team Description 07/27/2022 Ancillary Procedure Cardiology Cordell Juarez MD [address] [place] [address] (Wo rk) 07/27/2022 Office Visit Cardiology Cordell Juarez MD [address] [place] [address] (Wo rk) documented as of this encounter Visit Diagnoses Not on filedocumented in this encounter
--- OUTSIDE RECORDS SUMMARY | 2022-04-10 10:31 | XMS_ITS | Encounter Summary ---
:2000 Author Organization [place] Address [address] [place] [address]. [place] [address] Care Team Providers Name Role Phone Unavailable [...] Ancillary Procedure Cardiology Cordell Juarez MD [address] [place] [address] (Wo rk) 07/27/2022 Office Visit Cardiology Cordell Juarez MD [facility] [place] [address] [place], [place] [address] (Wo rk) documented as of this encounter Procedures Procedure Name Priority Date/Time Associated Diagnosis Comme nts EKG 12-LEAD, Routine 04/30/2012 11:06 AM Results for this TRACING ONLY HEALTH/SAFETY JOB TITLES procedure are i n the results section. documented in this encounter Results EKG 12-lead, tracing only (04/30/2012 11:06 AM HEALTH/SAFETY JOB TITLES) Component Value Ref Range Test Analysis Performed Pathologis t Method Time At Signature Ventricular Rate 80 BPM RADIOLOGY RESULTS Atrial Rate 80 BPM RADIOLOGY RESULTS GA Interval 136 ms RADIOLOGY RESULTS QRS Duration 82 ms RADIOLOGY RESULTS QT 366 ms RADIOLOGY RESULTS QTc 422 ms RADIOLOGY RESULTS P [place] 51 degrees RADIOLOGY RESULTS R AXIS -86 degrees RADIOLOGY RESULTS T [place] 62 degrees RADIOLOGY RESULTS Interpretation * RADIOLOGY ECG Pediatric ECG RESULTS Analysis * Interpretation Sinus rhythm RADIOLOGY ECG RESULTS Interpretation Left axis RADIOLOGY ECG deviation RESULTS Interpretation Right RADIOLOGY ECG ventricular RESULTS hypertrophy with strain pattern Specimen (Source) Anatomical Collection Method Collection Time Re ceived Time Location / / Volume Laterality 04/30/2012 11:06 AM HEALTH/SAFETY JOB TITLES Doctor Unknown MD ECG ORDERABLES Performing Organization Address City/State/ZIP Code Phon e Number RADIOLOGY RESULTS documented in this encounter Visit Diagnoses Not on filedocumented in this encounter
--- OUTSIDE RECORDS SUMMARY | 2022-04-10 10:31 | XMS_ITS | Encounter Summary ---
:2000 Author Organization [place] Address [address] [place] [address]. [place] [address] Care Team Providers Name Role Phone Unavailable Primary Care Provider Unavailable Encounter Details Date Type Department Care Team Description 11/27/2012 Orders Only [facility] Cordell Juarez HYPO PLASTIC LEFT Pediatric Specialty HEART SYND (Primary Clinic [address] Dx) [address] [facility] [place] [phone] Social History Tobacco Use Types Packs/Day Years [...] Ancillary Procedure Cardiology Cordell Juarez MD [address] [place] [address] [address] [place] [address] (Wo rk) 07/27/2022 Office Visit Cardiology Cordell Juarez MD [address] [place] [address] [address] [place] [address] (Wo rk) documented as of this encounter Visit Diagnoses Diagnosis 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
--- OUTSIDE RECORDS SUMMARY | 2022-04-10 10:31 | XMS_ITS | Encounter Summary ---
:2000 Author Organization [place] Address [address] [place] [address]. [place] [address] Care Team Providers Name Role Phone Unavailable Primary Care Provider Unavailable Encounter Details Date Type Department Care Team Description 08/22/2012 Orders Only [facility] Cordell Juarez Croh n's colitis (H) Pediatric Specialty (Primary Dx) Clinic [address] [place] [address] [address] [place] [phone] [phone] Social History Tobacco Use Types Packs/Day Years [...] Ancillary Procedure Cardiology Cordell Juarez MD [address] [place], [place] [address] [place] [address] (Wo rk) 07/27/2022 Office Visit Cardiology Cordell Juarez MD [address] [facility] [address] [place] [address] (Wo rk) documented as of this encounter Visit Diagnoses Diagnosis Crohn's colitis (H) - Primary Regional enteritis of large intestine documented in this encounter
--- OUTSIDE RECORDS SUMMARY | 2022-04-10 10:31 | XMS_ITS | Encounter Summary ---
:2000 Author Organization [address] [place] [address] Care Team Providers Name Role Phone Unavailable Primary Care Provider Unavailable Encounter Details Date Type Department Care Team Description 05/28/2012 Telephone [facility] Pediatric Larry Cordell MD Specialty Clinic [address] [facility] [place] [address] [place] [address] [phone] Social History Tobacco Use Types Packs/Day Years Used Date Smoking Tobacco: Never Comments: none at home Alcohol Use Standard Drinks/Week Comments Not Asked 0 (1 standard drink = 0.6 oz pure alcoho l) Sex Assigned at Date Recorded Male 03/09/2019 1:21 PM CDT documented as of this encounter Miscellaneous Notes Telephone Encounter - Delicia Izaguirre RN - 05/28/2012 3:58 PM ASSOCIATE PROFESSOR OF ENGLISH Reji Etienne,, so to recap- INR was [...] sooner if he is bruising or bleeding. 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
--- OUTSIDE RECORDS SUMMARY | 2022-04-10 10:31 | XMS_ITS | Encounter Summary ---
:2000 Author Organization [place] Address [address] [place] [address]. [place] [address] Care Team Providers Name Role Phone Unavailable Primary Care Provider Unavailable Encounter Details Date Type Department Care Team Description 04/02/2011 Orders Only [facility] Cordell Juarez HYPO PLASTIC LEFT Pediatric Specialty HEART SYND (Primary Clinic [address] Dx) [address] [facility] [place] [phone] Social History Tobacco Use Types Packs/Day Years [...] Ancillary Procedure Cardiology Cordell Juarez MD [address] [place] [address] [address] [place] [address] (Wo rk) 07/27/2022 Office Visit Cardiology Cordell Juarez MD [address] [place] [address] [facility] [address] [place] [address] (Wo rk) documented as of this encounter Visit Diagnoses Diagnosis 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
--- OUTSIDE RECORDS SUMMARY | 2022-04-10 10:31 | XMS_ITS | Encounter Summary ---
:2000 Author Organization [place] Address [address] [place] [address] Care Team Providers Name Role Phone Unavailable Primary Care Provider Unavailable Reason for Visit Reason Onset Date Comments Anticoagulation 06/21/2011 Encounter Details Date Type Department Care Team Description 06/21/2011 Telephone [facility] Bayron Page , Anticoagulation Anticoagulation Clin ic [facility] [address] [place], [place] [phone] [facility] [phone] [place] [address] 812 [place] [address] (Wo rk) Social History Tobacco Use Types Packs/Day Years Used Date Smoking Tobacco: Never Comments: none at home Alcohol Use Standard Drinks/Week Comments Not Asked 0 (1 standard drink = 0.6 oz pure alcoho l) Sex Assigned at Date Recorded Male 03/09/2019 1:21 PM CDT documented as of this encounter Miscellaneous Notes Telephone Encounter - Bayron Page [facility] - 06/21/2011 10:27 AM CST Current Warfarin [...] controlled as they should. Results Given By: Aamir Page RP R BATTER MIXER documented in this encounter Plan of Treatment Upcoming Encounters Date Type Specialty Care Team Description 07/27/2022 Ancillary Procedure Cardiology Cordell Juarez MD 2450 [facility] [address] [place], [place] [address] (Arleen valdes) 07/27/2022 Office Visit Cardiology Cordell Juarez MD [address] [place], [place] [address] (Arleen valdes) documented as of this encounter Visit Diagnoses Not on filedocumented in this encounter
--- OUTSIDE RECORDS SUMMARY | 2022-04-10 10:31 | XMS_ITS | Encounter Summary ---
:2000 Author Organization [place] Address [facility] [place] [address] Care Team Providers Name Role Phone Unavailable Primary Care Provider Unavailable Encounter Details Date Type Department Care Team Description 02/29/2012 Orders Only [facility] Cordell Juarez Hypo plastic left Pediatric Specialty heart (Primary Dx) Clinic [address] [place] [address] [address] [place] [phone] Social History Tobacco Use Types Packs/Day Years [...] Ancillary Procedure Cardiology Cordell Juarez MD [address] [place], [place] [id number] [place] [address] (Wo rk) 07/27/2022 Office Visit Cardiology Cordell Juarez MD [address] [place], [place] [id number] [place] [address] (Wo rk) documented as of this encounter Visit Diagnoses Diagnosis Hypoplastic left heart - Primary Hypoplastic left heart syndrome documented in this encounter
--- OUTSIDE RECORDS SUMMARY | 2022-04-10 10:31 | XMS_ITS | Encounter Summary ---
:2000 Author Organization [place] Address [address] [facility] [place] [address] Care Team Providers Name Role Phone Unavailable Primary Care Provider Unavailable Reason for Referral Specialty Diagnoses / Procedures Referred By Contact Refer red To Contact Cordell Juarez M D [address] [facility] [address] [place], [place] [address] Referral ID Status Reason Start Date Expiration Date Visits Requ ested Visits Authorized Scheduling Instructions ANTICOAGULATION CLINIC COLLABORATIVE PRA CTICE AGREEMENT The following represents a collaborative practice agreement among the physicians of the Clinic and staff of the Anticoagulat ion Clinic Service ([facility]) Physicians shall: 1. Refer patients requiring anticoagulat ion to a specialty service staffed by personnel of Pharmacy Services and super vised by Clinic physicians. 2. Respond to questions and referrals fr pharmacy staff regarding delinquent or difficult patients. 3. Inform the [facility] staff when a new patie nt is [...] Department Care Team Description 11/26/2011 Orders Only [facility] Cordell Juarez Sing le ventricle, Pediatric Specialty heterotaxia syndrome Clinic [address] (Primary Dx) [address] [facility] [place] [phone] [phone] Social History Tobacco Use Types Packs/Day Years [...] Ancillary Procedure Cardiology Cordell Juarez MD [address] [place], [place] [phone] [place] [address] (Wo rk) 07/27/2022 Office Visit Cardiology Cordell Juarez MD [address] [facility] [place] [address] (Wo rk) Scheduled Referrals Name Type Priority Associated Diagnoses Order S [facility] CLINIC REFERRAL Referral Routine Single ventricle, Ord ered: 11/26/2011 heterotaxia syndrome documented as of this encounter Procedures Procedure Name Priority Date/Time Associated Diagnosis Comme nts [facility] Routine 11/26/2011 11:29 AM Single ventricl e, MANAGEMENT CDT heterotaxia syndrome documented in this encounter Visit Diagnoses Diagnosis Single ventricle, 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
--- OUTSIDE RECORDS SUMMARY | 2022-04-10 10:31 | XMS_ITS | Encounter Summary ---
:2000 Author Organization [place] Address [address] [place] [address]. [place] [address] Care Team Providers Name Role Phone Unavailable Primary Care Provider Unavailable Reason for Visit Reason Onset Date Comments Anticoagulation 07/05/2011 Encounter Details Date Type Department Care Team Description 07/05/2011 Telephone [facility] Bayron Page , Anticoagulation Anticoagulation Clin ic [facility] [address] [place], [place] [phone] [facility] [phone] [place] [address] 812 [place] [address] (Wo rk) Social History Tobacco Use Types Packs/Day Years Used Date Smoking Tobacco: Never Comments: none at home Alcohol Use Standard Drinks/Week Comments Not Asked 0 (1 standard drink = 0.6 oz pure alcoho l) Sex Assigned at Date Recorded Male 03/09/2019 1:21 PM CDT documented as of this encounter Miscellaneous Notes Telephone Encounter - Bayron Page [facility] - 07/05/2011 11:07 AM CST Current Warfarin [...] Mom Results Given By: Aamir Page RPH [employer]ON[employer] COMPONENTS ASSEMBLER documented in this encounter Plan of Treatment Upcoming Encounters Date Type Specialty Care Team Description 07/27/2022 Ancillary Procedure Cardiology Cordell Juarez MD [address] [place], [place] [address] (Wo rk) 07/27/2022 Office Visit Cardiology Cordell Juarez MD [address] [place], [place] [address] (Wo rk) documented as of this encounter Visit Diagnoses Not on filedocumented in this encounter
--- OUTSIDE RECORDS SUMMARY | 2022-04-10 10:31 | XMS_ITS | Encounter Summary ---
:2000 Author Organization [place] Address [address] [place] [address] Care Team Providers Name Role Phone Unavailable Primary Care Provider Unavailable Reason for Visit Reason Onset Date Comments Anticoagulation 05/23/2011 Encounter Details Date Type Department Care Team Description 05/23/2011 Telephone [facility] Madhavi Del Real RN Anticoagulation Anticoagulation Clin [address] [phone] Social History Tobacco Use Types Packs/Day [...] MWThSaSu Current INR Value 1.30 done at [facility] Desired Lab Goal Range 2.00 - 2.50 [...] Results Given By: MADHAVI DEL REAL RN DISABILITIES TEACHER documented in this encounter Plan of Treatment Upcoming Encounters Date Type Specialty Care Team Description 07/27/2022 Ancillary Procedure Cardiology Cordell Juarez MD [address] [facility] [address] [place], [place] [phone] (Arleen valdes) 07/27/2022 Office Visit Cardiology Cordell Juarez MD [address] [facility] [address] [place], [place] [address] (Arleen valdes) documented as of this encounter Visit Diagnoses Not on filedocumented in this encounter
--- OUTSIDE RECORDS SUMMARY | 2022-04-10 10:31 | XMS_ITS | Encounter Summary ---
:2000 Author Organization [place] Address [address] [place] [address]. [place] [address] Care Team Providers Name Role Phone Unavailable Primary Care Provider Unavailable Encounter Details Date Type Department Care Team Description 05/15/2012 Orders Only [facility] Cordell Juarez, S/P Fontan procedure Pediatric Specialty (Primary Dx) Clinic [address] [place] [phone] [address] [place] [phone] Social History Tobacco Use Types Packs/Day Years [...] Ancillary Procedure Cardiology Cordell Juarez MD [address] [place], [place] [phone] [place] [address] (Wo rk) 07/27/2022 Office Visit Cardiology Cordell Juarez MD [address] [place] [address] [address] [place] [address] (Wo rk) documented as of this encounter Visit Diagnoses Diagnosis S/P Fontan procedure - Primary Other postprocedural status documented in this encounter
--- OUTSIDE RECORDS SUMMARY | 2022-04-10 10:31 | XMS_ITS | Encounter Summary ---
:2000 Author Organization [place] Address [address] [place] [address] Care Team Providers Name Role Phone Unavailable Primary Care Provider Unavailable Reason for Visit Reason Onset Date Comments Anticoagulation 05/07/2011 Encounter Details Date Type Department Care Team Description 05/07/2011 Telephone [facility] Bayron Page , Anticoagulation Anticoagulation Clin ic [facility] [address] [place], [place] [phone] [facility] [phone] [place] [address] 812 [place] [address] (Wo rk) Social History Tobacco [...] Given By: Funmi Yates PharmD IV/Aamir Page [facility] [place] BEAUTY SPECIALIST documented in this encounter Plan of Treatment Upcoming Encounters Date Type Specialty Care Team Description 07/27/2022 Ancillary Procedure Cardiology Cordell Juarez MD [address] [place], [place] [address] (Wo lucio) 07/27/2022 Office Visit Cardiology Cordell Juarez MD [address] [place], [place] [phone] (Arleen valdes) documented as of this encounter Visit Diagnoses Not on filedocumented in this encounter
--- OUTSIDE RECORDS SUMMARY | 2022-04-10 10:32 | XMS_ITS | Encounter Summary ---
:2000 Author Organization [place] Address [facility] [place] [address] Care Team Providers Name Role Phone Unavailable Primary Care Provider Unavailable Encounter Details Date Type Department Care Team Description 12/06/2010 Hospital Laboratory [facility] Cordell Juarez, [facility] Results [facility] [place] [address]34 (Wo rk) Social History Tobacco Use Types [...] Ancillary Procedure Cardiology Cordell Juarez MD [address] [place] [phone] (Wo rk) 07/27/2022 Office Visit Cardiology Cordell Juarez MD [address] [place] [phone] (Wo rk) documented as of this encounter [...] Signature INR 1.47 (H) 0.86 - 1.14 [facility] Specimen Anatomical Collection Method Collection Time Receive d Time (Source) Location / / Volume Laterality 12/06/2010 12:03 12/06/2010 PM CDT 12:04 PM CDT Cordell Juarez MD LAB - BLOOD ORDERABLES Performing Organization Address City/[facility]/ZIP Code Phon e Number M [facility] [address] [address] [facility] CBC with platelets (12/06/2010 12:03 PM CDT) athologist Signature WBC 6.2 4.0 - 11.0 [place] 10e9/L [facility] RBC Count 5.25 3.7 - 5.3 [place] 10e12/L [facility] Hemoglobin 14.4 11.7 - [facility] 15.7 g/dL [facility] Hematocrit 43.1 35.0 - [facility] 47.0 % [facility] MCV 82 77 - 100 [place] [facility] MCH 27.4 26.5 - [facility] 33.0 pg [facility] MCHC 33.4 31.5 - [facility] 36.5 g/dL [facility] RDW 13.6 10.0 - [facility] 15.0 % [facility] Platelet Count 282 150 - 450 [place] 10e9L [facility] Specimen Anatomical Collection Method Collection Time Receive d Time (Source) Location / / Volume Laterality 12/06/2010 12:03 12/06/2010 PM CDT 12:04 PM CDT Cordell Juarez MD LAB - BLOOD ORDERABLES Performing Organization Address City/[facility]/ZIP Code Phon e Number M [facility] [address] [place], [place] [address] [facility] documented in this encounter Visit Diagnoses Not on filedocumented in this encounter
--- OUTSIDE RECORDS SUMMARY | 2022-04-10 10:32 | XMS_ITS | Encounter Summary ---
:2000 Author Organization [place] Address [address] [place] [address] Care Team Providers Name Role Phone Unavailable Primary Care Provider Unavailable Reason for Visit Reason Onset Date Comments Anticoagulation 03/27/2011 Encounter Details Date Type Department Care Team Description 03/27/2011 Telephone [facility] Vanessa Prado Anticoagulation Anticoagulation Clin A, [facility] [address] [place], [place] [phone] Social History Tobacco Use Types Packs/Day [...] Juarez MD 2450 [facility] [address] [place], [place] [address] (Wo rk) 07/27/2022 Office Visit Cardiology Cordell Juarez MD [address] [facility] [address] [place], [place] [address] (Wo rk) documented as of this encounter Visit Diagnoses Not on filedocumented in this encounter
--- OUTSIDE RECORDS SUMMARY | 2022-04-10 10:32 | XMS_ITS | Encounter Summary ---
:2000 Author Organization [place] Address [facility] [place] [address] Care Team Providers Name Role Phone Unavailable Primary Care Provider Unavailable Reason for Visit Reason Onset Date Comments Refill Request 08/29/2010 focalin Encounter Details Date Type Department Care Team Description 08/28/2010 MyC Refill [facility] Ignacio Solo Refi ll Request Clinic Meir DUPREE (focalin) [address] [place] [address] [phone] (Wo rk) Social History Tobacco Use Types [...] - 08/29/2010 10:03 AM CDT Message from [employer]: Jude Bills would like a refill of the following medications: dexmethylphenidate (FOCALIN XR) 10 MG 24 hr capsule [Ignacio Gauravjuan Roseannetyrell] Preferred pharmacy: [facility] Comment: This message is being sent by Jaimie Bills on behalf of Jude Fisher it possible to get more than 30 day supply at a time for this medication? I am rarely up in [place]. I have to picker / packer the paper script from the clinic and walk it across the [place] to the pharmacy to wait for it to be filled each month. Please let me know. Thank you,Jaimie (mom) [phone] documented in this encounter Plan of Treatment Upcoming Encounters Date Type Specialty Care Team Description 07/27/2022 Ancillary Procedure Cardiology Cordell Juarez MD [address] [place] [address] (Wo rk) 07/27/2022 Office Visit Cardiology Cordell Juarez MD [address] [place] [address] (Wo rk) documented as of this encounter Visit Diagnoses Diagnosis Attention deficit disorder with hyperact ivity(314.01) - Primary Attention deficit disorder with hyperact ivity documented in this encounter
--- OUTSIDE RECORDS SUMMARY | 2022-04-10 10:32 | XMS_ITS | Encounter Summary ---
:2000 Author Organization [place] Address [address] [place] [address] Care Team Providers Name Role Phone Unavailable [...] 07/27/2022 Ancillary Procedure Cardiology Cordell Juarez MD [address] [place] [address] (Wo rk) 07/27/2022 Office Visit Cardiology Cordell Juarez MD [address] [place] [phone] (Wo rk) documented as of this encounter Procedures Procedure Name Priority Date/Time Associated Diagnosis Comme nts EKG 12 LEAD Routine 07/26/2010 1:26 PM Results f or this LUMBER CHECKER procedure are i n the results section . documented in this encounter Results EKG 12 LEAD (07/26/2010 1:26 PM LUMBER CHECKER) Component Value Ref Range Test Analysis Performed Pathologis t Method Time At Signature Ventricular Rate 83 BPM RADIOLOGY RESULTS Atrial Rate 83 BPM RADIOLOGY RESULTS MA Interval 138 ms RADIOLOGY RESULTS QRS Duration 76 ms RADIOLOGY RESULTS QT 346 ms RADIOLOGY RESULTS QTc 406 ms RADIOLOGY RESULTS P [place] 65 degrees RADIOLOGY RESULTS R AXIS -81 degrees RADIOLOGY RESULTS T [place] 72 degrees RADIOLOGY RESULTS Interpretation * Pediatric ECG Analysis * RADIOLOGY ECG Sinus rhythm RESULTS Left axis deviation Right ventricular hypertrophy Specimen Anatomical Collection Method Collection Time Receive d Time (Source) Location / / Volume Laterality 07/26/2010 1:26 PM 1 3:30 LUMBER CHECKER PM LUMBER CHECKER Transcripton Interface ECG ORDERABLES Performing Organization Address City/State/ZIP Code Phon e Number RADIOLOGY RESULTS documented in this encounter Visit Diagnoses Not on filedocumented in this encounter
--- OUTSIDE RECORDS SUMMARY | 2022-04-10 10:32 | XMS_ITS | Encounter Summary ---
:2000 Author Organization [place] Address [facility] [place] [address] Care Team Providers Name Role Phone Unavailable Primary Care Provider Unavailable Encounter Details Date Type Department Care Team Description 12/06/2010 Office Visit-[facility] Cordell Juarez MD [address] [place], [place] [address] (Wo rk) Social History Tobacco Use Types Packs/Day Years Used Date Smoking Tobacco: Never Comments: none at home Alcohol Use Standard Drinks/Week Comments Not Asked 0 (1 standard drink = 0.6 oz pure alcoho l) Sex Assigned at Date Recorded Male 03/09/2019 1:21 PM CDT documented as of this encounter Progress Notes Cordell Juarez - 12/06/2010 11:00 AM CDT [place]: Cordell Juarze Status: Final - Signature Encounter: 2010-12-06 11:00:00.000 Type: Alia Corona Letter documented in this encounter Plan of Treatment Upcoming Encounters Date Type Specialty Care Team Description 07/27/2022 Ancillary Procedure Cardiology Cordell Juarez MD [address] [place] [address] (Wo rk) 07/27/2022 Office Visit Cardiology LarryCordell blum MD [address] [place] [address] (Wo rk) documented as of this encounter Visit Diagnoses Not on filedocumented in this encounter
--- OUTSIDE RECORDS SUMMARY | 2022-04-10 10:32 | XMS_ITS | Encounter Summary ---
:2000 Author Organization [place] Address [facility] [place] [address] Care Team Providers Name Role Phone Unavailable Primary Care Provider Unavailable Encounter Details Date Type Department Care Team Description 12/06/2010 Results Only [facility] Rudy Juarez MD Hospital Results [address] [place], [place] [address] (Wo rk) Social History Tobacco Use Types [...] 07/27/2022 Ancillary Procedure Cardiology Cordell Juarez MD [address] [place] [phone] (Wo rk) 07/27/2022 Office Visit Cardiology Cordell Juarez MD [address] [place] [phone] (Wo rk) documented as of this encounter [...] 12/07/2010 1:43 PM CDT PEDIATRIC ECHOCARDIOGRAM ?? [facility] ? ?Echocardiogram Lab ? Age: ??1 ? Wt: ? Ht: ? BSA: ?BP: ? Xcelera ? Supervisory It Specialist: ??kb INDICATION: ? A cardiac ultrasound study [...] to right shunt. ?? Artemio Silva MD-Pager [phone] ?? Gayathri Ayala MD-Pager [phone] ?? Jorge Link MD-Pager [phone] or Cordell Juarez MD-Pager [phone] ?? Jayson Bailey MD-Pager [phone] Aga Rucker MD-Pager Cordell Juarez MD CV PEDS ECHO ORDERABLES documented in this encounter Visit Diagnoses Not on filedocumented in this encounter
--- OUTSIDE RECORDS SUMMARY | 2022-04-10 10:32 | XMS_ITS | Encounter Summary ---
:2000 Author Organization [place] Address [facility] [place] [address] Care Team Providers Name Role Phone Unavailable Primary Care Provider Unavailable Encounter Details Date Type Department Care Team Description 08/21/2010 Orders Only [facility] Ed[place], Ignacio Mares, DIAG NOSIS NOT YET Clinic Meir DUPREE DEFINED (Primary Dx) [address] [place] [place] [phone] Social History Tobacco Use Types Packs/Day Years [...] Ancillary Procedure Cardiology Cordell Juarez MD [address] [place] [phone] (Wo rk) 07/27/2022 Office Visit Cardiology Cordell Juarez MD [address] [place] [address] [place] [address] (Wo rk) documented as of this encounter [...]
--- OUTSIDE RECORDS SUMMARY | 2022-04-10 10:32 | XMS_ITS | Encounter Summary ---
:2000 Author Organization [place] Address Count includes the [facility] [place] [address] Care Team Providers Name Role Phone Unavailable Primary Care Provider Unavailable Encounter Details Date Type Department Care Team Description 10/30/2010 Hospital Laboratory [facility] Cordell Juarez, [facility] Results Count includes the [facility] [place] [phone] (Wo rk) Social History Tobacco Use Types [...] Ancillary Procedure Cardiology Cordell Juarez MD [address] [place] [phone] (Wo rk) 07/27/2022 Office Visit Cardiology Cordell Juarez MD [address] [place] [phone] (Wo rk) documented as of this encounter [...] Signature INR 1.19 (H) 0.86 - 1.14 [facility] Specimen Anatomical Collection Method Collection Time Receive d Time (Source) Location / / Volume Laterality 10/30/2010 1:00 PM 1 1:11 CDT PM CDT Cordell Juarez MD LAB - BLOOD ORDERABLES Performing Organization Address City/State/ZIP Code Phon e Number [place] [address] [address] [address] [facility] CBC with platelets differential (10/30/2010 1:00 PM CDT) Patholo gist Method Time Signature WBC 5.0 4.0 - [place] 11.0 [facility] 10e9/L [facility] RBC Count 4.72 3.7 - 5.3 [place] 10e12/L [facility] Hemoglobin 13.3 11.7 - [place] 15.7 g/dL [facility] Hematocrit 38.6 35.0 - [facility] 47.0 % [facility] MCV 82 77 - 100 [place] fl [facility] MCH 28.2 26.5 - [facility] 33.0 pg [facility] MCHC 34.5 31.5 - [place] 36.5 g/dL [facility] RDW 13.7 10.0 - [facility] 15.0 % [facility] Platelet Count 245 150 - 450 [place] 10e9/L [facility] Diff Method Automated [facility] LAB % Neutrophils 49.0 32 - 64 % [facility] % Lymphocytes 38.4 26 - 50 % [facility] % Monocytes 9.4 0 - 12 % [facility] % Eosinophils 1.4 0 - 6 % [facility] % Basophils 1.8 0 - 2 % [facility] Absolute 2.5 1.3 - 7.0 [place] Neutrophil 10e9/L [facility] Absolute 1.9 1.0 - 5.8 [place] Lymphocytes 10e9/L [facility] Absolute 0.5 0.0 - 1.3 [place] Monocytes 10e9/L [facility] Absolute 0.1 0.0 - 0.7 [place] Eosinophils 10e9/L [facility] Absolute 0.1 0.0 - 0.2 [place] Basophils 10e9/L [facility] Reactive Lymphs Present [facility] RBC Morphology Consistent [place] with [facility] Platelet Normal [facility] LAB Specimen Anatomical Collection Method Collection Time Receive d Time (Source) Location / / Volume Laterality 10/30/2010 1:00 PM 1 1:11 CDT PM CDT Cordell Juarez MD LAB - BLOOD ORDERABLES Performing Organization Address City/State/ZIP Code Phon e Number M [facility] [address] [place], [place] [address] HOSPITAL [facility] documented in this encounter Visit Diagnoses Not on filedocumented in this encounter
--- OUTSIDE RECORDS SUMMARY | 2022-04-10 10:32 | XMS_ITS | Encounter Summary ---
:2000 Author Organization [place] Address Counts include 234 beds at the [facility] [place] [address] Care Team Providers Name Role Phone Unavailable Primary Care Provider Unavailable Reason for Visit Reason Comments Well Child 10 year phys. Needs form com pleted for camp. Encounter Details Date Type Department Care Team Description 12/06/[address] [facility] Ignacio Solo Rout ine or child health check (Primary Dx); Clinic [place] ATTN DEFICIT W HYPERACT; [address] Colitis; [place], [place] HYPOPLASTIC LEFT HEART SYND [place], [place] [address] [phone] Social History Tobacco Use Types Packs/Day Years [...] since last physical Language(s) spoken at home: Polish ENVIRONMENTAL RISK ASSESSMENT Is your child around [...] kg/m2 5.89% of growth percentile based on zrwnhjb-rsu-hym. 5.71% of growth percentile based on yrgmuz-rfm-tia. 20.61% of growth percentile based on BMI-for-age. [...] up to date [facility] Referrals/Ongoing Specialty care: Ongoing Specialty care by cardiology and GI Dental visit recommended: Yes RTC: 11 year rx for focalin xr given. Discussed wt and appetite. No other SE. Doing well with current dose. 3 rx given Form completed for [place]. 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
--- OUTSIDE RECORDS SUMMARY | 2022-04-10 10:32 | XMS_ITS | Encounter Summary ---
:2000 Author Organization [place] Address [address] [place] [address]. [place] [address] Care Team Providers Name Role Phone Unavailable [...] Ancillary Procedure Cardiology Cordell Juarez MD [address] [place], [place] [address] [place] [address] (Wo rk) 07/27/2022 Office Visit Cardiology Cordell Juarez MD [facility]0 [address] [address] [place], [place] [address] (Wo rk) documented as of this encounter [...] RESULTS Atrial Rate 71 BPM RADIOLOGY RESULTS [place] Interval 132 ms RADIOLOGY RESULTS QRS Duration 82 ms RADIOLOGY RESULTS QT 394 ms RADIOLOGY RESULTS QTc 428 ms RADIOLOGY RESULTS P [place] -8 degrees RADIOLOGY RESULTS R AXIS -90 degrees RADIOLOGY RESULTS T [place] 74 degrees RADIOLOGY RESULTS Interpretation * RADIOLOGY [...]
--- OUTSIDE RECORDS SUMMARY | 2022-04-10 10:32 | XMS_ITS | Encounter Summary ---
:2000 Author Organization [place] Address [address] [place] [address] Care Team Providers Name Role Phone Unavailable Primary Care Provider Unavailable Reason for Visit Reason Comments Anticoagulation Encounter Details Date Type Department Care Team Description 03/23/2011 Allied Health/Nurse [facility] Anticoagulation Visit [address] [address] Social History Tobacco Use Types [...] Ancillary Procedure Cardiology Cordell Juarez MD [address] [place] [address] (Wo rk) 07/27/2022 Office Visit Cardiology Cordell Juarez MD [address] [facility] [address] [place], [place] [address] (Wo rk) documented as of this encounter [...] documented in this encounter Visit Diagnoses Diagnosis snf (current) use of anticoagulant s - Primary Long-term (current) use of anticoagulant s documented in this encounter
--- OUTSIDE RECORDS SUMMARY | 2022-04-10 10:32 | XMS_ITS | Encounter Summary ---
:2000 Author Organization [place] Address [address] [place] [address] Care Team Providers Name Role Phone Unavailable [...] Unknown, Provider - 12/06/2010 11:00 AM CDT Manufacturing Inspector: Delicia Izaguirre Status: Final Encounter: 2010-12-06 11:00:00.000 Type: Rooming Note Informant Parent is informant unless otherwise noted. Reason For Visit Here for echo and ekg Do you have any other appointments, tests or procedures within the [facility] system for this same day? yes. Pain [...] By: Delicia Izaguirre RN; 12/06/2010 10:14 AM BUSINESS SERVICES INTERN. documented in this encounter Plan of Treatment Upcoming Encounters Date Type Specialty Care Team Description 07/27/2022 Ancillary Procedure Cardiology Cordell Juarez MD [address] [place] [address] (Arleen valdes) 07/27/2022 Office Visit Cardiology Cordell Juarez MD [address] [place] [address] (Arleen valdes) documented as of this encounter Visit Diagnoses Not on filedocumented in this encounter
--- OUTSIDE RECORDS SUMMARY | 2022-04-10 10:32 | XMS_ITS | Encounter Summary ---
:2000 Author Organization [place] Address [address] [place] [address] Care Team Providers Name Role Phone Unavailable [...] Unknown, Provider - 10/02/2010 2:00 PM CDT Weight Inspector: Zoe Morales Status: Amended, Final Encounter: 2010-10-02 14:00:00.000 Type: Rooming Note Informant Parent is informant unless otherwise noted. Reason For Visit Patient is here for blood in stool follow up Do you have any other appointments, tests or procedures within the [facility] system for this same day? No. Pain Eval Current history of pain associated with this visit is as follows: Location: stomach Quality: achy Severity: 4-6 (Pain scale 1-10, with 10 being the worst) Duration: varies Timing: varies Context: none Modifying factors: none Associated signs/symptoms: none . 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 Home environment: No secondhand tobacco smoke in home Amended By: Zoe Morales ; 10/02/2010 2:01 PM COPPING MACHINE OPERATOR. Vital Signs Position for height measurement: standing [...] By: Zoe Morales MA; 10/02/2010 2:01 PM COPPING MACHINE OPERATOR. Signed By: Zoe Morales MA; 10/02/2010 2:01 PM COPPING MACHINE OPERATOR. documented in this encounter Plan of Treatment Upcoming Encounters Date Type Specialty Care Team Description 07/27/2022 Ancillary Procedure Cardiology Cordell Juarez MD [facility] [address] [place] [address] (Wo lucio) 07/27/2022 Office Visit Cardiology Cordell Juarez MD [address] [place] [address] (Arleen valdes) documented as of this encounter Visit Diagnoses Not on filedocumented in this encounter
--- OUTSIDE RECORDS SUMMARY | 2022-04-10 10:32 | XMS_ITS | Encounter Summary ---
:2000 Author Organization [place] Address [address] [place] [address] Care Team Providers Name Role Phone Unavailable Primary Care Provider Unavailable Encounter Details Date Type Department Care Team Description 03/27/2011 Orders Only [facility] Ot er and unspecified coagulation defects; [facility] Encounter for long-term (cur rent) use of anticoagulants [address] [place] [address] Social History Tobacco Use Types [...] Cordell Juarez MD [facility] [place] [address] [address] (Wo rk) 07/27/2022 Office Visit Cardiology Cordell Juarez MD [address] [place] [address] [place], [place] [phone] (Arleen valdes) documented as of this encounter [...] Signature INR 1.30 (H) 0.86 - 1.14 [facility] Specimen Anatomical Collection Method Collection Time Receive d Time (Source) Location / / Volume Laterality Blood specimen 03/27/2011 11:15 1 (specimen) AM CDT 11:20 AM CDT Jacky Stephenson MD LAB - BLOOD ORDERABLES Performing Organization Address City/State/ZIP Code Phon e Number [facility] [address] [place] [address] [facility] documented in this encounter Visit Diagnoses Diagnosis Other and unspecified coagulation defect s custodial (current) use of anticoagulant s Long-term (current) use of anticoagulant s documented in this encounter
--- OUTSIDE RECORDS SUMMARY | 2022-04-10 10:32 | XMS_ITS | Encounter Summary ---
:2000 Author Organization [place] Address [address] [facility] [place] [address] Care Team Providers Name Role Phone Unavailable Primary Care Provider Unavailable Reason for Referral Specialty Diagnoses / Procedures Referred By Contact Refer red To Contact Cordell Juarez M D [address] [facility] [address] [place], [place] [address] Referral ID Status Reason Start Date Expiration Date Visits Requ ested Visits Authorized Scheduling Instructions ANTICOAGULATION CLINIC COLLABORATIVE PRA CTICE AGREEMENT The following represents a collaborative practice agreement among the physicians of the Clinic and staff of the Anticoagulat ion Clinic Service ([facility]) Physicians shall: 1. Refer patients requiring anticoagulat ion to a specialty service staffed by personnel of Pharmacy Services and super vised by Clinic physicians. 2. Respond to questions and referrals fr pharmacy staff regarding delinquent or difficult patients. 3. Inform the [facility] staff when a new patie nt [...] Care Team Description 02/07/2011 Orders Only [facility] Cordell Juarez for Anticoagulation Clin marisabel Barajas MD long-term (current) [address] [place] [address] use of anticoagulants [place], [place] [address] (Primary Dx) [address] [place], [place] [phone] [address] Social History Tobacco Use Types Packs/Day Years [...] Ancillary Procedure Cardiology Cordell Juarez MD [address] [place] [address] [address] [place] [address] (Wo rk) 07/27/2022 Office Visit Cardiology Cordell Juarez MD [address] [facility] [address] [place] [address] (Wo rk) Scheduled Referrals Name Type Priority Associated Diagnoses Order S chedule INR CLINIC REFERRAL Referral Routine Encounter for long-te rm Ordered: 02/07/2011 (current) use of anticoagulants documented as of this encounter Visit Diagnoses Diagnosis alf (current) use of anticoagulant s - Primary Long-term (current) use of anticoagulant s documented in this encounter
--- OUTSIDE RECORDS SUMMARY | 2022-04-10 10:32 | XMS_ITS | Encounter Summary ---
:2000 Author Organization [place] Address [address] [place] [address] Care Team Providers Name Role Phone Unavailable Primary Care Provider Unavailable Encounter Details Date Type Department Care Team Description 01/22/2011 Orders Only [facility] Magda Del Real, S/ p Fontan procedure Anticoagulation Clin ic RN (Primary Dx) [address] [phone] Social History Tobacco Use Types Packs/Day [...] Ancillary Procedure Cardiology Cordell Juarez MD [address] [place] [phone] (Wo rk) 07/27/2022 Office Visit Cardiology Cordell Juarez MD [facility] [address] [address] (Arleen valdes) documented as of this encounter Visit Diagnoses Diagnosis S/P Fontan procedure - Primary Other postprocedural status documented in this encounter
--- OUTSIDE RECORDS SUMMARY | 2022-04-10 10:32 | XMS_ITS | Encounter Summary ---
:2000 Author Organization [place] Address [facility] [place] [address] Care Team Providers Name Role Phone Unavailable Primary Care Provider Unavailable Encounter Details Date Type Department Care Team Description 08/21/2010 Hospital Laboratory [facility] Dominga Ngo [facility] Pediatric MD [facility] [place] [facility] [address] [facility] [address] [place] [address] [phone] Social History Tobacco Use Types Packs/Day Years [...] 07/27/2022 Ancillary Procedure Cardiology Cordell Juarez MD [address] [place] [address] (Wo rk) 07/27/2022 Office Visit Cardiology Cordell Juarez MD [address] [place] [address], [place] [address] (Wo rk) documented as of this encounter Procedures Procedure Name Priority Date/Time Associated Diagnosis Comme nts SEND OUTS MISC TEST Routine 08/21/2010 5:30 PM Re sults for this TRIM INSTALLER procedure are i n the results section. documented in this encounter Results Send outs misc test (08/21/2010 5:30 PM TRIM INSTALLER) Analysis Performed At Patho logist Time Signature Lab Scanned SEND OUTS MISYS Result MISC TEST-Scann ed Specimen (Source) Anatomical Collection Method Collection Time Re ceived Time Location / / Volume Laterality 08/21/2010 5:30 PM TRIM INSTALLER Dominga Ngo MD LAB - BLOOD ORDERABLES Performing Organization Address City/State/ZIP Code Phon e Number MISYS documented in this encounter Visit Diagnoses Not on filedocumented in this encounter
--- OUTSIDE RECORDS SUMMARY | 2022-04-10 10:32 | XMS_ITS | Encounter Summary ---
:2000 Author Organization [place] Address Count includes the [facility] [address] Care Team Providers Name Role Phone Unavailable Primary Care Provider Unavailable Encounter Details Date Type Department Care Team Description 08/21/2010 Historic Results [facility] Dominga Ngo [facility] Pediatric MD [facility] [place] GASTR[facility] [address] [facility] [address] [place] [address] [place], [place] [phone] (Wo rk) [address] [phone] Social History Tobacco Use Types Packs/Day Years [...] Ancillary Procedure Cardiology Cordell Juarez MD [address] [place], [place] [address] [place], [place] [address] (Wo rk) 07/27/2022 Office Visit Cardiology Cordell Juarez MD [address] [place], [place] [address] [place] [address] (Wo rk) documented as of this encounter Procedures Procedure Name Priority Date/Time Associated Comments Diagnosis SEND OUTS MISC TEST Routine 08/21/2010 5:30 PM Re sults for this SENIOR UNDERWRITER procedure are i n the results section. CLOSTRIDIUM DIFFICILE Routine 08/21/2010 5:30 PM Results for this TOXIN B SENIOR UNDERWRITER procedure are i n the results section. ALPHA 1 ANTITRYPSIN Routine 08/21/2010 5:30 PM Re sults for this STOOL SENIOR UNDERWRITER procedure are i n the results section. documented in this encounter Results Send outs misc test (08/21/2010 5:30 PM SENIOR UNDERWRITER) [facility] g-Nostics Method Time Signature Test Name FECAL MISYS CALPROTECTIN Send Outs Feces MISYS Misc Test Specimen Normal Range SEE REPORT MISYS for Send Outs Misc Test Lab Scanned Laboratory MISYS Result Scanned Result [id number] Specimen Anatomical Collection Method Collection Time Receive d Time (Source) Location / / Volume Laterality 08/21/2010 5:30 PM 1 6:21 SENIOR UNDERWRITER PM SENIOR UNDERWRITER Dominga Ngo MD LAB - BLOOD ORDERABLES Performing Organization Address City/[facility] Code Phon e Number MIS[facility] Alpha 1 antitrypsin stool (08/21/2010 5:30 PM SENIOR UNDERWRITER) P athologist Signature [id number] 0.24 MISYS p Stool Comment: Reference range: 0.00 to 0.62 Unit: mg/g (Note) Performed by [employer], [address] [place] [id number] [email or web address]), Chanell Berrios MD, Lab. Director Specimen Anatomical Collection Method Collection Time Receive d Time (Source) Location / / Volume Laterality 08/21/2010 5:30 PM 1 6:21 SENIOR UNDERWRITER PM SENIOR UNDERWRITER Dominga Ngo MD LAB - STOOLS ORDERABLES Performing Organization Address City/[facility]/ZIP Code Phon e Number MIS[facility] Clostridium difficile toxin B PCR (08/21/2010 5:30 PM SENIOR UNDERWRITER) [facility] gist Method Time Signature Specimen Feces MISYS Description C Diff Toxin B Negative: MISYS PCR Clostridium difficile target DNA sequences NOT detected, presumed Comment: negative for Clostridium difficile toxi n B or the number of bacteria present may be below the limit of detection for the test. FDA approved assay performed using Payment plugin GeneXpert real-time PCR. A negative result does [...] Volume Laterality 08/21/2010 5:30 PM 1 6:21 SENIOR UNDERWRITER PM SENIOR UNDERWRITER Dominga Griselda Ngo MD LAB - MICRO GENERAL ORDERABL ES Performing Organization Address City/State/ZIP Code Phon e Number [facility] documented in this encounter Visit Diagnoses Not on filedocumented in this encounter
--- OUTSIDE RECORDS SUMMARY | 2022-04-10 10:32 | XMS_ITS | Encounter Summary ---
:2000 Author Organization [place] Address [address] [place] [address] Care Team Providers Name Role Phone Unavailable Primary Care Provider Unavailable Encounter Details Date Type Department Care Team Description 01/30/[address] [facility] Ot er and unspecified coagulation defects; [facility] Encounter for long-term (cur rent) use of anticoagulants [address] [place] [address] Social History Tobacco Use Types [...] 07/27/2022 Ancillary Procedure Cardiology Cordell Juarez MD [facility]0 [place] [address] [address] (Wo rk) 07/27/2022 Office Visit Cardiology Cordell Juarez MD [address] [place] [place] [address] [place], [place] [phone] (Arleen valdes) documented as of this encounter [...] Signature INR 2.00 (H) 0.86 - 1.14 [facility] Specimen Anatomical Collection Method Collection Time Receive d Time (Source) Location / / Volume Laterality Blood specimen 01/30/2011 3:15 PM 011 3:19 (specimen) CDT PM CDT Jacky Stephenson MD LAB - BLOOD ORDERABLES Performing Organization Address City/State/ZIP Code Phon e Number [facility] [address] [place] [address] [facility] documented in this encounter Visit Diagnoses Diagnosis Other and unspecified coagulation defect s [facility] (current) use of anticoagulant s Long-term (current) use of anticoagulant s documented in this encounter
--- OUTSIDE RECORDS SUMMARY | 2022-04-10 10:32 | XMS_ITS | Encounter Summary ---
:2000 Author Organization [place] Address [address] [facility] [place] [address] Care Team Providers Name Role Phone Unavailable [...] Unknown, Provider - 11/07/2010 12:48 PM CDT Outer Diameter Grinder: Pily Viera Status: Signed Encounter: 2010-11-07 12:48:00.000 Type: Telephone Note Call from mom. She reports that Jude's symptoms are mostly unchanged. She has learned that Jude has been bullied at school since last fall and she feels the symptoms began around the same time. She wonders if stress could be a factor. Electronically signed by:Pily Viera RN Nov 07 2010 12:50PM UX RESEARCH ASSOCIATE documented in this encounter Plan of Treatment Upcoming Encounters Date Type Specialty Care Team Description 07/27/2022 Ancillary Procedure Cardiology Larry, Cordell Barajas MD [address] [place] [address] (Wo rk) 07/27/2022 Office Visit Cardiology Larry, Cordell skelton MD [address] [place] [address] (Wo rk) documented as of this encounter Visit Diagnoses Not on filedocumented in this encounter
--- OUTSIDE RECORDS SUMMARY | 2022-04-10 10:32 | XMS_ITS | Encounter Summary ---
:2000 Author Organization [place] Address [address] [place] [address]. [place] [address] Care Team Providers Name Role Phone Unavailable Primary Care Provider Unavailable Encounter Details Date Type Department Care Team Description 12/07/2010 Orders Only [facility] Jacky Stephenson Other and unspecified coagulation defects; Clinic [place] MD Jayson Encounte r for long-term (current) use of anticoagulants Laboratory [address] [place] [address] Social History Tobacco Use Types Packs/Day [...] Ancillary Procedure Cardiology Cordell Juarez MD [address] [place] [address] (Wo rk) 07/27/2022 Office Visit Cardiology Cordell [facility] MD [facility] [address] [phone] (Wo rk) documented as of this encounter Visit Diagnoses Diagnosis Other and unspecified coagulation defect s senior living (current) use of anticoagulant s Long-term (current) use of anticoagulant s documented in this encounter
--- OUTSIDE RECORDS SUMMARY | 2022-04-10 10:32 | XMS_ITS | Encounter Summary ---
:2000 Author Organization [place] Address [address] [place] [address]. [place] [address] Care Team Providers Name Role Phone Unavailable Primary Care Provider Unavailable Reason for Visit Reason Onset Date Comments Anticoagulation 01/30/2011 Encounter Details Date Type Department Care Team Description 01/30/2011 Telephone [facility] Bayron Page , Anticoagulation Anticoagulation Clin ic [facility] [address] [place], [place] [phone] [facility] [phone] 420 [facility]PART[facility] [address] [place] [address] (Wo rk) Social History Tobacco [...] (mom) Results Given By: DANIELLA Rose/Aamir Page [facility] documented in this encounter Plan of Treatment Upcoming Encounters Date Type Specialty Care Team Description 07/27/2022 Ancillary Procedure Cardiology Cordell Juarez MD [address] [facility] [address] [place], [place] [address] (Wo rk) 07/27/2022 Office Visit Cardiology Cordell Juarez MD [address] [facility] [address] [place], [place] [address] (Wo rk) documented as of this encounter Visit Diagnoses Not on filedocumented in this encounter
--- OUTSIDE RECORDS SUMMARY | 2022-04-10 10:32 | XMS_ITS | Encounter Summary ---
:2000 Author Organization [place] Address [address] [place] [address] Care Team Providers Name Role Phone Unavailable Primary Care Provider Unavailable Encounter Details Date Type Department Care Team Description 10/02/2010 Office Visit-[facility] Patty Ngo MD [place] GASTROENTER[facility] OGY [address] [facility] 120 [place], [place] [phone] (Wo rk) Social History Tobacco Use Types Packs/Day Years Used Date Smoking Tobacco: Never Comments: none at home Alcohol Use Standard Drinks/Week Comments Not Asked 0 (1 standard drink = 0.6 oz pure alcoho l) Sex Assigned at Date Recorded Male 03/09/2019 1:21 PM CDT documented as of this encounter Progress Notes Dominga Ngo - 10/02/2010 2:00 PM CDT Reclamation Supervisor: Huber Dominga Status: Final - Signature Encounter: 2010-10-02 14:00:00.000 Type: Peds GI Letter documented in this encounter Plan of Treatment Upcoming Encounters Date Type Specialty Care Team Description 07/27/2022 Ancillary Procedure Cardiology Larry, Cordell Barajas MD [address] [facility] [address] [place] [address] (Wo rk) 07/27/2022 Office Visit Cardiology Cordell Juarez MD [address] [place] [address] (Wo rk) documented as of this encounter Visit Diagnoses Not on filedocumented in this encounter
--- OUTSIDE RECORDS SUMMARY | 2022-04-10 10:32 | XMS_ITS | Encounter Summary ---
:2000 Author Organization [place] Address [address] [place] [address]. [place] [address] Care Team Providers Name Role Phone Unavailable Primary Care Provider Unavailable Reason for Visit Reason Onset Date Comments Anticoagulation 03/23/2011 Encounter Details Date Type Department Care Team Description 03/23/2011 Telephone [facility] Bayron Page , Anticoagulation Anticoagulation Clin ic [facility] 420 [place], [place] [address] [facility] [phone] 420 [facility] 812 [place] [address] (Wo rk) Social [...] MD [address] [place] [address] (Wo rk) 07/27/2022 Office Visit Cardiology Cordell Juarez MD [address] [place] [address] (Wo rk) documented as of this encounter Visit Diagnoses Not on filedocumented in this encounter
--- OUTSIDE RECORDS SUMMARY | 2022-04-10 10:32 | XMS_ITS | Encounter Summary ---
:2000 Author Organization [place] Address [address] [place] [address] Care Team Providers Name Role Phone Unavailable Primary Care Provider Unavailable Encounter Details Date Type Department Care Team Description 12/14/2010 Orders Only [facility] Ot er and unspecified coagulation defects; [facility] Encounter for long-term (cur rent) use of anticoagulants [address] [place] [address] Social History Tobacco Use Types [...] 07/27/2022 Ancillary Procedure Cardiology Regi Juarez MD [facility]0 [place] [address] [address] (Wo rk) 07/27/2022 Office Visit Cardiology Regi Juarez MD [address] [place] [address] [place] [address] [place], [place] [phone] (Arleen valdes) documented as of this encounter [...] Signature INR 3.00 (H) 0.86 - 1.14 [facility] Comment: FAXED TO [facility], DR REGI JUAREZ, Tacho T [phone] Specimen Anatomical Collection Method Collection Time Receive d Time (Source) Location / / Volume Laterality Blood specimen 12/14/2010 11:08 1 (specimen) AM CDT 11:09 AM CDT Jacky Stephenson MD LAB - BLOOD ORDERABLES Performing Organization Address City/State/ZIP Code Phon e Number [facility] [address] [place], [place] [phone] [facility] documented in this encounter Visit Diagnoses Diagnosis Other and unspecified coagulation defect s skilled nursing (current) use of anticoagulant s Long-term (current) use of anticoagulant s documented in this encounter
--- OUTSIDE RECORDS SUMMARY | 2022-04-10 10:33 | XMS_ITS | Encounter Summary ---
:2000 Author Organization [place] Address [address] [place] [address] Care Team Providers Name Role Phone Unavailable Primary Care Provider Unavailable Reason for Referral Referral not Required - Closed Specialty Diagnoses / Procedures Referred By Contact Refer red To Contact Diagnoses Congenital anomalies of intestinal fixation Ignacio Solo MD [facility] [address] [place], [place] [id number] [place] [address] [place] [address] Phone: [phone] Referral ID Status Reason Start Date Expiration Date Visits Requ ested Visits Authorized [id number] Closed 05/18/2010 05/18/2010 1 1 ACE WATER MANAGER Encounter Details Date Type Department Care Team Description 05/18/2010 Orders Only [facility] Ignacio Solo Cong enital anomalies Clinic Meir 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 Reason: Blood in Stool Requested provider: Pediatric GI Comment: This message is being sent by Jaimie Bills on behalf of Jude Bills Please send a request for a Pediatric GI referral. Dr. Yoder and Dr. Wayne both felt Jude should be seen by GI. Per [facility] Message sent order for co-sign. documented in this encounter Plan of Treatment Upcoming Encounters Date Type Specialty Care Team Description 07/27/2022 Ancillary Procedure Cardiology Cordell Juarez MD [facility] [address] [id number] (Wo rk) 07/27/2022 Office Visit Cardiology Cordell Juarez MD [address] [address] [place], [place] [phone] (Wo rk) documented as of this encounter Procedures Procedure Name Priority Date/Time Associated Diagnosis Comme [facility] GASTROENTEROLOGY PEDS Routine 10/02/2010 Congenital anoma [...]
--- OUTSIDE RECORDS SUMMARY | 2022-04-10 10:33 | XMS_ITS | Encounter Summary ---
:2000 Author Organization [place] Address [facility] [place] [address] Care Team Providers Name Role Phone Unavailable Primary Care Provider Unavailable Encounter Details Date Type Department Care Team Description 07/26/2010 Results Only [facility] Rudy Juarez MD Hospital Results [address] [place], [place] [phone] (Wo rk) Social History Tobacco Use Types [...] Ancillary Procedure Cardiology Cordell Juarez MD [address] [place] [phone] (Wo rk) 07/27/2022 Office Visit Cardiology Cordell Juarez MD [address] [place] [address] [phone] (Wo rk) documented as of this encounter Procedures Procedure Name Priority Date/Time Associated Diagnosis Comme nts ECHO PEDIATRIC Routine 07/26/2010 2:13 PM Results for this COMPLETE BATTERY CHARGER TESTER procedure are i n the results section. documented in this encounter Results Echo pediatric complete (07/26/2010 2:13 PM BATTERY CHARGER TESTER) Anatomical Region Laterality Modality Echocardiography Specimen (Source) Anatomical Collection Method Collection Time Re ceived Time Location / / Volume Laterality 07/26/2010 2:13 PM BATTERY CHARGER TESTER Impressions 08/25/2010 11:30 AM BATTERY CHARGER TESTER PEDIATRIC ECHOCARDIOGRAM ?? [facility] ? ?Echocardiogram Lab ? Age: ??1 ? Wt: ? Ht: ? BSA: ?BP: ? Xcelera ? Snow Removing Supervisor: ??kh INDICATION: ?? A cardiac ultrasound study [...] Fonta n anastomosis. ?? Artemio Silva MD-Pager [phone] ?? Gayathri Ayala MD-Pager [phone] ?? Jorge Link MD-Pager [phone] or [phone] Cordell Juarez MD-Pager [phone] ?? Jayson Bailey MD-Pager [phone] Vilma Rucker MD-Pager [phone] Cordell Juarez MD CV PEDS ECHO ORDERABLES documented in this encounter Visit Diagnoses Not on filedocumented in this encounter
--- OUTSIDE RECORDS SUMMARY | 2022-04-10 10:33 | XMS_ITS | Encounter Summary ---
:2000 Author Organization [place] Address [address] [place] [address] Care Team Providers Name Role Phone Unavailable [...] Unknown, Provider - 05/15/2010 9:00 AM CST Textile Designs Sales Representative: Katalina Aquino Status: Final Encounter: 15 May 2010 Type: Rooming Note Reason For Visit PIERRE BILLS is a 10 year old male coming to clinic for consultation for bleeding and hematoma on arm. Do you have any other appointments, tests or procedures within the [facility] system for this same day? No. Pain Eval Current history of pain associated with this visit is denied. Personal Hx Home environment: No secondhand tobacco smoke in home. Vital Signs Recorded by Katalina Aquino on 15 May 2010 09:44 AM BP:108/68, [...] By: Katalina Aquino RN; 05/15/2010 9:48 AM NIGHT SHIFT SUPERVISOR. documented in this encounter Plan of Treatment Upcoming Encounters Date Type Specialty Care Team Description 07/27/2022 Ancillary Procedure Cardiology Cordell Juarez MD [address] [place] [address] (Arleen valdes) 07/27/2022 Office Visit Cardiology Cordell Juarez MD [address] [facility] [address] [place] [address] (Arleen valdes) documented as of this encounter Visit Diagnoses Not on filedocumented in this encounter
--- OUTSIDE RECORDS SUMMARY | 2022-04-10 10:33 | XMS_ITS | Encounter Summary ---
:2000 Author Organization [place] Address [facility] [place] [address] Care Team Providers Name Role Phone Unavailable Primary Care Provider Unavailable Reason for Referral Referral not Required - Closed Specialty Diagnoses / Procedures Referred By Contact Refer red To Contact Diagnoses [place] Ignacio Solo MD [facility] [address] [address] [address] [place] [address] Phone: [phone] Referral ID Status Reason Start Date Expiration Date Visits Requ ested Visits Authorized [id number] Closed 05/10/2010 05/10/2010 1 1 PAPER CARRIER Reason for Visit Reason Comments Recheck Medication also L lower arm injury Mond ay Encounter Details Date Type Department Care Team Description 05/10/2010 Office Visit [facility] Ignacio Solo BRUI SING (Primary Dx); Clinic Meir DUPREE ADHD (attention deficit hyperactivity di sorder); [address] [place] [id number] Social History Tobacco Use Types Packs/Day Years [...] Comments Blood Pressure 104/70 05/10/2010 2:09 PM NEWSPAPER CARRIER Pulse - - Temperature 36.6 ??C (97.8 ??F) 05/10/2010 2:09 PM NEWSPAPER CARRIER Respiratory Rate - - Oxygen Saturation - - Inhaled Oxygen Concentration - - Weight 26.3 kg (58 lb) 05/10/2010 2:09 PM NEWSPAPER CARRIER Height 130.2 cm (4' 3.25) 05/10/2010 2:09 PM NEWSPAPER CARRIER Body Mass Index 15.53 05/10/2010 2:09 PM NEWSPAPER CARRIER Body Mass Index Percentile 24.19 % 05/10/2010 2:09 PM CS T Growth Chart: [facility] (Boys, 2-20 Years) documented in this encounter [...] Cont current dose. F/u within 6 months PAPER CARRIER documented in this encounter Nursing Notes 05/10/2010 [...] Ancillary Procedure Cardiology Cordell Juarez MD [address] [id number] ( lucio) 07/27/2022 Office Visit Cardiology Cordell Juarez MD [address] [place], [place] [address] (Arleen valdes) documented as of this encounter Procedures Procedure Name Priority Date/Time Associated Diagnosis Comme nts ONCOLOGY/HEMATOLOGY ADULT GENERAL ACTIVITIES THERAPIST Routine 05/15/2010 Bruis ing REFERRAL documented in [...]
--- OUTSIDE RECORDS SUMMARY | 2022-04-10 10:33 | XMS_ITS | Encounter Summary ---
:2000 Author Organization [place] Address [address] [facility] [place] [address] Care Team Providers Name Role Phone Unavailable Primary Care Provider Unavailable Encounter Details Date Type Department Care Team Description 07/26/2010 Historic Results [facility] Alden Juarez MD Cardiology [address] [facility] [address] [place] [address] [place], [place] [address] (Wo rk) Social History Tobacco Use Types [...] Ancillary Procedure Cardiology Cordell Juarez MD [address] [place] [address] [phone] (Wo rk) 07/27/2022 Office Visit Cardiology Cordell Juarez MD [facility] [address] [id number] (Wo rk) documented as of this encounter Procedures Procedure Name Priority Date/Time Associated Comments Diagnosis IGG Routine 07/26/2010 3:40 PM Results f or this PHOTOGRAMMETRIC SURVEYOR procedure are i n the results section. CBC WITH PLATELETS & Routine 07/26/2010 3:40 PM R esults for this DIFFERENTIAL PHOTOGRAMMETRIC SURVEYOR procedure are i n the results section. TSH Routine 07/26/2010 3:40 PM Results f or this PHOTOGRAMMETRIC SURVEYOR procedure are i n the results section. T4 FREE Routine 07/26/2010 3:40 PM Results f or this PHOTOGRAMMETRIC SURVEYOR procedure are i n the results section. N TERMINAL PRO BNP Routine 07/26/2010 3:40 PM Res ults for this OUTPATIENT PHOTOGRAMMETRIC SURVEYOR procedure are i n the results section. CRP INFLAMMATION Routine 07/26/2010 3:40 PM Resul ts for this PHOTOGRAMMETRIC SURVEYOR procedure are i n the results section. COMPREHENSIVE Routine 07/26/2010 3:40 PM Results for this METABOLIC PANEL PHOTOGRAMMETRIC SURVEYOR procedure ar e in the results section. documented in this encounter Results (ABNORMAL) CBC with platelets differential (07/26/2010 3:40 PM PHOTOGRAMMETRIC SURVEYOR) athologist Signature MCV 82 77 - 100 [...] Absolute Lymphocytes 2.2 1.0 - 5.8 10e9/L IN SYS Absolute Monocytes 0.6 0.0 - 1.3 10e9/L MISY S Absolute Eosinophils 0.1 0.0 - 0.7 10e9/L IN SYS Absolute Basophils 0.1 0.0 - 0.2 10e9/L MISY S Platelet Estimate Normal MISYS Diff Method Manual Method MISYS RBC Morphology Consistent with reported results MISYS Reactive Lymphs Present MISYS Specimen Anatomical Collection Method Collection Time Receive d Time (Source) Location / / Volume Laterality 07/26/2010 3:40 PM 1 3:29 PHOTOGRAMMETRIC SURVEYOR PM PHOTOGRAMMETRIC SURVEYOR Cordell Juarez MD LAB - BLOOD ORDERABLES Performing Organization Address City/State/ZIP Code Phon e Number MISYS (ABNORMAL) Comprehensive metabolic panel (07/26/2010 3:40 PM PHOTOGRAMMETRIC SURVEYOR) P athologist Signature Sodium 139 133 - [...] Volume Laterality 07/26/2010 3:40 PM 1 3:29 PHOTOGRAMMETRIC SURVEYOR PM PHOTOGRAMMETRIC SURVEYOR Cordell Juarez MD LAB - BLOOD ORDERABLES Performing Organization Address City/State/ZIP Code Phon e Number MISYS CRP inflammation (07/26/2010 3:40 PM PHOTOGRAMMETRIC SURVEYOR) P athologist Signature CRP Inflammation <5.0 0.0 - 8.0 [place]IS[place] mg/L Specimen Anatomical Collection Method Collection Time Receive d Time (Source) Location / / Volume Laterality 07/26/2010 3:40 PM 1 3:29 PHOTOGRAMMETRIC SURVEYOR PM PHOTOGRAMMETRIC SURVEYOR Cordell Juarez MD LAB - BLOOD ORDERABLES Performing Organization Address City/State/ZIP Code Phon e Number MISYS T4 free (07/26/2010 3:40 PM PHOTOGRAMMETRIC SURVEYOR) athologist Signature T4 Free 1.27 0.70 - 1.85 [place] ng/dL Specimen Anatomical Collection Method Collection Time Receive d Time (Source) Location / / Volume Laterality 07/26/2010 3:40 PM 1 3:29 PHOTOGRAMMETRIC SURVEYOR PM PHOTOGRAMMETRIC SURVEYOR Cordell Juarez MD LAB - BLOOD ORDERABLES Performing Organization Address City/[facility]/ZIP Code Phon e Number MISYS IgG (07/26/2010 3:40 PM PHOTOGRAMMETRIC SURVEYOR) athologist Signature IGG 1320 695 - 1620 [place] mg/dL Specimen Anatomical Collection Method Collection Time Receive d Time (Source) Location / / Volume Laterality 07/26/2010 3:40 PM 1 3:29 PHOTOGRAMMETRIC SURVEYOR PM PHOTOGRAMMETRIC SURVEYOR Cordell Juarez MD LAB - BLOOD ORDERABLES Performing Organization Address City/[facility]/ZIP Code Phon e Number MISYS N terminal pro BNP outpatient (07/26/2010 3:40 PM PHOTOGRAMMETRIC SURVEYOR) athologist Signature N-Terminal Pro 73 0 - 240 MIS[place] Bnp pg/mL Specimen Anatomical Collection Method Collection Time Receive d Time (Source) Location / / Volume Laterality 07/26/2010 3:40 PM 1 3:29 PHOTOGRAMMETRIC SURVEYOR PM PHOTOGRAMMETRIC SURVEYOR Cordell Juarez MD LAB - BLOOD ORDERABLES Performing Organization Address City/State/ZIP Code Phon e Number MISYS TSH (07/26/2010 3:40 PM PHOTOGRAMMETRIC SURVEYOR) athologist Signature TSH 3.91 0.4 - 5.0 MIS[place] mU/L Specimen Anatomical Collection Method Collection Time Receive d Time (Source) Location / / Volume Laterality 07/26/2010 3:40 PM 1 3:29 PHOTOGRAMMETRIC SURVEYOR PM PHOTOGRAMMETRIC SURVEYOR Cordell Juarez MD LAB - BLOOD ORDERABLES Performing Organization Address City/State/ZIP Code Phon e Number MISYS documented in this encounter Visit Diagnoses Not on filedocumented in this encounter
--- OUTSIDE RECORDS SUMMARY | 2022-04-10 10:33 | XMS_ITS | Encounter Summary ---
:2000 Author Organization [place] Address [facility] [place] [address] Care Team Providers Name Role Phone Unavailable Primary Care Provider Unavailable Encounter Details Date Type Department Care Team Description 06/05/2010 Office Visit-[facility] INTERFACE [facility] DEPT Nilo Branham, RN [facility] [address] [place] [address] Social History Tobacco Use Types Packs/Day Years Used Date Smoking Tobacco: Never Comments: none at home Alcohol Use Standard Drinks/Week Comments Not Asked 0 (1 standard drink = 0.6 oz pure alcoho l) Sex Assigned at Date Recorded Male 03/09/2019 1:21 PM CDT documented as of this encounter Progress Notes Nilo Branham - 06/05/2010 10:30 AM CST Product Design Manager: Nilo Branham Status: Final Encounter: 05 Jun 2010 Type: Rooming Note Informant Parent is informant unless otherwise noted. Reason For Visit Blood in stool Do you have any other appointments, tests or procedures within the [place] system for this same day? No. Pain [...] By: Nilo Branham MA; 06/05/2010 11:08 AM CHAIR SPRING ASSEMBLER. R SPRING ASSEMBLER documented in this encounter Plan of Treatment Upcoming Encounters Date Type Specialty Care Team Description 07/27/2022 Ancillary Procedure Cardiology Cordell Juarez MD [address] [place] [address] (Arleen valdes) 07/27/2022 Office Visit Cardiology Cordell Juarez MD [address] [place] [address] (Arleen valdes) documented as of this encounter Visit Diagnoses Not on filedocumented in this encounter
--- OUTSIDE RECORDS SUMMARY | 2022-04-10 10:33 | XMS_ITS | Encounter Summary ---
:2000 Author Organization [place] Address [address] [place] [address] Care Team Providers Name Role Phone Unavailable Primary Care Provider Unavailable Encounter Details Date Type Department Care Team Description 07/26/2010 Office Visit-[facility] INTERFACE [facility] DEPT Provider, [facility] Nurs e Social History Tobacco Use Types Packs/Day Years Used Date Smoking Tobacco: Never Comments: none at home Alcohol Use Standard Drinks/Week Comments Not Asked 0 (1 standard drink = 0.6 oz pure alcoho l) Sex Assigned at Date Recorded Male 03/09/2019 1:21 PM CDT documented as of this encounter Progress Notes Provider, [facility] Nurse - 07/26/2010 1:15 PM CST Retail Asset Protection Specialist: Delicia Izaguirre Status: Final Encounter: 26 Jul 2010 Type: Rooming Note Informant Parent is informant unless otherwise noted. Reason For Visit Hypoplastic left heart Do you have any other appointments, tests or procedures within the [place] system for this same day? No. Pain [...] By: Delicia Izaguirre RN; 07/26/2010 1:28 PM LOADING INSPECTOR. documented in this encounter Plan of Treatment Upcoming Encounters Date Type Specialty Care Team Description 07/27/2022 Ancillary Procedure Cardiology Cordell Juarez MD [address] [place], [place] [address] (Arleen valdes) 07/27/2022 Office Visit Cardiology Cordell Juarez MD [address] [place], [place] [address] (Arleen valdes) documented as of this encounter Visit Diagnoses Not on filedocumented in this encounter
--- OUTSIDE RECORDS SUMMARY | 2022-04-10 10:33 | XMS_ITS | Encounter Summary ---
:2000 Author Organization [place] Address [facility] [place] [address] Care Team Providers Name Role Phone Unavailable Primary Care Provider Unavailable Reason for Visit Reason Onset Date Comments Medication Request 05/02/2010 Focalin Encounter Details Date Type Department Care Team Description 05/02/[address] [facility] Ignacio Solo, [facility] cation Request Clinic Meir DUPREE (Focalin) [address] [place], [place] [id number] [phone] Social History Tobacco Use Types Packs/Day Years [...] 2:24 PM CST 05/08/10 Rx left at front desk associate. Mom has appt 05/10/10 @ 2:[address] Solo. CIATE DEAN Telephone Encounter - Cheri Jurado - 05/04/2010 8:18 AM CST Left message for mom to return call. Dr. Solo mentioned need for f/u 02/13/10 encounter as well. Needs to be seen within the next month. CIATE DEAN Telephone Encounter - Tory Mann - 05/03/2010 11:15 AM CST In pt was advised f/u with 6 months according to the note CIATE DEAN Telephone Encounter - Christa Blackman - 05/02/2010 6:34 PM CST Called mom to notify her of MD's message, she was very upset and stated that she hasn't had to bringhim in for a follow up and hasn't been told that she has to. I asked her if she would like to be transferred to the front desk associate to make an appointment and then we got disconnected. CIATE DEAN Telephone Encounter - Tory Mann - 05/02/2010 5:45 PM CST Pt has not been seen for ADD f/u since Can not do refill Shouldn't wait till the last moment to request a refill CIATE DEAN Telephone Encounter - Tracy Tellez - 05/02/2010 4:46 PM CST Mom requesting hard copy refill of Focalin. Zero pills left in current rx. Please call her @ [phone], ok to leave message. Thank you, Tracy Tellez RN/ [place] [facility] CIATE DEAN documented in this encounter Plan of Treatment Upcoming Encounters Date Type Specialty Care Team Description 07/27/2022 Ancillary Procedure Cardiology Cordell Juarez MD [address] [place] [address] (Wo rk) 07/27/2022 Office Visit Cardiology Cordell Juarez MD [address] [place] [address] (Wo rk) documented as of this encounter Visit Diagnoses Diagnosis Attention deficit disorder with hyperact ivity(314.01) - Primary Attention deficit disorder with hyperact ivity documented in this encounter
--- OUTSIDE RECORDS SUMMARY | 2022-04-10 10:33 | XMS_ITS | Encounter Summary ---
:2000 Author Organization [place] Address [address] [place] [address] Care Team Providers Name Role Phone Unavailable Primary Care Provider Unavailable Encounter Details Date Type Department Care Team Description 06/05/2010 Office Visit-[facility] Dominga Ngo Pediatric MD [facility] [address] [facility] [address] [place] [address] [place], [place] [phone] (Wo rk) [address] [phone] Social History Tobacco Use Types Packs/Day Years Used Date Smoking Tobacco: Never Comments: none at home Alcohol Use Standard Drinks/Week Comments Not Asked 0 (1 standard drink = 0.6 oz pure alcoho l) Sex Assigned at Date Recorded Male 03/09/2019 1:21 PM CDT documented as of this encounter Progress Notes Dominga Ngo - 06/05/2010 10:30 AM CST Home Security Alarm Installer: Dominga Ngo Status: Final Encounter: 05 Jun [...] at the age of 16 months from [place], so his family history is not available. [...] any further questions. Sincerely, Dominga Ngo MD Water/Wastewater Project Engineer Pediatric Gastroenterology, Hepatology and Nutrition Department of Pediatrics, [facility] CC: PCP and Parents of PIERRE BILLS. Signature Signed By: Dominga Ngo MD; 06/13/2010 2:30 PM TRANSLATOR/INTERPRETER. SLATOR/INTERPRETER documented in this encounter Plan of Treatment Upcoming Encounters Date Type Specialty Care Team Description 07/27/2022 Ancillary Procedure Cardiology LarryCordell MD [address] [facility] [place] [address] (Wo rk) 07/27/2022 Office Visit Cardiology Larry, Cordell skelton MD [address] [facility] [place] [address] (Wo rk) documented as of this encounter Visit Diagnoses Not on filedocumented in this encounter
--- OUTSIDE RECORDS SUMMARY | 2022-04-10 10:33 | XMS_ITS | Encounter Summary ---
:2000 Author Organization [place] Address [facility] [place] [address] Care Team Providers Name Role Phone Unavailable Primary Care Provider Unavailable Encounter Details Date Type Department Care Team Description 07/26/2010 Office Visit-[facility] Cordell Juarez MD [facility] [address] [place] [address] Specialty Clinic [address] [place] [address] [facility] [address] [place] [address] [facility] [address] Social History Tobacco Use Types Packs/Day Years Used Date Smoking Tobacco: Never Comments: none at home Alcohol Use Standard Drinks/Week Comments Not Asked 0 (1 standard drink = 0.6 oz pure alcoho l) Sex Assigned at Date Recorded Male 03/09/2019 1:21 PM CDT documented as of this encounter Progress Notes Cordell Juarez - 07/26/2010 1:15 PM CST Crew Supervisor: Cordell Juarez Status: Final - Signature Encounter: 2010-07-26 13:15:00.000 Type: Peds Cardiology Letter T MGR documented in this encounter Plan of Treatment Upcoming Encounters Date Type Specialty Care Team Description 07/27/2022 Ancillary Procedure Cardiology Cordell Juarez MD [address] [place], [place] [address] (Wo rk) 07/27/2022 Office Visit Cardiology Cordell Juarez MD [address] [place], [place] [address] (Wo rk) documented as of this encounter Visit Diagnoses Not on filedocumented in this encounter
--- OUTSIDE RECORDS SUMMARY | 2022-04-10 10:33 | XMS_ITS | Encounter Summary ---
:2000 Author Organization [place] Address [address] [place] [address] Care Team Providers Name Role Phone Unavailable Primary Care Provider Unavailable Reason for Visit Reason Onset Date Comments Refill Request 03/20/2010 Encounter Details Date Type Department Care Team Description 03/20/2010 MyC Refill [facility] Ignacio Solo MD Refill Request [place] [address] [facility] [address] [place] [address] [place] [address] [phone] Social History Tobacco Use Types Packs/Day Years [...] AM CDT Prescription placed up front for pickle pumper, left message for mom. Christa Blackman CMA Telephone Encounter - Yessi Hernandez - 03/20/2010 1:40 PM CDT Message from [employer]: Jude Bills would like a refill of the following medications: FOCALIN XR 10 MG PO CP24 [Ignacio Mares Roseannetyrell] Preferred pharmacy: Please call [phone] when ready to pickle pumper Comment: This message is being sent by Jaimie Bills on behalf of Jude Gomeslease Call [phone] when the prescription is ready for pickle pumper at the clinic.Thank you. documented in this encounter Plan of Treatment Upcoming Encounters Date Type Specialty Care Team Description 07/27/2022 Ancillary Procedure Cardiology Cordell Juarez MD [address] [facility] [address] [address] [place] [address] (Wo rk) 07/27/2022 Office Visit Cardiology Cordell Juarez MD [address] [facility] [address] [place] [address] (Wo rk) documented as of this encounter Visit Diagnoses Diagnosis Attention deficit disorder with hyperact ivity(314.01) - Primary Attention deficit disorder with hyperact ivity documented in this encounter
--- OUTSIDE RECORDS SUMMARY | 2022-04-10 10:33 | XMS_ITS | Encounter Summary ---
:2000 Author Organization [place] Address [facility] [place] [address] Care Team Providers Name Role Phone Unavailable Primary Care Provider Unavailable Encounter Details Date Type Department Care Team Description 05/15/2010 Office Visit-[facility]le [facility] Building [facility] 1st Floor, [address] [place] [address] [place] [address] [facility] [place] [address] Social History Tobacco Use Types Packs/Day Years Used Date Smoking Tobacco: Never Comments: none at home Alcohol Use Standard Drinks/Week Comments Not Asked 0 (1 standard drink = 0.6 oz pure alcoho l) Sex Assigned at Date Recorded Male 03/09/2019 1:21 PM CDT documented as of this encounter Progress Notes Rachelle Yoder - 05/15/2010 9:00 AM CST Hair Designer: Rachelle Yoder Status: Final - Signature Encounter: 15 May 2010 Type: ONC Letter Division of Hematology, Oncology and Blood and Marrow Transplantation Department of Pediatrics [place] Mail Code [address] [place] [address] Office: [phone] [facility] [place] First Floor, [address] [place] [address] May 15, 2010 Ignacio Solo M.D. [facility] [address] [place], [facility] [address] [place] [address] RE: Jude Bills : 2000 MARTHA: 05/15/2010 [...] at approximately 16 months of age from [place]. 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 A central shunt was placed at 18 months of age followed by bilateral Fortino anastomosis. In 2002, he had an extracardiac Fontan performed at the [facility]. He underwent device occlusion of the Fontan [...] irrelevant. Jude was adopted in 2002 from [place]. From a social perspective, Jude lives at [...] or contact me. Sincerely, Rachelle Yoder M.D. [facility] Division of Hematology, Oncology, and Transplantation NB- Jude's evaluation shows no explaination for bleeding tendency other than aspirin effect on his platelets. I would suggest he be evaluated by a lighter captain as per Dr. Wayne's comments noted above. MS:11 cc: Cordell Juarez MD Pediatric Cardiology [facility] 94 Jostin Wayne M.D. Electronically signed by:Rachelle Yoder M.D. May 22 2010 3:03PM TIE BUCKER Author Reviewed by:Cordell Juarez M.D. May 24 2010 1:51PM TIE BUCKER Reviewed by:Jostin Wayne M.D.,PhD Jun 01 2010 8:14AM TIE BUCKER BUCKER documented in this encounter Plan of Treatment Upcoming Encounters Date Type Specialty Care Team Description 07/27/2022 Ancillary Procedure Cardiology Cordell Juarez MD [address] [place] [address] (Wo lucio) 07/27/2022 Office Visit Cardiology Cordell Juarez MD [address] [place] [address] (Wo lucio) documented as of this encounter Visit Diagnoses Not on filedocumented in this encounter
--- OUTSIDE RECORDS SUMMARY | 2022-04-10 10:33 | XMS_ITS | Encounter Summary ---
:2000 Author Organization [place] Address [address] [place] [address]. [place] [address] Care Team Providers Name Role Phone Unavailable Primary Care Provider Unavailable Encounter Details Date Type Department Care Team Description 06/27/2010 Hospital Pathology [facility] MD Griselda Results [place] [facility] [address] [place] [address] (Wo rk) Social History Tobacco [...] 07/27/2022 Ancillary Procedure Cardiology Cordell Juarez MD [facility] [address] [id number] (Wo rk) 07/27/2022 Office Visit Cardiology Cordell Juarez MD [address] [place], [place] [address] (Wo rk) documented as of this encounter Procedures Procedure Name Priority Date/Time Associated Diagnosis Comme [facility] SURGICAL PATHOLOGY Routine 06/27/2010 12:00 AM Re sults for this EXAM LIP OF SHANK CUTTER procedure are i n the results section. documented in this encounter Results Surgical pathology exam (06/27/2010 12:00 AM LIP OF SHANK CUTTER) Component Value Ref Test Analysis Performed At [facility] Range Method Time Signature Copath Report Patient Name: JUDE BILLS MR#: [id number] Specimen #: [id number] Collected: 06/27/2010 Received: 06/27/2010 [...] rectosigmoid. ?? The specimen consists of four yellow/mosley tissue fragments ranging in siz e from [...] Lee M.D. /nan 06/29/10 TESTING LAB LOCATION: [facility], [address] ?? [id number] COLLECTION SITE: Client: [facility] Location: U3C (B) Specimen (Source) Anatomical Collection Method Collection Time Re ceived Time Location / / Volume Laterality 06/27/2010 06/27/2010 2:51 PM LIP OF SHANK CUTTER Dominga Griselda BISHOP - ELIAN Performing Organization Address City/State/ZIP Code Phon e Number COPATH documented in this encounter Visit Diagnoses Not on filedocumented in this encounter
--- OUTSIDE RECORDS SUMMARY | 2022-04-10 10:33 | XMS_ITS | Encounter Summary ---
:2000 Author Organization [place] Address [facility] [place] [address] Care Team Providers Name Role Phone Unavailable Primary Care Provider Unavailable Reason for Referral Specialty Diagnoses / Procedures Referred By Contact Refer red To Contact Ignacio Solo M D [address] [place] [address] Referral ID Status Reason Start Date Expiration Date Visits Requ ested Visits Authorized Encounter Details Date Type Department Care Team Description 07/26/2010 Orders Only [facility] Ignacio Solo DIAG NOSIS NOT YET Clinic Meir DUPREE DEFINED (Primary Dx) [address] [place] [phone] Social History Tobacco Use Types Packs/Day Years [...] Procedure Cardiology Cordell Juarez MD [address] [facility] [address] [place], [place] [address] (Wo rk) 07/27/2022 Office Visit Cardiology Cordell Juarez MD [address] [place], [place] [address] (Wo rk) documented as of this encounter Procedures Procedure Name Priority Date/Time Associated Diagnosis Comme nts PEDIATRIC CARDIOLOGY EVAL Routine 07/26/2010 DIAGNOSIS NOT Y ET DEFINED DIRECTOR CLINICAL RESEARCH REFERRAL documented in this encounter Results CARDIOLOGY EVAL PEDS REFERRAL (07/26/2010) Narrative This result has an attachment that is no t available. Ignacio Solo MD REFERRAL documented in this encounter Visit Diagnoses Diagnosis DIAGNOSIS NOT YET DEFINED - Primary documented in this encounter
--- OUTSIDE RECORDS SUMMARY | 2022-04-10 10:33 | XMS_ITS | Encounter Summary ---
:2000 Author Organization [place] Address [address] [place] [address] Care Team Providers Name Role Phone Unavailable Primary Care Provider Unavailable Reason for Visit Reason Onset Date Comments Refill Request 07/25/2010 focalin Encounter Details Date Type Department Care Team Description 07/25/2010 Refill [facility] Ignacio Solo MD Refill Request [facility] [place] [address] BL[place] (focalin) [address] [place] [address] [place], [place] [phone] (Wo rk) [address] [phone] Social History Tobacco Use Types Packs/Day Years [...] AM CST 07/25/10 Called parents. RX at motel front desk clerk to be picked up [employer] MEDIA ASSISTANT Telephone Encounter - Ignacio Solo - 07/25/2010 11:46 AM CST rx done [employer] MEDIA ASSISTANT Telephone Encounter - Nu Zimmerman - 07/25/2010 11:45 AM CST Mom calling for RF of Focalin XR. Current dose is working well. Last o/v 05/10/10. Pt is out of medication. Please call mom when rx is ready for p/u. Fyi, mom states that she requested RF through [employer], but no message seen at this time. Nu Zimmerman RN ARY MEDIA ASSISTANT documented in this encounter Plan of Treatment Upcoming Encounters Date Type Specialty Care Team Description 07/27/2022 Ancillary Procedure Cardiology Cordell Juarez MD [address] [facility] [address] [place], [place] [phone] (Wo rk) 07/27/2022 Office Visit Cardiology Cordell Juarez MD [address] [facility] [address] [place], [place] [address] (Arleen valdes) documented as of this encounter Visit Diagnoses Diagnosis Attention deficit disorder with hyperact ivity(314.01) Attention deficit disorder with hyperact ivity documented in this encounter
--- OUTSIDE RECORDS SUMMARY | 2022-04-10 10:33 | XMS_ITS | Encounter Summary ---
:2000 Author Organization [place] Address Count includes the [facility]0 [facility] [place] [place] [address] Care Team Providers Name Role Phone Unavailable Primary Care Provider Unavailable Encounter Details Date Type Department Care Team Description 05/15/2010 Results Only [facility] Petit MD Hospitalists Count includes the [facility] [place], [place] [address] (Wo rk) Social History Tobacco Use Types [...] Ancillary Procedure Cardiology Cordell Juarez MD [address] [place] [address] [address] (Wo rk) 07/27/2022 Office Visit Cardiology Cordell Juarez MD Count includes the [facility]0 [place] A [address] [address] (Wo rk) documented as of this encounter Procedures Procedure Name Priority Date/Time Associated Diagnosis Comme nts SEND OUTS MISC TEST Routine 05/15/2010 10:56 AM R esults for this PACKAGE CHECKER procedure are i n the results section. documented in this encounter Results Send outs misc test (05/15/2010 10:56 AM PACKAGE CHECKER) Analysis Performed At Patho logist Time Signature Lab Scanned SEND OUTS MISYS Result MISC TEST-Scann ed Specimen (Source) Anatomical Collection Method Collection Time Re ceived Time Location / / Volume Laterality 05/15/2010 10:56 AM PACKAGE CHECKER Rachelle Yoder MD LAB - BLOOD ORDERABLES Performing Organization Address City/State/ZIP Code Phon e Number MISYS documented in this encounter Visit Diagnoses Not on filedocumented in this encounter
--- OUTSIDE RECORDS SUMMARY | 2022-04-10 10:33 | XMS_ITS | Encounter Summary ---
:2000 Author Organization [place] Address [facility] [place] [address] Care Team Providers Name Role Phone Unavailable Primary Care Provider Unavailable Encounter Details Date Type Department Care Team Description 06/27/2010 Results Only INTERFACED REPORT Derrick Ngo MD [place] GASTRO[facility]OL O[facility] [address] [facility] [address] [place] [address] (Wo rk) Social History Tobacco [...] Ancillary Procedure Cardiology Cordell Juarez MD [facility] [place] [address] [address] (Wo rk) 07/27/2022 Office Visit Cardiology Cordell Juarez MD [address] [facility] [place], [place] [address] (Wo rk) documented as of this encounter Procedures Procedure Name Priority Date/Time Associated Comments Diagnosis MR LUMBAR SPINE W/O Routine 06/27/2010 2:57 PM Re sults for this CONTRAST CLINIC LPN procedure are i n the results section. COLONOSCOPY Routine 06/27/2010 1:11 PM Results f or this CLINIC LPN procedure are i n the results section. UPPER GI ENDOSCOPY Routine 06/27/2010 12:44 Resul ts for this PM CLINIC LPN procedure are i n the results section. documented in this encounter Results MRI Lumbar spine w/o contrast (06/27/2010 2:57 PM CLINIC LPN) Anatomical Region Laterality Modality Spine, SUBRAD MR MSK, UMP MR SPINE Other Specimen (Source) Anatomical Collection Method Collection Time Re ceived Time Location / / Volume Laterality 06/27/2010 2:57 PM CLINIC LPN Impressions 06/29/2010 10:55 AM CLINIC LPN Lumbar Spine MRI without contrast History: Spina [...] G MRI ORDERABLES COLONOSCOPY (06/27/2010 1:11 PM CLINIC LPN) Component Value Ref Test Analysis Performed At [facility] Method Time Signature COLONOSCOPY [facility] RADIOLOGY Endoscopy Department-[facility] RESULTS Patient Name: Jude Bills ? Procedure Date: 06/27/2010 01:11:27 PM ? Date of : 2000 ?Admit Type: Outpatient ? Age: 10 ? Room: OR ? Gender: Male ?Note Status: Finalized ? Attending MD: Dominga Ngo MD ? Procedure: ? Colonoscopy Indications: ? Hematochezia Providers: ? Dominga Ngo MD, Chitra Tadoe MD Referring : ? Medicines: ? General [...] / / Volume Laterality 06/27/2010 1:11 PM CLINIC LPN Dominga Ngo MD PROCEDURES Performing Organization Address City/State/ZIP Code Phon e Number RADIOLOGY RESULTS UPPER GI ENDOSCOPY (06/27/2010 12:44 PM CLINIC LPN) Component Value Ref Test Analysis Performed At [facility] Range Method Time Signature Upper GI [facility] RADIOLOGY Endoscopy Endoscopy Department-[facility] RESULTS Patient Name: Jude Bills ? Procedure [...] / / Volume Laterality 06/27/2010 12:44 PM CLINIC LPN Dominga Ngo MD PROCEDURES Performing Organization Address City/State/ZIP Code Phon e Number RADIOLOGY RESULTS documented in this encounter Visit Diagnoses Not on filedocumented in this encounter
--- OUTSIDE RECORDS SUMMARY | 2022-04-10 10:33 | XMS_ITS | Encounter Summary ---
:2000 Author Organization [place] Address [facility] [place] [address] Care Team Providers Name Role Phone Unavailable Primary Care Provider Unavailable Encounter Details Date Type Department Care Team Description 05/15/2010 Historic Results [facility]Camille Petit MD Hospitalists [facility] [place] [address] (Wo rk) Social History Tobacco [...] Ancillary Procedure Cardiology Cordell Juarez MD [address] [place] [address] [id number] (Wo rk) 07/27/2022 Office Visit Cardiology Cordell Juarez MD [facility] [place] A [address] [id number] (Wo rk) documented as of this encounter Procedures Procedure Name Priority Date/Time Associated Comments Diagnosis SEND OUTS MISC TEST Routine 05/15/2010 10:56 Resu lts for this AM HANDLE MACHINE OPERATOR procedure are i n the results section. VON WILLEBRAND Routine 05/15/2010 10:56 Results f or this MULTIMERS AM HANDLE MACHINE OPERATOR procedure are i n the results section. IGG Routine 05/15/2010 10:56 Results for this AM HANDLE MACHINE OPERATOR procedure are i n the results section. CBC WITH PLATELETS & Routine 05/15/2010 10:56 Res ults for this DIFFERENTIAL AM HANDLE MACHINE OPERATOR procedure are i n the results section. VON WILLEBRAND ANTIGEN Routine 05/15/2010 10:56 R esults for this AM HANDLE MACHINE OPERATOR procedure are i n the results section. THROMBIN TIME Routine 05/15/2010 10:56 Results fo r this AM HANDLE MACHINE OPERATOR procedure are i n the results section. RISTOCETIN COFACTOR Routine 05/15/2010 10:56 Resu lts for this AM HANDLE MACHINE OPERATOR procedure are i n the results section. RETICULOCYTE COUNT Routine 05/15/2010 10:56 Resul ts for this AM HANDLE MACHINE OPERATOR procedure are i n the results section. INR Routine 05/15/2010 10:56 Results for this AM HANDLE MACHINE OPERATOR procedure are i n the results section. PLATELET FUNCTION Routine 05/15/2010 10:56 Result s for this CLOSURE WITH REFLEX AM HANDLE MACHINE OPERATOR procedur e are in the results section. PLATELET FUNCTION Routine 05/15/2010 10:56 Result s for this CLOSURE ADP AM HANDLE MACHINE OPERATOR procedure are i n the results section. PARTIAL THROMBOPLASTIN Routine 05/15/2010 10:56 R esults for this TIME AM HANDLE MACHINE OPERATOR procedure are i n the results section. IRON AND IRON BINDING Routine 05/15/2010 10:56 Re sults for this CAPACITY AM HANDLE MACHINE OPERATOR procedure are i n the results section. FIBRINOGEN ACTIVITY Routine 05/15/2010 10:56 Resu lts for this AM HANDLE MACHINE OPERATOR procedure are i n the results section. FACTOR 9 ASSAY Routine 05/15/2010 10:56 Results f or this AM HANDLE MACHINE OPERATOR procedure are i n the results section. FACTOR 8 ASSAY Routine 05/15/2010 10:56 Results f or this AM HANDLE MACHINE OPERATOR procedure are i n the results section. FACTOR 7 ASSAY Routine 05/15/2010 10:56 Results f or this AM HANDLE MACHINE OPERATOR procedure are i n the results section. FACTOR 5 ASSAY Routine 05/15/2010 10:56 Results f or this AM HANDLE MACHINE OPERATOR procedure are i n the results section. FACTOR 2 ASSAY Routine 05/15/2010 10:56 Results f or this AM HANDLE MACHINE OPERATOR procedure are i n the results section. FACTOR 13 ANTIGEN Routine 05/15/2010 10:56 Result s for this AM HANDLE MACHINE OPERATOR procedure are i n the results section. FACTOR 10 ASSAY Routine 05/15/2010 10:56 Results for this AM HANDLE MACHINE OPERATOR procedure are i n the results section. CRP INFLAMMATION Routine 05/15/2010 10:56 Results for this AM HANDLE MACHINE OPERATOR procedure are i n the results section. COMPREHENSIVE METABOLIC Routine 05/15/2010 10:56 Results for this PANEL AM HANDLE MACHINE OPERATOR procedure are i n the results section. ANTITHROMBIN III Routine 05/15/2010 10:56 Results for this AM HANDLE MACHINE OPERATOR procedure are i n the results section. documented in this encounter Results (ABNORMAL) Factor 13 antigen (05/15/2010 10:56 AM HANDLE MACHINE OPERATOR) P athologist Signature FACTOR 13 AGN 47 [...] ??Ref: ??Thromb Haemost 2007;97:914. Babs Navarrete M.D. ??[phone] 05/23/2010, 13:49 Specimen Anatomical Collection Method Collection Time Receive d Time (Source) Location / / Volume Laterality 05/15/2010 10:56 05/15/2010 AM HANDLE MACHINE OPERATOR 11:01 AM HANDLE MACHINE OPERATOR Rachelle Yoder MD LAB - BLOOD ORDERABLES Performing Organization Address City/State/ZIP Code Phon e Number MISYS Antithrombin III (05/15/2010 10:56 AM HANDLE MACHINE OPERATOR) P athologist Signature Antithrombin III 115 80 - 120 % MISYS Chromogenic Specimen Anatomical Collection Method Collection Time Receive d Time (Source) Location / / Volume Laterality 05/15/2010 10:56 05/15/2010 AM HANDLE MACHINE OPERATOR 11:01 AM HANDLE MACHINE OPERATOR Rachelle Yoder MD LAB - BLOOD ORDERABLES Performing Organization Address City/State/ZIP Code Phon e Number MISYS CBC with platelets differential (05/15/2010 10:56 AM HANDLE MACHINE OPERATOR) Patholo gist Method Time Signature MCV 82 [...] / Volume Laterality 05/15/2010 10:56 05/15/2010 AM HANDLE MACHINE OPERATOR 11:01 AM HANDLE MACHINE OPERATOR Rachelle Yoder MD LAB - BLOOD ORDERABLES Performing Organization Address City/State/ZIP Code Phon e Number MISYS Comprehensive metabolic panel (05/15/2010 10:56 AM HANDLE MACHINE OPERATOR) athologist Signature Sodium 139 133 - 143 [...] / Volume Laterality 05/15/2010 10:56 05/15/2010 AM HANDLE MACHINE OPERATOR 11:01 AM HANDLE MACHINE OPERATOR Rachelle Yoder MD LAB - BLOOD ORDERABLES Performing Organization Address City/State/ZIP Code Phon e Number MISYS CRP inflammation (05/15/2010 10:56 AM HANDLE MACHINE OPERATOR) P athologist Signature CRP Inflammation <5.0 0.0 - 8.0 MISYS mg/L Specimen Anatomical Collection Method Collection Time Receive d Time (Source) Location / / Volume Laterality 05/15/2010 10:56 05/15/2010 AM HANDLE MACHINE OPERATOR 11:01 AM HANDLE MACHINE OPERATOR Rachelle Yoder MD LAB - BLOOD ORDERABLES Performing Organization Address City/State/ZIP Code Phon e Number MISYS Factor 10 assay (05/15/2010 10:56 AM HANDLE MACHINE OPERATOR) P athologist Signature Factor 10 Assay 70 60 - 140 % MISYS Specimen Anatomical Collection Method Collection Time Receive d Time (Source) Location / / Volume Laterality 05/15/2010 10:56 05/15/2010 AM HANDLE MACHINE OPERATOR 11:01 AM HANDLE MACHINE OPERATOR Rachelle Yoder MD LAB - BLOOD ORDERABLES Performing Organization Address City/State/ZIP Code Phon e Number MISYS Factor 2 assay (05/15/2010 10:56 AM HANDLE MACHINE OPERATOR) P athologist Signature Factor 2 Assay 89 60 - 140 % MISYS Specimen Anatomical Collection Method Collection Time Receive d Time (Source) Location / / Volume Laterality 05/15/2010 10:56 05/15/2010 AM HANDLE MACHINE OPERATOR 11:01 AM HANDLE MACHINE OPERATOR Rachelle Yoder MD LAB - BLOOD ORDERABLES Performing Organization Address City/State/ZIP Code Phon e Number MISYS Factor 5 assay (05/15/2010 10:56 AM HANDLE MACHINE OPERATOR) P athologist Signature Factor 5 Assay 106 60 - 140 % MISYS Specimen Anatomical Collection Method Collection Time Receive d Time (Source) Location / / Volume Laterality 05/15/2010 10:56 05/15/2010 AM HANDLE MACHINE OPERATOR 11:01 AM HANDLE MACHINE OPERATOR Rachelle Yoder MD LAB - BLOOD ORDERABLES Performing Organization Address City/State/ZIP Code Phon e Number MISYS Factor 7 assay (05/15/2010 10:56 AM HANDLE MACHINE OPERATOR) P athologist Signature Factor 7 Assay 68 60 - 140 % MISYS Specimen Anatomical Collection Method Collection Time Receive d Time (Source) Location / / Volume Laterality 05/15/2010 10:56 05/15/2010 AM HANDLE MACHINE OPERATOR 11:01 AM HANDLE MACHINE OPERATOR Rachelle Yoder MD LAB - BLOOD ORDERABLES Performing Organization Address City/[facility]/ZIP Code Phon e Number MISYS Factor 8 assay (05/15/2010 10:56 AM HANDLE MACHINE OPERATOR) P athologist Signature Factor 8 Assay 101 60 - 140 % MISYS Specimen Anatomical Collection Method Collection Time Receive d Time (Source) Location / / Volume Laterality 05/15/2010 10:56 05/15/2010 AM HANDLE MACHINE OPERATOR 11:01 AM HANDLE MACHINE OPERATOR Rachelle Yoder MD LAB - BLOOD ORDERABLES Performing Organization Address City/State/ZIP Code Phon e Number MISYS Factor 9 assay (05/15/2010 10:56 AM HANDLE MACHINE OPERATOR) P athologist Signature Factor 9 Assay 62 60 - 140 % MISYS Specimen Anatomical Collection Method Collection Time Receive d Time (Source) Location / / Volume Laterality 05/15/2010 10:56 05/15/2010 AM HANDLE MACHINE OPERATOR 11:01 AM HANDLE MACHINE OPERATOR Rachelle Yoder MD LAB - BLOOD ORDERABLES Performing Organization Address City/State/ZIP Code Phon e Number MISYS (ABNORMAL) Iron and iron binding capacity (05/15/2010 10:56 AM HANDLE MACHINE OPERATOR) P athologist Signature Iron 33 25 - 140 MISYS ug/dL Iron Binding Cap 359 240 - 430 MISYS ug/dL Iron Saturation 9 (L) 15 - 46 % MISYS Index Specimen Anatomical Collection Method Collection Time Receive d Time (Source) Location / / Volume Laterality 05/15/2010 10:56 05/15/2010 AM HANDLE MACHINE OPERATOR 11:01 AM HANDLE MACHINE OPERATOR Rachelle Yoder MD LAB - BLOOD ORDERABLES Performing Organization Address City/State/ZIP Code Phon e Number MISYS Fibrinogen activity (05/15/2010 10:56 AM HANDLE MACHINE OPERATOR) P athologist Signature Fibrinogen 291 200 - 420 MISYS mg/dL Specimen Anatomical Collection Method Collection Time Receive d Time (Source) Location / / Volume Laterality 05/15/2010 10:56 05/15/2010 AM HANDLE MACHINE OPERATOR 11:01 AM HANDLE MACHINE OPERATOR Rachelle Yoder MD LAB - BLOOD ORDERABLES Performing Organization Address City/State/ZIP Code Phon e Number MISYS IgG (05/15/2010 10:56 AM HANDLE MACHINE OPERATOR) P athologist Signature IGG 963 695 - 1620 MISYS mg/dL Specimen Anatomical Collection Method Collection Time Receive d Time (Source) Location / / Volume Laterality 05/15/2010 10:56 05/15/2010 AM HANDLE MACHINE OPERATOR 11:01 AM HANDLE MACHINE OPERATOR Rachelle Yoder MD LAB - BLOOD ORDERABLES Performing Organization Address City/[facility]/ZIP Code Phon e Number MISYS (ABNORMAL) Platelet function closure with reflex (05/15/2010 10:56 AM HANDLE MACHINE OPERATOR) P athologist Signature PLT Funct >300 (H) <185 sec MISYS COL/EPI Specimen Anatomical Collection Method Collection Time Receive d Time (Source) Location / / Volume Laterality 05/15/2010 10:56 05/15/2010 AM HANDLE MACHINE OPERATOR 11:02 AM HANDLE MACHINE OPERATOR Rachelle Yoder MD LAB - BLOOD ORDERABLES Performing Organization Address City/State/ZIP Code Phon e Number MISYS Platelet function closure ADP (05/15/2010 10:56 AM HANDLE MACHINE OPERATOR) P athologist Signature Platelet 101 <120 sec MISYS Function Closure Time Col/ADP Comment: Typical aspirin effect is characterized by prolonged Col/Epi and normal Col/ADP. Specimen Anatomical Collection Method Collection Time Receive d Time (Source) Location / / Volume Laterality 05/15/2010 10:56 05/15/2010 AM HANDLE MACHINE OPERATOR 11:02 AM HANDLE MACHINE OPERATOR Rachelle Yoder MD LAB - BLOOD ORDERABLES Performing Organization Address [facility] Phon e Number MISYS Reticulocyte count (05/15/2010 10:56 AM HANDLE MACHINE OPERATOR) [facility] gist Method Time Signature % Retic 1.1 0.5 - 2.0 MISYS % Absolute 52.9 25 - 95 MISYS Retic 10e9/L Retic Method Automated MISYS Method Specimen Anatomical Collection Method Collection Time Receive d Time (Source) Location / / Volume Laterality 05/15/2010 10:56 05/15/2010 AM HANDLE MACHINE OPERATOR 11:02 AM HANDLE MACHINE OPERATOR Rachelle Yoder MD LAB - BLOOD ORDERABLES Performing Organization Address [facility] Phon e Number MISYS Ristocetin cofactor (05/15/2010 10:56 AM HANDLE MACHINE OPERATOR) athologist Signature Ristocetin 74 50 - 175 [...] interpretation pending multimer analysis. Nu Srivastava M.D. ??[phone] . 05-16-2010, 13:21 See sendout Miscellaneous test for Garza Multimer report. ??See VWMULT test for final interpretation. Specimen Anatomical Collection Method Collection Time Receive d Time (Source) Location / / Volume Laterality 05/15/2010 10:56 05/15/2010 AM HANDLE MACHINE OPERATOR 11:02 AM HANDLE MACHINE OPERATOR Rachelle Yoder MD LAB - BLOOD ORDERABLES Performing Organization Address City/State/ZIP Code Phon e Number MISYS Thrombin time (05/15/2010 10:56 AM HANDLE MACHINE OPERATOR) P athologist Signature Thrombin Time 16.4 13.0 - 19.0 MISYS sec Specimen Anatomical Collection Method Collection Time Receive d Time (Source) Location / / Volume Laterality 05/15/2010 10:56 05/15/2010 AM HANDLE MACHINE OPERATOR 11:02 AM HANDLE MACHINE OPERATOR Rachelle Yoder MD LAB - BLOOD ORDERABLES Performing Organization Address City/State/ZIP Code Phon e Number MISYS Von Willebrand antigen (05/15/2010 10:56 AM HANDLE MACHINE OPERATOR) P athologist Signature von Willebrand 103 55 - 160 % MISYS Antigen Specimen Anatomical Collection Method Collection Time Receive d Time (Source) Location / / Volume Laterality 05/15/2010 10:56 05/15/2010 AM HANDLE MACHINE OPERATOR 11:02 AM HANDLE MACHINE OPERATOR Rachelle Yoder MD LAB - BLOOD ORDERABLES Performing Organization Address City/[facility]/ZIP Code Phon e Number MISYS Von Willebrand multimers (05/15/2010 10:56 AM HANDLE MACHINE OPERATOR) P athologist Signature Von Willebrand (Note) MISYS [...] multimers is normal (see report f rom [facility] [employer]). ??A diagnosis of von Will ebrand disease [...] to obtain baseline values. Nu Srivastava M.D. ??[phone] . 05/29/2010, 16:18 Specimen Anatomical Collection Method Collection Time Receive d Time (Source) Location / / Volume Laterality 05/15/2010 10:56 05/15/2010 AM HANDLE MACHINE OPERATOR 11:02 AM HANDLE MACHINE OPERATOR Rachelle Yoder MD LAB - BLOOD ORDERABLES Performing Organization Address [facility] Phon e Number MISYS INR (05/15/2010 10:56 AM HANDLE MACHINE OPERATOR) P athologist Signature INR 1.07 0.86 - 1.14 MISYS Specimen Anatomical Collection Method Collection Time Receive d Time (Source) Location / / Volume Laterality 05/15/2010 10:56 05/15/2010 AM HANDLE MACHINE OPERATOR 11:59 AM HANDLE MACHINE OPERATOR Rachelle Yoder MD LAB - BLOOD ORDERABLES Performing Organization Address [facility] Phon e Number MISYS (ABNORMAL) Partial thromboplastin time (05/15/2010 10:56 AM HANDLE MACHINE OPERATOR) P athologist Signature PTT 38 (H) 22 - 37 sec MISYS Specimen Anatomical Collection Method Collection Time Receive d Time (Source) Location / / Volume Laterality 05/15/2010 10:56 05/15/2010 AM HANDLE MACHINE OPERATOR 11:59 AM HANDLE MACHINE OPERATOR Rachelle Yoder MD LAB - BLOOD ORDERABLES Performing Organization Address [facility] Phon e Number MISYS Send outs misc test (05/15/2010 10:56 AM HANDLE MACHINE OPERATOR) Patholo gist Method Time Signature Test Name VW MULTIMERS MISYS Send Outs CITRATED MISYS Misc Test PLASMA Specimen Normal Range SEE REPORT MISYS for Send Outs Misc Test Lab Scanned Laboratory MISYS Result Scanned Result [id number] Specimen Anatomical Collection Method Collection Time Receive d Time (Source) Location / / Volume Laterality 05/15/2010 10:56 05/16/2010 4:49 AM HANDLE MACHINE OPERATOR PM HANDLE MACHINE OPERATOR Rachelle Yoder MD LAB - BLOOD ORDERABLES Performing Organization Address [facility] Phon e Number MISYS documented in this encounter Visit Diagnoses Not on filedocumented in this encounter
--- OUTSIDE RECORDS SUMMARY | 2022-04-10 10:33 | XMS_ITS | Encounter Summary ---
:2000 Author Organization [place] Address [address] [facility] [place] [address] Care Team Providers Name Role Phone Unavailable Primary Care Provider Unavailable Encounter Details Date Type Department Care Team Description 05/15/2010 Office Visit-[facility] INTERFACE [facility] DEPT Provider, [facility] Nurs e Social History Tobacco Use Types Packs/Day Years Used Date Smoking Tobacco: Never Comments: none at home Alcohol Use Standard Drinks/Week Comments Not Asked 0 (1 standard drink = 0.6 oz pure alcoho l) Sex Assigned at Date Recorded Male 03/09/2019 1:21 PM CDT documented as of this encounter Progress Notes Provider, [facility] Nurse - 05/15/2010 9:00 AM CST Hair Dryer: Kaitlyn Kong Status: Signed Encounter: 15 May 2010 Type: Chart Note Jude's mother called to ask for the results from his appointment with Dr. Yoder on May 15. I send to message to Dr. Yoder by phone and email and asked her to contact her when she has all of his results. Electronically signed by:Kaitlyn Kong May 18 2010 10:04AM CERAMIC MOLD DESIGNER Author documented in this encounter Plan of Treatment Upcoming Encounters Date Type Specialty Care Team Description 07/27/2022 Ancillary Procedure Cardiology Larry, Cordell Barajas MD [address] [facility] [address] [place] [address] (Wo rk) 07/27/2022 Office Visit Cardiology Larry, Cordell skelton MD [address] [place] [address] (Wo rk) documented as of this encounter Visit Diagnoses Not on filedocumented in this encounter
--- OUTSIDE RECORDS SUMMARY | 2022-04-10 10:33 | XMS_ITS | Encounter Summary ---
:2000 Author Organization [place] Address [address] [place] [address] Care Team Providers Name Role Phone Unavailable Primary Care Provider Unavailable Reason for Visit Reason Onset Date Comments Refill Request 06/15/2010 Focalin XR Encounter Details Date Type Department Care Team Description 06/15/2010 MyC Refill [facility] Ignacio Solo Refi ll Request Clinic [facility]UPREE (Focalin XR) [address] [place] [address] [phone] (Wo rk) Social History Tobacco Use Types [...] left her a voicemail. Placed prescription at front end specialist for bead picker. Christa Blackman CMA WATCHMAN Telephone Encounter - Tory Mann - 06/15/2010 4:21 PM CST Rx authorized, please call. WATCHMAN Telephone Encounter - Nu Zimmerman - 06/15/2010 4:17 PM CST Last o/v 05/10/10. Please call mom's cell when rx is ready for p/u. Nu Zimmerman RN WATCHMAN Telephone Encounter - Nu Zimmerman - 06/15/2010 4:14 PM FIRE WATCHMAN Message from [facility]: Jude Bills would like a refill of the following medications: dexmethylphenidate (FOCALIN XR) 10 MG 24 hr capsule [Ignacio Solo] Preferred pharmacy: call when script is ready to bead picker Comment: This message is being sent by Jaimie Bills on behalf of Jude Trimble call my cell when script is ready: [phone] WATCHMAN documented in this encounter Plan of Treatment Upcoming Encounters Date Type Specialty Care Team Description 07/27/2022 Ancillary Procedure Cardiology Cordell Juarez MD [address] [place], [place] [phone] (Wo rk) 07/27/2022 Office Visit Cardiology Cordell Juarez MD [address] [place], [place] [address] (Wo rk) documented as of this encounter Visit Diagnoses Diagnosis Attention deficit disorder with hyperact ivity(314.01) - Primary Attention deficit disorder with hyperact ivity documented in this encounter
--- OUTSIDE RECORDS SUMMARY | 2022-04-10 10:34 | XMS_ITS | Encounter Summary ---
:2000 Author Organization [place] Address [address] [place] [address] Care Team Providers Name Role Phone Unavailable [...] Ancillary Procedure Cardiology Cordell Juarez MD [address] [place] [address] (Wo rk) 07/27/2022 Office Visit Cardiology Cordell Juarez MD [address] [place] [phone] (Wo rk) documented as of this encounter Procedures Procedure Name Priority Date/Time Associated Diagnosis Comme nts EKG 12 LEAD Routine 08/10/2009 11:24 AM Results for this FOOD SELECTOR procedure are i n the results section . documented in this encounter Results EKG 12 LEAD (08/10/2009 11:24 AM FOOD SELECTOR) Component Value Ref Range Test Analysis Performed Pathologis t Method Time At Signature Ventricular Rate 81 BPM RADIOLOGY RESULTS Atrial Rate 81 BPM RADIOLOGY RESULTS WV Interval 120 ms RADIOLOGY RESULTS QRS Duration 82 ms RADIOLOGY RESULTS QT 348 ms RADIOLOGY RESULTS QTc 404 ms RADIOLOGY RESULTS P [place] 93 degrees RADIOLOGY RESULTS R AXIS -79 degrees RADIOLOGY RESULTS T [place] 68 degrees RADIOLOGY RESULTS Interpretation * Pediatric ECG Analysis * RADIOLOGY ECG Low atrial rhythm RESULTS Left axis deviation Right ventricular hypertrophy with strain pattern Specimen Anatomical Collection Method Collection Time Receive d Time (Source) Location / / Volume Laterality 08/10/2009 11:24 09/08/2009 4:18 AM FOOD SELECTOR PM CDT Transcripton Interface ECG ORDERABLES Performing Organization Address City/State/ZIP Code Phon e Number RADIOLOGY RESULTS documented in this encounter Visit Diagnoses Not on filedocumented in this encounter
--- OUTSIDE RECORDS SUMMARY | 2022-04-10 10:34 | XMS_ITS | Encounter Summary ---
:2000 Author Organization [place] Address [address] [place] [address] Care Team Providers Name Role Phone Unavailable Primary Care Provider Unavailable Reason for Visit Reason Comments Recheck Medication Encounter Details Date Type Department Care Team Description 06/15/2009 Office Visit [facility] Ignacio Solo, Need for Prophylactic Vaccination and Inoculation Against Influenza (Primary Dx); Clinic Meir DUPREE Attention Deficit Disorder with Hyperact ivity [address] [place] [address] [phone] Social History Tobacco Use Types Packs/Day Years [...] Comments Blood Pressure 108/64 06/15/2009 4:21 PM DYE HOUSE HAND Pulse - - Temperature - - Respiratory Rate - - Oxygen Saturation - - Inhaled Oxygen Concentration - - Weight 25.2 kg (55 lb 8 oz) 06/15/2009 4:21 PM DYE HOUSE HAND Height 125.7 cm (4' 1.5) 06/15/2009 4:21 PM DYE HOUSE HAND Body Mass Index 15.93 06/15/2009 4:21 PM DYE HOUSE HAND Body Mass Index Percentile 41.45 % 06/15/2009 4:21 PM CS T Growth Chart: [facility] (Boys, 2-20 Years) documented in this [...] Fortino now with Fenestrated Fontan Done at [place] ??? INTESTINAL FIXATION ANOM s/p Comins procedure 03/2006 ??? ESOPHAGEAL REFLUX ??? ANOMALIES [...] Regular cardiology f/u Follow-up: Within 6 months HOUSE HAND documented in this encounter Nursing Notes 06/15/2009 4:15 PM CST >> CHERI JURADO SatJun 15, 2009 4:38 PM Jude Bills 1. Has the patient received the information for the influenza vaccine? YES 2. Does the patient have any of the following contraindications? Allergy to eggs? No Allergic reaction to previous influenza vaccines? No Any other problems to previous influenza vaccines? No Paralyzed by Guillain-Eldred syndrome? No Currently ? NO Current moderate [...] Procedure Cardiology Larry, Cordell Jenn, MD [address] [facility] [address] [place], [place] [phone] (Wo rk) 07/27/2022 Office Visit Cardiology Cordell Juarez MD [address] [place], [place] [address] (Wo rk) documented as of this encounter Visit Diagnoses Diagnosis Need for prophylactic vaccination and in oculation against influenza - Primary Attention deficit disorder with hyperact ivity(314.01) Attention deficit disorder with hyperact ivity documented in this encounter
--- OUTSIDE RECORDS SUMMARY | 2022-04-10 10:34 | XMS_ITS | Encounter Summary ---
:2000 Author Organization [place] Address [address] [place] [address] Care Team Providers Name Role Phone Unavailable Primary Care Provider Unavailable Encounter Details Date Type Department Care Team Description 04/11/2009 [facility] Health/Nurse Visit Clinic [place] (Primary Dx) [address] [place] [address] Social History Tobacco Use Types [...] Procedure Cardiology Cordell Juarez MD [facility]0 [facility] [place], [place] [address] (Arleen valdes) 07/27/2022 Office Visit Cardiology Cordell Juarez MD [address] [facility] [address] [place], [place] [address]234 (Arleen valdes) documented as of this encounter Visit Diagnoses Diagnosis Preventative health care - Primary Routine general medical examination at a health care facility documented in this encounter
--- OUTSIDE RECORDS SUMMARY | 2022-04-10 10:34 | XMS_ITS | Encounter Summary ---
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 Nu Zimmerman RN documented in this encounter Plan of Treatment Upcoming Encounters Date Type Specialty Care Team Description 07/27/2022 Ancillary Procedure Cardiology Cordell Juarez MD [address] [facility] [place], [place] [address] (Wo rk) 07/27/2022 Office Visit Cardiology Cordell Juarez MD [address] [place] [facility] [place], [place] [address] (Wo rk) documented as of this encounter Visit Diagnoses Diagnosis Attention deficit disorder with hyperact ivity(314.01) - Primary Attention deficit disorder with hyperact ivity documented in this encounter
--- OUTSIDE RECORDS SUMMARY | 2022-04-10 10:34 | XMS_ITS | Encounter Summary ---
:2000 Author Organization [place] Address [address] [place] [address] Care Team Providers Name Role Phone Unavailable Primary Care Provider Unavailable Encounter Details Date Type Department Care Team Description 03/14/2010 Orders Only [facility] Blood Stool Laboratory [address] [place] [address] Social History Tobacco Use [...] Procedure Cardiology Cordell Juarez MD [facility] [address] [place], [place] [address] (Wo rk) 07/27/2022 Office Visit Cardiology Cordell Juarez MD [address] [place], [place] [address] (Arleen rk) documented as of this encounter Procedures Procedure Name Priority Date/Time Associated Comments Diagnosis ZZCL FECAL Routine 03/14/2010 7:00 AM Blood Stool Results f or this COLORECTAL CANCER CDT procedure are in [facility] the results section. documented in this encounter Results STOOL TEST BLOOD (03/14/2010 7:00 AM CDT) Analysis Performed At Patho logist Time Signature Occult Blood Negative NEG [facility] Scn FIT [facility] Specimen Anatomical Collection Method Collection Time Receive d Time (Source) Location / / Volume Laterality 03/14/2010 7:00 AM 0 8:44 CDT AM CDT Randy Hernandez MD LABORATORY Performing Organization Address City/State/ZIP Code Phon e Number [facility] [address] [place] [address] [facility] documented in this encounter Visit Diagnoses Diagnosis Blood stool Blood in stool documented in this encounter
--- OUTSIDE RECORDS SUMMARY | 2022-04-10 10:34 | XMS_ITS | Encounter Summary ---
:2000 Author Organization [place] Address [facility] [place] [address] Care Team Providers Name Role Phone Unavailable Primary Care Provider Unavailable Reason for Visit Reason Onset Date Comments Refill Request 05/11/2009 Focalin XR 10 mg. Encounter Details Date Type Department Care Team Description 05/11/[address] [facility] Ignacio Solo MD Refill Request (Focalin Clinic [place] [address] XR 10 mg. ) [address] [place] [address] [place], [place] [phone] (Wo rk) [address] [phone] Social History Tobacco Use Types Packs/Day Years [...] Mom notified of need for f/u appt IALTY TRANSFORMER ASSEMBLER Telephone Encounter - Ignacio Solo - 05/11/2009 2:41 PM CST Rx done. Advise to f/u before next refill request IALTY TRANSFORMER ASSEMBLER Telephone Encounter - Yessi Hernandez - 05/11/2009 1:30 PM CST Mom requests refill, current dose is working well. Mom would like to oyster picker rx today. Last o.v. 7.2.09. IALTY TRANSFORMER ASSEMBLER documented in this encounter Plan of Treatment Upcoming Encounters Date Type Specialty Care Team Description 07/27/2022 Ancillary Procedure Cardiology Cordell Juarez MD [address] [place] [place] [address] [place] [address] (Wo rk) 07/27/2022 Office Visit Cardiology Cordell Juarez MD [address] [place] [place] [address] [place] [address] (Wo rk) documented as of this encounter Visit Diagnoses Diagnosis Attention deficit disorder with hyperact ivity(314.01) Attention deficit disorder with hyperact ivity documented in this encounter
--- OUTSIDE RECORDS SUMMARY | 2022-04-10 10:34 | XMS_ITS | Encounter Summary ---
:2000 Author Organization [place] Address [address] [place] [address] Care Team Providers Name Role Phone Unavailable Primary Care Provider Unavailable Reason for Visit Reason Onset Date Comments Refill Request 02/13/2010 Encounter Details Date Type Department Care Team Description 02/13/2010 MyC Refill [facility] Ignacio Solo MD Refill Request [place] [address] [facility] [address] [place] [address] [place] [address] [phone] Social History Tobacco Use Types Packs/Day Years [...] PM CDT 02/13/10 Called mom, she will lease picker form today before 8 pm. 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 Telephone Encounter - Yessi Hernandez - 02/13/2010 9:08 AM CDT Message from [employer]: Jude Bills would like a refill of the following medications: FOCALIN XR 10 MG PO CP24 [Ignacio Gauravjuan Edil] Preferred pharmacy: Please let us know when the script is ready Comment: This message is being sent by Jaimie Bills on behalf of Jude Santos also sent a message regarding this medication. Please call [phone] Aldo Etienne (Mom) when the prescription is ready to lease picker. Thank you. documented in this encounter Plan of Treatment Upcoming Encounters Date Type Specialty Care Team Description 07/27/2022 Ancillary Procedure Cardiology Cordell Juarez MD [address] [place] [address] (Wo rk) 07/27/2022 Office Visit Cardiology Cordell Juarez MD [address] [facility] [address] [place], [place] [address] (Wo rk) documented as of this encounter Visit Diagnoses Diagnosis Attention deficit disorder with hyperact ivity(314.01) Attention deficit disorder with hyperact ivity documented in this encounter
--- OUTSIDE RECORDS SUMMARY | 2022-04-10 10:34 | XMS_ITS | Encounter Summary ---
:2000 Author Organization [place] Address [address] [place] [address] Care Team Providers Name Role Phone Unavailable Primary Care Provider Unavailable Encounter Details Date Type Department Care Team Description 04/12/2009 E-Visit [facility] Ignacio Solo, HYPO PLASTIC LEFT HEART SYND; Clinic [place] Exposure to Influenza [address] [place], [place] [phone] Social History Tobacco Use Types Packs/Day Years [...] Ancillary Procedure Cardiology Cordell Juarez MD [address] [place] [address] (Wo rk) 07/27/2022 Office Visit Cardiology Cordell Juarez MD [address] [place], [place] [address] (Wo rk) documented as of this encounter Visit Diagnoses Diagnosis 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
--- OUTSIDE RECORDS SUMMARY | 2022-04-10 10:34 | XMS_ITS | Encounter Summary ---
:2000 Author Organization [place] Address [facility] [place] [address] Care Team Providers Name Role Phone Unavailable Primary Care Provider Unavailable Reason for Visit Reason Onset Date Comments Patient Request 03/10/2010 overbook request Encounter Details Date Type Department Care Team Description 03/10/2010 Telephone [facility] Ignacio Solo Pati ent Request Clinic [place] (overbook request) [address] [place], [place] [phone] Social History Tobacco Use Types Packs/Day Years [...] 07/27/2022 Ancillary Procedure Cardiology Cordell Juarez MD [address] [place], [place] [address] (Wo rk) 07/27/2022 Office Visit Cardiology Cordell Juarez MD [address] [place], [place] [address] (Wo rk) documented as of this encounter Visit Diagnoses Not on filedocumented in this encounter
--- OUTSIDE RECORDS SUMMARY | 2022-04-10 10:34 | XMS_ITS | Encounter Summary ---
:2000 Author Organization [place] Address [address] [place] [address] Care Team Providers Name Role Phone Unavailable Primary Care Provider Unavailable Reason for Visit Reason Onset Date Comments Refill Request 10/24/2009 Focalin XR Encounter Details Date Type Department Care Team Description 10/24/2009 MyC Refill [facility] Ignacio López Refi ll Request Clinic [place] (Focalin XR) [address] [place] [address] [phone] (Wo rk) Social History Tobacco Use Types [...] - 10/25/2009 8:24 AM CDT [facility] Jude Bills would like a refill of the following medications: FOCALIN XR 10 MG OR CP24 [IGNACIO LÓPEZ] Preferred pharmacy: [facility] Comment: This message is being sent by Jaimie Bills on behalf of Jude Josephase Call Jaimie - Mom [phone] when the prescription is ready. Needed by at the latest. documented in this encounter Plan of Treatment Upcoming Encounters Date Type Specialty Care Team Description 07/27/2022 Ancillary Procedure Cardiology Cordell Juarez MD [address] [facility] [address] [place] [address] (Wo rk) 07/27/2022 Office Visit Cardiology Cordell Juarez MD [address] [facility] [address] [place] [address] (Wo rk) documented as of this encounter Visit Diagnoses Diagnosis Attention deficit disorder with hyperact ivity(314.01) Attention deficit disorder with hyperact ivity documented in this encounter
--- OUTSIDE RECORDS SUMMARY | 2022-04-10 10:34 | XMS_ITS | Encounter Summary ---
:2000 Author Organization [place] Address [facility] [place] [address] Care Team Providers Name Role Phone Unavailable Primary Care Provider Unavailable Reason for Visit Reason Onset Date Comments Refill Request 12/28/2009 focalin Encounter Details Date Type Department Care Team Description 12/28/2009 Refill [facility] Ignacio Solo MD Refill Request Clinic [place] [address] (focalin) [address] [place] [address] [place], [place] [phone] (Wo rk) [address] [phone] Social History Tobacco Use Types Packs/Day Years [...] Cordell Juarez MD [address] [place], [place] [address] (Wo rk) 07/27/2022 Office Visit Cardiology Cordell Juarez MD [address] [place], [place] [address] (Wo rk) documented as of this encounter Visit Diagnoses Diagnosis Attention deficit disorder with hyperact ivity(314.01) - Primary Attention deficit disorder with hyperact ivity documented in this encounter
--- OUTSIDE RECORDS SUMMARY | 2022-04-10 10:34 | XMS_ITS | Encounter Summary ---
:2000 Author Organization [place] Address [facility] [place] [address] Care Team Providers Name Role Phone Unavailable Primary Care Provider Unavailable Reason for Visit Reason Onset Date Comments Refill Request 07/18/2009 Focalin 10 mg. Encounter Details Date Type Department Care Team Description 07/18/2009 Refill [facility] Ignacio Solo MD Refill Request (Focalin Clinic [place] [address] 10 mg. ) [address] [place] [address] [place], [place] [phone] (Wo rk) [address] [phone] Social History Tobacco Use Types Packs/Day Years Used Date Smoking Tobacco: Never Comments: none at home Alcohol Use Standard Drinks/Week Comments Not Asked 0 (1 standard drink = 0.6 oz pure alcoho l) Sex Assigned at Date Recorded Male 03/09/2019 1:21 PM CDT documented as of this encounter Miscellaneous Notes Telephone Encounter - Cheri Jurado - 07/18/2009 1:56 PM CST Rx palced at desk. Mom notified G RIDE OPERATOR Telephone Encounter - Ignacio Solo - 07/18/2009 1:50 PM CST Rx done G RIDE OPERATOR Telephone Encounter - Yessi Hernandez - 07/18/2009 1:40 PM CST Mom left note with front end alignment specialist asking for a refill. Last o.v. 06.15.09. G RIDE OPERATOR documented in this encounter Plan of Treatment Upcoming Encounters Date Type Specialty Care Team Description 07/27/2022 Ancillary Procedure Cardiology Cordell Juarez MD [address] [place] [address] [place], [place] [address] (Wo rk) 07/27/2022 Office Visit Cardiology Cordell Juarez MD [address] [place] [place] [address] (Wo rk) documented as of this encounter Visit Diagnoses Diagnosis Attention deficit disorder with hyperact ivity(314.01) Attention deficit disorder with hyperact ivity documented in this encounter
--- OUTSIDE RECORDS SUMMARY | 2022-04-10 10:34 | XMS_ITS | Encounter Summary ---
:2000 Author Organization [place] Address [address] [place] [address] Care Team Providers Name Role Phone Unavailable Primary Care Provider Unavailable Encounter Details Date Type Department Care Team Description 12/25/2009 Emergency room [facility] Kobi Simms, Hospital Results MD EMERGENCY PHYSIC [facility] [place] [address] [place], [place] [address] (Wo rk) Social History [...] PLAN: Ice to the forehead, followup with substitute crossing guard, Tylenol and/or ibuprofen p.r.n. pain. DISCHARGE DIAGNOSES: 1. Right forehead hematoma. 2. Status post closed head injury. Electronically signed on 02/23/2010 07:58 by KOBI SIMMS MD MT: [id number] Name: PIERRE BILLS MRN: [id number] Account: [id number] : 2000 Visit Date: 12/25/2009 Document: [id number] documented in this encounter Plan of Treatment Upcoming Encounters Date Type Specialty Care Team Description 07/27/2022 Ancillary Procedure Cardiology Cordell Juarez MD [address] [facility] [address] [place], [place] [address] (Wo rk) 07/27/2022 Office Visit Cardiology Cordell Juarez MD [address] [facility] [place] [address] (Wo rk) documented as of this encounter Visit Diagnoses Not on filedocumented in this encounter
--- OUTSIDE RECORDS SUMMARY | 2022-04-10 10:34 | XMS_ITS | Encounter Summary ---
:2000 Author Organization [place] Address [address] [place] [address] Care Team Providers Name Role Phone Unavailable [...] Ancillary Procedure Cardiology Cordell Juarez MD [address] [place] [address] (Wo rk) 07/27/2022 Office Visit Cardiology Cordell Juarez MD [address] [place] [place] [address] (Wo rk) documented as of this encounter Procedures Procedure Name Priority Date/Time Associated Diagnosis Comme nts EKG 12 LEAD Routine 08/10/2009 11:24 AM Results for this AIRPLANE PILOT CHIEF procedure are i n the results section . documented in this encounter Results EKG 12 LEAD (08/10/2009 11:24 AM AIRPLANE PILOT CHIEF) Component Value Ref Range Test Analysis Performed Pathologis t Method Time At Signature Ventricular Rate 81 BPM RADIOLOGY RESULTS Atrial Rate 81 BPM RADIOLOGY RESULTS SD Interval 120 ms RADIOLOGY RESULTS QRS Duration 82 ms RADIOLOGY RESULTS QT 348 ms RADIOLOGY RESULTS QTc 404 ms RADIOLOGY RESULTS P [place] 93 degrees RADIOLOGY RESULTS R AXIS -79 degrees RADIOLOGY RESULTS T [place] 68 degrees RADIOLOGY RESULTS Interpretation * Pediatric ECG Analysis * RADIOLOGY ECG Low atrial rhythm RESULTS Left axis deviation Right ventricular hypertrophy with strain pattern Specimen Anatomical Collection Method Collection Time Receive d Time (Source) Location / / Volume Laterality 08/10/2009 11:24 09/08/2009 4:19 AM AIRPLANE PILOT CHIEF PM CDT Transcripton Interface ECG ORDERABLES Performing Organization Address City/State/ZIP Code Phon e Number RADIOLOGY RESULTS documented in this encounter Visit Diagnoses Not on filedocumented in this encounter
--- OUTSIDE RECORDS SUMMARY | 2022-04-10 10:34 | XMS_ITS | Encounter Summary ---
:2000 Author Organization [place] Address [address] [place] [address] Care Team Providers Name Role Phone Unavailable Primary Care Provider Unavailable Encounter Details Date Type Department Care Team Description 08/10/2009 Office Visit-[facility] INTERFACE [facility] DEPT Provider, [facility] Nurs e Social History Tobacco Use Types Packs/Day Years Used Date Smoking Tobacco: Never Comments: none at home Alcohol Use Standard Drinks/Week Comments Not Asked 0 (1 standard drink = 0.6 oz pure alcoho l) Sex Assigned at Date Recorded Male 03/09/2019 1:21 PM CDT documented as of this encounter Progress Notes Provider, [facility] Nurse - 08/10/2009 11:00 AM CST Industrial Methods Consultant: Delicia Izaguirre Status: Final Encounter: 10 Aug 2009 Type: Rooming Note Informant Parent is informant unless otherwise noted. Reason For Visit [f/u for heart check ] Do you have any other appointments, tests or procedures within the [facility] system for this same day? No. Pain [...] By: Delicia Izaguirre RN; 08/10/2009 10:57 AM PETROLEUM INSPECTOR SUPERVISOR. documented in this encounter Plan of Treatment Upcoming Encounters Date Type Specialty Care Team Description 07/27/2022 Ancillary Procedure Cardiology Cordell Juarez MD [address] [facility] [address] [place] [address] (Arleen valdes) 07/27/2022 Office Visit Cardiology Cordell Juarez MD [address] [facility] [address] [address] [place] [address] (Arleen valdes) documented as of this encounter Visit Diagnoses Not on filedocumented in this encounter
--- OUTSIDE RECORDS SUMMARY | 2022-04-10 10:34 | XMS_ITS | Encounter Summary ---
:2000 Author Organization [place] Address [address] [place] [address] Care Team Providers Name Role Phone Unavailable Primary Care Provider Unavailable Reason for Visit Reason Onset Date Comments Refill Request 11/28/2009 Encounter Details Date Type Department Care Team Description 11/28/2009 [facility] MD Refill Request [place] [address] [facility] [address] [place] [address] [place] [address] [phone] Social History Tobacco Use Types Packs/Day Years [...] MG PO CP24 [IGNACIO LÓPEZ] Preferred pharmacy: [facility] Comment: This message is being sent by Jaimie Bills on behalf of Jude Cho Melania needs refills on his cardiac meds. 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 documented in this encounter Plan of Treatment Upcoming Encounters Date Type Specialty Care Team Description 07/27/2022 Ancillary Procedure Cardiology Cordell Juarez MD 24[address] [facility] [address] [place] [address] (Wo rk) 07/27/2022 Office Visit Cardiology Cordell Juarez MD [address] [facility] [address] [place] [address] (Wo rk) documented as of this encounter Visit Diagnoses Diagnosis Attention deficit disorder with hyperact ivity(314.01) - Primary Attention deficit disorder with hyperact ivity documented in this encounter
--- OUTSIDE RECORDS SUMMARY | 2022-04-10 10:34 | XMS_ITS | Encounter Summary ---
:2000 Author Organization [place] Address Critical access hospital0 [facility] [place] [address] Care Team Providers Name Role Phone Unavailable Primary Care Provider Unavailable Reason for Visit Reason Comments Abdominal Pain Patient here has been compla ining of stomach pain for the last 4-5 days. Red and black noticed in stool on Saturday, has had some blood as well, was seen in [facility] for this. Looked like he was close to bowel obstruction, but not obstructed. Still hasn't passed much stool. Encounter Details Date Type Department Care Team Description 03/10/2010 Office Visit [facility] Randy Hernandez, Blo od Stool (Primary [facility] [place] [facility]) [address] [place] [phone] (Wo rk) Social History [...] some blood as well, was seen in [facility] for this. Looked like he was close [...] Cordell Juarez MD [address] [facility] [address] [place], [place] [phone] (Wo rk) 07/27/2022 Office Visit Cardiology Cordell Juarez MD [address] [place], [place] [phone] (Wo rk) documented as of this encounter [...] athologist Signature Sodium 140 133 - 143 [place] mmol/L [facility] Potassium 4.1 3.4 - 5.3 [place] mmol/L [facility] Chloride 102 98 - 110 [place] mmol/L [facility] Carbon Dioxide 24 20 - 32 [place] mmol/L [facility] Anion Gap 14 6 - 17 [place] mmol/L [facility] Glucose 91 60 - 99 [place] mg/dL [facility] Urea Nitrogen 14 5 - 24 [place] mg/dL [facility] Creatinine 0.49 0.39 - [place] 0.73 mg/dL [facility] Comment: New IDMS-traceable calibration beginning 10/16/07 GFR Estimate GFR not calculated, mL/min/1.7m2 [facility] patient <16 years old. [facility]ITA [facility] GFR Estimate If Black GFR not calculated, mL/min/1.7m2 [facility] patient <16 years old. [facility] Calcium 9.9 8.7 - 10.8 mg/dL [facility] Bilirubin Total 0.3 0.2 - 1.3 mg/dL [facility] Albumin 4.6 3.9 - 5.1 g/dL [facility] Protein Total 8.0 6.8 - 8.8 g/dL [facility] Alkaline Phosphatase 312 130 - 530 U/L [facility] ALT 24 0 - 50 U/L [facility] AST 40 0 - 50 U/L [facility] Specimen Anatomical Collection Method Collection Time Receive d Time (Source) Location / / Volume Laterality 03/10/2010 10:25 03/10/2010 AM CDT 10:30 AM CDT Randy Hernandez MD LABORATORY Performing Organization Address City/State/ZIP Code Phon e Number [facility] [address] [place], [place] [address] [facility] SED RATE, AUTO (03/10/2010 10:25 AM CDT) P athologist Signature Sed Rate 9 0 - 15 mm/h [facility] Specimen Anatomical Collection Method Collection Time Receive d Time (Source) Location / / Volume Laterality 03/10/2010 10:25 03/10/2010 AM CDT 10:30 AM CDT Randy Hernandez MD LABORATORY Performing Organization Address City/State/ZIP Code Phon e Number [facility] [address] [place], [place] [address] [address] [facility] CBC WITH PLATELETS, DIFF (03/10/2010 10:25 AM CDT) Patholo gist Method Time Signature WBC 4.9 4.0 - [place] 11.0 [facility] 10e9/L CLINIC LAB RBC Count 4.88 3.7 - 5.3 [place] 10e12/L [facility] Hemoglobin 13.4 11.7 - [facility] 15.7 g/dL [facility] Hematocrit 39.6 35.0 - [facility] 47.0 % [facility] MCV 81 77 - 100 [facility] MCH 27.5 26.5 - [facility] 33.0 pg [facility] MCHC 33.8 31.5 - [facility] 36.5 g/dL [facility] RDW 13.1 10.0 - [facility] 15.0 % [facility] Platelet Count 308 150 - 450 [place] 10e9/L [facility] Diff Method Automated [facility] % Neutrophils 53 32 - 64 % [facility] % Lymphocytes 32 26 - 50 % [facility] % Monocytes 12 0 - 12 % [facility] % Eosinophils 3 0 - 6 % [facility] % Basophils 0 0 - 2 % [facility] Absolute 2.6 1.3 - 7.0 [place] Neutrophil 10e9/L [facility] Absolute 1.6 1.0 - 5.8 [place] Lymphocytes 10e9/L [facility] Absolute 0.6 0.0 - 1.3 [place] Monocytes 10e9/L [facility] Absolute 0.1 0.0 - 0.7 [place] Eosinophils 10e9/L [facility] Absolute 0.0 0.0 - 0.2 [place] Basophils 10e9/L [facility] Specimen Anatomical Collection Method Collection Time Receive d Time (Source) Location / / Volume Laterality 03/10/2010 10:25 03/10/2010 AM CDT 10:30 AM CDT Randy Hernandez MD LABORATORY Performing Organization Address City/State/ZIP Code Phon e Number [facility] [address], [place] [address] [address] [facility] documented in this encounter Visit Diagnoses Diagnosis Blood stool - Primary Blood in stool documented in this encounter
--- OUTSIDE RECORDS SUMMARY | 2022-04-10 10:34 | XMS_ITS | Encounter Summary ---
:2000 Author Organization [place] Address [facility] [place] [address] Care Team Providers Name Role Phone Unavailable Primary Care Provider Unavailable Reason for Visit Reason Onset Date Comments Refill Request 08/18/2009 Focalin XR Encounter Details Date Type Department Care Team Description 08/18/[address] [facility] Ignacio Solo MD Refill Request (Focalin Clinic [place] [address] XR) [address] [place] [address] [place], [place] [phone] (Wo rk) [address] [phone] Social History Tobacco Use Types Packs/Day Years [...] Left message for mom letting her know TOLOGICAL TECHNICIAN Telephone Encounter - Nu Zimmerman - 08/18/2009 1:18 PM CST Mom calling for RF of Focalin XR. Last o/v 06/15/09. Current dose is working well. Please call mom when rx is ready for p/u. Nu Zimmerman RN TOLOGICAL TECHNICIAN documented in this encounter Plan of Treatment Upcoming Encounters Date Type Specialty Care Team Description 07/27/2022 Ancillary Procedure Cardiology Cordell Juarez MD [address] [facility] [address] [place], [place] [address] (Wo rk) 07/27/2022 Office Visit Cardiology Cordell Juarez MD [address] [facility] [address] [place] [address] (Wo rk) documented as of this encounter Visit Diagnoses Diagnosis Attention deficit disorder with hyperact ivity(314.01) Attention deficit disorder with hyperact ivity documented in this encounter
--- OUTSIDE RECORDS SUMMARY | 2022-04-10 10:34 | XMS_ITS | Encounter Summary ---
:2000 Author Organization [place] Address [facility] [place] [address] Care Team Providers Name Role Phone Unavailable Primary Care Provider Unavailable Encounter Details Date Type Department Care Team Description 08/10/2009 Results Only [facility] Rudy Juarez MD Hospital Results [address] [place], [place] [address] (Wo rk) Social History Tobacco Use Types [...] Ancillary Procedure Cardiology Cordell Juarez MD [address] [place] [phone] (Wo rk) 07/27/2022 Office Visit Cardiology Cordell Juarez MD [address] [place] [phone] (Wo rk) documented as of this encounter Procedures Procedure Name Priority Date/Time Associated Diagnosis Comme nts HC DOPPLER ECHO Routine 08/10/2009 11:35 AM Resul ts for this COLOR FLOW VELOCITY VASCULAR TECHNICIAN procedur e are in MAP the results section. documented in this encounter Results DOPPLER COLOR FLOW VELOCITY MAP (08/10/2009 11:35 AM VASCULAR TECHNICIAN) Anatomical Region Laterality Modality Other Specimen (Source) Anatomical Collection Method Collection Time Re ceived Time Location / / Volume Laterality 08/10/2009 11:35 AM VASCULAR TECHNICIAN Impressions 08/10/2009 5:18 PM VASCULAR TECHNICIAN PEDIATRIC ECHOCARDIOGRAM [facility] ? ?Echocardiogram Lab ? Age: ??1 ? Wt: ? Ht: ? BSA: ?BP: ? [employer] ? Mobile Plant Operators: ??KBINDICATION: ??DORV A cardiac ultrasound study based [...] There is n o evidence of a [id number]-[id number] shunt at atrial, ventricular or great ar garret levels. Artemio Silva MD-Pager [phone] Gayathri Ayala MD-Pager [phone] Jorge Link MD-Pager [phone] or Cordell Juarez MD-Pager [phone] Jayson Bailey MD-Pager [phone] Vilma Rucker MD-Pager [phone] Cordell Juarez MD SPECIAL IMAGING STUDIES documented in this encounter Visit Diagnoses Not on filedocumented in this encounter
--- OUTSIDE RECORDS SUMMARY | 2022-04-10 10:34 | XMS_ITS | Encounter Summary ---
:2000 Author Organization [place] Address [address] [facility] [place] [address] Care Team Providers Name Role Phone Unavailable Primary Care Provider Unavailable Encounter Details Date Type Department Care Team Description 08/10/2009 Historic Results [facility] Alden Juarez MD Cardiology [address] [facility] [address] [place] [address] [place], [place] [address] (Wo rk) Social History Tobacco Use Types [...] Ancillary Procedure Cardiology Cordell Juarez MD [address] [place] [phone] (Wo rk) 07/27/2022 Office Visit Cardiology Cordell Juarez MD [facility] [address] [id number] (Wo rk) documented as of this encounter Procedures Procedure Name Priority Date/Time Associated Comments Diagnosis IGG Routine 08/10/2009 12:25 Results for this PM MEMBER SERVICES COORDINATOR procedure are i n the results section. CBC WITH PLATELETS & Routine 08/10/2009 12:25 Res ults for this DIFFERENTIAL PM MEMBER SERVICES COORDINATOR procedure are i n the results section. TSH WITH FREE T4 Routine 08/10/2009 12:25 Results for this REFLEX PM MEMBER SERVICES COORDINATOR procedure are i n the results section. N TERMINAL PRO BNP Routine 08/10/2009 12:25 Resul ts for this OUTPATIENT PM MEMBER SERVICES COORDINATOR procedure are i n the results section. COMPREHENSIVE Routine 08/10/2009 12:25 Results fo r this METABOLIC PANEL PM MEMBER SERVICES COORDINATOR procedure ar e in the results section. ANTITHROMBIN III Routine 08/10/2009 12:25 Results for this PM MEMBER SERVICES COORDINATOR procedure are i n the results section. documented in this encounter Results Antithrombin III (08/10/2009 12:25 PM MEMBER SERVICES COORDINATOR) P athologist Signature Antithrombin III 89 80 - 120 % [place] Chromogenic Specimen Anatomical Collection Method Collection Time Receive d Time (Source) Location / / Volume Laterality 08/10/2009 12:25 08/10/2009 PM MEMBER SERVICES COORDINATOR 12:17 PM MEMBER SERVICES COORDINATOR Cordell Juarez MD LAB - BLOOD ORDERABLES Performing Organization Address City/State/ZIP Code Phon e Number [place] (ABNORMAL) CBC with platelets differential (08/10/2009 12:25 PM MEMBER SERVICES COORDINATOR) Patholo gist Method Time Signature MCV 81 [...] / Volume Laterality 08/10/2009 12:25 08/10/2009 PM MEMBER SERVICES COORDINATOR 12:17 PM MEMBER SERVICES COORDINATOR Cordell Juarez MD LAB - BLOOD ORDERABLES Performing Organization Address City/State/ZIP Code Phon e Number [place] Comprehensive metabolic panel (08/10/2009 12:25 PM MEMBER SERVICES COORDINATOR) P athologist Signature Sodium 137 133 - [...] / Volume Laterality 08/10/2009 12:25 08/10/2009 PM MEMBER SERVICES COORDINATOR 12:17 PM MEMBER SERVICES COORDINATOR Cordell Juarez MD LAB - BLOOD ORDERABLES Performing Organization Address City/[facility]/ZIP Code Phon e Number [place] IgG (08/10/2009 12:25 PM MEMBER SERVICES COORDINATOR) P athologist Signature IGG 1010 585 - 1510 [place] mg/dL Specimen Anatomical Collection Method Collection Time Receive d Time (Source) Location / / Volume Laterality 08/10/2009 12:25 08/10/2009 PM MEMBER SERVICES COORDINATOR 12:17 PM MEMBER SERVICES COORDINATOR Cordell Juarez MD LAB - BLOOD ORDERABLES Performing Organization Address [facility] Code Phon e Number [place] N terminal pro BNP outpatient (08/10/2009 12:25 PM MEMBER SERVICES COORDINATOR) athologist Signature N-Terminal Pro 88 0 - 240 [place] Bnp pg/mL Specimen Anatomical Collection Method Collection Time Receive d Time (Source) Location / / Volume Laterality 08/10/2009 12:25 08/10/2009 PM MEMBER SERVICES COORDINATOR 12:17 PM MEMBER SERVICES COORDINATOR Cordell Juarez MD LAB - BLOOD ORDERABLES Performing Organization Address [facility] Code Phon e Number [place] TSH with free T4 reflex (08/10/2009 12:25 PM MEMBER SERVICES COORDINATOR) athologist Signature TSH 4.78 0.4 - 5.0 [place] mU/L Specimen Anatomical Collection Method Collection Time Receive d Time (Source) Location / / Volume Laterality 08/10/2009 12:25 08/10/2009 PM MEMBER SERVICES COORDINATOR 12:17 PM MEMBER SERVICES COORDINATOR Cordell Juarez MD LAB - BLOOD ORDERABLES Performing Organization Address City/[facility]/ZIP Code Phon e Number [place] documented in this encounter Visit Diagnoses Not on filedocumented in this encounter
--- OUTSIDE RECORDS SUMMARY | 2022-04-10 10:34 | XMS_ITS | Encounter Summary ---
:2000 Author Organization [place] Address [facility] [place] [address] Care Team Providers Name Role Phone Unavailable Primary Care Provider Unavailable Encounter Details Date Type Department Care Team Description 08/10/2009 Office Visit-[facility] INTERFACE [facility] Cordell Juarez MD [address] [facility] [place], [place] [address] (Wo rk) Social History Tobacco Use Types Packs/Day Years Used Date Smoking Tobacco: Never Comments: none at home Alcohol Use Standard Drinks/Week Comments Not Asked 0 (1 standard drink = 0.6 oz pure alcoho l) Sex Assigned at Date Recorded Male 03/09/2019 1:21 PM CDT documented as of this encounter Progress Notes Cordell Juarez - 08/10/2009 11:00 AM CST Packing Line Operator: Cordell Juarez Status: Final - Signature Encounter: 10 Aug 2009 Type: [facility] Division of Pediatric Cardiology Department of Pediatrics Pediatric Specialty Clinic - [address], [address] [place] [address] August 10, 2009 Ignacio Solo MD [facility] [address] [place] [address] RE: Jude Bills : 2000 MARTHA: 08/10/[address] Solo: I had the pleasure of seeing your patient, Jude Bills, in the Pediatric Cardiology Clinic at the [facility] on August 10, 2009. 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 He underwent a central shunt for Fortino procedure and completion of a Fontan procedure at age [age] at [facility]. He had device closure of his Fontan [...] his next visit. Sincerely, Cordell Juarez M.D. Foundry Supervisor Pediatric Cardiology Addendum: Jude's labs were normal as follows: AT III 82%, IgG 1010, BNP 88, ELectrolytes, creatinine(0.45) and LFT's were normal. Hgb was 13.6 with no suggestion of iron deficiency. Plt count was 268,000. SAMANTHA JL:11 cc: Parents of Jude Bills [address] [place] [address] Electronically signed by:Cordell Juarez M.D. Aug 28 2009 12:56PM TEACHERS' AIDE Co-author HERS' AIDE documented in this encounter Plan of Treatment Upcoming Encounters Date Type Specialty Care Team Description 07/27/2022 Ancillary Procedure Cardiology Cordell Juarez MD [address] [place] [address] (Wo rk) 07/27/2022 Office Visit Cardiology Cordell Juarez MD [address] [facility] [address] [place] [address] (Wo rk) documented as of this encounter Visit Diagnoses Not on filedocumented in this encounter
--- OUTSIDE RECORDS SUMMARY | 2022-04-10 10:34 | XMS_ITS | Encounter Summary ---
:2000 Author Organization [place] Address [facility] [place] [address] Care Team Providers Name Role Phone Unavailable Primary Care Provider Unavailable Reason for Visit Reason Onset Date Comments Refill Request 04/07/2009 Focalin XR Encounter Details Date Type Department Care Team Description 04/07/2009 Refill [facility] Ignacio Solo MD Refill Request (Focalin Clinic [place] [address] XR) [address] [place] [address] [place], [place] [phone] (Wo rk) [address] [phone] Social History Tobacco Use Types Packs/Day Years [...] Cordell Juarez MD [address] [place] [address] (Wo rk) 07/27/2022 Office Visit Cardiology Cordell Juarez MD [address] [place] [address] (Wo rk) documented as of this encounter Visit Diagnoses Diagnosis Attention deficit disorder with hyperact ivity(314.01) Attention deficit disorder with hyperact ivity documented in this encounter
--- OUTSIDE RECORDS SUMMARY | 2022-04-10 10:34 | XMS_ITS | Encounter Summary ---
:2000 Author Organization [place] Address [address] [place] [address] Care Team Providers Name Role Phone Unavailable Primary Care Provider Unavailable Encounter Details Date Type Department Care Team Description 03/13/2010 Orders Only [facility] Blood Stool Laboratory [address] [place] [address] Social History Tobacco Use [...] Ancillary Procedure Cardiology Cordell Juarez MD [address] [facility] [place], [place] [address] (Wo rk) 07/27/2022 Office Visit Cardiology Cordell Juarez MD [address] [place], [place] [address] (Arleen rk) documented as of this encounter [...] C. DIFF. CULTURE (03/13/2010 1:39 PM CDT) [employer] Access Technology Method Time Signature Specimen Feces [facility] C Difficile No Clostridium [facility] Culture difficile [facility] Specimen Anatomical Collection Method Collection Time Receive d Time (Source) Location / / Volume Laterality 03/13/2010 1:39 PM 0 1:44 CDT PM CDT Randy Hernandez MD LABORATORY Performing Organization Address City/[facility] Code Phon e Number [address] LAB [facility] CLOSTRIDIUM DIFFICILE TOXIN B (03/13/2010 1:38 PM CDT) Component Value Ref Test Analysis Performed At In[facility] Range Method Time Signature Specimen Feces [facility] LAB C Diff Toxin B Negative: Clostridium diffic ile target DNA sequences NOT detected, presumed [facility] PCR negative for Clostridium di fficile toxin B or the number of bacteria present [facility] may be below the limit of detection for the test. [facility] FDA approved assay performed using [employer] GeneXpert real-t isaiah PCR. A negative result [...] Randy Hernandez MD LABORATORY Performing Organization Address City/[facility]/ZIP Code Phon e Number [address] LAB [facility] OVA AND PARASITES (03/10/2010 1:39 PM CDT) Component Value Ref Test Analysis Performed At [facility] Range Method Time Signature Specimen Feces [facility] Parasite Routine parasitology exam negative [facility] Routine Specimen received in preservative [facility] Micro Report FINAL [facility] Status 03/14/[address] [facility] Specimen Anatomical Collection Method Collection Time Receive d Time (Source) Location / / Volume Laterality 03/10/2010 1:39 PM 0 1:44 CDT PM CDT Randy Hernandez MD LABORATORY Performing Organization Address City/[facility]/ZIP Code Phon e Number [phone] [place] [address] LAB [facility] CULTURE FOR ENTERIC PATHOGENS (03/10/2010 1:38 PM CDT) Component Value Ref Test Analysis Performed At [facility] Method Time Signature Specimen Feces [facility] LAB Shiga-Toxins Shiga toxin 1 NOT detected a nd Shiga toxin 2 NOT detected. ? Test results [facility]AL[facility] 1&2 are to be used in conjunction with information available from the [facility] clinical evaluation and other diagnostic procedures. HOSPITAL LAB Culture Micro No Salmonella, [facility] Shigella, [facility] Campylobacter or HOSPITAL LAB E coli 0157 isolated. Micro Report FINAL 03/15/2010 [facility] LAB Specimen Anatomical Collection Method Collection Time Receive d Time (Source) Location / / Volume Laterality 03/10/2010 1:38 PM 0 1:43 CDT PM CDT Randy Hernandez MD LABORATORY Performing Organization Address City/[facility]/ZIP Code Phon e Number M [facility] [address] [place] [address] HOSPITAL [facility] documented in this encounter Visit Diagnoses Diagnosis Blood stool Blood in stool documented in this encounter
--- OUTSIDE RECORDS SUMMARY | 2022-04-10 10:35 | XMS_ITS | Encounter Summary ---
:2000 Author Organization [place] Address [facility] [place] [address] Care Team Providers Name Role Phone Unavailable Primary Care Provider Unavailable Reason for Visit Reason Onset Date Comments Refill Request 01/25/2009 focalin Encounter Details Date Type Department Care Team Description 01/25/2009 Refill [facility] Ignacio Solo MD Refill Request Clinic [place] [address] (focalin) [address] [place] [address] [place], [place] [phone] (Wo rk) [address] [phone] Social History Tobacco Use Types Packs/Day Years [...] 12:25 PM CDT Notified mom rx at agent spa desk. Nu Zimmerman RN Telephone Encounter - Ignacio [...] Procedure Cardiology Cordell Juarez MD [address] [facility] [address] [place], [place] [phone] (Wo rk) 07/27/2022 Office Visit Cardiology Cordell Juarez MD [address] [place], [place] [address] (Wo rk) documented as of this encounter Visit Diagnoses Diagnosis Attention deficit disorder with hyperact ivity(314.01) - Primary Attention deficit disorder with hyperact ivity documented in this encounter
--- OUTSIDE RECORDS SUMMARY | 2022-04-10 10:35 | XMS_ITS | Encounter Summary ---
:2000 Author Organization [place] Address [address] [place] [address] Care Team Providers Name Role Phone Unavailable Primary Care Provider Unavailable Encounter Details Date Type Department Care Team Description 07/28/2008 Office Visit-[facility] INTERFACE [facility] DEPT Provider, [facility] Nurs e Social History Tobacco Use Types Packs/Day Years Used Date Smoking Tobacco: Never Comments: none at home Alcohol Use Standard Drinks/Week Comments Not Asked 0 (1 standard drink = 0.6 oz pure alcoho l) Sex Assigned at Date Recorded Male 03/09/2019 1:21 PM CDT documented as of this encounter Progress Notes Provider, [facility] Nurse - 07/28/2008 12:30 PM CST Cogeneration Technician: Delicia Izaguirre Status: Final Encounter: 28 Jul [...] By: Delicia Izaguirre RN; 07/28/2008 11:54 AM GROCERY STORE MANAGER. documented in this encounter Plan of Treatment Upcoming Encounters Date Type Specialty Care Team Description 07/27/2022 Ancillary Procedure Cardiology Cordell Juarez MD [address] [place] [address] (Wo rk) 07/27/2022 Office Visit Cardiology Cordell Juarez MD [address] [place] [address] (Wo rk) documented as of this encounter Visit Diagnoses Not on filedocumented in this encounter
--- OUTSIDE RECORDS SUMMARY | 2022-04-10 10:35 | XMS_ITS | Encounter Summary ---
:2000 Author Organization [place] Address [facility] [place] [address] Care Team Providers Name Role Phone Unavailable Primary Care Provider Unavailable Reason for Visit Reason Onset Date Comments Medication Request 02/17/2009 Tamiflu Encounter Details Date Type Department Care Team Description 02/17/2009 Telephone [facility] Ignacio Solo, [facility] Meir DUPREE (Tamiflu) [address] [place], [place] [phone] Social History Tobacco Use Types Packs/Day Years [...] CDT Notify mom rx was sent to [place] Telephone Encounter - Cheri Jurado - [...] Ancillary Procedure Cardiology Cordell Juarez MD [address] [place] [address] (Wo rk) 07/27/2022 Office Visit Cardiology Cordell Juarez MD [address] [facility] [address] [place] [address] (Wo rk) documented as of this encounter Visit Diagnoses Diagnosis Exposure to influenza Contact with or exposure to other viral diseases documented in this encounter
--- OUTSIDE RECORDS SUMMARY | 2022-04-10 10:35 | XMS_ITS | Encounter Summary ---
:2000 Author Organization [place] Address [address] [place] [address] Care Team Providers Name Role Phone Unavailable Primary Care Provider Unavailable Reason for Visit Reason Onset Date Comments Refill Request 05/04/2008 Focalin XR Encounter Details Date Type Department Care Team Description 05/04/2008 Refill [facility] Ignacio Solo MD Refill Request (F[facility] [place] [address] XR) [address] [place] [address] [place], [place] [phone] (Wo rk) [address] [phone] Social History Tobacco Use Types Packs/Day Years Used Date Smoking Tobacco: Never Comments: none at home Alcohol Use Standard Drinks/Week Comments Not Asked 0 (1 standard drink = 0.6 oz pure alcoho l) Sex Assigned at Date Recorded Male 03/09/2019 1:21 PM CDT documented as of this encounter Miscellaneous Notes Telephone Encounter - Cheri Jurado - 05/04/2008 10:42 AM CST Rx left at frontend engineer. Left message for mom letting her know this STANT PROJECT MANAGER Telephone Encounter - Ignacio Solo - 05/04/2008 10:35 AM CST Notify mom rx is ready please STANT PROJECT MANAGER Telephone Encounter - Nu Zimmerman - 05/04/2008 8:44 AM CST Mom calling for RF of Focalin XR. Last o/v 03/12/08. Current dose is working well. Plz call mom when ready for p/u at frontend engineer. Nu Zimmerman RN STANT PROJECT MANAGER documented in this encounter Plan of Treatment Upcoming Encounters Date Type Specialty Care Team Description 07/27/2022 Ancillary Procedure Cardiology Cordell Juarez MD [address] [facility] [address] [place] [address] (Wo rk) 07/27/2022 Office Visit Cardiology Cordell Juarez MD [address] [facility] [address] [place], [place] [phone] (Wo rk) documented as of this encounter Visit Diagnoses Diagnosis Attention deficit disorder with hyperact ivity(314.01) Attention deficit disorder with hyperact ivity documented in this encounter
--- OUTSIDE RECORDS SUMMARY | 2022-04-10 10:35 | XMS_ITS | Encounter Summary ---
:2000 Author Organization [place] Address [facility] [place] [address] Care Team Providers Name Role Phone Unavailable Primary Care Provider Unavailable Reason for Visit Reason Onset Date Comments Refill Request 03/02/2009 Focalin XR 10 mg. Encounter Details Date Type Department Care Team Description 03/02/2009 Refill [facility] Ignacio Solo MD Refill Request ([facility] [address] XR 10 mg. ) [address] [place] [address] [place], [place] [phone] (Wo rk) [address] [phone] Social History Tobacco Use Types Packs/Day Years [...] is working well. Please call mom to cloth picker. Last o.v. 7.2.09. documented in this encounter Plan of Treatment Upcoming Encounters Date Type Specialty Care Team Description 07/27/2022 Ancillary Procedure Cardiology Cordell Juarez MD [address] [facility] [address] [place] [address] (Wo rk) 07/27/2022 Office Visit Cardiology Cordell Juarez MD [address] [place] [address] (Wo rk) documented as of this encounter Visit Diagnoses Diagnosis Attention deficit disorder with hyperact ivity(314.01) Attention deficit disorder with hyperact ivity documented in this encounter
--- OUTSIDE RECORDS SUMMARY | 2022-04-10 10:35 | XMS_ITS | Encounter Summary ---
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 Mom advised of need for f/u appt HT READINESS TECHNICIAN Telephone Encounter - Ignacio Solo - 06/14/2008 1:28 PM CST Rx filled. Please advise to still come back in for wt check and f/u in late Jun or early Jul HT READINESS TECHNICIAN Telephone Encounter - Nu Zimmerman - 06/14/2008 11:21 AM CST Mom calling for RF of Focalin. Last o/v 03/12/08. Current dose is working well. Mom would like to geta couple months worth of medication if possible. Plz call when ready for p/u at front end driver. Nu Zimmerman RN HT READINESS TECHNICIAN documented in this encounter Plan of Treatment Upcoming Encounters Date Type Specialty Care Team Description 07/27/2022 Ancillary Procedure Cardiology Cordell Juarez MD [address] [facility] [address] [place], [place] [address] (Wo rk) 07/27/2022 Office Visit Cardiology Cordell Juarez MD [address] [facility] [address] [place] [address] (Wo rk) documented as of this encounter Visit Diagnoses Diagnosis Attention deficit disorder with hyperact ivity(314.01) - Primary Attention deficit disorder with hyperact ivity documented in this encounter
--- OUTSIDE RECORDS SUMMARY | 2022-04-10 10:35 | XMS_ITS | Encounter Summary ---
:2000 Author Organization [place] Address [address] [place] [address] Care Team Providers Name Role Phone Unavailable Primary Care Provider Unavailable Reason for Visit Reason Comments Recheck Medication Forms Encounter Details Date Type Department Care Team Description 12/16/2008 Office Visit [facility] Edil, Ignacio Mares, VACC INE FOR DISEASE NEC (Primary Dx); Clinic [place] ATTN DEFICIT W HYPERACT [address] [place] [id number] [phone] Social History Tobacco Use Types Packs/Day Years [...] 12/16/2008 3:26 PM CD T Growth Chart: [facility] [...] Fortino now with Fenestrated Fontan Done at [place] ??? INTESTINAL FIXATION ANOM s/p [place] procedure 03/2006 ??? ESOPHAGEAL REFLUX ??? ANOMALIES [...] 12/16/2008 3:30 PM CDT >> [facility] Dec 16, 2008 3:26 PM Patient presents with: Recheck Medication Forms Initial BP 80/58 Ht 4' 0.25 (1.226 m) Wt 51 lb 8 oz (23.36 kg) Body mass index is 15.55 kg/(m^2).. BP completed using cuff size: pediatric documented in this encounter Plan of Treatment Upcoming Encounters Date Type Specialty Care Team Description 07/27/2022 Ancillary Procedure Cardiology Cordell Juarez MD [address] [facility] [place], [place] [address] (Arleen valdes) 07/27/2022 Office Visit Cardiology Cordell Juarez MD [address] [place], [place] [address] (Arleen valdes) documented as of this encounter Visit Diagnoses Diagnosis Need for prophylactic vaccination and in oculation against other specified disease - Primary ATTN DEFICIT W HYPERACT Attention deficit disorder with hyperact ivity documented in this encounter
--- OUTSIDE RECORDS SUMMARY | 2022-04-10 10:35 | XMS_ITS | Encounter Summary ---
:2000 Author Organization [place] Address Critical access hospital0 [facility] [place] [address] Care Team Providers Name Role Phone Unavailable Primary Care Provider Unavailable Encounter Details Date Type Department Care Team Description 07/28/[address] [facility] Rudy Juarez MD Hospital Results [address] [place], [place] [address] (Wo rk) Social History Tobacco Use Types [...] Ancillary Procedure Cardiology Cordell Juarez MD [address] [place] [phone] (Wo rk) 07/27/2022 Office Visit Cardiology Cordell Juarez MD [address] [place] [address] [phone] (Wo rk) documented as of this encounter Procedures Procedure Name Priority Date/Time Associated Diagnosis Comme nts HC DOPPLER ECHO Routine 07/28/2008 12:32 PM Resul ts for this COLOR FLOW VELOCITY PAYROLL PROFESSIONAL procedur e are in MAP the results section. documented in this encounter Results DOPPLER COLOR FLOW VELOCITY MAP (07/28/2008 12:32 PM PAYROLL PROFESSIONAL) Anatomical Region Laterality Modality Other Specimen (Source) Anatomical Collection Method Collection Time Re ceived Time Location / / Volume Laterality 07/28/2008 12:32 PM PAYROLL PROFESSIONAL Impressions 07/29/2008 4:20 PM PAYROLL PROFESSIONAL PEDIATRIC ECHOCARDIOGRAM [facility] ? ?Echocardiogram Lab ? Age: ??1 ? W t: ? Ht: ? BSA: ? BP: ? Xcelera ? Interior Designer: ??KBINDICATION: Fontan A cardiac ultrasound study based [...] to right shunt. ?? Artemio Silva MD-Pager [phone] Gayathri Ayala MD-Pager [phone] Jorge Link MD-Pager [phone] or Cordell Juarez MD-Pager [phone] Jayson Bailey MD-Pager [phone] Vilma Rucker MD-Pager [phone] Cordell Juarez MD SPECIAL IMAGING STUDIES documented in this encounter Visit Diagnoses Not on filedocumented in this encounter
--- OUTSIDE RECORDS SUMMARY | 2022-04-10 10:35 | XMS_ITS | Encounter Summary ---
:2000 Author Organization [place] Address [facility] [place] [address] Care Team Providers Name Role Phone Unavailable Primary Care Provider Unavailable Encounter Details Date Type Department Care Team Description 07/28/2008 Office Visit-[facility] Cordell Juarez MD [address] [facility] [place], [place] [address] (Wo rk) Social History Tobacco Use Types Packs/Day Years Used Date Smoking Tobacco: Never Comments: none at home Alcohol Use Standard Drinks/Week Comments Not Asked 0 (1 standard drink = 0.6 oz pure alcoho l) Sex Assigned at Date Recorded Male 03/09/2019 1:21 PM CDT documented as of this encounter Progress Notes Cordell Juarez - 07/28/2008 12:30 PM CST Justice Professor: Cordell Juarez Status: Final - Signature Encounter: 28 Jul 2008 Type: [facility] Division of Pediatric Cardiology Department of Pediatrics Pediatric Specialty Clinic - [address], [address] [place] [address] July 28, 2008 Ignacio Solo MD [facility] [address] [place] [address] RE: Jude Bills : 2000 MARTHA: 07/28/[address] Solo: I had the pleasure of seeing your patient, Jude Bills, in the Pediatric Cardiology Clinic at the [facility] on July 28, 2008. 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 He underwent a central shunt followed by a Fortino procedure and completion of a Fontan procedure at [facility] in risk control representative. He had significant desaturation with activity so [...] the device. In summary, Jude is an jpeli-skuo-ref with a history of d-transposition, double outlet right ventricle, and hypoplastic left ventricle who is status post a fenestrated Fontan procedure at [facility]. His fenestration was closed a year and [...] in six months. Sincerely, Cordell Juarez M.D. Aviation Maintenance Instructor Pediatric Cardiology JL:lori cc: Parents of Jude Bills [address] [place] [address] Jostin Sal M.D. Pediatric Cardiology [facility] 94 Electronically signed by:Cordell Juarez M.D. Aug 13 2008 10:45AM SUPERVISOR PAPER TESTING RVISOR PAPER TESTING documented in this encounter Plan of Treatment Upcoming Encounters Date Type Specialty Care Team Description 07/27/2022 Ancillary Procedure Cardiology Cordell Juarez MD [address] [facility] [address] [place] [address] (Wo rk) 07/27/2022 Office Visit Cardiology Cordell Juarez MD [address] [facility] [address] [place] [address] (Wo rk) documented as of this encounter Visit Diagnoses Not on filedocumented in this encounter
--- OUTSIDE RECORDS SUMMARY | 2022-04-10 10:35 | XMS_ITS | Encounter Summary ---
:2000 Author Organization [place] Address [address] [place] [address] Care Team Providers Name Role Phone Unavailable Primary Care Provider Unavailable Reason for Visit Reason Comments Recheck Medication Encounter Details Date Type Department Care Team Description 09/10/2008 Office Visit [facility] gInacio Solo Atte ntion Deficit Clinic Meir DUPREE Disorder with [address] Hyperactivity (Primary [address] Dx) [place] [id number] Social History Tobacco Use Types Packs/Day Years [...] 09/10/2008 1:38 PM CD T Growth Chart: [facility] (Boys, 2-20 Years) documented [...] Fortino now with Fenestrated Fontan Done at [place] ??? INTESTINAL FIXATION ANOM s/p [place] procedure 03/2006 ??? ESOPHAGEAL REFLUX ??? 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
--- OUTSIDE RECORDS SUMMARY | 2022-04-10 10:35 | XMS_ITS | Encounter Summary ---
:2000 Author Organization [place] Address [address] [place] [address] Care Team Providers Name Role Phone Unavailable Primary Care Provider Unavailable Reason for Visit Reason Onset Date Comments Patient/info Update 04/15/2008 Encounter Details Date Type Department Care Team Description 04/15/2008 Telephone [facility] Ignacio Solo MD Patient/info Update Clinic [place] [address] [facility] [address] [place] [address] [place], [place] [phone] (Wo rk) [address] [phone] Social History Tobacco Use Types Packs/Day Years [...] Ancillary Procedure Cardiology Cordell Juarez MD [address] [place] [address] [place], [place] [address] (Arleen valdes) 07/27/2022 Office Visit Cardiology Cordell Juarez MD [address] [place], [place] [address] (Arleen valdes) documented as of this encounter Visit Diagnoses Not on filedocumented in this encounter
--- OUTSIDE RECORDS SUMMARY | 2022-04-10 10:35 | XMS_ITS | Encounter Summary ---
:2000 Author Organization [place] Address [address] [place] [address] Care Team Providers Name Role Phone Unavailable Primary Care Provider Unavailable Encounter Details Date Type Department Care Team Description 01/12/2009 Office Visit-[facility] INTERFACE [facility] DEPT Provider, [facility] Nurs e Social History Tobacco Use Types Packs/Day Years Used Date Smoking Tobacco: Never Comments: none at home Alcohol Use Standard Drinks/Week Comments Not Asked 0 (1 standard drink = 0.6 oz pure alcoho l) Sex Assigned at Date Recorded Male 03/09/2019 1:21 PM CDT documented as of this encounter Progress Notes Provider, [facility] Nurse - 01/12/2009 1:15 PM CDT Steam Table Attendant: Laney Morillo Status: Final Encounter: 12 Jan 2009 Type: Rooming Note Informant Parent is informant unless otherwise noted. Reason For Visit [chest pain ] Do you have any other appointments, tests or procedures within the [place] system for this same day? No. Pain [...] By: Laney Morillo L.P.N.; 01/12/2009 1:49 PM ROUND BONER. documented in this encounter Plan of Treatment Upcoming Encounters Date Type Specialty Care Team Description 07/27/2022 Ancillary Procedure Cardiology Cordell Juarez MD [address] [facility] [address] [place], [place] [phone] (Arleen valdes) 07/27/2022 Office Visit Cardiology Cordell Juarez MD [address] [place], [place] [address] (Arleen valdes) documented as of this encounter Visit Diagnoses Not on filedocumented in this encounter
--- OUTSIDE RECORDS SUMMARY | 2022-04-10 10:35 | XMS_ITS | Encounter Summary ---
:2000 Author Organization [place] Address [address] [place] [address] Care Team Providers Name Role Phone Unavailable [...] Ancillary Procedure Cardiology Cordell Juarez MD [address] [place] [address] (Wo rk) 07/27/2022 Office Visit Cardiology Cordell Juarez MD [address] [place] [phone] (Wo rk) documented as of this encounter [...] RESULTS Atrial Rate 73 BPM RADIOLOGY RESULTS CO Interval 144 ms RADIOLOGY RESULTS QRS Duration 74 ms RADIOLOGY RESULTS QT 356 ms RADIOLOGY RESULTS QTc 392 ms RADIOLOGY RESULTS P [place] 20 degrees RADIOLOGY RESULTS R AXIS -81 degrees RADIOLOGY RESULTS T [place] 61 degrees RADIOLOGY RESULTS Interpretation * Pediatric [...]
--- OUTSIDE RECORDS SUMMARY | 2022-04-10 10:35 | XMS_ITS | Encounter Summary ---
:2000 Author Organization [place] Address [facility] [address] Care Team Providers Name Role Phone Unavailable Primary Care Provider Unavailable Encounter Details Date Type Department Care Team Description 01/12/2009 Office Visit-[facility] Cordell Juarez MD [address] [facility] [place] [address] (Wo rk) Social History Tobacco Use Types Packs/Day Years Used Date Smoking Tobacco: Never Comments: none at home Alcohol Use Standard Drinks/Week Comments Not Asked 0 (1 standard drink = 0.6 oz pure alcoho l) Sex Assigned at Date Recorded Male 03/09/2019 1:21 PM CDT documented as of this encounter Progress Notes Cordell Juarez - 01/12/2009 1:15 PM CDT Landscape Artist: Cordell Juarez Status: Final - Signature Encounter: 12 Jan 2009 Type: [facility] Division of Pediatric Cardiology Department of Pediatrics Pediatric Specialty Clinic - [address], [address] [place] [address] January 12, 2009 Ignacio Solo MD [facility] [address] [place], [place] RE: Jude Bills : 2000 MARTHA: 01/12/2009 Dear Ignacio: I had the pleasure of seeing your patient, Jude Bills, in the Pediatric Cardiology Clinic at the [facility] on January 12, 2009. 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 He underwent a central shunt followedby a Fortino procedure and completion of a Fontan procedure at the [facility] in vehicle sales professional and had catheter closure of Fontan fenestration [...] his cardiovascular status. Sincerely, Cordell Juarez M.D. Powerplant Operator Pediatric Cardiology [id number] cc: Jaimie Bills [address] [place] [address] Electronically signed by:Cordell Juarez M.D. Jan 14 2009 9:53AM AD OPERATIONS INTERN documented in this encounter Plan of Treatment Upcoming Encounters Date Type Specialty Care Team Description 07/27/2022 Ancillary Procedure Cardiology Cordell Juarez MD [address] [facility] [place] [address] (Wo rk) 07/27/2022 Office Visit Cardiology Larry, Cordell skelton MD [address] [facility] [place] [address] (Wo rk) documented as of this encounter Visit Diagnoses Not on filedocumented in this encounter
--- OUTSIDE RECORDS SUMMARY | 2022-04-10 10:35 | XMS_ITS | Encounter Summary ---
:2000 Author Organization [place] Address [facility] [place] [address] Care Team Providers Name Role Phone Unavailable Primary Care Provider Unavailable Reason for Visit Reason Comments Edema L sided facial neck edema si nce yesterday, painful to touch Encounter Details Date Type Department Care Team Description 11/11/2008 Office Visit [facility] Yutyrell, Ignacio Karim, Clyde itis, Cervical (Primary Dx); Clinic Meir DUPREE Attention Deficit Disorder with Hyperact ivity [address] [place] [address] [place] [phone] Social History Tobacco Use Types Packs/Day Years [...] 09/07/2007 ??? INTESTINAL FIXATION ANOM [751.4] s/p [place] procedure 03/2006 ??? 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 Done at [place] ROS: no chills or rigors No CP [...] 11/11/2008 10:00 AM CDT >> [facility] November 11, 2008 10:13 AM Jude [...] Cordell Juarez MD [address] [place], [place] [phone] (Wo rk) 07/27/2022 Office Visit Cardiology Cordell Juarez MD [address] [place], [place] [phone] (Wo rk) documented as of this encounter [...] Value Ref Test Analysis Performed At [facility] Range Method Time Signature Specimen Throat [facility] LAB Culture Micro No Beta TUMACACORI Streptococcus BRIELLES isolated CLINIC LAB Report status FINAL 11/13/2008 [facility] Specimen Anatomical Collection Method Collection Time Receive d Time (Source) Location / / Volume Laterality 11/11/2008 10:41 11/11/2008 AM CDT 10:46 AM CDT Ignacio Solo MD LABORATORY Performing Organization Address City/State/ZIP Code Phon e Number [facility] [address] [place], [place] [address] [address] [facility] STREP GROUP A ANTIGEN (RAPID) (11/11/2008 10:41 AM CDT) Component Value Ref Test Analysis Performed At [facility] Range Method Time Signature Specimen Throat TUMACACORI Description [facility] Rapid Strep A NEGATIVE: No Group A strepto coccal antigen detected by immunoassay, await TUMACACORI Screen culture report. [facility] Report status FINAL 11/11/2008 [facility] Specimen Anatomical Collection Method Collection Time Receive d Time (Source) Location / / Volume Laterality 11/11/2008 10:41 11/11/2008 AM CDT 10:46 AM CDT Ignacio Solo MD LABORATORY Performing Organization Address City/State/ZIP Code Phon e Number [facility] [address] [place], [place] [address] [address] [facility] documented in this encounter Visit Diagnoses Diagnosis Adenitis, cervical - Primary Lymphadenitis, unspecified, except mesen teric Attention deficit disorder with hyperact ivity(314.01) Attention deficit disorder with hyperact ivity documented in this encounter
--- OUTSIDE RECORDS SUMMARY | 2022-04-10 10:35 | XMS_ITS | Encounter Summary ---
:2000 Author Organization [place] Address [address] [place] [address] Care Team Providers Name Role Phone Unavailable Primary Care Provider Unavailable Reason for Visit Reason Onset Date Comments Refill Request 12/16/2008 Encounter Details Date Type Department Care Team Description 12/16/2008 Refill [facility] Ignacio Solo MD Refill Request [place] [address] [facility] [address] [place] [address] [place] [address] [phone] Social History Tobacco Use Types Packs/Day Years [...] this weekend. Please refill and she will seed cone picker from the front office help later today. Marguerite Morrison TRUST OFFICER documented in this encounter Plan of Treatment Upcoming Encounters Date Type Specialty Care Team Description 07/27/2022 Ancillary Procedure Cardiology Cordell Juarez MD [address] [place] [address] (Wo rk) 07/27/2022 Office Visit Cardiology Cordell Juarez MD [address] [place] [address] (Wo rk) documented as of this encounter Visit Diagnoses Diagnosis Attention deficit disorder with hyperact ivity(314.01) - Primary Attention deficit disorder with hyperact ivity documented in this encounter
--- OUTSIDE RECORDS SUMMARY | 2022-04-10 10:35 | XMS_ITS | Encounter Summary ---
:2000 Author Organization [place] Address [address] [place] [address] Care Team Providers Name Role Phone Unavailable [...] Ancillary Procedure Cardiology Cordell Juarez MD [address] [place] [address] (Wo rk) 07/27/2022 Office Visit Cardiology Cordell Juarez MD [address] [place] [address] [phone] (Wo rk) documented as of this encounter Procedures Procedure Name Priority Date/Time Associated Diagnosis Comme nts EKG 12 LEAD Routine 07/28/2008 11:56 AM Results for this SERVICE TECH procedure are i n the results section . documented in this encounter Results EKG 12 LEAD (07/28/2008 11:56 AM SERVICE TECH) Component Value Ref Range Test Analysis Performed Pathologis t Method Time At Signature Ventricular Rate 74 BPM RADIOLOGY RESULTS Atrial Rate 74 BPM RADIOLOGY RESULTS MS Interval 136 ms RADIOLOGY RESULTS QRS Duration 80 ms RADIOLOGY RESULTS QT 362 ms RADIOLOGY RESULTS QTc 401 ms RADIOLOGY RESULTS P [place] 20 degrees RADIOLOGY RESULTS R AXIS -79 degrees RADIOLOGY RESULTS T [place] 66 degrees RADIOLOGY RESULTS Interpretation * Pediatric ECG Analysis * RADIOLOGY ECG Sinus rhythm RESULTS Left axis deviation Right ventricular hypertrophy with strain pattern Unconfirmed report - interpretation of this ECG is compute r generated - see medical record for final interpretati on Specimen Anatomical Collection Method Collection Time Receive d Time (Source) Location / / Volume Laterality 07/28/2008 11:56 09/02/2008 AM SERVICE TECH 10:06 AM CDT Transcripton Interface ECG ORDERABLES Performing Organization Address City/State/ZIP Code Phon e Number RADIOLOGY RESULTS documented in this encounter Visit Diagnoses Not on filedocumented in this encounter
--- OUTSIDE RECORDS SUMMARY | 2022-04-10 10:35 | XMS_ITS | Encounter Summary ---
:2000 Author Organization [place] Address [facility]0 [place] [address] Care Team Providers Name Role Phone Unavailable Primary Care Provider Unavailable Reason for Visit Reason Comments Derm Problem red, itchy rash on lower arm s and legs-since yesterday-worsening/eyes appear swollen per mom Encounter Details Date Type Department Care Team Description 04/15/2008 Office Visit [facility] Ignacio Solo, Phar yngitis (Primary Dx); Clinic [place] MD Hand Foot and Mouth Disease [address] [place] [address] [place] [place] [address] [phone] Social History Tobacco Use Types Packs/Day Years [...] Fortino now with Fenestrated Fontan Done at [place] ??? INTESTINAL FIXATION ANOM s/p [place] procedure [...] 04/15/2008 3:00 PM CDT >> R[place] [facility] Apr 15, 2008 2:47 PM Jude [...] Ancillary Procedure Cardiology Cordell Juarez MD [address] [id number] [place], [place] [address]64 (Wo rk) 07/27/2022 Office Visit Cardiology Cordell Juarez MD [address] [place], [place] [address] (Wo rk) documented as of this encounter [...] Component Value Ref Test Analysis Performed At [facility] Range Method Time Signature Specimen Throat [facility] Culture Micro No Beta KIVALINA Streptococcus [facility] isolated CLINIC LAB Report status FINAL 04/17/2008 [facility] Specimen Anatomical Collection Method Collection Time Receive d Time (Source) Location / / Volume Laterality 04/15/2008 3:17 PM 8 3:22 CDT PM CDT Ignacio Solo MD LABORATORY Performing Organization Address City/[facility]/ZIP Code Phon e Number [facility] [address] [place], [place] [address] [address] [facility] STREP GROUP A AG (RAPID) (04/15/2008 3:17 PM CDT) Component Value Ref Test Analysis Performed At [facility] Range Method Time Signature Specimen Throat [facility] Rapid Strep A NEGATIVE: No Group A strepto coccal antigen detected by immunoassay, await KIVALINA Screen culture report. [facility] Report status FINAL 04/15/2008 [facility] Specimen Anatomical Collection Method Collection Time Receive d Time (Source) Location / / Volume Laterality 04/15/2008 3:17 PM 8 3:22 CDT PM CDT Ignacio Solo MD LABORATORY Performing Organization Address [facility]/ZIP Code Phon e Number [facility] [address] [place], [place] [address] [address] [facility] documented in this encounter Visit Diagnoses Diagnosis Pharyngitis - Primary Acute pharyngitis Hand foot and mouth disease Hand, foot, and mouth disease documented in this encounter
--- OUTSIDE RECORDS SUMMARY | 2022-04-10 10:36 | XMS_ITS | Encounter Summary ---
:2000 Author Organization [place] Address [address] [place] [address] Care Team Providers Name Role Phone Unavailable Primary Care Provider Unavailable Reason for Visit Reason Onset Date Comments Call Back 08/27/2007 Encounter Details Date Type Department Care Team Description 08/27/2007 Telephone [facility] Ignacio Solo MD Call Back [place] [address] [address] [facility] [id number] [place] [phone] Social History Tobacco Use Types Packs/Day Years Used Date Smoking Tobacco: Never Comments: none at home Alcohol Use Standard Drinks/Week Comments Not Asked 0 (1 standard drink = 0.6 oz pure alcoho l) Sex Assigned at Date Recorded Male 03/09/2019 1:21 PM CDT documented as of this encounter Miscellaneous Notes Telephone Encounter - Ignacio Solo - 08/28/2007 6:47 PM CDT Discussed that Focalin started with Jude with Dr. Juarez Telephone Encounter - Yessi Hernandez - 08/27/2007 12:[address] Juarez calls PMD back, please page her @ number listed above. Yessi Hernandez RN documented in this encounter Plan of Treatment Upcoming Encounters Date Type Specialty Care Team Description 07/27/2022 Ancillary Procedure Cardiology Cordell Juarez MD [address] [place] [address] (Wo rk) 07/27/2022 Office Visit Cardiology Cordell Juarez MD [address] [place], [place] [address] (Wo rk) documented as of this encounter Visit Diagnoses Not on filedocumented in this encounter
--- OUTSIDE RECORDS SUMMARY | 2022-04-10 10:36 | XMS_ITS | Encounter Summary ---
:2000 Author Organization [place] Address [address] [place] [address] Care Team Providers Name Role Phone Unavailable [...] Ancillary Procedure Cardiology Cordell Juarez MD [address] [place] [address] (Wo rk) 07/27/2022 Office Visit Cardiology Cordell Juarez MD [address] [place] [address] [phone] (Wo rk) documented as of this encounter [...] RESULTS Atrial Rate 70 BPM RADIOLOGY RESULTS [place] Interval 144 ms RADIOLOGY RESULTS QRS Duration 86 ms RADIOLOGY RESULTS QT 378 ms RADIOLOGY RESULTS QTc 408 ms RADIOLOGY RESULTS P [place] -5 degrees RADIOLOGY RESULTS R AXIS -79 degrees RADIOLOGY RESULTS T [place] 61 degrees RADIOLOGY RESULTS Interpretation * Pediatric [...]
--- OUTSIDE RECORDS SUMMARY | 2022-04-10 10:36 | XMS_ITS | Encounter Summary ---
:2000 Author Organization [place] Address [facility] [place] [address] Care Team Providers Name Role Phone Unavailable Primary Care Provider Unavailable Reason for Visit Reason Onset Date Comments Refill Request 02/26/2008 focalin Encounter Details Date Type Department Care Team Description 02/26/[address] [facility] Ignacio Solo MD Refill Request Clinic [place] [address] (focalin) [address] [place] [address] [place], [place] [phone] (Wo rk) [address] [phone] Social History Tobacco Use Types Packs/Day Years [...] 12:56 PM CDT Rx left at front desk clerk Telephone Encounter - Cheri Jurado - 02/26/2008 4:34 PM CDT Mom requesting refill. Will roller picker once ready. Thank you documented in this encounter Plan of Treatment Upcoming Encounters Date Type Specialty Care Team Description 07/27/2022 Ancillary Procedure Cardiology Cordell Juarez MD [address] [facility] [address] [place], [place] [address] (Wo rk) 07/27/2022 Office Visit Cardiology Cordell Juarez MD [address] [place], [place] [address] (Wo rk) documented as of this encounter Visit Diagnoses Diagnosis Attention deficit disorder with hyperact ivity(314.01) Attention deficit disorder with hyperact ivity documented in this encounter
--- OUTSIDE RECORDS SUMMARY | 2022-04-10 10:36 | XMS_ITS | Encounter Summary ---
:2000 Author Organization [place] Address [address] [place] [address] Care Team Providers Name Role Phone Unavailable Primary Care Provider Unavailable Encounter Details Date Type Department Care Team Description 08/18/2007 Abstract M [facility] Abstract, Provider RENETTA LINDSEY ASSESSMENT Clinic [place] [address] [place] [address] Social History Tobacco Use Types [...] Ancillary Procedure Cardiology Cordell Juarez MD [address] [facility] [place], [place] [address] (Wo rk) 07/27/2022 Office Visit Cardiology Cordell Juarez MD [address] [facility] [address] [place], [place] [address] (Wo rk) documented as of this encounter Visit Diagnoses Not on filedocumented in this encounter
--- OUTSIDE RECORDS SUMMARY | 2022-04-10 10:36 | XMS_ITS | Encounter Summary ---
:2000 Author Organization [place] Address [address] [place] [address] Care Team Providers Name Role Phone Unavailable [...] Ancillary Procedure Cardiology Cordell Juarez MD [address] [place] [address] (Wo rk) 07/27/2022 Office Visit Cardiology Cordell Juarez MD [address] [place] [address] [phone] (Wo rk) documented as of this encounter [...] RESULTS Atrial Rate 79 BPM RADIOLOGY RESULTS TN Interval 126 ms RADIOLOGY RESULTS QRS Duration 82 ms RADIOLOGY RESULTS QT 366 ms RADIOLOGY RESULTS QTc 419 ms RADIOLOGY RESULTS P [place] 83 degrees RADIOLOGY RESULTS R AXIS -78 degrees RADIOLOGY RESULTS T [place] 70 degrees RADIOLOGY RESULTS Interpretation * Pediatric [...]
--- OUTSIDE RECORDS SUMMARY | 2022-04-10 10:36 | XMS_ITS | Encounter Summary ---
:2000 Author Organization [place] Address [facility] [place] [address] Care Team Providers Name Role Phone Unavailable Primary Care Provider Unavailable Reason for Visit Reason Comments Pharyngitis Sore throat for 10 days. Sym ptoms: hoarseness, hard to swollow, low grade temps. Has been a strep guerrier ier in past. Jose Luis Rivas CMA Encounter Details Date Type Department Care Team Description 07/23/2007 Office Visit [facility] MargaritaLino avila TREP SORE THROAT (Primary Dx); Clinic [place] Bhupendra Mcginnis MD ACUTE PHARYNGITIS [facility], [address] [place], [place] [address] [address] [facility] [phone] [place], [place] [address] (Wo rk) Social History [...] 36.4 ??C (97.6 ??F) 07/23/2007 8:45 AM FIELD ARTILLERY RADAR OPERATOR Respiratory Rate - - Oxygen Saturation - - Inhaled Oxygen Concentration - - Weight 21.3 kg (46 lb 14.4 oz) 07/23/2007 8:45 AM FIELD ARTILLERY RADAR OPERATOR Height 114.3 cm (3' 9) 07/23/2007 8:45 AM FIELD ARTILLERY RADAR OPERATOR Imwwxk-kip-Fhoxuz Percentile 73.71 % 07/23/2007 8:45 AM FIELD ARTILLERY RADAR OPERATOR Growth Chart: [facility] (Boys, 2-20 Years) Body Mass Index 16.28 07/23/2007 8:45 AM FIELD ARTILLERY RADAR OPERATOR Body Mass Index Percentile 65.72 % 07/23/2007 8:45 AM CS T Growth Chart: [facility] (Boys, 2-20 Years) documented in this encounter [...] Fortino now with Fenestrated Fontan Done at [place] ??? INTESTINAL FIXATION ANOM s/p [place] procedure 03/2006 ??? ESOPHAGEAL REFLUX ??? ANOMALIES [...] symptomatic and supportive care. Lino Avila MD [facility] D ARTILLERY RADAR OPERATOR documented in this encounter Plan of Treatment Upcoming Encounters Date Type Specialty Care Team Description 07/27/2022 Ancillary Procedure Cardiology Cordell Juarez MD [address] [place], [place] [address] (Wo rk) 07/27/2022 Office Visit Cardiology Cordell Juarez MD [address] [facility] [address] [place], [place] [address] (Wo rk) documented as of this encounter Procedures Procedure Name Priority Date/Time Associated Diagnosis Comme nts HCL STREP GROUP A Routine 07/23/2007 9:34 AM Acute Pharyngitis Results for this AG (RAPID) FIELD ARTILLERY RADAR OPERATOR procedure are i n the results section. documented in this encounter Results STREP GROUP A AG (RAPID) (07/23/2007 9:34 AM FIELD ARTILLERY RADAR OPERATOR) Component Value Ref Test Analysis Performed At [facility] Range Method Time Signature Specimen Throat [facility] Rapid Strep A POSITIVE: Group [place] Screen A Streptococcal [place] antigen detected [facility] by immunoassay. Report status FINAL 07/23/2007 [facility] Specimen Anatomical Collection Method Collection Time Receive d Time (Source) Location / / Volume Laterality 07/23/2007 9:34 AM 8 9:36 FIELD ARTILLERY RADAR OPERATOR AM FIELD ARTILLERY RADAR OPERATOR Lino Avila MD LABORATORY Performing Organization Address City/State/ZIP Code Phon e Number [facility] [address] [place] [address] [facility] documented in this encounter Visit Diagnoses Diagnosis Streptococcal sore throat - Primary Acute pharyngitis documented in this encounter
--- OUTSIDE RECORDS SUMMARY | 2022-04-10 10:36 | XMS_ITS | Encounter Summary ---
:2000 Author Organization [place] Address [facility] [place] [address] Care Team Providers Name Role Phone Unavailable Primary Care Provider Unavailable Reason for Visit Reason Comments RECHECK filled out forms from school and parents Encounter Details Date Type Department Care Team Description 08/25/2007 Office Visit [facility] Ignacio Solo, ATTN DEFICIT W HYPERACT (Primary Dx); Clinic [place] MD HYPOPLASTIC LEFT HEART SYND [address] [place] [address] [place] [phone] [phone] Social History Tobacco Use Types Packs/Day Years [...] cm (3' 10.5) 08/25/2007 4:15 PM CDT Psjllx-spr-Shajgk Percentile 56.73 % 08/25/2007 4:15 PM CDT Growth Chart: [facility] (Boys, 2-20 Years) Body Mass Index 15.61 08/25/2007 4:15 PM CDT Body Mass Index Percentile 49.26 % 08/25/2007 4:15 PM CD T Growth Chart: 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 Lawai with +scoring for ADD CONSULT PSYCHIATRY -for [...] 07/27/2022 Ancillary Procedure Cardiology Cordell Juarez MD [address] [facility] [place] [address] (Wo rk) 07/27/2022 Office Visit Cardiology [place], Cordell skelton MD [address] [facility] [place], [place] 204754 (Wo rk) documented as of this encounter Visit Diagnoses Diagnosis Attention deficit disorder with hyperact ivity(314.01) - Primary Attention deficit disorder with hyperact ivity Hypoplastic left heart syndrome documented in this encounter
--- OUTSIDE RECORDS SUMMARY | 2022-04-10 10:36 | XMS_ITS | Encounter Summary ---
:2000 Author Organization [place] Address [address] [place] [address] Care Team Providers Name Role Phone KomalStephen Primary Care Provider [facility] Primary Care Provider [phone] Magnus Zayas DO Primary Care Provider Magnus Zayas DO Unavailable [phone] Celeste Scales MD Unavailable Magnus Zayas DO Unavailable [phone] Magda Winchester MD Primary Care Provider Encounter Details Date Type Department Care Team Description 01/22/2008 [facility] Ignacio Solo MD [place] [address] [facility] [address] [place] [address] [place] [address] [phone] Social History Tobacco Use Types Packs/Day Years [...] Ancillary Procedure Cardiology Cordell Juarez MD [address] [place] [address] (Wo rk) 07/27/2022 Office Visit Cardiology Cordell Juarez MD [address] [place] [address] (Wo rk) documented as of this encounter Visit Diagnoses Not on filedocumented in this encounter Additional Health Concerns Infection Onset Date Last Indicated Resolved Time Rule Out COVID-19 12/18/2019 12/18/2019 12/19/2019 3:4 2 PM CDT Rule Out COVID-19 12/21/2019 12/21/2019 12/22/2019 2:3 2 AM CDT documented as of this encounter Care Teams Zipper Ironer Relationship Specialty Start Date End Date Stephen Sauceda PCP - General Pediatrics 03/06/17 06/24/[address] [address] [facility] PCP - General 06/25/19 02/22/20 [address] [place] [address] Magnus Zayas, PCP - General Student in [facility] 02/23/20 09/17/[address] education/training program [address] [place] [address] Magda Winchester PCP - General Family Medicine 09/18/21 MD [place] Magnus Zayas, Assigned PCP 02/28/2004/06 DO [address] [facility] [address] [place], [place] [address] Celeste Scales MD Assigned PCP 11/10/20 11/19/[address] [address] Magnus Zayas, Assigned PCP 11/20/20 DO [address] [facility] [address] [place], [place] [address] documented as of this encounter
--- OUTSIDE RECORDS SUMMARY | 2022-04-10 10:36 | XMS_ITS | Encounter Summary ---
:2000 Author Organization [address] [place] [address] Care Team Providers Name Role Phone Unavailable Primary Care Provider Unavailable Reason for Visit Reason Onset Date Comments Refill Request 12/10/2007 [facility] 125[facility]G Encounter Details Date Type Department Care Team Description 12/10/2007 Refill [facility] Cordell Juarez MD Refill Request (DIGOXIN Clinic [address] 125MCG) [address] [place] [address] [place], [place] [phone] (Wo rk) [address] [phone] Social History Tobacco Use Types Packs/Day Years [...] fill 11/06/2007 Last Qty 30 Wendy Wick, Control Room Tender [facility] documented in this encounter Plan of Treatment Upcoming Encounters Date Type Specialty Care Team Description 07/27/2022 Ancillary Procedure Cardiology Cordell Juarez MD [address] [facility] [address] [place], [place] [address] (Wo rk) 07/27/2022 Office Visit Cardiology Cordell Juarez MD [address] [place], [place] 240654 (Wo rk) documented as of this encounter Visit Diagnoses Not on filedocumented in this encounter
--- OUTSIDE RECORDS SUMMARY | 2022-04-10 10:36 | XMS_ITS | Encounter Summary ---
:2000 Author Organization [place] Address [facility] [place] [address] Care Team Providers Name Role Phone Unavailable Primary Care Provider Unavailable Encounter Details Date Type Department Care Team Description 03/26/2007 Results Only [facility] Rudy Juarez MD Hospital Results [address] [place], [place] [address] (Wo rk) Social History Tobacco Use Types [...] Ancillary Procedure Cardiology Cordell Juarez MD [address] [place] [address] [phone] (Wo rk) 07/27/2022 Office Visit Cardiology Cordell Juarez MD [address] [place] [address] [phone] (Wo rk) documented as of this encounter [...] PEDIATRIC ECHOCARDIOGRAM Mar 26, 2007 4:32 PM [facility] E chocardiogram Lab ?? : 2000 ? Wt: [ ] ? Ht : [ ] ? BSA: [ ] ? BP: [ ] Xcelera ? Hoop Coiler: M-Mode, 2-D, D oppler and Color Flow [...] s 0.8 m/sec. Artemio Silva MD ??(Pager [phone]) Gayathri Ayala MD ??(Pager ) Jorge Link MD ??([phone] or ) Cordell Juarez MD ??(Pager [phone]) Jayson Bailey MD ??(Pager [phone]) Aga Rucker MD ??(Pager ) Cordell Juarez MD SPECIAL IMAGING STUDIES documented in this encounter Visit Diagnoses Not on filedocumented in this encounter
--- OUTSIDE RECORDS SUMMARY | 2022-04-10 10:36 | XMS_ITS | Encounter Summary ---
:2000 Author Organization [place] Address [facility] [place] [address] Care Team Providers Name Role Phone Unavailable Primary Care Provider Unavailable Encounter Details Date Type Department Care Team Description 12/10/2007 Results Only [facility] Rudy Juarez MD Hospital Results [address] [place], [place] [address] (Wo rk) Social History Tobacco Use Types [...] Ancillary Procedure Cardiology Cordell Juarez MD [address] [place] [address] [phone] (Wo rk) 07/27/2022 Office Visit Cardiology Cordell Juarez MD [address] [place] [address] [phone] (Wo rk) documented as of this encounter Procedures Procedure Name Priority Date/Time Associated Diagnosis Commnafisa nts ZZHC ECHO Routine 12/10/2007 12:20 PM Results for this XTHORACIC,NEHEMIAS CDT procedure are in ANOM,COMPLETE the results section. documented in this encounter Results ECHO XTHORACIC,NEHEMIAS ANOM,COMPLETE (12/10/2007 12:20 PM CDT) Component Value Ref Test Analysis Performed At [facility] Range Method Time Signature IMAGECAST PEDIATRIC ECHOCARDIOGRAM ?? RA DIOLOGY RESULT [facility] ??Echocardiogram Lab RESULTS ? Age: ??1 ? Wt: ? Ht: ? BSA: ? BP: ? Xcelera ? [employer] Director: ??KB INDICATION: ?? A cardiac ultrasound study [...] of fenestration seen. ?? Artemio Silva MD-Pager [phone] ?? Gayathri Ayala MD-Pager [phone] ?? Jorge Link MD-Pager [phone] or [phone] Cordell Juarez MD-Pager [phone] ?? Jayson Bailey MD-Pager [phone] Vilma Rucker MD-Pager [phone] Specimen (Source) Anatomical Collection Method Collection Time Re ceived Time Location / / Volume Laterality 12/10/2007 12:20 PM CDT Cordell Juarez MD PROCEDURES Performing Organization Address City/State/ZIP Code Phon e Number RADIOLOGY RESULTS documented in this encounter Visit Diagnoses Not on filedocumented in this encounter
--- OUTSIDE RECORDS SUMMARY | 2022-04-10 10:36 | XMS_ITS | Encounter Summary ---
:2000 Author Organization [place] Address [address] [place] [address] Care Team Providers Name Role Phone Unavailable Primary Care Provider Unavailable Encounter Details Date Type Department Care Team Description 12/10/2007 Office Visit-[facility] Provider, [facility] Nurse [facility] [address] [place] [address] Social History Tobacco Use Types Packs/Day Years Used Date Smoking Tobacco: Never Comments: none at home Alcohol Use Standard Drinks/Week Comments Not Asked 0 (1 standard drink = 0.6 oz pure alcoho l) Sex Assigned at Date Recorded Male 03/09/2019 1:21 PM CDT documented as of this encounter Progress Notes Provider, [facility] Nurse - 12/10/2007 12:30 PM CDT Delinquency Prevention Social Worker: Delicia Izaguirre Status: Final Encounter: 10 Dec [...] By: Delicia Izaguirre RN; 12/10/2007 11:55 AM FLOOR LAYER HELPER. documented in this encounter Plan of Treatment Upcoming Encounters Date Type Specialty Care Team Description 07/27/2022 Ancillary Procedure Cardiology Cordell Juarez MD [address] [facility] [address] [place] [address] (Wo rk) 07/27/2022 Office Visit Cardiology Cordell Juarez MD [address] [facility] [address] [place] [address] (Wo rk) documented as of this encounter Visit Diagnoses Not on filedocumented in this encounter
--- OUTSIDE RECORDS SUMMARY | 2022-04-10 10:36 | XMS_ITS | Encounter Summary ---
:2000 Author Organization [place] Address [address] [place] [address] Care Team Providers Name Role Phone Unavailable Primary Care Provider Unavailable Reason for Visit Reason Comments RECHECK follow up adhd and meds Encounter Details Date Type Department Care Team Description 03/12/2008 Office Visit [facility] Ignacio Solo, ATTN DEFICIT W HYPERACT (Primary Dx); Clinic Meir DUPREE Sleep Disorder [address] [place] [id number] [phone] Social History Tobacco Use Types Packs/Day Years [...] cm (3' 11.5) 03/12/2008 9:30 AM CDT Kvbwaj-soz-Foitkd Percentile 38.01 % 03/12/2008 9:30 AM CDT Growth Chart: [facility] (Boys, 2-20 Years) Body Mass Index 15.05 03/12/2008 9:30 AM CDT Body Mass Index Percentile 30.30 % 03/12/2008 9:30 AM CD T Growth Chart: [facility] (Boys, 2-20 Years) documented in this [...] 09/07/2007 ??? INTESTINAL FIXATION ANOM [751.4] s/p [place] procedure 03/2006 ??? 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 Done at [place] Current Concerns: mood, emotions Medical Concerns:NO problems [...] Appointment time: 30 minutes, over [facility]2 [facility] Discussed sleeping difficulties and possible trial of [...] Juarez MD [address] [place] [address] (Wo rk) 07/27/2022 Office Visit Cardiology Cordell Juarez MD [address] [place], [place] [address] (Wo rk) documented as of this encounter Visit Diagnoses Diagnosis ATTN DEFICIT W HYPERACT - Primary Attention deficit disorder with hyperact ivity Sleep disorder Sleep disturbance, unspecified documented in this encounter
--- OUTSIDE RECORDS SUMMARY | 2022-04-10 10:36 | XMS_ITS | Encounter Summary ---
:2000 Author Organization [place] Address [address] [place] [address] Care Team Providers Name Role Phone Unavailable Primary Care Provider Unavailable Reason for Visit Reason Comments Recheck Medication Encounter Details Date Type Department Care Team Description 09/22/2007 Office Visit [facility] [place], Ignacio Mares, ATTN DEFICIT [facility] Meir DUPREE HYPERACT (Primary Dx) [address] [place] [address] [place] [place] [address] [phone] Social History Tobacco Use Types Packs/Day Years [...] cm (3' 10.25) 09/22/2007 4:15 PM CDT Tamrkx-fiv-Mbhtmv Percentile 56.83 % 09/22/2007 4:15 PM CDT Growth Chart: [facility][NOTE 2] (Boys, 2-20 Years) Body Mass Index 15.61 09/22/2007 4:15 PM CDT Body Mass Index Percentile 48.71 % 09/22/2007 4:15 PM CD T [facility] [...] 09/07/2007 ??? INTESTINAL FIXATION ANOM [751.4] s/p [place] procedure 03/2006 ??? 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
--- OUTSIDE RECORDS SUMMARY | 2022-04-10 10:36 | XMS_ITS | Encounter Summary ---
:2000 Author Organization [place] Address [address] [place] [address] Care Team Providers Name Role Phone Unavailable Primary Care Provider Unavailable Reason for Visit Reason Onset Date Comments Patient Request 02/26/2007 Encounter Details Date Type Department Care Team Description 02/26/2007 Telephone [facility] Ignacio Solo MD Patient Request [place] [address] [address] [facility] [id number] [place] [address] [phone] Social History Tobacco Use Types Packs/Day Years [...] MD [address] [facility] [address] [place] [address] (Wo rk) 07/27/2022 Office Visit Cardiology Cordell Juarez MD [address] [facility] [address] [place] [address] (Wo rk) documented as of this encounter Visit Diagnoses Not on filedocumented in this encounter
--- OUTSIDE RECORDS SUMMARY | 2022-04-10 10:36 | XMS_ITS | Encounter Summary ---
:2000 Author Organization [place] Address [address] [place] [address] Care Team Providers Name Role Phone Unavailable Primary Care Provider Unavailable Encounter Details Date Type Department Care Team Description 02/23/2007 Historic Results INTERFACED REPORT Paresh Gooden MD [facility] [address] [place], [place] [address] (Wo rk) Social History [...] Cardiology Cordell Juarez MD [facility]0 [place] [address] [address] (Wo rk) 07/27/2022 Office Visit Cardiology Cordell Juarez MD [address] [place] [address] [facility] [place], [place] [phone] (Wo rk) documented as of this encounter [...] differential and platelet (02/23/2007 12:05 PM CDT) [facility] gist Method Time Signature MCV 79 70 [...] Basic metabolic panel (02/23/2007 12:05 PM CDT) [facility] [employer] Method Time Signature Sodium 139 133 - [...] MISYS Blood culture (02/23/2007 12:05 PM CDT) [facility] [employer] Method Time Signature Specimen Right Arm MISYS Description Culture Micro No growth MISYS after 6 days Micro Report FINAL MISYS Status [id number] Specimen Anatomical Collection Method Collection Time Receive d Time (Source) Location / / Volume Laterality 02/23/2007 12:05 02/23/2007 PM CDT 11:54 AM CDT Ralph Gooden MD LAB - MICRO GENERAL ORDERABL ES Performing Organization Address City/State/ZIP Code Phon e Number MISYS documented in this encounter Visit Diagnoses Not on filedocumented in this encounter
--- OUTSIDE RECORDS SUMMARY | 2022-04-10 10:36 | XMS_ITS | Encounter Summary ---
:2000 Author Organization [place] Address [address] [place] [address] Care Team Providers Name Role Phone Unavailable Primary Care Provider Unavailable Reason for Visit Reason Comments Recheck Medication Encounter Details Date Type Department Care Team Description 11/07/2007 Office Visit [facility] Ignacio Solo Atte ntion Deficit Clinic Meir DUPREE Disorder with [address] [place] [address] Hyperactivity (Primary [address] Dx) [place] [phone] Social History Tobacco Use Types Packs/Day Years [...] cm (3' 10.75) 11/07/2007 10:30 AM CDT Xykhih-tuu-Gmtxfw Percentile 56.59 % 11/07/2007 10:30 AM CDT Growth Chart: [facility] (Boys, 2-20 Years) Body Mass Index 15.6 11/07/2007 10:30 AM CDT Body Mass Index Percentile 47.51 % 11/07/2007 10:30 AM C DT Growth Chart: [facility] (Boys, 2-20 Years) documented in this encounter Progress Notes Ignacio Sloo - 11/07/2007 11:17 AM CDT SUBJECTIVE: Jude [...] 09/07/2007 ??? INTESTINAL FIXATION ANOM [751.4] s/p [place] procedure 03/2006 ??? 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
--- OUTSIDE RECORDS SUMMARY | 2022-04-10 10:36 | XMS_ITS | Encounter Summary ---
:2000 Author Organization [place] Address [address] [place] [place] [address] Care Team Providers Name Role Phone Unavailable Primary Care Provider Unavailable Encounter Details Date Type Department Care Team Description 12/10/2007 Historic Results [facility] Alden Juarez MD Cardiology [address] [facility] [address] [place] [address] [place], [place] [address] (Wo rk) Social History Tobacco Use Types [...] Ancillary Procedure Cardiology Cordell Juarez MD [address] [place] [phone] (Wo rk) 07/27/2022 Office Visit Cardiology Cordell Juarez MD [facility] [address] [address] (Wo rk) documented as of this encounter [...] with platelets differential (12/10/2007 1:50 PM CDT) [facility] gist Method Time Signature MCV 80 70 [...] ORDERABLES Performing Organization Address City/[facility]/ZIP Code Phon e Number MISYS IgG (12/10/2007 1:50 PM CDT) athologist Signature IGG 1110 610 - 1230 MISYS mg/dL Specimen Anatomical Collection Method Collection Time Receive d Time (Source) Location / / Volume Laterality 12/10/2007 1:50 PM 8 1:37 CDT PM CDT Cordell Juarez MD LAB - BLOOD ORDERABLES Performing Organization Address [facility] Phon e Number MISYS documented in this encounter Visit Diagnoses Not on filedocumented in this encounter
--- OUTSIDE RECORDS SUMMARY | 2022-04-10 10:36 | XMS_ITS | Encounter Summary ---
:2000 Author Organization [place] Address Critical access hospital0 [place] [address] Care Team Providers Name Role Phone Unavailable Primary Care Provider Unavailable Reason for Visit Reason Onset Date Comments Refill Request 12/15/2007 Focalin XR 10 mg. ca ps Encounter Details Date Type Department Care Team Description 12/15/2007 Refill [facility] Ignacio Solo MD Refill Request ([facility] [place] [address] XR 10 mg. caps) [address] [place] [address] [place], [place] [phone] (Wo rk) [address] [phone] Social History Tobacco Use Types Packs/Day Years Used Date Smoking Tobacco: Never Comments: none at home Alcohol Use Standard Drinks/Week Comments Not Asked 0 (1 standard drink = 0.6 oz pure alcoho l) Sex Assigned at Date Recorded Male 03/09/2019 1:21 PM CDT documented as of this encounter Miscellaneous Notes Telephone Encounter - Cheri Jurado - 12/15/2007 4:43 PM CDT Rx at electrician front. Mom notified Telephone Encounter - Ignacio Solo 12/15/2007 4:27 PM CDT Notify mom rx is ready Telephone Encounter - Yessi Hernandez - 12/15/2007 3:52 PM CDT Faxed request received from pharmacy. [employer] o.v. [phone]. Yessi Hernandez R.N. 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
--- OUTSIDE RECORDS SUMMARY | 2022-04-10 10:36 | XMS_ITS | Encounter Summary ---
:2000 Author Organization [place] Address [address] [facility] [place] [address] Care Team Providers Name Role Phone Unavailable Primary Care Provider Unavailable Encounter Details Date Type Department Care Team Description 12/10/2007 Office Visit-[facility] Cordell Juarez MD [address] [facility] [place], [place] [address] (Wo rk) Social History Tobacco Use Types Packs/Day Years Used Date Smoking Tobacco: Never Comments: none at home Alcohol Use Standard Drinks/Week Comments Not Asked 0 (1 standard drink = 0.6 oz pure alcoho l) Sex Assigned at Date Recorded Male 03/09/2019 1:21 PM CDT documented as of this encounter Progress Notes Cordell Juarez - 12/10/2007 12:30 PM CDT Quality Systems Engineer: Cordell Juarez Status: Final - Signature Encounter: 10 Dec 2007 Type: [facility] Division of Pediatric Cardiology Department of Pediatrics Pediatric Specialty Clinic - [address], [address] [place] [address] December 10, 2007 Ignacio Solo M.D. [facility] [address] [facility]. [address] [place] [address] RE: Jude Bills : 2000 MARTHA: 12/10/[address] Solo: I had the pleasure of seeing your patient, Jude Bills, in the Pediatric Cardiology Clinic at [facility] Children[facility] Specialty Clinic on December 10, 2007. 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 He underwent a central shunt Fortino procedure and finally fenestrated Fontan procedure at [facility] in [place]. In January 2007, he underwent a device closer at his Fontan fenestration by one of my partners, Dr. Jostin Sal at [facility]. He did well with that procedure and [...] well-appearing young man. He has a great yakut and lots of bumps and bruises. He [...] hematocrit of 38.6%. Stool studies including an qiizp-9faxn-ncgckqx, ova and parasites, and anti- thrombin 3 and serum IgG are pending. Addendum: IgG and ATIII levels are normal. No stool sample was received. (12/29/07 [facility]). In summary, Jude is a 7 year [...] him with you. Sincerely, Cordell Juarez M.D. Reeling Machine Setup Operator Pediatric Cardiology JL:cb }}[address] [place] [address] Jostin Sal M.D. Pediatric Cardiology }}[facility] 94 \* MERGEFORMAT cc: Parents of Jude Bills [address] [place] [address] Jostin Sal M.D. Pediatric Cardiology [facility] 94 Electronically signed by:Cordell Juarez M.D. Dec 29 2007 2:11PM SUPERINTENDENT OIL FIELD DRILLING documented in this encounter Plan of Treatment Upcoming Encounters Date Type Specialty Care Team Description 07/27/2022 Ancillary Procedure Cardiology Cordell Juarez MD [address] [facility] [address] [address] [place], [place] [address] (Arleen valdes) 07/27/2022 Office Visit Cardiology Cordell Juarez MD [address] [place] [address] (Arleen valdes) documented as of this encounter Visit Diagnoses Not on filedocumented in this encounter
--- OUTSIDE RECORDS SUMMARY | 2022-04-10 10:36 | XMS_ITS | Encounter Summary ---
:2000 Author Organization [place] Address [facility] [place] [address] Care Team Providers Name Role Phone Unavailable Primary Care Provider Unavailable Reason for Visit Reason Onset Date Comments Patient/info Update 03/15/2008 Encounter Details Date Type Department Care Team Description 03/15/2008 Telephone [facility] Ignacio Solo MD Patient/info Update Clinic [place] [address] [facility] [address] [place] [address] [place], [place] [phone] (Wo rk) [address] [phone] Social History Tobacco Use Types Packs/Day Years Used Date Smoking Tobacco: Never Comments: none at home Alcohol Use Standard Drinks/Week Comments Not Asked 0 (1 standard drink = 0.6 oz pure alcoho l) Sex Assigned at Date Recorded Male 03/09/2019 1:21 PM CDT documented as of this encounter Miscellaneous Notes Telephone Encounter - Cheri Jurado - 03/15/2008 2:35 PM CDT Rx at front end alignment specialist. Telephone Encounter - Ignacio Solo - 03/15/2008 2:25 PM CDT Mom to miner pick rx Telephone Encounter - Yessi Hernandez - 03/15/2008 10:51 AM CDT Mom calls with an update after speaking with top closer. Aircraft Hydraulic Equipment Mechanic said Adderall would be fine.Clonidine would be fine as long as bp is monitored. Yessi Hernandez R.N. documented in this encounter Plan of Treatment Upcoming Encounters Date Type Specialty Care Team Description 07/27/2022 Ancillary Procedure Cardiology Cordell Juarez MD [address] [facility] [address] [place] [address] (Wo rk) 07/27/2022 Office Visit Cardiology Cordell Juarez MD [address] [place] [facility] [address] [place] [address] (Wo rk) documented as of this encounter Visit Diagnoses Not on filedocumented in this encounter
--- OUTSIDE RECORDS SUMMARY | 2022-04-10 10:36 | XMS_ITS | Encounter Summary ---
:2000 Author Organization [place] Address [address] [place] [address] Care Team Providers Name Role Phone Unavailable Primary Care Provider Unavailable Encounter Details Date Type Department Care Team Description 01/18/2008 Historic Results [facility] Alden Juarez MD Cardiology [address] [facility] [address] [place] [address] [place], [place] [address] (Wo rk) Social History Tobacco Use Types [...] Ancillary Procedure Cardiology Cordell Juarez MD [address] [place] [id number] (Wo rk) 07/27/2022 Office Visit Cardiology Cordell Juarez MD Critical access hospital0 [address] [address] (Wo rk) documented as of this encounter [...] (01/18/2008 7:20 PM CDT) P athologist Signature Kciqc-2-Ssnuejt 0.52 MISYS p Stool Comment: Reference range: 0.00 to 0.62 Unit: mg/g (Note) Performed by [facility], [address] [place] [address] [email or web address], ??Kofi Stern MD - Lab. Director Specimen Anatomical Collection Method Collection Time Receive d Time (Source) Location / / Volume Laterality 01/18/2008 7:20 PM 8 8:51 CDT AM CDT Cordell Juarez MD LAB - STOOLS ORDERABLES Performing Organization Address City/[facility] Code Phon e Number MISYS Ova and parasites (01/18/2008 7:20 PM CDT) Component Value Ref Test Analysis Performed At [facility] gist Range Method Time Signature Specimen Feces MISYS Description Micro Report FINAL 01/20/2008 MISYS Status Parasite Routine MISYS Routine parasitology exam negative Comment: Specimen received in preservati ve Specimen Anatomical Collection Method Collection Time Receive d Time (Source) Location / / Volume Laterality 01/18/2008 7:20 PM 8 8:51 CDT AM CDT Cordell Juarez MD LAB - MICRO GENERAL ORDERABL ES Performing Organization Address City/[facility]/ZIP Code Phon e Number MISYS Stool culture SSCE (01/18/2008 7:20 PM CDT) Component Value Ref Test Analysis Performed At [facility] gist Range Method Time Signature Specimen Feces [...]
--- OUTSIDE RECORDS SUMMARY | 2022-04-10 10:37 | XMS_ITS | Encounter Summary ---
:2000 Author Organization [place] Address [address] [place] [address] Care Team Providers Name Role Phone Unavailable Primary Care Provider Unavailable Encounter Details Date Type Department Care Team Description 02/06/[address] [facility] Trell Tolbert MD [facility] Results Hospitalist Prog chapin [address] [facility] [phone] [place] [address] (Wo rk) Social History Tobacco [...] Ancillary Procedure Cardiology Cordell Juarez MD [address] [place], [place] [address] (Wo rk) 07/27/2022 Office Visit Cardiology Cordell Juarez MD [address] [phone] (Wo rk) documented as of this encounter [...]
--- OUTSIDE RECORDS SUMMARY | 2022-04-10 10:37 | XMS_ITS | Encounter Summary ---
:2000 Author Organization [place] Address [address] [place] [address] Care Team Providers Name Role Phone Unavailable [...] as of this encounter Progress Notes Interface, Fire Extinguisher Charger - 09/04/2010 10:57 AM CDT Nursing note: Pt. status D/I: Pt's HR decreased down into high 50's to mid 60's. Rachid Starks MD notified. Had telephone clerk monitoring and to page nurse if decreased below 55. Pt. has pressure dressing in right groin after hematoma development post procedure. Dressing C/D/I, palpable 2+ pedal pulses. All other VSS. A: Pt. slept through noc. P: continue with POC, notify MD of any changes. [Signature] Author:Steph WhiteRN) [Signed 07-Feb-2007 06:42] Interface, Fire Extinguisher Charger - 09/04/2010 10:56 AM CDT D/I: Pt to be discharged today if echocardiogram shows good results. Cath site at right groin looks good with no drainage or hematoma noted. Pt complains of some pain at sight when he stood up for a period of time to wash this morning. Dr. guan notified. Per mom, pt's primary financial sales representative assessed pt this morning and ordered pt [...] Procedure Cardiology Cordell Juarez MD [facility] [place] [address] [place] [address] (Arleen valdes) 07/27/2022 Office Visit Cardiology Cordell Juarez MD [address] [facility] [address] [place] [address] (Arleen valdes) documented as of this encounter Visit Diagnoses Not on filedocumented in this encounter
--- OUTSIDE RECORDS SUMMARY | 2022-04-10 10:37 | XMS_ITS | Encounter Summary ---
:2000 Author Organization [place] Address Formerly [facility] [place] [address] Care Team Providers Name Role Phone Unavailable [...] as of this encounter Progress Notes Interface, Brick And Tile Making Machine Operator - 09/04/2010 10:58 AM CDT Focus: Arrival on 5A, low HR D: Pt. arrived on 5A at 1400. Pt. put onto telemetery. Family familiar to 5A. A: Pt. VS stable, but HR low between 45-66. Groin site D/I, and lower extremity pulses good. Pt. alert and oriented. I: Dr. Tolbert #[id number] paged about the low HR. Pt. continued to be monitored on telemetery. Order received to get 12 lead EKG. P: Cont. to monitor HR and VS. Keep pt. on BR until 1630. Call MD with further concerns r/t bradycardia. [Signature] Author:SANDEEP MILIAN) [Signed 06-Feb-2007 17:48] Interface, Brick And Tile Making Machine Operator - 09/04/2010 10:58 AM CDT Nursing Focus: Post cath D: Pt c/o tenderness at groin puncture site. Area appeared more swollen then when previously assessed. Pedal/post-tibial pulses intact. Per mom, pt has history of hematomas after heart caths. I: Paged university intern on-call, Rachid Starks, to assess site. Suggested pressure dressing be placed, which was done. Pt also recieved PRN dose of tylenol. A: Groin benzene still utility operator, but swelling unchanged. P: Watch site closely, offer hot packs for pain, as well as tylenol. [Signature] Author:Bonita Estrada (RN) [Signed 06-Feb-2007 22:30] documented in this encounter Plan of Treatment Upcoming Encounters Date Type Specialty Care Team Description 07/27/2022 Ancillary Procedure Cardiology Cordell Juarez MD [address] [place] [address] (Arleen valdes) 07/27/2022 Office Visit Cardiology Cordell Juarez MD [address] [place] [address] (Arleen valdes) documented as of this encounter Visit Diagnoses Not on filedocumented in this encounter
--- OUTSIDE RECORDS SUMMARY | 2022-04-10 10:37 | XMS_ITS | Encounter Summary ---
:2000 Author Organization [place] Address Critical access hospital0 [facility] [place] [address] Care Team Providers Name Role Phone Unavailable Primary Care Provider Unavailable Encounter Details Date Type Department Care Team Description 02/12/2007 Historic Transitional Living Specialist INTERFACED REPORT Interface, MD Jose Social History [...] Ancillary Procedure Cardiology Cordell Juarez MD [address] [place] [address] [address] [facility] [place] [address] (Wo rk) 07/27/2022 Office Visit Cardiology Cordell Juarez MD [address] [place], [place] [address] (Wo rk) documented as of this encounter Visit Diagnoses Not on filedocumented in this encounter
--- OUTSIDE RECORDS SUMMARY | 2022-04-10 10:37 | XMS_ITS | Encounter Summary ---
:2000 Author Organization [place] Address [facility] [place] [address] Care Team Providers Name Role Phone Unavailable Primary Care Provider Unavailable Encounter Details Date Type Department Care Team Description 02/06/2007 Historic Results INTERFACED REPORT Lucina Lovelace [facility] [id number] [place] [address] (Wo rk) Social History Tobacco Use [...] 07/27/2022 Ancillary Procedure Cardiology Cordell Juarez MD [facility] [address] [address] (Wo rk) 07/27/2022 Office Visit Cardiology Cordell Juarez MD [address] [place], [place] [address] (Wo rk) documented as of this encounter [...] RESULTS Atrial Rate 65 BPM RADIOLOGY RESULTS [place] Interval 150 ms RADIOLOGY RESULTS QRS Duration 82 ms RADIOLOGY RESULTS QT 400 ms RADIOLOGY RESULTS QTc 416 ms RADIOLOGY RESULTS P [place] 34 degrees RADIOLOGY RESULTS R AXIS -71 degrees RADIOLOGY RESULTS T [place] 71 degrees RADIOLOGY RESULTS Interpretation Poor data quality, interpretation may be adv ersely affected RADIOLOGY ECG * Pediatric ECG Analysis * RESULTS Sinus rhythm Left axis deviation Right ventricular hypertrophy T-wave inversion in Lateral leads Specimen Anatomical Collection Method Collection Time Receive d Time (Source) Location / / Volume Laterality 02/06/2007 3:01 PM 7 2:47 CDT PM CDT Lucina Osorio [place] ECG ORDERABLES Performing Organization Address City/State/ZIP Code Phon e Number RADIOLOGY RESULTS documented in this encounter Visit Diagnoses Not on filedocumented in this encounter
--- OUTSIDE RECORDS SUMMARY | 2022-04-10 10:37 | XMS_ITS | Encounter Summary ---
:2000 Author Organization [place] Address [facility] [place] [address] Care Team Providers Name Role Phone KomalStephen Primary Care Provider [facility] Primary Care Provider [phone] Mangus Zayas DO Primary Care Provider [phone] Magnus Zayas DO Unavailable [phone] Celeste Scales MD Unavailable Magnus Zayas DO Unavailable [phone] Magda Winchester MD Primary Care Provider Encounter Details Date Type Department Care Team Description 02/07/2007 [facility] Ignacio Solo [facility] DC ORDERS (Primary Clinic Meir DUPREE Dx) [address] [place], [place] [address] [phone] Social History Tobacco Use Types Packs/Day Years [...] Juarez MD [address] [place], [place] [address] (Wo rk) 07/27/2022 Office Visit Cardiology Cordell Juarez MD [address] [place], [place] [address] (Wo rk) documented as of this encounter Visit Diagnoses Diagnosis [facility] DC ORDERS - Primary documented in this encounter Additional Health Concerns Infection Onset Date Last Indicated Resolved Time Rule Out COVID-19 12/18/2019 12/18/2019 12/19/2019 3:4 2 PM CDT Rule Out COVID-19 12/21/2019 12/21/2019 12/22/2019 2:3 2 AM CDT documented as of this encounter Care Teams Plumbing Drafter Relationship Specialty Start Date End Date Stephen Sauceda PCP - General Pediatrics 03/06/17 06/24/19 [facility] [address] [place] [address] [facility] PCP - General 06/25/19 02/22/[address] [place] [address] Magnus Zayas, PCP - General Student in organized 02/23/20 09/17/[address] education/training program [address] [place], [place] [address] Magda Winchester PCP - General Family Medicine 09/18/21 MD [place] Magnus Zayas, Assigned PCP 02/28/2004/06 DO [address] [facility] [address] [place] [address] Celeste Scales MD Assigned PCP 11/10/20 11/19/[address] [address] Magnus Zayas, Assigned PCP 11/20/[address] DO [address] [id number] documented as of this encounter
--- OUTSIDE RECORDS SUMMARY | 2022-04-10 10:37 | XMS_ITS | Encounter Summary ---
:2000 Author Organization [place] Address [address] [place] [address] Care Team Providers Name Role Phone Unavailable Primary Care Provider Unavailable Reason for Visit Reason Onset Date Comments Infection 01/07/2007 Encounter Details Date Type Department Care Team Description 01/07/2007 Telephone [facility] Ignacio Solo MD Infection [place] [address] [facility] [address] [place] [address] [place] [address] [phone] Social History Tobacco Use Types Packs/Day Years [...] prior to starting abx. Mom is at [phone]. Mom states no temp at this time but has red inflamed areas with white heads that are usually pus filled-they have not broke open yet. Routing as high as mom wants this addressed MARIA E.Lelia Mendoza RN documented in this encounter Plan of Treatment Upcoming Encounters Date Type Specialty Care Team Description 07/27/2022 Ancillary Procedure Cardiology Cordell Juarez MD [address] [facility] [address] [place], [place] [address] (Arleen valdes) 07/27/2022 Office Visit Cardiology Cordell Juarez MD [address] [place] [address] [address] [place], [place] [address] (Arleen valdes) documented as of this encounter Visit Diagnoses Not on filedocumented in this encounter
--- OUTSIDE RECORDS SUMMARY | 2022-04-10 10:37 | XMS_ITS | Encounter Summary ---
:2000 Author Organization [place] Address [address] [place] [address] Care Team Providers Name Role Phone Unavailable Primary Care Provider Unavailable Encounter Details Date Type Department Care Team Description 02/06/2007 Delivery Summary Jostin Winchester (Continuous Improvement Facilitator) XXX RESIGNED XXX 2450 [facility] [place] [address] (Wo rk) Social History Tobacco Use Types [...] is to follow up with his primary vmware engineer, Dr. Cordell Juarez in about 6 weeks' [...] MD MT: darvin Name: PIERRE BILLS Account: [id number] : 2000 Admit Date: [id number] Discharge Date: 02/07/2007 Document: [id number] cc: Cordell Solo MD documented in this encounter Plan of Treatment Upcoming Encounters Date Type Specialty Care Team Description 07/27/2022 Ancillary Procedure Cardiology Cordell Juarez MD [address] [facility] [address] [place], [place] [address] (Wo rk) 07/27/2022 Office Visit Cardiology Cordell Juarez MD [address] [facility] [address] [place], [place] [address] (Wo rk) documented as of this encounter Visit Diagnoses Not on filedocumented in this encounter
--- OUTSIDE RECORDS SUMMARY | 2022-04-10 10:37 | XMS_ITS | Encounter Summary ---
:2000 Author Organization [place] Address [address] [place] [address] Care Team Providers Name Role Phone Unavailable Primary Care Provider Unavailable Encounter Details Date Type Department Care Team Description 02/06/2007 Results Only [facility] Unknown, [facility]ider Hospital Results Social [...] Ancillary Procedure Cardiology Cordell Juarez MD [address] [place] [address] (Wo rk) 07/27/2022 Office Visit Cardiology Cordell Juarez MD [address] [place] [address] (Wo rk) documented as of this encounter Procedures Procedure Name Priority Date/Time Associated Diagnosis Comme [facility] ZC ECHO Routine 02/06/2007 11:15 AM Results for this HEART,TRANSESOPH-AC CDT procedur e are in Q,INTERP the results section. documented in this encounter Results ECHO HEART,ORLIN-ACQ,INTERP (02/06/2007 11:15 AM CDT) Anatomical Region Laterality Modality Other Specimen (Source) Anatomical Collection Method Collection Time Re ceived Time Location / / Volume Laterality 02/06/2007 11:15 AM CDT Impressions 02/07/2007 9:14 PM CDT PEDIATRIC TRANSESOPHAGEAL ECHOCARDIOGRAM ?? [facility] E chocardiogram Lab ? CONCLUSION: ?? Single [...] within the device. ?? Artemio Silva MD-Pager [phone] ?? Gayathri Ayala MD-Pager [phone] ?? Cordell Juarez MD-[phone] ?? Jayson Bailey MD-Pager [phone] Chip MD Nikolay-Pager [phone] or Vilma ?? MD Alka-Pager [phone] ?? Provider Unknown SPECIAL IMAGING STUDIES documented in this encounter Visit Diagnoses Not on filedocumented in this encounter
--- OUTSIDE RECORDS SUMMARY | 2022-04-10 10:37 | XMS_ITS | Encounter Summary ---
:2000 Author Organization [place] Address [facility] [place] [address] Care Team Providers Name Role Phone Unavailable Primary Care Provider Unavailable Encounter Details Date Type Department Care Team Description 02/07/[address] [facility] Magnus Sears MD [facility] XXX RESIGNED XXX Results [address] [facility] BAILEE [address] [place], [place] [address] (Wo rk) Social History Tobacco Use Types [...] Cordell Juarez MD [facility]0 [place] [address] [address] (Wo rk) 07/27/2022 Office Visit Cardiology Cordell Juarez MD [address] [place] [address] [place], [place] [address] (Wo rk) documented as of this encounter Procedures Procedure Name Priority Date/Time Associated Diagnosis Commnafisa [facility] ZZHC ECHO Routine 02/07/2007 2:10 PM Results f or this XTNEHEMIAS SMITH CDT procedure are in ANOM,COMPLETE the results section. documented in this encounter Results ECHO MAURICIOHORACICALMAG ANOM,COMPLETE (02/07/2007 2:10 PM CDT) Component Value Ref Test Analysis Performed At [facility] Range Method Time Signature IMAGECAST PEDIATRIC ECHOCARDIOGRAM ?? RA DIOLOGY RESULT [facility] ??Echocardiogram Lab RESULTS ? Age: ??1 ? Wt: ? Ht: ? BSA: ? BP: ? Xcelera ? Lithopress Operator: ??BF INDICATION: ?? A cardiac ultrasound study [...] are not obtained. ?? Artemio Silva MD-Pager [phone] ?? Gayathri Ayala MD-Pager [phone] ?? Jorge Link MD-Pager [phone] or [phone] Cordell Juarez MD-Pager [phone] ?? Jayson Bailey MD-Pager [phone] Vilma Rucker MD-Pager [phone] Specimen (Source) Anatomical Collection Method Collection Time Re ceived Time Location / / Volume Laterality 02/07/2007 2:10 PM CDT Magnus Sears MD PROCEDURES Performing Organization Address City/State/ZIP Code Phon e Number RADIOLOGY RESULTS documented in this encounter Visit Diagnoses Not on filedocumented in this encounter
--- OUTSIDE RECORDS SUMMARY | 2022-04-10 10:37 | XMS_ITS | Encounter Summary ---
:2000 Author Organization [place] Address [address] [place] [address] Care Team Providers Name Role Phone Unavailable Primary Care Provider Unavailable Encounter Details Date Type Department Care Team Description 02/23/2007 [facility] [address] [place], [place] [address] (Wo rk) Social History [...] Ancillary Procedure Cardiology Cordell Juarez MD [address] [place] [id number] (Wo rk) 07/27/2022 Office Visit Cardiology Cordell Juarez MD [facility] [place], [place] [address] (Wo rk) documented as of this encounter Procedures Procedure Name Priority Date/Time Associated Diagnosis Comme [facility] Z LT X-RAY WRIST Routine 02/23/2007 12:19 [...]
--- OUTSIDE RECORDS SUMMARY | 2022-04-10 10:37 | XMS_ITS | Encounter Summary ---
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; [address] HYPOPLASTIC LEFT [place] [address] [phone] Social History Tobacco Use Types Packs/Day Years [...] cm (3' 9.75) 02/04/2007 8:00 AM CDT Ptnuie-nii-Tceiqs Percentile 20.18 % 02/04/2007 8:00 AM CDT Growth Chart: [facility] (Boys, 2-20 Years) Body Mass Index 14.44 02/04/2007 8:00 AM CDT Body Mass Index Percentile 19.05 % 02/04/2007 8:00 AM CD T Growth Chart: [facility] (Boys, 2-20 Years) documented in this encounter Progress Notes Dominga Maya - 02/04/2007 8:31 AM CDT Date of exam: 02/04/2007 Date of surgery: 02/06/07 Surgeon: [facility] Procedure: heart surgery Expected anesthesia method: General [...] 7 days prior to surgery. Captopril and Groveton leaf FAMILY HISTORY: Not known PAST HISTORY: Recent hx of dental abscesses followed closely by dentist. Has had hx of excessive bruising after surgeries but no other complications. Hx of asthma now resolved for several years. Past history negative for allergies, croup, prior sedation or anesthesia reactions, hepatitis, HIV, chickenpox. No contagious contact or chickenpox, measles, mumps, or Nepali measles exposures. Immunizations are up to date. [...] from dental concerns. Ignacio Solo MD 02/04/2007 [facility], [address] [place] [address]. 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
--- OUTSIDE RECORDS SUMMARY | 2022-04-10 10:37 | XMS_ITS | Encounter Summary ---
:2000 Author Organization [place] Address [facility] [place] [address] Care Team Providers Name Role Phone Unavailable Primary Care Provider Unavailable Encounter Details Date Type Department Care Team Description 02/06/[address] [facility] MD [facility] XXX RESIGNED XXX [address] [place] [address] [place], [place] [address] [place] [address] [place], [place] [phone] (Wo rk) [address] [phone] Social History Tobacco Use Types Packs/Day Years [...] Ancillary Procedure Cardiology Cordell Juarez MD [address] [place] [address] [address] [place] [address] (Wo rk) 07/27/2022 Office Visit Cardiology Cordell Juarez MD [address] [facility] [address] [place] [address] (Wo rk) documented as of this encounter [...] Basic metabolic panel (02/06/2007 8:00 AM CDT) [facility] gist Method Time Signature Sodium 142 [...] BLOOD ORDERABLES Performing Organization Address City/[facility]/ZIP Code Phon e Number MISYS Crossmatch red cells (02/06/2007 8:00 AM CDT) [facility] Method Time Signature ABO AB MISYS RH(D) Pos MISYS Antibody Neg MISYS Screen Blood Red Cells MISYS Component Type Units Ordered 1 MISYS Specimen 02/09/2007 MISYS Expires Unit Number [id number] MISYS Blood Red Blood MISYS Component Cells Type Leukocyte Reduced Status of REL FROM MISYS Unit ALLOC Specimen Anatomical Collection Method Collection Time Receive d Time (Source) Location / / Volume Laterality 02/06/2007 8:00 AM 7 8:04 CDT AM CDT Jostin Sal MD LAB - BLOOD BANK PRODUCT O RDER Performing Organization Address City/[facility] Code Phon e Number MISYS documented in this encounter Visit Diagnoses Not on filedocumented in this encounter
--- OUTSIDE RECORDS SUMMARY | 2022-04-10 10:37 | XMS_ITS | Encounter Summary ---
:2000 Author Organization [place] Address [facility] [place] [address] Care Team Providers Name Role Phone Unavailable Primary Care Provider Unavailable Encounter Details Date Type Department Care Team Description 02/23/2007 Emergency room Evie Troy MD [facility] [address] [place], [place] [address] (Wo rk) Social History [...] no other complaints. The mother called the it solutions sales consultant at [facility] and she was told to bring him [...] [id number] Name: PIERRE BILLS MRN: [id number] Account: [id number] : 2000 Visit Date: 02/23/2007 Document: [id number] documented in this encounter Plan of Treatment Upcoming Encounters Date Type Specialty Care Team Description 07/27/2022 Ancillary Procedure Cardiology Cordell Juarez MD [address] [place] [address] (Wo rk) 07/27/2022 Office Visit Cardiology Cordell Juarez MD [address] [place] [address] (Wo rk) documented as of this encounter Visit Diagnoses Not on filedocumented in this encounter
--- OUTSIDE RECORDS SUMMARY | 2022-04-10 10:38 | XMS_ITS | Encounter Summary ---
:2000 Author Organization [place] Address [address] [place] [address] Care Team Providers Name Role Phone Unavailable Primary Care Provider Unavailable Reason for Visit Reason Comments Imm/Inj Encounter Details Date Type Department Care Team Description 06/07/2005 Allied Health/Nurse Health [facility] Imm/Inj Visit [place] [address] [place] [address] Social History Tobacco Use [...] Ancillary Procedure Cardiology Cordell Juarez MD [facility] [place] [address] [address] (Arleen valdes) 07/27/2022 Office Visit Cardiology Cordell Juarez MD [address] [facility] [address] [place], [place] [address] (Arleen valdes) documented as of this encounter Visit Diagnoses Diagnosis Need for prophylactic vaccination and in oculation against influenza - Primary documented in this encounter
--- OUTSIDE RECORDS SUMMARY | 2022-04-10 10:38 | XMS_ITS | Encounter Summary ---
:2000 Author Organization [place] Address [facility]0 [facility] [place] [address] Care Team Providers Name Role Phone Unavailable Primary Care Provider Unavailable Encounter Details Date Type Department Care Team Description 11/20/2006 Results Only [facility] Rudy Juarez MD Hospital Results [address] [place], [place] [address] (Wo rk) Social History Tobacco Use Types [...] Ancillary Procedure Cardiology Cordell Juarez MD [address] [place] [id number] (Wo rk) 07/27/2022 Office Visit Cardiology Cordell Juarez MD [address] [place] [id number] (Wo rk) documented as of this encounter Procedures Procedure Name Priority Date/Time Associated Diagnosis Commnafisa [facility] ZZHC ECHO Routine 11/20/2006 9:55 AM Results f or this XTHORACICNEHEMIAS CDT procedure are in ANOM,COMPLETE the results section. documented in this encounter Results ECHO XTHORACICNEHEMIAS ANOM,COMPLETE (11/20/2006 9:55 AM CDT) Component Value Ref Test Analysis Performed At [facility] Range Method Time Signature IMAGECAST PEDIATRIC ECHOCARDIOGRAM ?? RA DIOLOGY RESULT [facility] ??Echocardiogram Lab RESULTS ? Age: ??1 ? Wt: ? Ht: ? BSA: ? BP: ? Xcelera ? Intermediate School Teacher: ??KB INDICATION: ?? A cardiac ultrasound study [...] was not obtained. ?? Artemio Silva MD-Pager [phone] ?? Gayathri Ayala MD-Pager [phone] ?? Jorge Link MD-Pager [phone] or [phone] Cordell Juarez MD-Pager [phone] ?? Jayson Bailey MD-Pager [phone] Vilma Rucker MD-Pager [phone] Specimen (Source) Anatomical Collection Method Collection Time Re ceived Time Location / / Volume Laterality 11/20/2006 9:55 AM CDT Cordell Juarez MD PROCEDURES Performing Organization Address City/State/ZIP Code Phon e Number RADIOLOGY RESULTS documented in this encounter Visit Diagnoses Not on filedocumented in this encounter
--- OUTSIDE RECORDS SUMMARY | 2022-04-10 10:38 | XMS_ITS | Encounter Summary ---
:2000 Author Organization [place] Address [facility] [place] [address] Care Team Providers Name Role Phone Unavailable Primary Care Provider Unavailable Reason for Referral Specialty Diagnoses / Procedures Referred By Contact Refer red To Contact Catarina Cottrell MD [facility] [address] [place], [place] [address] Referral ID Status Reason Start Date Expiration Date Visits Requ ested Visits Authorized Encounter Details Date Type Department Care Team Description 03/05/2005 Orders Only [facility] Catarina Cottrell SIS NOT YET Clinic Meir Pederson MD DEFINED (Primary Dx) [address] [facility] [place], [place] [address] [address] [place], [place] [phone] [address] (Wo rk) Social History Tobacco Use [...] MD [address] [facility] [place] [address] (Wo rk) 07/27/2022 Office Visit Cardiology Cordell Juarez MD [address] [facility] [address] [place] [address] (Wo rk) documented as of this encounter [...]
--- OUTSIDE RECORDS SUMMARY | 2022-04-10 10:38 | XMS_ITS | Encounter Summary ---
:2000 Author Organization [place] Address [address] [place] [address]. [place] [address] Care Team Providers Name Role Phone Unavailable Primary Care Provider Unavailable Encounter Details Date Type Department Care Team Description 11/07/2005 Results Only [facility] Cordell Juarez MD [address] Results [place] [phone] (Wo rk) Social History Tobacco Use Types [...] 07/27/2022 Ancillary Procedure Cardiology Cordell Juarez MD [address] [place] [phone] (Wo rk) 07/27/2022 Office Visit Cardiology Cordell Juarez MD [address] [place] [address] [phone] (Wo rk) documented as of this encounter [...] 11/13/2005 1:43 PM CDT PEDIATRIC ECHOCARDIOGRAM ?? [facility] ? ?Echocardiogram Lab ? Age: ??1 ? W t: ? Ht: ? BSA: ? BP: ? Xcelera ? Lard Maker: ??KB INDICATION: ?? A cardiac ultrasound study [...] of 4 mmHg. ?? Artemio Silva MD-Pager [phone] ?? Gayathir Ayala MD-Pager [phone] ?? Jorge Link MD-Pager [phone] or Cordell Juarez MD-Pager [phone] ?? Jayson Bailey MD-Pager [phone] Aga Rucker MD-Pager [phone] Cordell Juarez MD SPECIAL IMAGING STUDIES documented in this encounter Visit Diagnoses Not on filedocumented in this encounter
--- OUTSIDE RECORDS SUMMARY | 2022-04-10 10:38 | XMS_ITS | Encounter Summary ---
:2000 Author Organization [place] Address [facility] [place] [address] Care Team Providers Name Role Phone Unavailable Primary Care Provider Unavailable Encounter Details Date Type Department Care Team Description 07/25/2004 Historic Assembly Press Operator INTERFACED REPORT Camila Moore Social History Tobacco Use Types Packs/Day Years Used Date Smoking Tobacco: Never Assessed Sex Assigned at Date Recorded Male 03/09/2019 1:21 PM CDT documented as of this encounter Progress Notes Interface, Assembly Press Operator - 05/23/2011 4:38 AM OVERHEAD LINE WORKER : [birth year] CHIEF COMPLAINT: Head laceration. HISTORY OF PRESENT ILLNESS: The patient is a 4-year-old [place] male who fell backwards at home, hit [...] EPIDEMIOLOGIC HISTORY: The patient attends school for Collection [employer] and there has been no [...] [id number] _ KAILEE MOORE MD MT: Document: [id number] CC: KAILEE MOORE MD [place], [place] Name: MR#: PIERRE BILLS -[id number] EMERGENCY ROOM ENCOUNTER Page 2 of 2 LCN: RONN DSC: 07/25/2004 [place], [place] Name: MR#: PIERRE BILLS [id number] : Admit Date: Account #: 2000 07/25/2004 [id number] Doctor: KAILEE MOORE MD EMERGENCY ROOM ENCOUNTER Page 1 of 2 HEAD LINE WORKER documented in this encounter Plan of Treatment Upcoming Encounters Date Type Specialty Care Team Description 07/27/2022 Ancillary Procedure Cardiology Cordell Juarez MD [address] [place] [address] (Wo rk) 07/27/2022 Office Visit Cardiology Cordell Juarez MD [address] [place] [address] (Wo rk) documented as of this encounter Visit Diagnoses Not on filedocumented in this encounter
--- OUTSIDE RECORDS SUMMARY | 2022-04-10 10:38 | XMS_ITS | Encounter Summary ---
:2000 Author Organization [place] Address [address] [place] [address] Care Team Providers Name Role Phone Unavailable [...] Ancillary Procedure Cardiology Cordell Juarez MD [address] [place] [phone] (Wo rk) 07/27/2022 Office Visit Cardiology Cordell Juarez MD [address] [place], [place] [address] [place], [place] [address]874 (Wo rk) documented as of this encounter [...] RESULTS QTc 407 ms RADIOLOGY RESULTS P [place] 50 degrees RADIOLOGY RESULTS R AXIS -91 degrees RADIOLOGY RESULTS T [place] 68 degrees RADIOLOGY RESULTS Interpretation * Pediatric [...]
--- OUTSIDE RECORDS SUMMARY | 2022-04-10 10:38 | XMS_ITS | Encounter Summary ---
:2000 Author Organization [place] Address [address] [place] [address] Care Team Providers Name Role Phone Unavailable Primary Care Provider Unavailable Encounter Details Date Type Department Care Team Description 04/25/2005 Telephone [facility] Tara lowry, Catarina Pederson MD [facility] [address] [place] [address] [phone] [place] [address] (Wo rk) Social History Tobacco [...] in for flu injection .Juli Pfeiffer LPN NCE ASSOCIATE documented in this encounter Plan of Treatment Upcoming Encounters Date Type Specialty Care Team Description 07/27/2022 Ancillary Procedure Cardiology Cordell Juarez MD [address] [facility] [address] [place], [place] [phone] (Wo rk) 07/27/2022 Office Visit Cardiology Cordell Juarez MD [address] [place], [place] [address] (Wo rk) documented as of this encounter Visit Diagnoses Not on filedocumented in this encounter
--- OUTSIDE RECORDS SUMMARY | 2022-04-10 10:38 | XMS_ITS | Encounter Summary ---
:2000 Author Organization [place] Address [address] [place] [address] Care Team Providers Name Role Phone Unavailable Primary Care Provider Unavailable Encounter Details Date Type Department Care Team Description 02/27/2006 Results Only [facility] Jostin Wayne, [place] [employer] Results MD [facility] [address] [place], [place] [address] Social History Tobacco Use [...] Procedure Cardiology Cordell Juarez MD [facility] [place] [address] [address] (Wo rk) 07/27/2022 Office Visit Cardiology Cordell Juarez MD [address] [address] [place], [place] [phone] (Arleen rk) documented as of this encounter [...]
--- OUTSIDE RECORDS SUMMARY | 2022-04-10 10:38 | XMS_ITS | Encounter Summary ---
:2000 Author Organization [place] Address [facility] [place] [address] Care Team Providers Name Role Phone Unavailable Primary Care Provider Unavailable Reason for Referral Office Workup No CT/MRI (Routine) - Closed Specialty Diagnoses / Procedures Referred By Contact Refer red To Contact Diagnoses Routine or ritual circumcision Catarina Cottrell MD [facility] PED[facility]ATRIC [facility] [address] [place] [address] [address] [place] [phone] Phone: [phone] Referral ID Status Reason Start Date Expiration Date Visits Requ ested Visits Authorized [id number] Closed 01/03/2005 06/16/2005 1 3 Reason for Visit Reason Comments Physical Encounter Details Date Type Department Care Team Description 01/03/2005 Office Visit [facility] Catarina Kathleen CHILD HEALTH EXAM (Primary Dx); Clinic Meir Pederson MD CONGEN HEART ANOMALY NEC; [address] [facility] ROUTINE CIRCUMCISION [facility] [place], [place] [address] [address] [place], [place] [phone] [address] (Wo rk) Social History Tobacco Use [...] cm (3' 4.5) 01/03/2005 6:00 PM CDT Itvdpr-rmo-Jiawak Percentile 44.99 % 01/03/2005 6:00 PM CDT [...] Child lives with: mother, father and sister career agent: Home with family member: mother Recent family changes/social stressors: recent move Family History: No changes since last physical and Jude is adopted Language(s) spoken at home: Thai ENVIRONMENTAL RISK ASSESSMENT: Is your child around anyone who smokes? NO Car seat/ booster seat? YES Bike/sport helmet? YES DEVELOPMENTAL/Behavioral Screening form: Form given. VISION: seen by ophtho HEARING: no problems REQUIRED VITAL SIGNS COMPLETED: BP 94/58 Pulse 88 Temp (Src) 98.2 (Oral) Ht 3' 4.5 (1.03m) Wt 36 lbs (16.3kg) 11.51% of growth percentile based on uyuywad-fgm-xyu. 18.30% of growth percentile based on gbuckf-xon-yor. 49.88% of growth percentile based on BMI-for-age. [...] problem (has had 3 open heart surgeries. Stanton Pillager DAILY ACTIVITIES: NUTRITION: good appetite, eats variety [...] new home, mom is .ADAN VAUGHAN LPN [place] Prescreen: Form not completed at time roomed. 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
--- OUTSIDE RECORDS SUMMARY | 2022-04-10 10:38 | XMS_ITS | Encounter Summary ---
:2000 Author Organization [place] Address [facility] [place] [address] Care Team Providers Name Role Phone Unavailable Primary Care Provider Unavailable Encounter Details Date Type Department Care Team Description 04/03/2006 Discharge Summary Sukhdeep Dodd MD (Glass Mechanic) [facility] [address] [place], [place] [address] Social History Tobacco Use Types Packs/Day Years Used Date Smoking Tobacco: Never Comments: none at home Alcohol Use Standard Drinks/Week Comments Not Asked 0 (1 standard drink = 0.6 oz pure alcoho l) Sex Assigned at Date Recorded Male 03/09/2019 1:21 PM CDT documented as of this encounter Progress Notes Jostin Dodd - 04/15/2006 1:40 PM APPLICATION SECURITY CONSULTANT FINAL ADMITTING DIAGNOSIS: Malrotation. DISCHARGE DIAGNOSIS: Malrotation. OPERATIVE PROCEDURES PERFORMED: [place] procedure on 04/03/2006. OPERATIVE SURGEON: Jostin Dodd [...] the patient was followed by an outside glass vial filler for his cardiac history. The patient was on Digoxin 80 mg b.i.d. and Enalapril, which he was taking through his NG tube. The glass vial filler's recommendations were to watch the heart rate, not intervene unless theblood pressure dropped or he became otherwise unstable. His medications were continued at the request of the glass vial filler at the current dosages, and the patient [...] betina Name: PIERRE BILLS MRN: [id number] Account: [id number] : 2000 Admit Date: [id number] Discharge Date: 04/07/2006 Document: [id number] ICATION SECURITY CONSULTANT documented in this encounter Plan of Treatment Upcoming Encounters Date Type Specialty Care Team Description 07/27/2022 Ancillary Procedure Cardiology Cordell Juarez MD [address] [facility] [address] [place] [address] (Wo rk) 07/27/2022 Office Visit Cardiology Cordell Juarez MD [address] [place] [address] [place] [address] (Wo rk) documented as of this encounter Visit Diagnoses Not on filedocumented in this encounter
--- OUTSIDE RECORDS SUMMARY | 2022-04-10 10:38 | XMS_ITS | Encounter Summary ---
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 Ignacio Solo CONG EN HEART ANOMALY Clinic Meir DUPREE NEC (Primary Dx) [address] [place] [address] [place] [place] [phone] Social History Tobacco Use Types Packs/Day Years Used Date Smoking Tobacco: Never Comments: none at home Alcohol Use Standard Drinks/Week Comments Not Asked 0 (1 standard drink = 0.6 oz pure alcoho l) Sex Assigned at Date Recorded Male 03/09/2019 1:21 PM CDT documented as of this encounter Nursing Notes 12/31/2006 12:00 PM CDT >> DINO SIMPSON 12/31/2006 3:59 pm Per [employer] message pt referred to [facility] - Infectious Disease (Dr. Case) who only sees Infectious Disease patients at [facility]. Order sent for co-sign. This does not consititute a referral for service as pt has open access P1 product which pays at whatever tier level benefit they participate with. 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
--- OUTSIDE RECORDS SUMMARY | 2022-04-10 10:38 | XMS_ITS | Encounter Summary ---
:2000 Author Organization [place] Address [address] [place] [address] Care Team Providers Name Role Phone Unavailable Primary Care Provider Unavailable Reason for Visit Reason Comments Ear Problem Encounter Details Date Type Department Care Team Description 09/21/2004 Office Visit [facility] Randy Hernandez, ACU TE URI NOS Clinic Meir DUPREE (Primary Dx) [address] [place] [address] [place] [address] [place] [phone] (Wo rk) Social History [...] 07/27/2022 Ancillary Procedure Cardiology Cordell Juarez MD [address] [facility] [address] [place], [place] [address] (Wo rk) 07/27/2022 Office Visit Cardiology Cordell Juarez MD [address] [facility] [address] [place] [address] (Wo rk) documented as of this encounter Visit Diagnoses Diagnosis Acute upper respiratory infections of un specified site - Primary documented in this encounter
--- OUTSIDE RECORDS SUMMARY | 2022-04-10 10:38 | XMS_ITS | Encounter Summary ---
:2000 Author Organization [place] Address [address] [place] [address] Care Team Providers Name Role Phone Unavailable [...] Ancillary Procedure Cardiology Cordell Juarez MD [address] [place] [address] (Wo rk) 07/27/2022 Office Visit Cardiology Cordell Juarez MD [address] [place] [address] [address] (Wo rk) documented as of this encounter [...] RESULTS Atrial Rate 63 BPM RADIOLOGY RESULTS AL Interval 146 ms RADIOLOGY RESULTS QRS Duration 80 ms RADIOLOGY RESULTS QT 384 ms RADIOLOGY RESULTS QTc 392 ms RADIOLOGY RESULTS P [place] 0 degrees RADIOLOGY RESULTS R AXIS -83 degrees RADIOLOGY RESULTS T [place] 56 degrees RADIOLOGY RESULTS Interpretation * Pediatric [...]
--- OUTSIDE RECORDS SUMMARY | 2022-04-10 10:38 | XMS_ITS | Encounter Summary ---
:2000 Author Organization [place] Address [facility] [place] [address] Care Team Providers Name Role Phone Unavailable Primary Care Provider Unavailable Encounter Details Date Type Department Care Team Description 12/04/2006 Historic Results INTERFACED REPORT Jagdeep Maloney ra, RN [place] [facility] [address] [facility] [place] [address] (Wo rk) Social History Tobacco Use Types [...] Ancillary Procedure Cardiology Cordell Juarez MD [address] [place], [place] [address] (Wo rk) 07/27/2022 Office Visit Cardiology Cordell Juarez MD [address] [place], [place] [address] (Wo rk) documented as of this encounter [...]
--- OUTSIDE RECORDS SUMMARY | 2022-04-10 10:38 | XMS_ITS | Encounter Summary ---
:2000 Author Organization [place] Address [facility] [place] [address] Care Team Providers Name Role Phone Unavailable [...] as of this encounter Progress Notes Interface, Staff Veterinarian - 04/28/2005 11:59 PM DRAPERY CUTTER MACHINE PRELIMINARY CHIEF COMPLAINT: Bleeding from circumcision. HISTORY OF PRESENT ILLNESS: Pierre is a 5-year-old [place] male who was circumcised the past Saturday. [...] HISTORY: Unknown. The patient is adopted from [place]. SOCIAL HISTORY: In the household are living mother, father, patient and 3 siblings. There is no smoking and no pets. EPIDEMIOLOGIC HISTORY: The patient attends daycare. There is no recent traveling abroad. PHYSICAL EXAMINATION: VITAL SIGNS: Temperature 98, heart rate 113, respirations 20, oxygen saturation 87% on room air (normal, patient's baseline) and weight is 18.5 kg. GENERAL: Reveals a slender 5-month-old [place] male, cooperating. HEENT: Head is normocephalic. Ears, [...] the day and consult Dr. Yoder (Pediatric Estate Planning Paralegal Oncologist) on phone number . SUGEY MOORE MD MT: TIMA Name: PIERRE BILLS MRN: [id number] Account: [id number] : 2000 Visit Date: 04/28/2005 Document: [id number] ERY CUTTER MACHINE documented in this encounter Plan of Treatment Upcoming Encounters Date Type Specialty Care Team Description 07/27/2022 Ancillary Procedure Cardiology Cordell Juarez MD [address] [facility] [address] [place] [address] (Wo lucio) 07/27/2022 Office Visit Cardiology Cordell Juarez MD [address] [place] [address] (Arleen valdes) documented as of this encounter Visit Diagnoses Not on filedocumented in this encounter
--- OUTSIDE RECORDS SUMMARY | 2022-04-10 10:38 | XMS_ITS | Encounter Summary ---
:2000 Author Organization [place] Address [address] [facility] [place] [address] Care Team Providers Name Role Phone Unavailable Primary Care Provider Unavailable Encounter Details Date Type Department Care Team Description 09/27/2004 Historic Results [facility] Alden Juarez MD Cardiology [address] [facility] [address] [place] [address] [place], [place] [address] (Arleen valdes) Social History Tobacco Use Types Packs/Day Years Used Date Smoking Tobacco: Never Assessed Sex Assigned at Date Recorded Male 03/09/2019 1:21 PM CDT documented as of this encounter Plan of Treatment Upcoming Encounters Date Type Specialty Care Team Description 07/27/2022 Ancillary Procedure Cardiology Cordell Juarez MD [facility] [address] [place], [place] [address] (Arleen rk) 07/27/2022 Office Visit Cardiology Cordell Juarez MD [address] [place], [place] [address] (Arleen rk) documented as of this encounter [...] Comprehensive metabolic panel (09/27/2004 2:38 PM CDT) [facility] Connect Method Time Signature Sodium 140 133 - [...] differential and platelet (09/27/2004 2:38 PM CDT) [facility] Connect Method Time Signature MCV 79 70 - [...]
--- OUTSIDE RECORDS SUMMARY | 2022-04-10 10:38 | XMS_ITS | Encounter Summary ---
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 CARD[facility] CLIN[facility] AND SP CTR [address] [place] [address] [place], [place] [address] [place] [address] Phone: [phone] Referral ID Status Reason Start Date Expiration Date Visits Requ ested Visits Authorized [id number] Closed 08/01/2004 06/16/2005 1 4 INUM POOL INSTALLER Reason for Visit Reason Comments Suture Removal 3 sutures - back of head Encounter Details Date Type Department Care Team Description [facility]Primary Dx[facility] Clinic Meir Pederson MD OPEN WOUND OF SCALP; [address] [facility] ATTEN-DE LEON RG DRESSNG/SUTUR [facility] [place], [place] [address] [address] [place], [place] [phone] [address] (Wo rk) Social History Tobacco Use Types [...] 15.9 kg (35 lb) 08/01/2004 2:30 PM ALUMINUM POOL INSTALLER Height 99.4 cm (3' 3.13) 08/01/2004 2:30 PM ALUMINUM POOL INSTALLER Oeaier-tvn-[place] Percentile 60.67 % 08/01/2004 2:30 PM ALUMINUM POOL INSTALLER Growth Chart: [facility] (Boys, 2-20 Years) Body Mass Index 16.07 08/01/2004 2:30 PM ALUMINUM POOL INSTALLER Body Mass Index Percentile 67.90 % 08/01/2004 2:30 PM CS T Growth Chart: [facility] (Boys, 2-20 Years) documented in this encounter Progress Notes Catarina Ruiz - 08/06/2004 5:17 PM CST Jude Bills is a 4 year old male here with mother with concerns regarding suture removal. hit headon coffee table, sutured at [facility] one week ago. NO loc at the time of injury. New patient to clinic. PMH of hypoplastic left heart, s/p fontan. Needs cardioogy follow up in one month and needs new log operations coordinator. Objective: Ht 3' 3.13 (0.99m) Wt 35 lbs (15.9kg) General: alert, active and cooperative Head: 3 sutures placed right occiput Resp: cta bilateral CV: regular rate and rhythm no murmurs ASSESSMENT: suture removal congential heart disease PLAN: sutures removed without problems referral to cardiology given. INUM POOL INSTALLER documented in this encounter Nursing Notes 08/01/2004 [...] Cardiology Cordell Juarez MD [address] [place], [place] [address] (Wo rk) 07/27/2022 Office Visit Cardiology Cordell Juarez MD [address] [facility] [place], [place] [address] (Wo rk) documented as of this encounter [...]
--- OUTSIDE RECORDS SUMMARY | 2022-04-10 10:38 | XMS_ITS | Encounter Summary ---
:2000 Author Organization [place] Address [address] [facility] [place] [address] Care Team Providers Name Role Phone Unavailable Primary Care Provider Unavailable Reason for Visit Reason Onset Date Comments Patient Request 05/31/2005 Nasal flu vaccine av ailable? Employee health has extra vaccine Encounter Details Date Type Department Care Team Description 05/31/2005 Telephone [facility] Catarina Cottrell Request (N[facility]al [facility] [place] MD [place] flu vaccine available? [address] [facility] [place] [facility] extra vaccine) [place], [place] [address] [address] [place] [address] (Wo rk) Social History Tobacco [...] PM CST Mom advised. Yessi Hernandez RN RIAL CONTROL MANAGER Telephone Encounter - Yessi Hernandez - 06/01/2005 1:33 PM CST Paged mom to call clinic. Yessi Hernandez RN RIAL CONTROL MANAGER Telephone Encounter - Catarina Ruiz - 05/31/2005 8:07 PM CST nasal flu vaccine is not available RIAL CONTROL MANAGER Telephone Encounter - Екатерина Lunsford - 05/31/2005 10:35 AM CST Mother calls. Last year,she lived elsewhere and children all were given flu mist vaccine through [facility]. Mom would prefer this be given to her children. Apparently,nasal flu mist was ordered through [facility] services for those who wanted it. Mother [...] RN Mom understands PMD will return tomorrow. RIAL CONTROL MANAGER documented in this encounter Plan of Treatment Upcoming Encounters Date Type Specialty Care Team Description 07/27/2022 Ancillary Procedure Cardiology Cordell Juarez MD [address] [place], [place] [address] (Wo rk) 07/27/2022 Office Visit Cardiology Cordell Juarez MD [address] [place], [place] [address] (Wo rk) documented as of this encounter Visit Diagnoses Not on filedocumented in this encounter
--- OUTSIDE RECORDS SUMMARY | 2022-04-10 10:38 | XMS_ITS | Encounter Summary ---
:2000 Author Organization [place] Address [facility] [place] [address] Care Team Providers Name Role Phone Unavailable [...] 07/27/2022 Ancillary Procedure Cardiology Cordell Juarez MD [address] [place] [id number] (Wo rk) 07/27/2022 Office Visit Cardiology Cordell Juarez MD [address] [place] [phone] (Wo rk) documented as of this encounter Procedures Procedure Name Priority Date/Time Associated Comments Diagnosis VON WILLEBRAND ANTIGEN Routine 04/28/2005 10:15 R esults for this PM RESEARCH COORDINATOR procedure are i n the results section. THROMBIN TIME Routine 04/28/2005 10:15 Results fo r this PM RESEARCH COORDINATOR procedure are i n the results section. RISTOCETIN COFACTOR Routine 04/28/2005 10:15 Resu lts for this PM RESEARCH COORDINATOR procedure are i n the results section. HEPATIC FUNCTION PANEL STAT 04/28/2005 10:15 R esults for this PM RESEARCH COORDINATOR procedure are i n the results section. FACTOR 9 ASSAY STAT 04/28/2005 10:15 Results f or this PM RESEARCH COORDINATOR procedure are i n the results section. FACTOR 8 ASSAY STAT 04/28/2005 10:15 Results f or this PM RESEARCH COORDINATOR procedure are i n the results section. FACTOR 5 ASSAY STAT 04/28/2005 10:15 Results f or this PM RESEARCH COORDINATOR procedure are i n the results section. FACTOR 2 ASSAY STAT 04/28/2005 10:15 Results f or this PM RESEARCH COORDINATOR procedure are i n the results section. HEMOGRAM DIFFERENTIAL STAT 04/28/2005 7:53 PM Results for this AND PLATELET RESEARCH COORDINATOR procedure are i n the results section. INR STAT 04/28/2005 7:53 PM Results f or this RESEARCH COORDINATOR procedure are i n the results section. PARTIAL THROMBOPLASTIN STAT 04/28/2005 7:53 PM Results for this TIME RESEARCH COORDINATOR procedure are i n the results section. documented in this encounter Results Factor 2 assay (04/28/2005 10:15 PM RESEARCH COORDINATOR) P athologist Signature Factor 2 Assay 104 60 - 140 % MISYS Specimen Anatomical Collection Method Collection Time Receive d Time (Source) Location / / Volume Laterality 04/28/2005 10:15 04/28/2005 PM RESEARCH COORDINATOR 10:19 PM RESEARCH COORDINATOR Sugey Diaz LAB - BLOOD ORDERABLES Performing Organization Address City/State/ZIP Code Phon e Number MISYS (ABNORMAL) Hepatic panel (04/28/2005 10:15 PM RESEARCH COORDINATOR) Analysis Performed At Patho logist Time Signature [...] / Volume Laterality 04/28/2005 10:15 04/28/2005 PM RESEARCH COORDINATOR 10:19 PM RESEARCH COORDINATOR Sugey Diaz LAB - BLOOD ORDERABLES Performing Organization Address City/State/ZIP Code Phon e Number MISYS Factor 5 assay (04/28/2005 10:15 PM RESEARCH COORDINATOR) P athologist Signature Factor 5 Assay 97 60 - 140 % MISYS Specimen Anatomical Collection Method Collection Time Receive d Time (Source) Location / / Volume Laterality 04/28/2005 10:15 04/28/2005 PM RESEARCH COORDINATOR 10:19 PM RESEARCH COORDINATOR Sugey Diaz LAB - BLOOD ORDERABLES Performing Organization Address City/[facility]/ZIP Code Phon e Number MISYS Factor 9 assay (04/28/2005 10:15 PM RESEARCH COORDINATOR) P athologist Signature Factor 9 Assay 75 60 - 140 % MISYS Specimen Anatomical Collection Method Collection Time Receive d Time (Source) Location / / Volume Laterality 04/28/2005 10:15 04/28/2005 PM RESEARCH COORDINATOR 10:19 PM RESEARCH COORDINATOR Authorizing Provider Result Elizabeth Diaz LAB - BLOOD ORDERABLES Performing Organization Address City/[facility] Code Phon e Number MISYS Factor 8 assay (04/28/2005 10:15 PM RESEARCH COORDINATOR) P athologist Signature Factor 8 Assay 100 60 - 140 % MISYS Specimen Anatomical Collection Method Collection Time Receive d Time (Source) Location / / Volume Laterality 04/28/2005 10:15 04/28/2005 PM RESEARCH COORDINATOR 10:19 PM RESEARCH COORDINATOR Sugey Diaz LAB - BLOOD ORDERABLES Performing Organization Address City/State/ZIP Code Phon e Number MISYS Thrombin time (04/28/2005 10:15 PM RESEARCH COORDINATOR) P athologist Signature Thrombin Time 15.3 13.0 - 19.0 MISYS sec Specimen Anatomical Collection Method Collection Time Receive d Time (Source) Location / / Volume Laterality 04/28/2005 10:15 04/28/2005 PM RESEARCH COORDINATOR 10:40 PM RESEARCH COORDINATOR Sugey Diaz LAB - BLOOD ORDERABLES Performing Organization Address City/State/ZIP Code Phon e Number MISYS Ristocetin cofactor (04/28/2005 10:15 PM RESEARCH COORDINATOR) P athologist Signature Ristocetin 99 60 - 160 % MISYS Cofactor Comment: (Note) VWF:Ag and VWF:RCo levels are normal. Th ere is no laboratory evidence of von Willebrand disease. Maria Fernanda Posadas M.D. ?? [phone] 05/04/2005 Specimen Anatomical Collection Method Collection Time Receive d Time (Source) Location / / Volume Laterality 04/28/2005 10:15 05/03/2005 PM RESEARCH COORDINATOR 12:00 PM RESEARCH COORDINATOR Sugey Diaz LAB - BLOOD ORDERABLES Performing Organization Address [facility] Phon e Number MISYS Von Willebrand antigen (04/28/2005 10:15 PM RESEARCH COORDINATOR) athologist Signature von Willebrand 119 55 - 145 % MISYS Antigen Comment: Analyte Specific Reagents (ASRs) are use d in many laboratory tests necessary for standard medical care and generally do not require FDA approval. ??This test was developed and its performance character istics determined by [facility]. ? ?It has not been cleared or approved by the [place] Food and Drug Administration. Specimen Anatomical Collection Method Collection Time Receive d Time (Source) Location / / Volume Laterality 04/28/2005 10:15 05/03/2005 PM RESEARCH COORDINATOR 12:00 PM RESEARCH COORDINATOR Sguey Diaz LAB - BLOOD ORDERABLES Performing Organization Address [facility] Phon e Number MISYS (ABNORMAL) Partial thromboplastin time (04/28/2005 7:53 PM RESEARCH COORDINATOR) P athologist Signature PTT 39 (H) 22 - 37 sec MISYS Specimen Anatomical Collection Method Collection Time Receive d Time (Source) Location / / Volume Laterality 04/28/2005 7:53 PM 5 7:43 RESEARCH COORDINATOR PM RESEARCH COORDINATOR Sugey Diaz LAB - BLOOD ORDERABLES Performing Organization Address City/[facility] Phon e Number MISYS (ABNORMAL) Hemogram differential and platelet (04/28/2005 7:53 PM RESEARCH COORDINATOR) [facility] gist Method Time Signature MCV 82 70 [...] Volume Laterality 04/28/2005 7:53 PM 5 7:43 RESEARCH COORDINATOR PM RESEARCH COORDINATOR Sugey Diaz LAB - BLOOD ORDERABLES Performing Organization Address City/State/ZIP Code Phon e Number MISYS INR (04/28/2005 7:53 PM RESEARCH COORDINATOR) P athologist Signature INR 1.06 0.86 - 1.14 MISYS Specimen Anatomical Collection Method Collection Time Receive d Time (Source) Location / / Volume Laterality 04/28/2005 7:53 PM 5 7:43 RESEARCH COORDINATOR PM RESEARCH COORDINATOR Sugey Diaz LAB - BLOOD ORDERABLES Performing Organization Address City/State/ZIP Code Phon e Number MISYS documented in this encounter Visit Diagnoses Not on filedocumented in this encounter
--- OUTSIDE RECORDS SUMMARY | 2022-04-10 10:38 | XMS_ITS | Encounter Summary ---
:2000 Author Organization [place] Address [facility]0 [facility] [place] [address] Care Team Providers Name Role Phone Unavailable Primary Care Provider Unavailable Encounter Details Date Type Department Care Team Description 01/22/2006 Historic Results [facility] Petit MD Hospitalists [facility] [place], [place] [phone] (Wo rk) Social History Tobacco Use Types [...] Ancillary Procedure Cardiology Cordell Juarez MD [address] [place] [address] [phone] (Wo rk) 07/27/2022 Office Visit Cardiology Cordell Juarez MD [facility] [place] [address] [address] (Wo rk) documented as of this encounter [...] LAB - BLOOD ORDERABLES Performing Organization Address City/[facility]/ZIP Code Phon e Number MISYS Factor [...] LAB - BLOOD ORDERABLES Performing Organization Address [facility] Code Phon e Number MISYS Factor 2 assay (01/22/2006 10:09 AM CDT) P athologist Signature Factor 2 Assay 80 60 - 140 % MISYS Specimen Anatomical Collection Method Collection Time Receive d Time (Source) Location / / Volume Laterality 01/22/2006 10:09 01/22/2006 AM CDT 10:18 AM CDT Halina Yoder MD LAB - BLOOD ORDERABLES Performing Organization Address [facility] Code Phon e Number MISYS Factor 5 assay (01/22/2006 10:09 AM CDT) P athologist Signature Factor 5 Assay 82 60 - 140 % MISYS Specimen Anatomical Collection Method Collection Time Receive d Time (Source) Location / / Volume Laterality 01/22/2006 10:09 01/22/2006 AM CDT 10:18 AM CDT Halina Yoder MD LAB - BLOOD ORDERABLES Performing Organization Address [facility] Phon e Number MISYS Factor 7 assay (01/22/2006 10:09 AM CDT) P athologist Signature Factor 7 Assay 71 60 - 140 % MISYS Specimen Anatomical Collection Method Collection Time Receive d Time (Source) Location / / Volume Laterality 01/22/2006 10:09 01/22/2006 AM CDT 10:18 AM CDT Halina Yoder MD LAB - BLOOD ORDERABLES Performing Organization Address City/[facility] Code Phon e Number MISYS Factor 8 assay (01/22/2006 10:09 AM CDT) P athologist Signature Factor 8 Assay 121 60 - 140 % MISYS Specimen Anatomical Collection Method Collection Time Receive d Time (Source) Location / / Volume Laterality 01/22/2006 10:09 01/22/2006 AM CDT 10:18 AM CDT Halina Yoder MD LAB - BLOOD ORDERABLES Performing Organization Address City/[facility] Phon e Number MISYS Factor 9 assay (01/22/2006 10:09 AM CDT) P athologist Signature Factor 9 Assay 65 60 - 140 % MISYS Specimen Anatomical Collection Method Collection Time Receive d Time (Source) Location / / Volume Laterality 01/22/2006 10:09 01/22/2006 AM CDT 10:18 AM CDT Halina Yoder MD LAB - BLOOD ORDERABLES Performing Organization Address [facility] Phon e Number MISYS Fibrinogen activity (01/22/2006 10:09 AM CDT) P athologist Signature Fibrinogen 337 200 - 420 MISYS mg/dL Specimen Anatomical Collection Method Collection Time Receive d Time (Source) Location / / Volume Laterality 01/22/2006 10:09 01/22/2006 AM CDT 10:18 AM CDT Halina Yoder MD LAB - BLOOD ORDERABLES Performing Organization Address [facility] Phon e Number MISYS T4 free (01/22/2006 10:09 AM CDT) P athologist Signature T4 Free 1.32 0.70 - 1.85 MISYS ng/dL Specimen Anatomical Collection Method Collection Time Receive d Time (Source) Location / / Volume Laterality 01/22/2006 10:09 01/22/2006 AM CDT 10:19 AM CDT Halina Yoder MD LAB - BLOOD ORDERABLES Performing Organization Address [facility] Phon e Number MISYS INR (01/22/2006 10:09 AM CDT) P athologist Signature INR 1.08 0.86 - 1.14 MISYS Specimen Anatomical Collection Method Collection Time Receive d Time (Source) Location / / Volume Laterality 01/22/2006 10:09 01/22/2006 AM CDT 10:19 AM CDT Halina Yoder MD LAB - BLOOD ORDERABLES Performing Organization Address City/[facility]/ZIP Code Phon e Number MISYS Lupus [...] the mixing study. Maria Fernanda Posadas M.D. ??[phone] 01-23-06. Specimen Anatomical Collection Method Collection Time [...] LAB - BLOOD ORDERABLES Performing Organization Address City/State/[facility] Code Phon e Number MISYS Protein S free (01/22/2006 10:09 AM CDT) athologist Signature Protein S Free 90 70 - 135 % MISYS Specimen Anatomical Collection Method Collection Time Receive d Time (Source) Location / / Volume Laterality 01/22/2006 10:09 01/22/2006 AM CDT 10:19 AM CDT Halina Yoder MD LAB - BLOOD ORDERABLES Performing Organization Address City/[facility]/ZIP Code Phon e Number MISYS Protein S total antigen (01/22/2006 10:09 AM CDT) [facility] Method Time Signature Protein S TEST 75 - 125 MISYS Total VIRGEN CANCELLED, % SEE PROTEIN S FREE Specimen Anatomical Collection Method Collection Time Receive d Time (Source) Location / / Volume Laterality 01/22/2006 10:09 01/22/2006 AM CDT 10:19 AM CDT Halina Yoder MD LAB - BLOOD ORDERABLES Performing Organization Address City/[facility]/ZIP Code Phon e Number MISYS Partial thromboplastin time (01/22/2006 10:09 AM CDT) athologist Signature PTT 37 22 - 37 sec MISYS Specimen Anatomical Collection Method Collection Time Receive d Time (Source) Location / / Volume Laterality 01/22/2006 10:09 01/22/2006 AM CDT 10:19 AM CDT Halina Yoder MD LAB - BLOOD ORDERABLES Performing Organization Address City/[facility]/ZIP Code Phon e Number MISYS Ristocetin [...] LAB - BLOOD ORDERABLES Performing Organization Address [facility] Phon e Number MISYS TSH (01/22/2006 10:09 AM CDT) athologist Signature TSH 3.37 0.4 - 5.0 MISYS mU/L Specimen Anatomical Collection Method Collection Time Receive d Time (Source) Location / / Volume Laterality 01/22/2006 10:09 01/22/2006 AM CDT 10:19 AM CDT Halina Yoder MD LAB - BLOOD ORDERABLES Performing Organization Address [facility] Code Phon e Number MISYS Thrombin time (01/22/2006 10:09 AM CDT) athologist Signature Thrombin Time 16.6 13.0 - 19.0 MISYS sec Specimen Anatomical Collection Method Collection Time Receive d Time (Source) Location / / Volume Laterality 01/22/2006 10:09 01/22/2006 AM CDT 10:19 AM CDT Halina Yoder MD LAB - BLOOD ORDERABLES Performing Organization Address [facility] Phon e Number MISYS Von Willebrand antigen (01/22/2006 10:09 AM CDT) athologist Signature von Willebrand 122 55 - 160 % MISYS Antigen Specimen Anatomical Collection Method Collection Time Receive d Time (Source) Location / / Volume Laterality 01/22/2006 10:09 01/22/2006 AM CDT 10:19 AM CDT Halina Yoder MD LAB - BLOOD ORDERABLES Performing Organization Address [facility] Phon e Number MISYS Von Willebrand factor multimer (01/22/2006 10:09 AM CDT) athologist Signature Von Willebrand (Note) MISYS Antigen CIEP Comment: VWF:Ag and VWF:RCo levels are normal. Th ere is no laboratory evidence of von Willebrand disease. ??Von Willebr and multimer analysis is not indicated. Maria Fernanda Posadas M.D. ?? [phone] 01-23-06. Test cancelled and credited. Specimen Anatomical [...] - 15.0 MISYS % Comment: Assayed at [facility], [facility] [address] RBC Count 5.70 (H) 3.7 - 5.3 [...] Absolute Eosinophils 0.1 0.0 - 0.7 10e9/L ND SYS Absolute Basophils 0.0 0.0 - 0.2 10e9/L MISY S Diff Method Automated Method MISYS Specimen Anatomical Collection Method Collection Time Receive d Time (Source) Location / / Volume Laterality 01/22/2006 10:09 01/22/2006 AM CDT 10:19 AM CDT Halina Yoder MD LAB - BLOOD ORDERABLES Performing Organization Address [facility] Phon e Number MISYS Platelet count (01/22/2006 10:09 AM CDT) P athologist Signature Platelet Count 381 150 - 450 MISYS 10e9/L Comment: Assayed at [facility], [facility] [address] Specimen Anatomical Collection Method Collection Time Receive d Time (Source) Location / / Volume Laterality 01/22/2006 10:09 01/22/2006 AM CDT 10:24 AM CDT Halina Yoder MD LAB - BLOOD ORDERABLES Performing Organization Address [facility] Code Phon e Number MISYS Hematopathology (01/22/2006 12:00 AM CDT) Component Value Ref Test Analysis [facility]formed [facility] gist Range Method Time Signature Copath Report CASE: [id number] ^ [facility] Patient Name: JUDE BILLS MR#: [id number] Specimen #: [id number] Collected: 01/22/2006 Received: 01/22/2006 Reported: 01/22/2006 16:29 Ordering Phy(s): HALINA YODER TEST(S): Blood Smear Morphology FINAL DIAGNOSIS: ? Peripheral blood smear: ?Erythrocytosis ? No [place] bodies are seen. 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 ??He is on aspirin, digitalis, and enalapril. ??The reason for the peripheral smear is toevaluate platelet morphology f or [place] bodies. PERIPHERAL BLOOD DATA (Date: January 22) [...] is minimal. Polychromasia is not increased. No [place] bodies are seen on scanning. The platelets [...] (0-1) Occasional reactive lymphocytes are present. Reporting Child Abuse Worker: MARLYS Galarza TESTING LAB LOCATION: [facility], [address] ?? [phone] COLLECTION SITE: Client: ??[facility] Location: ??[place] (B) Specimen (Source) Anatomical Collection Method Collection Time Re ceived Time Location / / Volume Laterality 01/22/2006 01/22/2006 4:29 PM CDT Halina Yoder MD LAB - COPATH SPECIAL THAI VAN Performing Organization Address City/State/ZIP Code Phon e Number COPATH documented in this encounter Visit Diagnoses Not on filedocumented in this encounter
--- OUTSIDE RECORDS SUMMARY | 2022-04-10 10:38 | XMS_ITS | Encounter Summary ---
:2000 Author Organization [place] Address [address] [facility] [place] [address] Care Team Providers Name Role Phone Unavailable Primary Care Provider Unavailable Encounter Details Date Type Department Care Team Description 04/25/2005 Operative Report Shaji Diane MD ([place] Worker) [address] [facility] [address] [place] [address] (Wo rk) Social History Tobacco Use Types Packs/Day Years Used Date Smoking Tobacco: Never Comments: none at home Alcohol Use Standard Drinks/Week Comments Not Asked 0 (1 standard drink = 0.6 oz pure alcoho l) Sex Assigned at Date Recorded Male 03/09/2019 1:21 PM CDT documented as of this encounter Progress Notes Shaji Diane - 04/25/2005 11:59 PM HVAC MAINTENANCE TECHNICIAN PREOPERATIVE DIAGNOSES: 1. Phimosis. 2. Single ventricle status post Fontan. POSTOPERATIVE DIAGNOSES: 1. Phimosis. 2. Single ventricle status post Fontan. NAME OF OPERATION: 1. Frenulectomy of penis. 2. Sleeve circumcision. SURGEON: Shaji Diane MD RESIDENT SURGEON: Michael Roberts MD ANESTHESIA: General and local. ESTIMATED BLOOD LOSS: 2 mL. SPECIMENS: Foreskin for disposal. DRAINS: None. COMPLICATIONS: None. OPERATIVE FINDINGS: [id number] phimosis. Adhesions were relieved without incident. OPERATIVE [...] by: SHAJI DIANE MD MT: julisa Document: [id number] LCN: [id number] DSC: 04/25/2005 Name: MR#: : Procedure Date: PIERRE BILLS -51 2000 04/25/2005 OPERATIVE REPORT Page 2 of 2 MAINTENANCE TECHNICIAN documented in this encounter Plan of Treatment Upcoming Encounters Date Type Specialty Care Team Description 07/27/2022 Ancillary Procedure Cardiology Cordell Juarez MD [address] [facility] [address] [place] [address] (Wo rk) 07/27/2022 Office Visit Cardiology Cordell Juarez MD [address] [facility] [address] [place] [address] (Wo rk) documented as of this encounter Visit Diagnoses Not on filedocumented in this encounter
--- OUTSIDE RECORDS SUMMARY | 2022-04-10 10:38 | XMS_ITS | Encounter Summary ---
:2000 Author Organization [place] Address [address] [facility] [place] [address] Care Team Providers Name Role Phone Unavailable Primary Care Provider Unavailable Encounter Details Date Type Department Care Team Description 11/07/2005 Historic Results [facility] Juarez MD [facility] [address] [facility] [address] [place] [address] [place], [place] [phone] (Wo rk) Social History Tobacco Use Types [...] Ancillary Procedure Cardiology Cordell Juarez MD [address] [place] [phone] (Wo rk) 07/27/2022 Office Visit Cardiology Cordell Juarez MD [facility] [address] [phone] (Wo rk) documented as of this encounter [...] (11/07/2005 4:10 PM CDT) P athologist Signature Qsqnd-0-Achaepj 0.16 MISYS p Stool Comment: Reference range: 0.00 to 0.62 Unit: mg/g (Note) [facility], [address] [place] [id number] ?? [email or web address] Specimen Anatomical Collection Method Collection Time Receive d Time (Source) Location / / Volume Laterality 11/07/2005 4:10 PM 6 8:55 CDT AM CDT Cordell Juarez MD LAB - STOOLS ORDERABLES Performing Organization Address City/State/ZIP Code Phon e Number MISYS (ABNORMAL) Comprehensive metabolic panel (11/07/2005 2:15 PM CDT) [facility] gist Method Time Signature Sodium 140 [...]
--- OUTSIDE RECORDS SUMMARY | 2022-04-10 10:38 | XMS_ITS | Encounter Summary ---
:2000 Author Organization [place] Address [address] [place] [address] Care Team Providers Name Role Phone Unavailable Primary Care Provider Unavailable Reason for Visit Reason Comments Fever multiple sibs have strep Hives Abdominal Pain Encounter Details Date Type Department Care Team Description 06/27/2006 Office Visit [facility] Janine De La Torre STREP SORE THROAT (Primary Dx); Clinic Meir Fischer MD FEVER [address] [place] [address] [place] [address] [place] [address] [id number] (Wo rk) Social History Tobacco Use Types [...] Comments Blood Pressure 90/56 06/27/2006 10:15 AM PAINT ROLLER ASSEMBLER Pulse - - Temperature 37 ??C (98.6 ??F) 06/27/2006 10:15 AM PAINT ROLLER ASSEMBLER Respiratory Rate - - Oxygen Saturation - - Inhaled Oxygen Concentration - - Weight 18.4 kg (40 lb 8 oz) 06/27/2006 10:15 AM PAINT ROLLER ASSEMBLER Height 112.4 cm (3' 8.25) 06/27/2006 10:15 AM PAINT ROLLER ASSEMBLER Zwzllk-dug-Oeujmj Percentile 23.09 % 06/27/2006 10:15 AM PAINT ROLLER ASSEMBLER Growth Chart: CDC (Boys, 2-20 Years) Body Mass Index 14.54 06/27/2006 10:15 AM PAINT ROLLER ASSEMBLER Body Mass Index Percentile 22.79 % 06/27/2006 [...] take a make a wish trip to [facility] next week. Other symptoms: as above. History negative for: decreased appetite, decreased activity, cough and mattering conjuntivitis. Past Medical History Diagnosis Date ??? 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 INTESTINAL FIXATION ANOM s/p [place] procedure 03/2006 ??? ESOPHAGEAL REFLUX ??? ANOMALIES [...] (has had 3 open heart surgeries. ??? [place] OBJECTIVE: BP 90/56 Temp (Src) 98.6 (Oral) Ht 3' 8.25 (1.12m) Wt 40 lbs 8.0 oz (18.4kg) 10.36% of growth percentile based on [id number]. General: mildly ill appearing, non-toxic, in no [...] return if no improvement or worsening symptoms. T ROLLER ASSEMBLER documented in this encounter Nursing Notes 06/27/2006 [...] Procedure Cardiology Cordell Juarez MD [address] [facility] [place], [place] [phone] (Wo rk) 07/27/2022 Office Visit Cardiology Cordell Juarez MD [address] [place], [place] [address] (Wo rk) documented as of this encounter Procedures Procedure Name Priority Date/Time Associated Diagnosis Comme nts HCL STREP GROUP A Routine 06/27/2006 10:46 AM Fever Res ults for this AG (RAPID) PAINT ROLLER ASSEMBLER procedure are i n the results section. documented in this encounter Results STREP GROUP A AG (RAPID) (06/27/2006 10:46 AM PAINT ROLLER ASSEMBLER) Component Value Ref Test Analysis Performed At [facility] Range Method Time Signature Specimen Throat [facility] LAB Rapid Strep A POSITIVE: Group [place] Screen A Streptococcal [facility] antigen detected CLINIC LAB by immunoassay. Report status FINAL [id number] [facility] Specimen Anatomical Collection Method Collection Time Receive d Time (Source) Location / / Volume Laterality 06/27/2006 10:46 06/27/2006 AM PAINT ROLLER ASSEMBLER 10:47 AM PAINT ROLLER ASSEMBLER Janine De La Torre MD LABORATORY Performing Organization Address City/State/ZIP Code Phon e Number [facility] [address] [place], [place] [address] [address] [facility] documented in this encounter Visit Diagnoses Diagnosis Streptococcal sore throat - Primary Fever and other physiologic disturbances of temperature regulation documented in this encounter
--- OUTSIDE RECORDS SUMMARY | 2022-04-10 10:38 | XMS_ITS | Encounter Summary ---
:2000 Author Organization [place] Address [facility] [place] [address] Care Team Providers Name Role Phone Unavailable Primary Care Provider Unavailable Encounter Details Date Type Department Care Team Description 04/03/2006 Operative Report Pete Dodd MD (Hand Crown Pouncer) [facility] [address] [place], [place] [address] Social History Tobacco Use Types Packs/Day Years Used Date Smoking Tobacco: Never Comments: none at home Alcohol Use Standard Drinks/Week Comments Not Asked 0 (1 standard drink = 0.6 oz pure alcoho l) Sex Assigned at Date Recorded Male 03/09/2019 1:21 PM CDT documented as of this encounter Progress Notes Jostin Dodd - 04/15/2006 1:39 PM SUPERVISOR CARTOGR[employer]HY FINAL PREOPERATIVE DIAGNOSIS: Malrotation. POSTOPERATIVE DIAGNOSIS: Malrotation. [...] was performed and the duodenum was mobilized. Bridgeton's bands were taken down with blunt and [...] DODD MD MT: Name: PIERRE BILLS Account: [id number] : 2000 Procedure Date: 04/03/2006 Document: [id number] cc: Cordell Blackwell MD [facility] Surgery Billing RVISOR CARTOGRAPHY documented in this encounter Plan of Treatment Upcoming Encounters Date Type Specialty Care Team Description 07/27/2022 Ancillary Procedure Cardiology Cordell Juarez MD [address] [facility] [address] [place] [address] (Wo rk) 07/27/2022 Office Visit Cardiology Cordell Juarez MD [address] [place] [address] [place] [address] (Wo rk) documented as of this encounter Visit Diagnoses Not on filedocumented in this encounter
--- OUTSIDE RECORDS SUMMARY | 2022-04-10 10:38 | XMS_ITS | Encounter Summary ---
:2000 Author Organization [place] Address [address] [place] [address]. [place] [address] Care Team Providers Name Role Phone Unavailable Primary Care Provider Unavailable Encounter Details Date Type Department Care Team Description 01/22/2006 Results Only [facility] Cordell Juarez MD [address] Results [place] [id number] (Wo rk) Social History Tobacco Use Types [...] Ancillary Procedure Cardiology Cordell Juarez MD [address] [place] [address] [phone] (Wo rk) 07/27/2022 Office Visit Cardiology Cordell Juarez MD [address] [place] [address] [phone] (Wo rk) documented as of this encounter [...] ventricle. Evaluate for malrotation. Findings: On the photographic specialist view, there are m idline sternotomy [...]
== END 2022-04-10 10:39 | disposition home or self-care (01) ==
PROVIDERS: Emergency Provider Family Medicine; PCP Family Medicine
DX: S63.602A Unspecified sprain of left thumb, initial encounter (principal); Y93.75 Activity, martial arts
CPT/HCPCS: 73140; 99283; A9270